=== PATIENT | female | born 1945 | race Caucasian/White ===

== ENCOUNTER 2016-11-19 08:20 | Inpatient (IN) | payer OTHER ==
[~2016-11-19] VITALS: Ht 162.6 cm; Wt 64.3 kg
[~2016-11-19 08:20] MED LIST: ALBU0.08 HHN; ALBUAER3 IN; ASP81EC PO; ATOR20TA50 PO; CARV6.2551 PO; CLOP75TA28 PO; CLOP75TA41 PO; FURO40TA4 PO; LISI-275 PO; NITR0.4S29 SL; POTA10SO11 PO
[2016-11-19 10:46] LABS: Basophils # (auto) 0.1 uL; Basophils % (auto) 0.8 % (0.0-2.0); CONDITION Y; Eosinophils # (auto) 0.1 uL; Eosinophils % (auto) 1.2 % (0.0-7.0); Hematocrit 44.5 % (36.0-46.0); Hemoglobin 14.7 g/dL (12.2-16.2); Lymphocytes # (auto) 2.1 uL; Lymphocytes % (auto) 19.4 % (10.0-50.0); Mean Corpuscular Hemoglobin 28.8 pg (28.0-32.0); Mean Corpuscular Volume 87.4 fL (80.0-100.0); Mean Platelet Volume 8.6 fL (7.4-10.4); Monocytes # (auto) 0.7 uL; Monocytes % (auto) 6.5 % (0.0-12.0); Neutrophils # (auto) 7.7 uL; Neutrophils % (auto) 72.1 % (37.0-80.0); Platelet Count (auto) 249 10^3/uL (140-450); Red Cell Distribution Width 17.2 % (11.6-16.0); White Blood Cell 10.7 10^3/uL (4.4-10.8)
[2016-11-19] MEDS ORDERED: methylPREDNISolone SOD SUCC 125 MG/2 ML VL IV ONE (11:00)
[2016-11-19] MEDS ORDERED: IPRATROPIUM BROM 0.5 MG/2.5ML INH SOL NEB ONE (11:00)
[2016-11-19] MEDS ORDERED: ALBUTEROL SULF 2.5 MG/0.5ML(0.5%) NEB SOLN NEB ONE (11:00)
[2016-11-19] MEDS ORDERED: FUROSEMIDE 20 MG/2 ML VIAL IV ONE (11:00)
[2016-11-19 11:01] LABS: INR 0.96 (0.9-1.15); Partial Thromboplastin Time 25.4 sec (22.64-33.71); Prothrombin Time 10.5 sec (9.37-12.3)
[2016-11-19 11:07] LABS: Albumin 3.6 g/dL (3.4-5.0); BUN/Creatinine Ratio 26.2; Calcium 8.7 mg/dL (8.5-10.1); Potassium 4.8 mmol/L (3.5-5.1)
[2016-11-19 11:10] LABS: Bilirubin, Total 1.2 mg/dL (0.2-1.0); Total Protein 6.7 g/dL (6.4-8.2)
[2016-11-19 11:46] LABS: Urine Bilirubin Negative (Negative); Urine Blood Negative /uL (Negative); Urine Color Yellow (Yellow); Urine Glucose Normal (Normal); Urine Hyaline Cast MOD /lpf (0 - 2); Urine Ketone Negative (Negative); Urine Nitrite Negative (Negative); Urine RBC 1 /hpf (0 - 4); Urine Squamous Epithelial Cell FEW /hpf (<5); Urine Urobilinogen Normal (Negative)
[2016-11-19 12:27] LABS: B-Type Natriuretic Peptide 2614.69 pg/mL (0-100)
[2016-11-19] MEDS ORDERED: ENOXAPARIN SOD 60 MG/0.6 ML SYRINGE SC ONE (12:30)
[2016-11-19] MEDS ORDERED: ONDANSETRON HCL 4 MG/2 ML VIAL IV ONE (12:45)
[2016-11-19] MEDS ORDERED: MORPHINE SULFATE 4 MG/ML SYRG IV ONE (12:45)
[2016-11-19 13:06] LABS: Temperature: 24.1 C (20.0-25.0)
[2016-11-19] MEDS ORDERED: NITROGLYCERIN 0.4 MG SL TAB SL PRN ×2 (15:00)
[2016-11-19] MEDS ORDERED: ZOLPIDEM TARTRATE 5 MG TAB PO PRN (15:00)
[2016-11-19] MEDS ORDERED: cefTRIAXone 1GM/50ML D5W 50 ML IV ONE (15:00)
[2016-11-19] MEDS ORDERED: LORazepam 0.5 MG TAB PO PRN (15:00)
[2016-11-19] MEDS ORDERED: ACETAMINOPHEN 325 MG TAB PO PRN (15:00)
[2016-11-19] MEDS: ONDANSETRON HCL 4 MG/2 ML VIAL IV PRN ×2 (15:26→20:30)
[2016-11-19] MEDS: HYDROmorphone HCL 2 MG/ML VL IV PRN ×2 (15:26→20:25)
[2016-11-19 15:43] VITALS: BP 125/75
[2016-11-19] MEDS: FUROSEMIDE 40 MG/4 ML VIAL IV SCH (18:00)
[2016-11-19 18:06] VITALS: BP 120/80
[2016-11-19] MEDS: ALBUTEROL SULF 2.5 MG/0.5ML(0.5%) NEB SOLN NEB SCH (18:41)
[2016-11-19 19:30] VITALS: BP 124/88
[2016-11-19] MEDS: ATORVASTATIN 20 MG TAB PO SCH (20:30)
[2016-11-19] MEDS: CARVEDILOL 3.125 MG TAB PO SCH (20:31)
[2016-11-19 22:00] VITALS: BP 124/88
[2016-11-19] MEDS: SODIUM CHLOR 0.9% PF (SALINE LOCK) 10ML VIAL IV SCH (22:00)
[2016-11-20] MEDS: ONDANSETRON HCL 4 MG/2 ML VIAL IV PRN ×3 (02:06→18:58)
[2016-11-20] MEDS: HYDROmorphone HCL 2 MG/ML VL IV PRN ×3 (02:06→18:58)
[2016-11-20 05:00] VITALS: BP 115/75
[2016-11-20] MEDS: ALBUTEROL SULF 2.5 MG/0.5ML(0.5%) NEB SOLN NEB SCH ×4 (06:03→19:28)
[2016-11-20 06:06] LABS: Basophils # (auto) 0 uL; Basophils % (auto) 0.5 % (0.0-2.0); CONDITION Y; Eosinophils # (auto) 0 uL; Eosinophils % (auto) 0.1 % (0.0-7.0); Hematocrit 43.8 % (36.0-46.0); Hemoglobin 14.4 g/dL (12.2-16.2); Lymphocytes # (auto) 1.1 uL; Lymphocytes % (auto) 14.7 % (10.0-50.0); Mean Corpuscular Hemoglobin 28.7 pg (28.0-32.0); Monocytes # (auto) 0.3 uL; Monocytes % (auto) 3.5 % (0.0-12.0); Neutrophils # (auto) 6.3 uL; Neutrophils % (auto) 81.2 % (37.0-80.0); Platelet Count (auto) 280 10^3/uL (140-450); Red Cell Distribution Width 16.9 % (11.6-16.0); SUSPECT SEE PRINTOUT; White Blood Cell 7.7 10^3/uL (4.4-10.8)
[2016-11-20] MEDS: FUROSEMIDE 40 MG/4 ML VIAL IV SCH ×2 (06:14→18:00)
[2016-11-20 06:26] LABS: Albumin 3.5 g/dL (3.4-5.0); BUN/Creatinine Ratio 30.3; Bilirubin, Total 0.7 mg/dL (0.2-1.0); Calcium 8.4 mg/dL (8.5-10.1); Magnesium 2.5 mg/dL (1.6-2.6); Potassium 4.3 mmol/L (3.5-5.1); Total Protein 6.5 g/dL (6.4-8.2)
[2016-11-20] MEDS: SODIUM CHLOR 0.9% PF (SALINE LOCK) 10ML VIAL IV SCH ×3 (07:37→22:16)
[2016-11-20 08:00] VITALS: BP 115/75
[2016-11-20 08:28] VITALS: BP 127/84
[2016-11-20] MEDS: cefTRIAXone 1GM/50ML D5W 50 ML IV SCH (09:35)
[2016-11-20] MEDS: CLOPIDOGREL BISULFATE 75 MG TAB PO SCH (09:35)
[2016-11-20] MEDS: ASPirin 81 mg TAB PO SCH (09:36)
[2016-11-20] MEDS: LISINOPRIL 5 MG TAB PO SCH (09:36)
[2016-11-20] MEDS: POTASSIUM CHL 20 Meq TABLET PO SCH (09:36)
[2016-11-20] MEDS: DOCUSATE SOD 100 MG CAP PO SCH (09:36)
[2016-11-20] MEDS: CARVEDILOL 3.125 MG TAB PO SCH ×2 (09:37→22:00)
[2016-11-20] MEDS ORDERED: POTASSIUM CHL 10% (20 MEQ/15ML) ORAL SOLN PO ONE (12:15)
[2016-11-20] MEDS ORDERED: FUROSEMIDE 20 MG/2 ML VIAL IV ONE (12:15)
[2016-11-20 12:59] VITALS: BP 100/60
[2016-11-20 16:28] VITALS: BP 92/48
[2016-11-20] MEDS: ATORVASTATIN 20 MG TAB PO SCH (22:00)
[2016-11-20 22:15] VITALS: BP 104/60
[2016-11-21 05:05] VITALS: BP 103/63
[2016-11-21] MEDS: SODIUM CHLOR 0.9% PF (SALINE LOCK) 10ML VIAL IV SCH ×3 (05:37→21:35)
[2016-11-21] MEDS: FUROSEMIDE 40 MG/4 ML VIAL IV SCH (05:42)
[2016-11-21 06:54] LABS: Basophils # (auto) 0.1 uL; Basophils % (auto) 1.1 % (0.0-2.0); CONDITION Y; Eosinophils # (auto) 0.2 uL; Eosinophils % (auto) 1.7 % (0.0-7.0); Hematocrit 45.7 % (36.0-46.0); Hemoglobin 15.4 g/dL (12.2-16.2); Lymphocytes # (auto) 2.1 uL; Lymphocytes % (auto) 19.1 % (10.0-50.0); Mean Corpuscular Hemoglobin 29.3 pg (28.0-32.0); Mean Corpuscular Hgb Conc. 33.8 g/dL (32.0-36.0); Mean Corpuscular Volume 86.7 fL (80.0-100.0); Mean Platelet Volume 8.8 fL (7.4-10.4); Monocytes # (auto) 0.8 uL; Monocytes % (auto) 6.9 % (0.0-12.0); Neutrophils # (auto) 7.8 uL; Neutrophils % (auto) 71.2 % (37.0-80.0); Platelet Count (auto) 301 10^3/uL (140-450); Red Cell Distribution Width 16.5 % (11.6-16.0); White Blood Cell 10.9 10^3/uL (4.4-10.8)
[2016-11-21] MEDS: ALBUTEROL SULF 2.5 MG/0.5ML(0.5%) NEB SOLN NEB SCH ×4 (07:07→19:42)
[2016-11-21 07:39] LABS: Albumin 3.5 g/dL (3.4-5.0); BUN/Creatinine Ratio 29.7; Bilirubin, Total 0.5 mg/dL (0.2-1.0); Calcium 8.5 mg/dL (8.5-10.1); Magnesium 2.7 mg/dL (1.6-2.6); Potassium 4.4 mmol/L (3.5-5.1); Total Protein 6.8 g/dL (6.4-8.2)
[2016-11-21 09:00] VITALS: BP 98/69
[2016-11-21] MEDS: cefTRIAXone 1GM/50ML D5W 50 ML IV SCH (09:19)
[2016-11-21] MEDS: ASPirin 81 mg TAB PO SCH (09:20)
[2016-11-21] MEDS: POTASSIUM CHL 20 Meq TABLET PO SCH (09:20)
[2016-11-21] MEDS: DOCUSATE SOD 100 MG CAP PO SCH (09:20)
[2016-11-21] MEDS: CLOPIDOGREL BISULFATE 75 MG TAB PO SCH (09:20)
[2016-11-21] MEDS: CARVEDILOL 3.125 MG TAB PO SCH ×2 (09:25→21:49)
[2016-11-21] MEDS: LISINOPRIL 5 MG TAB PO SCH (09:26)
[2016-11-21 13:05] VITALS: BP 106/76
[2016-11-21] MEDS ORDERED: KETOROLAC TROMETH 30 MG/ML 1ML VIAL IV ONE (15:45)
[2016-11-21 17:00] VITALS: BP 95/58
[2016-11-21] MEDS: ONDANSETRON HCL 4 MG/2 ML VIAL IV PRN (20:46)
[2016-11-21] MEDS: ATORVASTATIN 20 MG TAB PO SCH (21:35)
[2016-11-21 22:12] VITALS: BP 101/64
[2016-11-22 05:21] VITALS: BP 114/80
[2016-11-22] MEDS: SODIUM CHLOR 0.9% PF (SALINE LOCK) 10ML VIAL IV SCH ×3 (06:07→21:27)
[2016-11-22] MEDS: ONDANSETRON HCL 4 MG/2 ML VIAL IV PRN ×4 (06:48→21:58)
[2016-11-22 07:01] LABS: BUN/Creatinine Ratio 41.1; Calcium 8.6 mg/dL (8.5-10.1); Potassium 4.9 mmol/L (3.5-5.1)
[2016-11-22 07:08] LABS: B-Type Natriuretic Peptide 440.15 pg/mL (0-100)
[2016-11-22 07:17] LABS: Temperature: 23.9 C (20.0-25.0)
[2016-11-22] MEDS: ALBUTEROL SULF 2.5 MG/0.5ML(0.5%) NEB SOLN NEB SCH ×3 (07:48→19:33)
[2016-11-22 08:00] VITALS: BP 117/73
[2016-11-22 09:00] VITALS: BP 117/73
[2016-11-22] MEDS: CLOPIDOGREL BISULFATE 75 MG TAB PO SCH (09:34)
[2016-11-22] MEDS: ASPirin 81 mg TAB PO SCH (09:34)
[2016-11-22] MEDS: FUROSEMIDE 40 MG TAB PO SCH (09:34)
[2016-11-22] MEDS: DOCUSATE SOD 100 MG CAP PO SCH (09:34)
[2016-11-22] MEDS: LISINOPRIL 5 MG TAB PO SCH (09:35)
[2016-11-22] MEDS: CARVEDILOL 3.125 MG TAB PO SCH ×2 (09:36→21:53)
[2016-11-22] MEDS ORDERED: POTASSIUM CHL 20 Meq TABLET PO SCH (10:00)
[2016-11-22] MEDS ORDERED: FUROSEMIDE 40 MG/4 ML VIAL IV SCH (10:00)
[2016-11-22 12:59] VITALS: BP 125/65
[2016-11-22] MEDS: HYDROcodone-ACET 5/325MG TAB PO PRN ×2 (15:57→20:07)
[2016-11-22 17:13] VITALS: BP 115/67
[2016-11-22] MEDS: ATORVASTATIN 20 MG TAB PO SCH (21:27)
[2016-11-22 22:00] VITALS: BP 109/65
[2016-11-23] VITALS (7 sets, daily range): BP systolic 101–119; BP diastolic 51–74
[2016-11-23] MEDS: ALBUTEROL SULF 2.5 MG/0.5ML(0.5%) NEB SOLN NEB SCH ×3 (02:51→19:15)
[2016-11-23] MEDS: ONDANSETRON HCL 4 MG/2 ML VIAL IV PRN ×2 (02:57→07:54)
[2016-11-23] MEDS: HYDROcodone-ACET 5/325MG TAB PO PRN ×2 (02:57→07:54)
[2016-11-23] MEDS: SODIUM CHLOR 0.9% PF (SALINE LOCK) 10ML VIAL IV SCH ×2 (05:34→13:16)
[2016-11-23 07:38] LABS: BUN/Creatinine Ratio 31.5; Calcium 8.2 mg/dL (8.5-10.1); Potassium 4.7 mmol/L (3.5-5.1)
[2016-11-23] MEDS: CLOPIDOGREL BISULFATE 75 MG TAB PO SCH (09:14)
[2016-11-23] MEDS: DOCUSATE SOD 100 MG CAP PO SCH (09:14)
[2016-11-23] MEDS: ASPirin 81 mg TAB PO SCH (09:14)
[2016-11-23] MEDS: LISINOPRIL 5 MG TAB PO SCH (09:15)
[2016-11-23] MEDS: FUROSEMIDE 40 MG TAB PO SCH (09:15)
[2016-11-23] MEDS: CARVEDILOL 3.125 MG TAB PO SCH (09:15)
[2016-11-23] MEDS ORDERED: ATOR20TA50 PO (10:43)
[2016-11-23] MEDS ORDERED: CAR3125T PO (10:43)
[2016-11-23] MEDS ORDERED: LISI-275 PO (10:43)
[2016-11-23] MEDS ORDERED: FURO40TA4 PO (10:43)
[2016-11-23] MEDS ORDERED: ASP81EC PO (10:43)
[2016-11-23] MEDS ORDERED: CLOP75TA28 PO (10:43)
== END 2016-11-23 22:42 | disposition home or self-care (01) | DRG 291 ==
LOC: EDUNIT# 08:20 → ER 08:24 → TELE 08:25 → TELE-E-ADS 17:45 → TELE-WESTW 19:15
PROVIDERS: ADMIT Internal Medicine; ATTEND Internal Medicine
DX: I13.0 Hypertensive heart and chronic kidney disease with heart failure and stage 1 through stage 4 chronic kidney disease, or unspecified chronic kidney disease (principal); I50.43 Acute on chronic combined systolic (congestive) and diastolic (congestive) heart failure; J44.1 Chronic obstructive pulmonary disease with (acute) exacerbation; J96.11 Chronic respiratory failure with hypoxia; I24.9 Acute ischemic heart disease, unspecified; J44.0 Chronic obstructive pulmonary disease with (acute) lower respiratory infection; R65.10 Systemic inflammatory response syndrome (SIRS) of non-infectious origin without acute organ dysfunction; F15.10 Other stimulant abuse, uncomplicated; I25.10 Atherosclerotic heart disease of native coronary artery without angina pectoris; E78.5 Hyperlipidemia, unspecified; J20.9 Acute bronchitis, unspecified; N18.3 Chronic kidney disease, stage 3 (moderate); I25.5 Ischemic cardiomyopathy; Z99.81 Dependence on supplemental oxygen; Z91.14 Patient's other noncompliance with medication regimen; Z95.810 Presence of automatic (implantable) cardiac defibrillator; Z95.1 Presence of aortocoronary bypass graft; I25.2 Old myocardial infarction; Z90.49 Acquired absence of other specified parts of digestive tract; Z90.89 Acquired absence of other organs; Z90.710 Acquired absence of both cervix and uterus; Z88.5 Allergy status to narcotic agent
CPT/HCPCS: 36415; 70450; 71010; 71020; 80048; 80053; 80061; 80307; 81001; 83735; 83880; 84484; 85025; 85610; 85730; 87040; 93005; 93306; 94640; 96365; 96372; 96375; J0696; J1885; J2405

== ENCOUNTER 2017-06-07 03:04 | Inpatient (IN) | payer MEDICARE, OTHER ==
[~2017-06-07] VITALS: Ht 162.6 cm; Wt 65.3 kg
[~2017-06-07 03:04] MED LIST changes: +ALPR0.254 PO; -ASP81EC PO; +CAR3125T PO; -CARV6.2551 PO; -CLOP75TA41 PO; +DIG0125T PO; +FURO40TA PO; -LISI-275 PO; +MEX150C PO; -NITR0.4S29 SL; +RANO500T2 PO; +TRAM50TA2 PO; +[UNRECOGNIZED DRUG - CODE] PO
[2017-06-07] MEDS ORDERED: HYDROmorphone HCL 2 MG/ML VL IV ONE (04:45)
[2017-06-07] MEDS ORDERED: ONDANSETRON HCL 4 MG/2 ML VIAL IV ONE (04:45)
[2017-06-07 05:42] LABS: Basophils # (auto) 0.1 uL; Basophils % (auto) 0.8 % (0.0-2.0); Eosinophils # (auto) 0.1 uL; Eosinophils % (auto) 0.6 % (0.0-7.0); Hematocrit 45.9 % (36.0-46.0); Hemoglobin 15.7 g/dL (12.2-16.2); Lymphocytes # (auto) 1.7 uL; Lymphocytes % (auto) 15.6 % (10.0-50.0); Mean Corpuscular Hemoglobin 29.8 pg (28.0-32.0); Mean Corpuscular Hgb Conc. 34.1 g/dL (32.0-36.0); Mean Corpuscular Volume 87.4 fL (80.0-100.0); Monocytes # (auto) 0.6 uL; Monocytes % (auto) 5.8 % (0.0-12.0); Neutrophils # (auto) 8.2 uL; Neutrophils % (auto) 77.2 % (37.0-80.0); Nucleated Red Blood Cells % 0.1 %; Platelet Count (auto) 230 10^3/uL (140-450); Red Blood Cells 5.25 10^6/uL (4.0-5.20); Red Cell Distribution Width 14.2 % (11.8-14.3); White Blood Cell 10.7 10^3/uL (4.4-10.8)
[2017-06-07 05:55] LABS: INR 0.95 (0.9-1.15); Partial Thromboplastin Time 31.3 sec (22.64-33.71); Prothrombin Time 10.4 sec (9.37-12.3)
[2017-06-07 05:57] LABS: Albumin 3.6 g/dL (3.4-5.0); BUN/Creatinine Ratio 19.5; Calcium 8.8 mg/dL (8.5-10.1); Potassium 4.1 mmol/L (3.5-5.1)
[2017-06-07 06:01] LABS: Total Protein 7.1 g/dL (6.4-8.2)
[2017-06-07 06:25] LABS: Urine Bacteria NONE SEEN /hpf (None Seen); Urine Blood Negative /uL (Negative); Urine Hyaline Cast FEW /lpf (0 - 2); Urine Mucus FEW (None Seen); Urine Specific Gravity 1.024 (1.001-1.035); Urine WBC 6 /hpf (0 - 5)
[2017-06-07] MEDS ORDERED: FUROSEMIDE 40 MG/4 ML VIAL IV ONE ×2 (07:30→16:30)
[2017-06-07] MEDS ORDERED: LACTULOSE 20Gm/30ML SOLN PO PRN (09:00)
[2017-06-07] MEDS ORDERED: TEMAZEPAM 15 MG CAP PO PRN (09:00)
[2017-06-07] MEDS: cefTRIAXone 1GM/10ml IVPUSH 10 ML IV SCH (09:00)
[2017-06-07] MEDS ORDERED: ALBUTEROL SULF 2.5 MG/0.5ML(0.5%) NEB SOLN NEB PRN (09:00)
[2017-06-07] MEDS ORDERED: NITROGLYCERIN 0.4 MG SL TAB SL PRN (09:00)
[2017-06-07] MEDS ORDERED: ACETAMINOPHEN 500 MG TAB PO PRN (09:00)
[2017-06-07] MEDS ORDERED: HYDROcodone-ACET 5/325MG TAB PO PRN (09:00)
[2017-06-07] MEDS ORDERED: OSELTAMIVIR 75 MG CAP PO ONE (09:00)
[2017-06-07] MEDS ORDERED: ALPRAZolam 0.25 MG TAB PO PRN (09:00)
[2017-06-07] MEDS ORDERED: LORazepam 0.5 MG TAB PO PRN (09:00)
[2017-06-07] MEDS ORDERED: IOHEXOL 350 MG/ML 100ML IJ ONE (09:09)
[2017-06-07] MEDS: ENOXAPARIN SOD 60 MG/0.6 ML SYRINGE SC SCH ×2 (09:53→22:23)
[2017-06-07] MEDS: FUROSEMIDE 40 MG/4 ML VIAL IV SCH (09:54)
[2017-06-07] MEDS: ASPirin 81 mg TAB PO SCH (09:55)
[2017-06-07] MEDS: CARVEDILOL 3.125 MG TAB PO SCH ×2 (09:55→22:00)
[2017-06-07] MEDS: CLOPIDOGREL BISULFATE 75 MG TAB PO SCH (09:55)
[2017-06-07] MEDS: MEXILETINE HYDROCHLORIDE 150 MG CAP PO SCH ×2 (09:56→22:36)
[2017-06-07] MEDS: PANTOPRAZOLE 40 MG TAB PO SCH (09:56)
[2017-06-07] MEDS: ENALAPRIL MALEATE 2.5 MG TAB PO SCH (09:57)
[2017-06-07] MEDS: NITROGLYCERIN 0.2MG/HR TOPICAL PATCH TD SCH (09:59)
[2017-06-07] MEDS ORDERED: DIGOXIN 0.125 MG TAB PO SCH (10:00)
[2017-06-07] MEDS: DOXYCYCLINE HYC 100MG/250ML 250 ML IV SCH ×2 (10:00→22:00)
[2017-06-07] MEDS ORDERED: POTASSIUM CHL 20 Meq TABLET PO SCH (10:00)
[2017-06-07 10:14] LABS: Alcohol, Urine < 3.0 mg/dL (0-5); Amphetamine Screen, Urine POSITIVE (NEGATIVE); Barbiturate Scree,Urine NEGATIVE (NEGATIVE); Benzodiazephine Screen, Urine NEGATIVE (NEGATIVE); Cannabinoid Screen, Urine NEGATIVE (NEGATIVE); Cocaine Screen, Urine NEGATIVE (NEGATIVE); Opiate Scree,Urine NEGATIVE (NEGATIVE); Phencyclidine Screen, Urine NEGATIVE (NEGATIVE)
[2017-06-07] MEDS: PROMETHAZINE HCL 25 MG/ML 1ML IV PRN ×2 (10:34→22:22)
[2017-06-07] MEDS: HYDROmorphone HCL 2 MG/ML VL IV PRN ×4 (10:34→23:05)
[2017-06-07 10:43] VITALS: BP 131/84
[2017-06-07] MEDS: RANOLAZINE ER 500 MG TAB PO SCH ×3 (11:27→23:08)
[2017-06-07] MEDS: POTASSIUM CHL 20 Meq TABLET PO SCH ×2 (12:08→18:25)
[2017-06-07] MEDS: IPRATROPIUM BROM 0.5 MG/2.5ML INH SOL NEB SCH ×2 (12:40→19:53)
[2017-06-07] MEDS: ALBUTEROL SULF 2.5 MG/0.5ML(0.5%) NEB SOLN NEB SCH ×2 (12:40→19:54)
[2017-06-07] MEDS: SODIUM CHLOR 0.9% PF (SALINE LOCK) 10ML VIAL IV SCH ×2 (15:09→22:00)
[2017-06-07 20:00] VITALS: BP 99/81
[2017-06-07] MEDS: ATORVASTATIN 20 MG TAB PO SCH (22:36)
[2017-06-07 22:48] VITALS: BP 98/81
[2017-06-07] MEDS: OSELTAMIVIR 75 MG CAP PO SCH (23:05)
[2017-06-08] MEDS: ALBUTEROL SULF 2.5 MG/0.5ML(0.5%) NEB SOLN NEB SCH ×3 (00:49→12:00)
[2017-06-08] MEDS: IPRATROPIUM BROM 0.5 MG/2.5ML INH SOL NEB SCH ×4 (00:50→18:25)
[2017-06-08] MEDS: PROMETHAZINE HCL 25 MG/ML 1ML IV PRN ×3 (03:50→21:30)
[2017-06-08] MEDS: HYDROmorphone HCL 2 MG/ML VL IV PRN ×3 (03:50→21:30)
[2017-06-08] MEDS: SODIUM CHLOR 0.9% PF (SALINE LOCK) 10ML VIAL IV SCH ×3 (05:45→21:26)
[2017-06-08 05:49] VITALS: BP 82/57
[2017-06-08 07:19] LABS: Basophils # (auto) 0 uL; Basophils % (auto) 0.7 % (0.0-2.0); Eosinophils # (auto) 0.3 uL; Eosinophils % (auto) 4.6 % (0.0-7.0); Hematocrit 51.9 % (36.0-46.0); Hemoglobin 16.7 g/dL (12.2-16.2); Lymphocytes # (auto) 1.4 uL; Lymphocytes % (auto) 23.4 % (10.0-50.0); Mean Corpuscular Hemoglobin 29.6 pg (28.0-32.0); Mean Corpuscular Hgb Conc. 32.2 g/dL (32.0-36.0); Mean Corpuscular Volume 91.9 fL (80.0-100.0); Monocytes # (auto) 0.5 uL; Monocytes % (auto) 9.2 % (0.0-12.0); Neutrophils # (auto) 3.6 uL; Neutrophils % (auto) 62.1 % (37.0-80.0); Nucleated Red Blood Cells % 0.2 %; Platelet Count (auto) 182 10^3/uL (140-450); Red Blood Cells 5.65 10^6/uL (4.0-5.20); Red Cell Distribution Width 15.2 % (11.8-14.3); White Blood Cell 5.9 10^3/uL (4.4-10.8)
[2017-06-08 07:55] LABS: BUN/Creatinine Ratio 19.6; Bilirubin, Total 0.6 mg/dL (0.2-1.0); Potassium 4.4 mmol/L (3.5-5.1); Total Protein 6.4 g/dL (6.4-8.2)
[2017-06-08 08:00] VITALS: BP 99/81
[2017-06-08 09:00] VITALS: BP 101/67
[2017-06-08] MEDS: POTASSIUM CHL 20 Meq TABLET PO SCH ×3 (09:28→18:05)
[2017-06-08] MEDS: cefTRIAXone 1GM/10ml IVPUSH 10 ML IV SCH (09:28)
[2017-06-08] MEDS: ENOXAPARIN SOD 60 MG/0.6 ML SYRINGE SC SCH ×2 (10:00→21:28)
[2017-06-08] MEDS: OSELTAMIVIR 75 MG CAP PO SCH ×3 (10:00→21:55)
[2017-06-08] MEDS: RANOLAZINE ER 500 MG TAB PO SCH ×2 (10:00→21:29)
[2017-06-08] MEDS: DOXYCYCLINE HYC 100MG/250ML 250 ML IV SCH ×2 (10:46→21:30)
[2017-06-08] MEDS: FUROSEMIDE 40 MG/4 ML VIAL IV SCH (10:46)
[2017-06-08] MEDS: ASPirin 81 mg TAB PO SCH (10:46)
[2017-06-08] MEDS: MEXILETINE HYDROCHLORIDE 150 MG CAP PO SCH ×2 (10:48→21:27)
[2017-06-08] MEDS: CLOPIDOGREL BISULFATE 75 MG TAB PO SCH (10:48)
[2017-06-08] MEDS: PANTOPRAZOLE 40 MG TAB PO SCH (10:48)
[2017-06-08] MEDS: CARVEDILOL 3.125 MG TAB PO SCH ×2 (10:48→21:28)
[2017-06-08] MEDS: ENALAPRIL MALEATE 2.5 MG TAB PO SCH (10:50)
[2017-06-08] MEDS: NITROGLYCERIN 0.2MG/HR TOPICAL PATCH TD SCH (10:50)
[2017-06-08 13:00] VITALS: BP 115/76
[2017-06-08 17:00] VITALS: BP 112/67
[2017-06-08] MEDS: ATORVASTATIN 20 MG TAB PO SCH (21:27)
[2017-06-08 22:14] VITALS: BP 121/82
[2017-06-09] VITALS (7 sets, daily range): BP systolic 94–132; BP diastolic 56–90
[2017-06-09] MEDS: IPRATROPIUM BROM 0.5 MG/2.5ML INH SOL NEB SCH ×4 (00:22→18:41)
[2017-06-09] MEDS: PROMETHAZINE HCL 25 MG/ML 1ML IV PRN ×2 (02:35→09:12)
[2017-06-09] MEDS: HYDROmorphone HCL 2 MG/ML VL IV PRN ×2 (02:36→09:11)
[2017-06-09] MEDS: SODIUM CHLOR 0.9% PF (SALINE LOCK) 10ML VIAL IV SCH ×3 (06:52→22:00)
[2017-06-09] MEDS: POTASSIUM CHL 20 Meq TABLET PO SCH ×3 (09:11→17:46)
[2017-06-09] MEDS: cefTRIAXone 1GM/10ml IVPUSH 10 ML IV SCH (09:11)
[2017-06-09] MEDS: FUROSEMIDE 40 MG/4 ML VIAL IV SCH (11:55)
[2017-06-09] MEDS: DOXYCYCLINE HYC 100MG/250ML 250 ML IV SCH (11:55)
[2017-06-09] MEDS: ASPirin 81 mg TAB PO SCH (11:56)
[2017-06-09] MEDS: MEXILETINE HYDROCHLORIDE 150 MG CAP PO SCH ×2 (11:56→22:01)
[2017-06-09] MEDS: CLOPIDOGREL BISULFATE 75 MG TAB PO SCH (11:56)
[2017-06-09] MEDS: PANTOPRAZOLE 40 MG TAB PO SCH (11:56)
[2017-06-09] MEDS: CARVEDILOL 3.125 MG TAB PO SCH ×2 (11:56→22:02)
[2017-06-09] MEDS: RANOLAZINE ER 500 MG TAB PO SCH ×2 (11:57→22:01)
[2017-06-09] MEDS: ENALAPRIL MALEATE 2.5 MG TAB PO SCH (11:57)
[2017-06-09] MEDS: NITROGLYCERIN 0.2MG/HR TOPICAL PATCH TD SCH (11:57)
[2017-06-09] MEDS: ENOXAPARIN SOD 60 MG/0.6 ML SYRINGE SC SCH ×2 (11:57→22:01)
[2017-06-09] MEDS: ATORVASTATIN 20 MG TAB PO SCH (22:01)
[2017-06-09] MEDS: DOXYCYCLINE 100 MG TAB/CAP PO SCH (22:01)
[2017-06-10] VITALS (8 sets, daily range): BP systolic 100–139; BP diastolic 69–84
[2017-06-10] MEDS: IPRATROPIUM BROM 0.5 MG/2.5ML INH SOL NEB SCH ×4 (01:01→19:00)
[2017-06-10] MEDS: SODIUM CHLOR 0.9% PF (SALINE LOCK) 10ML VIAL IV SCH ×3 (06:00→21:30)
[2017-06-10] MEDS: FUROSEMIDE 40 MG/4 ML VIAL IV SCH (10:00)
[2017-06-10] MEDS: POTASSIUM CHL 20 Meq TABLET PO SCH ×3 (10:03→17:45)
[2017-06-10] MEDS: CLOPIDOGREL BISULFATE 75 MG TAB PO SCH (10:40)
[2017-06-10] MEDS: ENOXAPARIN SOD 60 MG/0.6 ML SYRINGE SC SCH ×2 (10:40→21:28)
[2017-06-10] MEDS: DOXYCYCLINE 100 MG TAB/CAP PO SCH ×2 (10:40→21:28)
[2017-06-10] MEDS: MEXILETINE HYDROCHLORIDE 150 MG CAP PO SCH ×2 (10:40→21:28)
[2017-06-10] MEDS: CARVEDILOL 3.125 MG TAB PO SCH ×2 (10:41→22:00)
[2017-06-10] MEDS: ASPirin 81 mg TAB PO SCH (10:41)
[2017-06-10] MEDS: ENALAPRIL MALEATE 10 MG TAB PO SCH (10:42)
[2017-06-10] MEDS: NITROGLYCERIN 0.2MG/HR TOPICAL PATCH TD SCH (10:43)
[2017-06-10] MEDS: PANTOPRAZOLE 40 MG TAB PO SCH (12:50)
[2017-06-10] MEDS: RANOLAZINE ER 500 MG TAB PO SCH ×2 (12:51→21:28)
[2017-06-10] MEDS ORDERED: IPRATROPIUM BROM 0.5 MG/2.5ML INH SOL NEB ONE (13:30)
[2017-06-10] MEDS ORDERED: LEVOFLOXACIN 500 MG TAB PO ONE (13:45)
[2017-06-10] MEDS: ATORVASTATIN 20 MG TAB PO SCH (21:28)
[2017-06-11] MEDS: IPRATROPIUM BROM 0.5 MG/2.5ML INH SOL NEB SCH ×4 (00:35→19:43)
[2017-06-11 05:00] VITALS: BP 125/87
[2017-06-11] MEDS: SODIUM CHLOR 0.9% PF (SALINE LOCK) 10ML VIAL IV SCH ×2 (06:00→14:00)
[2017-06-11 06:23] LABS: Basophils # (auto) 0 uL; Basophils % (auto) 0.7 % (0.0-2.0); Eosinophils # (auto) 0.3 uL; Eosinophils % (auto) 4.8 % (0.0-7.0); Hematocrit 46.2 % (36.0-46.0); Hemoglobin 15.5 g/dL (12.2-16.2); Lymphocytes # (auto) 1.7 uL; Lymphocytes % (auto) 25.8 % (10.0-50.0); Mean Corpuscular Hemoglobin 29.4 pg (28.0-32.0); Mean Corpuscular Hgb Conc. 33.6 g/dL (32.0-36.0); Mean Corpuscular Volume 87.4 fL (80.0-100.0); Monocytes # (auto) 0.8 uL; Monocytes % (auto) 11.8 % (0.0-12.0); Neutrophils # (auto) 3.7 uL; Neutrophils % (auto) 56.9 % (37.0-80.0); Nucleated Red Blood Cells % 0.2 %; Platelet Count (auto) 262 10^3/uL (140-450); Red Blood Cells 5.28 10^6/uL (4.0-5.20); Red Cell Distribution Width 14.4 % (11.8-14.3); White Blood Cell 6.5 10^3/uL (4.4-10.8)
[2017-06-11 06:40] LABS: Albumin 3.1 g/dL (3.4-5.0); BUN/Creatinine Ratio 30.5; Bilirubin, Total 0.6 mg/dL (0.2-1.0); Potassium 4.9 mmol/L (3.5-5.1); Total Protein 6.3 g/dL (6.4-8.2)
[2017-06-11 08:05] VITALS: BP 112/70
[2017-06-11] MEDS: ENALAPRIL MALEATE 10 MG TAB PO SCH (09:56)
[2017-06-11] MEDS: NITROGLYCERIN 0.2MG/HR TOPICAL PATCH TD SCH (09:56)
[2017-06-11] MEDS: PANTOPRAZOLE 40 MG TAB PO SCH (09:56)
[2017-06-11] MEDS: DOXYCYCLINE 100 MG TAB/CAP PO SCH (09:56)
[2017-06-11] MEDS: CLOPIDOGREL BISULFATE 75 MG TAB PO SCH (09:57)
[2017-06-11] MEDS: POTASSIUM CHL 20 Meq TABLET PO SCH ×3 (09:57→18:38)
[2017-06-11] MEDS: ASPirin 81 mg TAB PO SCH (09:57)
[2017-06-11] MEDS: RANOLAZINE ER 500 MG TAB PO SCH (09:57)
[2017-06-11] MEDS: MEXILETINE HYDROCHLORIDE 150 MG CAP PO SCH (09:57)
[2017-06-11] MEDS: CARVEDILOL 3.125 MG TAB PO SCH (09:58)
[2017-06-11] MEDS: FUROSEMIDE 40 MG/4 ML VIAL IV SCH (09:59)
[2017-06-11] MEDS ORDERED: LEVOFLOXACIN 500 MG TAB PO SCH (10:00)
[2017-06-11] MEDS: ENOXAPARIN SOD 60 MG/0.6 ML SYRINGE SC SCH (10:00)
[2017-06-11] MEDS ORDERED: LEVOFLOXACIN 250 MG TAB PO SCH (10:00)
[2017-06-11] MEDS: HYDROmorphone HCL 2 MG/ML VL IV PRN ×2 (10:38→16:43)
[2017-06-11 10:56] VITALS: BP 112/70
[2017-06-11] MEDS ORDERED: FUROSEMIDE 40 MG TAB PO ONE (11:00)
[2017-06-11] MEDS: PROMETHAZINE HCL 25 MG/ML 1ML IV PRN ×2 (11:34→16:42)
[2017-06-11 14:11] VITALS: BP 118/76
[2017-06-11 17:33] VITALS: BP 122/80
[2017-07-12] MEDS ORDERED: ALPR0.254 PO (10:53)
[2017-07-12] MEDS ORDERED: MEX150C PO (10:53)
[2017-07-12] MEDS ORDERED: MUPI2OIN10 EACHNOSTRI (10:57)
== END 2017-06-11 21:40 | disposition home or self-care (01) | DRG 280 ==
LOC: EDBD 03:04 → ER 03:04 → TELE 03:05 → TELE-EAST 14:02
PROVIDERS: ADMIT Internal Medicine; ATTEND Family Medicine
DX: I21.A1 Myocardial infarction type 2 (principal); I50.43 Acute on chronic combined systolic (congestive) and diastolic (congestive) heart failure; E11.22 Type 2 diabetes mellitus with diabetic chronic kidney disease; N18.3 Chronic kidney disease, stage 3 (moderate); J44.1 Chronic obstructive pulmonary disease with (acute) exacerbation; I13.0 Hypertensive heart and chronic kidney disease with heart failure and stage 1 through stage 4 chronic kidney disease, or unspecified chronic kidney disease; N39.0 Urinary tract infection, site not specified; E78.00 Pure hypercholesterolemia, unspecified; E78.5 Hyperlipidemia, unspecified; F15.10 Other stimulant abuse, uncomplicated; I25.10 Atherosclerotic heart disease of native coronary artery without angina pectoris; I25.5 Ischemic cardiomyopathy; Z82.49 Family history of ischemic heart disease and other diseases of the circulatory system; Z83.3 Family history of diabetes mellitus; I25.2 Old myocardial infarction; Z90.710 Acquired absence of both cervix and uterus; Z87.891 Personal history of nicotine dependence; Z95.1 Presence of aortocoronary bypass graft; Z95.810 Presence of automatic (implantable) cardiac defibrillator; Z88.5 Allergy status to narcotic agent; Z79.82 Long term (current) use of aspirin
CPT/HCPCS: 36415; 71045; 80053; 80061; 80307; 81001; 82550; 83880; 84443; 84484; 85025; 85379; 85610; 85652; 85730; 86141; 87086; 87400; 93005; 93970; 94640; 96365; 96375; 96376; J2405; J3490

== ENCOUNTER 2017-07-09 15:44 | Inpatient (IN) | payer MEDICARE ==
[~2017-07-09] VITALS: Ht 162.6 cm; Wt 63.6 kg
[2017-07-09 18:03] LABS: Basophils # (auto) 0 uL; Basophils % (auto) 0.3 % (0.0-2.0); Eosinophils # (auto) 0.2 uL; Eosinophils % (auto) 1.4 % (0.0-7.0); Hematocrit 49.1 % (36.0-46.0); Hemoglobin 16.2 g/dL (12.2-16.2); Lymphocytes # (auto) 3.1 uL; Lymphocytes % (auto) 21.1 % (10.0-50.0); Mean Corpuscular Hemoglobin 28.8 pg (28.0-32.0); Mean Corpuscular Hgb Conc. 33.1 g/dL (32.0-36.0); Mean Corpuscular Volume 86.9 fL (80.0-100.0); Monocytes # (auto) 1.4 uL; Monocytes % (auto) 9.6 % (0.0-12.0); Neutrophils % (auto) 67.6 % (37.0-80.0); Nucleated Red Blood Cells % 0.2 %; Platelet Count (auto) 355 10^3/uL (140-450); Red Blood Cells 5.65 10^6/uL (4.0-5.20); Red Cell Distribution Width 15.4 % (11.8-14.3); White Blood Cell 14.7 10^3/uL (4.4-10.8)
[2017-07-09 18:06] LABS: Albumin 3.8 g/dL (3.4-5.0); BUN/Creatinine Ratio 24.8; Calcium 9.7 mg/dL (8.5-10.1); Magnesium 2.4 mg/dL (1.6-2.6)
[2017-07-09 18:13] LABS: Total Protein 7.3 g/dL (6.4-8.2)
[2017-07-09] MEDS ORDERED: ASPirin 81 mg TAB PO ONE (19:30)
[2017-07-09 23:38] LABS: Urine WBC None Seen /hpf (0 - 5)
[2017-07-10 00:18] LABS: Urine Bacteria NONE SEEN /hpf (None Seen); Urine Blood Negative /uL (Negative); Urine Specific Gravity 1.011 (1.001-1.035)
[2017-07-10] MEDS ORDERED: NITROGLYCERIN 0.4 MG SL TAB SL PRN (00:30)
[2017-07-10] MEDS ORDERED: HYDROmorphone HCL 2 MG/ML VL IV PRN (00:30)
[2017-07-10] MEDS ORDERED: ACETAMINOPHEN 500 MG TAB PO PRN (00:30)
[2017-07-10] MEDS: traMADol HCL 50 MG TAB PO PRN ×2 (01:05→09:12)
[2017-07-10 01:23] LABS: Cholesterol 241 mg/dL (< 200); HDL Cholesterol 72 mg/dL (40-59); LDL Cholesterol 159 mg/dL (< 100); Triglycerides 176 mg/dL (< 150)
[2017-07-10] MEDS: ONDANSETRON HCL 4 MG/2 ML VIAL IV PRN ×4 (01:47→21:42)
[2017-07-10] MEDS: LORazepam 0.5 MG TAB PO PRN (05:29)
[2017-07-10 06:38] LABS: Basophils # (auto) 0.1 uL; Basophils % (auto) 0.6 % (0.0-2.0); Eosinophils # (auto) 0.3 uL; Eosinophils % (auto) 2.8 % (0.0-7.0); Hematocrit 49.5 % (36.0-46.0); Hemoglobin 16.5 g/dL (12.2-16.2); Lymphocytes # (auto) 4.5 uL; Lymphocytes % (auto) 37.8 % (10.0-50.0); Mean Corpuscular Hemoglobin 29.1 pg (28.0-32.0); Mean Corpuscular Hgb Conc. 33.3 g/dL (32.0-36.0); Mean Corpuscular Volume 87.4 fL (80.0-100.0); Monocytes # (auto) 1.1 uL; Monocytes % (auto) 8.9 % (0.0-12.0); Neutrophils % (auto) 49.9 % (37.0-80.0); Nucleated Red Blood Cells % 0.1 %; Platelet Count (auto) 334 10^3/uL (140-450); Red Blood Cells 5.67 10^6/uL (4.0-5.20); Red Cell Distribution Width 15.4 % (11.8-14.3)
[2017-07-10 06:46] LABS: INR 0.98 (0.9-1.15); Partial Thromboplastin Time 26.4 sec (22.64-33.71); Prothrombin Time 10.7 sec (9.37-12.3)
[2017-07-10 06:59] LABS: BUN/Creatinine Ratio 25.7; Calcium 9.8 mg/dL (8.5-10.1); Potassium 4.1 mmol/L (3.5-5.1)
[2017-07-10] MEDS: POTASSIUM CHLORIDE 8 MEQ TAB PO SCH (09:11)
[2017-07-10] MEDS: ASPirin-EC 81 mg tab PO SCH (09:11)
[2017-07-10] MEDS: FUROSEMIDE 20 MG TAB PO SCH (09:12)
[2017-07-10 12:04] VITALS: BP 100/66
[2017-07-10] MEDS ORDERED: IPRATROPIUM BROM 0.5 MG/2.5ML INH SOL NEB PRN (14:45)
[2017-07-10] MEDS ORDERED: CLOPIDOGREL BISULFATE 75 MG TAB PO ONE (14:45)
[2017-07-10] MEDS: HYDROmorphone HCL 2 MG TAB PO PRN ×3 (14:48→23:10)
[2017-07-10 15:24] LABS: Alcohol, Urine < 3.0 mg/dL (0-5); Amphetamine Screen, Urine NEGATIVE (NEGATIVE); Barbiturate Scree,Urine NEGATIVE (NEGATIVE); Benzodiazephine Screen, Urine NEGATIVE (NEGATIVE); Cannabinoid Screen, Urine NEGATIVE (NEGATIVE); Cocaine Screen, Urine NEGATIVE (NEGATIVE); Opiate Scree,Urine NEGATIVE (NEGATIVE); Phencyclidine Screen, Urine NEGATIVE (NEGATIVE)
[2017-07-10 16:00] VITALS: BP 100/66
[2017-07-10 17:32] VITALS: BP 100/66
[2017-07-10] MEDS: ALBUTEROL SULF 2.5 MG/0.5ML(0.5%) NEB SOLN NEB PRN (19:27)
[2017-07-10] MEDS: IPRATROPIUM BROM 0.5 MG/2.5ML INH SOL NEB PRN (19:27)
[2017-07-10 20:00] VITALS: BP 105/65
[2017-07-10] MEDS: MEXILETINE HYDROCHLORIDE 150 MG CAP PO SCH (21:41)
[2017-07-10] MEDS: RANOLAZINE ER 500 MG TAB PO SCH (21:41)
[2017-07-10] MEDS: ATORVASTATIN 20 MG TAB PO SCH (21:41)
[2017-07-10] MEDS: CARVEDILOL 3.125 MG TAB PO SCH (21:41)
[2017-07-10 22:41] VITALS: BP 105/65
[2017-07-11] MEDS: LORazepam 0.5 MG TAB PO PRN ×2 (02:14→12:10)
[2017-07-11 05:14] VITALS: BP 111/75
[2017-07-11 05:55] LABS: Hematocrit 42.8 % (36.0-46.0); Hemoglobin 14.4 g/dL (12.2-16.2); Mean Corpuscular Hemoglobin 29.3 pg (28.0-32.0); Mean Corpuscular Hgb Conc. 33.6 g/dL (32.0-36.0); Mean Corpuscular Volume 87.2 fL (80.0-100.0); Platelet Count (auto) 320 10^3/uL (140-450); Red Cell Distribution Width 15.1 % (11.8-14.3); White Blood Cell 9.7 10^3/uL (4.4-10.8)
[2017-07-11 06:07] LABS: Calcium 8.9 mg/dL (8.5-10.1)
[2017-07-11 06:10] LABS: BUN/Creatinine Ratio 29.5
[2017-07-11 06:24] LABS: Band Neutrophils % (manual) 0; Basophils % (manual) 0 (0.0-2.0); Blast Cells 0; Metamyelocytes % 0; Myelocytes % 0; Promyelocytes % 0; Reactive Lymphocytes 0
[2017-07-11 08:00] LABS: Eosinophils % (manual) 5 (0-7); Lymphocytes % (manual) 40 (10.0-50.0); Monocytes % (manual) 8 (0-12)
[2017-07-11] MEDS: HYDROmorphone HCL 2 MG TAB PO PRN ×4 (08:24→22:38)
[2017-07-11] MEDS: ONDANSETRON HCL 4 MG/2 ML VIAL IV PRN ×3 (08:24→21:50)
[2017-07-11] MEDS: ALBUTEROL SULF 2.5 MG/0.5ML(0.5%) NEB SOLN NEB PRN ×2 (08:58→16:15)
[2017-07-11] MEDS: IPRATROPIUM BROM 0.5 MG/2.5ML INH SOL NEB PRN ×2 (08:58→16:15)
[2017-07-11 09:00] VITALS: BP 104/63
[2017-07-11] MEDS: RANOLAZINE ER 500 MG TAB PO SCH ×2 (09:07→21:50)
[2017-07-11] MEDS: DIGOXIN 0.125 MG TAB PO SCH (09:07)
[2017-07-11] MEDS: ASPirin-EC 81 mg tab PO SCH (09:07)
[2017-07-11] MEDS: POTASSIUM CHLORIDE 8 MEQ TAB PO SCH (09:08)
[2017-07-11] MEDS: CLOPIDOGREL BISULFATE 75 MG TAB PO SCH (09:08)
[2017-07-11] MEDS: FUROSEMIDE 20 MG TAB PO SCH (09:10)
[2017-07-11] MEDS: CARVEDILOL 3.125 MG TAB PO SCH ×2 (09:10→21:49)
[2017-07-11] MEDS: MEXILETINE HYDROCHLORIDE 150 MG CAP PO SCH ×2 (09:35→21:50)
[2017-07-11 13:00] VITALS: BP 98/65
[2017-07-11 17:00] VITALS: BP 110/69
[2017-07-11] MEDS: traMADol HCL 50 MG TAB PO PRN (17:18)
[2017-07-11] MEDS: ATORVASTATIN 20 MG TAB PO SCH (21:49)
[2017-07-11 22:00] VITALS: BP 107/64
[2017-07-12] MEDS: ALBUTEROL SULF 2.5 MG/0.5ML(0.5%) NEB SOLN NEB PRN ×3 (00:29→17:00)
[2017-07-12] MEDS: IPRATROPIUM BROM 0.5 MG/2.5ML INH SOL NEB PRN ×3 (00:29→17:00)
[2017-07-12] MEDS: LORazepam 0.5 MG TAB PO PRN ×2 (01:14→14:41)
[2017-07-12] MEDS: HYDROmorphone HCL 2 MG TAB PO PRN ×4 (03:57→16:52)
[2017-07-12 06:29] VITALS: BP 107/69
[2017-07-12 06:52] LABS: Calcium 8.2 mg/dL (8.5-10.1); Magnesium 2.7 mg/dL (1.6-2.6); Potassium 4.3 mmol/L (3.5-5.1)
[2017-07-12 06:54] LABS: BUN/Creatinine Ratio 24.8
[2017-07-12] MEDS: ONDANSETRON HCL 4 MG/2 ML VIAL IV PRN ×2 (07:03→12:38)
[2017-07-12] MEDS: ASPirin-EC 81 mg tab PO SCH (08:42)
[2017-07-12] MEDS: RANOLAZINE ER 500 MG TAB PO SCH (08:42)
[2017-07-12] MEDS: FUROSEMIDE 20 MG TAB PO SCH (08:42)
[2017-07-12] MEDS: DIGOXIN 0.125 MG TAB PO SCH (08:42)
[2017-07-12] MEDS: CLOPIDOGREL BISULFATE 75 MG TAB PO SCH (08:42)
[2017-07-12] MEDS: POTASSIUM CHLORIDE 8 MEQ TAB PO SCH (08:43)
[2017-07-12] MEDS: CARVEDILOL 3.125 MG TAB PO SCH (08:43)
[2017-07-12] MEDS: MEXILETINE HYDROCHLORIDE 150 MG CAP PO SCH (08:49)
[2017-07-12 09:00] VITALS: BP 91/58
[2017-07-12] MEDS ORDERED: MEX150C PO (10:53)
[2017-07-12] MEDS ORDERED: ALPR0.254 PO (10:53)
[2017-07-12] MEDS ORDERED: MUPI2OIN10 EACHNOSTRI (10:57)
[2017-07-12] MEDS ORDERED: diphenhdrAMINE HCL 25 MG CAP PO ONE (12:30)
[2017-07-12 13:00] VITALS: BP 110/72
[2017-07-12 16:49] VITALS: BP 93/68
== END 2017-07-12 20:40 | disposition home or self-care (01) | DRG 291 ==
LOC: ER 15:46 → TELE 15:47 → TELE-WESTW 07-10 08:35
PROVIDERS: ADMIT Nurse Practitioner Family; ATTEND Internal Medicine
DX: I13.0 Hypertensive heart and chronic kidney disease with heart failure and stage 1 through stage 4 chronic kidney disease, or unspecified chronic kidney disease (principal); I50.23 Acute on chronic systolic (congestive) heart failure; J96.11 Chronic respiratory failure with hypoxia; E11.22 Type 2 diabetes mellitus with diabetic chronic kidney disease; E11.51 Type 2 diabetes mellitus with diabetic peripheral angiopathy without gangrene; R07.89 Other chest pain; I25.10 Atherosclerotic heart disease of native coronary artery without angina pectoris; N18.3 Chronic kidney disease, stage 3 (moderate); E78.5 Hyperlipidemia, unspecified; D72.829 Elevated white blood cell count, unspecified; I25.5 Ischemic cardiomyopathy; I48.91 Unspecified atrial fibrillation; F41.9 Anxiety disorder, unspecified; F15.10 Other stimulant abuse, uncomplicated; Y92.89 Other specified places as the place of occurrence of the external cause; J44.9 Chronic obstructive pulmonary disease, unspecified; Z82.49 Family history of ischemic heart disease and other diseases of the circulatory system; Z99.81 Dependence on supplemental oxygen; Z90.710 Acquired absence of both cervix and uterus; Z91.14 Patient's other noncompliance with medication regimen; Z95.1 Presence of aortocoronary bypass graft; Z95.810 Presence of automatic (implantable) cardiac defibrillator; Z79.82 Long term (current) use of aspirin; Z79.899 Other long term (current) drug therapy; Z88.5 Allergy status to narcotic agent; I25.2 Old myocardial infarction; Z90.49 Acquired absence of other specified parts of digestive tract
CPT/HCPCS: 36415; 71046; 80048; 80053; 80061; 80162; 80307; 81001; 83735; 83880; 84484; 85007; 85025; 85027; 85379; 85610; 85730; 87040; 87081; 93005; 94640; 94761; J2405

== ENCOUNTER 2017-07-22 21:21 | Inpatient (IN) | payer MEDICARE ==
[~2017-07-22] VITALS: Ht 162.6 cm; Wt 63.9 kg
[~2017-07-22 21:21] MED LIST changes: +MUPI2OIN10 EACHNOSTRI
[2017-07-22] MEDS ORDERED: ONDANSETRON HCL 4 MG/2 ML VIAL IV ONE (23:15)
[2017-07-22] MEDS ORDERED: MEPERIDINE HCL (25 MG/ML) 1ML VIAL IV ONE (23:45)
[2017-07-22 23:53] LABS: Hematocrit 49.4 % (36.0-46.0); Hemoglobin 16.3 g/dL (12.2-16.2); Mean Corpuscular Hemoglobin 28.8 pg (28.0-32.0); Mean Corpuscular Hgb Conc. 32.9 g/dL (32.0-36.0); Mean Corpuscular Volume 87.3 fL (80.0-100.0); Platelet Count (auto) 311 10^3/uL (140-450); Red Blood Cells 5.66 10^6/uL (4.0-5.20); Red Cell Distribution Width 16.1 % (11.8-14.3); White Blood Cell 11.8 10^3/uL (4.4-10.8)
[2017-07-23 00:01] LABS: Basophils % (manual) 0 (0.0-2.0); Blast Cells 0; Myelocytes % 0; Promyelocytes % 0; Reactive Lymphocytes 0
[2017-07-23 00:09] LABS: INR 0.99 (0.9-1.15); Partial Thromboplastin Time 29.6 sec (22.64-33.71); Prothrombin Time 10.8 sec (9.37-12.3)
[2017-07-23 00:10] LABS: Albumin 3.7 g/dL (3.4-5.0); BUN/Creatinine Ratio 22.7; Calcium 8.7 mg/dL (8.5-10.1); Potassium 3.6 mmol/L (3.5-5.1)
[2017-07-23 00:12] LABS: Band Neutrophils % (manual) 1; Eosinophils % (manual) 2 (0-7); Lymphocytes % (manual) 35 (10.0-50.0); Metamyelocytes % 1; Monocytes % (manual) 9 (0-12)
[2017-07-23 00:14] LABS: Bilirubin, Total 0.6 mg/dL (0.2-1.0); Total Protein 6.9 g/dL (6.4-8.2)
[2017-07-23] MEDS ORDERED: ACETAMINOPHEN 500 MG TAB PO PRN (06:00)
[2017-07-23] MEDS: FUROSEMIDE 40 MG/4 ML VIAL IV SCH (06:23)
[2017-07-23 06:56] VITALS: BP 115/85
[2017-07-23] MEDS: CARVEDILOL 3.125 MG TAB PO SCH ×2 (10:00→22:16)
[2017-07-23 10:50] LABS: Urine Bacteria NONE SEEN /hpf (None Seen); Urine Blood Negative /uL (Negative); Urine Specific Gravity 1.008 (1.001-1.035); Urine WBC <1 /hpf (0 - 5)
[2017-07-23] MEDS: NITROGLYCERIN 0.4 MG SL TAB SL PRN (10:50)
[2017-07-23 11:00] LABS: BUN/Creatinine Ratio 21.6; Calcium 8.7 mg/dL (8.5-10.1); Potassium 4.1 mmol/L (3.5-5.1)
[2017-07-23 11:09] LABS: Alcohol, Urine < 3.0 mg/dL (0-5); Amphetamine Screen, Urine NEGATIVE (NEGATIVE); Barbiturate Scree,Urine NEGATIVE (NEGATIVE); Benzodiazephine Screen, Urine NEGATIVE (NEGATIVE); Cannabinoid Screen, Urine NEGATIVE (NEGATIVE); Cocaine Screen, Urine NEGATIVE (NEGATIVE); Opiate Scree,Urine NEGATIVE (NEGATIVE); Phencyclidine Screen, Urine NEGATIVE (NEGATIVE)
[2017-07-23 12:07] LABS: Basophils # (auto) 0.1 uL; Basophils % (auto) 1.2 % (0.0-2.0); Eosinophils # (auto) 0.3 uL; Eosinophils % (auto) 3.1 % (0.0-7.0); Hematocrit 47.5 % (36.0-46.0); Hemoglobin 15.8 g/dL (12.2-16.2); Lymphocytes % (auto) 30.8 % (10.0-50.0); Mean Corpuscular Hemoglobin 28.9 pg (28.0-32.0); Mean Corpuscular Hgb Conc. 33.3 g/dL (32.0-36.0); Mean Corpuscular Volume 86.8 fL (80.0-100.0); Monocytes # (auto) 1.1 uL; Monocytes % (auto) 11.6 % (0.0-12.0); Neutrophils # (auto) 5.2 uL; Neutrophils % (auto) 53.3 % (37.0-80.0); Nucleated Red Blood Cells % 0.7 %; Platelet Count (auto) 281 10^3/uL (140-450); Red Blood Cells 5.48 10^6/uL (4.0-5.20); Red Cell Distribution Width 15.7 % (11.8-14.3); White Blood Cell 9.7 10^3/uL (4.4-10.8)
[2017-07-23] MEDS ORDERED: CLOPIDOGREL BISULFATE 75 MG TAB PO ONE (12:30)
[2017-07-23] MEDS: ONDANSETRON HCL 4 MG/2 ML VIAL IV PRN ×2 (13:03→22:17)
[2017-07-23] MEDS: traMADol HCL 50 MG TAB PO PRN ×2 (13:04→22:17)
[2017-07-23] MEDS: ALPRAZolam 0.25 MG TAB PO PRN ×2 (13:04→23:26)
[2017-07-23] MEDS: IPRATROPIUM BROM 0.5 MG/2.5ML INH SOL NEB PRN (18:14)
[2017-07-23] MEDS: ALBUTEROL SULF 2.5 MG/0.5ML(0.5%) NEB SOLN NEB PRN (18:14)
[2017-07-23 21:27] VITALS: BP 115/79
[2017-07-23 22:00] VITALS: BP 115/79
[2017-07-23] MEDS: ATORVASTATIN 20 MG TAB PO SCH (22:16)
[2017-07-24] MEDS: ALBUTEROL SULF 2.5 MG/0.5ML(0.5%) NEB SOLN NEB PRN ×2 (00:50→08:20)
[2017-07-24] MEDS: IPRATROPIUM BROM 0.5 MG/2.5ML INH SOL NEB PRN ×2 (00:50→08:20)
[2017-07-24] MEDS: ONDANSETRON HCL 4 MG/2 ML VIAL IV PRN ×4 (04:51→20:12)
[2017-07-24] MEDS: traMADol HCL 50 MG TAB PO PRN ×4 (04:52→20:13)
[2017-07-24 05:47] VITALS: BP 109/63
[2017-07-24 05:59] LABS: Basophils # (auto) 0.1 uL; Basophils % (auto) 0.9 % (0.0-2.0); Eosinophils # (auto) 0.4 uL; Eosinophils % (auto) 3.8 % (0.0-7.0); Hematocrit 49.3 % (36.0-46.0); Hemoglobin 16.5 g/dL (12.2-16.2); Lymphocytes # (auto) 2.9 uL; Lymphocytes % (auto) 30.3 % (10.0-50.0); Mean Corpuscular Hemoglobin 29.3 pg (28.0-32.0); Mean Corpuscular Hgb Conc. 33.5 g/dL (32.0-36.0); Mean Corpuscular Volume 87.5 fL (80.0-100.0); Monocytes # (auto) 1.1 uL; Monocytes % (auto) 11.8 % (0.0-12.0); Neutrophils # (auto) 5.1 uL; Neutrophils % (auto) 53.2 % (37.0-80.0); Nucleated Red Blood Cells % 0.1 %; Platelet Count (auto) 276 10^3/uL (140-450); Red Blood Cells 5.64 10^6/uL (4.0-5.20); Red Cell Distribution Width 15.7 % (11.8-14.3); White Blood Cell 9.6 10^3/uL (4.4-10.8)
[2017-07-24 06:05] LABS: BUN/Creatinine Ratio 19.5; Calcium 8.7 mg/dL (8.5-10.1); Potassium 3.8 mmol/L (3.5-5.1)
[2017-07-24 08:28] VITALS: BP 111/70
[2017-07-24] MEDS: CARVEDILOL 3.125 MG TAB PO SCH ×2 (08:35→21:30)
[2017-07-24] MEDS: FUROSEMIDE 40 MG/4 ML VIAL IV SCH (08:35)
[2017-07-24] MEDS: NITROGLYCERIN 0.4 MG SL TAB SL PRN ×2 (11:25→11:30)
[2017-07-24 12:18] VITALS: BP 105/70
[2017-07-24] MEDS: ALPRAZolam 0.25 MG TAB PO PRN (14:02)
[2017-07-24 17:00] VITALS: BP 92/66
[2017-07-24] MEDS: ATORVASTATIN 20 MG TAB PO SCH (21:30)
[2017-07-24 22:00] VITALS: BP 94/57
[2017-07-25] MEDS: traMADol HCL 50 MG TAB PO PRN ×2 (02:02→08:26)
[2017-07-25] MEDS: ALPRAZolam 0.25 MG TAB PO PRN ×2 (02:02→14:06)
[2017-07-25] MEDS: ONDANSETRON HCL 4 MG/2 ML VIAL IV PRN ×4 (02:03→18:07)
[2017-07-25 05:00] VITALS: BP 100/66
[2017-07-25 05:52] LABS: Basophils # (auto) 0.1 uL; Eosinophils # (auto) 0.5 uL; Hematocrit 46.5 % (36.0-46.0); Hemoglobin 15.5 g/dL (12.2-16.2); Lymphocytes # (auto) 3.1 uL; Lymphocytes % (auto) 29.7 % (10.0-50.0); Mean Corpuscular Hemoglobin 29.2 pg (28.0-32.0); Mean Corpuscular Hgb Conc. 33.4 g/dL (32.0-36.0); Mean Corpuscular Volume 87.6 fL (80.0-100.0); Monocytes # (auto) 1.4 uL; Monocytes % (auto) 13.4 % (0.0-12.0); Neutrophils # (auto) 5.4 uL; Neutrophils % (auto) 50.9 % (37.0-80.0); Nucleated Red Blood Cells % 0.2 %; Platelet Count (auto) 258 10^3/uL (140-450); Red Blood Cells 5.32 10^6/uL (4.0-5.20); White Blood Cell 10.5 10^3/uL (4.4-10.8)
[2017-07-25 06:13] LABS: BUN/Creatinine Ratio 24.5; Calcium 8.9 mg/dL (8.5-10.1); Potassium 4.2 mmol/L (3.5-5.1)
[2017-07-25 09:00] VITALS: BP 102/77
[2017-07-25] MEDS: CARVEDILOL 3.125 MG TAB PO SCH ×3 (09:20→22:45)
[2017-07-25] MEDS: FUROSEMIDE 40 MG/4 ML VIAL IV SCH (09:20)
[2017-07-25] MEDS: IPRATROPIUM BROM 0.5 MG/2.5ML INH SOL NEB PRN ×2 (09:29→19:20)
[2017-07-25] MEDS: ALBUTEROL SULF 2.5 MG/0.5ML(0.5%) NEB SOLN NEB PRN ×2 (09:29→19:20)
[2017-07-25] MEDS: OXYCODONE W/ ACETAMINOPHEN 5/325MG TABLET PO PRN ×2 (11:53→18:07)
[2017-07-25 12:02] VITALS: BP 94/57
[2017-07-25 17:00] VITALS: BP 92/59
[2017-07-25 22:00] VITALS: BP 97/58
[2017-07-25] MEDS: ATORVASTATIN 20 MG TAB PO SCH (22:44)
[2017-07-25] MEDS ORDERED: TEMAZEPAM 15 MG CAP PO ONE (23:15)
[2017-07-26] VITALS (7 sets, daily range): BP systolic 98–118; BP diastolic 59–76
[2017-07-26] MEDS: OXYCODONE W/ ACETAMINOPHEN 5/325MG TABLET PO PRN ×4 (00:20→18:29)
[2017-07-26] MEDS: ONDANSETRON HCL 4 MG/2 ML VIAL IV PRN ×5 (00:21→21:11)
[2017-07-26] MEDS: ALPRAZolam 0.25 MG TAB PO PRN ×2 (05:11→23:09)
[2017-07-26] MEDS: ALBUTEROL SULF 2.5 MG/0.5ML(0.5%) NEB SOLN NEB PRN ×3 (05:40→20:31)
[2017-07-26] MEDS: IPRATROPIUM BROM 0.5 MG/2.5ML INH SOL NEB PRN ×3 (05:40→20:31)
[2017-07-26 06:31] LABS: Basophils # (auto) 0.1 uL; Basophils % (auto) 1.5 % (0.0-2.0); Eosinophils # (auto) 0.5 uL; Eosinophils % (auto) 6.7 % (0.0-7.0); Hematocrit 44.3 % (36.0-46.0); Hemoglobin 14.8 g/dL (12.2-16.2); Lymphocytes # (auto) 2.6 uL; Lymphocytes % (auto) 34.6 % (10.0-50.0); Mean Corpuscular Hemoglobin 29.2 pg (28.0-32.0); Mean Corpuscular Hgb Conc. 33.4 g/dL (32.0-36.0); Mean Corpuscular Volume 87.5 fL (80.0-100.0); Monocytes % (auto) 12.8 % (0.0-12.0); Neutrophils # (auto) 3.4 uL; Neutrophils % (auto) 44.4 % (37.0-80.0); Nucleated Red Blood Cells % 0.2 %; Platelet Count (auto) 233 10^3/uL (140-450); Red Blood Cells 5.07 10^6/uL (4.0-5.20); Red Cell Distribution Width 15.1 % (11.8-14.3); White Blood Cell 7.6 10^3/uL (4.4-10.8)
[2017-07-26 06:49] LABS: Calcium 8.5 mg/dL (8.5-10.1); Potassium 4.1 mmol/L (3.5-5.1)
[2017-07-26 06:53] LABS: BUN/Creatinine Ratio 27.5
[2017-07-26] MEDS ORDERED: PNEUMOCOCCAL VACC POLYS 25 MCG/0.5 ML VIAL IM ONE (08:15)
[2017-07-26] MEDS: CARVEDILOL 3.125 MG TAB PO SCH ×2 (10:56→23:09)
[2017-07-26] MEDS: FUROSEMIDE 40 MG/4 ML VIAL IV SCH (10:57)
[2017-07-26] MEDS: traMADol HCL 50 MG TAB PO PRN ×2 (10:58→20:06)
[2017-07-26] MEDS ORDERED: D5W/SOD CHL 0.45% 1,000 ML IV ONE (12:00)
[2017-07-26] MEDS ORDERED: fentaNYL CITRATE 100 MCG/2 ML VL ONE (14:01)
[2017-07-26] MEDS ORDERED: MIDAZOLAM HCL 1MG/1ML-2 ML VIAL ONE (14:01)
[2017-07-26] MEDS ORDERED: ANGIOMAX 250 MG VIAL IV ONE (14:06)
[2017-07-26] MEDS ORDERED: SODIUM CHL 0.9% 50 ML ONE (14:06)
[2017-07-26] MEDS ORDERED: IODIXANOL 320MG/ML 100ML BTL IV ONE (14:21)
[2017-07-26] MEDS ORDERED: KETOROLAC TROMETH 30 MG/ML 1ML VIAL ONE (15:19)
[2017-07-26] MEDS: KETOROLAC TROMETH 30 MG/ML 1ML VIAL IV PRN (21:12)
[2017-07-26] MEDS: ATORVASTATIN 20 MG TAB PO SCH (23:09)
[2017-07-27] MEDS: OXYCODONE W/ ACETAMINOPHEN 5/325MG TABLET PO PRN ×2 (00:25→08:45)
[2017-07-27] MEDS: ALBUTEROL SULF 2.5 MG/0.5ML(0.5%) NEB SOLN NEB PRN (01:17)
[2017-07-27] MEDS: IPRATROPIUM BROM 0.5 MG/2.5ML INH SOL NEB PRN (01:18)
[2017-07-27] MEDS: ONDANSETRON HCL 4 MG/2 ML VIAL IV PRN (02:21)
[2017-07-27] MEDS: KETOROLAC TROMETH 30 MG/ML 1ML VIAL IV PRN (02:21)
[2017-07-27 04:30] VITALS: BP 96/56
[2017-07-27] MEDS: traMADol HCL 50 MG TAB PO PRN (04:50)
[2017-07-27 05:45] LABS: Basophils # (auto) 0.1 uL; Basophils % (auto) 0.6 % (0.0-2.0); Eosinophils # (auto) 0.5 uL; Eosinophils % (auto) 5.3 % (0.0-7.0); Hematocrit 43.3 % (36.0-46.0); Hemoglobin 14.5 g/dL (12.2-16.2); Lymphocytes # (auto) 1.7 uL; Lymphocytes % (auto) 19.3 % (10.0-50.0); Mean Corpuscular Hemoglobin 29.3 pg (28.0-32.0); Mean Corpuscular Hgb Conc. 33.5 g/dL (32.0-36.0); Mean Corpuscular Volume 87.6 fL (80.0-100.0); Monocytes % (auto) 11.5 % (0.0-12.0); Neutrophils # (auto) 5.6 uL; Neutrophils % (auto) 63.3 % (37.0-80.0); Nucleated Red Blood Cells % 0.1 %; Platelet Count (auto) 224 10^3/uL (140-450); Red Blood Cells 4.94 10^6/uL (4.0-5.20); Red Cell Distribution Width 15.1 % (11.8-14.3); White Blood Cell 8.8 10^3/uL (4.4-10.8)
[2017-07-27 06:05] LABS: BUN/Creatinine Ratio 25.3; Calcium 8.6 mg/dL (8.5-10.1); Potassium 4.5 mmol/L (3.5-5.1)
[2017-07-27 08:10] VITALS: BP 96/56
[2017-07-27 08:25] VITALS: BP 111/59
[2017-07-27 09:00] VITALS: BP 108/66
[2017-07-27] MEDS: CARVEDILOL 3.125 MG TAB PO SCH (09:57)
[2017-07-27] MEDS: FUROSEMIDE 40 MG/4 ML VIAL IV SCH (09:58)
== END 2017-07-27 14:05 | disposition home or self-care (01) | DRG 286 ==
LOC: ER 21:21 → EDBD 21:21 → TELE 21:22 → TELE-CENTR 07-23 21:29
PROVIDERS: ADMIT Nurse Practitioner Family; ATTEND Internal Medicine
PROC: 4A023N7 Measurement of Cardiac Sampling and Pressure, Left Heart, Percutaneous Approach (ICD-10-PCS; principal; 2017-07-26)
PROC: B2111ZZ Fluoroscopy of Multiple Coronary Arteries using Low Osmolar Contrast (ICD-10-PCS; 2017-07-26)
PROC: B2181ZZ Fluoroscopy of Left Internal Mammary Bypass Graft using Low Osmolar Contrast (ICD-10-PCS; 2017-07-26)
PROC: B2131ZZ Fluoroscopy of Multiple Coronary Artery Bypass Grafts using Low Osmolar Contrast (ICD-10-PCS; 2017-07-26)
PROC: B2151ZZ Fluoroscopy of Left Heart using Low Osmolar Contrast (ICD-10-PCS; 2017-07-26)
DX: T82.858A Stenosis of other vascular prosthetic devices, implants and grafts, initial encounter (principal); I50.33 Acute on chronic diastolic (congestive) heart failure; N17.9 Acute kidney failure, unspecified; J96.11 Chronic respiratory failure with hypoxia; I25.82 Chronic total occlusion of coronary artery; I13.0 Hypertensive heart and chronic kidney disease with heart failure and stage 1 through stage 4 chronic kidney disease, or unspecified chronic kidney disease; T82.855A Stenosis of coronary artery stent, initial encounter; E11.22 Type 2 diabetes mellitus with diabetic chronic kidney disease; N18.3 Chronic kidney disease, stage 3 (moderate); D72.829 Elevated white blood cell count, unspecified; E78.5 Hyperlipidemia, unspecified; I25.10 Atherosclerotic heart disease of native coronary artery without angina pectoris; Y83.8 Other surgical procedures as the cause of abnormal reaction of the patient, or of later complication, without mention of misadventure at the time of the procedure; I25.5 Ischemic cardiomyopathy; I48.91 Unspecified atrial fibrillation; F41.9 Anxiety disorder, unspecified; J44.9 Chronic obstructive pulmonary disease, unspecified; Z82.49 Family history of ischemic heart disease and other diseases of the circulatory system; Z83.3 Family history of diabetes mellitus; Z90.710 Acquired absence of both cervix and uterus; Z91.14 Patient's other noncompliance with medication regimen; Z91.19 Patient's noncompliance with other medical treatment and regimen; Z95.1 Presence of aortocoronary bypass graft; T82.868A Thrombosis due to vascular prosthetic devices, implants and grafts, initial encounter; Z95.810 Presence of automatic (implantable) cardiac defibrillator; Z99.81 Dependence on supplemental oxygen; Z88.5 Allergy status to narcotic agent; Z79.899 Other long term (current) drug therapy; Z90.49 Acquired absence of other specified parts of digestive tract; Z87.891 Personal history of nicotine dependence; Y92.89 Other specified places as the place of occurrence of the external cause; Z71.89 Other specified counseling; Z71.3 Dietary counseling and surveillance; Y83.9 Surgical procedure, unspecified as the cause of abnormal reaction of the patient, or of later complication, without mention of misadventure at the time of the procedure
CPT/HCPCS: 36415; 71045; 76700; 80048; 80053; 80307; 81001; 83880; 84443; 84484; 85007; 85025; 85027; 85379; 85610; 85730; 87081; 93005; 93459; 94640; 96372; 96374; 96375; 99152; 99153; J1885; J2250; J2405; Q9967

== ENCOUNTER 2017-07-30 16:18 | Inpatient (IN) | payer MEDICARE ==
[~2017-07-30] VITALS: Ht 162.6 cm; Wt 63.6 kg
[2017-07-30] MEDS ORDERED: SODIUM CHLORIDE 0.9% 1,000 ML IV ONE (16:21)
[2017-07-30] MEDS ORDERED: HYDROmorphone HCL 2 MG/ML VL IV ONE (16:30)
[2017-07-30] MEDS ORDERED: ONDANSETRON HCL 4 MG/2 ML VIAL IV ONE (16:30)
[2017-07-30 16:52] LABS: Basophils # (auto) 0.1 uL; Basophils % (auto) 0.6 % (0.0-2.0); Eosinophils # (auto) 0.4 uL; Eosinophils % (auto) 4.3 % (0.0-7.0); Hematocrit 44.6 % (36.0-46.0); Hemoglobin 14.6 g/dL (12.2-16.2); Lymphocytes # (auto) 2.3 uL; Lymphocytes % (auto) 25.3 % (10.0-50.0); Mean Corpuscular Hemoglobin 28.8 pg (28.0-32.0); Mean Corpuscular Hgb Conc. 32.7 g/dL (32.0-36.0); Mean Corpuscular Volume 88.2 fL (80.0-100.0); Monocytes # (auto) 0.9 uL; Monocytes % (auto) 10.2 % (0.0-12.0); Neutrophils # (auto) 5.4 uL; Neutrophils % (auto) 59.6 % (37.0-80.0); Nucleated Red Blood Cells % 0.1 %; Platelet Count (auto) 291 10^3/uL (140-450); Red Blood Cells 5.05 10^6/uL (4.0-5.20); Red Cell Distribution Width 15.9 % (11.8-14.3)
[2017-07-30] MEDS ORDERED: NALBUPHINE HCL 10 MG/1ml INJECTION IV ONE (17:00)
[2017-07-30 17:05] LABS: Albumin 3.1 g/dL (3.4-5.0); BUN/Creatinine Ratio 21.9; Calcium 8.7 mg/dL (8.5-10.1); Magnesium 2.3 mg/dL (1.6-2.6); Potassium 5.1 mmol/L (3.5-5.1)
[2017-07-30 17:08] LABS: INR 0.94 (0.9-1.15); Partial Thromboplastin Time 27.5 sec (22.64-33.71); Prothrombin Time 10.2 sec (9.37-12.3)
[2017-07-30 17:10] LABS: Bilirubin, Total 0.6 mg/dL (0.2-1.0); Total Protein 6.5 g/dL (6.4-8.2)
[2017-07-30] MEDS ORDERED: ALPRAZolam 0.25 MG TAB PO PRN (19:15)
[2017-07-30] MEDS ORDERED: ALUM & MAG HYDROX-SIMETH LIQ(MAALOX) 30 ML PO ONE (19:30)
[2017-07-30] MEDS ORDERED: NITROGLYCERIN 0.4 MG SL TAB SL PRN (19:30)
[2017-07-30] MEDS ORDERED: DIGOXIN 0.125 MG TAB PO ONE (19:30)
[2017-07-30] MEDS ORDERED: ZOLPIDEM TARTRATE 5 MG TAB PO PRN (19:30)
[2017-07-30] MEDS ORDERED: FUROSEMIDE 40 MG TAB PO ONE (19:30)
[2017-07-30] MEDS ORDERED: ACETAMINOPHEN 325 MG TAB PO PRN (19:30)
[2017-07-30] MEDS: DOCUSATE SOD 100 MG CAP PO SCH (19:47)
[2017-07-30] MEDS: ASPirin 81 mg TAB PO SCH (19:47)
[2017-07-30] MEDS: HYDROmorphone HCL 2 MG TAB PO PRN (19:48)
[2017-07-30] MEDS: ONDANSETRON HCL 4 MG/2 ML VIAL IV PRN (19:48)
[2017-07-30 21:01] LABS: Urine Bacteria FEW /hpf (None Seen); Urine Blood Negative /uL (Negative); Urine Hyaline Cast FEW /lpf (0 - 2); Urine Specific Gravity 1.009 (1.001-1.035); Urine WBC <1 /hpf (0 - 5)
[2017-07-30] MEDS: CARVEDILOL 3.125 MG TAB PO SCH (21:38)
[2017-07-30] MEDS: SODIUM CHLOR 0.9% PF (SALINE LOCK) 10ML VIAL IV SCH (21:38)
[2017-07-30] MEDS: ATORVASTATIN 20 MG TAB PO SCH (21:39)
[2017-07-30] MEDS: ENOXAPARIN SOD 60 MG/0.6 ML SYRINGE SC SCH (21:39)
[2017-07-30] MEDS: ENALAPRIL MALEATE 2.5 MG TAB PO SCH (21:39)
[2017-07-30] MEDS: MEXILETINE HYDROCHLORIDE 150 MG CAP PO SCH (21:39)
[2017-07-30] MEDS: RANOLAZINE ER 500 MG TAB PO SCH (21:39)
[2017-07-30 22:45] VITALS: BP 137/95
[2017-07-31] VITALS (7 sets, daily range): BP systolic 78–110; BP diastolic 47–72
[2017-07-31] MEDS: ALBUTEROL SULF 2.5 MG/0.5ML(0.5%) NEB SOLN NEB SCH ×4 (00:05→23:54)
[2017-07-31] MEDS: ONDANSETRON HCL 4 MG/2 ML VIAL IV PRN ×6 (04:20→22:38)
[2017-07-31] MEDS: HYDROmorphone HCL 2 MG TAB PO PRN ×6 (04:20→22:38)
[2017-07-31 05:13] LABS: Basophils # (auto) 0 uL; Basophils % (auto) 0.3 % (0.0-2.0); Eosinophils # (auto) 0.4 uL; Eosinophils % (auto) 5.2 % (0.0-7.0); Hemoglobin 15.7 g/dL (12.2-16.2); Lymphocytes # (auto) 2.6 uL; Lymphocytes % (auto) 32.4 % (10.0-50.0); Mean Corpuscular Hemoglobin 29.6 pg (28.0-32.0); Mean Corpuscular Hgb Conc. 33.4 g/dL (32.0-36.0); Mean Corpuscular Volume 88.5 fL (80.0-100.0); Monocytes # (auto) 0.8 uL; Monocytes % (auto) 10.3 % (0.0-12.0); Neutrophils # (auto) 4.1 uL; Neutrophils % (auto) 51.8 % (37.0-80.0); Nucleated Red Blood Cells % 0.1 %; Platelet Count (auto) 257 10^3/uL (140-450); Red Blood Cells 5.31 10^6/uL (4.0-5.20); Red Cell Distribution Width 16.2 % (11.8-14.3)
[2017-07-31 05:31] LABS: Albumin 3.4 g/dL (3.4-5.0); Bilirubin, Total 0.9 mg/dL (0.2-1.0); Calcium 9.1 mg/dL (8.5-10.1); Magnesium 2.3 mg/dL (1.6-2.6); Potassium 4.6 mmol/L (3.5-5.1); Total Protein 6.7 g/dL (6.4-8.2)
[2017-07-31] MEDS: SODIUM CHLOR 0.9% PF (SALINE LOCK) 10ML VIAL IV SCH ×3 (06:14→21:11)
[2017-07-31] MEDS: BOOST PLUS 8 ounce PO SCH ×3 (08:50→17:40)
[2017-07-31] MEDS: DOCUSATE SOD 100 MG CAP PO SCH (10:00)
[2017-07-31] MEDS: ENALAPRIL MALEATE 2.5 MG TAB PO SCH ×2 (10:00→21:03)
[2017-07-31] MEDS ORDERED: POTASSIUM CHL 20 Meq TABLET PO SCH (10:00)
[2017-07-31] MEDS: CARVEDILOL 3.125 MG TAB PO SCH ×2 (10:00→21:02)
[2017-07-31] MEDS: FUROSEMIDE 40 MG TAB PO SCH (10:00)
[2017-07-31] MEDS ORDERED: SODIUM CHLORIDE 0.9 % NEB SOLN 3ML NEB ONE (11:26)
[2017-07-31] MEDS: NITROGLYCERIN 0.4 MG SL TAB SL PRN ×3 (12:00→12:15)
[2017-07-31] MEDS: ASPirin 81 mg TAB PO SCH (12:15)
[2017-07-31] MEDS ORDERED: HYDROmorphone HCL 2 MG/ML VL IV ONE (12:45)
[2017-07-31] MEDS ORDERED: ONDANSETRON HCL 4 MG/2 ML VIAL IV ONE (12:45)
[2017-07-31] MEDS: RANOLAZINE ER 500 MG TAB PO SCH ×2 (12:51→21:11)
[2017-07-31] MEDS: MEXILETINE HYDROCHLORIDE 150 MG CAP PO SCH ×2 (12:51→21:11)
[2017-07-31] MEDS: DIGOXIN 0.125 MG TAB PO SCH (12:51)
[2017-07-31] MEDS: ENOXAPARIN SOD 60 MG/0.6 ML SYRINGE SC SCH ×2 (12:57→21:11)
[2017-07-31] MEDS: ATORVASTATIN 20 MG TAB PO SCH (21:11)
[2017-08-01] VITALS: BP 116/75
[2017-08-01] MEDS: ONDANSETRON HCL 4 MG/2 ML VIAL IV PRN ×2 (03:47→09:49)
[2017-08-01 04:00] VITALS: BP 110/65
[2017-08-01] MEDS: HYDROmorphone HCL 2 MG TAB PO PRN ×2 (04:53→09:49)
[2017-08-01] MEDS: SODIUM CHLOR 0.9% PF (SALINE LOCK) 10ML VIAL IV SCH ×2 (05:12→14:00)
[2017-08-01] MEDS: ALBUTEROL SULF 2.5 MG/0.5ML(0.5%) NEB SOLN NEB SCH ×2 (06:26→13:08)
[2017-08-01 08:00] VITALS: BP 104/63
[2017-08-01] MEDS: BOOST PLUS 8 ounce PO SCH ×3 (08:00→18:11)
[2017-08-01] MEDS: ENOXAPARIN SOD 60 MG/0.6 ML SYRINGE SC SCH ×2 (08:05→09:57)
[2017-08-01] MEDS: FUROSEMIDE 40 MG TAB PO SCH (09:37)
[2017-08-01] MEDS: CARVEDILOL 3.125 MG TAB PO SCH (09:37)
[2017-08-01] MEDS: MEXILETINE HYDROCHLORIDE 150 MG CAP PO SCH (09:38)
[2017-08-01] MEDS: ENALAPRIL MALEATE 2.5 MG TAB PO SCH (09:39)
[2017-08-01] MEDS: DIGOXIN 0.125 MG TAB PO SCH (09:48)
[2017-08-01] MEDS: ASPirin 81 mg TAB PO SCH (09:49)
[2017-08-01] MEDS: DOCUSATE SOD 100 MG CAP PO SCH (09:49)
[2017-08-01] MEDS: RANOLAZINE ER 500 MG TAB PO SCH (09:54)
[2017-08-01 11:51] VITALS: BP 117/74
[2017-08-01 16:00] VITALS: BP 113/90
[2017-08-01 18:45] VITALS: BP 117/74
== END 2017-08-01 18:43 | disposition home or self-care (01) | DRG 280 ==
LOC: EDBD 16:18 → ER 16:18 → TELE 16:19 → DOU IN ICU 22:44
PROVIDERS: ADMIT Internal Medicine; ATTEND Family Medicine
DX: I21.4 Non-ST elevation (NSTEMI) myocardial infarction (principal); I50.33 Acute on chronic diastolic (congestive) heart failure; E44.0 Moderate protein-calorie malnutrition; D68.69 Other thrombophilia; I48.91 Unspecified atrial fibrillation; N18.3 Chronic kidney disease, stage 3 (moderate); J44.1 Chronic obstructive pulmonary disease with (acute) exacerbation; I48.92 Unspecified atrial flutter; J98.4 Other disorders of lung; I13.0 Hypertensive heart and chronic kidney disease with heart failure and stage 1 through stage 4 chronic kidney disease, or unspecified chronic kidney disease; J98.11 Atelectasis; E78.5 Hyperlipidemia, unspecified; I70.0 Atherosclerosis of aorta; I24.9 Acute ischemic heart disease, unspecified; M79.602 Pain in left arm; I25.119 Atherosclerotic heart disease of native coronary artery with unspecified angina pectoris; I70.8 Atherosclerosis of other arteries; I25.2 Old myocardial infarction; Z68.24 Body mass index [BMI] 24.0-24.9, adult; Z90.710 Acquired absence of both cervix and uterus; Z95.1 Presence of aortocoronary bypass graft; Z95.5 Presence of coronary angioplasty implant and graft; Z88.5 Allergy status to narcotic agent; Z95.0 Presence of cardiac pacemaker; Z72.89 Other problems related to lifestyle
CPT/HCPCS: 36415; 71045; 80053; 80061; 81001; 83735; 83880; 84484; 85025; 85610; 85730; 87081; 94640; 96374; 96375; 99291; J2405

== ENCOUNTER 2017-08-17 14:35 | Inpatient (IN) | payer MEDICARE ==
[~2017-08-17] VITALS: Ht 162.6 cm; Wt 66.0 kg
[~2017-08-17 14:35] MED LIST changes: -CLOP75TA28 PO; -DIG0125T PO; -[UNRECOGNIZED DRUG - CODE] PO
[2017-08-17 15:06] LABS: Basophils # (auto) 0.1 uL; Basophils % (auto) 1.3 % (0.0-2.0); Eosinophils # (auto) 0.2 uL; Eosinophils % (auto) 2.2 % (0.0-7.0); Hematocrit 47.2 % (36.0-46.0); Hemoglobin 15.9 g/dL (12.2-16.2); Lymphocytes # (auto) 2.5 uL; Lymphocytes % (auto) 30.1 % (10.0-50.0); Mean Corpuscular Hemoglobin 29.3 pg (28.0-32.0); Mean Corpuscular Hgb Conc. 33.6 g/dL (32.0-36.0); Mean Corpuscular Volume 87.2 fL (80.0-100.0); Monocytes % (auto) 12.3 % (0.0-12.0); Neutrophils # (auto) 4.4 uL; Neutrophils % (auto) 54.1 % (37.0-80.0); Nucleated Red Blood Cells % 0.3 %; Platelet Count (auto) 282 10^3/uL (140-450); Red Blood Cells 5.42 10^6/uL (4.0-5.20); Red Cell Distribution Width 16.5 % (11.8-14.3); White Blood Cell 8.2 10^3/uL (4.4-10.8)
[2017-08-17 15:24] LABS: BUN/Creatinine Ratio 18.8; Bilirubin, Total 0.5 mg/dL (0.2-1.0); Magnesium 2.6 mg/dL (1.6-2.6); Potassium 3.9 mmol/L (3.5-5.1); Total Protein 7.1 g/dL (6.4-8.2)
[2017-08-17] MEDS ORDERED: ENTRESTO (15:50)
[2017-08-17] MEDS ORDERED: HYDR-4069 (15:50)
[2017-08-17] MEDS ORDERED: CLOP75TA41 (15:50)
[2017-08-17] MEDS ORDERED: RANI-226 (15:50)
[2017-08-17] MEDS ORDERED: MEPERIDINE HCL (25 MG/ML) 1ML VIAL IV ONE ×2 (16:30→18:45)
[2017-08-17] MEDS ORDERED: ONDANSETRON HCL 4 MG/2 ML VIAL IV ONE ×2 (16:30→19:15)
[2017-08-17] MEDS ORDERED: ACETAMINOPHEN 500 MG TAB PO PRN (22:00)
[2017-08-17] MEDS ORDERED: HYDROcodone-ACET 5/325MG TAB PO PRN (22:00)
[2017-08-17] MEDS ORDERED: NITROGLYCERIN 0.4 MG SL TAB SL PRN (22:00)
[2017-08-17] MEDS: CARVEDILOL 3.125 MG TAB PO SCH (22:11)
[2017-08-17] MEDS: ATORVASTATIN 20 MG TAB PO SCH (22:11)
[2017-08-17 22:13] LABS: Alcohol, Urine < 3.0 mg/dL (0-5); Amphetamine Screen, Urine NEGATIVE (NEGATIVE); Barbiturate Scree,Urine NEGATIVE (NEGATIVE); Benzodiazephine Screen, Urine NEGATIVE (NEGATIVE); Cannabinoid Screen, Urine NEGATIVE (NEGATIVE); Cocaine Screen, Urine NEGATIVE (NEGATIVE); Opiate Scree,Urine NEGATIVE (NEGATIVE); Phencyclidine Screen, Urine NEGATIVE (NEGATIVE)
[2017-08-17 22:15] LABS: Urine Bacteria FEW /hpf (None Seen); Urine Blood Negative /uL (Negative); Urine Mucus FEW (None Seen); Urine Specific Gravity 1.027 (1.001-1.035); Urine WBC <1 /hpf (0 - 5)
[2017-08-17 23:00] VITALS: BP 150/93
[2017-08-18] MEDS: ONDANSETRON HCL 4 MG/2 ML VIAL IV PRN ×4 (00:50→21:52)
[2017-08-18] MEDS: MEPERIDINE HCL (25 MG/ML) 1ML VIAL IV PRN ×6 (00:51→21:53)
[2017-08-18] MEDS: ALPRAZolam 0.25 MG TAB PO PRN (02:54)
[2017-08-18 04:43] VITALS: BP 133/79
[2017-08-18 05:30] VITALS: BP 100/60
[2017-08-18 05:55] LABS: Basophils # (auto) 0.1 uL; Basophils % (auto) 0.7 % (0.0-2.0); Eosinophils # (auto) 0.2 uL; Eosinophils % (auto) 2.9 % (0.0-7.0); Hematocrit 42.3 % (36.0-46.0); Hemoglobin 14.1 g/dL (12.2-16.2); Lymphocytes # (auto) 2.2 uL; Lymphocytes % (auto) 30.3 % (10.0-50.0); Mean Corpuscular Hemoglobin 29.1 pg (28.0-32.0); Mean Corpuscular Hgb Conc. 33.4 g/dL (32.0-36.0); Mean Corpuscular Volume 87.3 fL (80.0-100.0); Monocytes # (auto) 0.9 uL; Monocytes % (auto) 13.3 % (0.0-12.0); Neutrophils # (auto) 3.8 uL; Neutrophils % (auto) 52.8 % (37.0-80.0); Nucleated Red Blood Cells % 0.4 %; Platelet Count (auto) 260 10^3/uL (140-450); Red Blood Cells 4.85 10^6/uL (4.0-5.20); Red Cell Distribution Width 16.5 % (11.8-14.3); White Blood Cell 7.2 10^3/uL (4.4-10.8)
[2017-08-18 05:56] LABS: BUN/Creatinine Ratio 20.9; Calcium 8.5 mg/dL (8.5-10.1); Potassium 4.1 mmol/L (3.5-5.1)
[2017-08-18] MEDS: CARVEDILOL 3.125 MG TAB PO SCH ×2 (08:10→21:52)
[2017-08-18] MEDS: CLOPIDOGREL BISULFATE 75 MG TAB PO SCH (08:10)
[2017-08-18] MEDS: FUROSEMIDE 40 MG/4 ML VIAL IV SCH (08:11)
[2017-08-18 09:00] VITALS: BP 102/62
[2017-08-18] MEDS ORDERED: FUROSEMIDE 40 MG/4 ML VIAL IV SCH (10:00)
[2017-08-18] MEDS: ALBUTEROL SULF 2.5 MG/0.5ML(0.5%) NEB SOLN NEB PRN (10:49)
[2017-08-18 13:00] VITALS: BP 106/54
[2017-08-18 17:00] VITALS: BP 134/79
[2017-08-18] MEDS: ASCORBIC ACID 500 MG TAB PO SCH (18:47)
[2017-08-18] MEDS: MULTIPLE VITAMINS W/ MINERALS TAB PO SCH (18:47)
[2017-08-18] MEDS: ATORVASTATIN 20 MG TAB PO SCH (21:52)
[2017-08-18 22:51] VITALS: BP 118/72
[2017-08-18] MEDS: TEMAZEPAM 15 MG CAP PO PRN (22:55)
[2017-08-19] MEDS: MEPERIDINE HCL (25 MG/ML) 1ML VIAL IV PRN ×5 (01:55→20:28)
[2017-08-19] MEDS: ALBUTEROL SULF 2.5 MG/0.5ML(0.5%) NEB SOLN NEB PRN ×3 (03:50→19:32)
[2017-08-19 05:09] VITALS: BP 102/69
[2017-08-19] MEDS: ONDANSETRON HCL 4 MG/2 ML VIAL IV PRN ×3 (06:03→22:35)
[2017-08-19 09:00] VITALS: BP 107/72
[2017-08-19] MEDS: ASCORBIC ACID 500 MG TAB PO SCH (10:32)
[2017-08-19] MEDS: MULTIPLE VITAMINS W/ MINERALS TAB PO SCH (10:32)
[2017-08-19] MEDS: CLOPIDOGREL BISULFATE 75 MG TAB PO SCH (10:32)
[2017-08-19] MEDS: FUROSEMIDE 40 MG/4 ML VIAL IV SCH (10:32)
[2017-08-19] MEDS: CARVEDILOL 3.125 MG TAB PO SCH ×2 (10:32→22:36)
[2017-08-19 13:00] VITALS: BP 136/69
[2017-08-19 17:00] VITALS: BP 114/61
[2017-08-19] MEDS: ALPRAZolam 0.25 MG TAB PO PRN (17:43)
[2017-08-19 22:00] VITALS: BP 102/58
[2017-08-19] MEDS: ATORVASTATIN 20 MG TAB PO SCH (22:36)
[2017-08-20] MEDS: TEMAZEPAM 15 MG CAP PO PRN
[2017-08-20] MEDS: MEPERIDINE HCL (25 MG/ML) 1ML VIAL IV PRN ×3 (01:05→10:39)
[2017-08-20] MEDS: ALBUTEROL SULF 2.5 MG/0.5ML(0.5%) NEB SOLN NEB PRN ×3 (01:06→11:34)
[2017-08-20 05:00] VITALS: BP 109/63
[2017-08-20 08:00] VITALS: BP 108/62
[2017-08-20 08:18] VITALS: BP 108/62
[2017-08-20] MEDS: ONDANSETRON HCL 4 MG/2 ML VIAL IV PRN (09:01)
[2017-08-20] MEDS: FUROSEMIDE 40 MG/4 ML VIAL IV SCH (09:01)
[2017-08-20] MEDS: ALPRAZolam 0.25 MG TAB PO PRN (09:02)
[2017-08-20] MEDS: CLOPIDOGREL BISULFATE 75 MG TAB PO SCH (09:02)
[2017-08-20] MEDS: ASCORBIC ACID 500 MG TAB PO SCH (09:02)
[2017-08-20] MEDS: MULTIPLE VITAMINS W/ MINERALS TAB PO SCH (09:02)
[2017-08-20] MEDS: CARVEDILOL 3.125 MG TAB PO SCH (09:03)
[2017-08-20 12:59] VITALS: BP 124/65
[2017-08-20 13:41] VITALS: BP 124/65
== END 2017-08-20 15:50 | disposition home or self-care (01) | DRG 291 ==
LOC: EDBD 14:35 → ER 14:35 → TELE 14:36 → TELE-WESTW 23:32
PROVIDERS: ADMIT Nurse Practitioner Family; ATTEND Family Medicine
DX: I13.0 Hypertensive heart and chronic kidney disease with heart failure and stage 1 through stage 4 chronic kidney disease, or unspecified chronic kidney disease (principal); I50.43 Acute on chronic combined systolic (congestive) and diastolic (congestive) heart failure; E11.22 Type 2 diabetes mellitus with diabetic chronic kidney disease; E11.9 Type 2 diabetes mellitus without complications; J44.9 Chronic obstructive pulmonary disease, unspecified; I25.5 Ischemic cardiomyopathy; I25.10 Atherosclerotic heart disease of native coronary artery without angina pectoris; Z95.5 Presence of coronary angioplasty implant and graft; E78.00 Pure hypercholesterolemia, unspecified; E78.5 Hyperlipidemia, unspecified; F41.9 Anxiety disorder, unspecified; I25.2 Old myocardial infarction; Z82.49 Family history of ischemic heart disease and other diseases of the circulatory system; Z90.710 Acquired absence of both cervix and uterus; Z95.810 Presence of automatic (implantable) cardiac defibrillator; Z88.5 Allergy status to narcotic agent; Z79.899 Other long term (current) drug therapy; Z90.49 Acquired absence of other specified parts of digestive tract; Z90.89 Acquired absence of other organs; N18.3 Chronic kidney disease, stage 3 (moderate)
CPT/HCPCS: 36415; 71045; 80048; 80053; 80307; 81001; 83735; 83880; 84484; 85025; 87081; 93005; 94640; 94761; 96374; 96375; 96376; J2405

== ENCOUNTER 2017-09-18 16:50 | Emergency (ER) | payer MEDICARE ==
[~2017-09-18] VITALS: Ht 162.6 cm; Wt 74.8 kg
[~2017-09-18 16:50] MED LIST changes: +ASP81EC PO; +CLOP75TA41; +ENTRESTO; -FURO40TA PO; +HYDR-4069; -MUPI2OIN10 EACHNOSTRI; +RANI-226
[2017-09-18 18:45] LABS: Hematocrit 44.4 % (36.0-46.0); Hemoglobin 14.8 g/dL (12.2-16.2); Mean Corpuscular Hemoglobin 28.8 pg (28.0-32.0); Mean Corpuscular Hgb Conc. 33.3 g/dL (32.0-36.0); Mean Corpuscular Volume 86.4 fL (80.0-100.0); Platelet Count (auto) 398 10^3/uL (140-450); Red Blood Cells 5.14 10^6/uL (4.0-5.20); Red Cell Distribution Width 16.9 % (11.8-14.3); White Blood Cell 9.1 10^3/uL (4.4-10.8)
[2017-09-18 18:52] LABS: Albumin 3.4 g/dL (3.4-5.0); BUN/Creatinine Ratio 14.2; Bilirubin, Total 0.5 mg/dL (0.2-1.0); Calcium 8.5 mg/dL (8.5-10.1); Magnesium 2.3 mg/dL (1.6-2.6); Potassium 3.5 mmol/L (3.5-5.1); Total Protein 6.5 g/dL (6.4-8.2)
[2017-09-18 18:53] LABS: Band Neutrophils % (manual) 0; Basophils % (manual) 0 (0.0-2.0); Blast Cells 0; Metamyelocytes % 0; Myelocytes % 0; Promyelocytes % 0; Reactive Lymphocytes 0
[2017-09-18 20:17] LABS: Eosinophils % (manual) 4 (0-7); Lymphocytes % (manual) 32 (10.0-50.0); Monocytes % (manual) 10 (0-12)
[2017-09-18 22:06] VITALS: BP 124/84
== END 2017-09-19 00:02 | disposition left against medical advice (07) ==
LOC: EDBD 16:50 → ER 16:53
DX: R53.1 Weakness (principal); Z53.21 Procedure and treatment not carried out due to patient leaving prior to being seen by health care provider
CPT/HCPCS: 36415; 71046; 80053; 83735; 84484; 85007; 85027; 93005

== ENCOUNTER 2017-09-24 18:05 | Inpatient (IN) | payer MEDICARE ==
[~2017-09-24] VITALS: Ht 162.6 cm; Wt 65.0 kg
[2017-09-24 19:29] LABS: Basophils # (auto) 0.1 uL; Basophils % (auto) 0.7 % (0.0-2.0); Eosinophils # (auto) 0.6 uL; Eosinophils % (auto) 3.3 % (0.0-7.0); Hematocrit 41.7 % (36.0-46.0); Lymphocytes # (auto) 1.8 uL; Lymphocytes % (auto) 10.3 % (10.0-50.0); Mean Corpuscular Hemoglobin 29.4 pg (28.0-32.0); Mean Corpuscular Hgb Conc. 33.7 g/dL (32.0-36.0); Mean Corpuscular Volume 87.3 fL (80.0-100.0); Monocytes # (auto) 1.5 uL; Monocytes % (auto) 8.6 % (0.0-12.0); Neutrophils # (auto) 13.4 uL; Neutrophils % (auto) 77.1 % (37.0-80.0); Nucleated Red Blood Cells % 0.1 %; Platelet Count (auto) 355 10^3/uL (140-450); Red Blood Cells 4.77 10^6/uL (4.0-5.20); Red Cell Distribution Width 17.5 % (11.8-14.3); White Blood Cell 17.3 10^3/uL (4.4-10.8)
[2017-09-24 19:53] LABS: Alanine Aminotransferase 17 U/L (13-56); Albumin 3.6 g/dL (3.4-5.0); Alkaline Phosphatase 83 U/L (45-117); Anion Gap 7 (5-15); Aspartate Aminotransferase 17 U/L (15-37); BUN/Creatinine Ratio 17.2; Bilirubin, Total 0.4 mg/dL (0.2-1.0); Blood Urea Nitrogen 20 mg/dL (7-18); Calcium 8.9 mg/dL (8.5-10.1); Carbon Dioxide 22 mmol/L (21-32); Chloride 113 mmol/L (98-107); GFR African American 59 mL/min; GFR Non-African American 49 mL/min; Glucose 102 mg/dL (74-106); Sodium 142 mmol/L (136-145); Total Protein 6.6 g/dL (6.4-8.2)
[2017-09-24] MEDS ORDERED: MORPHINE SULFATE 8mg/ml INJ SDV IV ONE ×2 (21:00→23:45)
[2017-09-24] MEDS ORDERED: ONDANSETRON HCL 4 MG/2 ML VIAL IV ONE ×2 (21:00→23:45)
[2017-09-24 21:23] LABS: Magnesium 2.2 mg/dL (1.6-2.6)
[2017-09-25] MEDS ORDERED: ACETAMINOPHEN 500 MG TAB PO PRN (00:30)
[2017-09-25] MEDS ORDERED: HYDROcodone-ACET 5/325MG TAB PO PRN (00:30)
[2017-09-25] MEDS: SODIUM CHLORIDE 0.9% 1,000 ML IV SCH ×2 (01:01→13:50)
[2017-09-25] MEDS: ONDANSETRON HCL 4 MG/2 ML VIAL IV PRN ×6 (02:40→23:40)
[2017-09-25] MEDS: MORPHINE SULFATE 8mg/ml INJ SDV IV PRN ×5 (03:52→23:30)
[2017-09-25 05:33] LABS: Basophils # (auto) 0.1 uL; Basophils % (auto) 0.6 % (0.0-2.0); Eosinophils # (auto) 0.7 uL; Eosinophils % (auto) 5.2 % (0.0-7.0); Hematocrit 39.4 % (36.0-46.0); Hemoglobin 13.2 g/dL (12.2-16.2); Lymphocytes # (auto) 1.9 uL; Lymphocytes % (auto) 14.7 % (10.0-50.0); Mean Corpuscular Hemoglobin 29.3 pg (28.0-32.0); Mean Corpuscular Hgb Conc. 33.4 g/dL (32.0-36.0); Mean Corpuscular Volume 87.5 fL (80.0-100.0); Neutrophils % (auto) 71.5 % (37.0-80.0); Nucleated Red Blood Cells % 0.1 %; Platelet Count (auto) 318 10^3/uL (140-450); Red Cell Distribution Width 16.9 % (11.8-14.3); White Blood Cell 12.6 10^3/uL (4.4-10.8)
[2017-09-25 05:59] LABS: BUN/Creatinine Ratio 17.6; Calcium 8.2 mg/dL (8.5-10.1); Potassium 3.7 mmol/L (3.5-5.1)
[2017-09-25] MEDS: metroNIDAZOLE 500MG/100ML 100 ML IV SCH ×3 (06:06→22:15)
[2017-09-25] MEDS: ALBUTEROL SULF 2.5 MG/0.5ML(0.5%) NEB SOLN NEB PRN (06:11)
[2017-09-25] MEDS ORDERED: cefTRIAXone 1GM/10ml IVPUSH 10 ML IV SCH (09:00)
[2017-09-25 09:39] VITALS: BP 113/63
[2017-09-25] MEDS: ASPirin-EC 81 mg tab PO SCH (09:39)
[2017-09-25 12:58] VITALS: BP 97/63
[2017-09-25 13:35] VITALS: BP 113/63
[2017-09-25 16:23] LABS: Urine Bacteria NONE SEEN /hpf (None Seen); Urine Blood Negative /uL (Negative); Urine Mucus FEW (None Seen); Urine Specific Gravity 1.021 (1.001-1.035); Urine WBC 11 /hpf (0 - 5)
[2017-09-25 17:17] VITALS: BP 111/59
[2017-09-25] MEDS: ATORVASTATIN 20 MG TAB PO SCH (22:15)
[2017-09-25] MEDS ORDERED: MORPHINE SULFATE 8mg/ml INJ SDV IV ONE (22:25)
[2017-09-25 22:27] VITALS: BP 112/69
[2017-09-26] MEDS: SODIUM CHLORIDE 0.9% 1,000 ML IV SCH ×2 (01:05→16:28)
[2017-09-26] MEDS: ALPRAZolam 0.25 MG TAB PO PRN (01:05)
[2017-09-26] MEDS: MORPHINE SULFATE 8mg/ml INJ SDV IV PRN ×5 (03:28→20:30)
[2017-09-26] MEDS: ONDANSETRON HCL 4 MG/2 ML VIAL IV PRN ×5 (03:29→20:30)
[2017-09-26 04:50] VITALS: BP 105/55
[2017-09-26 05:31] LABS: Hematocrit 36.5 % (36.0-46.0); Hemoglobin 12.3 g/dL (12.2-16.2); Mean Corpuscular Hemoglobin 29.9 pg (28.0-32.0); Mean Corpuscular Hgb Conc. 33.8 g/dL (32.0-36.0); Mean Corpuscular Volume 88.4 fL (80.0-100.0); Platelet Count (auto) 284 10^3/uL (140-450); Red Blood Cells 4.12 10^6/uL (4.0-5.20); Red Cell Distribution Width 17.3 % (11.8-14.3)
[2017-09-26] MEDS: metroNIDAZOLE 500MG/100ML 100 ML IV SCH ×3 (05:32→22:25)
[2017-09-26 05:34] LABS: Band Neutrophils % (manual) 0; Basophils % (manual) 0 (0.0-2.0); Blast Cells 0; Metamyelocytes % 0; Myelocytes % 0; Promyelocytes % 0; Reactive Lymphocytes 0
[2017-09-26 05:52] LABS: BUN/Creatinine Ratio 9.8; Calcium 7.9 mg/dL (8.5-10.1); Potassium 4.1 mmol/L (3.5-5.1)
[2017-09-26 06:41] LABS: Eosinophils % (manual) 15 (0-7); Lymphocytes % (manual) 8 (10.0-50.0); Monocytes % (manual) 6 (0-12)
[2017-09-26] MEDS: ALBUTEROL SULF 2.5 MG/0.5ML(0.5%) NEB SOLN NEB PRN (07:08)
[2017-09-26] MEDS: ASPirin-EC 81 mg tab PO SCH (10:15)
[2017-09-26 13:00] VITALS: BP 110/70
[2017-09-26 16:59] VITALS: BP 106/60
[2017-09-26 22:00] VITALS: BP 120/59
[2017-09-26] MEDS: ATORVASTATIN 20 MG TAB PO SCH (22:25)
[2017-09-27] MEDS: ALBUTEROL SULF 2.5 MG/0.5ML(0.5%) NEB SOLN NEB PRN ×2 (00:26→10:08)
[2017-09-27] MEDS: ONDANSETRON HCL 4 MG/2 ML VIAL IV PRN ×2 (00:30→04:33)
[2017-09-27] MEDS: MORPHINE SULFATE 8mg/ml INJ SDV IV PRN ×6 (00:30→21:43)
[2017-09-27] MEDS: ALPRAZolam 0.25 MG TAB PO PRN ×2 (00:50→23:58)
[2017-09-27 04:48] VITALS: BP 134/78
[2017-09-27] MEDS: SODIUM CHLORIDE 0.9% 1,000 ML IV SCH ×3 (05:41→19:30)
[2017-09-27] MEDS: metroNIDAZOLE 500MG/100ML 100 ML IV SCH ×3 (05:41→21:42)
[2017-09-27 07:12] LABS: Basophils # (auto) 0.1 uL; Basophils % (auto) 0.4 % (0.0-2.0); Hematocrit 37.9 % (36.0-46.0); Hemoglobin 12.6 g/dL (12.2-16.2); Lymphocytes # (auto) 1.6 uL; Lymphocytes % (auto) 12.1 % (10.0-50.0); Mean Corpuscular Hemoglobin 29.2 pg (28.0-32.0); Mean Corpuscular Hgb Conc. 33.1 g/dL (32.0-36.0); Mean Corpuscular Volume 88.3 fL (80.0-100.0); Monocytes # (auto) 1.2 uL; Monocytes % (auto) 9.1 % (0.0-12.0); Neutrophils # (auto) 8.2 uL; Neutrophils % (auto) 63.1 % (37.0-80.0); Nucleated Red Blood Cells % 0.3 %; Platelet Count (auto) 253 10^3/uL (140-450); Red Blood Cells 4.29 10^6/uL (4.0-5.20); Red Cell Distribution Width 17.6 % (11.8-14.3)
[2017-09-27 07:22] LABS: Eosinophils % (auto) 15.3 % (0.0-7.0)
[2017-09-27 07:25] LABS: BUN/Creatinine Ratio 10.2; Calcium 8.3 mg/dL (8.5-10.1); Potassium 4.1 mmol/L (3.5-5.1)
[2017-09-27 08:00] VITALS: BP 131/79
[2017-09-27 08:02] VITALS: BP 131/79
[2017-09-27] MEDS: ASPirin-EC 81 mg tab PO SCH (10:00)
[2017-09-27] MEDS: VANCOMYCIN HCL 125MG/5ML ORAL SOL PO SCH ×3 (12:18→23:58)
[2017-09-27] MEDS: ONDANSETRON ODT 4 MG TAB PO PRN ×3 (12:20→21:42)
[2017-09-27 12:22] VITALS: BP 113/62
[2017-09-27] MEDS: KETOROLAC TROMETH 30 MG/ML 1ML VIAL IV PRN (14:40)
[2017-09-27 16:18] VITALS: BP 137/75
[2017-09-27] MEDS: ATORVASTATIN 20 MG TAB PO SCH (21:42)
[2017-09-27 21:50] VITALS: BP 136/68
[2017-09-28] VITALS (7 sets, daily range): BP systolic 110–133; BP diastolic 59–76
[2017-09-28] MEDS: KETOROLAC TROMETH 30 MG/ML 1ML VIAL IV PRN ×3 (00:05→15:42)
[2017-09-28] MEDS: ONDANSETRON ODT 4 MG TAB PO PRN ×4 (01:54→21:58)
[2017-09-28] MEDS: MORPHINE SULFATE 8mg/ml INJ SDV IV PRN ×3 (01:54→10:00)
[2017-09-28] MEDS: metroNIDAZOLE 500MG/100ML 100 ML IV SCH ×3 (05:41→21:59)
[2017-09-28] MEDS: VANCOMYCIN HCL 125MG/5ML ORAL SOL PO SCH ×3 (05:42→18:21)
[2017-09-28] MEDS: SODIUM CHLORIDE 0.9% 1,000 ML IV SCH ×2 (05:43→15:16)
[2017-09-28 07:34] LABS: Calcium 8.2 mg/dL (8.5-10.1); Potassium 3.7 mmol/L (3.5-5.1)
[2017-09-28 07:59] LABS: Basophils # (auto) 0.1 uL; Basophils % (auto) 0.5 % (0.0-2.0); Eosinophils # (auto) 1.6 uL; Eosinophils % (auto) 12.9 % (0.0-7.0); Hematocrit 37.9 % (36.0-46.0); Hemoglobin 12.4 g/dL (12.2-16.2); Lymphocytes # (auto) 1.5 uL; Lymphocytes % (auto) 11.7 % (10.0-50.0); Mean Corpuscular Hemoglobin 28.9 pg (28.0-32.0); Mean Corpuscular Hgb Conc. 32.7 g/dL (32.0-36.0); Mean Corpuscular Volume 88.2 fL (80.0-100.0); Monocytes # (auto) 1.2 uL; Monocytes % (auto) 9.6 % (0.0-12.0); Neutrophils # (auto) 8.2 uL; Neutrophils % (auto) 65.3 % (37.0-80.0); Platelet Count (auto) 251 10^3/uL (140-450); Red Cell Distribution Width 17.8 % (11.8-14.3); White Blood Cell 12.6 10^3/uL (4.4-10.8)
[2017-09-28] MEDS: ASPirin-EC 81 mg tab PO SCH (09:59)
[2017-09-28] MEDS: MORPHINE SULFATE 4 MG/ML SYR/VIAL IV PRN ×3 (14:05→21:58)
[2017-09-28] MEDS: ALBUTEROL SULF 2.5 MG/0.5ML(0.5%) NEB SOLN NEB PRN (18:21)
[2017-09-28] MEDS: ATORVASTATIN 20 MG TAB PO SCH (21:58)
[2017-09-29] MEDS: VANCOMYCIN HCL 125MG/5ML ORAL SOL PO SCH ×4 (00:09→18:15)
[2017-09-29] MEDS: KETOROLAC TROMETH 30 MG/ML 1ML VIAL IV PRN (00:10)
[2017-09-29] MEDS: ONDANSETRON ODT 4 MG TAB PO PRN ×5 (01:55→21:11)
[2017-09-29] MEDS: SODIUM CHLORIDE 0.9% 1,000 ML IV SCH (01:55)
[2017-09-29] MEDS: MORPHINE SULFATE 4 MG/ML SYR/VIAL IV PRN ×7 (01:55→21:11)
[2017-09-29 05:00] VITALS: BP 139/83
[2017-09-29 05:37] LABS: Basophils # (auto) 0.1 uL; Basophils % (auto) 0.8 % (0.0-2.0); Eosinophils # (auto) 1.1 uL; Hematocrit 40.1 % (36.0-46.0); Hemoglobin 13.2 g/dL (12.2-16.2); Lymphocytes # (auto) 1.4 uL; Lymphocytes % (auto) 15.2 % (10.0-50.0); Mean Corpuscular Hemoglobin 29.2 pg (28.0-32.0); Mean Corpuscular Volume 88.3 fL (80.0-100.0); Monocytes # (auto) 0.8 uL; Monocytes % (auto) 9.1 % (0.0-12.0); Neutrophils # (auto) 5.7 uL; Neutrophils % (auto) 62.9 % (37.0-80.0); Nucleated Red Blood Cells % 0.1 %; Platelet Count (auto) 260 10^3/uL (140-450); Red Blood Cells 4.54 10^6/uL (4.0-5.20); Red Cell Distribution Width 17.4 % (11.8-14.3); White Blood Cell 9.1 10^3/uL (4.4-10.8)
[2017-09-29 05:55] LABS: Calcium 8.2 mg/dL (8.5-10.1)
[2017-09-29] MEDS: metroNIDAZOLE 500MG/100ML 100 ML IV SCH ×3 (05:55→21:11)
[2017-09-29] MEDS: ALBUTEROL SULF 2.5 MG/0.5ML(0.5%) NEB SOLN NEB PRN ×2 (05:56→18:37)
[2017-09-29 05:59] LABS: BUN/Creatinine Ratio 6.8
[2017-09-29 09:00] VITALS: BP 131/79
[2017-09-29] MEDS: D5W/SOD CHL 0.45% 1,000 ML IV SCH ×2 (09:03→17:15)
[2017-09-29] MEDS: ALPRAZolam 0.25 MG TAB PO PRN (09:03)
[2017-09-29] MEDS: ASPirin-EC 81 mg tab PO SCH (09:03)
[2017-09-29] MEDS ORDERED: GASTROGRAFIN 30 ML SOL ONE (09:58)
[2017-09-29 12:52] VITALS: BP 127/81
[2017-09-29 17:00] VITALS: BP 128/77
[2017-09-29] MEDS: ATORVASTATIN 20 MG TAB PO SCH (21:12)
[2017-09-29 21:49] VITALS: BP 138/77
[2017-09-30] MEDS: MORPHINE SULFATE 4 MG/ML SYR/VIAL IV PRN ×8 (00:08→21:24)
[2017-09-30] MEDS: ONDANSETRON ODT 4 MG TAB PO PRN ×4 (00:09→21:25)
[2017-09-30] MEDS: VANCOMYCIN HCL 125MG/5ML ORAL SOL PO SCH ×4 (00:09→18:06)
[2017-09-30] MEDS: ALBUTEROL SULF 2.5 MG/0.5ML(0.5%) NEB SOLN NEB PRN ×2 (01:48→06:15)
[2017-09-30] MEDS: D5W/SOD CHL 0.45% 1,000 ML IV SCH ×2 (03:15→13:29)
[2017-09-30 05:00] VITALS: BP 123/79
[2017-09-30 06:04] LABS: Basophils # (auto) 0.1 uL; Basophils % (auto) 0.9 % (0.0-2.0); Eosinophils # (auto) 0.8 uL; Eosinophils % (auto) 12.5 % (0.0-7.0); Hemoglobin 11.6 g/dL (12.2-16.2); Lymphocytes # (auto) 1.4 uL; Lymphocytes % (auto) 21.3 % (10.0-50.0); Mean Corpuscular Hemoglobin 29.7 pg (28.0-32.0); Mean Corpuscular Hgb Conc. 34.1 g/dL (32.0-36.0); Mean Corpuscular Volume 87.2 fL (80.0-100.0); Monocytes # (auto) 0.9 uL; Monocytes % (auto) 14.4 % (0.0-12.0); Neutrophils # (auto) 3.3 uL; Neutrophils % (auto) 50.9 % (37.0-80.0); Platelet Count (auto) 233 10^3/uL (140-450); Red Cell Distribution Width 17.2 % (11.8-14.3); White Blood Cell 6.4 10^3/uL (4.4-10.8)
[2017-09-30] MEDS: metroNIDAZOLE 500MG/100ML 100 ML IV SCH ×3 (06:05→21:25)
[2017-09-30 06:32] LABS: BUN/Creatinine Ratio 4.3; Calcium 7.7 mg/dL (8.5-10.1); Potassium 3.2 mmol/L (3.5-5.1)
[2017-09-30 07:52] VITALS: BP 133/79
[2017-09-30] MEDS: ASPirin-EC 81 mg tab PO SCH (09:20)
[2017-09-30] MEDS ORDERED: POTASSIUM CHL 20 Meq TABLET PO ONE (10:15)
[2017-09-30] MEDS ORDERED: ONDANSETRON HCL 4 MG/2 ML VIAL IV ONE (11:45)
[2017-09-30] MEDS ORDERED: PANTOPRAZOLE 40 MG/10 ML VIAL IV ONE (11:45)
[2017-09-30] MEDS ORDERED: ONDANSETRON HCL 4 MG/2 ML VIAL IV PRN (11:45)
[2017-09-30 12:12] VITALS: BP_SYST 123; BP_SYST 133; BP_DIAS 74; BP_DIAS 79
[2017-09-30 17:00] VITALS: BP 121/71
[2017-09-30] MEDS: KETOROLAC TROMETH 30 MG/ML 1ML VIAL IV PRN (21:24)
[2017-09-30] MEDS: ATORVASTATIN 20 MG TAB PO SCH (21:25)
[2017-09-30 21:30] VITALS: BP 123/76
[2017-09-30] MEDS: ALPRAZolam 0.25 MG TAB PO PRN (23:09)
[2017-10-01] VITALS (7 sets, daily range): BP systolic 103–128; BP diastolic 67–80
[2017-10-01] MEDS: D5W/SOD CHL 0.45% 1,000 ML IV SCH ×3 (00:22→17:34)
[2017-10-01] MEDS: VANCOMYCIN HCL 125MG/5ML ORAL SOL PO SCH ×4 (00:22→17:34)
[2017-10-01] MEDS: MORPHINE SULFATE 4 MG/ML SYR/VIAL IV PRN ×9 (00:32→21:44)
[2017-10-01] MEDS: ONDANSETRON ODT 4 MG TAB PO PRN ×4 (03:18→21:45)
[2017-10-01] MEDS: KETOROLAC TROMETH 30 MG/ML 1ML VIAL IV PRN ×3 (03:19→21:51)
[2017-10-01 05:50] LABS: Hematocrit 34.9 % (36.0-46.0); Hemoglobin 11.9 g/dL (12.2-16.2); Mean Corpuscular Hemoglobin 29.9 pg (28.0-32.0); Mean Corpuscular Hgb Conc. 34.2 g/dL (32.0-36.0); Mean Corpuscular Volume 87.5 fL (80.0-100.0); Platelet Count (auto) 237 10^3/uL (140-450); Red Blood Cells 3.99 10^6/uL (4.0-5.20); Red Cell Distribution Width 17.8 % (11.8-14.3); White Blood Cell 6.8 10^3/uL (4.4-10.8)
[2017-10-01 05:52] LABS: Band Neutrophils % (manual) 0; Basophils % (manual) 0 (0.0-2.0); Blast Cells 0; Metamyelocytes % 0; Myelocytes % 0; Promyelocytes % 0; Reactive Lymphocytes 0
[2017-10-01] MEDS: metroNIDAZOLE 500MG/100ML 100 ML IV SCH (05:57)
[2017-10-01 06:08] LABS: BUN/Creatinine Ratio 2.3; Calcium 7.8 mg/dL (8.5-10.1); Potassium 3.8 mmol/L (3.5-5.1)
[2017-10-01 06:45] LABS: Eosinophils % (manual) 23 (0-7); Lymphocytes % (manual) 39 (10.0-50.0); Monocytes % (manual) 13 (0-12)
[2017-10-01] MEDS: ALBUTEROL SULF 2.5 MG/0.5ML(0.5%) NEB SOLN NEB PRN (08:49)
[2017-10-01] MEDS: ASPirin-EC 81 mg tab PO SCH (09:40)
[2017-10-01] MEDS: PANTOPRAZOLE 40 MG/10 ML VIAL IV SCH (09:41)
[2017-10-01] MEDS ORDERED: metroNIDAZOLE 500 MG TAB PO SCH (15:00)
[2017-10-01] MEDS: metroNIDAZOLE 500 MG TAB PO SCH (17:34)
[2017-10-01] MEDS: ATORVASTATIN 20 MG TAB PO SCH (21:44)
[2017-10-01] MEDS: ALPRAZolam 0.25 MG TAB PO PRN (21:45)
[2017-10-02] MEDS: MORPHINE SULFATE 4 MG/ML SYR/VIAL IV PRN ×5 (00:45→13:04)
[2017-10-02] MEDS: metroNIDAZOLE 500 MG TAB PO SCH ×4 (00:45→17:54)
[2017-10-02] MEDS: D5W/SOD CHL 0.45% 1,000 ML IV SCH ×2 (00:46→15:17)
[2017-10-02] MEDS: VANCOMYCIN HCL 125MG/5ML ORAL SOL PO SCH ×4 (00:46→17:54)
[2017-10-02] MEDS: KETOROLAC TROMETH 30 MG/ML 1ML VIAL IV PRN (04:02)
[2017-10-02 05:00] VITALS: BP 116/73
[2017-10-02 05:54] LABS: Hematocrit 36.4 % (36.0-46.0); Hemoglobin 12.1 g/dL (12.2-16.2); Mean Corpuscular Hgb Conc. 33.3 g/dL (32.0-36.0); Platelet Count (auto) 259 10^3/uL (140-450); Red Blood Cells 4.18 10^6/uL (4.0-5.20); Red Cell Distribution Width 17.9 % (11.8-14.3); White Blood Cell 7.4 10^3/uL (4.4-10.8)
[2017-10-02 05:57] LABS: Basophils % (manual) 0 (0.0-2.0); Blast Cells 0; Calcium 7.9 mg/dL (8.5-10.1); Metamyelocytes % 0; Myelocytes % 0; Potassium 3.8 mmol/L (3.5-5.1); Promyelocytes % 0; Reactive Lymphocytes 0
[2017-10-02 06:00] LABS: BUN/Creatinine Ratio 2.4
[2017-10-02 06:43] LABS: Band Neutrophils % (manual) 4; Eosinophils % (manual) 16 (0-7); Lymphocytes % (manual) 34 (10.0-50.0); Monocytes % (manual) 11 (0-12)
[2017-10-02 09:00] VITALS: BP 134/71
[2017-10-02] MEDS: ASPirin-EC 81 mg tab PO SCH (09:28)
[2017-10-02] MEDS: PANTOPRAZOLE 40 MG/10 ML VIAL IV SCH (09:28)
[2017-10-02] MEDS: ONDANSETRON ODT 4 MG TAB PO PRN (09:54)
[2017-10-02 13:21] VITALS: BP 143/85
[2017-10-02] MEDS: HYOSCYAMINE SULF 0.125 MG TAB PO PRN ×2 (16:20→20:17)
[2017-10-02 17:19] VITALS: BP 110/97
[2017-10-02] MEDS: ATORVASTATIN 20 MG TAB PO SCH (20:17)
[2017-10-02 22:00] VITALS: BP 126/74
[2017-10-03] MEDS ORDERED: HYOSCYAMINE SULF 0.125 MG TAB ONE ×2 (00:27→00:28)
[2017-10-03] MEDS: VANCOMYCIN HCL 125MG/5ML ORAL SOL PO SCH ×4 (00:30→17:46)
[2017-10-03] MEDS: metroNIDAZOLE 500 MG TAB PO SCH ×4 (00:30→17:46)
[2017-10-03] MEDS: HYOSCYAMINE SULF 0.125 MG TAB PO PRN ×3 (00:30→12:22)
[2017-10-03] MEDS: D5W/SOD CHL 0.45% 1,000 ML IV SCH ×3 (00:31→21:15)
[2017-10-03] MEDS: ALBUTEROL SULF 2.5 MG/0.5ML(0.5%) NEB SOLN NEB PRN ×2 (01:03→22:40)
[2017-10-03] MEDS ORDERED: POTASSIUM CHL 20 Meq TABLET PO ONE (02:00)
[2017-10-03] MEDS ORDERED: FUROSEMIDE 40 MG TAB PO ONE (02:00)
[2017-10-03 06:22] LABS: Basophils # (auto) 0.1 uL; Basophils % (auto) 1.1 % (0.0-2.0); Eosinophils % (auto) 13.4 % (0.0-7.0); Hematocrit 37.7 % (36.0-46.0); Hemoglobin 12.7 g/dL (12.2-16.2); Lymphocytes # (auto) 1.3 uL; Lymphocytes % (auto) 16.5 % (10.0-50.0); Mean Corpuscular Hemoglobin 29.1 pg (28.0-32.0); Mean Corpuscular Hgb Conc. 33.5 g/dL (32.0-36.0); Mean Corpuscular Volume 86.9 fL (80.0-100.0); Monocytes # (auto) 0.8 uL; Monocytes % (auto) 10.6 % (0.0-12.0); Neutrophils # (auto) 4.5 uL; Neutrophils % (auto) 58.4 % (37.0-80.0); Platelet Count (auto) 260 10^3/uL (140-450); Red Blood Cells 4.34 10^6/uL (4.0-5.20); Red Cell Distribution Width 17.7 % (11.8-14.3); White Blood Cell 7.7 10^3/uL (4.4-10.8)
[2017-10-03 06:40] LABS: BUN/Creatinine Ratio 2.4; Calcium 8.3 mg/dL (8.5-10.1)
[2017-10-03 07:54] VITALS: BP 133/82
[2017-10-03 08:00] VITALS: BP 126/74
[2017-10-03] MEDS: ASPirin-EC 81 mg tab PO SCH (09:13)
[2017-10-03] MEDS: POTASSIUM CHL 20 Meq TABLET PO SCH (09:13)
[2017-10-03] MEDS: PANTOPRAZOLE 40 MG/10 ML VIAL IV SCH (09:13)
[2017-10-03] MEDS: FUROSEMIDE 40 MG TAB PO SCH (09:14)
[2017-10-03 13:25] VITALS: BP 136/67
[2017-10-03 16:36] VITALS: BP 118/72
[2017-10-03] MEDS: ATORVASTATIN 20 MG TAB PO SCH (20:06)
[2017-10-03] MEDS: MORPHINE SULFATE 4 MG/ML SYR/VIAL IV PRN ×2 (20:07→22:59)
[2017-10-03] MEDS: ONDANSETRON ODT 4 MG TAB PO PRN (20:15)
[2017-10-03 21:53] VITALS: BP 132/69
[2017-10-04] MEDS: metroNIDAZOLE 500 MG TAB PO SCH ×5 (00:53→23:38)
[2017-10-04] MEDS: VANCOMYCIN HCL 125MG/5ML ORAL SOL PO SCH ×5 (00:53→23:41)
[2017-10-04] MEDS: MORPHINE SULFATE 4 MG/ML SYR/VIAL IV PRN ×6 (02:07→23:38)
[2017-10-04 04:56] VITALS: BP 132/79
[2017-10-04 05:49] LABS: Basophils # (auto) 0.1 uL; Eosinophils # (auto) 0.5 uL; Hematocrit 35.1 % (36.0-46.0); Lymphocytes # (auto) 1.8 uL; Lymphocytes % (auto) 26.8 % (10.0-50.0); Mean Corpuscular Hemoglobin 29.5 pg (28.0-32.0); Mean Corpuscular Hgb Conc. 34.2 g/dL (32.0-36.0); Mean Corpuscular Volume 86.3 fL (80.0-100.0); Monocytes # (auto) 0.9 uL; Monocytes % (auto) 12.7 % (0.0-12.0); Neutrophils # (auto) 3.5 uL; Neutrophils % (auto) 51.5 % (37.0-80.0); Nucleated Red Blood Cells % 0.1 %; Platelet Count (auto) 270 10^3/uL (140-450); Red Blood Cells 4.07 10^6/uL (4.0-5.20); White Blood Cell 6.8 10^3/uL (4.4-10.8)
[2017-10-04 06:22] LABS: Potassium 3.1 mmol/L (3.5-5.1)
[2017-10-04 06:28] LABS: BUN/Creatinine Ratio 3.3; Calcium 7.9 mg/dL (8.5-10.1)
[2017-10-04 06:46] VITALS: BP 132/79
[2017-10-04 09:00] VITALS: BP 116/73
[2017-10-04] MEDS: ALBUTEROL SULF 2.5 MG/0.5ML(0.5%) NEB SOLN NEB PRN ×2 (09:10→18:01)
[2017-10-04] MEDS: HYOSCYAMINE SULF 0.125 MG TAB PO PRN (09:20)
[2017-10-04] MEDS: POTASSIUM CHL 20 Meq TABLET PO SCH (09:58)
[2017-10-04] MEDS: FUROSEMIDE 40 MG TAB PO SCH (09:59)
[2017-10-04] MEDS: ASPirin-EC 81 mg tab PO SCH (09:59)
[2017-10-04] MEDS: PANTOPRAZOLE 40 MG/10 ML VIAL IV SCH (10:00)
[2017-10-04] MEDS: ONDANSETRON ODT 4 MG TAB PO PRN ×3 (10:03→20:30)
[2017-10-04 13:00] VITALS: BP 130/70
[2017-10-04] MEDS: FLORASTOR (S. BOULARDII) 250 MG CAP PO SCH ×2 (15:20→20:30)
[2017-10-04 16:57] VITALS: BP 122/70
[2017-10-04] MEDS: D5W/SOD CHL 0.45% 1,000 ML IV SCH ×2 (17:43→17:44)
[2017-10-04] MEDS: ATORVASTATIN 20 MG TAB PO SCH (20:30)
[2017-10-04 22:00] VITALS: BP 119/67
[2017-10-04] MEDS: ALPRAZolam 0.25 MG TAB PO PRN (23:38)
[2017-10-05] MEDS: ONDANSETRON ODT 4 MG TAB PO PRN (03:23)
[2017-10-05] MEDS: MORPHINE SULFATE 4 MG/ML SYR/VIAL IV PRN ×7 (03:26→21:44)
[2017-10-05 05:00] VITALS: BP 124/71
[2017-10-05 06:17] LABS: Basophils # (auto) 0.3 uL; Basophils % (auto) 3.4 % (0.0-2.0); Eosinophils # (auto) 0.9 uL; Eosinophils % (auto) 10.5 % (0.0-7.0); Hematocrit 37.4 % (36.0-46.0); Hemoglobin 12.7 g/dL (12.2-16.2); Lymphocytes # (auto) 2.5 uL; Lymphocytes % (auto) 30.3 % (10.0-50.0); Mean Corpuscular Hemoglobin 29.2 pg (28.0-32.0); Mean Corpuscular Hgb Conc. 33.9 g/dL (32.0-36.0); Mean Corpuscular Volume 86.2 fL (80.0-100.0); Monocytes # (auto) 1.1 uL; Monocytes % (auto) 13.5 % (0.0-12.0); Neutrophils # (auto) 3.4 uL; Neutrophils % (auto) 42.3 % (37.0-80.0); Nucleated Red Blood Cells % 0.1 %; Platelet Count (auto) 277 10^3/uL (140-450); Red Blood Cells 4.35 10^6/uL (4.0-5.20); Red Cell Distribution Width 17.2 % (11.8-14.3); White Blood Cell 8.1 10^3/uL (4.4-10.8)
[2017-10-05] MEDS: D5W/SOD CHL 0.45% 1,000 ML IV SCH ×2 (06:28→13:44)
[2017-10-05 06:29] LABS: Potassium 3.3 mmol/L (3.5-5.1)
[2017-10-05] MEDS: VANCOMYCIN HCL 125MG/5ML ORAL SOL PO SCH ×3 (06:29→18:21)
[2017-10-05] MEDS: metroNIDAZOLE 500 MG TAB PO SCH ×3 (06:29→18:20)
[2017-10-05 06:32] LABS: BUN/Creatinine Ratio 3.3
[2017-10-05] MEDS: ALBUTEROL SULF 2.5 MG/0.5ML(0.5%) NEB SOLN NEB PRN ×2 (07:02→18:09)
[2017-10-05 09:00] VITALS: BP 125/64
[2017-10-05] MEDS: ASPirin-EC 81 mg tab PO SCH (09:33)
[2017-10-05] MEDS: FUROSEMIDE 40 MG TAB PO SCH (09:33)
[2017-10-05] MEDS: FLORASTOR (S. BOULARDII) 250 MG CAP PO SCH ×2 (09:33→21:44)
[2017-10-05] MEDS: PANTOPRAZOLE 40 MG/10 ML VIAL IV SCH (09:33)
[2017-10-05] MEDS: POTASSIUM CHL 20 Meq TABLET PO SCH (09:34)
[2017-10-05] MEDS ORDERED: POTASSIUM CHL 10 Meq TABLET PO ONE (10:30)
[2017-10-05 13:02] VITALS: BP 124/75
[2017-10-05 17:00] VITALS: BP 114/73
[2017-10-05] MEDS: ATORVASTATIN 20 MG TAB PO SCH (21:44)
[2017-10-05 21:47] VITALS: BP 124/77
[2017-10-06] MEDS: MORPHINE SULFATE 4 MG/ML SYR/VIAL IV PRN ×8 (00:54→23:13)
[2017-10-06] MEDS: D5W/SOD CHL 0.45% 1,000 ML IV SCH ×3 (03:06→19:15)
[2017-10-06 05:00] VITALS: BP 125/72
[2017-10-06] MEDS: VANCOMYCIN HCL 125MG/5ML ORAL SOL PO SCH ×2 (06:00)
[2017-10-06] MEDS: metroNIDAZOLE 500 MG TAB PO SCH ×2 (06:00)
[2017-10-06] MEDS: ALBUTEROL SULF 2.5 MG/0.5ML(0.5%) NEB SOLN NEB PRN (07:07)
[2017-10-06 07:22] LABS: Basophils # (auto) 0.1 uL; Basophils % (auto) 1.2 % (0.0-2.0); Eosinophils # (auto) 1.2 uL; Eosinophils % (auto) 13.8 % (0.0-7.0); Hematocrit 36.8 % (36.0-46.0); Hemoglobin 12.4 g/dL (12.2-16.2); Lymphocytes % (auto) 23.6 % (10.0-50.0); Mean Corpuscular Hgb Conc. 33.6 g/dL (32.0-36.0); Mean Corpuscular Volume 86.2 fL (80.0-100.0); Monocytes % (auto) 12.3 % (0.0-12.0); Neutrophils # (auto) 4.1 uL; Neutrophils % (auto) 49.1 % (37.0-80.0); Nucleated Red Blood Cells % 0.1 %; Platelet Count (auto) 270 10^3/uL (140-450); Red Blood Cells 4.27 10^6/uL (4.0-5.20); Red Cell Distribution Width 17.7 % (11.8-14.3); White Blood Cell 8.4 10^3/uL (4.4-10.8)
[2017-10-06 07:30] LABS: Albumin 2.8 g/dL (3.4-5.0); BUN/Creatinine Ratio 2.5; Bilirubin, Total 0.4 mg/dL (0.2-1.0); Calcium 7.9 mg/dL (8.5-10.1); Potassium 3.3 mmol/L (3.5-5.1); Total Protein 4.8 g/dL (6.4-8.2)
[2017-10-06 09:00] VITALS: BP 125/71
[2017-10-06] MEDS: POTASSIUM CHL 20 Meq TABLET PO SCH (10:42)
[2017-10-06] MEDS: FLORASTOR (S. BOULARDII) 250 MG CAP PO SCH ×2 (10:42→21:10)
[2017-10-06] MEDS: POTASSIUM CHL 10% (20 MEQ/15ML) 15ml ORAL SOLN PO SCH (10:42)
[2017-10-06] MEDS: PANTOPRAZOLE 40 MG/10 ML VIAL IV SCH (10:43)
[2017-10-06] MEDS: FUROSEMIDE 40 MG TAB PO SCH (10:43)
[2017-10-06] MEDS: ASPirin-EC 81 mg tab PO SCH (11:06)
[2017-10-06] MEDS: BOOST PLUS 8 ounce PO SCH ×2 (12:00→18:00)
[2017-10-06 13:00] VITALS: BP 115/69
[2017-10-06 17:00] VITALS: BP 116/70
[2017-10-06] MEDS: ATORVASTATIN 20 MG TAB PO SCH (21:10)
[2017-10-06] MEDS: PANTOPRAZOLE 40 MG TAB PO SCH (21:10)
[2017-10-06 21:45] VITALS: BP 104/67
[2017-10-07] MEDS: MORPHINE SULFATE 4 MG/ML SYR/VIAL IV PRN ×7 (02:17→21:06)
[2017-10-07 04:47] VITALS: BP 126/71
[2017-10-07] MEDS: D5W/SOD CHL 0.45% 1,000 ML IV SCH ×2 (05:40→15:39)
[2017-10-07] MEDS: ALBUTEROL SULF 2.5 MG/0.5ML(0.5%) NEB SOLN NEB PRN ×2 (06:07→19:47)
[2017-10-07 07:04] LABS: BUN/Creatinine Ratio 5.2; Potassium 3.7 mmol/L (3.5-5.1)
[2017-10-07 07:31] LABS: Basophils # (auto) 0.1 uL; Basophils % (auto) 1.3 % (0.0-2.0); Eosinophils # (auto) 1.1 uL; Eosinophils % (auto) 14.2 % (0.0-7.0); Hematocrit 38.7 % (36.0-46.0); Lymphocytes # (auto) 2.3 uL; Lymphocytes % (auto) 28.4 % (10.0-50.0); Mean Corpuscular Hemoglobin 28.7 pg (28.0-32.0); Mean Corpuscular Hgb Conc. 33.5 g/dL (32.0-36.0); Mean Corpuscular Volume 85.9 fL (80.0-100.0); Monocytes % (auto) 12.7 % (0.0-12.0); Neutrophils # (auto) 3.5 uL; Neutrophils % (auto) 43.4 % (37.0-80.0); Nucleated Red Blood Cells % 0.1 %; Platelet Count (auto) 249 10^3/uL (140-450); Red Blood Cells 4.51 10^6/uL (4.0-5.20); White Blood Cell 8.1 10^3/uL (4.4-10.8)
[2017-10-07] MEDS: PANTOPRAZOLE 40 MG TAB PO SCH (08:27)
[2017-10-07] MEDS: BOOST PLUS 8 ounce PO SCH ×3 (08:27→18:59)
[2017-10-07 08:35] VITALS: BP 128/74
[2017-10-07 09:37] VITALS: BP 128/74
[2017-10-07] MEDS ORDERED: FECAL MICROBIOTA TRANSPLANTATION 30mL SUSPENSION NG ONE (10:00)
[2017-10-07] MEDS: PANTOPRAZOLE 40 MG/10 ML VIAL IV SCH (10:29)
[2017-10-07] MEDS: FLORASTOR (S. BOULARDII) 250 MG CAP PO SCH ×2 (10:29→21:31)
[2017-10-07] MEDS: ASPirin-EC 81 mg tab PO SCH (10:29)
[2017-10-07] MEDS: ALPRAZolam 0.25 MG TAB PO PRN (10:29)
[2017-10-07] MEDS: FUROSEMIDE 40 MG TAB PO SCH (10:29)
[2017-10-07] MEDS: POTASSIUM CHL 20 Meq TABLET PO SCH (10:30)
[2017-10-07] MEDS: ONDANSETRON ODT 4 MG TAB PO PRN ×2 (10:30→21:06)
[2017-10-07 11:46] VITALS: BP 119/66
[2017-10-07] MEDS: POTASSIUM CHL 10% (20 MEQ/15ML) 15ml ORAL SOLN PO SCH (14:42)
[2017-10-07 17:00] VITALS: BP 98/60
[2017-10-07] MEDS: ATORVASTATIN 20 MG TAB PO SCH (21:31)
[2017-10-07 22:00] VITALS: BP 98/48
[2017-10-08] VITALS (7 sets, daily range): BP systolic 112–128; BP diastolic 54–74
[2017-10-08] MEDS: MORPHINE SULFATE 4 MG/ML SYR/VIAL IV PRN ×7 (01:00→21:06)
[2017-10-08] MEDS: D5W/SOD CHL 0.45% 1,000 ML IV SCH ×3 (01:15→21:05)
[2017-10-08] MEDS: ALBUTEROL SULF 2.5 MG/0.5ML(0.5%) NEB SOLN NEB PRN ×2 (06:06→22:16)
[2017-10-08 06:10] LABS: Hematocrit 37.1 % (36.0-46.0); Hemoglobin 12.7 g/dL (12.2-16.2); Mean Corpuscular Hemoglobin 29.5 pg (28.0-32.0); Mean Corpuscular Hgb Conc. 34.1 g/dL (32.0-36.0); Mean Corpuscular Volume 86.4 fL (80.0-100.0); Platelet Count (auto) 238 10^3/uL (140-450); Red Blood Cells 4.29 10^6/uL (4.0-5.20); Red Cell Distribution Width 17.2 % (11.8-14.3); White Blood Cell 8.4 10^3/uL (4.4-10.8)
[2017-10-08 06:12] LABS: Basophils % (manual) 0 (0.0-2.0); Blast Cells 0; Metamyelocytes % 0; Myelocytes % 0; Promyelocytes % 0; Reactive Lymphocytes 0
[2017-10-08 06:24] LABS: Calcium 8.1 mg/dL (8.5-10.1); Potassium 3.7 mmol/L (3.5-5.1)
[2017-10-08 06:56] LABS: Band Neutrophils % (manual) 1; Eosinophils % (manual) 14 (0-7); Lymphocytes % (manual) 29 (10.0-50.0); Monocytes % (manual) 12 (0-12)
[2017-10-08] MEDS: ONDANSETRON ODT 4 MG TAB PO PRN ×2 (08:04→21:06)
[2017-10-08] MEDS: PANTOPRAZOLE 40 MG/10 ML VIAL IV SCH (08:51)
[2017-10-08] MEDS: ASPirin-EC 81 mg tab PO SCH (08:52)
[2017-10-08] MEDS: FUROSEMIDE 40 MG TAB PO SCH (08:52)
[2017-10-08] MEDS: FLORASTOR (S. BOULARDII) 250 MG CAP PO SCH ×2 (08:52→21:06)
[2017-10-08] MEDS: POTASSIUM CHL 20 Meq TABLET PO SCH (08:52)
[2017-10-08] MEDS: POTASSIUM CHL 10% (20 MEQ/15ML) 15ml ORAL SOLN PO SCH (08:53)
[2017-10-08] MEDS: BOOST PLUS 8 ounce PO SCH ×3 (08:53→18:00)
[2017-10-08] MEDS: ATORVASTATIN 20 MG TAB PO SCH (21:06)
[2017-10-08] MEDS: HYOSCYAMINE SULF 0.125 MG TAB PO PRN (22:50)
[2017-10-09] MEDS: MORPHINE SULFATE 4 MG/ML SYR/VIAL IV PRN ×8 (00:10→22:06)
[2017-10-09] MEDS: ONDANSETRON ODT 4 MG TAB PO PRN ×2 (03:12→21:58)
[2017-10-09 04:49] VITALS: BP 108/64
[2017-10-09 05:59] LABS: Hemoglobin 11.6 g/dL (12.2-16.2); Mean Corpuscular Hemoglobin 29.3 pg (28.0-32.0); Mean Corpuscular Hgb Conc. 34.1 g/dL (32.0-36.0); Platelet Count (auto) 234 10^3/uL (140-450); Red Blood Cells 3.95 10^6/uL (4.0-5.20); Red Cell Distribution Width 17.1 % (11.8-14.3); White Blood Cell 7.1 10^3/uL (4.4-10.8)
[2017-10-09 06:10] LABS: BUN/Creatinine Ratio 6.5; Basophils % (manual) 0 (0.0-2.0); Blast Cells 0; Calcium 8.1 mg/dL (8.5-10.1); Metamyelocytes % 0; Myelocytes % 0; Potassium 3.7 mmol/L (3.5-5.1); Promyelocytes % 0; Reactive Lymphocytes 0
[2017-10-09] MEDS: D5W/SOD CHL 0.45% 1,000 ML IV SCH ×2 (06:15→16:07)
[2017-10-09 06:54] LABS: Band Neutrophils % (manual) 1; Eosinophils % (manual) 13 (0-7); Lymphocytes % (manual) 32 (10.0-50.0); Monocytes % (manual) 9 (0-12)
[2017-10-09 08:00] VITALS: BP 123/60
[2017-10-09] MEDS: BOOST PLUS 8 ounce PO SCH ×3 (08:00→18:00)
[2017-10-09 08:29] VITALS: BP 98/58
[2017-10-09] MEDS: FLORASTOR (S. BOULARDII) 250 MG CAP PO SCH ×2 (09:10→21:57)
[2017-10-09] MEDS: PANTOPRAZOLE 40 MG/10 ML VIAL IV SCH (09:10)
[2017-10-09] MEDS: ASPirin-EC 81 mg tab PO SCH (09:10)
[2017-10-09] MEDS: POTASSIUM CHL 20 Meq TABLET PO SCH (09:10)
[2017-10-09] MEDS: FUROSEMIDE 40 MG TAB PO SCH (09:12)
[2017-10-09] MEDS: POTASSIUM CHL 10% (20 MEQ/15ML) 15ml ORAL SOLN PO SCH (10:00)
[2017-10-09] MEDS: ALBUTEROL SULF 2.5 MG/0.5ML(0.5%) NEB SOLN NEB PRN ×2 (10:37→18:32)
[2017-10-09 12:37] VITALS: BP 123/72
[2017-10-09 17:14] VITALS: BP 104/58
[2017-10-09 20:00] VITALS: BP 111/66
[2017-10-09] MEDS: ATORVASTATIN 20 MG TAB PO SCH (21:57)
[2017-10-10] VITALS (7 sets, daily range): BP systolic 98–128; BP diastolic 58–72
[2017-10-10] MEDS: D5W/SOD CHL 0.45% 1,000 ML IV SCH ×3 (01:16→23:30)
[2017-10-10] MEDS: MORPHINE SULFATE 4 MG/ML SYR/VIAL IV PRN ×8 (01:16→23:30)
[2017-10-10 05:59] LABS: Hematocrit 36.3 % (36.0-46.0); Hemoglobin 12.3 g/dL (12.2-16.2); Mean Corpuscular Hemoglobin 29.4 pg (28.0-32.0); Mean Corpuscular Volume 86.5 fL (80.0-100.0); Platelet Count (auto) 252 10^3/uL (140-450); Red Blood Cells 4.19 10^6/uL (4.0-5.20); Red Cell Distribution Width 17.8 % (11.8-14.3); White Blood Cell 7.6 10^3/uL (4.4-10.8)
[2017-10-10 06:00] LABS: Basophils % (manual) 0 (0.0-2.0); Blast Cells 0; Metamyelocytes % 0; Myelocytes % 0; Promyelocytes % 0; Reactive Lymphocytes 0
[2017-10-10 06:13] LABS: Calcium 8.6 mg/dL (8.5-10.1)
[2017-10-10 06:16] LABS: BUN/Creatinine Ratio 11.8
[2017-10-10 06:49] LABS: Band Neutrophils % (manual) 2; Eosinophils % (manual) 15 (0-7); Lymphocytes % (manual) 27 (10.0-50.0); Monocytes % (manual) 9 (0-12)
[2017-10-10] MEDS: BOOST PLUS 8 ounce PO SCH ×3 (08:00→18:00)
[2017-10-10] MEDS: ALBUTEROL SULF 2.5 MG/0.5ML(0.5%) NEB SOLN NEB PRN (08:33)
[2017-10-10] MEDS: ASPirin-EC 81 mg tab PO SCH (09:00)
[2017-10-10] MEDS: PANTOPRAZOLE 40 MG/10 ML VIAL IV SCH (09:00)
[2017-10-10] MEDS: POTASSIUM CHL 20 Meq TABLET PO SCH (09:00)
[2017-10-10] MEDS: FLORASTOR (S. BOULARDII) 250 MG CAP PO SCH ×2 (09:00→21:38)
[2017-10-10] MEDS: FUROSEMIDE 40 MG TAB PO SCH (09:01)
[2017-10-10] MEDS: POTASSIUM CHL 10% (20 MEQ/15ML) 15ml ORAL SOLN PO SCH (10:00)
[2017-10-10] MEDS: ONDANSETRON ODT 4 MG TAB PO PRN (11:29)
[2017-10-10] MEDS: ATORVASTATIN 20 MG TAB PO SCH (21:38)
[2017-10-11] MEDS: MORPHINE SULFATE 4 MG/ML SYR/VIAL IV PRN ×5 (02:37→14:43)
[2017-10-11] MEDS: ALBUTEROL SULF 2.5 MG/0.5ML(0.5%) NEB SOLN NEB PRN ×2 (03:26→14:27)
[2017-10-11 04:55] VITALS: BP 118/69
[2017-10-11 05:53] LABS: Basophils # (auto) 0.1 uL; Basophils % (auto) 1.3 % (0.0-2.0); Eosinophils # (auto) 1.2 uL; Eosinophils % (auto) 14.3 % (0.0-7.0); Hematocrit 37.8 % (36.0-46.0); Hemoglobin 12.6 g/dL (12.2-16.2); Lymphocytes # (auto) 2.3 uL; Lymphocytes % (auto) 28.9 % (10.0-50.0); Mean Corpuscular Hemoglobin 29.2 pg (28.0-32.0); Mean Corpuscular Hgb Conc. 33.3 g/dL (32.0-36.0); Mean Corpuscular Volume 87.7 fL (80.0-100.0); Monocytes # (auto) 0.9 uL; Monocytes % (auto) 11.4 % (0.0-12.0); Neutrophils # (auto) 3.5 uL; Neutrophils % (auto) 44.1 % (37.0-80.0); Nucleated Red Blood Cells % 0.1 %; Platelet Count (auto) 231 10^3/uL (140-450); Red Blood Cells 4.32 10^6/uL (4.0-5.20); Red Cell Distribution Width 17.2 % (11.8-14.3)
[2017-10-11 06:14] LABS: BUN/Creatinine Ratio 12.4; Calcium 8.7 mg/dL (8.5-10.1); Potassium 3.9 mmol/L (3.5-5.1)
[2017-10-11] MEDS: BOOST PLUS 8 ounce PO SCH ×3 (08:39→17:51)
[2017-10-11] MEDS: ONDANSETRON ODT 4 MG TAB PO PRN ×3 (08:40→20:36)
[2017-10-11] MEDS: D5W/SOD CHL 0.45% 1,000 ML IV SCH ×2 (08:40→19:15)
[2017-10-11 09:00] VITALS: BP 120/79
[2017-10-11] MEDS: PANTOPRAZOLE 40 MG/10 ML VIAL IV SCH (10:26)
[2017-10-11] MEDS: POTASSIUM CHL 10% (20 MEQ/15ML) 15ml ORAL SOLN PO SCH (10:27)
[2017-10-11] MEDS: FLORASTOR (S. BOULARDII) 250 MG CAP PO SCH ×2 (10:27→20:35)
[2017-10-11] MEDS: POTASSIUM CHL 20 Meq TABLET PO SCH (10:27)
[2017-10-11] MEDS: FUROSEMIDE 40 MG TAB PO SCH (10:27)
[2017-10-11] MEDS: ASPirin-EC 81 mg tab PO SCH (10:27)
[2017-10-11 13:00] VITALS: BP 110/79
[2017-10-11 17:10] VITALS: BP 110/65
[2017-10-11] MEDS: MORPHINE SULFATE 8mg/ml INJ SDV IV PRN ×3 (17:30→23:44)
[2017-10-11] MEDS: ATORVASTATIN 20 MG TAB PO SCH (20:35)
[2017-10-11 21:31] VITALS: BP 108/77
[2017-10-12] VITALS (7 sets, daily range): BP systolic 73–135; BP diastolic 20–79
[2017-10-12] MEDS: MORPHINE SULFATE 8mg/ml INJ SDV IV PRN ×2 (02:33→05:44)
[2017-10-12] MEDS: D5W/SOD CHL 0.45% 1,000 ML IV SCH ×2 (05:00→16:10)
[2017-10-12 05:59] LABS: Basophils # (auto) 0.2 uL; Basophils % (auto) 2.3 % (0.0-2.0); Eosinophils # (auto) 1.1 uL; Eosinophils % (auto) 13.4 % (0.0-7.0); Hematocrit 36.7 % (36.0-46.0); Hemoglobin 12.1 g/dL (12.2-16.2); Lymphocytes # (auto) 2.1 uL; Lymphocytes % (auto) 27.2 % (10.0-50.0); Mean Corpuscular Hemoglobin 29.2 pg (28.0-32.0); Mean Corpuscular Hgb Conc. 32.9 g/dL (32.0-36.0); Mean Corpuscular Volume 88.8 fL (80.0-100.0); Monocytes # (auto) 0.9 uL; Monocytes % (auto) 11.3 % (0.0-12.0); Neutrophils # (auto) 3.6 uL; Neutrophils % (auto) 45.8 % (37.0-80.0); Nucleated Red Blood Cells % 0.1 %; Platelet Count (auto) 240 10^3/uL (140-450); Red Blood Cells 4.14 10^6/uL (4.0-5.20); Red Cell Distribution Width 17.3 % (11.8-14.3); White Blood Cell 7.9 10^3/uL (4.4-10.8)
[2017-10-12 06:32] LABS: BUN/Creatinine Ratio 15.3; Calcium 8.4 mg/dL (8.5-10.1)
[2017-10-12] MEDS: BOOST PLUS 8 ounce PO SCH ×3 (08:00→18:47)
[2017-10-12] MEDS ORDERED: HYDROcodone-ACET 5/325MG TAB PO PRN (08:15)
[2017-10-12] MEDS: ASPirin-EC 81 mg tab PO SCH (10:00)
[2017-10-12] MEDS: POTASSIUM CHL 10% (20 MEQ/15ML) 15ml ORAL SOLN PO SCH (10:00)
[2017-10-12] MEDS: FUROSEMIDE 40 MG TAB PO SCH (10:01)
[2017-10-12] MEDS: OXYCODONE W/ ACETAMINOPHEN 5/325MG TABLET PO PRN ×3 (10:02→20:09)
[2017-10-12] MEDS: PANTOPRAZOLE 40 MG/10 ML VIAL IV SCH (10:02)
[2017-10-12] MEDS: POTASSIUM CHL 20 Meq TABLET PO SCH (10:02)
[2017-10-12] MEDS: FLORASTOR (S. BOULARDII) 250 MG CAP PO SCH ×2 (10:03→21:33)
[2017-10-12] MEDS: ONDANSETRON ODT 4 MG TAB PO PRN (20:09)
[2017-10-12] MEDS: ATORVASTATIN 20 MG TAB PO SCH (21:33)
[2017-10-13] MEDS: ONDANSETRON ODT 4 MG TAB PO PRN ×3 (04:23→18:31)
[2017-10-13] MEDS: OXYCODONE W/ ACETAMINOPHEN 5/325MG TABLET PO PRN ×5 (04:25→22:51)
[2017-10-13] MEDS: D5W/SOD CHL 0.45% 1,000 ML IV SCH ×3 (04:26→22:43)
[2017-10-13 04:53] VITALS: BP 134/80
[2017-10-13 07:51] VITALS: BP 120/69
[2017-10-13] MEDS: BOOST PLUS 8 ounce PO SCH ×3 (08:00→18:00)
[2017-10-13] MEDS: PANTOPRAZOLE 40 MG/10 ML VIAL IV SCH (09:08)
[2017-10-13] MEDS: FLORASTOR (S. BOULARDII) 250 MG CAP PO SCH ×2 (09:09→22:43)
[2017-10-13] MEDS: FUROSEMIDE 40 MG TAB PO SCH (09:10)
[2017-10-13] MEDS: POTASSIUM CHL 20 Meq TABLET PO SCH (09:10)
[2017-10-13] MEDS: ASPirin-EC 81 mg tab PO SCH (09:10)
[2017-10-13] MEDS: POTASSIUM CHL 10% (20 MEQ/15ML) 15ml ORAL SOLN PO SCH (09:11)
[2017-10-13 12:08] VITALS: BP 108/65
[2017-10-13 13:32] VITALS: BP 112/57
[2017-10-13] MEDS: ALPRAZolam 0.25 MG TAB PO PRN (16:12)
[2017-10-13 17:17] VITALS: BP 117/63
[2017-10-13] MEDS: HYOSCYAMINE SULF 0.125 MG TAB PO PRN (18:30)
[2017-10-13 22:00] VITALS: BP 127/68
[2017-10-13] MEDS: ATORVASTATIN 20 MG TAB PO SCH (22:44)
[2017-10-14] MEDS: ALBUTEROL SULF 2.5 MG/0.5ML(0.5%) NEB SOLN NEB PRN ×3 (02:29→16:16)
[2017-10-14] MEDS: OXYCODONE W/ ACETAMINOPHEN 5/325MG TABLET PO PRN ×4 (02:49→23:05)
[2017-10-14 05:30] VITALS: BP 90/43
[2017-10-14 05:39] LABS: Basophils # (auto) 0.1 uL; Basophils % (auto) 0.7 % (0.0-2.0); Eosinophils # (auto) 0.2 uL; Eosinophils % (auto) 1.5 % (0.0-7.0); Hematocrit 36.4 % (36.0-46.0); Hemoglobin 12.1 g/dL (12.2-16.2); Lymphocytes # (auto) 1.2 uL; Lymphocytes % (auto) 8.6 % (10.0-50.0); Mean Corpuscular Hemoglobin 29.2 pg (28.0-32.0); Mean Corpuscular Hgb Conc. 33.3 g/dL (32.0-36.0); Mean Corpuscular Volume 87.7 fL (80.0-100.0); Monocytes # (auto) 1.1 uL; Monocytes % (auto) 7.5 % (0.0-12.0); Neutrophils # (auto) 11.5 uL; Neutrophils % (auto) 81.7 % (37.0-80.0); Platelet Count (auto) 249 10^3/uL (140-450); Red Blood Cells 4.15 10^6/uL (4.0-5.20); Red Cell Distribution Width 17.5 % (11.8-14.3); White Blood Cell 14.1 10^3/uL (4.4-10.8)
[2017-10-14 06:01] LABS: Calcium 8.3 mg/dL (8.5-10.1); Potassium 4.1 mmol/L (3.5-5.1)
[2017-10-14 06:03] LABS: BUN/Creatinine Ratio 15.7
[2017-10-14] MEDS: D5W/SOD CHL 0.45% 1,000 ML IV SCH ×3 (08:24→22:55)
[2017-10-14] MEDS: ONDANSETRON ODT 4 MG TAB PO PRN ×2 (08:25→12:52)
[2017-10-14] MEDS: BOOST PLUS 8 ounce PO SCH ×3 (08:26→18:23)
[2017-10-14 08:46] VITALS: BP 101/61
[2017-10-14] MEDS: FLORASTOR (S. BOULARDII) 250 MG CAP PO SCH ×2 (11:37→22:00)
[2017-10-14] MEDS: PANTOPRAZOLE 40 MG/10 ML VIAL IV SCH (11:37)
[2017-10-14] MEDS: FUROSEMIDE 40 MG TAB PO SCH (11:38)
[2017-10-14] MEDS: POTASSIUM CHL 10% (20 MEQ/15ML) 15ml ORAL SOLN PO SCH (11:38)
[2017-10-14 12:00] VITALS: BP 103/65
[2017-10-14] MEDS: ALPRAZolam 0.25 MG TAB PO PRN (12:51)
[2017-10-14 17:00] VITALS: BP 101/56
[2017-10-14 22:00] VITALS: BP 118/72
[2017-10-14] MEDS: CHOLESTYRAMINE 4 GM POWDER PO SCH (22:36)
[2017-10-15] MEDS: OXYCODONE W/ ACETAMINOPHEN 5/325MG TABLET PO PRN ×5 (04:31→22:17)
[2017-10-15 05:00] VITALS: BP 119/68
[2017-10-15 06:28] LABS: Basophils # (auto) 0.1 uL; Basophils % (auto) 0.8 % (0.0-2.0); Eosinophils # (auto) 0.6 uL; Eosinophils % (auto) 6.1 % (0.0-7.0); Hematocrit 34.6 % (36.0-46.0); Hemoglobin 11.9 g/dL (12.2-16.2); Lymphocytes # (auto) 1.5 uL; Lymphocytes % (auto) 15.2 % (10.0-50.0); Mean Corpuscular Hemoglobin 30.1 pg (28.0-32.0); Mean Corpuscular Hgb Conc. 34.3 g/dL (32.0-36.0); Mean Corpuscular Volume 87.7 fL (80.0-100.0); Monocytes % (auto) 10.3 % (0.0-12.0); Neutrophils # (auto) 6.8 uL; Neutrophils % (auto) 67.6 % (37.0-80.0); Nucleated Red Blood Cells % 0.1 %; Platelet Count (auto) 243 10^3/uL (140-450); Red Blood Cells 3.95 10^6/uL (4.0-5.20); Red Cell Distribution Width 17.1 % (11.8-14.3); White Blood Cell 10.1 10^3/uL (4.4-10.8)
[2017-10-15] MEDS: ALBUTEROL SULF 2.5 MG/0.5ML(0.5%) NEB SOLN NEB PRN ×2 (06:41→19:30)
[2017-10-15 06:42] LABS: BUN/Creatinine Ratio 13.5; Calcium 8.7 mg/dL (8.5-10.1); Potassium 3.9 mmol/L (3.5-5.1)
[2017-10-15] MEDS: BOOST PLUS 8 ounce PO SCH ×3 (08:00→18:16)
[2017-10-15 08:10] VITALS: BP 119/68
[2017-10-15 08:41] VITALS: BP 123/70
[2017-10-15] MEDS: ONDANSETRON ODT 4 MG TAB PO PRN ×2 (09:25→13:40)
[2017-10-15] MEDS: PANTOPRAZOLE 40 MG/10 ML VIAL IV SCH (09:26)
[2017-10-15] MEDS: FLORASTOR (S. BOULARDII) 250 MG CAP PO SCH ×2 (09:26→22:16)
[2017-10-15] MEDS: FUROSEMIDE 40 MG TAB PO SCH (09:26)
[2017-10-15] MEDS: POTASSIUM CHL 10% (20 MEQ/15ML) 15ml ORAL SOLN PO SCH (09:27)
[2017-10-15] MEDS: CHOLESTYRAMINE 4 GM POWDER PO SCH ×3 (11:41→22:17)
[2017-10-15 12:00] VITALS: BP 105/62
[2017-10-15] MEDS: D5W/SOD CHL 0.45% 1,000 ML IV SCH ×2 (13:15→22:17)
[2017-10-15] MEDS: ALPRAZolam 0.25 MG TAB PO PRN (16:31)
[2017-10-15 17:00] VITALS: BP 119/70
[2017-10-15] MEDS: HYOSCYAMINE SULF 0.125 MG TAB PO PRN (17:14)
[2017-10-15 22:00] VITALS: BP 104/67
[2017-10-16] VITALS (7 sets, daily range): BP systolic 106–131; BP diastolic 66–69
[2017-10-16] MEDS: ONDANSETRON ODT 4 MG TAB PO PRN ×3 (01:50→20:04)
[2017-10-16] MEDS: OXYCODONE W/ ACETAMINOPHEN 5/325MG TABLET PO PRN ×2 (03:20→08:26)
[2017-10-16] MEDS: CHOLESTYRAMINE 4 GM POWDER PO SCH ×4 (05:43→21:17)
[2017-10-16 06:47] LABS: Basophils # (auto) 0.1 uL; Basophils % (auto) 1.3 % (0.0-2.0); Eosinophils # (auto) 0.8 uL; Eosinophils % (auto) 10.4 % (0.0-7.0); Hematocrit 36.1 % (36.0-46.0); Lymphocytes # (auto) 1.6 uL; Lymphocytes % (auto) 22.1 % (10.0-50.0); Mean Corpuscular Hemoglobin 29.3 pg (28.0-32.0); Mean Corpuscular Hgb Conc. 33.2 g/dL (32.0-36.0); Mean Corpuscular Volume 88.2 fL (80.0-100.0); Monocytes # (auto) 0.9 uL; Monocytes % (auto) 11.9 % (0.0-12.0); Neutrophils # (auto) 3.9 uL; Neutrophils % (auto) 54.3 % (37.0-80.0); Platelet Count (auto) 253 10^3/uL (140-450); Red Cell Distribution Width 17.2 % (11.8-14.3); White Blood Cell 7.3 10^3/uL (4.4-10.8)
[2017-10-16 06:52] LABS: Calcium 8.7 mg/dL (8.5-10.1); Potassium 4.6 mmol/L (3.5-5.1)
[2017-10-16] MEDS: D5W/SOD CHL 0.45% 1,000 ML IV SCH ×2 (08:27→22:35)
[2017-10-16] MEDS: BOOST PLUS 8 ounce PO SCH ×3 (08:27→18:59)
[2017-10-16] MEDS: HYOSCYAMINE SULF 0.125 MG TAB PO PRN (08:27)
[2017-10-16] MEDS: FLORASTOR (S. BOULARDII) 250 MG CAP PO SCH ×2 (10:22→21:17)
[2017-10-16] MEDS: FUROSEMIDE 40 MG TAB PO SCH (10:22)
[2017-10-16] MEDS: PANTOPRAZOLE 40 MG/10 ML VIAL IV SCH (10:22)
[2017-10-16] MEDS: POTASSIUM CHL 10% (20 MEQ/15ML) 15ml ORAL SOLN PO SCH (10:23)
[2017-10-16] MEDS ORDERED: MORPHINE SULFATE 4 MG/ML SYR/VIAL IV PRN (10:45)
[2017-10-16] MEDS: ALBUTEROL SULF 2.5 MG/0.5ML(0.5%) NEB SOLN NEB PRN (11:05)
[2017-10-16] MEDS ORDERED: NALBUPHINE HCL 10 MG/1ml INJECTION IV PRN (13:00)
[2017-10-16] MEDS: MORPHINE SULFATE 8mg/ml INJ SDV IV PRN ×2 (13:29→20:00)
[2017-10-16] MEDS: ALPRAZolam 0.25 MG TAB PO PRN (13:29)
[2017-10-17] MEDS: MORPHINE SULFATE 8mg/ml INJ SDV IV PRN ×5 (02:42→21:38)
[2017-10-17 05:00] VITALS: BP 108/65
[2017-10-17] MEDS: D5W/SOD CHL 0.45% 1,000 ML IV SCH (05:15)
[2017-10-17] MEDS: CHOLESTYRAMINE 4 GM POWDER PO SCH ×4 (05:28→21:38)
[2017-10-17 05:44] LABS: Basophils # (auto) 0.1 uL; Eosinophils # (auto) 0.8 uL; Eosinophils % (auto) 10.5 % (0.0-7.0); Hematocrit 36.2 % (36.0-46.0); Hemoglobin 12.2 g/dL (12.2-16.2); Lymphocytes # (auto) 1.4 uL; Lymphocytes % (auto) 18.8 % (10.0-50.0); Mean Corpuscular Hemoglobin 29.6 pg (28.0-32.0); Mean Corpuscular Hgb Conc. 33.7 g/dL (32.0-36.0); Mean Corpuscular Volume 87.7 fL (80.0-100.0); Monocytes % (auto) 13.3 % (0.0-12.0); Neutrophils # (auto) 4.3 uL; Neutrophils % (auto) 56.4 % (37.0-80.0); Nucleated Red Blood Cells % 0.1 %; Platelet Count (auto) 253 10^3/uL (140-450); Red Blood Cells 4.13 10^6/uL (4.0-5.20); Red Cell Distribution Width 17.4 % (11.8-14.3); White Blood Cell 7.6 10^3/uL (4.4-10.8)
[2017-10-17 06:03] LABS: Calcium 8.8 mg/dL (8.5-10.1); Potassium 4.3 mmol/L (3.5-5.1)
[2017-10-17 06:05] LABS: BUN/Creatinine Ratio 15.3
[2017-10-17 08:00] VITALS: BP 113/69
[2017-10-17] MEDS: BOOST PLUS 8 ounce PO SCH ×3 (08:00→18:21)
[2017-10-17 08:58] VITALS: BP 120/71
[2017-10-17] MEDS: FUROSEMIDE 40 MG TAB PO SCH (09:01)
[2017-10-17] MEDS: PANTOPRAZOLE 40 MG/10 ML VIAL IV SCH (09:01)
[2017-10-17] MEDS: ONDANSETRON ODT 4 MG TAB PO PRN ×2 (09:02→21:38)
[2017-10-17] MEDS ORDERED: POTASSIUM CHL 20 Meq TABLET PO ONE (09:15)
[2017-10-17] MEDS ORDERED: SODIUM CHLORIDE 0.9 % NEB SOLN 3ML NEB ONE (10:50)
[2017-10-17] MEDS: ALBUTEROL SULF 2.5 MG/0.5ML(0.5%) NEB SOLN NEB PRN (11:13)
[2017-10-17] MEDS: FLORASTOR (S. BOULARDII) 250 MG CAP PO SCH ×2 (12:07→21:38)
[2017-10-17 13:00] VITALS: BP 131/50
[2017-10-17 17:00] VITALS: BP 116/68
[2017-10-17 22:00] VITALS: BP 115/63
[2017-10-18] MEDS: MORPHINE SULFATE 8mg/ml INJ SDV IV PRN ×3 (01:50→10:08)
[2017-10-18] MEDS: ONDANSETRON ODT 4 MG TAB PO PRN ×2 (01:52→06:01)
[2017-10-18 05:00] VITALS: BP 106/65
[2017-10-18] MEDS: CHOLESTYRAMINE 4 GM POWDER PO SCH ×3 (06:03→18:20)
[2017-10-18 06:11] LABS: Potassium 4.6 mmol/L (3.5-5.1)
[2017-10-18 06:13] LABS: Basophils # (auto) 0 uL; Basophils % (auto) 0.3 % (0.0-2.0); Eosinophils # (auto) 0.9 uL; Eosinophils % (auto) 11.2 % (0.0-7.0); Hematocrit 39.7 % (36.0-46.0); Hemoglobin 13.3 g/dL (12.2-16.2); Lymphocytes # (auto) 2.1 uL; Lymphocytes % (auto) 27.4 % (10.0-50.0); Mean Corpuscular Hemoglobin 29.3 pg (28.0-32.0); Mean Corpuscular Hgb Conc. 33.5 g/dL (32.0-36.0); Mean Corpuscular Volume 87.6 fL (80.0-100.0); Monocytes % (auto) 13.2 % (0.0-12.0); Neutrophils # (auto) 3.7 uL; Neutrophils % (auto) 47.9 % (37.0-80.0); Nucleated Red Blood Cells % 0.1 %; Platelet Count (auto) 254 10^3/uL (140-450); Red Blood Cells 4.54 10^6/uL (4.0-5.20); Red Cell Distribution Width 16.8 % (11.8-14.3); White Blood Cell 7.7 10^3/uL (4.4-10.8)
[2017-10-18 06:14] LABS: BUN/Creatinine Ratio 19.5; Calcium 9.4 mg/dL (8.5-10.1)
[2017-10-18] MEDS: BOOST PLUS 8 ounce PO SCH ×3 (08:00→18:20)
[2017-10-18 08:43] VITALS: BP 108/64
[2017-10-18] MEDS ORDERED: HYOSCYAMINE SULF 0.125 MG TAB PO PRN (09:45)
[2017-10-18] MEDS ORDERED: ONDANSETRON ODT 4 MG TAB PO PRN (09:45)
[2017-10-18] MEDS: ALBUTEROL SULF 2.5 MG/0.5ML(0.5%) NEB SOLN NEB PRN (09:53)
[2017-10-18] MEDS ORDERED: FLORASTOR (S. BOULARDII) 250 MG CAP PO SCH (10:00)
[2017-10-18] MEDS ORDERED: POTASSIUM CHL 20 Meq TABLET PO SCH (10:00)
[2017-10-18] MEDS ORDERED: PANTOPRAZOLE 40 MG/10 ML VIAL IV SCH (10:00)
[2017-10-18] MEDS ORDERED: FUROSEMIDE 40 MG TAB PO SCH (10:00)
[2017-10-18 13:00] VITALS: BP 110/66
[2017-10-18] MEDS: OXYCODONE W/ ACETAMINOPHEN 5/325MG TABLET PO PRN ×2 (14:26→18:47)
[2017-10-18 14:39] VITALS: BP 110/66
[2017-10-18 17:00] VITALS: BP 112/64
== END 2017-10-18 20:16 | disposition home or self-care (01) | DRG 372 ==
LOC: EDBD 18:05 → ER 18:13 → TELE 18:14 → TELE-EAST 09-25 09:00 → EAST 10-15 10:06
PROVIDERS: ADMIT Nurse Practitioner Family; ATTEND Internal Medicine Pulmonary Disease
DX: A04.72 Enterocolitis due to Clostridium difficile, not specified as recurrent (principal); N17.9 Acute kidney failure, unspecified; E44.0 Moderate protein-calorie malnutrition; E11.22 Type 2 diabetes mellitus with diabetic chronic kidney disease; K56.7 Ileus, unspecified; I13.0 Hypertensive heart and chronic kidney disease with heart failure and stage 1 through stage 4 chronic kidney disease, or unspecified chronic kidney disease; I50.9 Heart failure, unspecified; I25.5 Ischemic cardiomyopathy; N18.2 Chronic kidney disease, stage 2 (mild); E87.6 Hypokalemia; E78.5 Hyperlipidemia, unspecified; E86.0 Dehydration; F41.9 Anxiety disorder, unspecified; I25.10 Atherosclerotic heart disease of native coronary artery without angina pectoris; I25.2 Old myocardial infarction; I70.0 Atherosclerosis of aorta; J44.9 Chronic obstructive pulmonary disease, unspecified; K44.9 Diaphragmatic hernia without obstruction or gangrene; M51.36 Other intervertebral disc degeneration, lumbar region; Z82.49 Family history of ischemic heart disease and other diseases of the circulatory system; Z90.710 Acquired absence of both cervix and uterus; Z87.891 Personal history of nicotine dependence; Z95.1 Presence of aortocoronary bypass graft; Z68.24 Body mass index [BMI] 24.0-24.9, adult
CPT/HCPCS: 36415; 36569; 71045; 74176; 74177; 80048; 80053; 81001; 82150; 83690; 83735; 84484; 85007; 85025; 85027; 87081; 87493; 93005; 94640; 96374; 96375; 96376; C9113; J1885; J2270; J2405; J3490; Q0162

== ENCOUNTER 2017-12-22 15:23 | Inpatient (IN) | payer MEDICARE ==
[~2017-12-22] VITALS: Ht 162.6 cm; Wt 73.5 kg
[2017-12-22] MEDS ORDERED: ONDANSETRON HCL 4 MG/2 ML VIAL IV ONE ×2 (16:15→18:00)
[2017-12-22] MEDS ORDERED: NITROGLYCERIN 0.2MG/HR TOPICAL PATCH TD ONE (16:15)
[2017-12-22] MEDS ORDERED: KETOROLAC TROMETH 30 MG/ML 1ML VIAL IV ONE (16:15)
[2017-12-22 16:22] LABS: Basophils # (auto) 0.2 uL; Basophils % (auto) 1.9 % (0.0-2.0); Eosinophils # (auto) 0.2 uL; Eosinophils % (auto) 2.4 % (0.0-7.0); Hematocrit 45.9 % (36.0-46.0); Hemoglobin 15.6 g/dL (12.2-16.2); Lymphocytes # (auto) 2.7 uL; Lymphocytes % (auto) 30.6 % (10.0-50.0); Mean Corpuscular Hemoglobin 28.9 pg (28.0-32.0); Mean Corpuscular Hgb Conc. 33.9 g/dL (32.0-36.0); Mean Corpuscular Volume 85.3 fL (80.0-100.0); Monocytes # (auto) 1.1 uL; Monocytes % (auto) 12.6 % (0.0-12.0); Neutrophils # (auto) 4.6 uL; Neutrophils % (auto) 52.5 % (37.0-80.0); Nucleated Red Blood Cells % 0.2 %; Platelet Count (auto) 349 10^3/uL (140-450); Red Blood Cells 5.38 10^6/uL (4.0-5.20); Red Cell Distribution Width 15.5 % (11.8-14.3); White Blood Cell 8.7 10^3/uL (4.4-10.8)
[2017-12-22 16:30] LABS: Albumin 4.1 g/dL (3.4-5.0); BUN/Creatinine Ratio 15.6; Bilirubin, Total 0.8 mg/dL (0.2-1.0); Calcium 9.5 mg/dL (8.5-10.1); Total Protein 7.6 g/dL (6.4-8.2)
[2017-12-22] MEDS ORDERED: MORPHINE SULF INJ 2 MG/ML SYRINGE 1ML IV ONE (18:00)
[2017-12-22] MEDS ORDERED: ALPRAZolam 0.25 MG TAB PO PRN (18:30)
[2017-12-22] MEDS ORDERED: MORPHINE SULF INJ 2 MG/ML SYRINGE 1ML IV PRN (18:30)
[2017-12-22] MEDS ORDERED: HYDROcodone-ACET 5/325MG TAB PO PRN (18:30)
[2017-12-22] MEDS ORDERED: ALBUTEROL SULF 2.5 MG/0.5ML(0.5%) NEB SOLN NEB PRN (18:30)
[2017-12-22] MEDS ORDERED: TEMAZEPAM 15 MG CAP PO PRN (18:30)
[2017-12-22] MEDS ORDERED: LACTULOSE 20Gm/30ML SOLN PO PRN (18:30)
[2017-12-22] MEDS ORDERED: ACETAMINOPHEN 500 MG TAB PO PRN (18:30)
[2017-12-22] MEDS ORDERED: ENOXAPARIN SOD 40 MG/0.4 ML SYRINGE SC SCH (18:51)
[2017-12-22] MEDS ORDERED: SODIUM CHLORIDE 0.9% 1,000 ML IV ONE (19:45)
[2017-12-22] MEDS ORDERED: SODIUM CHLORIDE 0.9% 1,000 ML IV SCH (19:45)
[2017-12-22 19:53] VITALS: BP 122/74
[2017-12-22] MEDS: PROMETHAZINE HCL 25 MG/ML 1ML IV PRN (20:41)
[2017-12-22] MEDS: MORPHINE SULF INJ 2 MG/ML SYRINGE 1ML IV PRN ×2 (20:41→21:40)
[2017-12-22] MEDS ORDERED: ENOXAPARIN SOD 60 MG/0.6 ML SYRINGE SC SCH (22:00)
[2017-12-22] MEDS: ATORVASTATIN 20 MG TAB PO SCH (22:00)
[2017-12-22] MEDS: MEXILETINE HYDROCHLORIDE 150 MG CAP PO SCH (22:00)
[2017-12-22] MEDS: RANOLAZINE ER 500 MG TAB PO SCH (22:00)
[2017-12-22] MEDS: CARVEDILOL 3.125 MG TAB PO SCH (22:29)
[2017-12-22] MEDS: IPRATROPIUM BROM 0.5 MG/2.5ML INH SOL NEB SCH (23:58)
[2017-12-22] MEDS: ALBUTEROL SULF 2.5 MG/0.5ML(0.5%) NEB SOLN NEB SCH (23:58)
[2017-12-23] MEDS: traMADol HCL 50 MG TAB PO SCH ×3 (00:35→14:14)
[2017-12-23] MEDS: MORPHINE SULF INJ 2 MG/ML SYRINGE 1ML IV PRN ×5 (01:42→22:07)
[2017-12-23 07:19] LABS: Basophils # (auto) 0.1 uL; Basophils % (auto) 1.8 % (0.0-2.0); Eosinophils # (auto) 0.3 uL; Eosinophils % (auto) 5.1 % (0.0-7.0); Hematocrit 41.3 % (36.0-46.0); Hemoglobin 13.7 g/dL (12.2-16.2); Lymphocytes # (auto) 2.9 uL; Lymphocytes % (auto) 46.9 % (10.0-50.0); Mean Corpuscular Hemoglobin 28.8 pg (28.0-32.0); Mean Corpuscular Hgb Conc. 33.2 g/dL (32.0-36.0); Mean Corpuscular Volume 86.9 fL (80.0-100.0); Monocytes # (auto) 0.9 uL; Neutrophils % (auto) 32.2 % (37.0-80.0); Nucleated Red Blood Cells % 0.2 %; Platelet Count (auto) 293 10^3/uL (140-450); Red Blood Cells 4.75 10^6/uL (4.0-5.20); Red Cell Distribution Width 15.3 % (11.8-14.3); White Blood Cell 6.2 10^3/uL (4.4-10.8)
[2017-12-23 07:46] LABS: Albumin 3.4 g/dL (3.4-5.0); BUN/Creatinine Ratio 16.5; Bilirubin, Total 0.9 mg/dL (0.2-1.0); Calcium 8.6 mg/dL (8.5-10.1); Potassium 3.9 mmol/L (3.5-5.1); Total Protein 6.3 g/dL (6.4-8.2)
[2017-12-23 09:00] VITALS: BP 120/76
[2017-12-23 09:15] VITALS: BP 120/76
[2017-12-23] MEDS ORDERED: [UNRECOGNIZED DRUG - OTHER] PO SCH (10:00)
[2017-12-23] MEDS ORDERED: ENALAPRIL MALEATE 10 MG TAB PO SCH (10:00)
[2017-12-23] MEDS: RANOLAZINE ER 500 MG TAB PO SCH ×2 (10:00→22:01)
[2017-12-23] MEDS ORDERED: FUROSEMIDE 40 MG TAB PO SCH (10:00)
[2017-12-23] MEDS ORDERED: POTASSIUM CHL 20 Meq TABLET PO SCH (10:00)
[2017-12-23] MEDS: MEXILETINE HYDROCHLORIDE 150 MG CAP PO SCH ×2 (10:08→22:01)
[2017-12-23] MEDS: PROMETHAZINE HCL 25 MG/ML 1ML IV PRN ×3 (10:08→22:03)
[2017-12-23] MEDS: PANTOPRAZOLE 40 MG TAB PO SCH (10:12)
[2017-12-23] MEDS: CLOPIDOGREL BISULFATE 75 MG TAB PO SCH (10:13)
[2017-12-23] MEDS: ENOXAPARIN SOD 60 MG/0.6 ML SYRINGE SC SCH (10:14)
[2017-12-23] MEDS: NITROGLYCERIN 0.2MG/HR TOPICAL PATCH TD SCH (10:18)
[2017-12-23] MEDS: CARVEDILOL 3.125 MG TAB PO SCH ×2 (10:20→22:00)
[2017-12-23] MEDS: ASPirin 81 mg TAB PO SCH (10:27)
[2017-12-23] MEDS: IPRATROPIUM BROM 0.5 MG/2.5ML INH SOL NEB SCH ×2 (12:38→18:30)
[2017-12-23] MEDS: ALBUTEROL SULF 2.5 MG/0.5ML(0.5%) NEB SOLN NEB SCH ×2 (12:38→18:30)
[2017-12-23 13:00] VITALS: BP 130/82
[2017-12-23] MEDS: NITROGLYCERIN 0.4 MG SL TAB SL PRN ×2 (16:44→17:12)
[2017-12-23 17:00] VITALS: BP 107/68
[2017-12-23 21:53] VITALS: BP 103/63
[2017-12-23] MEDS: ATORVASTATIN 20 MG TAB PO SCH (22:01)
[2017-12-24] MEDS: IPRATROPIUM BROM 0.5 MG/2.5ML INH SOL NEB SCH ×5 (00:52→23:55)
[2017-12-24] MEDS: ALBUTEROL SULF 2.5 MG/0.5ML(0.5%) NEB SOLN NEB SCH ×5 (00:52→23:55)
[2017-12-24 05:25] VITALS: BP 118/72
[2017-12-24] MEDS: MORPHINE SULF INJ 2 MG/ML SYRINGE 1ML IV PRN (05:36)
[2017-12-24] MEDS: PROMETHAZINE HCL 25 MG/ML 1ML IV PRN ×2 (05:37→20:35)
[2017-12-24] MEDS: traMADol HCL 50 MG TAB PO SCH ×3 (06:00→11:17)
[2017-12-24 06:35] LABS: Basophils # (auto) 0.1 uL; Basophils % (auto) 1.2 % (0.0-2.0); Eosinophils # (auto) 0.4 uL; Eosinophils % (auto) 7.5 % (0.0-7.0); Hematocrit 40.1 % (36.0-46.0); Hemoglobin 13.2 g/dL (12.2-16.2); Mean Corpuscular Hemoglobin 28.2 pg (28.0-32.0); Mean Corpuscular Volume 85.4 fL (80.0-100.0); Monocytes # (auto) 0.7 uL; Monocytes % (auto) 12.3 % (0.0-12.0); Neutrophils # (auto) 2.5 uL; Nucleated Red Blood Cells % 0.2 %; Platelet Count (auto) 273 10^3/uL (140-450); Red Cell Distribution Width 15.5 % (11.8-14.3); White Blood Cell 5.6 10^3/uL (4.4-10.8)
[2017-12-24 06:49] LABS: BUN/Creatinine Ratio 20.2; Calcium 8.4 mg/dL (8.5-10.1); Potassium 3.9 mmol/L (3.5-5.1)
[2017-12-24 09:00] VITALS: BP 113/67
[2017-12-24] MEDS: RANOLAZINE ER 500 MG TAB PO SCH ×2 (09:36→22:18)
[2017-12-24] MEDS: NITROGLYCERIN 0.2MG/HR TOPICAL PATCH TD SCH (09:37)
[2017-12-24] MEDS: CLOPIDOGREL BISULFATE 75 MG TAB PO SCH (09:38)
[2017-12-24] MEDS: ENOXAPARIN SOD 60 MG/0.6 ML SYRINGE SC SCH (09:38)
[2017-12-24] MEDS: PANTOPRAZOLE 40 MG TAB PO SCH (09:38)
[2017-12-24] MEDS: CARVEDILOL 3.125 MG TAB PO SCH ×2 (09:39→21:23)
[2017-12-24] MEDS: ASPirin 81 mg TAB PO SCH (09:39)
[2017-12-24] MEDS: MEXILETINE HYDROCHLORIDE 150 MG CAP PO SCH ×2 (09:40→22:17)
[2017-12-24 13:00] VITALS: BP 104/78
[2017-12-24] MEDS ORDERED: MORPHINE SULFATE 4 MG/ML SYR/VIAL IV PRN (13:15)
[2017-12-24] MEDS: TROLAMINE SALICYLATE 10% TOP CREAM TOP SCH ×2 (14:22→22:00)
[2017-12-24 17:00] VITALS: BP 88/55
[2017-12-24 21:55] VITALS: BP 90/63
[2017-12-24] MEDS: ATORVASTATIN 20 MG TAB PO SCH (22:17)
[2017-12-25 05:07] VITALS: BP 126/82
[2017-12-25] MEDS: traMADol HCL 50 MG TAB PO SCH ×2 (06:00)
[2017-12-25 06:10] LABS: Basophils # (auto) 0.1 uL; Eosinophils # (auto) 0.4 uL; Eosinophils % (auto) 4.8 % (0.0-7.0); Hematocrit 39.7 % (36.0-46.0); Hemoglobin 13.4 g/dL (12.2-16.2); Lymphocytes # (auto) 1.8 uL; Lymphocytes % (auto) 19.4 % (10.0-50.0); Mean Corpuscular Hemoglobin 28.8 pg (28.0-32.0); Mean Corpuscular Hgb Conc. 33.8 g/dL (32.0-36.0); Mean Corpuscular Volume 85.4 fL (80.0-100.0); Monocytes # (auto) 0.6 uL; Neutrophils # (auto) 6.1 uL; Neutrophils % (auto) 67.8 % (37.0-80.0); Nucleated Red Blood Cells % 0.1 %; Platelet Count (auto) 278 10^3/uL (140-450); Red Blood Cells 4.66 10^6/uL (4.0-5.20); Red Cell Distribution Width 15.6 % (11.8-14.3)
[2017-12-25 06:26] LABS: BUN/Creatinine Ratio 24.8; Calcium 8.5 mg/dL (8.5-10.1); Potassium 4.1 mmol/L (3.5-5.1)
[2017-12-25] MEDS: IPRATROPIUM BROM 0.5 MG/2.5ML INH SOL NEB SCH (07:23)
[2017-12-25] MEDS: ALBUTEROL SULF 2.5 MG/0.5ML(0.5%) NEB SOLN NEB SCH (07:23)
[2017-12-25 09:00] VITALS: BP 122/72
[2017-12-25] MEDS: TROLAMINE SALICYLATE 10% TOP CREAM TOP SCH (09:23)
[2017-12-25] MEDS: ASPirin 81 mg TAB PO SCH (09:24)
[2017-12-25] MEDS: PANTOPRAZOLE 40 MG TAB PO SCH (09:24)
[2017-12-25] MEDS: CLOPIDOGREL BISULFATE 75 MG TAB PO SCH (09:24)
[2017-12-25] MEDS: RANOLAZINE ER 500 MG TAB PO SCH (09:24)
[2017-12-25] MEDS: MEXILETINE HYDROCHLORIDE 150 MG CAP PO SCH (09:24)
[2017-12-25] MEDS: CARVEDILOL 3.125 MG TAB PO SCH (09:27)
[2017-12-25] MEDS: NITROGLYCERIN 0.2MG/HR TOPICAL PATCH TD SCH (09:28)
[2017-12-25] MEDS ORDERED: ENOXAPARIN SOD 80 MG/0.8ML SYRINGE SC SCH (10:00)
== END 2017-12-25 12:40 | disposition home or self-care (01) | DRG 205 ==
LOC: EDBD 15:23 → ER 15:25 → TELE 15:26 → TELE-WESTW 12-23 09:10
PROVIDERS: ADMIT Internal Medicine; ATTEND Internal Medicine
DX: M94.0 Chondrocostal junction syndrome [Tietze] (principal); I50.43 Acute on chronic combined systolic (congestive) and diastolic (congestive) heart failure; I13.0 Hypertensive heart and chronic kidney disease with heart failure and stage 1 through stage 4 chronic kidney disease, or unspecified chronic kidney disease; N18.4 Chronic kidney disease, stage 4 (severe); I25.10 Atherosclerotic heart disease of native coronary artery without angina pectoris; Z82.49 Family history of ischemic heart disease and other diseases of the circulatory system; J44.9 Chronic obstructive pulmonary disease, unspecified; K21.9 Gastro-esophageal reflux disease without esophagitis; E83.51 Hypocalcemia; F41.9 Anxiety disorder, unspecified; E78.5 Hyperlipidemia, unspecified; I25.2 Old myocardial infarction; Z90.49 Acquired absence of other specified parts of digestive tract; Z90.710 Acquired absence of both cervix and uterus; Z95.1 Presence of aortocoronary bypass graft; Z84.89 Family history of other specified conditions; Z95.810 Presence of automatic (implantable) cardiac defibrillator; Z83.3 Family history of diabetes mellitus; Z83.511 Family history of glaucoma; Z95.5 Presence of coronary angioplasty implant and graft; Z79.899 Other long term (current) drug therapy; Z79.82 Long term (current) use of aspirin; Z88.8 Allergy status to other drugs, medicaments and biological substances; Z88.5 Allergy status to narcotic agent; Z87.891 Personal history of nicotine dependence
CPT/HCPCS: 36415; 71045; 78582; 80048; 80053; 80061; 82550; 83880; 84484; 85025; 85379; 85652; 86141; 87081; 93005; 93970; 94640; 96374; 96375; 96376; J1885; J2405

== ENCOUNTER 2018-01-05 20:04 | Inpatient (IN) | payer MEDICARE ==
[~2018-01-05] VITALS: Ht 170.2 cm; Wt 57.3 kg
[2018-01-05] MEDS ORDERED: ONDANSETRON HCL 4 MG/2 ML VIAL IV ONE (20:45)
[2018-01-05] MEDS ORDERED: MORPHINE SULFATE 4 MG/ML SYR/VIAL IV ONE ×2 (20:45→23:00)
[2018-01-05 21:58] LABS: Basophils # (auto) 0.1 uL; Basophils % (auto) 0.7 % (0.0-2.0); Eosinophils # (auto) 0.4 uL; Eosinophils % (auto) 4.6 % (0.0-7.0); Hematocrit 37.5 % (36.0-46.0); Hemoglobin 12.3 g/dL (12.2-16.2); Lymphocytes % (auto) 33.1 % (10.0-50.0); Mean Corpuscular Hemoglobin 27.6 pg (28.0-32.0); Mean Corpuscular Hgb Conc. 32.8 g/dL (32.0-36.0); Mean Corpuscular Volume 84.3 fL (80.0-100.0); Monocytes # (auto) 0.8 uL; Monocytes % (auto) 8.8 % (0.0-12.0); Neutrophils # (auto) 4.8 uL; Neutrophils % (auto) 52.8 % (37.0-80.0); Nucleated Red Blood Cells % 0.2 %; Platelet Count (auto) 223 10^3/uL (140-450); Red Blood Cells 4.45 10^6/uL (4.0-5.20); Red Cell Distribution Width 16.2 % (11.8-14.3)
[2018-01-05 22:05] LABS: Alkaline Phosphatase 86 U/L (45-117); Anion Gap 8 (5-15); Aspartate Aminotransferase 24 U/L (15-37); BUN/Creatinine Ratio 16.2; Blood Urea Nitrogen 19 mg/dL (7-18); Carbon Dioxide 19 mmol/L (21-32); Chloride 116 mmol/L (98-107); GFR African American 58 mL/min; GFR Non-African American 48 mL/min; Glucose 89 mg/dL (74-106); Potassium 3.6 mmol/L (3.5-5.1); Sodium 143 mmol/L (136-145)
[2018-01-05 22:06] LABS: Alanine Aminotransferase 20 U/L (13-56); Albumin 3.3 g/dL (3.4-5.0); Bilirubin, Total 0.5 mg/dL (0.2-1.0); Calcium 7.9 mg/dL (8.5-10.1); Magnesium 2.3 mg/dL (1.6-2.6); Total Protein 6.3 g/dL (6.4-8.2)
[2018-01-05] MEDS ORDERED: FUROSEMIDE 20 MG/2 ML VIAL IV ONE (23:45)
[2018-01-06] MEDS ORDERED: ACETAMINOPHEN 500 MG TAB PO PRN (00:15)
[2018-01-06] MEDS ORDERED: NITROGLYCERIN 0.4 MG SL TAB SL PRN (00:15)
[2018-01-06] MEDS ORDERED: ALBUTEROL SULF 2.5 MG/0.5ML(0.5%) NEB SOLN NEB PRN (00:15)
[2018-01-06] MEDS ORDERED: MORPHINE SULF INJ 2 MG/ML SYRINGE 1ML IV PRN ×2 (00:15→23:15)
[2018-01-06] MEDS ORDERED: traMADol HCL 50 MG TAB PO PRN (00:15)
[2018-01-06] MEDS ORDERED: IPRATROPIUM BROM 0.5 MG/2.5ML INH SOL NEB PRN (00:15)
[2018-01-06] MEDS: ONDANSETRON HCL 4 MG/2 ML VIAL IV PRN ×3 (04:03→21:25)
[2018-01-06] MEDS: HYDROcodone-ACET 5/325MG TAB PO PRN ×4 (04:03→17:21)
[2018-01-06] MEDS: LORazepam 0.5 MG TAB PO PRN ×2 (04:08→23:18)
[2018-01-06] MEDS: FUROSEMIDE 40 MG/4 ML VIAL IV SCH (09:30)
[2018-01-06] MEDS: CARVEDILOL 3.125 MG TAB PO SCH ×3 (09:31→21:58)
[2018-01-06] MEDS: ASPirin-EC 81 mg tab PO SCH (09:31)
[2018-01-06 10:14] LABS: Basophils # (auto) 0.2 uL; Eosinophils # (auto) 0.6 uL; Eosinophils % (auto) 7.6 % (0.0-7.0); Hematocrit 40.8 % (36.0-46.0); Hemoglobin 13.4 g/dL (12.2-16.2); Lymphocytes # (auto) 2.9 uL; Lymphocytes % (auto) 34.7 % (10.0-50.0); Mean Corpuscular Hemoglobin 27.8 pg (28.0-32.0); Mean Corpuscular Hgb Conc. 32.8 g/dL (32.0-36.0); Mean Corpuscular Volume 84.7 fL (80.0-100.0); Monocytes # (auto) 0.6 uL; Monocytes % (auto) 7.1 % (0.0-12.0); Neutrophils % (auto) 48.6 % (37.0-80.0); Platelet Count (auto) 220 10^3/uL (140-450); Red Blood Cells 4.82 10^6/uL (4.0-5.20); Red Cell Distribution Width 15.9 % (11.8-14.3); White Blood Cell 8.2 10^3/uL (4.4-10.8)
[2018-01-06 10:36] LABS: BUN/Creatinine Ratio 16.5; Potassium 3.5 mmol/L (3.5-5.1)
[2018-01-06 10:56] VITALS: BP 128/90
[2018-01-06] MEDS: TROLAMINE SALICYLATE 10% TOP CREAM TOP SCH ×2 (11:33→22:00)
[2018-01-06] MEDS: ISOSORBIDE DINITRATE 10 MG TAB PO SCH (17:24)
[2018-01-06 19:00] VITALS: BP 118/74
[2018-01-06] MEDS ORDERED: ATORVASTATIN 20 MG TAB PO SCH (22:00)
[2018-01-06 22:42] VITALS: BP 100/64
[2018-01-07] MEDS: ISOSORBIDE DINITRATE 10 MG TAB PO SCH ×3 (05:12→18:00)
[2018-01-07 05:33] VITALS: BP 109/79
[2018-01-07] MEDS: ONDANSETRON HCL 4 MG/2 ML VIAL IV PRN (05:39)
[2018-01-07 06:00] LABS: Basophils # (auto) 0.1 uL; Basophils % (auto) 1.1 % (0.0-2.0); Eosinophils # (auto) 0.8 uL; Eosinophils % (auto) 10.5 % (0.0-7.0); Hematocrit 38.9 % (36.0-46.0); Hemoglobin 13.2 g/dL (12.2-16.2); Lymphocytes # (auto) 2.1 uL; Lymphocytes % (auto) 27.9 % (10.0-50.0); Mean Corpuscular Hemoglobin 28.6 pg (28.0-32.0); Mean Corpuscular Hgb Conc. 33.9 g/dL (32.0-36.0); Mean Corpuscular Volume 84.3 fL (80.0-100.0); Monocytes # (auto) 0.6 uL; Monocytes % (auto) 7.8 % (0.0-12.0); Neutrophils # (auto) 3.9 uL; Neutrophils % (auto) 52.7 % (37.0-80.0); Nucleated Red Blood Cells % 0.1 %; Platelet Count (auto) 204 10^3/uL (140-450); Red Blood Cells 4.61 10^6/uL (4.0-5.20); Red Cell Distribution Width 16.1 % (11.8-14.3); White Blood Cell 7.5 10^3/uL (4.4-10.8)
[2018-01-07 06:24] LABS: BUN/Creatinine Ratio 19.3; Calcium 8.5 mg/dL (8.5-10.1)
[2018-01-07 08:00] VITALS: BP 125/80
[2018-01-07 08:36] VITALS: BP 125/80
[2018-01-07] MEDS: CARVEDILOL 3.125 MG TAB PO SCH (10:00)
[2018-01-07] MEDS: FUROSEMIDE 40 MG/4 ML VIAL IV SCH (10:00)
[2018-01-07 11:49] VITALS: BP 103/68
[2018-01-07] MEDS: ASPirin-EC 81 mg tab PO SCH (13:07)
[2018-01-07] MEDS: TROLAMINE SALICYLATE 10% TOP CREAM TOP SCH (13:09)
[2018-01-07 17:29] VITALS: BP 118/79
== END 2018-01-07 21:15 | disposition home or self-care (01) | DRG 205 ==
LOC: ER 20:04 → EDBD 20:04 → TELE 20:05 → TELE-CENTR 01-06 18:33
PROVIDERS: ADMIT Nurse Practitioner Family; ATTEND Internal Medicine
DX: M94.0 Chondrocostal junction syndrome [Tietze] (principal); I50.43 Acute on chronic combined systolic (congestive) and diastolic (congestive) heart failure; I13.0 Hypertensive heart and chronic kidney disease with heart failure and stage 1 through stage 4 chronic kidney disease, or unspecified chronic kidney disease; E44.1 Mild protein-calorie malnutrition; Z68.1 Body mass index [BMI] 19.9 or less, adult; N18.3 Chronic kidney disease, stage 3 (moderate); I25.5 Ischemic cardiomyopathy; E83.51 Hypocalcemia; J02.9 Acute pharyngitis, unspecified; I25.10 Atherosclerotic heart disease of native coronary artery without angina pectoris; E78.5 Hyperlipidemia, unspecified; F41.9 Anxiety disorder, unspecified; J44.9 Chronic obstructive pulmonary disease, unspecified; K21.9 Gastro-esophageal reflux disease without esophagitis; Z87.891 Personal history of nicotine dependence; Z82.49 Family history of ischemic heart disease and other diseases of the circulatory system; Z90.710 Acquired absence of both cervix and uterus; Z91.14 Patient's other noncompliance with medication regimen; Z95.1 Presence of aortocoronary bypass graft; I25.2 Old myocardial infarction; Z95.810 Presence of automatic (implantable) cardiac defibrillator; Z79.82 Long term (current) use of aspirin; Z79.899 Other long term (current) drug therapy; Z88.5 Allergy status to narcotic agent; Z90.49 Acquired absence of other specified parts of digestive tract
CPT/HCPCS: 36415; 71045; 80048; 80053; 83735; 83880; 84484; 85025; 87081; 93005; 94640; 96374; 96375; J2405

== ENCOUNTER 2018-01-09 08:00 | Emergency (ER) | payer MEDICARE ==
[~2018-01-09] VITALS: Ht 154.9 cm; Wt 59.0 kg
[2018-01-09 08:34] LABS: Basophils # (auto) 0.1 uL; Basophils % (auto) 0.9 % (0.0-2.0); Eosinophils # (auto) 0.6 uL; Eosinophils % (auto) 4.9 % (0.0-7.0); Hematocrit 43.1 % (36.0-46.0); Hemoglobin 13.9 g/dL (12.2-16.2); Lymphocytes # (auto) 2.3 uL; Lymphocytes % (auto) 18.5 % (10.0-50.0); Mean Corpuscular Hemoglobin 27.4 pg (28.0-32.0); Mean Corpuscular Hgb Conc. 32.2 g/dL (32.0-36.0); Mean Corpuscular Volume 85.2 fL (80.0-100.0); Monocytes # (auto) 0.9 uL; Monocytes % (auto) 7.4 % (0.0-12.0); Neutrophils # (auto) 8.6 uL; Neutrophils % (auto) 68.3 % (37.0-80.0); Platelet Count (auto) 245 10^3/uL (140-450); Red Blood Cells 5.06 10^6/uL (4.0-5.20); Red Cell Distribution Width 16.2 % (11.8-14.3); White Blood Cell 12.6 10^3/uL (4.4-10.8)
[2018-01-09] MEDS ORDERED: methylPREDNISolone SOD SUCC 125 MG/2 ML VL IV ONE (08:45)
[2018-01-09] MEDS ORDERED: ASPirin 81 mg TAB PO ONE (08:45)
[2018-01-09] MEDS ORDERED: ALBUTEROL SULF 2.5 MG/0.5ML(0.5%) NEB SOLN NEB ONE ×2 (08:45→11:45)
[2018-01-09] MEDS ORDERED: IPRATROPIUM BROM 0.5 MG/2.5ML INH SOL NEB ONE (08:45)
[2018-01-09 08:49] LABS: Alanine Aminotransferase 22 U/L (13-56); Albumin 3.2 g/dL (3.4-5.0); Anion Gap 10 (5-15); Aspartate Aminotransferase 31 U/L (15-37); BUN/Creatinine Ratio 18.5; Blood Urea Nitrogen 17 mg/dL (7-18); Calcium 8.4 mg/dL (8.5-10.1); Carbon Dioxide 22 mmol/L (21-32); Chloride 110 mmol/L (98-107); GFR African American 77 mL/min; GFR Non-African American 64 mL/min; Glucose 86 mg/dL (74-106); Potassium 4.4 mmol/L (3.5-5.1); Sodium 142 mmol/L (136-145)
[2018-01-09 08:57] LABS: Alkaline Phosphatase 96 U/L (45-117); Bilirubin, Total 0.7 mg/dL (0.2-1.0); Total Protein 6.7 g/dL (6.4-8.2)
[2018-01-09] MEDS ORDERED: KETOROLAC TROMETH 30 MG/ML 1ML VIAL IV ONE (09:00)
[2018-01-09] MEDS ORDERED: cefTRIAXone SOD 1,000 MG VL IM ONE (09:15)
[2018-01-09] MEDS ORDERED: cefTRIAXone 1GM/10ml IVPUSH 10 ML IV ONE (09:15)
[2018-01-09] MEDS ORDERED: NITROGLYCERIN 0.4 MG SL TAB SL ONE (10:00)
[2018-01-09] MEDS ORDERED: ONDANSETRON ODT 4 MG TAB PO ONE (11:15)
[2018-01-09] MEDS ORDERED: HYDROcodone-ACET 5/325MG TAB PO ONE (11:45)
[2018-01-09 13:56] VITALS: BP 128/79
== END 2018-01-09 14:53 | disposition home or self-care (01) ==
LOC: EDBD 08:00 → ER 08:00
DX: J44.1 Chronic obstructive pulmonary disease with (acute) exacerbation (principal); I25.810 Atherosclerosis of coronary artery bypass graft(s) without angina pectoris; I11.0 Hypertensive heart disease with heart failure; I50.9 Heart failure, unspecified; I25.2 Old myocardial infarction; E78.5 Hyperlipidemia, unspecified; K21.9 Gastro-esophageal reflux disease without esophagitis; Z96.89 Presence of other specified functional implants; Z88.6 Allergy status to analgesic agent; Z90.710 Acquired absence of both cervix and uterus
CPT/HCPCS: 36415; 71045; 80053; 84484; 85025; 94640; 96374; 96375; J0696; J1885; Q0162

== ENCOUNTER 2018-01-10 21:53 | Inpatient (IN) | payer MEDICARE ==
[~2018-01-10] VITALS: Ht 175.3 cm; Wt 58.7 kg
[2018-01-11] MEDS ORDERED: KETOROLAC TROMETH 60MG/2ML VIAL IM ONE
[2018-01-11 00:29] LABS: Basophils # (auto) 0.2 uL; Basophils % (auto) 1.3 % (0.0-2.0); Eosinophils # (auto) 1.5 uL; Eosinophils % (auto) 9.5 % (0.0-7.0); Hematocrit 37.5 % (36.0-46.0); Hemoglobin 12.1 g/dL (12.2-16.2); Lymphocytes # (auto) 1.9 uL; Lymphocytes % (auto) 12.2 % (10.0-50.0); Mean Corpuscular Hemoglobin 27.2 pg (28.0-32.0); Mean Corpuscular Hgb Conc. 32.3 g/dL (32.0-36.0); Mean Corpuscular Volume 84.2 fL (80.0-100.0); Monocytes # (auto) 0.4 uL; Monocytes % (auto) 2.5 % (0.0-12.0); Neutrophils # (auto) 11.6 uL; Neutrophils % (auto) 74.5 % (37.0-80.0); Nucleated Red Blood Cells % 0.1 %; Platelet Count (auto) 232 10^3/uL (140-450); Red Blood Cells 4.45 10^6/uL (4.0-5.20); Red Cell Distribution Width 16.2 % (11.8-14.3); White Blood Cell 15.6 10^3/uL (4.4-10.8)
[2018-01-11 00:37] LABS: Albumin 3.2 g/dL (3.4-5.0); Calcium 8.4 mg/dL (8.5-10.1); Magnesium 2.2 mg/dL (1.6-2.6); Potassium 4.6 mmol/L (3.5-5.1)
[2018-01-11 00:45] LABS: Partial Thromboplastin Time 29.1 sec (23.78-33.04); Prothrombin Time 10.7 sec (9.27-12.13)
[2018-01-11 00:53] LABS: Bilirubin, Total 0.5 mg/dL (0.2-1.0); Total Protein 6.4 g/dL (6.4-8.2)
[2018-01-11] MEDS ORDERED: MORPHINE SULFATE 4 MG/ML SYR/VIAL IV ONE ×2 (01:15→02:30)
[2018-01-11] MEDS ORDERED: ONDANSETRON HCL 4 MG/2 ML VIAL IV ONE (01:15)
[2018-01-11] MEDS ORDERED: FUROSEMIDE 40 MG/4 ML VIAL IV ONE (02:00)
[2018-01-11] MEDS ORDERED: TEMAZEPAM 15 MG CAP PO PRN (03:15)
[2018-01-11] MEDS ORDERED: ACETAMINOPHEN 325 MG TAB PO PRN (03:15)
[2018-01-11] MEDS ORDERED: NITROGLYCERIN 0.4 MG SL TAB SL PRN (03:15)
[2018-01-11] MEDS ORDERED: ATORVASTATIN 20 MG TAB PO ONE (03:30)
[2018-01-11 03:40] VITALS: BP 143/92
[2018-01-11] MEDS ORDERED: ENOXAPARIN SOD 100 MG/1 ML SYRINGE SC ONE (04:00)
[2018-01-11] MEDS: FUROSEMIDE 20 MG/2 ML VIAL IV SCH ×2 (06:27→18:03)
[2018-01-11] MEDS: ONDANSETRON HCL 4 MG/2 ML VIAL IV PRN ×5 (06:57→22:27)
[2018-01-11] MEDS: MORPHINE SULF INJ 2 MG/ML SYRINGE 1ML IV PRN ×5 (06:57→22:27)
[2018-01-11] MEDS: PANTOPRAZOLE 40 MG TAB PO SCH (08:00)
[2018-01-11 08:48] LABS: Urine Bacteria FEW /hpf (None Seen); Urine Blood Negative /uL (Negative); Urine Hyaline Cast MANY /lpf (0 - 2); Urine WBC 1 /hpf (0 - 5)
[2018-01-11] MEDS: ALBUTEROL SULF 2.5 MG/0.5ML(0.5%) NEB SOLN NEB PRN ×2 (09:00→20:35)
[2018-01-11] MEDS ORDERED: POTASSIUM CHL 20 Meq TABLET PO SCH (10:00)
[2018-01-11] MEDS: CLOPIDOGREL BISULFATE 75 MG TAB PO SCH (10:15)
[2018-01-11] MEDS: ENOXAPARIN SOD 100 MG/1 ML SYRINGE SC SCH ×2 (10:15→21:53)
[2018-01-11] MEDS: MEXILETINE HYDROCHLORIDE 150 MG CAP PO SCH ×2 (10:15→21:54)
[2018-01-11] MEDS: CARVEDILOL 3.125 MG TAB PO SCH ×2 (10:15→21:54)
[2018-01-11] MEDS: ASPirin 81 mg TAB PO SCH (10:15)
[2018-01-11 11:02] LABS: Alcohol, Urine < 3.0 mg/dL (0-5); Amphetamine Screen, Urine NEGATIVE (NEGATIVE); Barbiturate Scree,Urine NEGATIVE (NEGATIVE); Benzodiazephine Screen, Urine NEGATIVE (NEGATIVE); Cannabinoid Screen, Urine NEGATIVE (NEGATIVE); Cocaine Screen, Urine NEGATIVE (NEGATIVE); Opiate Scree,Urine NEGATIVE (NEGATIVE); Phencyclidine Screen, Urine NEGATIVE (NEGATIVE)
[2018-01-11] MEDS ORDERED: IOHEXOL 350 MG/ML 100ML IJ ONE (11:53)
[2018-01-11] MEDS ORDERED: MORPHINE SULF INJ 2 MG/ML SYRINGE 1ML IV PRN (12:00)
[2018-01-11] MEDS: RANOLAZINE ER 500 MG TAB PO SCH ×2 (12:06→21:54)
[2018-01-11] MEDS ORDERED: FUROSEMIDE 40 MG/4 ML VIAL IV SCH (12:15)
[2018-01-11 14:37] VITALS: BP 113/94
[2018-01-11 16:20] VITALS: BP 113/94
[2018-01-11 16:33] VITALS: BP 125/87
[2018-01-11] MEDS: ATORVASTATIN 20 MG TAB PO SCH (21:54)
[2018-01-11 22:00] VITALS: BP 137/88
[2018-01-12] MEDS: ONDANSETRON HCL 4 MG/2 ML VIAL IV PRN ×5 (02:34→23:27)
[2018-01-12] MEDS: MORPHINE SULF INJ 2 MG/ML SYRINGE 1ML IV PRN ×5 (02:34→23:26)
[2018-01-12 05:00] VITALS: BP 127/84
[2018-01-12 05:49] LABS: Basophils # (auto) 0.1 uL; Eosinophils # (auto) 0.5 uL; Eosinophils % (auto) 4.1 % (0.0-7.0); Hemoglobin 13.8 g/dL (12.2-16.2); Lymphocytes # (auto) 2.6 uL; Lymphocytes % (auto) 22.5 % (10.0-50.0); Mean Corpuscular Hemoglobin 28.1 pg (28.0-32.0); Mean Corpuscular Hgb Conc. 32.8 g/dL (32.0-36.0); Mean Corpuscular Volume 85.8 fL (80.0-100.0); Monocytes # (auto) 0.7 uL; Monocytes % (auto) 5.7 % (0.0-12.0); Neutrophils # (auto) 7.8 uL; Neutrophils % (auto) 66.7 % (37.0-80.0); Nucleated Red Blood Cells % 0.1 %; Platelet Count (auto) 244 10^3/uL (140-450); Red Cell Distribution Width 16.3 % (11.8-14.3); White Blood Cell 11.7 10^3/uL (4.4-10.8)
[2018-01-12 06:13] LABS: Albumin 3.4 g/dL (3.4-5.0); BUN/Creatinine Ratio 29.7; Bilirubin, Total 1.1 mg/dL (0.2-1.0); Potassium 4.7 mmol/L (3.5-5.1); Total Protein 6.7 g/dL (6.4-8.2)
[2018-01-12] MEDS: PANTOPRAZOLE 40 MG TAB PO SCH ×2 (06:58→10:17)
[2018-01-12] MEDS: FUROSEMIDE 20 MG/2 ML VIAL IV SCH (06:58)
[2018-01-12 08:00] VITALS: BP 117/83
[2018-01-12 09:06] VITALS: BP 117/83
[2018-01-12] MEDS ORDERED: LOSARTAN POTASSIUM 25 MG TAB PO SCH (10:00)
[2018-01-12] MEDS: ASPirin 81 mg TAB PO SCH (10:17)
[2018-01-12] MEDS: CARVEDILOL 3.125 MG TAB PO SCH ×3 (10:19→22:56)
[2018-01-12] MEDS: ENOXAPARIN SOD 100 MG/1 ML SYRINGE SC SCH ×2 (10:20→22:57)
[2018-01-12] MEDS: RANOLAZINE ER 500 MG TAB PO SCH ×2 (10:20→22:57)
[2018-01-12] MEDS: CLOPIDOGREL BISULFATE 75 MG TAB PO SCH (10:20)
[2018-01-12] MEDS: MEXILETINE HYDROCHLORIDE 150 MG CAP PO SCH ×2 (10:20→22:56)
[2018-01-12 12:52] VITALS: BP 104/73
[2018-01-12] MEDS ORDERED: IOHEXOL 350 MG/ML 100ML IJ ONE (14:29)
[2018-01-12 17:15] VITALS: BP 116/73
[2018-01-12] MEDS: ALBUTEROL SULF 2.5 MG/0.5ML(0.5%) NEB SOLN NEB PRN (20:30)
[2018-01-12 21:46] VITALS: BP 101/68
[2018-01-12] MEDS: ATORVASTATIN 20 MG TAB PO SCH (22:56)
[2018-01-13 05:00] VITALS: BP 112/76
[2018-01-13] MEDS: MORPHINE SULF INJ 2 MG/ML SYRINGE 1ML IV PRN ×4 (06:26→20:16)
[2018-01-13] MEDS: PANTOPRAZOLE 40 MG TAB PO SCH (06:30)
[2018-01-13 07:31] LABS: Basophils # (auto) 0.2 uL; Basophils % (auto) 1.6 % (0.0-2.0); Eosinophils # (auto) 0.8 uL; Hematocrit 41.2 % (36.0-46.0); Hemoglobin 13.8 g/dL (12.2-16.2); Lymphocytes % (auto) 21.6 % (10.0-50.0); Mean Corpuscular Hemoglobin 28.2 pg (28.0-32.0); Mean Corpuscular Hgb Conc. 33.4 g/dL (32.0-36.0); Mean Corpuscular Volume 84.3 fL (80.0-100.0); Monocytes # (auto) 0.7 uL; Monocytes % (auto) 7.5 % (0.0-12.0); Neutrophils # (auto) 5.8 uL; Neutrophils % (auto) 61.3 % (37.0-80.0); Nucleated Red Blood Cells % 0.1 %; Platelet Count (auto) 226 10^3/uL (140-450); Red Blood Cells 4.89 10^6/uL (4.0-5.20); Red Cell Distribution Width 16.3 % (11.8-14.3); White Blood Cell 9.4 10^3/uL (4.4-10.8)
[2018-01-13 07:45] LABS: BUN/Creatinine Ratio 27.7; Calcium 8.7 mg/dL (8.5-10.1); Potassium 4.3 mmol/L (3.5-5.1)
[2018-01-13 09:00] VITALS: BP 123/77
[2018-01-13] MEDS: MEXILETINE HYDROCHLORIDE 150 MG CAP PO SCH ×2 (09:25→22:35)
[2018-01-13] MEDS: LOSARTAN POTASSIUM 25 MG TAB PO SCH (09:27)
[2018-01-13] MEDS: ENOXAPARIN SOD 100 MG/1 ML SYRINGE SC SCH ×2 (09:29→22:36)
[2018-01-13] MEDS: ASPirin 81 mg TAB PO SCH (09:30)
[2018-01-13] MEDS: CLOPIDOGREL BISULFATE 75 MG TAB PO SCH (09:30)
[2018-01-13] MEDS: CARVEDILOL 3.125 MG TAB PO SCH ×2 (09:30→22:00)
[2018-01-13] MEDS: ONDANSETRON HCL 4 MG/2 ML VIAL IV PRN (09:31)
[2018-01-13] MEDS ORDERED: FUROSEMIDE 40 MG TAB PO SCH (10:00)
[2018-01-13] MEDS: ALBUTEROL SULF 2.5 MG/0.5ML(0.5%) NEB SOLN NEB PRN ×3 (10:36→22:46)
[2018-01-13] MEDS: RANOLAZINE ER 500 MG TAB PO SCH ×2 (12:21→22:35)
[2018-01-13 17:00] VITALS: BP 103/69
[2018-01-13] MEDS: PROMETHAZINE HCL 25 MG/ML 1ML IV PRN (17:30)
[2018-01-13] MEDS: BUMETANIDE (0.25MG/ML) 4 ML VIAL IV SCH (17:45)
[2018-01-13] MEDS: HYDROcodone-ACET 5/325MG TAB PO PRN (17:46)
[2018-01-13 20:26] VITALS: BP 103/69
[2018-01-13 22:00] VITALS: BP 82/57
[2018-01-13] MEDS: ATORVASTATIN 20 MG TAB PO SCH (22:35)
[2018-01-14] MEDS: HYDROcodone-ACET 5/325MG TAB PO PRN ×2 (01:12→12:10)
[2018-01-14 05:00] VITALS: BP 96/68
[2018-01-14] MEDS: BUMETANIDE (0.25MG/ML) 4 ML VIAL IV SCH ×2 (06:00→18:00)
[2018-01-14] MEDS: PANTOPRAZOLE 40 MG TAB PO SCH (07:03)
[2018-01-14 07:38] LABS: Basophils # (auto) 0.1 uL; Basophils % (auto) 0.7 % (0.0-2.0); Eosinophils # (auto) 0.6 uL; Eosinophils % (auto) 8.3 % (0.0-7.0); Hematocrit 37.5 % (36.0-46.0); Hemoglobin 12.7 g/dL (12.2-16.2); Lymphocytes # (auto) 2.1 uL; Lymphocytes % (auto) 26.3 % (10.0-50.0); Mean Corpuscular Hemoglobin 28.3 pg (28.0-32.0); Mean Corpuscular Hgb Conc. 33.8 g/dL (32.0-36.0); Mean Corpuscular Volume 83.7 fL (80.0-100.0); Monocytes # (auto) 0.6 uL; Monocytes % (auto) 7.8 % (0.0-12.0); Neutrophils # (auto) 4.4 uL; Neutrophils % (auto) 56.9 % (37.0-80.0); Nucleated Red Blood Cells % 0.2 %; Platelet Count (auto) 237 10^3/uL (140-450); Red Blood Cells 4.48 10^6/uL (4.0-5.20); Red Cell Distribution Width 16.5 % (11.8-14.3); White Blood Cell 7.8 10^3/uL (4.4-10.8)
[2018-01-14 08:02] LABS: BUN/Creatinine Ratio 22.6; Calcium 8.3 mg/dL (8.5-10.1); Potassium 4.4 mmol/L (3.5-5.1)
[2018-01-14 08:49] VITALS: BP 101/68
[2018-01-14] MEDS: CARVEDILOL 3.125 MG TAB PO SCH ×2 (10:00→22:40)
[2018-01-14] MEDS: LOSARTAN POTASSIUM 25 MG TAB PO SCH (10:00)
[2018-01-14] MEDS: ENOXAPARIN SOD 100 MG/1 ML SYRINGE SC SCH ×2 (10:21→22:40)
[2018-01-14] MEDS: ASPirin 81 mg TAB PO SCH (10:21)
[2018-01-14] MEDS: CLOPIDOGREL BISULFATE 75 MG TAB PO SCH (10:21)
[2018-01-14] MEDS: MEXILETINE HYDROCHLORIDE 150 MG CAP PO SCH ×2 (10:21→22:40)
[2018-01-14] MEDS: PROMETHAZINE HCL 25 MG/ML 1ML IV PRN ×2 (10:21→19:02)
[2018-01-14] MEDS: RANOLAZINE ER 500 MG TAB PO SCH ×2 (10:34→22:33)
[2018-01-14 12:58] VITALS: BP 96/60
[2018-01-14] MEDS: MORPHINE SULF INJ 2 MG/ML SYRINGE 1ML IV PRN ×3 (14:51→23:34)
[2018-01-14 17:13] VITALS: BP 107/67
[2018-01-14] MEDS: ALBUTEROL SULF 2.5 MG/0.5ML(0.5%) NEB SOLN NEB PRN (18:50)
[2018-01-14 21:27] VITALS: BP 106/66
[2018-01-14] MEDS: ATORVASTATIN 20 MG TAB PO SCH (22:33)
[2018-01-15] MEDS: PROMETHAZINE HCL 25 MG/ML 1ML IV PRN ×3 (03:36→22:45)
[2018-01-15] MEDS: MORPHINE SULF INJ 2 MG/ML SYRINGE 1ML IV PRN ×5 (03:36→22:45)
[2018-01-15 04:46] VITALS: BP 106/72
[2018-01-15] MEDS: BUMETANIDE (0.25MG/ML) 4 ML VIAL IV SCH ×2 (05:13→18:00)
[2018-01-15] MEDS: PANTOPRAZOLE 40 MG TAB PO SCH (06:47)
[2018-01-15 06:55] LABS: Basophils # (auto) 0.1 uL; Basophils % (auto) 0.8 % (0.0-2.0); Eosinophils # (auto) 0.7 uL; Eosinophils % (auto) 9.6 % (0.0-7.0); Hematocrit 40.5 % (36.0-46.0); Hemoglobin 13.4 g/dL (12.2-16.2); Lymphocytes # (auto) 2.1 uL; Mean Corpuscular Hemoglobin 27.8 pg (28.0-32.0); Mean Corpuscular Hgb Conc. 33.1 g/dL (32.0-36.0); Mean Corpuscular Volume 83.9 fL (80.0-100.0); Monocytes # (auto) 0.8 uL; Monocytes % (auto) 10.9 % (0.0-12.0); Neutrophils # (auto) 3.6 uL; Neutrophils % (auto) 49.7 % (37.0-80.0); Nucleated Red Blood Cells % 0.1 %; Platelet Count (auto) 256 10^3/uL (140-450); Red Blood Cells 4.83 10^6/uL (4.0-5.20); White Blood Cell 7.2 10^3/uL (4.4-10.8)
[2018-01-15 07:13] LABS: BUN/Creatinine Ratio 24.1; Calcium 8.4 mg/dL (8.5-10.1)
[2018-01-15 08:39] VITALS: BP 118/69
[2018-01-15] MEDS: ASPirin 81 mg TAB PO SCH (11:32)
[2018-01-15] MEDS: CARVEDILOL 3.125 MG TAB PO SCH ×2 (11:33→21:48)
[2018-01-15] MEDS: LOSARTAN POTASSIUM 25 MG TAB PO SCH (11:34)
[2018-01-15] MEDS: RANOLAZINE ER 500 MG TAB PO SCH ×2 (11:35→21:47)
[2018-01-15] MEDS: CLOPIDOGREL BISULFATE 75 MG TAB PO SCH (11:35)
[2018-01-15] MEDS: Ensure Enlive Chocolate 8oz Bottle PO SCH ×2 (12:00→18:00)
[2018-01-15] MEDS: ALBUTEROL SULF 2.5 MG/0.5ML(0.5%) NEB SOLN NEB PRN (12:21)
[2018-01-15 12:47] VITALS: BP 104/65
[2018-01-15] MEDS: MEXILETINE HYDROCHLORIDE 150 MG CAP PO SCH ×2 (14:06→21:47)
[2018-01-15 17:00] VITALS: BP 100/65
[2018-01-15 21:47] VITALS: BP 82/48
[2018-01-15] MEDS: ATORVASTATIN 20 MG TAB PO SCH (21:47)
[2018-01-15 22:45] VITALS: BP 100/62
[2018-01-16] MEDS: MORPHINE SULF INJ 2 MG/ML SYRINGE 1ML IV PRN ×2 (02:44→06:30)
[2018-01-16] MEDS: ALBUTEROL SULF 2.5 MG/0.5ML(0.5%) NEB SOLN NEB PRN (03:07)
[2018-01-16 04:53] VITALS: BP 105/68
[2018-01-16 05:59] LABS: Basophils # (auto) 0.1 uL; Basophils % (auto) 0.8 % (0.0-2.0); Eosinophils # (auto) 0.7 uL; Eosinophils % (auto) 8.9 % (0.0-7.0); Hematocrit 38.8 % (36.0-46.0); Hemoglobin 13.1 g/dL (12.2-16.2); Lymphocytes # (auto) 2.3 uL; Lymphocytes % (auto) 30.1 % (10.0-50.0); Mean Corpuscular Hemoglobin 28.3 pg (28.0-32.0); Mean Corpuscular Hgb Conc. 33.9 g/dL (32.0-36.0); Mean Corpuscular Volume 83.6 fL (80.0-100.0); Monocytes % (auto) 13.4 % (0.0-12.0); Neutrophils # (auto) 3.6 uL; Neutrophils % (auto) 46.8 % (37.0-80.0); Nucleated Red Blood Cells % 0.1 %; Platelet Count (auto) 245 10^3/uL (140-450); Red Blood Cells 4.64 10^6/uL (4.0-5.20); Red Cell Distribution Width 15.8 % (11.8-14.3); White Blood Cell 7.8 10^3/uL (4.4-10.8)
[2018-01-16 06:16] LABS: BUN/Creatinine Ratio 32.6; Calcium 8.5 mg/dL (8.5-10.1); Potassium 4.6 mmol/L (3.5-5.1)
[2018-01-16] MEDS: BUMETANIDE (0.25MG/ML) 4 ML VIAL IV SCH (06:23)
[2018-01-16] MEDS: PROMETHAZINE HCL 25 MG/ML 1ML IV PRN (06:29)
[2018-01-16] MEDS: PANTOPRAZOLE 40 MG TAB PO SCH (06:30)
[2018-01-16 08:11] VITALS: BP 101/61
[2018-01-16] MEDS: Ensure Enlive Chocolate 8oz Bottle PO SCH ×2 (08:55→13:23)
[2018-01-16 09:12] VITALS: BP 101/61
[2018-01-16] MEDS: LOSARTAN POTASSIUM 25 MG TAB PO SCH (10:00)
[2018-01-16] MEDS ORDERED: ENOXAPARIN SOD 40 MG/0.4 ML SYRINGE SC SCH (10:00)
[2018-01-16] MEDS: ASPirin 81 mg TAB PO SCH (10:31)
[2018-01-16] MEDS: MEXILETINE HYDROCHLORIDE 150 MG CAP PO SCH (10:32)
[2018-01-16] MEDS: RANOLAZINE ER 500 MG TAB PO SCH (10:33)
[2018-01-16] MEDS: CLOPIDOGREL BISULFATE 75 MG TAB PO SCH (10:33)
[2018-01-16] MEDS: CARVEDILOL 3.125 MG TAB PO SCH (10:34)
[2018-01-16 11:19] VITALS: BP 101/61
[2018-01-16 12:32] VITALS: BP 100/54
== END 2018-01-16 17:38 | disposition hospice, home (50) | DRG 280 ==
LOC: EDBD 21:53 → ER 21:56 → TELE 21:57 → TELE-WESTW 01-11 14:35
PROVIDERS: ADMIT Nurse Practitioner; ATTEND Internal Medicine
DX: I21.4 Non-ST elevation (NSTEMI) myocardial infarction (principal); I50.33 Acute on chronic diastolic (congestive) heart failure; J96.20 Acute and chronic respiratory failure, unspecified whether with hypoxia or hypercapnia; I13.0 Hypertensive heart and chronic kidney disease with heart failure and stage 1 through stage 4 chronic kidney disease, or unspecified chronic kidney disease; I50.84 End stage heart failure; E78.5 Hyperlipidemia, unspecified; I08.3 Combined rheumatic disorders of mitral, aortic and tricuspid valves; I25.10 Atherosclerotic heart disease of native coronary artery without angina pectoris; I25.5 Ischemic cardiomyopathy; I27.20 Pulmonary hypertension, unspecified; F41.9 Anxiety disorder, unspecified; I70.0 Atherosclerosis of aorta; J44.9 Chronic obstructive pulmonary disease, unspecified; K21.9 Gastro-esophageal reflux disease without esophagitis; N18.9 Chronic kidney disease, unspecified; Z82.49 Family history of ischemic heart disease and other diseases of the circulatory system; Z83.3 Family history of diabetes mellitus; Z87.891 Personal history of nicotine dependence; Z90.710 Acquired absence of both cervix and uterus; Z91.19 Patient's noncompliance with other medical treatment and regimen; Z95.810 Presence of automatic (implantable) cardiac defibrillator; I25.2 Old myocardial infarction; Z79.82 Long term (current) use of aspirin; Z79.899 Other long term (current) drug therapy; Z88.5 Allergy status to narcotic agent; Z83.511 Family history of glaucoma; Z95.5 Presence of coronary angioplasty implant and graft; Z95.1 Presence of aortocoronary bypass graft
CPT/HCPCS: 36415; 71045; 71275; 80048; 80053; 80307; 81001; 83735; 83880; 84443; 84484; 85025; 85379; 85610; 85730; 87081; 93005; 94640; 94761; 96372; 96374; 96375; 96376; 99291; J0696; J1885; J2405; Q0162

== ENCOUNTER 2018-02-09 19:17 | Inpatient (IN) | payer MEDICARE ==
[~2018-02-09] VITALS: Ht 162.6 cm; Wt 61.8 kg
[2018-02-09] MEDS ORDERED: SODIUM CHLORIDE 0.9% 1,000 ML IV ONE (19:45)
[2018-02-09] MEDS ORDERED: HYDROmorphone HCL 2 MG/ML VL IV ONE (19:45)
[2018-02-09] MEDS ORDERED: ONDANSETRON HCL 4 MG/2 ML VIAL IV ONE (19:45)
[2018-02-09 20:59] LABS: Basophils # (auto) 0.1 uL; Eosinophils # (auto) 0.2 uL; Eosinophils % (auto) 2.1 % (0.0-7.0); Hematocrit 47.9 % (36.0-46.0); Hemoglobin 15.7 g/dL (12.2-16.2); Lymphocytes # (auto) 1.8 uL; Lymphocytes % (auto) 19.8 % (10.0-50.0); Mean Corpuscular Hemoglobin 27.2 pg (28.0-32.0); Mean Corpuscular Hgb Conc. 32.8 g/dL (32.0-36.0); Monocytes # (auto) 0.8 uL; Monocytes % (auto) 8.6 % (0.0-12.0); Neutrophils # (auto) 6.3 uL; Neutrophils % (auto) 68.5 % (37.0-80.0); Nucleated Red Blood Cells % 0.2 %; Platelet Count (auto) 259 10^3/uL (140-450); Red Blood Cells 5.77 10^6/uL (4.0-5.20); White Blood Cell 9.2 10^3/uL (4.4-10.8)
[2018-02-09 21:14] LABS: INR 1.02 (0.9-1.15); Partial Thromboplastin Time 30.2 sec (23.78-33.04); Prothrombin Time 10.9 sec (9.27-12.13)
[2018-02-09 21:21] LABS: Albumin 3.3 g/dL (3.4-5.0); BUN/Creatinine Ratio 13.6; Bilirubin, Total 0.8 mg/dL (0.2-1.0); Calcium 8.4 mg/dL (8.5-10.1); Magnesium 2.1 mg/dL (1.6-2.6); Total Protein 6.6 g/dL (6.4-8.2)
[2018-02-09 23:14] LABS: Urine Bacteria MOD /hpf (None Seen); Urine Blood Negative /uL (Negative); Urine Hyaline Cast MANY /lpf (0 - 2); Urine Mucus FEW (None Seen); Urine Specific Gravity 1.011 (1.001-1.035); Urine WBC 10 /hpf (0 - 5)
[2018-02-10] MEDS ORDERED: HYDROmorphone HCL 2 MG/ML VL IV ONE (01:15)
[2018-02-10] MEDS ORDERED: ACETAMINOPHEN 500 MG TAB PO PRN (03:15)
[2018-02-10] MEDS ORDERED: HYDROcodone-ACET 7.5/325MG TAB PO PRN (03:15)
[2018-02-10] MEDS ORDERED: TEMAZEPAM 15 MG CAP PO PRN (03:15)
[2018-02-10 06:00] VITALS: BP 116/68
[2018-02-10] MEDS: ALBUTEROL SULF 2.5 MG/0.5ML(0.5%) NEB SOLN NEB PRN ×3 (06:00→22:39)
[2018-02-10] MEDS: metroNIDAZOLE 500MG/100ML 100 ML IV SCH ×3 (06:14→22:29)
[2018-02-10] MEDS: OXYCODONE W/ ACETAMINOPHEN 5/325MG TABLET PO PRN ×3 (08:04→21:02)
[2018-02-10] MEDS: ONDANSETRON HCL 4 MG/2 ML VIAL IV PRN ×3 (08:13→21:02)
[2018-02-10] MEDS ORDERED: FUROSEMIDE 40 MG TAB PO SCH (10:00)
[2018-02-10] MEDS: cefTRIAXone 1GM/10ml IVPUSH 10 ML IV SCH (10:20)
[2018-02-10] MEDS: ASPirin-EC 81 mg tab PO SCH (10:21)
[2018-02-10] MEDS: CLOPIDOGREL BISULFATE 75 MG TAB PO SCH (10:21)
[2018-02-10] MEDS: CARVEDILOL 3.125 MG TAB PO SCH ×2 (10:24→22:00)
[2018-02-10 11:14] LABS: Basophils # (auto) 0.1 uL; Basophils % (auto) 1.1 % (0.0-2.0); Eosinophils # (auto) 0.2 uL; Eosinophils % (auto) 1.8 % (0.0-7.0); Hemoglobin 14.2 g/dL (12.2-16.2); Lymphocytes # (auto) 1.5 uL; Lymphocytes % (auto) 14.5 % (10.0-50.0); Mean Corpuscular Hemoglobin 27.3 pg (28.0-32.0); Mean Corpuscular Volume 82.8 fL (80.0-100.0); Monocytes # (auto) 0.8 uL; Monocytes % (auto) 7.7 % (0.0-12.0); Neutrophils # (auto) 7.6 uL; Neutrophils % (auto) 74.9 % (37.0-80.0); Nucleated Red Blood Cells % 0.1 %; Platelet Count (auto) 256 10^3/uL (140-450); Red Blood Cells 5.19 10^6/uL (4.0-5.20); White Blood Cell 10.1 10^3/uL (4.4-10.8)
[2018-02-10 11:27] LABS: BUN/Creatinine Ratio 17.9; Calcium 8.1 mg/dL (8.5-10.1); Potassium 3.6 mmol/L (3.5-5.1)
[2018-02-10 12:31] VITALS: BP 121/70
[2018-02-10] MEDS: SOD CHL 0.45% 1,000 ML IV SCH (14:05)
[2018-02-10 16:59] VITALS: BP 92/58
[2018-02-10 22:00] VITALS: BP 104/60
[2018-02-10] MEDS ORDERED: ATORVASTATIN 20 MG TAB PO SCH (22:00)
[2018-02-10] MEDS: SODIUM BICARBONATE 650 MG TAB PO SCH (22:30)
[2018-02-11] MEDS: ONDANSETRON HCL 4 MG/2 ML VIAL IV PRN ×3 (02:30→14:33)
[2018-02-11] MEDS: OXYCODONE W/ ACETAMINOPHEN 5/325MG TABLET PO PRN ×3 (02:33→14:33)
[2018-02-11] MEDS: SOD CHL 0.45% 1,000 ML IV SCH (02:34)
[2018-02-11 05:00] VITALS: BP 99/61
[2018-02-11] MEDS: metroNIDAZOLE 500MG/100ML 100 ML IV SCH ×2 (06:52→13:58)
[2018-02-11 08:17] LABS: Basophils # (auto) 0 uL; Basophils % (auto) 0.6 % (0.0-2.0); Eosinophils # (auto) 0.4 uL; Eosinophils % (auto) 6.3 % (0.0-7.0); Hematocrit 41.1 % (36.0-46.0); Hemoglobin 13.6 g/dL (12.2-16.2); Lymphocytes % (auto) 14.7 % (10.0-50.0); Mean Corpuscular Hemoglobin 27.6 pg (28.0-32.0); Mean Corpuscular Volume 83.6 fL (80.0-100.0); Monocytes # (auto) 0.6 uL; Monocytes % (auto) 8.1 % (0.0-12.0); Neutrophils % (auto) 70.3 % (37.0-80.0); Platelet Count (auto) 233 10^3/uL (140-450); Red Blood Cells 4.92 10^6/uL (4.0-5.20); Red Cell Distribution Width 17.1 % (11.8-14.3)
[2018-02-11 08:35] VITALS: BP 117/70
[2018-02-11 08:44] LABS: BUN/Creatinine Ratio 24.8; Calcium 8.2 mg/dL (8.5-10.1); Potassium 3.9 mmol/L (3.5-5.1)
[2018-02-11 08:45] LABS: Phosphorus 3.5 mg/dL (2.5-4.90)
[2018-02-11] MEDS: cefTRIAXone 1GM/10ml IVPUSH 10 ML IV SCH (08:51)
[2018-02-11] MEDS: CARVEDILOL 3.125 MG TAB PO SCH (10:00)
[2018-02-11] MEDS: ASPirin-EC 81 mg tab PO SCH (11:32)
[2018-02-11] MEDS: CLOPIDOGREL BISULFATE 75 MG TAB PO SCH (11:33)
[2018-02-11] MEDS: SODIUM BICARBONATE 650 MG TAB PO SCH (11:33)
[2018-02-11 11:45] VITALS: BP 111/58
[2018-02-11 13:03] VITALS: BP 111/58
[2018-02-11] MEDS: ALBUTEROL SULF 2.5 MG/0.5ML(0.5%) NEB SOLN NEB PRN (14:36)
[2018-02-11 16:52] VITALS: BP 110/60
== END 2018-02-11 18:50 | disposition home or self-care (01) | DRG 391 ==
LOC: EDBD 19:17 → ER 19:17 → TELE 19:18 → TELE-WESTW 02-10 08:22
PROVIDERS: ADMIT Nurse Practitioner Family; ATTEND Internal Medicine
DX: R19.7 Diarrhea, unspecified (principal); N17.0 Acute kidney failure with tubular necrosis; N30.00 Acute cystitis without hematuria; I13.0 Hypertensive heart and chronic kidney disease with heart failure and stage 1 through stage 4 chronic kidney disease, or unspecified chronic kidney disease; E44.1 Mild protein-calorie malnutrition; E87.2 Acidosis; E11.22 Type 2 diabetes mellitus with diabetic chronic kidney disease; E78.5 Hyperlipidemia, unspecified; E86.0 Dehydration; F41.9 Anxiety disorder, unspecified; I25.10 Atherosclerotic heart disease of native coronary artery without angina pectoris; I50.9 Heart failure, unspecified; J44.9 Chronic obstructive pulmonary disease, unspecified; K21.9 Gastro-esophageal reflux disease without esophagitis; N18.3 Chronic kidney disease, stage 3 (moderate); Z82.49 Family history of ischemic heart disease and other diseases of the circulatory system; Z87.891 Personal history of nicotine dependence; Z90.710 Acquired absence of both cervix and uterus; Z95.0 Presence of cardiac pacemaker; Z95.1 Presence of aortocoronary bypass graft; Z68.23 Body mass index [BMI] 23.0-23.9, adult
CPT/HCPCS: 36415; 71045; 74176; 80048; 80053; 81001; 82150; 83690; 83735; 84100; 84484; 85025; 85610; 85730; 87081; 87086; 93005; 94640; 96361; 96374; 96375; 96376; J0696; J2405; J3490

== ENCOUNTER 2018-02-18 16:18 | Inpatient (IN) | payer MEDICARE ==
[~2018-02-18] VITALS: Ht 162.6 cm; Wt 60.2 kg
[2018-02-18] MEDS ORDERED: SODIUM CHLORIDE 0.9% 1,000 ML IVB ONE (17:26)
[2018-02-18] MEDS ORDERED: ASPirin 81 mg TAB PO ONE (17:30)
[2018-02-18 17:56] LABS: Basophils # (auto) 0.1 uL; Basophils % (auto) 0.7 % (0.0-2.0); Eosinophils # (auto) 0.3 uL; Eosinophils % (auto) 3.9 % (0.0-7.0); Hematocrit 41.8 % (36.0-46.0); Hemoglobin 13.5 g/dL (12.2-16.2); Lymphocytes # (auto) 2.4 uL; Mean Corpuscular Hgb Conc. 32.3 g/dL (32.0-36.0); Mean Corpuscular Volume 83.7 fL (80.0-100.0); Monocytes % (auto) 11.9 % (0.0-12.0); Neutrophils % (auto) 56.5 % (37.0-80.0); Nucleated Red Blood Cells % 0.2 %; Platelet Count (auto) 310 10^3/uL (140-450); Red Blood Cells 4.99 10^6/uL (4.0-5.20); Red Cell Distribution Width 17.3 % (11.8-14.3); White Blood Cell 8.8 10^3/uL (4.4-10.8)
[2018-02-18 18:10] LABS: INR 0.97 (0.9-1.15); Partial Thromboplastin Time 29.6 sec (23.78-33.04); Prothrombin Time 10.4 sec (9.27-12.13)
[2018-02-18 18:13] LABS: Albumin 3.2 g/dL (3.4-5.0); BUN/Creatinine Ratio 28.6; Magnesium 2.3 mg/dL (1.6-2.6); Potassium 4.5 mmol/L (3.5-5.1)
[2018-02-18 18:18] LABS: Bilirubin, Total 0.4 mg/dL (0.2-1.0); Total Protein 6.3 g/dL (6.4-8.2)
[2018-02-18] MEDS ORDERED: ONDANSETRON HCL 4 MG/2 ML VIAL IV ONE (19:30)
[2018-02-18] MEDS ORDERED: MORPHINE SULFATE 4 MG/ML SYR/VIAL IV ONE (19:30)
[2018-02-19] VITALS (7 sets, daily range): BP systolic 91–107; BP diastolic 56–63
[2018-02-19] MEDS ORDERED: MORPHINE SULFATE 4 MG/ML SYR/VIAL IV PRN (04:00)
[2018-02-19] MEDS ORDERED: NITROGLYCERIN 0.4 MG SL TAB SL PRN (04:00)
[2018-02-19] MEDS: ALPRAZolam 0.25 MG TAB PO PRN (05:41)
[2018-02-19] MEDS: ONDANSETRON HCL 4 MG/2 ML VIAL IV PRN ×2 (05:42→21:12)
[2018-02-19] MEDS: CARVEDILOL 3.125 MG TAB PO SCH ×2 (08:41→18:00)
[2018-02-19] MEDS: ALBUTEROL SULF 2.5 MG/0.5ML(0.5%) NEB SOLN NEB PRN (08:52)
[2018-02-19] MEDS: CLOPIDOGREL BISULFATE 75 MG TAB PO SCH (10:50)
[2018-02-19] MEDS: ASPirin-EC 81 mg tab PO SCH (10:50)
[2018-02-19] MEDS: traMADol HCL 50 MG TAB PO PRN (21:12)
[2018-02-19] MEDS: ATORVASTATIN 20 MG TAB PO SCH (21:44)
[2018-02-19] MEDS: HYDROcodone-ACET 5/325MG TAB PO PRN (21:45)
[2018-02-20] MEDS: ALPRAZolam 0.25 MG TAB PO PRN ×2 (00:35→20:43)
[2018-02-20] MEDS: ONDANSETRON HCL 4 MG/2 ML VIAL IV PRN ×4 (00:35→20:44)
[2018-02-20] MEDS: traMADol HCL 50 MG TAB PO PRN ×4 (00:35→20:44)
[2018-02-20] MEDS: HYDROcodone-ACET 5/325MG TAB PO PRN ×3 (02:35→23:17)
[2018-02-20] MEDS: ALBUTEROL SULF 2.5 MG/0.5ML(0.5%) NEB SOLN NEB PRN (02:36)
[2018-02-20 05:00] VITALS: BP 97/66
[2018-02-20] MEDS: CARVEDILOL 3.125 MG TAB PO SCH ×2 (08:01→17:53)
[2018-02-20 08:51] VITALS: BP 95/60
[2018-02-20] MEDS: ASPirin-EC 81 mg tab PO SCH (09:29)
[2018-02-20] MEDS: CLOPIDOGREL BISULFATE 75 MG TAB PO SCH (09:29)
[2018-02-20] MEDS ORDERED: PANTOPRAZOLE 40 MG TAB PO ONE (10:15)
[2018-02-20] MEDS: METOCLOPRAMIDE HCL 10 MG TAB PO SCH ×3 (11:38→20:43)
[2018-02-20 13:00] VITALS: BP 92/57
[2018-02-20 17:52] VITALS: BP 97/55
[2018-02-20] MEDS: ATORVASTATIN 20 MG TAB PO SCH (20:44)
[2018-02-20 21:35] VITALS: BP 93/54
[2018-02-21] MEDS: traMADol HCL 50 MG TAB PO PRN ×2 (02:04→09:21)
[2018-02-21] MEDS: ONDANSETRON HCL 4 MG/2 ML VIAL IV PRN ×3 (02:04→09:22)
[2018-02-21 04:30] VITALS: BP 101/56
[2018-02-21] MEDS: METOCLOPRAMIDE HCL 10 MG TAB PO SCH ×2 (05:11→12:12)
[2018-02-21] MEDS: HYDROcodone-ACET 5/325MG TAB PO PRN (05:12)
[2018-02-21 06:14] LABS: Basophils # (auto) 0.1 uL; Eosinophils # (auto) 0.5 uL; Eosinophils % (auto) 8.1 % (0.0-7.0); Hematocrit 38.3 % (36.0-46.0); Hemoglobin 12.5 g/dL (12.2-16.2); Lymphocytes # (auto) 1.7 uL; Lymphocytes % (auto) 26.5 % (10.0-50.0); Mean Corpuscular Hemoglobin 27.4 pg (28.0-32.0); Mean Corpuscular Hgb Conc. 32.6 g/dL (32.0-36.0); Mean Corpuscular Volume 84.1 fL (80.0-100.0); Monocytes # (auto) 0.7 uL; Monocytes % (auto) 11.1 % (0.0-12.0); Neutrophils # (auto) 3.4 uL; Neutrophils % (auto) 53.3 % (37.0-80.0); Nucleated Red Blood Cells % 0.1 %; Platelet Count (auto) 299 10^3/uL (140-450); Red Blood Cells 4.56 10^6/uL (4.0-5.20); Red Cell Distribution Width 17.8 % (11.8-14.3); White Blood Cell 6.4 10^3/uL (4.4-10.8)
[2018-02-21 06:41] LABS: BUN/Creatinine Ratio 34.5; Potassium 4.7 mmol/L (3.5-5.1)
[2018-02-21 09:20] VITALS: BP 108/81
[2018-02-21] MEDS: ASPirin-EC 81 mg tab PO SCH (09:20)
[2018-02-21] MEDS: CLOPIDOGREL BISULFATE 75 MG TAB PO SCH (09:20)
[2018-02-21] MEDS: CARVEDILOL 3.125 MG TAB PO SCH (09:20)
[2018-02-21] MEDS ORDERED: PANTOPRAZOLE 40 MG TAB PO SCH (10:00)
[2018-02-21 11:51] VITALS: BP 95/56
== END 2018-02-21 16:35 | disposition hospice, home (50) | DRG 303 ==
LOC: EDBD 16:18 → ER 16:24 → TELE 16:25 → TELE-EAST 02-19 04:44
PROVIDERS: ADMIT Nurse Practitioner Family; ATTEND Internal Medicine
DX: I25.110 Atherosclerotic heart disease of native coronary artery with unstable angina pectoris (principal); I13.0 Hypertensive heart and chronic kidney disease with heart failure and stage 1 through stage 4 chronic kidney disease, or unspecified chronic kidney disease; I25.5 Ischemic cardiomyopathy; N18.3 Chronic kidney disease, stage 3 (moderate); E11.22 Type 2 diabetes mellitus with diabetic chronic kidney disease; E78.5 Hyperlipidemia, unspecified; F32.9 Major depressive disorder, single episode, unspecified; F41.9 Anxiety disorder, unspecified; G89.29 Other chronic pain; J44.9 Chronic obstructive pulmonary disease, unspecified; K21.9 Gastro-esophageal reflux disease without esophagitis; Z51.5 Encounter for palliative care; Z82.49 Family history of ischemic heart disease and other diseases of the circulatory system; Z86.19 Personal history of other infectious and parasitic diseases; Z87.891 Personal history of nicotine dependence; Z90.710 Acquired absence of both cervix and uterus; Z95.1 Presence of aortocoronary bypass graft; Z95.810 Presence of automatic (implantable) cardiac defibrillator; Z88.5 Allergy status to narcotic agent; Z90.49 Acquired absence of other specified parts of digestive tract
CPT/HCPCS: 36415; 71045; 80048; 80053; 83735; 83880; 84443; 84484; 85025; 85610; 85730; 87081; 93005; 94640; 94761; 96361; 96374; 96375; J2405

== ENCOUNTER 2018-09-11 22:02 | Inpatient (IN) | payer MEDICARE, MEDICAID | END 2018-09-20 16:20 | disposition home or self-care (01) | LOC: CENTRAL 09-17 10:35 → TELE 09-12 05:58 → TELE-CENTR 09-12 11:58 → ER 22:02 | PROC: 0DJ08ZZ Inspection of Upper Intestinal Tract, Via Natural or Artificial Opening Endoscopic (ICD-10-PCS; principal; 2018-09-16 11:25) | DX: I13.0 Hypertensive heart and chronic kidney disease with heart failure and stage 1 through stage 4 chronic kidney disease, or unspecified chronic kidney disease (principal); I50.23 Acute on chronic systolic (congestive) heart failure; N39.0 Urinary tract infection, site not specified; A04.72 Enterocolitis due to Clostridium difficile, not specified as recurrent; F11.20 Opioid dependence, uncomplicated; E86.0 Dehydration; K52.9 Noninfective gastroenteritis and colitis, unspecified; R74.8 Abnormal levels of other serum enzymes; G89.29 Other chronic pain; I42.9 Cardiomyopathy, unspecified; N18.3 Chronic kidney disease, stage 3 (moderate); E11.22 Type 2 diabetes mellitus with diabetic chronic kidney disease; Z98.61 Coronary angioplasty status; Z95.1 Presence of aortocoronary bypass graft; I25.10 Atherosclerotic heart disease of native coronary artery without angina pectoris; I25.2 Old myocardial infarction; K29.70 Gastritis, unspecified, without bleeding ==

== ENCOUNTER 2018-11-05 10:01 | Inpatient (IN) | payer MEDICARE, MEDICAID ==
[~2018-11-05] VITALS: Ht 162.6 cm; Wt 63.7 kg
[~2018-11-05 10:01] MED LIST changes: +ENA2.5T PO; -ENTRESTO; +HYDR2TAB58 PO; +LORA-654 PO; -MEX150C PO; +ONDA4TAB5 PO; +PANT40T PO; -RANI-226; +SUCR1TAB38 OR; +TEMA30CA PO; -TRAM50TA2 PO
[2018-11-05 10:52] LABS: Basophils # (auto) 0.1 uL; Eosinophils # (auto) 0 uL; Eosinophils % (auto) 0.3 % (0.0-7.0); Hemoglobin 15.2 g/dL (12.2-16.2); Lymphocytes # (auto) 1.8 uL; Lymphocytes % (auto) 13.7 % (10.0-50.0); Mean Corpuscular Hemoglobin 30.9 pg (28.0-32.0); Mean Corpuscular Hgb Conc. 33.7 g/dL (32.0-36.0); Mean Corpuscular Volume 91.9 fL (80.0-100.0); Monocytes # (auto) 1.2 uL; Monocytes % (auto) 9.2 % (0.0-12.0); Neutrophils # (auto) 9.7 uL; Neutrophils % (auto) 75.8 % (37.0-80.0); Platelet Count (auto) 265 10^3/uL (140-450); Red Cell Distribution Width 14.6 % (11.8-14.3); White Blood Cell 12.8 10^3/uL (4.4-10.8)
[2018-11-05] MEDS ORDERED: SODIUM CHLORIDE 0.9% 1,000 ML IV ONE (11:02)
[2018-11-05 11:12] LABS: Albumin 3.4 g/dL (3.4-5.0); Calcium 8.4 mg/dL (8.5-10.1); Magnesium 2.2 mg/dL (1.6-2.6); Potassium 3.9 mmol/L (3.5-5.1)
[2018-11-05] MEDS ORDERED: PIPERACILLIN-TAZOB 3.375GM 100 ML IV ONE (11:15)
[2018-11-05] MEDS ORDERED: ASPirin 81 mg TAB PO ONE (11:15)
[2018-11-05 11:17] LABS: Bilirubin, Total 1.7 mg/dL (0.2-1.0); Total Protein 6.8 g/dL (6.4-8.2)
[2018-11-05 12:07] LABS: INR 0.95 (0.9-1.15); Partial Thromboplastin Time 31.9 sec (23.64-32.05)
[2018-11-05] MEDS ORDERED: NITROGLYCERIN 0.4 MG SL TAB SL PRN (12:15)
[2018-11-05] MEDS ORDERED: FUROSEMIDE 40 MG/4 ML VIAL IV ONE (12:15)
[2018-11-05] MEDS ORDERED: MORPHINE SULF INJ 2 MG/ML SYRINGE 1ML IV PRN (12:15)
[2018-11-05] MEDS ORDERED: ACETAMINOPHEN 500 MG TAB PO PRN (12:15)
[2018-11-05] MEDS: HYDROcodone-ACET 5/325MG TAB PO PRN ×2 (12:43→18:55)
[2018-11-05] MEDS: AZITHROMYCIN 500MG/ 250ML 250 ML IV ONE ×2 (12:44→14:13)
[2018-11-05] MEDS: cefTRIAXone 1GM/50ML D5W 50 ML IV ONE ×2 (12:44→12:55)
[2018-11-05] MEDS: ONDANSETRON HCL 4 MG/2 ML VIAL IV PRN ×2 (12:55→18:55)
--- NOTE | 2018-11-05 13:10 | NUR ---
Telemetry admit from ER [facility] admitted to Telemetry unit after SBAR received. Patient oriented to primary RN, unit, room, bed, and unit policies regarding patient care and visiting hours. Patient now on continuous telemetry monitoring, tele box # 32. Patient placed on bedside oxygen, weighed by bedscale and encouraged to call if they need something. All questions and concerns addressed, patient verbalized understanding.
[2018-11-05 13:35] VITALS: BP 125/73
[2018-11-05 13:36] VITALS: BP 125/73
[2018-11-05] MEDS: IPRATROPIUM BROM 0.5 MG/2.5ML INH SOL NEB PRN ×2 (14:07→18:19)
[2018-11-05] MEDS: LEVALBUTEROL HCL 1.25 MG/3 ML NEB NEB PRN ×2 (14:07→18:18)
[2018-11-05 14:12] VITALS: BP 125/73
--- NOTE | 2018-11-05 15:00 | NUR ---
IV line IV line got dislodged as as patient ambulated to bathroom. Patient states she is a hard stick and it usually takes multiple attempts to get IV access. Will follow up with hospitalist to get midline order.
--- NOTE | 2018-11-05 15:50 | NUR ---
Midline Placement Patient educated on need for midline placement. All risks and benefits explained and all questions and concerns addresses prior to procedure. 22g/8cm midline inserted via right brachial vein using Ultrasound. Sterile technique utilized. Blood return obtained from single lumen and flushed easily with NS using proper technique. Midline secured with saline lock; biodisc and occlusive dressing applied. Primary RN notified. Midline lot #[id number].
[2018-11-05 17:00] VITALS: BP 104/65
--- NOTE | 2018-11-05 18:55 | NUR ---
Patient sitting up in bed eating supper. Will endorse care to manufacturing shift supervisor RN.
[2018-11-05 19:02] LABS: Urine Bacteria FEW /hpf (None Seen); Urine Blood Negative /uL (Negative); Urine Hyaline Cast FEW /lpf (0 - 2); Urine Specific Gravity 1.006 (1.001-1.035); Urine WBC 1 /hpf (0 - 5)
--- NOTE | 2018-11-05 19:30 | NUR ---
OPENING NOTE REPORT RECEIVED FROM DAY SHIFT RN PATIENT IS SLEEPING, VISIBLE RISE AND FALL OF CHEST NOTED. FALL PRECAUTIONS/BED EXIT ALARM ON. MIDLINE TO RIGHT UPPER ARM NOTED. CALL LIGHT WITHIN REACH. WILL MONITOR Q1H PRN THROUGHOUT SHIFT.
[2018-11-05] MEDS: CARVEDILOL 3.125 MG TAB PO SCH (21:26)
[2018-11-05] MEDS: FAMOTIDINE (10MG/ML) 2ML VL IV SCH (21:26)
[2018-11-05] MEDS: RANOLAZINE ER 500 MG TAB PO SCH (21:26)
[2018-11-05 22:32] VITALS: BP 106/58
[2018-11-06] MEDS: ONDANSETRON HCL 4 MG/2 ML VIAL IV PRN ×3 (01:29→15:11)
[2018-11-06] MEDS: HYDROcodone-ACET 5/325MG TAB PO PRN (01:30)
[2018-11-06] MEDS: LEVALBUTEROL HCL 1.25 MG/3 ML NEB NEB PRN ×3 (02:38→19:30)
[2018-11-06] MEDS: IPRATROPIUM BROM 0.5 MG/2.5ML INH SOL NEB PRN ×3 (02:38→19:30)
[2018-11-06 05:33] VITALS: BP 95/60
[2018-11-06 06:21] LABS: Basophils # (auto) 0 uL; Basophils % (auto) 0.4 % (0.0-2.0); Eosinophils # (auto) 0.3 uL; Eosinophils % (auto) 4.9 % (0.0-7.0); Hematocrit 40.9 % (36.0-46.0); Hemoglobin 13.9 g/dL (12.2-16.2); Lymphocytes # (auto) 1.3 uL; Lymphocytes % (auto) 20.9 % (10.0-50.0); Mean Corpuscular Hemoglobin 31.4 pg (28.0-32.0); Mean Corpuscular Volume 92.4 fL (80.0-100.0); Monocytes # (auto) 0.4 uL; Monocytes % (auto) 5.9 % (0.0-12.0); Neutrophils # (auto) 4.2 uL; Neutrophils % (auto) 67.9 % (37.0-80.0); Nucleated Red Blood Cells % 0.1 %; Platelet Count (auto) 211 10^3/uL (140-450); Red Blood Cells 4.42 10^6/uL (4.0-5.20); Red Cell Distribution Width 14.8 % (11.8-14.3); White Blood Cell 6.2 10^3/uL (4.4-10.8)
[2018-11-06 06:51] LABS: Albumin 2.8 g/dL (3.4-5.0); Calcium 8.2 mg/dL (8.5-10.1); Potassium 3.5 mmol/L (3.5-5.1)
[2018-11-06 06:54] LABS: BUN/Creatinine Ratio 20.7; Bilirubin, Total 0.7 mg/dL (0.2-1.0)
--- NOTE | 2018-11-06 07:00 | NUR ---
CLOSING NOTE PATIENT SLEEPING AT THIS TIME. NO S/S OF DISTRESS NOTED CALL LIGHT WITHIN REACH WILL ENDORSE CARE TO AM NURSE
--- NOTE | 2018-11-06 07:35 | NUR ---
Opening Shift Note Assumed care of patient, awake and alert lying in bed. No S/S of distress/SOB or pain. Oxygen 2L via nasal canula. Instructed on POC and to call for assist PRN, will continue to monitor for changes Q1hr and PRN.
[2018-11-06 08:00] VITALS: BP 106/66
[2018-11-06] MEDS: MORPHINE SULF INJ 2 MG/ML SYRINGE 1ML IV PRN ×3 (08:44→21:19)
[2018-11-06] MEDS ORDERED: cefTRIAXone 1GM/50ML D5W 50 ML IV SCH (09:00)
[2018-11-06] MEDS: FAMOTIDINE (10MG/ML) 2ML VL IV SCH (09:19)
[2018-11-06] MEDS: ASPirin 81 mg TAB PO SCH (09:20)
[2018-11-06] MEDS: RANOLAZINE ER 500 MG TAB PO SCH ×2 (09:20→21:29)
[2018-11-06] MEDS: CARVEDILOL 3.125 MG TAB PO SCH ×2 (09:21→21:30)
[2018-11-06] MEDS ORDERED: AZITHROMYCIN 500MG/ 250ML 250 ML IV SCH (10:00)
[2018-11-06] MEDS ORDERED: FUROSEMIDE 20 MG/2 ML VIAL IV SCH (10:00)
[2018-11-06 12:00] VITALS: BP 97/55
--- NOTE | 2018-11-06 12:00 | NUR ---
Rounding Hospitalist in to see patient.
[2018-11-06 12:45] LABS: Alcohol, Urine < 3.0 mg/dL (0-5); Amphetamine Screen, Urine POSITIVE (NEGATIVE); Barbiturate Scree,Urine NEGATIVE (NEGATIVE); Benzodiazephine Screen, Urine POSITIVE (NEGATIVE); Cannabinoid Screen, Urine NEGATIVE (NEGATIVE); Cocaine Screen, Urine NEGATIVE (NEGATIVE); Opiate Scree,Urine NEGATIVE (NEGATIVE); Phencyclidine Screen, Urine NEGATIVE (NEGATIVE)
--- NOTE | 2018-11-06 14:30 | NUR ---
Patient's own medications taken to the pharmacy.
--- NOTE | 2018-11-06 16:37 | NUR ---
assessment Patient is a 73 year old female who is alert and oriented. Prior to admission patient lived home with her caregiver and functioned with assistance. Per patient she will return home to her prior living arrangements post discharge. Patient has home 02, hospital bed, fww and a cane. Patient informed me she was on service with [facility] prior to admission. I informed patient she has a right to speak to a nursing home social worker regarding all care. I informed patient she has a right to participate in any and all discharge planning. Patient is aware of visiting hours on the hospital floor. I informed patient she has a right to privacy. Patient does not have a POA and advanced directive. I have offered patient information on POA and advanced directives. I informed the patient the advantages and benefits of having an Advanced Directive. Patient verbalized understanding and agreed to discharge plan. Per consult patient states hospice is not coming to see her as ordered and would like a new hospice company on dc. Patient informed me her hospice nurse has not showed up this week. Patient is willing to talk with [facility] administrator. I have contacted Emma from [facility]. Per Emma she will meet with patient at bedside. Addendum: 11/06/18 at 1640 by Lillie HDEZ Amended: Links added.
[2018-11-06 17:00] VITALS: BP 115/67
[2018-11-06 18:00] VITALS: BP 105/63
--- NOTE | 2018-11-06 19:40 | NUR ---
Respiratory note: MED NEB TX GIVEN VIA MASK, TOLERATED WELL. NO ADVERSE REACTIONS NOTED. WILL CONTINUE TO MONITOR.
--- NOTE | 2018-11-06 20:17 | NUR ---
PAIN PT STATES 10/10 GENERALIZED PAIN AND IS REQUESTING MORPHINE BP ASSESSED AND IS AT 105/60 WILL MEDICATE ORDERED BY
--- NOTE | 2018-11-06 20:25 | NUR ---
WENT TO FLUSH MIDLINE. TOTAL RESISTANCE, UNABLE TO FLUSH WILL WASTE MORPHINE THAT WAS PULLED WILL ATTEMPT A PERIPHERAL LINE
--- NOTE | 2018-11-06 21:00 | NUR ---
IV insertion IV access obtained, via clean sterile technique by inserting 22 gauge catheter at LEFT WRIST after 1 attempt(s). IV secured properly. No trauma to site. Patient tolerated well. NOTE:
[2018-11-06] MEDS: FAMOTIDINE 20 MG TAB PO SCH (21:29)
[2018-11-06] MEDS: POTASSIUM CHL 10 Meq TABLET PO SCH (21:29)
[2018-11-06] MEDS: FUROSEMIDE 20 MG/2 ML VIAL IV SCH (21:30)
[2018-11-07] MEDS: ONDANSETRON HCL 4 MG/2 ML VIAL IV PRN ×5 (01:26→22:57)
[2018-11-07] MEDS: MORPHINE SULF INJ 2 MG/ML SYRINGE 1ML IV PRN ×6 (01:27→22:57)
[2018-11-07 05:20] VITALS: BP 111/74
--- NOTE | 2018-11-07 06:59 | NUR ---
CLOSING NOTE PATIENT IS SLEEPING COMFORTABLY IN BED, NO S/S OF DISTRESS NOTED. FALL PRECAUTIONS IN PLACE, CALL LIGHT WITHIN REACH WILL ENDORSE CARE TO AM NURSE
[2018-11-07 07:06] LABS: BUN/Creatinine Ratio 24.5; Calcium 8.4 mg/dL (8.5-10.1); Potassium 3.9 mmol/L (3.5-5.1)
--- NOTE | 2018-11-07 07:10 | NUR ---
pt assessed for prn hhn tx. pt is on 1.5 liters nasal cannula. no respiratory distress noted at this time. breathing tx not indicated. will continue to monitor.
[2018-11-07 08:00] VITALS: BP 120/69
[2018-11-07 08:24] VITALS: BP 120/69
[2018-11-07] MEDS: POTASSIUM CHL 10 Meq TABLET PO SCH ×2 (09:53→22:30)
[2018-11-07] MEDS: FAMOTIDINE 20 MG TAB PO SCH ×2 (09:54→22:30)
[2018-11-07] MEDS: ASPirin 81 mg TAB PO SCH (09:54)
[2018-11-07] MEDS: FUROSEMIDE 20 MG/2 ML VIAL IV SCH ×2 (09:54→22:30)
[2018-11-07] MEDS: RANOLAZINE ER 500 MG TAB PO SCH ×2 (09:54→22:31)
[2018-11-07] MEDS: CARVEDILOL 3.125 MG TAB PO SCH ×2 (09:58→22:30)
[2018-11-07 14:14] VITALS: BP 120/77
[2018-11-07] MEDS: IPRATROPIUM BROM 0.5 MG/2.5ML INH SOL NEB PRN ×2 (14:30→18:30)
[2018-11-07] MEDS: LEVALBUTEROL HCL 1.25 MG/3 ML NEB NEB PRN ×2 (14:30→18:30)
--- NOTE | 2018-11-07 14:52 | NUR ---
NUTRITION CONSULT/ASSESSMENT NOTES Please refer to link notes of nutrition screen form filed under the intervention section of the plan of care for further details. Est. Needs: 1650 kcal to 1950 kcal (25-30 kcal/kgBW), 65 gms to 85 gms pro (1.0-1.3 gms/kgBW d/t mod hypoalbuminemia). Will continue to monitor pertinent labs and reassess nutrient need prn Thank you for this consult. Addendum: 11/07/18 at [address] Amended: Links added.
[2018-11-07 16:52] VITALS: BP 121/60
[2018-11-07] MEDS: Ensure Enlive Chocolate 8oz Bottle PO SCH (17:59)
--- NOTE | 2018-11-07 20:00 | NUR ---
OPENING SHIFT NOTE: PATIENT IS RESTING IN BED. SHE IS ON 2L NC. SHE IS AMBULATORY WITH A BEDSIDE COMMODE. SHE COMPLAINS OF GENERALIZED BODY PAIN. BED IS LOCKED IN LOWEST POSITION AND SIDE RAILS UP X2. SHE HAS BEEN UPDATED ON HER PLAN OF CARE. WILL CONTINUE TO MONITOR.
[2018-11-07 21:30] VITALS: BP 128/67
--- NOTE | 2018-11-08 00:25 | NUR ---
NOTIFIED BY WOMEN'S SOCCER COACH THAT SHE HAD 5 BEATS OF V-TAC
[2018-11-08] MEDS: MORPHINE SULF INJ 2 MG/ML SYRINGE 1ML IV PRN ×4 (02:58→16:16)
[2018-11-08 04:30] VITALS: BP 113/64
[2018-11-08 07:31] LABS: BUN/Creatinine Ratio 28.2; Calcium 9.1 mg/dL (8.5-10.1); Potassium 4.4 mmol/L (3.5-5.1)
[2018-11-08] MEDS: ONDANSETRON HCL 4 MG/2 ML VIAL IV PRN ×2 (07:59→16:16)
--- NOTE | 2018-11-08 07:59 | NUR ---
Patient stated her pain level at 9/10 at this time, she's nauseous. Morphine Sulf 1 mg IVP given for severe pain, Zofran given for nausea.
[2018-11-08] MEDS: Ensure Enlive Chocolate 8oz Bottle PO SCH ×2 (08:04→18:00)
[2018-11-08 09:00] VITALS: BP 115/63
[2018-11-08] MEDS: FUROSEMIDE 20 MG/2 ML VIAL IV SCH (09:16)
[2018-11-08] MEDS: RANOLAZINE ER 500 MG TAB PO SCH (09:16)
[2018-11-08] MEDS: CARVEDILOL 3.125 MG TAB PO SCH (09:17)
[2018-11-08] MEDS: ASPirin 81 mg TAB PO SCH (09:17)
[2018-11-08] MEDS: POTASSIUM CHL 10 Meq TABLET PO SCH (09:17)
[2018-11-08] MEDS: FAMOTIDINE 20 MG TAB PO SCH (09:17)
--- NOTE | 2018-11-08 10:10 | NUR ---
Dr. Gonsalez at bedside. Patient stated she has O2 at home, her home health is with [facility]. MD to discharge the patient today, remove the Midline, resume home health.
--- NOTE | 2018-11-08 10:12 | NUR ---
Paged Alcohol And Drug Counselor apron cleaner.
--- NOTE | 2018-11-08 10:22 | NUR ---
Financial Services Specialist Lillie called back. Lillie said patient is with [facility], they talked to the patient yesterday, [facility] will not take the patient back. Will ask the patient is she wants another hospice.
--- NOTE | 2018-11-08 10:26 | NUR ---
Explained to patient [facility] will not take her back. Patient stated she does not know other hospice, she needs one, she's okay to have another hospice.
--- NOTE | 2018-11-08 10:27 | NUR ---
Paged Preservative Filler Machine Operator Lillie again.
--- NOTE | 2018-11-08 10:29 | NUR ---
Public Health Assistant Lillie called, made aware patient is okay to have another hospice. Lillie said patient needs orders for Injection Molder Consult: Hospice Evaluation.
--- NOTE | 2018-11-08 10:34 | NUR ---
Dr. Gonsalez made aware [facility] will not take the patient back as per Multi Sensor Operator Lillie, patient okay to have another hospice. ordered Spring Inspector Consult for Hospice Evaluation.
--- NOTE | 2018-11-08 11:45 | NUR ---
Patient stated she's in pain, nauseous, asked for medications. Patient not due for pain and nausea medications at this time.
--- NOTE | 2018-11-08 12:15 | NUR ---
Patient stated her pain level at 9/10 at this time. Morphine Sulf 1 mg IVP given for severe pain as ordered.
--- NOTE | 2018-11-08 12:37 | NUR ---
Jennifer from [facility] came over to see the patient for Hospice Evaluation.
--- NOTE | 2018-11-08 12:45 | NUR ---
Jennifer of [facility] spoke with the patient. Jennifer to call their office, she will give me update regarding the hospice home.
[2018-11-08 12:54] VITALS: BP 120/74
--- NOTE | 2018-11-08 12:58 | NUR ---
Jennifer of [facility] said they will call me back regarding the transportation.
[2018-11-08 13:00] VITALS: BP 120/74
[2018-11-08 13:44] VITALS: BP 120/74
--- NOTE | 2018-11-08 13:44 | NUR ---
Respiratory note: PT ASSESED FOR PRN MEBNEB TX. NO RESPIRATORY DISTRESS NOTED. SPO2 97% ON 2L NC HR 87 RR 20 B/S CLEAR-DIMINISHED. PT AWARE TO HAVE PAGED IF THEY BECOME SOB.
--- NOTE | 2018-11-08 14:15 | NUR ---
Received a call back from [facility] that [facility] will come over to burr picker the patient at 6:00 pm [facility] for hospice home.
--- NOTE | 2018-11-08 16:35 | NUR ---
POM returned to patient.
--- NOTE | 2018-11-08 17:40 | NUR ---
Transport service arrived.
--- NOTE | 2018-11-08 18:00 | NUR ---
Discharge instructions given as ordered. Encourage to follow up with PMD as instructed. All questions and concerns addressed. Patient verbalized understanding. Medication reconciliation form completed and copy given to patient. IV removed with catheter intact, pressure dressing applied; Midline on the right upper arm removed, IV catheter intact, pressure dressing applied. Telemetry unit returned to TOR. Patient taken to vehicle via gurney with portable O2, patient with all personal belongings (including a pink quad cane), accompanied by [facility] personnel. No distress noted at time of departure.
--- NOTE | 2018-11-08 18:40 | NUR ---
Respiratory note: PT IN NO DISTRESS. BREATH SOUNDS ARE CLEAR BILATERALLY. NO NEED FOR MED NEB AT THIS TIME. PT AWARE TO CALL NURSE IF SOB OCCURS.
== END 2018-11-08 18:00 | disposition hospice, home (50) | DRG 291 ==
LOC: EDUNIT# 10:01 → ER 10:07 → TELE 12:13 → CENTRAL 13:10 → TELE-CENTR 11-07 08:18
PROVIDERS: ADMIT Nurse Practitioner Acute Care; ATTEND Internal Medicine
DX: I13.0 Hypertensive heart and chronic kidney disease with heart failure and stage 1 through stage 4 chronic kidney disease, or unspecified chronic kidney disease (principal); I50.43 Acute on chronic combined systolic (congestive) and diastolic (congestive) heart failure; J96.20 Acute and chronic respiratory failure, unspecified whether with hypoxia or hypercapnia; I24.9 Acute ischemic heart disease, unspecified; N39.0 Urinary tract infection, site not specified; I42.9 Cardiomyopathy, unspecified; F15.10 Other stimulant abuse, uncomplicated; J44.9 Chronic obstructive pulmonary disease, unspecified; I25.10 Atherosclerotic heart disease of native coronary artery without angina pectoris; G89.29 Other chronic pain; N18.3 Chronic kidney disease, stage 3 (moderate); Z51.5 Encounter for palliative care; F41.9 Anxiety disorder, unspecified; F32.9 Major depressive disorder, single episode, unspecified; E78.5 Hyperlipidemia, unspecified; K21.9 Gastro-esophageal reflux disease without esophagitis; Z79.899 Other long term (current) drug therapy; Z82.49 Family history of ischemic heart disease and other diseases of the circulatory system; Z83.3 Family history of diabetes mellitus; Z95.1 Presence of aortocoronary bypass graft; Z87.891 Personal history of nicotine dependence; Z90.710 Acquired absence of both cervix and uterus; Z99.81 Dependence on supplemental oxygen; Z88.5 Allergy status to narcotic agent
CPT/HCPCS: 36415; 71045; 71046; 80048; 80053; 80307; 81001; 83605; 83735; 83880; 84484; 85025; 85610; 85730; 87040; 87081; 87086; 93005; 93306; 94640; 96361; 96365; 96367; 96375; G0378; J0696; J2405; J2543; J3490

== ENCOUNTER 2019-01-08 17:31 | Inpatient (IN) | payer MEDICARE, MEDICAID ==
[~2019-01-08] VITALS: Ht 162.6 cm; Wt 54.9 kg
[~2019-01-08 17:31] MED LIST changes: -ALBU0.08 HHN; +ALBU0.08 NEB; -ALBUAER3 IN; -ALPR0.254 PO; +CARI-277 PO; -CLOP75TA41; -ENA2.5T PO; -FURO40TA4 PO; -HYDR-4069; +IPRA0.03 INH; -LORA-654 PO; +LORA0.5T12 PO; +ONDA-144 PO; -ONDA4TAB5 PO; -PANT40T PO; -POTA10SO11 PO; -RANO500T2 PO; -SUCR1TAB38 OR
[2019-01-08 18:23] LABS: Basophils # (auto) 0 uL; Basophils % (auto) 0.3 % (0.0-2.0); Eosinophils # (auto) 0.5 uL; Eosinophils % (auto) 6.6 % (0.0-7.0); Hematocrit 42.3 % (36.0-46.0); Lymphocytes # (auto) 1.8 uL; Lymphocytes % (auto) 27.1 % (10.0-50.0); Mean Corpuscular Hemoglobin 30.2 pg (28.0-32.0); Mean Corpuscular Hgb Conc. 33.2 g/dL (32.0-36.0); Mean Corpuscular Volume 91.1 fL (80.0-100.0); Monocytes # (auto) 0.8 uL; Monocytes % (auto) 11.1 % (0.0-12.0); Neutrophils # (auto) 3.7 uL; Neutrophils % (auto) 54.9 % (37.0-80.0); Nucleated Red Blood Cells % 0.1 %; Platelet Count (auto) 296 10^3/uL (140-450); Red Blood Cells 4.64 10^6/uL (4.0-5.20); Red Cell Distribution Width 14.7 % (11.8-14.3); White Blood Cell 6.8 10^3/uL (4.4-10.8)
[2019-01-08 18:45] LABS: Albumin 3.4 g/dL (3.4-5.0); Calcium 7.9 mg/dL (8.5-10.1); Magnesium 1.7 mg/dL (1.6-2.6)
[2019-01-08 18:51] LABS: BUN/Creatinine Ratio 13.3; Bilirubin, Total 0.5 mg/dL (0.2-1.0); Total Protein 6.3 g/dL (6.4-8.2)
[2019-01-08 18:58] LABS: Potassium 2.9 mmol/L (3.5-5.1)
[2019-01-08] MEDS ORDERED: ALBUTEROL SULF 2.5 MG/0.5ML(0.5%) NEB SOLN NEB ONE (20:15)
[2019-01-08] MEDS ORDERED: IPRATROPIUM BROM 0.5 MG/2.5ML INH SOL NEB ONE (20:15)
[2019-01-08] MEDS ORDERED: POTASSIUM CHL 20MEQ/100ML 100 ML IV ONE (20:15)
[2019-01-08] MEDS ORDERED: SODIUM CHLORIDE 0.9% 1,000 ML IV ONE (20:15)
[2019-01-08] MEDS ORDERED: ONDANSETRON HCL 4 MG/2 ML VIAL IV ONE (22:30)
[2019-01-08] MEDS ORDERED: MORPHINE SULFATE 4 MG/ML SYR/VIAL IV ONE (22:30)
[2019-01-08 22:36] LABS: Urine Bacteria NONE SEEN /hpf (None Seen); Urine Blood Negative /uL (Negative); Urine Hyaline Cast MOD /lpf (0 - 2); Urine Mucus FEW (None Seen); Urine Specific Gravity 1.012 (1.001-1.035); Urine WBC 1 /hpf (0 - 5)
[2019-01-09] MEDS ORDERED: FUROSEMIDE 20 MG/2 ML VIAL IV ONE (01:45)
[2019-01-09] MEDS ORDERED: TEMAZEPAM 15 MG CAP PO PRN (04:45)
[2019-01-09] MEDS ORDERED: ACETAMINOPHEN 500 MG TAB PO PRN (04:45)
[2019-01-09] MEDS ORDERED: MORPHINE SULF INJ 2 MG/ML SYRINGE 1ML IV PRN (04:45)
[2019-01-09] MEDS ORDERED: NITROGLYCERIN 0.4 MG SL TAB SL PRN (04:45)
[2019-01-09 04:49] VITALS: BP 118/79
[2019-01-09 05:47] LABS: Basophils # (auto) 0.1 uL; Basophils % (auto) 1.4 % (0.0-2.0); Eosinophils # (auto) 0.6 uL; Eosinophils % (auto) 7.1 % (0.0-7.0); Hematocrit 42.8 % (36.0-46.0); Hemoglobin 14.4 g/dL (12.2-16.2); Lymphocytes # (auto) 2.9 uL; Lymphocytes % (auto) 37.7 % (10.0-50.0); Mean Corpuscular Hemoglobin 30.2 pg (28.0-32.0); Mean Corpuscular Hgb Conc. 33.7 g/dL (32.0-36.0); Mean Corpuscular Volume 89.9 fL (80.0-100.0); Monocytes # (auto) 0.7 uL; Neutrophils # (auto) 3.5 uL; Neutrophils % (auto) 44.8 % (37.0-80.0); Nucleated Red Blood Cells % 0.2 %; Platelet Count (auto) 272 10^3/uL (140-450); Red Blood Cells 4.76 10^6/uL (4.0-5.20); Red Cell Distribution Width 14.5 % (11.8-14.3); White Blood Cell 7.7 10^3/uL (4.4-10.8)
[2019-01-09 06:03] LABS: Anion Gap 9 (5-15); BUN/Creatinine Ratio 13.9; Blood Urea Nitrogen 17 mg/dL (7-18); Calcium 7.7 mg/dL (8.5-10.1); Carbon Dioxide 26 mmol/L (21-32); Chloride 111 mmol/L (98-107); GFR African American 55 mL/min; GFR Non-African American 46 mL/min; Glucose 81 mg/dL (74-106); Potassium 3.1 mmol/L (3.5-5.1); Sodium 146 mmol/L (136-145)
[2019-01-09] MEDS: ONDANSETRON HCL 4 MG/2 ML VIAL IV PRN ×3 (06:56→20:11)
--- NOTE | 2019-01-09 08:40 | NUR ---
OPENING SHIFT NOTE ASSUMED CARE OF PT. PT ALERT AND ORIENTED X4. NO DISTRESS NOTED. BED IN LOWEST POSITION. CALL LIGHT WITHIN REACH. SIDE RAILS ARE UP X2. WILL CONTINUE TO MONITOR.
[2019-01-09] MEDS: ASPirin-EC 81 mg tab PO SCH (09:31)
[2019-01-09] MEDS: CARVEDILOL 3.125 MG TAB PO SCH ×2 (09:36→22:22)
[2019-01-09] MEDS: MORPHINE SULF INJ 2 MG/ML SYRINGE 1ML IV PRN ×3 (09:37→20:11)
[2019-01-09] MEDS: ALBUTEROL SULF 2.5 MG/0.5ML(0.5%) NEB SOLN NEB PRN ×2 (11:58→20:58)
[2019-01-09] MEDS: IPRATROPIUM BROM 0.5 MG/2.5ML INH SOL NEB PRN ×2 (11:58→20:58)
[2019-01-09 12:00] VITALS: BP 120/77
--- NOTE | 2019-01-09 15:57 | NUR ---
Received referral to see pt who is alert and oriented times 3. Pt was here less that a week ago with the same issue. Pt wanted a power of employment attorney. Pt is familiar with the document as she has filled one out prior. She stated that her daughter would assist her in filling it out. Gave pt a packet of substance abuse resources. Pt did not want to talk about the substance abuse.
--- NOTE | 2019-01-09 16:50 | NUR ---
INFORMED CARLENE LAWRENCE REGARDING HAVING MED NEB TX Q6 FOR PT.
[2019-01-09 17:00] VITALS: BP 109/64
--- NOTE | 2019-01-09 19:35 | NUR ---
Opening Shift Note Assumed care of patient, awake and alert. No S/S of distress/SOB. Patient reporting 9/10 abdominal and back pain, denies chest pain at this time. Will medicate as ordered. Bed in lowest locked position, side rails up x2, call light within reach. Instructed on POC and to call for assist PRN, will continue to monitor for changes Q1hr and PRN.
[2019-01-09 22:00] VITALS: BP 129/72
[2019-01-09] MEDS ORDERED: ATORVASTATIN 20 MG TAB PO SCH (22:00)
[2019-01-10] MEDS: MORPHINE SULF INJ 2 MG/ML SYRINGE 1ML IV PRN ×4 (00:18→13:51)
[2019-01-10] MEDS: ONDANSETRON HCL 4 MG/2 ML VIAL IV PRN ×4 (00:19→13:52)
[2019-01-10] MEDS: ALBUTEROL SULF 2.5 MG/0.5ML(0.5%) NEB SOLN NEB PRN ×3 (03:58→14:27)
[2019-01-10] MEDS: IPRATROPIUM BROM 0.5 MG/2.5ML INH SOL NEB PRN ×3 (03:58→14:27)
[2019-01-10 05:00] VITALS: BP 121/77
[2019-01-10 05:35] LABS: BUN/Creatinine Ratio 21.2; Calcium 8.7 mg/dL (8.5-10.1); Potassium 3.4 mmol/L (3.5-5.1)
--- NOTE | 2019-01-10 06:59 | NUR ---
Closing Note Patient sitting up in bed, awake and alert. No s/s of distress. Care endorsed to dayshift RN.
--- NOTE | 2019-01-10 07:48 | NUR ---
Opening Patient asleep in bed, bed in lowest position, call light within reach. No distress noted at this time. Will continue to monitor this patient and f/u with morning assessment. Cardio consult pending for chest pain CDiff order is pending, but per the patient, no bouts of diarrhea. Will confirm this order. 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
[2019-01-10] MEDS: ASPirin-EC 81 mg tab PO SCH (08:59)
[2019-01-10] MEDS: CARVEDILOL 3.125 MG TAB PO SCH (08:59)
[2019-01-10 09:00] VITALS: BP 134/86
[2019-01-10 09:27] LABS: Alcohol, Urine < 3.0 mg/dL (0-5); Amphetamine Screen, Urine POSITIVE (NEGATIVE); Barbiturate Scree,Urine NEGATIVE (NEGATIVE); Benzodiazephine Screen, Urine NEGATIVE (NEGATIVE); Cannabinoid Screen, Urine NEGATIVE (NEGATIVE); Cocaine Screen, Urine NEGATIVE (NEGATIVE); Opiate Scree,Urine POSITIVE (NEGATIVE); Phencyclidine Screen, Urine NEGATIVE (NEGATIVE)
[2019-01-10] MEDS ORDERED: FUROSEMIDE 20 MG TAB PO SCH (10:00)
[2019-01-10] MEDS ORDERED: BENAZEPRIL HCL 10 MG TAB PO SCH (10:00)
[2019-01-10] MEDS ORDERED: POTASSIUM CHL 20 Meq TABLET PO SCH (10:00)
[2019-01-10 13:00] VITALS: BP 94/62
[2019-01-10 17:00] VITALS: BP 96/69
[2019-01-10] MEDS ORDERED: NITROGLYCERIN 0.4 MG SL TAB SL PRN (18:30)
--- NOTE | 2019-01-10 18:45 | NUR ---
Respiratory note: PT'S PRN MED NEB TX WERE D/C PER DOCTOR'S REQUEST AT THIS TIME, REASON UNKNOWN. WILL NOTIFY RN.
--- NOTE | 2019-01-10 18:53 | NUR ---
julio sanon per the cancellation of breathing treatments, awaiting call back. wanting to know reasoning for cancellation
--- NOTE | 2019-01-10 22:41 | NUR ---
AMA Patient very upset over pain medication and nausea medication being discontinued. Patient asked to speak with charge nurse and to leave AMA. Charge nurse Anastasia CONCEPCION at bedside at 22:00. Patient states that she "just wants to go home, I have more pain meds there". Patient educated on importance of staying continuing with plan of care, patient verbalized understanding, but refuses at this time stating, "I want to leave now, but I have no one who can pick me up." Number provided for local [employer] service by Anastasia CONCEPCION, contacted and told to picking tech patient at ER entrance at [facility]. Patient signed AMA form. IV catheter removed intact. TOR monitor removed and returned to TOR. Patient escorted to ER by staff, no s/s of distress on departure. Addendum: 01/11/19 at 0031 by JOVANY MATHEW RN RN ADDITION: Will page director of consumer affairs hospitalist and inform them of patient leaving AMA.
--- NOTE | 2019-01-12 14:14 | NUR ---
office administration instructor 01/10/19 No call or page on this patient. Per consult frequent admissions, meth use. Patient discharged home prior to being assessed. Addendum: 01/19/19 at 1715 by Lillie Looney Amended: Links added.
[2019-02-15] MEDS ORDERED: CARI-277 PO (14:24)
== END 2019-01-10 23:59 | disposition left against medical advice (07) | DRG 917 ==
LOC: EDUNIT# 17:31 → EDBD 17:31 → ER 17:38 → TELE 17:39 → TELE-WESTW 01-09 08:44
PROVIDERS: ADMIT Nurse Practitioner Family; ATTEND Internal Medicine Pulmonary Disease
DX: T43.621A Poisoning by amphetamines, accidental (unintentional), initial encounter (principal); I50.43 Acute on chronic combined systolic (congestive) and diastolic (congestive) heart failure; J44.1 Chronic obstructive pulmonary disease with (acute) exacerbation; F11.20 Opioid dependence, uncomplicated; E87.6 Hypokalemia; I11.0 Hypertensive heart disease with heart failure; E78.5 Hyperlipidemia, unspecified; F15.10 Other stimulant abuse, uncomplicated; F41.9 Anxiety disorder, unspecified; I25.10 Atherosclerotic heart disease of native coronary artery without angina pectoris; K21.9 Gastro-esophageal reflux disease without esophagitis; F32.9 Major depressive disorder, single episode, unspecified; G89.4 Chronic pain syndrome; Z53.21 Procedure and treatment not carried out due to patient leaving prior to being seen by health care provider; F19.10 Other psychoactive substance abuse, uncomplicated; I25.5 Ischemic cardiomyopathy; Z90.710 Acquired absence of both cervix and uterus; Z91.19 Patient's noncompliance with other medical treatment and regimen; Z95.1 Presence of aortocoronary bypass graft; Z83.3 Family history of diabetes mellitus; I25.2 Old myocardial infarction; Z82.49 Family history of ischemic heart disease and other diseases of the circulatory system; Z87.891 Personal history of nicotine dependence; Z95.810 Presence of automatic (implantable) cardiac defibrillator; Z88.5 Allergy status to narcotic agent; Z90.49 Acquired absence of other specified parts of digestive tract
CPT/HCPCS: 36415; 70450; 71045; 80048; 80053; 80307; 81001; 83605; 83735; 83880; 84132; 84484; 85025; 87081; 93005; 94640; 94761; 96374; 96375; G0378; J2405; J3480

== ENCOUNTER 2019-02-22 23:47 | Inpatient (IN) | payer OTHER, MEDICAID ==
[~2019-02-22] VITALS: Ht 162.6 cm; Wt 65.4 kg
[2019-02-23 00:44] LABS: Basophils # (auto) 0.1 uL; Basophils % (auto) 1.4 % (0.0-2.0); Eosinophils # (auto) 0.5 uL; Eosinophils % (auto) 4.4 % (0.0-7.0); Hematocrit 39.2 % (36.0-46.0); Lymphocytes # (auto) 1.9 uL; Lymphocytes % (auto) 17.9 % (10.0-50.0); Mean Corpuscular Hgb Conc. 33.1 g/dL (32.0-36.0); Mean Corpuscular Volume 87.6 fL (80.0-100.0); Monocytes # (auto) 0.8 uL; Monocytes % (auto) 7.8 % (0.0-12.0); Neutrophils # (auto) 7.1 uL; Neutrophils % (auto) 68.5 % (37.0-80.0); Nucleated Red Blood Cells % 0.1 %; Platelet Count (auto) 202 10^3/uL (140-450); Red Blood Cells 4.47 10^6/uL (4.0-5.20); Red Cell Distribution Width 15.3 % (11.8-14.3); White Blood Cell 10.5 10^3/uL (4.4-10.8)
[2019-02-23] MEDS ORDERED: methylPREDNISolone SOD SUCC 125 MG/2 ML VL IV ONE (00:45)
[2019-02-23] MEDS ORDERED: MORPHINE SULF INJ 2 MG/ML SYRINGE 1ML IV ONE ×2 (00:45→04:00)
[2019-02-23] MEDS ORDERED: ONDANSETRON HCL 4 MG/2 ML VIAL IV ONE (00:45)
[2019-02-23 00:58] LABS: INR 1.02 (0.9-1.15); Partial Thromboplastin Time 25.7 sec (23.64-32.05)
[2019-02-23 01:01] LABS: Albumin 3.2 g/dL (3.4-5.0); BUN/Creatinine Ratio 22.6; Calcium 8.3 mg/dL (8.5-10.1); Potassium 4.3 mmol/L (3.5-5.1)
[2019-02-23 01:11] LABS: Bilirubin, Total 0.7 mg/dL (0.2-1.0); Total Protein 6.3 g/dL (6.4-8.2)
[2019-02-23] MEDS ORDERED: MORPHINE SULF INJ 2 MG/ML SYRINGE 1ML ONE (03:58)
[2019-02-23] MEDS ORDERED: FUROSEMIDE 20 MG/2 ML VIAL IV ONE (05:00)
[2019-02-23] MEDS ORDERED: MORPHINE SULF INJ 2 MG/ML SYRINGE 1ML IV PRN (07:45)
[2019-02-23] MEDS ORDERED: BUMETANIDE 1mg/4ml VIAL (0.25mg/ml) IV ONE ×2 (07:45→10:15)
[2019-02-23] MEDS ORDERED: IPRATROPIUM BROM 0.5 MG/2.5ML INH SOL NEB PRN (07:45)
[2019-02-23] MEDS ORDERED: NITROGLYCERIN 0.4 MG SL TAB SL PRN (07:45)
[2019-02-23] MEDS ORDERED: DOCUSATE SOD 100 MG CAP PO PRN (07:45)
[2019-02-23] MEDS: LORazepam 0.5 MG TAB PO PRN (10:04)
[2019-02-23] MEDS: ASPirin-EC 81 mg tab PO SCH (10:04)
[2019-02-23] MEDS: CARVEDILOL 3.125 MG TAB PO SCH ×2 (10:04→22:07)
[2019-02-23] MEDS: FAMOTIDINE 20 MG TAB PO SCH (10:04)
[2019-02-23] MEDS: HYDROmorphone HCL 2 MG TAB PO PRN ×3 (10:05→22:08)
--- NOTE | 2019-02-23 11:39 | NUR ---
Telemetry admit from ER MONICA JAMES admitted to Telemetry unit after SBAR received. Patient oriented to Amadeo Arreola, primary RN, unit, room, bed, and unit policies regarding patient care and visiting hours. Patient now on continuous telemetry monitoring, tele box #5 and telemetry reading on arrival to unit is Paced-92. Patient placed on bedside oxygen, weighed by bedscale and encouraged to call if they need something. All questions and concerns addressed, patient verbalized understanding.
[2019-02-23] MEDS: IPRATROPIUM BROM 0.5 MG/2.5ML INH SOL NEB SCH ×3 (11:55→23:51)
[2019-02-23] MEDS: BUDESONIDE (INHALATION) 0.5 MG/2 ML NEB NEB SCH ×2 (11:55→18:17)
[2019-02-23] MEDS: LEVALBUTEROL HCL 1.25 MG/3 ML NEB NEB SCH ×3 (11:56→23:51)
[2019-02-23 13:00] VITALS: BP 134/76
[2019-02-23 13:06] VITALS: BP 130/99
[2019-02-23 13:44] VITALS: BP 130/99
[2019-02-23] MEDS: ONDANSETRON HCL 4 MG/2 ML VIAL IV PRN ×2 (16:19→22:07)
[2019-02-23 17:00] VITALS: BP 127/82
--- NOTE | 2019-02-23 19:40 | NUR ---
Opening Shift Note Assumed care of patient, awake and alert x4. Patient is complaining of back pain (pain scale 8/10), will medicate patient as ordered by MD. No signs/symptoms of distress/shortness of breath noted at this time. Instructed on plan of care and to call for assistance as needed, patient verbalized understanding. Bed is locked in lowest position, side rails x 2 are up, call light is within reach, and bed alarm is on.
[2019-02-23 21:27] VITALS: BP 103/64
[2019-02-23] MEDS: ATORVASTATIN 20 MG TAB PO SCH (22:07)
--- NOTE | 2019-02-23 23:00 | NUR ---
IV INSERTION IV access obtained, via clean sterile technique by inserting 22 gauge catheter at left upper arm after 1 attempt. IV secured properly. No trauma to site. Patient tolerated well.
--- NOTE | 2019-02-24 00:13 | NUR ---
ORDERS RECEIVED RE: COUGH Notified Dr. Oakley that patient has a nonproductive cough that is causing her chest to hurt and is not letting her sleep. Orders for Robitussin-dm 10ml four times daily as needed for cough received. Order verified. Will carry out order as received. Addendum: 02/25/19 at 0106 by STEWART ANTHONY RN RN WRONG DATE: 02/24/2019 CORRECT DATE AND TIME OF ORDER RECEIVED: 02/25/2019 AND TIME 0104
[2019-02-24] MEDS: TEMAZEPAM 15 MG CAP PO SCH ×2 (00:28→23:10)
[2019-02-24] MEDS: CARISOPRODOL 350 MG TAB PO PRN ×2 (00:28→23:10)
[2019-02-24] MEDS: LORazepam 0.5 MG TAB PO PRN ×2 (03:56→17:01)
[2019-02-24] MEDS: ONDANSETRON HCL 4 MG/2 ML VIAL IV PRN ×2 (03:57→21:32)
[2019-02-24] MEDS: ALBUTEROL SULF 2.5 MG/0.5ML(0.5%) NEB SOLN NEB PRN ×3 (04:34→22:07)
[2019-02-24 04:40] VITALS: BP 101/63
[2019-02-24] MEDS: IPRATROPIUM BROM 0.5 MG/2.5ML INH SOL NEB SCH ×5 (06:00→22:07)
[2019-02-24] MEDS: LEVALBUTEROL HCL 1.25 MG/3 ML NEB NEB SCH ×3 (06:00→18:26)
--- NOTE | 2019-02-24 08:00 | NUR ---
Opening Shift Note Assumed care of patient, awake and alert. No S/S of distress/SOB 5/10 generalized pain. Instructed on POC and to call for assist PRN, will continue to monitor for changes Q1hr and PRN.
[2019-02-24 09:04] VITALS: BP 112/80
[2019-02-24] MEDS: FUROSEMIDE 40 MG/4 ML VIAL IV SCH (09:49)
[2019-02-24] MEDS: ASPirin-EC 81 mg tab PO SCH (09:50)
[2019-02-24] MEDS: CARVEDILOL 3.125 MG TAB PO SCH ×2 (09:50→21:32)
[2019-02-24] MEDS: FAMOTIDINE 20 MG TAB PO SCH (09:50)
[2019-02-24] MEDS: BUDESONIDE (INHALATION) 0.5 MG/2 ML NEB NEB SCH ×2 (11:24→18:26)
[2019-02-24 13:00] VITALS: BP 117/73
[2019-02-24] MEDS: HYDROmorphone HCL 2 MG TAB PO PRN ×2 (15:00→21:33)
--- NOTE | 2019-02-24 16:40 | NUR ---
assessment Patient is a 73 year old female who is alert and oriented. Prior to admission patient lived home with her [facility] caregiver and functioned with assistance. Per patient she will return home to her prior living arrangements post discharge. Patient has home 02, hospital bed, fww and a cane. I informed patient she has a consult for using meth one week ago. Patient informed me that she had quit using meth, but relapsed when her dog and she used one time. Patient informed me she will not use again. I offered patient resources for substance abuse inpatient and outpatient rehabs. Patient refused. I informed patient she has a right to speak to a outreach and education social worker regarding all care. Patient does not have a POA and advanced directive. I have offered patient information on POA and advanced directives. I informed the patient the advantages and benefits of having an Advanced Directive. Patient may need home health on discharge for safety and medication management. Patient verbalized understanding and agreed to discharge plan home. Addendum: 02/24/19 at 1658 by Lillie HDEZ Amended: Links added.
[2019-02-24 17:00] VITALS: BP 130/72
--- NOTE | 2019-02-24 19:05 | NUR ---
Opening Shift Note Assumed care of patient, awake and alert x4. Patient denies pain at this time. No signs/symptoms of distress/shortness of breath noted at this time. Instructed on plan of care and to call for assistance as needed, patient verbalized understanding. Bed is locked in lowest position, side rails x 2 are up, call light is within reach, and bed alarm is on.
[2019-02-24] MEDS: ATORVASTATIN 20 MG TAB PO SCH (21:32)
[2019-02-24 22:15] VITALS: BP 101/71
[2019-02-24] MEDS ORDERED: guaiFENesin-CODEINE Liq 5 ML UD PO PRN (23:45)
[2019-02-25] MEDS: guaiFENesin-DM 100/10mg/5ml SYR PO PRN ×2 (00:43→06:35)
[2019-02-25] MEDS: ALBUTEROL SULF 2.5 MG/0.5ML(0.5%) NEB SOLN NEB PRN (02:06)
[2019-02-25] MEDS: IPRATROPIUM BROM 0.5 MG/2.5ML INH SOL NEB SCH ×5 (02:06→21:50)
[2019-02-25 05:37] VITALS: BP 108/76
[2019-02-25] MEDS: LEVALBUTEROL HCL 1.25 MG/3 ML NEB NEB SCH ×4 (06:03→21:50)
[2019-02-25] MEDS: BUDESONIDE (INHALATION) 0.5 MG/2 ML NEB NEB SCH ×2 (06:05→17:23)
[2019-02-25 08:00] VITALS: BP 117/77
[2019-02-25] MEDS: CARVEDILOL 3.125 MG TAB PO SCH ×2 (09:01→20:38)
[2019-02-25] MEDS: FUROSEMIDE 40 MG/4 ML VIAL IV SCH (09:01)
[2019-02-25] MEDS: FAMOTIDINE 20 MG TAB PO SCH (09:02)
[2019-02-25] MEDS: ASPirin-EC 81 mg tab PO SCH (09:02)
[2019-02-25] MEDS: HYDROmorphone HCL 2 MG TAB PO PRN ×3 (09:03→21:08)
[2019-02-25 09:04] VITALS: BP 117/77
[2019-02-25] MEDS ORDERED: FUROSEMIDE 40 MG/4 ML VIAL IV ONE (11:30)
[2019-02-25 13:00] VITALS: BP 102/70
[2019-02-25] MEDS: ONDANSETRON HCL 4 MG/2 ML VIAL IV PRN ×2 (15:27→21:44)
[2019-02-25 17:04] VITALS: BP 111/76
--- NOTE | 2019-02-25 20:00 | NUR ---
PATIENT REFUSED IV INSERTION Patient refused IV insertion at this time. Patient educated on the importance of changing IV catheter every 3 days. Patient continued to refuse IV insertion at this time.
[2019-02-25] MEDS: ATORVASTATIN 20 MG TAB PO SCH (20:38)
[2019-02-25 22:00] VITALS: BP 107/73
[2019-02-25] MEDS: TEMAZEPAM 15 MG CAP PO SCH (22:00)
[2019-02-26] VITALS (7 sets, daily range): BP systolic 92–114; BP diastolic 56–79
[2019-02-26] MEDS: IPRATROPIUM BROM 0.5 MG/2.5ML INH SOL NEB SCH ×6 (01:34→23:23)
[2019-02-26] MEDS: LEVALBUTEROL HCL 1.25 MG/3 ML NEB NEB SCH ×6 (01:34→23:24)
[2019-02-26] MEDS: CARISOPRODOL 350 MG TAB PO PRN ×2 (02:00→21:56)
[2019-02-26] MEDS: HYDROmorphone HCL 2 MG TAB PO PRN ×2 (03:55→14:48)
[2019-02-26] MEDS: ONDANSETRON HCL 4 MG/2 ML VIAL IV PRN (03:55)
--- NOTE | 2019-02-26 07:30 | NUR ---
CLOSING SHIFT NOTE Patient is laying in bed with even and unlabored respirations. No signs/symptoms of distress or shortness of breath noted at this time. Patient care endorsed to Karely CONCEPCION.
--- NOTE | 2019-02-26 07:50 | NUR ---
PATIENT REFUSED IV INSERTION Patient refused IV insertion at this time. Patient educated on the importance of changing IV catheter every 3 days. Patient continued to refuse IV insertion at this time PT stated "i dont like getting poked im a hard stick it still works" told pt we will ask to insert later in shift she stated "i will think about it"
[2019-02-26] MEDS: traMADol HCL 50 MG TAB PO PRN ×2 (09:10→20:54)
[2019-02-26] MEDS: LORazepam 0.5 MG TAB PO PRN ×2 (09:10→23:03)
[2019-02-26] MEDS: CARVEDILOL 3.125 MG TAB PO SCH ×2 (09:54→21:42)
[2019-02-26] MEDS: FAMOTIDINE 20 MG TAB PO SCH (09:56)
[2019-02-26] MEDS: ASPirin-EC 81 mg tab PO SCH (09:57)
[2019-02-26] MEDS: FUROSEMIDE 40 MG/4 ML VIAL IV SCH (10:00)
--- NOTE | 2019-02-26 10:22 | NUR ---
noted martha iv infiltrated with hard lump next to iv insertion site, no redness or warmth noted pt states it only hurts when you touch the lump, tried to insert peripheral iv x2 tries on right arm and right shoulder unsuccessful charge nurse made aware of attempts advised to call md zhong to switch lasix and ZOFRAN TO po
--- NOTE | 2019-02-26 10:24 | NUR ---
called md zhong product builder stated he is in label stitcher and will deliver message regarding switching pt med to po awaiting response
[2019-02-26] MEDS: BUDESONIDE (INHALATION) 0.5 MG/2 ML NEB NEB SCH ×2 (10:46→19:05)
--- NOTE | 2019-02-26 13:21 | NUR ---
Initial Assessment: See Interventions for details Estimated needs based on CBW 65.8 kg 1908-9645 kcal (25-30 kcal/kg) 66-79 g protein (1.0-1.2 g/kg) Addendum: 02/26/19 at [address] Amended: Links added.
--- NOTE | 2019-02-26 19:08 | NUR ---
RT NOTE PT WAS SEEN BY RT FOR HHN TX. PT TOLERATES WELL VIA MASK. NO ADVERSE REACTION NOTED. CONT ORDERED Addendum: 02/26/19 at 1909 by Audra Del Valle RT Amended: Links added.
[2019-02-26] MEDS: guaiFENesin-DM 100/10mg/5ml SYR PO PRN (20:53)
--- NOTE | 2019-02-26 20:55 | NUR ---
IV to MERVAT 22 gauge infiltrated. Discontinued IV. Started new IV to left hand however, unsuccessful. Patient refused further insertion at this time. Will continue to monitor.
--- NOTE | 2019-02-26 21:00 | NUR ---
Patient assisted to bedside commode. Patient with moderate amount of soft formed green brown stool. Assisted patient back to bed. Bedside commode cleaned and partial linen change done. Will continue to monitor.
[2019-02-26] MEDS: TEMAZEPAM 15 MG CAP PO SCH (21:42)
[2019-02-26] MEDS: ATORVASTATIN 20 MG TAB PO SCH (21:42)
--- NOTE | 2019-02-26 23:21 | NUR ---
RT NOTE PT WAS SEEN BY RT FOR WHILE AWAKE HHN TX. PT WAS SLEEPING. NO TREATMENT WAS INDICATED. PT WILL CALL IF TX IS NEEDED
[2019-02-27] MEDS: traMADol HCL 50 MG TAB PO PRN ×3 (04:43→17:20)
[2019-02-27 05:00] VITALS: BP 113/75
[2019-02-27 05:57] LABS: Basophils # (auto) 0.1 uL; Basophils % (auto) 1.3 % (0.0-2.0); Eosinophils # (auto) 1.3 uL; Eosinophils % (auto) 11.2 % (0.0-7.0); Hematocrit 41.3 % (36.0-46.0); Hemoglobin 13.6 g/dL (12.2-16.2); Lymphocytes # (auto) 2.7 uL; Lymphocytes % (auto) 23.2 % (10.0-50.0); Mean Corpuscular Hemoglobin 28.6 pg (28.0-32.0); Mean Corpuscular Volume 86.5 fL (80.0-100.0); Monocytes # (auto) 0.9 uL; Monocytes % (auto) 7.9 % (0.0-12.0); Neutrophils # (auto) 6.6 uL; Neutrophils % (auto) 56.4 % (37.0-80.0); Nucleated Red Blood Cells % 0.1 %; Platelet Count (auto) 279 10^3/uL (140-450); Red Blood Cells 4.78 10^6/uL (4.0-5.20); Red Cell Distribution Width 15.1 % (11.8-14.3); White Blood Cell 11.6 10^3/uL (4.4-10.8)
[2019-02-27 06:18] LABS: Albumin 3.2 g/dL (3.4-5.0); Calcium 8.7 mg/dL (8.5-10.1); Potassium 4.3 mmol/L (3.5-5.1)
--- NOTE | 2019-02-27 06:20 | NUR ---
Paged RT for breathing tx as per patient's request.
[2019-02-27 06:24] LABS: BUN/Creatinine Ratio 28.1; Bilirubin, Total 0.7 mg/dL (0.2-1.0); Total Protein 6.1 g/dL (6.4-8.2)
--- NOTE | 2019-02-27 06:24 | NUR ---
Received call back fro RT. Will be at the pt's room in 10-15 minutes. Per patient, she can still wait. Patient not in respiratory distress at this time.
[2019-02-27] MEDS: CARISOPRODOL 350 MG TAB PO PRN ×3 (06:30→22:47)
[2019-02-27] MEDS: LEVALBUTEROL HCL 1.25 MG/3 ML NEB NEB SCH ×5 (06:42→22:26)
[2019-02-27] MEDS: BUDESONIDE (INHALATION) 0.5 MG/2 ML NEB NEB SCH ×2 (06:42→19:04)
[2019-02-27] MEDS: IPRATROPIUM BROM 0.5 MG/2.5ML INH SOL NEB SCH ×5 (06:42→22:26)
--- NOTE | 2019-02-27 07:50 | NUR ---
PT RESTING IN BED. PT REPORTS 01/03 CHEST PAIN FROM COUGHING, NO SOB, TIGHTNESS OR PRESSURE REPORTED. PT REPORTS PAIN IS ALSO IN BACK. NIGHT RN REPORTS SHE ALREADY GAVE SOMA AND ULTRAM. PT ENCOURAGED TO USE CALL LIGHT PRN, WILL CONTINUE TO MONITOR. Addendum: 02/27/19 at 0904 by CARROLL EVANGELISTA RN PT REPORTS SHE WANTS A MIDLINE INSERTED TODAY.
[2019-02-27 08:00] VITALS: BP 105/71
[2019-02-27] MEDS: FUROSEMIDE 40 MG/4 ML VIAL IV SCH (09:52)
[2019-02-27] MEDS: ASPirin-EC 81 mg tab PO SCH (09:55)
[2019-02-27] MEDS: metOLazone 5 MG TAB PO SCH (09:56)
[2019-02-27] MEDS: FAMOTIDINE 20 MG TAB PO SCH (09:57)
[2019-02-27] MEDS: DIGOXIN 0.125 MG TAB PO SCH (09:57)
[2019-02-27] MEDS: CARVEDILOL 3.125 MG TAB PO SCH ×2 (09:58→22:00)
[2019-02-27 12:00] VITALS: BP 92/68
--- NOTE | 2019-02-27 13:00 | NUR ---
Dilcia PICC nurse called, she reports she is by herself today but will try and get patient done after lunch.
--- NOTE | 2019-02-27 15:27 | NUR ---
unable to insert midline after 2 attempts. unable to advance catheter.
--- NOTE | 2019-02-27 15:55 | NUR ---
IV INSERTED BY ULTRASOUND. RAC 20 GAUGE.
[2019-02-27 17:00] VITALS: BP 108/53
[2019-02-27] MEDS: TORSEMIDE 20 MG TAB PO SCH (17:19)
[2019-02-27] MEDS: ONDANSETRON HCL 4 MG/2 ML VIAL IV PRN ×2 (17:20→23:00)
--- NOTE | 2019-02-27 19:30 | NUR ---
OPENING SHIFT NOTE Patient in bed watching tv alert and oriented x 4. Pt verbally coherent able to make needs known. Patient's respiration even and unlabored, complained of general body pain, will administer pain medication as ordered. Plan of care discussed, patient verbalized understanding. All needs attended. Will continue to monitor.
[2019-02-27] MEDS: HYDROmorphone HCL 2 MG TAB PO PRN (19:57)
--- NOTE | 2019-02-27 20:00 | NUR ---
Assisted patient to bedside commode. Patient had a small amount of soft green brown stool. Assisted pt back to bed. All needs attended, will continue to monitor.
--- NOTE | 2019-02-27 21:06 | NUR ---
Provided pt with chrissy and milk as requested.
--- NOTE | 2019-02-27 21:58 | NUR ---
Assisted patient to bedside commode. Patient had a moderate amount of clear yellow urine with no foul odor. Assisted pt back to bed. All needs attended, will continue to monitor.
--- NOTE | 2019-02-27 21:59 | NUR ---
Pt's BP at 91/55 HR 78. Pt asymptomatic. Carvedilol held and returned to pyxis. Will continue to monitor.
[2019-02-27] MEDS: TEMAZEPAM 15 MG CAP PO SCH (22:10)
[2019-02-27] MEDS: ATORVASTATIN 20 MG TAB PO SCH (22:10)
[2019-02-27 22:33] VITALS: BP 91/55
[2019-02-28] MEDS: HYDROmorphone HCL 2 MG TAB PO PRN ×3 (03:23→18:54)
[2019-02-28] MEDS: traMADol HCL 50 MG TAB PO PRN ×2 (04:56→13:46)
[2019-02-28] MEDS: ONDANSETRON HCL 4 MG/2 ML VIAL IV PRN ×3 (04:57→22:29)
[2019-02-28] MEDS: LEVALBUTEROL HCL 1.25 MG/3 ML NEB NEB SCH ×5 (05:37→22:09)
[2019-02-28] MEDS: BUDESONIDE (INHALATION) 0.5 MG/2 ML NEB NEB SCH ×2 (05:37→18:59)
[2019-02-28] MEDS: IPRATROPIUM BROM 0.5 MG/2.5ML INH SOL NEB SCH ×5 (05:37→22:10)
[2019-02-28 05:42] VITALS: BP 107/73
[2019-02-28] MEDS: TORSEMIDE 20 MG TAB PO SCH ×2 (06:09→18:00)
--- NOTE | 2019-02-28 07:49 | NUR ---
PT RESTING IN BED AND REPORTS 8/10 PAIN IN CHEST FROM COUGHING AND PAIN IN BACK. PT REPORTS PAIN IS THE SAME YESTERDAY. PRN PAIN MEDICATION ALREADY GIVEN BY MAT MAKER. PT REPORTS NO SOB OR DIFFICULTY BREATHING AT THIS TIME, WILL CONTINUE TO MONITOR.
[2019-02-28 07:57] LABS: BUN/Creatinine Ratio 23.8; Calcium 9.1 mg/dL (8.5-10.1); Potassium 4.2 mmol/L (3.5-5.1)
--- NOTE | 2019-02-28 08:52 | NUR ---
LEFT MESSAGE FOR DR THOMAS NOTIFYING BNP TRENDING DOWN FROM 2140.0 TO 1259.17 THIS MORNING.
[2019-02-28 09:11] VITALS: BP 115/73
[2019-02-28] MEDS: CARVEDILOL 3.125 MG TAB PO SCH ×2 (10:00→22:00)
--- NOTE | 2019-02-28 10:00 | NUR ---
MORNING COREG HELD. WHEN GIVEN YESTERDAY PT BP DROPPED TO 92/68, HR 79.
[2019-02-28] MEDS: DIGOXIN 0.125 MG TAB PO SCH (10:03)
[2019-02-28] MEDS: FAMOTIDINE 20 MG TAB PO SCH (10:03)
[2019-02-28] MEDS: metOLazone 5 MG TAB PO SCH (10:04)
[2019-02-28] MEDS: ASPirin-EC 81 mg tab PO SCH (10:04)
[2019-02-28 13:00] VITALS: BP 128/78
[2019-02-28 17:00] VITALS: BP 102/56
[2019-02-28] MEDS: LORazepam 0.5 MG TAB PO PRN (19:45)
--- NOTE | 2019-02-28 21:18 | NUR ---
Received call from Delio/RODOLFO. Pt with Afib RVR. Paged Dr. Oakley awaiting call back. Patient assessed while in bed. Pt alert and oriented, respiration even and unlabored. BP 91/57, HR 76, RR 16 and O2 sat 98%. Will continue to monitor. Addendum: 02/28/19 at 2120 by Jennifer Rodríguez RN Pt with no complaint of chest pain.
--- NOTE | 2019-02-28 21:22 | NUR ---
Received call back from Dr. Oakley with new order to start Amiodarone 400 mg po bid, Mag oxide 400 mg po bid and cardio consult with Dr. Oakley. All orders read back noted and carried out. Will continue to monitor.
[2019-02-28 22:00] VITALS: BP 91/57
[2019-02-28] MEDS: AMIODARONE HCL 200 MG TAB PO SCH (22:19)
[2019-02-28] MEDS: TEMAZEPAM 15 MG CAP PO SCH (22:20)
[2019-02-28] MEDS: MAGNESIUM OXIDE 400 MG TAB PO SCH (22:20)
[2019-02-28] MEDS: ATORVASTATIN 20 MG TAB PO SCH (22:20)
[2019-02-28] MEDS: guaiFENesin-DM 100/10mg/5ml SYR PO PRN (22:22)
[2019-03-01] MEDS: ONDANSETRON HCL 4 MG/2 ML VIAL IV PRN ×4 (04:31→23:51)
[2019-03-01] MEDS: HYDROmorphone HCL 2 MG TAB PO PRN ×3 (04:31→23:51)
[2019-03-01 05:00] VITALS: BP 103/66
[2019-03-01] MEDS: IPRATROPIUM BROM 0.5 MG/2.5ML INH SOL NEB SCH ×2 (05:33→09:40)
[2019-03-01] MEDS: LEVALBUTEROL HCL 1.25 MG/3 ML NEB NEB SCH ×5 (05:33→22:08)
[2019-03-01] MEDS: TORSEMIDE 20 MG TAB PO SCH ×2 (06:23→17:32)
[2019-03-01 07:06] VITALS: BP 103/66
--- NOTE | 2019-03-01 07:55 | NUR ---
Opening Note Assumed pt care from [facility] nurse. PT is a/ox4 with no s/s of distress or SOB. PT is currently sitting upright in bed with no complaints other then mild [pain; discussed availability of pain medications. Discussed POC with pt; pt verbalized understanding. Safety measures maintained with call light within reach, bed in lowest position and side rails up. Will continue to monitor for changes q1hr and prn.
[2019-03-01 09:00] VITALS: BP 103/65
[2019-03-01] MEDS: AMIODARONE HCL 200 MG TAB PO SCH ×2 (09:07→21:38)
[2019-03-01] MEDS: DIGOXIN 0.125 MG TAB PO SCH (09:09)
[2019-03-01] MEDS: ASPirin-EC 81 mg tab PO SCH (09:10)
[2019-03-01] MEDS: FAMOTIDINE 20 MG TAB PO SCH (09:10)
[2019-03-01] MEDS: MAGNESIUM OXIDE 400 MG TAB PO SCH ×2 (09:10→21:38)
[2019-03-01] MEDS: metOLazone 5 MG TAB PO SCH (09:11)
[2019-03-01] MEDS: CARVEDILOL 3.125 MG TAB PO SCH (09:12)
[2019-03-01] MEDS: BUDESONIDE (INHALATION) 0.5 MG/2 ML NEB NEB SCH ×2 (09:40→22:08)
[2019-03-01 12:36] LABS: BUN/Creatinine Ratio 25.6; Calcium 8.9 mg/dL (8.5-10.1); Potassium 4.2 mmol/L (3.5-5.1)
[2019-03-01 13:00] VITALS: BP 102/64
[2019-03-01 17:00] VITALS: BP 155/92
[2019-03-01] MEDS: traMADol HCL 50 MG TAB PO PRN (17:07)
[2019-03-01] MEDS: ATORVASTATIN 20 MG TAB PO SCH (21:38)
[2019-03-01] MEDS: TEMAZEPAM 15 MG CAP PO SCH (21:38)
[2019-03-01 22:00] VITALS: BP 103/67
[2019-03-02] MEDS: traMADol HCL 50 MG TAB PO PRN (03:46)
[2019-03-02 05:01] VITALS: BP 106/63
[2019-03-02] MEDS: LEVALBUTEROL HCL 1.25 MG/3 ML NEB NEB SCH ×5 (06:03→22:04)
[2019-03-02] MEDS: TORSEMIDE 20 MG TAB PO SCH ×2 (06:11→16:32)
--- NOTE | 2019-03-02 07:36 | NUR ---
Opening Note Assumed pt care from [facility] nurse. Pt is a/ox4 with no s/s of distress or SOB. Pt is currently laying in bed with no complaints other than mild pain; educated pt on next available pain medication. Discussed POC with pt; pt verbalized understanding. Safety measures maintained with call light within reach, bed in lowest position and side rails up. Will continue to monitor for changes q1hr and prn.
[2019-03-02 08:20] VITALS: BP 110/59
[2019-03-02] MEDS: SACUBITRIL-VALSARTAN 24mg/26mg TAB PO SCH (08:28)
[2019-03-02] MEDS: MAGNESIUM OXIDE 400 MG TAB PO SCH ×2 (08:28→22:12)
[2019-03-02] MEDS: ASPirin-EC 81 mg tab PO SCH (08:28)
[2019-03-02] MEDS: ONDANSETRON HCL 4 MG/2 ML VIAL IV PRN (08:28)
[2019-03-02] MEDS: FAMOTIDINE 20 MG TAB PO SCH (08:29)
[2019-03-02] MEDS: AMIODARONE HCL 200 MG TAB PO SCH ×2 (08:30→22:12)
[2019-03-02] MEDS: HYDROmorphone HCL 2 MG TAB PO PRN (08:30)
[2019-03-02] MEDS: DIGOXIN 0.125 MG TAB PO SCH (08:31)
[2019-03-02] MEDS: metOLazone 5 MG TAB PO SCH (08:32)
[2019-03-02] MEDS: BUDESONIDE (INHALATION) 0.5 MG/2 ML NEB NEB SCH ×2 (10:22→22:04)
--- NOTE | 2019-03-02 12:29 | NUR ---
Decreased Blood Pressure Noted Bp of 84/52 reported with a HR of 70. Assessed pt; she is asymptomatic at this time with no complaints. Encouraged the pt to increase her fluids; provided her with additional liquids. Will re-assess pt and blood pressure. Addendum: 03/02/19 at 1249 by JOSE GALVAN RN RN Reassessed pt; current BP is 83/43 with a HR of 70. Pt states that she is slightly dizzy; but is otherwise asymptomatic. Encouraged pt to intake fluids. Left a message to Dr Oakley. Awaiting a response back. Will continue to monitor. Pt advised to stay in bed during feelings of dizziness. Addendum: 03/02/19 at 1632 by JOSE GALVAN RN RN MARTHA CONTACTED BACK; ORDERS TO HOLD DIURETIC. WILL DO SO AND CONTINUE TO MONITOR. CURRENT BLOOD PRESSURE IS 93/54 HR70
[2019-03-02 12:56] VITALS: BP 84/52
--- NOTE | 2019-03-02 14:16 | NUR ---
Nutrition Follow-up Notes Wt.: 63.0 kg Pt was sleeping with no family by bedside. per nursing pt with no distress noted s/p LHC per records. pt is currently on cardiac diet with adequate PO of > 75% x6 per RN doc. Est. Needs BW (65 kg): 4566-6040 kcal (25-30 kcal/kg) 66-79 g protein (1.0-1.2 g/kg). Will continue to monitor pertinent labs and reassess nutrient need prn Labs: BUN 44 H, CREAT 1.72 H, GLU 114 H, ALB 3.2 L. Skin: Micah scale 21 low risk skin intact per RN doc GI: Pt had 1 BM today per part time flexible clerk. PES: Altered nutrition related lab values r/t acute/chronic medical condition aeb elevated BUN, Cr, BG hepatic panel, mild hypoalbuminemia Will continue to monitor PO intake, skin status, pertinent labs and weight trend. F/u in 3-5 days. Rec.: 1) Continue Cardiac diet as ordered and as tolerated. 2) Consider adding Ensure Enlive BID w/meals for supplementation for fair PO intake
[2019-03-02 16:52] VITALS: BP 93/54
[2019-03-02] MEDS: guaiFENesin-DM 100/10mg/5ml SYR PO PRN (18:53)
[2019-03-02 21:35] VITALS: BP_SYST 86; BP_SYST 91; BP_DIAS 53; BP_DIAS 59
[2019-03-02] MEDS: ATORVASTATIN 20 MG TAB PO SCH (22:12)
[2019-03-02] MEDS: TEMAZEPAM 15 MG CAP PO SCH (22:12)
[2019-03-03 05:31] VITALS: BP 101/56
[2019-03-03] MEDS: TORSEMIDE 20 MG TAB PO SCH ×2 (06:16→17:48)
[2019-03-03] MEDS: LEVALBUTEROL HCL 1.25 MG/3 ML NEB NEB SCH ×5 (07:07→21:37)
[2019-03-03] MEDS: BUDESONIDE (INHALATION) 0.5 MG/2 ML NEB NEB SCH ×2 (07:08→17:52)
[2019-03-03] MEDS: ONDANSETRON HCL 4 MG/2 ML VIAL IV PRN ×2 (08:34→18:56)
[2019-03-03] MEDS: HYDROmorphone HCL 2 MG TAB PO PRN (08:35)
[2019-03-03 09:00] VITALS: BP 116/67
[2019-03-03] MEDS: AMIODARONE HCL 200 MG TAB PO SCH ×2 (09:13→22:51)
[2019-03-03] MEDS: FAMOTIDINE 20 MG TAB PO SCH (09:14)
[2019-03-03] MEDS: DIGOXIN 0.125 MG TAB PO SCH (09:15)
[2019-03-03] MEDS: SACUBITRIL-VALSARTAN 24mg/26mg TAB PO SCH (09:15)
[2019-03-03] MEDS: MAGNESIUM OXIDE 400 MG TAB PO SCH ×2 (09:16→22:52)
[2019-03-03] MEDS: metOLazone 5 MG TAB PO SCH (09:16)
[2019-03-03] MEDS: ASPirin-EC 81 mg tab PO SCH (09:18)
[2019-03-03] MEDS: LORazepam 0.5 MG TAB PO PRN (09:27)
[2019-03-03] MEDS: guaiFENesin-DM 100/10mg/5ml SYR PO PRN (12:47)
[2019-03-03 13:00] VITALS: BP 83/44
[2019-03-03 17:00] VITALS: BP 89/57
[2019-03-03] MEDS: Ensure Enlive Strawberry 8oz Bottle PO SCH (17:49)
--- NOTE | 2019-03-03 21:30 | NUR ---
ASSESSMENT Patient began having diarrhea. She states that this is the first episode of diarrhea since admission. The patient is also complaining of feeling nauseous. She was given Zofran 3 hours prior but her symptom has returned. Will notify Dr. Oakley.
[2019-03-03 21:56] VITALS: BP 93/57
--- NOTE | 2019-03-03 22:10 | NUR ---
Received call back from Dr. Oakley with new orders to check for C Diff, stop antibiotics and to start Phenergan 10 mg IV Q6hr PRN, and Questran 4 g PO BID.
[2019-03-03] MEDS: PROMETHAZINE HCL 25 MG/ML 1ML IV PRN (22:51)
[2019-03-03] MEDS: ATORVASTATIN 20 MG TAB PO SCH (22:52)
[2019-03-03] MEDS: TEMAZEPAM 15 MG CAP PO SCH (23:25)
[2019-03-03] MEDS: CHOLESTYRAMINE 4 GM POWDER PO SCH (23:25)
[2019-03-04 04:51] VITALS: BP 111/81
[2019-03-04] MEDS: LEVALBUTEROL HCL 1.25 MG/3 ML NEB NEB SCH ×5 (05:57→22:09)
[2019-03-04] MEDS: TORSEMIDE 20 MG TAB PO SCH ×2 (06:00→17:14)
[2019-03-04 08:30] VITALS: BP 112/67
[2019-03-04] MEDS: metOLazone 5 MG TAB PO SCH (09:29)
[2019-03-04] MEDS: ASPirin-EC 81 mg tab PO SCH (09:30)
[2019-03-04] MEDS: AMIODARONE HCL 200 MG TAB PO SCH ×2 (09:30→21:55)
[2019-03-04] MEDS: SACUBITRIL-VALSARTAN 24mg/26mg TAB PO SCH (09:31)
[2019-03-04] MEDS: DIGOXIN 0.125 MG TAB PO SCH (09:31)
[2019-03-04] MEDS: FAMOTIDINE 20 MG TAB PO SCH (09:31)
[2019-03-04] MEDS: MAGNESIUM OXIDE 400 MG TAB PO SCH ×2 (09:31→21:55)
[2019-03-04] MEDS: Ensure Enlive Strawberry 8oz Bottle PO SCH ×3 (09:33→18:11)
[2019-03-04] MEDS: BUDESONIDE (INHALATION) 0.5 MG/2 ML NEB NEB SCH ×2 (09:54→18:22)
[2019-03-04] MEDS: PROMETHAZINE HCL 25 MG/ML 1ML IV PRN ×2 (10:44→19:22)
[2019-03-04] MEDS: CHOLESTYRAMINE 4 GM POWDER PO SCH (10:45)
[2019-03-04 12:29] VITALS: BP 111/65
[2019-03-04 14:36] LABS: BUN/Creatinine Ratio 33.6; Calcium 9.6 mg/dL (8.5-10.1); Potassium 3.7 mmol/L (3.5-5.1)
[2019-03-04 18:26] VITALS: BP 114/63
--- NOTE | 2019-03-04 19:20 | NUR ---
Opening Shift Note Assumed care of patient. The patient was asleep but easily arousable and alert. No S/S of distress/SOB or pain. The patient does reports feeling Nauseous and requested nausea medication. Will treat with PRN Phenergan 10 mg IV. Instructed on POC and to call for assist PRN, will continue to monitor for changes Q1hr and PRN.
[2019-03-04 21:48] VITALS: BP 113/73
[2019-03-04] MEDS: ONDANSETRON HCL 4 MG/2 ML VIAL IV PRN (21:54)
[2019-03-04] MEDS: ATORVASTATIN 20 MG TAB PO SCH (21:55)
[2019-03-04] MEDS: TEMAZEPAM 15 MG CAP PO SCH (21:55)
[2019-03-05] VITALS (7 sets, daily range): BP systolic 93–115; BP diastolic 53–77
[2019-03-05] MEDS: CHOLESTYRAMINE 4 GM POWDER PO SCH ×3 (03:44→22:32)
[2019-03-05] MEDS: LEVALBUTEROL HCL 1.25 MG/3 ML NEB NEB SCH ×5 (06:32→21:59)
[2019-03-05] MEDS: TORSEMIDE 20 MG TAB PO SCH ×3 (06:32→18:00)
--- NOTE | 2019-03-05 08:00 | NUR ---
Opening Shift Note Assumed care of patient, awake and alert. No S/S of distress/SOB or pain. Instructed on POC and to call for assist PRN, will continue to monitor for changes Q1hr and PRN.
[2019-03-05] MEDS: PROMETHAZINE HCL 25 MG/ML 1ML IV PRN ×2 (09:35→17:28)
[2019-03-05] MEDS: AMIODARONE HCL 200 MG TAB PO SCH ×2 (09:38→22:30)
[2019-03-05] MEDS: FAMOTIDINE 20 MG TAB PO SCH (09:38)
[2019-03-05] MEDS: MAGNESIUM OXIDE 400 MG TAB PO SCH ×2 (09:38→22:32)
[2019-03-05] MEDS: SACUBITRIL-VALSARTAN 24mg/26mg TAB PO SCH (09:39)
[2019-03-05] MEDS: ASPirin-EC 81 mg tab PO SCH (09:39)
[2019-03-05] MEDS: metOLazone 5 MG TAB PO SCH (09:39)
[2019-03-05] MEDS: DIGOXIN 0.125 MG TAB PO SCH (09:39)
[2019-03-05] MEDS: POTASSIUM CHL 20 Meq TABLET PO SCH (09:40)
[2019-03-05] MEDS: Ensure Enlive Strawberry 8oz Bottle PO SCH ×3 (09:45→18:00)
[2019-03-05] MEDS: BUDESONIDE (INHALATION) 0.5 MG/2 ML NEB NEB SCH ×2 (10:51→21:59)
[2019-03-05] MEDS: ONDANSETRON HCL 4 MG/2 ML VIAL IV PRN (14:30)
--- NOTE | 2019-03-05 16:34 | NUR ---
Discharge planning per consult, patient has orders for home health on dc. Presented patient with a choice letter, she choose: [facility], [facility], and [facility]. Patient did state that she did not want it and I advised that I still have to execute the order but she had the right to refuse when they initiate contact;she verbalized understanding. Order was originally for [facility], however when [facility] health was contacted, rep [facility] advised that they could not accept patient due to insurance. Order revised for home health. Referral was sent to [facility], placed a follow up call, spoke with Dorie and was advised that they will accept the patient and start of care will be within 24-48 hours of discharge. Obtained auth from [facility] [id number]. Nurse Childs was advised of the dc plan. Addendum: 03/05/19 at 1640 by MADELYN KENDALL Amended: Links added.
--- NOTE | 2019-03-05 17:28 | NUR ---
Patient complained of vomiting. Medicated with Phenergan IV as ordered.
--- NOTE | 2019-03-05 18:12 | NUR ---
Patient stated feeling better after administration of Phenergan IV. Stated she is ready to go home. Will contact patient's daughter Dilcia.
--- NOTE | 2019-03-05 18:16 | NUR ---
Unable to get a hold of Dilcia, left a message to patient's daughter Dilcia #[phone]. Patient is ready for discharge. Will try calling again.
--- NOTE | 2019-03-05 18:25 | NUR ---
Patient vomited again. Left a message to Dr. Oakley. Patient stated a bit nauseated still and requested if can be discharged in AM.
--- NOTE | 2019-03-05 18:48 | NUR ---
No reply from Dr. Oakley yet.
--- NOTE | 2019-03-05 19:10 | NUR ---
Gave reports to slot shift supervisor RN. Handed the discharge papers. Patient's daughter Dilcia is supposed to pick her up but not replying. Still waiting for call back from Dr. Oakley re: patient vomited 2x and request to be discharged in AM. car shifter cupola charger Belkis made aware of this, instructions received. Reports also given to slot shift supervisor RN to inform again Dr. Oakley. Patient stated still nauseated and weak.
--- NOTE | 2019-03-05 19:10 | NUR ---
OPENING NOTES RECEIVED REPORT FROM DAY SHIFT NURSE ASHLY. PT IS ALERT AND ORIENTATED X 4 WITH NO S/S OF SOB. PT COMPLAINTS OF PAIN 6/10 BACK. AND REPORTS NAUSEA AND WEAKNESS. PT IS UNABLE TO SIT UP ON BED. DISCHARGED WAS ORDERED FOR TODAY. WILL MAKE MD THOMAS AWARE OF CONDITION. BED IS IN LOWEST POSITION WITH SIDE RAILS UP X 2. BED BRAKES ARE LOCKED AND CALL LIGHT IS WITH IN REACH. HOB IS 30 DEGREES. WILL MONITOR Q 1HR.
--- NOTE | 2019-03-05 19:47 | NUR ---
MD HELTON CALLED BACK AND ORDERED TO HOLD DISCHARGE TIL TOMORROW.
[2019-03-05] MEDS: ATORVASTATIN 20 MG TAB PO SCH (22:31)
[2019-03-05] MEDS: TEMAZEPAM 15 MG CAP PO SCH (22:32)
--- NOTE | 2019-03-06 02:20 | NUR ---
CLOSING NOTES ENDORSED CARE TO [facility] NURSEJEREL.
[2019-03-06 05:00] VITALS: BP 109/68
[2019-03-06] MEDS: TORSEMIDE 20 MG TAB PO SCH ×3 (05:45→17:59)
[2019-03-06] MEDS: LEVALBUTEROL HCL 1.25 MG/3 ML NEB NEB SCH ×5 (06:54→23:06)
[2019-03-06] MEDS: Ensure Enlive Strawberry 8oz Bottle PO SCH ×3 (08:00→18:00)
--- NOTE | 2019-03-06 08:00 | NUR ---
RECEIVED PATIENT ALERT AND ORIENTED X3, NOT IN DISTRESS, LS CLEAR IN BILATERAL UPPER AND DIMINISHED IN LOWER LUNG LOBES, RR=18, SAT=97%, DEEP BREATHING AND COUGHING ENCOURAGED, DEMONSTRATED UNDERSTANDING, HEART V PACE BEATS R=74 ON TELE MONITOR, ABDOMEN SOFT AND FLAT WITH ACTIVE BS, LAST BM=03/05/19 REPORTED, SKIN INTACT WARM TO TOUCH, RADIAL AND PEDAL PULSES PALPABLE, CAP REFILL<3 SECONDS, HEAD OF BED ELEVATED, BED ON LOW POSITION, RAILS UP X2, CALL LIGHT ON REACH, PENDING D/C HOME, WILL CONTINUE MONITORING.
[2019-03-06 09:00] VITALS: BP 101/67
[2019-03-06] MEDS: ONDANSETRON HCL 4 MG/2 ML VIAL IV PRN ×2 (09:55→19:00)
[2019-03-06] MEDS: traMADol HCL 50 MG TAB PO PRN (09:55)
[2019-03-06] MEDS: AMIODARONE HCL 200 MG TAB PO SCH ×2 (09:56→21:54)
[2019-03-06] MEDS: ASPirin-EC 81 mg tab PO SCH (09:57)
[2019-03-06] MEDS: POTASSIUM CHL 20 Meq TABLET PO SCH (09:58)
[2019-03-06] MEDS: SACUBITRIL-VALSARTAN 24mg/26mg TAB PO SCH (09:58)
[2019-03-06] MEDS: DIGOXIN 0.125 MG TAB PO SCH (09:59)
[2019-03-06] MEDS: FAMOTIDINE 20 MG TAB PO SCH (10:00)
[2019-03-06] MEDS: metOLazone 5 MG TAB PO SCH (10:00)
[2019-03-06] MEDS: MAGNESIUM OXIDE 400 MG TAB PO SCH ×2 (10:00→21:55)
[2019-03-06] MEDS: BUDESONIDE (INHALATION) 0.5 MG/2 ML NEB NEB SCH ×2 (11:04→23:06)
[2019-03-06] MEDS: CHOLESTYRAMINE 4 GM POWDER PO SCH ×2 (11:55→22:55)
[2019-03-06] MEDS: CARISOPRODOL 350 MG TAB PO PRN (11:55)
[2019-03-06] MEDS: PROMETHAZINE HCL 25 MG/ML 1ML IV PRN ×2 (11:56→20:09)
--- NOTE | 2019-03-06 12:33 | NUR ---
REFUSED TO EAT BREAKFAST, C/O NAUSEA AND PAIN L=12/03, ZOFRAN IV PRN AND ULTRAM PO PRN WAS GIVEN, PAIN AND NAUSEA DID NOT SUBSIDE, SOMA PO PRN AND PHENERGAN IV PRN WAS GIVEN, ABLE TO BARLEY ABLE TO USE BED SIDE COMMODE WITH ASSISTANCE, ASKING TO D/C HOME WITH [facility], DR. THOMAS WAS CALLED FOR UPDATES AND FOLLOW UP, LEFT A MESSAGE, WAITING FOR CALL BACK.
[2019-03-06 13:00] VITALS: BP 105/78
--- NOTE | 2019-03-06 14:00 | NUR ---
DR. THOMAS CALLED BACK AND STOP D/C WAS ORDERED.
--- NOTE | 2019-03-06 15:15 | NUR ---
Nutrition Follow-up Notes Wt.: 62.6 kg Pt's asleep, no immediate family member at bedside during rounds this morning. Noted pt c/o nausea and pain earlier, currently on Cardiac: 2 gms Na, Low Chol, Low Fat diet with Ensure Enlive 1 carton TID, has fair PO aeb 60% ave. consumed meals (x6) in last 2.5 days. Est. Needs BW (65 kg): 5936-6506 kcal (25-30 kcal/kg) 66-79 g protein (1.0-1.2 g/kg). Will continue to monitor pertinent labs and reassess nutrient need prn Labs: No new labs 03/04/19 Gluc 132 H. Na 134 L, Cl 90 L, CO2 37 H, Ca 7.6 L, Phos 2.26 H; Tpro 6.1 L, Alb 3.2 L. Skin: Micah scale 19, low risk, pt's skin intact per RN doc GI: Pt had 1 BM yesterday per meat apprentice. PES: Altered nutrition related lab values r/t acute/chronic medical condition aeb elevated BUN, Cr, BG hepatic panel, mild hypoalbuminemia Will continue to monitor PO intake, skin status, pertinent labs and weight trend. F/u in 3 to 5 days. Rec.: 1.) Continue close supervision and feeding assistance prn with meals. 2.) Consider to continue monitoring pertinent labs prn; If Albumin continues trending down, consider Prostat 1 pkt BID. 3.) Refer to RD for further nutrition educ. and weight monitoring upon discharge. 4.) Continue current plan of care.
[2019-03-06 17:00] VITALS: BP 93/65
[2019-03-06] MEDS: MORPHINE SULF INJ 2 MG/ML SYRINGE 1ML IV PRN (19:02)
--- NOTE | 2019-03-06 19:10 | NUR ---
Opening Shift Note Assumed care of patient, awake and alert. No S/S of distress/SOB or pain. Safety measures in place bed in lowest position, side rails x2 up, and call light within reach. Instructed on POC and to call for assist PRN, will continue to monitor for changes Q1hr and PRN.
--- NOTE | 2019-03-06 19:32 | NUR ---
TOLERATED ONLY ENSURE FOR LUNCH AND REFUSE DIET TRAY, NOT IN DISTRESS, RESTING ON BED, REPORT WAS GIVEN TO THE FINANCIAL SYSTEMS DIRECTOR RN.
[2019-03-06] MEDS: TEMAZEPAM 15 MG CAP PO SCH (21:54)
[2019-03-06] MEDS: ATORVASTATIN 20 MG TAB PO SCH (21:55)
[2019-03-06 22:00] VITALS: BP 115/55
--- NOTE | 2019-03-06 23:19 | NUR ---
RT NOTE PT CR IS 39-42 AT THIS TIME. PT IS ALERT AND ANSWER QUESTIONS APPROPRIATELY. RT WILL MAKE SURE RN KNOWS. PT IS ON TELE.
--- NOTE | 2019-03-06 23:20 | NUR ---
RT informed patient HR was 39-42 via pulse oximeter, reassessed patient's HR via apical auscultation 82, and radial and pedal palpation HR 84. Will continue to monitor.
--- NOTE | 2019-03-07 04:08 | NUR ---
Patient had an episode of sinus tachycardia with the HR 202. Patient is asymptomatic. Apical HR 82. Will continue to monitor.
--- NOTE | 2019-03-07 04:49 | NUR ---
Patient's HR 39. Assessed patient BP 104/62, HR 70, RR 18, O2 95%. Patient is asymptomatic and denies discomfort. Will continue to monitor.
[2019-03-07 05:00] VITALS: BP 104/62
--- NOTE | 2019-03-07 05:32 | NUR ---
Patient had an episode of VFIB, patient is asymptomatic. Contacted Dr. Oakley awaiting orders.
[2019-03-07] MEDS: TORSEMIDE 20 MG TAB PO SCH ×3 (06:00→17:39)
--- NOTE | 2019-03-07 06:15 | NUR ---
Paged Dr. Oakley, patient had another VFIB occurrence. Patient is asymptomatic. Will continue to monitor.
[2019-03-07] MEDS: LEVALBUTEROL HCL 1.25 MG/3 ML NEB NEB SCH ×5 (06:55→23:00)
--- NOTE | 2019-03-07 07:35 | NUR ---
Opening Shift Note: Assumed care of patient, asleep in bed. No S/S of distress/SOB or pain. Safety precaution in place. Bed in lowest locked position, side rails up x 2, call light with reach. Will instruct patient on POC, will continue to monitor for changes Q1hr and PRN.
[2019-03-07 08:00] VITALS: BP 91/69
[2019-03-07] MEDS: Ensure Enlive Strawberry 8oz Bottle PO SCH ×3 (08:00→18:00)
--- NOTE | 2019-03-07 09:03 | NUR ---
Patient refused breakfast.
[2019-03-07] MEDS: AMIODARONE HCL 200 MG TAB PO SCH ×2 (09:56→21:50)
[2019-03-07] MEDS: POTASSIUM CHL 20 Meq TABLET PO SCH (09:57)
[2019-03-07] MEDS: metOLazone 5 MG TAB PO SCH (09:58)
[2019-03-07] MEDS: DIGOXIN 0.125 MG TAB PO SCH (09:59)
[2019-03-07] MEDS: SACUBITRIL-VALSARTAN 24mg/26mg TAB PO SCH (09:59)
[2019-03-07] MEDS: MAGNESIUM OXIDE 400 MG TAB PO SCH ×2 (10:00→21:50)
[2019-03-07] MEDS: ASPirin-EC 81 mg tab PO SCH (10:00)
[2019-03-07] MEDS: FAMOTIDINE 20 MG TAB PO SCH (10:01)
[2019-03-07] MEDS: BUDESONIDE (INHALATION) 0.5 MG/2 ML NEB NEB SCH ×2 (10:24→23:00)
--- NOTE | 2019-03-07 11:22 | NUR ---
Transfer: attempted to call [facility] to see about other [facility] facilities, no answer Addendum: 03/09/19 at 1105 by Desiree Horne RN CM wrong pt
[2019-03-07] MEDS: CHOLESTYRAMINE 4 GM POWDER PO SCH ×2 (11:52→23:16)
[2019-03-07 12:00] VITALS: BP 93/63
[2019-03-07] MEDS: ONDANSETRON HCL 4 MG/2 ML VIAL IV PRN ×2 (12:16→19:42)
[2019-03-07] MEDS: PROMETHAZINE HCL 25 MG/ML 1ML IV PRN ×2 (15:40→23:16)
--- NOTE | 2019-03-07 15:45 | NUR ---
Patient stating pain and nausea. Medications given. Addendum: 03/07/19 at 1609 by MERCY GALVAN RN RN Patient reassessed. Patient states pain is better but is still nausea. Will continue to monitor.
[2019-03-07] MEDS: MORPHINE SULF INJ 2 MG/ML SYRINGE 1ML IV PRN ×2 (15:47→23:16)
--- NOTE | 2019-03-07 16:56 | NUR ---
Patient resting comfortably in bed. No S/S of distress or pain at this time. Will continue to monitor.
[2019-03-07 17:16] VITALS: BP 103/65
--- NOTE | 2019-03-07 19:50 | NUR ---
Opening Shift Note Assumed care of patient, awake and alert. No S/S of distress/SOB or pain. Instructed on POC and to call for assist PRN. Bed in lowest locked position, call light within reach, side rails up x2, fall precautions in place. Will continue to monitor for changes Q1hr and PRN.
[2019-03-07 21:00] VITALS: BP 103/54
[2019-03-07] MEDS: ATORVASTATIN 20 MG TAB PO SCH (21:50)
[2019-03-07] MEDS: TEMAZEPAM 15 MG CAP PO SCH (21:50)
[2019-03-08] MEDS: ONDANSETRON HCL 4 MG/2 ML VIAL IV PRN ×3 (02:02→14:30)
[2019-03-08 03:14] VITALS: BP 103/54
[2019-03-08 05:00] VITALS: BP 129/67
[2019-03-08] MEDS: MORPHINE SULF INJ 2 MG/ML SYRINGE 1ML IV PRN ×5 (06:18→23:49)
[2019-03-08] MEDS: TORSEMIDE 20 MG TAB PO SCH ×2 (06:19→10:00)
[2019-03-08] MEDS: PROMETHAZINE HCL 25 MG/ML 1ML IV PRN ×2 (06:19→19:48)
[2019-03-08] MEDS: LEVALBUTEROL HCL 1.25 MG/3 ML NEB NEB SCH ×5 (06:40→22:11)
--- NOTE | 2019-03-08 07:25 | NUR ---
Opening Shift Note: Assumed care of patient, asleep in bed. No S/S of distress/SOB or pain. Bed in lowest locked position, side rails up x 2, call light within reach. Room free and clear of any fall risk. Patient will be instructed on POC and to call for assist PRN, will continue to monitor for changes Q1hr and PRN.
[2019-03-08 08:00] VITALS: BP 96/57
[2019-03-08] MEDS: Ensure Enlive Strawberry 8oz Bottle PO SCH ×3 (09:09→18:01)
--- NOTE | 2019-03-08 09:09 | NUR ---
Patient refused breakfast. Would only drink ensure.
[2019-03-08] MEDS: POTASSIUM CHL 20 Meq TABLET PO SCH (09:52)
[2019-03-08] MEDS: BUDESONIDE (INHALATION) 0.5 MG/2 ML NEB NEB SCH ×2 (09:52→18:23)
[2019-03-08] MEDS: metOLazone 5 MG TAB PO SCH (10:00)
[2019-03-08] MEDS: FAMOTIDINE 20 MG TAB PO SCH (10:03)
[2019-03-08] MEDS: SACUBITRIL-VALSARTAN 24mg/26mg TAB PO SCH (10:03)
[2019-03-08] MEDS: ASPirin-EC 81 mg tab PO SCH (10:03)
[2019-03-08] MEDS: DIGOXIN 0.125 MG TAB PO SCH (10:04)
[2019-03-08] MEDS: AMIODARONE HCL 200 MG TAB PO SCH ×2 (10:04→11:30)
[2019-03-08] MEDS: MAGNESIUM OXIDE 400 MG TAB PO SCH ×2 (10:04→21:29)
[2019-03-08] MEDS: CHOLESTYRAMINE 4 GM POWDER PO SCH ×2 (10:31→23:02)
--- NOTE | 2019-03-08 11:19 | NUR ---
IV insertion: IV access obtained, via clean sterile technique by inserting 22 gauge catheter at LEFT FOOT after 1 attempt BY LOGAN HENNESSY. IV secured properly. No trauma to site. Patient tolerated well. Two attempts were made by this nurse.
--- NOTE | 2019-03-08 11:23 | NUR ---
IV removal: IV DC'd with clean sterile technique, catheter fully intact. Pressure dressing applied to site. Patient tolerated well.
[2019-03-08] MEDS ORDERED: TORSEMIDE 20 MG TAB PO SCH (11:30)
[2019-03-08 12:00] VITALS: BP 134/67
--- NOTE | 2019-03-08 12:00 | NUR ---
Assumed care of patient at this time. Verbal report received from CARLENE Garza.
--- NOTE | 2019-03-08 12:00 | NUR ---
Due to staffing purposes, care is endorsed to [facility].
[2019-03-08 12:07] LABS: Basophils # (auto) 0.1 uL; Eosinophils # (auto) 0.2 uL; Eosinophils % (auto) 1.8 % (0.0-7.0)
[2019-03-08 12:08] LABS: Basophils % (auto) 0.7 % (0.0-2.0); Hematocrit 52.4 % (36.0-46.0); Hemoglobin 17.7 g/dL (12.2-16.2); Lymphocytes # (auto) 1.4 uL; Lymphocytes % (auto) 10.8 % (10.0-50.0); Mean Corpuscular Hemoglobin 28.7 pg (28.0-32.0); Mean Corpuscular Hgb Conc. 33.7 g/dL (32.0-36.0); Mean Corpuscular Volume 84.9 fL (80.0-100.0); Monocytes # (auto) 1.3 uL; Monocytes % (auto) 10.2 % (0.0-12.0); Neutrophils % (auto) 76.5 % (37.0-80.0); Nucleated Red Blood Cells % 0.3 %; Platelet Count (auto) 338 10^3/uL (140-450); Red Blood Cells 6.17 10^6/uL (4.0-5.20); Red Cell Distribution Width 15.7 % (11.8-14.3); White Blood Cell 13.1 10^3/uL (4.4-10.8)
[2019-03-08 12:33] LABS: Albumin 3.9 g/dL (3.4-5.0); Potassium 3.3 mmol/L (3.5-5.1)
[2019-03-08 12:36] LABS: BUN/Creatinine Ratio 45.9; Total Protein 8.3 g/dL (6.4-8.2)
--- NOTE | 2019-03-08 13:30 | NUR ---
Dr. Oakley informed of pt's BUN of 105, and Digoxin level of 2.4. Orders received.
[2019-03-08] MEDS: LORazepam 0.5 MG TAB PO PRN (14:17)
[2019-03-08 17:00] VITALS: BP 109/68
[2019-03-08] MEDS ORDERED: SODIUM CHLORIDE 0.9% 500 ML IV ONE (17:00)
--- NOTE | 2019-03-08 19:30 | NUR ---
Opening Shift Note Assumed care of patient, awake and alert. No S/S of distress/SOB but c/o pain 8/10 and nausea. Patient on 3L nasal canula. Bed locked in lowest position, side rails upx2, call light within reach. Instructed on POC and to call for assist PRN, will continue to monitor for changes Q1hr and PRN.
[2019-03-08 21:00] VITALS: BP 120/59
[2019-03-08] MEDS: ATORVASTATIN 20 MG TAB PO SCH (21:29)
[2019-03-08] MEDS: TEMAZEPAM 15 MG CAP PO SCH (21:30)
[2019-03-09] MEDS: PROMETHAZINE HCL 25 MG/ML 1ML IV PRN ×3 (02:54→18:47)
[2019-03-09 04:30] VITALS: BP 125/74
[2019-03-09] MEDS: MORPHINE SULF INJ 2 MG/ML SYRINGE 1ML IV PRN ×5 (04:39→23:10)
--- NOTE | 2019-03-09 04:59 | NUR ---
Patient c/o chest discomfort 02/03. EKG done per protocol shows ventricular paced at 70bpm, placed in chart. Medicated patient with Morphine 1mg IV PRN for pain per MD order. Will continue to monitor.
[2019-03-09] MEDS: LEVALBUTEROL HCL 1.25 MG/3 ML NEB NEB SCH ×5 (06:24→22:21)
--- NOTE | 2019-03-09 07:44 | NUR ---
RECEIVED REPORT AND ASSUMED CARE OF PT. A/OX4. DENIED S/S ACUTE DISTRESS. UPDATE PT WITH POC. BED AT LOWEST POSITION. CALL LIGHT AND BELONGINGS WITHIN REACH. WILL CONT TO MONITOR.
[2019-03-09 08:00] VITALS: BP 102/59
[2019-03-09] MEDS: AMIODARONE HCL 200 MG TAB PO SCH (10:03)
[2019-03-09] MEDS: FAMOTIDINE 20 MG TAB PO SCH (10:04)
[2019-03-09] MEDS: SACUBITRIL-VALSARTAN 24mg/26mg TAB PO SCH (10:04)
[2019-03-09] MEDS: POTASSIUM CHL 20 Meq TABLET PO SCH (10:06)
[2019-03-09] MEDS: MAGNESIUM OXIDE 400 MG TAB PO SCH ×2 (10:06→21:29)
[2019-03-09] MEDS: ASPirin-EC 81 mg tab PO SCH (10:07)
[2019-03-09] MEDS: Ensure Enlive Strawberry 8oz Bottle PO SCH ×3 (10:08→18:14)
[2019-03-09] MEDS: BUDESONIDE (INHALATION) 0.5 MG/2 ML NEB NEB SCH ×2 (10:29→22:21)
[2019-03-09] MEDS: CHOLESTYRAMINE 4 GM POWDER PO SCH ×2 (11:33→23:09)
[2019-03-09 12:00] VITALS: BP 91/56
--- NOTE | 2019-03-09 12:50 | NUR ---
Nutrition Follow-up Notes Wt.: 65.1 kg as of yesterday Pt's on oxygen via nasal cannula, RT at bedside when rounded earlier. Noted pt c/o chest discomfort 9/10 early this morning, currently on Cardiac: 2 gms Na, Low Chol, Low Fat diet with Ensure Enlive 1 carton TID, has fair PO aeb 70% ave. consumed meals (x6) in last 2.5 days. Est. Needs BW (65 kg): 1021-9336 kcal (25-30 kcal/kg) 66-79 g protein (1.0-1.2 g/kg). Will continue to monitor pertinent labs and reassess nutrient need prn Labs: Na 133 L, K 3.3 L, Cl 81 L, CO2 40 H, BUN 105 H, Cr 2.29 H, AST 51 H, ALP 140 H, Tpro 8.3 L Skin: Micah scale 19, low risk, pt's skin intact per mixer wet pour. GI: Pt had 1 BM this morning per mixer wet pour. PES: Altered nutrition related lab values r/t acute/chronic medical condition aeb elevated BUN, Cr, BG hepatic panel, mild hypoalbuminemia Will continue to monitor PO intake, skin status, pertinent labs and weight trend. F/u in 3 to 5 days. Rec.: 1.) Continue close supervision and feeding assistance prn with meals. 2.) If renal labs continue trending up, consider Renal Specific: 60 gms/meal in addition to current therapeutic diet. 3.) Refer to RD for further nutrition educ. and weight monitoring upon discharge. 4.) Continue current plan of care.
[2019-03-09] MEDS: ONDANSETRON HCL 4 MG/2 ML VIAL IV PRN (14:43)
[2019-03-09 16:46] VITALS: BP 105/58
--- NOTE | 2019-03-09 19:40 | NUR ---
Opening Shift Note Assumed care of patient, awake and alert. No S/S of distress/SOB or pain. Patient on 3L nasal canula. Bed locked in lowest position, side rails upx2, call light within reach. Instructed on POC and to call for assist PRN, will continue to monitor for changes Q1hr and PRN.
[2019-03-09] MEDS: TEMAZEPAM 15 MG CAP PO SCH (21:29)
[2019-03-09] MEDS: ATORVASTATIN 20 MG TAB PO SCH (21:29)
[2019-03-09 22:00] VITALS: BP 107/60
--- NOTE | 2019-03-09 22:56 | NUR ---
Patient states she had a fall. Upon assessing patient was in the bed doing her breathing treatment but states that prior to that she got up and tried to walk and fell but got up and walked back to bed. Full assessment done, skin intact. BP 107/60, HR 75. Patient complaining of chronic pain and wants her morphine but told her it isn't due until in another hour. Full bed linen change. Fall precautions in place with side rails upx2, bed in lowest position and bed alarm on. Will continue to monitor patient. Addendum: 03/10/19 at 0006 by KIRSTIE BERNAL RN Post fall BP is 111/59. Dr. Oakley was notified about the incident. Addendum: 03/10/19 at 0541 by KIRSTIE BERNAL RN Patient complained of soreness from sacral area, placed a x-ray per protocol. Notified Dr. Oakley.
[2019-03-10] MEDS: MORPHINE SULF INJ 2 MG/ML SYRINGE 1ML IV PRN ×5 (03:46→22:28)
[2019-03-10] MEDS: PROMETHAZINE HCL 25 MG/ML 1ML IV PRN ×2 (03:46→13:17)
[2019-03-10 05:26] VITALS: BP 102/59
[2019-03-10] MEDS: LEVALBUTEROL HCL 1.25 MG/3 ML NEB NEB SCH ×5 (05:43→22:20)
[2019-03-10] MEDS: BUDESONIDE (INHALATION) 0.5 MG/2 ML NEB NEB SCH ×2 (05:43→20:02)
--- NOTE | 2019-03-10 07:15 | NUR ---
Opening Shift Note: Assumed care of patient. Patient is asleep in bed. Patient has red fall risk socks on, fall risk band on. Bed in lowest locked position, side rails up times 2, call light within reach. Bed alarm is on. No S/S of distress/SOB or pain. Patient will be instructed on POC and to call for assist PRN, will continue to monitor for changes Q1hr and PRN.
--- NOTE | 2019-03-10 08:03 | NUR ---
Patient off unit for xray.
--- NOTE | 2019-03-10 08:27 | NUR ---
Patient back to from xray. Patient back in bed, bed alarm set. Will continue to monitor patient.
[2019-03-10 08:30] VITALS: BP 118/69
[2019-03-10] MEDS: ONDANSETRON HCL 4 MG/2 ML VIAL IV PRN ×2 (09:09→17:53)
[2019-03-10] MEDS: Ensure Enlive Strawberry 8oz Bottle PO SCH ×3 (09:10→19:16)
[2019-03-10] MEDS: CHOLESTYRAMINE 4 GM POWDER PO SCH ×2 (10:52→22:27)
[2019-03-10] MEDS: SACUBITRIL-VALSARTAN 24mg/26mg TAB PO SCH (10:53)
[2019-03-10] MEDS: FAMOTIDINE 20 MG TAB PO SCH (10:53)
[2019-03-10] MEDS: AMIODARONE HCL 200 MG TAB PO SCH (10:53)
[2019-03-10] MEDS: MAGNESIUM OXIDE 400 MG TAB PO SCH ×2 (10:54→22:27)
[2019-03-10] MEDS: POTASSIUM CHL 20 Meq TABLET PO SCH (10:54)
[2019-03-10] MEDS: ASPirin-EC 81 mg tab PO SCH (10:54)
[2019-03-10 11:28] LABS: BUN/Creatinine Ratio 41.6; Calcium 8.8 mg/dL (8.5-10.1); Potassium 3.5 mmol/L (3.5-5.1)
[2019-03-10 12:30] VITALS: BP 99/51
[2019-03-10 16:34] VITALS: BP 101/57
[2019-03-10 22:00] VITALS: BP 95/59
[2019-03-10] MEDS: ATORVASTATIN 20 MG TAB PO SCH (22:27)
[2019-03-10] MEDS: TEMAZEPAM 15 MG CAP PO SCH (22:27)
[2019-03-11 01:51] VITALS: BP 101/57
[2019-03-11 05:56] VITALS: BP 132/68
[2019-03-11] MEDS: LEVALBUTEROL HCL 1.25 MG/3 ML NEB NEB SCH ×4 (06:40→18:53)
[2019-03-11] MEDS: Ensure Enlive Strawberry 8oz Bottle PO SCH ×2 (07:39→12:00)
--- NOTE | 2019-03-11 07:46 | NUR ---
PATIENT ROUNDS PATIENT LYING IN BED, NO DISTRESS NOTED, BED IN LOWEST POSITION, SIDE RAILS UP X2 CALL LIGHT WITHIN REACH. WILL CONTINUE TO MONITOR AND INITIATE PLAN OF CARE.
[2019-03-11 08:00] VITALS: BP 104/59
[2019-03-11] MEDS: ASPirin-EC 81 mg tab PO SCH (10:15)
[2019-03-11] MEDS: AMIODARONE HCL 200 MG TAB PO SCH (10:15)
[2019-03-11] MEDS: FAMOTIDINE 20 MG TAB PO SCH (10:16)
[2019-03-11] MEDS: POTASSIUM CHL 20 Meq TABLET PO SCH (10:16)
[2019-03-11] MEDS: MAGNESIUM OXIDE 400 MG TAB PO SCH (10:16)
[2019-03-11] MEDS: CHOLESTYRAMINE 4 GM POWDER PO SCH (10:16)
[2019-03-11] MEDS: SACUBITRIL-VALSARTAN 24mg/26mg TAB PO SCH (10:16)
[2019-03-11] MEDS: BUDESONIDE (INHALATION) 0.5 MG/2 ML NEB NEB SCH (10:34)
[2019-03-11 12:00] VITALS: BP 101/67
--- NOTE | 2019-03-11 15:39 | NUR ---
Discharge planning per SS consult, patient has orders for SNF placement. On encounter to advise patient of the recommendation for SNF placement, patient refused SNF placement, she said she has a home health. When I asked which company she was using, she advised that she has a personal career development counselor and referenced a male. Nurse Selene was advised of the refusal to advise Dr. Oakley.
--- NOTE | 2019-03-11 16:30 | NUR ---
DC INFORMED DR THOMAS OF PATIENT REFUSING SNF PLACEMENT AND UPDATED ON PATIENT HAVING A CAREGIVER, DR THOMAS ORDERED TO DISCHARGE PATIENT HOME AND TO CONTINUE CURRENT MEDICATIONS.
[2019-03-11 17:00] VITALS: BP 110/57
--- NOTE | 2019-03-11 17:06 | NUR ---
IV removal IV DC'd with clean sterile technique, catheter fully intact. Pressure dressing applied to site. Patient tolerated well. NOTE:
--- NOTE | 2019-03-11 17:11 | NUR ---
[facility] NURSE ANESTHETIST PAGED FOR [facility]. PATIENT DOES NOT HAVE TRANSPORTATION HOME.
--- NOTE | 2019-03-11 17:33 | NUR ---
[facility] ETA [id number]
--- NOTE | 2019-03-11 17:55 | NUR ---
Discharge instructions given as ordered. Encourage to follow up with PMD as instructed. All questions and concerns addressed. Patient verbalized understanding. Medication reconciliation form completed and copy given to patient. IV removed with catheter intact, pressure dressing applied. Telemetry unit returned to ICU. Patient taken to [facility] vehicle via wheelchair with all personal belongings, accompanied by staff member. No distress noted at time of departure.
[2019-03-12] MEDS ORDERED: TORSEMIDE 20 MG TAB PO SCH (10:00)
[2019-03-12] MEDS ORDERED: POTASSIUM CHL 10 Meq TABLET PO SCH (10:00)
== END 2019-03-11 19:06 | disposition home health service (06) | DRG 291 ==
LOC: EDBD 23:47 → ER 23:53 → TELE 23:54 → TELE-EAST 02-23 11:29
PROVIDERS: ADMIT Nurse Practitioner Acute Care; ATTEND Internal Medicine Cardiovascular Disease
DX: I13.0 Hypertensive heart and chronic kidney disease with heart failure and stage 1 through stage 4 chronic kidney disease, or unspecified chronic kidney disease (principal); I50.43 Acute on chronic combined systolic (congestive) and diastolic (congestive) heart failure; J96.20 Acute and chronic respiratory failure, unspecified whether with hypoxia or hypercapnia; J18.9 Pneumonia, unspecified organism; J44.1 Chronic obstructive pulmonary disease with (acute) exacerbation; E44.0 Moderate protein-calorie malnutrition; J44.0 Chronic obstructive pulmonary disease with (acute) lower respiratory infection; N39.0 Urinary tract infection, site not specified; I25.10 Atherosclerotic heart disease of native coronary artery without angina pectoris; Z95.1 Presence of aortocoronary bypass graft; I25.5 Ischemic cardiomyopathy; E78.5 Hyperlipidemia, unspecified; F41.9 Anxiety disorder, unspecified; K21.9 Gastro-esophageal reflux disease without esophagitis; D64.9 Anemia, unspecified; F17.200 Nicotine dependence, unspecified, uncomplicated; I95.9 Hypotension, unspecified; T46.0X5A Adverse effect of cardiac-stimulant glycosides and drugs of similar action, initial encounter; F32.9 Major depressive disorder, single episode, unspecified; I48.91 Unspecified atrial fibrillation; N18.3 Chronic kidney disease, stage 3 (moderate); Z90.710 Acquired absence of both cervix and uterus; Z79.891 Long term (current) use of opiate analgesic; Z68.24 Body mass index [BMI] 24.0-24.9, adult; Z88.1 Allergy status to other antibiotic agents; Z88.5 Allergy status to narcotic agent; Z82.49 Family history of ischemic heart disease and other diseases of the circulatory system; Z91.14 Patient's other noncompliance with medication regimen; Z83.3 Family history of diabetes mellitus; Z90.49 Acquired absence of other specified parts of digestive tract; Y92.89 Other specified places as the place of occurrence of the external cause
CPT/HCPCS: 36415; 36600; 71045; 72220; 80048; 80053; 80162; 82805; 83880; 84484; 85025; 85379; 85610; 85730; 87081; 87493; 93005; 93970; 94640; 96374; 96375; G0378; J2405

== ENCOUNTER 2020-05-29 | Inpatient (IN) | payer MEDICARE, MEDICAID ==
[~2020-05-29] VITALS: Ht 165.1 cm; Wt 67.5 kg
[~2020-05-29] MED LIST changes: -ASP81EC PO; +ASPI-394 PO; -LORA0.5T12 PO; +LORA0.5T20 PO
[2020-05-29 01:48] LABS: Basophils # (auto) 0.1 10 ^3/uL (0-0.2); Eosinophils # (auto) 0.1 10 ^3/uL (0-0.8); Eosinophils % (auto) 0.9 % (0.0-7.0); Hematocrit 48.8 % (36.0-46.0); Hemoglobin 16.5 g/dL (12.2-16.2); Lymphocytes # (auto) 1.8 10 ^3/uL (0.4-5.4); Lymphocytes % (auto) 30.3 % (10.0-50.0); Mean Corpuscular Hemoglobin 30.3 pg (28.0-32.0); Mean Corpuscular Hgb Conc. 33.7 g/dL (32.0-36.0); Mean Corpuscular Volume 89.8 fL (80.0-100.0); Monocytes % (auto) 17.1 % (0.0-12.0); Neutrophils # (auto) 2.9 10 ^3/uL (1.6-8.6); Neutrophils % (auto) 50.7 % (37.0-80.0); Nucleated Red Blood Cells % 0.4 %; Platelet Count (auto) 248 10^3/uL (140-450); Red Blood Cells 5.43 10^6/uL (4.0-5.20); Red Cell Distribution Width 14.6 % (11.8-14.3); White Blood Cell 5.8 10^3/uL (4.4-10.8)
[2020-05-29 02:04] LABS: Albumin 3.2 g/dL (3.4-5.0); Anion Gap 7 (5-15); Blood Urea Nitrogen 29 mg/dL (7-18); Calcium 8.5 mg/dL (8.5-10.1); Carbon Dioxide 24 mmol/L (21-32); Chloride 103 mmol/L (98-107); Glucose 89 mg/dL (74-106); Potassium 3.9 mmol/L (3.5-5.1); Sodium 134 mmol/L (136-145)
[2020-05-29 02:06] LABS: BUN/Creatinine Ratio 25.2; GFR African American 59 mL/min; GFR Non-African American 49 mL/min
[2020-05-29 02:10] LABS: INR 1.06 (0.9-1.15); Partial Thromboplastin Time 35.9 sec (23.0-31.2)
[2020-05-29 02:30] LABS: Alanine Aminotransferase 25 U/L (13-56); Alkaline Phosphatase 98 U/L (45-117); Aspartate Aminotransferase 24 U/L (15-37); Bilirubin, Total 0.2 mg/dL (0.2-1.0); Total Protein 6.4 g/dL (6.4-8.2)
[2020-05-29] MEDS ORDERED: FUROSEMIDE 20 MG/2 ML VIAL IV ONE (04:45)
[2020-05-29] MEDS ORDERED: DOCUSATE SOD 100 MG CAP PO PRN (08:00)
[2020-05-29] MEDS ORDERED: NITROGLYCERIN 0.4 MG SL TAB SL PRN (08:00)
[2020-05-29] MEDS: CARVEDILOL 3.125 MG TAB PO SCH (10:00)
[2020-05-29] MEDS: FAMOTIDINE (10MG/ML) 2ML VL IV SCH (10:31)
[2020-05-29] MEDS: ASPirin-EC 81 mg tab PO SCH (10:32)
[2020-05-29] MEDS: HEPARIN SODIUM (PORCINE) 5000 UNITS/ML 1ML VIAL SC SCH (10:32)
[2020-05-29] MEDS: MULTIPLE VITAMIN TAB PO SCH (10:32)
[2020-05-29] MEDS: ZINC SULFATE 220mg CAP or TAB PO SCH (10:32)
[2020-05-29] MEDS: ASCORBIC ACID 500 MG TAB PO SCH (10:32)
[2020-05-29 12:39] LABS: Basophils # (auto) 0.1 10 ^3/uL (0-0.2); Basophils % (auto) 0.7 % (0.0-2.0); Eosinophils # (auto) 0 10 ^3/uL (0-0.8); Eosinophils % (auto) 0.5 % (0.0-7.0); Hematocrit 50.8 % (36.0-46.0); Hemoglobin 17.2 g/dL (12.2-16.2); Lymphocytes % (auto) 29.6 % (10.0-50.0); Mean Corpuscular Hemoglobin 30.4 pg (28.0-32.0); Mean Corpuscular Hgb Conc. 33.8 g/dL (32.0-36.0); Mean Corpuscular Volume 89.8 fL (80.0-100.0); Monocytes % (auto) 14.9 % (0.0-12.0); Neutrophils # (auto) 3.7 10 ^3/uL (1.6-8.6); Neutrophils % (auto) 54.3 % (37.0-80.0); Nucleated Red Blood Cells % 0.2 %; Platelet Count (auto) 255 10^3/uL (140-450); Red Blood Cells 5.66 10^6/uL (4.0-5.20); Red Cell Distribution Width 14.5 % (11.8-14.3); White Blood Cell 6.9 10^3/uL (4.4-10.8)
[2020-05-29] MEDS ORDERED: LOPERAMIDE HCL 2 MG CAP PO ONE (12:45)
[2020-05-29 12:53] LABS: INR 1.04 (0.9-1.15); Partial Thromboplastin Time 37.2 sec (23.0-31.2)
[2020-05-29 13:02] LABS: Albumin 3.4 g/dL (3.4-5.0); Calcium 9.2 mg/dL (8.5-10.1); Potassium 3.8 mmol/L (3.5-5.1)
[2020-05-29 13:07] LABS: BUN/Creatinine Ratio 23.4; Bilirubin, Total 0.4 mg/dL (0.2-1.0)
[2020-05-29 13:13] LABS: Cholesterol 192 mg/dL (< 200); Triglycerides 125 mg/dL (< 150)
[2020-05-29 13:16] LABS: HDL Cholesterol 46 mg/dL (40-59); LDL Cholesterol 120 mg/dL (< 100)
[2020-05-29] MEDS: MORPHINE SULFATE 4 MG/ML SYR/VIAL IV PRN (13:32)
[2020-05-29] MEDS: ONDANSETRON HCL 4 MG/2 ML VIAL IV PRN (13:32)
[2020-05-29] MEDS: SODIUM CHLOR 0.9% PF (SALINE LOCK) 10ML VIAL/SYR IV SCH (14:09)
[2020-05-29] MEDS ORDERED: LOPERAMIDE HCL 2 MG CAP PO PRN (22:00)
[2020-05-30] MEDS: ASCORBIC ACID 500 MG TAB PO SCH ×3 (01:26→22:48)
[2020-05-30] MEDS: HEPARIN SODIUM (PORCINE) 5000 UNITS/ML 1ML VIAL SC SCH ×3 (01:26→22:41)
[2020-05-30] MEDS: MORPHINE SULFATE 4 MG/ML SYR/VIAL IV PRN ×5 (01:26→21:05)
[2020-05-30] MEDS: ATORVASTATIN 20 MG TAB PO SCH ×2 (01:27→22:48)
[2020-05-30] MEDS: CARVEDILOL 3.125 MG TAB PO SCH ×3 (01:27→22:00)
[2020-05-30] MEDS: SODIUM CHLOR 0.9% PF (SALINE LOCK) 10ML VIAL/SYR IV SCH ×4 (01:27→22:28)
[2020-05-30 06:12] LABS: Basophils # (auto) 0 10 ^3/uL (0-0.2); Basophils % (auto) 0.9 % (0.0-2.0); Eosinophils # (auto) 0 10 ^3/uL (0-0.8); Eosinophils % (auto) 0.4 % (0.0-7.0); Hematocrit 48.8 % (36.0-46.0); Hemoglobin 16.7 g/dL (12.2-16.2); Lymphocytes # (auto) 1.9 10 ^3/uL (0.4-5.4); Lymphocytes % (auto) 34.3 % (10.0-50.0); Mean Corpuscular Hemoglobin 30.8 pg (28.0-32.0); Mean Corpuscular Hgb Conc. 34.2 g/dL (32.0-36.0); Monocytes # (auto) 0.9 10 ^3/uL (0-1.3); Monocytes % (auto) 15.6 % (0.0-12.0); Neutrophils # (auto) 2.8 10 ^3/uL (1.6-8.6); Neutrophils % (auto) 48.8 % (37.0-80.0); Nucleated Red Blood Cells % 0.2 %; Platelet Count (auto) 202 10^3/uL (140-450); Red Blood Cells 5.42 10^6/uL (4.0-5.20); Red Cell Distribution Width 14.2 % (11.8-14.3); White Blood Cell 5.7 10^3/uL (4.4-10.8)
[2020-05-30 06:47] LABS: Potassium 3.7 mmol/L (3.5-5.1)
[2020-05-30 06:55] LABS: Albumin 3.2 g/dL (3.4-5.0); BUN/Creatinine Ratio 27.6; Bilirubin, Total 0.4 mg/dL (0.2-1.0); Calcium 8.3 mg/dL (8.5-10.1); Total Protein 6.3 g/dL (6.4-8.2)
[2020-05-30] MEDS: ONDANSETRON HCL 4 MG/2 ML VIAL IV PRN (08:17)
[2020-05-30 09:19] VITALS: BP 134/81
[2020-05-30] MEDS: FAMOTIDINE (10MG/ML) 2ML VL IV SCH (10:00)
[2020-05-30] MEDS: ASPirin-EC 81 mg tab PO SCH (10:15)
[2020-05-30] MEDS: ZINC SULFATE 220mg CAP or TAB PO SCH (10:15)
[2020-05-30] MEDS: MULTIPLE VITAMIN TAB PO SCH (10:15)
[2020-05-30 16:00] VITALS: BP 103/68
[2020-05-30 16:30] VITALS: BP 103/68
[2020-05-30] MEDS ORDERED: ZOLP10TA6 PO (19:06)
[2020-05-30] MEDS ORDERED: ALPR2TAB6 PO (19:06)
[2020-05-30] MEDS ORDERED: IPRA0.00 IN (19:06)
[2020-05-30] MEDS ORDERED: OXYC325T14 PO (19:06)
[2020-05-30] MEDS ORDERED: FLUO1TAB14 PO (19:09)
[2020-05-30] MEDS ORDERED: FAMO40TA7 PO (19:09)
[2020-05-30] MEDS ORDERED: POTA10TA32 PO (19:10)
[2020-05-30] MEDS ORDERED: DOCU100T23 PO (19:10)
[2020-05-30] MEDS ORDERED: FURO40TA4 PO (19:10)
[2020-05-30] MEDS ORDERED: PREG50CA PO (19:11)
[2020-05-30] MEDS ORDERED: HYOS0.1293 PO (19:12)
[2020-05-30] MEDS ORDERED: NITR0.4S29 SL (19:12)
[2020-05-31] VITALS: BP 82/58
[2020-05-31] MEDS: MORPHINE SULF INJ 2 MG/ML SYRINGE 1ML IV PRN ×2 (01:31→02:16)
[2020-05-31] MEDS ORDERED: KETOROLAC TROMETH 30 MG/ML 1ML VIAL IV ONE (05:00)
[2020-05-31] MEDS ORDERED: ENOXAPARIN SOD 30 MG/0.3 ML SYRINGE IV ONE (05:00)
[2020-05-31] MEDS: SODIUM CHLOR 0.9% PF (SALINE LOCK) 10ML VIAL/SYR IV SCH ×3 (06:16→22:16)
[2020-05-31 08:00] VITALS: BP 105/66
[2020-05-31] MEDS: CARVEDILOL 3.125 MG TAB PO SCH ×2 (10:00→22:00)
[2020-05-31] MEDS: FAMOTIDINE (10MG/ML) 2ML VL IV SCH (10:39)
[2020-05-31] MEDS: ZINC SULFATE 220mg CAP or TAB PO SCH (10:39)
[2020-05-31] MEDS: MORPHINE SULFATE 4 MG/ML SYR/VIAL IV PRN ×2 (10:40→22:33)
[2020-05-31] MEDS: MULTIPLE VITAMIN TAB PO SCH (10:40)
[2020-05-31] MEDS: ASPirin-EC 81 mg tab PO SCH (10:40)
[2020-05-31] MEDS: ASCORBIC ACID 500 MG TAB PO SCH ×2 (10:40→22:33)
[2020-05-31 16:00] VITALS: BP 117/69
[2020-05-31] MEDS: KETOROLAC TROMETH 30 MG/ML 1ML VIAL IV PRN (18:13)
[2020-05-31] MEDS: ATORVASTATIN 20 MG TAB PO SCH (22:32)
[2020-06-01] VITALS: BP 103/60
[2020-06-01] MEDS: MORPHINE SULFATE 4 MG/ML SYR/VIAL IV PRN ×4 (03:01→20:32)
[2020-06-01] MEDS: SODIUM CHLOR 0.9% PF (SALINE LOCK) 10ML VIAL/SYR IV SCH ×3 (05:40→21:57)
[2020-06-01 08:00] VITALS: BP 145/70
[2020-06-01] MEDS: ASPirin-EC 81 mg tab PO SCH (09:43)
[2020-06-01] MEDS: FAMOTIDINE (10MG/ML) 2ML VL IV SCH ×2 (09:43→21:57)
[2020-06-01] MEDS: ZINC SULFATE 220mg CAP or TAB PO SCH (09:43)
[2020-06-01] MEDS: MULTIPLE VITAMIN TAB PO SCH (09:43)
[2020-06-01] MEDS: ASCORBIC ACID 500 MG TAB PO SCH ×2 (09:44→21:58)
[2020-06-01] MEDS: CHOLECALCIFEROL (VITD3) 2,000 UNIT CAP PO SCH (09:44)
[2020-06-01] MEDS: ENOXAPARIN SOD 40 MG/0.4 ML SYRINGE SC SCH (09:44)
[2020-06-01] MEDS: CARVEDILOL 3.125 MG TAB PO SCH ×2 (09:45→21:57)
[2020-06-01] MEDS ORDERED: IVERMECTIN 3 MG TAB PO SCH (10:00)
[2020-06-01 15:48] LABS: Basophils # (auto) 0 10 ^3/uL (0-0.2); Eosinophils # (auto) 0 10 ^3/uL (0-0.8); Eosinophils % (auto) 0.9 % (0.0-7.0); Hematocrit 45.2 % (36.0-46.0); Hemoglobin 15.6 g/dL (12.2-16.2); Lymphocytes # (auto) 1.1 10 ^3/uL (0.4-5.4); Lymphocytes % (auto) 25.4 % (10.0-50.0); Mean Corpuscular Hemoglobin 30.7 pg (28.0-32.0); Mean Corpuscular Hgb Conc. 34.5 g/dL (32.0-36.0); Mean Corpuscular Volume 89.1 fL (80.0-100.0); Monocytes # (auto) 0.8 10 ^3/uL (0-1.3); Monocytes % (auto) 17.2 % (0.0-12.0); Neutrophils # (auto) 2.5 10 ^3/uL (1.6-8.6); Neutrophils % (auto) 55.5 % (37.0-80.0); Platelet Count (auto) 165 10^3/uL (140-450); Red Blood Cells 5.07 10^6/uL (4.0-5.20); Red Cell Distribution Width 14.5 % (11.8-14.3); White Blood Cell 4.5 10^3/uL (4.4-10.8)
[2020-06-01 15:54] LABS: Albumin 2.8 g/dL (3.4-5.0); Calcium 8.4 mg/dL (8.5-10.1); Potassium 4.8 mmol/L (3.5-5.1)
[2020-06-01 15:59] LABS: BUN/Creatinine Ratio 24.5; Bilirubin, Total 0.4 mg/dL (0.2-1.0); Total Protein 5.9 g/dL (6.4-8.2)
[2020-06-01 16:00] VITALS: BP 99/53
[2020-06-01] MEDS: IVERMECTIN 3 MG TAB PO SCH (17:30)
[2020-06-01] MEDS: MORPHINE SULF INJ 2 MG/ML SYRINGE 1ML IV PRN (17:31)
[2020-06-01] MEDS: ATORVASTATIN 20 MG TAB PO SCH (21:57)
[2020-06-02] VITALS: BP 79/44
[2020-06-02] MEDS: MORPHINE SULFATE 4 MG/ML SYR/VIAL IV PRN (02:18)
[2020-06-02 02:57] LABS: Urine Amorphous Crystal FEW /hpf (None Seen); Urine Bacteria FEW /hpf (None Seen); Urine Blood Negative /uL (Negative); Urine Specific Gravity 1.022 (1.001-1.035); Urine WBC 2 /hpf (0 - 5)
[2020-06-02] MEDS: SODIUM CHLOR 0.9% PF (SALINE LOCK) 10ML VIAL/SYR IV SCH ×3 (06:00→22:20)
[2020-06-02 08:00] VITALS: BP 117/65
[2020-06-02] MEDS: KETOROLAC TROMETH 30 MG/ML 1ML VIAL IV PRN (08:50)
[2020-06-02] MEDS: CARVEDILOL 3.125 MG TAB PO SCH ×2 (09:00→22:20)
[2020-06-02] MEDS: ENOXAPARIN SOD 40 MG/0.4 ML SYRINGE SC SCH (09:00)
[2020-06-02] MEDS: ASPirin-EC 81 mg tab PO SCH (09:00)
[2020-06-02] MEDS ORDERED: ANGIOMAX 250 MG VIAL IV ONE (09:57)
[2020-06-02] MEDS ORDERED: fentaNYL CITRATE 100 MCG/2 ML VL ONE (09:57)
[2020-06-02] MEDS ORDERED: MIDAZOLAM HCL 1MG/1ML-2 ML VIAL ONE (09:58)
[2020-06-02] MEDS ORDERED: SODIUM CHL 0.9% 0 ML ONE (09:58)
[2020-06-02] MEDS ORDERED: LIDOCAINE 2%HCL (LOCAL ANESTH.) INJ 20ML MDV ONE (10:01)
[2020-06-02] MEDS ORDERED: IOHEXOL 350 MG/ML 100ML IJ ONE (10:01)
[2020-06-02 15:57] VITALS: BP 108/69
[2020-06-02] MEDS: CHOLECALCIFEROL (VITD3) 2,000 UNIT CAP PO SCH (17:00)
[2020-06-02] MEDS: MULTIPLE VITAMIN TAB PO SCH (17:00)
[2020-06-02] MEDS: ZINC SULFATE 220mg CAP or TAB PO SCH (17:00)
[2020-06-02] MEDS: ASCORBIC ACID 500 MG TAB PO SCH ×2 (17:00→22:20)
[2020-06-02] MEDS: IVERMECTIN 3 MG TAB PO SCH (18:00)
[2020-06-02] MEDS: Glucerna Carbsteady SHAKE Vanilla 8oz PO SCH (22:00)
[2020-06-02] MEDS: ATORVASTATIN 20 MG TAB PO SCH (22:20)
[2020-06-03] VITALS: BP 108/55
[2020-06-03 08:00] VITALS: BP 116/77
[2020-06-03] MEDS: KETOROLAC TROMETH 30 MG/ML 1ML VIAL IV PRN (08:34)
[2020-06-03 09:00] VITALS: BP 116/77
[2020-06-03] MEDS: SODIUM CHLOR 0.9% PF (SALINE LOCK) 10ML VIAL/SYR IV SCH ×3 (11:46→22:00)
[2020-06-03] MEDS: ZINC SULFATE 220mg CAP or TAB PO SCH (11:47)
[2020-06-03] MEDS: FAMOTIDINE (10MG/ML) 2ML VL IV SCH (11:47)
[2020-06-03] MEDS: MULTIPLE VITAMIN TAB PO SCH (11:48)
[2020-06-03] MEDS: ASPirin-EC 81 mg tab PO SCH (11:48)
[2020-06-03] MEDS: CARVEDILOL 3.125 MG TAB PO SCH ×2 (11:48→18:31)
[2020-06-03] MEDS: Glucerna Carbsteady SHAKE Vanilla 8oz PO SCH ×2 (11:48→22:00)
[2020-06-03] MEDS: ASCORBIC ACID 500 MG TAB PO SCH ×2 (11:49→22:00)
[2020-06-03] MEDS: ENOXAPARIN SOD 40 MG/0.4 ML SYRINGE SC SCH (11:49)
[2020-06-03] MEDS: CHOLECALCIFEROL (VITD3) 2,000 UNIT CAP PO SCH (11:49)
[2020-06-03] MEDS: IVERMECTIN 3 MG TAB PO SCH (12:09)
[2020-06-03] MEDS: MORPHINE SULF INJ 2 MG/ML SYRINGE 1ML IV PRN ×2 (12:18→18:33)
[2020-06-03 16:00] VITALS: BP 105/69
[2020-06-03] MEDS: MORPHINE SULFATE 4 MG/ML SYR/VIAL IV PRN (22:00)
[2020-06-03] MEDS: ATORVASTATIN 20 MG TAB PO SCH (22:00)
[2020-06-04] VITALS: BP 115/70
[2020-06-04] MEDS: MORPHINE SULFATE 4 MG/ML SYR/VIAL IV PRN ×2 (03:40→20:00)
[2020-06-04] MEDS: SODIUM CHLOR 0.9% PF (SALINE LOCK) 10ML VIAL/SYR IV SCH ×3 (06:00→22:24)
[2020-06-04 08:00] VITALS: BP 128/79
[2020-06-04] MEDS: FAMOTIDINE (10MG/ML) 2ML VL IV SCH (09:05)
[2020-06-04] MEDS: MORPHINE SULF INJ 2 MG/ML SYRINGE 1ML IV PRN ×2 (09:05→16:03)
[2020-06-04] MEDS: ASPirin-EC 81 mg tab PO SCH (09:05)
[2020-06-04] MEDS: ZINC SULFATE 220mg CAP or TAB PO SCH (09:05)
[2020-06-04] MEDS: MULTIPLE VITAMIN TAB PO SCH (09:06)
[2020-06-04] MEDS: Glucerna Carbsteady SHAKE Vanilla 8oz PO SCH ×2 (09:06→22:24)
[2020-06-04] MEDS: CHOLECALCIFEROL (VITD3) 2,000 UNIT CAP PO SCH (09:06)
[2020-06-04] MEDS: ASCORBIC ACID 500 MG TAB PO SCH ×2 (09:06→22:24)
[2020-06-04] MEDS: ENOXAPARIN SOD 40 MG/0.4 ML SYRINGE SC SCH (09:07)
[2020-06-04] MEDS: CARVEDILOL 3.125 MG TAB PO SCH ×2 (09:08→22:25)
[2020-06-04] MEDS: IVERMECTIN 3 MG TAB PO SCH (09:12)
[2020-06-04 16:00] VITALS: BP 120/77
[2020-06-04] MEDS: ATORVASTATIN 20 MG TAB PO SCH (22:24)
[2020-06-05] VITALS: BP 109/71
[2020-06-05] MEDS: SODIUM CHLOR 0.9% PF (SALINE LOCK) 10ML VIAL/SYR IV SCH ×3 (06:00→22:15)
[2020-06-05 07:51] VITALS: BP 116/75
[2020-06-05] MEDS: FAMOTIDINE (10MG/ML) 2ML VL IV SCH (09:20)
[2020-06-05] MEDS: CARVEDILOL 3.125 MG TAB PO SCH ×2 (09:20→22:15)
[2020-06-05] MEDS: ZINC SULFATE 220mg CAP or TAB PO SCH (09:20)
[2020-06-05] MEDS: MULTIPLE VITAMIN TAB PO SCH (09:21)
[2020-06-05] MEDS: Glucerna Carbsteady SHAKE Vanilla 8oz PO SCH ×2 (09:21→22:15)
[2020-06-05] MEDS: IVERMECTIN 3 MG TAB PO SCH (09:21)
[2020-06-05] MEDS: ASPirin-EC 81 mg tab PO SCH (09:21)
[2020-06-05] MEDS: ENOXAPARIN SOD 40 MG/0.4 ML SYRINGE SC SCH (09:22)
[2020-06-05] MEDS: CHOLECALCIFEROL (VITD3) 2,000 UNIT CAP PO SCH (09:22)
[2020-06-05] MEDS: ASCORBIC ACID 500 MG TAB PO SCH ×2 (09:22→22:15)
[2020-06-05] MEDS: MORPHINE SULF INJ 2 MG/ML SYRINGE 1ML IV PRN ×2 (12:53→23:45)
[2020-06-05 15:49] LABS: Basophils # (auto) 0 10 ^3/uL (0-0.2); Basophils % (auto) 0.7 % (0.0-2.0); Eosinophils # (auto) 0 10 ^3/uL (0-0.8); Eosinophils % (auto) 0.6 % (0.0-7.0); Hematocrit 44.6 % (36.0-46.0); Hemoglobin 15.4 g/dL (12.2-16.2); Lymphocytes # (auto) 1.5 10 ^3/uL (0.4-5.4); Lymphocytes % (auto) 35.1 % (10.0-50.0); Mean Corpuscular Hemoglobin 30.5 pg (28.0-32.0); Mean Corpuscular Hgb Conc. 34.5 g/dL (32.0-36.0); Mean Corpuscular Volume 88.4 fL (80.0-100.0); Monocytes # (auto) 0.7 10 ^3/uL (0-1.3); Monocytes % (auto) 16.8 % (0.0-12.0); Neutrophils % (auto) 46.8 % (37.0-80.0); Nucleated Red Blood Cells % 0.5 %; Platelet Count (auto) 161 10^3/uL (140-450); Red Blood Cells 5.04 10^6/uL (4.0-5.20); Red Cell Distribution Width 14.8 % (11.8-14.3); White Blood Cell 4.3 10^3/uL (4.4-10.8)
[2020-06-05 16:00] VITALS: BP 98/77
[2020-06-05 16:26] LABS: BUN/Creatinine Ratio 23.3; Bilirubin, Total 0.5 mg/dL (0.2-1.0); Calcium 8.4 mg/dL (8.5-10.1); Potassium 4.5 mmol/L (3.5-5.1); Total Protein 6.4 g/dL (6.4-8.2)
[2020-06-05] MEDS: MORPHINE SULFATE 4 MG/ML SYR/VIAL IV PRN (20:03)
[2020-06-05] MEDS: ATORVASTATIN 20 MG TAB PO SCH (22:15)
[2020-06-06] VITALS: BP 105/53
[2020-06-06] MEDS: SODIUM CHLOR 0.9% PF (SALINE LOCK) 10ML VIAL/SYR IV SCH ×3 (05:54→22:00)
[2020-06-06] MEDS: MORPHINE SULFATE 4 MG/ML SYR/VIAL IV PRN ×3 (05:55→20:15)
[2020-06-06 08:00] VITALS: BP 111/66
[2020-06-06] MEDS: ZINC SULFATE 220mg CAP or TAB PO SCH (09:35)
[2020-06-06] MEDS: ASCORBIC ACID 500 MG TAB PO SCH ×2 (09:35→22:00)
[2020-06-06] MEDS: ASPirin-EC 81 mg tab PO SCH (09:35)
[2020-06-06] MEDS: CARVEDILOL 3.125 MG TAB PO SCH ×2 (09:36→22:00)
[2020-06-06] MEDS: CHOLECALCIFEROL (VITD3) 2,000 UNIT CAP PO SCH (09:37)
[2020-06-06] MEDS: MULTIPLE VITAMIN TAB PO SCH (09:37)
[2020-06-06] MEDS: FAMOTIDINE (10MG/ML) 2ML VL IV SCH (09:37)
[2020-06-06] MEDS: ENOXAPARIN SOD 40 MG/0.4 ML SYRINGE SC SCH (09:37)
[2020-06-06] MEDS: Glucerna Carbsteady SHAKE Vanilla 8oz PO SCH ×2 (10:00→22:00)
[2020-06-06 16:00] VITALS: BP 118/70
[2020-06-06] MEDS: ATORVASTATIN 20 MG TAB PO SCH (22:00)
[2020-06-07] VITALS: BP 105/63
[2020-06-07 08:00] VITALS: BP 129/75
[2020-06-07] MEDS: MORPHINE SULFATE 4 MG/ML SYR/VIAL IV PRN ×2 (08:31→14:06)
[2020-06-07] MEDS: Glucerna Carbsteady SHAKE Vanilla 8oz PO SCH (10:00)
[2020-06-07] MEDS: FAMOTIDINE (10MG/ML) 2ML VL IV SCH (10:44)
[2020-06-07] MEDS: ZINC SULFATE 220mg CAP or TAB PO SCH (10:44)
[2020-06-07] MEDS: ASCORBIC ACID 500 MG TAB PO SCH (10:44)
[2020-06-07] MEDS: MULTIPLE VITAMIN TAB PO SCH (10:44)
[2020-06-07] MEDS: CARVEDILOL 3.125 MG TAB PO SCH (10:45)
[2020-06-07] MEDS: ENOXAPARIN SOD 40 MG/0.4 ML SYRINGE SC SCH (10:45)
[2020-06-07] MEDS: ASPirin-EC 81 mg tab PO SCH (10:45)
[2020-06-07] MEDS: CHOLECALCIFEROL (VITD3) 2,000 UNIT CAP PO SCH (10:46)
== END 2020-06-07 14:30 | DRG 177 ==
LOC: EDBD → EDUNIT# → ER → TELE 00:01 → TELE-EAST 05-30 09:42
PROVIDERS: ADMIT Nurse Practitioner Family; ATTEND Internal Medicine Cardiovascular Disease
PROC: 4A023N7 Measurement of Cardiac Sampling and Pressure, Left Heart, Percutaneous Approach (ICD-10-PCS; principal; 2020-06-02)
PROC: B2111ZZ Fluoroscopy of Multiple Coronary Arteries using Low Osmolar Contrast (ICD-10-PCS; 2020-06-02)
PROC: B2131ZZ Fluoroscopy of Multiple Coronary Artery Bypass Grafts using Low Osmolar Contrast (ICD-10-PCS; 2020-06-02)
PROC: B2181ZZ Fluoroscopy of Left Internal Mammary Bypass Graft using Low Osmolar Contrast (ICD-10-PCS; 2020-06-02)
PROC: 05HF33Z Insertion of Infusion Device into Left Cephalic Vein, Percutaneous Approach (ICD-10-PCS; 2020-06-02)
PROC: B54NZZA Ultrasonography of Left Upper Extremity Veins, Guidance (ICD-10-PCS; 2020-06-02)
DX: U07.1 COVID-19 (principal); I50.23 Acute on chronic systolic (congestive) heart failure; J12.82 Pneumonia due to coronavirus disease 2019; I24.9 Acute ischemic heart disease, unspecified; J44.0 Chronic obstructive pulmonary disease with (acute) lower respiratory infection; I13.0 Hypertensive heart and chronic kidney disease with heart failure and stage 1 through stage 4 chronic kidney disease, or unspecified chronic kidney disease; Z66 Do not resuscitate; D75.1 Secondary polycythemia; I25.5 Ischemic cardiomyopathy; E78.5 Hyperlipidemia, unspecified; N18.9 Chronic kidney disease, unspecified; Z51.5 Encounter for palliative care; I25.10 Atherosclerotic heart disease of native coronary artery without angina pectoris; F32.9 Major depressive disorder, single episode, unspecified; F41.9 Anxiety disorder, unspecified; K21.9 Gastro-esophageal reflux disease without esophagitis; E78.00 Pure hypercholesterolemia, unspecified; Z99.81 Dependence on supplemental oxygen; I25.2 Old myocardial infarction; Z82.49 Family history of ischemic heart disease and other diseases of the circulatory system; Z87.891 Personal history of nicotine dependence; Z95.1 Presence of aortocoronary bypass graft; Z90.710 Acquired absence of both cervix and uterus; Z98.61 Coronary angioplasty status; Z95.810 Presence of automatic (implantable) cardiac defibrillator; Z90.49 Acquired absence of other specified parts of digestive tract; Z88.1 Allergy status to other antibiotic agents; Z88.5 Allergy status to narcotic agent
CPT/HCPCS: 36415; 36600; 71045; 80053; 80061; 81001; 82805; 83880; 84484; 85025; 85610; 85730; 86850; 86900; 86901; 87081; 93005; 93459; 99152; G0378; J1885; J2250; J2405; J3490

== ENCOUNTER 2020-07-16 18:41 | Inpatient (IN) | payer MEDICARE, MEDICAID ==
[~2020-07-16] VITALS: Ht 160 cm; Wt 66.7 kg
[~2020-07-16 18:41] MED LIST changes: -ALBU0.08 NEB; +ALPR2TAB6 PO; -ASPI-394 PO; -ATOR20TA50 PO; +DOCU100T23 PO; +FAMO40TA7 PO; +FLUO1TAB14 PO; +FURO40TA4 PO; -HYDR2TAB58 PO; +HYOS0.1293 PO; +IPRA0.00 IN; -IPRA0.03 INH; -LORA0.5T20 PO; +NITR0.4S29 SL; -ONDA-144 PO; +OXYC325T14 PO; +POTA10TA32 PO; +PREG50CA PO; -TEMA30CA PO; +ZOLP10TA6 PO
[2020-07-16] MEDS ORDERED: cefTRIAXone 1GM/50ML D5W 50 ML IV ONE (20:00)
[2020-07-16] MEDS ORDERED: methylPREDNISolone SOD SUCC 125 MG/2 ML VL IV ONE (20:00)
[2020-07-16 20:32] LABS: Hematocrit 36.2 % (36.0-46.0); Hemoglobin 12.2 g/dL (12.2-16.2); Mean Corpuscular Hemoglobin 30.3 pg (28.0-32.0); Mean Corpuscular Hgb Conc. 33.8 g/dL (32.0-36.0); Mean Corpuscular Volume 89.7 fL (80.0-100.0); Platelet Count (auto) 176 10^3/uL (140-450); Red Blood Cells 4.03 10^6/uL (4.0-5.20); Red Cell Distribution Width 15.7 % (11.8-14.3); White Blood Cell 9.1 10^3/uL (4.4-10.8)
[2020-07-16 20:41] LABS: Band Neutrophils % (manual) 0; Basophils % (manual) 0 (0.0-2.0); Blast Cells 0; Metamyelocytes % 0; Myelocytes % 0; Promyelocytes % 0; Reactive Lymphocytes 0
[2020-07-16 20:48] LABS: Albumin 3.1 g/dL (3.4-5.0); Calcium 8.4 mg/dL (8.5-10.1); Potassium 3.8 mmol/L (3.5-5.1)
[2020-07-16 20:49] LABS: INR 1.09 (0.9-1.15); Partial Thromboplastin Time 30.2 sec (23.0-31.2)
[2020-07-16 20:54] LABS: BUN/Creatinine Ratio 17.2; Bilirubin, Total 0.8 mg/dL (0.2-1.0)
[2020-07-16 21:03] LABS: Eosinophils % (manual) 21 (0-7); Lymphocytes % (manual) 30 (10.0-50.0); Monocytes % (manual) 10 (0-12)
[2020-07-16] MEDS ORDERED: FUROSEMIDE 40 MG/4 ML VIAL IV ONE (22:00)
[2020-07-16] MEDS ORDERED: ALBUTEROL SULF 2.5 MG/0.5ML(0.5%) NEB SOLN ONE (22:24)
[2020-07-16] MEDS ORDERED: IPRATROPIUM BROM 0.5 MG/2.5ML INH SOL ONE (22:24)
[2020-07-16] MEDS ORDERED: ALBUTEROL SULF 2.5 MG/0.5ML(0.5%) NEB SOLN NEB ONE (22:45)
[2020-07-16] MEDS ORDERED: IPRATROPIUM BROM 0.5 MG/2.5ML INH SOL NEB ONE (22:45)
[2020-07-16] MEDS ORDERED: MORPHINE SULFATE 4 MG/ML SYR/VIAL IV ONE (23:15)
[2020-07-17] MEDS ORDERED: NITROGLYCERIN 0.4 MG SL TAB SL PRN (00:15)
[2020-07-17] MEDS ORDERED: MORPHINE SULF INJ 2 MG/ML SYRINGE 1ML IV PRN (00:15)
[2020-07-17 00:57] VITALS: BP 124/62
[2020-07-17] MEDS: MORPHINE SULFATE 4 MG/ML SYR/VIAL IV PRN ×4 (03:17→22:55)
[2020-07-17] MEDS: ALBUTEROL SULF 2.5 MG/0.5ML(0.5%) NEB SOLN NEB SCH ×5 (06:00→22:00)
[2020-07-17] MEDS ORDERED: FUROSEMIDE 20 MG/2 ML VIAL IV SCH (06:00)
[2020-07-17] MEDS: IPRATROPIUM BROM 0.5 MG/2.5ML INH SOL NEB SCH ×5 (06:00→22:00)
[2020-07-17] MEDS: SODIUM CHLOR 0.9% PF (SALINE LOCK) 10ML VIAL/SYR IV SCH ×3 (06:38→22:37)
[2020-07-17 07:48] LABS: Urine Bacteria NONE SEEN /hpf (None Seen); Urine Blood Negative /uL (Negative); Urine Specific Gravity 1.014 (1.001-1.035); Urine WBC 1 /hpf (0 - 5)
[2020-07-17 08:07] LABS: Basophils # (auto) 0 10 ^3/uL (0-0.2); Basophils % (auto) 0.4 % (0.0-2.0); Eosinophils # (auto) 0 10 ^3/uL (0-0.8); Eosinophils % (auto) 0.4 % (0.0-7.0); Hematocrit 42.7 % (36.0-46.0); Hemoglobin 14.4 g/dL (12.2-16.2); Lymphocytes # (auto) 0.7 10 ^3/uL (0.4-5.4); Lymphocytes % (auto) 16.1 % (10.0-50.0); Mean Corpuscular Hemoglobin 29.8 pg (28.0-32.0); Mean Corpuscular Hgb Conc. 33.8 g/dL (32.0-36.0); Mean Corpuscular Volume 88.3 fL (80.0-100.0); Monocytes # (auto) 0.1 10 ^3/uL (0-1.3); Monocytes % (auto) 2.4 % (0.0-12.0); Neutrophils # (auto) 3.4 10 ^3/uL (1.6-8.6); Neutrophils % (auto) 80.7 % (37.0-80.0); Nucleated Red Blood Cells % 0.1 %; Platelet Count (auto) 203 10^3/uL (140-450); Red Blood Cells 4.84 10^6/uL (4.0-5.20); Red Cell Distribution Width 15.3 % (11.8-14.3); White Blood Cell 4.2 10^3/uL (4.4-10.8)
[2020-07-17 08:19] LABS: Albumin 3.6 g/dL (3.4-5.0); Calcium 8.8 mg/dL (8.5-10.1); Potassium 3.7 mmol/L (3.5-5.1)
[2020-07-17 08:25] LABS: BUN/Creatinine Ratio 14.4; Bilirubin, Total 1.1 mg/dL (0.2-1.0)
[2020-07-17] MEDS: cefTRIAXone 1GM/50ML D5W 50 ML IV SCH (08:37)
[2020-07-17] MEDS: ONDANSETRON HCL 4 MG/2 ML VIAL IV PRN ×2 (08:38→17:42)
[2020-07-17] MEDS: ASCORBIC ACID 500 MG TAB PO SCH ×2 (09:50→22:38)
[2020-07-17] MEDS: ASPirin 81 mg TAB PO SCH (09:50)
[2020-07-17] MEDS: FLUoxetine HCL 20 MG CAP PO SCH (09:50)
[2020-07-17] MEDS: ZINC SULFATE 220mg CAP or TAB PO SCH (09:50)
[2020-07-17] MEDS: MULTIPLE VITAMIN TAB PO SCH (09:50)
[2020-07-17] MEDS: DexAMETHasone SOD PHOS 10MG/1ML VIAL INJ IV SCH (09:51)
[2020-07-17] MEDS: CARVEDILOL 3.125 MG TAB PO SCH ×2 (09:51→22:37)
[2020-07-17] MEDS: FAMOTIDINE (10MG/ML) 2ML VL IV SCH (09:51)
[2020-07-17] MEDS: ENOXAPARIN SOD 40 MG/0.4 ML SYRINGE SC SCH (09:52)
[2020-07-17] MEDS ORDERED: RANOLAZINE ER 500 MG TAB PO ONE (11:30)
[2020-07-17 16:00] VITALS: BP 134/83
[2020-07-17] MEDS: FUROSEMIDE 40 MG/4 ML VIAL IV SCH (17:41)
[2020-07-17 20:00] VITALS: BP 125/77
[2020-07-17 22:00] VITALS: BP 125/77
[2020-07-17] MEDS: SACUBITRIL-VALSARTAN 24mg/26mg TAB PO SCH (22:37)
[2020-07-17] MEDS: RANOLAZINE ER 500 MG TAB PO SCH (22:38)
[2020-07-17] MEDS: ATORVASTATIN 20 MG TAB PO SCH (22:38)
[2020-07-18 05:00] VITALS: BP 91/55
[2020-07-18] MEDS: FUROSEMIDE 40 MG/4 ML VIAL IV SCH ×2 (06:00→18:00)
[2020-07-18] MEDS: SODIUM CHLOR 0.9% PF (SALINE LOCK) 10ML VIAL/SYR IV SCH ×3 (06:20→21:30)
[2020-07-18] MEDS: IPRATROPIUM BROM 0.5 MG/2.5ML INH SOL NEB SCH ×5 (06:50→22:17)
[2020-07-18] MEDS: ALBUTEROL SULF 2.5 MG/0.5ML(0.5%) NEB SOLN NEB SCH ×5 (06:50→22:17)
[2020-07-18 06:58] LABS: Basophils # (auto) 0 10 ^3/uL (0-0.2); Basophils % (auto) 0.1 % (0.0-2.0); Eosinophils # (auto) 0 10 ^3/uL (0-0.8); Hemoglobin 14.2 g/dL (12.2-16.2); Lymphocytes % (auto) 8.9 % (10.0-50.0); Mean Corpuscular Hemoglobin 29.9 pg (28.0-32.0); Mean Corpuscular Hgb Conc. 33.9 g/dL (32.0-36.0); Mean Corpuscular Volume 88.3 fL (80.0-100.0); Monocytes # (auto) 0.7 10 ^3/uL (0-1.3); Neutrophils # (auto) 9.7 10 ^3/uL (1.6-8.6); Nucleated Red Blood Cells % 0.1 %; Platelet Count (auto) 220 10^3/uL (140-450); Red Blood Cells 4.75 10^6/uL (4.0-5.20); Red Cell Distribution Width 15.4 % (11.8-14.3); White Blood Cell 11.4 10^3/uL (4.4-10.8)
[2020-07-18 07:28] LABS: Potassium 3.6 mmol/L (3.5-5.1)
[2020-07-18 07:43] LABS: Albumin 3.5 g/dL (3.4-5.0); Bilirubin, Total 1.1 mg/dL (0.2-1.0); Calcium 8.7 mg/dL (8.5-10.1); Total Protein 6.8 g/dL (6.4-8.2)
[2020-07-18] MEDS: MORPHINE SULFATE 4 MG/ML SYR/VIAL IV PRN ×3 (08:10→21:45)
[2020-07-18] MEDS: cefTRIAXone 1GM/50ML D5W 50 ML IV SCH (08:11)
[2020-07-18 09:00] VITALS: BP 102/62
[2020-07-18] MEDS: CARVEDILOL 3.125 MG TAB PO SCH ×2 (10:00→22:00)
[2020-07-18] MEDS: ZINC SULFATE 220mg CAP or TAB PO SCH (10:00)
[2020-07-18] MEDS: MULTIPLE VITAMIN TAB PO SCH (10:00)
[2020-07-18] MEDS: ASCORBIC ACID 500 MG TAB PO SCH ×2 (10:00→21:29)
[2020-07-18] MEDS: DexAMETHasone SOD PHOS 10MG/1ML VIAL INJ IV SCH (11:47)
[2020-07-18] MEDS: ASPirin 81 mg TAB PO SCH (11:47)
[2020-07-18] MEDS: FAMOTIDINE (10MG/ML) 2ML VL IV SCH (11:47)
[2020-07-18] MEDS: CLOPIDOGREL BISULFATE 75 MG TAB PO SCH (11:48)
[2020-07-18] MEDS: SACUBITRIL-VALSARTAN 24mg/26mg TAB PO SCH ×2 (11:48→21:29)
[2020-07-18] MEDS: RANOLAZINE ER 500 MG TAB PO SCH ×2 (11:49→21:29)
[2020-07-18] MEDS: ENOXAPARIN SOD 40 MG/0.4 ML SYRINGE SC SCH (11:49)
[2020-07-18] MEDS: FLUoxetine HCL 20 MG CAP PO SCH (11:49)
[2020-07-18 13:00] VITALS: BP 107/57
[2020-07-18] MEDS: ONDANSETRON HCL 4 MG/2 ML VIAL IV PRN ×2 (13:44→21:45)
[2020-07-18 17:00] VITALS: BP 96/50
[2020-07-18] MEDS: Ensure HIGH Protein Chocolate 8oz Bottle PO SCH (18:08)
[2020-07-18] MEDS: ATORVASTATIN 20 MG TAB PO SCH (21:29)
[2020-07-18 22:00] VITALS: BP 102/59
[2020-07-19] MEDS: MORPHINE SULFATE 4 MG/ML SYR/VIAL IV PRN ×4 (03:44→21:58)
[2020-07-19] MEDS: ONDANSETRON HCL 4 MG/2 ML VIAL IV PRN ×2 (03:44→21:58)
[2020-07-19 05:00] VITALS: BP 110/71
[2020-07-19] MEDS: ALBUTEROL SULF 2.5 MG/0.5ML(0.5%) NEB SOLN NEB SCH ×5 (05:53→22:10)
[2020-07-19] MEDS: IPRATROPIUM BROM 0.5 MG/2.5ML INH SOL NEB SCH ×5 (05:53→22:10)
[2020-07-19] MEDS: FUROSEMIDE 40 MG/4 ML VIAL IV SCH ×2 (06:12→17:01)
[2020-07-19] MEDS: SODIUM CHLOR 0.9% PF (SALINE LOCK) 10ML VIAL/SYR IV SCH ×3 (06:12→21:40)
[2020-07-19] MEDS: Ensure HIGH Protein Chocolate 8oz Bottle PO SCH ×3 (07:48→18:15)
[2020-07-19 09:00] VITALS: BP 102/69
[2020-07-19] MEDS: ASPirin 81 mg TAB PO SCH (09:11)
[2020-07-19] MEDS: DexAMETHasone SOD PHOS 10MG/1ML VIAL INJ IV SCH (09:11)
[2020-07-19] MEDS: cefTRIAXone 1GM/50ML D5W 50 ML IV SCH (09:11)
[2020-07-19] MEDS: FAMOTIDINE (10MG/ML) 2ML VL IV SCH ×2 (09:11→21:39)
[2020-07-19] MEDS: ASCORBIC ACID 500 MG TAB PO SCH ×2 (09:12→21:40)
[2020-07-19] MEDS: ENOXAPARIN SOD 40 MG/0.4 ML SYRINGE SC SCH (09:12)
[2020-07-19] MEDS: ZINC SULFATE 220mg CAP or TAB PO SCH (09:12)
[2020-07-19] MEDS: SACUBITRIL-VALSARTAN 24mg/26mg TAB PO SCH ×2 (09:12→21:40)
[2020-07-19] MEDS: MULTIPLE VITAMIN TAB PO SCH (09:12)
[2020-07-19] MEDS: CLOPIDOGREL BISULFATE 75 MG TAB PO SCH (09:12)
[2020-07-19] MEDS: FLUoxetine HCL 20 MG CAP PO SCH (09:12)
[2020-07-19] MEDS: CARVEDILOL 3.125 MG TAB PO SCH ×2 (09:13→21:40)
[2020-07-19] MEDS: RANOLAZINE ER 500 MG TAB PO SCH ×2 (09:13→21:40)
[2020-07-19 09:46] LABS: Albumin 3.3 g/dL (3.4-5.0); Calcium 8.3 mg/dL (8.5-10.1); Potassium 3.3 mmol/L (3.5-5.1)
[2020-07-19 09:49] LABS: BUN/Creatinine Ratio 28.6; Bilirubin, Total 0.7 mg/dL (0.2-1.0); Total Protein 6.6 g/dL (6.4-8.2)
[2020-07-19 12:47] VITALS: BP 100/65
[2020-07-19] MEDS ORDERED: guaiFENesin-DM 100/10mg/5ml SYR PO PRN (13:45)
[2020-07-19] MEDS ORDERED: POTASSIUM CHL 20 Meq TABLET PO ONE (13:45)
[2020-07-19] MEDS ORDERED: OXYCODONE W/ ACETAMINOPHEN 5/325MG TABLET PO PRN (14:15)
[2020-07-19] MEDS ORDERED: ALUM & MAG HYDROX-SIMETH LIQ(MAALOX) 30 ML PO PRN (14:15)
[2020-07-19] MEDS: DOCUSATE SOD 100 MG CAP PO PRN (14:18)
[2020-07-19 16:47] VITALS: BP 97/58
[2020-07-19] MEDS: ATORVASTATIN 20 MG TAB PO SCH (21:40)
[2020-07-19 22:23] VITALS: BP 125/69
[2020-07-20 02:02] VITALS: BP 100/67
[2020-07-20] MEDS: ALBUTEROL SULF 2.5 MG/0.5ML(0.5%) NEB SOLN NEB SCH ×6 (02:54→22:44)
[2020-07-20] MEDS: IPRATROPIUM BROM 0.5 MG/2.5ML INH SOL NEB SCH ×6 (02:54→22:44)
[2020-07-20] MEDS: MORPHINE SULFATE 4 MG/ML SYR/VIAL IV PRN ×4 (02:57→22:33)
[2020-07-20 04:57] VITALS: BP 116/75
[2020-07-20] MEDS: FUROSEMIDE 40 MG/4 ML VIAL IV SCH ×2 (06:04→18:00)
[2020-07-20] MEDS: SODIUM CHLOR 0.9% PF (SALINE LOCK) 10ML VIAL/SYR IV SCH ×3 (06:05→22:33)
[2020-07-20] MEDS: Ensure HIGH Protein Chocolate 8oz Bottle PO SCH ×3 (08:00→18:12)
[2020-07-20 09:00] VITALS: BP 116/72
[2020-07-20] MEDS: cefTRIAXone 1GM/50ML D5W 50 ML IV SCH (09:11)
[2020-07-20] MEDS: FAMOTIDINE (10MG/ML) 2ML VL IV SCH ×2 (09:12→22:33)
[2020-07-20] MEDS: DexAMETHasone SOD PHOS 10MG/1ML VIAL INJ IV SCH (09:12)
[2020-07-20] MEDS: ZINC SULFATE 220mg CAP or TAB PO SCH (09:13)
[2020-07-20] MEDS: MULTIPLE VITAMIN TAB PO SCH (09:13)
[2020-07-20] MEDS: FLUoxetine HCL 20 MG CAP PO SCH (09:13)
[2020-07-20] MEDS: CLOPIDOGREL BISULFATE 75 MG TAB PO SCH (09:13)
[2020-07-20] MEDS: ASCORBIC ACID 500 MG TAB PO SCH ×2 (09:14→22:33)
[2020-07-20] MEDS: RANOLAZINE ER 500 MG TAB PO SCH ×2 (09:14→22:33)
[2020-07-20] MEDS: ENOXAPARIN SOD 40 MG/0.4 ML SYRINGE SC SCH (09:14)
[2020-07-20] MEDS: ONDANSETRON HCL 4 MG/2 ML VIAL IV PRN ×2 (09:14→17:17)
[2020-07-20] MEDS: SACUBITRIL-VALSARTAN 24mg/26mg TAB PO SCH ×2 (10:00→22:33)
[2020-07-20] MEDS: ASPirin 81 mg TAB PO SCH (10:00)
[2020-07-20] MEDS: CARVEDILOL 3.125 MG TAB PO SCH ×2 (10:00→22:33)
[2020-07-20 13:00] VITALS: BP 103/58
[2020-07-20 17:00] VITALS: BP 94/57
[2020-07-20 22:00] VITALS: BP 114/69
[2020-07-20] MEDS: ATORVASTATIN 20 MG TAB PO SCH (22:33)
[2020-07-21] MEDS: MORPHINE SULFATE 4 MG/ML SYR/VIAL IV PRN ×3 (02:35→19:50)
[2020-07-21 05:00] VITALS: BP 100/66
[2020-07-21] MEDS: SODIUM CHLOR 0.9% PF (SALINE LOCK) 10ML VIAL/SYR IV SCH ×3 (06:21→21:35)
[2020-07-21] MEDS: FUROSEMIDE 40 MG/4 ML VIAL IV SCH ×2 (06:21→18:00)
[2020-07-21] MEDS: IPRATROPIUM BROM 0.5 MG/2.5ML INH SOL NEB SCH ×5 (06:25→22:38)
[2020-07-21] MEDS: ALBUTEROL SULF 2.5 MG/0.5ML(0.5%) NEB SOLN NEB SCH ×5 (06:25→22:39)
[2020-07-21 07:09] LABS: Basophils # (auto) 0 10 ^3/uL (0-0.2); Basophils % (auto) 0.3 % (0.0-2.0); Eosinophils # (auto) 0 10 ^3/uL (0-0.8); Eosinophils % (auto) 0.1 % (0.0-7.0); Hematocrit 48.5 % (36.0-46.0); Lymphocytes # (auto) 1.9 10 ^3/uL (0.4-5.4); Lymphocytes % (auto) 15.1 % (10.0-50.0); Mean Corpuscular Hemoglobin 29.5 pg (28.0-32.0); Mean Corpuscular Volume 89.5 fL (80.0-100.0); Monocytes # (auto) 1.2 10 ^3/uL (0-1.3); Monocytes % (auto) 9.5 % (0.0-12.0); Neutrophils # (auto) 9.4 10 ^3/uL (1.6-8.6); Nucleated Red Blood Cells % 0.1 %; Platelet Count (auto) 267 10^3/uL (140-450); Red Blood Cells 5.41 10^6/uL (4.0-5.20); Red Cell Distribution Width 15.5 % (11.8-14.3); White Blood Cell 12.5 10^3/uL (4.4-10.8)
[2020-07-21 07:30] LABS: Albumin 3.4 g/dL (3.4-5.0); Calcium 8.7 mg/dL (8.5-10.1); Magnesium 2.3 mg/dL (1.6-2.6); Potassium 4.4 mmol/L (3.5-5.1)
[2020-07-21 07:34] LABS: BUN/Creatinine Ratio 38.7; Bilirubin, Total 0.5 mg/dL (0.2-1.0); Phosphorus 2.7 mg/dL (2.5-4.90)
[2020-07-21] MEDS: Ensure HIGH Protein Chocolate 8oz Bottle PO SCH ×3 (08:00→18:00)
[2020-07-21 09:00] VITALS: BP_SYST 105; BP_SYST 94; BP_DIAS 61; BP_DIAS 67
[2020-07-21] MEDS: CARVEDILOL 3.125 MG TAB PO SCH ×2 (10:00→21:24)
[2020-07-21] MEDS: ASPirin 81 mg TAB PO SCH (10:00)
[2020-07-21] MEDS: SACUBITRIL-VALSARTAN 24mg/26mg TAB PO SCH (10:00)
[2020-07-21] MEDS: ASCORBIC ACID 500 MG TAB PO SCH ×2 (10:18→21:24)
[2020-07-21] MEDS: ZINC SULFATE 220mg CAP or TAB PO SCH (10:18)
[2020-07-21] MEDS: RANOLAZINE ER 500 MG TAB PO SCH ×2 (10:18→21:23)
[2020-07-21] MEDS: FLUoxetine HCL 20 MG CAP PO SCH (10:18)
[2020-07-21] MEDS: MULTIPLE VITAMIN TAB PO SCH (10:18)
[2020-07-21] MEDS: ONDANSETRON HCL 4 MG/2 ML VIAL IV PRN (10:19)
[2020-07-21] MEDS: FAMOTIDINE (10MG/ML) 2ML VL IV SCH ×2 (10:20→21:23)
[2020-07-21] MEDS: DOCUSATE SOD 100 MG CAP PO PRN (10:20)
[2020-07-21] MEDS: DexAMETHasone SOD PHOS 10MG/1ML VIAL INJ IV SCH (10:20)
[2020-07-21] MEDS: CLOPIDOGREL BISULFATE 75 MG TAB PO SCH (10:20)
[2020-07-21] MEDS: ENOXAPARIN SOD 40 MG/0.4 ML SYRINGE SC SCH (10:21)
[2020-07-21] MEDS: cefTRIAXone 1GM/50ML D5W 50 ML IV SCH (10:21)
[2020-07-21 13:00] VITALS: BP 94/61
[2020-07-21 16:37] VITALS: BP 101/58
[2020-07-21 21:11] LABS: Urine Bacteria NONE SEEN /hpf (None Seen); Urine Blood Negative /uL (Negative); Urine Specific Gravity 1.024 (1.001-1.035); Urine WBC 2 /hpf (0 - 5); Urine WBC Clumps PRESENT /hpf (None Seen)
[2020-07-21] MEDS: ATORVASTATIN 20 MG TAB PO SCH (21:23)
[2020-07-21 22:00] VITALS: BP 115/68
[2020-07-22] MEDS: MORPHINE SULFATE 4 MG/ML SYR/VIAL IV PRN ×5 (00:47→18:14)
[2020-07-22 05:00] VITALS: BP 125/71
[2020-07-22] MEDS: FUROSEMIDE 40 MG/4 ML VIAL IV SCH ×2 (05:21→18:00)
[2020-07-22] MEDS: SODIUM CHLOR 0.9% PF (SALINE LOCK) 10ML VIAL/SYR IV SCH ×2 (05:21→14:09)
[2020-07-22] MEDS: DOCUSATE SOD 100 MG CAP PO PRN (05:21)
[2020-07-22] MEDS: IPRATROPIUM BROM 0.5 MG/2.5ML INH SOL NEB SCH ×4 (06:23→18:16)
[2020-07-22] MEDS: ALBUTEROL SULF 2.5 MG/0.5ML(0.5%) NEB SOLN NEB SCH ×4 (06:23→18:16)
[2020-07-22] MEDS: Ensure HIGH Protein Chocolate 8oz Bottle PO SCH ×3 (08:08→18:07)
[2020-07-22 09:00] VITALS: BP 113/73
[2020-07-22] MEDS: FAMOTIDINE (10MG/ML) 2ML VL IV SCH (09:52)
[2020-07-22] MEDS: DexAMETHasone SOD PHOS 10MG/1ML VIAL INJ IV SCH (09:52)
[2020-07-22] MEDS: ASPirin 81 mg TAB PO SCH (09:53)
[2020-07-22] MEDS: ZINC SULFATE 220mg CAP or TAB PO SCH (09:53)
[2020-07-22] MEDS: MULTIPLE VITAMIN TAB PO SCH (09:53)
[2020-07-22] MEDS: CARVEDILOL 3.125 MG TAB PO SCH (09:53)
[2020-07-22] MEDS: CLOPIDOGREL BISULFATE 75 MG TAB PO SCH (09:54)
[2020-07-22] MEDS: ASCORBIC ACID 500 MG TAB PO SCH (09:54)
[2020-07-22] MEDS: FLUoxetine HCL 20 MG CAP PO SCH (09:54)
[2020-07-22] MEDS: RANOLAZINE ER 500 MG TAB PO SCH (09:54)
[2020-07-22] MEDS: ENOXAPARIN SOD 40 MG/0.4 ML SYRINGE SC SCH (09:54)
[2020-07-22] MEDS ORDERED: SACUBITRIL-VALSARTAN 24mg/26mg TAB PO SCH (10:00)
[2020-07-22 13:00] VITALS: BP 107/71
[2020-07-22] MEDS ORDERED: LACTULOSE 20Gm/30ML SOLN PO ONE (14:30)
[2020-07-22 17:00] VITALS: BP 113/69
[2020-07-22 17:44] VITALS: BP 113/69
[2020-07-22] MEDS: ONDANSETRON HCL 4 MG/2 ML VIAL IV PRN (18:25)
== END 2020-07-22 21:04 | DRG 291 ==
LOC: EDBD 18:41 → ER 18:46 → TELE 07-17 00:16 → TELE-WESTW 07-17 15:21
PROVIDERS: ADMIT Nurse Practitioner Family; ATTEND Internal Medicine
DX: I13.0 Hypertensive heart and chronic kidney disease with heart failure and stage 1 through stage 4 chronic kidney disease, or unspecified chronic kidney disease (principal); I50.43 Acute on chronic combined systolic (congestive) and diastolic (congestive) heart failure; J44.1 Chronic obstructive pulmonary disease with (acute) exacerbation; I25.110 Atherosclerotic heart disease of native coronary artery with unstable angina pectoris; N18.31 Chronic kidney disease, stage 3a; E78.5 Hyperlipidemia, unspecified; F32.9 Major depressive disorder, single episode, unspecified; F41.9 Anxiety disorder, unspecified; E87.6 Hypokalemia; I25.5 Ischemic cardiomyopathy; Z20.822 Contact with and (suspected) exposure to COVID-19; D72.829 Elevated white blood cell count, unspecified; K21.9 Gastro-esophageal reflux disease without esophagitis; Z83.3 Family history of diabetes mellitus; Z82.49 Family history of ischemic heart disease and other diseases of the circulatory system; Z90.710 Acquired absence of both cervix and uterus; Z95.5 Presence of coronary angioplasty implant and graft; Z87.891 Personal history of nicotine dependence; I25.2 Old myocardial infarction; Z95.810 Presence of automatic (implantable) cardiac defibrillator; Z88.5 Allergy status to narcotic agent; Z88.1 Allergy status to other antibiotic agents; Z90.49 Acquired absence of other specified parts of digestive tract
CPT/HCPCS: 36415; 36600; 71045; 80053; 81001; 82728; 82805; 83735; 83880; 84100; 84484; 85007; 85025; 85027; 85610; 85730; 86141; 87081; 87426; 93005; 93306; 94640; 96365; 96375; G0378; J0696; J1100; J2405; J3490

== ENCOUNTER 2020-08-04 07:36 | Day surgery (SDC) | payer MEDICARE, MEDICAID ==
[~2020-08-04] VITALS: Ht 162.6 cm; Wt 63.5 kg
[2020-08-04] MEDS ORDERED: VANCOMYCIN 1GM/250ML 250 ML IV ONE (12:31)
[2020-08-04] MEDS ORDERED: LIDOCAINE 2%HCL (LOCAL ANESTH.) INJ 20ML MDV ONE ×2 (12:44→13:38)
[2020-08-04] MEDS ORDERED: VANCOMYCIN HCL 1000 MG VL ONE (13:01)
[2020-08-04] MEDS ORDERED: fentaNYL CITRATE 100 MCG/2 ML VL ONE (13:01)
[2020-08-04] MEDS ORDERED: MIDAZOLAM HCL 2MG/2ML 2ml VIAL (1mg/ml) ONE (13:01)
[2020-08-04] MEDS ORDERED: ACETAMINOPHEN 325 MG TAB PO PRN (14:30)
[2020-08-04] MEDS ORDERED: HYDROcodone-ACET 5/325MG TAB PO PRN (14:30)
== END 2020-08-04 14:10 | disposition home or self-care (01) ==
LOC: CATH 07:36
PROVIDERS: ATTEND Internal Medicine Cardiovascular Disease
DX: Z45.02 Encounter for adjustment and management of automatic implantable cardiac defibrillator (principal); J44.9 Chronic obstructive pulmonary disease, unspecified; I25.709 Atherosclerosis of coronary artery bypass graft(s), unspecified, with unspecified angina pectoris; F32.9 Major depressive disorder, single episode, unspecified; F41.9 Anxiety disorder, unspecified; I25.2 Old myocardial infarction; I11.0 Hypertensive heart disease with heart failure; K21.9 Gastro-esophageal reflux disease without esophagitis; Z20.822 Contact with and (suspected) exposure to COVID-19; Z87.891 Personal history of nicotine dependence; Z98.890 Other specified postprocedural states; Z79.899 Other long term (current) drug therapy; Z88.8 Allergy status to other drugs, medicaments and biological substances; Z88.5 Allergy status to narcotic agent; Z90.710 Acquired absence of both cervix and uterus; Z95.5 Presence of coronary angioplasty implant and graft; Z90.721 Acquired absence of ovaries, unilateral
CPT/HCPCS: 33263; 36415; 87426; 93005; C1882; J2250; J3010; J3370; J7030; 99152; 99153

== ENCOUNTER → 2020-08-25 | Outpatient (CLI) | payer MEDICARE, MEDICAID | END | disposition home or self-care (01) | LOC: Rad HDHVI 12:36 | PROVIDERS: ATTEND Internal Medicine Cardiovascular Disease | DX: I05.8 Other rheumatic mitral valve diseases (principal); I50.23 Acute on chronic systolic (congestive) heart failure; I25.2 Old myocardial infarction | CPT/HCPCS: 93306 ==

== ENCOUNTER 2020-08-31 23:15 | Emergency (ER) | payer MEDICARE, MEDICAID ==
[~2020-08-31] VITALS: Ht 162.6 cm; Wt 65.3 kg
[~2020-08-31 23:15] MED LIST changes: -ADENOSINE 55 MG in GIVE UN-DILUTED 0 ML IV ONE
[2020-09-01 00:28] LABS: Basophils # (auto) 0 10 ^3/uL (0-0.2); Basophils % (auto) 0.5 % (0.0-2.0); Eosinophils # (auto) 0.2 10 ^3/uL (0-0.8); Eosinophils % (auto) 2.1 % (0.0-7.0); Hematocrit 40.7 % (36.0-46.0); Hemoglobin 13.8 g/dL (12.2-16.2); Lymphocytes # (auto) 2.3 10 ^3/uL (0.4-5.4); Lymphocytes % (auto) 29.8 % (10.0-50.0); Mean Corpuscular Hgb Conc. 33.9 g/dL (32.0-36.0); Mean Corpuscular Volume 91.3 fL (80.0-100.0); Monocytes # (auto) 1.1 10 ^3/uL (0-1.3); Monocytes % (auto) 14.1 % (0.0-12.0); Neutrophils # (auto) 4.1 10 ^3/uL (1.6-8.6); Neutrophils % (auto) 53.5 % (37.0-80.0); Platelet Count (auto) 214 10^3/uL (140-450); Red Blood Cells 4.46 10^6/uL (4.0-5.20); Red Cell Distribution Width 16.1 % (11.8-14.3); White Blood Cell 7.7 10^3/uL (4.4-10.8)
[2020-09-01 00:44] LABS: INR 0.97 (0.9-1.15); Partial Thromboplastin Time 28.8 sec (23.0-31.2)
[2020-09-01 00:49] LABS: Albumin 3.9 g/dL (3.4-5.0); Anion Gap 8 (5-15); BUN/Creatinine Ratio 51.1; Blood Urea Nitrogen 45 mg/dL (7-18); Calcium 8.8 mg/dL (8.5-10.1); Carbon Dioxide 27 mmol/L (21-32); Chloride 106 mmol/L (98-107); GFR African American 80 mL/min; GFR Non-African American 66 mL/min; Glucose 101 mg/dL (74-106); Potassium 4.2 mmol/L (3.5-5.1); Sodium 141 mmol/L (136-145)
[2020-09-01 00:55] LABS: Alanine Aminotransferase 35 U/L (13-56); Alkaline Phosphatase 92 U/L (45-117); Aspartate Aminotransferase 24 U/L (15-37); Bilirubin, Total 0.4 mg/dL (0.2-1.0)
[2020-09-01 02:59] LABS: Urine Amorphous Crystal FEW /hpf (None Seen); Urine Bacteria FEW /hpf (None Seen); Urine Blood Negative /uL (Negative); Urine Mucus FEW (None Seen); Urine Specific Gravity 1.011 (1.001-1.035); Urine WBC 2 /hpf (0 - 5)
[2020-09-01] MEDS ORDERED: MORPHINE SULFATE 4 MG/ML SYR/VIAL IV ONE ×3 (05:30→06:30)
[2020-09-01] MEDS ORDERED: ONDANSETRON HCL 4 MG/2 ML VIAL ONE (05:39)
[2020-09-01] MEDS ORDERED: ONDANSETRON HCL 4 MG/2 ML VIAL IV ONE ×2 (05:45→17:00)
[2020-09-01] MEDS ORDERED: MORPHINE SULF INJ 2 MG/ML SYRINGE 1ML IV ONE (17:00)
[2020-09-01 20:47] VITALS: BP 138/77
== END 2020-09-01 21:00 | disposition home or self-care (01) ==
LOC: EDBD 23:15 → ER 23:18
DX: I13.0 Hypertensive heart and chronic kidney disease with heart failure and stage 1 through stage 4 chronic kidney disease, or unspecified chronic kidney disease (principal); I50.9 Heart failure, unspecified; N18.9 Chronic kidney disease, unspecified; F41.9 Anxiety disorder, unspecified; I25.810 Atherosclerosis of coronary artery bypass graft(s) without angina pectoris; J44.9 Chronic obstructive pulmonary disease, unspecified; K21.9 Gastro-esophageal reflux disease without esophagitis; E78.5 Hyperlipidemia, unspecified; I25.2 Old myocardial infarction; Z20.822 Contact with and (suspected) exposure to COVID-19; Z87.891 Personal history of nicotine dependence; Z95.0 Presence of cardiac pacemaker; Z98.61 Coronary angioplasty status; Z79.899 Other long term (current) drug therapy; Z88.5 Allergy status to narcotic agent
CPT/HCPCS: 36415; 71045; 80053; 81001; 83605; 83880; 84484; 85025; 85610; 85730; 87040; 87426; 93005; 96374; 96375; 96376; 99285; C9803; J2270; J2405; U0003

== ENCOUNTER → 2020-08-31 | Outpatient (CLI) | payer MEDICARE, MEDICAID ==
[~2020-08-31] VITALS: Ht 162.6 cm; Wt 65.8 kg
[~2020-08-31] MED LIST changes: +ADENOSINE 55 MG in GIVE UN-DILUTED 0 ML IV ONE
[2020-08-31 10:17] VITALS: BP 130/75
[2020-08-31 10:30] VITALS: BP 110/67
== END | disposition home or self-care (01) ==
LOC: Rad HDHVI 09:31
PROVIDERS: ATTEND Internal Medicine Cardiovascular Disease
DX: Z01.812 Encounter for preprocedural laboratory examination (principal); I70.0 Atherosclerosis of aorta; M47.814 Spondylosis without myelopathy or radiculopathy, thoracic region; I51.7 Cardiomegaly
CPT/HCPCS: 36415; 71046; 93005; G0463

== ENCOUNTER → 2020-09-08 | Outpatient (CLI) | payer MEDICARE, MEDICAID ==
[~2020-09-08] VITALS: Ht 162.6 cm; Wt 65.3 kg
[~2020-09-08] MED LIST changes: +ADENOSINE 55 MG in GIVE UN-DILUTED 0 ML IV ONE; +ADENOSINE 90 MG/30 ML INJ IV ONE; +ADENOSINE IV ONE; +GIVE UN DILUTED IV ONE
== END | disposition home or self-care (01) ==
LOC: Rad HDHVI 13:59
PROVIDERS: ATTEND Internal Medicine Cardiovascular Disease
DX: I25.10 Atherosclerotic heart disease of native coronary artery without angina pectoris (principal); I10 Essential (primary) hypertension; E78.5 Hyperlipidemia, unspecified; R07.9 Chest pain, unspecified; I25.2 Old myocardial infarction; Z95.0 Presence of cardiac pacemaker; Z95.1 Presence of aortocoronary bypass graft; Z82.49 Family history of ischemic heart disease and other diseases of the circulatory system
CPT/HCPCS: 78452; 93005; 96374; 96375; A9500; J0153

== ENCOUNTER 2020-10-07 08:26 | Inpatient (IN) | payer MEDICARE, MEDICAID ==
[~2020-10-07] VITALS: Ht 162.6 cm; Wt 55.5 kg
[~2020-10-07 08:26] MED LIST changes: -ADENOSINE 55 MG in GIVE UN-DILUTED 0 ML IV ONE; -ADENOSINE 90 MG/30 ML INJ IV ONE; -ADENOSINE IV ONE; -GIVE UN DILUTED IV ONE
[2020-10-07] MEDS ORDERED: IPRATROPIUM BROM 0.5 MG/2.5ML INH SOL NEB ONE (09:15)
[2020-10-07] MEDS ORDERED: ONDANSETRON HCL 4 MG/2 ML VIAL IV ONE ×2 (09:15→13:30)
[2020-10-07] MEDS ORDERED: ALBUTEROL SULF 2.5 MG/0.5ML(0.5%) NEB SOLN NEB ONE (09:15)
[2020-10-07] MEDS ORDERED: SODIUM CHLORIDE 0.9% 1,000 ML IV ONE (09:15)
[2020-10-07] MEDS ORDERED: MORPHINE SULFATE 4 MG/ML SYR/VIAL IV ONE (09:15)
[2020-10-07 09:31] LABS: Basophils # (auto) 0 10 ^3/uL (0-0.2); Basophils % (auto) 0.4 % (0.0-2.0); Eosinophils # (auto) 0.1 10 ^3/uL (0-0.8); Eosinophils % (auto) 0.7 % (0.0-7.0); Hematocrit 43.2 % (36.0-46.0); Hemoglobin 14.6 g/dL (12.2-16.2); Lymphocytes # (auto) 1.3 10 ^3/uL (0.4-5.4); Lymphocytes % (auto) 13.6 % (10.0-50.0); Mean Corpuscular Hemoglobin 31.4 pg (28.0-32.0); Mean Corpuscular Hgb Conc. 33.8 g/dL (32.0-36.0); Monocytes # (auto) 1.1 10 ^3/uL (0-1.3); Monocytes % (auto) 11.1 % (0.0-12.0); Neutrophils % (auto) 74.2 % (37.0-80.0); Nucleated Red Blood Cells % 0.1 %; Platelet Count (auto) 217 10^3/uL (140-450); Red Blood Cells 4.64 10^6/uL (4.0-5.20); Red Cell Distribution Width 13.8 % (11.8-14.3); White Blood Cell 9.5 10^3/uL (4.4-10.8)
[2020-10-07 09:53] LABS: Albumin 3.4 g/dL (3.4-5.0); Anion Gap 7 (5-15); Blood Urea Nitrogen 37 mg/dL (7-18); Calcium 8.8 mg/dL (8.5-10.1); Carbon Dioxide 22 mmol/L (21-32); Chloride 105 mmol/L (98-107); Glucose 99 mg/dL (74-106); Magnesium 2.3 mg/dL (1.6-2.6); Potassium 4.2 mmol/L (3.5-5.1); Sodium 134 mmol/L (136-145)
[2020-10-07 10:01] LABS: BUN/Creatinine Ratio 28.2; GFR African American 51 mL/min; GFR Non-African American 42 mL/min
[2020-10-07 10:02] LABS: Alanine Aminotransferase 16 U/L (13-56); Alkaline Phosphatase 80 U/L (45-117); Aspartate Aminotransferase 21 U/L (15-37); Bilirubin, Total 0.8 mg/dL (0.2-1.0); Total Protein 6.9 g/dL (6.4-8.2)
[2020-10-07 10:11] LABS: Urine Bacteria NONE SEEN /hpf (None Seen); Urine Blood Negative /uL (Negative); Urine Specific Gravity 1.016 (1.001-1.035); Urine WBC 5 /hpf (0 - 5)
[2020-10-07 10:19] LABS: INR 1.07 (0.9-1.15); Partial Thromboplastin Time 30.8 sec (23.0-31.2)
[2020-10-07] MEDS ORDERED: MORPHINE SULF INJ 2 MG/ML SYRINGE 1ML IV ONE (13:30)
[2020-10-07] MEDS ORDERED: ACETAMINOPHEN 500 MG TAB PO ONE (20:15)
[2020-10-07] MEDS ORDERED: predniSONE 20 MG TAB PO ONE (20:45)
[2020-10-07] MEDS ORDERED: DOCUSATE SOD 100 MG CAP PO PRN (20:45)
[2020-10-07] MEDS ORDERED: ALPRAZolam 0.25 MG TAB PO PRN (20:45)
[2020-10-07] MEDS ORDERED: KETOROLAC TROMETH 30 MG/ML 1ML VIAL IV PRN (20:45)
[2020-10-07] MEDS ORDERED: KETOROLAC TROMETH 30 MG/ML 1ML VIAL IV ONE (20:45)
[2020-10-07] MEDS ORDERED: MORPHINE SULF INJ 2 MG/ML SYRINGE 1ML IV PRN (20:45)
[2020-10-07] MEDS ORDERED: NITROGLYCERIN 0.4 MG SL TAB SL PRN (20:45)
[2020-10-07] MEDS ORDERED: HYDROcodone-ACET 10/325MG TAB PO PRN (21:00)
[2020-10-07] MEDS ORDERED: PREGABALIN 25 MG CAP PO PRN (21:00)
[2020-10-07] MEDS ORDERED: FUROSEMIDE 40 MG TAB PO SCH (21:24)
[2020-10-07] MEDS ORDERED: DOXYCYCLINE 100 MG TAB/CAP PO SCH (22:00)
[2020-10-07] MEDS ORDERED: CARVEDILOL 3.125 MG TAB PO SCH (22:00)
[2020-10-07 22:15] VITALS: BP 109/62
[2020-10-07 23:06] VITALS: BP 109/62
[2020-10-08] VITALS (7 sets, daily range): BP systolic 109–147; BP diastolic 62–73
[2020-10-08] MEDS ORDERED: HYDROcodone-ACET 10/325MG TAB PO PRN (04:15)
[2020-10-08] MEDS ORDERED: SODIUM CHLORIDE 0.9% 1,000 ML IV ONE (04:15)
[2020-10-08] MEDS ORDERED: ALPRAZolam 0.25 MG TAB PO PRN (04:15)
[2020-10-08] MEDS ORDERED: DOCUSATE SOD 100 MG CAP PO PRN (04:15)
[2020-10-08] MEDS ORDERED: NITROGLYCERIN 0.4 MG SL TAB SL PRN (04:15)
[2020-10-08] MEDS: FUROSEMIDE 40 MG TAB PO SCH ×2 (05:45→18:38)
[2020-10-08] MEDS: PREGABALIN 25 MG CAP PO PRN ×2 (05:45→13:54)
[2020-10-08] MEDS: CARVEDILOL 3.125 MG TAB PO SCH ×2 (09:22→21:47)
[2020-10-08] MEDS: POTASSIUM CHL 10 Meq TABLET PO SCH (09:22)
[2020-10-08] MEDS: FAMOTIDINE 20 MG TAB PO SCH (09:22)
[2020-10-08] MEDS: FLUoxetine HCL 20 MG CAP PO SCH (09:23)
[2020-10-08] MEDS: KETOROLAC TROMETH 30 MG/ML 1ML VIAL IV PRN ×3 (09:24→22:13)
[2020-10-08] MEDS ORDERED: FAMOTIDINE 20 MG TAB PO SCH (10:00)
[2020-10-08] MEDS ORDERED: FLUoxetine HCL 20 MG CAP PO SCH (10:00)
[2020-10-08] MEDS ORDERED: DOXYCYCLINE 100 MG TAB/CAP PO SCH (10:00)
[2020-10-08] MEDS ORDERED: predniSONE 20 MG TAB PO SCH ×2 (10:00)
[2020-10-08] MEDS ORDERED: POTASSIUM CHL 10 Meq TABLET PO SCH (10:00)
[2020-10-08] MEDS: IPRATROPIUM BROM 0.5 MG/2.5ML INH SOL NEB SCH ×2 (15:07→19:37)
[2020-10-08] MEDS: methylPREDNISolone SOD SUCC 40 MG/ML VL IV SCH (21:47)
[2020-10-09] MEDS: KETOROLAC TROMETH 30 MG/ML 1ML VIAL IV PRN ×3 (05:13→18:10)
[2020-10-09] MEDS: FUROSEMIDE 40 MG TAB PO SCH ×2 (05:14→18:10)
[2020-10-09 05:45] VITALS: BP 130/63
[2020-10-09] MEDS: IPRATROPIUM BROM 0.5 MG/2.5ML INH SOL NEB SCH ×4 (06:10→22:28)
[2020-10-09] MEDS: PREGABALIN 25 MG CAP PO SCH ×4 (06:57→23:31)
[2020-10-09 09:00] VITALS: BP 121/69
[2020-10-09] MEDS: CARVEDILOL 3.125 MG TAB PO SCH ×2 (09:43→23:31)
[2020-10-09] MEDS: FAMOTIDINE 20 MG TAB PO SCH (09:43)
[2020-10-09] MEDS: FLUoxetine HCL 20 MG CAP PO SCH (09:43)
[2020-10-09] MEDS: levoFLOXacin 250MG 50 ML IV SCH (09:44)
[2020-10-09] MEDS: methylPREDNISolone SOD SUCC 40 MG/ML VL IV SCH ×2 (09:44→23:30)
[2020-10-09] MEDS: POTASSIUM CHL 10 Meq TABLET PO SCH (09:45)
[2020-10-09 12:51] VITALS: BP 114/62
[2020-10-09 17:00] VITALS: BP 146/79
[2020-10-09] MEDS: MORPHINE SULF INJ 2 MG/ML SYRINGE 1ML IV PRN ×2 (19:58→21:08)
[2020-10-09 21:20] VITALS: BP 130/73
[2020-10-09] MEDS ORDERED: ENOXAPARIN SOD 30 MG/0.3 ML SYRINGE IV ONE (21:45)
[2020-10-10] MEDS: KETOROLAC TROMETH 30 MG/ML 1ML VIAL IV PRN ×3 (00:16→19:53)
[2020-10-10 05:00] VITALS: BP 130/69
[2020-10-10] MEDS: PREGABALIN 25 MG CAP PO SCH ×3 (05:32→21:52)
[2020-10-10 05:41] LABS: Urine WBC None Seen /hpf (0 - 5)
[2020-10-10] MEDS: FUROSEMIDE 40 MG TAB PO SCH ×2 (05:49→17:40)
[2020-10-10 05:55] LABS: Basophils # (auto) 0 10 ^3/uL (0-0.2); Basophils % (auto) 0.1 % (0.0-2.0); Eosinophils # (auto) 0 10 ^3/uL (0-0.8); Hematocrit 38.7 % (36.0-46.0); Hemoglobin 13.4 g/dL (12.2-16.2); Lymphocytes # (auto) 1.4 10 ^3/uL (0.4-5.4); Lymphocytes % (auto) 8.8 % (10.0-50.0); Mean Corpuscular Hemoglobin 32.2 pg (28.0-32.0); Mean Corpuscular Hgb Conc. 34.7 g/dL (32.0-36.0); Mean Corpuscular Volume 92.6 fL (80.0-100.0); Monocytes # (auto) 0.3 10 ^3/uL (0-1.3); Monocytes % (auto) 2.1 % (0.0-12.0); Neutrophils # (auto) 13.7 10 ^3/uL (1.6-8.6); Platelet Count (auto) 217 10^3/uL (140-450); Red Blood Cells 4.17 10^6/uL (4.0-5.20); Red Cell Distribution Width 13.8 % (11.8-14.3); White Blood Cell 15.4 10^3/uL (4.4-10.8)
[2020-10-10 06:06] LABS: Urine Bacteria NONE SEEN /hpf (None Seen); Urine Blood Negative /uL (Negative); Urine Hyaline Cast FEW /lpf (0 - 2); Urine Specific Gravity 1.011 (1.001-1.035)
[2020-10-10 06:16] LABS: INR 1.03 (0.9-1.15); Partial Thromboplastin Time 28.4 sec (23.0-31.2)
[2020-10-10 06:21] LABS: Potassium 4.1 mmol/L (3.5-5.1)
[2020-10-10 06:38] LABS: Albumin 3.4 g/dL (3.4-5.0); BUN/Creatinine Ratio 37.4; Bilirubin, Total 0.4 mg/dL (0.2-1.0); Calcium 8.6 mg/dL (8.5-10.1); Total Protein 6.5 g/dL (6.4-8.2)
[2020-10-10] MEDS: IPRATROPIUM BROM 0.5 MG/2.5ML INH SOL NEB SCH ×4 (07:57→19:21)
[2020-10-10 08:52] VITALS: BP 134/77
[2020-10-10] MEDS: POTASSIUM CHL 10 Meq TABLET PO SCH (10:04)
[2020-10-10] MEDS: FAMOTIDINE 20 MG TAB PO SCH (10:04)
[2020-10-10] MEDS: FLUoxetine HCL 20 MG CAP PO SCH (10:04)
[2020-10-10] MEDS: CARVEDILOL 3.125 MG TAB PO SCH ×2 (10:05→21:52)
[2020-10-10] MEDS: levoFLOXacin 250MG 50 ML IV SCH (10:05)
[2020-10-10] MEDS: methylPREDNISolone SOD SUCC 40 MG/ML VL IV SCH ×2 (10:08→21:52)
[2020-10-10 13:00] VITALS: BP 121/78
[2020-10-10] MEDS ORDERED: fentaNYL CITRATE 100 MCG/2 ML VL ONE (13:20)
[2020-10-10] MEDS ORDERED: ANGIOMAX 250 MG VIAL IV ONE (13:20)
[2020-10-10] MEDS ORDERED: MIDAZOLAM HCL 1MG/1ML-2 ML VIAL ONE (13:21)
[2020-10-10] MEDS ORDERED: IOHEXOL 350 MG/ML 100ML IJ ONE ×2 (13:21→13:39)
[2020-10-10] MEDS ORDERED: LIDOCAINE 2%HCL (LOCAL ANESTH.) INJ 20ML MDV ONE (13:21)
[2020-10-10] MEDS ORDERED: SODIUM CHL 0.9% 0 ML ONE (13:21)
[2020-10-10 16:56] VITALS: BP 137/75
[2020-10-10] MEDS ORDERED: HYDROcodone-ACET 10/325MG TAB PO PRN (18:15)
[2020-10-10] MEDS: traMADol HCL 50 MG TAB PO SCH (21:53)
[2020-10-10 22:00] VITALS: BP 118/71
[2020-10-11] MEDS: KETOROLAC TROMETH 30 MG/ML 1ML VIAL IV PRN ×3 (02:47→16:18)
[2020-10-11 05:00] VITALS: BP 128/67
[2020-10-11] MEDS: FUROSEMIDE 40 MG TAB PO SCH ×2 (05:45→18:01)
[2020-10-11] MEDS: PREGABALIN 25 MG CAP PO SCH ×3 (05:45→22:40)
[2020-10-11] MEDS: IPRATROPIUM BROM 0.5 MG/2.5ML INH SOL NEB SCH ×3 (07:10→23:53)
[2020-10-11 08:57] VITALS: BP 114/62
[2020-10-11] MEDS: CARVEDILOL 3.125 MG TAB PO SCH ×2 (09:58→22:41)
[2020-10-11] MEDS: FLUoxetine HCL 20 MG CAP PO SCH (09:58)
[2020-10-11] MEDS: POTASSIUM CHL 10 Meq TABLET PO SCH (09:58)
[2020-10-11] MEDS: levoFLOXacin 250MG 50 ML IV SCH (09:58)
[2020-10-11] MEDS: traMADol HCL 50 MG TAB PO SCH ×2 (09:59→22:40)
[2020-10-11] MEDS: methylPREDNISolone SOD SUCC 40 MG/ML VL IV SCH ×2 (09:59→22:46)
[2020-10-11] MEDS: FAMOTIDINE 20 MG TAB PO SCH (10:17)
[2020-10-11] MEDS: SACUBITRIL-VALSARTAN 24mg/26mg TAB PO SCH (10:18)
[2020-10-11 13:00] VITALS: BP 126/73
[2020-10-11 15:46] LABS: Urine Bacteria NONE SEEN /hpf (None Seen); Urine Blood Negative /uL (Negative); Urine Specific Gravity 1.018 (1.001-1.035); Urine WBC 1 /hpf (0 - 5)
[2020-10-11 16:53] VITALS: BP 128/88
[2020-10-11 20:00] VITALS: BP 108/75
[2020-10-11 22:00] VITALS: BP 108/74
[2020-10-12 05:21] VITALS: BP 113/73
[2020-10-12] MEDS: PREGABALIN 25 MG CAP PO SCH ×3 (05:45→22:16)
[2020-10-12] MEDS: KETOROLAC TROMETH 30 MG/ML 1ML VIAL IV PRN ×3 (05:46→19:04)
[2020-10-12] MEDS: FUROSEMIDE 40 MG TAB PO SCH ×2 (05:46→19:03)
[2020-10-12] MEDS: IPRATROPIUM BROM 0.5 MG/2.5ML INH SOL NEB SCH ×3 (06:14→22:53)
[2020-10-12 09:00] VITALS: BP 99/53
[2020-10-12] MEDS: CARVEDILOL 3.125 MG TAB PO SCH ×2 (10:00→22:16)
[2020-10-12] MEDS: methylPREDNISolone SOD SUCC 40 MG/ML VL IV SCH (10:28)
[2020-10-12] MEDS: FLUoxetine HCL 20 MG CAP PO SCH (10:29)
[2020-10-12] MEDS: FAMOTIDINE 20 MG TAB PO SCH (10:29)
[2020-10-12] MEDS: traMADol HCL 50 MG TAB PO SCH ×2 (10:29→22:15)
[2020-10-12] MEDS: SACUBITRIL-VALSARTAN 24mg/26mg TAB PO SCH (10:30)
[2020-10-12] MEDS: POTASSIUM CHL 10 Meq TABLET PO SCH (10:33)
[2020-10-12 12:39] VITALS: BP 142/77
[2020-10-12 16:39] VITALS: BP 95/63
[2020-10-12 20:00] VITALS: BP 114/65
[2020-10-12 22:00] VITALS: BP 114/65
[2020-10-13] MEDS: KETOROLAC TROMETH 30 MG/ML 1ML VIAL IV PRN (01:25)
[2020-10-13] MEDS: FUROSEMIDE 40 MG TAB PO SCH (05:36)
[2020-10-13] MEDS: PREGABALIN 25 MG CAP PO SCH ×2 (05:37→14:56)
[2020-10-13 05:45] VITALS: BP 121/7
[2020-10-13] MEDS: IPRATROPIUM BROM 0.5 MG/2.5ML INH SOL NEB SCH ×2 (07:23→14:12)
[2020-10-13] MEDS: FLUoxetine HCL 20 MG CAP PO SCH (08:51)
[2020-10-13] MEDS: traMADol HCL 50 MG TAB PO SCH (08:51)
[2020-10-13] MEDS: FAMOTIDINE 20 MG TAB PO SCH (08:51)
[2020-10-13] MEDS: POTASSIUM CHL 10 Meq TABLET PO SCH (08:51)
[2020-10-13] MEDS: SACUBITRIL-VALSARTAN 24mg/26mg TAB PO SCH (08:51)
[2020-10-13] MEDS: CARVEDILOL 3.125 MG TAB PO SCH (08:52)
[2020-10-13 09:00] VITALS: BP 125/71
[2020-10-13 11:41] VITALS: BP 123/71
[2020-10-13 12:44] VITALS: BP 98/58
[2020-10-13] MEDS ORDERED: fentaNYL 25MCG/HR 25 MCG/HR PAT TD SCH (16:45)
[2020-10-13 17:00] VITALS: BP 115/73
== END 2020-10-13 17:30 | DRG 286 ==
LOC: ER 08:26 → EDBD 08:26 → TELE-WESTW 20:57 → ER 22:05
PROVIDERS: ADMIT Internal Medicine Cardiovascular Disease; ATTEND Internal Medicine Cardiovascular Disease
PROC: 4A023N7 Measurement of Cardiac Sampling and Pressure, Left Heart, Percutaneous Approach (ICD-10-PCS; principal; 2020-10-10)
PROC: B2111ZZ Fluoroscopy of Multiple Coronary Arteries using Low Osmolar Contrast (ICD-10-PCS; 2020-10-10)
PROC: B2151ZZ Fluoroscopy of Left Heart using Low Osmolar Contrast (ICD-10-PCS; 2020-10-10)
PROC: B21F1ZZ Fluoroscopy of Other Bypass Graft using Low Osmolar Contrast (ICD-10-PCS; 2020-10-10)
PROC: B2181ZZ Fluoroscopy of Left Internal Mammary Bypass Graft using Low Osmolar Contrast (ICD-10-PCS; 2020-10-10)
DX: I25.5 Ischemic cardiomyopathy (principal); I50.23 Acute on chronic systolic (congestive) heart failure; N39.0 Urinary tract infection, site not specified; I13.0 Hypertensive heart and chronic kidney disease with heart failure and stage 1 through stage 4 chronic kidney disease, or unspecified chronic kidney disease; M79.10 Myalgia, unspecified site; J44.9 Chronic obstructive pulmonary disease, unspecified; E78.5 Hyperlipidemia, unspecified; Z20.822 Contact with and (suspected) exposure to COVID-19; E78.00 Pure hypercholesterolemia, unspecified; I25.10 Atherosclerotic heart disease of native coronary artery without angina pectoris; G89.29 Other chronic pain; Z82.49 Family history of ischemic heart disease and other diseases of the circulatory system; Z88.5 Allergy status to narcotic agent; Z86.16 Personal history of COVID-19; Z87.891 Personal history of nicotine dependence; Z90.710 Acquired absence of both cervix and uterus; Z95.1 Presence of aortocoronary bypass graft; Z95.810 Presence of automatic (implantable) cardiac defibrillator; N18.31 Chronic kidney disease, stage 3a
CPT/HCPCS: 36415; 71045; 80053; 81001; 83735; 83880; 84443; 84484; 85025; 85610; 85652; 85730; 86225; 86235; 86850; 86900; 86901; 87040; 87081; 87426; 93005; 93459; 94640; 96361; 96374; 96375; 97163; 99152; G0378; J1885; J2250; J2405

== ENCOUNTER 2020-12-28 21:49 | Inpatient (IN) | payer MEDICARE, MEDICAID ==
[~2020-12-28] VITALS: Ht 165.1 cm; Wt 74.6 kg
[2020-12-28] MEDS ORDERED: ALPRAZolam 0.5 MG TAB PO PRN (22:30)
[2020-12-28] MEDS ORDERED: MORPHINE SULFATE INJECTION 2 MG/2 ML SYRG IV PRN (22:30)
[2020-12-28] MEDS ORDERED: NITROGLYCERIN 0.4 MG SL TAB SL PRN (22:30)
[2020-12-28] MEDS ORDERED: HYDROcodone-ACET 5/325MG TAB PO PRN (22:30)
[2020-12-28 23:19] LABS: Basophils # (auto) 0.1 10 ^3/uL (0-0.2); Basophils % (auto) 0.8 % (0.0-2.0); Eosinophils # (auto) 0.3 10 ^3/uL (0-0.8); Eosinophils % (auto) 3.9 % (0.0-7.0); Hematocrit 43.4 % (36.0-46.0); Hemoglobin 14.5 g/dL (12.2-16.2); Lymphocytes # (auto) 2.6 10 ^3/uL (0.4-5.4); Lymphocytes % (auto) 31.5 % (10.0-50.0); Mean Corpuscular Hemoglobin 30.5 pg (28.0-32.0); Mean Corpuscular Hgb Conc. 33.4 g/dL (32.0-36.0); Mean Corpuscular Volume 91.3 fL (80.0-100.0); Monocytes % (auto) 11.8 % (0.0-12.0); Neutrophils # (auto) 4.3 10 ^3/uL (1.6-8.6); Nucleated Red Blood Cells % 0.1 %; Red Blood Cells 4.76 10^6/uL (4.0-5.20); Red Cell Distribution Width 13.8 % (11.8-14.3); White Blood Cell 8.2 10^3/uL (4.4-10.8)
[2020-12-28 23:35] LABS: INR 1.04 (0.9-1.15); Partial Thromboplastin Time 31.4 sec (23.6-33.0)
[2020-12-28 23:38] LABS: Albumin 3.5 g/dL (3.4-5.0); Anion Gap 4 (5-15); Blood Urea Nitrogen 24 mg/dL (7-18); Calcium 8.7 mg/dL (8.5-10.1); Carbon Dioxide 25 mmol/L (21-32); Chloride 110 mmol/L (98-107); Glucose 99 mg/dL (74-106); Magnesium 2.4 mg/dL (1.6-2.6); Potassium 4.6 mmol/L (3.5-5.1); Sodium 139 mmol/L (136-145)
[2020-12-28 23:41] LABS: Amylase 59 U/L (25-115); BUN/Creatinine Ratio 28.6; GFR African American 85 mL/min; GFR Non-African American 70 mL/min; Lipase 49 U/L (73-393)
[2020-12-28 23:52] LABS: Alanine Aminotransferase 26 U/L (13-56); Alkaline Phosphatase 84 U/L (45-117); Aspartate Aminotransferase 24 U/L (15-37); Bilirubin, Total 0.5 mg/dL (0.2-1.0); Total Protein 6.4 g/dL (6.4-8.2)
[2020-12-29] MEDS: ONDANSETRON HCL 4 MG/2 ML VIAL IV PRN ×6 (00:33→23:14)
[2020-12-29] MEDS: MORPHINE SULFATE INJECTION 2 MG/2 ML SYRG IV PRN ×3 (00:33→09:30)
[2020-12-29 03:15] LABS: Urine Amorphous Crystal FEW /hpf (None Seen); Urine Bacteria NONE SEEN /hpf (None Seen); Urine Blood Negative /uL (Negative); Urine Specific Gravity 1.022 (1.001-1.035); Urine WBC <1 /hpf (0 - 5)
[2020-12-29 08:00] LABS: Basophils # (auto) 0.1 10 ^3/uL (0-0.2); Basophils % (auto) 0.9 % (0.0-2.0); Eosinophils # (auto) 0.4 10 ^3/uL (0-0.8); Eosinophils % (auto) 5.5 % (0.0-7.0); Hematocrit 40.5 % (36.0-46.0); Hemoglobin 13.9 g/dL (12.2-16.2); Lymphocytes # (auto) 2.3 10 ^3/uL (0.4-5.4); Lymphocytes % (auto) 33.8 % (10.0-50.0); Mean Corpuscular Hemoglobin 31.4 pg (28.0-32.0); Mean Corpuscular Hgb Conc. 34.3 g/dL (32.0-36.0); Mean Corpuscular Volume 91.8 fL (80.0-100.0); Monocytes # (auto) 0.9 10 ^3/uL (0-1.3); Monocytes % (auto) 13.8 % (0.0-12.0); Neutrophils # (auto) 3.1 10 ^3/uL (1.6-8.6); Nucleated Red Blood Cells % 0.2 %; Red Blood Cells 4.42 10^6/uL (4.0-5.20); Red Cell Distribution Width 13.3 % (11.8-14.3); White Blood Cell 6.8 10^3/uL (4.4-10.8)
[2020-12-29 08:19] LABS: Potassium 4.4 mmol/L (3.5-5.1)
[2020-12-29 08:26] LABS: Albumin 3.1 g/dL (3.4-5.0); BUN/Creatinine Ratio 29.3; Bilirubin, Total 0.7 mg/dL (0.2-1.0); Calcium 8.6 mg/dL (8.5-10.1); Total Protein 6.2 g/dL (6.4-8.2)
[2020-12-29] MEDS ORDERED: OMNIPAQUE ORAL SOLN 500ml 12mg/ml PO ONE (09:11)
[2020-12-29] MEDS ORDERED: IOHEXOL 300 MG/ML 100ML BOTTLE IJ ONE (09:21)
[2020-12-29] MEDS: PANTOPRAZOLE 40 MG TAB PO SCH ×2 (11:11→21:15)
[2020-12-29] MEDS: SUCRALFATE 1 GM/10 ML ORAL SUSP PO SCH ×3 (11:40→21:15)
[2020-12-29] MEDS ORDERED: PREGABALIN 25 MG CAP PO PRN (12:15)
[2020-12-29] MEDS: MORPHINE SULFATE 4 MG/ML SYR/VIAL IV PRN ×3 (13:53→23:14)
[2020-12-29 22:00] VITALS: BP 143/61
[2020-12-29] MEDS: ZOLPIDEM TARTRATE 5 MG TAB PO SCH (23:13)
[2020-12-30 01:06] VITALS: BP 143/61
[2020-12-30] MEDS ORDERED: LACT1CAP14 PO (03:13)
[2020-12-30] MEDS ORDERED: CRAN425C2 PO (03:13)
[2020-12-30] MEDS ORDERED: ATOR20TA PO (03:13)
[2020-12-30] MEDS ORDERED: MORP15TA PO (03:13)
[2020-12-30] MEDS ORDERED: ASCO500T11 PO (03:13)
[2020-12-30] MEDS ORDERED: ACET-1156 PO (03:13)
[2020-12-30] MEDS ORDERED: BISA10SU45 RE (03:13)
[2020-12-30] MEDS ORDERED: MAGNSUS48 PO (03:13)
[2020-12-30] MEDS ORDERED: ALBUAER3 IN (03:13)
[2020-12-30] MEDS ORDERED: ISOS1TAB28 PO (03:13)
[2020-12-30] MEDS ORDERED: ASPI-498 PO (03:13)
[2020-12-30] MEDS ORDERED: PANT40TA2 PO (03:13)
[2020-12-30] MEDS ORDERED: ZOLP10TA PO (03:16)
[2020-12-30] MEDS: MORPHINE SULFATE 4 MG/ML SYR/VIAL IV PRN ×4 (04:50→22:37)
[2020-12-30] MEDS: ONDANSETRON HCL 4 MG/2 ML VIAL IV PRN ×3 (04:51→22:37)
[2020-12-30 05:00] VITALS: BP 128/67
[2020-12-30] MEDS: SUCRALFATE 1 GM/10 ML ORAL SUSP PO SCH ×4 (06:07→21:10)
[2020-12-30 07:42] LABS: Basophils # (auto) 0.1 10 ^3/uL (0-0.2); Basophils % (auto) 0.9 % (0.0-2.0); Eosinophils # (auto) 0.3 10 ^3/uL (0-0.8); Eosinophils % (auto) 4.4 % (0.0-7.0); Hematocrit 40.4 % (36.0-46.0); Hemoglobin 13.9 g/dL (12.2-16.2); Lymphocytes # (auto) 1.7 10 ^3/uL (0.4-5.4); Lymphocytes % (auto) 27.4 % (10.0-50.0); Mean Corpuscular Hemoglobin 30.9 pg (28.0-32.0); Mean Corpuscular Hgb Conc. 34.4 g/dL (32.0-36.0); Mean Corpuscular Volume 90.1 fL (80.0-100.0); Monocytes # (auto) 0.8 10 ^3/uL (0-1.3); Monocytes % (auto) 12.8 % (0.0-12.0); Neutrophils # (auto) 3.4 10 ^3/uL (1.6-8.6); Neutrophils % (auto) 54.5 % (37.0-80.0); Nucleated Red Blood Cells % 0.1 %; Red Blood Cells 4.49 10^6/uL (4.0-5.20); Red Cell Distribution Width 13.5 % (11.8-14.3); White Blood Cell 6.2 10^3/uL (4.4-10.8)
[2020-12-30 07:58] LABS: Albumin 3.1 g/dL (3.4-5.0); Calcium 8.8 mg/dL (8.5-10.1)
[2020-12-30 08:02] LABS: BUN/Creatinine Ratio 18.8; Total Protein 6.1 g/dL (6.4-8.2)
[2020-12-30 09:00] VITALS: BP 124/69
[2020-12-30] MEDS: DOCUSATE SOD 100 MG CAP PO SCH (09:44)
[2020-12-30] MEDS: FLUoxetine HCL 20 MG CAP PO SCH (09:44)
[2020-12-30] MEDS: PANTOPRAZOLE 40 MG TAB PO SCH ×2 (09:45→21:17)
[2020-12-30 13:11] VITALS: BP 155/76
[2020-12-30] MEDS: HYOSCYAMINE SULF 0.125 MG ODT TAB PO PRN (13:50)
[2020-12-30] MEDS: METOCLOPRAMIDE HCL 5MG/ml INJ 2ml VIAL IV SCH ×2 (14:35→21:10)
[2020-12-30 17:00] VITALS: BP 131/67
[2020-12-30] MEDS: ZOLPIDEM TARTRATE 5 MG TAB PO SCH (21:10)
[2020-12-30 22:00] VITALS: BP 142/64
[2020-12-31] MEDS: ONDANSETRON HCL 4 MG/2 ML VIAL IV PRN ×3 (03:07→20:51)
[2020-12-31] MEDS: MORPHINE SULFATE 4 MG/ML SYR/VIAL IV PRN ×4 (03:07→20:50)
[2020-12-31 05:00] VITALS: BP 139/70
[2020-12-31] MEDS: METOCLOPRAMIDE HCL 5MG/ml INJ 2ml VIAL IV SCH ×3 (05:58→22:34)
[2020-12-31] MEDS: SUCRALFATE 1 GM/10 ML ORAL SUSP PO SCH ×4 (07:00→22:35)
[2020-12-31 08:12] LABS: Basophils # (auto) 0.1 10 ^3/uL (0-0.2); Basophils % (auto) 1.3 % (0.0-2.0); Eosinophils # (auto) 0.3 10 ^3/uL (0-0.8); Eosinophils % (auto) 4.5 % (0.0-7.0); Hematocrit 40.8 % (36.0-46.0); Hemoglobin 14.1 g/dL (12.2-16.2); Lymphocytes # (auto) 2.1 10 ^3/uL (0.4-5.4); Lymphocytes % (auto) 30.1 % (10.0-50.0); Mean Corpuscular Hgb Conc. 34.5 g/dL (32.0-36.0); Mean Corpuscular Volume 89.8 fL (80.0-100.0); Monocytes # (auto) 0.9 10 ^3/uL (0-1.3); Monocytes % (auto) 13.9 % (0.0-12.0); Neutrophils # (auto) 3.4 10 ^3/uL (1.6-8.6); Neutrophils % (auto) 50.2 % (37.0-80.0); Nucleated Red Blood Cells % 0.2 %; Red Blood Cells 4.54 10^6/uL (4.0-5.20); Red Cell Distribution Width 13.3 % (11.8-14.3); White Blood Cell 6.8 10^3/uL (4.4-10.8)
[2020-12-31 08:29] LABS: Potassium 3.8 mmol/L (3.5-5.1)
[2020-12-31 08:36] LABS: Albumin 3.2 g/dL (3.4-5.0); BUN/Creatinine Ratio 18.9; Bilirubin, Total 0.9 mg/dL (0.2-1.0); Calcium 8.6 mg/dL (8.5-10.1); Total Protein 6.4 g/dL (6.4-8.2)
[2020-12-31] MEDS: PANTOPRAZOLE 40 MG TAB PO SCH ×2 (08:51→22:35)
[2020-12-31] MEDS: DOCUSATE SOD 100 MG CAP PO SCH (08:51)
[2020-12-31] MEDS: FLUoxetine HCL 20 MG CAP PO SCH (08:52)
[2020-12-31 09:00] VITALS: BP 139/63
[2020-12-31 13:00] VITALS: BP 143/69
[2020-12-31 17:00] VITALS: BP 138/71
[2020-12-31] MEDS: ZOLPIDEM TARTRATE 5 MG TAB PO SCH (22:35)
[2021-01-01] MEDS: MORPHINE SULFATE 4 MG/ML SYR/VIAL IV PRN ×4 (03:57→18:32)
[2021-01-01 05:00] VITALS: BP 121/46
[2021-01-01] MEDS: SUCRALFATE 1 GM/10 ML ORAL SUSP PO SCH ×4 (06:50→21:54)
[2021-01-01] MEDS: METOCLOPRAMIDE HCL 5MG/ml INJ 2ml VIAL IV SCH ×3 (06:50→21:54)
[2021-01-01 07:36] LABS: Basophils # (auto) 0.1 10 ^3/uL (0-0.2); Basophils % (auto) 1.2 % (0.0-2.0); Eosinophils # (auto) 0.3 10 ^3/uL (0-0.8); Eosinophils % (auto) 4.3 % (0.0-7.0); Hematocrit 41.3 % (36.0-46.0); Hemoglobin 14.1 g/dL (12.2-16.2); Lymphocytes # (auto) 1.9 10 ^3/uL (0.4-5.4); Lymphocytes % (auto) 31.4 % (10.0-50.0); Mean Corpuscular Hemoglobin 30.9 pg (28.0-32.0); Mean Corpuscular Hgb Conc. 34.3 g/dL (32.0-36.0); Mean Corpuscular Volume 90.3 fL (80.0-100.0); Monocytes # (auto) 0.8 10 ^3/uL (0-1.3); Monocytes % (auto) 13.7 % (0.0-12.0); Neutrophils % (auto) 49.4 % (37.0-80.0); Nucleated Red Blood Cells % 0.1 %; Red Blood Cells 4.57 10^6/uL (4.0-5.20); Red Cell Distribution Width 13.5 % (11.8-14.3); White Blood Cell 6.1 10^3/uL (4.4-10.8)
[2021-01-01 07:47] LABS: Potassium 3.4 mmol/L (3.5-5.1)
[2021-01-01 07:59] LABS: Albumin 3.3 g/dL (3.4-5.0); BUN/Creatinine Ratio 18.3; Bilirubin, Total 0.8 mg/dL (0.2-1.0); Total Protein 6.3 g/dL (6.4-8.2)
[2021-01-01 09:00] VITALS: BP 137/62
[2021-01-01] MEDS: PANTOPRAZOLE 40 MG TAB PO SCH ×2 (09:28→21:54)
[2021-01-01] MEDS: DOCUSATE SOD 100 MG CAP PO SCH (09:28)
[2021-01-01] MEDS: FLUoxetine HCL 20 MG CAP PO SCH (09:29)
[2021-01-01] MEDS: ONDANSETRON HCL 4 MG/2 ML VIAL IV PRN ×2 (09:30→18:32)
[2021-01-01] MEDS ORDERED: LACTULOSE 20Gm/30ML SOLN PO PRN (09:45)
[2021-01-01] MEDS: HYOSCYAMINE SULF 0.125 MG ODT TAB PO PRN ×2 (10:01→17:00)
[2021-01-01 13:00] VITALS: BP 135/65
[2021-01-01 17:00] VITALS: BP 150/82
[2021-01-01] MEDS: ZOLPIDEM TARTRATE 5 MG TAB PO SCH (21:54)
[2021-01-01 22:00] VITALS: BP 128/77
[2021-01-02] MEDS: MORPHINE SULFATE 4 MG/ML SYR/VIAL IV PRN ×3 (00:05→15:51)
[2021-01-02 05:00] VITALS: BP 143/70
[2021-01-02] MEDS: METOCLOPRAMIDE HCL 5MG/ml INJ 2ml VIAL IV SCH ×2 (06:52→15:36)
[2021-01-02] MEDS: SUCRALFATE 1 GM/10 ML ORAL SUSP PO SCH ×2 (06:52→12:04)
[2021-01-02 09:00] VITALS: BP 139/68
[2021-01-02] MEDS: FLUoxetine HCL 20 MG CAP PO SCH (09:59)
[2021-01-02] MEDS: PANTOPRAZOLE 40 MG TAB PO SCH (09:59)
[2021-01-02] MEDS: DOCUSATE SOD 100 MG CAP PO SCH (10:00)
[2021-01-02] MEDS: ONDANSETRON HCL 4 MG/2 ML VIAL IV PRN ×2 (10:03→15:52)
[2021-01-02 12:55] VITALS: BP 110/61
[2021-01-02 17:00] VITALS: BP 124/71
== END 2021-01-02 17:50 | DRG 392 ==
LOC: EDBD 21:49 → ER 21:58 → TELE 22:28 → TELE-WESTW 12-29 20:34
PROVIDERS: ADMIT Internal Medicine; ATTEND Internal Medicine
DX: K59.00 Constipation, unspecified (principal); I50.22 Chronic systolic (congestive) heart failure; K21.9 Gastro-esophageal reflux disease without esophagitis; K29.70 Gastritis, unspecified, without bleeding; I25.5 Ischemic cardiomyopathy; E78.5 Hyperlipidemia, unspecified; J44.9 Chronic obstructive pulmonary disease, unspecified; Z83.3 Family history of diabetes mellitus; F32.9 Major depressive disorder, single episode, unspecified; F41.9 Anxiety disorder, unspecified; G89.29 Other chronic pain; Z20.822 Contact with and (suspected) exposure to COVID-19; I11.0 Hypertensive heart disease with heart failure; I25.10 Atherosclerotic heart disease of native coronary artery without angina pectoris; Z79.899 Other long term (current) drug therapy; Z82.49 Family history of ischemic heart disease and other diseases of the circulatory system; Z87.442 Personal history of urinary calculi; Z90.710 Acquired absence of both cervix and uterus; Z95.1 Presence of aortocoronary bypass graft; Z95.810 Presence of automatic (implantable) cardiac defibrillator; Z99.3 Dependence on wheelchair; Z88.5 Allergy status to narcotic agent; Z90.49 Acquired absence of other specified parts of digestive tract; Z79.891 Long term (current) use of opiate analgesic
CPT/HCPCS: 36415; 71045; 74177; 80053; 81001; 82150; 83605; 83690; 83735; 83880; 84484; 85025; 85610; 85730; 87040; 87081; 87426; 93005; 93306; 96374; 96375; 96376; 97163; G0378; J2405

== ENCOUNTER 2021-01-03 22:44 | Emergency (ER) | payer MEDICARE, MEDICAID ==
[~2021-01-03] VITALS: Ht 162.6 cm; Wt 80.7 kg
[~2021-01-03 22:44] MED LIST changes: +ACET-1156 PO; +ALBUAER3 IN; +ASCO500T11 PO; +ASPI-498 PO; +ATOR20TA PO; +BISA10SU45 RE; +CRAN425C2 PO; -FAMO40TA7 PO; +ISOS1TAB28 PO; +LACT1CAP14 PO; +MAGNSUS48 PO; +MORP15TA PO; +PANT40TA2 PO; +ZOLP10TA PO; -ZOLP10TA6 PO
[2021-01-04 03:11] LABS: Alanine Aminotransferase 24 U/L (13-56); Albumin 4.4 g/dL (3.4-5.0); Anion Gap 9 (5-15); Aspartate Aminotransferase 22 U/L (15-37); BUN/Creatinine Ratio 11.6; Blood Urea Nitrogen 10 mg/dL (7-18); Calcium 9.3 mg/dL (8.5-10.1); Carbon Dioxide 27 mmol/L (21-32); Chloride 105 mmol/L (98-107); GFR African American 83 mL/min; GFR Non-African American 68 mL/min; Glucose 89 mg/dL (74-106); Lipase 51 U/L (73-393); Magnesium 2.2 mg/dL (1.6-2.6); Potassium 3.3 mmol/L (3.5-5.1); Sodium 141 mmol/L (136-145)
[2021-01-04 03:12] LABS: Red Blood Cells 5.16 10^6/uL (4.0-5.20); Red Cell Distribution Width 13.5 % (11.8-14.3)
[2021-01-04 03:17] LABS: Alkaline Phosphatase 80 U/L (45-117); Bilirubin, Total 0.9 mg/dL (0.2-1.0); Total Protein 7.7 g/dL (6.4-8.2)
[2021-01-04 03:19] LABS: Hemoglobin 16.2 g/dL (12.2-16.2); Mean Corpuscular Hemoglobin 31.3 pg (28.0-32.0); Mean Corpuscular Hgb Conc. 35.9 g/dL (32.0-36.0); Mean Corpuscular Volume 87.3 fL (80.0-100.0); White Blood Cell 11.5 10^3/uL (4.4-10.8)
[2021-01-04 03:24] LABS: Basophils % (manual) 0 (0.0-2.0); Blast Cells 0; Eosinophils % (manual) 0 (0-7); Metamyelocytes % 0; Myelocytes % 0; Promyelocytes % 0; Reactive Lymphocytes 0
[2021-01-04] MEDS ORDERED: IOHEXOL 300 MG/ML 100ML BOTTLE IJ ONE (03:49)
[2021-01-04 04:30] LABS: Band Neutrophils % (manual) 15; Lymphocytes % (manual) 38 (10.0-50.0); Monocytes % (manual) 6 (0-12)
[2021-01-04] MEDS ORDERED: fentaNYL CITRATE 100 MCG/2 ML VL IV ONE (05:15)
[2021-01-04] MEDS ORDERED: SODIUM CHLORIDE 0.9% 1,000 ML IV ONE (07:00)
[2021-01-04] MEDS ORDERED: POTASSIUM EFFERVESENT TAB 25 MEQ PO ONE (07:45)
[2021-01-04] MEDS ORDERED: FUROSEMIDE 20 MG/2 ML VIAL IV ONE (08:30)
[2021-01-04 08:46] LABS: Urine WBC None Seen /hpf (0 - 5)
[2021-01-04 09:30] LABS: Urine Bacteria NONE SEEN /hpf (None Seen); Urine Blood Negative /uL (Negative); Urine Mucus FEW (None Seen)
[2021-01-04] MEDS ORDERED: MORPHINE SULF INJ 2 MG/ML SYRINGE 1ML IV ONE (09:30)
[2021-01-04] MEDS ORDERED: ONDANSETRON HCL 4 MG/2 ML VIAL IV ONE (09:30)
[2021-01-04] MEDS ORDERED: OXYCODONE W/ ACETAMINOPHEN 5/325MG TABLET PO ONE (18:45)
[2021-01-04 20:19] VITALS: BP 139/87
== END 2021-01-04 20:30 | disposition still patient (30) ==
LOC: ER 22:44 → EDBD 22:44 → EDUNIT# 22:44 → ER 01-04 20:30
DX: R10.13 Epigastric pain (principal); I11.0 Hypertensive heart disease with heart failure; I50.9 Heart failure, unspecified; J44.9 Chronic obstructive pulmonary disease, unspecified; I25.10 Atherosclerotic heart disease of native coronary artery without angina pectoris; I25.2 Old myocardial infarction; K21.9 Gastro-esophageal reflux disease without esophagitis; E78.5 Hyperlipidemia, unspecified; Z95.1 Presence of aortocoronary bypass graft; Z90.49 Acquired absence of other specified parts of digestive tract; Z90.710 Acquired absence of both cervix and uterus; Z95.0 Presence of cardiac pacemaker; Z90.89 Acquired absence of other organs; Z79.899 Other long term (current) drug therapy; Z79.82 Long term (current) use of aspirin; Z88.5 Allergy status to narcotic agent
CPT/HCPCS: 36415; 71045; 74177; 80053; 81001; 83690; 83735; 83880; 84443; 84484; 85007; 85027; 93005; 96361; 96374; 96375; 99285; J1940; J2270; J2405; J3010; J7030; Q9967

== ENCOUNTER 2021-02-16 08:46 | Inpatient (IN) | payer MEDICARE, MEDICAID ==
[~2021-02-16] VITALS: Ht 162.6 cm; Wt 159.0 kg
[2021-02-16 09:38] LABS: Basophils # (auto) 0.1 10 ^3/uL (0-0.2); Basophils % (auto) 0.4 % (0.0-2.0); Eosinophils # (auto) 0.4 10 ^3/uL (0-0.8); Eosinophils % (auto) 2.8 % (0.0-7.0); Hematocrit 41.3 % (36.0-46.0); Hemoglobin 13.1 g/dL (12.2-16.2); Lymphocytes # (auto) 1.3 10 ^3/uL (0.4-5.4); Lymphocytes % (auto) 10.1 % (10.0-50.0); Mean Corpuscular Hemoglobin 29.2 pg (28.0-32.0); Mean Corpuscular Hgb Conc. 31.8 g/dL (32.0-36.0); Mean Corpuscular Volume 91.6 fL (80.0-100.0); Monocytes # (auto) 0.7 10 ^3/uL (0-1.3); Monocytes % (auto) 5.6 % (0.0-12.0); Neutrophils # (auto) 10.3 10 ^3/uL (1.6-8.6); Neutrophils % (auto) 81.1 % (37.0-80.0); Nucleated Red Blood Cells % 0.1 %; Red Blood Cells 4.51 10^6/uL (4.0-5.20); Red Cell Distribution Width 14.8 % (11.8-14.3); White Blood Cell 12.7 10^3/uL (4.4-10.8)
[2021-02-16] MEDS ORDERED: ONDANSETRON HCL 4 MG/2 ML VIAL IV ONE (09:45)
[2021-02-16] MEDS ORDERED: MORPHINE SULFATE INJECTION 2 MG/ML SYRG IV ONE (09:45)
[2021-02-16 10:03] LABS: Calcium 8.7 mg/dL (8.5-10.1)
[2021-02-16 10:09] LABS: Bilirubin, Total 0.6 mg/dL (0.2-1.0); Total Protein 5.9 g/dL (6.4-8.2)
[2021-02-16 11:55] LABS: Urine Bacteria FEW /hpf (None Seen); Urine Blood Negative /uL (Negative); Urine Specific Gravity 1.016 (1.001-1.035); Urine WBC 3 /hpf (0 - 5)
[2021-02-16] MEDS ORDERED: NITROGLYCERIN 0.4 MG SL TAB SL PRN (13:45)
[2021-02-16] MEDS ORDERED: MORPHINE SULFATE INJECTION 2 MG/ML SYRG IV PRN (13:45)
[2021-02-16 15:00] LABS: Albumin 2.9 g/dL (3.4-5.0); BUN/Creatinine Ratio 23.8; Bilirubin, Total 0.6 mg/dL (0.2-1.0); Calcium 8.7 mg/dL (8.5-10.1); Total Protein 6.1 g/dL (6.4-8.2)
[2021-02-16] MEDS ORDERED: SODIUM CHLORIDE 0.9% 500 ML IV ONE (17:30)
[2021-02-16] MEDS ORDERED: ALBUTEROL SULF HFA 90MCG INH 200DOSE IN SCH (18:00)
[2021-02-16] MEDS ORDERED: HYDROcodone-ACET 5/325MG TAB PO PRN (18:00)
[2021-02-16] MEDS: cefTRIAXone 1GM/50ML D5W 50 ML IV SCH (20:04)
[2021-02-16] MEDS: MORPHINE SULFATE 4 MG/ML SYR/VIAL IV PRN (20:04)
[2021-02-16] MEDS ORDERED: IOHEXOL 300 MG/ML 100ML BOTTLE IJ ONE (20:30)
[2021-02-16 22:00] VITALS: BP 125/64
[2021-02-16] MEDS ORDERED: ATORVASTATIN 20 MG TAB PO SCH (22:00)
[2021-02-16 23:40] VITALS: BP 125/64
[2021-02-17] MEDS: MORPHINE SULFATE 4 MG/ML SYR/VIAL IV PRN ×5 (00:42→22:42)
[2021-02-17] MEDS: ONDANSETRON HCL 4 MG/2 ML VIAL IV PRN ×5 (00:42→22:42)
[2021-02-17 05:00] VITALS: BP 110/60
[2021-02-17 06:39] LABS: Potassium 3.8 mmol/L (3.5-5.1)
[2021-02-17 06:49] LABS: Cholesterol 99 mg/dL (< 200); HDL Cholesterol 46 mg/dL (40-59); LDL Cholesterol 50 mg/dL (< 100); Triglycerides 60 mg/dL (< 150)
[2021-02-17 06:57] LABS: Basophils # (auto) 0 10 ^3/uL (0-0.2); Basophils % (auto) 0.3 % (0.0-2.0); Eosinophils # (auto) 0.5 10 ^3/uL (0-0.8); Eosinophils % (auto) 6.6 % (0.0-7.0); Hematocrit 36.9 % (36.0-46.0); Hemoglobin 12.5 g/dL (12.2-16.2); Lymphocytes # (auto) 1.5 10 ^3/uL (0.4-5.4); Lymphocytes % (auto) 19.5 % (10.0-50.0); Mean Corpuscular Hemoglobin 30.1 pg (28.0-32.0); Mean Corpuscular Volume 88.6 fL (80.0-100.0); Monocytes # (auto) 0.3 10 ^3/uL (0-1.3); Monocytes % (auto) 4.1 % (0.0-12.0); Neutrophils # (auto) 5.2 10 ^3/uL (1.6-8.6); Neutrophils % (auto) 69.5 % (37.0-80.0); Red Blood Cells 4.17 10^6/uL (4.0-5.20); Red Cell Distribution Width 14.4 % (11.8-14.3); White Blood Cell 7.5 10^3/uL (4.4-10.8)
[2021-02-17 07:44] LABS: Albumin 2.4 g/dL (3.4-5.0); BUN/Creatinine Ratio 22.2; Bilirubin, Total 0.9 mg/dL (0.2-1.0); Calcium 8.5 mg/dL (8.5-10.1); Total Protein 5.3 g/dL (6.4-8.2)
[2021-02-17 09:00] VITALS: BP 102/53
[2021-02-17] MEDS: cefTRIAXone 1GM/50ML D5W 50 ML IV SCH (09:00)
[2021-02-17] MEDS: ISOSORBIDE MONONITRATE ER 60 MG TAB PO SCH (10:00)
[2021-02-17] MEDS: ASPirin 81 mg TAB PO SCH (10:00)
[2021-02-17] MEDS: CARVEDILOL 3.125 MG TAB PO SCH ×2 (10:00→21:16)
[2021-02-17] MEDS: PANTOPRAZOLE 40 MG/10 ML VIAL INJ IV SCH (10:00)
[2021-02-17] MEDS: LISINOPRIL 5 MG TAB PO SCH (10:00)
[2021-02-17] MEDS: LACTULOSE 20Gm/30ML SOLN PO PRN ×2 (12:29→21:17)
[2021-02-17 13:00] VITALS: BP 119/52
[2021-02-17 16:49] VITALS: BP 116/58
[2021-02-17] MEDS: ATORVASTATIN 20 MG TAB PO SCH (21:17)
[2021-02-17 22:00] VITALS: BP 122/78
[2021-02-18] MEDS: MORPHINE SULFATE 4 MG/ML SYR/VIAL IV PRN ×4 (02:56→22:50)
[2021-02-18] MEDS: ONDANSETRON HCL 4 MG/2 ML VIAL IV PRN ×4 (02:57→22:50)
[2021-02-18 05:00] VITALS: BP 142/70
[2021-02-18 05:54] LABS: Basophils # (auto) 0 10 ^3/uL (0-0.2); Basophils % (auto) 0.5 % (0.0-2.0); Eosinophils # (auto) 0.6 10 ^3/uL (0-0.8); Eosinophils % (auto) 9.7 % (0.0-7.0); Hematocrit 37.1 % (36.0-46.0); Hemoglobin 12.7 g/dL (12.2-16.2); Lymphocytes # (auto) 1.4 10 ^3/uL (0.4-5.4); Lymphocytes % (auto) 21.8 % (10.0-50.0); Mean Corpuscular Hemoglobin 30.1 pg (28.0-32.0); Mean Corpuscular Hgb Conc. 34.2 g/dL (32.0-36.0); Mean Corpuscular Volume 87.9 fL (80.0-100.0); Monocytes # (auto) 0.6 10 ^3/uL (0-1.3); Monocytes % (auto) 9.9 % (0.0-12.0); Neutrophils # (auto) 3.6 10 ^3/uL (1.6-8.6); Neutrophils % (auto) 58.1 % (37.0-80.0); Nucleated Red Blood Cells % 0.1 %; Red Blood Cells 4.22 10^6/uL (4.0-5.20); Red Cell Distribution Width 14.2 % (11.8-14.3); White Blood Cell 6.2 10^3/uL (4.4-10.8)
[2021-02-18 06:07] LABS: Albumin 2.4 g/dL (3.4-5.0); Calcium 8.4 mg/dL (8.5-10.1); Potassium 3.9 mmol/L (3.5-5.1)
[2021-02-18 06:10] LABS: BUN/Creatinine Ratio 19.4; Bilirubin, Total 0.7 mg/dL (0.2-1.0); Total Protein 5.3 g/dL (6.4-8.2)
[2021-02-18 08:43] VITALS: BP 122/63
[2021-02-18] MEDS: cefTRIAXone 1GM/50ML D5W 50 ML IV SCH (09:00)
[2021-02-18] MEDS: ISOSORBIDE MONONITRATE ER 60 MG TAB PO SCH (10:00)
[2021-02-18] MEDS: LISINOPRIL 5 MG TAB PO SCH (10:00)
[2021-02-18] MEDS: PANTOPRAZOLE 40 MG/10 ML VIAL INJ IV SCH (10:00)
[2021-02-18] MEDS: ASPirin 81 mg TAB PO SCH (10:00)
[2021-02-18] MEDS: CARVEDILOL 3.125 MG TAB PO SCH ×2 (10:00→22:00)
[2021-02-18] MEDS: LACTULOSE 20Gm/30ML SOLN PO PRN ×2 (12:30→18:30)
[2021-02-18 12:56] VITALS: BP 97/52
[2021-02-18 17:00] VITALS: BP 100/53
[2021-02-18 22:00] VITALS: BP 106/60
[2021-02-18] MEDS: MUPIROCIN 2% OINT 15gm or 22gm TOP SCH (22:27)
[2021-02-18] MEDS: ATORVASTATIN 20 MG TAB PO SCH (22:27)
[2021-02-18] MEDS: HYOSCYAMINE SULF 0.125 MG ODT TAB PO PRN (22:51)
[2021-02-19 05:00] VITALS: BP 113/65
[2021-02-19] MEDS: MORPHINE SULFATE 4 MG/ML SYR/VIAL IV PRN ×4 (05:01→20:21)
[2021-02-19] MEDS: ONDANSETRON HCL 4 MG/2 ML VIAL IV PRN ×4 (05:02→20:21)
[2021-02-19 05:12] LABS: Basophils # (auto) 0 10 ^3/uL (0-0.2); Basophils % (auto) 0.7 % (0.0-2.0); Eosinophils # (auto) 0.6 10 ^3/uL (0-0.8); Hematocrit 36.8 % (36.0-46.0); Hemoglobin 12.3 g/dL (12.2-16.2); Lymphocytes # (auto) 1.5 10 ^3/uL (0.4-5.4); Lymphocytes % (auto) 28.4 % (10.0-50.0); Mean Corpuscular Hemoglobin 29.8 pg (28.0-32.0); Mean Corpuscular Hgb Conc. 33.4 g/dL (32.0-36.0); Mean Corpuscular Volume 89.2 fL (80.0-100.0); Monocytes # (auto) 0.6 10 ^3/uL (0-1.3); Monocytes % (auto) 11.4 % (0.0-12.0); Neutrophils # (auto) 2.5 10 ^3/uL (1.6-8.6); Neutrophils % (auto) 47.5 % (37.0-80.0); Nucleated Red Blood Cells % 0.1 %; Red Blood Cells 4.12 10^6/uL (4.0-5.20); White Blood Cell 5.3 10^3/uL (4.4-10.8)
[2021-02-19 05:25] LABS: Albumin 2.5 g/dL (3.4-5.0); Calcium 8.7 mg/dL (8.5-10.1); Potassium 3.8 mmol/L (3.5-5.1)
[2021-02-19 05:28] LABS: BUN/Creatinine Ratio 18.8; Bilirubin, Total 0.6 mg/dL (0.2-1.0); Total Protein 5.2 g/dL (6.4-8.2)
[2021-02-19 08:55] VITALS: BP 139/90
[2021-02-19] MEDS: cefTRIAXone 1GM/50ML D5W 50 ML IV SCH ×2 (09:52→10:02)
[2021-02-19] MEDS: PANTOPRAZOLE 40 MG/10 ML VIAL INJ IV SCH (09:52)
[2021-02-19] MEDS: ISOSORBIDE MONONITRATE ER 60 MG TAB PO SCH (09:53)
[2021-02-19] MEDS: CARVEDILOL 3.125 MG TAB PO SCH ×2 (09:53→23:12)
[2021-02-19] MEDS: ASPirin 81 mg TAB PO SCH (09:53)
[2021-02-19] MEDS: LISINOPRIL 5 MG TAB PO SCH (09:54)
[2021-02-19] MEDS: MUPIROCIN 2% OINT 15gm or 22gm TOP SCH ×2 (09:54→23:12)
[2021-02-19 12:22] VITALS: BP_SYST 111; BP_SYST 152; BP_DIAS 55; BP_DIAS 72
[2021-02-19] MEDS: diphenhdrAMINE HCL 50 MG/1 ML VL IV PRN ×2 (16:11→23:14)
[2021-02-19 22:00] VITALS: BP 137/63
[2021-02-19] MEDS: ATORVASTATIN 20 MG TAB PO SCH (23:11)
[2021-02-19] MEDS: TRIAMCINOLONE ACET 0.1% TOPICAL CREAM 15GM TOP SCH (23:12)
[2021-02-20] MEDS: ONDANSETRON HCL 4 MG/2 ML VIAL IV PRN ×4 (00:19→13:14)
[2021-02-20] MEDS: MORPHINE SULFATE 4 MG/ML SYR/VIAL IV PRN ×5 (00:19→21:32)
[2021-02-20 05:00] VITALS: BP 137/72
[2021-02-20 05:58] LABS: Potassium 3.6 mmol/L (3.5-5.1)
[2021-02-20 06:08] LABS: Basophils # (auto) 0.1 10 ^3/uL (0-0.2); Basophils % (auto) 0.9 % (0.0-2.0); Eosinophils # (auto) 0.9 10 ^3/uL (0-0.8); Eosinophils % (auto) 13.4 % (0.0-7.0); Hematocrit 35.6 % (36.0-46.0); Hemoglobin 12.2 g/dL (12.2-16.2); Lymphocytes # (auto) 2.1 10 ^3/uL (0.4-5.4); Lymphocytes % (auto) 31.1 % (10.0-50.0); Mean Corpuscular Hemoglobin 29.9 pg (28.0-32.0); Mean Corpuscular Hgb Conc. 34.2 g/dL (32.0-36.0); Mean Corpuscular Volume 87.3 fL (80.0-100.0); Monocytes # (auto) 0.8 10 ^3/uL (0-1.3); Monocytes % (auto) 12.6 % (0.0-12.0); Neutrophils # (auto) 2.8 10 ^3/uL (1.6-8.6); Nucleated Red Blood Cells % 0.1 %; Red Blood Cells 4.08 10^6/uL (4.0-5.20); White Blood Cell 6.6 10^3/uL (4.4-10.8)
[2021-02-20 06:17] LABS: Albumin 2.6 g/dL (3.4-5.0); BUN/Creatinine Ratio 14.8; Bilirubin, Total 0.6 mg/dL (0.2-1.0); Calcium 8.7 mg/dL (8.5-10.1); Magnesium 2.2 mg/dL (1.6-2.6); Phosphorus 3.2 mg/dL (2.5-4.90); Total Protein 5.5 g/dL (6.4-8.2)
[2021-02-20 08:54] VITALS: BP 137/89
[2021-02-20] MEDS: cefTRIAXone 1GM/50ML D5W 50 ML IV SCH (08:54)
[2021-02-20] MEDS: diphenhdrAMINE HCL 50 MG/1 ML VL IV PRN (08:54)
[2021-02-20] MEDS: PANTOPRAZOLE 40 MG/10 ML VIAL INJ IV SCH (08:55)
[2021-02-20] MEDS: ASPirin 81 mg TAB PO SCH (08:55)
[2021-02-20] MEDS: CARVEDILOL 3.125 MG TAB PO SCH ×2 (08:56→21:30)
[2021-02-20] MEDS: LISINOPRIL 5 MG TAB PO SCH (08:56)
[2021-02-20] MEDS: ISOSORBIDE MONONITRATE ER 60 MG TAB PO SCH (08:57)
[2021-02-20] MEDS: TRIAMCINOLONE ACET 0.1% TOPICAL CREAM 15GM TOP SCH ×2 (08:57→21:31)
[2021-02-20] MEDS: MUPIROCIN 2% OINT 15gm or 22gm TOP SCH ×2 (08:57→21:31)
[2021-02-20 12:41] VITALS: BP 119/65
[2021-02-20] MEDS ORDERED: DOXYCYCLINE 100MG/250ML 250 ML IV SCH (13:00)
[2021-02-20 17:00] VITALS: BP 124/67
[2021-02-20 20:00] VITALS: BP 119/65
[2021-02-20] MEDS: ATORVASTATIN 20 MG TAB PO SCH (21:31)
[2021-02-21] MEDS: MORPHINE SULFATE 4 MG/ML SYR/VIAL IV PRN ×5 (06:20→23:04)
[2021-02-21 06:26] LABS: Basophils # (auto) 0.1 10 ^3/uL (0-0.2); Basophils % (auto) 1.5 % (0.0-2.0); Eosinophils # (auto) 0.8 10 ^3/uL (0-0.8); Eosinophils % (auto) 13.7 % (0.0-7.0); Hematocrit 37.4 % (36.0-46.0); Hemoglobin 13.1 g/dL (12.2-16.2); Lymphocytes # (auto) 1.8 10 ^3/uL (0.4-5.4); Lymphocytes % (auto) 32.2 % (10.0-50.0); Mean Corpuscular Hemoglobin 30.6 pg (28.0-32.0); Mean Corpuscular Volume 87.5 fL (80.0-100.0); Monocytes # (auto) 0.7 10 ^3/uL (0-1.3); Monocytes % (auto) 12.6 % (0.0-12.0); Neutrophils # (auto) 2.3 10 ^3/uL (1.6-8.6); Nucleated Red Blood Cells % 0.1 %; Red Blood Cells 4.27 10^6/uL (4.0-5.20); Red Cell Distribution Width 13.9 % (11.8-14.3); White Blood Cell 5.6 10^3/uL (4.4-10.8)
[2021-02-21 06:39] LABS: Albumin 2.8 g/dL (3.4-5.0); Calcium 8.8 mg/dL (8.5-10.1); Potassium 3.7 mmol/L (3.5-5.1)
[2021-02-21 06:43] LABS: BUN/Creatinine Ratio 13.5; Bilirubin, Total 0.7 mg/dL (0.2-1.0); Total Protein 5.7 g/dL (6.4-8.2)
[2021-02-21] MEDS: ASPirin 81 mg TAB PO SCH (09:53)
[2021-02-21] MEDS: PANTOPRAZOLE 40 MG/10 ML VIAL INJ IV SCH (09:53)
[2021-02-21 09:55] VITALS: BP 136/78
[2021-02-21] MEDS: TRIAMCINOLONE ACET 0.1% TOPICAL CREAM 15GM TOP SCH ×2 (09:55→21:06)
[2021-02-21] MEDS: MUPIROCIN 2% OINT 15gm or 22gm TOP SCH ×2 (09:55→21:06)
[2021-02-21] MEDS: ISOSORBIDE MONONITRATE ER 60 MG TAB PO SCH (09:59)
[2021-02-21] MEDS: CARVEDILOL 3.125 MG TAB PO SCH ×2 (09:59→21:03)
[2021-02-21] MEDS ORDERED: levoFLOXacin 250MG 50 ML IV SCH (10:00)
[2021-02-21] MEDS: LISINOPRIL 5 MG TAB PO SCH (10:00)
[2021-02-21] MEDS: levoFLOXacin 500MG 100 ML IV SCH (10:00)
[2021-02-21] MEDS: ONDANSETRON HCL 4 MG/2 ML VIAL IV PRN ×3 (10:51→23:03)
[2021-02-21 13:00] VITALS: BP 124/72
[2021-02-21] MEDS: diphenhdrAMINE HCL 50 MG/1 ML VL IV PRN ×2 (14:38→21:02)
[2021-02-21] MEDS: HYOSCYAMINE SULF 0.125 MG ODT TAB PO PRN (14:55)
[2021-02-21 17:30] VITALS: BP 114/63
[2021-02-21] MEDS: ATORVASTATIN 20 MG TAB PO SCH (21:03)
[2021-02-21 22:00] VITALS: BP 133/76
[2021-02-22] MEDS: MORPHINE SULFATE 4 MG/ML SYR/VIAL IV PRN ×5 (03:24→23:15)
[2021-02-22] MEDS: ONDANSETRON HCL 4 MG/2 ML VIAL IV PRN ×4 (03:24→23:15)
[2021-02-22 04:50] VITALS: BP 137/72
[2021-02-22] MEDS: diphenhdrAMINE HCL 50 MG/1 ML VL IV PRN ×3 (06:07→16:11)
[2021-02-22 06:23] LABS: Potassium 3.9 mmol/L (3.5-5.1)
[2021-02-22 06:29] LABS: Albumin 2.8 g/dL (3.4-5.0); BUN/Creatinine Ratio 16.7; Bilirubin, Total 0.6 mg/dL (0.2-1.0); Calcium 8.8 mg/dL (8.5-10.1); Total Protein 5.7 g/dL (6.4-8.2)
[2021-02-22 07:09] LABS: Basophils # (auto) 0.1 10 ^3/uL (0-0.2); Hematocrit 37.7 % (36.0-46.0); Hemoglobin 12.7 g/dL (12.2-16.2); Lymphocytes # (auto) 2.1 10 ^3/uL (0.4-5.4); Lymphocytes % (auto) 35.1 % (10.0-50.0); Mean Corpuscular Hemoglobin 29.3 pg (28.0-32.0); Mean Corpuscular Hgb Conc. 33.7 g/dL (32.0-36.0); Monocytes # (auto) 0.7 10 ^3/uL (0-1.3); Monocytes % (auto) 12.4 % (0.0-12.0); Red Blood Cells 4.34 10^6/uL (4.0-5.20); Red Cell Distribution Width 13.8 % (11.8-14.3); White Blood Cell 5.9 10^3/uL (4.4-10.8)
[2021-02-22 07:21] LABS: Eosinophils # (auto) 0.8 10 ^3/uL (0-0.8); Eosinophils % (auto) 14.2 % (0.0-7.0); Neutrophils # (auto) 2.2 10 ^3/uL (1.6-8.6); Neutrophils % (auto) 37.3 % (37.0-80.0)
[2021-02-22 09:00] VITALS: BP 135/67
[2021-02-22] MEDS: PANTOPRAZOLE 40 MG/10 ML VIAL INJ IV SCH (09:33)
[2021-02-22] MEDS: ASPirin 81 mg TAB PO SCH (09:33)
[2021-02-22] MEDS: levoFLOXacin 500MG 100 ML IV SCH (09:33)
[2021-02-22] MEDS: LISINOPRIL 5 MG TAB PO SCH (09:35)
[2021-02-22] MEDS: ISOSORBIDE MONONITRATE ER 60 MG TAB PO SCH (09:35)
[2021-02-22] MEDS: CARVEDILOL 3.125 MG TAB PO SCH ×2 (09:41→21:39)
[2021-02-22] MEDS: MUPIROCIN 2% OINT 15gm or 22gm TOP SCH ×2 (10:00→21:40)
[2021-02-22] MEDS ORDERED: LISINOPRIL 10 MG TAB PO ONE (12:30)
[2021-02-22 13:00] VITALS: BP 115/70
[2021-02-22] MEDS: TRIAMCINOLONE ACET 0.1% TOPICAL CREAM 15GM TOP SCH ×2 (13:27→21:40)
[2021-02-22] MEDS: HYOSCYAMINE SULF 0.125 MG ODT TAB PO PRN (16:11)
[2021-02-22] MEDS: LACTULOSE 20Gm/30ML SOLN PO PRN (16:11)
[2021-02-22 17:19] VITALS: BP 100/50
[2021-02-22] MEDS: ATORVASTATIN 20 MG TAB PO SCH (21:39)
[2021-02-22 22:00] VITALS: BP 125/80
[2021-02-23] MEDS: MORPHINE SULFATE 4 MG/ML SYR/VIAL IV PRN ×4 (04:57→21:33)
[2021-02-23] MEDS: ONDANSETRON HCL 4 MG/2 ML VIAL IV PRN ×4 (04:57→21:33)
[2021-02-23 05:00] VITALS: BP 132/78
[2021-02-23 05:52] LABS: Basophils # (auto) 0.1 10 ^3/uL (0-0.2); Basophils % (auto) 1.1 % (0.0-2.0); Eosinophils % (auto) 13.2 % (0.0-7.0); Hematocrit 37.2 % (36.0-46.0); Lymphocytes # (auto) 2.2 10 ^3/uL (0.4-5.4); Lymphocytes % (auto) 28.8 % (10.0-50.0); Mean Corpuscular Hemoglobin 30.2 pg (28.0-32.0); Mean Corpuscular Volume 86.5 fL (80.0-100.0); Monocytes # (auto) 0.8 10 ^3/uL (0-1.3); Monocytes % (auto) 10.1 % (0.0-12.0); Neutrophils # (auto) 3.6 10 ^3/uL (1.6-8.6); Neutrophils % (auto) 46.8 % (37.0-80.0); Nucleated Red Blood Cells % 0.1 %; Red Cell Distribution Width 14.4 % (11.8-14.3); White Blood Cell 7.8 10^3/uL (4.4-10.8)
[2021-02-23 06:20] LABS: Potassium 4.2 mmol/L (3.5-5.1)
[2021-02-23 06:32] LABS: Albumin 2.9 g/dL (3.4-5.0); BUN/Creatinine Ratio 18.8; Bilirubin, Total 0.5 mg/dL (0.2-1.0); Total Protein 5.7 g/dL (6.4-8.2)
[2021-02-23] MEDS: PANTOPRAZOLE 40 MG/10 ML VIAL INJ IV SCH (08:55)
[2021-02-23] MEDS: diphenhdrAMINE HCL 50 MG/1 ML VL IV PRN ×2 (08:55→19:37)
[2021-02-23] MEDS: ASPirin 81 mg TAB PO SCH (08:56)
[2021-02-23] MEDS: CARVEDILOL 3.125 MG TAB PO SCH ×2 (08:57→21:36)
[2021-02-23] MEDS: ISOSORBIDE MONONITRATE ER 60 MG TAB PO SCH (08:57)
[2021-02-23] MEDS: LISINOPRIL 10 MG TAB PO SCH (08:58)
[2021-02-23 09:00] VITALS: BP 133/71
[2021-02-23] MEDS: levoFLOXacin 500MG 100 ML IV SCH (09:06)
[2021-02-23] MEDS: TRIAMCINOLONE ACET 0.1% TOPICAL CREAM 15GM TOP SCH (09:24)
[2021-02-23] MEDS: MUPIROCIN 2% OINT 15gm or 22gm TOP SCH (09:51)
[2021-02-23 13:00] VITALS: BP 111/68
[2021-02-23 17:00] VITALS: BP 124/69
[2021-02-23] MEDS: ATORVASTATIN 20 MG TAB PO SCH (21:35)
[2021-02-23 22:00] VITALS: BP 131/77
[2021-02-24] MEDS: TRIAMCINOLONE ACET 0.1% TOPICAL CREAM 15GM TOP SCH ×3 (00:14→22:20)
[2021-02-24] MEDS: MUPIROCIN 2% OINT 15gm or 22gm TOP SCH (00:14)
[2021-02-24 05:00] VITALS: BP 134/70
[2021-02-24] MEDS: ONDANSETRON HCL 4 MG/2 ML VIAL IV PRN ×5 (06:05→23:36)
[2021-02-24] MEDS: MORPHINE SULFATE 4 MG/ML SYR/VIAL IV PRN ×5 (06:05→23:36)
[2021-02-24 09:00] VITALS: BP 103/69
[2021-02-24 09:22] LABS: Urine Bacteria NONE SEEN /hpf (None Seen); Urine Blood 1+ /uL (Negative); Urine Specific Gravity 1.018 (1.001-1.035); Urine WBC 2 /hpf (0 - 5)
[2021-02-24] MEDS: PANTOPRAZOLE 40 MG/10 ML VIAL INJ IV SCH (10:22)
[2021-02-24] MEDS: levoFLOXacin 500MG 100 ML IV SCH (10:30)
[2021-02-24] MEDS: ASPirin 81 mg TAB PO SCH (10:36)
[2021-02-24] MEDS: LISINOPRIL 10 MG TAB PO SCH (10:36)
[2021-02-24] MEDS: ISOSORBIDE MONONITRATE ER 60 MG TAB PO SCH (10:36)
[2021-02-24] MEDS: CARVEDILOL 3.125 MG TAB PO SCH ×2 (10:39→21:30)
[2021-02-24] MEDS: LACTULOSE 20Gm/30ML SOLN PO PRN (10:42)
[2021-02-24 13:00] VITALS: BP 132/73
[2021-02-24] MEDS: diphenhdrAMINE HCL 50 MG/1 ML VL IV PRN (13:26)
[2021-02-24 17:00] VITALS: BP 101/63
[2021-02-24 22:00] VITALS: BP 94/48
[2021-02-24] MEDS: ATORVASTATIN 20 MG TAB PO SCH (22:19)
[2021-02-25] MEDS: MORPHINE SULFATE 4 MG/ML SYR/VIAL IV PRN ×4 (05:03→20:12)
[2021-02-25] MEDS: ONDANSETRON HCL 4 MG/2 ML VIAL IV PRN ×4 (05:04→20:12)
[2021-02-25 05:09] VITALS: BP 124/55
[2021-02-25 06:46] LABS: Basophils # (auto) 0.1 10 ^3/uL (0-0.2); Basophils % (auto) 0.8 % (0.0-2.0); Eosinophils # (auto) 0.9 10 ^3/uL (0-0.8); Eosinophils % (auto) 11.4 % (0.0-7.0); Hematocrit 38.5 % (36.0-46.0); Lymphocytes # (auto) 2.3 10 ^3/uL (0.4-5.4); Lymphocytes % (auto) 29.4 % (10.0-50.0); Mean Corpuscular Hemoglobin 29.2 pg (28.0-32.0); Mean Corpuscular Hgb Conc. 33.9 g/dL (32.0-36.0); Mean Corpuscular Volume 86.2 fL (80.0-100.0); Monocytes # (auto) 0.8 10 ^3/uL (0-1.3); Monocytes % (auto) 9.9 % (0.0-12.0); Neutrophils # (auto) 3.7 10 ^3/uL (1.6-8.6); Neutrophils % (auto) 48.5 % (37.0-80.0); Red Blood Cells 4.46 10^6/uL (4.0-5.20); Red Cell Distribution Width 13.9 % (11.8-14.3); White Blood Cell 7.7 10^3/uL (4.4-10.8)
[2021-02-25 07:07] LABS: Albumin 2.8 g/dL (3.4-5.0); Calcium 8.9 mg/dL (8.5-10.1); Magnesium 2.2 mg/dL (1.6-2.6); Potassium 3.9 mmol/L (3.5-5.1)
[2021-02-25 07:09] LABS: Bilirubin, Total 0.6 mg/dL (0.2-1.0); Total Protein 5.8 g/dL (6.4-8.2)
[2021-02-25 09:00] VITALS: BP 113/68
[2021-02-25] MEDS: ASPirin 81 mg TAB PO SCH (09:35)
[2021-02-25] MEDS: ISOSORBIDE MONONITRATE ER 60 MG TAB PO SCH (09:35)
[2021-02-25] MEDS: LISINOPRIL 10 MG TAB PO SCH (09:36)
[2021-02-25] MEDS: CARVEDILOL 3.125 MG TAB PO SCH ×2 (09:38→21:37)
[2021-02-25] MEDS: PANTOPRAZOLE 40 MG/10 ML VIAL INJ IV SCH (09:38)
[2021-02-25] MEDS: levoFLOXacin 500MG 100 ML IV SCH (09:39)
[2021-02-25] MEDS: TRIAMCINOLONE ACET 0.1% TOPICAL CREAM 15GM TOP SCH ×2 (10:21→21:38)
[2021-02-25 12:50] VITALS: BP 127/62
[2021-02-25] MEDS: diphenhdrAMINE HCL 50 MG/1 ML VL IV PRN ×2 (15:44→23:04)
[2021-02-25 17:00] VITALS: BP 100/57
[2021-02-25] MEDS: ATORVASTATIN 20 MG TAB PO SCH (21:38)
[2021-02-25 22:00] VITALS: BP 108/60
[2021-02-26] MEDS: MORPHINE SULFATE 4 MG/ML SYR/VIAL IV PRN ×5 (01:59→20:02)
[2021-02-26] MEDS: ONDANSETRON HCL 4 MG/2 ML VIAL IV PRN ×5 (01:59→20:02)
[2021-02-26 05:00] VITALS: BP 120/66
[2021-02-26] MEDS: levoFLOXacin 500MG 100 ML IV SCH (10:23)
[2021-02-26] MEDS: PANTOPRAZOLE 40 MG/10 ML VIAL INJ IV SCH (10:23)
[2021-02-26] MEDS: ASPirin 81 mg TAB PO SCH (10:24)
[2021-02-26] MEDS: ISOSORBIDE MONONITRATE ER 60 MG TAB PO SCH (10:24)
[2021-02-26] MEDS: CARVEDILOL 3.125 MG TAB PO SCH ×2 (10:24→21:46)
[2021-02-26] MEDS: TRIAMCINOLONE ACET 0.1% TOPICAL CREAM 15GM TOP SCH ×2 (10:25→21:45)
[2021-02-26] MEDS: LISINOPRIL 10 MG TAB PO SCH (10:25)
[2021-02-26 13:00] VITALS: BP 113/64
[2021-02-26] MEDS: ERTAPENEM SOD INJ 1 GM in SODIUM CHL 0.9% 50 ML IV SCH (15:41)
[2021-02-26 17:00] VITALS: BP 107/56
[2021-02-26] MEDS: diphenhdrAMINE HCL 50 MG/1 ML VL IV PRN (17:50)
[2021-02-26] MEDS: ATORVASTATIN 20 MG TAB PO SCH (21:45)
[2021-02-26] MEDS: LACTULOSE 20Gm/30ML SOLN PO PRN (21:45)
[2021-02-26 22:07] VITALS: BP 142/69
[2021-02-27] MEDS: ONDANSETRON HCL 4 MG/2 ML VIAL IV PRN ×4 (00:16→22:52)
[2021-02-27] MEDS: MORPHINE SULFATE 4 MG/ML SYR/VIAL IV PRN ×5 (00:16→22:51)
[2021-02-27 04:43] VITALS: BP 133/68
[2021-02-27] MEDS: diphenhdrAMINE HCL 50 MG/1 ML VL IV PRN (06:05)
[2021-02-27 08:00] VITALS: BP 117/70
[2021-02-27] MEDS: PANTOPRAZOLE 40 MG/10 ML VIAL INJ IV SCH (08:41)
[2021-02-27] MEDS: ASPirin 81 mg TAB PO SCH (08:41)
[2021-02-27] MEDS: ERTAPENEM SOD INJ 1 GM in SODIUM CHL 0.9% 50 ML IV SCH (08:41)
[2021-02-27] MEDS: LISINOPRIL 10 MG TAB PO SCH (09:45)
[2021-02-27] MEDS: ISOSORBIDE MONONITRATE ER 60 MG TAB PO SCH (09:50)
[2021-02-27] MEDS: CARVEDILOL 3.125 MG TAB PO SCH (10:00)
[2021-02-27] MEDS: TRIAMCINOLONE ACET 0.1% TOPICAL CREAM 15GM TOP SCH ×2 (10:30→22:51)
[2021-02-27 12:00] VITALS: BP 86/56
[2021-02-27 17:00] VITALS: BP 137/82
[2021-02-27 22:00] VITALS: BP 124/68
[2021-02-27] MEDS: ATORVASTATIN 20 MG TAB PO SCH (22:52)
[2021-02-28] MEDS: CARVEDILOL 3.125 MG TAB PO SCH ×2 (01:04→11:00)
[2021-02-28] MEDS: ONDANSETRON HCL 4 MG/2 ML VIAL IV PRN ×3 (03:30→14:07)
[2021-02-28] MEDS: MORPHINE SULFATE 4 MG/ML SYR/VIAL IV PRN ×3 (03:30→14:07)
[2021-02-28 05:27] VITALS: BP 117/76
[2021-02-28 09:00] VITALS: BP 139/74
[2021-02-28] MEDS: TRIAMCINOLONE ACET 0.1% TOPICAL CREAM 15GM TOP SCH (10:00)
[2021-02-28] MEDS: LACTULOSE 20Gm/30ML SOLN PO PRN (10:58)
[2021-02-28] MEDS: ASPirin 81 mg TAB PO SCH (10:58)
[2021-02-28] MEDS: HYOSCYAMINE SULF 0.125 MG ODT TAB PO PRN (10:58)
[2021-02-28] MEDS: ISOSORBIDE MONONITRATE ER 60 MG TAB PO SCH (10:59)
[2021-02-28] MEDS: LISINOPRIL 10 MG TAB PO SCH (11:01)
[2021-02-28] MEDS: PANTOPRAZOLE 40 MG/10 ML VIAL INJ IV SCH (11:01)
[2021-02-28] MEDS: ERTAPENEM SOD INJ 1 GM in SODIUM CHL 0.9% 50 ML IV SCH (11:02)
[2021-02-28 12:05] VITALS: BP 139/74
[2021-02-28 13:00] VITALS: BP_SYST 113; BP_SYST 136; BP_DIAS 68; BP_DIAS 70
== END 2021-02-28 16:59 | DRG 205 ==
LOC: EDBD 08:46 → ER 08:46 → TELE 13:37 → TELE-WESTW 23:14
PROVIDERS: ADMIT Internal Medicine; ATTEND Internal Medicine
PROC: 05HB33Z Insertion of Infusion Device into Right Basilic Vein, Percutaneous Approach (ICD-10-PCS; 2021-02-17)
PROC: B54MZZA Ultrasonography of Right Upper Extremity Veins, Guidance (ICD-10-PCS; 2021-02-17)
PROC: 4B02XSZ Measurement of Cardiac Pacemaker, External Approach (ICD-10-PCS; principal; 2021-02-19)
PROC: 05HC33Z Insertion of Infusion Device into Left Basilic Vein, Percutaneous Approach (ICD-10-PCS; 2021-02-27)
PROC: B54NZZA Ultrasonography of Left Upper Extremity Veins, Guidance (ICD-10-PCS; 2021-02-27)
DX: M94.0 Chondrocostal junction syndrome [Tietze] (principal); I50.43 Acute on chronic combined systolic (congestive) and diastolic (congestive) heart failure; N39.0 Urinary tract infection, site not specified; J44.1 Chronic obstructive pulmonary disease with (acute) exacerbation; Z16.12 Extended spectrum beta lactamase (ESBL) resistance; Z20.822 Contact with and (suspected) exposure to COVID-19; K59.00 Constipation, unspecified; I11.0 Hypertensive heart disease with heart failure; I25.10 Atherosclerotic heart disease of native coronary artery without angina pectoris; I25.5 Ischemic cardiomyopathy; K21.9 Gastro-esophageal reflux disease without esophagitis; E78.5 Hyperlipidemia, unspecified; D72.10 Eosinophilia, unspecified; F41.9 Anxiety disorder, unspecified; M10.9 Gout, unspecified; L30.9 Dermatitis, unspecified; M81.0 Age-related osteoporosis without current pathological fracture; Z66 Do not resuscitate; F32.9 Major depressive disorder, single episode, unspecified; T36.95XA Adverse effect of unspecified systemic antibiotic, initial encounter; K57.30 Diverticulosis of large intestine without perforation or abscess without bleeding; Z83.3 Family history of diabetes mellitus; Z83.511 Family history of glaucoma; Z82.49 Family history of ischemic heart disease and other diseases of the circulatory system; Z86.73 Personal history of transient ischemic attack (TIA), and cerebral infarction without residual deficits; Z87.440 Personal history of urinary (tract) infections; Z87.442 Personal history of urinary calculi; Z79.899 Other long term (current) drug therapy; Z87.891 Personal history of nicotine dependence; Z88.5 Allergy status to narcotic agent; Z90.49 Acquired absence of other specified parts of digestive tract; Z90.710 Acquired absence of both cervix and uterus; Z95.1 Presence of aortocoronary bypass graft; Z95.810 Presence of automatic (implantable) cardiac defibrillator; Z99.3 Dependence on wheelchair; Y92.89 Other specified places as the place of occurrence of the external cause; Z88.1 Allergy status to other antibiotic agents
CPT/HCPCS: 36415; 70450; 71045; 73030; 74177; 80053; 80061; 81001; 83690; 83735; 83880; 84100; 84484; 85025; 87040; 87081; 87086; 87088; 87186; 87426; 93005; 93306; 96361; 96365; 96375; 97110; 97116; 97163; 97530; C9113; G0378; J0696; J1335; J1956; J2405

== ENCOUNTER 2021-03-24 15:23 | Inpatient (IN) | payer MEDICARE, MEDICAID ==
[~2021-03-24] VITALS: Ht 162.6 cm; Wt 73.9 kg
[2021-03-24] MEDS ORDERED: methylPREDNISolone SOD SUCC 125 MG/2 ML VL IV ONE (15:45)
[2021-03-24] MEDS ORDERED: MORPHINE SULFATE INJECTION 2 MG/ML SYRG IV ONE ×2 (16:15→18:45)
[2021-03-24] MEDS ORDERED: ONDANSETRON HCL 4 MG/2 ML VIAL IV ONE (16:15)
[2021-03-24 16:37] LABS: Basophils # (auto) 0.1 10 ^3/uL (0-0.2); Basophils % (auto) 1.1 % (0.0-2.0); Eosinophils # (auto) 0.9 10 ^3/uL (0-0.8); Eosinophils % (auto) 12.8 % (0.0-7.0); Hemoglobin 12.9 g/dL (12.2-16.2); Lymphocytes # (auto) 2.6 10 ^3/uL (0.4-5.4); Lymphocytes % (auto) 35.7 % (10.0-50.0); Mean Corpuscular Hemoglobin 29.2 pg (28.0-32.0); Mean Corpuscular Hgb Conc. 33.1 g/dL (32.0-36.0); Mean Corpuscular Volume 88.2 fL (80.0-100.0); Monocytes # (auto) 0.8 10 ^3/uL (0-1.3); Monocytes % (auto) 11.6 % (0.0-12.0); Neutrophils # (auto) 2.8 10 ^3/uL (1.6-8.6); Neutrophils % (auto) 38.8 % (37.0-80.0); Nucleated Red Blood Cells % 0.1 %; Red Blood Cells 4.42 10^6/uL (4.0-5.20); Red Cell Distribution Width 14.6 % (11.8-14.3); White Blood Cell 7.2 10^3/uL (4.4-10.8)
[2021-03-24 16:57] LABS: Albumin 3.1 g/dL (3.4-5.0); BUN/Creatinine Ratio 27.1
[2021-03-24 17:00] LABS: Bilirubin, Total 0.8 mg/dL (0.2-1.0); Total Protein 6.2 g/dL (6.4-8.2)
[2021-03-24] MEDS ORDERED: IOHEXOL 350 MG/ML 100ML IJ ONE (18:54)
[2021-03-24] MEDS ORDERED: MORPHINE SULFATE INJECTION 2 MG/ML SYRG IV PRN (19:00)
[2021-03-24] MEDS ORDERED: HYDROcodone-ACET 5/325MG TAB PO PRN (19:00)
[2021-03-24] MEDS ORDERED: ACETAMINOPHEN 325 MG TAB PO PRN (19:00)
[2021-03-24] MEDS ORDERED: NITROGLYCERIN 0.4 MG SL TAB SL PRN (19:00)
[2021-03-24] MEDS ORDERED: DOCUSATE SOD 100 MG CAP PO PRN (19:00)
[2021-03-24 20:23] VITALS: BP 127/63
[2021-03-24] MEDS: MORPHINE SULFATE INJECTION 2 MG/ML SYRG IV PRN (20:45)
[2021-03-24] MEDS: levoFLOXacin 500MG 100 ML IV SCH (20:53)
[2021-03-24 21:51] LABS: Urine Bacteria NONE SEEN /hpf (None Seen); Urine Blood Negative /uL (Negative); Urine Specific Gravity 1.033 (1.001-1.035); Urine WBC 4 /hpf (0 - 5)
[2021-03-24 22:25] VITALS: BP 129/59
[2021-03-24] MEDS: ENOXAPARIN SOD 40 MG/0.4 ML SYRINGE SC SCH (22:41)
[2021-03-24] MEDS: ASCORBIC ACID 500 MG TAB PO SCH (22:41)
[2021-03-24 22:42] VITALS: BP 129/59
[2021-03-24] MEDS: IPRATROPIUM BROM 0.5 MG/2.5ML INH SOL NEB PRN (22:42)
[2021-03-24] MEDS ORDERED: INFLUENZA QUAD 2021-2022 0.5 ML SYRG IM ONE (23:30)
[2021-03-25] VITALS (7 sets, daily range): BP systolic 94–147; BP diastolic 52–82
[2021-03-25] MEDS: MORPHINE SULFATE INJECTION 2 MG/ML SYRG IV PRN ×3 (00:46→09:19)
[2021-03-25] MEDS: IPRATROPIUM BROM 0.5 MG/2.5ML INH SOL NEB PRN (02:20)
[2021-03-25] MEDS: methylPREDNISolone SOD SUCC 40 MG/ML VL IV SCH ×3 (05:09→22:31)
[2021-03-25 07:15] LABS: Basophils # (auto) 0 10 ^3/uL (0-0.2); Basophils % (auto) 0.2 % (0.0-2.0); Eosinophils # (auto) 0 10 ^3/uL (0-0.8); Eosinophils % (auto) 0.1 % (0.0-7.0); Hematocrit 40.2 % (36.0-46.0); Hemoglobin 13.9 g/dL (12.2-16.2); Lymphocytes % (auto) 17.4 % (10.0-50.0); Mean Corpuscular Hemoglobin 29.8 pg (28.0-32.0); Mean Corpuscular Hgb Conc. 34.5 g/dL (32.0-36.0); Mean Corpuscular Volume 86.4 fL (80.0-100.0); Monocytes # (auto) 0.1 10 ^3/uL (0-1.3); Monocytes % (auto) 1.2 % (0.0-12.0); Neutrophils # (auto) 4.9 10 ^3/uL (1.6-8.6); Neutrophils % (auto) 81.1 % (37.0-80.0); Nucleated Red Blood Cells % 0.1 %; Red Blood Cells 4.66 10^6/uL (4.0-5.20); Red Cell Distribution Width 14.4 % (11.8-14.3)
[2021-03-25 07:38] LABS: Albumin 3.1 g/dL (3.4-5.0); BUN/Creatinine Ratio 25.7; Calcium 9.2 mg/dL (8.5-10.1); Potassium 4.1 mmol/L (3.5-5.1)
[2021-03-25 07:47] LABS: Bilirubin, Total 0.8 mg/dL (0.2-1.0); Total Protein 6.4 g/dL (6.4-8.2)
[2021-03-25] MEDS: MULTIPLE VITAMIN TAB PO SCH (09:14)
[2021-03-25] MEDS: ZINC SULFATE 220mg CAP or TAB PO SCH (09:14)
[2021-03-25] MEDS: ASCORBIC ACID 500 MG TAB PO SCH ×2 (09:15→22:32)
[2021-03-25] MEDS: ONDANSETRON HCL 4 MG/2 ML VIAL IV PRN ×3 (09:20→18:51)
[2021-03-25] MEDS ORDERED: ENOXAPARIN SOD 30 MG/0.3 ML SYRINGE SC SCH (10:00)
[2021-03-25] MEDS ORDERED: HYDROcodone-ACET 10/325MG TAB PO PRN (12:00)
[2021-03-25] MEDS: HYDROmorphone HCL 2 MG/ML VL IV PRN ×2 (13:09→18:50)
[2021-03-25] MEDS ORDERED: FUROSEMIDE 40 MG/4 ML VIAL IV ONE (13:15)
[2021-03-25] MEDS ORDERED: CARISOPRODOL 350 MG TAB PO PRN (13:45)
[2021-03-25] MEDS: ASPirin 81 mg TAB PO SCH (17:00)
[2021-03-25] MEDS: CARVEDILOL 3.125 MG TAB PO SCH (22:00)
[2021-03-25] MEDS: levoFLOXacin 500MG 100 ML IV SCH (22:31)
[2021-03-25] MEDS: ATORVASTATIN 20 MG TAB PO SCH (22:31)
[2021-03-25] MEDS: ENOXAPARIN SOD 40 MG/0.4 ML SYRINGE SC SCH (22:32)
[2021-03-26] MEDS: HYDROmorphone HCL 2 MG/ML VL IV PRN ×5 (02:55→22:00)
[2021-03-26] MEDS: ONDANSETRON HCL 4 MG/2 ML VIAL IV PRN ×5 (02:55→21:59)
[2021-03-26 05:30] VITALS: BP 116/84
[2021-03-26] MEDS: methylPREDNISolone SOD SUCC 40 MG/ML VL IV SCH ×3 (06:26→21:58)
[2021-03-26 08:00] VITALS: BP 130/69
[2021-03-26 09:00] VITALS: BP 130/69
[2021-03-26] MEDS: ASPirin 81 mg TAB PO SCH (09:05)
[2021-03-26] MEDS: ZINC SULFATE 220mg CAP or TAB PO SCH (09:05)
[2021-03-26] MEDS: MULTIPLE VITAMIN TAB PO SCH (09:05)
[2021-03-26] MEDS: ASCORBIC ACID 500 MG TAB PO SCH ×2 (09:05→21:59)
[2021-03-26] MEDS: CARVEDILOL 3.125 MG TAB PO SCH ×2 (09:11→21:59)
[2021-03-26 13:07] VITALS: BP 128/61
[2021-03-26 17:00] VITALS: BP 130/81
[2021-03-26] MEDS: levoFLOXacin 500MG 100 ML IV SCH (20:54)
[2021-03-26] MEDS: ENOXAPARIN SOD 40 MG/0.4 ML SYRINGE SC SCH (21:59)
[2021-03-26] MEDS: ATORVASTATIN 20 MG TAB PO SCH (21:59)
[2021-03-26 22:00] VITALS: BP 135/64
[2021-03-27] MEDS: ONDANSETRON HCL 4 MG/2 ML VIAL IV PRN ×4 (03:30→17:15)
[2021-03-27] MEDS: HYDROmorphone HCL 2 MG/ML VL IV PRN ×5 (03:30→21:34)
[2021-03-27 05:00] VITALS: BP 132/77
[2021-03-27] MEDS: methylPREDNISolone SOD SUCC 40 MG/ML VL IV SCH ×3 (05:22→22:58)
[2021-03-27 08:51] VITALS: BP 124/67
[2021-03-27] MEDS: ASPirin 81 mg TAB PO SCH (09:08)
[2021-03-27] MEDS: ZINC SULFATE 220mg CAP or TAB PO SCH (09:08)
[2021-03-27] MEDS: CARVEDILOL 3.125 MG TAB PO SCH ×2 (09:09→21:35)
[2021-03-27] MEDS: MULTIPLE VITAMIN TAB PO SCH (09:09)
[2021-03-27] MEDS: ASCORBIC ACID 500 MG TAB PO SCH ×2 (09:09→21:35)
[2021-03-27 13:00] VITALS: BP 144/78
[2021-03-27 16:33] VITALS: BP 130/77
[2021-03-27] MEDS: IPRATROPIUM BROM 0.5 MG/2.5ML INH SOL NEB PRN (19:59)
[2021-03-27 20:00] VITALS: BP 128/72
[2021-03-27] MEDS: levoFLOXacin 500MG 100 ML IV SCH (20:39)
[2021-03-27 21:30] VITALS: BP 128/72
[2021-03-27] MEDS: ENOXAPARIN SOD 40 MG/0.4 ML SYRINGE SC SCH (21:34)
[2021-03-27] MEDS: ATORVASTATIN 20 MG TAB PO SCH (21:35)
[2021-03-28] VITALS (7 sets, daily range): BP systolic 105–143; BP diastolic 65–80
[2021-03-28] MEDS: HYDROmorphone HCL 2 MG/ML VL IV PRN ×5 (02:25→19:52)
[2021-03-28] MEDS: ONDANSETRON HCL 4 MG/2 ML VIAL IV PRN ×5 (02:25→19:51)
[2021-03-28] MEDS: methylPREDNISolone SOD SUCC 40 MG/ML VL IV SCH ×3 (05:44→22:12)
[2021-03-28] MEDS: IPRATROPIUM BROM 0.5 MG/2.5ML INH SOL NEB SCH ×3 (06:35→19:20)
[2021-03-28] MEDS: ZINC SULFATE 220mg CAP or TAB PO SCH (10:48)
[2021-03-28] MEDS: ASPirin 81 mg TAB PO SCH (10:48)
[2021-03-28] MEDS: CARVEDILOL 3.125 MG TAB PO SCH ×2 (10:49→22:12)
[2021-03-28] MEDS: MULTIPLE VITAMIN TAB PO SCH (10:50)
[2021-03-28] MEDS: ASCORBIC ACID 500 MG TAB PO SCH ×2 (10:51→22:12)
[2021-03-28] MEDS: levoFLOXacin 500MG 100 ML IV SCH (21:06)
[2021-03-28] MEDS: ATORVASTATIN 20 MG TAB PO SCH (22:12)
[2021-03-28] MEDS: ENOXAPARIN SOD 40 MG/0.4 ML SYRINGE SC SCH (23:43)
[2021-03-29] MEDS: ONDANSETRON HCL 4 MG/2 ML VIAL IV PRN ×5 (00:58→21:41)
[2021-03-29] MEDS: HYDROmorphone HCL 2 MG/ML VL IV PRN ×5 (00:59→21:41)
[2021-03-29] MEDS: IPRATROPIUM BROM 0.5 MG/2.5ML INH SOL NEB SCH ×3 (01:55→18:49)
[2021-03-29 05:00] VITALS: BP 124/71
[2021-03-29] MEDS: methylPREDNISolone SOD SUCC 40 MG/ML VL IV SCH ×2 (05:47→21:39)
[2021-03-29] MEDS: ZINC SULFATE 220mg CAP or TAB PO SCH (08:51)
[2021-03-29] MEDS: MULTIPLE VITAMIN TAB PO SCH (08:51)
[2021-03-29] MEDS: ASCORBIC ACID 500 MG TAB PO SCH ×2 (08:51→21:40)
[2021-03-29] MEDS: ASPirin 81 mg TAB PO SCH (08:52)
[2021-03-29] MEDS: CARVEDILOL 3.125 MG TAB PO SCH ×2 (08:52→21:40)
[2021-03-29 09:00] VITALS: BP 140/90
[2021-03-29 13:00] VITALS: BP 139/70
[2021-03-29 13:41] LABS: INR 1.05 (0.9-1.15); Partial Thromboplastin Time 24.1 sec (23.6-33.0)
[2021-03-29 17:13] VITALS: BP 114/66
[2021-03-29 20:00] VITALS: BP 117/66
[2021-03-29] MEDS: levoFLOXacin 500MG 100 ML IV SCH (20:37)
[2021-03-29] MEDS: ENOXAPARIN SOD 40 MG/0.4 ML SYRINGE SC SCH (21:40)
[2021-03-29] MEDS: ATORVASTATIN 20 MG TAB PO SCH (21:40)
[2021-03-29 22:00] VITALS: BP 117/66
[2021-03-30] MEDS: IPRATROPIUM BROM 0.5 MG/2.5ML INH SOL NEB SCH ×4 (01:46→18:27)
[2021-03-30] MEDS: ONDANSETRON HCL 4 MG/2 ML VIAL IV PRN ×5 (03:12→20:10)
[2021-03-30] MEDS: HYDROmorphone HCL 2 MG/ML VL IV PRN ×5 (03:13→20:10)
[2021-03-30 05:00] VITALS: BP 133/80
[2021-03-30] MEDS: MULTIPLE VITAMIN TAB PO SCH (09:55)
[2021-03-30] MEDS: methylPREDNISolone SOD SUCC 40 MG/ML VL IV SCH ×2 (09:55→22:03)
[2021-03-30] MEDS: ZINC SULFATE 220mg CAP or TAB PO SCH (09:56)
[2021-03-30] MEDS: ASCORBIC ACID 500 MG TAB PO SCH ×2 (09:56→22:04)
[2021-03-30] MEDS: CARVEDILOL 3.125 MG TAB PO SCH ×2 (09:56→22:04)
[2021-03-30] MEDS: ASPirin 81 mg TAB PO SCH (10:00)
[2021-03-30 17:00] VITALS: BP 116/67
[2021-03-30 20:00] VITALS: BP 118/72
[2021-03-30 21:05] VITALS: BP 133/80
[2021-03-30] MEDS ORDERED: LEVO-28 IV ×2 (21:17→21:23)
[2021-03-30] MEDS ORDERED: ZINC220C8 PO (21:21)
[2021-03-30] MEDS ORDERED: MULTTAB99 PO (21:22)
[2021-03-30] MEDS: levoFLOXacin 500MG 100 ML IV SCH (21:40)
[2021-03-30 22:00] VITALS: BP 118/72
[2021-03-30] MEDS: ENOXAPARIN SOD 40 MG/0.4 ML SYRINGE SC SCH (22:00)
[2021-03-30] MEDS: ATORVASTATIN 20 MG TAB PO SCH (22:04)
[2021-03-31] MEDS: IPRATROPIUM BROM 0.5 MG/2.5ML INH SOL NEB SCH ×2 (00:13→07:17)
[2021-03-31] MEDS: HYDROmorphone HCL 2 MG/ML VL IV PRN ×3 (00:29→09:39)
[2021-03-31] MEDS: ONDANSETRON HCL 4 MG/2 ML VIAL IV PRN ×3 (00:29→09:37)
[2021-03-31 05:00] VITALS: BP 136/73
[2021-03-31 08:58] VITALS: BP 111/89
[2021-03-31] MEDS: ASCORBIC ACID 500 MG TAB PO SCH (09:35)
[2021-03-31] MEDS: MULTIPLE VITAMIN TAB PO SCH (09:35)
[2021-03-31] MEDS: ZINC SULFATE 220mg CAP or TAB PO SCH (09:35)
[2021-03-31] MEDS: CARVEDILOL 3.125 MG TAB PO SCH (09:36)
[2021-03-31] MEDS: methylPREDNISolone SOD SUCC 40 MG/ML VL IV SCH (09:37)
[2021-03-31] MEDS: ASPirin 81 mg TAB PO SCH (09:42)
[2021-03-31 12:31] VITALS: BP 144/69
== END 2021-03-31 11:43 | DRG 193 ==
LOC: EDBD 15:23 → ER 15:23 → EDUNIT# 15:23 → TELE-WESTW 18:48
PROVIDERS: ADMIT Internal Medicine; ATTEND Internal Medicine
DX: J18.9 Pneumonia, unspecified organism (principal); J96.01 Acute respiratory failure with hypoxia; I50.23 Acute on chronic systolic (congestive) heart failure; J44.0 Chronic obstructive pulmonary disease with (acute) lower respiratory infection; J98.11 Atelectasis; N39.0 Urinary tract infection, site not specified; J44.1 Chronic obstructive pulmonary disease with (acute) exacerbation; I11.0 Hypertensive heart disease with heart failure; Z88.1 Allergy status to other antibiotic agents; Z66 Do not resuscitate; G89.29 Other chronic pain; I25.10 Atherosclerotic heart disease of native coronary artery without angina pectoris; K21.9 Gastro-esophageal reflux disease without esophagitis; M10.9 Gout, unspecified; E78.5 Hyperlipidemia, unspecified; E11.9 Type 2 diabetes mellitus without complications; F41.9 Anxiety disorder, unspecified; Z20.822 Contact with and (suspected) exposure to COVID-19; F32.A Depression, unspecified; Z79.899 Other long term (current) drug therapy; Z82.49 Family history of ischemic heart disease and other diseases of the circulatory system; Z88.5 Allergy status to narcotic agent; Z83.3 Family history of diabetes mellitus; Z86.73 Personal history of transient ischemic attack (TIA), and cerebral infarction without residual deficits; Z87.440 Personal history of urinary (tract) infections; Z87.442 Personal history of urinary calculi; Z87.891 Personal history of nicotine dependence; Z90.49 Acquired absence of other specified parts of digestive tract; Z90.710 Acquired absence of both cervix and uterus; Z95.1 Presence of aortocoronary bypass graft; Z95.810 Presence of automatic (implantable) cardiac defibrillator; Z99.3 Dependence on wheelchair; N20.0 Calculus of kidney
CPT/HCPCS: 36415; 71045; 71275; 72128; 72131; 74176; 80053; 81001; 82565; 83735; 83880; 84484; 85025; 85379; 85610; 85730; 87081; 87086; 87426; 93005; 94640; 96374; 96375; 96376; 97116; 97163; 97530; 99291; G0378; J1956; J2405

== ENCOUNTER 2021-04-04 22:17 | Emergency (ER) | payer MEDICARE, MEDICAID ==
[~2021-04-04] VITALS: Ht 170.2 cm; Wt 77.1 kg
[~2021-04-04 22:17] MED LIST changes: -ASPI-498 PO; -IPRA0.00 IN; +MULTTAB99 PO; +ZINC220C8 PO
[2021-04-04 22:57] LABS: Basophils # (auto) 0.2 10 ^3/uL (0-0.2); Basophils % (auto) 1.3 % (0.0-2.0); Eosinophils # (auto) 0.4 10 ^3/uL (0-0.8); Eosinophils % (auto) 2.8 % (0.0-7.0); Hematocrit 40.4 % (36.0-46.0); Hemoglobin 13.3 g/dL (12.2-16.2); Lymphocytes # (auto) 2.9 10 ^3/uL (0.4-5.4); Lymphocytes % (auto) 21.6 % (10.0-50.0); Mean Corpuscular Hemoglobin 29.3 pg (28.0-32.0); Mean Corpuscular Hgb Conc. 32.9 g/dL (32.0-36.0); Mean Corpuscular Volume 89.1 fL (80.0-100.0); Monocytes # (auto) 1.4 10 ^3/uL (0-1.3); Monocytes % (auto) 10.6 % (0.0-12.0); Neutrophils # (auto) 8.7 10 ^3/uL (1.6-8.6); Neutrophils % (auto) 63.7 % (37.0-80.0); Red Blood Cells 4.53 10^6/uL (4.0-5.20); Red Cell Distribution Width 15.5 % (11.8-14.3); White Blood Cell 13.6 10^3/uL (4.4-10.8)
[2021-04-04 23:15] LABS: Albumin 2.7 g/dL (3.4-5.0); BUN/Creatinine Ratio 30.7; Calcium 8.1 mg/dL (8.5-10.1); Potassium 4.9 mmol/L (3.5-5.1)
[2021-04-04 23:18] LABS: Bilirubin, Total 0.5 mg/dL (0.2-1.0); Total Protein 5.5 g/dL (6.4-8.2)
[2021-04-05 08:45] VITALS: BP 118/74
== END 2021-04-05 09:59 | disposition home or self-care (01) ==
LOC: EDBD 22:17 → ER 22:17
DX: N20.9 Urinary calculus, unspecified (principal); I11.0 Hypertensive heart disease with heart failure; I50.9 Heart failure, unspecified; I25.2 Old myocardial infarction; Z95.1 Presence of aortocoronary bypass graft; Z86.73 Personal history of transient ischemic attack (TIA), and cerebral infarction without residual deficits; Z90.89 Acquired absence of other organs; Z95.0 Presence of cardiac pacemaker; J44.9 Chronic obstructive pulmonary disease, unspecified; Z79.899 Other long term (current) drug therapy; Z88.6 Allergy status to analgesic agent; Z88.1 Allergy status to other antibiotic agents
CPT/HCPCS: 36415; 80053; 85025

== ENCOUNTER 2021-04-24 09:58 | Inpatient (IN) | payer MEDICARE, MEDICAID ==
[~2021-04-24] VITALS: Ht 162.6 cm; Wt 83.9 kg
[2021-04-24 12:09] LABS: Urine Bacteria NONE SEEN /hpf (None Seen); Urine Blood Negative /uL (Negative); Urine Specific Gravity 1.022 (1.001-1.035); Urine WBC 25 /hpf (0 - 5)
[2021-04-24] MEDS ORDERED: cefTRIAXone 1GM/50ML D5W 50 ML IV ONE (12:30)
[2021-04-24 12:39] LABS: Albumin 2.9 g/dL (3.4-5.0); Calcium 8.6 mg/dL (8.5-10.1); Potassium 4.2 mmol/L (3.5-5.1)
[2021-04-24 12:44] LABS: BUN/Creatinine Ratio 16.9; Bilirubin, Total 0.6 mg/dL (0.2-1.0); Total Protein 6.6 g/dL (6.4-8.2)
[2021-04-24 13:08] LABS: Basophils # (auto) 0.1 10 ^3/uL (0-0.2); Eosinophils # (auto) 1.1 10 ^3/uL (0-0.8); Eosinophils % (auto) 13.2 % (0.0-7.0); Hematocrit 42.5 % (36.0-46.0); Hemoglobin 14.3 g/dL (12.2-16.2); Lymphocytes # (auto) 2.6 10 ^3/uL (0.4-5.4); Lymphocytes % (auto) 32.7 % (10.0-50.0); Mean Corpuscular Hemoglobin 29.3 pg (28.0-32.0); Mean Corpuscular Hgb Conc. 33.6 g/dL (32.0-36.0); Mean Corpuscular Volume 87.2 fL (80.0-100.0); Monocytes # (auto) 1.3 10 ^3/uL (0-1.3); Monocytes % (auto) 16.3 % (0.0-12.0); Neutrophils # (auto) 2.9 10 ^3/uL (1.6-8.6); Neutrophils % (auto) 36.8 % (37.0-80.0); Nucleated Red Blood Cells % 0.1 %; Red Blood Cells 4.88 10^6/uL (4.0-5.20); Red Cell Distribution Width 14.6 % (11.8-14.3)
[2021-04-24] MEDS ORDERED: SODIUM CHLORIDE 0.9% 1,000 ML IV ONE (14:00)
[2021-04-24] MEDS ORDERED: ONDANSETRON HCL 4 MG/2 ML VIAL IV ONE (14:00)
[2021-04-24] MEDS ORDERED: HYDROmorphone HCL 2 MG/ML VL IV ONE (14:00)
[2021-04-24] MEDS ORDERED: ACETAMINOPHEN 325 MG TAB PO PRN (14:45)
[2021-04-24] MEDS ORDERED: TEMAZEPAM 15 MG CAP PO PRN (14:45)
[2021-04-24] MEDS ORDERED: MORPHINE SULFATE INJECTION 2 MG/ML SYRG IV PRN (14:45)
[2021-04-24] MEDS ORDERED: HYDROcodone-ACET 5/325MG TAB PO PRN (14:45)
[2021-04-24] MEDS ORDERED: MORPHINE SULFATE 4 MG/ML SYR/VIAL IV PRN (14:45)
[2021-04-24] MEDS ORDERED: DOCUSATE SOD 100 MG CAP PO PRN (14:45)
[2021-04-24] MEDS ORDERED: NITROGLYCERIN 0.4 MG SL TAB SL PRN (14:45)
[2021-04-24] MEDS: SODIUM CHLORIDE 0.9% 1,000 ML IV SCH (14:55)
[2021-04-24] MEDS ORDERED: KETOROLAC TROMETH 30 MG/ML 1ML VIAL IV PRN (16:00)
[2021-04-24] MEDS: HYDROmorphone HCL 2 MG/ML VL IV PRN ×3 (16:18→22:48)
[2021-04-24] MEDS: ONDANSETRON HCL 4 MG/2 ML VIAL IV PRN ×3 (16:19→22:48)
[2021-04-24 22:00] VITALS: BP 135/72
[2021-04-24 22:14] VITALS: BP 135/72
[2021-04-25] MEDS: HYDROmorphone HCL 2 MG/ML VL IV PRN ×6 (01:57→22:28)
[2021-04-25] MEDS: SODIUM CHLORIDE 0.9% 1,000 ML IV SCH (02:06)
[2021-04-25] MEDS: ONDANSETRON HCL 4 MG/2 ML VIAL IV PRN ×4 (02:59→22:26)
[2021-04-25 03:39] LABS: INR 1.06 (0.9-1.15)
[2021-04-25 05:15] VITALS: BP 125/75
[2021-04-25 06:17] LABS: Basophils # (auto) 0.1 10 ^3/uL (0-0.2); Eosinophils # (auto) 0.9 10 ^3/uL (0-0.8); Eosinophils % (auto) 11.1 % (0.0-7.0); Hematocrit 37.9 % (36.0-46.0); Hemoglobin 12.5 g/dL (12.2-16.2); Lymphocytes # (auto) 2.4 10 ^3/uL (0.4-5.4); Lymphocytes % (auto) 31.7 % (10.0-50.0); Mean Corpuscular Hemoglobin 29.2 pg (28.0-32.0); Mean Corpuscular Hgb Conc. 32.9 g/dL (32.0-36.0); Mean Corpuscular Volume 88.7 fL (80.0-100.0); Monocytes # (auto) 1.4 10 ^3/uL (0-1.3); Monocytes % (auto) 17.8 % (0.0-12.0); Neutrophils # (auto) 2.9 10 ^3/uL (1.6-8.6); Neutrophils % (auto) 38.4 % (37.0-80.0); Red Blood Cells 4.27 10^6/uL (4.0-5.20); Red Cell Distribution Width 14.4 % (11.8-14.3); White Blood Cell 7.7 10^3/uL (4.4-10.8)
[2021-04-25 06:50] LABS: Alanine Aminotransferase 15 U/L (13-56); Albumin 2.6 g/dL (3.4-5.0); Anion Gap 7 (5-15); Aspartate Aminotransferase 26 U/L (15-37); BUN/Creatinine Ratio 20.8; Blood Urea Nitrogen 15 mg/dL (7-18); Calcium 8.3 mg/dL (8.5-10.1); Carbon Dioxide 27 mmol/L (21-32); Chloride 108 mmol/L (98-107); GFR African American 101 mL/min; GFR Non-African American 84 mL/min; Glucose 74 mg/dL (74-106); Potassium 4.5 mmol/L (3.5-5.1); Sodium 142 mmol/L (136-145)
[2021-04-25 06:52] LABS: Alkaline Phosphatase 66 U/L (45-117); Bilirubin, Total 0.6 mg/dL (0.2-1.0); Total Protein 5.3 g/dL (6.4-8.2)
[2021-04-25 08:28] VITALS: BP 120/59
[2021-04-25] MEDS: HEPARIN SODIUM (PORCINE) 5000 UNITS/ML 1ML VIAL SC SCH ×2 (09:08→22:22)
[2021-04-25 12:19] VITALS: BP 127/71
[2021-04-25] MEDS ORDERED: ERTAPENEM SOD INJ 1 GM in SODIUM CHL 0.9% 50 ML IV ONE (16:00)
[2021-04-25 16:32] VITALS: BP 134/69
[2021-04-25 22:00] VITALS: BP 117/66
[2021-04-25] MEDS ORDERED: HEPARIN SODIUM (PORCINE) 5000 UNITS/ML 1ML VIAL ONE (22:08)
[2021-04-26] MEDS: SODIUM CHLORIDE 0.9% 1,000 ML IV SCH ×2 (04:41→18:52)
[2021-04-26] MEDS: HYDROmorphone HCL 2 MG/ML VL IV PRN ×6 (05:15→22:14)
[2021-04-26] MEDS: ONDANSETRON HCL 4 MG/2 ML VIAL IV PRN ×3 (05:15→18:53)
[2021-04-26 05:18] VITALS: BP 137/68
[2021-04-26 08:58] VITALS: BP 128/85
[2021-04-26] MEDS: ERTAPENEM SOD INJ 1 GM in SODIUM CHL 0.9% 50 ML IV SCH (10:16)
[2021-04-26 13:00] VITALS: BP 142/77
[2021-04-26 16:43] VITALS: BP 133/72
[2021-04-26 21:45] VITALS: BP 124/70
[2021-04-27] VITALS (9 sets, daily range): BP systolic 122–144; BP diastolic 69–81
[2021-04-27] MEDS: ONDANSETRON HCL 4 MG/2 ML VIAL IV PRN ×2 (02:09→22:14)
[2021-04-27] MEDS: HYDROmorphone HCL 2 MG/ML VL IV PRN ×4 (02:09→22:14)
[2021-04-27] MEDS ORDERED: fentaNYL CITRATE 100 MCG/2 ML VL ONE (06:56)
[2021-04-27] MEDS ORDERED: MIDAZOLAM HCL 2MG/2ML 2ml VIAL (1mg/ml) ONE (06:56)
[2021-04-27] MEDS ORDERED: PROPOFOL 10 MG/ML 20 ML IV ONE (06:57)
[2021-04-27] MEDS ORDERED: ONDANSETRON HCL 4 MG/2 ML VIAL ONE (06:57)
[2021-04-27] MEDS ORDERED: SUCCINYLCHOLINE CHLORIDE 20 MG/ML 10ML VIAL IV ONE (06:59)
[2021-04-27] MEDS ORDERED: ceFAZolin 1GM/50ML 100 ML IV ONE (07:09)
[2021-04-27] MEDS ORDERED: IOHEXOL 300 MG/ML 100ML BOTTLE IJ ONE ×2 (07:50→07:54)
[2021-04-27] MEDS ORDERED: MORPHINE SULFATE 4 MG/ML SYR/VIAL IV PRN (08:45)
[2021-04-27] MEDS ORDERED: ONDANSETRON HCL 4 MG/2 ML VIAL IV PRN (08:45)
[2021-04-27] MEDS ORDERED: HYDROmorphone HCL 2 MG/ML VL IV PRN (08:45)
[2021-04-27] MEDS ORDERED: FUROSEMIDE 20 MG/2 ML VIAL ONE (09:02)
[2021-04-27] MEDS: SODIUM CHLORIDE 0.9% 1,000 ML IV SCH (10:06)
[2021-04-27] MEDS: ERTAPENEM SOD INJ 1 GM in SODIUM CHL 0.9% 50 ML IV SCH (10:07)
[2021-04-27] MEDS: HEPARIN SODIUM (PORCINE) 5000 UNITS/ML 1ML VIAL SC SCH (22:06)
[2021-04-28] MEDS: HYDROmorphone HCL 2 MG/ML VL IV PRN ×6 (01:15→20:29)
[2021-04-28] MEDS: SODIUM CHLORIDE 0.9% 1,000 ML IV SCH ×2 (03:20→18:56)
[2021-04-28] MEDS: ONDANSETRON HCL 4 MG/2 ML VIAL IV PRN ×5 (04:24→20:29)
[2021-04-28 05:00] VITALS: BP 135/72
[2021-04-28 07:30] VITALS: BP 132/69
[2021-04-28] MEDS: ERTAPENEM SOD INJ 1 GM in SODIUM CHL 0.9% 50 ML IV SCH (08:37)
[2021-04-28] MEDS: HEPARIN SODIUM (PORCINE) 5000 UNITS/ML 1ML VIAL SC SCH ×2 (08:50→20:30)
[2021-04-28 09:00] VITALS: BP 132/69
[2021-04-28 13:00] VITALS: BP 110/56
[2021-04-28] MEDS ORDERED: HYDROcodone-ACET 10/325MG TAB PO PRN (16:15)
[2021-04-28 16:56] VITALS: BP 119/63
[2021-04-28] MEDS: PHENAZOPYRIDINE HCL 100 MG TAB PO SCH (20:27)
[2021-04-29 05:00] VITALS: BP 152/76
[2021-04-29] MEDS: ONDANSETRON HCL 4 MG/2 ML VIAL IV PRN ×4 (07:48→20:30)
[2021-04-29] MEDS: HYDROmorphone HCL 2 MG/ML VL IV PRN ×4 (07:48→20:32)
[2021-04-29 09:00] VITALS: BP 154/87
[2021-04-29] MEDS: ERTAPENEM SOD INJ 1 GM in SODIUM CHL 0.9% 50 ML IV SCH (09:56)
[2021-04-29] MEDS: HEPARIN SODIUM (PORCINE) 5000 UNITS/ML 1ML VIAL SC SCH ×2 (09:57→21:35)
[2021-04-29] MEDS: PHENAZOPYRIDINE HCL 100 MG TAB PO SCH ×2 (09:57→21:35)
[2021-04-29] MEDS: SODIUM CHLORIDE 0.9% 1,000 ML IV SCH (11:47)
[2021-04-29 13:00] VITALS: BP 141/86
[2021-04-29 17:20] VITALS: BP 167/82
[2021-04-29 20:15] VITALS: BP 134/69
[2021-04-29 22:00] VITALS: BP 134/69
[2021-04-30] VITALS (7 sets, daily range): BP systolic 134–163; BP diastolic 68–89
[2021-04-30] MEDS: ONDANSETRON HCL 4 MG/2 ML VIAL IV PRN ×5 (00:50→22:08)
[2021-04-30] MEDS: HYDROmorphone HCL 2 MG/ML VL IV PRN ×4 (00:51→16:08)
[2021-04-30] MEDS: SODIUM CHLORIDE 0.9% 1,000 ML IV SCH ×2 (04:31→20:32)
[2021-04-30] MEDS: ERTAPENEM SOD INJ 1 GM in SODIUM CHL 0.9% 50 ML IV SCH (09:57)
[2021-04-30] MEDS: HEPARIN SODIUM (PORCINE) 5000 UNITS/ML 1ML VIAL SC SCH ×2 (09:57→22:08)
[2021-04-30] MEDS: PHENAZOPYRIDINE HCL 100 MG TAB PO SCH ×2 (09:58→22:07)
[2021-04-30] MEDS: ASPirin 81 mg TAB PO SCH (09:58)
[2021-04-30] MEDS: HYDROmorphone HCL 2 MG TAB PO PRN (22:09)
[2021-05-01] VITALS (7 sets, daily range): BP systolic 126–162; BP diastolic 66–91
[2021-05-01] MEDS: HYDROmorphone HCL 2 MG TAB PO PRN ×2 (08:07→16:49)
[2021-05-01] MEDS: ONDANSETRON HCL 4 MG/2 ML VIAL IV PRN (08:07)
[2021-05-01] MEDS: ERTAPENEM SOD INJ 1 GM in SODIUM CHL 0.9% 50 ML IV SCH (10:06)
[2021-05-01] MEDS: ASPirin 81 mg TAB PO SCH (10:07)
[2021-05-01] MEDS: PHENAZOPYRIDINE HCL 100 MG TAB PO SCH ×2 (10:07→22:03)
[2021-05-01] MEDS: HEPARIN SODIUM (PORCINE) 5000 UNITS/ML 1ML VIAL SC SCH ×2 (10:07→22:07)
[2021-05-01] MEDS: SODIUM CHLORIDE 0.9% 1,000 ML IV SCH (14:05)
[2021-05-01] MEDS ORDERED: ZOLPIDEM TARTRATE 5 MG TAB PO PRN (20:30)
[2021-05-02] MEDS: HYDROmorphone HCL 2 MG TAB PO PRN ×2 (03:52→12:24)
[2021-05-02] MEDS: SODIUM CHLORIDE 0.9% 1,000 ML IV SCH (06:05)
[2021-05-02] MEDS: ONDANSETRON HCL 4 MG/2 ML VIAL IV PRN (06:50)
[2021-05-02 07:06] VITALS: BP 151/75
[2021-05-02 07:50] VITALS: BP 168/86
[2021-05-02 09:00] VITALS: BP 168/86
[2021-05-02] MEDS: ERTAPENEM SOD INJ 1 GM in SODIUM CHL 0.9% 50 ML IV SCH (09:40)
[2021-05-02] MEDS: PHENAZOPYRIDINE HCL 100 MG TAB PO SCH (09:40)
[2021-05-02] MEDS: ASPirin 81 mg TAB PO SCH (09:40)
[2021-05-02] MEDS: HEPARIN SODIUM (PORCINE) 5000 UNITS/ML 1ML VIAL SC SCH (09:43)
== END 2021-05-02 12:45 | DRG 694 ==
LOC: ER 09:58 → TELE 14:32 → TELE-CENTR 22:14
PROVIDERS: ADMIT Internal Medicine; ATTEND Internal Medicine
PROC: 0TF3XZZ Fragmentation in Right Kidney Pelvis, External Approach (ICD-10-PCS; principal; 2021-04-27 07:32)
DX: N20.0 Calculus of kidney (principal); N39.0 Urinary tract infection, site not specified; I50.22 Chronic systolic (congestive) heart failure; I13.0 Hypertensive heart and chronic kidney disease with heart failure and stage 1 through stage 4 chronic kidney disease, or unspecified chronic kidney disease; E44.0 Moderate protein-calorie malnutrition; G89.4 Chronic pain syndrome; E78.00 Pure hypercholesterolemia, unspecified; I25.10 Atherosclerotic heart disease of native coronary artery without angina pectoris; K21.9 Gastro-esophageal reflux disease without esophagitis; E78.5 Hyperlipidemia, unspecified; F41.9 Anxiety disorder, unspecified; N18.30 Chronic kidney disease, stage 3 unspecified; M10.9 Gout, unspecified; F32.A Depression, unspecified; Z20.822 Contact with and (suspected) exposure to COVID-19; Z66 Do not resuscitate; I25.5 Ischemic cardiomyopathy; K56.41 Fecal impaction; J44.9 Chronic obstructive pulmonary disease, unspecified; Z99.3 Dependence on wheelchair; Z95.810 Presence of automatic (implantable) cardiac defibrillator; Z79.82 Long term (current) use of aspirin; Z79.899 Other long term (current) drug therapy; Z82.49 Family history of ischemic heart disease and other diseases of the circulatory system; Z83.3 Family history of diabetes mellitus; Z86.73 Personal history of transient ischemic attack (TIA), and cerebral infarction without residual deficits; Z87.440 Personal history of urinary (tract) infections; Z87.442 Personal history of urinary calculi; Z87.891 Personal history of nicotine dependence; Z88.5 Allergy status to narcotic agent; Z90.49 Acquired absence of other specified parts of digestive tract; Z90.710 Acquired absence of both cervix and uterus; Z95.1 Presence of aortocoronary bypass graft; Z88.1 Allergy status to other antibiotic agents
CPT/HCPCS: 36415; 71045; 74018; 74176; 80053; 81001; 84484; 85025; 85610; 85730; 87081; 87086; 87088; 87426; 93005; 96361; 96374; 96375; 97116; 97163; 97530; G0378; J0330; J0690; J0696; J1335; J2250; J2405; J2704

== ENCOUNTER 2021-05-06 19:00 | Emergency (ER) | payer MEDICARE, MEDICAID ==
[~2021-05-06] VITALS: Ht 162.6 cm; Wt 70.3 kg
[2021-05-06 20:32] LABS: Hematocrit 39.6 % (36.0-46.0); Hemoglobin 13.3 g/dL (12.2-16.2); Mean Corpuscular Hemoglobin 29.7 pg (28.0-32.0); Mean Corpuscular Hgb Conc. 33.6 g/dL (32.0-36.0); Mean Corpuscular Volume 88.2 fL (80.0-100.0); Red Blood Cells 4.49 10^6/uL (4.0-5.20); Red Cell Distribution Width 14.8 % (11.8-14.3); White Blood Cell 10.2 10^3/uL (4.4-10.8)
[2021-05-06 20:43] LABS: Basophils % (manual) 0 (0.0-2.0); Blast Cells 0; Metamyelocytes % 0; Promyelocytes % 0
[2021-05-06] MEDS ORDERED: ONDANSETRON HCL 4 MG/2 ML VIAL IV ONE (20:45)
[2021-05-06] MEDS ORDERED: MORPHINE SULFATE INJECTION 2 MG/ML SYRG IV ONE ×2 (20:45→22:45)
[2021-05-06 20:48] LABS: Magnesium 1.7 mg/dL (1.6-2.6)
[2021-05-06 20:49] LABS: Albumin 3.3 g/dL (3.4-5.0); BUN/Creatinine Ratio 24.2; Calcium 8.3 mg/dL (8.5-10.1); Potassium 4.6 mmol/L (3.5-5.1)
[2021-05-06 20:51] LABS: Bilirubin, Total 0.5 mg/dL (0.2-1.0); Total Protein 6.2 g/dL (6.4-8.2)
[2021-05-06 21:33] LABS: Band Neutrophils % (manual) 4; Eosinophils % (manual) 11 (0-7); Lymphocytes % (manual) 24 (10.0-50.0); Monocytes % (manual) 11 (0-12); Myelocytes % 1; Reactive Lymphocytes 1
[2021-05-07 01:09] LABS: Urine Bacteria NONE SEEN /hpf (None Seen); Urine Blood Negative /uL (Negative); Urine Hyaline Cast FEW /lpf (0 - 2); Urine Mucus FEW (None Seen); Urine Specific Gravity 1.013 (1.001-1.035); Urine WBC 4 /hpf (0 - 5)
[2021-05-07 02:14] LABS: INR 1.07 (0.9-1.15)
[2021-05-07] MEDS ORDERED: SODIUM CHLORIDE 0.9% 500 ML IV ONE (02:15)
[2021-05-07] MEDS ORDERED: KETOROLAC TROMETH 30 MG/ML 1ML VIAL IV ONE (02:15)
[2021-05-07 09:18] VITALS: BP 109/53
== END 2021-05-07 09:20 | disposition home or self-care (01) ==
LOC: EDBD 19:00 → ER 19:05
DX: S61.411A Laceration without foreign body of right hand, initial encounter (principal); S20.211A Contusion of right front wall of thorax, initial encounter; I11.0 Hypertensive heart disease with heart failure; I50.9 Heart failure, unspecified; J44.9 Chronic obstructive pulmonary disease, unspecified; K21.9 Gastro-esophageal reflux disease without esophagitis; E78.5 Hyperlipidemia, unspecified; Z90.710 Acquired absence of both cervix and uterus; Z87.442 Personal history of urinary calculi; W18.39XA Other fall on same level, initial encounter; Y93.89 Activity, other specified; Y92.89 Other specified places as the place of occurrence of the external cause; Y99.8 Other external cause status
CPT/HCPCS: 36415; 70450; 71045; 71250; 72125; 74176; 80053; 81001; 83605; 83735; 83880; 84484; 85007; 85027; 85610; 93005; 96361; 96374; 96375; 96376; 99285; J1885; J2270; J2405; J7040

== ENCOUNTER 2021-05-24 20:45 | Inpatient (IN) | payer MEDICARE, MEDICAID ==
[~2021-05-24] VITALS: Ht 165.1 cm; Wt 72.1 kg
[2021-05-24] MEDS ORDERED: ONDANSETRON HCL 4 MG/2 ML VIAL IV ONE (22:00)
[2021-05-24] MEDS ORDERED: KETOROLAC TROMETH 30 MG/ML 1ML VIAL IV ONE (22:00)
[2021-05-24] MEDS ORDERED: MORPHINE SULFATE 4 MG/ML SYR/VIAL IV ONE (22:00)
[2021-05-24] MEDS ORDERED: SODIUM CHLORIDE 0.9% 500 ML IVB ONE (22:00)
[2021-05-24 22:21] LABS: Basophils # (auto) 0.1 10 ^3/uL (0-0.2); Basophils % (auto) 0.8 % (0.0-2.0); Eosinophils # (auto) 0.5 10 ^3/uL (0-0.8); Eosinophils % (auto) 5.2 % (0.0-7.0); Hematocrit 43.8 % (36.0-46.0); Hemoglobin 14.8 g/dL (12.2-16.2); Lymphocytes # (auto) 2.7 10 ^3/uL (0.4-5.4); Lymphocytes % (auto) 29.5 % (10.0-50.0); Mean Corpuscular Hemoglobin 29.2 pg (28.0-32.0); Mean Corpuscular Hgb Conc. 33.7 g/dL (32.0-36.0); Mean Corpuscular Volume 86.5 fL (80.0-100.0); Monocytes % (auto) 10.8 % (0.0-12.0); Neutrophils % (auto) 53.7 % (37.0-80.0); Red Blood Cells 5.06 10^6/uL (4.0-5.20); Red Cell Distribution Width 15.2 % (11.8-14.3); White Blood Cell 9.3 10^3/uL (4.4-10.8)
[2021-05-24 22:35] LABS: Albumin 3.7 g/dL (3.4-5.0); BUN/Creatinine Ratio 34.6; Calcium 9.7 mg/dL (8.5-10.1); Magnesium 2.3 mg/dL (1.6-2.6); Potassium 3.9 mmol/L (3.5-5.1)
[2021-05-24 22:38] LABS: Bilirubin, Total 0.8 mg/dL (0.2-1.0); Total Protein 6.5 g/dL (6.4-8.2)
[2021-05-25 06:18] LABS: Urine Bacteria FEW /hpf (None Seen); Urine Blood Negative /uL (Negative); Urine Hyaline Cast MANY /lpf (0 - 2); Urine Mucus FEW (None Seen); Urine Specific Gravity 1.014 (1.001-1.035); Urine WBC 12 /hpf (0 - 5)
[2021-05-25] MEDS ORDERED: TEMAZEPAM 15 MG CAP PO PRN (07:45)
[2021-05-25] MEDS ORDERED: MORPHINE SULFATE INJECTION 2 MG/ML SYRG IV PRN (07:45)
[2021-05-25] MEDS ORDERED: ACETAMINOPHEN 325 MG TAB PO PRN (07:45)
[2021-05-25] MEDS ORDERED: MORPHINE SULFATE 4 MG/ML SYR/VIAL IV PRN (07:45)
[2021-05-25] MEDS ORDERED: NITROGLYCERIN 0.4 MG SL TAB SL PRN (07:45)
[2021-05-25] MEDS ORDERED: ONDANSETRON HCL 4 MG/2 ML VIAL IV PRN (07:45)
[2021-05-25] MEDS ORDERED: HYDROcodone-ACET 5/325MG TAB PO PRN (07:45)
[2021-05-25] MEDS: MORPHINE SULFATE INJECTION 2 MG/ML SYRG IV PRN ×3 (08:12→19:16)
[2021-05-25] MEDS: MULTIPLE VITAMIN TAB PO SCH (10:10)
[2021-05-25] MEDS: ASCORBIC ACID 500 MG TAB PO SCH ×2 (10:10→22:04)
[2021-05-25] MEDS: ZINC SULFATE 220mg CAP or TAB PO SCH (10:10)
[2021-05-25 12:55] VITALS: BP 114/59
[2021-05-25 16:58] VITALS: BP 128/65
[2021-05-25 22:25] VITALS: BP 128/65
[2021-05-26] MEDS: MORPHINE SULFATE INJECTION 2 MG/ML SYRG IV PRN ×4 (01:09→20:07)
[2021-05-26 05:00] VITALS: BP 125/72
[2021-05-26 06:34] LABS: Basophils # (auto) 0 10 ^3/uL (0-0.2); Basophils % (auto) 0.6 % (0.0-2.0); Eosinophils # (auto) 0.7 10 ^3/uL (0-0.8); Eosinophils % (auto) 10.2 % (0.0-7.0); Hematocrit 38.7 % (36.0-46.0); Hemoglobin 13.3 g/dL (12.2-16.2); Lymphocytes # (auto) 1.8 10 ^3/uL (0.4-5.4); Lymphocytes % (auto) 26.2 % (10.0-50.0); Mean Corpuscular Hemoglobin 29.4 pg (28.0-32.0); Mean Corpuscular Hgb Conc. 34.4 g/dL (32.0-36.0); Mean Corpuscular Volume 85.5 fL (80.0-100.0); Monocytes # (auto) 0.9 10 ^3/uL (0-1.3); Monocytes % (auto) 12.6 % (0.0-12.0); Neutrophils # (auto) 3.5 10 ^3/uL (1.6-8.6); Neutrophils % (auto) 50.4 % (37.0-80.0); Nucleated Red Blood Cells % 0.1 %; Red Blood Cells 4.53 10^6/uL (4.0-5.20); Red Cell Distribution Width 15.1 % (11.8-14.3)
[2021-05-26 07:08] LABS: Albumin 3.2 g/dL (3.4-5.0); Calcium 8.9 mg/dL (8.5-10.1); Potassium 3.9 mmol/L (3.5-5.1)
[2021-05-26 07:10] LABS: BUN/Creatinine Ratio 39.4
[2021-05-26 07:13] LABS: Bilirubin, Total 0.4 mg/dL (0.2-1.0); Total Protein 5.8 g/dL (6.4-8.2)
[2021-05-26 08:58] VITALS: BP 113/63
[2021-05-26] MEDS: ASCORBIC ACID 500 MG TAB PO SCH ×2 (09:46→23:31)
[2021-05-26] MEDS: MULTIPLE VITAMIN TAB PO SCH (09:46)
[2021-05-26] MEDS: ZINC SULFATE 220mg CAP or TAB PO SCH (09:46)
[2021-05-26 12:30] VITALS: BP 121/69
[2021-05-26 17:12] VITALS: BP 141/82
[2021-05-26 21:30] VITALS: BP 114/79
[2021-05-27] MEDS: MORPHINE SULFATE INJECTION 2 MG/ML SYRG IV PRN ×2 (01:19→09:59)
[2021-05-27 05:00] VITALS: BP 126/74
[2021-05-27 09:00] VITALS: BP 122/76
[2021-05-27] MEDS: ASCORBIC ACID 500 MG TAB PO SCH (09:31)
[2021-05-27] MEDS: MULTIPLE VITAMIN TAB PO SCH (09:31)
[2021-05-27] MEDS: ZINC SULFATE 220mg CAP or TAB PO SCH (09:31)
[2021-05-27 09:59] VITALS: BP 122/76
== END 2021-05-27 10:20 | DRG 694 ==
LOC: EDBD 20:45 → ER 20:51 → TELE 05-25 07:35 → TELE-WESTW 05-25 09:44
PROVIDERS: ADMIT Internal Medicine; ATTEND Internal Medicine
DX: N20.0 Calculus of kidney (principal); E78.5 Hyperlipidemia, unspecified; F41.9 Anxiety disorder, unspecified; G89.4 Chronic pain syndrome; I11.0 Hypertensive heart disease with heart failure; I25.10 Atherosclerotic heart disease of native coronary artery without angina pectoris; I50.9 Heart failure, unspecified; K21.9 Gastro-esophageal reflux disease without esophagitis; M54.50 Low back pain, unspecified; Z20.822 Contact with and (suspected) exposure to COVID-19; G62.9 Polyneuropathy, unspecified; F32.A Depression, unspecified; J44.9 Chronic obstructive pulmonary disease, unspecified; Z76.5 Malingerer [conscious simulation]; Z88.5 Allergy status to narcotic agent; Z79.899 Other long term (current) drug therapy; Z82.49 Family history of ischemic heart disease and other diseases of the circulatory system; Z83.3 Family history of diabetes mellitus; Z86.19 Personal history of other infectious and parasitic diseases; Z87.442 Personal history of urinary calculi; Z90.710 Acquired absence of both cervix and uterus; Z95.1 Presence of aortocoronary bypass graft; Z88.1 Allergy status to other antibiotic agents; Z90.49 Acquired absence of other specified parts of digestive tract
CPT/HCPCS: 36415; 74176; 80053; 81001; 83690; 83735; 85025; 87426; 93005; 96361; 96374; 96375; 97163; G0378; J1885; J2405

== ENCOUNTER 2021-10-25 14:20 | Inpatient (IN) | payer OTHER, MEDICARE, MEDICAID ==
[~2021-10-25] VITALS: Ht 162.6 cm; Wt 77.3 kg
[2021-10-25 16:54] LABS: Basophils # (auto) 0.2 10 ^3/uL (0-0.2); Basophils % (auto) 0.9 % (0.0-2.0); Eosinophils # (auto) 0.2 10 ^3/uL (0-0.8); Eosinophils % (auto) 1.1 % (0.0-7.0); Hematocrit 34.6 % (36.0-46.0); Hemoglobin 11.8 g/dL (12.2-16.2); Lymphocytes # (auto) 2.4 10 ^3/uL (0.4-5.4); Lymphocytes % (auto) 14.3 % (10.0-50.0); Mean Corpuscular Hemoglobin 29.4 pg (28.0-32.0); Mean Corpuscular Volume 86.6 fL (80.0-100.0); Monocytes # (auto) 1.1 10 ^3/uL (0-1.3); Monocytes % (auto) 6.5 % (0.0-12.0); Neutrophils # (auto) 13.2 10 ^3/uL (1.6-8.6); Neutrophils % (auto) 77.2 % (37.0-80.0); Red Cell Distribution Width 14.4 % (11.8-14.3); White Blood Cell 17.1 10^3/uL (4.4-10.8)
[2021-10-25 17:09] LABS: Albumin 2.9 g/dL (3.4-5.0); Calcium 8.4 mg/dL (8.5-10.1); Potassium 3.8 mmol/L (3.5-5.1)
[2021-10-25 17:12] LABS: BUN/Creatinine Ratio 24.2; Bilirubin, Total 0.9 mg/dL (0.2-1.0); Total Protein 6.3 g/dL (6.4-8.2)
[2021-10-25 17:21] LABS: Urine Bacteria FEW /hpf (None Seen); Urine Blood Negative /uL (Negative); Urine Specific Gravity 1.011 (1.001-1.035); Urine WBC 35 /hpf (0 - 5)
[2021-10-25] MEDS ORDERED: IOHEXOL 300 MG/ML 100ML BOTTLE IJ ONE (17:26)
[2021-10-25] MEDS ORDERED: CIPROFLOXACIN 400MG/200ML 200 ML IV ONE (17:30)
[2021-10-25] MEDS ORDERED: KETOROLAC TROMETH 30 MG/ML 1ML VIAL IV ONE (18:00)
[2021-10-25] MEDS ORDERED: MORPHINE SULFATE INJ 2 MG/ml SYRG IV PRN (21:30)
[2021-10-25] MEDS ORDERED: NITROGLYCERIN 0.4 MG SL TAB SL PRN (21:30)
[2021-10-25] MEDS: MORPHINE SULFATE INJ 2 MG/ml SYRG IV PRN (22:08)
[2021-10-25] MEDS: ONDANSETRON HCL 4 MG/2 ML VIAL IV PRN (22:08)
[2021-10-25] MEDS: cefTRIAXone 1GM/50ML D5W 50 ML IV ONE ×2 (22:21→22:28)
[2021-10-26] MEDS ORDERED: FENT25DI2 TD (02:06)
[2021-10-26] MEDS: MORPHINE SULFATE INJ 2 MG/ml SYRG IV PRN ×5 (02:17→20:46)
[2021-10-26 03:04] VITALS: BP 104/45
[2021-10-26 05:00] VITALS: BP 112/52
[2021-10-26 09:00] VITALS: BP 107/60
[2021-10-26] MEDS ORDERED: levoFLOXacin 500MG 100 ML IV ONE (10:00)
[2021-10-26] MEDS ORDERED: levoFLOXacin 500MG 100 ML IV SCH (10:00)
[2021-10-26 13:00] VITALS: BP 110/60
[2021-10-26] MEDS: ONDANSETRON HCL 4 MG/2 ML VIAL IV PRN ×2 (15:26→20:46)
[2021-10-26 16:48] VITALS: BP 112/62
[2021-10-26 22:00] VITALS: BP 123/63
[2021-10-26] MEDS: MUPIROCIN 2% OINT 15gm or 22gm EACHNOSTRI SCH (22:53)
[2021-10-27] MEDS: ONDANSETRON HCL 4 MG/2 ML VIAL IV PRN (03:52)
[2021-10-27] MEDS: MORPHINE SULFATE INJ 2 MG/ml SYRG IV PRN ×4 (03:52→20:43)
[2021-10-27 05:00] VITALS: BP 102/51
[2021-10-27 05:45] LABS: Basophils # (auto) 0.1 10 ^3/uL (0-0.2); Basophils % (auto) 0.9 % (0.0-2.0); Eosinophils # (auto) 0.3 10 ^3/uL (0-0.8); Hematocrit 37.5 % (36.0-46.0); Hemoglobin 12.8 g/dL (12.2-16.2); Lymphocytes # (auto) 1.8 10 ^3/uL (0.4-5.4); Lymphocytes % (auto) 22.3 % (10.0-50.0); Mean Corpuscular Hemoglobin 29.9 pg (28.0-32.0); Mean Corpuscular Hgb Conc. 34.2 g/dL (32.0-36.0); Mean Corpuscular Volume 87.5 fL (80.0-100.0); Monocytes # (auto) 0.6 10 ^3/uL (0-1.3); Monocytes % (auto) 7.7 % (0.0-12.0); Neutrophils # (auto) 5.1 10 ^3/uL (1.6-8.6); Neutrophils % (auto) 65.1 % (37.0-80.0); Nucleated Red Blood Cells % 0.1 %; Red Blood Cells 4.29 10^6/uL (4.0-5.20); Red Cell Distribution Width 14.5 % (11.8-14.3); White Blood Cell 7.9 10^3/uL (4.4-10.8)
[2021-10-27 05:49] LABS: Albumin 2.8 g/dL (3.4-5.0); BUN/Creatinine Ratio 21.8; Calcium 8.6 mg/dL (8.5-10.1)
[2021-10-27 05:51] LABS: Bilirubin, Total 0.5 mg/dL (0.2-1.0); Total Protein 5.9 g/dL (6.4-8.2)
[2021-10-27 08:23] VITALS: BP 130/70
[2021-10-27] MEDS: MUPIROCIN 2% OINT 15gm or 22gm EACHNOSTRI SCH ×2 (09:30→20:43)
[2021-10-27] MEDS ORDERED: levoFLOXacin 250MG 50 ML IV SCH (10:00)
[2021-10-27 13:00] VITALS: BP 133/69
[2021-10-27 16:49] VITALS: BP 142/69
[2021-10-27] MEDS ORDERED: levoFLOXacin 250MG 50 ML IV ONE (17:00)
[2021-10-27] MEDS ORDERED: ERTAPENEM SOD INJ 1 GM in SODIUM CHL 0.9% 50 ML IV SCH (20:00)
[2021-10-27 22:00] VITALS: BP 147/68
[2021-10-28] MEDS: ONDANSETRON HCL 4 MG/2 ML VIAL IV PRN ×2 (03:39→14:21)
[2021-10-28] MEDS: MORPHINE SULFATE INJ 2 MG/ml SYRG IV PRN ×3 (03:40→14:22)
[2021-10-28 05:00] VITALS: BP 145/71
[2021-10-28 09:00] VITALS: BP 136/69
[2021-10-28] MEDS: MUPIROCIN 2% OINT 15gm or 22gm EACHNOSTRI SCH (09:51)
[2021-10-28] MEDS ORDERED: levoFLOXacin 500MG 100 ML IV SCH (10:00)
[2021-10-28] MEDS ORDERED: ERTAPENEM SOD 1 GM INJ VIAL IM SCH (10:00)
[2021-10-28 16:44] VITALS: BP 132/74
== END 2021-10-28 16:53 | DRG 693 ==
LOC: ER 14:20 → EDBD 14:20 → TELE 21:23 → TELE-WESTW 23:42
PROVIDERS: ADMIT Internal Medicine; ATTEND Internal Medicine
PROC: 05H933Z Insertion of Infusion Device into Right Brachial Vein, Percutaneous Approach (ICD-10-PCS; principal; 2021-10-28)
PROC: B54MZZA Ultrasonography of Right Upper Extremity Veins, Guidance (ICD-10-PCS; 2021-10-28)
DX: N20.0 Calculus of kidney (principal); J18.9 Pneumonia, unspecified organism; N39.0 Urinary tract infection, site not specified; I50.22 Chronic systolic (congestive) heart failure; J44.0 Chronic obstructive pulmonary disease with (acute) lower respiratory infection; I11.0 Hypertensive heart disease with heart failure; F32.A Depression, unspecified; F41.9 Anxiety disorder, unspecified; K21.9 Gastro-esophageal reflux disease without esophagitis; Z20.822 Contact with and (suspected) exposure to COVID-19; I25.10 Atherosclerotic heart disease of native coronary artery without angina pectoris; Z79.899 Other long term (current) drug therapy; Z82.49 Family history of ischemic heart disease and other diseases of the circulatory system; Z83.3 Family history of diabetes mellitus; Z83.511 Family history of glaucoma; Z87.440 Personal history of urinary (tract) infections; Z87.442 Personal history of urinary calculi; Z90.710 Acquired absence of both cervix and uterus; Z95.1 Presence of aortocoronary bypass graft; Z95.810 Presence of automatic (implantable) cardiac defibrillator; Z88.5 Allergy status to narcotic agent
CPT/HCPCS: 36415; 74177; 80053; 81001; 85025; 87081; 87086; 87088; 87186; 93005; 96365; 96375; G0378; J0696; J1335; J1885; J1956; J2405

== ENCOUNTER 2021-11-11 16:38 | Inpatient (IN) | payer MEDICARE, MEDICAID ==
[~2021-11-11] VITALS: Ht 162.6 cm; Wt 74.2 kg
[~2021-11-11 16:38] MED LIST changes: +FENT25DI2 TD
[2021-11-11 18:00] LABS: Basophils # (auto) 0 10 ^3/uL (0-0.2); Basophils % (auto) 0.2 % (0.0-2.0); Eosinophils # (auto) 0.3 10 ^3/uL (0-0.8); Eosinophils % (auto) 4.6 % (0.0-7.0); Hematocrit 35.4 % (36.0-46.0); Hemoglobin 12.4 g/dL (12.2-16.2); Lymphocytes # (auto) 2.6 10 ^3/uL (0.4-5.4); Lymphocytes % (auto) 38.3 % (10.0-50.0); Mean Corpuscular Hemoglobin 29.7 pg (28.0-32.0); Mean Corpuscular Hgb Conc. 35.1 g/dL (32.0-36.0); Mean Corpuscular Volume 84.8 fL (80.0-100.0); Monocytes # (auto) 0.8 10 ^3/uL (0-1.3); Monocytes % (auto) 11.9 % (0.0-12.0); Nucleated Red Blood Cells % 0.2 %; Red Blood Cells 4.18 10^6/uL (4.0-5.20); Red Cell Distribution Width 13.9 % (11.8-14.3); White Blood Cell 6.7 10^3/uL (4.4-10.8)
[2021-11-11 18:19] LABS: Albumin 2.9 g/dL (3.4-5.0); Calcium 8.5 mg/dL (8.5-10.1); Potassium 3.8 mmol/L (3.5-5.1)
[2021-11-11 18:22] LABS: BUN/Creatinine Ratio 21.3; Bilirubin, Total 0.6 mg/dL (0.2-1.0); Total Protein 6.5 g/dL (6.4-8.2)
[2021-11-11] MEDS ORDERED: MORPHINE SULFATE 4 MG/ML SYR/VIAL IV ONE (19:15)
[2021-11-11] MEDS ORDERED: levoFLOXacin 500MG 100 ML IV ONE (19:15)
[2021-11-11] MEDS ORDERED: ONDANSETRON HCL 4 MG/2 ML VIAL IV ONE (19:15)
[2021-11-11] MEDS ORDERED: DOCUSATE SOD 100 MG CAP PO PRN (21:30)
[2021-11-11] MEDS ORDERED: IBUPROFEN 400 MG TAB PO PRN (21:30)
[2021-11-11] MEDS: SODIUM CHLOR 0.9% PF (SALINE LOCK) 10ML VIAL/SYR IV SCH (22:23)
[2021-11-11] MEDS: ASCORBIC ACID 500 MG TAB PO SCH (22:53)
[2021-11-11] MEDS ORDERED: NITROGLYCERIN 0.4 MG SL TAB SL PRN (23:00)
[2021-11-11] MEDS ORDERED: MORPHINE SULFATE INJ 2 MG/ml SYRG IV PRN (23:00)
[2021-11-12] MEDS: MORPHINE SULFATE INJ 2 MG/ml SYRG IV PRN ×4 (02:24→22:50)
[2021-11-12] MEDS: ONDANSETRON HCL 4 MG/2 ML VIAL IV PRN ×3 (02:25→22:50)
[2021-11-12] MEDS: SODIUM CHLOR 0.9% PF (SALINE LOCK) 10ML VIAL/SYR IV SCH ×3 (06:00→22:00)
[2021-11-12 08:46] LABS: Basophils # (auto) 0.1 10 ^3/uL (0-0.2); Basophils % (auto) 2.3 % (0.0-2.0); Eosinophils # (auto) 0.5 10 ^3/uL (0-0.8); Eosinophils % (auto) 9.3 % (0.0-7.0); Hematocrit 38.9 % (36.0-46.0); Hemoglobin 13.1 g/dL (12.2-16.2); Lymphocytes % (auto) 36.2 % (10.0-50.0); Mean Corpuscular Hemoglobin 29.2 pg (28.0-32.0); Mean Corpuscular Hgb Conc. 33.7 g/dL (32.0-36.0); Mean Corpuscular Volume 86.7 fL (80.0-100.0); Monocytes # (auto) 0.7 10 ^3/uL (0-1.3); Monocytes % (auto) 12.2 % (0.0-12.0); Neutrophils # (auto) 2.2 10 ^3/uL (1.6-8.6); Red Blood Cells 4.49 10^6/uL (4.0-5.20); Red Cell Distribution Width 14.2 % (11.8-14.3); White Blood Cell 5.5 10^3/uL (4.4-10.8)
[2021-11-12 09:02] LABS: Albumin 3.1 g/dL (3.4-5.0); Calcium 9.2 mg/dL (8.5-10.1); Potassium 4.1 mmol/L (3.5-5.1)
[2021-11-12 09:05] LABS: BUN/Creatinine Ratio 20.6; Bilirubin, Total 0.6 mg/dL (0.2-1.0); Total Protein 6.8 g/dL (6.4-8.2)
[2021-11-12] MEDS: levoFLOXacin 500MG 100 ML IV SCH (10:43)
[2021-11-12] MEDS: ZINC SULFATE 220mg CAP or TAB PO SCH (10:44)
[2021-11-12] MEDS: ENOXAPARIN SOD 40 MG/0.4 ML SYRINGE SC SCH (10:44)
[2021-11-12] MEDS: MULTIPLE VITAMIN TAB PO SCH (10:44)
[2021-11-12] MEDS: ASCORBIC ACID 500 MG TAB PO SCH ×2 (10:44→22:00)
[2021-11-12] MEDS: FAMOTIDINE (10MG/ML) 2ML VL IV SCH (10:44)
[2021-11-12] MEDS ORDERED: ZOLPIDEM TARTRATE 5 MG TAB ONE (22:58)
[2021-11-12] MEDS: ZOLPIDEM TARTRATE 5 MG TAB PO PRN (22:58)
[2021-11-13] MEDS: ONDANSETRON HCL 4 MG/2 ML VIAL IV PRN ×4 (04:36→20:12)
[2021-11-13] MEDS: MORPHINE SULFATE INJ 2 MG/ml SYRG IV PRN ×3 (04:36→16:03)
[2021-11-13 05:00] VITALS: BP 106/59
[2021-11-13] MEDS: SODIUM CHLOR 0.9% PF (SALINE LOCK) 10ML VIAL/SYR IV SCH ×3 (05:42→22:00)
[2021-11-13 09:07] VITALS: BP 116/68
[2021-11-13] MEDS: FAMOTIDINE (10MG/ML) 2ML VL IV SCH (09:44)
[2021-11-13] MEDS: levoFLOXacin 500MG 100 ML IV SCH (09:44)
[2021-11-13] MEDS: ASCORBIC ACID 500 MG TAB PO SCH ×2 (09:45→22:01)
[2021-11-13] MEDS: ENOXAPARIN SOD 40 MG/0.4 ML SYRINGE SC SCH (09:45)
[2021-11-13] MEDS: ZINC SULFATE 220mg CAP or TAB PO SCH (09:45)
[2021-11-13] MEDS: MULTIPLE VITAMIN TAB PO SCH (09:45)
[2021-11-13 13:00] VITALS: BP 113/62
[2021-11-13 13:00] LABS: Urine Bacteria MANY /hpf (None Seen); Urine Blood Negative /uL (Negative); Urine Mucus FEW (None Seen); Urine Specific Gravity 1.021 (1.001-1.035); Urine WBC 89 /hpf (0 - 5)
[2021-11-13] MEDS ORDERED: diphenhdrAMINE HCL 50 MG/1 ML VL IV PRN (14:00)
[2021-11-13] MEDS: MEROPENEM 1GM IVPB 100 ML IV SCH ×2 (15:30→22:00)
[2021-11-13 17:00] VITALS: BP 124/55
[2021-11-13] MEDS ORDERED: IOHEXOL 300 MG/ML 100ML BOTTLE IJ ONE (18:06)
[2021-11-13] MEDS: MORPHINE SULFATE 4 MG/ML SYR/VIAL IV PRN (20:11)
[2021-11-13 21:55] VITALS: BP 131/66
[2021-11-13] MEDS: PHENAZOPYRIDINE HCL 100 MG TAB PO SCH (22:00)
[2021-11-13] MEDS: ZOLPIDEM TARTRATE 5 MG TAB PO PRN (22:01)
[2021-11-13] MEDS: TOLTERODINE TARTRATE 1 MG TAB PO SCH (22:06)
[2021-11-14] MEDS: ONDANSETRON HCL 4 MG/2 ML VIAL IV PRN ×6 (00:18→22:24)
[2021-11-14] MEDS: ZOLPIDEM TARTRATE 5 MG TAB PO PRN (00:18)
[2021-11-14] MEDS: MORPHINE SULFATE 4 MG/ML SYR/VIAL IV PRN ×6 (00:18→22:24)
[2021-11-14 04:51] VITALS: BP 129/61
[2021-11-14] MEDS: MEROPENEM 1GM IVPB 100 ML IV SCH ×3 (05:48→22:28)
[2021-11-14 09:00] VITALS: BP 139/60
[2021-11-14] MEDS: ZINC SULFATE 220mg CAP or TAB PO SCH (09:35)
[2021-11-14] MEDS: PHENAZOPYRIDINE HCL 100 MG TAB PO SCH ×2 (09:35→22:23)
[2021-11-14] MEDS: MULTIPLE VITAMIN TAB PO SCH (09:35)
[2021-11-14] MEDS: FAMOTIDINE (10MG/ML) 2ML VL IV SCH (09:39)
[2021-11-14] MEDS: ASCORBIC ACID 500 MG TAB PO SCH ×2 (09:39→22:23)
[2021-11-14] MEDS: TOLTERODINE TARTRATE 1 MG TAB PO SCH ×2 (09:40→22:23)
[2021-11-14] MEDS: ENOXAPARIN SOD 40 MG/0.4 ML SYRINGE SC SCH (09:40)
[2021-11-14 13:00] VITALS: BP 116/66
[2021-11-14] MEDS: metroNIDAZOLE 500 MG TAB PO SCH ×2 (14:43→22:23)
[2021-11-14] MEDS: SODIUM CHLOR 0.9% PF (SALINE LOCK) 10ML VIAL/SYR IV SCH ×3 (15:00→22:23)
[2021-11-14 17:00] VITALS: BP 130/57
[2021-11-14 22:00] VITALS: BP 133/61
[2021-11-15 05:00] VITALS: BP 129/78
[2021-11-15] MEDS: metroNIDAZOLE 500 MG TAB PO SCH ×3 (05:26→21:43)
[2021-11-15] MEDS: MEROPENEM 1GM IVPB 100 ML IV SCH ×3 (05:26→23:00)
[2021-11-15] MEDS: SODIUM CHLOR 0.9% PF (SALINE LOCK) 10ML VIAL/SYR IV SCH ×3 (05:27→23:00)
[2021-11-15] MEDS: MORPHINE SULFATE 4 MG/ML SYR/VIAL IV PRN ×5 (05:27→23:04)
[2021-11-15] MEDS: ONDANSETRON HCL 4 MG/2 ML VIAL IV PRN ×5 (05:27→23:04)
[2021-11-15 06:27] LABS: INR 1.07 (0.9-1.15)
[2021-11-15] MEDS ORDERED: GOLYTELY 4L KIT PO ONE (09:00)
[2021-11-15 09:08] VITALS: BP 129/69
[2021-11-15] MEDS: FAMOTIDINE (10MG/ML) 2ML VL IV SCH (09:14)
[2021-11-15] MEDS: ZINC SULFATE 220mg CAP or TAB PO SCH (09:14)
[2021-11-15] MEDS: ENOXAPARIN SOD 40 MG/0.4 ML SYRINGE SC SCH (09:15)
[2021-11-15] MEDS: ASCORBIC ACID 500 MG TAB PO SCH ×2 (09:15→21:43)
[2021-11-15] MEDS: MULTIPLE VITAMIN TAB PO SCH (09:15)
[2021-11-15] MEDS: PHENAZOPYRIDINE HCL 100 MG TAB PO SCH ×2 (09:15→21:43)
[2021-11-15] MEDS: TOLTERODINE TARTRATE 1 MG TAB PO SCH ×2 (09:15→21:43)
[2021-11-15 13:00] VITALS: BP 127/50
[2021-11-15] MEDS ORDERED: FENT50DI2 TD (14:39)
[2021-11-15 17:04] VITALS: BP 129/70
[2021-11-15 22:00] VITALS: BP 144/67
[2021-11-16 05:00] VITALS: BP 135/52
[2021-11-16] MEDS: MEROPENEM 1GM IVPB 100 ML IV SCH ×3 (05:52→22:17)
[2021-11-16] MEDS: SODIUM CHLOR 0.9% PF (SALINE LOCK) 10ML VIAL/SYR IV SCH ×3 (05:52→22:18)
[2021-11-16] MEDS: metroNIDAZOLE 500 MG TAB PO SCH ×3 (05:53→22:18)
[2021-11-16 08:25] LABS: Basophils # (auto) 0.1 10 ^3/uL (0-0.2); Basophils % (auto) 0.9 % (0.0-2.0); Eosinophils # (auto) 0.1 10 ^3/uL (0-0.8); Eosinophils % (auto) 1.8 % (0.0-7.0); Hematocrit 38.8 % (36.0-46.0); Hemoglobin 13.2 g/dL (12.2-16.2); Lymphocytes # (auto) 0.9 10 ^3/uL (0.4-5.4); Mean Corpuscular Hemoglobin 29.2 pg (28.0-32.0); Mean Corpuscular Volume 85.9 fL (80.0-100.0); Monocytes # (auto) 0.7 10 ^3/uL (0-1.3); Neutrophils # (auto) 4.5 10 ^3/uL (1.6-8.6); Neutrophils % (auto) 71.3 % (37.0-80.0); Nucleated Red Blood Cells % 0.1 %; Red Blood Cells 4.52 10^6/uL (4.0-5.20); White Blood Cell 6.3 10^3/uL (4.4-10.8)
[2021-11-16 08:39] LABS: INR 1.11 (0.9-1.15); Partial Thromboplastin Time 35.3 sec (23.6-33.0)
[2021-11-16 08:40] LABS: Albumin 3.1 g/dL (3.4-5.0); Calcium 9.1 mg/dL (8.5-10.1)
[2021-11-16 08:45] LABS: BUN/Creatinine Ratio 10.8; Bilirubin, Total 0.6 mg/dL (0.2-1.0); Total Protein 6.4 g/dL (6.4-8.2)
[2021-11-16 09:16] VITALS: BP 155/80
[2021-11-16] MEDS ORDERED: fentaNYL CITRATE 100 MCG/2 ML VL ONE (09:30)
[2021-11-16] MEDS ORDERED: MIDAZOLAM HCL 2MG/2ML 2ml VIAL (1mg/ml) ONE (09:30)
[2021-11-16] MEDS ORDERED: ONDANSETRON HCL 4 MG/2 ML VIAL ONE (09:32)
[2021-11-16] MEDS ORDERED: LIDOCAINE 2% (LOCAL ANESTH.) PF 5ml SDV ONE (09:32)
[2021-11-16] MEDS ORDERED: PROPOFOL 10 MG/ML 20 ML IV ONE (09:32)
[2021-11-16] MEDS: MULTIPLE VITAMIN TAB PO SCH (10:00)
[2021-11-16] MEDS ORDERED: ONDANSETRON HCL 4 MG/2 ML VIAL IV PRN (10:30)
[2021-11-16] MEDS ORDERED: KETAMINE HCL 10 ML ONE (10:54)
[2021-11-16] MEDS: ZINC SULFATE 220mg CAP or TAB PO SCH (11:13)
[2021-11-16] MEDS: FAMOTIDINE (10MG/ML) 2ML VL IV SCH (11:13)
[2021-11-16] MEDS: PHENAZOPYRIDINE HCL 100 MG TAB PO SCH ×2 (11:14→22:19)
[2021-11-16] MEDS: TOLTERODINE TARTRATE 1 MG TAB PO SCH ×2 (11:14→22:18)
[2021-11-16] MEDS: ENOXAPARIN SOD 40 MG/0.4 ML SYRINGE SC SCH (11:15)
[2021-11-16] MEDS: ASCORBIC ACID 500 MG TAB PO SCH ×2 (11:15→22:19)
[2021-11-16 12:35] VITALS: BP 136/70
[2021-11-16] MEDS ORDERED: POTASSIUM CHL 20 Meq TABLET PO ONE ×2 (13:00→18:00)
[2021-11-16 16:44] VITALS: BP 140/62
[2021-11-16 22:19] VITALS: BP 146/71
[2021-11-17 05:05] VITALS: BP 138/70
[2021-11-17] MEDS: metroNIDAZOLE 500 MG TAB PO SCH ×2 (05:58→16:09)
[2021-11-17] MEDS: SODIUM CHLOR 0.9% PF (SALINE LOCK) 10ML VIAL/SYR IV SCH ×2 (05:58→14:00)
[2021-11-17] MEDS: MEROPENEM 1GM IVPB 100 ML IV SCH (05:58)
[2021-11-17] MEDS ORDERED: ERTAPENEM SOD INJ 1 GM in SODIUM CHL 0.9% 50 ML IV SCH (10:00)
[2021-11-17] MEDS: FAMOTIDINE (10MG/ML) 2ML VL IV SCH (11:04)
[2021-11-17] MEDS: TOLTERODINE TARTRATE 1 MG TAB PO SCH (11:05)
[2021-11-17] MEDS: ZINC SULFATE 220mg CAP or TAB PO SCH (11:05)
[2021-11-17] MEDS: MULTIPLE VITAMIN TAB PO SCH (11:06)
[2021-11-17] MEDS: PHENAZOPYRIDINE HCL 100 MG TAB PO SCH (11:06)
[2021-11-17] MEDS: ASCORBIC ACID 500 MG TAB PO SCH (11:06)
[2021-11-17] MEDS: ENOXAPARIN SOD 40 MG/0.4 ML SYRINGE SC SCH (11:07)
[2021-11-17] MEDS: ONDANSETRON HCL 4 MG/2 ML VIAL IV PRN ×2 (11:28→16:10)
[2021-11-17] MEDS: MORPHINE SULFATE 4 MG/ML SYR/VIAL IV PRN ×2 (11:31→16:11)
[2021-11-17 13:00] VITALS: BP 140/67
[2021-11-17 16:41] VITALS: BP 140/67
== END 2021-11-17 16:53 | DRG 690 ==
LOC: EDBD 16:38 → ER 16:38 → OVERFLOW 22:55 → CENTRAL 11-12 19:52
PROVIDERS: ADMIT Nurse Practitioner Family; ATTEND Internal Medicine
PROC: 0DJD8ZZ Inspection of Lower Intestinal Tract, Via Natural or Artificial Opening Endoscopic (ICD-10-PCS; principal; 2021-11-16 09:31)
DX: N39.0 Urinary tract infection, site not specified (principal); I13.0 Hypertensive heart and chronic kidney disease with heart failure and stage 1 through stage 4 chronic kidney disease, or unspecified chronic kidney disease; I50.22 Chronic systolic (congestive) heart failure; N20.2 Calculus of kidney with calculus of ureter; Z16.12 Extended spectrum beta lactamase (ESBL) resistance; E44.1 Mild protein-calorie malnutrition; K52.9 Noninfective gastroenteritis and colitis, unspecified; Z66 Do not resuscitate; E78.5 Hyperlipidemia, unspecified; F32.A Depression, unspecified; F41.9 Anxiety disorder, unspecified; K21.9 Gastro-esophageal reflux disease without esophagitis; G89.29 Other chronic pain; K57.30 Diverticulosis of large intestine without perforation or abscess without bleeding; I25.10 Atherosclerotic heart disease of native coronary artery without angina pectoris; I25.2 Old myocardial infarction; Z87.442 Personal history of urinary calculi; Z95.1 Presence of aortocoronary bypass graft; Z76.5 Malingerer [conscious simulation]; Z79.899 Other long term (current) drug therapy; Z82.49 Family history of ischemic heart disease and other diseases of the circulatory system; Z83.3 Family history of diabetes mellitus; Z83.511 Family history of glaucoma; Z90.49 Acquired absence of other specified parts of digestive tract; Z90.710 Acquired absence of both cervix and uterus; Z95.810 Presence of automatic (implantable) cardiac defibrillator; Z88.1 Allergy status to other antibiotic agents; Z88.5 Allergy status to narcotic agent; Z68.20 Body mass index [BMI] 20.0-20.9, adult
CPT/HCPCS: 36415; 71045; 74178; 76856; 80053; 81001; 83605; 84484; 85025; 85610; 85730; 86850; 86900; 86901; 87086; 87088; 87186; 93005; 96365; 96375; 97163; G0378; J1335; J1956; J2001; J2185; J2250; J2405; J2704; J3490

== ENCOUNTER 2022-03-20 08:19 | Inpatient (IN) | payer MEDICARE, MEDICAID ==
[~2022-03-20] VITALS: Ht 162.6 cm; Wt 75.0 kg
[~2022-03-20 08:19] MED LIST changes: -ACET-1156 PO; -ASCO500T11 PO; -BISA10SU45 RE; -CRAN425C2 PO; -DOCU100T23 PO; -FENT25DI2 TD; +FENT50DI2 TD; -HYOS0.1293 PO; -ISOS1TAB28 PO; -LACT1CAP14 PO; -MAGNSUS48 PO; -MULTTAB99 PO; -OXYC325T14 PO; -ZINC220C8 PO; -ZOLP10TA PO
[2022-03-20] MEDS ORDERED: ONDANSETRON HCL 4 MG/2 ML VIAL IV ONE (08:30)
[2022-03-20 08:58] LABS: Basophils # (auto) 0.1 10 ^3/uL (0-0.2); Basophils % (auto) 1.3 % (0.0-2.0); Eosinophils # (auto) 1.3 10 ^3/uL (0-0.8); Eosinophils % (auto) 14.6 % (0.0-7.0); Hematocrit 39.9 % (36.0-46.0); Hemoglobin 13.5 g/dL (12.2-16.2); Lymphocytes % (auto) 33.8 % (10.0-50.0); Mean Corpuscular Hemoglobin 29.7 pg (28.0-32.0); Mean Corpuscular Hgb Conc. 33.9 g/dL (32.0-36.0); Mean Corpuscular Volume 87.6 fL (80.0-100.0); Monocytes # (auto) 0.9 10 ^3/uL (0-1.3); Monocytes % (auto) 10.1 % (0.0-12.0); Neutrophils # (auto) 3.6 10 ^3/uL (1.6-8.6); Neutrophils % (auto) 40.2 % (37.0-80.0); Nucleated Red Blood Cells % 0.1 %; Red Blood Cells 4.55 10^6/uL (4.0-5.20); White Blood Cell 8.9 10^3/uL (4.4-10.8)
[2022-03-20 09:01] LABS: Albumin 3.5 g/dL (3.4-5.0); BUN/Creatinine Ratio 21.4; Calcium 8.5 mg/dL (8.5-10.1); Magnesium 2.2 mg/dL (1.6-2.6); Potassium 4.2 mmol/L (3.5-5.1); Uric Acid 4.7 mg/dL (2.6-6.0)
[2022-03-20 09:03] LABS: Bilirubin, Total 0.5 mg/dL (0.2-1.0); INR 0.98 (0.9-1.15); Partial Thromboplastin Time 31.3 sec (24.6-33.4); Total Protein 6.3 g/dL (6.4-8.2)
[2022-03-20] MEDS ORDERED: MORPHINE SULFATE 4 MG/ML SYR/VIAL IV ONE (10:15)
[2022-03-20] MEDS ORDERED: NITROGLYCERIN 0.4 MG SL TAB SL PRN (11:15)
[2022-03-20] MEDS ORDERED: CARISOPRODOL 350 MG TAB PO PRN (11:15)
[2022-03-20] MEDS ORDERED: MORPHINE SULFATE INJ 2 MG/ml SYRG IV PRN (11:15)
[2022-03-20] MEDS ORDERED: ENOXAPARIN SOD 40 MG/0.4 ML SYRINGE SC ONE (11:45)
[2022-03-20] MEDS ORDERED: ALBUTEROL SULF 2.5 MG/0.5ML(0.5%) NEB SOLN NEB PRN ×2 (11:45→12:00)
[2022-03-20] MEDS ORDERED: IPRATROPIUM BROM 0.5 MG/2.5ML INH SOL NEB PRN (11:45)
[2022-03-20] MEDS ORDERED: AZITHROMYCIN 500MG/ 250ML 250 ML IV ONE (11:45)
[2022-03-20] MEDS: ALBUTEROL SULF 2.5 MG/0.5ML(0.5%) NEB SOLN NEB SCH ×2 (12:34→19:16)
[2022-03-20] MEDS: IPRATROPIUM BROM 0.5 MG/2.5ML INH SOL NEB SCH ×2 (12:34→19:16)
[2022-03-20] MEDS ORDERED: PREGABALIN 25 MG CAP PO PRN (13:30)
[2022-03-20] MEDS ORDERED: ALBUTEROL SULF HFA 90MCG INH 200DOSE IN SCH (14:00)
[2022-03-20] MEDS: MORPHINE SULF 15mg ER tab PO SCH ×2 (15:25→22:15)
[2022-03-20 16:37] LABS: Urine Bacteria FEW /hpf (None Seen); Urine Blood Negative /uL (Negative); Urine Hyaline Cast FEW /lpf (0 - 2); Urine Mucus FEW (None Seen); Urine Specific Gravity 1.027 (1.001-1.035); Urine WBC 2 /hpf (0 - 5)
[2022-03-20] MEDS: CARVEDILOL 3.125 MG TAB PO SCH (22:17)
[2022-03-20 22:29] VITALS: BP 106/52
[2022-03-21 04:46] VITALS: BP 114/64
[2022-03-21] MEDS: MORPHINE SULF 15mg ER tab PO SCH ×3 (05:25→23:59)
[2022-03-21 05:37] LABS: Basophils # (auto) 0.1 10 ^3/uL (0-0.2); Eosinophils # (auto) 1.1 10 ^3/uL (0-0.8); Eosinophils % (auto) 13.8 % (0.0-7.0); Hematocrit 37.8 % (36.0-46.0); Hemoglobin 13.1 g/dL (12.2-16.2); Lymphocytes # (auto) 2.6 10 ^3/uL (0.4-5.4); Lymphocytes % (auto) 33.7 % (10.0-50.0); Mean Corpuscular Hemoglobin 30.5 pg (28.0-32.0); Mean Corpuscular Hgb Conc. 34.6 g/dL (32.0-36.0); Mean Corpuscular Volume 88.1 fL (80.0-100.0); Monocytes # (auto) 0.8 10 ^3/uL (0-1.3); Monocytes % (auto) 10.7 % (0.0-12.0); Neutrophils # (auto) 3.1 10 ^3/uL (1.6-8.6); Neutrophils % (auto) 40.8 % (37.0-80.0); Nucleated Red Blood Cells % 0.1 %; Red Blood Cells 4.29 10^6/uL (4.0-5.20); Red Cell Distribution Width 13.7 % (11.8-14.3); White Blood Cell 7.7 10^3/uL (4.4-10.8)
[2022-03-21] MEDS: IPRATROPIUM BROM 0.5 MG/2.5ML INH SOL NEB SCH ×3 (06:02→19:03)
[2022-03-21] MEDS: ALBUTEROL SULF 2.5 MG/0.5ML(0.5%) NEB SOLN NEB SCH ×4 (06:02→19:02)
[2022-03-21 07:56] LABS: Calcium 8.3 mg/dL (8.5-10.1); Potassium 4.2 mmol/L (3.5-5.1)
[2022-03-21 08:01] LABS: BUN/Creatinine Ratio 25.6; Bilirubin, Total 0.5 mg/dL (0.2-1.0); Total Protein 5.8 g/dL (6.4-8.2)
[2022-03-21] MEDS: ENOXAPARIN SOD 40 MG/0.4 ML SYRINGE SC SCH (08:33)
[2022-03-21] MEDS: FUROSEMIDE 40 MG/4 ML VIAL IV SCH (08:33)
[2022-03-21] MEDS: AZITHROMYCIN 500MG/ 250ML 250 ML IV SCH (08:34)
[2022-03-21] MEDS: ASPirin 81 mg TAB PO SCH (08:34)
[2022-03-21] MEDS: CARVEDILOL 3.125 MG TAB PO SCH ×2 (08:34→21:50)
[2022-03-21] MEDS: FLUoxetine HCL 20 MG CAP PO SCH (08:35)
[2022-03-21] MEDS: ATORVASTATIN 20 MG TAB PO SCH (08:35)
[2022-03-21] MEDS: PANTOPRAZOLE 40 MG TAB PO SCH (08:35)
[2022-03-21] MEDS: POTASSIUM CHL 10 Meq TABLET PO SCH (08:35)
[2022-03-21 09:00] VITALS: BP 120/61
[2022-03-21] MEDS ORDERED: FUROSEMIDE 40 MG TAB PO SCH (10:00)
[2022-03-21] MEDS: ALPRAZolam 0.5 MG TAB PO PRN ×2 (10:46→18:31)
[2022-03-21 13:00] VITALS: BP 124/61
[2022-03-21 16:38] VITALS: BP 109/73
[2022-03-21 22:02] VITALS: BP 106/40
[2022-03-22 05:00] VITALS: BP 103/61
[2022-03-22] MEDS: MORPHINE SULF 15mg ER tab PO SCH ×3 (07:24→21:45)
[2022-03-22] MEDS: IPRATROPIUM BROM 0.5 MG/2.5ML INH SOL NEB SCH ×3 (08:02→18:44)
[2022-03-22] MEDS: ALBUTEROL SULF 2.5 MG/0.5ML(0.5%) NEB SOLN NEB SCH ×3 (08:02→18:44)
[2022-03-22 09:00] VITALS: BP 107/47
[2022-03-22] MEDS: AZITHROMYCIN 500MG/ 250ML 250 ML IV SCH (09:01)
[2022-03-22] MEDS: ENOXAPARIN SOD 40 MG/0.4 ML SYRINGE SC SCH (09:02)
[2022-03-22] MEDS: FUROSEMIDE 40 MG/4 ML VIAL IV SCH (09:02)
[2022-03-22] MEDS: CARVEDILOL 3.125 MG TAB PO SCH ×2 (09:03→21:48)
[2022-03-22] MEDS: POTASSIUM CHL 10 Meq TABLET PO SCH (09:03)
[2022-03-22] MEDS: FLUoxetine HCL 20 MG CAP PO SCH (09:04)
[2022-03-22] MEDS: PANTOPRAZOLE 40 MG TAB PO SCH (09:04)
[2022-03-22] MEDS: ASPirin 81 mg TAB PO SCH (09:04)
[2022-03-22] MEDS: ATORVASTATIN 20 MG TAB PO SCH (09:04)
[2022-03-22 13:00] VITALS: BP 99/61
[2022-03-22] MEDS: guaiFENesin 200 MG/10 ML UD PO PRN (14:31)
[2022-03-22 16:26] VITALS: BP 100/49
[2022-03-22 20:00] VITALS: BP 112/51
[2022-03-22 22:00] VITALS: BP 112/51
[2022-03-23 04:59] VITALS: BP 112/52
[2022-03-23] MEDS: MORPHINE SULF 15mg ER tab PO SCH ×3 (06:22→21:18)
[2022-03-23] MEDS: ALBUTEROL SULF 2.5 MG/0.5ML(0.5%) NEB SOLN NEB SCH ×3 (06:40→18:33)
[2022-03-23] MEDS: IPRATROPIUM BROM 0.5 MG/2.5ML INH SOL NEB SCH ×3 (06:40→18:33)
[2022-03-23] MEDS: PANTOPRAZOLE 40 MG TAB PO SCH (08:49)
[2022-03-23 09:00] VITALS: BP 109/48
[2022-03-23] MEDS: ASPirin 81 mg TAB PO SCH (09:59)
[2022-03-23] MEDS: CARVEDILOL 3.125 MG TAB PO SCH ×2 (09:59→21:20)
[2022-03-23] MEDS: ENOXAPARIN SOD 40 MG/0.4 ML SYRINGE SC SCH (10:00)
[2022-03-23] MEDS: FLUoxetine HCL 20 MG CAP PO SCH (10:00)
[2022-03-23] MEDS: ATORVASTATIN 20 MG TAB PO SCH (10:00)
[2022-03-23] MEDS: POTASSIUM CHL 10 Meq TABLET PO SCH (10:00)
[2022-03-23] MEDS: AZITHROMYCIN 500MG/ 250ML 250 ML IV SCH (10:45)
[2022-03-23] MEDS: FUROSEMIDE 40 MG/4 ML VIAL IV SCH (10:45)
[2022-03-23 13:00] VITALS: BP 107/58
[2022-03-23 13:31] VITALS: BP 109/48
[2022-03-23] MEDS: HYDROmorphone HCL 2 MG/ML VL/or syr IV PRN ×2 (13:49→21:24)
[2022-03-23 16:31] VITALS: BP 115/53
[2022-03-23] MEDS: levoFLOXacin 500MG 100 ML IV SCH (18:40)
[2022-03-23] MEDS ORDERED: IOHEXOL 300 MG/ML 100ML BOTTLE IJ ONE (20:28)
[2022-03-23 22:00] VITALS: BP 109/56
[2022-03-24] MEDS: HYDROmorphone HCL 2 MG/ML VL/or syr IV PRN ×4 (03:26→23:20)
[2022-03-24 05:00] VITALS: BP 104/38
[2022-03-24] MEDS: MORPHINE SULF 15mg ER tab PO SCH ×3 (05:59→21:49)
[2022-03-24] MEDS: IPRATROPIUM BROM 0.5 MG/2.5ML INH SOL NEB SCH ×3 (07:26→18:33)
[2022-03-24] MEDS: ALBUTEROL SULF 2.5 MG/0.5ML(0.5%) NEB SOLN NEB SCH ×3 (07:26→18:33)
[2022-03-24] MEDS: PANTOPRAZOLE 40 MG TAB PO SCH (07:55)
[2022-03-24 09:00] VITALS: BP 100/49
[2022-03-24] MEDS: CARVEDILOL 3.125 MG TAB PO SCH ×2 (10:41→21:49)
[2022-03-24] MEDS: levoFLOXacin 500MG 100 ML IV SCH (10:41)
[2022-03-24] MEDS: ENOXAPARIN SOD 40 MG/0.4 ML SYRINGE SC SCH (10:42)
[2022-03-24] MEDS: POTASSIUM CHL 10 Meq TABLET PO SCH (10:43)
[2022-03-24] MEDS: FUROSEMIDE 40 MG/4 ML VIAL IV SCH (10:43)
[2022-03-24] MEDS: FLUoxetine HCL 20 MG CAP PO SCH (10:43)
[2022-03-24] MEDS: ATORVASTATIN 20 MG TAB PO SCH (10:43)
[2022-03-24] MEDS: ASPirin 81 mg TAB PO SCH (10:43)
[2022-03-24 13:00] VITALS: BP 106/43
[2022-03-24 17:00] VITALS: BP 103/44
[2022-03-24] MEDS: guaiFENesin 200 MG/10 ML UD PO PRN (21:58)
[2022-03-24 22:00] VITALS: BP 101/51
[2022-03-25 05:00] VITALS: BP 109/43
[2022-03-25] MEDS: MORPHINE SULF 15mg ER tab PO SCH ×3 (06:46→22:04)
[2022-03-25] MEDS: HYDROmorphone HCL 2 MG/ML VL/or syr IV PRN ×3 (06:46→18:59)
[2022-03-25] MEDS: ALBUTEROL SULF 2.5 MG/0.5ML(0.5%) NEB SOLN NEB SCH ×3 (07:21→19:03)
[2022-03-25] MEDS: IPRATROPIUM BROM 0.5 MG/2.5ML INH SOL NEB SCH ×3 (07:21→19:03)
[2022-03-25] MEDS: PANTOPRAZOLE 40 MG TAB PO SCH (07:45)
[2022-03-25 09:01] VITALS: BP 107/47
[2022-03-25] MEDS: levoFLOXacin 500MG 100 ML IV SCH (09:54)
[2022-03-25] MEDS: POTASSIUM CHL 10 Meq TABLET PO SCH (09:54)
[2022-03-25] MEDS: CARVEDILOL 3.125 MG TAB PO SCH ×2 (09:55→22:00)
[2022-03-25] MEDS: ATORVASTATIN 20 MG TAB PO SCH (09:55)
[2022-03-25] MEDS: ASPirin 81 mg TAB PO SCH (09:55)
[2022-03-25] MEDS: FLUoxetine HCL 20 MG CAP PO SCH (09:55)
[2022-03-25] MEDS: ENOXAPARIN SOD 40 MG/0.4 ML SYRINGE SC SCH (09:56)
[2022-03-25] MEDS: FUROSEMIDE 40 MG/4 ML VIAL IV SCH (09:56)
[2022-03-25 13:11] VITALS: BP 98/58
[2022-03-25 16:56] VITALS: BP 94/43
[2022-03-25 20:00] VITALS: BP 162/100
[2022-03-25 22:00] VITALS: BP 109/52
[2022-03-26] VITALS (8 sets, daily range): BP systolic 92–119; BP diastolic 36–63
[2022-03-26] MEDS: HYDROmorphone HCL 2 MG/ML VL/or syr IV PRN ×2 (00:30→06:15)
[2022-03-26] MEDS: MORPHINE SULF 15mg ER tab PO SCH ×3 (06:14→20:41)
[2022-03-26] MEDS: IPRATROPIUM BROM 0.5 MG/2.5ML INH SOL NEB SCH ×3 (07:18→18:29)
[2022-03-26] MEDS: ALBUTEROL SULF 2.5 MG/0.5ML(0.5%) NEB SOLN NEB SCH ×3 (07:18→18:29)
[2022-03-26] MEDS: PANTOPRAZOLE 40 MG TAB PO SCH (07:56)
[2022-03-26] MEDS: levoFLOXacin 500MG 100 ML IV SCH (10:56)
[2022-03-26] MEDS: ASPirin 81 mg TAB PO SCH (10:56)
[2022-03-26] MEDS: CARVEDILOL 3.125 MG TAB PO SCH ×3 (10:57→22:50)
[2022-03-26] MEDS: FUROSEMIDE 40 MG/4 ML VIAL IV SCH (10:57)
[2022-03-26] MEDS: ATORVASTATIN 20 MG TAB PO SCH (10:58)
[2022-03-26] MEDS: POTASSIUM CHL 10 Meq TABLET PO SCH (10:58)
[2022-03-26] MEDS: FLUoxetine HCL 20 MG CAP PO SCH (10:58)
[2022-03-26] MEDS: ENOXAPARIN SOD 40 MG/0.4 ML SYRINGE SC SCH (10:58)
[2022-03-26] MEDS: guaiFENesin 200 MG/10 ML UD PO PRN (20:41)
[2022-03-27 05:00] VITALS: BP 122/60
[2022-03-27] MEDS: ALBUTEROL SULF 2.5 MG/0.5ML(0.5%) NEB SOLN NEB SCH ×2 (07:06→11:12)
[2022-03-27] MEDS: IPRATROPIUM BROM 0.5 MG/2.5ML INH SOL NEB SCH ×2 (07:06→11:12)
[2022-03-27] MEDS: MORPHINE SULF 15mg ER tab PO SCH ×2 (07:49→14:00)
[2022-03-27] MEDS: PANTOPRAZOLE 40 MG TAB PO SCH (07:50)
[2022-03-27 09:00] VITALS: BP_SYST 127; BP_SYST 139; BP_DIAS 45; BP_DIAS 74
[2022-03-27] MEDS: levoFLOXacin 500MG 100 ML IV SCH (10:46)
[2022-03-27] MEDS: ASPirin 81 mg TAB PO SCH (10:47)
[2022-03-27] MEDS: FUROSEMIDE 40 MG/4 ML VIAL IV SCH (10:47)
[2022-03-27] MEDS: FLUoxetine HCL 20 MG CAP PO SCH (10:48)
[2022-03-27] MEDS: POTASSIUM CHL 10 Meq TABLET PO SCH (10:48)
[2022-03-27] MEDS: CARVEDILOL 3.125 MG TAB PO SCH (10:48)
[2022-03-27] MEDS: ATORVASTATIN 20 MG TAB PO SCH (10:48)
[2022-03-27] MEDS: ENOXAPARIN SOD 40 MG/0.4 ML SYRINGE SC SCH (10:49)
[2022-03-27 13:00] VITALS: BP 121/67
== END 2022-03-27 15:50 | DRG 291 ==
LOC: ER 08:19 → EDBD 08:19 → TELE 11:25 → TELE-WESTW 21:15
PROVIDERS: ADMIT Registered Nurse; ATTEND Nurse Practitioner
PROC: 4B02XTZ Measurement of Cardiac Defibrillator, External Approach (ICD-10-PCS; principal; 2022-03-22)
DX: I11.0 Hypertensive heart disease with heart failure (principal); I50.23 Acute on chronic systolic (congestive) heart failure; J96.20 Acute and chronic respiratory failure, unspecified whether with hypoxia or hypercapnia; J98.11 Atelectasis; N39.0 Urinary tract infection, site not specified; I25.110 Atherosclerotic heart disease of native coronary artery with unstable angina pectoris; Z66 Do not resuscitate; K21.9 Gastro-esophageal reflux disease without esophagitis; I25.5 Ischemic cardiomyopathy; Z20.822 Contact with and (suspected) exposure to COVID-19; E78.5 Hyperlipidemia, unspecified; M10.9 Gout, unspecified; J43.9 Emphysema, unspecified; Z79.899 Other long term (current) drug therapy; Z82.49 Family history of ischemic heart disease and other diseases of the circulatory system; Z83.3 Family history of diabetes mellitus; Z86.73 Personal history of transient ischemic attack (TIA), and cerebral infarction without residual deficits; Z88.5 Allergy status to narcotic agent; Z88.6 Allergy status to analgesic agent; Z45.02 Encounter for adjustment and management of automatic implantable cardiac defibrillator; Z86.16 Personal history of COVID-19; Z87.442 Personal history of urinary calculi; Z87.891 Personal history of nicotine dependence; Z95.1 Presence of aortocoronary bypass graft; Z87.440 Personal history of urinary (tract) infections; Z90.710 Acquired absence of both cervix and uterus; Z90.49 Acquired absence of other specified parts of digestive tract; Z95.810 Presence of automatic (implantable) cardiac defibrillator; Z99.3 Dependence on wheelchair
CPT/HCPCS: 36415; 36600; 71045; 74018; 74178; 80053; 81001; 82805; 83605; 83735; 83880; 84484; 84550; 85025; 85610; 85730; 87040; 87086; 87426; 93005; 93306; 94640; 96365; 96372; 96375; 96376; 99291; G0378; J1956; J2405

== ENCOUNTER 2022-04-08 01:33 | Inpatient (IN) | payer MEDICARE, MEDICAID ==
[~2022-04-08] VITALS: Ht 160 cm; Wt 79.2 kg
[2022-04-08 03:08] LABS: Urine Bacteria NONE SEEN /hpf (None Seen); Urine Blood Negative /uL (Negative); Urine Hyaline Cast FEW /lpf (0 - 2); Urine Specific Gravity 1.014 (1.001-1.035); Urine WBC 5 /hpf (0 - 5)
[2022-04-08 03:10] LABS: Basophils # (auto) 0.1 10 ^3/uL (0-0.2); Basophils % (auto) 0.7 % (0.0-2.0); Eosinophils # (auto) 0.5 10 ^3/uL (0-0.8); Eosinophils % (auto) 4.5 % (0.0-7.0); Hematocrit 38.3 % (36.0-46.0); Hemoglobin 13.1 g/dL (12.2-16.2); Lymphocytes # (auto) 2.1 10 ^3/uL (0.4-5.4); Lymphocytes % (auto) 18.3 % (10.0-50.0); Mean Corpuscular Hgb Conc. 34.1 g/dL (32.0-36.0); Mean Corpuscular Volume 87.9 fL (80.0-100.0); Monocytes % (auto) 8.9 % (0.0-12.0); Neutrophils # (auto) 7.9 10 ^3/uL (1.6-8.6); Neutrophils % (auto) 67.6 % (37.0-80.0); Nucleated Red Blood Cells % 0.1 %; Red Blood Cells 4.36 10^6/uL (4.0-5.20); Red Cell Distribution Width 13.8 % (11.8-14.3); White Blood Cell 11.7 10^3/uL (4.4-10.8)
[2022-04-08 03:26] LABS: Albumin 3.4 g/dL (3.4-5.0); BUN/Creatinine Ratio 21.1; Calcium 8.6 mg/dL (8.5-10.1); Potassium 3.7 mmol/L (3.5-5.1)
[2022-04-08 03:28] LABS: Lactic Acid w/Reflex 2.3 mmol/L (0.4-2.0)
[2022-04-08 03:29] LABS: Bilirubin, Total 0.3 mg/dL (0.2-1.0); Total Protein 6.3 g/dL (6.4-8.2)
[2022-04-08] MEDS ORDERED: LACTATED RINGER'S 1,000 ML IV ONE (04:45)
[2022-04-08 05:08] LABS: Alcohol, Urine < 3.0 mg/dL (0-10); Amphetamine Screen, Urine NEGATIVE (NEGATIVE); Barbiturate Scree,Urine NEGATIVE (NEGATIVE); Benzodiazephine Screen, Urine POSITIVE (NEGATIVE); Cannabinoid Screen, Urine NEGATIVE (NEGATIVE); Cocaine Screen, Urine NEGATIVE (NEGATIVE); Opiate Scree,Urine POSITIVE (NEGATIVE); Phencyclidine Screen, Urine NEGATIVE (NEGATIVE)
[2022-04-08] MEDS ORDERED: NITROGLYCERIN 0.4 MG SL TAB SL SCH (09:30)
[2022-04-08] MEDS ORDERED: NITROGLYCERIN 0.4 MG SL TAB SL PRN (09:30)
[2022-04-08] MEDS ORDERED: ONDANSETRON HCL 4 MG/2 ML VIAL IV PRN (09:30)
[2022-04-08] MEDS ORDERED: ALBUTEROL SULF HFA 90MCG INH 200DOSE IN SCH (10:00)
[2022-04-08] MEDS ORDERED: levoFLOXacin 500 MG TAB PO SCH (10:00)
[2022-04-08] MEDS ORDERED: levoFLOXacin 500 MG TAB PO ONE (10:00)
[2022-04-08] MEDS: FUROSEMIDE 40 MG TAB PO SCH (10:09)
[2022-04-08] MEDS: ATORVASTATIN 20 MG TAB PO SCH (10:09)
[2022-04-08] MEDS: CARVEDILOL 3.125 MG TAB PO SCH ×2 (10:09→22:54)
[2022-04-08 11:04] VITALS: BP 113/42
[2022-04-08] MEDS: ALBUTEROL SULF 2.5 MG/0.5ML(0.5%) NEB SOLN NEB SCH ×3 (14:56→23:21)
[2022-04-08] MEDS ORDERED: PREGABALIN 25 MG CAP PO PRN (17:00)
[2022-04-08] MEDS ORDERED: HYDROmorphone HCL 2 MG/ML VL/or syr IV ONE (17:45)
[2022-04-08] MEDS: HYDROmorphone HCL 2 MG TAB PO PRN (21:14)
[2022-04-08] MEDS ORDERED: MORPHINE SULF 15mg ER tab PO SCH (22:00)
[2022-04-09 00:26] VITALS: BP 98/41
[2022-04-09] MEDS: ALBUTEROL SULF 2.5 MG/0.5ML(0.5%) NEB SOLN NEB SCH ×4 (02:17→15:18)
[2022-04-09] MEDS: HYDROmorphone HCL 2 MG TAB PO PRN (03:48)
[2022-04-09 05:00] VITALS: BP 114/47
[2022-04-09 06:29] LABS: Basophils # (auto) 0.1 10 ^3/uL (0-0.2); Basophils % (auto) 0.5 % (0.0-2.0); Eosinophils # (auto) 0.4 10 ^3/uL (0-0.8); Eosinophils % (auto) 3.6 % (0.0-7.0); Hematocrit 36.5 % (36.0-46.0); Hemoglobin 12.4 g/dL (12.2-16.2); Lymphocytes # (auto) 2.9 10 ^3/uL (0.4-5.4); Lymphocytes % (auto) 26.2 % (10.0-50.0); Mean Corpuscular Hemoglobin 30.2 pg (28.0-32.0); Mean Corpuscular Hgb Conc. 33.9 g/dL (32.0-36.0); Monocytes # (auto) 1.1 10 ^3/uL (0-1.3); Monocytes % (auto) 10.4 % (0.0-12.0); Neutrophils # (auto) 6.4 10 ^3/uL (1.6-8.6); Neutrophils % (auto) 59.3 % (37.0-80.0); Nucleated Red Blood Cells % 0.1 %; Red Cell Distribution Width 13.9 % (11.8-14.3); White Blood Cell 10.9 10^3/uL (4.4-10.8)
[2022-04-09 06:41] LABS: Calcium 8.5 mg/dL (8.5-10.1)
[2022-04-09 06:46] LABS: BUN/Creatinine Ratio 17.2; Bilirubin, Total 0.7 mg/dL (0.2-1.0); Total Protein 5.7 g/dL (6.4-8.2)
[2022-04-09] MEDS ORDERED: PANTOPRAZOLE 40 MG TAB PO SCH (08:00)
[2022-04-09] MEDS: CARVEDILOL 3.125 MG TAB PO SCH (10:00)
[2022-04-09] MEDS ORDERED: levoFLOXacin 250 MG TAB PO SCH (10:00)
[2022-04-09] MEDS: FUROSEMIDE 40 MG TAB PO SCH (10:00)
[2022-04-09] MEDS: ATORVASTATIN 20 MG TAB PO SCH (10:38)
[2022-04-09 10:40] VITALS: BP 99/45
[2022-04-09 13:00] VITALS: BP 100/51
[2022-04-09] MEDS ORDERED: HYDROmorphone HCL 2 MG TAB PO PRN (13:45)
[2022-04-09 15:04] VITALS: BP 99/45
== END 2022-04-09 17:03 | DRG 918 ==
LOC: EDBD 01:33 → ER 01:36 → TELE 09:21 → TELE-WESTW 23:36
PROVIDERS: ADMIT Nurse Practitioner; ATTEND Nurse Practitioner
DX: T40.2X1A Poisoning by other opioids, accidental (unintentional), initial encounter (principal); N39.0 Urinary tract infection, site not specified; N17.9 Acute kidney failure, unspecified; J44.9 Chronic obstructive pulmonary disease, unspecified; I25.10 Atherosclerotic heart disease of native coronary artery without angina pectoris; E78.5 Hyperlipidemia, unspecified; I11.0 Hypertensive heart disease with heart failure; F32.A Depression, unspecified; I50.9 Heart failure, unspecified; F41.9 Anxiety disorder, unspecified; M10.9 Gout, unspecified; G89.4 Chronic pain syndrome; Z20.822 Contact with and (suspected) exposure to COVID-19; K21.9 Gastro-esophageal reflux disease without esophagitis; Z82.49 Family history of ischemic heart disease and other diseases of the circulatory system; I25.2 Old myocardial infarction; Z83.3 Family history of diabetes mellitus; Z87.442 Personal history of urinary calculi; Z88.5 Allergy status to narcotic agent; Z88.1 Allergy status to other antibiotic agents; Z90.710 Acquired absence of both cervix and uterus; Z95.1 Presence of aortocoronary bypass graft; Y92.89 Other specified places as the place of occurrence of the external cause
CPT/HCPCS: 36415; 70450; 71045; 80053; 80307; 81001; 82550; 83605; 83880; 84484; 85025; 87040; 87426; 93005; 94640; 96361; 96374; G0378

== ENCOUNTER 2022-08-04 16:51 | Inpatient (IN) | payer MEDICARE, MEDICAID ==
[~2022-08-04] VITALS: Ht 167.6 cm; Wt 74.4 kg
[2022-08-04] MEDS ORDERED: IPRATROPIUM BROM 0.5 MG/2.5ML INH SOL NEB ONE (18:15)
[2022-08-04] MEDS ORDERED: ONDANSETRON HCL 4 MG/2 ML VIAL IV ONE ×2 (18:30→23:30)
[2022-08-04] MEDS ORDERED: MORPHINE SULFATE 4 MG/ML SYR/VIAL IV ONE ×2 (18:30→23:30)
[2022-08-04 18:36] LABS: Basophils # (auto) 0.1 10 ^3/uL (0-0.2); Basophils % (auto) 1.2 % (0.0-2.0); Eosinophils # (auto) 0.2 10 ^3/uL (0-0.8); Eosinophils % (auto) 3.5 % (0.0-7.0); Hematocrit 41.1 % (36.0-46.0); Hemoglobin 13.8 g/dL (12.2-16.2); Lymphocytes # (auto) 1.7 10 ^3/uL (0.4-5.4); Lymphocytes % (auto) 26.6 % (10.0-50.0); Mean Corpuscular Hemoglobin 28.6 pg (28.0-32.0); Mean Corpuscular Hgb Conc. 33.6 g/dL (32.0-36.0); Mean Corpuscular Volume 85.2 fL (80.0-100.0); Monocytes # (auto) 0.8 10 ^3/uL (0-1.3); Monocytes % (auto) 12.1 % (0.0-12.0); Neutrophils # (auto) 3.7 10 ^3/uL (1.6-8.6); Neutrophils % (auto) 56.6 % (37.0-80.0); Red Blood Cells 4.83 10^6/uL (4.0-5.20); Red Cell Distribution Width 13.5 % (11.8-14.3); White Blood Cell 6.6 10^3/uL (4.4-10.8)
[2022-08-04 19:01] LABS: Albumin 3.3 g/dL (3.4-5.0); BUN/Creatinine Ratio 18.2; Calcium 8.6 mg/dL (8.5-10.1); Potassium 3.7 mmol/L (3.5-5.1)
[2022-08-04 19:04] LABS: Total Protein 6.7 g/dL (6.4-8.2)
[2022-08-04 22:44] LABS: Urine Bacteria NONE SEEN /hpf (None Seen); Urine Blood Negative /uL (Negative); Urine Hyaline Cast FEW /lpf (0 - 2); Urine Mucus FEW (None Seen); Urine Specific Gravity 1.017 (1.001-1.035); Urine WBC 1 /hpf (0 - 5)
[2022-08-05] MEDS ORDERED: MORPHINE SULFATE INJ 2 MG/ml SYRG IV PRN
[2022-08-05] MEDS ORDERED: IBUPROFEN 600 MG TAB PO PRN
[2022-08-05] MEDS ORDERED: IPRATROPIUM BROM 0.5 MG/2.5ML INH SOL NEB PRN
[2022-08-05] MEDS ORDERED: NITROGLYCERIN 0.4 MG SL TAB SL PRN
[2022-08-05] MEDS ORDERED: ALBUTEROL SULF 2.5 MG/0.5ML(0.5%) NEB SOLN NEB PRN
[2022-08-05 00:41] VITALS: BP 137/75
[2022-08-05] MEDS: D5W/SOD CHLO 0.9% 1,000 ML IV SCH ×2 (01:30→14:25)
[2022-08-05 05:26] LABS: Basophils # (auto) 0.1 10 ^3/uL (0-0.2); Basophils % (auto) 0.8 % (0.0-2.0); Eosinophils # (auto) 0.3 10 ^3/uL (0-0.8); Eosinophils % (auto) 4.5 % (0.0-7.0); Hematocrit 38.3 % (36.0-46.0); Hemoglobin 13.1 g/dL (12.2-16.2); Lymphocytes # (auto) 1.8 10 ^3/uL (0.4-5.4); Lymphocytes % (auto) 28.6 % (10.0-50.0); Mean Corpuscular Hgb Conc. 34.1 g/dL (32.0-36.0); Mean Corpuscular Volume 85.1 fL (80.0-100.0); Monocytes # (auto) 0.8 10 ^3/uL (0-1.3); Monocytes % (auto) 12.7 % (0.0-12.0); Neutrophils # (auto) 3.4 10 ^3/uL (1.6-8.6); Neutrophils % (auto) 53.4 % (37.0-80.0); Nucleated Red Blood Cells % 0.2 %; Red Cell Distribution Width 13.4 % (11.8-14.3); White Blood Cell 6.3 10^3/uL (4.4-10.8)
[2022-08-05 05:34] LABS: Potassium 3.6 mmol/L (3.5-5.1)
[2022-08-05 05:39] LABS: Albumin 2.9 g/dL (3.4-5.0); Calcium 8.5 mg/dL (8.5-10.1)
[2022-08-05] MEDS: ONDANSETRON HCL 4 MG/2 ML VIAL IV PRN ×3 (05:46→20:47)
[2022-08-05] MEDS: MORPHINE SULFATE INJ 2 MG/ml SYRG IV PRN ×4 (05:47→20:47)
[2022-08-05] MEDS: FAMOTIDINE (10MG/ML) 2ML VL IV SCH (11:11)
[2022-08-05] MEDS: ASPirin 81 mg TAB PO SCH (11:11)
[2022-08-05] MEDS: CARVEDILOL 3.125 MG TAB PO SCH ×2 (11:12→22:39)
[2022-08-05] MEDS ORDERED: DICYCLOMINE HCL 10 MG CAP PO ONE (16:30)
[2022-08-05 22:00] VITALS: BP 133/73
[2022-08-05] MEDS ORDERED: ATORVASTATIN 20 MG TAB PO SCH (22:00)
[2022-08-05] MEDS: DOCUSATE SOD 100 MG CAP PO SCH (22:39)
[2022-08-06] MEDS: ONDANSETRON HCL 4 MG/2 ML VIAL IV PRN ×2 (03:48→09:23)
[2022-08-06] MEDS: MORPHINE SULFATE INJ 2 MG/ml SYRG IV PRN ×3 (03:57→13:44)
[2022-08-06] MEDS: D5W/SOD CHLO 0.9% 1,000 ML IV SCH (03:58)
[2022-08-06 05:00] VITALS: BP 121/73
[2022-08-06 06:20] LABS: Basophils # (auto) 0.1 10 ^3/uL (0-0.2); Eosinophils # (auto) 0.3 10 ^3/uL (0-0.8); Eosinophils % (auto) 4.3 % (0.0-7.0); Hematocrit 38.9 % (36.0-46.0); Hemoglobin 13.9 g/dL (12.2-16.2); Lymphocytes # (auto) 1.3 10 ^3/uL (0.4-5.4); Lymphocytes % (auto) 20.5 % (10.0-50.0); Mean Corpuscular Hemoglobin 29.4 pg (28.0-32.0); Mean Corpuscular Hgb Conc. 35.8 g/dL (32.0-36.0); Mean Corpuscular Volume 82.1 fL (80.0-100.0); Monocytes # (auto) 0.6 10 ^3/uL (0-1.3); Monocytes % (auto) 10.2 % (0.0-12.0); Nucleated Red Blood Cells % 0.3 %; Red Blood Cells 4.74 10^6/uL (4.0-5.20); Red Cell Distribution Width 13.1 % (11.8-14.3); White Blood Cell 6.2 10^3/uL (4.4-10.8)
[2022-08-06 06:38] LABS: Potassium 3.8 mmol/L (3.5-5.1)
[2022-08-06 06:47] LABS: Albumin 3.1 g/dL (3.4-5.0); BUN/Creatinine Ratio 20.2; Calcium 9.1 mg/dL (8.5-10.1)
[2022-08-06 06:49] LABS: Bilirubin, Total 1.3 mg/dL (0.2-1.0); Total Protein 6.4 g/dL (6.4-8.2)
[2022-08-06 08:00] VITALS: BP 126/70
[2022-08-06 09:00] VITALS: BP 126/70
[2022-08-06] MEDS: FAMOTIDINE (10MG/ML) 2ML VL IV SCH (09:07)
[2022-08-06] MEDS: ASPirin 81 mg TAB PO SCH (09:07)
[2022-08-06] MEDS: CARVEDILOL 3.125 MG TAB PO SCH (09:09)
[2022-08-06] MEDS: DOCUSATE SOD 100 MG CAP PO SCH (09:09)
[2022-08-06 13:00] VITALS: BP 131/69
[2022-08-06 14:07] VITALS: BP 131/69
[2022-08-06 15:00] VITALS: BP 131/69
== END 2022-08-06 15:50 | DRG 392 ==
LOC: ER 16:51 → EDBD 16:51 → OVERFLOW 08-05 00:11 → TELE 08-05 01:29 → TELE-WESTW 08-05 21:31
PROVIDERS: ADMIT Nurse Practitioner Family; ATTEND Internal Medicine Pulmonary Disease
DX: R10.9 Unspecified abdominal pain (principal); N39.0 Urinary tract infection, site not specified; E88.09 Other disorders of plasma-protein metabolism, not elsewhere classified; Z20.822 Contact with and (suspected) exposure to COVID-19; F32.A Depression, unspecified; I50.9 Heart failure, unspecified; K21.9 Gastro-esophageal reflux disease without esophagitis; K20.0 Eosinophilic esophagitis; M10.9 Gout, unspecified; F41.9 Anxiety disorder, unspecified; G89.4 Chronic pain syndrome; N20.0 Calculus of kidney; E78.5 Hyperlipidemia, unspecified; J44.9 Chronic obstructive pulmonary disease, unspecified
CPT/HCPCS: 36415; 51702; 71045; 74176; 80053; 81001; 84484; 85025; 87081; 87426; 93005; 94640; 96374; 96375; 96376; G0378; J2405; J3490; J7042

== ENCOUNTER 2022-11-07 17:44 | Inpatient (IN) | payer MEDICARE, MEDICAID ==
[~2022-11-07] VITALS: Ht 162.6 cm; Wt 70.0 kg
[~2022-11-07 17:44] MED LIST changes: -ALBUAER3 IN; +POTA-228 PO; -POTA10TA32 PO
[2022-11-07] MEDS ORDERED: LACTATED RINGER'S 1,000 ML IV ONE (19:45)
[2022-11-07] MEDS ORDERED: MORPHINE SULFATE 4 MG/ML SYR/VIAL IV ONE (22:45)
[2022-11-07] MEDS ORDERED: ONDANSETRON HCL 4 MG/2 ML VIAL IV ONE (22:45)
[2022-11-08 00:27] LABS: Basophils # (auto) 0.1 10 ^3/uL (0-0.2); Basophils % (auto) 0.5 % (0.0-2.0); Eosinophils # (auto) 0.4 10 ^3/uL (0-0.8); Eosinophils % (auto) 2.6 % (0.0-7.0); Hematocrit 43.3 % (36.0-46.0); Hemoglobin 14.3 g/dL (12.2-16.2); Lymphocytes # (auto) 4.9 10 ^3/uL (0.4-5.4); Lymphocytes % (auto) 32.5 % (10.0-50.0); Mean Corpuscular Hemoglobin 28.5 pg (28.0-32.0); Mean Corpuscular Volume 86.4 fL (80.0-100.0); Monocytes # (auto) 1.3 10 ^3/uL (0-1.3); Monocytes % (auto) 8.6 % (0.0-12.0); Neutrophils # (auto) 8.4 10 ^3/uL (1.6-8.6); Neutrophils % (auto) 55.8 % (37.0-80.0); Nucleated Red Blood Cells % 0.1 %; Red Blood Cells 5.01 10^6/uL (4.0-5.20); Red Cell Distribution Width 14.8 % (11.8-14.3); White Blood Cell 15.1 10^3/uL (4.4-10.8)
[2022-11-08 00:56] LABS: Magnesium 2.4 mg/dL (1.6-2.6)
[2022-11-08] MEDS ORDERED: HYDROmorphone HCL 2 MG/ML VL/or syr IV ONE ×2 (01:00→05:30)
[2022-11-08 01:03] LABS: Potassium 4.6 mmol/L (3.5-5.1)
[2022-11-08 01:04] LABS: CRP High Sensitivity 0.425 mg/dL (< 0.3); Total Protein 7.7 g/dL (6.4-8.2)
[2022-11-08 01:15] LABS: BUN/Creatinine Ratio 26.6 (10.0-20.0)
[2022-11-08 01:20] LABS: Bilirubin, Total 0.8 mg/dL (0.2-1.0)
[2022-11-08] MEDS ORDERED: LACTATED RINGER'S 1,000 ML IV ONE (01:45)
[2022-11-08] MEDS ORDERED: VANCOMYCIN 1GM/250ML 250 ML IV ONE (01:45)
[2022-11-08 02:31] LABS: Urine Bacteria NONE SEEN /hpf (None Seen); Urine Blood Negative /uL (Negative); Urine Hyaline Cast FEW /lpf (0 - 2); Urine Specific Gravity 1.014 (1.001-1.035); Urine WBC <1 /hpf (0 - 5)
[2022-11-08] MEDS: PIPERACILLIN-TAZOB 3.375GM 100 ML IV ONE ×2 (06:02→09:21)
[2022-11-08] MEDS ORDERED: ACETAMINOPHEN 325 MG TAB PO PRN (06:45)
[2022-11-08] MEDS ORDERED: HYDROcodone-ACET 5/325MG TAB PO PRN (06:45)
[2022-11-08] MEDS ORDERED: DOCUSATE SOD 100 MG CAP PO PRN (06:45)
[2022-11-08] MEDS ORDERED: SODIUM CHLORIDE 0.9% 1,000 ML IV ONE (07:00)
[2022-11-08] MEDS: ENOXAPARIN SOD 40 MG/0.4 ML SYRINGE SC SCH ×2 (08:21→08:24)
[2022-11-08] MEDS ORDERED: cefTRIAXone 1GM/50ML D5W 50 ML IV SCH (09:00)
[2022-11-08] MEDS ORDERED: ATORVASTATIN 20 MG TAB PO SCH (10:00)
[2022-11-08] MEDS ORDERED: FLUoxetine HCL 20 MG CAP PO SCH (10:00)
[2022-11-08] MEDS ORDERED: AZITHROMYCIN 500MG/ 250ML 250 ML IV SCH (10:00)
[2022-11-08] MEDS ORDERED: CARVEDILOL 3.125 MG TAB PO SCH (10:00)
[2022-11-08] MEDS: MORPHINE SULFATE INJ 2 MG/ml SYRG IV PRN ×2 (13:14→18:05)
[2022-11-08] MEDS: ONDANSETRON HCL 4 MG/2 ML VIAL IV PRN ×2 (13:15→18:05)
[2022-11-08 14:38] LABS: INR 1.07 (0.9-1.15)
[2022-11-08 19:37] VITALS: BP 123/61
== END 2022-11-08 19:39 | DRG 314 ==
LOC: EDBD 17:44 → EDUNIT# 17:44 → ER 17:44 → OVERFLOW 11-08 06:43
PROVIDERS: ADMIT Internal Medicine; ATTEND Internal Medicine Pulmonary Disease
PROC: 05H933Z Insertion of Infusion Device into Right Brachial Vein, Percutaneous Approach (ICD-10-PCS; principal; 2022-11-08)
PROC: B54MZZA Ultrasonography of Right Upper Extremity Veins, Guidance (ICD-10-PCS; 2022-11-08)
DX: T82.514A Breakdown (mechanical) of infusion catheter, initial encounter (principal); J15.6 Pneumonia due to other Gram-negative bacteria; I13.0 Hypertensive heart and chronic kidney disease with heart failure and stage 1 through stage 4 chronic kidney disease, or unspecified chronic kidney disease; J44.0 Chronic obstructive pulmonary disease with (acute) lower respiratory infection; N17.9 Acute kidney failure, unspecified; N39.0 Urinary tract infection, site not specified; Z16.12 Extended spectrum beta lactamase (ESBL) resistance; E87.8 Other disorders of electrolyte and fluid balance, not elsewhere classified; I25.10 Atherosclerotic heart disease of native coronary artery without angina pectoris; Z20.822 Contact with and (suspected) exposure to COVID-19; Y83.8 Other surgical procedures as the cause of abnormal reaction of the patient, or of later complication, without mention of misadventure at the time of the procedure; I50.9 Heart failure, unspecified; N18.9 Chronic kidney disease, unspecified; N20.0 Calculus of kidney; F32.A Depression, unspecified; F41.9 Anxiety disorder, unspecified; K21.9 Gastro-esophageal reflux disease without esophagitis; M10.9 Gout, unspecified; Z82.49 Family history of ischemic heart disease and other diseases of the circulatory system; Z83.3 Family history of diabetes mellitus; Z87.01 Personal history of pneumonia (recurrent); Z87.442 Personal history of urinary calculi; Z90.710 Acquired absence of both cervix and uterus; Z95.1 Presence of aortocoronary bypass graft; Z90.49 Acquired absence of other specified parts of digestive tract; Z88.1 Allergy status to other antibiotic agents; Z88.5 Allergy status to narcotic agent; Y92.89 Other specified places as the place of occurrence of the external cause
CPT/HCPCS: 36415; 74176; 80053; 81001; 83605; 83690; 83735; 85025; 85610; 85652; 86141; 87040; 87426; 96361; 96365; 96375; 96376; G0378; J0696; J2405; J2543

== ENCOUNTER 2023-01-02 17:30 | Inpatient (IN) | payer MEDICARE, MEDICAID ==
[~2023-01-02] VITALS: Ht 162.6 cm; Wt 81.4 kg
[2023-01-02 19:35] VITALS: PULSE 67; RESP 9; O2SAT 95
[2023-01-02 21:01] LABS: Basophils # (auto) 0.1 10 ^3/uL (0-0.2); Basophils % (auto) 0.9 % (0.0-2.0); Eosinophils # (auto) 0.3 10 ^3/uL (0-0.8); Eosinophils % (auto) 2.5 % (0.0-7.0); Hematocrit 35.4 % (36.0-46.0); Hemoglobin 11.5 g/dL (12.2-16.2); Lymphocytes # (auto) 1.5 10 ^3/uL (0.4-5.4); Lymphocytes % (auto) 14.2 % (10.0-50.0); Mean Corpuscular Hemoglobin 27.9 pg (28.0-32.0); Mean Corpuscular Hgb Conc. 32.5 g/dL (32.0-36.0); Monocytes # (auto) 0.8 10 ^3/uL (0-1.3); Monocytes % (auto) 8.2 % (0.0-12.0); Neutrophils # (auto) 7.7 10 ^3/uL (1.6-8.6); Neutrophils % (auto) 74.2 % (37.0-80.0); Nucleated Red Blood Cells % 0.1 %; Red Blood Cells 4.11 10^6/uL (4.0-5.20); Red Cell Distribution Width 16.9 % (11.8-14.3); White Blood Cell 10.3 10^3/uL (4.4-10.8)
[2023-01-02 21:17] LABS: Albumin 2.6 g/dL (3.4-5.0); Calcium 8.2 mg/dL (8.5-10.1); Potassium 4.1 mmol/L (3.5-5.1)
[2023-01-02 21:21] LABS: BUN/Creatinine Ratio 33.3 (10.0-20.0); Bilirubin, Total 0.5 mg/dL (0.2-1.0); Total Protein 5.8 g/dL (6.4-8.2)
[2023-01-02 21:32] LABS: Prothrombin Time 10.5 sec (9.3-11.8)
[2023-01-02] MEDS ORDERED: ASPirin-EC 325mg tab PO ONE (22:30)
[2023-01-02] MEDS ORDERED: CARV3.1240 PO (23:14)
[2023-01-02] MEDS ORDERED: IPRATROPIUM BROM 0.5 MG/2.5ML INH SOL NEB PRN (23:15)
[2023-01-02] MEDS ORDERED: ALBUTEROL SULF 2.5 MG/0.5ML(0.5%) NEB SOLN NEB PRN (23:15)
[2023-01-02] MEDS ORDERED: SODIUM CHLORIDE 0.9% 1,000 ML IV ONE (23:15)
[2023-01-02] MEDS ORDERED: NITROGLYCERIN 0.4 MG SL TAB SL PRN (23:15)
[2023-01-02] MEDS ORDERED: MORPHINE SULFATE INJ 2 MG/ml SYRG IV PRN (23:15)
[2023-01-02] MEDS ORDERED: FUROSEMIDE 20 MG/2 ML VIAL IV ONE (23:15)
[2023-01-02 23:17] VITALS: BP 125/60; PULSE 77; RESP 16; TEMP 98.1; O2SAT 98
[2023-01-02] MEDS ORDERED: methylPREDNISolone SOD SUCC 40 MG/ML VL IV ONE (23:30)
[2023-01-03] VITALS (10 sets, daily range): BP systolic 141; BP diastolic 76; PULSE 61–78; RESP 10–18; TEMP 97.9; O2SAT 92–100
[2023-01-03] MEDS ORDERED: methylPREDNISolone SOD SUCC 125 MG/2 ML VL ONE (00:20)
[2023-01-03 00:37] LABS: Rapid Influenza A Negative (Negative); Rapid Influenza B Negative (Negative)
[2023-01-03 00:38] LABS: COVID19 ANTIGEN SOFIA FIA NEGATIVE (NEGATIVE)
[2023-01-03] MEDS: MORPHINE SULFATE INJ 2 MG/ml SYRG IV PRN ×3 (01:37→23:53)
[2023-01-03] MEDS: ALBUTEROL SULF 2.5 MG/0.5ML(0.5%) NEB SOLN NEB SCH ×3 (06:42→18:19)
[2023-01-03] MEDS: IPRATROPIUM BROM 0.5 MG/2.5ML INH SOL NEB SCH ×3 (06:42→18:19)
[2023-01-03 06:54] LABS: Potassium 4.3 mmol/L (3.5-5.1)
[2023-01-03 07:00] LABS: Albumin 2.7 g/dL (3.4-5.0); BUN/Creatinine Ratio 31.8 (10.0-20.0); Bilirubin, Total 0.6 mg/dL (0.2-1.0); Calcium 8.4 mg/dL (8.5-10.1); Total Protein 6.2 g/dL (6.4-8.2)
[2023-01-03 07:14] LABS: Hematocrit 38.3 % (36.0-46.0); Hemoglobin 12.5 g/dL (12.2-16.2); Mean Corpuscular Hemoglobin 29.3 pg (28.0-32.0); Mean Corpuscular Hgb Conc. 32.7 g/dL (32.0-36.0); Mean Corpuscular Volume 89.7 fL (80.0-100.0); Red Blood Cells 4.27 10^6/uL (4.0-5.20); Red Cell Distribution Width 16.9 % (11.8-14.3); White Blood Cell 10.8 10^3/uL (4.4-10.8)
[2023-01-03 07:21] LABS: Basophils % (manual) 0 (0.0-2.0); Blast Cells 0; Myelocytes % 0; Promyelocytes % 0; Reactive Lymphocytes 0
[2023-01-03 09:42] LABS: Band Neutrophils % (manual) 8
[2023-01-03 09:43] LABS: Eosinophils % (manual) 1 (0-7); Lymphocytes % (manual) 14 (10.0-50.0); Metamyelocytes % 1; Monocytes % (manual) 4 (0-12)
[2023-01-03 09:44] LABS: Anisocytosis Slight; Platelet Estimate Adequate
[2023-01-03] MEDS ORDERED: methylPREDNISolone SOD SUCC 40 MG/ML VL IV SCH (10:00)
[2023-01-03] MEDS: FUROSEMIDE 20 MG/2 ML VIAL IV SCH (10:07)
[2023-01-03] MEDS: PANTOPRAZOLE 40 MG/10 ML VIAL INJ IV SCH (10:07)
[2023-01-03] MEDS: CARVEDILOL 3.125 MG TAB PO SCH ×2 (10:07→23:29)
[2023-01-03] MEDS: ASPirin-EC 81 mg tab PO SCH (10:08)
[2023-01-03] MEDS: ENOXAPARIN SOD 30 MG/0.3 ML SYRINGE SC SCH (10:08)
[2023-01-03] MEDS: ATORVASTATIN 20 MG TAB PO SCH (10:08)
[2023-01-03] MEDS ORDERED: methylPREDNISolone SOD SUCC 125 MG/2 ML VL IV ONE (10:30)
[2023-01-04] VITALS (11 sets, daily range): BP systolic 119–137; BP diastolic 58–83; PULSE 61–71; RESP 16–19; TEMP 96.8–97.9; O2SAT 92–99
[2023-01-04 01:19] LABS: Urine Bacteria NONE SEEN /hpf (None Seen); Urine Blood Negative /uL (Negative); Urine Clarity Clear (Clear); Urine Color Yellow (Yellow); Urine Protein, UAD Negative (Negative); Urine Specific Gravity 1.021 (1.001-1.035); Urine Urobilinogen Normal (Negative); Urine WBC 1 /hpf (0 - 5); Urine pH 6.5 (5.0-8.0)
[2023-01-04 05:20] LABS: BUN/Creatinine Ratio 32.7 (10.0-20.0); Calcium 8.2 mg/dL (8.5-10.1); Potassium 3.7 mmol/L (3.5-5.1)
[2023-01-04] MEDS: IPRATROPIUM BROM 0.5 MG/2.5ML INH SOL NEB SCH ×2 (07:14→11:53)
[2023-01-04] MEDS: ALBUTEROL SULF 2.5 MG/0.5ML(0.5%) NEB SOLN NEB SCH ×2 (07:15→11:53)
[2023-01-04] MEDS: PANTOPRAZOLE 40 MG/10 ML VIAL INJ IV SCH (09:14)
[2023-01-04] MEDS: ATORVASTATIN 20 MG TAB PO SCH (09:14)
[2023-01-04] MEDS: ASPirin-EC 81 mg tab PO SCH (09:14)
[2023-01-04] MEDS: FUROSEMIDE 20 MG/2 ML VIAL IV SCH (09:15)
[2023-01-04] MEDS: CARVEDILOL 3.125 MG TAB PO SCH (09:15)
[2023-01-04] MEDS: ENOXAPARIN SOD 30 MG/0.3 ML SYRINGE SC SCH (09:16)
[2023-01-04] MEDS ORDERED: methylPREDNISolone SOD SUCC 125 MG/2 ML VL IV SCH (10:00)
[2023-01-04] MEDS: KETOROLAC TROMETH 30 MG/ML 1ML VIAL IV ONE ×2 (10:42→10:47)
== END 2023-01-04 17:00 | DRG 189 ==
LOC: EDUNIT# 17:30 → ER 17:30 → EDBD 17:30 → TELE 23:14 → TELE-CENTR 01-03 21:28
PROVIDERS: ADMIT Nurse Practitioner Acute Care; ATTEND Nurse Practitioner Acute Care
DX: J96.21 Acute and chronic respiratory failure with hypoxia (principal); I21.A1 Myocardial infarction type 2; E43 Unspecified severe protein-calorie malnutrition; I50.43 Acute on chronic combined systolic (congestive) and diastolic (congestive) heart failure; G93.41 Metabolic encephalopathy; N17.9 Acute kidney failure, unspecified; J44.1 Chronic obstructive pulmonary disease with (acute) exacerbation; N39.0 Urinary tract infection, site not specified; I11.0 Hypertensive heart disease with heart failure; I25.10 Atherosclerotic heart disease of native coronary artery without angina pectoris; K21.9 Gastro-esophageal reflux disease without esophagitis; Z20.822 Contact with and (suspected) exposure to COVID-19; G89.29 Other chronic pain; F32.A Depression, unspecified; M10.9 Gout, unspecified; F17.210 Nicotine dependence, cigarettes, uncomplicated; E78.5 Hyperlipidemia, unspecified; F41.9 Anxiety disorder, unspecified; E66.01 Morbid (severe) obesity due to excess calories; Z68.30 Body mass index [BMI] 30.0-30.9, adult; Z95.0 Presence of cardiac pacemaker; Z95.1 Presence of aortocoronary bypass graft; Z88.1 Allergy status to other antibiotic agents; Z88.5 Allergy status to narcotic agent; Z88.8 Allergy status to other drugs, medicaments and biological substances; Z87.440 Personal history of urinary (tract) infections; Z79.891 Long term (current) use of opiate analgesic; Z83.3 Family history of diabetes mellitus; Z87.442 Personal history of urinary calculi; Z88.6 Allergy status to analgesic agent; Z90.710 Acquired absence of both cervix and uterus
CPT/HCPCS: 36415; 71045; 74176; 80048; 80053; 81001; 83880; 84484; 85007; 85027; 85379; 85610; 87081; 87426; 87804; 93005; 93306; 94640; 97163; C9113; G0378; J1885

== ENCOUNTER 2023-01-19 08:20 | Emergency (ER) | payer MEDICARE, MEDICAID ==
[~2023-01-19] VITALS: Ht 157.5 cm; Wt 70.0 kg
[~2023-01-19 08:20] MED LIST changes: +CARV3.1240 PO
[2023-01-19 13:00] VITALS: O2SAT 95
[2023-01-19 13:18] LABS: Hematocrit 39.5 % (36.0-46.0); Hemoglobin 12.9 g/dL (12.2-16.2); Mean Corpuscular Hemoglobin 27.8 pg (28.0-32.0); Mean Corpuscular Hgb Conc. 32.5 g/dL (32.0-36.0); Mean Corpuscular Volume 85.4 fL (80.0-100.0); Red Blood Cells 4.63 10^6/uL (4.0-5.20); Red Cell Distribution Width 17.3 % (11.8-14.3); White Blood Cell 8.2 10^3/uL (4.4-10.8)
[2023-01-19 13:19] LABS: INR 1.01 (0.9-1.15); Partial Thromboplastin Time 27.4 SEC (24.5-34.5); Prothrombin Time 10.6 sec (9.3-11.8)
[2023-01-19 13:21] LABS: Basophils % (manual) 0 (0.0-2.0); Blast Cells 0; Eosinophils % (manual) 0 (0-7); Metamyelocytes % 0; Myelocytes % 0; Promyelocytes % 0; Reactive Lymphocytes 0
[2023-01-19 13:46] LABS: Band Neutrophils % (manual) 1; Lymphocytes % (manual) 26 (10.0-50.0); Monocytes % (manual) 9 (0-12)
[2023-01-19 13:47] LABS: Platelet Estimate Adequate
[2023-01-19 16:00] VITALS: BP 132/66; PULSE 82; RESP 16; O2SAT 95
[2023-01-19] MEDS ORDERED: LIDOCAINE 1% (LOCAL ANESTH.) PF 5ml SDV ID ONE (18:15)
[2023-01-19] MEDS ORDERED: SODIUM CHLOR 0.9% PF (SALINE LOCK) 10ML VIAL/SYR IV SCH (22:00)
== END 2023-01-19 18:13 | disposition home or self-care (01) ==
LOC: ER 08:20 → EDBD 08:20 → ER 18:13
DX: Z45.2 Encounter for adjustment and management of vascular access device (principal); F41.9 Anxiety disorder, unspecified; I25.10 Atherosclerotic heart disease of native coronary artery without angina pectoris; I11.0 Hypertensive heart disease with heart failure; I50.9 Heart failure, unspecified; J44.9 Chronic obstructive pulmonary disease, unspecified; F32.9 Major depressive disorder, single episode, unspecified; K21.9 Gastro-esophageal reflux disease without esophagitis; M10.9 Gout, unspecified; E78.5 Hyperlipidemia, unspecified; I25.2 Old myocardial infarction; F17.210 Nicotine dependence, cigarettes, uncomplicated; Z87.442 Personal history of urinary calculi; Z90.710 Acquired absence of both cervix and uterus; Z90.49 Acquired absence of other specified parts of digestive tract; Z98.890 Other specified postprocedural states; Z88.5 Allergy status to narcotic agent; Z88.8 Allergy status to other drugs, medicaments and biological substances; Z79.899 Other long term (current) drug therapy
CPT/HCPCS: 36415; 36569; 71045; 85007; 85027; 85610; 85730; 99285; C1751; J7050

== ENCOUNTER 2023-03-30 01:40 | Inpatient (IN) | payer MEDICARE, MEDICAID ==
[~2023-03-30] VITALS: Ht 170.2 cm; Wt 86.2 kg
[2023-03-30 02:57] LABS: Basophils # (auto) 0.1 10 ^3/uL (0-0.2); Basophils % (auto) 0.9 % (0.0-2.0); Eosinophils # (auto) 0.3 10 ^3/uL (0-0.8); Eosinophils % (auto) 2.1 % (0.0-7.0); Hematocrit 35.8 % (36.0-46.0); Hemoglobin 11.6 g/dL (12.2-16.2); Lymphocytes # (auto) 2.1 10 ^3/uL (0.4-5.4); Lymphocytes % (auto) 17.1 % (10.0-50.0); Mean Corpuscular Hemoglobin 27.1 pg (28.0-32.0); Mean Corpuscular Hgb Conc. 32.5 g/dL (32.0-36.0); Mean Corpuscular Volume 83.4 fL (80.0-100.0); Monocytes # (auto) 1.2 10 ^3/uL (0-1.3); Monocytes % (auto) 9.2 % (0.0-12.0); Neutrophils # (auto) 8.8 10 ^3/uL (1.6-8.6); Neutrophils % (auto) 70.7 % (37.0-80.0); Red Blood Cells 4.29 10^6/uL (4.0-5.20); Red Cell Distribution Width 15.8 % (11.8-14.3); White Blood Cell 12.5 10^3/uL (4.4-10.8)
[2023-03-30 02:58] VITALS: PULSE 67; RESP 14; O2SAT 96
[2023-03-30 03:05] LABS: Alkaline Phosphatase 78 U/L (46-116); Anion Gap 6 (5-15); Aspartate Aminotransferase 18 U/L (13-40); BUN/Creatinine Ratio 22.4 (10.0-20.0); Blood Urea Nitrogen 22 mg/dL (9-23); Calcium 9.2 mg/dL (8.5-10.1); Carbon Dioxide 28 mmol/L (20-30); Chloride 108 mmol/L (98-107); Glucose 99 mg/dL (74-106); Potassium 4.3 mmol/L (3.5-5.1); Sodium 142 mmol/L (136-145)
[2023-03-30 03:06] LABS: Albumin 3.8 g/dL (3.2-4.8); Bilirubin, Total 0.5 mg/dL (0.2-1.0); Total Protein 5.9 g/dL (5.7-8.2)
[2023-03-30 03:15] LABS: Alanine Aminotransferase 9 U/L (7-40)
[2023-03-30 03:17] LABS: INR 1.05 (0.9-1.15); Partial Thromboplastin Time 30.6 SEC (24.5-34.5)
[2023-03-30] MEDS ORDERED: ONDANSETRON HCL 4 MG/2 ML VIAL IV ONE ×2 (04:15→05:45)
[2023-03-30] MEDS ORDERED: HYDROmorphone HCL 2 MG/ML VL/or syr IV ONE ×2 (04:15→05:45)
[2023-03-30 04:39] LABS: Magnesium 1.9 mg/dL (1.6-2.6)
[2023-03-30 08:00] VITALS: PULSE 62; RESP 12; O2SAT 97
[2023-03-30] MEDS ORDERED: SODIUM CHLORIDE 0.9% 1,000 ML IV ONE ×2 (08:30→11:05)
[2023-03-30 10:05] LABS: Basophils # (auto) 0 10 ^3/uL (0-0.2); Basophils % (auto) 0.5 % (0.0-2.0); Eosinophils # (auto) 0.3 10 ^3/uL (0-0.8); Eosinophils % (auto) 3.1 % (0.0-7.0); Hematocrit 34.9 % (36.0-46.0); Hemoglobin 11.5 g/dL (12.2-16.2); Lymphocytes # (auto) 2.1 10 ^3/uL (0.4-5.4); Lymphocytes % (auto) 26.4 % (10.0-50.0); Mean Corpuscular Hemoglobin 27.6 pg (28.0-32.0); Mean Corpuscular Volume 83.7 fL (80.0-100.0); Monocytes # (auto) 1.1 10 ^3/uL (0-1.3); Monocytes % (auto) 13.8 % (0.0-12.0); Neutrophils # (auto) 4.5 10 ^3/uL (1.6-8.6); Neutrophils % (auto) 56.2 % (37.0-80.0); Nucleated Red Blood Cells % 0.1 %; Red Blood Cells 4.17 10^6/uL (4.0-5.20); Red Cell Distribution Width 16.3 % (11.8-14.3); White Blood Cell 8.1 10^3/uL (4.4-10.8)
[2023-03-30 10:23] LABS: Alanine Aminotransferase < 9 U/L (7-40); Albumin 3.5 g/dL (3.2-4.8); Alkaline Phosphatase 77 U/L (46-116); Anion Gap 4 (5-15); Aspartate Aminotransferase 14 U/L (13-40); BUN/Creatinine Ratio 20.5 (10.0-20.0); Bilirubin, Total 0.6 mg/dL (0.2-1.0); Blood Urea Nitrogen 25 mg/dL (9-23); Calcium 8.6 mg/dL (8.7-10.4); Carbon Dioxide 30 mmol/L (20-30); Chloride 109 mmol/L (98-107); Glucose 82 mg/dL (74-106); Magnesium 1.9 mg/dL (1.6-2.6); Potassium 4.2 mmol/L (3.5-5.1); Sodium 143 mmol/L (136-145); Total Protein 5.5 g/dL (5.7-8.2)
[2023-03-30 12:14] LABS: Urine Bacteria NONE SEEN /hpf (None Seen); Urine Blood Negative /uL (Negative); Urine Clarity Clear (Clear); Urine Color Yellow (Yellow); Urine Hyaline Cast FEW /lpf (0 - 2); Urine Protein, UAD Negative (Negative); Urine Specific Gravity 1.016 (1.001-1.035); Urine Urobilinogen Normal (Negative); Urine WBC <1 /hpf (0 - 5); Urine pH 5.5 (5.0-8.0)
[2023-03-30] MEDS ORDERED: AZITHROMYCIN 500MG/ 250ML 250 ML IV ONE (13:45)
[2023-03-30] MEDS ORDERED: ACETAMINOPHEN 325 MG TAB PO PRN (13:45)
[2023-03-30] MEDS ORDERED: NITROGLYCERIN 0.4 MG SL TAB SL PRN (13:45)
[2023-03-30] MEDS ORDERED: MORPHINE SULFATE INJ 2 MG/ml SYRG IV PRN (13:45)
[2023-03-30] MEDS ORDERED: cefTRIAXone 1GM/50ML D5W 50 ML IV ONE (13:45)
[2023-03-30] MEDS ORDERED: ALBUTEROL MEDNEB 2.5 mg/3ml NEB NEB PRN (14:00)
[2023-03-30] MEDS ORDERED: PREGABALIN 25 MG CAP PO PRN (14:15)
[2023-03-30] MEDS: levoFLOXacin 500MG 100 ML IV SCH (14:37)
[2023-03-30] MEDS ORDERED: NOREPINEPHRINE 8 MG/250ML KIT 250 ML IV SCH (14:45)
[2023-03-30 16:02] VITALS: BP 139/67; PULSE 61; RESP 12; O2SAT 96
[2023-03-30] MEDS: MORPHINE SULFATE INJ 2 MG/ml SYRG IV PRN (18:44)
[2023-03-30] MEDS: ONDANSETRON HCL 4 MG/2 ML VIAL IV PRN (18:47)
[2023-03-30 19:31] VITALS: PULSE 70; RESP 14; O2SAT 99
[2023-03-30] MEDS: ATORVASTATIN 20 MG TAB PO SCH (22:15)
[2023-03-30 22:48] VITALS: O2SAT 95
[2023-03-31] MEDS: ONDANSETRON HCL 4 MG/2 ML VIAL IV PRN ×4 (01:53→21:49)
[2023-03-31] MEDS: MORPHINE SULFATE INJ 2 MG/ml SYRG IV PRN ×3 (01:53→21:49)
[2023-03-31 06:15] LABS: Basophils # (auto) 0.1 10 ^3/uL (0-0.2); Basophils % (auto) 1.1 % (0.0-2.0); Eosinophils # (auto) 0.2 10 ^3/uL (0-0.8); Eosinophils % (auto) 2.9 % (0.0-7.0); Hemoglobin 11.8 g/dL (12.2-16.2); Lymphocytes # (auto) 1.6 10 ^3/uL (0.4-5.4); Lymphocytes % (auto) 26.5 % (10.0-50.0); Mean Corpuscular Hemoglobin 27.9 pg (28.0-32.0); Mean Corpuscular Hgb Conc. 32.8 g/dL (32.0-36.0); Mean Corpuscular Volume 85.1 fL (80.0-100.0); Monocytes # (auto) 0.6 10 ^3/uL (0-1.3); Monocytes % (auto) 9.9 % (0.0-12.0); Neutrophils # (auto) 3.7 10 ^3/uL (1.6-8.6); Neutrophils % (auto) 59.6 % (37.0-80.0); Nucleated Red Blood Cells % 0.2 %; Red Blood Cells 4.23 10^6/uL (4.0-5.20); Red Cell Distribution Width 15.8 % (11.8-14.3); White Blood Cell 6.2 10^3/uL (4.4-10.8)
[2023-03-31 08:01] LABS: Alanine Aminotransferase 12 U/L (7-40); Albumin 3.4 g/dL (3.2-4.8); Alkaline Phosphatase 67 U/L (46-116); Anion Gap 7 (5-15); Aspartate Aminotransferase 29 U/L (13-40); BUN/Creatinine Ratio 13.6 (10.0-20.0); Bilirubin, Total 0.6 mg/dL (0.2-1.0); Blood Urea Nitrogen 11 mg/dL (9-23); Calcium 8.4 mg/dL (8.5-10.1); Carbon Dioxide 22 mmol/L (20-30); Chloride 113 mmol/L (98-107); Glucose 82 mg/dL (74-106); Potassium 4.8 mmol/L (3.5-5.1); Sodium 142 mmol/L (136-145); Total Protein 5.5 g/dL (5.7-8.2)
[2023-03-31] MEDS: PANTOPRAZOLE 40 MG TAB PO SCH (08:36)
[2023-03-31] MEDS ORDERED: cefTRIAXone 1GM/50ML D5W 50 ML IV SCH (09:00)
[2023-03-31] MEDS ORDERED: FUROSEMIDE 20 MG/2 ML VIAL IV SCH (10:00)
[2023-03-31] MEDS ORDERED: AZITHROMYCIN 500MG/ 250ML 250 ML IV SCH (10:00)
[2023-03-31] MEDS ORDERED: LACTULOSE 20Gm/30ML SOLN PO PRN (10:00)
[2023-03-31] MEDS ORDERED: ONDANSETRON HCL 4 MG/2 ML VIAL IV PRN (10:00)
[2023-03-31] MEDS ORDERED: TEMAZEPAM 15 MG CAP PO PRN (10:00)
[2023-03-31] MEDS ORDERED: traMADol HCL 50 MG TAB PO PRN (10:00)
[2023-03-31 11:38] VITALS: PULSE 65; RESP 16; O2SAT 97
[2023-03-31] MEDS: ALBUTEROL MEDNEB 2.5 mg/3ml NEB NEB SCH ×2 (11:39→19:28)
[2023-03-31] MEDS: IPRATROPIUM BROM 0.5 MG/2.5ML INH SOL NEB SCH ×2 (11:39→19:28)
[2023-03-31 11:48] VITALS: PULSE 67; RESP 16; O2SAT 99
[2023-03-31] MEDS: levoFLOXacin 500MG 100 ML IV SCH (12:11)
[2023-03-31] MEDS: ENOXAPARIN SOD 40 MG/0.4 ML SYRINGE SC SCH (12:12)
[2023-03-31] MEDS: FLUoxetine HCL 20 MG CAP PO SCH (12:12)
[2023-03-31 14:06] VITALS: BP 103/49; PULSE 66; RESP 16; O2SAT 93
[2023-03-31 19:35] VITALS: PULSE 74; RESP 18; O2SAT 98
[2023-03-31] MEDS: ATORVASTATIN 20 MG TAB PO SCH (22:07)
[2023-03-31 23:39] VITALS: PULSE 70
[2023-03-31 23:58] VITALS: BP 137/68; PULSE 71; RESP 20; TEMP 98.3; O2SAT 98
[2023-04-01] VITALS (15 sets, daily range): BP systolic 124–143; BP diastolic 67–74; PULSE 61–76; RESP 15–20; TEMP 97.5–98.6; O2SAT 94–100
[2023-04-01] MEDS: LORazepam 0.5 MG TAB PO PRN (00:45)
[2023-04-01] MEDS ORDERED: ASCO500T11 PO (00:45)
[2023-04-01] MEDS ORDERED: TRAM50TA2 PO (00:45)
[2023-04-01] MEDS ORDERED: MAGNSUS48 PO (00:45)
[2023-04-01] MEDS ORDERED: SACU1TAB PO (00:45)
[2023-04-01] MEDS ORDERED: BUDE1AER4 IN (00:45)
[2023-04-01] MEDS ORDERED: FURO1TAB33 PO (00:45)
[2023-04-01] MEDS ORDERED: MORP15TA PO (00:45)
[2023-04-01] MEDS ORDERED: LISI-275 PO (00:45)
[2023-04-01] MEDS ORDERED: PREG300C12 PO (00:45)
[2023-04-01] MEDS ORDERED: CLON0.5T4 PO (00:45)
[2023-04-01] MEDS: ALBUTEROL MEDNEB 2.5 mg/3ml NEB NEB SCH ×5 (01:03→23:52)
[2023-04-01] MEDS: IPRATROPIUM BROM 0.5 MG/2.5ML INH SOL NEB SCH ×5 (01:03→23:52)
[2023-04-01] MEDS: MORPHINE SULFATE INJ 2 MG/ml SYRG IV PRN ×4 (02:03→20:57)
[2023-04-01 04:51] LABS: Basophils # (auto) 0.1 10 ^3/uL (0-0.2); Basophils % (auto) 0.7 % (0.0-2.0); Eosinophils # (auto) 0.1 10 ^3/uL (0-0.8); Hematocrit 36.1 % (36.0-46.0); Lymphocytes # (auto) 1.8 10 ^3/uL (0.4-5.4); Lymphocytes % (auto) 24.8 % (10.0-50.0); Mean Corpuscular Hemoglobin 28.1 pg (28.0-32.0); Mean Corpuscular Hgb Conc. 33.3 g/dL (32.0-36.0); Mean Corpuscular Volume 84.3 fL (80.0-100.0); Monocytes # (auto) 0.8 10 ^3/uL (0-1.3); Monocytes % (auto) 10.5 % (0.0-12.0); Neutrophils # (auto) 4.5 10 ^3/uL (1.6-8.6); Nucleated Red Blood Cells % 0.1 %; Red Blood Cells 4.29 10^6/uL (4.0-5.20); Red Cell Distribution Width 15.8 % (11.8-14.3); White Blood Cell 7.2 10^3/uL (4.4-10.8)
[2023-04-01 05:12] LABS: Albumin 3.7 g/dL (3.2-4.8); Alkaline Phosphatase 71 U/L (46-116); Anion Gap 6 (5-15); Aspartate Aminotransferase 17 U/L (13-40); BUN/Creatinine Ratio 14.1 (10.0-20.0); Bilirubin, Total 0.6 mg/dL (0.2-1.0); Blood Urea Nitrogen 13 mg/dL (9-23); Calcium 8.9 mg/dL (8.5-10.1); Carbon Dioxide 27 mmol/L (20-30); Chloride 110 mmol/L (98-107); Glucose 88 mg/dL (74-106); Potassium 4.1 mmol/L (3.5-5.1); Sodium 143 mmol/L (136-145)
[2023-04-01 05:13] LABS: Alanine Aminotransferase < 9 U/L (7-40); Total Protein 5.7 g/dL (5.7-8.2)
[2023-04-01] MEDS: PANTOPRAZOLE 40 MG TAB PO SCH (08:07)
[2023-04-01] MEDS: levoFLOXacin 500MG 100 ML IV SCH (09:27)
[2023-04-01] MEDS: FLUoxetine HCL 20 MG CAP PO SCH (09:27)
[2023-04-01] MEDS: ENOXAPARIN SOD 40 MG/0.4 ML SYRINGE SC SCH (09:27)
[2023-04-01 09:38] LABS: Hepatitis B Surface Antigen Negative (Negative)
[2023-04-01 10:00] LABS: Hepatitis C Antibody Negative (Negative)
[2023-04-01] MEDS ORDERED: traMADol HCL 50 MG TAB PO PRN (14:00)
[2023-04-01] MEDS: ATORVASTATIN 20 MG TAB PO SCH (22:24)
[2023-04-01] MEDS: CARVEDILOL 3.125 MG TAB PO SCH (22:25)
[2023-04-01] MEDS: ASCORBIC ACID 500 MG TAB PO SCH (22:25)
[2023-04-02] VITALS (8 sets, daily range): BP systolic 127–145; BP diastolic 70–93; PULSE 59–70; RESP 16–20; TEMP 98–98.2; O2SAT 95–97
[2023-04-02] MEDS: MORPHINE SULFATE INJ 2 MG/ml SYRG IV PRN ×2 (03:19→13:15)
[2023-04-02] MEDS: LORazepam 0.5 MG TAB PO PRN (04:32)
[2023-04-02] MEDS: IPRATROPIUM BROM 0.5 MG/2.5ML INH SOL NEB SCH ×2 (06:00→12:00)
[2023-04-02] MEDS: ALBUTEROL MEDNEB 2.5 mg/3ml NEB NEB SCH ×2 (06:00→12:00)
[2023-04-02 06:22] LABS: Chloride 111 mmol/L (98-107); Potassium 3.7 mmol/L (3.5-5.1); Sodium 143 mmol/L (136-145)
[2023-04-02 06:23] LABS: Anion Gap 7 (5-15); Carbon Dioxide 25 mmol/L (20-30)
[2023-04-02 06:28] LABS: BUN/Creatinine Ratio 14.5 (10.0-20.0); Blood Urea Nitrogen 11 mg/dL (9-23); Glucose 94 mg/dL (74-106)
[2023-04-02 06:37] LABS: Basophils # (auto) 0.1 10 ^3/uL (0-0.2); Basophils % (auto) 0.7 % (0.0-2.0); Eosinophils # (auto) 0.2 10 ^3/uL (0-0.8); Eosinophils % (auto) 2.3 % (0.0-7.0); Hematocrit 36.1 % (36.0-46.0); Hemoglobin 11.9 g/dL (12.2-16.2); Lymphocytes # (auto) 1.6 10 ^3/uL (0.4-5.4); Lymphocytes % (auto) 20.7 % (10.0-50.0); Mean Corpuscular Hemoglobin 27.5 pg (28.0-32.0); Mean Corpuscular Volume 83.2 fL (80.0-100.0); Monocytes # (auto) 0.8 10 ^3/uL (0-1.3); Monocytes % (auto) 10.4 % (0.0-12.0); Neutrophils # (auto) 5.2 10 ^3/uL (1.6-8.6); Neutrophils % (auto) 65.9 % (37.0-80.0); Nucleated Red Blood Cells % 0.2 %; Red Blood Cells 4.34 10^6/uL (4.0-5.20); Red Cell Distribution Width 15.7 % (11.8-14.3); White Blood Cell 7.9 10^3/uL (4.4-10.8)
[2023-04-02] MEDS: PANTOPRAZOLE 40 MG TAB PO SCH (08:26)
[2023-04-02] MEDS: FLUoxetine HCL 20 MG CAP PO SCH (09:23)
[2023-04-02] MEDS: CARVEDILOL 3.125 MG TAB PO SCH (09:23)
[2023-04-02] MEDS: ASCORBIC ACID 500 MG TAB PO SCH (09:24)
[2023-04-02] MEDS: ENOXAPARIN SOD 40 MG/0.4 ML SYRINGE SC SCH (09:24)
[2023-04-02] MEDS ORDERED: LISINOPRIL 5 MG TAB PO SCH (10:00)
[2023-04-02] MEDS ORDERED: FUROSEMIDE 20 MG TAB PO SCH (10:00)
[2023-04-02] MEDS: levoFLOXacin 500MG 100 ML IV SCH (12:28)
[2023-04-02 14:58] LABS: COVID19 ANTIGEN SOFIA FIA NEGATIVE (NEGATIVE)
== END 2023-04-02 16:48 | DRG 177 ==
LOC: ER 01:40 → EDBD 01:40 → TELE 13:40 → TELE-CENTR 03-31 23:44
PROVIDERS: ADMIT Internal Medicine Geriatric Medicine; ATTEND Student in an Organized Health Care Education/Training Program
DX: J15.69 Pneumonia due to other Gram-negative bacteria (principal); I50.41 Acute combined systolic (congestive) and diastolic (congestive) heart failure; J44.0 Chronic obstructive pulmonary disease with (acute) lower respiratory infection; N17.9 Acute kidney failure, unspecified; J15.9 Unspecified bacterial pneumonia; I11.0 Hypertensive heart disease with heart failure; K21.9 Gastro-esophageal reflux disease without esophagitis; Z20.822 Contact with and (suspected) exposure to COVID-19; D64.9 Anemia, unspecified; E86.0 Dehydration; F41.9 Anxiety disorder, unspecified; G89.4 Chronic pain syndrome; I25.10 Atherosclerotic heart disease of native coronary artery without angina pectoris; M10.9 Gout, unspecified; E78.5 Hyperlipidemia, unspecified; G47.00 Insomnia, unspecified; N20.0 Calculus of kidney; S20.211A Contusion of right front wall of thorax, initial encounter; F17.210 Nicotine dependence, cigarettes, uncomplicated; F32.A Depression, unspecified; W18.39XA Other fall on same level, initial encounter; S70.01XA Contusion of right hip, initial encounter; S80.01XA Contusion of right knee, initial encounter; Z88.8 Allergy status to other drugs, medicaments and biological substances; Z82.49 Family history of ischemic heart disease and other diseases of the circulatory system; Z83.3 Family history of diabetes mellitus; Z87.442 Personal history of urinary calculi; Z88.6 Allergy status to analgesic agent; Z90.710 Acquired absence of both cervix and uterus; Z95.1 Presence of aortocoronary bypass graft; Y93.89 Activity, other specified; Y92.89 Other specified places as the place of occurrence of the external cause; Y99.8 Other external cause status; Z95.810 Presence of automatic (implantable) cardiac defibrillator
CPT/HCPCS: 36415; 71045; 71250; 73562; 74176; 80048; 80053; 81001; 83605; 83735; 83880; 84443; 84484; 85025; 85610; 85730; 86803; 87081; 87340; 87426; 93005; 94640; 97110; 97163; G0378; J1956; J2405

== ENCOUNTER 2023-05-16 22:39 | Inpatient (IN) | payer MEDICARE, MEDICAID ==
[~2023-05-16] VITALS: Ht 162.6 cm; Wt 75.6 kg
[~2023-05-16 22:39] MED LIST changes: +ASCO500T11 PO; +BUDE1AER4 IN; +CLON0.5T4 PO; +FURO1TAB33 PO; +LISI-275 PO; +MAGNSUS48 PO; +PREG300C12 PO; +SACU1TAB PO; +TRAM50TA2 PO
[2023-05-16] MEDS ORDERED: SODIUM CHLORIDE 0.9% 1,000 ML IV ONE (23:00)
[2023-05-16] MEDS ORDERED: PROMETHAZINE HCL 25 MG/ML 1ML IV ONE (23:00)
[2023-05-16 23:36] LABS: Basophils # (auto) 0 10 ^3/uL (0-0.2); Basophils % (auto) 0.4 % (0.0-2.0); Eosinophils # (auto) 0 10 ^3/uL (0-0.8); Eosinophils % (auto) 0.1 % (0.0-7.0); Hematocrit 43.5 % (36.0-46.0); Hemoglobin 14.3 g/dL (12.2-16.2); Lymphocytes # (auto) 0.9 10 ^3/uL (0.4-5.4); Lymphocytes % (auto) 7.2 % (10.0-50.0); Mean Corpuscular Hemoglobin 27.5 pg (28.0-32.0); Mean Corpuscular Hgb Conc. 32.9 g/dL (32.0-36.0); Mean Corpuscular Volume 83.5 fL (80.0-100.0); Monocytes # (auto) 0.8 10 ^3/uL (0-1.3); Monocytes % (auto) 6.7 % (0.0-12.0); Neutrophils # (auto) 10.1 10 ^3/uL (1.6-8.6); Neutrophils % (auto) 85.6 % (37.0-80.0); Nucleated Red Blood Cells % 0.1 %; Red Blood Cells 5.22 10^6/uL (4.0-5.20); Red Cell Distribution Width 16.4 % (11.8-14.3); White Blood Cell 11.8 10^3/uL (4.4-10.8)
[2023-05-16 23:39] LABS: Alanine Aminotransferase 13 U/L (7-40); Albumin 4.5 g/dL (3.2-4.8); Alkaline Phosphatase 104 U/L (46-116); Anion Gap 9 (5-15); Aspartate Aminotransferase 19 U/L (13-40); Bilirubin, Total 1.1 mg/dL (0.2-1.0); Blood Urea Nitrogen 12 mg/dL (9-23); Calcium 9.3 mg/dL (8.7-10.4); Carbon Dioxide 25 mmol/L (20-30); Chloride 103 mmol/L (98-107); Glucose 128 mg/dL (74-106); Potassium 4.2 mmol/L (3.5-5.1); Sodium 137 mmol/L (136-145); Total Protein 7.2 g/dL (5.7-8.2)
[2023-05-16 23:42] VITALS: PULSE 75; RESP 15; O2SAT 95
[2023-05-17] VITALS (9 sets, daily range): BP systolic 132–150; BP diastolic 57–96; PULSE 67–101; RESP 16–22; TEMP 97.9–99.4; O2SAT 94–98
[2023-05-17] MEDS ORDERED: ALBUTEROL SULF 2.5 MG/0.5ML(0.5%) NEB SOLN NEB PRN (10:00)
[2023-05-17] MEDS ORDERED: IPRATROPIUM BROM 0.5 MG/2.5ML INH SOL NEB PRN (10:00)
[2023-05-17] MEDS ORDERED: DOCUSATE SOD 100 MG CAP PO PRN (10:00)
[2023-05-17] MEDS: ONDANSETRON HCL 4 MG/2 ML VIAL IV PRN ×2 (12:23→21:51)
[2023-05-17] MEDS: MORPHINE SULFATE INJ 2 MG/ml SYRG IV PRN (12:53)
[2023-05-17] MEDS: POLYETHYLENE GLYCOL 17 GM PWDR PO SCH (14:49)
[2023-05-17] MEDS: CARVEDILOL 3.125 MG TAB PO SCH ×2 (14:49→21:50)
[2023-05-17] MEDS: SACUBITRIL-VALSARTAN 24mg/26mg TAB PO SCH ×2 (14:49→21:49)
[2023-05-17] MEDS: LISINOPRIL 5 MG TAB PO SCH (14:50)
[2023-05-17] MEDS ORDERED: METOCLOPRAMIDE HCL 5MG/ml INJ 2ml VIAL IV STA (15:53)
[2023-05-17] MEDS: FUROSEMIDE 40 MG/4 ML VIAL IV SCH (17:45)
[2023-05-17] MEDS: ATORVASTATIN 20 MG TAB PO SCH (21:50)
[2023-05-18] VITALS (8 sets, daily range): BP systolic 105–145; BP diastolic 62–79; PULSE 79–97; RESP 18–20; TEMP 97.7–99.9; O2SAT 95–100
[2023-05-18 04:47] LABS: Urine Bacteria FEW /hpf (None Seen); Urine Blood TRACE /uL (Negative); Urine Clarity Clear (Clear); Urine Color Yellow (Yellow); Urine Mucus FEW (None Seen); Urine Protein, UAD TRACE (Negative); Urine Specific Gravity 1.018 (1.001-1.035); Urine Urobilinogen Normal (Negative); Urine WBC <1 /hpf (0 - 5); Urine pH 5.5 (5.0-8.0)
[2023-05-18] MEDS ORDERED: ONDA-188 PO (04:54)
[2023-05-18] MEDS ORDERED: PREG300C49 PO (04:54)
[2023-05-18] MEDS ORDERED: CENO50TA PO (04:54)
[2023-05-18] MEDS ORDERED: MORP1TAB12 PO (04:54)
[2023-05-18] MEDS ORDERED: ZOLP5TAB5 PO (04:54)
[2023-05-18] MEDS ORDERED: NITR100C6 PO (04:54)
[2023-05-18] MEDS ORDERED: FUR20T PO (04:54)
[2023-05-18] MEDS ORDERED: PANT40T PO (04:54)
[2023-05-18] MEDS: FUROSEMIDE 40 MG/4 ML VIAL IV SCH ×2 (05:32→18:58)
[2023-05-18 07:14] LABS: Basophils # (auto) 0.1 10 ^3/uL (0-0.2); Basophils % (auto) 0.5 % (0.0-2.0); Eosinophils # (auto) 0 10 ^3/uL (0-0.8); Hematocrit 46.6 % (36.0-46.0); Hemoglobin 15.4 g/dL (12.2-16.2); Lymphocytes # (auto) 1.4 10 ^3/uL (0.4-5.4); Lymphocytes % (auto) 14.2 % (10.0-50.0); Mean Corpuscular Hemoglobin 27.7 pg (28.0-32.0); Mean Corpuscular Hgb Conc. 32.9 g/dL (32.0-36.0); Monocytes # (auto) 1.2 10 ^3/uL (0-1.3); Monocytes % (auto) 11.5 % (0.0-12.0); Neutrophils # (auto) 7.5 10 ^3/uL (1.6-8.6); Neutrophils % (auto) 73.8 % (37.0-80.0); Nucleated Red Blood Cells % 0.1 %; Red Blood Cells 5.55 10^6/uL (4.0-5.20); Red Cell Distribution Width 16.3 % (11.8-14.3); White Blood Cell 10.1 10^3/uL (4.4-10.8)
[2023-05-18 07:35] LABS: Alanine Aminotransferase 13 U/L (7-40); Albumin 4.4 g/dL (3.2-4.8); Alkaline Phosphatase 94 U/L (46-116); Anion Gap 14 (5-15); Aspartate Aminotransferase 22 U/L (13-40); BUN/Creatinine Ratio 11.2 (10.0-20.0); Bilirubin, Total 0.7 mg/dL (0.2-1.0); Blood Urea Nitrogen 10 mg/dL (9-23); Calcium 9.3 mg/dL (8.5-10.1); Carbon Dioxide 21 mmol/L (20-30); Chloride 102 mmol/L (98-107); Glucose 125 mg/dL (74-106); Potassium 3.6 mmol/L (3.5-5.1); Sodium 137 mmol/L (136-145); Total Protein 7.1 g/dL (5.7-8.2)
[2023-05-18] MEDS: ASPirin 81 mg TAB PO SCH (09:54)
[2023-05-18] MEDS: PANTOPRAZOLE 40 MG TAB PO SCH (09:54)
[2023-05-18] MEDS: SACUBITRIL-VALSARTAN 24mg/26mg TAB PO SCH ×3 (09:54→21:48)
[2023-05-18] MEDS: POLYETHYLENE GLYCOL 17 GM PWDR PO SCH (09:58)
[2023-05-18] MEDS: CARVEDILOL 3.125 MG TAB PO SCH ×2 (09:58→22:00)
[2023-05-18] MEDS: LISINOPRIL 5 MG TAB PO SCH (10:00)
[2023-05-18] MEDS: MORPHINE SULFATE INJ 2 MG/ml SYRG IV PRN (10:04)
[2023-05-18] MEDS: ONDANSETRON HCL 4 MG/2 ML VIAL IV PRN (10:04)
[2023-05-18] MEDS ORDERED: ASCO500T11 PO (15:16)
[2023-05-18] MEDS: ACETAMINOPHEN 325 MG TAB PO PRN (18:15)
[2023-05-18] MEDS ORDERED: LACT10PA2 PO (18:18)
[2023-05-18] MEDS ORDERED: IPR002IS HHN (18:18)
[2023-05-18] MEDS ORDERED: DOCU-94 PO (18:18)
[2023-05-18] MEDS ORDERED: TEMA15CA2 PO (18:18)
[2023-05-18] MEDS ORDERED: VITA400T4 PO (18:18)
[2023-05-18] MEDS ORDERED: ZINC220C10 PO (18:18)
[2023-05-18] MEDS ORDERED: BISA10SU45 RE (18:18)
[2023-05-18] MEDS ORDERED: LACT1CAP14 PO (18:18)
[2023-05-18] MEDS ORDERED: LORA-1123 PO (18:18)
[2023-05-18] MEDS ORDERED: ALB5IS NEB (18:18)
[2023-05-18] MEDS ORDERED: LEVO500T91 PO (18:18)
[2023-05-18] MEDS ORDERED: CRAN450T PO (18:18)
[2023-05-18 19:15] LABS: Rapid Influenza A Negative (Negative); Rapid Influenza B Negative (Negative)
[2023-05-18 19:18] LABS: COVID19 ANTIGEN SOFIA FIA POSITIVE (NEGATIVE)
[2023-05-18] MEDS: ATORVASTATIN 20 MG TAB PO SCH (21:49)
[2023-05-19] VITALS (8 sets, daily range): BP systolic 102–135; BP diastolic 65–78; PULSE 75–84; RESP 17–21; TEMP 98–98.5; O2SAT 97–98
[2023-05-19] MEDS: ACETAMINOPHEN 325 MG TAB PO PRN ×2 (00:35→18:17)
[2023-05-19] MEDS: FUROSEMIDE 40 MG/4 ML VIAL IV SCH ×2 (05:28→18:18)
[2023-05-19] MEDS: POLYETHYLENE GLYCOL 17 GM PWDR PO SCH (08:19)
[2023-05-19] MEDS: ASPirin 81 mg TAB PO SCH (08:20)
[2023-05-19] MEDS: ONDANSETRON HCL 4 MG/2 ML VIAL IV PRN ×3 (08:20→18:18)
[2023-05-19] MEDS: PANTOPRAZOLE 40 MG TAB PO SCH (08:20)
[2023-05-19] MEDS: SACUBITRIL-VALSARTAN 24mg/26mg TAB PO SCH ×2 (08:21→22:03)
[2023-05-19] MEDS: CARVEDILOL 3.125 MG TAB PO SCH ×2 (08:21→22:03)
[2023-05-19] MEDS: MORPHINE SULFATE INJ 2 MG/ml SYRG IV PRN ×2 (08:22→14:33)
[2023-05-19] MEDS ORDERED: CHOLECALCIFEROL (VITD3) 2,000 UNIT CAP/TAB PO ONE (10:15)
[2023-05-19] MEDS ORDERED: ZINC SULFATE 220mg CAP or TAB PO ONE (10:15)
[2023-05-19] MEDS: levoFLOXacin 250MG 50 ML IV SCH (20:34)
[2023-05-19] MEDS: METOCLOPRAMIDE HCL 5MG/ml INJ 2ml VIAL IV PRN (21:19)
[2023-05-19] MEDS: ASCORBIC ACID 500 MG TAB PO SCH (21:22)
[2023-05-19] MEDS: ATORVASTATIN 20 MG TAB PO SCH (21:23)
[2023-05-20] VITALS (8 sets, daily range): BP systolic 92–147; BP diastolic 63–92; PULSE 72–91; RESP 18–20; TEMP 97.8–98.9; O2SAT 92–99
[2023-05-20] MEDS: FUROSEMIDE 40 MG/4 ML VIAL IV SCH ×2 (06:00→18:00)
[2023-05-20] MEDS: PANTOPRAZOLE 40 MG TAB PO SCH (08:04)
[2023-05-20] MEDS: POLYETHYLENE GLYCOL 17 GM PWDR PO SCH (10:00)
[2023-05-20] MEDS: levoFLOXacin 250MG 50 ML IV SCH (10:00)
[2023-05-20] MEDS: CARVEDILOL 3.125 MG TAB PO SCH ×2 (10:03→22:00)
[2023-05-20] MEDS: ASCORBIC ACID 500 MG TAB PO SCH ×2 (10:03→22:00)
[2023-05-20] MEDS: ASPirin 81 mg TAB PO SCH (10:03)
[2023-05-20] MEDS: ZINC SULFATE 220mg CAP or TAB PO SCH (10:04)
[2023-05-20] MEDS: CHOLECALCIFEROL (VITD3) 2,000 UNIT CAP/TAB PO SCH (10:04)
[2023-05-20] MEDS: SACUBITRIL-VALSARTAN 24mg/26mg TAB PO SCH ×2 (10:06→21:59)
[2023-05-20] MEDS: ATORVASTATIN 20 MG TAB PO SCH (22:00)
[2023-05-21] VITALS (8 sets, daily range): BP systolic 94–132; BP diastolic 55–82; PULSE 41–94; RESP 17–18; TEMP 97–98.1; O2SAT 95–99
[2023-05-21] MEDS: FUROSEMIDE 40 MG/4 ML VIAL IV SCH (06:00)
[2023-05-21] MEDS: PANTOPRAZOLE 40 MG TAB PO SCH (08:00)
[2023-05-21] MEDS: ASPirin 81 mg TAB PO SCH (09:45)
[2023-05-21] MEDS: POLYETHYLENE GLYCOL 17 GM PWDR PO SCH (09:45)
[2023-05-21] MEDS: ASCORBIC ACID 500 MG TAB PO SCH ×2 (09:45→21:29)
[2023-05-21] MEDS: SACUBITRIL-VALSARTAN 24mg/26mg TAB PO SCH ×2 (09:45→22:00)
[2023-05-21] MEDS: ZINC SULFATE 220mg CAP or TAB PO SCH (09:45)
[2023-05-21] MEDS: CHOLECALCIFEROL (VITD3) 2,000 UNIT CAP/TAB PO SCH (09:46)
[2023-05-21] MEDS: levoFLOXacin 250MG 50 ML IV SCH (09:46)
[2023-05-21] MEDS: CARVEDILOL 3.125 MG TAB PO SCH ×2 (09:46→22:00)
[2023-05-21] MEDS: ONDANSETRON ODT 4 MG TAB PO PRN ×2 (16:25→22:23)
[2023-05-21] MEDS: OXYCODONE W/ ACETAMINOPHEN 5/325MG TABLET PO PRN (16:26)
[2023-05-21] MEDS: FUROSEMIDE 20 MG TAB PO SCH (16:26)
[2023-05-21] MEDS: ATORVASTATIN 20 MG TAB PO SCH (21:29)
[2023-05-21] MEDS: ACETAMINOPHEN 325 MG TAB PO PRN (22:23)
[2023-05-22 05:00] VITALS: BP 119/59; PULSE 86; RESP 16; TEMP 98; O2SAT 98
[2023-05-22] MEDS: FUROSEMIDE 20 MG TAB PO SCH (05:38)
[2023-05-22 08:00] VITALS: O2SAT 98
[2023-05-22 09:00] VITALS: BP 108/72; PULSE 71; RESP 16; TEMP 97.5; O2SAT 95
[2023-05-22] MEDS: SACUBITRIL-VALSARTAN 24mg/26mg TAB PO SCH (09:48)
[2023-05-22] MEDS: POLYETHYLENE GLYCOL 17 GM PWDR PO SCH (09:48)
[2023-05-22] MEDS: PANTOPRAZOLE 40 MG TAB PO SCH (09:49)
[2023-05-22] MEDS: ASPirin 81 mg TAB PO SCH (09:49)
[2023-05-22] MEDS: ZINC SULFATE 220mg CAP or TAB PO SCH (09:49)
[2023-05-22] MEDS: OXYCODONE W/ ACETAMINOPHEN 5/325MG TABLET PO PRN (09:50)
[2023-05-22] MEDS: CARVEDILOL 3.125 MG TAB PO SCH (09:50)
[2023-05-22] MEDS: ASCORBIC ACID 500 MG TAB PO SCH (09:50)
[2023-05-22] MEDS ORDERED: levoFLOXacin 250 MG TAB PO SCH (10:00)
[2023-05-22] MEDS: CHOLECALCIFEROL (VITD3) 2,000 UNIT CAP/TAB PO SCH (10:00)
[2023-05-22] MEDS ORDERED: LEVO250T58 PO (11:48)
[2023-05-22] MEDS ORDERED: SACU1TAB PO (11:48)
[2023-05-22] MEDS ORDERED: FURO40TA4 PO (11:48)
[2023-05-22] MEDS: METOCLOPRAMIDE HCL 5MG/ml INJ 2ml VIAL IV PRN (13:58)
[2023-05-22 16:46] VITALS: BP 108/72; PULSE 74; TEMP 36.4
== END 2023-05-22 17:27 | DRG 177 ==
LOC: EDBD 22:39 → EDUNIT# 22:39 → ER 22:42 → OVERFLOW 05-17 10:05 → WEST WING 05-17 12:26 → TELE-WESTW 05-17 17:28
PROVIDERS: ADMIT Family Medicine; ATTEND Internal Medicine
DX: U07.1 COVID-19 (principal); I50.23 Acute on chronic systolic (congestive) heart failure; J96.21 Acute and chronic respiratory failure with hypoxia; J44.1 Chronic obstructive pulmonary disease with (acute) exacerbation; N17.9 Acute kidney failure, unspecified; K59.00 Constipation, unspecified; I11.0 Hypertensive heart disease with heart failure; N20.0 Calculus of kidney; F41.9 Anxiety disorder, unspecified; G20.A1 Parkinson's disease without dyskinesia, without mention of fluctuations; Z66 Do not resuscitate; I25.10 Atherosclerotic heart disease of native coronary artery without angina pectoris; J43.9 Emphysema, unspecified; I25.5 Ischemic cardiomyopathy; K21.9 Gastro-esophageal reflux disease without esophagitis; E78.5 Hyperlipidemia, unspecified; F17.210 Nicotine dependence, cigarettes, uncomplicated; K52.9 Noninfective gastroenteritis and colitis, unspecified; K57.30 Diverticulosis of large intestine without perforation or abscess without bleeding; M1A.9XX0 Chronic gout, unspecified, without tophus (tophi); Z74.01 Bed confinement status; Z86.16 Personal history of COVID-19; Z95.1 Presence of aortocoronary bypass graft; Z78.9 Other specified health status; Z99.81 Dependence on supplemental oxygen; Z87.440 Personal history of urinary (tract) infections; Z79.899 Other long term (current) drug therapy; Z82.49 Family history of ischemic heart disease and other diseases of the circulatory system; Z83.3 Family history of diabetes mellitus; Z86.73 Personal history of transient ischemic attack (TIA), and cerebral infarction without residual deficits; Z87.442 Personal history of urinary calculi; Z88.5 Allergy status to narcotic agent; Z88.6 Allergy status to analgesic agent; Z90.49 Acquired absence of other specified parts of digestive tract; Z90.710 Acquired absence of both cervix and uterus; Z95.810 Presence of automatic (implantable) cardiac defibrillator; Z99.3 Dependence on wheelchair; N83.209 Unspecified ovarian cyst, unspecified side; B95.8 Unspecified staphylococcus as the cause of diseases classified elsewhere
CPT/HCPCS: 36415; 71045; 74018; 74176; 80053; 81001; 83605; 83880; 84484; 85025; 87040; 87077; 87081; 87086; 87186; 87426; 87493; 87804; 93005; 96361; 96374; 97110; 97163; G0378; J2405; Q0162

== ENCOUNTER 2023-07-26 15:26 | Inpatient (IN) | payer OTHER, MEDICAID ==
[~2023-07-26] VITALS: Ht 162.6 cm; Wt 76.0 kg
[~2023-07-26 15:26] MED LIST changes: +ALB5IS NEB; -ALPR2TAB6 PO; +BISA10SU45 RE; -BUDE1AER4 IN; -CAR3125T PO; -CARI-277 PO; -CLON0.5T4 PO; +CRAN450T PO; +DOCU-94 PO; -FENT50DI2 TD; +FUR20T PO; -FURO1TAB33 PO; +IPR002IS HHN; +LACT10PA2 PO; +LACT1CAP14 PO; +LEVO250T58 PO; +LEVO500T91 PO; +LORA-1123 PO; -MAGNSUS48 PO; -MORP15TA PO; +MORP1TAB12 PO; -NITR0.4S29 SL; +PANT40T PO; -PANT40TA2 PO; -POTA-228 PO; -PREG300C12 PO; +PREG300C49 PO; -PREG50CA PO; +TEMA15CA2 PO; +VITA400T4 PO; +ZINC220C10 PO
[2023-07-26 15:37] VITALS: PULSE 77; RESP 20; O2SAT 98
[2023-07-26] MEDS: SODIUM CHLORIDE 0.9% 500 ML IV ONE (16:00)
[2023-07-26 16:22] LABS: Urine Bacteria FEW /hpf (None Seen); Urine Blood Negative /uL (Negative); Urine Clarity HAZY (Clear); Urine Color Yellow (Yellow); Urine Protein, UAD Negative (Negative); Urine Specific Gravity 1.023 (1.001-1.035); Urine Urobilinogen Normal (Negative); Urine WBC 3 /hpf (0 - 5); Urine pH 5.5 (5.0-8.0)
[2023-07-26 16:25] LABS: Basophils # (auto) 0.1 10 ^3/uL (0-0.2); Basophils % (auto) 1.1 % (0.0-2.0); Eosinophils # (auto) 0.4 10 ^3/uL (0-0.8); Eosinophils % (auto) 4.3 % (0.0-7.0); Hematocrit 38.2 % (36.0-46.0); Hemoglobin 12.7 g/dL (12.2-16.2); Lymphocytes # (auto) 2.6 10 ^3/uL (0.4-5.4); Mean Corpuscular Hemoglobin 29.4 pg (28.0-32.0); Mean Corpuscular Hgb Conc. 33.4 g/dL (32.0-36.0); Monocytes # (auto) 0.8 10 ^3/uL (0-1.3); Monocytes % (auto) 8.5 % (0.0-12.0); Neutrophils # (auto) 5.2 10 ^3/uL (1.6-8.6); Neutrophils % (auto) 57.1 % (37.0-80.0); Nucleated Red Blood Cells % 0.1 %; Red Blood Cells 4.34 10^6/uL (4.0-5.20); Red Cell Distribution Width 18.1 % (11.8-14.3); White Blood Cell 9.1 10^3/uL (4.4-10.8)
[2023-07-26] MEDS: ONDANSETRON HCL 4 MG/2 ML VIAL IV ONE (16:32)
[2023-07-26] MEDS: MORPHINE SULFATE 4 MG/ML SYR/VIAL IV ONE (16:32)
[2023-07-26 16:40] LABS: Alanine Aminotransferase 20 U/L (7-40); Albumin 4.2 g/dL (3.2-4.8); Alkaline Phosphatase 82 U/L (46-116); Anion Gap 5 (5-15); BUN/Creatinine Ratio 19.5 (10.0-20.0); Bilirubin, Total 0.6 mg/dL (0.2-1.0); Blood Urea Nitrogen 16 mg/dL (9-23); Calcium 9.1 mg/dL (8.7-10.4); Carbon Dioxide 27 mmol/L (20-30); Chloride 109 mmol/L (98-107); Glucose 89 mg/dL (74-106); Lipase 30 U/L (12-53); Potassium 3.9 mmol/L (3.5-5.1); Sodium 141 mmol/L (136-145); Total Protein 6.5 g/dL (5.7-8.2)
[2023-07-26 16:49] LABS: Aspartate Aminotransferase 23 U/L (13-40)
[2023-07-26 19:30] VITALS: PULSE 70; RESP 14; O2SAT 97
[2023-07-26] MEDS ORDERED: ACETAMINOPHEN 325 MG TAB PO PRN (21:00)
[2023-07-26] MEDS ORDERED: ALBUTEROL SULF 2.5 MG/0.5ML(0.5%) NEB SOLN NEB PRN (21:00)
[2023-07-26] MEDS ORDERED: MORPHINE SULFATE INJ 2 MG/ml SYRG IV PRN ×2 (21:00→21:45)
[2023-07-26 21:37] VITALS: BP 140/87; PULSE 70; RESP 20; O2SAT 97
[2023-07-26] MEDS ORDERED: NITROGLYCERIN 0.4 MG SL TAB SL PRN (21:45)
[2023-07-26] MEDS: SODIUM CHLOR 0.9% PF (SALINE LOCK) 10ML VIAL/SYR IV SCH (23:03)
[2023-07-26] MEDS: ATORVASTATIN 20 MG TAB PO SCH (23:12)
[2023-07-26] MEDS: levoFLOXacin 500MG 100 ML IV ONE (23:12)
[2023-07-26] MEDS: CARVEDILOL 3.125 MG TAB PO SCH (23:13)
[2023-07-26] MEDS: ONDANSETRON HCL 4 MG/2 ML VIAL IV PRN (23:20)
[2023-07-26] MEDS: HYDROmorphone HCL 2 MG/ML VL/or syr IV PRN (23:21)
[2023-07-27] VITALS (9 sets, daily range): BP systolic 116–134; BP diastolic 52–70; PULSE 69–70; RESP 15–18; TEMP 97.8–98.8; O2SAT 94–99
[2023-07-27 05:26] LABS: Basophils # (auto) 0.1 10 ^3/uL (0-0.2); Basophils % (auto) 1.2 % (0.0-2.0); Eosinophils # (auto) 0.4 10 ^3/uL (0-0.8); Eosinophils % (auto) 5.1 % (0.0-7.0); Hemoglobin 12.6 g/dL (12.2-16.2); Lymphocytes # (auto) 2.8 10 ^3/uL (0.4-5.4); Lymphocytes % (auto) 34.8 % (10.0-50.0); Mean Corpuscular Hemoglobin 29.6 pg (28.0-32.0); Mean Corpuscular Hgb Conc. 33.2 g/dL (32.0-36.0); Mean Corpuscular Volume 89.2 fL (80.0-100.0); Monocytes # (auto) 0.8 10 ^3/uL (0-1.3); Monocytes % (auto) 10.2 % (0.0-12.0); Neutrophils # (auto) 3.9 10 ^3/uL (1.6-8.6); Neutrophils % (auto) 48.7 % (37.0-80.0); Red Blood Cells 4.25 10^6/uL (4.0-5.20); Red Cell Distribution Width 17.8 % (11.8-14.3)
[2023-07-27 05:56] LABS: Alanine Aminotransferase 21 U/L (7-40); Albumin 3.9 g/dL (3.2-4.8); Alkaline Phosphatase 80 U/L (46-116); Anion Gap 6 (5-15); Aspartate Aminotransferase 24 U/L (13-40); BUN/Creatinine Ratio 14.6 (10.0-20.0); Blood Urea Nitrogen 12 mg/dL (9-23); Calcium 8.8 mg/dL (8.5-10.1); Carbon Dioxide 25 mmol/L (20-30); Chloride 111 mmol/L (98-107); Glucose 86 mg/dL (74-106); Potassium 3.8 mmol/L (3.5-5.1); Sodium 142 mmol/L (136-145)
[2023-07-27 05:57] LABS: Bilirubin, Total 0.7 mg/dL (0.2-1.0); Total Protein 6.2 g/dL (5.7-8.2)
[2023-07-27] MEDS: levoFLOXacin 250MG 50 ML IV SCH (11:19)
[2023-07-27] MEDS: FAMOTIDINE (10MG/ML) 2ML VL IV SCH (11:19)
[2023-07-27] MEDS: FUROSEMIDE 20 MG/2 ML VIAL IV SCH (11:19)
[2023-07-27] MEDS: ASPirin 81 mg TAB PO SCH (11:20)
[2023-07-27] MEDS: OXYCODONE W/ ACETAMINOPHEN 5/325MG TABLET PO PRN (22:15)
[2023-07-28 05:00] VITALS: BP 114/70; PULSE 74; RESP 18; TEMP 98.8; O2SAT 98
[2023-07-28 07:30] VITALS: PULSE 78; RESP 17; O2SAT 99
[2023-07-28 08:54] VITALS: O2SAT 97
[2023-07-28 08:55] VITALS: BP 149/71; PULSE 78; RESP 15; TEMP 98.6; O2SAT 96
[2023-07-28 13:00] VITALS: BP 120/55; PULSE 70; RESP 16; TEMP 98.8; O2SAT 98
[2023-07-28 16:55] VITALS: BP 112/71; PULSE 70; RESP 15; TEMP 98.3; O2SAT 98
[2023-07-29 05:00] VITALS: BP 117/59; PULSE 128; RESP 18; TEMP 98.1; O2SAT 98
[2023-07-29 08:40] VITALS: BP 130/46; PULSE 67; RESP 18; TEMP 98.3; O2SAT 100
[2023-07-29] MEDS: levoFLOXacin 500 MG TAB PO SCH (10:11)
[2023-07-29 12:50] VITALS: BP 119/58; PULSE 70; RESP 20; TEMP 98.1; O2SAT 99
[2023-07-29 16:45] VITALS: BP 118/59; PULSE 70; RESP 18; TEMP 98.4; O2SAT 98
[2023-07-29] MEDS: TAMSULOSIN HYDROCHLORIDE 0.4 MG CAP PO SCH (17:00)
[2023-07-29 20:00] VITALS: PULSE 67; RESP 18; O2SAT 96
[2023-07-29 22:00] VITALS: BP 104/57; PULSE 67; RESP 18; TEMP 98.3; O2SAT 96
[2023-07-30] VITALS (7 sets, daily range): BP systolic 116–137; BP diastolic 62–81; PULSE 62–70; RESP 16–18; TEMP 97.6–98.5; O2SAT 95–99
[2023-07-30 06:09] LABS: Basophils # (auto) 0.1 10 ^3/uL (0-0.2); Basophils % (auto) 0.8 % (0.0-2.0); Eosinophils # (auto) 0.3 10 ^3/uL (0-0.8); Hematocrit 37.4 % (36.0-46.0); Hemoglobin 12.5 g/dL (12.2-16.2); Lymphocytes # (auto) 2.2 10 ^3/uL (0.4-5.4); Lymphocytes % (auto) 29.6 % (10.0-50.0); Mean Corpuscular Hemoglobin 29.5 pg (28.0-32.0); Mean Corpuscular Hgb Conc. 33.5 g/dL (32.0-36.0); Monocytes # (auto) 0.8 10 ^3/uL (0-1.3); Monocytes % (auto) 11.2 % (0.0-12.0); Neutrophils # (auto) 4.1 10 ^3/uL (1.6-8.6); Neutrophils % (auto) 54.4 % (37.0-80.0); Red Blood Cells 4.25 10^6/uL (4.0-5.20); Red Cell Distribution Width 17.5 % (11.8-14.3); White Blood Cell 7.6 10^3/uL (4.4-10.8)
[2023-07-30 06:18] LABS: Chloride 110 mmol/L (98-107); Potassium 3.8 mmol/L (3.5-5.1); Sodium 143 mmol/L (136-145)
[2023-07-30 06:19] LABS: Anion Gap 4 (5-15); Calcium 9.4 mg/dL (8.5-10.1); Carbon Dioxide 29 mmol/L (20-30)
[2023-07-30 06:24] LABS: BUN/Creatinine Ratio 13.9 (10.0-20.0); Blood Urea Nitrogen 11 mg/dL (9-23); Glucose 103 mg/dL (74-106)
[2023-07-30] MEDS ORDERED: LEVO750T40 PO (10:24)
[2023-07-31 05:00] VITALS: BP 130/79; PULSE 83; RESP 16; TEMP 98.4; O2SAT 95
[2023-07-31] MEDS: DOCUSATE SOD 100 MG CAP PO PRN (09:23)
[2023-07-31 12:36] VITALS: BP 141/69; PULSE 70; RESP 16; TEMP 98.1; O2SAT 93
[2023-07-31 16:40] VITALS: BP 137/70; PULSE 97; RESP 16; TEMP 98.5; O2SAT 96
== END 2023-07-31 20:55 | DRG 690 ==
LOC: ER 15:26 → EDBD 15:26 → EDUNIT# 15:26 → CENTRAL 21:37 → OVERFLOW 21:37 → CENTRAL 23:48
PROVIDERS: ADMIT Nurse Practitioner Family; ATTEND Internal Medicine Pulmonary Disease
DX: N10 Acute pyelonephritis (principal); I50.32 Chronic diastolic (congestive) heart failure; J96.11 Chronic respiratory failure with hypoxia; F11.20 Opioid dependence, uncomplicated; N20.0 Calculus of kidney; G89.29 Other chronic pain; N28.89 Other specified disorders of kidney and ureter; I11.0 Hypertensive heart disease with heart failure; J44.9 Chronic obstructive pulmonary disease, unspecified; G20.A1 Parkinson's disease without dyskinesia, without mention of fluctuations; I25.10 Atherosclerotic heart disease of native coronary artery without angina pectoris; F17.210 Nicotine dependence, cigarettes, uncomplicated; K21.9 Gastro-esophageal reflux disease without esophagitis; Z99.81 Dependence on supplemental oxygen; Z95.1 Presence of aortocoronary bypass graft; Z79.899 Other long term (current) drug therapy; Z90.710 Acquired absence of both cervix and uterus; Z83.3 Family history of diabetes mellitus; Z82.49 Family history of ischemic heart disease and other diseases of the circulatory system; Z87.442 Personal history of urinary calculi
CPT/HCPCS: 36415; 74176; 76775; 80048; 80053; 81001; 83690; 83880; 85025; 87081; 87086; 93005; G0378; J1956; J2405; J3490

== ENCOUNTER 2023-09-13 14:15 | Inpatient (IN) | payer OTHER, MEDICAID ==
[~2023-09-13] VITALS: Ht 160 cm; Wt 75.7 kg
[~2023-09-13 14:15] MED LIST changes: -ALB5IS NEB; +ALBU108A5 INH; +ASPI-543 PO; +BISA10SU45 PR; -BISA10SU45 RE; +CARI-579 PO; +CHOL20007 PO; +CLON-853 PO; +CLOP75TA70 PO; +FLUT1AER12 INH; -FUR20T PO; -IPR002IS HHN; +IPRA0.00; -LACT10PA2 PO; -LACT1CAP14 PO; +LACTCAP3 PO; -LEVO250T58 PO; -LEVO500T91 PO; -LISI-275 PO; -LORA-1123 PO; +MAGN400S25 PO; +MORP15TA PO; -MORP1TAB12 PO; +MORP1TAB14 PO; +MULT-1072 PO; +NITR-52 PO; +PERCOT PO; -PREG300C49 PO; -TEMA15CA2 PO; -VITA400T4 PO; -ZINC220C10 PO
[2023-09-13 15:00] VITALS: PULSE 70; RESP 16; O2SAT 100
[2023-09-13 15:04] LABS: Basophils # (auto) 0.1 10 ^3/uL (0-0.2); Basophils % (auto) 0.7 % (0.0-2.0); Eosinophils # (auto) 0.4 10 ^3/uL (0-0.8); Eosinophils % (auto) 4.2 % (0.0-7.0); Hematocrit 41.9 % (36.0-46.0); Lymphocytes # (auto) 2.9 10 ^3/uL (0.4-5.4); Lymphocytes % (auto) 33.4 % (10.0-50.0); Mean Corpuscular Hemoglobin 30.1 pg (28.0-32.0); Mean Corpuscular Hgb Conc. 33.5 g/dL (32.0-36.0); Mean Corpuscular Volume 89.9 fL (80.0-100.0); Monocytes # (auto) 0.8 10 ^3/uL (0-1.3); Monocytes % (auto) 8.8 % (0.0-12.0); Neutrophils # (auto) 4.6 10 ^3/uL (1.6-8.6); Neutrophils % (auto) 52.9 % (37.0-80.0); Nucleated Red Blood Cells % 0.2 %; Red Blood Cells 4.66 10^6/uL (4.0-5.20); Red Cell Distribution Width 13.7 % (11.8-14.3); White Blood Cell 8.6 10^3/uL (4.4-10.8)
[2023-09-13 15:19] LABS: Alanine Aminotransferase 14 U/L (7-40); Albumin 4.3 g/dL (3.2-4.8); Alkaline Phosphatase 87 U/L (46-116); Anion Gap 5 (5-15); Aspartate Aminotransferase 17 U/L (13-40); BUN/Creatinine Ratio 20.6 (10.0-20.0); Bilirubin, Total 0.5 mg/dL (0.2-1.0); Blood Urea Nitrogen 20 mg/dL (9-23); Carbon Dioxide 30 mmol/L (20-30); Chloride 106 mmol/L (98-107); Glucose 106 mg/dL (74-106); Lipase 32 U/L (12-53); Potassium 3.9 mmol/L (3.5-5.1); Sodium 141 mmol/L (136-145); Total Protein 6.6 g/dL (5.7-8.2)
[2023-09-13] MEDS: NITROGLYCERIN 0.4 MG SL TAB SL ONE (16:07)
[2023-09-13 16:25] LABS: Urine Bacteria FEW /hpf (None Seen); Urine Blood Negative /uL (Negative); Urine Clarity Turbid (Clear); Urine Color Yellow (Yellow); Urine Protein, UAD Negative (Negative); Urine Specific Gravity 1.015 (1.001-1.035); Urine Urobilinogen Normal (Negative); Urine WBC 4 /hpf (0 - 5); Urine pH 5.5 (5.0-9.0)
[2023-09-13] MEDS: ONDANSETRON HCL 4 MG/2 ML VIAL IV ONE ×3 (18:05→23:54)
[2023-09-13] MEDS: MORPHINE SULFATE INJ 2 MG/ml SYRG IV ONE ×3 (18:10→23:53)
[2023-09-13 19:15] VITALS: PULSE 60; RESP 12; O2SAT 100
[2023-09-13] MEDS ORDERED: ACETAMINOPHEN 325 MG TAB PO PRN (21:15)
[2023-09-13] MEDS ORDERED: ONDANSETRON HCL 4 MG/2 ML VIAL IV PRN (21:15)
[2023-09-13] MEDS ORDERED: DOCUSATE SOD 100 MG CAP PO PRN (21:15)
[2023-09-13] MEDS: CARVEDILOL 3.125 MG TAB PO SCH (22:00)
[2023-09-13] MEDS: SODIUM CHLOR 0.9% PF (SALINE LOCK) 10ML VIAL/SYR IV SCH (22:27)
[2023-09-13] MEDS: ATORVASTATIN 20 MG TAB PO SCH (22:31)
[2023-09-13] MEDS ORDERED: NITROGLYCERIN 0.4 MG SL TAB SL PRN (23:30)
[2023-09-14] VITALS (7 sets, daily range): BP systolic 101–137; BP diastolic 41–63; PULSE 60–71; RESP 16–20; TEMP 97.7–97.9; O2SAT 97–100
[2023-09-14] MEDS: KETOROLAC TROMETH 30 MG/ML 1ML VIAL IV ONE (02:22)
[2023-09-14] MEDS: MORPHINE SULFATE INJ 2 MG/ml SYRG IV PRN (06:44)
[2023-09-14 07:34] LABS: Basophils # (auto) 0 10 ^3/uL (0-0.2); Basophils % (auto) 0.4 % (0.0-2.0); Eosinophils # (auto) 0.4 10 ^3/uL (0-0.8); Eosinophils % (auto) 4.2 % (0.0-7.0); Hematocrit 41.5 % (36.0-46.0); Hemoglobin 13.6 g/dL (12.2-16.2); Lymphocytes % (auto) 32.8 % (10.0-50.0); Mean Corpuscular Hemoglobin 30.1 pg (28.0-32.0); Mean Corpuscular Hgb Conc. 32.9 g/dL (32.0-36.0); Mean Corpuscular Volume 91.6 fL (80.0-100.0); Monocytes # (auto) 0.8 10 ^3/uL (0-1.3); Monocytes % (auto) 8.8 % (0.0-12.0); Neutrophils # (auto) 4.9 10 ^3/uL (1.6-8.6); Neutrophils % (auto) 53.8 % (37.0-80.0); Nucleated Red Blood Cells % 0.1 %; Red Blood Cells 4.53 10^6/uL (4.0-5.20); Red Cell Distribution Width 14.2 % (11.8-14.3); White Blood Cell 9.1 10^3/uL (4.4-10.8)
[2023-09-14 08:20] LABS: Alanine Aminotransferase 12 U/L (7-40); Albumin 3.7 g/dL (3.2-4.8); Alkaline Phosphatase 78 U/L (46-116); Anion Gap 11 (5-15); Aspartate Aminotransferase 23 U/L (13-40); BUN/Creatinine Ratio 13.3 (10.0-20.0); Bilirubin, Total 0.4 mg/dL (0.2-1.0); Blood Urea Nitrogen 14 mg/dL (9-23); Carbon Dioxide 22 mmol/L (20-30); Chloride 105 mmol/L (98-107); Glucose 84 mg/dL (74-106); Potassium 3.9 mmol/L (3.5-5.1); Sodium 138 mmol/L (136-145); Total Protein 5.7 g/dL (5.7-8.2)
[2023-09-14] MEDS: ASPirin 81 mg TAB PO SCH (08:44)
[2023-09-14] MEDS: FUROSEMIDE 40 MG/4 ML VIAL IV SCH (10:00)
[2023-09-15] VITALS (8 sets, daily range): BP systolic 101–120; BP diastolic 43–51; PULSE 65–72; RESP 18–20; TEMP 97.9–98.6; O2SAT 90–100
[2023-09-15] MEDS: ERTAPENEM SOD INJ 1 GM in SODIUM CHL 0.9% 50 ML IV SCH (10:43)
[2023-09-16] VITALS (8 sets, daily range): BP systolic 99–136; BP diastolic 41–55; PULSE 20–72; RESP 18–95; TEMP 98–98.5; O2SAT 95–98
[2023-09-16] MEDS: AMITRIPTYLINE HCL 10 MG TAB PO ONE (10:31)
[2023-09-16] MEDS: FUROSEMIDE 40 MG TAB PO SCH (10:31)
[2023-09-16] MEDS: RANOLAZINE ER 500 MG TAB PO SCH (10:32)
[2023-09-16 11:09] LABS: Basophils # (auto) 0 10 ^3/uL (0-0.2); Basophils % (auto) 0.6 % (0.0-2.0); Eosinophils # (auto) 0.4 10 ^3/uL (0-0.8); Hematocrit 35.4 % (36.0-46.0); Hemoglobin 11.7 g/dL (12.2-16.2); Lymphocytes # (auto) 1.8 10 ^3/uL (0.4-5.4); Lymphocytes % (auto) 26.4 % (10.0-50.0); Mean Corpuscular Hemoglobin 29.9 pg (28.0-32.0); Mean Corpuscular Hgb Conc. 33.2 g/dL (32.0-36.0); Mean Corpuscular Volume 90.2 fL (80.0-100.0); Monocytes # (auto) 0.6 10 ^3/uL (0-1.3); Monocytes % (auto) 9.6 % (0.0-12.0); Neutrophils # (auto) 3.8 10 ^3/uL (1.6-8.6); Neutrophils % (auto) 57.4 % (37.0-80.0); Red Blood Cells 3.92 10^6/uL (4.0-5.20); Red Cell Distribution Width 13.9 % (11.8-14.3); White Blood Cell 6.6 10^3/uL (4.4-10.8)
[2023-09-16 11:56] LABS: Alanine Aminotransferase 14 U/L (7-40); Albumin 3.6 g/dL (3.2-4.8); Alkaline Phosphatase 76 U/L (46-116); Anion Gap 3 (5-15); Aspartate Aminotransferase 15 U/L (13-40); BUN/Creatinine Ratio 30.3 (10.0-20.0); Bilirubin, Total 0.4 mg/dL (0.2-1.0); Blood Urea Nitrogen 27 mg/dL (9-23); Calcium 9.3 mg/dL (8.7-10.4); Carbon Dioxide 34 mmol/L (20-30); Chloride 104 mmol/L (98-107); Glucose 114 mg/dL (74-106); Magnesium 1.9 mg/dL (1.6-2.6); Potassium 4.6 mmol/L (3.5-5.1); Sodium 141 mmol/L (136-145); Total Protein 5.3 g/dL (5.7-8.2)
[2023-09-16] MEDS ORDERED: RANO500T3 PO (15:28)
[2023-09-16] MEDS ORDERED: AMIT-400 PO (15:28)
[2023-09-16] MEDS ORDERED: traMADol HCL 50 MG TAB PO PRN (15:30)
[2023-09-16] MEDS: traMADol HCL 50 MG TAB PO PRN (16:20)
[2023-09-17] VITALS (7 sets, daily range): BP systolic 102–136; BP diastolic 42–63; PULSE 69–72; RESP 15–20; TEMP 36.5; O2SAT 92–100
[2023-09-17] MEDS: PANTOPRAZOLE 40 MG TAB PO SCH (10:17)
[2023-09-17 12:30] LABS: Basophils # (auto) 0 10 ^3/uL (0-0.2); Basophils % (auto) 0.5 % (0.0-2.0); Eosinophils # (auto) 0.3 10 ^3/uL (0-0.8); Eosinophils % (auto) 4.1 % (0.0-7.0); Hematocrit 40.3 % (36.0-46.0); Hemoglobin 13.3 g/dL (12.2-16.2); Lymphocytes # (auto) 1.8 10 ^3/uL (0.4-5.4); Lymphocytes % (auto) 22.9 % (10.0-50.0); Mean Corpuscular Hemoglobin 30.3 pg (28.0-32.0); Mean Corpuscular Hgb Conc. 33.1 g/dL (32.0-36.0); Mean Corpuscular Volume 91.5 fL (80.0-100.0); Monocytes # (auto) 0.7 10 ^3/uL (0-1.3); Monocytes % (auto) 9.4 % (0.0-12.0); Neutrophils # (auto) 4.9 10 ^3/uL (1.6-8.6); Neutrophils % (auto) 63.1 % (37.0-80.0); Red Cell Distribution Width 13.4 % (11.8-14.3); White Blood Cell 7.8 10^3/uL (4.4-10.8)
[2023-09-17 12:32] LABS: Alanine Aminotransferase 16 U/L (7-40); Albumin 3.8 g/dL (3.2-4.8); Alkaline Phosphatase 79 U/L (46-116); Anion Gap 4 (5-15); Aspartate Aminotransferase 17 U/L (13-40); BUN/Creatinine Ratio 27.7 (10.0-20.0); Bilirubin, Total 0.5 mg/dL (0.2-1.0); Blood Urea Nitrogen 26 mg/dL (9-23); Calcium 9.4 mg/dL (8.7-10.4); Carbon Dioxide 31 mmol/L (20-30); Chloride 105 mmol/L (98-107); Glucose 92 mg/dL (74-106); Magnesium 2.1 mg/dL (1.6-2.6); Potassium 4.4 mmol/L (3.5-5.1); Sodium 140 mmol/L (136-145); Total Protein 5.5 g/dL (5.7-8.2)
[2023-09-17] MEDS ORDERED: AMITRIPTYLINE HCL 10 MG TAB PO SCH (22:00)
== END 2023-09-17 16:50 | disposition home or self-care (01) | DRG 291 ==
LOC: EDBD 14:15 → ER 14:15 → TELE 23:20 → TELE-CENTR 09-14 02:56
PROVIDERS: ADMIT Internal Medicine Pulmonary Disease; ATTEND Internal Medicine Pulmonary Disease
DX: I13.0 Hypertensive heart and chronic kidney disease with heart failure and stage 1 through stage 4 chronic kidney disease, or unspecified chronic kidney disease (principal); I50.23 Acute on chronic systolic (congestive) heart failure; N39.0 Urinary tract infection, site not specified; G89.4 Chronic pain syndrome; J44.9 Chronic obstructive pulmonary disease, unspecified; I25.10 Atherosclerotic heart disease of native coronary artery without angina pectoris; N18.30 Chronic kidney disease, stage 3 unspecified; K21.9 Gastro-esophageal reflux disease without esophagitis; M10.9 Gout, unspecified; E78.5 Hyperlipidemia, unspecified; N20.0 Calculus of kidney; F32.A Depression, unspecified; F41.9 Anxiety disorder, unspecified; Z87.442 Personal history of urinary calculi; I25.2 Old myocardial infarction; Z88.1 Allergy status to other antibiotic agents; Z88.5 Allergy status to narcotic agent; Z95.1 Presence of aortocoronary bypass graft; Z98.61 Coronary angioplasty status; Z95.0 Presence of cardiac pacemaker; Z90.49 Acquired absence of other specified parts of digestive tract; Z90.710 Acquired absence of both cervix and uterus; Z83.3 Family history of diabetes mellitus; Z82.49 Family history of ischemic heart disease and other diseases of the circulatory system; Z90.89 Acquired absence of other organs
CPT/HCPCS: 36415; 71045; 71250; 74176; 78582; 80053; 81001; 83605; 83690; 83735; 83880; 84484; 85025; 85379; 87081; 87086; 93005; 93970; 96374; 96375; 96376; G0378; J1335; J1885; J2405

== ENCOUNTER 2023-09-21 21:03 | Inpatient (IN) | payer OTHER, MEDICAID ==
[~2023-09-21] VITALS: Ht 162.6 cm; Wt 70.0 kg
[~2023-09-21 21:03] MED LIST changes: +AMIT-400 PO; +RANO500T3 PO
[2023-09-21 21:15] VITALS: PULSE 70; RESP 23; O2SAT 100
[2023-09-21] MEDS: ALBUTEROL SULF 2.5 MG/0.5ML(0.5%) NEB SOLN ONE (21:27)
[2023-09-21] MEDS: ALBUTEROL SULF 2.5 MG/0.5ML(0.5%) NEB SOLN NEB ONE (21:27)
[2023-09-21 21:49] LABS: Basophils # (auto) 0.1 10 ^3/uL (0-0.2); Basophils % (auto) 1.1 % (0.0-2.0); Eosinophils # (auto) 0.2 10 ^3/uL (0-0.8); Eosinophils % (auto) 1.7 % (0.0-7.0); Hematocrit 41.4 % (36.0-46.0); Hemoglobin 13.8 g/dL (12.2-16.2); Lymphocytes # (auto) 3.8 10 ^3/uL (0.4-5.4); Lymphocytes % (auto) 40.1 % (10.0-50.0); Mean Corpuscular Hemoglobin 29.8 pg (28.0-32.0); Mean Corpuscular Hgb Conc. 33.3 g/dL (32.0-36.0); Mean Corpuscular Volume 89.4 fL (80.0-100.0); Monocytes # (auto) 0.7 10 ^3/uL (0-1.3); Monocytes % (auto) 7.6 % (0.0-12.0); Neutrophils # (auto) 4.7 10 ^3/uL (1.6-8.6); Neutrophils % (auto) 49.5 % (37.0-80.0); Nucleated Red Blood Cells % 0.1 %; Red Blood Cells 4.63 10^6/uL (4.0-5.20); Red Cell Distribution Width 13.7 % (11.8-14.3); White Blood Cell 9.6 10^3/uL (4.4-10.8)
[2023-09-21 22:07] LABS: Alanine Aminotransferase 11 U/L (7-40); Albumin 4.3 g/dL (3.2-4.8); Alkaline Phosphatase 86 U/L (46-116); Anion Gap 9 (5-15); Aspartate Aminotransferase 17 U/L (13-40); BUN/Creatinine Ratio 16.4 (10.0-20.0); Bilirubin, Total 0.5 mg/dL (0.2-1.0); Blood Urea Nitrogen 22 mg/dL (9-23); Calcium 9.5 mg/dL (8.7-10.4); Carbon Dioxide 25 mmol/L (20-30); Chloride 107 mmol/L (98-107); Glucose 124 mg/dL (74-106); Magnesium 1.9 mg/dL (1.6-2.6); Potassium 3.7 mmol/L (3.5-5.1); Sodium 141 mmol/L (136-145); Total Protein 6.6 g/dL (5.7-8.2)
[2023-09-21] MEDS: FUROSEMIDE 40 MG/4 ML VIAL IV ONE (22:10)
[2023-09-21] MEDS: methylPREDNISolone SOD SUCC 125 MG/2 ML VL IV ONE (22:10)
[2023-09-21] MEDS: SODIUM CHLORIDE 0.9% 500 ML IV ONE (22:11)
[2023-09-21 22:31] LABS: Base Excess 1.4 mmol/L (-2.0-2.0)
[2023-09-21] MEDS: MORPHINE SULFATE 4 MG/ML SYR/VIAL IV ONE (23:30)
[2023-09-21] MEDS: ONDANSETRON HCL 4 MG/2 ML VIAL IV ONE (23:31)
[2023-09-22] VITALS (8 sets, daily range): BP systolic 96–113; BP diastolic 42–60; PULSE 57–86; RESP 16–23; TEMP 97.8–98.6; O2SAT 96–100
[2023-09-22] MEDS ORDERED: IBUPROFEN 600 MG TAB PO PRN (01:00)
[2023-09-22] MEDS ORDERED: DOCUSATE SOD 100 MG CAP PO PRN (01:00)
[2023-09-22] MEDS: diphenhdrAMINE HCL 50 MG/1 ML VL IV ONE (02:47)
[2023-09-22] MEDS ORDERED: NITROGLYCERIN 0.4 MG SL TAB SL PRN (04:00)
[2023-09-22 05:00] LABS: Basophils # (auto) 0 10 ^3/uL (0-0.2); Basophils % (auto) 0.3 % (0.0-2.0); Eosinophils # (auto) 0 10 ^3/uL (0-0.8); Eosinophils % (auto) 0.1 % (0.0-7.0); Hemoglobin 13.1 g/dL (12.2-16.2); Lymphocytes # (auto) 1.1 10 ^3/uL (0.4-5.4); Lymphocytes % (auto) 14.8 % (10.0-50.0); Mean Corpuscular Hemoglobin 29.8 pg (28.0-32.0); Mean Corpuscular Hgb Conc. 32.8 g/dL (32.0-36.0); Monocytes # (auto) 0.2 10 ^3/uL (0-1.3); Monocytes % (auto) 2.6 % (0.0-12.0); Neutrophils # (auto) 5.9 10 ^3/uL (1.6-8.6); Neutrophils % (auto) 82.2 % (37.0-80.0); Nucleated Red Blood Cells % 0.1 %; Red Blood Cells 4.39 10^6/uL (4.0-5.20); Red Cell Distribution Width 13.6 % (11.8-14.3); White Blood Cell 7.2 10^3/uL (4.4-10.8)
[2023-09-22 05:16] LABS: Alanine Aminotransferase 10 U/L (7-40); Albumin 3.9 g/dL (3.2-4.8); Alkaline Phosphatase 78 U/L (46-116); Anion Gap 8 (5-15); Aspartate Aminotransferase 16 U/L (13-40); BUN/Creatinine Ratio 14.4 (10.0-20.0); Blood Urea Nitrogen 20 mg/dL (9-23); Calcium 9.2 mg/dL (8.7-10.4); Carbon Dioxide 25 mmol/L (20-30); Chloride 109 mmol/L (98-107); Glucose 151 mg/dL (74-106); Potassium 3.3 mmol/L (3.5-5.1); Sodium 142 mmol/L (136-145)
[2023-09-22 05:17] LABS: Bilirubin, Total 0.5 mg/dL (0.2-1.0)
[2023-09-22] MEDS: methylPREDNISolone SOD SUCC 40 MG/ML VL IV SCH (06:00)
[2023-09-22] MEDS: SODIUM CHLOR 0.9% PF (SALINE LOCK) 10ML VIAL/SYR IV SCH (06:04)
[2023-09-22] MEDS: ONDANSETRON HCL 4 MG/2 ML VIAL IV PRN (07:12)
[2023-09-22] MEDS: MORPHINE SULFATE INJ 2 MG/ml SYRG IV PRN ×2 (07:13→11:25)
[2023-09-22] MEDS: FUROSEMIDE 40 MG/4 ML VIAL IV SCH (09:41)
[2023-09-22] MEDS: ASPirin 81 mg TAB PO SCH (09:42)
[2023-09-22] MEDS: FAMOTIDINE (10MG/ML) 2ML VL IV SCH (09:42)
[2023-09-22] MEDS: CARVEDILOL 3.125 MG TAB PO SCH (10:00)
[2023-09-22] MEDS: ATORVASTATIN 20 MG TAB PO SCH (22:21)
[2023-09-23] VITALS (11 sets, daily range): BP systolic 101–129; BP diastolic 36–66; PULSE 63–86; RESP 16–20; TEMP 97.9–98.3; O2SAT 93–99
[2023-09-23 05:59] LABS: Basophils # (auto) 0 10 ^3/uL (0-0.2); Eosinophils # (auto) 0 10 ^3/uL (0-0.8); Hematocrit 37.9 % (36.0-46.0); Hemoglobin 12.5 g/dL (12.2-16.2); Lymphocytes # (auto) 1.2 10 ^3/uL (0.4-5.4); Lymphocytes % (auto) 6.2 % (10.0-50.0); Mean Corpuscular Hemoglobin 29.8 pg (28.0-32.0); Mean Corpuscular Hgb Conc. 32.9 g/dL (32.0-36.0); Mean Corpuscular Volume 90.7 fL (80.0-100.0); Monocytes # (auto) 0.2 10 ^3/uL (0-1.3); Monocytes % (auto) 1.3 % (0.0-12.0); Neutrophils # (auto) 17.6 10 ^3/uL (1.6-8.6); Neutrophils % (auto) 92.5 % (37.0-80.0); Red Blood Cells 4.18 10^6/uL (4.0-5.20); Red Cell Distribution Width 13.8 % (11.8-14.3)
[2023-09-23 06:16] LABS: Alanine Aminotransferase 10 U/L (7-40); Albumin 3.9 g/dL (3.2-4.8); Alkaline Phosphatase 79 U/L (46-116); Anion Gap 7 (5-15); Aspartate Aminotransferase 19 U/L (13-40); BUN/Creatinine Ratio 19.2 (10.0-20.0); Bilirubin, Total 0.3 mg/dL (0.2-1.0); Blood Urea Nitrogen 24 mg/dL (9-23); Calcium 9.5 mg/dL (8.5-10.1); Carbon Dioxide 27 mmol/L (20-30); Chloride 107 mmol/L (98-107); Glucose 127 mg/dL (74-106); Potassium 4.5 mmol/L (3.5-5.1); Sodium 141 mmol/L (136-145); Total Protein 6.2 g/dL (5.7-8.2)
[2023-09-23] MEDS: IPRATROPIUM BROM 0.5 MG/2.5ML INH SOL NEB PRN (19:37)
[2023-09-23] MEDS: ALBUTEROL SULF 2.5 MG/0.5ML(0.5%) NEB SOLN NEB PRN (19:37)
[2023-09-24] VITALS (11 sets, daily range): BP systolic 95–120; BP diastolic 37–81; PULSE 57–78; RESP 17–20; TEMP 97.8–98.5; O2SAT 93–99
[2023-09-24 05:24] LABS: Basophils # (auto) 0.1 10 ^3/uL (0-0.2); Basophils % (auto) 0.3 % (0.0-2.0); Eosinophils # (auto) 0 10 ^3/uL (0-0.8); Eosinophils % (auto) 0.1 % (0.0-7.0); Hematocrit 37.6 % (36.0-46.0); Hemoglobin 12.4 g/dL (12.2-16.2); Lymphocytes # (auto) 1.2 10 ^3/uL (0.4-5.4); Lymphocytes % (auto) 6.2 % (10.0-50.0); Monocytes # (auto) 0.3 10 ^3/uL (0-1.3); Monocytes % (auto) 1.8 % (0.0-12.0); Neutrophils # (auto) 17.4 10 ^3/uL (1.6-8.6); Neutrophils % (auto) 91.6 % (37.0-80.0); Red Blood Cells 4.14 10^6/uL (4.0-5.20); Red Cell Distribution Width 14.2 % (11.8-14.3)
[2023-09-24 05:32] LABS: Chloride 106 mmol/L (98-107); Potassium 4.7 mmol/L (3.5-5.1); Sodium 140 mmol/L (136-145)
[2023-09-24 05:33] LABS: Anion Gap 5 (5-15); Calcium 9.4 mg/dL (8.7-10.4); Carbon Dioxide 29 mmol/L (20-30)
[2023-09-24 05:38] LABS: BUN/Creatinine Ratio 24.3 (10.0-20.0); Blood Urea Nitrogen 28 mg/dL (9-23); Glucose 121 mg/dL (74-106)
[2023-09-24] MEDS: AZITHROMYCIN 500MG/ 250ML 250 ML IV SCH (09:35)
[2023-09-25] VITALS (8 sets, daily range): BP systolic 108–147; BP diastolic 52–74; PULSE 58–76; RESP 18–20; TEMP 36.3; O2SAT 94–100
[2023-09-25] MEDS ORDERED: PRED20TA2 PO (08:54)
[2023-09-25] MEDS: methylPREDNISolone SOD SUCC 40 MG/ML VL IV SCH (09:12)
[2023-09-25 10:05] LABS: Anion Gap 5 (5-15); Carbon Dioxide 30 mmol/L (20-30); Chloride 105 mmol/L (98-107); Potassium 4.1 mmol/L (3.5-5.1); Sodium 140 mmol/L (136-145)
[2023-09-25 10:06] LABS: Calcium 8.9 mg/dL (8.5-10.1)
[2023-09-25 10:10] LABS: Basophils # (auto) 0 10 ^3/uL (0-0.2); Basophils % (auto) 0.1 % (0.0-2.0); Eosinophils # (auto) 0 10 ^3/uL (0-0.8); Eosinophils % (auto) 0.2 % (0.0-7.0); Hematocrit 38.9 % (36.0-46.0); Hemoglobin 12.9 g/dL (12.2-16.2); Lymphocytes # (auto) 3.5 10 ^3/uL (0.4-5.4); Lymphocytes % (auto) 26.7 % (10.0-50.0); Mean Corpuscular Hemoglobin 30.4 pg (28.0-32.0); Mean Corpuscular Hgb Conc. 33.1 g/dL (32.0-36.0); Mean Corpuscular Volume 91.9 fL (80.0-100.0); Monocytes # (auto) 1.1 10 ^3/uL (0-1.3); Monocytes % (auto) 8.6 % (0.0-12.0); Neutrophils # (auto) 8.4 10 ^3/uL (1.6-8.6); Neutrophils % (auto) 64.4 % (37.0-80.0); Red Blood Cells 4.23 10^6/uL (4.0-5.20); Red Cell Distribution Width 14.2 % (11.8-14.3); White Blood Cell 13.1 10^3/uL (4.4-10.8)
[2023-09-25 10:11] LABS: BUN/Creatinine Ratio 28.4 (10.0-20.0); Blood Urea Nitrogen 31 mg/dL (9-23); Glucose 122 mg/dL (74-106)
[2023-09-25] MEDS: OXYCODONE W/ ACETAMINOPHEN 5/325MG TABLET PO ONE (11:26)
== END 2023-09-25 16:00 | disposition home or self-care (01) | DRG 189 ==
LOC: EDBD 21:03 → ER 21:03 → TELE 09-22 03:52 → TELE-CENTR 09-22 17:13
PROVIDERS: ADMIT Internal Medicine; ATTEND Internal Medicine Pulmonary Disease
PROC: 5A09357 Assistance with Respiratory Ventilation, Less than 24 Consecutive Hours, Continuous Positive Airway Pressure (ICD-10-PCS; principal; 2023-09-21)
PROC: 5A09357 Assistance with Respiratory Ventilation, Less than 24 Consecutive Hours, Continuous Positive Airway Pressure (ICD-10-PCS; 2023-09-22)
DX: J96.01 Acute respiratory failure with hypoxia (principal); I50.23 Acute on chronic systolic (congestive) heart failure; J44.1 Chronic obstructive pulmonary disease with (acute) exacerbation; I11.0 Hypertensive heart disease with heart failure; Z66 Do not resuscitate; N20.0 Calculus of kidney; I25.10 Atherosclerotic heart disease of native coronary artery without angina pectoris; F32.A Depression, unspecified; F41.9 Anxiety disorder, unspecified; K21.9 Gastro-esophageal reflux disease without esophagitis; M10.9 Gout, unspecified; Z90.710 Acquired absence of both cervix and uterus; Z87.442 Personal history of urinary calculi; Z95.1 Presence of aortocoronary bypass graft; Z88.1 Allergy status to other antibiotic agents; Z88.5 Allergy status to narcotic agent; Z79.899 Other long term (current) drug therapy; Z82.49 Family history of ischemic heart disease and other diseases of the circulatory system; Z83.3 Family history of diabetes mellitus
CPT/HCPCS: 36415; 36600; 71045; 74176; 80048; 80053; 82805; 83605; 83735; 83880; 84484; 85025; 87040; 87081; 93005; 93971; 94640; 94660; 96374; 96375; G0378; J2405; J3490

== ENCOUNTER 2023-10-16 20:25 | Inpatient (IN) | payer OTHER, MEDICAID ==
[~2023-10-16] VITALS: Ht 152.4 cm; Wt 74.0 kg
[~2023-10-16 20:25] MED LIST changes: -IPRA0.00; +IPRA0.00 NEB; +PRED20TA2 PO
[2023-10-16 21:23] VITALS: RESP 18; O2SAT 100
[2023-10-16 21:29] LABS: Basophils # (auto) 0 10 ^3/uL (0-0.2); Basophils % (auto) 0.5 % (0.0-2.0); Eosinophils # (auto) 0.2 10 ^3/uL (0-0.8); Eosinophils % (auto) 2.3 % (0.0-7.0); Hematocrit 37.7 % (36.0-46.0); Hemoglobin 12.6 g/dL (12.2-16.2); Lymphocytes # (auto) 2.9 10 ^3/uL (0.4-5.4); Lymphocytes % (auto) 33.8 % (10.0-50.0); Mean Corpuscular Hgb Conc. 33.3 g/dL (32.0-36.0); Mean Corpuscular Volume 89.9 fL (80.0-100.0); Monocytes % (auto) 12.1 % (0.0-12.0); Neutrophils # (auto) 4.4 10 ^3/uL (1.6-8.6); Neutrophils % (auto) 51.3 % (37.0-80.0); Nucleated Red Blood Cells % 0.4 %; Red Cell Distribution Width 13.9 % (11.8-14.3); White Blood Cell 8.6 10^3/uL (4.4-10.8)
[2023-10-16 21:48] LABS: Alanine Aminotransferase 16 U/L (7-40); Alkaline Phosphatase 72 U/L (46-116); Anion Gap 6 (5-15); Aspartate Aminotransferase 17 U/L (13-40); BUN/Creatinine Ratio 19.1 (10.0-20.0); Bilirubin, Total 0.3 mg/dL (0.2-1.0); Blood Urea Nitrogen 25 mg/dL (9-23); Calcium 9.2 mg/dL (8.5-10.1); Carbon Dioxide 31 mmol/L (20-30); Chloride 103 mmol/L (98-107); Glucose 110 mg/dL (74-106); Potassium 3.8 mmol/L (3.5-5.1); Sodium 140 mmol/L (136-145)
[2023-10-16 21:56] LABS: INR 1.03 (0.9-1.15); Partial Thromboplastin Time 28.7 SEC (24.5-34.5); Prothrombin Time 10.9 sec (9.3-11.8)
[2023-10-16 22:02] LABS: Urine Bacteria FEW /hpf (None Seen); Urine Blood Negative /uL (Negative); Urine Clarity Clear (Clear); Urine Color Light-Yellow (Yellow); Urine Hyaline Cast FEW /lpf (0 - 2); Urine Protein, UAD Negative (Negative); Urine Specific Gravity 1.017 (1.001-1.035); Urine Urobilinogen Normal (Negative); Urine WBC 9 /hpf (0 - 5); Urine pH 5.5 (5.0-9.0)
[2023-10-16 22:18] LABS: COVID19 ANTIGEN SOFIA FIA NEGATIVE (NEGATIVE); Rapid Influenza A Negative (Negative); Rapid Influenza B Negative (Negative)
[2023-10-16] MEDS: MORPHINE SULFATE INJ 2 MG/ml SYRG IV ONE (23:54)
[2023-10-17] VITALS (11 sets, daily range): BP systolic 87–125; BP diastolic 42–68; PULSE 58–70; RESP 14–21; TEMP 97.6–98.5; O2SAT 94–99
[2023-10-17] MEDS: levoFLOXacin 750MG 150 ML IV ONE (00:56)
[2023-10-17] MEDS ORDERED: traMADol HCL 50 MG TAB PO PRN (03:00)
[2023-10-17] MEDS ORDERED: ALBUTEROL SULF 2.5 MG/0.5ML(0.5%) NEB SOLN NEB PRN ×2 (03:00→05:00)
[2023-10-17] MEDS ORDERED: ACETAMINOPHEN 325 MG TAB PO PRN ×2 (03:00→05:15)
[2023-10-17] MEDS ORDERED: ONDANSETRON HCL 4 MG/2 ML VIAL IV PRN ×2 (03:00→05:15)
[2023-10-17] MEDS: traMADol HCL 50 MG TAB PO PRN (05:13)
[2023-10-17] MEDS ORDERED: IOHEXOL 350 MG/ML 100ML IJ ONE (05:42)
[2023-10-17] MEDS: levoFLOXacin 250MG 50 ML IV SCH (09:16)
[2023-10-17] MEDS: CLOPIDOGREL BISULFATE 75 MG TAB PO SCH (09:17)
[2023-10-17] MEDS: SACUBITRIL-VALSARTAN 24mg/26mg TAB PO SCH (09:17)
[2023-10-17] MEDS: FLUoxetine HCL 20 MG CAP PO SCH (09:17)
[2023-10-17] MEDS: RANOLAZINE ER 500 MG TAB PO SCH (09:17)
[2023-10-17] MEDS: FUROSEMIDE 40 MG TAB PO SCH (09:18)
[2023-10-17] MEDS: CARVEDILOL 3.125 MG TAB PO SCH (09:19)
[2023-10-17] MEDS: ASPirin 81 mg TAB PO SCH (09:19)
[2023-10-17] MEDS ORDERED: ASPirin 81 mg TAB PO SCH (10:00)
[2023-10-17] MEDS ORDERED: CLOPIDOGREL BISULFATE 75 MG TAB PO SCH (10:00)
[2023-10-17] MEDS ORDERED: RANOLAZINE ER 500 MG TAB PO SCH (10:00)
[2023-10-17] MEDS ORDERED: FLUoxetine HCL 20 MG CAP PO SCH (10:00)
[2023-10-17] MEDS ORDERED: CARVEDILOL 3.125 MG TAB PO SCH (10:00)
[2023-10-17] MEDS ORDERED: FUROSEMIDE 40 MG TAB PO SCH (10:00)
[2023-10-17] MEDS ORDERED: SACUBITRIL-VALSARTAN 24mg/26mg TAB PO SCH (10:00)
[2023-10-17] MEDS ORDERED: levoFLOXacin 250MG 50 ML IV SCH (10:00)
[2023-10-17 11:47] LABS: Hepatitis B Surface Antigen Negative (Negative)
[2023-10-17 12:08] LABS: Hepatitis C Antibody Negative (Negative)
[2023-10-17] MEDS: methylPREDNISolone SOD SUCC 40 MG/ML VL IV ONE (13:45)
[2023-10-17] MEDS: TAMSULOSIN HYDROCHLORIDE 0.4 MG CAP PO SCH (17:45)
[2023-10-17] MEDS: FUROSEMIDE 40 MG/4 ML VIAL IV SCH (17:46)
[2023-10-17] MEDS: ATORVASTATIN 20 MG TAB PO SCH (21:44)
[2023-10-17] MEDS ORDERED: ATORVASTATIN 20 MG TAB PO SCH (22:00)
[2023-10-18 01:13] VITALS: BP 93/54; PULSE 74; RESP 17; TEMP 98; O2SAT 96
[2023-10-18 05:02] VITALS: BP 102/51; PULSE 71; RESP 17; TEMP 97.9; O2SAT 98
[2023-10-18 06:14] LABS: Basophils # (auto) 0.1 10 ^3/uL (0-0.2); Basophils % (auto) 0.8 % (0.0-2.0); Eosinophils # (auto) 0.2 10 ^3/uL (0-0.8); Eosinophils % (auto) 2.8 % (0.0-7.0); Hematocrit 38.5 % (36.0-46.0); Hemoglobin 13.1 g/dL (12.2-16.2); Lymphocytes # (auto) 2.1 10 ^3/uL (0.4-5.4); Lymphocytes % (auto) 29.8 % (10.0-50.0); Mean Corpuscular Hemoglobin 30.2 pg (28.0-32.0); Mean Corpuscular Hgb Conc. 33.9 g/dL (32.0-36.0); Mean Corpuscular Volume 89.1 fL (80.0-100.0); Monocytes # (auto) 0.9 10 ^3/uL (0-1.3); Monocytes % (auto) 12.8 % (0.0-12.0); Neutrophils # (auto) 3.8 10 ^3/uL (1.6-8.6); Neutrophils % (auto) 53.8 % (37.0-80.0); Nucleated Red Blood Cells % 0.1 %; Red Blood Cells 4.32 10^6/uL (4.0-5.20); Red Cell Distribution Width 13.9 % (11.8-14.3)
[2023-10-18 06:28] LABS: INR 1.09 (0.9-1.15); Partial Thromboplastin Time 31.9 SEC (24.5-34.5); Prothrombin Time 11.5 sec (9.3-11.8)
[2023-10-18 06:40] LABS: Alanine Aminotransferase 11 U/L (7-40); Albumin 4.1 g/dL (3.2-4.8); Alkaline Phosphatase 73 U/L (46-116); Anion Gap 5 (5-15); Aspartate Aminotransferase 16 U/L (13-40); BUN/Creatinine Ratio 14.5 (10.0-20.0); Bilirubin, Total 0.6 mg/dL (0.2-1.0); Blood Urea Nitrogen 21 mg/dL (9-23); Calcium 9.7 mg/dL (8.5-10.1); Carbon Dioxide 32 mmol/L (20-30); Chloride 105 mmol/L (98-107); Cholesterol 178 mg/dL (< 200); Glucose 103 mg/dL (74-106); HDL Cholesterol 50 mg/dL (40-59); LDL Cholesterol 116 mg/dL (< 100); Magnesium 2.2 mg/dL (1.6-2.6); Phosphorus 3.1 mg/dL (2.4-5.1); Potassium 3.9 mmol/L (3.5-5.1); Sodium 142 mmol/L (136-145); Total Protein 6.2 g/dL (5.7-8.2); Triglycerides 97 mg/dL (< 150)
[2023-10-18 07:38] VITALS: O2SAT 98
[2023-10-18 08:00] VITALS: O2SAT 98
[2023-10-18 08:53] VITALS: BP 120/54; PULSE 73; RESP 18; TEMP 98.1; O2SAT 98
[2023-10-18] MEDS: methylPREDNISolone SOD SUCC 40 MG/ML VL IV SCH (09:13)
[2023-10-18] MEDS: FUROSEMIDE 40 MG TAB PO SCH (09:14)
[2023-10-18] MEDS ORDERED: ACET-1882 PO (10:58)
[2023-10-18] MEDS ORDERED: TAMS-35 PO (10:58)
[2023-10-18] MEDS ORDERED: PRED20TA2 PO (10:58)
[2023-10-18] MEDS ORDERED: LEVO250T58 PO (10:58)
[2023-10-18 12:30] VITALS: BP 100/51; PULSE 69; RESP 18; TEMP 98; O2SAT 99
== END 2023-10-18 17:40 | disposition home or self-care (01) | DRG 177 ==
LOC: EDBD 20:25 → ER 20:25 → OVERFLOW 10-17 03:05 → ER 10-17 03:05 → EAST 10-17 05:22
PROVIDERS: ADMIT Internal Medicine Pulmonary Disease; ATTEND Internal Medicine Pulmonary Disease
DX: J15.69 Pneumonia due to other Gram-negative bacteria (principal); I50.23 Acute on chronic systolic (congestive) heart failure; J96.20 Acute and chronic respiratory failure, unspecified whether with hypoxia or hypercapnia; N17.0 Acute kidney failure with tubular necrosis; N39.0 Urinary tract infection, site not specified; J44.1 Chronic obstructive pulmonary disease with (acute) exacerbation; J44.0 Chronic obstructive pulmonary disease with (acute) lower respiratory infection; Z20.822 Contact with and (suspected) exposure to COVID-19; I11.0 Hypertensive heart disease with heart failure; I25.10 Atherosclerotic heart disease of native coronary artery without angina pectoris; G20.A1 Parkinson's disease without dyskinesia, without mention of fluctuations; F41.9 Anxiety disorder, unspecified; F32.A Depression, unspecified; K21.9 Gastro-esophageal reflux disease without esophagitis; J40 Bronchitis, not specified as acute or chronic; I25.5 Ischemic cardiomyopathy; J15.9 Unspecified bacterial pneumonia; G89.29 Other chronic pain; E78.5 Hyperlipidemia, unspecified; Z95.0 Presence of cardiac pacemaker; Z87.442 Personal history of urinary calculi; Z90.710 Acquired absence of both cervix and uterus; Z95.1 Presence of aortocoronary bypass graft; Z90.49 Acquired absence of other specified parts of digestive tract; Z98.61 Coronary angioplasty status; Z83.3 Family history of diabetes mellitus; Z82.49 Family history of ischemic heart disease and other diseases of the circulatory system; Z88.1 Allergy status to other antibiotic agents; Z88.5 Allergy status to narcotic agent; Z87.891 Personal history of nicotine dependence
CPT/HCPCS: 36415; 71045; 71275; 80053; 80061; 81001; 82306; 82607; 83036; 83605; 83735; 83880; 84100; 84443; 84484; 85025; 85379; 85610; 85730; 86803; 87040; 87081; 87340; 87426; 87804; 93005; 96365; 96366; 96375; G0378; J1956

== ENCOUNTER 2023-10-21 16:37 | Inpatient (IN) | payer OTHER, MEDICAID ==
[~2023-10-21] VITALS: Ht 165.1 cm; Wt 74.5 kg
[~2023-10-21 16:37] MED LIST changes: +ACET-1882 PO; -BISA10SU45 PR; -CARI-579 PO; +LEVO250T58 PO; -MORP1TAB14 PO; -NITR-52 PO; -PERCOT PO; +TAMS-35 PO; -TRAM50TA2 PO
[2023-10-21] MEDS: methylPREDNISolone SOD SUCC 125 MG/2 ML VL IV ONE (17:00)
[2023-10-21] MEDS: IPRATROPIUM BROM 0.5 MG/2.5ML INH SOL HHN ONE (17:02)
[2023-10-21] MEDS: ALBUTEROL SULF 2.5 MG/0.5ML(0.5%) NEB SOLN HHN ONE (17:02)
[2023-10-21] MEDS: ONDANSETRON HCL 4 MG/2 ML VIAL IV ONE ×2 (17:15→20:13)
[2023-10-21 17:16] LABS: Basophils # (auto) 0.1 10 ^3/uL (0-0.2); Basophils % (auto) 0.7 % (0.0-2.0); Eosinophils # (auto) 0.2 10 ^3/uL (0-0.8); Eosinophils % (auto) 1.8 % (0.0-7.0); Hematocrit 38.8 % (36.0-46.0); Lymphocytes # (auto) 2.8 10 ^3/uL (0.4-5.4); Lymphocytes % (auto) 29.9 % (10.0-50.0); Mean Corpuscular Hemoglobin 30.3 pg (28.0-32.0); Mean Corpuscular Hgb Conc. 33.5 g/dL (32.0-36.0); Mean Corpuscular Volume 90.2 fL (80.0-100.0); Monocytes # (auto) 1.1 10 ^3/uL (0-1.3); Monocytes % (auto) 11.1 % (0.0-12.0); Neutrophils # (auto) 5.4 10 ^3/uL (1.6-8.6); Neutrophils % (auto) 56.5 % (37.0-80.0); Red Cell Distribution Width 14.3 % (11.8-14.3); White Blood Cell 9.5 10^3/uL (4.4-10.8)
[2023-10-21 17:34] LABS: Alanine Aminotransferase 14 U/L (7-40); Albumin 4.1 g/dL (3.2-4.8); Alkaline Phosphatase 77 U/L (46-116); Anion Gap 8 (5-15); Aspartate Aminotransferase 17 U/L (13-40); BUN/Creatinine Ratio 21.4 (10.0-20.0); Blood Urea Nitrogen 28 mg/dL (9-23); Calcium 9.7 mg/dL (8.5-10.1); Carbon Dioxide 29 mmol/L (20-30); Chloride 106 mmol/L (98-107); Glucose 97 mg/dL (74-106); Potassium 3.9 mmol/L (3.5-5.1); Sodium 143 mmol/L (136-145)
[2023-10-21 17:35] LABS: Bilirubin, Total 0.4 mg/dL (0.2-1.0); Total Protein 5.9 g/dL (5.7-8.2)
[2023-10-21] MEDS: MORPHINE SULFATE 4 MG/ML SYR/VIAL IV ONE ×2 (17:42→20:14)
[2023-10-21 18:37] LABS: Urine Bacteria FEW /hpf (None Seen); Urine Blood Negative /uL (Negative); Urine Clarity Clear (Clear); Urine Color Yellow (Yellow); Urine Hyaline Cast FEW /lpf (0 - 2); Urine Protein, UAD Negative (Negative); Urine Specific Gravity 1.013 (1.001-1.035); Urine Urobilinogen Normal (Negative); Urine WBC 4 /hpf (0 - 5); Urine pH 5.5 (5.0-9.0)
[2023-10-21] MEDS: IPRATROPIUM BROM 0.5 MG/2.5ML INH SOL NEB ONE (19:26)
[2023-10-21] MEDS: ALBUTEROL SULF 2.5 MG/0.5ML(0.5%) NEB SOLN NEB ONE (19:26)
[2023-10-21 19:30] VITALS: PULSE 79; RESP 11; O2SAT 100
[2023-10-21] MEDS: DexAMETHasone SOD PHOS 10MG/1ML VIAL INJ IV ONE (20:13)
[2023-10-21] MEDS ORDERED: NITROGLYCERIN 0.4 MG SL TAB SL PRN (21:00)
[2023-10-21] MEDS ORDERED: DOCUSATE SOD 100 MG CAP PO PRN (21:00)
[2023-10-21] MEDS: levoFLOXacin 500MG 100 ML IV ONE (21:06)
[2023-10-21 21:18] VITALS: BP 94/49; PULSE 80; RESP 15; TEMP 98; O2SAT 100
[2023-10-21] MEDS: LORazepam 2MG/ML-1ML VIAL IV ONE (21:29)
[2023-10-21] MEDS: CARVEDILOL 3.125 MG TAB PO SCH (22:00)
[2023-10-21] MEDS: SODIUM CHLOR 0.9% PF (SALINE LOCK) 10ML VIAL/SYR IV SCH (22:00)
[2023-10-21] MEDS: FAMOTIDINE (10MG/ML) 2ML VL IV SCH (22:00)
[2023-10-21] MEDS: ATORVASTATIN 20 MG TAB PO SCH (22:41)
[2023-10-21] MEDS: CARBIDOPA W LEVODOPA 25/100mg TABLET PO SCH (22:41)
[2023-10-21 23:08] VITALS: PULSE 94; RESP 23; O2SAT 100
[2023-10-21 23:10] VITALS: PULSE 89; RESP 21; O2SAT 98
[2023-10-21] MEDS: ALBUTEROL SULF 2.5 MG/0.5ML(0.5%) NEB SOLN NEB PRN (23:11)
[2023-10-21] MEDS: IPRATROPIUM BROM 0.5 MG/2.5ML INH SOL NEB PRN (23:12)
[2023-10-21] MEDS: MORPHINE SULFATE INJ 2 MG/ml SYRG IV PRN (23:52)
[2023-10-22] VITALS (8 sets, daily range): BP systolic 110–130; BP diastolic 59–80; PULSE 75–99; RESP 16–21; TEMP 97.8–98.2; O2SAT 97–100
[2023-10-22] MEDS: SODIUM CHLORIDE 0.9% 500 ML IV ONE (04:37)
[2023-10-22] MEDS: ONDANSETRON HCL 4 MG/2 ML VIAL IV PRN (06:18)
[2023-10-22] MEDS: methylPREDNISolone SOD SUCC 40 MG/ML VL IV SCH ×2 (06:18→09:59)
[2023-10-22 06:54] LABS: Basophils # (auto) 0 10 ^3/uL (0-0.2); Basophils % (auto) 0.1 % (0.0-2.0); Eosinophils # (auto) 0 10 ^3/uL (0-0.8); Hematocrit 37.1 % (36.0-46.0); Hemoglobin 12.2 g/dL (12.2-16.2); Lymphocytes # (auto) 0.8 10 ^3/uL (0.4-5.4); Lymphocytes % (auto) 8.1 % (10.0-50.0); Mean Corpuscular Hemoglobin 30.2 pg (28.0-32.0); Mean Corpuscular Hgb Conc. 32.9 g/dL (32.0-36.0); Monocytes # (auto) 0.2 10 ^3/uL (0-1.3); Monocytes % (auto) 2.1 % (0.0-12.0); Neutrophils % (auto) 89.7 % (37.0-80.0); Red Blood Cells 4.03 10^6/uL (4.0-5.20); Red Cell Distribution Width 14.5 % (11.8-14.3); White Blood Cell 10.1 10^3/uL (4.4-10.8)
[2023-10-22 07:05] LABS: Albumin 3.9 g/dL (3.2-4.8); Alkaline Phosphatase 63 U/L (46-116); Anion Gap 12 (5-15); Aspartate Aminotransferase 16 U/L (13-40); BUN/Creatinine Ratio 14.6 (10.0-20.0); Blood Urea Nitrogen 24 mg/dL (9-23); Calcium 9.6 mg/dL (8.7-10.4); Carbon Dioxide 23 mmol/L (20-30); Chloride 105 mmol/L (98-107); Glucose 148 mg/dL (74-106); Potassium 4.1 mmol/L (3.5-5.1); Sodium 140 mmol/L (136-145)
[2023-10-22 07:06] LABS: Bilirubin, Total 0.4 mg/dL (0.2-1.0); Total Protein 5.9 g/dL (5.7-8.2)
[2023-10-22 07:12] LABS: Alanine Aminotransferase < 9 U/L (7-40)
[2023-10-22] MEDS: ASPirin 81 mg TAB PO SCH (09:33)
[2023-10-22 10:44] LABS: Lactic Acid w/Reflex 4.2 mmol/L (0.4-2.0)
[2023-10-22 12:41] LABS: Magnesium 1.7 mg/dL (1.6-2.6)
[2023-10-22 12:43] LABS: Phosphorus 3.5 mg/dL (2.4-5.1)
[2023-10-22 13:52] LABS: INR 1.07 (0.9-1.15); Partial Thromboplastin Time 28.2 SEC (24.5-34.5); Prothrombin Time 11.3 sec (9.3-11.8)
[2023-10-22 18:07] LABS: Amphetamine Screen, Urine Neg (NEGATIVE); Barbiturate Scree,Urine Neg (NEGATIVE); Benzodiazephine Screen, Urine Neg (NEGATIVE); Cocaine Screen, Urine Neg (NEGATIVE); Opiate Scree,Urine Pos (NEGATIVE); Phencyclidine Screen, Urine Neg (NEGATIVE)
[2023-10-22 18:08] LABS: Cannabinoid Screen, Urine Neg (NEGATIVE)
[2023-10-22] MEDS: LIDOCAINE 5% TOPICAL PATCH TOP ONE (20:00)
[2023-10-22] MEDS: ENOXAPARIN SOD 40 MG/0.4 ML SYRINGE SC ONE (20:15)
[2023-10-22] MEDS: PANTOPRAZOLE 40 MG/10 ML VIAL INJ IV ONE (20:15)
[2023-10-22] MEDS: BUDESONIDE (INHALATION) 0.5 MG/2 ML NEB NEB SCH (22:00)
[2023-10-22] MEDS: levoFLOXacin 250MG 50 ML IV SCH (22:00)
[2023-10-22] MEDS: LEVALBUTEROL HCL 1.25 MG/3 ML NEB NEB SCH (22:12)
[2023-10-22] MEDS: IPRATROPIUM BROM 0.5 MG/2.5ML INH SOL NEB SCH (22:12)
[2023-10-22] MEDS: ACETYLCYSTEINE 10 %(100MG/ML) SOL 4ML NEB SCH (22:12)
[2023-10-23] VITALS (15 sets, daily range): BP systolic 92–157; BP diastolic 53–67; PULSE 62–100; RESP 16–20; TEMP 97.8–99; O2SAT 94–100
[2023-10-23] MEDS: PANTOPRAZOLE 40 MG/10 ML VIAL INJ IV SCH (08:59)
[2023-10-23] MEDS: methylPREDNISolone SOD SUCC 40 MG/ML VL IV SCH (09:03)
[2023-10-23] MEDS: MORPHINE SULFATE INJ 2 MG/ml SYRG IV PRN (10:46)
[2023-10-23 14:09] LABS: Basophils # (auto) 0 10 ^3/uL (0-0.2); Eosinophils # (auto) 0 10 ^3/uL (0-0.8); Hematocrit 37.1 % (36.0-46.0); Hemoglobin 12.2 g/dL (12.2-16.2); Lymphocytes # (auto) 0.8 10 ^3/uL (0.4-5.4); Lymphocytes % (auto) 3.9 % (10.0-50.0); Mean Corpuscular Volume 90.8 fL (80.0-100.0); Monocytes # (auto) 0.3 10 ^3/uL (0-1.3); Monocytes % (auto) 1.5 % (0.0-12.0); Neutrophils # (auto) 19.4 10 ^3/uL (1.6-8.6); Neutrophils % (auto) 94.6 % (37.0-80.0); Red Blood Cells 4.09 10^6/uL (4.0-5.20); Red Cell Distribution Width 14.7 % (11.8-14.3); White Blood Cell 20.5 10^3/uL (4.4-10.8)
[2023-10-23 14:21] LABS: Alanine Aminotransferase 10 U/L (7-40); Albumin 3.9 g/dL (3.2-4.8); Alkaline Phosphatase 66 U/L (46-116); Anion Gap 7 (5-15); Aspartate Aminotransferase 19 U/L (13-40); BUN/Creatinine Ratio 17.6 (10.0-20.0); Blood Urea Nitrogen 22 mg/dL (9-23); Calcium 9.6 mg/dL (8.7-10.4); Carbon Dioxide 27 mmol/L (20-30); Chloride 108 mmol/L (98-107); Glucose 142 mg/dL (74-106); Magnesium 2.1 mg/dL (1.6-2.6); Potassium 4.1 mmol/L (3.5-5.1); Sodium 142 mmol/L (136-145)
[2023-10-23 14:22] LABS: Bilirubin, Total 0.5 mg/dL (0.2-1.0); Phosphorus 2.6 mg/dL (2.4-5.1); Total Protein 5.8 g/dL (5.7-8.2)
[2023-10-23 14:24] LABS: Lactic Acid w/Reflex 2.1 mmol/L (0.4-2.0)
[2023-10-23] MEDS: ACETAMINOPHEN 325 MG TAB PO PRN (17:10)
[2023-10-23] MEDS: ENOXAPARIN SOD 40 MG/0.4 ML SYRINGE SC SCH (18:28)
[2023-10-23] MEDS: TAMSULOSIN HYDROCHLORIDE 0.4 MG CAP PO SCH (18:28)
[2023-10-23] MEDS: LIDOCAINE 5% TOPICAL PATCH TOP SCH (22:00)
[2023-10-24] VITALS (10 sets, daily range): BP systolic 94–110; BP diastolic 44–50; PULSE 52–76; RESP 17–19; TEMP 98.2–98.4; O2SAT 93–100
[2023-10-24 06:33] LABS: Hematocrit 34.2 % (36.0-46.0); Hemoglobin 11.4 g/dL (12.2-16.2); Mean Corpuscular Hemoglobin 29.9 pg (28.0-32.0); Mean Corpuscular Hgb Conc. 33.4 g/dL (32.0-36.0); Mean Corpuscular Volume 89.3 fL (80.0-100.0); Red Blood Cells 3.83 10^6/uL (4.0-5.20); Red Cell Distribution Width 14.7 % (11.8-14.3); White Blood Cell 13.7 10^3/uL (4.4-10.8)
[2023-10-24 06:46] LABS: Basophils % (manual) 0 (0.0-2.0); Blast Cells 0; Eosinophils % (manual) 0 (0-7); Myelocytes % 0; Promyelocytes % 0; Reactive Lymphocytes 0
[2023-10-24 07:06] LABS: Alanine Aminotransferase 12 U/L (7-40); Albumin 3.6 g/dL (3.2-4.8); Alkaline Phosphatase 60 U/L (46-116); Anion Gap 5 (5-15); Aspartate Aminotransferase 20 U/L (13-40); BUN/Creatinine Ratio 19.5 (10.0-20.0); Blood Urea Nitrogen 23 mg/dL (9-23); Calcium 9.2 mg/dL (8.5-10.1); Carbon Dioxide 28 mmol/L (20-30); Chloride 109 mmol/L (98-107); Glucose 80 mg/dL (74-106); Potassium 3.7 mmol/L (3.5-5.1); Sodium 142 mmol/L (136-145)
[2023-10-24 07:07] LABS: Bilirubin, Total 0.3 mg/dL (0.2-1.0); Phosphorus 2.7 mg/dL (2.4-5.1); Total Protein 5.3 g/dL (5.7-8.2)
[2023-10-24] MEDS ORDERED: MORPHINE SULFATE INJ 2 MG/ml SYRG IV PRN (07:30)
[2023-10-24] MEDS ORDERED: PRED20TA2 PO (07:51)
[2023-10-24] MEDS ORDERED: LEVO500T91 PO (07:51)
[2023-10-24 08:01] LABS: Band Neutrophils % (manual) 1; Lymphocytes % (manual) 21 (10.0-50.0); Metamyelocytes % 1; Monocytes % (manual) 5 (0-12); Platelet Estimate Adequate
[2023-10-24] MEDS ORDERED: METHADONE HCL 10 MG TAB PO PRN (09:45)
[2023-10-24] MEDS ORDERED: METHADONE HCL 10 MG TAB PO SCH (10:00)
[2023-10-24] MEDS: CLOPIDOGREL BISULFATE 75 MG TAB PO SCH (10:32)
[2023-10-24] MEDS: ISOSORBIDE MONONITRATE ER 60 MG TAB PO SCH (10:44)
[2023-10-24] MEDS: SACUBITRIL-VALSARTAN 24mg/26mg TAB PO SCH (10:44)
[2023-10-24] MEDS ORDERED: ATORVASTATIN 20 MG TAB PO SCH (22:00)
== END 2023-10-24 15:20 | disposition home or self-care (01) | DRG 177 ==
LOC: ER 16:37 → EDBD 16:37 → TELE 21:11 → TELE-WESTW 10-22 17:48
PROVIDERS: ADMIT Internal Medicine Pulmonary Disease; ATTEND Internal Medicine Pulmonary Disease
PROC: 05HD33Z Insertion of Infusion Device into Right Cephalic Vein, Percutaneous Approach (ICD-10-PCS; principal; 2023-10-22)
PROC: B54MZZA Ultrasonography of Right Upper Extremity Veins, Guidance (ICD-10-PCS; 2023-10-22)
DX: J15.69 Pneumonia due to other Gram-negative bacteria (principal); I50.23 Acute on chronic systolic (congestive) heart failure; J96.20 Acute and chronic respiratory failure, unspecified whether with hypoxia or hypercapnia; N17.0 Acute kidney failure with tubular necrosis; J44.1 Chronic obstructive pulmonary disease with (acute) exacerbation; N39.0 Urinary tract infection, site not specified; J44.0 Chronic obstructive pulmonary disease with (acute) lower respiratory infection; I11.0 Hypertensive heart disease with heart failure; Z66 Do not resuscitate; I25.10 Atherosclerotic heart disease of native coronary artery without angina pectoris; J15.9 Unspecified bacterial pneumonia; K21.9 Gastro-esophageal reflux disease without esophagitis; K59.00 Constipation, unspecified; E78.5 Hyperlipidemia, unspecified; M10.9 Gout, unspecified; I25.5 Ischemic cardiomyopathy; G89.29 Other chronic pain; G20.A1 Parkinson's disease without dyskinesia, without mention of fluctuations; Z95.1 Presence of aortocoronary bypass graft; Z87.442 Personal history of urinary calculi; Z79.82 Long term (current) use of aspirin; Z79.02 Long term (current) use of antithrombotics/antiplatelets; Z79.899 Other long term (current) drug therapy; Z90.710 Acquired absence of both cervix and uterus; Z90.49 Acquired absence of other specified parts of digestive tract; Z88.5 Allergy status to narcotic agent; Z83.3 Family history of diabetes mellitus; Z82.49 Family history of ischemic heart disease and other diseases of the circulatory system; Z86.16 Personal history of COVID-19; Z95.810 Presence of automatic (implantable) cardiac defibrillator; Z87.891 Personal history of nicotine dependence; Z99.3 Dependence on wheelchair; Z86.73 Personal history of transient ischemic attack (TIA), and cerebral infarction without residual deficits
CPT/HCPCS: 36415; 71045; 80053; 80061; 80307; 81001; 82140; 82306; 82607; 83605; 83735; 83880; 84100; 84443; 84484; 85007; 85025; 85027; 85610; 85730; 87040; 87081; 87086; 93005; 94640; 94644; C9113; G0378; J1100; J1956; J2405; J3490

== ENCOUNTER 2023-10-30 16:19 | Emergency (ER) | payer OTHER, MEDICAID ==
[~2023-10-30] VITALS: Ht 152.4 cm; Wt 81.8 kg
[~2023-10-30 16:19] MED LIST changes: -CLOP75TA70 PO; -LEVO250T58 PO; +LEVO500T91 PO
[2023-10-30] MEDS: IPRATROPIUM BROM 0.5 MG/2.5ML INH SOL NEB ONE (17:45)
[2023-10-30] MEDS: ALBUTEROL SULF 2.5 MG/0.5ML(0.5%) NEB SOLN NEB ONE (17:45)
[2023-10-30 19:25] LABS: Basophils # (auto) 0.1 10 ^3/uL (0-0.2); Basophils % (auto) 0.6 % (0.0-2.0); Eosinophils # (auto) 0.1 10 ^3/uL (0-0.8); Eosinophils % (auto) 1.2 % (0.0-7.0); Hematocrit 38.6 % (36.0-46.0); Hemoglobin 12.8 g/dL (12.2-16.2); Lymphocytes # (auto) 2.5 10 ^3/uL (0.4-5.4); Lymphocytes % (auto) 23.8 % (10.0-50.0); Mean Corpuscular Hemoglobin 29.7 pg (28.0-32.0); Mean Corpuscular Hgb Conc. 33.1 g/dL (32.0-36.0); Mean Corpuscular Volume 89.5 fL (80.0-100.0); Monocytes # (auto) 1.1 10 ^3/uL (0-1.3); Monocytes % (auto) 10.7 % (0.0-12.0); Neutrophils # (auto) 6.8 10 ^3/uL (1.6-8.6); Neutrophils % (auto) 63.7 % (37.0-80.0); Nucleated Red Blood Cells % 0.1 %; Red Blood Cells 4.31 10^6/uL (4.0-5.20); Red Cell Distribution Width 15.4 % (11.8-14.3); White Blood Cell 10.7 10^3/uL (4.4-10.8)
[2023-10-30 19:33] LABS: Alanine Aminotransferase 15 U/L (7-40); Albumin 3.9 g/dL (3.2-4.8); Alkaline Phosphatase 73 U/L (46-116); Anion Gap 6 (5-15); Aspartate Aminotransferase 13 U/L (13-40); BUN/Creatinine Ratio 20.2 (10.0-20.0); Bilirubin, Total 0.4 mg/dL (0.2-1.0); Blood Urea Nitrogen 23 mg/dL (9-23); Calcium 9.7 mg/dL (8.5-10.1); Carbon Dioxide 31 mmol/L (20-30); Chloride 110 mmol/L (98-107); Glucose 95 mg/dL (74-106); Magnesium 1.9 mg/dL (1.6-2.6); Potassium 4.2 mmol/L (3.5-5.1); Sodium 147 mmol/L (136-145); Total Protein 5.5 g/dL (5.7-8.2)
[2023-10-30 23:15] VITALS: RESP 20; TEMP 98.9; O2SAT 99
[2023-10-30] MEDS: OXYCODONE W/ ACETAMINOPHEN 5/325MG TABLET PO ONE (23:28)
[2023-10-30] MEDS: FUROSEMIDE 40 MG/4 ML VIAL IV ONE (23:28)
[2023-10-30] MEDS: methylPREDNISolone SOD SUCC 125 MG/2 ML VL IV ONE (23:29)
[2023-10-31 00:15] LABS: Urine Bacteria None Seen /hpf (None Seen)
[2023-10-31 00:39] LABS: Urine Blood Negative /uL (Negative); Urine Clarity Clear (Clear); Urine Color Light-Yellow (Yellow); Urine Protein, UAD Negative (Negative); Urine Specific Gravity 1.011 (1.001-1.035); Urine Urobilinogen Normal (Negative); Urine WBC 1 /hpf (0 - 5)
[2023-10-31] MEDS: HYDROcodone-ACET 5/325MG TAB PO ONE (09:55)
[2023-10-31 11:30] VITALS: BP 119/64; PULSE 82; RESP 18; O2SAT 98
[2023-10-31] MEDS: ONDANSETRON ODT 4 MG TAB ONE (11:57)
[2023-10-31] MEDS: ONDANSETRON ODT 4 MG TAB PO ONE (11:57)
[2023-10-31] MEDS: OXYCODONE W/ ACETAMINOPHEN 5/325MG TABLET PO ONE (15:46)
== END 2023-10-31 18:33 | disposition short-term general hospital (02) ==
LOC: EDBD 16:19 → ER 16:22
DX: R06.00 Dyspnea, unspecified (principal); R07.9 Chest pain, unspecified; M54.50 Low back pain, unspecified; J44.9 Chronic obstructive pulmonary disease, unspecified; F41.9 Anxiety disorder, unspecified; J45.909 Unspecified asthma, uncomplicated; I25.10 Atherosclerotic heart disease of native coronary artery without angina pectoris; I11.0 Hypertensive heart disease with heart failure; I50.9 Heart failure, unspecified; F32.A Depression, unspecified; K21.9 Gastro-esophageal reflux disease without esophagitis; M1A.9XX0 Chronic gout, unspecified, without tophus (tophi); I25.2 Old myocardial infarction; E78.5 Hyperlipidemia, unspecified; Z87.442 Personal history of urinary calculi; Z90.49 Acquired absence of other specified parts of digestive tract; Z90.710 Acquired absence of both cervix and uterus; Z90.89 Acquired absence of other organs; Z95.1 Presence of aortocoronary bypass graft; Z95.0 Presence of cardiac pacemaker; Z98.61 Coronary angioplasty status; W06.XXXA Fall from bed, initial encounter; Y93.89 Activity, other specified; Y92.238 Other place in hospital as the place of occurrence of the external cause; Y99.8 Other external cause status
CPT/HCPCS: 36415; 71045; 73030; 73060; 74176; 80053; 81001; 83605; 83735; 83880; 84484; 85025; 93005; 96374; 96375; 99285; J1940; J2919; J7644; Q0162

== ENCOUNTER 2023-11-17 12:28 | Emergency (ER) | payer OTHER, MEDICAID ==
[~2023-11-17] VITALS: Ht 162.6 cm; Wt 63.6 kg
[2023-11-17] MEDS: MORPHINE SULFATE 4 MG/ML SYR/VIAL IV ONE (13:19)
[2023-11-17] MEDS: ONDANSETRON HCL 4 MG/2 ML VIAL IV ONE (13:20)
[2023-11-17 13:28] LABS: Urine Bacteria None Seen /hpf (None Seen)
[2023-11-17 13:40] LABS: Urine Blood Negative /uL (Negative); Urine Clarity Clear (Clear); Urine Color Light-Yellow (Yellow); Urine Protein, UAD Negative (Negative); Urine Specific Gravity 1.007 (1.001-1.035); Urine Urobilinogen Normal (Negative); Urine WBC 1 /hpf (0 - 5)
[2023-11-17] MEDS: MORPHINE SULFATE 4 MG/ML SYR/VIAL IV PRN (17:16)
[2023-11-17 20:00] VITALS: TEMP 98.1
[2023-11-18 07:21] VITALS: PULSE 70; RESP 12; O2SAT 98
[2023-11-18] MEDS: ALBUTEROL SULF 2.5 MG/0.5ML(0.5%) NEB SOLN NEB ONE (08:22)
[2023-11-18] MEDS: IPRATROPIUM BROM 0.5 MG/2.5ML INH SOL NEB ONE (08:22)
[2023-11-18] MEDS: EPINEPHrine HCL 0.5 ML NEB NEB ONE (09:25)
[2023-11-18] MEDS: DexAMETHasone SOD PHOS 10MG/1ML VIAL INJ IV ONE (09:44)
[2023-11-18 09:51] VITALS: O2SAT 99
[2023-11-18 10:13] LABS: Base Excess 1.3 mmol/L (-2.0-2.0)
[2023-11-18 10:19] LABS: Basophils # (auto) 0.1 10 ^3/uL (0-0.2); Basophils % (auto) 0.6 % (0.0-2.0); Eosinophils # (auto) 0.2 10 ^3/uL (0-0.8); Eosinophils % (auto) 2.3 % (0.0-7.0); Hematocrit 41.1 % (36.0-46.0); Hemoglobin 13.4 g/dL (12.2-16.2); Lymphocytes % (auto) 45.5 % (10.0-50.0); Mean Corpuscular Hemoglobin 30.6 pg (28.0-32.0); Mean Corpuscular Hgb Conc. 32.6 g/dL (32.0-36.0); Mean Corpuscular Volume 93.8 fL (80.0-100.0); Monocytes % (auto) 11.7 % (0.0-12.0); Neutrophils # (auto) 3.5 10 ^3/uL (1.6-8.6); Neutrophils % (auto) 39.9 % (37.0-80.0); Nucleated Red Blood Cells % 0.2 %; Red Blood Cells 4.38 10^6/uL (4.0-5.20); Red Cell Distribution Width 16.3 % (11.8-14.3); White Blood Cell 8.7 10^3/uL (4.4-10.8)
[2023-11-18] MEDS: ONDANSETRON HCL 4 MG/2 ML VIAL IV ONE ×2 (10:21→13:00)
[2023-11-18 10:38] LABS: INR 1.03 (0.9-1.15); Partial Thromboplastin Time 28.7 SEC (24.5-34.5); Prothrombin Time 10.9 sec (9.3-11.8)
[2023-11-18 11:05] LABS: COVID19 ANTIGEN SOFIA FIA NEGATIVE (NEGATIVE); Rapid Influenza A Negative (Negative); Rapid Influenza B Negative (Negative)
[2023-11-18 11:27] LABS: Lactic Acid w/Reflex 2.3 mmol/L (0.4-2.0)
[2023-11-18 13:55] LABS: Alanine Aminotransferase 18 U/L (7-40); Alkaline Phosphatase 81 U/L (46-116); Anion Gap 10 (5-15); Aspartate Aminotransferase 21 U/L (13-40); BUN/Creatinine Ratio 14.4 (10.0-20.0); Bilirubin, Total 0.6 mg/dL (0.2-1.0); Blood Urea Nitrogen 15 mg/dL (9-23); Calcium 9.6 mg/dL (8.7-10.4); Carbon Dioxide 24 mmol/L (20-30); Chloride 109 mmol/L (98-107); Glucose 89 mg/dL (74-106); Potassium 3.4 mmol/L (3.5-5.1); Sodium 143 mmol/L (136-145)
[2023-11-18 14:16] VITALS: BP 110/44; PULSE 74; RESP 15
== END 2023-11-18 17:41 ==
LOC: EDUNIT# 12:28 → ER 12:28 → EDBD 12:28 → ER 11-18 17:37
DX: S33.5XXA Sprain of ligaments of lumbar spine, initial encounter (principal); S43.401A Unspecified sprain of right shoulder joint, initial encounter; G89.4 Chronic pain syndrome; J38.5 Laryngeal spasm; F41.9 Anxiety disorder, unspecified; J45.909 Unspecified asthma, uncomplicated; I25.10 Atherosclerotic heart disease of native coronary artery without angina pectoris; I11.0 Hypertensive heart disease with heart failure; I50.9 Heart failure, unspecified; J44.9 Chronic obstructive pulmonary disease, unspecified; F32.A Depression, unspecified; K21.9 Gastro-esophageal reflux disease without esophagitis; E78.5 Hyperlipidemia, unspecified; I25.2 Old myocardial infarction; M1A.9XX0 Chronic gout, unspecified, without tophus (tophi); Z90.49 Acquired absence of other specified parts of digestive tract; Z90.710 Acquired absence of both cervix and uterus; Z87.442 Personal history of urinary calculi; Z95.1 Presence of aortocoronary bypass graft; Z90.89 Acquired absence of other organs; Z95.0 Presence of cardiac pacemaker; Z88.5 Allergy status to narcotic agent; Z88.1 Allergy status to other antibiotic agents; Z88.8 Allergy status to other drugs, medicaments and biological substances; Z79.899 Other long term (current) drug therapy; Z98.61 Coronary angioplasty status; Z20.822 Contact with and (suspected) exposure to COVID-19; W06.XXXA Fall from bed, initial encounter; Y93.89 Activity, other specified; Y92.89 Other specified places as the place of occurrence of the external cause; Y99.8 Other external cause status
CPT/HCPCS: 36415; 36600; 71045; 72131; 73200; 80053; 81001; 82805; 83605; 83735; 83880; 84484; 85025; 85379; 85610; 85730; 87040; 87426; 87804; 94640; 96374; 96375; 96376; 99285; J1100; J2270; J2405; J7644

== ENCOUNTER 2023-11-21 14:30 | Inpatient (IN) | payer OTHER, MEDICAID ==
[~2023-11-21] VITALS: Ht 162.6 cm; Wt 74.5 kg
[2023-11-21] VITALS (7 sets, daily range): BP systolic 124–135; BP diastolic 64–89; PULSE 68–78; RESP 16–20; TEMP 98.1; O2SAT 98–100
[2023-11-21 15:58] LABS: Basophils # (auto) 0 10 ^3/uL (0-0.2); Basophils % (auto) 0.3 % (0.0-2.0); Eosinophils # (auto) 0.1 10 ^3/uL (0-0.8); Eosinophils % (auto) 1.3 % (0.0-7.0); Hematocrit 40.8 % (36.0-46.0); Hemoglobin 13.7 g/dL (12.2-16.2); Lymphocytes # (auto) 2.5 10 ^3/uL (0.4-5.4); Lymphocytes % (auto) 24.4 % (10.0-50.0); Mean Corpuscular Hemoglobin 30.3 pg (28.0-32.0); Mean Corpuscular Hgb Conc. 33.5 g/dL (32.0-36.0); Mean Corpuscular Volume 90.5 fL (80.0-100.0); Monocytes % (auto) 10.2 % (0.0-12.0); Neutrophils # (auto) 6.5 10 ^3/uL (1.6-8.6); Neutrophils % (auto) 63.8 % (37.0-80.0); Nucleated Red Blood Cells % 0.2 %; Red Blood Cells 4.51 10^6/uL (4.0-5.20); Red Cell Distribution Width 15.9 % (11.8-14.3); White Blood Cell 10.3 10^3/uL (4.4-10.8)
[2023-11-21 16:09] LABS: Anion Gap 10 (5-15); Carbon Dioxide 27 mmol/L (20-30); Chloride 107 mmol/L (98-107); Potassium 3.7 mmol/L (3.5-5.1); Sodium 144 mmol/L (136-145)
[2023-11-21 16:10] LABS: Calcium 9.7 mg/dL (8.5-10.1)
[2023-11-21 16:15] LABS: BUN/Creatinine Ratio 18.8 (10.0-20.0); Blood Urea Nitrogen 18 mg/dL (9-23); Glucose 100 mg/dL (74-106)
[2023-11-21 16:17] LABS: Urine Bacteria None Seen /hpf (None Seen)
[2023-11-21 16:33] LABS: Urine Blood Negative /uL (Negative); Urine Clarity Clear (Clear); Urine Color Light-Yellow (Yellow); Urine Protein, UAD Negative (Negative); Urine Specific Gravity 1.011 (1.001-1.035); Urine Urobilinogen Normal (Negative); Urine WBC 1 /hpf (0 - 5); Urine pH 5.5 (5.0-9.0)
[2023-11-21] MEDS ORDERED: MILK OF MAGNESIA 30ML SUSP PO PRN (18:00)
[2023-11-21] MEDS ORDERED: MORPHINE SULFATE 15 MG PO PRN (18:00)
[2023-11-21] MEDS ORDERED: ACETAMINOPHEN 325 MG TAB PO PRN (18:00)
[2023-11-21] MEDS ORDERED: TAMSULOSIN HYDROCHLORIDE 0.4 MG CAP PO SCH ×2 (18:00→18:15)
[2023-11-21] MEDS ORDERED: NITROGLYCERIN 0.4 MG SL TAB SL PRN (18:00)
[2023-11-21] MEDS ORDERED: CLONAZEPAM 0.5 MG PO PRN (18:00)
[2023-11-21] MEDS: MORPHINE SULFATE INJ 2 MG/ml SYRG IV PRN ×2 (18:22→22:09)
[2023-11-21 18:30] LABS: Triglycerides 212 mg/dL (< 150)
[2023-11-21 18:31] LABS: LDL Cholesterol 101 mg/dL (< 100)
[2023-11-21 18:32] LABS: Cholesterol 179 mg/dL (< 200); HDL Cholesterol 62 mg/dL (40-59)
[2023-11-21 19:52] LABS: Amphetamine Screen, Urine Neg (NEGATIVE); Barbiturate Scree,Urine Neg (NEGATIVE); Benzodiazephine Screen, Urine Neg (NEGATIVE); Cannabinoid Screen, Urine Neg (NEGATIVE); Cocaine Screen, Urine Neg (NEGATIVE); Opiate Scree,Urine Neg (NEGATIVE); Phencyclidine Screen, Urine Neg (NEGATIVE)
[2023-11-21] MEDS: ONDANSETRON HCL 4 MG/2 ML VIAL IV ONE (19:53)
[2023-11-21] MEDS: CLOPIDOGREL BISULFATE 75 MG TAB PO ONE (19:54)
[2023-11-21] MEDS: CARVEDILOL 3.125 MG TAB PO SCH (21:49)
[2023-11-21] MEDS: DOCUSATE SOD 100 MG CAP PO SCH (21:53)
[2023-11-21] MEDS: ASCORBIC ACID 500 MG TAB PO SCH (21:53)
[2023-11-21] MEDS: MORPHINE SULF 15mg ER tab PO SCH (21:55)
[2023-11-21] MEDS: LACTOBACILLUS ACIDOPHILUS PO SCH (21:58)
[2023-11-21] MEDS ORDERED: PATIENTS OWN MEDICATION (Cholecalciferol (Vitamin D3) 1 TAB) PO SCH (22:00)
[2023-11-21] MEDS ORDERED: CRANBERRY EXTRACT 450 MG PO SCH (22:00)
[2023-11-21] MEDS ORDERED: LACTOBACILLUS ACIDOPHILUS PO SCH (22:00)
[2023-11-21] MEDS: SACUBITRIL-VALSARTAN 24mg/26mg TAB PO SCH (22:08)
[2023-11-21] MEDS: RANOLAZINE ER 500 MG TAB PO SCH (22:08)
[2023-11-21] MEDS: ALBUTEROL SULF 2.5 MG/0.5ML(0.5%) NEB SOLN NEB PRN (22:25)
[2023-11-22] VITALS (13 sets, daily range): BP systolic 94–160; BP diastolic 55–69; PULSE 62–99; RESP 15–20; TEMP 97.8–98.2; O2SAT 94–99
[2023-11-22 08:19] LABS: Basophils # (auto) 0 10 ^3/uL (0-0.2); Basophils % (auto) 0.5 % (0.0-2.0); Eosinophils # (auto) 0.1 10 ^3/uL (0-0.8); Eosinophils % (auto) 1.8 % (0.0-7.0); Hematocrit 38.7 % (36.0-46.0); Hemoglobin 13.1 g/dL (12.2-16.2); Lymphocytes # (auto) 2.4 10 ^3/uL (0.4-5.4); Lymphocytes % (auto) 30.3 % (10.0-50.0); Mean Corpuscular Hemoglobin 30.7 pg (28.0-32.0); Mean Corpuscular Hgb Conc. 33.8 g/dL (32.0-36.0); Mean Corpuscular Volume 90.7 fL (80.0-100.0); Monocytes # (auto) 0.8 10 ^3/uL (0-1.3); Neutrophils # (auto) 4.5 10 ^3/uL (1.6-8.6); Neutrophils % (auto) 57.4 % (37.0-80.0); Nucleated Red Blood Cells % 0.1 %; Red Blood Cells 4.27 10^6/uL (4.0-5.20); Red Cell Distribution Width 15.4 % (11.8-14.3); White Blood Cell 7.9 10^3/uL (4.4-10.8)
[2023-11-22 08:27] LABS: Alanine Aminotransferase 11 U/L (7-40); Albumin 3.8 g/dL (3.2-4.8); Alkaline Phosphatase 77 U/L (46-116); Anion Gap 5 (5-15); Aspartate Aminotransferase 14 U/L (13-40); Blood Urea Nitrogen 12 mg/dL (9-23); Calcium 9.2 mg/dL (8.5-10.1); Carbon Dioxide 29 mmol/L (20-30); Chloride 108 mmol/L (98-107); Glucose 96 mg/dL (74-106); Potassium 3.2 mmol/L (3.5-5.1); Sodium 142 mmol/L (136-145)
[2023-11-22 08:28] LABS: Bilirubin, Total 0.6 mg/dL (0.2-1.0); Total Protein 5.7 g/dL (5.7-8.2)
[2023-11-22] MEDS: CHOLECALCIFEROL (VITD3) 1,000UNIT=25mCg TAB PO SCH (09:12)
[2023-11-22] MEDS: FUROSEMIDE 40 MG TAB PO SCH (09:13)
[2023-11-22] MEDS: MULTIPLE VITAMIN TAB PO SCH (09:13)
[2023-11-22] MEDS: CLOPIDOGREL BISULFATE 75 MG TAB PO SCH (09:14)
[2023-11-22] MEDS: ASPirin-EC 81 mg tab PO SCH (09:14)
[2023-11-22] MEDS: FLUoxetine HCL 20 MG CAP PO SCH (09:14)
[2023-11-22] MEDS: PANTOPRAZOLE 40 MG TAB PO SCH (09:14)
[2023-11-22] MEDS: ENOXAPARIN SOD 40 MG/0.4 ML SYRINGE SC SCH (09:15)
[2023-11-22] MEDS ORDERED: PATIENTS OWN MEDICATION (Fluoxetine HCl (Pmdd) (Fluoxetine HCl) 20 MG) PO SCH (10:00)
[2023-11-22] MEDS ORDERED: ALBUTEROL SULF 2.5 MG/0.5ML(0.5%) NEB SOLN NEB PRN (10:45)
[2023-11-22] MEDS ORDERED: IPRATROPIUM BROM 0.5 MG/2.5ML INH SOL NEB PRN (10:45)
[2023-11-22] MEDS: methylPREDNISolone SOD SUCC 125 MG/2 ML VL IV ONE (12:36)
[2023-11-22] MEDS: POTASSIUM CHL 20 Meq TABLET PO ONE (12:37)
[2023-11-22] MEDS: DOXYCYCLINE 100 MG TAB/CAP PO ONE (12:37)
[2023-11-22] MEDS: ONDANSETRON HCL 4 MG/2 ML VIAL IV PRN (13:04)
[2023-11-22] MEDS: AMITRIPTYLINE HCL 10 MG TAB PO SCH (22:44)
[2023-11-22] MEDS: methylPREDNISolone SOD SUCC 40 MG/ML VL IV SCH (22:44)
[2023-11-22] MEDS: ATORVASTATIN 20 MG TAB PO SCH (22:45)
[2023-11-22] MEDS: DOXYCYCLINE 100 MG TAB/CAP PO SCH (22:45)
[2023-11-23] VITALS (14 sets, daily range): BP systolic 96–121; BP diastolic 46–75; PULSE 63–83; RESP 14–20; TEMP 97.7–98.4; O2SAT 95–99
[2023-11-23] MEDS: CLOPIDOGREL BISULFATE 75 MG TAB PO SCH (10:24)
[2023-11-23 11:26] LABS: Chloride 105 mmol/L (98-107); Potassium 4.1 mmol/L (3.5-5.1); Sodium 140 mmol/L (136-145)
[2023-11-23 11:27] LABS: Anion Gap 6 (5-15); Carbon Dioxide 29 mmol/L (20-30)
[2023-11-23 11:32] LABS: Glucose 131 mg/dL (74-106)
[2023-11-23 11:33] LABS: BUN/Creatinine Ratio 14.6 (10.0-20.0); Blood Urea Nitrogen 15 mg/dL (9-23); Magnesium 1.9 mg/dL (1.6-2.6)
[2023-11-23] MEDS: clonazePAM 0.5 MG TAB PO PRN (17:36)
[2023-11-23] MEDS: ALBUTEROL SULF 2.5 MG/0.5ML(0.5%) NEB SOLN NEB SCH (18:07)
[2023-11-23] MEDS: IPRATROPIUM BROM 0.5 MG/2.5ML INH SOL NEB SCH (18:07)
[2023-11-24] VITALS (22 sets, daily range): BP systolic 106–110; BP diastolic 54–72; PULSE 66–88; RESP 16–24; TEMP 98–98.7; O2SAT 83–100
[2023-11-24] MEDS: guaiFENesin-DM 100/10mg/5ml SYR PO PRN (09:14)
[2023-11-25] VITALS (23 sets, daily range): BP systolic 109–125; BP diastolic 47–58; PULSE 68–85; RESP 16–19; TEMP 97.6–98.5; O2SAT 91–100
[2023-11-26] VITALS (13 sets, daily range): BP systolic 94–125; BP diastolic 51–73; PULSE 59–82; RESP 18–20; TEMP 97.9–98.7; O2SAT 94–100
[2023-11-26 07:29] LABS: Anion Gap 6 (5-15); Calcium 9.5 mg/dL (8.5-10.1); Carbon Dioxide 29 mmol/L (20-30); Chloride 104 mmol/L (98-107); Potassium 4.2 mmol/L (3.5-5.1); Sodium 139 mmol/L (136-145)
[2023-11-26 07:35] LABS: BUN/Creatinine Ratio 18.3 (10.0-20.0); Blood Urea Nitrogen 24 mg/dL (9-23); Glucose 141 mg/dL (74-106)
[2023-11-26] MEDS ORDERED: DOXY1CAP57 PO (09:33)
[2023-11-26] MEDS ORDERED: CLOP75TA70 PO (09:33)
[2023-11-26] MEDS ORDERED: METH4PAK PO (09:33)
== END 2023-11-26 18:00 | disposition home or self-care (01) | DRG 191 ==
LOC: EDBD 14:30 → ER 14:30 → TELE 17:55 → TELE-CENTR 20:55
PROVIDERS: ADMIT Nurse Practitioner Family; ATTEND Internal Medicine Geriatric Medicine
PROC: 4B02XTZ Measurement of Cardiac Defibrillator, External Approach (ICD-10-PCS; principal; 2023-11-25)
DX: J44.1 Chronic obstructive pulmonary disease with (acute) exacerbation (principal); J96.10 Chronic respiratory failure, unspecified whether with hypoxia or hypercapnia; I25.5 Ischemic cardiomyopathy; Z66 Do not resuscitate; I11.0 Hypertensive heart disease with heart failure; K21.9 Gastro-esophageal reflux disease without esophagitis; M10.9 Gout, unspecified; I25.10 Atherosclerotic heart disease of native coronary artery without angina pectoris; E78.5 Hyperlipidemia, unspecified; F32.A Depression, unspecified; G89.29 Other chronic pain; K57.30 Diverticulosis of large intestine without perforation or abscess without bleeding; J43.9 Emphysema, unspecified; K59.00 Constipation, unspecified; Z82.49 Family history of ischemic heart disease and other diseases of the circulatory system; Z79.82 Long term (current) use of aspirin; Z79.899 Other long term (current) drug therapy; Z79.02 Long term (current) use of antithrombotics/antiplatelets; Z99.81 Dependence on supplemental oxygen; Z95.1 Presence of aortocoronary bypass graft; Z88.5 Allergy status to narcotic agent; I25.2 Old myocardial infarction; Z87.442 Personal history of urinary calculi; Z83.3 Family history of diabetes mellitus; Z86.16 Personal history of COVID-19; Z86.73 Personal history of transient ischemic attack (TIA), and cerebral infarction without residual deficits; Z87.891 Personal history of nicotine dependence; Z90.49 Acquired absence of other specified parts of digestive tract; Z90.710 Acquired absence of both cervix and uterus; Z95.810 Presence of automatic (implantable) cardiac defibrillator; Z99.3 Dependence on wheelchair; Z87.440 Personal history of urinary (tract) infections
CPT/HCPCS: 36415; 80048; 80053; 80061; 80307; 81001; 83735; 83880; 84443; 84484; 85025; 87081; 93005; 93306; 94640; 97110; 97163; 97530; G0378; J2405

== ENCOUNTER 2023-11-30 14:05 | Inpatient (IN) | payer OTHER, MEDICAID ==
[~2023-11-30] VITALS: Ht 162.6 cm; Wt 74.4 kg
[~2023-11-30 14:05] MED LIST changes: +CLOP75TA70 PO; +DOXY1CAP57 PO; -LEVO500T91 PO; +METH4PAK PO; -PRED20TA2 PO
[2023-11-30 14:48] VITALS: PULSE 74; RESP 20; O2SAT 98
[2023-11-30] MEDS: IPRATROPIUM BROM 0.5 MG/2.5ML INH SOL NEB ONE ×2 (15:05→17:51)
[2023-11-30] MEDS: ALBUTEROL SULF 2.5 MG/0.5ML(0.5%) NEB SOLN NEB ONE ×2 (15:05→17:51)
[2023-11-30 15:25] LABS: Urine Bacteria None Seen /hpf (None Seen)
[2023-11-30] MEDS: methylPREDNISolone SOD SUCC 125 MG/2 ML VL IV ONE (15:27)
[2023-11-30 15:32] LABS: Basophils # (auto) 0 10 ^3/uL (0-0.2); Basophils % (auto) 0.3 % (0.0-2.0); Eosinophils # (auto) 0.1 10 ^3/uL (0-0.8); Eosinophils % (auto) 0.6 % (0.0-7.0); Hematocrit 44.8 % (36.0-46.0); Hemoglobin 14.8 g/dL (12.2-16.2); Lymphocytes % (auto) 17.2 % (10.0-50.0); Mean Corpuscular Hemoglobin 30.2 pg (28.0-32.0); Mean Corpuscular Hgb Conc. 33.1 g/dL (32.0-36.0); Mean Corpuscular Volume 91.3 fL (80.0-100.0); Monocytes # (auto) 1.5 10 ^3/uL (0-1.3); Monocytes % (auto) 8.7 % (0.0-12.0); Neutrophils # (auto) 12.9 10 ^3/uL (1.6-8.6); Neutrophils % (auto) 73.2 % (37.0-80.0); Nucleated Red Blood Cells % 0.2 %; Red Blood Cells 4.91 10^6/uL (4.0-5.20); Red Cell Distribution Width 15.6 % (11.8-14.3); White Blood Cell 17.7 10^3/uL (4.4-10.8)
[2023-11-30 15:33] LABS: Urine Blood Negative /uL (Negative); Urine Clarity Turbid (Clear); Urine Color Yellow (Yellow); Urine Hyaline Cast MOD /lpf (0 - 2); Urine Mucus FEW (None Seen); Urine Protein, UAD TRACE (Negative); Urine Specific Gravity 1.016 (1.001-1.035); Urine Urobilinogen Normal (Negative); Urine WBC 7 /hpf (0 - 5); Urine pH 5.5 (5.0-9.0)
[2023-11-30 15:39] LABS: Calcium 9.7 mg/dL (8.7-10.4); Chloride 104 mmol/L (98-107); Potassium 3.5 mmol/L (3.5-5.1); Sodium 140 mmol/L (136-145)
[2023-11-30 15:40] LABS: Anion Gap 7 (5-15); Carbon Dioxide 29 mmol/L (20-30)
[2023-11-30 15:45] LABS: BUN/Creatinine Ratio 15.7 (10.0-20.0); Blood Urea Nitrogen 22 mg/dL (9-23); Glucose 120 mg/dL (74-106)
[2023-11-30] MEDS ORDERED: MORPHINE SULFATE INJ 2 MG/ml SYRG IV PRN (17:30)
[2023-11-30] MEDS: guaiFENesin-DM 100/10mg/5ml SYR PO ONE (17:30)
[2023-11-30] MEDS ORDERED: NITROGLYCERIN 0.4 MG SL TAB SL PRN (17:30)
[2023-11-30] MEDS ORDERED: DOCUSATE SOD 100 MG CAP PO PRN (17:30)
[2023-11-30 18:16] VITALS: BP 122/71; PULSE 74; RESP 18; TEMP 98.7; O2SAT 94
[2023-11-30] MEDS: TAMSULOSIN HYDROCHLORIDE 0.4 MG CAP PO SCH (18:16)
[2023-11-30] MEDS: ONDANSETRON HCL 4 MG/2 ML VIAL IV PRN (18:16)
[2023-11-30] MEDS: MORPHINE SULFATE INJ 2 MG/ml SYRG IV PRN (18:16)
[2023-11-30 19:30] VITALS: PULSE 76; RESP 18; O2SAT 98
[2023-11-30] MEDS: IPRATROPIUM BROM 0.5 MG/2.5ML INH SOL ONE (19:30)
[2023-11-30] MEDS: ALBUTEROL SULF 2.5 MG/0.5ML(0.5%) NEB SOLN ONE (19:30)
[2023-11-30] MEDS: SODIUM CHLORIDE 0.9% 500 ML IV ONE (20:19)
[2023-11-30] MEDS: NOREPINEPHRINE 8 MG/250ML KIT 250 ML IV ONE (21:03)
[2023-11-30] MEDS: NOREPINEPHRINE 8 MG/250ML KIT 250 ML IV SCH (21:15)
[2023-11-30] MEDS: AMITRIPTYLINE HCL 10 MG TAB PO SCH (22:00)
[2023-11-30] MEDS: [UNRECOGNIZED DRUG - MIXTURE] IN SCH (22:00)
[2023-11-30] MEDS: LACTOBACILLUS ACIDOPHILUS PO SCH (22:00)
[2023-11-30] MEDS: CARVEDILOL 3.125 MG TAB PO SCH (22:00)
[2023-11-30] MEDS: SACUBITRIL-VALSARTAN 24mg/26mg TAB PO SCH (22:17)
[2023-11-30] MEDS: methylPREDNISolone SOD SUCC 125 MG/2 ML VL IV SCH (22:17)
[2023-11-30] MEDS: clonazePAM 0.5 MG TAB PO PRN (22:18)
[2023-11-30] MEDS: DOCUSATE SOD 100 MG CAP PO SCH (22:19)
[2023-11-30] MEDS: RANOLAZINE ER 500 MG TAB PO SCH (22:19)
[2023-11-30] MEDS: CHOLECALCIFEROL (VITD3) 1,000UNIT=25mCg TAB PO SCH (22:20)
[2023-11-30] MEDS: ASCORBIC ACID 500 MG TAB PO SCH (22:20)
[2023-11-30 22:48] VITALS: PULSE 71; RESP 18; O2SAT 96
[2023-11-30] MEDS: IPRATROPIUM BROM 0.5 MG/2.5ML INH SOL NEB PRN (22:48)
[2023-11-30] MEDS: ALBUTEROL SULF 2.5 MG/0.5ML(0.5%) NEB SOLN NEB PRN (22:48)
[2023-11-30 22:53] VITALS: PULSE 72; RESP 20; O2SAT 99
[2023-11-30] MEDS ORDERED: guaiFENesin-DM 100/10mg/5ml SYR PO PRN (23:30)
[2023-12-01 04:26] LABS: Basophils # (auto) 0.1 10 ^3/uL (0-0.2); Basophils % (auto) 0.6 % (0.0-2.0); Eosinophils # (auto) 0 10 ^3/uL (0-0.8); Hematocrit 39.8 % (36.0-46.0); Hemoglobin 13.5 g/dL (12.2-16.2); Lymphocytes # (auto) 1.1 10 ^3/uL (0.4-5.4); Lymphocytes % (auto) 8.9 % (10.0-50.0); Mean Corpuscular Hemoglobin 30.8 pg (28.0-32.0); Mean Corpuscular Hgb Conc. 34.1 g/dL (32.0-36.0); Mean Corpuscular Volume 90.5 fL (80.0-100.0); Monocytes # (auto) 0.1 10 ^3/uL (0-1.3); Monocytes % (auto) 1.2 % (0.0-12.0); Neutrophils # (auto) 10.6 10 ^3/uL (1.6-8.6); Neutrophils % (auto) 89.3 % (37.0-80.0); Red Cell Distribution Width 15.3 % (11.8-14.3); White Blood Cell 11.9 10^3/uL (4.4-10.8)
[2023-12-01 04:45] LABS: Alanine Aminotransferase 13 U/L (7-40); Albumin 3.8 g/dL (3.2-4.8); Alkaline Phosphatase 69 U/L (46-116); Anion Gap 8 (5-15); Aspartate Aminotransferase 27 U/L (13-40); BUN/Creatinine Ratio 21.1 (10.0-20.0); Blood Urea Nitrogen 27 mg/dL (9-23); Calcium 9.2 mg/dL (8.5-10.1); Carbon Dioxide 28 mmol/L (20-30); Chloride 103 mmol/L (98-107); Glucose 204 mg/dL (74-106); Sodium 139 mmol/L (136-145)
[2023-12-01 04:46] LABS: Bilirubin, Total 0.6 mg/dL (0.2-1.0); Total Protein 5.8 g/dL (5.7-8.2)
[2023-12-01 05:45] VITALS: PULSE 61; RESP 18; O2SAT 99
[2023-12-01 06:00] VITALS: PULSE 75; RESP 20; O2SAT 99
[2023-12-01] MEDS: ACETAMINOPHEN 325 MG TAB PO PRN (07:57)
[2023-12-01 09:48] VITALS: PULSE 68; RESP 20; O2SAT 96
[2023-12-01] MEDS: FUROSEMIDE 40 MG TAB PO SCH (10:00)
[2023-12-01 11:02] LABS: Urine Bacteria None Seen /hpf (None Seen)
[2023-12-01] MEDS: ASPirin-EC 81 mg tab PO SCH (11:12)
[2023-12-01] MEDS: DOXYCYCLINE 100MG/250ML 250 ML IV SCH (11:12)
[2023-12-01] MEDS: MULTIPLE VITAMIN TAB PO SCH (11:12)
[2023-12-01] MEDS: ENOXAPARIN SOD 40 MG/0.4 ML SYRINGE SC SCH (11:13)
[2023-12-01] MEDS: FLUoxetine HCL 20 MG CAP PO SCH (11:13)
[2023-12-01] MEDS: PANTOPRAZOLE 40 MG TAB PO SCH (11:15)
[2023-12-01] MEDS: CLOPIDOGREL BISULFATE 75 MG TAB PO SCH (11:16)
[2023-12-01 11:38] LABS: Urine Blood Negative /uL (Negative); Urine Clarity Clear (Clear); Urine Color Yellow (Yellow); Urine Protein, UAD Negative (Negative); Urine Specific Gravity 1.022 (1.001-1.035); Urine Urobilinogen Normal (Negative); Urine WBC 1 /hpf (0 - 5); Urine pH 5.5 (5.0-9.0)
[2023-12-01 21:52] VITALS: BP 112/49; PULSE 70; RESP 19; TEMP 98; O2SAT 96
[2023-12-01 22:00] VITALS: BP 112/49; PULSE 70; RESP 19; TEMP 98; O2SAT 96
[2023-12-01] MEDS: ATORVASTATIN 20 MG TAB PO SCH (22:21)
[2023-12-02] VITALS (12 sets, daily range): BP systolic 93–122; BP diastolic 31–59; PULSE 70–81; RESP 16–20; TEMP 97.6–98.2; O2SAT 93–98
[2023-12-02 06:54] LABS: Basophils # (auto) 0 10 ^3/uL (0-0.2); Basophils % (auto) 0.1 % (0.0-2.0); Eosinophils # (auto) 0 10 ^3/uL (0-0.8); Hematocrit 39.2 % (36.0-46.0); Hemoglobin 13.4 g/dL (12.2-16.2); Lymphocytes # (auto) 1.1 10 ^3/uL (0.4-5.4); Lymphocytes % (auto) 6.3 % (10.0-50.0); Mean Corpuscular Hgb Conc. 34.2 g/dL (32.0-36.0); Mean Corpuscular Volume 90.6 fL (80.0-100.0); Monocytes # (auto) 0.3 10 ^3/uL (0-1.3); Monocytes % (auto) 1.9 % (0.0-12.0); Neutrophils # (auto) 16.1 10 ^3/uL (1.6-8.6); Neutrophils % (auto) 91.7 % (37.0-80.0); Red Blood Cells 4.32 10^6/uL (4.0-5.20); Red Cell Distribution Width 15.6 % (11.8-14.3); White Blood Cell 17.6 10^3/uL (4.4-10.8)
[2023-12-02 07:16] LABS: Alkaline Phosphatase 64 U/L (46-116)
[2023-12-02 07:17] LABS: Alanine Aminotransferase 12 U/L (7-40); Albumin 3.6 g/dL (3.2-4.8); Anion Gap 6 (5-15); Aspartate Aminotransferase 17 U/L (13-40); BUN/Creatinine Ratio 16.7 (10.0-20.0); Bilirubin, Total 0.6 mg/dL (0.2-1.0); Blood Urea Nitrogen 20 mg/dL (9-23); Calcium 9.5 mg/dL (8.7-10.4); Carbon Dioxide 26 mmol/L (20-30); Chloride 104 mmol/L (98-107); Glucose 128 mg/dL (74-106); Potassium 3.8 mmol/L (3.5-5.1); Sodium 136 mmol/L (136-145); Total Protein 5.7 g/dL (5.7-8.2)
[2023-12-03] VITALS (13 sets, daily range): BP systolic 91–131; BP diastolic 48–63; PULSE 52–101; RESP 16–20; TEMP 97.8–98.9; O2SAT 91–100
[2023-12-03 08:18] LABS: Basophils # (auto) 0.1 10 ^3/uL (0-0.2); Basophils % (auto) 0.3 % (0.0-2.0); Eosinophils # (auto) 0 10 ^3/uL (0-0.8); Eosinophils % (auto) 0.1 % (0.0-7.0); Hematocrit 38.6 % (36.0-46.0); Hemoglobin 12.9 g/dL (12.2-16.2); Lymphocytes # (auto) 2.6 10 ^3/uL (0.4-5.4); Lymphocytes % (auto) 15.2 % (10.0-50.0); Mean Corpuscular Hemoglobin 30.6 pg (28.0-32.0); Mean Corpuscular Hgb Conc. 33.4 g/dL (32.0-36.0); Mean Corpuscular Volume 91.7 fL (80.0-100.0); Monocytes # (auto) 1.4 10 ^3/uL (0-1.3); Monocytes % (auto) 8.3 % (0.0-12.0); Neutrophils # (auto) 13.2 10 ^3/uL (1.6-8.6); Neutrophils % (auto) 76.1 % (37.0-80.0); Red Blood Cells 4.21 10^6/uL (4.0-5.20); Red Cell Distribution Width 15.5 % (11.8-14.3); White Blood Cell 17.3 10^3/uL (4.4-10.8)
[2023-12-03 08:27] LABS: Anion Gap 3 (5-15); Carbon Dioxide 30 mmol/L (20-30); Chloride 106 mmol/L (98-107); Potassium 3.6 mmol/L (3.5-5.1); Sodium 139 mmol/L (136-145)
[2023-12-03 08:28] LABS: Calcium 9.1 mg/dL (8.5-10.1)
[2023-12-03 08:33] LABS: Blood Urea Nitrogen 28 mg/dL (9-23); Glucose 94 mg/dL (74-106)
[2023-12-03] MEDS: methylPREDNISolone SOD SUCC 125 MG/2 ML VL IV SCH (09:22)
[2023-12-04] VITALS (11 sets, daily range): BP systolic 94–122; BP diastolic 51–66; PULSE 58–89; RESP 16–20; TEMP 37.1; O2SAT 93–100
[2023-12-04 07:29] LABS: Hematocrit 40.6 % (36.0-46.0); Hemoglobin 13.7 g/dL (12.2-16.2); Mean Corpuscular Hemoglobin 30.6 pg (28.0-32.0); Mean Corpuscular Hgb Conc. 33.6 g/dL (32.0-36.0); Mean Corpuscular Volume 91.1 fL (80.0-100.0); Red Blood Cells 4.46 10^6/uL (4.0-5.20); Red Cell Distribution Width 15.4 % (11.8-14.3)
[2023-12-04 07:32] LABS: Basophils % (manual) 0 (0.0-2.0); Blast Cells 0; Eosinophils % (manual) 0 (0-7); Metamyelocytes % 0; Myelocytes % 0; Promyelocytes % 0; Reactive Lymphocytes 0
[2023-12-04 07:33] LABS: Chloride 104 mmol/L (98-107); Potassium 3.9 mmol/L (3.5-5.1); Sodium 139 mmol/L (136-145)
[2023-12-04 07:34] LABS: Anion Gap 6 (5-15); Calcium 9.4 mg/dL (8.5-10.1); Carbon Dioxide 29 mmol/L (20-30)
[2023-12-04 07:39] LABS: BUN/Creatinine Ratio 24.6 (10.0-20.0); Blood Urea Nitrogen 31 mg/dL (9-23); Glucose 84 mg/dL (74-106)
[2023-12-04 08:14] LABS: Band Neutrophils % (manual) 8; Lymphocytes % (manual) 28 (10.0-50.0); Monocytes % (manual) 5 (0-12); Platelet Estimate Adequate
[2023-12-04] MEDS: ENOXAPARIN SOD 30 MG/0.3 ML SYRINGE SC SCH (10:00)
[2023-12-04] MEDS ORDERED: PRED20TA2 PO (13:05)
== END 2023-12-04 19:32 | disposition home or self-care (01) | DRG 189 ==
LOC: ER 14:05 → EDBD 14:05 → TELE 17:36 → TELE-EAST 12-01 21:00
PROVIDERS: ADMIT Nurse Practitioner Family; ATTEND Internal Medicine Pulmonary Disease
PROC: 05HF33Z Insertion of Infusion Device into Left Cephalic Vein, Percutaneous Approach (ICD-10-PCS; principal; 2023-11-30)
PROC: B54NZZA Ultrasonography of Left Upper Extremity Veins, Guidance (ICD-10-PCS; 2023-11-30)
PROC: 05HD33Z Insertion of Infusion Device into Right Cephalic Vein, Percutaneous Approach (ICD-10-PCS; 2023-12-01)
PROC: B54MZZA Ultrasonography of Right Upper Extremity Veins, Guidance (ICD-10-PCS; 2023-12-01)
DX: J96.21 Acute and chronic respiratory failure with hypoxia (principal); I50.23 Acute on chronic systolic (congestive) heart failure; J44.1 Chronic obstructive pulmonary disease with (acute) exacerbation; I13.0 Hypertensive heart and chronic kidney disease with heart failure and stage 1 through stage 4 chronic kidney disease, or unspecified chronic kidney disease; J98.11 Atelectasis; N17.9 Acute kidney failure, unspecified; J40 Bronchitis, not specified as acute or chronic; E78.5 Hyperlipidemia, unspecified; F32.A Depression, unspecified; K57.30 Diverticulosis of large intestine without perforation or abscess without bleeding; F41.9 Anxiety disorder, unspecified; I25.10 Atherosclerotic heart disease of native coronary artery without angina pectoris; K21.9 Gastro-esophageal reflux disease without esophagitis; Z66 Do not resuscitate; I25.5 Ischemic cardiomyopathy; M1A.9XX0 Chronic gout, unspecified, without tophus (tophi); J43.9 Emphysema, unspecified; K59.00 Constipation, unspecified; G89.4 Chronic pain syndrome; N20.0 Calculus of kidney; N18.9 Chronic kidney disease, unspecified; Z88.1 Allergy status to other antibiotic agents; Z79.899 Other long term (current) drug therapy; Z79.02 Long term (current) use of antithrombotics/antiplatelets; Z99.81 Dependence on supplemental oxygen; Z95.1 Presence of aortocoronary bypass graft; Z90.710 Acquired absence of both cervix and uterus; Z90.49 Acquired absence of other specified parts of digestive tract; Z87.442 Personal history of urinary calculi; Z83.3 Family history of diabetes mellitus; Z82.49 Family history of ischemic heart disease and other diseases of the circulatory system; Z86.73 Personal history of transient ischemic attack (TIA), and cerebral infarction without residual deficits; Z88.5 Allergy status to narcotic agent; Z79.82 Long term (current) use of aspirin; Z87.891 Personal history of nicotine dependence; Z99.3 Dependence on wheelchair
CPT/HCPCS: 36415; 71045; 80048; 80053; 81001; 83880; 84484; 85007; 85025; 85027; 87081; 87086; 93005; 94640; 96361; 96372; 96374; 96375; 97110; 97116; 97163; 97530; 99291; G0378; J2405; J3490

== ENCOUNTER 2024-01-27 14:50 | Inpatient (IN) | payer OTHER, MEDICAID ==
[~2024-01-27] VITALS: Ht 162.6 cm; Wt 73.5 kg
[~2024-01-27 14:50] MED LIST changes: -CRAN450T PO; -MAGN400S25 PO; -METH4PAK PO; +MORP1TAB12 PO; +POLY335015 PO; +PRED20TA2 PO
[2024-01-27] MEDS: methylPREDNISolone SOD SUCC 125 MG/2 ML VL IV ONE (16:22)
[2024-01-27] MEDS: ALBUTEROL SULF 2.5 MG/0.5ML(0.5%) NEB SOLN NEB ONE (16:30)
[2024-01-27] MEDS: IPRATROPIUM BROM 0.5 MG/2.5ML INH SOL NEB ONE (16:31)
[2024-01-27 17:17] LABS: Basophils # (auto) 0.1 10 ^3/uL (0-0.2); Basophils % (auto) 0.8 % (0.0-2.0); Eosinophils # (auto) 0.1 10 ^3/uL (0-0.8); Eosinophils % (auto) 1.6 % (0.0-7.0); Hematocrit 41.1 % (36.0-46.0); Hemoglobin 13.7 g/dL (12.2-16.2); Lymphocytes # (auto) 3.3 10 ^3/uL (0.4-5.4); Lymphocytes % (auto) 36.6 % (10.0-50.0); Mean Corpuscular Hemoglobin 31.7 pg (28.0-32.0); Mean Corpuscular Hgb Conc. 33.4 g/dL (32.0-36.0); Mean Corpuscular Volume 94.9 fL (80.0-100.0); Monocytes # (auto) 1.1 10 ^3/uL (0-1.3); Monocytes % (auto) 12.5 % (0.0-12.0); Neutrophils # (auto) 4.4 10 ^3/uL (1.6-8.6); Neutrophils % (auto) 48.5 % (37.0-80.0); Nucleated Red Blood Cells % 0.4 %; Platelet Count (auto) 390 10^3/uL (140-450); Red Blood Cells 4.33 10^6/uL (4.0-5.20); Red Cell Distribution Width 15.7 % (11.8-14.3)
[2024-01-27 17:23] LABS: Urine Bacteria MOD /hpf (None Seen); Urine Blood Negative /uL (Negative); Urine Clarity Turbid (Clear); Urine Color Light-Orange (Yellow); Urine Hyaline Cast FEW /lpf (0 - 2); Urine Mucus FEW (None Seen); Urine Protein, UAD Negative (Negative); Urine Specific Gravity 1.011 (1.001-1.035); Urine Urobilinogen Normal (Negative); Urine WBC 34 /hpf (0 - 5); Urine pH 6.5 (5.0-9.0)
[2024-01-27 17:36] LABS: INR 1.01 (0.9-1.15); Partial Thromboplastin Time 23.1 SEC (24.5-34.5); Prothrombin Time 10.7 sec (9.3-11.8)
[2024-01-27 17:49] LABS: Alanine Aminotransferase 19 U/L (7-40); Albumin 4.4 g/dL (3.2-4.8); Alkaline Phosphatase 86 U/L (46-116); Anion Gap 8 (5-15); Aspartate Aminotransferase 22 U/L (13-40); BUN/Creatinine Ratio 11.9 (10.0-20.0); Bilirubin, Total 0.4 mg/dL (0.2-1.0); Blood Urea Nitrogen 15 mg/dL (9-23); Carbon Dioxide 23 mmol/L (20-30); Chloride 111 mmol/L (98-107); Glucose 110 mg/dL (74-106); Magnesium 2.2 mg/dL (1.6-2.6); Sodium 142 mmol/L (136-145)
[2024-01-27 17:50] LABS: Total Protein 7.1 g/dL (5.7-8.2)
[2024-01-27] MEDS ORDERED: hydrALAZINE HCL 20 MG/ML VL IV PRN (19:15)
[2024-01-27] MEDS ORDERED: MORPHINE SULFATE INJ 2 MG/ml SYRG IV PRN (19:15)
[2024-01-27] MEDS: SODIUM CHLORIDE 0.9% 1,000 ML IV ONE (21:00)
[2024-01-27 21:30] VITALS: PULSE 92; RESP 18; O2SAT 96
[2024-01-27] MEDS: MORPHINE SULFATE 4 MG/ML SYR/VIAL IV ONE (21:50)
[2024-01-27] MEDS: ONDANSETRON HCL 4 MG/2 ML VIAL IV ONE (21:54)
[2024-01-27] MEDS: CARVEDILOL 3.125 MG TAB PO SCH (22:09)
[2024-01-27] MEDS: ATORVASTATIN 20 MG TAB PO SCH (22:10)
[2024-01-27] MEDS: SODIUM CHLOR 0.9% PF (SALINE LOCK) 10ML VIAL/SYR IV SCH (22:16)
[2024-01-28] VITALS (10 sets, daily range): BP systolic 146–155; BP diastolic 86–91; PULSE 86–102; RESP 16–20; TEMP 97.9–98.3; O2SAT 95–98
[2024-01-28] MEDS: FUROSEMIDE 40 MG/4 ML VIAL IV ONE (02:00)
[2024-01-28] MEDS: ASPirin 81 mg TAB PO ONE (02:00)
[2024-01-28] MEDS: levoFLOXacin 250MG 50 ML IV ONE (02:01)
[2024-01-28] MEDS: MORPHINE SULFATE INJ 2 MG/ml SYRG IV PRN (02:26)
[2024-01-28 04:29] LABS: Basophils # (auto) 0 10 ^3/uL (0-0.2); Basophils % (auto) 0.2 % (0.0-2.0); Eosinophils # (auto) 0 10 ^3/uL (0-0.8); Hematocrit 36.5 % (36.0-46.0); Hemoglobin 12.6 g/dL (12.2-16.2); Lymphocytes # (auto) 1.1 10 ^3/uL (0.4-5.4); Lymphocytes % (auto) 13.2 % (10.0-50.0); Mean Corpuscular Hgb Conc. 34.4 g/dL (32.0-36.0); Mean Corpuscular Volume 93.2 fL (80.0-100.0); Monocytes # (auto) 0.1 10 ^3/uL (0-1.3); Neutrophils # (auto) 6.8 10 ^3/uL (1.6-8.6); Neutrophils % (auto) 85.6 % (37.0-80.0); Platelet Count (auto) 307 10^3/uL (140-450); Red Blood Cells 3.92 10^6/uL (4.0-5.20); Red Cell Distribution Width 15.6 % (11.8-14.3)
[2024-01-28 04:34] LABS: Alanine Aminotransferase 14 U/L (7-40); Albumin 4.1 g/dL (3.2-4.8); Alkaline Phosphatase 75 U/L (46-116); Anion Gap 7 (5-15); Aspartate Aminotransferase 21 U/L (13-40); BUN/Creatinine Ratio 16.2 (10.0-20.0); Bilirubin, Total 0.4 mg/dL (0.2-1.0); Blood Urea Nitrogen 18 mg/dL (9-23); Calcium 9.2 mg/dL (8.7-10.4); Carbon Dioxide 24 mmol/L (20-30); Chloride 110 mmol/L (98-107); Glucose 158 mg/dL (74-106); Potassium 4.2 mmol/L (3.5-5.1); Sodium 141 mmol/L (136-145); Total Protein 6.6 g/dL (5.7-8.2)
[2024-01-28] MEDS: methylPREDNISolone SOD SUCC 40 MG/ML VL IV SCH ×2 (05:33→22:29)
[2024-01-28] MEDS: ONDANSETRON HCL 4 MG/2 ML VIAL IV PRN (06:40)
[2024-01-28] MEDS: ASPirin 81 mg TAB PO SCH (10:04)
[2024-01-28] MEDS: FUROSEMIDE 40 MG/4 ML VIAL IV SCH (10:04)
[2024-01-28] MEDS: DOCUSATE SOD 100 MG CAP PO PRN (17:37)
[2024-01-28] MEDS: ACETAMINOPHEN 325 MG TAB PO PRN (20:16)
[2024-01-28] MEDS: NITROGLYCERIN 0.4 MG SL TAB SL PRN (20:18)
[2024-01-28] MEDS: levoFLOXacin 250MG 50 ML IV SCH (22:31)
[2024-01-28] MEDS: BUDESONIDE (INHALATION) 0.5 MG/2 ML NEB NEB SCH (22:48)
[2024-01-28] MEDS: ALBUTEROL SULF 2.5 MG/0.5ML(0.5%) NEB SOLN NEB PRN (22:48)
[2024-01-29] VITALS (13 sets, daily range): BP systolic 107–142; BP diastolic 56–90; PULSE 62–99; RESP 16–72; TEMP 97.8–98.2; O2SAT 16–99
[2024-01-29] MEDS ORDERED: PERCOT PO (00:24)
[2024-01-29] MEDS: CLOPIDOGREL BISULFATE 75 MG TAB PO SCH (11:23)
[2024-01-30] VITALS (11 sets, daily range): BP systolic 121–138; BP diastolic 60–93; PULSE 62–76; RESP 16–20; TEMP 97.8–98.7; O2SAT 94–99
[2024-01-30] MEDS: IPRATROPIUM BROM 0.5 MG/2.5ML INH SOL NEB PRN (20:38)
[2024-01-30] MEDS: ZOLPIDEM TARTRATE 5 MG TAB PO PRN (21:22)
[2024-01-31] VITALS (16 sets, daily range): BP systolic 119–159; BP diastolic 52–85; PULSE 68–90; RESP 16–20; TEMP 97–98.1; O2SAT 95–100
[2024-01-31] MEDS: methylPREDNISolone SOD SUCC 40 MG/ML VL IV SCH (10:18)
[2024-01-31 15:25] LABS: COVID19 ANTIGEN SOFIA FIA NEGATIVE (NEGATIVE); Rapid Influenza A Negative (Negative); Rapid Influenza B Negative (Negative)
[2024-01-31] MEDS: guaiFENesin-DM 100/10mg/5ml SYR PO PRN (19:13)
[2024-01-31] MEDS: ARTIFICIAL TEARS 15ml EACHEYE PRN (19:17)
[2024-01-31] MEDS: PHENAZOPYRIDINE HCL 100 MG TAB PO SCH (22:30)
[2024-02-01] VITALS (13 sets, daily range): BP systolic 117–151; BP diastolic 58–82; PULSE 69–89; RESP 17–20; TEMP 97.8–98.7; O2SAT 94–99
[2024-02-02] VITALS (10 sets, daily range): BP systolic 110–139; BP diastolic 55–65; PULSE 54–86; RESP 9–19; TEMP 97.8–98.8; O2SAT 94–98
== END 2024-02-02 18:10 | DRG 291 ==
LOC: ER 14:50 → EDBD 14:50 → TELE-CENTR 19:11 → TELE 19:11 → TELE-CENTR 01-28 21:32
PROVIDERS: ADMIT Nurse Practitioner Family; ATTEND Nurse Practitioner Acute Care
DX: I13.0 Hypertensive heart and chronic kidney disease with heart failure and stage 1 through stage 4 chronic kidney disease, or unspecified chronic kidney disease (principal); I50.23 Acute on chronic systolic (congestive) heart failure; J96.21 Acute and chronic respiratory failure with hypoxia; N30.00 Acute cystitis without hematuria; N17.9 Acute kidney failure, unspecified; J44.1 Chronic obstructive pulmonary disease with (acute) exacerbation; Z66 Do not resuscitate; I25.10 Atherosclerotic heart disease of native coronary artery without angina pectoris; I25.5 Ischemic cardiomyopathy; G20.C Parkinsonism, unspecified; J43.9 Emphysema, unspecified; F41.9 Anxiety disorder, unspecified; N20.0 Calculus of kidney; I49.3 Ventricular premature depolarization; E66.9 Obesity, unspecified; F32.A Depression, unspecified; N18.31 Chronic kidney disease, stage 3a; K59.00 Constipation, unspecified; K21.9 Gastro-esophageal reflux disease without esophagitis; M10.9 Gout, unspecified; K57.30 Diverticulosis of large intestine without perforation or abscess without bleeding; Z20.822 Contact with and (suspected) exposure to COVID-19; Z95.810 Presence of automatic (implantable) cardiac defibrillator; Z98.61 Coronary angioplasty status; Z87.440 Personal history of urinary (tract) infections; Z90.710 Acquired absence of both cervix and uterus; Z87.442 Personal history of urinary calculi; Z82.49 Family history of ischemic heart disease and other diseases of the circulatory system; Z88.1 Allergy status to other antibiotic agents; Z88.5 Allergy status to narcotic agent; Z79.899 Other long term (current) drug therapy; Z79.02 Long term (current) use of antithrombotics/antiplatelets; Z87.891 Personal history of nicotine dependence; Z99.3 Dependence on wheelchair; Z83.3 Family history of diabetes mellitus; Z68.27 Body mass index [BMI] 27.0-27.9, adult; Z86.19 Personal history of other infectious and parasitic diseases; Z79.82 Long term (current) use of aspirin; Z76.5 Malingerer [conscious simulation]; Z86.16 Personal history of COVID-19; Z86.73 Personal history of transient ischemic attack (TIA), and cerebral infarction without residual deficits; Z90.49 Acquired absence of other specified parts of digestive tract
CPT/HCPCS: 36415; 71046; 80053; 81001; 83735; 83880; 84443; 84484; 85025; 85379; 85610; 85730; 87081; 87086; 87426; 87804; 93005; 94640; 97110; 97116; 97163; 97530; G0378; J2405

== ENCOUNTER 2024-02-15 10:12 | Inpatient (IN) | payer OTHER, MEDICAID ==
[~2024-02-15] VITALS: Ht 165.1 cm; Wt 75.3 kg
[~2024-02-15 10:12] MED LIST changes: -ACET-1882 PO; -AMIT-400 PO; -DOXY1CAP57 PO; -MORP15TA PO; +PERCOT PO; -PRED20TA2 PO
[2024-02-15] MEDS: levoFLOXacin 500MG 100 ML IV ONE (10:30)
[2024-02-15] MEDS: ONDANSETRON HCL 4 MG/2 ML VIAL IV ONE (10:30)
[2024-02-15] MEDS: MORPHINE SULFATE INJ 2 MG/ml SYRG IV ONE ×3 (10:30→20:51)
[2024-02-15 10:38] VITALS: PULSE 72; RESP 27; O2SAT 98
[2024-02-15 11:43] LABS: Basophils % (auto) 1.2 % (0.0-2.0); Hematocrit 37.1 % (36.0-46.0); Hemoglobin 12.9 g/dL (12.2-16.2); Lymphocytes % (auto) 29.3 % (10.0-50.0); Mean Corpuscular Volume 89.1 fL (80.0-100.0); Monocytes % (auto) 11.1 % (0.0-12.0); Neutrophils % (auto) 55.4 % (37.0-80.0); Nucleated Red Blood Cells % 0.2 %; Red Blood Cells 4.17 10^6/uL (4.0-5.20); White Blood Cell 8.2 10^3/uL (4.4-10.8)
[2024-02-15 11:44] LABS: Basophils # (auto) 0.1 10 ^3/uL (0-0.2); Eosinophils # (auto) 0.2 10 ^3/uL (0-0.8); Lymphocytes # (auto) 2.4 10 ^3/uL (0.4-5.4); Mean Corpuscular Hgb Conc. 34.8 g/dL (32.0-36.0); Monocytes # (auto) 0.9 10 ^3/uL (0-1.3); Neutrophils # (auto) 4.5 10 ^3/uL (1.6-8.6); Platelet Count (auto) 248 10^3/uL (140-450); Red Cell Distribution Width 14.8 % (11.8-14.3)
[2024-02-15 11:50] LABS: Alanine Aminotransferase 19 U/L (7-40); Albumin 4.4 g/dL (3.2-4.8); Alkaline Phosphatase 84 U/L (46-116); Anion Gap 9 (5-15); Aspartate Aminotransferase 24 U/L (13-40); BUN/Creatinine Ratio 20.4 (10.0-20.0); Blood Urea Nitrogen 20 mg/dL (9-23); Calcium 9.8 mg/dL (8.7-10.4); Carbon Dioxide 25 mmol/L (20-30); Chloride 109 mmol/L (98-107); Glucose 100 mg/dL (74-106); Potassium 3.7 mmol/L (3.5-5.1); Sodium 143 mmol/L (136-145)
[2024-02-15 11:51] LABS: Bilirubin, Total 0.6 mg/dL (0.2-1.0); Total Protein 6.6 g/dL (5.7-8.2)
[2024-02-15 14:05] LABS: Urine Bacteria None Seen /hpf (None Seen)
[2024-02-15 14:29] LABS: Urine Blood Negative /uL (Negative); Urine Protein, UAD Negative (Negative); Urine Specific Gravity 1.007 (1.001-1.035); Urine Urobilinogen Normal (Negative); Urine WBC 2 /hpf (0 - 5)
[2024-02-15 14:30] LABS: Urine Color Straw (Yellow)
[2024-02-15 14:31] LABS: Urine Clarity CLEAR (Clear)
[2024-02-15] MEDS: ASPirin 325 MG TAB PO ONE (14:50)
[2024-02-15] MEDS: NITROGLYCERIN 2% OINT 1GM PKG TD ONE (14:50)
[2024-02-15] MEDS: MORPHINE SULFATE 4 MG/ML SYR/VIAL IV ONE (14:50)
[2024-02-15] MEDS ORDERED: ACETAMINOPHEN 325 MG TAB PO PRN (16:30)
[2024-02-15 16:41] LABS: Triglycerides 112 mg/dL (< 150)
[2024-02-15 16:42] LABS: LDL Cholesterol 73 mg/dL (< 100)
[2024-02-15 16:43] LABS: Cholesterol 127 mg/dL (< 200); HDL Cholesterol 43 mg/dL (40-59)
[2024-02-15] MEDS ORDERED: clonazePAM 0.5 MG TAB PO PRN (16:45)
[2024-02-15 18:19] VITALS: BP 142/63; PULSE 63; TEMP 97.9; O2SAT 97
[2024-02-15] MEDS: TAMSULOSIN HYDROCHLORIDE 0.4 MG CAP PO SCH (18:24)
[2024-02-15] MEDS: OXYCODONE W/ ACETAMINOPHEN 5/325MG TABLET PO SCH (18:26)
[2024-02-15 20:00] VITALS: PULSE 92; RESP 18; O2SAT 97
[2024-02-15 20:54] VITALS: BP 131/76; PULSE 91; RESP 18; TEMP 97.9; O2SAT 98
[2024-02-15] MEDS: ONDANSETRON HCL 4 MG/2 ML VIAL IV PRN (20:56)
[2024-02-15 21:00] VITALS: BP 103/64; PULSE 92; RESP 18; TEMP 97.6; O2SAT 98
[2024-02-15] MEDS: CARVEDILOL 3.125 MG TAB PO SCH (22:00)
[2024-02-15] MEDS: LACTOBACILLUS PO SCH (22:00)
[2024-02-15] MEDS: ATORVASTATIN 20 MG TAB PO SCH (22:07)
[2024-02-15] MEDS: RANOLAZINE ER 500 MG TAB PO SCH (22:07)
[2024-02-15] MEDS: CHOLECALCIFEROL (VITD3) 1,000UNIT=25mCg TAB PO SCH (22:07)
[2024-02-15 22:08] VITALS: O2SAT 98
[2024-02-15] MEDS: SACUBITRIL-VALSARTAN 24mg/26mg TAB PO SCH (22:08)
[2024-02-15] MEDS: ASCORBIC ACID 500 MG TAB PO SCH (22:08)
[2024-02-15] MEDS: MORPHINE SULF 15mg ER tab PO SCH (22:08)
[2024-02-16] VITALS (16 sets, daily range): BP systolic 99–123; BP diastolic 51–99; PULSE 67–94; RESP 18–22; TEMP 97.9–98.7; O2SAT 94–99
[2024-02-16] MEDS: KETOROLAC TROMETH 30 MG/ML 1ML VIAL IV ONE (03:24)
[2024-02-16] MEDS: ALBUTEROL SULF 2.5 MG/0.5ML(0.5%) NEB SOLN NEB PRN (04:50)
[2024-02-16 07:54] LABS: Basophils # (auto) 0 10 ^3/uL (0-0.2); Basophils % (auto) 0.5 % (0.0-2.0); Eosinophils # (auto) 0.2 10 ^3/uL (0-0.8); Hematocrit 36.1 % (36.0-46.0); Hemoglobin 12.3 g/dL (12.2-16.2); Lymphocytes # (auto) 2.2 10 ^3/uL (0.4-5.4); Lymphocytes % (auto) 32.9 % (10.0-50.0); Mean Corpuscular Hemoglobin 30.7 pg (28.0-32.0); Mean Corpuscular Volume 90.3 fL (80.0-100.0); Monocytes # (auto) 0.7 10 ^3/uL (0-1.3); Monocytes % (auto) 10.7 % (0.0-12.0); Neutrophils # (auto) 3.6 10 ^3/uL (1.6-8.6); Neutrophils % (auto) 52.9 % (37.0-80.0); Nucleated Red Blood Cells % 0.1 %; Platelet Count (auto) 300 10^3/uL (140-450); Red Cell Distribution Width 14.7 % (11.8-14.3); White Blood Cell 6.8 10^3/uL (4.4-10.8)
[2024-02-16 08:07] LABS: Alanine Aminotransferase 17 U/L (7-40); Alkaline Phosphatase 79 U/L (46-116); Anion Gap 10 (5-15); Aspartate Aminotransferase 19 U/L (13-40); BUN/Creatinine Ratio 14.3 (10.0-20.0); Blood Urea Nitrogen 20 mg/dL (9-23); Calcium 9.8 mg/dL (8.7-10.4); Carbon Dioxide 26 mmol/L (20-30); Chloride 106 mmol/L (98-107); Glucose 94 mg/dL (74-106); Potassium 3.9 mmol/L (3.5-5.1); Sodium 142 mmol/L (136-145)
[2024-02-16 08:08] LABS: Bilirubin, Total 0.4 mg/dL (0.2-1.0); Total Protein 6.2 g/dL (5.7-8.2)
[2024-02-16] MEDS: ASPirin 81 mg TAB PO SCH (09:38)
[2024-02-16] MEDS: MULTIPLE VITAMIN TAB PO SCH (09:39)
[2024-02-16] MEDS: PANTOPRAZOLE 40 MG TAB PO SCH (09:41)
[2024-02-16] MEDS: FLUoxetine HCL 20 MG CAP PO SCH (09:41)
[2024-02-16] MEDS: CLOPIDOGREL BISULFATE 75 MG TAB PO SCH (09:42)
[2024-02-16] MEDS: FUROSEMIDE 40 MG TAB PO SCH (09:43)
[2024-02-16] MEDS: ENOXAPARIN SOD 40 MG/0.4 ML SYRINGE SC SCH (09:44)
[2024-02-16] MEDS: IPRATROPIUM BROM 0.5 MG/2.5ML INH SOL NEB PRN (20:03)
[2024-02-16 20:49] LABS: Creatinine, Urine 113.74 mg/dL (30.0-125.0)
[2024-02-17] VITALS (14 sets, daily range): BP systolic 90–99; BP diastolic 33–51; PULSE 73–94; RESP 14–21; TEMP 98.3–99.1; O2SAT 93–100
[2024-02-17 06:21] LABS: Basophils # (auto) 0 10 ^3/uL (0-0.2); Basophils % (auto) 0.2 % (0.0-2.0); Eosinophils # (auto) 0.2 10 ^3/uL (0-0.8); Eosinophils % (auto) 1.9 % (0.0-7.0); Hematocrit 36.4 % (36.0-46.0); Hemoglobin 12.2 g/dL (12.2-16.2); Lymphocytes % (auto) 8.7 % (10.0-50.0); Mean Corpuscular Hemoglobin 30.4 pg (28.0-32.0); Mean Corpuscular Hgb Conc. 33.6 g/dL (32.0-36.0); Mean Corpuscular Volume 90.3 fL (80.0-100.0); Monocytes # (auto) 0.7 10 ^3/uL (0-1.3); Monocytes % (auto) 6.4 % (0.0-12.0); Neutrophils # (auto) 9.2 10 ^3/uL (1.6-8.6); Neutrophils % (auto) 82.8 % (37.0-80.0); Nucleated Red Blood Cells % 0.1 %; Platelet Count (auto) 268 10^3/uL (140-450); Red Blood Cells 4.03 10^6/uL (4.0-5.20); Red Cell Distribution Width 14.8 % (11.8-14.3); White Blood Cell 11.1 10^3/uL (4.4-10.8)
[2024-02-17 06:29] LABS: Anion Gap 8 (5-15); Carbon Dioxide 27 mmol/L (20-30); Chloride 104 mmol/L (98-107); Sodium 139 mmol/L (136-145)
[2024-02-17 06:30] LABS: Calcium 9.6 mg/dL (8.7-10.4)
[2024-02-17 06:35] LABS: BUN/Creatinine Ratio 18.1 (10.0-20.0); Blood Urea Nitrogen 28 mg/dL (9-23); Glucose 101 mg/dL (74-106)
[2024-02-17] MEDS: D5W/SOD CHLO 0.9% 500 ML IV SCH (17:44)
[2024-02-17] MEDS: ERTAPENEM SOD INJ 0.5 GM in SODIUM CHL 0.9% 50 ML IV SCH (18:00)
[2024-02-17] MEDS: FLORASTOR (S. BOULARDII) 250 MG CAP PO SCH (21:32)
[2024-02-18] VITALS (14 sets, daily range): BP systolic 98–117; BP diastolic 39–72; PULSE 16–92; RESP 16–71; TEMP 97.8–98.3; O2SAT 91–98
[2024-02-18] MEDS: OXYCODONE W/ ACETAMINOPHEN 5/325MG TABLET PO PRN (08:40)
[2024-02-18] MEDS: FUROSEMIDE 40 MG/4 ML VIAL IV SCH (10:23)
[2024-02-18] MEDS ORDERED: LACTULOSE 20Gm/30ML SOLN PO PRN ×2 (14:45→15:30)
[2024-02-18 15:45] LABS: Basophils # (auto) 0 10 ^3/uL (0-0.2); Basophils % (auto) 0.4 % (0.0-2.0); Eosinophils # (auto) 0.2 10 ^3/uL (0-0.8); Hematocrit 33.6 % (36.0-46.0); Hemoglobin 11.5 g/dL (12.2-16.2); Lymphocytes # (auto) 1.9 10 ^3/uL (0.4-5.4); Lymphocytes % (auto) 26.4 % (10.0-50.0); Mean Corpuscular Hemoglobin 30.5 pg (28.0-32.0); Mean Corpuscular Hgb Conc. 34.4 g/dL (32.0-36.0); Mean Corpuscular Volume 88.8 fL (80.0-100.0); Monocytes # (auto) 1.2 10 ^3/uL (0-1.3); Monocytes % (auto) 16.5 % (0.0-12.0); Neutrophils # (auto) 3.9 10 ^3/uL (1.6-8.6); Neutrophils % (auto) 53.7 % (37.0-80.0); Platelet Count (auto) 270 10^3/uL (140-450); Red Blood Cells 3.78 10^6/uL (4.0-5.20); Red Cell Distribution Width 14.7 % (11.8-14.3); White Blood Cell 7.2 10^3/uL (4.4-10.8)
[2024-02-18 16:14] LABS: Alanine Aminotransferase 51 U/L (7-40); Alkaline Phosphatase 72 U/L (46-116); Anion Gap 6 (5-15); Aspartate Aminotransferase 32 U/L (13-40); BUN/Creatinine Ratio 18.7 (10.0-20.0); Blood Urea Nitrogen 25 mg/dL (9-23); Calcium 9.4 mg/dL (8.7-10.4); Carbon Dioxide 30 mmol/L (20-30); Chloride 104 mmol/L (98-107); Glucose 103 mg/dL (74-106); Potassium 4.5 mmol/L (3.5-5.1); Sodium 140 mmol/L (136-145)
[2024-02-18 16:15] LABS: Bilirubin, Total 0.4 mg/dL (0.2-1.0); Total Protein 6.1 g/dL (5.7-8.2)
[2024-02-18 16:23] LABS: CRP High Sensitivity 3.31 mg/dL (<1.0)
[2024-02-19] VITALS (11 sets, daily range): BP systolic 94–118; BP diastolic 40–67; PULSE 67–74; RESP 16–21; TEMP 97.4–98.5; O2SAT 95–98
[2024-02-19] MEDS: FUROSEMIDE 40 MG TAB PO SCH (10:53)
[2024-02-19 15:17] LABS: Basophils # (auto) 0 10 ^3/uL (0-0.2); Basophils % (auto) 0.5 % (0.0-2.0); Eosinophils # (auto) 0.3 10 ^3/uL (0-0.8); Eosinophils % (auto) 4.5 % (0.0-7.0); Hematocrit 32.4 % (36.0-46.0); Hemoglobin 10.9 g/dL (12.2-16.2); Lymphocytes # (auto) 1.3 10 ^3/uL (0.4-5.4); Lymphocytes % (auto) 23.2 % (10.0-50.0); Mean Corpuscular Hemoglobin 30.1 pg (28.0-32.0); Mean Corpuscular Hgb Conc. 33.8 g/dL (32.0-36.0); Mean Corpuscular Volume 88.9 fL (80.0-100.0); Monocytes # (auto) 0.8 10 ^3/uL (0-1.3); Monocytes % (auto) 14.7 % (0.0-12.0); Neutrophils # (auto) 3.3 10 ^3/uL (1.6-8.6); Neutrophils % (auto) 57.1 % (37.0-80.0); Platelet Count (auto) 247 10^3/uL (140-450); Red Blood Cells 3.64 10^6/uL (4.0-5.20); Red Cell Distribution Width 14.4 % (11.8-14.3); White Blood Cell 5.8 10^3/uL (4.4-10.8)
[2024-02-19 15:30] LABS: Alanine Aminotransferase 34 U/L (7-40); Albumin 3.7 g/dL (3.2-4.8); Alkaline Phosphatase 65 U/L (46-116); Anion Gap 5 (5-15); Aspartate Aminotransferase 17 U/L (13-40); BUN/Creatinine Ratio 19.7 (10.0-20.0); Bilirubin, Total 0.3 mg/dL (0.2-1.0); Blood Urea Nitrogen 25 mg/dL (9-23); Calcium 9.2 mg/dL (8.7-10.4); Carbon Dioxide 30 mmol/L (20-30); Chloride 104 mmol/L (98-107); Glucose 123 mg/dL (74-106); Potassium 4.2 mmol/L (3.5-5.1); Sodium 139 mmol/L (136-145); Total Protein 5.6 g/dL (5.7-8.2)
[2024-02-19 15:39] LABS: CRP High Sensitivity 1.46 mg/dL (<1.0)
[2024-02-20] VITALS (10 sets, daily range): BP systolic 90–127; BP diastolic 40–64; PULSE 70–95; RESP 17–21; TEMP 97.7–98.7; O2SAT 95–100
== END 2024-02-20 15:30 | DRG 682 ==
LOC: ER 10:12 → EDBD 10:12 → OVERFLOW 16:27 → WEST WING 18:10
PROVIDERS: ADMIT Internal Medicine; ATTEND Internal Medicine
PROC: 05H933Z Insertion of Infusion Device into Right Brachial Vein, Percutaneous Approach (ICD-10-PCS; principal; 2024-02-18)
PROC: B54MZZA Ultrasonography of Right Upper Extremity Veins, Guidance (ICD-10-PCS; 2024-02-18)
DX: N17.0 Acute kidney failure with tubular necrosis (principal); I50.23 Acute on chronic systolic (congestive) heart failure; J96.21 Acute and chronic respiratory failure with hypoxia; I13.0 Hypertensive heart and chronic kidney disease with heart failure and stage 1 through stage 4 chronic kidney disease, or unspecified chronic kidney disease; J44.1 Chronic obstructive pulmonary disease with (acute) exacerbation; N30.90 Cystitis, unspecified without hematuria; E78.5 Hyperlipidemia, unspecified; M10.9 Gout, unspecified; K59.00 Constipation, unspecified; G89.4 Chronic pain syndrome; K21.9 Gastro-esophageal reflux disease without esophagitis; N20.0 Calculus of kidney; N18.31 Chronic kidney disease, stage 3a; F32.A Depression, unspecified; F41.9 Anxiety disorder, unspecified; I25.10 Atherosclerotic heart disease of native coronary artery without angina pectoris; Z95.1 Presence of aortocoronary bypass graft; Z90.710 Acquired absence of both cervix and uterus; Z99.81 Dependence on supplemental oxygen; Z83.3 Family history of diabetes mellitus; Z82.49 Family history of ischemic heart disease and other diseases of the circulatory system
CPT/HCPCS: 36415; 70450; 71045; 74176; 80048; 80053; 80061; 81001; 82306; 82570; 83605; 83880; 84300; 84443; 84484; 85025; 86141; 87081; 87086; 87088; 87186; 94640; 96374; 96375; 97110; 97116; 97163; 97530; G0378; J1335; J1885; J1956; J2405

== ENCOUNTER 2024-03-02 15:18 | Inpatient (IN) | payer OTHER, MEDICAID ==
[~2024-03-02] VITALS: Ht 152.4 cm; Wt 70.5 kg
[2024-03-02 16:12] LABS: Basophils # (auto) 0.1 10 ^3/uL (0-0.2); Eosinophils # (auto) 0.2 10 ^3/uL (0-0.8); Eosinophils % (auto) 1.6 % (0.0-7.0); Hematocrit 41.8 % (36.0-46.0); Hemoglobin 13.8 g/dL (12.2-16.2); Lymphocytes # (auto) 2.1 10 ^3/uL (0.4-5.4); Lymphocytes % (auto) 21.3 % (10.0-50.0); Mean Corpuscular Hemoglobin 29.3 pg (28.0-32.0); Mean Corpuscular Hgb Conc. 32.9 g/dL (32.0-36.0); Mean Corpuscular Volume 89.2 fL (80.0-100.0); Monocytes # (auto) 0.8 10 ^3/uL (0-1.3); Monocytes % (auto) 7.9 % (0.0-12.0); Neutrophils # (auto) 6.7 10 ^3/uL (1.6-8.6); Neutrophils % (auto) 68.2 % (37.0-80.0); Platelet Count (auto) 355 10^3/uL (140-450); Red Blood Cells 4.69 10^6/uL (4.0-5.20); Red Cell Distribution Width 15.2 % (11.8-14.3); White Blood Cell 9.8 10^3/uL (4.4-10.8)
[2024-03-02 16:34] LABS: Urine Bacteria None Seen /hpf (None Seen)
[2024-03-02 16:36] LABS: Alanine Aminotransferase 12 U/L (7-40); Albumin 4.5 g/dL (3.2-4.8); Alkaline Phosphatase 95 U/L (46-116); Anion Gap 6 (5-15); Aspartate Aminotransferase 16 U/L (13-40); BUN/Creatinine Ratio 23.8 (10.0-20.0); Bilirubin, Total 1.1 mg/dL (0.2-1.0); Blood Urea Nitrogen 29 mg/dL (9-23); Carbon Dioxide 29 mmol/L (20-31); Chloride 108 mmol/L (98-107); Glucose 95 mg/dL (74-106); Potassium 4.4 mmol/L (3.5-5.1); Sodium 143 mmol/L (136-145); Total Protein 6.8 g/dL (5.7-8.2)
[2024-03-02 16:45] LABS: Urine Blood Negative /uL (Negative); Urine Clarity Clear (Clear); Urine Color Dark-Orange (Yellow); Urine Hyaline Cast FEW /lpf (0 - 2); Urine Protein, UAD Negative (Negative); Urine Specific Gravity 1.013 (1.001-1.035); Urine Urobilinogen 3 mg/dL (Negative); Urine WBC 3 /hpf (0 - 5); Urine pH 5.5 (5.0-9.0)
[2024-03-02] MEDS: METOCLOPRAMIDE HCL 5MG/ml INJ 2ml VIAL IV ONE (17:31)
[2024-03-02] MEDS: MORPHINE SULFATE 4 MG/ML SYR/VIAL IV ONE (17:33)
[2024-03-02] MEDS: SODIUM CHLORIDE 0.9% 1,000 ML IV ONE (17:37)
[2024-03-02 19:00] LABS: Magnesium 2.1 mg/dL (1.6-2.6)
[2024-03-02 19:06] LABS: INR 1.03 (0.9-1.15); Partial Thromboplastin Time 29.1 SEC (24.5-34.5); Prothrombin Time 10.9 sec (9.3-11.8)
[2024-03-02] MEDS: ALBUTEROL SULF 2.5 MG/0.5ML(0.5%) NEB SOLN ONE (21:55)
[2024-03-02 22:00] VITALS: PULSE 70; RESP 13; O2SAT 99
[2024-03-02 22:05] VITALS: O2SAT 97
[2024-03-02] MEDS: levoFLOXacin 250MG 50 ML IV ONE (22:48)
[2024-03-02] MEDS: CARVEDILOL 3.125 MG TAB PO SCH (22:49)
[2024-03-02] MEDS: MORPHINE SULFATE INJ 2 MG/ml SYRG IV PRN (22:49)
[2024-03-02] MEDS: RANOLAZINE ER 500 MG TAB PO SCH (22:50)
[2024-03-02] MEDS: SACUBITRIL-VALSARTAN 24mg/26mg TAB PO SCH (22:50)
[2024-03-02] MEDS: ATORVASTATIN 20 MG TAB PO SCH (22:50)
[2024-03-02 23:07] VITALS: BP 122/43; PULSE 69; RESP 20; TEMP 98.2; O2SAT 97
[2024-03-02 23:53] VITALS: BP 127/67; PULSE 73; RESP 20; TEMP 97.5; O2SAT 100
[2024-03-03] VITALS (9 sets, daily range): BP systolic 90–130; BP diastolic 37–67; PULSE 69–90; RESP 18–20; TEMP 97.5–98.3; O2SAT 96–100
[2024-03-03] MEDS: ACETAMINOPHEN 325 MG TAB PO PRN (01:02)
[2024-03-03] MEDS: TEMAZEPAM 15 MG CAP PO PRN (01:02)
[2024-03-03] MEDS: KETOROLAC TROMETH 30 MG/ML 1ML VIAL IV ONE (03:19)
[2024-03-03] MEDS: ALBUTEROL SULF 2.5 MG/0.5ML(0.5%) NEB SOLN NEB PRN (07:13)
[2024-03-03 07:32] LABS: Basophils # (auto) 0 10 ^3/uL (0-0.2); Basophils % (auto) 0.4 % (0.0-2.0); Eosinophils # (auto) 0.2 10 ^3/uL (0-0.8); Eosinophils % (auto) 2.8 % (0.0-7.0); Hematocrit 35.1 % (36.0-46.0); Hemoglobin 11.4 g/dL (12.2-16.2); Lymphocytes # (auto) 2.2 10 ^3/uL (0.4-5.4); Lymphocytes % (auto) 30.3 % (10.0-50.0); Mean Corpuscular Hemoglobin 29.1 pg (28.0-32.0); Mean Corpuscular Hgb Conc. 32.6 g/dL (32.0-36.0); Mean Corpuscular Volume 89.2 fL (80.0-100.0); Monocytes # (auto) 1.1 10 ^3/uL (0-1.3); Monocytes % (auto) 14.8 % (0.0-12.0); Neutrophils # (auto) 3.8 10 ^3/uL (1.6-8.6); Neutrophils % (auto) 51.7 % (37.0-80.0); Nucleated Red Blood Cells % 0.3 %; Platelet Count (auto) 271 10^3/uL (140-450); Red Blood Cells 3.93 10^6/uL (4.0-5.20); Red Cell Distribution Width 15.3 % (11.8-14.3); White Blood Cell 7.3 10^3/uL (4.4-10.8)
[2024-03-03 07:46] LABS: Alanine Aminotransferase 12 U/L (7-40); Albumin 3.8 g/dL (3.2-4.8); Alkaline Phosphatase 80 U/L (46-116); Anion Gap 5 (5-15); Aspartate Aminotransferase 18 U/L (13-40); BUN/Creatinine Ratio 26.4 (10.0-20.0); Blood Urea Nitrogen 34 mg/dL (9-23); Calcium 9.3 mg/dL (8.7-10.4); Carbon Dioxide 28 mmol/L (20-31); Chloride 112 mmol/L (98-107); Glucose 76 mg/dL (74-106); Potassium 4.4 mmol/L (3.5-5.1); Sodium 145 mmol/L (136-145); Total Protein 5.4 g/dL (5.7-8.2)
[2024-03-03 07:50] LABS: Bilirubin, Total 0.8 mg/dL (0.2-1.0)
[2024-03-03] MEDS ORDERED: CLOPIDOGREL BISULFATE 75 MG TAB PO SCH (10:00)
[2024-03-03] MEDS ORDERED: PANTOPRAZOLE 40 MG/10 ML VIAL INJ IV SCH (10:00)
[2024-03-03] MEDS: levoFLOXacin 250MG 50 ML IV SCH (10:24)
[2024-03-03] MEDS: FLUoxetine HCL 20 MG CAP PO SCH (10:26)
[2024-03-03] MEDS: FUROSEMIDE 40 MG TAB PO SCH (10:26)
[2024-03-03] MEDS: PANTOPRAZOLE 40 MG/10 ML VIAL INJ IV SCH (12:07)
[2024-03-03] MEDS: ONDANSETRON HCL 4 MG/2 ML VIAL IV PRN (13:14)
[2024-03-03] MEDS: ERTAPENEM SOD INJ 1 GM in SODIUM CHL 0.9% 50 ML IV ONE (13:15)
[2024-03-04 01:00] VITALS: BP 127/59; PULSE 70; RESP 17; TEMP 97.5; O2SAT 98
[2024-03-04 03:53] VITALS: O2SAT 95
[2024-03-04 05:00] VITALS: BP 113/55; PULSE 74; RESP 17; TEMP 97.4; O2SAT 97
[2024-03-04 09:00] VITALS: BP 128/59; PULSE 79; RESP 18; TEMP 97.9; O2SAT 95
[2024-03-04 10:00] VITALS: O2SAT 95
[2024-03-04] MEDS: ERTAPENEM SOD INJ 1 GM in SODIUM CHL 0.9% 50 ML IV SCH (10:00)
[2024-03-04 14:22] VITALS: O2SAT 95
== END 2024-03-04 14:19 | disposition home or self-care (01) | DRG 391 ==
LOC: EDBD 15:18 → ER 15:18 → WEST WING 21:31 → OVERFLOW 21:31 → WEST WING 23:41
PROVIDERS: ADMIT Internal Medicine; ATTEND Emergency Medicine
DX: K57.30 Diverticulosis of large intestine without perforation or abscess without bleeding (principal); J96.21 Acute and chronic respiratory failure with hypoxia; J44.1 Chronic obstructive pulmonary disease with (acute) exacerbation; I50.22 Chronic systolic (congestive) heart failure; I13.0 Hypertensive heart and chronic kidney disease with heart failure and stage 1 through stage 4 chronic kidney disease, or unspecified chronic kidney disease; I25.10 Atherosclerotic heart disease of native coronary artery without angina pectoris; Z66 Do not resuscitate; N18.31 Chronic kidney disease, stage 3a; G89.4 Chronic pain syndrome; K21.9 Gastro-esophageal reflux disease without esophagitis; F32.A Depression, unspecified; E78.5 Hyperlipidemia, unspecified; Z95.1 Presence of aortocoronary bypass graft; Z88.1 Allergy status to other antibiotic agents; Z88.5 Allergy status to narcotic agent; Z88.8 Allergy status to other drugs, medicaments and biological substances; Z79.899 Other long term (current) drug therapy; Z79.891 Long term (current) use of opiate analgesic; Z87.442 Personal history of urinary calculi; Z98.61 Coronary angioplasty status; Z95.810 Presence of automatic (implantable) cardiac defibrillator; Z99.3 Dependence on wheelchair; Z99.81 Dependence on supplemental oxygen
CPT/HCPCS: 36415; 71046; 74176; 80053; 81001; 82270; 83690; 83735; 84484; 85025; 85610; 85730; 86850; 86900; 86901; 87081; 87086; 87493; 93005; 94640; G0378; J1335; J1885; J2405; J2470

== ENCOUNTER 2024-03-19 12:29 | Inpatient (IN) | payer OTHER, MEDICAID ==
[2024-03-19] VITALS (8 sets, daily range): BP systolic 113–118; BP diastolic 64; PULSE 73–88; RESP 15–20; TEMP 98.2–98.6; O2SAT 90–98
[~2024-03-19] VITALS: Ht 162.6 cm; Wt 75.1 kg
[~2024-03-19 12:29] MED LIST changes: -DOCU-94 PO; -MORP1TAB12 PO
--- NOTE | 2024-03-19 12:42 | ED.PDOC ---
SOB-HPI HPI Comments 78 y.o female with PMH of CHF, [place], CABG x4, CAD, pacemaker, HLD, PNA, COPD, UTIs, C. diff, MRSA, and ovarian cysts presents to ED via EMS for chief complaint of SOB associated with abdominal pain and chest pain. EMS reports patient's vital signs on scene were unremarkable with a SPO2 of 94% but noted to have bilateral lung wheezing. Patient is on home oxygen due to COPD history. Patient reports SOB presented 2 days ago with a productive cough x 3 days and today noted pain to her abdomen and chest region. Patient denies any other symptoms or pain. Time Seen by MD: 12:25 Primary Care Provider: HORTENCIA Reviewed notes: Nurses Notes, Over Hauler Helper Notes, Medications, Allergies Information Source: Patient, Emergency Med Personnel Mode of Arrival: EMS Severity: Moderate Timing: Days (3-4) Duration: Since onset Context: At Rest History of: COPD Prehospital treatment: 12 Lead EKG, Breathing Tx, Union Representative Modifying Factors: Nothing Associated Signs and Symptoms: Wheeze, Cough, Chest Pain If cough with SOB: Productive Past Medical History PAST MEDICAL HISTORY: Anxiety, Asthma, CAD, CHF, COPD, Depression, GERD, Gout, High Lipids, HTN, Kidney Stones, [place], UTI'S Surgical History: Appendectomy, CABG, Hysterectomy, Pacemaker, PTCA, 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: Ovarian Cysts Family History Family History: Reviewed,noncontributory to illness, Family hx of DM, Family hx of heart gabe Social History Smoker: Non-Smoker Alcohol: Denies ETOH Use Drugs: Denies Drug Use Lives In: Home Constitutional: denies: chills, diaphoresis, fatigue, fever, malaise, sweats, weakness, others EENTM: denies: blurred vision, double vision, ear bleeding, ear discharge, ear drainage, ear pain, ear ringing, eye pain, eye redness, hearing loss, mouth pain, mouth swelling, nasal discharge, nose bleeding, nose congestion, nose pain, photophobia, tearing, throat pain, throat swelling, voice changes, others Respiratory: reports: cough, SOB at rest, shortness of breath; denies: hemoptysis, orthopnea, SOB with excertion, stridor, wheezing, others Cardiovascular: reports: chest pain; denies: dizzy spells, diaphoresis, Dyspnea on exertion, edema, irregular heart beat, left arm pain, lightheadedness, palpitations, PND, syncope, others Gastrointestinal: reports: abdominal pain; denies: abdomen distended, blood streaked bowels, constipated, diarrhea, dysphagia, difficulty swallowing, hematemesis, melena, nausea, poor appetite, poor fluid intake, rectal bleeding, rectal pain, vomiting, others Genitourinary: denies: abnormal vagina bleeding, burning, dyspareunia, dysuria, flank pain, frequency, hematuria, incontinence, pain, , vagina discharge, urgency, others Neurological: denies: dizziness, fainting, headache, left sided numbness, left sided weakness, numbness, paresthesia, pre-existing deficit, right sided numbness, right sided weakness, seizure, speech problems, tingling, tremors, weakness, others Musculoskeletal: denies: back pain, gout, joint pain, joint swelling, muscle pain, muscle stiffness, neck pain, others Integumetry: denies: bruises, change in color, change in hair/nails, dryness, laceration, lesions, lumps, rash, wounds, others Allergic/Immunocompromised: denies: Difficulty Healing, Frequent Infections, Hives, Itching, others Hematologic/Lymphatic: denies: anemia, blood clots, easy bleeding, easy bruis ing, swollen glands, others Endocrine: denies: excessive hunger, excessive sweating, excessive thirst, exc essive urination, flushing, intolerance to cold, intolerance to heat, unexplained weight gain, unexplained weight loss, others Psychiatric: denies: anxiety, bipolar disorder, depression, hopeless, panic disorder, schizophrenia, sleepless, suicidal, others All Other Systems: Reviewed and Negative Physical Exam General Appearance: Moderate Distress HEENT: Normal ENT Inspection, Pharynx Normal, TMs Normal Neck: Full Range of Motion, Non-Tender, Normal, Normal Inspection Respiratory: Respiratory Distress, Other (Coarse breath sounds) Cardiovascular: No Edema, No JVD, No Murmur, No Gallop, Normal Peripheral Pulses, Regular Rate/Rhythm Breast Exam: Deferred Gastrointestinal: No Organomegaly, Non Tender, No Pulsatile Mass, Normal Bowel Sounds, Soft Genitalia: Deferred Pelvic: Deferred Rectal: Deferred Extremities: No calf tenderness, Normal capillary refill, Normal inspection, Normal range of motion, Non-tender, No pedal edema Musculoskeletal : Apperance: Normal Neurologic: Alert, 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 Was a procedure done?: No Differential Dx Differential Diagnosis: Anxiety, Asthma, Bronchitis, COPD, Pneumonia, Pulmonary Embolism, Respiratory Distress, URI X-Ray, Labs, Meds, VS Vital Signs Date Time Temp Pulse Resp B/P (MAP) Pulse Ox O2 Delivery O2 Flow Rate FiO2 03/19/24 15:00 119/56 03/19/24 14:38 70 16 118/67 03/19/24 14:13 70 16 114/44 03/19/24 13:56 73 15 97 Room Air* 0 21 03/19/24 13:53 98.1 72 18 129/74 (92) 98 98.1 03/19/24 13:04 18 93 Room Air* 0 21 03/19/24 13:04 93 Room Air* 0 21 03/19/24 12:41 84 03/19/24 12:38 98.5 91 20 128/84 (99) 99 Lab Test 03/19/24 14:05 03/19/24 13:26 03/19/24 12:56 Range/Units Troponin I High Sensitivity 29 30 </=34 ng/L Urine Color Colorless Yellow Urine Clarity Clear Clear Urine pH 6.5 5.0-9.0 Urine Specific [place] 1.007 1.001-1.035 Urine Protein Negative Negative Urine Ketones Negative Negative Urine Blood Negative Negative /uL Urine Nitrite Negative Negative Urine Bilirubin Negative Negative Urine Urobilinogen Normal Negative mg/dL Urine Leukocyte Esterase 1+ Negative /uL Urine RBC 3 0 - 4 /hpf Urine WBC 3 0 - 5 /hpf Urine Squamous Epithelial Cells None seen <5 /hpf Urine Bacteria None seen None Seen /hpf Urine Glucose Normal Normal mg/dL White Blood Count 7.0 4.4-10.8 10^3/uL Red Blood Count 4.46 4.0-5.20 10^6/uL Hemoglobin 13.3 12.2-16.2 g/dL Hematocrit 40.8 36.0-46.0 % Mean Corpuscular Volume 91.6 80.0-100.0 fL Mean Corpuscular Hemoglobin 29.9 28.0-32.0 pg Mean Corpuscular Hemoglobin Concent 32.6 32.0-36.0 g/dL Red Cell Distribution Width 16.8 H 11.8-14.3 % Platelet Count 286 140-450 10^3/uL Mean Platelet Volume 8.2 6.9-10.8 fL Neutrophils (%) (Auto) 55.3 37.0-80.0 % Lymphocytes (%) (Auto) 29.7 10.0-50.0 % Monocytes (%) (Auto) 8.5 0.0-12.0 % Eosinophils (%) (Auto) 5.8 0.0-7.0 % Basophils (%) (Auto) 0.7 0.0-2.0 % Neutrophils # (Auto) 3.9 1.6-8.6 10 ^3/uL Lymphocytes # (Auto) 2.1 0.4-5.4 10 ^3/uL Monocytes # (Auto) 0.6 0-1.3 10 ^3/uL Eosinophils # (Auto) 0.4 0-0.8 10 ^3/uL Basophils # (Auto) 0 0-0.2 10 ^3/uL Nucleated Red Blood Cells 0.1 % Sodium Level 143 136-145 mmol/L Potassium Level 4.1 3.5-5.1 mmol/L Chloride Level 110 H 98-107 mmol/L Carbon Dioxide Level 26 20-31 mmol/L Anion Gap 7 5-15 Blood Urea Nitrogen 19 9-23 mg/dL Creatinine 1.13 H 0.550-1.02 mg/dL Glomerular Filtration Rate Calc 49 >90 mL/min BUN/Creatinine Ratio 16.8 10.0-20.0 Serum Glucose 109 H 74-106 mg/dL Calcium Level 10.0 8.7-10.4 mg/dL B-Type Natriuretic Peptide 549.58 0-100 pg/mL Current Medications Medications (Trade) Dose Ordered Sig/Asha Route Start Time Stop Time Status Last Admin Methylprednisolone Sodium Succinate (Solu Medrol) 125 mg ONCE ONCE IV 03/19/24 12:45 03/19/24 12:46 DC 03/19/24 12:45 Albuterol (Ventolin Medneb) 5 mg ONCE ONCE NEB 03/19/24 12:45 03/19/24 12:46 DC 03/19/24 13:06 Ipratropium [place] (Atrovent Medneb) 0.5 mg ONCE ONCE NEB 03/19/24 12:45 03/19/24 12:46 DC 03/19/24 13:04 Morphine Sulfate 4 mg ONCE ONCE IV 03/19/24 14:15 03/19/24 14:16 DC 03/19/24 14:13 Ondansetron HCl (Zofran) 4 mg ONCE ONCE IV 03/19/24 14:15 03/19/24 14:16 DC 03/19/24 14:13 Furosemide (Lasix Injection) 40 mg ONCE ONCE IV 03/19/24 15:00 03/19/24 15:01 DC 03/19/24 15:00 Patient alert. Complaining of shortness a breath. Placed on oxygen. Was given steroid. Was given breathing treatment. Was given pain medication. BNP elevated. Was given Lasix. Reviewed her previous visit. Explained to the patient. X-Ray, Labs, Meds, VS Comment EXAM: XY CHEST PORTABLE TECHNIQUE: Single frontal chest radiograph CLINICAL HISTORY: sob COMPARISON: XY CHEST XRAY 1 VIEW on DOS: 02/16/24, XY CHEST PORTABLE on DOS: 12/02/23, XY CHEST PORTABLE on DOS: 11/30/23 Findings/Impression: Frontal chest radiograph demonstrates no acute osseous or superficial soft tissue abnormalities. Left chest wall dual chamber pace maker. The trachea is midline. The cardiac silhouette and mediastinum are within normal limits. Prominent epicardial fat pad. No pneumothorax, pleural effusions, or consolidations. Time of 1ST Reevaluation: 12:36 Reevaluation 1ST: Unchanged Patient Education/Counseling: Diagnosis, Treatment, Prognosis Family Education/Counseling: No Family Present Departure 1 Departure Time of Disposition: 14:48 Impression: Primary Impression: Acute on chronic systolic (congestive) heart failure Disposition: ADMITTED INPATIENT Admit to: Med Surg Condition: Guarded Critical Care Note Critical Care Time?: Yes (45 min-critical care time only) Stability Stability form required: No I personally scribed for AURORA RAMIREZ MD ([email or web address]) on 03/19/24 at 12:42. Electronically submitted by Elyse Perez ([facility]). I personally scribed for AURORA RAMIREZ MD ([email or web address]) on 03/19/24 at 16:28. Electronically submitted by Elyse Perez ([facility]). AURORA RAMIREZ MD Mar 19, 2024 12:42
[2024-03-19] MEDS: methylPREDNISolone SOD SUCC 125 MG/2 ML VL IV ONE (12:45)
[2024-03-19] MEDS: IPRATROPIUM BROM 0.5 MG/2.5ML INH SOL NEB ONE (13:04)
[2024-03-19] MEDS: ALBUTEROL SULF 2.5 MG/0.5ML(0.5%) NEB SOLN NEB ONE (13:06)
--- NOTE | 2024-03-19 13:11 | DVH ---
EXAM: XY CHEST PORTABLE TECHNIQUE: Single frontal chest radiograph CLINICAL HISTORY: sob COMPARISON: XY CHEST XRAY 1 VIEW on DOS: 02/16/24, XY CHEST PORTABLE on DOS: 12/02/23, XY CHEST PORTABLE on DOS: 11/30/23 Findings/Impression: Frontal chest radiograph demonstrates no acute osseous or superficial soft tissue abnormalities. Left chest wall dual chamber pace maker. The trachea is midline. The cardiac silhouette and mediastinum are within normal limits. Prominent ep icardial fat pad. No pneumothorax, pleural effusions, or consolidations.
[2024-03-19 13:26] LABS: Basophils # (auto) 0 10 ^3/uL (0-0.2); Basophils % (auto) 0.7 % (0.0-2.0); Eosinophils # (auto) 0.4 10 ^3/uL (0-0.8); Eosinophils % (auto) 5.8 % (0.0-7.0); Hematocrit 40.8 % (36.0-46.0); Hemoglobin 13.3 g/dL (12.2-16.2); Lymphocytes # (auto) 2.1 10 ^3/uL (0.4-5.4); Lymphocytes % (auto) 29.7 % (10.0-50.0); Mean Corpuscular Hemoglobin 29.9 pg (28.0-32.0); Mean Corpuscular Hgb Conc. 32.6 g/dL (32.0-36.0); Mean Corpuscular Volume 91.6 fL (80.0-100.0); Monocytes # (auto) 0.6 10 ^3/uL (0-1.3); Monocytes % (auto) 8.5 % (0.0-12.0); Neutrophils # (auto) 3.9 10 ^3/uL (1.6-8.6); Neutrophils % (auto) 55.3 % (37.0-80.0); Nucleated Red Blood Cells % 0.1 %; Platelet Count (auto) 286 10^3/uL (140-450); Red Blood Cells 4.46 10^6/uL (4.0-5.20); Red Cell Distribution Width 16.8 % (11.8-14.3)
[2024-03-19 13:27] LABS: Urine Bacteria None Seen /hpf (None Seen)
[2024-03-19 13:36] LABS: Urine Blood Negative /uL (Negative); Urine Clarity Clear (Clear); Urine Color Colorless (Yellow); Urine Protein, UAD Negative (Negative); Urine Specific Gravity 1.007 (1.001-1.035); Urine Urobilinogen Normal (Negative); Urine WBC 3 /hpf (0 - 5); Urine pH 6.5 (5.0-9.0)
[2024-03-19 13:38] LABS: Chloride 110 mmol/L (98-107); Potassium 4.1 mmol/L (3.5-5.1); Sodium 143 mmol/L (136-145)
[2024-03-19 13:39] LABS: Anion Gap 7 (5-15); Carbon Dioxide 26 mmol/L (20-31)
[2024-03-19 13:45] LABS: BUN/Creatinine Ratio 16.8 (10.0-20.0); Blood Urea Nitrogen 19 mg/dL (9-23); Glucose 109 mg/dL (74-106)
[2024-03-19] MEDS: ONDANSETRON HCL 4 MG/2 ML VIAL IV ONE (14:13)
[2024-03-19] MEDS: MORPHINE SULFATE 4 MG/ML SYR/VIAL IV ONE (14:13)
[2024-03-19] MEDS: FUROSEMIDE 40 MG/4 ML VIAL IV ONE (15:00)
[2024-03-19] MEDS ORDERED: HYDROcodone-ACET 5/325MG TAB PO PRN (15:45)
[2024-03-19] MEDS ORDERED: TEMAZEPAM 15 MG CAP PO PRN (15:45)
--- NOTE | 2024-03-19 16:51 | DVHHP2 ---
History of Present Illness Reason for Visit: Shortness of breaths History of Present Illness 78 year old female presented to the ED via EMS for chief complaint of shortness of breath, abdominal pain and chest pain. EMS reported patient's vital signs on scene were unremarkable, SpO2 is 94% and noted to have bilateral lung wheezing. Patient is on chronic home oxygen due to COPD. Patient states shortness of breath started 2 days ago with a productive cough x3 days and today patient noted pain to her abdomen and chest. Patient denies chest pain, headache, dizziness, diaphoresis, abdominal pain, no nausea, vomiting, fever, or chills endorsed by the patient. Patient was admitted for further evaluation medical management. Past Medical History Anxiety, Asthma, CAD, CHF, COPD, Depression, GERD, Gout, High Lipids, HTN, Kidney Stones, [place], UTI'S Past Surgical History Appendectomy, CABG, Hysterectomy, Pacemaker, PTCA, 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 Family History Reviewed noncontributory to the management of this case Smoke: No ALCOHOL: none Drugs: None Lives: with Family Review of Systems Constitutional: No: Fever, Chills, Sweats, Weakness, Malaise, Other Eyes: No: Pain, Vision change, Conjunctivae inflammation, Eyelid inflammation, Other, Redness ENT: No: Ear pain, Ear discharge, Nose pain, Nose discharge, Nose congestion, Mouth pain, Mouth swelling, Throat pain, Throat swelling, Other Respiratory: Cough, Wheezing; No: Dry, Shortness of breath, SOB with excertion, Hemoptysis, Pleuritic Pain, Sputum, Wheezing, Other Cardiovascular: No: Chest Pain, Palpitations, Orthopnea, Paroxysmal Noc. Dyspnea, Edema, Lt Headedness, Other Gastrointestinal: No: Nausea, Vomiting, Abdominal Pain, Diarrhea, Constipation, Melena, Hematochezia, Other Genitourinary: No Dysuria, No Frequency, No Incontinence, No Hematuria, No Retention, No Other Musculoskeletal: No: other, neck pain, shoulder pain, arm pain, back pain, hand pain, leg pain, foot pain Skin: No: Rash, Lesions, Jaundice, Bruising, Other Neurological: No: Weakness, Numbness, Incoordination, Change in speech, Confusion, Seizures, Other Allergies: Coded Allergies: Ceftriaxone (Verified Allergy, Intermediate, generalized rash, 11/08/22) MATERIALS BUYERCARLENE MEJIA Codeine (Verified Allergy, Unknown, 09/01/20) Hydrocodone (Verified Allergy, Unknown, rash, 05/18/23) tylenol is okay per patient Medications Current Medications Medications Dose Ordered Sig/Asha Route Start Time Stop Time Status Last Admin Dose Admin Temazepam 15 mg QHSP PRN PO 03/19/24 15:45 Acetaminophen/ Hydrocodone Bitart 1 tab Q4HP PRN PO 03/19/24 15:45 Ondansetron HCl 4 mg Q4HP PRN IV 03/19/24 15:45 Atorvastatin Calcium 20 mg HS PO 03/19/24 22:00 UNV Carvedilol 3.125 mg BID PO 03/19/24 22:00 UNV Clopidogrel Bisulfate 75 mg DAILY PO 03/20/24 10:00 UNV Furosemide 40 mg DAILY PO 03/20/24 10:00 UNV Pantoprazole Sodium 40 mg DAILY PO 03/20/24 10:00 UNV Ranolazine 500 mg BID PO 03/19/24 22:00 UNV Sacubitril/ Valsartan 1 tab BID PO 03/19/24 22:00 UNV Tamsulosin HCl 0.4 mg QPM PO 03/19/24 18:00 UNV Fluoxetine HCl 20 mg DAILY PO 03/20/24 10:00 UNV Albuterol 2.5 mg Q4HR NEB 03/19/24 18:00 UNV Ipratropium [place] 0.5 mg Q4HR NEB 03/19/24 18:00 UNV Exam Vital Signs Vital Signs Date Time Temp Pulse Resp B/P (MAP) Pulse Ox O2 Delivery O2 Flow Rate FiO2 03/19/24 15:00 119/56 03/19/24 14:38 70 16 03/19/24 13:56 97 Room Air* 0 21 03/19/24 13:53 98.1 98.1 General Appearance: Alert, Oriented X3, Cooperative, No acute distress HEENT: Atraumatic, PERRLA, EOMI, Mucous membr. moist/pink Respiratory: Clear to auscultation, Normal air movement Cardiovascular: Regular rate, Normal S1, Normal S2, No murmurs Abdominal: Normal bowel sounds, Soft, No tenderness, No hepatospenomegaly, No masses Extremities: No clubbing, No cyanosis, No edema, Normal pulses, No tenderness/swelling Skin: No rashes, No breakdown, No significant lesion Neuro: Normal gait, Normal speech, Strength at 5/5 X4 ext, Normal tone, Sensation intact, Cranial nerves 3-12 NL, Reflexes 2+ Psych/Mental Status: Mental status NL, Mood NL Labs/Xrays Labs, imaging and ED notes reviewed Labs Test 03/19/24 15:54 03/19/24 13:26 03/19/24 12:56 Range/Units Urine Color Colorless Yellow Urine Clarity Clear Clear Urine pH 6.5 5.0-9.0 Urine Specific [place] 1.007 1.001-1.035 Urine Protein Negative Negative Urine Ketones Negative Negative Urine Blood Negative Negative /uL Urine Nitrite Negative Negative Urine Bilirubin Negative Negative Urine Urobilinogen Normal Negative mg/dL Urine Leukocyte Esterase 1+ Negative /uL Urine RBC 3 0 - 4 /hpf Urine WBC 3 0 - 5 /hpf Urine Squamous Epithelial Cells None seen <5 /hpf Urine Bacteria None seen None Seen /hpf Urine Glucose Normal Normal mg/dL White Blood Count 7.0 4.4-10.8 10^3/uL Red Blood Count 4.46 4.0-5.20 10^6/uL Hemoglobin 13.3 12.2-16.2 g/dL Hematocrit 40.8 36.0-46.0 % Mean Corpuscular Volume 91.6 80.0-100.0 fL Mean Corpuscular Hemoglobin 29.9 28.0-32.0 pg Mean Corpuscular Hemoglobin Concent 32.6 32.0-36.0 g/dL Red Cell Distribution Width 16.8 H 11.8-14.3 % Platelet Count 286 140-450 10^3/uL Mean Platelet Volume 8.2 6.9-10.8 fL Neutrophils (%) (Auto) 55.3 37.0-80.0 % Lymphocytes (%) (Auto) 29.7 10.0-50.0 % Monocytes (%) (Auto) 8.5 0.0-12.0 % Eosinophils (%) (Auto) 5.8 0.0-7.0 % Basophils (%) (Auto) 0.7 0.0-2.0 % Neutrophils # (Auto) 3.9 1.6-8.6 10 ^3/uL Lymphocytes # (Auto) 2.1 0.4-5.4 10 ^3/uL Monocytes # (Auto) 0.6 0-1.3 10 ^3/uL Eosinophils # (Auto) 0.4 0-0.8 10 ^3/uL Basophils # (Auto) 0 0-0.2 10 ^3/uL Nucleated Red Blood Cells 0.1 % Sodium Level 143 136-145 mmol/L Potassium Level 4.1 3.5-5.1 mmol/L Chloride Level 110 H 98-107 mmol/L Carbon Dioxide Level 26 20-31 mmol/L Anion Gap 7 5-15 Blood Urea Nitrogen 19 9-23 mg/dL Creatinine 1.13 H 0.550-1.02 mg/dL Glomerular Filtration Rate Calc 49 >90 mL/min BUN/Creatinine Ratio 16.8 10.0-20.0 Serum Glucose 109 H 74-106 mg/dL Calcium Level 10.0 8.7-10.4 mg/dL B-Type Natriuretic Peptide 549.58 0-100 pg/mL Assessment/Plan Assessment/Plan Acute on chronic hypoxic respiratory failure Admit to medical/surgical 2 L nasal cannula p.r.n. Supplemental oxygen COPD exacerbation Albuterol/ipratropium q.4 hours Encourage incentive spirometry Acute on chronic systolic heart failure Continue home medications Chronic hyperlipidemia Continue home meds Insomnia Temazepam p.r.n. 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 15:37 Up Ad Chio AME 03/19/24 In Process 15:37 Temazepam (Restoril) PHA 03/19/24 In Process 15:45 Notify Md Of Changes AME 03/19/24 In Process From Base 15:37 Advance Directive AME 03/19/24 In Process 15:37 Basic Metabolic Panel LAB 03/20/24 Verified 04:00 Complete Blood Count LAB 03/20/24 Verified 04:00 Patient Condition ORDERS 03/19/24 Transmitted 15:37 Allergies AME 03/19/24 In Process 15:37 Hydrocodone-Acet PHA 03/19/24 In Process 5/325mg Tab ([place] 15:45 Ondansetron Hcl PHA 03/19/24 In Process (Zofran) 15:45 Cardiac DIET 03/19/24 Transmitted Diet-2gna,Lofat,Lochol Dinner Code Status CODE 03/19/24 Transmitted 16:02 Atorvastatin (Lipitor) PHA 03/19/24 Logged 22:00 Carvedilol Tablet PHA 03/19/24 Logged (Coreg Tablet) 22:00 Clopidogrel Bisulfate PHA 03/20/24 Logged (Plavix) 10:00 Furosemide Tablet PHA 03/20/24 Logged (Lasix Tablet) 10:00 Pantoprazole Tablet PHA 03/20/24 Logged (Protonix Tablet) 10:00 Ranolazine (Ranexa Er) PHA 03/19/24 Logged 22:00 Sacubitril-Valsartan PHA 03/19/24 Logged (Entresto 24-26 Mg 22:00 Tamsulosin PHA 03/19/24 Logged Hydrochloride (Flomax) 18:00 Fluoxetine Capsule PHA 03/20/24 Logged (Prozac Capsule) 10:00 Albuterol Medneb PHA 03/19/24 Logged (Ventolin Medneb) 18:00 Ipratropium Medneb PHA 03/19/24 Logged (Atrovent Medneb) 18:00 Date of Service: Mar 19, 2024 Billing Provider: NANCY COSTELLO Common Visit Codes: 36945-[id number] INP/OBS CARE (HIGH) Secondary Visit Codes: 84223-[id number] CARE PLAN 30 MINUTES NANCY COSTELLO Mar 19, 2024 16:51
[2024-03-19] MEDS: MORPHINE SULFATE INJ 2 MG/ml SYRG IV PRN (17:29)
[2024-03-19] MEDS: TAMSULOSIN HYDROCHLORIDE 0.4 MG CAP PO SCH (17:29)
[2024-03-19] MEDS: ONDANSETRON HCL 4 MG/2 ML VIAL IV PRN (17:30)
[2024-03-19] MEDS: ALBUTEROL SULF 2.5 MG/0.5ML(0.5%) NEB SOLN NEB SCH (18:53)
[2024-03-19] MEDS: IPRATROPIUM BROM 0.5 MG/2.5ML INH SOL NEB SCH (18:53)
--- NOTE | 2024-03-19 19:00 | ECG ---
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
[2024-03-19] MEDS: KETOROLAC TROMETH 30 MG/ML 1ML VIAL IV ONE (20:15)
[2024-03-19] MEDS: CARVEDILOL 3.125 MG TAB PO SCH (21:42)
[2024-03-19] MEDS: SACUBITRIL-VALSARTAN 24mg/26mg TAB PO SCH (21:42)
[2024-03-19] MEDS: RANOLAZINE ER 500 MG TAB PO SCH (21:42)
[2024-03-19] MEDS: ATORVASTATIN 20 MG TAB PO SCH (21:43)
[2024-03-20] VITALS (18 sets, daily range): BP systolic 98–121; BP diastolic 45–64; PULSE 70–86; RESP 16–20; TEMP 98.1–98.6; O2SAT 92–99
[2024-03-20 09:36] LABS: Chloride 103 mmol/L (98-107); Potassium 4.8 mmol/L (3.5-5.1); Sodium 139 mmol/L (136-145)
[2024-03-20 09:37] LABS: Anion Gap 8 (5-15); Calcium 9.9 mg/dL (8.7-10.4); Carbon Dioxide 28 mmol/L (20-31)
[2024-03-20] MEDS: PANTOPRAZOLE 40 MG TAB PO SCH (09:39)
[2024-03-20] MEDS: FLUoxetine HCL 20 MG CAP PO SCH (09:39)
[2024-03-20] MEDS: CLOPIDOGREL BISULFATE 75 MG TAB PO SCH (09:40)
[2024-03-20 09:42] LABS: BUN/Creatinine Ratio 23.3 (10.0-20.0); Glucose 140 mg/dL (74-106)
[2024-03-20] MEDS: FUROSEMIDE 40 MG TAB PO SCH (09:44)
[2024-03-20 09:50] LABS: Basophils # (auto) 0 10 ^3/uL (0-0.2); Basophils % (auto) 0.1 % (0.0-2.0); Eosinophils # (auto) 0 10 ^3/uL (0-0.8); Hematocrit 36.5 % (36.0-46.0); Hemoglobin 11.9 g/dL (12.2-16.2); Lymphocytes # (auto) 1.5 10 ^3/uL (0.4-5.4); Lymphocytes % (auto) 12.4 % (10.0-50.0); Mean Corpuscular Hgb Conc. 32.5 g/dL (32.0-36.0); Monocytes # (auto) 0.8 10 ^3/uL (0-1.3); Monocytes % (auto) 6.4 % (0.0-12.0); Neutrophils # (auto) 9.9 10 ^3/uL (1.6-8.6); Neutrophils % (auto) 81.1 % (37.0-80.0); Platelet Count (auto) 274 10^3/uL (140-450); Red Cell Distribution Width 17.1 % (11.8-14.3); White Blood Cell 12.2 10^3/uL (4.4-10.8)
[2024-03-20 10:07] LABS: Blood Urea Nitrogen 41 mg/dL (9-23)
[2024-03-20 11:11] LABS: Alanine Aminotransferase 15 U/L (7-40); Alkaline Phosphatase 85 U/L (46-116)
[2024-03-20 11:12] LABS: Albumin 4.4 g/dL (3.2-4.8); Aspartate Aminotransferase 15 U/L (13-40); Bilirubin, Direct < 0.1 mg/dL (<0.3); Bilirubin, Total 0.3 mg/dL (0.2-1.0); Total Protein 6.7 g/dL (5.7-8.2)
[2024-03-20 11:37] LABS: INR 1.03 (0.9-1.15); Partial Thromboplastin Time 28.2 SEC (24.5-34.5); Prothrombin Time 10.9 sec (9.3-11.8)
--- NOTE | 2024-03-20 12:09 | DVH ---
Exam: CT CT AB PEL WO CON-NO ORAL OR IV History: diffuse abd pain Comparison Study: CT CT AB PEL WO CON-NO ORAL OR IV on DOS: 03/02/24, CT CT AB PEL WO CON-NO ORAL OR IV on DOS: 02/15/24, CT CT AB PEL WO CON-NO ORAL OR IV on DOS: 10/30/23, CT CT AB PEL WO CON-NO ORAL OR IV on DOS: 09/24/23, CT CT AB PEL WO CON-NO ORAL OR IV on DOS: 09/17/23 Technique: Multidetector spiral CT of the abdomen and pelvis was performed from lung bases to pubic symphysis. Imaging was performed without IV contrast. Axial, coronal and sagittal multiplanar reform ats were obtained from the axial data set by the technologist. Radiation dose : Abdomen/Pelvis: CTDIvol 14.09 mGy, DLP 721.16 mGy*cm. Findings: Evaluation of solid organs is limited due to lack of intravenous contrast use. Lung Bases: There is atelectasis and scarring in the lung bases. Liver: The liver is normal in size. No focal lesions. Gallbladder and biliary Tree: Unremarkable Spleen: Unremarkable Pancreas: The pancreas is grossly normal in appearance. Adrenal Glands: Unremarkable Kidneys: Kidneys are grossly normal without calculi or hydronephrosis. Bladder: Bladder is decompressed with a Joshi catheter and cannot be adequately assessed. Bowel: The stomach is grossly normal in appearance. Small bowel and colon are normal in caliber and d istribution. The appendix is not visualized; however, no secondary findings of acute appendicitis id entified. Diverticulosis is noted. Ascites: Absent Lymphadenopathy: No mesenteric, retroperitoneal or periportal lymphadenopathy. Abdominal wall and Mesentery: Unremarkable. Vasculature: The visualized abdominal aorta is normal in size and caliber. There is extensive athero sclerotic calcification of the aorta and its branches. Evaluation of abdominal and pelvic vessels is limited due to lack of intravenous contrast. Pelvic Organs: The uterus is surgically absent. Musculoskeletal: No aggressive focal bony lesions, acute fractures or dislocation. IMPRESSION: 1. No acute abdominal or pelvic findings. Diverticulosis Radiation optimization: All CT scans at this facility use at least one of these dose optimization lucy hniques: Automated exposure control mA and/or kV adjustment per patient size (includes targeted exams where dose is matched to clinical indication) or iterative reconstruction. HS:Y
[2024-03-20] MEDS ORDERED: LACTATED RINGER'S 1,000 ML IV ONE ×3 (12:45→16:45)
[2024-03-20] MEDS: predniSONE 20 MG TAB PO ONE (13:39)
[2024-03-20] MEDS: AZITHROMYCIN 500MG/ 250ML 250 ML IV ONE (14:04)
[2024-03-20] MEDS: LACTATED RINGER'S 1,000 ML IV ONE (14:05)
--- NOTE | 2024-03-20 15:06 | DVHPNRES ---
Progress Note Date Seen: Mar 20, 2024 Resident Creating Document: RAVIN HOWELL RESIDENT Medical Necessity Reason Pt with a Central, PICC or Fol: Yes The following are medically ne: Joshi Catheter Subjective Review of Systems This is a 70 this is a 78-year-old female patient with PMHx of COPD on 4 L home oxygen, Parkinson's disease-confined to wheelchair, not on any medication for Parkinson, history of 7 WI status post CABG 2010, CHF (EF 10%), multiple UTIs, GERD, gout, hyperlipidemia, hypertension, kidney stones, diverticulosis, mild thickening of the wall of the rectum, CKD 3A who presented to the ER from [facility] with a chief complaint of shortness of breaths and worsening cough along with dysuria. Patient reports shortness of breaths on 4 L home oxygen, but mentioned that nobody titrated up or increased nebulized treatments. She does report chronic cough which is worsening for the past week, is dry and associated with pleuritic chest pain. She also reports diffuse abdominal pain, nausea dysuria and cloudy urine along with frequency but denies vomiting/fevers/recent travel. 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 He is A&O x4. Past medical history COPD on 4 L home oxygen, Parkinson's disease-confined to wheelchair, not on any medication for Parkinson, history of 7 WI status post CABG 2010, CHF (EF 10%), multiple UTIs, GERD, gout, hyperlipidemia, hypertension, kidney stones, diverticulosis, mild thickening of the wall of the rectum, CKD 3A Past surgical history Right ovarian mass status post resection, complete hysterectomy, appendectomy, CAD status post CABG, tonsillectomy Social history Lives at [facility] since August 17, previous living facility was [facility] for the past 4 years Former smoker quit 2010 Denies drinking or illicit drug use PCP Dr. Jackson, cut off man Dr. Mercado Patient seen and examined at bedside. Reports diffuse generalized body ache and abdominal pain, dysuria. Objective vital signs Vital Sign Date Time Temp Pulse Resp B/P (MAP) Pulse Ox O2 Delivery O2 Flow Rate FiO2 03/20/24 14:39 76 18 98 03/20/24 13:07 98.6 108/48 (68) 98.6 03/20/24 06:15 Nasal Cannula* 4 36 Total Intake and Output 03/19/24 03/19/24 03/20/24 15:00 23:00 07:00 Intake Total 340 ml Output Total 900 ml Balance -560 ml medications Current Medications Medications Dose Ordered Sig/Asha Route Start Time Stop Time Status Last Admin Dose Admin Temazepam 15 mg QHSP PRN PO 03/19/24 15:45 Acetaminophen/ Hydrocodone Bitart 1 tab Q4HP PRN PO 03/19/24 15:45 Ondansetron HCl 4 mg Q4HP PRN IV 03/19/24 15:45 03/20/24 11:33 4 MG Atorvastatin Calcium 20 mg HS PO 03/19/24 22:00 03/19/24 21:43 20 MG Carvedilol 3.125 mg BID PO 03/19/24 22:00 03/19/24 21:42 3.125 MG Clopidogrel Bisulfate 75 mg DAILY PO 03/20/24 10:00 03/20/24 09:40 75 MG Furosemide 40 mg DAILY PO 03/20/24 10:00 03/20/24 09:44 40 MG Pantoprazole Sodium 40 mg DAILY PO 03/20/24 10:00 03/20/24 09:39 40 MG Ranolazine 500 mg BID PO 03/19/24 22:00 03/20/24 09:39 500 MG Sacubitril/ Valsartan 1 tab BID PO 03/19/24 22:00 03/20/24 09:40 1 TAB Tamsulosin HCl 0.4 mg QPM PO 03/19/24 18:00 03/19/24 17:29 0.4 MG Fluoxetine HCl 20 mg DAILY PO 03/20/24 10:00 03/20/24 09:39 20 MG Albuterol 2.5 mg Q4HR NEB 03/19/24 18:00 03/20/24 14:33 2.5 MG Ipratropium [place] 0.5 mg Q4HR NEB 03/19/24 18:00 03/20/24 14:33 0.5 MG Morphine Sulfate 2 mg Q4HPRN PRN IV 03/19/24 17:30 03/20/24 11:25 2 MG Azithromycin 250 ml @ 125 mls/hr DAILY IV 03/21/24 10:00 Prednisone 40 mg DAILY PO 03/21/24 10:00 Examination Elderly patient lying in bed, in no acute distress General: Overweight, afebrile, palor, mucosae are dry. Bilateral resting tremors noted in upper extremities. Cardiovascular: Regular S1 and S2. No murmurs, gallops or rubs. No JVD elevation. No pedal edema Respiratory: Bilateral wheezing heard on 4 L home oxygen, saturating 92% Abdomen: Soft, diffuse abdominal tenderness, nondistended, normoactive bowel sounds, no rebound tenderness, no organomegaly, no masses. Right costovertebral tenderness. Joshi catheter is seen draining 20 mL of yellow urine. Genitourinary: Deferred MSK/skin: Mobilizes 4 limbs. Skin is dry and warm Neurological: No motor, no sensitive deficits, normal speech. Pupils are isocoric and reactive. Psych/Mental Status: A/Ox4 laboratory and microbiology Laboratory Tests 03/20/24 09:20 Test 03/20/24 09:20 Range/Units Serum Glucose 140 H 74-106 mg/dL Microbiology Date/Time Source Procedure Growth Status 03/19/24 20:24 Nose MRSA Screen - Final Complete Labs and/or images reviewed: Labs reviewed by me, Image(s) reviewed by me Problem List/Assessment/Plan Problem List/Assessment/Plan Acute COPD exacerbation Continue nebulized treatment with levalbuterol and ipratropium q.4 hourly COVID and influenza testing, MRSA screen pending Azithromycin IV daily starting 03/20 for the next 5 days Patient received IV Solu-Medrol 125 mg on 03/19 by the ER Continue prednisolone 40 mg daily starting 03/20/2020 Elevated WBC secondary to Acute cystitis Patient was recently hospitalized in this facility on 03/02/2024 for UTI due to ESBL Continue ertapenem IV daily Urine culture pending LENORA on CKD 3A LR 500 mL bolus given Maintenance LR at 50 cc/hour - only 1 L Creatinine raised from 1.1-1.7 Anemia normocytic - likely anemia of chronic disease Transfuse if hemoglobin less than 7 Heart failure with reduced ejection fraction - EF 10% - no exacerbation status post Biotronik AICD History of CAD status post CABG Ischemic cardiomyopathy Hypertension-controlled Continue home medication Entresto b.i.d., furosemide 40 mg daily, Coreg 3.125 b.i.d., ranolazine 500 mg b.i.d., aspirin 81 mg daily, clopidogrel 75 mg daily Parkinson disease - on no treatment - wheelchair-bound Physical therapy consulted Dyslipidemia Continue home dose atorvastatin 20 mg daily History of GERD Continue home dose pantoprazole 40 mg daily Diverticulosis Seen on CT completed on 03/20/2024 Monitor Rectal wall thickening Seen on previous CT which showed mild thickening of the wall of the rectum 11-[address] scan completed 03/20/2024-no acute abdominal or pelvic finding. On a diverticulosis DVT prophylaxis Lovenox 40 mg sc daily Physical therapy consulted Plan discussed with patient in which all questions have been answered Goals of care discussed with the patient, DNR status Plan discussed with Dr. Reed. Plan discussed with: Patient My Orders My Orders Orders - RAVIN HOWELL Procedure Category Date Status Time Pt Request For Service PT 03/20/24 Logged 09:07 Covid19 Antigen Mer[facility] LAB 03/20/24 Logged Rapid Influenza A&B LAB 03/20/24 Logged 10:24 Drug Screen LAB 03/20/24 Logged 10:26 Lactated Ringer's PHA 03/20/24 In Process 12:45 Lactated Ringer's PHA 03/20/24 In Process 16:45 Ok To Change Joshi ORDERS 03/20/24 Transmitted 13:21 Date of Service: Mar 20, 2024 Billing Provider: RANJITH REED MD Common Visit Codes: [id number] INP/OBS CARE(HIGH) RAVIN HOWELL RESIDENT Mar 20, 2024 15:06 RANJITH REED MD Mar 20, 2024 17:00
[2024-03-20 18:22] LABS: COVID19 ANTIGEN SOFIA FIA NEGATIVE (NEGATIVE); Rapid Influenza A Negative (Negative); Rapid Influenza B Negative (Negative)
[2024-03-20] MEDS: ENOXAPARIN SOD 30 MG/0.3 ML SYRINGE SC ONE (19:57)
[2024-03-20] MEDS: ERTAPENEM SOD INJ 1 GM in SODIUM CHL 0.9% 50 ML IV ONE (20:00)
[2024-03-21] VITALS (20 sets, daily range): BP systolic 102–123; BP diastolic 41–57; PULSE 67–89; RESP 16–20; TEMP 98–98.1; O2SAT 94–98
[2024-03-21 06:15] LABS: Basophils # (auto) 0.1 10 ^3/uL (0-0.2); Basophils % (auto) 0.5 % (0.0-2.0); Eosinophils # (auto) 0 10 ^3/uL (0-0.8); Hematocrit 33.6 % (36.0-46.0); Hemoglobin 11.2 g/dL (12.2-16.2); Lymphocytes # (auto) 1.2 10 ^3/uL (0.4-5.4); Lymphocytes % (auto) 9.9 % (10.0-50.0); Mean Corpuscular Hemoglobin 29.6 pg (28.0-32.0); Mean Corpuscular Hgb Conc. 33.4 g/dL (32.0-36.0); Mean Corpuscular Volume 88.8 fL (80.0-100.0); Monocytes # (auto) 0.4 10 ^3/uL (0-1.3); Monocytes % (auto) 3.6 % (0.0-12.0); Neutrophils # (auto) 10.4 10 ^3/uL (1.6-8.6); Nucleated Red Blood Cells % 0.1 %; Platelet Count (auto) 200 10^3/uL (140-450); Red Blood Cells 3.79 10^6/uL (4.0-5.20); Red Cell Distribution Width 16.6 % (11.8-14.3); White Blood Cell 12.1 10^3/uL (4.4-10.8)
[2024-03-21 06:18] LABS: Anion Gap 4 (5-15); Carbon Dioxide 27 mmol/L (20-31); Chloride 107 mmol/L (98-107); Potassium 4.6 mmol/L (3.5-5.1); Sodium 138 mmol/L (136-145)
[2024-03-21 06:19] LABS: Calcium 9.2 mg/dL (8.7-10.4)
[2024-03-21 06:23] LABS: Glucose 154 mg/dL (74-106)
[2024-03-21 06:24] LABS: BUN/Creatinine Ratio 22.8 (10.0-20.0)
[2024-03-21 06:32] LABS: Blood Urea Nitrogen 31 mg/dL (9-23)
[2024-03-21] MEDS: ERTAPENEM SOD INJ 0.5 GM in SODIUM CHL 0.9% 50 ML IV SCH (10:00)
[2024-03-21] MEDS: MORPHINE SULFATE 4 MG/ML SYR/VIAL IV ONE (11:13)
[2024-03-21] MEDS: ENOXAPARIN SOD 30 MG/0.3 ML SYRINGE SC SCH (11:14)
[2024-03-21] MEDS: predniSONE 20 MG TAB PO SCH (11:16)
[2024-03-21] MEDS ORDERED: guaiFENesin 200 MG/10 ML UD PO PRN (12:00)
[2024-03-21] MEDS: MILK OF MAGNESIA 30ML SUSP PO ONE (12:00)
[2024-03-21] MEDS: AZITHROMYCIN 500MG/ 250ML 250 ML IV SCH (13:05)
--- NOTE | 2024-03-21 14:27 | DVH ---
CLINICAL HISTORY: Right inguinal tenderness. COMPARISON: Correlation made to CT of the abdomen and pelvis dated 03/20/2024. TECHNIQUE: Grayscale sonographic imaging of the right inguinal region was performed to evaluate the a andre of clinical concern, assisted by color doppler technique. FINDINGS: No mass or fluid collection seen in the right inguinal region. No visualized hernia on ult rasound. IMPRESSION: No sonographic abnormality identified in the area of clinical concern in the right inguinal region.
[2024-03-21 14:35] LABS: Amphetamine Screen, Urine Neg (NEGATIVE)
[2024-03-21 14:36] LABS: Barbiturate Scree,Urine Neg (NEGATIVE); Benzodiazephine Screen, Urine Neg (NEGATIVE); Cannabinoid Screen, Urine Neg (NEGATIVE); Cocaine Screen, Urine Neg (NEGATIVE); Opiate Scree,Urine Neg (NEGATIVE); Phencyclidine Screen, Urine Neg (NEGATIVE)
[2024-03-21] MEDS: ARTIFICIAL TEARS 15ml EACHEYE PRN (15:22)
--- NOTE | 2024-03-21 18:42 | DVHPNRES ---
Progress Note Date Seen: Mar 21, 2024 Resident Creating Document: RAVIN HOWELL RESIDENT Medical Necessity Reason Pt with a Central, PICC or Fol: Yes The following are medically ne: Joshi Catheter Subjective Review of Systems This is a 70 this is a 78-year-old female patient with PMHx of COPD on 4 L home oxygen, Parkinson's disease-confined to wheelchair, not on any medication for Parkinson, history of 7 [place] status post CABG 2010, CHF (EF 10%), multiple UTIs, GERD, gout, hyperlipidemia, hypertension, kidney stones, diverticulosis, mild thickening of the wall of the rectum, CKD 3A who presented to the ER from [facility] with a chief complaint of shortness of breaths and worsening cough along with dysuria. Patient reports shortness of breaths on 4 L home oxygen, but mentioned that nobody titrated up or increased nebulized treatments. She does report chronic cough which is worsening for the past week, is dry and associated with pleuritic chest pain. She also reports diffuse abdominal pain, nausea dysuria and cloudy urine along with frequency but denies vomiting/fevers/recent travel. 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 He is A&O x4. Past medical history COPD on 4 L home oxygen, Parkinson's disease-confined to wheelchair, not on any medication for Parkinson, history of 7 MO status post CABG 2010, CHF (EF 10%), multiple UTIs, GERD, gout, hyperlipidemia, hypertension, kidney stones, diverticulosis, mild thickening of the wall of the rectum, CKD 3A Past surgical history Right ovarian mass status post resection, complete hysterectomy, appendectomy, CAD status post CABG, tonsillectomy Social history Lives at [facility] since August 17, previous living facility was [facility] for the past 4 years Former smoker quit 2010 Denies drinking or illicit drug use PCP Dr. 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 Mercado 03/20-Patient seen and examined at bedside. Reports diffuse generalized body ache and abdominal pain, dysuria. 03/21-patient seen and examined at bedside. Reports feeling better. Patient looks better. Saturating 96 on 4 L. Bilateral wheezing heard. Objective vital signs Vital Sign Date Time Temp Pulse Resp B/P (MAP) Pulse Ox O2 Delivery O2 Flow Rate FiO2 03/21/24 18:28 82 18 98 03/21/24 17:00 98.1 109/41 (63) 98.1 03/21/24 13:59 Nasal Cannula 4.0 03/21/24 13:59 36 Total Intake and Output 03/20/24 03/20/24 03/21/24 15:00 23:00 07:00 Intake Total 1020 ml 200 ml Output Total 400 ml 350 ml Balance 620 ml -150 ml medications Current Medications Medications Dose Ordered Sig/Asha Route Start Time Stop Time Status Last Admin Dose Admin Temazepam 15 mg QHSP PRN PO 03/19/24 15:45 Acetaminophen/ Hydrocodone Bitart 1 tab Q4HP PRN PO 03/19/24 15:45 Ondansetron HCl 4 mg Q4HP PRN IV 03/19/24 15:45 03/21/24 15:36 4 MG Atorvastatin Calcium 20 mg HS PO 03/19/24 22:00 03/20/24 21:47 20 MG Carvedilol 3.125 mg BID PO 03/19/24 22:00 03/21/24 11:15 3.125 MG Clopidogrel Bisulfate 75 mg DAILY PO 03/20/24 10:00 03/21/24 11:15 75 MG Furosemide 40 mg DAILY PO 03/20/24 10:00 03/21/24 11:14 40 MG Pantoprazole Sodium 40 mg DAILY PO 03/20/24 10:00 03/21/24 11:16 40 MG Ranolazine 500 mg BID PO 03/19/24 22:00 03/21/24 11:15 500 MG Sacubitril/ Valsartan 1 tab BID PO 03/19/24 22:00 03/21/24 11:15 1 TAB Tamsulosin HCl 0.4 mg QPM PO 03/19/24 18:00 03/21/24 18:00 0.4 MG Fluoxetine HCl 20 mg DAILY PO 03/20/24 10:00 03/21/24 11:14 20 MG Albuterol 2.5 mg Q4HR NEB 03/19/24 18:00 03/21/24 18:27 2.5 MG Ipratropium [place] 0.5 mg Q4HR NEB 03/19/24 18:00 03/21/24 18:27 0.5 MG Morphine Sulfate 2 mg Q4HPRN PRN IV 03/19/24 17:30 03/21/24 15:32 2 MG Azithromycin 250 ml @ 125 mls/hr DAILY IV 03/21/24 10:00 03/21/24 13:05 125 MLS/HR Prednisone 40 mg DAILY PO 03/21/24 10:00 03/21/24 11:16 40 MG Ertapenem 0.5 gm/ Sodium Chloride 50 ml @ 100 mls/hr DAILY IV 03/21/24 10:00 03/21/24 10:00 100 MLS/HR Enoxaparin Sodium 30 mg DAILY SC 03/21/24 10:00 03/21/24 11:14 30 MG Artificial Tears 1 drop Q6HP PRN EACHEYE 03/21/24 10:45 03/21/24 15:22 1 DROP Guaifenesin 200 mg Q6HP PRN PO 03/21/24 12:00 Examination Elderly patient lying in bed, in no acute distress General: Overweight, afebrile, palor, mucosae are dry. Bilateral resting tremors noted in upper extremities. Cardiovascular: Regular S1 and S2. No murmurs, gallops or rubs. No JVD elevation. No pedal edema Respiratory: Bilateral wheezing heard on 4 L home oxygen, saturating 96% Abdomen: Soft, diffuse abdominal tenderness, nondistended, normoactive bowel sounds, no rebound tenderness, no organomegaly, no masses. Right inguinal ligament region tenderness. Right costovertebral tenderness. Joshi catheter is seen draining 20 mL of yellow urine. Genitourinary: Deferred. Joshi catheter draining 200 mL yellow urine. MSK/skin: Mobilizes 4 limbs. Skin is dry and warm Neurological: No motor, no sensitive deficits, normal speech. Pupils are isocoric and reactive. Psych/Mental Status: A/Ox4 laboratory and microbiology Laboratory Tests 03/21/24 04:45 Test 03/21/24 04:45 Range/Units Serum Glucose 154 H 74-106 mg/dL Microbiology Date/Time Source Procedure Growth Status 03/19/24 20:24 Nose MRSA Screen - Final Complete Labs and/or images reviewed: Labs reviewed by me, Image(s) reviewed by me Problem List/Assessment/Plan Problem List/Assessment/Plan Acute COPD exacerbation Continue nebulized treatment with levalbuterol and ipratropium q.4 hourly COVID and influenza testing, MRSA screen pending Azithromycin IV daily starting 03/20 for the next 5 days Patient received IV Solu-Medrol 125 mg on 03/19 by the ER Continue prednisolone 40 mg daily starting 03/20/2020 Guaifenesin 200 oral for cough Elevated WBC secondary to Acute cystitis Patient was recently hospitalized in this facility on 03/02/2024 for UTI due to ESBL Continue ertapenem IV daily Urine culture pending LENORA on CKD 3A LR 500 mL bolus given 03/20 Maintenance LR at 50 cc/hour - only 1 L-03/20 Creatinine down trended from 1.7-1.3 Anemia normocytic - likely anemia of chronic disease Transfuse if hemoglobin less than 7 Heart failure with reduced ejection fraction - EF 10% - no exacerbation status post Biotronik AICD History of CAD status post CABG Ischemic cardiomyopathy Hypertension-controlled Continue home medication Entresto b.i.d., furosemide 40 mg daily, Coreg 3.125 b.i.d., ranolazine 500 mg b.i.d., aspirin 81 mg daily, clopidogrel 75 mg daily Parkinson disease - on no treatment - wheelchair-bound Physical therapy consulted Dyslipidemia Continue home dose atorvastatin 20 mg daily History of GERD Continue home dose pantoprazole 40 mg daily Diverticulosis Seen on CT completed on 03/20/2024 Monitor Constipation One dose of milk of magnesia ordered. Rectal wall thickening Seen on previous CT which showed mild thickening of the wall of the rectum 11-[address] scan completed 03/20/2024-no acute abdominal or pelvic finding. diverticulosis seen. DVT prophylaxis Lovenox 40 mg sc daily Physical therapy consulted Plan discussed with patient in which all questions have been answered Goals of care discussed with the patient for 20 minutes, DNR status Plan discussed with Dr. Lazo Plan discussed with: Patient, Other (RN) My Orders My Orders Orders - RAVIN HOWELL RESIDENT Procedure Category Date Status Time Strict I & O AME 03/20/24 In Process 18:46 Strict Aspiration AME 03/20/24 In Process Precautions 18:46 Urine Bacterial MELVIN 03/21/24 In Process Culture 11:41 Guaifenesin Plain PHA 03/21/24 In Process Liquid (Robitussin Daniel 12:00 Right Lower Extremity US 03/21/24 Resulted Ultrasou Addendum Addendum Addendum I was physically present for the harris portions of the service provided to patient by THE RESIDENT. I have reviewed the documentation, discussed the case with resident and agree with the resident's documentation except as noted. Also the patient's clinical case was discussed with the patient's nurse. This medical document was created using an electronic medical record system with computerized dictation system. Although this document has been carefully reviewed, there might still be some phonetic and typographical errors. These areas are purely typographical due to imperfections of the software programs, and do not reflect any compromise in the patient's medical care. Late signature. Date of Service: Mar 21, 2024 Billing Provider: ANGELLA LAZO MD Common Visit Codes: [id number] INP/OBS CARE(HIGH) Secondary Visit Codes: [id number] CARE PLAN 30 MINUTES (20 minutes) RAVIN HOWELL RESIDENT Mar 21, 2024 18:42 ANGELLA LAZO MD Mar 22, 2024 04:52
[2024-03-22] VITALS (24 sets, daily range): BP systolic 94–126; BP diastolic 44–56; PULSE 62–82; RESP 16–22; TEMP 97.6–98.4; O2SAT 91–100
[2024-03-22 06:27] LABS: Basophils # (auto) 0 10 ^3/uL (0-0.2); Basophils % (auto) 0.2 % (0.0-2.0); Eosinophils # (auto) 0 10 ^3/uL (0-0.8); Eosinophils % (auto) 0.2 % (0.0-7.0); Hematocrit 34.3 % (36.0-46.0); Hemoglobin 11.5 g/dL (12.2-16.2); Lymphocytes # (auto) 2.1 10 ^3/uL (0.4-5.4); Lymphocytes % (auto) 15.7 % (10.0-50.0); Mean Corpuscular Hemoglobin 29.6 pg (28.0-32.0); Mean Corpuscular Hgb Conc. 33.4 g/dL (32.0-36.0); Mean Corpuscular Volume 88.6 fL (80.0-100.0); Monocytes # (auto) 0.8 10 ^3/uL (0-1.3); Monocytes % (auto) 6.3 % (0.0-12.0); Neutrophils # (auto) 10.3 10 ^3/uL (1.6-8.6); Neutrophils % (auto) 77.6 % (37.0-80.0); Nucleated Red Blood Cells % 0.2 %; Platelet Count (auto) 250 10^3/uL (140-450); Red Blood Cells 3.87 10^6/uL (4.0-5.20); Red Cell Distribution Width 17.1 % (11.8-14.3); White Blood Cell 13.3 10^3/uL (4.4-10.8)
[2024-03-22 06:38] LABS: Chloride 103 mmol/L (98-107); Potassium 4.8 mmol/L (3.5-5.1); Sodium 139 mmol/L (136-145)
[2024-03-22 06:39] LABS: Anion Gap 7 (5-15); Carbon Dioxide 29 mmol/L (20-31)
[2024-03-22 06:40] LABS: Calcium 9.5 mg/dL (8.7-10.4)
[2024-03-22 06:44] LABS: Blood Urea Nitrogen 30 mg/dL (9-23); Glucose 104 mg/dL (74-106)
--- NOTE | 2024-03-22 19:37 | DVHPNRES ---
Progress Note Date Seen: Mar 22, 2024 Resident Creating Document: NIRALI MARTINO RESIDENT Medical Necessity Reason Pt with a Central, PICC or Fol: Yes The following are medically ne: Joshi Catheter Subjective Review of Systems pt seen and examined at bedside. she is currently on 4lt of O2 through nasal canula, which she uses at home. She is mentioning of no improvement in cough, denied any other complaints of chest pain, n/v/headache, dizziness. she is denying cough syrup as per nurse. also mentions of constipation Of systems ROS Constitutional: No: Fever, Chills, Sweats, Weakness, Malaise, Other Eyes: No: Pain, Vision change, Conjunctivae inflammation, Eyelid inflammation, Other, Redness ENT: No: Ear pain, Ear discharge, Nose pain, Nose discharge, Nose congestion, Mouth pain, Mouth swelling, Throat pain, Throat swelling, Other Respiratory: Cough, Dry, NO: Shortness of breath, SOB with excertion, Wheezing, Hemoptysis, Pleuritic Pain, Sputum, Wheezing, Other Cardiovascular: No: Chest Pain, Palpitations, Orthopnea, Paroxysmal Noc. Dyspnea, Edema, Lt Headedness, Other Gastrointestinal: No: Nausea, Vomiting, Abdominal Pain, Diarrhea, Constipation, Melena, Hematochezia, Other Musculoskeletal: No: other, neck pain, shoulder pain, arm pain, back pain, hand pain, leg pain, foot pain Neurological:; No: Weakness, Numbness, Incoordination, Change in speech, Confusion, Seizures Objective vital signs Vital Sign Date Time Temp Pulse Resp B/P (MAP) Pulse Ox O2 Delivery O2 Flow Rate FiO2 03/22/24 18:22 70 18 103/56 03/22/24 17:00 98.1 94 98.1 03/22/24 13:24 Nasal Cannula 4.0 03/22/24 13:24 36 Total Intake and Output 03/21/24 03/21/24 03/22/24 15:00 23:00 07:00 Intake Total 50 ml 1150 ml 510 ml Output Total 1100 ml 525 ml Balance 50 ml 50 ml -15 ml medications Current Medications Medications Dose Ordered Sig/Asha Route Start Time Stop Time Status Last Admin Dose Admin Temazepam 15 mg QHSP PRN PO 03/19/24 15:45 Acetaminophen/ Hydrocodone Bitart 1 tab Q4HP PRN PO 03/19/24 15:45 Ondansetron HCl 4 mg Q4HP PRN IV 03/19/24 15:45 03/22/24 17:51 4 MG Atorvastatin Calcium 20 mg HS PO 03/19/24 22:00 03/21/24 21:32 20 MG Carvedilol 3.125 mg BID PO 03/19/24 22:00 03/22/24 11:02 3.125 MG Clopidogrel Bisulfate 75 mg DAILY PO 03/20/24 10:00 03/22/24 11:02 75 MG Furosemide 40 mg DAILY PO 03/20/24 10:00 03/22/24 11:01 40 MG Pantoprazole Sodium 40 mg DAILY PO 03/20/24 10:00 03/22/24 11:01 40 MG Ranolazine 500 mg BID PO 03/19/24 22:00 03/22/24 11:00 500 MG Sacubitril/ Valsartan 1 tab BID PO 03/19/24 22:00 03/22/24 11:01 1 TAB Tamsulosin HCl 0.4 mg QPM PO 03/19/24 18:00 03/22/24 17:51 0.4 MG Fluoxetine HCl 20 mg DAILY PO 03/20/24 10:00 03/22/24 11:01 20 MG Albuterol 2.5 mg Q4HR NEB 03/19/24 18:00 03/22/24 18:56 2.5 MG Ipratropium [place] 0.5 mg Q4HR NEB 03/19/24 18:00 03/22/24 18:56 0.5 MG Morphine Sulfate 2 mg Q4HPRN PRN IV 03/19/24 17:30 03/22/24 17:52 2 MG Azithromycin 250 ml @ 125 mls/hr DAILY IV 03/21/24 10:00 03/22/24 10:59 125 MLS/HR Prednisone 40 mg DAILY PO 03/21/24 10:00 03/22/24 11:01 40 MG Artificial Tears 1 drop Q6HP PRN EACHEYE 03/21/24 10:45 03/21/24 15:22 1 DROP Guaifenesin 200 mg Q6HP PRN PO 03/21/24 12:00 Enoxaparin Sodium 40 mg DAILY SC 03/23/24 10:00 Ertapenem 1 gm/ Sodium Chloride 50 ml @ 100 mls/hr DAILY IV 03/23/24 10:00 Examination Examination: General Appearance: Alert, Oriented X3, Cooperative, No acute distress HEENT: EOMI Respiratory: bilateral scattered wheezing Cardiovascular: Regular rate, Normal S1, Normal S2 Abdominal: Normal bowel sounds Extremities: No cyanosis, No edema, Normal pulses, No tenderness/swelling Skin: No rashes, No breakdown Neuro: Normal gait, Normal speech, Strength at 5/5 X4 ext, Normal tone, Sensation intact, Cranial nerves 3-12 NL, Reflexes 2+ Psych/Mental Status: Mental status NL, Mood NL laboratory and microbiology Laboratory Tests 03/22/24 04:56 Test 03/22/24 04:56 Range/Units Serum Glucose 104 74-106 mg/dL Microbiology Date/Time Source Procedure Growth Status 03/21/24 13:59 Urine - Joshi [place] Urine Culture - Preliminary Resulted 03/19/24 20:24 Nose MRSA Screen - Final Complete Labs and/or images reviewed: Labs reviewed by me, Image(s) reviewed by me Problem List/Assessment/Plan Problem List/Assessment/Plan Assessment/plan #Acute COPD exacerbation -continue neb with ipratropium and albuterol -continue prednisone -IV azithromycin -maintain SpO2 between 88-92 % #UTI -IV ertapenem based on previous, will de-escalate per culture results -urine culture #LENORA on CKD-improving -received IV fluids; avoid nephrotoxic agents -monitor BMP #HFrEF likely due to ischemic cardiomyopathy -continue home meds #Parkinson disease -currently not on treatment, wheelchair bound #CAD, history of CABG -continue DAPT -Continue statins #Dyslipidemia -continue statins #GERD -continue pantoprazole #Diverticulosis -stable #Constipation -ordered MiraLax #DVT prophylaxis -continue lovenox 40mg SC daily Case discussion with Dr. Jovita WORLEY planning within 24-48 hrs Plan discussed with: Patient, Other (RN) My Orders My Orders Orders - NIRALI MARTINO RESIDENT Procedure Category Date Status Time Ertapenem Sod Inj PHA 03/23/24 In Process (Invanz) 10:00 Addendum Addendum Addendum I was physically present for the harris portions of the service provided to patient by THE RESIDENT. I have reviewed the documentation, discussed the case with resident and agree with the resident's documentation except as noted. Also the patient's clinical case was discussed with the patient's nurse. This medical document was created using an electronic medical record system with computerized dictation system. Although this document has been carefully reviewed, there might still be some phonetic and typographical errors. These areas are purely typographical due to imperfections of the software programs, and do not reflect any compromise in the patient's medical care. Late signature. Date of Service: Mar 22, 2024 Billing Provider: ANGELLA LAZO MD Common Visit Codes: [id number] INP/OBS CARE(HIGH) NIRALI MARTINO RESIDENT Mar 22, 2024 19:37 ANGELLA LAZO MD Mar 23, 2024 05:01
[2024-03-23] VITALS (20 sets, daily range): BP systolic 114–131; BP diastolic 40–75; PULSE 61–87; RESP 14–24; TEMP 97.6–98.7; O2SAT 93–100
[2024-03-23] MEDS: POLYETHYLENE GLYCOL 17 GM PWDR PO ONE (04:59)
[2024-03-23 05:25] LABS: Basophils # (auto) 0 10 ^3/uL (0-0.2); Basophils % (auto) 0.2 % (0.0-2.0); Eosinophils # (auto) 0 10 ^3/uL (0-0.8); Eosinophils % (auto) 0.2 % (0.0-7.0); Hematocrit 35.2 % (36.0-46.0); Hemoglobin 11.9 g/dL (12.2-16.2); Lymphocytes # (auto) 1.8 10 ^3/uL (0.4-5.4); Lymphocytes % (auto) 15.2 % (10.0-50.0); Mean Corpuscular Hemoglobin 30.3 pg (28.0-32.0); Mean Corpuscular Hgb Conc. 33.8 g/dL (32.0-36.0); Mean Corpuscular Volume 89.4 fL (80.0-100.0); Monocytes % (auto) 8.5 % (0.0-12.0); Neutrophils % (auto) 75.9 % (37.0-80.0); Platelet Count (auto) 222 10^3/uL (140-450); Red Blood Cells 3.94 10^6/uL (4.0-5.20); Red Cell Distribution Width 17.1 % (11.8-14.3); White Blood Cell 11.8 10^3/uL (4.4-10.8)
[2024-03-23 05:32] LABS: Chloride 103 mmol/L (98-107); Potassium 4.9 mmol/L (3.5-5.1); Sodium 138 mmol/L (136-145)
[2024-03-23 05:33] LABS: Anion Gap 5 (5-15); Calcium 9.7 mg/dL (8.7-10.4); Carbon Dioxide 30 mmol/L (20-31)
[2024-03-23 05:38] LABS: Glucose 119 mg/dL (74-106)
[2024-03-23 05:39] LABS: Blood Urea Nitrogen 30 mg/dL (9-23); Magnesium 2.5 mg/dL (1.6-2.6)
[2024-03-23] MEDS ORDERED: ERTAPENEM SOD INJ 1 GM in SODIUM CHL 0.9% 50 ML IV SCH (10:00)
[2024-03-23] MEDS: AZITHROMYCIN 250 MG TAB PO SCH (10:23)
[2024-03-23] MEDS: ENOXAPARIN SOD 40 MG/0.4 ML SYRINGE SC SCH (10:23)
--- NOTE | 2024-03-23 14:36 | DVHDSRES ---
Discharge Summary Date of Admission Resident Creating Document: RAVIN HOWELL RESIDENT Mar 19, 2024 at 15:37 Date of Discharge: Mar 23, 2024 Labs/Diagnostic Data: Laboratory Results Test 03/23/24 04:44 03/21/24 13:59 03/20/24 13:34 03/20/24 09:20 White Blood Count 11.8 10^3/uL (4.4-10.8) Red Blood Count 3.94 10^6/uL (4.0-5.20) Hemoglobin 11.9 g/dL (12.2-16.2) Hematocrit 35.2 % (36.0-46.0) Mean Corpuscular Volume 89.4 fL (80.0-100.0) Mean Corpuscular Hemoglobin 30.3 pg (28.0-32.0) Mean Corpuscular Hemoglobin Concent 33.8 g/dL (32.0-36.0) Red Cell Distribution Width 17.1 % (11.8-14.3) Platelet Count 222 10^3/uL (140-450) Mean Platelet Volume 8.4 fL (6.9-10.8) Neutrophils (%) (Auto) 75.9 % (37.0-80.0) Lymphocytes (%) (Auto) 15.2 % (10.0-50.0) Monocytes (%) (Auto) 8.5 % (0.0-12.0) Eosinophils (%) (Auto) 0.2 % (0.0-7.0) Basophils (%) (Auto) 0.2 % (0.0-2.0) Neutrophils # (Auto) 9.0 10 ^3/uL (1.6-8.6) Lymphocytes # (Auto) 1.8 10 ^3/uL (0.4-5.4) Monocytes # (Auto) 1.0 10 ^3/uL (0-1.3) Eosinophils # (Auto) 0 10 ^3/uL (0-0.8) Basophils # (Auto) 0 10 ^3/uL (0-0.2) Nucleated Red Blood Cells 0.0 % Sodium Level 138 mmol/L (136-145) Potassium Level 4.9 mmol/L (3.5-5.1) Chloride Level 103 mmol/L (98-107) Carbon Dioxide Level 30 mmol/L (20-31) Anion Gap 5 (5-15) Blood Urea Nitrogen 30 mg/dL (9-23) Creatinine 1.25 mg/dL (0.550-1.02) Glomerular Filtration Rate Calc 44 mL/min (>90) BUN/Creatinine Ratio 24.0 (10.0-20.0) Serum Glucose 119 mg/dL (74-106) Calcium Level 9.7 mg/dL (8.7-10.4) Magnesium Level 2.5 mg/dL (1.6-2.6) Urine Opiates Screen Neg (NEGATIVE) Urine Fentanyl Screen Neg (NEGATIVE) Urine Barbiturates Screen Neg (NEGATIVE) Urine Phencyclidine Screen Neg (NEGATIVE) Urine Amphetamines Screen Neg (NEGATIVE) Urine Benzodiazepines Screen Neg (NEGATIVE) Urine Cocaine Screen Neg (NEGATIVE) Urine Cannabinoids Screen Neg (NEGATIVE) Influenza Type A Antigen Negative (Negative) Influenza Type B Antigen Negative (Negative) SARS-CoV-2 Antigen (Rapid) Negative (NEGATIVE) Prothrombin Time 10.9 sec (9.3-11.8) Prothrombin Time INR 1.03 (0.9-1.15) Activated Partial Thromboplast Time 28.2 SEC (24.5-34.5) Total Bilirubin 0.3 mg/dL (0.2-1.0) Direct Bilirubin < 0.1 mg/dL (<0.3) Aspartate Amino Transferase (AST) 15 U/L (13-40) Alanine Aminotransferase (ALT) 15 U/L (7-40) Alkaline Phosphatase 85 U/L (46-116) Total Protein 6.7 g/dL (5.7-8.2) Albumin 4.4 g/dL (3.2-4.8) Thyroid Stimulating Hormone (TSH) 0.57 uIU/mL (0.55-4.78) Test 03/19/24 15:54 03/19/24 13:26 03/19/24 12:56 Troponin I High Sensitivity 31 ng/L (</=34) Urine Color Colorless (Yellow) Urine Clarity Clear (Clear) Urine pH 6.5 (5.0-9.0) Urine Specific [place] 1.007 (1.001-1.035) Urine Protein Negative (Negative) Urine Ketones Negative (Negative) Urine Blood Negative /uL (Negative) Urine Nitrite Negative (Negative) Urine Bilirubin Negative (Negative) Urine Urobilinogen Normal mg/dL (Negative) Urine Leukocyte Esterase 1+ /uL (Negative) Urine RBC 3 /hpf (0 - 4) Urine WBC 3 /hpf (0 - 5) Urine Squamous Epithelial Cells None seen /hpf (<5) Urine Bacteria None seen /hpf (None Seen) Urine Glucose Normal mg/dL (Normal) B-Type Natriuretic Peptide 549.58 pg/mL (0-100) Other Laboratory Tests 03/23/24 04:44 Brief Hx & Hospital Course: Niya Scott is a 69 this is a 78-year-old female patient with PMHx of COPD on 4 L home oxygen, Parkinson's disease-confined to wheelchair, not on any medication for Parkinson, history of 7 OR status post CABG 2010, CHF (EF 10%), multiple UTIs, GERD, gout, hyperlipidemia, hypertension, kidney stones, diverticulosis, mild thickening of the wall of the rectum, CKD 3A who [facility] with a chief complaint of shortness of breaths and worsening cough along with dysuria. Patient reports shortness of breaths on 4 L home oxygen, but mentioned that nobody titrated up or increased nebulized treatments. She does report chronic cough which is worsening for the past week, is dry and associated with pleuritic chest pain. She also reports diffuse abdominal pain, nausea dysuria and cloudy urine along with frequency but denies vomiting/fevers/recent travel. Patient says that CABLE TENDER at the custodial was recently diagnosed with COVID-19. He is A&O x4. PCP Dr. Jackson, volleyball assistant coach Dr. Mercado During hospital stay, patient was diagnosed with acute COPD exacerbation and she was started on nebulized treatment, azithromycin IV starting 03/20 along with prednisolone 40 mg daily. For her dry cough, she was started on guaifenesin 200 mg oral. For the acute cystitis, she was started on ertapenem which she received from 03/20 to 03/23 as she has a history of ESBL UTI last month. Urine bacterial culture final report shows no growth after 48 hours of incubation. Ertapenem was discontinued MRSA screen was negative. Patient had LENORA on CKD 3A for which LR 500 mL bolus was given and her creatinine trended down from 1.7 to 1.25. We continued her home medication Entresto, furosemide, Coreg, hydralazine, aspirin, clopidogrel given her heart failure with EF of 10% and history of CAD and ischemic cardiomyopathy. Given her diffuse abdominal tenderness, A CT scan abdomen was completed which showed no acute abdomen or pelvic finding. Other than diverticulosis. 03/23/2024 - patient is clinically stable, hemodynamically stable , saturating 95 on 4 L home oxygen, and therefore is being discharged to her previous living facility. She will be discharged on azithromycin and prednisolone for the next 3 days. Recommended follow up with primary care physician in 7-14 days. Examination Elderly patient lying in bed, in no acute distress General: Overweight, afebrile, palor, mucosae are dry. Bilateral resting tremors noted in upper extremities. Cardiovascular: Regular S1 and S2. No murmurs, gallops or rubs. No JVD elevation. No pedal edema Respiratory: Bilateral wheezing heard on 4 L home oxygen, saturating 96% Abdomen: Soft, diffuse abdominal tenderness, nondistended, normoactive bowel sounds, no rebound tenderness, no organomegaly, no masses. Right inguinal ligament region tenderness. Right costovertebral tenderness. Joshi catheter is seen draining 20 mL of yellow urine. Genitourinary: Deferred. Joshi catheter draining 200 mL yellow urine. MSK/skin: Mobilizes 4 limbs. Skin is dry and warm Neurological: No motor, no sensitive deficits, normal speech. Pupils are isocoric and reactive. Psych/Mental Status: A/Ox4 Operations or Procedures ORDERING PHYSICIAN: RAVIN HOWELL RESIDENT PROCEDURE(s): RLEXT - RIGHT LOWER EXTREMITY ULTRASOU REASON: RIGHT INQUINAL TENDERNESS ORDER NUMBER(s): [id number], ACCESSION NUMBER(s): [id number] CLINICAL HISTORY: Right inguinal tenderness. COMPARISON: Correlation made to CT of the abdomen and pelvis dated 03/20/2024. TECHNIQUE: Grayscale sonographic imaging of the right inguinal region was performed to evaluate the area of clinical concern, assisted by color doppler technique. FINDINGS: No mass or fluid collection seen in the right inguinal region. No visualized hernia on ultrasound. IMPRESSION: No sonographic abnormality identified in the area of clinical concern in the right inguinal region. ATED BY: AAMIR MURDOCK DO DICTATED DATE/TIME: 03/21/24 1424 SIGNED BY: AAMIR MURDOCK DO SIGNED DATE/TIME: 03/21/24 1424 CC: ORDERING PHYSICIAN: NIRALI MARTINO RESIDENT PROCEDURE(s): ABPL - CT AB PEL WO CON-NO ORAL OR IV REASON: diffuse abd pain ORDER NUMBER(s): [id number], ACCESSION NUMBER(s): [id number] Exam: CT CT AB PEL WO CON-NO ORAL OR IV History: diffuse abd pain Comparison Study: CT CT AB PEL WO CON-NO ORAL OR IV on DOS: 03/02/24, CT CT AB PEL WO CON-NO ORAL OR IV on DOS: 02/15/24, CT CT AB PEL WO CON-NO ORAL OR IV on DOS: 10/30/23, CT CT AB PEL WO CON-NO ORAL OR IV on DOS: 09/24/23, CT CT AB PEL WO CON-NO ORAL OR IV on DOS: 09/17/23 Technique: Multidetector spiral CT of the abdomen and pelvis was performed from lung bases to pubic symphysis. Imaging was performed without IV contrast. Axial, coronal and sagittal multiplanar reformats were obtained from the axial data set by the technologist. Radiation dose : Abdomen/Pelvis: CTDIvol 14.09 mGy, DLP 721.16 mGy*cm. Findings: Evaluation of solid organs is limited due to lack of intravenous contrast use. Lung Bases: There is atelectasis and scarring in the lung bases. Liver: The liver is normal in size. No focal lesions. Gallbladder and biliary Tree: Unremarkable Spleen: Unremarkable Pancreas: The pancreas is grossly normal in appearance. Adrenal Glands: Unremarkable Kidneys: Kidneys are grossly normal without calculi or hydronephrosis. Bladder: Bladder is decompressed with a Joshi catheter and cannot be adequately assessed. Bowel: The stomach is grossly normal in appearance. Small bowel and colon are normal in caliber and distribution. The appendix is not visualized; however, no secondary findings of acute appendicitis identified. Diverticulosis is noted. Ascites: Absent Lymphadenopathy: No mesenteric, retroperitoneal or periportal lymphadenopathy. Abdominal wall and Mesentery: Unremarkable. Vasculature: The visualized abdominal aorta is normal in size and caliber. There is extensive atherosclerotic calcification of the aorta and its branches. Evaluation of abdominal and pelvic vessels is limited due to lack of intravenous contrast. Pelvic Organs: The uterus is surgically absent. Musculoskeletal: No aggressive focal bony lesions, acute fractures or dislocation. IMPRESSION: 1. No acute abdominal or pelvic findings. Diverticulosis Radiation optimization: All CT scans at this facility use at least one of these dose optimization techniques: Automated exposure control mA and/or kV adjustment per patient size (includes targeted exams where dose is matched to clinical indication) or iterative reconstruction. HS:Y ATED BY: ADITHYA HEMPHILL MD DICTATED DATE/TIME: 03/20/241206 SIGNED BY: ADITHYA HEMPHILL MD SIGNED DATE/TIME: 03/20/241206 CC: RDERING PHYSICIAN: AURORA RAMIREZ MD PROCEDURE(s): CXRP - CHEST PORTABLE REASON: sob ORDER NUMBER(s): [id number], ACCESSION NUMBER(s): [id number] EXAM: XY CHEST PORTABLE TECHNIQUE: Single frontal chest radiograph CLINICAL HISTORY: sob COMPARISON: XY CHEST XRAY 1 VIEW on DOS: 02/16/24, XY CHEST PORTABLE on DOS: 12/02/23, XY CHEST PORTABLE on DOS: 11/30/23 Findings/Impression: Frontal chest radiograph demonstrates no acute osseous or superficial soft tissue abnormalities. Left chest wall dual chamber pace maker. The trachea is midline. The cardiac silhouette and mediastinum are within normal limits. Prominent epicardial fat pad. No pneumothorax, pleural effusions, or consolidations. ATED BY: TIERRA LEMOS DO DICTATED DATE/TIME: 03/19/241309 SIGNED BY: TIERRA LEMOS DO SIGNED DATE/TIME: 03/19/24 131 CC: Condition at Discharge: Stable Final Diagnosis/Problems List Acute COPD exacerbation Elevated WBC secondary to Acute cystitis LENORA on CKD 3A Anemia normocytic - likely anemia of chronic disease Heart failure with reduced ejection fraction - EF 10% - no exacerbation status post Biotronik AICD CAD, history of CABG Parkinson disease - on no treatment - wheelchair-bound Dyslipidemia History of GERD Diverticulosis Constipation Discharge Disposition: Home Discharge Instruct/Medications Diet: Cardiac 2g Na,low cholest Activity: No Restrictions, As Tolerated Follow Up/Referral: f/u with PCP within 1 week Medications: prednisone azithromycin Discharge Statement: "Patient was advised to return to the ER or call 911 if any headaches, dizziness, shortness of breath, chest pain, abdominal pain, bleeding, fevers, or worsening of medical condition. Patient was counseled about treatment plan, medications, possible side effects, patientverbalized understanding. All questions were answered to the best of my ability. This discharge took greater then 30 minutes in planning, reviewing documentation, counseling the patient, and discussing with other team members." ASSESSMENT ASSESSMENT Assessment copd exacerbation Date of Service: Mar 23, 2024 Billing Provider: ANGELY BULLOCK MD Common Visit Codes: 90215-BJO/OBS DISCH DAY >30min RAVIN HOWELL RESIDENT Mar 23, 2024 14:36 ANGELY BULLOCK MD Mar 23, 2024 19:04
[2024-03-23] MEDS ORDERED: AZIT-43 PO (17:17)
[2024-03-23] MEDS ORDERED: PRED20TA2 PO (17:17)
[2024-03-24] MEDS ORDERED: POLYETHYLENE GLYCOL 17 GM PWDR PO SCH (10:00)
== END 2024-03-23 20:05 | disposition home or self-care (01) | DRG 682 ==
LOC: ER 12:29 → EDBD 12:29 → OVERFLOW 15:37 → CENTRAL 17:58
PROVIDERS: ADMIT Internal Medicine; ATTEND Internal Medicine
DX: N17.0 Acute kidney failure with tubular necrosis (principal); J96.21 Acute and chronic respiratory failure with hypoxia; I13.0 Hypertensive heart and chronic kidney disease with heart failure and stage 1 through stage 4 chronic kidney disease, or unspecified chronic kidney disease; J44.1 Chronic obstructive pulmonary disease with (acute) exacerbation; N30.00 Acute cystitis without hematuria; I50.22 Chronic systolic (congestive) heart failure; Z20.822 Contact with and (suspected) exposure to COVID-19; G47.00 Insomnia, unspecified; E78.5 Hyperlipidemia, unspecified; N18.31 Chronic kidney disease, stage 3a; I25.5 Ischemic cardiomyopathy; I25.10 Atherosclerotic heart disease of native coronary artery without angina pectoris; F41.9 Anxiety disorder, unspecified; K21.9 Gastro-esophageal reflux disease without esophagitis; M10.9 Gout, unspecified; Z66 Do not resuscitate; K57.30 Diverticulosis of large intestine without perforation or abscess without bleeding; G20.A1 Parkinson's disease without dyskinesia, without mention of fluctuations; F32.A Depression, unspecified; K59.00 Constipation, unspecified; D63.8 Anemia in other chronic diseases classified elsewhere; Z95.1 Presence of aortocoronary bypass graft; Z99.81 Dependence on supplemental oxygen; Z90.710 Acquired absence of both cervix and uterus; Z87.442 Personal history of urinary calculi; Z83.3 Family history of diabetes mellitus; Z82.49 Family history of ischemic heart disease and other diseases of the circulatory system; Z90.49 Acquired absence of other specified parts of digestive tract; Z95.0 Presence of cardiac pacemaker; I25.2 Old myocardial infarction; Z88.5 Allergy status to narcotic agent; Z88.1 Allergy status to other antibiotic agents; Z99.3 Dependence on wheelchair
CPT/HCPCS: 36415; 71045; 74176; 76881; 80048; 80076; 80307; 81001; 83735; 83880; 84443; 84484; 85025; 85610; 85730; 87081; 87086; 87426; 87804; 93005; 94640; 97163; 99291; G0378; J1335; J2405

== ENCOUNTER 2024-04-28 18:11 | Emergency (ER) | payer OTHER, MEDICAID ==
[~2024-04-28] VITALS: Ht 152.4 cm; Wt 72.7 kg
[~2024-04-28 18:11] MED LIST changes: +AZIT-43 PO; +PHEN-922 PO; +PRED20TA2 PO; +PRIM50TA5 PO
--- NOTE | 2024-04-28 18:43 | ED.PDOC ---
General HPI Comments 78y F who presents to the ED via EMS for chief complaint of suprapubic pain. Per EMS, pt is resident at [facility] and states she has been having suprapubic pain since earlier this AM. Pt states she thinks she is passing a kidney stone and thus has been having severe suprapubic pain and states she noticed blood when wiping earlier. Pt states the pain is intermittent, sharp in nature, diffusely located, with no associated exacerbating or relieving factors. Pt has associated nausea but denies vomiting, diarrhea, fever, cough, chills, dysuria, chest pain or shortness of breath. Pt states she has history of chronic UTI's and has been hospitalized and given IV antibiotics. EMS states pt was given Zofran with some relief of her nausea prior to ED arrival. Per prior records, pt has been to [facility] 1-2x every month for similar complaints and hospitalized for IV antibiotics and discharged back to [facility] facility. Pt otherwise denies any other symptoms at this time. 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 OPERATORCARLENE MEJIA Codeine (Verified Allergy, Unknown, 09/01/20) Hydrocodone (Verified Allergy, Unknown, rash, 05/18/23) tylenol is okay per patient Home Meds Active Scripts Nitrofurantoin Monohydrate Mac (Macrobid) 100 Mg Cap, 100 MG PO BID for 7 Days, #14 CAP Prov:WILMER LUCERO MD 04/28/24 Phenazopyridine HCl (Phenazopyridine Hydrochlo) 200 Mg Tab, 200 MG PO TID for 3 Days, #9 TAB Prov:NIRALI MARTINO RESIDENT 04/10/24 Primidone (MYSOLINE TABLET) 50 Mg Tb, 25 MG PO HS for 30 Days, #15 TAB Prov:NIRALI MARTINO RESIDENT 04/10/24 Prednisone (Prednisone) 20 Mg Tab, 40 MG PO DAILY for 3 Days, #6 TAB Prov:NIRALI MARTINO RESIDENT 03/23/24 Azithromycin (Azithromycin) 250 Mg Tab, 500 MG PO DAILY for 3 Days, #6 TAB Prov:NIRALI MARTINO RESIDENT 03/23/24 Clopidogrel Bisulfate (CLOPIDOGREL) 75 Mg Tab, 75 MG PO DAILY for 30 Days, #30 TAB 5 Refills Prov:YENNY FRAIRE MD 11/26/23 Tamsulosin Hcl (Flomax) 0.4 Mg Cap, 0.4 MG PO QPM for 30 Days, #30 CAP Prov:BHARAT MICHELLE RESIDENT 10/18/23 Ranolazine (Ranolazine ER) 500 Mg Tab, 500 MG PO BID for 30 Days, #60 TAB 2 Refills Prov:MAGAN RUSS RESIDENT 09/16/23 Sacubitril-Valsartan (Entresto 24-26 mg) 1 Tab Tab, 1 TAB PO BID for 30 Days, #60 TAB 3 Refills Prov:LEANNA BROWN DO 05/22/23 Reported Medications Oxycodone W/ Acetaminophen (Percocet 5/325MG) 1 Tab Tb, 1 TAB PO QID, #120 TAB 01/29/24 Polyethylene Glycol 3350 (Miralax) 17 Gm Pow, 17 GM PO DAILY PRN for FOR CONSTIPATION for 30 Days, #30 01/28/24 Clonazepam (Clonazepam) 1 Mg Tab, 0.5 MG PO TID PRN for ANXIETY, TAB 09/05/23 Lactobacillus (ACIDOPHILUS) Cap, 1 CAP PO BID for 30 Days, #60 09/05/23 Ipratropium-Albuterol (Ipratropium Logan/Albut) 1 Yuli Yuli, 1 VIAL NEB Q6HPRN PRN for SHORTNESS OF BREATH for 13 Days, #180 09/05/23 Fluticasone-Salmeterol (Fluticasone Propionate/SA 250-50 Mcg/Dose) 1 Aer Aer, 1 PUFF INH BID for 30 Days, #60 09/05/23 Albuterol Sulfate (Albuterol Sulfate Hfa) 108 Mcg/Act Aer, 2 PUFF INH Q4HPRN PRN for dyspnea for 17 Days, #18 09/05/23 Cholecalciferol (VITAMIN D3) 2,000 Unit Tab, 1 TAB PO BID for 30 Days, #60 08/28/23 Multiple Vitamin (Tab-A-Radha) Tab, 1 TAB PO DAILY for 30 Days, #30 08/28/23 Aspirin (Aspir-Low) 81 Mg Tab, 1 TAB PO DAILY for 30 Days, #30 08/28/23 Furosemide (Furosemide) 40 Mg Tab, 1 TAB PO DAILY 08/28/23 Ascorbic Acid (VITAMIN C TABLET) 500 Mg Tb, 1 TAB PO BID for 30 Days, #60 05/18/23 Pantoprazole Sodium Sesquihydr (Pantoprazole Sodium) 40 Mg Tab, 1 TAB PO DAILY 05/18/23 Carvedilol (Carvedilol) 3.125 Mg Tab, 1 TAB PO BID for 30 Days, #60 01/02/23 Atorvastatin Calcium (Lipitor) 20 Mg Tab, 1 TAB PO HS for 30 Days, #30 12/30/20 Fluoxetine HCl (Pmdd) (Fluoxetine HCl) 20 Mg Tab, 20 MG PO DAILY, TAB 05/30/20 Information Source: Patient, Emergency Med Personnel Mode of Arrival: EMS Brought in by: EMS Past Medical History PAST MEDICAL HISTORY: Anemia, Anxiety, Asthma, CAD, CHF, COPD, Depression, GERD, Gout, High Lipids, HTN, Kidney Stones, [place], UTI'S Surgical History: Appendectomy, CABG, Hysterectomy, PTCA, 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 History: Ovarian Cysts Family History Family History: Reviewed,noncontributory to illness, Family hx of DM, Family hx of heart gabe Social History Smoker: Non-Smoker Alcohol: Denies ETOH Use Drugs: Denies Drug Use Lives In: Home Constitutional: denies: chills, diaphoresis, fatigue, fever, malaise, sweats, weakness, others EENTM: denies: blurred vision, double vision, ear bleeding, ear discharge, ear drainage, ear pain, ear ringing, eye pain, eye redness, hearing loss, mouth pain, mouth swelling, nasal discharge, nose bleeding, nose congestion, nose pain, photophobia, tearing, throat pain, throat swelling, voice changes, others Respiratory: denies: cough, hemoptysis, orthopnea, SOB at rest, shortness of breath, SOB with excertion, stridor, wheezing, others Cardiovascular: denies: chest pain, dizzy spells, diaphoresis, Dyspnea on exertion, edema, irregular heart beat, left arm pain, lightheadedness, palpitations, PND, syncope, others Gastrointestinal: reports: nausea; denies: abdomen distended, abdominal pain, blood streaked bowels, constipated, diarrhea, dysphagia, difficulty swallowing, hematemesis, melena, poor appetite, poor fluid intake, rectal bleeding, rectal pain, vomiting, others Genitourinary: reports: pain (suprapubic pain); denies: abnormal vagina bleeding, burning, dyspareunia, dysuria, flank pain, frequency, hematuria, incontinence, , vagina discharge, urgency, others Neurological: denies: dizziness, fainting, headache, left sided numbness, left sided weakness, numbness, paresthesia, pre-existing deficit, right sided numbness, right sided weakness, seizure, speech problems, tingling, tremors, weakness, others Musculoskeletal: denies: back pain, gout, joint pain, joint swelling, muscle pain, muscle stiffness, neck pain, others Integumetry: denies: bruises, change in color, change in hair/nails, dryness, laceration, lesions, lumps, rash, wounds, others Allergic/Immunocompromised: denies: Difficulty Healing, Frequent Infections, Hives, Itching, others Hematologic/Lymphatic: denies: anemia, blood clots, easy bleeding, easy bruising, swollen glands, others Endocrine: denies: excessive hunger, excessive sweating, excessive thirst, excessive urination, flushing, intolerance to cold, intolerance to heat, unexpla ined weight gain, unexplained weight loss, others Psychiatric: denies: anxiety, bipolar disorder, depression, hopeless, panic disorder, schizophrenia, sleepless, suicidal, others All Other Systems: Reviewed and Negative Physical Exam General Appearance: No Apparent Distress, Obese HEENT: Other (Pupils symmetric, no facial asymmetry, moist mucous membranes) Neck: Full Range of Motion, Normal Inspection Respiratory: Lungs Clear, No Accessory Muscle Use, No Respiratory Distress, Normal Breath Sounds Cardiovascular: No Edema, No JVD, Regular Rate/Rhythm Breast Exam: Deferred Gastrointestinal: Soft, Suprapubic, Tenderness Genitalia: Deferred Pelvic: Deferred Rectal: Deferred Extremities: Normal inspection, Normal range of motion, Non-tender, No pedal edema Neurologic: Alert (Oriented x4), Other (Moves all extremities, no gross focal deficit) Cerebellar Function: NOT DONE Reflexes: NOT DONE Skin: Dry, Normal Color, Warm Lymphatic: NOT DONE Was a procedure done? Was a procedure done?: No Differential Diagnosis Kidney stone (Female): Musculoskeletal pain, Pyelonephritis, Strain, Other (Narcotic seeking behavior, chronic pain syndrome) Urinary Problem (Female): Pyelonephritis, Urinary retention, UTI X-Ray, Labs, Meds, VS Comment 78-year-old female with a history of prior frequent UTIs and multiple other comorbidities brought in by EMS from group home facility for evaluation of a complaint of dysuria and suprapubic pain. Vitals remarkable for Exam remarkable for suprapubic tenderness to deep palpation. No tenderness to percussion. No rebound or guarding. UA and urine culture pending Previous admission records were reviewed. Nursing facility transfer records were reviewed. Hospitalization was considered, however I discussed the case with Dr. Canas who knows the patient well. He stated the patient has been treated multiple times with broad-spectrum IV antibiotics and continues to complain of urinary symptoms possibly due to chronic pain syndrome and/or narcotic-seeking behavior. He advised me to provide the patient with some pain medication here and discharge the patient back to her facility. He stated the patient does not require any further antibiotic treatment, and has a pain contract in place. Patient treated with the following in the ED: Morphine 6 mg IM, Zofran 4 mg p.o. On re-evaluation, patient appeared to be resting comfortably with stable vitals. Patient will be discharged back to her facility. Time of 1ST Reevaluation: 19:05 Reevaluation 1ST: Unchanged Patient Education/Counseling: Diagnosis, Treatment Family Education/Counseling: No Family Present Departure 1 Departure Time of Disposition: 19:05 Impression: Primary Impression: Suprapubic pain Disposition: 03 RETIREMENT FACILITY Condition: Stable Additional Instructions: I have discussed your case with Dr. Canas, who has taken care of you before and is very familiar with your history. He advised me you do not need IV antibiotics or hospital admission. Per his request, I have prescribed oral antibiotics. Take pain medication according to your pain contract as needed. e-Prescriptions Nitrofurantoin Monohydrate Mac (Macrobid) 100 Mg Cap 100 MG PO BID for 7 Days, #14 CAP Prov: WILMER LUCERO MD 04/28/24 Discharged With: Self Critical Care Note Critical Care Time?: No Stability Stability form required: No Heart Score Heart Score: Heart Score Response (Comments) Value History N/A 0 EKG N/A 0 Age N/A 0 Risk Factors N/A 0 Troponin N/A 0 Total 0 I personally scribed for WILMER LUCREO MD ([email or web address]) on 04/28/24 at 18:43. Electronically submitted by Shelby Sow ([facility]). WILMER LUCERO MD Apr 28, 2024 18:43
[2024-04-28] MEDS ORDERED: NITR-87 PO (19:20)
[2024-04-28] MEDS: ONDANSETRON ODT 4 MG TAB PO ONE (22:26)
[2024-04-28 22:30] VITALS: PULSE 72; RESP 18; O2SAT 97
[2024-04-28] MEDS: MORPHINE SULFATE 4 MG/ML SYR/VIAL IM ONE (22:31)
[2024-04-28 22:55] VITALS: BP 133/97; PULSE 72; RESP 18
[2024-04-28 23:31] LABS: Urine Bacteria None Seen /hpf (None Seen)
[2024-04-28 23:48] LABS: Urine Blood Negative /uL (Negative); Urine Clarity Clear (Clear); Urine Color Yellow (Yellow); Urine Hyaline Cast FEW /lpf (0 - 2); Urine Mucus FEW (None Seen); Urine Protein, UAD Negative (Negative); Urine Specific Gravity 1.022 (1.001-1.035); Urine Urobilinogen Normal (Negative); Urine WBC 18 /hpf (0 - 5)
[2024-04-29] MEDS ORDERED: DULO-141 PO (11:09)
== END 2024-04-28 23:10 ==
LOC: EDBD 18:11 → ER 18:11
DX: R10.9 Unspecified abdominal pain (principal); R11.0 Nausea; I11.0 Hypertensive heart disease with heart failure; I50.9 Heart failure, unspecified; I25.10 Atherosclerotic heart disease of native coronary artery without angina pectoris; F41.9 Anxiety disorder, unspecified; F32.A Depression, unspecified; K21.9 Gastro-esophageal reflux disease without esophagitis; J44.9 Chronic obstructive pulmonary disease, unspecified; M10.9 Gout, unspecified; E78.5 Hyperlipidemia, unspecified; I25.2 Old myocardial infarction; Z86.2 Personal history of diseases of the blood and blood-forming organs and certain disorders involving the immune mechanism; Z98.890 Other specified postprocedural states; Z95.1 Presence of aortocoronary bypass graft; Z90.710 Acquired absence of both cervix and uterus; Z90.49 Acquired absence of other specified parts of digestive tract; Z88.1 Allergy status to other antibiotic agents; Z88.5 Allergy status to narcotic agent; Z88.6 Allergy status to analgesic agent; Z79.02 Long term (current) use of antithrombotics/antiplatelets; Z79.51 Long term (current) use of inhaled steroids; Z79.52 Long term (current) use of systemic steroids; Z79.82 Long term (current) use of aspirin; Z79.899 Other long term (current) drug therapy
CPT/HCPCS: 81001; 87086; 87088; 87186; 96372; 99283; J2270; Q0162

== ENCOUNTER 2024-04-29 01:51 | Inpatient (IN) | payer OTHER, MEDICAID ==
[~2024-04-29] VITALS: Ht 162.6 cm; Wt 76.4 kg
[~2024-04-29 01:51] MED LIST changes: +NITR-87 PO
--- NOTE | 2024-04-29 02:51 | ED.PDOC ---
History of Present Illness HPI Comments 78-year-old female with an extensive PMHx including wheelchair-bound COPD on 4 L oxygen, CHF, CKD, hypertension hyperlipidemia, CAD with status post PTCA, CABG, status post AICD, Parkinson disease presents with multiple chief complaints including chest pain, SOB, cough, nausea, diarrhea, vomiting, and abdominal pain. Patient was just recently seen here at this ER yesterday for abdominal pain and dysuria. Patient reports history of chronic UTIs. She reports history of COPD. Patient states that her pain is localized to her chest, neck, and abdominal area. No other symptoms or modifying factors present at this time. Patient reports chest pain started earlier today. Has been off and on throughout the day. Chief Complaint: Abdominal Pain Time Seen by MD: 02:34 Primary Care Provider: HORTENCIA Reviewed Notes: Medications, Allergies Allergies: Coded Allergies: Ceftriaxone (Verified Allergy, Intermediate, generalized rash, 11/08/22) CONTRACTING MANAGERCARLENE MEJIA Codeine (Verified Allergy, Unknown, 09/01/20) Hydrocodone (Verified Allergy, Unknown, rash, 05/18/23) tylenol is okay per patient Home Meds Active Scripts Nitrofurantoin Monohydrate Mac (Macrobid) 100 Mg Cap, 100 MG PO BID for 7 Days, #14 CAP Prov:WILMER LUCERO MD 04/28/24 Phenazopyridine HCl (Phenazopyridine Hydrochlo) 200 Mg Tab, 200 MG PO TID for 3 Days, #9 TAB Prov:NIRALI MARTINO RESIDENT 04/10/24 Primidone (MYSOLINE TABLET) 50 Mg Tb, 25 MG PO HS for 30 Days, #15 TAB Prov:NIRALI MARTINO RESIDENT 04/10/24 Prednisone (Prednisone) 20 Mg Tab, 40 MG PO DAILY for 3 Days, #6 TAB Prov:NIRALI MARTINO RESIDENT 03/23/24 Azithromycin (Azithromycin) 250 Mg Tab, 500 MG PO DAILY for 3 Days, #6 TAB Prov:NIRALI MARTINO RESIDENT 03/23/24 Clopidogrel Bisulfate (CLOPIDOGREL) 75 Mg Tab, 75 MG PO DAILY for 30 Days, #30 TAB 5 Refills Prov:YENNY FRAIRE MD 11/26/23 Tamsulosin Hcl (Flomax) 0.4 Mg Cap, 0.4 MG PO QPM for 30 Days, #30 CAP Prov:BHARAT MICHELLE RESIDENT 10/18/23 Ranolazine (Ranolazine ER) 500 Mg Tab, 500 MG PO BID for 30 Days, #60 TAB 2 Refills Prov:MAGAN RUSS RESIDENT 09/16/23 Sacubitril-Valsartan (Entresto 24-26 mg) 1 Tab Tab, 1 TAB PO BID for 30 Days, #60 TAB 3 Refills Prov:LEANNA BROWN DO 05/22/23 Reported Medications Oxycodone W/ Acetaminophen (Percocet 5/325MG) 1 Tab Tb, 1 TAB PO QID, #120 TAB 01/29/24 Polyethylene Glycol 3350 (Miralax) 17 Gm Pow, 17 GM PO DAILY PRN for FOR CONSTIPATION for 30 Days, #30 01/28/24 Clonazepam (Clonazepam) 1 Mg Tab, 0.5 MG PO TID PRN for ANXIETY, TAB 09/05/23 Lactobacillus (ACIDOPHILUS) Cap, 1 CAP PO BID for 30 Days, #60 09/05/23 Ipratropium-Albuterol (Ipratropium Cut Off/Albut) 1 Yuli Yuli, 1 VIAL NEB Q6HPRN PRN for SHORTNESS OF BREATH for 13 Days, #180 09/05/23 Fluticasone-Salmeterol (Fluticasone Propionate/SA 250-50 Mcg/Dose) 1 Aer Aer, 1 PUFF INH BID for 30 Days, #60 09/05/23 Albuterol Sulfate (Albuterol Sulfate Hfa) 108 Mcg/Act Aer, 2 PUFF INH Q4HPRN PRN for dyspnea for 17 Days, #18 09/05/23 Cholecalciferol (VITAMIN D3) 2,000 Unit Tab, 1 TAB PO BID for 30 Days, #60 08/28/23 Multiple Vitamin (Tab-A-Radha) Tab, 1 TAB PO DAILY for 30 Days, #30 08/28/23 Aspirin (Aspir-Low) 81 Mg Tab, 1 TAB PO DAILY for 30 Days, #30 08/28/23 Furosemide (Furosemide) 40 Mg Tab, 1 TAB PO DAILY 08/28/23 Ascorbic Acid (VITAMIN C TABLET) 500 Mg Tb, 1 TAB PO BID for 30 Days, #60 05/18/23 Pantoprazole Sodium Sesquihydr (Pantoprazole Sodium) 40 Mg Tab, 1 TAB PO DAILY 05/18/23 Carvedilol (Carvedilol) 3.125 Mg Tab, 1 TAB PO BID for 30 Days, #60 01/02/23 Atorvastatin Calcium (Lipitor) 20 Mg Tab, 1 TAB PO HS for 30 Days, #30 12/30/20 Fluoxetine HCl (Pmdd) (Fluoxetine HCl) 20 Mg Tab, 20 MG PO DAILY, TAB 05/30/20 Information Source: Patient Mode of Arrival: Ambulatory Severity: Moderate Timing: Days Duration: Since onset Prehospital treatment: None Vital Signs Vital Signs Date Time Temp Pulse Resp B/P (MAP) Pulse Ox O2 Delivery O2 Flow Rate FiO2 04/29/24 03:10 77 04/29/24 02:15 98.6 18 101/65 (03) 97 Physical Exam General: Awake, alert and oriented. No acute distress. Skin: Skin in warm, dry and intact. Appropriate color for ethnicity. Nailbeds pink with no cyanosis. HEENT: The head is normocephalic and atraumatic. Conjunctivae are clear without exudates or hemorrhage. Sclera is non-icteric. EOM are intact. No signs of nystagmus. Eyelids are normal in appearance without swelling or lesions. Oral mucosa is pink and moist Neck: The neck is supple with normal range of motion. No JVD. Cardiac: Heart rate and rhythm are normal. No murmurs, gallops, or rubs are auscultated. Respiratory: No signs of respiratory distress. Lung sounds are clear in all lobes bilaterally without rales, ronchi, or wheezes. Abdominal: Abdomen is soft, generalized abdominal tenderness without distention. No guarding or rigidity. Bowel sounds are present and normoactive in all four quadrants. Extremities: Upper and lower extremities are atraumatic in appearance without deformity or edema. Neurological: The patient is awake, alert and oriented to person, place, and time with normal speech. Speech is clear. There is no facial asymmetry. Psychiatric: Appropriate mood and affect. Good judgement and insight. No visual or auditory hallucinations. Review of Systems: REVIEW OF SYSTEMS: No fever, no chills, or fatigue HEENT: No sore throat, no earache, no congestion, no neck pain. Cardiac: Positive chest pain. No palpitations. Lungs: Positive shortness of breath, positive cough. GI: Positive nausea, no vomiting, no diarrhea, positive constipation, positive abdominal pain : Positive dysuria, frequency, or urgency. Positive hematuria. Musculoskeletal: No joint pain , no joint swelling, no extremity edema. Skin: No rash, no itching. 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 Was a procedure done?: No EKG EKG : Pulse Rate (adult): 77 [place]: Normal Cardiac Rhythm: Paced Block: None Hypertrophy: None ST: Normal Differential Dx Considerations may include: Differential diagnoses considered include acute ischemic coronary syndrome, aortic dissection, cardiac tamponade, mediastinitis, pulmonary embolus, pneumothorax, tension pneumothorax, esophageal rupture, coronary artery vasospasm, myocarditis, pericarditis, pneumonia, pulmonary edema, esophageal tear, pancreatitis, aortic stenosis, dilated cardiomyopathy, hypertrophic cardiomyopathy, mitral valve prolapse, malignancy, pleuritis, pneumomediastinum, primary pulmonary hypertension, cholecystitis, esophageal spasm, esophagus, gastritis, GERD, peptic ulcer disease, costochondritis, fibromyalgia, rib fracture, herpes zoster, radicular syndromes, thoracic outlet syndrome, somatization. X-Ray, Labs, Meds, VS Vital Signs Date Time Temp Pulse Resp B/P (MAP) Pulse Ox O2 Delivery O2 Flow Rate FiO2 04/29/24 03:10 77 04/29/24 02:57 77 04/29/24 02:15 98.6 75 18 101/65 (77) 97 Lab Test 04/29/24 05:36 04/29/24 03:29 04/29/24 02:36 Range/Units Troponin I High Sensitivity Pending 31 33 </=34 ng/L White Blood Count 9.7 4.4-10.8 10^3/uL Red Blood Count 5.06 4.0-5.20 10^6/uL Hemoglobin 14.7 12.2-16.2 g/dL Hematocrit 44.8 36.0-46.0 % Mean Corpuscular Volume 88.7 80.0-100.0 fL Mean Corpuscular Hemoglobin 29.1 28.0-32.0 pg Mean Corpuscular Hemoglobin Concent 32.8 32.0-36.0 g/dL Red Cell Distribution Width 17.7 H 11.8-14.3 % Platelet Count 291 140-450 10^3/uL Mean Platelet Volume 7.9 6.9-10.8 fL Neutrophils (%) (Auto) 53.7 37.0-80.0 % Lymphocytes (%) (Auto) 33.7 10.0-50.0 % Monocytes (%) (Auto) 10.0 0.0-12.0 % Eosinophils (%) (Auto) 1.6 0.0-7.0 % Basophils (%) (Auto) 1.0 0.0-2.0 % Neutrophils # (Auto) 5.2 1.6-8.6 10 ^3/uL Lymphocytes # (Auto) 3.3 0.4-5.4 10 ^3/uL Monocytes # (Auto) 1.0 0-1.3 10 ^3/uL Eosinophils # (Auto) 0.2 0-0.8 10 ^3/uL Basophils # (Auto) 0.1 0-0.2 10 ^3/uL Nucleated Red Blood Cells 0.2 % Sodium Level 141 136-145 mmol/L Potassium Level 4.2 3.5-5.1 mmol/L Chloride Level 104 98-107 mmol/L Carbon Dioxide Level 27 20-31 mmol/L Anion Gap 10 5-15 Blood Urea Nitrogen 29 H 9-23 mg/dL Creatinine 1.52 H 0.550-1.02 mg/dL Glomerular Filtration Rate Calc 35 >90 mL/min BUN/Creatinine Ratio 19.1 10.0-20.0 Serum Glucose 100 74-106 mg/dL Lactic Acid Level 1.2 0.4-2.0 mmol/L Calcium Level 10.8 H 8.7-10.4 mg/dL Total Bilirubin 0.7 0.2-1.0 mg/dL Aspartate Amino Transferase (AST) 18 13-40 U/L Alanine Aminotransferase (ALT) 16 7-40 U/L Alkaline Phosphatase 85 46-116 U/L B-Type Natriuretic Peptide 775.08 0-100 pg/mL Total Protein 7.6 5.7-8.2 g/dL Albumin 5.2 H 3.2-4.8 g/dL Lipase 37 12-53 U/L Current Medications Medications (Trade) Dose Ordered Sig/Asha Route Start Time Stop Time Status Last Admin Phenazopyridine HCl (Pyridium Tablet) 200 mg ONCE ONCE PO 04/29/24 03:30 04/29/24 03:31 DC 04/29/24 04:00 Time of 1ST Reevaluation: 03:04 Reevaluation 1ST: Unchanged Patient Education/Counseling: Diagnosis, Treatment, Prognosis Family Education/Counseling: No Family Present Departure 1 Departure Time of Disposition: 05:51 Impression: Primary Impression: Chest pain Additional Impression: Abdominal pain Disposition: 30 STILL A PATIENT Condition: Stable Comments 78-year-old wheelchair-bound female with past medical history of COPD on 4 L oxygen, CHF, CKD, hypertension hyperlipidemia, CAD with status post PTCA, CABG, status post AICD, Parkinson disease presents to the emergency department with chest pain generalized abdominal pain. She was seen in the emergency department yesterday evening for abdominal pain as well and discharge. At this time patient is stable, nontoxic appearing, no peritoneal signs on exam. Vital signs stable. EKG independently interpreted shows atrial paced rhythm with no STEMI. Lab remarkable for elevated NT proBNP, creatinine of 1.5, BUN 29. Signed out to oncoming provider pending CT abdomen and pelvis and chest x-ray results and disposition. I reviewed the following notes from the pt's past medical encounters: Most recent hospitalization in March of this year at this facility. The following tests were ordered, and results were reviewed by me: Labs, EKG. Additional information was gathered from interviewing the following independent historians: Nursing staff familiar with patient from multiple previous ER visit. Critical Care Note Critical Care Time?: No Stability Stability form required: No Heart Score Heart Score: Heart Score Response (Comments) Value History Slightly Suspicious 0 EKG Normal 0 Age >65 2 Risk Factors >3 or Hx ASHD 2 Troponin Normal limit 0 Total 4 I personally scribed for TAMIKO HASSAN MD ([email or web address]) on 04/29/24 at 02:51. Electronically submitted by Frederic Brady ([email or web address]). I personally scribed for TAMIKO HASSAN MD ([email or web address]) on 04/29/24 at 03:10. Electronically submitted by Frederic Brady ([email or web address]). TAMIKO HASSAN MD Apr 29, 2024 02:51
[2024-04-29 02:59] LABS: Basophils # (auto) 0.1 10 ^3/uL (0-0.2); Eosinophils # (auto) 0.2 10 ^3/uL (0-0.8); Eosinophils % (auto) 1.6 % (0.0-7.0); Hematocrit 44.8 % (36.0-46.0); Hemoglobin 14.7 g/dL (12.2-16.2); Lymphocytes # (auto) 3.3 10 ^3/uL (0.4-5.4); Lymphocytes % (auto) 33.7 % (10.0-50.0); Mean Corpuscular Hemoglobin 29.1 pg (28.0-32.0); Mean Corpuscular Hgb Conc. 32.8 g/dL (32.0-36.0); Mean Corpuscular Volume 88.7 fL (80.0-100.0); Neutrophils # (auto) 5.2 10 ^3/uL (1.6-8.6); Neutrophils % (auto) 53.7 % (37.0-80.0); Nucleated Red Blood Cells % 0.2 %; Platelet Count (auto) 291 10^3/uL (140-450); Red Blood Cells 5.06 10^6/uL (4.0-5.20); Red Cell Distribution Width 17.7 % (11.8-14.3); White Blood Cell 9.7 10^3/uL (4.4-10.8)
[2024-04-29 03:04] LABS: Alanine Aminotransferase 16 U/L (7-40); Albumin 5.2 g/dL (3.2-4.8); Alkaline Phosphatase 85 U/L (46-116); Anion Gap 10 (5-15); Aspartate Aminotransferase 18 U/L (13-40); BUN/Creatinine Ratio 19.1 (10.0-20.0); Bilirubin, Total 0.7 mg/dL (0.2-1.0); Blood Urea Nitrogen 29 mg/dL (9-23); Calcium 10.8 mg/dL (8.7-10.4); Carbon Dioxide 27 mmol/L (20-31); Chloride 104 mmol/L (98-107); Glucose 100 mg/dL (74-106); Lipase 37 U/L (12-53); Potassium 4.2 mmol/L (3.5-5.1); Sodium 141 mmol/L (136-145)
[2024-04-29 03:05] LABS: Total Protein 7.6 g/dL (5.7-8.2)
[2024-04-29] MEDS: PHENAZOPYRIDINE HCL 100 MG TAB PO ONE (04:00)
[2024-04-29] MEDS: SODIUM CHLORIDE 0.9% 500 ML IV ONE (05:30)
[2024-04-29] MEDS: IOHEXOL 300 MG/ML 100ML BOTTLE IJ ONE (05:37)
--- NOTE | 2024-04-29 05:53 | DVH ---
Exam: CT CT AB PEL WO CON-NO ORAL OR IV History: ABD PAIN Comparison Study: CT of the abdomen pelvis performed on 03/20/2024. Technique: Multidetector spiral CT of the abdomen and pelvis was performed from lung bases to pubic s ymphysis. Imaging was performed without intravenous contrast. Coronal and sagittal multiplanar refor mats were obtained from the axial data set by the technologist. Radiation Dose : 1. Abdomen/Pelvis: CTDIvol 13.8 mGy, DLP 663.2 mGy*cm. Findings: Evaluation of vasculature and solid organs is limited due to lack of intravenous contrast use. Lung Bases: Lung bases are clear. Cardiomegaly. No pericardial effusion. Coronary artery calcificati ons. Liver: The liver is normal in size. No focal lesions. Gallbladder and Biliary Tree: The gallbladder is unremarkable. No intrahepatic or extrahepatic bilia ry ductal dilatation. Spleen: Unremarkable Pancreas: The pancreas is grossly unremarkable. Adrenal Glands: Unremarkable Kidneys: Punctate left nephrolithiasis. Right kidney is unremarkable. GI tract: The stomach is grossly normal in appearance. No evidence of small bowel wall thickening or abnormal dilatation to suggest bowel obstruction. Sigmoid colon diverticulosis without acute diverti culitis. The appendix is not visualized, however no inflammatory changes in the right lower quadrant to suggest acute appendicitis. Peritoneum/mesentery/retroperitoneum. No evidence of free intraperitoneal air. No ascites. No evidenc e of suspicious lymphadenopathy. Abdominal Wall: Unremarkable. Vasculature: The visualized abdominal aorta is normal in size and caliber. Evaluation of abdominal a nd pelvic vessels is limited due to lack of intravenous contrast. Urinary Bladder: Grossly unremarkable for degree of distention. Pelvic Organs: Unremarkable Musculoskeletal: No aggressive focal bony lesions, acute fractures or dislocation. Multilevel lumbar spondylosis. Soft tissues: Bilateral fat containing inguinal hernias. There is a metallic density in the left ingu inal canal. Bilateral calcified granulomas. IMPRESSION: 1. No acute abdominal or pelvic findings. 2. Sigmoid diverticulosis without acute diverticulitis.
--- NOTE | 2024-04-29 06:27 | DVH ---
CHEST RADIOGRAPH Indication: Chest pain Technique: Single frontal view of the chest was obtained Comparison: XY CHEST PORTABLE on DOS: 03/19/24 FINDINGS: Lines and Tubes: AICD/ pacemaker noted. Catheter overlying the neck. Lungs: No focal consolidation. Pleura: Blunting of the left costophrenic sulcus suggesting small left pleural effusion. Right lung i s clear. No pneumothorax. Cardiomediastinal contours: The heart is normal in size. Bones: No acute osseous abnormality. IMPRESSION: 1. There is a catheter overlying the neck. Please correlate clinically. 2. Small left pleural effusion.
[2024-04-29] MEDS: ASPirin 81 mg TAB PO ONE (06:47)
[2024-04-29] MEDS ORDERED: MORPHINE SULFATE INJ 2 MG/ml SYRG IV PRN (08:15)
[2024-04-29] MEDS ORDERED: ACETAMINOPHEN 325 MG TAB PO PRN (08:15)
[2024-04-29] MEDS ORDERED: DOCUSATE SOD 100 MG CAP PO PRN (08:15)
[2024-04-29] MEDS ORDERED: ONDANSETRON HCL 4 MG/2 ML VIAL IV PRN (08:15)
[2024-04-29] MEDS ORDERED: HYDROcodone-ACET 5/325MG TAB PO PRN (08:15)
[2024-04-29] MEDS ORDERED: NITROGLYCERIN 0.4 MG SL TAB SL PRN (08:15)
[2024-04-29] MEDS ORDERED: ALBUTEROL SULF 2.5 MG/0.5ML(0.5%) NEB SOLN NEB PRN (08:30)
[2024-04-29] MEDS ORDERED: IPRATROPIUM BROM 0.5 MG/2.5ML INH SOL NEB PRN (08:30)
[2024-04-29] MEDS ORDERED: POLYETHYLENE GLYCOL 17 GM PWDR PO PRN (08:30)
--- NOTE | 2024-04-29 08:39 | DVHHP2 ---
History of Present Illness Reason for Visit: Chest pain, abdominal pain History of Present Illness Niya Scott, is a 78-year-old wheelchair-bound female with past medical history of COPD on 4 L oxygen, CHF, CKD, hypertension hyperlipidemia, chronic UTI's, CAD with status post PTCA, CABG, status post AICD, Parkinson disease presented to the ED with a chief complaint of chest pain, abdominal pain, shortness of breath and dysuria. Patient states her pain started yesterday. Cardiovascular: CAD, CHF, HTN, hyperipidemia Pulmonary: COPD Renal/: Chronic renal insuff, UTI, Other (H/O Kidney stones) Past Surgical History: Appendectomy, CABG, Hysterectomy, Other (PTCA), 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 Family History: None Smoke: No ALCOHOL: none Drugs: None Lives: Shelter Domestic Violence: Neg Review of Systems Constitutional: No: Fever, Chills, Sweats, Weakness, Malaise, Other Eyes: No: Pain, Vision change, Conjunctivae inflammation, Eyelid inflammation, Other, Redness ENT: No: Ear pain, Ear discharge, Nose pain, Nose discharge, Nose congestion, Mouth pain, Mouth swelling, Throat pain, Throat swelling, Other Respiratory: Shortness of breath; No: Cough, Dry, SOB with excertion, Wheezing, Hemoptysis, Pleuritic Pain, Sputum, Wheezing, Other Cardiovascular: Chest Pain; No: Palpitations, Orthopnea, Paroxysmal Noc. Dyspnea, Edema, Lt Headedness, Other Gastrointestinal: Abdominal Pain; No: Nausea, Vomiting, Diarrhea, Constipation, Melena, Hematochezia, Other Genitourinary: No Dysuria, No Frequency, No Incontinence, No Hematuria, No Retention, No Other Musculoskeletal: No: other, neck pain, shoulder pain, arm pain, back pain, hand pain, leg pain, foot pain Skin: No: Rash, Lesions, Jaundice, Bruising, Other Neurological: No: Weakness, Numbness, Incoordination, Change in speech, Confusion, Seizures, Other Allergies: Coded Allergies: Ceftriaxone (Verified Allergy, Intermediate, generalized rash, 11/08/22) CANT HOOKERCARLENE MEJIA Codeine (Verified Allergy, Unknown, 09/01/20) Hydrocodone (Verified Allergy, Unknown, rash, 05/18/23) tylenol is okay per patient Exam Vital Signs Vital Signs Date Time Temp Pulse Resp B/P (MAP) Pulse Ox O2 Delivery O2 Flow Rate FiO2 04/29/24 07:32 98.7 74 18 150/89 (109) 95 98.7 General Appearance: Alert, Oriented X3, Cooperative, No acute distress HEENT: Atraumatic, PERRLA Respiratory: Clear to auscultation, Normal air movement Cardiovascular: Regular rate, Normal S1, Normal S2, No murmurs Abdominal: Normal bowel sounds, Soft, Other (C/O pain) Extremities: No clubbing, No cyanosis, No edema, Normal pulses Skin: No rashes, No breakdown, No significant lesion Neuro: Normal speech, Strength at 5/5 X4 ext, Other (Wheel chair bound. ) Psych/Mental Status: Mental status NL, Mood NL Labs/Xrays Labs Test 04/29/24 05:36 04/29/24 02:36 Range/Units Troponin I High Sensitivity 30 </=34 ng/L White Blood Count 9.7 4.4-10.8 10^3/uL Red Blood Count 5.06 4.0-5.20 10^6/uL Hemoglobin 14.7 12.2-16.2 g/dL Hematocrit 44.8 36.0-46.0 % Mean Corpuscular Volume 88.7 80.0-100.0 fL Mean Corpuscular Hemoglobin 29.1 28.0-32.0 pg Mean Corpuscular Hemoglobin Concent 32.8 32.0-36.0 g/dL Red Cell Distribution Width 17.7 H 11.8-14.3 % Platelet Count 291 140-450 10^3/uL Mean Platelet Volume 7.9 6.9-10.8 fL Neutrophils (%) (Auto) 53.7 37.0-80.0 % Lymphocytes (%) (Auto) 33.7 10.0-50.0 % Monocytes (%) (Auto) 10.0 0.0-12.0 % Eosinophils (%) (Auto) 1.6 0.0-7.0 % Basophils (%) (Auto) 1.0 0.0-2.0 % Neutrophils # (Auto) 5.2 1.6-8.6 10 ^3/uL Lymphocytes # (Auto) 3.3 0.4-5.4 10 ^3/uL Monocytes # (Auto) 1.0 0-1.3 10 ^3/uL Eosinophils # (Auto) 0.2 0-0.8 10 ^3/uL Basophils # (Auto) 0.1 0-0.2 10 ^3/uL Nucleated Red Blood Cells 0.2 % Sodium Level 141 136-145 mmol/L Potassium Level 4.2 3.5-5.1 mmol/L Chloride Level 104 98-107 mmol/L Carbon Dioxide Level 27 20-31 mmol/L Anion Gap 10 5-15 Blood Urea Nitrogen 29 H 9-23 mg/dL Creatinine 1.52 H 0.550-1.02 mg/dL Glomerular Filtration Rate Calc 35 >90 mL/min BUN/Creatinine Ratio 19.1 10.0-20.0 Serum Glucose 100 74-106 mg/dL Lactic Acid Level 1.2 0.4-2.0 mmol/L Calcium Level 10.8 H 8.7-10.4 mg/dL Total Bilirubin 0.7 0.2-1.0 mg/dL Aspartate Amino Transferase (AST) 18 13-40 U/L Alanine Aminotransferase (ALT) 16 7-40 U/L Alkaline Phosphatase 85 46-116 U/L B-Type Natriuretic Peptide 775.08 0-100 pg/mL Total Protein 7.6 5.7-8.2 g/dL Albumin 5.2 H 3.2-4.8 g/dL Lipase 37 12-53 U/L CHEST RADIOGRAPH FINDINGS: Lines and Tubes: AICD/ pacemaker noted. Catheter overlying the neck. Lungs: No focal consolidation. Pleura: Blunting of the left costophrenic sulcus suggesting small left pleural effusion. Right lung is clear. No pneumothorax. Cardiomediastinal contours: The heart is normal in size. Bones: No acute osseous abnormality. IMPRESSION: 1. There is a catheter overlying the neck. Please correlate clinically. 2. Small left pleural effusion. Exam: CT CT AB PEL WO CON-NO ORAL OR IV Findings: Evaluation of vasculature and solid organs is limited due to lack of intravenous contrast use. Lung Bases: Lung bases are clear. Cardiomegaly. No pericardial effusion. Coronary artery calcifications. Liver: The liver is normal in size. No focal lesions. Gallbladder and Biliary Tree: The gallbladder is unremarkable. No intrahepatic or extrahepatic biliary ductal dilatation. Spleen: Unremarkable Pancreas: The pancreas is grossly unremarkable. Adrenal Glands: Unremarkable Kidneys: Punctate left nephrolithiasis. Right kidney is unremarkable. GI tract: The stomach is grossly normal in appearance. No evidence of small bowel wall thickening or abnormal dilatation to suggest bowel obstruction. Sigmoid colon diverticulosis without acute diverticulitis. The appendix is not visualized, however no inflammatory changes in the right lower quadrant to suggest acute appendicitis. Peritoneum/mesentery/retroperitoneum. No evidence of free intraperitoneal air. No ascites. No evidence of suspicious lymphadenopathy. Abdominal Wall: Unremarkable. Vasculature: The visualized abdominal aorta is normal in size and caliber. Evaluation of abdominal and pelvic vessels is limited due to lack of intravenous contrast. Urinary Bladder: Grossly unremarkable for degree of distention. Pelvic Organs: Unremarkable Musculoskeletal: No aggressive focal bony lesions, acute fractures or dislocation. Multilevel lumbar spondylosis. Soft tissues: Bilateral fat containing inguinal hernias. There is a metallic density in the left inguinal canal. Bilateral calcified granulomas. IMPRESSION: 1. No acute abdominal or pelvic findings. 2. Sigmoid diverticulosis without acute diverticulitis. Assessment/Plan Assessment/Plan Assessment: [id number] kidney injury, Pleural effusion, Abdominal pain, Diverticulosis, Shortness of breath, Hypertension, Hyperlipidemia, CHF, COPD, Plan: Admit to Tele, IV Hydration, Strict I&O's, Consider nephrology consult if kidney function does not improve, Breathing treatments PRN, Antiemetics, Fall risk, Home medications reconciled, Plan discussed with: Patient My Orders Orders - SAROJ GRIFFIN Procedure Category Date Status Time Admit ADMIT 04/29/24 Verified 08:12 Code Status CODE 04/29/24 Verified 08:12 Sodium Chloride Lock PHA 04/29/24 Verified (Saline Lock Ns) 14:00 Hydrocodone-Acet PHA 04/29/24 Verified 5/325mg Tab ([place] 08:15 Date of Service: Apr 29, 2024 Billing Provider: SAROJ GRIFFIN Common Visit Codes: [id number] INP/OBS CARE (MOD) SAROJ GRIFFIN Apr 29, 2024 08:39
[2024-04-29] MEDS: FUROSEMIDE 40 MG TAB PO SCH (10:00)
[2024-04-29] MEDS: SACUBITRIL-VALSARTAN 24mg/26mg TAB PO SCH (10:00)
[2024-04-29] MEDS: CLOPIDOGREL BISULFATE 75 MG TAB PO SCH (10:00)
[2024-04-29] MEDS: CARVEDILOL 3.125 MG TAB PO SCH (10:00)
[2024-04-29] MEDS: CHOLECALCIFEROL (VITD3) 1,000UNIT=25mCg TAB PO SCH (10:00)
[2024-04-29] MEDS: FLUoxetine HCL 20 MG CAP PO SCH (10:00)
[2024-04-29] MEDS: ASPirin-EC 81 mg tab PO SCH (10:00)
[2024-04-29] MEDS: RANOLAZINE ER 500 MG TAB PO SCH (10:00)
[2024-04-29] MEDS: ASCORBIC ACID 500 MG TAB PO SCH (10:00)
[2024-04-29] MEDS ORDERED: oxyCODONE HCL 5MG TAB PO PRN (10:15)
--- NOTE | 2024-04-29 10:41 | ECG ---
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
[2024-04-29] MEDS ORDERED: DULO-141 PO (11:09)
[2024-04-29 11:37] VITALS: TEMP 97.7; O2SAT 100
[2024-04-29] MEDS: POLYETHYLENE GLYCOL 17 GM PWDR PO ONE (11:39)
[2024-04-29] MEDS: DULoxetine HCL 30 MG CAP PO ONE (11:39)
[2024-04-29 11:56] VITALS: RESP 18
[2024-04-29] MEDS: ONDANSETRON HCL 4 MG/2 ML VIAL IV ONE (12:13)
[2024-04-29] MEDS: MORPHINE SULFATE INJ 2 MG/ml SYRG IV ONE (12:17)
[2024-04-29 12:47] VITALS: BP 126/56; PULSE 70; RESP 16
[2024-04-29] MEDS ORDERED: SODIUM CHLOR 0.9% PF (SALINE LOCK) 10ML VIAL/SYR IV SCH (14:00)
[2024-04-29] MEDS ORDERED: ACETAMINOPHEN 325 MG TAB PO SCH (14:00)
--- NOTE | 2024-04-29 16:45 | DVHDS2 ---
Discharge Summary Date of Admission Apr 29, 2024 at 08:12 Date of Discharge: Apr 29, 2024 Labs/Diagnostic Data: Laboratory Results Test 04/29/24 05:36 04/29/24 02:36 Troponin I High Sensitivity 30 ng/L (</=34) White Blood Count 9.7 10^3/uL (4.4-10.8) Red Blood Count 5.06 10^6/uL (4.0-5.20) Hemoglobin 14.7 g/dL (12.2-16.2) Hematocrit 44.8 % (36.0-46.0) Mean Corpuscular Volume 88.7 fL (80.0-100.0) Mean Corpuscular Hemoglobin 29.1 pg (28.0-32.0) Mean Corpuscular Hemoglobin Concent 32.8 g/dL (32.0-36.0) Red Cell Distribution Width 17.7 % (11.8-14.3) Platelet Count 291 10^3/uL (140-450) Mean Platelet Volume 7.9 fL (6.9-10.8) Neutrophils (%) (Auto) 53.7 % (37.0-80.0) Lymphocytes (%) (Auto) 33.7 % (10.0-50.0) Monocytes (%) (Auto) 10.0 % (0.0-12.0) Eosinophils (%) (Auto) 1.6 % (0.0-7.0) Basophils (%) (Auto) 1.0 % (0.0-2.0) Neutrophils # (Auto) 5.2 10 ^3/uL (1.6-8.6) Lymphocytes # (Auto) 3.3 10 ^3/uL (0.4-5.4) Monocytes # (Auto) 1.0 10 ^3/uL (0-1.3) Eosinophils # (Auto) 0.2 10 ^3/uL (0-0.8) Basophils # (Auto) 0.1 10 ^3/uL (0-0.2) Nucleated Red Blood Cells 0.2 % Sodium Level 141 mmol/L (136-145) Potassium Level 4.2 mmol/L (3.5-5.1) Chloride Level 104 mmol/L (98-107) Carbon Dioxide Level 27 mmol/L (20-31) Anion Gap 10 (5-15) Blood Urea Nitrogen 29 mg/dL (9-23) Creatinine 1.52 mg/dL (0.550-1.02) Glomerular Filtration Rate Calc 35 mL/min (>90) BUN/Creatinine Ratio 19.1 (10.0-20.0) Serum Glucose 100 mg/dL (74-106) Lactic Acid Level 1.2 mmol/L (0.4-2.0) Calcium Level 10.8 mg/dL (8.7-10.4) Total Bilirubin 0.7 mg/dL (0.2-1.0) Aspartate Amino Transferase (AST) 18 U/L (13-40) Alanine Aminotransferase (ALT) 16 U/L (7-40) Alkaline Phosphatase 85 U/L (46-116) B-Type Natriuretic Peptide 775.08 pg/mL (0-100) Total Protein 7.6 g/dL (5.7-8.2) Albumin 5.2 g/dL (3.2-4.8) Lipase 37 U/L (12-53) Other Laboratory Tests 04/29/24 02:36 Brief Hx & Hospital Course: 78-year-old female admitted for LENORA. Chart reviewed, patient with multiple admissions for same, with chronic stable conditions. Patient we will benefit from hospice however seems like patient has use out all her hospice resources. Discussed with patient to follow up with palliative care. Stable to discharge back to nursing facility More than 30 minutes spent in advanced care planning, including discussing code status, medical decision maker, goals of care and disposition planning. Patient wants to be DNR DNI, goals of care comfort, medical decision maker Marcie Gutierrez [phone] Condition at Discharge: Fair Final Diagnosis/Problems List chronic pain chronic systolic heart failure chronic kidney disease stage 3 chornic hypoxic respiratory failure Discharge Disposition: Care Home Facility Discharge Instruct/Medications Diet: Consistent carbohydrate, Cardiac 2g Na,low cholest, Renal Activity: No Restrictions, As Tolerated Follow Up/Referral: follow up with palliative care / hospice, [facility] cardiology, pulmonary, nephrology, urology Medications: cymbalta 30mg daily tylenol 650 three times daily rest of home meds 56 Discharge Statement: "Patient was advised to return to the ER or call 911 if any headaches, dizziness, shortness of breath, chest pain, abdominal pain, bleeding, fevers, or worsening of medical condition. Patient was counseled about treatment plan, medications, possible side effects, patientverbalized understanding. All questions were answered to the best of my ability. 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
[2024-04-29] MEDS ORDERED: TAMSULOSIN HYDROCHLORIDE 0.4 MG CAP PO SCH (18:00)
[2024-04-29] MEDS ORDERED: ATORVASTATIN 20 MG TAB PO SCH (22:00)
[2024-04-30] MEDS ORDERED: DULoxetine HCL 30 MG CAP PO SCH (10:00)
[2024-04-30] MEDS ORDERED: POLYETHYLENE GLYCOL 17 GM PWDR PO SCH (10:00)
== END 2024-04-29 12:58 | DRG 683 ==
LOC: ER 01:51 → TELE 08:12
PROVIDERS: ADMIT Nurse Practitioner Family; ATTEND Student in an Organized Health Care Education/Training Program
DX: N17.9 Acute kidney failure, unspecified (principal); I13.0 Hypertensive heart and chronic kidney disease with heart failure and stage 1 through stage 4 chronic kidney disease, or unspecified chronic kidney disease; I50.22 Chronic systolic (congestive) heart failure; J96.11 Chronic respiratory failure with hypoxia; K57.30 Diverticulosis of large intestine without perforation or abscess without bleeding; I25.10 Atherosclerotic heart disease of native coronary artery without angina pectoris; Z66 Do not resuscitate; G20.A1 Parkinson's disease without dyskinesia, without mention of fluctuations; E78.5 Hyperlipidemia, unspecified; F41.9 Anxiety disorder, unspecified; F32.A Depression, unspecified; K21.9 Gastro-esophageal reflux disease without esophagitis; M10.9 Gout, unspecified; J44.89 Other specified chronic obstructive pulmonary disease; N18.30 Chronic kidney disease, stage 3 unspecified; G89.29 Other chronic pain; Z95.1 Presence of aortocoronary bypass graft; Z98.61 Coronary angioplasty status; Z95.810 Presence of automatic (implantable) cardiac defibrillator; Z99.3 Dependence on wheelchair; Z88.5 Allergy status to narcotic agent; Z90.710 Acquired absence of both cervix and uterus; Z90.49 Acquired absence of other specified parts of digestive tract; Z87.442 Personal history of urinary calculi; Z83.3 Family history of diabetes mellitus; Z82.49 Family history of ischemic heart disease and other diseases of the circulatory system; Z99.81 Dependence on supplemental oxygen
CPT/HCPCS: 36415; 71045; 74176; 80053; 83605; 83690; 83880; 84484; 85025; 93005; 96360; G0378; J2405

== ENCOUNTER 2024-05-03 14:03 | Inpatient (IN) | payer OTHER, MEDICAID ==
[~2024-05-03] VITALS: Ht 162.6 cm; Wt 72.1 kg
[2024-05-03] MEDS: DOXYCYCLINE 100 MG TAB/CAP PO SCH (10:00)
[~2024-05-03 14:03] MED LIST changes: -AZIT-43 PO; -CLON-853 PO; +DULO-141 PO; -NITR-87 PO; -PRED20TA2 PO
--- NOTE | 2024-05-03 14:13 | ECG ---
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
--- NOTE | 2024-05-03 14:23 | ED.PDOC ---
HPI Comments 78 year old female ELTON presents to the ED with chief complaint of chest pain. Patient reports that she feels palpitations causing her pacemaker to initiate pacing, causing her to experience left side chest pain with associated radiation to the left arm and neck along with nausea. Patient relays that her pain woke her up this morning. EMS states patient had received 324mg of Aspirin on route with no relief in chest pain noted. Patient notes she takes Percocet q4 hours, needing a dose soon. Patient denies any cough, dizziness, chills, SOB, headache, or blurred vision. She does report severe burning with urination and expresses concern that she has a recurrent bladder infection. Chief Complaint: Chest Pain Time Seen by MD: 14:18 Primary Care Provider: HORTENCIA Reviewed Notes: Nurses Notes, Cell Attendant Notes, Medications, Allergies Allergies: Coded Allergies: Ceftriaxone (Verified Allergy, Intermediate, generalized rash, 11/08/22) CUTTER DOWNCARLENE MEJIA Codeine (Verified Allergy, Unknown, 09/01/20) Hydrocodone (Verified Allergy, Unknown, rash, 05/18/23) tylenol is okay per patient Home Meds Active Scripts Duloxetine Hydrochloride (Duloxetine Hydrochloride) 30 Mg Cap, 30 MG PO DAILY for 30 Days, #30 CAP Prov:WINSOME GOMEZ MD 04/29/24 Phenazopyridine HCl (Phenazopyridine Hydrochlo) 200 Mg Tab, 200 MG PO TID for 3 Days, #9 TAB Prov:NIRALI MARTINO RESIDENT 04/10/24 Primidone (MYSOLINE TABLET) 50 Mg Tb, 25 MG PO HS for 30 Days, #15 TAB Prov:NIRALI MARTINO RESIDENT 04/10/24 Clopidogrel Bisulfate (CLOPIDOGREL) 75 Mg Tab, 75 MG PO DAILY for 30 Days, #30 TAB 5 Refills Prov:YENNY FRAIRE MD 11/26/23 Tamsulosin Hcl (Flomax) 0.4 Mg Cap, 0.4 MG PO QPM for 30 Days, #30 CAP Prov:BHARAT MICHELLE RESIDENT 10/18/23 Ranolazine (Ranolazine ER) 500 Mg Tab, 500 MG PO BID for 30 Days, #60 TAB 2 Refills Prov:MAGAN RUSS 09/16/23 Sacubitril-Valsartan (Entresto 24-26 mg) 1 Tab Tab, 1 TAB PO BID for 30 Days, #60 TAB 3 Refills Prov:LEANNA BROWN DO 05/22/23 Reported Medications Oxycodone W/ Acetaminophen (Percocet 5/325MG) 1 Tab Tb, 1 TAB PO QID, #120 TAB 01/29/24 Polyethylene Glycol 3350 (Miralax) 17 Gm Pow, 17 GM PO DAILY PRN for FOR CONSTIPATION for 30 Days, #30 01/28/24 Lactobacillus (ACIDOPHILUS) Cap, 1 CAP PO BID for 30 Days, #60 09/05/23 Ipratropium-Albuterol (Ipratropium Ford/Albut) 1 Yuli Yuli, 1 VIAL NEB Q6HPRN PRN for SHORTNESS OF BREATH for 13 Days, #180 09/05/23 Fluticasone-Salmeterol (Fluticasone Propionate/SA 250-50 Mcg/Dose) 1 Aer Aer, 1 PUFF INH BID for 30 Days, #60 09/05/23 Albuterol Sulfate (Albuterol Sulfate Hfa) 108 Mcg/Act Aer, 2 PUFF INH Q4HPRN PRN for dyspnea for 17 Days, #18 09/05/23 Cholecalciferol (VITAMIN D3) 2,000 Unit Tab, 1 TAB PO BID for 30 Days, #60 08/28/23 Multiple Vitamin (Tab-A-Radha) Tab, 1 TAB PO DAILY for 30 Days, #30 08/28/23 Aspirin (Aspir-Low) 81 Mg Tab, 1 TAB PO DAILY for 30 Days, #30 08/28/23 Furosemide (Furosemide) 40 Mg Tab, 1 TAB PO DAILY 08/28/23 Ascorbic Acid (VITAMIN C TABLET) 500 Mg Tb, 1 TAB PO BID for 30 Days, #60 05/18/23 Pantoprazole Sodium Sesquihydr (Pantoprazole Sodium) 40 Mg Tab, 1 TAB PO DAILY 05/18/23 Carvedilol (Carvedilol) 3.125 Mg Tab, 1 TAB PO BID for 30 Days, #60 01/02/23 Atorvastatin Calcium (Lipitor) 20 Mg Tab, 1 TAB PO HS for 30 Days, #30 12/30/20 Fluoxetine HCl (Pmdd) (Fluoxetine HCl) 20 Mg Tab, 20 MG PO DAILY, TAB 05/30/20 Discontinued Reported Medications Clonazepam (Clonazepam) 1 Mg Tab, 0.5 MG PO TID PRN for ANXIETY, TAB 09/05/23 Discontinued Scripts Nitrofurantoin Monohydrate Mac (Macrobid) 100 Mg Cap, 100 MG PO BID for 7 Days, #14 CAP Prov:WILMER LUCERO MD 04/28/24 Prednisone (Prednisone) 20 Mg Tab, 40 MG PO DAILY for 3 Days, #6 TAB Prov:NIRALI MARTINO RESIDENT 03/23/24 Azithromycin (Azithromycin) 250 Mg Tab, 500 MG PO DAILY for 3 Days, #6 TAB Prov:NIRALI MARTINO RESIDENT 03/23/24 Information Source: Patient, Emergency Med Personnel Mode of Arrival: EMS Severity: Moderate Timing: Hours Duration: Since onset Prehospital treatment: ASA Location: Chest (L) Radiation: Neck, Arm (L) Quality: Aching Onset: While Asleep Cardiac Risk Factors: Hyperlipidemia, HTN, Diabetes PE Risk Factors: None Past Medical History PAST MEDICAL HISTORY: Anemia, Anxiety, Asthma, CAD, CHF, COPD, Depression, GERD, Gout, High Lipids, HTN, Kidney Stones, PR, UTI'S Surgical History: Appendectomy, CABG, Hysterectomy, Pacemaker, PTCA, 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 Family History Family History: Reviewed,noncontributory to illness, Family hx of DM, Family hx of heart gabe Social History Smoker: Non-Smoker Alcohol: Denies ETOH Use Drugs: Denies Drug Use Lives In: Home Constitutional: denies: chills, diaphoresis, fatigue, fever, malaise, sweats, weakness, others EENTM: denies: blurred vision, double vision, ear bleeding, ear discharge, ear drainage, ear pain, ear ringing, eye pain, eye redness, hearing loss, mouth pain, mouth swelling, nasal discharge, nose bleeding, nose congestion, nose pain, photophobia, tearing, throat pain, throat swelling, voice changes, others Respiratory: denies: cough, hemoptysis, orthopnea, SOB at rest, shortness of breath, SOB with excertion, stridor, wheezing, others Cardiovascular: reports: chest pain, left arm pain; denies: dizzy spells, diaphoresis, Dyspnea on exertion, edema, irregular heart beat, lightheadedness, palpitations, PND, syncope, others Gastrointestinal: reports: nausea; denies: abdomen distended, abdominal pain, blood streaked bowels, constipated, diarrhea, dysphagia, difficulty swallowing, hematemesis, melena, poor appetite, poor fluid intake, rectal bleeding, rectal pain, vomiting, others Genitourinary: denies: abnormal vagina bleeding, burning, dyspareunia, dysuria, flank pain, frequency, hematuria, incontinence, pain, , vagina discharge, urgency, others Neurological: denies: dizziness, fainting, headache, left sided numbness, left sided weakness, numbness, paresthesia, pre-existing deficit, right sided numbness, right sided weakness, seizure, speech problems, tingling, tremors, weakness, others Musculoskeletal: denies: back pain, gout, joint pain, joint swelling, muscle pain, muscle stiffness, neck pain, others Integumetry: denies: bruises, change in color, change in hair/nails, dryness, laceration, lesions, lumps, rash, wounds, others Allergic/Immunocompromised: denies: Difficulty Healing, Frequent Infections, Hives, Itching, others Hematologic/Lymphatic: denies: anemia, blood clots, easy bleeding, easy bruising, swollen glands, others Endocrine: denies: excessive hunger, excessive sweating, excessive thirst, excessive urination, flushing, intolerance to cold, intolerance to heat, unexplained weight gain, unexplained weight loss, others Psychiatric: denies: anxiety, bipolar disorder, depression, hopeless, panic disorder, schizophrenia, sleepless, suicidal, others All Other Systems: Reviewed and Negative Physical Exam General Appearance: Mild Distress HEENT: Other (Will symmetric, no facial asymmetry, moist mucous membranes, p ursed lipped breathing) Neck: Full Range of Motion, Normal Inspection Respiratory: Decreased Breath Sounds, No Accessory Muscle Use, No Respiratory Distress Cardiovascular: No Edema, No JVD, Regular Rate/Rhythm Breast Exam: Deferred Gastrointestinal: Non Tender, Soft Genitalia: Deferred Pelvic: Deferred Rectal: Deferred Extremities: Normal inspection, Normal range of motion, Non-tender, No pedal edema Musculoskeletal : Apperance: Normal Neurologic: Alert (Oriented x4), Normal Affect, Normal Mood, Other (Moves all extremities. No gross focal deficit.) Cerebellar Function: NOT DONE Reflexes: NOT DONE Skin: Dry, Normal Color, Warm Lymphatic: NOT DONE EKG EKG : Comments Atrial sensed ventricular paced rhythm, rate 82 Was a procedure done? Was a procedure done?: No CP Differential Dx Differential Diagnosis: Angina, Anxiety / Panic Attack, Heart Failure, PR, Pulmonary Embolus Differential Diagnosis: CHF Differential Diagnosis: Aortic dissection, Chest Wall Pain, Esophageal reflux/spasm, Gastritis, Pericarditis, Pneumonia X-Ray, Labs, Meds, VS Vital Signs Date Time Temp Pulse Resp B/P (MAP) Pulse Ox O2 Delivery O2 Flow Rate FiO2 05/03/24 15:16 80 18 98 Nasal Cannula* 2 28 05/03/24 15:16 98.0 80 18 135/84 (101) 98 98.0 05/03/24 14:10 97.6 80 24 153/93 (113) 94 05/03/24 14:08 82 Lab Test 05/03/24 16:08 05/03/24 14:39 Range/Units Lactic Acid Level Pending Troponin I High Sensitivity Pending 29 </=34 ng/L White Blood Count 7.1 # 4.4-10.8 10^3/uL Red Blood Count 4.71 4.0-5.20 10^6/uL Hemoglobin 14.0 12.2-16.2 g/dL Hematocrit 41.6 36.0-46.0 % Mean Corpuscular Volume 88.3 80.0-100.0 fL Mean Corpuscular Hemoglobin 29.7 28.0-32.0 pg Mean Corpuscular Hemoglobin Concent 33.7 32.0-36.0 g/dL Red Cell Distribution Width 18.3 H 11.8-14.3 % Platelet Count 288 140-450 10^3/uL Mean Platelet Volume 8.1 6.9-10.8 fL Neutrophils (%) (Auto) 60.3 37.0-80.0 % Lymphocytes (%) (Auto) 25.0 10.0-50.0 % Monocytes (%) (Auto) 10.3 0.0-12.0 % Eosinophils (%) (Auto) 3.3 0.0-7.0 % Basophils (%) (Auto) 1.1 0.0-2.0 % Neutrophils # (Auto) 4.3 1.6-8.6 10 ^3/uL Lymphocytes # (Auto) 1.8 0.4-5.4 10 ^3/uL Monocytes # (Auto) 0.7 0-1.3 10 ^3/uL Eosinophils # (Auto) 0.2 0-0.8 10 ^3/uL Basophils # (Auto) 0.1 0-0.2 10 ^3/uL Nucleated Red Blood Cells 0.3 % Prothrombin Time 10.9 9.3-11.8 sec Prothrombin Time INR 1.03 0.9-1.15 Activated Partial Thromboplast Time 29.2 24.5-34.5 SEC Sodium Level 142 136-145 mmol/L Potassium Level 4.5 3.5-5.1 mmol/L Chloride Level 108 H 98-107 mmol/L Carbon Dioxide Level 25 20-31 mmol/L Anion Gap 9 5-15 Blood Urea Nitrogen 21 9-23 mg/dL Creatinine 1.03 #H 0.550-1.02 mg/dL Glomerular Filtration Rate Calc 55 >90 mL/min BUN/Creatinine Ratio 20.4 H 10.0-20.0 Serum Glucose 102 74-106 mg/dL Calcium Level 10.1 8.7-10.4 mg/dL Magnesium Level 2.1 1.6-2.6 mg/dL Total Bilirubin 0.6 0.2-1.0 mg/dL Aspartate Amino Transferase (AST) 30 13-40 U/L Alanine Aminotransferase (ALT) 17 7-40 U/L Alkaline Phosphatase 80 46-116 U/L B-Type Natriuretic Peptide 1147.60 0-100 pg/mL Total Protein 6.6 5.7-8.2 g/dL Albumin 4.8 3.2-4.8 g/dL PROCEDURE(s): CXRP - CHEST PORTABLE REASON: ORDER NUMBER(s): [id number], ACCESSION NUMBER(s): [id number] CHEST RADIOGRAPH Indication: CP Technique: Single frontal view of the chest was obtained COMPARISON: XY CHEST XRAY 1 VIEW on DOS: 04/29/24, XY CHEST PORTABLE on DOS: 03/19/24, XY CHEST XRAY 1 VIEW on DOS: 02/16/24, XY CHEST PORTABLE on DOS: 12/02/23, XY CHEST PORTABLE on DOS: 11/30/23 FINDINGS: Lines and Tubes: Pacemaker/AICD in left chest with 2 cardiac leads. Sternal wires in place. Lungs: Clear Pleura: No effusion. No pneumothorax. Cardiomediastinal contours: Unremarkable Bones: Unremarkable IMPRESSION: 1. No acute disease. X-Ray, Labs, Meds, VS Comment 78-year-old female with multiple comorbidities including COPD asthma, CHF, CAD, PR status post CABG and PTCA, diabetes, hypertension and dyslipidemia co mplaining of chest pain Vitals remarkable for BP 153/93, oxygen saturation 94% on 2 L nasal cannula, respiratory rate 24 Exam unremarkable Rhythm strip independently interpreted by me: Atrial sensed ventricular paced rhythm at rate of 82. No ectopy. Chest x-ray no acute disease CBC, CMP, coag panel and 1st troponin unremarkable for any abnormality of acute significance. BNP 11 47.6 UA pending Patient received aspirin 325 mg p.o. administered by EMS In the ED patient received the following: Nitro-Bid 1/2 in to chest wall On re-evaluation, patient states pain has partially improved. Vitals are stable. Plan is to admit the patient for serial troponins and Cardiology evaluation. Time of 1ST Reevaluation: 15:18 Reevaluation 1ST: Unchanged Patient Education/Counseling: Diagnosis, Treatment Family Education/Counseling: No Family Present Departure 1 Departure Time of Disposition: 17:04 Impression: Primary Impression: Acute chest pain Disposition: 09 ADMITTED INPATIENT Admit to: Tele Condition: Guarded Critical Care Note Critical Care Time?: No Stability Stability form required: No Heart Score Heart Score: Heart Score Response (Comments) Value History Highly Suspicious 2 EKG N/A 0 Age >65 2 Risk Factors >3 or Hx ASHD 2 Troponin Normal limit 0 Total 6 I personally scribed for WILMER LUCERO MD ([email or web address]) on 05/03/24 at 14:23. Electronically submitted by Prince Gonzáles ([email or web address]). WILMER LUCERO MD May 03, 2024 14:23
[2024-05-03 14:53] LABS: Basophils # (auto) 0.1 10 ^3/uL (0-0.2); Basophils % (auto) 1.1 % (0.0-2.0); Eosinophils # (auto) 0.2 10 ^3/uL (0-0.8); Eosinophils % (auto) 3.3 % (0.0-7.0); Hematocrit 41.6 % (36.0-46.0); Lymphocytes # (auto) 1.8 10 ^3/uL (0.4-5.4); Mean Corpuscular Hemoglobin 29.7 pg (28.0-32.0); Mean Corpuscular Hgb Conc. 33.7 g/dL (32.0-36.0); Mean Corpuscular Volume 88.3 fL (80.0-100.0); Monocytes # (auto) 0.7 10 ^3/uL (0-1.3); Monocytes % (auto) 10.3 % (0.0-12.0); Neutrophils # (auto) 4.3 10 ^3/uL (1.6-8.6); Neutrophils % (auto) 60.3 % (37.0-80.0); Nucleated Red Blood Cells % 0.3 %; Platelet Count (auto) 288 10^3/uL (140-450); Red Blood Cells 4.71 10^6/uL (4.0-5.20); Red Cell Distribution Width 18.3 % (11.8-14.3); White Blood Cell 7.1 10^3/uL (4.4-10.8)
[2024-05-03 15:10] LABS: INR 1.03 (0.9-1.15); Partial Thromboplastin Time 29.2 SEC (24.5-34.5); Prothrombin Time 10.9 sec (9.3-11.8)
[2024-05-03 15:11] LABS: Alanine Aminotransferase 17 U/L (7-40); Albumin 4.8 g/dL (3.2-4.8); Alkaline Phosphatase 80 U/L (46-116); Anion Gap 9 (5-15); Aspartate Aminotransferase 30 U/L (13-40); BUN/Creatinine Ratio 20.4 (10.0-20.0); Bilirubin, Total 0.6 mg/dL (0.2-1.0); Blood Urea Nitrogen 21 mg/dL (9-23); Calcium 10.1 mg/dL (8.7-10.4); Carbon Dioxide 25 mmol/L (20-31); Glucose 102 mg/dL (74-106); Magnesium 2.1 mg/dL (1.6-2.6); Potassium 4.5 mmol/L (3.5-5.1); Sodium 142 mmol/L (136-145); Total Protein 6.6 g/dL (5.7-8.2)
[2024-05-03 15:12] LABS: Chloride 108 mmol/L (98-107)
[2024-05-03 15:16] VITALS: PULSE 80; RESP 18; O2SAT 98
[2024-05-03] MEDS: NITROGLYCERIN 2% OINT 1GM PKG TD ONE (15:16)
--- NOTE | 2024-05-03 16:17 | DVH ---
CHEST RADIOGRAPH Indication: CP Technique: Single frontal view of the chest was obtained COMPARISON: XY CHEST XRAY 1 VIEW on DOS: 04/29/24, XY CHEST PORTABLE on DOS: 03/19/24, XY CHEST XRAY 1 VIEW on DOS: 02/16/24, XY CHEST PORTABLE on DOS: 12/02/23, XY CHEST PORTABLE on DOS: 11/30/23 FINDINGS: Lines and Tubes: Pacemaker/AICD in left chest with 2 cardiac leads. Sternal wires in place. Lungs: Clear Pleura: No effusion. No pneumothorax. Cardiomediastinal contours: Unremarkable Bones: Unremarkable IMPRESSION: 1. No acute disease.
[2024-05-03] MEDS ORDERED: ACETAMINOPHEN 325 MG TAB PO PRN (17:45)
[2024-05-03] MEDS ORDERED: ALBUTEROL SULF 2.5 MG/0.5ML(0.5%) NEB SOLN NEB PRN (17:45)
[2024-05-03] MEDS ORDERED: IPRATROPIUM BROM 0.5 MG/2.5ML INH SOL NEB PRN (17:45)
[2024-05-03] MEDS ORDERED: MORPHINE SULFATE INJ 2 MG/ml SYRG IV PRN (17:45)
[2024-05-03] MEDS ORDERED: DOCUSATE SOD 100 MG CAP PO PRN (17:45)
[2024-05-03] MEDS ORDERED: POLYETHYLENE GLYCOL 17 GM PWDR PO PRN (17:45)
[2024-05-03] MEDS ORDERED: NITROGLYCERIN 0.4 MG SL TAB SL PRN (17:45)
[2024-05-03] MEDS ORDERED: MAALOX PLUS or MAALOX 30 ML PO PRN (17:45)
--- NOTE | 2024-05-03 17:55 | DVHHP2 ---
History of Present Illness Reason for Visit: Shortness of breath History of Present Illness 78-year-old female obese with a history of COPD, hypertension, CHF, CKD, hypertension, hyperlipidemia, and chronic UTIs history of a CABG as well as an ICD placed patient has come to the ED multiple times for the management of shortness of breath and dyspnea patient was last in the ED 4 days ago where she was admitted for the management of fluid overload and acute exacerbation patient at that time had signs of shortness of breath now comes to the ED with Steri similar complaints and was placed for admission and re-evaluation at this time as well Cardiovascular: CAD Pulmonary: COPD Renal/: Chronic renal failure Review of Systems Constitutional: Yes: Weakness; No: Fever, Chills, Sweats, Malaise, Other Eyes: No: Pain, Vision change, Conjunctivae inflammation, Eyelid inflammation, Other, Redness ENT: No: Ear pain, Ear discharge, Nose pain, Nose discharge, Nose congestion, Mouth pain, Mouth swelling, Throat pain, Throat swelling, Other Respiratory: Cough, Shortness of breath; No: Dry, SOB with excertion, Wheezing, Hemoptysis, Pleuritic Pain, Sputum, Wheezing, Other Cardiovascular: Chest Pain, Palpitations; No: Orthopnea, Paroxysmal Noc. Dyspnea, Edema, Lt Headedness, Other Gastrointestinal: No: Nausea, Vomiting, Abdominal Pain, Diarrhea, Constipation, Melena, Hematochezia, Other Genitourinary: No Dysuria, No Frequency, No Incontinence, No Hematuria, No Retention, No Other Musculoskeletal: No: other, neck pain, shoulder pain, arm pain, back pain, hand pain, leg pain, foot pain Skin: No: Rash, Lesions, Jaundice, Bruising, Other Neurological: No: Weakness, Numbness, Incoordination, Change in speech, Confusion, Seizures, Other Allergies: Coded Allergies: Ceftriaxone (Verified Allergy, Intermediate, generalized rash, 11/08/22) SH[employer] DRIERCARLENE MEJIA Codeine (Verified Allergy, Unknown, 09/01/20) Hydrocodone (Verified Allergy, Unknown, rash, 05/18/23) tylenol is okay per patient Exam Vital Signs Vital Signs Date Time Temp Pulse Resp B/P (MAP) Pulse Ox O2 Delivery O2 Flow Rate FiO2 05/03/24 15:16 80 18 98 Nasal Cannula* 2 28 05/03/24 15:16 98.0 135/84 (101) 98.0 General Appearance: Alert, Oriented X3, Cooperative, moderate distress HEENT: Atraumatic, PERRLA Respiratory: Clear to auscultation (Bilateral crackles), Normal air movement Cardiovascular: Regular rate, Normal S1, Normal S2 Abdominal: Normal bowel sounds, Soft Extremities: No clubbing, No cyanosis Skin: No rashes, No breakdown Neuro: Normal speech Psych/Mental Status: Mood NL Labs/Xrays Labs Test 05/03/24 16:08 05/03/24 14:39 Range/Units Lactic Acid Level 1.1 0.4-2.0 mmol/L Troponin I High Sensitivity 32 </=34 ng/L White Blood Count 7.1 # 4.4-10.8 10^3/uL Red Blood Count 4.71 4.0-5.20 10^6/uL Hemoglobin 14.0 12.2-16.2 g/dL Hematocrit 41.6 36.0-46.0 % Mean Corpuscular Volume 88.3 80.0-100.0 fL Mean Corpuscular Hemoglobin 29.7 28.0-32.0 pg Mean Corpuscular Hemoglobin Concent 33.7 32.0-36.0 g/dL Red Cell Distribution Width 18.3 H 11.8-14.3 % Platelet Count 288 140-450 10^3/uL Mean Platelet Volume 8.1 6.9-10.8 fL Neutrophils (%) (Auto) 60.3 37.0-80.0 % Lymphocytes (%) (Auto) 25.0 10.0-50.0 % Monocytes (%) (Auto) 10.3 0.0-12.0 % Eosinophils (%) (Auto) 3.3 0.0-7.0 % Basophils (%) (Auto) 1.1 0.0-2.0 % Neutrophils # (Auto) 4.3 1.6-8.6 10 ^3/uL Lymphocytes # (Auto) 1.8 0.4-5.4 10 ^3/uL Monocytes # (Auto) 0.7 0-1.3 10 ^3/uL Eosinophils # (Auto) 0.2 0-0.8 10 ^3/uL Basophils # (Auto) 0.1 0-0.2 10 ^3/uL Nucleated Red Blood Cells 0.3 % Prothrombin Time 10.9 9.3-11.8 sec Prothrombin Time INR 1.03 0.9-1.15 Activated Partial Thromboplast Time 29.2 24.5-34.5 SEC Sodium Level 142 136-145 mmol/L Potassium Level 4.5 3.5-5.1 mmol/L Chloride Level 108 H 98-107 mmol/L Carbon Dioxide Level 25 20-31 mmol/L Anion Gap 9 5-15 Blood Urea Nitrogen 21 9-23 mg/dL Creatinine 1.03 #H 0.550-1.02 mg/dL Glomerular Filtration Rate Calc 55 >90 mL/min BUN/Creatinine Ratio 20.4 H 10.0-20.0 Serum Glucose 102 74-106 mg/dL Calcium Level 10.1 8.7-10.4 mg/dL Magnesium Level 2.1 1.6-2.6 mg/dL Total Bilirubin 0.6 0.2-1.0 mg/dL Aspartate Amino Transferase (AST) 30 13-40 U/L Alanine Aminotransferase (ALT) 17 7-40 U/L Alkaline Phosphatase 80 46-116 U/L B-Type Natriuretic Peptide 1147.60 0-100 pg/mL Total Protein 6.6 5.7-8.2 g/dL Albumin 4.8 3.2-4.8 g/dL Assessment/Plan Assessment/Plan Admit to [facility] Acute on chronic kidney disorder Bilateral pleural effusions in the setting of the history of acute on chronic CHF exacerbation History of COPD with acute on chronic COPD exacerbation History of diverticulosis BNP evaluated in the ED with a BNP greater than a 1000 Aggressive fluid management Symptomatic treatment Patient with known CKD stage 3 With acute on chronic respiratory distress patient from alf facility Patient with an extensive past medical history We will continue with home medications Aspirin, atorvastatin, carvedilol, Plavix, Lasix will be given IV b.i.d. Multivitamins Pain management Pantoprazole All home medications will be continued at this point in time Plan discussed with: Patient My Orders Orders - ALONDRA DOTSON MD Procedure Category Date Status Time Ascorbic Acid Tablet PHA 05/03/24 Verified (Vitamin C Tablet) 22:00 Aspirin Enteric PHA 05/04/24 Verified Coated Tablet 10:00 Atorvastatin (Lipitor) PHA 05/03/24 Verified 22:00 Carvedilol Tablet PHA 05/03/24 Verified (Coreg Tablet) 22:00 Clopidogrel Bisulfate PHA 05/04/24 Verified (Plavix) 10:00 Duloxetine Hcl PHA 05/04/24 Verified Capsule (Cymbalta 10:00 Multiple Vitamin PHA 05/04/24 Verified Tablet (Mvi Tab) 10:00 Oxycodone W/ Acet PHA 05/03/24 Verified 5/325mg Tab (Percocet 18:00 Pantoprazole Tablet PHA 05/04/24 Verified (Protonix Tablet) 10:00 Polyethylene Glycol PHA 05/03/24 Verified 17g Powder (Miralax 17:45 Primidone Tablet PHA 05/03/24 Verified (Mysoline Tablet) 22:00 Ranolazine (Ranexa Er) PHA 05/03/24 Verified 22:00 Sacubitril-Valsartan PHA 05/03/24 Verified (Entresto 24-26 Mg 22:00 Tamsulosin [facility] 05/03/24 Verified Hydrochloride (Flomax) 18:00 Albuterol Medneb PHA 05/03/24 Verified (Ventolin Medneb) 17:45 Ipratropium Medneb [facility] 05/03/24 Verified (Atrovent Medneb) 17:45 Med Neb Initial RT 05/03/24 Verified Treatment 17:35 Admit ADMIT 05/03/24 Verified 17:35 Code Status CODE 05/03/24 Verified 17:35 Vital Signs [facility] 05/03/24 Verified 17:35 Review Orders With [facility] 05/03/24 Verified Adm. 17:35 Consistent DIET 05/03/24 Verified Carb(Ccho)Diabetes Dinner Alum & Mag PHA 05/03/24 Verified Hydrox-Simethicone 17:45 Docusate Sodium [facility] 05/03/24 Verified Capsule (Colace 17:45 Acetaminophen Tablet [facility] 05/03/24 Verified (Tylenol Tablet) 17:45 Notify Of Changes [facility] 05/03/24 Verified From Base 17:35 Advance Directive [facility] 05/03/24 Verified 17:35 Basic Metabolic Panel LAB 05/04/24 Verified 04:00 Complete Blood Count LAB 05/04/24 Verified 04:00 Patient Condition ORDERS 05/03/24 Verified 17:35 Allergies [facility] 05/03/24 Verified 17:35 Ondansetron Hcl PHA 05/03/24 Verified (Zofran) 17:45 Morphine 2mg Iv Q4hprn [facility] 12/8/24 Verified 17:45 Nitroglycerin PHA 05/03/24 Verified Sublingual (Ntrostat 17:45 Morphine Sulfate [facility] 05/03/24 Verified Injection 17:45 Stat Ekg For Chest [facility] 05/03/24 Verified Pain 17:35 Notify Md Of Changes [facility] 05/03/24 Verified From Base 17:35 Bracelet Form Coverer For [facility] 05/03/24 Verified 24 Hours 17:35 Emergency Dysrhythmia [facility] 05/03/24 Verified Protocol 17:35 Rhythm Strips Once [facility] 05/03/24 Verified Every Shift 17:35 Oxygen By Nasal 05/03/24 Verified Cannula 17:35 Problem List: (1) COPD with acute exacerbation (2) Acute respiratory distress (3) Pulmonary vascular congestion (4) Shortness of breath (5) COPD exacerbation Date of Service: May 03, 2024 Billing Provider: ALONDRA DOTSON MD Common Visit Codes: [id number] INP/OBS CARE (HIGH) ALONDRA DOTSON MD May 03, 2024 17:55
[2024-05-03] MEDS: TAMSULOSIN HYDROCHLORIDE 0.4 MG CAP PO SCH (18:00)
[2024-05-03] MEDS: ATORVASTATIN 20 MG TAB PO SCH (22:40)
[2024-05-03] MEDS: PRIMIDONE 50 MG TAB PO SCH (22:40)
[2024-05-03] MEDS: SACUBITRIL-VALSARTAN 24mg/26mg TAB PO SCH (22:41)
[2024-05-03] MEDS: CARVEDILOL 3.125 MG TAB PO SCH (22:42)
[2024-05-03] MEDS: ASCORBIC ACID 500 MG TAB PO SCH (22:42)
[2024-05-03] MEDS: RANOLAZINE ER 500 MG TAB PO SCH (22:43)
[2024-05-03] MEDS: MORPHINE SULFATE INJ 2 MG/ml SYRG IV PRN (22:53)
[2024-05-04] VITALS (7 sets, daily range): BP systolic 96–145; BP diastolic 42–86; PULSE 66–82; RESP 16–20; TEMP 98–98.2; O2SAT 92–98
[2024-05-04] MEDS: ONDANSETRON HCL 4 MG/2 ML VIAL IV PRN (04:00)
[2024-05-04 06:54] LABS: Potassium 4.3 mmol/L (3.5-5.1); Sodium 141 mmol/L (136-145)
[2024-05-04 06:55] LABS: Anion Gap 9 (5-15); Carbon Dioxide 24 mmol/L (20-31)
[2024-05-04 06:56] LABS: Calcium 9.6 mg/dL (8.7-10.4)
[2024-05-04 06:58] LABS: Chloride 108 mmol/L (98-107)
[2024-05-04 07:01] LABS: BUN/Creatinine Ratio 17.1 (10.0-20.0); Blood Urea Nitrogen 18 mg/dL (9-23); Glucose 85 mg/dL (74-106)
[2024-05-04 07:22] LABS: Basophils # (auto) 0.1 10 ^3/uL (0-0.2); Basophils % (auto) 0.8 % (0.0-2.0); Eosinophils # (auto) 0.3 10 ^3/uL (0-0.8); Eosinophils % (auto) 3.3 % (0.0-7.0); Hematocrit 40.2 % (36.0-46.0); Hemoglobin 13.4 g/dL (12.2-16.2); Lymphocytes % (auto) 37.8 % (10.0-50.0); Mean Corpuscular Hemoglobin 29.4 pg (28.0-32.0); Mean Corpuscular Hgb Conc. 33.3 g/dL (32.0-36.0); Mean Corpuscular Volume 88.1 fL (80.0-100.0); Monocytes % (auto) 12.9 % (0.0-12.0); Neutrophils # (auto) 3.6 10 ^3/uL (1.6-8.6); Neutrophils % (auto) 45.2 % (37.0-80.0); Nucleated Red Blood Cells % 0.5 %; Platelet Count (auto) 241 10^3/uL (140-450); Red Blood Cells 4.57 10^6/uL (4.0-5.20); Red Cell Distribution Width 17.8 % (11.8-14.3); White Blood Cell 7.9 10^3/uL (4.4-10.8)
[2024-05-04] MEDS: FUROSEMIDE 40 MG/4 ML VIAL IV SCH (09:44)
[2024-05-04] MEDS: DULoxetine HCL 30 MG CAP PO SCH (10:05)
[2024-05-04] MEDS: ASPirin-EC 81 mg tab PO SCH (10:05)
[2024-05-04] MEDS: MULTIPLE VITAMIN TAB PO SCH (10:05)
[2024-05-04] MEDS: PANTOPRAZOLE 40 MG TAB PO SCH (10:06)
[2024-05-04] MEDS: CLOPIDOGREL BISULFATE 75 MG TAB PO SCH (10:06)
--- NOTE | 2024-05-04 11:51 | DVHPN2 ---
Subjective The patient is seen and examined at bedside. Complain of shortness a breath Reviewed: Care Plan, H&P, Labs, Medications, Previous Orders, Radiology Changes from previous H/P or p: No Changes Eyes: No Pain, No Vision change, No Conjunctivae inflammation, No Eyelid inflammation, No Other, No Redness ENT: No Ear pain, No Ear discharge, No Nose pain, No Nose discharge, No Nose congestion, No Mouth pain, No Mouth swelling, No Throat pain, No Throat swelling, No Other Cardiovascular: Chest Pain, Palpitations; No Orthopnea, No Paroxysmal Noc. Dyspnea, No Edema, No Lt Headedness, No Other Respiratory: Cough; No Dry; Shortness of breath; No SOB with excertion, No Wheezing, No Hemoptysis, No Pleuritic Pain, No Sputum, No Other Gastrointestinal: No Nausea, No Vomiting, No Abdominal Pain, No Diarrhea, No Constipation, No Melena, No Hematochezia, No Other Genitourinary: No Dysuria, No Frequency, No Incontinence, No Hematuria, No Retention, No Other Musculoskeletal: No other, No neck pain, No shoulder pain, No arm pain, No back pain, No hand pain, No leg pain, No foot pain Skin: No Rash, No Lesions, No Jaundice, No Bruising, No Other Objective Vitals Vital Signs Date Time Temp Pulse Resp B/P (MAP) Pulse Ox O2 Delivery O2 Flow Rate FiO2 05/04/24 10:30 82 16 135/64 (87) 95 05/04/24 10:30 Nasal Cannula* 2 28 05/04/24 02:09 98.0 98.0 General Appearance: Alert, Oriented X3, Cooperative, No acute distress HEENT: Atraumatic, PERRLA, EOMI, Mucous membr. moist/pink Neck: Supple Lungs: Clear to auscultation, Normal air movement Cardiovascular: Regular rate, Normal S1, Normal S2, No murmurs, Gallops, Rubs Neuro: Cranial nerves 3-12 NL Psych/Mental Status: Mental status NL Medications Current Medications Medications Dose Ordered Sig/Asha Route Start Time Stop Time Status Last Admin Dose Admin Ascorbic Acid 500 mg BID PO 05/03/24 22:00 05/04/24 10:05 500 MG Aspirin 81 mg DAILY PO 05/04/24 10:00 05/04/24 10:05 81 MG Atorvastatin Calcium 20 mg HS PO 05/03/24 22:00 05/03/24 22:40 20 MG Carvedilol 3.125 mg BID PO 05/03/24 22:00 05/04/24 10:07 3.125 MG Clopidogrel Bisulfate 75 mg DAILY PO 05/04/24 10:00 05/04/24 10:06 75 MG Duloxetine HCl 30 mg DAILY PO 05/04/24 10:00 05/04/24 10:05 30 MG Multivitamins 1 tab DAILY PO 05/04/24 10:00 05/04/24 10:05 1 TAB Oxycodone/ Acetaminophen 1 tab QID PO 05/03/24 18:00 Pantoprazole Sodium 40 mg DAILY PO 05/04/24 10:00 05/04/24 10:06 40 MG Polyethylene Glycol 17 gm DAILY PRN PO 05/03/24 17:45 Primidone 25 mg HS PO 05/03/24 22:00 05/03/24 22:40 25 MG Ranolazine 500 mg BID PO 05/03/24 22:00 05/04/24 10:04 500 MG Sacubitril/ Valsartan 1 tab BID PO 05/03/24 22:00 05/04/24 10:04 1 TAB Tamsulosin HCl 0.4 mg QPM PO 05/03/24 18:00 Albuterol 2.5 mg Q4HPRN PRN NEB 05/03/24 17:45 Ipratropium [place] 0.5 mg Q4HPRN PRN NEB 05/03/24 17:45 Al Hydrox/Mg Hydrox/Simethicone 30 ml Q6HP PRN PO 05/03/24 17:45 Docusate Sodium 100 mg BIDPRN PRN PO 05/03/24 17:45 Acetaminophen 650 mg Q6HP PRN PO 05/03/24 17:45 Ondansetron HCl 4 mg Q4HP PRN IV 05/03/24 17:45 05/04/24 09:16 4 MG Morphine Sulfate 2 mg Q4HPRN PRN IV 05/03/24 17:45 05/04/24 09:14 2 MG Nitroglycerin 0.4 mg Q5MINP PRN SL 05/03/24 17:45 Morphine Sulfate 2 mg Q30M PRN IV 05/03/24 17:45 Doxycycline Monohydrate 100 mg BID PO 05/03/24 18:00 05/04/24 10:00 100 MG Furosemide 40 mg BID IV 05/03/24 18:00 05/04/24 09:44 40 MG Laboratory Results Laboratory Tests 05/04/24 05:50 Chemistry Test 05/03/24 14:39 05/04/24 05:50 Albumin 4.8 g/dL (3.2-4.8) Calcium Level 10.1 mg/dL (8.7-10.4) 9.6 mg/dL (8.7-10.4) Magnesium Level 2.1 mg/dL (1.6-2.6) Total Protein 6.6 g/dL (5.7-8.2) Coagulation Test 05/03/24 14:39 Prothrombin Time 10.9 sec (9.3-11.8) Prothrombin Time INR 1.03 (0.9-1.15) Activated Partial Thromboplast Time 29.2 SEC (24.5-34.5) Cardiac Markers Test 05/03/24 14:39 B-Type Natriuretic Peptide 1147.60 pg/mL (0-100) LFT Test 05/03/24 14:39 Alanine Aminotransferase (ALT) 17 U/L (7-40) Alkaline Phosphatase 80 U/L (46-116) Aspartate Amino Transferase (AST) 30 U/L (13-40) Total Bilirubin 0.6 mg/dL (0.2-1.0) Labs and/or images reviewed: Labs reviewed by me Assessment/Plan Assessment/Plan Acute on chronic kidney disorder stage III Bilateral pleural effusions in the setting of the history of acute on chronic CHF exacerbation History of COPD with acute on chronic COPD exacerbation History of diverticulosis BNP evaluated in the ED with a BNP greater than a 1000 Aggressive fluid management Symptomatic treatment Patient with known CKD stage 3 With acute on chronic respiratory distress patient from residential facility Patient with an extensive past medical history We will continue with home medications Aspirin, atorvastatin, carvedilol, Plavix, Lasix will be given IV b.i.d. Multivitamins Pain management Pantoprazole All home medications will be continued at this point in time Encouraged the patient to work with physical therapy. Plan discussed with: Patient Date of Service: May 04, 2024 Billing Provider: LUIS REICH MD Common Visit Codes: [id number] INP/OBS CARE(HIGH) LUIS REICH MD May 04, 2024 11:51
[2024-05-04] MEDS: OXYCODONE W/ ACETAMINOPHEN 5/325MG TABLET PO SCH (12:00)
[2024-05-05] VITALS (9 sets, daily range): BP systolic 84–107; BP diastolic 38–54; PULSE 67–78; RESP 18–20; TEMP 97.7–98; O2SAT 96–98
[2024-05-05 06:40] LABS: Basophils # (auto) 0 10 ^3/uL (0-0.2); Basophils % (auto) 0.7 % (0.0-2.0); Eosinophils # (auto) 0.3 10 ^3/uL (0-0.8); Eosinophils % (auto) 5.3 % (0.0-7.0); Hematocrit 38.2 % (36.0-46.0); Hemoglobin 12.4 g/dL (12.2-16.2); Lymphocytes # (auto) 1.9 10 ^3/uL (0.4-5.4); Lymphocytes % (auto) 33.8 % (10.0-50.0); Mean Corpuscular Hemoglobin 29.1 pg (28.0-32.0); Mean Corpuscular Hgb Conc. 32.6 g/dL (32.0-36.0); Mean Corpuscular Volume 89.5 fL (80.0-100.0); Monocytes # (auto) 0.8 10 ^3/uL (0-1.3); Monocytes % (auto) 13.6 % (0.0-12.0); Neutrophils # (auto) 2.7 10 ^3/uL (1.6-8.6); Neutrophils % (auto) 46.6 % (37.0-80.0); Nucleated Red Blood Cells % 0.1 %; Platelet Count (auto) 250 10^3/uL (140-450); Red Blood Cells 4.27 10^6/uL (4.0-5.20); Red Cell Distribution Width 17.8 % (11.8-14.3); White Blood Cell 5.7 10^3/uL (4.4-10.8)
[2024-05-05 06:58] LABS: Chloride 103 mmol/L (98-107); Potassium 4.6 mmol/L (3.5-5.1); Sodium 141 mmol/L (136-145)
[2024-05-05 06:59] LABS: Anion Gap 9 (5-15); Calcium 9.9 mg/dL (8.7-10.4); Carbon Dioxide 29 mmol/L (20-31)
[2024-05-05 07:04] LABS: BUN/Creatinine Ratio 19.9 (10.0-20.0); Glucose 96 mg/dL (74-106)
[2024-05-05 07:06] LABS: Blood Urea Nitrogen 27 mg/dL (9-23)
--- NOTE | 2024-05-05 15:54 | DVHDS2 ---
Discharge Summary Date of Admission May 03, 2024 at 17:35 Date of Discharge: May 05, 2024 Labs/Diagnostic Data: Laboratory Results Test 05/05/24 05:51 05/03/24 18:28 05/03/24 16:08 05/03/24 14:39 White Blood Count 5.7 10^3/uL (4.4-10.8) Red Blood Count 4.27 10^6/uL (4.0-5.20) Hemoglobin 12.4 g/dL (12.2-16.2) Hematocrit 38.2 % (36.0-46.0) Mean Corpuscular Volume 89.5 fL (80.0-100.0) Mean Corpuscular Hemoglobin 29.1 pg (28.0-32.0) Mean Corpuscular Hemoglobin Concent 32.6 g/dL (32.0-36.0) Red Cell Distribution Width 17.8 % (11.8-14.3) Platelet Count 250 10^3/uL (140-450) Mean Platelet Volume 8.1 fL (6.9-10.8) Neutrophils (%) (Auto) 46.6 % (37.0-80.0) Lymphocytes (%) (Auto) 33.8 % (10.0-50.0) Monocytes (%) (Auto) 13.6 % (0.0-12.0) Eosinophils (%) (Auto) 5.3 % (0.0-7.0) Basophils (%) (Auto) 0.7 % (0.0-2.0) Neutrophils # (Auto) 2.7 10 ^3/uL (1.6-8.6) Lymphocytes # (Auto) 1.9 10 ^3/uL (0.4-5.4) Monocytes # (Auto) 0.8 10 ^3/uL (0-1.3) Eosinophils # (Auto) 0.3 10 ^3/uL (0-0.8) Basophils # (Auto) 0 10 ^3/uL (0-0.2) Nucleated Red Blood Cells 0.1 % Sodium Level 141 mmol/L (136-145) Potassium Level 4.6 mmol/L (3.5-5.1) Chloride Level 103 mmol/L (98-107) Carbon Dioxide Level 29 mmol/L (20-31) Anion Gap 9 (5-15) Blood Urea Nitrogen 27 mg/dL (9-23) Creatinine 1.36 mg/dL (0.550-1.02) Glomerular Filtration Rate Calc 40 mL/min (>90) BUN/Creatinine Ratio 19.9 (10.0-20.0) Serum Glucose 96 mg/dL (74-106) Calcium Level 9.9 mg/dL (8.7-10.4) Troponin I High Sensitivity 35 ng/L (</=34) Lactic Acid Level 1.1 mmol/L (0.4-2.0) Prothrombin Time 10.9 sec (9.3-11.8) Prothrombin Time INR 1.03 (0.9-1.15) Activated Partial Thromboplast Time 29.2 SEC (24.5-34.5) Magnesium Level 2.1 mg/dL (1.6-2.6) Total Bilirubin 0.6 mg/dL (0.2-1.0) Aspartate Amino Transferase (AST) 30 U/L (13-40) Alanine Aminotransferase (ALT) 17 U/L (7-40) Alkaline Phosphatase 80 U/L (46-116) B-Type Natriuretic Peptide 1147.60 pg/mL (0-100) Total Protein 6.6 g/dL (5.7-8.2) Albumin 4.8 g/dL (3.2-4.8) Other Laboratory Tests 05/05/24 05:51 Brief Hx & Hospital Course: Patient 78-year-old female known to our service, l live in [facility], needed for abdominal pain. Patient had recurrent lower urinary tract symptoms, chest pain, shortness of breath., however patient was known to have chronic stable end-stage heart failure, COPD on home oxygen. Patient with clear urine culture with multiple lower urinary tract symptoms, concern of overactive bladder, patient also had chronic pain on multiple medication. Patient would benefit from palliative care, and geriatric assessment which she would get as an outpatient, however as she recurrently get admitted, she was never able to get the appointment. Condition at Discharge: Good Final Diagnosis/Problems List [facility] likely [facility] Discharge Disposition: [facility] Discharge Statement: "Patient was advised to return to the ER or call 911 if any headaches, dizziness, shortness of breath, chest pain, abdominal pain, bleeding, fevers, or worsening of medical condition. Patient was counseled about treatment plan, medications, possible side effects, patientverbalized understanding. All questions were answered to the best of my ability. This discharge took greater then 30 minutes in planning, reviewing documentation, counseling the patient, and discussing with other team members." ASSESSMENT ASSESSMENT Assessment Acute on chronic kidney disorder stage III Bilateral pleural effusions in the setting of the history of acute on chronic CHF exacerbation History of COPD with acute on chronic COPD exacerbation History of diverticulosis BNP evaluated in the ED with a BNP greater than a 1000 Aggressive fluid management Symptomatic treatment Patient with known CKD stage 3 chronic respiratory distress patient from alf facility Date of Service: May 05, 2024 Billing Provider: WINSOME GOMEZ MD Common Visit Codes: [id number] DISCH DAY >30min WINSOME GOMEZ MD May 05, 2024 15:54
[2024-05-06] MEDS ORDERED: FUROSEMIDE 40 MG TAB PO SCH (10:00)
[2024-05-06] MEDS ORDERED: FUROSEMIDE 20 MG TAB PO SCH (10:00)
== END 2024-05-05 20:14 | DRG 291 ==
LOC: ER 14:03 → EDBD 14:03 → OVERFLOW 17:35 → WEST WING 05-04 17:03
PROVIDERS: ADMIT Hospitalist; ATTEND Student in an Organized Health Care Education/Training Program
DX: I13.0 Hypertensive heart and chronic kidney disease with heart failure and stage 1 through stage 4 chronic kidney disease, or unspecified chronic kidney disease (principal); N17.0 Acute kidney failure with tubular necrosis; J44.1 Chronic obstructive pulmonary disease with (acute) exacerbation; I50.9 Heart failure, unspecified; K57.90 Diverticulosis of intestine, part unspecified, without perforation or abscess without bleeding; I50.84 End stage heart failure; I25.10 Atherosclerotic heart disease of native coronary artery without angina pectoris; N32.81 Overactive bladder; K21.9 Gastro-esophageal reflux disease without esophagitis; M10.9 Gout, unspecified; E78.5 Hyperlipidemia, unspecified; N18.30 Chronic kidney disease, stage 3 unspecified; G89.29 Other chronic pain; E66.9 Obesity, unspecified; Z88.5 Allergy status to narcotic agent; Z95.810 Presence of automatic (implantable) cardiac defibrillator; Z90.710 Acquired absence of both cervix and uterus; Z95.1 Presence of aortocoronary bypass graft; Z87.442 Personal history of urinary calculi; Z99.81 Dependence on supplemental oxygen; Z68.27 Body mass index [BMI] 27.0-27.9, adult; Z79.899 Other long term (current) drug therapy
CPT/HCPCS: 36415; 71045; 80048; 80053; 82962; 83605; 83735; 83880; 84484; 85025; 85610; 85730; 87081; 93005; 97163; G0378; J2405

== ENCOUNTER 2024-05-24 15:13 | Inpatient (IN) | payer OTHER, MEDICAID ==
[~2024-05-24] VITALS: Ht 162.6 cm; Wt 72.5 kg
--- NOTE | 2024-05-24 16:28 | ED.PDOC ---
HPI Comments 78Y F with PMHx CHF, HTN, AR, HLD, COPD, UTIs, pacemaker, and CABG presents to ED via EMS for chief complaint chest pain x 2days. Pt states chest pain is left- sided and radiates to left arm. Additional symptoms include flu-like sx, dysuria, burning with urination, nausea, and diarrhea x1week. Pt denies SOB and vomiting. Pt is currently not on abx. Chief Complaint: General Weakness Time Seen by MD: 16:16 Primary Care Provider: HORTENCIA Reviewed Notes: Nurses Notes, Printing Bindery Assistant Notes, Medications, Allergies Allergies: Coded Allergies: Ceftriaxone (Verified Allergy, Intermediate, generalized rash, 11/08/22) [employer] OMEGA MEJIA Codeine (Verified Allergy, Unknown, 09/01/20) Hydrocodone (Verified Allergy, Unknown, rash, 05/18/23) tylenol is okay per patient Home Meds Active Scripts Duloxetine Hydrochloride (Duloxetine Hydrochloride) 30 Mg Cap, 30 MG PO DAILY for 30 Days, #30 CAP Prov:WINSOME GOMEZ MD 04/29/24 Phenazopyridine HCl (Phenazopyridine Hydrochlo) 200 Mg Tab, 200 MG PO TID for 3 Days, #9 TAB Prov:NIRALI MARTINO RESIDENT 04/10/24 Primidone (MYSOLINE TABLET) 50 Mg Tb, 25 MG PO HS for 30 Days, #15 TAB Prov:NIRALI MARTINO RESIDENT 04/10/24 Clopidogrel Bisulfate (CLOPIDOGREL) 75 Mg Tab, 75 MG PO DAILY for 30 Days, #30 TAB 5 Refills Prov:YENNY FRAIRE MD 11/26/23 Tamsulosin Hcl (Flomax) 0.4 Mg Cap, 0.4 MG PO QPM for 30 Days, #30 CAP Prov:BHARAT MICHELLE RESIDENT 10/18/23 Ranolazine (Ranolazine ER) 500 Mg Tab, 500 MG PO BID for 30 Days, #60 TAB 2 Refills Prov:MAGAN RUSS RESIDENT 09/16/23 Sacubitril-Valsartan (Entresto 24-26 mg) 1 Tab Tab, 1 TAB PO BID for 30 Days, #60 TAB 3 Refills Prov:LEANNA BROWN DO 05/22/23 Reported Medications Oxycodone W/ Acetaminophen (Percocet 5/325MG) 1 Tab Tb, 1 TAB PO QID, #120 TAB 01/29/24 Polyethylene Glycol 3350 (Miralax) 17 Gm Pow, 17 GM PO DAILY PRN for FOR CONSTIPATION for 30 Days, #30 01/28/24 Lactobacillus (ACIDOPHILUS) Cap, 1 CAP PO BID for 30 Days, #60 09/05/23 Ipratropium-Albuterol (Ipratropium [place]/Albut) 1 Yuli Yuli, 1 VIAL NEB Q6HPRN PRN for SHORTNESS OF BREATH for 13 Days, #180 09/05/23 Fluticasone-Salmeterol (Fluticasone Propionate/SA 250-50 Mcg/Dose) 1 Aer Aer, 1 PUFF INH BID for 30 Days, #60 09/05/23 Albuterol Sulfate (Albuterol Sulfate Hfa) 108 Mcg/Act Aer, 2 PUFF INH Q4HPRN PRN for dyspnea for 17 Days, #18 09/05/23 Cholecalciferol (VITAMIN D3) 2,000 Unit Tab, 1 TAB PO BID for 30 Days, #60 08/28/23 Multiple Vitamin (Tab-A-Radha) Tab, 1 TAB PO DAILY for 30 Days, #30 08/28/23 Aspirin (Aspir-Low) 81 Mg Tab, 1 TAB PO DAILY for 30 Days, #30 08/28/23 Furosemide (Furosemide) 40 Mg Tab, 1 TAB PO DAILY 08/28/23 Ascorbic Acid (VITAMIN C TABLET) 500 Mg Tb, 1 TAB PO BID for 30 Days, #60 05/18/23 Pantoprazole Sodium Sesquihydr (Pantoprazole Sodium) 40 Mg Tab, 1 TAB PO DAILY 05/18/23 Carvedilol (Carvedilol) 3.125 Mg Tab, 1 TAB PO BID for 30 Days, #60 01/02/23 Atorvastatin Calcium (Lipitor) 20 Mg Tab, 1 TAB PO HS for 30 Days, #30 12/30/20 Fluoxetine HCl (Pmdd) (Fluoxetine HCl) 20 Mg Tab, 20 MG PO DAILY, TAB 05/30/20 Information Source: Patient, Emergency Med Personnel Mode of Arrival: EMS Brought in by: EMS Severity: Moderate Timing: Days Duration: Since onset Prehospital treatment: None Location: Chest (L) Radiation: Arm (L) Quality: Other Onset: At Rest Cardiac Risk Factors: Hyperlipidemia, HTN PE Risk Factors: None History of: AR Modifying Factors: Nothing Associated Signs and Symptoms: Other Past Medical History PAST MEDICAL HISTORY: Anemia, Anxiety, Asthma, CAD, CHF, COPD, Depression, GERD, Gout, High Lipids, HTN, Kidney Stones, AR, UTI'S Surgical History: Appendectomy, CABG, Hysterectomy, Pacemaker, PTCA, 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 Family History Family History: Reviewed,noncontributory to illness, Family hx of DM, Family hx of heart gabe Social History Smoker: Non-Smoker Alcohol: Denies ETOH Use Drugs: Denies Drug Use Lives In: Home Constitutional: reports: fatigue, weakness; denies: chills, diaphoresis, fever, malaise, sweats, others EENTM: denies: blurred vision, double vision, ear bleeding, ear discharge, ear drainage, ear pain, ear ringing, eye pain, eye redness, hearing loss, mouth pa in, mouth swelling, nasal discharge, nose bleeding, nose congestion, nose pain, photophobia, tearing, throat pain, throat swelling, voice changes, others Respiratory: denies: cough, hemoptysis, orthopnea, SOB at rest, shortness of breath, SOB with excertion, stridor, wheezing, others Cardiovascular: reports: chest pain, left arm pain; denies: dizzy spells, diaphoresis, Dyspnea on exertion, edema, irregular heart beat, lightheadedness, palpitations, PND, syncope, others Gastrointestinal: reports: diarrhea, nausea; denies: abdomen distended, abdominal pain, blood streaked bowels, constipated, dysphagia, difficulty swallowing, hematemesis, melena, poor appetite, poor fluid intake, rectal bleeding, rectal pain, vomiting, others Genitourinary: reports: burning, dysuria; denies: abnormal vagina bleeding, dyspareunia, flank pain, frequency, hematuria, incontinence, pain, , vagina discharge, urgency, others Neurological: denies: dizziness, fainting, headache, left sided numbness, left sided weakness, numbness, paresthesia, pre-existing deficit, right sided numbness, right sided weakness, seizure, speech problems, tingling, tremors, weakness, others Musculoskeletal: denies: back pain, gout, joint pain, joint swelling, muscle pain, muscle stiffness, neck pain, others Integumetry: denies: bruises, change in color, change in hair/nails, dryness, laceration, lesions, lumps, rash, wounds, others Allergic/Immunocompromised: denies: Difficulty Healing, Frequent Infections, Hives, Itching, others Hematologic/Lymphatic: denies: anemia, blood clots, easy bleeding, easy bruising, swollen glands, others Endocrine: denies: excessive hunger, excessive sweating, excessive thirst, excessive urination, flushing, intolerance to cold, intolerance to heat, unexplained weight gain, unexplained weight loss, others Psychiatric: denies: anxiety, bipolar disorder, depression, hopeless, panic disorder, schizophrenia, sleepless, suicidal, others All Other Systems: Reviewed and Negative Physical Exam General Appearance: No Apparent Distress, Normal HEENT: Normal ENT Inspection, Pharynx Normal, TMs Normal Neck: Full Range of Motion, Non-Tender, Normal, Normal Inspection Respiratory: Chest Non-Tender, Lungs Clear, No Accessory Muscle Use, No Respiratory Distress, Normal Breath Sounds Cardiovascular: No Edema, No JVD, No Murmur, No Gallop, Normal Peripheral Pulses, Regular Rate/Rhythm Breast Exam: Deferred Gastrointestinal: No Organomegaly, Non Tender, No Pulsatile Mass, Normal Bowel Sounds, Soft Genitalia: Deferred Pelvic: Deferred Rectal: Deferred Extremities: No calf tenderness, Normal capillary refill, Normal inspection, Normal range of motion, Non-tender, No pedal edema Musculoskeletal : Apperance: Normal Neurologic: Alert, socially responsible investment adviser II-XII nml as Tested, No Motor Deficits, Normal Affect, Normal Mood, No Sensory Deficits Cerebellar Function: NOT DONE Reflexes: NOT DONE Skin: Dry, Normal Color, Warm Lymphatic: No Adenopathy Was a procedure done? Was a procedure done?: No CP Differential Dx Differential Diagnosis: A-fib, Electrolyte Disorder, Heart Failure X-Ray, Labs, Meds, VS Vital Signs Date Time Temp Pulse Resp B/P (MAP) Pulse Ox O2 Delivery O2 Flow Rate FiO2 05/24/24 17:54 98.7 73 17 108/54 (72) 94 98.7 05/24/24 17:54 73 17 94 Room Air 2.0 05/24/24 15:31 98.7 64 20 130/78 (95) 98 05/24/24 15:24 75 Lab Test 05/24/24 19:40 05/24/24 19:22 05/24/24 18:13 05/24/24 17:54 Range/Units Troponin I High Sensitivity 27 28 </=34 ng/L Urine Color Yellow Yellow Urine Clarity Clear Clear Urine pH 5.0 5.0-9.0 Urine Specific [place] 1.019 1.001-1.035 Urine Protein Negative Negative Urine Ketones Trace Negative Urine Blood Negative Negative /uL Urine Nitrite Negative Negative Urine Bilirubin Negative Negative Urine Urobilinogen Normal Negative mg/dL Urine Leukocyte Esterase 2+ Negative /uL Urine RBC 5 0 - 4 /hpf Urine WBC 10 0 - 5 /hpf Urine Squamous Epithelial Cells Few <5 /hpf Urine Bacteria None seen None Seen /hpf Urine Hyaline Casts Many 0 - 2 /lpf Urine Mucus Few None Seen Urine Glucose Normal Normal mg/dL White Blood Count 6.2 4.4-10.8 10^3/uL Red Blood Count 5.33 H 4.0-5.20 10^6/uL Hemoglobin 16.0 12.2-16.2 g/dL Hematocrit 48.4 H 36.0-46.0 % Mean Corpuscular Volume 90.8 80.0-100.0 fL Mean Corpuscular Hemoglobin 30.0 28.0-32.0 pg Mean Corpuscular Hemoglobin Concent 33.1 32.0-36.0 g/dL Red Cell Distribution Width 17.0 H 11.8-14.3 % Platelet Count 276 140-450 10^3/uL Mean Platelet Volume 7.9 6.9-10.8 fL Neutrophils (%) (Auto) 49.1 37.0-80.0 % Lymphocytes (%) (Auto) 34.4 10.0-50.0 % Monocytes (%) (Auto) 15.2 H 0.0-12.0 % Eosinophils (%) (Auto) 0.7 0.0-7.0 % Basophils (%) (Auto) 0.6 0.0-2.0 % Neutrophils # (Auto) 3.0 1.6-8.6 10 ^3/uL Lymphocytes # (Auto) 2.1 0.4-5.4 10 ^3/uL Monocytes # (Auto) 0.9 0-1.3 10 ^3/uL Eosinophils # (Auto) 0 0-0.8 10 ^3/uL Basophils # (Auto) 0 0-0.2 10 ^3/uL Nucleated Red Blood Cells 0.1 % Sodium Level 140 136-145 mmol/L Potassium Level 4.4 3.5-5.1 mmol/L Chloride Level 106 98-107 mmol/L Carbon Dioxide Level 22 20-31 mmol/L Anion Gap 12 5-15 Blood Urea Nitrogen 28 H 9-23 mg/dL Creatinine 1.26 H 0.550-1.02 mg/dL Glomerular Filtration Rate Calc 43 >90 mL/min BUN/Creatinine Ratio 22.2 H 10.0-20.0 Serum Glucose 78 74-106 mg/dL Lactic Acid Level 1.4 0.4-2.0 mmol/L Calcium Level 10.3 8.7-10.4 mg/dL Total Bilirubin 0.6 0.2-1.0 mg/dL Aspartate Amino Transferase (AST) 28 13-40 U/L Alanine Aminotransferase (ALT) 19 7-40 U/L Alkaline Phosphatase 86 46-116 U/L B-Type Natriuretic Peptide 490.78 0-100 pg/mL Total Protein 7.0 5.7-8.2 g/dL Albumin 5.0 H 3.2-4.8 g/dL Influenza Type A Antigen Negative Negative Influenza Type B Antigen Negative Negative Test 05/24/24 00:00 Range/Units SARS-CoV-2 Antigen (Rapid) Negative NEGATIVE [place] [address] Ph: [phone] DIAGNOSTIC IMAGING Diagnostic Imaging Report : [id number] Signed PATIENT: MONICA JAMES ACCT: [id number] UNIT: [id number] : 1945 LOC: ER ROOM / BED: / AGE / SEX: 78 / F ADM STATUS: REG ER SERVICE [id number] ORDERING PHYSICIAN: BRANDO SANCHEZ MD PROCEDURE(s): CXRP - CHEST PORTABLE REASON: weakness ORDER NUMBER(s): [id number], ACCESSION NUMBER(s): [id number] CHEST RADIOGRAPH Indication: weakness Technique: Single frontal view of the chest was obtained Comparison: XY CHEST PORTABLE on DOS: 05/03/24, XY CHEST XRAY 1 VIEW on DOS: 04/29/24, XY CHEST PORTABLE on DOS: 03/19/24 FINDINGS: Lines and Tubes: Left-sided approach biventricular lead AICD with intact leads. Lungs: No focal consolidation. Mild interstitial prominence. Pleura: No effusion. No pneumothorax. Cardiomediastinal contours: Unremarkable. Midline sternotomy wires are noted. Bones: No acute osseous abnormality. IMPRESSION: Mild pulmonary vascular congestion. ATED BY: ARELIS ALMONTE DO DICTATED DATE/TIME: 05/24/241847 SIGNED BY: ARELIS ALMONTE DO SIGNED DATE/TIME: 05/24/241847 CC: Time of 1ST Reevaluation: 16:46 Reevaluation 1ST: Unchanged Patient Education/Counseling: Diagnosis, Treatment Family Education/Counseling: No Family Present Departure 1 Departure Time of Disposition: 20:26 (Patient presented with chest pain that was concerning for possible STEMI, ACS, PE, Pneumonia, Muscle Strain, COPD, Dissection. Data: 1. I ordered and reviewed the result of at least 3 labs including a CBC, BMP, and Troponin. 2. I independently interpreted the following tests: EKG which shows paced rhythm and Chest X-ray which shows vascular congestion.Risk:This patient has a high risk of morbidity due to further diagnostic testing or treatment and may suffer from an acute cardiac or respiratory disorder. Workup reveals cocnern for acs and patient should be admitted for further workup and possible expert consultation. ) Impression: Primary Impression: Acute chest pain Additional Impression: Dyspnea Qualified Codes: R06.00 - Dyspnea, unspecified Disposition: ADMITTED INPATIENT Admit to: Med Surg Condition: Serious Critical Care Note Critical Care Time?: Yes Critical care comment: Acute chest pain Authorized and Performed by: Brando Sanchez MD Total critical care time: Approximately 38 minutes Due to a high probability of clinically significant, life threatening deterioration, the patient required my highest level of preparedness to intervene emergently and I personally spent this critical care time directly and personally managing the patient. This critical care time included obtaining a history; examining the patient; pulse oximetry; ordering and review of studies; arranging urgent treatment with development of a management plan; evaluation of patient's response to treatment; frequent reassessment; and, discussions with other providers. This critical care time was performed to assess and manage the high probability of imminent, life-threatening deterioration that could result in multi-organ failure. It was exclusive of separately billable procedures and treating other patients and teaching time. Please see my other sections and the rest of the note for further information on patient assessment and treatment. Stability Stability form required: No Heart Score Heart Score: Heart Score Response (Comments) Value History Slightly Suspicious 0 EKG N/A 0 Age >65 2 Risk Factors 1 or 2 risk factors 1 Troponin N/A 0 Total 3 I personally scribed for BRANDO SANCHEZ MD [facility] on 05/24/24 at 16:28. Cindy ctronically submitted by Kiana Muro ([facility]). I personally scribed for BRANDO SANCHEZ MD ([email or web address]) on 05/24/24 at 20:07. Electronically submitted by Kiana Muro ([facility]). BRANDO SANCHEZ MD May 24, 2024 16:28
[2024-05-24 18:43] LABS: Basophils # (auto) 0 10 ^3/uL (0-0.2); Basophils % (auto) 0.6 % (0.0-2.0); Eosinophils # (auto) 0 10 ^3/uL (0-0.8); Eosinophils % (auto) 0.7 % (0.0-7.0); Hematocrit 48.4 % (36.0-46.0); Lymphocytes # (auto) 2.1 10 ^3/uL (0.4-5.4); Lymphocytes % (auto) 34.4 % (10.0-50.0); Mean Corpuscular Hgb Conc. 33.1 g/dL (32.0-36.0); Mean Corpuscular Volume 90.8 fL (80.0-100.0); Monocytes # (auto) 0.9 10 ^3/uL (0-1.3); Monocytes % (auto) 15.2 % (0.0-12.0); Neutrophils % (auto) 49.1 % (37.0-80.0); Nucleated Red Blood Cells % 0.1 %; Platelet Count (auto) 276 10^3/uL (140-450); Red Blood Cells 5.33 10^6/uL (4.0-5.20); White Blood Cell 6.2 10^3/uL (4.4-10.8)
--- NOTE | 2024-05-24 18:51 | DVH ---
CHEST RADIOGRAPH Indication: weakness Technique: Single frontal view of the chest was obtained Comparison: XY CHEST PORTABLE on DOS: 05/03/24, XY CHEST XRAY 1 VIEW on DOS: 04/29/24, XY CHEST PORTABL E on DOS: 03/19/24 FINDINGS: Lines and Tubes: Left-sided approach biventricular lead AICD with intact leads. Lungs: No focal consolidation. Mild interstitial prominence. Pleura: No effusion. No pneumothorax. Cardiomediastinal contours: Unremarkable. Midline sternotomy wires are noted. Bones: No acute osseous abnormality. IMPRESSION: Mild pulmonary vascular congestion.
[2024-05-24 19:00] LABS: Rapid Influenza A Negative (Negative); Rapid Influenza B Negative (Negative)
[2024-05-24 19:01] LABS: COVID19 ANTIGEN SOFIA FIA NEGATIVE (NEGATIVE)
[2024-05-24 19:03] LABS: Alanine Aminotransferase 19 U/L (7-40); Alkaline Phosphatase 86 U/L (46-116); Anion Gap 12 (5-15); BUN/Creatinine Ratio 22.2 (10.0-20.0); Calcium 10.3 mg/dL (8.7-10.4); Carbon Dioxide 22 mmol/L (20-31); Chloride 106 mmol/L (98-107); Glucose 78 mg/dL (74-106); Potassium 4.4 mmol/L (3.5-5.1); Sodium 140 mmol/L (136-145)
[2024-05-24 19:04] LABS: Aspartate Aminotransferase 28 U/L (13-40); Bilirubin, Total 0.6 mg/dL (0.2-1.0)
[2024-05-24 19:10] LABS: Blood Urea Nitrogen 28 mg/dL (9-23)
[2024-05-24 19:47] LABS: Urine Bacteria None Seen /hpf (None Seen)
[2024-05-24 20:03] LABS: Urine Blood Negative /uL (Negative); Urine Clarity Clear (Clear); Urine Color Yellow (Yellow); Urine Hyaline Cast MANY /lpf (0 - 2); Urine Mucus FEW (None Seen); Urine Protein, UAD Negative (Negative); Urine Specific Gravity 1.019 (1.001-1.035); Urine Squamous Epithelial Cell FEW /hpf (<5); Urine Urobilinogen Normal (Negative); Urine WBC 10 /hpf (0 - 5)
[2024-05-25] VITALS (18 sets, daily range): BP systolic 92–138; BP diastolic 46–71; PULSE 64–82; RESP 14–20; TEMP 97.2–98.3; O2SAT 95–100
[2024-05-25] MEDS: ONDANSETRON HCL 4 MG/2 ML VIAL IV ONE (03:00)
[2024-05-25] MEDS: MORPHINE SULFATE 4 MG/ML SYR/VIAL IV ONE (03:02)
[2024-05-25] MEDS ORDERED: NITROGLYCERIN 0.4 MG SL TAB SL PRN (05:15)
[2024-05-25] MEDS ORDERED: cefTRIAXone 1GM/50ML D5W 50 ML IV ONE (05:30)
--- NOTE | 2024-05-25 05:39 | DVHHPRES ---
History of Present Illness Resident Creating Document: STEFFANY MIJARES RESIDENT History of Present Illness Patient is 78-year-old female with past medical history of Chronic obstructive pulmonary disease on 2-3 L oxygen, Parkinson's, history of KS with 3 times stat placement, history of CABG in 2010, HFrEF ejection fraction 10%, chronic recurrent UTI, Chronic obstructive pulmonary disease, hypertension, hyperlipidemia, CKD, diverticulosis who presented to hospital with a chief complaint of left arm numbness which is ongoing for 3-5 days, on and off chest pain mainly located in substernal, no relieving or aggravating factor, present at rest, mild wheezing as well was difficulty of breathing. As per patient she also has mild lower abdominal pain associated with burning urination. Patient denied any other symptoms. Patient lives in for most and according to her she has iodine to taking medication. No any other complaints including fever, chills, motor weakness, dizziness, any other symptoms. Past surgical history Right ovarian mass status post resection, complete hysterectomy, appendectomy, CAD status post CABG, tonsillectomy Home medications: Aspirin, statin, carvedilol, clonazepam, fluoxetine, rano lazine, Entresto, albuterol inhaler, fluticasone inhalation, zolpidem, oxycodone 5/325 mg every 4 hours as needed, fluoxetine, midodrine, cranberry 450 g tablet, docusate sodium, primidone. Social history Lives at [facility] since August 17, previous living facility was [facility] for the past 4 years Former smoker quit 2010 Denies drinking or illicit drug use PCP Dr. Jackson, community engagement leader Dr. Mercado Review of Systems Review of Systems Eyes: No Pain, No Vision change, No Conjunctivae inflammation, No Eyelid inflammation, No Other, No Redness ENT: No Ear pain, No Ear discharge, No Nose pain, No Nose discharge, No Nose congestion, No Mouth pain, No Mouth swelling, No Throat pain, No Throat swelling, No Other Cardiovascular: Chest Pain, No Palpitations, No Orthopnea, No Paroxysmal Noc. Dyspnea, No Edema, No Lt Headedness, No Other Respiratory: No Cough, No Dry, Shortness of breath, No SOB with excertion, No Wheezing, No Hemoptysis, No Pleuritic Pain, No Sputum, No Other Gastrointestinal: No Nausea, No Vomiting, No Abdominal Pain, No Diarrhea, No Constipation, No Melena, No Hematochezia, No Other Genitourinary: No Dysuria, No Frequency, No Incontinence, No Hematuria, No Retention, No Other Musculoskeletal: No other, No neck pain, No shoulder pain, No arm pain, No back pain, No hand pain, No leg pain, No foot pain Skin: No Rash, No Lesions, No Jaundice, No Bruising, No Other Allergies: Coded Allergies: Ceftriaxone (Verified Allergy, Intermediate, generalized rash, 11/08/22) 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 TRAWLERCARLENE MEJIA Codeine (Verified Allergy, Unknown, 09/01/20) Hydrocodone (Verified Allergy, Unknown, rash, 05/18/23) tylenol is okay per patient Medications Current Medications Medications Dose Ordered Sig/Asha Route Start Time Stop Time Status Last Admin Dose Admin Nitroglycerin 0.4 mg Q5MINP PRN SL 05/25/24 05:15 Morphine Sulfate 2 mg Q30M PRN IV 05/25/24 05:15 Exam Vital Signs Vital Signs Date Time Temp Pulse Resp B/P (MAP) Pulse Ox O2 Delivery O2 Flow Rate FiO2 05/25/24 03:32 83 20 155/79 05/25/24 02:52 99 05/24/24 22:55 98.4 98.4 05/24/24 17:54 Room Air 2.0 Exam General Appearance: Cooperative. Well developed. Well nourished. NAD Head Exam: Normal inspection Neck Exam: Normal inspection. Non-tender. Normal alignment Pulmonary/Respiratory: Chest non-tender. Bilateral lungs wheezing, increased expiratory time. Cardiovascular/Chest: Regular rate and rhythm. No murmurs. No JVD. Peripheral Pulses: 2+ Radial (R). 2+ Radial (L). 2+ Pedal (R). 2+ Pedal (L) Abdominal Exam: Normal bowel sounds. Soft. Nontender. No hepatospenomegaly. No masses Ankle Exam: Negative ankle edema Lower extremities: Negative lower extremity edema Neuro/Mental Status: A&O x4. Coherent Thoughts/Psych: Normal thought pattern. Appropriate mood and affect. Good judgement and insight Appearance: In no acute distress Skin Exam: Normal inspection. Normal color. Warm. Dry Labs/Xrays Labs Test 05/24/24 21:43 05/24/24 19:22 05/24/24 18:13 05/24/24 17:54 Range/Units Troponin I High Sensitivity 27 </=34 ng/L Urine Color Yellow Yellow Urine Clarity Clear Clear Urine pH 5.0 5.0-9.0 Urine Specific Causey 1.019 1.001-1.035 Urine Protein Negative Negative Urine Ketones Trace Negative Urine Blood Negative Negative /uL Urine Nitrite Negative Negative Urine Bilirubin Negative Negative Urine Urobilinogen Normal Negative mg/dL Urine Leukocyte Esterase 2+ Negative /uL Urine RBC 5 0 - 4 /hpf Urine WBC 10 0 - 5 /hpf Urine Squamous Epithelial Cells Few <5 /hpf Urine Bacteria None seen None Seen /hpf Urine Hyaline Casts Many 0 - 2 /lpf Urine Mucus Few None Seen Urine Glucose Normal Normal mg/dL White Blood Count 6.2 4.4-10.8 10^3/uL Red Blood Count 5.33 H 4.0-5.20 10^6/uL Hemoglobin 16.0 12.2-16.2 g/dL Hematocrit 48.4 H 36.0-46.0 % Mean Corpuscular Volume 90.8 80.0-100.0 fL Mean Corpuscular Hemoglobin 30.0 28.0-32.0 pg Mean Corpuscular Hemoglobin Concent 33.1 32.0-36.0 g/dL Red Cell Distribution Width 17.0 H 11.8-14.3 % Platelet Count 276 140-450 10^3/uL Mean Platelet Volume 7.9 6.9-10.8 fL Neutrophils (%) (Auto) 49.1 37.0-80.0 % Lymphocytes (%) (Auto) 34.4 10.0-50.0 % Monocytes (%) (Auto) 15.2 H 0.0-12.0 % Eosinophils (%) (Auto) 0.7 0.0-7.0 % Basophils (%) (Auto) 0.6 0.0-2.0 % Neutrophils # (Auto) 3.0 1.6-8.6 10 ^3/uL Lymphocytes # (Auto) 2.1 0.4-5.4 10 ^3/uL Monocytes # (Auto) 0.9 0-1.3 10 ^3/uL Eosinophils # (Auto) 0 0-0.8 10 ^3/uL Basophils # (Auto) 0 0-0.2 10 ^3/uL Nucleated Red Blood Cells 0.1 % Sodium Level 140 136-145 mmol/L Potassium Level 4.4 3.5-5.1 mmol/L Chloride Level 106 98-107 mmol/L Carbon Dioxide Level 22 20-31 mmol/L Anion Gap 12 5-15 Blood Urea Nitrogen 28 H 9-23 mg/dL Creatinine 1.26 H 0.550-1.02 mg/dL Glomerular Filtration Rate Calc 43 >90 mL/min BUN/Creatinine Ratio 22.2 H 10.0-20.0 Serum Glucose 78 74-106 mg/dL Lactic Acid Level 1.4 0.4-2.0 mmol/L Calcium Level 10.3 8.7-10.4 mg/dL Total Bilirubin 0.6 0.2-1.0 mg/dL Aspartate Amino Transferase (AST) 28 13-40 U/L Alanine Aminotransferase (ALT) 19 7-40 U/L Alkaline Phosphatase 86 46-116 U/L B-Type Natriuretic Peptide 490.78 0-100 pg/mL Total Protein 7.0 5.7-8.2 g/dL Albumin 5.0 H 3.2-4.8 g/dL Influenza Type A Antigen Negative Negative Influenza Type B Antigen Negative Negative Test 05/24/24 00:00 Range/Units SARS-CoV-2 Antigen (Rapid) Negative NEGATIVE Assessment/Plan Assessment/Plan Acute COPD exacerbation on 4 L home oxygen Acute Heart failure with reduced ejection fraction - EF 10% Acute on chronic hypoxic respiratory failure Chest pain rule out ACS CAD, history of CABG and PTCA with 6 stents LENORA likely due to questionable vasomotor nephropathy on CKD 3A Facial numbness rule out CVA Presence of AICD History of chronic recurrent UTI History of Parkinson Dyslipidemia History of GERD Diverticulosis Plan -initiate IV methylprednisolone IV b.i.d., antibiotic with levofloxacin, breathing treatment schedule with ipratropium bromide and albuterol -follow-up CT scan of head and carotid ultrasound for possible CVA. Follow with urine culture as well. -IV Lasix 20 mg daily for pulmonary vascular congestion and acute respiratory failure. Avoid ADRIANNA inhibitor her home medication : Entresto for worsened kidney function. Can resume if it is only CKD. -continue aspirin 81 mg p.o. daily and atorvastatin 20 mg p.o. daily. Cardiology consultation for chronic chest pain. Her community engagement leader is Dr. rocha. -continue ranolazine 500 mg p.o. daily and carvedilol 3.125 mg p.o. b.i.d.. -DVT prophylaxis with enoxaparin 40 mg subQ daily. -PUD prophylaxis with Protonix 40 mg daily. -diet: Cardiac, low-salt diet. Goals of care discussed with the patient for more than 30 minutes, DNR status Plan discussed with: Patient My Orders Orders - STEFFANY MIJARES RESIDENT Procedure Category Date Status Time Head Without Contrast CT 05/25/24 Taken 05:15 Admit ADMIT 05/25/24 Transmitted 05:15 Nitroglycerin PHA 05/25/24 In Process Sublingual (Ntrostat 05:15 Morphine Sulfate PHA 05/25/24 In Process Injection 05:15 Oxygen By Nasal RT 05/25/24 Transmitted Cannula 05:15 Clinic Manager For AME 05/25/24 In Process 24 Hours 05:15 Emergency Dysrhythmia AME 05/25/24 In Process Protocol 05:15 Carotid Duplx W Color US 05/25/24 Logged DOP 05:21 Urine Bacterial MELVIN 05/25/24 Logged Culture 05:21 Methylprednisolone PHA 05/25/24 Logged Sod Succ (Solu Medrol 05:30 Methylprednisolone PHA 05/25/24 Logged Sod Succ (Solu Medrol 10:00 Albuterol Medneb PHA 05/25/24 Logged (Ventolin Medneb) 06:00 Ipratropium Medneb PHA 05/25/24 Logged (Atrovent Medneb) 05:30 Aspirin Tablet PHA 05/25/24 Logged 10:00 Aspirin Tablet PHA 05/26/24 Logged 10:00 Carvedilol Tablet PHA 05/25/24 Logged (Coreg Tablet) 05:30 Carvedilol Tablet PHA 05/25/24 Logged (Coreg Tablet) 22:00 Ranolazine (Ranexa Er) PHA 05/25/24 Logged 05:30 Ranolazine (Ranexa Er) PHA 05/25/24 Logged 10:00 Levofloxacin 500mg PHA 05/25/24 Logged (Levaquin 500mg/ 100m 05:30 Levofloxacin 500mg PHA 05/26/24 Logged (Levaquin 500mg/ 100m 10:00 Atorvastatin (Lipitor) PHA 05/25/24 Logged 05:45 Atorvastatin (Lipitor) PHA 05/25/24 Logged 22:00 Enoxaparin Sodium PHA 05/25/24 Verified (Lovenox) 10:00 Pantoprazole PHA 05/25/24 Verified (Protonix) 10:00 Furosemide Injection PHA 05/25/24 Verified (Lasix Injection) 10:00 Date of Service: May 24, 2024 Billing Provider: STEFFANY MIJARES Common Visit Codes: [id number] INP/OBS CARE (HIGH) STEFFANY MIJARES May 25, 2024 05:39 ANGELY BULLOCK MD May 26, 2024 10:43
--- NOTE | 2024-05-25 05:45 | DVH ---
EXAM: CT HEAD WITHOUT CONTRAST INDICATION: facial numbness TECHNIQUE: CT of the head without intravenous contrast. Radiation Dose : 1. Head: CT Dose: CTDI volume is 53.5 mGy. Dose-length product is 750.77 mGy*cm The dose indicators for CT are the volume Computed Tomography (CT) Dose Index (CTDIvol) and the Dose Length Product (DLP), and are measured in units of mGy and mGy-cm, respectively. These indicators are not patient dose, but values generated from the CT scanner acquisition factors. The report includes radiation exposure data for exposures received during this examination. COMPARISON: CT HEAD WITHOUT CONTRAST on DOS: 02/17/24, CT CHEST WITHOUT CONTRAST on DOS: 09/13/23, HEAD WITHOUT CONTRAST on DOS: 04/08/22 FINDINGS: There is no evidence of acute intracranial hemorrhage, extra-axial collection, mass effect, midline s hift, herniation or hydrocephalus. The ventricles, sulci and cisterns are age appropriate. The obrien-white differentiation is intact. Chronic encephalomalacia in the high posterior right frontal lobe. The visualized paranasal sinuses and mastoid air cells are clear. The surrounding soft tissues and osseous structures are unremarkable. IMPRESSION: No acute intracranial abnormality. Radiation optimization: All CT scans at this facility use at least one of these dose optimization lucy hniques: automated exposure control mA and/or kV adjustment per patient size (includes targeted exam s where dose is matched to clinical indication) or iterative reconstruction.
[2024-05-25] MEDS: methylPREDNISolone SOD SUCC 40 MG/ML VL IV ONE (05:51)
[2024-05-25] MEDS ORDERED: levoFLOXacin 500MG 100 ML IV ONE ×2 (06:00→08:00)
[2024-05-25] MEDS: CARVEDILOL 3.125 MG TAB PO ONE (06:02)
[2024-05-25] MEDS: ATORVASTATIN 20 MG TAB PO ONE (06:09)
[2024-05-25] MEDS: RANOLAZINE ER 500 MG TAB PO ONE (06:09)
[2024-05-25] MEDS: ASPirin 81 mg TAB PO ONE (06:09)
[2024-05-25] MEDS: ALBUTEROL SULF 2.5 MG/0.5ML(0.5%) NEB SOLN NEB SCH (06:22)
[2024-05-25] MEDS: IPRATROPIUM BROM 0.5 MG/2.5ML INH SOL NEB PRN (06:22)
[2024-05-25] MEDS: PANTOPRAZOLE 40 MG/10 ML VIAL INJ IV SCH (07:53)
[2024-05-25] MEDS: FUROSEMIDE 20 MG/2 ML VIAL IV SCH (07:53)
[2024-05-25] MEDS: ENOXAPARIN SOD 40 MG/0.4 ML SYRINGE SC SCH (07:54)
[2024-05-25] MEDS: MORPHINE SULFATE INJ 2 MG/ml SYRG IV PRN (08:09)
[2024-05-25] MEDS: DOXYCYCLINE 100MG/250ML 250 ML IV SCH (08:31)
--- NOTE | 2024-05-25 09:55 | DVH ---
Carotid Duplex Clinical History: Carotid stenosis Comparison: None Technique: Duplex Doppler evaluation of the extracranial carotid and vertebral arteries including color Doppler and spectral/pulsed waveform analysis was performed. Findings: RIGHT SIDE: The peak systolic velocities are 70 cm/s in the CCA, 100 cm/s in the ICA. The ICA/CCA ratio is 1.4. The external carotid artery is patent with peak systolic velocity of 108 cm/s proximally. There is appropriate antegrade flow in the right vertebral artery. LEFT SIDE: The peak systolic velocities are 77 cm/s in the CCA, 94 cm/s in the ICA. The ICA/CCA ratio is 1.2. The external carotid artery is patent with peak systolic velocity of 96 cm/s proximally. There is appropriate antegrade flow in the left vertebral artery. IMPRESSION: No hemodynamically significant stenosis noted in the right carotid system. No hemodynamically significant stenosis noted in the left carotid system. Reference: Radiology 2003; 229:340-346 Normal ICA PSV is <125 cm/sec and no plaque or intimal thickening is visible sonographically additional criteria include ICA/CCA PSV ratio <2.0 and ICA EDV <40 cm/sec <50% ICA stenosis ICA PSV is <125 cm/sec and plaque or intimal thickening is visible sonographically additional criteria include ICA/CCA PSV ratio <2.0 and ICA EDV <40 cm/sec 50-69% ICA stenosis ICA PSV is 125-230 cm/sec and plaque is visible sonographically additional criteria include ICA/CCA PSV ratio of 2.0-4.0 and ICA EDV of 40-100 cm/sec 70% ICA stenosis but less than near occlusion ICA PSV is >230 cm/sec and visible plaque and luminal narrowing are seen at obrien-scale and color Dopp ler ultrasound (the higher the Doppler parameters lie above the threshold of 230 cm/sec, the greater the likelihood of severe disease) additional criteria include ICA/CCA PSV ratio >4 and ICA EDV >100 cm/sec
[2024-05-25] MEDS ORDERED: AZITHROMYCIN 500MG/ 250ML 250 ML IV ONE (10:45)
--- NOTE | 2024-05-25 10:46 | DVHPNRES ---
Progress Note Date Seen: May 25, 2024 Resident Creating Document: JORGE MONTGOMERY RESIDENT Has the PT tested + for MRSA If YES, has PT been informed?: No Medical Necessity Reason Pt with a Central, PICC or Fol: No Subjective Review of Systems Saw the patient at [facility] to [facility] ED. Patient reports: No new complaints Changes from previous H/P or p: No Changes Objective vital signs Vital Sign Date Time Temp Pulse Resp B/P (MAP) Pulse Ox O2 Delivery O2 Flow Rate FiO2 05/25/24 08:46 98.3 66 18 116/60 99 3.0 32 98.3 05/25/24 07:27 Nasal Cannula* medications Current Medications Medications Dose Ordered Sig/Asha Route Start Time Stop Time Status Last Admin Dose Admin Nitroglycerin 0.4 mg Q5MINP PRN SL 05/25/24 05:15 Morphine Sulfate 2 mg Q30M PRN IV 05/25/24 05:15 05/25/24 08:09 2 MG Methylprednisolone Sodium Succinate 40 mg DAILY IV 05/26/24 10:00 Albuterol 1.25 mg Q4HR NEB 05/25/24 06:00 05/25/24 06:22 1.25 MG Ipratropium [place] 0.5 mg Q4HPRN PRN NEB 05/25/24 05:30 05/25/24 06:22 0.5 MG Aspirin 81 mg DAILY PO 05/26/24 10:00 Carvedilol 3.125 mg Q12HR PO 05/25/24 22:00 Ranolazine 500 mg BID PO 05/25/24 22:00 Levofloxacin/ Dextrose 100 ml @ 100 mls/hr Q48H IV 05/26/24 10:00 UNV Atorvastatin Calcium 20 mg HS PO 05/25/24 22:00 Enoxaparin Sodium 40 mg DAILY SC 05/25/24 10:00 05/25/24 07:54 40 MG Pantoprazole Sodium 40 mg DAILY IV 05/25/24 10:00 05/25/24 07:53 40 MG Furosemide 20 mg DAILY IV 05/25/24 10:00 05/25/24 07:53 20 MG Doxycycline Hyclate 250 ml @ 125 mls/hr Q12H IV 05/25/24 08:00 05/25/24 08:31 125 MLS/HR Examination: GENERAL:Normal, HEENT:Normal, NECK:Normal, LUNGS:Normal, CVS:Normal, ABDOMEN:Normal (Patient mentions bilateral lower abdominal pain, CVA angle tenderness cefepime on left side,), SKIN:Normal, NEURO:Abnormal (Bilateral patient has strength 2/Hdp@1234 5, patient has baseline parkinsonism has difficulty of walk has wheelchair bound.) laboratory and microbiology Laboratory Tests 05/24/24 18:13 Test 05/24/24 18:13 Range/Units Serum Glucose 78 74-106 mg/dL Labs and/or images reviewed: Labs reviewed by me, Image(s) reviewed by me Problem List/Assessment/Plan Problem List/Assessment/Plan Hospitalization summary/ Assesment: Ms Scott, A 78-year-old female with a history of COPD on 2-3 L oxygen, Parkinson's, [place] with three stent placements, CABG in 2010, HFrEF with an ejection fraction of 10%, recurrent UTIs, hypertension, hyperlipidemia, CKD, and diverticulosis presented with left arm numbness for 3-5 days, intermittent substernal chest pain at rest, mild wheezing, and difficulty breathing. She also reported mild lower abdominal pain with burning urination but denied other symptoms such as fever, chills, motor weakness, or dizziness. Her past surgical history includes resection of a right ovarian mass, complete hysterectomy, appendectomy, CAD status post CABG, and tonsillectomy. Plan: #Acute COPD exacerbation on 4 L home oxygen-initiate IV methylprednisolone IV b.i.d., antibiotic with levofloxacin, breathing treatment schedule with ipratropium bromide and albuterol #HFrEF (Heart failure with reduced ejection fraction) - LVEF was around 10% noted in 11/22/2023. IV Lasix 20 mg daily for pulmonary vascular congestion and acute respiratory failure. Avoid ADRIANNA inhibitor her home medication : Entresto for worsened kidney function. Can resume if it is only CKD. Entresto 09/13/2025 b.i.d. 30 days. #Acute on chronic hypoxic respiratory failure -Chest pain rule out ACS-continue ranolazine 500 mg p.o. daily and carvedilol 3.125 mg p.o. b.i.d.. #CAD, history of CABG and PTCA with 6 stents-continue aspirin 81 mg p.o. daily and atorvastatin 20 mg p.o. daily. Cardiology consultation for chronic chest pain. Her failure analysis engineer is Dr. Tidwell. #LENORA likely due to questionable vasomotor nephropathy on CKD 3A #Facial numbness rule out [id number] CT scan of head and carotid ultrasound for possible CVA. Follow with urine culture as well. #Urinary tract infection #Biotronik of AICD: Atrial-sensed ventricular-paced rhythm #History of chronic recurrent UTI: Previously patient has Proteus mirabilis and history share coli ESBL patient was on ertapenem #History of Parkinsonism , baseline wheelchair-bound. Fall precaution. #Dyslipidemia #History of GERD #chronic kidney disorder stage III #history of diverticulosis #senior living resident. Lives at [facility] since August 17, previous living facility was [facility] for the past 4 years # vitamin-D deficiency: 2000 units IU daily # acute on acute abdominal pain: Examination unremarkable, no surgical abdomen, chronic abdominal pain use the pain medication # nonspecific neurological symptoms: Patient mentioned left facial tingling, numbness, does not correlate with CT, physical exam, no focal neurological deficits, likely psychological/transient. Continue aspirin atorvastatin Diet: Cardiac diet and 2 gram daily salt restriction with 1.5 L fluid restriction. GI prophylaxis: protonix 40mg daily DVT prophylaxis: Levonox 40mg daily Bowel regimen: Docusate 100 mg b.i.d. as needed Barriers to discharge: Medical diagnosis and managment in progress. Patient lives with SNF. Wheelchair-bound. At improvement we will consider sw input and discharge back to the facility. PCP: Dr. Jackson/ Marco A Camp Specialist Relevent To Admission: Interior Design Principal Dr. Mercado Patient care and plan discussed with Dr. Navarro Disposition: Patient remains in Telemetry. Overall poor prognosis. Might consider Patient is Full Code. Discussed with bedside , 29 minutes of detailed discussion. Plan discussed with: Patient, Other My Orders My Orders Orders - JORGE MONTGOMERY RESIDENT Procedure Category Date Status Time Echo 2d Mode Cardiac US 05/25/24 Logged DOP 10:05 Respiratory Culture MELVIN 05/25/24 Logged W/ Gs 10:35 Ertapenem Sod Inj PHA 05/26/24 Logged (Invanz) 10:00 Ertapenem Sod Inj PHA 05/26/24 Logged (Invanz) 10:00 Azithromycin 500mg/ PHA 05/25/24 Logged 250ml (Zithromax 50 10:45 Azithromycin Tablet PHA 05/26/24 Logged (Zithromax Tablet) 10:00 Date of Service: May 25, 2024 Billing Provider: DELFINO VICENTE MD Common Visit Codes: [id number] INP/OBS CARE(HIGH) JORGE MONTGOMERY RESIDENT May 25, 2024 10:46 DELFINO VICENTE MD May 29, 2024 09:38
[2024-05-25] MEDS: AZITHROMYCIN 250 MG TAB PO ONE (11:38)
--- NOTE | 2024-05-25 13:19 | ECG ---
[facility] Test Date: 2024-05-24 Test Time: 15:24:04 Pat Name: MONICA JAMES [facility] F Technical Implementation Lead: gregg : 1945 Requested By: EMERGENCY EMERGENCY Order Number: [id number] Reading MD: Patty Li Measurements Intervals [place] Rate: 75 P: 50 LA: 173 QRS: 239 QRSD: 126 T: 145 QT: 466 QTc: 521 Interpretive Statements Atrial-sensed ventricular-paced complexes PVC No further analysis attempted due to paced rhythm Electronically Signed On 05-25-2024 22:17:56 PST by Patty Li Please click the below link to view image of tracing.
[2024-05-25 13:49] LABS: Alanine Aminotransferase 19 U/L (7-40); Albumin 4.6 g/dL (3.2-4.8); Alkaline Phosphatase 77 U/L (46-116); Anion Gap 11 (5-15); Aspartate Aminotransferase 33 U/L (13-40); BUN/Creatinine Ratio 19.4 (10.0-20.0); Calcium 9.2 mg/dL (8.7-10.4); Carbon Dioxide 22 mmol/L (20-31); Chloride 105 mmol/L (98-107); Potassium 4.3 mmol/L (3.5-5.1); Sodium 138 mmol/L (136-145)
[2024-05-25 13:50] LABS: Bilirubin, Total 0.5 mg/dL (0.2-1.0)
[2024-05-25 13:54] LABS: Blood Urea Nitrogen 28 mg/dL (9-23); Glucose 125 mg/dL (74-106)
[2024-05-25 13:58] LABS: Hematocrit 43.5 % (36.0-46.0); Hemoglobin 14.1 g/dL (12.2-16.2); Mean Corpuscular Hemoglobin 29.5 pg (28.0-32.0); Mean Corpuscular Hgb Conc. 32.4 g/dL (32.0-36.0); Mean Corpuscular Volume 91.3 fL (80.0-100.0); Platelet Count (auto) 263 10^3/uL (140-450); Red Blood Cells 4.77 10^6/uL (4.0-5.20); Red Cell Distribution Width 16.4 % (11.8-14.3); White Blood Cell 4.3 10^3/uL (4.4-10.8)
[2024-05-25 14:26] LABS: Basophils % (manual) 0 (0.0-2.0); Blast Cells 0; Eosinophils % (manual) 0 (0-7); Metamyelocytes % 0; Myelocytes % 0; Promyelocytes % 0; Reactive Lymphocytes 0
[2024-05-25 17:54] LABS: Band Neutrophils % (manual) 2; Lymphocytes % (manual) 20 (10.0-50.0); Monocytes % (manual) 3 (0-12); Platelet Estimate Adequate
--- NOTE | 2024-05-25 18:02 | DVHINCON2 ---
Date of service: May 25, 2024 History of Present Illness HPI Patient is a 78-year-old female who presented to the hospital with few days of atypical chest discomfort/left jaw numbness and left upper extremity numbness. She also had been experiencing dysuria and diarrhea. Cardiology was involved for cardiac aspects of care. Patient is known to our practice from before and outside. Home Meds Active Scripts Duloxetine Hydrochloride (Duloxetine Hydrochloride) 30 Mg Cap, 30 MG PO DAILY for 30 Days, #30 CAP Prov:WINSOME GOMEZ MD 04/29/24 Phenazopyridine HCl (Phenazopyridine Hydrochlo) 200 Mg Tab, 200 MG PO TID for 3 Days, #9 TAB Prov:NIRALI MARTINO RESIDENT 04/10/24 Primidone (MYSOLINE TABLET) 50 Mg Tb, 25 MG PO HS for 30 Days, #15 TAB Prov:NIRALI MARTINO RESIDENT 04/10/24 Clopidogrel Bisulfate (CLOPIDOGREL) 75 Mg Tab, 75 MG PO DAILY for 30 Days, #30 TAB 5 Refills Prov:YENNY FRAIRE MD 11/26/23 Tamsulosin Hcl (Flomax) 0.4 Mg Cap, 0.4 MG PO QPM for 30 Days, #30 CAP Prov:BHARTA MICHELLE 10/18/23 Ranolazine (Ranolazine ER) 500 Mg Tab, 500 MG PO BID for 30 Days, #60 TAB 2 Refills Prov:MAGAN RUSS RESIDENT 09/16/23 Sacubitril-Valsartan (Entresto 24-26 mg) 1 Tab Tab, 1 TAB PO BID for 30 Days, #60 TAB 3 Refills Prov:LEANNA BROWN DO 05/22/23 Reported Medications Oxycodone W/ Acetaminophen (Percocet 5/325MG) 1 Tab Tb, 1 TAB PO QID, #120 TAB 01/29/24 Polyethylene Glycol 3350 (Miralax) 17 Gm Pow, 17 GM PO DAILY PRN for FOR CONSTIPATION for 30 Days, #30 01/28/24 Lactobacillus (ACIDOPHILUS) Cap, 1 CAP PO BID for 30 Days, #60 09/05/23 Ipratropium-Albuterol (Ipratropium [place]/Albut) 1 Yuli Yuli, 1 VIAL NEB Q6HPRN PRN for SHORTNESS OF BREATH for 13 Days, #180 09/05/23 Fluticasone-Salmeterol (Fluticasone Propionate/SA 250-50 Mcg/Dose) 1 Aer Aer, 1 PUFF INH BID for 30 Days, #60 09/05/23 Albuterol Sulfate (Albuterol Sulfate Hfa) 108 Mcg/Act Aer, 2 PUFF INH Q4HPRN PRN for dyspnea for 17 Days, #18 09/05/23 Cholecalciferol (VITAMIN D3) 2,000 Unit Tab, 1 TAB PO BID for 30 Days, #60 08/28/23 Multiple Vitamin (Tab-A-Radha) Tab, 1 TAB PO DAILY for 30 Days, #30 08/28/23 Aspirin (Aspir-Low) 81 Mg Tab, 1 TAB PO DAILY for 30 Days, #30 08/28/23 Furosemide (Furosemide) 40 Mg Tab, 1 TAB PO DAILY 08/28/23 Ascorbic Acid (VITAMIN C TABLET) 500 Mg Tb, 1 TAB PO BID for 30 Days, #60 05/18/23 Pantoprazole Sodium Sesquihydr (Pantoprazole Sodium) 40 Mg Tab, 1 TAB PO DAILY 05/18/23 Carvedilol (Carvedilol) 3.125 Mg Tab, 1 TAB PO BID for 30 Days, #60 01/02/23 Atorvastatin Calcium (Lipitor) 20 Mg Tab, 1 TAB PO HS for 30 Days, #30 12/30/20 Fluoxetine HCl (Pmdd) (Fluoxetine HCl) 20 Mg Tab, 20 MG PO DAILY, TAB 05/30/20 Past Medical History Others Past medical history includes hypertension, hyperlipidemia, coronary artery disease, history of CABG (2010), systolic heart failure, ischemic cardiomyopathy, gout, kidney stone, s/p ESWL, frequent UTI, history of CVA, Diverticulosis, COPD, s/p COVID, depression, Anxiety, GERD, history of appendectomy/hysterectomy/tonsillectomy, and history of BiV ICD (Biotronik) implantation. She is chronically wheelchair-bound. She was previously in hospice for heart failure. She is allergic to codeine. She quit smoking years ago. She is DNR. She also has diagnosis of parkinsonism. Patient Family History: Cardiovascular disease G8 MOTHER, Onset:Unknown Coronary artery disease G8 MOTHER, Onset:Unknown FH: diabetes mellitus G8 MOTHER, Onset:Unknown FH: heart disease G8 MOTHER, Onset:Unknown FH: hypertension G8 MOTHER, Onset:Unknown FH: lupus 19 CHILD FH: myocardial infarction G8 MOTHER, Onset:Unknown Family history: Cardiovascular disease G8 MOTHER, Onset:Unknown G8 FATHER, Onset:Unknown Glaucoma G8 MOTHER, Onset:Unknown Smoker: No Hx (Negative) Alocohol: None Drugs: None [facility] with: [facility] Review of Systems Constitutional: No symptom reported Ears, Nose, & Throat: No symptom reported Pulmonary/Respiratory: Dyspnea, Pleuritic Chest Pain Cardiovascular: Chest Pain Gastrointestinal: Diarrhea Genitourinary: Dysuria, Frequency All Other Systems 14 point review of system was performed. Relevant findings as per above and as per HPI. Otherwise negative. H&P Exam Vital Signs Vital Signs Date Time Temp Pulse Resp B/P (MAP) Pulse Ox O2 Delivery O2 Flow Rate FiO2 05/25/24 17:00 97.2 74 14 104/71 (82) 100 97.2 05/25/24 15:19 Nasal Cannula* 3 32 General Appeara: Well developed Head Exam: Normal inspection Eye Exam: bilateral eye PERRL Mouth: Normal Inspection Pulmonary/Respiratory: Rhonci Cardiovascular/Chest: Regular rate, Systolic murmur Abdominal Exam: Normal bowel sounds, Soft, No tenderness Neuro/Mental St: Alert, Oriented Appearance: Appropriate appearance Eye contact/ Speech: Cooperative Labs/Xrays Labs Test 05/25/24 13:07 05/24/24 21:43 05/24/24 19:22 05/24/24 18:13 Range/Units White Blood Count 4.3 #L 4.4-10.8 10^3/uL Red Blood Count 4.77 4.0-5.20 10^6/uL Hemoglobin 14.1 12.2-16.2 g/dL Hematocrit 43.5 # 36.0-46.0 % Mean Corpuscular Volume 91.3 80.0-100.0 fL Mean Corpuscular Hemoglobin 29.5 28.0-32.0 pg Mean Corpuscular Hemoglobin Concent 32.4 32.0-36.0 g/dL Red Cell Distribution Width 16.4 H 11.8-14.3 % Platelet Count 263 140-450 10^3/uL Mean Platelet Volume 8.4 6.9-10.8 fL Neutrophils (%) (Auto) 37.0-80.0 % Lymphocytes (%) (Auto) 10.0-50.0 % Monocytes (%) (Auto) 0.0-12.0 % Basophils (%) (Auto) 0.0-2.0 % Neutrophils # (Auto) 1.6-8.6 10 ^3/uL Lymphocytes # (Auto) 0.4-5.4 10 ^3/uL Monocytes # (Auto) 0-1.3 10 ^3/uL Sodium Level 138 136-145 mmol/L Potassium Level 4.3 3.5-5.1 mmol/L Chloride Level 105 98-107 mmol/L Carbon Dioxide Level 22 20-31 mmol/L Anion Gap 11 5-15 Blood Urea Nitrogen 28 H 9-23 mg/dL Creatinine 1.44 H 0.550-1.02 mg/dL Glomerular Filtration Rate Calc 37 >90 mL/min BUN/Creatinine Ratio 19.4 10.0-20.0 Serum Glucose 125 H 74-106 mg/dL Calcium Level 9.2 8.7-10.4 mg/dL Total Bilirubin 0.5 0.2-1.0 mg/dL Aspartate Amino Transferase (AST) 33 13-40 U/L Alanine Aminotransferase (ALT) 19 7-40 U/L Alkaline Phosphatase 77 46-116 U/L Total Protein 7.0 5.7-8.2 g/dL Albumin 4.6 3.2-4.8 g/dL Troponin I High Sensitivity 27 </=34 ng/L Urine Color Yellow Yellow Urine Clarity Clear Clear Urine pH 5.0 5.0-9.0 Urine Specific [place] 1.019 1.001-1.035 Urine Protein Negative Negative Urine Ketones Trace Negative Urine Blood Negative Negative /uL Urine Nitrite Negative Negative Urine Bilirubin Negative Negative Urine Urobilinogen Normal Negative mg/dL Urine Leukocyte Esterase 2+ Negative /uL Urine RBC 5 0 - 4 /hpf Urine WBC 10 0 - 5 /hpf Urine Squamous Epithelial Cells Few <5 /hpf Urine Bacteria None seen None Seen /hpf Urine Hyaline Casts Many 0 - 2 /lpf Urine Mucus Few None Seen Urine Glucose Normal Normal mg/dL Eosinophils (%) (Auto) 0.7 0.0-7.0 % Eosinophils # (Auto) 0 0-0.8 10 ^3/uL Basophils # (Auto) 0 0-0.2 10 ^3/uL Nucleated Red Blood Cells 0.1 % Lactic Acid Level 1.4 0.4-2.0 mmol/L B-Type Natriuretic Peptide 490.78 0-100 pg/mL Test 05/24/24 17:54 05/24/24 00:00 Range/Units Influenza Type A Antigen Negative Negative Influenza Type B Antigen Negative Negative SARS-CoV-2 Antigen (Rapid) Negative NEGATIVE Assessment/Plan Plan Patient is a 78-year-old female who presented to the hospital with few days of atypical chest discomfort/left jaw numbness and left upper extremity numbness. She also had been experiencing dysuria and diarrhea. Patient has poor functional capacity. Chest discomforts been pleuritic. Cardiology was involved for cardiac aspects of care. Patient is known to our practice from before and outside. Last interrogation of the ICD in the office was on April 06, 2024. Does have old history of multiple cardiac problems. She had cardiac catheterization in September 2020. She does has have baseline of systolic/ischemic cardiomyopathy. She was and repeated admissions for the same symptomatology. She likes her pain medications. Lying comfortably flat in bed, no JVD, pink and wet mucosa, no carotid bruit, no goiter, lungs: Not using accessory muscles of breathing, lungs reveal scattered rhonchi, cardiac: Regular regular, no thrill/gallop, 2+murmur in apex, abdomen: Soft, no hepatomegaly, some suprapubic and upper epigastric tenderness is positive, no rebound tenderness, extremities: No edema, dorsalis pedis is 2+ bilateral Past medical history includes hypertension, hyperlipidemia, coronary artery disease, history of CABG (2010), systolic heart failure, ischemic card iomyopathy, gout, kidney stone, s/p ESWL, frequent UTI, history of CVA, Diverticulosis, COPD, s/p COVID, depression, Anxiety, GERD, history of appendectomy/hysterectomy/tonsillectomy, and history of BiV ICD (Biotronik) implantation. She is chronically wheelchair-bound. She was previously in hospice for heart failure. She is allergic to codeine. She quit smoking years ago. She is DNR. She also has diagnosis of parkinsonism. Cardiac catheterization of September 2020 revealed ejection fraction of 20%, CHLORINATOR of S VG to diagonal, patent TAN, patent SVG to OM, patent SVG to PDA and CHLORINATOR of RCA. Echocardiogram of November 22, 2023 revealed: Dilated left ventricle, LVEF of 10%, pacing wire and right-sided chambers, mild mitral regurgitation. Echocardiogram of August 28, 2023 revealed: Dilated left ventricle with significantly reduced systolic function. LVEF of 20%. Elevated LVEDP, dilated four chambers. Pacing wire was seen in right-sided chamber. [id number] MR. Echocardiogram of January 03, 2023 revealed ejection fraction of 20 to 25% and mild left ventricular enlargement Echocardiogram of March 25, 2023 (performed in the office) revealed four- chamber dilatation, LVEF of 20 to 25%, mild to moderate MR, mild TR, trace pulmonary valve insufficiency and right ventricular systolic pressure of 35 mmHg Echocardiogram of March 21, 2022 revealed ejection fraction of around 20%, mild MR/TR Echocardiogram of February 17, 2021 revealed dilated LV, LVEF around 25%, severe diffuse hypokinesis, increased LVEDP, dilated left and right atria, mild to moderate MR, mild TR. Echocardiogram of December 30, 2020 reported ejection fraction less than 20% and di lated left atrium. Echocardiogram of August 2020 revealed ejection fraction less than 25%, right atrial enlargement, left atrial enlargement and moderate MR. Creatinine: 1.26 - 1.44 Potassium: 4.4 - 4.3 BNP: 490.78 Troponin (high sensitive): 28 - 27 - 27 Chest x-ray revealed: IMPRESSION: Mild pulmonary vascular congestion. CT of the head revealed: IMPRESSION: No acute intracranial abnormality. Carotid duplex revealed: IMPRESSION: No hemodynamically significant stenosis noted in the right carotid system. No hemodynamically significant stenosis noted in the left carotid system. EKG shows a sensed, V paced rhythm Tele shows sinus rhythm, V paced Patient is a 78-year-old female coming from nursing facility presented for pleuritic chest pain, numbness of the left side. Does have rhonchi in the lung s. Presentation questions URI/bronchitis/COPD exacerbation. Troponin has been negative. Presentation is not considered acute coronary syndrome She does have an ICD which was interrogated last in 2023. Does have baseline history of ischemic/systolic heart failure which at this point is considered compensated. She is DNR. She did have ischemic work-up/cardiac catheterization in September 2020 with the above findings. At this point no ischemic work-up is indicated. Chest pain, atypical Bronchitis/URI COPD exacerbation Ischemic cardiomyopathy, history of Coronary artery disease, status post CABG Diverticular disease Renal calculi Emphysema Kidney stone, history of Coronary artery disease, SP CABG GERD Hypertension Hyperlipidemia Gout Constipation UTI Cardiac suggestion for management: Manage on telemetry Follow-up electrolytes and kidney function tests and correct abnormalities No indication for ischemic work up at this point Continue Aspirin/Plavix Request for interrogation of ICD: Biotronik Request for echocardiogram Management of URI/bronchitis/COPD exacerbation as per primary team/pulmonology. Further evaluation and management depends on the above and clinical course Thank you for consultation A total of 75 minutes was spent reviewing the patient record, examining the patient, making a diagnostic and therapeutic plan, discussing this plan with medical personnel, following up on diagnostic studies and following the patient for clinical stability excluding any and all procedures. At least 50% of this time was spent in direct, [id number] contact. Thank you for allowing me to participate in this patient's care. Further recommendations will depend on patient's clinical course. Please do not hesitate to contact me if you have any questions or concerns. This medical document was created using electronic medical record system with [employer] computerized dictation system. Although this document has been carefully reviewed, there may still be some phonetic and typographical errors. These areas are purely typographical due to the imperfection of the software programs, and do not reflect any compromise in the patient's medical care. Plan discussed with: Patient, Other (Nurse) RODRIGUEZ LEBRON MD May 25, 2024 18:02
[2024-05-25] MEDS: CARVEDILOL 3.125 MG TAB PO SCH (22:00)
[2024-05-25] MEDS: ATORVASTATIN 20 MG TAB PO SCH (22:19)
[2024-05-25] MEDS: RANOLAZINE ER 500 MG TAB PO SCH (22:20)
[2024-05-26] VITALS (16 sets, daily range): BP systolic 102–145; BP diastolic 45–67; PULSE 66–85; RESP 14–19; TEMP 97.6–98.5; O2SAT 92–100
[2024-05-26] MEDS: MEROPENEM 1GM IVPB 50 ML IV SCH (00:03)
--- NOTE | 2024-05-26 07:46 | DVHPN2 ---
Progress Note - Dictate Date Seen: May 26, 2024 Has the PT tested + for MRSA If YES, has PT been informed?: No Medical Necessity Reason Pt with a Central, PICC or Fol: No vital signs Vital Sign Date Time Temp Pulse Resp B/P (MAP) Pulse Ox O2 Delivery O2 Flow Rate FiO2 05/26/24 01:00 98.4 66 19 102/52 (69) 98 98.4 05/25/24 20:00 Nasal Cannula* 2 28 Total Intake and Output 05/25/24 05/25/24 05/26/24 15:00 23:00 07:00 Intake Total 240 ml 1000 ml Balance 240 ml 1000 ml medications Current Medications Medications Dose Ordered Sig/Asha Route Start Time Stop Time Status Last Admin Dose Admin Nitroglycerin 0.4 mg Q5MINP PRN SL 05/25/24 05:15 Morphine Sulfate 2 mg Q30M PRN IV 05/25/24 05:15 05/25/24 16:08 2 MG Methylprednisolone Sodium Succinate 40 mg DAILY IV 05/26/24 10:00 Albuterol 1.25 mg Q4HR NEB 05/25/24 06:00 05/25/24 22:29 1.25 MG Ipratropium [place] 0.5 mg Q4HPRN PRN NEB 05/25/24 05:30 05/25/24 22:29 0.5 MG Aspirin 81 mg DAILY PO 05/26/24 10:00 Carvedilol 3.125 mg Q12HR PO 05/25/24 22:00 Ranolazine 500 mg BID PO 05/25/24 22:00 05/25/24 22:20 500 MG Levofloxacin/ Dextrose 100 ml @ 100 mls/hr Q48H IV 05/26/24 10:00 UNV Atorvastatin Calcium 20 mg HS PO 05/25/24 22:00 05/25/24 22:19 20 MG Enoxaparin Sodium 40 mg DAILY SC 05/25/24 10:00 05/25/24 07:54 40 MG Pantoprazole Sodium 40 mg DAILY IV 05/25/24 10:00 05/25/24 07:53 40 MG Furosemide 20 mg DAILY IV 05/25/24 10:00 05/25/24 07:53 20 MG Azithromycin 250 mg DAILY PO 05/26/24 10:00 Meropenem 50 ml @ 16 mls/hr Q12HR IV 05/25/24 22:00 05/26/24 00:03 16 MLS/HR laboratory and microbiology Laboratory Tests 05/25/24 13:07 Test 05/25/24 13:07 Range/Units Serum Glucose 125 H 74-106 mg/dL Assessment/Plan Patient is a 78-year-old female who presented to the hospital with few days of atypical chest discomfort/left jaw numbness and left upper extremity numbness. She also had been experiencing dysuria and diarrhea. Patient has poor functional capacity. Chest discomforts been pleuritic. Cardiology was involved for cardiac aspects of care. Patient is known to our practice from before and outside. Last interrogation of the ICD in the office was on April 06, 2024. Does have old history of multiple cardiac problems. She had cardiac catheterization in September 2020. She does has have baseline of systolic/ischemic cardiomyopathy. She was and repeated admissions for the same symptomatology. She likes her pain medications. Lying comfortably flat in bed, no JVD, pink and wet mucosa, no carotid bruit, no goiter, lungs: Not using accessory muscles of breathing, lungs reveal scattered rhonchi, cardiac: Regular regular, no thrill/gallop, 2+murmur in apex, abdomen: Soft, no hepatomegaly, some suprapubic and upper epigastric tenderness is positive, no rebound tenderness, extremities: No edema, dorsalis pedis is 2+ bilateral Past medical history includes hypertension, hyperlipidemia, coronary artery disease, history of CABG (2010), systolic heart failure, ischemic cardiomyopathy, gout, kidney stone, s/p ESWL, frequent UTI, history of CVA, Diverticulosis, COPD, s/p COVID, depression, Anxiety, GERD, history of appendectomy/hysterectomy/tonsillectomy, and history of BiV ICD (Biotronik) implantation. She is chronically wheelchair-bound. She was previously in hospice for heart failure. She is allergic to codeine. She quit smoking years ago. She is DNR. She also has diagnosis of parkinsonism. Cardiac catheterization of September 2020 revealed ejection fraction of 20%, INTERNAL GRINDER SET UP OPERATOR of SVG to diagonal, patent TAN, patent SVG to OM, patent SVG to PDA and INTERNAL GRINDER SET UP OPERATOR of RCA. Echocardiogram of November 22, 2023 revealed: Dilated left ventricle, LVEF of 10%, pacing wire and right-sided chambers, mild mitral regurgitation. Echocardiogram of August 28, 2023 revealed: Dilated left ventricle with significantly reduced systolic function. LVEF of 20%. Elevated LVEDP, dilated four chambers. Pacing wire was seen in right-sided chamber. [id number] MR. Echocardiogram of January 03, 2023 revealed ejection fraction of 20 to 25% and mild left ventricular enlargement Echocardiogram of March 25, 2023 (performed in the office) revealed four- chamber dilatation, LVEF of 20 to 25%, mild to moderate MR, mild TR, trace pulmonary valve insufficiency and right ventricular systolic pressure of 35 mmHg Echocardiogram of March 21, 2022 revealed ejection fraction of around 20%, mild MR/TR Echocardiogram of February 17, 2021 revealed dilated LV, LVEF around 25%, severe diffuse hypokinesis, increased LVEDP, dilated left and right atria, mild to moderate MR, mild TR. Echocardiogram of December 30, 2020 reported ejection fraction less than 20% and dilated left atrium. Echocardiogram of August 2020 revealed ejection fraction less than 25%, right atrial enlargement, left atrial enlargement and moderate MR. Creatinine: 1.26 - 1.44 Potassium: 4.4 - 4.3 BNP: 490.78 Troponin (high sensitive): 28 - 27 - 27 Chest x-ray revealed: IMPRESSION: Mild pulmonary vascular congestion. CT of the head revealed: IMPRESSION: No acute intracranial abnormality. Carotid duplex revealed: IMPRESSION: No hemodynamically significant stenosis noted in the right carotid system. No hemodynamically significant stenosis noted in the left carotid system. EKG shows a sensed, V paced rhythm Tele shows sinus rhythm, V paced Patient is a 78-year-old female coming from nursing facility presented for pleuritic chest pain, numbness of the left side. Does have rhonchi in the lungs. Presentation questions URI/bronchitis/COPD exacerbation. Troponin has been negative. Presentation is not considered acute coronary syndrome She does have an ICD which was interrogated last in 2023. Does have baseline history of ischemic/systolic heart failure which at this point is considered compensated. She is DNR. She did have ischemic work-up/cardiac catheterization in September 2020 with the above findings. At this point no ischemic work-up is indicated. Chest pain, atypical Bronchitis/URI COPD exacerbation Ischemic cardiomyopathy, history of Coronary artery disease, status post CABG Diverticular disease Renal calculi Emphysema Kidney stone, history of Coronary artery disease, SP CABG GERD Hypertension Hyperlipidemia Gout Constipation UTI Cardiac suggestion for management: Manage on telemetry Follow-up electrolytes and kidney function tests and correct abnormalities No indication for ischemic work up at this point Continue Aspirin/Plavix Request for interrogation of ICD: Biotronik Request for echocardiogram Management of URI/bronchitis/COPD exacerbation as per primary team/pulmonology. Further evaluation and management depends on the above and clinical course A total of 55 minutes was spent reviewing the patient record, examining the patient, making a diagnostic and therapeutic plan, discussing this plan with medical personnel, following up on diagnostic studies and following the patient for clinical stability excluding any and all procedures. At least 50% of this time was spent in direct, [id number] contact. Thank you for allowing me to participate in this patient's care. Further recommendations will depend on patient's clinical course. Please do not hesitate to contact me if you have any questions or concerns. This medical document was created using electronic medical record system with [employer] computerized dictation system. Although this document has been carefully reviewed, there may still be some phonetic and typographical errors. These areas are purely typographical due to the imperfection of the software programs, and do not reflect any compromise in the patient's medical care. Plan discussed with: Patient, Other (nurse) RODRIGUEZ LEBRON MD May 26, 2024 07:46
[2024-05-26] MEDS ORDERED: AZITHROMYCIN 250 MG TAB PO SCH (10:00)
[2024-05-26] MEDS ORDERED: levoFLOXacin 500MG 100 ML IV SCH (10:00)
[2024-05-26] MEDS ORDERED: ERTAPENEM SOD 1 GM INJ VIAL IM SCH ×2 (10:00)
[2024-05-26] MEDS: CLOPIDOGREL BISULFATE 75 MG TAB PO SCH (11:49)
[2024-05-26] MEDS: ASPirin 81 mg TAB PO SCH (11:50)
[2024-05-26] MEDS: methylPREDNISolone SOD SUCC 40 MG/ML VL IV SCH (11:51)
[2024-05-26 12:12] LABS: Basophils # (auto) 0 10 ^3/uL (0-0.2); Basophils % (auto) 0.6 % (0.0-2.0); Eosinophils # (auto) 0.1 10 ^3/uL (0-0.8); Eosinophils % (auto) 1.2 % (0.0-7.0); Hematocrit 38.7 % (36.0-46.0); Hemoglobin 13.1 g/dL (12.2-16.2); Lymphocytes # (auto) 2.5 10 ^3/uL (0.4-5.4); Lymphocytes % (auto) 35.6 % (10.0-50.0); Mean Corpuscular Hemoglobin 30.5 pg (28.0-32.0); Mean Corpuscular Hgb Conc. 33.7 g/dL (32.0-36.0); Mean Corpuscular Volume 90.4 fL (80.0-100.0); Monocytes # (auto) 0.9 10 ^3/uL (0-1.3); Monocytes % (auto) 12.1 % (0.0-12.0); Neutrophils # (auto) 3.6 10 ^3/uL (1.6-8.6); Neutrophils % (auto) 50.5 % (37.0-80.0); Nucleated Red Blood Cells % 0.1 %; Platelet Count (auto) 246 10^3/uL (140-450); Red Blood Cells 4.28 10^6/uL (4.0-5.20); Red Cell Distribution Width 16.5 % (11.8-14.3); White Blood Cell 7.1 10^3/uL (4.4-10.8)
[2024-05-26 12:17] LABS: Alanine Aminotransferase 15 U/L (7-40); Albumin 4.3 g/dL (3.2-4.8); Alkaline Phosphatase 70 U/L (46-116); Anion Gap 9 (5-15); Aspartate Aminotransferase 23 U/L (13-40); BUN/Creatinine Ratio 23.9 (10.0-20.0); Calcium 9.9 mg/dL (8.7-10.4); Carbon Dioxide 25 mmol/L (20-31); Chloride 107 mmol/L (98-107); Glucose 99 mg/dL (74-106); Potassium 3.8 mmol/L (3.5-5.1); Sodium 141 mmol/L (136-145)
[2024-05-26 12:18] LABS: Bilirubin, Total 0.6 mg/dL (0.2-1.0); Total Protein 6.3 g/dL (5.7-8.2)
[2024-05-26 12:26] LABS: Blood Urea Nitrogen 32 mg/dL (9-23)
--- NOTE | 2024-05-26 12:39 | MEDREC ---
[facility] ASP Intervention Section I [facility] ASP Intervention: Review courses of therapy (DUE TO PROLONG (QTc > 500) PLEASE CONSIDER SWITCHING AZITHROMYCIN TO DOXYCYLINE) ) TAMAR AQUINO PHARMACIST May 26, 2024 12:39
--- NOTE | 2024-05-26 15:00 | DVHSR ---
APPROVED REPORT EXAM: Two-dimensional and M-mode echocardiogram with Doppler and color Doppler. Blood Pressure: 102/52 mmHg INDICATION HFrEF 10% EF > 6 MONTHS RISK FACTORS Obesity: Height: 5'4, Weight: 163 DIMENSIONS LVDd6.5 (3.8-5.7cm)LA (2D)3.7 (1.9-4.0cm)Aortic Root2.9 (2.0-3.7cm) LVDs5.9 (2.5-4.0cm)LA (MM) (1.9-4.0cm)Aortic Cusp Exc1.3 (1.5-2.0cm) EF (%) 18.0 (55-70%)Rt. Atrium3.8 (1.9-4.0cm)Asc. Aorta cm IVSd0.9 (0.7-1.1cm)RV (D) (1.8-2.4cm) PWd0.8 (0.7-1.1cm) Mitral Valve MitralMitral Stenosis E wave0.47m/sMV Mean GR.mmHg A wave1.15m/sMV Peak GR.107mmHg E/A ratio0.42D MVAcm2 DECEL [id number] 1/2 [place] Aortic Valve Aortic ValveAortic Stenosis V10.90m/Pedro Mean GR.4mmHg V21.31m/Pedro Peak GR.7mmHg LVOT Diameter2.3 (1.8-2.4cm)Doppler AVA2.85cm2 Pulmonic Valve V21.02m/s Conclusion Left ventricle: Left ventricle was dilated with significantly reduced systolic function. LVEF was 1 5-20%. Diffuse hypokinesis of left ventricle with regional variation was seen. Abnormal relaxation of left ventricular diastolic function was observed. Right ventricle revealed reduced systolic function. Mild biatrial enlargement was seen. Pacing wire was seen in the right-sided chambers. Aortic valve was not well visualized. There was no aortic insufficiency/stenosis. There was mild mi tral regurgitation. There was no tricuspid regurgitation. As there was no good tricuspid regurgitat ion jet, right ventricular systolic pressure could not be estimated. Pulmonary valve was not well vi sualized. There was no pericardial effusion.
[2024-05-26] MEDS ORDERED: ONDANSETRON HCL 4 MG/2 ML VIAL IV PRN (16:30)
--- NOTE | 2024-05-26 18:55 | DVHPNRES ---
Progress Note Date Seen: May 26, 2024 Resident Creating Document: JORGE MONTGOMERY RESIDENT Has the PT tested + for MRSA If YES, has PT been informed?: No Medical Necessity Reason Pt with a Central, PICC or Fol: No Subjective Review of Systems Hemodynamically stable asking for pain medications with nonspecific symptoms . waiting for urine culture. Patient reports: No new complaints Changes from previous H/P or p: No Changes Objective vital signs Vital Sign Date Time Temp Pulse Resp B/P (MAP) Pulse Ox O2 Delivery O2 Flow Rate FiO2 05/26/24 17:00 97.7 78 18 106/51 (69) 97 97.7 05/26/24 10:13 Nasal Cannula* 3 32 Total Intake and Output 05/25/24 05/25/24 05/26/24 15:00 23:00 07:00 Intake Total 240 ml 1000 ml Balance 240 ml 1000 ml medications Current Medications Medications Dose Ordered Sig/Asha Route Start Time Stop Time Status Last Admin Dose Admin Nitroglycerin 0.4 mg Q5MINP PRN SL 05/25/24 05:15 Morphine Sulfate 2 mg Q30M PRN IV 05/25/24 05:15 05/25/24 16:08 2 MG Methylprednisolone Sodium Succinate 40 mg DAILY IV 05/26/24 10:00 05/26/24 11:51 40 MG Albuterol 1.25 mg Q4HR NEB 05/25/24 06:00 05/26/24 14:03 1.25 MG Ipratropium [place] 0.5 mg Q4HPRN PRN NEB 05/25/24 05:30 05/26/24 14:03 0.5 MG Aspirin 81 mg DAILY PO 05/26/24 10:00 05/26/24 11:50 81 MG Carvedilol 3.125 mg Q12HR PO 05/25/24 22:00 05/26/24 11:52 3.125 MG Ranolazine 500 mg BID PO 05/25/24 22:00 05/26/24 16:48 500 MG Levofloxacin/ Dextrose 100 ml @ 100 mls/hr Q48H IV 05/26/24 10:00 UNV Atorvastatin Calcium 20 mg HS PO 05/25/24 22:00 05/25/24 22:19 20 MG Enoxaparin Sodium 40 mg DAILY SC 05/25/24 10:00 05/26/24 11:52 40 MG Pantoprazole Sodium 40 mg DAILY IV 05/25/24 10:00 05/26/24 11:50 40 MG Furosemide 20 mg DAILY IV 05/25/24 10:00 05/26/24 11:51 20 MG Azithromycin 250 mg DAILY PO 05/26/24 10:00 Hold Meropenem 50 ml @ 16 mls/hr Q12HR IV 05/25/24 22:00 05/26/24 11:49 16 MLS/HR Clopidogrel Bisulfate 75 mg DAILY PO 05/26/24 10:00 05/26/24 11:49 75 MG Ondansetron HCl 4 mg Q6HPRN PRN IV 05/26/24 16:30 Hold Examination GENERAL:Normal, HEENT:Normal, NECK:Normal, LUNGS:Normal, CVS:Normal, ABDOMEN:Normal (Patient mentions bilateral lower abdominal pain, CVA angle tenderness cefepime on left side,), SKIN:Normal, NEURO:Abnormal (Bilateral patient has strength 2/ 5, patient has baseline parkinsonism has difficulty of walk has wheelchair bound.) laboratory and microbiology Laboratory Tests 05/26/24 11:18 Test 05/26/24 11:18 Range/Units Serum Glucose 99 74-106 mg/dL Microbiology Date/Time Source Procedure Growth Status 05/25/24 07:30 Urine - Midstream Clean Catch Urine Culture - Preliminary Resulted Labs and/or images reviewed: Labs reviewed by me, Image(s) reviewed by me Problem List/Assessment/Plan Problem List/Assessment/Plan Hospitalization summary/ Assesment: Ms Scott, A 78-year-old female with a history of COPD on 2-3 L oxygen, Parkinson's, [place] with three stent placements, CABG in 2010, HFrEF with an ejection fraction of 10%, recurrent UTIs, hypertension, hyperlipidemia, CKD, and diverticulosis presented with left arm numbness for 3-5 days, intermittent substernal chest pain at rest, mild wheezing, and difficulty breathing. She also reported mild lower abdominal pain with burning urination but denied other symptoms such as fever, chills, motor weakness, or dizziness. Her past surgical history includes resection of a right ovarian mass, complete hysterectomy, appendectomy, CAD status post CABG, and tonsillectomy. She is hemodybnamically stable but asking for more pain medications. Plan: #Acute COPD exacerbation on 4 L home oxygen-initiate IV methylprednisolone IV b.i.d., antibiotic with levofloxacin, breathing treatment schedule with ipratropium bromide and albuterol #HFrEF (Heart failure with reduced ejection fraction) - LVEF was around 10% noted in 11/22/2023. IV Lasix 20 mg daily for pulmonary vascular congestion and acute respiratory failure. Avoid ADRIANNA inhibitor her home medication : Entresto for worsened kidney function. Can resume if it is only CKD. Entresto 09/13/2025 b.i.d. 30 days. #Acute on chronic hypoxic respiratory failure -Chest pain rule out ACS-continue ranolazine 500 mg p.o. daily and carvedilol 3.125 mg p.o. b.i.d.. #CAD, history of CABG and PTCA with 6 stents-continue aspirin 81 mg p.o. daily and atorvastatin 20 mg p.o. daily. Cardiology consultation for chronic chest pain. Her personal finance instructor is Dr. Tidwell. #LENORA likely due to questionable vasomotor nephropathy on CKD 3A #Facial numbness rule out [id number] CT scan of head and carotid ultrasound for possible CVA. Follow with urine culture as well. #Urinary tract infection #Biotronik of AICD: Atrial-sensed ventricular-paced rhythm #History of chronic recurrent UTI: Previously patient has Proteus mirabilis and history share coli ESBL patient was on ertapenem #History of Parkinsonism , baseline wheelchair-bound. Fall precaution. #Dyslipidemia #History of GERD #chronic kidney disorder stage III #history of diverticulosis #jail resident. Lives at [facility] since August 17, previous living facility was [facility] for the past 4 years # vitamin-D deficiency: 2000 units IU daily # acute on acute abdominal pain: Examination unremarkable, no surgical abdomen, chronic abdominal pain use the pain medication # nonspecific neurological symptoms: Patient mentioned left facial tingling, numbness, does not correlate with CT, physical exam, no focal neurological deficits, likely psychological/transient. Continue aspirin atorvastatin and plavix appreciate cardiology input. Diet: Cardiac diet and 2 gram daily salt restriction with 1.5 L fluid restriction. GI prophylaxis: protonix 40mg daily DVT prophylaxis: Levonox 40mg daily Bowel regimen: Docusate 100 mg b.i.d. as needed Barriers to discharge: Medical diagnosis and managment in progress. Patient lives with SNF. Wheelchair-bound. At improvement we will consider sw input and discharge back to the facility. PCP: Dr. Jackson/ Marco A Camp Specialist Relevent To Admission: Fruit Thinner Dr. Mercado Patient care and plan discussed with Dr. Navarro Disposition: Patient remains in Telemetry. Overall poor prognosis. Might consider hospice level of care. Patient is Full Code. Discussed with bedside , 29 minutes of detailed discussion. Avoid unnecessary pain medication. Plan discussed with: Patient, Other My Orders My Orders Orders - JORGE MONTGOMERY Procedure Category Date Status Time Ondansetron Hcl PHA 05/26/24 In Process (Zofran) 16:30 Date of Service: May 26, 2024 Billing Provider: DELFINO VICENTE MD Common Visit Codes: [id number] INP/OBS CARE(HIGH) JORGE MONTGOMERY RESIDENT May 26, 2024 18:55 DELFINO VICENTE MD May 29, 2024 09:48
[2024-05-26] MEDS: MORPHINE SULFATE INJ 2 MG/ml SYRG IV ONE (22:16)
[2024-05-26] MEDS: ONDANSETRON HCL 4 MG/2 ML VIAL IV ONE (22:16)
[2024-05-27] VITALS (21 sets, daily range): BP systolic 107–157; BP diastolic 40–66; PULSE 63–85; RESP 14–20; TEMP 98–98.7; O2SAT 92–100
[2024-05-27] MEDS: ONDANSETRON HCL 4 MG/2 ML VIAL IV ONE (05:58)
[2024-05-27] MEDS: MORPHINE SULFATE INJ 2 MG/ml SYRG IV ONE (05:59)
[2024-05-27 06:31] LABS: Basophils # (auto) 0 10 ^3/uL (0-0.2); Basophils % (auto) 0.3 % (0.0-2.0); Eosinophils # (auto) 0 10 ^3/uL (0-0.8); Eosinophils % (auto) 0.1 % (0.0-7.0); Hematocrit 36.3 % (36.0-46.0); Lymphocytes # (auto) 1.7 10 ^3/uL (0.4-5.4); Lymphocytes % (auto) 21.2 % (10.0-50.0); Mean Corpuscular Hgb Conc. 33.1 g/dL (32.0-36.0); Mean Corpuscular Volume 90.8 fL (80.0-100.0); Monocytes # (auto) 0.9 10 ^3/uL (0-1.3); Monocytes % (auto) 11.3 % (0.0-12.0); Neutrophils # (auto) 5.5 10 ^3/uL (1.6-8.6); Neutrophils % (auto) 67.1 % (37.0-80.0); Nucleated Red Blood Cells % 0.1 %; Platelet Count (auto) 216 10^3/uL (140-450); Red Cell Distribution Width 16.2 % (11.8-14.3); White Blood Cell 8.2 10^3/uL (4.4-10.8)
[2024-05-27 07:07] LABS: Alanine Aminotransferase 13 U/L (7-40); Alkaline Phosphatase 62 U/L (46-116); Anion Gap 6 (5-15); Aspartate Aminotransferase 15 U/L (13-40); BUN/Creatinine Ratio 27.7 (10.0-20.0); Bilirubin, Total 0.4 mg/dL (0.2-1.0); Calcium 10.3 mg/dL (8.7-10.4); Carbon Dioxide 27 mmol/L (20-31); Glucose 104 mg/dL (74-106); Potassium 4.5 mmol/L (3.5-5.1); Sodium 140 mmol/L (136-145)
[2024-05-27 07:29] LABS: Blood Urea Nitrogen 33 mg/dL (9-23); Chloride 107 mmol/L (98-107)
--- NOTE | 2024-05-27 13:54 | DVHPNRES ---
Progress Note Date Seen: May 27, 2024 Resident Creating Document: JORGE MONTGOMERY RESIDENT Has the PT tested + for MRSA If YES, has PT been informed?: No Medical Necessity Reason Pt with a Central, PICC or Fol: No Subjective Review of Systems Hemodynamically stable asking for pain medications with nonspecific symptoms . Urine culture grew ESBL E.coli and Proteus. Spoke to Dr. Claudio. Demanding pain medication or leave the hospital. Patient is given home dose of pain medications. Spoke to her bedside and mentioned we will discharge her when culture returns. Patient reports: Other Objective vital signs Vital Sign Date Time Temp Pulse Resp B/P (MAP) Pulse Ox O2 Delivery O2 Flow Rate FiO2 05/27/24 12:47 98.2 70 18 107/42 (63) 98 98.2 05/27/24 10:00 Nasal Cannula* 2 28 Total Intake and Output 05/26/24 05/26/24 05/27/24 15:00 23:00 07:00 Intake Total 50 ml 880 ml 450 ml Balance 50 ml 880 ml 450 ml medications Current Medications Medications Dose Ordered Sig/Asha Route Start Time Stop Time Status Last Admin Dose Admin Nitroglycerin 0.4 mg Q5MINP PRN SL 05/25/24 05:15 Morphine Sulfate 2 mg Q30M PRN IV 05/25/24 05:15 05/25/24 16:08 2 MG Methylprednisolone Sodium Succinate 40 mg DAILY IV 05/26/24 10:00 05/27/24 10:15 40 MG Albuterol 1.25 mg Q4HR NEB 05/25/24 06:00 05/27/24 09:50 1.25 MG Ipratropium [place] 0.5 mg Q4HPRN PRN NEB 05/25/24 05:30 05/27/24 09:50 0.5 MG Aspirin 81 mg DAILY PO 05/26/24 10:00 05/27/24 10:14 81 MG Carvedilol 3.125 mg Q12HR PO 05/25/24 22:00 05/27/24 10:14 3.125 MG Ranolazine 500 mg BID PO 05/25/24 22:00 05/27/24 10:13 500 MG Levofloxacin/ Dextrose 100 ml @ 100 mls/hr Q48H IV 05/26/24 10:00 UNV Atorvastatin Calcium 20 mg HS PO 05/25/24 22:00 05/26/24 22:18 20 MG Enoxaparin Sodium 40 mg DAILY SC 05/25/24 10:00 05/27/24 10:16 40 MG Pantoprazole Sodium 40 mg DAILY IV 05/25/24 10:00 05/27/24 10:14 40 MG Furosemide 20 mg DAILY IV 05/25/24 10:00 05/27/24 10:15 20 MG Clopidogrel Bisulfate 75 mg DAILY PO 05/26/24 10:00 05/27/24 10:14 75 MG Ondansetron HCl 4 mg Q6HPRN PRN IV 05/26/24 16:30 Hold Ertapenem 1 gm DAILY IM 05/28/24 10:00 UNV Examination GENERAL:Normal, HEENT:Normal, NECK:Normal, LUNGS:Normal, CVS:Normal, ABDOMEN:Normal (Patient mentions bilateral lower abdominal pain, CVA angle tenderness cefepime on left side,), SKIN:Normal, NEURO:Abnormal (Bilateral patient has strength 2/ 5, patient has baseline parkinsonism has difficulty of walk has wheelchair bound.) laboratory and microbiology Laboratory Tests 05/27/24 05:15 Test 05/27/24 05:15 Range/Units Serum Glucose 104 74-106 mg/dL Microbiology Date/Time Source Procedure Growth Status 05/25/24 07:30 Urine - Midstream Clean Catch Urine Culture - Final Escherichia coli - ESBL Proteus mirabilis Complete Labs and/or images reviewed: Labs reviewed by me, Image(s) reviewed by me Problem List/Assessment/Plan Problem List/Assessment/Plan Hospitalization Summary/ Assessment: Ms Scott, A 78-year-old female with a history of COPD on 2-3 L oxygen, Parkinson's, [place] with three stent placements, CABG in 2010, HFrEF with an ejection fraction of 10%, recurrent UTIs, hypertension, hyperlipidemia, CKD, and diverticulosis presented with left arm numbness for 3-5 days, intermittent substernal chest pain at rest, mild wheezing, and difficulty breathing. She also reported mild lower abdominal pain with burning urination but denied other symptoms such as fever, chills, motor weakness, or dizziness. Her past surgical history includes resection of a right ovarian mass, complete hysterectomy, appendectomy, CAD status post CABG, and tonsillectomy. She is hemodynamically stable but asking for more pain medications, likely pain seeking behaviour. Urine culture positive for ESBL E.Coli and Proteus both sensitive to Ertepenam. Will need 2 weeks of IV antibiotics with Invanz 1 gm daily for 14 days. Plan: #Acute COPD exacerbation: on 4 L home oxygen-initiate IV methylprednisolone IV b.i.d., antibiotic with levofloxacin, breathing treatment schedule with ipratropium bromide and albuterol #HFrEF (Heart failure with reduced ejection fraction) - LVEF was around 10% noted in 11/22/2023. IV Lasix 20 mg daily for pulmonary vascular congestion and acute respiratory failure. Avoid ADRIANNA inhibitor her home medication : Entresto for worsened kidney function. Can resume if it is only CKD. Entresto 09/13/2025 b.i.d. 30 days. #Acute on chronic hypoxic respiratory failure -Chest pain rule out ACS-continue ranolazine 500 mg p.o. daily and carvedilol 3.125 mg p.o. b.i.d.. #CAD, history of CABG and PTCA with 6 stents-continue aspirin 81 mg p.o. daily and atorvastatin 20 mg p.o. daily. Cardiology consultation for chronic chest pain. Her database designer is Dr. Tidwell. #LENORA: likely due to questionable vasomotor nephropathy on CKD 3A #Facial numbness: rule out [id number] CT scan of head and carotid ultrasound for possible CVA. Follow with urine culture as well. #Urinary tract infection : Urinalysis positive and ESBL E Coli and Proteus positive. #Biotronik of AICD: Atrial-sensed ventricular-paced rhythm #History of chronic recurrent UTI: Previously patient has Proteus mirabilis and history share coli ESBL patient was on ertapenem 14 days 1gm daily. #History of Parkinsonism , baseline wheelchair-bound: Fall precaution. #Dyslipidemia : continue statin. #History of GERD: continue PPI #chronic kidney disorder stage III : monitor , avoid nephrotoxics. #history of diverticulosis # [facility] resident: Lives at [facility] since August 17, previous living facility was [facility] for the past 4 years. Patient needs placement to SNF # vitamin-D deficiency: 2000 units IU daily # acute on acute abdominal pain: Examination unremarkable, no surgical abdomen, chronic abdominal pain use the pain medication. Limit pain medication not exceeding # nonspecific neurological symptoms: Patient mentioned left facial tingling, numbness, does not correlate with CT, physical exam, no focal neurological deficits, likely psychological/transient. Continue aspirin atorvastatin and plavix appreciate cardiology input. # Opioid seeking behaviour: with complaint of nonspecific vague pain symptoms increasing tantrums for opiod pain medications. several counseling done. Avoid unnecessary pain medication. Diet: Cardiac diet and 2 gram daily salt restriction with 1.5 L fluid restriction. GI prophylaxis: protonix 40mg daily DVT prophylaxis: Levonox 40mg daily Bowel regimen: Docusate 100 mg b.i.d. as needed Barriers to discharge: SNF discharge with 14 days of Invanz. Wheelchair-bound. SW input pending. PCP: Dr. Jackson/ Marco A Camp Specialist Relevant To Admission: Bank Messenger Dr. Mercado / Dr. Claudio. Patient care and plan discussed with Dr. Navarro Disposition: Patient remains in Telemetry. Overall poor prognosis. Might consider hospice level of care. Full Code: Discussed with bedside , 29 minutes of detailed discussion. Plan discussed with: Patient, Other (RN, Primary Team, Primary Bank Messenger. ) My Orders My Orders Orders - JORGE MONTGOMERY RESIDENT Procedure Category Date Status Time Ondansetron Hcl PHA 05/26/24 In Process (Zofran) 16:30 Discontinue Tele AME 05/27/24 In Process 10:14 Transfer Orders XFER 05/27/24 Transmitted 10:14 Ertapenem Sod Inj PHA 05/28/24 Logged (Invanz) 10:00 * Receiving Dock Checker CONS 05/27/24 Transmitted Consult Date of Service: May 27, 2024 Billing Provider: DELFINO VICENTE MD Common Visit Codes: [id number] INP/OBS CARE(HIGH) JORGE MONTGOMERY RESIDENT May 27, 2024 13:54 DELFINO VICENTE MD May 29, 2024 09:49
[2024-05-27] MEDS: OXYCODONE W/ ACETAMINOPHEN 5/325MG TABLET PO PRN (17:53)
[2024-05-28] VITALS (20 sets, daily range): BP systolic 103–124; BP diastolic 52–81; PULSE 60–88; RESP 16–20; TEMP 97.6–98.3; O2SAT 96–100
[2024-05-28] MEDS: METOCLOPRAMIDE HCL 5MG/ml INJ 2ml VIAL IV SCH (00:15)
[2024-05-28] MEDS: OXYCODONE W/ ACETAMINOPHEN 5/325MG TABLET PO PRN (04:26)
--- NOTE | 2024-05-28 07:41 | DVHPN2 ---
Progress Note - Dictate Date Seen: May 28, 2024 Has the PT tested + for MRSA If YES, has PT been informed?: No Medical Necessity Reason Pt with a Central, PICC or Fol: No vital signs Vital Sign Date Time Temp Pulse Resp B/P (MAP) Pulse Ox O2 Delivery O2 Flow Rate FiO2 05/28/24 06:55 60 16 98 05/28/24 06:49 Nasal Cannula 3.0 05/28/24 06:49 32 05/28/24 05:00 97.9 104/57 (73) 97.9 Total Intake and Output 05/27/24 05/27/24 05/28/24 15:00 23:00 07:00 Intake Total 50 ml 900 ml 1010 ml Balance 50 ml 900 ml 1010 ml medications Current Medications Medications Dose Ordered Sig/Asha Route Start Time Stop Time Status Last Admin Dose Admin Nitroglycerin 0.4 mg Q5MINP PRN SL 05/25/24 05:15 Morphine Sulfate 2 mg Q30M PRN IV 05/25/24 05:15 05/25/24 16:08 2 MG Methylprednisolone Sodium Succinate 40 mg DAILY IV 05/26/24 10:00 05/27/24 10:15 40 MG Albuterol 1.25 mg Q4HR NEB 05/25/24 06:00 05/28/24 06:49 1.25 MG Ipratropium [place] 0.5 mg Q4HPRN PRN NEB 05/25/24 05:30 05/28/24 01:57 0.5 MG Aspirin 81 mg DAILY PO 05/26/24 10:00 05/27/24 10:14 81 MG Carvedilol 3.125 mg Q12HR PO 05/25/24 22:00 05/27/24 23:20 3.125 MG Ranolazine 500 mg BID PO 05/25/24 22:00 05/27/24 22:00 500 MG Levofloxacin/ Dextrose 100 ml @ 100 mls/hr Q48H IV 05/26/24 10:00 UNV Atorvastatin Calcium 20 mg HS PO 05/25/24 22:00 05/27/24 23:19 20 MG Enoxaparin Sodium 40 mg DAILY SC 05/25/24 10:00 05/27/24 10:16 40 MG Pantoprazole Sodium 40 mg DAILY IV 05/25/24 10:00 05/27/24 10:14 40 MG Furosemide 20 mg DAILY IV 05/25/24 10:00 05/27/24 10:15 20 MG Clopidogrel Bisulfate 75 mg DAILY PO 05/26/24 10:00 05/27/24 10:14 75 MG Ondansetron HCl 4 mg Q6HPRN PRN IV 05/26/24 16:30 Hold Ertapenem 1 gm DAILY IM 05/28/24 10:00 Metoclopramide HCl 5 mg Q8HR IV 05/27/24 23:59 05/28/24 05:34 5 MG Oxycodone/ Acetaminophen 1 tab Q4HP PRN PO 05/28/24 00:00 05/28/24 04:26 1 TAB laboratory and microbiology Laboratory Tests 05/27/24 05:15 Test 05/27/24 05:15 Range/Units Serum Glucose 104 74-106 mg/dL Assessment/Plan Patient is a 78-year-old female who presented to the hospital with few days of atypical chest discomfort/left jaw numbness and left upper extremity numbness. She also had been experiencing dysuria and diarrhea. Patient has poor functional capacity. Chest discomforts been pleuritic. Cardiology was involved for cardiac aspects of care. Patient is known to our practice from before and outside. Last interrogation of the ICD in the office was on April 06, 2024. Does have old history of multiple cardiac problems. She had cardiac catheterization in September 2020. She does has have baseline of systolic/ischemic cardiomyopathy. She was and repeated admissions for the same symptomatology. She likes her pain medications. Lying comfortably flat in bed, no JVD, pink and wet mucosa, no carotid bruit, no goiter, lungs: Not using accessory muscles of breathing, lungs reveal scattered rhonchi, cardiac: Regular regular, no thrill/gallop, 2+murmur in apex, abdomen: Soft, no hepatomegaly, some suprapubic and upper epigastric tenderness is positive, no rebound tenderness, extremities: No edema, dorsalis pedis is 2+ bilateral Past medical history includes hypertension, hyperlipidemia, coronary artery disease, history of CABG (2010), systolic heart failure, ischemic cardiomyopathy, gout, kidney stone, s/p ESWL, frequent UTI, history of CVA, Diverticulosis, COPD, s/p COVID, depression, Anxiety, GERD, history of appendectomy/hysterectomy/tonsillectomy, and history of BiV ICD (Biotronik) implantation. She is chronically wheelchair-bound. She was previously in hospice for heart failure. She is allergic to codeine. She quit smoking years ago. She is DNR. She also has diagnosis of parkinsonism. Cardiac catheterization of September 2020 revealed ejection fraction of 20%, KNOTTER of SVG to diagonal, patent TAN, patent SVG to OM, patent SVG to PDA and KNOTTER of RCA. Echocardiogram of November 22, 2023 revealed: Dilated left ventricle, LVEF of 10%, pacing wire and right-sided chambers, mild mitral regurgitation. Echocardiogram of August 28, 2023 revealed: Dilated left ventricle with significantly reduced systolic function. LVEF of 20%. Elevated LVEDP, dilated four chambers. Pacing wire was seen in right-sided chamber. [id number] MR. Echocardiogram of January 03, 2023 revealed ejection fraction of 20 to 25% and mild left ventricular enlargement Echocardiogram of March 25, 2023 (performed in the office) revealed four- chamber dilatation, LVEF of 20 to 25%, mild to moderate MR, mild TR, trace pulmonary valve insufficiency and right ventricular systolic pressure of 35 mmHg Echocardiogram of March 21, 2022 revealed ejection fraction of around 20%, mild MR/TR Echocardiogram of February 17, 2021 revealed dilated LV, LVEF around 25%, severe diffuse hypokinesis, increased LVEDP, dilated left and right atria, mild to moderate MR, mild TR. Echocardiogram of December 30, 2020 reported ejection fraction less than 20% and dilated left atrium. Echocardiogram of August 2020 revealed ejection fraction less than 25%, right atrial enlargement, left atrial enlargement and moderate MR. Creatinine: 1.26 - 1.44 - 1.34 - 1.19 Potassium: 4.4 - 4.3 - 3.8 - 4.5 BNP: 490.78 Troponin (high sensitive): Chest x-ray revealed: IMPRESSION: Mild pulmonary vascular congestion. CT of the head revealed: IMPRESSION: No acute intracranial abnormality. Carotid duplex revealed: IMPRESSION: No hemodynamically significant stenosis noted in the right carotid system. No hemodynamically significant stenosis noted in the left carotid system. EKG shows a sensed, V paced rhythm Tele shows sinus rhythm, V paced Echocardiogram reported: Left ventricle: Left ventricle was dilated with significantly reduced systolic function. LVEF was 15-20%. Diffuse hypokinesis of left ventricle with regional variation was seen. Abnormal relaxation of left ventricular diastolic function was observed. Right ventricle revealed reduced systolic function. Mild biatrial enlargement was seen. Pacing wire was seen in the right-sided chambers. Aortic valve was not well visualized. There was no aortic insufficiency/stenosis. There was mild mitral regurgitation. There was no tricuspid regurgitation. As there was no good tricuspid regurgitation jet, right ventricular systolic pressure could not be estimated. Pulmonary valve was not well visualized. There was no pericardial effusion. Biotronik Interrogation: Battery status: MOS1; Remaining Battery: 67%; DDDR/BiV: 70/130; Sensing: A3.1/RV14.5/LV8.1 mV; Pacing threshold: A0.7/RV1.2/LV3.5 V; Pacing impedance: A560/RV462/LV638 Ohm; Shock impedance: RV81 Ohm; Atrial burden: 0.0%; Pacing A/LV/BiV/APPLICATIONS TRAINER: //96/97%; No specific episodes Normal Functioning BiV-ICD Patient is a 78-year-old female coming from nursing facility presented for pleuritic chest pain, numbness of the left side. Does have rhonchi in the lungs. Presentation questions URI/bronchitis/COPD exacerbation. Troponin has been negative. Presentation is not considered acute coronary syndrome She does have an ICD which was interrogated last in 2023. Does have baseline history of ischemic/systolic heart failure which at this point is considered compensated. She is DNR. She did have ischemic work-up/cardiac catheterization in September 2020 with the above findings. At this point no ischemic work-up is indicated. Chest pain, atypical Bronchitis/URI COPD exacerbation Ischemic cardiomyopathy, history of Coronary artery disease, status post CABG Diverticular disease Renal calculi Emphysema Kidney stone, history of Coronary artery disease, SP CABG GERD Hypertension Hyperlipidemia Gout Constipation UTI Cardiac suggestion for management: Manage on telemetry Follow-up electrolytes and kidney function tests and correct abnormalities No indication for ischemic work up at this point Continue Aspirin/Plavix Management of URI/bronchitis/COPD exacerbation as per primary team/pulmonology. Cardiac monge is stable and can be followed as outpatient. Further evaluation and management depends on the above and clinical course A total of 55 minutes was spent reviewing the patient record, examining the patient, making a diagnostic and therapeutic plan, discussing this plan with medical personnel, following up on diagnostic studies and following the patient for clinical stability excluding any and all procedures. At least 50% of this time was spent in direct, [id number] contact. Thank you for allowing me to participate in this patient's care. Further recommendations will depend on patient's clinical course. Please do not hesitate to contact me if you have any questions or concerns. This medical document was created using electronic medical record system with [employer] computerized dictation system. Although this document has been carefully reviewed, there may still be some phonetic and typographical errors. These areas are purely typographical due to the imperfection of the software programs, and do not reflect any compromise in the patient's medical care. Plan discussed with: Patient, Other (nurse) RODRIGUEZ LEBRON MD May 28, 2024 07:41
--- NOTE | 2024-05-28 08:09 | DVHNC2 ---
Procedure - Biotronik Interrogation: Battery status: MOS1 Remaining Battery: 67% DDDR/BiV: 70/130 Sensing: A3.1/RV14.5/LV8.1 mV Pacing threshold: A0.7/RV1.2/LV3.5 V Pacing impedance: A560/RV462/LV638 Ohm Shock impedance: RV81 Ohm Atrial burden: 0.0 Pacing A/LV/BiV/MICA PASTER: 28//96/97% No specific episodes Normal Functioning BiV-ICD RODRIGUZE LEBRON MD May 28, 2024 08:09
[2024-05-28] MEDS ORDERED: ERTAPENEM SOD 1 GM INJ VIAL IM SCH (10:00)
[2024-05-28] MEDS ORDERED: ERTAPENEM SOD 1 GM INJ VIAL IV SCH (10:45)
[2024-05-28 12:16] LABS: Basophils # (auto) 0.1 10 ^3/uL (0-0.2); Basophils % (auto) 0.8 % (0.0-2.0); Eosinophils # (auto) 0.1 10 ^3/uL (0-0.8); Eosinophils % (auto) 1.1 % (0.0-7.0); Hematocrit 39.3 % (36.0-46.0); Hemoglobin 13.3 g/dL (12.2-16.2); Lymphocytes # (auto) 2.6 10 ^3/uL (0.4-5.4); Lymphocytes % (auto) 31.9 % (10.0-50.0); Mean Corpuscular Hemoglobin 30.6 pg (28.0-32.0); Mean Corpuscular Hgb Conc. 33.9 g/dL (32.0-36.0); Mean Corpuscular Volume 90.1 fL (80.0-100.0); Monocytes # (auto) 1.1 10 ^3/uL (0-1.3); Monocytes % (auto) 14.2 % (0.0-12.0); Neutrophils # (auto) 4.2 10 ^3/uL (1.6-8.6); Nucleated Red Blood Cells % 0.1 %; Platelet Count (auto) 234 10^3/uL (140-450); Red Blood Cells 4.36 10^6/uL (4.0-5.20); Red Cell Distribution Width 16.7 % (11.8-14.3)
[2024-05-28 12:29] LABS: Alanine Aminotransferase 13 U/L (7-40); Albumin 4.2 g/dL (3.2-4.8); Alkaline Phosphatase 65 U/L (46-116); Anion Gap 5 (5-15); Aspartate Aminotransferase 18 U/L (13-40); BUN/Creatinine Ratio 26.2 (10.0-20.0); Calcium 10.3 mg/dL (8.7-10.4); Carbon Dioxide 29 mmol/L (20-31); Chloride 107 mmol/L (98-107); Glucose 91 mg/dL (74-106); Potassium 4.4 mmol/L (3.5-5.1); Sodium 141 mmol/L (136-145)
[2024-05-28 12:30] LABS: Bilirubin, Total 0.4 mg/dL (0.2-1.0); Blood Urea Nitrogen 28 mg/dL (9-23); Total Protein 6.2 g/dL (5.7-8.2)
[2024-05-28] MEDS: ERTAPENEM SOD INJ 1 GM in SODIUM CHL 0.9% 50 ML IV ONE (17:34)
--- NOTE | 2024-05-28 18:27 | DVHDSRES ---
Discharge Summary Date of Admission Resident Creating Document: JORGE MONTGOMERY RESIDENT May 25, 2024 at 05:15 Date of Discharge: May 28, 2024 Admitting Diagnosis Urinary tract infection COPD exacerbation Labs/Diagnostic Data: Laboratory Results Test 05/28/24 11:42 05/25/24 13:07 05/24/24 21:43 05/24/24 19:22 White Blood Count 8.0 10^3/uL (4.4-10.8) Red Blood Count 4.36 10^6/uL (4.0-5.20) Hemoglobin 13.3 g/dL (12.2-16.2) Hematocrit 39.3 % (36.0-46.0) Mean Corpuscular Volume 90.1 fL (80.0-100.0) Mean Corpuscular Hemoglobin 30.6 pg (28.0-32.0) Mean Corpuscular Hemoglobin Concent 33.9 g/dL (32.0-36.0) Red Cell Distribution Width 16.7 % (11.8-14.3) Platelet Count 234 10^3/uL (140-450) Mean Platelet Volume 8.6 fL (6.9-10.8) Neutrophils (%) (Auto) 52.0 % (37.0-80.0) Lymphocytes (%) (Auto) 31.9 % (10.0-50.0) Monocytes (%) (Auto) 14.2 % (0.0-12.0) Eosinophils (%) (Auto) 1.1 % (0.0-7.0) Basophils (%) (Auto) 0.8 % (0.0-2.0) Neutrophils # (Auto) 4.2 10 ^3/uL (1.6-8.6) Lymphocytes # (Auto) 2.6 10 ^3/uL (0.4-5.4) Monocytes # (Auto) 1.1 10 ^3/uL (0-1.3) Eosinophils # (Auto) 0.1 10 ^3/uL (0-0.8) Basophils # (Auto) 0.1 10 ^3/uL (0-0.2) Nucleated Red Blood Cells 0.1 % Sodium Level 141 mmol/L (136-145) Potassium Level 4.4 mmol/L (3.5-5.1) Chloride Level 107 mmol/L (98-107) Carbon Dioxide Level 29 mmol/L (20-31) Anion Gap 5 (5-15) Blood Urea Nitrogen 28 mg/dL (9-23) Creatinine 1.07 mg/dL (0.550-1.02) Glomerular Filtration Rate Calc 53 mL/min (>90) BUN/Creatinine Ratio 26.2 (10.0-20.0) Serum Glucose 91 mg/dL (74-106) Calcium Level 10.3 mg/dL (8.7-10.4) Total Bilirubin 0.4 mg/dL (0.2-1.0) Aspartate Amino Transferase (AST) 18 U/L (13-40) Alanine Aminotransferase (ALT) 13 U/L (7-40) Alkaline Phosphatase 65 U/L (46-116) Total Protein 6.2 g/dL (5.7-8.2) Albumin 4.2 g/dL (3.2-4.8) Differential Total Cells Counted 100.0 (100) Neutrophils % (Manual) 75 (37.0-80.0) Band Neutrophils % (Manual) 2 Lymphocytes % (Manual) 20 (10.0-50.0) Monocytes % (Manual) 3 (0-12) Eosinophils % (Manual) 0 (0-7) Basophils % (Manual) 0 (0.0-2.0) Metamyelocytes % (manual) 0 Myelocytes % (Manual) 0 Promyelocytes % (Manual) 0 Blast Cells % (Manual) 0 Reactive Lymphocytes 0 Platelet Estimate Adequate Troponin I High Sensitivity 27 ng/L (</=34) Urine Color Yellow (Yellow) Urine Clarity Clear (Clear) Urine pH 5.0 (5.0-9.0) Urine Specific [place] 1.019 (1.001-1.035) Urine Protein Negative (Negative) Urine Ketones Trace (Negative) Urine Blood Negative /uL (Negative) Urine Nitrite Negative (Negative) Urine Bilirubin Negative (Negative) Urine Urobilinogen Normal mg/dL (Negative) Urine Leukocyte Esterase 2+ /uL (Negative) Urine RBC 5 /hpf (0 - 4) Urine WBC 10 /hpf (0 - 5) Urine Squamous Epithelial Cells Few /hpf (<5) Urine Bacteria None seen /hpf (None Seen) Urine Hyaline Casts Many /lpf (0 - 2) Urine Mucus Few (None Seen) Urine Glucose Normal mg/dL (Normal) Test 05/24/24 18:13 05/24/24 17:54 05/24/24 00:00 Lactic Acid Level 1.4 mmol/L (0.4-2.0) B-Type Natriuretic Peptide 490.78 pg/mL (0-100) Influenza Type A Antigen Negative (Negative) Influenza Type B Antigen Negative (Negative) SARS-CoV-2 Antigen (Rapid) Negative (NEGATIVE) Other Laboratory Tests 05/28/24 11:42 Brief Hx & Hospital Course: Hospital Course: 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 She also reported mild lower abdominal pain with burning urination but denied fever, chills, motor weakness, or dizziness. Her past surgeries include ovarian mass resection, hysterectomy, appendectomy, CAD post-CABG, and tonsillectomy. Hemodynamically stable, she requested more pain medication, showing possible pain-seeking behavior. Urine culture revealed ESBL E. Coli and Proteus, sensitive to Ertapenem, requiring 14 days of IV antibiotics. She was given her home dose of pain medication and informed of discharge plans. Medical conditions treated in hospital: #Acute COPD exacerbation: on 4 L home oxygen #HFrEF (Heart failure with reduced ejection fraction) - LVEF was around 10% noted in 11/22/2023 #Acute on chronic hypoxic respiratory failure #CAD, history of CABG and PTCA with 6 stents #LENORA: likely due to questionable vasomotor nephropathy on CKD 3A #Facial numbness: rule out [id number] CT scan of head and carotid ultrasound for possible CVA. Follow with urine culture as well. #Urinary tract infection ESBL E Coli and Proteus positive. #Biotronik of AICD: Atrial-sensed ventricular-paced rhythm #History of chronic recurrent UTI #History of Parkinsonism , baseline wheelchair-bound #Dyslipidemia : continue statin. #History of GERD: continue PPI #chronic kidney disorder stage III #history of diverticulosis # senior care resident # vitamin-D deficiency # acute on acute abdominal pain # nonspecific neurological symptoms # Opioid seeking behaviour PCP Follow up: Dr. Jackson/ Marco A Conrado to follow up in 1-2 weeks of discharge. Specialist Relevant To Admission Follow up: Professor Of Rhetoric Dr. Lebron / Dr. Claudio for HFrEF 10% EF. Medications: [facility] approval for SNF discharge with 14 days of Invanz via [facility]. Wheelchair-bound. SW input appreciated. The patient will go back to [facility] after the IV antibiotics. Patient care and plan discussed with Dr. Navarro. Discharge planning needed total 41 minutes of detailed discussion. Patient agreed with the plans. Consults/Reason for consult Cardiology Operations or Procedures [place] [address] Ph: [phone] DIAGNOSTIC IMAGING Diagnostic Imaging Report : [id number] Signed PATIENT: MONICA SCOTT ACCT: [id number] UNIT: [id number] : 1945 LOC: [facility] ROOM / BED: [address] [place] [address] AGE / SEX: 78 / F ADM STATUS: ADM IN SERVICE 0 ORDERING PHYSICIAN: STEFFANY MIJARES RESIDENT PROCEDURE(s): CARCL - CAROTID DUPLX W COLOR DOP REASON: Carotid stenosis? ORDER NUMBER(s): [id number], ACCESSION NUMBER(s): [id number] Carotid Duplex Clinical History: Carotid stenosis Comparison: None Technique: Duplex Doppler evaluation of the extracranial carotid and vertebral arteries including color Doppler and spectral/pulsed waveform analysis was performed. Findings: RIGHT SIDE: The peak systolic velocities are 70 cm/s in the CCA, 100 cm/s in the ICA. The ICA/CCA ratio is 1.4. The external carotid artery is patent with peak systolic velocity of 108 cm/s proximally. There is appropriate antegrade flow in the right vertebral artery. LEFT SIDE: The peak systolic velocities are 77 cm/s in the CCA, 94 cm/s in the ICA. The ICA/CCA ratio is 1.2. The external carotid artery is patent with peak systolic velocity of 96 cm/s proximally. There is appropriate antegrade flow in the left vertebral artery. IMPRESSION: No hemodynamically significant stenosis noted in the right carotid system. No hemodynamically significant stenosis noted in the left carotid system. Reference: Radiology 2003; 229:340-346 Normal ICA PSV is <125 cm/sec and no plaque or intimal thickening is visible sonographically additional criteria include ICA/CCA PSV ratio <2.0 and ICA EDV <40 cm/sec <50% ICA stenosis ICA PSV is <125 cm/sec and plaque or intimal thickening is visible sonographically additional criteria include ICA/CCA PSV ratio <2.0 and ICA EDV <40 cm/sec 50-69% ICA stenosis ICA PSV is 125-230 cm/sec and plaque is visible sonographically additional criteria include ICA/CCA PSV ratio of 2.0-4.0 and ICA EDV of 40-100 cm/sec 70% ICA stenosis but less than near occlusion ICA PSV is >230 cm/sec and visible plaque and luminal narrowing are seen at obrien-scale and color Doppler ultrasound (the higher the Doppler parameters lie above the threshold of 230 cm/sec, the greater the likelihood of severe disease) additional criteria include ICA/CCA PSV ratio >4 and ICA EDV >100 cm/sec ATED BY: RHETT HUNTER MD DICTATED DATE/TIME: 05/25/24952 SIGNED BY: RHETT HUNTER MD SIGNED DATE/TIME: 05/25/24952 CC: [place] [address] Ph: [phone] DIAGNOSTIC IMAGING Diagnostic Imaging Report : [id number] Signed PATIENT: MONICA SCOTT ACCT: [id number] UNIT: [id number] : 1945 LOC: ER ROOM / BED: / AGE / SEX: 78 / F ADM STATUS: REG ER SERVICE 4 ORDERING PHYSICIAN: STEFFANY MIJARES RESIDENT PROCEDURE(s): HWOCT - HEAD WITHOUT CONTRAST REASON: facial numbness ORDER NUMBER(s): [id number], ACCESSION NUMBER(s): [id number] EXAM: CT HEAD WITHOUT CONTRAST INDICATION: facial numbness TECHNIQUE: CT of the head without intravenous contrast. Radiation Dose : 1. Head: CT Dose: CTDI volume is 53.5 mGy. Dose-length product is 750.77 mGy*cm The dose indicators for CT are the volume Computed Tomography (CT) Dose Index (CTDIvol) and the Dose Length Product (DLP), and are measured in units of mGy and mGy-cm, respectively. These indicators are not patient dose, but values generated from the CT scanner acquisition factors. The report includes radiation exposure data for exposures received during this examination. COMPARISON: CT HEAD WITHOUT CONTRAST on DOS: 02/17/24, CT CHEST WITHOUT CONTRAST on DOS: 09/13/23, HEAD WITHOUT CONTRAST on DOS: 04/08/22 FINDINGS: There is no evidence of acute intracranial hemorrhage, extra-axial collection, mass effect, midline shift, herniation or hydrocephalus. The ventricles, sulci and cisterns are age appropriate. The obrien-white differentiation is intact. Chronic encephalomalacia in the high posterior right frontal lobe. The visualized paranasal sinuses and mastoid air cells are clear. The surrounding soft tissues and osseous structures are unremarkable. IMPRESSION: No acute intracranial abnormality. Radiation optimization: All CT scans at this facility use at least one of these dose optimization techniques: automated exposure control mA and/or kV adjustment per patient size (includes targeted exams where dose is matched to clinical indication) or iterative reconstruction. ATED BY: RHETT HUNTER MD DICTATED DATE/TIME: 05/25/24540 SIGNED BY: RHETT HUNTER MD SIGNED DATE/TIME: 05/25/24540 CC: [place] [address] Ph: [phone] DIAGNOSTIC IMAGING Diagnostic Imaging Report : [id number] Signed PATIENT: MONICA SCOTT ACCT: [id number] UNIT: [id number] : 1945 LOC: ER ROOM / BED: / AGE / SEX: 78 / F ADM STATUS: REG ER SERVICE 6645 ORDERING PHYSICIAN: BRANDO SANCHEZ MD PROCEDURE(s): CXRP - CHEST PORTABLE REASON: weakness ORDER NUMBER(s): [id number], ACCESSION NUMBER(s): [id number] CHEST RADIOGRAPH Indication: weakness Technique: Single frontal view of the chest was obtained Comparison: XY CHEST PORTABLE on DOS: 05/03/24, XY CHEST XRAY 1 VIEW on DOS: 04/29/24, XY CHEST PORTABLE on DOS: 03/19/24 FINDINGS: Lines and Tubes: Left-sided approach biventricular lead AICD with intact leads. Lungs: No focal consolidation. Mild interstitial prominence. Pleura: No effusion. No pneumothorax. Cardiomediastinal contours: Unremarkable. Midline sternotomy wires are noted. Bones: No acute osseous abnormality. IMPRESSION: Mild pulmonary vascular congestion. ATED BY: ARELIS MOROCHO DO DICTATED DATE/TIME: 05/24/241847 SIGNED BY: ARELIS MOROCHO DO SIGNED DATE/TIME: 05/24/241847 CC: [place] [address] Ph: [phone] DIAGNOSTIC IMAGING Diagnostic Imaging Report : [id number] Signed PATIENT: MONICA SCOTT ACCT: [id number] UNIT: [id number] : 1945 LOC: [facility] ROOM / BED: [address] [place] [address] A AGE / SEX: 78 / F ADM STATUS: ADM IN SERVICE 1005 ORDERING PHYSICIAN: JORGE MONTGOMERY RESIDENT PROCEDURE(s): ECIDC - ECHO 2D MODE CARDIAC DOP REASON: HFrEF 10% EF > 6 months. ORDER NUMBER(s): [id number], ACCESSION NUMBER(s): [id number] APPROVED REPORT EXAM: Two-dimensional and M-mode echocardiogram with Doppler and color Doppler. Blood Pressure: 102/52 mmHg INDICATION HFrEF 10% EF > 6 MONTHS RISK FACTORS Obesity: Height: 5'4, Weight: 163 DIMENSIONS LVDd 6.5 (3.8-5.7cm) LA (2D) 3.7 (1.9-4.0cm) Aortic Root 2.9 (2.0- 3.7cm) LVDs 5.9 (2.5-4.0cm) LA (MM) (1.9-4.0cm) Aortic Cusp Exc 1.3 (1.5- 2.0cm) EF (%) 18.0 (55-70%) Rt. Atrium 3.8 (1.9-4.0cm) Asc. Aorta cm IVSd 0.9 (0.7-1.1cm) RV (D) (1.8-2.4cm) PWd 0.8 (0.7-1.1cm) Mitral Valve Mitral Mitral Stenosis E wave 0.47m/s MV Mean GR. mmHg A wave 1.15m/s MV Peak GR. 107mmHg E/A ratio 0.4 2D MVA cm2 DECEL Time 173ms PRESS 1/2 Time ms Aortic Valve Aortic Valve Aortic Stenosis V1 0.90m/s AO Mean GR. 4mmHg V2 1.31m/s AO Peak GR. 7mmHg LVOT Diameter 2.3 (1.8-2.4cm) Doppler GULSHAN 2.85cm2 Pulmonic Valve V2 1.02m/s Conclusion Left ventricle: Left ventricle was dilated with significantly reduced systolic function. LVEF was 15-20%. Diffuse hypokinesis of left ventricle with regional variation was seen. Abnormal relaxation of left ventricular diastolic function was observed. Right ventricle revealed reduced systolic function. Mild biatrial enlargement was seen. Pacing wire was seen in the right-sided chambers. Aortic valve was not well visualized. There was no aortic insufficiency/stenosis. There was mild mitral regurgitation. There was no tricuspid regurgitation. As there was no good tricuspid regurgitation jet, right ventricular systolic pressure could not be estimated. Pulmonary valve was not well visualized. There was no pericardial effusion. SIGNED BY: RODRIGUEZ LEBRON MD SIGNED DATE/TIME: 05/26/24 1500 CC: EKG Name: MONICA SCOTT Acct: [id number] [place] [address] ELECTROCARDIOGRAM REPORT PATIENT: MONICA SCOTT ACCT: [id number] : 1945 LOC: [facility] ROOM / BED: [facility] / A AGE / SEX: 78 / F ADM STATUS: ADM IN SERVICE 1532 UNIT: [id number] ORDERING PHYSICIAN: ER PROCEDURE(s): EKG - ELECTROCARDIGRAM ORDER NUMBER(s): [id number], ACCESSION NUMBER(s): [id number] [facility] Test Date: 2024-05-24 Test Time: 15:24:04 Pat Name: MONICA SCOTT Department: er Room: [facility] 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 DICTATED BY:PATTY LUU MD DICTATED DATE/TIME:05/24/24 1524 ELECTRONICALLY SIGNED BY:PATTY LUU MD 05/25/247 ELECTRONICALLY CO-SIGNED BY: Condition at Discharge: Guarded Final Diagnosis/Problems List #Acute COPD exacerbation: on 4 L home oxygen #HFrEF (Heart failure with reduced ejection fraction) - LVEF was around 10% noted in 11/22/2023 #Acute on chronic hypoxic respiratory failure #CAD, history of CABG and PTCA with 6 stents #LENORA: likely due to questionable vasomotor nephropathy on CKD 3A #Facial numbness: rule out [id number]-[id number] CT scan of head and carotid ultrasound for possible CVA. Follow with urine culture as well. #Urinary tract infection ESBL E Coli and Proteus positive. #Biotronik of AICD: Atrial-sensed ventricular-paced rhythm #History of chronic recurrent UTI #History of Parkinsonism , baseline wheelchair-bound #Dyslipidemia : continue statin. #History of GERD: continue PPI #chronic kidney disorder stage III #history of diverticulosis # senior care resident # vitamin-D deficiency # acute on acute abdominal pain # nonspecific neurological symptoms # Opioid seeking behaviour Discharge Disposition: Alf Facility Discharge Instruct/Medications Diet: Cardiac 2g Na,low cholest Diet comment: 1.2 L / 24 hour fluid restriction Activity: No Restrictions, As Tolerated Follow Up/Referral: Please follow up with PCP in 1-2 weeks of discharge. Please follow up with Dr. Tidwell / Dr. Allan for cardiology follow up. Medications: as per MAR. 1 gm daily invanz via picc line for total 14 days starting from 05/27/2024-06/09/2024 Discharge Statement: "Patient was advised to return to the ER or call 911 if any headaches, dizziness, shortness of breath, chest pain, abdominal pain, bleeding, fevers, or worsening of medical condition. Patient was counseled about treatment plan, medications, possible side effects, patientverbalized understanding. All questions were answered to the best of my ability. This discharge took greater then 30 minutes in planning, reviewing documentation, counseling the patient, and discussing with other team members." ASSESSMENT ASSESSMENT Assessment #Acute COPD exacerbation: on 4 L home oxygen #HFrEF (Heart failure with reduced ejection fraction) - LVEF was around 10% noted in 11/22/2023 #Acute on chronic hypoxic respiratory failure #CAD, history of CABG and PTCA with 6 stents #LENORA: likely due to questionable vasomotor nephropathy on CKD 3A #Facial numbness: rule out [id number]-mqosrt-cy CT scan of head and carotid ultrasound for possible CVA. Follow with urine culture as well. #Urinary tract infection ESBL E Coli and Proteus positive. #Biotronik of AICD: Atrial-sensed ventricular-paced rhythm #History of chronic recurrent UTI #History of Parkinsonism , baseline wheelchair-bound #Dyslipidemia : continue statin. #History of GERD: continue PPI #chronic kidney disorder stage III #history of diverticulosis # senior care resident # vitamin-D deficiency # acute on acute abdominal pain # nonspecific neurological symptoms # Opioid seeking behaviour JORGE MONTGOMERY RESIDENT May 28, 2024 18:27
[2024-05-29] VITALS (11 sets, daily range): BP systolic 125–147; BP diastolic 66–78; PULSE 51–96; RESP 16–19; TEMP 97.6–98; O2SAT 92–99
--- NOTE | 2024-05-29 07:31 | DVHPN2 ---
Progress Note - Dictate Date Seen: May 29, 2024 Has the PT tested + for MRSA If YES, has PT been informed?: No Medical Necessity Reason Pt with a Central, PICC or Fol: No vital signs Vital Sign Date Time Temp Pulse Resp B/P (MAP) Pulse Ox O2 Delivery O2 Flow Rate FiO2 05/29/24 06:43 68 05/29/24 06:36 16 98 05/29/24 06:36 Nasal Cannula* 3 32 05/29/24 01:00 127/66 05/29/24 01:00 97.7 97.7 Total Intake and Output 05/28/24 05/28/24 05/29/24 15:00 23:00 07:00 Intake Total 1050 ml 675 ml Balance 1050 ml 675 ml medications Current Medications Medications Dose Ordered Sig/Asha Route Start Time Stop Time Status Last Admin Dose Admin Nitroglycerin 0.4 mg Q5MINP PRN SL 05/25/24 05:15 Morphine Sulfate 2 mg Q30M PRN IV 05/25/24 05:15 05/25/24 16:08 2 MG Methylprednisolone Sodium Succinate 40 mg DAILY IV 05/26/24 10:00 05/28/24 10:58 40 MG Albuterol 1.25 mg Q4HR NEB 05/25/24 06:00 05/29/24 06:37 1.25 MG Ipratropium [place] 0.5 mg Q4HPRN PRN NEB 05/25/24 05:30 05/29/24 06:36 0.5 MG Aspirin 81 mg DAILY PO 05/26/24 10:00 05/28/24 10:59 81 MG Carvedilol 3.125 mg Q12HR PO 05/25/24 22:00 05/28/24 21:33 3.125 MG Ranolazine 500 mg BID PO 05/25/24 22:00 05/28/24 21:36 500 MG Levofloxacin/ Dextrose 100 ml @ 100 mls/hr Q48H IV 05/26/24 10:00 UNV Atorvastatin Calcium 20 mg HS PO 05/25/24 22:00 05/28/24 21:32 20 MG Enoxaparin Sodium 40 mg DAILY SC 05/25/24 10:00 05/28/24 11:01 40 MG Pantoprazole Sodium 40 mg DAILY IV 05/25/24 10:00 05/28/24 10:59 40 MG Furosemide 20 mg DAILY IV 05/25/24 10:00 05/28/24 10:59 20 MG Clopidogrel Bisulfate 75 mg DAILY PO 05/26/24 10:00 05/28/24 11:01 75 MG Ondansetron HCl 4 mg Q6HPRN PRN IV 05/26/24 16:30 Hold Metoclopramide HCl 5 mg Q8HR IV 05/27/24 23:59 05/29/24 05:45 5 MG Oxycodone/ Acetaminophen 1 tab Q4HP PRN PO 05/28/24 00:00 05/29/24 02:57 1 TAB Ertapenem 1 gm DAILY IV 05/28/24 10:45 Cancel Ertapenem 1 gm/ Sodium Chloride 50 ml @ 100 mls/hr DAILY IV 05/29/24 10:00 laboratory and microbiology Laboratory Tests 05/28/24 11:42 Test 05/28/24 11:42 Range/Units Serum Glucose 91 74-106 mg/dL Assessment/Plan Patient is a 78-year-old female who presented to the hospital with few days of atypical chest discomfort/left jaw numbness and left upper extremity numbness. She also had been experiencing dysuria and diarrhea. Patient has poor functional capacity. Chest discomforts been pleuritic. Cardiology was involved for cardiac aspects of care. Patient is known to our practice from before and outside. Last interrogation of the ICD in the office was on April 06, 2024. Does have old history of multiple cardiac problems. She had cardiac catheterization in September 2020. She does has have baseline of systolic/ischemic cardiomyopathy. She was and repeated admissions for the same symptomatology. She likes her pain medications. Lying comfortably flat in bed, no JVD, pink and wet mucosa, no carotid bruit, no goiter, lungs: Not using accessory muscles of breathing, lungs reveal scattered rhonchi, cardiac: Regular regular, no thrill/gallop, 2+murmur in apex, abdomen: Soft, no hepatomegaly, some suprapubic and upper epigastric tenderness is positive, no rebound tenderness, extremities: No edema, dorsalis pedis is 2+ bilateral Past medical history includes hypertension, hyperlipidemia, coronary artery disease, history of CABG (2010), systolic heart failure, ischemic cardiomyopathy, gout, kidney stone, s/p ESWL, frequent UTI, history of CVA, Diverticulosis, COPD, s/p COVID, depression, Anxiety, GERD, history of appendectomy/hysterectomy/tonsillectomy, and history of BiV ICD (Biotronik) implantation. She is chronically wheelchair-bound. She was previously in hospice for heart failure. She is allergic to codeine. She quit smoking years ago. She is DNR. She also has diagnosis of parkinsonism. Cardiac catheterization of September 2020 revealed ejection fraction of 20%, SECONDARY [employer]UC[employer]ER of SVG to diagonal, patent TAN, patent SVG to OM, patent SVG to PDA and SECOND[employer] EDUC[employer] TE[employer]ER of RCA. Echocardiogram of November 22, 2023 revealed: Dilated left ventricle, LVEF of 10%, pacing wire and right-sided chambers, mild mitral regurgitation. Echocardiogram of August 28, 2023 revealed: Dilated left ventricle with significantly reduced systolic function. LVEF of 20%. Elevated LVEDP, dilated four chambers. Pacing wire was seen in right-sided chamber. [id number] MR. Echocardiogram of January 03, 2023 revealed ejection fraction of 20 to 25% and mild left ventricular enlargement Echocardiogram of March 25, 2023 (performed in the office) revealed four- chamber dilatation, LVEF of 20 to 25%, mild to moderate MR, mild TR, trace pulmonary valve insufficiency and right ventricular systolic pressure of 35 mmHg Echocardiogram of March 21, 2022 revealed ejection fraction of around 20%, mild MR/TR Echocardiogram of February 17, 2021 revealed dilated LV, LVEF around 25%, severe diffuse hypokinesis, increased LVEDP, dilated left and right atria, mild to moderate MR, mild TR. Echocardiogram of December 30, 2020 reported ejection fraction less than 20% and dilated left atrium. Echocardiogram of August 2020 revealed ejection fraction less than 25%, right atrial enlargement, left atrial enlargement and moderate MR. Creatinine: 1.26 - 1.44 - 1.34 - 1.19 - 1.07 Potassium: 4.4 - 4.3 - 3.8 - 4.5 - 4.4 BNP: 490.78 Troponin (high sensitive): Chest x-ray revealed: IMPRESSION: Mild pulmonary vascular congestion. CT of the head revealed: IMPRESSION: No acute intracranial abnormality. Carotid duplex revealed: IMPRESSION: No hemodynamically significant stenosis noted in the right carotid system. No hemodynamically significant stenosis noted in the left carotid system. EKG shows a sensed, V paced rhythm Tele shows sinus rhythm, V paced Echocardiogram reported: Left ventricle: Left ventricle was dilated with significantly reduced systolic function. LVEF was 15-20%. Diffuse hypokinesis of left ventricle with regional variation was seen. Abnormal relaxation of left ventricular diastolic function was observed. Right ventricle revealed reduced systolic function. Mild biatrial enlargement was seen. Pacing wire was seen in the right-sided chambers. Aortic valve was not well visualized. There was no aortic insufficiency/stenosis. There was mild mitral regurgitation. There was no tricuspid regurgitation. As there was no good tricuspid regurgitation jet, right ventricular systolic pressure could not be estimated. Pulmonary valve was not well visualized. There was no pericardial effusion. [employer] Interrogation: Battery status: MOS1; Remaining Battery: 67%; DDDR/BiV: 70/130; Sensing: A3.1/RV14.5/LV8.1 mV; Pacing threshold: A0.7/RV1.2/LV3.5 V; Pacing impedance: A560/RV462/LV638 Ohm; Shock impedance: RV81 Ohm; Atrial burden: 0.0%; Pacing A/LV/BiV/KNIFER UP: 23/06/96/97%; No specific episodes Normal Functioning BiV-ICD Patient is a 78-year-old female coming from nursing facility presented for pleuritic chest pain, numbness of the left side. Does have rhonchi in the lungs. Presentation questions URI/bronchitis/COPD exacerbation. Troponin has been negative. Presentation is not considered acute coronary syndrome She does have an ICD which was interrogated last in 2023. Does have baseline history of ischemic/systolic heart failure which at this point is considered compensated. She is DNR. She did have ischemic work-up/cardiac catheterization in September 2020 with the above findings. At this point no ischemic work-up is indicated. Chest pain, atypical Bronchitis/URI COPD exacerbation Ischemic cardiomyopathy, history of Coronary artery disease, status post CABG Diverticular disease Renal calculi Emphysema Kidney stone, history of Coronary artery disease, SP CABG GERD Hypertension Hyperlipidemia Gout Constipation UTI Cardiac suggestion for management: Manage on telemetry Follow-up electrolytes and kidney function tests and correct abnormalities No indication for ischemic work up at this point Continue Aspirin/Plavix Management of URI/bronchitis/COPD exacerbation as per primary team/pulmonology. Cardiac monge is stable and can be followed as outpatient. Further evaluation and management depends on the above and clinical course A total of 55 minutes was spent reviewing the patient record, examining the patient, making a diagnostic and therapeutic plan, discussing this plan with medical personnel, following up on diagnostic studies and following the patient for clinical stability excluding any and all procedures. At least 50% of this time was spent in direct, [id number] contact. Thank you for allowing me to participate in this patient's care. Further recommendations will depend on patient's clinical course. Please do not hesitate to contact me if you have any questions or concerns. This medical document was created using electronic medical record system with [employer] computerized dictation system. Although this document has been carefully reviewed, there may still be some phonetic and typographical errors. These areas are purely typographical due to the imperfection of the software programs, and do not reflect any compromise in the patient's medical care. Plan discussed with: Patient, Other (nurse) RODRIGUEZ LEBRON MD May 29, 2024 07:31
[2024-05-29] MEDS: ERTAPENEM SOD INJ 1 GM in SODIUM CHL 0.9% 50 ML IV SCH (10:06)
--- NOTE | 2024-05-29 13:53 | DVHPNRES ---
Progress Note Date Seen: May 29, 2024 Resident Creating Document: JORGE MONTGOMERY RESIDENT Has the PT tested + for MRSA If YES, has PT been informed?: No Medical Necessity Reason Pt with a Central, PICC or Fol: No Subjective Review of Systems Patient was supposed to go to the SNF but had difficulty in transport, transfers was held for another day. Patient remained overnight hemodynamically stable, today discharge in p.m.. Patient reports: No new complaints Changes from previous H/P or p: No Changes, Changes Objective vital signs Vital Sign Date Time Temp Pulse Resp B/P (MAP) Pulse Ox O2 Delivery O2 Flow Rate FiO2 05/29/24 12:51 98.0 61 17 125/71 (89) 97 98.0 05/29/24 10:42 Nasal Cannula 3.0 05/29/24 10:42 32 Total Intake and Output 05/28/24 05/28/24 05/29/24 15:00 23:00 07:00 Intake Total 1050 ml 675 ml Balance 1050 ml 675 ml medications Current Medications Medications Dose Ordered Sig/Asha Route Start Time Stop Time Status Last Admin Dose Admin Nitroglycerin 0.4 mg Q5MINP PRN SL 05/25/24 05:15 Morphine Sulfate 2 mg Q30M PRN IV 05/25/24 05:15 05/25/24 16:08 2 MG Methylprednisolone Sodium Succinate 40 mg DAILY IV 05/26/24 10:00 05/29/24 10:06 40 MG Albuterol 1.25 mg Q4HR NEB 05/25/24 06:00 05/29/24 10:41 1.25 MG Ipratropium [place] 0.5 mg Q4HPRN PRN NEB 05/25/24 05:30 05/29/24 10:42 0.5 MG Aspirin 81 mg DAILY PO 05/26/24 10:00 05/29/24 10:05 81 MG Carvedilol 3.125 mg Q12HR PO 05/25/24 22:00 05/29/24 10:05 3.125 MG Ranolazine 500 mg BID PO 05/25/24 22:00 05/29/24 10:04 500 MG Levofloxacin/ Dextrose 100 ml @ 100 mls/hr Q48H IV 05/26/24 10:00 UNV Atorvastatin Calcium 20 mg HS PO 05/25/24 22:00 05/28/24 21:32 20 MG Enoxaparin Sodium 40 mg DAILY SC 05/25/24 10:00 05/29/24 10:07 40 MG Pantoprazole Sodium 40 mg DAILY IV 05/25/24 10:00 05/29/24 10:05 40 MG Furosemide 20 mg DAILY IV 05/25/24 10:00 05/29/24 10:05 20 MG Clopidogrel Bisulfate 75 mg DAILY PO 05/26/24 10:00 05/29/24 10:04 75 MG Ondansetron HCl 4 mg Q6HPRN PRN IV 05/26/24 16:30 Hold Metoclopramide HCl 5 mg Q8HR IV 05/27/24 23:59 05/29/24 13:36 5 MG Oxycodone/ Acetaminophen 1 tab Q4HP PRN PO 05/28/24 00:00 05/29/24 12:27 1 TAB Ertapenem 1 gm DAILY IV 05/28/24 10:45 Cancel Ertapenem 1 gm/ Sodium Chloride 50 ml @ 100 mls/hr DAILY IV 05/29/24 10:00 05/29/24 10:06 100 MLS/HR Examination GENERAL:Normal, HEENT:Normal, NECK:Normal, LUNGS:Normal, CVS:Normal, ABDOMEN:Normal (Patient mentions bilateral lower abdominal pain, CVA angle tenderness cefepime on left side,), SKIN:Normal, NEURO:Abnormal (Bilateral patient has strength 2/ 5, patient has baseline parkinsonism has difficulty of walk has wheelchair bound.) laboratory and microbiology Laboratory Tests 05/28/24 11:42 Test 05/28/24 11:42 Range/Units Serum Glucose 91 74-106 mg/dL Microbiology Date/Time Source Procedure Growth Status 05/25/24 07:30 Urine - Midstream Clean Catch Urine Culture - Final Escherichia coli - ESBL Proteus mirabilis Complete Labs and/or images reviewed: Labs reviewed by me, Image(s) reviewed by me Problem List/Assessment/Plan Problem List/Assessment/Plan Hospital Course: 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 She also reported mild lower abdominal pain with burning urination but denied fever, chills, motor weakness, or dizziness. Her past surgeries include ovarian mass resection, hysterectomy, appendectomy, CAD post-CABG, and tonsillectomy. Hemodynamically stable, she requested more pain medication, showing possible pain-seeking behavior. Urine culture revealed ESBL E. Coli and Proteus, sensitive to Ertapenem, requiring 14 days of IV antibiotics. She was given her home dose of pain medication and informed of discharge plans. Patient remained in hospital overnight, on IV antibiotics hemodynamically stable ready to discharge this afternoon. Medical conditions treated in hospital: #Acute COPD exacerbation: on 4 L home oxygen #HFrEF (Heart failure with reduced ejection fraction) - LVEF was around 10% noted in 11/22/2023 #Acute on chronic hypoxic respiratory failure #CAD, history of CABG and PTCA with 6 stents #LENORA: likely due to questionable vasomotor nephropathy on CKD 3A #Facial numbness: rule out [id number] CT scan of head and carotid ultrasound for possible CVA. Follow with urine culture as well. #Urinary tract infection ESBL E Coli and Proteus positive. #Biotronik of AICD: Atrial-sensed ventricular-paced rhythm #History of chronic recurrent UTI #History of Parkinsonism , baseline wheelchair-bound #Dyslipidemia : continue statin. #History of GERD: continue PPI #chronic kidney disorder stage III #history of diverticulosis # [facility] resident # vitamin-D deficiency # acute on acute abdominal pain # nonspecific neurological symptoms # Opioid seeking behaviour PCP Follow up: Dr. Jackson/ Marco A Camp to follow up in 1-2 weeks of discharge. Specialist Relevant To Admission Follow up: Terminal Supervisor Dr. Mercado / Dr. Claudio for HFrEF 10% EF. Medications: [facility] approval for SNF discharge with 14 days of Invanz via [facility]. Wheelchair-bound. SW input appreciated. The patient will go back to [facility] after the IV antibiotics. Patient care and plan discussed with Dr. Navarro. Discharge planning needed total 41 minutes of detailed discussion. Patient agreed with the plans. Code status: Full, 27 minutes of complex discussion. Plan discussed with: Patient, Other My Orders My Orders Orders - JORGE MONTGOMERY RESIDENT Procedure Category Date Status Time Ertapenem Sod Inj PHA 05/29/24 In Process (Invanz) 10:00 Discharge DISCHARGE 05/29/24 Transmitted 17:56 Date of Service: May 29, 2024 Billing Provider: DELFINO VICENTE MD Common Visit Codes: [id number] INP/OBS CARE(HIGH) JORGE MONTGOMERY RESIDENT May 29, 2024 13:53 DELFINO VICENTE MD Jun 03, 2024 09:03
== END 2024-05-29 14:20 | DRG 682 ==
LOC: EDBD 15:13 → ER 15:13 → TELE 05-25 05:15 → TELE-WESTW 05-25 15:15 → WEST WING 05-27 10:18
PROVIDERS: ADMIT Student in an Organized Health Care Education/Training Program; ATTEND Student in an Organized Health Care Education/Training Program
PROC: 05HF33Z Insertion of Infusion Device into Left Cephalic Vein, Percutaneous Approach (ICD-10-PCS; principal; 2024-05-26)
PROC: B54NZZA Ultrasonography of Left Upper Extremity Veins, Guidance (ICD-10-PCS; 2024-05-26)
PROC: 4B02XSZ Measurement of Cardiac Pacemaker, External Approach (ICD-10-PCS; 2024-05-28)
DX: N17.0 Acute kidney failure with tubular necrosis (principal); I50.23 Acute on chronic systolic (congestive) heart failure; J96.21 Acute and chronic respiratory failure with hypoxia; I13.0 Hypertensive heart and chronic kidney disease with heart failure and stage 1 through stage 4 chronic kidney disease, or unspecified chronic kidney disease; J44.1 Chronic obstructive pulmonary disease with (acute) exacerbation; N39.0 Urinary tract infection, site not specified; Z66 Do not resuscitate; E78.5 Hyperlipidemia, unspecified; G20.C Parkinsonism, unspecified; I25.10 Atherosclerotic heart disease of native coronary artery without angina pectoris; I25.5 Ischemic cardiomyopathy; J06.9 Acute upper respiratory infection, unspecified; J43.9 Emphysema, unspecified; K21.9 Gastro-esophageal reflux disease without esophagitis; K59.00 Constipation, unspecified; M10.9 Gout, unspecified; E55.9 Vitamin D deficiency, unspecified; N18.31 Chronic kidney disease, stage 3a; Z99.3 Dependence on wheelchair; Z95.1 Presence of aortocoronary bypass graft; Z90.49 Acquired absence of other specified parts of digestive tract; Z86.73 Personal history of transient ischemic attack (TIA), and cerebral infarction without residual deficits; Z90.710 Acquired absence of both cervix and uterus; Z95.810 Presence of automatic (implantable) cardiac defibrillator; Z88.5 Allergy status to narcotic agent; Z87.442 Personal history of urinary calculi; Z87.891 Personal history of nicotine dependence; Z83.3 Family history of diabetes mellitus; Z86.16 Personal history of COVID-19; Z79.899 Other long term (current) drug therapy; Z79.82 Long term (current) use of aspirin; Z79.02 Long term (current) use of antithrombotics/antiplatelets; Z82.49 Family history of ischemic heart disease and other diseases of the circulatory system
CPT/HCPCS: 36415; 70450; 71045; 80053; 81001; 83605; 83880; 84484; 85007; 85025; 85027; 87086; 87088; 87186; 87426; 87804; 93005; 93306; 93886; 94640; G0378; J1335; J1956; J2185; J2405; J2470; J3490

== ENCOUNTER 2024-06-18 12:04 | Inpatient (IN) | payer OTHER, MEDICAID ==
[~2024-06-18] VITALS: Ht 167.6 cm; Wt 75.6 kg
--- NOTE | 2024-06-18 13:03 | ED.PDOC ---
General HPI Comments 78 year old female presents to the ED with chief complaint of UTI. Patient reports that 3 weeks ago she was diagnosed with ESBL UTI and needed antibiotics infusions at [facility]. Patient relays that she has continued to have symptoms of abdominal pain, flank pain, and dysuria since finishing her course of antibiotics and was advised to come into the ED by [facility] for further treatment. Patient states that she had done a urinanlysis and urine culture, but her results have not come back yet. Patient denies any N/V/D, dizziness, fever, chills, or chest pain. Chief Complaint: Urinary Time Seen by MD: 13:02 Primary Care Provider: HORTENCIA Reviewed notes: Nurses Notes, Medications, Allergies Allergies: Coded Allergies: Ceftriaxone (Verified Allergy, Intermediate, generalized rash, 11/08/22) SECURITY AUDITORCARLENE MEJIA Codeine (Verified Allergy, Unknown, 09/01/20) Hydrocodone (Verified Allergy, Unknown, rash, 05/18/23) tylenol is okay per patient Home Meds Active Scripts Duloxetine Hydrochloride (Duloxetine Hydrochloride) 30 Mg Cap, 30 MG PO DAILY for 30 Days, #30 CAP Prov:WINSOME GOMEZ MD 04/29/24 Phenazopyridine HCl (Phenazopyridine Hydrochlo) 200 Mg Tab, 200 MG PO TID for 3 Days, #9 TAB Prov:NIRALI MARTINO RESIDENT 04/10/24 Primidone (MYSOLINE TABLET) 50 Mg Tb, 25 MG PO HS for 30 Days, #15 TAB Prov:NIRALI MARTINO RESIDENT 04/10/24 Clopidogrel Bisulfate (CLOPIDOGREL) 75 Mg Tab, 75 MG PO DAILY for 30 Days, #30 TAB 5 Refills Prov:YENNY FRAIRE MD 11/26/23 Tamsulosin Hcl (Flomax) 0.4 Mg Cap, 0.4 MG PO QPM for 30 Days, #30 CAP Prov:BHARAT MICHELLE RESIDENT 10/18/23 Ranolazine (Ranolazine ER) 500 Mg Tab, 500 MG PO BID for 30 Days, #60 TAB 2 Refills Prov:MAGAN URSS 09/16/23 Sacubitril-Valsartan (Entresto 24-26 mg) 1 Tab Tab, 1 TAB PO BID for 30 Days, #60 TAB 3 Refills Prov:LEANNA BROWN DO 05/22/23 Reported Medications Oxycodone W/ Acetaminophen (Percocet 5/325MG) 1 Tab Tb, 1 TAB PO QID, #120 TAB 01/29/24 Polyethylene Glycol 3350 (Miralax) 17 Gm Pow, 17 GM PO DAILY PRN for FOR CONSTIPATION for 30 Days, #30 01/28/24 Lactobacillus (ACIDOPHILUS) Cap, 1 CAP PO BID for 30 Days, #60 09/05/23 Ipratropium-Albuterol (Ipratropium [place]/Albut) 1 Yuli Yuli, 1 VIAL NEB Q6HPRN PRN for SHORTNESS OF BREATH for 13 Days, #180 09/05/23 Fluticasone-Salmeterol (Fluticasone Propionate/SA 250-50 Mcg/Dose) 1 Aer Aer, 1 PUFF INH BID for 30 Days, #60 09/05/23 Albuterol Sulfate (Albuterol Sulfate Hfa) 108 Mcg/Act Aer, 2 PUFF INH Q4HPRN PRN for dyspnea for 17 Days, #18 09/05/23 Cholecalciferol (VITAMIN D3) 2,000 Unit Tab, 1 TAB PO BID for 30 Days, #60 08/28/23 Multiple Vitamin (Tab-A-Radha) Tab, 1 TAB PO DAILY for 30 Days, #30 08/28/23 Aspirin (Aspir-Low) 81 Mg Tab, 1 TAB PO DAILY for 30 Days, #30 08/28/23 Furosemide (Furosemide) 40 Mg Tab, 1 TAB PO DAILY 08/28/23 Ascorbic Acid (VITAMIN C TABLET) 500 Mg Tb, 1 TAB PO BID for 30 Days, #60 05/18/23 Pantoprazole Sodium Sesquihydr (Pantoprazole Sodium) 40 Mg Tab, 1 TAB PO DAILY 05/18/23 Carvedilol (Carvedilol) 3.125 Mg Tab, 1 TAB PO BID for 30 Days, #60 01/02/23 Atorvastatin Calcium (Lipitor) 20 Mg Tab, 1 TAB PO HS for 30 Days, #30 12/30/20 Fluoxetine HCl (Pmdd) (Fluoxetine HCl) 20 Mg Tab, 20 MG PO DAILY, TAB 05/30/20 Information Source: Patient, Emergency Med Personnel Mode of Arrival: EMS Severity: Moderate Timing: Days Duration: Since onset Prehospital treatment: None Onset: Spontaneous Symptoms: Dysuria History of: UTI Location: Abdomen, (R) Flank, (L)Flank associated signs and symptoms: Abdominal Pain, Flank Pain, Dysuria Past Medical History PAST MEDICAL HISTORY: Anemia, Anxiety, Asthma, CAD, CHF, COPD, Depression, GERD, Gout, High Lipids, HTN, Kidney Stones, [place], UTI'S Surgical History: Appendectomy, CABG, Hysterectomy, Pacemaker, PTCA, 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 Family History Family History: Reviewed,noncontributory to illness, Family hx of DM, Family hx of heart gabe Social History Smoker: Non-Smoker Alcohol: Denies ETOH Use Drugs: Denies Drug Use Lives In: Home Constitutional: denies: chills, diaphoresis, fatigue, fever, malaise, sweats, weakness, others EENTM: denies: blurred vision, double vision, ear bleeding, ear discharge, ear drainage, ear pain, ear ringing, eye pain, eye redness, hearing loss, mouth pain, mouth swelling, nasal discharge, nose bleeding, nose congestion, nose pain, photophobia, tearing, throat pain, throat swelling, voice changes, others Respiratory: denies: cough, hemoptysis, orthopnea, SOB at rest, shortness of breath, SOB with excertion, stridor, wheezing, others Cardiovascular: denies: chest pain, dizzy spells, diaphoresis, Dyspnea on exertion, edema, irregular heart beat, left arm pain, lightheadedness, palpitations, PND, syncope, others Gastrointestinal: reports: abdominal pain; denies: abdomen distended, blood streaked bowels, constipated, diarrhea, dysphagia, difficulty swallowing, hematemesis, melena, nausea, poor appetite, poor fluid intake, rectal bleeding, rectal pain, vomiting, others Genitourinary: reports: dysuria, flank pain; denies: abnormal vagina bleeding, burning, dyspareunia, frequency, hematuria, incontinence, pain, , vagina discharge, urgency, others Neurological: denies: dizziness, fainting, headache, left sided numbness, left sided weakness, numbness, paresthesia, pre-existing deficit, right sided numbness, right sided weakness, seizure, speech problems, tingling, tremors, weakness, others Musculoskeletal: denies: back pain, gout, joint pain, joint swelling, muscle pain, muscle stiffness, neck pain, others Integumetry: denies: bruises, change in color, change in hair/nails, dryness, laceration, lesions, lumps, rash, wounds, others Allergic/Immunocompromised: denies: Difficulty Healing, Frequent Infections, Hives, Itching, others Hematologic/Lymphatic: denies: anemia, blood clots, easy bleeding, easy bruising, swollen glands, others Endocrine: denies: excessive hunger, excessive sweating, excessive thirst, excessive urination, flushing, intolerance to cold, intolerance to heat, unexplained weight gain, unexplained weight loss, others Psychiatric: denies: anxiety, bipolar disorder, depression, hopeless, panic disorder, schizophrenia, sleepless, suicidal, others All Other Systems: Reviewed and Negative Physical Exam General Appearance: Moderate Distress, Normal HEENT: Normal ENT Inspection, PERRL/EOMI Neck: Full Range of Motion, Non-Tender, Normal, Normal Inspection Respiratory: Chest Non-Tender, No Accessory Muscle Use, Other (Coarse breath sounds) Cardiovascular: No Edema, No JVD, No Murmur, No Gallop, Normal Peripheral Pulses, Regular Rate/Rhythm Breast Exam: Deferred Gastrointestinal: No Organomegaly, Non Tender, No Pulsatile Mass, Normal Bowel Sounds, Soft Genitalia: Deferred Pelvic: Deferred Rectal: Deferred Extremities: No calf tenderness, Normal capillary refill, Normal inspection, Normal range of motion, Non-tender, No pedal edema Musculoskeletal : Apperance: Normal Neurologic: Alert, certified nutritionist II-XII nml as Tested, No Motor Deficits, Normal Affect, Normal Mood, No Sensory Deficits Cerebellar Function: NOT DONE Reflexes: NOT DONE Skin: Dry, Normal Color, Warm Peripheral Pulses: 3+ Radial (R), 3+ Radial (L) Lymphatic: No Adenopathy Was a procedure done? Was a procedure done?: No Differential Diagnosis Kidney stone (Female): Musculoskeletal pain, Urinary obstruction, Urolithiasis X-Ray, Labs, Meds, VS Vital Signs Date Time Temp Pulse Resp B/P (MAP) Pulse Ox O2 Delivery O2 Flow Rate FiO2 06/18/24 12:13 98.0 85 18 144/92 (109) 96 06/18/24 12:07 79 Lab Test 06/18/24 13:26 06/18/24 12:24 Range/Units White Blood Count 7.8 4.4-10.8 10^3/uL Red Blood Count 4.32 4.0-5.20 10^6/uL Hemoglobin 13.1 12.2-16.2 g/dL Hematocrit 39.5 36.0-46.0 % Mean Corpuscular Volume 91.3 80.0-100.0 fL Mean Corpuscular Hemoglobin 30.3 28.0-32.0 pg Mean Corpuscular Hemoglobin Concent 33.2 32.0-36.0 g/dL Red Cell Distribution Width 14.4 H 11.8-14.3 % Platelet Count 299 140-450 10^3/uL Mean Platelet Volume 7.9 6.9-10.8 fL Neutrophils (%) (Auto) 55.4 37.0-80.0 % Lymphocytes (%) (Auto) 29.7 10.0-50.0 % Monocytes (%) (Auto) 11.1 0.0-12.0 % Eosinophils (%) (Auto) 3.2 0.0-7.0 % Basophils (%) (Auto) 0.6 0.0-2.0 % Neutrophils # (Auto) 4.3 1.6-8.6 10 ^3/uL Lymphocytes # (Auto) 2.3 0.4-5.4 10 ^3/uL Monocytes # (Auto) 0.9 0-1.3 10 ^3/uL Eosinophils # (Auto) 0.3 0-0.8 10 ^3/uL Basophils # (Auto) 0 0-0.2 10 ^3/uL Nucleated Red Blood Cells 0.2 % Sodium Level Pending Potassium Level Pending Chloride Level Pending Carbon Dioxide Level Pending Anion Gap Pending Blood Urea Nitrogen Pending Creatinine Pending Glomerular Filtration Rate Calc Pending BUN/Creatinine Ratio Pending Serum Glucose Pending Calcium Level Pending Troponin I High Sensitivity Pending Urine Color Light-yellow Yellow Urine Clarity Clear Clear Urine pH 5.0 5.0-9.0 Urine Specific [place] 1.012 1.001-1.035 Urine Protein Negative Negative Urine Ketones Negative Negative Urine Blood Negative Negative /uL Urine Nitrite Negative Negative Urine Bilirubin Negative Negative Urine Urobilinogen Normal Negative mg/dL Urine Leukocyte Esterase Negative Negative /uL Urine RBC None seen 0 - 4 /hpf Urine Microscopic WBC < 1 0-5 /HPF Urine Squamous Epithelial Cells Few <5 /hpf Urine Bacteria Few H None Seen /hpf Urine Hyaline Casts Few 0 - 2 /lpf Urine Glucose Normal Normal mg/dL Patient alert. Complaining of cough. States that she has urinary symptoms. Recently discharged from this hospital. Reviewed her previous visit. She does have resistant organism. Establish intravenous access. Was given fluids. Possible sepsis from urinary tract infection. Possible pneumonitis. Explained to the patient. 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 EKG reviewed does not show any acute changes other than paced rhythm. Chest XR: FINDINGS: Lines and Tubes: Left-sided approach biventricular lead AICD with intact leads. Lungs: No focal consolidation. Mild interstitial prominence. Pleura: No effusion. No pneumothorax. Cardiomediastinal contours: Unremarkable. Midline sternotomy wires are noted. Bones: No acute osseous abnormality. IMPRESSION: Mild pulmonary vascular congestion. Time of 1ST Reevaluation: 14:02 Reevaluation 1ST: Unchanged Patient Education/Counseling: Diagnosis, Treatment Family Education/Counseling: No Family Present Departure 1 Departure Time of Disposition: 13:17 Impression: Primary Impression: Pneumonitis Disposition: ADMITTED INPATIENT Admit to: Med Surg Condition: Guarded Critical Care Note Critical Care Time?: No Stability Stability form required: No Heart Score Heart Score: Heart Score Response (Comments) Value History N/A 0 EKG N/A 0 Age N/A 0 Risk Factors N/A 0 Troponin N/A 0 Total 0 I personally scribed for AURORA RAMIREZ MD ([email or web address]) on 06/18/24 at 13:03. Electronically submitted by Prince Gonzáles ([email or web address]). I personally scribed for AURORA RAMIREZ MD ([email or web address]) on 06/18/24 at 13:54. Electronically submitted by Prince Gonzáles ([email or web address]). AURORA RAMIREZ MD Jun 18, 2024 13:03
[2024-06-18 13:39] LABS: Urine Bacteria FEW /hpf (None Seen); Urine Blood Negative /uL (Negative); Urine Clarity Clear (Clear); Urine Color Light-Yellow (Yellow); Urine Hyaline Cast FEW /lpf (0 - 2); Urine Protein, UAD Negative (Negative); Urine Specific Gravity 1.012 (1.001-1.035); Urine Squamous Epithelial Cell FEW /hpf (<5); Urine Urobilinogen Normal (Negative); Urine WBC < 1 /HPF (0-5)
--- NOTE | 2024-06-18 13:39 | DVH ---
CHEST RADIOGRAPH Indication: sob Technique: Single frontal view of the chest was obtained Comparison: XY CHEST PORTABLE on DOS: 05/24/24, XY CHEST PORTABLE on DOS: 05/03/24, XY CHEST XRAY 1 EW on DOS: 04/29/24, XY CHEST PORTABLE on DOS: 03/19/24, XY CHEST XRAY 1 VIEW on DOS: 02/16/24, XY CHES T PORTABLE on DOS: 05/24/24 FINDINGS: Lines and Tubes: Left-sided approach biventricular lead AICD with intact leads. Lungs: No focal consolidation. Mild interstitial prominence. Pleura: No effusion. No pneumothorax. Cardiomediastinal contours: Unremarkable. Midline sternotomy wires are noted. Bones: No acute osseous abnormality. IMPRESSION: Mild pulmonary vascular congestion.
[2024-06-18 13:44] LABS: Basophils # (auto) 0 10 ^3/uL (0-0.2); Basophils % (auto) 0.6 % (0.0-2.0); Eosinophils # (auto) 0.3 10 ^3/uL (0-0.8); Eosinophils % (auto) 3.2 % (0.0-7.0); Hematocrit 39.5 % (36.0-46.0); Hemoglobin 13.1 g/dL (12.2-16.2); Lymphocytes # (auto) 2.3 10 ^3/uL (0.4-5.4); Lymphocytes % (auto) 29.7 % (10.0-50.0); Mean Corpuscular Hemoglobin 30.3 pg (28.0-32.0); Mean Corpuscular Hgb Conc. 33.2 g/dL (32.0-36.0); Mean Corpuscular Volume 91.3 fL (80.0-100.0); Monocytes # (auto) 0.9 10 ^3/uL (0-1.3); Monocytes % (auto) 11.1 % (0.0-12.0); Neutrophils # (auto) 4.3 10 ^3/uL (1.6-8.6); Neutrophils % (auto) 55.4 % (37.0-80.0); Nucleated Red Blood Cells % 0.2 %; Platelet Count (auto) 299 10^3/uL (140-450); Red Blood Cells 4.32 10^6/uL (4.0-5.20); Red Cell Distribution Width 14.4 % (11.8-14.3); White Blood Cell 7.8 10^3/uL (4.4-10.8)
[2024-06-18 13:48] LABS: Potassium 4.5 mmol/L (3.5-5.1); Sodium 141 mmol/L (136-145)
[2024-06-18 13:49] LABS: Anion Gap 8 (5-15); Carbon Dioxide 25 mmol/L (20-31)
[2024-06-18 13:50] LABS: Calcium 9.7 mg/dL (8.7-10.4)
[2024-06-18 13:54] LABS: BUN/Creatinine Ratio 30.4 (10.0-20.0); Glucose 88 mg/dL (74-106)
[2024-06-18 13:57] LABS: Blood Urea Nitrogen 34 mg/dL (9-23); Chloride 108 mmol/L (98-107)
[2024-06-18] MEDS ORDERED: POLYETHYLENE GLYCOL 17 GM PWDR PO PRN (23:15)
--- NOTE | 2024-06-18 23:19 | DVHHPRES ---
History of Present Illness Resident Creating Document: LOLIS KIRBY RESIDENT History of Present Illness 78-year-old female with past medical history of COPD on home oxygen 3 L, Parkinson's disease?, HI s/p CABG 2010, CHF with reduced ejection fraction 15- 20%, recurrent UTI with ESBL positive organisms, GERD, gout, hyperlipidemia, hypertension, nephrolithiasis, diverticulosis, CKD stage 3, who came in due to persistent UTI symptoms. Patient was discharged from the [facility] 3 weeks ago after being found to have ESBL positive UTI, patient was sent to [facility] for Invanz daily for 14 days which the patient says she received the last dose of Invanz a few days ago and is currently awaiting urine cultures that was done at [facility]. At this time, patient is complaining of continued dysuria, lower abdominal cramping, cramping in the groin area along with 1 episode of vomiting earlier today. On review of systems patient is complaining of fatigue, fever, chills, dry cough, dyspnea, shortness of breath, nausea and dysuria along with some anxiety. On physical exam, patient is noted to have trace crackles and suprapubic tenderness to palpation. 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 Dyspnea, Edema, Lt Headedness, Other Gastrointestinal: Nausea, Vomiting, Abdominal Pain; No: Diarrhea, Constipation, Melena, Hematochezia, Other Genitourinary: Dysuria, Frequency; No Incontinence, No Hematuria, No Retention, No Other Musculoskeletal: No: other, neck pain, shoulder pain, arm pain, back pain, hand pain, leg pain, foot pain Skin: No: Rash, Lesions, Jaundice, Bruising, Other Neurological: No: Weakness, Numbness, Incoordination, Change in speech, Confusion, Seizures, Other Allergies: Coded Allergies: Ceftriaxone (Verified Allergy, Intermediate, generalized rash, 11/08/22) FORENSIC BALLISTICS EXPERTCARLENE MEJIA Codeine (Verified Allergy, Unknown, 09/01/20) Hydrocodone (Verified Allergy, Unknown, rash, 05/18/23) tylenol is okay per patient Medications Current Medications Medications Dose Ordered Sig/Asha Route Start Time Stop Time Status Last Admin Dose Admin Acetaminophen 650 mg Q6HP PRN PO 06/18/24 23:15 UNV Enoxaparin Sodium 40 mg DAILY SC 06/19/24 10:00 UNV Aspirin 81 mg DAILY PO 06/19/24 10:00 UNV Atorvastatin Calcium 20 mg HS PO 06/19/24 22:00 UNV Clopidogrel Bisulfate 75 mg DAILY PO 06/19/24 10:00 UNV Oxycodone/ Acetaminophen 1 tab QID PO 06/18/24 23:15 UNV Pantoprazole Sodium 40 mg DAILY PO 06/19/24 10:00 UNV Polyethylene Glycol 17 gm DAILY PRN PO 06/18/24 23:15 UNV Exam Vital Signs Vital Signs Date Time Temp Pulse Resp B/P (MAP) Pulse Ox O2 Delivery O2 Flow Rate FiO2 06/18/24 22:42 97.8 89 28 145/77 (99) 98 97.8 General Appearance: Alert, Oriented X3, Cooperative, mild distress HEENT: Atraumatic, PERRLA, EOMI Respiratory: Other (Trace crackles heard) Cardiovascular: Regular rate, Normal S1, Normal S2 Abdominal: Normal bowel sounds, Soft Extremities: No clubbing, No cyanosis Skin: No rashes, No significant lesion Neuro: Normal speech, Sensation intact Psych/Mental Status: Mental status NL, Mood NL Labs/Xrays Labs Test 06/18/24 13:26 06/18/24 12:24 Range/Units White Blood Count 7.8 4.4-10.8 10^3/uL Red Blood Count 4.32 4.0-5.20 10^6/uL Hemoglobin 13.1 12.2-16.2 g/dL Hematocrit 39.5 36.0-46.0 % Mean Corpuscular Volume 91.3 80.0-100.0 fL Mean Corpuscular Hemoglobin 30.3 28.0-32.0 pg Mean Corpuscular Hemoglobin Concent 33.2 32.0-36.0 g/dL Red Cell Distribution Width 14.4 H 11.8-14.3 % Platelet Count 299 140-450 10^3/uL Mean Platelet Volume 7.9 6.9-10.8 fL Neutrophils (%) (Auto) 55.4 37.0-80.0 % Lymphocytes (%) (Auto) 29.7 10.0-50.0 % Monocytes (%) (Auto) 11.1 0.0-12.0 % Eosinophils (%) (Auto) 3.2 0.0-7.0 % Basophils (%) (Auto) 0.6 0.0-2.0 % Neutrophils # (Auto) 4.3 1.6-8.6 10 ^3/uL Lymphocytes # (Auto) 2.3 0.4-5.4 10 ^3/uL Monocytes # (Auto) 0.9 0-1.3 10 ^3/uL Eosinophils # (Auto) 0.3 0-0.8 10 ^3/uL Basophils # (Auto) 0 0-0.2 10 ^3/uL Nucleated Red Blood Cells 0.2 % Sodium Level 141 136-145 mmol/L Potassium Level 4.5 3.5-5.1 mmol/L Chloride Level 108 H 98-107 mmol/L Carbon Dioxide Level 25 20-31 mmol/L Anion Gap 8 5-15 Blood Urea Nitrogen 34 H 9-23 mg/dL Creatinine 1.12 H 0.550-1.02 mg/dL Glomerular Filtration Rate Calc 50 >90 mL/min BUN/Creatinine Ratio 30.4 H 10.0-20.0 Serum Glucose 88 74-106 mg/dL Calcium Level 9.7 8.7-10.4 mg/dL Troponin I High Sensitivity 24 </=34 ng/L Urine Color Light-yellow Yellow Urine Clarity Clear Clear Urine pH 5.0 5.0-9.0 Urine Specific [place] 1.012 1.001-1.035 Urine Protein Negative Negative Urine Ketones Negative Negative Urine Blood Negative Negative /uL Urine Nitrite Negative Negative Urine Bilirubin Negative Negative Urine Urobilinogen Normal Negative mg/dL Urine Leukocyte Esterase Negative Negative /uL Urine RBC None seen 0 - 4 /hpf Urine Microscopic WBC < 1 0-5 /HPF Urine Squamous Epithelial Cells Few <5 /hpf Urine Bacteria Few H None Seen /hpf Urine Hyaline Casts Few 0 - 2 /lpf Urine Glucose Normal Normal mg/dL Assessment/Plan Assessment/Plan Acute complicated UTI; recurrent. Failed 14 days of INVANZ - IV Zosyn based on urine culture results from 05/27/24; ESBL E coli and proteus sensitive to zosyn - ordered urine cultures - UA: Negative nitrites, negative leukocyte esterase, few bacteria - ordered renal ultrasound: no hydronephrosis Acute on chronic heart failure with reduced ejection fraction 15-20% CAD, s/p PTCA and CABG s/p AICD Dyslipidemia Hypertension - CXR: Mild pulmonary vascular congestion - IV furosemide 20 mg - resumed home medication Coreg 3.125 b.i.d., Entresto 24-26 mg b.i.d., ranolazine 500 mg b.i.d. - aspirin 81 mg daily, atorvastatin 20 mg daily CKD stage 3 - monitor Chronic respiratory failure, on home O2 3 L Chronic obstructive pulmonary disease - SpO2 94 on 3 L O2 via NC - ipratropium and albuterol med nebs - ordered COVID and influenza testing Chronic pain - resumed home medication Percocet 5 mg q.i.d. - acetaminophen 625mg as needed Possible Parkinson's disease versus essential tremors, wheelchair-bound - currently holding home medication primidone PUD prophylaxis: protonix 40mg DVT prophylaxis: Levonox 40mg Goals of care: DNR, discussed for >16 minutes on 06/18/2024; per patient comfort care only. Plan discussed with patient Plan discussed with Dr. Greenwood Plan discussed with: Patient, Other (RN) My Orders Orders - LOLIS KIRBY RESIDENT Procedure Category Date Status Time Admit ADMIT 06/18/24 Transmitted 23:08 Code Status CODE 06/18/24 Transmitted 23:08 Vital Signs [facility] 06/18/24 In Process 23:08 Review Orders With [facility] 06/18/24 In Process Adm. 23:08 Acetaminophen Tablet PHA 06/18/24 Logged (Tylenol Tablet) 23:15 Notify Md Of Changes [facility] 06/18/24 In Process From Base 23:08 Advance Directive [facility]E 06/18/24 In Process 23:08 Blood Culture MELVIN 06/18/24 Logged 23:08 Urine Bacterial MELVIN 06/18/24 In Process Culture 23:08 Patient Condition ORDERS 06/18/24 Transmitted 23:08 Allergies AME 06/18/24 In Process 23:08 Enoxaparin Sodium PHA 06/19/24 Logged (Lovenox) 10:00 Oxygen By Nasal RT 06/18/24 Transmitted Cannula 23:08 Notify Md Of Changes [facility] 06/18/24 In Process From Base 23:08 Aspirin Enteric PHA 06/19/24 Logged Coated Tablet 10:00 Atorvastatin (Lipitor) PHA 06/19/24 Logged 22:00 Clopidogrel Bisulfate PHA 06/19/24 Logged (Plavix) 10:00 Oxycodone W/ Acet PHA 06/18/24 Logged 5/325mg Tab (Percocet 23:15 Pantoprazole Tablet PHA 06/19/24 Logged (Protonix Tablet) 10:00 Polyethylene Glycol PHA 06/18/24 Logged 17g Powder (Miralax 23:15 Kidney US 06/18/24 Logged 23:14 Date of Service: Jun 18, 2024 Billing Provider: ANGELY GREENWOOD MD Common Visit Codes: [id number] INP/OBS CARE (HIGH) LOLIS KIRBY Jun 18, 2024 23:19 ANGELY GREENWOOD MD Jun 19, 2024 23:11
[2024-06-18 23:41] VITALS: PULSE 76; RESP 16; O2SAT 99
[2024-06-19] VITALS (12 sets, daily range): BP systolic 100–137; BP diastolic 48–64; PULSE 51–101; RESP 16–21; TEMP 97.7–98.4; O2SAT 94–100
[2024-06-19] MEDS: OXYCODONE W/ ACETAMINOPHEN 5/325MG TABLET PO SCH (00:34)
[2024-06-19] MEDS: PIPERACILLIN-TAZOB 3.375GM 100 ML IV SCH (00:34)
[2024-06-19] MEDS: FUROSEMIDE 20 MG/2 ML VIAL IV SCH (01:57)
--- NOTE | 2024-06-19 04:26 | DVH ---
INDICATION: complicated uti, ESBL+ TECHNIQUE: Multiple real-time sonographic images of the kidneys and urinary bladder were obtained. COMPARISON: US KIDNEY on DOS: 08/27/23, US KIDNEY on DOS: 07/27/23 FINDINGS: The right kidney measures 9.7 cm in length. Lobular contour of the kidney. The echotexture and trung ical thickness are within normal limits. No hydronephrosis or large masses/calculi are seen. The left kidney measures 9.7 cm in length. Lobular contour. The echotexture and cortical thickness a re within normal limits. No hydronephrosis or large masses/calculi are seen. No echogenic intraluminal masses are seen in the bladder. No urinary bladder wall abnormality. Bilat eral ureteral jets are visualized Prevoid residual measures 65.6 cc. IMPRESSION: 1. No hydronephrosis.
--- NOTE | 2024-06-19 07:01 | ECG ---
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
[2024-06-19] MEDS: ALBUTEROL SULF 2.5 MG/0.5ML(0.5%) NEB SOLN NEB PRN (07:03)
[2024-06-19] MEDS: IPRATROPIUM BROM 0.5 MG/2.5ML INH SOL NEB PRN (07:03)
[2024-06-19] MEDS: RANOLAZINE ER 500 MG TAB PO SCH (10:05)
[2024-06-19] MEDS: SACUBITRIL-VALSARTAN 24mg/26mg TAB PO SCH (10:05)
[2024-06-19] MEDS: PANTOPRAZOLE 40 MG TAB PO SCH (10:05)
[2024-06-19] MEDS: ASPirin-EC 81 mg tab PO SCH (10:06)
[2024-06-19] MEDS: CLOPIDOGREL BISULFATE 75 MG TAB PO SCH (10:06)
[2024-06-19] MEDS: CARVEDILOL 3.125 MG TAB PO SCH (10:07)
[2024-06-19] MEDS: ENOXAPARIN SOD 40 MG/0.4 ML SYRINGE SC SCH (10:10)
--- NOTE | 2024-06-19 16:06 | DVHPNRES ---
Progress Note Date Seen: Jun 19, 2024 Resident Creating Document: JANIA POSADAS RESIDENT Has the PT tested + for MRSA If YES, has PT been informed?: No Medical Necessity Reason Pt with a Central, PICC or Fol: No Subjective Review of Systems 28-year-old female with past medical history of COPD on home oxygen 3 L, Parkinson's disease?, CA s/p CABG 2010, CHF with reduced ejection fraction 15- 20%, recurrent UTI with ESBL positive organisms, GERD, gout, hyperlipidemia, hypertension, nephrolithiasis, diverticulosis, CKD stage 3, who came in due to persistent UTI symptoms. Patient was discharged from the [facility] 3 weeks ago after being found to have ESBL positive UTI, patient was sent to [facility] acute care for Invanz daily for 14 days which the patient says she received the last dose of Invanz a few days ago and is currently awaiting urine cultures that was done at [facility] acute. At this time, patient is complaining of continued dysuria, lower abdominal cramping, cramping in the groin area along with 1 episode of vomiting earlier today. On review of systems patient is complaining of fatigue, fever, chills, dry cough, dyspnea, shortness of breath, nausea and dysuria along with some anxiety. On physical exam, patient is noted to have trace crackles and suprapubic tenderness to palpation. Objective vital signs Vital Sign Date Time Temp Pulse Resp B/P (MAP) Pulse Ox O2 Delivery O2 Flow Rate FiO2 06/19/24 13:00 97.7 63 18 100/49 (66) 97 97.7 06/19/24 12:20 Nasal Cannula* 3 32 Total Intake and Output 06/18/24 06/18/24 06/19/24 15:00 23:00 07:00 Intake Total 50 ml Balance 50 ml medications Current Medications Medications Dose Ordered Sig/Asha Route Start Time Stop Time Status Last Admin Dose Admin Acetaminophen 650 mg Q6HP PRN PO 06/18/24 23:15 Enoxaparin Sodium 40 mg DAILY SC 06/19/24 10:00 06/19/24 10:10 40 MG Aspirin 81 mg DAILY PO 06/19/24 10:00 06/19/24 10:06 81 MG Atorvastatin Calcium 20 mg HS PO 06/19/24 22:00 Clopidogrel Bisulfate 75 mg DAILY PO 06/19/24 10:00 06/19/24 10:06 75 MG Oxycodone/ Acetaminophen 1 tab QID PO 06/18/24 23:15 06/19/24 13:21 1 TAB Pantoprazole Sodium 40 mg DAILY PO 06/19/24 10:00 06/19/24 10:05 40 MG Polyethylene Glycol 17 gm DAILY PRN PO 06/18/24 23:15 Piperacillin Sod/ Tazobactam Sod 100 ml @ 25 mls/hr Q8H IV 06/19/24 00:00 06/19/24 08:20 25 MLS/HR Carvedilol 3.125 mg BID PO 06/19/24 10:00 06/19/24 10:07 3.125 MG Ranolazine 500 mg BID PO 06/19/24 10:00 06/19/24 10:05 500 MG Sacubitril/ Valsartan 1 tab BID PO 06/19/24 10:00 06/19/24 10:05 1 TAB Ipratropium [place] 0.5 mg Q8HPRN PRN NEB 06/18/24 23:45 06/19/24 07:03 0.5 MG Albuterol 2.5 mg Q8HPRN PRN NEB 06/18/24 23:45 06/19/24 07:03 2.5 MG Furosemide 20 mg DAILY IV 06/18/24 23:45 06/19/24 10:07 20 MG Examination General Appearance: Alert, Oriented X3, Cooperative, mild distress HEENT: Atraumatic, PERRLA, EOMI Respiratory: Other (Trace crackles heard) Cardiovascular: Regular rate, Normal S1, Normal S2 Abdominal: Normal bowel sounds, Soft Extremities: No clubbing, No cyanosis Skin: No rashes, No significant lesion Neuro: Normal speech, Sensation intact Psych/Mental Status: Mental status NL, Mood NL laboratory and microbiology Laboratory Tests 06/18/24 13:26 Test 06/18/24 13:26 Range/Units Serum Glucose 88 74-106 mg/dL Problem List/Assessment/Plan Problem List/Assessment/Plan Possible Acute complicated UTI; recurrent. - IV Zosyn based on urine culture results from 05/27/24; ESBL E coli and proteus sensitive to zosyn - ordered urine cultures - UA: Negative nitrites, negative leukocyte esterase, few bacteria - renal ultrasound: no hydronephrosis Acute on chronic heart failure with reduced ejection fraction 15-20% CAD, s/p PTCA and CABG s/p AICD Dyslipidemia Hypertension - CXR: Mild pulmonary vascular congestion - IV furosemide 20 mg - resumed home medication Coreg 3.125 b.i.d., Entresto 24-26 mg b.i.d., ranolazine 500 mg b.i.d. - aspirin 81 mg daily, atorvastatin 20 mg daily CKD stage 3 - monitor Chronic respiratory failure, on home O2 3 L Chronic obstructive pulmonary disease - SpO2 94 on 3 L O2 via NC - ipratropium and albuterol med nebs - ordered COVID and influenza testing Chronic pain - resumed home medication Percocet 5 mg q.i.d. - acetaminophen 625mg as needed Possible Parkinson's disease versus essential tremors, wheelchair-bound - currently holding home medication primidone PUD prophylaxis: protonix 40mg DVT prophylaxis: Levonox 40mg Goals of care: DNR, discussed for >16 minutes on 06/18/2024; per patient comfort care only. Plan discussed with patient Plan discussed with Dr. Suarez Plan discussed with: Patient, Other (rn) Date of Service: Jun 19, 2024 Billing Provider: LUIS SUAREZ MD Common Visit Codes: [id number] INP/OBS CARE(HIGH) JANIA POSADAS RESIDENT Jun 19, 2024 16:06 LUIS SUAREZ MD Jun 20, 2024 09:17
[2024-06-19] MEDS: ONDANSETRON HCL 4 MG/2 ML VIAL IV PRN (20:38)
[2024-06-19] MEDS: ATORVASTATIN 20 MG TAB PO SCH (20:45)
[2024-06-20] VITALS (16 sets, daily range): BP systolic 98–127; BP diastolic 41–65; PULSE 69–87; RESP 16–18; TEMP 96.6–98.1; O2SAT 93–100
[2024-06-20] MEDS: ACETAMINOPHEN 325 MG TAB PO PRN (10:10)
--- NOTE | 2024-06-20 16:46 | DVHDSRES ---
Discharge Summary Date of Admission Resident Creating Document: JANIA POSADAS RESIDENT Jun 18, 2024 at 23:08 Date of Discharge: Jun 20, 2024 Admitting Diagnosis Acute intractable abdominal pain Labs/Diagnostic Data: Laboratory Results Test 06/18/24 13:26 06/18/24 12:24 White Blood Count 7.8 10^3/uL (4.4-10.8) Red Blood Count 4.32 10^6/uL (4.0-5.20) Hemoglobin 13.1 g/dL (12.2-16.2) Hematocrit 39.5 % (36.0-46.0) Mean Corpuscular Volume 91.3 fL (80.0-100.0) Mean Corpuscular Hemoglobin 30.3 pg (28.0-32.0) Mean Corpuscular Hemoglobin Concent 33.2 g/dL (32.0-36.0) Red Cell Distribution Width 14.4 % (11.8-14.3) Platelet Count 299 10^3/uL (140-450) Mean Platelet Volume 7.9 fL (6.9-10.8) Neutrophils (%) (Auto) 55.4 % (37.0-80.0) Lymphocytes (%) (Auto) 29.7 % (10.0-50.0) Monocytes (%) (Auto) 11.1 % (0.0-12.0) Eosinophils (%) (Auto) 3.2 % (0.0-7.0) Basophils (%) (Auto) 0.6 % (0.0-2.0) Neutrophils # (Auto) 4.3 10 ^3/uL (1.6-8.6) Lymphocytes # (Auto) 2.3 10 ^3/uL (0.4-5.4) Monocytes # (Auto) 0.9 10 ^3/uL (0-1.3) Eosinophils # (Auto) 0.3 10 ^3/uL (0-0.8) Basophils # (Auto) 0 10 ^3/uL (0-0.2) Nucleated Red Blood Cells 0.2 % Sodium Level 141 mmol/L (136-145) Potassium Level 4.5 mmol/L (3.5-5.1) Chloride Level 108 mmol/L (98-107) Carbon Dioxide Level 25 mmol/L (20-31) Anion Gap 8 (5-15) Blood Urea Nitrogen 34 mg/dL (9-23) Creatinine 1.12 mg/dL (0.550-1.02) Glomerular Filtration Rate Calc 50 mL/min (>90) BUN/Creatinine Ratio 30.4 (10.0-20.0) Serum Glucose 88 mg/dL (74-106) Calcium Level 9.7 mg/dL (8.7-10.4) Troponin I High Sensitivity 24 ng/L (</=34) B-Type Natriuretic Peptide 564.09 pg/mL (0-100) Urine Color Light-yellow (Yellow) Urine Clarity Clear (Clear) Urine pH 5.0 (5.0-9.0) Urine Specific [place] 1.012 (1.001-1.035) Urine Protein Negative (Negative) Urine Ketones Negative (Negative) Urine Blood Negative /uL (Negative) Urine Nitrite Negative (Negative) Urine Bilirubin Negative (Negative) Urine Urobilinogen Normal mg/dL (Negative) Urine Leukocyte Esterase Negative /uL (Negative) Urine RBC None seen /hpf (0 - 4) Urine Microscopic WBC < 1 /HPF (0-5) Urine Squamous Epithelial Cells Few /hpf (<5) Urine Bacteria Few /hpf (None Seen) Urine Hyaline Casts Few /lpf (0 - 2) Urine Glucose Normal mg/dL (Normal) Other Laboratory Tests 06/18/24 13:26 Brief Hx & Hospital Course: A 78-year-old female with a history of COPD on home oxygen 3L, chronic heart failure with reduced ejection fraction (15-20%), recurrent UTIs with ESBL organisms, CKD stage 3, and Parkinsons disease, presented with complaints of dysuria, abdominal cramping, and fatigue. During her stay, UA was negative for UTI. No signs of hydronephrosis were noted on renal ultrasound, and she demonstrated clinical improvement. Other chronic conditions, including CHF and COPD, were stable on home medications. She is medically optimized and ready for discharge to a [facility] facility for further rehabilitation and monitoring. She no longer requires IV antibiotics, and her care will continue with oral medications as clinically indicated. Goals of care were discussed extensively with the patient and family. Ensure close outpatient follow-up to address her chronic conditions and monitor for any recurrent symptoms. Patient is advised to f/u results of urine culture in DC clinic. General Appearance: Alert, Oriented X3, Cooperative, mild distress HEENT: Atraumatic, PERRLA, EOMI Respiratory: Other (Trace crackles heard) Cardiovascular: Regular rate, Normal S1, Normal S2 Abdominal: Normal bowel sounds, Soft Extremities: No clubbing, No cyanosis Skin: No rashes, No significant lesion Neuro: Normal speech, Sensation intact Psych/Mental Status: Mental status NL, Mood NL Case discussed with Dr Suarez Time spent on care 23 min Operations or Procedures INDICATION: complicated uti, ESBL+ TECHNIQUE: Multiple real-time sonographic images of the kidneys and urinary bladder were obtained. COMPARISON: US KIDNEY on DOS: 08/27/23, US KIDNEY on DOS: 07/27/23 FINDINGS: The right kidney measures 9.7 cm in length. Lobular contour of the kidney. The echotexture and cortical thickness are within normal limits. No hydronephrosis or large masses/calculi are seen. The left kidney measures 9.7 cm in length. Lobular contour. The echotexture and cortical thickness are within normal limits. No hydronephrosis or large masses/calculi are seen. No echogenic intraluminal masses are seen in the bladder. No urinary bladder wall abnormality. Bilateral ureteral jets are visualized Prevoid residual measures 65.6 cc. IMPRESSION: 1. No hydronephrosis. Condition at Discharge: Stable Final Diagnosis/Problems List Acute intractable abdominal pain Possible chronic UTI Acute on chronic heart failure with reduced ejection fraction 15-20% CAD, s/p PTCA and CABG s/p AICD Dyslipidemia Hypertension CKD stage 3 Chronic respiratory failure, on home O2 3 L Chronic obstructive pulmonary disease Chronic pain Possible Parkinson's disease versus essential tremors, wheelchair-bound Discharge Disposition: Assisted Living Facility Discharge Instruct/Medications Diet: Consistent carbohydrate, Cardiac 2g Na,low cholest Activity: Light activity Follow Up/Referral: dc clinic results of urine culture Medications: resume home meds+ oral AB Discharge Statement: "Patient was advised to return to the ER or call 911 if any headaches, dizziness, shortness of breath, chest pain, abdominal pain, bleeding, fevers, or worsening of medical condition. Patient was counseled about treatment plan, medications, possible side effects, patientverbalized understanding. All questions were answered to the best of my ability. This discharge took greater then 30 minutes in planning, reviewing documentation, counseling the patient, and discussing with other team members." ASSESSMENT ASSESSMENT Assessment ACUTE ABDOMINAL PAIN Date of Service: Jun 20, 2024 Billing Provider: LUIS SUAREZ MD Common Visit Codes: 11294-ROR/OBS DISCH DAY >30min JANIA POSADAS RESIDENT Jun 20, 2024 16:46 LUIS SUAREZ MD Jun 20, 2024 23:03
[2024-06-20] MEDS: AMOXICILLIN/CLAVULAN 500 MG TAB PO SCH (21:05)
== END 2024-06-20 23:32 | DRG 291 ==
LOC: EDBD 12:04 → ER 12:04 → OVERFLOW 23:08 → WEST WING 06-19 11:08
PROVIDERS: ADMIT Internal Medicine; ATTEND Internal Medicine
PROC: 05HC33Z Insertion of Infusion Device into Left Basilic Vein, Percutaneous Approach (ICD-10-PCS; principal; 2024-06-19)
PROC: B54NZZA Ultrasonography of Left Upper Extremity Veins, Guidance (ICD-10-PCS; 2024-06-19)
DX: I13.0 Hypertensive heart and chronic kidney disease with heart failure and stage 1 through stage 4 chronic kidney disease, or unspecified chronic kidney disease (principal); I50.23 Acute on chronic systolic (congestive) heart failure; N39.0 Urinary tract infection, site not specified; J96.10 Chronic respiratory failure, unspecified whether with hypoxia or hypercapnia; K21.9 Gastro-esophageal reflux disease without esophagitis; M10.9 Gout, unspecified; J44.89 Other specified chronic obstructive pulmonary disease; G89.29 Other chronic pain; I25.10 Atherosclerotic heart disease of native coronary artery without angina pectoris; F32.A Depression, unspecified; F41.9 Anxiety disorder, unspecified; J98.4 Other disorders of lung; N18.30 Chronic kidney disease, stage 3 unspecified; Z88.1 Allergy status to other antibiotic agents; Z88.5 Allergy status to narcotic agent; Z88.8 Allergy status to other drugs, medicaments and biological substances; Z79.899 Other long term (current) drug therapy; Z90.710 Acquired absence of both cervix and uterus; Z95.1 Presence of aortocoronary bypass graft; Z99.81 Dependence on supplemental oxygen; Z99.3 Dependence on wheelchair; Z87.442 Personal history of urinary calculi
CPT/HCPCS: 36415; 71045; 76775; 80048; 81001; 83880; 84484; 85025; 87040; 87081; 87086; 93005; 94640; G0378; J2405; J2543

== ENCOUNTER 2024-07-12 13:12 | Inpatient (IN) | payer OTHER, MEDICAID ==
[~2024-07-12] VITALS: Ht 162.6 cm; Wt 77.2 kg
--- NOTE | 2024-07-12 13:20 | ED.PDOC ---
History of Present Illness HPI Comments 78-year-old female brought by ambulance because of chest pain shortness a breath cough for the past few days. Chest pain just started this morning. She has been on antibiotics for possible bronchitis. Patient states that her last antibiotic dose was yesterday. She is coming from [facility]. Minda champagne does have a history of coronary artery disease CABG pacemaker hypertension. Was recently discharged from this hospital. Denies any other symptoms. Chief Complaint: Chest Pain Time Seen by MD: 13:14 Primary Care Provider: HORTENCIA Reviewed Notes: Nurses Notes, Medications, Allergies Allergies: Coded Allergies: Ceftriaxone (Verified Allergy, Intermediate, generalized rash, 11/08/22) WRAPPER LAYERCARLENE MEJIA Codeine (Verified Allergy, Unknown, 09/01/20) Hydrocodone (Verified Allergy, Unknown, rash, 05/18/23) tylenol is okay per patient Home Meds Active Scripts Duloxetine Hydrochloride (Duloxetine Hydrochloride) 30 Mg Cap, 30 MG PO DAILY for 30 Days, #30 CAP Prov:WINSOME GOMEZ MD 04/29/24 Phenazopyridine HCl (Phenazopyridine Hydrochlo) 200 Mg Tab, 200 MG PO TID for 3 Days, #9 TAB Prov:NIRALI MARTINO RESIDENT 04/10/24 Primidone (MYSOLINE TABLET) 50 Mg Tb, 25 MG PO HS for 30 Days, #15 TAB Prov:NIRALI MARTINO RESIDENT 04/10/24 Clopidogrel Bisulfate (CLOPIDOGREL) 75 Mg Tab, 75 MG PO DAILY for 30 Days, #30 TAB 5 Refills Prov:YENNY FRAIRE MD 11/26/23 Tamsulosin Hcl (Flomax) 0.4 Mg Cap, 0.4 MG PO QPM for 30 Days, #30 CAP Prov:BHARAT MICHELLE 10/18/23 Ranolazine (Ranolazine ER) 500 Mg Tab, 500 MG PO BID for 30 Days, #60 TAB 2 Refills Prov:MAGAN RUSS RESIDENT 09/16/23 Sacubitril-Valsartan (Entresto 24-26 mg) 1 Tab Tab, 1 TAB PO BID for 30 Days, #60 TAB 3 Refills Prov:LEANNA BROWN DO 05/22/23 Reported Medications Oxycodone W/ Acetaminophen (Percocet 5/325MG) 1 Tab Tb, 1 TAB PO QID, #120 TAB 01/29/24 Polyethylene Glycol 3350 (Miralax) 17 Gm Pow, 17 GM PO DAILY PRN for FOR CONSTIPATION for 30 Days, #30 01/28/24 Lactobacillus (ACIDOPHILUS) Cap, 1 CAP PO BID for 30 Days, #60 09/05/23 Ipratropium-Albuterol (Ipratropium [place]/Albut) 1 Yuli Yuli, 1 VIAL NEB Q6HPRN PRN for SHORTNESS OF BREATH for 13 Days, #180 09/05/23 Fluticasone-Salmeterol (Fluticasone Propionate/SA 250-50 Mcg/Dose) 1 Aer Aer, 1 PUFF INH BID for 30 Days, #60 09/05/23 Albuterol Sulfate (Albuterol Sulfate Hfa) 108 Mcg/Act Aer, 2 PUFF INH Q4HPRN PRN for dyspnea for 17 Days, #18 09/05/23 Cholecalciferol (VITAMIN D3) 2,000 Unit Tab, 1 TAB PO BID for 30 Days, #60 08/28/23 Multiple Vitamin (Tab-A-Radha) Tab, 1 TAB PO DAILY for 30 Days, #30 08/28/23 Aspirin (Aspir-Low) 81 Mg Tab, 1 TAB PO DAILY for 30 Days, #30 08/28/23 Furosemide (Furosemide) 40 Mg Tab, 1 TAB PO DAILY 08/28/23 Ascorbic Acid (VITAMIN C TABLET) 500 Mg Tb, 1 TAB PO BID for 30 Days, #60 05/18/23 Pantoprazole Sodium Sesquihydr (Pantoprazole Sodium) 40 Mg Tab, 1 TAB PO DAILY 05/18/23 Carvedilol (Carvedilol) 3.125 Mg Tab, 1 TAB PO BID for 30 Days, #60 01/02/23 Atorvastatin Calcium (Lipitor) 20 Mg Tab, 1 TAB PO HS for 30 Days, #30 12/30/20 Fluoxetine HCl (Pmdd) (Fluoxetine HCl) 20 Mg Tab, 20 MG PO DAILY, TAB 05/30/20 Information Source: Patient, Emergency Med Personnel Mode of Arrival: EMS Severity: Moderate Timing: Days Duration: Since onset Past Medical History PAST MEDICAL HISTORY: Anemia, Anxiety, Asthma, CAD, CHF, COPD, Depression, GERD, Gout, High Lipids, HTN, Kidney Stones, NC, UTI'S Surgical History: Appendectomy, CABG, Hysterectomy, Pacemaker, PTCA, 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 [employer]PER[employer]OR [employer] History: Ovarian Cysts Family History Family History: Reviewed,noncontributory to illness, Family hx of DM, Family hx of heart gabe Social History Smoker: Non-Smoker Alcohol: Denies ETOH Use Drugs: Denies Drug Use Lives In: Home Constitutional: denies: chills, diaphoresis, fatigue, fever, malaise, sweats, weakness, others EENTM: denies: blurred vision, double vision, ear bleeding, ear discharge, ear drainage, ear pain, ear ringing, eye pain, eye redness, hearing loss, mouth pain, mouth swelling, nasal discharge, nose bleeding, nose congestion, nose pain, photophobia, tearing, throat pain, throat swelling, voice changes, others Respiratory: reports: cough, shortness of breath; denies: hemoptysis, orthopnea, SOB at rest, SOB with excertion, stridor, wheezing, others Cardiovascular: reports: chest pain; denies: dizzy spells, diaphoresis, Dyspnea on exertion, edema, irregular heart beat, left arm pain, lightheadedness, palpitations, PND, syncope, others Gastrointestinal: denies: abdomen distended, abdominal pain, blood streaked bowels, constipated, diarrhea, dysphagia, difficulty swallowing, hematemesis, melena, nausea, poor appetite, poor fluid intake, rectal bleeding, rectal pain, vomiting, others Genitourinary: denies: abnormal vagina bleeding, burning, dyspareunia, dysuria, flank pain, frequency, hematuria, incontinence, pain, , vagina dischar ge, urgency, others Neurological: denies: dizziness, fainting, headache, left sided numbness, left sided weakness, numbness, paresthesia, pre-existing deficit, right sided numbness, right sided weakness, seizure, speech problems, tingling, tremors, weakness, others Musculoskeletal: denies: back pain, gout, joint pain, joint swelling, muscle pain, muscle stiffness, neck pain, others Integumetry: denies: bruises, change in color, change in hair/nails, dryness, laceration, lesions, lumps, rash, wounds, others Allergic/Immunocompromised: denies: Difficulty Healing, Frequent Infections, Hives, Itching, others Hematologic/Lymphatic: denies: anemia, blood clots, easy bleeding, easy bruising, swollen glands, others Endocrine: denies: excessive hunger, excessive sweating, excessive thirst, excessive urination, flushing, intolerance to cold, intolerance to heat, unexplained weight gain, unexplained weight loss, others Psychiatric: denies: anxiety, bipolar disorder, depression, hopeless, panic disorder, schizophrenia, sleepless, suicidal, others Physical Exam General Appearance: Moderate Distress HEENT: Normal ENT Inspection, Pharynx Normal, TMs Normal Neck: Full Range of Motion, Non-Tender, Normal, Normal Inspection Respiratory: Other (Coarse breath sounds) Cardiovascular: No Edema, No JVD, No Murmur, No Gallop, Normal Peripheral Pulses, Regular Rate/Rhythm Breast Exam: Deferred Gastrointestinal: No Organomegaly, Non Tender, No Pulsatile Mass, Normal Bowel Sounds, Soft Genitalia: Deferred Pelvic: Deferred Rectal: Deferred Extremities: No calf tenderness, No pedal edema Musculoskeletal : Apperance: Normal Neurologic: Alert, No Motor Deficits, No Sensory Deficits Cerebellar Function: NOT DONE Reflexes: NOT DONE Skin: Normal Color Peripheral Pulses: 3+ Radial (R), 3+ Radial (L) Lymphatic: No Adenopathy Was a procedure done? Was a procedure done?: No Differential Dx Considerations may include: Pneumonitis Electrolyte imbalance X-Ray, Labs, Meds, VS Vital Signs Date Time Temp Pulse Resp B/P (MAP) Pulse Ox O2 Delivery O2 Flow Rate FiO2 07/12/24 13:15 98.7 89 16 143/72 (95) 98 Patient alert. Complaining of cough shortness a breath chest pain. EKG does show paced rhythm. Vitals stable. Answering all questions. Continues to have cough. Chest x-ray shows pneumonitis. Establish intravenous access. Was given steroid. Was given breathing treatment. Reviewed her previous visit. Explained to the patient. Continue cardiac monitoring. Time of 1ST Reevaluation: 13:22 Reevaluation 1ST: Unchanged Patient Education/Counseling: Diagnosis, Treatment, Prognosis Family Education/Counseling: No Family Present Departure 1 Departure Time of Disposition: 13:24 Impression: Primary Impression: Chest pain of unknown etiology Additional Impression: Pneumonitis Disposition: ADMITTED INPATIENT Admit to: Med Surg Condition: Guarded Critical Care Note Critical Care Time?: Yes (45 min-critical care time only) Critical care comment: On oxygen Stability Stability form required: No Heart Score Heart Score: Heart Score Response (Comments) Value History Slightly Suspicious 0 EKG Normal 0 Age >65 2 Risk Factors >3 or Hx ASHD 2 Troponin Normal limit 0 Total 4 AURORA RAMIREZ MD Jul 12, 2024 13:20
--- NOTE | 2024-07-12 13:31 | ECG ---
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
[2024-07-12] MEDS: IPRATROPIUM BROM 0.5 MG/2.5ML INH SOL NEB ONE (13:45)
[2024-07-12] MEDS: ALBUTEROL SULF 2.5 MG/0.5ML(0.5%) NEB SOLN NEB ONE (13:45)
--- NOTE | 2024-07-12 14:16 | DVH ---
CHEST RADIOGRAPH Indication: sob Technique: Single frontal view of the chest was obtained Comparison: XY CHEST PORTABLE on DOS: 06/18/24, XY CHEST PORTABLE on DOS: 05/24/24, XY CHEST PORTABLE on DOS: 05/03/24, XY CHEST XRAY 1 VIEW on DOS: 04/29/24, XY CHEST PORTABLE on DOS: 03/19/24 FINDINGS: Lines and Tubes: None Lungs: No focal consolidation. Pleura: No effusion. No pneumothorax. Cardiomediastinal contours: Cardiomegaly Bones: No acute osseous abnormality. IMPRESSION: Cardiomegaly with mild CHF
[2024-07-12 14:20] LABS: Basophils # (auto) 0.1 10 ^3/uL (0-0.2); Eosinophils # (auto) 0.3 10 ^3/uL (0-0.8); Eosinophils % (auto) 3.4 % (0.0-7.0); Hematocrit 44.2 % (36.0-46.0); Hemoglobin 14.5 g/dL (12.2-16.2); Lymphocytes # (auto) 2.5 10 ^3/uL (0.4-5.4); Lymphocytes % (auto) 33.4 % (10.0-50.0); Mean Corpuscular Hemoglobin 29.3 pg (28.0-32.0); Mean Corpuscular Hgb Conc. 32.9 g/dL (32.0-36.0); Monocytes # (auto) 0.8 10 ^3/uL (0-1.3); Monocytes % (auto) 10.7 % (0.0-12.0); Neutrophils # (auto) 3.9 10 ^3/uL (1.6-8.6); Neutrophils % (auto) 51.5 % (37.0-80.0); Platelet Count (auto) 283 10^3/uL (140-450); Red Blood Cells 4.97 10^6/uL (4.0-5.20); Red Cell Distribution Width 14.1 % (11.8-14.3); White Blood Cell 7.6 10^3/uL (4.4-10.8)
[2024-07-12 14:52] LABS: Alanine Aminotransferase 16 U/L (7-40); Alkaline Phosphatase 86 U/L (46-116); Anion Gap 7 (5-15); Aspartate Aminotransferase 22 U/L (13-40); BUN/Creatinine Ratio 25.8 (10.0-20.0); Bilirubin, Total 0.5 mg/dL (0.2-1.0); Calcium 10.2 mg/dL (8.7-10.4); Carbon Dioxide 26 mmol/L (20-31); Potassium 4.6 mmol/L (3.5-5.1); Sodium 140 mmol/L (136-145); Total Protein 7.1 g/dL (5.7-8.2)
[2024-07-12 15:04] LABS: Albumin 4.9 g/dL (3.2-4.8); Blood Urea Nitrogen 31 mg/dL (9-23); Chloride 107 mmol/L (98-107); Glucose 118 mg/dL (74-106)
[2024-07-12 16:09] LABS: Urine Bacteria None Seen /hpf (None Seen)
[2024-07-12 16:16] LABS: Urine Blood Negative /uL (Negative); Urine Clarity Clear (Clear); Urine Color Light-Yellow (Yellow); Urine Hyaline Cast MOD /lpf (0 - 2); Urine Mucus FEW (None Seen); Urine Protein, UAD Negative (Negative); Urine Specific Gravity 1.014 (1.001-1.035); Urine Squamous Epithelial Cell FEW /hpf (<5); Urine Urobilinogen Normal (Negative); Urine WBC 2 /HPF (0-5)
[2024-07-12 17:38] VITALS: PULSE 82; RESP 16; O2SAT 93
[2024-07-12] MEDS: NITROGLYCERIN 0.4 MG SL TAB SL ONE (17:42)
[2024-07-12] MEDS: ASPirin 325 MG TAB PO ONE (17:42)
[2024-07-12] MEDS: methylPREDNISolone SOD SUCC 125 MG/2 ML VL IV ONE (18:29)
[2024-07-12] MEDS: MORPHINE SULFATE INJ 2 MG/ml SYRG IV ONE (18:44)
[2024-07-12] MEDS: ONDANSETRON HCL 4 MG/2 ML VIAL IV ONE (18:44)
--- NOTE | 2024-07-12 19:21 | ECG ---
[facility] Test Date: 2024-07-12 Test Time: 14:27:52 Pat Name: MONICA JAMES Department: ER Room: 0203 Gender: F Hand Pattern Marker: BRIA : 1945 Requested By: AURORA RAMIREZ Order Number: [id number] Reading MD: Adair Mijares Measurements Intervals [place] Rate: 74 P: 0 [place]: 167 QRS: -68 QRSD: 134 T: 105 QT: 476 QTc: 529 Interpretive Statements Atrial-ventricular dual-paced complexes No further analysis attempted due to paced rhythm Electronically Signed On 07-13-2024 8:28:34 PST by Adair Mijares Please click the below link to view image of tracing.
[2024-07-12 19:32] VITALS: PULSE 65; RESP 18; O2SAT 95
[2024-07-12] MEDS: IPRATROPIUM BROM 0.5 MG/2.5ML INH SOL NEB PRN (19:32)
[2024-07-12] MEDS: ALBUTEROL SULF 2.5 MG/0.5ML(0.5%) NEB SOLN NEB PRN (19:32)
[2024-07-12 19:38] VITALS: PULSE 80; RESP 18; O2SAT 99
[2024-07-12] MEDS: ACETAMINOPHEN 325 MG TAB PO PRN (20:10)
[2024-07-12] MEDS: FUROSEMIDE 20 MG/2 ML VIAL IV ONE (20:10)
[2024-07-12 20:36] VITALS: BP 120/58; PULSE 68; RESP 18; TEMP 98; O2SAT 96
[2024-07-12 20:56] VITALS: PULSE 76; RESP 18; O2SAT 76
--- NOTE | 2024-07-12 22:32 | DVHHP2 ---
History of Present Illness Reason for Visit: SHORTNESS OF BREATH History of Present Illness 78-YEAR-OLD FEMALE PRESENTS FOR EVALUATION OF SHORTNESS FOR BREATH. PATIENT REPORTS A TWO DAY HISTORY OF WORSENING SHORTNESS FOR BREATH WITH ASSOCIATED LEFT-SIDED CHEST PRESSURE. SHE REPORTS FATIGUE AND GENERALIZED WEAKNESS. SHE REPORTS RECENTLY COMPLETING AN ANTIBIOTIC REGIMEN YESTERDAY. DENIES ANY OTHER ACUTE COMPLAINTS AT THE MOMENT. Past Medical History CONGESTIVE HEART FAILURE, CAD, ASTHMA, COPD, GERD, GOUT, DYSLIPIDEMIA, HYPERTENSION, MD Past Surgical History HYSTERECTOMY, CABG, APPENDECTOMY, PACEMAKER, PTCA, TONSILLECTOMY Family History DIABETES MELLITUS Smoke: No ALCOHOL: none Drugs: None Lives: with Family Review of Systems Review of Systems REVIEW OF SYSTEMS ARE CURRENTLY NEGATIVE OTHERWISE ADDRESSED Allergies: Coded Allergies: Ceftriaxone (Verified Allergy, Intermediate, generalized rash, 11/08/22) [employer] OMEGA MEJIA Codeine (Verified Allergy, Unknown, 09/01/20) Hydrocodone (Verified Allergy, Unknown, rash, 05/18/23) tylenol is okay per patient Medications Current Medications Medications Dose Ordered Sig/Asha Route Start Time Stop Time Status Last Admin Dose Admin Albuterol 2.5 mg Q6HPRN PRN NEB 07/12/24 19:15 07/12/24 19:32 2.5 MG Ipratropium [place] 0.5 mg Q6HPRN PRN NEB 07/12/24 19:15 07/12/24 19:32 0.5 MG Carvedilol 3.125 mg Q12HR PO 07/12/24 22:00 Atorvastatin Calcium 20 mg HS PO 07/12/24 22:00 Clopidogrel Bisulfate 75 mg DAILY PO 07/13/24 10:00 Duloxetine HCl 30 mg DAILY PO 07/13/24 10:00 Aspirin 81 mg DAILY PO 07/13/24 10:00 Furosemide 20 mg DAILY IV 07/13/24 10:00 Ranolazine 500 mg BID PO 07/12/24 22:00 Sacubitril/ Valsartan 1 tab BID PO 07/12/24 22:00 Ondansetron HCl 4 mg Q4HP PRN IV 07/12/24 19:15 Enoxaparin Sodium 30 mg DAILY SC 07/13/24 10:00 Acetaminophen 650 mg Q6HP PRN PO 07/12/24 19:15 07/12/24 20:10 650 MG Exam Vital Signs Vital Signs Date Time Temp Pulse Resp B/P (MAP) Pulse Ox O2 Delivery O2 Flow Rate FiO2 07/12/24 21:02 98.0 75 18 125/58 (80) 95 98.0 07/12/24 20:36 3.0 07/12/24 19:32 Nasal Cannula* 32 Exam GEN: 78-YEAR-OLD FEMALE IN MILD DISTRESS SKIN: WARM, DRY, NORMAL COLOR AND TEXTURE, NO RASH. HEENT: NORMOCEPHALIC ATRAUMATIC, MUCOUS MEMBRANES MOIST AND PINK. NECK: CERVICAL AND SUPRACLAVICULAR NODES NORMAL WITHOUT ENLARGEMENT, TRACHEA IS MIDLINE, THYROID GLAND IS NORMAL WITHOUT MASSES. PULMONARY: CLEAR TO AUSCULTATION AND PERCUSSION BILATERALLY. CARDIAC: REGULAR RATE AND RHYTHM. NO MURMUR ABDOMEN: SOFT, NONTENDER, NONDISTENDED, BOWEL SOUNDS PRESENT ALL 4 QUADRANTS, NO GUARDING, NO RIGIDITY, NO ORGANOMEGALY. EXTREMITIES: NO CYANOSIS, CLUBBING, NO EDEMA NEURO: CRANIAL NERVES II THROUGH XII GROSSLY INTACT, NORMAL AFFECT AND SPEECH, NO FOCAL MOTOR DEFICITS. Labs/Xrays ORDERING PHYSICIAN: AURORA RAMIREZ MD PROCEDURE(s): CXRP - CHEST PORTABLE REASON: sob ORDER NUMBER(s): [id number], ACCESSION NUMBER(s): [id number] CHEST RADIOGRAPH Indication: sob Technique: Single frontal view of the chest was obtained Comparison: XY CHEST PORTABLE on DOS: 06/18/24, XY CHEST PORTABLE on DOS: 05/24/24, XY CHEST PORTABLE on DOS: 05/03/24, XY CHEST XRAY 1 VIEW on DOS: 04/29/24, XY CHEST PORTABLE on DOS: 03/19/24 FINDINGS: Lines and Tubes: None Lungs: No focal consolidation. Pleura: No effusion. No pneumothorax. Cardiomediastinal contours: Cardiomegaly Bones: No acute osseous abnormality. IMPRESSION: Cardiomegaly with mild CHF RING PHYSICIAN: JORGE MONTGOMERY PROCEDURE(s): ECIDC - ECHO 2D MODE CARDIAC DOP REASON: HFrEF 10% EF > 6 months. ORDER NUMBER(s): [id number], ACCESSION NUMBER(s): [id number] APPROVED REPORT EXAM: Two-dimensional and M-mode echocardiogram with Doppler and color Doppler. Blood Pressure: 102/52 mmHg INDICATION HFrEF 10% EF > 6 MONTHS RISK FACTORS Obesity: Height: 5'4, Weight: 163 DIMENSIONS LVDd 6.5 (3.8-5.7cm) LA (2D) 3.7 (1.9-4.0cm) Aortic Root 2.9 (2.0- 3.7cm) LVDs 5.9 (2.5-4.0cm) LA (MM) (1.9-4.0cm) Aortic Cusp Exc 1.3 (1.5- 2.0cm) EF (%) 18.0 (55-70%) Rt. Atrium 3.8 (1.9-4.0cm) Asc. Aorta cm IVSd 0.9 (0.7-1.1cm) RV (D) (1.8-2.4cm) PWd 0.8 (0.7-1.1cm) Mitral Valve Mitral Mitral Stenosis E wave 0.47m/s MV Mean GR. mmHg A wave 1.15m/s MV Peak GR. 107mmHg E/A ratio 0.4 2D MVA cm2 DECEL Time 173ms PRESS 1/2 Time ms Aortic Valve Aortic Valve Aortic Stenosis V1 0.90m/s AO Mean GR. 4mmHg V2 1.31m/s AO Peak GR. 7mmHg LVOT Diameter 2.3 (1.8-2.4cm) Doppler GULSHAN 2.85cm2 Pulmonic Valve V2 1.02m/s Conclusion Left ventricle: Left ventricle was dilated with significantly reduced systolic function. LVEF was 15-20%. Diffuse hypokinesis of left ventricle with regional variation was seen. Abnormal relaxation of left ventricular diastolic function was observed. Right ventricle revealed reduced systolic function. Mild biatrial enlargement was seen. Pacing wire was seen in the right-sided chambers. Aortic valve was not well visualized. There was no aortic insufficiency/stenosis. There was mild mitral regurgitation. There was no tricuspid regurgitation. As there was no good tricuspid regurgitation jet, right ventricular systolic pressure could not be estimated. Pulmonary valve was not well visualized. There was no pericardial effusion. SIGNED BY: RODRIGUEZ LEBRON MD SIGNED DATE/TIME: 05/26/24 7692 Labs Test 07/12/24 16:00 07/12/24 15:22 07/12/24 14:10 Range/Units Urine Color Light-yellow Yellow Urine Clarity Clear Clear Urine pH 5.0 5.0-9.0 Urine Specific [place] 1.014 1.001-1.035 Urine Protein Negative Negative Urine Ketones Negative Negative Urine Blood Negative Negative /uL Urine Nitrite Negative Negative Urine Bilirubin Negative Negative Urine Urobilinogen Normal Negative mg/dL Urine Leukocyte Esterase 1+ Negative /uL Urine RBC 1 0 - 4 /hpf Urine Microscopic WBC 2 0-5 /HPF Urine Squamous Epithelial Cells Few <5 /hpf Urine Bacteria None seen None Seen /hpf Urine Hyaline Casts Mod 0 - 2 /lpf Urine Mucus Few None Seen Urine Glucose Normal Normal mg/dL Troponin I High Sensitivity 29 </=34 ng/L White Blood Count 7.6 4.4-10.8 10^3/uL Red Blood Count 4.97 4.0-5.20 10^6/uL Hemoglobin 14.5 12.2-16.2 g/dL Hematocrit 44.2 36.0-46.0 % Mean Corpuscular Volume 89.0 80.0-100.0 fL Mean Corpuscular Hemoglobin 29.3 28.0-32.0 pg Mean Corpuscular Hemoglobin Concent 32.9 32.0-36.0 g/dL Red Cell Distribution Width 14.1 11.8-14.3 % Platelet Count 283 140-450 10^3/uL Mean Platelet Volume 8.2 6.9-10.8 fL Neutrophils (%) (Auto) 51.5 37.0-80.0 % Lymphocytes (%) (Auto) 33.4 10.0-50.0 % Monocytes (%) (Auto) 10.7 0.0-12.0 % Eosinophils (%) (Auto) 3.4 0.0-7.0 % Basophils (%) (Auto) 1.0 0.0-2.0 % Neutrophils # (Auto) 3.9 1.6-8.6 10 ^3/uL Lymphocytes # (Auto) 2.5 0.4-5.4 10 ^3/uL Monocytes # (Auto) 0.8 0-1.3 10 ^3/uL Eosinophils # (Auto) 0.3 0-0.8 10 ^3/uL Basophils # (Auto) 0.1 0-0.2 10 ^3/uL Nucleated Red Blood Cells 0.0 % Sodium Level 140 136-145 mmol/L Potassium Level 4.6 3.5-5.1 mmol/L Chloride Level 107 98-107 mmol/L Carbon Dioxide Level 26 20-31 mmol/L Anion Gap 7 5-15 Blood Urea Nitrogen 31 H 9-23 mg/dL Creatinine 1.20 H 0.550-1.02 mg/dL Glomerular Filtration Rate Calc 46 >90 mL/min BUN/Creatinine Ratio 25.8 H 10.0-20.0 Serum Glucose 118 H 74-106 mg/dL Calcium Level 10.2 8.7-10.4 mg/dL Total Bilirubin 0.5 0.2-1.0 mg/dL Aspartate Amino Transferase (AST) 22 13-40 U/L Alanine Aminotransferase (ALT) 16 7-40 U/L Alkaline Phosphatase 86 46-116 U/L B-Type Natriuretic Peptide 297.34 0-100 pg/mL Total Protein 7.1 5.7-8.2 g/dL Albumin 4.9 H 3.2-4.8 g/dL Assessment/Plan Assessment/Plan ASSESSMENT ACUTE ON CHRONIC RESPIRATORY FAILURE CHF EXACERBATION COPD CHRONIC KIDNEY DISEASE STATUS POST CABG HYPERTENSION PLAN ADMIT THE PATIENT TO MED SURGE TO THE HOSPITALIST RESUME HOME MEDICATIONS IV LASIX MED NEBS CONTINUE TREATMENT PER ORDERS. Plan discussed with: Patient My Orders Orders - TODD LOPEZ AGACNP Procedure Category Date Status Time Albuterol Medneb PHA 07/12/24 In Process (Ventolin Medneb) 19:15 Ipratropium Medneb PHA 07/12/24 In Process (Atrovent Medneb) 19:15 Carvedilol Tablet PHA 07/12/24 In Process (Coreg Tablet) 22:00 Atorvastatin (Lipitor) PHA 07/12/24 In Process 22:00 Clopidogrel Bisulfate PHA 07/13/24 In Process (Plavix) 10:00 Duloxetine Hcl PHA 07/13/24 In Process Capsule (Cymbalta 10:00 Aspirin Tablet PHA 07/13/24 In Process 10:00 Furosemide Injection PHA 07/13/24 In Process (Lasix Injection) 10:00 Ranolazine (Ranexa Er) PHA 07/12/24 In Process 22:00 Sacubitril-Valsartan PHA 07/12/24 In Process (Entresto 24-26 Mg 22:00 Basic Metabolic Panel LAB 07/13/24 Verified 04:00 Admit ADMIT 07/12/24 Transmitted 19:06 Ondansetron Hcl PHA 07/12/24 In Process (Zofran) 19:15 Cardiac DIET 07/13/24 Transmitted Diet-2gna,Lofat,Lochol Breakfast Condition: Stable AME 07/12/24 In Process 19:06 Enoxaparin Sodium PHA 07/13/24 In Process (Lovenox) 10:00 Acetaminophen Tablet PHA 07/12/24 In Process (Tylenol Tablet) 19:15 Bedrest With Bathroom AME 07/12/24 In Process Privileg 19:06 Troponin-I Hs LAB 07/12/24 Transmitted 22:25 Date of Service: Jul 12, 2024 Billing Provider: TODD LOPEZ Common Visit Codes: [id number] INP/OBS CARE (HIGH) TODD LOPEZ Jul 12, 2024 22:32
[2024-07-12] MEDS: CARVEDILOL 3.125 MG TAB PO SCH (23:30)
[2024-07-12] MEDS: SACUBITRIL-VALSARTAN 24mg/26mg TAB PO SCH (23:31)
[2024-07-12] MEDS: ATORVASTATIN 20 MG TAB PO SCH (23:31)
[2024-07-12] MEDS: RANOLAZINE ER 500 MG TAB PO SCH (23:31)
[2024-07-13] VITALS (18 sets, daily range): BP systolic 101–123; BP diastolic 56–75; PULSE 59–88; RESP 16–19; TEMP 97.4–98.5; O2SAT 91–100
[2024-07-13] MEDS: ONDANSETRON HCL 4 MG/2 ML VIAL IV PRN (04:49)
[2024-07-13 05:41] LABS: Chloride 105 mmol/L (98-107); Potassium 4.3 mmol/L (3.5-5.1); Sodium 140 mmol/L (136-145)
[2024-07-13 05:42] LABS: Anion Gap 9 (5-15); Calcium 9.6 mg/dL (8.7-10.4); Carbon Dioxide 26 mmol/L (20-31)
[2024-07-13 05:47] LABS: BUN/Creatinine Ratio 25.9 (10.0-20.0)
[2024-07-13 06:18] LABS: Blood Urea Nitrogen 36 mg/dL (9-23); Glucose 213 mg/dL (74-106)
[2024-07-13] MEDS: ENOXAPARIN SOD 30 MG/0.3 ML SYRINGE SC SCH (09:27)
[2024-07-13] MEDS: FUROSEMIDE 20 MG/2 ML VIAL IV SCH (09:29)
[2024-07-13] MEDS: ASPirin 81 mg TAB PO SCH (09:30)
[2024-07-13] MEDS: CLOPIDOGREL BISULFATE 75 MG TAB PO SCH (09:30)
[2024-07-13] MEDS: traMADol HCL 50 MG TAB PO ONE (09:30)
[2024-07-13] MEDS: DULoxetine HCL 30 MG CAP PO SCH (09:30)
[2024-07-13] MEDS ORDERED: AZITHROMYCIN 500MG/ 250ML 250 ML IV SCH (10:00)
--- NOTE | 2024-07-13 11:30 | DVHPN2 ---
Subjective The patient seen and examined at bedside. Complains of shortness of breath. Complains of pain. Asking for morphine. Reviewed: Care Plan, H&P, Labs, Medications, Previous Orders, Radiology Changes from previous H/P or p: No Changes Objective Vitals Vital Signs Date Time Temp Pulse Resp B/P (MAP) Pulse Ox O2 Delivery O2 Flow Rate FiO2 07/13/24 09:29 103/57 07/13/24 09:29 68 07/13/24 08:51 97.9 19 92 97.9 07/13/24 06:41 Nasal Cannula* 3 32 Intake/Output Intake and Output 07/13/24 07:00 Intake Total 120 ml Balance 120 ml Intake Oral 120 ml # Voids 1 General Appearance: Alert, Oriented X3, Cooperative HEENT: Atraumatic, PERRLA, EOMI, Mucous membr. moist/pink Neck: Supple Lungs: Clear to auscultation, Normal air movement Cardiovascular: Regular rate, Normal S1, Normal S2, No murmurs, Gallops, Rubs Abdomen: Normal bowel sounds, Soft, No tenderness Neuro: Cranial nerves 3-12 NL Psych/Mental Status: Mental status NL Medications Current Medications Medications Dose Ordered Sig/Asha Route Start Time Stop Time Status Last Admin Dose Admin Albuterol 2.5 mg Q6HPRN PRN NEB 07/12/24 19:15 07/13/24 06:41 2.5 MG Ipratropium [place] 0.5 mg Q6HPRN PRN NEB 07/12/24 19:15 07/13/24 06:41 0.5 MG Carvedilol 3.125 mg Q12HR PO 07/12/24 22:00 07/13/24 09:29 3.125 MG Atorvastatin Calcium 20 mg HS PO 07/12/24 22:00 07/12/24 23:31 20 MG Clopidogrel Bisulfate 75 mg DAILY PO 07/13/24 10:00 07/13/24 09:30 75 MG Duloxetine HCl 30 mg DAILY PO 07/13/24 10:00 07/13/24 09:30 30 MG Aspirin 81 mg DAILY PO 07/13/24 10:00 07/13/24 09:30 81 MG Furosemide 20 mg DAILY IV 07/13/24 10:00 07/13/24 09:29 20 MG Ranolazine 500 mg BID PO 07/12/24 22:00 07/13/24 09:30 500 MG Sacubitril/ Valsartan 1 tab BID PO 07/12/24 22:00 07/13/24 09:29 1 TAB Ondansetron HCl 4 mg Q4HP PRN IV 07/12/24 19:15 07/13/24 10:20 4 MG Enoxaparin Sodium 30 mg DAILY SC 07/13/24 10:00 07/13/24 09:27 30 MG Acetaminophen 650 mg Q6HP PRN PO 07/12/24 19:15 07/13/24 04:48 650 MG Laboratory Results Laboratory Tests 07/12/24 14:10 07/13/24 04:36 Chemistry Test 07/12/24 14:10 07/13/24 04:36 Albumin 4.9 g/dL (3.2-4.8) H Calcium Level 10.2 mg/dL (8.7-10.4) 9.6 mg/dL (8.7-10.4) Total Protein 7.1 g/dL (5.7-8.2) Coagulation Test 07/12/24 23:16 D-Dimer, Quantitative 0.54 mg/L FEU (0.0-0.49) H Cardiac Markers Test 07/12/24 14:10 B-Type Natriuretic Peptide 297.34 pg/mL (0-100) LFT Test 07/12/24 14:10 Alanine Aminotransferase (ALT) 16 U/L (7-40) Alkaline Phosphatase 86 U/L (46-116) Aspartate Amino Transferase (AST) 22 U/L (13-40) Total Bilirubin 0.5 mg/dL (0.2-1.0) Urinalysis Test 07/12/24 16:00 Urine Color Light-yellow (Yellow) Urine Clarity Clear (Clear) Urine pH 5.0 (5.0-9.0) Urine Specific [place] 1.014 (1.001-1.035) Urine Protein Negative (Negative) Urine Ketones Negative (Negative) Urine Blood Negative /uL (Negative) Urine Nitrite Negative (Negative) Urine Bilirubin Negative (Negative) Urine Urobilinogen Normal mg/dL (Negative) Urine Leukocyte Esterase 1+ /uL (Negative) Urine RBC 1 /hpf (0 - 4) Urine Microscopic WBC 2 /HPF (0-5) Urine Squamous Epithelial Cells Few /hpf (<5) Urine Bacteria None seen /hpf (None Seen) Urine Hyaline Casts Mod /lpf (0 - 2) Urine Mucus Few (None Seen) Urine Glucose Normal mg/dL (Normal) Labs and/or images reviewed: Labs reviewed by me Assessment/Plan Assessment/Plan Acute on chronic respiratory failure. CHF exacerbation COPD Chronic kidney disease stage 3 status post CABG Hypertension. Continuing current management. Continuing with oxygen support Continuing with Lasix Continuing with hypertensive medication. I will give the patient morphine 1 mg IV q.4 p.r.n. for pain This medical document was created using an electronic medical record system with [id number] direct computerized dictation system. Although this document has been carefully reviewed, there may still be some phonetic and typographical errors. These areas are purely typographical due to imperfections of the software programs, and do not reflect any compromise in the patient's medical care. Plan discussed with: Patient Date of Service: Jul 13, 2024 Billing Provider: LUIS REICH MD Common Visit Codes: [id number] INP/OBS CARE(HIGH) LUIS REICH MD Jul 13, 2024 11:30
[2024-07-13] MEDS: MORPHINE SULFATE INJ 2 MG/ml SYRG IV PRN (14:24)
[2024-07-13] MEDS: IPRATROPIUM BROM 0.5 MG/2.5ML INH SOL NEB SCH (19:11)
[2024-07-13] MEDS: ALBUTEROL SULF 2.5 MG/0.5ML(0.5%) NEB SOLN NEB SCH (19:11)
[2024-07-14] VITALS (19 sets, daily range): BP systolic 85–116; BP diastolic 41–61; PULSE 70–95; RESP 16–19; TEMP 97.9–98.2; O2SAT 70–100
--- NOTE | 2024-07-14 10:10 | DVHPN2 ---
Subjective The patient seen and examined at bedside. Complains of shortness of breath. Complains of pain. State that the morphine we give her is not enough. Reviewed: Care Plan, H&P, Labs, Medications, Previous Orders, Radiology Changes from previous H/P or p: No Changes Objective Vitals Vital Signs Date Time Temp Pulse Resp B/P (MAP) Pulse Ox O2 Delivery O2 Flow Rate FiO2 07/14/24 09:54 81 18 100 07/14/24 09:48 Nasal Cannula 3.0 07/14/24 09:48 32 07/14/24 09:00 97.9 112/41 (64) 97.9 Intake/Output Intake and Output 07/14/24 07:00 Intake Total 1600 ml Balance 1600 ml Intake Oral 1600 ml # Voids 9 # Bowel Movements 2 General Appearance: Alert, Oriented X3, Cooperative HEENT: Atraumatic, PERRLA, EOMI, Mucous membr. moist/pink Neck: Supple Lungs: Clear to auscultation, Normal air movement Cardiovascular: Regular rate, Normal S1, Normal S2, No murmurs, Gallops, Rubs Abdomen: Normal bowel sounds, Soft, No tenderness Neuro: Cranial nerves 3-12 NL Psych/Mental Status: Mental status NL Medications Current Medications Medications Dose Ordered Sig/Asha Route Start Time Stop Time Status Last Admin Dose Admin Albuterol 2.5 mg Q6HPRN PRN NEB 07/12/24 19:15 07/13/24 14:13 2.5 MG Ipratropium [place] 0.5 mg Q6HPRN PRN NEB 07/12/24 19:15 07/13/24 14:13 0.5 MG Carvedilol 3.125 mg Q12HR PO 07/12/24 22:00 07/14/24 08:04 3.125 MG Atorvastatin Calcium 20 mg HS PO 07/12/24 22:00 07/13/24 21:02 20 MG Clopidogrel Bisulfate 75 mg DAILY PO 07/13/24 10:00 07/14/24 08:05 75 MG Duloxetine HCl 30 mg DAILY PO 07/13/24 10:00 07/14/24 08:05 30 MG Aspirin 81 mg DAILY PO 07/13/24 10:00 07/14/24 08:03 81 MG Furosemide 20 mg DAILY IV 07/13/24 10:00 07/14/24 08:43 20 MG Ranolazine 500 mg BID PO 07/12/24 22:00 07/14/24 08:05 500 MG Sacubitril/ Valsartan 1 tab BID PO 07/12/24 22:00 07/14/24 08:04 1 TAB Ondansetron HCl 4 mg Q4HP PRN IV 07/12/24 19:15 07/14/24 08:05 4 MG Enoxaparin Sodium 30 mg DAILY SC 07/13/24 10:00 07/14/24 08:44 30 MG Acetaminophen 650 mg Q6HP PRN PO 07/12/24 19:15 07/13/24 04:48 650 MG Morphine Sulfate 1 mg Q6HP PRN IV 07/13/24 12:30 07/14/24 03:05 1 MG Albuterol 2.5 mg Q4HR NEB 07/13/24 18:00 07/14/24 09:48 2.5 MG Ipratropium [place] 0.5 mg Q4HR NEB 07/13/24 18:00 07/14/24 09:48 0.5 MG Laboratory Results Laboratory Tests 07/12/24 14:10 07/13/24 04:36 Urinalysis Test 07/12/24 16:00 Urine Color Light-yellow (Yellow) Urine Clarity Clear (Clear) Urine pH 5.0 (5.0-9.0) Urine Specific [place] 1.014 (1.001-1.035) Urine Protein Negative (Negative) Urine Ketones Negative (Negative) Urine Blood Negative /uL (Negative) Urine Nitrite Negative (Negative) Urine Bilirubin Negative (Negative) Urine Urobilinogen Normal mg/dL (Negative) Urine Leukocyte Esterase 1+ /uL (Negative) Urine RBC 1 /hpf (0 - 4) Urine Microscopic WBC 2 /HPF (0-5) Urine Squamous Epithelial Cells Few /hpf (<5) Urine Bacteria None seen /hpf (None Seen) Urine Hyaline Casts Mod /lpf (0 - 2) Urine Mucus Few (None Seen) Urine Glucose Normal mg/dL (Normal) Labs and/or images reviewed: Labs reviewed by me Assessment/Plan Assessment/Plan Acute on chronic respiratory failure. CHF exacerbation COPD Chronic kidney disease stage 3 status post CABG Hypertension. Continuing current management. Continuing with oxygen support Continuing with Lasix Continuing with hypertensive medication. I will not increase her pain medication. The patient sitting comfortable on bed. Continue the patient morphine 1 mg IV q.4 p.r.n. for pain PT to get the patient out of bed and ambulate. Discharge planning. This medical document was created using an electronic medical record system with [employer] direct computerized dictation system. Although this document has been carefully reviewed, there may still be some phonetic and typographical errors. These areas are purely typographical due to imperfections of the software programs, and do not reflect any compromise in the patient's medical care. Plan discussed with: Patient My Orders Orders - LUIS REICH MD Procedure Category Date Status Time Morphine Sulfate PHA 07/13/24 In Process Injection 12:30 Date of Service: Jul 14, 2024 Billing Provider: LUIS REICH MD Common Visit Codes: [id number] INP/OBS CARE(HIGH) LUIS REICH MD Jul 14, 2024 10:10
[2024-07-15] VITALS (14 sets, daily range): BP systolic 104–121; BP diastolic 49–78; PULSE 70–89; RESP 18–20; TEMP 36.8; O2SAT 94–100
[2024-07-15 07:07] LABS: Basophils # (auto) 0.1 10 ^3/uL (0-0.2); Basophils % (auto) 0.8 % (0.0-2.0); Calcium 9.8 mg/dL (8.7-10.4); Chloride 106 mmol/L (98-107); Eosinophils # (auto) 0.3 10 ^3/uL (0-0.8); Eosinophils % (auto) 3.6 % (0.0-7.0); Hematocrit 39.5 % (36.0-46.0); Hemoglobin 12.9 g/dL (12.2-16.2); Lymphocytes # (auto) 2.9 10 ^3/uL (0.4-5.4); Lymphocytes % (auto) 34.6 % (10.0-50.0); Mean Corpuscular Hemoglobin 29.4 pg (28.0-32.0); Mean Corpuscular Hgb Conc. 32.6 g/dL (32.0-36.0); Mean Corpuscular Volume 90.2 fL (80.0-100.0); Monocytes # (auto) 0.9 10 ^3/uL (0-1.3); Monocytes % (auto) 10.3 % (0.0-12.0); Neutrophils # (auto) 4.3 10 ^3/uL (1.6-8.6); Neutrophils % (auto) 50.7 % (37.0-80.0); Nucleated Red Blood Cells % 0.2 %; Platelet Count (auto) 253 10^3/uL (140-450); Potassium 5.1 mmol/L (3.5-5.1); Red Blood Cells 4.38 10^6/uL (4.0-5.20); Red Cell Distribution Width 14.2 % (11.8-14.3); Sodium 140 mmol/L (136-145); White Blood Cell 8.4 10^3/uL (4.4-10.8)
[2024-07-15 07:08] LABS: Anion Gap 5 (5-15); Carbon Dioxide 29 mmol/L (20-31)
[2024-07-15 07:13] LABS: BUN/Creatinine Ratio 28.5 (10.0-20.0); Glucose 84 mg/dL (74-106)
[2024-07-15 07:14] LABS: Blood Urea Nitrogen 39 mg/dL (9-23)
--- NOTE | 2024-07-15 10:49 | ECG ---
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
--- NOTE | 2024-07-15 11:29 | DVHPN2 ---
Subjective The patient seen and examined at bedside. Complains of shortness of breath. Complains of pain. State that the morphine we give her is not enough. Reviewed: Care Plan, H&P, Labs, Medications, Previous Orders, Radiology Objective Vitals Vital Signs Date Time Temp Pulse Resp B/P (MAP) Pulse Ox O2 Delivery O2 Flow Rate FiO2 07/15/24 10:52 76 19 105/51 07/15/24 09:48 98 07/15/24 09:48 Nasal Cannula 3.0 07/15/24 09:48 32 07/15/24 09:00 98.0 98.0 Intake/Output Intake and Output 07/15/24 07:00 Intake Total 1750 ml Balance 1750 ml Intake Oral 1750 ml # Voids 11 General Appearance: Alert, Oriented X3, Cooperative HEENT: Atraumatic, PERRLA, EOMI, Mucous membr. moist/pink Neck: Supple Lungs: Clear to auscultation, Normal air movement Cardiovascular: Regular rate, Normal S1, Normal S2, No murmurs, Gallops, Rubs Abdomen: Normal bowel sounds, Soft, No tenderness Neuro: Cranial nerves 3-12 NL Psych/Mental Status: Mental status NL Medications Current Medications Medications Dose Ordered Sig/Asha Route Start Time Stop Time Status Last Admin Dose Admin Albuterol 2.5 mg Q6HPRN PRN NEB 07/12/24 19:15 07/13/24 14:13 2.5 MG Ipratropium [place] 0.5 mg Q6HPRN PRN NEB 07/12/24 19:15 07/13/24 14:13 0.5 MG Carvedilol 3.125 mg Q12HR PO 07/12/24 22:00 07/14/24 08:04 3.125 MG Atorvastatin Calcium 20 mg HS PO 07/12/24 22:00 07/14/24 22:22 20 MG Clopidogrel Bisulfate 75 mg DAILY PO 07/13/24 10:00 07/15/24 09:28 75 MG Duloxetine HCl 30 mg DAILY PO 07/13/24 10:00 07/15/24 09:28 30 MG Aspirin 81 mg DAILY PO 07/13/24 10:00 07/15/24 09:28 81 MG Furosemide 20 mg DAILY IV 07/13/24 10:00 07/15/24 09:27 20 MG Ranolazine 500 mg BID PO 07/12/24 22:00 07/15/24 09:28 500 MG Sacubitril/ Valsartan 1 tab BID PO 07/12/24 22:00 07/15/24 09:27 1 TAB Ondansetron HCl 4 mg Q4HP PRN IV 07/12/24 19:15 07/15/24 10:50 4 MG Enoxaparin Sodium 30 mg DAILY SC 07/13/24 10:00 07/14/24 08:44 30 MG Acetaminophen 650 mg Q6HP PRN PO 07/12/24 19:15 07/13/24 04:48 650 MG Morphine Sulfate 1 mg Q6HP PRN IV 07/13/24 12:30 07/15/24 10:52 1 MG Albuterol 2.5 mg Q4HR NEB 07/13/24 18:00 07/15/24 09:48 2.5 MG Ipratropium [place] 0.5 mg Q4HR NEB 07/13/24 18:00 07/15/24 09:49 0.5 MG Laboratory Results Laboratory Tests 07/15/24 05:15 Chemistry Test 07/15/24 05:15 Calcium Level 9.8 mg/dL (8.7-10.4) Urinalysis Test 07/12/24 16:00 Urine Color Light-yellow (Yellow) Urine Clarity Clear (Clear) Urine pH 5.0 (5.0-9.0) Urine Specific [place] 1.014 (1.001-1.035) Urine Protein Negative (Negative) Urine Ketones Negative (Negative) Urine Blood Negative /uL (Negative) Urine Nitrite Negative (Negative) Urine Bilirubin Negative (Negative) Urine Urobilinogen Normal mg/dL (Negative) Urine Leukocyte Esterase 1+ /uL (Negative) Urine RBC 1 /hpf (0 - 4) Urine Microscopic WBC 2 /HPF (0-5) Urine Squamous Epithelial Cells Few /hpf (<5) Urine Bacteria None seen /hpf (None Seen) Urine Hyaline Casts Mod /lpf (0 - 2) Urine Mucus Few (None Seen) Urine Glucose Normal mg/dL (Normal) Assessment/Plan Assessment/Plan Acute on chronic respiratory failure. CHF exacerbation COPD Chronic kidney disease stage 3 status post CABG Hypertension. Continuing current management. Continuing with oxygen support Continuing with Lasix Continuing with hypertensive medication. I will not increase her pain medication. The patient sitting comfortable on bed. Continue the patient morphine 1 mg IV q.4 p.r.n. for pain PT to get the patient out of bed and ambulate. Discharge planning. This medical document was created using an electronic medical record system with [employer] direct computerized dictation system. Although this document has been carefully reviewed, there may still be some phonetic and typographical errors. These areas are purely typographical due to imperfections of the software programs, and do not reflect any compromise in the patient's medical care. LUIS REICH MD Jul 15, 2024 11:29
--- NOTE | 2024-07-16 09:51 | ECG ---
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
--- NOTE | 2024-07-16 19:58 | DVHDS2 ---
Discharge Summary Date of Admission Jul 12, 2024 at 19:06 Date of Discharge: Jul 15, 2024 Admitting Diagnosis Acute on chronic respiratory failure. CHF exacerbation COPD Chronic kidney disease stage 3 status post CABG Hypertension. Labs/Diagnostic Data: Laboratory Results Test 07/15/24 05:15 07/12/24 23:16 07/12/24 16:00 07/12/24 14:10 White Blood Count 8.4 10^3/uL (4.4-10.8) Red Blood Count 4.38 10^6/uL (4.0-5.20) Hemoglobin 12.9 g/dL (12.2-16.2) Hematocrit 39.5 % (36.0-46.0) Mean Corpuscular Volume 90.2 fL (80.0-100.0) Mean Corpuscular Hemoglobin 29.4 pg (28.0-32.0) Mean Corpuscular Hemoglobin Concent 32.6 g/dL (32.0-36.0) Red Cell Distribution Width 14.2 % (11.8-14.3) Platelet Count 253 10^3/uL (140-450) Mean Platelet Volume 9.0 fL (6.9-10.8) Neutrophils (%) (Auto) 50.7 % (37.0-80.0) Lymphocytes (%) (Auto) 34.6 % (10.0-50.0) Monocytes (%) (Auto) 10.3 % (0.0-12.0) Eosinophils (%) (Auto) 3.6 % (0.0-7.0) Basophils (%) (Auto) 0.8 % (0.0-2.0) Neutrophils # (Auto) 4.3 10 ^3/uL (1.6-8.6) Lymphocytes # (Auto) 2.9 10 ^3/uL (0.4-5.4) Monocytes # (Auto) 0.9 10 ^3/uL (0-1.3) Eosinophils # (Auto) 0.3 10 ^3/uL (0-0.8) Basophils # (Auto) 0.1 10 ^3/uL (0-0.2) Nucleated Red Blood Cells 0.2 % Sodium Level 140 mmol/L (136-145) Potassium Level 5.1 mmol/L (3.5-5.1) Chloride Level 106 mmol/L (98-107) Carbon Dioxide Level 29 mmol/L (20-31) Anion Gap 5 (5-15) Blood Urea Nitrogen 39 mg/dL (9-23) Creatinine 1.37 mg/dL (0.550-1.02) Glomerular Filtration Rate Calc 39 mL/min (>90) BUN/Creatinine Ratio 28.5 (10.0-20.0) Serum Glucose 84 mg/dL (74-106) Calcium Level 9.8 mg/dL (8.7-10.4) D-Dimer, Quantitative 0.54 mg/L FEU (0.0-0.49) Troponin I High Sensitivity 24 ng/L (</=34) Urine Color Light-yellow (Yellow) Urine Clarity Clear (Clear) Urine pH 5.0 (5.0-9.0) Urine Specific [place] 1.014 (1.001-1.035) Urine Protein Negative (Negative) Urine Ketones Negative (Negative) Urine Blood Negative /uL (Negative) Urine Nitrite Negative (Negative) Urine Bilirubin Negative (Negative) Urine Urobilinogen Normal mg/dL (Negative) Urine Leukocyte Esterase 1+ /uL (Negative) Urine RBC 1 /hpf (0 - 4) Urine Microscopic WBC 2 /HPF (0-5) Urine Squamous Epithelial Cells Few /hpf (<5) Urine Bacteria None seen /hpf (None Seen) Urine Hyaline Casts Mod /lpf (0 - 2) Urine Mucus Few (None Seen) Urine Glucose Normal mg/dL (Normal) Total Bilirubin 0.5 mg/dL (0.2-1.0) Aspartate Amino Transferase (AST) 22 U/L (13-40) Alanine Aminotransferase (ALT) 16 U/L (7-40) Alkaline Phosphatase 86 U/L (46-116) B-Type Natriuretic Peptide 297.34 pg/mL (0-100) Total Protein 7.1 g/dL (5.7-8.2) Albumin 4.9 g/dL (3.2-4.8) Other Laboratory Tests 07/15/24 05:15 Brief Hx & Hospital Course: This is a 78 years old female come into emergency department for severe shortness a breath. The patient had multiple admission for the same complaint. Patient also reports being fatigue and generalized weakness. Patient had two day worsening shortness for breath with left-sided session. The patient had just finished her antibiotic regimen prior to this admission. The patient was admitted. The patient was treated for acute on chronic respiratory failure and COPD exacerbation. The patient was given IV antibiotic, nebulizer, Solu-Medrol. The patient improved and I will discharge her home today. I advised her to follow up with primary care physician 1-2 weeks. Activity as tolerated. Diet per home diet. Physical exam: HEENT: Normocephalic atraumatic pupils equal react to light and accommodation. Extraocular muscles intact, conjunctiva pink, oropharynx moist, no thrush, no exudate. Lymphatic: No lymphadenopathy Cardiovascular exam: S1, S2 was heard. No murmurs, rubs, gallops Lung: Clear on auscultation bilaterally, no wheeze, rale, rhonchi. GI: Abdominal soft, nondistended, nontenderness, positive bowel sounds. Extremity: No crepitus, cyanosis, edema. Pedal pulses present bilateral. Full range of motion. Skin: Normal turgor, no rash. Psych: Alert, oriented x3. Neurology: No focal deficits, cranial nerve II to XII grossly intact. This medical document was created using an electronic medical record system with [employer] direct computerized dictation system. Although this document has been carefully reviewed, there may still be some phonetic and typographical errors. These areas are purely typographical due to imperfections of the software programs, and do not reflect any compromise in the patient's medical care. Condition at Discharge: Stable Final Diagnosis/Problems List Acute on chronic respiratory failure. CHF exacerbation COPD Chronic kidney disease stage 3 status post CABG Hypertension. Discharge Disposition: Home Discharge Instruct/Medications Diet: Regular Activity: No Restrictions, As Tolerated Follow Up/Referral: pcp 1-2 weeks Medications: resume home meds Discharge Statement: "Patient was advised to return to the ER or call 911 if any headaches, dizziness, shortness of breath, chest pain, abdominal pain, bleeding, fevers, or worsening of medical condition. Patient was counseled about treatment plan, medications, possible side effects, patientverbalized understanding. All questions were answered to the best of my ability. This discharge took greater then 30 minutes in planning, reviewing documentation, counseling the patient, and discussing with other team members." ASSESSMENT ASSESSMENT Assessment chest pain Date of Service: Jul 15, 2024 Billing Provider: LUIS REICH MD Common Visit Codes: [id number] INP/OBS CARE(HIGH) LUIS REICH MD Jul 16, 2024 19:58
== END 2024-07-15 16:58 | disposition home or self-care (01) | DRG 291 ==
LOC: EDBD 13:12 → ER 13:12 → OVERFLOW 19:06 → CENTRAL 23:48
PROVIDERS: ADMIT Internal Medicine; ATTEND Internal Medicine
PROC: 05H933Z Insertion of Infusion Device into Right Brachial Vein, Percutaneous Approach (ICD-10-PCS; principal; 2024-07-12)
PROC: B54MZZA Ultrasonography of Right Upper Extremity Veins, Guidance (ICD-10-PCS; 2024-07-12)
DX: I13.0 Hypertensive heart and chronic kidney disease with heart failure and stage 1 through stage 4 chronic kidney disease, or unspecified chronic kidney disease (principal); I50.23 Acute on chronic systolic (congestive) heart failure; J96.20 Acute and chronic respiratory failure, unspecified whether with hypoxia or hypercapnia; N18.30 Chronic kidney disease, stage 3 unspecified; J44.89 Other specified chronic obstructive pulmonary disease; K21.9 Gastro-esophageal reflux disease without esophagitis; E78.5 Hyperlipidemia, unspecified; J98.4 Other disorders of lung; F32.A Depression, unspecified; F41.9 Anxiety disorder, unspecified; M10.9 Gout, unspecified; I25.10 Atherosclerotic heart disease of native coronary artery without angina pectoris; Z88.5 Allergy status to narcotic agent; Z95.1 Presence of aortocoronary bypass graft; Z79.891 Long term (current) use of opiate analgesic; Z79.899 Other long term (current) drug therapy; Z79.82 Long term (current) use of aspirin; Z90.710 Acquired absence of both cervix and uterus; Z83.3 Family history of diabetes mellitus; Z88.1 Allergy status to other antibiotic agents; Z87.442 Personal history of urinary calculi
CPT/HCPCS: 36415; 71045; 80048; 80053; 81001; 83880; 84484; 85025; 85379; 93005; 94640; 96374; 96375; 99291; G0378; J2405

== ENCOUNTER 2024-07-20 18:43 | Inpatient (IN) | payer OTHER, MEDICAID ==
[~2024-07-20] VITALS: Ht 162.6 cm; Wt 72.7 kg
[2024-07-20 20:30] LABS: Basophils # (auto) 0.1 10 ^3/uL (0-0.2); Eosinophils # (auto) 0.3 10 ^3/uL (0-0.8); Eosinophils % (auto) 3.2 % (0.0-7.0); Hematocrit 42.8 % (36.0-46.0); Hemoglobin 13.9 g/dL (12.2-16.2); Lymphocytes # (auto) 2.4 10 ^3/uL (0.4-5.4); Lymphocytes % (auto) 27.9 % (10.0-50.0); Mean Corpuscular Hemoglobin 28.8 pg (28.0-32.0); Mean Corpuscular Hgb Conc. 32.3 g/dL (32.0-36.0); Monocytes % (auto) 11.6 % (0.0-12.0); Neutrophils # (auto) 4.9 10 ^3/uL (1.6-8.6); Neutrophils % (auto) 56.3 % (37.0-80.0); Nucleated Red Blood Cells % 0.1 %; Platelet Count (auto) 292 10^3/uL (140-450); Red Blood Cells 4.81 10^6/uL (4.0-5.20); White Blood Cell 8.7 10^3/uL (4.4-10.8)
[2024-07-20] MEDS: OXYCODONE W/ ACETAMINOPHEN 5/325MG TABLET PO ONE (20:40)
[2024-07-20 20:47] LABS: Alanine Aminotransferase 22 U/L (7-40); Alkaline Phosphatase 80 U/L (46-116); Anion Gap 9 (5-15); Aspartate Aminotransferase 17 U/L (13-40); BUN/Creatinine Ratio 29.7 (10.0-20.0); Calcium 10.3 mg/dL (8.7-10.4); Carbon Dioxide 29 mmol/L (20-31); Chloride 104 mmol/L (98-107); Glucose 97 mg/dL (74-106); Potassium 4.9 mmol/L (3.5-5.1); Sodium 142 mmol/L (136-145); Total Protein 6.7 g/dL (5.7-8.2)
[2024-07-20 20:49] LABS: Albumin 4.8 g/dL (3.2-4.8); Bilirubin, Total 0.3 mg/dL (0.2-1.0); Blood Urea Nitrogen 49 mg/dL (9-23)
[2024-07-20 20:52] LABS: Urine Bacteria FEW /hpf (None Seen); Urine Blood Negative /uL (Negative); Urine Clarity Clear (Clear); Urine Color Yellow (Yellow); Urine Hyaline Cast MOD /lpf (0 - 2); Urine Mucus FEW (None Seen); Urine Protein, UAD Negative (Negative); Urine Specific Gravity 1.022 (1.001-1.035); Urine Squamous Epithelial Cell FEW /hpf (<5); Urine Urobilinogen Normal (Negative); Urine WBC 1 /HPF (0-5)
--- NOTE | 2024-07-20 20:52 | DVH ---
Exam: CT CT AB PEL WO CON-NO ORAL OR IV History: ABDOMINAL PAIN Comparison Study: CT CT AB PEL WO CON-NO ORAL OR IV on DOS: 04/29/24, CT CT AB PEL WO CON-NO ORAL OR IV on DOS: 03/20/24, CT CT AB PEL WO CON-NO ORAL OR IV on DOS: 03/02/24, CT CT AB PEL WO CON-NO ORAL O R IV on DOS: 02/15/24, CT CT AB PEL WO CON-NO ORAL OR IV on DOS: 10/30/23 Technique: Multidetector spiral CT of the abdomen was performed from lung bases to pubic symphysis. Imaging was performed without IV contrast. Axial, coronal and sagittal multiplanar reformats were ob tained from the axial data set by the technologist. Radiation Dose : 1. Abdomen/Pelvis: CTDIvol 18.96 mGy, DLP 959.59 mGy*cm. Findings: Evaluation of solid organs is limited due to lack of intravenous contrast use. Lung Bases: No acute or significant lung base finding. Normal heart size. No pleural or pericardial effusion. Liver: The liver is normal in size. No focal lesions. Gallbladder and Biliary Tree: Unremarkable Spleen: Unremarkable Pancreas: The pancreas is grossly normal in appearance. Adrenal Glands: Unremarkable Kidneys: Kidneys are grossly normal without calculi or hydronephrosis. Bladder: Grossly unremarkable for degree of distention. Bowel: The stomach is grossly normal in appearance. Small bowel and colon are normal in caliber and d istribution. The appendix is not visualized; however, no secondary findings of acute appendicitis id entified. Sigmoid diverticulosis without evidence of diverticulitis. Ascites: Absent Lymphadenopathy: No mesenteric, retroperitoneal or periportal lymphadenopathy. Abdominal Wall and Mesentery: Unremarkable. Vasculature: The visualized abdominal aorta is normal in size and caliber. Evaluation of abdominal a nd pelvic vessels is limited due to lack of intravenous contrast. Diffuse atherosclerotic calcificati ons are seen throughout the aorta. Pelvic Organs: Unremarkable Musculoskeletal: No aggressive focal bony lesions, acute fractures or dislocation. Moderate to severe degenerative changes throughout the thoracic and lumbar spine. IMPRESSION: 1. No acute abdominal or pelvic findings. Radiation optimization: All CT scans at this facility use at least one of these dose optimization lucy hniques: automated exposure control mA and/or kV adjustment per patient size (includes targeted exam s where dose is matched to clinical indication) or iterative reconstruction.
--- NOTE | 2024-07-20 21:35 | ED.PDOC ---
History of Present Illness HPI Comments 69 y/o F presents with c/o bilateral lower quadrant pain and dysuri for the past 1x month that worsened within the past week. She comments on history of frequent UTI's and symptoms feeling similar to when she had them in the past. Rates pain a 10/10 and being sharp in quality. Denies having any nausea, vomi ting, diarrhea, fever, chills, or other associated symptoms or modifiers at this time. Chief Complaint: Pelvic Pain Time Seen by MD: 19:10 Primary Care Provider: HORTENCIA Reviewed Notes: Nurses Notes, Medications, Allergies Allergies: Coded Allergies: Ceftriaxone (Verified Allergy, Intermediate, generalized rash, 11/08/22) ASSOCIATE EMBALMER/FUNERAL DIRECTORCARLENE MEJIA Codeine (Verified Allergy, Unknown, 09/01/20) Hydrocodone (Verified Allergy, Unknown, rash, 05/18/23) tylenol is okay per patient Home Meds Active Scripts Duloxetine Hydrochloride (Duloxetine Hydrochloride) 30 Mg Cap, 30 MG PO DAILY for 30 Days, #30 CAP Prov:WINSOME GOMEZ MD 04/29/24 Phenazopyridine HCl (Phenazopyridine Hydrochlo) 200 Mg Tab, 200 MG PO TID for 3 Days, #9 TAB Prov:NIRALI MARTINO RESIDENT 04/10/24 Primidone (MYSOLINE TABLET) 50 Mg Tb, 25 MG PO HS for 30 Days, #15 TAB Prov:INRALI MARTINO RESIDENT 04/10/24 Clopidogrel Bisulfate (CLOPIDOGREL) 75 Mg Tab, 75 MG PO DAILY for 30 Days, #30 TAB 5 Refills Prov:YENNY FRAIRE MD 11/26/23 Tamsulosin Hcl (Flomax) 0.4 Mg Cap, 0.4 MG PO QPM for 30 Days, #30 CAP Prov:BHARTA MICHELLE RESIDENT 10/18/23 Ranolazine (Ranolazine ER) 500 Mg Tab, 500 MG PO BID for 30 Days, #60 TAB 2 Refills Prov:MAGAN RUSS RESIDENT 09/16/23 Sacubitril-Valsartan (Entresto 24-26 mg) 1 Tab Tab, 1 TAB PO BID for 30 Days, #60 TAB 3 Refills Prov:LEANNA BROWN DO 05/22/23 Reported Medications Oxycodone W/ Acetaminophen (Percocet 5/325MG) 1 Tab Tb, 1 TAB PO QID, #120 TAB 01/29/24 Polyethylene Glycol 3350 (Miralax) 17 Gm Pow, 17 GM PO DAILY PRN for FOR CONSTIPATION for 30 Days, #30 01/28/24 Lactobacillus (ACIDOPHILUS) Cap, 1 CAP PO BID for 30 Days, #60 09/05/23 Ipratropium-Albuterol (Ipratropium [place]/Albut) 1 Yuli Yuli, 1 VIAL NEB Q6HPRN PRN for SHORTNESS OF BREATH for 13 Days, #180 09/05/23 Fluticasone-Salmeterol (Fluticasone Propionate/SA 250-50 Mcg/Dose) 1 Aer Aer, 1 PUFF INH BID for 30 Days, #60 09/05/23 Albuterol Sulfate (Albuterol Sulfate Hfa) 108 Mcg/Act Aer, 2 PUFF INH Q4HPRN PRN for dyspnea for 17 Days, #18 09/05/23 Cholecalciferol (VITAMIN D3) 2,000 Unit Tab, 1 TAB PO BID for 30 Days, #60 08/28/23 Multiple Vitamin (Tab-A-Radha) Tab, 1 TAB PO DAILY for 30 Days, #30 08/28/23 Aspirin (Aspir-Low) 81 Mg Tab, 1 TAB PO DAILY for 30 Days, #30 08/28/23 Furosemide (Furosemide) 40 Mg Tab, 1 TAB PO DAILY 08/28/23 Ascorbic Acid (VITAMIN C TABLET) 500 Mg Tb, 1 TAB PO BID for 30 Days, #60 05/18/23 Pantoprazole Sodium Sesquihydr (Pantoprazole Sodium) 40 Mg Tab, 1 TAB PO DAILY 05/18/23 Carvedilol (Carvedilol) 3.125 Mg Tab, 1 TAB PO BID for 30 Days, #60 01/02/23 Atorvastatin Calcium (Lipitor) 20 Mg Tab, 1 TAB PO HS for 30 Days, #30 12/30/20 Fluoxetine HCl (Pmdd) (Fluoxetine HCl) 20 Mg Tab, 20 MG PO DAILY, TAB 05/30/20 Information Source: Patient, Emergency Med Personnel Mode of Arrival: EMS Severity: Moderate Timing: Hours Duration: Since onset Prehospital treatment: 12 Lead EKG, Reserve Operator Past Medical History PAST MEDICAL HISTORY: Anemia, Anxiety, Asthma, CAD, CHF, COPD, Depression, GERD, Gout, High Lipids, HTN, Kidney Stones, SD, UTI'S Surgical History: Appendectomy, CABG, Hysterectomy, Pacemaker, PTCA, 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 LEAVE MANAGER History: Ovarian Cysts Family History Family History: Reviewed,noncontributory to illness, Family hx of DM, Family hx of heart gabe Social History Smoker: Non-Smoker Alcohol: Denies ETOH Use Drugs: Denies Drug Use Lives In: Home Gastrointestinal: reports: abdominal pain Genitourinary: reports: dysuria All Other Systems: Reviewed and Negative (negative unless otherwise stated above or in HPI) Physical Exam General Appearance: Mild Distress, Obese HEENT: Normal ENT Inspection, Pharynx Normal, TMs Normal Neck: Full Range of Motion, Non-Tender, Normal, Normal Inspection Respiratory: Chest Non-Tender, Lungs Clear, No Accessory Muscle Use, No Respiratory Distress, Normal Breath Sounds Cardiovascular: No Edema, No JVD, No Murmur, No Gallop, Normal Peripheral Pulses, Regular Rate/Rhythm Breast Exam: Deferred Gastrointestinal: LLQ (tenderness ), No Organomegaly, No Pulsatile Mass, Normal Bowel Sounds, RLQ (tenderness ), Soft Genitalia: Deferred Pelvic: Deferred Rectal: Deferred Extremities: No calf tenderness, Normal capillary refill, Normal inspection, Normal range of motion, Non-tender, No pedal edema Musculoskeletal : Apperance: Normal Neurologic: Alert, spun paste machine operator II-XII nml as Tested, No Motor Deficits, Normal Affect, Normal Mood, No Sensory Deficits Cerebellar Function: Normal Reflexes: Normal Skin: Dry, Normal Color, Warm Lymphatic: No Adenopathy Was a procedure done? Was a procedure done?: No Differential Dx Considerations may include: Differential diagnosis includes but is not limited to: ureteral colic / stone, Aortic aneurysm or dissection, pyelonephritis, acute renal failure, musculoskeletal etiology and others X-Ray, Labs, Meds, VS Vital Signs Date Time Temp Pulse Resp B/P (MAP) Pulse Ox O2 Delivery O2 Flow Rate FiO2 07/20/24 19:43 95.7 69 16 104/60 (75) 98 95.7 07/20/24 18:50 98.9 74 18 129/62 (84) 96 Lab Test 07/20/24 20:24 07/20/24 20:11 Range/Units Urine Color Yellow Yellow Urine Clarity Clear Clear Urine pH 5.0 5.0-9.0 Urine Specific [place] 1.022 1.001-1.035 Urine Protein Negative Negative Urine Ketones Negative Negative Urine Blood Negative Negative /uL Urine Nitrite Negative Negative Urine Bilirubin Negative Negative Urine Urobilinogen Normal Negative mg/dL Urine Leukocyte Esterase 1+ Negative /uL Urine RBC 1 0 - 4 /hpf Urine Microscopic WBC 1 0-5 /HPF Urine Squamous Epithelial Cells Few <5 /hpf Urine Bacteria Few H None Seen /hpf Urine Hyaline Casts Mod 0 - 2 /lpf Urine Granular Casts Few 0 /lpf Urine Mucus Few None Seen Urine Glucose Normal Normal mg/dL White Blood Count 8.7 4.4-10.8 10^3/uL Red Blood Count 4.81 4.0-5.20 10^6/uL Hemoglobin 13.9 12.2-16.2 g/dL Hematocrit 42.8 36.0-46.0 % Mean Corpuscular Volume 89.0 80.0-100.0 fL Mean Corpuscular Hemoglobin 28.8 28.0-32.0 pg Mean Corpuscular Hemoglobin Concent 32.3 32.0-36.0 g/dL Red Cell Distribution Width 14.0 11.8-14.3 % Platelet Count 292 140-450 10^3/uL Mean Platelet Volume 8.4 6.9-10.8 fL Neutrophils (%) (Auto) 56.3 37.0-80.0 % Lymphocytes (%) (Auto) 27.9 10.0-50.0 % Monocytes (%) (Auto) 11.6 0.0-12.0 % Eosinophils (%) (Auto) 3.2 0.0-7.0 % Basophils (%) (Auto) 1.0 0.0-2.0 % Neutrophils # (Auto) 4.9 1.6-8.6 10 ^3/uL Lymphocytes # (Auto) 2.4 0.4-5.4 10 ^3/uL Monocytes # (Auto) 1.0 0-1.3 10 ^3/uL Eosinophils # (Auto) 0.3 0-0.8 10 ^3/uL Basophils # (Auto) 0.1 0-0.2 10 ^3/uL Nucleated Red Blood Cells 0.1 % Sodium Level 142 136-145 mmol/L Potassium Level 4.9 3.5-5.1 mmol/L Chloride Level 104 98-107 mmol/L Carbon Dioxide Level 29 20-31 mmol/L Anion Gap 9 5-15 Blood Urea Nitrogen 49 H 9-23 mg/dL Creatinine 1.65 H 0.550-1.02 mg/dL Glomerular Filtration Rate Calc 31 >90 mL/min BUN/Creatinine Ratio 29.7 H 10.0-20.0 Serum Glucose 97 74-106 mg/dL Lactic Acid Level 1.0 0.4-2.0 mmol/L Calcium Level 10.3 8.7-10.4 mg/dL Total Bilirubin 0.3 0.2-1.0 mg/dL Aspartate Amino Transferase (AST) 17 13-40 U/L Alanine Aminotransferase (ALT) 22 7-40 U/L Alkaline Phosphatase 80 46-116 U/L Total Protein 6.7 5.7-8.2 g/dL Albumin 4.8 3.2-4.8 g/dL Current Medications Medications (Trade) Dose Ordered Sig/Asha Route Start Time Stop Time Status Last Admin Oxycodone/ Acetaminophen (Percocet 5/ 325MG Tablet) 2 tab ONCE ONCE PO 07/20/24 20:15 07/20/24 20:16 DC 07/20/24 20:40 [place] [address] Ph: [phone] DIAGNOSTIC IMAGING Diagnostic Imaging Report : [id number] Signed PATIENT: MONICA JAMES ACCT: [id number] UNIT: [id number] : 1945 LOC: ER ROOM / BED: / AGE / SEX: 78 / F ADM STATUS: REG ER SERVICE 56 ORDERING PHYSICIAN: DESTINEE KYLE MD PROCEDURE(s): ABPL - CT AB PEL WO CON-NO ORAL OR IV REASON: ABDOMINAL PAIN ORDER NUMBER(s): [id number], ACCESSION NUMBER(s): [id number] Exam: CT CT AB PEL WO CON-NO ORAL OR IV History: ABDOMINAL PAIN Comparison Study: CT CT AB PEL WO CON-NO ORAL OR IV on DOS: 04/29/24, CT CT AB PEL WO CON-NO ORAL OR IV on DOS: 03/20/24, CT CT AB PEL WO CON-NO ORAL OR IV on DOS: 03/02/24, CT CT AB PEL WO CON-NO ORAL OR IV on DOS: 02/15/24, CT CT AB PEL WO CON-NO ORAL OR IV on DOS: 10/30/23 Technique: Multidetector spiral CT of the abdomen was performed from lung bases to pubic symphysis. Imaging was performed without IV contrast. Axial, coronal and sagittal multiplanar reformats were obtained from the axial data set by the technologist. Radiation Dose : 1. Abdomen/Pelvis: CTDIvol 18.96 mGy, DLP 959.59 mGy*cm. Findings: Evaluation of solid organs is limited due to lack of intravenous contrast use. Lung Bases: No acute or significant lung base finding. Normal heart size. No pleural or pericardial effusion. Liver: The liver is normal in size. No focal lesions. Gallbladder and Biliary Tree: Unremarkable Spleen: Unremarkable Pancreas: The pancreas is grossly normal in appearance. Adrenal Glands: Unremarkable Kidneys: Kidneys are grossly normal without calculi or hydronephrosis. Bladder: Grossly unremarkable for degree of distention. Bowel: The stomach is grossly normal in appearance. Small bowel and colon are normal in caliber and distribution. The appendix is not visualized; however, no secondary findings of acute appendicitis identified. Sigmoid diverticulosis without evidence of diverticulitis. Ascites: Absent Lymphadenopathy: No mesenteric, retroperitoneal or periportal lymphadenopathy. Abdominal Wall and Mesentery: Unremarkable. Vasculature: The visualized abdominal aorta is normal in size and caliber. Evaluation of abdominal and pelvic vessels is limited due to lack of intravenous contrast. Diffuse atherosclerotic calcifications are seen throughout the aorta. Pelvic Organs: Unremarkable Musculoskeletal: No aggressive focal bony lesions, acute fractures or dislocation. Moderate to severe degenerative changes throughout the thoracic and lumbar spine. IMPRESSION: 1. No acute abdominal or pelvic findings. Radiation optimization: All CT scans at this facility use at least one of these dose optimization techniques: automated exposure control mA and/or kV adjustment per patient size (includes targeted exams where dose is matched to clinical indication) or iterative reconstruction. ATED BY: LUIS ELIZONDO MD DICTATED DATE/TIME: 07/20/242049 SIGNED BY: LUIS ELIZONDO MD SIGNED DATE/TIME: 07/20/242049 CC: Time of 1ST Reevaluation: 19:40 Reevaluation 1ST: Unchanged Patient Education/Counseling: Diagnosis, Treatment Family Education/Counseling: No Family Present Departure 1 Departure Time of Disposition: 21:41 Impression: Primary Impression: UTI (urinary tract infection) Additional Impression: LENORA (acute kidney injury) Disposition: 09 ADMITTED INPATIENT Admit to: Tele Condition: Guarded Discharged With: Self Comments Bilateral Lower Abdominal Pain and UTI with Acute Kidney Injury Chief Complaint: Bilateral lower abdominal pain and dysuria History of Present Illness: 78-year-old female presents to the emergency department with bilateral lower abdominal pain and dysuria that has been present for one month but significantly worsened over the past week. Patient has a history of [id number] urinary tract infections. Current presentation is accompanied by worsening dysuria. Laboratory evaluation reveals acute kidney injury with elevated BUN of 49 and creatinine of 1.65, though lactate remains normal at 1.0. Urinalysis is positive for signs of urinary tract infection. Review of Systems: Genitourinary: Positive for dysuria, lower abdominal pain Constitutional: Not specifically mentioned All other systems: Deferred/negative Lab Results: BUN: 49 Creatinine: 1.65 Lactate: 1.0 Urinalysis: Positive for UTI Imaging and Other Relevant Results: No imaging studies documented Medical Decision Making: Summary Statement: 78-year-old female with history of recurrent UTIs presenting with worsening lower abdominal pain, dysuria, and acute kidney injury. Problem List: 1. Urinary Tract Infection/Pyelonephritis 2. Acute Kidney Injury 3. Chronic recurrent UTIs Differential Diagnosis: 1. Pyelonephritis 2. Cystitis 3. Urosepsis 4. Pre-renal acute kidney injury 5. Intrinsic renal disease ED Course: Patient evaluated for UTI with evidence of kidney injury. Shared decision-making discussion held with patient regarding admission. IV fluids and Rocephin initiated. Decision made to admit for continued monitoring and treat ment. Assessment and Plan: 1. Urinary Tract Infection/Pyelonephritis: - Admit to hospital for IV antibiotics (Rocephin initiated) - IV fluid hydration - Monitor response to treatment 2. Acute Kidney Injury: - Likely due to infection and possible dehydration - IV fluid resuscitation - Serial creatinine monitoring - Medication dose adjustments as needed Billing Information: ICD-10: N10 - Acute pyelonephritis ICD-10: N17.9 - Acute kidney failure, unspecified ICD-10: R10.9 - Unspecified abdominal pain Critical Care Note Critical Care Time?: Yes (35 min-critical care time only) Critical care comment: Total critical care time: Approximately 36 minutes Due to a high probability of clinically significant, life threatening deterioration, the patient required my highest level of preparedness to intervene emergently and I personally spent this critical care time directly and personally managing the patient. This critical care time included obtaining a history; examining the patient; pulse oximetry; ordering and review of studies; arranging urgent treatment with development of a management plan; evaluation of patient's response to treatment; frequent reassessment; and, discussions with other providers. This critical care time was performed to assess and manage the high probability of imminent, life-threatening deterioration that could result in multi-organ failure. It was exclusive of separately billable procedures and treating other patients. Stability Stability form required: No Heart Score Heart Score: Heart Score Response (Comments) Value History N/A 0 EKG N/A 0 Age N/A 0 Risk Factors N/A 0 Troponin N/A 0 Total 0 I personally scribed for DESTINEE KYLE MD ([email or web address]) on 07/20/24 at 21:35. Electronically submitted by Abdoul Sanders ([email or web address]). I personally scribed for DESTINEE KYLE MD ([email or web address]) on 07/20/24 at 21:42. Electronically submitted by Abdoul Sanders ([email or web address]). DESTINEE KYLE MD Jul 20, 2024 21:35
[2024-07-20] MEDS ORDERED: ACETAMINOPHEN 325 MG TAB PO PRN (22:45)
--- NOTE | 2024-07-20 23:31 | DVHHP2 ---
History of Present Illness Reason for Visit: Abdominal pain History of Present Illness 78-year-old female presents for evaluation of abdominal pain. Patient reports a three day history of worsening lower abdominal pain with associated dysuria. She also reports occasional nausea. States having intermittent chills. No cardiac or respiratory complaints reported. Past Medical History Anemia, CAD, asthma, CHF, COPD, depression, current, gout, dyslipidemia, hypertension, mi Past Surgical History CABG, hysterectomy, pacemaker, PTCA, tonsillectomy, appendectomy Family History Noncontributory Smoke: No ALCOHOL: none Lives: with Family Review of Systems Review of Systems Review of systems are currently negative otherwise addressed in HPI. 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[employer]LENE MEJIA Codeine (Verified Allergy, Unknown, 09/01/20) Hydrocodone (Verified Allergy, Unknown, rash, 05/18/23) tylenol is okay per patient Medications Current Medications Medications Dose Ordered Sig/Asha Route Start Time Stop Time Status Last Admin Dose Admin Aspirin 81 mg DAILY PO 07/21/24 10:00 Atorvastatin Calcium 40 mg HS PO 07/21/24 22:00 Levofloxacin 50 ml @ 50 mls/hr Q24H IV 07/21/24 23:00 UNV Carvedilol 3.125 mg Q12HR PO 07/21/24 10:00 Clopidogrel Bisulfate 75 mg DAILY PO 07/21/24 10:00 Duloxetine HCl 30 mg DAILY PO 07/21/24 10:00 Furosemide 40 mg DAILY PO 07/21/24 10:00 Pantoprazole Sodium 40 mg DAILY@0600 PO 07/21/24 06:00 Ranolazine 500 mg BID PO 07/21/24 10:00 Sacubitril/ Valsartan 1 tab BID PO 07/21/24 10:00 Ondansetron HCl 4 mg Q4HP PRN IV 07/20/24 22:45 Enoxaparin Sodium 30 mg DAILY SC 07/21/24 10:00 Acetaminophen 650 mg Q6HP PRN PO 07/20/24 22:45 Exam Vital Signs Vital Signs Date Time Temp Pulse Resp B/P (MAP) Pulse Ox O2 Delivery O2 Flow Rate FiO2 07/20/24 19:43 95.7 69 16 104/60 (75) 98 95.7 Exam Gen: 78-year-old female in no apparent distress Skin: Warm, dry, normal color and texture, no rash. HEENT: Normocephalic atraumatic, mucous membranes moist and pink. Neck: Cervical and supraclavicular nodes normal without enlargement, trachea is midline, thyroid gland is normal without masses. Pulmonary: Clear to auscultation and percussion bilaterally. Cardiac: Regular rate and rhythm. No murmur Abdomen: Soft, nontender, nondistended, bowel sounds present all 4 quadrants, no guarding, no rigidity, no organomegaly. Extremities: No cyanosis, clubbing, no edema Neuro: Cranial nerves II through XII grossly intact, normal affect and speech, no focal motor deficits. Labs/Xrays ORDERING PHYSICIAN: DESTINEE KYLE MD PROCEDURE(s): ABPL - CT AB PEL WO CON-NO ORAL OR IV REASON: ABDOMINAL PAIN ORDER NUMBER(s): [id number], ACCESSION NUMBER(s): [id number] Exam: CT CT AB PEL WO CON-NO ORAL OR IV History: ABDOMINAL PAIN Comparison Study: CT CT AB PEL WO CON-NO ORAL OR IV on DOS: 04/29/24, CT CT AB PEL WO CON-NO ORAL OR IV on DOS: 03/20/24, CT CT AB PEL WO CON-NO ORAL OR IV on DOS: 03/02/24, CT CT AB PEL WO CON-NO ORAL OR IV on DOS: 02/15/24, CT CT AB PEL WO CON-NO ORAL OR IV on DOS: 10/30/23 Technique: Multidetector spiral CT of the abdomen was performed from lung bases to pubic symphysis. Imaging was performed without IV contrast. Axial, coronal and sagittal multiplanar reformats were obtained from the axial data set by the technologist. Radiation Dose : 1. Abdomen/Pelvis: CTDIvol 18.96 mGy, DLP 959.59 mGy*cm. Findings: Evaluation of solid organs is limited due to lack of intravenous contrast use. Lung Bases: No acute or significant lung base finding. Normal heart size. No pleural or pericardial effusion. Liver: The liver is normal in size. No focal lesions. Gallbladder and Biliary Tree: Unremarkable Spleen: Unremarkable Pancreas: The pancreas is grossly normal in appearance. Adrenal Glands: Unremarkable Kidneys: Kidneys are grossly normal without calculi or hydronephrosis. Bladder: Grossly unremarkable for degree of distention. Bowel: The stomach is grossly normal in appearance. Small bowel and colon are normal in caliber and distribution. The appendix is not visualized; however, no secondary findings of acute appendicitis identified. Sigmoid diverticulosis without evidence of diverticulitis. Ascites: Absent Lymphadenopathy: No mesenteric, retroperitoneal or periportal lymphadenopathy. Abdominal Wall and Mesentery: Unremarkable. Vasculature: The visualized abdominal aorta is normal in size and caliber. Evaluation of abdominal and pelvic vessels is limited due to lack of intravenous contrast. Diffuse atherosclerotic calcifications are seen throughout the aorta. Pelvic Organs: Unremarkable Musculoskeletal: No aggressive focal bony lesions, acute fractures or dislocation. Moderate to severe degenerative changes throughout the thoracic and lumbar spine. IMPRESSION: 1. No acute abdominal or pelvic findings. Radiation optimization: All CT scans at this facility use at least one of these dose optimization techniques: automated exposure control mA and/or kV adjustment per patient size (includes targeted exams where dose is matched to clinical indication) or iterative reconstruction. Labs Test 07/20/24 20:24 07/20/24 20:11 Range/Units Urine Color Yellow Yellow Urine Clarity Clear Clear Urine pH 5.0 5.0-9.0 Urine Specific [place] 1.022 1.001-1.035 Urine Protein Negative Negative Urine Ketones Negative Negative Urine Blood Negative Negative /uL Urine Nitrite Negative Negative Urine Bilirubin Negative Negative Urine Urobilinogen Normal Negative mg/dL Urine Leukocyte Esterase 1+ Negative /uL Urine RBC 1 0 - 4 /hpf Urine Microscopic WBC 1 0-5 /HPF Urine Squamous Epithelial Cells Few <5 /hpf Urine Bacteria Few H None Seen /hpf Urine Hyaline Casts Mod 0 - 2 /lpf Urine Granular Casts Few 0 /lpf Urine Mucus Few None Seen Urine Glucose Normal Normal mg/dL White Blood Count 8.7 4.4-10.8 10^3/uL Red Blood Count 4.81 4.0-5.20 10^6/uL Hemoglobin 13.9 12.2-16.2 g/dL Hematocrit 42.8 36.0-46.0 % Mean Corpuscular Volume 89.0 80.0-100.0 fL Mean Corpuscular Hemoglobin 28.8 28.0-32.0 pg Mean Corpuscular Hemoglobin Concent 32.3 32.0-36.0 g/dL Red Cell Distribution Width 14.0 11.8-14.3 % Platelet Count 292 140-450 10^3/uL Mean Platelet Volume 8.4 6.9-10.8 fL Neutrophils (%) (Auto) 56.3 37.0-80.0 % Lymphocytes (%) (Auto) 27.9 10.0-50.0 % Monocytes (%) (Auto) 11.6 0.0-12.0 % Eosinophils (%) (Auto) 3.2 0.0-7.0 % Basophils (%) (Auto) 1.0 0.0-2.0 % Neutrophils # (Auto) 4.9 1.6-8.6 10 ^3/uL Lymphocytes # (Auto) 2.4 0.4-5.4 10 ^3/uL Monocytes # (Auto) 1.0 0-1.3 10 ^3/uL Eosinophils # (Auto) 0.3 0-0.8 10 ^3/uL Basophils # (Auto) 0.1 0-0.2 10 ^3/uL Nucleated Red Blood Cells 0.1 % Sodium Level 142 136-145 mmol/L Potassium Level 4.9 3.5-5.1 mmol/L Chloride Level 104 98-107 mmol/L Carbon Dioxide Level 29 20-31 mmol/L Anion Gap 9 5-15 Blood Urea Nitrogen 49 H 9-23 mg/dL Creatinine 1.65 H 0.550-1.02 mg/dL Glomerular Filtration Rate Calc 31 >90 mL/min BUN/Creatinine Ratio 29.7 H 10.0-20.0 Serum Glucose 97 74-106 mg/dL Lactic Acid Level 1.0 0.4-2.0 mmol/L Calcium Level 10.3 8.7-10.4 mg/dL Total Bilirubin 0.3 0.2-1.0 mg/dL Aspartate Amino Transferase (AST) 17 13-40 U/L Alanine Aminotransferase (ALT) 22 7-40 U/L Alkaline Phosphatase 80 46-116 U/L Total Protein 6.7 5.7-8.2 g/dL Albumin 4.8 3.2-4.8 g/dL Assessment/Plan Assessment/Plan Assessment Complicated UTI Acute kidney injury,? ATN Chronic pain syndrome Hypertension COPD Plan Admit the patient to [facility] to the hospitalist Ervin Urine bacterial culture pending Resume home medications Continue treatment per orders. Plan discussed with: Patient My Orders Orders - TODD LOPEZ Procedure Category Date Status Time Urine Bacterial MELVIN 07/20/24 In Process Culture 22:32 Aspirin Tablet PHA 07/21/24 In Process 10:00 Atorvastatin (Lipitor) PHA 07/21/24 In Process 22:00 Levofloxacin 250mg PHA 07/21/24 Pending (Levaquin 250mg) 23:00 Levofloxacin 500mg PHA 07/20/24 In Process (Levaquin 500mg/ 100m 22:45 Carvedilol Tablet PHA 07/21/24 In Process (Coreg Tablet) 10:00 Clopidogrel Bisulfate PHA 07/21/24 In Process (Plavix) 10:00 Duloxetine Hcl PHA 07/21/24 In Process Capsule (Cymbalta 10:00 Furosemide Tablet PHA 07/21/24 In Process (Lasix Tablet) 10:00 Pantoprazole Tablet PHA 07/21/24 In Process (Protonix Tablet) 06:00 Ranolazine (Ranexa Er) PHA 07/21/24 In Process 10:00 Sacubitril-Valsartan PHA 07/21/24 In Process (Entresto 24-26 Mg 10:00 Basic Metabolic Panel LAB 07/21/24 Verified 04:00 Admit ADMIT 07/20/24 Transmitted 22:32 Ondansetron Hcl PHA 07/20/24 In Process (Zofran) 22:45 Complete Blood Count LAB 07/21/24 Verified 04:00 Cardiac DIET 07/21/24 Transmitted Diet-2gna,Lofat,Lochol Breakfast Condition: Stable AME 07/20/24 In Process 22:32 Enoxaparin Sodium PHA 07/21/24 In Process (Lovenox) 10:00 Acetaminophen Tablet PHA 07/20/24 In Process (Tylenol Tablet) 22:45 Bedrest With Bathroom AME 07/20/24 In Process Privileg 22:32 Date of Service: Jul 20, 2024 Billing Provider: TODD LOPEZ Common Visit Codes: [id number] INP/OBS CARE (MOD) TODD LOPEZ Jul 20, 2024 23:31
[2024-07-21 03:05] VITALS: PULSE 97; RESP 17; O2SAT 97
[2024-07-21 04:14] LABS: Basophils # (auto) 0.1 10 ^3/uL (0-0.2); Basophils % (auto) 1.2 % (0.0-2.0); Eosinophils # (auto) 0.3 10 ^3/uL (0-0.8); Eosinophils % (auto) 2.8 % (0.0-7.0); Hematocrit 45.8 % (36.0-46.0); Lymphocytes # (auto) 3.1 10 ^3/uL (0.4-5.4); Lymphocytes % (auto) 32.3 % (10.0-50.0); Mean Corpuscular Hemoglobin 29.4 pg (28.0-32.0); Mean Corpuscular Hgb Conc. 32.9 g/dL (32.0-36.0); Mean Corpuscular Volume 89.5 fL (80.0-100.0); Monocytes # (auto) 1.1 10 ^3/uL (0-1.3); Monocytes % (auto) 11.7 % (0.0-12.0); Platelet Count (auto) 221 10^3/uL (140-450); Red Blood Cells 5.12 10^6/uL (4.0-5.20); Red Cell Distribution Width 14.2 % (11.8-14.3); White Blood Cell 9.6 10^3/uL (4.4-10.8)
[2024-07-21] MEDS: SODIUM CHLORIDE 0.9% 1,000 ML IVB ONE (04:14)
[2024-07-21] MEDS: cefTRIAXone 2GM/50ML D5W 50 ML IV ONE (04:15)
[2024-07-21] MEDS: levoFLOXacin 500MG 100 ML IV ONE (04:23)
[2024-07-21 04:30] LABS: Chloride 104 mmol/L (98-107); Potassium 4.2 mmol/L (3.5-5.1); Sodium 141 mmol/L (136-145)
[2024-07-21 04:31] LABS: Anion Gap 8 (5-15); Calcium 10.4 mg/dL (8.7-10.4); Carbon Dioxide 29 mmol/L (20-31)
[2024-07-21 04:43] LABS: BUN/Creatinine Ratio 28.4 (10.0-20.0)
[2024-07-21 04:52] LABS: Blood Urea Nitrogen 44 mg/dL (9-23); Glucose 107 mg/dL (74-106)
[2024-07-21] MEDS: PANTOPRAZOLE 40 MG TAB PO SCH (06:08)
[2024-07-21] MEDS ORDERED: OXYCODONE W/ ACETAMINOPHEN 5/325MG TABLET PO SCH ×2 (06:45→10:00)
[2024-07-21] MEDS: OXYCODONE W/ ACETAMINOPHEN 5/325MG TABLET PO SCH (08:30)
[2024-07-21] MEDS ORDERED: ACETAMINOPHEN 325 MG TAB PO PRN (08:30)
[2024-07-21] MEDS: MORPHINE SULFATE INJ 2 MG/ml SYRG IV PRN (08:49)
[2024-07-21 09:00] VITALS: BP 116/64; PULSE 68; RESP 16; TEMP 97.4; O2SAT 100
[2024-07-21] MEDS: ENOXAPARIN SOD 30 MG/0.3 ML SYRINGE SC SCH (10:00)
[2024-07-21] MEDS: CARVEDILOL 3.125 MG TAB PO SCH (10:02)
[2024-07-21] MEDS: RANOLAZINE ER 500 MG TAB PO SCH (10:02)
[2024-07-21] MEDS: DULoxetine HCL 30 MG CAP PO SCH ×2 (10:03→22:00)
[2024-07-21] MEDS: ASPirin 81 mg TAB PO SCH (10:03)
[2024-07-21] MEDS: SACUBITRIL-VALSARTAN 24mg/26mg TAB PO SCH (10:03)
[2024-07-21] MEDS: FUROSEMIDE 40 MG TAB PO SCH (10:03)
[2024-07-21] MEDS: CLOPIDOGREL BISULFATE 75 MG TAB PO SCH (10:03)
[2024-07-21] MEDS ORDERED: OXYCODONE W/ ACETAMINOPHEN 5/325MG TABLET PO PRN (10:15)
[2024-07-21] MEDS: MORPHINE SULF 15mg ER tab PO ONE (10:15)
[2024-07-21 10:28] VITALS: BP 116/67; PULSE 68; RESP 16; TEMP 97.4; O2SAT 100
[2024-07-21 13:00] VITALS: BP 111/62; PULSE 69; RESP 15; TEMP 97.4; O2SAT 99
[2024-07-21] MEDS: MEROPENEM 1GM IVPB 50 ML IV SCH (13:28)
[2024-07-21] MEDS: ACETAMINOPHEN 325 MG TAB PO SCH (14:00)
--- NOTE | 2024-07-21 14:46 | DVHPNRES ---
Progress Note Date Seen: Jul 21, 2024 Resident Creating Document: BHARAT MICHELLE RESIDENT Medical Necessity Reason Pt with a Central, PICC or Fol: No Subjective Review of Systems Niya Scott is a 78 year old female patient who presents to ED with chief complaint of lower abdominal pain, dysuria, pollakiuria, fever and chills which started two days before her admission. Denies dyspnea, chest pain, nausea, vomiting, diarrhea, bleeding, palpitations, syncope and motor or sensitive deficits. Past medical history: Hypertension, dyslipidemia, CAD with status post CABG and PCI, ischemic cardiomyopathy with HFrEF (LVEF 20%) status post CHOCOLATE TEMPERER-D, last echocardiogram 08/2023 LVEF 20%, LV dilated with diffuse hypokinesia, moderate MR regurgitation. COPD with requirement of home oxygen with nasal cannula at 2-3 L/min with multiple admissions due to COPD exacerbation, GERD. Non-obstructing kidney stones, treated with morphine, which has been discontinued in assisted living facility, opioid seeking behavior. Surgical history: Hysterectomy, placement of CHOCOLATE TEMPERER-D, CABG, PCI, tonsillectomy, appendicectomy Family history: Non-contributory Social history: Lives in assisted living center ([facility] Ex-smoker (50 pack year history). Denies current tobacco, alcohol and other drug abuse. Allergies: Ceftriaxone, Codeine, hydrocodone Home medication: Albuterol as needed, amitriptyline 10 mg p.o. daily, vitamin C 500 mg p.o. twice daily, aspirin 81 mg p.o. daily, atorvastatin 20 mg p.o. daily, bisacodyl 10 mg p.o. as needed, carisoprodol 1 tablet as needed, carvedilol 3.125 mg p.o. twice daily, vitamin D 3 2000 units p.o. twice daily, clonazepam as needed, clopidogrel 75 mg p.o. daily, fluoxetine 20 mg p.o. daily, fluticasone-salmeterol 1 puff inhaled twice daily, furosemide 40 mg p.o. daily, ipratropium albuterol as needed, lactobacillus 175 mg p.o. twice daily, magnesium 400 mg p.o. daily, morphine p.o. (was discontinued around a month ago), multivitamin 1 tablet p.o. daily, ranolazine 500 mg p.o. twice daily, Entresto 1 tablet p.o. twice daily, pantoprazole 40 mg p.o. daily Patient seen and examined at bedside. Continues with lower abdominal pain. We will continue with IV antibiotics, pending urine culture Objective vital signs Vital Sign Date Time Temp Pulse Resp B/P (MAP) Pulse Ox O2 Delivery O2 Flow Rate FiO2 07/21/24 13:07 69 15 111/62 07/21/24 10:28 97.4 100 97.4 07/21/24 03:05 Nasal Cannula* 2 28 Total Intake and Output 07/20/24 07/20/24 07/21/24 15:00 23:00 07:00 Intake Total 1100 ml Balance 1100 ml medications Current Medications Medications Dose Ordered Sig/Asha Route Start Time Stop Time Status Last Admin Dose Admin Aspirin 81 mg DAILY PO 07/21/24 10:00 07/21/24 10:03 81 MG Atorvastatin Calcium 40 mg HS PO 07/21/24 22:00 Carvedilol 3.125 mg Q12HR PO 07/21/24 10:00 07/21/24 10:02 3.125 MG Clopidogrel Bisulfate 75 mg DAILY PO 07/21/24 10:00 07/21/24 10:03 75 MG Furosemide 40 mg DAILY PO 07/21/24 10:00 07/21/24 10:03 40 MG Pantoprazole Sodium 40 mg DAILY@0600 PO 07/21/24 06:00 07/21/24 06:08 40 MG Ranolazine 500 mg BID PO 07/21/24 10:00 07/21/24 10:02 500 MG Sacubitril/ Valsartan 1 tab BID PO 07/21/24 10:00 07/21/24 10:03 1 TAB Ondansetron HCl 4 mg Q4HP PRN IV 07/20/24 22:45 Enoxaparin Sodium 30 mg DAILY SC 07/21/24 10:00 Morphine Sulfate 2 mg Q4HPRN PRN IV 07/21/24 06:45 07/21/24 13:07 2 MG Acetaminophen 650 mg TID PO 07/21/24 14:00 Oxycodone/ Acetaminophen 1 tab BID PRN PO 07/21/24 10:15 Hold Duloxetine HCl 30 mg BID PO 07/21/24 22:00 Morphine Sulfate 15 mg Q12HR PO 07/21/24 22:00 Meropenem 50 ml @ 17 mls/hr Q12H IV 07/21/24 14:00 07/21/24 13:28 17 MLS/HR Clonazepam 0.5 mg BID PO 07/21/24 22:00 Examination Patient lying in bed, in no acute distress General: Lucid, afebrile, mucosae are moist Cardiovascular: Normal S1 and S2. No murmurs, gallops or rubs Respiratory: Normal ventilation mechanics. Scarce velco rales predominantly on right base, rest of lung auscultation decreased. With nasal cannula at 2 L/min Abdomen: Soft, nontender, no organomegaly, normal bowel sounds MSK/skin: Mobilizes 4 limbs. Skin is dry and warm Neurological: Oriented in 3 spheres. No motor no sensitive deficits. Pupils are isocoric and reactive laboratory and microbiology Laboratory Tests 07/21/24 04:08 07/21/24 03:46 Test 07/21/24 04:08 Range/Units Serum Glucose 107 H 74-106 mg/dL Problem List/Assessment/Plan Problem List/Assessment/Plan # UTI UA with few bacteria. Patient has history of E coli ESBL. Currently on empiric IV antibiotic (meropenem) Completed abdomen and pelvis CT which showed no acute pathological findings # LENORA hemodynamically mediated on CKD We will monitor # Chronic Respiratory failure secondary to COPD and HFrEF - on home oxygen at 2 liters/minute Continue with home oxygen 2 liters/minute through nasal cannula # COPD no exacerbation Continue with home bronchodilator treatment # Chronic systolic congestive heart failure (HFrEF, LVEF 20%) - Status post CABG, PCI and CHOCOLATE TEMPERER-D Continue with home medication. Due to history of multiple severe UTIs, can not indicated empagliflozin. Spironolactone will be added. Continue with Entresto and carvedilol # History of coronary artery disease - status post CABG and PCI Patient continues with aspirin and clopidogrel # History of nonobstructive kidney stones symptomatic by chronic back pain Optimize pain medication # Opioid seeking behavior Optimize medical therapy # History of GERD Continue with pantoprazole Goals of care discussed with patient for over 18 minutes: Full code status Discussed plan with Dr. Gomez, patient and nurses: We will continue with IV antibiotic treatment at this point. Pending urine culture (does have history of UTI secondary to E coli ESBL. Plan discussed with: Patient, Other (Nurses) My Orders My Orders Orders - BHARAT MICHELLE RESIDENT Procedure Category Date Status Time Acetaminophen Tablet PHA 07/21/24 In Process (Tylenol Tablet) 14:00 Oxycodone W/ Acet PHA 07/21/24 In Process 5/325mg Tab (Percocet 10:15 Duloxetine Hcl PHA 07/21/24 In Process Capsule (Cymbalta 22:00 Morphine Extended PHA 07/21/24 In Process Release Tab (Oramorph 22:00 Meropenem 1gm Ivpb PHA 07/21/24 In Process (Merrem 1gm/ Ns) 14:00 Date of Service: Jul 21, 2024 Billing Provider: WINSOME GOMEZ MD Common Visit Codes: [id number] INP/OBS CARE(HIGH) BHARAT MICHELLE RESIDENT Jul 21, 2024 14:46 WINSOME GOMEZ MD Jul 27, 2024 11:34
[2024-07-21 17:00] VITALS: BP 101/58; PULSE 64; RESP 18; TEMP 98.1; O2SAT 98
[2024-07-21] MEDS: ONDANSETRON HCL 4 MG/2 ML VIAL IV PRN (17:16)
[2024-07-21 18:05] LABS: Urine Bacteria None Seen /hpf (None Seen)
[2024-07-21 18:49] LABS: Urine Blood Negative /uL (Negative); Urine Clarity Clear (Clear); Urine Color Colorless (Yellow); Urine Hyaline Cast FEW /lpf (0 - 2); Urine Protein, UAD Negative (Negative); Urine Specific Gravity 1.009 (1.001-1.035); Urine Squamous Epithelial Cell FEW /hpf (<5); Urine Urobilinogen Normal (Negative); Urine WBC 4 /HPF (0-5)
[2024-07-21 20:00] VITALS: BP 108/58; PULSE 67; RESP 18; TEMP 98.2; O2SAT 94
[2024-07-21] MEDS: ATORVASTATIN 20 MG TAB PO SCH (22:00)
[2024-07-21] MEDS: MORPHINE SULF 15mg ER tab PO SCH (22:00)
[2024-07-21] MEDS: clonazePAM 0.5 MG TAB PO SCH (22:01)
[2024-07-21] MEDS ORDERED: levoFLOXacin 250MG 50 ML IV SCH (23:00)
[2024-07-22] VITALS (7 sets, daily range): BP systolic 101–121; BP diastolic 55–66; PULSE 63–74; RESP 16–18; TEMP 97.5–98.1; O2SAT 92–100
[2024-07-22 07:45] LABS: Hematocrit 40.5 % (36.0-46.0); Hemoglobin 13.1 g/dL (12.2-16.2); Mean Corpuscular Hgb Conc. 32.3 g/dL (32.0-36.0); Mean Corpuscular Volume 89.7 fL (80.0-100.0); Platelet Count (auto) 235 10^3/uL (140-450); Red Blood Cells 4.52 10^6/uL (4.0-5.20); Red Cell Distribution Width 13.9 % (11.8-14.3)
[2024-07-22 07:51] LABS: Anion Gap 10 (5-15); Carbon Dioxide 27 mmol/L (20-31); Chloride 106 mmol/L (98-107); Potassium 4.2 mmol/L (3.5-5.1); Sodium 143 mmol/L (136-145)
[2024-07-22 07:52] LABS: Calcium 9.7 mg/dL (8.7-10.4)
[2024-07-22 07:57] LABS: Glucose 94 mg/dL (74-106)
[2024-07-22 07:58] LABS: BUN/Creatinine Ratio 25.4 (10.0-20.0); Magnesium 2.3 mg/dL (1.6-2.6)
[2024-07-22 07:59] LABS: Phosphorus 3.4 mg/dL (2.4-5.1)
[2024-07-22 08:00] LABS: Blood Urea Nitrogen 32 mg/dL (9-23)
[2024-07-22 08:04] LABS: Band Neutrophils % (manual) 0; Basophils % (manual) 0 (0.0-2.0); Blast Cells 0; Metamyelocytes % 0; Myelocytes % 0; Promyelocytes % 0; Reactive Lymphocytes 0
[2024-07-22 08:58] LABS: Eosinophils % (manual) 7 (0-7); Lymphocytes % (manual) 25 (10.0-50.0)
[2024-07-22 08:59] LABS: Opiate Scree,Urine Neg (NEGATIVE); Phencyclidine Screen, Urine Neg (NEGATIVE)
[2024-07-22 08:59] LABS: Monocytes % (manual) 20 (0-12); Platelet Estimate Adequate
[2024-07-22] MEDS ORDERED: MORPHINE SULFATE INJ 2 MG/ml SYRG IV PRN ×2 (09:15)
[2024-07-22 09:22] LABS: Amphetamine Screen, Urine Neg (NEGATIVE); Barbiturate Scree,Urine Neg (NEGATIVE); Benzodiazephine Screen, Urine Neg (NEGATIVE); Cannabinoid Screen, Urine Neg (NEGATIVE); Cocaine Screen, Urine Neg (NEGATIVE)
[2024-07-22] MEDS ORDERED: OXYB5TAB14 PO (09:26)
[2024-07-22] MEDS ORDERED: ACET-1882 PO (09:26)
[2024-07-22] MEDS ORDERED: ATOR20TA50 PO (09:26)
[2024-07-22] MEDS ORDERED: FOSF3POW PO (09:26)
[2024-07-22] MEDS ORDERED: SPIR25TA PO (09:26)
[2024-07-22] MEDS: BUDESONIDE (INHALATION) 0.5 MG/2 ML NEB NEB SCH (09:43)
[2024-07-22] MEDS: FUROSEMIDE 40 MG TAB PO SCH (10:43)
[2024-07-22] MEDS: OXYBUTYNIN CHL 5 MG TAB PO ONE (11:08)
[2024-07-22] MEDS: SPIRONOLACTONE 25 MG TAB PO SCH (11:09)
[2024-07-22] MEDS: LEVALBUTEROL HCL 1.25 MG/3 ML NEB NEB SCH (11:29)
[2024-07-22] MEDS: IPRATROPIUM BROM 0.5 MG/2.5ML INH SOL NEB SCH (11:29)
[2024-07-22] MEDS: OXYCODONE W/ ACETAMINOPHEN 5/325MG TABLET PO PRN (14:12)
--- NOTE | 2024-07-22 14:48 | DVHDSRES ---
Discharge Summary Date of Admission Resident Creating Document: BHARAT MICHELLE RESIDENT Jul 20, 2024 at 22:32 Date of Discharge: Jul 22, 2024 Labs/Diagnostic Data: Laboratory Results Test 07/22/24 07:05 07/21/24 20:24 07/21/24 18:04 07/21/24 03:46 White Blood Count 8.0 10^3/uL (4.4-10.8) Red Blood Count 4.52 10^6/uL (4.0-5.20) Hemoglobin 13.1 g/dL (12.2-16.2) Hematocrit 40.5 % (36.0-46.0) Mean Corpuscular Volume 89.7 fL (80.0-100.0) Mean Corpuscular Hemoglobin 29.0 pg (28.0-32.0) Mean Corpuscular Hemoglobin Concent 32.3 g/dL (32.0-36.0) Red Cell Distribution Width 13.9 % (11.8-14.3) Platelet Count 235 10^3/uL (140-450) Mean Platelet Volume 8.5 fL (6.9-10.8) Neutrophils (%) (Auto) % (37.0-80.0) Lymphocytes (%) (Auto) % (10.0-50.0) Monocytes (%) (Auto) % (0.0-12.0) Basophils (%) (Auto) % (0.0-2.0) Neutrophils # (Auto) 10 ^3/uL (1.6-8.6) Lymphocytes # (Auto) 10 ^3/uL (0.4-5.4) Monocytes # (Auto) 10 ^3/uL (0-1.3) Differential Total Cells Counted 100.0 (100) Neutrophils % (Manual) 48 (37.0-80.0) Band Neutrophils % (Manual) 0 Lymphocytes % (Manual) 25 (10.0-50.0) Monocytes % (Manual) 20 (0-12) Eosinophils % (Manual) 7 (0-7) Basophils % (Manual) 0 (0.0-2.0) Metamyelocytes % (manual) 0 Myelocytes % (Manual) 0 Promyelocytes % (Manual) 0 Blast Cells % (Manual) 0 Reactive Lymphocytes 0 Platelet Estimate Adequate Sodium Level 143 mmol/L (136-145) Potassium Level 4.2 mmol/L (3.5-5.1) Chloride Level 106 mmol/L (98-107) Carbon Dioxide Level 27 mmol/L (20-31) Anion Gap 10 (5-15) Blood Urea Nitrogen 32 mg/dL (9-23) Creatinine 1.26 mg/dL (0.550-1.02) Glomerular Filtration Rate Calc 43 mL/min (>90) BUN/Creatinine Ratio 25.4 (10.0-20.0) Serum Glucose 94 mg/dL (74-106) Calcium Level 9.7 mg/dL (8.7-10.4) Phosphorus Level 3.4 mg/dL (2.4-5.1) Magnesium Level 2.3 mg/dL (1.6-2.6) Urine Opiates Screen Neg (NEGATIVE) Urine Fentanyl Screen Neg (NEGATIVE) Urine Barbiturates Screen Neg (NEGATIVE) Urine Phencyclidine Screen Neg (NEGATIVE) Urine Amphetamines Screen Neg (NEGATIVE) Urine Benzodiazepines Screen Neg (NEGATIVE) Urine Cocaine Screen Neg (NEGATIVE) Urine Cannabinoids Screen Neg (NEGATIVE) Urine Color Colorless (Yellow) Urine Clarity Clear (Clear) Urine pH 5.0 (5.0-9.0) Urine Specific [place] 1.009 (1.001-1.035) Urine Protein Negative (Negative) Urine Ketones Negative (Negative) Urine Blood Negative /uL (Negative) Urine Nitrite Negative (Negative) Urine Bilirubin Negative (Negative) Urine Urobilinogen Normal mg/dL (Negative) Urine Leukocyte Esterase Trace /uL (Negative) Urine RBC 1 /hpf (0 - 4) Urine Microscopic WBC 4 /HPF (0-5) Urine Squamous Epithelial Cells Few /hpf (<5) Urine Bacteria None seen /hpf (None Seen) Urine Hyaline Casts Few /lpf (0 - 2) Urine Glucose Normal mg/dL (Normal) Eosinophils (%) (Auto) 2.8 % (0.0-7.0) Eosinophils # (Auto) 0.3 10 ^3/uL (0-0.8) Basophils # (Auto) 0.1 10 ^3/uL (0-0.2) Nucleated Red Blood Cells 1.0 % Test 07/20/24 20:24 07/20/24 20:11 Urine Granular Casts Few /lpf (0) Urine Mucus Few (None Seen) Lactic Acid Level 1.0 mmol/L (0.4-2.0) Total Bilirubin 0.3 mg/dL (0.2-1.0) Aspartate Amino Transferase (AST) 17 U/L (13-40) Alanine Aminotransferase (ALT) 22 U/L (7-40) Alkaline Phosphatase 80 U/L (46-116) Total Protein 6.7 g/dL (5.7-8.2) Albumin 4.8 g/dL (3.2-4.8) Other Laboratory Tests 07/22/24 07:05 Brief Hx & Hospital Course: Niya Scott is a 78 year old female patient who presents to ED with chief complaint of lower abdominal pain, dysuria, pollakiuria, fever and chills which started two days before her admission. Denies dyspnea, chest pain, nausea, vomiting, diarrhea, bleeding, palpitations, syncope and motor or sensitive deficits. Past medical history: Hypertension, dyslipidemia, CAD with status post CABG and PCI, ischemic cardiomyopathy with HFrEF (LVEF 20%) status post CLINICAL TRIAL ASSOCIATE-D, last echocardiogram 08/2023 LVEF 20%, LV dilated with diffuse hypokinesia, moderate MR regurgitation. COPD with requirement of home oxygen with nasal cannula at 2-3 L/min with multiple admissions due to COPD exacerbation, GERD. Non-obstructing kidney stones, treated with morphine, which has been discontinued in assisted living facility, opioid seeking behavior. Surgical history: Hysterectomy, placement of CLINICAL TRIAL ASSOCIATE-D, CABG, PCI, tonsillectomy, appendicectomy Family history: Non-contributory Social history: Lives in assisted living center ([facility] Ex-smoker (50 pack year history). Denies current tobacco, alcohol and other drug abuse. Allergies: Ceftriaxone, Codeine, hydrocodone Home medication: Albuterol as needed, amitriptyline 10 mg p.o. daily, vitamin C 500 mg p.o. twice daily, aspirin 81 mg p.o. daily, atorvastatin 20 mg p.o. daily, bisacodyl 10 mg p.o. as needed, carisoprodol 1 tablet as needed, carvedilol 3.125 mg p.o. twice daily, vitamin D 3 2000 units p.o. twice daily, clonazepam as needed, clopidogrel 75 mg p.o. daily, fluoxetine 20 mg p.o. daily, fluticasone-salmeterol 1 puff inhaled twice daily, furosemide 40 mg p.o. daily, ipratropium albuterol as needed, lactobacillus 175 mg p.o. twice daily, magnesium 400 mg p.o. daily, morphine p.o. (was discontinued around a month ago), multivitamin 1 tablet p.o. daily, ranolazine 500 mg p.o. twice daily, Entresto 1 tablet p.o. twice daily, pantoprazole 40 mg p.o. daily Brief hospital course: Complicated UTI associated with LENORA on CKD, responding to empiric IV antibiotics (meropenem, was discharged with fosfomycin) and IV fluids. Completed abdomen and pelvis CT which showed no acute findings. Urine culture was obtained, pending results negative at the moment. Optimize pain management. Continued with oxybutynin for urinary incontinence. Patient presents 300 eosinophils, has frequent readmissions due to COPD exacerbation, may benefit from Dupixent, we will refer to follow up as outpatient with pulmonology. Patient hemodynamically stable, asymptomatic, with requirement of normal home oxygen levels, in condition to be discharged home. 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 supervisor painting DIAGNOSIS # Complicated UTI # LENORA hemodynamically mediated on CKD # Chronic Respiratory failure secondary to COPD and HFrEF - on home oxygen at 2 liters/minute # COPD no exacerbation # Chronic systolic congestive heart failure (HFrEF, LVEF 20%) - Status post CABG, PCI and CLINICAL TRIAL ASSOCIATE-D # History of coronary artery disease - status post CABG and PCI # History of nonobstructive kidney stones symptomatic by chronic back pain # Opioid seeking behavior # History of GERD Examination Patient lying in bed, in no acute distress General: Lucid, afebrile, mucosae are moist Cardiovascular: Normal S1 and S2. No murmurs, gallops or rubs Respiratory: Normal ventilation mechanics. Scarce velco rales predominantly on right base, rest of lung auscultation decreased. With nasal cannula at 2 L/min Abdomen: Soft, nontender, no organomegaly, normal bowel sounds MSK/skin: Mobilizes 4 limbs. Skin is dry and warm Neurological: Oriented in 3 spheres. No motor no sensitive deficits. Pupils are isocoric and reactive Goals of care discussed with patient for over 18 minutes: Full code status Discussed plan with Dr. Shepard, patient and nurses. Operations or Procedures Exam: CT CT AB PEL WO CON-NO ORAL OR IV History: ABDOMINAL PAIN Comparison Study: CT CT AB PEL WO CON-NO ORAL OR IV on DOS: 04/29/24, CT CT AB PEL WO CON-NO ORAL OR IV on DOS: 03/20/24, CT CT AB PEL WO CON-NO ORAL OR IV on DOS: 03/02/24, CT CT AB PEL WO CON-NO ORAL OR IV on DOS: 02/15/24, CT CT AB PEL WO CON-NO ORAL OR IV on DOS: 10/30/23 Technique: Multidetector spiral CT of the abdomen was performed from lung bases to pubic symphysis. Imaging was performed without IV contrast. Axial, coronal and sagittal multiplanar reformats were obtained from the axial data set by the technologist. Radiation Dose : 1. Abdomen/Pelvis: CTDIvol 18.96 mGy, DLP 959.59 mGy*cm. Findings: Evaluation of solid organs is limited due to lack of intravenous contrast use. Lung Bases: No acute or significant lung base finding. Normal heart size. No pleural or pericardial effusion. Liver: The liver is normal in size. No focal lesions. Gallbladder and Biliary Tree: Unremarkable Spleen: Unremarkable Pancreas: The pancreas is grossly normal in appearance. Adrenal Glands: Unremarkable Kidneys: Kidneys are grossly normal without calculi or hydronephrosis. Bladder: Grossly unremarkable for degree of distention. Bowel: The stomach is grossly normal in appearance. Small bowel and colon are normal in caliber and distribution. The appendix is not visualized; however, no secondary findings of acute appendicitis identified. Sigmoid diverticulosis without evidence of diverticulitis. Ascites: Absent Lymphadenopathy: No mesenteric, retroperitoneal or periportal lymphadenopathy. Abdominal Wall and Mesentery: Unremarkable. Vasculature: The visualized abdominal aorta is normal in size and caliber. Evaluation of abdominal and pelvic vessels is limited due to lack of intravenous contrast. Diffuse atherosclerotic calcifications are seen throughout the aorta. Pelvic Organs: Unremarkable Musculoskeletal: No aggressive focal bony lesions, acute fractures or dislocation. Moderate to severe degenerative changes throughout the thoracic and lumbar spine. IMPRESSION: 1. No acute abdominal or pelvic findings. Radiation optimization: All CT scans at this facility use at least one of these dose optimization techniques: automated exposure control mA and/or kV adjustment per patient size (includes targeted exams where dose is matched to clinical indication) or iterative reconstruction. ATED BY: LUIS ELIZONDO MD DICTATED DATE/TIME: 07/20/242049 Condition at Discharge: Fair Final Diagnosis/Problems List # Complicated UTI # LENORA hemodynamically mediated on CKD # Chronic Respiratory failure secondary to COPD and HFrEF - on home oxygen at 2 liters/minute # COPD no exacerbation # Chronic systolic congestive heart failure (HFrEF, LVEF 20%) - Status post CABG, PCI and CLINICAL TRIAL ASSOCIATE-D # History of coronary artery disease - status post CABG and PCI # History of nonobstructive kidney stones symptomatic by chronic back pain # Opioid seeking behavior # History of GERD Discharge Disposition: Home SNF Discharge Will this Physician continue t: No Discharge Instruct/Medications Diet: Consistent carbohydrate, Cardiac 2g Na,low cholest, Renal Activity: No Restrictions, As Tolerated Follow Up/Referral: PCP Cardiology Pulmonology Medications: Fosfomycin 3 days Rest per EMR (GDMT for HFrEF except empagliflozin) Discharge Statement: "Patient was advised to return to the ER or call 911 if any headaches, dizziness, shortness of breath, chest pain, abdominal pain, bleeding, fevers, or worsening of medical condition. Patient was counseled about treatment plan, medications, possible side effects, patientverbalized understanding. All questions were answered to the best of my ability. This discharge took greater then 30 minutes in planning, reviewing documentation, counseling the patient, and discussing with other team members." ASSESSMENT ASSESSMENT Assessment Complicated UTI Date of Service: Jul 27, 2024 Billing Provider: WINSOME SHEPARD MD Common Visit Codes: 01822-PCN/OBS DISCH DAY >30min BHARAT MICHELLE RESIDENT Jul 22, 2024 14:48 WINSOME SHEPARD MD Jul 27, 2024 11:35
[2024-07-22] MEDS ORDERED: OXYBUTYNIN CHL 5 MG TAB PO SCH (17:00)
== END 2024-07-22 15:00 | disposition home or self-care (01) | DRG 689 ==
LOC: ER 18:43 → EDBD 18:43 → OVERFLOW 22:32
PROVIDERS: ADMIT Student in an Organized Health Care Education/Training Program; ATTEND Emergency Medicine
DX: N39.0 Urinary tract infection, site not specified (principal); N17.0 Acute kidney failure with tubular necrosis; I13.0 Hypertensive heart and chronic kidney disease with heart failure and stage 1 through stage 4 chronic kidney disease, or unspecified chronic kidney disease; J96.10 Chronic respiratory failure, unspecified whether with hypoxia or hypercapnia; I50.22 Chronic systolic (congestive) heart failure; I25.10 Atherosclerotic heart disease of native coronary artery without angina pectoris; D64.9 Anemia, unspecified; I25.5 Ischemic cardiomyopathy; E78.5 Hyperlipidemia, unspecified; I34.0 Nonrheumatic mitral (valve) insufficiency; F32.A Depression, unspecified; F41.9 Anxiety disorder, unspecified; M54.9 Dorsalgia, unspecified; N18.9 Chronic kidney disease, unspecified; K21.9 Gastro-esophageal reflux disease without esophagitis; G89.4 Chronic pain syndrome; M10.9 Gout, unspecified; J44.9 Chronic obstructive pulmonary disease, unspecified; Z88.1 Allergy status to other antibiotic agents; Z88.5 Allergy status to narcotic agent; Z88.8 Allergy status to other drugs, medicaments and biological substances; Z79.899 Other long term (current) drug therapy; Z79.891 Long term (current) use of opiate analgesic; Z79.82 Long term (current) use of aspirin; Z79.84 Long term (current) use of oral hypoglycemic drugs; Z90.710 Acquired absence of both cervix and uterus; Z95.1 Presence of aortocoronary bypass graft; Z90.49 Acquired absence of other specified parts of digestive tract; Z87.442 Personal history of urinary calculi; Z99.81 Dependence on supplemental oxygen; Z87.440 Personal history of urinary (tract) infections
CPT/HCPCS: 36415; 74176; 80048; 80053; 80307; 81001; 83605; 83735; 84100; 85007; 85025; 85027; 87040; 87081; 87086; 94640; G0378; J1956; J2185; J2405

== ENCOUNTER 2024-07-24 14:31 | Inpatient (IN) | payer OTHER, MEDICAID ==
[~2024-07-24] VITALS: Ht 162.6 cm; Wt 75.5 kg
[~2024-07-24 14:31] MED LIST changes: +ACET-1882 PO; -ATOR20TA PO; +ATOR20TA50 PO; +FOSF3POW PO; +OXYB5TAB14 PO; +SPIR25TA PO; -TAMS-35 PO
[2024-07-24 15:00] VITALS: PULSE 63; RESP 11; O2SAT 97
[2024-07-24] MEDS: MORPHINE SULFATE 4 MG/ML SYR/VIAL IV ONE ×2 (15:00→20:31)
--- NOTE | 2024-07-24 15:00 | ED.PDOC ---
History of Present Illness HPI Comments 79F BIBA w/ prior Hx of WI, HTN, CHF, COPD, CABG, Cardiac Stentx6 and a Pacemaker which all may be associated to the c/c of CP/SOB x1hr.Pt reports that her concentrator and immediately after, started to have the SOB w/ centered CP that radiates to the left arm. EMS report the pt being picked up at her c ardiologists office due from her meeting up w/ Doctor Yaw. When EMS arrived on scene they gave the pt, an aspirin which did not help the pt but instead gave the pt a PAGAN. Pt notes that she was recently here due from a UTI and that she currently has lower ABD pain which radiate to the back bilaterally. PMHx of Anemia, Anxiety, Asthma, CAD, Depression, GERD, Gout, High lipids, Kidney Stones, Uti's. SHx of Appendectomy, Hysterectomy, PTCA and 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. Denies chills, fever, N/V/D, or other associated symptom's, modifiers, or recent injuries or sick contact at this time. Chief Complaint: Shortness of Breath Time Seen by MD: 14:45 Primary Care Provider: HORTENCIA Reviewed Notes: Nurses Notes, Game Designer/Creative Director Notes, Medications, Allergies Allergies: Coded Allergies: Ceftriaxone (Verified Allergy, Intermediate, generalized rash, 11/08/22) LACROSSE COACH OMEGA MEJIA Hydrocodone (Verified Allergy, Unknown, rash, 05/18/23) tylenol is okay per patient Home Meds Active Scripts Fosfomycin Tromethamine (Fosfomycin Tromethamine) 3 Gm Pow, 3 GM PO DAILY for 3 Days, #3 POW Prov:BHARAT MICHELLE RESIDENT 07/22/24 Spironolactone (Aldactone) 25 Mg Tab, 25 MG PO DAILY for 30 Days, #30 TAB Prov:BHARAT MICHELLE RESIDENT 07/22/24 Oxybutynin Chloride (Oxybutynin Chloride) 5 Mg Tab, 5 MG PO Q8HR for 30 Days, #90 TAB Prov:BHARAT MICHELLE RESIDENT 07/22/24 Atorvastatin Calcium (ATORVASTATIN CALCIUM) 20 Mg Tab, 40 MG PO HS for 30 Days, #60 TAB Prov:BHARAT MICHELLE RESIDENT 07/22/24 Acetaminophen (Acetaminophen) 325 Mg Tab, 650 MG PO TID for 10 Days, #60 TAB Prov:BHAART MICHELLE RESIDENT 07/22/24 Duloxetine Hydrochloride (Duloxetine Hydrochloride) 30 Mg Cap, 30 MG PO DAILY for 30 Days, #30 CAP Prov:WINSOME GOMEZ MD 04/29/24 Phenazopyridine HCl (Phenazopyridine Hydrochlo) 200 Mg Tab, 200 MG PO TID for 3 Days, #9 TAB Prov:ARISTID[facility]RIANIRALI [facility] 04/10/24 Primidone (MYSOLINE TABLET) 50 Mg Tb, 25 MG PO HS for 30 Days, #15 TAB Prov[facility] 04/10/24 Clopidogrel Bisulfate (CLOPIDOGREL) 75 Mg Tab, 75 MG PO DAILY for 30 Days, #30 TAB 5 Refills Prov:YENNY FRAIRE MD 11/26/23 Ranolazine (Ranolazine ER) 500 Mg Tab, 500 MG PO BID for 30 Days, #60 TAB 2 Refills Prov:MAGAN RUSS RESIDENT 09/16/23 Sacubitril-Valsartan (Entresto 24-26 mg) 1 Tab Tab, 1 TAB PO BID for 30 Days, #60 TAB 3 Refills Prov:LEANNA BROWN DO 05/22/23 Reported Medications Oxycodone W/ Acetaminophen (Percocet 5/325MG) 1 Tab Tb, 1 TAB PO QID, #120 TAB 01/29/24 Polyethylene Glycol 3350 (Miralax) 17 Gm Pow, 17 GM PO DAILY PRN for FOR CONSTIPATION for 30 Days, #30 01/28/24 Lactobacillus (ACIDOPHILUS) Cap, 1 CAP PO BID for 30 Days, #60 09/05/23 Ipratropium-Albuterol (Ipratropium [place]/Albut) 1 Yuli Yuli, 1 VIAL NEB Q6HPRN PRN for SHORTNESS OF BREATH for 13 Days, #180 09/05/23 Fluticasone-Salmeterol (Fluticasone Propionate/SA 250-50 Mcg/Dose) 1 Aer Aer, 1 PUFF INH BID for 30 Days, #60 09/05/23 Albuterol Sulfate (Albuterol Sulfate Hfa) 108 Mcg/Act Aer, 2 PUFF INH Q4HPRN PRN for dyspnea for 17 Days, #18 09/05/23 Cholecalciferol (VITAMIN D3) 2,000 Unit Tab, 1 TAB PO BID for 30 Days, #60 08/28/23 Multiple Vitamin (Tab-A-Radha) Tab, 1 TAB PO DAILY for 30 Days, #30 08/28/23 Aspirin (Aspir-Low) 81 Mg Tab, 1 TAB PO DAILY for 30 Days, #30 08/28/23 Furosemide (Furosemide) 40 Mg Tab, 1 TAB PO DAILY 08/28/23 Ascorbic Acid (VITAMIN C TABLET) 500 Mg Tb, 1 TAB PO BID for 30 Days, #60 05/18/23 Pantoprazole Sodium Sesquihydr (Pantoprazole Sodium) 40 Mg Tab, 1 TAB PO DAILY 05/18/23 Carvedilol (Carvedilol) 3.125 Mg Tab, 1 TAB PO BID for 30 Days, #60 01/02/23 Fluoxetine HCl (Pmdd) (Fluoxetine HCl) 20 Mg Tab, 20 MG PO DAILY, TAB 05/30/20 Discontinued Reported Medications Atorvastatin Calcium (Lipitor) 20 Mg Tab, 1 TAB PO HS for 30 Days, #30 12/30/20 Discontinued Scripts Tamsulosin Hcl (Flomax) 0.4 Mg Cap, 0.4 MG PO QPM for 30 Days, #30 CAP Prov:BHARAT MICHELLE RESIDENT 10/18/23 Information Source: Patient, Emergency Med Personnel Mode of Arrival: EMS Severity: Moderate Timing: Minutes Duration: Since onset, Minutes Prehospital treatment: Other (Aspirin) Past Medical History PAST MEDICAL HISTORY: Anemia, Anxiety, Asthma, CAD, CHF, COPD, Depression, GERD, Gout, High Lipids, HTN, Kidney Stones, WI, UTI'S Surgical History: Appendectomy, CABG, Hysterectomy, Pacemaker, PTCA, 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 Surgical History (Other): Cardiac Stent x6 MECHANICAL DETAILER 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: 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 Cysts Family History Family History: Reviewed,noncontributory to illness, Unknown Social History Smoker: Non-Smoker Alcohol: Denies ETOH Use Drugs: Denies Drug Use Lives In: Home Constitutional: denies: chills, diaphoresis, fatigue, fever, malaise, sweats, weakness, others EENTM: denies: blurred vision, double vision, ear bleeding, ear discharge, ear drainage, ear pain, ear ringing, eye pain, eye redness, hearing loss, mouth pain, mouth swelling, nasal discharge, nose bleeding, nose congestion, nose pain, photophobia, tearing, throat pain, throat swelling, voice changes, others Respiratory: reports: shortness of breath; denies: cough, hemoptysis, orthopnea, SOB at rest, SOB with excertion, stridor, wheezing, others Cardiovascular: reports: chest pain; denies: dizzy spells, diaphoresis, Dyspnea on exertion, edema, irregular heart beat, left arm pain, lightheadedness, palpitations, PND, syncope, others Gastrointestinal: reports: abdominal pain; denies: abdomen distended, blood streaked bowels, constipated, diarrhea, dysphagia, difficulty swallowing, he matemesis, melena, nausea, poor appetite, poor fluid intake, rectal bleeding, rectal pain, vomiting, others Genitourinary: reports: flank pain; denies: abnormal vagina bleeding, burning, dyspareunia, dysuria, frequency, hematuria, incontinence, pain, , vagina discharge, urgency, others Neurological: denies: dizziness, fainting, headache, left sided numbness, left sided weakness, numbness, paresthesia, pre-existing deficit, right sided numbness, right sided weakness, seizure, speech problems, tingling, tremors, weakness, others Musculoskeletal: reports: back pain; denies: gout, joint pain, joint swelling, muscle pain, muscle stiffness, neck pain, others Integumetry: denies: bruises, change in color, change in hair/nails, dryness, laceration, lesions, lumps, rash, wounds, others Allergic/Immunocompromised: denies: Difficulty Healing, Frequent Infections, Hives, Itching, others Hematologic/Lymphatic: denies: anemia, blood clots, easy bleeding, easy bruising, swollen glands, others Endocrine: denies: excessive hunger, excessive sweating, excessive thirst, excessive urination, flushing, intolerance to cold, intolerance to heat, unexplained weight gain, unexplained weight loss, others Psychiatric: denies: anxiety, bipolar disorder, depression, hopeless, panic disorder, schizophrenia, sleepless, suicidal, others All Other Systems: Reviewed and Negative Physical Exam General Appearance: Moderate Distress HEENT: Normal ENT Inspection, Pharynx Normal, TMs Normal Neck: Full Range of Motion, Non-Tender, Normal, Normal Inspection Respiratory: Chest Non-Tender, Lungs Clear, No Accessory Muscle Use, No Respiratory Distress, Normal Breath Sounds Cardiovascular: No Edema, No JVD, No Murmur, No Gallop, Other (Pacemaker on the chest) Breast Exam: Deferred Gastrointestinal: No Organomegaly, Non Tender, No Pulsatile Mass, Normal Bowel Sounds, Soft Genitalia: Deferred Pelvic: Deferred Rectal: Deferred Extremities: No calf tenderness, Normal capillary refill, Normal inspection, Normal range of motion, Non-tender, No pedal edema Musculoskeletal : Apperance: Normal Neurologic: Alert, venture capitalist II-XII nml as Tested, No Motor Deficits, Normal Affect, Normal Mood, No Sensory Deficits Cerebellar Function: Normal Reflexes: Normal Skin: Dry, Normal Color, Warm Lymphatic: No Adenopathy Was a procedure done? Was a procedure done?: No EKG EKG : Pulse Rate (adult): 70 [place]: Normal Cardiac Rhythm: Paced Hypertrophy: None ST: Nonsp Differential Dx Considerations may include: ACS [place], generalized weakness, CHF X-Ray, Labs, Meds, VS Vital Signs Date Time Temp Pulse Resp B/P (MAP) Pulse Ox O2 Delivery O2 Flow Rate FiO2 07/24/24 16:00 71 07/24/24 15:38 98.8 63 11 174/45 (88) 97 98.8 07/24/24 15:00 63 11 97 Nasal Cannula* 3 32 07/24/24 14:56 20 96 Nasal Cannula* 3 32 07/24/24 14:43 98.4 70 20 140/66 (90) 96 07/24/24 14:38 72 Lab Test 07/24/24 16:22 07/24/24 15:23 Range/Units Troponin I High Sensitivity Pending 22 </=34 ng/L White Blood Count 8.8 4.4-10.8 10^3/uL Red Blood Count 4.57 4.0-5.20 10^6/uL Hemoglobin 13.3 12.2-16.2 g/dL Hematocrit 40.9 36.0-46.0 % Mean Corpuscular Volume 89.5 80.0-100.0 fL Mean Corpuscular Hemoglobin 29.1 28.0-32.0 pg Mean Corpuscular Hemoglobin Concent 32.5 32.0-36.0 g/dL Red Cell Distribution Width 13.9 11.8-14.3 % Platelet Count 244 140-450 10^3/uL Mean Platelet Volume 8.4 6.9-10.8 fL Neutrophils (%) (Auto) 61.2 37.0-80.0 % Lymphocytes (%) (Auto) 27.0 10.0-50.0 % Monocytes (%) (Auto) 8.1 0.0-12.0 % Eosinophils (%) (Auto) 3.1 0.0-7.0 % Basophils (%) (Auto) 0.6 0.0-2.0 % Neutrophils # (Auto) 5.4 1.6-8.6 10 ^3/uL Lymphocytes # (Auto) 2.4 0.4-5.4 10 ^3/uL Monocytes # (Auto) 0.7 0-1.3 10 ^3/uL Eosinophils # (Auto) 0.3 0-0.8 10 ^3/uL Basophils # (Auto) 0.1 0-0.2 10 ^3/uL Nucleated Red Blood Cells 0.1 % Sodium Level 143 136-145 mmol/L Potassium Level 4.3 3.5-5.1 mmol/L Chloride Level 106 98-107 mmol/L Carbon Dioxide Level 29 20-31 mmol/L Anion Gap 8 5-15 Blood Urea Nitrogen 34 H 9-23 mg/dL Creatinine 1.44 H 0.550-1.02 mg/dL Glomerular Filtration Rate Calc 37 >90 mL/min BUN/Creatinine Ratio 23.6 H 10.0-20.0 Serum Glucose 95 74-106 mg/dL Calcium Level 10.1 8.7-10.4 mg/dL Chest x-ray shows: Findings/Impression: Frontal chest radiograph demonstrates no acute osseous or superficial soft tissue abnormalities. Left chest wall ICD. The trachea is midline. Cardiomegaly. No pneumothorax, pleural effusions, or consolidations. IV Hep-Lock was established. The CBC is within normal limits. The chemistry panel shows a BUN of 34 creatinine of 1.44. The troponin level is negative The patient was being admitted at this time. Images Reviewed?: Images reviewed and evaluated by me Time of 1ST Reevaluation: 15:15 Reevaluation 1ST: Unchanged Patient Education/Counseling: Diagnosis, Treatment, Prognosis Family Education/Counseling: No Family Present Departure 1 Departure Time of Disposition: 16:45 Impression: Primary Impression: Acute coronary syndrome Disposition: 09 ADMITTED INPATIENT Admit to: [facility] Condition: Fair Critical Care Note Critical Care Time?: Yes (35 min-critical care time only) Stability Stability form required: Yes Unstable for transfer: Telemetry monitoring (Telemetry monitoring required), ED Physician Assesment (Clinical assesment) Heart Score Heart Score: Heart Score Response (Comments) Value History Slightly Suspicious 0 EKG Normal 0 Age >65 2 Risk Factors >3 or Hx ASHD 2 Troponin Normal limit 0 Total 4 I personally scribed for CHUCK STEWART MD ([email or web address]) on 07/24/24 at 15:00. Electronically submitted by Natalio Baugh ([email or web address]). CHUCK STEWART MD Jul 24, 2024 15:00
--- NOTE | 2024-07-24 15:18 | DVH ---
EXAM: XY CHEST PORTABLE TECHNIQUE: Single frontal chest radiograph CLINICAL HISTORY: cp COMPARISON: XY CHEST PORTABLE on DOS: 07/12/24, XY CHEST PORTABLE on DOS: 06/18/24, XY CHEST PORTABLE o n DOS: 05/24/24 Findings/Impression: Frontal chest radiograph demonstrates no acute osseous or superficial soft tissue abnormalities. Left chest wall ICD. The trachea is midline. Cardiomegaly. No pneumothorax, pleural effusions, or consolidations.
[2024-07-24 15:48] LABS: Basophils # (auto) 0.1 10 ^3/uL (0-0.2); Basophils % (auto) 0.6 % (0.0-2.0); Eosinophils # (auto) 0.3 10 ^3/uL (0-0.8); Eosinophils % (auto) 3.1 % (0.0-7.0); Hematocrit 40.9 % (36.0-46.0); Hemoglobin 13.3 g/dL (12.2-16.2); Lymphocytes # (auto) 2.4 10 ^3/uL (0.4-5.4); Mean Corpuscular Hemoglobin 29.1 pg (28.0-32.0); Mean Corpuscular Hgb Conc. 32.5 g/dL (32.0-36.0); Mean Corpuscular Volume 89.5 fL (80.0-100.0); Monocytes # (auto) 0.7 10 ^3/uL (0-1.3); Monocytes % (auto) 8.1 % (0.0-12.0); Neutrophils # (auto) 5.4 10 ^3/uL (1.6-8.6); Neutrophils % (auto) 61.2 % (37.0-80.0); Nucleated Red Blood Cells % 0.1 %; Platelet Count (auto) 244 10^3/uL (140-450); Red Blood Cells 4.57 10^6/uL (4.0-5.20); Red Cell Distribution Width 13.9 % (11.8-14.3); White Blood Cell 8.8 10^3/uL (4.4-10.8)
[2024-07-24 15:56] LABS: Chloride 106 mmol/L (98-107); Potassium 4.3 mmol/L (3.5-5.1); Sodium 143 mmol/L (136-145)
[2024-07-24 15:57] LABS: Anion Gap 8 (5-15); Carbon Dioxide 29 mmol/L (20-31)
[2024-07-24 15:58] LABS: Calcium 10.1 mg/dL (8.7-10.4)
[2024-07-24 16:02] LABS: BUN/Creatinine Ratio 23.6 (10.0-20.0); Glucose 95 mg/dL (74-106)
[2024-07-24 16:03] LABS: Blood Urea Nitrogen 34 mg/dL (9-23)
[2024-07-24 19:58] LABS: Urine Bacteria None Seen /hpf (None Seen)
[2024-07-24] MEDS: IPRATROPIUM BROM 0.5 MG/2.5ML INH SOL NEB ONE (19:59)
[2024-07-24] MEDS: ALBUTEROL SULF 2.5 MG/0.5ML(0.5%) NEB SOLN NEB ONE (19:59)
[2024-07-24] MEDS: ALBUTEROL SULF 2.5 MG/0.5ML(0.5%) NEB SOLN ONE (20:00)
[2024-07-24] MEDS: IPRATROPIUM BROM 0.5 MG/2.5ML INH SOL ONE (20:00)
[2024-07-24 20:11] LABS: Urine Blood Negative /uL (Negative); Urine Clarity Clear (Clear); Urine Color Light-Yellow (Yellow); Urine Hyaline Cast MOD /lpf (0 - 2); Urine Protein, UAD Negative (Negative); Urine Specific Gravity 1.014 (1.001-1.035); Urine Squamous Epithelial Cell FEW /hpf (<5); Urine Urobilinogen Normal (Negative); Urine WBC 3 /HPF (0-5)
[2024-07-24] MEDS: ONDANSETRON HCL 4 MG/2 ML VIAL IV ONE (20:29)
[2024-07-24] MEDS ORDERED: ACETAMINOPHEN 325 MG TAB PO PRN (21:00)
[2024-07-24] MEDS ORDERED: DOCUSATE SOD 100 MG CAP PO PRN (21:00)
[2024-07-24 21:05] VITALS: PULSE 75; RESP 18; O2SAT 95
[2024-07-24 21:45] VITALS: PULSE 62; RESP 16; O2SAT 96
[2024-07-24] MEDS ORDERED: NITROGLYCERIN 0.4 MG SL TAB SL PRN (22:00)
[2024-07-24] MEDS: CARVEDILOL 3.125 MG TAB PO SCH (22:00)
--- NOTE | 2024-07-24 22:00 | DVHHP2 ---
History of Present Illness Reason for Visit: Acute coronary syndrome History of Present Illness The patient is a 79-year-old female with multiple past medical history including COPD, CHF, Coronary artery disease, asthma hypertension, and hyperlipidemia presented to [facility] with complaint of chest pain. Patient reports symptoms progressively get worse with shortness of breaths, substernal chest pain, radiating to her left arm. 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 She decided to sign for DNR which is in patient's chart. Patient was seen and evaluated in the ED, laboratory data shows WBC 8.8, platelets 244, sodium 143, potassium 4.3, BUN 34, creatinine 1.44, GFR 37, glucose 95, troponin 22, blood pressure 142/59, heart rate 72, temperature 98.6 F, O2 saturation 96% on oxygen. Urinalysis positive for urinary tract infection. Chest x-ray revealing left chest wall ICD, no pneumothorax, pleural effusions, or consolidations. Patient was started on IV antibiotic regimen ciprofloxacin, please see medication orders section in the computer. On my assessment, patient denies chest pain at this moment, no headache, no dizziness, no diaphoresis, currently on oxygen, no nausea, no vomiting, no fever, no chills. Patient was admitted for further evaluation and medical management. Past Medical History Anemia, Anxiety, Asthma, CAD, CHF, COPD, Depression, GERD, Gout, High Lipids, HTN, Kidney Stones, [place], UTI'S, Ovarian Cysts Past Surgical History Appendectomy, CABG, Hysterectomy, Pacemaker, PTCA, 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, Cardiac Stent x6 Family History Reviewed, noncontributory to the management of this case. Past Social History The patient lives at home, denies smoking, alcohol or illicit drugs abuse. Review of Systems Constitutional: Yes: Weakness; No: Fever, Chills, Sweats, Malaise, Other Eyes: No: Pain, Vision change, Conjunctivae inflammation, Eyelid inflammation, Other, Redness ENT: No: Ear pain, Ear discharge, Nose pain, Nose discharge, Nose congestion, Mouth pain, Mouth swelling, Throat pain, Throat swelling, Other Respiratory: Shortness of breath; No: Cough, Dry, SOB with excertion, Wheezing, Hemoptysis, Pleuritic Pain, Sputum, Wheezing, Other Cardiovascular: Chest Pain; No: Palpitations, Orthopnea, Paroxysmal Noc. Dyspnea, Edema, Lt Headedness, Other Gastrointestinal: Abdominal Pain; No: Nausea, Vomiting, Diarrhea, Constipation, Melena, Hematochezia, Other Genitourinary: No Dysuria, No Frequency, No Incontinence, No Hematuria, No Retention, No Other Musculoskeletal: back pain; No: other, neck pain, shoulder pain, arm pain, hand pain, leg pain, foot pain Skin: No: Rash, Lesions, Jaundice, Bruising, Other Neurological: No: Weakness, Numbness, Incoordination, Change in speech, Confusion, Seizures, Other Allergies: Coded Allergies: Ceftriaxone (Verified Allergy, Intermediate, generalized rash, 11/08/22) [employer]PER[employer]CARLENE MEJIA Hydrocodone (Verified Allergy, Unknown, rash, 05/18/23) tylenol is okay per patient Medications Current Medications Medications Dose Ordered Sig/Asha Route Start Time Stop Time Status Last Admin Dose Admin Aspirin 81 mg DAILY PO 07/25/24 10:00 Atorvastatin Calcium 20 mg HS PO 07/24/24 22:00 Clopidogrel Bisulfate 75 mg DAILY PO 07/25/24 10:00 Albuterol 2.5 mg Q4HPRN PRN NEB 07/24/24 21:00 Ipratropium [place] 0.5 mg Q4HPRN PRN NEB 07/24/24 21:00 Pantoprazole Sodium 40 mg DAILY IV 07/25/24 10:00 Furosemide 40 mg DAILY IV 07/25/24 10:00 Carvedilol 3.125 mg Q12HR PO 07/24/24 22:00 Sodium Chloride 10 ml Q8HR IV 07/24/24 22:00 Ondansetron HCl 4 mg Q4HP PRN IV 07/24/24 21:00 Docusate Sodium 100 mg BIDPRN PRN PO 07/24/24 21:00 Acetaminophen 650 mg Q6HP PRN PO 07/24/24 21:00 Ciprofloxacin 200 ml @ 200 mls/hr Q12HR IV 07/24/24 22:00 07/31/24 21:59 Exam Vital Signs Vital Signs Date Time Temp Pulse Resp B/P (MAP) Pulse Ox O2 Delivery O2 Flow Rate FiO2 07/24/24 21:05 75 18 95 3.0 32 07/24/24 20:31 142/59 07/24/24 20:31 98.5 98.5 07/24/24 20:01 Nasal Cannula* General Appearance: Alert, Oriented X3, Cooperative, No acute distress HEENT: Atraumatic, PERRLA, EOMI, Mucous membr. moist/pink Respiratory: Clear to auscultation, Normal air movement Cardiovascular: Regular rate, Normal S1, Normal S2, No murmurs Abdominal: Normal bowel sounds, Soft, No tenderness, No hepatospenomegaly, No masses Extremities: No clubbing, No cyanosis, No edema, Normal pulses, No tenderness/swelling Skin: No rashes, No breakdown, No significant lesion Neuro: Normal speech, Normal tone, Sensation intact, Cranial nerves 3-12 NL, Reflexes 2+, Other (Generalized weakness) Psych/Mental Status: Mental status NL, Mood NL Labs/Xrays Labs Test 07/24/24 19:50 07/24/24 18:41 07/24/24 15:23 Range/Units Urine Color Light-yellow Yellow Urine Clarity Clear Clear Urine pH 5.0 5.0-9.0 Urine Specific [place] 1.014 1.001-1.035 Urine Protein Negative Negative Urine Ketones Negative Negative Urine Blood Negative Negative /uL Urine Nitrite Negative Negative Urine Bilirubin Negative Negative Urine Urobilinogen Normal Negative mg/dL Urine Leukocyte Esterase 2+ Negative /uL Urine RBC 2 0 - 4 /hpf Urine Microscopic WBC 3 0-5 /HPF Urine Squamous Epithelial Cells Few <5 /hpf Urine Bacteria None seen None Seen /hpf Urine Hyaline Casts Mod 0 - 2 /lpf Urine Glucose Normal Normal mg/dL Troponin I High Sensitivity 22 </=34 ng/L White Blood Count 8.8 4.4-10.8 10^3/uL Red Blood Count 4.57 4.0-5.20 10^6/uL Hemoglobin 13.3 12.2-16.2 g/dL Hematocrit 40.9 36.0-46.0 % Mean Corpuscular Volume 89.5 80.0-100.0 fL Mean Corpuscular Hemoglobin 29.1 28.0-32.0 pg Mean Corpuscular Hemoglobin Concent 32.5 32.0-36.0 g/dL Red Cell Distribution Width 13.9 11.8-14.3 % Platelet Count 244 140-450 10^3/uL Mean Platelet Volume 8.4 6.9-10.8 fL Neutrophils (%) (Auto) 61.2 37.0-80.0 % Lymphocytes (%) (Auto) 27.0 10.0-50.0 % Monocytes (%) (Auto) 8.1 0.0-12.0 % Eosinophils (%) (Auto) 3.1 0.0-7.0 % Basophils (%) (Auto) 0.6 0.0-2.0 % Neutrophils # (Auto) 5.4 1.6-8.6 10 ^3/uL Lymphocytes # (Auto) 2.4 0.4-5.4 10 ^3/uL Monocytes # (Auto) 0.7 0-1.3 10 ^3/uL Eosinophils # (Auto) 0.3 0-0.8 10 ^3/uL Basophils # (Auto) 0.1 0-0.2 10 ^3/uL Nucleated Red Blood Cells 0.1 % Sodium Level 143 136-145 mmol/L Potassium Level 4.3 3.5-5.1 mmol/L Chloride Level 106 98-107 mmol/L Carbon Dioxide Level 29 20-31 mmol/L Anion Gap 8 5-15 Blood Urea Nitrogen 34 H 9-23 mg/dL Creatinine 1.44 H 0.550-1.02 mg/dL Glomerular Filtration Rate Calc 37 >90 mL/min BUN/Creatinine Ratio 23.6 H 10.0-20.0 Serum Glucose 95 74-106 mg/dL Calcium Level 10.1 8.7-10.4 mg/dL PATIENT: MONICA JAMES ACCT: [id number] UNIT: [id number] : 1945 LOC: ER ROOM / BED: / AGE / SEX: 79 / F ADM STATUS: REG ER SERVICE 1448 ORDERING PHYSICIAN: CHUCK STEWART MD PROCEDURE(s): CXRP - CHEST PORTABLE REASON: ORDER NUMBER(s): [id number], ACCESSION NUMBER(s): [id number] EXAM: XY CHEST PORTABLE TECHNIQUE: Single frontal chest radiograph CLINICAL HISTORY: COMPARISON: XY CHEST PORTABLE on DOS: 07/12/24, XY CHEST PORTABLE on DOS: 06/18/24, XY CHEST PORTABLE on DOS: 05/24/24 Findings/Impression: Frontal chest radiograph demonstrates no acute osseous or superficial soft tissue abnormalities. Left chest wall ICD. The trachea is midline. Cardiomegaly. No pneumothorax, pleural effusions, or consolidations. Assessment/Plan Assessment/Plan Acute coronary syndrome Abdominal pain Acute renal injury Acute respiratory distress Urinary tract infection Generalized weakness Plan 1. Admit to telemetry unit 2. Breathing treatment 3. Pain control management 4. IV antibiotic management 5. Management of fluids and electrolytes 6. Consultation for hospitalist 7. Diagnostic test chest x-ray 8. DVT prophylaxis on aspirin 9. Repeat labs CBC, CMP in a.m. 10. Home medication reviewed and reconciled 11. Continue with current medical management 12. Treatment plan discussed with patient and RN. Patient verbalized understanding. Plan discussed with: Patient, Other (RN) My Orders Orders - LIBORIO DECKER DNP Procedure Category Date Status Time Aspirin Tablet PHA 07/25/24 In Process 10:00 Atorvastatin (Lipitor) PHA 07/24/24 In Process 22:00 Clopidogrel Bisulfate PHA 07/25/24 In Process (Plavix) 10:00 Albuterol Medneb PHA 07/24/24 In Process (Ventolin Medneb) 21:00 Ipratropium Medneb PHA 07/24/24 In Process (Atrovent Medneb) 21:00 Pantoprazole PHA 07/25/24 In Process (Protonix) 10:00 Furosemide Injection PHA 07/25/24 In Process (Lasix Injection) 10:00 Carvedilol Tablet PHA 07/24/24 In Process (Coreg Tablet) 22:00 B-Type Natriuretic LAB 07/24/24 In Process Peptide 20:52 Allergies AME 07/24/24 In Process 20:52 Sodium Chloride Lock PHA 07/24/24 In Process (Saline Lock Ns) 22:00 Oxygen Per Hour RT 07/24/24 Transmitted 20:52 Ondansetron Hcl PHA 07/24/24 In Process (Zofran) 21:00 Docusate Sodium PHA 07/24/24 In Process Capsule (Colace 21:00 Complete Blood Count LAB 07/25/24 Verified 04:00 Comprehensive LAB 07/25/24 Verified Metabolic Panel 04:00 Cardiac DIET 07/25/24 Transmitted Diet-2gna,Lofat,Lochol Breakfast Condition: Serious AME 07/24/24 In Process 20:52 Acetaminophen Tablet PHA 07/24/24 In Process (Tylenol Tablet) 21:00 Bedrest With Bathroom AME 07/24/24 In Process Privileg 20:52 Sequential AME 07/24/24 In Process Compression Device Urine Bacterial MELVIN 07/24/24 In Process Culture 20:52 Ciprofloxacin PHA 07/24/24 In Process 400mg/200ml (Cipro Iv) 22:00 Admit ADMIT 07/24/24 Verified 21:58 Nitroglycerin [facility] 07/24/24 Verified Sublingual (Ntrostat 22:00 Morphine Sulfate PHA 07/24/24 Verified Injection 22:00 Notify Of Changes [facility] 07/24/24 Verified From Base 21:58 On Site Manager For [facility] 07/24/24 Verified 24 Hours 21:58 Emergency Dysrhythmia [facility] 07/24/24 Verified Protocol 21:58 Rhythm Strips Once [facility] 07/24/24 Verified Every Shift 21:58 Oxygen By Nasal RT 07/24/24 Verified Cannula 21:58 Code Status CODE 07/24/24 Verified 21:58 Problem List: (1) Acute coronary syndrome (2) Abdominal pain (3) UTI (urinary tract infection) (4) Acute renal injury (5) Acute respiratory distress (6) General weakness Date of Service: Jul 24, 2024 Billing Provider: LIBORIO DECKER DNP Common Visit Codes: [id number] INP/OBS CARE (HIGH) LIBORIO DECKER DNP Jul 24, 2024 22:00
[2024-07-24] MEDS: SODIUM CHLOR 0.9% PF (SALINE LOCK) 10ML VIAL/SYR IV SCH (22:18)
[2024-07-24] MEDS: CIPROFLOXACIN 400MG/200ML 200 ML IV SCH (22:24)
[2024-07-24] MEDS: ATORVASTATIN 20 MG TAB PO SCH (22:25)
[2024-07-25] VITALS (11 sets, daily range): BP systolic 104–134; BP diastolic 58–77; PULSE 64–74; RESP 16–20; TEMP 36.8; O2SAT 95–100
[2024-07-25] MEDS: ONDANSETRON HCL 4 MG/2 ML VIAL IV PRN (01:19)
[2024-07-25] MEDS: MORPHINE SULFATE INJ 2 MG/ml SYRG IV ONE (01:21)
[2024-07-25] MEDS: ALBUTEROL SULF 2.5 MG/0.5ML(0.5%) NEB SOLN NEB PRN (08:08)
[2024-07-25] MEDS: IPRATROPIUM BROM 0.5 MG/2.5ML INH SOL NEB PRN (08:08)
[2024-07-25] MEDS: FUROSEMIDE 40 MG/4 ML VIAL IV SCH (09:43)
[2024-07-25] MEDS: PANTOPRAZOLE 40 MG/10 ML VIAL INJ IV SCH (09:43)
[2024-07-25] MEDS: ASPirin 81 mg TAB PO SCH (09:43)
[2024-07-25] MEDS: CLOPIDOGREL BISULFATE 75 MG TAB PO SCH (09:44)
[2024-07-25 10:01] LABS: Basophils # (auto) 0.1 10 ^3/uL (0-0.2); Basophils % (auto) 0.8 % (0.0-2.0); Eosinophils # (auto) 0.3 10 ^3/uL (0-0.8); Eosinophils % (auto) 4.5 % (0.0-7.0); Hematocrit 38.9 % (36.0-46.0); Hemoglobin 13.1 g/dL (12.2-16.2); Lymphocytes % (auto) 26.2 % (10.0-50.0); Mean Corpuscular Hemoglobin 29.8 pg (28.0-32.0); Mean Corpuscular Hgb Conc. 33.6 g/dL (32.0-36.0); Mean Corpuscular Volume 88.6 fL (80.0-100.0); Monocytes # (auto) 0.8 10 ^3/uL (0-1.3); Monocytes % (auto) 10.3 % (0.0-12.0); Neutrophils # (auto) 4.4 10 ^3/uL (1.6-8.6); Neutrophils % (auto) 58.2 % (37.0-80.0); Platelet Count (auto) 234 10^3/uL (140-450); Red Blood Cells 4.39 10^6/uL (4.0-5.20); Red Cell Distribution Width 14.1 % (11.8-14.3); White Blood Cell 7.6 10^3/uL (4.4-10.8)
[2024-07-25 10:21] LABS: Alanine Aminotransferase 10 U/L (7-40); Albumin 4.1 g/dL (3.2-4.8); Alkaline Phosphatase 63 U/L (46-116); Anion Gap 7 (5-15); Aspartate Aminotransferase 29 U/L (13-40); BUN/Creatinine Ratio 16.7 (10.0-20.0); Bilirubin, Total 0.4 mg/dL (0.2-1.0); Calcium 9.3 mg/dL (8.7-10.4); Carbon Dioxide 28 mmol/L (20-31); Chloride 105 mmol/L (98-107); Sodium 140 mmol/L (136-145); Total Protein 6.1 g/dL (5.7-8.2)
[2024-07-25 10:23] LABS: Blood Urea Nitrogen 24 mg/dL (9-23); Glucose 116 mg/dL (74-106)
[2024-07-25] MEDS: MORPHINE SULFATE INJ 2 MG/ml SYRG IV PRN (12:06)
--- NOTE | 2024-07-25 13:03 | DVHPN2 ---
Assessment/Plan My Orders Orders - WINSOME GOMEZ MD Procedure Category Date Status Time Acetaminophen Tablet PHA 07/25/24 Logged (Tylenol Tablet) 14:00 Duloxetine Hcl PHA 07/25/24 Logged Capsule (Cymbalta 22:00 Morphine Extended PHA 07/25/24 Logged Release Tab (Oramorph 14:00 Gabapentin Capsule PHA 07/25/24 Logged (Neurontin Capsule) 14:00 Basic Metabolic Panel LAB 07/26/24 Verified 04:00 Complete Blood Count LAB 07/26/24 Verified 04:00 WINSOME GOMEZ MD Jul 25, 2024 13:03
[2024-07-25] MEDS: GABAPENTIN 300 MG CAP PO SCH (14:23)
[2024-07-25] MEDS: ACETAMINOPHEN 325 MG TAB PO SCH (14:25)
[2024-07-25] MEDS: MORPHINE SULF 15mg ER tab PO SCH (14:25)
--- NOTE | 2024-07-25 15:15 | DVHDS2 ---
Discharge Summary Date of Admission Jul 24, 2024 at 21:58 Date of Discharge: Jul 25, 2024 Labs/Diagnostic Data: Laboratory Results Test 07/25/24 09:39 07/24/24 19:50 07/24/24 18:41 White Blood Count 7.6 10^3/uL (4.4-10.8) Red Blood Count 4.39 10^6/uL (4.0-5.20) Hemoglobin 13.1 g/dL (12.2-16.2) Hematocrit 38.9 % (36.0-46.0) Mean Corpuscular Volume 88.6 fL (80.0-100.0) Mean Corpuscular Hemoglobin 29.8 pg (28.0-32.0) Mean Corpuscular Hemoglobin Concent 33.6 g/dL (32.0-36.0) Red Cell Distribution Width 14.1 % (11.8-14.3) Platelet Count 234 10^3/uL (140-450) Mean Platelet Volume 8.2 fL (6.9-10.8) Neutrophils (%) (Auto) 58.2 % (37.0-80.0) Lymphocytes (%) (Auto) 26.2 % (10.0-50.0) Monocytes (%) (Auto) 10.3 % (0.0-12.0) Eosinophils (%) (Auto) 4.5 % (0.0-7.0) Basophils (%) (Auto) 0.8 % (0.0-2.0) Neutrophils # (Auto) 4.4 10 ^3/uL (1.6-8.6) Lymphocytes # (Auto) 2.0 10 ^3/uL (0.4-5.4) Monocytes # (Auto) 0.8 10 ^3/uL (0-1.3) Eosinophils # (Auto) 0.3 10 ^3/uL (0-0.8) Basophils # (Auto) 0.1 10 ^3/uL (0-0.2) Nucleated Red Blood Cells 0.0 % Sodium Level 140 mmol/L (136-145) Potassium Level 4.0 mmol/L (3.5-5.1) Chloride Level 105 mmol/L (98-107) Carbon Dioxide Level 28 mmol/L (20-31) Anion Gap 7 (5-15) Blood Urea Nitrogen 24 mg/dL (9-23) Creatinine 1.44 mg/dL (0.550-1.02) Glomerular Filtration Rate Calc 37 mL/min (>90) BUN/Creatinine Ratio 16.7 (10.0-20.0) Serum Glucose 116 mg/dL (74-106) Calcium Level 9.3 mg/dL (8.7-10.4) Total Bilirubin 0.4 mg/dL (0.2-1.0) Aspartate Amino Transferase (AST) 29 U/L (13-40) Alanine Aminotransferase (ALT) 10 U/L (7-40) Alkaline Phosphatase 63 U/L (46-116) Total Protein 6.1 g/dL (5.7-8.2) Albumin 4.1 g/dL (3.2-4.8) Urine Color Light-yellow (Yellow) Urine Clarity Clear (Clear) Urine pH 5.0 (5.0-9.0) Urine Specific [place] 1.014 (1.001-1.035) Urine Protein Negative (Negative) Urine Ketones Negative (Negative) Urine Blood Negative /uL (Negative) Urine Nitrite Negative (Negative) Urine Bilirubin Negative (Negative) Urine Urobilinogen Normal mg/dL (Negative) Urine Leukocyte Esterase 2+ /uL (Negative) Urine RBC 2 /hpf (0 - 4) Urine Microscopic WBC 3 /HPF (0-5) Urine Squamous Epithelial Cells Few /hpf (<5) Urine Bacteria None seen /hpf (None Seen) Urine Hyaline Casts Mod /lpf (0 - 2) Urine Glucose Normal mg/dL (Normal) Troponin I High Sensitivity 22 ng/L (</=34) B-Type Natriuretic Peptide 430.12 pg/mL (0-100) Other Laboratory Tests 07/25/24 09:39 Brief Hx & Hospital Course: 79 yo F well known to our service. living in [facility], complained of recurrent abdominal pain, recently discharged with fosfomycin for recurrent UTI and clearing colonization. stable to pr home to resume prior meds. Needs to follow up with outpatient Condition at Discharge: Fair Final Diagnosis/Problems List Acute COPD exacerbation: on 4 L home oxygen HFrEF (Heart failure with reduced ejection fraction) - LVEF was around 10% noted in 11/22/2023 Acute on chronic hypoxic respiratory failure CAD, history of CABG and PTCA with 6 stents LENORA: likely due to questionable vasomotor nephropathy on CKD 3A Facial numbness: rule out [id number] CT scan of head and carotid ultrasound for possible CVA. Follow with urine culture as well. Urinary tract infection, recurrent hx of ESBL Biotronik of AICD: Atrial-sensed ventricular-paced rhythm History of chronic recurrent UTI History of Parkinsonism , baseline wheelchair-bound Dyslipidemia History of GERD: continue PPI chronic kidney disorder stage III history of diverticulosis shelter resident vitamin-D deficiency acute on acute abdominal pain nonspecific neurological symptoms Opioid seeking behaviour Discharge Disposition: Home Discharge Instruct/Medications Diet: Consistent carbohydrate, Cardiac 2g Na,low cholest Activity: No Restrictions, As Tolerated Medications: resume home meds 36 Discharge Statement: "Patient was advised to return to the ER or call 911 if any headaches, dizziness, shortness of breath, chest pain, abdominal pain, bleeding, fevers, or worsening of medical condition. Patient was counseled about treatment plan, medications, possible side effects, patientverbalized understanding. All questions were answered to the best of my ability. This discharge took greater then 30 minutes in planning, reviewing documentation, counseling the patient, and discussing with other team members." ASSESSMENT ASSESSMENT Assessment Acute COPD exacerbation: on 4 L home oxygen HFrEF (Heart failure with reduced ejection fraction) - LVEF was around 10% noted in 11/22/2023 Acute on chronic hypoxic respiratory failure CAD, history of CABG and PTCA with 6 stents LENORA: likely due to questionable vasomotor nephropathy on CKD 3A Facial numbness: rule out [id number] CT scan of head and carotid ultrasound for possible CVA. Follow with urine culture as well. Urinary tract infection, recurrent hx of ESBL Biotronik of AICD: Atrial-sensed ventricular-paced rhythm History of chronic recurrent UTI History of Parkinsonism , baseline wheelchair-bound Dyslipidemia History of GERD: continue PPI chronic kidney disorder stage III history of diverticulosis shelter resident vitamin-D deficiency acute on acute abdominal pain nonspecific neurological symptoms Opioid seeking behaviour Date of Service: Jul 25, 2024 Billing Provider: WINSOME GOMEZ MD Common Visit Codes: 31687-ZXZ/OBS DISCH DAY >30min WINSOME GOMEZ MD Jul 25, 2024 15:15
[2024-07-25] MEDS ORDERED: DULoxetine HCL 30 MG CAP PO SCH (22:00)
--- NOTE | 2024-07-27 10:44 | ECG ---
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
== END 2024-07-25 17:40 | disposition home or self-care (01) | DRG 291 ==
LOC: EDUNIT# 14:31 → ER 14:31 → EDBD 14:31 → OVERFLOW 21:58 → TELE-CENTR 23:48
PROVIDERS: ADMIT Nurse Practitioner Family; ATTEND Nurse Practitioner Family
DX: I13.0 Hypertensive heart and chronic kidney disease with heart failure and stage 1 through stage 4 chronic kidney disease, or unspecified chronic kidney disease (principal); I50.23 Acute on chronic systolic (congestive) heart failure; J96.21 Acute and chronic respiratory failure with hypoxia; N17.0 Acute kidney failure with tubular necrosis; I24.9 Acute ischemic heart disease, unspecified; J44.1 Chronic obstructive pulmonary disease with (acute) exacerbation; N39.0 Urinary tract infection, site not specified; Z66 Do not resuscitate; E55.9 Vitamin D deficiency, unspecified; E78.5 Hyperlipidemia, unspecified; N18.31 Chronic kidney disease, stage 3a; K21.9 Gastro-esophageal reflux disease without esophagitis; G20.C Parkinsonism, unspecified; I25.2 Old myocardial infarction; I25.10 Atherosclerotic heart disease of native coronary artery without angina pectoris; Z79.899 Other long term (current) drug therapy; Z79.51 Long term (current) use of inhaled steroids; Z79.82 Long term (current) use of aspirin; Z90.710 Acquired absence of both cervix and uterus; Z86.19 Personal history of other infectious and parasitic diseases; Z99.3 Dependence on wheelchair; Z95.5 Presence of coronary angioplasty implant and graft; Z88.5 Allergy status to narcotic agent; Z87.442 Personal history of urinary calculi; Z87.440 Personal history of urinary (tract) infections; Z95.1 Presence of aortocoronary bypass graft; Z88.8 Allergy status to other drugs, medicaments and biological substances; Z90.49 Acquired absence of other specified parts of digestive tract
CPT/HCPCS: 36415; 71045; 80048; 80053; 81001; 83880; 84484; 85025; 87081; 87086; 93005; 94640; 96374; 96375; 96376; 99291; G0378; J2405; J2470

== ENCOUNTER 2024-07-29 00:42 | Emergency (ER) | payer OTHER, MEDICAID ==
[~2024-07-29] VITALS: Ht 162.6 cm; Wt 72.7 kg
[2024-07-29 01:16] LABS: Basophils # (auto) 0 10 ^3/uL (0-0.2); Basophils % (auto) 0.7 % (0.0-2.0); Eosinophils # (auto) 0.3 10 ^3/uL (0-0.8); Eosinophils % (auto) 3.8 % (0.0-7.0); Hematocrit 41.4 % (36.0-46.0); Hemoglobin 13.9 g/dL (12.2-16.2); Lymphocytes # (auto) 2.1 10 ^3/uL (0.4-5.4); Lymphocytes % (auto) 30.6 % (10.0-50.0); Mean Corpuscular Hemoglobin 30.1 pg (28.0-32.0); Mean Corpuscular Hgb Conc. 33.7 g/dL (32.0-36.0); Mean Corpuscular Volume 89.4 fL (80.0-100.0); Monocytes # (auto) 0.7 10 ^3/uL (0-1.3); Monocytes % (auto) 11.2 % (0.0-12.0); Neutrophils # (auto) 3.6 10 ^3/uL (1.6-8.6); Neutrophils % (auto) 53.7 % (37.0-80.0); Nucleated Red Blood Cells % 0.1 %; Platelet Count (auto) 253 10^3/uL (140-450); Red Blood Cells 4.63 10^6/uL (4.0-5.20); Red Cell Distribution Width 14.4 % (11.8-14.3); White Blood Cell 6.7 10^3/uL (4.4-10.8)
--- NOTE | 2024-07-29 01:18 | ED.PDOC ---
HPI Comments 79 year old female brought tin by EMS presents to the ED with a chief complaint of chest pain onset 5 days. Per EMS, patient is from [facility], was brought to ED due to substernal chest pain, radiates to LT arm, jaw. Patient states she is also experiencing shortness of breath, abdominal pain, "kidney pain". She was seen in this ED on 07/24/24 for similar symptoms, was admitted but decided to leave due "medication not helping her pain." PMHx LA, CHF, COPD, HLD, HTN, cardiac stents x6, pacemaker, depression, anxiety, asthma, anemia, GERD, GOUT. Denies nausea, vomiting, diarrhea, constiation, dizziness, blurry vision, headache, chills, cough, fever. No other symptoms or modifying factors present at this time. Chief Complaint: Chest Pain Time Seen by MD: 00:48 Primary Care Provider: HORTENCIA Reviewed Notes: Medications, Allergies Allergies: Coded Allergies: Ceftriaxone (Verified Allergy, Intermediate, generalized rash, 11/08/22) SOFTWARE MANAGERCARLENE MEJIA Hydrocodone (Verified Allergy, Unknown, rash, 05/18/23) tylenol is okay per patient Home Meds Active Scripts Fosfomycin Tromethamine (Fosfomycin Tromethamine) 3 Gm Pow, 3 GM PO DAILY for 3 Days, #3 POW Prov:BHARAT MICHELLE RESIDENT 07/22/24 Spironolactone (Aldactone) 25 Mg Tab, 25 MG PO DAILY for 30 Days, #30 TAB Prov:BHARAT MICHELLE RESIDENT 07/22/24 Oxybutynin Chloride (Oxybutynin Chloride) 5 Mg Tab, 5 MG PO Q8HR for 30 Days, #90 TAB Prov:BHARAT MICHELLE RESIDENT 07/22/24 Atorvastatin Calcium (ATORVASTATIN CALCIUM) 20 Mg Tab, 40 MG PO HS for 30 Days, #60 TAB Prov:BHARAT MICHELLE 07/22/24 Acetaminophen (Acetaminophen) 325 Mg Tab, 650 MG PO TID for 10 Days, #60 TAB Prov:BHARAT MICHELLE RESIDENT 07/22/24 Duloxetine Hydrochloride (Duloxetine Hydrochloride) 30 Mg Cap, 30 MG PO DAILY for 30 Days, #30 CAP Prov:WINSOME GOMEZ MD 04/29/24 Phenazopyridine HCl (Phenazopyridine Hydrochlo) 200 Mg Tab, 200 MG PO TID for 3 Days, #9 TAB Prov:NIRALI MARTINO RESIDENT 04/10/24 Primidone (MYSOLINE TABLET) 50 Mg Tb, 25 MG PO HS for 30 Days, #15 TAB Prov:NIRALI MARTINO RESIDENT 04/10/24 Clopidogrel Bisulfate (CLOPIDOGREL) 75 Mg Tab, 75 MG PO DAILY for 30 Days, #30 TAB 5 Refills Prov:YENNY FRAIRE MD 11/26/23 Ranolazine (Ranolazine ER) 500 Mg Tab, 500 MG PO BID for 30 Days, #60 TAB 2 Refills Prov:RUSSMAGAN Lovell RESIDENT 09/16/23 Sacubitril-Valsartan (Entresto 24-26 mg) 1 Tab Tab, 1 TAB PO BID for 30 Days, #60 TAB 3 Refills Prov:LEANNA BROWN DO 05/22/23 Reported Medications Oxycodone W/ Acetaminophen (Percocet 5/325MG) 1 Tab Tb, 1 TAB PO QID, #120 TAB 01/29/24 Polyethylene Glycol 3350 (Miralax) 17 Gm Pow, 17 GM PO DAILY PRN for FOR CONSTIPATION for 30 Days, #30 01/28/24 Lactobacillus (ACIDOPHILUS) Cap, 1 CAP PO BID for 30 Days, #60 09/05/23 Ipratropium-Albuterol (Ipratropium [place]/Albut) 1 Yuli Ylui, 1 VIAL NEB Q6HPRN PRN for SHORTNESS OF BREATH for 13 Days, #180 09/05/23 Fluticasone-Salmeterol (Fluticasone Propionate/SA 250-50 Mcg/Dose) 1 Aer Aer, 1 PUFF INH BID for 30 Days, #60 09/05/23 Albuterol Sulfate (Albuterol Sulfate Hfa) 108 Mcg/Act Aer, 2 PUFF INH Q4HPRN PRN for dyspnea for 17 Days, #18 09/05/23 Cholecalciferol (VITAMIN D3) 2,000 Unit Tab, 1 TAB PO BID for 30 Days, #60 08/28/23 Multiple Vitamin (Tab-A-Radha) Tab, 1 TAB PO DAILY for 30 Days, #30 08/28/23 Aspirin (Aspir-Low) 81 Mg Tab, 1 TAB PO DAILY for 30 Days, #30 4/3/24 Furosemide (Furosemide) 40 Mg Tab, 1 TAB PO DAILY 08/28/23 Ascorbic Acid (VITAMIN C TABLET) 500 Mg Tb, 1 TAB PO BID for 30 Days, #60 05/18/23 Pantoprazole Sodium Sesquihydr (Pantoprazole Sodium) 40 Mg Tab, 1 TAB PO DAILY 05/18/23 Carvedilol (Carvedilol) 3.125 Mg Tab, 1 TAB PO BID for 30 Days, #60 01/02/23 Fluoxetine HCl (Pmdd) (Fluoxetine HCl) 20 Mg Tab, 20 MG PO DAILY, TAB 05/30/20 Discontinued Reported Medications Atorvastatin Calcium (Lipitor) 20 Mg Tab, 1 TAB PO HS for 30 Days, #30 12/30/20 Discontinued Scripts Tamsulosin Hcl (Flomax) 0.4 Mg Cap, 0.4 MG PO QPM for 30 Days, #30 CAP Prov:BHARAT MICHELLE RESIDENT 10/18/23 Information Source: Patient, Emergency Med Personnel Mode of Arrival: EMS Severity: Moderate Timing: Days Duration: Since onset Prehospital treatment: None Location: Substernal Radiation: Jaw, Arm (L) Quality: Sharp, Pressure Onset: At Rest Cardiac Risk Factors: Hyperlipidemia, HTN History of: Similar pain in past, [place] Associated Signs and Symptoms: SOB, Abdominal Pain Past Medical History PAST MEDICAL HISTORY: Anemia, Anxiety, Asthma, CAD, CHF, COPD, Depression, GERD, Gout, High Lipids, HTN, Kidney Stones, LA, UTI'S Surgical History: Appendectomy, CABG, Hysterectomy, Pacemaker, PTCA, 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 [employer]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 Family History Family History: Reviewed,noncontributory to illness, Unknown Social History Smoker: Non-Smoker Alcohol: Denies ETOH Use Drugs: Denies Drug Use Lives In: Assisted Care Constitutional: denies: chills, diaphoresis, fatigue, fever, malaise, sweats, weakness, others EENTM: denies: blurred vision, double vision, ear bleeding, ear discharge, ear drainage, ear pain, ear ringing, eye pain, eye redness, hearing loss, mouth pain, mouth swelling, nasal discharge, nose bleeding, nose congestion, nose pain, photophobia, tearing, throat pain, throat swelling, voice changes, others Respiratory: reports: shortness of breath; denies: cough, hemoptysis, orthopnea, SOB at rest, SOB with excertion, stridor, wheezing, others Cardiovascular: reports: chest pain; denies: dizzy spells, diaphoresis, Dyspnea on exertion, edema, irregular heart beat, left arm pain, lightheadedness, palpitations, PND, syncope, others Gastrointestinal: reports: abdominal pain; denies: abdomen distended, blood streaked bowels, constipated, diarrhea, dysphagia, difficulty swallowing, hematemesis, melena, nausea, poor appetite, poor fluid intake, rectal bleeding, rectal pain, vomiting, others Genitourinary: denies: abnormal vagina bleeding, burning, dyspareunia, dysuria, flank pain, frequency, hematuria, incontinence, pain, , vagina discharge, urgency, others Neurological: reports: numbness (LT arm ); denies: dizziness, fainting, headache, left sided numbness, left sided weakness, paresthesia, pre-existing deficit, right sided numbness, right sided weakness, seizure, speech problems, tingling, tremors, weakness, others Musculoskeletal: reports: others (jaw pain); denies: back pain, gout, joint pain, joint swelling, muscle pain, muscle stiffness, neck pain Integumetry: denies: bruises, change in color, change in hair/nails, dryness, laceration, lesions, lumps, rash, wounds, others Allergic/Immunocompromised: denies: Difficulty Healing, Frequent Infections, Hives, Itching, others Hematologic/Lymphatic: denies: anemia, blood clots, easy bleeding, easy bruising, swollen glands, others Endocrine: denies: excessive hunger, excessive sweating, excessive thirst, excessive urination, flushing, intolerance to cold, intolerance to heat, unexpla ined weight gain, unexplained weight loss, others Psychiatric: denies: anxiety, bipolar disorder, depression, hopeless, panic disorder, schizophrenia, sleepless, suicidal, others All Other Systems: Reviewed and Negative Physical Exam General Appearance: No Apparent Distress, Normal HEENT: Normal ENT Inspection, Pharynx Normal, TMs Normal Neck: Full Range of Motion, Non-Tender, Normal, Normal Inspection Respiratory: Chest Non-Tender, Lungs Clear, No Accessory Muscle Use, No Respiratory Distress, Normal Breath Sounds Cardiovascular: No Edema, No JVD, No Murmur, No Gallop, Normal Peripheral Pulses, Regular Rate/Rhythm Breast Exam: Deferred Gastrointestinal: No Organomegaly, Non Tender, No Pulsatile Mass, Normal Bowel Sounds, Soft Genitalia: Deferred Pelvic: Deferred Rectal: Deferred Extremities: No calf tenderness, Normal capillary refill, Normal inspection, Normal range of motion, Non-tender, No pedal edema Musculoskeletal : Apperance: Normal Neurologic: Alert, english language learner tutor II-XII nml as Tested, No Motor Deficits, Normal Affect, Normal Mood, No Sensory Deficits Cerebellar Function: Normal Reflexes: Normal Skin: Dry, Normal Color, Warm Lymphatic: No Adenopathy Was a procedure done? Was a procedure done?: No CP Differential Dx Differential Diagnosis: Digoxin Toxicity, Hypoxia, MAT, LA Differential Diagnosis: HTN Essential, HTN Accelerated Differential Diagnosis: Gastritis X-Ray, Labs, Meds, VS Vital Signs Date Time Temp Pulse Resp B/P (MAP) Pulse Ox O2 Delivery O2 Flow Rate FiO2 07/29/24 00:50 98.4 71 16 129/83 (98) 97 07/29/24 00:47 64 Lab Test 07/29/24 01:05 Range/Units White Blood Count 6.7 4.4-10.8 10^3/uL Red Blood Count 4.63 4.0-5.20 10^6/uL Hemoglobin 13.9 12.2-16.2 g/dL Hematocrit 41.4 36.0-46.0 % Mean Corpuscular Volume 89.4 80.0-100.0 fL Mean Corpuscular Hemoglobin 30.1 28.0-32.0 pg Mean Corpuscular Hemoglobin Concent 33.7 32.0-36.0 g/dL Red Cell Distribution Width 14.4 H 11.8-14.3 % Platelet Count 253 140-450 10^3/uL Mean Platelet Volume 8.1 6.9-10.8 fL Neutrophils (%) (Auto) 53.7 37.0-80.0 % Lymphocytes (%) (Auto) 30.6 10.0-50.0 % Monocytes (%) (Auto) 11.2 0.0-12.0 % Eosinophils (%) (Auto) 3.8 0.0-7.0 % Basophils (%) (Auto) 0.7 0.0-2.0 % Neutrophils # (Auto) 3.6 1.6-8.6 10 ^3/uL Lymphocytes # (Auto) 2.1 0.4-5.4 10 ^3/uL Monocytes # (Auto) 0.7 0-1.3 10 ^3/uL Eosinophils # (Auto) 0.3 0-0.8 10 ^3/uL Basophils # (Auto) 0 0-0.2 10 ^3/uL Nucleated Red Blood Cells 0.1 % Sodium Level 141 136-145 mmol/L Potassium Level 4.3 3.5-5.1 mmol/L Chloride Level 108 H 98-107 mmol/L Carbon Dioxide Level 25 20-31 mmol/L Anion Gap 8 5-15 Blood Urea Nitrogen Pending Creatinine Pending Glomerular Filtration Rate Calc Pending BUN/Creatinine Ratio Pending Serum Glucose Pending Calcium Level Pending Troponin I High Sensitivity 27 </=34 ng/L Time of 1ST Reevaluation: 01:18 Reevaluation 1ST: Unchanged Patient Education/Counseling: Diagnosis, Treatment, Prognosis Family Education/Counseling: No Family Present Additional Information The following tests were ordered, and results were reviewed by me:EKG -x3, BMP, TROP -x3, XY CHEST Additional Information was gathered from interviewing the following independent historians: EMS I reviewed and agreed with the following test results read by other providers: XY CHEST I discussed treatment and results with medical personnel and: patient Departure 1 Departure Time of Disposition: 01:52 (Patient is well-known to the emergency room and this hospital with a recent very thorough workup within the past week. Patient presents requesting Dilaudid. Patient is low risk for acute coronary syndrome given her recent workup. We will discharge patient home with outpatient follow up) Impression: Primary Impression: Chronic chest pain Disposition: 01 HOME / SELF CARE / HOMELESS Condition: Stable Additional Instructions: You presented today with chest pain. Your workup today was benign including labs, troponin, EKG, chest x-ray. Your pain may be from musculoskeletal strain, acid reflux, anxiety, or many other factors. It is important to follow up with your regular doctor within 1 week. If your symptoms worsen or you have any other concerns please return to the emergency room. Discharged With: Self Critical Care Note Critical Care Time?: No Stability Stability form required: No Heart Score Heart Score: Heart Score Response (Comments) Value History Slightly Suspicious 0 EKG Normal 0 Age >65 2 Risk Factors 1 or 2 risk factors 1 Troponin Normal limit 0 Total 3 I personally scribed for BRANDO SANCHEZ MD ([email or web address]) on 07/29/24 at 01:18. Electronically submitted by Makenzie Mclean ([email or web address]). I personally scribed for BRANDO SANCHEZ MD ([email or web address]) on 07/29/24 at 01:22. Electronically submitted by Makenzie Mclean ([email or web address]). BRANDO SANCHEZ MD Jul 29, 2024 01:18
--- NOTE | 2024-07-29 01:23 | DVH ---
CHEST RADIOGRAPH Indication: chest pain Technique: Single frontal view of the chest was obtained COMPARISON: XY CHEST PORTABLE on DOS: 07/24/24, XY CHEST PORTABLE on DOS: 07/12/24, XY CHEST PORTABLE o n DOS: 06/18/24, XY CHEST PORTABLE on DOS: 05/24/24, XY CHEST PORTABLE on DOS: 05/03/24 FINDINGS: Lines and Tubes: Pacemaker/AICD noted overlying left chest wall. Lungs: Minimal subsegmental atelectasis/scarring in right mid to lower lung, stable compared to the p rior chest x-ray from 07/24/24. Otherwise unremarkable. No pulmonary edema. Pleura: No effusion. No pneumothorax. Cardiomediastinal contours: Mild cardiomegaly. IMPRESSION: No acute abnormality noted.
[2024-07-29 01:47] LABS: Potassium 4.3 mmol/L (3.5-5.1); Sodium 141 mmol/L (136-145)
[2024-07-29 01:48] LABS: Anion Gap 8 (5-15); Carbon Dioxide 25 mmol/L (20-31)
[2024-07-29 01:49] LABS: Calcium 10.3 mg/dL (8.7-10.4); Chloride 108 mmol/L (98-107)
[2024-07-29 01:53] LABS: BUN/Creatinine Ratio 25.8 (10.0-20.0); Glucose 100 mg/dL (74-106)
[2024-07-29 01:54] LABS: Blood Urea Nitrogen 31 mg/dL (9-23)
[2024-07-29 02:15] VITALS: BP 131/79; PULSE 70; RESP 16; TEMP 98.4; O2SAT 99
--- NOTE | 2024-07-29 03:57 | ECG ---
[facility] Test Date: 2024-07-29 Test Time: 00:47:05 Pat Name: MONICA JAMES Department: ED Room: Gender: F Adjudication Specialist: JAIDA : 1945 Requested By: BRANDO SANCHEZ Order Number: [id number] Reading MD: Adair Mijares Measurements Intervals [place] Rate: 64 P: 54 UT: 204 QRS: 246 QRSD: 125 T: 135 QT: 439 QTc: 453 Interpretive Statements Atrial-sensed ventricular-paced rhythm No further analysis attempted due to paced rhythm Baseline wander in lead(s) II Electronically Signed On 08-01-2024 17:49:25 PST by Adair Mijares Please click the below link to view image of tracing.
--- NOTE | 2024-07-29 03:57 | ECG ---
[facility] Test Date: 2024-07-29 Test Time: 01:44:32 Pat Name: MONICA JAMES Department: ED Room: Gender: F Estimator Project Manager: JAIDA : 1945 Requested By: BRANDO SANCHEZ Order Number: [id number] Reading MD: Adair Mijares Measurements Intervals [place] Rate: 73 P: 73 NE: 183 QRS: 244 QRSD: 139 T: 80 QT: 438 QTc: 483 Interpretive Statements Atrial-sensed ventricular-paced rhythm No further analysis attempted due to paced rhythm Baseline wander in lead(s) V3 Electronically Signed On 08-01-2024 17:49:36 PST by Adair Mijares Please click the below link to view image of tracing.
== END 2024-07-29 02:24 | disposition home or self-care (01) ==
LOC: ER 00:42 → EDBD 00:42 → ER 02:16
DX: R07.89 Other chest pain (principal); F41.9 Anxiety disorder, unspecified; I25.10 Atherosclerotic heart disease of native coronary artery without angina pectoris; F32.A Depression, unspecified; E78.5 Hyperlipidemia, unspecified; I11.0 Hypertensive heart disease with heart failure; I50.9 Heart failure, unspecified; J44.9 Chronic obstructive pulmonary disease, unspecified; I25.2 Old myocardial infarction; K21.9 Gastro-esophageal reflux disease without esophagitis; M10.9 Gout, unspecified; Z79.02 Long term (current) use of antithrombotics/antiplatelets; Z79.51 Long term (current) use of inhaled steroids; Z79.82 Long term (current) use of aspirin; Z79.899 Other long term (current) drug therapy; Z90.710 Acquired absence of both cervix and uterus; Z90.49 Acquired absence of other specified parts of digestive tract; Z95.0 Presence of cardiac pacemaker; Z95.1 Presence of aortocoronary bypass graft; Z88.5 Allergy status to narcotic agent; Z88.1 Allergy status to other antibiotic agents
CPT/HCPCS: 36415; 71045; 80048; 84484; 85025; 93005

== ENCOUNTER 2024-09-04 01:39 | Inpatient (IN) | payer OTHER, MEDICAID ==
[2024-09-04] VITALS (12 sets, daily range): BP systolic 93–108; BP diastolic 48–60; PULSE 60–74; RESP 12–20; TEMP 97.6–98.3; O2SAT 95–100
[~2024-09-04] VITALS: Ht 162.6 cm; Wt 73.4 kg
[2024-09-04] MEDS: ASPirin 81 mg TAB PO ONE (02:09)
--- NOTE | 2024-09-04 02:12 | ED.PDOC ---
HPI Comments 79-year-old female who came to the ER by EMS for chest pains. Patient has an extensive cardiac history, including hypertension, coronary artery disease, CHF, COPD, multiple MIs, status post CABG, pacemaker, and cardiac stents. States she was admitted last week at [facility], diagnosed to have another GA, and underwent 2 cardiac stents. Patients states she has been having left sided chest pains since yesterday morning, pressure, constant radiating down her left arm, associated with shortness of breath. States pain is similar to when she had an GA. Chief Complaint: Chest Pain Time Seen by MD: 02:10 Primary Care Provider: HORTENCIA Reviewed Notes: Nurses Notes, Senior Security Engineer Notes Allergies: Coded Allergies: Ceftriaxone (Verified Allergy, Intermediate, generalized rash, 11/08/22) PROGRAM REVIEW DIRECTOR OMEGA MEJIA Hydrocodone (Verified Allergy, Unknown, rash, 05/18/23) tylenol is okay per patient Home Meds Active Scripts Fosfomycin Tromethamine (Fosfomycin Tromethamine) 3 Gm Pow, 3 GM PO DAILY for 3 Days, #3 POW Prov:BHARAT MICHELLE RESIDENT 07/22/24 Spironolactone (Aldactone) 25 Mg Tab, 25 MG PO DAILY for 30 Days, #30 TAB Prov:BHARAT MICHELLE RESIDENT 07/22/24 Oxybutynin Chloride (Oxybutynin Chloride) 5 Mg Tab, 5 MG PO Q8HR for 30 Days, #90 TAB Prov:BHARAT MICHELLE 07/22/24 Atorvastatin Calcium (ATORVASTATIN CALCIUM) 20 Mg Tab, 40 MG PO HS for 30 Days, #60 TAB Prov:BHARAT MICHELLE 07/22/24 Acetaminophen (Acetaminophen) 325 Mg Tab, 650 MG PO TID for 10 Days, #60 TAB Prov:BHARAT MICHELLE RESIDENT 07/22/24 Duloxetine Hydrochloride (Duloxetine Hydrochloride) 30 Mg Cap, 30 MG PO DAILY for 30 Days, #30 CAP Prov:WINSOME GOMEZ MD 04/29/24 Phenazopyridine HCl (Phenazopyridine Hydrochlo) 200 Mg Tab, 200 MG PO TID for 3 Days, #9 TAB Prov:NIRALI MARTINO 04/10/24 Primidone (MYSOLINE TABLET) 50 Mg Tb, 25 MG PO HS for 30 Days, #15 TAB Prov:SALENANIRALI RESIDENT 04/10/24 Clopidogrel Bisulfate (CLOPIDOGREL) 75 Mg Tab, 75 MG PO DAILY for 30 Days, #30 TAB 5 Refills Prov:YENNY FRAIRE MD 11/26/23 Ranolazine (Ranolazine ER) 500 Mg Tab, 500 MG PO BID for 30 Days, #60 TAB 2 Refills Prov:MAGAN RUSS RESIDENT 09/16/23 Sacubitril-Valsartan (Entresto 24-26 mg) 1 Tab Tab, 1 TAB PO BID for 30 Days, #60 TAB 3 Refills Prov:LEANNA BROWN DO 05/22/23 Reported Medications Oxycodone W/ Acetaminophen (Percocet 5/325MG) 1 Tab Tb, 1 TAB PO QID, #120 TAB 01/29/24 Polyethylene Glycol 3350 (Miralax) 17 Gm Pow, 17 GM PO DAILY PRN for FOR CONSTIPATION for 30 Days, #30 01/28/24 Lactobacillus (ACIDOPHILUS) Cap, 1 CAP PO BID for 30 Days, #60 09/05/23 Ipratropium-Albuterol (Ipratropium [place]/Albut) 1 Yuli Yuli, 1 VIAL NEB Q6HPRN PRN for SHORTNESS OF BREATH for 13 Days, #180 09/05/23 Fluticasone-Salmeterol (Fluticasone Propionate/SA 250-50 Mcg/Dose) 1 Aer Aer, 1 PUFF INH BID for 30 Days, #60 09/05/23 Albuterol Sulfate (Albuterol Sulfate Hfa) 108 Mcg/Act Aer, 2 PUFF INH Q4HPRN PRN for dyspnea for 17 Days, #18 09/05/23 Cholecalciferol (VITAMIN D3) 2,000 Unit Tab, 1 TAB PO BID for 30 Days, #60 08/28/23 Multiple Vitamin (Tab-A-Radha) Tab, 1 TAB PO DAILY for 30 Days, #30 08/28/23 Aspirin (Aspir-Low) 81 Mg Tab, 1 TAB PO DAILY for 30 Days, #30 08/28/23 Furosemide (Furosemide) 40 Mg Tab, 1 TAB PO DAILY 08/28/23 Ascorbic Acid (VITAMIN C TABLET) 500 Mg Tb, 1 TAB PO BID for 30 Days, #60 05/18/23 Pantoprazole Sodium Sesquihydr (Pantoprazole Sodium) 40 Mg Tab, 1 TAB PO DAILY 05/18/23 Carvedilol (Carvedilol) 3.125 Mg Tab, 1 TAB PO BID for 30 Days, #60 01/02/23 Fluoxetine HCl (Pmdd) (Fluoxetine HCl) 20 Mg Tab, 20 MG PO DAILY, TAB 05/30/20 Information Source: Patient Mode of Arrival: EMS Severity: Moderate Timing: Hours Duration: Since onset Location: Chest (L) Radiation: Arm (L) Quality: Pressure Onset: With Light Exertion Cardiac Risk Factors: HTN Associated Signs and Symptoms: SOB Review of Systems REVIEW OF SYSTEMS: No fever, no chills, or fatigue HEENT: No sore throat, no earache, no congestion, no neck pain. Cardiac: (+) chest pain. No palpitations. Lungs: (+) shortness of breath, no cough. GI: No nausea, no vomiting, no diarrhea, no constipation, no abdominal pain : No dysuria, frequency, or urgency. No hematuria. Musculoskeletal: No joint pain , no joint swelling, no extremity edema. Skin: No rash, no itching. Neuro: No headache, no dizziness, no weakness Vital Signs Vital Signs Date Time Temp Pulse Resp B/P (MAP) Pulse Ox O2 Delivery O2 Flow Rate FiO2 09/04/24 05:47 97.6 65 14 96/46 (63) 98 97.6 09/04/24 03:55 Nasal Cannula* 3 32 Physical Exam General: Awake, alert and oriented. No acute distress. Skin: Skin in warm, dry and intact. Appropriate color for ethnicity. Nailbeds pink with no cyanosis. HEENT: The head is normocephalic and atraumatic. Conjunctivae are clear without exudates or hemorrhage. Sclera is non-icteric. EOM are intact. No signs of nystagmus. Eyelids are normal in appearance without swelling or lesions. Oral mucosa is pink and moist Neck: The neck is supple with normal range of motion. No JVD. Cardiac: Heart rate and rhythm are normal. No murmurs, gallops, or rubs are auscultated. Respiratory: No signs of respiratory distress. Lung sounds are clear in all lobes bilaterally without rales, rhonchi, or wheezes. Abdominal: Abdomen is soft, non-tender without distention. Bowel sounds are present and normoactive in all four quadrants. Extremities: Upper and lower extremities are atraumatic in appearance without deformity or edema. Neurological: The patient is awake, alert and oriented to person, place, and time with normal speech. Speech is clear. There is no facial asymmetry. Psychiatric: Appropriate mood and affect. Good judgement and insight. No visual or auditory hallucinations. Past Medical History PAST MEDICAL HISTORY: Anemia, Anxiety, Asthma, CAD, CHF, COPD, Depression, GERD, Gout, High Lipids, HTN, Kidney Stones, GA, UTI'S Surgical History: Appendectomy, CABG, Hysterectomy, Pacemaker, PTCA, To nsillectomy CROSSTIE INSPECTOR History: Ovarian Cysts Family History Family History: Reviewed,noncontributory to illness, Unknown Social History Smoker: Non-Smoker Alcohol: Denies ETOH Use Drugs: Denies Drug Use Lives In: Assisted Care EKG EKG : Pulse Rate (adult): 76 Cardiac Rhythm: Paced Was a procedure done? Was a procedure done?: No CP Differential Dx Differential Diagnosis: Angina, Anxiety / Panic Attack Differential Diagnosis: CHF Differential Diagnosis: Angina, Chest Wall Pain, Esophageal reflux/spasm, Gastritis, Myocardial Infarction, Pulmonary Embolus X-Ray, Labs, Meds, VS Vital Signs Date Time Temp Pulse Resp B/P (MAP) Pulse Ox O2 Delivery O2 Flow Rate FiO2 09/04/24 05:47 97.6 65 14 96/46 (63) 98 97.6 09/04/24 04:36 70 14 104/59 09/04/24 04:06 81 18 106/37 09/04/24 04:02 70 09/04/24 04:02 98.0 72 16 106/37 (60) 98 98.0 09/04/24 04:00 80 09/04/24 03:55 70 18 Nasal Cannula* 3 32 09/04/24 02:12 76 09/04/24 01:49 98.7 86 14 114/86 (95) 91 98.7 09/04/24 01:48 74 Lab Test 09/04/24 03:47 09/04/24 02:50 Range/Units Troponin I High Sensitivity 280 *H 263 *H </=34 ng/L Triglycerides Level Pending Cholesterol Level Pending LDL Cholesterol Pending HDL Cholesterol Pending White Blood Count 10.1 4.4-10.8 10^3/uL Red Blood Count 4.17 4.0-5.20 10^6/uL Hemoglobin 12.7 12.2-16.2 g/dL Hematocrit 37.1 36.0-46.0 % Mean Corpuscular Volume 89.1 80.0-100.0 fL Mean Corpuscular Hemoglobin 30.5 28.0-32.0 pg Mean Corpuscular Hemoglobin Concent 34.3 32.0-36.0 g/dL Red Cell Distribution Width 15.6 H 11.8-14.3 % Platelet Count 275 140-450 10^3/uL Mean Platelet Volume 8.2 6.9-10.8 fL Neutrophils (%) (Auto) 63.9 37.0-80.0 % Lymphocytes (%) (Auto) 19.5 10.0-50.0 % Monocytes (%) (Auto) 10.5 0.0-12.0 % Eosinophils (%) (Auto) 5.6 0.0-7.0 % Basophils (%) (Auto) 0.5 0.0-2.0 % Neutrophils # (Auto) 6.5 1.6-8.6 10 ^3/uL Lymphocytes # (Auto) 2.0 0.4-5.4 10 ^3/uL Monocytes # (Auto) 1.1 0-1.3 10 ^3/uL Eosinophils # (Auto) 0.6 0-0.8 10 ^3/uL Basophils # (Auto) 0.1 0-0.2 10 ^3/uL Nucleated Red Blood Cells 0.0 % Sodium Level 142 136-145 mmol/L Potassium Level 4.2 3.5-5.1 mmol/L Chloride Level 111 H 98-107 mmol/L Carbon Dioxide Level 25 20-31 mmol/L Anion Gap 6 5-15 Blood Urea Nitrogen 38 H 9-23 mg/dL Creatinine 1.35 H 0.550-1.02 mg/dL Glomerular Filtration Rate Calc 40 >90 mL/min BUN/Creatinine Ratio 28.1 H 10.0-20.0 Serum Glucose 113 H 74-106 mg/dL Hemoglobin A1c Pending Calcium Level 9.7 8.7-10.4 mg/dL Total Bilirubin 0.6 0.2-1.0 mg/dL Aspartate Amino Transferase (AST) 15 13-40 U/L Alanine Aminotransferase (ALT) 16 7-40 U/L Alkaline Phosphatase 60 46-116 U/L B-Type Natriuretic Peptide 742.92 0-100 pg/mL Total Protein 6.3 5.7-8.2 g/dL Albumin 4.3 3.2-4.8 g/dL Current Medications Medications (Trade) Dose Ordered Sig/Asha Route Start Time Stop Time Status Last Admin Morphine Sulfate 2 mg ONCE ONCE IV 09/04/24 02:00 09/04/24 02:01 DC 09/04/24 04:06 Ondansetron HCl (Zofran) 4 mg ONCE ONCE IV 09/04/24 04:15 09/04/24 04:16 DC 09/04/24 04:13 Time of 1ST Reevaluation: 02:01 Reevaluation 1ST: Unchanged Patient Education/Counseling: Diagnosis, Treatment Family Education/Counseling: No Family Present Departure 1 Departure Time of Disposition: 04:54 Impression: Primary Impression: Chest pain Disposition: ADMITTED INPATIENT Condition: Stable Comments 79-year-old female with presents with 10/10 chest pain radiating to left arm that feels like previous GA. Patient reports she had angioplasty and [facility] last week with 2 new stents placed. Patient has history of coronary artery disease, multiple MIs, history of CABG and PTCA, HFreEF echocardiogram 04/2024 LVEF 15-20%. Biotronik pacemaker. COPD on 4 L home oxygen. EKG showed AV paced rhythm. Troponin elevated however stable. Patient continues to endorse chest pain during the ED observation. Consult placed to cardiology for recommendation on anticoagulation. This with Dr. Felipe. He recommends continue Plavix and aspirin. Continue to trend troponins. No heparin at this time. We will see patient in consult Extensive evaluation was performed in attempt to identify or rule out: (See differential diagnosis section) The following tests were ordered, and results were reviewed by me and discussed with patient: (See diagnostic results section) The following test were independently interpreted by me: EKG, chest x-ray I reviewed and agreed with the following test results read by other providers: Chest Xray I reviewed the following notes from the pt's past medical encounters: N/A Additional information was gathered from interviewing the following independent historians: N/A Discussion of management or test interpretation with external physician/other qualified health pet care attendant: N/A Addressed one or more chronic illnesses with severe exacerbation, progression, or side effects of treatment: Coronary artery disease, chest pain Decision regarding hospitalization or escalation of hospital level of care: Risk and benefits of admission for further treatment of patient's condition was considered. Due to patient's current clinical condition, high risk of decline and poor outcome if discharged and need for further inpatient management and monitoring, patient will be admitted to the hospital. Discussed with patient. Drug therapy requiring intensive monitoring for toxicity: N/A Parenteral controlled substances: IV morphine Decision regarding elective major surgery with identified patient or procedure risk factors: N/A Decision regarding emergency major surgery: N/A Decision not to resuscitate or to de-escalate care because of poor prognosis: N/A Diagnosis or treatment significantly limited by social determinants of health: N/A Critical Care Note Critical Care Time?: Yes (35 min-critical care time only) Stability Stability form required: No Heart Score Heart Score: Heart Score Response (Comments) Value History Moderate Suspicious 1 EKG Repolarization Disturb 1 Age >65 2 Risk Factors >3 or Hx ASHD 2 Troponin Normal limit 0 Total 6 I personally scribed for TAMIKO HASSAN MD ([email or web address]) on 09/04/24 at 02:12. Electronically submitted by Rogelio Rdz ([facility]). TAMIKO HASSAN MD Sep 04, 2024 02:12
--- NOTE | 2024-09-04 02:30 | DVH ---
CHEST RADIOGRAPH Indication: cp Technique: Single frontal view of the chest was obtained COMPARISON: XY CHEST PORTABLE on DOS: 07/29/24, XY CHEST PORTABLE on DOS: 07/24/24, XY CHEST PORTABLE on DOS: 07/12/24, XY CHEST PORTABLE on DOS: 06/18/24, XY CHEST PORTABLE on DOS: 05/24/24 FINDINGS: Lines and Tubes: Permanent pacemaker overlies and obscures the lower left chest with atrial, ventricu lar and coronary sinus wire leads. Lungs: There is poor visualization of the left base which is partially obscured by the pacemaker guero r pack. Pleura: No effusion. No pneumothorax. Cardiomediastinal contours: Unremarkable Bones: The bones are osteopenic. IMPRESSION: 1. No definite acute cardiopulmonary disease. Poor visualization of the left base may be technical.
[2024-09-04 03:19] LABS: Basophils # (auto) 0.1 10 ^3/uL (0-0.2); Basophils % (auto) 0.5 % (0.0-2.0); Eosinophils # (auto) 0.6 10 ^3/uL (0-0.8); Eosinophils % (auto) 5.6 % (0.0-7.0); Hematocrit 37.1 % (36.0-46.0); Hemoglobin 12.7 g/dL (12.2-16.2); Lymphocytes % (auto) 19.5 % (10.0-50.0); Mean Corpuscular Hemoglobin 30.5 pg (28.0-32.0); Mean Corpuscular Hgb Conc. 34.3 g/dL (32.0-36.0); Mean Corpuscular Volume 89.1 fL (80.0-100.0); Monocytes # (auto) 1.1 10 ^3/uL (0-1.3); Monocytes % (auto) 10.5 % (0.0-12.0); Neutrophils # (auto) 6.5 10 ^3/uL (1.6-8.6); Neutrophils % (auto) 63.9 % (37.0-80.0); Platelet Count (auto) 275 10^3/uL (140-450); Red Blood Cells 4.17 10^6/uL (4.0-5.20); Red Cell Distribution Width 15.6 % (11.8-14.3); White Blood Cell 10.1 10^3/uL (4.4-10.8)
[2024-09-04 03:22] LABS: Alanine Aminotransferase 16 U/L (7-40); Albumin 4.3 g/dL (3.2-4.8); Alkaline Phosphatase 60 U/L (46-116); Anion Gap 6 (5-15); Aspartate Aminotransferase 15 U/L (13-40); BUN/Creatinine Ratio 28.1 (10.0-20.0); Calcium 9.7 mg/dL (8.7-10.4); Carbon Dioxide 25 mmol/L (20-31); Potassium 4.2 mmol/L (3.5-5.1); Sodium 142 mmol/L (136-145); Total Protein 6.3 g/dL (5.7-8.2)
[2024-09-04 03:23] LABS: Bilirubin, Total 0.6 mg/dL (0.2-1.0)
[2024-09-04 03:32] LABS: Blood Urea Nitrogen 38 mg/dL (9-23); Chloride 111 mmol/L (98-107); Glucose 113 mg/dL (74-106)
[2024-09-04] MEDS: MORPHINE SULFATE INJ 2 MG/ml SYRG IV ONE (04:06)
[2024-09-04] MEDS: ONDANSETRON HCL 4 MG/2 ML VIAL IV ONE (04:13)
--- NOTE | 2024-09-04 04:53 | ECG ---
[facility] Test Date: 2024-09-04 Test Time: 01:48:13 Pat Name: MONICA JAMES Department: ED Room: 0239T Gender: F Instructor Adjunct Pharmacy Technician: : 1945 Requested By: TAMIKO HASSAN Order Number: [id number] Reading MD: Adair Mijares Measurements Intervals [place] Rate: 74 P: 42 NH: 173 QRS: 250 QRSD: 129 T: 100 QT: 431 QTc: 479 Interpretive Statements Atrial-sensed ventricular-paced rhythm No further analysis attempted due to paced rhythm Electronically Signed On 09-09-2024 20:42:12 PDT by Adair Mijares Please click the below link to view image of tracing.
--- NOTE | 2024-09-04 04:54 | ECG ---
[facility] Test Date: 2024-09-04 Test Time: 04:02:59 Pat Name: MONICA JAMES Department: ED Room: 0239T Gender: F Pockets And Pieces Necktie Operator: : 1945 Requested By: TAMIKO HASSAN Order Number: [id number] Reading MD: Adair Mijares Measurements Intervals [place] Rate: 70 P: 63 MD: 146 QRS: 234 QRSD: 154 T: 71 QT: 491 QTc: 530 Interpretive Statements Atrial-ventricular dual-paced rhythm No further analysis attempted due to paced rhythm Electronically Signed On 09-09-2024 20:44:04 PDT by Adair Mijares Please click the below link to view image of tracing.
--- NOTE | 2024-09-04 05:57 | DVHHPRES ---
History of Present Illness Resident Creating Document: BHARAT MICHELLE History of Present Illness Niya Scott is a 79 year old female patient who presents to ED with chief complaint of nonradiating retrosternal stabbing chest pain which started during the a.m. in functional class IV, intensity 10/10, which worsens with cough and reproduces with palpation, associated with abdominal pain specially in right lower quadrant of abdomen. Patient recently diagnosed with new MA (18 per patient) completed on 09/03/2024 completed coronary angiography with placement of two GUME via right groin access, was discharge today but continued feeling chest discomfort. In ED completed EKG ventricular paced EKG, 1st EKG showed RBBB and 2nd EKG LBBB, troponin positive time (263-280). Denies dyspnea, nausea, vomiting, diarrhea, bleeding, palpitations, syncope and motor or sensitive deficits. 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 COPD with requirement of home oxygen with nasal cannula at 2-3 L/min with multiple admissions due to COPD exacerbation, GERD. Non-obstructing kidney stones, treated with morphine, which has been discontinued in assisted living facility, opioid seeking behavior. Surgical history: Hysterectomy, placement of GARNETT MACHINE OPERATOR HELPER-D, CABG, PCI, tonsillectomy, appendicectomy Family history: Non-contributory Social history: Lives in assisted living center ([facility] Ex-smoker (50 pack year history). Denies current tobacco, alcohol and other drug abuse. Allergies: Ceftriaxone, Codeine, hydrocodone Home medication: Albuterol as needed, amitriptyline 10 mg p.o. daily, vitamin C 500 mg p.o. twice daily, aspirin 81 mg p.o. daily, atorvastatin 20 mg p.o. daily, bisacodyl 10 mg p.o. as needed, carisoprodol 1 tablet as needed, carvedilol 3.125 mg p.o. twice daily, vitamin D 3 2000 units p.o. twice daily, clonazepam as needed, clopidogrel 75 mg p.o. daily, fluoxetine 20 mg p.o. daily, fluticasone-salmeterol 1 puff inhaled twice daily, furosemide 40 mg p.o. daily, ipratropium albuterol as needed, lactobacillus 175 mg p.o. twice daily, magnesium 400 mg p.o. daily, morphine p.o. (was discontinued around a month ago), multivitamin 1 tablet p.o. daily, ranolazine 500 mg p.o. twice daily, Entresto 1 tablet p.o. twice daily, pantoprazole 40 mg p.o. daily Patient seen and examined at bedside. Currently still complains of chest and abdominal pain. Indicated morphine. Ordered abdomen and pelvis CT to rule out peritoneal bleed Past Medical History Per HPI Past Surgical History Per HPI Family History Per HPI Past Social History Per HPI Review of Systems Review of Systems Per HPI Allergies: Coded Allergies: Ceftriaxone (Verified Allergy, Intermediate, generalized rash, 11/08/22) [employer]IA Hydrocodone (Verified Allergy, Unknown, rash, 05/18/23) tylenol is okay per patient Exam Vital Signs Vital Signs Date Time Temp Pulse Resp B/P (MAP) Pulse Ox O2 Delivery O2 Flow Rate FiO2 09/04/24 05:47 97.6 65 14 96/46 (63) 98 97.6 09/04/24 03:55 Nasal Cannula* 3 32 Exam Patient lying in bed, in no acute distress General: Lucid, afebrile, mucosae are moist Cardiovascular: Normal S1 and S2. No murmurs, gallops or rubs Respiratory: Normal ventilation mechanics. Clear lung sounds on auscultation Abdomen: Soft, nontender, no organomegaly, normal bowel sounds MSK/skin: Mobilizes 4 limbs. Skin is dry and cool. Reduced bilateral pedal and DAPHNIE pulses. Hematoma on RLQ Neurological: Oriented in 3 spheres. No motor no sensitive deficits. Pupils are isocoric and reactive Labs/Xrays Labs Test 09/04/24 03:47 09/04/24 02:50 Range/Units Troponin I High Sensitivity 280 *H </=34 ng/L White Blood Count 10.1 4.4-10.8 10^3/uL Red Blood Count 4.17 4.0-5.20 10^6/uL Hemoglobin 12.7 12.2-16.2 g/dL Hematocrit 37.1 36.0-46.0 % Mean Corpuscular Volume 89.1 80.0-100.0 fL Mean Corpuscular Hemoglobin 30.5 28.0-32.0 pg Mean Corpuscular Hemoglobin Concent 34.3 32.0-36.0 g/dL Red Cell Distribution Width 15.6 H 11.8-14.3 % Platelet Count 275 140-450 10^3/uL Mean Platelet Volume 8.2 6.9-10.8 fL Neutrophils (%) (Auto) 63.9 37.0-80.0 % Lymphocytes (%) (Auto) 19.5 10.0-50.0 % Monocytes (%) (Auto) 10.5 0.0-12.0 % Eosinophils (%) (Auto) 5.6 0.0-7.0 % Basophils (%) (Auto) 0.5 0.0-2.0 % Neutrophils # (Auto) 6.5 1.6-8.6 10 ^3/uL Lymphocytes # (Auto) 2.0 0.4-5.4 10 ^3/uL Monocytes # (Auto) 1.1 0-1.3 10 ^3/uL Eosinophils # (Auto) 0.6 0-0.8 10 ^3/uL Basophils # (Auto) 0.1 0-0.2 10 ^3/uL Nucleated Red Blood Cells 0.0 % Sodium Level 142 136-145 mmol/L Potassium Level 4.2 3.5-5.1 mmol/L Chloride Level 111 H 98-107 mmol/L Carbon Dioxide Level 25 20-31 mmol/L Anion Gap 6 5-15 Blood Urea Nitrogen 38 H 9-23 mg/dL Creatinine 1.35 H 0.550-1.02 mg/dL Glomerular Filtration Rate Calc 40 >90 mL/min BUN/Creatinine Ratio 28.1 H 10.0-20.0 Serum Glucose 113 H 74-106 mg/dL Calcium Level 9.7 8.7-10.4 mg/dL Total Bilirubin 0.6 0.2-1.0 mg/dL Aspartate Amino Transferase (AST) 15 13-40 U/L Alanine Aminotransferase (ALT) 16 7-40 U/L Alkaline Phosphatase 60 46-116 U/L B-Type Natriuretic Peptide 742.92 0-100 pg/mL Total Protein 6.3 5.7-8.2 g/dL Albumin 4.3 3.2-4.8 g/dL Assessment/Plan Assessment/Plan Assessment: NSTEMI probable type II Recent MA status post PCI with two GUME Rule out peritoneal hematoma CKD Chronic Respiratory failure secondary to COPD and HFrEF - on home oxygen at 2 liters/minute COPD no exacerbation Chronic systolic congestive heart failure (HFrEF, LVEF 20%) - Status post quadr uple vessel CABG, PCI and GARNETT MACH[employer] OPERATOR HELPER-D History of coronary artery disease - status post CABG and PCI History of nonobstructive kidney stones symptomatic by chronic back pain Opioid seeking behavior History of GERD Plan: Continue with DAPT, optimize pain treatment EKG shows Ventricular paced leads, 1st EKG showed LBBB and 2nd EKG showed RBBB (alternating blocks). Troponin x2 positive (263 and 280). Ordered pending 3rd troponin. Ordered Abdomen and pelvis CT to rule out peritoneal hematoma Optimize breathing treatments Goals of care discussed with patient for over 18 minutes: Full code status Discussed plan with Dr. Greenwood, patient and nurses: Continue with DAPT, ordered Abdomen and pelvis CT, pending. Patient has poor prognosis Plan discussed with: Patient, Other (Nurses) My Orders Orders - BHARAT MCIHELLE RESIDENT Procedure Category Date Status Time Admit ADMIT 09/04/24 Transmitted 05:51 Code Status CODE 09/04/24 Transmitted 05:51 Review Orders With AME 09/04/24 Transmitted Adm. 05:51 Npo (Nothing By DIET 09/04/24 Transmitted Mouth) Diet Breakfast Notify Of Changes [facility] 09/04/24 Transmitted From Base 05:51 Advance Directive [facility] 09/04/24 Transmitted 05:51 Echo 2d Mode Cardiac US 09/04/24 Transmitted DOP 05:51 Lipid Panel LAB 09/04/24 Transmitted 05:51 Patient Condition ORDERS 09/04/24 Transmitted 05:51 Allergies [facility] 09/04/24 Transmitted 05:51 Ondansetron Hcl PHA 09/04/24 Transmitted (Zofran) 06:00 Drug Screen LAB 09/04/24 Transmitted 05:51 Hemoglobin A1c LAB 09/04/24 Transmitted 05:51 Nitroglycerin PHA 09/04/24 Transmitted Sublingual (Ntrostat 06:00 Morphine Sulfate PHA 09/04/24 Transmitted Injection 06:00 Oxygen By Nasal RT 09/04/24 Transmitted Cannula 05:51 Stat Ekg For Chest AME 09/04/24 Transmitted Pain 05:51 Notify Of Changes [facility] 09/04/24 Transmitted From Base 05:51 Automation Design Engineer For [facility] 09/04/24 Transmitted 24 Hours 05:51 Emergency Dysrhythmia [facility] 09/04/24 Transmitted Protocol 05:51 Rhythm Strips Once [facility] 09/04/24 Transmitted Every Shift 05:51 Acetaminophen Tablet [facility] 09/04/24 Transmitted (Tylenol Tablet) 06:00 Albuterol Inhaler [facility] 09/04/24 Transmitted (Ventolin Hfa) 06:00 Ascorbic Acid Tablet [facility] 09/04/24 Transmitted (Vitamin C Tablet) 10:00 Aspirin Enteric PHA 09/04/24 Transmitted Coated Tablet 10:00 Atorvastatin (Lipitor) [facility] 09/04/24 Transmitted 22:00 Carvedilol Tablet [facility] 09/04/24 Transmitted (Coreg Tablet) 10:00 Clopidogrel Bisulfate [facility] 09/04/24 Transmitted (Plavix) 10:00 Duloxetine Hcl [facility] 09/04/24 Transmitted Capsule (Cymbalta 10:00 Furosemide Tablet [facility] 09/04/24 Transmitted (Lasix Tablet) 10:00 Multiple Vitamin [facility] 09/04/24 Transmitted Tablet (Mvi Tab) 10:00 Oxybutynin Chloride [facility] 09/04/24 Transmitted Tablet (Ditropan Tab 06:00 Oxycodone W/ Acet [facility] 09/04/24 Transmitted 5/325mg Tab (Percocet 06:00 Pantoprazole Tablet [facility] 09/04/24 Transmitted (Protonix Tablet) 10:00 Polyethylene Glycol [facility] 09/04/24 Transmitted 17g Powder (Miralax 06:00 Ranolazine (Ranexa Er) [facility] 09/04/24 Transmitted 10:00 Sacubitril-Valsartan [facility] 09/04/24 Transmitted (Entresto 24-26 Mg 10:00 Spironolactone [facility] 09/04/24 Transmitted (Aldactone) 10:00 (Nf) Cholecalciferol [facility] 09/04/24 Transmitted (Vitamin D3) 10:00 (NF) [facility] 09/04/24 Transmitted Fluticasone-Salmeterol 10:00 (NF) [facility] 09/04/24 Transmitted Ipratropium-Albuterol 06:00 Date of Service: Sep 04, 2024 Billing Provider: ANGELY GREENWOOD MD Common Visit Codes: [id number] INP/OBS CARE (HIGH) BHARAT MICHELLE RESIDENT Sep 04, 2024 05:57 ANGELY GREENWOOD MD Sep 04, 2024 19:34
[2024-09-04] MEDS ORDERED: IPRATROPIUM ALBUTEROL NEB PRN (06:00)
[2024-09-04] MEDS ORDERED: ALBUTEROL SULF HFA 90MCG INH 200DOSE IN PRN (06:00)
[2024-09-04] MEDS: OXYCODONE W/ ACETAMINOPHEN 5/325MG TABLET PO SCH (06:00)
[2024-09-04] MEDS: ACETAMINOPHEN 325 MG TAB PO SCH (06:00)
[2024-09-04] MEDS ORDERED: NITROGLYCERIN 0.4 MG SL TAB SL PRN (06:00)
[2024-09-04] MEDS ORDERED: POLYETHYLENE GLYCOL 17 GM PWDR PO PRN (06:00)
[2024-09-04] MEDS: MORPHINE SULFATE INJ 2 MG/ml SYRG IV PRN ×2 (06:27→21:43)
[2024-09-04] MEDS: OXYBUTYNIN CHL 5 MG TAB PO SCH (06:28)
--- NOTE | 2024-09-04 07:15 | DVH ---
EXAM: CT Abdomen and Pelvis Without Intravenous Contrast CLINICAL INDICATION: Abdominal pain post PCI, right femoral access TECHNIQUE: Axial computed tomography images of the abdomen and pelvis without intravenous contrast. This CT exam was performed using one or more of the following dose reduction techniques: automated exposure control, adjustment of the mA and/or kV according to patient size, and/or use of iterative r econstruction technique. CONTRAST: RADIATION DOSE: CTDIvol = 9.38 mGy, DLP = 501.94 mGy-cm COMPARISON: CT CT AB PEL WO CON-NO ORAL OR IV on DOS: 07/20/24, CT CT AB PEL WO CON-NO ORAL OR IV on DOS: 04/29/24, CT CT AB PEL WO CON-NO ORAL OR IV on DOS: 03/20/24, CT CT AB PEL WO CON-NO ORAL OR IV on DOS: 03/02/24, CT CT AB PEL WO CON-NO ORAL OR IV on DOS: 02/15/24 FINDINGS: LUNG BASES: Partially visualized lung emphysema. No consolidation. MEDIASTINUM: Small esophageal hiatal hernia. ABDOMEN: LIVER: Hepatomegaly with fatty infiltration. GALLBLADDER AND BILE DUCTS: Unremarkable. No calcified stones. No ductal dilation. PANCREAS: Unremarkable. No ductal dilation. SPLEEN: Unremarkable. No splenomegaly. ADRENALS: Unremarkable. No mass. KIDNEYS AND URETERS: Punctate left nephrolithiasis without hydronephrosis. Left renal cysts. STOMACH AND BOWEL: Fecal retention in the colon consistent with constipation. No obstruction. No mucosal thickening. PELVIS: APPENDIX: No findings to suggest acute appendicitis. BLADDER: Unremarkable. No stones. REPRODUCTIVE: Unremarkable as visualized. ABDOMEN and PELVIS: INTRAPERITONEAL SPACE: Unremarkable. No free air. No significant fluid collection. BONES/JOINTS: Degenerative disc disease throughout the lumbar spine. Degenerative facet arthropath y throughout the lumbar spine, most prominent in the lower lumbar spine. No acute fracture. No disl ocation. SOFT TISSUES: Umbilical hernia containing fat. No hematoma of the groins, bilaterally. VASCULATURE: Scattered calcified atherosclerotic disease of aorta. No abdominal aortic aneurysm. LYMPH NODES: Unremarkable. No enlarged lymph nodes. OTHER FINDINGS: . . IMPRESSION: 1. No hematoma of the groins, bilaterally. 2. Small esophageal hiatal hernia. 3. Hepatomegaly with fatty infiltration. 4. Punctate left nephrolithiasis without hydronephrosis. 5. Fecal retention in the colon consistent with constipation. 6. Umbilical hernia containing fat. 7. Degenerative changes lumbar spine as described.
[2024-09-04] MEDS: ALBUTEROL SULF 2.5 MG/0.5ML(0.5%) NEB SOLN NEB PRN (07:16)
[2024-09-04] MEDS: IPRATROPIUM BROM 0.5 MG/2.5ML INH SOL NEB PRN (07:16)
[2024-09-04 07:19] LABS: Basophils # (auto) 0.1 10 ^3/uL (0-0.2); Basophils % (auto) 1.1 % (0.0-2.0); Eosinophils # (auto) 0.6 10 ^3/uL (0-0.8); Eosinophils % (auto) 6.1 % (0.0-7.0); Hematocrit 39.2 % (36.0-46.0); Hemoglobin 12.9 g/dL (12.2-16.2); Lymphocytes # (auto) 1.9 10 ^3/uL (0.4-5.4); Lymphocytes % (auto) 20.2 % (10.0-50.0); Mean Corpuscular Volume 90.8 fL (80.0-100.0); Monocytes # (auto) 1.1 10 ^3/uL (0-1.3); Monocytes % (auto) 11.8 % (0.0-12.0); Neutrophils # (auto) 5.8 10 ^3/uL (1.6-8.6); Neutrophils % (auto) 60.8 % (37.0-80.0); Nucleated Red Blood Cells % 0.1 %; Platelet Count (auto) 256 10^3/uL (140-450); Red Blood Cells 4.32 10^6/uL (4.0-5.20); White Blood Cell 9.5 10^3/uL (4.4-10.8)
[2024-09-04 07:27] LABS: Alanine Aminotransferase 17 U/L (7-40); Albumin 4.2 g/dL (3.2-4.8); Alkaline Phosphatase 60 U/L (46-116); Anion Gap 6 (5-15); Aspartate Aminotransferase 19 U/L (13-40); BUN/Creatinine Ratio 30.5 (10.0-20.0); Bilirubin, Total 0.7 mg/dL (0.2-1.0); Calcium 9.7 mg/dL (8.7-10.4); Carbon Dioxide 25 mmol/L (20-31); Glucose 92 mg/dL (74-106); Potassium 4.6 mmol/L (3.5-5.1); Sodium 142 mmol/L (136-145); Total Protein 5.9 g/dL (5.7-8.2)
[2024-09-04 07:30] LABS: INR 1.03 (0.9-1.15); Partial Thromboplastin Time 26.5 SEC (24.5-34.5); Prothrombin Time 10.9 sec (9.3-11.8)
[2024-09-04 07:32] LABS: Blood Urea Nitrogen 39 mg/dL (9-23); Chloride 111 mmol/L (98-107)
[2024-09-04 07:35] LABS: LDL Cholesterol 98 mg/dL (< 100)
[2024-09-04 07:36] LABS: Cholesterol 176 mg/dL (< 200); HDL Cholesterol 50 mg/dL (40-59)
[2024-09-04 07:38] LABS: Triglycerides 214 mg/dL (< 150)
--- NOTE | 2024-09-04 08:32 | DVHINCON2 ---
Date of service: Sep 04, 2024 History of Present Illness HPI Patient is a 79-year-old female who presented with abdominal pain/chest discomfort. Cardiology was involved for cardiac aspects of care. Patient is known to our practice from before. She was recently [facility] and had cardiac catheterization/PCI to LAD. At the time of evaluation, denies chest pains. Right groin access site for left heart catheterization in early August looks acceptable with no side for hematoma. Home Meds Active Scripts Fosfomycin Tromethamine (Fosfomycin Tromethamine) 3 Gm Pow, 3 GM PO DAILY for 3 Days, #3 POW Prov:BHARAT MICHELLE 07/22/24 Spironolactone (Aldactone) 25 Mg Tab, 25 MG PO DAILY for 30 Days, #30 TAB Prov:BHARAT MICHELLE 07/22/24 Oxybutynin Chloride (Oxybutynin Chloride) 5 Mg Tab, 5 MG PO Q8HR for 30 Days, #90 TAB Prov:BHARAT MICHELLE 07/22/24 Atorvastatin Calcium (ATORVASTATIN CALCIUM) 20 Mg Tab, 40 MG PO HS for 30 Days, #60 TAB Prov:BHARAT MICHELLE 07/22/24 Acetaminophen (Acetaminophen) 325 Mg Tab, 650 MG PO TID for 10 Days, #60 TAB Prov:BHARAT MICHELLE 07/22/24 Duloxetine Hydrochloride (Duloxetine Hydrochloride) 30 Mg Cap, 30 MG PO DAILY for 30 Days, #30 CAP Prov:WINSOME GOMEZ MD 04/29/24 Phenazopyridine HCl (Phenazopyridine Hydrochlo) 200 Mg Tab, 200 MG PO TID for 3 Days, #9 TAB Prov:NIRALI MARTINO 04/10/24 Primidone (MYSOLINE TABLET) 50 Mg Tb, 25 MG PO HS for 30 Days, #15 TAB Prov:NIRALI MARTINO RESIDENT 04/10/24 Clopidogrel Bisulfate (CLOPIDOGREL) 75 Mg Tab, 75 MG PO DAILY for 30 Days, #30 TAB 5 Refills Prov:YENNY FRAIRE MD 11/26/23 Ranolazine (Ranolazine ER) 500 Mg Tab, 500 MG PO BID for 30 Days, #60 TAB 2 Refills Prov:MAGAN RUSS 09/16/23 Sacubitril-Valsartan (Entresto 24-26 mg) 1 Tab Tab, 1 TAB PO BID for 30 Days, #60 TAB 3 Refills Prov:LEANNA BROWN DO 05/22/23 Reported Medications Oxycodone W/ Acetaminophen (Percocet 5/325MG) 1 Tab Tb, 1 TAB PO QID, #120 TAB 01/29/24 Polyethylene Glycol 3350 (Miralax) 17 Gm Pow, 17 GM PO DAILY PRN for FOR CONSTIPATION for 30 Days, #30 01/28/24 Lactobacillus (ACIDOPHILUS) Cap, 1 CAP PO BID for 30 Days, #60 09/05/23 Ipratropium-Albuterol (Ipratropium [place]/Albut) 1 Yuli Yuli, 1 VIAL NEB Q6HPRN PRN for SHORTNESS OF BREATH for 13 Days, #180 09/05/23 Fluticasone-Salmeterol (Fluticasone Propionate/SA 250-50 Mcg/Dose) 1 Aer Aer, 1 PUFF INH BID for 30 Days, #60 09/05/23 Albuterol Sulfate (Albuterol Sulfate Hfa) 108 Mcg/Act Aer, 2 PUFF INH Q4HPRN PRN for dyspnea for 17 Days, #18 09/05/23 Cholecalciferol (VITAMIN D3) 2,000 Unit Tab, 1 TAB PO BID for 30 Days, #60 08/28/23 Multiple Vitamin (Tab-A-Radha) Tab, 1 TAB PO DAILY for 30 Days, #30 08/28/23 Aspirin (Aspir-Low) 81 Mg Tab, 1 TAB PO DAILY for 30 Days, #30 08/28/23 Furosemide (Furosemide) 40 Mg Tab, 1 TAB PO DAILY 08/28/23 Ascorbic Acid (VITAMIN C TABLET) 500 Mg Tb, 1 TAB PO BID for 30 Days, #60 05/18/23 Pantoprazole Sodium Sesquihydr (Pantoprazole Sodium) 40 Mg Tab, 1 TAB PO DAILY 05/18/23 Carvedilol (Carvedilol) 3.125 Mg Tab, 1 TAB PO BID for 30 Days, #60 01/02/23 Fluoxetine HCl (Pmdd) (Fluoxetine HCl) 20 Mg Tab, 20 MG PO DAILY, TAB 05/30/20 Past Medical History Others Past medical history includes hypertension, hyperlipidemia, coronary artery disease, history of CABG (2010), systolic heart failure, ischemic cardiomyopathy, gout, kidney stone, s/p ESWL, frequent UTI, history of CVA, Diverticulosis, COPD, s/p COVID, depression, Anxiety, GERD, history of appendectomy/hysterectomy/tonsillectomy, and history of BiV ICD (Biotronik) implantation. She is chronically wheelchair-bound. She was previously in hospice for heart failure. She is allergic to codeine. She quit smoking years ago. She is DNR. She also has diagnosis of parkinsonism. Patient Family History: Cardiovascular disease G8 MOTHER, Onset:Unknown Coronary artery disease G8 MOTHER, Onset:Unknown FH: diabetes mellitus G8 MOTHER, Onset:Unknown FH: heart disease G8 MOTHER, Onset:Unknown FH: hypertension G8 MOTHER, Onset:Unknown FH: lupus 19 CHILD FH: myocardial infarction G8 MOTHER, Onset:Unknown Family history: Cardiovascular disease G8 MOTHER, Onset:Unknown G8 FATHER, Onset:Unknown Glaucoma G8 MOTHER, Onset:Unknown Smoker: No Hx (Negative) Alocohol: None Lives with: Halfway Review of Systems Constitutional: No symptom reported Ears, Nose, & Throat: No symptom reported Pulmonary/Respiratory: Cough, Pleuritic Chest Pain Gastrointestinal: Abdominal Pain Genitourinary: Dysuria All Other Systems 14 point review of system performed. Relevant findings as per above and HPI. Otherwise negative. H&P Exam Vital Signs Vital Signs Date Time Temp Pulse Resp B/P (MAP) Pulse Ox O2 Delivery O2 Flow Rate FiO2 09/04/24 08:18 97.6 70 12 93/55 97 2.0 28 97.6 09/04/24 07:16 Nasal Cannula General Appeara: Well developed, Normal Appearance Head Exam: Normal inspection Eye Exam: bilateral eye PERRL Mouth: Normal Inspection Pulmonary/Respiratory: Rhonci Cardiovascular/Chest: Regular rate, Systolic murmur Peripheral Pulses: 2+ carotid (R), 2+ carotid (L), 2+ femoral (R), 2+ femoral (L), 2+ Radial (R), 2+ Radial (L) Abdominal Exam: Normal bowel sounds Neuro/Mental St: Alert, Oriented Appearance: Appropriate appearance Eye contact/ Speech: Cooperative Labs/Xrays Labs Test 09/04/24 06:10 09/04/24 03:47 09/04/24 02:50 Range/Units White Blood Count 9.5 4.4-10.8 10^3/uL Red Blood Count 4.32 4.0-5.20 10^6/uL Hemoglobin 12.9 12.2-16.2 g/dL Hematocrit 39.2 36.0-46.0 % Mean Corpuscular Volume 90.8 80.0-100.0 fL Mean Corpuscular Hemoglobin 30.0 28.0-32.0 pg Mean Corpuscular Hemoglobin Concent 33.0 32.0-36.0 g/dL Red Cell Distribution Width 16.0 H 11.8-14.3 % Platelet Count 256 140-450 10^3/uL Mean Platelet Volume 8.3 6.9-10.8 fL Neutrophils (%) (Auto) 60.8 37.0-80.0 % Lymphocytes (%) (Auto) 20.2 10.0-50.0 % Monocytes (%) (Auto) 11.8 0.0-12.0 % Eosinophils (%) (Auto) 6.1 0.0-7.0 % Basophils (%) (Auto) 1.1 0.0-2.0 % Neutrophils # (Auto) 5.8 1.6-8.6 10 ^3/uL Lymphocytes # (Auto) 1.9 0.4-5.4 10 ^3/uL Monocytes # (Auto) 1.1 0-1.3 10 ^3/uL Eosinophils # (Auto) 0.6 0-0.8 10 ^3/uL Basophils # (Auto) 0.1 0-0.2 10 ^3/uL Nucleated Red Blood Cells 0.1 % Prothrombin Time 10.9 9.3-11.8 sec Prothrombin Time INR 1.03 0.9-1.15 Activated Partial Thromboplast Time 26.5 24.5-34.5 SEC Sodium Level 142 136-145 mmol/L Potassium Level 4.6 3.5-5.1 mmol/L Chloride Level 111 H 98-107 mmol/L Carbon Dioxide Level 25 20-31 mmol/L Anion Gap 6 5-15 Blood Urea Nitrogen 39 H 9-23 mg/dL Creatinine 1.28 H 0.550-1.02 mg/dL Glomerular Filtration Rate Calc 42 >90 mL/min BUN/Creatinine Ratio 30.5 H 10.0-20.0 Serum Glucose 92 74-106 mg/dL Calcium Level 9.7 8.7-10.4 mg/dL Total Bilirubin 0.7 0.2-1.0 mg/dL Aspartate Amino Transferase (AST) 19 13-40 U/L Alanine Aminotransferase (ALT) 17 7-40 U/L Alkaline Phosphatase 60 46-116 U/L Troponin I High Sensitivity 213 *H </=34 ng/L Total Protein 5.9 5.7-8.2 g/dL Albumin 4.2 3.2-4.8 g/dL Thyroid Stimulating Hormone (TSH) 3.49 0.55-4.78 uIU/mL Triglycerides Level 214 H < 150 mg/dL Cholesterol Level 176 < 200 mg/dL LDL Cholesterol 98 < 100 mg/dL HDL Cholesterol 50 40-59 mg/dL Hemoglobin A1c 5.3 <5.7 % A1C B-Type Natriuretic Peptide 742.92 0-100 pg/mL Assessment/Plan Plan Patient is a 79-year-old female who presented with abdominal pain/chest discomfort. Cardiology was involved for cardiac aspects of care. Patient is known to our practice from before. She was recently [facility] and had cardiac catheterization/PCI to LAD. At the time of evaluation, denies chest pains. Right groin access site for left heart catheterization in early August looks acceptable with no side for hematoma. Patient has poor baseline functional capacity. Does have old history of multiple cardiac problems. She likes her pain medications. Lying comfortably flat in bed, no JVD, pink and wet mucosa, no carotid bruit, no goiter, lungs: Not using accessory muscles of breathing, lungs reveal scattered rhonchi, cardiac: Regular regular, no thrill/gallop, 2+murmur in apex, abdomen: Soft, no hepatomegaly, some suprapubic and upper epigastric tenderness is positive, no rebound tenderness, extremities: No edema, dorsalis pedis is 2+ bilateral. Right femoral/groin area with no hematoma. Past medical history includes hypertension, hyperlipidemia, coronary artery disease, history of CABG (2010), systolic heart failure, ischemic cardiomyopathy, gout, kidney stone, s/p ESWL, frequent UTI, history of CVA, Diverticulosis, COPD, s/p COVID, depression, Anxiety, GERD, history of appendectomy/hysterectomy/tonsillectomy, and history of BiV ICD (Biotronik) implantation. She is chronically wheelchair-bound. She was previously in hospice for heart failure. She is allergic to codeine. She quit smoking years ago. She is DNR. She also has diagnosis of parkinsonism. Cardiac catheterization of August 26, 2024 (performed in [facility]) revealed triple-vessel chitina coronary artery disease. POLICY WRITER of obtuse marginal. POLICY WRITER of RCA. Lad with 75% lesion and status post drug-eluting stent deployment. It is of note that there is patent SVG to obtuse marginal and also patent SVG to RCA. Cardiac catheterization of September 2020 revealed ejection fraction of 20%, POLICY WRITER of SVG to diagonal, patent TAN, patent SVG to OM, patent SVG to PDA and POLICY WRITER of RCA. Echocardiogram of August 25, 2024 (performed in [facility]) for PE old ejection fraction of 20% Echocardiogram of reported: LV EF of 15-20%, biatrial enlargement, pacing wire in the right-sided chambers. Echocardiogram of November 22, 2023 revealed: Dilated left ventricle, LVEF of 10%, pacing wire and right-sided chambers, mild mitral regurgitation. Echocardiogram of August 28, 2023 revealed: Dilated left ventricle with significantly reduced systolic function. LVEF of 20%. Elevated LVEDP, dilated four chambers. Pacing wire was seen in right-sided chamber. [id number] MR. Echocardiogram of January 03, 2023 revealed ejection fraction of 20 to 25% and mild left ventricular enlargement Echocardiogram of March 25, 2023 (performed in the office) revealed four- chamber dilatation, LVEF of 20 to 25%, mild to moderate MR, mild TR, trace pulmonary valve insufficiency and right ventricular systolic pressure of 35 mmHg Echocardiogram of March 21, 2022 revealed ejection fraction of around 20%, mild MR/TR Echocardiogram of February 17, 2021 revealed dilated LV, LVEF around 25%, severe diffuse hypokinesis, increased LVEDP, dilated left and right atria, mild to moderate MR, mild TR. Echocardiogram of December 30, 2020 reported ejection fraction less than 20% and dilated left atrium. Echocardiogram of August 2020 revealed ejection fraction less than 25%, right atrial enlargement, left atrial enlargement and moderate MR. Crampin.35 Potassium: 4.2 BNP: 742.99 Troponin (high sensitive): 263 - 280 - 213 Chest x-ray revealed: IMPRESSION: 1. No definite acute cardiopulmonary disease. Poor visualization of the left base may be technical. Abdomen and pelvis CT scan revealed: IMPRESSION: 1. No hematoma of the groins, bilaterally. 2. Small esophageal hiatal hernia. 3. Hepatomegaly with fatty infiltration. 4. Punctate left nephrolithiasis without hydronephrosis. 5. Fecal retention in the colon consistent with constipation. 6. Umbilical hernia containing fat. 7. Degenerative changes lumbar spine as described. EKG shows a sensed, V paced rhythm Tele shows sinus rhythm, V paced Patient is a 79-year-old female we will came through with atypical chest discomfort/lower abdominal pain. Does have baseline history of elevated chronic troponin. Presentation is not considered acute coronary syndrome. Did have recent PCI in other facility. To be kept on aspirin/Plavix. Presentation questions URI/bronchitis/COPD exacerbation. Does have baseline history of ischemic/systolic heart failure which at this point is considered compensated. She is DNR. At this point no ischemic work-up is indicated. Chest pain, atypical Bronchitis/URI COPD exacerbation Ischemic cardiomyopathy, history of Coronary artery disease, status post CABG Status post PCI Diverticular disease Renal calculi Emphysema Kidney stone, history of Coronary artery disease, SP CABG GERD Hypertension Hyperlipidemia Gout Constipation UTI Cardiac suggestion for management: Manage on telemetry Follow-up electrolytes and kidney function tests and correct abnormalities No indication for ischemic work up at this point Continue Aspirin/Plavix Management of URI/bronchitis/COPD exacerbation as per primary team/pulmonology. Thank you for consultation Further evaluation and management depends on the above and clinical course A total of 75 minutes was spent reviewing the patient record, examining the patient, making a diagnostic and therapeutic plan, discussing this plan with medical personnel, following up on diagnostic studies and following the patient for clinical stability excluding any and all procedures. At least 50% of this time was spent in direct, [id number] contact. Thank you for allowing me to participate in this patient's care. Further recommendations will depend on patient's clinical course. Please do not hesitate to contact me if you have any questions or concerns. This medical document was created using electronic medical record system with [employer] dictation system. Although this document has been carefully reviewed, there may still be some phonetic and typographical errors. These areas are purely typographical due to the imperfection of the software programs, and do not reflect any compromise in the patient's medical care. Plan discussed with: Patient, Other (nurse, medical representative) RODRIGUEZ LEBRON MD Sep 04, 2024 08:32
--- NOTE | 2024-09-04 09:17 | DVH ---
BILATERAL Lower Extremity Arterial Duplex Date: 09/04/2024 08:17 AM Clinical History: Rule out pseudoaneurysm Comparison: None Technique: Duplex Doppler evaluation including color Doppler and spectral/pulsed waveform analysis of the lower extremity arteries was performed. Finding: Velocities within normal limits. Biphasic waveforms REFERENCE VALUES, [facility] ([facility]) vascular Imaging Lab Criteria: Peak systolic velocity ranges (in cm/sec) are as follows: <150 cm/s - <20 % stenosis 150-200 cm/s - 20-49% stenosis 200-300 cm/s - 50-75% stenosis >300 cm/s -> 75% stenosis IMPRESSION: There is no evidence for peripheral vascular insufficiency in the right lower extremity. There is no evidence for peripheral vascular insufficiency in the left lower extremity. No significant focal stenosis is identified.
[2024-09-04] MEDS: CARVEDILOL 3.125 MG TAB PO SCH (10:00)
[2024-09-04] MEDS: FUROSEMIDE 40 MG TAB PO SCH (10:00)
[2024-09-04] MEDS: SPIRONOLACTONE 25 MG TAB PO SCH (10:00)
[2024-09-04] MEDS: CHOLECALCIFEROL (VITD3) 1,000UNIT=25mCg TAB PO SCH (10:45)
[2024-09-04] MEDS: PANTOPRAZOLE 40 MG TAB PO SCH (10:45)
[2024-09-04] MEDS: MULTIPLE VITAMIN TAB PO SCH (10:45)
[2024-09-04] MEDS: ASCORBIC ACID 500 MG TAB PO SCH (10:45)
[2024-09-04] MEDS: DULoxetine HCL 30 MG CAP PO SCH (10:45)
[2024-09-04] MEDS: CLOPIDOGREL BISULFATE 75 MG TAB PO SCH (10:46)
[2024-09-04] MEDS: ASPirin-EC 81 mg tab PO SCH (10:46)
[2024-09-04] MEDS: SACUBITRIL-VALSARTAN 24mg/26mg TAB PO SCH (10:49)
[2024-09-04] MEDS: RANOLAZINE ER 500 MG TAB PO SCH (10:49)
[2024-09-04] MEDS: BUDESONIDE (INHALATION) 0.5 MG/2 ML NEB NEB SCH (11:00)
[2024-09-04] MEDS ORDERED: ALBUTEROL MEDNEB 2.5 mg/3ml NEB NEB SCH (12:00)
[2024-09-04] MEDS: ALBUTEROL SULF 2.5 MG/0.5ML(0.5%) NEB SOLN NEB SCH (13:00)
[2024-09-04] MEDS: LACTULOSE 20Gm/30ML SOLN PO SCH (14:00)
--- NOTE | 2024-09-04 14:14 | DVHPNRES ---
Progress Note Date Seen: Sep 04, 2024 Resident Creating Document: AXEL CARABALLO RESIDENT Has the PT tested + for MRSA If YES, has PT been informed?: No Medical Necessity Reason Pt with a Central, PICC or Fol: No Subjective Review of Systems This is an 79-year-old female with past medical history of hypertension, dyslipidemia, CAD, recent coronary angiogram with 2 GUME placement on 09/03/2024, status post quadruple vessel CABG, ischemic cardiomyopathy with heart failure with reduced ejection fraction of 20%, COPD, GERD, nonobstructive kidney stones, who presented to the ED with chief complaint of nonradiating retrosternal chest pain rated as 10/10 on the pain scale which worsened with cough and reproduces with palpation. The patient also reported associated abdominal tenderness in the right lower quadrant of the abdomen. Patient reported that she got just coronary angiogram at another facility with placement of two stents via groin access. Patient stated that after coronary angiogram she was discharged home but she continued to have chest discomfort reason why she presented to the ED. initial evaluation showed EKG showing right bundle branch block with ventricular paced rhythm no significant changes in the ST segment. Troponins came back slightly elevated at 280. Upon my examination the patient was having chronic cough, mild to moderate shortness of breath requiring 2 L of oxygen through nasal cannula to saturating 97%. Patient will be admitted for further assessment and management of chest pain, to rule out ACS. Patient seen and examined at bedside. Upon my examination, the patient still reports chest discomfort that get worsened and reproducible with palpation to the retrosternal region. Patient also reports that the pain radiates to the left arm. Patient is currently having mild to moderate shortness of breath requiring 2 L of oxygen through nasal cannula to saturating 97%. Patient is currently having chronic cough but lung sounds are grossly clear with decreased breathing sounds on bilateral lung kelly slightly due to history of COPD. We will start the patient on methylprednisolone 40 mg daily IV and respiratory therapy with albuterol and ipratropium for possible COPD exacerbation. Patient had recent history of coronary angiogram with two stents placement, cardiology was consulted and stated that pain is mainly noncardiac in etiology. We will also start azithromycin for possible COPD exacerbation or viral pneumonia (URI). We also ordered a CT of the abdomen since the patient was complaining of right lower quadrant abdominal tenderness. ROS Constitutional: Denies weight loss, fever and chills. HEENT: Denies changes in vision and hearing. Respiratory: Reports mild to moderate shortness of breath and chronic cough. Cardiovascular: Reports chest discomfort located retrosternally that gets exacerbated with slight palpation of the chest. GI: Reports mild to moderate abdominal tenderness to palpation to the right lower quadrant. Denies nausea or vomiting. : Denies dysuria and urinary frequency. Musculoskeletal: Denies myalgias and joint pain Skin: Denies rash and pruritus. Neurological: Denies dizziness, headache, vision or hearing problems Objective vital signs Vital Sign Date Time Temp Pulse Resp B/P (MAP) Pulse Ox O2 Delivery O2 Flow Rate FiO2 09/04/24 12:00 80 15 108/48 (68) 95 09/04/24 08:18 97.6 2.0 28 97.6 09/04/24 07:43 Nasal Cannula* Total Intake and Output 09/03/24 09/03/24 09/04/24 15:00 23:00 07:00 Intake Total 237 ml Balance 237 ml medications Current Medications Medications Dose Ordered Sig/Asha Route Start Time Stop Time Status Last Admin Dose Admin Ondansetron HCl 4 mg Q4HP PRN IV 09/04/24 06:00 Nitroglycerin 0.4 mg Q5MINP PRN SL 09/04/24 06:00 Morphine Sulfate 2 mg Q30M PRN IV 09/04/24 06:00 09/04/24 09:38 2 MG Acetaminophen 650 mg TID PO 09/04/24 06:00 Albuterol 0.5 mcg Q4HPRN PRN IN 09/04/24 06:00 Cancel Ascorbic Acid 500 mg BID PO 09/04/24 10:00 09/04/24 10:45 500 MG Aspirin 81 mg DAILY PO 09/04/24 10:00 09/04/24 10:46 81 MG Atorvastatin Calcium 40 mg HS PO 09/04/24 22:00 Carvedilol 3.125 mg BID PO 09/04/24 10:00 Clopidogrel Bisulfate 75 mg DAILY PO 09/04/24 10:00 09/04/24 10:46 75 MG Duloxetine HCl 30 mg DAILY PO 09/04/24 10:00 09/04/24 10:45 30 MG Furosemide 40 mg DAILY PO 09/04/24 10:00 Multivitamins 1 tab DAILY PO 09/04/24 10:00 09/04/24 10:45 1 TAB Oxybutynin Chloride 5 mg Q8HR PO 09/04/24 06:00 09/04/24 06:28 5 MG Oxycodone/ Acetaminophen 1 tab QID PO 09/04/24 06:00 09/04/24 12:27 1 TAB Pantoprazole Sodium 40 mg DAILY PO 09/04/24 10:00 09/04/24 10:45 40 MG Polyethylene Glycol 17 gm DAILY PRN PO 09/04/24 06:00 Ranolazine 500 mg BID PO 09/04/24 10:00 09/04/24 10:49 500 MG Sacubitril/ Valsartan 1 tab BID PO 09/04/24 10:00 09/04/24 10:49 1 TAB Spironolactone 25 mg DAILY PO 09/04/24 10:00 09/04/24 10:49 25 MG Cholecalciferol 2,000 unit BID PO 09/04/24 10:00 09/04/24 10:45 2,000 UNIT Budesonide 0.5 mg BID NEB 09/04/24 10:00 Patient Own Medication 1 vial Q6HPRN PRN NEB 09/04/24 06:00 UNV Albuterol 2.5 mg Q6HR NEB 09/04/24 12:00 Ipratropium [place] 0.5 mg Q6HR NEB 09/04/24 18:00 UNV Examination Physical Examination General: Patient alert and oriented in person, place and time. Patient following commands. HEENT: Normocephalic, atraumatic, moist mucous membranes Respiratory/pulmonary: There is decreased breath sounds on bilateral lungs there is no major crackles or wheezes at this time. Patient is having persistent cough Cardiovascular: Normal heart sounds S1 and S2 with no associated murmurs Abdomen: Abdomen nondistended, there is moderate tenderness to palpation of the right and left lower quadrant. No abdominal masses at this time. Extremities: There is no peripheral edema present at the lower extremities. Peripheral Pulses: 3+ Radial (R). 3+ Radial (L). 3+ Dorsalis pedis (R). 3+ Dorsalis pedis(L) Skin: No rashes or pruritus, there is no sacral edema present at this time. Neurological: Intact cranial nerves with no focal neurologic deficits laboratory and microbiology Laboratory Tests 09/04/24 06:10 Test 09/04/24 06:10 Range/Units Serum Glucose 92 74-106 mg/dL Problem List/Assessment/Plan Problem List/Assessment/Plan Assessment/Plan Acute chest pain, Ruled out ACS likely non cardiac Acute hypoxic respiratory failure likely due to COPD exacerbation COPD exacerbation Acute on chronic systolic heart failure (HFrEF 20%) S/P coronary angiogram with 2 GUME placement at [facility] Ruled out DVT/PE -currently reports chest pain retrosternally that is reproducible with palpation -EKG showing ventricular paced rhythm no major ST segment abnormalities -troponins elevated at 280 -cardiology on board -continue aspirin 81 mg daily -continue clopidogrel 75 mg daily -continue Entresto one tab b.i.d. -spironolactone 25 mg daily -carvedilol 3.125 mg b.i.d. -Ranolazine 500 mg b.i.d. -furosemide 40 mg daily -start albuterol and ipratropium med nebs q.6 scheduled -start azithromycin IV -start methylprednisolone 40 mg daily -Currently on 2 L of oxygen through nasal cannula saturating 97% -bilateral lower extremity venous Doppler came back showing no DVT Acute abdominal pain likely due to Acute constipation -CT scan of the abdomen show signs of constipation -start lactulose 30 cc b.i.d. -start MiraLax 17 g daily LENORA on CKD Stage IIIB -Cr and BUN improving compare to admission -Monitor kidney function History of coronary artery disease - status post CABG and PCI -continue aspirin 81 mg daily -continue Plavix 75 mg daily -control blood pressure closely History of nonobstructive kidney stones symptomatic by chronic back pain -ct abd showed Punctate left nephrolithiasis without hydronephrosis -continue monitor Goals of care discussed with the patient at bedside for > 25min Plan discussed with Dr. Bullock Plan discussed with: Patient My Orders My Orders Orders - AXEL CARABALLO Procedure Category Date Status Time Urinalysis LAB 09/04/24 Logged 07:05 Ipratropium [place] PHA 09/04/24 Logged (Atrovent Medneb) 18:00 Methylprednisolone PHA 09/04/24 Verified Sod Succ (Solu Medrol 14:20 Date of Service: Sep 04, 2024 Billing Provider: ANGELY BULLOCK MD Common Visit Codes: 44440-[id number] INP/OBS CARE(HIGH) AXEL CARABALLO RESIDENT Sep 04, 2024 14:14 ANGELY BULLOCK MD Sep 04, 2024 19:41
[2024-09-04] MEDS: methylPREDNISolone SOD SUCC 40 MG/ML VL IV SCH (14:35)
[2024-09-04] MEDS ORDERED: AZITHROMYCIN 500MG/ 250ML 250 ML IV SCH (15:00)
[2024-09-04] MEDS: DOXYCYCLINE 100MG/100ML 100 ML IV ONE (15:28)
--- NOTE | 2024-09-04 17:37 | DVHSR ---
APPROVED REPORT EXAM: Two-dimensional and M-mode echocardiogram with Doppler and color Doppler. Blood Pressure: 111/51 mmHg INDICATION NSTEMI, recent PCI RISK FACTORS Obesity: Height: 5'4, Weight: 160 DIMENSIONS LVDd5.9 (3.8-5.7cm)LA (2D)4.1 (1.9-4.0cm)Aortic Root2.8 (2.0-3.7cm) LVDs5.7 (2.5-4.0cm)LA (MM) (1.9-4.0cm)Aortic Cusp Exc1.4 (1.5-2.0cm) EF (%) 10.0 (55-70%)Rt. Atrium3.1 (1.9-4.0cm)Asc. Aorta cm IVSd1.1 (0.7-1.1cm)RV (D)3.8 (1.8-2.4cm) PWd0.9 (0.7-1.1cm) Mitral Valve MitralMitral Stenosis E wave0.41m/sMV Mean GR.mmHg A wave0.90m/sMV Peak GR.61mmHg E/A ratio0.52D MVAcm2 DECEL [id number] 1/2 [place] Aortic Valve Aortic ValveAortic Stenosis V10.83m/Pedro Mean GR.3mmHg V21.12m/Pedro Peak GR.5mmHg LVOT Diameter2.0 (1.8-2.4cm)Doppler AVA2.33cm2 Pulmonic Valve V20.85m/s Other Information Technically limited study due to patient position.body habitus. Conclusion Left ventricle: Left ventricle was dilated. Diffuse hypokinesis with regional variation of the left ventricle was seen. LVEF was around 10%. EDP was assessed to be elevated. Right ventricle was normal-sized with normal systolic function. Left atrium was dilated. Right atri um was normal-sized. Pacing wire was seen in right-sided chambers. Aortic valve was not well visualized. There was no aortic insufficiency/stenosis. Mild mitral regur gitation was seen. There was no tricuspid regurgitation. Pulmonary valve was not well visualized. As there was no good tricuspid regurgitation jet, right ventricular systolic pressure could not be es timated. There was no pericardial effusion.
[2024-09-04] MEDS: IPRATROPIUM BROM 0.5 MG/2.5ML INH SOL NEB SCH (18:58)
[2024-09-04] MEDS: ATORVASTATIN 20 MG TAB PO SCH (22:15)
[2024-09-04] MEDS: DOXYCYCLINE 100MG/100ML 100 ML IV SCH (22:20)
[2024-09-04 22:43] LABS: Urine Bacteria None Seen /hpf (None Seen)
[2024-09-04 22:56] LABS: Urine Blood Negative /uL (Negative); Urine Budding Yeast OCCASIONAL /hpf (None Seen); Urine Clarity Clear (Clear); Urine Color Yellow (Yellow); Urine Hyaline Cast FEW /lpf (0 - 2); Urine Protein, UAD Negative (Negative); Urine Specific Gravity 1.028 (1.001-1.035); Urine Squamous Epithelial Cell FEW /hpf (<5); Urine Urobilinogen Normal (Negative); Urine WBC 9 /HPF (0-5); Urine pH 5.5 (5.0-9.0)
[2024-09-04 23:04] LABS: Amphetamine Screen, Urine Neg (NEGATIVE); Barbiturate Scree,Urine Neg (NEGATIVE); Benzodiazephine Screen, Urine Pos (NEGATIVE); Cannabinoid Screen, Urine Neg (NEGATIVE); Cocaine Screen, Urine Neg (NEGATIVE); Opiate Scree,Urine Pos (NEGATIVE); Phencyclidine Screen, Urine Neg (NEGATIVE)
[2024-09-05] VITALS (18 sets, daily range): BP systolic 92–116; BP diastolic 40–64; PULSE 62–89; RESP 15–19; TEMP 97.7–98; O2SAT 95–100
[2024-09-05 05:44] LABS: Basophils # (auto) 0 10 ^3/uL (0-0.2); Basophils % (auto) 0.2 % (0.0-2.0); Eosinophils # (auto) 0 10 ^3/uL (0-0.8); Hematocrit 39.1 % (36.0-46.0); Hemoglobin 12.8 g/dL (12.2-16.2); Lymphocytes # (auto) 0.8 10 ^3/uL (0.4-5.4); Mean Corpuscular Hemoglobin 29.2 pg (28.0-32.0); Mean Corpuscular Hgb Conc. 32.8 g/dL (32.0-36.0); Mean Corpuscular Volume 88.9 fL (80.0-100.0); Monocytes # (auto) 0.3 10 ^3/uL (0-1.3); Neutrophils # (auto) 4.5 10 ^3/uL (1.6-8.6); Neutrophils % (auto) 79.8 % (37.0-80.0); Nucleated Red Blood Cells % 0.1 %; Platelet Count (auto) 266 10^3/uL (140-450); Red Cell Distribution Width 15.6 % (11.8-14.3); White Blood Cell 5.6 10^3/uL (4.4-10.8)
[2024-09-05 05:51] LABS: Anion Gap 6 (5-15); Carbon Dioxide 26 mmol/L (20-31); Potassium 4.7 mmol/L (3.5-5.1); Sodium 139 mmol/L (136-145)
[2024-09-05 05:52] LABS: Chloride 107 mmol/L (98-107)
[2024-09-05 05:53] LABS: Calcium 9.7 mg/dL (8.7-10.4)
[2024-09-05 05:57] LABS: BUN/Creatinine Ratio 23.1 (10.0-20.0)
[2024-09-05 06:04] LABS: Blood Urea Nitrogen 27 mg/dL (9-23); Glucose 119 mg/dL (74-106)
--- NOTE | 2024-09-05 09:11 | DVHPN2 ---
Progress Note - Dictate Date Seen: Sep 05, 2024 Has the PT tested + for MRSA If YES, has PT been informed?: No Medical Necessity Reason Pt with a Central, PICC or Fol: No vital signs Vital Sign Date Time Temp Pulse Resp B/P (MAP) Pulse Ox O2 Delivery O2 Flow Rate FiO2 09/05/24 06:08 75 18 98 09/05/24 06:04 106/60 09/05/24 05:58 Nasal Cannula* 2 28 09/05/24 04:50 98.0 98.0 Total Intake and Output 09/04/24 09/04/24 09/05/24 15:00 23:00 07:00 Intake Total 0 ml 100 ml Output Total 0 ml 0 ml Balance 0 ml 100 ml medications Current Medications Medications Dose Ordered Sig/Asha Route Start Time Stop Time Status Last Admin Dose Admin Ondansetron HCl 4 mg Q4HP PRN IV 09/04/24 06:00 Nitroglycerin 0.4 mg Q5MINP PRN SL 09/04/24 06:00 Acetaminophen 650 mg TID PO 09/04/24 06:00 Albuterol 0.5 mcg Q4HPRN PRN IN 09/04/24 06:00 Cancel Ascorbic Acid 500 mg BID PO 09/04/24 10:00 09/04/24 22:15 500 MG Aspirin 81 mg DAILY PO 09/04/24 10:00 09/04/24 10:46 81 MG Atorvastatin Calcium 40 mg HS PO 09/04/24 22:00 09/04/24 22:15 40 MG Carvedilol 3.125 mg BID PO 09/04/24 10:00 Clopidogrel Bisulfate 75 mg DAILY PO 09/04/24 10:00 09/04/24 10:46 75 MG Duloxetine HCl 30 mg DAILY PO 09/04/24 10:00 09/04/24 10:45 30 MG Furosemide 40 mg DAILY PO 09/04/24 10:00 Multivitamins 1 tab DAILY PO 09/04/24 10:00 09/04/24 10:45 1 TAB Oxybutynin Chloride 5 mg Q8HR PO 09/04/24 06:00 09/05/24 06:04 5 MG Oxycodone/ Acetaminophen 1 tab QID PO 09/04/24 06:00 09/05/24 06:04 1 TAB Pantoprazole Sodium 40 mg DAILY PO 09/04/24 10:00 09/04/24 10:45 40 MG Ranolazine 500 mg BID PO 09/04/24 10:00 09/04/24 22:15 500 MG Sacubitril/ Valsartan 1 tab BID PO 09/04/24 10:00 09/04/24 22:15 1 TAB Spironolactone 25 mg DAILY PO 09/04/24 10:00 09/04/24 10:49 25 MG Cholecalciferol 2,000 unit BID PO 09/04/24 10:00 09/04/24 22:15 2,000 UNIT Budesonide 0.5 mg BID NEB 09/04/24 10:00 09/05/24 05:57 0.5 MG Patient Own Medication 1 vial Q6HPRN PRN NEB 09/04/24 06:00 UNV Ipratropium [place] 0.5 mg Q6HR NEB 09/04/24 18:00 09/05/24 05:57 0.5 MG Methylprednisolone Sodium Succinate 40 mg DAILY IV 09/04/24 14:20 09/04/24 14:35 40 MG Lactulose 30 ml BID PO 09/04/24 14:00 Polyethylene Glycol 17 gm DAILY PO 09/05/24 10:00 Albuterol 2.5 mg Q6HR NEB 09/04/24 12:00 09/05/24 05:57 2.5 MG Doxycycline Hyclate 100 ml @ 50 mls/hr BID IV 09/04/24 22:00 09/04/24 22:20 50 MLS/HR Morphine Sulfate 1 mg Q6HP PRN IV 09/04/24 16:30 09/05/24 05:22 1 MG laboratory and microbiology Laboratory Tests 09/05/24 05:00 Test 09/05/24 05:00 Range/Units Serum Glucose 119 H 74-106 mg/dL Assessment/Plan Patient is a 79-year-old female who presented with abdominal pain/chest discomfort. Cardiology was involved for cardiac aspects of care. Patient is known to our practice from before. She was recently [facility] and had cardiac catheterization/PCI to LAD. At the time of evaluation, denies chest pains. Right groin access site for left heart catheterization in early August looks acceptable with no side for hematoma. Patient has poor baseline functional capacity. Does have old history of multiple cardiac problems. She likes her pain medications. Lying comfortably flat in bed, no JVD, pink and wet mucosa, no carotid bruit, no goiter, lungs: Not using accessory muscles of breathing, lungs reveal scattered rhonchi, cardiac: Regular regular, no thrill/gallop, 2+murmur in apex, abdomen: Soft, no hepatomegaly, some suprapubic and upper epigastric tenderness is positive, no rebound tenderness, extremities: No edema, dorsalis pedis is 2+ bilateral. Right femoral/groin area with no hematoma. Past medical history includes hypertension, hyperlipidemia, coronary artery disease, history of CABG (2010), systolic heart failure, ischemic cardiomyopathy, gout, kidney stone, s/p ESWL, frequent UTI, history of CVA, Diverticulosis, COPD, s/p COVID, depression, Anxiety, GERD, history of appendectomy/hysterectomy/tonsillectomy, and history of BiV ICD (Biotronik) implantation. She is chronically wheelchair-bound. She was previously in hospice for heart failure. She is allergic to codeine. She quit smoking years ago. She is DNR. She also has diagnosis of parkinsonism. Cardiac catheterization of August 26, 2024 (performed in [facility]) revealed triple-vessel [place] coronary artery disease. BRAND PLANNER of obtuse marginal. BRAND PLANNER of RCA. Lad with 75% lesion and status post drug-eluting stent deployment. It is of note that there is patent SVG to obtuse marginal and also patent SVG to RCA. Cardiac catheterization of September 2020 revealed ejection fraction of 20%, BRAND PLANNER of SVG to diagonal, patent TAN, patent SVG to OM, patent SVG to PDA and BRAND PLANNER of RCA. Echocardiogram of August 25, 2024 (performed in [facility]) for PE old ejection fraction of 20% Echocardiogram of reported: LV EF of 15-20%, biatrial enlargement, pacing wire in the right-sided chambers. Echocardiogram of November 22, 2023 revealed: Dilated left ventricle, LVEF of 10%, pacing wire and right-sided chambers, mild mitral regurgitation. Echocardiogram of August 28, 2023 revealed: Dilated left ventricle with significantly reduced systolic function. LVEF of 20%. Elevated LVEDP, dilated four chambers. Pacing wire was seen in right-sided chamber. [id number] MR. Echocardiogram of January 03, 2023 revealed ejection fraction of 20 to 25% and mild left ventricular enlargement Echocardiogram of March 25, 2023 (performed in the office) revealed four- chamber dilatation, LVEF of 20 to 25%, mild to moderate MR, mild TR, trace pulmonary valve insufficiency and right ventricular systolic pressure of 35 mmHg Echocardiogram of March 21, 2022 revealed ejection fraction of around 20%, mild MR/TR Echocardiogram of February 17, 2021 revealed dilated LV, LVEF around 25%, severe diffuse hypokinesis, increased LVEDP, dilated left and right atria, mild to moderate MR, mild TR. Echocardiogram of December 30, 2020 reported ejection fraction less than 20% and dilated left atrium. Echocardiogram of August 2020 revealed ejection fraction less than 25%, right atrial enlargement, left atrial enlargement and moderate MR. Creat: 1.35 - 1.28 - 1.17 Potassium: 4.2 - 4.6 - 4.7 BNP: 742.99 Troponin (high sensitive): 263 - 280 - 213 TSH: 3.49 U/A: non-revealing Urine toxicology was positive for Benzodiazepine and Opiates Chest x-ray revealed: IMPRESSION: 1. No definite acute cardiopulmonary disease. Poor visualization of the left base may be technical. Abdomen and pelvis CT scan revealed: IMPRESSION: 1. No hematoma of the groins, bilaterally. 2. Small esophageal hiatal hernia. 3. Hepatomegaly with fatty infiltration. 4. Punctate left nephrolithiasis without hydronephrosis. 5. Fecal retention in the colon consistent with constipation. 6. Umbilical hernia containing fat. 7. Degenerative changes lumbar spine as described. EKG shows a sensed, V paced rhythm Tele shows sinus rhythm, V paced Echocardiogram reported: Left ventricle: Left ventricle was dilated. Diffuse hypokinesis with regional variation of the left ventricle was seen. LVEF was around 10%. EDP was assessed to be elevated. Right ventricle was normal-sized with normal systolic function. Left atrium was dilated. Right atrium was normal-sized. Pacing wire was seen in right-sided chambers. Aortic valve was not well visualized. There was no aortic insufficiency/stenosis. Mild mitral regurgitation was seen. There was no tricuspid regurgitation. Pulmonary valve was not well visualized. As there was no good tricuspid regurgitation jet, right ventricular systolic pressure could not be estimated. There was no pericardial effusion. Patient is a 79-year-old female we will came through with atypical chest discomfort/lower abdominal pain. Does have baseline history of elevated chronic troponin. Presentation is not considered acute coronary syndrome. Did have recent PCI in other facility. To be kept on aspirin/Plavix. Presentation questions URI/bronchitis/COPD exacerbation. Does have baseline history of ischemic/systolic heart failure which at this point is considered compensated. She is DNR. At this point no ischemic work-up is indicated. Chest pain, atypical Bronchitis/URI COPD exacerbation Ischemic cardiomyopathy, history of Coronary artery disease, status post CABG Status post PCI Diverticular disease Renal calculi Emphysema Kidney stone, history of Coronary artery disease, SP CABG GERD Hypertension Hyperlipidemia Gout Constipation UTI Cardiac suggestion for management: Manage on telemetry Follow-up electrolytes and kidney function tests and correct abnormalities No indication for ischemic work up at this point Continue Aspirin/Plavix Management of URI/bronchitis/COPD exacerbation as per primary team/pulmonology. Cardiac monge, stable Further evaluation and management depends on the above and clinical course A total of 55 minutes was spent reviewing the patient record, examining the patient, making a diagnostic and therapeutic plan, discussing this plan with medical personnel, following up on diagnostic studies and following the patient for clinical stability excluding any and all procedures. At least 50% of this time was spent in direct, [id number] contact. Thank you for allowing me to participate in this patient's care. Further recommendations will depend on patient's clinical course. Please do not hesitate to contact me if you have any questions or concerns. This medical document was created using electronic medical record system with [employer] computerized dictation system. Although this document has been carefully reviewed, there may still be some phonetic and typographical errors. These areas are purely typographical due to the imperfection of the software programs, and do not reflect any compromise in the patient's medical care. Plan discussed with: Patient, Other (nurse) RODRIGUEZ LEBRON MD Sep 05, 2024 09:11
[2024-09-05] MEDS: POLYETHYLENE GLYCOL 17 GM PWDR PO SCH (09:58)
--- NOTE | 2024-09-05 12:36 | DVHPN2 ---
Subjective Seen and examined at bedside, cont present tx. Possible DC tomorrow. Changes from previous H/P or p: No Changes Objective Vitals Vital Signs Date Time Temp Pulse Resp B/P (MAP) Pulse Ox O2 Delivery O2 Flow Rate FiO2 09/05/24 11:34 70 18 116/47 09/05/24 09:00 97.9 97 97.9 09/05/24 08:00 Nasal Cannula* 2 28 Intake/Output Intake and Output 09/05/24 07:00 Intake Total 100 ml Output Total 0 ml Balance 100 ml Intake Oral 0 ml IV Total 100 ml Output Urine Total 0 ml General Appearance: Alert, Oriented X3, Cooperative Lungs: Clear to auscultation Cardiovascular: Regular rate, Normal S1, Normal S2 Abdomen: Normal bowel sounds Psych/Mental Status: Mental status NL Medications Current Medications Medications Dose Ordered Sig/Asha Route Start Time Stop Time Status Last Admin Dose Admin Ondansetron HCl 4 mg Q4HP PRN IV 09/04/24 06:00 Nitroglycerin 0.4 mg Q5MINP PRN SL 09/04/24 06:00 Acetaminophen 650 mg TID PO 09/04/24 06:00 Albuterol 0.5 mcg Q4HPRN PRN IN 09/04/24 06:00 Cancel Ascorbic Acid 500 mg BID PO 09/04/24 10:00 09/05/24 10:02 500 MG Aspirin 81 mg DAILY PO 09/04/24 10:00 09/05/24 10:01 81 MG Atorvastatin Calcium 40 mg HS PO 09/04/24 22:00 09/04/24 22:15 40 MG Carvedilol 3.125 mg BID PO 09/04/24 10:00 09/05/24 10:03 3.125 MG Clopidogrel Bisulfate 75 mg DAILY PO 09/04/24 10:00 09/05/24 10:02 75 MG Duloxetine HCl 30 mg DAILY PO 09/04/24 10:00 09/05/24 10:04 30 MG Furosemide 40 mg DAILY PO 09/04/24 10:00 09/05/24 10:00 40 MG Multivitamins 1 tab DAILY PO 09/04/24 10:00 09/05/24 10:05 1 TAB Oxybutynin Chloride 5 mg Q8HR PO 09/04/24 06:00 09/05/24 06:04 5 MG Oxycodone/ Acetaminophen 1 tab QID PO 09/04/24 06:00 09/05/24 06:04 1 TAB Pantoprazole Sodium 40 mg DAILY PO 09/04/24 10:00 09/05/24 09:58 40 MG Ranolazine 500 mg BID PO 09/04/24 10:00 09/05/24 10:03 500 MG Sacubitril/ Valsartan 1 tab BID PO 09/04/24 10:00 09/05/24 10:01 1 TAB Spironolactone 25 mg DAILY PO 09/04/24 10:00 09/04/24 10:49 25 MG Cholecalciferol 2,000 unit BID PO 09/04/24 10:00 09/05/24 10:04 2,000 UNIT Budesonide 0.5 mg BID NEB 09/04/24 10:00 09/05/24 05:57 0.5 MG Patient Own Medication 1 vial Q6HPRN PRN NEB 09/04/24 06:00 UNV Ipratropium [place] 0.5 mg Q6HR NEB 09/04/24 18:00 09/05/24 12:21 0.5 MG Methylprednisolone Sodium Succinate 40 mg DAILY IV 09/04/24 14:20 09/04/24 14:35 40 MG Lactulose 30 ml BID PO 09/04/24 14:00 Polyethylene Glycol 17 gm DAILY PO 09/05/24 10:00 Albuterol 2.5 mg Q6HR NEB 09/04/24 12:00 09/05/24 12:21 2.5 MG Doxycycline Hyclate 100 ml @ 50 mls/hr BID IV 09/04/24 22:00 09/05/24 10:01 50 MLS/HR Morphine Sulfate 1 mg Q6HP PRN IV 09/04/24 16:30 09/05/24 11:34 1 MG Laboratory Results Laboratory Tests 09/05/24 05:00 Chemistry Test 09/05/24 05:00 Calcium Level 9.7 mg/dL (8.7-10.4) Urinalysis Test 09/04/24 22:22 Urine Color Yellow (Yellow) Urine Clarity Clear (Clear) Urine pH 5.5 (5.0-9.0) Urine Specific [place] 1.028 (1.001-1.035) Urine Protein Negative (Negative) Urine Ketones Negative (Negative) Urine Blood Negative /uL (Negative) Urine Nitrite Negative (Negative) Urine Bilirubin Negative (Negative) Urine Urobilinogen Normal mg/dL (Negative) Urine Leukocyte Esterase 2+ /uL (Negative) Urine RBC 1 /hpf (0 - 4) Urine Microscopic WBC 9 /HPF (0-5) H Urine Squamous Epithelial Cells Few /hpf (<5) Urine Bacteria None seen /hpf (None Seen) Urine Hyaline Casts Few /lpf (0 - 2) Urine Yeast (Budding) Occasional /hpf (None Urine Glucose Normal mg/dL (Normal) Assessment/Plan Assessment/Plan Acute chest pain, Ruled out ACS likely non cardiac Acute hypoxic respiratory failure likely due to COPD exacerbation COPD exacerbation Acute on chronic systolic heart failure (HFrEF 10%) S/P coronary angiogram with 2 GUME placement [facility] Plan: Seen by Dr. Mercado. [facility]. [place] back to [facility] tomorrow. Plan discussed with: Patient My Orders Orders - ANGELY BULLOCK MD Procedure Category Date Status Time Discontinue Tele AME 09/05/24 In Process 12:32 * Nuclear Power[employer]per CONS 09/05/24 Verified Consult Date of Service: Sep 05, 2024 Billing Provider: ANGELY BULLOCK MD Common Visit Codes: [id number] INP/OBS CARE(LOW) ANGELY BULLOCK MD Sep 05, 2024 12:36
--- NOTE | 2024-09-05 14:26 | DVHPN2 ---
Progress Note - Dictate Date Seen: Sep 05, 2024 Has the PT tested + for MRSA If YES, has PT been informed?: No Medical Necessity Reason Pt with a Central, PICC or Fol: No vital signs Vital Sign Date Time Temp Pulse Resp B/P (MAP) Pulse Ox O2 Delivery O2 Flow Rate FiO2 09/05/24 12:46 97.9 65 17 93/50 (64) 96 97.9 09/05/24 10:00 Nasal Cannula 2.0 09/05/24 10:00 28 Total Intake and Output 09/04/24 09/04/24 09/05/24 15:00 23:00 07:00 Intake Total 0 ml 100 ml Output Total 0 ml 0 ml Balance 0 ml 100 ml medications Current Medications Medications Dose Ordered Sig/Asha Route Start Time Stop Time Status Last Admin Dose Admin Ondansetron HCl 4 mg Q4HP PRN IV 09/04/24 06:00 Nitroglycerin 0.4 mg Q5MINP PRN SL 09/04/24 06:00 Acetaminophen 650 mg TID PO 09/04/24 06:00 Albuterol 0.5 mcg Q4HPRN PRN IN 09/04/24 06:00 Cancel Ascorbic Acid 500 mg BID PO 09/04/24 10:00 09/05/24 10:02 500 MG Aspirin 81 mg DAILY PO 09/04/24 10:00 09/05/24 10:01 81 MG Atorvastatin Calcium 40 mg HS PO 09/04/24 22:00 09/04/24 22:15 40 MG Carvedilol 3.125 mg BID PO 09/04/24 10:00 09/05/24 10:03 3.125 MG Clopidogrel Bisulfate 75 mg DAILY PO 09/04/24 10:00 09/05/24 10:02 75 MG Duloxetine HCl 30 mg DAILY PO 09/04/24 10:00 09/05/24 10:04 30 MG Furosemide 40 mg DAILY PO 09/04/24 10:00 09/05/24 10:00 40 MG Multivitamins 1 tab DAILY PO 09/04/24 10:00 09/05/24 10:05 1 TAB Oxybutynin Chloride 5 mg Q8HR PO 09/04/24 06:00 09/05/24 06:04 5 MG Oxycodone/ Acetaminophen 1 tab QID PO 09/04/24 06:00 09/05/24 13:01 1 TAB Pantoprazole Sodium 40 mg DAILY PO 09/04/24 10:00 09/05/24 09:58 40 MG Ranolazine 500 mg BID PO 09/04/24 10:00 09/05/24 10:03 500 MG Sacubitril/ Valsartan 1 tab BID PO 09/04/24 10:00 09/05/24 10:01 1 TAB Spironolactone 25 mg DAILY PO 09/04/24 10:00 09/04/24 10:49 25 MG Cholecalciferol 2,000 unit BID PO 09/04/24 10:00 09/05/24 10:04 2,000 UNIT Budesonide 0.5 mg BID NEB 09/04/24 10:00 09/05/24 05:57 0.5 MG Patient Own Medication 1 vial Q6HPRN PRN NEB 09/04/24 06:00 UNV Ipratropium [place] 0.5 mg Q6HR NEB 09/04/24 18:00 09/05/24 12:21 0.5 MG Methylprednisolone Sodium Succinate 40 mg DAILY IV 09/04/24 14:20 09/04/24 14:35 40 MG Lactulose 30 ml BID PO 09/04/24 14:00 Polyethylene Glycol 17 gm DAILY PO 09/05/24 10:00 Albuterol 2.5 mg Q6HR NEB 09/04/24 12:00 09/05/24 12:21 2.5 MG Doxycycline Hyclate 100 ml @ 50 mls/hr BID IV 09/04/24 22:00 09/05/24 10:01 50 MLS/HR Morphine Sulfate 1 mg Q6HP PRN IV 09/04/24 16:30 09/05/24 11:34 1 MG laboratory and microbiology Laboratory Tests 09/05/24 05:00 Test 09/05/24 05:00 Range/Units Serum Glucose 119 H 74-106 mg/dL Assessment/Plan Impression Chronic oxygen dependency Acute COPD exacerbation Atelectasis NSTEMI Patient seen and examined Events Low oxygen requirements On 2 liters nasal cannula No acute events Labs and imaging reviewed Management Supplemental oxygen Titrate to maintain sats 90% or above Incentive spirometry Antibiotics Bronchodilators Steroids for COPD management Solumedrol 40mg IV BID Monitor renal function Monitor electrolytes Supplement as needed F/u cardiology DVT prophylaxis Plan discussed with: Patient RYNE PEÑA MD Sep 05, 2024 14:26
[2024-09-05] MEDS: ONDANSETRON HCL 4 MG/2 ML VIAL IV PRN (15:04)
[2024-09-06] VITALS (9 sets, daily range): BP systolic 104–106; BP diastolic 41–54; PULSE 58–73; RESP 16–18; TEMP 98–98.1; O2SAT 95–100
[2024-09-06] MEDS ORDERED: METO25TA93 PO (09:54)
--- NOTE | 2024-09-06 09:57 | DVHDSRES ---
Discharge Summary Date of Admission Resident Creating Document: AXEL CARABALLO RESIDENT Sep 04, 2024 at 05:51 Date of Discharge: Sep 06, 2024 Admitting Diagnosis Acute chest pain Wounds: No wounds present at this time. Labs/Diagnostic Data: Laboratory Results Test 09/05/24 05:00 09/04/24 22:22 09/04/24 06:10 09/04/24 03:47 White Blood Count 5.6 10^3/uL (4.4-10.8) Red Blood Count 4.40 10^6/uL (4.0-5.20) Hemoglobin 12.8 g/dL (12.2-16.2) Hematocrit 39.1 % (36.0-46.0) Mean Corpuscular Volume 88.9 fL (80.0-100.0) Mean Corpuscular Hemoglobin 29.2 pg (28.0-32.0) Mean Corpuscular Hemoglobin Concent 32.8 g/dL (32.0-36.0) Red Cell Distribution Width 15.6 % (11.8-14.3) Platelet Count 266 10^3/uL (140-450) Mean Platelet Volume 8.1 fL (6.9-10.8) Neutrophils (%) (Auto) 79.8 % (37.0-80.0) Lymphocytes (%) (Auto) 15.0 % (10.0-50.0) Monocytes (%) (Auto) 5.0 % (0.0-12.0) Eosinophils (%) (Auto) 0.0 % (0.0-7.0) Basophils (%) (Auto) 0.2 % (0.0-2.0) Neutrophils # (Auto) 4.5 10 ^3/uL (1.6-8.6) Lymphocytes # (Auto) 0.8 10 ^3/uL (0.4-5.4) Monocytes # (Auto) 0.3 10 ^3/uL (0-1.3) Eosinophils # (Auto) 0 10 ^3/uL (0-0.8) Basophils # (Auto) 0 10 ^3/uL (0-0.2) Nucleated Red Blood Cells 0.1 % Sodium Level 139 mmol/L (136-145) Potassium Level 4.7 mmol/L (3.5-5.1) Chloride Level 107 mmol/L (98-107) Carbon Dioxide Level 26 mmol/L (20-31) Anion Gap 6 (5-15) Blood Urea Nitrogen 27 mg/dL (9-23) Creatinine 1.17 mg/dL (0.550-1.02) Glomerular Filtration Rate Calc 47 mL/min (>90) BUN/Creatinine Ratio 23.1 (10.0-20.0) Serum Glucose 119 mg/dL (74-106) Calcium Level 9.7 mg/dL (8.7-10.4) Urine Color Yellow (Yellow) Urine Clarity Clear (Clear) Urine pH 5.5 (5.0-9.0) Urine Specific [place] 1.028 (1.001-1.035) Urine Protein Negative (Negative) Urine Ketones Negative (Negative) Urine Blood Negative /uL (Negative) Urine Nitrite Negative (Negative) Urine Bilirubin Negative (Negative) Urine Urobilinogen Normal mg/dL (Negative) Urine Leukocyte Esterase 2+ /uL (Negative) Urine RBC 1 /hpf (0 - 4) Urine Microscopic WBC 9 /HPF (0-5) Urine Squamous Epithelial Cells Few /hpf (<5) Urine Bacteria None seen /hpf (None Seen) Urine Hyaline Casts Few /lpf (0 - 2) Urine Yeast (Budding) Occasional /hpf (None Urine Glucose Normal mg/dL (Normal) Urine Opiates Screen Pos (NEGATIVE) Urine Fentanyl Screen Neg (NEGATIVE) Urine Barbiturates Screen Neg (NEGATIVE) Urine Phencyclidine Screen Neg (NEGATIVE) Urine Amphetamines Screen Neg (NEGATIVE) Urine Benzodiazepines Screen Pos (NEGATIVE) Urine Cocaine Screen Neg (NEGATIVE) Urine Cannabinoids Screen Neg (NEGATIVE) Prothrombin Time 10.9 sec (9.3-11.8) Prothrombin Time INR 1.03 (0.9-1.15) Activated Partial Thromboplast Time 26.5 SEC (24.5-34.5) Total Bilirubin 0.7 mg/dL (0.2-1.0) Aspartate Amino Transferase (AST) 19 U/L (13-40) Alanine Aminotransferase (ALT) 17 U/L (7-40) Alkaline Phosphatase 60 U/L (46-116) Troponin I High Sensitivity 213 ng/L (</=34) Total Protein 5.9 g/dL (5.7-8.2) Albumin 4.2 g/dL (3.2-4.8) Vitamin B12 Level 734 pg/mL (211-911) Vitamin D 25-Hydroxy 53.7 ng/mL (30.0-100) Thyroid Stimulating Hormone (TSH) 3.49 uIU/mL (0.55-4.78) Triglycerides Level 214 mg/dL (< 150) Cholesterol Level 176 mg/dL (< 200) LDL Cholesterol 98 mg/dL (< 100) HDL Cholesterol 50 mg/dL (40-59) Test 09/04/24 02:50 Hemoglobin A1c 5.3 % A1C (<5.7) B-Type Natriuretic Peptide 742.92 pg/mL (0-100) Other Laboratory Tests 09/05/24 05:00 Brief Hx & Hospital Course: This is an 79-year-old female with past medical history of hypertension, dyslipidemia, CAD, recent coronary angiogram with 2 GUME placement on 09/03/2024, status post quadruple vessel CABG, ischemic cardiomyopathy with heart failure with reduced ejection fraction of 20%, COPD, GERD, nonobstructive kidney stones, who presented to the ED with chief complaint of nonradiating retrosternal chest pain rated as 10/10 on the pain scale which worsened with cough and reproduces with palpation. The patient also reported associated abdominal tenderness in the right lower quadrant of the abdomen. Patient reported that she got just coronary angiogram at another facility with placement of two stents via groin access. Patient stated that after coronary angiogram she was discharged home but she continued to have chest discomfort reason why she presented to the ED. initial evaluation showed EKG showing right bundle branch block with ventricular paced rhythm no significant changes in the ST segment. Troponins came back slightly elevated at 280. Upon my examination the patient was having chronic cough, mild to moderate shortness of breath requiring 2 L of oxygen through nasal cannula to saturating 97%. Initial chest x-ray showed presence of a pacemaker but no evidence of clear consolidations. Senior It Project Manager was on board I suggested that no need of heart ischemic workup at this time. Today, patient was seen and examined at bedside is currently tolerating 2 L of oxygen through nasal cannula which is her baseline. Patient denies chest pain, shortness of breath or any other associated symptoms at this time. Patient will be [facility]. We will stop Entresto and carvedilol at this time due to episode of hypotension. We will continue spironolactone 25 mg daily and we will start metoprolol succinate 25 mg daily since have less alpha 1 activity. Patient agrees and understands the plan. ROS Constitutional: Denies weight loss, fever and chills. HEENT: Denies changes in vision and hearing. Respiratory: Denies shortness of breath and cough Cardiovascular: Denies chest discomfort or palpitations GI: Denies abdominal pain, nausea, vomiting and diarrhea. : Denies dysuria and urinary frequency. Musculoskeletal: Denies myalgias and joint pain Skin: Denies rash and pruritus. Neurological: Denies dizziness, headache, vision or hearing problems Physical Examination General: Patient alert and oriented in person, place and time. Patient following commands. HEENT: Normocephalic, atraumatic, moist mucous membranes Respiratory/pulmonary: Clear lungs bilaterally, no associated crackles or wheezes. on 2L of O2 which is her baseline Cardiovascular: Normal heart sounds S1 and S2 with no associated murmurs Abdomen: Abdomen nondistended, there is no pain to palpation in any of the abdominal quadrants, no palpable masses. Extremities: There is no peripheral edema present at the lower extremities. Peripheral Pulses: 3+ Radial (R). 3+ Radial (L). 3+ Dorsalis pedis (R). 3+ Dorsalis pedis(L) Skin: No rashes or pruritus, there is no sacral edema present at this time. Neurological: Intact cranial nerves with no focal neurologic deficits Consults/Reason for consult Senior It Project Manager to R/O ACS Operations or Procedures CHEST RADIOGRAPH Indication: cp Technique: Single frontal view of the chest was obtained COMPARISON: XY CHEST PORTABLE on DOS: 07/29/24, XY CHEST PORTABLE on DOS: 07/24/24, XY CHEST PORTABLE on DOS: 07/12/24, XY CHEST PORTABLE on DOS: 06/18/24, XY CHEST PORTABLE on DOS: 05/24/24 FINDINGS: Lines and Tubes: Permanent pacemaker overlies and obscures the lower left chest with atrial, ventricular and coronary sinus wire leads. Lungs: There is poor visualization of the left base which is partially obscured by the pacemaker power pack. Pleura: No effusion. No pneumothorax. Cardiomediastinal contours: Unremarkable Bones: The bones are osteopenic. IMPRESSION: 1. No definite acute cardiopulmonary disease. Poor visualization of the left base may be technical. EXAM: CT Abdomen and Pelvis Without Intravenous Contrast CLINICAL INDICATION: Abdominal pain post PCI, right femoral access TECHNIQUE: Axial computed tomography images of the abdomen and pelvis without intravenous contrast. This CT exam was performed using one or more of the following dose reduction techniques: automated exposure control, adjustment of the mA and/or kV according to patient size, and/or use of iterative reconstruction technique. CONTRAST: RADIATION DOSE: CTDIvol = 9.38 mGy, DLP = 501.94 mGy-cm COMPARISON: CT CT AB PEL WO CON-NO ORAL OR IV on DOS: 07/20/24, CT CT AB PEL WO CON-NO ORAL OR IV on DOS: 04/29/24, CT CT AB PEL WO CON-NO ORAL OR IV on DOS: 03/20/24, CT CT AB PEL WO CON-NO ORAL OR IV on DOS: 03/02/24, CT CT AB PEL WO CON-NO ORAL OR IV on DOS: 02/15/24 FINDINGS: LUNG BASES: Partially visualized lung emphysema. No consolidation. MEDIASTINUM: Small esophageal hiatal hernia. ABDOMEN: LIVER: Hepatomegaly with fatty infiltration. GALLBLADDER AND BILE DUCTS: Unremarkable. No calcified stones. No ductal dilation. PANCREAS: Unremarkable. No ductal dilation. SPLEEN: Unremarkable. No splenomegaly. ADRENALS: Unremarkable. No mass. KIDNEYS AND URETERS: Punctate left nephrolithiasis without hydronephrosis. Left renal cysts. STOMACH AND BOWEL: Fecal retention in the colon consistent with constipation. No obstruction. No mucosal thickening. PELVIS: APPENDIX: No findings to suggest acute appendicitis. BLADDER: Unremarkable. No stones. REPRODUCTIVE: Unremarkable as visualized. ABDOMEN and PELVIS: INTRAPERITONEAL SPACE: Unremarkable. No free air. No significant fluid collection. BONES/JOINTS: Degenerative disc disease throughout the lumbar spine. Degenerative facet arthropathy throughout the lumbar spine, most prominent in the lower lumbar spine. No acute fracture. No dislocation. SOFT TISSUES: Umbilical hernia containing fat. No hematoma of the groins, bilaterally. VASCULATURE: Scattered calcified atherosclerotic disease of aorta. No abdominal aortic aneurysm. LYMPH NODES: Unremarkable. No enlarged lymph nodes. OTHER FINDINGS: . . IMPRESSION: 1. No hematoma of the groins, bilaterally. 2. Small esophageal hiatal hernia. 3. Hepatomegaly with fatty infiltration. 4. Punctate left nephrolithiasis without hydronephrosis. 5. Fecal retention in the colon consistent with constipation. 6. Umbilical hernia containing fat. 7. Degenerative changes lumbar spine as described. BILATERAL Lower Extremity Arterial Duplex Date: 09/04/2024 08:17 AM Clinical History: Rule out pseudoaneurysm Comparison: None Technique: Duplex Doppler evaluation including color Doppler and spectral/pulsed waveform analysis of the lower extremity arteries was performed. Finding: Velocities within normal limits. Biphasic waveforms REFERENCE VALUES, [facility] ([facility]) vascular Imaging Lab Criteria: Peak systolic velocity ranges (in cm/sec) are as follows: <150 cm/s - <20 % stenosis 150-200 cm/s - 20-49% stenosis 200-300 cm/s - 50-75% stenosis >300 cm/s -> 75% stenosis IMPRESSION: There is no evidence for peripheral vascular insufficiency in the right lower extremity. There is no evidence for peripheral vascular insufficiency in the left lower extremity. No significant focal stenosis is identified. Condition at Discharge: Stable Final Diagnosis/Problems List Acute chest pain, Ruled out ACS likely non cardiac Acute hypoxic respiratory failure likely due to COPD exacerbation COPD exacerbation Acute on chronic systolic heart failure (HFrEF 10%) S/P coronary angiogram with 2 GUME placement at [facility] Ruled out DVT/PE Acute abdominal pain likely due to Acute constipation LENORA on CKD Stage IIIB History of coronary artery disease - status post CABG and PCI History of nonobstructive kidney stones symptomatic by chronic back pain Discharge Disposition: Assisted Living Facility Discharge Instruct/Medications Diet: Cardiac 2g Na,low cholest Activity: See Comment Follow Up/Referral: F/U with hr PCP in 1 week Medications: DC entresto and carvedilol due severe hypotension continue spironolactone 25mg daily Start metoprolol succinate 25mg daily Continue rest of medications Discharge Statement: "Patient was advised to return to the ER or call 911 if any headaches, dizziness, shortness of breath, chest pain, abdominal pain, bleeding, fevers, or worsening of medical condition. Patient was counseled about treatment plan, medications, possible side effects, patientverbalized understanding. All questions were answered to the best of my ability. This discharge took greater then 30 minutes in planning, reviewing documentation, counseling the patient, and discussing with other team members." ASSESSMENT ASSESSMENT Assessment Acute chest pain, Ruled out ACS likely non cardiac Acute hypoxic respiratory failure likely due to COPD exacerbation COPD exacerbation Acute on chronic systolic heart failure (HFrEF 10%) S/P coronary angiogram with 2 GUME placement at [facility] Ruled out DVT/PE Acute abdominal pain likely due to Acute constipation LENORA on CKD Stage IIIB History of coronary artery disease - status post CABG and PCI History of nonobstructive kidney stones symptomatic by chronic back pain Date of Service: Sep 06, 2024 Billing Provider: ANGELY BULLOCK MD Common Visit Codes: 48004-DHR/OBS DISCH DAY >30min AXEL CARABALLO RESIDENT Sep 06, 2024 09:57 ANGELY BULLOCK MD Sep 06, 2024 13:01
== END 2024-09-06 11:32 | disposition home or self-care (01) | DRG 280 ==
LOC: EDBD 01:39 → ER 01:39 → OVERFLOW 05:51 → TELE-EAST 16:06
PROVIDERS: ADMIT Student in an Organized Health Care Education/Training Program; ATTEND Emergency Medicine
DX: I13.0 Hypertensive heart and chronic kidney disease with heart failure and stage 1 through stage 4 chronic kidney disease, or unspecified chronic kidney disease (principal); I50.23 Acute on chronic systolic (congestive) heart failure; I21.A1 Myocardial infarction type 2; J96.01 Acute respiratory failure with hypoxia; J44.1 Chronic obstructive pulmonary disease with (acute) exacerbation; N17.9 Acute kidney failure, unspecified; N39.0 Urinary tract infection, site not specified; J98.11 Atelectasis; K59.00 Constipation, unspecified; E78.5 Hyperlipidemia, unspecified; G20.C Parkinsonism, unspecified; F32.A Depression, unspecified; F41.9 Anxiety disorder, unspecified; M10.9 Gout, unspecified; N20.0 Calculus of kidney; J43.9 Emphysema, unspecified; K57.30 Diverticulosis of large intestine without perforation or abscess without bleeding; Z66 Do not resuscitate; I45.10 Unspecified right bundle-branch block; R07.89 Other chest pain; D64.9 Anemia, unspecified; K21.9 Gastro-esophageal reflux disease without esophagitis; G89.29 Other chronic pain; M54.9 Dorsalgia, unspecified; I25.5 Ischemic cardiomyopathy; I25.10 Atherosclerotic heart disease of native coronary artery without angina pectoris; N18.32 Chronic kidney disease, stage 3b; Z95.1 Presence of aortocoronary bypass graft; Z88.1 Allergy status to other antibiotic agents; Z88.5 Allergy status to narcotic agent; Z79.1 Long term (current) use of non-steroidal anti-inflammatories (NSAID); Z79.899 Other long term (current) drug therapy; Z79.891 Long term (current) use of opiate analgesic; Z79.82 Long term (current) use of aspirin; Z90.49 Acquired absence of other specified parts of digestive tract; Z90.710 Acquired absence of both cervix and uterus; Z95.0 Presence of cardiac pacemaker; Z87.891 Personal history of nicotine dependence; Z99.81 Dependence on supplemental oxygen; Z79.02 Long term (current) use of antithrombotics/antiplatelets; Z83.3 Family history of diabetes mellitus; Z82.49 Family history of ischemic heart disease and other diseases of the circulatory system; Z99.3 Dependence on wheelchair; Z87.440 Personal history of urinary (tract) infections; Z87.442 Personal history of urinary calculi; Z86.16 Personal history of COVID-19; Z86.73 Personal history of transient ischemic attack (TIA), and cerebral infarction without residual deficits; Z95.5 Presence of coronary angioplasty implant and graft
CPT/HCPCS: 36415; 71045; 74176; 80048; 80053; 80061; 80307; 81001; 82306; 82607; 83036; 83880; 84443; 84484; 85025; 85610; 85730; 87081; 93005; 93306; 93926; 94640; 96365; 96375; 99292; G0378; J2405

== ENCOUNTER 2024-09-20 03:38 | Inpatient (IN) | payer OTHER, MEDICAID ==
[2024-09-20] VITALS (13 sets, daily range): BP systolic 96–131; BP diastolic 44–69; PULSE 62–78; RESP 11–18; TEMP 98–99.5; O2SAT 88–100
[~2024-09-20] VITALS: Ht 162.6 cm; Wt 76.9 kg
[~2024-09-20 03:38] MED LIST changes: -CARV3.1240 PO; -FOSF3POW PO; -FURO40TA4 PO; -LACTCAP3 PO; +METO25TA93 PO; -PERCOT PO; -PHEN-922 PO; -PRIM50TA5 PO; -SACU1TAB PO
--- NOTE | 2024-09-20 03:59 | ED.PDOC ---
HPI Comments 79-year-old female who came to ER via EMS for chest pains. Per EMS, patient picked up at the assisted care facility. She does have an extensive cardiac history, including hypertension, diabetes, dyslipidemia, mi, congestive heart failure, chronic kidney failure, recurrent UTIs. Status post CABG, cardiac stents, pacemaker insertion. Since 8:00 p.m. last night, patient has been experiencing left-sided chest pains, pressure, constant, 10/10 intensity, radiating to the left shoulder, associated with shortness of breath and cough. 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 Allergies: Coded Allergies: Ceftriaxone (Verified Allergy, Intermediate, generalized rash, 11/08/22) ELECTRIC SPOT WELDERCARLENE MEJIA Hydrocodone (Verified Allergy, Unknown, rash, 05/18/23) tylenol is okay per patient Home Meds Active Scripts Metoprolol Succinate (Metoprolol Succinate Er) 25 Mg Tab, 1 TAB PO DAILY for 30 Days, #30 TAB 5 Refills Prov:AXEL CARABALLO 09/06/24 Spironolactone (Aldactone) 25 Mg Tab, 25 MG PO DAILY for 30 Days, #30 TAB Prov:BHARAT MICHELLE 07/22/24 Oxybutynin Chloride (Oxybutynin Chloride) 5 Mg Tab, 5 MG PO Q8HR for 30 Days, #90 TAB Prov:BHARAT MICHELLE RESIDENT 07/22/24 Atorvastatin Calcium (ATORVASTATIN CALCIUM) 20 Mg Tab, 40 MG PO HS for 30 Days, #60 TAB Prov:BHARAT MICHELLE 07/22/24 Acetaminophen (Acetaminophen) 325 Mg Tab, 650 MG PO TID for 10 Days, #60 TAB Prov:BHARAT MICHELLE RESIDENT 07/22/24 Duloxetine Hydrochloride (Duloxetine Hydrochloride) 30 Mg Cap, 30 MG PO DAILY for 30 Days, #30 CAP Prov:WINSOME GOMEZ MD 04/29/24 Clopidogrel Bisulfate (CLOPIDOGREL) 75 Mg Tab, 75 MG PO DAILY for 30 Days, #30 TAB 5 Refills Prov:YENNY FRAIRE MD 11/26/23 Ranolazine (Ranolazine ER) 500 Mg Tab, 500 MG PO BID for 30 Days, #60 TAB 2 Refills Prov:MAGAN RUSS RESIDENT 09/16/23 Reported Medications Polyethylene Glycol 3350 (Miralax) 17 Gm Pow, 17 GM PO DAILY PRN for FOR CONSTIPATION for 30 Days, #30 01/28/24 Ipratropium-Albuterol (Ipratropium [place]/Albut) 1 Yuli Yuli, 1 VIAL NEB Q6HPRN PRN for SHORTNESS OF BREATH for 13 Days, #180 09/05/23 Fluticasone-Salmeterol (Fluticasone Propionate/SA 250-50 Mcg/Dose) 1 Aer Aer, 1 PUFF INH BID for 30 Days, #60 09/05/23 Albuterol Sulfate (Albuterol Sulfate Hfa) 108 Mcg/Act Aer, 2 PUFF INH Q4HPRN PRN for dyspnea for 17 Days, #18 09/05/23 Cholecalciferol (VITAMIN D3) 2,000 Unit Tab, 1 TAB PO BID for 30 Days, #60 08/28/23 Multiple Vitamin (Tab-A-Radha) Tab, 1 TAB PO DAILY for 30 Days, #30 08/28/23 Aspirin (Aspir-Low) 81 Mg Tab, 1 TAB PO DAILY for 30 Days, #30 24 Ascorbic Acid (VITAMIN C TABLET) 500 Mg Tb, 1 TAB PO BID for 30 Days, #60 05/18/23 Pantoprazole Sodium Sesquihydr (Pantoprazole Sodium) 40 Mg Tab, 1 TAB PO DAILY 05/18/23 Fluoxetine HCl (Pmdd) (Fluoxetine HCl) 20 Mg Tab, 20 MG PO DAILY, TAB 05/30/20 Information Source: Patient, Emergency Med Personnel Mode of Arrival: EMS Severity: Moderate Timing: Hours Duration: Since onset Prehospital treatment: 12 Lead EKG, Accucheck, Oxygen Location: Chest (L) Radiation: Shoulder (L) Quality: Pressure Onset: At Rest Past Medical History PAST MEDICAL HISTORY: Anemia, Anxiety, Asthma, CAD, CHF, COPD, Depression, GERD, Gout, High Lipids, HTN, Kidney Stones, [place], UTI'S Surgical History: Appendectomy, CABG, Hysterectomy, Pacemaker, PTCA, 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 History: Ovarian Cysts Family History Family History: Reviewed,noncontributory to illness, Unknown Social History Smoker: Non-Smoker Alcohol: Denies ETOH Use Drugs: Denies Drug Use Lives In: Assisted Care Constitutional: reports: fatigue, weakness; denies: chills, diaphoresis, fever, malaise, sweats, others EENTM: denies: blurred vision, double vision, ear bleeding, ear discharge, ear drainage, ear pain, ear ringing, eye pain, eye redness, hearing loss, mouth pain, mouth swelling, nasal discharge, nose bleeding, nose congestion, nose pain, photophobia, tearing, throat pain, throat swelling, voice changes, others Respiratory: reports: cough, SOB at rest, shortness of breath, SOB with excertion; denies: hemoptysis, orthopnea, stridor, wheezing, others Cardiovascular: reports: chest pain, dizzy spells; denies: diaphoresis, Dyspnea on exertion, edema, irregular heart beat, left arm pain, lightheadedness, palpitations, PND, syncope, others Gastrointestinal: denies: abdomen distended, abdominal pain, blood streaked bowels, constipated, diarrhea, dysphagia, difficulty swallowing, hematemesis, melena, nausea, poor appetite, poor fluid intake, rectal bleeding, rectal pain, vomiting, others Genitourinary: denies: abnormal vagina bleeding, burning, dyspareunia, dysuria, flank pain, frequency, hematuria, incontinence, pain, , vagina discharge, urgency, others Neurological: denies: dizziness, fainting, headache, left sided numbness, left sided weakness, numbness, paresthesia, pre-existing deficit, right sided numbness, right sided weakness, seizure, speech problems, tingling, tremors, weakness, others Musculoskeletal: denies: back pain, gout, joint pain, joint swelling, muscle pain, muscle stiffness, neck pain, others Integumetry: denies: bruises, change in color, change in hair/nails, dryness, laceration, lesions, lumps, rash, wounds, others Allergic/Immunocompromised: denies: Difficulty Healing, Frequent Infections, Hives, Itching, others Hematologic/Lymphatic: denies: anemia, blood clots, easy bleeding, easy bruising, swollen glands, others Endocrine: denies: excessive hunger, excessive sweating, excessive thirst, excessive urination, flushing, intolerance to cold, intolerance to heat, unexplained weight gain, unexplained weight loss, others Psychiatric: denies: anxiety, bipolar disorder, depression, hopeless, panic disorder, schizophrenia, sleepless, suicidal, others Physical Exam General Appearance: No Apparent Distress, Normal HEENT: Normal ENT Inspection, Pharynx Normal, TMs Normal Neck: Full Range of Motion, Non-Tender, Normal, Normal Inspection Respiratory: Chest Non-Tender, Lungs Clear, No Accessory Muscle Use, No Respiratory Distress, Normal Breath Sounds Cardiovascular: No Edema, No JVD, No Murmur, No Gallop, Normal Peripheral Pulses, Regular Rate/Rhythm Breast Exam: Deferred Gastrointestinal: No Organomegaly, Non Tender, No Pulsatile Mass, Normal Bowel Sounds, Soft Genitalia: Deferred Pelvic: Deferred Rectal: Deferred Extremities: No calf tenderness, Normal capillary refill, Normal inspection, Normal range of motion, Non-tender, No pedal edema Musculoskeletal : Apperance: Normal Neurologic: Alert, senior c developer II-XII nml as Tested, No Motor Deficits, Normal Affect, Normal Mood, No Sensory Deficits Cerebellar Function: Normal Reflexes: Normal Skin: Dry, Normal Color, Warm Lymphatic: No Adenopathy EKG EKG : Pulse Rate (adult): 74 Cardiac Rhythm: Paced Was a procedure done? Was a procedure done?: No CP Differential Dx Differential Diagnosis: Angina, Anxiety / Panic Attack Differential Diagnosis: CHF Differential Diagnosis: Angina, Chest Wall Pain, Costochondritis, Esophageal reflux/spasm, Gastritis, Myocardial Infarction, Pneumonia X-Ray, Labs, Meds, VS Vital Signs Date Time Temp Pulse Resp B/P (MAP) Pulse Ox O2 Delivery O2 Flow Rate FiO2 09/20/24 04:32 62 18 121/67 (85) 95 09/20/24 03:59 74 09/20/24 03:47 74 09/20/24 03:40 99.3 74 24 125/71 (89) 99 99.3 Lab Test 09/20/24 05:27 Range/Units White Blood Count Pending Red Blood Count Pending Hemoglobin Pending Hematocrit Pending Mean Corpuscular Volume Pending Mean Corpuscular Hemoglobin Pending Mean Corpuscular Hemoglobin Concent Pending Red Cell Distribution Width Pending Platelet Count Pending Mean Platelet Volume Pending Neutrophils (%) (Auto) Pending Lymphocytes (%) (Auto) Pending Monocytes (%) (Auto) Pending Basophils (%) (Auto) Pending Neutrophils # (Auto) Pending Lymphocytes # (Auto) Pending Monocytes # (Auto) Pending Prothrombin Time Pending Prothrombin Time INR Pending Activated Partial Thromboplast Time Pending Sodium Level Pending Potassium Level Pending Chloride Level Pending Carbon Dioxide Level Pending Anion Gap Pending Blood Urea Nitrogen Pending Creatinine Pending Glomerular Filtration Rate Calc Pending BUN/Creatinine Ratio Pending Serum Glucose Pending Calcium Level Pending Magnesium Level Pending Total Bilirubin Pending Aspartate Amino Transferase (AST) Pending Alanine Aminotransferase (ALT) Pending Alkaline Phosphatase Pending Troponin I High Sensitivity Pending Total Protein Pending Albumin Pending Time of 1ST Reevaluation: 03:53 Reevaluation 1ST: Unchanged Patient Education/Counseling: Diagnosis, Treatment Family Education/Counseling: No Family Present Departure 1 Departure Time of Disposition: 05:56 Impression: Primary Impression: Acute coronary syndrome Disposition: 09 ADMITTED INPATIENT Admit to: Tele Condition: Guarded Comments 79-year-old Female with Chest Pain Chief Complaint: Chest pain History of Present Illness: Patient is an 79-year-old female presenting with chest pain for the past one day. She has significant cardiac history including prior CABG and cardiac stents. Prior to arrival, patient self-administered aspirin. Her presentation is concerning given multiple cardiovascular risk factors including hypertension, hypercholesterolemia, and type 2 diabetes mellitus. Medications: Medication list not provided in roll hand Patient took aspirin prior to arrival Allergies: No known allergies documented Past Medical History: 1. Hypertension 2. Hypercholesterolemia 3. Type 2 Diabetes Mellitus 4. Coronary Artery Disease Past Surgical History: 1. Coronary Artery Bypass Graft (CABG) 2. Cardiac stent placement Physical Exam: Physical examination findings not provided in roll hand Lab Results: CBC: Unremarkable Chemistry panel: Pending Imaging and Other Relevant Results: No imaging results documented in roll hand Medical Decision Making: Summary Statement: 79-year-old female with significant cardiac history presenting with acute chest pain and multiple cardiovascular risk factors. Problem List: 1. Acute chest pain 2. Known CAD with prior CABG and stents 3. Hypertension 4. Hypercholesterolemia 5. Type 2 Diabetes Differential Diagnosis: 1. Acute Coronary Syndrome 2. Unstable Angina 3. NSTEMI 4. STEMI 5. Chest wall pain ED Course: Patient presented with chest pain, took aspirin prior to arrival. Initial labs show unremarkable CBC with chemistry pending. Given multiple risk factors and cardiac history, decision made to admit for acute coronary syndrome workup. Assessment and Plan: 1. Acute Chest Pain/Suspected Acute Coronary Syndrome: - Admit to hospital for further evaluation and management - Continue cardiac monitoring - Await pending chemistry results including cardiac enzymes - Cardiology consultation 2. Chronic Medical Conditions (HTN, HLD, DM): - Continue home medications - Monitor during admission Billing Information: ICD-10: R07.9 - Chest pain, unspecified ICD-10: I25.10 - Atherosclerotic heart disease of [place] coronary artery ICD-10: Z95.1 - Presence of cardiac stents ICD-10: Z95.5 - Presence of coronary artery bypass graft Critical Care Note Critical Care Time?: Yes (45 min-critical care time only) Critical care comment: Active chest pains Total critical care time: Approximately 36 minutes Due to a high probability of clinically significant, life threatening deterioration, the patient required my highest level of preparedness to intervene emergently and I personally spent this critical care time directly and personally managing the patient. This critical care time included obtaining a history; examining the patient; pulse oximetry; ordering and review of studies; arranging urgent treatment with development of a management plan; evaluation of patient's response to treatment; frequent reassessment; and, discussions with other providers. This critical care time was performed to assess and manage the high probability of imminent, life-threatening deterioration that could result in multi-organ failure. It was exclusive of separately billable procedures and treating other patients. Stability Stability form required: No Heart Score Heart Score: Heart Score Response (Comments) Value History Highly Suspicious 2 EKG Repolarization Disturb 1 Age >65 2 Risk Factors >3 or Hx ASHD 2 Troponin Normal limit 0 Total 7 I personally scribed for DESTINEE KYLE MD ([email or web address]) on 09/20/24 at 03:59. Electronically submitted by Rogelio Rdz ([email or web address]). DESTINEE KYLE MD Sep 20, 2024 03:59
--- NOTE | 2024-09-20 04:59 | DVH ---
CHEST RADIOGRAPH Indication: chest pain Technique: Single frontal view of the chest was obtained COMPARISON: XY CHEST XRAY 1 VIEW on DOS: 09/04/24, XY CHEST PORTABLE on DOS: 07/29/24, XY CHEST PORTABLE on DOS: 07/24/24, XY CHEST PORTABLE on DOS: 07/12/24, XY CHEST PORTABLE on DOS: 06/18/24 FINDINGS: Lines and Tubes: Left anterior chest wall cardiac pacing device. Median sternotomy sutures noted. Lungs: Clear Pleura: No effusion. No pneumothorax. Cardiomediastinal contours: Unremarkable Bones: Unremarkable IMPRESSION: 1. No acute disease.
[2024-09-20 05:52] LABS: Basophils # (auto) 0 10 ^3/uL (0-0.2); Basophils % (auto) 0.4 % (0.0-2.0); Eosinophils # (auto) 0.3 10 ^3/uL (0-0.8); Eosinophils % (auto) 3.4 % (0.0-7.0); Hematocrit 39.3 % (36.0-46.0); Lymphocytes # (auto) 1.1 10 ^3/uL (0.4-5.4); Lymphocytes % (auto) 14.5 % (10.0-50.0); Mean Corpuscular Hemoglobin 29.2 pg (28.0-32.0); Mean Corpuscular Hgb Conc. 33.1 g/dL (32.0-36.0); Mean Corpuscular Volume 88.1 fL (80.0-100.0); Monocytes # (auto) 0.8 10 ^3/uL (0-1.3); Monocytes % (auto) 10.7 % (0.0-12.0); Neutrophils # (auto) 5.4 10 ^3/uL (1.6-8.6); Platelet Count (auto) 242 10^3/uL (140-450); Red Blood Cells 4.45 10^6/uL (4.0-5.20); Red Cell Distribution Width 15.9 % (11.8-14.3); White Blood Cell 7.6 10^3/uL (4.4-10.8)
[2024-09-20 06:03] LABS: INR 1.06 (0.9-1.15); Partial Thromboplastin Time 28.3 SEC (24.5-34.5); Prothrombin Time 11.2 sec (9.3-11.8)
[2024-09-20 06:08] LABS: Alanine Aminotransferase 13 U/L (7-40); Albumin 4.2 g/dL (3.2-4.8); Alkaline Phosphatase 74 U/L (46-116); Anion Gap 6 (5-15); Aspartate Aminotransferase 13 U/L (13-40); Blood Urea Nitrogen 23 mg/dL (9-23); Calcium 10.1 mg/dL (8.7-10.4); Carbon Dioxide 28 mmol/L (20-31); Chloride 107 mmol/L (98-107); Glucose 92 mg/dL (74-106); Magnesium 2.2 mg/dL (1.6-2.6); Potassium 4.4 mmol/L (3.5-5.1); Sodium 141 mmol/L (136-145); Total Protein 6.3 g/dL (5.7-8.2)
[2024-09-20 06:09] LABS: Bilirubin, Total 0.9 mg/dL (0.2-1.0)
[2024-09-20] MEDS: OXYCODONE W/ ACETAMINOPHEN 5/325MG TABLET PO ONE (06:09)
[2024-09-20] MEDS ORDERED: ALBUTEROL SULF 2.5 MG/0.5ML(0.5%) NEB SOLN NEB PRN (07:00)
[2024-09-20] MEDS ORDERED: ACETAMINOPHEN 325 MG TAB PO PRN (07:00)
[2024-09-20] MEDS ORDERED: NITROGLYCERIN 0.4 MG SL TAB SL PRN (07:00)
[2024-09-20] MEDS ORDERED: IPRATROPIUM BROM 0.5 MG/2.5ML INH SOL NEB PRN (07:00)
[2024-09-20] MEDS ORDERED: MORPHINE SULFATE INJ 2 MG/ml SYRG IV PRN (07:00)
[2024-09-20 07:02] LABS: Urine Bacteria FEW /hpf (None Seen); Urine Blood Negative /uL (Negative); Urine Clarity Turbid (Clear); Urine Color Yellow (Yellow); Urine Protein, UAD 1+ (Negative); Urine Specific Gravity 1.025 (1.001-1.035); Urine Squamous Epithelial Cell MOD /hpf (<5); Urine Urobilinogen Normal (Negative); Urine WBC 25 /HPF (0-5); Urine pH 7.5 (5.0-9.0)
--- NOTE | 2024-09-20 07:04 | DVHHP2 ---
History of Present Illness Reason for Visit: Chest pain History of Present Illness This 79 year old female with significant cardiac history including CAD s/p CABG, multiple MIs with recent stents placement, presented to the ED via EMS with a chief complaint of chest pains. Patient reports recently undergone a left heart catheterization s/p PCI at [place], reports has not been able to take her medications due being discontinued by her previous doctor. The patient states chest sharp and pressure nonradiating pain started last night. She denies dizziness, diaphoresis, chest palpitations, shortness of breaths, abdominal pain, or history of bleeding. Other past medical history includes Anemia, Anxiety, Asthma, CAD, CHF, EF 10%, COPD, Depression, GERD, Gout, High Lipids, HTN, Kidney Stones, [place], UTI'S, PPM, CABG. Past Medical History As stated in HPI Past Surgical History CABG PTCA PPM Appendectomy 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 Family History Reviewed, non-contributory to the management of this case. Past Social History The patient resides in a nursing facility denies smoking, alcohol or illicit drugs abuse. Review of Systems Constitutional: Yes: Malaise; No: Fever, Chills, Sweats, Weakness, Other Eyes: No: Pain, Vision change, Conjunctivae inflammation, Eyelid inflammation, Other, Redness ENT: No: Ear pain, Ear discharge, Nose pain, Nose discharge, Nose congestion, Mouth pain, Mouth swelling, Throat pain, Throat swelling, Other Respiratory: Cough, Dry; No: Shortness of breath, SOB with excertion, Wheezing, Hemoptysis, Pleuritic Pain, Sputum, Wheezing, Other Cardiovascular: Chest Pain, Paroxysmal Noc. Dyspnea; No: Palpitations, Orthopnea, Edema, Lt Headedness, Other Gastrointestinal: No: Nausea, Vomiting, Abdominal Pain, Diarrhea, Constipation, Melena, Hematochezia, Other Genitourinary: No Dysuria, No Frequency, No Incontinence, No Hematuria, No Retention, No Other Musculoskeletal: No: other, neck pain, shoulder pain, arm pain, back pain, hand pain, leg pain, foot pain Skin: No: Rash, Lesions, Jaundice, Bruising, Other Neurological: No: Weakness, Numbness, Incoordination, Change in speech, Confusion, Seizures, Other Allergies: Coded Allergies: Ceftriaxone (Verified Allergy, Intermediate, generalized rash, 11/08/22) NURSE INFORMATICISTCARLENE MEJIA Hydrocodone (Verified Allergy, Unknown, rash, 05/18/23) tylenol is okay per patient Exam Vital Signs Vital Signs Date Time Temp Pulse Resp B/P (MAP) Pulse Ox O2 Delivery O2 Flow Rate FiO2 09/20/24 06:00 65 18 126/52 (76) 97 09/20/24 04:32 99.5 99.5 09/20/24 04:30 Nasal Cannula* 3 32 General Appearance: Alert, Oriented X3, Cooperative, mild distress HEENT: Atraumatic, PERRLA, EOMI, Mucous membr. moist/pink Respiratory: Clear to auscultation, Normal air movement Cardiovascular: Other (Paced) Abdominal: Normal bowel sounds, Soft Extremities: No clubbing, No cyanosis, No edema, Normal pulses Skin: No breakdown, No significant lesion Neuro: Normal speech Psych/Mental Status: Mental status NL Labs/Xrays Labs Test 09/20/24 06:46 09/20/24 05:27 Range/Units Urine Color Yellow Yellow Urine Clarity Turbid H Clear Urine pH 7.5 5.0-9.0 Urine Specific [place] 1.025 1.001-1.035 Urine Protein 1+ H Negative Urine Ketones Negative Negative Urine Blood Negative Negative /uL Urine Nitrite Negative Negative Urine Bilirubin Negative Negative Urine Urobilinogen Normal Negative mg/dL Urine Leukocyte Esterase 3+ Negative /uL Urine RBC 11 0 - 4 /hpf Urine Microscopic WBC 25 H 0-5 /HPF Urine Squamous Epithelial Cells Mod <5 /hpf Urine Bacteria Few H None Seen /hpf Urine Glucose Normal Normal mg/dL White Blood Count 7.6 4.4-10.8 10^3/uL Red Blood Count 4.45 4.0-5.20 10^6/uL Hemoglobin 13.0 12.2-16.2 g/dL Hematocrit 39.3 36.0-46.0 % Mean Corpuscular Volume 88.1 80.0-100.0 fL Mean Corpuscular Hemoglobin 29.2 28.0-32.0 pg Mean Corpuscular Hemoglobin Concent 33.1 32.0-36.0 g/dL Red Cell Distribution Width 15.9 H 11.8-14.3 % Platelet Count 242 140-450 10^3/uL Mean Platelet Volume 7.9 6.9-10.8 fL Neutrophils (%) (Auto) 71.0 37.0-80.0 % Lymphocytes (%) (Auto) 14.5 10.0-50.0 % Monocytes (%) (Auto) 10.7 0.0-12.0 % Eosinophils (%) (Auto) 3.4 0.0-7.0 % Basophils (%) (Auto) 0.4 0.0-2.0 % Neutrophils # (Auto) 5.4 1.6-8.6 10 ^3/uL Lymphocytes # (Auto) 1.1 0.4-5.4 10 ^3/uL Monocytes # (Auto) 0.8 0-1.3 10 ^3/uL Eosinophils # (Auto) 0.3 0-0.8 10 ^3/uL Basophils # (Auto) 0 0-0.2 10 ^3/uL Nucleated Red Blood Cells 0.0 % Prothrombin Time 11.2 9.3-11.8 sec Prothrombin Time INR 1.06 0.9-1.15 Activated Partial Thromboplast Time 28.3 24.5-34.5 SEC Sodium Level 141 136-145 mmol/L Potassium Level 4.4 3.5-5.1 mmol/L Chloride Level 107 98-107 mmol/L Carbon Dioxide Level 28 20-31 mmol/L Anion Gap 6 5-15 Blood Urea Nitrogen 23 9-23 mg/dL Creatinine 1.00 0.550-1.02 mg/dL Glomerular Filtration Rate Calc 57 >90 mL/min BUN/Creatinine Ratio 23.0 H 10.0-20.0 Serum Glucose 92 74-106 mg/dL Calcium Level 10.1 8.7-10.4 mg/dL Magnesium Level 2.2 1.6-2.6 mg/dL Total Bilirubin 0.9 0.2-1.0 mg/dL Aspartate Amino Transferase (AST) 13 13-40 U/L Alanine Aminotransferase (ALT) 13 7-40 U/L Alkaline Phosphatase 74 46-116 U/L Troponin I High Sensitivity 25 </=34 ng/L Total Protein 6.3 5.7-8.2 g/dL Albumin 4.2 3.2-4.8 g/dL PROCEDURE(s): CXRP - CHEST PORTABLE REASON: chest pain ORDER NUMBER(s): [id number], ACCESSION NUMBER(s): [id number] CHEST RADIOGRAPH Indication: chest pain Technique: Single frontal view of the chest was obtained COMPARISON: XY CHEST XRAY 1 VIEW on DOS: 09/04/24, XY CHEST PORTABLE on DOS: 07/29/24, XY CHEST PORTABLE on DOS: 07/24/24, XY CHEST PORTABLE on DOS: 07/12/24, XY CHEST PORTABLE on DOS: 06/18/24 FINDINGS: Lines and Tubes: Left anterior chest wall cardiac pacing device. Median sternotomy sutures noted. Lungs: Clear Pleura: No effusion. No pneumothorax. Cardiomediastinal contours: Unremarkable Bones: Unremarkable IMPRESSION: 1. No acute disease. Assessment/Plan Assessment/Plan # chest pain to rule out progressive CAD # CAD s/p CABG, including recent cardiac stents # HFrEF 10%, NYHA IV # Presence of PPM Admit to telemetry unit Chest pain protocol Continue with dual antiplatelets aspirin and Plavix Continue ranolazine Metoprolol Cardiology consult with Dr Mercado Monitor troponin and telemetry Daily weight, strict I & O # hypertension Spironolactone Metoprolol Hydralazine as needed # dyslipidemia Statins # COPD on O2 DuoNeb O2 supplement # GERD PPI # anxiety and depression Duloxetine # acute uti with hx of recurrent UTIs # urinary incontinence, overactive bladder Empiric antibiotic UA positive nitrates Oxybutynin Medical plan discussed with patient and RN Plan discussed with: Patient My Orders Orders - MARIO LOCKWOODP Procedure Category Date Status Time Admit ADMIT 09/20/24 Verified 06:57 Code Status CODE 09/20/24 Verified 06:57 Ondansetron Hcl PHA 09/20/24 Verified (Zofran) 07:00 Fall Risk Precautions [facility] 09/20/[address] 06:57 Complete Blood Count LAB 09/21/24 Verified 04:00 Comprehensive LAB 09/21/24 Verified Metabolic Panel 04:00 Cardiac DIET 09/20/24 Verified Diet-2gna,Lofat,Lochol Breakfast Condition: Fair AME 09/20/24 Verified 06:57 Acetaminophen Tablet PHA 09/20/24 Verified (Tylenol Tablet) 07:00 Morphine Sulfate PHA 09/20/24 Verified Injection 07:00 Nitroglycerin PHA 09/20/24 Verified Sublingual (Ntrostat 07:00 Morphine Sulfate PHA 09/20/24 Verified Injection 07:00 Stat Ekg For Chest [facility] 09/20/24 Verified Pain 06:57 Notify Of Changes [facility] 09/20/24 Verified From Base 06:57 Java [employer] For [facility] 09/20/24 Verified 24 Hours 06:57 Emergency Dysrhythmia [facility] 09/20/24 Verified Protocol 06:57 Rhythm Strips Once [facility] 09/20/24 Verified Every Shift 06:57 Oxygen By Nasal RT 09/20/24 Verified Cannula 06:57 *Cons[address] Dr[address] Dominique CONS 09/20/24 Verified Rogelio 06:57 Aspirin Enteric PHA 09/20/24 Verified Coated Tablet 10:00 Atorvastatin (Lipitor) [facility] 09/20/24 Verified 22:00 Clopidogrel Bisulfate PHA 09/20/24 Verified (Plavix) 10:00 Duloxetine Hcl [facility] 09/20/24 Verified Capsule (Cymbalta 10:00 Date of Service: Sep 20, 2024 Billing Provider: MARIO LOCKWOOD Common Visit Codes: [id number] INP/OBS CARE (HIGH) MARIO LOCKWOOD Sep 20, 2024 07:04
--- NOTE | 2024-09-20 07:34 | ECG ---
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
[2024-09-20] MEDS ORDERED: AZTREONAM 1GM INJ 1 GM in D5W 5% 50 ML IV SCH ×2 (08:30→22:00)
[2024-09-20] MEDS ORDERED: hydrALAZINE HCL 20 MG/ML VL IV PRN (08:30)
[2024-09-20] MEDS: ONDANSETRON HCL 4 MG/2 ML VIAL IV ONE (08:36)
[2024-09-20] MEDS: MORPHINE SULFATE 4 MG/ML SYR/VIAL IV ONE (08:36)
--- NOTE | 2024-09-20 09:37 | DVHINCON2 ---
Date of service: Sep 20, 2024 History of Present Illness HPI Patient is a 79-year-old female who presented to the hospital with chest discomfort. She mentions that she was in another facility recently and they stopped all her usual medications. She mentions and she started having some chest discomfort and decided to come to the hospital to restart back her usual medications. Cardiology is involved for cardiac aspects of care. Patient is known to our practice from before and outside. Home Meds Active Scripts Metoprolol Succinate (Metoprolol Succinate Er) 25 Mg Tab, 1 TAB PO DAILY for 30 Days, #30 TAB 5 Refills Prov:AXEL CARABALLO RESIDENT 09/06/24 Spironolactone (Aldactone) 25 Mg Tab, 25 MG PO DAILY for 30 Days, #30 TAB Prov:BHARAT MICHELLE RESIDENT 07/22/24 Oxybutynin Chloride (Oxybutynin Chloride) 5 Mg Tab, 5 MG PO Q8HR for 30 Days, #90 TAB Prov:BHARAT MICHELLE RESIDENT 07/22/24 Atorvastatin Calcium (ATORVASTATIN CALCIUM) 20 Mg Tab, 40 MG PO HS for 30 Days, #60 TAB Prov:BHARAT MICHELLE RESIDENT 07/22/24 Acetaminophen (Acetaminophen) 325 Mg Tab, 650 MG PO TID for 10 Days, #60 TAB Prov:BHARAT MICHELLE RESIDENT 07/22/24 Duloxetine Hydrochloride (Duloxetine Hydrochloride) 30 Mg Cap, 30 MG PO DAILY for 30 Days, #30 CAP Prov:WINSOME GOMEZ MD 04/29/24 Clopidogrel Bisulfate (CLOPIDOGREL) 75 Mg Tab, 75 MG PO DAILY for 30 Days, #30 TAB 5 Refills Prov:YENNY FRAIRE MD 11/26/23 Ranolazine (Ranolazine ER) 500 Mg Tab, 500 MG PO BID for 30 Days, #60 TAB 2 Refills Prov:MAGAN RUSS RESIDENT 09/16/23 Reported Medications Polyethylene Glycol 3350 (Miralax) 17 Gm Pow, 17 GM PO DAILY PRN for FOR CONSTIPATION for 30 Days, #30 01/28/24 Ipratropium-Albuterol (Ipratropium Ovid/Albut) 1 Yuli Yuli, 1 VIAL NEB Q6HPRN PRN for SHORTNESS OF BREATH for 13 Days, #180 09/05/23 Fluticasone-Salmeterol (Fluticasone Propionate/SA 250-50 Mcg/Dose) 1 Aer Aer, 1 PUFF INH BID for 30 Days, #60 09/05/23 Albuterol Sulfate (Albuterol Sulfate Hfa) 108 Mcg/Act Aer, 2 PUFF INH Q4HPRN PRN for dyspnea for 17 Days, #18 09/05/23 Cholecalciferol (VITAMIN D3) 2,000 Unit Tab, 1 TAB PO BID for 30 Days, #60 08/28/23 Multiple Vitamin (Tab-A-Radha) Tab, 1 TAB PO DAILY for 30 Days, #30 08/28/23 Aspirin (Aspir-Low) 81 Mg Tab, 1 TAB PO DAILY for 30 Days, #30 08/28/23 Ascorbic Acid (VITAMIN C TABLET) 500 Mg Tb, 1 TAB PO BID for 30 Days, #60 05/18/23 Pantoprazole Sodium Sesquihydr (Pantoprazole Sodium) 40 Mg Tab, 1 TAB PO DAILY 05/18/23 Fluoxetine HCl (Pmdd) (Fluoxetine HCl) 20 Mg Tab, 20 MG PO DAILY, TAB 05/30/20 Past Medical History Others Past medical history includes hypertension, hyperlipidemia, coronary artery disease, history of CABG (2010), systolic heart failure, ischemic cardiomyopathy, gout, kidney stone, s/p ESWL, frequent UTI, history of CVA, Diverticulosis, COPD, s/p COVID, depression, Anxiety, GERD, history of appendectomy/hysterectomy/tonsillectomy, and history of BiV ICD (Biotronik) implantation. She is chronically wheelchair-bound. She was previously in hospice for heart failure. She is allergic to codeine. She quit smoking years ago. She is DNR. She also has diagnosis of parkinsonism. Family History: CAD Patient Family History: Arthritis Cardiovascular disease G8 MOTHER, Onset:Unknown Cerebrovascular accident (CVA) G8 FATHER Coronary artery disease G8 MOTHER, Onset:Unknown FH: diabetes mellitus G8 MOTHER, Onset:Unknown FH: heart disease G8 MOTHER, Onset:Unknown FH: hypertension G8 MOTHER, Onset:Unknown FH: lupus 19 CHILD FH: myocardial infarction G8 MOTHER, Onset:Unknown Family history: Cardiovascular disease G8 MOTHER, Onset:Unknown G8 FATHER, Onset:Unknown Glaucoma G8 MOTHER, Onset:Unknown Smoker: Quit Alocohol: None Drugs: None Lives with: [facility] Review of Systems Pulmonary/Respiratory: Cough Cardiovascular: Chest Pain Gastrointestinal: Abdominal Pain All Other Systems Fourteen point review of system was performed. Relevant findings as per above and as per HPI. Otherwise negative. H&P Exam Vital Signs Vital Signs Date Time Temp Pulse Resp B/P (MAP) Pulse Ox O2 Delivery O2 Flow Rate FiO2 09/20/24 08:36 63 11 131/69 09/20/24 08:36 99.5 92 2.0 28 99.5 09/20/24 04:30 Nasal Cannula* General Appeara: Well developed Head Exam: Normal inspection Eye Exam: bilateral eye PERRL Nasal Exam: Normal inspection Mouth: Normal Inspection Pulmonary/Respiratory: Lungs clear Cardiovascular/Chest: Regular rate, Systolic murmur, Gallop S3 Peripheral Pulses: 2+ carotid (R), 2+ carotid (L), 2+ femoral (R), 2+ femoral (L), 2+ dorsalis pedis (R), 2+ dorsalis pedis (L), 2+ Radial (R), 2+ Radial (L) Abdominal Exam: Normal bowel sounds, Soft Neuro/Mental St: Alert, Oriented Appearance: Appropriate appearance Eye contact/ Speech: Cooperative Labs/Xrays Labs Test 09/20/24 07:30 09/20/24 06:46 09/20/24 05:27 Range/Units Troponin I High Sensitivity 25 </=34 ng/L Urine Color Yellow Yellow Urine Clarity Turbid H Clear Urine pH 7.5 5.0-9.0 Urine Specific [place] 1.025 1.001-1.035 Urine Protein 1+ H Negative Urine Ketones Negative Negative Urine Blood Negative Negative /uL Urine Nitrite Negative Negative Urine Bilirubin Negative Negative Urine Urobilinogen Normal Negative mg/dL Urine Leukocyte Esterase 3+ Negative /uL Urine RBC 11 0 - 4 /hpf Urine Microscopic WBC 25 H 0-5 /HPF Urine Squamous Epithelial Cells Mod <5 /hpf Urine Bacteria Few H None Seen /hpf Urine Glucose Normal Normal mg/dL White Blood Count 7.6 4.4-10.8 10^3/uL Red Blood Count 4.45 4.0-5.20 10^6/uL Hemoglobin 13.0 12.2-16.2 g/dL Hematocrit 39.3 36.0-46.0 % Mean Corpuscular Volume 88.1 80.0-100.0 fL Mean Corpuscular Hemoglobin 29.2 28.0-32.0 pg Mean Corpuscular Hemoglobin Concent 33.1 32.0-36.0 g/dL Red Cell Distribution Width 15.9 H 11.8-14.3 % Platelet Count 242 140-450 10^3/uL Mean Platelet Volume 7.9 6.9-10.8 fL Neutrophils (%) (Auto) 71.0 37.0-80.0 % Lymphocytes (%) (Auto) 14.5 10.0-50.0 % Monocytes (%) (Auto) 10.7 0.0-12.0 % Eosinophils (%) (Auto) 3.4 0.0-7.0 % Basophils (%) (Auto) 0.4 0.0-2.0 % Neutrophils # (Auto) 5.4 1.6-8.6 10 ^3/uL Lymphocytes # (Auto) 1.1 0.4-5.4 10 ^3/uL Monocytes # (Auto) 0.8 0-1.3 10 ^3/uL Eosinophils # (Auto) 0.3 0-0.8 10 ^3/uL Basophils # (Auto) 0 0-0.2 10 ^3/uL Nucleated Red Blood Cells 0.0 % Prothrombin Time 11.2 9.3-11.8 sec Prothrombin Time INR 1.06 0.9-1.15 Activated Partial Thromboplast Time 28.3 24.5-34.5 SEC Sodium Level 141 136-145 mmol/L Potassium Level 4.4 3.5-5.1 mmol/L Chloride Level 107 98-107 mmol/L Carbon Dioxide Level 28 20-31 mmol/L Anion Gap 6 5-15 Blood Urea Nitrogen 23 9-23 mg/dL Creatinine 1.00 0.550-1.02 mg/dL Glomerular Filtration Rate Calc 57 >90 mL/min BUN/Creatinine Ratio 23.0 H 10.0-20.0 Serum Glucose 92 74-106 mg/dL Calcium Level 10.1 8.7-10.4 mg/dL Magnesium Level 2.2 1.6-2.6 mg/dL Total Bilirubin 0.9 0.2-1.0 mg/dL Aspartate Amino Transferase (AST) 13 13-40 U/L Alanine Aminotransferase (ALT) 13 7-40 U/L Alkaline Phosphatase 74 46-116 U/L B-Type Natriuretic Peptide 901.00 0-100 pg/mL Total Protein 6.3 5.7-8.2 g/dL Albumin 4.2 3.2-4.8 g/dL Assessment/Plan Plan Patient is a 79-year-old female who presented to the hospital with chest discomfort. She mentions that she was in another facility recently and they stopped all her usual medications. She mentions and she started having some chest discomfort and decided to come to the hospital to restart back her usual medications. Cardiology is involved for cardiac aspects of care. Patient is known to our practice from before and outside. Lying comfortably flat in bed, no JVD, pink and wet mucosa, no carotid bruit, no goiter, lungs: Not using accessory muscles of breathing, lungs reveal scattered rhonchi, cardiac: Regular regular, no thrill/gallop, 2+murmur in apex, abdomen: Soft, no hepatomegaly, some suprapubic and upper epigastric tenderness is positive, no rebound tenderness, extremities: No edema, dorsalis pedis is 2+ bilateral. Right femoral/groin area with no hematoma. Past medical history includes hypertension, hyperlipidemia, coronary artery disease, history of CABG (2010), systolic heart failure, ischemic cardiomyopathy, gout, kidney stone, s/p ESWL, frequent UTI, history of CVA, Diverticulosis, COPD, s/p COVID, depression, Anxiety, GERD, history of appendectomy/hysterectomy/tonsillectomy, and history of BiV ICD (Biotronik) implantation. She is chronically wheelchair-bound. She was previously in hospice for heart failure. She is allergic to codeine. She quit smoking years ago. She is DNR. She also has diagnosis of parkinsonism. Cardiac catheterization of August 26, 2024 (performed in [facility]) revealed triple-vessel [place] coronary artery disease. PHYSICIAN OPHTHALMOLOGIST of obtuse marginal. PHYSICIAN OPHTHALMOLOGIST of RCA. Lad with 75% lesion and status post drug-eluting stent deployment. It is of note that there is patent SVG to obtuse marginal and also patent SVG to RCA. Cardiac catheterization of September 2020 revealed ejection fraction of 20%, PHYSICIAN OPHTHALMOLOGIST of SVG to diagonal, patent TAN, patent SVG to OM, patent SVG to PDA and PHYSICIAN OPHTHALMOLOGIST of RCA. Echocardiogram of September 04, 2024 reported: Dilated left ventricle. LVEF of 10%. Increased EDP. Pacing wire in right-sided chambers. Mild mitral regurgitation. As there was no good tricuspid regurgitation jet, right ventricular systolic pressure could not be estimated Echocardiogram of August 25, 2024 (performed in [facility]) for PE old ejection fraction of 20% Echocardiogram of reported: LV EF of 15-20%, biatrial enlargement, pacing wire in the right-sided chambers. Echocardiogram of November 22, 2023 revealed: Dilated left ventricle, LVEF of 10%, pacing wire and right-sided chambers, mild mitral regurgitation. Echocardiogram of August 28, 2023 revealed: Dilated left ventricle with significantly reduced systolic function. LVEF of 20%. Elevated LVEDP, dilated four chambers. Pacing wire was seen in right-sided chamber. [id number] MR. Echocardiogram of January 03, 2023 revealed ejection fraction of 20 to 25% and mild left ventricular enlargement Echocardiogram of March 25, 2023 (performed in the office) revealed four- chamber dilatation, LVEF of 20 to 25%, mild to moderate MR, mild TR, trace pulmonary valve insufficiency and right ventricular systolic pressure of 35 mmHg Echocardiogram of March 21, 2022 revealed ejection fraction of around 20%, mild MR/TR Echocardiogram of February 17, 2021 revealed dilated LV, LVEF around 25%, severe diffuse hypokinesis, increased LVEDP, dilated left and right atria, mild to moderate MR, mild TR. Echocardiogram of December 30, 2020 reported ejection fraction less than 20% and dilated left atrium. Echocardiogram of August 2020 revealed ejection fraction less than 25%, right atrial enlargement, left atrial enlargement and moderate MR. Creatinine: 1.0 Potassium: 4.4 Troponin (high sensitive): 25 - 25 BNP: 901 Chest x-ray revealed: IMPRESSION: 1. No acute disease. EKG shows a sensed, V paced rhythm Tele shows sinus rhythm, V paced Patient is a 79-year-old female we will came through with atypical chest discomfort. Presentation is not considered acute coronary syndrome. To be kept on aspirin/Plavix. Presentation questions URI/bronchitis/COPD exacerbation. Does have baseline history of ischemic/systolic heart failure which at this point is considered compensated. She is DNR. At this point no ischemic work-up is indicated. As per patient, the patient's usual medications were held by mistake in other hospitals visit and were not given to her while she was back to her [facility]. Chest pain, atypical Bronchitis/URI COPD exacerbation Ischemic cardiomyopathy, history of Coronary artery disease, status post CABG Status post PCI Diverticular disease Renal calculi Emphysema Kidney stone, history of Coronary artery disease, SP CABG GERD Hypertension Hyperlipidemia Gout Constipation UTI Cardiac suggestion for management: Manage on telemetry Follow-up electrolytes and kidney function tests and correct abnormalities No indication for ischemic work up at this point Continue Aspirin/Plavix Continue Toprol-XL/Entresto/Aldactone/Ranolazine/Atorvastatin Management of URI/bronchitis/COPD exacerbation as per primary team/pulmonology. Further evaluation and management depends on the above and clinical course Thank you for consultation A total of 75 minutes was spent reviewing the patient record, examining the patient, making a diagnostic and therapeutic plan, discussing this plan with medical personnel, following up on diagnostic studies and following the patient for clinical stability excluding any and all procedures. At least 50% of this time was spent in direct, [id number] contact. Thank you for allowing me to participate in this patient's care. Further recommendations will depend on patient's clinical course. Please do not hesitate to contact me if you have any questions or concerns. This medical document was created using electronic medical record system with [employer] computerized dictation system. Although this document has been carefully reviewed, there may still be some phonetic and typographical errors. These areas are purely typographical due to the imperfection of the software programs, and do not reflect any compromise in the patient's medical care. Plan discussed with: Patient, Other (nurse) RODRIGUEZ LEBRON MD Sep 20, 2024 09:37
[2024-09-20] MEDS ORDERED: FLUoxetine HCL 20 MG CAP PO SCH (10:00)
[2024-09-20] MEDS: SACUBITRIL-VALSARTAN 24mg/26mg TAB PO SCH (10:38)
[2024-09-20] MEDS: DULoxetine HCL 30 MG CAP PO SCH (10:38)
[2024-09-20] MEDS: ASPirin-EC 81 mg tab PO SCH (10:38)
[2024-09-20] MEDS: PANTOPRAZOLE 40 MG TAB PO SCH (10:39)
[2024-09-20] MEDS: CLOPIDOGREL BISULFATE 75 MG TAB PO SCH (10:39)
[2024-09-20] MEDS: SPIRONOLACTONE 25 MG TAB PO SCH (10:39)
[2024-09-20] MEDS: METOPROLOL SUCCINATE XL 50 MG TAB PO SCH (10:40)
[2024-09-20] MEDS: RANOLAZINE ER 500 MG TAB PO SCH (10:40)
[2024-09-20] MEDS: IPRATROPIUM BROM 0.5 MG/2.5ML INH SOL NEB SCH (11:38)
[2024-09-20] MEDS: ALBUTEROL SULF 2.5 MG/0.5ML(0.5%) NEB SOLN NEB SCH (11:38)
[2024-09-20] MEDS: ONDANSETRON HCL 4 MG/2 ML VIAL IV PRN (11:52)
[2024-09-20] MEDS: AZTREONAM 1GM INJ 1 GM in D5W 5% 50 ML IV ONE (11:57)
[2024-09-20] MEDS: MORPHINE SULFATE INJ 2 MG/ml SYRG IV PRN (11:57)
[2024-09-20] MEDS: OXYBUTYNIN CHL 5 MG TAB PO SCH (15:07)
--- NOTE | 2024-09-20 16:09 | DVHPNRES ---
Progress Note Date Seen: Sep 20, 2024 Resident Creating Document: PHILL LEAL RUSTY Has the PT tested + for MRSA If YES, has PT been informed?: No Medical Necessity Reason Pt with a Central, PICC or Fol: No Subjective Review of Systems Year old female with past medical history coronary artery disease and recurrent UTI brought to the hospital from assisted care facility due to abdominal pain and chest pain. Chest pain is localized at left-sided, nonradiating, constant, pressure-like 10/10 and worsened with cough. Abdominal pain is localized at lower abdomen, radiating to back, constant, 7/10 with no clear exacerbating or relieving factor. Patient also reports, bilateral flank discomfort, fever, nausea, dysuria, urgency and frequency. She denies headache, shortness of breaths, or any recent bowel habit changes. Previous hospitalization: Patient was discharged on 09/06/2024, had admitted due to chest pain, ruled out ACS. PMHx: Coronary artery disease (status CABG in 2010, LHC on 08/26/2024 at [facility], revealed triple-vessel disease) systolic heart failure (EF 10%), ischemic cardiomyopathy, gout, kidney stone, s/p ESWL, CVA, diverticulosis, COPD (on home oxygen 2 L/min), status post COVID, anxiety, depression, GERD, and parkinsonism PSHx: 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, appendectomy, hysterectomy, BiV ICD (Biotronik) implantation, CABG Family history: Not contributed Social history: Ex-smoker, wheelchair-bound, lives at the facility, denies current drug use. Home medication: Aspirin, Plavix, atorvastatin, metoprolol, Entresto, Aldactone, ranolazine, inhalers Allergic history: Ceftriaxone and hydrocodone Patient seen and examined at bedside. Patient is still complaining of abdominal pain, urgency, frequency and dysuria. Patient reports: No new complaints Changes from previous H/P or p: No Changes Objective vital signs Vital Sign Date Time Temp Pulse Resp B/P (MAP) Pulse Ox O2 Delivery O2 Flow Rate FiO2 09/20/24 13:00 98.1 62 16 101/64 (76) 96 98.1 09/20/24 11:38 Nasal Cannula 2.0 09/20/24 11:38 28 medications Current Medications Medications Dose Ordered Sig/Asha Route Start Time Stop Time Status Last Admin Dose Admin Ondansetron HCl 4 mg Q4HP PRN IV 09/20/24 07:00 09/20/24 11:52 4 MG Acetaminophen 650 mg Q6HP PRN PO 09/20/24 07:00 Morphine Sulfate 2 mg Q4HPRN PRN IV 09/20/24 07:00 09/20/24 11:57 2 MG Nitroglycerin 0.4 mg Q5MINP PRN SL 09/20/24 07:00 Aspirin 81 mg DAILY PO 09/20/24 10:00 09/20/24 10:38 81 MG Atorvastatin Calcium 40 mg HS PO 09/20/24 22:00 Clopidogrel Bisulfate 75 mg DAILY PO 09/20/24 10:00 09/20/24 10:39 75 MG Duloxetine HCl 30 mg DAILY PO 09/20/24 10:00 09/20/24 10:38 30 MG Oxybutynin Chloride 5 mg Q8HR PO 09/20/24 14:00 09/20/24 15:07 5 MG Pantoprazole Sodium 40 mg DAILY PO 09/20/24 10:00 09/20/24 10:39 40 MG Ranolazine 500 mg BID PO 09/20/24 10:00 09/20/24 10:40 500 MG Spironolactone 25 mg DAILY PO 09/20/24 10:00 09/20/24 10:39 25 MG Fluoxetine HCl 20 mg DAILY PO 09/20/24 10:00 Hold Metoprolol Succinate 25 mg DAILY PO 09/20/24 10:00 09/20/24 10:40 25 MG Albuterol 2.5 mg Q4HPRN PRN NEB 09/20/24 07:00 Ipratropium [place] 0.5 mg Q4HPRN PRN NEB 09/20/24 07:00 Ipratropium [place] 0.5 mg Q6HR NEB 09/20/24 12:00 09/20/24 11:38 0.5 MG Albuterol 2.5 mg Q6HR NEB 09/20/24 12:00 09/20/24 11:38 2.5 MG Hydralazine HCl 10 mg Q6HP PRN IV 09/20/24 08:30 Sacubitril/ Valsartan 1 tab BID PO 09/20/24 10:00 09/20/24 10:38 1 TAB Meropenem 50 ml @ 17 mls/hr Q8HR IV 09/20/24 14:00 UNV Examination General Appearance: Alert, Oriented X3, Cooperative, No acute distress HEENT: Atraumatic, PERRLA, EOMI, Mucous membrane moist/pink Respiratory: Clear to auscultation, Normal air movement Cardiovascular: Regular rate, Normal S1, Normal S2, No murmurs, no chest wall tenderness Abdominal: Abdominal tenderness Extremities: No clubbing, No cyanosis, No edema, Normal pulses, No tenderness/swelling Skin: No rashes, No breakdown, No significant lesion Neuro: Normal gait, Normal speech, Strength at 5/5 X4 ext, Normal tone, Sensation intact, Cranial nerves 3-12 NL, Reflexes 2+ Psych/Mental Status: Mental status NL, Mood NL laboratory and microbiology Laboratory Tests 09/20/24 05:27 Test 09/20/24 05:27 Range/Units Serum Glucose 92 74-106 mg/dL Labs and/or images reviewed: Labs reviewed by me, Image(s) reviewed by me Problem List/Assessment/Plan Problem List/Assessment/Plan Acute complicated UTI UA shows UTI picture Urine culture Empiric antibiotic, meropenem (patient is allergic to Rocephin has history of UTI due to ESBL) IV fluid Pain management Possible post SD angina EKGs shows paced rhythm, with no significant ST or T-wave changes Trop I trend is within normal limits Cardiology consulted, recommended medical management Continue home meds Telemetry History of Coronary artery disease (status CABG in 2010, LHC on 08/26/2024 at [facility], revealed triple-vessel disease) Systolic heart failure (EF 10%) Ischemic cardiomyopathy Gout Kidney stone, s/p ESWL History CVA Diverticulosis COPD (on home oxygen 2 L/min) Status post COVID Anxiety Depression GERD Parkinsonism Continue home meds Breathing treatment DIET: Cardiac diet DVT PROPHYLAXIS: Lovenox GI PROPHYLAXIS:: Protonix CODE STATUS: Goal of care discussed for more than 18 minutes, full code DISPOSITION: Telemetry Patient's status and plan discussed with the patient. Case discussed with Dr. Navarro. Plan discussed with: Patient, Other (RN) My Orders My Orders Orders - PHILL LEAL RESDIDEBRA Procedure Category Date Status Time Electrocardigram EKG 09/20/24 Logged 11:57 Meropenem 1gm Ivpb PHA 4/27/25 Logged (Merrem 1gm/ Ns) 14:00 PHILL LEAL RESDIENT Sep 20, 2024 16:08
[2024-09-20] MEDS: MEROPENEM 1GM IVPB 50 ML IV SCH (18:09)
[2024-09-20] MEDS: ATORVASTATIN 20 MG TAB PO SCH (21:22)
[2024-09-21] VITALS (18 sets, daily range): BP systolic 96–110; BP diastolic 40–45; PULSE 62–73; RESP 14–20; TEMP 98–98.7; O2SAT 92–100
[2024-09-21 06:28] LABS: Basophils # (auto) 0.1 10 ^3/uL (0-0.2); Basophils % (auto) 0.7 % (0.0-2.0); Eosinophils # (auto) 0.4 10 ^3/uL (0-0.8); Eosinophils % (auto) 5.5 % (0.0-7.0); Hematocrit 36.1 % (36.0-46.0); Lymphocytes # (auto) 1.2 10 ^3/uL (0.4-5.4); Lymphocytes % (auto) 16.5 % (10.0-50.0); Mean Corpuscular Hemoglobin 29.2 pg (28.0-32.0); Mean Corpuscular Hgb Conc. 33.3 g/dL (32.0-36.0); Mean Corpuscular Volume 87.7 fL (80.0-100.0); Monocytes # (auto) 1.2 10 ^3/uL (0-1.3); Monocytes % (auto) 16.1 % (0.0-12.0); Neutrophils # (auto) 4.4 10 ^3/uL (1.6-8.6); Neutrophils % (auto) 61.2 % (37.0-80.0); Nucleated Red Blood Cells % 0.1 %; Platelet Count (auto) 212 10^3/uL (140-450); Red Blood Cells 4.11 10^6/uL (4.0-5.20); Red Cell Distribution Width 16.4 % (11.8-14.3); White Blood Cell 7.3 10^3/uL (4.4-10.8)
[2024-09-21 06:39] LABS: Alanine Aminotransferase 10 U/L (7-40); Albumin 3.7 g/dL (3.2-4.8); Alkaline Phosphatase 59 U/L (46-116); Anion Gap 5 (5-15); Aspartate Aminotransferase 13 U/L (13-40); BUN/Creatinine Ratio 20.6 (10.0-20.0); Bilirubin, Total 0.4 mg/dL (0.2-1.0); Calcium 9.1 mg/dL (8.7-10.4); Carbon Dioxide 26 mmol/L (20-31); Glucose 92 mg/dL (74-106); Potassium 4.4 mmol/L (3.5-5.1); Sodium 139 mmol/L (136-145)
[2024-09-21 06:42] LABS: Blood Urea Nitrogen 28 mg/dL (9-23); Chloride 108 mmol/L (98-107); Total Protein 5.5 g/dL (5.7-8.2)
--- NOTE | 2024-09-21 08:37 | DVHPN2 ---
Progress Note - Dictate Date Seen: Sep 21, 2024 Has the PT tested + for MRSA If YES, has PT been informed?: No Medical Necessity Reason Pt with a Central, PICC or Fol: No vital signs Vital Sign Date Time Temp Pulse Resp B/P (MAP) Pulse Ox O2 Delivery O2 Flow Rate FiO2 09/21/24 06:17 68 14 99 09/21/24 06:11 Nasal Cannula 3.0 09/21/24 06:11 32 09/21/24 04:57 98.5 102/45 (64) 98.5 Total Intake and Output 09/20/24 09/20/24 09/21/24 15:00 23:00 07:00 Intake Total 390 ml 350 ml Balance 390 ml 350 ml medications Current Medications Medications Dose Ordered Sig/Asha Route Start Time Stop Time Status Last Admin Dose Admin Ondansetron HCl 4 mg Q4HP PRN IV 09/20/24 07:00 09/21/24 02:22 4 MG Acetaminophen 650 mg Q6HP PRN PO 09/20/24 07:00 Morphine Sulfate 2 mg Q4HPRN PRN IV 09/20/24 07:00 09/21/24 02:22 2 MG Nitroglycerin 0.4 mg Q5MINP PRN SL 09/20/24 07:00 Aspirin 81 mg DAILY PO 09/20/24 10:00 09/20/24 10:38 81 MG Atorvastatin Calcium 40 mg HS PO 09/20/24 22:00 09/20/24 21:22 40 MG Clopidogrel Bisulfate 75 mg DAILY PO 09/20/24 10:00 09/20/24 10:39 75 MG Duloxetine HCl 30 mg DAILY PO 09/20/24 10:00 09/20/24 10:38 30 MG Oxybutynin Chloride 5 mg Q8HR PO 09/20/24 14:00 09/21/24 06:26 5 MG Pantoprazole Sodium 40 mg DAILY PO 09/20/24 10:00 09/20/24 10:39 40 MG Ranolazine 500 mg BID PO 09/20/24 10:00 09/20/24 21:22 500 MG Spironolactone 25 mg DAILY PO 09/20/24 10:00 09/20/24 10:39 25 MG Fluoxetine HCl 20 mg DAILY PO 09/20/24 10:00 Hold Metoprolol Succinate 25 mg DAILY PO 09/20/24 10:00 09/20/24 10:40 25 MG Albuterol 2.5 mg Q4HPRN PRN NEB 09/20/24 07:00 Ipratropium [place] 0.5 mg Q4HPRN PRN NEB 09/20/24 07:00 Ipratropium [place] 0.5 mg Q6HR NEB 09/20/24 12:00 09/21/24 06:09 0.5 MG Albuterol 2.5 mg Q6HR NEB 09/20/24 12:00 09/21/24 06:09 2.5 MG Hydralazine HCl 10 mg Q6HP PRN IV 09/20/24 08:30 Sacubitril/ Valsartan 1 tab BID PO 09/20/24 10:00 09/20/24 21:22 1 TAB Meropenem 50 ml @ 17 mls/hr Q8HR IV 09/20/24 14:00 09/21/24 06:26 17 MLS/HR laboratory and microbiology Laboratory Tests 09/21/24 05:16 Test 09/21/24 05:16 Range/Units Serum Glucose 92 74-106 mg/dL Assessment/Plan Patient is a 79-year-old female who presented to the hospital with chest discomfort. She mentions that she was in another facility recently and they stopped all her usual medications. She mentions and she started having some chest discomfort and decided to come to the hospital to restart back her usual medications. Cardiology is involved for cardiac aspects of care. Patient is known to our practice from before and outside. Lying comfortably flat in bed, no JVD, pink and wet mucosa, no carotid bruit, no goiter, lungs: Not using accessory muscles of breathing, lungs reveal scattered rhonchi, cardiac: Regular regular, no thrill/gallop, 2+murmur in apex, abdomen: Soft, no hepatomegaly, some suprapubic and upper epigastric tenderness is positive, no rebound tenderness, extremities: No edema, dorsalis pedis is 2+ bilateral. Right femoral/groin area with no hematoma. Past medical history includes hypertension, hyperlipidemia, coronary artery disease, history of CABG (2010), systolic heart failure, ischemic cardiomyopathy, gout, kidney stone, s/p ESWL, frequent UTI, history of CVA, Diverticulosis, COPD, s/p COVID, depression, Anxiety, GERD, history of appendectomy/hysterectomy/tonsillectomy, and history of BiV ICD (Biotronik) implantation. She is chronically wheelchair-bound. She was previously in hospice for heart failure. She is allergic to codeine. She quit smoking years ago. She is DNR. She also has diagnosis of parkinsonism. Cardiac catheterization of August 26, 2024 (performed in [facility]) revealed triple-vessel [place] coronary artery disease. OPERATIONS OFFICER of obtuse marginal. OPERATIONS OFFICER of RCA. Lad with 75% lesion and status post drug-eluting stent deployment. It is of note that there is patent SVG to obtuse marginal and also patent SVG to RCA. Cardiac catheterization of September 2020 revealed ejection fraction of 20%, OPERATIONS OFFICER of SVG to diagonal, patent TAN, patent SVG to OM, patent SVG to PDA and OPERATIONS OFFICER of RCA. Echocardiogram of September 04, 2024 reported: Dilated left ventricle. LVEF of 10%. Increased EDP. Pacing wire in right-sided chambers. Mild mitral regurgitation. As there was no good tricuspid regurgitation jet, right ventricular systolic pressure could not be estimated Echocardiogram of August 25, 2024 (performed in [facility]) for PE old ejection fraction of 20% Echocardiogram of reported: LV EF of 15-20%, biatrial enlargement, pacing wire in the right-sided chambers. Echocardiogram of November 22, 2023 revealed: Dilated left ventricle, LVEF of 10%, pacing wire and right-sided chambers, mild mitral regurgitation. Echocardiogram of August 28, 2023 revealed: Dilated left ventricle with significantly reduced systolic function. LVEF of 20%. Elevated LVEDP, dilated four chambers. Pacing wire was seen in right-sided chamber. [id number] MR. Echocardiogram of January 03, 2023 revealed ejection fraction of 20 to 25% and mild left ventricular enlargement Echocardiogram of March 25, 2023 (performed in the office) revealed four- chamber dilatation, LVEF of 20 to 25%, mild to moderate MR, mild TR, trace pulmonary valve insufficiency and right ventricular systolic pressure of 35 mmHg Echocardiogram of March 21, 2022 revealed ejection fraction of around 20%, mild MR/TR Echocardiogram of February 17, 2021 revealed dilated LV, LVEF around 25%, severe diffuse hypokinesis, increased LVEDP, dilated left and right atria, mild to moderate MR, mild TR. Echocardiogram of December 30, 2020 reported ejection fraction less than 20% and dilated left atrium. Echocardiogram of August 2020 revealed ejection fraction less than 25%, right atrial enlargement, left atrial enlargement and moderate MR. Creatinine: 1.0 - 1.36 Potassium: 4.4 - 4.4 Troponin (high sensitive): 25 - 25 - 24 BNP: 901 Chest x-ray revealed: IMPRESSION: 1. No acute disease. EKG shows a sensed, V paced rhythm Tele shows sinus rhythm, V paced Patient is a 79-year-old female we will came through with atypical chest discomfort. Presentation is not considered acute coronary syndrome. To be kept on aspirin/Plavix. Presentation questions URI/bronchitis/COPD exacerbation. Does have baseline history of ischemic/systolic heart failure which at this point is considered compensated. She is DNR. At this point no ischemic work-up is indicated. As per patient, the patient's usual medications were held by mistake in other hospitals visit and were not given to her while she was [facility] to her [facility]. Chest pain, atypical Bronchitis/URI COPD exacerbation Ischemic cardiomyopathy, history of Coronary artery disease, status post CABG Status post PCI Diverticular disease Renal calculi Emphysema Kidney stone, history of Coronary artery disease, SP CABG GERD Hypertension Hyperlipidemia Gout Constipation UTI Cardiac suggestion for management: Manage on telemetry Follow-up electrolytes and kidney function tests and correct abnormalities No indication for ischemic work up at this point Continue Aspirin/Plavix Continue Toprol-XL/Entresto/Aldactone/Ranolazine/Atorvastatin Management of URI/bronchitis/COPD exacerbation as per primary team/pulmonology. Cardiac monge, is stable and can be followed as outpatient Further evaluation and management depends on the above and clinical course A total of 75 minutes was spent reviewing the patient record, examining the patient, making a diagnostic and therapeutic plan, discussing this plan with medical personnel, following up on diagnostic studies and following the patient for clinical stability excluding any and all procedures. At least 50% of this time was spent in direct, [id number] contact. Thank you for allowing me to participate in this patient's care. Further recommendations will depend on patient's clinical course. Please do not hesitate to contact me if you have any questions or concerns. This medical document was created using electronic medical record system with [employer] dictation system. Although this document has been carefully reviewed, there may still be some phonetic and typographical errors. These areas are purely typographical due to the imperfection of the software programs, and do not reflect any compromise in the patient's medical care. Plan discussed with: Patient, Other (nurse) RODRIGUEZ LEBRON MD Sep 21, 2024 08:37
--- NOTE | 2024-09-21 10:48 | ECG ---
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
[2024-09-21] MEDS: SODIUM CHLORIDE 0.9% 250 ML IV ONE (13:32)
--- NOTE | 2024-09-21 14:24 | DVHPNRES ---
Progress Note Date Seen: Sep 21, 2024 Resident Creating Document: PHILL LEAL RUSTY Has the PT tested + for MRSA If YES, has PT been informed?: No Medical Necessity Reason Pt with a Central, PICC or Fol: No Subjective Review of Systems Patient seen and examined at the bedside. Patient is still complaining of abdominal pain and dysuria. Patient reports: No new complaints, Feels better Changes from previous H/P or p: No Changes Objective vital signs Vital Sign Date Time Temp Pulse Resp B/P (MAP) Pulse Ox O2 Delivery O2 Flow Rate FiO2 09/21/24 13:34 68 18 106/44 09/21/24 13:00 98.7 93 98.7 09/21/24 10:00 Nasal Cannula* 2 28 Total Intake and Output 09/20/24 09/20/24 09/21/24 15:00 23:00 07:00 Intake Total 390 ml 350 ml Balance 390 ml 350 ml medications Current Medications Medications Dose Ordered Sig/Asha Route Start Time Stop Time Status Last Admin Dose Admin Ondansetron HCl 4 mg Q4HP PRN IV 09/20/24 07:00 09/21/24 02:22 4 MG Acetaminophen 650 mg Q6HP PRN PO 09/20/24 07:00 Morphine Sulfate 2 mg Q4HPRN PRN IV 09/20/24 07:00 09/21/24 13:34 2 MG Nitroglycerin 0.4 mg Q5MINP PRN SL 09/20/24 07:00 Aspirin 81 mg DAILY PO 09/20/24 10:00 09/21/24 08:54 81 MG Atorvastatin Calcium 40 mg HS PO 09/20/24 22:00 09/20/24 21:22 40 MG Clopidogrel Bisulfate 75 mg DAILY PO 09/20/24 10:00 09/21/24 08:55 75 MG Duloxetine HCl 30 mg DAILY PO 09/20/24 10:00 09/21/24 08:59 30 MG Oxybutynin Chloride 5 mg Q8HR PO 09/20/24 14:00 09/21/24 13:32 5 MG Pantoprazole Sodium 40 mg DAILY PO 09/20/24 10:00 09/21/24 08:54 40 MG Ranolazine 500 mg BID PO 09/20/24 10:00 09/21/24 08:56 500 MG Spironolactone 25 mg DAILY PO 09/20/24 10:00 09/21/24 08:55 25 MG Fluoxetine HCl 20 mg DAILY PO 09/20/24 10:00 Hold Metoprolol Succinate 25 mg DAILY PO 09/20/24 10:00 09/20/24 10:40 25 MG Albuterol 2.5 mg Q4HPRN PRN NEB 09/20/24 07:00 Ipratropium [place] 0.5 mg Q4HPRN PRN NEB 09/20/24 07:00 Ipratropium [place] 0.5 mg Q6HR NEB 09/20/24 12:00 09/21/24 11:14 0.5 MG Albuterol 2.5 mg Q6HR NEB 09/20/24 12:00 09/21/24 11:14 2.5 MG Hydralazine HCl 10 mg Q6HP PRN IV 09/20/24 08:30 Meropenem 50 ml @ 17 mls/hr Q8HR IV 09/20/24 14:00 09/21/24 13:32 17 MLS/HR Oxycodone/ Acetaminophen 2 tab Q4HP PRN PO 09/21/24 12:00 Examination General Appearance: Alert, Oriented X3, Cooperative, No acute distress HEENT: Atraumatic, PERRLA, EOMI, Mucous membrane moist/pink Respiratory: Clear to auscultation, Normal air movement Cardiovascular: Regular rate, Normal S1, Normal S2, No murmurs, no chest wall tenderness Abdominal: Abdominal tenderness Extremities: No clubbing, No cyanosis, No edema, Normal pulses, No tenderness/swelling Skin: No rashes, No breakdown, No significant lesion Neuro: Normal gait, Normal speech, Strength at 5/5 X4 ext, Normal tone, Sensation intact, Cranial nerves 3-12 NL, Reflexes 2+ Psych/Mental Status: Mental status NL, Mood NL laboratory and microbiology Laboratory Tests 09/21/24 05:16 Test 09/21/24 05:16 Range/Units Serum Glucose 92 74-106 mg/dL Microbiology Date/Time Source Procedure Growth Status 09/20/24 12:10 Blood Blood Culture - Preliminary NO GROWTH AFTER 24 HOURS OF INCUBATION. Resulted 09/20/24 10:01 Nose MRSA Screen - Final Complete 09/20/24 06:46 Voided Urine Urine Culture - Preliminary Resulted Labs and/or images reviewed: Labs reviewed by me, Image(s) reviewed by me Problem List/Assessment/Plan Problem List/Assessment/Plan Acute complicated UTI UA shows UTI picture Urine culture pending Empiric antibiotic, meropenem (patient is allergic to Rocephin has history of UTI due to ESBL) IV fluid Pain management Possible post AK angina EKGs shows paced rhythm, with no significant ST or T-wave changes Trop I trend is within normal limits Cardiology consulted, recommended medical management Continue home meds Telemetry History of Coronary artery disease (status CABG in 2010, LHC on 08/26/2024 at [facility], revealed triple-vessel disease) Systolic heart failure (EF 10%) Ischemic cardiomyopathy Gout Kidney stone, s/p ESWL History CVA Diverticulosis COPD (on home oxygen 2 L/min) Status post COVID Anxiety Depression GERD Parkinsonism Continue home meds Breathing treatment DIET: Cardiac diet DVT PROPHYLAXIS: Lovenox GI PROPHYLAXIS:: Protonix CODE STATUS: Goal of care discussed for more than 18 minutes, full code DISPOSITION: Telemetry Patient's status and plan discussed with the patient. Case discussed with Dr. Navarro. Plan discussed with: Patient, Other (RN) My Orders My Orders Orders - PHILL LEAL RESDIENT Procedure Category Date Status Time Oxycodone W/ Acet PHA 09/21/24 In Process 5/325mg Tab (Percocet 12:00 PHILL LEAL RESDIENT Sep 21, 2024 14:24
[2024-09-21] MEDS: OXYCODONE W/ ACETAMINOPHEN 5/325MG TABLET PO PRN (16:50)
[2024-09-21] MEDS: MEROPENEM 1GM IVPB 50 ML IV SCH (21:39)
[2024-09-22] VITALS (16 sets, daily range): BP systolic 100–129; BP diastolic 32–65; PULSE 64–76; RESP 17–20; TEMP 97.8–98.4; O2SAT 94–100
[2024-09-22 06:57] LABS: Basophils # (auto) 0.1 10 ^3/uL (0-0.2); Basophils % (auto) 0.8 % (0.0-2.0); Eosinophils # (auto) 0.6 10 ^3/uL (0-0.8); Eosinophils % (auto) 8.4 % (0.0-7.0); Hematocrit 35.6 % (36.0-46.0); Lymphocytes # (auto) 1.2 10 ^3/uL (0.4-5.4); Lymphocytes % (auto) 17.5 % (10.0-50.0); Mean Corpuscular Hemoglobin 29.3 pg (28.0-32.0); Mean Corpuscular Hgb Conc. 33.8 g/dL (32.0-36.0); Mean Corpuscular Volume 86.7 fL (80.0-100.0); Monocytes # (auto) 1.1 10 ^3/uL (0-1.3); Monocytes % (auto) 16.7 % (0.0-12.0); Neutrophils # (auto) 3.8 10 ^3/uL (1.6-8.6); Neutrophils % (auto) 56.6 % (37.0-80.0); Nucleated Red Blood Cells % 0.1 %; Platelet Count (auto) 199 10^3/uL (140-450); Red Blood Cells 4.11 10^6/uL (4.0-5.20); Red Cell Distribution Width 16.1 % (11.8-14.3); White Blood Cell 6.6 10^3/uL (4.4-10.8)
[2024-09-22 06:59] LABS: Albumin 3.8 g/dL (3.2-4.8); Alkaline Phosphatase 61 U/L (46-116); Anion Gap 5 (5-15); Aspartate Aminotransferase 13 U/L (13-40); BUN/Creatinine Ratio 22.6 (10.0-20.0); Calcium 9.3 mg/dL (8.7-10.4); Carbon Dioxide 27 mmol/L (20-31); Glucose 86 mg/dL (74-106); Potassium 4.3 mmol/L (3.5-5.1); Sodium 140 mmol/L (136-145)
[2024-09-22 07:00] LABS: Bilirubin, Total 0.5 mg/dL (0.2-1.0)
--- NOTE | 2024-09-22 07:00 | DVHPN2 ---
Progress Note - Dictate Date Seen: Sep 22, 2024 Has the PT tested + for MRSA If YES, has PT been informed?: No Medical Necessity Reason Pt with a Central, PICC or Fol: No vital signs Vital Sign Date Time Temp Pulse Resp B/P (MAP) Pulse Ox O2 Delivery O2 Flow Rate FiO2 09/22/24 06:27 66 18 100 09/22/24 06:19 Nasal Cannula* 3 32 09/22/24 05:00 97.8 101/62 (75) 97.8 Total Intake and Output 09/21/24 09/21/24 09/22/24 15:00 23:00 07:00 Intake Total 50 ml 550 ml 50 ml Balance 50 ml 550 ml 50 ml medications Current Medications Medications Dose Ordered Sig/Asha Route Start Time Stop Time Status Last Admin Dose Admin Ondansetron HCl 4 mg Q4HP PRN IV 09/20/24 07:00 09/21/24 21:39 4 MG Acetaminophen 650 mg Q6HP PRN PO 09/20/24 07:00 Morphine Sulfate 2 mg Q4HPRN PRN IV 09/20/24 07:00 09/22/24 00:30 2 MG Nitroglycerin 0.4 mg Q5MINP PRN SL 09/20/24 07:00 Aspirin 81 mg DAILY PO 09/20/24 10:00 09/21/24 08:54 81 MG Atorvastatin Calcium 40 mg HS PO 09/20/24 22:00 09/21/24 21:39 40 MG Clopidogrel Bisulfate 75 mg DAILY PO 09/20/24 10:00 09/21/24 08:55 75 MG Duloxetine HCl 30 mg DAILY PO 09/20/24 10:00 09/21/24 08:59 30 MG Oxybutynin Chloride 5 mg Q8HR PO 09/20/24 14:00 09/22/24 05:37 5 MG Pantoprazole Sodium 40 mg DAILY PO 09/20/24 10:00 09/21/24 08:54 40 MG Ranolazine 500 mg BID PO 09/20/24 10:00 09/21/24 21:40 500 MG Spironolactone 25 mg DAILY PO 09/20/24 10:00 09/21/24 08:55 25 MG Fluoxetine HCl 20 mg DAILY PO 09/20/24 10:00 Hold Metoprolol Succinate 25 mg DAILY PO 09/20/24 10:00 09/20/24 10:40 25 MG Albuterol 2.5 mg Q4HPRN PRN NEB 09/20/24 07:00 Ipratropium [place] 0.5 mg Q4HPRN PRN NEB 09/20/24 07:00 Ipratropium [place] 0.5 mg Q6HR NEB 09/20/24 12:00 09/22/24 06:19 0.5 MG Albuterol 2.5 mg Q6HR NEB 09/20/24 12:00 09/22/24 06:19 2.5 MG Hydralazine HCl 10 mg Q6HP PRN IV 09/20/24 08:30 Oxycodone/ Acetaminophen 2 tab Q4HP PRN PO 09/21/24 12:00 09/22/24 05:38 2 TAB Meropenem 50 ml @ 17 mls/hr Q12HR IV 09/21/24 22:00 09/21/24 21:39 17 MLS/HR laboratory and microbiology Test 09/22/24 05:27 Range/Units Serum Glucose Pending Assessment/Plan Patient is a 79-year-old female who presented to the hospital with chest discomfort. She mentions that she was in another facility recently and they stopped all her usual medications. She mentions and she started having some chest discomfort and decided to come to the hospital to restart back her usual medications. Cardiology is involved for cardiac aspects of care. Patient is known to our practice from before and outside. Lying comfortably flat in bed, no JVD, pink and wet mucosa, no carotid bruit, no goiter, lungs: Not using accessory muscles of breathing, lungs reveal scattered rhonchi, cardiac: Regular regular, no thrill/gallop, 2+murmur in apex, abdomen: Soft, no hepatomegaly, some suprapubic and upper epigastric tenderness is positive, no rebound tenderness, extremities: No edema, dorsalis pedis is 2+ bilateral. Right femoral/groin area with no hematoma. Past medical history includes hypertension, hyperlipidemia, coronary artery dise ase, history of CABG (2010), systolic heart failure, ischemic cardiomyopathy, gout, kidney stone, s/p ESWL, frequent UTI, history of CVA, Diverticulosis, COPD, s/p COVID, depression, Anxiety, GERD, history of appendectomy/hysterectomy/tonsillectomy, and history of BiV ICD (Biotronik) implantation. She is chronically wheelchair-bound. She was previously in hospice for heart failure. She is allergic to codeine. She quit smoking years ago. She is DNR. She also has diagnosis of parkinsonism. Cardiac catheterization of August 26, 2024 (performed in [facility]) revealed triple-vessel knik coronary artery disease. RADIOLOGIST PHYSICIAN of obtuse marginal. RADIOLOGIST PHYSICIAN of RCA. Lad with 75% lesion and status post drug-eluting stent deployment. It is of note that there is patent SVG to obtuse marginal and also patent SVG to RCA. Cardiac catheterization of September 2020 revealed ejection fraction of 20%, RADIOLOGIST PHYSICIAN of SVG to diagonal, patent TAN, patent SVG to OM, patent SVG to PDA and RADIOLOGIST PHYSICIAN of RCA. Echocardiogram of September 04, 2024 reported: Dilated left ventricle. LVEF of 10%. Increased EDP. Pacing wire in right-sided chambers. Mild mitral regurgitation. As there was no good tricuspid regurgitation jet, right ventricular systolic pressure could not be estimated Echocardiogram of August 25, 2024 (performed in [facility]) for PE old ejection fraction of 20% Echocardiogram of reported: LV EF of 15-20%, biatrial enlargement, pacing wire in the right-sided chambers. Echocardiogram of November 22, 2023 revealed: Dilated left ventricle, LVEF of 10%, pacing wire and right-sided chambers, mild mitral regurgitation. Echocardiogram of August 28, 2023 revealed: Dilated left ventricle with significantly reduced systolic function. LVEF of 20%. Elevated LVEDP, dilated four chambers. Pacing wire was seen in right-sided chamber. [id number] MR. Echocardiogram of January 03, 2023 revealed ejection fraction of 20 to 25% and mild left ventricular enlargement Echocardiogram of March 25, 2023 (performed in the office) revealed four- chamber dilatation, LVEF of 20 to 25%, mild to moderate MR, mild TR, trace pulmonary valve insufficiency and right ventricular systolic pressure of 35 mmHg Echocardiogram of March 21, 2022 revealed ejection fraction of around 20%, mild MR/TR Echocardiogram of February 17, 2021 revealed dilated LV, LVEF around 25%, severe diffuse hypokinesis, increased LVEDP, dilated left and right atria, mild to moderate MR, mild TR. Echocardiogram of December 30, 2020 reported ejection fraction less than 20% and dilated left atrium. Echocardiogram of August 2020 revealed ejection fraction less than 25%, right atrial enlargement, left atrial enlargement and moderate MR. Creatinine: 1.0 - 1.36 - 1.06 Potassium: 4.4 - 4.4 - 4.3 Troponin (high sensitive): 25 - 25 - 24 BNP: 901 Chest x-ray revealed: IMPRESSION: 1. No acute disease. EKG shows a sensed, V paced rhythm Tele shows sinus rhythm, V paced Patient is a 79-year-old female we will came through with atypical chest discomfort. Presentation is not considered acute coronary syndrome. To be kept on aspirin/Plavix. Presentation questions URI/bronchitis/COPD exacerbation. Does have baseline history of ischemic/systolic heart failure which at this point is considered compensated. She is DNR. At this point no ischemic work-up is indicated. As per patient, the patient's usual medications were held by mistake in other hospitals visit and were not given to her while she was back to her [place] [facility] facility. Chest pain, atypical Bronchitis/URI COPD exacerbation Ischemic cardiomyopathy, history of Coronary artery disease, status post CABG Status post PCI Diverticular disease Renal calculi Emphysema Kidney stone, history of Coronary artery disease, SP CABG GERD Hypertension Hyperlipidemia Gout Constipation UTI Cardiac suggestion for management: Manage on telemetry Follow-up electrolytes and kidney function tests and correct abnormalities No indication for ischemic work up at this point Continue Aspirin/Plavix Continue Toprol-XL/Entresto/Aldactone/Ranolazine/Atorvastatin Management of URI/bronchitis/COPD exacerbation as per primary team/pulmonology. Cardiac monge, is stable and can be followed as outpatient Further evaluation and management depends on the above and clinical course A total of 75 minutes was spent reviewing the patient record, examining the patient, making a diagnostic and therapeutic plan, discussing this plan with medical personnel, following up on diagnostic studies and following the patient for clinical stability excluding any and all procedures. At least 50% of this time was spent in direct, [id number] contact. Thank you for allowing me to participate in this patient's care. Further recommendations will depend on patient's clinical course. Please do not hesitate to contact me if you have any questions or concerns. This medical document was created using electronic medical record system with [employer] dictation system. Although this document has been carefully reviewed, there may still be some phonetic and typographical errors. These areas are purely typographical due to the imperfection of the software programs, and do not reflect any compromise in the patient's medical care. Plan discussed with: Patient, Other (nurse) RODRIGUEZ LEBRON MD Sep 22, 2024 07:00
[2024-09-22 07:07] LABS: Alanine Aminotransferase < 9 U/L (7-40); Blood Urea Nitrogen 24 mg/dL (9-23); Chloride 108 mmol/L (98-107); Total Protein 5.5 g/dL (5.7-8.2)
--- NOTE | 2024-09-22 13:52 | DVHPNRES ---
Progress Note Date Seen: Sep 22, 2024 Resident Creating Document: PHILL LEAL RUSTY Has the PT tested + for MRSA If YES, has PT been informed?: No Medical Necessity Reason Pt with a Central, PICC or Fol: No Subjective Review of Systems Patient seen and examined at the bedside. Patient is still complaining of abdominal pain and urgency. Patient reports: No new complaints, Feels better Changes from previous H/P or p: Changes Objective vital signs Vital Sign Date Time Temp Pulse Resp B/P (MAP) Pulse Ox O2 Delivery O2 Flow Rate FiO2 09/22/24 10:21 69 18 100 09/22/24 10:13 Nasal Cannula 3.0 09/22/24 10:13 32 09/22/24 10:00 105/41 09/22/24 08:47 98.1 98.1 Total Intake and Output 09/21/24 09/21/24 09/22/24 15:00 23:00 07:00 Intake Total 50 ml 550 ml 50 ml Balance 50 ml 550 ml 50 ml medications Current Medications Medications Dose Ordered Sig/Asha Route Start Time Stop Time Status Last Admin Dose Admin Ondansetron HCl 4 mg Q4HP PRN IV 09/20/24 07:00 09/21/24 21:39 4 MG Acetaminophen 650 mg Q6HP PRN PO 09/20/24 07:00 Morphine Sulfate 2 mg Q4HPRN PRN IV 09/20/24 07:00 09/22/24 08:26 2 MG Nitroglycerin 0.4 mg Q5MINP PRN SL 09/20/24 07:00 Aspirin 81 mg DAILY PO 09/20/24 10:00 09/22/24 10:49 81 MG Atorvastatin Calcium 40 mg HS PO 09/20/24 22:00 09/21/24 21:39 40 MG Clopidogrel Bisulfate 75 mg DAILY PO 09/20/24 10:00 09/22/24 10:49 75 MG Duloxetine HCl 30 mg DAILY PO 09/20/24 10:00 09/22/24 10:50 30 MG Oxybutynin Chloride 5 mg Q8HR PO 09/20/24 14:00 09/22/24 05:37 5 MG Pantoprazole Sodium 40 mg DAILY PO 09/20/24 10:00 09/22/24 10:50 40 MG Ranolazine 500 mg BID PO 09/20/24 10:00 09/22/24 10:51 500 MG Spironolactone 25 mg DAILY PO 09/20/24 10:00 09/22/24 10:52 25 MG Fluoxetine HCl 20 mg DAILY PO 09/20/24 10:00 Hold Metoprolol Succinate 25 mg DAILY PO 09/20/24 10:00 09/20/24 10:40 25 MG Albuterol 2.5 mg Q4HPRN PRN NEB 09/20/24 07:00 Ipratropium [place] 0.5 mg Q4HPRN PRN NEB 09/20/24 07:00 Ipratropium [place] 0.5 mg Q6HR NEB 09/20/24 12:00 09/22/24 10:13 0.5 MG Albuterol 2.5 mg Q6HR NEB 09/20/24 12:00 09/22/24 10:13 2.5 MG Hydralazine HCl 10 mg Q6HP PRN IV 09/20/24 08:30 Oxycodone/ Acetaminophen 2 tab Q4HP PRN PO 09/21/24 12:00 09/22/24 05:38 2 TAB Meropenem 50 ml @ 17 mls/hr Q12HR IV 09/21/24 22:00 09/22/24 10:48 17 MLS/HR Examination General Appearance: Alert, Oriented X3, Cooperative, No acute distress HEENT: Atraumatic, PERRLA, EOMI, Mucous membrane moist/pink Respiratory: Clear to auscultation, Normal air movement Cardiovascular: Regular rate, Normal S1, Normal S2, No murmurs, no chest wall tenderness Abdominal: Abdominal tenderness Extremities: No clubbing, No cyanosis, No edema, Normal pulses, No tenderness/swelling Skin: No rashes, No breakdown, No significant lesion Neuro: Normal gait, Normal speech, Strength at 5/5 X4 ext, Normal tone, Sensation intact, Cranial nerves 3-12 NL, Reflexes 2+ Psych/Mental Status: Mental status NL, Mood NL laboratory and microbiology Laboratory Tests 09/22/24 05:27 Test 09/22/24 05:27 Range/Units Serum Glucose 86 74-106 mg/dL Microbiology Date/Time Source Procedure Growth Status 09/21/24 20:22 Voided Urine Urine Culture - Preliminary Resulted 09/20/24 12:10 Blood Blood Culture - Preliminary NO GROWTH AFTER 48 HOURS OF INCUBATION. Resulted 09/20/24 10:01 Nose MRSA Screen - Final Complete Labs and/or images reviewed: Labs reviewed by me, Image(s) reviewed by me Problem List/Assessment/Plan Problem List/Assessment/Plan Acute complicated UTI Hypotension UA shows UTI picture Urine culture pending Empiric antibiotic, meropenem (patient is allergic to Rocephin has history of UTI due to ESBL) IV fluid Pain management Possible post CA angina EKGs shows paced rhythm, with no significant ST or T-wave changes Trop I trend is within normal limits Cardiology consulted, recommended medical management Continue home meds Telemetry LENORA, likely VMN IV fluid History of Coronary artery disease (status CABG in 2010, LHC on 08/26/2024 at [facility], revealed triple-vessel disease) Systolic heart failure (EF 10%) Ischemic cardiomyopathy Gout Kidney stone, s/p ESWL History CVA Diverticulosis COPD (on home oxygen 2 L/min) Status post COVID Anxiety Depression GERD Parkinsonism Continue home meds Breathing treatment DIET: Cardiac diet DVT PROPHYLAXIS: Lovenox GI PROPHYLAXIS:: Protonix CODE STATUS: Goal of care discussed for more than 18 minutes, full code DISPOSITION: Telemetry Patient's status and plan discussed with the patient. Case discussed with Dr. Navarro. Plan discussed with: Patient, Other (RN) My Orders My Orders Orders - PHILL LEAL Procedure Category Date Status Time Meropenem 1gm Ivpb PHA 09/21/24 In Process (Merrem 1gm/ Ns) 22:00 PHILL LEAL RESDIDEBRA Sep 22, 2024 13:52
[2024-09-22] MEDS: SODIUM CHLORIDE 0.9% 250 ML IV ONE (14:05)
[2024-09-22] MEDS: SODIUM CHLORIDE 0.9% 150 ML IV ONE (14:26)
[2024-09-23] VITALS (15 sets, daily range): BP systolic 110–143; BP diastolic 40–79; PULSE 64–105; RESP 18–20; TEMP 36.8; O2SAT 93–100
[2024-09-23 06:03] LABS: Basophils # (auto) 0 10 ^3/uL (0-0.2); Basophils % (auto) 0.5 % (0.0-2.0); Eosinophils # (auto) 0.6 10 ^3/uL (0-0.8); Eosinophils % (auto) 8.6 % (0.0-7.0); Hematocrit 37.2 % (36.0-46.0); Hemoglobin 12.5 g/dL (12.2-16.2); Lymphocytes # (auto) 1.1 10 ^3/uL (0.4-5.4); Lymphocytes % (auto) 15.4 % (10.0-50.0); Mean Corpuscular Hemoglobin 29.6 pg (28.0-32.0); Mean Corpuscular Hgb Conc. 33.6 g/dL (32.0-36.0); Mean Corpuscular Volume 87.9 fL (80.0-100.0); Monocytes # (auto) 1.2 10 ^3/uL (0-1.3); Monocytes % (auto) 15.7 % (0.0-12.0); Neutrophils # (auto) 4.4 10 ^3/uL (1.6-8.6); Neutrophils % (auto) 59.8 % (37.0-80.0); Nucleated Red Blood Cells % 0.1 %; Platelet Count (auto) 210 10^3/uL (140-450); Red Blood Cells 4.23 10^6/uL (4.0-5.20); Red Cell Distribution Width 16.2 % (11.8-14.3); White Blood Cell 7.4 10^3/uL (4.4-10.8)
[2024-09-23 06:22] LABS: Alanine Aminotransferase 12 U/L (7-40); Albumin 4.2 g/dL (3.2-4.8); Alkaline Phosphatase 69 U/L (46-116); Anion Gap 2 (5-15); Aspartate Aminotransferase 16 U/L (13-40); BUN/Creatinine Ratio 20.2 (10.0-20.0); Bilirubin, Total 0.4 mg/dL (0.2-1.0); Blood Urea Nitrogen 22 mg/dL (9-23); Calcium 9.7 mg/dL (8.7-10.4); Carbon Dioxide 28 mmol/L (20-31); Glucose 89 mg/dL (74-106); Potassium 4.7 mmol/L (3.5-5.1); Sodium 138 mmol/L (136-145); Total Protein 6.2 g/dL (5.7-8.2)
[2024-09-23 06:24] LABS: Chloride 108 mmol/L (98-107)
[2024-09-23] MEDS ORDERED: CEPH500C PO (07:03)
--- NOTE | 2024-09-23 07:03 | DVHDSRES ---
Discharge Summary Date of Admission Resident Creating Document: PHILL LEAL RESDIDBERA Sep 20, 2024 at 07:03 Date of Discharge: Sep 23, 2024 Labs/Diagnostic Data: Laboratory Results Test 09/23/24 05:06 09/20/24 09:37 09/20/24 06:46 09/20/24 05:27 White Blood Count 7.4 10^3/uL (4.4-10.8) Red Blood Count 4.23 10^6/uL (4.0-5.20) Hemoglobin 12.5 g/dL (12.2-16.2) Hematocrit 37.2 % (36.0-46.0) Mean Corpuscular Volume 87.9 fL (80.0-100.0) Mean Corpuscular Hemoglobin 29.6 pg (28.0-32.0) Mean Corpuscular Hemoglobin Concent 33.6 g/dL (32.0-36.0) Red Cell Distribution Width 16.2 % (11.8-14.3) Platelet Count 210 10^3/uL (140-450) Mean Platelet Volume 8.1 fL (6.9-10.8) Neutrophils (%) (Auto) 59.8 % (37.0-80.0) Lymphocytes (%) (Auto) 15.4 % (10.0-50.0) Monocytes (%) (Auto) 15.7 % (0.0-12.0) Eosinophils (%) (Auto) 8.6 % (0.0-7.0) Basophils (%) (Auto) 0.5 % (0.0-2.0) Neutrophils # (Auto) 4.4 10 ^3/uL (1.6-8.6) Lymphocytes # (Auto) 1.1 10 ^3/uL (0.4-5.4) Monocytes # (Auto) 1.2 10 ^3/uL (0-1.3) Eosinophils # (Auto) 0.6 10 ^3/uL (0-0.8) Basophils # (Auto) 0 10 ^3/uL (0-0.2) Nucleated Red Blood Cells 0.1 % Sodium Level 138 mmol/L (136-145) Potassium Level 4.7 mmol/L (3.5-5.1) Chloride Level 108 mmol/L (98-107) Carbon Dioxide Level 28 mmol/L (20-31) Anion Gap 2 (5-15) Blood Urea Nitrogen 22 mg/dL (9-23) Creatinine 1.09 mg/dL (0.550-1.02) Glomerular Filtration Rate Calc 51 mL/min (>90) BUN/Creatinine Ratio 20.2 (10.0-20.0) Serum Glucose 89 mg/dL (74-106) Calcium Level 9.7 mg/dL (8.7-10.4) Total Bilirubin 0.4 mg/dL (0.2-1.0) Aspartate Amino Transferase (AST) 16 U/L (13-40) Alanine Aminotransferase (ALT) 12 U/L (7-40) Alkaline Phosphatase 69 U/L (46-116) Total Protein 6.2 g/dL (5.7-8.2) Albumin 4.2 g/dL (3.2-4.8) Troponin I High Sensitivity 24 ng/L (</=34) Urine Color Yellow (Yellow) Urine Clarity Turbid (Clear) Urine pH 7.5 (5.0-9.0) Urine Specific [place] 1.025 (1.001-1.035) Urine Protein 1+ (Negative) Urine Ketones Negative (Negative) Urine Blood Negative /uL (Negative) Urine Nitrite Negative (Negative) Urine Bilirubin Negative (Negative) Urine Urobilinogen Normal mg/dL (Negative) Urine Leukocyte Esterase 3+ /uL (Negative) Urine RBC 11 /hpf (0 - 4) Urine Microscopic WBC 25 /HPF (0-5) Urine Squamous Epithelial Cells Mod /hpf (<5) Urine Bacteria Few /hpf (None Seen) Urine Glucose Normal mg/dL (Normal) Prothrombin Time 11.2 sec (9.3-11.8) Prothrombin Time INR 1.06 (0.9-1.15) Activated Partial Thromboplast Time 28.3 SEC (24.5-34.5) Magnesium Level 2.2 mg/dL (1.6-2.6) B-Type Natriuretic Peptide 901.00 pg/mL (0-100) Other Laboratory Tests 09/23/24 05:06 Final Diagnosis/Problems List UTI Discharge Disposition: Assisted Living Facility Discharge Instruct/Medications Diet: Cardiac 2g Na,low cholest Activity: No Restrictions, As Tolerated Follow Up/Referral: Follow up with the PCP within 1 week of the discharge. Medications: Keflex 500 mg twice a day for 4 days. Continue home meds Discharge Statement: "Patient was advised to return to the ER or call 911 if any headaches, dizziness, shortness of breath, chest pain, abdominal pain, bleeding, fevers, or worsening of medical condition. Patient was counseled about treatment plan, medications, possible side effects, patientverbalized understanding. All questions were answered to the best of my ability. This discharge took greater then 30 minutes in planning, reviewing documentation, counseling the patient, and discussing with other team members." ASSESSMENT ASSESSMENT Assessment [facility] PHILL LEAL Sep 23, 2024 07:03
--- NOTE | 2024-09-23 07:16 | DVHPN2 ---
Progress Note - Dictate Date Seen: Sep 23, 2024 Has the PT tested + for MRSA If YES, has PT been informed?: No Medical Necessity Reason Pt with a Central, PICC or Fol: No vital signs Vital Sign Date Time Temp Pulse Resp B/P (MAP) Pulse Ox O2 Delivery O2 Flow Rate FiO2 09/23/24 06:27 69 16 117/78 09/23/24 05:36 99 09/23/24 05:30 Nasal Cannula 3.0 09/23/24 05:30 32 09/23/24 05:00 97.9 97.9 Total Intake and Output 09/22/24 09/22/24 09/23/24 15:00 23:00 07:00 Intake Total 530 ml 830 ml 50 ml Output Total 650 ml 400 ml Balance 530 ml 180 ml -350 ml medications Current Medications Medications Dose Ordered Sig/Asha Route Start Time Stop Time Status Last Admin Dose Admin Ondansetron HCl 4 mg Q4HP PRN IV 09/20/24 07:00 09/23/24 04:49 4 MG Acetaminophen 650 mg Q6HP PRN PO 09/20/24 07:00 Morphine Sulfate 2 mg Q4HPRN PRN IV 09/20/24 07:00 09/23/24 06:27 2 MG Nitroglycerin 0.4 mg Q5MINP PRN SL 09/20/24 07:00 Aspirin 81 mg DAILY PO 09/20/24 10:00 09/22/24 10:49 81 MG Atorvastatin Calcium 40 mg HS PO 09/20/24 22:00 09/22/24 23:02 40 MG Clopidogrel Bisulfate 75 mg DAILY PO 09/20/24 10:00 09/22/24 10:49 75 MG Duloxetine HCl 30 mg DAILY PO 09/20/24 10:00 09/22/24 10:50 30 MG Oxybutynin Chloride 5 mg Q8HR PO 09/20/24 14:00 09/23/24 06:18 5 MG Pantoprazole Sodium 40 mg DAILY PO 09/20/24 10:00 09/22/24 10:50 40 MG Ranolazine 500 mg BID PO 09/20/24 10:00 09/22/24 23:03 500 MG Spironolactone 25 mg DAILY PO 09/20/24 10:00 09/22/24 10:52 25 MG Fluoxetine HCl 20 mg DAILY PO 09/20/24 10:00 Hold Metoprolol Succinate 25 mg DAILY PO 09/20/24 10:00 09/20/24 10:40 25 MG Albuterol 2.5 mg Q4HPRN PRN NEB 09/20/24 07:00 Ipratropium [place] 0.5 mg Q4HPRN PRN NEB 09/20/24 07:00 Ipratropium [place] 0.5 mg Q6HR NEB 09/20/24 12:00 09/23/24 05:30 0.5 MG Albuterol 2.5 mg Q6HR NEB 09/20/24 12:00 09/23/24 05:30 2.5 MG Hydralazine HCl 10 mg Q6HP PRN IV 09/20/24 08:30 Oxycodone/ Acetaminophen 2 tab Q4HP PRN PO 09/21/24 12:00 09/23/24 04:50 2 TAB Meropenem 50 ml @ 17 mls/hr Q12HR IV 09/21/24 22:00 09/22/24 23:03 17 MLS/HR laboratory and microbiology Laboratory Tests 09/23/24 05:06 Test 09/23/24 05:06 Range/Units Serum Glucose 89 74-106 mg/dL Assessment/Plan Patient is a 79-year-old female who presented to the hospital with chest discomfort. She mentions that she was in another facility recently and they stopped all her usual medications. She mentions and she started having some chest discomfort and decided to come to the hospital to restart back her usual medications. Cardiology is involved for cardiac aspects of care. Patient is known to our practice from before and outside. Lying comfortably flat in bed, no JVD, pink and wet mucosa, no carotid bruit, no goiter, lungs: Not using accessory muscles of breathing, lungs reveal scattered rhonchi, cardiac: Regular regular, no thrill/gallop, 2+murmur in apex, abdomen: Soft, no hepatomegaly, some suprapubic and upper epigastric tenderness is positive, no rebound tenderness, extremities: No edema, dorsalis pedis is 2+ bilateral. Right femoral/groin area with no hematoma. Past medical history includes hypertension, hyperlipidemia, coronary artery disease, history of CABG (2010), systolic heart failure, ischemic cardiomyopathy, gout, kidney stone, s/p ESWL, frequent UTI, history of CVA, Diverticulosis, COPD, s/p COVID, depression, Anxiety, GERD, history of appendectomy/hysterectomy/tonsillectomy, and history of BiV ICD (Biotronik) implantation. She is chronically wheelchair-bound. She was previously in hospice for heart failure. She is allergic to codeine. She quit smoking years ago. She is DNR. She also has diagnosis of parkinsonism. Cardiac catheterization of August 26, 2024 (performed in [facility]) revealed triple-vessel agdaagux coronary artery disease. FINAL DRESSING CUTTER of obtuse marginal. FINAL DRESSING CUTTER of RCA. Lad with 75% lesion and status post drug-eluting stent deployment. It is of note that there is patent SVG to obtuse marginal and also patent SVG to RCA. Cardiac catheterization of September 2020 revealed ejection fraction of 20%, FINAL DRESSING CUTTER of SVG to diagonal, patent TAN, patent SVG to OM, patent SVG to PDA and FINAL DRESSING CUTTER of RCA. Echocardiogram of September 04, 2024 reported: Dilated left ventricle. LVEF of 10%. Increased EDP. Pacing wire in right-sided chambers. Mild mitral regurgitation. As there was no good tricuspid regurgitation jet, right ventricular systolic pressure could not be estimated Echocardiogram of August 25, 2024 (performed in [facility]) for PE old ejection fraction of 20% Echocardiogram of reported: LV EF of 15-20%, biatrial enlargement, pacing wire in the right-sided chambers. Echocardiogram of November 22, 2023 revealed: Dilated left ventricle, LVEF of 10%, pacing wire and right-sided chambers, mild mitral regurgitation. Echocardiogram of August 28, 2023 revealed: Dilated left ventricle with significantly reduced systolic function. LVEF of 20%. Elevated LVEDP, dilated four chambers. Pacing wire was seen in right-sided chamber. [id number] MR. Echocardiogram of January 03, 2023 revealed ejection fraction of 20 to 25% and mild left ventricular enlargement Echocardiogram of March 25, 2023 (performed in the office) revealed four- chamber dilatation, LVEF of 20 to 25%, mild to moderate MR, mild TR, trace pulmonary valve insufficiency and right ventricular systolic pressure of 35 mmHg Echocardiogram of March 21, 2022 revealed ejection fraction of around 20%, mild MR/TR Echocardiogram of February 17, 2021 revealed dilated LV, LVEF around 25%, severe diffuse hypokinesis, increased LVEDP, dilated left and right atria, mild to moderate MR, mild TR. Echocardiogram of December 30, 2020 reported ejection fraction less than 20% and dilated left atrium. Echocardiogram of August 2020 revealed ejection fraction less than 25%, right atrial enlargement, left atrial enlargement and moderate MR. Creatinine: 1.0 - 1.36 - 1.06 - 1.09 Potassium: 4.4 - 4.4 - 4.3 - 4.7 Troponin (high sensitive): 25 - 25 - 24 BNP: 901 Chest x-ray revealed: IMPRESSION: 1. No acute disease. EKG shows a sensed, V paced rhythm Tele shows sinus rhythm, V paced Patient is a 79-year-old female we will came through with atypical chest discomfort. Presentation is not considered acute coronary syndrome. To be kept on aspirin/Plavix. Presentation questions URI/bronchitis/COPD exacerbation. Does have baseline history of ischemic/systolic heart failure which at this point is considered compensated. She is DNR. At this point no ischemic work-up is indicated. As per patient, the patient's usual medications were held by mistake in other hospitals visit and were not given to her while she was back to her group home. Chest pain, atypical Bronchitis/URI COPD exacerbation Ischemic cardiomyopathy, history of Coronary artery disease, status post CABG Status post PCI Diverticular disease Renal calculi Emphysema Kidney stone, history of Coronary artery disease, SP CABG GERD Hypertension Hyperlipidemia Gout Constipation UTI Cardiac suggestion for management: Manage on telemetry Follow-up electrolytes and kidney function tests and correct abnormalities No indication for ischemic work up at this point Continue Aspirin/Plavix Continue Toprol-XL/Entresto/Aldactone/Ranolazine/Atorvastatin Management of URI/bronchitis/COPD exacerbation as per primary team/pulmonology. Cardiac monge, is stable and can be followed as outpatient Further evaluation and management depends on the above and clinical course A total of 75 minutes was spent reviewing the patient record, examining the patient, making a diagnostic and therapeutic plan, discussing this plan with medical personnel, following up on diagnostic studies and following the patient for clinical stability excluding any and all procedures. At least 50% of this time was spent in direct, [id number] contact. Thank you for allowing me to participate in this patient's care. Further recommendations will depend on patient's clinical course. Please do not hesitate to contact me if you have any questions or concerns. This medical document was created using electronic medical record system with [employer] computerized dictation system. Although this document has been carefully reviewed, there may still be some phonetic and typographical errors. These areas are purely typographical due to the imperfection of the software programs, and do not reflect any compromise in the patient's medical care. Dietary Evaluation Review Comments: Follow the cardiac diet. Monitor PO intake to meet 75% of her needs Expected Outcomes/Goals: gradual wt loss. Plan discussed with: Patient, Other (nurse) RODRIGUEZ LEBRON MD Sep 23, 2024 07:16
[2024-09-23] MEDS ORDERED: [UNRECOGNIZED DRUG - CODE] PO (11:15)
--- NOTE | 2024-09-23 11:18 | DVHDSRES ---
Discharge Summary Date of Admission Resident Creating Document: PHILL LEAL RESDIENT Sep 20, 2024 at 07:03 Date of Discharge: Sep 23, 2024 Admitting Diagnosis UTI Labs/Diagnostic Data: Laboratory Results Test 09/23/24 05:06 09/20/24 09:37 09/20/24 06:46 09/20/24 05:27 White Blood Count 7.4 10^3/uL (4.4-10.8) Red Blood Count 4.23 10^6/uL (4.0-5.20) Hemoglobin 12.5 g/dL (12.2-16.2) Hematocrit 37.2 % (36.0-46.0) Mean Corpuscular Volume 87.9 fL (80.0-100.0) Mean Corpuscular Hemoglobin 29.6 pg (28.0-32.0) Mean Corpuscular Hemoglobin Concent 33.6 g/dL (32.0-36.0) Red Cell Distribution Width 16.2 % (11.8-14.3) Platelet Count 210 10^3/uL (140-450) Mean Platelet Volume 8.1 fL (6.9-10.8) Neutrophils (%) (Auto) 59.8 % (37.0-80.0) Lymphocytes (%) (Auto) 15.4 % (10.0-50.0) Monocytes (%) (Auto) 15.7 % (0.0-12.0) Eosinophils (%) (Auto) 8.6 % (0.0-7.0) Basophils (%) (Auto) 0.5 % (0.0-2.0) Neutrophils # (Auto) 4.4 10 ^3/uL (1.6-8.6) Lymphocytes # (Auto) 1.1 10 ^3/uL (0.4-5.4) Monocytes # (Auto) 1.2 10 ^3/uL (0-1.3) Eosinophils # (Auto) 0.6 10 ^3/uL (0-0.8) Basophils # (Auto) 0 10 ^3/uL (0-0.2) Nucleated Red Blood Cells 0.1 % Sodium Level 138 mmol/L (136-145) Potassium Level 4.7 mmol/L (3.5-5.1) Chloride Level 108 mmol/L (98-107) Carbon Dioxide Level 28 mmol/L (20-31) Anion Gap 2 (5-15) Blood Urea Nitrogen 22 mg/dL (9-23) Creatinine 1.09 mg/dL (0.550-1.02) Glomerular Filtration Rate Calc 51 mL/min (>90) BUN/Creatinine Ratio 20.2 (10.0-20.0) Serum Glucose 89 mg/dL (74-106) Calcium Level 9.7 mg/dL (8.7-10.4) Total Bilirubin 0.4 mg/dL (0.2-1.0) Aspartate Amino Transferase (AST) 16 U/L (13-40) Alanine Aminotransferase (ALT) 12 U/L (7-40) Alkaline Phosphatase 69 U/L (46-116) Total Protein 6.2 g/dL (5.7-8.2) Albumin 4.2 g/dL (3.2-4.8) Troponin I High Sensitivity 24 ng/L (</=34) Urine Color Yellow (Yellow) Urine Clarity Turbid (Clear) Urine pH 7.5 (5.0-9.0) Urine Specific [place] 1.025 (1.001-1.035) Urine Protein 1+ (Negative) Urine Ketones Negative (Negative) Urine Blood Negative /uL (Negative) Urine Nitrite Negative (Negative) Urine Bilirubin Negative (Negative) Urine Urobilinogen Normal mg/dL (Negative) Urine Leukocyte Esterase 3+ /uL (Negative) Urine RBC 11 /hpf (0 - 4) Urine Microscopic WBC 25 /HPF (0-5) Urine Squamous Epithelial Cells Mod /hpf (<5) Urine Bacteria Few /hpf (None Seen) Urine Glucose Normal mg/dL (Normal) Prothrombin Time 11.2 sec (9.3-11.8) Prothrombin Time INR 1.06 (0.9-1.15) Activated Partial Thromboplast Time 28.3 SEC (24.5-34.5) Magnesium Level 2.2 mg/dL (1.6-2.6) B-Type Natriuretic Peptide 901.00 pg/mL (0-100) Other Laboratory Tests 09/23/24 05:06 Brief Hx & Hospital Course: Year old female with past medical history coronary artery disease and recurrent UTI brought to the hospital from assisted care facility due to abdominal pain and chest pain. Chest pain is localized at left-sided, nonradiating, constant, pressure-like 10/10 and worsened with cough. Abdominal pain is localized at lower abdomen, radiating to back, constant, 7/10 with no clear exacerbating or relieving factor. Patient also reports, bilateral flank discomfort, fever, nausea, dysuria, urgency and frequency. She denies headache, shortness of breaths, or any recent bowel habit changes. Previous hospitalization: Patient was discharged on 09/06/2024, had admitted due to chest pain, ruled out ACS. PMHx: Coronary artery disease (status CABG in 2010, [facility] on 08/26/2024 at [facility], revealed triple-vessel disease) systolic heart failure (EF 10%), ischemic cardiomyopathy, gout, kidney stone, s/p ESWL, CVA, diverticulosis, COPD (on home oxygen 2 L/min), status post COVID, anxiety, depression, GERD, and parkinsonism PSHx: 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, appendectomy, hysterectomy, BiV ICD (Biotronik) implantation, CABG Family history: Not contributed Social history: Ex-smoker, wheelchair-bound, lives at the facility, denies current drug use. Home medication: Aspirin, Plavix, atorvastatin, metoprolol, Entresto, Aldactone, ranolazine, inhalers Allergic history: Ceftriaxone and hydrocodone Hospital course: Patient was admitted on the line of acute complicated UTI. Patient was started on empiric antibiotic of empiric opinion ( patient is allergic to Rocephin has history of UTI due to ESBL). Patient was also complaining of chest pain, EKGs shows paced rhythm, with no significant ST or T-wave changes, Trop I trend is within normal limits, Cardiology consulted, recommended medical management. Cardiac home medication were continued. Urine culture result negative. Home oxygen, 2 L/min were continued during hospital admission. On , the patient was feeling better since admission. Discharge plan discussed with the patient the patient discharged home. Discharge plan: Continue with the PCP within 1 week after discharge Keflex 500 mg b.i.d. for 4 days Phenazopyridine 100 mg t.i.d. for 10 days Continue home meds Condition at Discharge: Stable Final Diagnosis/Problems List Acute complicated UTI Chest pain, Possible post VA angina LENORA, likely VMN Ruled out ACS History of Coronary artery disease (status CABG in 2010, LHC on 08/26/2024 at [facility], revealed triple-vessel disease) Chronic Systolic heart failure (EF 10%), NYHA class 4 Status post pacemaker Urinary incontinence, overactive bladder Ischemic cardiomyopathy Gout Kidney stone, s/p ESWL History CVA Diverticulosis COPD (on home oxygen 2 L/min), stable, no exacerbation Status post COVID Anxiety Depression GERD Parkinsonism Renal calculi Emphysema Hyperlipidemia Constipation Discharge Disposition: Home Discharge Instruct/Medications Diet: Cardiac 2g Na,low cholest Activity: No Restrictions, As Tolerated Follow Up/Referral: Follow up with the PCP within 1 week of the discharge. Medications: Keflex 500 mg twice a day for 4 days. Phenazopyridine three times a day, after meal Continue home meds Discharge Statement: "Patient was advised to return to the ER or call 911 if any headaches, dizziness, shortness of breath, chest pain, abdominal pain, bleeding, fevers, or worsening of medical condition. Patient was counseled about treatment plan, medications, possible side effects, patientverbalized understanding. All questions were answered to the best of my ability. This discharge took greater then 30 minutes in planning, reviewing documentation, counseling the patient, and discussing with other team members." ASSESSMENT ASSESSMENT Assessment UTI PHILL LEAL Sep 23, 2024 11:17
== END 2024-09-23 12:40 | disposition home or self-care (01) | DRG 314 ==
LOC: EDBD 03:38 → ER 03:38 → OVERFLOW 07:03 → TELE-CENTR 10:59
PROVIDERS: ADMIT Student in an Organized Health Care Education/Training Program; ATTEND Emergency Medicine
DX: I23.7 Postinfarction angina (principal); N17.0 Acute kidney failure with tubular necrosis; I50.22 Chronic systolic (congestive) heart failure; N39.0 Urinary tract infection, site not specified; I13.0 Hypertensive heart and chronic kidney disease with heart failure and stage 1 through stage 4 chronic kidney disease, or unspecified chronic kidney disease; K21.9 Gastro-esophageal reflux disease without esophagitis; N20.0 Calculus of kidney; I25.10 Atherosclerotic heart disease of native coronary artery without angina pectoris; I25.5 Ischemic cardiomyopathy; M10.9 Gout, unspecified; J06.9 Acute upper respiratory infection, unspecified; E78.00 Pure hypercholesterolemia, unspecified; F41.9 Anxiety disorder, unspecified; N32.81 Overactive bladder; R32 Unspecified urinary incontinence; J43.9 Emphysema, unspecified; K59.00 Constipation, unspecified; N18.9 Chronic kidney disease, unspecified; E11.22 Type 2 diabetes mellitus with diabetic chronic kidney disease; Z66 Do not resuscitate; K57.30 Diverticulosis of large intestine without perforation or abscess without bleeding; D64.9 Anemia, unspecified; G20.C Parkinsonism, unspecified; I25.2 Old myocardial infarction; Z87.440 Personal history of urinary (tract) infections; Z82.49 Family history of ischemic heart disease and other diseases of the circulatory system; Z88.1 Allergy status to other antibiotic agents; Z88.5 Allergy status to narcotic agent; Z88.8 Allergy status to other drugs, medicaments and biological substances; Z79.899 Other long term (current) drug therapy; Z79.1 Long term (current) use of non-steroidal anti-inflammatories (NSAID); Z79.82 Long term (current) use of aspirin; Z90.710 Acquired absence of both cervix and uterus; Z95.1 Presence of aortocoronary bypass graft; Z90.49 Acquired absence of other specified parts of digestive tract; Z87.442 Personal history of urinary calculi; Z99.81 Dependence on supplemental oxygen; Z79.02 Long term (current) use of antithrombotics/antiplatelets; Z82.3 Family history of stroke; Z87.891 Personal history of nicotine dependence; Z99.3 Dependence on wheelchair; Z83.3 Family history of diabetes mellitus; Z95.5 Presence of coronary angioplasty implant and graft; Z86.16 Personal history of COVID-19; Z86.73 Personal history of transient ischemic attack (TIA), and cerebral infarction without residual deficits; Z95.810 Presence of automatic (implantable) cardiac defibrillator; J44.9 Chronic obstructive pulmonary disease, unspecified
CPT/HCPCS: 36415; 71045; 80053; 81001; 83735; 83880; 84484; 85025; 85610; 85730; 87040; 87081; 87086; 93005; 94640; 96374; 96375; G0378; J2185; J2405; J7060

== ENCOUNTER 2024-09-25 13:30 | Inpatient (IN) | payer OTHER, MEDICAID ==
[~2024-09-25] VITALS: Ht 160 cm; Wt 49.0 kg
[~2024-09-25 13:30] MED LIST changes: +CEPH500C PO; +[UNRECOGNIZED DRUG - CODE] PO
--- NOTE | 2024-09-25 13:54 | ED.PDOC ---
History of Present Illness HPI Comments 79F BIBA w/ prior MHx of Anemia, Anxiety, Asthma, CAD, CHF, COPD, Depression, GERD, Gout, High Lipids, HTN, Kidney Stones, ND recently in 2 1/2 weeks w/ total of 8; SHx of PTCA x8, Appendectomy, 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, Pacemaker, Hysterectomy, CABG, Back Sx and c/c Left sided CP which radiates down to the left lower rib.Pt reports on being discharged from [facility] 2 days ago for a UTI and immediately after having CP. Pt was pciked up via [facility]. Pt notes a 03/05 CP. Denies chills, fever, N/V/D, SOB. Chief Complaint: Chest Pain Time Seen by MD: 13:30 Primary Care Provider: HORTENCIA Reviewed Notes: Nurses Notes, Industrial Laborer Notes, Medications, Allergies Allergies: Coded Allergies: Ceftriaxone (Verified Allergy, Intermediate, generalized rash, 11/08/22) MANAGER ENGINECARLENE MEJIA Hydrocodone (Verified Allergy, Unknown, rash, 05/18/23) tylenol is okay per patient Home Meds Active Scripts Phenazopyridine HCl (Eq Urinary Pain Relief Ma) 99.5 Mg Tab, 99.5 MG PO TID for 10 Days, #30 TAB Prov:PHILL LEAL RESDIENT 09/23/24 Cephalexin Monohydrate (Cephalexin) 500 Mg Cap, 1 CAP PO BID for 4 Days, #10 CAP Prov:PHILL LEAL RESDIENT 09/23/24 Metoprolol Succinate (Metoprolol Succinate Er) 25 Mg Tab, 1 TAB PO DAILY for 30 Days, #30 TAB 5 Refills Prov:AXEL CARABALLO RESIDENT 09/06/24 Spironolactone (Aldactone) 25 Mg Tab, 25 MG PO DAILY for 30 Days, #30 TAB Prov:BHARAT MICHELLE RESIDENT 07/22/24 Oxybutynin Chloride (Oxybutynin Chloride) 5 Mg Tab, 5 MG PO Q8HR for 30 Days, #90 TAB Prov:BHARAT MICHELLE RESIDENT 07/22/24 Atorvastatin Calcium (ATORVASTATIN CALCIUM) 20 Mg Tab, 40 MG PO HS for 30 Days, #60 TAB Prov:BHARAT MICHELLE RESIDENT 07/22/24 Acetaminophen (Acetaminophen) 325 Mg Tab, 650 MG PO TID for 10 Days, #60 TAB Prov:BHARAT MICHELLE RESIDENT 07/22/24 Duloxetine Hydrochloride (Duloxetine Hydrochloride) 30 Mg Cap, 30 MG PO DAILY for 30 Days, #30 CAP Prov:WINSOME GOMEZ MD 04/29/24 Clopidogrel Bisulfate (CLOPIDOGREL) 75 Mg Tab, 75 MG PO DAILY for 30 Days, #30 TAB 5 Refills Prov:YENNY FRAIRE MD 11/26/23 Ranolazine (Ranolazine ER) 500 Mg Tab, 500 MG PO BID for 30 Days, #60 TAB 2 Refills Prov:MAGAN RUSS RESIDENT 09/16/23 Reported Medications Polyethylene Glycol 3350 (Miralax) 17 Gm Pow, 17 GM PO DAILY PRN for FOR CONSTIP ATION for 30 Days, #30 01/28/24 Ipratropium-Albuterol (Ipratropium Roxana/Albut) 1 Yuli Yuli, 1 VIAL NEB Q6HPRN PRN for SHORTNESS OF BREATH for 13 Days, #180 09/05/23 Fluticasone-Salmeterol (Fluticasone Propionate/SA 250-50 Mcg/Dose) 1 Aer Aer, 1 PUFF INH BID for 30 Days, #60 09/05/23 Albuterol Sulfate (Albuterol Sulfate Hfa) 108 Mcg/Act Aer, 2 PUFF INH Q4HPRN PRN for dyspnea for 17 Days, #18 09/05/23 Cholecalciferol (VITAMIN D3) 2,000 Unit Tab, 1 TAB PO BID for 30 Days, #60 08/28/23 Multiple Vitamin (Tab-A-Radha) Tab, 1 TAB PO DAILY for 30 Days, #30 08/28/23 Aspirin (Aspir-Low) 81 Mg Tab, 1 TAB PO DAILY for 30 Days, #30 08/28/23 Ascorbic Acid (VITAMIN C TABLET) 500 Mg Tb, 1 TAB PO BID for 30 Days, #60 05/18/23 Pantoprazole Sodium Sesquihydr (Pantoprazole Sodium) 40 Mg Tab, 1 TAB PO DAILY 05/18/23 Fluoxetine HCl (Pmdd) (Fluoxetine HCl) 20 Mg Tab, 20 MG PO DAILY, TAB 05/30/20 Information Source: Patient, Emergency Med Personnel Mode of Arrival: EMS Severity: Moderate Timing: Days Duration: Since onset, Days Prehospital treatment: None Past Medical History PAST MEDICAL HISTORY: Anemia, Anxiety, Asthma, CAD, CHF, CKF (Stage 3), COPD, CVA, Depression, GERD, Gout, High Lipids, HTN, Kidney Stones, ND (recently being 2 1/2 weeks of a total of 8 ND's), UTI'S Past Medical History (Other): Home O2 of 2L Surgical History: Appendectomy, CABG, Hysterectomy, Pacemaker, PTCA (total of 8), 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 Surgical History (Other): Back Sx FIBER ARTIST History: Ovarian Cysts Family History Family History: Reviewed,noncontributory to illness, Unknown Social History Smoker: Non-Smoker Alcohol: Denies ETOH Use Drugs: Denies Drug Use Lives In: Assisted Care Constitutional: denies: chills, diaphoresis, fatigue, fever, malaise, sweats, weakness, others EENTM: denies: blurred vision, double vision, ear bleeding, ear discharge, ear drainage, ear pain, ear ringing, eye pain, eye redness, hearing loss, mouth pain, mouth swelling, nasal discharge, nose bleeding, nose congestion, nose pain, photophobia, tearing, throat pain, throat swelling, voice changes, others Respiratory: denies: cough, hemoptysis, orthopnea, SOB at rest, shortness of breath, SOB with excertion, stridor, wheezing, others Cardiovascular: reports: chest pain; denies: dizzy spells, diaphoresis, Dyspnea on exertion, edema, irregular heart beat, left arm pain, lightheadedness, palpitations, PND, syncope, others Gastrointestinal: reports: nausea; denies: abdomen distended, abdominal pain, blood streaked bowels, constipated, diarrhea, dysphagia, difficulty swallowing, hematemesis, melena, poor appetite, poor fluid intake, rectal bleeding, rectal pain, vomiting, others Genitourinary: denies: abnormal vagina bleeding, burning, dyspareunia, dysuria, flank pain, frequency, hematuria, incontinence, pain, , vagina discharge, urgency, others Neurological: denies: dizziness, fainting, headache, left sided numbness, left sided weakness, numbness, paresthesia, pre-existing deficit, right sided numbness, right sided weakness, seizure, speech problems, tingling, tremors, weakness, others Musculoskeletal: denies: back pain, gout, joint pain, joint swelling, muscle pain, muscle stiffness, neck pain, others Integumetry: denies: bruises, change in color, change in hair/nails, dryness, laceration, lesions, lumps, rash, wounds, others Allergic/Immunocompromised: denies: Difficulty Healing, Frequent Infections, Hives, Itching, others Hematologic/Lymphatic: denies: anemia, blood clots, easy bleeding, easy bruising, swollen glands, others Endocrine: denies: excessive hunger, excessive sweating, excessive thirst, excessive urination, flushing, intolerance to cold, intolerance to heat, unexplained weight gain, unexplained weight loss, others Psychiatric: denies: anxiety, bipolar disorder, depression, hopeless, panic disorder, schizophrenia, sleepless, suicidal, others All Other Systems: Reviewed and Negative Physical Exam General Appearance: Moderate Distress HEENT: Pale Conjuntivae (L), Pale Conjuntivae (R), Pharynx Normal, TMs Normal Neck: Full Range of Motion, Non-Tender, Normal, Normal Inspection Respiratory: Chest Non-Tender, Lungs Clear, No Accessory Muscle Use, No Respiratory Distress, Normal Breath Sounds Cardiovascular: No Edema, No JVD, No Murmur, No Gallop, Normal Peripheral Pulses, Regular Rate/Rhythm, Other (Pacer in place) Breast Exam: Deferred Gastrointestinal: No Organomegaly, Non Tender, No Pulsatile Mass, Normal Bowel Sounds, Soft Genitalia: Deferred Pelvic: Deferred Rectal: Deferred Extremities: No calf tenderness, Normal capillary refill, Normal inspection, Normal range of motion, Non-tender, No pedal edema Musculoskeletal : Apperance: Normal Neurologic: Alert, material engineer II-XII nml as Tested, Motor Weakness, Normal Affect, Normal Mood, No Sensory Deficits Cerebellar Function: Normal Reflexes: Normal Skin: Dry, Pallor, Warm Lymphatic: No Adenopathy Was a procedure done? Was a procedure done?: Yes Sedation Sedation?: No Central Line Recorder of insertion practice: Culinary Arts Teacher Occupation of pin inserter: Attending Physician Indication: Hypotension, Volume resuscitation, Suspected infection Room prepared for procedure: Yes Culinary Arts Teacher performed hand hygien: Yes Maximal sterile barrier precau: Mask/Eye shield, Sterile gown, Cap, Sterlie gloves, Large sterlie drape Skin Preparation: Chlorhexidine gluconate Skin preparation completely dr: Yes Insertion site: Right, Femoral Central line catheter type: [id number] dialysis Number of lumens: 3 Central line exchanged over a: No Antiseptic ointment applied to: Yes Informed consent obtained: Yes Risks/benefits/alt described: Yes EKG EKG : Pulse Rate (adult): 79 [place]: Normal Cardiac Rhythm: Paced Block: None Differential Dx Considerations may include: Sepsis, generalized weakness, electrolyte imbalance, dehydration X-Ray, Labs, Meds, VS Vital Signs Date Time Temp Pulse Resp B/P (MAP) Pulse Ox O2 Delivery O2 Flow Rate FiO2 09/25/24 15:49 89 09/25/24 14:25 92 09/25/24 13:33 98.2 75 16 99/72 (81) 92 98.2 09/25/24 13:30 75 Lab Test 09/25/24 16:10 09/25/24 15:39 09/25/24 15:08 09/25/24 13:55 Range/Units Troponin I High Sensitivity 32 42 *H </=34 ng/L POC Glucose 148 H 70-106 mg/dl Sodium Level 143 # 136-145 mmol/L Potassium Level 4.6 3.5-5.1 mmol/L Chloride Level 104 98-107 mmol/L Carbon Dioxide Level 24 20-31 mmol/L Anion Gap 15 5-15 Blood Urea Nitrogen 29 H 9-23 mg/dL Creatinine 1.42 #H 0.550-1.02 mg/dL Glomerular Filtration Rate Calc 37 >90 mL/min BUN/Creatinine Ratio 20.4 H 10.0-20.0 Serum Glucose 125 H 74-106 mg/dL Calcium Level 11.7 H 8.7-10.4 mg/dL White Blood Count 14.8 #H 4.4-10.8 10^3/uL Red Blood Count 5.65 H 4.0-5.20 10^6/uL Hemoglobin 16.8 #H 12.2-16.2 g/dL Hematocrit 50.1 #H 36.0-46.0 % Mean Corpuscular Volume 88.6 80.0-100.0 fL Mean Corpuscular Hemoglobin 29.7 28.0-32.0 pg Mean Corpuscular Hemoglobin Concent 33.5 32.0-36.0 g/dL Red Cell Distribution Width 16.4 H 11.8-14.3 % Platelet Count 316 140-450 10^3/uL Mean Platelet Volume 8.2 6.9-10.8 fL Neutrophils (%) (Auto) 80.3 H 37.0-80.0 % Lymphocytes (%) (Auto) 11.2 10.0-50.0 % Monocytes (%) (Auto) 6.0 0.0-12.0 % Eosinophils (%) (Auto) 2.0 0.0-7.0 % Basophils (%) (Auto) 0.5 0.0-2.0 % Neutrophils # (Auto) 11.9 H 1.6-8.6 10 ^3/uL Lymphocytes # (Auto) 1.7 0.4-5.4 10 ^3/uL Monocytes # (Auto) 0.9 0-1.3 10 ^3/uL Eosinophils # (Auto) 0.3 0-0.8 10 ^3/uL Basophils # (Auto) 0.1 0-0.2 10 ^3/uL Nucleated Red Blood Cells 0.0 % IV Hep-Lock was established. The CBC shows an elevated white blood cell count 14.8 The rest of the CBC is within normal limits. CAT scan of the abdomen and pelvis shows: IMPRESSION: 1. Punctate nonobstructing calculus lower pole left kidney 2. 11-12 mm hypodense cortical cysts left kidney 3. Bilateral laminectomy at L3-4 and 5 with bony fusion of the articular facets bilaterally. The chest x-ray shows: No sign of any abnormalities The patient's CBC shows an elevated white blood cell count of 14.8 The rest of the CBC is within normal limits The chemistry panel shows a BUN of 29 a creatinine of 1.42 The troponin level was elevated at 42 but has come down to 32 We are going to hydrate the patient as in sepsis protocol There is a concern because the patient was hypotensive The patient will receive vancomycin as well as Levaquin Blood cultures and lactic acid level is being drawn The patient was being admitted at this time While in the emergency department's the patient had a hypotensive episode Images Reviewed?: Images reviewed and evaluated by me Time of 1ST Reevaluation: 14:00 Reevaluation 1ST: Unchanged Time of 2ND Reevaluation: 15:41 Reevaluation 2ND: Unchanged Patient Education/Counseling: Diagnosis, Treatment, Prognosis Family Education/Counseling: No Family Present Departure 1 Departure Time of Disposition: 15:41 Impression: Primary Impression: Acute chest pain Additional Impressions: Acute coronary syndrome Hypotension Qualified Codes: I95.9 - Hypotension, unspecified Disposition: 09 ADMITTED INPATIENT Admit to: TOR Condition: Fair Critical Care Note Critical Care Time?: Yes (45 min-critical care time only) Stability Stability form required: Yes Unstable for transfer: ICU, CCU, PCU, TOR (Intensive VS monitoring), ED Physician Assesment (Clinical assesment) Heart Score Heart Score: Heart Score Response (Comments) Value History Moderate Suspicious 1 EKG Repolarization Disturb 1 Age >65 2 Risk Factors >3 or Hx ASHD 2 Troponin Normal limit 0 Total 6 I personally scribed for CHUCK STEWART MD ([email or web address]) on 09/25/24 at 13:54. Electronically submitted by Natalio Baugh ([email or web address]). CHUCK STEWART MD September 25, 2024 13:54
[2024-09-25 14:06] LABS: Basophils # (auto) 0.1 10 ^3/uL (0-0.2); Basophils % (auto) 0.5 % (0.0-2.0); Eosinophils # (auto) 0.3 10 ^3/uL (0-0.8); Hematocrit 50.1 % (36.0-46.0); Hemoglobin 16.8 g/dL (12.2-16.2); Lymphocytes # (auto) 1.7 10 ^3/uL (0.4-5.4); Lymphocytes % (auto) 11.2 % (10.0-50.0); Mean Corpuscular Hemoglobin 29.7 pg (28.0-32.0); Mean Corpuscular Hgb Conc. 33.5 g/dL (32.0-36.0); Mean Corpuscular Volume 88.6 fL (80.0-100.0); Monocytes # (auto) 0.9 10 ^3/uL (0-1.3); Neutrophils # (auto) 11.9 10 ^3/uL (1.6-8.6); Neutrophils % (auto) 80.3 % (37.0-80.0); Platelet Count (auto) 316 10^3/uL (140-450); Red Blood Cells 5.65 10^6/uL (4.0-5.20); Red Cell Distribution Width 16.4 % (11.8-14.3); White Blood Cell 14.8 10^3/uL (4.4-10.8)
--- NOTE | 2024-09-25 14:19 | DVH ---
EXAM: XY CHEST PORTABLE Indication: sob Technique: Single frontal view of the chest was obtained Comparison: XY CHEST PORTABLE on DOS: 09/20/24, XY CHEST XRAY 1 VIEW on DOS: 09/04/24, XY CHEST PORTABL E on DOS: 07/29/24, XY CHEST PORTABLE on DOS: 07/24/24, XY CHEST PORTABLE on DOS: 07/12/24 FINDINGS: Lines and Tubes: Cardiac pacemaker projects over left chest wall. Lungs: No focal consolidation. Pleura: No effusion. No pneumothorax. Cardiomediastinal contours: Unremarkable Bones: No acute osseous abnormality. IMPRESSION: No acute cardiopulmonary disease.
[2024-09-25 15:46] LABS: Chloride 104 mmol/L (98-107); Potassium 4.6 mmol/L (3.5-5.1); Sodium 143 mmol/L (136-145)
[2024-09-25 15:47] LABS: Anion Gap 15 (5-15); Calcium 11.7 mg/dL (8.7-10.4); Carbon Dioxide 24 mmol/L (20-31)
[2024-09-25 15:52] LABS: BUN/Creatinine Ratio 20.4 (10.0-20.0)
[2024-09-25 15:55] LABS: Blood Urea Nitrogen 29 mg/dL (9-23); Glucose 125 mg/dL (74-106)
[2024-09-25 16:05] VITALS: PULSE 82; RESP 20; O2SAT 95
--- NOTE | 2024-09-25 16:57 | DVH ---
Exam: CT CT AB PEL WO CON-NO ORAL OR IV History: pain Comparison Study: None available at time of dictation. TECHNIQUE: Multidetector CT of the abdomen was performed from lung bases to pubic symphysis. Imaging was performed without IV contrast. Axial, coronal and sagittal multiplanar reformats were obtained fr om the axial data set by the technologist. Radiation Dose Information: CT Dose: CTDI volume is 10.48 mGy. Dose-length product is 549.15 mGy*cm FINDINGS: Evaluation of solid organs is limited due to lack of intravenous contrast use. Findings: Lung Bases: No acute or significant lung base finding. Normal heart size. No pleural or pericardial effusion. Liver: The liver is normal in size. No focal lesions. Gallbladder and Biliary Tree: Unremarkable Spleen: Unremarkable Pancreas: The pancreas is grossly normal in appearance. Adrenal Glands: Unremarkable Kidneys: Punctate nonobstructing calculus lower pole left kidney. 11-12 mm hyperdense cyst left kidn ey. Bladder: Grossly unremarkable for degree of distention. Bowel: The stomach is grossly normal in appearance. Small bowel and colon are normal in caliber and d istribution. The appendix is not visualized; however, no secondary findings of acute appendicitis id entified. Ascites: Absent Lymphadenopathy: No mesenteric, retroperitoneal or periportal lymphadenopathy. Abdominal Wall and Mesentery: Unremarkable. Vasculature: The visualized abdominal aorta is normal in size and caliber. Evaluation of abdominal a nd pelvic vessels is limited due to lack of intravenous contrast. Pelvic Organs: Unremarkable Musculoskeletal: No aggressive focal bony lesions, acute fractures or dislocation. Bony fusion of the facets bilaterally at L3-4 and 5. Bilateral laminectomy and L3, L4, L5. Soft tissues: Calcified injection granulomas over both hips. IMPRESSION: 1. Punctate nonobstructing calculus lower pole left kidney 2. 11-12 mm hypodense cortical cysts left kidney 3. Bilateral laminectomy at L3-4 and 5 with bony fusion of the articular facets bilaterally. Radiation optimization: All CT scans at this facility use at least one of these dose optimization lucy hniques: automated exposure control mA and/or kV adjustment per patient size (includes targeted exam s where dose is matched to clinical indication) or iterative reconstruction.
[2024-09-25] MEDS: ONDANSETRON HCL 4 MG/2 ML VIAL IV ONE ×2 (17:18→20:55)
[2024-09-25] MEDS: MORPHINE SULFATE 4 MG/ML SYR/VIAL IV ONE ×2 (17:19→20:55)
[2024-09-25 18:07] LABS: Urine Bacteria None Seen /hpf (None Seen)
[2024-09-25] MEDS: VANCOMYCIN 1GM/200ML PM 200 ML IV ONE (18:07)
[2024-09-25] MEDS: levoFLOXacin 500MG 100 ML IV ONE (18:07)
[2024-09-25] MEDS: SODIUM CHLORIDE 0.9% 1,650 ML IV ONE (18:07)
[2024-09-25 18:17] LABS: Urine Blood Negative /uL (Negative); Urine Clarity Clear (Clear); Urine Color Light-Yellow (Yellow); Urine Protein, UAD Negative (Negative); Urine Specific Gravity 1.008 (1.001-1.035); Urine Squamous Epithelial Cell FEW /hpf (<5); Urine Urobilinogen Normal (Negative); Urine WBC 1 /HPF (0-5)
--- NOTE | 2024-09-25 19:07 | ECG ---
[facility] Test Date: 2024-09-25 Test Time: 13:23:15 Pat Name: MONICA JAMES Department: ED Room: 0233T Gender: F Code Number Stamper: JOHNSON : 1945 Requested By: CHUCK STEWART Order Number: [id number] Reading MD: Adair Mijares Measurements Intervals [place] Rate: 75 P: 44 AR: 181 QRS: -84 QRSD: 124 T: 87 QT: 450 QTc: 503 Interpretive Statements Atrial-sensed ventricular-paced rhythm No further analysis attempted due to paced rhythm Electronically Signed On 10-01-2024 20:21:14 PDT by Adair Mijares Please click the below link to view image of tracing.
--- NOTE | 2024-09-25 19:07 | ECG ---
[facility] Test Date: 2024-09-25 Test Time: 15:49:26 Pat Name: MONICA JAMES Department: ED Room: 0233T Gender: F Mold Sheet Cleaner: JOHNSON : 1945 Requested By: CHUCK STEWART Order Number: [id number] Reading MD: Adair Mijares Measurements Intervals [place] Rate: 89 P: 31 FL: 166 QRS: -86 QRSD: 147 T: 91 QT: 429 QTc: 523 Interpretive Statements Ventricular-paced complexes No further analysis attempted due to paced rhythm Electronically Signed On 10-01-2024 20:21:41 PDT by Adair Mijares Please click the below link to view image of tracing.
[2024-09-25 19:19] VITALS: PULSE 66; RESP 10; O2SAT 98
[2024-09-25] MEDS ORDERED: DOCUSATE SOD 100 MG CAP PO PRN (21:00)
[2024-09-25] MEDS ORDERED: VANCOMYCIN PER PHARMACY 0 MG IV SCH (21:00)
[2024-09-25] MEDS ORDERED: HYDROcodone-ACET 5/325MG TAB PO PRN (21:00)
[2024-09-25 21:16] VITALS: BP 100/53; PULSE 66; RESP 16; TEMP 97.9; O2SAT 98
[2024-09-25] MEDS: METOPROLOL TARTRATE 25 MG TAB PO SCH (22:00)
[2024-09-25] MEDS: SODIUM CHLOR 0.9% PF (SALINE LOCK) 10ML VIAL/SYR IV SCH (22:20)
[2024-09-25] MEDS: ATORVASTATIN 20 MG TAB PO SCH (22:20)
--- NOTE | 2024-09-25 22:23 | DVHHP2 ---
History of Present Illness Reason for Visit: Acute chest pain History of Present Illness The patient is a 79-year-old female with multiple past medical history including COPD, depression, GERD, CHF, and anxiety who presented to [facility] ED with complaint of acute chest pain. Patient reports symptoms progressively get worse with left-sided chest pain which radiates down to the left lower rib, rating 7/10 numeric scale, nausea, getting worse that prompted this visit. Patient was seen and evaluated in the ED, laboratory data shows WBC 14.8, hemoglobin 16.8, hematocrit 50.1, platelets 316, sodium 143, potassium 4.6, BUN 29, creatinine 1.42, glucose 125, calcium 11.7, troponin 28. Patient was given IV morphine sulfate 4 mg x1, please see medication orders section in the computer. On my assessment, patient denied chest pain at this moment, no headache, no dizziness, no diaphoresis, no shortness of breaths, no nausea, no vomiting, no fever, no chills. Patient was admitted for further evaluation and medical management. Past Medical History Anemia, Anxiety, Asthma, CAD, CHF, CKF (Stage 3), COPD, CVA, Depression, GERD, Gout, High Lipids, HTN, Kidney Stones, OH (recently being 2 1/2 weeks of a total of 8 OH's), UTI'S, Ovarian Cysts Home O2 of 2L Past Surgical History Appendectomy, CABG, Hysterectomy, Pacemaker, PTCA (total of 8), 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, Back surgery Family History Reviewed, noncontributory to the management of this case. Past Social History The patient lives at home, denies smoking, alcohol or illicit drugs abuse. Review of Systems Constitutional: No: Fever, Chills, Sweats, Weakness, Malaise, Other Eyes: No: Pain, Vision change, Conjunctivae inflammation, Eyelid inflammation, Other, Redness ENT: No: Ear pain, Ear discharge, Nose pain, Nose discharge, Nose congestion, Mouth pain, Mouth swelling, Throat pain, Throat swelling, Other Respiratory: No: Cough, Dry, Shortness of breath, SOB with excertion, Wheezing, Hemoptysis, Pleuritic Pain, Sputum, Wheezing, Other Cardiovascular: Chest Pain; No: Palpitations, Orthopnea, Paroxysmal Noc. 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 Hydrocodone (Verified Allergy, Unknown, rash, 05/18/23) tylenol is okay per patient Medications Current Medications Medications Dose Ordered Sig/Asha Route Start Time Stop Time Status Last Admin Dose Admin Aspirin 81 mg DAILY PO 09/26/24 10:00 Atorvastatin Calcium 20 mg HS PO 09/25/24 22:00 09/25/24 22:20 20 MG Metoprolol Tartrate 12.5 mg BID PO 09/25/24 22:00 Clopidogrel Bisulfate 75 mg DAILY PO 09/26/24 10:00 Vancomycin HCl 0 ml @ 0 mls/hr UD IV 09/25/24 21:00 UNV Albuterol 2.5 mg Q4HPRN PRN NEB 09/25/24 21:00 Ipratropium [place] 0.5 mg Q4HPRN PRN NEB 09/25/24 21:00 Sodium Chloride 10 ml Q8HR IV 09/25/24 22:00 09/25/24 22:20 10 ML Acetaminophen/ Hydrocodone Bitart 1 tab Q4HP PRN PO 09/25/24 21:00 UNV Ondansetron HCl 4 mg Q4HP PRN IV 09/25/24 21:00 Docusate Sodium 100 mg BIDPRN PRN PO 09/25/24 21:00 Acetaminophen 650 mg Q6HP PRN PO 09/25/24 21:00 Exam Vital Signs Vital Signs Date Time Temp Pulse Resp B/P (MAP) Pulse Ox O2 Delivery O2 Flow Rate FiO2 09/25/24 22:00 75 101/60 09/25/24 21:25 17 09/25/24 21:16 97.9 98 3.0 32 97.9 09/25/24 19:19 Nasal Cannula* General Appearance: Alert, Oriented X3, Cooperative, No acute distress HEENT: Atraumatic, PERRLA, EOMI, Mucous membr. moist/pink Respiratory: Clear to auscultation, Normal air movement Cardiovascular: Regular rate, Normal S1, Normal S2, No murmurs Abdominal: Normal bowel sounds, Soft, No tenderness, No hepatospenomegaly, No masses Extremities: No clubbing, No cyanosis, No edema, Normal pulses, No tenderness/swelling Skin: No rashes, No breakdown, No significant lesion Neuro: Normal speech, Normal tone, Sensation intact, Cranial nerves 3-12 NL, Reflexes 2+, Other (Generalized weakness) Psych/Mental Status: Mental status NL, Mood NL Labs/Xrays Labs Test 09/25/24 18:23 09/25/24 18:05 09/25/24 15:39 09/25/24 15:08 Range/Units Lactic Acid Level 2.0 0.4-2.0 mmol/L Troponin I High Sensitivity 28 </=34 ng/L Urine Color Light-yellow Yellow Urine Clarity Clear Clear Urine pH 6.0 5.0-9.0 Urine Specific [place] 1.008 1.001-1.035 Urine Protein Negative Negative Urine Ketones Negative Negative Urine Blood Negative Negative /uL Urine Nitrite Negative Negative Urine Bilirubin Negative Negative Urine Urobilinogen Normal Negative mg/dL Urine Leukocyte Esterase Negative Negative /uL Urine RBC 1 0 - 4 /hpf Urine Microscopic WBC 1 0-5 /HPF Urine Squamous Epithelial Cells Few <5 /hpf Urine Bacteria None seen None Seen /hpf Urine Glucose Normal Normal mg/dL POC Glucose 148 H 70-106 mg/dl Sodium Level 143 # 136-145 mmol/L Potassium Level 4.6 3.5-5.1 mmol/L Chloride Level 104 98-107 mmol/L Carbon Dioxide Level 24 20-31 mmol/L Anion Gap 15 5-15 Blood Urea Nitrogen 29 H 9-23 mg/dL Creatinine 1.42 #H 0.550-1.02 mg/dL Glomerular Filtration Rate Calc 37 >90 mL/min BUN/Creatinine Ratio 20.4 H 10.0-20.0 Serum Glucose 125 H 74-106 mg/dL Calcium Level 11.7 H 8.7-10.4 mg/dL Test 09/25/24 13:55 Range/Units White Blood Count 14.8 #H 4.4-10.8 10^3/uL Red Blood Count 5.65 H 4.0-5.20 10^6/uL Hemoglobin 16.8 #H 12.2-16.2 g/dL Hematocrit 50.1 #H 36.0-46.0 % Mean Corpuscular Volume 88.6 80.0-100.0 fL Mean Corpuscular Hemoglobin 29.7 28.0-32.0 pg Mean Corpuscular Hemoglobin Concent 33.5 32.0-36.0 g/dL Red Cell Distribution Width 16.4 H 11.8-14.3 % Platelet Count 316 140-450 10^3/uL Mean Platelet Volume 8.2 6.9-10.8 fL Neutrophils (%) (Auto) 80.3 H 37.0-80.0 % Lymphocytes (%) (Auto) 11.2 10.0-50.0 % Monocytes (%) (Auto) 6.0 0.0-12.0 % Eosinophils (%) (Auto) 2.0 0.0-7.0 % Basophils (%) (Auto) 0.5 0.0-2.0 % Neutrophils # (Auto) 11.9 H 1.6-8.6 10 ^3/uL Lymphocytes # (Auto) 1.7 0.4-5.4 10 ^3/uL Monocytes # (Auto) 0.9 0-1.3 10 ^3/uL Eosinophils # (Auto) 0.3 0-0.8 10 ^3/uL Basophils # (Auto) 0.1 0-0.2 10 ^3/uL Nucleated Red Blood Cells 0.0 % PATIENT: MONICA JAMES ACCT: [id number] UNIT: [id number] : 1945 LOC: ER ROOM / BED: / AGE / SEX: 79 / F ADM STATUS: REG ER SERVICE [id number] ORDERING PHYSICIAN: CHUCK STEWART MD PROCEDURE(s): ABPL - CT AB PEL WO CON-NO ORAL OR IV REASON: pain ORDER NUMBER(s): [id number], ACCESSION NUMBER(s): [id number] Exam: CT CT AB PEL WO CON-NO ORAL OR IV History: pain Comparison Study: None available at time of dictation. TECHNIQUE: Multidetector CT of the abdomen was performed from lung bases to pubic symphysis. Imaging was performed without IV contrast. Axial, coronal and sagittal multiplanar reformats were obtained from the axial data set by the technologist. Radiation Dose Information: CT Dose: CTDI volume is 10.48 mGy. Dose-length product is 549.15 mGy*cm FINDINGS: Evaluation of solid organs is limited due to lack of intravenous contrast use. Findings: Lung Bases: No acute or significant lung base finding. Normal heart size. No pleural or pericardial effusion. Liver: The liver is normal in size. No focal lesions. Gallbladder and Biliary Tree: Unremarkable Spleen: Unremarkable Pancreas: The pancreas is grossly normal in appearance. Adrenal Glands: Unremarkable Kidneys: Punctate nonobstructing calculus lower pole left kidney. 11-12 mm hyperdense cyst left kidney. Bladder: Grossly unremarkable for degree of distention. Bowel: The stomach is grossly normal in appearance. Small bowel and colon are normal in caliber and distribution. The appendix is not visualized; however, no secondary findings of acute appendicitis identified. Ascites: Absent Lymphadenopathy: No mesenteric, retroperitoneal or periportal lymphadenopathy. Abdominal Wall and Mesentery: Unremarkable. Vasculature: The visualized abdominal aorta is normal in size and caliber. Evaluation of abdominal and pelvic vessels is limited due to lack of intravenous contrast. Pelvic Organs: Unremarkable Musculoskeletal: No aggressive focal bony lesions, acute fractures or dislocation. Bony fusion of the facets bilaterally at L3-4 and 5. Bilateral laminectomy and L3, L4, L5. Soft tissues: Calcified injection granulomas over both hips. IMPRESSION: 1. Punctate nonobstructing calculus lower pole left kidney 2. 11-12 mm hypodense cortical cysts left kidney 3. Bilateral laminectomy at L3-4 and 5 with bony fusion of the articular facets bilaterally. ORDERING PHYSICIAN: CHUCK STEWART MD PROCEDURE(s): CXRP - CHEST PORTABLE REASON: sob ORDER NUMBER(s): [id number], ACCESSION NUMBER(s): [id number] EXAM: XY CHEST PORTABLE Indication: sob Technique: Single frontal view of the chest was obtained Comparison: XY CHEST PORTABLE on DOS: 09/20/24, XY CHEST XRAY 1 VIEW on DOS: 09/04/24, XY CHEST PORTABLE on DOS: 07/29/24, XY CHEST PORTABLE on DOS: 07/24/24, XY CHEST PORTABLE on DOS: 07/12/24 FINDINGS: Lines and Tubes: Cardiac pacemaker projects over left chest wall. Lungs: No focal consolidation. Pleura: No effusion. No pneumothorax. Cardiomediastinal contours: Unremarkable Bones: No acute osseous abnormality. IMPRESSION: No acute cardiopulmonary disease. Assessment/Plan Assessment/Plan Acute chest pain Generalized weakness Acute renal injury Hypotension, unspecified Acute coronary syndrome Leukocytosis, unspecified Plan 1. Admit to telemetry unit 2. Breathing treatment 3. Pain control management 4. IV antibiotic management 5. Management of fluids and electrolytes 6. Consultation for hospitalist 7. Diagnostic test chest x-ray 8. DVT prophylaxis-on aspirin 9. Repeat labs CBC, CMP in a.m. 10. Home medication reviewed and reconciled 11. Continue with current medical management 12. Treatment plan discussed with patient and RN. Patient verbalized under standing. Plan discussed with: Patient, Other (RN) My Orders Orders - LIBORIO DECKER DNP Procedure Category Date Status Time Aspirin Tablet PHA 09/26/24 In Process 10:00 Atorvastatin (Lipitor) PHA 09/25/24 In Process 22:00 Metoprolol Tartrate PHA 09/25/24 In Process Tablet (Lopressor Ta 22:00 Clopidogrel Bisulfate PHA 09/26/24 In Process (Plavix) 10:00 Vancomycin Per PHA 09/25/24 Pending Pharmacy 21:00 Albuterol Medneb PHA 09/25/24 In Process (Ventolin Medneb) 21:00 Ipratropium Medneb PHA 09/25/24 In Process (Atrovent Medneb) 21:00 Allergies AME 09/25/24 In Process 21:00 Code Status CODE 09/25/24 Transmitted 21:00 Sodium Chloride Lock PHA 09/25/24 In Process (Saline Lock Ns) 22:00 Oxygen Per Hour RT 09/25/24 Transmitted 21:00 Hydrocodone-Acet PHA 09/25/24 Pending 5/325mg Tab ([place] 21:00 Ondansetron Hcl PHA 09/25/24 In Process (Zofran) 21:00 Docusate Sodium PHA 09/25/24 In Process Capsule (Colace 21:00 Fall Risk Precautions AME 09/25/[address] 21:00 Complete Blood Count LAB 09/26/24 Verified 04:00 Comprehensive LAB 09/26/24 Verified Metabolic Panel 04:00 Cardiac DIET 09/26/24 Transmitted Diet-2gna,Lofat,Lochol Breakfast Condition: Serious AME 09/25/24 In Process 21:00 Acetaminophen Tablet PHA 09/25/24 In Process (Tylenol Tablet) 21:00 Bedrest With Bathroom AME 09/25/24 In Process Privileg 21:00 Sequential [facility] 09/25/24 In Process Compression Device Admit ADMIT 09/25/24 Transmitted 22:22 Nitroglycerin [facility] 09/25/24 Verified Sublingual (Ntrostat 22:30 Morphine Sulfate PHA 09/25/24 Verified Injection 22:30 Notify Md Of Changes [facility] 09/25/24 Verified From Base 22:22 Code Inspector For [facility] 09/25/24 Verified 24 Hours 22:22 Emergency Dysrhythmia [facility] 09/25/24 Verified Protocol 22:22 Rhythm Strips Once [facility] 09/25/24 Verified Every Shift 22:22 Oxygen By Nasal 09/25/24 Verified Cannula 22:22 Problem List: (1) Acute chest pain (2) Generalized weakness (3) Acute renal injury (4) Acute coronary syndrome (5) Hypotension, unspecified (6) Leukocytosis, unspecified Date of Service: September 25, 2024 Billing Provider: LIBORIO DECKER DNP Common Visit Codes: [id number] INP/OBS CARE (HIGH) LIBORIO DECKER DNP September 25, 2024 22:23
[2024-09-25] MEDS ORDERED: NITROGLYCERIN 0.4 MG SL TAB SL PRN (22:30)
[2024-09-26] VITALS (11 sets, daily range): BP systolic 112–137; BP diastolic 53–64; PULSE 68–104; RESP 17–20; TEMP 98–99.6; O2SAT 92–97
[2024-09-26] MEDS: ACETAMINOPHEN 325 MG TAB PO PRN (00:56)
[2024-09-26] MEDS: MORPHINE SULFATE INJ 2 MG/ml SYRG IV PRN ×2 (04:34→10:16)
[2024-09-26 05:02] LABS: Basophils # (auto) 0.1 10 ^3/uL (0-0.2); Basophils % (auto) 0.4 % (0.0-2.0); Eosinophils # (auto) 0.1 10 ^3/uL (0-0.8); Eosinophils % (auto) 0.5 % (0.0-7.0); Hemoglobin 13.1 g/dL (12.2-16.2); Lymphocytes # (auto) 1.6 10 ^3/uL (0.4-5.4); Mean Corpuscular Hemoglobin 29.3 pg (28.0-32.0); Mean Corpuscular Hgb Conc. 33.7 g/dL (32.0-36.0); Mean Corpuscular Volume 86.8 fL (80.0-100.0); Monocytes # (auto) 1.4 10 ^3/uL (0-1.3); Monocytes % (auto) 7.6 % (0.0-12.0); Neutrophils # (auto) 14.7 10 ^3/uL (1.6-8.6); Neutrophils % (auto) 82.5 % (37.0-80.0); Nucleated Red Blood Cells % 0.2 %; Platelet Count (auto) 262 10^3/uL (140-450); Red Blood Cells 4.49 10^6/uL (4.0-5.20); White Blood Cell 17.9 10^3/uL (4.4-10.8)
[2024-09-26 05:23] LABS: Alanine Aminotransferase 12 U/L (7-40); Albumin 3.9 g/dL (3.2-4.8); Alkaline Phosphatase 95 U/L (46-116); Anion Gap 10 (5-15); Aspartate Aminotransferase 18 U/L (13-40); BUN/Creatinine Ratio 24.3 (10.0-20.0); Bilirubin, Total 0.7 mg/dL (0.2-1.0); Calcium 9.3 mg/dL (8.7-10.4); Carbon Dioxide 23 mmol/L (20-31); Chloride 106 mmol/L (98-107); Potassium 3.7 mmol/L (3.5-5.1); Sodium 139 mmol/L (136-145); Total Protein 5.9 g/dL (5.7-8.2)
[2024-09-26 05:27] LABS: Blood Urea Nitrogen 36 mg/dL (9-23); Glucose 106 mg/dL (74-106)
--- NOTE | 2024-09-26 08:04 | ECG ---
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
[2024-09-26] MEDS: CLOPIDOGREL BISULFATE 75 MG TAB PO SCH (10:14)
[2024-09-26] MEDS: ASPirin 81 mg TAB PO SCH (10:14)
[2024-09-26] MEDS: VANCOMYCIN 750MG KIT 100 ML IV ONE (13:10)
--- NOTE | 2024-09-26 14:23 | DVHPN2 ---
Reviewed: Care Plan, H&P, Labs, Medications, Previous Orders, Radiology Changes from previous H/P or p: No Changes Eyes: No Pain, No Vision change, No Conjunctivae inflammation, No Eyelid inflammation, No Other, No Redness ENT: No Ear pain, No Ear discharge, No Nose pain, No Nose discharge, No Nose congestion, No Mouth pain, No Mouth swelling, No Throat pain, No Throat swelling, No Other Cardiovascular: Chest Pain; No Palpitations, No Orthopnea, No Paroxysmal Noc. Dyspnea, No Edema, No Lt Headedness, No Other Respiratory: No Cough, No Dry, No Shortness of breath, No SOB with excertion, No Wheezing, No Hemoptysis, No Pleuritic Pain, No Sputum, No Other Gastrointestinal: Nausea; No Vomiting, No Abdominal Pain, No Diarrhea, No Constipation, No Melena, No Hematochezia, No Other Genitourinary: No Dysuria, No Frequency, No Incontinence, No Hematuria, No Retention, No Other Musculoskeletal: No other, No neck pain, No shoulder pain, No arm pain, No back pain, No hand pain, No leg pain, No foot pain Skin: No Rash, No Lesions, No Jaundice, No Bruising, No Other Objective Vitals Vital Signs Date Time Temp Pulse Resp B/P (MAP) Pulse Ox O2 Delivery O2 Flow Rate FiO2 09/26/24 11:15 79 125/67 09/26/24 11:06 18 09/26/24 09:15 94 Nasal Cannula 2.0 09/26/24 09:15 28 09/26/24 09:00 98.0 98.0 Intake/Output Intake and Output 09/26/24 07:00 Intake Total 2200 ml Output Total 300 ml Balance 1900 ml Intake Oral 250 ml IV Total 1950 ml Output Urine Total 300 ml Medications Current Medications Medications Dose Ordered Sig/Asha Route Start Time Stop Time Status Last Admin Dose Admin Aspirin 81 mg DAILY PO 09/26/24 10:00 09/26/24 10:14 81 MG Atorvastatin Calcium 20 mg HS PO 09/25/24 22:00 09/25/24 22:20 20 MG Metoprolol Tartrate 12.5 mg BID PO 09/25/24 22:00 09/26/24 10:15 12.5 MG Clopidogrel Bisulfate 75 mg DAILY PO 09/26/24 10:00 09/26/24 10:14 75 MG Vancomycin HCl 0 ml @ 0 mls/hr UD IV 09/25/24 21:00 Albuterol 2.5 mg Q4HPRN PRN NEB 09/25/24 21:00 Ipratropium [place] 0.5 mg Q4HPRN PRN NEB 09/25/24 21:00 Sodium Chloride 10 ml Q8HR IV 09/25/24 22:00 09/26/24 05:02 10 ML Ondansetron HCl 4 mg Q4HP PRN IV 09/25/24 21:00 Docusate Sodium 100 mg BIDPRN PRN PO 09/25/24 21:00 Acetaminophen 650 mg Q6HP PRN PO 09/25/24 21:00 09/26/24 00:56 650 MG Nitroglycerin 0.4 mg Q5MINP PRN SL 09/25/24 22:30 Morphine Sulfate 2 mg Q30M PRN IV 09/25/24 22:30 09/26/24 04:34 2 MG Morphine Sulfate 2 mg Q4HPRN PRN IV 09/25/24 23:30 09/26/24 10:16 2 MG Laboratory Results Laboratory Tests 09/26/24 04:36 Chemistry Test 09/25/24 15:08 09/26/24 04:36 Calcium Level 11.7 mg/dL (8.7-10.4) H 9.3 mg/dL (8.7-10.4) Albumin 3.9 g/dL (3.2-4.8) Total Protein 5.9 g/dL (5.7-8.2) LFT Test 09/26/24 04:36 Alanine Aminotransferase (ALT) 12 U/L (7-40) Alkaline Phosphatase 95 U/L (46-116) Aspartate Amino Transferase (AST) 18 U/L (13-40) Total Bilirubin 0.7 mg/dL (0.2-1.0) Urinalysis Test 09/25/24 18:05 Urine Color Light-yellow (Yellow) Urine Clarity Clear (Clear) Urine pH 6.0 (5.0-9.0) Urine Specific [place] 1.008 (1.001-1.035) Urine Protein Negative (Negative) Urine Ketones Negative (Negative) Urine Blood Negative /uL (Negative) Urine Nitrite Negative (Negative) Urine Bilirubin Negative (Negative) Urine Urobilinogen Normal mg/dL (Negative) Urine Leukocyte Esterase Negative /uL (Negative) Urine RBC 1 /hpf (0 - 4) Urine Microscopic WBC 1 /HPF (0-5) Urine Squamous Epithelial Cells Few /hpf (<5) Urine Bacteria None seen /hpf (None Seen) Urine Glucose Normal mg/dL (Normal) Microbiology Microbiology Date/Time Source Procedure Growth Status 09/26/24 04:45 Nose MRSA Screen - Final Complete Labs and/or images reviewed: Labs reviewed by me, Image(s) reviewed by me Assessment/Plan Assessment/Plan Sepsis unknown etiology: Blood cultures urine cultures vancomycin Acute chest pain troponin negative, cardiology consult for Dr. Felipe Generalized weakness Acute renal injury Hypotension, unspecified Acute coronary syndrome Leukocytosis, unspecified Chest x-ray negative CT head neg Continue home medications Time spent 70 minutes Advanced care planning time 20 minutes Patient is full code [facility] Plan discussed with: Patient Date of Service: September 26, 2024 Billing Provider: JANE VEGA MD Common Visit Codes: [id number] CARE 30-74 MIN JANE VEGA MD September 26, 2024 14:23
[2024-09-26] MEDS: ONDANSETRON HCL 4 MG/2 ML VIAL IV PRN (14:57)
[2024-09-26] MEDS: IPRATROPIUM BROM 0.5 MG/2.5ML INH SOL NEB PRN (21:06)
[2024-09-26] MEDS: ALBUTEROL SULF 2.5 MG/0.5ML(0.5%) NEB SOLN NEB PRN (21:06)
[2024-09-27] VITALS (11 sets, daily range): BP systolic 108–125; BP diastolic 42–71; PULSE 69–94; RESP 17–19; TEMP 98–98.8; O2SAT 92–99
[2024-09-27] MEDS: VANCOMYCIN 750MG KIT 100 ML IV SCH (06:13)
--- NOTE | 2024-09-27 10:04 | DVHPN2 ---
Reviewed: Care Plan, H&P, Labs, Medications, Previous Orders, Radiology Changes from previous H/P or p: No Changes Eyes: No Pain, No Vision change, No Conjunctivae inflammation, No Eyelid inflammation, No Other, No Redness ENT: No Ear pain, No Ear discharge, No Nose pain, No Nose discharge, No Nose congestion, No Mouth pain, No Mouth swelling, No Throat pain, No Throat swelling, No Other Cardiovascular: Chest Pain; No Palpitations, No Orthopnea, No Paroxysmal Noc. Dyspnea, No Edema, No Lt Headedness, No Other Respiratory: No Cough, No Dry, No Shortness of breath, No SOB with excertion, No Wheezing, No Hemoptysis, No Pleuritic Pain, No Sputum, No Other Gastrointestinal: Nausea; No Vomiting, No Abdominal Pain, No Diarrhea, No Constipation, No Melena, No Hematochezia, No Other Genitourinary: No Dysuria, No Frequency, No Incontinence, No Hematuria, No Retention, No Other Musculoskeletal: No other, No neck pain, No shoulder pain, No arm pain, No back pain, No hand pain, No leg pain, No foot pain Skin: No Rash, No Lesions, No Jaundice, No Bruising, No Other Objective Vitals Vital Signs Date Time Temp Pulse Resp B/P (MAP) Pulse Ox O2 Delivery O2 Flow Rate FiO2 09/27/24 09:07 78 120/65 09/27/24 08:00 18 95 Nasal Cannula* 3 32 09/27/24 05:00 98.0 98.0 Intake/Output Intake and Output 09/27/24 07:00 Intake Total 1100 ml Output Total 700 ml Balance 400 ml Intake Oral 1000 ml IV Total 100 ml Output Urine Total 700 ml # Bowel Movements 1 Medications Current Medications Medications Dose Ordered Sig/Asha Route Start Time Stop Time Status Last Admin Dose Admin Aspirin 81 mg DAILY PO 09/26/24 10:00 09/27/24 09:07 81 MG Atorvastatin Calcium 20 mg HS PO 09/25/24 22:00 09/26/24 21:13 20 MG Metoprolol Tartrate 12.5 mg BID PO 09/25/24 22:00 09/27/24 09:07 12.5 MG Clopidogrel Bisulfate 75 mg DAILY PO 09/26/24 10:00 09/27/24 09:07 75 MG Vancomycin HCl 0 ml @ 0 mls/hr UD IV 09/25/24 21:00 Albuterol 2.5 mg Q4HPRN PRN NEB 09/25/24 21:00 09/26/24 21:06 2.5 MG Ipratropium [place] 0.5 mg Q4HPRN PRN NEB 09/25/24 21:00 09/26/24 21:06 0.5 MG Sodium Chloride 10 ml Q8HR IV 09/25/24 22:00 09/27/24 06:13 10 ML Ondansetron HCl 4 mg Q4HP PRN IV 09/25/24 21:00 09/26/24 14:57 4 MG Docusate Sodium 100 mg BIDPRN PRN PO 09/25/24 21:00 Acetaminophen 650 mg Q6HP PRN PO 09/25/24 21:00 09/26/24 00:56 650 MG Nitroglycerin 0.4 mg Q5MINP PRN SL 09/25/24 22:30 Morphine Sulfate 2 mg Q30M PRN IV 09/25/24 22:30 09/26/24 04:34 2 MG Morphine Sulfate 2 mg Q4HPRN PRN IV 09/25/24 23:30 09/27/24 05:04 2 MG Vancomycin HCl 100 ml @ 100 mls/hr Q24H IV 09/27/24 06:00 09/27/24 06:13 100 MLS/HR Laboratory Results Laboratory Tests 09/26/24 04:36 09/27/24 04:40 Urinalysis Test 09/25/24 18:05 Urine Color Light-yellow (Yellow) Urine Clarity Clear (Clear) Urine pH 6.0 (5.0-9.0) Urine Specific [place] 1.008 (1.001-1.035) Urine Protein Negative (Negative) Urine Ketones Negative (Negative) Urine Blood Negative /uL (Negative) Urine Nitrite Negative (Negative) Urine Bilirubin Negative (Negative) Urine Urobilinogen Normal mg/dL (Negative) Urine Leukocyte Esterase Negative /uL (Negative) Urine RBC 1 /hpf (0 - 4) Urine Microscopic WBC 1 /HPF (0-5) Urine Squamous Epithelial Cells Few /hpf (<5) Urine Bacteria None seen /hpf (None Seen) Urine Glucose Normal mg/dL (Normal) Microbiology Microbiology Date/Time Source Procedure Growth Status 09/26/24 04:45 Nose MRSA Screen - Final Complete 09/25/24 18:23 Blood Blood Culture - Preliminary NO GROWTH AFTER 24 HOURS OF INCUBATION. Resulted Labs and/or images reviewed: Labs reviewed by me, Image(s) reviewed by me Assessment/Plan Assessment/Plan Sepsis unknown etiology: Blood cultures negative, urinalysis negative, continue vancomycin Acute chest pain troponin negative, cardiology consult for Dr. Felipe Generalized weakness Acute renal injury Hypertension Acute coronary syndrome Leukocytosis, unspecified Chest x-ray negative CT head neg Continue home medications Time spent 45 minutes Patient is full code [facility] Plan discussed with: Patient Date of Service: September 27, 2024 Billing Provider: JANE VEGA MD Common Visit Codes: [id number] INP/OBS CARE(HIGH) JANE VEGA MD September 27, 2024 10:04
[2024-09-28] VITALS (11 sets, daily range): BP systolic 107–128; BP diastolic 39–61; PULSE 68–76; RESP 15–19; TEMP 98–98.7; O2SAT 91–99
--- NOTE | 2024-09-28 08:07 | DVHINCON2 ---
Date of service: September 28, [address] Vivien Cheek Reason for Consultation Chest Pain Family History: Arthritis Cardiovascular disease G8 MOTHER, Onset:Unknown Cerebrovascular accident (CVA) G8 FATHER Coronary artery disease G8 MOTHER, Onset:Unknown FH: diabetes mellitus G8 MOTHER, Onset:Unknown FH: heart disease G8 MOTHER, Onset:Unknown FH: hypertension G8 MOTHER, Onset:Unknown FH: lupus 19 CHILD FH: myocardial infarction G8 MOTHER, Onset:Unknown Family history: Cardiovascular disease G8 MOTHER, Onset:Unknown G8 FATHER, Onset:Unknown Glaucoma G8 MOTHER, Onset:Unknown Allergies: Coded Allergies: Ceftriaxone (Verified Allergy, Intermediate, generalized rash, 11/08/22) [employer]JIA Hydrocodone (Verified Allergy, Unknown, rash, 05/18/23) tylenol is okay per patient Home Meds Active Scripts Phenazopyridine HCl (Eq Urinary Pain Relief Ma) 99.5 Mg Tab, 99.5 MG PO TID for 10 Days, #30 TAB Prov:PHILL LEAL RESDIENT 09/23/24 Cephalexin Monohydrate (Cephalexin) 500 Mg Cap, 1 CAP PO BID for 4 Days, #10 CAP Prov:PHILL LEAL RESDIENT 09/23/24 Metoprolol Succinate (Metoprolol Succinate Er) 25 Mg Tab, 1 TAB PO DAILY for 30 Days, #30 TAB 5 Refills Prov:AXEL CARABALLO RESIDENT 09/06/24 Spironolactone (Aldactone) 25 Mg Tab, 25 MG PO DAILY for 30 Days, #30 TAB Prov:BHARAT MICHELLE RESIDENT 07/22/24 Oxybutynin Chloride (Oxybutynin Chloride) 5 Mg Tab, 5 MG PO Q8HR for 30 Days, #90 TAB Prov:BHARAT MICHELLE RESIDENT 07/22/24 Atorvastatin Calcium (ATORVASTATIN CALCIUM) 20 Mg Tab, 40 MG PO HS for 30 Days, #60 TAB Prov:BHARAT MICHELLE [facility] 07/22/24 Acetaminophen (Acetaminophen) 325 Mg Tab, 650 MG PO TID for 10 Days, #60 TAB Prov:BHARAT MICHELLE RESIDENT 07/22/24 Duloxetine Hydrochloride (Duloxetine Hydrochloride) 30 Mg Cap, 30 MG PO DAILY for 30 Days, #30 CAP Prov:WINSOME GOMEZ MD 04/29/24 Clopidogrel Bisulfate (CLOPIDOGREL) 75 Mg Tab, 75 MG PO DAILY for 30 Days, #30 TAB 5 Refills Prov:YENNY FRAIRE MD 11/26/23 Ranolazine (Ranolazine ER) 500 Mg Tab, 500 MG PO BID for 30 Days, #60 TAB 2 Refills Prov:MAGAN RUSS RESIDENT 09/16/23 Reported Medications Polyethylene Glycol 3350 (Miralax) 17 Gm Pow, 17 GM PO DAILY PRN for FOR CONSTIPATION for 30 Days, #30 01/28/24 Ipratropium-Albuterol (Ipratropium [place]/Albut) 1 Yuli Yuli, 1 VIAL NEB Q6HPRN PRN for SHORTNESS OF BREATH for 13 Days, #180 09/05/23 Fluticasone-Salmeterol (Fluticasone Propionate/SA 250-50 Mcg/Dose) 1 Aer Aer, 1 PUFF INH BID for 30 Days, #60 09/05/23 Albuterol Sulfate (Albuterol Sulfate Hfa) 108 Mcg/Act Aer, 2 PUFF INH Q4HPRN PRN for dyspnea for 17 Days, #18 09/05/23 Cholecalciferol (VITAMIN D3) 2,000 Unit Tab, 1 TAB PO BID for 30 Days, #60 08/28/23 Multiple Vitamin (Tab-A-Radha) Tab, 1 TAB PO DAILY for 30 Days, #30 08/28/23 Aspirin (Aspir-Low) 81 Mg Tab, 1 TAB PO DAILY for 30 Days, #30 08/28/23 Ascorbic Acid (VITAMIN C TABLET) 500 Mg Tb, 1 TAB PO BID for 30 Days, #60 05/18/23 Pantoprazole Sodium Sesquihydr (Pantoprazole Sodium) 40 Mg Tab, 1 TAB PO DAILY 05/18/23 Fluoxetine HCl (Pmdd) (Fluoxetine HCl) 20 Mg Tab, 20 MG PO DAILY, TAB 05/30/20 Vital Signs Vital Signs Date Time Temp Pulse Resp B/P (MAP) Pulse Ox O2 Delivery O2 Flow Rate FiO2 09/28/24 05:23 71 18 107/61 09/28/24 05:00 98.0 95 98.0 09/27/24 19:30 Nasal Cannula* 2 28 Physical Exam Lying comfortably flat in bed, no JVD, pink and wet mucosa, no carotid bruit, no goiter, lungs: Not using accessory muscles of breathing, lungs reveal scattered rhonchi, cardiac: Regular regular, no thrill/gallop, 2+murmur in apex, abdomen: Soft, no hepatomegaly, some suprapubic and upper epigastric tenderness is positive, no rebound tenderness, extremities: No edema, dorsalis pedis is 2+ bilateral. Right femoral/groin area with no hematoma. Labs/Diagnostic Data Labs Test 09/28/24 05:16 09/26/24 04:36 09/25/24 18:23 09/25/24 18:05 Range/Units Creatinine 0.98 0.550-1.02 mg/dL Glomerular Filtration Rate Calc 58 >90 mL/min Vancomycin Level Trough 8.7 5-10 ug/mL White Blood Count 17.9 H 4.4-10.8 10^3/uL Red Blood Count 4.49 4.0-5.20 10^6/uL Hemoglobin 13.1 # 12.2-16.2 g/dL Hematocrit 39.0 # 36.0-46.0 % Mean Corpuscular Volume 86.8 80.0-100.0 fL Mean Corpuscular Hemoglobin 29.3 28.0-32.0 pg Mean Corpuscular Hemoglobin Concent 33.7 32.0-36.0 g/dL Red Cell Distribution Width 16.0 H 11.8-14.3 % Platelet Count 262 140-450 10^3/uL Mean Platelet Volume 8.3 6.9-10.8 fL Neutrophils (%) (Auto) 82.5 H 37.0-80.0 % Lymphocytes (%) (Auto) 9.0 L 10.0-50.0 % Monocytes (%) (Auto) 7.6 0.0-12.0 % Eosinophils (%) (Auto) 0.5 0.0-7.0 % Basophils (%) (Auto) 0.4 0.0-2.0 % Neutrophils # (Auto) 14.7 H 1.6-8.6 10 ^3/uL Lymphocytes # (Auto) 1.6 0.4-5.4 10 ^3/uL Monocytes # (Auto) 1.4 H 0-1.3 10 ^3/uL Eosinophils # (Auto) 0.1 0-0.8 10 ^3/uL Basophils # (Auto) 0.1 0-0.2 10 ^3/uL Nucleated Red Blood Cells 0.2 % Sodium Level 139 136-145 mmol/L Potassium Level 3.7 3.5-5.1 mmol/L Chloride Level 106 98-107 mmol/L Carbon Dioxide Level 23 20-31 mmol/L Anion Gap 10 5-15 Blood Urea Nitrogen 36 H 9-23 mg/dL BUN/Creatinine Ratio 24.3 H 10.0-20.0 Serum Glucose 106 74-106 mg/dL Calcium Level 9.3 8.7-10.4 mg/dL Total Bilirubin 0.7 0.2-1.0 mg/dL Aspartate Amino Transferase (AST) 18 13-40 U/L Alanine Aminotransferase (ALT) 12 7-40 U/L Alkaline Phosphatase 95 46-116 U/L Total Protein 5.9 5.7-8.2 g/dL Albumin 3.9 3.2-4.8 g/dL Lactic Acid Level 2.0 0.4-2.0 mmol/L Troponin I High Sensitivity 28 </=34 ng/L Urine Color Light-yellow Yellow Urine Clarity Clear Clear Urine pH 6.0 5.0-9.0 Urine Specific [place] 1.008 1.001-1.035 Urine Protein Negative Negative Urine Ketones Negative Negative Urine Blood Negative Negative /uL Urine Nitrite Negative Negative Urine Bilirubin Negative Negative Urine Urobilinogen Normal Negative mg/dL Urine Leukocyte Esterase Negative Negative /uL Urine RBC 1 0 - 4 /hpf Urine Microscopic WBC 1 0-5 /HPF Urine Squamous Epithelial Cells Few <5 /hpf Urine Bacteria None seen None Seen /hpf Urine Glucose Normal Normal mg/dL Test 09/25/24 15:39 Range/Units POC Glucose 148 H 70-106 mg/dl Microbiology Date/Time Source Procedure Growth Status 09/26/24 04:45 Nose MRSA Screen - Final Complete 09/25/24 18:23 Blood Blood Culture - Preliminary NO GROWTH AFTER 48 HOURS OF INCUBATION. Resulted Plan/Recommendation ASSESSMENT: This is an 79-year-old female resident of [facility] known outside to our practice who initially presented with reported chest discomfort. Upon ED arrival initial 12-lead electrocardiogram had revealed a ventricular paced rhythm at 89bpm with no evidence for acute ischemic changes. Initial HS troponin was found to be 42 with subsequent repeat level of 32, and 28. Initial WBC count was found elevated which chest imaging and urinalysis had revealed no evidence for any acute infectious process. Blood cultures were found negative. Subsequent CT imaging of the abdominal pelvis had revealed a punctate non-obstructing calculus involving the lower pole of left kidney. At present, denies any further chest pain. Denies any further cardiac related symptoms. As the patient presented with chest discomfort, Cardiology services were involved for cardiac aspects of care. Past medical history includes hypertension, hyperlipidemia, coronary artery disease, history of CABG (2010), systolic heart failure, ischemic cardiomyopathy, gout, kidney stone, s/p ESWL, frequent UTI, history of CVA, Diverticulosis, COPD, s/p COVID, depression, Anxiety, GERD, history of appendectomy/hysterectomy/tonsillectomy, and history of BiV ICD (Biotronik) implantation. She is chronically wheelchair-bound. She was previously in hospice for heart failure. She is allergic to codeine. She quit smoking years ago. She is DNR. She also has diagnosis of parkinsonism. Cardiac catheterization of August 26, 2024 (performed in [facility]) revealed triple-vessel [place] coronary artery disease. SUPERINTENDENT of obtuse marginal. SUPERINTENDENT of RCA. Lad with 75% lesion and status post drug-eluting stent deployment. It is of note that there is patent SVG to obtuse marginal and also patent SVG to RCA. Cardiac catheterization of September 2020 revealed ejection fraction of 20%, SUPERINTENDENT of SVG to diagonal, patent TAN, patent SVG to OM, patent SVG to PDA and SUPERINTENDENT of RCA. Echocardiogram of September 04, 2024 reported: Dilated left ventricle. LVEF of 10%. Increased EDP. Pacing wire in right-sided chambers. Mild mitral reg urgitation. As there was no good tricuspid regurgitation jet, right ventricular systolic pressure could not be estimated Echocardiogram of August 25, 2024 (performed in [facility]) for PE old ejection fraction of 20% Echocardiogram of reported: LV EF of 15-20%, biatrial enlargement, pacing wire in the right-sided chambers. Echocardiogram of November 22, 2023 revealed: Dilated left ventricle, LVEF of 10%, pacing wire and right-sided chambers, mild mitral regurgitation. Echocardiogram of August 28, 2023 revealed: Dilated left ventricle with significantly reduced systolic function. LVEF of 20%. Elevated LVEDP, dilated four chambers. Pacing wire was seen in right-sided chamber. [id number] MR. Echocardiogram of January 03, 2023 revealed ejection fraction of 20 to 25% and mild left ventricular enlargement Echocardiogram of March 25, 2023 (performed in the office) revealed four- chamber dilatation, LVEF of 20 to 25%, mild to moderate MR, mild TR, trace pulmonary valve insufficiency and right ventricular systolic pressure of 35 mmHg Echocardiogram of March 21, 2022 revealed ejection fraction of around 20%, mild MR/TR Echocardiogram of February 17, 2021 revealed dilated LV, LVEF around 25%, severe diffuse hypokinesis, increased LVEDP, dilated left and right atria, mild to moderate MR, mild TR. Echocardiogram of December 30, 2020 reported ejection fraction less than 20% and dilated left atrium. Echocardiogram of August 2020 revealed ejection fraction less than 25%, right atrial enlargement, left atrial enlargement and moderate MR. Chest pain (atypical), ACS not considered Coronary artery disease, status post previous CABG/PCI Presence of Biotronik AICD, recent interrogation revealed appropriate function Ischemic cardiomyopathy, history of Acute kidney injury, now resolved Diverticular disease, history of Emphysema/COPD Left renal calculus Gout, history of Hyperlipidemia Leukocytosis Hypertension GERD CARDIAC SUGGESTIONS FOR MANAGEMENT: No indication for ischemic work up at this point Proceed with optimized medical therapy/risk factor modification Proceed with GDMT for systolic heart failure as concurrent conditions permit Proceed with correction/treatment of ongoing concurrent medical conditions Continue home medications Toprol-XL/Entresto/Aldactone/Ranolazine/Atorvastatin Continue DAPT with Aspirin/Plavix On IV antibiotic therapy Management of leukocytosis as per primary team Proceed with close observation for overt signs of fluid overload Proceed with strict intakes, outputs, and daily weights Proceed with close rate and rhythm surveillance Proceed with close hemodynamic surveillance Proceed with optimized blood pressure control Transfuse to sustain HGB level above 7.0 Sustain Magnesium level greater than 2.0 Sustain Potassium level greater than 4.0 Follow up renal function and electrolytes Management in telemetry Will proceed to follow from a cardiac perspective Further recommendations per clinical progression All available diagnostic labs, EKG's, and images were personally reviewed Patient's status, findings, and plan of care was reviewed and discussed with supervising physician Dr. Claudio, who is in agreement with current plan of care. Plan of care discussed with and agreed upon by patient / primary RN Prognosis: Guarded Thank you for allowing me to participate in the care of this patient. Further recommendations based on patients clinical course and progression, primary attending, and other consultants. Will continue to follow with primary attending. If you have any questions or concerns, please do not hesitate to contact me. A total of 75 minutes was spent reviewing the patient record, examining the patient, making a diagnostic and therapeutic plan, discussing this plan with medical personnel, following up on diagnostic studies and following the patient for clinical stability excluding any and all procedures. At least 50% of this time was spent in direct, [id number] contact. Plan discussed with: Patient (Patient and primary RN ) NO FISCHER September 28, 2024 08:07
--- NOTE | 2024-09-28 10:33 | DVHPN2 ---
Reviewed: Care Plan, H&P, Labs, Medications, Previous Orders, Radiology Changes from previous H/P or p: No Changes Eyes: No Pain, No Vision change, No Conjunctivae inflammation, No Eyelid inflammation, No Other, No Redness ENT: No Ear pain, No Ear discharge, No Nose pain, No Nose discharge, No Nose congestion, No Mouth pain, No Mouth swelling, No Throat pain, No Throat swelling, No Other Cardiovascular: Chest Pain; No Palpitations, No Orthopnea, No Paroxysmal Noc. Dyspnea, No Edema, No Lt Headedness, No Other Respiratory: No Cough, No Dry, No Shortness of breath, No SOB with excertion, No Wheezing, No Hemoptysis, No Pleuritic Pain, No Sputum, No Other Gastrointestinal: Nausea; No Vomiting, No Abdominal Pain, No Diarrhea, No Constipation, No Melena, No Hematochezia, No Other Genitourinary: No Dysuria, No Frequency, No Incontinence, No Hematuria, No Retention, No Other Musculoskeletal: No other, No neck pain, No shoulder pain, No arm pain, No back pain, No hand pain, No leg pain, No foot pain Skin: No Rash, No Lesions, No Jaundice, No Bruising, No Other Objective Vitals Vital Signs Date Time Temp Pulse Resp B/P (MAP) Pulse Ox O2 Delivery O2 Flow Rate FiO2 09/28/24 10:01 71 93/48 09/28/24 09:54 16 09/28/24 09:00 98.7 92 98.7 09/28/24 07:40 Nasal Cannula 2.0 09/28/24 07:40 28 Intake/Output Intake and Output 09/28/24 07:00 Intake Total 500 ml Output Total 650 ml Balance -150 ml Intake Oral 400 ml IV Total 100 ml Output Urine Total 650 ml Medications Current Medications Medications Dose Ordered Sig/Asha Route Start Time Stop Time Status Last Admin Dose Admin Aspirin 81 mg DAILY PO 09/26/24 10:00 09/28/24 10:00 81 MG Atorvastatin Calcium 20 mg HS PO 09/25/24 22:00 09/27/24 20:42 20 MG Metoprolol Tartrate 12.5 mg BID PO 09/25/24 22:00 09/28/24 10:01 12.5 MG Clopidogrel Bisulfate 75 mg DAILY PO 09/26/24 10:00 09/28/24 10:00 75 MG Vancomycin HCl 0 ml @ 0 mls/hr UD IV 09/25/24 21:00 Albuterol 2.5 mg Q4HPRN PRN NEB 09/25/24 21:00 09/27/24 18:51 2.5 MG Ipratropium [place] 0.5 mg Q4HPRN PRN NEB 09/25/24 21:00 09/27/24 18:51 0.5 MG Sodium Chloride 10 ml Q8HR IV 09/25/24 22:00 09/28/24 04:53 10 ML Ondansetron HCl 4 mg Q4HP PRN IV 09/25/24 21:00 09/28/24 09:22 4 MG Docusate Sodium 100 mg BIDPRN PRN PO 09/25/24 21:00 Acetaminophen 650 mg Q6HP PRN PO 09/25/24 21:00 09/26/24 00:56 650 MG Nitroglycerin 0.4 mg Q5MINP PRN SL 09/25/24 22:30 Morphine Sulfate 2 mg Q30M PRN IV 09/25/24 22:30 09/26/24 04:34 2 MG Morphine Sulfate 2 mg Q4HPRN PRN IV 09/25/24 23:30 09/28/24 09:24 2 MG Vancomycin HCl 100 ml @ 100 mls/hr Q24H IV 09/27/24 06:00 09/28/24 08:06 100 MLS/HR Laboratory Results Laboratory Tests 09/26/24 04:36 09/28/24 05:16 Urinalysis Test 09/25/24 18:05 Urine Color Light-yellow (Yellow) Urine Clarity Clear (Clear) Urine pH 6.0 (5.0-9.0) Urine Specific [place] 1.008 (1.001-1.035) Urine Protein Negative (Negative) Urine Ketones Negative (Negative) Urine Blood Negative /uL (Negative) Urine Nitrite Negative (Negative) Urine Bilirubin Negative (Negative) Urine Urobilinogen Normal mg/dL (Negative) Urine Leukocyte Esterase Negative /uL (Negative) Urine RBC 1 /hpf (0 - 4) Urine Microscopic WBC 1 /HPF (0-5) Urine Squamous Epithelial Cells Few /hpf (<5) Urine Bacteria None seen /hpf (None Seen) Urine Glucose Normal mg/dL (Normal) Microbiology Microbiology Date/Time Source Procedure Growth Status 09/26/24 04:45 Nose MRSA Screen - Final Complete 09/25/24 18:23 Blood Blood Culture - Preliminary NO GROWTH AFTER 48 HOURS OF INCUBATION. Resulted Labs and/or images reviewed: Labs reviewed by me, Image(s) reviewed by me Assessment/Plan Assessment/Plan Sepsis unknown etiology: Blood cultures negative, urinalysis negative, continue vancomycin Acute chest pain troponin negative, cardiology consult for Dr Mercado appreciated Generalized weakness Severe cardiomyopathy ejection fraction 10 % on 09/04/2024 Acute renal injury Hypertension Acute coronary syndrome Leukocytosis, unspecified Chest x-ray negative CT head neg Continue home medications Time spent 45 minutes Patient is full code [facility] Patient on [facility] health Plan discussed with: Patient My Orders Orders - JANE VGEA MD Procedure Category Date Status Time * Cardiology Consult CONS 09/27/24 Transmitted 10:48 Date of Service: September 28, 2024 Billing Provider: JANE VEGA MD Common Visit Codes: [id number] INP/OBS CARE(HIGH) JANE VEGA MD September 28, 2024 10:33
--- NOTE | 2024-09-28 12:14 | DVH ---
EXAM: XY CHEST XRAY 1 VIEW Indication: Shortness of breath Technique: Single frontal view of the chest was obtained Comparison: XY CHEST PORTABLE on DOS: 09/25/24, XY CHEST PORTABLE on DOS: 09/20/24, XY CHEST XRAY 1 VIEW on DOS: 09/04/24, XY CHEST PORTABLE on DOS: 07/29/24, XY CHEST PORTABLE on DOS: 07/24/24 FINDINGS: Lines and Tubes: Cardiac pacemaker projects over left chest wall. Lungs: No focal consolidation. Pleura: No effusion. No pneumothorax. Cardiomediastinal contours: Mild cardiomegaly. Bones: No acute osseous abnormality. IMPRESSION: No acute cardiopulmonary disease.
[2024-09-28] MEDS: VANCOMYCIN 1GM/250ML KIT 250 ML IV SCH (21:04)
[2024-09-29] VITALS (8 sets, daily range): BP systolic 109–130; BP diastolic 51–62; PULSE 71–76; RESP 15–19; TEMP 97.5–98.2; O2SAT 94–97
--- NOTE | 2024-09-29 05:11 | DVHPN2 ---
Progress Note - Dictate Date Seen: September 29, 2024 Medical Necessity Reason Pt with a Central, PICC or Fol: No vital signs Vital Sign Date Time Temp Pulse Resp B/P (MAP) Pulse Ox O2 Delivery O2 Flow Rate FiO2 09/29/24 05:00 97.5 73 15 109/51 (70) 96 97.5 09/28/24 21:00 2.0 09/28/24 20:00 Nasal Cannula* 28 Total Intake and Output 09/28/24 09/28/24 09/29/24 15:00 23:00 07:00 Intake Total 100 ml 700 ml 150 ml Output Total 200 ml Balance 100 ml 700 ml -50 ml medications Current Medications Medications Dose Ordered Sig/Asha Route Start Time Stop Time Status Last Admin Dose Admin Aspirin 81 mg DAILY PO 09/26/24 10:00 09/28/24 10:00 81 MG Atorvastatin Calcium 20 mg HS PO 09/25/24 22:00 09/28/24 22:17 20 MG Metoprolol Tartrate 12.5 mg BID PO 09/25/24 22:00 09/28/24 10:01 12.5 MG Clopidogrel Bisulfate 75 mg DAILY PO 09/26/24 10:00 09/28/24 10:00 75 MG Vancomycin HCl 0 ml @ 0 mls/hr UD IV 09/25/24 21:00 Albuterol 2.5 mg Q4HPRN PRN NEB 09/25/24 21:00 09/28/24 16:15 2.5 MG Ipratropium [place] 0.5 mg Q4HPRN PRN NEB 09/25/24 21:00 09/28/24 16:15 0.5 MG Sodium Chloride 10 ml Q8HR IV 09/25/24 22:00 09/28/24 22:18 10 ML Ondansetron HCl 4 mg Q4HP PRN IV 09/25/24 21:00 09/29/24 03:56 4 MG Docusate Sodium 100 mg BIDPRN PRN PO 09/25/24 21:00 Acetaminophen 650 mg Q6HP PRN PO 09/25/24 21:00 09/26/24 00:56 650 MG Nitroglycerin 0.4 mg Q5MINP PRN SL 09/25/24 22:30 Morphine Sulfate 2 mg Q30M PRN IV 09/25/24 22:30 09/29/24 03:55 2 MG Morphine Sulfate 2 mg Q4HPRN PRN IV 09/25/24 23:30 09/28/24 22:31 2 MG Vancomycin HCl 250 ml @ 200 mls/hr Q24H IV 09/28/24 17:00 09/28/24 21:04 200 MLS/HR laboratory and microbiology Laboratory Tests 09/28/24 05:16 09/26/24 04:36 Test 09/26/24 04:36 Range/Units Serum Glucose 106 74-106 mg/dL Assessment/Plan ASSESSMENT: This is an 79-year-old female resident of [facility] known outside to our practice who initially presented with reported chest discomfort. Upon ED arrival initial 12-lead electrocardiogram had revealed a ventricular paced rhythm at 89bpm with no evidence for acute ischemic changes. Initial HS troponin was found to be 42 with subsequent repeat level of 32, and 28. Initial WBC count was found elevated which chest imaging and urinalysis had revealed no evidence for any acute infectious process. Blood cultures were found negative. Subsequent CT imaging of the abdominal pelvis had revealed a punctate non-obstructing calculus involving the lower pole of left kidney. At present, denies any further chest pain. Denies any further cardiac related symptoms. As the patient presented with chest discomfort, Cardiology services were involved for cardiac aspects of care. Past medical history includes hypertension, hyperlipidemia, coronary artery disease, history of CABG (2010), systolic heart failure, ischemic cardiomyopathy, gout, kidney stone, s/p ESWL, frequent UTI, history of CVA, Diverticulosis, COPD, s/p COVID, depression, Anxiety, GERD, history of appendectomy/hysterectomy/tonsillectomy, and history of BiV ICD (Biotronik) implantation. She is chronically wheelchair-bound. She was previously in hospice for heart failure. She is allergic to codeine. She quit smoking years ago. She is DNR. She also has diagnosis of parkinsonism. Cardiac catheterization of August 26, 2024 (performed in [facility]) revealed triple-vessel blackfeet coronary artery disease. TRAWL NET MAKER of obtuse marginal. TRAWL NET MAKER of RCA. Lad with 75% lesion and status post drug-eluting stent deployment. It is of note that there is patent SVG to obtuse marginal and also patent SVG to RCA. Cardiac catheterization of September 2020 revealed ejection fraction of 20%, TRAWL NET MAKER of SVG to diagonal, patent TAN, patent SVG to OM, patent SVG to PDA and TRAWL NET MAKER of RCA. Echocardiogram of September 04, 2024 reported: Dilated left ventricle. LVEF of 10%. Increased EDP. Pacing wire in right-sided chambers. Mild mitral regurgitation. As there was no good tricuspid regurgitation jet, right ventricular systolic pressure could not be estimated Echocardiogram of August 25, 2024 (performed in [facility]) for PE old ejection fraction of 20% Echocardiogram of reported: LV EF of 15-20%, biatrial enlargement, pacing wire in the right-sided chambers. Echocardiogram of November 22, 2023 revealed: Dilated left ventricle, LVEF of 10%, pacing wire and right-sided chambers, mild mitral regurgitation. Echocardiogram of August 28, 2023 revealed: Dilated left ventricle with significantly reduced systolic function. LVEF of 20%. Elevated LVEDP, dilated four chambers. Pacing wire was seen in right-sided chamber. [id number] MR. Echocardiogram of January 03, 2023 revealed ejection fraction of 20 to 25% and mild left ventricular enlargement Echocardiogram of March 25, 2023 (performed in the office) revealed four- chamber dilatation, LVEF of 20 to 25%, mild to moderate MR, mild TR, trace pulmonary valve insufficiency and right ventricular systolic pressure of 35 mmHg Echocardiogram of March 21, 2022 revealed ejection fraction of around 20%, mild MR/TR Echocardiogram of February 17, 2021 revealed dilated LV, LVEF around 25%, severe diffuse hypokinesis, increased LVEDP, dilated left and right atria, mild to moderate MR, mild TR. Echocardiogram of December 30, 2020 reported ejection fraction less than 20% and dilated left atrium. Echocardiogram of August 2020 revealed ejection fraction less than 25%, right atrial enlargement, left atrial enlargement and moderate MR. Chest pain (atypical), ACS not considered Coronary artery disease, status post previous CABG/PCI Presence of Logic Nationronik AICD, recent interrogation revealed appropriate function Ischemic cardiomyopathy, history of Acute kidney injury, now resolved Diverticular disease, history of Emphysema/COPD Left renal calculus Gout, history of Hyperlipidemia Leukocytosis Hypertension GERD CARDIAC SUGGESTIONS FOR MANAGEMENT: No indication for ischemic work up at this point Proceed with optimized medical therapy/risk factor modification Proceed with GDMT for systolic heart failure as concurrent conditions permit Proceed with correction/treatment of ongoing concurrent medical conditions Continue home medications Toprol-XL/Entresto/Aldactone/Ranolazine/Atorvastatin Continue DAPT with Aspirin/Plavix On IV antibiotic therapy Management of leukocytosis as per primary team Proceed with close observation for overt signs of fluid overload Proceed with strict intakes, outputs, and daily weights Proceed with close rate and rhythm surveillance Proceed with close hemodynamic surveillance Proceed with optimized blood pressure control Transfuse to sustain HGB level above 7.0 Sustain Magnesium level greater than 2.0 Sustain Potassium level greater than 4.0 Follow up renal function and electrolytes Management in telemetry Will proceed to follow from a cardiac perspective Further recommendations per clinical progression All available diagnostic labs, EKG's, and images were personally reviewed Patient's status, findings, and plan of care was reviewed and discussed with supervising physician Dr. Claudio, who is in agreement with current plan of care. Plan of care discussed with and agreed upon by patient / primary RN Prognosis: Guarded Thank you for allowing me to participate in the care of this patient. Further recommendations based on patients clinical course and progression, primary attending, and other consultants. Will continue to follow with primary attending. If you have any questions or concerns, please do not hesitate to contact me. A total of 75 minutes was spent reviewing the patient record, examining the patient, making a diagnostic and therapeutic plan, discussing this plan with medical personnel, following up on diagnostic studies and following the patient for clinical stability excluding any and all procedures. At least 50% of this time was spent in direct, [id number] contact. Plan discussed with: Patient (Patient and primary RN ) Dietary Evaluation Review Comments: 1. Continue current diet as tolerated 2. Encourage PO intakes >50% of meals; appropriate goal given advanced age 3. Will monitor intakes and assess need for oral supplements on FU Expected Outcomes/Goals: Maintain weight, adequate nutritional intakes. Plan discussed with: Patient AMADONO SUTTON Tiffany WALLER September 29, 2024 05:11
[2024-09-29 06:22] LABS: Basophils # (auto) 0.1 10 ^3/uL (0-0.2); Basophils % (auto) 0.7 % (0.0-2.0); Eosinophils # (auto) 0.7 10 ^3/uL (0-0.8); Hematocrit 32.8 % (36.0-46.0); Hemoglobin 11.3 g/dL (12.2-16.2); Lymphocytes # (auto) 1.4 10 ^3/uL (0.4-5.4); Lymphocytes % (auto) 19.6 % (10.0-50.0); Mean Corpuscular Hemoglobin 29.5 pg (28.0-32.0); Mean Corpuscular Hgb Conc. 34.3 g/dL (32.0-36.0); Mean Corpuscular Volume 85.9 fL (80.0-100.0); Monocytes % (auto) 13.8 % (0.0-12.0); Neutrophils # (auto) 4.1 10 ^3/uL (1.6-8.6); Neutrophils % (auto) 55.9 % (37.0-80.0); Nucleated Red Blood Cells % 0.1 %; Platelet Count (auto) 272 10^3/uL (140-450); Red Blood Cells 3.81 10^6/uL (4.0-5.20); Red Cell Distribution Width 16.3 % (11.8-14.3); White Blood Cell 7.3 10^3/uL (4.4-10.8)
[2024-09-29] MEDS ORDERED: PERCOT PO ×2 (09:07→09:59)
--- NOTE | 2024-09-29 09:11 | DVHPN2 ---
Reviewed: Care Plan, H&P, Labs, Medications, Previous Orders, Radiology Changes from previous H/P or p: No Changes Eyes: No Pain, No Vision change, No Conjunctivae inflammation, No Eyelid inflammation, No Other, No Redness ENT: No Ear pain, No Ear discharge, No Nose pain, No Nose discharge, No Nose congestion, No Mouth pain, No Mouth swelling, No Throat pain, No Throat swelling, No Other Cardiovascular: Chest Pain; No Palpitations, No Orthopnea, No Paroxysmal Noc. Dyspnea, No Edema, No Lt Headedness, No Other Respiratory: No Cough, No Dry, No Shortness of breath, No SOB with excertion, No Wheezing, No Hemoptysis, No Pleuritic Pain, No Sputum, No Other Gastrointestinal: Nausea; No Vomiting, No Abdominal Pain, No Diarrhea, No Constipation, No Melena, No Hematochezia, No Other Genitourinary: No Dysuria, No Frequency, No Incontinence, No Hematuria, No Retention, No Other Musculoskeletal: No other, No neck pain, No shoulder pain, No arm pain, No back pain, No hand pain, No leg pain, No foot pain Skin: No Rash, No Lesions, No Jaundice, No Bruising, No Other Objective Vitals Vital Signs Date Time Temp Pulse Resp B/P (MAP) Pulse Ox O2 Delivery O2 Flow Rate FiO2 09/29/24 08:40 76 17 115/62 09/29/24 06:24 94 Nasal Cannula 1.0 09/29/24 06:24 24 09/29/24 05:00 97.5 97.5 Intake/Output Intake and Output 09/29/24 07:00 Intake Total 950 ml Output Total 200 ml Balance 750 ml Intake Oral 850 ml IV Total 100 ml Output Urine Total 200 ml # Voids 1 Medications Current Medications Medications Dose Ordered Sig/Asha Route Start Time Stop Time Status Last Admin Dose Admin Aspirin 81 mg DAILY PO 09/26/24 10:00 09/28/24 10:00 81 MG Atorvastatin Calcium 20 mg HS PO 09/25/24 22:00 09/28/24 22:17 20 MG Metoprolol Tartrate 12.5 mg BID PO 09/25/24 22:00 09/28/24 10:01 12.5 MG Clopidogrel Bisulfate 75 mg DAILY PO 09/26/24 10:00 09/28/24 10:00 75 MG Vancomycin HCl 0 ml @ 0 mls/hr UD IV 09/25/24 21:00 Albuterol 2.5 mg Q4HPRN PRN NEB 09/25/24 21:00 09/28/24 16:15 2.5 MG Ipratropium [place] 0.5 mg Q4HPRN PRN NEB 09/25/24 21:00 09/28/24 16:15 0.5 MG Sodium Chloride 10 ml Q8HR IV 09/25/24 22:00 09/29/24 05:48 10 ML Ondansetron HCl 4 mg Q4HP PRN IV 09/25/24 21:00 09/29/24 08:39 4 MG Docusate Sodium 100 mg BIDPRN PRN PO 09/25/24 21:00 Acetaminophen 650 mg Q6HP PRN PO 09/25/24 21:00 09/26/24 00:56 650 MG Nitroglycerin 0.4 mg Q5MINP PRN SL 09/25/24 22:30 Morphine Sulfate 2 mg Q30M PRN IV 09/25/24 22:30 09/29/24 03:55 2 MG Morphine Sulfate 2 mg Q4HPRN PRN IV 09/25/24 23:30 09/29/24 08:40 2 MG Vancomycin HCl 250 ml @ 200 mls/hr Q24H IV 09/28/24 17:00 09/28/24 21:04 200 MLS/HR Laboratory Results Laboratory Tests 09/26/24 04:36 09/29/24 05:15 Urinalysis Test 09/25/24 18:05 Urine Color Light-yellow (Yellow) Urine Clarity Clear (Clear) Urine pH 6.0 (5.0-9.0) Urine Specific [place] 1.008 (1.001-1.035) Urine Protein Negative (Negative) Urine Ketones Negative (Negative) Urine Blood Negative /uL (Negative) Urine Nitrite Negative (Negative) Urine Bilirubin Negative (Negative) Urine Urobilinogen Normal mg/dL (Negative) Urine Leukocyte Esterase Negative /uL (Negative) Urine RBC 1 /hpf (0 - 4) Urine Microscopic WBC 1 /HPF (0-5) Urine Squamous Epithelial Cells Few /hpf (<5) Urine Bacteria None seen /hpf (None Seen) Urine Glucose Normal mg/dL (Normal) Microbiology Microbiology Date/Time Source Procedure Growth Status 09/26/24 04:45 Nose MRSA Screen - Final Complete 09/25/24 18:23 Blood Blood Culture - Preliminary NO GROWTH AFTER 72 HOURS OF INCUBATION. Resulted Labs and/or images reviewed: Labs reviewed by me, Image(s) reviewed by me Assessment/Plan Assessment/Plan Sepsis unknown etiology resolved: Blood cultures negative, urinalysis negative, treated with vancomycin Acute chest pain troponin negative, cardiology consult for Dr Rogelio hill, advised to continue home medications and no further cardiac workup Generalized weakness Severe cardiomyopathy ejection fraction 10 % on 09/04/2024 Acute renal injury Hypertension Acute coronary syndrome Leukocytosis, unspecified Chest x-ray negative CT head neg CT abdomen pelvis without contrast neg Continue home medications Time spent 45 minutes Patient is full code Patient [facility] from [facility] Patient on [facility] Plan discussed with: Patient My Orders Orders - JANE VEGA MD Procedure Category Date Status Time Chest Xray 1 View XY 09/28/24 Resulted 10:32 Date of Service: September 29, 2024 Billing Provider: JANE VEGA MD Common Visit Codes: [id number] INP/OBS CARE(HIGH) JANE VEGA MD September 29, 2024 09:11
--- NOTE | 2024-09-29 09:16 | DVHDS2 ---
Discharge Summary Date of Admission September 25, 2024 at 22:22 Date of Discharge: September 29, 2024 Admitting Diagnosis Chest pain Wounds: None Labs/Diagnostic Data: Laboratory Results Test 09/29/24 05:15 09/28/24 05:16 09/26/24 04:36 09/25/24 18:23 White Blood Count 7.3 10^3/uL (4.4-10.8) Red Blood Count 3.81 10^6/uL (4.0-5.20) Hemoglobin 11.3 g/dL (12.2-16.2) Hematocrit 32.8 % (36.0-46.0) Mean Corpuscular Volume 85.9 fL (80.0-100.0) Mean Corpuscular Hemoglobin 29.5 pg (28.0-32.0) Mean Corpuscular Hemoglobin Concent 34.3 g/dL (32.0-36.0) Red Cell Distribution Width 16.3 % (11.8-14.3) Platelet Count 272 10^3/uL (140-450) Mean Platelet Volume 8.3 fL (6.9-10.8) Neutrophils (%) (Auto) 55.9 % (37.0-80.0) Lymphocytes (%) (Auto) 19.6 % (10.0-50.0) Monocytes (%) (Auto) 13.8 % (0.0-12.0) Eosinophils (%) (Auto) 10.0 % (0.0-7.0) Basophils (%) (Auto) 0.7 % (0.0-2.0) Neutrophils # (Auto) 4.1 10 ^3/uL (1.6-8.6) Lymphocytes # (Auto) 1.4 10 ^3/uL (0.4-5.4) Monocytes # (Auto) 1.0 10 ^3/uL (0-1.3) Eosinophils # (Auto) 0.7 10 ^3/uL (0-0.8) Basophils # (Auto) 0.1 10 ^3/uL (0-0.2) Nucleated Red Blood Cells 0.1 % Creatinine 0.92 mg/dL (0.550-1.02) Glomerular Filtration Rate Calc 63 mL/min (>90) Vancomycin Level Trough 8.7 ug/mL (5-10) Sodium Level 139 mmol/L (136-145) Potassium Level 3.7 mmol/L (3.5-5.1) Chloride Level 106 mmol/L (98-107) Carbon Dioxide Level 23 mmol/L (20-31) Anion Gap 10 (5-15) Blood Urea Nitrogen 36 mg/dL (9-23) BUN/Creatinine Ratio 24.3 (10.0-20.0) Serum Glucose 106 mg/dL (74-106) Calcium Level 9.3 mg/dL (8.7-10.4) Total Bilirubin 0.7 mg/dL (0.2-1.0) Aspartate Amino Transferase (AST) 18 U/L (13-40) Alanine Aminotransferase (ALT) 12 U/L (7-40) Alkaline Phosphatase 95 U/L (46-116) Total Protein 5.9 g/dL (5.7-8.2) Albumin 3.9 g/dL (3.2-4.8) Lactic Acid Level 2.0 mmol/L (0.4-2.0) Troponin I High Sensitivity 28 ng/L (</=34) Test 09/25/24 18:05 09/25/24 15:39 Urine Color Light-yellow (Yellow) Urine Clarity Clear (Clear) Urine pH 6.0 (5.0-9.0) Urine Specific [place] 1.008 (1.001-1.035) Urine Protein Negative (Negative) Urine Ketones Negative (Negative) Urine Blood Negative /uL (Negative) Urine Nitrite Negative (Negative) Urine Bilirubin Negative (Negative) Urine Urobilinogen Normal mg/dL (Negative) Urine Leukocyte Esterase Negative /uL (Negative) Urine RBC 1 /hpf (0 - 4) Urine Microscopic WBC 1 /HPF (0-5) Urine Squamous Epithelial Cells Few /hpf (<5) Urine Bacteria None seen /hpf (None Seen) Urine Glucose Normal mg/dL (Normal) POC Glucose 148 mg/dl (70-106) Other Laboratory Tests 09/29/24 05:15 09/26/24 04:36 Brief Hx & Hospital Course: 79-year-old female with severe cardiomyopathy with the ejection fraction 10 % 09/04/2024 hypotension coronary artery disease came in for chest pain troponin negative x3 seen by general expeditor Dr. Mercado advised to continue home medications no further cardiac workup . patient uses 2 L of oxygen [place] [id number] blood cultures negative treated with Rocephin urine analysis negative also complained of lower abdominal pain CT abdomen pelvis without contrast negative chest x-ray negative CT head negative. Patient being [facility] home health. Prescription for Percocet transmitted to the pharmacy. Reviewed all her home medications. She will continue all her home medications. Follow up with the primary Dr Dr. Garcia. Consults/Reason for consult Cardiology Dr. Mercado Operations or Procedures CT abdomen pelvis without contrast Condition at Discharge: Fair Final Diagnosis/Problems List Sepsis unknown etiology : Blood cultures negative, urinalysis negative, continue vancomycin Acute chest pain troponin negative, cardiology consult for Dr Mercado appreciated, advised to continue home medications and no further cardiac workup Generalized weakness Severe cardiomyopathy ejection fraction 10 % on 09/04/2024 Acute renal injury Hypertension Acute coronary syndrome Leukocytosis, unspecified Chest x-ray negative CT head neg CT abdomen pelvis without contrast neg Discharge Disposition: Assisted Living Facility Discharge Instruct/Medications Diet: Cardiac 2g Na,low cholest Activity: Light activity Follow Up/Referral: Follow up with the primary Dr Dr. garcia general expeditor Dr. Mercado Resume all previous home medications Medications: Percocet [facility] (Time taken for discharge summary 39 minutes) Discharge Statement: "Patient was advised to return to the ER or call 911 if any headaches, dizziness, shortness of breath, chest pain, abdominal pain, bleeding, fevers, or worsening of medical condition. Patient was counseled about treatment plan, medications, possible side effects, patientverbalized understanding. All questions were answered to the best of my ability. This discharge took greater then 30 minutes in planning, reviewing documentation, counseling the patient, and discussing with other team members." ASSESSMENT ASSESSMENT Hospital Course Improved Assessment Sepsis unknown etiology : Blood cultures negative, urinalysis negative, continue vancomycin Acute chest pain troponin negative, cardiology consult for Dr Mercado appreciated, advised to continue home medications and no further cardiac workup Generalized weakness Severe cardiomyopathy ejection fraction 10 % on 09/04/2024 Acute renal injury Hypertension Acute coronary syndrome Leukocytosis, unspecified Chest x-ray negative CT head neg CT abdomen pelvis without contrast neg Date of Service: September 29, 2024 Billing Provider: JANE VEGA MD Common Visit Codes: [id number] DISCH DAY >30min JANE VEGA MD September 29, 2024 09:16
[2024-09-29] MEDS ORDERED: CIPR-173 PO (11:33)
== END 2024-09-29 16:15 | disposition home health service (06) | DRG 871 ==
LOC: ER 13:30 → EDBD 13:30 → OVERFLOW 22:22 → TELE-EAST 23:53
PROVIDERS: ADMIT Family Medicine; ATTEND Family Medicine
PROC: 06HY33Z Insertion of Infusion Device into Lower Vein, Percutaneous Approach (ICD-10-PCS; principal; 2024-09-25)
DX: A41.9 Sepsis, unspecified organism (principal); N17.0 Acute kidney failure with tubular necrosis; I24.9 Acute ischemic heart disease, unspecified; I50.22 Chronic systolic (congestive) heart failure; I95.9 Hypotension, unspecified; J43.9 Emphysema, unspecified; Z66 Do not resuscitate; N20.0 Calculus of kidney; M10.9 Gout, unspecified; K57.30 Diverticulosis of large intestine without perforation or abscess without bleeding; K21.9 Gastro-esophageal reflux disease without esophagitis; J44.89 Other specified chronic obstructive pulmonary disease; E78.5 Hyperlipidemia, unspecified; G20.C Parkinsonism, unspecified; I11.0 Hypertensive heart disease with heart failure; I25.10 Atherosclerotic heart disease of native coronary artery without angina pectoris; F32.A Depression, unspecified; F41.9 Anxiety disorder, unspecified; I25.5 Ischemic cardiomyopathy; I25.82 Chronic total occlusion of coronary artery; Z90.49 Acquired absence of other specified parts of digestive tract; Z90.710 Acquired absence of both cervix and uterus; Z88.5 Allergy status to narcotic agent; Z87.891 Personal history of nicotine dependence; Z87.442 Personal history of urinary calculi; Z87.440 Personal history of urinary (tract) infections; Z86.73 Personal history of transient ischemic attack (TIA), and cerebral infarction without residual deficits; Z86.16 Personal history of COVID-19; Z83.3 Family history of diabetes mellitus; Z82.49 Family history of ischemic heart disease and other diseases of the circulatory system; Z82.3 Family history of stroke; Z95.1 Presence of aortocoronary bypass graft; Z95.5 Presence of coronary angioplasty implant and graft; Z95.810 Presence of automatic (implantable) cardiac defibrillator; Z99.3 Dependence on wheelchair; Z88.1 Allergy status to other antibiotic agents
CPT/HCPCS: 36415; 71045; 74176; 80048; 80053; 80202; 81001; 82565; 82962; 83605; 84484; 85025; 87040; 87081; 93005; 94640; 96361; 96374; 96375; 97163; 99291; G0378; J1956; J2405

== ENCOUNTER 2024-10-09 16:16 | Inpatient (IN) | payer OTHER, MEDICAID ==
[~2024-10-09] VITALS: Ht 162.6 cm; Wt 80.1 kg
[2024-10-09] VITALS (9 sets, daily range): BP systolic 94–131; BP diastolic 42–83; PULSE 56–80; RESP 12–18; TEMP 97.4–97.6; O2SAT 92–98
[~2024-10-09 16:16] MED LIST changes: +CIPR-173 PO; +PERCOT PO
[2024-10-09] MEDS: HEPARIN IN NS 1000Units/500mL 1,500 ML ONE (16:42)
[2024-10-09] MEDS: IODIXANOL 320MG/ML 100ML BTL IV ONE ×2 (16:42→17:45)
[2024-10-09] MEDS: ANGIOMAX 250 MG VIAL IV ONE (16:47)
[2024-10-09] MEDS: fentaNYL CITRATE 100 MCG/2 ML VL ONE (16:47)
[2024-10-09] MEDS: LIDOCAINE 2%HCL (LOCAL ANESTH.) INJ 20ML MDV ONE (16:48)
[2024-10-09] MEDS: MIDAZOLAM HCL 2MG/2ML 2ml VIAL (1mg/ml) ONE (16:48)
[2024-10-09] MEDS: SODIUM CHL 0.9% 50 ML ONE (16:48)
[2024-10-09 16:54] LABS: Basophils # (auto) 0.1 10 ^3/uL (0-0.2); Basophils % (auto) 1.4 % (0.0-2.0); Eosinophils # (auto) 0.4 10 ^3/uL (0-0.8); Eosinophils % (auto) 4.6 % (0.0-7.0); Hematocrit 38.6 % (36.0-46.0); Hemoglobin 12.9 g/dL (12.2-16.2); Lymphocytes # (auto) 1.9 10 ^3/uL (0.4-5.4); Mean Corpuscular Hemoglobin 29.5 pg (28.0-32.0); Mean Corpuscular Hgb Conc. 33.5 g/dL (32.0-36.0); Mean Corpuscular Volume 88.3 fL (80.0-100.0); Monocytes # (auto) 1.1 10 ^3/uL (0-1.3); Monocytes % (auto) 14.4 % (0.0-12.0); Neutrophils # (auto) 4.2 10 ^3/uL (1.6-8.6); Neutrophils % (auto) 54.6 % (37.0-80.0); Nucleated Red Blood Cells % 0.2 %; Platelet Count (auto) 385 10^3/uL (140-450); Red Blood Cells 4.37 10^6/uL (4.0-5.20); Red Cell Distribution Width 16.2 % (11.8-14.3); White Blood Cell 7.7 10^3/uL (4.4-10.8)
--- NOTE | 2024-10-09 16:57 | DVHINCON2 ---
Date Seen: October 09, 2024 Referring Physician Jelly Levy MD Reason for Consultation STEMI History of Present Illness This is a pleasant 79-year-old female who presented to the emergency room via EMS with a chief complaint of chest pain since last night. Describes her chest pain to the lower substernal area close to the epigastric area, pressure/sharp in nature, nonradiating, non provoked, intermittent, associated with a dry cough, and rated as 8/10. The patient took Percocet at home with no relief of symptoms. She was also medicated with ASA 324 mg without any relief. She underwent a 12 lead electrocardiogram reviewed by on-call washing machine assembler, Dr. Mijares, deemed to be a STEMI with code activated at that time. The patient reports a recent admission to [facility] where she underwent a cardiac catheterization on 08/26/2024 revealing triple-vessel mus[place]ogee coronary artery disease, CT of obtuse marginal, SVP MONETIZATION of RCA, and LAD with 75% lesion status post drug-eluting stent deployment. It is of note that there was patent SVG to obtuse marginal and also patent SVG to RCA. States she has been compliant with DAPT. Baseline troponin level is 21 ng/L. Follows up with primary washing machine assembler Dr. Mercado. Past medical history includes severe coronary artery disease status post quadruple vessel CABG in 2010 status post PTCA including 1DES to graft on 08/26/2024, ischemic cardiomyopathy, congestive heart failure, status post explantation of Bi-V AICD and implantation of new Bi-V AICD on 08/04/2020 (Biotronik), hypertension, dyslipidemia, history of CVA, gout, nephrolithiasis status post ESWL, frequent UTIs, diverticulosis, COPD, depression, anxiety, GERD, and obesity. Past Medical History Past medical history reviewed. No other significant than mentioned above. Past Surgical History PTCA including 1DES to LAD, 08/26/2024 Explantation of Bi-V AICD and implantation of new Bi-V AICD (Biotronik), 08/04/2020 Quadruple vessel CABG, 2010 Family History: Arthritis Cardiovascular disease G8 MOTHER, Onset:Unknown Cerebrovascular accident (CVA) G8 FATHER Coronary artery disease G8 MOTHER, Onset:Unknown FH: diabetes mellitus G8 MOTHER, Onset:Unknown FH: heart disease G8 MOTHER, Onset:Unknown FH: hypertension G8 MOTHER, Onset:Unknown FH: lupus 19 CHILD FH: myocardial infarction G8 MOTHER, Onset:Unknown Family history: Cardiovascular disease G8 MOTHER, Onset:Unknown G8 FATHER, Onset:Unknown Glaucoma G8 MOTHER, Onset:Unknown Family History Family history reviewed. Social History Denies the use of illicit drugs, alcohol, or tobacco use. Allergies: Coded Allergies: Ceftriaxone (Verified Allergy, Intermediate, generalized rash, 11/08/22) SENIOR PRINCIPAL SOFTWARE ENGINEERCARLENE MEJIA Hydrocodone (Verified Allergy, Unknown, rash, 05/18/23) tylenol is okay per patient Home Meds Active Scripts Ciprofloxacin Hcl (Cipro) 500 Mg Tab, 1 TAB PO BID, #20 TAB Prov:JANE VEGA MD 09/29/24 Oxycodone W/ Acetaminophen (Percocet 5/325MG) 1 Tab Tb, 1 TAB PO QID, #30 TAB Prov:JANE VEGA MD 09/29/24 Phenazopyridine HCl (Eq Urinary Pain Relief Ma) 99.5 Mg Tab, 99.5 MG PO TID for 10 Days, #30 TAB Prov:PHILL LEAL RESDIENT 09/23/24 Cephalexin Monohydrate (Cephalexin) 500 Mg Cap, 1 CAP PO BID for 4 Days, #10 CAP Prov:PHILL LEAL RESDIENT 09/23/24 Metoprolol Succinate (Metoprolol Succinate Er) 25 Mg Tab, 1 TAB PO DAILY for 30 Days, #30 TAB 5 Refills Prov:AXEL CARABALLO RESIDENT 09/06/24 Spironolactone (Aldactone) 25 Mg Tab, 25 MG PO DAILY for 30 Days, #30 TAB Prov:BHARAT MICHELLE RESIDENT 07/22/24 Oxybutynin Chloride (Oxybutynin Chloride) 5 Mg Tab, 5 MG PO Q8HR for 30 Days, #90 TAB Prov:BHARAT MICHELLE RESIDENT 07/22/24 Atorvastatin Calcium (ATORVASTATIN CALCIUM) 20 Mg Tab, 40 MG PO HS for 30 Days, #60 TAB Prov:BHARAT MICHELLE RESIDENT 07/22/24 Acetaminophen (Acetaminophen) 325 Mg Tab, 650 MG PO TID for 10 Days, #60 TAB Prov:BHARAT MICHELLE RESIDENT 07/22/24 Duloxetine Hydrochloride (Duloxetine Hydrochloride) 30 Mg Cap, 30 MG PO DAILY for 30 Days, #30 CAP Prov:WINSOME GOMEZ MD 04/29/24 Clopidogrel Bisulfate (CLOPIDOGREL) 75 Mg Tab, 75 MG PO DAILY for 30 Days, #30 TAB 5 Refills Prov:YENNY FRAIRE MD 11/26/23 Ranolazine (Ranolazine ER) 500 Mg Tab, 500 MG PO BID for 30 Days, #60 TAB 2 Refills Prov:MAGAN RUSS [facility] 09/16/23 Reported Medications Polyethylene Glycol 3350 (Miralax) 17 Gm Pow, 17 GM PO DAILY PRN for FOR CONSTIPATION for 30 Days, #30 01/28/24 Ipratropium-Albuterol (Ipratropium Conner/Albut) 1 Yuli Yuli, 1 VIAL NEB Q6HPRN PRN for SHORTNESS OF BREATH for 13 Days, #180 09/05/23 Fluticasone-Salmeterol (Fluticasone Propionate/SA 250-50 Mcg/Dose) 1 Aer Aer, 1 PUFF INH BID for 30 Days, #60 09/05/23 Albuterol Sulfate (Albuterol Sulfate Hfa) 108 Mcg/Act Aer, 2 PUFF INH Q4HPRN PRN for dyspnea for 17 Days, #18 09/05/23 Cholecalciferol (VITAMIN D3) 2,000 Unit Tab, 1 TAB PO BID for 30 Days, #60 08/28/23 Multiple Vitamin (Tab-A-Radha) Tab, 1 TAB PO DAILY for 30 Days, #30 08/28/23 Aspirin (Aspir-Low) 81 Mg Tab, 1 TAB PO DAILY for 30 Days, #30 08/28/23 Ascorbic Acid (VITAMIN C TABLET) 500 Mg Tb, 1 TAB PO BID for 30 Days, #60 05/18/23 Pantoprazole Sodium Sesquihydr (Pantoprazole Sodium) 40 Mg Tab, 1 TAB PO DAILY 05/18/23 Fluoxetine HCl (Pmdd) (Fluoxetine HCl) 20 Mg Tab, 20 MG PO DAILY, TAB 05/30/20 Home Meds Home medications reviewed. Review of Systems Constitutional: No symptom reported Ears, Nose, & Throat: No symptom reported Eyes: No symptom reported Neurological: No symptoms reported Pulmonary/Respiratory: No symptom reported Cardiovascular: Lower substernal chest pain Gastrointestinal: Epigastric pain Genitourinary: No symptom reported Musculoskeletal: No symptom reported Skin: No symptom reported Psychiatric: No symptom reported Endocrine: No symptom reported Hemotologic/Lymphatic: No symptom reported Vital Signs Vital Signs Date Time Temp Pulse Resp B/P (MAP) Pulse Ox O2 Delivery O2 Flow Rate FiO2 10/09/24 16:17 73 10/09/24 16:16 98.9 20 112/70 (84) 95 98.9 Physical Exam General Appearance: Cooperative. Well developed. Obese. In no acute distress Head Exam: Normal inspection Neck Exam: Normal inspection. Non-tender. Normal alignment Pulmonary/Respiratory: Chest non-tender. Clear bilateral breath sounds Cardiovascular/Chest: Regular rate and rhythm. S1, S2. Paced rhythm with underlying sinus rhythm. No murmurs. No JVD. Peripheral Pulses: 2+ Radial (R). 2+ Radial (L). 2+ Pedal (R). 2+ Pedal (L) Abdominal Exam: Normal bowel sounds. Soft. Nontender. No hepatospenomegaly. No masses Ankle Exam: Negative ankle edema Lower extremities: Negative lower extremity edema Neuro/Mental Status: A&O x4. Coherent Thoughts/Psych: Normal thought pattern. Appropriate mood and affect. Good judgement and insight Appearance: In no acute distress Skin Exam: Normal inspection. Normal color. Warm. Dry Labs/Diagnostic Data Labs Test 10/09/24 14:55 Range/Units White Blood Count 7.7 4.4-10.8 10^3/uL Red Blood Count 4.37 4.0-5.20 10^6/uL Hemoglobin 12.9 12.2-16.2 g/dL Hematocrit 38.6 36.0-46.0 % Mean Corpuscular Volume 88.3 80.0-100.0 fL Mean Corpuscular Hemoglobin 29.5 28.0-32.0 pg Mean Corpuscular Hemoglobin Concent 33.5 32.0-36.0 g/dL Red Cell Distribution Width 16.2 H 11.8-14.3 % Platelet Count 385 140-450 10^3/uL Mean Platelet Volume 7.9 6.9-10.8 fL Neutrophils (%) (Auto) 54.6 37.0-80.0 % Lymphocytes (%) (Auto) 25.0 10.0-50.0 % Monocytes (%) (Auto) 14.4 H 0.0-12.0 % Eosinophils (%) (Auto) 4.6 0.0-7.0 % Basophils (%) (Auto) 1.4 0.0-2.0 % Neutrophils # (Auto) 4.2 1.6-8.6 10 ^3/uL Lymphocytes # (Auto) 1.9 0.4-5.4 10 ^3/uL Monocytes # (Auto) 1.1 0-1.3 10 ^3/uL Eosinophils # (Auto) 0.4 0-0.8 10 ^3/uL Basophils # (Auto) 0.1 0-0.2 10 ^3/uL Nucleated Red Blood Cells 0.2 % Assessment Acute ST-elevation myocardial infarction Ischemic cardiomyopathy with LVEF of 10% Severe coronary artery disease status post quadruple vessel CABG status post PCI of the LAD x 1DES Presence of Bi-V AICD (Biotronik) Hypertension Dyslipidemia GERD Plan/Recommendation (Dr. Mijares) Code STEMI called by Dr. Mijares. Scheduled for emergent cardiac catheterization and coronary angiogram at first available. All risks and benefits of the procedure were discussed with the patient who agrees to proceed with interve ntion. All questions answered. The patient underwent a recent transthoracic echocardiogram revealing a LVEF of 10%. Continue GDMT for CHF as renal function hemodynamics permit. The patient will be referred to primary washing machine assembler Dr. Mercado for further assessment and recommendations. Thank you for allowing us to participate in this patient's care. Please call if you have any questions or concerns. Critical care time: 45 min. This medical document was created using an electronic medical record system with voice recognition software and computerized dictation system. Although this document has been carefully revi ewed, there might still be some phonetic and typographical errors. Occasional wrong-word or ``sound-alike substitutions may have occurred due to the inherent limitations of voice recognition software. These areas are purely typographical due to imperfections of the software programs and do not reflect any compromise in the patient's medical care. Please read the chart carefully and recognize, using context, where these substitutions have occurred. Plan discussed with: Patient, Other NYHA Physical activity limitations: Class3(Marked) ordinary (activity causes symtoms) Date of Service: October 09, 2024 Billing Provider: HUNTER ZHANG Cardiology Common Codes: 95354-XHWDSCBV CARE 30-74 MIN HUNTER ZHANG October 09, 2024 16:57
[2024-10-09 17:09] LABS: INR 1.02 (0.9-1.15); Partial Thromboplastin Time 20.9 SEC (24.5-34.5); Prothrombin Time 10.8 sec (9.3-11.8)
[2024-10-09 17:12] LABS: Albumin 4.2 g/dL (3.2-4.8); Alkaline Phosphatase 68 U/L (46-116); Anion Gap 7 (5-15); Aspartate Aminotransferase 33 U/L (13-40); Bilirubin, Total 0.4 mg/dL (0.2-1.0); Calcium 9.6 mg/dL (8.7-10.4); Carbon Dioxide 22 mmol/L (20-31); Glucose 102 mg/dL (74-106); Sodium 139 mmol/L (136-145); Total Protein 6.5 g/dL (5.7-8.2)
[2024-10-09 17:14] LABS: Alanine Aminotransferase 14 U/L (7-40); BUN/Creatinine Ratio 17.5 (10.0-20.0); Blood Urea Nitrogen 21 mg/dL (9-23); Chloride 110 mmol/L (98-107); Potassium 4.5 mmol/L (3.5-5.1)
--- NOTE | 2024-10-09 17:18 | DVH ---
INDICATION: cp TECHNIQUE: Frontal view of the chest. COMPARISON: XY CHEST XRAY 1 VIEW on DOS: 09/28/24, XY CHEST PORTABLE on DOS: 09/25/24, XY CHEST PORTABLE on DOS: 09/20/24, XY CHEST XRAY 1 VIEW on DOS: 09/04/24, XY CHEST PORTABLE on DOS: 07/29/24 FINDINGS: Finding:. The heart mildly enlarged with median sternotomy. Left-sided AICD with leads in right atriu m and right ventricle. There is uncoiling atherosclerotic change thoracic aorta. mediastinal contours are grossly unremarkable. There is no evidence of pleural disease. The lungs are clear. The bony structures of the chest are intact without fracture. IMPRESSION: 1. No evidence of acute disease. 2. Mild cardiomegaly with median sternotomy
[2024-10-09] MEDS ORDERED: NITROGLYCERIN 0.4 MG SL TAB SL PRN (18:00)
[2024-10-09] MEDS ORDERED: MORPHINE SULFATE INJ 2 MG/ml SYRG IV PRN (18:00)
[2024-10-09] MEDS: ATROPINE SULF 1 MG/10ml SYR ONE (18:00)
--- NOTE | 2024-10-09 18:12 | DVHOP2 ---
Operative Report - 2 Report Details Date: 10/09/24 Preop Diagnosis: ST-elevation myocardial infarction Postop Diagnosis: Three-vessel coronary artery disease. Stable. Cardiomyopathy. Surgeon: Merari Mijares MD Anesthesiologist: Conscious sedation Anesthesia: Mac, Local Consent: The patient was informed of the risks and benefits of the procedure. These include but are not limited to complications of anesthesia, postoperative infection, incomplete relief of symptoms, recurrence of symptoms, damage to blood vessels, nerves and tendons, deep venous thrombosis, pulmonary embolism and possible need for repeat surgery in the future. Complications: No complications Findings: Open saphenous grafts. Patent LAD and circumflex. Patent saphenous grafts to the RCA in marginal branches. Indications for Surgery: Chest pain. Left bundle-branch block Name of Procedure Performed Left heart catheterization bilateral cine coronary angiography. Left ventriculography. Visualization of saphenous venous grafts. Procedure Details Procedure Details: Prior local anesthesia with 2% lidocaine to the right groin and full informed consent obtained the patient was prepped and draped in usual fashion followed by placement of a six [place] sheath into the right femoral artery through which six Gib[place]tarian Owen catheters were used to cannulate both right and left coronary ostia and a six [place] pigtail catheter was used for ventriculography. A six [place]tarian multipurpose guide was used to evaluate the saphenous graft to the RCA. No complications. Hemodynamics: Aortic blood pressure was 110/70. End-diastolic pressure was 20. There was no gradient across the aortic valve on pullback. Coronary anatomy: The RCA is 100% occluded in its mid section. Left main is a medium vessel that is normal. The circumflex has moderate plaquing in his long and the circumflex proper reaches the inferior lateral wall left ventricle without critical lesions. There is moderate plaquing throughout its proximal section. The 1st obtuse marginal branch is 100% occluded. The left anterior descending coronary artery is a large vessel it has been stented proximally. It is patent. The mid and distal segments are free of significant disease. The 1st diagonal branches rather small and not amenable to angioplasty. Saphenous graft to the PDA with retrograde filling of the posterolateral branches normal. The anatomy at the level of the posterolateral and PDA is within normal limits. Good retrograde flow to the posterolateral and good antegrade flow from the graft to the distal PDA. The saphenous graft to the marginal branches patent it is normal. The saphenous graft anastomosed and the site of the 1st marginal branch is also showing a good anastomosis. Marginal branch itself is free of significant disease. No retrograde filling to the [place] circumflex given an occlusion at the proximal marginal. There is a 3rd saphenous graft however it is occluded. Its anastomosis target vessel is unknown. Left internal mammary artery was not visualized. Ventriculography in the BRYANT projection shows an EF of 10% Impression: 1. Elevated left ventricular end-diastolic pressure at rest with decreased left ventricular ejection fraction. Three-vessel coronary artery disease as delineated above. No need for revascularization. Recommendations: Continue medical therapy. Risk factor modification to contin ue Condition Guarded Disposition Still a Patient Date of Service: October 09, 2024 Billing Provider: MERARI MIJARES Sr., MD Cardiology Common Codes: 17535-TNSXXES INP/OBS CARE (High) Cardiology Procedure Codes: 48553-QIK NONCORN ART BYPASS GTF, 84163-MCXU ADD CORONARY BRANCH, 80389-SFPP HEART CATH W/INTRA INJ MERARI MIJARES Sr., MD October 09, 2024 18:12
--- NOTE | 2024-10-09 18:51 | ECG ---
[facility] Test Date: 2024-10-09 Test Time: 16:17:15 Pat Name: MONICA JAMES Department: ED Room: 0290T Gender: F Orthopedics Pediatric Physician: chema : [id number] Requested By: WILMER MOREAU Order Number: [id number] Reading MD: Adair iMjares Measurements Intervals [place] Rate: 73 P: 176 VA: 121 QRS: 216 QRSD: 199 T: 52 QT: 509 QTc: 561 Interpretive Statements Ventricular-paced rhythm No further analysis attempted due to paced rhythm Electronically Signed On 10-10-2024 21:04:02 PDT by Adair Mijares Please click the below link to view image of tracing.
[2024-10-09] MEDS: MORPHINE SULFATE INJ 2 MG/ml SYRG IV PRN (21:59)
[2024-10-09] MEDS: ATORVASTATIN 20 MG TAB PO SCH (22:41)
[2024-10-09] MEDS: SACUBITRIL-VALSARTAN 24mg/26mg TAB PO SCH (22:41)
[2024-10-09] MEDS: RANOLAZINE ER 500 MG TAB PO SCH (22:42)
[2024-10-10] VITALS (8 sets, daily range): BP systolic 107–129; BP diastolic 47–58; PULSE 61–72; RESP 16–17; TEMP 97.6–98.4; O2SAT 94–99
[2024-10-10 04:31] LABS: Urine Bacteria None Seen /hpf (None Seen)
[2024-10-10 04:48] LABS: Urine Blood Negative /uL (Negative); Urine Clarity Clear (Clear); Urine Color Yellow (Yellow); Urine Protein, UAD TRACE (Negative); Urine Squamous Epithelial Cell FEW /hpf (<5); Urine Urobilinogen Normal (Negative); Urine WBC 10 /HPF (0-5)
[2024-10-10 04:51] LABS: Urine Specific Gravity > 1.050 (1.001-1.035)
[2024-10-10] MEDS: ONDANSETRON HCL 4 MG/2 ML VIAL IV PRN (06:30)
[2024-10-10] MEDS: METOPROLOL SUCCINATE XL 50 MG TAB PO SCH (10:00)
[2024-10-10] MEDS: CLOPIDOGREL BISULFATE 75 MG TAB PO SCH (10:46)
[2024-10-10] MEDS: ASPirin 81 mg TAB PO SCH (10:46)
[2024-10-10] MEDS: EZETIMIBE 10 MG TAB PO SCH (10:46)
[2024-10-10] MEDS: SPIRONOLACTONE 25 MG TAB PO SCH (10:46)
[2024-10-10] MEDS: MORPHINE SULFATE 4 MG/ML SYR/VIAL IV PRN (16:38)
--- NOTE | 2024-10-10 16:58 | DVHINCON2 ---
Date of service: October 10, 2024 History of Present Illness HPI Patient is a 79-year-old female who presented to the hospital with chest discomfort. On presentation, there was a question about STEMI on EKG and the patient had cardiac catheterization by other overlock collar setter (Dr Mijares). There was no indication for any intervention. She is known to me from prior visits on outside. Denies any chest pain at the time of evaluation. High sensitive troponin has been negative. Home Meds Active Scripts Ciprofloxacin Hcl (Cipro) 500 Mg Tab, 1 TAB PO BID, #20 TAB Prov:JANE VEGA MD 09/29/24 Oxycodone W/ Acetaminophen (Percocet 5/325MG) 1 Tab Tb, 1 TAB PO QID, #30 TAB Prov:JANE VEGA MD 09/29/24 Phenazopyridine HCl (Eq Urinary Pain Relief Ma) 99.5 Mg Tab, 99.5 MG PO TID for 10 Days, #30 TAB Prov:PHILL LEAL RESDIENT 09/23/24 Cephalexin Monohydrate (Cephalexin) 500 Mg Cap, 1 CAP PO BID for 4 Days, #10 CAP Prov:PHILL LEAL RESDIENT 09/23/24 Metoprolol Succinate (Metoprolol Succinate Er) 25 Mg Tab, 1 TAB PO DAILY for 30 Days, #30 TAB 5 Refills Prov:AXEL CARABALLO RESIDENT 09/06/24 Spironolactone (Aldactone) 25 Mg Tab, 25 MG PO DAILY for 30 Days, #30 TAB Prov:BHARAT MICHELLE RESIDENT 07/22/24 Oxybutynin Chloride (Oxybutynin Chloride) 5 Mg Tab, 5 MG PO Q8HR for 30 Days, #90 TAB Prov:BHARAT MICHELLE 07/22/24 Atorvastatin Calcium (ATORVASTATIN CALCIUM) 20 Mg Tab, 40 MG PO HS for 30 Days, #60 TAB Prov:BHARAT MICHELLE 07/22/24 Acetaminophen (Acetaminophen) 325 Mg Tab, 650 MG PO TID for 10 Days, #60 TAB Prov:BHARAT MICHELLE RESIDENT 07/22/24 Duloxetine Hydrochloride (Duloxetine Hydrochloride) 30 Mg Cap, 30 MG PO DAILY for 30 Days, #30 CAP Prov:WINSOME GOMEZ MD 04/29/24 Clopidogrel Bisulfate (CLOPIDOGREL) 75 Mg Tab, 75 MG PO DAILY for 30 Days, #30 TAB 5 Refills Prov:YENNY FRAIRE MD 11/26/23 Ranolazine (Ranolazine ER) 500 Mg Tab, 500 MG PO BID for 30 Days, #60 TAB 2 Refills Prov:BLAISE RUSSU RESIDENT 09/16/23 Reported Medications Polyethylene Glycol 3350 (Miralax) 17 Gm Pow, 17 GM PO DAILY PRN for FOR CONSTIPATION for 30 Days, #30 01/28/24 Ipratropium-Albuterol (Ipratropium [place]/Albut) 1 Yuli Yuli, 1 VIAL NEB Q6HPRN PRN for SHORTNESS OF BREATH for 13 Days, #180 09/05/23 Fluticasone-Salmeterol (Fluticasone Propionate/SA 250-50 Mcg/Dose) 1 Aer Aer, 1 PUFF INH BID for 30 Days, #60 09/05/23 Albuterol Sulfate (Albuterol Sulfate Hfa) 108 Mcg/Act Aer, 2 PUFF INH Q4HPRN PRN for dyspnea for 17 Days, #18 09/05/23 Cholecalciferol (VITAMIN D3) 2,000 Unit Tab, 1 TAB PO BID for 30 Days, #60 08/28/23 Multiple Vitamin (Tab-A-Radha) Tab, 1 TAB PO DAILY for 30 Days, #30 08/28/23 Aspirin (Aspir-Low) 81 Mg Tab, 1 TAB PO DAILY for 30 Days, #30 08/28/23 Ascorbic Acid (VITAMIN C TABLET) 500 Mg Tb, 1 TAB PO BID for 30 Days, #60 05/18/23 Pantoprazole Sodium Sesquihydr (Pantoprazole Sodium) 40 Mg Tab, 1 TAB PO DAILY 05/18/23 Fluoxetine HCl (Pmdd) (Fluoxetine HCl) 20 Mg Tab, 20 MG PO DAILY, TAB 05/30/20 Past Medical History Others Past medical history includes hypertension, hyperlipidemia, coronary artery disease, history of CABG (2010), systolic heart failure, ischemic cardiomyopathy, gout, kidney stone, s/p ESWL, frequent UTI, history of CVA, Diverticulosis, COPD, s/p COVID, depression, Anxiety, GERD, history of appendec carlos/hysterectomy/tonsillectomy, and history of BiV ICD (Biotronik) implantation. She is chronically wheelchair-bound. She was previously in hospice for heart failure. She is allergic to codeine. She quit smoking years ago. She is DNR. She also has diagnosis of parkinsonism. Patient Family History: Arthritis Cardiovascular disease G8 MOTHER, Onset:Unknown Cerebrovascular accident (CVA) G8 FATHER Coronary artery disease G8 MOTHER, Onset:Unknown FH: diabetes mellitus G8 MOTHER, Onset:Unknown FH: heart disease G8 MOTHER, Onset:Unknown FH: hypertension G8 MOTHER, Onset:Unknown FH: lupus 19 CHILD FH: myocardial infarction G8 MOTHER, Onset:Unknown Family history: Cardiovascular disease G8 MOTHER, Onset:Unknown G8 FATHER, Onset:Unknown Glaucoma G8 MOTHER, Onset:Unknown Smoker: No Hx (Negative) Alocohol: None Lives with: Detention Review of Systems All Other Systems Ten point review of system was performed. Relevant findings as per above and as per HPI. Otherwise negative H&P Exam Vital Signs Vital Signs Date Time Temp Pulse Resp B/P (MAP) Pulse Ox O2 Delivery O2 Flow Rate FiO2 10/10/24 16:38 72 18 111/58 10/10/24 13:00 98.4 99 98.4 10/10/24 08:15 Nasal Cannula* 2 28 General Appeara: Well developed Head Exam: Normal inspection Eye Exam: bilateral eye PERRL Mouth: Normal Inspection Pulmonary/Respiratory: Lungs clear Cardiovascular/Chest: Regular rate, Systolic murmur Neuro/Mental St: Alert, Oriented Appearance: Appropriate appearance Eye contact/ Speech: Cooperative Labs/Xrays Labs Test 10/10/24 04:20 10/09/24 14:55 Range/Units Urine Color Yellow Yellow Urine Clarity Clear Clear Urine pH 6.0 5.0-9.0 Urine Specific [place] > 1.050 H 1.001-1.035 Urine Protein Trace H Negative Urine Ketones Negative Negative Urine Blood Negative Negative /uL Urine Nitrite Negative Negative Urine Bilirubin Negative Negative Urine Urobilinogen Normal Negative mg/dL Urine Leukocyte Esterase Negative Negative /uL Urine RBC 3 0 - 4 /hpf Urine Microscopic WBC 10 H 0-5 /HPF Urine Squamous Epithelial Cells Few <5 /hpf Urine Bacteria None seen None Seen /hpf Urine Glucose Normal Normal mg/dL White Blood Count 7.7 4.4-10.8 10^3/uL Red Blood Count 4.37 4.0-5.20 10^6/uL Hemoglobin 12.9 12.2-16.2 g/dL Hematocrit 38.6 36.0-46.0 % Mean Corpuscular Volume 88.3 80.0-100.0 fL Mean Corpuscular Hemoglobin 29.5 28.0-32.0 pg Mean Corpuscular Hemoglobin Concent 33.5 32.0-36.0 g/dL Red Cell Distribution Width 16.2 H 11.8-14.3 % Platelet Count 385 140-450 10^3/uL Mean Platelet Volume 7.9 6.9-10.8 fL Neutrophils (%) (Auto) 54.6 37.0-80.0 % Lymphocytes (%) (Auto) 25.0 10.0-50.0 % Monocytes (%) (Auto) 14.4 H 0.0-12.0 % Eosinophils (%) (Auto) 4.6 0.0-7.0 % Basophils (%) (Auto) 1.4 0.0-2.0 % Neutrophils # (Auto) 4.2 1.6-8.6 10 ^3/uL Lymphocytes # (Auto) 1.9 0.4-5.4 10 ^3/uL Monocytes # (Auto) 1.1 0-1.3 10 ^3/uL Eosinophils # (Auto) 0.4 0-0.8 10 ^3/uL Basophils # (Auto) 0.1 0-0.2 10 ^3/uL Nucleated Red Blood Cells 0.2 % Prothrombin Time 10.8 9.3-11.8 sec Prothrombin Time INR 1.02 0.9-1.15 Activated Partial Thromboplast Time 20.9 L 24.5-34.5 SEC Sodium Level 139 136-145 mmol/L Potassium Level 4.5 3.5-5.1 mmol/L Chloride Level 110 H 98-107 mmol/L Carbon Dioxide Level 22 20-31 mmol/L Anion Gap 7 5-15 Blood Urea Nitrogen 21 9-23 mg/dL Creatinine 1.20 H 0.550-1.02 mg/dL Glomerular Filtration Rate Calc 46 >90 mL/min BUN/Creatinine Ratio 17.5 10.0-20.0 Serum Glucose 102 74-106 mg/dL Calcium Level 9.6 8.7-10.4 mg/dL Total Bilirubin 0.4 0.2-1.0 mg/dL Aspartate Amino Transferase (AST) 33 13-40 U/L Alanine Aminotransferase (ALT) 14 7-40 U/L Alkaline Phosphatase 68 46-116 U/L Troponin I High Sensitivity 21 </=34 ng/L B-Type Natriuretic Peptide 516.12 0-100 pg/mL Total Protein 6.5 5.7-8.2 g/dL Albumin 4.2 3.2-4.8 g/dL Assessment/Plan Plan Patient is a 79-year-old female who presented to the hospital with chest discomfort. On presentation, there was a question about STEMI on EKG and the patient had cardiac catheterization by other overlock collar setter (Dr Mijares). There was no indication for any intervention. She is known to me from prior visits on outside. Denies any chest pain at the time of evaluation. High sensitive troponin has been negative. Lying comfortably flat in bed, no JVD, pink and wet mucosa, no carotid bruit, no goiter, lungs: Not using accessory muscles of breathing, lungs reveal scattered rhonchi, cardiac: Regular regular, no thrill/gallop, 2+murmur in apex, abdomen: Soft, no hepatomegaly, some suprapubic and upper epigastric tenderness is positive, no rebound tenderness, extremities: No edema, dorsalis pedis is 2+ bilateral. Right femoral/groin area with no hematoma. Past medical history includes hypertension, hyperlipidemia, coronary artery disease, history of CABG (2010), systolic heart failure, ischemic cardiomyopathy, gout, kidney stone, s/p ESWL, frequent UTI, history of CVA, Diverticulosis, COPD, s/p COVID, depression, Anxiety, GERD, history of appendectomy/hysterectomy/tonsillectomy, and history of BiV ICD (Biotronik) implantation. She is chronically wheelchair-bound. She was previously in hospice for heart failure. She is allergic to codeine. She quit smoking years ago. She is DNR. She also has diagnosis of parkinsonism. Cardiac catheterization of August 26, 2024 (performed in [facility]) revealed triple-vessel [facility] coronary artery disease. WASTEWATER PROCESS ENGINEER of obtuse marginal. WASTEWATER PROCESS ENGINEER of RCA. Lad with 75% lesion and status post drug-eluting stent deployment. It is of note that there is patent SVG to obtuse marginal and also patent SVG to RCA. Cardiac catheterization of September 2020 revealed ejection fraction of 20%, WASTEWATER PROCESS ENGINEER of SVG to diagonal, patent TAN, patent SVG to OM, patent SVG to PDA and WASTEWATER PROCESS ENGINEER of RCA. Echocardiogram of September 04, 2024 reported: Dilated left ventricle. LVEF of 10%. Increased EDP. Pacing wire in right-sided chambers. Mild mitral regurgitation. As there was no good tricuspid regurgitation jet, right ventricular systolic pressure could not be estimated Echocardiogram of August 25, 2024 (performed in [facility]) for PE old ejection fraction of 20% Echocardiogram of reported: LV EF of 15-20%, biatrial enlargement, pacing wire in the right-sided chambers. Echocardiogram of November 22, 2023 revealed: Dilated left ventricle, LVEF of 10%, pacing wire and right-sided chambers, mild mitral regurgitation. Echocardiogram of August 28, 2023 revealed: Dilated left ventricle with significantly reduced systolic function. LVEF of 20%. Elevated LVEDP, dilated four chambers. Pacing wire was seen in right-sided chamber. [id number] MR. Echocardiogram of January 03, 2023 revealed ejection fraction of 20 to 25% and mi ld left ventricular enlargement Echocardiogram of March 25, 2023 (performed in the office) revealed four- chamber dilatation, LVEF of 20 to 25%, mild to moderate MR, mild TR, trace pulmonary valve insufficiency and right ventricular systolic pressure of 35 mmHg Echocardiogram of March 21, 2022 revealed ejection fraction of around 20%, mild MR/TR Echocardiogram of February 17, 2021 revealed dilated LV, LVEF around 25%, severe diffuse hypokinesis, increased LVEDP, dilated left and right atria, mild to moderate MR, mild TR. Echocardiogram of December 30, 2020 reported ejection fraction less than 20% and dilated left atrium. Echocardiogram of August 2020 revealed ejection fraction less than 25%, right atrial enlargement, left atrial enlargement and moderate MR. Creatinine: 1.2 Potassium: 4.5 BNP: 516.12 Troponin (high sensitive): 21 Chest x-ray reported: EKG reviewed: Revealed sinus rhythm with paced ventricular rhythm Cardiac catheterization revealed: Significantly reduced systolic function. LAD with patent stent. WASTEWATER PROCESS ENGINEER of RCA and obtuse marginal. Patent SVG to obtuse marginal and patent SVG to RCA. Patient is a 79-year-old female presented with chest pain. There was question about STEMI and the patient had cardiac catheterization which revealed no indication for any intervention. It did reveal previously known findings. Patient is on dual antiplatelet therapy for previously implanted stent. To be kept on aspirin/Plavix. Does have baseline history of ischemic/systolic heart failure which at this point is considered compensated. She is DNR. Does complain of dysuria and has history of UTIs Chest pain, atypical Bronchitis/URI COPD exacerbation Ischemic cardiomyopathy, history of Coronary artery disease, status post CABG Status post PCI Diverticular disease Renal calculi Emphysema Kidney stone, history of Coronary artery disease, SP CABG GERD Hypertension Hyperlipidemia Gout Constipation UTI Cardiac suggestion for management: Manage on telemetry Follow-up electrolytes and kidney function tests and correct abnormalities Continue Aspirin/Plavix Continue Toprol-XL/Entresto/Aldactone/Ranolazine/Atorvastatin Evaluation and management of UTI/dysuria as per primary Further evaluation and management depends on the above and clinical course A total of 75 minutes was spent reviewing the patient record, examining the patient, making a diagnostic and therapeutic plan, discussing this plan with medical personnel, following up on diagnostic studies and following the patient for clinical stability excluding any and all procedures. At least 50% of this time was spent in direct, [id number] contact. Thank you for allowing me to participate in this patient's care. Further recommendations will depend on patient's clinical course. Please do not hesitate to contact me if you have any questions or concerns. This medical document was created using electronic medical record system with [employer] computerized dictation system. Although this document has been carefully reviewed, there may still be some phonetic and typographical errors. These areas are purely typographical due to the imperfection of the software programs, and do not reflect any compromise in the patient's medical care. Plan discussed with: Patient, Other (nurse) RODRIGUEZ LEBRON MD October 10, 2024 16:58
--- NOTE | 2024-10-10 18:26 | DVHHP2 ---
History of Present Illness Reason for Visit: STEMI History of Present Illness 79-year-old female with a history of coronary artery disease status post CABG presented to the emergency room with chest pain She was diagnosed with a STEMI Cardiology recommended an angiogram, was done by Dr. Mijares, showed three-vessel coronary artery disease, stable with cardiomyopathy, medical management was recommended She has cardiomyopathy ejection fraction 10% She has a CABG in the past She had PCI of the LAD She has a biventricular ICD Hypertension Dyslipidemia GERD Cardiovascular: CAD, CHF, HTN, hyperipidemia Pulmonary: COPD GI: Constipation, GERD Rheumatologic: Gout Review of Systems Cardiovascular: Chest Pain Allergies: Coded Allergies: Ceftriaxone (Verified Allergy, Intermediate, generalized rash, 11/08/22) DIRECTOR SOFTWARE DEVELOPMENTCARLENE MEJIA Hydrocodone (Verified Allergy, Unknown, rash, 05/18/23) tylenol is okay per patient Medications Current Medications Medications Dose Ordered Sig/Asha Route Start Time Stop Time Status Last Admin Dose Admin Spironolactone 25 mg DAILY PO 10/10/24 10:00 10/10/24 10:46 25 MG Ranolazine 500 mg BID PO 10/09/24 22:00 10/10/24 10:47 500 MG Aspirin 81 mg DAILY PO 10/10/24 10:00 10/10/24 10:46 81 MG Clopidogrel Bisulfate 75 mg DAILY PO 10/10/24 10:00 10/10/24 10:46 75 MG Metoprolol Succinate 25 mg DAILY PO 10/10/24 10:00 Atorvastatin Calcium 40 mg HS PO 10/09/24 22:00 10/09/24 22:41 40 MG EZETIMIBE 10 mg DAILY PO 10/10/24 10:00 10/10/24 10:46 10 MG Sacubitril/ Valsartan 1 tab BID PO 10/09/24 22:00 10/09/24 22:41 1 TAB Nitroglycerin 0.4 mg Q5MINP PRN SL 10/09/24 18:00 Morphine Sulfate 2 mg Q30M PRN IV 10/09/24 18:00 Ondansetron HCl 4 mg Q4HPRN PRN IV 10/10/24 04:45 10/10/24 14:41 4 MG Morphine Sulfate 4 mg Q4HPRN PRN IV 10/10/24 11:30 10/10/24 16:38 4 MG Oxycodone/ Acetaminophen 2 tab Q4HP PRN PO 10/10/24 15:45 Exam Vital Signs Vital Signs Date Time Temp Pulse Resp B/P (MAP) Pulse Ox O2 Delivery O2 Flow Rate FiO2 10/10/24 17:00 98.2 70 17 111/58 (75) 94 98.2 10/10/24 08:15 Nasal Cannula* 2 28 General Appearance: Alert, Oriented X3, Cooperative, No acute distress Respiratory: Clear to auscultation, Normal air movement Cardiovascular: Regular rate, Normal S1, Normal S2, No murmurs Abdominal: Normal bowel sounds, Soft, No tenderness Extremities: No edema Labs/Xrays Labs Test 10/10/24 04:20 10/09/24 14:55 Range/Units Urine Color Yellow Yellow Urine Clarity Clear Clear Urine pH 6.0 5.0-9.0 Urine Specific [place] > 1.050 H 1.001-1.035 Urine Protein Trace H Negative Urine Ketones Negative Negative Urine Blood Negative Negative /uL Urine Nitrite Negative Negative Urine Bilirubin Negative Negative Urine Urobilinogen Normal Negative mg/dL Urine Leukocyte Esterase Negative Negative /uL Urine RBC 3 0 - 4 /hpf Urine Microscopic WBC 10 H 0-5 /HPF Urine Squamous Epithelial Cells Few <5 /hpf Urine Bacteria None seen None Seen /hpf Urine Glucose Normal Normal mg/dL White Blood Count 7.7 4.4-10.8 10^3/uL Red Blood Count 4.37 4.0-5.20 10^6/uL Hemoglobin 12.9 12.2-16.2 g/dL Hematocrit 38.6 36.0-46.0 % Mean Corpuscular Volume 88.3 80.0-100.0 fL Mean Corpuscular Hemoglobin 29.5 28.0-32.0 pg Mean Corpuscular Hemoglobin Concent 33.5 32.0-36.0 g/dL Red Cell Distribution Width 16.2 H 11.8-14.3 % Platelet Count 385 140-450 10^3/uL Mean Platelet Volume 7.9 6.9-10.8 fL Neutrophils (%) (Auto) 54.6 37.0-80.0 % Lymphocytes (%) (Auto) 25.0 10.0-50.0 % Monocytes (%) (Auto) 14.4 H 0.0-12.0 % Eosinophils (%) (Auto) 4.6 0.0-7.0 % Basophils (%) (Auto) 1.4 0.0-2.0 % Neutrophils # (Auto) 4.2 1.6-8.6 10 ^3/uL Lymphocytes # (Auto) 1.9 0.4-5.4 10 ^3/uL Monocytes # (Auto) 1.1 0-1.3 10 ^3/uL Eosinophils # (Auto) 0.4 0-0.8 10 ^3/uL Basophils # (Auto) 0.1 0-0.2 10 ^3/uL Nucleated Red Blood Cells 0.2 % Prothrombin Time 10.8 9.3-11.8 sec Prothrombin Time INR 1.02 0.9-1.15 Activated Partial Thromboplast Time 20.9 L 24.5-34.5 SEC Sodium Level 139 136-145 mmol/L Potassium Level 4.5 3.5-5.1 mmol/L Chloride Level 110 H 98-107 mmol/L Carbon Dioxide Level 22 20-31 mmol/L Anion Gap 7 5-15 Blood Urea Nitrogen 21 9-23 mg/dL Creatinine 1.20 H 0.550-1.02 mg/dL Glomerular Filtration Rate Calc 46 >90 mL/min BUN/Creatinine Ratio 17.5 10.0-20.0 Serum Glucose 102 74-106 mg/dL Calcium Level 9.6 8.7-10.4 mg/dL Total Bilirubin 0.4 0.2-1.0 mg/dL Aspartate Amino Transferase (AST) 33 13-40 U/L Alanine Aminotransferase (ALT) 14 7-40 U/L Alkaline Phosphatase 68 46-116 U/L Troponin I High Sensitivity 21 </=34 ng/L B-Type Natriuretic Peptide 516.12 0-100 pg/mL Total Protein 6.5 5.7-8.2 g/dL Albumin 4.2 3.2-4.8 g/dL Assessment/Plan Assessment/Plan Acute STEMI Ischemic cardiomyopathy EF 10% Hypertension Mixed hyperlipidemia GERD History of biventricular ICD Severe coronary artery disease status post CABG and PCI Acute kidney injury due to vasomotor nephropathy COPD Chronic respiratory failure on home O2 Diverticulosis History of renal calculi Gout Constipation Plan Aspirin Lipitor Plavix Zetia Metoprolol Ranexa Entresto Aldactone Cardiology consult Dr. Mercado Monitor closely Full code Advance directives discussed with the patient for 20 minutes Plan discussed with: Patient Date of Service: October 10, 2024 Billing Provider: YENNY FRAIRE MD Common Visit Codes: [id number] INP/OBS CARE (HIGH) Secondary Visit Codes: [id number] CARE PLAN 30 MINUTES YENNY FRAIRE MD October 10, 2024 18:26
--- NOTE | 2024-10-10 21:36 | DVHPN2 ---
Subjective feels better Reviewed: Care Plan, Labs, Medications, Previous Orders, Radiology, Other (cardio) Changes from previous H/P or p: No Changes Cardiovascular: Chest Pain Objective Vitals Vital Signs Date Time Temp Pulse Resp B/P (MAP) Pulse Ox O2 Delivery O2 Flow Rate FiO2 10/10/24 20:47 61 18 126/51 10/10/24 17:00 98.2 94 98.2 10/10/24 08:15 Nasal Cannula* 2 28 Intake/Output Intake and Output 10/10/24 07:00 Intake Total 280 ml Balance 280 ml Intake Oral 280 ml # Voids 1 General Appearance: Alert, Oriented X3, Cooperative, No acute distress HEENT: Atraumatic Lungs: Clear to auscultation, Other (few crackles) Cardiovascular: Regular rate Abdomen: Normal bowel sounds, Soft, Other (minimal usual tenderness) Extremities: Other (mild edema BLE) Medications Current Medications Medications Dose Ordered Sig/Asha Route Start Time Stop Time Status Last Admin Dose Admin Spironolactone 25 mg DAILY PO 10/10/24 10:00 10/10/24 10:46 25 MG Ranolazine 500 mg BID PO 10/09/24 22:00 10/10/24 10:47 500 MG Aspirin 81 mg DAILY PO 10/10/24 10:00 10/10/24 10:46 81 MG Clopidogrel Bisulfate 75 mg DAILY PO 10/10/24 10:00 10/10/24 10:46 75 MG Metoprolol Succinate 25 mg DAILY PO 10/10/24 10:00 Atorvastatin Calcium 40 mg HS PO 10/09/24 22:00 10/09/24 22:41 40 MG EZETIMIBE 10 mg DAILY PO 10/10/24 10:00 10/10/24 10:46 10 MG Sacubitril/ Valsartan 1 tab BID PO 10/09/24 22:00 10/09/24 22:41 1 TAB Nitroglycerin 0.4 mg Q5MINP PRN SL 10/09/24 18:00 Morphine Sulfate 2 mg Q30M PRN IV 10/09/24 18:00 Ondansetron HCl 4 mg Q4HPRN PRN IV 10/10/24 04:45 10/10/24 20:31 4 MG Morphine Sulfate 4 mg Q4HPRN PRN IV 10/10/24 11:30 10/10/24 20:47 4 MG Oxycodone/ Acetaminophen 2 tab Q4HP PRN PO 10/10/24 15:45 Laboratory Results Laboratory Tests 10/09/24 14:55 Urinalysis Test 10/10/24 04:20 Urine Color Yellow (Yellow) Urine Clarity Clear (Clear) Urine pH 6.0 (5.0-9.0) Urine Specific [place] > 1.050 (1.001-1.035) Urine Protein Trace (Negative) H Urine Ketones Negative (Negative) Urine Blood Negative /uL (Negative) Urine Nitrite Negative (Negative) Urine Bilirubin Negative (Negative) Urine Urobilinogen Normal mg/dL (Negative) Urine Leukocyte Esterase Negative /uL (Negative) Urine RBC 3 /hpf (0 - 4) Urine Microscopic WBC 10 /HPF (0-5) H Urine Squamous Epithelial Cells Few /hpf (<5) Urine Bacteria None seen /hpf (None Seen) Urine Glucose Normal mg/dL (Normal) Assessment/Plan Assessment/Plan STEMI/CAD/Hx of CABG S/P CARDIAC ANGIOGRAM THIS ADMISSION WITHOUT INTERVENTION CHRONIC PAIN SYNDROME CHF/ HFrEF - 10% COPD HLD GERD GOUT HTN CHRONIC ABD PAIN PLAN CONTINUE CURRENT PLAN PER CARDIO. PAIN CONTROL Plan discussed with: Patient My Orders Orders - BEL BURNETT MD Procedure Category Date Status Time Morphine Sulfate PHA 10/10/24 In Process Injection 11:30 Oxycodone W/ Acet PHA 10/10/24 In Process 5/325mg Tab (Percocet 15:45 Date of Service: October 10, 2024 Billing Provider: BEL BURNETT MD Common Visit Codes: [id number] INP/OBS CARE(HIGH) BEL BURNETT MD October 10, 2024 21:36
[2024-10-10] MEDS ORDERED: CIPROFLOXACIN HYDROCHLORIDE 250 MG TAB PO SCH (22:00)
[2024-10-11] VITALS (9 sets, daily range): BP systolic 81–108; BP diastolic 39–62; PULSE 56–70; RESP 16–17; TEMP 97.3–98; O2SAT 92–96
[2024-10-11 06:47] LABS: Alanine Aminotransferase 10 U/L (7-40); Alkaline Phosphatase 65 U/L (46-116); Anion Gap 6 (5-15); Aspartate Aminotransferase 18 U/L (13-40); BUN/Creatinine Ratio 21.4 (10.0-20.0); Bilirubin, Total 0.4 mg/dL (0.2-1.0); Blood Urea Nitrogen 22 mg/dL (9-23); Calcium 9.8 mg/dL (8.7-10.4); Carbon Dioxide 27 mmol/L (20-31); Glucose 96 mg/dL (74-106); Potassium 4.2 mmol/L (3.5-5.1); Sodium 140 mmol/L (136-145); Total Protein 5.8 g/dL (5.7-8.2)
[2024-10-11 06:51] LABS: Chloride 107 mmol/L (98-107)
--- NOTE | 2024-10-11 07:32 | DVHPN2 ---
Progress Note - Dictate Date Seen: October 11, 2024 Medical Necessity Reason Pt with a Central, PICC or Fol: No vital signs Vital Sign Date Time Temp Pulse Resp B/P (MAP) Pulse Ox O2 Delivery O2 Flow Rate FiO2 10/11/24 05:38 68 16 103/62 10/11/24 05:00 98.0 94 98.0 10/10/24 20:00 Nasal Cannula* 2 28 Total Intake and Output 10/10/24 10/10/24 10/11/24 15:00 23:00 07:00 Intake Total 905 ml 240 ml Output Total 100 ml Balance 905 ml 140 ml medications Current Medications Medications Dose Ordered Sig/Asha Route Start Time Stop Time Status Last Admin Dose Admin Spironolactone 25 mg DAILY PO 10/10/24 10:00 10/10/24 10:46 25 MG Ranolazine 500 mg BID PO 10/09/24 22:00 10/10/24 22:02 500 MG Aspirin 81 mg DAILY PO 10/10/24 10:00 10/10/24 10:46 81 MG Clopidogrel Bisulfate 75 mg DAILY PO 10/10/24 10:00 10/10/24 10:46 75 MG Metoprolol Succinate 25 mg DAILY PO 10/10/24 10:00 Atorvastatin Calcium 40 mg HS PO 10/09/24 22:00 10/10/24 22:03 40 MG EZETIMIBE 10 mg DAILY PO 10/10/24 10:00 10/10/24 10:46 10 MG Sacubitril/ Valsartan 1 tab BID PO 10/09/24 22:00 10/10/24 22:02 1 TAB Nitroglycerin 0.4 mg Q5MINP PRN SL 10/09/24 18:00 Morphine Sulfate 2 mg Q30M PRN IV 10/09/24 18:00 Ondansetron HCl 4 mg Q4HPRN PRN IV 10/10/24 04:45 10/11/24 04:59 4 MG Morphine Sulfate 4 mg Q4HPRN PRN IV 10/10/24 11:30 10/11/24 05:08 4 MG Oxycodone/ Acetaminophen 2 tab Q4HP PRN PO 10/10/24 15:45 Ciprofloxacin 250 mg Q12HR PO 10/10/24 22:00 UNV laboratory and microbiology Laboratory Tests 10/11/24 06:02 5/16/25 14:55 Test 10/11/24 06:02 Range/Units Serum Glucose 96 74-106 mg/dL Assessment/Plan Patient is a 79-year-old female who presented to the hospital with chest discomfort. On presentation, there was a question about STEMI on EKG and the patient had cardiac catheterization by other account specialist (Dr Mijares). There was no indication for any intervention. She is known to me from prior visits on outside. Denies any chest pain at the time of evaluation. High sensitive troponin has been negative. Lying comfortably flat in bed, no JVD, pink and wet mucosa, no carotid bruit, no goiter, lungs: Not using accessory muscles of breathing, lungs reveal scattered rhonchi, cardiac: Regular regular, no thrill/gallop, 2+murmur in apex, abdomen: Soft, no hepatomegaly, some suprapubic and upper epigastric tenderness is positive, no rebound tenderness, extremities: No edema, dorsalis pedis is 2+ bilateral. Right femoral/groin area with no hematoma. Past medical history includes hypertension, hyperlipidemia, coronary artery disease, history of CABG (2010), systolic heart failure, ischemic cardiomyopathy, gout, kidney stone, s/p ESWL, frequent UTI, history of CVA, Diverticulosis, COPD, s/p COVID, depression, Anxiety, GERD, history of appendectomy/hysterectomy/tonsillectomy, and history of BiV ICD (Biotronik) implantation. She is chronically wheelchair-bound. She was previously in hospice for heart failure. She is allergic to codeine. She quit smoking years ago. She is DNR. She also has diagnosis of parkinsonism. Cardiac catheterization of August 26, 2024 (performed in [facility]) revealed triple-vessel [place] coronary artery disease. PIER HAND of obtuse marginal. PIER HAND of RCA. Lad with 75% lesion and status post drug-eluting stent deployment. It is of note that there is patent SVG to obtuse marginal and also patent SVG to RCA. Cardiac catheterization of September 2020 revealed ejection fraction of 20%, PIER HAND of SVG to diagonal, patent TAN, patent SVG to OM, patent SVG to PDA and PIER HAND of RCA. Echocardiogram of September 04, 2024 reported: Dilated left ventricle. LVEF of 10%. Increased EDP. Pacing wire in right-sided chambers. Mild mitral regurgitation. As there was no good tricuspid regurgitation jet, right ventricular systolic pressure could not be estimated Echocardiogram of August 25, 2024 (performed in [facility]) for PE old ejection fraction of 20% Echocardiogram of reported: LV EF of 15-20%, biatrial enlargement, pacing wire in the right-sided chambers. Echocardiogram of November 22, 2023 revealed: Dilated left ventricle, LVEF of 10%, pacing wire and right-sided chambers, mild mitral regurgitation. Echocardiogram of August 28, 2023 revealed: Dilated left ventricle with significantly reduced systolic function. LVEF of 20%. Elevated LVEDP, dilated four chambers. Pacing wire was seen in right-sided chamber. [id number] MR. Echocardiogram of January 03, 2023 revealed ejection fraction of 20 to 25% and mild left ventricular enlargement Echocardiogram of March 25, 2023 (performed in the office) revealed four- chamber dilatation, LVEF of 20 to 25%, mild to moderate MR, mild TR, trace pulmonary valve insufficiency and right ventricular systolic pressure of 35 mmHg Echocardiogram of March 21, 2022 revealed ejection fraction of around 20%, mild MR/TR Echocardiogram of February 17, 2021 revealed dilated LV, LVEF around 25%, severe diffuse hypokinesis, increased LVEDP, dilated left and right atria, mild to moderate MR, mild TR. Echocardiogram of December 30, 2020 reported ejection fraction less than 20% and dilated left atrium. Echocardiogram of August 2020 revealed ejection fraction less than 25%, right atrial enlargement, left atrial enlargement and moderate MR. Creatinine: 1.2 - 1.03 Potassium: 4.5 - 4.2 BNP: 516.12 Troponin (high sensitive): 21 Chest x-ray reported: IMPRESSION: 1. No evidence of acute disease. 2. Mild cardiomegaly with median sternotomy EKG reviewed: Revealed sinus rhythm with paced ventricular rhythm Cardiac catheterization revealed: Significantly reduced systolic function. LAD with patent stent. PIER HAND of RCA and obtuse marginal. Patent SVG to obtuse marginal and patent SVG to RCA. Patient is a 79-year-old female presented with chest pain. There was question about STEMI and the patient had cardiac catheterization which revealed no indication for any intervention. It did reveal previously known findings. Patient is on dual antiplatelet therapy for previously implanted stent. To be kept on aspirin/Plavix. Does have baseline history of ischemic/systolic heart failure which at this point is considered compensated. She is DNR. Does complain of dysuria and has history of UTIs Chest pain, atypical Bronchitis/URI COPD exacerbation Ischemic cardiomyopathy, history of Coronary artery disease, status post CABG Status post PCI Diverticular disease Renal calculi Emphysema Kidney stone, history of Coronary artery disease, SP CABG GERD Hypertension Hyperlipidemia Gout Constipation UTI Cardiac suggestion for management: Manage on telemetry Follow-up electrolytes and kidney function tests and correct abnormalities Continue Aspirin/Plavix Continue Toprol-XL/Entresto/Aldactone/Ranolazine/Atorvastatin Evaluation and management of UTI/dysuria as per primary Cardiac monge, stable Further evaluation and management depends on the above and clinical course A total of 55 minutes was spent reviewing the patient record, examining the patient, making a diagnostic and therapeutic plan, discussing this plan with medical personnel, following up on diagnostic studies and following the patient for clinical stability excluding any and all procedures. At least 50% of this time was spent in direct, [id number] contact. Thank you for allowing me to participate in this patient's care. Further recommendations will depend on patient's clinical course. Please do not hesitate to contact me if you have any questions or concerns. This medical document was created using electronic medical record system with [employer] computerized dictation system. Although this document has been carefully reviewed, there may still be some phonetic and typographical errors. These areas are purely typographical due to the imperfection of the software programs, and do not reflect any compromise in the patient's medical care. Plan discussed with: Patient, Other (nurse) RODRIGUEZ LEBRON MD October 11, 2024 07:32
[2024-10-11] MEDS ORDERED: CIPROFLOXACIN HYDROCHLORIDE 250 MG TAB PO ONE (10:45)
[2024-10-11] MEDS: OXYCODONE W/ ACETAMINOPHEN 5/325MG TABLET PO PRN (11:11)
--- NOTE | 2024-10-11 14:34 | DVHPN2 ---
Subjective She is complaining of bilateral flank pain today No chest pain Reviewed: Care Plan, Labs, Medications, Previous Orders, Radiology, Other (cardio) Changes from previous H/P or p: Changes Cardiovascular: Chest Pain Objective Vitals Vital Signs Date Time Temp Pulse Resp B/P (MAP) Pulse Ox O2 Delivery O2 Flow Rate FiO2 10/11/24 10:00 70 98/53 10/11/24 09:00 97.9 17 94 97.9 10/11/24 08:24 Nasal Cannula* 2 28 Intake/Output Intake and Output 10/11/24 07:00 Intake Total 1145 ml Output Total 100 ml Balance 1045 ml Intake Oral 1145 ml Output Urine Total 100 ml # Voids 4 General Appearance: Alert, Oriented X3, Cooperative, No acute distress HEENT: Atraumatic Lungs: Clear to auscultation, Other (few crackles) Cardiovascular: Regular rate Abdomen: Normal bowel sounds, Soft, Other (minimal usual tenderness) Extremities: Other (mild edema BLE) Medications Current Medications Medications Dose Ordered Sig/Asha Route Start Time Stop Time Status Last Admin Dose Admin Spironolactone 25 mg DAILY PO 10/10/24 10:00 10/10/24 10:46 25 MG Ranolazine 500 mg BID PO 10/09/24 22:00 10/11/24 09:51 500 MG Aspirin 81 mg DAILY PO 10/10/24 10:00 10/11/24 09:50 81 MG Clopidogrel Bisulfate 75 mg DAILY PO 10/10/24 10:00 10/11/24 09:50 75 MG Metoprolol Succinate 25 mg DAILY PO 10/10/24 10:00 Atorvastatin Calcium 40 mg HS PO 10/09/24 22:00 10/10/24 22:03 40 MG EZETIMIBE 10 mg DAILY PO 10/10/24 10:00 10/11/24 09:50 10 MG Sacubitril/ Valsartan 1 tab BID PO 10/09/24 22:00 10/11/24 09:50 1 TAB Nitroglycerin 0.4 mg Q5MINP PRN SL 10/09/24 18:00 Morphine Sulfate 2 mg Q30M PRN IV 10/09/24 18:00 Ondansetron HCl 4 mg Q4HPRN PRN IV 10/10/24 04:45 10/11/24 04:59 4 MG Morphine Sulfate 4 mg Q4HPRN PRN IV 10/10/24 11:30 10/11/24 05:08 4 MG Oxycodone/ Acetaminophen 2 tab Q4HP PRN PO 10/10/24 15:45 10/11/24 11:11 2 TAB Laboratory Results Laboratory Tests 10/09/24 14:55 10/11/24 06:02 Chemistry Test 10/11/24 06:02 Albumin 4.0 g/dL (3.2-4.8) Calcium Level 9.8 mg/dL (8.7-10.4) Total Protein 5.8 g/dL (5.7-8.2) LFT Test 10/11/24 06:02 Alanine Aminotransferase (ALT) 10 U/L (7-40) Alkaline Phosphatase 65 U/L (46-116) Aspartate Amino Transferase (AST) 18 U/L (13-40) Total Bilirubin 0.4 mg/dL (0.2-1.0) Urinalysis Test 10/10/24 04:20 Urine Color Yellow (Yellow) Urine Clarity Clear (Clear) Urine pH 6.0 (5.0-9.0) Urine Specific [place] > 1.050 (1.001-1.035) Urine Protein Trace (Negative) H Urine Ketones Negative (Negative) Urine Blood Negative /uL (Negative) Urine Nitrite Negative (Negative) Urine Bilirubin Negative (Negative) Urine Urobilinogen Normal mg/dL (Negative) Urine Leukocyte Esterase Negative /uL (Negative) Urine RBC 3 /hpf (0 - 4) Urine Microscopic WBC 10 /HPF (0-5) H Urine Squamous Epithelial Cells Few /hpf (<5) Urine Bacteria None seen /hpf (None Seen) Urine Glucose Normal mg/dL (Normal) Assessment/Plan Assessment/Plan Acute STEMI Ischemic cardiomyopathy EF 10% Hypertension Mixed hyperlipidemia GERD History of biventricular ICD Severe coronary artery disease status post CABG and PCI Acute kidney injury due to vasomotor nephropathy COPD Chronic respiratory failure on home O2 Diverticulosis History of renal calculi Gout Constipation Plan Aspirin Lipitor Plavix Zetia Metoprolol Ranexa Entresto Aldactone Cardiology consult Dr. Mercado Monitor closely Full code Advance directives discussed with the patient for 20 minutes 10/11/2024: UTI: Discontinue Cipro and start Macrobid Coronary artery disease with ischemic cardiomyopathy Hypertension COPD Acute kidney injury due to vasomotor nephropathy Chronic respiratory failure on home O2 Continue aspirin, Lipitor, Plavix, metoprolol, Zetia, Ranexa, Aldactone, Entresto Dr. Mercado is following Monitor the patient closely Discharge planning for tomorrow Plan discussed with: Patient My Orders Orders - YENNY FRAIRE MD Procedure Category Date Status Time Code Status CODE 10/10/24 Transmitted 18:24 Date of Service: October 11, 2024 Billing Provider: YENNY FRAIRE MD Common Visit Codes: [id number] INP/OBS CARE(HIGH) YENNY FRAIRE MD October 11, 2024 14:34
[2024-10-11] MEDS: NITROFURANTOIN 100 mg CAP PO ONE (15:31)
[2024-10-11] MEDS: NITROFURANTOIN 100 mg CAP PO SCH (22:03)
[2024-10-12] VITALS (11 sets, daily range): BP systolic 102–147; BP diastolic 45–84; PULSE 54–84; RESP 15–17; TEMP 97.5–99.2; O2SAT 92–98
--- NOTE | 2024-10-12 08:16 | DVHPN2 ---
Progress Note - Dictate Date Seen: October 12, 2024 Medical Necessity Reason Pt with a Central, PICC or Fol: No vital signs Vital Sign Date Time Temp Pulse Resp B/P (MAP) Pulse Ox O2 Delivery O2 Flow Rate FiO2 10/12/24 05:00 97.5 71 15 109/45 (66) 98 97.5 10/11/24 20:00 Nasal Cannula* 2 28 Total Intake and Output 10/11/24 10/11/24 10/12/24 15:00 23:00 07:00 Intake Total 876 ml 345 ml Output Total 800 ml Balance 876 ml -455 ml medications Current Medications Medications Dose Ordered Sig/Asha Route Start Time Stop Time Status Last Admin Dose Admin Spironolactone 25 mg DAILY PO 10/10/24 10:00 10/10/24 10:46 25 MG Ranolazine 500 mg BID PO 10/09/24 22:00 10/11/24 22:04 500 MG Aspirin 81 mg DAILY PO 10/10/24 10:00 10/11/24 09:50 81 MG Clopidogrel Bisulfate 75 mg DAILY PO 10/10/24 10:00 10/11/24 09:50 75 MG Metoprolol Succinate 25 mg DAILY PO 10/10/24 10:00 Atorvastatin Calcium 40 mg HS PO 10/09/24 22:00 10/11/24 22:04 40 MG EZETIMIBE 10 mg DAILY PO 10/10/24 10:00 10/11/24 09:50 10 MG Sacubitril/ Valsartan 1 tab BID PO 10/09/24 22:00 10/11/24 22:04 1 TAB Nitroglycerin 0.4 mg Q5MINP PRN SL 10/09/24 18:00 Morphine Sulfate 2 mg Q30M PRN IV 10/09/24 18:00 Ondansetron HCl 4 mg Q4HPRN PRN IV 10/10/24 04:45 10/11/24 22:06 4 MG Morphine Sulfate 4 mg Q4HPRN PRN IV 10/10/24 11:30 10/11/24 22:11 4 MG Oxycodone/ Acetaminophen 2 tab Q4HP PRN PO 10/10/24 15:45 10/12/24 02:13 2 TAB Nitrofurantoin Macrocrystals 100 mg BID PO 10/11/24 22:00 10/11/24 22:03 100 MG laboratory and microbiology Laboratory Tests 10/11/24 06:02 10/09/24 14:55 Test 10/11/24 06:02 Range/Units Serum Glucose 96 74-106 mg/dL Assessment/Plan Patient is a 79-year-old female who presented to the hospital with chest discomfort. On presentation, there was a question about STEMI on EKG and the patient had cardiac catheterization by other technical project manager (Dr Mijares). There was no indication for any intervention. She is known to me from prior visits on outside. Denies any chest pain at the time of evaluation. High sensitive troponin has been negative. Lying comfortably flat in bed, no JVD, pink and wet mucosa, no carotid bruit, no goiter, lungs: Not using accessory muscles of breathing, lungs reveal scattered rhonchi, cardiac: Regular regular, no thrill/gallop, 2+murmur in apex, abdomen: Soft, no hepatomegaly, some suprapubic and upper epigastric tenderness is positive, no rebound tenderness, extremities: No edema, dorsalis pedis is 2+ bilateral. Right femoral/groin area with no hematoma. Past medical history includes hypertension, hyperlipidemia, coronary artery disease, history of CABG (2010), systolic heart failure, ischemic cardiomyopathy, gout, kidney stone, s/p ESWL, frequent UTI, history of CVA, Diverticulosis, COPD, s/p COVID, depression, Anxiety, GERD, history of appendectomy/hysterectomy/tonsillectomy, and history of BiV ICD (Biotronik) implantation. She is chronically wheelchair-bound. She was previously in hospice for heart failure. She is allergic to codeine. She quit smoking years ago. She is DNR. She also has diagnosis of parkinsonism. Cardiac catheterization of August 26, 2024 (performed in [facility]) revealed triple-vessel [place] coronary artery disease. STRETCHING MACHINE OPERATOR of obtuse marginal. STRETCHING MACHINE OPERATOR of RCA. Lad with 75% lesion and status post drug-eluting stent deployment. It is of note that there is patent SVG to obtuse marginal and also patent SVG to RCA. Cardiac catheterization of September 2020 revealed ejection fraction of 20%, STRETCHING MACHINE OPERATOR of SVG to diagonal, patent TAN, patent SVG to OM, patent SVG to PDA and STRETCHING MACHINE OPERATOR of RCA. Echocardiogram of September 04, 2024 reported: Dilated left ventricle. LVEF of 10%. Increased EDP. Pacing wire in right-sided chambers. Mild mitral regurgitation. As there was no good tricuspid regurgitation jet, right ventricular systolic pressure could not be estimated Echocardiogram of August 25, 2024 (performed in [facility]) for PE old ejection fraction of 20% Echocardiogram of reported: LV EF of 15-20%, biatrial enlargement, pacing wire in the right-sided chambers. Echocardiogram of November 22, 2023 revealed: Dilated left ventricle, LVEF of 10%, pacing wire and right-sided chambers, mild mitral regurgitation. Echocardiogram of August 28, 2023 revealed: Dilated left ventricle with significantly reduced systolic function. LVEF of 20%. Elevated LVEDP, dilated four chambers. Pacing wire was seen in right-sided chamber. [id number] MR. Echocardiogram of January 03, 2023 revealed ejection fraction of 20 to 25% and mild left ventricular enlargement Echocardiogram of March 25, 2023 (performed in the office) revealed four- chamber dilatation, LVEF of 20 to 25%, mild to moderate MR, mild TR, trace pulmonary valve insufficiency and right ventricular systolic pressure of 35 mmHg Echocardiogram of March 21, 2022 revealed ejection fraction of around 20%, mild MR/TR Echocardiogram of February 17, 2021 revealed dilated LV, LVEF around 25%, severe diffuse hypokinesis, increased LVEDP, dilated left and right atria, mild to moderate MR, mild TR. Echocardiogram of December 30, 2020 reported ejection fraction less than 20% and dilated left atrium. Echocardiogram of August 2020 revealed ejection fraction less than 25%, right atrial enlargement, left atrial enlargement and moderate MR. Creatinine: 1.2 - 1.03 Potassium: 4.5 - 4.2 BNP: 516.12 Troponin (high sensitive): 21 Chest x-ray reported: IMPRESSION: 1. No evidence of acute disease. 2. Mild cardiomegaly with median sternotomy EKG reviewed: Revealed sinus rhythm with paced ventricular rhythm Cardiac catheterization revealed: Significantly reduced systolic function. LAD with patent stent. STRETCHING MACHINE OPERATOR of RCA and obtuse marginal. Patent SVG to obtuse marginal and patent SVG to RCA. Patient is a 79-year-old female presented with chest pain. There was question about STEMI and the patient had cardiac catheterization which revealed no indication for any intervention. It did reveal previously known findings. Patient is on dual antiplatelet therapy for previously implanted stent. To be kept on aspirin/Plavix. Does have baseline history of ischemic/systolic heart failure which at this point is considered compensated. She is DNR. Does complain of dysuria and has history of UTIs Chest pain, atypical Bronchitis/URI COPD exacerbation Ischemic cardiomyopathy, history of Coronary artery disease, status post CABG Status post PCI Diverticular disease Renal calculi Emphysema Kidney stone, history of Coronary artery disease, SP CABG GERD Hypertension Hyperlipidemia Gout Constipation UTI Cardiac suggestion for management: Manage on telemetry Follow-up electrolytes and kidney function tests and correct abnormalities Continue Aspirin/Plavix Continue Toprol-XL/Entresto/Aldactone/Ranolazine/Atorvastatin Evaluation and management of UTI/dysuria as per primary Cardiac monge, stable Further evaluation and management depends on the above and clinical course A total of 55 minutes was spent reviewing the patient record, examining the patient, making a diagnostic and therapeutic plan, discussing this plan with medical personnel, following up on diagnostic studies and following the patient for clinical stability excluding any and all procedures. At least 50% of this time was spent in direct, [id number] contact. Thank you for allowing me to participate in this patient's care. Further recommendations will depend on patient's clinical course. Please do not hesitate to contact me if you have any questions or concerns. This medical document was created using electronic medical record system with [employer] computerized dictation system. Although this document has been carefully reviewed, there may still be some phonetic and typographical errors. These areas are purely typographical due to the imperfection of the software programs, and do not reflect any compromise in the patient's medical care. Plan discussed with: Patient, Other (nurse) RODRIGUEZ LEBRON MD October 12, 2024 08:16
--- NOTE | 2024-10-12 14:50 | DVHPN2 ---
Subjective Complains of shortness of breaths Reviewed: Care Plan, Labs, Medications, Previous Orders, Radiology, Other (cardio) Changes from previous H/P or p: Changes Cardiovascular: Chest Pain Objective Vitals Vital Signs Date Time Temp Pulse Resp B/P (MAP) Pulse Ox O2 Delivery O2 Flow Rate FiO2 10/12/24 13:35 61 16 102/52 10/12/24 13:00 97.5 95 97.5 10/12/24 08:15 Nasal Cannula* 2 28 Intake/Output Intake and Output 10/12/24 07:00 Intake Total 1221 ml Output Total 800 ml Balance 421 ml Intake Oral 1221 ml Output Urine Total 800 ml # Voids 2 General Appearance: Alert, Oriented X3, Cooperative, No acute distress HEENT: Atraumatic Lungs: Clear to auscultation, Other (few crackles) Cardiovascular: Regular rate Abdomen: Normal bowel sounds, Soft, Other (minimal usual tenderness) Extremities: Other (mild edema BLE) Medications Current Medications Medications Dose Ordered Sig/Asha Route Start Time Stop Time Status Last Admin Dose Admin Spironolactone 25 mg DAILY PO 10/10/24 10:00 10/12/24 09:34 25 MG Ranolazine 500 mg BID PO 10/09/24 22:00 10/12/24 09:34 500 MG Aspirin 81 mg DAILY PO 10/10/24 10:00 10/12/24 09:34 81 MG Clopidogrel Bisulfate 75 mg DAILY PO 10/10/24 10:00 10/12/24 09:34 75 MG Metoprolol Succinate 25 mg DAILY PO 10/10/24 10:00 Atorvastatin Calcium 40 mg HS PO 10/09/24 22:00 10/11/24 22:04 40 MG EZETIMIBE 10 mg DAILY PO 10/10/24 10:00 10/12/24 09:33 10 MG Sacubitril/ Valsartan 1 tab BID PO 10/09/24 22:00 10/12/24 10:03 1 TAB Nitroglycerin 0.4 mg Q5MINP PRN SL 10/09/24 18:00 Morphine Sulfate 2 mg Q30M PRN IV 10/09/24 18:00 Ondansetron HCl 4 mg Q4HPRN PRN IV 10/10/24 04:45 10/12/24 13:35 4 MG Morphine Sulfate 4 mg Q4HPRN PRN IV 10/10/24 11:30 10/12/24 13:35 4 MG Oxycodone/ Acetaminophen 2 tab Q4HP PRN PO 10/10/24 15:45 10/12/24 02:13 2 TAB Nitrofurantoin Macrocrystals 100 mg BID PO 10/11/24 22:00 10/12/24 09:34 100 MG Laboratory Results Laboratory Tests 10/09/24 14:55 10/11/24 06:02 Urinalysis Test 10/10/24 04:20 Urine Color Yellow (Yellow) Urine Clarity Clear (Clear) Urine pH 6.0 (5.0-9.0) Urine Specific [place] > 1.050 (1.001-1.035) Urine Protein Trace (Negative) H Urine Ketones Negative (Negative) Urine Blood Negative /uL (Negative) Urine Nitrite Negative (Negative) Urine Bilirubin Negative (Negative) Urine Urobilinogen Normal mg/dL (Negative) Urine Leukocyte Esterase Negative /uL (Negative) Urine RBC 3 /hpf (0 - 4) Urine Microscopic WBC 10 /HPF (0-5) H Urine Squamous Epithelial Cells Few /hpf (<5) Urine Bacteria None seen /hpf (None Seen) Urine Glucose Normal mg/dL (Normal) Microbiology Microbiology Date/Time Source Procedure Growth Status 10/10/24 23:25 Voided Urine Urine Culture - Preliminary Resulted 10/09/24 22:10 Nose MRSA Screen - Final Complete Assessment/Plan Assessment/Plan Acute STEMI Ischemic cardiomyopathy EF 10% Hypertension Mixed hyperlipidemia GERD History of biventricular ICD Severe coronary artery disease status post CABG and PCI Acute kidney injury due to vasomotor nephropathy COPD Chronic respiratory failure on home O2 Diverticulosis History of renal calculi Gout Constipation UTI Plan Aspirin Lipitor Plavix Zetia Metoprolol Ranexa Entresto Aldactone Cardiology consult Dr. Mercado Monitor closely Full code Advance directives discussed with the patient for 20 minutes 10/11/2024: UTI: Discontinue Cipro and start Macrobid Coronary artery disease with ischemic cardiomyopathy Hypertension COPD Acute kidney injury due to vasomotor nephropathy Chronic respiratory failure on home O2 Continue aspirin, Lipitor, Plavix, metoprolol, Zetia, Ranexa, Aldactone, Entresto Dr. Mercado is following Monitor the patient closely Discharge planning for tomorrow 10/12/2024: Order med neb treatments as needed with albuterol and Atrovent Macrobid for UTI Urine culture showed Gram-negative rods, sensitivity is pending Aspirin and Lipitor and Plavix Zetia and metoprolol Entresto and Aldactone Ranexa Monitor closely The rest of the management will depend on the hospital course Plan discussed with: Patient Date of Service: October 12, 2024 Billing Provider: YENNY FRAIRE MD Common Visit Codes: [id number] INP/OBS CARE(HIGH) YENNY FRAIRE MD October 12, 2024 14:50
[2024-10-12] MEDS: ALBUTEROL SULF 2.5 MG/0.5ML(0.5%) NEB SOLN NEB PRN (20:24)
[2024-10-12] MEDS: IPRATROPIUM BROM 0.5 MG/2.5ML INH SOL NEB PRN (20:24)
[2024-10-13] VITALS (15 sets, daily range): BP systolic 102–119; BP diastolic 30–57; PULSE 60–87; RESP 15–18; TEMP 98–98.4; O2SAT 93–100
--- NOTE | 2024-10-13 07:54 | DVHPN2 ---
Progress Note - Dictate Date Seen: October 13, 2024 Medical Necessity Reason Pt with a Central, PICC or Fol: No vital signs Vital Sign Date Time Temp Pulse Resp B/P (MAP) Pulse Ox O2 Delivery O2 Flow Rate FiO2 10/13/24 06:06 64 16 101/66 10/13/24 05:00 98.0 96 98.0 10/13/24 00:36 Nasal Cannula 2.0 10/13/24 00:36 28 Total Intake and Output 10/12/24 10/12/24 10/13/24 15:00 23:00 07:00 Intake Total 817 ml 250 ml Output Total 1700 ml Balance 817 ml -1450 ml medications Current Medications Medications Dose Ordered Sig/Asha Route Start Time Stop Time Status Last Admin Dose Admin Spironolactone 25 mg DAILY PO 10/10/24 10:00 10/12/24 09:34 25 MG Ranolazine 500 mg BID PO 10/09/24 22:00 10/12/24 22:14 500 MG Aspirin 81 mg DAILY PO 10/10/24 10:00 10/12/24 09:34 81 MG Clopidogrel Bisulfate 75 mg DAILY PO 10/10/24 10:00 10/12/24 09:34 75 MG Metoprolol Succinate 25 mg DAILY PO 10/10/24 10:00 Atorvastatin Calcium 40 mg HS PO 10/09/24 22:00 10/12/24 22:14 40 MG EZETIMIBE 10 mg DAILY PO 10/10/24 10:00 10/12/24 09:33 10 MG Sacubitril/ Valsartan 1 tab BID PO 10/09/24 22:00 10/12/24 22:15 1 TAB Nitroglycerin 0.4 mg Q5MINP PRN SL 10/09/24 18:00 Morphine Sulfate 2 mg Q30M PRN IV 10/09/24 18:00 Ondansetron HCl 4 mg Q4HPRN PRN IV 10/10/24 04:45 10/13/24 05:35 4 MG Morphine Sulfate 4 mg Q4HPRN PRN IV 10/10/24 11:30 10/13/24 05:36 4 MG Oxycodone/ Acetaminophen 2 tab Q4HP PRN PO 10/10/24 15:45 10/12/24 02:13 2 TAB Nitrofurantoin Macrocrystals 100 mg BID PO 10/11/24 22:00 10/12/24 22:15 100 MG Albuterol 2.5 mg Q4HPRN PRN NEB 10/12/24 15:00 10/13/24 00:36 2.5 MG Ipratropium [place] 0.5 mg Q4HPRN PRN NEB 10/12/24 15:00 10/13/24 00:36 0.5 MG laboratory and microbiology Laboratory Tests 10/11/24 06:02 10/09/24 14:55 Test 10/11/24 06:02 Range/Units Serum Glucose 96 74-106 mg/dL Assessment/Plan Patient is a 79-year-old female who presented to the hospital with chest discomfort. On presentation, there was a question about STEMI on EKG and the patient had cardiac catheterization by other radio aerial installer (Dr Mijares). There was no indication for any intervention. She is known to me from prior visits on outside. Denies any chest pain at the time of evaluation. High sensitive troponin has been negative. Lying comfortably flat in bed, no JVD, pink and wet mucosa, no carotid bruit, no goiter, lungs: Not using accessory muscles of breathing, lungs reveal scattered rhonchi, cardiac: Regular regular, no thrill/gallop, 2+murmur in apex, abdomen: Soft, no hepatomegaly, some suprapubic and upper epigastric tenderness is positive, no rebound tenderness, extremities: No edema, dorsalis pedis is 2+ bilateral. Right femoral/groin area with no hematoma. Past medical history includes hypertension, hyperlipidemia, coronary artery disease, history of CABG (2010), systolic heart failure, ischemic cardiomyopathy, gout, kidney stone, s/p ESWL, frequent UTI, history of CVA, Diverticulosis, COPD, s/p COVID, depression, Anxiety, GERD, history of appendectomy/hysterectomy/tonsillectomy, and history of BiV ICD (Biotronik) implantation. She is chronically wheelchair-bound. She was previously in hospice for heart failure. She is allergic to codeine. She quit smoking years ago. She is DNR. She also has diagnosis of parkinsonism. Cardiac catheterization of August 26, 2024 (performed in [facility]) revealed triple-vessel match-[id number]-be-nash-she-wish band coronary artery disease. CRUISE COUNSELOR of obtuse marginal. CRUISE COUNSELOR of RCA. Lad with 75% lesion and status post drug-eluting stent deployment. It is of note that there is patent SVG to obtuse marginal and also patent SVG to RCA. Cardiac catheterization of September 2020 revealed ejection fraction of 20%, CRUISE COUNSELOR of SVG to diagonal, patent TAN, patent SVG to OM, patent SVG to PDA and CRUISE COUNSELOR of RCA. Echocardiogram of September 04, 2024 reported: Dilated left ventricle. LVEF of 10%. Increased EDP. Pacing wire in right-sided chambers. Mild mitral regurgitation. As there was no good tricuspid regurgitation jet, right ventricular systolic pressure could not be estimated Echocardiogram of August 25, 2024 (performed in [facility]) for PE old ejection fraction of 20% Echocardiogram of reported: LV EF of 15-20%, biatrial enlargement, pacing wire in the right-sided chambers. Echocardiogram of November 22, 2023 revealed: Dilated left ventricle, LVEF of 10%, pacing wire and right-sided chambers, mild mitral regurgitation. Echocardiogram of August 28, 2023 revealed: Dilated left ventricle with significantly reduced systolic function. LVEF of 20%. Elevated LVEDP, dilated four chambers. Pacing wire was seen in right-sided chamber. [id number] MR. Echocardiogram of January 03, 2023 revealed ejection fraction of 20 to 25% and mild left ventricular enlargement Echocardiogram of March 25, 2023 (performed in the office) revealed four- chamber dilatation, LVEF of 20 to 25%, mild to moderate MR, mild TR, trace pulmonary valve insufficiency and right ventricular systolic pressure of 35 mmHg Echocardiogram of March 21, 2022 revealed ejection fraction of around 20%, mild MR/TR Echocardiogram of February 17, 2021 revealed dilated LV, LVEF around 25%, severe diffuse hypokinesis, increased LVEDP, dilated left and right atria, mild to moderate MR, mild TR. Echocardiogram of December 30, 2020 reported ejection fraction less than 20% and dilated left atrium. Echocardiogram of August 2020 revealed ejection fraction less than 25%, right atrial enlargement, left atrial enlargement and moderate MR. Creatinine: 1.2 - 1.03 Potassium: 4.5 - 4.2 BNP: 516.12 Troponin (high sensitive): 21 Chest x-ray reported: IMPRESSION: 1. No evidence of acute disease. 2. Mild cardiomegaly with median sternotomy EKG reviewed: Revealed sinus rhythm with paced ventricular rhythm Cardiac catheterization revealed: Significantly reduced systolic function. LAD with patent stent. CRUISE COUNSELOR of RCA and obtuse marginal. Patent SVG to obtuse marginal and patent SVG to RCA. Patient is a 79-year-old female presented with chest pain. There was question about STEMI and the patient had cardiac catheterization which revealed no indication for any intervention. It did reveal previously known findings. Patient is on dual antiplatelet therapy for previously implanted stent. To be kept on aspirin/Plavix. Does have baseline history of ischemic/systolic heart failure which at this point is considered compensated. She is DNR. Does complain of dysuria and has history of UTIs Chest pain, atypical Bronchitis/URI COPD exacerbation Ischemic cardiomyopathy, history of Coronary artery disease, status post CABG Status post PCI Diverticular disease Renal calculi Emphysema Kidney stone, history of Coronary artery disease, SP CABG GERD Hypertension Hyperlipidemia Gout Constipation UTI Cardiac suggestion for management: Manage on telemetry Follow-up electrolytes and kidney function tests and correct abnormalities Continue Aspirin/Plavix Continue Toprol-XL/Entresto/Aldactone/Ranolazine/Atorvastatin Evaluation and management of UTI/dysuria as per primary Cardiac monge, stable Further evaluation and management depends on the above and clinical course A total of 55 minutes was spent reviewing the patient record, examining the patient, making a diagnostic and therapeutic plan, discussing this plan with medical personnel, following up on diagnostic studies and following the patient for clinical stability excluding any and all procedures. At least 50% of this time was spent in direct, [id number] contact. Thank you for allowing me to participate in this patient's care. Further recommendations will depend on patient's clinical course. Please do not hesitate to contact me if you have any questions or concerns. This medical document was created using electronic medical record system with [employer] computerized dictation system. Although this document has been carefully reviewed, there may still be some phonetic and typographical errors. These areas are purely typographical due to the imperfection of the software programs, and do not reflect any compromise in the patient's medical care. Plan discussed with: Patient, Other (nurse) RODRIGUEZ LEBRON MD October 13, 2024 07:54
--- NOTE | 2024-10-13 12:48 | DVHPN2 ---
Subjective She complains of shortness of breaths and bilateral lower back pain Urine culture shows mixed zach Reviewed: Care Plan, Labs, Medications, Previous Orders, Radiology, Other (cardio) Changes from previous H/P or p: Changes Cardiovascular: Chest Pain Objective Vitals Vital Signs Date Time Temp Pulse Resp B/P (MAP) Pulse Ox O2 Delivery O2 Flow Rate FiO2 10/13/24 11:04 69 18 118/60 10/13/24 09:00 98.1 95 98.1 10/13/24 00:36 Nasal Cannula 2.0 10/13/24 00:36 28 Intake/Output Intake and Output 10/13/24 07:00 Intake Total 1067 ml Output Total 1700 ml Balance -633 ml Intake Oral 1067 ml Output Urine Total 1700 ml # Voids 4 General Appearance: Alert, Oriented X3, Cooperative, No acute distress HEENT: Atraumatic Lungs: Clear to auscultation, Other (few crackles) Cardiovascular: Regular rate Abdomen: Normal bowel sounds, Soft, Other (minimal usual tenderness) Extremities: Other (mild edema BLE) Medications Current Medications Medications Dose Ordered Sig/Asha Route Start Time Stop Time Status Last Admin Dose Admin Spironolactone 25 mg DAILY PO 10/10/24 10:00 10/13/24 10:31 25 MG Ranolazine 500 mg BID PO 10/09/24 22:00 10/13/24 10:31 500 MG Aspirin 81 mg DAILY PO 10/10/24 10:00 10/13/24 10:31 81 MG Clopidogrel Bisulfate 75 mg DAILY PO 10/10/24 10:00 10/13/24 10:31 75 MG Metoprolol Succinate 25 mg DAILY PO 10/10/24 10:00 Atorvastatin Calcium 40 mg HS PO 10/09/24 22:00 10/12/24 22:14 40 MG EZETIMIBE 10 mg DAILY PO 10/10/24 10:00 10/13/24 10:32 10 MG Sacubitril/ Valsartan 1 tab BID PO 10/09/24 22:00 10/13/24 10:55 1 TAB Nitroglycerin 0.4 mg Q5MINP PRN SL 10/09/24 18:00 Morphine Sulfate 2 mg Q30M PRN IV 10/09/24 18:00 Ondansetron HCl 4 mg Q4HPRN PRN IV 10/10/24 04:45 10/13/24 10:34 4 MG Morphine Sulfate 4 mg Q4HPRN PRN IV 10/10/24 11:30 10/13/24 10:34 4 MG Oxycodone/ Acetaminophen 2 tab Q4HP PRN PO 10/10/24 15:45 10/12/24 02:13 2 TAB Nitrofurantoin Macrocrystals 100 mg BID PO 10/11/24 22:00 10/13/24 10:31 100 MG Albuterol 2.5 mg Q4HPRN PRN NEB 10/12/24 15:00 10/13/24 00:36 2.5 MG Ipratropium [place] 0.5 mg Q4HPRN PRN NEB 10/12/24 15:00 10/13/24 00:36 0.5 MG Laboratory Results Laboratory Tests 10/09/24 14:55 10/11/24 06:02 Urinalysis Test 10/10/24 04:20 Urine Color Yellow (Yellow) Urine Clarity Clear (Clear) Urine pH 6.0 (5.0-9.0) Urine Specific [place] > 1.050 (1.001-1.035) Urine Protein Trace (Negative) H Urine Ketones Negative (Negative) Urine Blood Negative /uL (Negative) Urine Nitrite Negative (Negative) Urine Bilirubin Negative (Negative) Urine Urobilinogen Normal mg/dL (Negative) Urine Leukocyte Esterase Negative /uL (Negative) Urine RBC 3 /hpf (0 - 4) Urine Microscopic WBC 10 /HPF (0-5) H Urine Squamous Epithelial Cells Few /hpf (<5) Urine Bacteria None seen /hpf (None Seen) Urine Glucose Normal mg/dL (Normal) Microbiology Microbiology Date/Time Source Procedure Growth Status 10/10/24 23:25 Voided Urine Urine Culture - Final Complete 10/09/24 22:10 Nose MRSA Screen - Final Complete Assessment/Plan Assessment/Plan Acute STEMI Ischemic cardiomyopathy EF 10% Hypertension Mixed hyperlipidemia GERD History of biventricular ICD Severe coronary artery disease status post CABG and PCI Acute kidney injury due to vasomotor nephropathy COPD Chronic respiratory failure on home O2 Diverticulosis History of renal calculi Gout Constipation UTI Plan Aspirin Lipitor Plavix Zetia Metoprolol Ranexa Entresto Aldactone Cardiology consult Dr. Mercado Monitor closely Full code Advance directives discussed with the patient for 20 minutes 10/11/2024: UTI: Discontinue Cipro and start Macrobid Coronary artery disease with ischemic cardiomyopathy Hypertension COPD Acute kidney injury due to vasomotor nephropathy Chronic respiratory failure on home O2 Continue aspirin, Lipitor, Plavix, metoprolol, Zetia, Ranexa, Aldactone, Entresto Dr. Mercado is following Monitor the patient closely Discharge planning for tomorrow 10/12/2024: Order med neb treatments as needed with albuterol and Atrovent Macrobid for UTI Urine culture showed Gram-negative rods, sensitivity is pending Aspirin and Lipitor and Plavix Zetia and metoprolol Entresto and Aldactone Ranexa Monitor closely The rest of the management will depend on the hospital course 10/13/2024: Continue current management for another day Macrobid for UTI Oxycodone p.r.n. for pain Continue the other management including aspirin and Plavix and Lipitor and Zetia and metoprolol and Ranexa and Entresto and Aldactone Plan discussed with: Patient My Orders Orders - YENNY FRAIRE MD Procedure Category Date Status Time Albuterol Medneb PHA 10/12/24 In Process (Ventolin Medneb) 15:00 Ipratropium Medneb PHA 10/12/24 In Process (Atrovent Medneb) 15:00 Date of Service: October 13, 2024 Billing Provider: YENNY FRAIRE MD Common Visit Codes: [id number] INP/OBS CARE(MOD) YENNY FRAIRE MD October 13, 2024 12:48
[2024-10-14] VITALS (8 sets, daily range): BP systolic 102–136; BP diastolic 47–79; PULSE 65–87; RESP 15–18; TEMP 97.8–99.1; O2SAT 92–99
--- NOTE | 2024-10-14 06:15 | DVHPN2 ---
Progress Note - Dictate Date Seen: October 14, 2024 Medical Necessity Reason Pt with a Central, PICC or Fol: No vital signs Vital Sign Date Time Temp Pulse Resp B/P (MAP) Pulse Ox O2 Delivery O2 Flow Rate FiO2 10/14/24 05:00 99.1 68 15 111/47 (68) 93 99.1 10/13/24 21:30 Nasal Cannula 2.0 10/13/24 21:30 28 Total Intake and Output 10/13/24 10/13/24 10/14/24 15:00 23:00 07:00 Intake Total 1125 ml 480 ml Output Total 600 ml 500 ml Balance 525 ml -20 ml medications Current Medications Medications Dose Ordered Sig/Asha Route Start Time Stop Time Status Last Admin Dose Admin Spironolactone 25 mg DAILY PO 10/10/24 10:00 10/13/24 10:31 25 MG Ranolazine 500 mg BID PO 10/09/24 22:00 10/13/24 21:08 500 MG Aspirin 81 mg DAILY PO 10/10/24 10:00 10/13/24 10:31 81 MG Clopidogrel Bisulfate 75 mg DAILY PO 10/10/24 10:00 10/13/24 10:31 75 MG Metoprolol Succinate 25 mg DAILY PO 10/10/24 10:00 Atorvastatin Calcium 40 mg HS PO 10/09/24 22:00 10/13/24 21:08 40 MG EZETIMIBE 10 mg DAILY PO 10/10/24 10:00 10/13/24 10:32 10 MG Sacubitril/ Valsartan 1 tab BID PO 10/09/24 22:00 10/13/24 21:08 1 TAB Nitroglycerin 0.4 mg Q5MINP PRN SL 10/09/24 18:00 Morphine Sulfate 2 mg Q30M PRN IV 10/09/24 18:00 Ondansetron HCl 4 mg Q4HPRN PRN IV 10/10/24 04:45 10/13/24 20:58 4 MG Morphine Sulfate 4 mg Q4HPRN PRN IV 10/10/24 11:30 10/13/24 20:57 4 MG Oxycodone/ Acetaminophen 2 tab Q4HP PRN PO 10/10/24 15:45 10/12/24 02:13 2 TAB Nitrofurantoin Macrocrystals 100 mg BID PO 10/11/24 22:00 10/13/24 21:08 100 MG Albuterol 2.5 mg Q4HPRN PRN NEB 10/12/24 15:00 10/13/24 21:42 2.5 MG Ipratropium [place] 0.5 mg Q4HPRN PRN NEB 10/12/24 15:00 10/13/24 15:52 0.5 MG laboratory and microbiology Laboratory Tests 10/11/24 06:02 10/09/24 14:55 Test 10/11/24 06:02 Range/Units Serum Glucose 96 74-106 mg/dL Assessment/Plan Patient is a 79-year-old female who presented to the hospital with chest discomfort. On presentation, there was a question about STEMI on EKG and the patient had cardiac catheterization by other investigator operator (Dr Mijares). There was no indication for any intervention. She is known to me from prior visits on outside. Denies any chest pain at the time of evaluation. High sensitive troponin has been negative. Lying comfortably flat in bed, no JVD, pink and wet mucosa, no carotid bruit, no goiter, lungs: Not using accessory muscles of breathing, lungs reveal scattered rhonchi, cardiac: Regular regular, no thrill/gallop, 2+murmur in apex, abdomen: Soft, no hepatomegaly, some suprapubic and upper epigastric tenderness is positive, no rebound tenderness, extremities: No edema, dorsalis pedis is 2+ bilateral. Right femoral/groin area with no hematoma. Past medical history includes hypertension, hyperlipidemia, coronary artery disease, history of CABG (2010), systolic heart failure, ischemic cardiomyopathy, gout, kidney stone, s/p ESWL, frequent UTI, history of CVA, Diverticulosis, COPD, s/p COVID, depression, Anxiety, GERD, history of appendectomy/hysterectomy/tonsillectomy, and history of BiV ICD (Biotronik) implantation. She is chronically wheelchair-bound. She was previously in hospice for heart failure. She is allergic to codeine. She quit smoking years ago. She is DNR. She also has diagnosis of parkinsonism. Cardiac catheterization of August 26, 2024 (performed in [facility]) revealed triple-vessel wales coronary artery disease. [employer] of obtuse marginal. 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 Lad with 75% lesion and status post drug-eluting stent deployment. It is of note that there is patent SVG to obtuse marginal and also patent SVG to RCA. Cardiac catheterization of September 2020 revealed ejection fraction of 20%, [employer] of SVG to diagonal, patent TAN, patent SVG to OM, patent SVG to PDA and [employer]OR of RCA. Echocardiogram of September 04, 2024 reported: Dilated left ventricle. LVEF of 10%. Increased EDP. Pacing wire in right-sided chambers. Mild mitral regurgitation. As there was no good tricuspid regurgitation jet, right ventricular systolic pressure could not be estimated Echocardiogram of August 25, 2024 (performed in [facility]) for PE old ejection fraction of 20% Echocardiogram of reported: LV EF of 15-20%, biatrial enlargement, pacing wire in the right-sided chambers. Echocardiogram of November 22, 2023 revealed: Dilated left ventricle, LVEF of 10%, pacing wire and right-sided chambers, mild mitral regurgitation. Echocardiogram of August 28, 2023 revealed: Dilated left ventricle with significantly reduced systolic function. LVEF of 20%. Elevated LVEDP, dilated four chambers. Pacing wire was seen in right-sided chamber. [id number] MR. Echocardiogram of January 03, 2023 revealed ejection fraction of 20 to 25% and mild left ventricular enlargement Echocardiogram of March 25, 2023 (performed in the office) revealed four- chamber dilatation, LVEF of 20 to 25%, mild to moderate MR, mild TR, trace pulmonary valve insufficiency and right ventricular systolic pressure of 35 mmHg Echocardiogram of March 21, 2022 revealed ejection fraction of around 20%, mild MR/TR Echocardiogram of February 17, 2021 revealed dilated LV, LVEF around 25%, severe diffuse hypokinesis, increased LVEDP, dilated left and right atria, mild to moderate MR, mild TR. Echocardiogram of December 30, 2020 reported ejection fraction less than 20% and dilated left atrium. Echocardiogram of August 2020 revealed ejection fraction less than 25%, right atrial enlargement, left atrial enlargement and moderate MR. Creatinine: 1.2 - 1.03 Potassium: 4.5 - 4.2 BNP: 516.12 Troponin (high sensitive): 21 Chest x-ray reported: IMPRESSION: 1. No evidence of acute disease. 2. Mild cardiomegaly with median sternotomy EKG reviewed: Revealed sinus rhythm with paced ventricular rhythm Cardiac catheterization revealed: Significantly reduced systolic function. LAD with patent stent. 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 Patent SVG to obtuse marginal and patent SVG to RCA. Patient is a 79-year-old female presented with chest pain. There was question about STEMI and the patient had cardiac catheterization which revealed no indication for any intervention. It did reveal previously known findings. Patient is on dual antiplatelet therapy for previously implanted stent. To be kept on aspirin/Plavix. Does have baseline history of ischemic/systolic heart failure which at this point is considered compensated. She is DNR. Does complain of dysuria and has history of UTIs Chest pain, atypical Bronchitis/URI COPD exacerbation Ischemic cardiomyopathy, history of Coronary artery disease, status post CABG Status post PCI Diverticular disease Renal calculi Emphysema Kidney stone, history of Coronary artery disease, SP CABG GERD Hypertension Hyperlipidemia Gout Constipation UTI Cardiac suggestion for management: Manage on telemetry Follow-up electrolytes and kidney function tests and correct abnormalities Continue Aspirin/Plavix Continue Toprol-XL/Entresto/Aldactone/Ranolazine/Atorvastatin Evaluation and management of UTI/dysuria as per primary Cardiac monge, stable Further evaluation and management depends on the above and clinical course A total of 55 minutes was spent reviewing the patient record, examining the patient, making a diagnostic and therapeutic plan, discussing this plan with medical personnel, following up on diagnostic studies and following the patient for clinical stability excluding any and all procedures. At least 50% of this time was spent in direct, [id number] contact. Thank you for allowing me to participate in this patient's care. Further recommendations will depend on patient's clinical course. Please do not hesitate to contact me if you have any questions or concerns. This medical document was created using electronic medical record system with [employer] computerized dictation system. Although this document has been carefully reviewed, there may still be some phonetic and typographical errors. These areas are purely typographical due to the imperfection of the software programs, and do not reflect any compromise in the patient's medical care. Dietary Evaluation Review Comments: Continue current POC Expected Outcomes/Goals: To meet >75% estimated needs Fu 3-5 days Plan discussed with: Patient, Other (nurse) RODRIGUEZ LEBRON MD October 14, 2024 06:15
[2024-10-14] MEDS ORDERED: NITR-87 PO (11:49)
--- NOTE | 2024-10-14 22:50 | DVHDS2 ---
Discharge Summary Date of Admission October 09, 2024 at 20:41 Date of Discharge: October 14, 2024 Labs/Diagnostic Data: Laboratory Results Test 10/11/24 06:02 10/10/24 04:20 10/09/24 14:55 Sodium Level 140 mmol/L (136-145) Potassium Level 4.2 mmol/L (3.5-5.1) Chloride Level 107 mmol/L (98-107) Carbon Dioxide Level 27 mmol/L (20-31) Anion Gap 6 (5-15) Blood Urea Nitrogen 22 mg/dL (9-23) Creatinine 1.03 mg/dL (0.550-1.02) Glomerular Filtration Rate Calc 55 mL/min (>90) BUN/Creatinine Ratio 21.4 (10.0-20.0) Serum Glucose 96 mg/dL (74-106) Calcium Level 9.8 mg/dL (8.7-10.4) Total Bilirubin 0.4 mg/dL (0.2-1.0) Aspartate Amino Transferase (AST) 18 U/L (13-40) Alanine Aminotransferase (ALT) 10 U/L (7-40) Alkaline Phosphatase 65 U/L (46-116) Total Protein 5.8 g/dL (5.7-8.2) Albumin 4.0 g/dL (3.2-4.8) Urine Color Yellow (Yellow) Urine Clarity Clear (Clear) Urine pH 6.0 (5.0-9.0) Urine Specific [place] > 1.050 (1.001-1.035) Urine Protein Trace (Negative) Urine Ketones Negative (Negative) Urine Blood Negative /uL (Negative) Urine Nitrite Negative (Negative) Urine Bilirubin Negative (Negative) Urine Urobilinogen Normal mg/dL (Negative) Urine Leukocyte Esterase Negative /uL (Negative) Urine RBC 3 /hpf (0 - 4) Urine Microscopic WBC 10 /HPF (0-5) Urine Squamous Epithelial Cells Few /hpf (<5) Urine Bacteria None seen /hpf (None Seen) Urine Glucose Normal mg/dL (Normal) White Blood Count 7.7 10^3/uL (4.4-10.8) Red Blood Count 4.37 10^6/uL (4.0-5.20) Hemoglobin 12.9 g/dL (12.2-16.2) Hematocrit 38.6 % (36.0-46.0) Mean Corpuscular Volume 88.3 fL (80.0-100.0) Mean Corpuscular Hemoglobin 29.5 pg (28.0-32.0) Mean Corpuscular Hemoglobin Concent 33.5 g/dL (32.0-36.0) Red Cell Distribution Width 16.2 % (11.8-14.3) Platelet Count 385 10^3/uL (140-450) Mean Platelet Volume 7.9 fL (6.9-10.8) Neutrophils (%) (Auto) 54.6 % (37.0-80.0) Lymphocytes (%) (Auto) 25.0 % (10.0-50.0) Monocytes (%) (Auto) 14.4 % (0.0-12.0) Eosinophils (%) (Auto) 4.6 % (0.0-7.0) Basophils (%) (Auto) 1.4 % (0.0-2.0) Neutrophils # (Auto) 4.2 10 ^3/uL (1.6-8.6) Lymphocytes # (Auto) 1.9 10 ^3/uL (0.4-5.4) Monocytes # (Auto) 1.1 10 ^3/uL (0-1.3) Eosinophils # (Auto) 0.4 10 ^3/uL (0-0.8) Basophils # (Auto) 0.1 10 ^3/uL (0-0.2) Nucleated Red Blood Cells 0.2 % Prothrombin Time 10.8 sec (9.3-11.8) Prothrombin Time INR 1.02 (0.9-1.15) Activated Partial Thromboplast Time 20.9 SEC (24.5-34.5) Troponin I High Sensitivity 21 ng/L (</=34) B-Type Natriuretic Peptide 516.12 pg/mL (0-100) Other Laboratory Tests 10/11/24 06:02 10/09/24 14:55 Brief Hx & Hospital Course: Final Diagnosis: ACUTE STEMI ISCHEMIC CARDIOMYOPATHY EF 10% MIXED HYPERLIPEDEMIA HYPERTENSION BIVENTRICULAR ICD CORONARY ARTERY DISEASE CABG ACUTE KIDNEY INJURY NEUROPATHY COPD RESPIRATORY FAILURE HOME O2 DIVERTICULOSIS RENAL CALCULI GOUT CONSTIPATION URINARY TRACT INFECTION 79-year-old female with a history of coronary artery disease status post CABG presented to the emergency room with chest pain She was diagnosed with a STEMI Cardiology recommended an angiogram, was done by Dr. Mijares, showed three-vessel coronary artery disease, stable with cardiomyopathy, medical management was recommended She has cardiomyopathy ejection fraction 10% She has a CABG in the past She had PCI of the LAD She has a biventricular ICD Hypertension Dyslipidemia GERD She also had a UTI and therefore she was started on Macrobid Her COPD was treated with the breathing treatments and oxygen Overall she did well She was stable No asymptomatic She was discharged home today on Macrobid for the UTI and the rest of her medications and follow up with her primary care physician as soon as possible. Condition at Discharge: Stable Final Diagnosis/Problems List ACUTE STEMI ISCHEMIC CARDIOMYOPATHY EF 10% MIXED HYPERLIPEDEMIA HYPERTENSION BIVENTRICULAR ICD CORONARY ARTERY DISEASE CABG ACUTE KIDNEY INJURY NEUROPATHY COPD RESPIRATORY FAILURE HOME O2 DIVERTICULOSIS RENAL CALCULI GOUT CONSTIPATION URINARY TRACT INFECTION Discharge Disposition: Home SNF Discharge Will this Physician continue t: No Discharge Instruct/Medications Diet: Cardiac 2g Na,low cholest Activity: No Restrictions, As Tolerated Follow Up/Referral: PCP as soon as possible Medications: Same home medications Discharge Statement: "Patient was advised to return to the ER or call 911 if any headaches, dizziness, shortness of breath, chest pain, abdominal pain, bleeding, fevers, or worsening of medical condition. Patient was counseled about treatment plan, medications, possible side effects, patientverbalized understanding. All questions were answered to the best of my ability. This discharge took greater then 30 minutes in planning, reviewing documentation, counseling the patient, and discussing with other team members." ASSESSMENT ASSESSMENT Assessment ACUTE STEMI ISCHEMIC CARDIOMYOPATHY EF 10% MIXED HYPERLIPEDEMIA HYPERTENSION BIVENTRICULAR ICD CORONARY ARTERY DISEASE CABG ACUTE KIDNEY INJURY NEUROPATHY COPD RESPIRATORY FAILURE HOME O2 DIVERTICULOSIS RENAL CALCULI GOUT CONSTIPATION URINARY TRACT INFECTION Date of Service: October 14, 2024 Billing Provider: YENNY FRAIRE MD Common Visit Codes: 49455-BOK/OBS DISCH DAY >30min YENNY FRAIRE MD October 14, 2024 22:49
== END 2024-10-14 20:43 | disposition home health service (06) | DRG 280 ==
LOC: EDBD 16:16 → ER 16:20 → OVERFLOW 20:41 → TELE-WESTW 20:57
PROVIDERS: ADMIT Internal Medicine Geriatric Medicine; ATTEND Internal Medicine Geriatric Medicine
PROC: B211YZZ Fluoroscopy of Multiple Coronary Arteries using Other Contrast (ICD-10-PCS; principal; 2024-10-09)
PROC: B215YZZ Fluoroscopy of Left Heart using Other Contrast (ICD-10-PCS; 2024-10-09)
PROC: 4A023N7 Measurement of Cardiac Sampling and Pressure, Left Heart, Percutaneous Approach (ICD-10-PCS; 2024-10-09)
PROC: B212YZZ Fluoroscopy of Single Coronary Artery Bypass Graft using Other Contrast (ICD-10-PCS; 2024-10-09)
DX: I21.3 ST elevation (STEMI) myocardial infarction of unspecified site (principal); N17.0 Acute kidney failure with tubular necrosis; I50.22 Chronic systolic (congestive) heart failure; J96.10 Chronic respiratory failure, unspecified whether with hypoxia or hypercapnia; N39.0 Urinary tract infection, site not specified; J44.1 Chronic obstructive pulmonary disease with (acute) exacerbation; Z66 Do not resuscitate; I25.10 Atherosclerotic heart disease of native coronary artery without angina pectoris; E78.2 Mixed hyperlipidemia; G89.29 Other chronic pain; I11.0 Hypertensive heart disease with heart failure; I25.5 Ischemic cardiomyopathy; K21.9 Gastro-esophageal reflux disease without esophagitis; K57.30 Diverticulosis of large intestine without perforation or abscess without bleeding; M10.9 Gout, unspecified; J43.9 Emphysema, unspecified; K59.00 Constipation, unspecified; I44.7 Left bundle-branch block, unspecified; N20.0 Calculus of kidney; G62.9 Polyneuropathy, unspecified; E66.9 Obesity, unspecified; Z95.1 Presence of aortocoronary bypass graft; Z95.810 Presence of automatic (implantable) cardiac defibrillator; Z88.1 Allergy status to other antibiotic agents; Z88.5 Allergy status to narcotic agent; Z79.899 Other long term (current) drug therapy; Z87.442 Personal history of urinary calculi; Z82.49 Family history of ischemic heart disease and other diseases of the circulatory system; Z82.3 Family history of stroke; Z83.3 Family history of diabetes mellitus; Z79.02 Long term (current) use of antithrombotics/antiplatelets; Z79.82 Long term (current) use of aspirin; Z99.3 Dependence on wheelchair; Z87.891 Personal history of nicotine dependence; Z86.73 Personal history of transient ischemic attack (TIA), and cerebral infarction without residual deficits; I25.2 Old myocardial infarction; Z86.16 Personal history of COVID-19; Z87.440 Personal history of urinary (tract) infections; Z90.49 Acquired absence of other specified parts of digestive tract; Z90.710 Acquired absence of both cervix and uterus; Z95.5 Presence of coronary angioplasty implant and graft; Z99.81 Dependence on supplemental oxygen; Z68.27 Body mass index [BMI] 27.0-27.9, adult
CPT/HCPCS: 36415; 71045; 80053; 81001; 83880; 84484; 85025; 85610; 85730; 87081; 87086; 93005; 93459; 94640; 97163; 99152; C1887; G0378; J2250; J2405; Q9967

== ENCOUNTER 2024-10-17 13:58 | Inpatient (IN) | payer OTHER, MEDICAID ==
[~2024-10-17] VITALS: Ht 162.6 cm; Wt 80.5 kg
[~2024-10-17 13:58] MED LIST changes: -CEPH500C PO; -CIPR-173 PO; +NITR-87 PO
--- NOTE | 2024-10-17 14:33 | ED.PDOC ---
History of Present Illness HPI Comments 79F BIBA w/ prior MHx of Anemia, Anxiety, Asthma, CAD, CHF, CKF (Stage 3), COPD,Ovarian Cysts CVA, Depression, GERD, Gout, High Lipids, HTN, Kidney Stones, [place] (recently being 2 1/2 weeks of a total of 8 WA's), UTI'S, Home O2 of 2L; SHx of Appendectomy, CABG, Hysterectomy, Pacemaker, PTCA (total of 8), Tonsil lectomy, Back Sx and the c/c of Urinary problems. EMS reports on the [facility] and being admitted into the ER on and discharged on 10/15/24 and was not sent antibiotics for the UTI that the pt has. Pt reports on having Kidney pain w/ burning w/ urination and pressure like CP. Pt notes that she did fall into the bathroom. Denies chills, fever, N/V/D, SOB. Denies any other associated symptom's, modifiers, or recent injuries or sick contact at this time. Chief Complaint: Urinary Time Seen by MD: 14:00 Primary Care Provider: HORTENCIA Reviewed Notes: Nurses Notes, Manager Implementation Notes, Medications, Allergies Allergies: Coded Allergies: Ceftriaxone (Verified Allergy, Intermediate, generalized rash, 11/08/22) SHOP LEAD OMEGA MEJIA Hydrocodone (Verified Allergy, Unknown, rash, 05/18/23) tylenol is okay per patient Home Meds Active Scripts Nitrofurantoin Monohydrate Mac (Macrobid) 100 Mg Cap, 100 MG PO BID for 5 Days, #10 CAP Prov:YENNY FRAIRE MD 10/14/24 Oxycodone W/ Acetaminophen (Percocet 5/325MG) 1 Tab Tb, 1 TAB PO QID, #30 TAB Prov:JANE VEGA MD 09/29/24 Phenazopyridine HCl (Eq Urinary Pain Relief Ma) 99.5 Mg Tab, 99.5 MG PO TID for 10 Days, #30 TAB Prov:PHILL LEAL RESDIENT 09/23/24 Metoprolol Succinate (Metoprolol Succinate Er) 25 Mg Tab, 1 TAB PO DAILY for 30 Days, #30 TAB 5 Refills Prov:AXEL CARABALLO RESIDENT 09/06/24 Spironolactone (Aldactone) 25 Mg Tab, 25 MG PO DAILY for 30 Days, #30 TAB Prov:BHARAT MICHELLE RESIDENT 07/22/24 Oxybutynin Chloride (Oxybutynin Chloride) 5 Mg Tab, 5 MG PO Q8HR for 30 Days, #90 TAB Prov:BHARAT MICHELLE [facility] 07/22/24 Atorvastatin Calcium (ATORVASTATIN CALCIUM) 20 Mg Tab, 40 MG PO HS for 30 Days, #60 TAB Prov:ANGIEBRADDAVISBHARAT RESIDENT 07/22/24 Acetaminophen (Acetaminophen) 325 Mg Tab, 650 MG PO TID for 10 Days, #60 TAB Prov:BHARAT MICHELLE [facility] 07/22/24 Duloxetine Hydrochloride (Duloxetine Hydrochloride) 30 Mg Cap, 30 MG PO DAILY for 30 Days, #30 CAP Prov:WINSOME GOMEZ MD 04/29/24 Clopidogrel Bisulfate (CLOPIDOGREL) 75 Mg Tab, 75 MG PO DAILY for 30 Days, #30 TAB 5 Refills Prov:YENNY FRAIRE MD 11/26/23 Ranolazine (Ranolazine ER) 500 Mg Tab, 500 MG PO BID for 30 Days, #60 TAB 2 Refills Prov:MAGAN RUSS [facility] 09/16/23 Reported Medications Polyethylene Glycol 3350 (Miralax) 17 Gm Pow, 17 GM PO DAILY PRN for FOR CONSTIPATION for 30 Days, #30 01/28/24 Ipratropium-Albuterol (Ipratropium [place]/Albut) 1 Yuli Yuli, 1 VIAL NEB Q6HPRN PRN for SHORTNESS OF BREATH for 13 Days, #180 09/05/23 Fluticasone-Salmeterol (Fluticasone Propionate/SA 250-50 Mcg/Dose) 1 Aer Aer, 1 PUFF INH BID for 30 Days, #60 09/05/23 Albuterol Sulfate (Albuterol Sulfate Hfa) 108 Mcg/Act Aer, 2 PUFF INH Q4HPRN PRN for dyspnea for 17 Days, #18 09/05/23 Cholecalciferol (VITAMIN D3) 2,000 Unit Tab, 1 TAB PO BID for 30 Days, #60 08/28/23 Multiple Vitamin (Tab-A-Radha) Tab, 1 TAB PO DAILY for 30 Days, #30 08/28/23 Aspirin (Aspir-Low) 81 Mg Tab, 1 TAB PO DAILY for 30 Days, #30 4/3/24 Ascorbic Acid (VITAMIN C TABLET) 500 Mg Tb, 1 TAB PO BID for 30 Days, #60 05/18/23 Pantoprazole Sodium Sesquihydr (Pantoprazole Sodium) 40 Mg Tab, 1 TAB PO DAILY 05/18/23 Fluoxetine HCl (Pmdd) (Fluoxetine HCl) 20 Mg Tab, 20 MG PO DAILY, TAB 05/30/20 Discontinued Scripts Ciprofloxacin Hcl (Cipro) 500 Mg Tab, 1 TAB PO BID, #20 TAB Prov:JANE VEGA MD 09/29/24 Cephalexin Monohydrate (Cephalexin) 500 Mg Cap, 1 CAP PO BID for 4 Days, #10 CAP Prov:PEBBLESPHILL REA RESDIDEBRA 09/23/24 Information Source: Patient, Emergency Med Personnel Mode of Arrival: EMS Severity: Moderate Timing: Days Duration: Since onset, Days Prehospital treatment: None Past Medical History PAST MEDICAL HISTORY: Anemia, Anxiety, Asthma, CAD, CHF, CKF, COPD, CVA, Depression, GERD, Gout, High Lipids, HTN, Kidney Stones, [place] (Past Medical History), UTI'S Past Medical History (Other): Home O2 of 2L Surgical History: Appendectomy, CABG, Hysterectomy, Pacemaker, PTCA (8 total), 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 Surgical History (Other): Back Sx 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 History: Ovarian Cysts Family History Family History: Reviewed,noncontributory to illness, Unknown Social History Smoker: Non-Smoker Alcohol: Denies ETOH Use Drugs: Denies Drug Use Lives In: Assisted Care Constitutional: denies: chills, diaphoresis, fatigue, fever, malaise, sweats, weakness, others EENTM: denies: blurred vision, double vision, ear bleeding, ear discharge, ear drainage, ear pain, ear ringing, eye pain, eye redness, hearing loss, mouth pain, mouth swelling, nasal discharge, nose bleeding, nose congestion, nose pain, photophobia, tearing, throat pain, throat swelling, voice changes, others Respiratory: denies: cough, hemoptysis, orthopnea, SOB at rest, shortness of breath, SOB with excertion, stridor, wheezing, others Cardiovascular: reports: chest pain; denies: dizzy spells, diaphoresis, Dyspnea on exertion, edema, irregular heart beat, left arm pain, lightheadedness, palpitations, PND, syncope, others Gastrointestinal: reports: abdominal pain; denies: abdomen distended, blood streaked bowels, constipated, diarrhea, dysphagia, difficulty swallowing, hematemesis, melena, nausea, poor appetite, poor fluid intake, rectal bleeding, rectal pain, vomiting, others Genitourinary: reports: burning; denies: abnormal vagina bleeding, dyspareunia, dysuria, flank pain, frequency, hematuria, incontinence, pain, , vagina discharge, urgency, others Neurological: denies: dizziness, fainting, headache, left sided numbness, left sided weakness, numbness, paresthesia, pre-existing deficit, right sided numbness, right sided weakness, seizure, speech problems, tingling, tremors, weakness, others Musculoskeletal: denies: back pain, gout, joint pain, joint swelling, muscle pain, muscle stiffness, neck pain, others Integumetry: denies: bruises, change in color, change in hair/nails, dryness, laceration, lesions, lumps, rash, wounds, others Allergic/Immunocompromised: denies: Difficulty Healing, Frequent Infections, Hives, Itching, others Hematologic/Lymphatic: denies: anemia, blood clots, easy bleeding, easy bruising, swollen glands, others Endocrine: denies: excessive hunger, excessive sweating, excessive thirst, excessive urination, flushing, intolerance to cold, intolerance to heat, unexplained weight gain, unexplained weight loss, others Psychiatric: denies: anxiety, bipolar disorder, depression, hopeless, panic disorder, schizophrenia, sleepless, suicidal, others All Other Systems: Reviewed and Negative Physical Exam General Appearance: Moderate Distress, Normal HEENT: Normal ENT Inspection, Pharynx Normal, TMs Normal Neck: Full Range of Motion, Non-Tender, Normal, Normal Inspection Respiratory: Chest Non-Tender, Lungs Clear, No Accessory Muscle Use, No Respiratory Distress, Normal Breath Sounds Cardiovascular: No Edema, No JVD, No Murmur, No Gallop, Normal Peripheral Pulses, Regular Rate/Rhythm Breast Exam: Deferred Gastrointestinal: No Organomegaly, Non Tender, No Pulsatile Mass, Normal Bowel Sounds, Soft Genitalia: Deferred Pelvic: Deferred Rectal: Deferred Extremities: No calf tenderness, Normal capillary refill, Normal inspection, Normal range of motion, Non-tender, No pedal edema Musculoskeletal : Apperance: Normal Neurologic: Alert, flat locker II-XII nml as Tested, No Motor Deficits, Normal Affect, Normal Mood, No Sensory Deficits Cerebellar Function: NOT DONE Reflexes: NOT DONE Skin: Dry, Normal Color, Warm Peripheral Pulses: 3+ Radial (R), 3+ Radial (L) Lymphatic: No Adenopathy Was a procedure done? Was a procedure done?: No Differential Dx Considerations may include: Urosepsis Electrolyte imbalance X-Ray, Labs, Meds, VS Vital Signs Date Time Temp Pulse Resp B/P (MAP) Pulse Ox O2 Delivery O2 Flow Rate FiO2 10/17/24 14:45 Nasal Cannula* 3 32 10/17/24 14:40 98.4 60 16 104/54 (71) 96 98.4 10/17/24 14:15 98.4 58 16 111/87 (95) 96 98.4 Lab Test 10/17/24 14:28 10/17/24 14:22 Range/Units White Blood Count 6.8 4.4-10.8 10^3/uL Red Blood Count 4.20 4.0-5.20 10^6/uL Hemoglobin 12.4 12.2-16.2 g/dL Hematocrit 37.0 36.0-46.0 % Mean Corpuscular Volume 88.1 80.0-100.0 fL Mean Corpuscular Hemoglobin 29.6 28.0-32.0 pg Mean Corpuscular Hemoglobin Concent 33.6 32.0-36.0 g/dL Red Cell Distribution Width 16.3 H 11.8-14.3 % Platelet Count 244 140-450 10^3/uL Mean Platelet Volume 8.3 6.9-10.8 fL Neutrophils (%) (Auto) 56.6 37.0-80.0 % Lymphocytes (%) (Auto) 26.0 10.0-50.0 % Monocytes (%) (Auto) 13.6 H 0.0-12.0 % Eosinophils (%) (Auto) 2.9 0.0-7.0 % Basophils (%) (Auto) 0.9 0.0-2.0 % Neutrophils # (Auto) 3.8 1.6-8.6 10 ^3/uL Lymphocytes # (Auto) 1.8 0.4-5.4 10 ^3/uL Monocytes # (Auto) 0.9 0-1.3 10 ^3/uL Eosinophils # (Auto) 0.2 0-0.8 10 ^3/uL Basophils # (Auto) 0.1 0-0.2 10 ^3/uL Nucleated Red Blood Cells 0.1 % Sodium Level 140 136-145 mmol/L Potassium Level 4.3 3.5-5.1 mmol/L Chloride Level 107 98-107 mmol/L Carbon Dioxide Level 24 20-31 mmol/L Anion Gap 9 5-15 Blood Urea Nitrogen 36 H 9-23 mg/dL Creatinine 1.65 #H 0.550-1.02 mg/dL Glomerular Filtration Rate Calc 31 >90 mL/min BUN/Creatinine Ratio 21.8 H 10.0-20.0 Serum Glucose 103 74-106 mg/dL Calcium Level 9.8 8.7-10.4 mg/dL Troponin I High Sensitivity 21 </=34 ng/L Urine Color Yellow Yellow Urine Clarity Clear Clear Urine pH 5.5 5.0-9.0 Urine Specific [place] 1.011 1.001-1.035 Urine Protein Negative Negative Urine Ketones Negative Negative Urine Blood Negative Negative /uL Urine Nitrite Negative Negative Urine Bilirubin Negative Negative Urine Urobilinogen Normal Negative mg/dL Urine Leukocyte Esterase 1+ Negative /uL Urine RBC 2 0 - 4 /hpf Urine Microscopic WBC 10 H 0-5 /HPF Urine Squamous Epithelial Cells Few <5 /hpf Urine Bacteria None seen None Seen /hpf Urine Hyaline Casts Mod 0 - 2 /lpf Urine Glucose Normal Normal mg/dL Patient alert. States that she has dysuria. Was recently discharged from this hospital. Establish intravenous access. Was given fluids. Placed on nasal cannula. She is on home oxygen. Urinalysis shows UTI. Was given Bactrim. Continue monitor. Urine creatinine elevated. Possible ATN. Explained to the patient that she will be admitted for possible sepsis due to urine. Time of 1ST Reevaluation: 14:30 Reevaluation 1ST: Unchanged Patient Education/Counseling: Diagnosis, Treatment, Prognosis Family Education/Counseling: No Family Present Departure 1 Departure Time of Disposition: 15:56 Impression: Primary Impression: Sepsis due to urinary tract infection Additional Impression: Acute tubular necrosis Disposition: ADMITTED INPATIENT Admit to: Med Surg Condition: Guarded Critical Care Note Critical Care Time?: No Stability Stability form required: No Heart Score Heart Score: Heart Score Response (Comments) Value History Slightly Suspicious 0 EKG Normal 0 Age >65 2 Risk Factors >3 or Hx ASHD 2 Troponin Normal limit 0 Total 4 I personally scribed for AURORA RAMIREZ MD ([email or web address]) on 10/17/24 at 14:33. Electronically submitted by Natalio Baugh ([email or web address]). AURORA RAMIREZ MD October 17, 2024 14:33
--- NOTE | 2024-10-17 14:42 | DVH ---
CHEST RADIOGRAPH Indication: sob Technique: Single frontal view of the chest was obtained Comparison: XY CHEST PORTABLE on DOS: 10/09/24, XY CHEST XRAY 1 VIEW on DOS: 09/28/24, XY CHEST PORTABLE on DOS: 09/25/24 FINDINGS: Lines and Tubes: None Lungs: No focal consolidation. Pleura: No effusion. No pneumothorax. Cardiomediastinal contours: Mild cardiomegaly Bones: No acute osseous abnormality. IMPRESSION: 1. No acute cardiopulmonary disease. 2. No significant change from 0 10 09 2024 HS:Y
[2024-10-17 14:48] LABS: Basophils # (auto) 0.1 10 ^3/uL (0-0.2); Basophils % (auto) 0.9 % (0.0-2.0); Eosinophils # (auto) 0.2 10 ^3/uL (0-0.8); Eosinophils % (auto) 2.9 % (0.0-7.0); Hemoglobin 12.4 g/dL (12.2-16.2); Lymphocytes # (auto) 1.8 10 ^3/uL (0.4-5.4); Mean Corpuscular Hemoglobin 29.6 pg (28.0-32.0); Mean Corpuscular Hgb Conc. 33.6 g/dL (32.0-36.0); Mean Corpuscular Volume 88.1 fL (80.0-100.0); Monocytes # (auto) 0.9 10 ^3/uL (0-1.3); Monocytes % (auto) 13.6 % (0.0-12.0); Neutrophils # (auto) 3.8 10 ^3/uL (1.6-8.6); Neutrophils % (auto) 56.6 % (37.0-80.0); Nucleated Red Blood Cells % 0.1 %; Platelet Count (auto) 244 10^3/uL (140-450); Red Cell Distribution Width 16.3 % (11.8-14.3); White Blood Cell 6.8 10^3/uL (4.4-10.8)
[2024-10-17 14:56] LABS: Potassium 4.3 mmol/L (3.5-5.1); Sodium 140 mmol/L (136-145)
[2024-10-17 14:57] LABS: Anion Gap 9 (5-15); Calcium 9.8 mg/dL (8.7-10.4); Carbon Dioxide 24 mmol/L (20-31)
[2024-10-17 14:58] LABS: Urine Bacteria None Seen /hpf (None Seen)
[2024-10-17 15:02] LABS: BUN/Creatinine Ratio 21.8 (10.0-20.0); Glucose 103 mg/dL (74-106)
[2024-10-17 15:06] LABS: Urine Blood Negative /uL (Negative); Urine Clarity Clear (Clear); Urine Color Yellow (Yellow); Urine Hyaline Cast MOD /lpf (0 - 2); Urine Protein, UAD Negative (Negative); Urine Specific Gravity 1.011 (1.001-1.035); Urine Squamous Epithelial Cell FEW /hpf (<5); Urine Urobilinogen Normal (Negative); Urine WBC 10 /HPF (0-5); Urine pH 5.5 (5.0-9.0)
[2024-10-17 15:13] LABS: Blood Urea Nitrogen 36 mg/dL (9-23); Chloride 107 mmol/L (98-107)
--- NOTE | 2024-10-17 16:22 | DVHHP2 ---
Admitting Diagnosis: urinary problem History of Present Illness 79F BIBA w/ prior MHx of Anemia, Anxiety, Asthma, CAD, CHF, CKF (Stage 3), COPD,Ovarian Cysts CVA, Depression, GERD, Gout, High Lipids, HTN, Kidney Stones, [place] (recently being 2 1/2 weeks of a total of 8 NM's), UTI'S, Home O2 of 2L; SHx of Appendectomy, CABG, Hysterectomy, Pacemaker, PTCA (total of 8), 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, Back Sx and the c/c of Urinary problems. EMS reports on the [facility] and being admitted into the ER on and discharged on 10/15/24 and was not sent antibiotics for the UTI that the pt has. Pt reports on having Kidney pain w/ burning w/ urination and pressure like CP. Pt notes that she did fall into the bathroom. Denies chills, fever, N/V/D, SOB. Denies any other associated symptom's, modifiers, or recent injuries or sick contact at this time. 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 History: Ovarian Cysts Family History: Reviewed,noncontributory to illness, Unknown Social History Smoker: Non-Smoker Alcohol: Denies ETOH Use Drugs: Denies Drug Use Lives In: Assisted Care Patient Family History: Arthritis Cardiovascular disease G8 MOTHER, Onset:Unknown Cerebrovascular accident (CVA) G8 FATHER Coronary artery disease G8 MOTHER, Onset:Unknown FH: diabetes mellitus G8 MOTHER, Onset:Unknown FH: heart disease G8 MOTHER, Onset:Unknown FH: hypertension G8 MOTHER, Onset:Unknown FH: lupus 19 CHILD FH: myocardial infarction G8 MOTHER, Onset:Unknown Family history: Cardiovascular disease G8 MOTHER, Onset:Unknown G8 FATHER, Onset:Unknown Glaucoma G8 MOTHER, Onset:Unknown Allergies: Coded Allergies: Ceftriaxone (Verified Allergy, Intermediate, generalized rash, 11/08/22) TICK SEWERCARLENE MEJIA Hydrocodone (Verified Allergy, Unknown, rash, 05/18/23) tylenol is okay per patient Home Meds Active Scripts Nitrofurantoin Monohydrate Mac (Macrobid) 100 Mg Cap, 100 MG PO BID for 5 Days, #10 CAP Prov:YENNY FRAIRE MD 10/14/24 Oxycodone W/ Acetaminophen (Percocet 5/325MG) 1 Tab Tb, 1 TAB PO QID, #30 TAB Prov:JANE VEGA MD 09/29/24 Phenazopyridine HCl (Eq Urinary Pain Relief Ma) 99.5 Mg Tab, 99.5 MG PO TID for 10 Days, #30 TAB Prov:PHILL LEAL RESDIENT 09/23/24 Metoprolol Succinate (Metoprolol Succinate Er) 25 Mg Tab, 1 TAB PO DAILY for 30 Days, #30 TAB 5 Refills Prov:AXEL CARABALLO RESIDENT 09/06/24 Spironolactone (Aldactone) 25 Mg Tab, 25 MG PO DAILY for 30 Days, #30 TAB Prov:BHARAT MICHELLE 07/22/24 Oxybutynin Chloride (Oxybutynin Chloride) 5 Mg Tab, 5 MG PO Q8HR for 30 Days, #90 TAB Prov:BHARAT MICHELLE 07/22/24 Atorvastatin Calcium (ATORVASTATIN CALCIUM) 20 Mg Tab, 40 MG PO HS for 30 Days, #60 TAB Prov:BHARAT MICHELLE 07/22/24 Acetaminophen (Acetaminophen) 325 Mg Tab, 650 MG PO TID for 10 Days, #60 TAB Prov:BHARAT MICHELLE RESIDENT 07/22/24 Duloxetine Hydrochloride (Duloxetine Hydrochloride) 30 Mg Cap, 30 MG PO DAILY for 30 Days, #30 CAP Prov:WINSOME GOMEZ MD 04/29/24 Clopidogrel Bisulfate (CLOPIDOGREL) 75 Mg Tab, 75 MG PO DAILY for 30 Days, #30 TAB 5 Refills Prov:YENNY FRAIRE MD 11/26/23 Ranolazine (Ranolazine ER) 500 Mg Tab, 500 MG PO BID for 30 Days, #60 TAB 2 Refills Prov:MAGAN RUSS 09/16/23 Reported Medications Polyethylene Glycol 3350 (Miralax) 17 Gm Pow, 17 GM PO DAILY PRN for FOR CONSTIPATION for 30 Days, #30 01/28/24 Ipratropium-Albuterol (Ipratropium [place]/Albut) 1 Yuli Yuli, 1 VIAL NEB Q6HPRN PRN for SHORTNESS OF BREATH for 13 Days, #180 09/05/23 Fluticasone-Salmeterol (Fluticasone Propionate/SA 250-50 Mcg/Dose) 1 Aer Aer, 1 PUFF INH BID for 30 Days, #60 09/05/23 Albuterol Sulfate (Albuterol Sulfate Hfa) 108 Mcg/Act Aer, 2 PUFF INH Q4HPRN PRN for dyspnea for 17 Days, #18 09/05/23 Cholecalciferol (VITAMIN D3) 2,000 Unit Tab, 1 TAB PO BID for 30 Days, #60 08/28/23 Multiple Vitamin (Tab-A-Radha) Tab, 1 TAB PO DAILY for 30 Days, #30 08/28/23 Aspirin (Aspir-Low) 81 Mg Tab, 1 TAB PO DAILY for 30 Days, #30 08/28/23 Ascorbic Acid (VITAMIN C TABLET) 500 Mg Tb, 1 TAB PO BID for 30 Days, #60 05/18/23 Pantoprazole Sodium Sesquihydr (Pantoprazole Sodium) 40 Mg Tab, 1 TAB PO DAILY 05/18/23 Fluoxetine HCl (Pmdd) (Fluoxetine HCl) 20 Mg Tab, 20 MG PO DAILY, TAB 05/30/20 Discontinued Scripts Ciprofloxacin Hcl (Cipro) 500 Mg Tab, 1 TAB PO BID, #20 TAB Prov:JANE VEGA MD 09/29/24 Cephalexin Monohydrate (Cephalexin) 500 Mg Cap, 1 CAP PO BID for 4 Days, #10 CAP Prov:PHILL LEAL RESDIENT 09/23/24 Vital Signs Vital Signs Date Time Temp Pulse Resp B/P (MAP) Pulse Ox O2 Delivery O2 Flow Rate FiO2 10/17/24 16:30 59 18 97/59 (72) 98 10/17/24 14:45 Nasal Cannula* 3 32 10/17/24 14:40 98.4 98.4 Results Labs Test 10/17/24 14:28 10/17/24 14:22 Range/Units White Blood Count 6.8 4.4-10.8 10^3/uL Red Blood Count 4.20 4.0-5.20 10^6/uL Hemoglobin 12.4 12.2-16.2 g/dL Hematocrit 37.0 36.0-46.0 % Mean Corpuscular Volume 88.1 80.0-100.0 fL Mean Corpuscular Hemoglobin 29.6 28.0-32.0 pg Mean Corpuscular Hemoglobin Concent 33.6 32.0-36.0 g/dL Red Cell Distribution Width 16.3 H 11.8-14.3 % Platelet Count 244 140-450 10^3/uL Mean Platelet Volume 8.3 6.9-10.8 fL Neutrophils (%) (Auto) 56.6 37.0-80.0 % Lymphocytes (%) (Auto) 26.0 10.0-50.0 % Monocytes (%) (Auto) 13.6 H 0.0-12.0 % Eosinophils (%) (Auto) 2.9 0.0-7.0 % Basophils (%) (Auto) 0.9 0.0-2.0 % Neutrophils # (Auto) 3.8 1.6-8.6 10 ^3/uL Lymphocytes # (Auto) 1.8 0.4-5.4 10 ^3/uL Monocytes # (Auto) 0.9 0-1.3 10 ^3/uL Eosinophils # (Auto) 0.2 0-0.8 10 ^3/uL Basophils # (Auto) 0.1 0-0.2 10 ^3/uL Nucleated Red Blood Cells 0.1 % Sodium Level 140 136-145 mmol/L Potassium Level 4.3 3.5-5.1 mmol/L Chloride Level 107 98-107 mmol/L Carbon Dioxide Level 24 20-31 mmol/L Anion Gap 9 5-15 Blood Urea Nitrogen 36 H 9-23 mg/dL Creatinine 1.65 #H 0.550-1.02 mg/dL Glomerular Filtration Rate Calc 31 >90 mL/min BUN/Creatinine Ratio 21.8 H 10.0-20.0 Serum Glucose 103 74-106 mg/dL Calcium Level 9.8 8.7-10.4 mg/dL Troponin I High Sensitivity 21 </=34 ng/L Urine Color Yellow Yellow Urine Clarity Clear Clear Urine pH 5.5 5.0-9.0 Urine Specific [place] 1.011 1.001-1.035 Urine Protein Negative Negative Urine Ketones Negative Negative Urine Blood Negative Negative /uL Urine Nitrite Negative Negative Urine Bilirubin Negative Negative Urine Urobilinogen Normal Negative mg/dL Urine Leukocyte Esterase 1+ Negative /uL Urine RBC 2 0 - 4 /hpf Urine Microscopic WBC 10 H 0-5 /HPF Urine Squamous Epithelial Cells Few <5 /hpf Urine Bacteria None seen None Seen /hpf Urine Hyaline Casts Mod 0 - 2 /lpf Urine Glucose Normal Normal mg/dL Primary Diagnosis Acute urinary tract infection LENORA on CKD Plan UA mild positive Start ceftriaxone 1 g daily. Follow with the urine culture Check CRP, protocol Fluids gently current Resume home meds Hold metoprolol in view of bradycardia and hypotension For full code Lovenox for DVT prophylaxis No GI prophylaxis needed Renal diet Plan discussed with: Patient Problems List: (1) UTI (urinary tract infection) Status: Acute (2) CKD (chronic kidney disease), stage III Status: Chronic Date of Service: October 17, 2024 Billing Provider: MONROE ARNETT MD Common Visit Codes: [id number] INP/OBS CARE (MOD) MONROE ARNETT MD October 17, 2024 16:22
[2024-10-17] MEDS ORDERED: ACETAMINOPHEN 325 MG TAB PO PRN (17:45)
[2024-10-17] MEDS: LACTATED RINGER'S 1,000 ML IV ONE (17:45)
[2024-10-17] MEDS: OXYCODONE W/ ACETAMINOPHEN 5/325MG TABLET PO PRN (18:16)
[2024-10-17] MEDS: HYDROmorphone HCL 2 MG/ML VL/or syr IV PRN (20:23)
[2024-10-17] MEDS: ONDANSETRON HCL 4 MG/2 ML VIAL IV PRN (20:24)
[2024-10-17 20:57] VITALS: BP 119/66; PULSE 71; RESP 19; TEMP 98; O2SAT 99
[2024-10-17 20:59] VITALS: PULSE 82; RESP 16
[2024-10-17] MEDS: [UNRECOGNIZED DRUG - OTHER] IN SCH (22:00)
[2024-10-17] MEDS: FLUTICASONE SALMETEROL IN SCH (22:00)
[2024-10-18] VITALS (15 sets, daily range): BP systolic 85–133; BP diastolic 40–75; PULSE 57–92; RESP 14–21; TEMP 97.5–98.1; O2SAT 96–100
[2024-10-18] MEDS: SODIUM CHLOR 0.9% PF (SALINE LOCK) 10ML VIAL/SYR IV SCH (00:12)
[2024-10-18] MEDS: RANOLAZINE ER 500 MG TAB PO SCH (00:14)
[2024-10-18] MEDS: ASCORBIC ACID 500 MG TAB PO SCH (00:14)
[2024-10-18] MEDS: ATORVASTATIN 20 MG TAB PO SCH (00:14)
[2024-10-18] MEDS: PHENAZOPYRIDINE HCL 100 MG TAB PO SCH (00:15)
[2024-10-18] MEDS: CHOLECALCIFEROL (VITD3) 1,000UNIT=25mCg TAB PO SCH (00:16)
[2024-10-18] MEDS: OXYBUTYNIN CHL 5 MG TAB PO SCH (00:38)
[2024-10-18] MEDS: levoFLOXacin 500MG 100 ML IV ONE (03:10)
[2024-10-18] MEDS: FLUoxetine HCL 20 MG CAP PO SCH (10:10)
[2024-10-18] MEDS: ASPirin-EC 81 mg tab PO SCH (10:11)
[2024-10-18] MEDS: PANTOPRAZOLE 40 MG TAB PO SCH (10:11)
[2024-10-18] MEDS: DULoxetine HCL 30 MG CAP PO SCH (10:11)
[2024-10-18] MEDS: MULTIPLE VITAMIN TAB PO SCH (10:11)
[2024-10-18] MEDS: CLOPIDOGREL BISULFATE 75 MG TAB PO SCH (10:11)
[2024-10-18] MEDS: SPIRONOLACTONE 25 MG TAB PO SCH (10:12)
[2024-10-18] MEDS: levoFLOXacin 250MG 50 ML IV SCH (10:12)
[2024-10-18] MEDS: ENOXAPARIN SOD 30 MG/0.3 ML SYRINGE SC SCH (10:18)
--- NOTE | 2024-10-18 12:02 | DVHPN2 ---
Subjective 79-year-old female came back to the hospital because of complaints of" kidney pain" and lower abdominal pain Changes from previous H/P or p: Changes Objective Vitals Vital Signs Date Time Temp Pulse Resp B/P (MAP) Pulse Ox O2 Delivery O2 Flow Rate FiO2 10/18/24 10:13 73 18 117/52 10/18/24 09:00 98.1 98 98.1 10/17/24 20:59 Nasal Cannula* 3 32 Intake/Output Intake and Output 10/18/24 07:00 Intake Total 420 ml Balance 420 ml Intake Oral 420 ml General Appearance: Alert, Oriented X3, Cooperative, No acute distress Lungs: Clear to auscultation, Normal air movement Cardiovascular: Regular rate, Normal S1, Normal S2 Abdomen: Normal bowel sounds, Soft, No tenderness Extremities: No edema Medications Current Medications Medications Dose Ordered Sig/Asha Route Start Time Stop Time Status Last Admin Dose Admin Levofloxacin 50 ml @ 50 mls/hr DAILY IV 10/18/24 10:00 10/18/24 10:12 50 MLS/HR Sodium Chloride 10 ml Q8HR IV 10/17/24 22:00 10/18/24 07:30 10 ML Docusate Sodium 100 mg BIDPRN PRN PO 10/17/24 17:45 Acetaminophen 650 mg Q6HP PRN PO 10/17/24 17:45 Hydromorphone HCl 0.5 mg Q4HP PRN IV 10/17/24 17:45 10/18/24 10:13 0.5 MG Ondansetron HCl 4 mg Q4HP PRN IV 10/17/24 17:45 10/18/24 10:12 4 MG Enoxaparin Sodium 30 mg DAILY SC 10/18/24 10:00 10/18/24 10:18 30 MG Oxycodone/ Acetaminophen 1 tab Q6H PRN PO 10/17/24 17:45 10/17/24 18:16 1 TAB Ascorbic Acid 500 mg BID PO 10/17/24 22:00 10/18/24 10:10 500 MG Aspirin 81 mg DAILY PO 10/18/24 10:00 10/18/24 10:11 81 MG Atorvastatin Calcium 40 mg HS PO 10/17/24 22:00 10/18/24 00:14 40 MG Clopidogrel Bisulfate 75 mg DAILY PO 10/18/24 10:00 10/18/24 10:11 75 MG Duloxetine HCl 30 mg DAILY PO 10/18/24 10:00 10/18/24 10:11 30 MG Multivitamins 1 tab DAILY PO 10/18/24 10:00 10/18/24 10:11 1 TAB Oxybutynin Chloride 5 mg Q8HR PO 10/17/24 22:00 10/18/24 07:30 5 MG Pantoprazole Sodium 40 mg DAILY PO 10/18/24 10:00 10/18/24 10:11 40 MG Polyethylene Glycol 17 gm DAILY PRN PO 10/17/24 17:45 Ranolazine 500 mg BID PO 10/17/24 22:00 10/18/24 10:10 500 MG Spironolactone 25 mg DAILY PO 10/18/24 10:00 10/18/24 10:12 25 MG Cholecalciferol 2,000 unit BID PO 10/17/24 22:00 10/18/24 10:11 2,000 UNIT Fluoxetine HCl 20 mg DAILY PO 10/18/24 10:00 10/18/24 10:10 20 MG Patient Own Medication 1 puff BID IN 10/17/24 22:00 Phenazopyridine HCl 100 mg TID PO 10/17/24 22:00 10/18/24 07:30 100 MG Laboratory Results Laboratory Tests 10/17/24 14:28 Chemistry Test 10/17/24 14:28 Calcium Level 9.8 mg/dL (8.7-10.4) Urinalysis Test 10/17/24 14:22 Urine Color Yellow (Yellow) Urine Clarity Clear (Clear) Urine pH 5.5 (5.0-9.0) Urine Specific [place] 1.011 (1.001-1.035) Urine Protein Negative (Negative) Urine Ketones Negative (Negative) Urine Blood Negative /uL (Negative) Urine Nitrite Negative (Negative) Urine Bilirubin Negative (Negative) Urine Urobilinogen Normal mg/dL (Negative) Urine Leukocyte Esterase 1+ /uL (Negative) Urine RBC 2 /hpf (0 - 4) Urine Microscopic WBC 10 /HPF (0-5) H Urine Squamous Epithelial Cells Few /hpf (<5) Urine Bacteria None seen /hpf (None Seen) Urine Hyaline Casts Mod /lpf (0 - 2) Urine Glucose Normal mg/dL (Normal) Microbiology Microbiology Date/Time Source Procedure Growth Status 10/17/24 14:22 Voided Urine Urine Culture - Preliminary Resulted Assessment/Plan Assessment/Plan Back pain UTI Coronary artery disease with a history of CABG Ischemic cardiomyopathy ejection fraction 10% Mixed hyperlipidemia Hypertension Biventricular ICD COPD Chronic respiratory failure on home O2 History of diverticulosis Gout Plan IV antibiotics Levaquin Urine culture Med neb treatments Oxygen as needed Pain management as needed Physical therapy Continue the home medications Monitor closely The rest of the management will depend on the hospital course Full code Advance directives discussed for 20 minutes Plan discussed with: Patient Date of Service: October 18, 2024 Billing Provider: YENNY FRAIRE MD Common Visit Codes: [id number] INP/OBS CARE(HIGH) Secondary Visit Codes: [id number] CARE PLAN 30 MINUTES YENNY FRAIRE MD October 18, 2024 12:02
--- NOTE | 2024-10-18 13:26 | DVHINCON2 ---
Date of service: October 18, [address] Ramirez Reason for Consultation LENORA on CKD History of Present Illness Patient is an 79 y/o female with a hx of HTN, nephrolithiasis, recurrent UTIs, CVA, IA, CAD, CHF, COPD, gout, anemia, anxiety. Admitted for UTI, and LENORA on CKD. Pt denies known hx of CKD, and she does not follow nephrology outpt. Pt had recent hospital admission for STEMI, and last known GFR was 55 on 10/11 which was obtained through the chart. During this admission pt was found to have BUN 36, creat 1.65, GFR 31. Reports blood pressures are well controlled, however does admit to occasional hypotension. Denies NSAID use. Received consult for LENORA on CKD. Past Medical History HTN, nephrolithiasis, recurrent UTIs, CVA, IA, CAD, CHF, COPD, gout, anemia, anxiety. Allergies: Coded Allergies: Ceftriaxone (Verified Allergy, Intermediate, generalized rash, 11/08/22) TECHNICAL SUPPORT MANAGERCARLENE MEJIA Hydrocodone (Verified Allergy, Unknown, rash, 05/18/23) tylenol is okay per patient Home Meds Active Scripts Nitrofurantoin Monohydrate Mac (Macrobid) 100 Mg Cap, 100 MG PO BID for 5 Days, #10 CAP Prov:YENNY FRAIRE MD 10/14/24 Oxycodone W/ Acetaminophen (Percocet 5/325MG) 1 Tab Tb, 1 TAB PO QID, #30 TAB Prov:JANE VEGA MD 09/29/24 Phenazopyridine HCl (Eq Urinary Pain Relief Ma) 99.5 Mg Tab, 99.5 MG PO TID for 10 Days, #30 TAB Prov:PHILL LEAL RESDIENT 09/23/24 Metoprolol Succinate (Metoprolol Succinate Er) 25 Mg Tab, 1 TAB PO DAILY for 30 Days, #30 TAB 5 Refills Prov:AXEL CARABALLO RESIDENT 09/06/24 Spironolactone (Aldactone) 25 Mg Tab, 25 MG PO DAILY for 30 Days, #30 TAB Prov:BHARAT MICHELLE RESIDENT 07/22/24 Oxybutynin Chloride (Oxybutynin Chloride) 5 Mg Tab, 5 MG PO Q8HR for 30 Days, #90 TAB Prov:BHARAT MICHELLE RESIDENT 07/22/24 Atorvastatin Calcium (ATORVASTATIN CALCIUM) 20 Mg Tab, 40 MG PO HS for 30 Days, #60 TAB Prov:BHARAT MICHELLE RESIDENT 07/22/24 Acetaminophen (Acetaminophen) 325 Mg Tab, 650 MG PO TID for 10 Days, #60 TAB Prov:GRETELADRIANEBHARAT CANNON RESIDENT 07/22/24 Duloxetine Hydrochloride (Duloxetine Hydrochloride) 30 Mg Cap, 30 MG PO DAILY for 30 Days, #30 CAP Prov:WINSOME GOMEZ MD 04/29/24 Clopidogrel Bisulfate (CLOPIDOGREL) 75 Mg Tab, 75 MG PO DAILY for 30 Days, #30 TAB 5 Refills Prov:YENNY FRAIRE MD 11/26/23 Ranolazine (Ranolazine ER) 500 Mg Tab, 500 MG PO BID for 30 Days, #60 TAB 2 Refills Prov:JEBMAGAN RESIDENT 09/16/23 Reported Medications Polyethylene Glycol 3350 (Miralax) 17 Gm Pow, 17 GM PO DAILY PRN for FOR CONSTIPATION for 30 Days, #30 01/28/24 Ipratropium-Albuterol (Ipratropium [place]/Albut) 1 Yuli Yuli, 1 VIAL NEB Q6HPRN PRN for SHORTNESS OF BREATH for 13 Days, #180 09/05/23 Fluticasone-Salmeterol (Fluticasone Propionate/SA 250-50 Mcg/Dose) 1 Aer Aer, 1 PUFF INH BID for 30 Days, #60 09/05/23 Albuterol Sulfate (Albuterol Sulfate Hfa) 108 Mcg/Act Aer, 2 PUFF INH Q4HPRN PRN for dyspnea for 17 Days, #18 09/05/23 Cholecalciferol (VITAMIN D3) 2,000 Unit Tab, 1 TAB PO BID for 30 Days, #60 08/28/23 Multiple Vitamin (Tab-A-Radha) Tab, 1 TAB PO DAILY for 30 Days, #30 08/28/23 Aspirin (Aspir-Low) 81 Mg Tab, 1 TAB PO DAILY for 30 Days, #30 08/28/23 Ascorbic Acid (VITAMIN C TABLET) 500 Mg Tb, 1 TAB PO BID for 30 Days, #60 05/18/23 Pantoprazole Sodium Sesquihydr (Pantoprazole Sodium) 40 Mg Tab, 1 TAB PO DAILY 05/18/23 Fluoxetine HCl (Pmdd) (Fluoxetine HCl) 20 Mg Tab, 20 MG PO DAILY, TAB 05/30/20 Discontinued Scripts Ciprofloxacin Hcl (Cipro) 500 Mg Tab, 1 TAB PO BID, #20 TAB Prov:JANE VEGA MD 09/29/24 Cephalexin Monohydrate (Cephalexin) 500 Mg Cap, 1 CAP PO BID for 4 Days, #10 CAP Prov:PHILL LEAL RESDIENT 09/23/24 Current Medications Current Medications Medications (Trade) Dose Ordered Sig/Asha Route PRN Reason Start Time Stop Time Status Last Admin Levofloxacin 50 ml @ 50 mls/hr DAILY IV 10/18/24 10:00 10/18/24 10:12 Sodium Chloride (Saline Lock Ns) 10 ml Q8HR IV 10/17/24 22:00 10/18/24 14:00 Docusate Sodium (Colace Capsule) 100 mg BIDPRN PRN PO FOR CONSTIPATION 10/17/24 17:45 Acetaminophen (Tylenol Tablet) 650 mg Q6HP PRN PO PAIN SCALE 1-3 OR TEMP>100.4 10/17/24 17:45 Hydromorphone HCl (Dilaudid Injection) 0.5 mg Q4HP PRN IV SEVERE PAIN (7-10 PAIN SCALE) 10/17/24 17:45 10/18/24 10:13 Ondansetron HCl (Zofran) 4 mg Q4HP PRN IV NAUSEA / VOMITING 10/17/24 17:45 10/18/24 10:12 Enoxaparin Sodium (Lovenox) 30 mg DAILY SC 10/18/24 10:00 10/18/24 10:18 Oxycodone/ Acetaminophen (Percocet 5/ 325MG Tablet) 1 tab Q6H PRN PO Moderate pain 10/17/24 17:45 10/18/24 14:45 Ascorbic Acid (Vitamin C Tablet) 500 mg BID PO 10/17/24 22:00 10/18/24 10:10 Aspirin (Ecotrin Enteric Coated Tablet) 81 mg DAILY PO 10/18/24 10:00 10/18/24 10:11 Atorvastatin Calcium (Lipitor) 40 mg HS PO 10/17/24 22:00 10/18/24 00:14 Clopidogrel Bisulfate (Plavix) 75 mg DAILY PO 10/18/24 10:00 10/18/24 10:11 Duloxetine HCl (Cymbalta Capsule) 30 mg DAILY PO 10/18/24 10:00 10/18/24 10:11 Multivitamins (Mvi Tab) 1 tab DAILY PO 10/18/24 10:00 10/18/24 10:11 Oxybutynin Chloride (Ditropan Tablet) 5 mg Q8HR PO 10/17/24 22:00 10/18/24 14:44 Pantoprazole Sodium (Protonix Tablet) 40 mg DAILY PO 10/18/24 10:00 10/18/24 10:11 Polyethylene Glycol (Miralax 17GM Powder) 17 gm DAILY PRN PO FOR CONSTIPATION 10/17/24 17:45 Ranolazine (Ranexa ER) 500 mg BID PO 10/17/24 22:00 10/18/24 10:10 Spironolactone (Aldactone) 25 mg DAILY PO 10/18/24 10:00 10/18/24 10:12 Cholecalciferol (Vitamin D3 Tablet) 2,000 unit BID PO 10/17/24 22:00 10/18/24 10:11 Fluoxetine HCl (PROzac CAPSULE) 20 mg DAILY PO 10/18/24 10:00 10/18/24 10:10 Patient Own Medication 1 puff BID IN 10/17/24 22:00 Phenazopyridine HCl (Pyridium Tablet) 100 mg TID PO 10/17/24 22:00 10/18/24 14:45 Albuterol (Ventolin Medneb) 2.5 mg Q4HPRN PRN NEB SHORTNESS OF BREATH 10/18/24 12:00 10/18/24 15:00 DC 10/18/24 14:44 Ipratropium [place] (Atrovent Medneb) 0.5 mg Q4HPRN PRN NEB SHORTNESS OF BREATH 10/18/24 12:00 10/18/24 15:00 DC 10/18/24 14:44 Albuterol (Ventolin Medneb) 2.5 mg Q4HWA NEB 10/18/24 18:00 Ipratropium [place] (Atrovent Medneb) 0.5 mg Q4HWA NEB 10/18/24 18:00 Family History: Arthritis Cardiovascular disease G8 MOTHER, Onset:Unknown Cerebrovascular accident (CVA) G8 FATHER Coronary artery disease G8 MOTHER, Onset:Unknown FH: diabetes mellitus G8 MOTHER, Onset:Unknown FH: heart disease G8 MOTHER, Onset:Unknown FH: hypertension G8 MOTHER, Onset:Unknown FH: lupus 19 CHILD FH: myocardial infarction G8 MOTHER, Onset:Unknown Family history: Cardiovascular disease G8 MOTHER, Onset:Unknown G8 FATHER, Onset:Unknown Glaucoma G8 MOTHER, Onset:Unknown Review of Systems 10 systems reviewed and negative except as per HPI. H&P Exam Vital Signs/I&O Vital Sign Date Time Temp Pulse Resp B/P (MAP) Pulse Ox O2 Delivery O2 Flow Rate FiO2 10/18/24 15:40 98.0 74 18 85/58 97 2.0 98.0 10/18/24 14:44 Nasal Cannula* 28 Intake and Output 10/17/24 10/18/24 19:00 07:00 Intake Total 420 ml Balance 420 ml Intake Oral 420 ml Physical Exam Gen: Appears stated age, NAD HEENT: PERRLA, Mucous membranes moist Lungs: Bilateral air entry. No rales Heart: RRR, normal S1 and S2 Abd: normoactive bowel sounds, nontender Ext: No edema Neuro: A&O x4 Labs/Diagnostic Data Labs/Diagnostic Data Laboratory Tests Test 10/17/24 14:28 10/17/24 14:22 Range/Units White Blood Count 6.8 4.4-10.8 10^3/uL Red Blood Count 4.20 4.0-5.20 10^6/uL Hemoglobin 12.4 12.2-16.2 g/dL Hematocrit 37.0 36.0-46.0 % Mean Corpuscular Volume 88.1 80.0-100.0 fL Mean Corpuscular Hemoglobin 29.6 28.0-32.0 pg Mean Corpuscular Hemoglobin Concent 33.6 32.0-36.0 g/dL Red Cell Distribution Width 16.3 H 11.8-14.3 % Platelet Count 244 140-450 10^3/uL Mean Platelet Volume 8.3 6.9-10.8 fL Neutrophils (%) (Auto) 56.6 37.0-80.0 % Lymphocytes (%) (Auto) 26.0 10.0-50.0 % Monocytes (%) (Auto) 13.6 H 0.0-12.0 % Eosinophils (%) (Auto) 2.9 0.0-7.0 % Basophils (%) (Auto) 0.9 0.0-2.0 % Neutrophils # (Auto) 3.8 1.6-8.6 10 ^3/uL Lymphocytes # (Auto) 1.8 0.4-5.4 10 ^3/uL Monocytes # (Auto) 0.9 0-1.3 10 ^3/uL Eosinophils # (Auto) 0.2 0-0.8 10 ^3/uL Basophils # (Auto) 0.1 0-0.2 10 ^3/uL Nucleated Red Blood Cells 0.1 % Sodium Level 140 136-145 mmol/L Potassium Level 4.3 3.5-5.1 mmol/L Chloride Level 107 98-107 mmol/L Carbon Dioxide Level 24 20-31 mmol/L Anion Gap 9 5-15 Blood Urea Nitrogen 36 H 9-23 mg/dL Creatinine 1.65 #H 0.550-1.02 mg/dL Glomerular Filtration Rate Calc 31 >90 mL/min BUN/Creatinine Ratio 21.8 H 10.0-20.0 Serum Glucose 103 74-106 mg/dL Calcium Level 9.8 8.7-10.4 mg/dL Troponin I High Sensitivity 21 </=34 ng/L Urine Color Yellow Yellow Urine Clarity Clear Clear Urine pH 5.5 5.0-9.0 Urine Specific [place] 1.011 1.001-1.035 Urine Protein Negative Negative Urine Ketones Negative Negative Urine Blood Negative Negative /uL Urine Nitrite Negative Negative Urine Bilirubin Negative Negative Urine Urobilinogen Normal Negative mg/dL Urine Leukocyte Esterase 1+ Negative /uL Urine RBC 2 0 - 4 /hpf Urine Microscopic WBC 10 H 0-5 /HPF Urine Squamous Epithelial Cells Few <5 /hpf Urine Bacteria None seen None Seen /hpf Urine Hyaline Casts Mod 0 - 2 /lpf Urine Glucose Normal Normal mg/dL Plan/Recommendation IMP 1.LENORA hemodynamically mediated 2.CKD stage 3?- baseline serum creat unknown 3. + UTI 4. Hx of recurrent UTIs 5. Hx of nephrolithiasis REC - Serial chemistry panels, CBC, urine studies, phos, TSH, renal U/S - Avoidance of ACEI, ARB, contrast studies during time course of LENORA - Strict I&Os - Will continue to follow Thank you for the consult Case discussed with Dr. Armando Ha Plan discussed with: Patient AVIS ENGEL DIESEL ENGINE ASSEMBLER October 18, 2024 13:26
[2024-10-18] MEDS: IPRATROPIUM BROM 0.5 MG/2.5ML INH SOL NEB PRN (14:44)
[2024-10-18] MEDS: ALBUTEROL SULF 2.5 MG/0.5ML(0.5%) NEB SOLN NEB PRN (14:44)
--- NOTE | 2024-10-18 16:43 | DVH ---
RENAL ULTRASOUND History: LENORA Comparison: US KIDNEY on DOS: 06/19/24, US KIDNEY on DOS: 08/27/23, US KIDNEY on DOS: 07/27/23 Technique: Multiple real-time sonographic images of the kidney and bladder were obtained in conjuncti on with Doppler imaging. Findings: The bilateral kidneys are echogenic. The right kidney measures 8.8 cm and demonstrates no evidence of hydronephrosis, perinephric fluid co llection, or shadowing stone. Right renal lower pole cyst measuring 2.4 cm. The left kidney measures 9.4 cm and demonstrates no evidence of hydronephrosis, perinephric fluid col lection, or shadowing stone. Urinary bladder: Prevoid urinary bladder volume is 119 mL. Impression: 1. Echogenic and small kidneys, consistent with medical renal disease
[2024-10-18] MEDS: IPRATROPIUM BROM 0.5 MG/2.5ML INH SOL NEB SCH (18:59)
[2024-10-18] MEDS: ALBUTEROL SULF 2.5 MG/0.5ML(0.5%) NEB SOLN NEB SCH (18:59)
[2024-10-18 20:53] LABS: Creatinine, Urine 122.43 mg/dL (30.0-125.0)
[2024-10-18 21:37] LABS: Urine Bacteria FEW /hpf (None Seen); Urine Blood Negative /uL (Negative); Urine Clarity Clear (Clear); Urine Color Dark-Orange (Yellow); Urine Protein, UAD TRACE (Negative); Urine Specific Gravity 1.023 (1.001-1.035); Urine Squamous Epithelial Cell MOD /hpf (<5); Urine Urobilinogen 6 mg/dL (Negative); Urine WBC 1 /HPF (0-5)
[2024-10-19] VITALS (20 sets, daily range): BP systolic 103–134; BP diastolic 51–62; PULSE 60–81; RESP 16–22; TEMP 96.8–98.6; O2SAT 95–100
[2024-10-19 07:01] LABS: Basophils # (auto) 0 10 ^3/uL (0-0.2); Basophils % (auto) 0.9 % (0.0-2.0); Eosinophils # (auto) 0.2 10 ^3/uL (0-0.8); Hematocrit 34.5 % (36.0-46.0); Hemoglobin 11.6 g/dL (12.2-16.2); Lymphocytes # (auto) 1.7 10 ^3/uL (0.4-5.4); Lymphocytes % (auto) 33.6 % (10.0-50.0); Mean Corpuscular Hemoglobin 29.6 pg (28.0-32.0); Mean Corpuscular Hgb Conc. 33.6 g/dL (32.0-36.0); Mean Corpuscular Volume 88.2 fL (80.0-100.0); Monocytes # (auto) 0.9 10 ^3/uL (0-1.3); Monocytes % (auto) 17.3 % (0.0-12.0); Neutrophils # (auto) 2.1 10 ^3/uL (1.6-8.6); Neutrophils % (auto) 43.2 % (37.0-80.0); Nucleated Red Blood Cells % 0.3 %; Platelet Count (auto) 222 10^3/uL (140-450); Red Blood Cells 3.91 10^6/uL (4.0-5.20); White Blood Cell 4.9 10^3/uL (4.4-10.8)
[2024-10-19 07:03] LABS: Albumin 3.9 g/dL (3.2-4.8); Alkaline Phosphatase 60 U/L (46-116); Anion Gap 4 (5-15); Aspartate Aminotransferase 14 U/L (13-40); BUN/Creatinine Ratio 18.3 (10.0-20.0); Blood Urea Nitrogen 23 mg/dL (9-23); Calcium 8.9 mg/dL (8.7-10.4); Carbon Dioxide 29 mmol/L (20-31); Glucose 88 mg/dL (74-106); Potassium 4.4 mmol/L (3.5-5.1); Sodium 141 mmol/L (136-145); Uric Acid 4.8 mg/dL (3.1-7.8)
[2024-10-19 07:04] LABS: Bilirubin, Total 0.4 mg/dL (0.2-1.0)
[2024-10-19 07:22] LABS: Alanine Aminotransferase < 9 U/L (7-40); Chloride 108 mmol/L (98-107); Total Protein 5.6 g/dL (5.7-8.2)
--- NOTE | 2024-10-19 11:40 | DVHPN2 ---
Subjective No new complaints Changes from previous H/P or p: Changes Objective Vitals Vital Signs Date Time Temp Pulse Resp B/P (MAP) Pulse Ox O2 Delivery O2 Flow Rate FiO2 10/19/24 11:14 76 16 120/62 10/19/24 10:00 96 Nasal Cannula 2.0 10/19/24 10:00 28 10/19/24 09:00 98.5 98.5 Intake/Output Intake and Output 10/19/24 07:00 Intake Total 1224 ml Output Total 4 ml Balance 1220 ml Intake Oral 1174 ml IV Total 50 ml Output Urine Total 4 ml # Voids 2 General Appearance: Alert, Oriented X3, Cooperative, No acute distress Lungs: Clear to auscultation, Normal air movement Cardiovascular: Regular rate, Normal S1, Normal S2 Abdomen: Normal bowel sounds, Soft, No tenderness Extremities: No edema Medications Current Medications Medications Dose Ordered Sig/Asha Route Start Time Stop Time Status Last Admin Dose Admin Levofloxacin 50 ml @ 50 mls/hr DAILY IV 10/18/24 10:00 10/19/24 09:43 50 MLS/HR Sodium Chloride 10 ml Q8HR IV 10/17/24 22:00 10/19/24 05:22 10 ML Docusate Sodium 100 mg BIDPRN PRN PO 10/17/24 17:45 Acetaminophen 650 mg Q6HP PRN PO 10/17/24 17:45 Hydromorphone HCl 0.5 mg Q4HP PRN IV 10/17/24 17:45 10/19/24 11:14 0.5 MG Ondansetron HCl 4 mg Q4HP PRN IV 10/17/24 17:45 10/19/24 11:14 4 MG Enoxaparin Sodium 30 mg DAILY SC 10/18/24 10:00 10/19/24 09:43 30 MG Oxycodone/ Acetaminophen 1 tab Q6H PRN PO 10/17/24 17:45 10/18/24 14:45 1 TAB Ascorbic Acid 500 mg BID PO 10/17/24 22:00 10/19/24 09:43 500 MG Aspirin 81 mg DAILY PO 10/18/24 10:00 10/19/24 09:42 81 MG Atorvastatin Calcium 40 mg HS PO 10/17/24 22:00 10/18/24 21:59 40 MG Clopidogrel Bisulfate 75 mg DAILY PO 10/18/24 10:00 10/19/24 09:42 75 MG Duloxetine HCl 30 mg DAILY PO 10/18/24 10:00 10/19/24 09:42 30 MG Multivitamins 1 tab DAILY PO 10/18/24 10:00 10/19/24 09:42 1 TAB Oxybutynin Chloride 5 mg Q8HR PO 10/17/24 22:00 10/19/24 05:22 5 MG Pantoprazole Sodium 40 mg DAILY PO 10/18/24 10:00 10/19/24 09:43 40 MG Polyethylene Glycol 17 gm DAILY PRN PO 10/17/24 17:45 Ranolazine 500 mg BID PO 10/17/24 22:00 10/19/24 09:42 500 MG Spironolactone 25 mg DAILY PO 10/18/24 10:00 10/19/24 09:43 25 MG Cholecalciferol 2,000 unit BID PO 10/17/24 22:00 10/19/24 09:42 2,000 UNIT Fluoxetine HCl 20 mg DAILY PO 10/18/24 10:00 10/19/24 09:42 20 MG Patient Own Medication 1 puff BID IN 10/17/24 22:00 Phenazopyridine HCl 100 mg TID PO 10/17/24 22:00 10/19/24 05:22 100 MG Albuterol 2.5 mg Q4HWA [facility] 10/18/24 18:00 10/19/24 06:14 2.5 MG Ipratropium [place] 0.5 mg Q4HWA [facility] 10/18/24 18:00 10/19/24 06:14 0.5 MG Laboratory Results Laboratory Tests 10/19/24 06:10 Chemistry Test 10/19/24 06:10 Albumin 3.9 g/dL (3.2-4.8) Calcium Level 8.9 mg/dL (8.7-10.4) Phosphorus Level 3.0 mg/dL (2.4-5.1) Total Protein 5.6 g/dL (5.7-8.2) L LFT Test 10/19/24 06:10 Alanine Aminotransferase (ALT) < 9 U/L (7-40) Alkaline Phosphatase 60 U/L (46-116) Aspartate Amino Transferase (AST) 14 U/L (13-40) Total Bilirubin 0.4 mg/dL (0.2-1.0) HgA1c, TSH Test 10/19/24 06:10 Thyroid Stimulating Hormone (TSH) 3.52 uIU/mL (0.55-4.78) Urinalysis Test 10/17/24 14:22 10/18/24 20:05 Urine Hyaline Casts Mod /lpf (0 - 2) Urine Color Dark-orange (Yellow) Urine Clarity Clear (Clear) Urine pH 6.0 (5.0-9.0) Urine Specific [place] 1.023 (1.001-1.035) Urine Protein Trace (Negative) H Urine Ketones Negative (Negative) Urine Blood Negative /uL (Negative) Urine Nitrite 2+ (Negative) H Urine Bilirubin 2+ (Negative) H Urine Urobilinogen 6 mg/dL (Negative) Urine Leukocyte Esterase Negative /uL (Negative) Urine RBC 1 /hpf (0 - 4) Urine Microscopic WBC 1 /HPF (0-5) Urine Squamous Epithelial Cells Mod /hpf (<5) Urine Bacteria Few /hpf (None Seen) H Urine Creatinine 122.43 mg/dL (30.0-125.0) Urine Sodium 34 mmol/L (40-220) L Urine Glucose Normal mg/dL (Normal) Urine Total Protein 17.0 mg/dL (1-14) H Microbiology Microbiology Date/Time Source Procedure Growth Status 10/17/24 14:22 Voided Urine Urine Culture - Final Complete Assessment/Plan Assessment/Plan Back pain UTI Coronary artery disease with a history of CABG Ischemic cardiomyopathy ejection fraction 10% Mixed hyperlipidemia Hypertension Biventricular ICD COPD Chronic respiratory failure on home O2 History of diverticulosis Gout Plan IV antibiotics Levaquin Urine culture Med neb treatments Oxygen as needed Pain management as needed Physical therapy Continue the home medications Monitor closely The rest of the management will depend on the hospital course Full code Advance directives discussed for 20 minutes 10/19/2024: Continue the current management Urine culture showing Gram-negative mixed zach Continue IV Levaquin Physical therapy evaluation Monitor closely Plan discussed with: Patient My Orders Orders - YENNY FRAIRE MD Procedure Category Date Status Time Pt Request For Service PT 10/18/24 Logged 12:00 Albuterol Medneb PHA 10/18/24 In Process (Ventolin Medneb) 18:00 Ipratropium Medneb PHA 10/18/24 In Process (Atrovent Medneb) 18:00 Date of Service: October 19, 2024 Billing Provider: YENNY FRAIRE MD Common Visit Codes: [id number] INP/OBS CARE(HIGH) YENNY FRAIRE MD October 19, 2024 11:40
--- NOTE | 2024-10-19 14:38 | DVHPN2 ---
Progress Note - Dictate Date Seen: October 19, 2024 Medical Necessity Reason Pt with a Central, PICC or Fol: No Subjective Resting comfortably this afternoon vital signs Vital Sign Date Time Temp Pulse Resp B/P (MAP) Pulse Ox O2 Delivery O2 Flow Rate FiO2 10/19/24 14:18 71 18 100 10/19/24 14:11 Nasal Cannula 2.0 10/19/24 14:11 28 10/19/24 13:00 96.8 103/55 (71) 96.8 Total Intake and Output 10/18/24 10/18/24 10/19/24 15:00 23:00 07:00 Intake Total 50 ml 724 ml 450 ml Output Total 4 ml Balance 50 ml 720 ml 450 ml medications Current Medications Medications Dose Ordered Sig/Asha Route Start Time Stop Time Status Last Admin Dose Admin Levofloxacin 50 ml @ 50 mls/hr DAILY IV 10/18/24 10:00 10/19/24 09:43 50 MLS/HR Sodium Chloride 10 ml Q8HR IV 10/17/24 22:00 10/19/24 05:22 10 ML Docusate Sodium 100 mg BIDPRN PRN PO 10/17/24 17:45 Acetaminophen 650 mg Q6HP PRN PO 10/17/24 17:45 Hydromorphone HCl 0.5 mg Q4HP PRN IV 10/17/24 17:45 10/19/24 11:14 0.5 MG Ondansetron HCl 4 mg Q4HP PRN IV 10/17/24 17:45 10/19/24 11:14 4 MG Enoxaparin Sodium 30 mg DAILY SC 10/18/24 10:00 10/19/24 09:43 30 MG Oxycodone/ Acetaminophen 1 tab Q6H PRN PO 10/17/24 17:45 10/18/24 14:45 1 TAB Ascorbic Acid 500 mg BID PO 10/17/24 22:00 10/19/24 09:43 500 MG Aspirin 81 mg DAILY PO 10/18/24 10:00 10/19/24 09:42 81 MG Atorvastatin Calcium 40 mg HS PO 10/17/24 22:00 10/18/24 21:59 40 MG Clopidogrel Bisulfate 75 mg DAILY PO 10/18/24 10:00 10/19/24 09:42 75 MG Duloxetine HCl 30 mg DAILY PO 10/18/24 10:00 10/19/24 09:42 30 MG Multivitamins 1 tab DAILY PO 10/18/24 10:00 10/19/24 09:42 1 TAB Oxybutynin Chloride 5 mg Q8HR PO 10/17/24 22:00 10/19/24 05:22 5 MG Pantoprazole Sodium 40 mg DAILY PO 10/18/24 10:00 10/19/24 09:43 40 MG Polyethylene Glycol 17 gm DAILY PRN PO 10/17/24 17:45 Ranolazine 500 mg BID PO 10/17/24 22:00 10/19/24 09:42 500 MG Spironolactone 25 mg DAILY PO 10/18/24 10:00 10/19/24 09:43 25 MG Cholecalciferol 2,000 unit BID PO 10/17/24 22:00 10/19/24 09:42 2,000 UNIT Fluoxetine HCl 20 mg DAILY PO 10/18/24 10:00 10/19/24 09:42 20 MG Patient Own Medication 1 puff BID IN 10/17/24 22:00 Phenazopyridine HCl 100 mg TID PO 10/17/24 22:00 10/19/24 05:22 100 MG Albuterol 2.5 mg Q4HWA [facility] 10/18/24 18:00 10/19/24 14:08 2.5 MG Ipratropium [place] 0.5 mg Q4HWA [facility] 10/18/24 18:00 10/19/24 14:08 0.5 MG objective Gen: nad heent: nc/at, mmm lungs: cta anteriorly cvs: no rub abd: soft, bowel sounds audible ext: no edema skin: no rash neuro: alert and oriented laboratory and microbiology Laboratory Tests 10/19/24 06:10 Test 10/19/24 06:10 Range/Units Serum Glucose 88 74-106 mg/dL Assessment/Plan IMP 1.LENORA hemodynamically mediated - prerenal state, low FeNa 2.CKD stage 3a 3. + UTI 4. Hx of recurrent UTIs 5. Hx of nephrolithiasis REC - brisk improvement in kidney function - approaching baseline creatinine of around one - clinically stable for discharge from Nephrology perspective - we will follow up in outpatient CKD Clinic two weeks post discharge. Plan discussed with: Other REYES MEYERS MD October 19, 2024 14:38
[2024-10-20] VITALS (19 sets, daily range): BP systolic 109–150; BP diastolic 45–65; PULSE 59–82; RESP 14–22; TEMP 97.2–98.3; O2SAT 93–100
--- NOTE | 2024-10-20 08:58 | DVHPN2 ---
Subjective She is complaining of a dry cough now She feels more short of breath Changes from previous H/P or p: Changes Objective Vitals Vital Signs Date Time Temp Pulse Resp B/P (MAP) Pulse Ox O2 Delivery O2 Flow Rate FiO2 10/20/24 07:08 79 18 98 10/20/24 07:03 Nasal Cannula 3.0 10/20/24 07:03 32 10/20/24 05:48 121/69 10/20/24 05:00 97.7 97.7 Intake/Output Intake and Output 10/20/24 07:00 Intake Total 854 ml Balance 854 ml Intake Oral 804 ml IV Total 50 ml # Voids 5 General Appearance: Alert, Oriented X3, Cooperative, No acute distress Lungs: Clear to auscultation, Normal air movement Cardiovascular: Regular rate, Normal S1, Normal S2 Abdomen: Normal bowel sounds, Soft, No tenderness Extremities: No edema Medications Current Medications Medications Dose Ordered Sig/Asha Route Start Time Stop Time Status Last Admin Dose Admin Levofloxacin 50 ml @ 50 mls/hr DAILY IV 10/18/24 10:00 10/19/24 09:43 50 MLS/HR Sodium Chloride 10 ml Q8HR IV 10/17/24 22:00 10/20/24 05:21 10 ML Docusate Sodium 100 mg BIDPRN PRN PO 10/17/24 17:45 Acetaminophen 650 mg Q6HP PRN PO 10/17/24 17:45 Hydromorphone HCl 0.5 mg Q4HP PRN IV 10/17/24 17:45 10/20/24 05:18 0.5 MG Ondansetron HCl 4 mg Q4HP PRN IV 10/17/24 17:45 10/20/24 05:17 4 MG Enoxaparin Sodium 30 mg DAILY SC 10/18/24 10:00 10/19/24 09:43 30 MG Oxycodone/ Acetaminophen 1 tab Q6H PRN PO 10/17/24 17:45 10/18/24 14:45 1 TAB Ascorbic Acid 500 mg BID PO 10/17/24 22:00 10/19/24 22:10 500 MG Aspirin 81 mg DAILY PO 10/18/24 10:00 10/19/24 09:42 81 MG Atorvastatin Calcium 40 mg HS PO 10/17/24 22:00 10/19/24 22:04 40 MG Clopidogrel Bisulfate 75 mg DAILY PO 10/18/24 10:00 10/19/24 09:42 75 MG Duloxetine HCl 30 mg DAILY PO 10/18/24 10:00 10/19/24 09:42 30 MG Multivitamins 1 tab DAILY PO 10/18/24 10:00 10/19/24 09:42 1 TAB Oxybutynin Chloride 5 mg Q8HR PO 10/17/24 22:00 10/20/24 05:17 5 MG Pantoprazole Sodium 40 mg DAILY PO 10/18/24 10:00 10/19/24 09:43 40 MG Polyethylene Glycol 17 gm DAILY PRN PO 10/17/24 17:45 Ranolazine 500 mg BID PO 10/17/24 22:00 10/19/24 22:04 500 MG Spironolactone 25 mg DAILY PO 10/18/24 10:00 10/19/24 09:43 25 MG Cholecalciferol 2,000 unit BID PO 10/17/24 22:00 10/19/24 22:04 2,000 UNIT Fluoxetine HCl 20 mg DAILY PO 10/18/24 10:00 10/19/24 09:42 20 MG Patient Own Medication 1 puff BID IN 10/17/24 22:00 Phenazopyridine HCl 100 mg TID PO 10/17/24 22:00 10/20/24 05:17 100 MG Albuterol 2.5 mg Q4HWA [facility] 10/18/24 18:00 10/20/24 07:03 2.5 MG Ipratropium [place] 0.5 mg Q4HWA [facility] 10/18/24 18:00 10/20/24 07:03 0.5 MG Laboratory Results Laboratory Tests 10/19/24 06:10 Urinalysis Test 10/17/24 14:22 10/18/24 20:05 Urine Hyaline Casts Mod /lpf (0 - 2) Urine Color Dark-orange (Yellow) Urine Clarity Clear (Clear) Urine pH 6.0 (5.0-9.0) Urine Specific [place] 1.023 (1.001-1.035) Urine Protein Trace (Negative) H Urine Ketones Negative (Negative) Urine Blood Negative /uL (Negative) Urine Nitrite 2+ (Negative) H Urine Bilirubin 2+ (Negative) H Urine Urobilinogen 6 mg/dL (Negative) Urine Leukocyte Esterase Negative /uL (Negative) Urine RBC 1 /hpf (0 - 4) Urine Microscopic WBC 1 /HPF (0-5) Urine Squamous Epithelial Cells Mod /hpf (<5) Urine Bacteria Few /hpf (None Seen) H Urine Creatinine 122.43 mg/dL (30.0-125.0) Urine Sodium 34 mmol/L (40-220) L Urine Glucose Normal mg/dL (Normal) Urine Total Protein 17.0 mg/dL (1-14) H Microbiology Microbiology Date/Time Source Procedure Growth Status 10/17/24 14:22 Voided Urine Urine Culture - Final Complete Assessment/Plan Assessment/Plan Back pain UTI Coronary artery disease with a history of CABG Ischemic cardiomyopathy ejection fraction 10% Mixed hyperlipidemia Hypertension Biventricular ICD COPD Chronic respiratory failure on home O2 History of diverticulosis Gout Plan IV antibiotics Levaquin Urine culture Med neb treatments Oxygen as needed Pain management as needed Physical therapy Continue the home medications Monitor closely The rest of the management will depend on the hospital course Full code Advance directives discussed for 20 minutes 10/19/2024: Continue the current management Urine culture showing Gram-negative mixed zach Continue IV Levaquin Physical therapy evaluation Monitor closely 10/20/2024: COPD: Get a chest x-ray, start IV steroids Continue IV antibiotics Levaquin Oxygen as needed Med neb treatments Plan discussed with: Patient My Orders Orders - YENNY FRAIRE MD Procedure Category Date Status Time Chest Portable XY 10/20/24 Transmitted 08:56 Date of Service: October 20, 2024 Billing Provider: YENNY FRAIRE MD Common Visit Codes: [id number] INP/OBS CARE(HIGH) YENNY FRAIRE MD October 20, 2024 08:58
--- NOTE | 2024-10-20 11:06 | DVH ---
EXAM: XY CHEST PORTABLE Indication: cough Technique: Single frontal view of the chest was obtained Comparison: XY CHEST PORTABLE on DOS: 10/17/24, XY CHEST PORTABLE on DOS: 10/09/24, XY CHEST XRAY 1 VIE W on DOS: 09/28/24, XY CHEST PORTABLE on DOS: 09/25/24, XY CHEST PORTABLE on DOS: 09/20/24 FINDINGS: Lines and Tubes: Cardiac pacemaker projects over left chest wall. Lungs: No focal consolidation. Mild pulmonary vascular congestion. Pleura: No effusion. No pneumothorax. Cardiomediastinal contours: Mild cardiomegaly. Bones: No acute osseous abnormality. IMPRESSION: Mild pulmonary vascular congestion.
[2024-10-20] MEDS: methylPREDNISolone SOD SUCC 40 MG/ML VL IV SCH (11:14)
--- NOTE | 2024-10-20 18:42 | DVHPN2 ---
Progress Note - Dictate Date Seen: October 20, 2024 Medical Necessity Reason Pt with a Central, PICC or Fol: No Subjective Patient seen earlier this morning, lying supine no acute distress vital signs Vital Sign Date Time Temp Pulse Resp B/P (MAP) Pulse Ox O2 Delivery O2 Flow Rate FiO2 10/20/24 18:38 82 18 118/65 10/20/24 17:00 98.3 98 98.3 10/20/24 14:39 Nasal Cannula 3.0 10/20/24 14:39 32 Total Intake and Output 10/19/24 10/19/24 10/20/24 15:00 23:00 07:00 Intake Total 50 ml 488 ml 316 ml Balance 50 ml 488 ml 316 ml medications Current Medications Medications Dose Ordered Sig/Asha Route Start Time Stop Time Status Last Admin Dose Admin Levofloxacin 50 ml @ 50 mls/hr DAILY IV 10/18/24 10:00 10/20/24 09:00 50 MLS/HR Sodium Chloride 10 ml Q8HR IV 10/17/24 22:00 10/20/24 13:24 10 ML Docusate Sodium 100 mg BIDPRN PRN PO 10/17/24 17:45 Acetaminophen 650 mg Q6HP PRN PO 10/17/24 17:45 Hydromorphone HCl 0.5 mg Q4HP PRN IV 10/17/24 17:45 10/20/24 18:38 0.5 MG Ondansetron HCl 4 mg Q4HP PRN IV 10/17/24 17:45 10/20/24 18:36 4 MG Enoxaparin Sodium 30 mg DAILY SC 10/18/24 10:00 10/20/24 09:03 30 MG Oxycodone/ Acetaminophen 1 tab Q6H PRN PO 10/17/24 17:45 10/18/24 14:45 1 TAB Ascorbic Acid 500 mg BID PO 10/17/24 22:00 10/20/24 09:02 500 MG Aspirin 81 mg DAILY PO 10/18/24 10:00 10/20/24 09:02 81 MG Atorvastatin Calcium 40 mg HS PO 10/17/24 22:00 10/19/24 22:04 40 MG Clopidogrel Bisulfate 75 mg DAILY PO 10/18/24 10:00 10/20/24 09:01 75 MG Duloxetine HCl 30 mg DAILY PO 10/18/24 10:00 10/20/24 09:02 30 MG Multivitamins 1 tab DAILY PO 10/18/24 10:00 10/20/24 09:02 1 TAB Oxybutynin Chloride 5 mg Q8HR PO 10/17/24 22:00 10/20/24 13:22 5 MG Pantoprazole Sodium 40 mg DAILY PO 10/18/24 10:00 10/20/24 09:01 40 MG Polyethylene Glycol 17 gm DAILY PRN PO 10/17/24 17:45 Ranolazine 500 mg BID PO 10/17/24 22:00 10/20/24 09:00 500 MG Spironolactone 25 mg DAILY PO 10/18/24 10:00 10/20/24 09:01 25 MG Cholecalciferol 2,000 unit BID PO 10/17/24 22:00 10/20/24 09:01 2,000 UNIT Fluoxetine HCl 20 mg DAILY PO 10/18/24 10:00 10/20/24 09:01 20 MG Patient Own Medication 1 puff BID IN 10/17/24 22:00 Phenazopyridine HCl 100 mg TID PO 10/17/24 22:00 10/20/24 13:22 100 MG Albuterol 2.5 mg Q4HWA [facility] 10/18/24 18:00 10/20/24 14:39 2.5 MG Ipratropium [place] 0.5 mg Q4HWA [facility] 10/18/24 18:00 10/20/24 14:39 0.5 MG Methylprednisolone Sodium Succinate 40 mg BID IV 10/20/24 10:00 10/20/24 11:14 40 MG objective Gen: nad heent: nc/at, mmm lungs: cta anteriorly cvs: no rub abd: soft, bowel sounds audible ext: no edema skin: no rash neuro: alert and oriented laboratory and microbiology Laboratory Tests 10/19/24 06:10 Test 10/19/24 06:10 Range/Units Serum Glucose 88 74-106 mg/dL Assessment/Plan IMP 1.LENORA hemodynamically mediated - prerenal state, low FeNa 2.CKD stage 3a 3. + UTI 4. Hx of recurrent UTIs 5. Hx of nephrolithiasis REC - resolving acute kidney injury, plan to repeat basic chemistry panel in a.m. Dietary Evaluation Review Comments: Renal diet with protein restriction at 60g Expected Outcomes/Goals: maintain wt, less uremic symptoms. Plan discussed with: REYES Lynn MD October 20, 2024 18:42
[2024-10-21] VITALS (19 sets, daily range): BP systolic 97–122; BP diastolic 48–64; PULSE 68–89; RESP 16–22; TEMP 98–98.5; O2SAT 92–98
[2024-10-21 06:52] LABS: Anion Gap 7 (5-15); Calcium 9.6 mg/dL (8.7-10.4); Carbon Dioxide 25 mmol/L (20-31); Potassium 4.6 mmol/L (3.5-5.1); Sodium 140 mmol/L (136-145)
[2024-10-21 06:58] LABS: BUN/Creatinine Ratio 17.7 (10.0-20.0); Blood Urea Nitrogen 22 mg/dL (9-23)
[2024-10-21 07:05] LABS: Chloride 108 mmol/L (98-107); Glucose 217 mg/dL (74-106)
--- NOTE | 2024-10-21 09:09 | DVHPN2 ---
Subjective Her cough is better Chest x-ray did not show pneumonia Changes from previous H/P or p: Changes Objective Vitals Vital Signs Date Time Temp Pulse Resp B/P (MAP) Pulse Ox O2 Delivery O2 Flow Rate FiO2 10/21/24 08:37 77 16 109/59 96 2.0 28 10/21/24 06:44 Nasal Cannula 10/21/24 05:00 98.0 98.0 Intake/Output Intake and Output 10/21/24 07:00 Intake Total 1622 ml Balance 1622 ml Intake Oral 1572 ml IV Total 50 ml # Voids 7 General Appearance: Alert, Oriented X3, Cooperative, No acute distress Lungs: Clear to auscultation, Normal air movement Cardiovascular: Regular rate, Normal S1, Normal S2 Abdomen: Normal bowel sounds, Soft, No tenderness Extremities: No edema Medications Current Medications Medications Dose Ordered Sig/Asha Route Start Time Stop Time Status Last Admin Dose Admin Levofloxacin 50 ml @ 50 mls/hr DAILY IV 10/18/24 10:00 10/20/24 09:00 50 MLS/HR Sodium Chloride 10 ml Q8HR IV 10/17/24 22:00 10/21/24 05:38 10 ML Docusate Sodium 100 mg BIDPRN PRN PO 10/17/24 17:45 Acetaminophen 650 mg Q6HP PRN PO 10/17/24 17:45 Hydromorphone HCl 0.5 mg Q4HP PRN IV 10/17/24 17:45 10/21/24 07:07 0.5 MG Ondansetron HCl 4 mg Q4HP PRN IV 10/17/24 17:45 10/21/24 07:06 4 MG Enoxaparin Sodium 30 mg DAILY SC 10/18/24 10:00 10/20/24 09:03 30 MG Oxycodone/ Acetaminophen 1 tab Q6H PRN PO 10/17/24 17:45 10/18/24 14:45 1 TAB Ascorbic Acid 500 mg BID PO 10/17/24 22:00 10/20/24 21:01 500 MG Aspirin 81 mg DAILY PO 10/18/24 10:00 10/20/24 09:02 81 MG Atorvastatin Calcium 40 mg HS PO 10/17/24 22:00 10/20/24 21:00 40 MG Clopidogrel Bisulfate 75 mg DAILY PO 10/18/24 10:00 10/20/24 09:01 75 MG Duloxetine HCl 30 mg DAILY PO 10/18/24 10:00 10/20/24 09:02 30 MG Multivitamins 1 tab DAILY PO 10/18/24 10:00 10/20/24 09:02 1 TAB Oxybutynin Chloride 5 mg Q8HR PO 10/17/24 22:00 10/21/24 05:38 5 MG Pantoprazole Sodium 40 mg DAILY PO 10/18/24 10:00 10/20/24 09:01 40 MG Polyethylene Glycol 17 gm DAILY PRN PO 10/17/24 17:45 Ranolazine 500 mg BID PO 10/17/24 22:00 10/20/24 21:00 500 MG Spironolactone 25 mg DAILY PO 10/18/24 10:00 10/20/24 09:01 25 MG Cholecalciferol 2,000 unit BID PO 10/17/24 22:00 10/20/24 21:01 2,000 UNIT Fluoxetine HCl 20 mg DAILY PO 10/18/24 10:00 10/20/24 09:01 20 MG Patient Own Medication 1 puff BID IN 10/17/24 22:00 Phenazopyridine HCl 100 mg TID PO 10/17/24 22:00 10/21/24 05:38 100 MG Albuterol 2.5 mg Q4HWA [facility] 10/18/24 18:00 10/21/24 06:42 2.5 MG Ipratropium [place] 0.5 mg Q4HWA [facility] 10/18/24 18:00 10/21/24 06:43 0.5 MG Methylprednisolone Sodium Succinate 40 mg BID IV 10/20/24 10:00 10/20/24 21:12 40 MG Laboratory Results Laboratory Tests 10/19/24 06:10 10/21/24 05:45 Chemistry Test 10/21/24 05:45 Calcium Level 9.6 mg/dL (8.7-10.4) Urinalysis Test 10/17/24 14:22 10/18/24 20:05 Urine Hyaline Casts Mod /lpf (0 - 2) Urine Color Dark-orange (Yellow) Urine Clarity Clear (Clear) Urine pH 6.0 (5.0-9.0) Urine Specific [place] 1.023 (1.001-1.035) Urine Protein Trace (Negative) H Urine Ketones Negative (Negative) Urine Blood Negative /uL (Negative) Urine Nitrite 2+ (Negative) H Urine Bilirubin 2+ (Negative) H Urine Urobilinogen 6 mg/dL (Negative) Urine Leukocyte Esterase Negative /uL (Negative) Urine RBC 1 /hpf (0 - 4) Urine Microscopic WBC 1 /HPF (0-5) Urine Squamous Epithelial Cells Mod /hpf (<5) Urine Bacteria Few /hpf (None Seen) H Urine Creatinine 122.43 mg/dL (30.0-125.0) Urine Sodium 34 mmol/L (40-220) L Urine Glucose Normal mg/dL (Normal) Urine Total Protein 17.0 mg/dL (1-14) H Microbiology Microbiology Date/Time Source Procedure Growth Status 10/17/24 14:22 Voided Urine Urine Culture - Final Complete Assessment/Plan Assessment/Plan Back pain UTI Coronary artery disease with a history of CABG Ischemic cardiomyopathy ejection fraction 10% Mixed hyperlipidemia Hypertension Biventricular ICD COPD Chronic respiratory failure on home O2 History of diverticulosis Gout Plan IV antibiotics Levaquin Urine culture Med neb treatments Oxygen as needed Pain management as needed Physical therapy Continue the home medications Monitor closely The rest of the management will depend on the hospital course Full code Advance directives discussed for 20 minutes 10/19/2024: Continue the current management Urine culture showing Gram-negative mixed zach Continue IV Levaquin Physical therapy evaluation Monitor closely 10/20/2024: COPD: Get a chest x-ray, start IV steroids Continue IV antibiotics Levaquin Oxygen as needed Med neb treatments 10/21/2024: Chest x-ray is negative Continue the current management with steroids and IV antibiotics and med neb treatments and oxygen as needed Monitor closely Plan discussed with: Patient Date of Service: October 21, 2024 Billing Provider: YENNY FRAIRE MD Common Visit Codes: [id number] INP/OBS CARE(HIGH) YENNY FRAIRE MD October 21, 2024 09:09
[2024-10-21] MEDS: DOCUSATE SOD 100 MG CAP PO PRN (21:26)
[2024-10-22] VITALS (18 sets, daily range): BP systolic 102–129; BP diastolic 55–81; PULSE 63–101; RESP 14–18; TEMP 98–98.8; O2SAT 92–99
[2024-10-22] MEDS: POLYETHYLENE GLYCOL 17 GM PWDR PO PRN (10:07)
--- NOTE | 2024-10-22 15:50 | DVHPN2 ---
Subjective c/o SOB and wheezing c/o back pain c/o dysuria Changes from previous H/P or p: Changes Objective Vitals Vital Signs Date Time Temp Pulse Resp B/P (MAP) Pulse Ox O2 Delivery O2 Flow Rate FiO2 10/22/24 14:44 101 18 112/81 10/22/24 14:10 96 10/22/24 12:50 98.8 98.8 10/22/24 10:00 Nasal Cannula* 2 28 Intake/Output Intake and Output 10/22/24 07:00 Intake Total 850 ml Balance 850 ml Intake Oral 800 ml IV Total 50 ml # Voids 5 General Appearance: Alert, Oriented X3, Cooperative, No acute distress Lungs: Clear to auscultation, Normal air movement Cardiovascular: Regular rate, Normal S1, Normal S2 Abdomen: Normal bowel sounds, Soft, No tenderness Extremities: No edema Medications Current Medications Medications Dose Ordered Sig/Asha Route Start Time Stop Time Status Last Admin Dose Admin Levofloxacin 50 ml @ 50 mls/hr DAILY IV 10/18/24 10:00 10/22/24 10:11 50 MLS/HR Sodium Chloride 10 ml Q8HR IV 10/17/24 22:00 10/22/24 14:43 10 ML Docusate Sodium 100 mg BIDPRN PRN PO 10/17/24 17:45 10/21/24 21:26 100 MG Acetaminophen 650 mg Q6HP PRN PO 10/17/24 17:45 Hydromorphone HCl 0.5 mg Q4HP PRN IV 10/17/24 17:45 10/22/24 14:44 0.5 MG Ondansetron HCl 4 mg Q4HP PRN IV 10/17/24 17:45 10/22/24 14:44 4 MG Enoxaparin Sodium 30 mg DAILY SC 10/18/24 10:00 10/22/24 10:12 30 MG Oxycodone/ Acetaminophen 1 tab Q6H PRN PO 10/17/24 17:45 10/18/24 14:45 1 TAB Ascorbic Acid 500 mg BID PO 10/17/24 22:00 10/22/24 10:08 500 MG Aspirin 81 mg DAILY PO 10/18/24 10:00 10/22/24 10:07 81 MG Atorvastatin Calcium 40 mg HS PO 10/17/24 22:00 10/21/24 21:27 40 MG Clopidogrel Bisulfate 75 mg DAILY PO 10/18/24 10:00 10/22/24 10:08 75 MG Duloxetine HCl 30 mg DAILY PO 10/18/24 10:00 10/22/24 10:18 30 MG Multivitamins 1 tab DAILY PO 10/18/24 10:00 10/22/24 10:08 1 TAB Oxybutynin Chloride 5 mg Q8HR PO 10/17/24 22:00 10/22/24 14:43 5 MG Pantoprazole Sodium 40 mg DAILY PO 10/18/24 10:00 10/22/24 10:08 40 MG Polyethylene Glycol 17 gm DAILY PRN PO 10/17/24 17:45 10/22/24 10:07 17 GM Ranolazine 500 mg BID PO 10/17/24 22:00 10/22/24 10:08 500 MG Spironolactone 25 mg DAILY PO 10/18/24 10:00 10/22/24 10:08 25 MG Cholecalciferol 2,000 unit BID PO 10/17/24 22:00 10/22/24 10:08 2,000 UNIT Fluoxetine HCl 20 mg DAILY PO 10/18/24 10:00 10/22/24 10:08 20 MG Patient Own Medication 1 puff BID IN 10/17/24 22:00 Phenazopyridine HCl 100 mg TID PO 10/17/24 22:00 10/22/24 14:43 100 MG Albuterol 2.5 mg Q4HWA [facility] 10/18/24 18:00 10/22/24 14:04 2.5 MG Ipratropium [place] 0.5 mg Q4HWA [facility] 10/18/24 18:00 10/22/24 14:04 0.5 MG Methylprednisolone Sodium Succinate 40 mg BID IV 10/20/24 10:00 10/22/24 10:10 40 MG Alprazolam 0.25 mg Q8HP PRN PO 10/22/24 15:00 UNV Laboratory Results Laboratory Tests 10/19/24 06:10 10/21/24 05:45 Urinalysis Test 10/17/24 14:22 10/18/24 20:05 Urine Hyaline Casts Mod /lpf (0 - 2) Urine Color Dark-orange (Yellow) Urine Clarity Clear (Clear) Urine pH 6.0 (5.0-9.0) Urine Specific [place] 1.023 (1.001-1.035) Urine Protein Trace (Negative) H Urine Ketones Negative (Negative) Urine Blood Negative /uL (Negative) Urine Nitrite 2+ (Negative) H Urine Bilirubin 2+ (Negative) H Urine Urobilinogen 6 mg/dL (Negative) Urine Leukocyte Esterase Negative /uL (Negative) Urine RBC 1 /hpf (0 - 4) Urine Microscopic WBC 1 /HPF (0-5) Urine Squamous Epithelial Cells Mod /hpf (<5) Urine Bacteria Few /hpf (None Seen) H Urine Creatinine 122.43 mg/dL (30.0-125.0) Urine Sodium 34 mmol/L (40-220) L Urine Glucose Normal mg/dL (Normal) Urine Total Protein 17.0 mg/dL (1-14) H Microbiology Microbiology Date/Time Source Procedure Growth Status 10/17/24 14:22 Voided Urine Urine Culture - Final Complete Assessment/Plan Assessment/Plan Back pain UTI Coronary artery disease with a history of CABG Ischemic cardiomyopathy ejection fraction 10% Mixed hyperlipidemia Hypertension Biventricular ICD COPD Chronic respiratory failure on home O2 History of diverticulosis Gout Plan IV antibiotics Levaquin Urine culture Med neb treatments Oxygen as needed Pain management as needed Physical therapy Continue the home medications Monitor closely The rest of the management will depend on the hospital course Full code Advance directives discussed for 20 minutes 10/19/2024: Continue the current management Urine culture showing Gram-negative mixed zach Continue IV Levaquin Physical therapy evaluation Monitor closely 10/20/2024: COPD: Get a chest x-ray, start IV steroids Continue IV antibiotics Levaquin Oxygen as needed Med neb treatments 10/21/2024: Chest x-ray is negative Continue the current management with steroids and IV antibiotics and med neb treatments and oxygen as needed Monitor closely 10/22/24: Continue O2 Med-Nebs prn IV Levaquin Aspirin Plavix Lipitor IV steroids Physical therapy Plan discussed with: Patient My Orders Orders - YENNY FRAIRE MD Procedure Category Date Status Time Alprazolam Tablet PHA 10/22/24 Logged (Xanax Tablet) 15:00 Date of Service: October 22, 2024 Billing Provider: YENNY FRAIRE MD Common Visit Codes: [id number] INP/OBS CARE(HIGH) YENNY FRAIRE MD October 22, 2024 15:50
[2024-10-22] MEDS: ALPRAZolam 0.25 MG TAB PO PRN (20:37)
[2024-10-23] VITALS (17 sets, daily range): BP systolic 106–128; BP diastolic 65–82; PULSE 66–93; RESP 14–18; TEMP 97.7–98.1; O2SAT 93–97
--- NOTE | 2024-10-23 14:24 | DVHPN2 ---
Reviewed: Care Plan, H&P, Labs, Medications, Previous Orders, Radiology Changes from previous H/P or p: No Changes Objective Vitals Vital Signs Date Time Temp Pulse Resp B/P (MAP) Pulse Ox O2 Delivery O2 Flow Rate FiO2 10/23/24 13:29 88 18 95 10/23/24 13:23 Nasal Cannula 3.0 10/23/24 13:23 32 10/23/24 13:00 106/78 10/23/24 09:00 97.9 97.9 Intake/Output Intake and Output 10/23/24 07:00 Intake Total 905 ml Output Total 650 ml Balance 255 ml Intake Oral 855 ml IV Total 50 ml Output Urine Total 650 ml # Voids 2 General Appearance: Alert, Oriented X3, Cooperative, No acute distress Lungs: Clear to auscultation, Normal air movement Cardiovascular: Regular rate, Normal S1, Normal S2 Abdomen: Normal bowel sounds, Soft, No tenderness Extremities: No edema Medications Current Medications Medications Dose Ordered Sig/Asha Route Start Time Stop Time Status Last Admin Dose Admin Levofloxacin 50 ml @ 50 mls/hr DAILY IV 10/18/24 10:00 10/23/24 10:28 50 MLS/HR Sodium Chloride 10 ml Q8HR IV 10/17/24 22:00 10/23/24 13:28 10 ML Docusate Sodium 100 mg BIDPRN PRN PO 10/17/24 17:45 10/23/24 10:27 100 MG Acetaminophen 650 mg Q6HP PRN PO 10/17/24 17:45 Hydromorphone HCl 0.5 mg Q4HP PRN IV 10/17/24 17:45 10/23/24 10:29 0.5 MG Ondansetron HCl 4 mg Q4HP PRN IV 10/17/24 17:45 10/23/24 10:28 4 MG Enoxaparin Sodium 30 mg DAILY SC 10/18/24 10:00 10/23/24 10:28 30 MG Oxycodone/ Acetaminophen 1 tab Q6H PRN PO 10/17/24 17:45 10/23/24 06:43 1 TAB Ascorbic Acid 500 mg BID PO 10/17/24 22:00 10/23/24 10:27 500 MG Aspirin 81 mg DAILY PO 10/18/24 10:00 10/23/24 10:25 81 MG Atorvastatin Calcium 40 mg HS PO 10/17/24 22:00 10/22/24 23:00 40 MG Clopidogrel Bisulfate 75 mg DAILY PO 10/18/24 10:00 10/23/24 10:26 75 MG Duloxetine HCl 30 mg DAILY PO 10/18/24 10:00 10/23/24 10:26 30 MG Multivitamins 1 tab DAILY PO 10/18/24 10:00 10/23/24 10:26 1 TAB Oxybutynin Chloride 5 mg Q8HR PO 10/17/24 22:00 10/23/24 13:28 5 MG Pantoprazole Sodium 40 mg DAILY PO 10/18/24 10:00 10/23/24 10:27 40 MG Polyethylene Glycol 17 gm DAILY PRN PO 10/17/24 17:45 10/23/24 10:25 17 GM Ranolazine 500 mg BID PO 10/17/24 22:00 10/23/24 10:25 500 MG Spironolactone 25 mg DAILY PO 10/18/24 10:00 10/23/24 10:26 25 MG Cholecalciferol 2,000 unit BID PO 10/17/24 22:00 10/23/24 10:27 2,000 UNIT Fluoxetine HCl 20 mg DAILY PO 10/18/24 10:00 10/23/24 10:27 20 MG Patient Own Medication 1 puff BID IN 10/17/24 22:00 Phenazopyridine HCl 100 mg TID PO 10/17/24 22:00 10/23/24 13:28 100 MG Albuterol 2.5 mg Q4HWA [facility] 10/18/24 18:00 10/23/24 13:23 2.5 MG Ipratropium [place] 0.5 mg Q4HWA [facility] 10/18/24 18:00 10/23/24 13:23 0.5 MG Methylprednisolone Sodium Succinate 40 mg BID IV 10/20/24 10:00 10/23/24 10:28 40 MG Alprazolam 0.25 mg Q8HP PRN PO 10/22/24 15:00 10/22/24 20:37 0.25 MG Laboratory Results Laboratory Tests 10/19/24 06:10 10/21/24 05:45 Urinalysis Test 10/17/24 14:22 10/18/24 20:05 Urine Hyaline Casts Mod /lpf (0 - 2) Urine Color Dark-orange (Yellow) Urine Clarity Clear (Clear) Urine pH 6.0 (5.0-9.0) Urine Specific [place] 1.023 (1.001-1.035) Urine Protein Trace (Negative) H Urine Ketones Negative (Negative) Urine Blood Negative /uL (Negative) Urine Nitrite 2+ (Negative) H Urine Bilirubin 2+ (Negative) H Urine Urobilinogen 6 mg/dL (Negative) Urine Leukocyte Esterase Negative /uL (Negative) Urine RBC 1 /hpf (0 - 4) Urine Microscopic WBC 1 /HPF (0-5) Urine Squamous Epithelial Cells Mod /hpf (<5) Urine Bacteria Few /hpf (None Seen) H Urine Creatinine 122.43 mg/dL (30.0-125.0) Urine Sodium 34 mmol/L (40-220) L Urine Glucose Normal mg/dL (Normal) Urine Total Protein 17.0 mg/dL (1-14) H Microbiology Microbiology Date/Time Source Procedure Growth Status 10/17/24 14:22 Voided Urine Urine Culture - Final Complete Labs and/or images reviewed: Labs reviewed by me, Image(s) reviewed by me Assessment/Plan Assessment/Plan Covering for Dr. Velazquez Acute on chronic Back pain: Pain meds UTI : Urine cultures mixed, continue Levaquin Coronary artery disease with a history of CABG Ischemic cardiomyopathy ejection fraction 10% Mixed hyperlipidemia Hypertension Biventricular ICD COPD Chronic respiratory failure on home O2 History of diverticulosis Gout Plan discussed with: Patient Date of Service: October 23, 2024 Billing Provider: JANE VEGA MD Common Visit Codes: [id number] INP/OBS CARE(HIGH) JANE VEGA MD October 23, 2024 14:24
[2024-10-24] VITALS (18 sets, daily range): BP systolic 101–136; BP diastolic 55–79; PULSE 67–87; RESP 14–19; TEMP 97.7–98.4; O2SAT 93–99
--- NOTE | 2024-10-24 07:43 | DVHPN2 ---
Reviewed: Care Plan, H&P, Labs, Medications, Previous Orders, Radiology Changes from previous H/P or p: No Changes Objective Vitals Vital Signs Date Time Temp Pulse Resp B/P (MAP) Pulse Ox O2 Delivery O2 Flow Rate FiO2 10/24/24 06:33 82 17 136/82 10/24/24 05:55 98 10/24/24 05:47 Nasal Cannula 3.0 10/24/24 05:47 32 10/24/24 05:00 97.8 97.8 Intake/Output Intake and Output 10/24/24 07:00 Intake Total 1348 ml Output Total 400 ml Balance 948 ml Intake Oral 1298 ml IV Total 50 ml Output Urine Total 400 ml # Voids 4 General Appearance: Alert, Oriented X3, Cooperative, No acute distress Lungs: Clear to auscultation, Normal air movement Cardiovascular: Regular rate, Normal S1, Normal S2 Abdomen: Normal bowel sounds, Soft, No tenderness Extremities: No edema Medications Current Medications Medications Dose Ordered Sig/Asha Route Start Time Stop Time Status Last Admin Dose Admin Levofloxacin 50 ml @ 50 mls/hr DAILY IV 10/18/24 10:00 10/23/24 10:28 50 MLS/HR Sodium Chloride 10 ml Q8HR IV 10/17/24 22:00 10/24/24 06:03 10 ML Docusate Sodium 100 mg BIDPRN PRN PO 10/17/24 17:45 10/23/24 10:27 100 MG Acetaminophen 650 mg Q6HP PRN PO 10/17/24 17:45 Hydromorphone HCl 0.5 mg Q4HP PRN IV 10/17/24 17:45 10/24/24 06:03 0.5 MG Ondansetron HCl 4 mg Q4HP PRN IV 10/17/24 17:45 10/23/24 19:45 4 MG Enoxaparin Sodium 30 mg DAILY SC 10/18/24 10:00 10/23/24 10:28 30 MG Oxycodone/ Acetaminophen 1 tab Q6H PRN PO 10/17/24 17:45 10/23/24 06:43 1 TAB Ascorbic Acid 500 mg BID PO 10/17/24 22:00 10/23/24 22:06 500 MG Aspirin 81 mg DAILY PO 10/18/24 10:00 10/23/24 10:25 81 MG Atorvastatin Calcium 40 mg HS PO 10/17/24 22:00 10/23/24 22:06 40 MG Clopidogrel Bisulfate 75 mg DAILY PO 10/18/24 10:00 10/23/24 10:26 75 MG Duloxetine HCl 30 mg DAILY PO 10/18/24 10:00 10/23/24 10:26 30 MG Multivitamins 1 tab DAILY PO 10/18/24 10:00 10/23/24 10:26 1 TAB Oxybutynin Chloride 5 mg Q8HR PO 10/17/24 22:00 10/24/24 06:02 5 MG Pantoprazole Sodium 40 mg DAILY PO 10/18/24 10:00 10/23/24 10:27 40 MG Polyethylene Glycol 17 gm DAILY PRN PO 10/17/24 17:45 10/23/24 10:25 17 GM Ranolazine 500 mg BID PO 10/17/24 22:00 10/23/24 22:06 500 MG Spironolactone 25 mg DAILY PO 10/18/24 10:00 10/23/24 10:26 25 MG Cholecalciferol 2,000 unit BID PO 10/17/24 22:00 10/23/24 22:06 2,000 UNIT Fluoxetine HCl 20 mg DAILY PO 10/18/24 10:00 10/23/24 10:27 20 MG Patient Own Medication 1 puff BID IN 10/17/24 22:00 Phenazopyridine HCl 100 mg TID PO 10/17/24 22:00 10/24/24 06:02 100 MG Albuterol 2.5 mg Q4HWA [facility] 10/18/24 18:00 10/24/24 05:46 2.5 MG Ipratropium [place] 0.5 mg Q4HWA NEB 10/18/24 18:00 10/24/24 05:46 0.5 MG Methylprednisolone Sodium Succinate 40 mg BID IV 10/20/24 10:00 10/23/24 22:06 40 MG Alprazolam 0.25 mg Q8HP PRN PO 10/22/24 15:00 10/23/24 17:19 0.25 MG Laboratory Results Laboratory Tests 10/19/24 06:10 10/21/24 05:45 Urinalysis Test 10/17/24 14:22 10/18/24 20:05 Urine Hyaline Casts Mod /lpf (0 - 2) Urine Color Dark-orange (Yellow) Urine Clarity Clear (Clear) Urine pH 6.0 (5.0-9.0) Urine Specific [place] 1.023 (1.001-1.035) Urine Protein Trace (Negative) H Urine Ketones Negative (Negative) Urine Blood Negative /uL (Negative) Urine Nitrite 2+ (Negative) H Urine Bilirubin 2+ (Negative) H Urine Urobilinogen 6 mg/dL (Negative) Urine Leukocyte Esterase Negative /uL (Negative) Urine RBC 1 /hpf (0 - 4) Urine Microscopic WBC 1 /HPF (0-5) Urine Squamous Epithelial Cells Mod /hpf (<5) Urine Bacteria Few /hpf (None Seen) H Urine Creatinine 122.43 mg/dL (30.0-125.0) Urine Sodium 34 mmol/L (40-220) L Urine Glucose Normal mg/dL (Normal) Urine Total Protein 17.0 mg/dL (1-14) H Microbiology Microbiology Date/Time Source Procedure Growth Status 10/17/24 14:22 Voided Urine Urine Culture - Final Complete Labs and/or images reviewed: Labs reviewed by me, Image(s) reviewed by me Assessment/Plan Assessment/Plan Covering for Dr. Velazquez Acute on chronic Back pain: Pain meds UTI : Urine cultures mixed, continue Levaquin Coronary artery disease with a history of CABG Ischemic cardiomyopathy ejection fraction 10% Mixed hyperlipidemia Hypertension Biventricular ICD COPD Chronic respiratory failure on home O2 History of diverticulosis Gout No new complaints Plan discussed with: Patient Date of Service: October 24, 2024 Billing Provider: JANE VEGA MD Common Visit Codes: [id number] INP/OBS CARE(HIGH) JANE VEGA MD October 24, 2024 07:42
[2024-10-25] VITALS (17 sets, daily range): BP systolic 112–125; BP diastolic 41–73; PULSE 62–74; RESP 17–20; TEMP 97.1–98.5; O2SAT 93–99
--- NOTE | 2024-10-25 08:44 | DVHPN2 ---
Reviewed: Care Plan, H&P, Labs, Medications, Previous Orders, Radiology Changes from previous H/P or p: No Changes Objective Vitals Vital Signs Date Time Temp Pulse Resp B/P (MAP) Pulse Ox O2 Delivery O2 Flow Rate FiO2 10/25/24 08:00 Nasal Cannula* 2 28 10/25/24 06:21 68 17 114/56 10/25/24 06:09 96 10/25/24 05:00 98.5 98.5 Intake/Output Intake and Output 10/25/24 07:00 Intake Total 710 ml Output Total 200 ml Balance 510 ml Intake Oral 660 ml IV Total 50 ml Output Urine Total 200 ml # Voids 1 General Appearance: Alert, Oriented X3, Cooperative, No acute distress Lungs: Clear to auscultation, Normal air movement Cardiovascular: Regular rate, Normal S1, Normal S2 Abdomen: Normal bowel sounds, Soft, No tenderness Extremities: No edema Medications Current Medications Medications Dose Ordered Sig/Asha Route Start Time Stop Time Status Last Admin Dose Admin Levofloxacin 50 ml @ 50 mls/hr DAILY IV 10/18/24 10:00 10/24/24 09:30 50 MLS/HR Sodium Chloride 10 ml Q8HR IV 10/17/24 22:00 10/25/24 05:52 10 ML Docusate Sodium 100 mg BIDPRN PRN PO 10/17/24 17:45 10/24/24 19:51 100 MG Acetaminophen 650 mg Q6HP PRN PO 10/17/24 17:45 Hydromorphone HCl 0.5 mg Q4HP PRN IV 10/17/24 17:45 10/25/24 05:51 0.5 MG Ondansetron HCl 4 mg Q4HP PRN IV 10/17/24 17:45 10/25/24 05:45 4 MG Enoxaparin Sodium 30 mg DAILY SC 10/18/24 10:00 10/24/24 09:30 30 MG Oxycodone/ Acetaminophen 1 tab Q6H PRN PO 10/17/24 17:45 10/23/24 06:43 1 TAB Ascorbic Acid 500 mg BID PO 10/17/24 22:00 10/24/24 21:07 500 MG Aspirin 81 mg DAILY PO 10/18/24 10:00 10/24/24 09:31 81 MG Atorvastatin Calcium 40 mg HS PO 10/17/24 22:00 10/24/24 21:06 40 MG Clopidogrel Bisulfate 75 mg DAILY PO 10/18/24 10:00 10/24/24 09:32 75 MG Duloxetine HCl 30 mg DAILY PO 10/18/24 10:00 10/24/24 09:31 30 MG Multivitamins 1 tab DAILY PO 10/18/24 10:00 10/24/24 09:31 1 TAB Oxybutynin Chloride 5 mg Q8HR PO 10/17/24 22:00 10/25/24 05:52 5 MG Pantoprazole Sodium 40 mg DAILY PO 10/18/24 10:00 10/24/24 09:32 40 MG Polyethylene Glycol 17 gm DAILY PRN PO 10/17/24 17:45 10/23/24 10:25 17 GM Ranolazine 500 mg BID PO 10/17/24 22:00 10/24/24 21:06 500 MG Spironolactone 25 mg DAILY PO 10/18/24 10:00 10/24/24 09:32 25 MG Cholecalciferol 2,000 unit BID PO 10/17/24 22:00 10/24/24 21:07 2,000 UNIT Fluoxetine HCl 20 mg DAILY PO 10/18/24 10:00 10/24/24 09:31 20 MG Patient Own Medication 1 puff BID IN 10/17/24 22:00 Phenazopyridine HCl 100 mg TID PO 10/17/24 22:00 10/25/24 05:52 100 MG Albuterol 2.5 mg Q4HWA [facility] 10/18/24 18:00 10/25/24 06:03 2.5 MG Ipratropium [place] 0.5 mg Q4HWA NEB 10/18/24 18:00 10/25/24 06:03 0.5 MG Methylprednisolone Sodium Succinate 40 mg BID IV 10/20/24 10:00 10/24/24 21:08 40 MG Alprazolam 0.25 mg Q8HP PRN PO 10/22/24 15:00 10/24/24 19:24 0.25 MG Laboratory Results Laboratory Tests 10/19/24 06:10 10/21/24 05:45 Urinalysis Test 10/17/24 14:22 10/18/24 20:05 Urine Hyaline Casts Mod /lpf (0 - 2) Urine Color Dark-orange (Yellow) Urine Clarity Clear (Clear) Urine pH 6.0 (5.0-9.0) Urine Specific [place] 1.023 (1.001-1.035) Urine Protein Trace (Negative) H Urine Ketones Negative (Negative) Urine Blood Negative /uL (Negative) Urine Nitrite 2+ (Negative) H Urine Bilirubin 2+ (Negative) H Urine Urobilinogen 6 mg/dL (Negative) Urine Leukocyte Esterase Negative /uL (Negative) Urine RBC 1 /hpf (0 - 4) Urine Microscopic WBC 1 /HPF (0-5) Urine Squamous Epithelial Cells Mod /hpf (<5) Urine Bacteria Few /hpf (None Seen) H Urine Creatinine 122.43 mg/dL (30.0-125.0) Urine Sodium 34 mmol/L (40-220) L Urine Glucose Normal mg/dL (Normal) Urine Total Protein 17.0 mg/dL (1-14) H Microbiology Microbiology Date/Time Source Procedure Growth Status 10/17/24 14:22 Voided Urine Urine Culture - Final Complete Labs and/or images reviewed: Labs reviewed by me, Image(s) reviewed by me Assessment/Plan Assessment/Plan Covering for Dr. Velazquez Acute on chronic Back pain: Pain meds UTI : Urine cultures mixed, continue Levaquin Coronary artery disease with a history of CABG Ischemic cardiomyopathy ejection fraction 10% Mixed hyperlipidemia Hypertension Biventricular ICD COPD Chronic respiratory failure on home O2 History of diverticulosis Gout No new complaints Continue current management Plan discussed with: Patient Date of Service: Oct 25, 2024 Billing Provider: JANE VEGA MD Common Visit Codes: [id number] INP/OBS CARE(HIGH) JANE VEGA MD Oct 25, 2024 08:44
--- NOTE | 2024-10-25 17:06 | MEDREC ---
[facility] Intervention Section I [facility] Intervention: Review courses of therapy (9 DAYS ON LEVOFLOXACIN FOR UTI - COURSE OF THERAPY COMPLETE - PLEASE CONSIDER D/C ANTIBIOTIC ) TAMAR AQUINO PHARMACIST Oct 25, 2024 17:06
[2024-10-26] VITALS (13 sets, daily range): BP systolic 114–139; BP diastolic 60–74; PULSE 66–81; RESP 14–19; TEMP 36.8; O2SAT 93–100
--- NOTE | 2024-10-26 08:38 | DVHDS2 ---
Discharge Summary Date of Admission October 17, 2024 at 17:42 Date of Discharge: Oct 26, 2024 Labs/Diagnostic Data: Laboratory Results Test 10/21/24 05:45 10/19/24 06:10 10/18/24 20:05 10/17/24 14:28 Sodium Level 140 mmol/L (136-145) Potassium Level 4.6 mmol/L (3.5-5.1) Chloride Level 108 mmol/L (98-107) Carbon Dioxide Level 25 mmol/L (20-31) Anion Gap 7 (5-15) Blood Urea Nitrogen 22 mg/dL (9-23) Creatinine 1.24 mg/dL (0.550-1.02) Glomerular Filtration Rate Calc 44 mL/min (>90) BUN/Creatinine Ratio 17.7 (10.0-20.0) Serum Glucose 217 mg/dL (74-106) Calcium Level 9.6 mg/dL (8.7-10.4) White Blood Count 4.9 10^3/uL (4.4-10.8) Red Blood Count 3.91 10^6/uL (4.0-5.20) Hemoglobin 11.6 g/dL (12.2-16.2) Hematocrit 34.5 % (36.0-46.0) Mean Corpuscular Volume 88.2 fL (80.0-100.0) Mean Corpuscular Hemoglobin 29.6 pg (28.0-32.0) Mean Corpuscular Hemoglobin Concent 33.6 g/dL (32.0-36.0) Red Cell Distribution Width 16.0 % (11.8-14.3) Platelet Count 222 10^3/uL (140-450) Mean Platelet Volume 8.6 fL (6.9-10.8) Neutrophils (%) (Auto) 43.2 % (37.0-80.0) Lymphocytes (%) (Auto) 33.6 % (10.0-50.0) Monocytes (%) (Auto) 17.3 % (0.0-12.0) Eosinophils (%) (Auto) 5.0 % (0.0-7.0) Basophils (%) (Auto) 0.9 % (0.0-2.0) Neutrophils # (Auto) 2.1 10 ^3/uL (1.6-8.6) Lymphocytes # (Auto) 1.7 10 ^3/uL (0.4-5.4) Monocytes # (Auto) 0.9 10 ^3/uL (0-1.3) Eosinophils # (Auto) 0.2 10 ^3/uL (0-0.8) Basophils # (Auto) 0 10 ^3/uL (0-0.2) Nucleated Red Blood Cells 0.3 % Uric Acid 4.8 mg/dL (3.1-7.8) Phosphorus Level 3.0 mg/dL (2.4-5.1) Total Bilirubin 0.4 mg/dL (0.2-1.0) Aspartate Amino Transferase (AST) 14 U/L (13-40) Alanine Aminotransferase (ALT) < 9 U/L (7-40) Alkaline Phosphatase 60 U/L (46-116) Total Protein 5.6 g/dL (5.7-8.2) Albumin 3.9 g/dL (3.2-4.8) Thyroid Stimulating Hormone (TSH) 3.52 uIU/mL (0.55-4.78) Urine Color Dark-orange (Yellow) Urine Clarity Clear (Clear) Urine pH 6.0 (5.0-9.0) Urine Specific [place] 1.023 (1.001-1.035) Urine Protein Trace (Negative) Urine Ketones Negative (Negative) Urine Blood Negative /uL (Negative) Urine Nitrite 2+ (Negative) Urine Bilirubin 2+ (Negative) Urine Urobilinogen 6 mg/dL (Negative) Urine Leukocyte Esterase Negative /uL (Negative) Urine RBC 1 /hpf (0 - 4) Urine Microscopic WBC 1 /HPF (0-5) Urine Squamous Epithelial Cells Mod /hpf (<5) Urine Bacteria Few /hpf (None Seen) Urine Creatinine 122.43 mg/dL (30.0-125.0) Urine Sodium 34 mmol/L (40-220) Urine Glucose Normal mg/dL (Normal) Urine Total Protein 17.0 mg/dL (1-14) Troponin I High Sensitivity 21 ng/L (</=34) Test 10/17/24 14:22 Urine Hyaline Casts Mod /lpf (0 - 2) Other Laboratory Tests 10/21/24 05:45 10/19/24 06:10 Brief Hx & Hospital Course: 79-year-old female with a history of COPD and chronic respiratory failure on home O2, coronary artery disease with a history of CABG, ischemic cardiomyopathy ejection fraction 10%, hypertension, COPD, diverticulosis, came with lower back pain and flank pain and "kidney pain" She uses treated for UTI last admission was sent home on Macrobid The urine culture this time is negative She was given IV antibiotics with IV Levaquin She was continued on oxygen med neb treatments At times she was having wheezing and cough and she was given IV steroids and continued on IV Levaquin and oxygen Her urinary symptoms improved also with treatment The culture came back negative Overall she is doing better and she is stable for discharge now Final diagnoses Chronic low back pain UTI Acute hypoxic respiratory failure Coronary artery disease with a history of CABG Ischemic cardiomyopathy ejection fraction 10% Chronic systolic heart failure Mixed hyperlipidemia Hypertension Biventricular ICD COPD Chronic respiratory failure on home O2 History of diverticulosis Gout Condition at Discharge: Stable Final Diagnosis/Problems List Chronic low back pain UTI Acute hypoxic respiratory failure Chronic respiratory failure on home O2 Coronary artery disease with a history of CABG Ischemic cardiomyopathy ejection fraction 10% Mixed hyperlipidemia Hypertension Biventricular ICD COPD History of diverticulosis Gout Discharge Disposition: Home SNF Discharge Will this Physician continue t: No Discharge Instruct/Medications Diet: Consistent carbohydrate, Cardiac 2g Na,low cholest Activity: No Restrictions, As Tolerated Follow Up/Referral: PCP KM Medications: Same home meds Discharge Statement: "Patient was advised to return to the ER or call 911 if any headaches, dizziness, shortness of breath, chest pain, abdominal pain, bleeding, fevers, or worsening of medical condition. Patient was counseled about treatment plan, medications, possible side effects, patientverbalized understanding. All questions were answered to the best of my ability. This discharge took greater then 30 minutes in planning, reviewing documentation, counseling the patient, and discussing with other team members." ASSESSMENT ASSESSMENT Assessment Chronic low back pain UTI Acute hypoxic respiratory failure Chronic respiratory failure on home O2 Coronary artery disease with a history of CABG Ischemic cardiomyopathy ejection fraction 10% Mixed hyperlipidemia Hypertension Biventricular ICD COPD History of diverticulosis Gout Date of Service: Oct 26, 2024 Billing Provider: YENNY FRAIRE MD Common Visit Codes: 03939-LAJ/OBS DISCH DAY >30min YENNY FRAIRE MD Oct 26, 2024 08:38
== END 2024-10-26 18:30 | disposition home or self-care (01) | DRG 682 ==
LOC: EDBD 13:58 → ER 13:58 → OVERFLOW 17:42 → CENTRAL 20:57
PROVIDERS: ADMIT Internal Medicine Geriatric Medicine; ATTEND Internal Medicine Geriatric Medicine
DX: N17.0 Acute kidney failure with tubular necrosis (principal); J96.21 Acute and chronic respiratory failure with hypoxia; I13.0 Hypertensive heart and chronic kidney disease with heart failure and stage 1 through stage 4 chronic kidney disease, or unspecified chronic kidney disease; N39.0 Urinary tract infection, site not specified; I50.22 Chronic systolic (congestive) heart failure; N18.31 Chronic kidney disease, stage 3a; G89.29 Other chronic pain; E78.2 Mixed hyperlipidemia; I25.10 Atherosclerotic heart disease of native coronary artery without angina pectoris; J44.89 Other specified chronic obstructive pulmonary disease; F32.A Depression, unspecified; F41.9 Anxiety disorder, unspecified; K21.9 Gastro-esophageal reflux disease without esophagitis; M54.50 Low back pain, unspecified; I25.5 Ischemic cardiomyopathy; M10.9 Gout, unspecified; Z87.442 Personal history of urinary calculi; Z99.81 Dependence on supplemental oxygen; Z95.1 Presence of aortocoronary bypass graft; Z90.710 Acquired absence of both cervix and uterus; Z88.5 Allergy status to narcotic agent; Z86.73 Personal history of transient ischemic attack (TIA), and cerebral infarction without residual deficits; Z83.3 Family history of diabetes mellitus; I25.2 Old myocardial infarction; Z82.49 Family history of ischemic heart disease and other diseases of the circulatory system; Z82.3 Family history of stroke
CPT/HCPCS: 36415; 71045; 76775; 80048; 80053; 81001; 82570; 84100; 84156; 84300; 84443; 84484; 84550; 85025; 87086; 94640; 96365; 96367; 97110; 97116; 97163; G0378; J1956; J2405

== ENCOUNTER 2024-11-09 20:40 | Emergency (ER) | payer OTHER, MEDICAID ==
[~2024-11-09] VITALS: Ht 165.1 cm; Wt 90.9 kg
[~2024-11-09 20:40] MED LIST changes: -NITR-87 PO
--- NOTE | 2024-11-09 20:51 | ECG ---
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
--- NOTE | 2024-11-09 21:11 | ED.PDOC ---
HPI Comments 79y F who presents to the ED via EMS for chief complaint of chest pain. EMS states pt is resident at [facility] and states she been having chest pain since earlier this AM at approx 0800. Pt states her pain is epigastric and substernal in location, rating the pain 8/10,sharp in nature, with pain radiating to the L arm, with no associated exacerbating or relieving factors. EMS arrived on scene and pt had stable vitals and pt was offered nitro but pt refused but was given 324 ASA and 4 mg Zofran. Pt in the ED, otherwise states her pain is still 8/10, with change in her chest pain. Pt otherwise denies any other symptoms at this time. Pt has extensive medical history with history of 8 CO's and multiple visits to [facility]. 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 OF [employer]TER[employer]MEGA MEJIA Hydrocodone (Verified Allergy, Unknown, rash, 05/18/23) tylenol is okay per patient Home Meds Active Scripts Oxycodone W/ Acetaminophen (Percocet 5/325MG) 1 Tab Tb, 1 TAB PO QID, #30 TAB Prov:JANE VEGA MD 09/29/24 Phenazopyridine HCl (Eq Urinary Pain Relief Ma) 99.5 Mg Tab, 99.5 MG PO TID for 10 Days, #30 TAB Prov:PHILL LEALENT 09/23/24 Metoprolol Succinate (Metoprolol Succinate Er) 25 Mg Tab, 1 TAB PO DAILY for 30 Days, #30 TAB 5 Refills Prov:AXEL CARABALLO RESIDENT 09/06/24 Spironolactone (Aldactone) 25 Mg Tab, 25 MG PO DAILY for 30 Days, #30 TAB Prov:BHARAT MICHELLE RESIDENT 07/22/24 Oxybutynin Chloride (Oxybutynin Chloride) 5 Mg Tab, 5 MG PO Q8HR for 30 Days, #90 TAB Prov:BHARAT MICHELLE RESIDENT 07/22/24 Atorvastatin Calcium (ATORVASTATIN CALCIUM) 20 Mg Tab, 40 MG PO HS for 30 Days, #60 TAB Prov:BHARAT MICHELLE RESIDENT 07/22/24 Acetaminophen (Acetaminophen) 325 Mg Tab, 650 MG PO TID for 10 Days, #60 TAB Prov:BHARAT MICHELLE RESIDENT 07/22/24 Duloxetine Hydrochloride (Duloxetine Hydrochloride) 30 Mg Cap, 30 MG PO DAILY for 30 Days, #30 CAP Prov:WINSOME GOMEZ MD 04/29/24 Clopidogrel Bisulfate (CLOPIDOGREL) 75 Mg Tab, 75 MG PO DAILY for 30 Days, #30 TAB 5 Refills Prov:YENNY FRAIRE MD 11/26/23 Ranolazine (Ranolazine ER) 500 Mg Tab, 500 MG PO BID for 30 Days, #60 TAB 2 Refills Prov:MAGAN RUSS RESIDENT 09/16/23 Reported Medications Polyethylene Glycol 3350 (Miralax) 17 Gm Pow, 17 GM PO DAILY PRN for FOR CONSTIPATION for 30 Days, #30 01/28/24 Ipratropium-Albuterol (Ipratropium [place]/Albut) 1 Yuli Yuli, 1 VIAL NEB Q6HPRN PRN for SHORTNESS OF BREATH for 13 Days, #180 09/05/23 Fluticasone-Salmeterol (Fluticasone Propionate/SA 250-50 Mcg/Dose) 1 Aer Aer, 1 PUFF INH BID for 30 Days, #60 09/05/23 Albuterol Sulfate (Albuterol Sulfate Hfa) 108 Mcg/Act Aer, 2 PUFF INH Q4HPRN PRN for dyspnea for 17 Days, #18 09/05/23 Cholecalciferol (VITAMIN D3) 2,000 Unit Tab, 1 TAB PO BID for 30 Days, #60 08/28/23 Multiple Vitamin (Tab-A-Radha) Tab, 1 TAB PO DAILY for 30 Days, #30 08/28/23 Aspirin (Aspir-Low) 81 Mg Tab, 1 TAB PO DAILY for 30 Days, #30 08/28/23 Ascorbic Acid (VITAMIN C TABLET) 500 Mg Tb, 1 TAB PO BID for 30 Days, #60 05/18/23 Pantoprazole Sodium Sesquihydr (Pantoprazole Sodium) 40 Mg Tab, 1 TAB PO DAILY 05/18/23 Fluoxetine HCl (Pmdd) (Fluoxetine HCl) 20 Mg Tab, 20 MG PO DAILY, TAB 05/30/20 Information Source: Patient, Emergency Med Personnel Mode of Arrival: EMS Brought in by: EMS Past Medical History PAST MEDICAL HISTORY: Anemia, Anxiety, Asthma, CAD, CHF, CKF, COPD, CVA, Depression, GERD, Gout, High Lipids, HTN, Kidney Stones, CO, UTI'S Surgical History: Appendectomy, CABG, Hysterectomy, Pacemaker, PTCA, 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 Family History Family History: Reviewed,noncontributory to illness, Unknown Social History Smoker: Non-Smoker Alcohol: Denies ETOH Use Drugs: Denies Drug Use Lives In: Assisted Care Constitutional: denies: chills, diaphoresis, fatigue, fever, malaise, sweats, weakness, others EENTM: denies: blurred vision, double vision, ear bleeding, ear discharge, ear drainage, ear pain, ear ringing, eye pain, eye redness, hearing loss, mouth pain, mouth swelling, nasal discharge, nose bleeding, nose congestion, nose pain, photophobia, tearing, throat pain, throat swelling, voice changes, others Respiratory: denies: cough, hemoptysis, orthopnea, SOB at rest, shortness of breath, SOB with excertion, stridor, wheezing, others Cardiovascular: reports: chest pain; denies: dizzy spells, diaphoresis, Dyspnea on exertion, edema, irregular heart beat, left arm pain, lightheadedness, palpitations, PND, syncope, others Gastrointestinal: denies: abdomen distended, abdominal pain, blood streaked bowels, constipated, diarrhea, dysphagia, difficulty swallowing, hematemesis, melena, nausea, poor appetite, poor fluid intake, rectal bleeding, rectal pain, vomiting, others Genitourinary: denies: abnormal vagina bleeding, burning, dyspareunia, dysuria, flank pain, frequency, hematuria, incontinence, pain, , vagina discharge, urgency, others Neurological: denies: dizziness, fainting, headache, left sided numbness, left sided weakness, numbness, paresthesia, pre-existing deficit, right sided numbness, right sided weakness, seizure, speech problems, tingling, tremors, weakness, others Musculoskeletal: denies: back pain, gout, joint pain, joint swelling, muscle pain, muscle stiffness, neck pain, others Integumetry: denies: bruises, change in color, change in hair/nails, dryness, laceration, lesions, lumps, rash, wounds, others Allergic/Immunocompromised: denies: Difficulty Healing, Frequent Infections, Hives, Itching, others Hematologic/Lymphatic: denies: anemia, blood clots, easy bleeding, easy bruising, swollen glands, others Endocrine: denies: excessive hunger, excessive sweating, excessive thirst, excessive urination, flushing, intolerance to cold, intolerance to heat, unexplained weight gain, unexplained weight loss, others Psychiatric: denies: anxiety, bipolar disorder, depression, hopeless, panic disorder, schizophrenia, sleepless, suicidal, others All Other Systems: Reviewed and Negative Physical Exam General Appearance: No Apparent Distress, Normal HEENT: Normal ENT Inspection, Pharynx Normal, TMs Normal Neck: Full Range of Motion, Non-Tender, Normal, Normal Inspection Respiratory: Chest Non-Tender, Lungs Clear, No Accessory Muscle Use, No Resp iratory Distress, Normal Breath Sounds Cardiovascular: Other (midepigastric and substernal chest tenderness to palpation) Breast Exam: Deferred Gastrointestinal: No Organomegaly, Non Tender, No Pulsatile Mass, Normal Bowel Sounds, Soft Genitalia: Deferred Pelvic: Deferred Rectal: Deferred Extremities: No calf tenderness, Normal capillary refill, Normal inspection, Normal range of motion, Non-tender, No pedal edema Musculoskeletal : Apperance: Normal Neurologic: Alert, 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 Was a procedure done?: No CP Differential Dx Differential Diagnosis: A-fib, A-Flutter, Angina, Anxiety / Panic Attack, Electrolyte Disorder, Heart Failure, CO, PVC's, Sinus Tachycardia Differential Diagnosis: HTN Essential, HTN Accelerated X-Ray, Labs, Meds, VS Vital Signs Date Time Temp Pulse Resp B/P (MAP) Pulse Ox O2 Delivery O2 Flow Rate FiO2 11/09/24 23:00 75 11/09/24 23:00 97.7 81 18 124/62 (82) 98 97.7 11/09/24 23:00 81 18 98 Room Air 11/09/24 20:47 98.0 80 18 119/70 (86) 98 98.0 11/09/24 20:43 74 Lab Test 11/09/24 23:53 11/09/24 22:42 Range/Units Troponin I High Sensitivity 32 31 </=34 ng/L White Blood Count 7.2 4.4-10.8 10^3/uL Red Blood Count 4.61 4.0-5.20 10^6/uL Hemoglobin 14.1 12.2-16.2 g/dL Hematocrit 42.2 36.0-46.0 % Mean Corpuscular Volume 91.5 80.0-100.0 fL Mean Corpuscular Hemoglobin 30.7 28.0-32.0 pg Mean Corpuscular Hemoglobin Concent 33.5 32.0-36.0 g/dL Red Cell Distribution Width 16.8 H 11.8-14.3 % Platelet Count 306 140-450 10^3/uL Mean Platelet Volume 7.8 6.9-10.8 fL Neutrophils (%) (Auto) 54.3 37.0-80.0 % Lymphocytes (%) (Auto) 27.0 10.0-50.0 % Monocytes (%) (Auto) 13.7 H 0.0-12.0 % Eosinophils (%) (Auto) 4.0 0.0-7.0 % Basophils (%) (Auto) 1.0 0.0-2.0 % Neutrophils # (Auto) 3.9 1.6-8.6 10 ^3/uL Lymphocytes # (Auto) 2.0 0.4-5.4 10 ^3/uL Monocytes # (Auto) 1.0 0-1.3 10 ^3/uL Eosinophils # (Auto) 0.3 0-0.8 10 ^3/uL Basophils # (Auto) 0.1 0-0.2 10 ^3/uL Nucleated Red Blood Cells 0.2 % Sodium Level 143 136-145 mmol/L Potassium Level 4.4 3.5-5.1 mmol/L Chloride Level 109 H 98-107 mmol/L Carbon Dioxide Level 25 20-31 mmol/L Anion Gap 9 5-15 Blood Urea Nitrogen 20 9-23 mg/dL Creatinine 1.10 H 0.550-1.02 mg/dL Glomerular Filtration Rate Calc 51 >90 mL/min BUN/Creatinine Ratio 18.2 10.0-20.0 Serum Glucose 86 74-106 mg/dL Calcium Level 10.6 H 8.7-10.4 mg/dL B-Type Natriuretic Peptide 709.15 0-100 pg/mL X-Ray, Labs, Meds, VS Comment Imaging: X-rays and CT scans were reviewed and interpreted by this provider, imaging shows no fractures and no pathological disease. Pending radiology review. Laboratory: Labs reviewed and interpreted by this provider. No significant abnormalities noted. Patient has prior medical visits reviewed. Med reconciliation performed Vital signs reviewed Time of 1ST Reevaluation: 21:50 Reevaluation 1ST: Unchanged Patient Education/Counseling: Diagnosis, Treatment, Need For Follow Up (Follow up with the PCP in 2-4 days. Return here in the emergency department in the next 24 hours if symptoms worsen.) Family Education/Counseling: No Family Present SEPSIS Sepsis Screen Date sepsis recognized/suspect: Nov 09, 2024 Time Sepsis recognized/suspect: 2039 Recent Procedure: No On Antibiotic Therapy: No Respiratory Rate >20: No Heart Rate >90: No Temp<36 C (96.8 F) or >38.3 C: No SBP <90 or MAP <65 mmHG: No New Acute Mental Status Change: No Is the patient on CPAP, BIPAP,: No Orders/Vitals/Labs Physician Orders Urinalysis (11/09/24 20:54) Chest Xray 1 View (11/09/24 20:54) Ct Ab Pel Wo Con-No Oral Or Iv (11/09/24 20:54) Troponin-I Hs (11/09/24 23:54) Vital Signs Date Time Temp Pulse Resp B/P (MAP) Pulse Ox O2 Delivery O2 Flow Rate FiO2 11/09/24 23:00 75 11/09/24 23:00 97.7 81 18 124/62 (82) 98 97.7 11/09/24 23:00 81 18 98 Room Air 11/09/24 20:47 98.0 80 18 119/70 (86) 98 98.0 11/09/24 20:43 74 Laboratory Tests Test 11/09/24 22:42 White Blood Count 7.2 10^3/uL (4.4-10.8) Departure 1 Departure Time of Disposition: 00:33 Impression: Primary Impression: Musculoskeletal chest pain Additional Impressions: CHF (congestive heart failure) Qualified Codes: I50.22 - Chronic systolic (congestive) heart failure Gastroenteritis Disposition: HOME / SELF CARE / HOMELESS Condition: Fair Discharged With: Self Critical Care Note Critical Care Time?: No Stability Stability form required: No Heart Score Heart Score: Heart Score Response (Comments) Value History Slightly Suspicious 0 EKG Normal 0 Age >65 2 Risk Factors >3 or Hx ASHD 2 Troponin Normal limit 0 Total 4 I personally scribed for BORIS RAMIREZ ([email or web address]) on 11/09/24 at 21:11. Electronically submitted by Shelby Sow ([email or web address]). I personally scribed for BORIS RAMIREZ ([email or web address]) on 11/09/24 at 21:22. Electronically submitted by Shelby Sow ([email or web address]). BORIS RAMIREZ Nov 09, 2024 21:11
--- NOTE | 2024-11-09 21:45 | DVH ---
Exam: CT CT AB PEL WO CON-NO ORAL OR IV History: abd pain Comparison Study: CT CT AB PEL WO CON-NO ORAL OR IV on DOS: 09/25/24, CT CT AB PEL WO CON-NO ORAL OR IV on DOS: 09/04/24, CT CT AB PEL WO CON-NO ORAL OR IV on DOS: 07/20/24 TECHNIQUE: Multidetector CT of the abdomen was performed from lung bases to pubic symphysis. Imaging was performed without IV contrast. Axial, coronal and sagittal multiplanar reformats were obtained fr om the axial data set by the technologist. Radiation Dose Information: CT Dose: CTDI volume is 1212.6 mGy. Dose-length product is 696.99 mGy*cm FINDINGS: Evaluation of solid organs is limited due to lack of intravenous contrast use. Findings: Lung Bases: No acute or significant lung base finding. Normal heart size. Coronary artery calcificat ions. No pleural or pericardial effusion. Liver: The liver is normal in size. No focal lesions. Gallbladder and Biliary Tree: Unremarkable Spleen: Unremarkable Pancreas: The pancreas is grossly normal in appearance. Adrenal Glands: Unremarkable Kidneys: Kidneys are grossly normal without calculi or hydronephrosis. Small 12 mm hyperdense cortica l cyst left kidney. Punctate nonobstructing calculus lower pole left kidney. Bladder: Grossly unremarkable for degree of distention. Bowel: The stomach is grossly normal in appearance. Small bowel and colon are normal in caliber and d istribution. The appendix is not visualized; however, no secondary findings of acute appendicitis id entified. Ascites: Absent Lymphadenopathy: No mesenteric, retroperitoneal or periportal lymphadenopathy. Abdominal Wall and Mesentery: Unremarkable. Vasculature: The visualized abdominal aorta is normal in size and caliber. Evaluation of abdominal a nd pelvic vessels is limited due to lack of intravenous contrast. Pelvic Organs: Unremarkable Musculoskeletal: No aggressive focal bony lesions, acute fractures or dislocation. Soft tissues: Unremarkable IMPRESSION: 1. Small hyperdense cortical cysts left kidney. 2. Punctate calculus nonobstructing lower pole left kidney. Radiation optimization: All CT scans at this facility use at least one of these dose optimization lucy hniques: automated exposure control mA and/or kV adjustment per patient size (includes targeted exam s where dose is matched to clinical indication) or iterative reconstruction. HS:Y
--- NOTE | 2024-11-09 21:48 | DVH ---
CHEST RADIOGRAPH Indication: abd pain Technique: Single frontal view of the chest was obtained Comparison: XY CHEST PORTABLE on DOS: 10/20/24, XY CHEST PORTABLE on DOS: 10/17/24, XY CHEST PORTABLE o n DOS: 10/09/24 FINDINGS: Lines and Tubes: Pacemaker in place unchanged. Lungs: No focal consolidation. Pleura: No effusion. No pneumothorax. Cardiomediastinal contours: Unremarkable Bones: No acute osseous abnormality. IMPRESSION: 1. Pacemaker in place without significant change from 10/20 2024
[2024-11-09 23:00] VITALS: BP 124/62; PULSE 75; RESP 18; TEMP 97.7; O2SAT 98
[2024-11-09 23:00] LABS: Basophils # (auto) 0.1 10 ^3/uL (0-0.2); Eosinophils # (auto) 0.3 10 ^3/uL (0-0.8); Hematocrit 42.2 % (36.0-46.0); Hemoglobin 14.1 g/dL (12.2-16.2); Mean Corpuscular Hemoglobin 30.7 pg (28.0-32.0); Mean Corpuscular Hgb Conc. 33.5 g/dL (32.0-36.0); Mean Corpuscular Volume 91.5 fL (80.0-100.0); Monocytes % (auto) 13.7 % (0.0-12.0); Neutrophils # (auto) 3.9 10 ^3/uL (1.6-8.6); Neutrophils % (auto) 54.3 % (37.0-80.0); Nucleated Red Blood Cells % 0.2 %; Platelet Count (auto) 306 10^3/uL (140-450); Red Blood Cells 4.61 10^6/uL (4.0-5.20); Red Cell Distribution Width 16.8 % (11.8-14.3); White Blood Cell 7.2 10^3/uL (4.4-10.8)
[2024-11-09 23:09] LABS: Anion Gap 9 (5-15); Carbon Dioxide 25 mmol/L (20-31); Potassium 4.4 mmol/L (3.5-5.1); Sodium 143 mmol/L (136-145)
[2024-11-09 23:11] LABS: Calcium 10.6 mg/dL (8.7-10.4); Chloride 109 mmol/L (98-107)
[2024-11-09 23:14] LABS: Glucose 86 mg/dL (74-106)
[2024-11-09 23:15] LABS: BUN/Creatinine Ratio 18.2 (10.0-20.0); Blood Urea Nitrogen 20 mg/dL (9-23)
--- NOTE | 2024-11-10 12:45 | ECG ---
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
== END 2024-11-10 00:52 | disposition home or self-care (01) ==
LOC: EDBD 20:40 → ER 20:40
DX: K52.9 Noninfective gastroenteritis and colitis, unspecified (principal); R07.89 Other chest pain; I13.0 Hypertensive heart and chronic kidney disease with heart failure and stage 1 through stage 4 chronic kidney disease, or unspecified chronic kidney disease; N18.9 Chronic kidney disease, unspecified; E78.5 Hyperlipidemia, unspecified; F32.A Depression, unspecified; F41.9 Anxiety disorder, unspecified; J44.9 Chronic obstructive pulmonary disease, unspecified; K21.9 Gastro-esophageal reflux disease without esophagitis; I25.10 Atherosclerotic heart disease of native coronary artery without angina pectoris; Z79.02 Long term (current) use of antithrombotics/antiplatelets; Z79.51 Long term (current) use of inhaled steroids; Z79.82 Long term (current) use of aspirin; Z79.899 Other long term (current) drug therapy; Z86.73 Personal history of transient ischemic attack (TIA), and cerebral infarction without residual deficits; Z87.440 Personal history of urinary (tract) infections; Z88.1 Allergy status to other antibiotic agents; Z88.5 Allergy status to narcotic agent; Z88.6 Allergy status to analgesic agent; Z90.49 Acquired absence of other specified parts of digestive tract; Z90.710 Acquired absence of both cervix and uterus; Z95.0 Presence of cardiac pacemaker; Z95.1 Presence of aortocoronary bypass graft; Z86.2 Personal history of diseases of the blood and blood-forming organs and certain disorders involving the immune mechanism; Z87.442 Personal history of urinary calculi
CPT/HCPCS: 36415; 71045; 74176; 80048; 83880; 84484; 85025; 93005

== ENCOUNTER 2024-11-30 02:01 | Inpatient (IN) | payer OTHER, MEDICAID ==
[~2024-11-30] VITALS: Ht 162.6 cm; Wt 71.6 kg
[2024-11-30 03:53] LABS: Hematocrit 43.6 % (36.0-46.0); Hemoglobin 14.4 g/dL (12.2-16.2); Mean Corpuscular Hemoglobin 29.7 pg (28.0-32.0); Mean Corpuscular Volume 89.6 fL (80.0-100.0); Nucleated Red Blood Cells % 0.2 %
[2024-11-30 03:54] LABS: Anion Gap 10 (5-15); Carbon Dioxide 21 mmol/L (20-31); Potassium 4.3 mmol/L (3.5-5.1); Sodium 140 mmol/L (136-145)
[2024-11-30 03:55] LABS: Calcium 9.9 mg/dL (8.7-10.4)
--- NOTE | 2024-11-30 03:56 | ED.PDOC ---
History of Present Illness HPI Comments 79-year-old female is brought in by ambulance from half-way facility after her AICD went off and shock her twice, this morning. Patient reports on being short of breath, lightheaded, and nauseated prior to initial shock. Second shock is stated to have occurred moments later. Patient denies having a ny chest pain, palpitations, vomiting, or further additional acute symptoms at this time. States on dealing with current urinary symptoms for chronic UTIs she has been dealing with several months, with no improvement after completing most recent antibiotic course of Cipro. Patient also states on having sent CO with the accompanying stent placement 2 weeks ago. Significant history that includes: Anemia, asthma, CAD, CHF, CHF, COPD, CVA, GERD, gout, hyperlipidemia, hypertension, kidney stones, CO, UTI with, quadruple bypass, pacemaker, PTCA, biventricular ICD, ischemic cardiomyopathy, and acute hypoxic respiratory failure. 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 OMEGA MEJIA Hydrocodone (Verified Allergy, Unknown, rash, 05/18/23) tylenol is okay per patient Home Meds Active Scripts Oxycodone W/ Acetaminophen (Percocet 5/325MG) 1 Tab Tb, 1 TAB PO QID, #30 TAB Prov:JANE VEGA MD 09/29/24 Phenazopyridine HCl (Eq Urinary Pain Relief Ma) 99.5 Mg Tab, 99.5 MG PO TID for 10 Days, #30 TAB Prov:PHILL LEAL 09/23/24 Metoprolol Succinate (Metoprolol Succinate Er) 25 Mg Tab, 1 TAB PO DAILY for 30 Days, #30 TAB 5 Refills Prov:AXEL CARABALLO RESIDENT 09/06/24 Spironolactone (Aldactone) 25 Mg Tab, 25 MG PO DAILY for 30 Days, #30 TAB Prov:BHARAT MICHELLE RESIDENT 07/22/24 Oxybutynin Chloride (Oxybutynin Chloride) 5 Mg Tab, 5 MG PO Q8HR for 30 Days, #90 TAB Prov:BHARAT MICHELLE RESIDENT 07/22/24 Atorvastatin Calcium (ATORVASTATIN CALCIUM) 20 Mg Tab, 40 MG PO HS for 30 Days, #60 TAB Prov:BHARAT MICHELLE RESIDENT 07/22/24 Acetaminophen (Acetaminophen) 325 Mg Tab, 650 MG PO TID for 10 Days, #60 TAB Prov:BHARAT MICHELLE RESIDENT 07/22/24 Duloxetine Hydrochloride (Duloxetine Hydrochloride) 30 Mg Cap, 30 MG PO DAILY for 30 Days, #30 CAP Prov:WINSOME GOMEZ MD 04/29/24 Clopidogrel Bisulfate (CLOPIDOGREL) 75 Mg Tab, 75 MG PO DAILY for 30 Days, #30 TAB 5 Refills Prov:YENNY FRAIRE MD 11/26/23 Ranolazine (Ranolazine ER) 500 Mg Tab, 500 MG PO BID for 30 Days, #60 TAB 2 Refills Prov:MAGAN RUSS RESIDENT 09/16/23 Reported Medications Polyethylene Glycol 3350 (Miralax) 17 Gm Pow, 17 GM PO DAILY PRN for FOR CONSTIPATION for 30 Days, #30 01/28/24 Ipratropium-Albuterol (Ipratropium [place]/Albut) 1 Yuli Yuli, 1 VIAL NEB Q6HPRN PRN for SHORTNESS OF BREATH for 13 Days, #180 09/05/23 Fluticasone-Salmeterol (Fluticasone Propionate/SA 250-50 Mcg/Dose) 1 Aer Aer, 1 PUFF INH BID for 30 Days, #60 09/05/23 Albuterol Sulfate (Albuterol Sulfate Hfa) 108 Mcg/Act Aer, 2 PUFF INH Q4HPRN PRN for dyspnea for 17 Days, #18 09/05/23 Cholecalciferol (VITAMIN D3) 2,000 Unit Tab, 1 TAB PO BID for 30 Days, #60 08/28/23 Multiple Vitamin (Tab-A-Radha) Tab, 1 TAB PO DAILY for 30 Days, #30 08/28/23 Aspirin (Aspir-Low) 81 Mg Tab, 1 TAB PO DAILY for 30 Days, #30 08/28/23 Ascorbic Acid (VITAMIN C TABLET) 500 Mg Tb, 1 TAB PO BID for 30 Days, #60 05/18/23 Pantoprazole Sodium Sesquihydr (Pantoprazole Sodium) 40 Mg Tab, 1 TAB PO DAILY 05/18/23 Fluoxetine HCl (Pmdd) (Fluoxetine HCl) 20 Mg Tab, 20 MG PO DAILY, TAB 05/30/20 Information Source: Patient, Emergency Med Personnel Mode of Arrival: Ambulatory Severity: Moderate Timing: Hours Duration: Since onset Prehospital treatment: 12 Lead EKG, Advertising Supervisor Review of Systems: REVIEW OF SYSTEMS: No fever, no chills, or fatigue HEENT: No sore throat, no earache, no congestion, no neck pain. Cardiac: AICD shock. Lightheadedness. No chest pain. No palpitations. Lungs: Shortness of breath, no cough. GI: Nausea, no vomiting, no diarrhea, no constipation, no abdominal pain : No dysuria, frequency, or urgency. No hematuria. Musculoskeletal: No joint pain , no joint swelling, no extremity edema. Skin: No rash, no itching. Neuro: No headache, no dizziness, no weakness Vital Signs Vital Signs Date Time Temp Pulse Resp B/P (MAP) Pulse Ox O2 Delivery O2 Flow Rate FiO2 11/30/24 08:05 70 11/30/24 07:46 97.8 16 111/76 (88) 98 97.8 Physical Exam General: Awake, alert and oriented. No acute distress. Skin: Skin in warm, dry and intact. Appropriate color for ethnicity. HEENT: The head is normocephalic and atraumatic. Conjunctivae are clear without exudates or hemorrhage. Sclera is non-icteric. EOM are intact. No signs of nystagmus. Eyelids are normal in appearance without swelling or lesions. Oral mucosa is pink and moist Neck: The neck is supple with normal range of motion. No JVD. Cardiac: Heart rate and rhythm are normal. No murmurs, gallops, or rubs are auscultated. Respiratory: No signs of respiratory distress. Lung sounds are clear in all lobes bilaterally without rales, rhonchi, or wheezes. Abdominal: Suprapubic tenderness. Otherwise, remaining abdomen is soft, non- tender without distention, guarding or rigidity. Bowel sounds are present and normoactive in all four quadrants. Extremities: Upper and lower extremities are atraumatic in appearance without deformity or edema. Neurological: The patient is awake, alert and oriented to person, place, and time with normal speech. Speech is clear. There is no facial asymmetry. Psychiatric: Appropriate mood and affect. Good judgement and insight. 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 Was a procedure done?: No EKG EKG : Pulse Rate (adult): 77 Arnett: Normal Cardiac Rhythm: Paced (Atrial sensed ventricularly paced) Block: None Hypertrophy: None ST: Normal Differential Dx Considerations may include: Differential diagnoses considered include acute ischemic coronary syndrome, aortic dissection, cardiac tamponade, mediastinitis, pulmonary embolus, pneumothorax, tension pneumothorax, esophageal rupture, coronary artery vasospasm, myocarditis, pericarditis, pneumonia, pulmonary edema, esophageal tear, pancreatitis, aortic stenosis, dilated cardiomyopathy, hypertrophic cardiomyopathy, mitral valve prolapse, malignancy, pleuritis, pneumomediastinum, primary pulmonary hypertension, cholecystitis, esophageal spasm, esophagus, gastritis, GERD, peptic ulcer disease, costochondritis, fibromyalgia, rib fracture, herpes zoster, radicular syndromes, thoracic outlet syndrome, somatiz ation, AICD malfunction X-Ray, Labs, Meds, VS Vital Signs Date Time Temp Pulse Resp B/P (MAP) Pulse Ox O2 Delivery O2 Flow Rate FiO2 11/30/24 08:05 70 11/30/24 07:46 97.8 76 16 111/76 (88) 98 97.8 11/30/24 05:34 67 11/30/24 03:56 77 11/30/24 03:25 79 11/30/24 03:04 98.2 66 16 101/59 (73) 97 98.2 11/30/24 02:24 77 11/30/24 02:17 98.2 86 16 111/84 (93) 100 98.2 Lab Test 11/30/24 05:53 11/30/24 03:54 11/30/24 02:57 Range/Units Troponin I High Sensitivity 28 31 33 </=34 ng/L White Blood Count 8.9 4.4-10.8 10^3/uL Red Blood Count 4.86 4.0-5.20 10^6/uL Hemoglobin 14.4 12.2-16.2 g/dL Hematocrit 43.6 36.0-46.0 % Mean Corpuscular Volume 89.6 80.0-100.0 fL Mean Corpuscular Hemoglobin 29.7 28.0-32.0 pg Mean Corpuscular Hemoglobin Concent 33.1 32.0-36.0 g/dL Red Cell Distribution Width 16.1 H 11.8-14.3 % Platelet Count 268 140-450 10^3/uL Mean Platelet Volume 8.6 6.9-10.8 fL Neutrophils (%) (Auto) 63.6 37.0-80.0 % Lymphocytes (%) (Auto) 22.2 10.0-50.0 % Monocytes (%) (Auto) 12.5 H 0.0-12.0 % Eosinophils (%) (Auto) 1.2 0.0-7.0 % Basophils (%) (Auto) 0.5 0.0-2.0 % Neutrophils # (Auto) 5.7 1.6-8.6 10 ^3/uL Lymphocytes # (Auto) 2.0 0.4-5.4 10 ^3/uL Monocytes # (Auto) 1.1 0-1.3 10 ^3/uL Eosinophils # (Auto) 0.1 0-0.8 10 ^3/uL Basophils # (Auto) 0 0-0.2 10 ^3/uL Nucleated Red Blood Cells 0.2 % Sodium Level 140 136-145 mmol/L Potassium Level 4.3 3.5-5.1 mmol/L Chloride Level 109 H 98-107 mmol/L Carbon Dioxide Level 21 20-31 mmol/L Anion Gap 10 5-15 Blood Urea Nitrogen 27 H 9-23 mg/dL Creatinine 1.17 H 0.550-1.02 mg/dL Glomerular Filtration Rate Calc 47 >90 mL/min BUN/Creatinine Ratio 23.1 H 10.0-20.0 Serum Glucose 101 74-106 mg/dL Calcium Level 9.9 8.7-10.4 mg/dL B-Type Natriuretic Peptide 618.59 0-100 pg/mL Time of 1ST Reevaluation: 03:10 Reevaluation 1ST: Unchanged Patient Education/Counseling: Treatment, Other (Need for admission) Family Education/Counseling: No Family Present SEPSIS Sepsis Screen Date sepsis recognized/suspect: Nov 30, 2024 Time Sepsis recognized/suspect: 214 Recent Procedure: No On Antibiotic Therapy: No Respiratory Rate >20: No Heart Rate >90: No Temp<36 C (96.8 F) or >38.3 C: No SBP <90 or MAP <65 mmHG: No New Acute Mental Status Change: No Is the patient on CPAP, BIPAP,: No Physician Orders Chest Xray 1 View (11/30/24 02:39) Vital Signs Q1HR (11/30/24 02:39) Titrate Oxygen (11/30/24 02:39) Oxygen (11/30/24 ) Continous Pulse Oximetry (11/30/24 02:39) Saline Lock (11/30/24 02:39) Advertising Supervisor (11/30/24 ) Assess Pacemaker Function (11/30/24 02:39) Urinalysis (11/30/24 02:44) Urine Bacterial Culture (11/30/24 02:44) * Cardiology Consult (11/30/24 08:09) Vital Signs Date Time Temp Pulse Resp B/P (MAP) Pulse Ox O2 Delivery O2 Flow Rate FiO2 11/30/24 08:05 70 11/30/24 07:46 97.8 76 16 111/76 (88) 98 97.8 11/30/24 05:34 67 11/30/24 03:56 77 11/30/24 03:25 79 11/30/24 03:04 98.2 66 16 101/59 (73) 97 98.2 11/30/24 02:24 77 11/30/24 02:17 98.2 86 16 111/84 (93) 100 98.2 Laboratory Tests Test 11/30/24 02:57 White Blood Count 8.9 10^3/uL (4.4-10.8) Departure 1 Departure Time of Disposition: 04:45 Impression: Primary Impression: Chest pain Additional Impressions: AICD discharge Lower urinary tract symptoms (LUTS) Disposition: ADMITTED INPATIENT Condition: Stable Comments Patient admitted to hospitalist service for further treatment, evaluation and monitoring. Extensive evaluation was performed in attempt to identify or rule out: (See differential diagnosis section) The following tests were ordered, and results were reviewed by me and discussed with patient: (See diagnostic results section) The following test were independently interpreted by me: EKG I reviewed and agreed with the following test results read by other providers: Chest x-ray I reviewed the following notes from the pt's past medical encounters: July 29, 2024, September 04, 2024, September 20, 2024, September 25, 2024, October 09, 2024, October 18, 2019, and November 09, 2024 encounters for chronic chest pain, NSTEMI, chest pain, acute chest pain, STEMI, acute UTI, and musculoskeletal chest pain, respectfully Additional information was gathered from interviewing the following independent historians: EMS Discussion of management or test interpretation with external physician/other qualified health wound care rn: N/A Decision regarding hospitalization or escalation of hospital level of care: Risk and benefits of admission for further treatment of patient's condition was co nsidered. Due to patient's current clinical condition, high risk of decline and poor outcome if discharged and need for further inpatient management and monitoring, patient will be admitted to the hospital. Critical Care Note Critical Care Time?: No Stability Stability form required: No Heart Score Heart Score: Heart Score Response (Comments) Value History Moderate Suspicious 1 EKG Normal 0 Age >65 2 Risk Factors >3 or Hx ASHD 2 Troponin Normal limit 0 Total 5 I personally scribed for TAMIKO HASSAN MD ([email or web address]) on 11/30/24 at 03:56. Electronically submitted by Abdoul Sanders [email or web address]). TAMIKO HASSAN MD Nov 30, 2024 03:56
[2024-11-30 04:00] LABS: BUN/Creatinine Ratio 23.1 (10.0-20.0); Glucose 101 mg/dL (74-106)
[2024-11-30 04:05] LABS: Blood Urea Nitrogen 27 mg/dL (9-23); Chloride 109 mmol/L (98-107)
--- NOTE | 2024-11-30 05:17 | DVH ---
CHEST RADIOGRAPH Indication: cp Technique: Single frontal view of the chest was obtained COMPARISON: XY CHEST XRAY 1 VIEW on DOS: 11/09/24, XY CHEST PORTABLE on DOS: 10/20/24, XY CHEST PORTABL E on DOS: 10/17/24, XY CHEST PORTABLE on DOS: 10/09/24, XY CHEST XRAY 1 VIEW on DOS: 09/28/24 FINDINGS: Lines and Tubes: Median sternotomy. Left chest AICD. Lungs: Increased interstitial prominence Pleura: Small left pleural effusion No pneumothorax. Cardiomediastinal contours: Unremarkable Bones: Unremarkable IMPRESSION: Mild pulmonary vascular congestion
[2024-11-30] MEDS ORDERED: HYDROcodone-ACET 5/325MG TAB PO PRN (08:30)
[2024-11-30] MEDS ORDERED: DOCUSATE SOD 100 MG CAP PO PRN (08:30)
[2024-11-30] MEDS ORDERED: NITROGLYCERIN 0.4 MG SL TAB SL PRN (08:30)
[2024-11-30] MEDS ORDERED: POLYETHYLENE GLYCOL 17 GM PWDR PO PRN (08:30)
--- NOTE | 2024-11-30 08:56 | DVHHP2 ---
History of Present Illness Reason for Visit: AICD discharge History of Present Illness Niya Scott is an 79-year-old female with past medical history of hypertension, hyperlipidemia, CHF, coronary artery disease, CABG, STEMI in September 2024, PTCA 2024, AICD, GERD, CVA, and GERD who came to the hospital due to her AICD firing. Patient states she called for EMS after her AICD fired twice this morning. She states it has never done that before. She states she has been experiencing chest pain for the last couple of weeks. She did have chest pain this morning prior to it firing. She also states that she felt dizzy. 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: CVA GI: GERD Past Surgical History: Appendectomy, CABG (x 4), Hysterectomy, Other (AICD, PTCA, ), 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 Smoke: No ALCOHOL: none Drugs: None Lives: with Family Domestic Violence: Neg Review of Systems Constitutional: Yes: Weakness; No: Fever, Chills, Sweats, Malaise, Other Eyes: No: Pain, Vision change, Conjunctivae inflammation, Eyelid inflammation, Other, Redness ENT: No: Ear pain, Ear discharge, Nose pain, Nose discharge, Nose congestion, Mouth pain, Mouth swelling, Throat pain, Throat swelling, Other Respiratory: No: Cough, Dry, Shortness of breath, SOB with excertion, Wheezing, Hemoptysis, Pleuritic Pain, Sputum, Wheezing, Other Cardiovascular: Chest Pain; No: Palpitations, Orthopnea, Paroxysmal Noc. Dyspnea, Edema, Lt Headedness, Other Gastrointestinal: No: Nausea, Vomiting, Abdominal Pain, Diarrhea, Constipation, Melena, Hematochezia, Other Genitourinary: No Dysuria, No Frequency, No Incontinence, No Hematuria, No Retention, No Other Musculoskeletal: No: other, neck pain, shoulder pain, arm pain, back pain, hand pain, leg pain, foot pain Skin: No: Rash, Lesions, Jaundice, Bruising, Other Neurological: No: Weakness, Numbness, Incoordination, Change in speech, Confusion, Seizures, Other Allergies: Coded Allergies: Ceftriaxone (Verified Allergy, Intermediate, generalized rash, 11/08/22) MANAGED CARE LIAISONCARLENE MEJIA Hydrocodone (Verified Allergy, Unknown, rash, 05/18/23) tylenol is okay per patient Medications Current Medications Medications Dose Ordered Sig/Asha Route Start Time Stop Time Status Last Admin Dose Admin Sodium Chloride 10 ml Q8HR IV 11/30/24 14:00 UNV Acetaminophen/ Hydrocodone Bitart 1 tab Q4HP PRN PO 11/30/24 08:30 UNV Ondansetron HCl 4 mg Q4HP PRN IV 11/30/24 08:30 UNV Docusate Sodium 100 mg BIDPRN PRN PO 11/30/24 08:30 UNV Acetaminophen 650 mg Q6HP PRN PO 11/30/24 08:30 UNV Nitroglycerin 0.4 mg Q5MINP PRN SL 11/30/24 08:30 UNV Morphine Sulfate 2 mg Q30M PRN IV 11/30/24 08:30 UNV Exam Vital Signs Vital Signs Date Time Temp Pulse Resp B/P (MAP) Pulse Ox O2 Delivery O2 Flow Rate FiO2 11/30/24 08:05 70 11/30/24 07:46 97.8 16 111/76 (88) 98 97.8 General Appearance: Alert, Oriented X3, Cooperative, mild distress HEENT: Atraumatic, PERRLA, Mucous membr. moist/pink Respiratory: Clear to auscultation, Normal air movement Cardiovascular: Regular rate, Normal S1, Normal S2 Abdominal: Normal bowel sounds, Soft, No tenderness, No hepatospenomegaly Extremities: No clubbing, No cyanosis Skin: No rashes, No breakdown, No significant lesion Neuro: Normal gait, Normal speech, Strength at 5/5 X4 ext Psych/Mental Status: Mental status NL, Mood NL Labs/Xrays Labs Test 11/30/24 05:53 11/30/24 02:57 Range/Units Troponin I High Sensitivity 28 </=34 ng/L White Blood Count 8.9 4.4-10.8 10^3/uL Red Blood Count 4.86 4.0-5.20 10^6/uL Hemoglobin 14.4 12.2-16.2 g/dL Hematocrit 43.6 36.0-46.0 % Mean Corpuscular Volume 89.6 80.0-100.0 fL Mean Corpuscular Hemoglobin 29.7 28.0-32.0 pg Mean Corpuscular Hemoglobin Concent 33.1 32.0-36.0 g/dL Red Cell Distribution Width 16.1 H 11.8-14.3 % Platelet Count 268 140-450 10^3/uL Mean Platelet Volume 8.6 6.9-10.8 fL Neutrophils (%) (Auto) 63.6 37.0-80.0 % Lymphocytes (%) (Auto) 22.2 10.0-50.0 % Monocytes (%) (Auto) 12.5 H 0.0-12.0 % Eosinophils (%) (Auto) 1.2 0.0-7.0 % Basophils (%) (Auto) 0.5 0.0-2.0 % Neutrophils # (Auto) 5.7 1.6-8.6 10 ^3/uL Lymphocytes # (Auto) 2.0 0.4-5.4 10 ^3/uL Monocytes # (Auto) 1.1 0-1.3 10 ^3/uL Eosinophils # (Auto) 0.1 0-0.8 10 ^3/uL Basophils # (Auto) 0 0-0.2 10 ^3/uL Nucleated Red Blood Cells 0.2 % Sodium Level 140 136-145 mmol/L Potassium Level 4.3 3.5-5.1 mmol/L Chloride Level 109 H 98-107 mmol/L Carbon Dioxide Level 21 20-31 mmol/L Anion Gap 10 5-15 Blood Urea Nitrogen 27 H 9-23 mg/dL Creatinine 1.17 H 0.550-1.02 mg/dL Glomerular Filtration Rate Calc 47 >90 mL/min BUN/Creatinine Ratio 23.1 H 10.0-20.0 Serum Glucose 101 74-106 mg/dL Calcium Level 9.9 8.7-10.4 mg/dL B-Type Natriuretic Peptide 618.59 0-100 pg/mL CHEST RADIOGRAPH FINDINGS: Lines and Tubes: Median sternotomy. Left chest AICD. Lungs: Increased interstitial prominence Pleura: Small left pleural effusion No pneumothorax. Cardiomediastinal contours: Unremarkable Bones: Unremarkable IMPRESSION: Mild pulmonary vascular congestion Assessment/Plan Assessment/Plan Assessment: AICD discharge, CAD, CHF, Hypertension, Hyperlipidemia, GERD, Plan: Admit to Tele, Cardiology consult, Chest pain protocol, Continuous telemetry monitoring, Home medications reconciled, Plan discussed with: Patient My Orders Orders - SAROJ GRIFFIN Procedure Category Date Status Time * Cardiology Consult CONS 11/30/24 Transmitted 08:09 Admit ADMIT 11/30/24 Transmitted 08:20 Code Status CODE 11/30/24 Transmitted 08:20 Sodium Chloride Lock PHA 11/30/24 Logged (Saline Lock Ns) 14:00 Hydrocodone-Acet PHA 11/30/24 Logged 5/325mg Tab ([place] 08:30 Ondansetron Hcl PHA 11/30/24 Logged (Zofran) 08:30 Docusate Sodium PHA 11/30/24 Logged Capsule ([place] 08:30 Complete Blood Count LAB 12/01/24 Verified 04:00 Comprehensive LAB 12/01/24 Verified Metabolic Panel 04:00 Cardiac DIET 11/30/24 Transmitted Diet-2gna,Lofat,Lochol Breakfast Condition: Serious AME 11/30/24 In Process 08:20 Acetaminophen Tablet [facility] 11/30/24 Logged (Tylenol Tablet) 08:30 Nitroglycerin [facility] 11/30/24 Logged Sublingual (Ntrostat 08:30 Morphine Sulfate [facility] 11/30/24 Logged Injection 08:30 Stat Ekg For Chest [facility] 11/30/24 In Process Pain 08:20 Notify Md Of Changes [facility] 11/30/24 In Process From Base 08:20 General Maintenance Mechanic For [facility] 11/30/24 In Process 24 Hours 08:20 Emergency Dysrhythmia [facility] 11/30/24 In Process Protocol 08:20 Rhythm Strips Once [facility] 11/30/24 In Process Every Shift 08:20 Oxygen By Nasal RT 11/30/24 Transmitted Cannula 08:20 Date of Service: Nov 30, 2024 Billing Provider: SAROJ GRIFFIN Common Visit Codes: [id number] INP/OBS CARE (MOD) SAROJ GRIFFIN Nov 30, 2024 08:56
--- NOTE | 2024-11-30 09:29 | DVHINCON2 ---
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 She herself mentions she was alert and lying in bed when this happened. Denies any chest pain prior to. Denies any shortness of breath prior showed. Mentions some lightheadedness prior to the episode. There is questionable nausea feeding prior to the episode. She also remembers stent a 2nd episode happened few minutes later without any warning signs. Cardiology is involved for cardiac aspects of care. She is known to our practice from before. She does have history of systolic heart failure. Serial high sensitive troponin has been negative. Home Meds Active Scripts Oxycodone W/ Acetaminophen (Percocet 5/325MG) 1 Tab Tb, 1 TAB PO QID, #30 TAB Prov:JANE VEGA MD 09/29/24 Phenazopyridine HCl (Eq Urinary Pain Relief Ma) 99.5 Mg Tab, 99.5 MG PO TID for 10 Days, #30 TAB Prov:PHILL LEAL RESDIDEBRA 09/23/24 Metoprolol Succinate (Metoprolol Succinate Er) 25 Mg Tab, 1 TAB PO DAILY for 30 Days, #30 TAB 5 Refills Prov:AXEL CARABALLO RESIDENT 09/06/24 Spironolactone (Aldactone) 25 Mg Tab, 25 MG PO DAILY for 30 Days, #30 TAB Prov:BHARAT MICHELLE RESIDENT 07/22/24 Oxybutynin Chloride (Oxybutynin Chloride) 5 Mg Tab, 5 MG PO Q8HR for 30 Days, #90 TAB Prov:BHARAT MICHELLE RESIDENT 07/22/24 Atorvastatin Calcium (ATORVASTATIN CALCIUM) 20 Mg Tab, 40 MG PO HS for 30 Days, #60 TAB Prov:BHARAT MICHELLE RESIDENT 07/22/24 Acetaminophen (Acetaminophen) 325 Mg Tab, 650 MG PO TID for 10 Days, #60 TAB Prov:BHARAT MICHELLE RESIDENT 07/22/24 Duloxetine Hydrochloride (Duloxetine Hydrochloride) 30 Mg Cap, 30 MG PO DAILY for 30 Days, #30 CAP Prov:WINSOME GOMEZ MD 04/29/24 Clopidogrel Bisulfate (CLOPIDOGREL) 75 Mg Tab, 75 MG PO DAILY for 30 Days, #30 TAB 5 Refills Prov:YENNY FRAIRE MD 11/26/23 Ranolazine (Ranolazine ER) 500 Mg Tab, 500 MG PO BID for 30 Days, #60 TAB 2 Refills Prov:MAGAN RUSS RESIDENT 09/16/23 Reported Medications Polyethylene Glycol 3350 (Miralax) 17 Gm Pow, 17 GM PO DAILY PRN for FOR CONSTIPATION for 30 Days, #30 01/28/24 Ipratropium-Albuterol (Ipratropium [place]/Albut) 1 Y[place], 1 VIAL NEB Q6HPRN PRN for SHORTNESS OF BREATH for 13 Days, #180 09/05/23 Fluticasone-Salmeterol (Fluticasone Propionate/SA 250-50 Mcg/Dose) 1 Aer Aer, 1 PUFF INH BID for 30 Days, #60 09/05/23 Albuterol Sulfate (Albuterol Sulfate Hfa) 108 Mcg/Act Aer, 2 PUFF INH Q4HPRN PRN for dyspnea for 17 Days, #18 09/05/23 Cholecalciferol (VITAMIN D3) 2,000 Unit Tab, 1 TAB PO BID for 30 Days, #60 08/28/23 Multiple Vitamin (Tab-A-Radha) Tab, 1 TAB PO DAILY for 30 Days, #30 08/28/23 Aspirin (Aspir-Low) 81 Mg Tab, 1 TAB PO DAILY for 30 Days, #30 08/28/23 Ascorbic Acid (VITAMIN C TABLET) 500 Mg Tb, 1 TAB PO BID for 30 Days, #60 05/18/23 Pantoprazole Sodium Sesquihydr (Pantoprazole Sodium) 40 Mg Tab, 1 TAB PO DAILY 05/18/23 Fluoxetine HCl (Pmdd) (Fluoxetine HCl) 20 Mg Tab, 20 MG PO DAILY, TAB 05/30/20 Past Medical History Others Past medical history includes hypertension, hyperlipidemia, coronary artery disease, history of CABG (2010), systolic heart failure, ischemic cardiomyopathy, gout, kidney stone, s/p ESWL, frequent UTI, history of CVA, Diverticulosis, COPD, s/p COVID, depression, Anxiety, GERD, history of appendectomy/hysterectomy/tonsillectomy, and history of BiV ICD (Biotronik) implantation. She is chronically wheelchair-bound. She was previously in hospice for heart failure. She is allergic to codeine. She quit smoking years ago. She is DNR. She also has diagnosis of parkinsonism. Patient Family History: Arthritis Cardiovascular disease G8 MOTHER, Onset:Unknown Cerebrovascular accident (CVA) G8 FATHER Coronary artery disease G8 MOTHER, Onset:Unknown FH: diabetes mellitus G8 MOTHER, Onset:Unknown FH: heart disease G8 MOTHER, Onset:Unknown FH: hypertension G8 MOTHER, Onset:Unknown FH: lupus 19 CHILD FH: myocardial infarction G8 MOTHER, Onset:Unknown Family history: Cardiovascular disease G8 MOTHER, Onset:Unknown G8 FATHER, Onset:Unknown Glaucoma G8 MOTHER, Onset:Unknown Smoker: No Hx (Negative) Alocohol: None Drugs: None Lives with: Shelter Review of Systems Constitutional: No symptom reported Ears, Nose, & Throat: No symptom reported Eyes: No symptom reported Pulmonary/Respiratory: No symptom reported Cardiovascular: Lt Headedness Gastrointestinal: No symptom reported Genitourinary: Dysuria Musculoskeletal: No symptom reported Skin: No symptom reported Psychiatric: No symptom reported Endocrine: No symptom reported Hemotologic/Lymphatic: No symptom reported All Other Systems 14 point review of system was performed. Relevant findings as per above and as per HPI. Otherwise, negative. H&P Exam Vital Signs Vital Signs Date Time Temp Pulse Resp B/P (MAP) Pulse Ox O2 Delivery O2 Flow Rate FiO2 11/30/24 08:05 70 11/30/24 07:46 97.8 16 111/76 (88) 98 97.8 General Appeara: Well developed Head Exam: Normal inspection Eye Exam: bilateral eye PERRL Mouth: Normal Inspection Pulmonary/Respiratory: Lungs clear Cardiovascular/Chest: Regular rate, Systolic murmur Peripheral Pulses: 2+ carotid (R), 2+ carotid (L), 2+ femoral (R), 2+ femoral (L), 2+ Radial (R), 2+ Radial (L) Abdominal Exam: Normal bowel sounds, Soft Neuro/Mental St: Alert, Oriented Appearance: Appropriate appearance Eye contact/ Speech: Cooperative Labs/Xrays Labs Test 11/30/24 05:53 11/30/24 02:57 Range/Units Troponin I High Sensitivity 28 </=34 ng/L White Blood Count 8.9 4.4-10.8 10^3/uL Red Blood Count 4.86 4.0-5.20 10^6/uL Hemoglobin 14.4 12.2-16.2 g/dL Hematocrit 43.6 36.0-46.0 % Mean Corpuscular Volume 89.6 80.0-100.0 fL Mean Corpuscular Hemoglobin 29.7 28.0-32.0 pg Mean Corpuscular Hemoglobin Concent 33.1 32.0-36.0 g/dL Red Cell Distribution Width 16.1 H 11.8-14.3 % Platelet Count 268 140-450 10^3/uL Mean Platelet Volume 8.6 6.9-10.8 fL Neutrophils (%) (Auto) 63.6 37.0-80.0 % Lymphocytes (%) (Auto) 22.2 10.0-50.0 % Monocytes (%) (Auto) 12.5 H 0.0-12.0 % Eosinophils (%) (Auto) 1.2 0.0-7.0 % Basophils (%) (Auto) 0.5 0.0-2.0 % Neutrophils # (Auto) 5.7 1.6-8.6 10 ^3/uL Lymphocytes # (Auto) 2.0 0.4-5.4 10 ^3/uL Monocytes # (Auto) 1.1 0-1.3 10 ^3/uL Eosinophils # (Auto) 0.1 0-0.8 10 ^3/uL Basophils # (Auto) 0 0-0.2 10 ^3/uL Nucleated Red Blood Cells 0.2 % Sodium Level 140 136-145 mmol/L Potassium Level 4.3 3.5-5.1 mmol/L Chloride Level 109 H 98-107 mmol/L Carbon Dioxide Level 21 20-31 mmol/L Anion Gap 10 5-15 Blood Urea Nitrogen 27 H 9-23 mg/dL Creatinine 1.17 H 0.550-1.02 mg/dL Glomerular Filtration Rate Calc 47 >90 mL/min BUN/Creatinine Ratio 23.1 H 10.0-20.0 Serum Glucose 101 74-106 mg/dL Calcium Level 9.9 8.7-10.4 mg/dL B-Type Natriuretic Peptide 618.59 0-100 pg/mL Assessment/Plan Plan Patient is a 79 year female was 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 She herself mentions she was alert and lying in bed when this happened. Denies any chest pain prior to. Denies any shortness of breath prior showed. Mentions some lightheadedness prior to the episode. There is questionable nausea feeding prior to the episode. She also remembers stent a 2nd episode happened few minutes later without any warning signs. Cardiology is involved for cardiac aspects of care. She is known to our practice from before. She does have history of systolic heart failure. Serial high sensitive troponin has been negative. Lying comfortably flat in bed, no JVD, pink and wet mucosa, no carotid bruit, no goiter, lungs: Not using accessory muscles of breathing, lungs reveal scattered rhonchi, cardiac: Regular regular, no thrill/gallop, 2+murmur in apex, abdomen: Soft, no hepatomegaly, some suprapubic and upper epigastric tenderness is positive, no rebound tenderness, extremities: No edema, dorsalis pedis is 2+ bilateral. Right femoral/groin area with no hematoma. Past medical history includes hypertension, hyperlipidemia, coronary artery disease, history of CABG (2010), systolic heart failure, ischemic cardiomyopathy, gout, kidney stone, s/p ESWL, frequent UTI, history of CVA, Diverticulosis, COPD, s/p COVID, depression, Anxiety, GERD, history of appendectomy/hysterectomy/tonsillectomy, and history of BiV ICD (Biotronik) implantation. She is chronically wheelchair-bound. She was previously in hospice for heart failure. She is allergic to codeine. She quit smoking years ago. She is DNR. She also has diagnosis of parkinsonism. Cardiac catheterization of August 26, 2024 (performed in [facility]) revealed triple-vessel [place] coronary artery disease. HOUSE DIRECTOR of obtuse marginal. HOUSE DIRECTOR of RCA. Lad with 75% lesion and status post drug-eluting stent deployment. It is of note that there is patent SVG to obtuse marginal and also patent SVG to RCA. Cardiac catheterization of September 2020 revealed ejection fraction of 20%, HOUSE DIRECTOR of SVG to diagonal, patent TAN, patent SVG to OM, patent SVG to PDA and HOUSE DIRECTOR of RCA. Echocardiogram of September 04, 2024 reported: Dilated left ventricle. LVEF of 10%. Increased EDP. Pacing wire in right-sided chambers. Mild mitral regurgitation. As there was no good tricuspid regurgitation jet, right ventricular systolic pressure could not be estimated Echocardiogram of August 25, 2024 (performed in [facility]) for PE old ejection fraction of 20% Echocardiogram of reported: LV EF of 15-20%, biatrial enlargement, pacing wire in the right-sided chambers. Echocardiogram of November 22, 2023 revealed: Dilated left ventricle, LVEF of 10%, pacing wire and right-sided chambers, mild mitral regurgitation. Echocardiogram of August 28, 2023 revealed: Dilated left ventricle with significantly reduced systolic function. LVEF of 20%. Elevated LVEDP, dilated four chambers. Pacing wire was seen in right-sided chamber. [id number] MR. Echocardiogram of January 03, 2023 revealed ejection fraction of 20 to 25% and mild left ventricular enlargement Echocardiogram of March 25, 2023 (performed in the office) revealed four- chamber dilatation, LVEF of 20 to 25%, mild to moderate MR, mild TR, trace pulmonary valve insufficiency and right ventricular systolic pressure of 35 mmHg Echocardiogram of March 21, 2022 revealed ejection fraction of around 20%, mild MR/TR Echocardiogram of February 17, 2021 revealed dilated LV, LVEF around 25%, severe diffuse hypokinesis, increased LVEDP, dilated left and right atria, mild to moderate MR, mild TR. Echocardiogram of December 30, 2020 reported ejection fraction less than 20% and dilated left atrium. Echocardiogram of August 2020 revealed ejection fraction less than 25%, right atrial enlargement, left atrial enlargement and moderate MR. Creatinine: 1.17 Potassium: 4.3 Troponin (high sensitive): 33 - 31 - 28 BNP: 618.59 Chest x-ray reported: IMPRESSION: Mild pulmonary vascular congestion EKG reviewed: Revealed sinus rhythm with paced ventricular rhythm Patient is a 79-year-old female presented with post ICD firing. Denies any c hest pain prior to the episode. Mentions compliance with medications. Serial high sensitive troponin has been negative and acute coronary syndrome is not considered. Patient had recent ischemic workup/cardiac catheterization and repeat ischemic workup is not indicated at this point. To restart outside medications and will add amiodarone at this point. Patient is on dual antipla telet therapy for previously implanted stent. To be kept on aspirin/Plavix. Does have baseline history of ischemic/systolic heart failure which at this point is considered compensated. She is DNR. Does complain of dysuria and has history of UTIs (not new). Interrogation of ICD is advised. ICD firing (as per patient) Ischemic cardiomyopathy, history of Systolic CHF s/p BiV-ICD implantation Coronary artery disease, status post CABG Status post PCI Diverticular disease Renal calculi Emphysema Kidney stone, history of Coronary artery disease, SP CABG GERD Hypertension Hyperlipidemia Gout Constipation UTI Cardiac suggestion for management: Manage on telemetry Follow-up electrolytes and kidney function tests and correct abnormalities. Keep potassium above 4 and magnesium above 2 Continue Aspirin/Plavix Request for interrogation of ICD (Biotronik) TFT Mg level Echocardiogram Amiodarone for now Continue Toprol-XL/Entresto/Aldactone/Ranolazine/Atorvastatin Evaluation and management of UTI/dysuria as per primary Further evaluation and management depends on the above and clinical course Thank you for Consultation A total of 75 minutes was spent reviewing the patient record, examining the patient, making a diagnostic and therapeutic plan, discussing this plan with medical personnel, following up on diagnostic studies and following the patient for clinical stability excluding any and all procedures. At least 50% of this time was spent in direct, [id number] contact. Thank you for allowing me to participate in this patient's care. Further recommendations will depend on patient's clinical course. Please do not hesitate to contact me if you have any questions or concerns. This medical document was created using electronic medical record system with [employer] computerized dictation system. Although this document has been carefully reviewed, there may still be some phonetic and typographical errors. These areas are purely typographical due to the imperfection of the software programs, and do not reflect any compromise in the patient's medical care. Plan discussed with: Patient, Other (nurse) RODRIGUEZ LEBRON MD Nov 30, 2024 09:29
[2024-11-30] MEDS ORDERED: PATIENTS OWN MEDICATION (Metoprolol Succinate (Metoprolol Succinate Er) 1 TAB) PO SCH (10:00)
[2024-11-30] MEDS ORDERED: CLOPIDOGREL BISULFATE 75 MG TAB PO SCH (10:00)
[2024-11-30] MEDS ORDERED: ASPirin-EC 81 mg tab PO SCH (10:00)
[2024-11-30] MEDS ORDERED: RANOLAZINE ER 500 MG TAB PO SCH (10:00)
[2024-11-30] MEDS: PANTOPRAZOLE 40 MG TAB PO SCH (10:17)
[2024-11-30] MEDS: AMIODARONE HCL 200 MG TAB PO SCH (10:18)
[2024-11-30] MEDS: METOPROLOL SUCCINATE XL 50 MG TAB PO SCH (10:18)
[2024-11-30] MEDS: ASCORBIC ACID 500 MG TAB PO SCH (10:18)
[2024-11-30] MEDS: SPIRONOLACTONE 25 MG TAB PO SCH (10:18)
[2024-11-30] MEDS: SACUBITRIL-VALSARTAN 24mg/26mg TAB PO SCH (10:42)
[2024-11-30] MEDS: CLOPIDOGREL BISULFATE 75 MG TAB PO SCH (10:43)
[2024-11-30] MEDS: RANOLAZINE ER 500 MG TAB PO SCH (10:43)
--- NOTE | 2024-11-30 11:25 | ECG ---
[facility] Test Date: 2024-11-30 Test Time: 02:07:58 Pat Name: MONICA JAMES Department: ED Room: 0291T Gender: F Skip Locator: : 1945 Requested By: TAMIKO HASSAN Order Number: [id number] Reading MD: Adair Mijares Measurements Intervals [place] Rate: 77 P: 80 IA: 213 QRS: 244 QRSD: 114 T: 170 QT: 425 QTc: 482 Interpretive Statements Atrial-sensed ventricular-paced rhythm No further analysis attempted due to paced rhythm Electronically Signed On 12-03-2024 18:56:36 PDT by Adair Mijares Please click the below link to view image of tracing.
--- NOTE | 2024-11-30 11:26 | ECG ---
[facility] Test Date: 2024-11-30 Test Time: 05:11:46 Pat Name: MONICA JAMES Department: ED Room: 0291T Gender: F Service Line Layer: : 1945 Requested By: TAMIKO HASSAN Order Number: [id number] Reading MD: Adair Mijares Measurements Intervals [place] Rate: 67 P: 40 VT: 203 QRS: 239 QRSD: 114 T: 149 QT: 446 QTc: 471 Interpretive Statements Atrial-sensed ventricular-paced rhythm No further analysis attempted due to paced rhythm Electronically Signed On 12-03-2024 18:56:54 PDT by Adair Mijares Please click the below link to view image of tracing.
--- NOTE | 2024-11-30 11:26 | ECG ---
[facility] Test Date: 2024-11-30 Test Time: 03:09:22 Pat Name: MONICA JAMES Department: ED Room: 0291T Gender: F Chair Upholsterer: : 1945 Requested By: TAMIKO HASSAN Order Number: [id number] Reading MD: Adair Mijares Measurements Intervals [place] Rate: 79 P: 0 ND: 160 QRS: -77 QRSD: 160 T: 93 QT: 455 QTc: 522 Interpretive Statements Atrial-sensed ventricular-paced complexes No further analysis attempted due to paced rhythm Electronically Signed On 12-03-2024 18:56:44 PDT by Adair Mijares Please click the below link to view image of tracing.
[2024-11-30] MEDS: FLUTICASONE SALMETEROL IN SCH (11:28)
[2024-11-30] MEDS: CHOLECALCIFEROL (VITD3) 1,000UNIT=25mCg TAB PO SCH (11:31)
[2024-11-30] MEDS: KETOROLAC TROMETH 30 MG/ML 1ML VIAL IV PRN (13:30)
[2024-11-30] MEDS: ONDANSETRON HCL 4 MG/2 ML VIAL IV PRN (13:31)
[2024-11-30] MEDS: SODIUM CHLOR 0.9% PF (SALINE LOCK) 10ML VIAL/SYR IV SCH (14:09)
[2024-11-30] MEDS: ACETAMINOPHEN 325 MG TAB PO PRN (18:49)
[2024-11-30 19:35] VITALS: PULSE 67; RESP 14; O2SAT 96
[2024-11-30 23:49] VITALS: BP 118/71; PULSE 63; RESP 17; RESP 7; TEMP 98.3; O2SAT 94
[2024-12-01] VITALS (8 sets, daily range): BP systolic 102–125; BP diastolic 60–71; PULSE 63–80; RESP 16–18; TEMP 98–98.4; O2SAT 93–97
--- NOTE | 2024-12-01 07:49 | DVHPN2 ---
Progress Note - Dictate Date Seen: Dec 01, 2024 Medical Necessity Reason Pt with a Central, PICC or Fol: No vital signs Vital Sign Date Time Temp Pulse Resp B/P (MAP) Pulse Ox O2 Delivery O2 Flow Rate FiO2 12/01/24 05:00 98.0 75 18 124/68 (86) 93 98.0 11/30/24 23:49 Nasal Cannula* 2 28 Total Intake and Output 11/30/24 11/30/24 12/01/24 15:00 23:00 07:00 Intake Total 200 ml Balance 200 ml medications Current Medications Medications Dose Ordered Sig/Asha Route Start Time Stop Time Status Last Admin Dose Admin Sodium Chloride 10 ml Q8HR IV 11/30/24 14:00 12/01/24 05:55 10 ML Acetaminophen/ Hydrocodone Bitart 1 tab Q4HP PRN PO 11/30/24 08:30 Hold Ondansetron HCl 4 mg Q4HP PRN IV 11/30/24 08:30 12/01/24 02:23 4 MG Docusate Sodium 100 mg BIDPRN PRN PO 11/30/24 08:30 Acetaminophen 650 mg Q6HP PRN PO 11/30/24 08:30 12/01/24 01:19 650 MG Nitroglycerin 0.4 mg Q5MINP PRN SL 11/30/24 08:30 Morphine Sulfate 2 mg Q30M PRN IV 11/30/24 08:30 Ascorbic Acid 500 mg BID PO 11/30/24 10:00 11/30/24 22:08 500 MG Aspirin 81 mg DAILY PO 11/30/24 10:00 UNV Clopidogrel Bisulfate 75 mg DAILY PO 11/30/24 10:00 UNV Pantoprazole Sodium 40 mg DAILY PO 11/30/24 10:00 11/30/24 10:17 40 MG Polyethylene Glycol 17 gm DAILY PRN PO 11/30/24 08:30 Ranolazine 500 mg BID PO 11/30/24 10:00 UNV Cholecalciferol 2,000 unit BID PO 11/30/24 10:00 11/30/24 22:08 2,000 UNIT Fluoxetine HCl 20 mg DAILY PO 11/30/24 10:00 11/30/24 10:00 20 MG Patient Own Medication 1 puff BID IN 11/30/24 10:00 Patient Own Medication 1 tab DAILY PO 11/30/24 10:00 UNV Aspirin 81 mg DAILY PO 11/30/24 10:00 11/30/24 10:42 81 MG Amiodarone HCl 200 mg Q12HR PO 11/30/24 10:00 11/30/24 22:07 200 MG Spironolactone 25 mg DAILY PO 11/30/24 10:00 11/30/24 10:18 25 MG Ranolazine 500 mg BID PO 11/30/24 10:00 11/30/24 22:09 500 MG Clopidogrel Bisulfate 75 mg DAILY PO 11/30/24 10:00 11/30/24 10:43 75 MG Metoprolol Succinate 25 mg DAILY PO 11/30/24 10:00 11/30/24 10:18 25 MG Sacubitril/ Valsartan 1 tab BID PO 11/30/24 10:00 11/30/24 22:08 1 TAB Ketorolac Tromethamine 15 mg Q6HPRN PRN IV 11/30/24 12:45 12/05/24 12:44 12/01/24 02:22 15 MG laboratory and microbiology Laboratory Tests 11/30/24 02:57 Test 11/30/24 02:57 Range/Units Serum Glucose 101 74-106 mg/dL Assessment/Plan Patient is a 79 year female was 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 She herself mentions she was alert and lying in bed when this happened. Denies any chest pain prior to. Denies any shortness of breath prior showed. Mentions some lightheadedness prior to the episode. There is questionable nausea feeding prior to the episode. She also remembers stent a 2nd episode happened few minutes later without any warning signs. Cardiology is involved for cardiac aspects of care. She is known to our practice from before. She does have history of systolic heart failure. Serial high sensitive troponin has been negative. Lying comfortably flat in bed, no JVD, pink and wet mucosa, no carotid bruit, no goiter, lungs: Not using accessory muscles of breathing, lungs reveal scattered rhonchi, cardiac: Regular regular, no thrill/gallop, 2+murmur in apex, abdomen: Soft, no hepatomegaly, some suprapubic and upper epigastric tenderness is positive, no rebound tenderness, extremities: No edema, dorsalis pedis is 2+ bilateral. Right femoral/groin area with no hematoma. Past medical history includes hypertension, hyperlipidemia, coronary artery disease, history of CABG (2010), systolic heart failure, ischemic cardiomyopathy, gout, kidney stone, s/p ESWL, frequent UTI, history of CVA, Diverticulosis, COPD, s/p COVID, depression, Anxiety, GERD, history of appendectomy/hysterectomy/tonsillectomy, and history of BiV ICD (Biotronik) implantation. She is chronically wheelchair-bound. She was previously in hospice for heart failure. She is allergic to codeine. She quit smoking years ago. She is DNR. She also has diagnosis of parkinsonism. Cardiac catheterization of August 26, 2024 (performed in [facility]) revealed triple-vessel [place] coronary artery disease. COLLAR POINTER of obtuse marginal. COLLAR POINTER of RCA. Lad with 75% lesion and status post drug-eluting stent deployment. It is of note that there is patent SVG to obtuse marginal and also patent SVG to RCA. Cardiac catheterization of September 2020 revealed ejection fraction of 20%, COLLAR POINTER of SVG to diagonal, patent TAN, patent SVG to OM, patent SVG to PDA and COLLAR POINTER of RCA. Echocardiogram of September 04, 2024 reported: Dilated left ventricle. LVEF of 10%. Increased EDP. Pacing wire in right-sided chambers. Mild mitral regurgitation. As there was no good tricuspid regurgitation jet, right ventricular systolic pressure could not be estimated Echocardiogram of August 25, 2024 (performed in [facility]) for PE old ejection fraction of 20% Echocardiogram of reported: LV EF of 15-20%, biatrial enlargement, pacing wire in the right-sided chambers. Echocardiogram of November 22, 2023 revealed: Dilated left ventricle, LVEF of 10%, pacing wire and right-sided chambers, mild mitral regurgitation. Echocardiogram of August 28, 2023 revealed: Dilated left ventricle with significantly reduced systolic function. LVEF of 20%. Elevated LVEDP, dilated four chambers. Pacing wire was seen in right-sided chamber. [id number] MR. Echocardiogram of January 03, 2023 revealed ejection fraction of 20 to 25% and mild left ventricular enlargement Echocardiogram of March 25, 2023 (performed in the office) revealed four- chamber dilatation, LVEF of 20 to 25%, mild to moderate MR, mild TR, trace pulmonary valve insufficiency and right ventricular systolic pressure of 35 mmHg Echocardiogram of March 21, 2022 revealed ejection fraction of around 20%, mild MR/TR Echocardiogram of February 17, 2021 revealed dilated LV, LVEF around 25%, severe diffuse hypokinesis, increased LVEDP, dilated left and right atria, mild to moderate MR, mild TR. Echocardiogram of December 30, 2020 reported ejection fraction less than 20% and dilated left atrium. Echocardiogram of August 2020 revealed ejection fraction less than 25%, right atrial enlargement, left atrial enlargement and moderate MR. Creatinine: 1.17 Potassium: 4.3 M.1 Troponin (high sensitive): 33 - 31 - 28 BNP: 618.59 TSH: 1.32 D-Dimer: 0.33 Chest x-ray reported: IMPRESSION: Mild pulmonary vascular congestion EKG reviewed: Revealed sinus rhythm with paced ventricular rhythm Tele revealed: A sense V paced rhythm Echocardiogram revealed: Left ventricle: Dilated left ventricle was observed. Diffuse hypokinesis of left ventricle with regional variation was seen. The LVEF was around 10%. Filling pressure of left ventricle was increased. Right ventricle was not well-visualized. Systolic function of right ventricle was reduced. Both atria were normal sized. Pacing wire in the right sided chambers was seen. Aortic valve was not well visualized. There was no aortic insufficiency/emesis. There was mild mitral regurgitation. There was trace tricuspid regurgitation. Pulmonary valve was not well visualized. As there was no acute tricuspid regurgitation jet, right ventricular systolic pressure could not be estimated. There was no pericardial effusion. Patient is a 79-year-old female presented with post ICD firing. Denies any chest pain prior to the episode. Mentions compliance with medications. Serial high sensitive troponin has been negative and acute coronary syndrome is not considered. Patient had recent ischemic workup/cardiac catheterization and repeat ischemic workup is not indicated at this point. To restart outside medications and will add amiodarone at this point. Patient is on dual antiplatelet therapy for previously implanted stent. To be kept on aspirin/Plavix. Does have baseline history of ischemic/systolic heart failure which at this point is considered compensated. She is DNR. Does complain of dysuria and has history of UTIs (not new). Interrogation of ICD is advised. ICD firing (as per patient) Ischemic cardiomyopathy, history of Systolic CHF s/p BiV-ICD implantation Coronary artery disease, status post CABG Status post PCI Diverticular disease Renal calculi Emphysema Kidney stone, history of Coronary artery disease, SP CABG GERD Hypertension Hyperlipidemia Gout Constipation UTI Cardiac suggestion for management: Manage on telemetry Follow-up electrolytes and kidney function tests and correct abnormalities. Keep potassium above 4 and magnesium above 2 Continue Aspirin/Plavix Awaiting interrogation of ICD (Biotronik) Amiodarone for now Continue Toprol-XL/Entresto/Aldactone/Ranolazine/Atorvastatin Evaluation and management of UTI/dysuria as per primary Further evaluation and management depends on the above and clinical course A total of 55 minutes was spent reviewing the patient record, examining the patient, making a diagnostic and therapeutic plan, discussing this plan with medical personnel, following up on diagnostic studies and following the patient for clinical stability excluding any and all procedures. At least 50% of this time was spent in direct, [id number] contact. Thank you for allowing me to participate in this patient's care. Further recommendations will depend on patient's clinical course. Please do not hesitate to contact me if you have any questions or concerns. This medical document was created using electronic medical record system with [employer] computerized dictation system. Although this document has been carefully reviewed, there may still be some phonetic and typographical errors. These areas are purely typographical due to the imperfection of the software programs, and do not reflect any compromise in the patient's medical care. Plan discussed with: Patient, Other (nurse) RODRIGUEZ LEBRON MD Dec 01, 2024 07:49
--- NOTE | 2024-12-01 07:49 | DVHSR ---
APPROVED REPORT EXAM: Two-dimensional and M-mode echocardiogram with Doppler and color Doppler. Blood Pressure: 111/76 mmHg INDICATION Chest Pain Surgery/Intervention Pacemaker: CABG: RISK FACTORS Height: 5'6", Weight: 174 DIMENSIONS LVDd7.8 (3.8-5.7cm)LA (2D)3.5 (1.9-4.0cm)Aortic Root3.5 (2.0-3.7cm) LVDs7.4 (2.5-4.0cm)LA (MM) (1.9-4.0cm)Aortic Cusp Exc1.6 (1.5-2.0cm) EF (%) 11.0 (55-70%)Rt. Atrium2.9 (1.9-4.0cm)Asc. Aorta cm IVSd0.8 (0.7-1.1cm)RV (D) (1.8-2.4cm) PWd0.9 (0.7-1.1cm) Mitral Valve MitralMitral Stenosis E wave0.42m/sMV Mean GR.mmHg A wave1.16m/sMV Peak GR.mmHg E/A ratio0.42D MVAcm2 Aortic Valve Aortic ValveAortic Stenosis V10.72m/Pedro Mean GR.3mmHg V21.26m/Pedro Peak GR.6mmHg LVOT Diameter2.1 (1.8-2.4cm)Doppler AVA1.98cm2 Pulmonic Valve V20.79m/s Other Information Technically limited study due to body habitus. Conclusion Left ventricle: Dilated left ventricle was observed. Diffuse hypokinesis of left ventricle with reg ional variation was seen. The LVEF was around 10%. Filling pressure of left ventricle was increased . Right ventricle was not well-visualized. Systolic function of right ventricle was reduced. Both atr ia were normal sized. Pacing wire in the right sided chambers was seen. Aortic valve was not well visualized. There was no aortic insufficiency/emesis. There was mild mitr al regurgitation. There was trace tricuspid regurgitation. Pulmonary valve was not well visualized. As there was no acute tricuspid regurgitation jet, right ventricular systolic pressure could not be e stimated. There was no pericardial effusion.
[2024-12-01 10:46] LABS: Hematocrit 46.9 % (36.0-46.0); Hemoglobin 15.5 g/dL (12.2-16.2); Mean Corpuscular Hemoglobin 30.0 pg (28.0-32.0); Mean Corpuscular Volume 90.8 fL (80.0-100.0); Nucleated Red Blood Cells % 0.2 %
[2024-12-01 11:05] LABS: Alanine Aminotransferase 14 U/L (7-40); Albumin 4.3 g/dL (3.2-4.8); Alkaline Phosphatase 75 U/L (46-116); Anion Gap 7 (5-15); BUN/Creatinine Ratio 22.4 (10.0-20.0); Bilirubin, Total 0.5 mg/dL (0.2-1.0); Blood Urea Nitrogen 33 mg/dL (9-23); Calcium 9.8 mg/dL (8.7-10.4); Carbon Dioxide 24 mmol/L (20-31); Chloride 113 mmol/L (98-107); Glucose 107 mg/dL (74-106); Potassium 5.2 mmol/L (3.5-5.1); Sodium 144 mmol/L (136-145); Total Protein 6.0 g/dL (5.7-8.2)
--- NOTE | 2024-12-01 15:09 | DVHPN2 ---
Subjective Patient doing well, no complaints of firing of AICD currently. Reviewed: H&P Changes from previous H/P or p: No Changes General: Per HPI Eyes: No Pain, No Vision change, No Conjunctivae inflammation, No Eyelid inflammation, No Other, No Redness ENT: No Ear pain, No Ear discharge, No Nose pain, No Nose discharge, No Nose congestion, No Mouth pain, No Mouth swelling, No Throat pain, No Throat swelling, No Other Cardiovascular: Chest Pain; No Palpitations, No Orthopnea, No Paroxysmal Noc. Dyspnea, No Edema, No Lt Headedness, No Other Respiratory: No Cough, No Dry, No Shortness of breath, No SOB with excertion, No Wheezing, No Hemoptysis, No Pleuritic Pain, No Sputum, No Other Gastrointestinal: No Nausea, No Vomiting, No Abdominal Pain, No Diarrhea, No Constipation, No Melena, No Hematochezia, No Other Genitourinary: No Dysuria, No Frequency, No Incontinence, No Hematuria, No Retention, No Other Musculoskeletal: No other, No neck pain, No shoulder pain, No arm pain, No back pain, No hand pain, No leg pain, No foot pain Skin: No Rash, No Lesions, No Jaundice, No Bruising, No Other Objective Vitals Vital Signs Date Time Temp Pulse Resp B/P (MAP) Pulse Ox O2 Delivery O2 Flow Rate FiO2 12/01/24 13:00 98.3 72 16 120/70 (87) 94 98.3 12/01/24 08:00 Nasal Cannula* 2 28 Intake/Output Intake and Output 12/01/24 07:00 Intake Total 200 ml Balance 200 ml Intake Oral 200 ml Exam GEN: Healthy appearing, well-developed, NAD. HEENT: NC/AT; MMM. CV: RRR, no m/r/g. LUNGS: CTAB, no w/r/c. ABD: Soft, NT/ND, NBS, no masses or organomegaly. EXT: skin Warm, well perfused. no rashes. No clubbing, cyanosis, or edema. NEURO: Ambulating with no limitations. No focal deficits. Medications Current Medications Medications Dose Ordered Sig/Asha Route Start Time Stop Time Status Last Admin Dose Admin Sodium Chloride 10 ml Q8HR IV 11/30/24 14:00 12/01/24 05:55 10 ML Acetaminophen/ Hydrocodone Bitart 1 tab Q4HP PRN PO 11/30/24 08:30 Hold Ondansetron HCl 4 mg Q4HP PRN IV 11/30/24 08:30 12/01/24 09:49 4 MG Docusate Sodium 100 mg BIDPRN PRN PO 11/30/24 08:30 Acetaminophen 650 mg Q6HP PRN PO 11/30/24 08:30 12/01/24 01:19 650 MG Nitroglycerin 0.4 mg Q5MINP PRN SL 11/30/24 08:30 Morphine Sulfate 2 mg Q30M PRN IV 11/30/24 08:30 Ascorbic Acid 500 mg BID PO 11/30/24 10:00 12/01/24 09:48 500 MG Aspirin 81 mg DAILY PO 11/30/24 10:00 UNV Clopidogrel Bisulfate 75 mg DAILY PO 11/30/24 10:00 UNV Pantoprazole Sodium 40 mg DAILY PO 11/30/24 10:00 12/01/24 09:48 40 MG Polyethylene Glycol 17 gm DAILY PRN PO 11/30/24 08:30 Ranolazine 500 mg BID PO 11/30/24 10:00 UNV Cholecalciferol 2,000 unit BID PO 11/30/24 10:00 12/01/24 09:48 2,000 UNIT Fluoxetine HCl 20 mg DAILY PO 11/30/24 10:00 12/01/24 09:49 20 MG Patient Own Medication 1 puff BID IN 11/30/24 10:00 Patient Own Medication 1 tab DAILY PO 11/30/24 10:00 UNV Aspirin 81 mg DAILY PO 11/30/24 10:00 12/01/24 09:49 81 MG Amiodarone HCl 200 mg Q12HR PO 11/30/24 10:00 12/01/24 09:48 200 MG Spironolactone 25 mg DAILY PO 11/30/24 10:00 12/01/24 09:48 25 MG Ranolazine 500 mg BID PO 11/30/24 10:00 12/01/24 09:48 500 MG Clopidogrel Bisulfate 75 mg DAILY PO 11/30/24 10:00 12/01/24 09:48 75 MG Metoprolol Succinate 25 mg DAILY PO 11/30/24 10:00 12/01/24 09:48 25 MG Sacubitril/ Valsartan 1 tab BID PO 11/30/24 10:00 12/01/24 09:48 1 TAB Ketorolac Tromethamine 15 mg Q6HPRN PRN IV 11/30/24 12:45 12/05/24 12:44 12/01/24 09:49 15 MG Laboratory Results Laboratory Tests 12/01/24 10:21 Chemistry Test 12/01/24 10:21 Albumin 4.3 g/dL (3.2-4.8) Calcium Level 9.8 mg/dL (8.7-10.4) Total Protein 6.0 g/dL (5.7-8.2) LFT Test 12/01/24 10:21 Alanine Aminotransferase (ALT) 14 U/L (7-40) Alkaline Phosphatase 75 U/L (46-116) Aspartate Amino Transferase (AST) 23 U/L (13-40) Total Bilirubin 0.5 mg/dL (0.2-1.0) Labs and/or images reviewed: Labs reviewed by me, Image(s) reviewed by me Assessment/Plan Assessment/Plan 12/01 - patient here for AICD firing discharge x2. Hospice revocation status. Patient is full code status right now. Cardiology following and waiting for interrogation of AICD Biotronik. We will continue to follows alongside with cardiology. No evidence of UTI,no urine culture. AICD discharge, LENORA on CKD, VMN likely, hyperkalemia CAD, CHF, Hypertension, Hyperlipidemia, GERD, PLAN: per cards: Manage on telemetry. Continue Aspirin/Plavix. Awaiting interrogation of ICD (Biotronik). Amiodarone for now. Continue Toprol- XL/Entresto/Aldactone/Ranolazine/Atorvastatin. No evidence UTI. in hospice for recurrent UTI. - continue other home medications. Diet regular DVT prophylaxis-Lovenox GI prophylaxis-tolerating p.o. Tele Full code Plan discussed with: Other Date of Service: Dec 01, 2024 Billing Provider: DELFINO VICENTE MD Common Visit Codes: [id number] INP/OBS CARE(HIGH) DELFINO VICENTE MD Dec 01, 2024 15:09
[2024-12-01 20:24] LABS: Potassium 5.1 mmol/L (3.5-5.1); Sodium 144 mmol/L (136-145)
[2024-12-01 20:25] LABS: Anion Gap 12 (5-15)
[2024-12-01 20:26] LABS: Calcium 10.3 mg/dL (8.7-10.4)
[2024-12-01 20:30] LABS: BUN/Creatinine Ratio 24.3 (10.0-20.0)
[2024-12-01 20:34] LABS: Blood Urea Nitrogen 36 mg/dL (9-23); Carbon Dioxide 18 mmol/L (20-31); Chloride 114 mmol/L (98-107); Glucose 160 mg/dL (74-106)
[2024-12-01] MEDS: SODIUM CHLORIDE 0.9% 1,000 ML IV SCH (21:29)
[2024-12-01] MEDS: PHENAZOPYRIDINE HCL 100 MG TAB PO SCH (21:33)
[2024-12-02] VITALS (7 sets, daily range): BP systolic 110–121; BP diastolic 56–68; PULSE 60–72; RESP 16–19; TEMP 96.1–98.7; O2SAT 97–99
[2024-12-02 06:27] LABS: Urine Protein, UAD TRACE (Negative); Urine WBC Clumps PRESENT /hpf (None Seen)
--- NOTE | 2024-12-02 06:34 | DVHPN2 ---
Progress Note - Dictate Date Seen: Dec 02, 2024 Medical Necessity Reason Pt with a Central, PICC or Fol: No vital signs Vital Sign Date Time Temp Pulse Resp B/P (MAP) Pulse Ox O2 Delivery O2 Flow Rate FiO2 12/02/24 05:00 96.1 65 16 113/63 (80) 99 96.1 12/01/24 20:00 Nasal Cannula* 2 28 Total Intake and Output 12/01/24 12/01/24 12/02/24 15:00 23:00 07:00 Intake Total 100 ml 236 ml Balance 100 ml 236 ml medications Current Medications Medications Dose Ordered Sig/Asha Route Start Time Stop Time Status Last Admin Dose Admin Sodium Chloride 10 ml Q8HR IV 11/30/24 14:00 12/02/24 05:02 10 ML Acetaminophen/ Hydrocodone Bitart 1 tab Q4HP PRN PO 11/30/24 08:30 Hold Ondansetron HCl 4 mg Q4HP PRN IV 11/30/24 08:30 12/02/24 05:03 4 MG Docusate Sodium 100 mg BIDPRN PRN PO 11/30/24 08:30 Acetaminophen 650 mg Q6HP PRN PO 11/30/24 08:30 12/01/24 21:33 650 MG Nitroglycerin 0.4 mg Q5MINP PRN SL 11/30/24 08:30 Morphine Sulfate 2 mg Q30M PRN IV 11/30/24 08:30 Ascorbic Acid 500 mg BID PO 11/30/24 10:00 12/01/24 21:32 500 MG Aspirin 81 mg DAILY PO 11/30/24 10:00 UNV Clopidogrel Bisulfate 75 mg DAILY PO 11/30/24 10:00 UNV Pantoprazole Sodium 40 mg DAILY PO 11/30/24 10:00 12/01/24 09:48 40 MG Polyethylene Glycol 17 gm DAILY PRN PO 11/30/24 08:30 Ranolazine 500 mg BID PO 11/30/24 10:00 UNV Cholecalciferol 2,000 unit BID PO 11/30/24 10:00 12/01/24 21:32 2,000 UNIT Fluoxetine HCl 20 mg DAILY PO 11/30/24 10:00 12/01/24 09:49 20 MG Patient Own Medication 1 puff BID IN 11/30/24 10:00 Patient Own Medication 1 tab DAILY PO 11/30/24 10:00 UNV Aspirin 81 mg DAILY PO 11/30/24 10:00 12/01/24 09:49 81 MG Amiodarone HCl 200 mg Q12HR PO 11/30/24 10:00 12/01/24 21:33 200 MG Spironolactone 25 mg DAILY PO 11/30/24 10:00 12/01/24 09:48 25 MG Ranolazine 500 mg BID PO 11/30/24 10:00 12/01/24 21:32 500 MG Clopidogrel Bisulfate 75 mg DAILY PO 11/30/24 10:00 12/01/24 09:48 75 MG Metoprolol Succinate 25 mg DAILY PO 11/30/24 10:00 12/01/24 09:48 25 MG Sacubitril/ Valsartan 1 tab BID PO 11/30/24 10:00 12/01/24 21:33 1 TAB Ketorolac Tromethamine 15 mg Q6HPRN PRN IV 11/30/24 12:45 12/05/24 12:44 12/02/24 05:03 15 MG Phenazopyridine HCl 100 mg BID PO 12/01/24 22:00 12/01/24 21:33 100 MG laboratory and microbiology Laboratory Tests 12/01/24 19:38 12/01/24 10:21 Test 12/01/24 19:38 Range/Units Serum Glucose 160 H 74-106 mg/dL Assessment/Plan Patient is a 79 year female was 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 She herself mentions she was alert and lying in bed when this happened. Denies any chest pain prior to. Denies any shortness of breath prior showed. Mentions some lightheadedness prior to the episode. There is questionable nausea feeding prior to the episode. She also remembers stent a 2nd episode happened few minutes later without any warning signs. Cardiology is involved for cardiac aspects of care. She is known to our practice from before. She does have history of systolic heart failure. Serial high sensitive troponin has been negative. Lying comfortably flat in bed, no JVD, pink and wet mucosa, no carotid bruit, no goiter, lungs: Not using accessory muscles of breathing, lungs reveal scattered rhonchi, cardiac: Regular regular, no thrill/gallop, 2+murmur in apex, abdomen: Soft, no hepatomegaly, some suprapubic and upper epigastric tenderness is positive, no rebound tenderness, extremities: No edema, dorsalis pedis is 2+ bilateral. Right femoral/groin area with no hematoma. Past medical history includes hypertension, hyperlipidemia, coronary artery disease, history of CABG (2010), systolic heart failure, ischemic cardiomyopathy, gout, kidney stone, s/p ESWL, frequent UTI, history of CVA, Diverticulosis, COPD, s/p COVID, depression, Anxiety, GERD, history of appendectomy/hysterectomy/tonsillectomy, and history of BiV ICD (Biotronik) implantation. She is chronically wheelchair-bound. She was previously in hospice for heart failure. She is allergic to codeine. She quit smoking years ago. She is DNR. She also has diagnosis of parkinsonism. Cardiac catheterization of August 26, 2024 (performed in [facility]) revealed triple-vessel [place] coronary artery disease. [employer]ODUCTION MACHINE OPERATOR of obtuse marginal. VENE[employer] PRODUCTION MACHINE OPERATOR of RCA. Lad with 75% lesion and status post drug-eluting stent deployment. It is of note that there is patent SVG to obtuse marginal and also patent SVG to RCA. Cardiac catheterization of September 2020 revealed ejection fraction of 20%, [employer]ENE[employer] PRODUCTION MACHINE OPERATOR of SVG to diagonal, patent TAN, patent SVG to OM, patent SVG to PDA and VENE[employer] PRODUCTION MACHINE OPERATOR of RCA. Echocardiogram of September 04, 2024 reported: Dilated left ventricle. LVEF of 10%. Increased EDP. Pacing wire in right-sided chambers. Mild mitral regurgitation. As there was no good tricuspid regurgitation jet, right ventricular systolic pressure could not be estimated Echocardiogram of August 25, 2024 (performed in [facility]) for PE old ejection fraction of 20% Echocardiogram of reported: LV EF of 15-20%, biatrial enlargement, pacing wire in the right-sided chambers. Echocardiogram of November 22, 2023 revealed: Dilated left ventricle, LVEF of 10%, pacing wire and right-sided chambers, mild mitral regurgitation. Echocardiogram of August 28, 2023 revealed: Dilated left ventricle with significantly reduced systolic function. LVEF of 20%. Elevated LVEDP, dilated four chambers. Pacing wire was seen in right-sided chamber. [id number] MR. Echocardiogram of January 03, 2023 revealed ejection fraction of 20 to 25% and mild left ventricular enlargement Echocardiogram of March 25, 2023 (performed in the office) revealed four- chamber dilatation, LVEF of 20 to 25%, mild to moderate MR, mild TR, trace pulmonary valve insufficiency and right ventricular systolic pressure of 35 mmHg Echocardiogram of March 21, 2022 revealed ejection fraction of around 20%, mild MR/TR Echocardiogram of February 17, 2021 revealed dilated LV, LVEF around 25%, severe diffuse hypokinesis, increased LVEDP, dilated left and right atria, mild to moderate MR, mild TR. Echocardiogram of December 30, 2020 reported ejection fraction less than 20% and dilated left atrium. Echocardiogram of August 2020 revealed ejection fraction less than 25%, right atrial enlargement, left atrial enlargement and moderate MR. Creatinine: 1.17 - 1.47 - 1.48 Potassium: 4.3 - 5.2 - 5.1 M.1 Troponin (high sensitive): 33 - 31 - 28 BNP: 618.59 TSH: 1.32 D-Dimer: 0.33 Chest x-ray reported: IMPRESSION: Mild pulmonary vascular congestion EKG reviewed: Revealed sinus rhythm with paced ventricular rhythm Tele revealed: A sense V paced rhythm Echocardiogram revealed: Left ventricle: Dilated left ventricle was observed. Diffuse hypokinesis of left ventricle with regional variation was seen. The LVEF was around 10%. Filling pressure of left ventricle was increased. Right ventricle was not well-visualized. Systolic function of right ventricle was reduced. Both atria were normal sized. Pacing wire in the right sided chambers was seen. Aortic valve was not well visualized. There was no aortic insufficiency/emesis. There was mild mitral regurgitation. There was trace tricuspid regurgitation. Pulmonary valve was not well visualized. As there was no acute tricuspid regurgitation jet, right ventricular systolic pressure could not be estimated. There was no pericardial effusion. Patient is a 79-year-old female presented with post ICD firing. Denies any chest pain prior to the episode. Mentions compliance with medications. Serial high sensitive troponin has been negative and acute coronary syndrome is not considered. Patient had recent ischemic workup/cardiac catheterization and repeat ischemic workup is not indicated at this point. To restart outside medications and will add amiodarone at this point. Patient is on dual antiplatelet therapy for previously implanted stent. To be kept on aspirin/Plavix. Does have baseline history of ischemic/systolic heart failure which at this point is considered compensated. She is DNR. Does complain of dysuria and has history of UTIs (not new). Interrogation of ICD is advised. ICD firing (as per patient) Ischemic cardiomyopathy, history of Systolic CHF s/p BiV-ICD implantation Coronary artery disease, status post CABG Status post PCI Diverticular disease Renal calculi Emphysema Kidney stone, history of Coronary artery disease, SP CABG GERD Hypertension Hyperlipidemia Gout Constipation UTI Cardiac suggestion for management: Manage on telemetry Follow-up electrolytes and kidney function tests and correct abnormalities. Keep potassium above 4 and magnesium above 2 Continue Aspirin/Plavix Awaiting interrogation of ICD (Biotronik) Amiodarone for now Continue Toprol-XL/Entresto/Aldactone/Ranolazine/Atorvastatin Evaluation and management of UTI/dysuria as per primary Further evaluation and management depends on the above and clinical course A total of 55 minutes was spent reviewing the patient record, examining the patient, making a diagnostic and therapeutic plan, discussing this plan with medical personnel, following up on diagnostic studies and following the patient for clinical stability excluding any and all procedures. At least 50% of this time was spent in direct, [id number] contact. Thank you for allowing me to participate in this patient's care. Further recommendations will depend on patient's clinical course. Please do not hesitate to contact me if you have any questions or concerns. This medical document was created using electronic medical record system with [employer] computerized dictation system. Although this document has been carefully reviewed, there may still be some phonetic and typographical errors. These areas are purely typographical due to the imperfection of the software programs, and do not reflect any compromise in the patient's medical care. Plan discussed with: Patient, Other (nurse) RODRIGUEZ LEBRON MD Dec 02, 2024 06:34
[2024-12-02 08:19] LABS: Anion Gap 10 (5-15); Carbon Dioxide 22 mmol/L (20-31); Potassium 4.7 mmol/L (3.5-5.1)
[2024-12-02 08:20] LABS: Calcium 10.1 mg/dL (8.7-10.4)
[2024-12-02 08:25] LABS: BUN/Creatinine Ratio 22.9 (10.0-20.0); Glucose 100 mg/dL (74-106)
[2024-12-02 08:37] LABS: Blood Urea Nitrogen 36 mg/dL (9-23); Chloride 114 mmol/L (98-107); Sodium 146 mmol/L (136-145)
[2024-12-02] MEDS ORDERED: cefTRIAXone 1GM/50ML D5W 50 ML IV ONE (16:00)
[2024-12-02] MEDS: MORPHINE SULFATE INJ 2 MG/ml SYRG IV PRN (16:12)
[2024-12-02] MEDS ORDERED: cefTRIAXone 1GM/50ML D5W 50 ML IV SCH (16:49)
--- NOTE | 2024-12-02 16:56 | DVHPN2 ---
Subjective Patient doing well, no complaints of firing of AICD currently. Reviewed: H&P Changes from previous H/P or p: No Changes General: Per HPI Eyes: No Pain, No Vision change, No Conjunctivae inflammation, No Eyelid inflammation, No Other, No Redness ENT: No Ear pain, No Ear discharge, No Nose pain, No Nose discharge, No Nose congestion, No Mouth pain, No Mouth swelling, No Throat pain, No Throat swelling, No Other Cardiovascular: Chest Pain; No Palpitations, No Orthopnea, No Paroxysmal Noc. Dyspnea, No Edema, No Lt Headedness, No Other Respiratory: No Cough, No Dry, No Shortness of breath, No SOB with excertion, No Wheezing, No Hemoptysis, No Pleuritic Pain, No Sputum, No Other Gastrointestinal: No Nausea, No Vomiting, No Abdominal Pain, No Diarrhea, No Constipation, No Melena, No Hematochezia, No Other Genitourinary: No Dysuria, No Frequency, No Incontinence, No Hematuria, No Retention, No Other Musculoskeletal: No other, No neck pain, No shoulder pain, No arm pain, No back pain, No hand pain, No leg pain, No foot pain Skin: No Rash, No Lesions, No Jaundice, No Bruising, No Other Objective Vitals Vital Signs Date Time Temp Pulse Resp B/P (MAP) Pulse Ox O2 Delivery O2 Flow Rate FiO2 12/02/24 16:42 98.5 60 19 116/56 (76) 99 98.5 12/02/24 08:00 Nasal Cannula* 2 28 Intake/Output Intake and Output 12/02/24 07:00 Intake Total 336 ml Balance 336 ml Intake Oral 336 ml # Voids 2 Exam GEN: Healthy appearing, well-developed, NAD. HEENT: NC/AT; MMM. CV: RRR, no m/r/g. LUNGS: CTAB, no w/r/c. ABD: Soft, NT/ND, NBS, no masses or organomegaly. EXT: skin Warm, well perfused. no rashes. No clubbing, cyanosis, or edema. NEURO: Ambulating with no limitations. No focal deficits. Medications Current Medications Medications Dose Ordered Sig/Asha Route Start Time Stop Time Status Last Admin Dose Admin Sodium Chloride 10 ml Q8HR IV 11/30/24 14:00 12/02/24 13:27 10 ML Ondansetron HCl 4 mg Q4HP PRN IV 11/30/24 08:30 12/02/24 16:11 4 MG Docusate Sodium 100 mg BIDPRN PRN PO 11/30/24 08:30 Acetaminophen 650 mg Q6HP PRN PO 11/30/24 08:30 12/01/24 21:33 650 MG Nitroglycerin 0.4 mg Q5MINP PRN SL 11/30/24 08:30 Morphine Sulfate 2 mg Q30M PRN IV 11/30/24 08:30 Ascorbic Acid 500 mg BID PO 11/30/24 10:00 12/02/24 09:43 500 MG Aspirin 81 mg DAILY PO 11/30/24 10:00 UNV Clopidogrel Bisulfate 75 mg DAILY PO 11/30/24 10:00 UNV Pantoprazole Sodium 40 mg DAILY PO 11/30/24 10:00 12/02/24 09:44 40 MG Polyethylene Glycol 17 gm DAILY PRN PO 11/30/24 08:30 Ranolazine 500 mg BID PO 11/30/24 10:00 UNV Cholecalciferol 2,000 unit BID PO 11/30/24 10:00 12/02/24 09:43 2,000 UNIT Fluoxetine HCl 20 mg DAILY PO 11/30/24 10:00 12/02/24 09:43 20 MG Patient Own Medication 1 puff BID IN 11/30/24 10:00 Patient Own Medication 1 tab DAILY PO 11/30/24 10:00 UNV Aspirin 81 mg DAILY PO 11/30/24 10:00 12/02/24 09:43 81 MG Amiodarone HCl 200 mg Q12HR PO 11/30/24 10:00 12/02/24 09:44 200 MG Spironolactone 25 mg DAILY PO 11/30/24 10:00 12/02/24 09:45 25 MG Ranolazine 500 mg BID PO 11/30/24 10:00 12/02/24 09:44 500 MG Clopidogrel Bisulfate 75 mg DAILY PO 11/30/24 10:00 12/02/24 09:45 75 MG Metoprolol Succinate 25 mg DAILY PO 11/30/24 10:00 12/02/24 09:44 25 MG Sacubitril/ Valsartan 1 tab BID PO 11/30/24 10:00 12/02/24 09:45 1 TAB Ketorolac Tromethamine 15 mg Q6HPRN PRN IV 11/30/24 12:45 12/05/24 12:44 12/02/24 11:03 15 MG Phenazopyridine HCl 100 mg BID PO 12/01/24 22:00 12/02/24 09:44 100 MG Morphine Sulfate 2 mg Q4HPRN PRN IV 12/02/24 16:00 12/02/24 16:12 2 MG Oxycodone/ Acetaminophen 2 tab Q6HP PRN PO 12/02/24 16:00 Ceftriaxone Sodium 50 ml @ 100 mls/hr DAILY@09 IV 12/02/24 16:49 UNV Laboratory Results Laboratory Tests 12/01/24 10:21 12/02/24 07:13 Chemistry Test 12/01/24 19:38 12/02/24 07:13 Calcium Level 10.3 mg/dL (8.7-10.4) 10.1 mg/dL (8.7-10.4) Urinalysis Test 12/02/24 05:51 Urine Color Dark-brown (Yellow) Urine Clarity Turbid (Clear) H Urine pH 5.5 (5.0-9.0) Urine Specific [place] 1.031 (1.001-1.035) Urine Protein Trace (Negative) H Urine Ketones Negative (Negative) Urine Blood Negative /uL (Negative) Urine Nitrite 1+ (Negative) H Urine Bilirubin 1+ (Negative) H Urine Urobilinogen 3 mg/dL (Negative) H Urine Leukocyte Esterase 3+ /uL (Negative) Urine RBC 13 /hpf (0 - 4) Urine WBC Clumps Present /hpf (None Seen) Urine Microscopic WBC 290 /HPF (0-5) H Urine Squamous Epithelial Cells Few /hpf (<5) Urine Bacteria Many /hpf (None Seen) H Urine Mucus Few (None Seen) Urine Glucose Normal mg/dL (Normal) Labs and/or images reviewed: Labs reviewed by me, Image(s) reviewed by me Assessment/Plan Assessment/Plan 12/01 - patient here for AICD firing discharge x2. Hospice revocation status. Patient is full code status right now. Cardiology following and waiting for interrogation of AICD Biotronik. We will continue to follows alongside with cardiology. No evidence of UTI,no urine culture. 12/02 UA was taken and showing recurrent UTI similar to her prior multiple visits. We will start ceftriaxone. Biotronik rep to come today to do device interrogation. Nurses following up. AICD discharge, LENORA on CKD, VMN likely, Acute complicated cystitis, multiple recurrences. hyperkalemia CAD, CHF, Hypertension, Hyperlipidemia, GERD, PLAN: per cards: Manage on telemetry. Continue Aspirin/Plavix. Awaiting interrogation of ICD (Biotronik). Amiodarone for now. Continue Toprol- XL/Entresto/Aldactone/Ranolazine/Atorvastatin. -concern UTI unasyn. in hospice for recurrent UTI. - continue other home medications. Diet regular DVT prophylaxis-Lovenox GI prophylaxis-tolerating p.o. Tele Full code Plan discussed with: Patient My Orders Orders - DELFINO VICENTE MD Procedure Category Date Status Time Phenazopyridine Hcl PHA 12/01/24 In Process Tablet (Pyridium Tab 22:00 Buying Agent To Assess ORDERS 12/02/24 Transmitted Pacemaker 08:47 Morphine Sulfate PHA 12/02/24 In Process Injection 16:00 Oxycodone W/ Acet PHA 12/02/24 In Process 5/325mg Tab (Percocet 16:00 Ceftriaxone 1gm/50ml PHA 12/02/24 Pending D5w (Rocephin) 16:49 Date of Service: Dec 02, 2024 Billing Provider: DELFINO VICENTE MD Common Visit Codes: 72945-[id number] INP/OBS CARE(HIGH) DELFINO VICENTE MD Dec 02, 2024 16:56
[2024-12-02] MEDS: OXYCODONE W/ ACETAMINOPHEN 5/325MG TABLET PO PRN (18:09)
[2024-12-02] MEDS: AMPICILLIN & SULBACTAM SODIUM 3 GM in SODIUM CHL 0.9% 100 ML IV SCH (18:10)
[2024-12-03] VITALS (11 sets, daily range): BP systolic 102–132; BP diastolic 37–70; PULSE 63–80; RESP 14–20; TEMP 97.7–98.7; O2SAT 96–98
--- NOTE | 2024-12-03 06:45 | DVHPN2 ---
Progress Note - Dictate Date Seen: Dec 03, 2024 Medical Necessity Reason Pt with a Central, PICC or Fol: No vital signs Vital Sign Date Time Temp Pulse Resp B/P (MAP) Pulse Ox O2 Delivery O2 Flow Rate FiO2 12/03/24 05:01 67 15 120/63 12/03/24 05:00 98.0 97 98.0 12/02/24 20:00 Nasal Cannula* 2 28 Total Intake and Output 12/02/24 12/02/24 12/03/24 15:00 23:00 07:00 Intake Total 540 ml 450 ml Balance 540 ml 450 ml medications Current Medications Medications Dose Ordered Sig/Asha Route Start Time Stop Time Status Last Admin Dose Admin Sodium Chloride 10 ml Q8HR IV 11/30/24 14:00 12/03/24 06:10 10 ML Ondansetron HCl 4 mg Q4HP PRN IV 11/30/24 08:30 12/03/24 04:27 4 MG Docusate Sodium 100 mg BIDPRN PRN PO 11/30/24 08:30 Acetaminophen 650 mg Q6HP PRN PO 11/30/24 08:30 12/01/24 21:33 650 MG Nitroglycerin 0.4 mg Q5MINP PRN SL 11/30/24 08:30 Morphine Sulfate 2 mg Q30M PRN IV 11/30/24 08:30 Ascorbic Acid 500 mg BID PO 11/30/24 10:00 12/02/24 22:27 500 MG Aspirin 81 mg DAILY PO 11/30/24 10:00 UNV Clopidogrel Bisulfate 75 mg DAILY PO 11/30/24 10:00 UNV Pantoprazole Sodium 40 mg DAILY PO 11/30/24 10:00 12/02/24 09:44 40 MG Polyethylene Glycol 17 gm DAILY PRN PO 11/30/24 08:30 Ranolazine 500 mg BID PO 11/30/24 10:00 UNV Cholecalciferol 2,000 unit BID PO 11/30/24 10:00 12/02/24 22:28 2,000 UNIT Fluoxetine HCl 20 mg DAILY PO 11/30/24 10:00 12/02/24 09:43 20 MG Patient Own Medication 1 puff BID IN 11/30/24 10:00 Patient Own Medication 1 tab DAILY PO 11/30/24 10:00 UNV Aspirin 81 mg DAILY PO 11/30/24 10:00 12/02/24 09:43 81 MG Amiodarone HCl 200 mg Q12HR PO 11/30/24 10:00 12/02/24 22:27 200 MG Spironolactone 25 mg DAILY PO 11/30/24 10:00 12/02/24 09:45 25 MG Ranolazine 500 mg BID PO 11/30/24 10:00 12/02/24 22:27 500 MG Clopidogrel Bisulfate 75 mg DAILY PO 11/30/24 10:00 12/02/24 09:45 75 MG Metoprolol Succinate 25 mg DAILY PO 11/30/24 10:00 12/02/24 09:44 25 MG Sacubitril/ Valsartan 1 tab BID PO 11/30/24 10:00 12/02/24 22:27 1 TAB Ketorolac Tromethamine 15 mg Q6HPRN PRN IV 11/30/24 12:45 12/05/24 12:44 12/02/24 11:03 15 MG Phenazopyridine HCl 100 mg BID PO 12/01/24 22:00 12/02/24 22:27 100 MG Morphine Sulfate 2 mg Q4HPRN PRN IV 12/02/24 16:00 12/03/24 04:31 2 MG Oxycodone/ Acetaminophen 2 tab Q6HP PRN PO 12/02/24 16:00 12/03/24 06:00 2 TAB Ampicillin Sodium/ Sulbactam Sodium 3 gm/Sodium Chloride 100 ml @ 100 mls/hr Q6H IV 12/02/24 17:00 12/03/24 04:39 100 MLS/HR laboratory and microbiology Laboratory Tests 12/02/24 07:13 Test 12/02/24 07:13 Range/Units Serum Glucose 100 74-106 mg/dL Assessment/Plan Patient is a 79 year female was 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 She herself mentions she was alert and lying in bed when this happened. Denies any chest pain prior to. Denies any shortness of breath prior showed. Mentions some lightheadedness prior to the episode. There is questionable nausea feeding prior to the episode. She also remembers stent a 2nd episode happened few minutes later without any warning signs. Cardiology is involved for cardiac aspects of care. She is known to our practice from before. She does have history of systolic heart failure. Serial high sensitive troponin has been negative. Lying comfortably flat in bed, no JVD, pink and wet mucosa, no carotid bruit, no goiter, lungs: Not using accessory muscles of breathing, lungs reveal scattered rhonchi, cardiac: Regular regular, no thrill/gallop, 2+murmur in apex, abdomen: Soft, no hepatomegaly, some suprapubic and upper epigastric tenderness is positive, no rebound tenderness, extremities: No edema, dorsalis pedis is 2+ bilateral. Right femoral/groin area with no hematoma. Past medical history includes hypertension, hyperlipidemia, coronary artery disease, history of CABG (2010), systolic heart failure, ischemic cardiomyopathy, gout, kidney stone, s/p ESWL, frequent UTI, history of CVA, Diverticulosis, COPD, s/p COVID, depression, Anxiety, GERD, history of appendectomy/hysterectomy/tonsillectomy, and history of BiV ICD (Biotronik) implantation. She is chronically wheelchair-bound. She was previously in hospice for heart failure. She is allergic to codeine. She quit smoking years ago. She is DNR. She also has diagnosis of parkinsonism. Cardiac catheterization of August 26, 2024 (performed in [facility]) revealed triple-vessel [place] coronary artery disease. GRAVEL WHEELER of obtuse marginal. GRAVEL WHEELER of RCA. Lad with 75% lesion and status post drug-eluting stent deployment. It is of note that there is patent SVG to obtuse marginal and also patent SVG to RCA. Cardiac catheterization of September 2020 revealed ejection fraction of 20%, GRAVEL WHEELER of SVG to diagonal, patent TAN, patent SVG to OM, patent SVG to PDA and GRAVEL WHEELER of RCA. Echocardiogram of September 04, 2024 reported: Dilated left ventricle. LVEF of 10%. Increased EDP. Pacing wire in right-sided chambers. Mild mitral regurgitation. As there was no good tricuspid regurgitation jet, right ventricular systolic pressure could not be estimated Echocardiogram of August 25, 2024 (performed in [facility]) for PE old ejection fraction of 20% Echocardiogram of reported: LV EF of 15-20%, biatrial enlargement, pacing wire in the right-sided chambers. Echocardiogram of November 22, 2023 revealed: Dilated left ventricle, LVEF of 10%, pacing wire and right-sided chambers, mild mitral regurgitation. Echocardiogram of August 28, 2023 revealed: Dilated left ventricle with significantly reduced systolic function. LVEF of 20%. Elevated LVEDP, dilated four chambers. Pacing wire was seen in right-sided chamber. [id number] MR. Echocardiogram of January 03, 2023 revealed ejection fraction of 20 to 25% and mild left ventricular enlargement Echocardiogram of March 25, 2023 (performed in the office) revealed four- chamber dilatation, LVEF of 20 to 25%, mild to moderate MR, mild TR, trace pulmonary valve insufficiency and right ventricular systolic pressure of 35 mmHg Echocardiogram of March 21, 2022 revealed ejection fraction of around 20%, mild MR/TR Echocardiogram of February 17, 2021 revealed dilated LV, LVEF around 25%, severe diffuse hypokinesis, increased LVEDP, dilated left and right atria, mild to moderate MR, mild TR. Echocardiogram of December 30, 2020 reported ejection fraction less than 20% and dilated left atrium. Echocardiogram of August 2020 revealed ejection fraction less than 25%, right atrial enlargement, left atrial enlargement and moderate MR. Creatinine: 1.17 - 1.47 - 1.48 - 1.57 Potassium: 4.3 - 5.2 - 5.1 - 146 M.1 Troponin (high sensitive): 33 - 31 - 28 BNP: 618.59 TSH: 1.32 D-Dimer: 0.33 Chest x-ray reported: IMPRESSION: Mild pulmonary vascular congestion EKG reviewed: Revealed sinus rhythm with paced ventricular rhythm Tele revealed: A sense V paced rhythm Echocardiogram revealed: Left ventricle: Dilated left ventricle was observed. Diffuse hypokinesis of left ventricle with regional variation was seen. The LVEF was around 10%. Filling pressure of left ventricle was increased. Right ventricle was not well-visualized. Systolic function of right ventricle was reduced. Both atria were normal sized. Pacing wire in the right sided chambers was seen. Aortic valve was not well visualized. There was no aortic insufficiency/emesis. There was mild mitral regurgitation. There was trace tricuspid regurgitation. Pulmonary valve was not well visualized. As there was no acute tricuspid regurgitation jet, right ventricular systolic pressure could not be estimated. There was no pericardial effusion. [employer] BiV-ICD interrogation: DDDR/BiV: 70/130; Battery voltage: 2.89 volts; Remaining battery capacity: 57%; Underlying rhythm: Normal sinus rhythm, rate: 64 bpm; Sensing amplitude: A3.4/RV17.3/LV7.5 mV; Pacing threshold: A0.7/RV1.0/LV2.6 volts; Pacing impedance: A560/RV423/LV579 Ohms; Shock impedance: RV82 Ohms; Pacing A/LV/BiV/ORGAN BUILDER: 41/1/98/99%; Atrial burden: 0.0%; No recent tachycardia recordings; No therapy delivered by ICD; Normal functioning BiV-ICD, no recent events, no therapy delivered by ICD, no recent AFib Patient is a 79-year-old female presented with post ICD firing. Denies any chest pain prior to the episode. Mentions compliance with medications. Serial high sensitive troponin has been negative and acute coronary syndrome is not considered. Patient had recent ischemic workup/cardiac catheterization and repeat ischemic workup is not indicated at this point. To restart outside medications and will add amiodarone at this point. Patient is on dual antiplatelet therapy for previously implanted stent. To be kept on aspirin/Plavix. Does have baseline history of ischemic/systolic heart failure which at this point is considered compensated. She is DNR. Does complain of dysuria and has history of UTIs (not new). Interrogation of ICD was performed and ruled out any recent episode or treatment. ICD firing (as per patient), Interrogation of ICD ruled out any recent episode and shock Ischemic cardiomyopathy, history of Systolic CHF s/p BiV-ICD implantation Coronary artery disease, status post CABG Status post PCI Diverticular disease Renal calculi Emphysema Kidney stone, history of Coronary artery disease, SP CABG GERD Hypertension Hyperlipidemia Gout Constipation UTI Cardiac suggestion for management: Manage on telemetry Follow-up electrolytes and kidney function tests and correct abnormalities. Keep potassium above 4 and magnesium above 2 Continue Aspirin/Plavix Decrease Amiodarone to 100 mg HS Continue Toprol-XL/Entresto/Aldactone/Ranolazine/Atorvastatin Evaluation and management of UTI/dysuria as per primary Cardiac monge, can be followed as outpatient Further evaluation and management depends on the above and clinical course A total of 55 minutes was spent reviewing the patient record, examining the patient, making a diagnostic and therapeutic plan, discussing this plan with medical personnel, following up on diagnostic studies and following the patient for clinical stability excluding any and all procedures. At least 50% of this time was spent in direct, [id number] contact. Thank you for allowing me to participate in this patient's care. Further recommendations will depend on patient's clinical course. Please do not hesitate to contact me if you have any questions or concerns. This medical document was created using electronic medical record system with [employer] computerized dictation system. Although this document has been carefully reviewed, there may still be some phonetic and typographical errors. These areas are purely typographical due to the imperfection of the software programs, and do not reflect any compromise in the patient's medical care. Plan discussed with: Patient, Other (nurse) RODRIGUEZ LEBRON MD Dec 03, 2024 06:45
[2024-12-03 07:32] LABS: Hematocrit 40.9 % (36.0-46.0); Hemoglobin 13.6 g/dL (12.2-16.2); Mean Corpuscular Hemoglobin 29.7 pg (28.0-32.0); Mean Corpuscular Volume 89.6 fL (80.0-100.0); Nucleated Red Blood Cells % 0.0 %
--- NOTE | 2024-12-03 08:05 | DVHNC2 ---
Procedure - [employer] BiV-ICD interrogation: DDDR/BiV: 70/130 Battery voltage: 2.89 volts Remaining battery capacity: 57% Underlying rhythm: Normal sinus rhythm, rate: 64 bpm Sensing amplitude: A3.4/RV17.3/LV7.5 mV PC threshold: A0.7/RV1.0/LV2.6 volts Pacing impedance: A560/RV423/LV579 Ohms Shock impedance: RV82 Ohms Pacing A/LV/BiV/FLANGING MACHINE OPERATOR: 41/1/98/99% Atrial burden: 0.0% No recent tachycardia recordings No therapy delivered by ICD Normal functioning BiV-ICD, no recent events, no therapy delivered by ICD, no recent AFib RODRIGUEZ LEBRON MD Dec 03, 2024 08:05
[2024-12-03] MEDS: IPRATROPIUM BROM 0.5 MG/2.5ML INH SOL NEB PRN (20:11)
[2024-12-03] MEDS: ALBUTEROL SULF 2.5 MG/0.5ML(0.5%) NEB SOLN NEB PRN (20:11)
[2024-12-03] MEDS: AMIODARONE HCL 200 MG TAB PO SCH (22:28)
[2024-12-04] VITALS (11 sets, daily range): BP systolic 101–123; BP diastolic 56–99; PULSE 61–74; RESP 16–19; TEMP 97.6–98.6; O2SAT 94–99
--- NOTE | 2024-12-04 07:46 | DVHPN2 ---
Progress Note - Dictate Date Seen: Dec 04, 2024 Medical Necessity Reason Pt with a Central, PICC or Fol: No vital signs Vital Sign Date Time Temp Pulse Resp B/P (MAP) Pulse Ox O2 Delivery O2 Flow Rate FiO2 12/04/24 05:00 98.0 74 16 101/64 (76) 94 98.0 12/03/24 20:15 2.0 28 12/03/24 20:11 Nasal Cannula* Total Intake and Output 12/03/24 12/03/24 12/04/24 15:00 23:00 07:00 Intake Total 100 ml 945 ml 1145 ml Output Total 350 ml Balance 100 ml 945 ml 795 ml medications Current Medications Medications Dose Ordered Sig/Asha Route Start Time Stop Time Status Last Admin Dose Admin Sodium Chloride 10 ml Q8HR IV 11/30/24 14:00 12/04/24 05:27 10 ML Ondansetron HCl 4 mg Q4HP PRN IV 11/30/24 08:30 12/04/24 03:16 4 MG Docusate Sodium 100 mg BIDPRN PRN PO 11/30/24 08:30 Acetaminophen 650 mg Q6HP PRN PO 11/30/24 08:30 12/01/24 21:33 650 MG Nitroglycerin 0.4 mg Q5MINP PRN SL 11/30/24 08:30 Morphine Sulfate 2 mg Q30M PRN IV 11/30/24 08:30 Ascorbic Acid 500 mg BID PO 11/30/24 10:00 12/03/24 22:26 500 MG Aspirin 81 mg DAILY PO 11/30/24 10:00 UNV Clopidogrel Bisulfate 75 mg DAILY PO 11/30/24 10:00 UNV Pantoprazole Sodium 40 mg DAILY PO 11/30/24 10:00 12/03/24 09:21 40 MG Polyethylene Glycol 17 gm DAILY PRN PO 11/30/24 08:30 Ranolazine 500 mg BID PO 11/30/24 10:00 UNV Cholecalciferol 2,000 unit BID PO 11/30/24 10:00 12/03/24 22:26 2,000 UNIT Fluoxetine HCl 20 mg DAILY PO 11/30/24 10:00 12/03/24 09:23 20 MG Patient Own Medication 1 puff BID IN 11/30/24 10:00 Patient Own Medication 1 tab DAILY PO 11/30/24 10:00 UNV Aspirin 81 mg DAILY PO 11/30/24 10:00 12/03/24 09:24 81 MG Spironolactone 25 mg DAILY PO 11/30/24 10:00 12/03/24 09:23 25 MG Ranolazine 500 mg BID PO 11/30/24 10:00 12/03/24 22:26 500 MG Clopidogrel Bisulfate 75 mg DAILY PO 11/30/24 10:00 12/03/24 09:23 75 MG Metoprolol Succinate 25 mg DAILY PO 11/30/24 10:00 12/03/24 09:22 25 MG Sacubitril/ Valsartan 1 tab BID PO 11/30/24 10:00 12/03/24 22:27 1 TAB Ketorolac Tromethamine 15 mg Q6HPRN PRN IV 11/30/24 12:45 12/05/24 12:44 12/03/24 16:37 15 MG Phenazopyridine HCl 100 mg BID PO 12/01/24 22:00 12/03/24 22:27 100 MG Morphine Sulfate 2 mg Q4HPRN PRN IV 12/02/24 16:00 12/04/24 03:19 2 MG Oxycodone/ Acetaminophen 2 tab Q6HP PRN PO 12/02/24 16:00 12/03/24 06:00 2 TAB Ampicillin Sodium/ Sulbactam Sodium 3 gm/Sodium Chloride 100 ml @ 100 mls/hr Q6H IV 12/02/24 17:00 12/04/24 05:27 100 MLS/HR Amiodarone HCl 100 mg HS PO 12/03/24 22:00 12/03/24 22:28 100 MG Albuterol 2.5 mg Q6HPRN PRN NEB 12/03/24 17:00 12/03/24 20:11 2.5 MG Ipratropium [place] 0.5 mg Q6HPRN PRN NEB 12/03/24 17:00 12/03/24 20:11 0.5 MG laboratory and microbiology Laboratory Tests 12/03/24 05:18 12/02/24 07:13 Test 12/02/24 07:13 Range/Units Serum Glucose 100 74-106 mg/dL Assessment/Plan Patient is a 79 year female was 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 She herself mentions she was alert and lying in bed when this happened. Denies any chest pain prior to. Denies any shortness of breath prior showed. Mentions some lightheadedness prior to the episode. There is questionable nausea feeding prior to the episode. She also remembers stent a 2nd episode happened few minutes later without any warning signs. Cardiology is involved for cardiac aspects of care. She is known to our practice from before. She does have history of systolic heart failure. Serial high sensitive troponin has been negative. Lying comfortably flat in bed, no JVD, pink and wet mucosa, no carotid bruit, no goiter, lungs: Not using accessory muscles of breathing, lungs reveal scattered rhonchi, cardiac: Regular regular, no thrill/gallop, 2+murmur in apex, abdomen: Soft, no hepatomegaly, some suprapubic and upper epigastric tenderness is positive, no rebound tenderness, extremities: No edema, dorsalis pedis is 2+ bilateral. Right femoral/groin area with no hematoma. Past medical history includes hypertension, hyperlipidemia, coronary artery disease, history of CABG (2010), systolic heart failure, ischemic cardiomyopathy, gout, kidney stone, s/p ESWL, frequent UTI, history of CVA, Diverticulosis, COPD, s/p COVID, depression, Anxiety, GERD, history of appendectomy/hysterectomy/tonsillectomy, and history of BiV ICD (Biotronik) implantation. She is chronically wheelchair-bound. She was previously in hospice for heart failure. She is allergic to codeine. She quit smoking years ago. She is DNR. She also has diagnosis of parkinsonism. Cardiac catheterization of August 26, 2024 (performed in [facility]) revealed triple-vessel [place] coronary artery disease. RECEIVING SUPERVISOR of obtuse marginal. RECEIVING SUPERVISOR of RCA. Lad with 75% lesion and status post drug-eluting stent deployment. It is of note that there is patent SVG to obtuse marginal and also patent SVG to RCA. Cardiac catheterization of September 2020 revealed ejection fraction of 20%, RECEIVING SUPERVISOR of SVG to diagonal, patent TAN, patent SVG to OM, patent SVG to PDA and RECEIVING SUPERVISOR of RCA. Echocardiogram of September 04, 2024 reported: Dilated left ventricle. LVEF of 10%. Increased EDP. Pacing wire in right-sided chambers. Mild mitral regurgitation. As there was no good tricuspid regurgitation jet, right ventricular systolic pressure could not be estimated Echocardiogram of August 25, 2024 (performed in [facility]) for PE old ejection fraction of 20% Echocardiogram of reported: LV EF of 15-20%, biatrial enlargement, pacing wire in the right-sided chambers. Echocardiogram of November 22, 2023 revealed: Dilated left ventricle, LVEF of 10%, pacing wire and right-sided chambers, mild mitral regurgitation. Echocardiogram of August 28, 2023 revealed: Dilated left ventricle with significantly reduced systolic function. LVEF of 20%. Elevated LVEDP, dilated four chambers. Pacing wire was seen in right-sided chamber. [id number] MR. Echocardiogram of January 03, 2023 revealed ejection fraction of 20 to 25% and mild left ventricular enlargement Echocardiogram of March 25, 2023 (performed in the office) revealed four- chamber dilatation, LVEF of 20 to 25%, mild to moderate MR, mild TR, trace pulmonary valve insufficiency and right ventricular systolic pressure of 35 mmHg Echocardiogram of March 21, 2022 revealed ejection fraction of around 20%, mild MR/TR Echocardiogram of February 17, 2021 revealed dilated LV, LVEF around 25%, severe diffuse hypokinesis, increased LVEDP, dilated left and right atria, mild to moderate MR, mild TR. Echocardiogram of December 30, 2020 reported ejection fraction less than 20% and dilated left atrium. Echocardiogram of August 2020 revealed ejection fraction less than 25%, right atrial enlargement, left atrial enlargement and moderate MR. Creatinine: 1.17 - 1.47 - 1.48 - 1.57 Potassium: 4.3 - 5.2 - 5.1 - 146 M.1 Troponin (high sensitive): 33 - - 28 BNP: 618.59 TSH: 1.32 D-Dimer: 0.33 Chest x-ray reported: IMPRESSION: Mild pulmonary vascular congestion EKG reviewed: Revealed sinus rhythm with paced ventricular rhythm Tele revealed: A sense V paced rhythm Echocardiogram revealed: Left ventricle: Dilated left ventricle was observed. Diffuse hypokinesis of left ventricle with regional variation was seen. The LVEF was around 10%. Filling pressure of left ventricle was increased. Right ventricle was not well-visualized. Systolic function of right ventricle was reduced. Both atria were normal sized. Pacing wire in the right sided chambers was seen. Aortic valve was not well visualized. There was no aortic insufficiency/emesis. There was mild mitral regurgitation. There was trace tricuspid regurgitation. Pulmonary valve was not well visualized. As there was no acute tricuspid regurgitation jet, right ventricular systolic pressure could not be estimated. There was no pericardial effusion. [employer] BiV-ICD interrogation: DDDR/BiV: 70/130; Battery voltage: 2.89 volts; Remaining battery capacity: 57%; Underlying rhythm: Normal sinus rhythm, rate: 64 bpm; Sensing amplitude: A3.4/RV17.3/LV7.5 mV; Pacing threshold: A0.7/RV1.0/LV2.6 volts; Pacing impedance: A560/RV423/LV579 Ohms; Shock impedance: RV82 Ohms; Pacing A/LV/BiV/INSULATOR TESTER: 41/1/98/99%; Atrial burden: 0.0%; No recent tachycardia recordings; No therapy delivered by ICD; Normal functioning BiV-ICD, no recent events, no therapy delivered by ICD, no recent AFib Patient is a 79-year-old female presented with post ICD firing. Denies any chest pain prior to the episode. Mentions compliance with medications. Serial high sensitive troponin has been negative and acute coronary syndrome is not considered. Patient had recent ischemic workup/cardiac catheterization and repeat ischemic workup is not indicated at this point. To restart outside medications and will add amiodarone at this point. Patient is on dual antiplatelet therapy for previously implanted stent. To be kept on aspirin/Plavix. Does have baseline history of ischemic/systolic heart failure which at this point is considered compensated. She is DNR. Does complain of dysuria and has history of UTIs (not new). Interrogation of ICD was performed and ruled out any recent episode or treatment. ICD firing (as per patient), Interrogation of ICD ruled out any recent episode and shock Ischemic cardiomyopathy, history of Systolic CHF s/p BiV-ICD implantation Coronary artery disease, status post CABG Status post PCI Diverticular disease Renal calculi Emphysema Kidney stone, history of Coronary artery disease, SP CABG GERD Hypertension Hyperlipidemia Gout Constipation UTI Cardiac suggestion for management: Manage on telemetry Follow-up electrolytes and kidney function tests and correct abnormalities. Keep potassium above 4 and magnesium above 2 Continue Aspirin/Plavix Decrease Amiodarone to 100 mg HS Continue Toprol-XL/Entresto/Aldactone/Ranolazine/Atorvastatin Evaluation and management of UTI/dysuria as per primary Cardiac monge, can be followed as outpatient Further evaluation and management depends on the above and clinical course A total of 55 minutes was spent reviewing the patient record, examining the patient, making a diagnostic and therapeutic plan, discussing this plan with medical personnel, following up on diagnostic studies and following the patient for clinical stability excluding any and all procedures. At least 50% of this time was spent in direct, [id number] contact. Thank you for allowing me to participate in this patient's care. Further recommendations will depend on patient's clinical course. Please do not hesitate to contact me if you have any questions or concerns. This medical document was created using electronic medical record system with [employer] computerized dictation system. Although this document has been carefully reviewed, there may still be some phonetic and typographical errors. These areas are purely typographical due to the imperfection of the software programs, and do not reflect any compromise in the patient's medical care. Plan discussed with: Patient, Other (nurse) RODRIGUEZ LEBRON MD Dec 04, 2024 07:46
--- NOTE | 2024-12-04 10:04 | DVHPN2 ---
Subjective Patient doing well, no complaints of firing of AICD currently. Reviewed: H&P Changes from previous H/P or p: No Changes General: Per HPI Eyes: No Pain, No Vision change, No Conjunctivae inflammation, No Eyelid inflammation, No Other, No Redness ENT: No Ear pain, No Ear discharge, No Nose pain, No Nose discharge, No Nose congestion, No Mouth pain, No Mouth swelling, No Throat pain, No Throat swelling, No Other Cardiovascular: Chest Pain; No Palpitations, No Orthopnea, No Paroxysmal Noc. Dyspnea, No Edema, No Lt Headedness, No Other Respiratory: No Cough, No Dry, No Shortness of breath, No SOB with excertion, No Wheezing, No Hemoptysis, No Pleuritic Pain, No Sputum, No Other Gastrointestinal: No Nausea, No Vomiting, No Abdominal Pain, No Diarrhea, No Constipation, No Melena, No Hematochezia, No Other Genitourinary: No Dysuria, No Frequency, No Incontinence, No Hematuria, No Retention, No Other Musculoskeletal: No other, No neck pain, No shoulder pain, No arm pain, No back pain, No hand pain, No leg pain, No foot pain Skin: No Rash, No Lesions, No Jaundice, No Bruising, No Other Objective Vitals Vital Signs Date Time Temp Pulse Resp B/P (MAP) Pulse Ox O2 Delivery O2 Flow Rate FiO2 12/04/24 09:00 97.9 69 18 110/56 (74) 95 97.9 12/04/24 08:00 Nasal Cannula* 2 28 Intake/Output Intake and Output 12/04/24 07:00 Intake Total 2190 ml Output Total 350 ml Balance 1840 ml Intake Oral 1790 ml IV Total 400 ml Output Urine Total 350 ml # Voids 2 Exam GEN: Healthy appearing, well-developed, NAD. HEENT: NC/AT; MMM. CV: RRR, no m/r/g. LUNGS: CTAB, no w/r/c. ABD: Soft, NT/ND, NBS, no masses or organomegaly. EXT: skin Warm, well perfused. no rashes. No clubbing, cyanosis, or edema. NEURO: Ambulating with no limitations. No focal deficits. Medications Current Medications Medications Dose Ordered Sig/Asha Route Start Time Stop Time Status Last Admin Dose Admin Sodium Chloride 10 ml Q8HR IV 11/30/24 14:00 12/04/24 05:27 10 ML Ondansetron HCl 4 mg Q4HP PRN IV 11/30/24 08:30 12/04/24 03:16 4 MG Docusate Sodium 100 mg BIDPRN PRN PO 11/30/24 08:30 Acetaminophen 650 mg Q6HP PRN PO 11/30/24 08:30 12/01/24 21:33 650 MG Nitroglycerin 0.4 mg Q5MINP PRN SL 11/30/24 08:30 Morphine Sulfate 2 mg Q30M PRN IV 11/30/24 08:30 Ascorbic Acid 500 mg BID PO 11/30/24 10:00 12/03/24 22:26 500 MG Aspirin 81 mg DAILY PO 11/30/24 10:00 UNV Clopidogrel Bisulfate 75 mg DAILY PO 11/30/24 10:00 UNV Pantoprazole Sodium 40 mg DAILY PO 11/30/24 10:00 12/03/24 09:21 40 MG Polyethylene Glycol 17 gm DAILY PRN PO 11/30/24 08:30 Ranolazine 500 mg BID PO 11/30/24 10:00 UNV Cholecalciferol 2,000 unit BID PO 11/30/24 10:00 12/03/24 22:26 2,000 UNIT Fluoxetine HCl 20 mg DAILY PO 11/30/24 10:00 12/03/24 09:23 20 MG Patient Own Medication 1 puff BID IN 11/30/24 10:00 Patient Own Medication 1 tab DAILY PO 11/30/24 10:00 UNV Aspirin 81 mg DAILY PO 11/30/24 10:00 12/03/24 09:24 81 MG Spironolactone 25 mg DAILY PO 11/30/24 10:00 12/03/24 09:23 25 MG Ranolazine 500 mg BID PO 11/30/24 10:00 12/03/24 22:26 500 MG Clopidogrel Bisulfate 75 mg DAILY PO 11/30/24 10:00 12/03/24 09:23 75 MG Metoprolol Succinate 25 mg DAILY PO 11/30/24 10:00 12/03/24 09:22 25 MG Sacubitril/ Valsartan 1 tab BID PO 11/30/24 10:00 12/03/24 22:27 1 TAB Ketorolac Tromethamine 15 mg Q6HPRN PRN IV 11/30/24 12:45 12/05/24 12:44 12/03/24 16:37 15 MG Phenazopyridine HCl 100 mg BID PO 12/01/24 22:00 12/03/24 22:27 100 MG Morphine Sulfate 2 mg Q4HPRN PRN IV 12/02/24 16:00 12/04/24 03:19 2 MG Oxycodone/ Acetaminophen 2 tab Q6HP PRN PO 12/02/24 16:00 12/03/24 06:00 2 TAB Ampicillin Sodium/ Sulbactam Sodium 3 gm/Sodium Chloride 100 ml @ 100 mls/hr Q6H IV 12/02/24 17:00 12/04/24 05:27 100 MLS/HR Amiodarone HCl 100 mg HS PO 12/03/24 22:00 12/03/24 22:28 100 MG Albuterol 2.5 mg Q6HPRN PRN NEB 12/03/24 17:00 12/03/24 20:11 2.5 MG Ipratropium [place] 0.5 mg Q6HPRN PRN NEB 12/03/24 17:00 12/03/24 20:11 0.5 MG Laboratory Results Laboratory Tests 12/02/24 07:13 12/03/24 05:18 Urinalysis Test 12/02/24 05:51 Urine Color Dark-brown (Yellow) Urine Clarity Turbid (Clear) H Urine pH 5.5 (5.0-9.0) Urine Specific [place] 1.031 (1.001-1.035) Urine Protein Trace (Negative) H Urine Ketones Negative (Negative) Urine Blood Negative /uL (Negative) Urine Nitrite 1+ (Negative) H Urine Bilirubin 1+ (Negative) H Urine Urobilinogen 3 mg/dL (Negative) H Urine Leukocyte Esterase 3+ /uL (Negative) Urine RBC 13 /hpf (0 - 4) Urine WBC Clumps Present /hpf (None Seen) Urine Microscopic WBC 290 /HPF (0-5) H Urine Squamous Epithelial Cells Few /hpf (<5) Urine Bacteria Many /hpf (None Seen) H Urine Mucus Few (None Seen) Urine Glucose Normal mg/dL (Normal) Microbiology Microbiology Date/Time Source Procedure Growth Status 12/02/24 05:51 Urine - Midstream Clean Catch Urine Culture - Preliminary Resulted Labs and/or images reviewed: Labs reviewed by me, Image(s) reviewed by me Assessment/Plan Assessment/Plan Note for 12/03/2024 7/8 - patient here for AICD firing discharge x2. Hospice revocation status. Patient is full code status right now. Cardiology following and waiting for interrogation of AICD [employer]. We will continue to follows alongside with cardiology. No evidence of UTI,no urine culture. 12/02 UA was taken and showing recurrent UTI similar to her prior multiple visits. We will start ceftriaxone. [employer] rep to come today to do device interrogation. Nurses following up. 12/03 urine culture has not resulted. Device interrogation is unconcerning. Patient wants to go back to hospice we will touch base with social. AICD discharge, LENORA on CKD, VMN likely, Acute complicated cystitis, multiple recurrences. hyperkalemia CAD, CHF, Hypertension, Hyperlipidemia, GERD, PLAN: per cards: Manage on telemetry. Continue Aspirin/Plavix. Awaiting interrogation of ICD ([employer]ron[employer]). Amiodarone for now. Continue Toprol- XL/Entresto/Aldactone/Ranolazine/Atorvastatin. -concern UTI unasyn. in hospice for recurrent UTI. - continue other home medications. Diet regular DVT prophylaxis-Lovenox GI prophylaxis-tolerating p.o. Tele Full code Note for 12/03/2024 Plan discussed with: Patient My Orders Orders - DELFINO VICENTE MD Procedure Category Date Status Time Albuterol Medneb PHA 12/03/24 In Process (Ventolin Medneb) 17:00 Ipratropium Medneb PHA 12/03/24 In Process (Atrovent Medneb) 17:00 Cont Med Neb Intial Tx RT 12/03/24 Logged 16:50 Date of Service: Dec 03, 2024 Billing Provider: DELFINO VICENTE MD Common Visit Codes: [id number] INP/OBS CARE(HIGH) DELFINO VICENTE MD Dec 04, 2024 10:04
--- NOTE | 2024-12-04 18:56 | DVHDS2 ---
Discharge Summary Date of Admission Nov 30, 2024 at 08:20 Date of Discharge: Dec 04, 2024 Labs/Diagnostic Data: Laboratory Results Test 12/03/24 05:18 12/02/24 07:13 12/02/24 05:51 12/01/24 10:21 White Blood Count 14.6 10^3/uL (4.4-10.8) Red Blood Count 4.57 10^6/uL (4.0-5.20) Hemoglobin 13.6 g/dL (12.2-16.2) Hematocrit 40.9 % (36.0-46.0) Mean Corpuscular Volume 89.6 fL (80.0-100.0) Mean Corpuscular Hemoglobin 29.7 pg (28.0-32.0) Mean Corpuscular Hemoglobin Concent 33.1 g/dL (32.0-36.0) Red Cell Distribution Width 16.5 % (11.8-14.3) Platelet Count 228 10^3/uL (140-450) Mean Platelet Volume 8.7 fL (6.9-10.8) Neutrophils (%) (Auto) 80.1 % (37.0-80.0) Lymphocytes (%) (Auto) 11.3 % (10.0-50.0) Monocytes (%) (Auto) 7.1 % (0.0-12.0) Eosinophils (%) (Auto) 1.3 % (0.0-7.0) Basophils (%) (Auto) 0.2 % (0.0-2.0) Neutrophils # (Auto) 11.7 10 ^3/uL (1.6-8.6) Lymphocytes # (Auto) 1.7 10 ^3/uL (0.4-5.4) Monocytes # (Auto) 1.0 10 ^3/uL (0-1.3) Eosinophils # (Auto) 0.2 10 ^3/uL (0-0.8) Basophils # (Auto) 0 10 ^3/uL (0-0.2) Nucleated Red Blood Cells 0.0 % Sodium Level 146 mmol/L (136-145) Potassium Level 4.7 mmol/L (3.5-5.1) Chloride Level 114 mmol/L (98-107) Carbon Dioxide Level 22 mmol/L (20-31) Anion Gap 10 (5-15) Blood Urea Nitrogen 36 mg/dL (9-23) Creatinine 1.57 mg/dL (0.550-1.02) Glomerular Filtration Rate Calc 33 mL/min (>90) BUN/Creatinine Ratio 22.9 (10.0-20.0) Serum Glucose 100 mg/dL (74-106) Calcium Level 10.1 mg/dL (8.7-10.4) Urine Color Dark-brown (Yellow) Urine Clarity Turbid (Clear) Urine pH 5.5 (5.0-9.0) Urine Specific [place] 1.031 (1.001-1.035) Urine Protein Trace (Negative) Urine Ketones Negative (Negative) Urine Blood Negative /uL (Negative) Urine Nitrite 1+ (Negative) Urine Bilirubin 1+ (Negative) Urine Urobilinogen 3 mg/dL (Negative) Urine Leukocyte Esterase 3+ /uL (Negative) Urine RBC 13 /hpf (0 - 4) Urine WBC Clumps Present /hpf (None Seen) Urine Microscopic WBC 290 /HPF (0-5) Urine Squamous Epithelial Cells Few /hpf (<5) Urine Bacteria Many /hpf (None Seen) Urine Mucus Few (None Seen) Urine Glucose Normal mg/dL (Normal) Total Bilirubin 0.5 mg/dL (0.2-1.0) Aspartate Amino Transferase (AST) 23 U/L (13-40) Alanine Aminotransferase (ALT) 14 U/L (7-40) Alkaline Phosphatase 75 U/L (46-116) Total Protein 6.0 g/dL (5.7-8.2) Albumin 4.3 g/dL (3.2-4.8) Test 11/30/24 09:48 11/30/24 05:53 11/30/24 02:57 D-Dimer, Quantitative 0.33 mg/L FEU (0.0-0.49) Magnesium Level 2.1 mg/dL (1.6-2.6) Thyroid Stimulating Hormone (TSH) 1.32 uIU/mL (0.55-4.78) Troponin I High Sensitivity 28 ng/L (</=34) B-Type Natriuretic Peptide 618.59 pg/mL (0-100) Other Laboratory Tests 12/03/24 05:18 12/02/24 07:13 Brief Hx & Hospital Course: History of Present Illness Niya Scott is an 79-year-old female with past medical history of hypertension, hyperlipidemia, CHF, coronary artery disease, CABG, STEMI in September 2024, PTCA 2024, AICD, GERD, CVA, and GERD who came to the hospital due to her AICD firing. Patient states she called for EMS after her AICD fired twice this morning. She states it has never done that before. She states she has been experiencing chest pain for the last couple of weeks. She did have chest pain this morning prior to it firing. She also states that she felt dizzy. Summary: 12/01 - patient here for AICD firing discharge x2. Hospice revocation status. Patient is full code status right now. Cardiology following and waiting for interrogation of AICD [employer]. We will continue to follows alongside with cardiology. No evidence of UTI,no urine culture. 12/02 UA was taken and showing recurrent UTI similar to her prior multiple visits. We will start ceftriaxone. [employer] rep to come today to do device interrogation. Nurses following up. 12/03 urine culture has not resulted. Device interrogation is unconcerning. Patient wants to go back to hospice we will touch base with social. 12/04- patient doing well today. She complains of some growing pain which will be controlled with p.r.n. pain control. Cardiology has reviewed the case in his ready for discharge patient with outpatient follow up. Her urine symptoms appear to be improving,. Cultures multi floor and will be have to based on prior urine cultures. Patient is stable for discharge as per plan below. Discharge diagnosis: AICD discharge Ruled out arrhythmias ruled out LENORA on CKD, VMN likely, Acute complicated cystitis, multiple recurrences. hyperkalemia, resolved Hypertension, Hyperlipidemia, GERD, Ischemic cardiomyopathy, history of Systolic CHF s/p BiV-ICD implantation Coronary artery disease, status post CABG Status post PCI hx Diverticular disease Coronary artery disease, SP CABG GERD Gout discharge plan: -can return to primary residence foremost with hospice care as prior. -Social work consulted to help patient back to primary residence. -Take Macrobid 100 mg twice daily for 7 days -Take Keflex 500 mg twice daily for 7 days -Increase amiodarone 200 nightly -Continue Toprol-XL/Entresto/Aldactone/Ranolazine/Atorvastatin -continue other home medications not mentioned above -Follow up with PCP to review discharge Condition at Discharge: Guarded Final Diagnosis/Problems List Discharge diagnosis: AICD discharge Ruled out arrhythmias ruled out LENORA on CKD, VMN likely, Acute complicated cystitis, multiple recurrences. hyperkalemia, resolved Hypertension, Hyperlipidemia, GERD, Ischemic cardiomyopathy, history of Systolic CHF s/p BiV-ICD implantation Coronary artery disease, status post CABG Status post PCI hx Diverticular disease Coronary artery disease, SP CABG GERD Gout Discharge Disposition: Snf Facility Discharge Instruct/Medications Diet: Cardiac 2g Na,low cholest Activity: No Restrictions, As Tolerated Follow Up/Referral: See below Medications: See below Scheduled Acetaminophen (Acetaminophen), 650 MG PO TID Ascorbic Acid (Vitamin C Tablet), 1 TAB PO BID, (Reported) Aspirin (Aspir-Low), 1 TAB PO DAILY, (Reported) Atorvastatin Calcium (Atorvastatin Calcium), 40 MG PO HS Cholecalciferol (Vitamin D3), 1 TAB PO BID, (Reported) Clopidogrel Bisulfate (Clopidogrel), 75 MG PO DAILY Duloxetine Hydrochloride (Duloxetine Hydrochloride), 30 MG PO DAILY Fluoxetine HCl (Pmdd) (Fluoxetine HCl), 20 MG PO DAILY, (Reported) Fluticasone-Salmeterol (Fluticasone Propionate/SA 250-50 Mcg/Dose), 1 PUFF INH BID, (Reported) Metoprolol Succinate (Metoprolol Succinate Er), 1 TAB PO DAILY Multiple Vitamin (Tab-A-Radha), 1 TAB PO DAILY, (Reported) Oxybutynin Chloride (Oxybutynin Chloride), 5 MG PO Q8HR Oxycodone W/ Acetaminophen (Percocet 5/325MG), 1 TAB PO QID Pantoprazole Sodium Sesquihydr (Pantoprazole Sodium), 1 TAB PO DAILY, (Reported) Phenazopyridine HCl (Eq Urinary Pain Relief Ma), 99.5 MG PO TID Ranolazine (Ranolazine ER), 500 MG PO BID Spironolactone (Aldactone), 25 MG PO DAILY Scheduled PRN Albuterol Sulfate (Albuterol Sulfate Hfa), 2 PUFF INH Q4HPRN PRN for dyspnea, (Reported) Ipratropium-Albuterol (Ipratropium [place]/Albut), 1 VIAL NEB Q6HPRN PRN for SHORTNESS OF BREATH, (Reported) Polyethylene Glycol 3350 (Miralax), 17 GM PO DAILY PRN for FOR CONSTIPATION, (Reported) Discharge Statement: "Patient was advised to return to the ER or call 911 if any headaches, dizziness, shortness of breath, chest pain, abdominal pain, bleeding, fevers, or worsening of medical condition. Patient was counseled about treatment plan, medications, possible side effects, patientverbalized understanding. All questions were answered to the best of my ability. This discharge took greater then 30 minutes in planning, reviewing documentation, counseling the patient, and discussing with other team members." Date of Service: Dec 04, 2024 Billing Provider: DELFINO VICENTE MD Common Visit Codes: 49184-PST/OBS DISCH DAY >30min DELFINO VICENTE MD Dec 04, 2024 18:55
[2024-12-05] VITALS (13 sets, daily range): BP systolic 100–123; BP diastolic 48–61; PULSE 61–76; RESP 16–19; TEMP 97.2–98.9; O2SAT 95–98
[2024-12-05 00:49] LABS: Urine Protein, UAD TRACE (Negative)
--- NOTE | 2024-12-05 08:29 | DVHPN2 ---
Progress Note - Dictate Date Seen: Dec 05, 2024 Medical Necessity Reason Pt with a Central, PICC or Fol: No vital signs Vital Sign Date Time Temp Pulse Resp B/P (MAP) Pulse Ox O2 Delivery O2 Flow Rate FiO2 12/05/24 06:30 96 Nasal Cannula* 2 28 12/05/24 05:29 70 15 124/46 12/05/24 05:00 98.1 98.1 Total Intake and Output 12/04/24 12/04/24 12/05/24 15:00 23:00 07:00 Intake Total 100 ml 402 ml 440 ml Balance 100 ml 402 ml 440 ml medications Current Medications Medications Dose Ordered Sig/Asha Route Start Time Stop Time Status Last Admin Dose Admin Sodium Chloride 10 ml Q8HR IV 11/30/24 14:00 12/05/24 04:54 10 ML Ondansetron HCl 4 mg Q4HP PRN IV 11/30/24 08:30 12/05/24 04:54 4 MG Docusate Sodium 100 mg BIDPRN PRN PO 11/30/24 08:30 Acetaminophen 650 mg Q6HP PRN PO 11/30/24 08:30 12/01/24 21:33 650 MG Nitroglycerin 0.4 mg Q5MINP PRN SL 11/30/24 08:30 Morphine Sulfate 2 mg Q30M PRN IV 11/30/24 08:30 Ascorbic Acid 500 mg BID PO 11/30/24 10:00 12/04/24 22:35 500 MG Aspirin 81 mg DAILY PO 11/30/24 10:00 UNV Clopidogrel Bisulfate 75 mg DAILY PO 11/30/24 10:00 UNV Pantoprazole Sodium 40 mg DAILY PO 11/30/24 10:00 12/04/24 11:20 40 MG Polyethylene Glycol 17 gm DAILY PRN PO 11/30/24 08:30 Ranolazine 500 mg BID PO 11/30/24 10:00 UNV Cholecalciferol 2,000 unit BID PO 11/30/24 10:00 12/04/24 22:37 2,000 UNIT Fluoxetine HCl 20 mg DAILY PO 11/30/24 10:00 12/04/24 11:19 20 MG Patient Own Medication 1 puff BID IN 11/30/24 10:00 Patient Own Medication 1 tab DAILY PO 11/30/24 10:00 UNV Aspirin 81 mg DAILY PO 11/30/24 10:00 12/04/24 11:19 81 MG Spironolactone 25 mg DAILY PO 11/30/24 10:00 12/04/24 11:19 25 MG Ranolazine 500 mg BID PO 11/30/24 10:00 12/04/24 22:35 500 MG Clopidogrel Bisulfate 75 mg DAILY PO 11/30/24 10:00 12/04/24 11:19 75 MG Metoprolol Succinate 25 mg DAILY PO 11/30/24 10:00 12/04/24 11:20 25 MG Sacubitril/ Valsartan 1 tab BID PO 11/30/24 10:00 12/04/24 22:37 1 TAB Ketorolac Tromethamine 15 mg Q6HPRN PRN IV 11/30/24 12:45 12/05/24 12:44 12/04/24 12:55 15 MG Phenazopyridine HCl 100 mg BID PO 12/01/24 22:00 12/04/24 22:38 100 MG Morphine Sulfate 2 mg Q4HPRN PRN IV 12/02/24 16:00 12/05/24 04:59 2 MG Oxycodone/ Acetaminophen 2 tab Q6HP PRN PO 12/02/24 16:00 12/03/24 06:00 2 TAB Ampicillin Sodium/ Sulbactam Sodium 3 gm/Sodium Chloride 100 ml @ 100 mls/hr Q6H IV 12/02/24 17:00 12/05/24 04:54 100 MLS/HR Amiodarone HCl 100 mg HS PO 12/03/24 22:00 12/04/24 22:36 100 MG Albuterol 2.5 mg Q6HPRN PRN NEB 12/03/24 17:00 12/04/24 11:41 2.5 MG Ipratropium [place] 0.5 mg Q6HPRN PRN NEB 12/03/24 17:00 12/04/24 11:41 0.5 MG laboratory and microbiology Laboratory Tests 12/03/24 05:18 12/02/24 07:13 Test 12/02/24 07:13 Range/Units Serum Glucose 100 74-106 mg/dL Assessment/Plan Patient is a 79 year female was 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 She herself mentions she was alert and lying in bed when this happened. Denies any chest pain prior to. Denies any shortness of breath prior showed. Mentions some lightheadedness prior to the episode. There is questionable nausea feeding prior to the episode. She also remembers stent a 2nd episode happened few minutes later without any warning signs. Cardiology is involved for cardiac aspects of care. She is known to our practice from before. She does have history of systolic heart failure. Serial high sensitive troponin has been negative. Lying comfortably flat in bed, no JVD, pink and wet mucosa, no carotid bruit, no goiter, lungs: Not using accessory muscles of breathing, lungs reveal scattered rhonchi, cardiac: Regular regular, no thrill/gallop, 2+murmur in apex, abdomen: Soft, no hepatomegaly, some suprapubic and upper epigastric tenderness is positive, no rebound tenderness, extremities: No edema, dorsalis pedis is 2+ bilateral. Right femoral/groin area with no hematoma. Past medical history includes hypertension, hyperlipidemia, coronary artery disease, history of CABG (2010), systolic heart failure, ischemic cardiomyopathy, gout, kidney stone, s/p ESWL, frequent UTI, history of CVA, Diverticulosis, COPD, s/p COVID, depression, Anxiety, GERD, history of appendectomy/hysterectomy/tonsillectomy, and history of BiV ICD (Biotronik) implantation. She is chronically wheelchair-bound. She was previously in hospice for heart failure. She is allergic to codeine. She quit smoking years ago. She is DNR. She also has diagnosis of parkinsonism. Cardiac catheterization of August 26, 2024 (performed in [facility]) revealed triple-vessel [place] coronary artery disease. [employer]INE[employer] of obtuse marginal. [employer] ENGINEER of RCA. Lad with 75% lesion and status post drug-eluting stent deployment. It is of note that there is patent SVG to obtuse marginal and also patent SVG to RCA. Cardiac catheterization of September 2020 revealed ejection fraction of 20%, [employer] ENG[employer]ER of SVG to diagonal, patent TAN, patent SVG to OM, patent SVG to PDA and [employer] ENGINEER of RCA. Echocardiogram of September 04, 2024 reported: Dilated left ventricle. LVEF of 10%. Increased EDP. Pacing wire in right-sided chambers. Mild mitral regurgitation. As there was no good tricuspid regurgitation jet, right ventricular systolic pressure could not be estimated Echocardiogram of August 25, 2024 (performed in [facility]) for PE old ejection fraction of 20% Echocardiogram of reported: LV EF of 15-20%, biatrial enlargement, pacing wire in the right-sided chambers. Echocardiogram of November 22, 2023 revealed: Dilated left ventricle, LVEF of 10%, pacing wire and right-sided chambers, mild mitral regurgitation. Echocardiogram of August 28, 2023 revealed: Dilated left ventricle with significantly reduced systolic function. LVEF of 20%. Elevated LVEDP, dilated four chambers. Pacing wire was seen in right-sided chamber. [id number] MR. Echocardiogram of January 03, 2023 revealed ejection fraction of 20 to 25% and mild left ventricular enlargement Echocardiogram of March 25, 2023 (performed in the office) revealed four- chamber dilatation, LVEF of 20 to 25%, mild to moderate MR, mild TR, trace pulmonary valve insufficiency and right ventricular systolic pressure of 35 mmHg Echocardiogram of March 21, 2022 revealed ejection fraction of around 20%, mild MR/TR Echocardiogram of February 17, 2021 revealed dilated LV, LVEF around 25%, severe diffuse hypokinesis, increased LVEDP, dilated left and right atria, mild to moderate MR, mild TR. Echocardiogram of December 30, 2020 reported ejection fraction less than 20% and dilated left atrium. Echocardiogram of August 2020 revealed ejection fraction less than 25%, right atrial enlargement, left atrial enlargement and moderate MR. Creatinine: 1.17 - 1.47 - 1.48 - 1.57 Potassium: 4.3 - 5.2 - 5.1 - 146 M.1 Troponin (high sensitive): 33 - 31 - 28 BNP: 618.59 TSH: 1.32 D-Dimer: 0.33 Chest x-ray reported: IMPRESSION: Mild pulmonary vascular congestion EKG reviewed: Revealed sinus rhythm with paced ventricular rhythm Tele revealed: A sense V paced rhythm Echocardiogram revealed: Left ventricle: Dilated left ventricle was observed. Diffuse hypokinesis of left ventricle with regional variation was seen. The LVEF was around 10%. Filling pressure of left ventricle was increased. Right ventricle was not well-visualized. Systolic function of right ventricle was reduced. Both atria were normal sized. Pacing wire in the right sided chambers was seen. Aortic valve was not well visualized. There was no aortic insufficiency/emesis. There was mild mitral regurgitation. There was trace tricuspid regurgitation. Pulmonary valve was not well visualized. As there was no acute tricuspid regurgitation jet, right ventricular systolic pressure could not be estimated. There was no pericardial effusion. [employer] BiV-ICD interrogation: DDDR/BiV: 70/130; Battery voltage: 2.89 volts; Remaining battery capacity: 57%; Underlying rhythm: Normal sinus rhythm, rate: 64 bpm; Sensing amplitude: A3.4/RV17.3/LV7.5 mV; Pacing threshold: A0.7/RV1.0/LV2.6 volts; Pacing impedance: A560/RV423/LV579 Ohms; Shock impedance: RV82 Ohms; Pacing A/LV/BiV/SNOW REMOVER: 41/1/98/99%; Atrial burden: 0.0%; No recent tachycardia recordings; No therapy delivered by ICD; Normal functioning BiV-ICD, no recent events, no therapy delivered by ICD, no recent AFib Patient is a 79-year-old female presented with post ICD firing. Denies any chest pain prior to the episode. Mentions compliance with medications. Serial high sensitive troponin has been negative and acute coronary syndrome is not considered. Patient had recent ischemic workup/cardiac catheterization and repeat ischemic workup is not indicated at this point. To restart outside medications and will add amiodarone at this point. Patient is on dual antiplatelet therapy for previously implanted stent. To be kept on aspirin/Plavix. Does have baseline history of ischemic/systolic heart failure which at this point is considered compensated. She is DNR. Does complain of dysuria and has history of UTIs (not new). Interrogation of ICD was performed and ruled out any recent episode or treatment. ICD firing (as per patient), Interrogation of ICD ruled out any recent episode and shock Ischemic cardiomyopathy, history of Systolic CHF s/p BiV-ICD implantation Coronary artery disease, status post CABG Status post PCI Diverticular disease Renal calculi Emphysema Kidney stone, history of Coronary artery disease, SP CABG GERD Hypertension Hyperlipidemia Gout Constipation UTI Cardiac suggestion for management: Manage on telemetry Follow-up electrolytes and kidney function tests and correct abnormalities. Keep potassium above 4 and magnesium above 2 Continue Aspirin/Plavix Amiodarone: 100 mg HS Continue Toprol-XL/Entresto/Aldactone/Ranolazine/Atorvastatin Evaluation and management of UTI/dysuria as per primary Cardiac monge, can be followed as outpatient Further evaluation and management depends on the above and clinical course A total of 55 minutes was spent reviewing the patient record, examining the patient, making a diagnostic and therapeutic plan, discussing this plan with medical personnel, following up on diagnostic studies and following the patient for clinical stability excluding any and all procedures. At least 50% of this time was spent in direct, [id number] contact. Thank you for allowing me to participate in this patient's care. Further recommendations will depend on patient's clinical course. Please do not hesitate to contact me if you have any questions or concerns. This medical document was created using electronic medical record system with [employer] computerized dictation system. Although this document has been carefully reviewed, there may still be some phonetic and typographical errors. These areas are purely typographical due to the imperfection of the software programs, and do not reflect any compromise in the patient's medical care. Plan discussed with: Patient, Other (nurse) RODRIGUEZ LEBRON MD Dec 05, 2024 08:29
[2024-12-05] MEDS: MORPHINE SULFATE INJ 2 MG/ml SYRG IV PRN (14:30)
--- NOTE | 2024-12-05 15:49 | DVHPN2 ---
Subjective Patient doing well, no complaints of firing of AICD currently. Reviewed: H&P Changes from previous H/P or p: No Changes General: Per HPI Eyes: No Pain, No Vision change, No Conjunctivae inflammation, No Eyelid inflammation, No Other, No Redness ENT: No Ear pain, No Ear discharge, No Nose pain, No Nose discharge, No Nose congestion, No Mouth pain, No Mouth swelling, No Throat pain, No Throat swelling, No Other Cardiovascular: Chest Pain; No Palpitations, No Orthopnea, No Paroxysmal Noc. Dyspnea, No Edema, No Lt Headedness, No Other Respiratory: No Cough, No Dry, No Shortness of breath, No SOB with excertion, No Wheezing, No Hemoptysis, No Pleuritic Pain, No Sputum, No Other Gastrointestinal: No Nausea, No Vomiting, No Abdominal Pain, No Diarrhea, No Constipation, No Melena, No Hematochezia, No Other Genitourinary: No Dysuria, No Frequency, No Incontinence, No Hematuria, No Retention, No Other Musculoskeletal: No other, No neck pain, No shoulder pain, No arm pain, No back pain, No hand pain, No leg pain, No foot pain Skin: No Rash, No Lesions, No Jaundice, No Bruising, No Other Objective Vitals Vital Signs Date Time Temp Pulse Resp B/P (MAP) Pulse Ox O2 Delivery O2 Flow Rate FiO2 12/05/24 14:30 76 16 119/48 12/05/24 13:00 98.1 98 98.1 12/05/24 09:44 Room Air 0.0 12/05/24 09:44 21 Intake/Output Intake and Output 12/05/24 07:00 Intake Total 942 ml Balance 942 ml Intake Oral 542 ml IV Total 400 ml # Voids 7 Exam GEN: Healthy appearing, well-developed, NAD. HEENT: NC/AT; MMM. CV: RRR, no m/r/g. LUNGS: CTAB, no w/r/c. ABD: Soft, NT/ND, NBS, no masses or organomegaly. EXT: skin Warm, well perfused. no rashes. No clubbing, cyanosis, or edema. NEURO: Ambulating with no limitations. No focal deficits. Medications Current Medications Medications Dose Ordered Sig/Asha Route Start Time Stop Time Status Last Admin Dose Admin Sodium Chloride 10 ml Q8HR IV 11/30/24 14:00 12/05/24 14:31 10 ML Ondansetron HCl 4 mg Q4HP PRN IV 11/30/24 08:30 12/05/24 14:29 4 MG Docusate Sodium 100 mg BIDPRN PRN PO 11/30/24 08:30 Acetaminophen 650 mg Q6HP PRN PO 11/30/24 08:30 12/01/24 21:33 650 MG Nitroglycerin 0.4 mg Q5MINP PRN SL 11/30/24 08:30 Morphine Sulfate 2 mg Q30M PRN IV 11/30/24 08:30 12/05/24 14:30 2 MG Ascorbic Acid 500 mg BID PO 11/30/24 10:00 12/05/24 09:42 500 MG Aspirin 81 mg DAILY PO 11/30/24 10:00 UNV Clopidogrel Bisulfate 75 mg DAILY PO 11/30/24 10:00 UNV Pantoprazole Sodium 40 mg DAILY PO 11/30/24 10:00 12/05/24 09:42 40 MG Polyethylene Glycol 17 gm DAILY PRN PO 11/30/24 08:30 Ranolazine 500 mg BID PO 11/30/24 10:00 UNV Cholecalciferol 2,000 unit BID PO 11/30/24 10:00 12/05/24 09:43 2,000 UNIT Fluoxetine HCl 20 mg DAILY PO 11/30/24 10:00 12/05/24 09:41 20 MG Patient Own Medication 1 puff BID IN 11/30/24 10:00 Patient Own Medication 1 tab DAILY PO 11/30/24 10:00 UNV Aspirin 81 mg DAILY PO 11/30/24 10:00 12/05/24 09:42 81 MG Spironolactone 25 mg DAILY PO 11/30/24 10:00 12/05/24 09:42 25 MG Ranolazine 500 mg BID PO 11/30/24 10:00 12/05/24 09:43 500 MG Clopidogrel Bisulfate 75 mg DAILY PO 11/30/24 10:00 12/05/24 09:43 75 MG Metoprolol Succinate 25 mg DAILY PO 11/30/24 10:00 12/05/24 09:42 25 MG Sacubitril/ Valsartan 1 tab BID PO 11/30/24 10:00 12/05/24 09:43 1 TAB Phenazopyridine HCl 100 mg BID PO 12/01/24 22:00 12/05/24 09:43 100 MG Morphine Sulfate 2 mg Q4HPRN PRN IV 12/02/24 16:00 12/05/24 09:44 2 MG Oxycodone/ Acetaminophen 2 tab Q6HP PRN PO 12/02/24 16:00 12/03/24 06:00 2 TAB Ampicillin Sodium/ Sulbactam Sodium 3 gm/Sodium Chloride 100 ml @ 100 mls/hr Q6H IV 12/02/24 17:00 12/05/24 10:49 100 MLS/HR Amiodarone HCl 100 mg HS PO 12/03/24 22:00 12/04/24 22:36 100 MG Albuterol 2.5 mg Q6HPRN PRN NEB 12/03/24 17:00 12/04/24 11:41 2.5 MG Ipratropium [place] 0.5 mg Q6HPRN PRN NEB 12/03/24 17:00 12/04/24 11:41 0.5 MG Laboratory Results Laboratory Tests 12/02/24 07:13 12/03/24 05:18 Urinalysis Test 12/02/24 05:51 12/04/24 23:59 Urine WBC Clumps Present /hpf (None Seen) Urine Color Dark-orange (Yellow) Urine Clarity Clear (Clear) Urine pH 5.5 (5.0-9.0) Urine Specific [place] 1.030 (1.001-1.035) Urine Protein Trace (Negative) H Urine Ketones Negative (Negative) Urine Blood Negative /uL (Negative) Urine Nitrite 1+ (Negative) H Urine Bilirubin 1+ (Negative) H Urine Urobilinogen 2 mg/dL (Negative) H Urine Leukocyte Esterase Negative /uL (Negative) Urine RBC 1 /hpf (0 - 4) Urine Microscopic WBC 2 /HPF (0-5) Urine Squamous Epithelial Cells Few /hpf (<5) Urine Bacteria None seen /hpf (None Seen) Urine Hyaline Casts Few /lpf (0 - 2) Urine Mucus Few (None Seen) Urine Glucose Normal mg/dL (Normal) Microbiology Microbiology Date/Time Source Procedure Growth Status 12/02/24 05:51 Urine - Midstream Clean Catch Urine Culture - Final Complete Labs and/or images reviewed: Labs reviewed by me, Image(s) reviewed by me Assessment/Plan Assessment/Plan Note for 12/03/202412/01 - patient here for AICD firing discharge x2. Hospice revocation status. Patient is full code status right now. Cardiology following and waiting for interrogation of AICD Bi[employer]. We will continue to follows alongside with cardiology. No evidence of UTI,no urine culture. 12/02 UA was taken and showing recurrent UTI similar to her prior multiple visits. We will start ceftriaxone. Bi[employer]ronik rep to come today to do device interrogation. Nurses following up. 12/03 urine culture has not resulted. Device interrogation is unconcerning. Patient wants to go back to hospice we will touch base with social. 12/04 patient has been discharge. See discharge summary for complete details 12/05 patient pending transfer back to primary facility. Social workers consulted. Patient complaining of right hip pain, we will get portable x-ray to evaluate, likely osteoarthritis chronic. Continue pain control PRN. AICD discharge, LENORA on CKD, VMN likely, Acute complicated cystitis, multiple recurrences. hyperkalemia CAD, CHF, Hypertension, Hyperlipidemia, GERD, PLAN: per cards: Manage on telemetry. Continue Aspirin/Plavix. Awaiting interrogation of ICD (Biotronik). Amiodarone for now. Continue Toprol- XL/Entresto/Aldactone/Ranolazine/Atorvastatin. -concern UTI unasyn. in hospice for recurrent UTI. - continue other home medications. Diet regular DVT prophylaxis-Lovenox GI prophylaxis-tolerating p.o. Tele Full code Note for 12/03/2024 Plan discussed with: Patient My Orders Orders - DELFINO VICENTE MD Procedure Category Date Status Time Discharge DISCHARGE 12/04/24 Transmitted 18:45 * [employer] CONS 12/04/24 Transmitted Consult Date of Service: Dec 05, 2024 Billing Provider: DELFINO VICENTE MD Common Visit Codes: [id number] INP/OBS CARE(MOD) DELFINO VICENTE MD Dec 05, 2024 15:49
--- NOTE | 2024-12-05 19:59 | DVH ---
CLINICAL INDICATION: Right hip pain TECHNIQUE: 1 radiographic views of the right hip were obtained. Comparison: None FINDINGS/IMPRESSION: Normal bony alignment no fracture or dislocation. Mild osteoarthritic changes.
[2024-12-06] VITALS (11 sets, daily range): BP systolic 117–141; BP diastolic 62–96; PULSE 62–97; RESP 16–18; TEMP 96.9–98.6; O2SAT 94–98
--- NOTE | 2024-12-06 14:56 | DVHPN2 ---
Progress Note - Dictate Date Seen: Dec 06, 2024 Medical Necessity Reason Pt with a Central, PICC or Fol: No vital signs Vital Sign Date Time Temp Pulse Resp B/P (MAP) Pulse Ox O2 Delivery O2 Flow Rate FiO2 12/06/24 14:16 66 18 118/69 12/06/24 13:00 98.1 98 98.1 12/06/24 08:00 Nasal Cannula* 2 28 Total Intake and Output 12/05/24 12/05/24 12/06/24 14:59 22:59 06:59 Intake Total 882 ml 580 ml Balance 882 ml 580 ml medications Current Medications Medications Dose Ordered Sig/Asha Route Start Time Stop Time Status Last Admin Dose Admin Sodium Chloride 10 ml Q8HR IV 11/30/24 14:00 12/06/24 14:06 10 ML Ondansetron HCl 4 mg Q4HP PRN IV 11/30/24 08:30 12/06/24 14:15 4 MG Docusate Sodium 100 mg BIDPRN PRN PO 11/30/24 08:30 Acetaminophen 650 mg Q6HP PRN PO 11/30/24 08:30 12/01/24 21:33 650 MG Nitroglycerin 0.4 mg Q5MINP PRN SL 11/30/24 08:30 Morphine Sulfate 2 mg Q30M PRN IV 11/30/24 08:30 12/06/24 09:11 2 MG Ascorbic Acid 500 mg BID PO 11/30/24 10:00 12/06/24 09:02 500 MG Aspirin 81 mg DAILY PO 11/30/24 10:00 UNV Clopidogrel Bisulfate 75 mg DAILY PO 11/30/24 10:00 UNV Pantoprazole Sodium 40 mg DAILY PO 11/30/24 10:00 12/06/24 09:03 40 MG Polyethylene Glycol 17 gm DAILY PRN PO 11/30/24 08:30 Ranolazine 500 mg BID PO 11/30/24 10:00 UNV Cholecalciferol 2,000 unit BID PO 11/30/24 10:00 12/06/24 09:04 2,000 UNIT Fluoxetine HCl 20 mg DAILY PO 11/30/24 10:00 12/06/24 09:03 20 MG Patient Own Medication 1 puff BID IN 11/30/24 10:00 Patient Own Medication 1 tab DAILY PO 11/30/24 10:00 UNV Aspirin 81 mg DAILY PO 11/30/24 10:00 12/06/24 09:02 81 MG Spironolactone 25 mg DAILY PO 11/30/24 10:00 12/06/24 11:44 25 MG Ranolazine 500 mg BID PO 11/30/24 10:00 12/06/24 11:40 500 MG Clopidogrel Bisulfate 75 mg DAILY PO 11/30/24 10:00 12/06/24 09:03 75 MG Metoprolol Succinate 25 mg DAILY PO 11/30/24 10:00 12/06/24 09:04 25 MG Sacubitril/ Valsartan 1 tab BID PO 11/30/24 10:00 12/06/24 11:40 1 TAB Phenazopyridine HCl 100 mg BID PO 12/01/24 22:00 12/06/24 11:40 100 MG Morphine Sulfate 2 mg Q4HPRN PRN IV 12/02/24 16:00 12/06/24 14:16 2 MG Oxycodone/ Acetaminophen 2 tab Q6HP PRN PO 12/02/24 16:00 12/06/24 04:10 2 TAB Ampicillin Sodium/ Sulbactam Sodium 3 gm/Sodium Chloride 100 ml @ 100 mls/hr Q6H IV 12/02/24 17:00 12/06/24 11:40 100 MLS/HR Amiodarone HCl 100 mg HS PO 12/03/24 22:00 12/05/24 20:09 100 MG Albuterol 2.5 mg Q6HPRN PRN NEB 12/03/24 17:00 12/05/24 22:29 2.5 MG Ipratropium [place] 0.5 mg Q6HPRN PRN NEB 12/03/24 17:00 12/05/24 22:29 0.5 MG laboratory and microbiology Laboratory Tests 12/03/24 05:18 12/02/24 07:13 Test 12/02/24 07:13 Range/Units Serum Glucose 100 74-106 mg/dL Assessment/Plan Patient is a 79 year female was 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 She herself mentions she was alert and lying in bed when this happened. Denies any chest pain prior to. Denies any shortness of breath prior showed. Mentions some lightheadedness prior to the episode. There is questionable nausea feeding prior to the episode. She also remembers stent a 2nd episode happened few minutes later without any warning signs. Cardiology is involved for cardiac aspects of care. She is known to our practice from before. She does have history of systolic heart failure. Serial high sensitive troponin has been negative. Lying comfortably flat in bed, no JVD, pink and wet mucosa, no carotid bruit, no goiter, lungs: Not using accessory muscles of breathing, lungs reveal scattered rhonchi, cardiac: Regular regular, no thrill/gallop, 2+murmur in apex, abdomen: Soft, no hepatomegaly, some suprapubic and upper epigastric tenderness is positive, no rebound tenderness, extremities: No edema, dorsalis pedis is 2+ bilateral. Right femoral/groin area with no hematoma. Past medical history includes hypertension, hyperlipidemia, coronary artery disease, history of CABG (2010), systolic heart failure, ischemic cardiomyopathy, gout, kidney stone, s/p ESWL, frequent UTI, history of CVA, Diverticulosis, COPD, s/p COVID, depression, Anxiety, GERD, history of appendectomy/hysterectomy/tonsillectomy, and history of BiV ICD (Biotronik) implantation. She is chronically wheelchair-bound. She was previously in hospice for heart failure. She is allergic to codeine. She quit smoking years ago. She is DNR. She also has diagnosis of parkinsonism. Cardiac catheterization of August 26, 2024 (performed in [facility]) revealed triple-vessel [place] coronary artery disease. REGIONAL LOSS PREVENTION MANAGER of obtuse marginal. REGIONAL LOSS PREVENTION MANAGER of RCA. Lad with 75% lesion and status post drug-eluting stent deployment. It is of note that there is patent SVG to obtuse marginal and also patent SVG to RCA. Cardiac catheterization of September 2020 revealed ejection fraction of 20%, REGIONAL LOSS PREVENTION MANAGER of SVG to diagonal, patent TAN, patent SVG to OM, patent SVG to PDA and REGIONAL LOSS PREVENTION MANAGER of RCA. Echocardiogram of September 04, 2024 reported: Dilated left ventricle. LVEF of 10%. Increased EDP. Pacing wire in right-sided chambers. Mild mitral regurgitation. As there was no good tricuspid regurgitation jet, right ventricular systolic pressure could not be estimated Echocardiogram of August 25, 2024 (performed in [facility]) for PE old ejection fraction of 20% Echocardiogram of reported: LV EF of 15-20%, biatrial enlargement, pacing wire in the right-sided chambers. Echocardiogram of November 22, 2023 revealed: Dilated left ventricle, LVEF of 10%, pacing wire and right-sided chambers, mild mitral regurgitation. Echocardiogram of August 28, 2023 revealed: Dilated left ventricle with significantly reduced systolic function. LVEF of 20%. Elevated LVEDP, dilated four chambers. Pacing wire was seen in right-sided chamber. [id number] MR. Echocardiogram of January 03, 2023 revealed ejection fraction of 20 to 25% and mild left ventricular enlargement Echocardiogram of March 25, 2023 (performed in the office) revealed four- chamber dilatation, LVEF of 20 to 25%, mild to moderate MR, mild TR, trace pulmonary valve insufficiency and right ventricular systolic pressure of 35 mmHg Echocardiogram of March 21, 2022 revealed ejection fraction of around 20%, mild MR/TR Echocardiogram of February 17, 2021 revealed dilated LV, LVEF around 25%, severe diffuse hypokinesis, increased LVEDP, dilated left and right atria, mild to moderate MR, mild TR. Echocardiogram of December 30, 2020 reported ejection fraction less than 20% and dilated left atrium. Echocardiogram of August 2020 revealed ejection fraction less than 25%, right atrial enlargement, left atrial enlargement and moderate MR. Creatinine: 1.17 - 1.47 - 1.48 - 1.57 Potassium: 4.3 - 5.2 - 5.1 - 146 M.1 Troponin (high sensitive): 33 - 31 - 28 BNP: 618.59 TSH: 1.32 D-Dimer: 0.33 Chest x-ray reported: IMPRESSION: Mild pulmonary vascular congestion Right Hip xry revealed: FINDINGS/IMPRESSION: Normal bony alignment no fracture or dislocation. Mild osteoarthritic changes. EKG reviewed: Revealed sinus rhythm with paced ventricular rhythm Tele revealed: A sense V paced rhythm Echocardiogram revealed: Left ventricle: Dilated left ventricle was observed. Diffuse hypokinesis of left ventricle with regional variation was seen. The LVEF was around 10%. Filling pressure of left ventricle was increased. Right ventricle was not well-visualized. Systolic function of right ventricle was reduced. Both atria were normal sized. Pacing wire in the right sided chambers was seen. Aortic valve was not well visualized. There was no aortic insufficiency/emesis. There was mild mitral regurgitation. There was trace tricuspid regurgitation. Pulmonary valve was not well visualized. As there was no acute tricuspid regurgitation jet, right ventricular systolic pressure could not be estimated. There was no pericardial effusion. [employer] BiV-ICD interrogation: DDDR/BiV: 70/130; Battery voltage: 2.89 volts; Remaining battery capacity: 57%; Underlying rhythm: Normal sinus rhythm, rate: 64 bpm; Sensing amplitude: A3.4/RV17.3/LV7.5 mV; Pacing threshold: A0.7/RV1.0/LV2.6 volts; Pacing impedance: A560/RV423/LV579 Ohms; Shock impedance: RV82 Ohms; Pacing A/LV/BiV/CYBER SOFTWARE ENGINEER: 41/1/98/99%; Atrial burden: 0.0%; No recent tachycardia recordings; No therapy delivered by ICD; Normal functioning BiV-ICD, no recent events, no therapy delivered by ICD, no recent AFib Patient is a 79-year-old female presented with post ICD firing. Denies any chest pain prior to the episode. Mentions compliance with medications. Serial high sensitive troponin has been negative and acute coronary syndrome is not considered. Patient had recent ischemic workup/cardiac catheterization and repeat ischemic workup is not indicated at this point. To restart outside medications and will add amiodarone at this point. Patient is on dual antiplatelet therapy for previously implanted stent. To be kept on aspirin/Plavix. Does have baseline history of ischemic/systolic heart failure which at this point is considered compensated. She is DNR. Does complain of dysuria and has history of UTIs (not new). Interrogation of ICD was performed and ruled out any recent episode or treatment. ICD firing (as per patient), Interrogation of ICD ruled out any recent episode and shock Ischemic cardiomyopathy, history of Systolic CHF s/p BiV-ICD implantation Coronary artery disease, status post CABG Status post PCI Diverticular disease Renal calculi Emphysema Kidney stone, history of Coronary artery disease, SP CABG GERD Hypertension Hyperlipidemia Gout Constipation UTI Cardiac suggestion for management: Manage on telemetry Follow-up electrolytes and kidney function tests and correct abnormalities. Keep potassium above 4 and magnesium above 2 Continue Aspirin/Plavix Amiodarone: 100 mg HS Continue Toprol-XL/Entresto/Aldactone/Ranolazine/Atorvastatin Evaluation and management of UTI/dysuria as per primary Cardiac monge, can be followed as outpatient Further evaluation and management depends on the above and clinical course A total of 55 minutes was spent reviewing the patient record, examining the patient, making a diagnostic and therapeutic plan, discussing this plan with medical personnel, following up on diagnostic studies and following the patient for clinical stability excluding any and all procedures. At least 50% of this time was spent in direct, [id number] contact. Thank you for allowing me to participate in this patient's care. Further recommendations will depend on patient's clinical course. Please do not hesitate to contact me if you have any questions or concerns. This medical document was created using electronic medical record system with [employer] computerized dictation system. Although this document has been carefully reviewed, there may still be some phonetic and typographical errors. These areas are purely typographical due to the imperfection of the software programs, and do not reflect any compromise in the patient's medical care. Dietary Evaluation Review Comments: continue current POC Expected Outcomes/Goals: To meet 75% estimated needs fu 3-5 days Plan discussed with: Patient, Other (nurse) RODRIGUEZ LEBRON MD Dec 06, 2024 14:56
--- NOTE | 2024-12-06 17:40 | DVHPN2 ---
Subjective Patient doing well, no complaints of firing of AICD currently. Reviewed: H&P Changes from previous H/P or p: No Changes General: Per HPI Eyes: No Pain, No Vision change, No Conjunctivae inflammation, No Eyelid inflammation, No Other, No Redness ENT: No Ear pain, No Ear discharge, No Nose pain, No Nose discharge, No Nose congestion, No Mouth pain, No Mouth swelling, No Throat pain, No Throat swelling, No Other Cardiovascular: Chest Pain; No Palpitations, No Orthopnea, No Paroxysmal Noc. Dyspnea, No Edema, No Lt Headedness, No Other Respiratory: No Cough, No Dry, No Shortness of breath, No SOB with excertion, No Wheezing, No Hemoptysis, No Pleuritic Pain, No Sputum, No Other Gastrointestinal: No Nausea, No Vomiting, No Abdominal Pain, No Diarrhea, No Constipation, No Melena, No Hematochezia, No Other Genitourinary: No Dysuria, No Frequency, No Incontinence, No Hematuria, No Retention, No Other Musculoskeletal: No other, No neck pain, No shoulder pain, No arm pain, No back pain, No hand pain, No leg pain, No foot pain Skin: No Rash, No Lesions, No Jaundice, No Bruising, No Other Objective Vitals Vital Signs Date Time Temp Pulse Resp B/P (MAP) Pulse Ox O2 Delivery O2 Flow Rate FiO2 12/06/24 16:59 97.6 97 16 117/64 (81) 97 97.6 12/06/24 08:00 Nasal Cannula* 2 28 Intake/Output Intake and Output 12/06/24 07:00 Intake Total 1462 ml Balance 1462 ml Intake Oral 1362 ml IV Total 100 ml # Voids 8 # Bowel Movements 1 Exam GEN: Healthy appearing, well-developed, NAD. HEENT: NC/AT; MMM. CV: RRR, no m/r/g. LUNGS: CTAB, no w/r/c. ABD: Soft, NT/ND, NBS, no masses or organomegaly. EXT: skin Warm, well perfused. no rashes. No clubbing, cyanosis, or edema. NEURO: Ambulating with no limitations. No focal deficits. Medications Current Medications Medications Dose Ordered Sig/Asha Route Start Time Stop Time Status Last Admin Dose Admin Sodium Chloride 10 ml Q8HR IV 11/30/24 14:00 12/06/24 14:06 10 ML Ondansetron HCl 4 mg Q4HP PRN IV 11/30/24 08:30 12/06/24 14:15 4 MG Docusate Sodium 100 mg BIDPRN PRN PO 11/30/24 08:30 Acetaminophen 650 mg Q6HP PRN PO 11/30/24 08:30 12/01/24 21:33 650 MG Nitroglycerin 0.4 mg Q5MINP PRN SL 11/30/24 08:30 Morphine Sulfate 2 mg Q30M PRN IV 11/30/24 08:30 12/06/24 09:11 2 MG Ascorbic Acid 500 mg BID PO 11/30/24 10:00 12/06/24 09:02 500 MG Aspirin 81 mg DAILY PO 11/30/24 10:00 UNV Clopidogrel Bisulfate 75 mg DAILY PO 11/30/24 10:00 UNV Pantoprazole Sodium 40 mg DAILY PO 11/30/24 10:00 12/06/24 09:03 40 MG Polyethylene Glycol 17 gm DAILY PRN PO 11/30/24 08:30 Ranolazine 500 mg BID PO 11/30/24 10:00 UNV Cholecalciferol 2,000 unit BID PO 11/30/24 10:00 12/06/24 09:04 2,000 UNIT Fluoxetine HCl 20 mg DAILY PO 11/30/24 10:00 12/06/24 09:03 20 MG Patient Own Medication 1 puff BID IN 11/30/24 10:00 Patient Own Medication 1 tab DAILY PO 11/30/24 10:00 UNV Aspirin 81 mg DAILY PO 11/30/24 10:00 12/06/24 09:02 81 MG Spironolactone 25 mg DAILY PO 11/30/24 10:00 12/06/24 11:44 25 MG Ranolazine 500 mg BID PO 11/30/24 10:00 12/06/24 11:40 500 MG Clopidogrel Bisulfate 75 mg DAILY PO 11/30/24 10:00 12/06/24 09:03 75 MG Metoprolol Succinate 25 mg DAILY PO 11/30/24 10:00 12/06/24 09:04 25 MG Sacubitril/ Valsartan 1 tab BID PO 11/30/24 10:00 12/06/24 11:40 1 TAB Phenazopyridine HCl 100 mg BID PO 12/01/24 22:00 12/06/24 11:40 100 MG Morphine Sulfate 2 mg Q4HPRN PRN IV 12/02/24 16:00 12/06/24 14:16 2 MG Oxycodone/ Acetaminophen 2 tab Q6HP PRN PO 12/02/24 16:00 12/06/24 04:10 2 TAB Ampicillin Sodium/ Sulbactam Sodium 3 gm/Sodium Chloride 100 ml @ 100 mls/hr Q6H IV 12/02/24 17:00 12/06/24 11:40 100 MLS/HR Amiodarone HCl 100 mg HS PO 12/03/24 22:00 12/05/24 20:09 100 MG Albuterol 2.5 mg Q6HPRN PRN NEB 12/03/24 17:00 12/05/24 22:29 2.5 MG Ipratropium [place] 0.5 mg Q6HPRN PRN NEB 12/03/24 17:00 12/05/24 22:29 0.5 MG Laboratory Results Laboratory Tests 12/02/24 07:13 12/03/24 05:18 Urinalysis Test 12/02/24 05:51 12/04/24 23:59 Urine WBC Clumps Present /hpf (None Seen) Urine Color Dark-orange (Yellow) Urine Clarity Clear (Clear) Urine pH 5.5 (5.0-9.0) Urine Specific [place] 1.030 (1.001-1.035) Urine Protein Trace (Negative) H Urine Ketones Negative (Negative) Urine Blood Negative /uL (Negative) Urine Nitrite 1+ (Negative) H Urine Bilirubin 1+ (Negative) H Urine Urobilinogen 2 mg/dL (Negative) H Urine Leukocyte Esterase Negative /uL (Negative) Urine RBC 1 /hpf (0 - 4) Urine Microscopic WBC 2 /HPF (0-5) Urine Squamous Epithelial Cells Few /hpf (<5) Urine Bacteria None seen /hpf (None Seen) Urine Hyaline Casts Few /lpf (0 - 2) Urine Mucus Few (None Seen) Urine Glucose Normal mg/dL (Normal) Microbiology Microbiology Date/Time Source Procedure Growth Status 12/02/24 05:51 Urine - Midstream Clean Catch Urine Culture - Final Complete Labs and/or images reviewed: Labs reviewed by me, Image(s) reviewed by me Assessment/Plan Assessment/Plan Note for 12/03/202412/01 - patient here for AICD firing discharge x2. Hospice revocation status. Patient is full code status right now. Cardiology following and waiting for interrogation of AICD Biotronik. We will continue to follows alongside with cardiology. No evidence of UTI,no urine culture. 12/02 UA was taken and showing recurrent UTI similar to her prior multiple visits. We will start ceftriaxone. Biotronik rep to come today to do device interrogation. Nurses following up. 12/03 urine culture has not resulted. Device interrogation is unconcerning. Patient wants to go back to hospice we will touch base with social. 12/04 patient has been discharge. See discharge summary for complete details 12/05 patient pending transfer back to primary facility. Social workers consulted. Patient complaining of right hip pain, we will get portable x-ray to evaluate, likely osteoarthritis chronic. Continue pain control PRN. 12/06 Patient has been stable for discharge. We evaluated right hip pain with x- ray which shows chronic osteoarthritis. Can give patient baclofen for pain relief as she goes back home to her living facility foremost with hospice. RN and social workers [facility] notified that patient has been stable for discharge. AICD discharge, LENORA on CKD, VMN likely, Acute complicated cystitis, multiple recurrences. hyperkalemia CAD, CHF, Hypertension, Hyperlipidemia, GERD, PLAN: per cards: Manage on telemetry. Continue Aspirin/Plavix. Awaiting interrogation of ICD (Biotronik). Amiodarone for now. Continue Toprol- XL/Entresto/Aldactone/Ranolazine/Atorvastatin. -concern UTI unasyn. in hospice for recurrent UTI. - continue other home medications. Diet regular DVT prophylaxis-Lovenox GI prophylaxis-tolerating p.o. Tele Full code Note for 12/03/2024 Plan discussed with: Patient Date of Service: Dec 06, 2024 Billing Provider: DELFINO VICENTE MD Common Visit Codes: [id number] INP/OBS CARE(MOD) DELFINO VICENTE MD Dec 06, 2024 17:40
[2024-12-06] MEDS ORDERED: BACLOFEN 10 MG TAB PO ONE (17:45)
[2024-12-07] VITALS (9 sets, daily range): BP systolic 110–129; BP diastolic 59–79; PULSE 62–70; RESP 14–18; TEMP 97.9–98.6; O2SAT 94–98
--- NOTE | 2024-12-07 07:30 | DVHPN2 ---
Progress Note - Dictate Date Seen: Dec 07, 2024 Medical Necessity Reason Pt with a Central, PICC or Fol: No vital signs Vital Sign Date Time Temp Pulse Resp B/P (MAP) Pulse Ox O2 Delivery O2 Flow Rate FiO2 12/07/24 05:00 98.0 69 15 120/63 (82) 95 98.0 12/06/24 20:52 Nasal Cannula* 2 28 Total Intake and Output 12/06/24 12/06/24 12/07/24 15:00 23:00 07:00 Intake Total 1200 ml 845 ml Output Total 600 ml Balance 1200 ml 245 ml medications Current Medications Medications Dose Ordered Sig/Asha Route Start Time Stop Time Status Last Admin Dose Admin Sodium Chloride 10 ml Q8HR IV 11/30/24 14:00 12/07/24 06:17 10 ML Ondansetron HCl 4 mg Q4HP PRN IV 11/30/24 08:30 12/07/24 04:17 4 MG Docusate Sodium 100 mg BIDPRN PRN PO 11/30/24 08:30 Acetaminophen 650 mg Q6HP PRN PO 11/30/24 08:30 12/01/24 21:33 650 MG Nitroglycerin 0.4 mg Q5MINP PRN SL 11/30/24 08:30 Morphine Sulfate 2 mg Q30M PRN IV 11/30/24 08:30 12/06/24 09:11 2 MG Ascorbic Acid 500 mg BID PO 11/30/24 10:00 12/06/24 19:57 500 MG Aspirin 81 mg DAILY PO 11/30/24 10:00 UNV Clopidogrel Bisulfate 75 mg DAILY PO 11/30/24 10:00 UNV Pantoprazole Sodium 40 mg DAILY PO 11/30/24 10:00 12/06/24 09:03 40 MG Polyethylene Glycol 17 gm DAILY PRN PO 11/30/24 08:30 Ranolazine 500 mg BID PO 11/30/24 10:00 UNV Cholecalciferol 2,000 unit BID PO 11/30/24 10:00 12/06/24 19:57 2,000 UNIT Fluoxetine HCl 20 mg DAILY PO 11/30/24 10:00 12/06/24 09:03 20 MG Patient Own Medication 1 puff BID IN 11/30/24 10:00 Patient Own Medication 1 tab DAILY PO 11/30/24 10:00 UNV Aspirin 81 mg DAILY PO 11/30/24 10:00 12/06/24 09:02 81 MG Spironolactone 25 mg DAILY PO 11/30/24 10:00 12/06/24 11:44 25 MG Ranolazine 500 mg BID PO 11/30/24 10:00 12/06/24 19:56 500 MG Clopidogrel Bisulfate 75 mg DAILY PO 11/30/24 10:00 12/06/24 09:03 75 MG Metoprolol Succinate 25 mg DAILY PO 11/30/24 10:00 12/06/24 09:04 25 MG Sacubitril/ Valsartan 1 tab BID PO 11/30/24 10:00 12/06/24 19:57 1 TAB Phenazopyridine HCl 100 mg BID PO 12/01/24 22:00 12/06/24 19:57 100 MG Morphine Sulfate 2 mg Q4HPRN PRN IV 12/02/24 16:00 12/07/24 04:18 2 MG Oxycodone/ Acetaminophen 2 tab Q6HP PRN PO 12/02/24 16:00 12/06/24 04:10 2 TAB Ampicillin Sodium/ Sulbactam Sodium 3 gm/Sodium Chloride 100 ml @ 100 mls/hr Q6H IV 12/02/24 17:00 12/07/24 06:13 100 MLS/HR Amiodarone HCl 100 mg HS PO 12/03/24 22:00 12/06/24 19:56 100 MG Albuterol 2.5 mg Q6HPRN PRN NEB 12/03/24 17:00 12/05/24 22:29 2.5 MG Ipratropium [place] 0.5 mg Q6HPRN PRN NEB 12/03/24 17:00 12/05/24 22:29 0.5 MG laboratory and microbiology Laboratory Tests 12/03/24 05:18 12/02/24 07:13 Test 12/02/24 07:13 Range/Units Serum Glucose 100 74-106 mg/dL Assessment/Plan Patient is a 79 year female was 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 She herself mentions she was alert and lying in bed when this happened. Denies any chest pain prior to. Denies any shortness of breath prior showed. Mentions some lightheadedness prior to the episode. There is questionable nausea feeding prior to the episode. She also remembers stent a 2nd episode happened few minutes later without any warning signs. Cardiology is involved for cardiac aspects of care. She is known to our practice from before. She does have history of systolic heart failure. Serial high sensitive troponin has been negative. Lying comfortably flat in bed, no JVD, pink and wet mucosa, no carotid bruit, no goiter, lungs: Not using accessory muscles of breathing, lungs reveal scattered rhonchi, cardiac: Regular regular, no thrill/gallop, 2+murmur in apex, abdomen: Soft, no hepatomegaly, some suprapubic and upper epigastric tenderness is positive, no rebound tenderness, extremities: No edema, dorsalis pedis is 2+ bilateral. Right femoral/groin area with no hematoma. Past medical history includes hypertension, hyperlipidemia, coronary artery disease, history of CABG (2010), systolic heart failure, ischemic cardiomyopathy, gout, kidney stone, s/p ESWL, frequent UTI, history of CVA, Diverticulosis, COPD, s/p COVID, depression, Anxiety, GERD, history of appendectomy/hysterectomy/tonsillectomy, and history of BiV ICD (Biotronik) implantation. She is chronically wheelchair-bound. She was previously in hospice for heart failure. She is allergic to codeine. She quit smoking years ago. She is DNR. She also has diagnosis of parkinsonism. Cardiac catheterization of August 26, 2024 (performed in [facility]) revealed triple-vessel la posta coronary artery disease. HOOK UP DRIVER of obtuse marginal. HOOK UP DRIVER of RCA. Lad with 75% lesion and status post drug-eluting stent deployment. It is of note that there is patent SVG to obtuse marginal and also patent SVG to RCA. Cardiac catheterization of September 2020 revealed ejection fraction of 20%, HOOK UP DRIVER of SVG to diagonal, patent TAN, patent SVG to OM, patent SVG to PDA and HOOK UP DRIVER of RCA. Echocardiogram of September 04, 2024 reported: Dilated left ventricle. LVEF of 10%. Increased EDP. Pacing wire in right-sided chambers. Mild mitral regurgitation. As there was no good tricuspid regurgitation jet, right ventricular systolic pressure could not be estimated Echocardiogram of August 25, 2024 (performed in [facility]) for PE old ejection fraction of 20% Echocardiogram of reported: LV EF of 15-20%, biatrial enlargement, pacing wire in the right-sided chambers. Echocardiogram of November 22, 2023 revealed: Dilated left ventricle, LVEF of 10%, pacing wire and right-sided chambers, mild mitral regurgitation. Echocardiogram of August 28, 2023 revealed: Dilated left ventricle with significantly reduced systolic function. LVEF of 20%. Elevated LVEDP, dilated four chambers. Pacing wire was seen in right-sided chamber. [id number] MR. Echocardiogram of January 03, 2023 revealed ejection fraction of 20 to 25% and mild left ventricular enlargement Echocardiogram of March 25, 2023 (performed in the office) revealed four- chamber dilatation, LVEF of 20 to 25%, mild to moderate MR, mild TR, trace pulmonary valve insufficiency and right ventricular systolic pressure of 35 mmHg Echocardiogram of March 21, 2022 revealed ejection fraction of around 20%, mild MR/TR Echocardiogram of February 17, 2021 revealed dilated LV, LVEF around 25%, severe diffuse hypokinesis, increased LVEDP, dilated left and right atria, mild to moderate MR, mild TR. Echocardiogram of December 30, 2020 reported ejection fraction less than 20% and dilated left atrium. Echocardiogram of August 2020 revealed ejection fraction less than 25%, right atrial enlargement, left atrial enlargement and moderate MR. Creatinine: 1.17 - 1.47 - 1.48 - 1.57 Potassium: 4.3 - 5.2 - 5.1 - 146 M.1 Troponin (high sensitive): 33 - 31 - 28 BNP: 618.59 TSH: 1.32 D-Dimer: 0.33 Chest x-ray reported: IMPRESSION: Mild pulmonary vascular congestion Right Hip xry revealed: FINDINGS/IMPRESSION: Normal bony alignment no fracture or dislocation. Mild osteoarthritic changes. EKG reviewed: Revealed sinus rhythm with paced ventricular rhythm Tele revealed: A sense V paced rhythm Echocardiogram revealed: Left ventricle: Dilated left ventricle was observed. Diffuse hypokinesis of left ventricle with regional variation was seen. The LVEF was around 10%. Filling pressure of left ventricle was increased. Right ventricle was not well-visualized. Systolic function of right ventricle was reduced. Both atria were normal sized. Pacing wire in the right sided chambers was seen. Aortic valve was not well visualized. There was no aortic insufficiency/emesis. There was mild mitral regurgitation. There was trace tricuspid regurgitation. Pulmonary valve was not well visualized. As there was no acute tricuspid regurgitation jet, right ventricular systolic pressure could not be estimated. There was no pericardial effusion. [employer] BiV-ICD interrogation: DDDR/BiV: 70/130; Battery voltage: 2.89 volts; Remaining battery capacity: 57%; Underlying rhythm: Normal sinus rhythm, rate: 64 bpm; Sensing amplitude: A3.4/RV17.3/LV7.5 mV; Pacing threshold: A0.7/RV1.0/LV2.6 volts; Pacing impedance: A560/RV423/LV579 Ohms; Shock impedance: RV82 Ohms; Pacing A/LV/BiV/C[employer]: 41/1/98/99%; Atrial burden: 0.0%; No recent tachycardia recordings; No therapy delivered by ICD; Normal functioning BiV-ICD, no recent events, no therapy delivered by ICD, no recent AFib Patient is a 79-year-old female presented with post ICD firing. Denies any chest pain prior to the episode. Mentions compliance with medications. Serial high sensitive troponin has been negative and acute coronary syndrome is not considered. Patient had recent ischemic workup/cardiac catheterization and repeat ischemic workup is not indicated at this point. To restart outside medications and will add amiodarone at this point. Patient is on dual antiplatelet therapy for previously implanted stent. To be kept on aspirin/Plavix. Does have baseline history of ischemic/systolic heart failure which at this point is considered compensated. She is DNR. Does complain of dysuria and has history of UTIs (not new). Interrogation of ICD was performed and ruled out any recent episode or treatment. ICD firing (as per patient), Interrogation of ICD ruled out any recent episode and shock Ischemic cardiomyopathy, history of Systolic CHF s/p BiV-ICD implantation Coronary artery disease, status post CABG Status post PCI Diverticular disease Renal calculi Emphysema Kidney stone, history of Coronary artery disease, SP CABG GERD Hypertension Hyperlipidemia Gout Constipation UTI Cardiac suggestion for management: Manage on telemetry Follow-up electrolytes and kidney function tests and correct abnormalities. Keep potassium above 4 and magnesium above 2 Continue Aspirin/Plavix Amiodarone: 100 mg HS Continue Toprol-XL/Entresto/Aldactone/Ranolazine/Atorvastatin Evaluation and management of UTI/dysuria as per primary Cardiac monge, can be followed as outpatient Further evaluation and management depends on the above and clinical course A total of 55 minutes was spent reviewing the patient record, examining the patient, making a diagnostic and therapeutic plan, discussing this plan with medical personnel, following up on diagnostic studies and following the patient for clinical stability excluding any and all procedures. At least 50% of this time was spent in direct, [id number] contact. Thank you for allowing me to participate in this patient's care. Further recommendations will depend on patient's clinical course. Please do not hesitate to contact me if you have any questions or concerns. This medical document was created using electronic medical record system with [employer] computerized dictation system. Although this document has been carefully reviewed, there may still be some phonetic and typographical errors. These areas are purely typographical due to the imperfection of the software programs, and do not reflect any compromise in the patient's medical care. Dietary Evaluation Review Comments: continue current POC Expected Outcomes/Goals: To meet 75% estimated needs fu 3-5 days Plan discussed with: Patient, Other (nurse) RODRIGUEZ LEBRON MD Dec 07, 2024 07:30
--- NOTE | 2024-12-07 16:14 | DVHPN2 ---
Subjective Patient doing well, no complaints of firing of AICD currently. Reviewed: H&P Changes from previous H/P or p: No Changes General: Per HPI Eyes: No Pain, No Vision change, No Conjunctivae inflammation, No Eyelid inflammation, No Other, No Redness ENT: No Ear pain, No Ear discharge, No Nose pain, No Nose discharge, No Nose congestion, No Mouth pain, No Mouth swelling, No Throat pain, No Throat swelling, No Other Cardiovascular: Chest Pain; No Palpitations, No Orthopnea, No Paroxysmal Noc. Dyspnea, No Edema, No Lt Headedness, No Other Respiratory: No Cough, No Dry, No Shortness of breath, No SOB with excertion, No Wheezing, No Hemoptysis, No Pleuritic Pain, No Sputum, No Other Gastrointestinal: No Nausea, No Vomiting, No Abdominal Pain, No Diarrhea, No Constipation, No Melena, No Hematochezia, No Other Genitourinary: No Dysuria, No Frequency, No Incontinence, No Hematuria, No Retention, No Other Musculoskeletal: No other, No neck pain, No shoulder pain, No arm pain, No back pain, No hand pain, No leg pain, No foot pain Skin: No Rash, No Lesions, No Jaundice, No Bruising, No Other Objective Vitals Vital Signs Date Time Temp Pulse Resp B/P (MAP) Pulse Ox O2 Delivery O2 Flow Rate FiO2 12/07/24 13:00 97.9 62 15 110/59 (76) 94 97.9 12/07/24 11:39 Nasal Cannula 2.0 12/07/24 11:39 28 Intake/Output Intake and Output 12/07/24 07:00 Intake Total 2045 ml Output Total 600 ml Balance 1445 ml Intake Oral 2045 ml Output Urine Total 600 ml # Voids 5 # Bowel Movements 1 Exam GEN: Healthy appearing, well-developed, NAD. HEENT: NC/AT; MMM. CV: RRR, no m/r/g. LUNGS: CTAB, no w/r/c. ABD: Soft, NT/ND, NBS, no masses or organomegaly. EXT: skin Warm, well perfused. no rashes. No clubbing, cyanosis, or edema. NEURO: Ambulating with no limitations. No focal deficits. Medications Current Medications Medications Dose Ordered Sig/Asha Route Start Time Stop Time Status Last Admin Dose Admin Sodium Chloride 10 ml Q8HR IV 11/30/24 14:00 12/07/24 09:27 10 ML Ondansetron HCl 4 mg Q4HP PRN IV 11/30/24 08:30 12/07/24 09:21 4 MG Docusate Sodium 100 mg BIDPRN PRN PO 11/30/24 08:30 Acetaminophen 650 mg Q6HP PRN PO 11/30/24 08:30 12/01/24 21:33 650 MG Nitroglycerin 0.4 mg Q5MINP PRN SL 11/30/24 08:30 Morphine Sulfate 2 mg Q30M PRN IV 11/30/24 08:30 12/06/24 09:11 2 MG Ascorbic Acid 500 mg BID PO 11/30/24 10:00 12/07/24 09:27 500 MG Aspirin 81 mg DAILY PO 11/30/24 10:00 UNV Clopidogrel Bisulfate 75 mg DAILY PO 11/30/24 10:00 UNV Pantoprazole Sodium 40 mg DAILY PO 11/30/24 10:00 12/07/24 09:27 40 MG Polyethylene Glycol 17 gm DAILY PRN PO 11/30/24 08:30 Ranolazine 500 mg BID PO 11/30/24 10:00 UNV Cholecalciferol 2,000 unit BID PO 11/30/24 10:00 12/07/24 09:27 2,000 UNIT Fluoxetine HCl 20 mg DAILY PO 11/30/24 10:00 12/07/24 09:25 20 MG Patient Own Medication 1 puff BID IN 11/30/24 10:00 Patient Own Medication 1 tab DAILY PO 11/30/24 10:00 UNV Aspirin 81 mg DAILY PO 11/30/24 10:00 12/07/24 09:25 81 MG Spironolactone 25 mg DAILY PO 11/30/24 10:00 12/07/24 09:25 25 MG Ranolazine 500 mg BID PO 11/30/24 10:00 12/07/24 09:26 500 MG Clopidogrel Bisulfate 75 mg DAILY PO 11/30/24 10:00 12/07/24 09:26 75 MG Metoprolol Succinate 25 mg DAILY PO 11/30/24 10:00 12/07/24 09:27 25 MG Sacubitril/ Valsartan 1 tab BID PO 11/30/24 10:00 12/07/24 09:25 1 TAB Phenazopyridine HCl 100 mg BID PO 12/01/24 22:00 12/07/24 09:25 100 MG Morphine Sulfate 2 mg Q4HPRN PRN IV 12/02/24 16:00 12/07/24 09:23 2 MG Oxycodone/ Acetaminophen 2 tab Q6HP PRN PO 12/02/24 16:00 12/06/24 04:10 2 TAB Ampicillin Sodium/ Sulbactam Sodium 3 gm/Sodium Chloride 100 ml @ 100 mls/hr Q6H IV 12/02/24 17:00 12/07/24 06:13 100 MLS/HR Amiodarone HCl 100 mg HS PO 12/03/24 22:00 12/06/24 19:56 100 MG Albuterol 2.5 mg Q6HPRN PRN NEB 12/03/24 17:00 12/07/24 11:39 2.5 MG Ipratropium [place] 0.5 mg Q6HPRN PRN NEB 12/03/24 17:00 12/07/24 11:39 0.5 MG Laboratory Results Laboratory Tests 12/02/24 07:13 12/03/24 05:18 Urinalysis Test 12/02/24 05:51 12/04/24 23:59 Urine WBC Clumps Present /hpf (None Seen) Urine Color Dark-orange (Yellow) Urine Clarity Clear (Clear) Urine pH 5.5 (5.0-9.0) Urine Specific [place] 1.030 (1.001-1.035) Urine Protein Trace (Negative) H Urine Ketones Negative (Negative) Urine Blood Negative /uL (Negative) Urine Nitrite 1+ (Negative) H Urine Bilirubin 1+ (Negative) H Urine Urobilinogen 2 mg/dL (Negative) H Urine Leukocyte Esterase Negative /uL (Negative) Urine RBC 1 /hpf (0 - 4) Urine Microscopic WBC 2 /HPF (0-5) Urine Squamous Epithelial Cells Few /hpf (<5) Urine Bacteria None seen /hpf (None Seen) Urine Hyaline Casts Few /lpf (0 - 2) Urine Mucus Few (None Seen) Urine Glucose Normal mg/dL (Normal) Microbiology Microbiology Date/Time Source Procedure Growth Status 12/02/24 05:51 Urine - Midstream Clean Catch Urine Culture - Final Complete Labs and/or images reviewed: Labs reviewed by me, Image(s) reviewed by me Assessment/Plan Assessment/Plan 12/01 - patient here for AICD firing discharge x2. Hospice revocation status. Patient is full code status right now. Cardiology following and waiting for interrogation of AICD Biotronik. We will continue to follows alongside with cardiology. No evidence of UTI,no urine culture. 12/02 UA was taken and showing recurrent UTI similar to her prior multiple visits. We will start ceftriaxone. Biotronik rep to come today to do device interrogation. Nurses following up. 12/03 urine culture has not resulted. Device interrogation is unconcerning. Patient wants to go back to hospice we will touch base with social. 12/04 patient has been discharge. See discharge summary for complete details 12/05 patient pending transfer back to primary facility. Social workers consulted. Patient complaining of right hip pain, we will get portable x-ray to evaluate, likely osteoarthritis chronic. Continue pain control PRN. 12/06 Patient has been stable for discharge. We evaluated right hip pain with x- ray which shows chronic osteoarthritis. Can give patient baclofen for pain relief as she goes back home to her living facility foremost with hospice. RN and social workers [facility] notified that patient has been stable for discharge. 12/07 - stable for discharge. patient stable. AICD discharge, LENORA on CKD, VMN likely, Acute complicated cystitis, multiple recurrences. hyperkalemia CAD, CHF, Hypertension, Hyperlipidemia, GERD, PLAN: per cards: Manage on telemetry. Continue Aspirin/Plavix. Awaiting interrogation of ICD (Biotronik). Amiodarone for now. Continue Toprol- XL/Entresto/Aldactone/Ranolazine/Atorvastatin. -concern UTI unasyn. in hospice for recurrent UTI. - continue other home medications. Diet regular DVT prophylaxis-Lovenox GI prophylaxis-tolerating p.o. Tele Full code Plan discussed with: Patient Date of Service: Dec 07, 2024 Billing Provider: DELFINO VICENTE MD Common Visit Codes: [id number] INP/OBS CARE(MOD) DELFINO VICENTE MD Dec 07, 2024 16:14
== END 2024-12-07 15:30 | disposition hospice, inpatient (51) | DRG 291 ==
LOC: EDBD 02:01 → ER 02:01 → OVERFLOW 08:20 → TELE-WESTW 23:48
PROVIDERS: ADMIT Student in an Organized Health Care Education/Training Program; ATTEND Student in an Organized Health Care Education/Training Program
PROC: 05H933Z Insertion of Infusion Device into Right Brachial Vein, Percutaneous Approach (ICD-10-PCS; 2024-11-30)
PROC: B54MZZA Ultrasonography of Right Upper Extremity Veins, Guidance (ICD-10-PCS; 2024-11-30)
PROC: 4B02XTZ Measurement of Cardiac Defibrillator, External Approach (ICD-10-PCS; principal; 2024-12-03)
DX: I13.0 Hypertensive heart and chronic kidney disease with heart failure and stage 1 through stage 4 chronic kidney disease, or unspecified chronic kidney disease (principal); I50.43 Acute on chronic combined systolic (congestive) and diastolic (congestive) heart failure; N17.0 Acute kidney failure with tubular necrosis; N30.00 Acute cystitis without hematuria; J96.10 Chronic respiratory failure, unspecified whether with hypoxia or hypercapnia; I25.10 Atherosclerotic heart disease of native coronary artery without angina pectoris; Z51.5 Encounter for palliative care; E78.5 Hyperlipidemia, unspecified; Z66 Do not resuscitate; K21.9 Gastro-esophageal reflux disease without esophagitis; I25.5 Ischemic cardiomyopathy; K59.00 Constipation, unspecified; E87.5 Hyperkalemia; G89.29 Other chronic pain; M10.9 Gout, unspecified; K57.30 Diverticulosis of large intestine without perforation or abscess without bleeding; J43.9 Emphysema, unspecified; J44.89 Other specified chronic obstructive pulmonary disease; N18.9 Chronic kidney disease, unspecified; F41.9 Anxiety disorder, unspecified; F32.A Depression, unspecified; G20.C Parkinsonism, unspecified; Z87.442 Personal history of urinary calculi; Z99.3 Dependence on wheelchair; Z95.810 Presence of automatic (implantable) cardiac defibrillator; Z79.899 Other long term (current) drug therapy; Z88.1 Allergy status to other antibiotic agents; Z88.8 Allergy status to other drugs, medicaments and biological substances; Z79.82 Long term (current) use of aspirin; Z95.5 Presence of coronary angioplasty implant and graft; Z90.710 Acquired absence of both cervix and uterus; Z95.1 Presence of aortocoronary bypass graft; Z86.73 Personal history of transient ischemic attack (TIA), and cerebral infarction without residual deficits; Z88.5 Allergy status to narcotic agent; Z79.02 Long term (current) use of antithrombotics/antiplatelets; Z83.3 Family history of diabetes mellitus; Z82.49 Family history of ischemic heart disease and other diseases of the circulatory system; Z86.16 Personal history of COVID-19; I25.2 Old myocardial infarction; Z87.440 Personal history of urinary (tract) infections; Z87.891 Personal history of nicotine dependence; Z90.49 Acquired absence of other specified parts of digestive tract
CPT/HCPCS: 36415; 71045; 73501; 80048; 80053; 81001; 83735; 83880; 84443; 84484; 85025; 85379; 87086; 93005; 93306; 94640; G0378; J1885; J2405

== ENCOUNTER 2024-12-19 16:10 | Inpatient (IN) | payer OTHER, MEDICAID ==
[~2024-12-19] VITALS: Ht 165.1 cm; Wt 70.2 kg
--- NOTE | 2024-12-19 16:21 | ED.PDOC ---
HPI Comments HPI: Past Medical history: AICD discharge Ruled out arrhythmias ruled out LENORA on CKD, VMN likely, Acute complicated cystitis, multiple recurrences. hyperkalemia, resolved Hypertension, Hyperlipidemia, GERD, Ischemic cardiomyopathy, history of Systolic CHF s/p BiV-ICD implantation Coronary artery disease, status post CABG Status post PCI hx Diverticular disease Coronary artery disease, SP CABG GERD Gout Past Surgical history: Appendectomy, CABG (x 4), Hysterectomy, Other (AICD, PTCA, ), 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 Medications: ASA, Plavix Social History: Denies smoking, ETOH, and drug use. Allergies: NKA HPI: Poor Historian. REVIEW OF SYSTEMS: CONSTITUTIONAL: Denies acute: fever, diaphoresis, chills, HEAD: Denies acute: headache, photophobia Eyes: Denies acute: Double vision, vision loss, eye pain, eye discharge. EARS: Denies acute: tinnitus, hearing loss, ear discharge, ear pain, THROAT: Denies acute: sore throat, swelling, difficulty swallowing , pain with swallowing, change in voice. NECK: Denies acute: neck pain, neck swelling, stiff neck. HEART: Denies acute : palpitations, LUNGS: Denies acute: SOB, wheezing, cough, hemoptysis ABDOMEN: Denies acute: Nausea, Vomiting, diarrhea, melena , hematemesis, hematochezia SKIN: Denies acute: rash, redness, lesions, itchiness. EXTREMITIES: Denies acute: calf pain, numbness, tingling, weakness, denies pain in extremity. Denies acute: Low back pain. Neuro: Denies acute: focal neurological deficit, motor or sensory focal neurological deficit, tremors, seizure like activity, confusion, dizziness, change in mental status, loss of bowel or bladder function, cauda equina like symptoms. : Denies acute: dysuria, hematuria, flank pain, increase in urinary frequency. PSYCH: Denies acute: hallucination, suicidal ideation, homicidal ideation. FEMALE: Denies acute: abnormal vaginal bleeding, foul odor, unusual discharge. PHYSICAL EXAM: General: -----[id number]---acute distress, awake and alert. Head: normocephalic, atraumatic. Neck: supple, trachea is midline, no swelling. Throat: Normal phonation. Eyes:, no erythema, no purulent discharge, no proptosis, no icterus. Heart: regular rate, regular rhythm, no significant murmur appreciated. Lungs: no apparent respiratory distress, Able to speak in full sentences. No wheezing, no rhonchi, no crackles. No stridors Clear to auscultation bilaterally. Abdomen: Mild nonspecific lower abdominal tender to palpation, non distended, soft, no guarding, no rebound, + bowel sounds. Neuro: Awake, Alert, oriented to name, self, situation, follows commands GCS=15. Speech is normal. Skin: no petechia, no purpura, no cyanosis, non-pale, not jaundice. Lower extremities: --no - Pitting edema no deformity, no focal swelling, no calf TTP. Makes eye contact. moves all four extremities. No CVA tenderness to percussion. Face: no apparent facial droop. ED COURSE: DISCLAIMER: This medical document was created using an electronic medical record system with voice recognition software and computerized dictation system. Although this document has been carefully reviewed, there might still be some phonetic and typographical errors. Occasional wrong-word or "sound-alike" substitutions may have occurred due to the inherent limitations of voice recognition software. These areas are purely typographical due to imperfections of the software programs and do not reflect any compromise in the patient's medical care. Please read the chart carefully and recognize, using context, where these substitutions have occurred. 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 MEJIA Hydrocodone (Verified Allergy, Unknown, rash, 05/18/23) tylenol is okay per patient Home Meds Active Scripts Oxycodone W/ Acetaminophen (Percocet 5/325MG) 1 Tab Tb, 1 TAB PO QID, #30 TAB Prov:JANE VEGA MD 09/29/24 Phenazopyridine HCl (Eq Urinary Pain Relief Ma) 99.5 Mg Tab, 99.5 MG PO TID for 10 Days, #30 TAB Prov:PHILL LEAL RESDIENT 09/23/24 Metoprolol Succinate (Metoprolol Succinate Er) 25 Mg Tab, 1 TAB PO DAILY for 30 Days, #30 TAB 5 Refills Prov:JAVIER Francisco JavierAXEL RESIDENT 09/06/24 Spironolactone (Aldactone) 25 Mg Tab, 25 MG PO DAILY for 30 Days, #30 TAB Prov:BHARAT MICHELLE RESIDENT 07/22/24 Oxybutynin Chloride (Oxybutynin Chloride) 5 Mg Tab, 5 MG PO Q8HR for 30 Days, #90 TAB Prov:BHARAT MICHELLE RESIDENT 07/22/24 Atorvastatin Calcium (ATORVASTATIN CALCIUM) 20 Mg Tab, 40 MG PO HS for 30 Days, #60 TAB Prov:BHARAT MICHELLE [facility] 07/22/24 Acetaminophen (Acetaminophen) 325 Mg Tab, 650 MG PO TID for 10 Days, #60 TAB Prov:BHARAT MICHELLE [facility] 07/22/24 Duloxetine Hydrochloride (Duloxetine Hydrochloride) 30 Mg Cap, 30 MG PO DAILY for 30 Days, #30 CAP Prov:WINSOME GOMEZ MD 04/29/24 Clopidogrel Bisulfate (CLOPIDOGREL) 75 Mg Tab, 75 MG PO DAILY for 30 Days, #30 T AB 5 Refills Prov:YENNY FRAIRE MD 11/26/23 Ranolazine (Ranolazine ER) 500 Mg Tab, 500 MG PO BID for 30 Days, #60 TAB 2 Refills Prov:MAGAN RUSS RESIDENT 09/16/23 Reported Medications Polyethylene Glycol 3350 (Miralax) 17 Gm Pow, 17 GM PO DAILY PRN for FOR CONSTIPATION for 30 Days, #30 01/28/24 Ipratropium-Albuterol (Ipratropium [place]/Albut) 1 Yuli Yuli, 1 VIAL NEB Q6HPRN PRN for SHORTNESS OF BREATH for 13 Days, #180 09/05/23 Fluticasone-Salmeterol (Fluticasone Propionate/SA 250-50 Mcg/Dose) 1 Aer Aer, 1 PUFF INH BID for 30 Days, #60 09/05/23 Albuterol Sulfate (Albuterol Sulfate Hfa) 108 Mcg/Act Aer, 2 PUFF INH Q4HPRN PRN for dyspnea for 17 Days, #18 09/05/23 Cholecalciferol (VITAMIN D3) 2,000 Unit Tab, 1 TAB PO BID for 30 Days, #60 08/28/23 Multiple Vitamin (Tab-A-Radha) Tab, 1 TAB PO DAILY for 30 Days, #30 08/28/23 Aspirin (Aspir-Low) 81 Mg Tab, 1 TAB PO DAILY for 30 Days, #30 08/28/23 Ascorbic Acid (VITAMIN C TABLET) 500 Mg Tb, 1 TAB PO BID for 30 Days, #60 05/18/23 Pantoprazole Sodium Sesquihydr (Pantoprazole Sodium) 40 Mg Tab, 1 TAB PO DAILY 05/18/23 Fluoxetine HCl (Pmdd) (Fluoxetine HCl) 20 Mg Tab, 20 MG PO DAILY, TAB 05/30/20 Information Source: Emergency Med Personnel Mode of Arrival: EMS Past Medical History PAST MEDICAL HISTORY: Anemia, Anxiety, Asthma, CAD, CHF, CKF, COPD, CVA, Depression, GERD, Gout, High Lipids, HTN, Kidney Stones, RI, UTI'S Surgical History: Appendectomy, CABG, Hysterectomy, Pacemaker, PTCA, 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 Was a procedure done?: No CP Differential Dx Differential Diagnosis: N/A Differential Diagnosis: Other (Ddx include but not limitied to gastritis, musculoskeletal pain, radiculopathy, atypical chest pain, dissection, aneurysm, ACS, unstable angina, hiatal hernia, GERD, anxiety, costochondritis, PE, pneumothroax, neoplasm, cardiac ischemia, drug abuse, anemia.) X-Ray, Labs, Meds, VS Vital Signs Date Time Temp Pulse Resp B/P (MAP) Pulse Ox O2 Delivery O2 Flow Rate FiO2 12/19/24 18:44 124/59 12/19/24 18:31 80 14 124/59 (80) 99 12/19/24 17:00 70 12/19/24 16:37 99.2 80 14 114/54 (74) 97 99.2 12/19/24 16:37 80 14 97 Nasal Cannula 2.0 12/19/24 16:16 98.1 77 16 173/83 (113) 98 98.1 12/19/24 16:13 77 Lab Test 12/19/24 17:37 12/19/24 16:52 12/19/24 16:33 Range/Units Troponin I High Sensitivity 32 33 </=34 ng/L Urine Color [place] H Yellow Urine Clarity Turbid H Clear Urine pH 5.5 5.0-9.0 Urine Specific [place] 1.033 1.001-1.035 Urine Protein 1+ H Negative Urine Ketones Negative Negative Urine Blood Negative Negative /uL Urine Nitrite Negative Negative Urine Bilirubin Negative Negative Urine Urobilinogen 2 H Negative mg/dL Urine Leukocyte Esterase 1+ Negative /uL Urine RBC 6 0 - 4 /hpf Urine Microscopic WBC 12 H 0-5 /HPF Urine Squamous Epithelial Cells Few <5 /hpf Urine Bacteria Few H None Seen /hpf Urine Hyaline Casts Few 0 - 2 /lpf Urine Mucus Few None Seen Urine Glucose Normal Normal mg/dL White Blood Count 9.5 4.4-10.8 10^3/uL Red Blood Count 4.34 4.0-5.20 10^6/uL Hemoglobin 13.1 12.2-16.2 g/dL Hematocrit 39.1 36.0-46.0 % Mean Corpuscular Volume 90.2 80.0-100.0 fL Mean Corpuscular Hemoglobin 30.3 28.0-32.0 pg Mean Corpuscular Hemoglobin Concent 33.6 32.0-36.0 g/dL Red Cell Distribution Width 17.2 H 11.8-14.3 % Platelet Count 313 140-450 10^3/uL Mean Platelet Volume 7.5 6.9-10.8 fL Neutrophils (%) (Auto) 72.2 37.0-80.0 % Lymphocytes (%) (Auto) 15.3 10.0-50.0 % Monocytes (%) (Auto) 9.9 0.0-12.0 % Eosinophils (%) (Auto) 2.0 0.0-7.0 % Basophils (%) (Auto) 0.6 0.0-2.0 % Neutrophils # (Auto) 6.9 1.6-8.6 10 ^3/uL Lymphocytes # (Auto) 1.5 0.4-5.4 10 ^3/uL Monocytes # (Auto) 0.9 0-1.3 10 ^3/uL Eosinophils # (Auto) 0.2 0-0.8 10 ^3/uL Basophils # (Auto) 0.1 0-0.2 10 ^3/uL Nucleated Red Blood Cells 0.0 % Sodium Level 142 136-145 mmol/L Potassium Level 4.6 3.5-5.1 mmol/L Chloride Level 107 98-107 mmol/L Carbon Dioxide Level 28 20-31 mmol/L Anion Gap 7 5-15 Blood Urea Nitrogen 18 9-23 mg/dL Creatinine 0.95 0.550-1.02 mg/dL Glomerular Filtration Rate Calc 61 >90 mL/min BUN/Creatinine Ratio 18.9 10.0-20.0 Serum Glucose 109 H 74-106 mg/dL Lactic Acid Level 1.4 0.4-2.0 mmol/L Calcium Level 9.4 8.7-10.4 mg/dL Total Bilirubin 0.6 0.2-1.0 mg/dL Aspartate Amino Transferase (AST) 18 13-40 U/L Alanine Aminotransferase (ALT) 10 7-40 U/L Alkaline Phosphatase 67 46-116 U/L B-Type Natriuretic Peptide 999.78 0-100 pg/mL Total Protein 6.3 5.7-8.2 g/dL Albumin 4.4 3.2-4.8 g/dL Lipase 27 12-53 U/L Current Medications Medications (Trade) Dose Ordered Sig/Asha Route Start Time Stop Time Status Last Admin Furosemide (Lasix Injection) 40 mg ONCE ONCE IV 12/19/24 18:00 12/19/24 18:01 DC 12/19/24 18:44 Levofloxacin (Levaquin Tablet) 500 mg ONCE ONCE PO 12/19/24 18:45 12/19/24 18:46 IA 12/19/24 18:40 [place] [address] Ph: [phone] DIAGNOSTIC IMAGING Diagnostic Imaging Report : [id number] Signed PATIENT: MONICA JAMES ACCT: [id number] UNIT: [id number] : 1945 LOC: ER ROOM / BED: / AGE / SEX: 79 / F ADM STATUS: REG ER SERVICE 1620 ORDERING PHYSICIAN: MIRIAN SANON DO PROCEDURE(s): CXRP - CHEST PORTABLE REASON: cp ORDER NUMBER(s): [id number], ACCESSION NUMBER(s): [id number] CHEST RADIOGRAPH Indication: cp Technique: Single frontal view of the chest was obtained Comparison: XY CHEST XRAY 1 VIEW on DOS: 11/30/24, XY CHEST XRAY 1 VIEW on DOS: 11/09/24, XY CHEST PORTABLE on DOS: 10/20/24 FINDINGS: Lines and Tubes: None Lungs: Element of atelectasis medially in the right base. Pleura: No effusion. No pneumothorax. Cardiomediastinal contours: Unremarkable Bones: No acute osseous abnormality. IMPRESSION: 1. Atelectasis right lower lobe. 2. Change in position of the pacemaker ATED BY: LIEN MENG Jr., DO DICTATED DATE/TIME: 12/19/241701 SIGNED BY: LIEN MENG Jr., SIGNED DATE/TIME: 12/19/241701 CC: [place] [address] Ph: [phone] DIAGNOSTIC IMAGING Diagnostic Imaging Report : [id number] Signed PATIENT: MONICA JAMES ACCT: [id number] UNIT: [id number] : 1945 LOC: ER ROOM / BED: / AGE / SEX: 79 / F ADM STATUS: REG ER SERVICE 1620 ORDERING PHYSICIAN: MIRIAN SANON DO PROCEDURE(s): ABPL - CT AB PEL WO CON-NO ORAL OR IV REASON: lower abd pain, flank pain ORDER NUMBER(s): [id number], ACCESSION NUMBER(s): [id number] Exam: CT CT AB PEL WO CON-NO ORAL OR IV History: lower abd pain, flank pain Comparison Study: CT CT AB PEL WO CON-NO ORAL OR IV on DOS: 11/09/24, CT CT AB PEL WO CON-NO ORAL OR IV on DOS: 09/25/24, CT CT AB PEL WO CON-NO ORAL OR IV on DOS: 09/04/24 TECHNIQUE: Multidetector CT of the abdomen and pelvis without IV contrast. Axial, coronal and sagittal multiplanar reformats were obtained from the axial data set by the technologist. Radiation Dose Information: CT Dose: CTDI volume is 9.5 mGy. Dose-length product is 436.24 mGy*cm FINDINGS: Bibasilar atelectasis. Partially visualized heart is unremarkable. Mild atrophy of the spleen. Liver, gallbladder, pancreas and adrenal glands are unremarkable. 8 mm hyperdense left renal upper pole to interpolar region lesion which may represent a hemorrhagic / proteinaceous cyst. Punctate nonobstructing left renal lower pole calculus. 1.8 cm right renal lower pole cyst. No hydronephrosis bilaterally. Urinary bladder is decompressed with adjacent fat stranding. Status post hysterectomy. Small hiatal hernia. Stomach is unremarkable. Small bowel loops are unremarkable. Appendix is unremarkable. Moderate amount of fecal material within the colon. Sigmoid diverticulosis without diverticulitis. No evidence of intraperitoneal free air or free fluid. No evidence of aortic aneurysm. Heavy atherosclerotic calcification of the aorta and bilateral iliacs. No significant lymphadenopathy. Tiny fat containing umbilical hernia. Small fat containing bilateral inguinal hernias. Surgical clips are noted over the left anterior inferior pelvis. No evidence of acute bony abnormalities. Multilevel moderate to severe degenerative changes of the lumbar spine. IMPRESSION: Urinary bladder is decompressed with mild wall thickening adjacent fat stranding. Recommend correlation with urinalysis for possible cystitis. Moderate amount of fecal material within the colon. Sigmoid diverticulosis without diverticulitis. Right renal cyst. Punctate nonobstructing left renal calculus with a possible subcentimeter left renal hemorrhagic/proteinaceous cyst. Additional findings as above. ATED BY: ARELIS ALMONTE DO DICTATED DATE/TIME: 12/19/248 SIGNED BY: ARELIS ALMONTE DO SIGNED DATE/TIME: 12/19/241717 CC: Time of 1ST Reevaluation: 19:13 Reevaluation 1ST: Improved Patient Education/Counseling: Diagnosis, Treatment Family Education/Counseling: No Family Present Comments MDM: patient presented with the above HPI.--chest pain and abdominal pain-- --workup was initiated. patient was found with the above mentioned diagnosis. the following medications were ordered: please refer to order lists of meds and tests obtained by myself Dr. Sanon. Patient ED course and VS have been stabilized. Patient has been reassessed in the ED and remained in a stable condition. Pertinent incidental findings were discussed with the patient and/or family. Patient/family voices understanding and is agreeable with plan. Patient has been observed in the ED adequate length of time to insure improvement/stability. Escalation of care considered: Consideration of escalation to observation or admission Patient was found with elevated BNP. Lasix was ordered Patient was ADMITTED to the medicine team for further evaluation and treatment of their presentation. All the reports of any imaging studies that were ordered by myself were reviewed by myself. SEPSIS Sepsis Screen Physician Orders Officer Captain (12/19/24 ) Chest Portable (12/19/24 16:20) Ct Ab Pel Wo Con-No Oral Or Iv (12/19/24 16:20) Troponin-I Hs (12/19/24 19:20) Saline Lock (12/19/24 16:22) Insert Joshi Catheter QSHIFT (12/19/24 17:59) Vital Signs Date Time Temp Pulse Resp B/P (MAP) Pulse Ox O2 Delivery O2 Flow Rate FiO2 12/19/24 18:44 124/59 12/19/24 18:31 80 14 124/59 (80) 99 12/19/24 17:00 70 12/19/24 16:37 99.2 80 14 114/54 (74) 97 99.2 12/19/24 16:37 80 14 97 Nasal Cannula 2.0 12/19/24 16:16 98.1 77 16 173/83 (113) 98 98.1 12/19/24 16:13 77 Laboratory Tests Test 12/19/24 16:33 Lactic Acid Level 1.4 mmol/L (0.4-2.0) White Blood Count 9.5 10^3/uL (4.4-10.8) Medications Medications Dose Ordered Sig/Asha Route Start Time Stop Time Status Last Admin Dose Admin Furosemide 40 mg ONCE ONCE IV 12/19/24 18:00 12/19/24 18:01 DC 12/19/24 18:44 Levofloxacin 500 mg ONCE ONCE PO 12/19/24 18:45 12/19/24 18:46 DC 12/19/24 18:40 Departure 1 Departure Time of Disposition: 17:57 Impression: Primary Impression: Chest pain Additional Impressions: CHF exacerbation UTI (urinary tract infection) Disposition: ADMITTED INPATIENT Admit to: Tele Condition: Guarded Discharged With: Self Critical Care Note Critical Care Time?: Yes (45 min-critical care time only) Heart Score Heart Score: Heart Score Response (Comments) Value History Moderate Suspicious 1 EKG N/A (Paced rhythm) 0 Age >65 2 Risk Factors >3 or Hx ASHD 2 Troponin Normal limit 0 Total 5 I personally scribed for MIRIAN SANON DO ([email or web address]) on 12/19/24 at 16:21. Electronically submitted by Shelby Sow ([employer]). I personally scribed for MIRIAN SANON DO ([email or web address]) on 12/19/24 at 16:24. Electronically submitted by Shelby Sow ([employer]). I personally scribed for MIRIAN SANON DO ([email or web address]) on 12/19/24 at 17:39. Electronically submitted by Shelby Sow ([employer]). MIRIAN SANON DO Dec 19, 2024 16:21
[2024-12-19 16:43] LABS: Hematocrit 39.1 % (36.0-46.0); Hemoglobin 13.1 g/dL (12.2-16.2); Mean Corpuscular Hemoglobin 30.3 pg (28.0-32.0); Mean Corpuscular Volume 90.2 fL (80.0-100.0); Nucleated Red Blood Cells % 0.0 %
[2024-12-19 17:01] LABS: Alanine Aminotransferase 10 U/L (7-40); Albumin 4.4 g/dL (3.2-4.8); Alkaline Phosphatase 67 U/L (46-116); Anion Gap 7 (5-15); BUN/Creatinine Ratio 18.9 (10.0-20.0); Blood Urea Nitrogen 18 mg/dL (9-23); Calcium 9.4 mg/dL (8.7-10.4); Carbon Dioxide 28 mmol/L (20-31); Chloride 107 mmol/L (98-107); Lipase 27 U/L (12-53); Potassium 4.6 mmol/L (3.5-5.1); Sodium 142 mmol/L (136-145); Total Protein 6.3 g/dL (5.7-8.2)
[2024-12-19 17:02] LABS: Bilirubin, Total 0.6 mg/dL (0.2-1.0); Glucose 109 mg/dL (74-106)
--- NOTE | 2024-12-19 17:05 | DVH ---
CHEST RADIOGRAPH Indication: cp Technique: Single frontal view of the chest was obtained Comparison: XY CHEST XRAY 1 VIEW on DOS: 11/30/24, XY CHEST XRAY 1 VIEW on DOS: 11/09/24, XY CHEST GONZALEZ BLE on DOS: 10/20/24 FINDINGS: Lines and Tubes: None Lungs: Element of atelectasis medially in the right base. Pleura: No effusion. No pneumothorax. Cardiomediastinal contours: Unremarkable Bones: No acute osseous abnormality. IMPRESSION: 1. Atelectasis right lower lobe. 2. Change in position of the pacemaker
--- NOTE | 2024-12-19 17:20 | DVH ---
Exam: CT CT AB PEL WO CON-NO ORAL OR IV History: lower abd pain, flank pain Comparison Study: CT CT AB PEL WO CON-NO ORAL OR IV on DOS: 11/09/24, CT CT AB PEL WO CON-NO ORAL OR I V on DOS: 09/25/24, CT CT AB PEL WO CON-NO ORAL OR IV on DOS: 09/04/24 TECHNIQUE: Multidetector CT of the abdomen and pelvis without IV contrast. Axial, coronal and sagitta l multiplanar reformats were obtained from the axial data set by the technologist. Radiation Dose Information: CT Dose: CTDI volume is 9.5 mGy. Dose-length product is 436.24 mGy*cm FINDINGS: Bibasilar atelectasis. Partially visualized heart is unremarkable. Mild atrophy of the spleen. Liver, gallbladder, pancreas and adrenal glands are unremarkable. 8 mm hyperdense left renal upper pole to interpolar region lesion which may represent a hemorrhagic / proteinaceous cyst. Punctate nonobstructing left renal lower pole calculus. 1.8 cm right renal lower pole cyst. No hydronephrosis bilaterally. Urinary bladder is decompressed with adjacent fat strandin g. Status post hysterectomy. Small hiatal hernia. Stomach is unremarkable. Small bowel loops are unremarkable. Appendix is unrema rkable. Moderate amount of fecal material within the colon. Sigmoid diverticulosis without diverticul itis. No evidence of intraperitoneal free air or free fluid. No evidence of aortic aneurysm. Heavy atherosclerotic calcification of the aorta and bilateral iliac s. No significant lymphadenopathy. Tiny fat containing umbilical hernia. Small fat containing bilateral inguinal hernias. Surgical clips are noted over the left anterior inferior pelvis. No evidence of acute bony abnormalities. Multilevel moderate to severe degenerative changes of the azucena mbar spine. IMPRESSION: Urinary bladder is decompressed with mild wall thickening adjacent fat stranding. Recommend correlat ion with urinalysis for possible cystitis. Moderate amount of fecal material within the colon. Sigmoid diverticulosis without diverticulitis. Right renal cyst. Punctate nonobstructing left renal calculus with a possible subcentimeter left edgar al hemorrhagic/proteinaceous cyst. Additional findings as above.
[2024-12-19 18:10] LABS: Urine Protein, UAD 1+ (Negative)
[2024-12-19] MEDS: levoFLOXacin 500 MG TAB PO ONE (18:40)
[2024-12-19] MEDS: FUROSEMIDE 40 MG/4 ML VIAL IV ONE (18:44)
--- NOTE | 2024-12-19 18:53 | ECG ---
[facility] Test Date: 2024-12-19 Test Time: 16:13:22 Pat Name: MONICA JAMES Department: ED Room: 0296T Gender: F Pediatric Registered Nurse: chema : 1945 Requested By: MIRIAN SANON Order Number: [id number] Reading MD: Adair Mijares Measurements Intervals [place] Rate: 77 P: 89 TN: 198 QRS: 254 QRSD: 117 T: 87 QT: 431 QTc: 488 Interpretive Statements Atrial-sensed ventricular-paced rhythm No further analysis attempted due to paced rhythm Electronically Signed On 12-23-2024 17:47:38 PDT by Adair Mijares Please click the below link to view image of tracing.
[2024-12-19] MEDS ORDERED: HYDROcodone-ACET 5/325MG TAB PO PRN (20:15)
[2024-12-19] MEDS ORDERED: ALBUTEROL SULF HFA 90MCG INH 200DOSE IN PRN (20:15)
[2024-12-19] MEDS ORDERED: IPRATROPIUM ALBUTEROL NEB PRN (20:15)
[2024-12-19] MEDS ORDERED: POLYETHYLENE GLYCOL 17 GM PWDR PO PRN (20:15)
--- NOTE | 2024-12-19 20:30 | DVHHP2 ---
Admitting Diagnosis: chest pain History of Present Illness pt is 79 y.o. woman, AICD discharge Ruled out, arrhythmias ruled out, LENORA on CKD, VMN likely, Acute complicated cystitis, multiple recurrences,h yperkalemia, resolved, Hypertension, Hyperlipidemia, GERD, Ischemic cardiomyopathy, history of Systolic CHF, s/p BiV-ICD implantation, Coronary artery disease, status post CABG, Status post PCI, hx Diverticular disease, Coronary artery disease, SP CABG, GERD, Gout, presented to hospital with chest pain. pt states chest pain started today with localized to left chest. Pt lower leg swelling is worsening. no fever, chills, n/v/,c/d/ headache, numbness or tingling. Past Surgical history: Appendectomy, CABG (x 4), Hysterectomy, Other (AICD, PTCA, ), 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 Medications: ASA, Plavix Social History: Denies smoking, ETOH, and drug use. Allergies: NKA REVIEW OF SYSTEMS: CONSTITUTIONAL: denies acute: fever, diaphoresis, chills, HEAD:Denies acute: headache, photophobia Eyes:Denies acute: Double vision, vision loss, eye pain, eye discharge. EARS: Denies acute: tinnitus, hearing loss, ear discharge, ear pain, THROAT: Denies acute: sore throat, swelling, difficulty swallowing , pain with swallowing, change in voice. NECK:Denies acute: neck pain, neck swelling, stiff neck. HEART:Denies acute : palpitations, LUNGS:Denies acute: SOB, wheezing, cough, hemoptysis ABDOMEN:Denies acute: Nausea, Vomiting, diarrhea, melena , hematemesis, hematochezia SKIN:Denies acute: rash, redness, lesions, itchiness. EXTREMITIES:Denies acute: calf pain, numbness, tingling, weakness, denies pain in extremity. Denies acute: Low back pain. Neuro:Denies acute: focal neurological deficit, motor or sensory focal neur ological deficit, tremors, seizure like activity, confusion, dizziness, change in mental status, loss of bowel or bladder function, cauda equina like symptoms. : Denies acute: dysuria, hematuria, flank pain, increase in urinary frequency. 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: Ovarian Cysts Family History: Reviewed,noncontributory to illness, Unknown Smoker: Non-Smoker Alcohol: Denies ETOH Use Drugs: Denies Drug Use Lives In: Assisted Care Patient Family History: Arthritis Cardiovascular disease G8 MOTHER, Onset:Unknown Cerebrovascular accident (CVA) G8 FATHER Coronary artery disease G8 MOTHER, Onset:Unknown FH: diabetes mellitus G8 MOTHER, Onset:Unknown FH: heart disease G8 MOTHER, Onset:Unknown FH: hypertension G8 MOTHER, Onset:Unknown FH: lupus 19 CHILD FH: myocardial infarction G8 MOTHER, Onset:Unknown Family history: Cardiovascular disease G8 MOTHER, Onset:Unknown G8 FATHER, Onset:Unknown Glaucoma G8 MOTHER, Onset:Unknown Allergies: Coded Allergies: Ceftriaxone (Verified Allergy, Intermediate, generalized rash, 11/08/22) C[employer] FINISHERCARLENE MEJIA Hydrocodone (Verified Allergy, Unknown, rash, 05/18/23) tylenol is okay per patient Home Meds Active Scripts Oxycodone W/ Acetaminophen (Percocet 5/325MG) 1 Tab Tb, 1 TAB PO QID, #30 TAB Prov:JANE VEGA MD 09/29/24 Phenazopyridine HCl (Eq Urinary Pain Relief Ma) 99.5 Mg Tab, 99.5 MG PO TID for 10 Days, #30 TAB Prov:PHILL LEAL RESDIENT 09/23/24 Metoprolol Succinate (Metoprolol Succinate Er) 25 Mg Tab, 1 TAB PO DAILY for 30 Days, #30 TAB 5 Refills Prov:AXEL CARABALLO RESIDENT 09/06/24 Spironolactone (Aldactone) 25 Mg Tab, 25 MG PO DAILY for 30 Days, #30 TAB Prov:BHARAT MICHELLE RESIDENT 07/22/24 Oxybutynin Chloride (Oxybutynin Chloride) 5 Mg Tab, 5 MG PO Q8HR for 30 Days, #90 TAB Prov:BHARAT MICHELLE RESIDENT 07/22/24 Atorvastatin Calcium (ATORVASTATIN CALCIUM) 20 Mg Tab, 40 MG PO HS for 30 Days, #60 TAB Prov:BHARAT MICHELLE RESIDENT 07/22/24 Acetaminophen (Acetaminophen) 325 Mg Tab, 650 MG PO TID for 10 Days, #60 TAB Prov:BHARAT MICHELLE RESIDENT 07/22/24 Duloxetine Hydrochloride (Duloxetine Hydrochloride) 30 Mg Cap, 30 MG PO DAILY for 30 Days, #30 CAP Prov:WINSOME GOMEZ MD 04/29/24 Clopidogrel Bisulfate (CLOPIDOGREL) 75 Mg Tab, 75 MG PO DAILY for 30 Days, #30 TAB 5 Refills Prov:YENNY FRAIRE MD 11/26/23 Ranolazine (Ranolazine ER) 500 Mg Tab, 500 MG PO BID for 30 Days, #60 TAB 2 Refills Prov:RUSSMAGAN RESIDENT 09/16/23 Reported Medications Polyethylene Glycol 3350 (Miralax) 17 Gm Pow, 17 GM PO DAILY PRN for FOR CONSTIPATION for 30 Days, #30 01/28/24 Ipratropium-Albuterol (Ipratropium [place]/Albut) 1 Uyli Yuli, 1 VIAL NEB Q6HPRN PRN for SHORTNESS OF BREATH for 13 Days, #180 09/05/23 Fluticasone-Salmeterol (Fluticasone Propionate/SA 250-50 Mcg/Dose) 1 Aer Aer, 1 PUFF INH BID for 30 Days, #60 09/05/23 Albuterol Sulfate (Albuterol Sulfate Hfa) 108 Mcg/Act Aer, 2 PUFF INH Q4HPRN PRN for dyspnea for 17 Days, #18 09/05/23 Cholecalciferol (VITAMIN D3) 2,000 Unit Tab, 1 TAB PO BID for 30 Days, #60 08/28/23 Multiple Vitamin (Tab-A-Radha) Tab, 1 TAB PO DAILY for 30 Days, #30 08/28/23 Aspirin (Aspir-Low) 81 Mg Tab, 1 TAB PO DAILY for 30 Days, #30 08/28/23 Ascorbic Acid (VITAMIN C TABLET) 500 Mg Tb, 1 TAB PO BID for 30 Days, #60 05/18/23 Pantoprazole Sodium Sesquihydr (Pantoprazole Sodium) 40 Mg Tab, 1 TAB PO DAILY 05/18/23 Fluoxetine HCl (Pmdd) (Fluoxetine HCl) 20 Mg Tab, 20 MG PO DAILY, TAB 05/30/20 Current Medications Current Medications Medications (Trade) Dose Ordered Sig/Asha Route PRN Reason Start Time Stop Time Status Last Admin Sodium Chloride (Saline Lock Ns) 10 ml Q8HR IV 12/19/24 22:00 Docusate Sodium (Colace Capsule) 100 mg BIDPRN PRN PO FOR CONSTIPATION 12/19/24 20:15 Acetaminophen (Tylenol Tablet) 650 mg Q6HP PRN PO PAIN SCALE 1-3 OR TEMP>100.4 12/19/24 20:15 Acetaminophen/ Hydrocodone Bitart ([place] 5/325MG Tab) 1 tab Q4HP PRN PO MODERATE PAIN (4-6 PAIN SCALE) 12/19/24 20:15 UNV Hydromorphone HCl (Dilaudid Injection) 0.5 mg Q4HP PRN IV SEVERE PAIN (7-10 PAIN SCALE) 12/19/24 20:15 UNV Ondansetron HCl (Zofran) 4 mg Q4HP PRN IV NAUSEA / VOMITING 12/19/24 20:15 Enoxaparin Sodium (Lovenox) 40 mg DAILY SC 12/20/24 10:00 Ceftriaxone Sodium 50 ml @ 100 mls/hr DAILY IV 12/20/24 10:00 UNV Furosemide (Lasix Injection) 40 mg BID IV 12/19/24 22:00 Albuterol (Ventolin Hfa) 108 mcg Q4HPRN PRN IN dyspnea 12/19/24 20:15 UNV Ascorbic Acid (Vitamin C Tablet) 500 mg BID PO 12/19/24 22:00 Aspirin (Ecotrin Enteric Coated Tablet) 81 mg DAILY PO 12/20/24 10:00 Atorvastatin Calcium (Lipitor) 40 mg HS PO 12/19/24 22:00 Clopidogrel Bisulfate (Plavix) 75 mg DAILY PO 12/20/24 10:00 Duloxetine HCl (Cymbalta Capsule) 30 mg DAILY PO 12/20/24 10:00 Multivitamins (Mvi Tab) 1 tab DAILY PO 12/20/24 10:00 Oxybutynin Chloride (Ditropan Tablet) 5 mg Q8HR PO 12/19/24 22:00 Pantoprazole Sodium (Protonix Tablet) 40 mg DAILY PO 12/20/24 10:00 Polyethylene Glycol (Miralax 17GM Powder) 17 gm DAILY PRN PO FOR CONSTIPATION 12/19/24 20:15 Ranolazine (Ranexa ER) 500 mg BID PO 12/19/24 22:00 Spironolactone (Aldactone) 25 mg DAILY PO 12/20/24 10:00 Patient Own Medication 1 tab BID PO 12/19/24 22:00 UNV Patient Own Medication 20 mg DAILY PO 12/20/24 10:00 UNV Patient Own Medication 1 puff BID INH 12/19/24 22:00 UNV Patient Own Medication 1 vial Q6HPRN PRN NEB SHORTNESS OF BREATH 12/19/24 20:15 UNV Patient Own Medication 1 tab DAILY PO 12/20/24 10:00 UNV Patient Own Medication 99.5 mg TID PO 12/19/24 22:00 UNV Vital Signs Vital Signs Date Time Temp Pulse Resp B/P (MAP) Pulse Ox O2 Delivery O2 Flow Rate FiO2 12/19/24 20:00 63 12/19/24 18:44 124/59 12/19/24 18:31 14 99 12/19/24 16:37 99.2 99.2 12/19/24 16:37 Nasal Cannula 2.0 Physical Exam gen 79 y.o. wn, wd, resting in bed. NAD. HEENT: AT/NC Heart: RRR Lung: CTA b/l Abd: soft, non-tender, non-distended Msk: pedal edema, no cyanosis Neuro: AOx3, no focal deficit SEPSIS Sepsis Screen Date sepsis recognized/suspect: Dec 19, 2024 Time Sepsis recognized/suspect: 1614 Recent Procedure: No On Antibiotic Therapy: No Respiratory Rate >20: No Heart Rate >90: No Temp<36 C (96.8 F) or >38.3 C: No SBP <90 or MAP <65 mmHG: No New Acute Mental Status Change: No Is the patient on CPAP, BIPAP,: No Physician Orders Engraver Flatware (12/19/24 ) Chest Portable (12/19/24 16:20) Ct Ab Pel Wo Con-No Oral Or Iv (12/19/24 16:20) Saline Lock (12/19/24 16:22) Insert Joshi Catheter QSHIFT (12/19/24 17:59) Admit (12/19/24 20:02) Code Status (12/19/24 20:02) Vital Signs .PER UNIT PROTOCOL (12/19/24 20:02) Review Orders With Adm. (12/19/24 20:02) Encourage Activity As Tolerate (12/19/24 20:02) Sodium Chloride Lock (Saline Lock Ns) (12/19/24 22:00) Docusate Sodium Capsule (Colace Capsule) (12/19/24 20:15) Acetaminophen Tablet (Tylenol Tablet) (12/19/24 20:15) Notify Md Of Changes From Base (12/19/24 20:02) Advance Directive (12/19/24 20:02) Patient Condition (12/19/24 20:02) Allergies (12/19/24 20:02) Hydrocodone-Acet 5/325mg Tab ([place] 5/32 (12/19/24 20:15) Hydromorphone Injection (Dilaudid Inject (12/19/24 20:15) Ondansetron Hcl (Zofran) (12/19/24 20:15) Enoxaparin Sodium (Lovenox) (12/20/24 10:00) Ceftriaxone 1gm/50ml D5w (Rocephin) (12/20/24 10:00) Urine Bacterial Culture (12/19/24 20:02) Furosemide Injection (Lasix Injection) (12/19/24 22:00) Cardiac Diet-2gna,Lofat,Lochol (12/20/24 Breakfast) Albuterol Inhaler (Ventolin Hfa) (12/19/24 20:15) Ascorbic Acid Tablet (Vitamin C Tablet) (12/19/24 22:00) Aspirin Enteric Coated Tablet (Ecotrin E (12/20/24 10:00) Atorvastatin (Lipitor) (12/19/24 22:00) Clopidogrel Bisulfate (Plavix) (12/20/24 10:00) Duloxetine Hcl Capsule (Cymbalta Capsule (12/20/24 10:00) Multiple Vitamin Tablet (Mvi Tab) (12/20/24 10:00) Oxybutynin Chloride Tablet (Ditropan Tab (12/19/24 22:00) Pantoprazole Tablet (Protonix Tablet) (12/20/24 10:00) Polyethylene Glycol 17g Powder (Miralax (12/19/24 20:15) Ranolazine (Ranexa Er) (12/19/24 22:00) Spironolactone (Aldactone) (12/20/24 10:00) (Nf) Cholecalciferol (Vitamin D3) (12/19/24 22:00) (Nf) Fluoxetine Hcl (Pmdd) (Fluoxetine H (12/20/24 10:00) (Nf) Fluticasone-Salmeterol (Fluticasone (12/19/24 22:00) (Nf) Ipratropium-Albuterol (Ipratropium (12/19/24 20:15) (Nf) Metoprolol Succinate (Metoprolol Pleitez (12/20/24 10:00) (Nf) Phenazopyridine Hcl (Eq Urinary Blayne (12/19/24 22:00) Comprehensive Metabolic Panel (12/20/24 05:00) Comprehensive Metabolic Panel (12/21/24 05:00) Comprehensive Metabolic Panel (12/22/24 05:00) Comprehensive Metabolic Panel (12/23/24 05:00) Comprehensive Metabolic Panel (12/24/24 05:00) Complete Blood Count (12/20/24 05:00) Complete Blood Count (12/21/24 05:00) Complete Blood Count (12/22/24 05:00) Complete Blood Count (12/23/24 05:00) Complete Blood Count (12/24/24 05:00) Magnesium (12/20/24 05:00) Magnesium (12/21/24 05:00) Magnesium (12/22/24 05:00) Magnesium (12/23/24 05:00) Magnesium (12/24/24 05:00) Vital Signs Date Time Temp Pulse Resp B/P (MAP) Pulse Ox O2 Delivery O2 Flow Rate FiO2 12/19/24 20:00 63 12/19/24 18:44 124/59 12/19/24 18:31 80 14 124/59 (80) 99 12/19/24 17:00 70 12/19/24 16:37 99.2 80 14 114/54 (74) 97 99.2 12/19/24 16:37 80 14 97 Nasal Cannula 2.0 12/19/24 16:16 98.1 77 16 173/83 (113) 98 98.1 12/19/24 16:13 77 Laboratory Tests Test 12/19/24 16:33 Lactic Acid Level 1.4 mmol/L (0.4-2.0) White Blood Count 9.5 10^3/uL (4.4-10.8) Medications Medications Dose Ordered Sig/Asha Route Start Time Stop Time Status Last Admin Dose Admin Furosemide 40 mg ONCE ONCE IV 12/19/24 18:00 12/19/24 18:01 DC 12/19/24 18:44 Levofloxacin 500 mg ONCE ONCE PO 12/19/24 18:45 12/19/24 18:46 DC 12/19/24 18:40 Results Labs Test 12/19/24 19:30 12/19/24 16:52 12/19/24 16:33 Range/Units Troponin I High Sensitivity 34 </=34 ng/L Urine Color [place] H Yellow Urine Clarity Turbid H Clear Urine pH 5.5 5.0-9.0 Urine Specific [place] 1.033 1.001-1.035 Urine Protein 1+ H Negative Urine Ketones Negative Negative Urine Blood Negative Negative /uL Urine Nitrite Negative Negative Urine Bilirubin Negative Negative Urine Urobilinogen 2 H Negative mg/dL Urine Leukocyte Esterase 1+ Negative /uL Urine RBC 6 0 - 4 /hpf Urine Microscopic WBC 12 H 0-5 /HPF Urine Squamous Epithelial Cells Few <5 /hpf Urine Bacteria Few H None Seen /hpf Urine Hyaline Casts Few 0 - 2 /lpf Urine Mucus Few None Seen Urine Glucose Normal Normal mg/dL White Blood Count 9.5 4.4-10.8 10^3/uL Red Blood Count 4.34 4.0-5.20 10^6/uL Hemoglobin 13.1 12.2-16.2 g/dL Hematocrit 39.1 36.0-46.0 % Mean Corpuscular Volume 90.2 80.0-100.0 fL Mean Corpuscular Hemoglobin 30.3 28.0-32.0 pg Mean Corpuscular Hemoglobin Concent 33.6 32.0-36.0 g/dL Red Cell Distribution Width 17.2 H 11.8-14.3 % Platelet Count 313 140-450 10^3/uL Mean Platelet Volume 7.5 6.9-10.8 fL Neutrophils (%) (Auto) 72.2 37.0-80.0 % Lymphocytes (%) (Auto) 15.3 10.0-50.0 % Monocytes (%) (Auto) 9.9 0.0-12.0 % Eosinophils (%) (Auto) 2.0 0.0-7.0 % Basophils (%) (Auto) 0.6 0.0-2.0 % Neutrophils # (Auto) 6.9 1.6-8.6 10 ^3/uL Lymphocytes # (Auto) 1.5 0.4-5.4 10 ^3/uL Monocytes # (Auto) 0.9 0-1.3 10 ^3/uL Eosinophils # (Auto) 0.2 0-0.8 10 ^3/uL Basophils # (Auto) 0.1 0-0.2 10 ^3/uL Nucleated Red Blood Cells 0.0 % Sodium Level 142 136-145 mmol/L Potassium Level 4.6 3.5-5.1 mmol/L Chloride Level 107 98-107 mmol/L Carbon Dioxide Level 28 20-31 mmol/L Anion Gap 7 5-15 Blood Urea Nitrogen 18 9-23 mg/dL Creatinine 0.95 0.550-1.02 mg/dL Glomerular Filtration Rate Calc 61 >90 mL/min BUN/Creatinine Ratio 18.9 10.0-20.0 Serum Glucose 109 H 74-106 mg/dL Lactic Acid Level 1.4 0.4-2.0 mmol/L Calcium Level 9.4 8.7-10.4 mg/dL Total Bilirubin 0.6 0.2-1.0 mg/dL Aspartate Amino Transferase (AST) 18 13-40 U/L Alanine Aminotransferase (ALT) 10 7-40 U/L Alkaline Phosphatase 67 46-116 U/L B-Type Natriuretic Peptide 999.78 0-100 pg/mL Total Protein 6.3 5.7-8.2 g/dL Albumin 4.4 3.2-4.8 g/dL Lipase 27 12-53 U/L Primary Diagnosis chest pain r/o acs Acute CHF exacerbation UTI Plan iv lasix 40mg bid check echo daily weight strict in/o fluid restriction K> 4, Mg > 2 levaquin for uti check urine culture cardiac diet resume home meds full code lovenox for dvt ppx ppi for gi ppx Plan discussed with: Patient Problems List: (1) Chest pain (2) UTI (urinary tract infection) Status: Acute Date of Service: Dec 19, 2024 Billing Provider: MONROE ARNETT MD Common Visit Codes: [id number] INP/OBS CARE (MOD) MONROE ARNETT MD Dec 19, 2024 20:30
[2024-12-19 20:40] VITALS: BP 124/59; PULSE 64; RESP 18; TEMP 99.2; O2SAT 97
[2024-12-19] MEDS: HYDROmorphone HCL 2 MG/ML VL/or syr IV PRN (20:56)
[2024-12-19] MEDS: ONDANSETRON HCL 4 MG/2 ML VIAL IV PRN (21:02)
[2024-12-19 21:42] VITALS: PULSE 66; RESP 14; O2SAT 97
[2024-12-19 21:59] VITALS: PULSE 71; RESP 18; O2SAT 95
[2024-12-19] MEDS: ALBUTEROL SULF 2.5 MG/0.5ML(0.5%) NEB SOLN NEB SCH (21:59)
[2024-12-19] MEDS: IPRATROPIUM BROM 0.5 MG/2.5ML INH SOL NEB SCH (21:59)
[2024-12-19] MEDS: SODIUM CHLOR 0.9% PF (SALINE LOCK) 10ML VIAL/SYR IV SCH (22:00)
[2024-12-19] MEDS: ASCORBIC ACID 500 MG TAB PO SCH (22:00)
[2024-12-19] MEDS: OXYBUTYNIN CHL 5 MG TAB PO SCH (22:00)
[2024-12-19] MEDS: ATORVASTATIN 20 MG TAB PO SCH (22:00)
[2024-12-19] MEDS: FUROSEMIDE 40 MG/4 ML VIAL IV SCH (22:00)
[2024-12-19] MEDS: RANOLAZINE ER 500 MG TAB PO SCH (22:00)
[2024-12-19] MEDS ORDERED: PHENAZOPYRIDINE HCL 99.5 MG PO SCH (22:00)
[2024-12-19] MEDS ORDERED: FLUTICASONE SALMETEROL INH SCH (22:00)
[2024-12-19] MEDS ORDERED: [UNRECOGNIZED DRUG - OTHER] INH SCH (22:00)
[2024-12-19] MEDS: CHOLECALCIFEROL (VITD3) 1,000UNIT=25mCg TAB PO SCH (22:00)
[2024-12-19 22:05] VITALS: PULSE 75; RESP 18; O2SAT 98
[2024-12-19 22:56] VITALS: BP 137/92; PULSE 62; RESP 18; TEMP 98; O2SAT 97
[2024-12-19 23:20] VITALS: BP 137/92; PULSE 62; RESP 18; TEMP 98; O2SAT 97
[2024-12-19] MEDS ORDERED: PHENAZOPYRIDINE HCL 100 MG TAB PO PRN (23:45)
[2024-12-20] VITALS (18 sets, daily range): BP systolic 102–130; BP diastolic 42–98; PULSE 61–80; RESP 17–20; TEMP 96.6–98.3; O2SAT 91–100
[2024-12-20 07:55] LABS: Hematocrit 38.9 % (36.0-46.0); Hemoglobin 13.2 g/dL (12.2-16.2); Mean Corpuscular Hemoglobin 30.3 pg (28.0-32.0); Mean Corpuscular Volume 89.3 fL (80.0-100.0); Nucleated Red Blood Cells % 0.2 %
[2024-12-20 08:12] LABS: Albumin 4.6 g/dL (3.2-4.8); Alkaline Phosphatase 68 U/L (46-116); Anion Gap 11 (5-15); BUN/Creatinine Ratio 12.9 (10.0-20.0); Blood Urea Nitrogen 17 mg/dL (9-23); Carbon Dioxide 28 mmol/L (20-31); Chloride 102 mmol/L (98-107); Glucose 94 mg/dL (74-106); Magnesium 2.2 mg/dL (1.6-2.6); Potassium 4.0 mmol/L (3.5-5.1); Sodium 141 mmol/L (136-145); Total Protein 6.7 g/dL (5.7-8.2)
[2024-12-20 08:13] LABS: Bilirubin, Total 0.6 mg/dL (0.2-1.0)
[2024-12-20 08:15] LABS: Alanine Aminotransferase < 9 U/L (7-40); Calcium 10.5 mg/dL (8.7-10.4)
[2024-12-20] MEDS: BUDESONIDE (INHALATION) 0.5 MG/2 ML NEB NEB SCH (09:49)
[2024-12-20] MEDS ORDERED: PATIENTS OWN MEDICATION (Fluoxetine HCl (Pmdd) (Fluoxetine HCl) 20 MG) PO SCH (10:00)
[2024-12-20] MEDS ORDERED: cefTRIAXone 1GM/50ML D5W 50 ML IV SCH (10:00)
[2024-12-20] MEDS: MULTIPLE VITAMIN TAB PO SCH (10:06)
[2024-12-20] MEDS: PANTOPRAZOLE 40 MG TAB PO SCH (10:06)
[2024-12-20] MEDS: CLOPIDOGREL BISULFATE 75 MG TAB PO SCH (10:06)
[2024-12-20] MEDS: SPIRONOLACTONE 25 MG TAB PO SCH (10:08)
[2024-12-20] MEDS: METOPROLOL SUCCINATE XL 50 MG TAB PO SCH (10:08)
[2024-12-20] MEDS: ASPirin-EC 81 mg tab PO SCH (10:08)
[2024-12-20] MEDS: ENOXAPARIN SOD 40 MG/0.4 ML SYRINGE SC SCH (10:09)
[2024-12-20] MEDS: HYDROmorphone HCL 2 MG/ML VL/or syr IV PRN (15:36)
--- NOTE | 2024-12-20 17:35 | DVHPN2 ---
Subjective Feels better but she is asking for more pain medications/Dilaudid Reviewed: Care Plan, H&P, Labs, Medications, Previous Orders, Radiology Changes from previous H/P or p: No Changes Objective Vitals Vital Signs Date Time Temp Pulse Resp B/P (MAP) Pulse Ox O2 Delivery O2 Flow Rate FiO2 12/20/24 14:11 65 18 100 12/20/24 14:05 Nasal Cannula* 2 28 12/20/24 12:45 98.3 108/51 (70) 98.3 Intake/Output Intake and Output 12/20/24 07:00 Intake Total 250 ml Output Total 2300 ml Balance -2050 ml Intake Oral 250 ml Output Urine Total 2300 ml General Appearance: Alert, Oriented X3, Cooperative, No acute distress HEENT: Atraumatic Lungs: Other (Few crackles and wheezes bilateral lungs) Cardiovascular: Regular rate Abdomen: Normal bowel sounds, Soft Extremities: Other (Some bilateral lower extremity edema) Medications Current Medications Medications Dose Ordered Sig/Asha Route Start Time Stop Time Status Last Admin Dose Admin Sodium Chloride 10 ml Q8HR IV 12/19/24 22:00 12/20/24 14:35 10 ML Docusate Sodium 100 mg BIDPRN PRN PO 12/19/24 20:15 Acetaminophen 650 mg Q6HP PRN PO 12/19/24 20:15 Ondansetron HCl 4 mg Q4HP PRN IV 12/19/24 20:15 12/20/24 10:10 4 MG Enoxaparin Sodium 40 mg DAILY SC 12/20/24 10:00 12/20/24 10:09 40 MG Furosemide 40 mg BID IV 12/19/24 22:00 12/20/24 10:10 40 MG Ascorbic Acid 500 mg BID PO 12/19/24 22:00 12/20/24 10:08 500 MG Aspirin 81 mg DAILY PO 12/20/24 10:00 12/20/24 10:08 81 MG Atorvastatin Calcium 40 mg HS PO 12/19/24 22:00 12/19/24 22:00 40 MG Clopidogrel Bisulfate 75 mg DAILY PO 12/20/24 10:00 12/20/24 10:06 75 MG Duloxetine HCl 30 mg DAILY PO 12/20/24 10:00 12/20/24 10:06 30 MG Multivitamins 1 tab DAILY PO 12/20/24 10:00 12/20/24 10:06 1 TAB Oxybutynin Chloride 5 mg Q8HR PO 12/19/24 22:00 12/20/24 14:35 5 MG Pantoprazole Sodium 40 mg DAILY PO 12/20/24 10:00 12/20/24 10:06 40 MG Polyethylene Glycol 17 gm DAILY PRN PO 12/19/24 20:15 Ranolazine 500 mg BID PO 12/19/24 22:00 12/20/24 10:06 500 MG Spironolactone 25 mg DAILY PO 12/20/24 10:00 12/20/24 10:08 25 MG Cholecalciferol 2,000 unit BID PO 12/19/24 22:00 12/20/24 10:08 2,000 UNIT Metoprolol Succinate 25 mg DAILY PO 12/20/24 10:00 12/20/24 10:08 25 MG Levofloxacin/ Dextrose 100 ml @ 100 mls/hr DAILY IV 12/20/24 10:00 12/20/24 10:09 100 MLS/HR Albuterol 2.5 mg Q4HR NEB 12/19/24 22:00 12/20/24 14:05 2.5 MG Ipratropium [place] 0.5 mg Q4HR NEB 12/19/24 22:00 12/20/24 14:05 0.5 MG Fluoxetine HCl 20 mg DAILY PO 12/20/24 10:00 12/20/24 10:08 20 MG Budesonide 0.5 mg BID NEB 12/20/24 10:00 12/20/24 09:49 0.5 MG Phenazopyridine HCl 100 mg TID PRN PO 12/19/24 23:45 Hydromorphone HCl 0.5 mg Q6HP PRN IV 12/20/24 13:45 Hydromorphone HCl 1 mg Q6HP PRN IV 12/20/24 14:00 Laboratory Results Laboratory Tests 12/20/24 06:54 Chemistry Test 12/20/24 06:54 Albumin 4.6 g/dL (3.2-4.8) Calcium Level 10.5 mg/dL (8.7-10.4) H Magnesium Level 2.2 mg/dL (1.6-2.6) Total Protein 6.7 g/dL (5.7-8.2) LFT Test 12/20/24 06:54 Alanine Aminotransferase (ALT) < 9 U/L (7-40) Alkaline Phosphatase 68 U/L (46-116) Aspartate Amino Transferase (AST) 22 U/L (13-40) Total Bilirubin 0.6 mg/dL (0.2-1.0) Urinalysis Test 12/19/24 16:52 Urine Color Clever (Yellow) H Urine Clarity Turbid (Clear) H Urine pH 5.5 (5.0-9.0) Urine Specific [place] 1.033 (1.001-1.035) Urine Protein 1+ (Negative) H Urine Ketones Negative (Negative) Urine Blood Negative /uL (Negative) Urine Nitrite Negative (Negative) Urine Bilirubin Negative (Negative) Urine Urobilinogen 2 mg/dL (Negative) H Urine Leukocyte Esterase 1+ /uL (Negative) Urine RBC 6 /hpf (0 - 4) Urine Microscopic WBC 12 /HPF (0-5) H Urine Squamous Epithelial Cells Few /hpf (<5) Urine Bacteria Few /hpf (None Seen) H Urine Hyaline Casts Few /lpf (0 - 2) Urine Mucus Few (None Seen) Urine Glucose Normal mg/dL (Normal) Microbiology Microbiology Date/Time Source Procedure Growth Status 12/19/24 16:52 Voided Urine Urine Culture - Preliminary Resulted Assessment/Plan Assessment/Plan Acute on chronic heart failure with systolic dysfunction/HFrEF/ischemic cardiomyopathy Chest pains UTI Chronic pain syndrome COPD with mild exacerbation Coronary artery disease and history of CABG GERD Hypertension Dyslipidemia Gout Plan: Continue current plan of care Plan discussed with: Patient My Orders Orders - BEL BURNETT MD Procedure Category Date Status Time Hydromorphone PHA 12/20/24 In Process Injection (Dilaudid 13:45 Hydromorphone PHA 12/20/24 In Process Injection (Dilaudid 14:00 Date of Service: Dec 20, 2024 Billing Provider: BEL BURNETT MD Common Visit Codes: [id number] INP/OBS CARE(HIGH) BEL BURNETT MD Dec 20, 2024 17:35
[2024-12-20] MEDS ORDERED: ALBUTEROL SULF 2.5 MG/0.5ML(0.5%) NEB SOLN NEB PRN (18:00)
[2024-12-20] MEDS: methylPREDNISolone SOD SUCC 40 MG/ML VL IV SCH (18:42)
[2024-12-20] MEDS: ALBUTEROL SULF 2.5 MG/0.5ML(0.5%) NEB SOLN NEB SCH (18:50)
[2024-12-20] MEDS: IPRATROPIUM BROM 0.5 MG/2.5ML INH SOL NEB SCH (18:50)
[2024-12-21] VITALS (18 sets, daily range): BP systolic 106–141; BP diastolic 52–67; PULSE 62–93; RESP 14–20; TEMP 95.4–98.7; O2SAT 91–100
[2024-12-21 09:05] LABS: Hematocrit 36.9 % (36.0-46.0); Hemoglobin 12.5 g/dL (12.2-16.2); Mean Corpuscular Hemoglobin 30.4 pg (28.0-32.0); Mean Corpuscular Volume 89.8 fL (80.0-100.0); Nucleated Red Blood Cells % 0.1 %
[2024-12-21 09:23] LABS: Albumin 4.4 g/dL (3.2-4.8); Alkaline Phosphatase 61 U/L (46-116); Anion Gap 10 (5-15); BUN/Creatinine Ratio 16.9 (10.0-20.0); Bilirubin, Total 0.5 mg/dL (0.2-1.0); Calcium 10.4 mg/dL (8.7-10.4); Carbon Dioxide 27 mmol/L (20-31); Chloride 99 mmol/L (98-107); Magnesium 2.0 mg/dL (1.6-2.6); Potassium 4.5 mmol/L (3.5-5.1); Total Protein 6.2 g/dL (5.7-8.2)
[2024-12-21 09:24] LABS: Alanine Aminotransferase < 9 U/L (7-40); Blood Urea Nitrogen 28 mg/dL (9-23); Glucose 225 mg/dL (74-106); Sodium 136 mmol/L (136-145)
[2024-12-21] MEDS: HYDROmorphone HCL 2 MG/ML VL/or syr IV PRN (09:47)
[2024-12-21] MEDS: ACETAMINOPHEN 325 MG TAB PO PRN (23:32)
--- NOTE | 2024-12-21 23:42 | DVHPN2 ---
Subjective The patient seen and examined at bedside. Complain of severe pain. Requiring oxycodone for breakthrough. The patient already on IV Dilaudid. Reviewed: Care Plan, H&P, Labs, Medications, Previous Orders, Radiology Changes from previous H/P or p: No Changes Objective Vitals Vital Signs Date Time Temp Pulse Resp B/P (MAP) Pulse Ox O2 Delivery O2 Flow Rate FiO2 12/21/24 21:47 78 18 141/53 12/21/24 21:00 98.3 95 98.3 12/21/24 19:10 Nasal Cannula 2.0 12/21/24 19:10 28 Intake/Output Intake and Output 12/21/24 07:00 Intake Total 1622 ml Output Total 1550 ml Balance 72 ml Intake Oral 1522 ml IV Total 100 ml Output Urine Total 1550 ml General Appearance: Alert, Oriented X3, Cooperative, No acute distress HEENT: Atraumatic Lungs: Other (Few crackles and wheezes bilateral lungs) Cardiovascular: Regular rate Abdomen: Normal bowel sounds, Soft Extremities: Other (Some bilateral lower extremity edema) Medications Current Medications Medications Dose Ordered Sig/Asha Route Start Time Stop Time Status Last Admin Dose Admin Sodium Chloride 10 ml Q8HR IV 12/19/24 22:00 12/21/24 21:23 10 ML Docusate Sodium 100 mg BIDPRN PRN PO 12/19/24 20:15 Acetaminophen 650 mg Q6HP PRN PO 12/19/24 20:15 12/21/24 23:32 650 MG Ondansetron HCl 4 mg Q4HP PRN IV 12/19/24 20:15 12/21/24 21:47 4 MG Enoxaparin Sodium 40 mg DAILY SC 12/20/24 10:00 12/21/24 09:49 40 MG Furosemide 40 mg BID IV 12/19/24 22:00 12/21/24 21:23 40 MG Ascorbic Acid 500 mg BID PO 12/19/24 22:00 12/21/24 21:24 500 MG Aspirin 81 mg DAILY PO 12/20/24 10:00 12/21/24 09:48 81 MG Atorvastatin Calcium 40 mg HS PO 12/19/24 22:00 12/21/24 21:25 40 MG Clopidogrel Bisulfate 75 mg DAILY PO 12/20/24 10:00 12/21/24 09:49 75 MG Duloxetine HCl 30 mg DAILY PO 12/20/24 10:00 12/21/24 09:48 30 MG Multivitamins 1 tab DAILY PO 12/20/24 10:00 12/21/24 09:50 1 TAB Oxybutynin Chloride 5 mg Q8HR PO 12/19/24 22:00 12/21/24 21:25 5 MG Pantoprazole Sodium 40 mg DAILY PO 12/20/24 10:00 12/21/24 09:49 40 MG Polyethylene Glycol 17 gm DAILY PRN PO 12/19/24 20:15 Ranolazine 500 mg BID PO 12/19/24 22:00 12/21/24 21:25 500 MG Spironolactone 25 mg DAILY PO 12/20/24 10:00 12/21/24 09:49 25 MG Cholecalciferol 2,000 unit BID PO 12/19/24 22:00 12/21/24 21:25 2,000 UNIT Metoprolol Succinate 25 mg DAILY PO 12/20/24 10:00 12/21/24 09:49 25 MG Levofloxacin/ Dextrose 100 ml @ 100 mls/hr DAILY IV 12/20/24 10:00 12/21/24 09:58 100 MLS/HR Fluoxetine HCl 20 mg DAILY PO 12/20/24 10:00 12/21/24 09:48 20 MG Budesonide 0.5 mg BID NEB 12/20/24 10:00 12/21/24 19:16 0.5 MG Phenazopyridine HCl 100 mg TID PRN PO 12/19/24 23:45 Hydromorphone HCl 1 mg Q6HP PRN IV 12/20/24 14:00 12/21/24 21:47 1 MG Albuterol 2.5 mg Q6HR NEB 12/20/24 18:00 12/21/24 19:15 2.5 MG Albuterol 2.5 mg Q3HPRN PRN NEB 12/20/24 18:00 Ipratropium [place] 0.5 mg Q6HR NEB 12/20/24 18:00 12/21/24 19:15 0.5 MG Methylprednisolone Sodium Succinate 40 mg Q12H IV 12/20/24 18:00 12/21/24 17:38 40 MG Oxycodone HCl 15 mg Q8HPRN PRN PO 12/21/24 14:00 12/21/24 17:32 15 MG Laboratory Results Laboratory Tests 12/21/24 08:39 Chemistry Test 12/21/24 08:39 Albumin 4.4 g/dL (3.2-4.8) Calcium Level 10.4 mg/dL (8.7-10.4) Magnesium Level 2.0 mg/dL (1.6-2.6) Total Protein 6.2 g/dL (5.7-8.2) LFT Test 12/21/24 08:39 Alanine Aminotransferase (ALT) < 9 U/L (7-40) Alkaline Phosphatase 61 U/L (46-116) Aspartate Amino Transferase (AST) 15 U/L (13-40) Total Bilirubin 0.5 mg/dL (0.2-1.0) Urinalysis Test 12/19/24 16:52 Urine Color [place] (Yellow) H Urine Clarity Turbid (Clear) H Urine pH 5.5 (5.0-9.0) Urine Specific [place] 1.033 (1.001-1.035) Urine Protein 1+ (Negative) H Urine Ketones Negative (Negative) Urine Blood Negative /uL (Negative) Urine Nitrite Negative (Negative) Urine Bilirubin Negative (Negative) Urine Urobilinogen 2 mg/dL (Negative) H Urine Leukocyte Esterase 1+ /uL (Negative) Urine RBC 6 /hpf (0 - 4) Urine Microscopic WBC 12 /HPF (0-5) H Urine Squamous Epithelial Cells Few /hpf (<5) Urine Bacteria Few /hpf (None Seen) H Urine Hyaline Casts Few /lpf (0 - 2) Urine Mucus Few (None Seen) Urine Glucose Normal mg/dL (Normal) Microbiology Microbiology Date/Time Source Procedure Growth Status 12/21/24 05:20 Nose MRSA Screen - Final Complete 12/19/24 16:52 Voided Urine Urine Culture - Preliminary Resulted Labs and/or images reviewed: Labs reviewed by me Assessment/Plan Assessment/Plan chest pain r/o acs Acute CHF exacerbation UTI Chronic pain syndrome Continuing current management. We will add oxycodone for breakthrough pain. Continuing with IV Dilaudid. We will follow up with echo. Keep potassium greater than four and magnesium greater than two Continuing IV Levaquin for UTI. Continuing with IV Lasix Discharge planning This medical document was created using an electronic medical record system with [employer] computerized dictation system. Although this document has been carefully reviewed, there may still be some phonetic and typographical errors. These areas are purely typographical due to imperfections of the software programs, and do not reflect any compromise in the patient's medical care. Plan discussed with: Patient My Orders Orders - LUIS REICH MD Procedure Category Date Status Time Oxycodone Immediate PHA 12/21/24 In Process Rel Tablet 14:00 Date of Service: Dec 21, 2024 Billing Provider: LUIS REICH MD Common Visit Codes: [id number] INP/OBS CARE(HIGH) LUIS REICH MD Dec 21, 2024 23:42
[2024-12-22] VITALS (15 sets, daily range): BP systolic 100–154; BP diastolic 55–69; PULSE 52–94; RESP 16–20; TEMP 97.7–98.4; O2SAT 94–100
[2024-12-22 11:28] LABS: Hematocrit 38.2 % (36.0-46.0); Hemoglobin 12.6 g/dL (12.2-16.2); Mean Corpuscular Hemoglobin 29.7 pg (28.0-32.0); Mean Corpuscular Volume 90.1 fL (80.0-100.0)
--- NOTE | 2024-12-22 11:37 | DVHPN2 ---
Subjective The patient seen and examined at bedside. Complain of severe pain. the patient fall at night and now complains of right ankle, hip pain. Reviewed: Care Plan, H&P, Labs, Medications, Previous Orders, Radiology Changes from previous H/P or p: No Changes Objective Vitals Vital Signs Date Time Temp Pulse Resp B/P (MAP) Pulse Ox O2 Delivery O2 Flow Rate FiO2 12/22/24 11:36 77 16 96 12/22/24 11:30 Nasal Cannula 2.0 12/22/24 11:30 28 12/22/24 10:11 130/80 12/22/24 05:00 97.9 97.9 Intake/Output Intake and Output 12/22/24 07:00 Intake Total 2540 ml Output Total 1450 ml Balance 1090 ml Intake Oral 2540 ml Output Urine Total 1450 ml General Appearance: Alert, Cooperative, No acute distress HEENT: Atraumatic Lungs: Other (Few crackles and wheezes bilateral lungs) Cardiovascular: Regular rate Abdomen: Normal bowel sounds, Soft Extremities: Other (Some bilateral lower extremity edema) Medications Current Medications Medications Dose Ordered Sig/Asha Route Start Time Stop Time Status Last Admin Dose Admin Sodium Chloride 10 ml Q8HR IV 12/19/24 22:00 12/22/24 06:05 10 ML Docusate Sodium 100 mg BIDPRN PRN PO 12/19/24 20:15 Acetaminophen 650 mg Q6HP PRN PO 12/19/24 20:15 12/21/24 23:32 650 MG Ondansetron HCl 4 mg Q4HP PRN IV 12/19/24 20:15 12/22/24 10:28 4 MG Enoxaparin Sodium 40 mg DAILY SC 12/20/24 10:00 12/22/24 10:07 40 MG Furosemide 40 mg BID IV 12/19/24 22:00 12/22/24 10:11 40 MG Ascorbic Acid 500 mg BID PO 12/19/24 22:00 12/22/24 10:09 500 MG Aspirin 81 mg DAILY PO 12/20/24 10:00 12/22/24 10:08 81 MG Atorvastatin Calcium 40 mg HS PO 12/19/24 22:00 12/21/24 21:25 40 MG Clopidogrel Bisulfate 75 mg DAILY PO 12/20/24 10:00 12/22/24 10:08 75 MG Duloxetine HCl 30 mg DAILY PO 12/20/24 10:00 12/22/24 10:08 30 MG Multivitamins 1 tab DAILY PO 12/20/24 10:00 12/22/24 10:08 1 TAB Oxybutynin Chloride 5 mg Q8HR PO 12/19/24 22:00 12/21/24 21:25 5 MG Pantoprazole Sodium 40 mg DAILY PO 12/20/24 10:00 12/22/24 10:09 40 MG Polyethylene Glycol 17 gm DAILY PRN PO 12/19/24 20:15 Ranolazine 500 mg BID PO 12/19/24 22:00 12/22/24 10:08 500 MG Spironolactone 25 mg DAILY PO 12/20/24 10:00 12/22/24 10:10 25 MG Cholecalciferol 2,000 unit BID PO 12/19/24 22:00 12/22/24 10:09 2,000 UNIT Metoprolol Succinate 25 mg DAILY PO 12/20/24 10:00 12/22/24 10:11 25 MG Levofloxacin/ Dextrose 100 ml @ 100 mls/hr DAILY IV 12/20/24 10:00 12/22/24 10:23 100 MLS/HR Fluoxetine HCl 20 mg DAILY PO 12/20/24 10:00 12/22/24 10:08 20 MG Budesonide 0.5 mg BID NEB 12/20/24 10:00 12/22/24 07:17 0.5 MG Phenazopyridine HCl 100 mg TID PRN PO 12/19/24 23:45 Albuterol 2.5 mg Q6HR NEB 12/20/24 18:00 12/22/24 11:29 2.5 MG Albuterol 2.5 mg Q3HPRN PRN NEB 12/20/24 18:00 Ipratropium [place] 0.5 mg Q6HR NEB 12/20/24 18:00 12/22/24 11:30 0.5 MG Methylprednisolone Sodium Succinate 40 mg Q12H IV 12/20/24 18:00 12/22/24 06:05 40 MG Hydromorphone HCl 0.5 mg Q6HP PRN IV 12/22/24 11:15 UNV Laboratory Results Laboratory Tests 12/22/24 10:27 Chemistry Test 12/22/24 10:27 Albumin Pending Calcium Level Pending Magnesium Level Pending Total Protein Pending LFT Test 12/22/24 10:27 Alanine Aminotransferase (ALT) Pending Alkaline Phosphatase Pending Aspartate Amino Transferase (AST) Pending Total Bilirubin Pending Urinalysis Test 12/19/24 16:52 Urine Color [place] (Yellow) H Urine Clarity Turbid (Clear) H Urine pH 5.5 (5.0-9.0) Urine Specific [place] 1.033 (1.001-1.035) Urine Protein 1+ (Negative) H Urine Ketones Negative (Negative) Urine Blood Negative /uL (Negative) Urine Nitrite Negative (Negative) Urine Bilirubin Negative (Negative) Urine Urobilinogen 2 mg/dL (Negative) H Urine Leukocyte Esterase 1+ /uL (Negative) Urine RBC 6 /hpf (0 - 4) Urine Microscopic WBC 12 /HPF (0-5) H Urine Squamous Epithelial Cells Few /hpf (<5) Urine Bacteria Few /hpf (None Seen) H Urine Hyaline Casts Few /lpf (0 - 2) Urine Mucus Few (None Seen) Urine Glucose Normal mg/dL (Normal) Microbiology Microbiology Date/Time Source Procedure Growth Status 12/21/24 05:20 Nose MRSA Screen - Final Complete 12/19/24 16:52 Voided Urine Urine Culture - Final Complete Labs and/or images reviewed: Labs reviewed by me Assessment/Plan Assessment/Plan chest pain r/o acs Acute CHF exacerbation UTI Chronic pain syndrome s/p mechanical fall Continuing current management. We will follow up with echo. Keep potassium greater than four and magnesium greater than two Continuing IV Levaquin for UTI. Continuing with IV Lasix I will dc oxycodone. I will cut dilaudid down to 0.5mg IV q6hPRN I will order XRay of right ankle, hip and CT head r/o CVA or bleeding. Discharge planning This medical document was created using an electronic medical record system with [employer] computerized dictation system. Although this document has been carefully reviewed, there may still be some phonetic and typographical errors. These areas are purely typographical due to imperfections of the software programs, and do not reflect any compromise in the patient's medical care. Plan discussed with: Patient, Other (RN) My Orders Orders - LUIS REICH MD Procedure Category Date Status Time Hydromorphone PHA 12/22/24 Logged Injection (Dilaudid 11:[address] 12/22/24 Logged 11:04 R Hip Complete Xray XY 12/22/24 Logged 11:04 R Shoulder 2+ View XY 12/22/24 Logged Xray 11:04 R Ankle 2 View Xray XY 12/22/24 Logged 11:04 Sodium Chloride 0.9% PHA 12/22/24 Logged 11:15 Date of Service: Dec 22, 2024 Billing Provider: LUIS REICH MD Common Visit Codes: [id number] INP/OBS CARE(HIGH) LUIS REICH MD Dec 22, 2024 11:37
[2024-12-22 11:44] LABS: Albumin 4.7 g/dL (3.2-4.8); Alkaline Phosphatase 60 U/L (46-116); Anion Gap 13 (5-15); BUN/Creatinine Ratio 17.7 (10.0-20.0); Carbon Dioxide 27 mmol/L (20-31); Chloride 99 mmol/L (98-107); Magnesium 2.4 mg/dL (1.6-2.6); Potassium 4.3 mmol/L (3.5-5.1); Sodium 139 mmol/L (136-145); Total Protein 6.8 g/dL (5.7-8.2)
[2024-12-22 11:45] LABS: Alanine Aminotransferase 9 U/L (7-40); Bilirubin, Total 0.4 mg/dL (0.2-1.0); Blood Urea Nitrogen 37 mg/dL (9-23); Calcium 10.7 mg/dL (8.7-10.4); Glucose 120 mg/dL (74-106)
--- NOTE | 2024-12-22 12:42 | DVH ---
CT HEAD WITHOUT CONTRAST INDICATION: Fall EXAM DATE: 12/22/2024 12:12 PM COMPARISON: CT HEAD WITHOUT CONTRAST on DOS: 05/25/24, CT HEAD WITHOUT CONTRAST on DOS: 02/17/24, HEAD WITHOUT CONTRAST on DOS: 04/08/22 RADIATION DOSE: CTDIvol: 56 mGy, DLP: 1000 mGy*cm PROCEDURE: CT scans of the head were obtained from the vertex to the skull base. Sagittal and coronal reconstructions were provided. All CT scans at this medical facility are performed using dose modulation techniques as appropriate t o a performed exam including the following: Automated exposure control was utilized; adjustment of th e MA and/or KV according to patient size; and use of iterative reconstruction technique. 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 There is sulcal and ventricular prominence. The brain otherwise shows normal morphology and obrien-white matter differentia tion, without intracranial hemorrhage, extra-axial fluid collection, mass effect or acute large vesse l infarct. The ventricles are normal in size. The basal cisterns are patent. The skull and visible fa cial bones are intact. The paranasal sinuses, mastoid air cells and middle ear cavities are well-aera nevaeh. The soft tissues of the scalp are unremarkable. 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 No acute intracranial abnormality.
[2024-12-22] MEDS: SODIUM CHLORIDE 0.9% 500 ML IV ONE (12:50)
[2024-12-22 13:02] LABS: Total Cells Counted 100.0 (100)
--- NOTE | 2024-12-22 13:06 | DVH ---
EXAM: XY R SHOULDER 2+ VIEW XRAY CLINICAL INDICATION: Fall TECHNIQUE: XY R SHOULDER 2+ VIEW XRAY Comparison: XY R SHOULDER 2+ VIEW XRAY on DOS: 10/30/23 FINDINGS/IMPRESSION: There is no evidence of acute fracture or dislocation. The visualized joint space is well maintained. The alignment is anatomical. There is no radiopaque foreign body.
--- NOTE | 2024-12-22 13:09 | DVH ---
INDICATION: fall TECHNIQUE: Single AP view of the pelvis was obtained. COMPARISON: None FINDINGS: Vague lucency involving right femoral neck . CT suggested. IMPRESSION: Vague lucency involving right femoral neck . CT suggested.
--- NOTE | 2024-12-22 13:10 | DVH ---
EXAM: XY R ANKLE 2 VIEW XRAY CLINICAL INDICATION: Fall TECHNIQUE: XY R ANKLE 2 VIEW XRAY Comparison: None FINDINGS/IMPRESSION: There is no evidence of acute fracture or dislocation. The visualized joint space is well maintained. The alignment is anatomical. There is no radiopaque foreign body.
--- NOTE | 2024-12-22 16:57 | DVH ---
Indication: Fall Technique: CT axial images of the right hip are obtained without contrast. Coronal and sagittal refor mats were obtained. Radiation Dose Information: CTDI volume is 11.5 mGy. Dose-length product is 338.09 mGy*cm Comparison: None FINDINGS: There are moderate degenerative changes right hip. Moderate right sacroiliac degenerative joint disea se. No acute fracture. Atherosclerotic disease. No inguinal lymphadenopathy. IMPRESSION: Moderate degenerative changes right hip.
[2024-12-23] VITALS (16 sets, daily range): BP systolic 100–121; BP diastolic 57–68; PULSE 62–78; RESP 14–18; TEMP 97.7–98.3; O2SAT 92–100
[2024-12-23 08:26] LABS: Hematocrit 38.4 % (36.0-46.0); Hemoglobin 12.7 g/dL (12.2-16.2); Mean Corpuscular Hemoglobin 29.9 pg (28.0-32.0); Mean Corpuscular Volume 90.0 fL (80.0-100.0); Nucleated Red Blood Cells % 0.0 %
[2024-12-23 08:41] LABS: Albumin 4.6 g/dL (3.2-4.8); Alkaline Phosphatase 57 U/L (46-116); Anion Gap 10 (5-15); BUN/Creatinine Ratio 23.6 (10.0-20.0); Carbon Dioxide 29 mmol/L (20-31); Chloride 101 mmol/L (98-107); Magnesium 2.3 mg/dL (1.6-2.6); Potassium 3.9 mmol/L (3.5-5.1); Sodium 140 mmol/L (136-145); Total Protein 6.5 g/dL (5.7-8.2)
[2024-12-23 08:42] LABS: Bilirubin, Total 0.5 mg/dL (0.2-1.0)
[2024-12-23 08:44] LABS: Alanine Aminotransferase 9 U/L (7-40); Blood Urea Nitrogen 41 mg/dL (9-23); Calcium 10.5 mg/dL (8.7-10.4); Glucose 119 mg/dL (74-106)
[2024-12-23] MEDS: HYDROmorphone HCL 2 MG/ML VL/or syr IV PRN (10:42)
[2024-12-23] MEDS ORDERED: LEVO500T91 PO (11:51)
--- NOTE | 2024-12-23 22:09 | DVHDS2 ---
Discharge Summary Date of Admission Dec 19, 2024 at 20:02 Date of Discharge: Dec 23, 2024 Admitting Diagnosis chest pain r/o acs Acute CHF exacerbation UTI Chronic pain syndrome Labs/Diagnostic Data: Laboratory Results Test 12/23/24 07:37 12/22/24 10:27 12/19/24 19:30 12/19/24 16:52 White Blood Count 12.6 10^3/uL (4.4-10.8) Red Blood Count 4.26 10^6/uL (4.0-5.20) Hemoglobin 12.7 g/dL (12.2-16.2) Hematocrit 38.4 % (36.0-46.0) Mean Corpuscular Volume 90.0 fL (80.0-100.0) Mean Corpuscular Hemoglobin 29.9 pg (28.0-32.0) Mean Corpuscular Hemoglobin Concent 33.2 g/dL (32.0-36.0) Red Cell Distribution Width 17.7 % (11.8-14.3) Platelet Count 260 10^3/uL (140-450) Mean Platelet Volume 8.2 fL (6.9-10.8) Neutrophils (%) (Auto) 87.1 % (37.0-80.0) Lymphocytes (%) (Auto) 7.1 % (10.0-50.0) Monocytes (%) (Auto) 5.8 % (0.0-12.0) Eosinophils (%) (Auto) 0.0 % (0.0-7.0) Basophils (%) (Auto) 0.0 % (0.0-2.0) Neutrophils # (Auto) 11.0 10 ^3/uL (1.6-8.6) Lymphocytes # (Auto) 0.9 10 ^3/uL (0.4-5.4) Monocytes # (Auto) 0.7 10 ^3/uL (0-1.3) Eosinophils # (Auto) 0 10 ^3/uL (0-0.8) Basophils # (Auto) 0 10 ^3/uL (0-0.2) Nucleated Red Blood Cells 0.0 % Sodium Level 140 mmol/L (136-145) Potassium Level 3.9 mmol/L (3.5-5.1) Chloride Level 101 mmol/L (98-107) Carbon Dioxide Level 29 mmol/L (20-31) Anion Gap 10 (5-15) Blood Urea Nitrogen 41 mg/dL (9-23) Creatinine 1.74 mg/dL (0.550-1.02) Glomerular Filtration Rate Calc 29 mL/min (>90) BUN/Creatinine Ratio 23.6 (10.0-20.0) Serum Glucose 119 mg/dL (74-106) Calcium Level 10.5 mg/dL (8.7-10.4) Magnesium Level 2.3 mg/dL (1.6-2.6) Total Bilirubin 0.5 mg/dL (0.2-1.0) Aspartate Amino Transferase (AST) 23 U/L (13-40) Alanine Aminotransferase (ALT) 9 U/L (7-40) Alkaline Phosphatase 57 U/L (46-116) Total Protein 6.5 g/dL (5.7-8.2) Albumin 4.6 g/dL (3.2-4.8) Differential Total Cells Counted 100.0 (100) Neutrophils % (Manual) 90 (37.0-80.0) Band Neutrophils % (Manual) 0 Lymphocytes % (Manual) 5 (10.0-50.0) Monocytes % (Manual) 5 (0-12) Eosinophils % (Manual) 0 (0-7) Basophils % (Manual) 0 (0.0-2.0) Metamyelocytes % (manual) 0 Myelocytes % (Manual) 0 Promyelocytes % (Manual) 0 Blast Cells % (Manual) 0 Reactive Lymphocytes 0 Platelet Estimate Adequate Troponin I High Sensitivity 34 ng/L (</=34) Urine Color [place] (Yellow) Urine Clarity Turbid (Clear) Urine pH 5.5 (5.0-9.0) Urine Specific [place] 1.033 (1.001-1.035) Urine Protein 1+ (Negative) Urine Ketones Negative (Negative) Urine Blood Negative /uL (Negative) Urine Nitrite Negative (Negative) Urine Bilirubin Negative (Negative) Urine Urobilinogen 2 mg/dL (Negative) Urine Leukocyte Esterase 1+ /uL (Negative) Urine RBC 6 /hpf (0 - 4) Urine Microscopic WBC 12 /HPF (0-5) Urine Squamous Epithelial Cells Few /hpf (<5) Urine Bacteria Few /hpf (None Seen) Urine Hyaline Casts Few /lpf (0 - 2) Urine Mucus Few (None Seen) Urine Glucose Normal mg/dL (Normal) Test 12/19/24 16:33 Lactic Acid Level 1.4 mmol/L (0.4-2.0) B-Type Natriuretic Peptide 999.78 pg/mL (0-100) Lipase 27 U/L (12-53) Other Laboratory Tests 12/23/24 07:37 Brief Hx & Hospital Course: This is a 79 years old female with multiple medical history including AICD placement, arrhythmia, acute kidney injury, chronic kidney disease stage 3, multiple urinary tract infection, hypertension, hyperlipidemia, ischemic cardiomyopathy, GERD, coronary artery disease status post CABG and PCI, gout came to emergency department for chest pain that radiates to the left shoulder. Patient also complained of bilateral lower extremity edema. The patient had multiple admission with the same complaint. The patient was admitted. The patient EKG showed no change. The patient's troponin level remained normal. The patient was put on IV Lasix, IV antibiotic with Levaquin. So far urine culture remained contaminant. Her bilateral edema improved. The patient had an episode of fall when she tried to get out of bed at night. The patient had Dilaudid and oxycodone. Is has been discontinuing to prevent her to be too drowsy and risks for fall. Imaging was done after her for including CT head, CT hip, right hip x-ray, right shoulder x-ray, right ankle x-ray. All of the remained negative for acute fracture. 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 No acute intracranial abnormality. Hip Xray showed: Vague lucency involving right femoral neck . CT suggested. CT right hip showed: There are moderate degenerative changes right hip. Moderate right sacroiliac degenerative joint disease. No acute fracture.Atherosclerotic disease. No inguinal lymphadenopathy. Right ankle and shoulder X-ray was done after her for and remained negative. CT right hip also negative for acute fracture. Today her leg edema improved. No fever no chill. No dysuria or polyuria. The patient ambulate. I am going to discharge her back to [facility]. Resume hospice. Advised her to follow up with PCP 1-2 weeks. Follow up with reliability specialist per schedule. Activity as tolerated. Diet per home diet. Recommend low-salt low-cholesterol diet. Physical exam: HEENT: Normocephalic atraumatic pupils equal react to light and accommodation. Extraocular muscles intact, conjunctiva pink, oropharynx moist, no thrush, no exudate. Lymphatic: No lymphadenopathy Cardiovascular exam: S1, S2 was heard. No murmurs, rubs, gallops Lung: Clear on auscultation bilaterally, no wheeze, rale, rhonchi. GI: Abdominal soft, nondistended, nontenderness, positive bowel sounds. Extremity: No crepitus, cyanosis, edema. Pedal pulses present bilateral. Full range of motion. Skin: Normal turgor, no rash. Psych: Alert, oriented x3. Neurology: No focal deficits, cranial nerve II to XII grossly intact. ADDEDUM: The patient refused to be discharge. Patient has stated she does not like to live in [facility]. She stated that she wanted to stay in the hospital instead. She stated that she will fill appeal with Medicare. I explained to her that she is medically stable. No further need of medical treatment. She can continue antibiotic as oral med as outpatient. This medical document was created using an electronic medical record system with [employer] direct computerized dictation system. Although this document has been carefully reviewed, there may still be some phonetic and typographical errors. These areas are purely typographical due to imperfections of the software programs, and do not reflect any compromise in the patient's medical care. Condition at Discharge: Stable Final Diagnosis/Problems List chest pain r/o acs Acute CHF exacerbation UTI Chronic pain syndrome s/p mechanical fall Discharge Disposition: Home Discharge Instruct/Medications Diet: Cardiac 2g Na,low cholest Activity: No Restrictions, As Tolerated Follow Up/Referral: pcp 1-2 weeks Medications: levaquin 500mg daily resume home meds Scheduled Acetaminophen (Acetaminophen), 650 MG PO TID Ascorbic Acid (Vitamin C Tablet), 1 TAB PO BID, (Reported) Aspirin (Aspir-Low), 1 TAB PO DAILY, (Reported) Atorvastatin Calcium (Atorvastatin Calcium), 40 MG PO HS Cholecalciferol (Vitamin D3), 1 TAB PO BID, (Reported) Clopidogrel Bisulfate (Clopidogrel), 75 MG PO DAILY Duloxetine Hydrochloride (Duloxetine Hydrochloride), 30 MG PO DAILY Fluoxetine HCl (Pmdd) (Fluoxetine HCl), 20 MG PO DAILY, (Reported) Fluticasone-Salmeterol (Fluticasone Propionate/SA 250-50 Mcg/Dose), 1 PUFF INH BID, (Reported) Levofloxacin Hemihydrate (Levaquin 500 Mg), 1 TAB PO DAILY Metoprolol Succinate (Metoprolol Succinate Er), 1 TAB PO DAILY Multiple Vitamin (Tab-A-Radha), 1 TAB PO DAILY, (Reported) Oxybutynin Chloride (Oxybutynin Chloride), 5 MG PO Q8HR Oxycodone W/ Acetaminophen (Percocet 5/325MG), 1 TAB PO QID Pantoprazole Sodium Sesquihydr (Pantoprazole Sodium), 1 TAB PO DAILY, (Reported) Phenazopyridine HCl (Eq Urinary Pain Relief Ma), 99.5 MG PO TID Ranolazine (Ranolazine ER), 500 MG PO BID Spironolactone (Aldactone), 25 MG PO DAILY Scheduled PRN Albuterol Sulfate (Albuterol Sulfate Hfa), 2 PUFF INH Q4HPRN PRN for dyspnea, (Reported) Ipratropium-Albuterol (Ipratropium [place]/Albut), 1 VIAL NEB Q6HPRN PRN for SHORTNESS OF BREATH, (Reported) Polyethylene Glycol 3350 (Miralax), 17 GM PO DAILY PRN for FOR CONSTIPATION, (Reported) Discharge Statement: "Patient was advised to return to the ER or call 911 if any headaches, dizziness, shortness of breath, chest pain, abdominal pain, bleeding, fevers, or worsening of medical condition. Patient was counseled about treatment plan, medications, possible side effects, patientverbalized understanding. All questions were answered to the best of my ability. This discharge took greater then 30 minutes in planning, reviewing documentation, counseling the patient, and discussing with other team members." ASSESSMENT ASSESSMENT Assessment UTI Date of Service: Dec 23, 2024 Billing Provider: LUIS REICH MD Common Visit Codes: [id number]/[id number] DISCH DAY >30min LUIS REICH MD Dec 23, 2024 22:09
[2024-12-24] VITALS (13 sets, daily range): BP systolic 111–136; BP diastolic 52–65; PULSE 63–90; RESP 14–19; TEMP 36.7; O2SAT 94–99
[2024-12-24] MEDS: DOCUSATE SOD 100 MG CAP PO PRN (05:20)
[2024-12-24 09:55] LABS: Hematocrit 40.5 % (36.0-46.0); Hemoglobin 13.4 g/dL (12.2-16.2); Mean Corpuscular Hemoglobin 29.6 pg (28.0-32.0); Mean Corpuscular Volume 89.2 fL (80.0-100.0); Nucleated Red Blood Cells % 0.1 %
[2024-12-24 10:15] LABS: Alanine Aminotransferase 11 U/L (7-40); Albumin 4.4 g/dL (3.2-4.8); Alkaline Phosphatase 55 U/L (46-116); Anion Gap 12 (5-15); BUN/Creatinine Ratio 21.6 (10.0-20.0); Bilirubin, Total 0.6 mg/dL (0.2-1.0); Carbon Dioxide 28 mmol/L (20-31); Chloride 100 mmol/L (98-107); Glucose 84 mg/dL (74-106); Magnesium 2.3 mg/dL (1.6-2.6); Sodium 140 mmol/L (136-145); Total Protein 6.3 g/dL (5.7-8.2)
[2024-12-24 10:16] LABS: Blood Urea Nitrogen 38 mg/dL (9-23); Calcium 10.4 mg/dL (8.7-10.4); Potassium 3.3 mmol/L (3.5-5.1)
--- NOTE | 2024-12-24 11:43 | DVHPN2 ---
Subjective The patient seen and examined at bedside. Complain of severe pain. the patient fall at night and now complains of right ankle, hip pain. Reviewed: Care Plan, H&P, Labs, Medications, Previous Orders, Radiology Objective Vitals Vital Signs Date Time Temp Pulse Resp B/P (MAP) Pulse Ox O2 Delivery O2 Flow Rate FiO2 12/24/24 10:16 63 136/52 12/24/24 09:00 98.0 16 95 98.0 12/24/24 08:00 Nasal Cannula* 2 28 Intake/Output Intake and Output 12/24/24 07:00 Intake Total 1310 ml Output Total 550 ml Balance 760 ml Intake Oral 1210 ml IV Total 100 ml Output Urine Total 550 ml # Voids 2 General Appearance: Alert, Cooperative, No acute distress HEENT: Atraumatic Lungs: Other (Few crackles and wheezes bilateral lungs) Cardiovascular: Regular rate Abdomen: Normal bowel sounds, Soft Extremities: Other (Some bilateral lower extremity edema) Medications Current Medications Medications Dose Ordered Sig/Asha Route Start Time Stop Time Status Last Admin Dose Admin Sodium Chloride 10 ml Q8HR IV 12/19/24 22:00 12/24/24 05:22 10 ML Docusate Sodium 100 mg BIDPRN PRN PO 12/19/24 20:15 12/24/24 05:20 100 MG Acetaminophen 650 mg Q6HP PRN PO 12/19/24 20:15 12/24/24 05:21 650 MG Ondansetron HCl 4 mg Q4HP PRN IV 12/19/24 20:15 12/24/24 09:57 4 MG Enoxaparin Sodium 40 mg DAILY SC 12/20/24 10:00 12/24/24 09:56 40 MG Furosemide 40 mg BID IV 12/19/24 22:00 12/24/24 10:15 40 MG Ascorbic Acid 500 mg BID PO 12/19/24 22:00 12/24/24 09:57 500 MG Aspirin 81 mg DAILY PO 12/20/24 10:00 12/24/24 09:57 81 MG Atorvastatin Calcium 40 mg HS PO 12/19/24 22:00 12/23/24 21:53 40 MG Clopidogrel Bisulfate 75 mg DAILY PO 12/20/24 10:00 12/24/24 09:57 75 MG Duloxetine HCl 30 mg DAILY PO 12/20/24 10:00 12/24/24 09:57 30 MG Multivitamins 1 tab DAILY PO 12/20/24 10:00 12/24/24 09:57 1 TAB Oxybutynin Chloride 5 mg Q8HR PO 12/19/24 22:00 12/24/24 05:20 5 MG Pantoprazole Sodium 40 mg DAILY PO 12/20/24 10:00 12/24/24 09:58 40 MG Polyethylene Glycol 17 gm DAILY PRN PO 12/19/24 20:15 Ranolazine 500 mg BID PO 12/19/24 22:00 12/24/24 10:06 500 MG Spironolactone 25 mg DAILY PO 12/20/24 10:00 12/24/24 10:06 25 MG Cholecalciferol 2,000 unit BID PO 12/19/24 22:00 12/24/24 09:58 2,000 UNIT Metoprolol Succinate 25 mg DAILY PO 12/20/24 10:00 12/24/24 10:16 25 MG Fluoxetine HCl 20 mg DAILY PO 12/20/24 10:00 12/24/24 09:57 20 MG Budesonide 0.5 mg BID [facility] 12/20/24 10:00 12/24/24 06:22 0.5 MG Phenazopyridine HCl 100 mg TID PRN PO 12/19/24 23:45 Albuterol 2.5 mg Q6HR [facility] 12/20/24 18:00 12/24/24 11:39 2.5 MG Albuterol 2.5 mg Q3HPRN PRN [facility] 12/20/24 18:00 Ipratropium Jessie 0.5 mg Q6HR [facility] 12/20/24 18:00 12/24/24 11:39 0.5 MG Laboratory Results Laboratory Tests 12/24/24 08:42 Chemistry Test 12/24/24 08:42 Albumin 4.4 g/dL (3.2-4.8) Calcium Level 10.4 mg/dL (8.7-10.4) Magnesium Level 2.3 mg/dL (1.6-2.6) Total Protein 6.3 g/dL (5.7-8.2) LFT Test 12/24/24 08:42 Alanine Aminotransferase (ALT) 11 U/L (7-40) Alkaline Phosphatase 55 U/L (46-116) Aspartate Amino Transferase (AST) 23 U/L (13-40) Total Bilirubin 0.6 mg/dL (0.2-1.0) Urinalysis Test 12/19/24 16:52 Urine Color [place] (Yellow) H Urine Clarity [place] (Clear) H Urine pH 5.5 (5.0-9.0) Urine Specific [place] 1.033 (1.001-1.035) Urine Protein 1+ (Negative) H Urine Ketones Negative (Negative) Urine Blood Negative /uL (Negative) Urine Nitrite Negative (Negative) Urine Bilirubin Negative (Negative) Urine Urobilinogen 2 mg/dL (Negative) H Urine Leukocyte Esterase 1+ /uL (Negative) Urine RBC 6 /hpf (0 - 4) Urine Microscopic WBC 12 /HPF (0-5) H Urine Squamous Epithelial Cells Few /hpf (<5) Urine Bacteria Few /hpf (None Seen) H Urine Hyaline Casts Few /lpf (0 - 2) Urine Mucus Few (None Seen) Urine Glucose Normal mg/dL (Normal) Microbiology Microbiology Date/Time Source Procedure Growth Status 12/21/24 05:20 Nose MRSA Screen - Final Complete 12/19/24 16:52 Voided Urine Urine Culture - Final Complete Assessment/Plan Assessment/Plan chest pain r/o acs Acute CHF exacerbation UTI Chronic pain syndrome s/p mechanical fall Continuing current management. We will follow up with echo. Keep potassium greater than four and magnesium greater than two Continuing IV Levaquin for UTI. Continuing with IV Lasix I will dc oxycodone. I will cut dilaudid down to 0.5mg IV q6hPRN I will order XRay of right ankle, hip and CT head r/o CVA or bleeding. Discharge planning This medical document was created using an electronic medical record system with [email or web address] direct computerized dictation system. Although this document has been carefully reviewed, there may still be some phonetic and typographical errors. These areas are purely typographical due to imperfections of the software programs, and do not reflect any compromise in the patient's medical care. My Orders Orders - LUIS REICH MD Procedure Category Date Status Time Discharge DISCHARGE 12/23/24 Transmitted 11:51 * Register Repairer CONS 12/23/24 Transmitted Consult * Register Repairer CONS 12/24/24 Transmitted Consult LUIS REICH MD Dec 24, 2024 11:43
--- NOTE | 2024-12-28 09:55 | DVHPN2 ---
Subjective The patient seen and examined at bedside. The patient did not went home yesterday because she was waiting for a new hospice company to take her case. Reviewed: Care Plan, H&P, Labs, Medications, Previous Orders, Radiology Changes from previous H/P or p: No Changes Objective General Appearance: Alert, Cooperative, No acute distress HEENT: Atraumatic Lungs: Other (Few crackles and wheezes bilateral lungs) Cardiovascular: Regular rate Abdomen: Normal bowel sounds, Soft Extremities: Other (Some bilateral lower extremity edema) Laboratory Results Laboratory Tests 12/24/24 08:42 Urinalysis Test 12/19/24 16:52 Urine Color [place] (Yellow) H Urine Clarity Turbid (Clear) H Urine pH 5.5 (5.0-9.0) Urine Specific [place] 1.033 (1.001-1.035) Urine Protein 1+ (Negative) H Urine Ketones Negative (Negative) Urine Blood Negative /uL (Negative) Urine Nitrite Negative (Negative) Urine Bilirubin Negative (Negative) Urine Urobilinogen 2 mg/dL (Negative) H Urine Leukocyte Esterase 1+ /uL (Negative) Urine RBC 6 /hpf (0 - 4) Urine Microscopic WBC 12 /HPF (0-5) H Urine Squamous Epithelial Cells Few /hpf (<5) Urine Bacteria Few /hpf (None Seen) H Urine Hyaline Casts Few /lpf (0 - 2) Urine Mucus Few (None Seen) Urine Glucose Normal mg/dL (Normal) Microbiology Microbiology Date/Time Source Procedure Growth Status 12/21/24 05:20 Nose MRSA Screen - Final Complete 12/19/24 16:52 Voided Urine Urine Culture - Final Complete Labs and/or images reviewed: Labs reviewed by me Assessment/Plan Assessment/Plan chest pain r/o acs Acute CHF exacerbation UTI Chronic pain syndrome s/p mechanical fall Continuing current management. We will follow up with echo. Keep potassium greater than four and magnesium greater than two Continuing IV Levaquin for UTI. Continuing with IV Lasix I will dc oxycodone. I will cut dilaudid down to 0.5mg IV q6hPRN I will order XRay of right ankle, hip and CT head r/o CVA or bleeding. Discharge home today. This medical document was created using an electronic medical record system with [employer] direct computerized dictation system. Although this document has been carefully reviewed, there may still be some phonetic and typographical errors. These areas are purely typographical due to imperfections of the software programs, and do not reflect any compromise in the patient's medical care. Plan discussed with: Patient Date of Service: Dec 24, 2024 Billing Provider: LUIS REICH MD Common Visit Codes: 88695-[id number] INP/OBS CARE(HIGH) LUIS REICH MD Dec 28, 2024 09:55
== END 2024-12-24 18:55 | disposition home or self-care (01) | DRG 291 ==
LOC: ER 16:10 → EDBD 16:10 → OVERFLOW 20:02 → TELE-WESTW 20:37
PROVIDERS: ADMIT Internal Medicine; ATTEND Internal Medicine
DX: I13.0 Hypertensive heart and chronic kidney disease with heart failure and stage 1 through stage 4 chronic kidney disease, or unspecified chronic kidney disease (principal); I50.23 Acute on chronic systolic (congestive) heart failure; J96.21 Acute and chronic respiratory failure with hypoxia; I24.9 Acute ischemic heart disease, unspecified; N39.0 Urinary tract infection, site not specified; J44.1 Chronic obstructive pulmonary disease with (acute) exacerbation; K21.9 Gastro-esophageal reflux disease without esophagitis; I25.10 Atherosclerotic heart disease of native coronary artery without angina pectoris; G89.4 Chronic pain syndrome; M10.9 Gout, unspecified; E78.5 Hyperlipidemia, unspecified; I25.5 Ischemic cardiomyopathy; N18.30 Chronic kidney disease, stage 3 unspecified; Z98.61 Coronary angioplasty status; Z95.810 Presence of automatic (implantable) cardiac defibrillator; Z95.1 Presence of aortocoronary bypass graft; Z90.710 Acquired absence of both cervix and uterus; Z90.49 Acquired absence of other specified parts of digestive tract; Z88.5 Allergy status to narcotic agent; Z87.442 Personal history of urinary calculi; Z86.73 Personal history of transient ischemic attack (TIA), and cerebral infarction without residual deficits; Z83.3 Family history of diabetes mellitus; Z82.49 Family history of ischemic heart disease and other diseases of the circulatory system; Z82.3 Family history of stroke; Z88.1 Allergy status to other antibiotic agents; Z79.82 Long term (current) use of aspirin; Z79.899 Other long term (current) drug therapy
CPT/HCPCS: 36415; 70450; 71045; 73030; 73502; 73600; 73700; 74176; 80053; 81001; 83605; 83690; 83735; 83880; 84484; 85007; 85025; 85027; 87081; 87086; 93005; 94640; 96374; 99291; G0378; J1956; J2405

== ENCOUNTER 2025-01-03 10:46 | Inpatient (IN) | payer OTHER, MEDICAID ==
[~2025-01-03] VITALS: Ht 162.6 cm; Wt 69.1 kg
[~2025-01-03 10:46] MED LIST changes: +LEVO500T91 PO
--- NOTE | 2025-01-03 12:09 | ED.PDOC ---
History of Present Illness HPI Comments 79-year-old female brought by paramedics for chest pain. Chest pain started 2 hours ago. Chest pain radiating into the jaw. Chest pain upon rest. She does have a history of COPD coronary artery disease CABG on home oxygen. She does have a pacer in place. Paced rhythm at 79. Denies nausea vomiting sweating. Denies any other symptoms. 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 Hydrocodone (Verified Allergy, Unknown, rash, 05/18/23) tylenol is okay per patient Home Meds Active Scripts Levofloxacin Hemihydrate (LEVAQUIN 500 MG) 500 Mg Tab, 1 TAB PO DAILY, #7 TAB Prov:LUIS REICH MD 12/23/24 Oxycodone W/ Acetaminophen (Percocet 5/325MG) 1 Tab Tb, 1 TAB PO QID, #30 TAB Prov:JANE VEGA MD 09/29/24 Phenazopyridine HCl (Eq Urinary Pain Relief Ma) 99.5 Mg Tab, 99.5 MG PO TID for 10 Days, #30 TAB Prov:PHILL LEAL 09/23/24 Metoprolol Succinate (Metoprolol Succinate Er) 25 Mg Tab, 1 TAB PO DAILY for 30 Days, #30 TAB 5 Refills Prov:AXEL CARABALLO RESIDENT 09/06/24 Spironolactone (Aldactone) 25 Mg Tab, 25 MG PO DAILY for 30 Days, #30 TAB Prov:BHARAT MICHELLE RESIDENT 07/22/24 Oxybutynin Chloride (Oxybutynin Chloride) 5 Mg Tab, 5 MG PO Q8HR for 30 Days, #90 TAB Prov:BHARAT MICHELLE 07/22/24 Atorvastatin Calcium (ATORVASTATIN CALCIUM) 20 Mg Tab, 40 MG PO HS for 30 Days, #60 TAB Prov:BHARAT MICHELLE 07/22/24 Acetaminophen (Acetaminophen) 325 Mg Tab, 650 MG PO TID for 10 Days, #60 TAB Prov:BHARAT MICHELLE RESIDENT 07/22/24 Duloxetine Hydrochloride (Duloxetine Hydrochloride) 30 Mg Cap, 30 MG PO DAILY for 30 Days, #30 CAP Prov:WINSOME GOMEZ MD 04/29/24 Clopidogrel Bisulfate (CLOPIDOGREL) 75 Mg Tab, 75 MG PO DAILY for 30 Days, #30 TAB 5 Refills Prov:YENNY FRAIRE MD 11/26/23 Ranolazine (Ranolazine ER) 500 Mg Tab, 500 MG PO BID for 30 Days, #60 TAB 2 Refills Prov:MAGAN RUSS RESIDENT 09/16/23 Reported Medications Polyethylene Glycol 3350 (Miralax) 17 Gm Pow, 17 GM PO DAILY PRN for FOR CONSTIPATION for 30 Days, #30 01/28/24 Ipratropium-Albuterol (Ipratropium [place]/Albut) 1 Yuli Yuli, 1 VIAL NEB Q6HPRN PRN for SHORTNESS OF BREATH for 13 Days, #180 09/05/23 Fluticasone-Salmeterol (Fluticasone Propionate/SA 250-50 Mcg/Dose) 1 Aer Aer, 1 PUFF INH BID for 30 Days, #60 09/05/23 Albuterol Sulfate (Albuterol Sulfate Hfa) 108 Mcg/Act Aer, 2 PUFF INH Q4HPRN PRN for dyspnea for 17 Days, #18 09/05/23 Cholecalciferol (VITAMIN D3) 2,000 Unit Tab, 1 TAB PO BID for 30 Days, #60 08/28/23 Multiple Vitamin (Tab-A-Radha) Tab, 1 TAB PO DAILY for 30 Days, #30 08/28/23 Aspirin (Aspir-Low) 81 Mg Tab, 1 TAB PO DAILY for 30 Days, #30 08/28/23 Ascorbic Acid (VITAMIN C TABLET) 500 Mg Tb, 1 TAB PO BID for 30 Days, #60 05/18/23 Pantoprazole Sodium Sesquihydr (Pantoprazole Sodium) 40 Mg Tab, 1 TAB PO DAILY 05/18/23 Fluoxetine HCl (Pmdd) (Fluoxetine HCl) 20 Mg Tab, 20 MG PO DAILY, TAB 05/30/20 Information Source: Patient, Emergency Med Personnel Mode of Arrival: EMS Severity: Moderate Timing: Hours Past Medical History PAST MEDICAL HISTORY: Anemia, Anxiety, Asthma, CAD, CHF, CKF, COPD, CVA, Depression, GERD, Gout, High Lipids, HTN, Kidney Stones, TX, UTI'S Surgical History: Appendectomy, CABG, Hysterectomy, Pacemaker, PTCA, 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 Family History Family History: Reviewed,noncontributory to illness, Unknown Social History Smoker: Non-Smoker Alcohol: Denies ETOH Use Drugs: Denies Drug Use Lives In: Assisted Care Constitutional: denies: chills, diaphoresis, fatigue, fever, malaise, sweats, weakness, others EENTM: denies: blurred vision, double vision, ear bleeding, ear discharge, ear drainage, ear pain, ear ringing, eye pain, eye redness, hearing loss, mouth pain, mouth swelling, nasal discharge, nose bleeding, nose congestion, nose pain, photophobia, tearing, throat pain, throat swelling, voice changes, others Respiratory: denies: cough, hemoptysis, orthopnea, SOB at rest, shortness of breath, SOB with excertion, stridor, wheezing, others Cardiovascular: reports: chest pain; denies: dizzy spells, diaphoresis, Dyspnea on exertion, edema, irregular heart beat, left arm pain, lightheadedness, palpitations, PND, syncope, others Gastrointestinal: denies: abdomen distended, abdominal pain, blood streaked bowels, constipated, diarrhea, dysphagia, difficulty swallowing, hematemesis, melena, nausea, poor appetite, poor fluid intake, rectal bleeding, rectal pain, vomiting, others Genitourinary: denies: abnormal vagina bleeding, burning, dyspareunia, dysuria, flank pain, frequency, hematuria, incontinence, pain, , vagina discharge, urgency, others Neurological: denies: dizziness, fainting, headache, left sided numbness, left sided weakness, numbness, paresthesia, pre-existing deficit, right sided numbness, right sided weakness, seizure, speech problems, tingling, tremors, weakness, others Musculoskeletal: denies: back pain, gout, joint pain, joint swelling, muscle pain, muscle stiffness, neck pain, others Integumetry: denies: bruises, change in color, change in hair/nails, dryness, laceration, lesions, lumps, rash, wounds, others Allergic/Immunocompromised: denies: Difficulty Healing, Frequent Infections, Hives, Itching, others Hematologic/Lymphatic: denies: anemia, blood clots, easy bleeding, easy bruising, swollen glands, others Endocrine: denies: excessive hunger, excessive sweating, excessive thirst, excessive urination, flushing, intolerance to cold, intolerance to heat, unexplained weight gain, unexplained weight loss, others Psychiatric: denies: anxiety, bipolar disorder, depression, hopeless, panic disorder, schizophrenia, sleepless, suicidal, others Physical Exam General Appearance: Moderate Distress HEENT: Normal ENT Inspection, Pharynx Normal, TMs Normal Neck: Full Range of Motion, Non-Tender, Normal, Normal Inspection Respiratory: Other (Coarse breath sounds) Cardiovascular: No Edema, No JVD, No Murmur, No Gallop, Normal Peripheral Pulses, Regular Rate/Rhythm Breast Exam: Deferred Gastrointestinal: No Organomegaly, Non Tender, No Pulsatile Mass, Normal Bowel Sounds, Soft Genitalia: Deferred Pelvic: Deferred Rectal: Deferred Extremities: No calf tenderness, Normal capillary refill, Normal inspection, Normal range of motion, Non-tender, No pedal edema Musculoskeletal : Apperance: Normal Neurologic: Alert, social science instructor II-XII nml as Tested, No Motor Deficits, Normal Affect, Normal Mood, No Sensory Deficits Cerebellar Function: Normal Reflexes: Normal Skin: Dry, Normal Color, Warm Peripheral Pulses: 3+ Radial (R), 3+ Radial (L) Lymphatic: No Adenopathy Was a procedure done? Was a procedure done?: No EKG EKG : Pulse Rate (adult): 79 Cardiac Rhythm: Paced Differential Dx Considerations may include: Chest pain Electrolyte imbalance X-Ray, Labs, Meds, VS Vital Signs Date Time Temp Pulse Resp B/P (MAP) Pulse Ox O2 Delivery O2 Flow Rate FiO2 01/03/25 10:52 79 01/03/25 10:50 99.0 70 18 108/70 97 99.0 Lab Test 01/03/25 11:11 Range/Units Troponin I High Sensitivity 25 </=34 ng/L Patient alert. Continues to have chest pain. Vitals stable. Answering questions. Reviewed her previous visit. EKG shows paced rhythm. Cardiac marker within normal limits pain Placed on oxygen. Explained to the patient. Continue monitoring. Time of 1ST Reevaluation: 12:07 Reevaluation 1ST: Unchanged Patient Education/Counseling: Diagnosis, Treatment, Prognosis Family Education/Counseling: No Family Present SEPSIS Sepsis Screen Date sepsis recognized/suspect: Jan 03, 2025 Time Sepsis recognized/suspect: 1050 Recent Procedure: No On Antibiotic Therapy: No Respiratory Rate >20: No Heart Rate >90: No Temp<36 C (96.8 F) or >38.3 C: No SBP <90 or MAP <65 mmHG: No New Acute Mental Status Change: No Is the patient on CPAP, BIPAP,: No Physician Orders Troponin-I Hs (01/03/25 11:50) Troponin-I Hs (01/03/25 13:50) Electrocardigram (01/03/25 10:50) Electrocardigram (01/03/25 11:50) Electrocardigram (01/03/25 13:50) Complete Blood Count (01/03/25 11:26) Urinalysis (01/03/25 11:26) Basic Metabolic Panel (01/03/25 11:26) Vital Signs Date Time Temp Pulse Resp B/P (MAP) Pulse Ox O2 Delivery O2 Flow Rate FiO2 01/03/25 10:52 79 01/03/25 10:50 99.0 70 18 108/70 97 99.0 Departure 1 Departure Time of Disposition: 12:08 Impression: Primary Impression: Chest pain of unknown etiology Disposition: ADMITTED INPATIENT Admit to: Med Surg Condition: Guarded Critical Care Note Critical Care Time?: Yes (90 min-critical care time only) Critical care comment: Placed on oxygen Stability Stability form required: No Heart Score Heart Score: Heart Score Response (Comments) Value History Slightly Suspicious 0 EKG Normal 0 Age >65 2 Risk Factors >3 or Hx ASHD 2 Troponin Normal limit 0 Total 4 AURORA RAMIREZ MD Jan 03, 2025 12:09
[2025-01-03] MEDS ORDERED: NITROGLYCERIN 0.4 MG SL TAB SL PRN ×2 (13:00)
[2025-01-03] MEDS ORDERED: IPRATROPIUM ALBUTEROL NEB PRN (13:00)
[2025-01-03] MEDS ORDERED: POLYETHYLENE GLYCOL 17 GM PWDR PO PRN (13:00)
[2025-01-03 13:21] LABS: Potassium 4.7 mmol/L (3.5-5.1); Sodium 141 mmol/L (136-145)
[2025-01-03 13:22] LABS: Anion Gap 10 (5-15); Carbon Dioxide 22 mmol/L (20-31)
[2025-01-03 13:23] LABS: Calcium 9.6 mg/dL (8.7-10.4); Chloride 109 mmol/L (98-107)
[2025-01-03 13:27] LABS: BUN/Creatinine Ratio 11.8 (10.0-20.0); Blood Urea Nitrogen 14 mg/dL (9-23); Glucose 84 mg/dL (74-106)
[2025-01-03 13:45] LABS: Hematocrit 43.2 % (36.0-46.0); Hemoglobin 13.8 g/dL (12.2-16.2); Mean Corpuscular Hemoglobin 29.4 pg (28.0-32.0); Mean Corpuscular Volume 92.0 fL (80.0-100.0); Nucleated Red Blood Cells % 0.0 %
--- NOTE | 2025-01-03 14:04 | DVH ---
INDICATION: sob TECHNIQUE: Frontal view of the chest. COMPARISON: XY CHEST PORTABLE on DOS: 12/19/24, XY CHEST XRAY 1 VIEW on DOS: 11/30/24, XY CHEST XRAY 1 V IEW on DOS: 11/09/24, XY CHEST PORTABLE on DOS: 10/20/24, XY CHEST PORTABLE on DOS: 10/17/24 FINDINGS: Cardiomegaly . Median sternotomy. Left pacemaker There is no evidence of pleural disease. The lungs a re clear. The bony structures of the chest are intact without fracture. IMPRESSION: 1. No evidence of acute disease.
[2025-01-03] MEDS: OXYBUTYNIN CHL 5 MG TAB PO SCH (16:40)
[2025-01-03] MEDS: ONDANSETRON HCL 4 MG/2 ML VIAL IV PRN (16:40)
[2025-01-03] MEDS: MORPHINE SULFATE 4 MG/ML SYR/VIAL IV PRN (16:41)
--- NOTE | 2025-01-03 16:44 | DVHHP2 ---
History of Present Illness Reason for Visit: chest pain firing of pacemaker History of Present Illness 79-year-old female with a past medical history of hypertension, kidney stones, hyperlipidemia, gout, GERD, COPD, CAD status post CABG on 23 L home oxygen, pacemaker placement, anemia, anxiety, asthma, CVA, depression, overactive bladder, NM, and recurrent UTIs, with surgical history notable for CABG, oophorectomy, appendectomy, hysterectomy, PTCA, and tonsillectomy, presents with left-sided chest pain. She reports that her pacemaker has been firing multiple times throughout the day. She states it has been some time since her last pacemaker check and that her last stress test was years ago not able to provide much information to provider. She follows with Dr. Mercado for her cardiac care. She uses oxygen at home and was also concerned about a possible urinary tract infection due to burning with urination. She reports no alcohol, tobacco, or illicit drug use. She resides at a formal assisted living facility but feels she is unable to care for herself there and would prefer transfer to a fpc facility. In the ED, troponin was negative. Review of her chart shows an echocardiogram from November 30, 2024, with an EF of 10% and pacemaker in place. No additional labs or imaging were completed prior to this admission. will admit for further workup and cardaic care. Past Medical History See HPI above Past Surgical History See HPI above Family History Reviewed, non-contributory to the management of this case. Past Social History The patient lives at home, denies smoking, alcohol or illicit drugs abuse. Review of Systems Constitutional: No: Fever, Chills, Sweats, Weakness, Malaise, Other Eyes: No: Pain, Vision change, Conjunctivae inflammation, Eyelid inflammation, Other, Redness ENT: No: Ear pain, Ear discharge, Nose pain, Nose discharge, Nose congestion, Mouth pain, Mouth swelling, Throat pain, Throat swelling, Other Respiratory: Shortness of breath; No: Cough, Dry, SOB with excertion, Wheezing, Hemoptysis, Pleuritic Pain, Sputum, Wheezing, Other Cardiovascular: Chest Pain; No: Palpitations, Orthopnea, Paroxysmal Noc. Dyspnea, Edema, Lt Headedness, Other Gastrointestinal: No: Nausea, Vomiting, Abdominal Pain, Diarrhea, Constipation, Melena, Hematochezia, Other Genitourinary: No Dysuria, No Frequency, No Incontinence, No Hematuria, No Retention, No Other Musculoskeletal: No: other, neck pain, shoulder pain, arm pain, back pain, hand pain, leg pain, foot pain Skin: No: Rash, Lesions, Jaundice, Bruising, Other Neurological: No: Weakness, Numbness, Incoordination, Change in speech, Confusion, Seizures, Other Allergies: Coded Allergies: Ceftriaxone (Verified Allergy, Intermediate, generalized rash, 11/08/22) FEED MILLERCARLENE MEJIA Hydrocodone (Verified Allergy, Unknown, rash, 05/18/23) tylenol is okay per patient Medications Current Medications Medications Dose Ordered Sig/Asha Route Start Time Stop Time Status Last Admin Dose Admin Ascorbic Acid 500 mg BID PO 01/03/25 22:00 Aspirin 81 mg DAILY PO 01/04/25 10:00 Atorvastatin Calcium 40 mg HS PO 01/03/25 22:00 Clopidogrel Bisulfate 75 mg DAILY PO 01/04/25 10:00 Duloxetine HCl 30 mg DAILY PO 01/04/25 10:00 Multivitamins 1 tab DAILY PO 01/04/25 10:00 Oxybutynin Chloride 5 mg Q8HR PO 01/03/25 14:00 Pantoprazole Sodium 40 mg DAILY@0700 PO 01/04/25 07:00 Polyethylene Glycol 17 gm DAILY PRN PO 01/03/25 13:00 Ranolazine 500 mg BID PO 01/03/25 22:00 Spironolactone 25 mg DAILY PO 01/04/25 10:00 Patient Own Medication 1 tab BID PO 01/03/25 22:00 UNV Patient Own Medication 20 mg DAILY PO 01/04/25 10:00 UNV Patient Own Medication 1 puff BID INH 01/03/25 22:00 UNV Patient Own Medication 1 vial Q6HPRN PRN NEB 01/03/25 13:00 UNV Patient Own Medication 1 tab DAILY PO 01/04/25 10:00 UNV Morphine Sulfate 2 mg Q30MP PRN IV 01/03/25 13:00 Acetaminophen 325 mg Q4HP PRN PO 01/03/25 13:00 Docusate Sodium 100 mg DAILY PO 01/04/25 10:00 Nitroglycerin 0.4 mg Q5MINP PRN SL 01/03/25 13:00 Ondansetron HCl 4 mg Q4HP PRN IV 01/03/25 13:00 Exam Vital Signs Vital Signs Date Time Temp Pulse Resp B/P (MAP) Pulse Ox O2 Delivery O2 Flow Rate FiO2 01/03/25 15:35 98.0 81 16 112/61 (78) 97 98.0 General Appearance: Alert, Oriented X3, Cooperative, No acute distress HEENT: Atraumatic, PERRLA, EOMI, Mucous membr. moist/pink Respiratory: Clear to auscultation, Normal air movement, Other (erica sounds throughout) Cardiovascular: Regular rate, Normal S1, Normal S2, No murmurs Abdominal: Normal bowel sounds, Soft, No tenderness, No hepatospenomegaly Extremities: No clubbing, No cyanosis, No edema, Normal pulses, No tenderness/swelling Skin: No rashes, No breakdown, No significant lesion Neuro: Normal gait, Normal speech, Strength at 5/5 X4 ext, Normal tone, Sensation intact, Cranial nerves 3-12 NL Psych/Mental Status: Mental status NL, Mood NL Labs/Xrays I reviewed labs, imaging CT scan abdomen pelvis, EKG and all diagnostic studies on this patient from ED records and the medical chart Reviewed echo from 11/30/2024 EF 10% Labs Test 01/03/25 15:14 01/03/25 12:53 01/03/25 11:11 Range/Units Troponin I High Sensitivity 25 </=34 ng/L Sodium Level 141 136-145 mmol/L Potassium Level 4.7 3.5-5.1 mmol/L Chloride Level 109 H 98-107 mmol/L Carbon Dioxide Level 22 20-31 mmol/L Anion Gap 10 5-15 Blood Urea Nitrogen 14 9-23 mg/dL Creatinine 1.19 H 0.550-1.02 mg/dL Glomerular Filtration Rate Calc 46 >90 mL/min BUN/Creatinine Ratio 11.8 10.0-20.0 Serum Glucose 84 74-106 mg/dL Calcium Level 9.6 8.7-10.4 mg/dL White Blood Count 13.5 H 4.4-10.8 10^3/uL Red Blood Count 4.69 4.0-5.20 10^6/uL Hemoglobin 13.8 12.2-16.2 g/dL Hematocrit 43.2 36.0-46.0 % Mean Corpuscular Volume 92.0 80.0-100.0 fL Mean Corpuscular Hemoglobin 29.4 28.0-32.0 pg Mean Corpuscular Hemoglobin Concent 32.0 32.0-36.0 g/dL Red Cell Distribution Width 17.7 H 11.8-14.3 % Platelet Count 289 140-450 10^3/uL Mean Platelet Volume 8.0 6.9-10.8 fL Neutrophils (%) (Auto) 73.4 37.0-80.0 % Lymphocytes (%) (Auto) 15.2 10.0-50.0 % Monocytes (%) (Auto) 8.5 0.0-12.0 % Eosinophils (%) (Auto) 2.3 0.0-7.0 % Basophils (%) (Auto) 0.6 0.0-2.0 % Neutrophils # (Auto) 9.9 H 1.6-8.6 10 ^3/uL Lymphocytes # (Auto) 2.1 0.4-5.4 10 ^3/uL Monocytes # (Auto) 1.1 0-1.3 10 ^3/uL Eosinophils # (Auto) 0.3 0-0.8 10 ^3/uL Basophils # (Auto) 0.1 0-0.2 10 ^3/uL Nucleated Red Blood Cells 0.0 % Magnesium Level 2.2 1.6-2.6 mg/dL SEPSIS Sepsis Screen Date sepsis recognized/suspect: Jan 03, 2025 Time Sepsis recognized/suspect: 1050 Recent Procedure: No On Antibiotic Therapy: No Respiratory Rate >20: No Heart Rate >90: No Temp<36 C (96.8 F) or >38.3 C: No SBP <90 or MAP <65 mmHG: No New Acute Mental Status Change: No Is the patient on CPAP, BIPAP,: No Physician Orders Electrocardigram (01/03/25 10:50) Electrocardigram (01/03/25 11:50) Electrocardigram (01/03/25 13:50) Urinalysis (01/03/25 11:26) Chest Portable (01/03/25 12:09) Ascorbic Acid Tablet (Vitamin C Tablet) (01/03/25 22:00) Aspirin Enteric Coated Tablet (Ecotrin E (01/04/25 10:00) Atorvastatin (Lipitor) (01/03/25 22:00) Clopidogrel Bisulfate (Plavix) (01/04/25 10:00) Duloxetine Hcl Capsule (Cymbalta Capsule (01/04/25 10:00) Multiple Vitamin Tablet (Mvi Tab) (01/04/25 10:00) Oxybutynin Chloride Tablet (Ditropan Tab (01/03/25 14:00) Pantoprazole Tablet (Protonix Tablet) (01/04/25 07:00) Polyethylene Glycol 17g Powder (Miralax (01/03/25 13:00) Ranolazine (Ranexa Er) (01/03/25 22:00) Spironolactone (Aldactone) (01/04/25 10:00) (Nf) Cholecalciferol (Vitamin D3) (01/03/25 22:00) (Nf) Fluoxetine Hcl (Pmdd) (Fluoxetine H (01/04/25 10:00) (Nf) Fluticasone-Salmeterol (Fluticasone (01/03/25 22:00) (Nf) Ipratropium-Albuterol (Ipratropium (01/03/25 13:00) (Nf) Metoprolol Succinate (Metoprolol Pleitez (01/04/25 10:00) *Consult Dr. Trip Mercado (01/03/25 12:58) Admit (01/03/25 12:58) Code Status (01/03/25 12:58) Vital Signs .PER UNIT PROTOCOL (01/03/25 12:58) Diagram Clerk (01/03/25 12:58) May Elevate Hob ____ Degrees (01/03/25 12:58) Cardiac Diet-2gna,Lofat,Lochol (01/03/25 Lunch) Morphine Sulfate Injection (01/03/25 13:00) Acetaminophen Tablet (Tylenol Tablet) (01/03/25 13:00) Docusate Sodium Capsule (Colace Capsule) (01/04/25 10:00) Pulse Oximeter Check (01/03/25 12:58) Oxygen By Nasal Cannula (01/03/25 12:58) Complete Blood Count (01/04/25 04:00) Comprehensive Metabolic Panel (01/04/25 04:00) Nitroglycerin Sublingual (Ntrostat Subli (01/03/25 13:00) Ondansetron Hcl (Zofran) (01/03/25 13:00) Cardiac Rehabilitation - Outpa (01/03/25 ) Stat Ekg For Chest Pain (01/03/25 12:58) Notify Md Of Changes From Base (01/03/25 12:58) Executive Administrator For 24 Hours (01/03/25 12:58) Emergency Dysrhythmia Protocol (01/03/25 12:58) Rhythm Strips Once Every Shift (01/03/25 12:58) Oxygen By Nasal Cannula (01/03/25 12:58) Vital Signs Date Time Temp Pulse Resp B/P (MAP) Pulse Ox O2 Delivery O2 Flow Rate FiO2 01/03/25 15:35 98.0 81 16 112/61 (78) 97 98.0 01/03/25 12:09 79 01/03/25 10:52 79 01/03/25 10:50 99.0 70 18 108/70 97 99.0 Laboratory Tests Test 01/03/25 11:11 White Blood Count 13.5 10^3/uL (4.4-10.8) H Assessment/Plan Assessment/Plan 79 yr old female with Symptomatic pacemaker firing and chest pain in a patient with advanced heart failure and EF 10% requiring inpatient cardiac workup and cardiology evaluation. acute Symptomatic pacemaker firing / chest pain ordered cxr fu results Admit for cardiac monitoring Cardiology consult for pacemaker interrogation and evaluation Dr Tidwell pt cards specialist Continuous telemetry Serial troponins x3 first trop negative EKG no stemi Monitor for arrhythmias or device malfunction Supplemental O2 to maintain SpO2 >92% acute Severe systolic heart failure, EF 10% Continue home heart failure regimen will need to confirm medications with [facility] Daily weights, strict I/O Low-sodium diet Monitor for volume overload acute COPD on 2 L home O2 Continue home O2 Monitor respiratory status Bronchodilators PRN with albuterol and atrovent Possible urinary tract infection Ordered UA with culture will hold off on antibotics at this time until urine return Monitor for fever, leukocytosis chronic problems Hyperlipidemia Hypertension Gout Depression kidney stone COPD CAD s/p CABG Heart failure with reduced EF Pacemaker in situ ordered for pacemaker for interrogation CVA, history without deficits Anemia GERD Recurrent UTI asthma on home o2 2l nc FEN/PPx: Fluids: hl Electrolytes: Monitor and replete as needed Nutrition: Cardiac diet, low sodium DVT Prophylaxis: SCDs, GI Prophylaxis: Continue home PPI for GERD Disposition: Admit for cardiac monitoring, cardiology evaluation, and pacemaker interrogation. Anticipate discharge to SNF once medically stable and placement arranged by case management. Assess psychosocial needs in the setting of desire for SNF placement Plan discussed with: Patient My Orders Orders - ROSE MARY BEY DNP Procedure Category Date Status Time Ascorbic Acid Tablet PHA 01/03/25 In Process (Vitamin C Tablet) 22:00 Aspirin Enteric PHA 01/04/25 In Process Coated Tablet 10:00 Atorvastatin (Lipitor) PHA 01/03/25 In Process 22:00 Clopidogrel Bisulfate PHA 01/04/25 In Process (Plavix) 10:00 Duloxetine Hcl PHA 01/04/25 In Process Capsule (Cymbalta 10:00 Multiple Vitamin PHA 01/04/25 In Process Tablet (Mvi Tab) 10:00 Oxybutynin Chloride PHA 01/03/25 In Process Tablet (Ditropan Tab 14:00 Pantoprazole Tablet PHA 01/04/25 In Process (Protonix Tablet) 07:00 Polyethylene Glycol PHA 01/03/25 In Process 17g Powder (Miralax 13:00 Ranolazine (Ranexa Er) PHA 01/03/25 In Process 22:00 Spironolactone PHA 01/04/25 In Process (Aldactone) 10:00 (Nf) Cholecalciferol PHA 01/03/25 Logged (Vitamin D3) 22:00 (Nf) Fluoxetine Hcl PHA 01/04/25 Logged (Pmdd) (Fluoxetine H 10:00 (NF) PHA 01/03/25 Logged Fluticasone-Salmeterol 22:00 (NF) PHA 01/03/25 Logged Ipratropium-Albuterol 13:00 (Nf) Metoprolol PHA 01/04/25 Logged Succinate (Metoprolol 10:00 *Consult Dr. Dominique CONS 01/03/25 Transmitted Rogelio 12:58 Admit ADMIT 01/03/25 Transmitted 12:58 Code Status CODE 01/03/25 Transmitted 12:58 Vital Signs AME 01/03/25 In Process 12:58 Diagram Clerk AME 01/03/25 In Process 12:58 May Elevate Hob ____ AME 01/03/25 In Process Degrees 12:58 Cardiac DIET 01/03/25 Transmitted Diet-2gna,Lofat,Lochol Lunch Morphine Sulfate PHA 01/03/25 In Process Injection 13:00 Acetaminophen Tablet PHA 01/03/25 In Process (Tylenol Tablet) 13:00 Docusate Sodium PHA 01/04/25 In Process Capsule (Colace 10:00 Pulse Oximeter Check RT 01/03/25 Logged 12:58 Oxygen By Nasal RT 01/03/25 Transmitted Cannula 12:58 Complete Blood Count LAB 01/04/25 Verified 04:00 Comprehensive LAB 01/04/25 Verified Metabolic Panel 04:00 Nitroglycerin PHA 01/03/25 In Process Sublingual (Ntrostat 13:00 Ondansetron Hcl PHA 01/03/25 In Process (Zofran) 13:00 Cardiac AME 01/03/25 In Process Rehabilitation - Outpa Stat Ekg For Chest AME 01/03/25 In Process Pain 12:58 Notify Of Changes AME 01/03/25 In Process From Base 12:58 Executive Administrator For AME 01/03/25 In Process 24 Hours 12:58 Emergency Dysrhythmia AME 01/03/25 In Process Protocol 12:58 Rhythm Strips Once AME 01/03/25 In Process Every Shift 12:58 Oxygen By Nasal RT 01/03/25 Transmitted Cannula 12:58 Date of Service: Jan 03, 2025 Billing Provider: ROSE MARY BEY DNP Common Visit Codes: [id number] INP/OBS CARE (HIGH) ROSE MARY BEY DNP Jan 03, 2025 16:44
--- NOTE | 2025-01-03 18:09 | ECG ---
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
[2025-01-03 19:30] VITALS: BP 103/53; PULSE 78; RESP 20; O2SAT 96
[2025-01-03] MEDS ORDERED: RANOLAZINE ER 500 MG TAB PO SCH (22:00)
[2025-01-03] MEDS: FLUTICASONE SALMETEROL IN SCH (22:00)
[2025-01-04] VITALS (7 sets, daily range): BP systolic 106–110; BP diastolic 51–88; PULSE 65–96; RESP 14–20; TEMP 97.8; O2SAT 94–100
[2025-01-04] MEDS: CHOLECALCIFEROL (VITD3) 1,000UNIT=25mCg TAB PO SCH (00:29)
[2025-01-04] MEDS: ASCORBIC ACID 500 MG TAB PO SCH (00:29)
[2025-01-04] MEDS: RANOLAZINE ER 500 MG TAB PO SCH (00:30)
[2025-01-04] MEDS: ATORVASTATIN 20 MG TAB PO SCH (00:30)
[2025-01-04] MEDS: HYDROcodone-ACET 5/325MG TAB PO ONE ×2 (01:30→03:16)
[2025-01-04 05:42] LABS: Hematocrit 38.2 % (36.0-46.0); Hemoglobin 12.5 g/dL (12.2-16.2); Mean Corpuscular Hemoglobin 29.8 pg (28.0-32.0); Mean Corpuscular Volume 91.2 fL (80.0-100.0); Nucleated Red Blood Cells % 0.1 %
[2025-01-04 06:10] LABS: Albumin 3.9 g/dL (3.2-4.8); Alkaline Phosphatase 57 U/L (46-116); Anion Gap 9 (5-15); BUN/Creatinine Ratio 16.7 (10.0-20.0); Blood Urea Nitrogen 18 mg/dL (9-23); Calcium 8.9 mg/dL (8.7-10.4); Carbon Dioxide 22 mmol/L (20-31); Potassium 4.8 mmol/L (3.5-5.1); Sodium 140 mmol/L (136-145)
[2025-01-04 06:11] LABS: Bilirubin, Total 0.8 mg/dL (0.2-1.0)
[2025-01-04 06:18] LABS: Alanine Aminotransferase < 9 U/L (7-40); Chloride 109 mmol/L (98-107); Glucose 73 mg/dL (74-106); Total Protein 5.6 g/dL (5.7-8.2)
[2025-01-04 06:57] LABS: Urine Protein, UAD TRACE (Negative)
[2025-01-04] MEDS: PANTOPRAZOLE 40 MG TAB PO SCH (07:08)
[2025-01-04] MEDS: SPIRONOLACTONE 25 MG TAB PO SCH (10:00)
[2025-01-04] MEDS: METOPROLOL SUCCINATE XL 50 MG TAB PO SCH (10:00)
--- NOTE | 2025-01-04 10:15 | DVHINCON2 ---
Date of service: Jan 04, 2025 History of Present Illness HPI Patient is a 79-year-old female who presented to the hospital with lower abdominal pain. She mentions that she has pain while urinating. She denies any recent chest pain. Emergency room physicians had documented that the patient presented with chest pain. Patient denies any recent chest pain. Patient does have history of coronary artery disease for which has been following with us/cardiology. Patient does have history of repeated admissions for chest discomfort and also bladder problems. Home Meds Active Scripts Levofloxacin Hemihydrate (LEVAQUIN 500 MG) 500 Mg Tab, 1 TAB PO DAILY, #7 TAB Prov:LUIS REICH MD 12/23/24 Oxycodone W/ Acetaminophen (Percocet 5/325MG) 1 Tab Tb, 1 TAB PO QID, #30 TAB Prov:JANE VEGA MD 09/29/24 Phenazopyridine HCl (Eq Urinary Pain Relief Ma) 99.5 Mg Tab, 99.5 MG PO TID for 10 Days, #30 TAB Prov:PHILL LEAL RESDIDEBRA 09/23/24 Metoprolol Succinate (Metoprolol Succinate Er) 25 Mg Tab, 1 TAB PO DAILY for 30 Days, #30 TAB 5 Refills Prov:AXEL CARABALLO 09/06/24 Spironolactone (Aldactone) 25 Mg Tab, 25 MG PO DAILY for 30 Days, #30 TAB Prov:BHARAT MICHELLE RESIDENT 07/22/24 Oxybutynin Chloride (Oxybutynin Chloride) 5 Mg Tab, 5 MG PO Q8HR for 30 Days, #90 TAB Prov:BHARAT MICHELLE 07/22/24 Atorvastatin Calcium (ATORVASTATIN CALCIUM) 20 Mg Tab, 40 MG PO HS for 30 Days, #60 TAB Prov:BHARAT MICHELLE RESIDENT 07/22/24 Acetaminophen (Acetaminophen) 325 Mg Tab, 650 MG PO TID for 10 Days, #60 TAB Prov:BHARAT MICHELLE 07/22/24 Duloxetine Hydrochloride (Duloxetine Hydrochloride) 30 Mg Cap, 30 MG PO DAILY for 30 Days, #30 CAP Prov:WINSOME GOMEZ MD 04/29/24 Clopidogrel Bisulfate (CLOPIDOGREL) 75 Mg Tab, 75 MG PO DAILY for 30 Days, #30 TAB 5 Refills Prov:YENNY FRAIRE MD 11/26/23 Ranolazine (Ranolazine ER) 500 Mg Tab, 500 MG PO BID for 30 Days, #60 TAB 2 Refills Prov:MAGAN RUSS RESIDENT 09/16/23 Reported Medications Polyethylene Glycol 3350 (Miralax) 17 Gm Pow, 17 GM PO DAILY PRN for FOR CONSTIPATION for 30 Days, #30 01/28/24 Ipratropium-Albuterol (Ipratropium [place]/Albut) 1 Yuli Yuli, 1 VIAL NEB Q6HPRN PRN for SHORTNESS OF BREATH for 13 Days, #180 09/05/23 Fluticasone-Salmeterol (Fluticasone Propionate/SA 250-50 Mcg/Dose) 1 Aer Aer, 1 PUFF INH BID for 30 Days, #60 09/05/23 Albuterol Sulfate (Albuterol Sulfate Hfa) 108 Mcg/Act Aer, 2 PUFF INH Q4HPRN PRN for dyspnea for 17 Days, #18 09/05/23 Cholecalciferol (VITAMIN D3) 2,000 Unit Tab, 1 TAB PO BID for 30 Days, #60 08/28/23 Multiple Vitamin (Tab-A-Radha) Tab, 1 TAB PO DAILY for 30 Days, #30 08/28/23 Aspirin (Aspir-Low) 81 Mg Tab, 1 TAB PO DAILY for 30 Days, #30 08/28/23 Ascorbic Acid (VITAMIN C TABLET) 500 Mg Tb, 1 TAB PO BID for 30 Days, #60 05/18/23 Pantoprazole Sodium Sesquihydr (Pantoprazole Sodium) 40 Mg Tab, 1 TAB PO DAILY 05/18/23 Fluoxetine HCl (Pmdd) (Fluoxetine HCl) 20 Mg Tab, 20 MG PO DAILY, TAB 05/30/20 Past Medical History Others Past medical history includes hypertension, hyperlipidemia, coronary artery disease, history of CABG (2010), systolic heart failure, ischemic cardiomyopathy, gout, kidney stone, s/p ESWL, frequent UTI, history of CVA, Diverticulosis, COPD, s/p COVID, depression, Anxiety, GERD, history of appendectomy/hysterectomy/tonsillectomy, and history of BiV ICD (Biotronik) implantation. She is chronically wheelchair-bound. She was previously in hospice for heart failure. She is allergic to codeine. She quit smoking years ago. She is DNR. She also has diagnosis of parkinsonism. Patient Family History: Arthritis Cardiovascular disease G8 MOTHER, Onset:Unknown Cerebrovascular accident (CVA) G8 FATHER Coronary artery disease G8 MOTHER, Onset:Unknown FH: diabetes mellitus G8 MOTHER, Onset:Unknown FH: heart disease G8 MOTHER, Onset:Unknown FH: hypertension G8 MOTHER, Onset:Unknown FH: lupus 19 CHILD FH: myocardial infarction G8 MOTHER, Onset:Unknown Family history: Cardiovascular disease G8 MOTHER, Onset:Unknown G8 FATHER, Onset:Unknown Glaucoma G8 MOTHER, Onset:Unknown Smoker: No Hx (Negative) Lives with: Long Term Review of Systems Constitutional: No symptom reported Ears, Nose, & Throat: No symptom reported Gastrointestinal: Abdominal Pain All Other Systems 14 point review of system was performed. Relevant findings as per above and as per HPI. Otherwise negative. H&P Exam Vital Signs Vital Signs Date Time Temp Pulse Resp B/P (MAP) Pulse Ox O2 Delivery O2 Flow Rate FiO2 01/04/25 09:48 96 Nasal Cannula 2.0 01/04/25 09:48 28 01/04/25 08:00 64 01/03/25 19:30 20 103/53 01/03/25 19:30 98.2 98.2 General Appeara: Well developed Head Exam: Normal inspection Eye Exam: bilateral eye PERRL Mouth: Normal Inspection Pulmonary/Respiratory: Lungs clear Cardiovascular/Chest: Normal inspection, Regular rate, Systolic murmur Peripheral Pulses: 2+ carotid (R), 2+ carotid (L), 2+ femoral (R), 2+ femoral (L), 2+ dorsalis pedis (R), 2+ dorsalis pedis (L), 2+ Radial (R), 2+ Radial (L) Abdominal Exam: Normal bowel sounds Neuro/Mental St: Alert, Oriented Appearance: Appropriate appearance Eye contact/ Speech: Cooperative Labs/Xrays Labs Test 01/04/25 06:00 01/04/25 04:48 01/03/25 15:14 01/03/25 11:11 Range/Units Urine Color Yellow Yellow Urine Clarity Turbid H Clear Urine pH 5.5 5.0-9.0 Urine Specific [place] 1.023 1.001-1.035 Urine Protein Trace H Negative Urine Ketones Negative Negative Urine Blood Negative Negative /uL Urine Nitrite 1+ H Negative Urine Bilirubin Negative Negative Urine Urobilinogen Normal Negative mg/dL Urine Leukocyte Esterase 3+ Negative /uL Urine Glucose Normal Normal mg/dL White Blood Count 12.1 H 4.4-10.8 10^3/uL Red Blood Count 4.19 4.0-5.20 10^6/uL Hemoglobin 12.5 12.2-16.2 g/dL Hematocrit 38.2 # 36.0-46.0 % Mean Corpuscular Volume 91.2 80.0-100.0 fL Mean Corpuscular Hemoglobin 29.8 28.0-32.0 pg Mean Corpuscular Hemoglobin Concent 32.7 32.0-36.0 g/dL Red Cell Distribution Width 17.3 H 11.8-14.3 % Platelet Count 243 140-450 10^3/uL Mean Platelet Volume 7.8 6.9-10.8 fL Neutrophils (%) (Auto) 75.7 37.0-80.0 % Lymphocytes (%) (Auto) 14.3 10.0-50.0 % Monocytes (%) (Auto) 8.0 0.0-12.0 % Eosinophils (%) (Auto) 1.7 0.0-7.0 % Basophils (%) (Auto) 0.3 0.0-2.0 % Neutrophils # (Auto) 9.2 H 1.6-8.6 10 ^3/uL Lymphocytes # (Auto) 1.7 0.4-5.4 10 ^3/uL Monocytes # (Auto) 1.0 0-1.3 10 ^3/uL Eosinophils # (Auto) 0.2 0-0.8 10 ^3/uL Basophils # (Auto) 0 0-0.2 10 ^3/uL Nucleated Red Blood Cells 0.1 % Sodium Level 140 136-145 mmol/L Potassium Level 4.8 3.5-5.1 mmol/L Chloride Level 109 H 98-107 mmol/L Carbon Dioxide Level 22 20-31 mmol/L Anion Gap 9 5-15 Blood Urea Nitrogen 18 9-23 mg/dL Creatinine 1.08 H 0.550-1.02 mg/dL Glomerular Filtration Rate Calc 52 >90 mL/min BUN/Creatinine Ratio 16.7 10.0-20.0 Serum Glucose 73 L 74-106 mg/dL Calcium Level 8.9 8.7-10.4 mg/dL Total Bilirubin 0.8 0.2-1.0 mg/dL Aspartate Amino Transferase (AST) 18 13-40 U/L Alanine Aminotransferase (ALT) < 9 7-40 U/L Alkaline Phosphatase 57 46-116 U/L Total Protein 5.6 L 5.7-8.2 g/dL Albumin 3.9 3.2-4.8 g/dL Troponin I High Sensitivity 25 </=34 ng/L Magnesium Level 2.2 1.6-2.6 mg/dL Assessment/Plan Plan Patient is a 79-year-old female who presented to the hospital with lower abdominal pain. She mentions that she has pain while urinating. She denies any recent chest pain. Emergency room physicians had documented that the patient pr esented with chest pain. Patient denies any recent chest pain. Patient does have history of coronary artery disease for which has been following with us/cardiology. Patient does have history of repeated admissions for chest discomfort and also bladder problems. Cardiology is involved for cardiac aspects of care. She does have history of systolic heart failure. Serial high sensitive troponin has been negative. Lying comfortably flat in bed, no JVD, pink and wet mucosa, no carotid bruit, no goiter, lungs: Not using accessory muscles of breathing, lungs reveal scattered rhonchi, cardiac: Regular regular, no thrill/gallop, 2+murmur in apex, abdomen: Soft, no hepatomegaly, some suprapubic tenderness is positive, no rebound tenderness, extremities: No edema, dorsalis pedis is 2+ bilateral. Right femoral/groin area with no hematoma. Past medical history includes hypertension, hyperlipidemia, coronary artery disease, history of CABG (2010), systolic heart failure, ischemic cardiomyopathy, gout, kidney stone, s/p ESWL, frequent UTI, history of CVA, Diverticulosis, COPD, s/p COVID, depression, Anxiety, GERD, history of appendectomy/hysterectomy/tonsillectomy, and history of BiV ICD (Biotronik) implantation. She is chronically wheelchair-bound. She was previously in hospice for heart failure. She is allergic to codeine. She quit smoking years ago. She is DNR. She also has diagnosis of parkinsonism. Cardiac catheterization of August 26, 2024 (performed in [facility]) revealed triple-vessel [place] coronary artery disease. COUNT TEAM MEMBER of obtuse marginal. COUNT TEAM MEMBER of RCA. Lad with 75% lesion and status post drug-eluting stent deployment. It is of note that there is patent SVG to obtuse marginal and also patent SVG to RCA. Cardiac catheterization of September 2020 revealed ejection fraction of 20%, COUNT TEAM MEMBER of SVG to diagonal, patent TAN, patent SVG to OM, patent SVG to PDA and COUNT TEAM MEMBER of RCA. Echocardiogram of reported: Dilated left ventricle, LVEF of around 10%. Pacing wire was seen in the right-sided chambers. There was mild mitral regurgitation. There was trace tricuspid regurgitation. As there was no good tricuspid regurgitation jet, right ventricular systolic pressure could not be estimated. Echocardiogram of September 04, 2024 reported: Dilated left ventricle. LVEF of 10%. Increased EDP. Pacing wire in right-sided chambers. Mild mitral regurgitation. As there was no good tricuspid regurgitation jet, right ventricular systolic pressure could not be estimated Echocardiogram of August 25, 2024 (performed in [facility]) for PE old ejection fraction of 20% Echocardiogram of reported: LV EF of 15-20%, biatrial enlargement, pacing wire in the right-sided chambers. Echocardiogram of November 22, 2023 revealed: Dilated left ventricle, LVEF of 10%, pacing wire and right-sided chambers, mild mitral regurgitation. Echocardiogram of August 28, 2023 revealed: Dilated left ventricle with significantly reduced systolic function. LVEF of 20%. Elevated LVEDP, dilated four chambers. Pacing wire was seen in right-sided chamber. [id number] MR. Echocardiogram of January 03, 2023 revealed ejection fraction of 20 to 25% and mild left ventricular enlargement Echocardiogram of March 25, 2023 (performed in the office) revealed four- chamber dilatation, LVEF of 20 to 25%, mild to moderate MR, mild TR, trace pulmonary valve insufficiency and right ventricular systolic pressure of 35 mmHg Echocardiogram of March 21, 2022 revealed ejection fraction of around 20%, mild MR/TR Echocardiogram of February 17, 2021 revealed dilated LV, LVEF around 25%, severe diffuse hypokinesis, increased LVEDP, dilated left and right atria, mild to moderate MR, mild TR. Echocardiogram of December 30, 2020 reported ejection fraction less than 20% and dilated left atrium. Echocardiogram of August 2020 revealed ejection fraction less than 25%, right atrial enlargement, left atrial enlargement and moderate MR. WBC: 13.5 - 12.1 Troponin (high sensitive): 25 - 29 - 25 Magnesium: 2.2 Creatinine: 1.19 - 1.08 Potassium: 4.7 - 4.8 Chest x-ray reported: IMPRESSION: 1. No evidence of acute disease. EKG reviewed: Revealed sinus rhythm with paced ventricular rhythm Tele revealed: A sense V paced rhythm Patient is a 79-year-old female presented with lower abdominal pain. Does have history of repeated UTIs which could have contributed to the clinical picture. Patient does have baseline history of coronary artery disease and systolic heart failure. Presentation is not considered acute coronary syndrome. Cardiac-monge, the patient is compensated Serial high sensitive troponin has been negative and acute coronary syndrome is not considered. Patient is on dual antiplatelet therapy for previously implanted stent. To be kept on aspirin/Plavix. Does have baseline history of ischemic/systolic heart failure which at this point is considered compensated. She is DNR. Does complain of dysuria and has history of UTIs (not new). UTI Ischemic cardiomyopathy, history of Systolic CHF s/p BiV-ICD implantation Coronary artery disease, status post CABG Status post PCI Diverticular disease Renal calculi Emphysema Kidney stone, history of Coronary artery disease, SP CABG GERD Hypertension Hyperlipidemia Gout Constipation Cardiac suggestion for management: Manage on telemetry Follow-up electrolytes and kidney function tests and correct abnormalities. Keep potassium above 4 and magnesium above 2 Continue Aspirin/Plavix Continue Toprol-XL/Entresto/Aldactone/Ranolazine/Atorvastatin No indication to repeat ischemic workup/echocardiogram Evaluation and management of UTI/dysuria as per primary Further evaluation and management depends on the above and clinical course A total of 75 minutes was spent reviewing the patient record, examining the patient, making a diagnostic and therapeutic plan, discussing this plan with medical personnel, following up on diagnostic studies and following the patient for clinical stability excluding any and all procedures. At least 50% of this time was spent in direct, [id number] contact. Thank you for allowing me to participate in this patient's care. Further recommendations will depend on patient's clinical course. Please do not hesitate to contact me if you have any questions or concerns. This medical document was created using electronic medical record system with [employer] dictation system. Although this document has been carefully reviewed, there may still be some phonetic and typographical errors. These areas are purely typographical due to the imperfection of the software programs, and do not reflect any compromise in the patient's medical care. Plan discussed with: Other (Nurse) RODRIGUEZ LEBRON MD Jan 04, 2025 10:14
[2025-01-04] MEDS: CLOPIDOGREL BISULFATE 75 MG TAB PO SCH (12:15)
[2025-01-04] MEDS: SACUBITRIL-VALSARTAN 24mg/26mg TAB PO SCH (12:15)
[2025-01-04] MEDS: DOCUSATE SOD 100 MG CAP PO SCH (12:15)
[2025-01-04] MEDS: MULTIPLE VITAMIN TAB PO SCH (12:15)
[2025-01-04] MEDS: ASPirin-EC 81 mg tab PO SCH (12:16)
[2025-01-04] MEDS: ACETAMINOPHEN 325 MG TAB PO PRN (12:16)
--- NOTE | 2025-01-04 15:27 | DVHPN2 ---
Subjective Overnight events noted. Patient does complaining of lower abdominal pain and dysuria but denies any chest pain. Changes from previous H/P or p: No Changes Eyes: No Pain, No Vision change, No Conjunctivae inflammation, No Eyelid inflammation, No Other, No Redness ENT: No Ear pain, No Ear discharge, No Nose pain, No Nose discharge, No Nose congestion, No Mouth pain, No Mouth swelling, No Throat pain, No Throat swelling, No Other Cardiovascular: Chest Pain; No Palpitations, No Orthopnea, No Paroxysmal Noc. Dyspnea, No Edema, No Lt Headedness, No Other Respiratory: No Cough, No Dry; Shortness of breath; No SOB with excertion, No Wheezing, No Hemoptysis, No Pleuritic Pain, No Sputum, No Other Gastrointestinal: No Nausea, No Vomiting, No Abdominal Pain, No Diarrhea, No Constipation, No Melena, No Hematochezia, No Other Genitourinary: No Dysuria, No Frequency, No Incontinence, No Hematuria, No Retention, No Other Musculoskeletal: No other, No neck pain, No shoulder pain, No arm pain, No back pain, No hand pain, No leg pain, No foot pain Skin: No Rash, No Lesions, No Jaundice, No Bruising, No Other Objective Vitals Vital Signs Date Time Temp Pulse Resp B/P (MAP) Pulse Ox O2 Delivery O2 Flow Rate FiO2 01/04/25 09:48 96 Nasal Cannula 2.0 01/04/25 09:48 28 01/04/25 08:00 64 01/03/25 19:30 20 103/53 01/03/25 19:30 98.2 98.2 Exam HEENT pupils are reactive Neck is supple CV is S1-S2 regular rate and rhythm Respiratory bilateral clear GI positive bowel sound Extremity no edema 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 Medications Current Medications Medications Dose Ordered Sig/Asha Route Start Time Stop Time Status Last Admin Dose Admin Ascorbic Acid 500 mg BID PO 01/03/25 22:00 01/04/25 12:17 500 MG Aspirin 81 mg DAILY PO 01/04/25 10:00 01/04/25 12:16 81 MG Atorvastatin Calcium 40 mg HS PO 01/03/25 22:00 01/04/25 00:30 40 MG Clopidogrel Bisulfate 75 mg DAILY PO 01/04/25 10:00 01/04/25 12:15 75 MG Duloxetine HCl 30 mg DAILY PO 01/04/25 10:00 01/04/25 12:16 30 MG Multivitamins 1 tab DAILY PO 01/04/25 10:00 01/04/25 12:15 1 TAB Oxybutynin Chloride 5 mg Q8HR PO 01/03/25 14:00 01/04/25 07:08 5 MG Pantoprazole Sodium 40 mg DAILY@0700 PO 01/04/25 07:00 01/04/25 07:08 40 MG Polyethylene Glycol 17 gm DAILY PRN PO 01/03/25 13:00 Spironolactone 25 mg DAILY PO 01/04/25 10:00 Cholecalciferol 2,000 unit BID PO 01/03/25 22:00 01/04/25 12:16 2,000 UNIT Fluoxetine HCl 20 mg DAILY PO 01/04/25 10:00 01/04/25 12:15 20 MG Patient Own Medication 1 puff BID IN 01/03/25 22:00 Metoprolol Succinate 25 mg DAILY PO 01/04/25 10:00 Morphine Sulfate 2 mg Q30MP PRN IV 01/03/25 13:00 01/03/25 16:41 2 MG Acetaminophen 325 mg Q4HP PRN PO 01/03/25 13:00 01/04/25 12:16 325 MG Docusate Sodium 100 mg DAILY PO 01/04/25 10:00 01/04/25 12:15 100 MG Nitroglycerin 0.4 mg Q5MINP PRN SL 01/03/25 13:00 Ondansetron HCl 4 mg Q4HP PRN IV 01/03/25 13:00 01/04/25 00:50 4 MG Albuterol 2.5 mg Q4HPRN PRN NEB 01/03/25 16:45 Ipratropium [place] 0.5 mg Q4HPRN PRN NEB 01/03/25 16:45 Levofloxacin 50 ml @ 50 mls/hr DAILY IV 01/04/25 10:00 Hold Ranolazine 500 mg BID@0000,1200 PO 01/04/25 00:00 01/04/25 12:16 500 MG Sacubitril/ Valsartan 1 tab BID PO 01/04/25 10:00 01/04/25 12:15 1 TAB Amiodarone HCl 100 mg HS PO 01/04/25 22:00 Laboratory Results Laboratory Tests 01/04/25 04:48 Chemistry Test 01/04/25 04:48 Albumin 3.9 g/dL (3.2-4.8) Calcium Level 8.9 mg/dL (8.7-10.4) Total Protein 5.6 g/dL (5.7-8.2) L LFT Test 01/04/25 04:48 Alanine Aminotransferase (ALT) < 9 U/L (7-40) Alkaline Phosphatase 57 U/L (46-116) Aspartate Amino Transferase (AST) 18 U/L (13-40) Total Bilirubin 0.8 mg/dL (0.2-1.0) Urinalysis Test 01/04/25 06:00 Urine Color Yellow (Yellow) Urine Clarity Turbid (Clear) H Urine pH 5.5 (5.0-9.0) Urine Specific [place] 1.023 (1.001-1.035) Urine Protein Trace (Negative) H Urine Ketones Negative (Negative) Urine Blood Negative /uL (Negative) Urine Nitrite 1+ (Negative) H Urine Bilirubin Negative (Negative) Urine Urobilinogen Normal mg/dL (Negative) Urine Leukocyte Esterase 3+ /uL (Negative) Urine Glucose Normal mg/dL (Normal) Assessment/Plan Assessment/Plan 79-year-old female with a known history of CAD status post CABG, status post PCI, emphysema, chronic respiratory failure on home O2, ischemic cardiomyopathy, systolic congestive heart failure, biventricular ICD presented to the hospital with a lower abdominal pain and dysuria found to have 1. UTI 2. Known CAD status post CABG, status post PCI 3. Chronic respiratory failure on home O2 4. Emphysema/COPD currently not in exacerbation 4. Status post biventricular ICD 5. Ischemic cardiomyopathy with EF of 10% -IV antibiotics, follow up urine culture, follow up Cardiology recommendation -PT evaluation and treatment. Plan discussed with: Patient, Other Date of Service: Jan 04, 2025 Billing Provider: MARGA LALA MD Common Visit Codes: [id number] INP/OBS CARE(MOD) MARGA LALA MD Jan 04, 2025 15:27
[2025-01-04] MEDS: ALBUTEROL SULF 2.5 MG/0.5ML(0.5%) NEB SOLN NEB PRN (19:40)
[2025-01-04] MEDS: IPRATROPIUM BROM 0.5 MG/2.5ML INH SOL NEB PRN (19:40)
[2025-01-04] MEDS: NOREPINEPHRINE 8 MG/250ML KIT 250 ML IV SCH (21:51)
[2025-01-04] MEDS: AMIODARONE HCL 200 MG TAB PO SCH (22:43)
[2025-01-05] VITALS (24 sets, daily range): BP systolic 86–115; BP diastolic 41–64; PULSE 60–80; RESP 10–20; TEMP 97.8–98.2; O2SAT 97–100
--- NOTE | 2025-01-05 08:00 | DVHPN2 ---
Progress Note - Dictate Date Seen: Jan 05, 2025 Medical Necessity Reason Pt with a Central, PICC or Fol: No vital signs Vital Sign Date Time Temp Pulse Resp B/P (MAP) Pulse Ox O2 Delivery O2 Flow Rate FiO2 01/05/25 07:00 112/55 01/05/25 07:00 65 15 98 01/04/25 23:30 97.9 97.9 01/04/25 23:00 Room Air* 0 21 medications Current Medications Medications Dose Ordered Sig/Asha Route Start Time Stop Time Status Last Admin Dose Admin Ascorbic Acid 500 mg BID PO 01/03/25 22:00 01/04/25 22:43 500 MG Aspirin 81 mg DAILY PO 01/04/25 10:00 01/04/25 12:16 81 MG Atorvastatin Calcium 40 mg HS PO 01/03/25 22:00 01/04/25 22:44 40 MG Clopidogrel Bisulfate 75 mg DAILY PO 01/04/25 10:00 01/04/25 12:15 75 MG Duloxetine HCl 30 mg DAILY PO 01/04/25 10:00 01/04/25 12:16 30 MG Multivitamins 1 tab DAILY PO 01/04/25 10:00 01/04/25 12:15 1 TAB Oxybutynin Chloride 5 mg Q8HR PO 01/03/25 14:00 01/05/25 05:44 5 MG Pantoprazole Sodium 40 mg DAILY@0700 PO 01/04/25 07:00 01/04/25 07:08 40 MG Polyethylene Glycol 17 gm DAILY PRN PO 01/03/25 13:00 Spironolactone 25 mg DAILY PO 01/04/25 10:00 Cholecalciferol 2,000 unit BID PO 01/03/25 22:00 01/04/25 22:44 2,000 UNIT Fluoxetine HCl 20 mg DAILY PO 01/04/25 10:00 01/04/25 12:15 20 MG Patient Own Medication 1 puff BID IN 01/03/25 22:00 Metoprolol Succinate 25 mg DAILY PO 01/04/25 10:00 Morphine Sulfate 2 mg Q30MP PRN IV 01/03/25 13:00 01/05/25 05:45 2 MG Acetaminophen 325 mg Q4HP PRN PO 01/03/25 13:00 01/04/25 18:24 325 MG Docusate Sodium 100 mg DAILY PO 01/04/25 10:00 01/04/25 12:15 100 MG Nitroglycerin 0.4 mg Q5MINP PRN SL 01/03/25 13:00 Ondansetron HCl 4 mg Q4HP PRN IV 01/03/25 13:00 01/05/25 05:45 4 MG Albuterol 2.5 mg Q4HPRN PRN NEB 01/03/25 16:45 01/04/25 19:40 2.5 MG Ipratropium [place] 0.5 mg Q4HPRN PRN NEB 01/03/25 16:45 01/04/25 19:40 0.5 MG Levofloxacin 50 ml @ 50 mls/hr DAILY IV 01/04/25 10:00 Hold Ranolazine 500 mg BID@0000,1200 PO 01/04/25 00:00 01/05/25 00:00 500 MG Sacubitril/ Valsartan 1 tab BID PO 01/04/25 10:00 01/04/25 22:47 1 TAB Amiodarone HCl 100 mg HS PO 01/04/25 22:00 01/04/25 22:43 100 MG Norepinephrine Bitartrate 250 ml @ 3.75 mls/hr Q24H IV 01/04/25 21:30 01/04/25 21:51 3.75 MLS/HR laboratory and microbiology Laboratory Tests 01/04/25 04:48 Test 01/04/25 04:48 Range/Units Serum Glucose 73 L 74-106 mg/dL Assessment/Plan Patient is a 79-year-old female who presented to the hospital with lower abdominal pain. She mentions that she has pain while urinating. She denies any recent chest pain. Emergency room physicians had documented that the patient presented with chest pain. Patient denies any recent chest pain. Patient does have history of coronary artery disease for which has been following with us/cardiology. Patient does have history of repeated admissions for chest discomfort and also bladder problems. Cardiology is involved for cardiac aspects of care. She does have history of systolic heart failure. Serial high sensitive troponin has been negative. Lying comfortably flat in bed, no JVD, pink and wet mucosa, no carotid bruit, no goiter, lungs: Not using accessory muscles of breathing, lungs reveal scattered rhonchi, cardiac: Regular regular, no thrill/gallop, 2+murmur in apex, abdomen: Soft, no hepatomegaly, some suprapubic tenderness is positive, no rebound tenderness, extremities: No edema, dorsalis pedis is 2+ bilateral. Right femoral/groin area with no hematoma. Past medical history includes hypertension, hyperlipidemia, coronary artery disease, history of CABG (2010), systolic heart failure, ischemic cardiomyopathy, gout, kidney stone, s/p ESWL, frequent UTI, history of CVA, Diverticulosis, COPD, s/p COVID, depression, Anxiety, GERD, history of appendectomy/hysterectomy/tonsillectomy, and history of BiV ICD (Biotronik) implantation. She is chronically wheelchair-bound. She was previously in hospice for heart failure. She is allergic to codeine. She quit smoking years ago. She is DNR. She also has diagnosis of parkinsonism. Cardiac catheterization of August 26, 2024 (performed in [facility]) revealed triple-vessel [place] coronary artery disease. MAINTENANCE ADVISOR of obtuse marginal. MAINTENANCE ADVISOR of RCA. Lad with 75% lesion and status post drug-eluting stent deployment. It is of note that there is patent SVG to obtuse marginal and also patent SVG to RCA. Cardiac catheterization of September 2020 revealed ejection fraction of 20%, MAINTENANCE ADVISOR of SVG to diagonal, patent TAN, patent SVG to OM, patent SVG to PDA and MAINTENANCE ADVISOR of RCA. Echocardiogram of reported: Dilated left ventricle, LVEF of around 10%. Pacing wire was seen in the right-sided chambers. There was mild mitral regurgitation. There was trace tricuspid regurgitation. As there was no good tricuspid regurgitation jet, right ventricular systolic pressure could not be estimated. Echocardiogram of September 04, 2024 reported: Dilated left ventricle. LVEF of 10%. Increased EDP. Pacing wire in right-sided chambers. Mild mitral regurgitation. As there was no good tricuspid regurgitation jet, right ventricular systolic pressure could not be estimated Echocardiogram of August 25, 2024 (performed in [facility]) for PE old ejection fraction of 20% Echocardiogram of reported: LV EF of 15-20%, biatrial enlargement, pacing wire in the right-sided chambers. Echocardiogram of November 22, 2023 revealed: Dilated left ventricle, LVEF of 10%, pacing wire and right-sided chambers, mild mitral regurgitation. Echocardiogram of August 28, 2023 revealed: Dilated left ventricle with significantly reduced systolic function. LVEF of 20%. Elevated LVEDP, dilated four chambers. Pacing wire was seen in right-sided chamber. [id number] MR. Echocardiogram of January 03, 2023 revealed ejection fraction of 20 to 25% and mild left ventricular enlargement Echocardiogram of March 25, 2023 (performed in the office) revealed four- chamber dilatation, LVEF of 20 to 25%, mild to moderate MR, mild TR, trace pulmonary valve insufficiency and right ventricular systolic pressure of 35 mmHg Echocardiogram of March 21, 2022 revealed ejection fraction of around 20%, mild MR/TR Echocardiogram of February 17, 2021 revealed dilated LV, LVEF around 25%, severe diffuse hypokinesis, increased LVEDP, dilated left and right atria, mild to moderate MR, mild TR. Echocardiogram of December 30, 2020 reported ejection fraction less than 20% and dilated left atrium. Echocardiogram of August 2020 revealed ejection fraction less than 25%, right atrial enlargement, left atrial enlargement and moderate MR. WBC: 13.5 - 12.1 Troponin (high sensitive): 25 - 29 - 25 Magnesium: 2.2 Creatinine: 1.19 - 1.08 Potassium: 4.7 - 4.8 Chest x-ray reported: IMPRESSION: 1. No evidence of acute disease. EKG reviewed: Revealed sinus rhythm with paced ventricular rhythm Tele revealed: A sense V paced rhythm Patient is a 79-year-old female presented with lower abdominal pain. Does have history of repeated UTIs which could have contributed to the clinical picture. Patient does have baseline history of coronary artery disease and systolic heart failure. Presentation is not considered acute coronary syndrome. Cardiac-monge, the patient is compensated Serial high sensitive troponin has been negative and acute coronary syndrome is not considered. Patient is on dual antiplatelet therapy for previously implanted stent. To be kept on aspirin/Plavix. Does have baseline history of ischemic/systolic heart failure which at this point is considered compensated. She is DNR. Does complain of dysuria and has history of UTIs (not new). Was started on Levophed for hypotension. UTI Ischemic cardiomyopathy, history of Systolic CHF s/p BiV-ICD implantation Coronary artery disease, status post CABG Status post PCI Diverticular disease Renal calculi Emphysema Kidney stone, history of Coronary artery disease, SP CABG GERD Hypertension Hyperlipidemia Gout Constipation Cardiac suggestion for management: Manage on telemetry Follow-up electrolytes and kidney function tests and correct abnormalities. Keep potassium above 4 and magnesium above 2 Continue Aspirin/Plavix Continue Toprol-XL/Entresto/Aldactone/Ranolazine/Atorvastatin Keep MAP above 60 (you can use Levophed) No indication to repeat ischemic workup/echocardiogram Evaluation and management of UTI/dysuria as per primary Further evaluation and management depends on the above and clinical course A total of 75 minutes was spent reviewing the patient record, examining the patient, making a diagnostic and therapeutic plan, discussing this plan with medical personnel, following up on diagnostic studies and following the patient for clinical stability excluding any and all procedures. At least 50% of this time was spent in direct, [id number] contact. Thank you for allowing me to participate in this patient's care. Further recommendations will depend on patient's clinical course. Please do not hesitate to contact me if you have any questions or concerns. This medical document was created using electronic medical record system with [employer] computerized dictation system. Although this document has been carefully reviewed, there may still be some phonetic and typographical errors. These areas are purely typographical due to the imperfection of the software programs, and do not reflect any compromise in the patient's medical care. Plan discussed with: Patient, Other (nurse) RODRIGUEZ LEBRON MD Jan 05, 2025 08:00
--- NOTE | 2025-01-05 13:59 | DVHPN2 ---
Subjective Overnight events noted. Patient does complaining of lower abdominal pain and dysuria but denies any chest pain. Changes from previous H/P or p: No Changes Eyes: No Pain, No Vision change, No Conjunctivae inflammation, No Eyelid inflammation, No Other, No Redness ENT: No Ear pain, No Ear discharge, No Nose pain, No Nose discharge, No Nose congestion, No Mouth pain, No Mouth swelling, No Throat pain, No Throat swelling, No Other Cardiovascular: Chest Pain; No Palpitations, No Orthopnea, No Paroxysmal Noc. Dyspnea, No Edema, No Lt Headedness, No Other Respiratory: No Cough, No Dry; Shortness of breath; No SOB with excertion, No Wheezing, No Hemoptysis, No Pleuritic Pain, No Sputum, No Other Gastrointestinal: No Nausea, No Vomiting, No Abdominal Pain, No Diarrhea, No Constipation, No Melena, No Hematochezia, No Other Genitourinary: No Dysuria, No Frequency, No Incontinence, No Hematuria, No Retention, No Other Musculoskeletal: No other, No neck pain, No shoulder pain, No arm pain, No back pain, No hand pain, No leg pain, No foot pain Skin: No Rash, No Lesions, No Jaundice, No Bruising, No Other Objective Vitals Vital Signs Date Time Temp Pulse Resp B/P (MAP) Pulse Ox O2 Delivery O2 Flow Rate FiO2 01/05/25 13:00 106/55 01/05/25 12:30 70 12 98 01/05/25 11:21 Nasal Cannula* 2 28 01/04/25 23:30 97.9 97.9 Exam HEENT pupils are reactive Neck is supple CV is S1-S2 regular rate and rhythm Respiratory bilateral clear GI positive bowel sound Extremity no edema [employer] no motor deficit. Medications Current Medications Medications Dose Ordered Sig/Asha Route Start Time Stop Time Status Last Admin Dose Admin Ascorbic Acid 500 mg BID PO 01/03/25 22:00 01/05/25 09:32 500 MG Aspirin 81 mg DAILY PO 01/04/25 10:00 01/05/25 09:33 81 MG Atorvastatin Calcium 40 mg HS PO 01/03/25 22:00 01/04/25 22:44 40 MG Clopidogrel Bisulfate 75 mg DAILY PO 01/04/25 10:00 01/05/25 09:34 75 MG Duloxetine HCl 30 mg DAILY PO 01/04/25 10:00 01/05/25 09:33 30 MG Multivitamins 1 tab DAILY PO 01/04/25 10:00 01/05/25 09:34 1 TAB Oxybutynin Chloride 5 mg Q8HR PO 01/03/25 14:00 01/05/25 05:44 5 MG Pantoprazole Sodium 40 mg DAILY@0700 PO 01/04/25 07:00 01/05/25 08:05 40 MG Polyethylene Glycol 17 gm DAILY PRN PO 01/03/25 13:00 Spironolactone 25 mg DAILY PO 01/04/25 10:00 01/05/25 09:34 25 MG Cholecalciferol 2,000 unit BID PO 01/03/25 22:00 01/05/25 09:34 2,000 UNIT Fluoxetine HCl 20 mg DAILY PO 01/04/25 10:00 01/05/25 09:34 20 MG Patient Own Medication 1 puff BID IN 01/03/25 22:00 Metoprolol Succinate 25 mg DAILY PO 01/04/25 10:00 01/05/25 09:46 25 MG Morphine Sulfate 2 mg Q30MP PRN IV 01/03/25 13:00 01/05/25 05:45 2 MG Acetaminophen 325 mg Q4HP PRN PO 01/03/25 13:00 01/04/25 18:24 325 MG Docusate Sodium 100 mg DAILY PO 01/04/25 10:00 01/04/25 12:15 100 MG Nitroglycerin 0.4 mg Q5MINP PRN SL 01/03/25 13:00 Ondansetron HCl 4 mg Q4HP PRN IV 01/03/25 13:00 01/05/25 05:45 4 MG Albuterol 2.5 mg Q4HPRN PRN NEB 01/03/25 16:45 01/04/25 19:40 2.5 MG Ipratropium [place] 0.5 mg Q4HPRN PRN NEB 01/03/25 16:45 01/04/25 19:40 0.5 MG Levofloxacin 50 ml @ 50 mls/hr DAILY IV 01/04/25 10:00 Hold Ranolazine 500 mg BID@0000,1200 PO 01/04/25 00:00 01/05/25 12:13 500 MG Sacubitril/ Valsartan 1 tab BID PO 01/04/25 10:00 01/05/25 09:33 1 TAB Amiodarone HCl 100 mg HS PO 01/04/25 22:00 01/04/25 22:43 100 MG Norepinephrine Bitartrate 250 ml @ 3.75 mls/hr Q24H IV 01/04/25 21:30 01/04/25 21:51 3.75 MLS/HR Laboratory Results Laboratory Tests 01/04/25 04:48 Urinalysis Test 01/04/25 06:00 Urine Color Yellow (Yellow) Urine Clarity Turbid (Clear) H Urine pH 5.5 (5.0-9.0) Urine Specific [place] 1.023 (1.001-1.035) Urine Protein Trace (Negative) H Urine Ketones Negative (Negative) Urine Blood Negative /uL (Negative) Urine Nitrite 1+ (Negative) H Urine Bilirubin Negative (Negative) Urine Urobilinogen Normal mg/dL (Negative) Urine Leukocyte Esterase 3+ /uL (Negative) Urine Glucose Normal mg/dL (Normal) Assessment/Plan Assessment/Plan 79-year-old female with a known history of CAD status post CABG, status post PCI, emphysema, chronic respiratory failure on home O2, ischemic cardiomyopathy, systolic congestive heart failure, biventricular ICD presented to the hospital with a lower abdominal pain and dysuria found to have 1. UTI 2. Known CAD status post CABG, status post PCI 3. Chronic respiratory failure on home O2 4. Emphysema/COPD currently not in exacerbation 4. Status post biventricular ICD 5. Ischemic cardiomyopathy with EF of 10% -IV antibiotics, follow up urine culture, follow up Cardiology recommendation -PT evaluation and treatment. Plan discussed with: Patient My Orders Orders - MARGA LALA MD Procedure Category Date Status Time Urine Bacterial MELVIN 01/05/25 Logged Culture 12:00 Date of Service: Jan 05, 2025 Billing Provider: MARGA LALA MD Common Visit Codes: [id number] INP/OBS CARE(MOD) MARGA LALA MD Jan 05, 2025 13:59
[2025-01-05] MEDS: MORPHINE SULFATE INJ 2 MG/ml SYRG IV PRN (17:45)
[2025-01-05] MEDS: NOREPINEPHRINE 8 MG/250ML KIT 250 ML IV SCH (22:00)
[2025-01-05] MEDS: METOCLOPRAMIDE HCL 5MG/ml INJ 2ml VIAL IV ONE (22:15)
[2025-01-05] MEDS: KETOROLAC TROMETH 30 MG/ML 1ML VIAL IV ONE (22:16)
[2025-01-06] VITALS (95 sets, daily range): BP systolic 82–156; BP diastolic 20–84; PULSE 60–86; RESP 11–24; TEMP 98–99.2; O2SAT 69–99
[2025-01-06 03:25] LABS: Hematocrit 42.5 % (36.0-46.0); Hemoglobin 14.1 g/dL (12.2-16.2); Mean Corpuscular Hemoglobin 30.1 pg (28.0-32.0); Mean Corpuscular Volume 90.6 fL (80.0-100.0); Nucleated Red Blood Cells % 0.2 %
[2025-01-06 03:44] LABS: Albumin 4.0 g/dL (3.2-4.8); Alkaline Phosphatase 57 U/L (46-116); Anion Gap 10 (5-15); BUN/Creatinine Ratio 15.1 (10.0-20.0); Blood Urea Nitrogen 21 mg/dL (9-23); Calcium 9.2 mg/dL (8.7-10.4); Carbon Dioxide 23 mmol/L (20-31); Potassium 4.7 mmol/L (3.5-5.1); Sodium 141 mmol/L (136-145); Total Protein 5.8 g/dL (5.7-8.2)
[2025-01-06 03:45] LABS: Bilirubin, Total 0.3 mg/dL (0.2-1.0)
[2025-01-06 03:58] LABS: Alanine Aminotransferase 9 U/L (7-40); Chloride 108 mmol/L (98-107); Glucose 128 mg/dL (74-106)
--- NOTE | 2025-01-06 04:51 | DVH ---
EXAM: XY CHEST PORTABLE DATE OF SERVICE: 01/06/2025 04:34 AM INDICATION: RESP FAILURE TECHNIQUE: Single frontal view. COMPARISON: XY CHEST PORTABLE on DOS: 01/03/25, XY CHEST PORTABLE on DOS: 12/19/24, XY CHEST XRAY 1 VIE W on DOS: 11/30/24, XY CHEST XRAY 1 VIEW on DOS: 11/09/24, XY CHEST PORTABLE on DOS: 10/20/24 FINDINGS: No focal consolidations. Mild pulmonary vascular congestion. No pleural effusion or pneumothorax. Moderate cardiomegaly. Left chest pacer. Median sternotomy wires. IMPRESSION: 1. Mild pulmonary vascular congestion. Moderate cardiomegaly. 2. No focal consolidations.
--- NOTE | 2025-01-06 06:51 | DVHPN2 ---
Progress Note - Dictate Date Seen: Jan 06, 2025 Medical Necessity Reason Pt with a Central, PICC or Fol: No vital signs Vital Sign Date Time Temp Pulse Resp B/P (MAP) Pulse Ox O2 Delivery O2 Flow Rate FiO2 01/06/25 06:43 70 16 113/53 01/06/25 05:01 98 01/06/25 04:00 99.2 99.2 01/06/25 04:00 Nasal Cannula* 2 28 Total Intake and Output 01/05/25 01/05/25 01/06/25 15:00 23:00 07:00 Intake Total 78.125 ml 30.00 ml Output Total 450 ml Balance -371.875 ml 30.00 ml medications Current Medications Medications Dose Ordered Sig/Asha Route Start Time Stop Time Status Last Admin Dose Admin Ascorbic Acid 500 mg BID PO 01/03/25 22:00 01/05/25 21:47 500 MG Aspirin 81 mg DAILY PO 01/04/25 10:00 01/05/25 09:33 81 MG Atorvastatin Calcium 40 mg HS PO 01/03/25 22:00 01/05/25 21:47 40 MG Clopidogrel Bisulfate 75 mg DAILY PO 01/04/25 10:00 01/05/25 09:34 75 MG Duloxetine HCl 30 mg DAILY PO 01/04/25 10:00 01/05/25 09:33 30 MG Multivitamins 1 tab DAILY PO 01/04/25 10:00 01/05/25 09:34 1 TAB Oxybutynin Chloride 5 mg Q8HR PO 01/03/25 14:00 01/06/25 06:42 5 MG Pantoprazole Sodium 40 mg DAILY@0700 PO 01/04/25 07:00 01/06/25 06:42 40 MG Polyethylene Glycol 17 gm DAILY PRN PO 01/03/25 13:00 Spironolactone 25 mg DAILY PO 01/04/25 10:00 01/05/25 09:34 25 MG Cholecalciferol 2,000 unit BID PO 01/03/25 22:00 01/05/25 21:47 2,000 UNIT Fluoxetine HCl 20 mg DAILY PO 01/04/25 10:00 01/05/25 09:34 20 MG Patient Own Medication 1 puff BID IN 01/03/25 22:00 Metoprolol Succinate 25 mg DAILY PO 01/04/25 10:00 Hold 01/05/25 09:46 25 MG Morphine Sulfate 2 mg Q30MP PRN IV 01/03/25 13:00 01/05/25 05:45 2 MG Acetaminophen 325 mg Q4HP PRN PO 01/03/25 13:00 01/05/25 16:49 325 MG Docusate Sodium 100 mg DAILY PO 01/04/25 10:00 01/04/25 12:15 100 MG Nitroglycerin 0.4 mg Q5MINP PRN SL 01/03/25 13:00 Ondansetron HCl 4 mg Q4HP PRN IV 01/03/25 13:00 01/05/25 05:45 4 MG Albuterol 2.5 mg Q4HPRN PRN NEB 01/03/25 16:45 01/05/25 21:12 2.5 MG Ipratropium [place] 0.5 mg Q4HPRN PRN NEB 01/03/25 16:45 01/05/25 21:12 0.5 MG Levofloxacin 50 ml @ 50 mls/hr DAILY IV 01/04/25 10:00 Hold Ranolazine 500 mg BID@0000,1200 PO 01/04/25 00:00 01/05/25 23:58 500 MG Sacubitril/ Valsartan 1 tab BID PO 01/04/25 10:00 01/05/25 09:33 1 TAB Amiodarone HCl 100 mg HS PO 01/04/25 22:00 01/05/25 21:46 100 MG Morphine Sulfate 2 mg Q6HPRN PRN IV 01/05/25 17:45 01/06/25 06:43 2 MG Norepinephrine Bitartrate 250 ml @ 1.875 mls/ hr Q24H IV 01/05/25 22:00 Albuterol 2.5 mg Q4HR NEB 01/06/25 10:00 Ipratropium [place] 0.5 mg Q4HR NEB 01/06/25 10:00 laboratory and microbiology Laboratory Tests 01/06/25 02:35 Test 01/06/25 02:35 Range/Units Serum Glucose 128 H 74-106 mg/dL Assessment/Plan Patient is a 79-year-old female who presented to the hospital with lower abdominal pain. She mentions that she has pain while urinating. She denies any recent chest pain. Emergency room physicians had documented that the patient presented with chest pain. Patient denies any recent chest pain. Patient does have history of coronary artery disease for which has been following with us/cardiology. Patient does have history of repeated admissions for chest discomfort and also bladder problems. Cardiology is involved for cardiac aspects of care. She does have history of systolic heart failure. Serial high sensitive troponin has been negative. Lying comfortably flat in bed, no JVD, pink and wet mucosa, no carotid bruit, no goiter, lungs: Not using accessory muscles of breathing, lungs reveal scattered rhonchi, cardiac: Regular regular, no thrill/gallop, 2+murmur in apex, abdomen: Soft, no hepatomegaly, some suprapubic tenderness is positive, no rebound tenderness, extremities: No edema, dorsalis pedis is 2+ bilateral. Right femoral/groin area with no hematoma. Past medical history includes hypertension, hyperlipidemia, coronary artery disease, history of CABG (2010), systolic heart failure, ischemic cardiomyopathy, gout, kidney stone, s/p ESWL, frequent UTI, history of CVA, Diverticulosis, COPD, s/p COVID, depression, Anxiety, GERD, history of appendectomy/hysterectomy/tonsillectomy, and history of BiV ICD (Biotronik) implantation. She is chronically wheelchair-bound. She was previously in hospice for heart failure. She is allergic to codeine. She quit smoking years ago. She is DNR. She also has diagnosis of parkinsonism. Cardiac catheterization of August 26, 2024 (performed in [facility]) revealed triple-vessel benton coronary artery disease. [employer] of obtuse marginal. [employer] OFFICER of RCA. Lad with 75% lesion and status post drug-eluting stent deployment. It is of note that there is patent SVG to obtuse marginal and also patent SVG to RCA. Cardiac catheterization of September 2020 revealed ejection fraction of 20%, [employer] OFFICER of SVG to diagonal, patent TAN, patent SVG to OM, patent SVG to PDA and [employer] OFFICER of RCA. Echocardiogram of reported: Dilated left ventricle, LVEF of around 10%. Pacing wire was seen in the right-sided chambers. There was mild mitral regurgitation. There was trace tricuspid regurgitation. As there was no good tricuspid regurgitation jet, right ventricular systolic pressure could not be estimated. Echocardiogram of September 04, 2024 reported: Dilated left ventricle. LVEF of 10%. Increased EDP. Pacing wire in right-sided chambers. Mild mitral regurgitation. As there was no good tricuspid regurgitation jet, right ventricular systolic pressure could not be estimated Echocardiogram of August 25, 2024 (performed in [facility]) for PE old ejection fraction of 20% Echocardiogram of reported: LV EF of 15-20%, biatrial enlargement, pacing wire in the right-sided chambers. Echocardiogram of November 22, 2023 revealed: Dilated left ventricle, LVEF of 10%, pacing wire and right-sided chambers, mild mitral regurgitation. Echocardiogram of August 28, 2023 revealed: Dilated left ventricle with significantly reduced systolic function. LVEF of 20%. Elevated LVEDP, dilated four chambers. Pacing wire was seen in right-sided chamber. [id number] MR. Echocardiogram of January 03, 2023 revealed ejection fraction of 20 to 25% and mild left ventricular enlargement Echocardiogram of March 25, 2023 (performed in the office) revealed four- chamber dilatation, LVEF of 20 to 25%, mild to moderate MR, mild TR, trace pulmonary valve insufficiency and right ventricular systolic pressure of 35 mmHg Echocardiogram of March 21, 2022 revealed ejection fraction of around 20%, mild MR/TR Echocardiogram of February 17, 2021 revealed dilated LV, LVEF around 25%, severe diffuse hypokinesis, increased LVEDP, dilated left and right atria, mild to moderate MR, mild TR. Echocardiogram of December 30, 2020 reported ejection fraction less than 20% and dilated left atrium. Echocardiogram of August 2020 revealed ejection fraction less than 25%, right atrial enlargement, left atrial enlargement and moderate MR. WBC: 13.5 - 12.1 - 8.7 Troponin (high sensitive): 25 - 29 - 25 Magnesium: 2.2 - Creatinine: 1.19 - 1.08 - 1.39 Potassium: 4.7 - 4.8 - 4.7 Chest x-ray reported: IMPRESSION: 1. No evidence of acute disease. Repeat chest xry revealed: IMPRESSION: 1. Mild pulmonary vascular congestion. Moderate cardiomegaly. 2. No focal consolidations. EKG reviewed: Revealed sinus rhythm with paced ventricular rhythm Tele revealed: A sense V paced rhythm Patient is a 79-year-old female presented with lower abdominal pain. Does have history of repeated UTIs which could have contributed to the clinical picture. Patient does have baseline history of coronary artery disease and systolic heart failure. Presentation is not considered acute coronary syndrome. Cardiac-monge, the patient is compensated Serial high sensitive troponin has been negative and acute coronary syndrome is not considered. Patient is on dual antiplatelet therapy for previously implanted stent. To be kept on aspirin/Plavix. Does have baseline history of ischemic/systolic heart failure which at this point is considered compensated. She is DNR. Does complain of dysuria and has history of UTIs (not new). Was started on Levophed for hypotension. UTI Ischemic cardiomyopathy, history of Systolic CHF s/p BiV-ICD implantation Coronary artery disease, status post CABG Status post PCI Diverticular disease Renal calculi Emphysema Kidney stone, history of Coronary artery disease, SP CABG GERD Hypertension Hyperlipidemia Gout Constipation Cardiac suggestion for management: Manage on telemetry Follow-up electrolytes and kidney function tests and correct abnormalities. Keep potassium above 4 and magnesium above 2 Continue Aspirin/Plavix Continue Toprol-XL/Entresto/Aldactone/Ranolazine/Atorvastatin Keep MAP above 60 (you can use Levophed) No indication to repeat ischemic workup/echocardiogram Evaluation and management of UTI/dysuria as per primary Further evaluation and management depends on the above and clinical course A total of 75 minutes was spent reviewing the patient record, examining the patient, making a diagnostic and therapeutic plan, discussing this plan with medical personnel, following up on diagnostic studies and following the patient for clinical stability excluding any and all procedures. At least 50% of this time was spent in direct, [id number] contact. Thank you for allowing me to participate in this patient's care. Further recommendations will depend on patient's clinical course. Please do not hesitate to contact me if you have any questions or concerns. This medical document was created using electronic medical record system with [employer] dictation system. Although this document has been carefully reviewed, there may still be some phonetic and typographical errors. These areas are purely typographical due to the imperfection of the software programs, and do not reflect any compromise in the patient's medical care. Plan discussed with: Patient, Other (nurse) RODRIGUEZ LEBRON MD Jan 06, 2025 06:51
[2025-01-06] MEDS: IPRATROPIUM BROM 0.5 MG/2.5ML INH SOL NEB SCH (09:25)
[2025-01-06] MEDS: ALBUTEROL SULF 2.5 MG/0.5ML(0.5%) NEB SOLN NEB SCH (09:26)
[2025-01-06] MEDS: MORPHINE SULFATE INJ 2 MG/ml SYRG IV PRN (11:24)
--- NOTE | 2025-01-06 15:12 | DVHPN2 ---
Subjective Overnight events noted. Patient was upgraded to ICU as patient is currently on Levophed. Changes from previous H/P or p: No Changes Eyes: No Pain, No Vision change, No Conjunctivae inflammation, No Eyelid inflammation, No Other, No Redness ENT: No Ear pain, No Ear discharge, No Nose pain, No Nose discharge, No Nose congestion, No Mouth pain, No Mouth swelling, No Throat pain, No Throat swelling, No Other Cardiovascular: Chest Pain; No Palpitations, No Orthopnea, No Paroxysmal Noc. Dyspnea, No Edema, No Lt Headedness, No Other Respiratory: No Cough, No Dry; Shortness of breath; No SOB with excertion, No Wheezing, No Hemoptysis, No Pleuritic Pain, No Sputum, No Other Gastrointestinal: No Nausea, No Vomiting, No Abdominal Pain, No Diarrhea, No Constipation, No Melena, No Hematochezia, No Other Genitourinary: No Dysuria, No Frequency, No Incontinence, No Hematuria, No Retention, No Other Musculoskeletal: No other, No neck pain, No shoulder pain, No arm pain, No back pain, No hand pain, No leg pain, No foot pain Skin: No Rash, No Lesions, No Jaundice, No Bruising, No Other Objective Vitals Vital Signs Date Time Temp Pulse Resp B/P (MAP) Pulse Ox O2 Delivery O2 Flow Rate FiO2 01/06/25 14:00 18 98 Nasal Cannula* 2 28 01/06/25 14:00 79 01/06/25 11:54 111/56 01/06/25 04:00 99.2 99.2 Intake/Output Intake and Output 01/06/25 07:00 Intake Total 396.875 ml Output Total 700 ml Balance -303.125 ml Intake Oral 290 ml IV Total 106.875 ml Output Urine Total 700 ml Stool Total 0 ml Exam HEENT pupils are reactive Neck is supple CV is S1-S2 regular rate and rhythm Respiratory bilateral clear GI positive bowel sound Extremity no edema 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 Medications Current Medications Medications Dose Ordered Sig/Asha Route Start Time Stop Time Status Last Admin Dose Admin Ascorbic Acid 500 mg BID PO 01/03/25 22:00 01/06/25 10:12 500 MG Aspirin 81 mg DAILY PO 01/04/25 10:00 01/06/25 10:13 81 MG Atorvastatin Calcium 40 mg HS PO 01/03/25 22:00 01/05/25 21:47 40 MG Clopidogrel Bisulfate 75 mg DAILY PO 01/04/25 10:00 01/06/25 10:13 75 MG Duloxetine HCl 30 mg DAILY PO 01/04/25 10:00 01/06/25 10:13 30 MG Multivitamins 1 tab DAILY PO 01/04/25 10:00 01/06/25 10:13 1 TAB Oxybutynin Chloride 5 mg Q8HR PO 01/03/25 14:00 01/06/25 12:52 5 MG Pantoprazole Sodium 40 mg DAILY@0700 PO 01/04/25 07:00 01/06/25 06:42 40 MG Polyethylene Glycol 17 gm DAILY PRN PO 01/03/25 13:00 Spironolactone 25 mg DAILY PO 01/04/25 10:00 01/06/25 10:13 25 MG Cholecalciferol 2,000 unit BID PO 01/03/25 22:00 01/06/25 10:12 2,000 UNIT Fluoxetine HCl 20 mg DAILY PO 01/04/25 10:00 01/06/25 10:13 20 MG Patient Own Medication 1 puff BID IN 01/03/25 22:00 Metoprolol Succinate 25 mg DAILY PO 01/04/25 10:00 Hold 01/05/25 09:46 25 MG Morphine Sulfate 2 mg Q30MP PRN IV 01/03/25 13:00 01/05/25 05:45 2 MG Acetaminophen 325 mg Q4HP PRN PO 01/03/25 13:00 01/06/25 10:18 325 MG Docusate Sodium 100 mg DAILY PO 01/04/25 10:00 01/06/25 10:12 100 MG Nitroglycerin 0.4 mg Q5MINP PRN SL 01/03/25 13:00 Ondansetron HCl 4 mg Q4HP PRN IV 01/03/25 13:00 01/05/25 05:45 4 MG Albuterol 2.5 mg Q4HPRN PRN NEB 01/03/25 16:45 01/05/25 21:12 2.5 MG Ipratropium [place] 0.5 mg Q4HPRN PRN NEB 01/03/25 16:45 01/05/25 21:12 0.5 MG Levofloxacin 50 ml @ 50 mls/hr DAILY IV 01/04/25 10:00 Hold Ranolazine 500 mg BID@0000,1200 PO 01/04/25 00:00 01/06/25 12:52 500 MG Sacubitril/ Valsartan 1 tab BID PO 01/04/25 10:00 01/05/25 09:33 1 TAB Amiodarone HCl 100 mg HS PO 01/04/25 22:00 01/05/25 21:46 100 MG Norepinephrine Bitartrate 250 ml @ 1.875 mls/ hr Q24H IV 01/05/25 22:00 Albuterol 2.5 mg Q4HR NEB 01/06/25 10:00 01/06/25 13:42 2.5 MG Ipratropium [place] 0.5 mg Q4HR NEB 01/06/25 10:00 01/06/25 13:42 0.5 MG Morphine Sulfate 2 mg Q4HP PRN IV 01/06/25 11:15 01/06/25 11:24 2 MG Laboratory Results Laboratory Tests 01/06/25 02:35 Chemistry Test 01/06/25 02:35 Albumin 4.0 g/dL (3.2-4.8) Calcium Level 9.2 mg/dL (8.7-10.4) Total Protein 5.8 g/dL (5.7-8.2) LFT Test 01/06/25 02:35 Alanine Aminotransferase (ALT) 9 U/L (7-40) Alkaline Phosphatase 57 U/L (46-116) Aspartate Amino Transferase (AST) 17 U/L (13-40) Total Bilirubin 0.3 mg/dL (0.2-1.0) Urinalysis Test 01/04/25 06:00 Urine Color Yellow (Yellow) Urine Clarity Turbid (Clear) H Urine pH 5.5 (5.0-9.0) Urine Specific [place]an 1.023 (1.001-1.035) Urine Protein Trace (Negative) H Urine Ketones Negative (Negative) Urine Blood Negative /uL (Negative) Urine Nitrite 1+ (Negative) H Urine Bilirubin Negative (Negative) Urine Urobilinogen Normal mg/dL (Negative) Urine Leukocyte Esterase 3+ /uL (Negative) Urine Glucose Normal mg/dL (Normal) Microbiology Microbiology Date/Time Source Procedure Growth Status 01/05/25 22:00 Nose MRSA Screen - Final Complete 01/05/25 20:10 Voided Urine Urine Culture - Preliminary Resulted Assessment/Plan Assessment/Plan 79-year-old female with a known history of CAD status post CABG, status post PCI, emphysema, chronic respiratory failure on home O2, ischemic cardiomyopathy, systolic congestive heart failure, biventricular ICD presented to the hospital with a lower abdominal pain and dysuria found to have 1. Relative hypotension with a history of hypertension, hold BP meds 2. Known CAD status post CABG, status post PCI 3. Chronic respiratory failure on home O2 4. Emphysema/COPD currently not in exacerbation 4. Status post biventricular ICD 5. Ischemic cardiomyopathy with EF of 10% 6. Urinary tract infection -titrate Levophed -IV antibiotics, follow up urine culture, follow up Cardiology recommendation -PT evaluation and treatment. Plan discussed with: Patient My Orders Orders - MARGA LALA MD Procedure Category Date Status Time Code Status CODE 01/05/25 Transmitted 19:10 * Scale Balancer CONS 01/05/25 Transmitted Consult Chest Portable XY 01/06/25 Resulted 04:00 Morphine Sulfate PHA 01/06/25 In Process Injection 11:15 Date of Service: Jan 06, 2025 Billing Provider: MARGA LALA MD Common Visit Codes: [id number] INP/OBS CARE(MOD), [id number] INP/OBS CARE(HIGH) MARGA LALA MD Jan 06, 2025 15:12
[2025-01-06] MEDS: NOREPINEPHRINE 8 MG/250ML KIT 250 ML IV SCH (17:00)
[2025-01-07] VITALS (93 sets, daily range): BP systolic 84–144; BP diastolic 32–74; PULSE 61–97; RESP 10–22; TEMP 97.8–98; O2SAT 87–100
--- NOTE | 2025-01-07 04:44 | DVH ---
Exam: CT CT AB PEL WO CON-NO ORAL OR IV History: flank pain Comparison Study: CT CT AB PEL WO CON-NO ORAL OR IV on DOS: 12/19/24 Technique: Multidetector spiral CT of the abdomen and pelvis was performed from lung bases to pubic s ymphysis. Imaging was performed without intravenous contrast. Coronal and sagittal multiplanar reform ats were obtained from the axial data set by the technologist. Radiation Dose : 1. Abdomen/Pelvis: CTDIvol 8.97 mGy, DLP 3.92 mGy*cm. Findings: Evaluation of vasculature and solid organs is limited due to lack of intravenous contrast use. Lung Bases: Lung bases are clear. The heart is normal in size. Coronary artery calcifications. No per icardial effusion. Liver: The liver is normal in size. No focal lesions. Gallbladder and Biliary Tree: The gallbladder is unremarkable. No intrahepatic or extrahepatic biliar y ductal dilatation. Spleen: Unremarkable Pancreas: The pancreas is grossly unremarkable. Adrenal Glands: Unremarkable Kidneys: Nonobstructive left intrarenal calculus measuring 0.3 cm. No hydronephrosis. There is a 5 mm hyperdense lesion in the upper pole of the left kidney representing a proteinaceous or hemorrhagic c yst. GI tract: The stomach is grossly normal in appearance. No evidence of small bowel wall thickening or abnormal dilatation to suggest bowel obstruction. The colon is unremarkable. The appendix is not visu alized, however no inflammatory changes in the right lower quadrant to suggest acute appendicitis. Peritoneum/mesentery/retroperitoneum. No evidence of free intraperitoneal air. No ascites. No evidenc e of suspicious lymphadenopathy. Abdominal Wall: Unremarkable. Vasculature: The visualized abdominal aorta is normal in size and caliber. Evaluation of abdominal a nd pelvic vessels is limited due to lack of intravenous contrast. There are atherosclerotic calcifica tions in the aorta. Urinary Bladder: Urinary bladder is under distended. There is a Joshi catheter in the urinary bladder . Pelvic Organs: Clips in the left hemipelvis. Hysterectomy. Musculoskeletal: No aggressive focal bony lesions, acute fractures or dislocation. Multilevel thoraci c spondylosis. IMPRESSION: 1. No acute abdominal or pelvic findings. 2. Nonobstructive left nephrolithiasis measuring 0.3 cm.
[2025-01-07 04:47] LABS: Hematocrit 39.9 % (36.0-46.0); Hemoglobin 13.2 g/dL (12.2-16.2); Mean Corpuscular Hemoglobin 30.2 pg (28.0-32.0); Mean Corpuscular Volume 91.3 fL (80.0-100.0); Nucleated Red Blood Cells % 0.0 %
[2025-01-07 05:02] LABS: Albumin 3.8 g/dL (3.2-4.8); Alkaline Phosphatase 55 U/L (46-116); Anion Gap 9 (5-15); BUN/Creatinine Ratio 21.8 (10.0-20.0); Bilirubin, Total 0.3 mg/dL (0.2-1.0); Calcium 9.2 mg/dL (8.7-10.4); Carbon Dioxide 24 mmol/L (20-31); Magnesium 2.0 mg/dL (1.6-2.6); Potassium 4.8 mmol/L (3.5-5.1); Sodium 140 mmol/L (136-145)
[2025-01-07 05:07] LABS: Alanine Aminotransferase < 9 U/L (7-40); Blood Urea Nitrogen 26 mg/dL (9-23); Chloride 107 mmol/L (98-107); Glucose 108 mg/dL (74-106); Total Protein 5.5 g/dL (5.7-8.2)
--- NOTE | 2025-01-07 05:34 | DVH ---
CHEST RADIOGRAPH Indication: resp distress Technique: Single frontal view of the chest was obtained Comparison: XY CHEST PORTABLE on DOS: 01/06/25 FINDINGS: Lines and Tubes: AICD/ pacemaker noted. Lungs: No focal consolidation. Pleura: Small left pleural effusion. No pneumothorax. Cardiomediastinal contours: Unremarkable. Bones: No acute osseous abnormality. Status post median sternotomy. IMPRESSION: 1. Small left pleural effusion.
--- NOTE | 2025-01-07 08:53 | DVHPN2 ---
Progress Note - Dictate Date Seen: Jan 07, 2025 Medical Necessity Reason Pt with a Central, PICC or Fol: No vital signs Vital Sign Date Time Temp Pulse Resp B/P (MAP) Pulse Ox O2 Delivery O2 Flow Rate FiO2 01/07/25 08:45 68 19 104/46 (65) 98 01/07/25 08:00 Nasal Cannula* 2 28 01/07/25 07:45 97.9 97.9 Total Intake and Output 01/06/25 01/06/25 01/07/25 15:00 23:00 07:00 Intake Total 502.250 ml 575.376 ml 260.626 ml Output Total 200 ml 300 ml Balance 502.250 ml 375.376 ml -39.374 ml medications Current Medications Medications Dose Ordered Sig/Asha Route Start Time Stop Time Status Last Admin Dose Admin Ascorbic Acid 500 mg BID PO 01/03/25 22:00 01/06/25 22:00 500 MG Aspirin 81 mg DAILY PO 01/04/25 10:00 01/06/25 10:13 81 MG Atorvastatin Calcium 40 mg HS PO 01/03/25 22:00 01/06/25 22:00 40 MG Clopidogrel Bisulfate 75 mg DAILY PO 01/04/25 10:00 01/06/25 10:13 75 MG Duloxetine HCl 30 mg DAILY PO 01/04/25 10:00 01/06/25 10:13 30 MG Multivitamins 1 tab DAILY PO 01/04/25 10:00 01/06/25 10:13 1 TAB Oxybutynin Chloride 5 mg Q8HR PO 01/03/25 14:00 01/07/25 06:48 5 MG Pantoprazole Sodium 40 mg DAILY@0700 PO 01/04/25 07:00 01/07/25 06:48 40 MG Polyethylene Glycol 17 gm DAILY PRN PO 01/03/25 13:00 Spironolactone 25 mg DAILY PO 01/04/25 10:00 01/06/25 10:13 25 MG Cholecalciferol 2,000 unit BID PO 01/03/25 22:00 01/06/25 22:00 2,000 UNIT Fluoxetine HCl 20 mg DAILY PO 01/04/25 10:00 01/06/25 10:13 20 MG Patient Own Medication 1 puff BID IN 01/03/25 22:00 Metoprolol Succinate 25 mg DAILY PO 01/04/25 10:00 Hold 01/05/25 09:46 25 MG Morphine Sulfate 2 mg Q30MP PRN IV 01/03/25 13:00 01/05/25 05:45 2 MG Acetaminophen 325 mg Q4HP PRN PO 01/03/25 13:00 01/06/25 10:18 325 MG Docusate Sodium 100 mg DAILY PO 01/04/25 10:00 01/06/25 10:12 100 MG Nitroglycerin 0.4 mg Q5MINP PRN SL 01/03/25 13:00 Ondansetron HCl 4 mg Q4HP PRN IV 01/03/25 13:00 01/07/25 08:17 4 MG Albuterol 2.5 mg Q4HPRN PRN NEB 01/03/25 16:45 01/05/25 21:12 2.5 MG Ipratropium Ida 0.5 mg Q4HPRN PRN NEB 01/03/25 16:45 01/05/25 21:12 0.5 MG Levofloxacin 50 ml @ 50 mls/hr DAILY IV 01/04/25 10:00 Hold Ranolazine 500 mg BID@0000,1200 PO 01/04/25 00:00 01/07/25 00:07 500 MG Sacubitril/ Valsartan 1 tab BID PO 01/04/25 10:00 01/05/25 09:33 1 TAB Amiodarone HCl 100 mg HS PO 01/04/25 22:00 01/06/25 22:00 100 MG Albuterol 2.5 mg Q4HR NEB 01/06/25 10:00 01/07/25 06:39 2.5 MG Ipratropium Ida 0.5 mg Q4HR NEB 01/06/25 10:00 01/07/25 06:39 0.5 MG Morphine Sulfate 2 mg Q4HP PRN IV 01/06/25 11:15 01/07/25 08:19 2 MG Norepinephrine Bitartrate 250 ml @ 1.875 mls/ hr Q24H IV 01/06/25 17:00 01/06/25 17:00 1.875 MLS/HR laboratory and microbiology Laboratory Tests 01/07/25 04:01 Test 01/07/25 04:01 Range/Units Serum Glucose 108 H 74-106 mg/dL Assessment/Plan Patient is a 79-year-old female who presented to the hospital with lower abdominal pain. She mentions that she has pain while urinating. She denies any recent chest pain. Emergency room physicians had documented that the patient presented with chest pain. Patient denies any recent chest pain. Patient does have history of coronary artery disease for which has been following with us/cardiology. Patient does have history of repeated admissions for chest discomfort and also bladder problems. Cardiology is involved for cardiac aspects of care. She does have history of systolic heart failure. Serial high sensitive troponin has been negative. Lying comfortably flat in bed, no JVD, pink and wet mucosa, no carotid bruit, no goiter, lungs: Not using accessory muscles of breathing, lungs reveal scattered rhonchi, cardiac: Regular regular, no thrill/gallop, 2+murmur in apex, abdomen: Soft, no hepatomegaly, some suprapubic tenderness is positive, no rebound tenderness, extremities: No edema, dorsalis pedis is 2+ bilateral. Right femoral/groin area with no hematoma. Past medical history includes hypertension, hyperlipidemia, coronary artery disease, history of CABG (2010), systolic heart failure, ischemic cardiomyopathy, gout, kidney stone, s/p ESWL, frequent UTI, history of CVA, Diverticulosis, COPD, s/p COVID, depression, Anxiety, GERD, history of appendectomy/hysterectomy/tonsillectomy, and history of BiV ICD (Biotronik) implantation. She is chronically wheelchair-bound. She was previously in hospice for heart failure. She is allergic to codeine. She quit smoking years ago. She is DNR. She also has diagnosis of parkinsonism. Cardiac catheterization of August 26, 2024 (performed in [facility]) revealed triple-vessel [place] coronary artery disease. STOCK SUPERVISOR of obtuse marginal. STOCK SUPERVISOR of RCA. Lad with 75% lesion and status post drug-eluting stent deployment. It is of note that there is patent SVG to obtuse marginal and also patent SVG to RCA. Cardiac catheterization of September 2020 revealed ejection fraction of 20%, STOCK SUPERVISOR of SVG to diagonal, patent TAN, patent SVG to OM, patent SVG to PDA and STOCK SUPERVISOR of RCA. Echocardiogram of reported: Dilated left ventricle, LVEF of around 10%. Pacing wire was seen in the right-sided chambers. There was mild mitral regurgitation. There was trace tricuspid regurgitation. As there was no good tricuspid regurgitation jet, right ventricular systolic pressure could not be estimated. Echocardiogram of September 04, 2024 reported: Dilated left ventricle. LVEF of 10%. Increased EDP. Pacing wire in right-sided chambers. Mild mitral regurgitation. As there was no good tricuspid regurgitation jet, right ventricular systolic pressure could not be estimated Echocardiogram of August 25, 2024 (performed in [facility]) for PE old ejection fraction of 20% Echocardiogram of reported: LV EF of 15-20%, biatrial enlargement, pacing wire in the right-sided chambers. Echocardiogram of November 22, 2023 revealed: Dilated left ventricle, LVEF of 10%, pacing wire and right-sided chambers, mild mitral regurgitation. Echocardiogram of August 28, 2023 revealed: Dilated left ventricle with significantly reduced systolic function. LVEF of 20%. Elevated LVEDP, dilated four chambers. Pacing wire was seen in right-sided chamber. [id number] MR. Echocardiogram of January 03, 2023 revealed ejection fraction of 20 to 25% and mild left ventricular enlargement Echocardiogram of March 25, 2023 (performed in the office) revealed four- chamber dilatation, LVEF of 20 to 25%, mild to moderate MR, mild TR, trace pulmonary valve insufficiency and right ventricular systolic pressure of 35 mmHg Echocardiogram of March 21, 2022 revealed ejection fraction of around 20%, mild MR/TR Echocardiogram of February 17, 2021 revealed dilated LV, LVEF around 25%, severe diffuse hypokinesis, increased LVEDP, dilated left and right atria, mild to moderate MR, mild TR. Echocardiogram of December 30, 2020 reported ejection fraction less than 20% and dilated left atrium. Echocardiogram of August 2020 revealed ejection fraction less than 25%, right atrial enlargement, left atrial enlargement and moderate MR. WBC: 13.5 - 12.1 - 8.7 - 9.5 Troponin (high sensitive): 25 - 29 - 25 Magnesium: 2.2 - 2.0 Creatinine: 1.19 - 1.08 - 1.39 - 1.19 Potassium: 4.7 - 4.8 - 4.7 - 4.8 Chest x-ray reported: IMPRESSION: 1. No evidence of acute disease. Repeat chest xry revealed: IMPRESSION: 1. Mild pulmonary vascular congestion. Moderate cardiomegaly. 2. No focal consolidations. Repeat chest xry revealed: IMPRESSION: 1. Small left pleural effusion. Abdomen and Pelvic CT revealed: IMPRESSION: 1. No acute abdominal or pelvic findings. 2. Nonobstructive left nephrolithiasis measuring 0.3 cm. EKG reviewed: Revealed sinus rhythm with paced ventricular rhythm Tele revealed: A sense V paced rhythm Patient is a 79-year-old female presented with lower abdominal pain. Does have history of repeated UTIs which could have contributed to the clinical picture. Patient does have baseline history of coronary artery disease and systolic heart failure. Presentation is not considered acute coronary syndrome. Cardiac-monge, the patient is compensated Serial high sensitive troponin has been negative and acute coronary syndrome is not considered. Patient is on dual antiplatelet therapy for previously implanted stent. To be kept on aspirin/Plavix. Does have baseline history of ischemic/systolic heart failure which at this point is considered compensated. She is DNR. Does complain of dysuria and has history of UTIs (not new). Was started on Levophed for hypotension. UTI Ischemic cardiomyopathy, history of Systolic CHF s/p BiV-ICD implantation Coronary artery disease, status post CABG Status post PCI Diverticular disease Renal calculi Emphysema Kidney stone, history of Coronary artery disease, SP CABG GERD Hypertension Hyperlipidemia Gout Constipation Cardiac suggestion for management: Manage on telemetry Follow-up electrolytes and kidney function tests and correct abnormalities. Keep potassium above 4 and magnesium above 2 Continue Aspirin/Plavix Continue Toprol-XL/Entresto/Aldactone/Ranolazine/Atorvastatin Keep MAP above 55 (you can use Levophed) No indication to repeat ischemic workup/echocardiogram Evaluation and management of UTI/dysuria as per primary Further evaluation and management depends on the above and clinical course A total of 75 minutes was spent reviewing the patient record, examining the patient, making a diagnostic and therapeutic plan, discussing this plan with medical personnel, following up on diagnostic studies and following the patient for clinical stability excluding any and all procedures. At least 50% of this time was spent in direct, [id number] contact. Thank you for allowing me to participate in this patient's care. Further recommendations will depend on patient's clinical course. Please do not hesitate to contact me if you have any questions or concerns. This medical document was created using electronic medical record system with [employer] dictation system. Although this document has been carefully reviewed, there may still be some phonetic and typographical errors. These areas are purely typographical due to the imperfection of the software programs, and do not reflect any compromise in the patient's medical care. Dietary Evaluation Review Comments: 1) Consider Ensure Enlive 240ml TID if PO intake <50% 2) Monitor PO intake, lab values, weight trend, and I/O Expected Outcomes/Goals: To meet >75% estimated needs Lab values to improve Fu 3-5 days Plan discussed with: Other (nurse) RODRIGUEZ LEBRON MD Jan 07, 2025 08:52
--- NOTE | 2025-01-07 16:22 | DVHPN2 ---
Subjective Overnight events noted. Patient is currently off of Levophed, can be downgraded to telemetry. Changes from previous H/P or p: No Changes Eyes: No Pain, No Vision change, No Conjunctivae inflammation, No Eyelid inflammation, No Other, No Redness ENT: No Ear pain, No Ear discharge, No Nose pain, No Nose discharge, No Nose congestion, No Mouth pain, No Mouth swelling, No Throat pain, No Throat swelling, No Other Cardiovascular: Chest Pain; No Palpitations, No Orthopnea, No Paroxysmal Noc. Dyspnea, No Edema, No Lt Headedness, No Other Respiratory: No Cough, No Dry; Shortness of breath; No SOB with excertion, No Wheezing, No Hemoptysis, No Pleuritic Pain, No Sputum, No Other Gastrointestinal: No Nausea, No Vomiting, No Abdominal Pain, No Diarrhea, No Constipation, No Melena, No Hematochezia, No Other Genitourinary: No Dysuria, No Frequency, No Incontinence, No Hematuria, No Retention, No Other Musculoskeletal: No other, No neck pain, No shoulder pain, No arm pain, No back pain, No hand pain, No leg pain, No foot pain Skin: No Rash, No Lesions, No Jaundice, No Bruising, No Other Objective Vitals Vital Signs Date Time Temp Pulse Resp B/P (MAP) Pulse Ox O2 Delivery O2 Flow Rate FiO2 01/07/25 13:57 69 16 100 01/07/25 13:51 Nasal Cannula 2.0 01/07/25 13:51 28 01/07/25 13:45 120/57 (78) 01/07/25 07:45 97.9 97.9 Intake/Output Intake and Output 01/07/25 07:00 Intake Total 1338.252 ml Output Total 500 ml Balance 838.252 ml Intake Oral 1252 ml IV Total 86.252 ml Output Urine Total 500 ml Stool Total 0 ml Exam HEENT pupils are reactive Neck is supple CV is S1-S2 regular rate and rhythm Respiratory bilateral clear GI positive bowel sound Extremity no edema CON[facility]CT [facility] REP no motor deficit. Medications Current Medications Medications Dose Ordered Sig/Asha Route Start Time Stop Time Status Last Admin Dose Admin Ascorbic Acid 500 mg BID PO 01/03/25 22:00 01/07/25 09:18 500 MG Aspirin 81 mg DAILY PO 01/04/25 10:00 01/07/25 09:18 81 MG Atorvastatin Calcium 40 mg HS PO 01/03/25 22:00 01/06/25 22:00 40 MG Clopidogrel Bisulfate 75 mg DAILY PO 01/04/25 10:00 01/07/25 09:17 75 MG Duloxetine HCl 30 mg DAILY PO 01/04/25 10:00 01/07/25 09:18 30 MG Multivitamins 1 tab DAILY PO 01/04/25 10:00 01/07/25 09:17 1 TAB Oxybutynin Chloride 5 mg Q8HR PO 01/03/25 14:00 01/07/25 13:51 5 MG Pantoprazole Sodium 40 mg DAILY@0700 PO 01/04/25 07:00 01/07/25 06:48 40 MG Polyethylene Glycol 17 gm DAILY PRN PO 01/03/25 13:00 Spironolactone 25 mg DAILY PO 01/04/25 10:00 01/07/25 09:18 25 MG Cholecalciferol 2,000 unit BID PO 01/03/25 22:00 01/07/25 09:16 2,000 UNIT Fluoxetine HCl 20 mg DAILY PO 01/04/25 10:00 01/07/25 09:18 20 MG Patient Own Medication 1 puff BID IN 01/03/25 22:00 Metoprolol Succinate 25 mg DAILY PO 01/04/25 10:00 Hold 01/05/25 09:46 25 MG Morphine Sulfate 2 mg Q30MP PRN IV 01/03/25 13:00 01/05/25 05:45 2 MG Acetaminophen 325 mg Q4HP PRN PO 01/03/25 13:00 01/06/25 10:18 325 MG Docusate Sodium 100 mg DAILY PO 01/04/25 10:00 01/07/25 09:17 100 MG Nitroglycerin 0.4 mg Q5MINP PRN SL 01/03/25 13:00 Ondansetron HCl 4 mg Q4HP PRN IV 01/03/25 13:00 01/07/25 12:30 4 MG Albuterol 2.5 mg Q4HPRN PRN NEB 01/03/25 16:45 01/05/25 21:12 2.5 MG Ipratropium Wolf 0.5 mg Q4HPRN PRN NEB 01/03/25 16:45 01/05/25 21:12 0.5 MG Levofloxacin 50 ml @ 50 mls/hr DAILY IV 01/04/25 10:00 Hold Ranolazine 500 mg BID@0000,1200 PO 01/04/25 00:00 01/07/25 13:51 500 MG Sacubitril/ Valsartan 1 tab BID PO 01/04/25 10:00 01/07/25 09:29 1 TAB Amiodarone HCl 100 mg HS PO 01/04/25 22:00 01/06/25 22:00 100 MG Albuterol 2.5 mg Q4HR NEB 01/06/25 10:00 01/07/25 13:51 2.5 MG Ipratropium Wolf 0.5 mg Q4HR NEB 01/06/25 10:00 01/07/25 13:51 0.5 MG Morphine Sulfate 2 mg Q4HP PRN IV 01/06/25 11:15 01/07/25 12:31 2 MG Norepinephrine Bitartrate 250 ml @ 1.875 mls/ hr Q24H IV 01/06/25 17:00 01/06/25 17:00 1.875 MLS/HR Laboratory Results Laboratory Tests 01/07/25 04:01 Chemistry Test 01/07/25 04:01 Albumin 3.8 g/dL (3.2-4.8) Calcium Level 9.2 mg/dL (8.7-10.4) Magnesium Level 2.0 mg/dL (1.6-2.6) Total Protein 5.5 g/dL (5.7-8.2) L LFT Test 01/07/25 04:01 Alanine Aminotransferase (ALT) < 9 U/L (7-40) Alkaline Phosphatase 55 U/L (46-116) Aspartate Amino Transferase (AST) 16 U/L (13-40) Total Bilirubin 0.3 mg/dL (0.2-1.0) Urinalysis Test 01/04/25 06:00 Urine Color Yellow (Yellow) Urine Clarity Turbid (Clear) H Urine pH 5.5 (5.0-9.0) Urine Specific [place] 1.023 (1.001-1.035) Urine Protein Trace (Negative) H Urine Ketones Negative (Negative) Urine Blood Negative /uL (Negative) Urine Nitrite 1+ (Negative) H Urine Bilirubin Negative (Negative) Urine Urobilinogen Normal mg/dL (Negative) Urine Leukocyte Esterase 3+ /uL (Negative) Urine Glucose Normal mg/dL (Normal) Microbiology Microbiology Date/Time Source Procedure Growth Status 01/05/25 22:00 Nose MRSA Screen - Final Complete 01/05/25 20:10 Voided Urine Urine Culture - Preliminary Resulted Assessment/Plan Assessment/Plan 79-year-old female with a known history of CAD status post CABG, status post PCI, emphysema, chronic respiratory failure on home O2, ischemic cardiomyopathy, systolic congestive heart failure, biventricular ICD presented to the hospital with a lower abdominal pain and dysuria found to have 1. Relative hypotension with a history of hypertension, hold BP meds, resolved 2. Known CAD status post CABG, status post PCI 3. Chronic respiratory failure on home O2 4. Emphysema/COPD currently not in exacerbation 4. Status post biventricular ICD 5. Ischemic cardiomyopathy with EF of 10% 6. Urinary tract infection -off of Levophed, downgraded to telemetry -IV antibiotics, follow up urine culture, follow up Cardiology recommendation -PT evaluation and treatment. Plan discussed with: Patient My Orders Orders - MARGA LALA MD Procedure Category Date Status Time Norepinephrine 8 PHA 01/06/25 In Process Mg/250ml Kit 17:00 Ct Ab Pel Wo Con-No CT 01/06/25 Resulted Oral Or Iv 17:01 Chest Portable XY 01/07/25 Resulted 04:00 Communication Order ORDERS 01/07/25 Transmitted 13:04 Date of Service: Jan 07, 2025 Billing Provider: MARGA LALA MD Common Visit Codes: [id number] INP/OBS CARE(MOD), [id number] INP/OBS CARE(HIGH) MARGA LALA MD Jan 07, 2025 16:22
[2025-01-08] VITALS (72 sets, daily range): BP systolic 77–115; BP diastolic 32–66; PULSE 60–90; RESP 10–26; TEMP 97.1–98.8; O2SAT 39–100
[2025-01-08 04:03] LABS: Hematocrit 38.5 % (36.0-46.0); Hemoglobin 12.8 g/dL (12.2-16.2); Mean Corpuscular Hemoglobin 30.2 pg (28.0-32.0); Mean Corpuscular Volume 90.5 fL (80.0-100.0); Nucleated Red Blood Cells % 0.1 %
[2025-01-08 04:21] LABS: Calcium 9.0 mg/dL (8.7-10.4); Chloride 107 mmol/L (98-107); Potassium 5.0 mmol/L (3.5-5.1); Sodium 139 mmol/L (136-145)
[2025-01-08 04:22] LABS: Anion Gap 6 (5-15); Carbon Dioxide 26 mmol/L (20-31)
[2025-01-08 04:27] LABS: BUN/Creatinine Ratio 21.4 (10.0-20.0); Blood Urea Nitrogen 21 mg/dL (9-23)
[2025-01-08 04:35] LABS: Glucose 72 mg/dL (74-106)
[2025-01-08 05:32] LABS: COVID19 ANTIGEN SOFIA FIA NEGATIVE (NEGATIVE)
--- NOTE | 2025-01-08 05:53 | DVH ---
CHEST RADIOGRAPH Indication: RESP DISTRESS Technique: Single frontal view. COMPARISON: XY CHEST PORTABLE on DOS: 01/07/25, XY CHEST PORTABLE on DOS: 01/06/25, XY CHEST PORTABLE o n DOS: 01/03/25, XY CHEST PORTABLE on DOS: 12/19/24, XY CHEST XRAY 1 VIEW on DOS: 11/30/24, XY CHEST PORT ABLE on DOS: 01/06/25 FINDINGS: No focal consolidations. Mild pulmonary vascular congestion. No pleural effusion or pneumothorax. Moderate cardiomegaly. Left chest pacer. Median sternotomy wires. IMPRESSION: Mild pulmonary vascular congestion. Moderate cardiomegaly. No focal consolidations.
[2025-01-08] MEDS: SODIUM ZIRCONIUM CYCL 10 GM PAK PO ONE (06:24)
--- NOTE | 2025-01-08 08:16 | DVHPN2 ---
Progress Note - Dictate Date Seen: Jan 08, 2025 Medical Necessity Reason Pt with a Central, PICC or Fol: No vital signs Vital Sign Date Time Temp Pulse Resp B/P (MAP) Pulse Ox O2 Delivery O2 Flow Rate FiO2 01/08/25 07:09 70 13 99/58 01/08/25 07:00 95 01/08/25 06:30 Nasal Cannula* 2 28 01/08/25 04:00 98.1 98.1 Total Intake and Output 01/07/25 01/07/25 01/08/25 15:00 23:00 07:00 Intake Total 1.876 ml 100 ml 240 ml Output Total 650 ml 500 ml Balance 1.876 ml -550 ml -260 ml medications Current Medications Medications Dose Ordered Sig/Asha Route Start Time Stop Time Status Last Admin Dose Admin Ascorbic Acid 500 mg BID PO 01/03/25 22:00 01/07/25 22:19 500 MG Aspirin 81 mg DAILY PO 01/04/25 10:00 01/07/25 09:18 81 MG Atorvastatin Calcium 40 mg HS PO 01/03/25 22:00 01/07/25 22:19 40 MG Clopidogrel Bisulfate 75 mg DAILY PO 01/04/25 10:00 01/07/25 09:17 75 MG Duloxetine HCl 30 mg DAILY PO 01/04/25 10:00 01/07/25 09:18 30 MG Multivitamins 1 tab DAILY PO 01/04/25 10:00 01/07/25 09:17 1 TAB Oxybutynin Chloride 5 mg Q8HR PO 01/03/25 14:00 01/08/25 06:24 5 MG Pantoprazole Sodium 40 mg DAILY@0700 PO 01/04/25 07:00 01/08/25 06:24 40 MG Polyethylene Glycol 17 gm DAILY PRN PO 01/03/25 13:00 Spironolactone 25 mg DAILY PO 01/04/25 10:00 01/07/25 09:18 25 MG Cholecalciferol 2,000 unit BID PO 01/03/25 22:00 01/07/25 22:19 2,000 UNIT Fluoxetine HCl 20 mg DAILY PO 01/04/25 10:00 01/07/25 09:18 20 MG Patient Own Medication 1 puff BID IN 01/03/25 22:00 Metoprolol Succinate 25 mg DAILY PO 01/04/25 10:00 Hold 01/05/25 09:46 25 MG Morphine Sulfate 2 mg Q30MP PRN IV 01/03/25 13:00 01/05/25 05:45 2 MG Acetaminophen 325 mg Q4HP PRN PO 01/03/25 13:00 01/06/25 10:18 325 MG Docusate Sodium 100 mg DAILY PO 01/04/25 10:00 01/07/25 09:17 100 MG Nitroglycerin 0.4 mg Q5MINP PRN SL 01/03/25 13:00 Ondansetron HCl 4 mg Q4HP PRN IV 01/03/25 13:00 01/08/25 07:09 4 MG Albuterol 2.5 mg Q4HPRN PRN NEB 01/03/25 16:45 01/05/25 21:12 2.5 MG Ipratropium [place] 0.5 mg Q4HPRN PRN NEB 01/03/25 16:45 01/05/25 21:12 0.5 MG Levofloxacin 50 ml @ 50 mls/hr DAILY IV 01/04/25 10:00 Hold Ranolazine 500 mg BID@0000,1200 PO 01/04/25 00:00 01/08/25 00:30 500 MG Sacubitril/ Valsartan 1 tab BID PO 01/04/25 10:00 01/07/25 22:19 1 TAB Amiodarone HCl 100 mg HS PO 01/04/25 22:00 01/07/25 22:19 100 MG Albuterol 2.5 mg Q4HR NEB 01/06/25 10:00 01/08/25 06:30 2.5 MG Ipratropium [place] 0.5 mg Q4HR NEB 01/06/25 10:00 01/08/25 06:30 0.5 MG Morphine Sulfate 2 mg Q4HP PRN IV 01/06/25 11:15 01/08/25 07:09 2 MG laboratory and microbiology Laboratory Tests 01/08/25 02:31 Test 01/08/25 02:31 Range/Units Serum Glucose 72 L 74-106 mg/dL Assessment/Plan Patient is a 79-year-old female who presented to the hospital with lower abdominal pain. She mentions that she has pain while urinating. She denies any recent chest pain. Emergency room physicians had documented that the patient presented with chest pain. Patient denies any recent chest pain. Patient does have history of coronary artery disease for which has been following with us/cardiology. Patient does have history of repeated admissions for chest discomfort and also bladder problems. Cardiology is involved for cardiac aspects of care. She does have history of systolic heart failure. Serial high sensitive troponin has been negative. Lying comfortably flat in bed, no JVD, pink and wet mucosa, no carotid bruit, no goiter, lungs: Not using accessory muscles of breathing, lungs reveal scattered rhonchi, cardiac: Regular regular, no thrill/gallop, 2+murmur in apex, abdomen: Soft, no hepatomegaly, some suprapubic tenderness is positive, no rebound tenderness, extremities: No edema, dorsalis pedis is 2+ bilateral. Right femoral/groin area with no hematoma. Past medical history includes hypertension, hyperlipidemia, coronary artery disease, history of CABG (2010), systolic heart failure, ischemic cardiomyopathy, gout, kidney stone, s/p ESWL, frequent UTI, history of CVA, Diverticulosis, COPD, s/p COVID, depression, Anxiety, GERD, history of appendectomy/hysterectomy/tonsillectomy, and history of BiV ICD (Biotronik) implantation. She is chronically wheelchair-bound. She was previously in hospice for heart failure. She is allergic to codeine. She quit smoking years ago. She is DNR. She also has diagnosis of parkinsonism. Cardiac catheterization of August 26, 2024 (performed in [facility]) revealed triple-vessel [place] coronary artery disease. 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 NUCLEAR FUELS RESEARCH ENGINEER of RCA. Lad with 75% lesion and status post drug-eluting stent deployment. It is of note that there is patent SVG to obtuse marginal and also patent SVG to RCA. Cardiac catheterization of September 2020 revealed ejection fraction of 20%, NUCLEAR FUELS RESEARCH ENGINEER of SVG to diagonal, patent TAN, patent SVG to OM, patent SVG to PDA and NUCLEAR FUELS RESEARCH ENGINEER of RCA. Echocardiogram of reported: Dilated left ventricle, LVEF of around 10%. Pacing wire was seen in the right-sided chambers. There was mild mitral regurgitation. There was trace tricuspid regurgitation. As there was no good tricuspid regurgitation jet, right ventricular systolic pressure could not be estimated. Echocardiogram of September 04, 2024 reported: Dilated left ventricle. LVEF of 10%. Increased EDP. Pacing wire in right-sided chambers. Mild mitral regurgitation. As there was no good tricuspid regurgitation jet, right ventricular systolic pressure could not be estimated Echocardiogram of August 25, 2024 (performed in [facility]) for PE old ejection fraction of 20% Echocardiogram of reported: LV EF of 15-20%, biatrial enlargement, pacing wire in the right-sided chambers. Echocardiogram of November 22, 2023 revealed: Dilated left ventricle, LVEF of 10%, pacing wire and right-sided chambers, mild mitral regurgitation. Echocardiogram of August 28, 2023 revealed: Dilated left ventricle with significantly reduced systolic function. LVEF of 20%. Elevated LVEDP, dilated four chambers. Pacing wire was seen in right-sided chamber. [id number] MR. Echocardiogram of January 03, 2023 revealed ejection fraction of 20 to 25% and mild left ventricular enlargement Echocardiogram of March 25, 2023 (performed in the office) revealed four- chamber dilatation, LVEF of 20 to 25%, mild to moderate MR, mild TR, trace pulmonary valve insufficiency and right ventricular systolic pressure of 35 mmHg Echocardiogram of March 21, 2022 revealed ejection fraction of around 20%, mild MR/TR Echocardiogram of February 17, 2021 revealed dilated LV, LVEF around 25%, severe diffuse hypokinesis, increased LVEDP, dilated left and right atria, mild to moderate MR, mild TR. Echocardiogram of December 30, 2020 reported ejection fraction less than 20% and dilated left atrium. Echocardiogram of August 2020 revealed ejection fraction less than 25%, right atrial enlargement, left atrial enlargement and moderate MR. WBC: 13.5 - 12.1 - 8.7 - 9.5 - 5.9 Troponin (high sensitive): 25 - 29 - 25 Magnesium: 2.2 - 2.0 Creatinine: 1.19 - 1.08 - 1.39 - 1.19 - 0.98 Potassium: 4.7 - 4.8 - 4.7 - 4.8 - 5.0 Chest x-ray reported: IMPRESSION: 1. No evidence of acute disease. Repeat chest xry revealed: IMPRESSION: 1. Mild pulmonary vascular congestion. Moderate cardiomegaly. 2. No focal consolidations. Repeat chest xry revealed: IMPRESSION: 1. Small left pleural effusion. Repeat chest xry revealed: IMPRESSION: Mild pulmonary vascular congestion. Moderate cardiomegaly. No focal consolidations. Abdomen and Pelvic CT revealed: IMPRESSION: 1. No acute abdominal or pelvic findings. 2. Nonobstructive left nephrolithiasis measuring 0.3 cm. EKG reviewed: Revealed sinus rhythm with paced ventricular rhythm Tele revealed: A sense V paced rhythm Patient is a 79-year-old female presented with lower abdominal pain. Does have history of repeated UTIs which could have contributed to the clinical picture. Patient does have baseline history of coronary artery disease and systolic heart failure. Presentation is not considered acute coronary syndrome. Cardiac-monge, the patient is compensated Serial high sensitive troponin has been negative and acute coronary syndrome is not considered. Patient is on dual antiplatelet therapy for previously implanted stent. To be kept on aspirin/Plavix. Does have baseline history of ischemic/systolic heart failure which at this point is considered compensated. She is DNR. Does complain of dysuria and has history of UTIs (not new). Was started on Levophed for hypotension. UTI Ischemic cardiomyopathy, history of Systolic CHF s/p BiV-ICD implantation Coronary artery disease, status post CABG Status post PCI Diverticular disease Renal calculi Emphysema Kidney stone, history of Coronary artery disease, SP CABG GERD Hypertension Hyperlipidemia Gout Constipation Cardiac suggestion for management: Manage on telemetry Follow-up electrolytes and kidney function tests and correct abnormalities. Keep potassium above 4 and magnesium above 2 Continue Aspirin/Plavix Continue Toprol-XL/Entresto/Aldactone/Ranolazine/Atorvastatin Keep MAP above 55 (you can use Levophed) No indication to repeat ischemic workup/echocardiogram Evaluation and management of UTI/dysuria as per primary Further evaluation and management depends on the above and clinical course A total of 75 minutes was spent reviewing the patient record, examining the patient, making a diagnostic and therapeutic plan, discussing this plan with medical personnel, following up on diagnostic studies and following the patient for clinical stability excluding any and all procedures. At least 50% of this time was spent in direct, [id number] contact. Thank you for allowing me to participate in this patient's care. Further recommendations will depend on patient's clinical course. Please do not hesitate to contact me if you have any questions or concerns. This medical document was created using electronic medical record system with [employer] dictation system. Although this document has been carefully reviewed, there may still be some phonetic and typographical errors. These areas are purely typographical due to the imperfection of the software programs, and do not reflect any compromise in the patient's medical care. Dietary Evaluation Review Comments: 1) Consider Ensure Enlive 240ml TID if PO intake <50% 2) Monitor PO intake, lab values, weight trend, and I/O Expected Outcomes/Goals: To meet >75% estimated needs Lab values to improve Fu 3-5 days Plan discussed with: Patient, Other (nurse) RODRIGUEZ LEBRON MD Jan 08, 2025 08:16
--- NOTE | 2025-01-08 17:02 | DVHPN2 ---
Subjective Overnight events noted. Patient is currently off of Levophed, she has a tele downgraded orders but there was no bed upstairs yet. Changes from previous H/P or p: No Changes Eyes: No Pain, No Vision change, No Conjunctivae inflammation, No Eyelid inflammation, No Other, No Redness ENT: No Ear pain, No Ear discharge, No Nose pain, No Nose discharge, No Nose congestion, No Mouth pain, No Mouth swelling, No Throat pain, No Throat swelling, No Other Cardiovascular: Chest Pain; No Palpitations, No Orthopnea, No Paroxysmal Noc. Dyspnea, No Edema, No Lt Headedness, No Other Respiratory: No Cough, No Dry; Shortness of breath; No SOB with excertion, No Wheezing, No Hemoptysis, No Pleuritic Pain, No Sputum, No Other Gastrointestinal: No Nausea, No Vomiting, No Abdominal Pain, No Diarrhea, No Constipation, No Melena, No Hematochezia, No Other Genitourinary: No Dysuria, No Frequency, No Incontinence, No Hematuria, No Retention, No Other Musculoskeletal: No other, No neck pain, No shoulder pain, No arm pain, No back pain, No hand pain, No leg pain, No foot pain Skin: No Rash, No Lesions, No Jaundice, No Bruising, No Other Objective Vitals Vital Signs Date Time Temp Pulse Resp B/P (MAP) Pulse Ox O2 Delivery O2 Flow Rate FiO2 01/08/25 15:28 67 94 118/43 01/08/25 14:30 93 01/08/25 14:12 Nasal Cannula 2.0 01/08/25 14:12 28 01/08/25 12:00 98.2 98.2 Intake/Output Intake and Output 01/08/25 07:00 Intake Total 341.876 ml Output Total 1150 ml Balance -808.124 ml Intake Oral 340 ml IV Total 1.876 ml Output Urine Total 1150 ml Stool Total 0 ml Exam HEENT pupils are reactive Neck is supple CV is S1-S2 regular rate and rhythm Respiratory bilateral clear GI positive bowel sound Extremity no edema 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 Medications Current Medications Medications Dose Ordered Sig/Asha Route Start Time Stop Time Status Last Admin Dose Admin Ascorbic Acid 500 mg BID PO 01/03/25 22:00 01/08/25 09:24 500 MG Aspirin 81 mg DAILY PO 01/04/25 10:00 01/08/25 09:24 81 MG Atorvastatin Calcium 40 mg HS PO 01/03/25 22:00 01/07/25 22:19 40 MG Clopidogrel Bisulfate 75 mg DAILY PO 01/04/25 10:00 01/08/25 09:24 75 MG Duloxetine HCl 30 mg DAILY PO 01/04/25 10:00 01/08/25 09:23 30 MG Multivitamins 1 tab DAILY PO 01/04/25 10:00 01/08/25 09:24 1 TAB Oxybutynin Chloride 5 mg Q8HR PO 01/03/25 14:00 01/08/25 14:27 5 MG Pantoprazole Sodium 40 mg DAILY@0700 PO 01/04/25 07:00 01/08/25 06:24 40 MG Polyethylene Glycol 17 gm DAILY PRN PO 01/03/25 13:00 Spironolactone 25 mg DAILY PO 01/04/25 10:00 01/08/25 09:22 25 MG Cholecalciferol 2,000 unit BID PO 01/03/25 22:00 01/08/25 09:23 2,000 UNIT Fluoxetine HCl 20 mg DAILY PO 01/04/25 10:00 01/08/25 09:24 20 MG Patient Own Medication 1 puff BID IN 01/03/25 22:00 Metoprolol Succinate 25 mg DAILY PO 01/04/25 10:00 Hold 01/05/25 09:46 25 MG Morphine Sulfate 2 mg Q30MP PRN IV 01/03/25 13:00 01/05/25 05:45 2 MG Acetaminophen 325 mg Q4HP PRN PO 01/03/25 13:00 01/06/25 10:18 325 MG Docusate Sodium 100 mg DAILY PO 01/04/25 10:00 01/07/25 09:17 100 MG Nitroglycerin 0.4 mg Q5MINP PRN SL 01/03/25 13:00 Ondansetron HCl 4 mg Q4HP PRN IV 01/03/25 13:00 01/08/25 15:27 4 MG Albuterol 2.5 mg Q4HPRN PRN NEB 01/03/25 16:45 01/05/25 21:12 2.5 MG Ipratropium [place] 0.5 mg Q4HPRN PRN NEB 01/03/25 16:45 01/05/25 21:12 0.5 MG Levofloxacin 50 ml @ 50 mls/hr DAILY IV 01/04/25 10:00 Hold Ranolazine 500 mg BID@0000,1200 PO 01/04/25 00:00 01/08/25 14:27 500 MG Sacubitril/ Valsartan 1 tab BID PO 01/04/25 10:00 01/08/25 09:24 1 TAB Amiodarone HCl 100 mg HS PO 01/04/25 22:00 01/07/25 22:19 100 MG Albuterol 2.5 mg Q4HR NEB 01/06/25 10:00 01/08/25 14:12 2.5 MG Ipratropium [place] 0.5 mg Q4HR NEB 01/06/25 10:00 01/08/25 14:12 0.5 MG Morphine Sulfate 2 mg Q4HP PRN IV 01/06/25 11:15 01/08/25 15:28 2 MG Laboratory Results Laboratory Tests 01/08/25 02:31 Chemistry Test 01/08/25 02:31 Calcium Level 9.0 mg/dL (8.7-10.4) Urinalysis Test 01/04/25 06:00 Urine Color Yellow (Yellow) Urine Clarity Turbid (Clear) H Urine pH 5.5 (5.0-9.0) Urine Specific [place] 1.023 (1.001-1.035) Urine Protein Trace (Negative) H Urine Ketones Negative (Negative) Urine Blood Negative /uL (Negative) Urine Nitrite 1+ (Negative) H Urine Bilirubin Negative (Negative) Urine Urobilinogen Normal mg/dL (Negative) Urine Leukocyte Esterase 3+ /uL (Negative) Urine Glucose Normal mg/dL (Normal) Microbiology Microbiology Date/Time Source Procedure Growth Status 01/05/25 22:00 Nose MRSA Screen - Final Complete 01/05/25 20:10 Voided Urine Urine Culture - Final Complete Assessment/Plan Assessment/Plan 79-year-old female with a known history of CAD status post CABG, status post PCI, emphysema, chronic respiratory failure on home O2, ischemic cardiomyopathy, systolic congestive heart failure, biventricular ICD presented to the hospital with a lower abdominal pain and dysuria found to have 1. Relative hypotension with a history of hypertension, hold BP meds, resolved 2. Known CAD status post CABG, status post PCI 3. Chronic respiratory failure on home O2 4. Emphysema/COPD currently not in exacerbation 4. Status post biventricular ICD 5. Ischemic cardiomyopathy with EF of 10% 6. Urinary tract infection -off of Levophed, downgraded to telemetry -IV antibiotics, follow up urine culture, follow up Cardiology recommendation -PT evaluation and treatment. Plan discussed with: Patient My Orders Orders - MARGA LALA MD Procedure Category Date Status Time Transfer Orders XFER 01/07/25 Transmitted 17:39 Chest Portable XY 01/08/25 Resulted 04:00 Pt Request For Service PT 01/08/25 Logged 12:43 Date of Service: Jan 08, 2025 Billing Provider: MARGA LALA MD Common Visit Codes: [id number] INP/OBS CARE(MOD) MARGA LALA MD Jan 08, 2025 17:02
[2025-01-09] VITALS (22 sets, daily range): BP systolic 93–110; BP diastolic 43–63; PULSE 64–83; RESP 16–20; TEMP 97–97.9; O2SAT 94–100
--- NOTE | 2025-01-09 10:04 | DVHPN2 ---
Progress Note - Dictate Date Seen: Jan 09, 2025 Medical Necessity Reason Pt with a Central, PICC or Fol: No vital signs Vital Sign Date Time Temp Pulse Resp B/P (MAP) Pulse Ox O2 Delivery O2 Flow Rate FiO2 01/09/25 09:52 71 16 100 01/09/25 09:00 97.5 96/44 (61) 97.5 01/09/25 08:00 Nasal Cannula* 2 28 Total Intake and Output 01/08/25 01/08/25 01/09/25 15:00 23:00 07:00 Intake Total 0 ml 200 ml Output Total 500 ml Balance 0 ml -300 ml medications Current Medications Medications Dose Ordered Sig/Asha Route Start Time Stop Time Status Last Admin Dose Admin Ascorbic Acid 500 mg BID PO 01/03/25 22:00 01/09/25 09:31 500 MG Aspirin 81 mg DAILY PO 01/04/25 10:00 01/09/25 09:32 81 MG Atorvastatin Calcium 40 mg HS PO 01/03/25 22:00 01/08/25 22:17 40 MG Clopidogrel Bisulfate 75 mg DAILY PO 01/04/25 10:00 01/09/25 09:31 75 MG Duloxetine HCl 30 mg DAILY PO 01/04/25 10:00 01/09/25 09:32 30 MG Multivitamins 1 tab DAILY PO 01/04/25 10:00 01/09/25 09:31 1 TAB Oxybutynin Chloride 5 mg Q8HR PO 01/03/25 14:00 01/09/25 06:12 5 MG Pantoprazole Sodium 40 mg DAILY@0700 PO 01/04/25 07:00 01/09/25 06:12 40 MG Polyethylene Glycol 17 gm DAILY PRN PO 01/03/25 13:00 Spironolactone 25 mg DAILY PO 01/04/25 10:00 01/09/25 09:31 25 MG Cholecalciferol 2,000 unit BID PO 01/03/25 22:00 01/09/25 09:31 2,000 UNIT Fluoxetine HCl 20 mg DAILY PO 01/04/25 10:00 01/09/25 09:31 20 MG Patient Own Medication 1 puff BID IN 01/03/25 22:00 Metoprolol Succinate 25 mg DAILY PO 01/04/25 10:00 Hold 01/05/25 09:46 25 MG Morphine Sulfate 2 mg Q30MP PRN IV 01/03/25 13:00 01/05/25 05:45 2 MG Acetaminophen 325 mg Q4HP PRN PO 01/03/25 13:00 01/06/25 10:18 325 MG Docusate Sodium 100 mg DAILY PO 01/04/25 10:00 01/09/25 09:31 100 MG Nitroglycerin 0.4 mg Q5MINP PRN SL 01/03/25 13:00 Ondansetron HCl 4 mg Q4HP PRN IV 01/03/25 13:00 01/09/25 06:46 4 MG Albuterol 2.5 mg Q4HPRN PRN NEB 01/03/25 16:45 01/05/25 21:12 2.5 MG Ipratropium [place] 0.5 mg Q4HPRN PRN NEB 01/03/25 16:45 01/05/25 21:12 0.5 MG Levofloxacin 50 ml @ 50 mls/hr DAILY IV 01/04/25 10:00 Hold Ranolazine 500 mg BID@0000,1200 PO 01/04/25 00:00 01/09/25 01:01 500 MG Sacubitril/ Valsartan 1 tab BID PO 01/04/25 10:00 01/09/25 09:32 1 TAB Amiodarone HCl 100 mg HS PO 01/04/25 22:00 01/08/25 22:18 100 MG Albuterol 2.5 mg Q4HR NEB 01/06/25 10:00 01/09/25 09:42 2.5 MG Ipratropium [place] 0.5 mg Q4HR NEB 01/06/25 10:00 01/09/25 09:42 0.5 MG Morphine Sulfate 2 mg Q4HP PRN IV 01/06/25 11:15 01/09/25 06:55 2 MG laboratory and microbiology Laboratory Tests 01/08/25 02:31 Test 01/08/25 02:31 Range/Units Serum Glucose 72 L 74-106 mg/dL Assessment/Plan Patient is a 79-year-old female who presented to the hospital with lower abdominal pain. She mentions that she has pain while urinating. She denies any recent chest pain. Emergency room physicians had documented that the patient presented with chest pain. Patient denies any recent chest pain. Patient does have history of coronary artery disease for which has been following with us/cardiology. Patient does have history of repeated admissions for chest discomfort and also bladder problems. Cardiology is involved for cardiac aspects of care. She does have history of systolic heart failure. Serial high sensitive troponin has been negative. Lying comfortably flat in bed, no JVD, pink and wet mucosa, no carotid bruit, no goiter, lungs: Not using accessory muscles of breathing, lungs reveal scattered rhonchi, cardiac: Regular regular, no thrill/gallop, 2+murmur in apex, abdomen: Soft, no hepatomegaly, some suprapubic tenderness is positive, no rebound tenderness, extremities: No edema, dorsalis pedis is 2+ bilateral. Right femoral/groin area with no hematoma. Past medical history includes hypertension, hyperlipidemia, coronary artery disease, history of CABG (2010), systolic heart failure, ischemic cardiomyopathy, gout, kidney stone, s/p ESWL, frequent UTI, history of CVA, Diverticulosis, COPD, s/p COVID, depression, Anxiety, GERD, history of appendectomy/hysterectomy/tonsillectomy, and history of BiV ICD (Biotronik) implantation. She is chronically wheelchair-bound. She was previously in hospice for heart failure. She is allergic to codeine. She quit smoking years ago. She is DNR. She also has diagnosis of parkinsonism. Cardiac catheterization of August 26, 2024 (performed in [facility]) revealed triple-vessel [place] coronary artery disease. CARE WORKER of obtuse marginal. CARE WORKER of RCA. Lad with 75% lesion and status post drug-eluting stent deployment. It is of note that there is patent SVG to obtuse marginal and also patent SVG to RCA. Cardiac catheterization of September 2020 revealed ejection fraction of 20%, CARE WORKER of SVG to diagonal, patent TAN, patent SVG to OM, patent SVG to PDA and CARE WORKER of RCA. Echocardiogram of reported: Dilated left ventricle, LVEF of around 10%. Pacing wire was seen in the right-sided chambers. There was mild mitral regurgitation. There was trace tricuspid regurgitation. As there was no good tricuspid regurgitation jet, right ventricular systolic pressure could not be estimated. Echocardiogram of September 04, 2024 reported: Dilated left ventricle. LVEF of 10%. Increased EDP. Pacing wire in right-sided chambers. Mild mitral regurgitation. As there was no good tricuspid regurgitation jet, right ventricular systolic pressure could not be estimated Echocardiogram of August 25, 2024 (performed in [facility]) for PE old ejection fraction of 20% Echocardiogram of reported: LV EF of 15-20%, biatrial enlargement, pacing wire in the right-sided chambers. Echocardiogram of November 22, 2023 revealed: Dilated left ventricle, LVEF of 10%, pacing wire and right-sided chambers, mild mitral regurgitation. Echocardiogram of August 28, 2023 revealed: Dilated left ventricle with significantly reduced systolic function. LVEF of 20%. Elevated LVEDP, dilated four chambers. Pacing wire was seen in right-sided chamber. [id number] MR. Echocardiogram of January 03, 2023 revealed ejection fraction of 20 to 25% and mild left ventricular enlargement Echocardiogram of March 25, 2023 (performed in the office) revealed four- chamber dilatation, LVEF of 20 to 25%, mild to moderate MR, mild TR, trace pulmonary valve insufficiency and right ventricular systolic pressure of 35 mmHg Echocardiogram of March 21, 2022 revealed ejection fraction of around 20%, mild MR/TR Echocardiogram of February 17, 2021 revealed dilated LV, LVEF around 25%, severe diffuse hypokinesis, increased LVEDP, dilated left and right atria, mild to moderate MR, mild TR. Echocardiogram of December 30, 2020 reported ejection fraction less than 20% and dilated left atrium. Echocardiogram of August 2020 revealed ejection fraction less than 25%, right atrial enlargement, left atrial enlargement and moderate MR. WBC: 13.5 - 12.1 - 8.7 - 9.5 - 5.9 Troponin (high sensitive): 25 - 29 - 25 Magnesium: 2.2 - 2.0 Creatinine: 1.19 - 1.08 - 1.39 - 1.19 - 0.98 Potassium: 4.7 - 4.8 - 4.7 - 4.8 - 5.0 Chest x-ray reported: IMPRESSION: 1. No evidence of acute disease. Repeat chest xry revealed: IMPRESSION: 1. Mild pulmonary vascular congestion. Moderate cardiomegaly. 2. No focal consolidations. Repeat chest xry revealed: IMPRESSION: 1. Small left pleural effusion. Repeat chest xry revealed: IMPRESSION: Mild pulmonary vascular congestion. Moderate cardiomegaly. No focal consolidations. Abdomen and Pelvic CT revealed: IMPRESSION: 1. No acute abdominal or pelvic findings. 2. Nonobstructive left nephrolithiasis measuring 0.3 cm. EKG reviewed: Revealed sinus rhythm with paced ventricular rhythm Tele revealed: A sense V paced rhythm Patient is a 79-year-old female presented with lower abdominal pain. Does have history of repeated UTIs which could have contributed to the clinical picture. Patient does have baseline history of coronary artery disease and systolic heart failure. Presentation is not considered acute coronary syndrome. Cardiac-monge, the patient is compensated Serial high sensitive troponin has been negative and acute coronary syndrome is not considered. Patient is on dual antiplatelet therapy for previously implanted stent. To be kept on aspirin/Plavix. Does have baseline history of ischemic/systolic heart failure which at this point is considered compensated. She is DNR. Does complain of dysuria and has history of UTIs (not new). Was started on Levophed for hypotension. UTI Ischemic cardiomyopathy, history of Systolic CHF s/p BiV-ICD implantation Coronary artery disease, status post CABG Status post PCI Diverticular disease Renal calculi Emphysema Kidney stone, history of Coronary artery disease, SP CABG GERD Hypertension Hyperlipidemia Gout Constipation Cardiac suggestion for management: Manage on telemetry Follow-up electrolytes and kidney function tests and correct abnormalities. Keep potassium above 4 and magnesium above 2 Continue Aspirin/Plavix Continue Toprol-XL/Entresto/Aldactone/Ranolazine/Atorvastatin No indication to repeat ischemic workup/echocardiogram Evaluation and management of UTI/dysuria as per primary Cardiac monge, stable and can be followed as outpatient Further evaluation and management depends on the above and clinical course A total of 75 minutes was spent reviewing the patient record, examining the patient, making a diagnostic and therapeutic plan, discussing this plan with medical personnel, following up on diagnostic studies and following the patient for clinical stability excluding any and all procedures. At least 50% of this time was spent in direct, [id number] contact. Thank you for allowing me to participate in this patient's care. Further recommendations will depend on patient's clinical course. Please do not hesitate to contact me if you have any questions or concerns. This medical document was created using electronic medical record system with Luminate dictation system. Although this document has been carefully reviewed, there may still be some phonetic and typographical errors. These areas are purely typographical due to the imperfection of the software programs, and do not reflect any compromise in the patient's medical care. Dietary Evaluation Review Comments: 1) Consider Ensure Enlive 240ml TID if PO intake <50% 2) Monitor PO intake, lab values, weight trend, and I/O Expected Outcomes/Goals: To meet >75% estimated needs Lab values to improve Fu 3-5 days Plan discussed with: Patient, Other (nurse) RODRIGUEZ LEBRON MD Jan 09, 2025 10:04
--- NOTE | 2025-01-09 16:16 | DVHPN2 ---
Subjective Patient is currently on telemetry floor, physical therapy evaluation and treatment, discharge plan. Changes from previous H/P or p: No Changes Eyes: No Pain, No Vision change, No Conjunctivae inflammation, No Eyelid inflammation, No Other, No Redness ENT: No Ear pain, No Ear discharge, No Nose pain, No Nose discharge, No Nose congestion, No Mouth pain, No Mouth swelling, No Throat pain, No Throat swelling, No Other Cardiovascular: Chest Pain; No Palpitations, No Orthopnea, No Paroxysmal Noc. Dyspnea, No Edema, No Lt Headedness, No Other Respiratory: No Cough, No Dry; Shortness of breath; No SOB with excertion, No Wheezing, No Hemoptysis, No Pleuritic Pain, No Sputum, No Other Gastrointestinal: No Nausea, No Vomiting, No Abdominal Pain, No Diarrhea, No Constipation, No Melena, No Hematochezia, No Other Genitourinary: No Dysuria, No Frequency, No Incontinence, No Hematuria, No Retention, No Other Musculoskeletal: No other, No neck pain, No shoulder pain, No arm pain, No back pain, No hand pain, No leg pain, No foot pain Skin: No Rash, No Lesions, No Jaundice, No Bruising, No Other Objective Vitals Vital Signs Date Time Temp Pulse Resp B/P (MAP) Pulse Ox O2 Delivery O2 Flow Rate FiO2 01/09/25 14:27 70 18 99 01/09/25 13:00 97.3 93/55 (68) 97.3 01/09/25 10:00 Nasal Cannula 2.0 01/09/25 10:00 28 Intake/Output Intake and Output 01/09/25 07:00 Intake Total 200 ml Output Total 500 ml Balance -300 ml Intake Oral 200 ml Output Urine Total 500 ml Exam HEENT pupils are reactive Neck is supple CV is S1-S2 regular rate and rhythm Respiratory bilateral clear GI positive bowel sound Extremity no 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 Medications Current Medications Medications Dose Ordered Sig/Asha Route Start Time Stop Time Status Last Admin Dose Admin Ascorbic Acid 500 mg BID PO 01/03/25 22:00 01/09/25 09:31 500 MG Aspirin 81 mg DAILY PO 01/04/25 10:00 01/09/25 09:32 81 MG Atorvastatin Calcium 40 mg HS PO 01/03/25 22:00 01/08/25 22:17 40 MG Clopidogrel Bisulfate 75 mg DAILY PO 01/04/25 10:00 01/09/25 09:31 75 MG Duloxetine HCl 30 mg DAILY PO 01/04/25 10:00 01/09/25 09:32 30 MG Multivitamins 1 tab DAILY PO 01/04/25 10:00 01/09/25 09:31 1 TAB Oxybutynin Chloride 5 mg Q8HR PO 01/03/25 14:00 01/09/25 14:00 5 MG Pantoprazole Sodium 40 mg DAILY@0700 PO 01/04/25 07:00 01/09/25 06:12 40 MG Polyethylene Glycol 17 gm DAILY PRN PO 01/03/25 13:00 Spironolactone 25 mg DAILY PO 01/04/25 10:00 01/09/25 09:31 25 MG Cholecalciferol 2,000 unit BID PO 01/03/25 22:00 01/09/25 09:31 2,000 UNIT Fluoxetine HCl 20 mg DAILY PO 01/04/25 10:00 01/09/25 09:31 20 MG Patient Own Medication 1 puff BID IN 01/03/25 22:00 Metoprolol Succinate 25 mg DAILY PO 01/04/25 10:00 Hold 01/05/25 09:46 25 MG Morphine Sulfate 2 mg Q30MP PRN IV 01/03/25 13:00 01/05/25 05:45 2 MG Acetaminophen 325 mg Q4HP PRN PO 01/03/25 13:00 01/06/25 10:18 325 MG Docusate Sodium 100 mg DAILY PO 01/04/25 10:00 01/09/25 09:31 100 MG Nitroglycerin 0.4 mg Q5MINP PRN SL 01/03/25 13:00 Ondansetron HCl 4 mg Q4HP PRN IV 01/03/25 13:00 01/09/25 12:24 4 MG Albuterol 2.5 mg Q4HPRN PRN NEB 01/03/25 16:45 01/05/25 21:12 2.5 MG Ipratropium [place] 0.5 mg Q4HPRN PRN NEB 01/03/25 16:45 01/05/25 21:12 0.5 MG Levofloxacin 50 ml @ 50 mls/hr DAILY IV 01/04/25 10:00 Hold Ranolazine 500 mg BID@0000,1200 PO 01/04/25 00:00 01/09/25 12:23 500 MG Sacubitril/ Valsartan 1 tab BID PO 01/04/25 10:00 01/09/25 09:32 1 TAB Amiodarone HCl 100 mg HS PO 01/04/25 22:00 01/08/25 22:18 100 MG Albuterol 2.5 mg Q4HR NEB 01/06/25 10:00 01/09/25 14:17 2.5 MG Ipratropium [place] 0.5 mg Q4HR NEB 01/06/25 10:00 01/09/25 14:17 0.5 MG Morphine Sulfate 2 mg Q4HP PRN IV 01/06/25 11:15 01/09/25 12:25 2 MG Laboratory Results Laboratory Tests 01/08/25 02:31 Urinalysis Test 01/04/25 06:00 Urine Color Yellow (Yellow) Urine Clarity Turbid (Clear) H Urine pH 5.5 (5.0-9.0) Urine Specific [place] 1.023 (1.001-1.035) Urine Protein Trace (Negative) H Urine Ketones Negative (Negative) Urine Blood Negative /uL (Negative) Urine Nitrite 1+ (Negative) H Urine Bilirubin Negative (Negative) Urine Urobilinogen Normal mg/dL (Negative) Urine Leukocyte Esterase 3+ /uL (Negative) Urine Glucose Normal mg/dL (Normal) Microbiology Microbiology Date/Time Source Procedure Growth Status 01/05/25 22:00 Nose MRSA Screen - Final Complete 01/05/25 20:10 Voided Urine Urine Culture - Final Complete Assessment/Plan Assessment/Plan 79-year-old female with a known history of CAD status post CABG, status post PCI, emphysema, chronic respiratory failure on home O2, ischemic cardiomyopathy, systolic congestive heart failure, biventricular ICD presented to the hospital with a lower abdominal pain and dysuria found to have 1. Relative hypotension with a history of hypertension, hold BP meds, resolved 2. Known CAD status post CABG, status post PCI 3. Chronic respiratory failure on home O2 4. Emphysema/COPD currently not in exacerbation 4. Status post biventricular ICD 5. Ischemic cardiomyopathy with EF of 10% 6. Urinary tract infection 7. Physical deconditioning - -IV antibiotics, urine culture probably contaminated, cardiology cleared the patient to be discharge -PT evaluation and treatment. -patient will be discharged back to assisted living facility. Plan discussed with: Patient Date of Service: Jan 09, 2025 Billing Provider: MARGA LALA MD Common Visit Codes: [id number] INP/OBS CARE(MOD) MARGA LALA MD Jan 09, 2025 16:16
[2025-01-10] VITALS (16 sets, daily range): BP systolic 94–137; BP diastolic 51–62; PULSE 66–76; RESP 16–20; TEMP 97.1–97.5; O2SAT 92–99
--- NOTE | 2025-01-10 08:07 | DVHPN2 ---
Progress Note - Dictate Date Seen: Jan 10, 2025 Medical Necessity Reason Pt with a Central, PICC or Fol: No vital signs Vital Sign Date Time Temp Pulse Resp B/P (MAP) Pulse Ox O2 Delivery O2 Flow Rate FiO2 01/10/25 06:35 70 17 105/59 01/10/25 06:14 98 01/10/25 05:03 97.5 97.5 01/10/25 02:20 Nasal Cannula 2.0 01/10/25 02:20 28 Total Intake and Output 01/09/25 01/09/25 01/10/25 15:00 23:00 07:00 Intake Total 400 ml 275 ml Output Total 550 ml 300 ml Balance -150 ml -25 ml medications Current Medications Medications Dose Ordered Sig/Asha Route Start Time Stop Time Status Last Admin Dose Admin Ascorbic Acid 500 mg BID PO 01/03/25 22:00 01/09/25 21:59 500 MG Aspirin 81 mg DAILY PO 01/04/25 10:00 01/09/25 09:32 81 MG Atorvastatin Calcium 40 mg HS PO 01/03/25 22:00 01/09/25 21:59 40 MG Clopidogrel Bisulfate 75 mg DAILY PO 01/04/25 10:00 01/09/25 09:31 75 MG Duloxetine HCl 30 mg DAILY PO 01/04/25 10:00 01/09/25 09:32 30 MG Multivitamins 1 tab DAILY PO 01/04/25 10:00 01/09/25 09:31 1 TAB Oxybutynin Chloride 5 mg Q8HR PO 01/03/25 14:00 01/10/25 06:33 5 MG Pantoprazole Sodium 40 mg DAILY@0700 PO 01/04/25 07:00 01/10/25 06:33 40 MG Polyethylene Glycol 17 gm DAILY PRN PO 01/03/25 13:00 Spironolactone 25 mg DAILY PO 01/04/25 10:00 01/09/25 09:31 25 MG Cholecalciferol 2,000 unit BID PO 01/03/25 22:00 01/09/25 21:59 2,000 UNIT Fluoxetine HCl 20 mg DAILY PO 01/04/25 10:00 01/09/25 09:31 20 MG Patient Own Medication 1 puff BID IN 01/03/25 22:00 Metoprolol Succinate 25 mg DAILY PO 01/04/25 10:00 Hold 8/12/25 09:46 25 MG Morphine Sulfate 2 mg Q30MP PRN IV 01/03/25 13:00 01/05/25 05:45 2 MG Acetaminophen 325 mg Q4HP PRN PO 01/03/25 13:00 01/06/25 10:18 325 MG Docusate Sodium 100 mg DAILY PO 01/04/25 10:00 01/09/25 09:31 100 MG Nitroglycerin 0.4 mg Q5MINP PRN SL 01/03/25 13:00 Ondansetron HCl 4 mg Q4HP PRN IV 01/03/25 13:00 01/10/25 06:34 4 MG Albuterol 2.5 mg Q4HPRN PRN NEB 01/03/25 16:45 01/05/25 21:12 2.5 MG Ipratropium [place] 0.5 mg Q4HPRN PRN NEB 01/03/25 16:45 01/05/25 21:12 0.5 MG Levofloxacin 50 ml @ 50 mls/hr DAILY IV 01/04/25 10:00 Hold Ranolazine 500 mg BID@0000,1200 PO 01/04/25 00:00 01/09/25 23:51 500 MG Sacubitril/ Valsartan 1 tab BID PO 01/04/25 10:00 01/09/25 09:32 1 TAB Amiodarone HCl 100 mg HS PO 01/04/25 22:00 01/09/25 22:20 100 MG Albuterol 2.5 mg Q4HR NEB 01/06/25 10:00 01/10/25 06:03 2.5 MG Ipratropium [place] 0.5 mg Q4HR NEB 01/06/25 10:00 01/10/25 06:03 0.5 MG Morphine Sulfate 2 mg Q4HP PRN IV 01/06/25 11:15 01/10/25 06:35 2 MG laboratory and microbiology Laboratory Tests 01/08/25 02:31 Test 01/08/25 02:31 Range/Units Serum Glucose 72 L 74-106 mg/dL Assessment/Plan Patient is a 79-year-old female who presented to the hospital with lower abdominal pain. She mentions that she has pain while urinating. She denies any recent chest pain. Emergency room physicians had documented that the patient presented with chest pain. Patient denies any recent chest pain. Patient does have history of coronary artery disease for which has been following with us/cardiology. Patient does have history of repeated admissions for chest discomfort and also bladder problems. Cardiology is involved for cardiac aspects of care. She does have history of systolic heart failure. Serial high sensitive troponin has been negative. Lying comfortably flat in bed, no JVD, pink and wet mucosa, no carotid bruit, no goiter, lungs: Not using accessory muscles of breathing, lungs reveal scattered rhonchi, cardiac: Regular regular, no thrill/gallop, 2+murmur in apex, abdomen: Soft, no hepatomegaly, some suprapubic tenderness is positive, no rebound tenderness, extremities: No edema, dorsalis pedis is 2+ bilateral. Right femoral/groin area with no hematoma. Past medical history includes hypertension, hyperlipidemia, coronary artery disease, history of CABG (2010), systolic heart failure, ischemic cardiomyopathy, gout, kidney stone, s/p ESWL, frequent UTI, history of CVA, Diverticulosis, COPD, s/p COVID, depression, Anxiety, GERD, history of appendectomy/hysterectomy/tonsillectomy, and history of BiV ICD (Biotronik) implantation. She is chronically wheelchair-bound. She was previously in hospice for heart failure. She is allergic to codeine. She quit smoking years ago. She is DNR. She also has diagnosis of parkinsonism. Cardiac catheterization of August 26, 2024 (performed in [facility]) revealed triple-vessel [place] coronary artery disease. 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 VISITING TEACHER of RCA. Lad with 75% lesion and status post drug-eluting stent deployment. It is of note that there is patent SVG to obtuse marginal and also patent SVG to RCA. Cardiac catheterization of September 2020 revealed ejection fraction of 20%, VISITING TEACHER of SVG to diagonal, patent TAN, patent SVG to OM, patent SVG to PDA and VISITING TEACHER of RCA. Echocardiogram of reported: Dilated left ventricle, LVEF of around 10%. Pacing wire was seen in the right-sided chambers. There was mild mitral regurgitation. There was trace tricuspid regurgitation. As there was no good tricuspid regurgitation jet, right ventricular systolic pressure could not be estimated. Echocardiogram of September 04, 2024 reported: Dilated left ventricle. LVEF of 10%. Increased EDP. Pacing wire in right-sided chambers. Mild mitral regurgitation. As there was no good tricuspid regurgitation jet, right ventricular systolic pressure could not be estimated Echocardiogram of August 25, 2024 (performed in [facility]) for PE old ejection fraction of 20% Echocardiogram of reported: LV EF of 15-20%, biatrial enlargement, pacing wire in the right-sided chambers. Echocardiogram of November 22, 2023 revealed: Dilated left ventricle, LVEF of 10%, pacing wire and right-sided chambers, mild mitral regurgitation. Echocardiogram of August 28, 2023 revealed: Dilated left ventricle with significantly reduced systolic function. LVEF of 20%. Elevated LVEDP, dilated four chambers. Pacing wire was seen in right-sided chamber. [id number] MR. Echocardiogram of January 03, 2023 revealed ejection fraction of 20 to 25% and mild left ventricular enlargement Echocardiogram of March 25, 2023 (performed in the office) revealed four- chamber dilatation, LVEF of 20 to 25%, mild to moderate MR, mild TR, trace pulmonary valve insufficiency and right ventricular systolic pressure of 35 mmHg Echocardiogram of March 21, 2022 revealed ejection fraction of around 20%, mild MR/TR Echocardiogram of February 17, 2021 revealed dilated LV, LVEF around 25%, severe diffuse hypokinesis, increased LVEDP, dilated left and right atria, mild to moderate MR, mild TR. Echocardiogram of December 30, 2020 reported ejection fraction less than 20% and dilated left atrium. Echocardiogram of August 2020 revealed ejection fraction less than 25%, right atrial enlargement, left atrial enlargement and moderate MR. WBC: 13.5 - 12.1 - 8.7 - 9.5 - 5.9 Troponin (high sensitive): 25 - 29 - 25 Magnesium: 2.2 - 2.0 Creatinine: 1.19 - 1.08 - 1.39 - 1.19 - 0.98 Potassium: 4.7 - 4.8 - 4.7 - 4.8 - 5.0 Chest x-ray reported: IMPRESSION: 1. No evidence of acute disease. Repeat chest xry revealed: IMPRESSION: 1. Mild pulmonary vascular congestion. Moderate cardiomegaly. 2. No focal consolidations. Repeat chest xry revealed: IMPRESSION: 1. Small left pleural effusion. Repeat chest xry revealed: IMPRESSION: Mild pulmonary vascular congestion. Moderate cardiomegaly. No focal consolidations. Abdomen and Pelvic CT revealed: IMPRESSION: 1. No acute abdominal or pelvic findings. 2. Nonobstructive left nephrolithiasis measuring 0.3 cm. EKG reviewed: Revealed sinus rhythm with paced ventricular rhythm Tele revealed: A sense V paced rhythm Patient is a 79-year-old female presented with lower abdominal pain. Does have history of repeated UTIs which could have contributed to the clinical picture. Patient does have baseline history of coronary artery disease and systolic heart failure. Presentation is not considered acute coronary syndrome. Cardiac-monge, the patient is compensated Serial high sensitive troponin has been negative and acute coronary syndrome is not considered. Patient is on dual antiplatelet therapy for previously implanted stent. To be kept on aspirin/Plavix. Does have baseline history of ischemic/systolic heart failure which at this point is considered compensated. She is DNR. Does complain of dysuria and has history of UTIs (not new). Was started on Levophed for hypotension. UTI Ischemic cardiomyopathy, history of Systolic CHF s/p BiV-ICD implantation Coronary artery disease, status post CABG Status post PCI Diverticular disease Renal calculi Emphysema Kidney stone, history of Coronary artery disease, SP CABG GERD Hypertension Hyperlipidemia Gout Constipation Cardiac suggestion for management: Manage on telemetry Follow-up electrolytes and kidney function tests and correct abnormalities. Keep potassium above 4 and magnesium above 2 Continue Aspirin/Plavix Continue Toprol-XL/Entresto/Aldactone/Ranolazine/Atorvastatin No indication to repeat ischemic workup/echocardiogram Evaluation and management of UTI/dysuria as per primary Cardiac monge, stable and can be followed as outpatient Further evaluation and management depends on the above and clinical course A total of 75 minutes was spent reviewing the patient record, examining the patient, making a diagnostic and therapeutic plan, discussing this plan with medical personnel, following up on diagnostic studies and following the patient for clinical stability excluding any and all procedures. At least 50% of this time was spent in direct, [id number] contact. Thank you for allowing me to participate in this patient's care. Further recommendations will depend on patient's clinical course. Please do not hesitate to contact me if you have any questions or concerns. This medical document was created using electronic medical record system with [employer] dictation system. Although this document has been carefully reviewed, there may still be some phonetic and typographical errors. These areas are purely typographical due to the imperfection of the software programs, and do not reflect any compromise in the patient's medical care. Dietary Evaluation Review Comments: 1) Consider Ensure Enlive 240ml TID if PO intake <50% 2) Monitor PO intake, lab values, weight trend, and I/O Expected Outcomes/Goals: To meet >75% estimated needs Lab values to improve Fu 3-5 days Plan discussed with: Patient, Other (nurse) RODRIGUEZ LEBRON MD Jan 10, 2025 08:06
[2025-01-10] MEDS: LACTULOSE 20Gm/30ML SOLN PO PRN (10:58)
[2025-01-10] MEDS: SENNA 8.6 MG TAB PO ONE (10:58)
--- NOTE | 2025-01-10 15:35 | DVHDS2 ---
Discharge Summary Date of Admission Jan 03, 2025 at 12:58 Date of Discharge: Jan 10, 2025 Labs/Diagnostic Data: Laboratory Results Test 01/08/25 03:00 01/08/25 02:31 01/07/25 04:01 01/04/25 06:00 Influenza Type A Antigen Negative (Negative) Influenza Type B Antigen Negative (Negative) SARS-CoV-2 Antigen (Rapid) Negative (NEGATIVE) White Blood Count 5.9 10^3/uL (4.4-10.8) Red Blood Count 4.25 10^6/uL (4.0-5.20) Hemoglobin 12.8 g/dL (12.2-16.2) Hematocrit 38.5 % (36.0-46.0) Mean Corpuscular Volume 90.5 fL (80.0-100.0) Mean Corpuscular Hemoglobin 30.2 pg (28.0-32.0) Mean Corpuscular Hemoglobin Concent 33.4 g/dL (32.0-36.0) Red Cell Distribution Width 16.8 % (11.8-14.3) Platelet Count 236 10^3/uL (140-450) Mean Platelet Volume 8.0 fL (6.9-10.8) Neutrophils (%) (Auto) 53.9 % (37.0-80.0) Lymphocytes (%) (Auto) 25.8 % (10.0-50.0) Monocytes (%) (Auto) 14.9 % (0.0-12.0) Eosinophils (%) (Auto) 4.6 % (0.0-7.0) Basophils (%) (Auto) 0.8 % (0.0-2.0) Neutrophils # (Auto) 3.2 10 ^3/uL (1.6-8.6) Lymphocytes # (Auto) 1.5 10 ^3/uL (0.4-5.4) Monocytes # (Auto) 0.9 10 ^3/uL (0-1.3) Eosinophils # (Auto) 0.3 10 ^3/uL (0-0.8) Basophils # (Auto) 0 10 ^3/uL (0-0.2) Nucleated Red Blood Cells 0.1 % Sodium Level 139 mmol/L (136-145) Potassium Level 5.0 mmol/L (3.5-5.1) Chloride Level 107 mmol/L (98-107) Carbon Dioxide Level 26 mmol/L (20-31) Anion Gap 6 (5-15) Blood Urea Nitrogen 21 mg/dL (9-23) Creatinine 0.98 mg/dL (0.550-1.02) Glomerular Filtration Rate Calc 58 mL/min (>90) BUN/Creatinine Ratio 21.4 (10.0-20.0) Serum Glucose 72 mg/dL (74-106) Calcium Level 9.0 mg/dL (8.7-10.4) Magnesium Level 2.0 mg/dL (1.6-2.6) Total Bilirubin 0.3 mg/dL (0.2-1.0) Aspartate Amino Transferase (AST) 16 U/L (13-40) Alanine Aminotransferase (ALT) < 9 U/L (7-40) Alkaline Phosphatase 55 U/L (46-116) Total Protein 5.5 g/dL (5.7-8.2) Albumin 3.8 g/dL (3.2-4.8) Urine Color Yellow (Yellow) Urine Clarity Turbid (Clear) Urine pH 5.5 (5.0-9.0) Urine Specific [place] 1.023 (1.001-1.035) Urine Protein Trace (Negative) Urine Ketones Negative (Negative) Urine Blood Negative /uL (Negative) Urine Nitrite 1+ (Negative) Urine Bilirubin Negative (Negative) Urine Urobilinogen Normal mg/dL (Negative) Urine Leukocyte Esterase 3+ /uL (Negative) Urine Glucose Normal mg/dL (Normal) Test 01/03/25 15:14 Troponin I High Sensitivity 25 ng/L (</=34) Other Laboratory Tests 01/08/25 02:31 Brief Hx & Hospital Course: 79-year-old female with a known history of CAD status post CABG, status post PCI, emphysema, chronic respiratory failure on home O2, ischemic cardiomyopathy, systolic congestive heart failure, biventricular ICD presented to the hospital with a lower abdominal pain and dysuria found to have relative hypotension with a history of hypertension. Patient was eventually admitted initially kept in ICU because of Levophed requirement. Patient does have ischemic cardiomyopathy with EF of 10%. Patient subsequently off of Levophed downgraded to telemetry floor. Patient is being discharged under stable condition. Patient was treated for UTI as well. Patient is being discharged to assisted living facility. Condition at Discharge: Stable Final Diagnosis/Problems List 79-year-old female with a known history of CAD status post CABG, status post PCI, emphysema, chronic respiratory failure on home O2, ischemic cardiomyopathy, systolic congestive heart failure, biventricular ICD presented to the hospital with a lower abdominal pain and dysuria found to have 1. Relative hypotension with a history of hypertension, hold BP meds, resolved 2. Known CAD status post CABG, status post PCI 3. Chronic respiratory failure on home O2 4. Emphysema/COPD currently not in exacerbation 4. Status post biventricular ICD 5. Ischemic cardiomyopathy with EF of 10% 6. Urinary tract infection 7. Physical deconditioning Discharge Disposition: Assisted Living Facility SNF Discharge Will this Physician continue t: No Discharge Instruct/Medications Diet: Cardiac 2g Na,low cholest Activity: No Restrictions, As Tolerated Scheduled Acetaminophen (Acetaminophen), 650 MG PO TID Ascorbic Acid (Vitamin C Tablet), 1 TAB PO BID, (Reported) Aspirin (Aspir-Low), 1 TAB PO DAILY, (Reported) Atorvastatin Calcium (Atorvastatin Calcium), 40 MG PO HS Cholecalciferol (Vitamin D3), 1 TAB PO BID, (Reported) Clopidogrel Bisulfate (Clopidogrel), 75 MG PO DAILY Duloxetine Hydrochloride (Duloxetine Hydrochloride), 30 MG PO DAILY Fluoxetine HCl (Pmdd) (Fluoxetine HCl), 20 MG PO DAILY, (Reported) Fluticasone-Salmeterol (Fluticasone Propionate/SA 250-50 Mcg/Dose), 1 PUFF INH BID, (Reported) Levofloxacin Hemihydrate (Levaquin 500 Mg), 1 TAB PO DAILY Metoprolol Succinate (Metoprolol Succinate Er), 1 TAB PO DAILY Multiple Vitamin (Tab-A-Radha), 1 TAB PO DAILY, (Reported) Oxybutynin Chloride (Oxybutynin Chloride), 5 MG PO Q8HR Oxycodone W/ Acetaminophen (Percocet 5/325MG), 1 TAB PO QID Pantoprazole Sodium Sesquihydr (Pantoprazole Sodium), 1 TAB PO DAILY, (Reported) Phenazopyridine HCl (Eq Urinary Pain Relief Ma), 99.5 MG PO TID Ranolazine (Ranolazine ER), 500 MG PO BID Spironolactone (Aldactone), 25 MG PO DAILY Scheduled PRN Albuterol Sulfate (Albuterol Sulfate Hfa), 2 PUFF INH Q4HPRN PRN for dyspnea, (Reported) Ipratropium-Albuterol (Ipratropium [place]/Albut), 1 VIAL NEB Q6HPRN PRN for SHORTNESS OF BREATH, (Reported) Polyethylene Glycol 3350 (Miralax), 17 GM PO DAILY PRN for FOR CONSTIPATION, (Reported) Discharge Statement: "Patient was advised to return to the ER or call 911 if any headaches, dizziness, shortness of breath, chest pain, abdominal pain, bleeding, fevers, or worsening of medical condition. Patient was counseled about treatment plan, medications, possible side effects, patientverbalized understanding. All questions were answered to the best of my ability. This discharge took greater then 30 minutes in planning, reviewing documentation, counseling the patient, and discussing with other team members." ASSESSMENT ASSESSMENT Assessment 79-year-old female with a known history of CAD status post CABG, status post PCI, emphysema, chronic respiratory failure on home O2, ischemic cardiomyopathy, systolic congestive heart failure, biventricular ICD presented to the hospital with a lower abdominal pain and dysuria found to have 1. Relative hypotension with a history of hypertension, hold BP meds, resolved 2. Known CAD status post CABG, status post PCI 3. Chronic respiratory failure on home O2 4. Emphysema/COPD currently not in exacerbation 4. Status post biventricular ICD 5. Ischemic cardiomyopathy with EF of 10% 6. Urinary tract infection 7. Physical deconditioning Date of Service: Jan 10, 2025 Billing Provider: MARGA LALA MD Common Visit Codes: 87435-VOO/OBS DISCH DAY >30min MARGA LALA MD Jan 10, 2025 15:35
[2025-01-10] MEDS ORDERED: SENNA 8.6 MG TAB PO SCH (22:00)
[2025-01-10] MEDS ORDERED: DOCUSATE SOD 100 MG CAP PO SCH (22:00)
== END 2025-01-10 17:10 | disposition home or self-care (01) | DRG 314 ==
LOC: EDBD 10:46 → ER 10:46 → EDUNIT# 10:46 → OVERFLOW 12:58 → ICU WEST 01-05 22:53 → TELE-CENTR 01-08 15:40
PROVIDERS: ADMIT Hospitalist; ATTEND Hospitalist
PROC: 05HA33Z Insertion of Infusion Device into Left Brachial Vein, Percutaneous Approach (ICD-10-PCS; principal; 2025-01-03)
PROC: B54NZZA Ultrasonography of Left Upper Extremity Veins, Guidance (ICD-10-PCS; 2025-01-03)
PROC: 4B02XSZ Measurement of Cardiac Pacemaker, External Approach (ICD-10-PCS; 2025-01-05)
DX: I95.89 Other hypotension (principal); I50.23 Acute on chronic systolic (congestive) heart failure; N17.0 Acute kidney failure with tubular necrosis; N39.0 Urinary tract infection, site not specified; J96.10 Chronic respiratory failure, unspecified whether with hypoxia or hypercapnia; E86.0 Dehydration; Z66 Do not resuscitate; I11.0 Hypertensive heart disease with heart failure; J43.9 Emphysema, unspecified; I25.5 Ischemic cardiomyopathy; E78.5 Hyperlipidemia, unspecified; K59.00 Constipation, unspecified; K21.9 Gastro-esophageal reflux disease without esophagitis; Z20.822 Contact with and (suspected) exposure to COVID-19; F32.A Depression, unspecified; F41.9 Anxiety disorder, unspecified; G20.C Parkinsonism, unspecified; K57.30 Diverticulosis of large intestine without perforation or abscess without bleeding; M10.9 Gout, unspecified; J44.89 Other specified chronic obstructive pulmonary disease; I25.10 Atherosclerotic heart disease of native coronary artery without angina pectoris; N20.0 Calculus of kidney; Z99.81 Dependence on supplemental oxygen; Z95.1 Presence of aortocoronary bypass graft; Z79.02 Long term (current) use of antithrombotics/antiplatelets; Z79.82 Long term (current) use of aspirin; Z79.899 Other long term (current) drug therapy; Z82.49 Family history of ischemic heart disease and other diseases of the circulatory system; Z83.3 Family history of diabetes mellitus; Z86.73 Personal history of transient ischemic attack (TIA), and cerebral infarction without residual deficits; Z87.891 Personal history of nicotine dependence; Z88.5 Allergy status to narcotic agent; Z90.49 Acquired absence of other specified parts of digestive tract; Z90.710 Acquired absence of both cervix and uterus; Z95.5 Presence of coronary angioplasty implant and graft; Z95.810 Presence of automatic (implantable) cardiac defibrillator; Z99.3 Dependence on wheelchair; Z88.1 Allergy status to other antibiotic agents; Z88.8 Allergy status to other drugs, medicaments and biological substances
CPT/HCPCS: 36415; 71045; 74176; 80048; 80053; 81003; 83735; 84484; 85025; 87081; 87086; 87426; 87804; 93005; 94640; 99291; 99292; G0378; J1885; J1956; J2405

== ENCOUNTER 2025-01-14 10:42 | Inpatient (IN) | payer OTHER, MEDICAID ==
[~2025-01-14] VITALS: Ht 160 cm; Wt 67.9 kg
--- NOTE | 2025-01-14 11:43 | ED.PDOC ---
History of Present Illness HPI Comments 79-year-old female BIBA with prior medical history ofAnemia, anxiety, asthma, CAD, CHF, CKD, COPD, CVA, depression, GERD, gallop, high lipids, hypertension, kidney stones, mi, UTI: Surgical history of Appendectomy, CABG, hysterectomy, pacemaker, PTCA, tonsillectomy and a chief complaint of generalized weakness. EMS report that the patient was recently discharged from ICU two days ago for a UTI and was stating ICU for one week. Patient is picked up at [facility] for a dry cough in her blood pressure on scene of 137/62. Denies chills, fever, N/V/D, SOB, CP. No other associated symptoms, modifiers, recent injuries or sick contacts present at this time. Time Seen by MD: 11:10 Primary Care Provider: HORTENCIA Reviewed Notes: Nurses Notes, Medications, Allergies Allergies: Coded Allergies: Ceftriaxone (Verified Allergy, Intermediate, generalized rash, 11/08/22) TRIAGE ASSISTANT OMEGA MEJIA Hydrocodone (Verified Allergy, Unknown, rash, 05/18/23) tylenol is okay per patient Home Meds Active Scripts Levofloxacin Hemihydrate (LEVAQUIN 500 MG) 500 Mg Tab, 1 TAB PO DAILY, #7 TAB Prov:LUIS REICH MD 12/23/24 Oxycodone W/ Acetaminophen (Percocet 5/325MG) 1 Tab Tb, 1 TAB PO QID, #30 TAB Prov:JANE VEGA MD 09/29/24 Phenazopyridine HCl (Eq Urinary Pain Relief Ma) 99.5 Mg Tab, 99.5 MG PO TID for 10 Days, #30 TAB Prov:PHILL LEAL RESDIENT 09/23/24 Metoprolol Succinate (Metoprolol Succinate Er) 25 Mg Tab, 1 TAB PO DAILY for 30 Days, #30 TAB 5 Refills Prov:AXEL CARABALLO RESIDENT 09/06/24 Spironolactone (Aldactone) 25 Mg Tab, 25 MG PO DAILY for 30 Days, #30 TAB Prov:BHARAT MICHELLE RESIDENT 07/22/24 Oxybutynin Chloride (Oxybutynin Chloride) 5 Mg Tab, 5 MG PO Q8HR for 30 Days, #90 TAB Prov:BHARAT MICHELLE RESIDENT 07/22/24 Atorvastatin Calcium (ATORVASTATIN CALCIUM) 20 Mg Tab, 40 MG PO HS for 30 Days, #60 TAB Prov:BHARAT MICHELLE RESIDENT 07/22/24 Acetaminophen (Acetaminophen) 325 Mg Tab, 650 MG PO TID for 10 Days, #60 TAB Prov:BHARAT MICHELLE RESIDENT 07/22/24 Duloxetine Hydrochloride (Duloxetine Hydrochloride) 30 Mg Cap, 30 MG PO DAILY for 30 Days, #30 CAP Prov:WINSOME GOMEZ MD 04/29/24 Clopidogrel Bisulfate (CLOPIDOGREL) 75 Mg Tab, 75 MG PO DAILY for 30 Days, #30 TAB 5 Refills Prov:YENNY FRAIRE MD 11/26/23 Ranolazine (Ranolazine ER) 500 Mg Tab, 500 MG PO BID for 30 Days, #60 TAB 2 Refills Prov:RUSSMAGAN RESIDENT 09/16/23 Reported Medications Polyethylene Glycol 3350 (Miralax) 17 Gm Pow, 17 GM PO DAILY PRN for FOR CONSTIPATION for 30 Days, #30 01/28/24 Ipratropium-Albuterol (Ipratropium [place]/Albut) 1 Yuli Yuli, 1 VIAL NEB Q6HPRN PRN for SHORTNESS OF BREATH for 13 Days, #180 09/05/23 Fluticasone-Salmeterol (Fluticasone Propionate/SA 250-50 Mcg/Dose) 1 Aer Aer, 1 PUFF INH BID for 30 Days, #60 09/05/23 Albuterol Sulfate (Albuterol Sulfate Hfa) 108 Mcg/Act Aer, 2 PUFF INH Q4HPRN PRN for dyspnea for 17 Days, #18 09/05/23 Cholecalciferol (VITAMIN D3) 2,000 Unit Tab, 1 TAB PO BID for 30 Days, #60 08/28/23 Multiple Vitamin (Tab-A-Radha) Tab, 1 TAB PO DAILY for 30 Days, #30 08/28/23 Aspirin (Aspir-Low) 81 Mg Tab, 1 TAB PO DAILY for 30 Days, #30 08/28/23 Ascorbic Acid (VITAMIN C TABLET) 500 Mg Tb, 1 TAB PO BID for 30 Days, #60 05/18/23 Pantoprazole Sodium Sesquihydr (Pantoprazole Sodium) 40 Mg Tab, 1 TAB PO DAILY 05/18/23 Fluoxetine HCl (Pmdd) (Fluoxetine HCl) 20 Mg Tab, 20 MG PO DAILY, TAB 05/30/20 Information Source: Patient, Emergency Med Personnel Mode of Arrival: EMS Severity: Moderate Timing: Came on: Gradually Duration: Since onset Prehospital treatment: None Past Medical History PAST MEDICAL HISTORY: Anemia, Anxiety, Asthma, CAD, CHF, CKF, COPD, CVA, Depression, GERD, Gout, High Lipids, HTN, Kidney Stones, NM, UTI'S Surgical History: Appendectomy, CABG, Hysterectomy, Pacemaker, PTCA, 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 [employer] 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 Family History Family History: Reviewed,noncontributory to illness, Unknown Social History Smoker: Non-Smoker Alcohol: Denies ETOH Use Drugs: Denies Drug Use Lives In: Assisted Care Constitutional: reports: weakness; denies: chills, diaphoresis, fatigue, fever, malaise, sweats, others EENTM: denies: blurred vision, double vision, ear bleeding, ear discharge, ear drainage, ear pain, ear ringing, eye pain, eye redness, hearing loss, mouth pain, mouth swelling, nasal discharge, nose bleeding, nose congestion, nose pain, photophobia, tearing, throat pain, throat swelling, voice changes, others Respiratory: reports: cough (dry); denies: hemoptysis, orthopnea, SOB at rest, shortness of breath, SOB with excertion, stridor, wheezing, others Cardiovascular: denies: chest pain, dizzy spells, diaphoresis, Dyspnea on exertion, edema, irregular heart beat, left arm pain, lightheadedness, palpitations, PND, syncope, others Gastrointestinal: denies: abdomen distended, abdominal pain, blood streaked bowels, constipated, diarrhea, dysphagia, difficulty swallowing, hematemesis, melena, nausea, poor appetite, poor fluid intake, rectal bleeding, rectal pain, vomiting, others Genitourinary: denies: abnormal vagina bleeding, burning, dyspareunia, dysuria, flank pain, frequency, hematuria, incontinence, pain, , vagina discharge, urgency, others Neurological: denies: dizziness, fainting, headache, left sided numbness, left sided weakness, numbness, paresthesia, pre-existing deficit, right sided numbness, right sided weakness, seizure, speech problems, tingling, tremors, weakness, others Musculoskeletal: denies: back pain, gout, joint pain, joint swelling, muscle pain, muscle stiffness, neck pain, others Integumetry: denies: bruises, change in color, change in hair/nails, dryness, laceration, lesions, lumps, rash, wounds, others Allergic/Immunocompromised: denies: Difficulty Healing, Frequent Infections, Hives, Itching, others Hematologic/Lymphatic: denies: anemia, blood clots, easy bleeding, easy bruising, swollen glands, others Endocrine: denies: excessive hunger, excessive sweating, excessive thirst, excessive urination, flushing, intolerance to cold, intolerance to heat, unexplained weight gain, unexplained weight loss, others Psychiatric: denies: anxiety, bipolar disorder, depression, hopeless, panic disorder, schizophrenia, sleepless, suicidal, others All Other Systems: Reviewed and Negative Physical Exam General Appearance: Moderate Distress, Normal HEENT: Normal ENT Inspection, Pharynx Normal, TMs Normal Neck: Full Range of Motion, Non-Tender, Normal, Normal Inspection Respiratory: Chest Non-Tender, Lungs Clear, No Accessory Muscle Use, No Respiratory Distress, Normal Breath Sounds Cardiovascular: No Edema, No JVD, No Murmur, No Gallop, Normal Peripheral Pulses, Regular Rate/Rhythm Breast Exam: Deferred Gastrointestinal: No Organomegaly, Non Tender, No Pulsatile Mass, Normal Bowel Sounds, Soft Genitalia: Deferred Pelvic: Deferred Rectal: Deferred Extremities: No calf tenderness, Normal capillary refill, Normal inspection, Normal range of motion, Non-tender, No pedal edema Musculoskeletal : Apperance: Normal Neurologic: Alert, tool and die maker level five II-XII nml as Tested, No Motor Deficits, Normal Affect, Normal Mood, No Sensory Deficits Cerebellar Function: NOT DONE Reflexes: NOT DONE Skin: Dry, Normal Color, Warm Peripheral Pulses: 3+ Radial (R), 3+ Radial (L) Lymphatic: No Adenopathy Was a procedure done? Was a procedure done?: No Differential Dx Considerations may include: Anemia Electrolyte imbalance X-Ray, Labs, Meds, VS Vital Signs Date Time Temp Pulse Resp B/P (MAP) Pulse Ox O2 Delivery O2 Flow Rate FiO2 01/14/25 12:10 98.5 58 14 137/62 93 98.5 Lab Test 01/14/25 15:25 01/14/25 13:20 01/14/25 12:04 Range/Units Troponin I High Sensitivity 23 26 29 </=34 ng/L White Blood Count 6.7 4.4-10.8 10^3/uL Red Blood Count 4.33 4.0-5.20 10^6/uL Hemoglobin 13.0 12.2-16.2 g/dL Hematocrit 39.1 36.0-46.0 % Mean Corpuscular Volume 90.2 80.0-100.0 fL Mean Corpuscular Hemoglobin 30.1 28.0-32.0 pg Mean Corpuscular Hemoglobin Concent 33.3 32.0-36.0 g/dL Red Cell Distribution Width 16.6 H 11.8-14.3 % Platelet Count 266 140-450 10^3/uL Mean Platelet Volume 8.1 6.9-10.8 fL Neutrophils (%) (Auto) 52.7 37.0-80.0 % Lymphocytes (%) (Auto) 29.4 10.0-50.0 % Monocytes (%) (Auto) 13.2 H 0.0-12.0 % Eosinophils (%) (Auto) 4.1 0.0-7.0 % Basophils (%) (Auto) 0.6 0.0-2.0 % Neutrophils # (Auto) 3.5 1.6-8.6 10 ^3/uL Lymphocytes # (Auto) 2.0 0.4-5.4 10 ^3/uL Monocytes # (Auto) 0.9 0-1.3 10 ^3/uL Eosinophils # (Auto) 0.3 0-0.8 10 ^3/uL Basophils # (Auto) 0 0-0.2 10 ^3/uL Nucleated Red Blood Cells 0.1 % Sodium Level 142 136-145 mmol/L Potassium Level 4.1 3.5-5.1 mmol/L Chloride Level 108 H 98-107 mmol/L Carbon Dioxide Level 26 20-31 mmol/L Anion Gap 8 5-15 Blood Urea Nitrogen 16 9-23 mg/dL Creatinine 1.02 0.550-1.02 mg/dL Glomerular Filtration Rate Calc 56 >90 mL/min BUN/Creatinine Ratio 15.7 10.0-20.0 Serum Glucose 99 74-106 mg/dL Calcium Level 9.0 8.7-10.4 mg/dL Patient alert. Vitals stable. Was recently discharged from this hospital. WBC within normal limits. Hemoglobin within normal limits. Cardiac marker within normal limits. Establish intravenous access. Was given fluids. Reviewed her previous visit. Explained to the patient. Continue monitoring. EKG reviewed does not show any acute changes. Possibly will need placement. She continues to have weakness. No sign of any stroke. Time of 1ST Reevaluation: 17:04 Reevaluation 1ST: Unchanged Patient Education/Counseling: Diagnosis, Treatment, Prognosis Family Education/Counseling: No Family Present SEPSIS Sepsis Screen Physician Orders Chest Portable (01/14/25 11:47) Urinalysis (01/14/25 11:47) Vital Signs Date Time Temp Pulse Resp B/P (MAP) Pulse Ox O2 Delivery O2 Flow Rate FiO2 01/14/25 12:10 98.5 58 14 137/62 93 98.5 Laboratory Tests Test 01/14/25 12:04 White Blood Count 6.7 10^3/uL (4.4-10.8) Departure 1 Departure Time of Disposition: 17:07 Impression: Primary Impression: TIA (transient ischemic attack) Additional Impression: Generalized weakness Disposition: ADMITTED INPATIENT Admit to: Med Surg Condition: Guarded Critical Care Note Critical Care Time?: No Stability Stability form required: No Heart Score Heart Score: Heart Score Response (Comments) Value History Slightly Suspicious 0 EKG Normal 0 Age >65 2 Risk Factors >3 or Hx ASHD 2 Troponin Normal limit 0 Total 4 I personally scribed for AURORA RAMIREZ MD ([email or web address]) on 01/14/25 at 11:43. Electronically submitted by Natalio Baugh ([email or web address]). AURORA RAMIREZ MD Jan 14, 2025 11:43
[2025-01-14] MEDS: SODIUM CHLORIDE 0.9% 1,000 ML IV ONE (12:00)
[2025-01-14 12:42] LABS: Hematocrit 39.1 % (36.0-46.0); Hemoglobin 13.0 g/dL (12.2-16.2); Mean Corpuscular Hemoglobin 30.1 pg (28.0-32.0); Mean Corpuscular Volume 90.2 fL (80.0-100.0); Nucleated Red Blood Cells % 0.1 %
[2025-01-14 12:50] LABS: Potassium 4.1 mmol/L (3.5-5.1); Sodium 142 mmol/L (136-145)
[2025-01-14 12:51] LABS: Calcium 9.0 mg/dL (8.7-10.4); Chloride 108 mmol/L (98-107)
[2025-01-14 12:56] LABS: BUN/Creatinine Ratio 15.7 (10.0-20.0); Blood Urea Nitrogen 16 mg/dL (9-23); Glucose 99 mg/dL (74-106)
--- NOTE | 2025-01-14 13:06 | DVH ---
CHEST RADIOGRAPH Indication: sob Technique: Single frontal view of the chest was obtained COMPARISON: XY CHEST PORTABLE on DOS: 01/08/25, XY CHEST PORTABLE on DOS: 01/07/25, XY CHEST PORTABLE o n DOS: 01/06/25, XY CHEST PORTABLE on DOS: 01/03/25, XY CHEST PORTABLE on DOS: 12/19/24 FINDINGS: Lines and Tubes: Median sternotomy. Left chest AICD Lungs: Clear Pleura: No effusion. No pneumothorax. Cardiomediastinal contours: Unremarkable Bones: Unremarkable IMPRESSION: No acute disease.
[2025-01-14 13:08] LABS: Anion Gap 8 (5-15); Carbon Dioxide 26 mmol/L (20-31)
[2025-01-14 19:40] VITALS: PULSE 70; RESP 17; O2SAT 99
[2025-01-14 20:25] LABS: Urine Protein, UAD Negative (Negative)
[2025-01-14] MEDS ORDERED: DOCUSATE SOD 100 MG CAP PO PRN (21:45)
[2025-01-14] MEDS: SODIUM CHLOR 0.9% PF (SALINE LOCK) 10ML VIAL/SYR IV SCH (22:00)
[2025-01-14 22:09] VITALS: BP 107/46; PULSE 70; RESP 18; O2SAT 98
[2025-01-14] MEDS: ACETAMINOPHEN 325 MG TAB PO PRN (22:15)
[2025-01-14] MEDS: MORPHINE SULFATE INJ 2 MG/ml SYRG ONE (23:04)
[2025-01-14] MEDS: ONDANSETRON HCL 4 MG/2 ML VIAL IV PRN (23:06)
[2025-01-14] MEDS: ATORVASTATIN 20 MG TAB PO SCH (23:11)
[2025-01-14] MEDS: FAMOTIDINE (10MG/ML) 2ML VL IV SCH (23:11)
--- NOTE | 2025-01-14 23:24 | DVHHP2 ---
History of Present Illness Reason for Visit: Generalized weakness History of Present Illness The patient is a 79-year-old female with multiple past medical history including asthma, Coronary artery disease, COPD, depression, and hypertension who presented to [facility] ED from [facility] with complaint of generalized weakness and dry cough. Patient was recently discharged from ICU two days ago for UTI. Patient was seen and evaluated in the ED, laboratory data shows WBC 6.7, platelets 266, sodium 142, potassium 4.1, BUN 16, creatinine 1.02, GFR 56, glucose 99, calcium 9.0, troponin 23, blood pressure 107/46, heart rate 70, temperature 97.9 F, O2 saturation 97% on oxygen. Urinalysis positive for urinary tract infection. Chest x-ray show no acute disease. Patient was started on IV antibiotic regimen levofloxacin, please see medication orders section in the computer. On my assessment, patient denied chest pain, no headache, no dizziness, no diaphoresis, currently on oxygen, no nausea, no vomiting, no fever, no chills. Patient was admitted for further evaluation and medical management. Past Medical History Anemia, Anxiety, Asthma, CAD, CHF, CKF, COPD, CVA, Depression, GERD, Gout, High Lipids, HTN, Kidney Stones, VT, UTI'S, Ovarian Cysts Past Surgical History Appendectomy, CABG, Hysterectomy, Pacemaker, PTCA, 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 Family History Reviewed, noncontributory to the management of this case. Past Social History The patient lives at home, denies smoking, alcohol or illicit drugs abuse. Review of Systems Constitutional: Yes: Weakness; No: Fever, Chills, Sweats, Malaise, Other Eyes: No: Pain, Vision change, Conjunctivae inflammation, Eyelid inflammation, Other, Redness ENT: No: Ear pain, Ear discharge, Nose pain, Nose discharge, Nose congestion, Mouth pain, Mouth swelling, Throat pain, Throat swelling, Other Respiratory: Cough, Dry, Shortness of breath; No: SOB with excertion, Wheezing, Hemoptysis, Pleuritic Pain, Sputum, Wheezing, Other Cardiovascular: No: Chest Pain, Palpitations, Orthopnea, Paroxysmal Noc. Dyspnea, Edema, Lt Headedness, Other Gastrointestinal: No: Nausea, Vomiting, Abdominal Pain, Diarrhea, Constipation, Melena, Hematochezia, Other Genitourinary: No Dysuria, No Frequency, No Incontinence, No Hematuria, No Retention, No Other Musculoskeletal: No: other, neck pain, shoulder pain, arm pain, back pain, hand pain, leg pain, foot pain Skin: No: Rash, Lesions, Jaundice, Bruising, Other Neurological: No: Weakness, Numbness, Incoordination, Change in speech, Confusion, Seizures, Other Allergies: Coded Allergies: Ceftriaxone (Verified Allergy, Intermediate, generalized rash, 11/08/22) PHARMACOLOGY PROFESSOR OMEGA MEJIA Hydrocodone (Verified Allergy, Unknown, rash, 05/18/23) tylenol is okay per patient Medications Current Medications Medications Dose Ordered Sig/Asha Route Start Time Stop Time Status Last Admin Dose Admin Levofloxacin/ Dextrose 100 ml @ 100 mls/hr Q48H IV 01/15/25 22:00 Aspirin 81 mg DAILY PO 01/15/25 10:00 Atorvastatin Calcium 20 mg HS PO 01/14/25 22:00 01/14/25 23:11 20 MG Fluoxetine HCl 20 mg DAILY PO 01/15/25 10:00 Albuterol 2.5 mg Q4HPRN PRN NEB 01/14/25 21:45 Ipratropium [place] 0.5 mg Q4HPRN PRN NEB 01/14/25 21:45 Famotidine 20 mg DAILY IV 01/14/25 22:00 01/14/25 23:11 20 MG Sodium Chloride 10 ml Q8HR IV 01/14/25 22:00 01/14/25 22:00 10 ML Ondansetron HCl 4 mg Q4HP PRN IV 01/14/25 21:45 01/14/25 23:06 4 MG Docusate Sodium 100 mg BIDPRN PRN PO 01/14/25 21:45 Multivitamins 1 tab DAILY PO 01/15/25 10:00 Acetaminophen 650 mg Q6HP PRN PO 01/14/25 21:45 Exam Vital Signs Vital Signs Date Time Temp Pulse Resp B/P (MAP) Pulse Ox O2 Delivery O2 Flow Rate FiO2 01/14/25 23:04 70 18 118/64 01/14/25 22:09 98 2.0 28 01/14/25 19:51 Nasal Cannula* 01/14/25 18:20 97.9 97.9 General Appearance: Alert, Oriented X3, Cooperative, No acute distress, mild distress HEENT: Atraumatic, PERRLA, EOMI, Mucous membr. moist/pink Respiratory: Normal air movement Cardiovascular: Regular rate, Normal S1, Normal S2, No murmurs Abdominal: Normal bowel sounds, Soft, No tenderness, No hepatospenomegaly, No masses Extremities: No clubbing, No cyanosis, No edema, Normal pulses, No tenderness/swelling Skin: No rashes, No breakdown, No significant lesion Neuro: Normal speech, Normal tone, Sensation intact, Cranial nerves 3-12 NL, Reflexes 2+, Other (Generalized weakness) Psych/Mental Status: Mental status NL, Mood NL Labs/Xrays Labs Test 01/14/25 19:56 01/14/25 19:25 01/14/25 15:25 01/14/25 12:04 Range/Units Urine Color Yellow Yellow Urine Clarity Clear Clear Urine pH 5.5 5.0-9.0 Urine Specific [place] 1.025 1.001-1.035 Urine Protein Negative Negative Urine Ketones Negative Negative Urine Blood Negative Negative /uL Urine Nitrite 2+ H Negative Urine Bilirubin Negative Negative Urine Urobilinogen Normal Negative mg/dL Urine Leukocyte Esterase 2+ Negative /uL Urine RBC 2 0 - 4 /hpf Urine Microscopic WBC 54 H 0-5 /HPF Urine Squamous Epithelial Cells Few <5 /hpf Urine Bacteria Many H None Seen /hpf Urine Hyaline Casts Few 0 - 2 /lpf Urine Mucus Few None Seen Urine Glucose Normal Normal mg/dL POC Glucose 97 70-106 mg/dl Troponin I High Sensitivity 23 </=34 ng/L White Blood Count 6.7 4.4-10.8 10^3/uL Red Blood Count 4.33 4.0-5.20 10^6/uL Hemoglobin 13.0 12.2-16.2 g/dL Hematocrit 39.1 36.0-46.0 % Mean Corpuscular Volume 90.2 80.0-100.0 fL Mean Corpuscular Hemoglobin 30.1 28.0-32.0 pg Mean Corpuscular Hemoglobin Concent 33.3 32.0-36.0 g/dL Red Cell Distribution Width 16.6 H 11.8-14.3 % Platelet Count 266 140-450 10^3/uL Mean Platelet Volume 8.1 6.9-10.8 fL Neutrophils (%) (Auto) 52.7 37.0-80.0 % Lymphocytes (%) (Auto) 29.4 10.0-50.0 % Monocytes (%) (Auto) 13.2 H 0.0-12.0 % Eosinophils (%) (Auto) 4.1 0.0-7.0 % Basophils (%) (Auto) 0.6 0.0-2.0 % Neutrophils # (Auto) 3.5 1.6-8.6 10 ^3/uL Lymphocytes # (Auto) 2.0 0.4-5.4 10 ^3/uL Monocytes # (Auto) 0.9 0-1.3 10 ^3/uL Eosinophils # (Auto) 0.3 0-0.8 10 ^3/uL Basophils # (Auto) 0 0-0.2 10 ^3/uL Nucleated Red Blood Cells 0.1 % Sodium Level 142 136-145 mmol/L Potassium Level 4.1 3.5-5.1 mmol/L Chloride Level 108 H 98-107 mmol/L Carbon Dioxide Level 26 20-31 mmol/L Anion Gap 8 5-15 Blood Urea Nitrogen 16 9-23 mg/dL Creatinine 1.02 0.550-1.02 mg/dL Glomerular Filtration Rate Calc 56 >90 mL/min BUN/Creatinine Ratio 15.7 10.0-20.0 Serum Glucose 99 74-106 mg/dL Calcium Level 9.0 8.7-10.4 mg/dL B-Type Natriuretic Peptide 544.65 0-100 pg/mL PATIENT: MONICA JAMES ACCT: [id number] UNIT: [id number] : 1945 LOC: ER ROOM / BED: / AGE / SEX: 79 / F ADM STATUS: REG ER SERVICE 1147 ORDERING PHYSICIAN: AURORA RAMIREZ MD PROCEDURE(s): CXRP - CHEST PORTABLE REASON: sob ORDER NUMBER(s): [id number], ACCESSION NUMBER(s): [id number] CHEST RADIOGRAPH Indication: sob Technique: Single frontal view of the chest was obtained COMPARISON: XY CHEST PORTABLE on DOS: 01/08/25, XY CHEST PORTABLE on DOS: 01/07/25, XY CHEST PORTABLE on DOS: 01/06/25, XY CHEST PORTABLE on DOS: 01/03/25, XY CHEST PORTABLE on DOS: 12/19/24 FINDINGS: Lines and Tubes: Median sternotomy. Left chest AICD Lungs: Clear Pleura: No effusion. No pneumothorax. Cardiomediastinal contours: Unremarkable Bones: Unremarkable IMPRESSION: No acute disease. SEPSIS Sepsis Screen Date sepsis recognized/suspect: Jan 14, 2025 Time Sepsis recognized/suspect: 1948 Recent Procedure: No On Antibiotic Therapy: No Respiratory Rate >20: No Heart Rate >90: No Temp<36 C (96.8 F) or >38.3 C: No SBP <90 or MAP <65 mmHG: No New Acute Mental Status Change: No Is the patient on CPAP, BIPAP,: No Physician Orders Insert/Manage Urinary Catheter QSHIFT (01/14/25 19:40) Field Liability Generalist (01/14/25 ) Urine Bacterial Culture (01/14/25 21:43) Levofloxacin 500mg (Levaquin 500mg/ 100m (01/15/25 22:00) Aspirin Tablet (01/15/25 10:00) Atorvastatin (Lipitor) (01/14/25 22:00) Fluoxetine Capsule (Prozac Capsule) (01/15/25 10:00) Albuterol Medneb (Ventolin Medneb) (01/14/25 21:45) Ipratropium Medneb (Atrovent Medneb) (01/14/25 21:45) Famotidine Injection (Pepcid Injection) (01/14/25 22:00) Allergies (01/14/25 21:43) Code Status (01/14/25 21:43) Sodium Chloride Lock (Saline Lock Ns) (01/14/25 22:00) Oxygen Per Hour (01/14/25 21:43) Ondansetron Hcl (Zofran) (01/14/25 21:45) Docusate Sodium Capsule (Colace Capsule) (01/14/25 21:45) Multiple Vitamin Tablet (Mvi Tab) (01/15/25 10:00) Fall Risk Precautions In Place QSHIFT (01/14/25 21:43) Complete Blood Count (01/15/25 04:00) Comprehensive Metabolic Panel (01/15/25 04:00) Cardiac Diet-2gna,Lofat,Lochol (01/15/25 Breakfast) Condition: Serious (01/14/25 21:43) Acetaminophen Tablet (Tylenol Tablet) (01/14/25 21:45) Maintain Bed Rest (01/14/25 21:43) Sequential Compression Device (01/14/25 ) Admit (01/14/25 23:23) Nitroglycerin Sublingual (Ntrostat Subli (01/14/25 23:30) Morphine Sulfate Injection (01/14/25 23:30) Stat Ekg For Chest Pain (01/14/25 23:23) Vital Signs Date Time Temp Pulse Resp B/P (MAP) Pulse Ox O2 Delivery O2 Flow Rate FiO2 01/14/25 23:04 70 18 118/64 01/14/25 22:09 70 18 107/46 98 2.0 28 01/14/25 20:00 61 18 107/46 (66) 97 01/14/25 20:00 70 01/14/25 19:51 98 Nasal Cannula* 2 28 01/14/25 19:40 70 17 99 Nasal Cannula* 2 28 01/14/25 18:20 71 18 97 Room Air 01/14/25 18:20 97.9 71 18 120/68 (85) 97 97.9 Laboratory Tests Test 01/14/25 12:04 White Blood Count 6.7 10^3/uL (4.4-10.8) Medications Medications Dose Ordered Sig/Asha Route Start Time Stop Time Status Last Admin Dose Admin Atorvastatin Calcium 20 mg HS PO 01/14/25 22:00 01/14/25 23:11 20 MG Famotidine 20 mg DAILY IV 01/14/25 22:00 01/14/25 23:11 20 MG Levofloxacin/ Dextrose 100 ml @ 100 mls/hr ONCE ONCE IV 01/14/25 21:45 01/14/25 22:44 DC 01/14/25 21:45 100 MLS/HR Morphine Sulfate 2 mg STK-MED ONCE .ROUTE 01/14/25 22:50 01/14/25 22:48 DC 01/14/25 23:04 2 MG Ondansetron HCl 4 mg Q4HP PRN IV 01/14/25 21:45 01/14/25 23:06 4 MG Sodium Chloride 10 ml Q8HR IV 01/14/25 22:00 01/14/25 22:00 10 ML Assessment/Plan Assessment/Plan Generalized weakness Urinary tract infection Acute respiratory distress TIA (transient ischemic attack) Plan 1. Admit to telemetry unit 2. Breathing treatment 3. Pain control management 4. Management of fluids and electrolytes 5. Consultation for hospitalist 6. Diagnostic tests chest x-ray 7. DVT prophylaxis-on SCDs 8. Repeat labs CBC, CMP in a.m. 9. Continue with current medical management 10. Treatment plan discussed with patient and RN. Patient verbalized understanding. Plan discussed with: Patient, Other (RN) My Orders Orders - LIBORIO DECKER DNP Procedure Category Date Status Time Urine Bacterial MELVIN 01/14/25 In Process Culture 21:43 Levofloxacin 500mg PHA 01/15/25 In Process (Levaquin 500mg/ 100m 22:00 Aspirin Tablet PHA 01/15/25 In Process 10:00 Atorvastatin (Lipitor) PHA 01/14/25 In Process 22:00 Fluoxetine Capsule PHA 01/15/25 In Process (Prozac Capsule) 10:00 Albuterol Medneb PHA 01/14/25 In Process (Ventolin Medneb) 21:45 Ipratropium Medneb PHA 01/14/25 In Process (Atrovent Medneb) 21:45 Famotidine Injection PHA 01/14/25 In Process (Pepcid Injection) 22:00 Allergies AME 01/14/25 In Process 21:43 Code Status CODE 01/14/25 Transmitted 21:43 Sodium Chloride Lock PHA 01/14/25 In Process (Saline Lock Ns) 22:00 Oxygen Per Hour RT 01/14/25 Transmitted 21:43 Ondansetron Hcl PHA 01/14/25 In Process (Zofran) 21:45 Docusate Sodium PHA 01/14/25 In Process Capsule (Colace 21:45 Multiple Vitamin PHA 01/15/25 In Process Tablet (Mvi Tab) 10:00 Fall Risk Precautions AME 01/14/[address] 21:43 Complete Blood Count LAB 01/15/25 Verified 04:00 Comprehensive LAB 01/15/25 Verified Metabolic Panel 04:00 Cardiac DIET 01/15/25 Transmitted Diet-2gna,Lofat,Lochol Breakfast Condition: Serious AME 01/14/25 In Process 21:43 Acetaminophen Tablet PHA 01/14/25 In Process (Tylenol Tablet) 21:45 Maintain Bed Rest AME 01/14/25 In Process 21:43 Sequential AME 01/14/25 In Process Compression Device Admit ADMIT 01/14/25 Verified 23:23 Nitroglycerin PHA 01/14/25 Verified Sublingual (Ntrostat 23:30 Morphine Sulfate PHA 01/14/25 Verified Injection 23:30 Stat Ekg For Chest AME 01/14/25 Verified Pain 23:23 Problem List: (1) Generalized weakness (2) UTI (urinary tract infection) (3) Acute respiratory distress (4) TIA (transient ischemic attack) Date of Service: Jan 14, 2025 Billing Provider: LIBORIO DECKER DNP Common Visit Codes: [id number] INP/OBS CARE (HIGH) LIBORIO DECKER DNP Jan 14, 2025 23:24
[2025-01-14] MEDS ORDERED: NITROGLYCERIN 0.4 MG SL TAB SL PRN (23:30)
[2025-01-15] VITALS (16 sets, daily range): BP systolic 104–115; BP diastolic 41–87; PULSE 63–72; RESP 12–20; TEMP 97.9–98; O2SAT 95–100
[2025-01-15] MEDS: IPRATROPIUM BROM 0.5 MG/2.5ML INH SOL NEB PRN (01:24)
[2025-01-15] MEDS: ALBUTEROL SULF 2.5 MG/0.5ML(0.5%) NEB SOLN NEB PRN (01:24)
[2025-01-15] MEDS: MORPHINE SULFATE INJ 2 MG/ml SYRG IV PRN ×2 (01:39→11:05)
[2025-01-15 07:03] LABS: Hematocrit 38.3 % (36.0-46.0); Hemoglobin 12.6 g/dL (12.2-16.2); Mean Corpuscular Hemoglobin 30.0 pg (28.0-32.0); Mean Corpuscular Volume 90.9 fL (80.0-100.0); Nucleated Red Blood Cells % 0.1 %
[2025-01-15 07:04] LABS: Alanine Aminotransferase 14 U/L (7-40); Alkaline Phosphatase 59 U/L (46-116); Anion Gap 9 (5-15); BUN/Creatinine Ratio 23.1 (10.0-20.0); Blood Urea Nitrogen 21 mg/dL (9-23); Calcium 8.9 mg/dL (8.7-10.4); Carbon Dioxide 25 mmol/L (20-31); Glucose 78 mg/dL (74-106); Potassium 4.7 mmol/L (3.5-5.1); Sodium 143 mmol/L (136-145)
[2025-01-15 07:05] LABS: Albumin 3.9 g/dL (3.2-4.8); Bilirubin, Total 0.5 mg/dL (0.2-1.0)
[2025-01-15 07:10] LABS: Chloride 109 mmol/L (98-107); Total Protein 5.3 g/dL (5.7-8.2)
--- NOTE | 2025-01-15 07:51 | DVHPNRES ---
Progress Note Date Seen: Jan 15, 2025 Resident Creating Document: ALAN ADAMSON RESIDENT Medical Necessity Reason Pt with a Central, PICC or Fol: Yes Subjective Review of Systems Niya Scott is a 79-year-old female with past medical history of HFrEF, CAD, CKD class 3, COPD group B, CVA, anxiety or depression, GERD, high lipids, hypertension, kidney stones, recurrent UTI, ovarian cyst, presented to the ER with chief complain of worsening cough. She also complains of chest pain since last 3 days, pain is substernal, pressure-like, 10 on 10 on intensity. She also complained of difficulty breathing, which has been worsening with eating, coughing. She reports living in an assisted living facility, where everyone has a cough. Previous hospitalization: ICU admission this month PMHx: Anemia, Anxiety, Asthma, CAD, CHF, CKF, COPD, CVA, Depression, GERD, Gout, High Lipids, HTN, Kidney Stones, PR, UTI'S, Ovarian Cysts, recurrent UTI PSHx: Appendectomy, CABG, Hysterectomy, Pacemaker, PTCA, 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 Home medication: She is unsure Allergic history: Ceftriaxone, hydrocodone ROS: Constitutional: Denies weight loss, fever and chills. HEENT: Denies changes in vision and hearing. Respiratory: Shortness of breath and cough Cardiovascular: Chest pain, difficulty breathing GI: Denies abdominal pain, nausea, vomiting and diarrhea. : Denies dysuria and urinary frequency. Musculoskeletal: Denies myalgias and joint pain Skin: Denies rash and pruritus. Neurological: Denies dizziness, headache, vision or hearing problems She was examined on bedside today, vitals stable. She is continuously coughing. She is complaining of difficulty breathing, mild substernal chest pain. Objective vital signs Vital Sign Date Time Temp Pulse Resp B/P (MAP) Pulse Ox O2 Delivery O2 Flow Rate FiO2 01/15/25 06:44 70 14 117/55 01/15/25 05:47 100 01/15/25 05:41 Nasal Cannula 2.0 01/15/25 05:41 28 01/14/25 18:20 97.9 97.9 Total Intake and Output 01/14/25 01/14/25 01/15/25 15:00 23:00 07:00 Output Total 300 ml Balance -300 ml medications Current Medications Medications Dose Ordered Sig/Asha Route Start Time Stop Time Status Last Admin Dose Admin Levofloxacin/ Dextrose 100 ml @ 100 mls/hr Q48H IV 01/15/25 22:00 Aspirin 81 mg DAILY PO 01/15/25 10:00 Atorvastatin Calcium 20 mg HS PO 01/14/25 22:00 01/14/25 23:11 20 MG Fluoxetine HCl 20 mg DAILY PO 01/15/25 10:00 Albuterol 2.5 mg Q4HPRN PRN NEB 01/14/25 21:45 01/15/25 05:41 2.5 MG Ipratropium [place] 0.5 mg Q4HPRN PRN NEB 01/14/25 21:45 01/15/25 01:24 0.5 MG Famotidine 20 mg DAILY IV 01/14/25 22:00 01/14/25 23:11 20 MG Sodium Chloride 10 ml Q8HR IV 01/14/25 22:00 01/15/25 06:00 10 ML Ondansetron HCl 4 mg Q4HP PRN IV 01/14/25 21:45 01/14/25 23:06 4 MG Docusate Sodium 100 mg BIDPRN PRN PO 01/14/25 21:45 Multivitamins 1 tab DAILY PO 01/15/25 10:00 Acetaminophen 650 mg Q6HP PRN PO 01/14/25 21:45 01/14/25 22:15 650 MG Nitroglycerin 0.4 mg Q5MINP PRN SL 01/14/25 23:30 Morphine Sulfate 2 mg Q30M PRN IV 01/14/25 23:30 01/15/25 06:44 2 MG Examination General: Patient alert and oriented in person, place and time. Patient following commands. HEENT: Normocephalic, atraumatic, moist mucous membranes Respiratory/pulmonary: Clear lungs bilaterally, vesicular murmurs present in almost all lung kelly, no associated crackles or wheezes. Cardiovascular: Normal heart sounds S1 and S2 with no associated murmurs Abdomen: Generalized, suprapubic abdominal tenderness Extremities: There is no peripheral edema present at the lower extremities. Peripheral Pulses: 3+ Radial (R). 3+ Radial (L). 3+ Dorsalis pedis (R). 3+ Dorsalis pedis(L) Skin: No rashes or pruritus, there is no sacral edema present at this time. Neurological: Intact cranial nerves with no focal neurologic deficits laboratory and microbiology Laboratory Tests 01/15/25 05:57 Test 01/15/25 05:57 Range/Units Serum Glucose 78 74-106 mg/dL Problem List/Assessment/Plan Problem List/Assessment/Plan Acute exacerbation of COPD Acute exacerbation of asthma, possible Continue on med neb treatment, IV fluids Influenza, COVID negative Complicated UTI History of ESBL, Proteus mirabilis UTI Continue on levofloxacin, urine culture sent History of HLD/HTN/CAD/CVA/PR/depression/GERD/gout/ovarian cyst Medicine reconciled Generalized weakness Urinary tract infection History of TIA (transient ischemic attack) DIET: Cardiac DVT prophylaxis SCD CODE STATUS: Goals of care discussed with patient at bedside for more than 35 minutes. Full code DISPOSITION: Med/surge Patient's status and plan discussed with the patient. Case discussed with Dr. Shepard. Plan discussed with: Patient Date of Service: Jan 15, 2025 Billing Provider: WINSOME SHEPARD MD Common Visit Codes: [id number] INP/OBS CARE(HIGH) ALAN ADAMSON RESIDENT Jan 15, 2025 07:51 WINSOME SHEPARD MD Jan 21, 2025 22:02
[2025-01-15] MEDS: MULTIPLE VITAMIN TAB PO SCH (10:14)
[2025-01-15] MEDS ORDERED: MORPHINE SULFATE INJ 2 MG/ml SYRG IV PRN (10:45)
[2025-01-15 12:54] LABS: COVID19 ANTIGEN SOFIA FIA NEGATIVE (NEGATIVE)
[2025-01-15] MEDS: ALBUTEROL SULF 2.5 MG/0.5ML(0.5%) NEB SOLN NEB SCH (19:01)
[2025-01-15] MEDS: IPRATROPIUM BROM 0.5 MG/2.5ML INH SOL NEB SCH (19:02)
[2025-01-16] VITALS (17 sets, daily range): BP systolic 108–120; BP diastolic 52–85; PULSE 62–82; RESP 18–20; TEMP 97.8–98.4; O2SAT 85–100
--- NOTE | 2025-01-16 10:51 | DVHPNRES ---
Progress Note Date Seen: Jan 16, 2025 Resident Creating Document: SUZANNE KHAN RESIDENT Medical Necessity Reason Pt with a Central, PICC or Fol: Yes Subjective Review of Systems Patient seen at bedside. She still complains of cough, shortness of breath and dysuria. On examination there is tenderness to the suprapubic area and bilateral flanks. On levofloxacin. Following urine culture. Objective vital signs Vital Sign Date Time Temp Pulse Resp B/P (MAP) Pulse Ox O2 Delivery O2 Flow Rate FiO2 01/16/25 10:31 66 18 147/63 01/16/25 09:40 99 01/16/25 09:34 Nasal Cannula 2.0 01/16/25 09:34 28 01/16/25 08:00 97.8 97.8 Total Intake and Output 01/15/25 01/15/25 01/16/25 15:00 23:00 07:00 Intake Total 400 ml 250 ml Output Total 400 ml 275 ml Balance 0 ml -25 ml medications Current Medications Medications Dose Ordered Sig/Asha Route Start Time Stop Time Status Last Admin Dose Admin Levofloxacin/ Dextrose 100 ml @ 100 mls/hr Q48H IV 01/15/25 22:00 01/15/25 21:11 100 MLS/HR Aspirin 81 mg DAILY PO 01/15/25 10:00 01/16/25 09:11 81 MG Atorvastatin Calcium 20 mg HS PO 01/14/25 22:00 01/15/25 21:11 20 MG Fluoxetine HCl 20 mg DAILY PO 01/15/25 10:00 01/16/25 09:11 20 MG Famotidine 20 mg DAILY IV 01/14/25 22:00 01/16/25 09:11 20 MG Sodium Chloride 10 ml Q8HR IV 01/14/25 22:00 01/16/25 05:23 10 ML Ondansetron HCl 4 mg Q4HP PRN IV 01/14/25 21:45 01/16/25 10:30 4 MG Multivitamins 1 tab DAILY PO 01/15/25 10:00 01/16/25 09:11 1 TAB Acetaminophen 650 mg Q6HP PRN PO 01/14/25 21:45 01/14/25 22:15 650 MG Nitroglycerin 0.4 mg Q5MINP PRN SL 01/14/25 23:30 Morphine Sulfate 2 mg Q30M PRN IV 01/14/25 23:30 01/15/25 16:41 2 MG Morphine Sulfate 2 mg Q4HPRN PRN IV 01/15/25 10:45 01/16/25 10:31 2 MG Albuterol 2.5 mg Q4HWA NEB 01/15/25 14:00 01/16/25 09:33 2.5 MG Ipratropium [place] 0.5 mg Q4HWA NEB 01/15/25 14:00 01/16/25 09:34 0.5 MG Examination General Appearance: Alert, Oriented X3, Cooperative, No acute distress HEENT: Atraumatic, PERRLA, EOMI, Mucous membrane moist/pink Respiratory: Clear to auscultation, Normal air movement Cardiovascular: Regular rate, Normal S1, Normal S2, No murmurs, no chest wall tenderness Abdominal: Tenderness to the suprapubic area and bilateral flags present Extremities: No clubbing, No cyanosis, No edema, Normal pulses, No tenderness/swelling Skin: No rashes, No breakdown, No significant lesion Neuro: Normal gait, Normal speech, Strength at 5/5 X4 ext, Normal tone, Sensation intact, Cranial nerves 3-12 NL, Reflexes 2+ Psych/Mental Status: Mental status NL, Mood NL laboratory and microbiology Laboratory Tests 01/15/25 05:57 Test 01/15/25 05:57 Range/Units Serum Glucose 78 74-106 mg/dL Microbiology Date/Time Source Procedure Growth Status 01/14/25 19:56 Voided Urine Urine Culture - Preliminary Resulted Problem List/Assessment/Plan Problem List/Assessment/Plan Acute exacerbation of COPD Acute exacerbation of asthma, possible Continue on med neb treatment, IV fluids Influenza, COVID negative Complicated UTI History of ESBL, Proteus mirabilis UTI Continue on levofloxacin, urine culture sent History of HLD/HTN/CAD/CVA/MA/depression/GERD/gout/ovarian cyst Medicine reconciled Generalized weakness Urinary tract infection History of TIA (transient ischemic attack) DIET: Cardiac DVT prophylaxis SCD CODE STATUS: Goals of care discussed with patient at bedside for more than 35 minutes. Full code DISPOSITION: Med/surge Patient's status and plan discussed with the patient. Case discussed with Dr. Shepard. Plan discussed with: Patient Plan discussed with: Patient Date of Service: Jan 16, 2025 Billing Provider: LUIS REICH MD Common Visit Codes: [id number] INP/OBS CARE(HIGH) SUZANNE KHAN RESIDENT Jan 16, 2025 10:50 LUIS REICH MD Jan 17, 2025 09:25
[2025-01-17] VITALS (20 sets, daily range): BP systolic 112–134; BP diastolic 50–78; PULSE 68–94; RESP 17–20; TEMP 97.2–98.6; O2SAT 6–100
[2025-01-17] MEDS ORDERED: LEVO750T40 PO (12:38)
--- NOTE | 2025-01-17 16:28 | DVHPNRES ---
Progress Note Date Seen: Jan 17, 2025 Resident Creating Document: ALAN ADAMSON RESIDENT Medical Necessity Reason Pt with a Central, PICC or Fol: Yes Subjective Review of Systems Brief history and review of system on admission: Niya Scott is a 79-year-old female with past medical history of HFrEF, CAD, CKD class 3, COPD group B, CVA, anxiety or depression, GERD, high lipids, hypertension, kidney stones, recurrent UTI, ovarian cyst, presented to the ER with chief complain of worsening cough. She also complains of chest pain since last 3 days, pain is substernal, pressure-like, 10 on 10 on intensity. She also complained of difficulty breathing, which has been worsening with eating, coughing. She reports living in an assisted living facility, where everyone has a cough. Previous hospitalization: ICU admission this month PMHx: Anemia, Anxiety, Asthma, CAD, CHF, CKF, COPD, CVA, Depression, GERD, Gout, High Lipids, HTN, Kidney Stones, [place], UTI'S, Ovarian Cysts, recurrent UTI PSHx: Appendectomy, CABG, Hysterectomy, Pacemaker, PTCA, 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 Home medication: She is unsure Allergic history: Ceftriaxone, hydrocodone ROS: Constitutional: Denies weight loss, fever and chills. HEENT: Denies changes in vision and hearing. Respiratory: Shortness of breath and cough Cardiovascular: Chest pain, difficulty breathing GI: Denies abdominal pain, nausea, vomiting and diarrhea. : Denies dysuria and urinary frequency. Musculoskeletal: Denies myalgias and joint pain Skin: Denies rash and pruritus. Neurological: Denies dizziness, headache, vision or hearing problems 01/16/2024:Vitals stable. She is continuously coughing. She is complaining of difficulty breathing, mild substernal chest pain. 01/17/2025: She was examined at bedside today. She continues to complain of pain abdomen. PT consulted for evaluation of SNF. Objective vital signs Vital Sign Date Time Temp Pulse Resp B/P (MAP) Pulse Ox O2 Delivery O2 Flow Rate FiO2 01/17/25 15:20 77 18 122/72 01/17/25 14:47 100 01/17/25 14:41 Nasal Cannula* 2 28 01/17/25 12:48 97.5 97.5 Total Intake and Output 801/16/25 01/17/25 15:00 23:00 07:00 Intake Total 700 ml 260 ml Output Total 300 ml 150 ml Balance 400 ml 110 ml medications Current Medications Medications Dose Ordered Sig/Asha Route Start Time Stop Time Status Last Admin Dose Admin Levofloxacin/ Dextrose 100 ml @ 100 mls/hr Q48H IV 01/15/25 22:00 01/15/25 21:11 100 MLS/HR Aspirin 81 mg DAILY PO 01/15/25 10:00 01/17/25 09:31 81 MG Atorvastatin Calcium 20 mg HS PO 01/14/25 22:00 01/16/25 20:48 20 MG Fluoxetine HCl 20 mg DAILY PO 01/15/25 10:00 01/17/25 09:31 20 MG Famotidine 20 mg DAILY IV 01/14/25 22:00 01/17/25 09:31 20 MG Sodium Chloride 10 ml Q8HR IV 01/14/25 22:00 01/17/25 15:22 10 ML Ondansetron HCl 4 mg Q4HP PRN IV 01/14/25 21:45 01/17/25 15:20 4 MG Multivitamins 1 tab DAILY PO 01/15/25 10:00 01/17/25 09:31 1 TAB Acetaminophen 650 mg Q6HP PRN PO 01/14/25 21:45 01/14/25 22:15 650 MG Nitroglycerin 0.4 mg Q5MINP PRN SL 01/14/25 23:30 Morphine Sulfate 2 mg Q30M PRN IV 01/14/25 23:30 01/17/25 05:05 2 MG Morphine Sulfate 2 mg Q4HPRN PRN IV 01/15/25 10:45 01/17/25 15:20 2 MG Albuterol 2.5 mg Q4HWA NEB 01/15/25 14:00 01/17/25 14:41 2.5 MG Ipratropium [place] 0.5 mg Q4HWA [facility] 01/15/25 14:00 01/17/25 14:41 0.5 MG Examination General: Patient alert and oriented in person, place and time. Patient following commands. HEENT: Normocephalic, atraumatic, moist mucous membranes Respiratory/pulmonary: Clear lungs bilaterally, vesicular murmurs present in almost all lung kelly, no associated crackles or wheezes. Cardiovascular: Normal heart sounds S1 and S2 with no associated murmurs Abdomen: Mild tenderness in bilateral flank, suprapubic region Extremities: There is no peripheral edema present at the lower extremities. Peripheral Pulses: 3+ Radial (R). 3+ Radial (L). 3+ Dorsalis pedis (R). 3+ Dorsalis pedis(L) Skin: No rashes or pruritus, there is no sacral edema present at this time. Neurological: Intact cranial nerves with no focal neurologic deficits laboratory and microbiology Laboratory Tests 01/15/25 05:57 Test 01/15/25 05:57 Range/Units Serum Glucose 78 74-106 mg/dL Microbiology Date/Time Source Procedure Growth Status 01/16/25 00:20 Nose MRSA Screen - Final Complete 01/15/25 14:25 Blood Blood Culture - Preliminary NO GROWTH AFTER 48 HOURS OF INCUBATION. Resulted 01/14/25 19:56 Voided Urine Urine Culture - Final Complete Problem List/Assessment/Plan Problem List/Assessment/Plan Acute exacerbation of COPD Acute exacerbation of asthma, possible Continue on med neb treatment, IV fluids Influenza, COVID negative Complicated UTI History of ESBL, Proteus mirabilis UTI Continue on levofloxacin, urine culture revealed mixed zach History of HLD/HTN/CAD/CVA/AL/depression/GERD/gout/ovarian cyst Medicine reconciled Generalized weakness Urinary tract infection History of TIA (transient ischemic attack) DIET: Cardiac DVT prophylaxis SCD CODE STATUS: Goals of care discussed with patient at bedside for more than 25 minutes. Full code DISPOSITION: Med/surge Patient's status and plan discussed with the patient. Case discussed with Dr. Reich Plan discussed with: Patient My Orders My Orders Orders - AALN ADAMSON RESIDENT Procedure Category Date Status Time Pt Request For Service PT 01/17/25 Logged 12:43 Dietary Evaluation Review Comments: 1) Initiate Ensure High Protein qd 2) Encourage optimal PO intake 3) Follow-up with cardiology, pulmonology, and urology 4) Continue to monitor I&O, labs, and skin integrity Expected Outcomes/Goals: 1) appetite and labs to improve 2) f/u in 3-5 days Date of Service: Jan 17, 2025 Billing Provider: LUIS REICH MD Common Visit Codes: [id number] INP/OBS CARE(HIGH) ALAN ADAMSON RESIDENT Jan 17, 2025 16:28 LUIS REICH MD Jan 17, 2025 23:09
[2025-01-18] VITALS (20 sets, daily range): BP systolic 106–133; BP diastolic 57–80; PULSE 66–94; RESP 14–20; TEMP 97.6–98.8; O2SAT 93–100
[2025-01-18] MEDS: ONDANSETRON HCL 4 MG/2 ML VIAL IV PRN (10:18)
[2025-01-18] MEDS: OXYBUTYNIN CHL 5 MG TAB PO ONE (15:28)
--- NOTE | 2025-01-18 19:19 | DVHPNRES ---
Progress Note Date Seen: Jan 18, 2025 Resident Creating Document: JANIA CABRAL RESIDENT Medical Necessity Reason Pt with a Central, PICC or Fol: Yes Subjective Review of Systems Brief history and review of system on admission: Niya Scott is a 79-year-old female with past medical history of HFrEF, CAD, CKD class 3, COPD group B, CVA, anxiety or depression, GERD, high lipids, hypertension, kidney stones, recurrent UTI, ovarian cyst, presented to the ER with chief complain of worsening cough. She also complains of chest pain since last 3 days, pain is substernal, pressure-like, 10 on 10 on intensity. She also complained of difficulty breathing, which has been worsening with eating, coughing. She reports living in an assisted living facility, where everyone has a cough. Previous hospitalization: ICU admission this month PMHx: Anemia, Anxiety, Asthma, CAD, CHF, CKF, COPD, CVA, Depression, GERD, Gout, High Lipids, HTN, Kidney Stones, [place], UTI'S, Ovarian Cysts, recurrent UTI PSHx: Appendectomy, CABG, Hysterectomy, Pacemaker, PTCA, 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 Home medication: She is unsure Allergic history: Ceftriaxone, hydrocodone 01/18/2025 interval events: Today the patient reports having mild shortness of breath, urinary frequency, urgency and burning sensation. Levofloxacin continued. All her previous urine cultures noted mixed bacteria. The patient was started on oxybutynin to improved the symptoms of frequency. She denies any chest pain, shortness of breath, fever, abdominal pain or any other complaints today. Objective vital signs Vital Sign Date Time Temp Pulse Resp B/P (MAP) Pulse Ox O2 Delivery O2 Flow Rate FiO2 01/18/25 18:46 86 16 96 01/18/25 18:40 Nasal Cannula 2.0 01/18/25 18:40 28 01/18/25 17:04 98.5 111/77 (88) 98.5 Total Intake and Output 01/17/25 01/17/25 01/18/25 15:00 23:00 07:00 Intake Total 476 ml 400 ml 250 ml Output Total 550 ml 275 ml Balance 476 ml -150 ml -25 ml medications Current Medications Medications Dose Ordered Sig/Asha Route Start Time Stop Time Status Last Admin Dose Admin Levofloxacin/ Dextrose 100 ml @ 100 mls/hr Q48H IV 01/15/25 22:00 01/17/25 20:53 100 MLS/HR Aspirin 81 mg DAILY PO 01/15/25 10:00 01/18/25 09:39 81 MG Atorvastatin Calcium 20 mg HS PO 01/14/25 22:00 01/17/25 20:46 20 MG Fluoxetine HCl 20 mg DAILY PO 01/15/25 10:00 01/18/25 09:39 20 MG Famotidine 20 mg DAILY IV 01/14/25 22:00 01/18/25 09:39 20 MG Sodium Chloride 10 ml Q8HR IV 01/14/25 22:00 01/18/25 09:40 10 ML Multivitamins 1 tab DAILY PO 01/15/25 10:00 01/18/25 09:39 1 TAB Acetaminophen 650 mg Q6HP PRN PO 01/14/25 21:45 01/18/25 17:43 650 MG Morphine Sulfate 2 mg Q30M PRN IV 01/14/25 23:30 01/17/25 05:05 2 MG Morphine Sulfate 2 mg Q4HPRN PRN IV 01/15/25 10:45 01/18/25 15:28 2 MG Albuterol 2.5 mg Q4HWA NEB 01/15/25 14:00 01/18/25 18:40 2.5 MG Ipratropium [place] 0.5 mg Q4HWA NEB 01/15/25 14:00 01/18/25 18:39 0.5 MG Ondansetron HCl 4 mg Q4HPRN PRN IV 01/18/25 09:30 01/18/25 15:28 4 MG Oxybutynin Chloride 5 mg Q12HR PO 01/18/25 22:00 Examination Pt is lying on bed General Appearance: Alert, Oriented X3, Cooperative, Mild distress HEENT: Atraumatic, Mucous membranes moist/pink Respiratory: Clear to auscultation, Normal air movement, No added sounds Cardiovascular: Regular rate, Normal S1, Normal S2, No murmurs Abdominal/ : Active bowel sounds, Soft, no distention, lower abdomen tenderness Extremities: No edema, Normal pulses, No tenderness/swelling Skin: No Significant rash, except past surgical scars Neuro: Normal speech, sensorimotor deficits none Psych/Mental Status: Mental status NL, Mood NL Nurse was there as mask designer during examination laboratory and microbiology Laboratory Tests 01/15/25 05:57 Test 01/15/25 05:57 Range/Units Serum Glucose 78 74-106 mg/dL Microbiology Date/Time Source Procedure Growth Status 01/16/25 00:20 Nose MRSA Screen - Final Complete 01/15/25 14:25 Blood Blood Culture - Preliminary NO GROWTH AFTER 72 HOURS OF INCUBATION. Resulted 01/14/25 19:56 Voided Urine Urine Culture - Final Complete Problem List/Assessment/Plan Problem List/Assessment/Plan Acute exacerbation of COPD Acute exacerbation of asthma, possible Continue on med neb treatment, IV fluids Influenza, COVID negative Complicated UTI History of ESBL, Proteus mirabilis UTI Continue on levofloxacin, urine culture revealed mixed zach Oxybutynin started History of HLD/HTN/CAD/CVA/MD/depression/GERD/gout/ovarian cyst Medicine reconciled Generalized weakness Urinary tract infection History of TIA (transient ischemic attack) DIET: Cardiac DVT prophylaxis SCD Diet: Cardiac Goals of care discussed with the patient for more than 27 minutes: Full code status Case discussed with Dr. Shepard, patient and RN Cosigning senior Resident: No Michelle, agree with progress note Plan discussed with: Patient, Other (RN) Dietary Evaluation Review Comments: 1) Initiate Ensure High Protein qd 2) Encourage optimal PO intake 3) Follow-up with cardiology, pulmonology, and urology 4) Continue to monitor I&O, labs, and skin integrity Expected Outcomes/Goals: 1) appetite and labs to improve 2) f/u in 3-5 days Date of Service: Jan 18, 2025 Billing Provider: WINSOME SHEPARD MD Common Visit Codes: [id number] INP/OBS CARE(HIGH) JANIA CABRAL RESIDENT Jan 18, 2025 19:19 NO MICHELLE RESIDENT Jan 20, 2025 00:04 WINSOME SHEPARD MD Jan 21, 2025 22:41
[2025-01-18 20:39] LABS: Hematocrit 38.8 % (36.0-46.0); Hemoglobin 13.0 g/dL (12.2-16.2); Mean Corpuscular Hemoglobin 30.2 pg (28.0-32.0); Mean Corpuscular Volume 90.3 fL (80.0-100.0); Nucleated Red Blood Cells % 0.1 %
[2025-01-18 20:57] LABS: Alanine Aminotransferase 11 U/L (7-40); Albumin 3.9 g/dL (3.2-4.8); Alkaline Phosphatase 64 U/L (46-116); Anion Gap 8 (5-15); BUN/Creatinine Ratio 16.7 (10.0-20.0); Blood Urea Nitrogen 17 mg/dL (9-23); Calcium 9.2 mg/dL (8.7-10.4); Carbon Dioxide 27 mmol/L (20-31); Potassium 4.4 mmol/L (3.5-5.1); Sodium 143 mmol/L (136-145)
[2025-01-18 20:58] LABS: Bilirubin, Total 0.4 mg/dL (0.2-1.0)
[2025-01-18 21:05] LABS: Chloride 108 mmol/L (98-107); Glucose 123 mg/dL (74-106); Total Protein 5.3 g/dL (5.7-8.2)
[2025-01-18] MEDS: OXYBUTYNIN CHL 5 MG TAB PO SCH (21:08)
[2025-01-19] VITALS (10 sets, daily range): BP systolic 117–131; BP diastolic 47–83; PULSE 67–89; RESP 14–20; TEMP 98–98.7; O2SAT 93–96
--- NOTE | 2025-01-19 15:07 | DVHDSRES ---
Discharge Summary Date of Admission Resident Creating Document: JANIA POSADAS RESIDENT Jan 14, 2025 at 23:23 Date of Discharge: Jan 19, 2025 Admitting Diagnosis Acute exacerbation of COPD Possible asthma exacerbation Complicated UTI, history of ESBL/Proteus UTI Labs/Diagnostic Data: Laboratory Results Test 01/18/25 20:13 01/15/25 14:25 01/15/25 10:33 01/15/25 05:57 White Blood Count 10.0 10^3/uL (4.4-10.8) Red Blood Count 4.30 10^6/uL (4.0-5.20) Hemoglobin 13.0 g/dL (12.2-16.2) Hematocrit 38.8 % (36.0-46.0) Mean Corpuscular Volume 90.3 fL (80.0-100.0) Mean Corpuscular Hemoglobin 30.2 pg (28.0-32.0) Mean Corpuscular Hemoglobin Concent 33.4 g/dL (32.0-36.0) Red Cell Distribution Width 16.7 % (11.8-14.3) Platelet Count 291 10^3/uL (140-450) Mean Platelet Volume 8.2 fL (6.9-10.8) Neutrophils (%) (Auto) 65.2 % (37.0-80.0) Lymphocytes (%) (Auto) 22.0 % (10.0-50.0) Monocytes (%) (Auto) 10.1 % (0.0-12.0) Eosinophils (%) (Auto) 2.3 % (0.0-7.0) Basophils (%) (Auto) 0.4 % (0.0-2.0) Neutrophils # (Auto) 6.5 10 ^3/uL (1.6-8.6) Lymphocytes # (Auto) 2.2 10 ^3/uL (0.4-5.4) Monocytes # (Auto) 1.0 10 ^3/uL (0-1.3) Eosinophils # (Auto) 0.2 10 ^3/uL (0-0.8) Basophils # (Auto) 0 10 ^3/uL (0-0.2) Nucleated Red Blood Cells 0.1 % Sodium Level 143 mmol/L (136-145) Potassium Level 4.4 mmol/L (3.5-5.1) Chloride Level 108 mmol/L (98-107) Carbon Dioxide Level 27 mmol/L (20-31) Anion Gap 8 (5-15) Blood Urea Nitrogen 17 mg/dL (9-23) Creatinine 1.02 mg/dL (0.550-1.02) Glomerular Filtration Rate Calc 56 mL/min (>90) BUN/Creatinine Ratio 16.7 (10.0-20.0) Serum Glucose 123 mg/dL (74-106) Calcium Level 9.2 mg/dL (8.7-10.4) Total Bilirubin 0.4 mg/dL (0.2-1.0) Aspartate Amino Transferase (AST) 20 U/L (13-40) Alanine Aminotransferase (ALT) 11 U/L (7-40) Alkaline Phosphatase 64 U/L (46-116) Total Protein 5.3 g/dL (5.7-8.2) Albumin 3.9 g/dL (3.2-4.8) Lactic Acid Level 1.4 mmol/L (0.4-2.0) Influenza Type A Antigen Negative (Negative) Influenza Type B Antigen Negative (Negative) SARS-CoV-2 Antigen (Rapid) Negative (NEGATIVE) Lipase 15 U/L (12-53) Test 01/14/25 19:56 01/14/25 19:25 01/14/25 15:25 01/14/25 12:04 Urine Color Yellow (Yellow) Urine Clarity Clear (Clear) Urine pH 5.5 (5.0-9.0) Urine Specific [place] 1.025 (1.001-1.035) Urine Protein Negative (Negative) Urine Ketones Negative (Negative) Urine Blood Negative /uL (Negative) Urine Nitrite 2+ (Negative) Urine Bilirubin Negative (Negative) Urine Urobilinogen Normal mg/dL (Negative) Urine Leukocyte Esterase 2+ /uL (Negative) Urine RBC 2 /hpf (0 - 4) Urine Microscopic WBC 54 /HPF (0-5) Urine Squamous Epithelial Cells Few /hpf (<5) Urine Bacteria Many /hpf (None Seen) Urine Hyaline Casts Few /lpf (0 - 2) Urine Mucus Few (None Seen) Urine Glucose Normal mg/dL (Normal) POC Glucose 97 mg/dl (70-106) Troponin I High Sensitivity 23 ng/L (</=34) B-Type Natriuretic Peptide 544.65 pg/mL (0-100) Other Laboratory Tests 01/18/25 20:13 Brief Hx & Hospital Course: Ms. Niya Scott, with a significant past medical history of HFrEF s/p STRUCTURAL WELDER- D, CAD s/p CABG and multiple PCI, CKD stage 3, COPD group B, CVA, anxiety, GERD, hyperlipidemia, hypertension, recurrent UTIs, and ovarian cysts, presented with worsening cough, dyspnea, and chest discomfort of pressure-like quality. She also reported increased shortness of breath with exertion, eating, and coughing. She resides in an assisted living facility. On admission, she was treated for acute COPD exacerbation with nebulized bronchodilators, IV fluids, IV steroids, and supportive care. Infectious workup for influenza and COVID was negative. She was also evaluated for complicated UTI given her history of recurrent infections, ESBL, and Proteus mirabilis. Current urine cultures revealed mixed zach. She was maintained on levofloxacin and started on oxybutynin for bladder symptoms, with subsequent improvement in urgency and frequency. Her comorbid conditionsincluding hypertension, CAD, prior CVA, depression, GERD, gout, and ovarian cystwere addressed, and her medications were reconciled. She remained hemodynamically stable and did not report chest pain, worsening dyspnea, or abdominal pain during her hospital stay. In condition to be discharged to assisted living facility. Was granted under optimal medical therapy, gave her advice on healthy lifestyle habits and follow-up with PCP, resume specialist, converter supervisor and urologist. Discharge Medications: Continue home medications as reconciled Levofloxacin Oxybutynin for urinary symptoms Follow-up: Primary Care Provider within 1 week for medication and symptom review General Appearance: Alert, Oriented X3, Cooperative, Mild distress HEENT: Atraumatic, Mucous membranes moist/pink Respiratory: Clear to auscultation, Normal air movement, No added sounds Cardiovascular: Regular rate, Normal S1, Normal S2, No murmurs Abdominal/ : Active bowel sounds, Soft, no distention, lower abdomen tenderness Extremities: No edema, Normal pulses, No tenderness/swelling Skin: No Significant rash, except past surgical scars Neuro: Normal speech, sensorimotor deficits none Psych/Mental Status: Mental status NL, Mood NL Nurse was there as sequins stringer during examination Case discussed with Dr Devyn Chavarria senior Resident: No Michelle, agree with discharge summary Operations or Procedures CHEST RADIOGRAPH Indication: sob Technique: Single frontal view of the chest was obtained COMPARISON: XY CHEST PORTABLE on DOS: 01/08/25, XY CHEST PORTABLE on DOS: 01/07/25, XY CHEST PORTABLE on DOS: 01/06/25, XY CHEST PORTABLE on DOS: 01/03/25, XY CHEST PORTABLE on DOS: 12/19/24 FINDINGS: Lines and Tubes: Median sternotomy. Left chest AICD Lungs: Clear Pleura: No effusion. No pneumothorax. Cardiomediastinal contours: Unremarkable Bones: Unremarkable IMPRESSION: No acute disease Condition at Discharge: Stable Final Diagnosis/Problems List Acute exacerbation of COPD Possible asthma exacerbation Complicated UTI, history of ESBL/Proteus UTI Hypertension CAD s/p CABG and multiple PCI CKD stage 3 Prior CVA HFrEF s/p STRUCTURAL WELDER-D Depression GERD Gout Hyperlipidemia Ovarian cysts Generalized weakness Discharge Disposition: Assisted Living Facility Discharge Instruct/Medications Diet: Consistent carbohydrate, Cardiac 2g Na,low cholest Activity: Light activity Follow Up/Referral: dc clinic Medications: see prescription Scheduled Acetaminophen (Acetaminophen), 650 MG PO TID Ascorbic Acid (Vitamin C Tablet), 1 TAB PO BID, (Reported) Aspirin (Aspir-Low), 1 TAB PO DAILY, (Reported) Atorvastatin Calcium (Atorvastatin Calcium), 40 MG PO HS Cholecalciferol (Vitamin D3), 1 TAB PO BID, (Reported) Clopidogrel Bisulfate (Clopidogrel), 75 MG PO DAILY Duloxetine Hydrochloride (Duloxetine Hydrochloride), 30 MG PO DAILY Fluticasone-Salmeterol (Fluticasone Propionate/SA 250-50 Mcg/Dose), 1 PUFF INH BID, (Reported) Levofloxacin Hemihydrate (Levaquin 500 Mg), 1 TAB PO DAILY Levofloxacin Hemihydrate (Levofloxacin), 750 MG PO DAILY Metoprolol Succinate (Metoprolol Succinate Er), 1 TAB PO DAILY Multiple Vitamin (Tab-A-Radha), 1 TAB PO DAILY, (Reported) Oxybutynin Chloride (Oxybutynin Chloride), 5 MG PO Q8HR Oxycodone W/ Acetaminophen (Percocet 5/325MG), 1 TAB PO QID Pantoprazole Sodium Sesquihydr (Pantoprazole Sodium), 1 TAB PO DAILY, (Reported) Phenazopyridine HCl (Eq Urinary Pain Relief Ma), 99.5 MG PO TID Ranolazine (Ranolazine ER), 500 MG PO BID Spironolactone (Aldactone), 25 MG PO DAILY Scheduled PRN Albuterol Sulfate (Albuterol Sulfate Hfa), 2 PUFF INH Q4HPRN PRN for dyspnea, (Reported) Ipratropium-Albuterol (Ipratropium [place]/Albut), 1 VIAL NEB Q6HPRN PRN for SHORTNESS OF BREATH, (Reported) Polyethylene Glycol 3350 (Miralax), 17 GM PO DAILY PRN for FOR CONSTIPATION, (Reported) Discontinued Medications Fluoxetine HCl (Pmdd) (Fluoxetine HCl), 20 MG PO DAILY, (Reported) Discharge Statement: "Patient was advised to return to the ER or call 911 if any headaches, dizziness, shortness of breath, chest pain, abdominal pain, bleeding, fevers, or worsening of medical condition. Patient was counseled about treatment plan, medications, possible side effects, patientverbalized understanding. All questions were answered to the best of my ability. This discharge took greater then 30 minutes in planning, reviewing documentation, counseling the patient, and discussing with other team members." ASSESSMENT ASSESSMENT Assessment generalized weakness Date of Service: Jan 19, 2025 Billing Provider: WINSOME GOMEZ MD Common Visit Codes: 90427-SIO/OBS DISCH DAY >30min JANIA POSADAS RESIDENT Jan 19, 2025 15:07 NO MICHELLE RESIDENT Jan 21, 2025 21:38 WINSOME GOMEZ MD Jan 26, 2025 21:28
== END 2025-01-19 12:45 | disposition home or self-care (01) | DRG 202 ==
LOC: EDBD 10:42 → ER 10:42 → OVERFLOW 23:23 → TELE-WESTW 01-15 15:24
PROVIDERS: ADMIT Student in an Organized Health Care Education/Training Program; ATTEND Emergency Medicine
DX: J45.901 Unspecified asthma with (acute) exacerbation (principal); G45.9 Transient cerebral ischemic attack, unspecified; J44.1 Chronic obstructive pulmonary disease with (acute) exacerbation; I13.0 Hypertensive heart and chronic kidney disease with heart failure and stage 1 through stage 4 chronic kidney disease, or unspecified chronic kidney disease; N39.0 Urinary tract infection, site not specified; I50.22 Chronic systolic (congestive) heart failure; N18.30 Chronic kidney disease, stage 3 unspecified; Z20.822 Contact with and (suspected) exposure to COVID-19; F41.9 Anxiety disorder, unspecified; E78.5 Hyperlipidemia, unspecified; K21.9 Gastro-esophageal reflux disease without esophagitis; I25.10 Atherosclerotic heart disease of native coronary artery without angina pectoris; I25.2 Old myocardial infarction; Z95.1 Presence of aortocoronary bypass graft; Z90.710 Acquired absence of both cervix and uterus; Z90.49 Acquired absence of other specified parts of digestive tract; Z88.5 Allergy status to narcotic agent; Z88.1 Allergy status to other antibiotic agents; Z87.442 Personal history of urinary calculi; Z86.73 Personal history of transient ischemic attack (TIA), and cerebral infarction without residual deficits
CPT/HCPCS: 36415; 71045; 80048; 80053; 81001; 82962; 83605; 83690; 83880; 84484; 85025; 87040; 87081; 87086; 87426; 87804; 94640; 96365; 97110; 97116; 97163; G0378; J1956; J2405; J3490

== ENCOUNTER 2025-02-04 06:06 | Inpatient (IN) | payer OTHER, MEDICAID ==
[~2025-02-04] VITALS: Ht 162.6 cm; Wt 66.8 kg
[~2025-02-04 06:06] MED LIST changes: -FLUO1TAB14 PO; +LEVO750T40 PO
--- NOTE | 2025-02-04 06:46 | ED.PDOC ---
Netta. trauma (HPI) HPI Comments 79 y/o F, BIBA, with PMHx of anemia, anxiety, asthma, CAD, CHF, COPD, CVA, HLD, HTN, and NJ presents to the ED for CC of left-hip pain. EMS reports, patient is coming from home where she c/o left-hip pain following a mechanical fall x1 week ago. Per EMS, patient was seen at [facility] following trauma; told her left hip is fracture however, it would not require surgery. Upon arrival to the ED, patient c/o 10/10 pain to her left hip. Patient denies any new trauma, injury, or fall. No other symptoms or modifying factors are present at this time. Chief Complaint: Lower Extremity Time Seen by MD: 06:40 Primary Care Provider: HORTENCIA Reviewed notes: Nurses Notes, Medications, Allergies Allergies: Coded Allergies: Ceftriaxone (Verified Allergy, Intermediate, generalized rash, 11/08/22) CHANNEL DIRECTORCARLENE MEJIA Hydrocodone (Verified Allergy, Unknown, rash, 05/18/23) tylenol is okay per patient Home Meds Active Scripts Levofloxacin Hemihydrate (LEVOFLOXACIN) 750 Mg Tab, 750 MG PO DAILY for 5 Days, #5 TAB Prov:PHILL LEAL RESDIENT 01/17/25 Levofloxacin Hemihydrate (LEVAQUIN 500 MG) 500 Mg Tab, 1 TAB PO DAILY, #7 TAB Prov:LUIS REICH MD 12/23/24 Oxycodone W/ Acetaminophen (Percocet 5/325MG) 1 Tab Tb, 1 TAB PO QID, #30 TAB Prov:JANE VEGA MD 09/29/24 Phenazopyridine HCl (Eq Urinary Pain Relief Ma) 99.5 Mg Tab, 99.5 MG PO TID for 10 Days, #30 TAB Prov:PHILL LEAL RESDIENT 09/23/24 Metoprolol Succinate (Metoprolol Succinate Er) 25 Mg Tab, 1 TAB PO DAILY for 30 Days, #30 TAB 5 Refills Prov:AXEL CARABALLO RESIDENT 09/06/24 Spironolactone (Aldactone) 25 Mg Tab, 25 MG PO DAILY for 30 Days, #30 TAB Prov:BHARAT MICHELLE RESIDENT 07/22/24 Oxybutynin Chloride (Oxybutynin Chloride) 5 Mg Tab, 5 MG PO Q8HR for 30 Days, #90 TAB Prov:BHARAT MICHELLE RESIDENT 07/22/24 Atorvastatin Calcium (ATORVASTATIN CALCIUM) 20 Mg Tab, 40 MG PO HS for 30 Days, #60 TAB Prov:BHARAT MICHELLE RESIDENT 07/22/24 Acetaminophen (Acetaminophen) 325 Mg Tab, 650 MG PO TID for 10 Days, #60 TAB Prov:BHARAT MICHELLE RESIDENT 07/22/24 Duloxetine Hydrochloride (Duloxetine Hydrochloride) 30 Mg Cap, 30 MG PO DAILY for 30 Days, #30 CAP Prov:WINSOME GOMEZ MD 04/29/24 Clopidogrel Bisulfate (CLOPIDOGREL) 75 Mg Tab, 75 MG PO DAILY for 30 Days, #30 TAB 5 Refills Prov:YENNY FRAIRE MD 11/26/23 Ranolazine (Ranolazine ER) 500 Mg Tab, 500 MG PO BID for 30 Days, #60 TAB 2 Refills Prov:MAGAN RUSS RESIDENT 09/16/23 Reported Medications Polyethylene Glycol 3350 (Miralax) 17 Gm Pow, 17 GM PO DAILY PRN for FOR CONSTIPATION for 30 Days, #30 01/28/24 Ipratropium-Albuterol (Ipratropium [place]/Albut) 1 Yuli Yuli, 1 VIAL NEB Q6HPRN PRN for SHORTNESS OF BREATH for 13 Days, #180 09/05/23 Fluticasone-Salmeterol (Fluticasone Propionate/SA 250-50 Mcg/Dose) 1 Aer Aer, 1 PUFF INH BID for 30 Days, #60 09/05/23 Albuterol Sulfate (Albuterol Sulfate Hfa) 108 Mcg/Act Aer, 2 PUFF INH Q4HPRN PRN for dyspnea for 17 Days, #18 09/05/23 Cholecalciferol (VITAMIN D3) 2,000 Unit Tab, 1 TAB PO BID for 30 Days, #60 08/28/23 Multiple Vitamin (Tab-A-Radha) Tab, 1 TAB PO DAILY for 30 Days, #30 08/28/23 Aspirin (Aspir-Low) 81 Mg Tab, 1 TAB PO DAILY for 30 Days, #30 08/28/23 Ascorbic Acid (VITAMIN C TABLET) 500 Mg Tb, 1 TAB PO BID for 30 Days, #60 05/18/23 Pantoprazole Sodium Sesquihydr (Pantoprazole Sodium) 40 Mg Tab, 1 TAB PO DAILY 05/18/23 Information Source: Patient Mode of Arrival: EMS Severity: Moderate Timing: Weeks Duration: Since onset Prehospital treatment: None Location: (L) Hip Location of laceration: None Mechanism: Fall Associated signs and symtoms: None Past Medical History PAST MEDICAL HISTORY: Anemia, Anxiety, Asthma, CAD, CHF, CKF, COPD, CVA, Depression, GERD, Gout, High Lipids, HTN, Kidney Stones, NJ, UTI'S Surgical History: Appendectomy, CABG, Hysterectomy, Pacemaker, PTCA, 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 BLOCKER HEATED METAL FORMS History: Ovarian Cysts Family History Family History: Reviewed,noncontributory to illness, Unknown Social History Smoker: Non-Smoker Alcohol: Denies ETOH Use Drugs: Denies Drug Use Lives In: Assisted Care Constitutional: denies: chills, diaphoresis, fatigue, fever, malaise, sweats, weakness, others EENTM: denies: blurred vision, double vision, ear bleeding, ear discharge, ear drainage, ear pain, ear ringing, eye pain, eye redness, hearing loss, mouth pain, mouth swelling, nasal discharge, nose bleeding, nose congestion, nose pain, photophobia, tearing, throat pain, throat swelling, voice changes, others Respiratory: denies: cough, hemoptysis, orthopnea, SOB at rest, shortness of breath, SOB with excertion, stridor, wheezing, others Cardiovascular: denies: chest pain, dizzy spells, diaphoresis, Dyspnea on exertion, edema, irregular heart beat, left arm pain, lightheadedness, palpitations, PND, syncope, others Gastrointestinal: denies: abdomen distended, abdominal pain, blood streaked bowels, constipated, diarrhea, dysphagia, difficulty swallowing, hematemesis, melena, nausea, poor appetite, poor fluid intake, rectal bleeding, rectal pain, vomiting, others Genitourinary: denies: abnormal vagina bleeding, burning, dyspareunia, dysuria, flank pain, frequency, hematuria, incontinence, pain, , vagina discharge, urgency, others Neurological: denies: dizziness, fainting, headache, left sided numbness, left sided weakness, numbness, paresthesia, pre-existing deficit, right sided numbness, right sided weakness, seizure, speech problems, tingling, tremors, weakness, others Musculoskeletal: reports: others (left hip pain); denies: back pain, gout, joint pain, joint swelling, muscle pain, muscle stiffness, neck pain Integumetry: denies: bruises, change in color, change in hair/nails, dryness, laceration, lesions, lumps, rash, wounds, others Allergic/Immunocompromised: denies: Difficulty Healing, Frequent Infections, Hives, Itching, others Hematologic/Lymphatic: denies: anemia, blood clots, easy bleeding, easy bruising, swollen glands, others Endocrine: denies: excessive hunger, excessive sweating, excessive thirst, excessive urination, flushing, intolerance to cold, intolerance to heat, unexplained weight gain, unexplained weight loss, others Psychiatric: denies: anxiety, bipolar disorder, depression, hopeless, panic disorder, schizophrenia, sleepless, suicidal, others All Other Systems: Reviewed and Negative Physical Exam General Appearance: No Apparent Distress, Normal HEENT: Normal ENT Inspection, Pharynx Normal Neck: Full Range of Motion, Non-Tender, Normal, Normal Inspection Respiratory: Chest Non-Tender, Lungs Clear, No Accessory Muscle Use, No Respiratory Distress, Normal Breath Sounds Cardiovascular: No Edema, No Murmur, No Gallop, Normal Peripheral Pulses, Regular Rate/Rhythm Breast Exam: Deferred Gastrointestinal: No Organomegaly, Non Tender, No Pulsatile Mass, Normal Bowel Sounds, Soft Genitalia: Deferred Pelvic: Deferred Rectal: Deferred Extremities: No calf tenderness, Normal capillary refill, Normal inspection, Normal range of motion, Non-tender, No pedal edema Musculoskeletal : Apperance: Normal Neurologic: Alert, flat bed operator II-XII nml as Tested, No Motor Deficits, Normal Affect, Normal Mood, No Sensory Deficits Cerebellar Function: Normal Reflexes: Normal Skin: Dry, Normal Color, Warm Lymphatic: No Adenopathy Was a procedure done? Was a procedure done?: No Differential Diagnosis Multiple Trauma: Fractures, Contusion, Hematoma X-Ray, Labs, Meds, VS Vital Signs Date Time Temp Pulse Resp B/P (MAP) Pulse Ox O2 Delivery O2 Flow Rate FiO2 02/04/25 07:30 70 17 99 Room Air* 0 21 02/04/25 07:30 98.2 70 17 111/63 (79) 99 98.2 02/04/25 06:10 99.2 60 16 136/81 93 99.2 Lab Test 02/04/25 10:22 Range/Units White Blood Count Pending Red Blood Count Pending Hemoglobin Pending Hematocrit Pending Mean Corpuscular Volume Pending Mean Corpuscular Hemoglobin Pending Mean Corpuscular Hemoglobin Concent Pending Red Cell Distribution Width Pending Platelet Count Pending Mean Platelet Volume Pending Neutrophils (%) (Auto) Pending Lymphocytes (%) (Auto) Pending Monocytes (%) (Auto) Pending Basophils (%) (Auto) Pending Neutrophils # (Auto) Pending Lymphocytes # (Auto) Pending Monocytes # (Auto) Pending Sodium Level Pending Potassium Level Pending Chloride Level Pending Carbon Dioxide Level Pending Anion Gap Pending Blood Urea Nitrogen Pending Creatinine Pending Glomerular Filtration Rate Calc Pending BUN/Creatinine Ratio Pending Serum Glucose Pending Calcium Level Pending Current Medications Medications (Trade) Dose Ordered Sig/Asha Route Start Time Stop Time Status Last Admin Oxycodone/ Acetaminophen (Percocet 5/ 325MG Tablet) 1 tab ONCE ONCE PO 02/04/25 08:00 02/04/25 08:43 DC 02/04/25 09:31 [place] [id number] Ph: [phone] DIAGNOSTIC IMAGING Diagnostic Imaging Report : [id number] Signed PATIENT: MONICA JAMES ACCT: [id number] UNIT: [id number] : 1945 LOC: ER ROOM / BED: / AGE / SEX: 79 / F ADM STATUS: REG ER SERVICE [id number] ORDERING PHYSICIAN: BRANDO SANCHEZ MD PROCEDURE(s): LHIP - L HIP COMPLETE XRAY REASON: fall ORDER NUMBER(s): [id number], ACCESSION NUMBER(s): [id number] CLINICAL INFORMATION: Fall injury. TECHNIQUE: 3 views of the pelvis and left hip were obtained. COMPARISON: XY R HIP COMPLETE XRAY on DOS: 12/22/24 FINDINGS: There are irregular lucencies in the greater trochanter. Possible nondisplaced fracture at the greater trochanter. No other evidence of acute fracture [id number] joint space narrowing in both hips. There are surgical clips in the right inguinal region and in the left hemipelvis. Likely dystrophic calcifications are seen projecting superior to the iliac crests. IMPRESSION: Irregular lucencies at the greater trochanter, suspected nondisplaced fracture. Can not exclude extension to the intertrochanteric region. CT could be considered to further characterize if clinically indicated. ATED BY: GARCIA MURDOCK DO DICTATED DATE/TIME: 02/04/25801 SIGNED BY: GARCIA MURDOCK DO SIGNED DATE/TIME: 02/04/25801 CC: Time of 1ST Reevaluation: 07:10 Reevaluation 1ST: Unchanged Patient Education/Counseling: Diagnosis, Treatment Family Education/Counseling: No Family Present Departure 1 Departure Time of Disposition: 10:40 (Patient with a worsening weakness and inability to ambulate. X-ray with concern for possible fracture. We will admit patient for pain control and consult orthopedics for further management.) Impression: Primary Impression: Left hip pain Additional Impressions: Fall Qualified Codes: W19.XXXA - Unspecified fall, initial encounter Inability to walk Intractable pain Disposition: ADMITTED INPATIENT Admit to: Med Surg Condition: Serious Critical Care Note Critical Care Time?: No Stability Stability form required: No Heart Score Heart Score: Heart Score Response (Comments) Value History N/A 0 EKG N/A 0 Age N/A 0 Risk Factors N/A 0 Troponin N/A 0 Total 0 I personally scribed for BRANDO SANCHEZ MD ([email or web address]) on 02/04/25 at 06:46. Electronically submitted by Laurita Nicole ([email or web address]). I personally scribed for BRANDO SANCHEZ MD ([email or web address]) on 02/04/25 at 08:02. Electronically submitted by Laurita Nicole ([email or web address]). I personally scribed for BRANDO SANCHEZ MD ([email or web address]) on 02/04/25 at 08:30. Electronically submitted by Laurita Nicole [email or web address]). BRANDO SANCHEZ MD Feb 04, 2025 06:46
[2025-02-04 07:30] VITALS: PULSE 70; RESP 17; O2SAT 99
--- NOTE | 2025-02-04 08:04 | DVH ---
CLINICAL INFORMATION: Fall injury. TECHNIQUE: 3 views of the pelvis and left hip were obtained. COMPARISON: XY R HIP COMPLETE XRAY on DOS: 12/22/24 FINDINGS: There are irregular lucencies in the greater trochanter. Possible nondisplaced fracture at the greater trochanter. No other evidence of acute fracture [id number] joint space narrowing i n both hips. There are surgical clips in the right inguinal region and in the left hemipelvis. Likely dystrophic calcifications are seen projecting superior to the iliac crests. IMPRESSION: Irregular lucencies at the greater trochanter, suspected nondisplaced fracture. Can not exclude exten rocky to the intertrochanteric region. CT could be considered to further characterize if clinically in dicated.
[2025-02-04] MEDS: OXYCODONE W/ ACETAMINOPHEN 5/325MG TABLET PO ONE (09:31)
[2025-02-04 10:41] LABS: Hematocrit 38.1 % (36.0-46.0); Hemoglobin 12.8 g/dL (12.2-16.2); Mean Corpuscular Hemoglobin 29.3 pg (28.0-32.0); Mean Corpuscular Volume 87.2 fL (80.0-100.0); Nucleated Red Blood Cells % 0.1 %
[2025-02-04 10:50] LABS: Potassium 4.3 mmol/L (3.5-5.1); Sodium 144 mmol/L (136-145)
[2025-02-04 10:51] LABS: Anion Gap 7 (5-15); Calcium 9.6 mg/dL (8.7-10.4); Carbon Dioxide 29 mmol/L (20-31)
[2025-02-04 10:54] LABS: Chloride 108 mmol/L (98-107)
[2025-02-04 10:56] LABS: BUN/Creatinine Ratio 16.5 (10.0-20.0); Blood Urea Nitrogen 18 mg/dL (9-23); Glucose 87 mg/dL (74-106)
[2025-02-04 13:20] VITALS: PULSE 70; RESP 12; O2SAT 93
--- NOTE | 2025-02-04 13:21 | DVHHP2 ---
History of Present Illness Reason for Visit: Left hip pain History of Present Illness 79-year-old female past medical history anemia anxiety asthma CAD COPD CVA hyperlipidemia hypertension RI UTI surgical history appendectomy CABG hysterectomy pacemaker PTCA tonsillectomy chief complaint patient states that she fell couple of days ago she was seen at outside hospital [facility] saw her and stated there was no surgical intervention so she comes in because she has a intractable left hip pain. Patient denies any recent fall since the diagnosis of with a fracture of the hip. She states she does walk with a walker but severe pain with ambulation. Patient denies any chest pain no shortness a breath no calf pain or leg swelling. When evaluating patient's labs and imaging from ED Zofran morphine [place] was given CBC was unremarkable CMP unremarkable creatinine is 1.09 chest x-ray of the left hip showed nondisplaced fracture. We will admit order CT scan of the hip this see the severity of the fracture if severe and abnormal can consult ortho. We will admit for pain management Past Medical History See HPI above Past Surgical History See HPI above Family History Reviewed, non-contributory to the management of this case. Past Social History The patient lives at home, denies smoking, alcohol or illicit drugs abuse. Review of Systems Constitutional: No: Fever, Chills, Sweats, Weakness, Malaise, Other Eyes: No: Pain, Vision change, Conjunctivae inflammation, Eyelid inflammation, Other, Redness ENT: No: Ear pain, Ear discharge, Nose pain, Nose discharge, Nose congestion, Mouth pain, Mouth swelling, Throat pain, Throat swelling, Other Respiratory: No: Cough, Dry, Shortness of breath, SOB with excertion, Wheezing, Hemoptysis, Pleuritic Pain, Sputum, Wheezing, Other Cardiovascular: No: Chest Pain, Palpitations, Orthopnea, Paroxysmal Noc. Dyspnea, Edema, Lt Headedness, Other Gastrointestinal: No: Nausea, Vomiting, Abdominal Pain, Diarrhea, Constipation, Melena, Hematochezia, Other Genitourinary: No Dysuria, No Frequency, No Incontinence, No Hematuria, No Retention, No Other Musculoskeletal: other (Left hip pain); No: neck pain, shoulder pain, arm pain, back pain, hand pain, leg pain, foot pain Skin: No: Rash, Lesions, Jaundice, Bruising, Other Neurological: No: Weakness, Numbness, Incoordination, Change in speech, Confusion, Seizures, Other Allergies: Coded Allergies: Ceftriaxone (Verified Allergy, Intermediate, generalized rash, 11/08/22) DISMANTLER OMEGA MEJIA Hydrocodone (Verified Allergy, Unknown, rash, 05/18/23) tylenol is okay per patient Exam Vital Signs Vital Signs Date Time Temp Pulse Resp B/P (MAP) Pulse Ox O2 Delivery O2 Flow Rate FiO2 02/04/25 07:30 70 17 99 Room Air* 0 21 02/04/25 07:30 98.2 111/63 (79) 98.2 General Appearance: Alert, Oriented X3, Cooperative, No acute distress HEENT: Atraumatic, PERRLA, EOMI, Mucous membr. moist/pink Respiratory: Clear to auscultation, Normal air movement Cardiovascular: Regular rate, Normal S1, Normal S2, No murmurs Abdominal: Normal bowel sounds, Soft, No tenderness, No hepatospenomegaly, No masses Extremities: No clubbing, No cyanosis, No edema, Normal pulses, No tenderness/swelling Skin: No rashes, No breakdown, No significant lesion Neuro: Normal speech, Strength at 5/5 X4 ext, Normal tone, Sensation intact, Cranial nerves 3-12 NL Psych/Mental Status: Mental status NL, Mood NL Labs/Xrays X-ray of the right hip shows nondisplaced fracture I reviewed labs, imaging CT scan abdomen pelvis, EKG and all diagnostic studies on this patient from ED records and the medical chart Labs Test 02/04/25 10:22 Range/Units White Blood Count 7.7 4.4-10.8 10^3/uL Red Blood Count 4.37 4.0-5.20 10^6/uL Hemoglobin 12.8 12.2-16.2 g/dL Hematocrit 38.1 36.0-46.0 % Mean Corpuscular Volume 87.2 80.0-100.0 fL Mean Corpuscular Hemoglobin 29.3 28.0-32.0 pg Mean Corpuscular Hemoglobin Concent 33.6 32.0-36.0 g/dL Red Cell Distribution Width 17.1 H 11.8-14.3 % Platelet Count 390 140-450 10^3/uL Mean Platelet Volume 7.7 6.9-10.8 fL Neutrophils (%) (Auto) 52.9 37.0-80.0 % Lymphocytes (%) (Auto) 28.6 10.0-50.0 % Monocytes (%) (Auto) 14.2 H 0.0-12.0 % Eosinophils (%) (Auto) 3.3 0.0-7.0 % Basophils (%) (Auto) 1.0 0.0-2.0 % Neutrophils # (Auto) 4.1 1.6-8.6 10 ^3/uL Lymphocytes # (Auto) 2.2 0.4-5.4 10 ^3/uL Monocytes # (Auto) 1.1 0-1.3 10 ^3/uL Eosinophils # (Auto) 0.3 0-0.8 10 ^3/uL Basophils # (Auto) 0.1 0-0.2 10 ^3/uL Nucleated Red Blood Cells 0.1 % Sodium Level 144 136-145 mmol/L Potassium Level 4.3 3.5-5.1 mmol/L Chloride Level 108 H 98-107 mmol/L Carbon Dioxide Level 29 20-31 mmol/L Anion Gap 7 5-15 Blood Urea Nitrogen 18 9-23 mg/dL Creatinine 1.09 H 0.550-1.02 mg/dL Glomerular Filtration Rate Calc 51 >90 mL/min BUN/Creatinine Ratio 16.5 10.0-20.0 Serum Glucose 87 74-106 mg/dL Calcium Level 9.6 8.7-10.4 mg/dL SEPSIS Sepsis Screen Date sepsis recognized/suspect: Feb 04, 2025 Time Sepsis recognized/suspect: 0610 Recent Procedure: No On Antibiotic Therapy: No Respiratory Rate >20: No Heart Rate >90: No Temp<36 C (96.8 F) or >38.3 C: No SBP <90 or MAP <65 mmHG: No New Acute Mental Status Change: No Is the patient on CPAP, BIPAP,: No Physician Orders L Hip Complete Xray (02/04/25 06:40) Covid19 Antigen Merlene (02/04/25 ) * Orthopedic Consult (02/04/25 10:02) Insert Midline (02/04/25 10:41) Vital Signs Date Time Temp Pulse Resp B/P (MAP) Pulse Ox O2 Delivery O2 Flow Rate FiO2 02/04/25 07:30 70 17 99 Room Air* 0 21 02/04/25 07:30 98.2 70 17 111/63 (79) 99 98.2 02/04/25 06:10 99.2 60 16 136/81 93 99.2 Laboratory Tests Test 02/04/25 10:22 White Blood Count 7.7 10^3/uL (4.4-10.8) Medications Medications Dose Ordered Sig/Asha Route Start Time Stop Time Status Last Admin Dose Admin Oxycodone/ Acetaminophen 1 tab ONCE ONCE PO 02/04/25 08:00 02/04/25 08:43 DC 02/04/25 09:31 1 TAB Assessment/Plan Assessment/Plan acute left hip fracture/pain found on xray ordered ct scan left hip depending results consider ortho ordered morphine prn pain ordered zofran prn PT consult fu results fall precautions ortho consulted fu results chronic problems anemia anxiety asthma cad copd cva hld htn uti mi pacemaker ptca cabg fen/ppx diet hl scd heparin protonix plan admit to medicine PT consult Plan discussed with: Patient Date of Service: Feb 04, 2025 Billing Provider: ROSE MARY BEY DNP Common Visit Codes: [id number] INP/OBS CARE (HIGH) ROSE MARY BEY DNP Feb 04, 2025 13:21
[2025-02-04] MEDS ORDERED: NITROGLYCERIN 0.4 MG SL TAB SL PRN (13:30)
[2025-02-04] MEDS ORDERED: DOCUSATE SOD 100 MG CAP PO PRN (13:30)
--- NOTE | 2025-02-04 14:21 | DVH ---
EXAM: CT CT L HIP WITH OUT CONTRAST INDICATION: eval for left hip fx TECHNIQUE: Axial images of left hip without contrast have been obtained along with coronal and sagitt al reformatted images. All CT scans at this facility use dose modulation, iterative reconstruction, a nd/or weight based dosing when appropriate to reduce radiation dose to as low as reasonably achievabl e. COMPARISON: XY L HIP COMPLETE XRAY on DOS: 02/04/25 FINDINGS: BONES: Nondisplaced fracture of the left greater trochanter. Fracture extension minimally into the le ft intertrochanteric region. No fracture involvement of the lesser trochanter no extension to the tra nscervical region. MUSCLES: No abnormal attenuation. JOINT SPACES: No joint effusion. TENDONS/LIGAMENTS: Intact. OTHER: Postsurgical changes in the region of the sigmoid colon fat containing left inguinal hernia IMPRESSION: 1. Nondisplaced fracture of the left greater trochanter. Fracture extension minimally into the left i ntertrochanteric region. No fracture involvement of the lesser trochanter no extension to the transce rvical region.
[2025-02-04] MEDS: ONDANSETRON HCL 4 MG/2 ML VIAL IV ONE (15:43)
[2025-02-04] MEDS: MORPHINE SULFATE 4 MG/ML SYR/VIAL IV ONE (15:54)
[2025-02-04] MEDS: ONDANSETRON HCL 4 MG/2 ML VIAL IV PRN (18:14)
[2025-02-04] MEDS: MORPHINE SULFATE INJ 2 MG/ml SYRG IV PRN (18:15)
[2025-02-04 19:35] VITALS: PULSE 70; RESP 13; O2SAT 94
[2025-02-04 21:28] LABS: Urine Amorphous Crystal MOD /hpf (None Seen); Urine Protein, UAD 2+ (Negative)
[2025-02-04 21:56] LABS: COVID19 ANTIGEN SOFIA FIA NEGATIVE (NEGATIVE)
[2025-02-04 22:19] VITALS: BP 133/66; PULSE 80; RESP 17; TEMP 98; O2SAT 94
[2025-02-05] VITALS (15 sets, daily range): BP systolic 107–136; BP diastolic 52–70; PULSE 62–81; RESP 15–18; TEMP 97.7–98.1; O2SAT 95–100
[2025-02-05 06:31] LABS: Hematocrit 37.8 % (36.0-46.0); Hemoglobin 12.9 g/dL (12.2-16.2); Mean Corpuscular Hemoglobin 29.7 pg (28.0-32.0); Mean Corpuscular Volume 86.8 fL (80.0-100.0); Nucleated Red Blood Cells % 0.0 %
[2025-02-05] MEDS: IPRATROPIUM BROM 0.5 MG/2.5ML INH SOL NEB SCH (06:48)
[2025-02-05] MEDS: ALBUTEROL SULF 2.5 MG/0.5ML(0.5%) NEB SOLN NEB SCH (06:49)
[2025-02-05 06:52] LABS: Albumin 3.9 g/dL (3.2-4.8); Alkaline Phosphatase 80 U/L (46-116); Anion Gap 9 (5-15); BUN/Creatinine Ratio 12.9 (10.0-20.0); Bilirubin, Total 0.4 mg/dL (0.2-1.0); Blood Urea Nitrogen 13 mg/dL (9-23); Calcium 9.0 mg/dL (8.7-10.4); Carbon Dioxide 26 mmol/L (20-31); Chloride 107 mmol/L (98-107); Potassium 4.0 mmol/L (3.5-5.1); Sodium 142 mmol/L (136-145); Total Protein 6.1 g/dL (5.7-8.2)
[2025-02-05 06:58] LABS: Alanine Aminotransferase 9 U/L (7-40); Glucose 119 mg/dL (74-106)
[2025-02-05] MEDS: ENOXAPARIN SOD 40 MG/0.4 ML SYRINGE SC SCH (10:36)
[2025-02-05 10:54] LABS: INR 1.07 (0.9-1.15); Prothrombin Time 11.3 sec (9.3-11.8)
--- NOTE | 2025-02-05 11:28 | DVHPN2 ---
Subjective Status post a fall 2 days ago Changes from previous H/P or p: Changes Eyes: No Pain, No Vision change, No Conjunctivae inflammation, No Eyelid inflammation, No Other, No Redness ENT: No Ear pain, No Ear discharge, No Nose pain, No Nose discharge, No Nose congestion, No Mouth pain, No Mouth swelling, No Throat pain, No Throat swelling, No Other Cardiovascular: No Chest Pain, No Palpitations, No Orthopnea, No Paroxysmal Noc. Dyspnea, No Edema, No Lt Headedness, No Other Respiratory: No Cough, No Dry, No Shortness of breath, No SOB with excertion, No Wheezing, No Hemoptysis, No Pleuritic Pain, No Sputum, No Other Gastrointestinal: No Nausea, No Vomiting, No Abdominal Pain, No Diarrhea, No Constipation, No Melena, No Hematochezia, No Other Genitourinary: No Dysuria, No Frequency, No Incontinence, No Hematuria, No Retention, No Other Musculoskeletal: other (Left hip pain); No neck pain, No shoulder pain, No arm pain, No back pain, No hand pain, No leg pain, No foot pain Skin: No Rash, No Lesions, No Jaundice, No Bruising, No Other Objective Vitals Vital Signs Date Time Temp Pulse Resp B/P (MAP) Pulse Ox O2 Delivery O2 Flow Rate FiO2 02/05/25 11:17 68 18 116/58 02/05/25 10:57 98.0 98 2.0 98.0 02/05/25 07:45 Nasal Cannula* 32 General Appearance: Alert, Oriented X3, Cooperative, No acute distress Lungs: Clear to auscultation, Normal air movement Cardiovascular: Regular rate, Normal S1, Normal S2 Abdomen: Normal bowel sounds, Soft, No tenderness Extremities: No edema Medications Current Medications Medications Dose Ordered Sig/Asha Route Start Time Stop Time Status Last Admin Dose Admin Ondansetron HCl 4 mg Q4HP PRN IV 02/04/25 13:30 02/05/25 11:17 4 MG Docusate Sodium 100 mg BIDPRN PRN PO 02/04/25 13:30 Enoxaparin Sodium 40 mg DAILY SC 02/05/25 10:00 02/05/25 10:36 40 MG Morphine Sulfate 2 mg Q4HPRN PRN IV 02/04/25 13:30 02/05/25 11:17 2 MG Nitroglycerin 0.4 mg Q5MINP PRN SL 02/04/25 13:30 Albuterol 2.5 mg Q6HR NEB 02/05/25 06:00 02/05/25 06:49 2.5 MG Ipratropium [place] 0.5 mg Q6HR NEB 02/05/25 06:00 02/05/25 06:48 0.5 MG Laboratory Results Laboratory Tests 02/05/25 06:15 Chemistry Test 02/05/25 06:15 Albumin 3.9 g/dL (3.2-4.8) Calcium Level 9.0 mg/dL (8.7-10.4) Total Protein 6.1 g/dL (5.7-8.2) Coagulation Test 02/05/25 10:25 Prothrombin Time 11.3 sec (9.3-11.8) Prothrombin Time INR 1.07 (0.9-1.15) LFT Test 02/05/25 06:15 Alanine Aminotransferase (ALT) 9 U/L (7-40) Alkaline Phosphatase 80 U/L (46-116) Aspartate Amino Transferase (AST) 21 U/L (13-40) Total Bilirubin 0.4 mg/dL (0.2-1.0) Urinalysis Test 02/04/25 10:53 Urine Color Yellow (Yellow) Urine Clarity Ex.turbid (Clear) Urine pH 8.5 (5.0-9.0) Urine Specific [place] 1.021 (1.001-1.035) Urine Protein 2+ (Negative) H Urine Ketones Negative (Negative) Urine Blood Negative /uL (Negative) Urine Nitrite 2+ (Negative) H Urine Bilirubin Negative (Negative) Urine Urobilinogen Normal mg/dL (Negative) Urine Leukocyte Esterase 3+ /uL (Negative) Urine RBC 1 /hpf (0 - 4) Urine Microscopic WBC 54 /HPF (0-5) H Urine Squamous Epithelial Cells Few /hpf (<5) Urine Transitional Epithelial Cells Few /hpf (<2) Urine Amorphous Crystals Mod /hpf (None Seen) Urine Bacteria None seen /hpf (None Seen) Urine Glucose Normal mg/dL (Normal) Assessment/Plan Assessment/Plan Left hip fracture Chronic anemia Anxiety Asthma Coronary artery disease COPD History of CVA Hypertension Mixed hyperlipidemia Status post pacemaker Status post CABG Plan Orthopedic consult is pending Cardiology consult Lovenox subcutaneously Med neb treatments as needed Pain management as needed Full code Advance directives discussed for 20 minute Plan discussed with: Patient Date of Service: Feb 05, 2025 Billing Provider: YENNY FRAIRE MD Common Visit Codes: [id number] INP/OBS CARE(HIGH) Secondary Visit Codes: [id number] CARE PLAN 30 MINUTES YENNY FRAIRE MD Feb 05, 2025 11:28
[2025-02-05] MEDS ORDERED: ACETAMINOPHEN 325 MG TAB PO PRN (11:30)
--- NOTE | 2025-02-05 12:01 | DVHINCON2 ---
Date of service: Feb 05, 2025 Reason for Consultation Left hip fracture History of Present Illness 79 yo F sp mechanical fall a few days ago she said. She has been unable to bear weight secondary to the fall. Pain in hip/groin. No current cp/sob/abd pain Past Medical History anemia anxiety asthma CAD COPD CVA hyperlipidemia hypertension [place] appendectomy CABG hysterectomy pacemaker PTCA tonsillectomy Family History: Arthritis Cardiovascular disease G8 MOTHER, Onset:Unknown Cerebrovascular accident (CVA) G8 FATHER Coronary artery disease G8 MOTHER, Onset:Unknown FH: diabetes mellitus G8 MOTHER, Onset:Unknown FH: heart disease G8 MOTHER, Onset:Unknown FH: hypertension G8 MOTHER, Onset:Unknown FH: lupus 19 CHILD FH: myocardial infarction G8 MOTHER, Onset:Unknown Family history: Cardiovascular disease G8 MOTHER, Onset:Unknown G8 FATHER, Onset:Unknown Glaucoma G8 MOTHER, Onset:Unknown Allergies: Coded Allergies: Ceftriaxone (Verified Allergy, Intermediate, generalized rash, 11/08/22) DERRICK BOAT LEVERMANCARLENE MEJIA Hydrocodone (Verified Allergy, Unknown, rash, 05/18/23) tylenol is okay per patient Home Meds Active Scripts Levofloxacin Hemihydrate (LEVOFLOXACIN) 750 Mg Tab, 750 MG PO DAILY for 5 Days, #5 TAB Prov:PHILL LEAL RESDIENT 01/17/25 Oxycodone W/ Acetaminophen (Percocet 5/325MG) 1 Tab Tb, 1 TAB PO QID, #30 TAB Prov:JANE VEGA MD 09/29/24 Phenazopyridine HCl (Eq Urinary Pain Relief Ma) 99.5 Mg Tab, 99.5 MG PO TID for 10 Days, #30 TAB Prov:PHILL LEAL RESDIENT 09/23/24 Metoprolol Succinate (Metoprolol Succinate Er) 25 Mg Tab, 1 TAB PO DAILY for 30 Days, #30 TAB 5 Refills Prov:AXEL CARABALLO RESIDENT 09/06/24 Spironolactone (Aldactone) 25 Mg Tab, 25 MG PO DAILY for 30 Days, #30 TAB Prov:BHARAT MICHELLE RESIDENT 07/22/24 Oxybutynin Chloride (Oxybutynin Chloride) 5 Mg Tab, 5 MG PO Q8HR for 30 Days, #90 TAB Prov:BHARAT MICHELLE RESIDENT 07/22/24 Atorvastatin Calcium (ATORVASTATIN CALCIUM) 20 Mg Tab, 40 MG PO HS for 30 Days, #60 TAB Prov:BHARAT MICHELLE RESIDENT 07/22/24 Duloxetine Hydrochloride (Duloxetine Hydrochloride) 30 Mg Cap, 30 MG PO DAILY for 30 Days, #30 CAP Prov:WINSOME GOMEZ MD 04/29/24 Clopidogrel Bisulfate (CLOPIDOGREL) 75 Mg Tab, 75 MG PO DAILY for 30 Days, #30 TAB 5 Refills Prov:YENNY FRAIRE MD 11/26/23 Ranolazine (Ranolazine ER) 500 Mg Tab, 500 MG PO BID for 30 Days, #60 TAB 2 Refills Prov:MAGAN RUSS RESIDENT 09/16/23 Reported Medications Polyethylene Glycol 3350 (Miralax) 17 Gm Pow, 17 GM PO DAILY PRN for FOR CONSTIPATION for 30 Days, #30 01/28/24 Ipratropium-Albuterol (Ipratropium [place]/Albut) 1 Yuli Yuli, 1 VIAL NEB Q6HPRN PRN for SHORTNESS OF BREATH for 13 Days, #180 09/05/23 Fluticasone-Salmeterol (Fluticasone Propionate/SA 250-50 Mcg/Dose) 1 Aer Aer, 1 PUFF INH BID for 30 Days, #60 09/05/23 Albuterol Sulfate (Albuterol Sulfate Hfa) 108 Mcg/Act Aer, 2 PUFF INH Q4HPRN PRN for dyspnea for 17 Days, #18 09/05/23 Cholecalciferol (VITAMIN D3) 2,000 Unit Tab, 1 TAB PO BID for 30 Days, #60 08/28/23 Multiple Vitamin (Tab-A-Radha) Tab, 1 TAB PO DAILY for 30 Days, #30 08/28/23 Aspirin (Aspir-Low) 81 Mg Tab, 1 TAB PO DAILY for 30 Days, #30 08/28/23 Ascorbic Acid (VITAMIN C TABLET) 500 Mg Tb, 1 TAB PO BID for 30 Days, #60 05/18/23 Pantoprazole Sodium Sesquihydr (Pantoprazole Sodium) 40 Mg Tab, 1 TAB PO DAILY 05/18/23 Current Medications Current Medications Medications (Trade) Dose Ordered Sig/Asha Route PRN Reason Start Time Stop Time Status Last Admin Ondansetron HCl (Zofran) 4 mg Q4HP PRN IV NAUSEA / VOMITING 02/04/25 13:30 02/05/25 11:17 Docusate Sodium (Colace Capsule) 100 mg BIDPRN PRN PO FOR CONSTIPATION 02/04/25 13:30 Enoxaparin Sodium (Lovenox) 40 mg DAILY SC 02/05/25 10:00 02/05/25 10:36 Morphine Sulfate 2 mg Q4HPRN PRN IV SEVERE PAIN (7-10 PAIN SCALE) 02/04/25 13:30 02/05/25 11:17 Nitroglycerin (Ntrostat Sublingual) 0.4 mg Q5MINP PRN SL FOR CHEST PAIN 02/04/25 13:30 Albuterol (Ventolin Medneb) 2.5 mg Q6HR NEB 02/05/25 06:00 02/05/25 06:49 Ipratropium [place] (Atrovent Medneb) 0.5 mg Q6HR NEB 02/05/25 06:00 02/05/25 06:48 Acetaminophen (Tylenol Tablet) 650 mg Q6HP PRN PO MILD PAIN OR PAGAN 02/05/25 11:30 UNV Review of Systems 10 point ROS is neg except per HPI Vital Signs Vital Signs Date Time Temp Pulse Resp B/P (MAP) Pulse Ox O2 Delivery O2 Flow Rate FiO2 02/05/25 11:17 68 18 116/58 02/05/25 10:57 98.0 98 2.0 98.0 02/05/25 07:45 Nasal Cannula* 32 Physical Exam NAD LLE: no rotational deformity noted +TA/GS/EHL/FHL pain with PROM at hip SILT L3-S1 foot wwp Labs/Diagnostic Data Labs Test 02/05/25 10:25 02/05/25 06:15 02/04/25 20:43 02/04/25 10:53 Range/Units Prothrombin Time 11.3 9.3-11.8 sec Prothrombin Time INR 1.07 0.9-1.15 White Blood Count 7.4 4.4-10.8 10^3/uL Red Blood Count 4.36 4.0-5.20 10^6/uL Hemoglobin 12.9 12.2-16.2 g/dL Hematocrit 37.8 36.0-46.0 % Mean Corpuscular Volume 86.8 80.0-100.0 fL Mean Corpuscular Hemoglobin 29.7 28.0-32.0 pg Mean Corpuscular Hemoglobin Concent 34.2 32.0-36.0 g/dL Red Cell Distribution Width 16.9 H 11.8-14.3 % Platelet Count 398 140-450 10^3/uL Mean Platelet Volume 7.7 6.9-10.8 fL Neutrophils (%) (Auto) 64.2 37.0-80.0 % Lymphocytes (%) (Auto) 21.5 10.0-50.0 % Monocytes (%) (Auto) 10.5 0.0-12.0 % Eosinophils (%) (Auto) 2.8 0.0-7.0 % Basophils (%) (Auto) 1.0 0.0-2.0 % Neutrophils # (Auto) 4.8 1.6-8.6 10 ^3/uL Lymphocytes # (Auto) 1.6 0.4-5.4 10 ^3/uL Monocytes # (Auto) 0.8 0-1.3 10 ^3/uL Eosinophils # (Auto) 0.2 0-0.8 10 ^3/uL Basophils # (Auto) 0.1 0-0.2 10 ^3/uL Nucleated Red Blood Cells 0.0 % Sodium Level 142 136-145 mmol/L Potassium Level 4.0 3.5-5.1 mmol/L Chloride Level 107 98-107 mmol/L Carbon Dioxide Level 26 20-31 mmol/L Anion Gap 9 5-15 Blood Urea Nitrogen 13 9-23 mg/dL Creatinine 1.01 0.550-1.02 mg/dL Glomerular Filtration Rate Calc 56 >90 mL/min BUN/Creatinine Ratio 12.9 10.0-20.0 Serum Glucose 119 H 74-106 mg/dL Calcium Level 9.0 8.7-10.4 mg/dL Total Bilirubin 0.4 0.2-1.0 mg/dL Aspartate Amino Transferase (AST) 21 13-40 U/L Alanine Aminotransferase (ALT) 9 7-40 U/L Alkaline Phosphatase 80 46-116 U/L Total Protein 6.1 5.7-8.2 g/dL Albumin 3.9 3.2-4.8 g/dL SARS-CoV-2 Antigen (Rapid) Negative NEGATIVE Urine Color Yellow Yellow Urine Clarity Ex.turbid Clear Urine pH 8.5 5.0-9.0 Urine Specific [place] 1.021 1.001-1.035 Urine Protein 2+ H Negative Urine Ketones Negative Negative Urine Blood Negative Negative /uL Urine Nitrite 2+ H Negative Urine Bilirubin Negative Negative Urine Urobilinogen Normal Negative mg/dL Urine Leukocyte Esterase 3+ Negative /uL Urine RBC 1 0 - 4 /hpf Urine Microscopic WBC 54 H 0-5 /HPF Urine Squamous Epithelial Cells Few <5 /hpf Urine Transitional Epithelial Cells Few <2 /hpf Urine Amorphous Crystals Mod None Seen /hpf Urine Bacteria None seen None Seen /hpf Urine Glucose Normal Normal mg/dL Plan/Recommendation 79 Yo F with left greater troch fracture with extension into intertroch 1. I had a long and thorough discussion with patient regarding her condition. Nonop and operative measures discussed in depth 2. Cardiology consult (patient of Dr. Tidwell) - cardiac clearance for possible hip surgery 3. echo pending 4. pain control 5. No weight on left leg for now 6. DVT ppx Plan discussed with: Patient JORGE DUMONT MD Feb 05, 2025 12:01
--- NOTE | 2025-02-05 14:11 | DVH ---
CHEST RADIOGRAPH Indication: cad Technique: Single frontal view of the chest was obtained Comparison: XY CHEST PORTABLE on DOS: 01/14/25, XY CHEST PORTABLE on DOS: 01/08/25, XY CHEST PORTABLE o n DOS: 01/07/25, XY CHEST PORTABLE on DOS: 01/06/25, XY CHEST PORTABLE on DOS: 01/03/25 FINDINGS: Lines and Tubes: Left pacemaker/AICD. Lungs: No focal consolidation. Pleura: No effusion. No pneumothorax. Cardiomediastinal contours: Cardiomegaly. Bones: No acute osseous abnormality. IMPRESSION: No acute cardiopulmonary disease.
[2025-02-06] VITALS (17 sets, daily range): BP systolic 104–134; BP diastolic 52–79; PULSE 76–87; RESP 16–18; TEMP 97.8–100.3; O2SAT 93–98
--- NOTE | 2025-02-06 10:44 | DVHPN2 ---
Subjective She was seen by Orthopedic surgery and was recommended for possible surgery however because of her comorbidities she needs a cardiology clearance first Changes from previous H/P or p: Changes Eyes: No Pain, No Vision change, No Conjunctivae inflammation, No Eyelid inflammation, No Other, No Redness ENT: No Ear pain, No Ear discharge, No Nose pain, No Nose discharge, No Nose congestion, No Mouth pain, No Mouth swelling, No Throat pain, No Throat swelling, No Other Cardiovascular: No Chest Pain, No Palpitations, No Orthopnea, No Paroxysmal Noc. Dyspnea, No Edema, No Lt Headedness, No Other Respiratory: No Cough, No Dry, No Shortness of breath, No SOB with excertion, No Wheezing, No Hemoptysis, No Pleuritic Pain, No Sputum, No Other Gastrointestinal: No Nausea, No Vomiting, No Abdominal Pain, No Diarrhea, No Constipation, No Melena, No Hematochezia, No Other Genitourinary: No Dysuria, No Frequency, No Incontinence, No Hematuria, No Retention, No Other Musculoskeletal: other (Left hip pain); No neck pain, No shoulder pain, No arm pain, No back pain, No hand pain, No leg pain, No foot pain Skin: No Rash, No Lesions, No Jaundice, No Bruising, No Other Objective Vitals Vital Signs Date Time Temp Pulse Resp B/P (MAP) Pulse Ox O2 Delivery O2 Flow Rate FiO2 02/06/25 09:26 77 17 123/52 02/06/25 09:00 98.9 98 98.9 02/06/25 06:24 Nasal Cannula* 2 28 Intake/Output Intake and Output 02/06/25 07:00 Intake Total 840 ml Output Total 450 ml Balance 390 ml Intake Oral 840 ml Output Urine Total 450 ml General Appearance: Alert, Oriented X3, Cooperative, No acute distress Lungs: Clear to auscultation, Normal air movement Cardiovascular: Regular rate, Normal S1, Normal S2 Abdomen: Normal bowel sounds, Soft, No tenderness Extremities: No edema Medications Current Medications Medications Dose Ordered Sig/Asha Route Start Time Stop Time Status Last Admin Dose Admin Ondansetron HCl 4 mg Q4HP PRN IV 02/04/25 13:30 02/06/25 09:26 4 MG Docusate Sodium 100 mg BIDPRN PRN PO 02/04/25 13:30 Enoxaparin Sodium 40 mg DAILY SC 02/05/25 10:00 02/05/25 10:36 40 MG Morphine Sulfate 2 mg Q4HPRN PRN IV 02/04/25 13:30 02/06/25 09:26 2 MG Nitroglycerin 0.4 mg Q5MINP PRN SL 02/04/25 13:30 Albuterol 2.5 mg Q6HR NEB 02/05/25 06:00 02/06/25 06:33 2.5 MG Ipratropium [place] 0.5 mg Q6HR NEB 02/05/25 06:00 02/06/25 06:33 0.5 MG Acetaminophen 650 mg Q6HP PRN PO 02/05/25 11:30 Laboratory Results Laboratory Tests 02/05/25 06:15 Urinalysis Test 02/04/25 10:53 Urine Color Yellow (Yellow) Urine Clarity Ex.turbid (Clear) Urine pH 8.5 (5.0-9.0) Urine Specific [place] 1.021 (1.001-1.035) Urine Protein 2+ (Negative) H Urine Ketones Negative (Negative) Urine Blood Negative /uL (Negative) Urine Nitrite 2+ (Negative) H Urine Bilirubin Negative (Negative) Urine Urobilinogen Normal mg/dL (Negative) Urine Leukocyte Esterase 3+ /uL (Negative) Urine RBC 1 /hpf (0 - 4) Urine Microscopic WBC 54 /HPF (0-5) H Urine Squamous Epithelial Cells Few /hpf (<5) Urine Transitional Epithelial Cells Few /hpf (<2) Urine Amorphous Crystals Mod /hpf (None Seen) Urine Bacteria None seen /hpf (None Seen) Urine Glucose Normal mg/dL (Normal) Assessment/Plan Assessment/Plan Left hip fracture Chronic anemia Anxiety Asthma Coronary artery disease COPD History of CVA Hypertension Mixed hyperlipidemia Status post pacemaker Status post CABG Plan Orthopedic consult is pending Cardiology consult Lovenox subcutaneously Med neb treatments as needed Pain management as needed Full code Advance directives discussed for 20 minute 02/06/2025: Consult cardiology Dr. Mercado Orthopedic evaluation is ongoing if she is cleared by Cardiology then she would be a candidate for surgery The patient is high-risk for surgery due to her coronary artery disease and COPD and underlying comorbidities Plan discussed with: Patient My Orders Orders - YENNY FRAIRE MD Procedure Category Date Status Time Acetaminophen Tablet PHA 02/05/25 In Process (Tylenol Tablet) 11:30 * Cardiology Consult CONS 9/13/25 Transmitted 09:01 Date of Service: Feb 06, 2025 Billing Provider: YENNY FRAIRE MD Common Visit Codes: [id number] INP/OBS CARE(HIGH) YENNY FRAIRE MD Feb 06, 2025 10:44
[2025-02-07] VITALS (14 sets, daily range): BP systolic 113–134; BP diastolic 57–71; PULSE 73–97; RESP 16–20; TEMP 97.9–99.3; O2SAT 95–100
--- NOTE | 2025-02-07 06:39 | DVHINCON2 ---
Date of service: Feb 07, 2025 Reason for Consultation Cardiac Risk Stratification History of Present Illness This is an 79-year old female known outside to our practice who initially pre sented with left-sided hip pain status post reported fall approximately 1 weeks found to have an acute left hip fracture pending tentative surgical intervention 02/08/2025 by orthopedic services. Cardiology was subsequently requested for cardiac pre-operative risk assessment. Patient is known to have coronary artery disease for which she is status post previous 3-V CABG with most recent PCI involving LAD 08/26/2024 on DAPT (Plavix/Aspirin). She is furthermore known to have baseline history ischemic cardiomyopathy with last known LVEF of 10% as per Echocardiogram findings 11/30/2024 which she is status post previous Biotronik biventricular AICD implantation. Recent device interrogation performed in November of 2024 during previous admission had revealed an overall appropriate functioning device. At present, initial 12-lead electrocardiogram had revealed an A-V paced rhythm at 75 bpm with no evidence for acute ischemic changes. Chest imaging was performed and had revealed no evidence for acute cardiopulmonary abnormalities. At present denies any active chest pains, shortness of breath, palpitations, dizziness, syncope, orthopnea, paroxysmal nocturnal dyspnea, or any further cardiac related symptoms. Cardiology services were subsequently involved for cardiac pre-operative risk assessment. Past medical history includes hypertension, hyperlipidemia, coronary artery disease, history of CABG (2010), systolic heart failure, ischemic cardiomyopathy, gout, kidney stone, s/p ESWL, frequent UTI, history of CVA, Diverticulosis, COPD, s/p COVID, depression, Anxiety, GERD, history of appendectomy/hysterectomy/tonsillectomy, and history of BiV ICD (Biotronik) implantation. She is chronically wheelchair-bound. She was previously in hospice for heart failure. She is allergic to codeine. She quit smoking years ago. She is DNR. She also has diagnosis of parkinsonism. Cardiac catheterization of August 26, 2024 (performed in [facility]) revealed triple-vessel big sandy coronary artery disease. LOCK TENDER CHIEF OPERATOR of obtuse marginal. LOCK TENDER CHIEF OPERATOR of RCA. Lad with 75% lesion and status post drug-eluting stent deployment. It is of note that there is patent SVG to obtuse marginal and also patent SVG to RCA. Cardiac catheterization of September 2020 revealed ejection fraction of 20%, LOCK TENDER CHIEF OPERATOR of SVG to diagonal, patent TAN, patent SVG to OM, patent SVG to PDA and LOCK TENDER CHIEF OPERATOR of RCA. Echocardiogram of November 30, 2024 revealed Dilated left ventricle, LVEF of around 10%. Pacing wire was seen in the right-sided chambers. There was mild mitral regurgitation. There was trace tricuspid regurgitation. As there was no good tricuspid regurgitation jet, right ventricular systolic pressure could not be estimated. Echocardiogram of September 04, 2024 reported: Dilated left ventricle. LVEF of 10%. Increased EDP. Pacing wire in right-sided chambers. Mild mitral regurgitation. As there was no good tricuspid regurgitation jet, right ventricular systolic pressure could not be estimated Echocardiogram of August 25, 2024 (performed in [facility]) for PE old ejection fraction of 20% Echocardiogram of reported: LV EF of 15-20%, biatrial enlargement, pacing wire in the right-sided chambers. Echocardiogram of November 22, 2023 revealed: Dilated left ventricle, LVEF of 10%, pacing wire and right-sided chambers, mild mitral regurgitation. Echocardiogram of August 28, 2023 revealed: Dilated left ventricle with significantly reduced systolic function. LVEF of 20%. Elevated LVEDP, dilated four chambers. Pacing wire was seen in right-sided chamber. [id number] MR. Echocardiogram of January 03, 2023 revealed ejection fraction of 20 to 25% and mild left ventricular enlargement Echocardiogram of March 25, 2023 (performed in the office) revealed four- chamber dilatation, LVEF of 20 to 25%, mild to moderate MR, mild TR, trace pulmonary valve insufficiency and right ventricular systolic pressure of 35 mmHg Echocardiogram of March 21, 2022 revealed ejection fraction of around 20%, mild MR/TR Echocardiogram of February 17, 2021 revealed dilated LV, LVEF around 25%, severe diffuse hypokinesis, increased LVEDP, dilated left and right atria, mild to moderate MR, mild TR. Echocardiogram of December 30, 2020 reported ejection fraction less than 20% and dilated left atrium. Echocardiogram of August 2020 revealed ejection fraction less than 25%, right atrial enlargement, left atrial enlargement and moderate MR. Past Medical History Reviewed Past Surgical History Reviewed Family History: Arthritis Cardiovascular disease G8 MOTHER, Onset:Unknown Cerebrovascular accident (CVA) G8 FATHER Coronary artery disease G8 MOTHER, Onset:Unknown FH: diabetes mellitus G8 MOTHER, Onset:Unknown FH: heart disease G8 MOTHER, Onset:Unknown FH: hypertension G8 MOTHER, Onset:Unknown FH: lupus 19 CHILD FH: myocardial infarction G8 MOTHER, Onset:Unknown Family history: Cardiovascular disease G8 MOTHER, Onset:Unknown G8 FATHER, Onset:Unknown Glaucoma G8 MOTHER, Onset:Unknown Allergies: Coded Allergies: Ceftriaxone (Verified Allergy, Intermediate, generalized rash, 11/08/22) [employer]PER[employer]OR [employer]LENE MEJIA Hydrocodone (Verified Allergy, Unknown, rash, 05/18/23) tylenol is okay per patient Home Meds Active Scripts Levofloxacin Hemihydrate (LEVOFLOXACIN) 750 Mg Tab, 750 MG PO DAILY for 5 Days, #5 TAB Prov:PHILL LEAL RESDIENT 01/17/25 Oxycodone W/ Acetaminophen (Percocet 5/325MG) 1 Tab Tb, 1 TAB PO QID, #30 TAB Prov:JANE VEGA MD 09/29/24 Phenazopyridine HCl (Eq Urinary Pain Relief Ma) 99.5 Mg Tab, 99.5 MG PO TID for 10 Days, #30 TAB Prov:PHILL LEAL RESDIENT 09/23/24 Metoprolol Succinate (Metoprolol Succinate Er) 25 Mg Tab, 1 TAB PO DAILY for 30 Days, #30 TAB 5 Refills Prov:AXEL CARABALLO RESIDENT 09/06/24 Spironolactone (Aldactone) 25 Mg Tab, 25 MG PO DAILY for 30 Days, #30 TAB Prov:BHARAT MICHELLE RESIDENT 07/22/24 Oxybutynin Chloride (Oxybutynin Chloride) 5 Mg Tab, 5 MG PO Q8HR for 30 Days, #90 TAB Prov:HBARAT MICHELLE RESIDENT 07/22/24 Atorvastatin Calcium (ATORVASTATIN CALCIUM) 20 Mg Tab, 40 MG PO HS for 30 Days, #60 TAB Prov:BHARAT MICHELLE RESIDENT 07/22/24 Duloxetine Hydrochloride (Duloxetine Hydrochloride) 30 Mg Cap, 30 MG PO DAILY for 30 Days, #30 CAP Prov:WINSOME GOMEZ MD 04/29/24 Clopidogrel Bisulfate (CLOPIDOGREL) 75 Mg Tab, 75 MG PO DAILY for 30 Days, #30 TAB 5 Refills Prov:YENNY FRAIRE MD 11/26/23 Ranolazine (Ranolazine ER) 500 Mg Tab, 500 MG PO BID for 30 Days, #60 TAB 2 Refills Prov:MAGAN RUSS RESIDENT 09/16/23 Reported Medications Polyethylene Glycol 3350 (Miralax) 17 Gm Pow, 17 GM PO DAILY PRN for FOR CONSTIPATION for 30 Days, #30 01/28/24 Ipratropium-Albuterol (Ipratropium Mcbrides/Albut) 1 Yuli Yuli, 1 VIAL NEB Q6HPRN PRN for SHORTNESS OF BREATH for 13 Days, #180 09/05/23 Fluticasone-Salmeterol (Fluticasone Propionate/SA 250-50 Mcg/Dose) 1 Aer Aer, 1 PUFF INH BID for 30 Days, #60 09/05/23 Albuterol Sulfate (Albuterol Sulfate Hfa) 108 Mcg/Act Aer, 2 PUFF INH Q4HPRN PRN for dyspnea for 17 Days, #18 09/05/23 Cholecalciferol (VITAMIN D3) 2,000 Unit Tab, 1 TAB PO BID for 30 Days, #60 08/28/23 Multiple Vitamin (Tab-A-Radha) Tab, 1 TAB PO DAILY for 30 Days, #30 08/28/23 Aspirin (Aspir-Low) 81 Mg Tab, 1 TAB PO DAILY for 30 Days, #30 24 Ascorbic Acid (VITAMIN C TABLET) 500 Mg Tb, 1 TAB PO BID for 30 Days, #60 05/18/23 Pantoprazole Sodium Sesquihydr (Pantoprazole Sodium) 40 Mg Tab, 1 TAB PO DAILY 05/18/23 Review of Systems A 14-point review of systems is negative unless otherwise noted above Vital Signs Vital Signs Date Time Temp Pulse Resp B/P (MAP) Pulse Ox O2 Delivery O2 Flow Rate FiO2 02/07/25 05:51 83 18 97 02/07/25 05:46 Nasal Cannula* 2 28 02/07/25 05:00 98.0 121/71 (88) 98.0 Physical Exam Heart: S1 and S2 regular. The patient is in sinus rhythm. Lungs: Scattered rhonchi. Abdomen: Benign. Extremities: Distal pulses palpable, 2+. No evidence for peripheral edema Labs/Diagnostic Data Labs Test 02/05/25 10:25 02/05/25 06:15 02/04/25 20:43 02/04/25 10:53 Range/Units Prothrombin Time 11.3 9.3-11.8 sec Prothrombin Time INR 1.07 0.9-1.15 White Blood Count 7.4 4.4-10.8 10^3/uL Red Blood Count 4.36 4.0-5.20 10^6/uL Hemoglobin 12.9 12.2-16.2 g/dL Hematocrit 37.8 36.0-46.0 % Mean Corpuscular Volume 86.8 80.0-100.0 fL Mean Corpuscular Hemoglobin 29.7 28.0-32.0 pg Mean Corpuscular Hemoglobin Concent 34.2 32.0-36.0 g/dL Red Cell Distribution Width 16.9 H 11.8-14.3 % Platelet Count 398 140-450 10^3/uL Mean Platelet Volume 7.7 6.9-10.8 fL Neutrophils (%) (Auto) 64.2 37.0-80.0 % Lymphocytes (%) (Auto) 21.5 10.0-50.0 % Monocytes (%) (Auto) 10.5 0.0-12.0 % Eosinophils (%) (Auto) 2.8 0.0-7.0 % Basophils (%) (Auto) 1.0 0.0-2.0 % Neutrophils # (Auto) 4.8 1.6-8.6 10 ^3/uL Lymphocytes # (Auto) 1.6 0.4-5.4 10 ^3/uL Monocytes # (Auto) 0.8 0-1.3 10 ^3/uL Eosinophils # (Auto) 0.2 0-0.8 10 ^3/uL Basophils # (Auto) 0.1 0-0.2 10 ^3/uL Nucleated Red Blood Cells 0.0 % Sodium Level 142 136-145 mmol/L Potassium Level 4.0 3.5-5.1 mmol/L Chloride Level 107 98-107 mmol/L Carbon Dioxide Level 26 20-31 mmol/L Anion Gap 9 5-15 Blood Urea Nitrogen 13 9-23 mg/dL Creatinine 1.01 0.550-1.02 mg/dL Glomerular Filtration Rate Calc 56 >90 mL/min BUN/Creatinine Ratio 12.9 10.0-20.0 Serum Glucose 119 H 74-106 mg/dL Calcium Level 9.0 8.7-10.4 mg/dL Total Bilirubin 0.4 0.2-1.0 mg/dL Aspartate Amino Transferase (AST) 21 13-40 U/L Alanine Aminotransferase (ALT) 9 7-40 U/L Alkaline Phosphatase 80 46-116 U/L Total Protein 6.1 5.7-8.2 g/dL Albumin 3.9 3.2-4.8 g/dL SARS-CoV-2 Antigen (Rapid) Negative NEGATIVE Urine Color Yellow Yellow Urine Clarity Ex.turbid Clear Urine pH 8.5 5.0-9.0 Urine Specific Sylvester 1.021 1.001-1.035 Urine Protein 2+ H Negative Urine Ketones Negative Negative Urine Blood Negative Negative /uL Urine Nitrite 2+ H Negative Urine Bilirubin Negative Negative Urine Urobilinogen Normal Negative mg/dL Urine Leukocyte Esterase 3+ Negative /uL Urine RBC 1 0 - 4 /hpf Urine Microscopic WBC 54 H 0-5 /HPF Urine Squamous Epithelial Cells Few <5 /hpf Urine Transitional Epithelial Cells Few <2 /hpf Urine Amorphous Crystals Mod None Seen /hpf Urine Bacteria None seen None Seen /hpf Urine Glucose Normal Normal mg/dL Plan/Recommendation This is an 79-year old female known outside to our practice who initially presented with left-sided hip pain status post reported fall approximately 1 week ago found to have an acute left hip fracture pending tentative surgical intervention 02/08/2025 by orthopedic services. Cardiology services were subsequently requested for cardiac pre-operative risk assessment. Patient herself is known to have coronary artery disease for which she is status post previous 3-V CABG with most recent PCI involving LAD 08/26/2024 on DAPT (Plavix/Aspirin). She is furthermore known to have baseline history ischemic cardiomyopathy with last known LVEF of 10% as per Echocardiogram findings 11/30/2024 which she is status post previous Biotronik biventricular AICD i mplantation. Recent device interrogation performed in November of 2024 during previous admission had revealed an overall appropriate functioning device. At present, initial 12-lead electrocardiogram had revealed an A-V paced rhythm at 75 bpm with no evidence for acute ischemic changes. Chest imaging was performed and had revealed no evidence for acute cardiopulmonary abnormalities. At present denies any active chest pains, shortness of breath, palpitations, dizziness, syncope, orthopnea, paroxysmal nocturnal dyspnea, or any further cardiac related symptoms. Cardiology services were subsequently involved for cardiac pre- operative risk assessment. Past medical history includes hypertension, hyperlipidemia, coronary artery disease, history of CABG (2010), systolic heart failure, ischemic cardiomyopathy, gout, kidney stone, s/p ESWL, frequent UTI, history of CVA, Diverticulosis, COPD, s/p COVID, depression, Anxiety, GERD, history of appendectomy/hysterectomy/tonsillectomy, and history of BiV ICD (Biotronik) implantation. She is chronically wheelchair-bound. She was previously in hospice for heart failure. She is allergic to codeine. She quit smoking years ago. She is DNR. She also has diagnosis of parkinsonism. Cardiac catheterization of August 26, 2024 (performed in [facility]) revealed triple-vessel big sandy coronary artery disease. LOCK TENDER CHIEF OPERATOR of obtuse marginal. LOCK TENDER CHIEF OPERATOR of RCA. Lad with 75% lesion and status post drug-eluting stent deployment. It is of note that there is patent SVG to obtuse marginal and also patent SVG to RCA. Cardiac catheterization of September 2020 revealed ejection fraction of 20%, LOCK TENDER CHIEF OPERATOR of SVG to diagonal, patent TAN, patent SVG to OM, patent SVG to PDA and LOCK TENDER CHIEF OPERATOR of RCA. Echocardiogram of November 30, 2024 revealed Dilated left ventricle, LVEF of around 10%. Pacing wire was seen in the right-sided chambers. There was mild mitral regurgitation. There was trace tricuspid regurgitation. As there was no good tricuspid regurgitation jet, right ventricular systolic pressure could not be estimated. Echocardiogram of September 04, 2024 reported: Dilated left ventricle. LVEF of 10%. Increased EDP. Pacing wire in right-sided chambers. Mild mitral regurgitation. As there was no good tricuspid regurgitation jet, right ventricular systolic pressure could not be estimated Echocardiogram of August 25, 2024 (performed in [facility]) for PE old ejection fraction of 20% Echocardiogram of reported: LV EF of 15-20%, biatrial enlargement, pacing wire in the right-sided chambers. Echocardiogram of November 22, 2023 revealed: Dilated left ventricle, LVEF of 10%, pacing wire and right-sided chambers, mild mitral regurgitation. Echocardiogram of August 28, 2023 revealed: Dilated left ventricle with significantly reduced systolic function. LVEF of 20%. Elevated LVEDP, dilated four chambers. Pacing wire was seen in right-sided chamber. [id number] MR. Echocardiogram of January 03, 2023 revealed ejection fraction of 20 to 25% and mild left ventricular enlargement Echocardiogram of March 25, 2023 (performed in the office) revealed four- chamber dilatation, LVEF of 20 to 25%, mild to moderate MR, mild TR, trace pulmonary valve insufficiency and right ventricular systolic pressure of 35 mmHg Echocardiogram of March 21, 2022 revealed ejection fraction of around 20%, mild MR/TR Echocardiogram of February 17, 2021 revealed dilated LV, LVEF around 25%, deborah re diffuse hypokinesis, increased LVEDP, dilated left and right atria, mild to moderate MR, mild TR. Echocardiogram of December 30, 2020 reported ejection fraction less than 20% and dilated left atrium. Echocardiogram of August 2020 revealed ejection fraction less than 25%, right atrial enlargement, left atrial enlargement and moderate MR. ASSESSMENT: Patient is an 79-year old female known outside to our practice who initially presented with left-sided hip pain status post reported fall approximately 1 week ago found to have an acute left hip fracture pending tentative surgical intervention 02/08/2025 by orthopedic services. Cardiology services were subsequently requested for cardiac pre-operative risk assessment. Patient herself is known to have coronary artery disease for which she is status post previous 3-V CABG with most recent PCI involving LAD 08/26/2024 on DAPT (Plavix/Aspirin). She is furthermore known to have baseline history ischemic cardiomyopathy with last known LVEF of 10% as per Echocardiogram findings 11/30/2024 which she is status post previous Biotronik biventricular AICD implantation. Recent device interrogation performed in November of 2024 during previous admission had revealed an overall appropriately functioning device. At present, initial 12-lead electrocardiogram had revealed an A-V paced rhythm at 75 bpm with no evidence for acute ischemic changes. Chest imaging was performed and had revealed no evidence for acute cardiopulmonary abnormalities. At present denies any active chest pains, shortness of breath, palpitations, dizziness, syncope, orthopnea, paroxysmal nocturnal dyspnea, or any further cardiac related symptoms. Evidence for left hip fracture Coronary artery disease, status post previous CABG/PCI Presence of Biotronik biventricular AICD Ischemic cardiomyopathy, history of Hypertension, controlled Hyperlipidemia Acute cystitis CARDIAC SUGGESTIONS FOR MANAGEMENT: Recognizing the above mentioned, cardiac-monge the patient is considered compensated at this point. Cardiac-monge, Niya is considered moderate-risk patient for tentative plan of undergoing moderate-risk ORIF involving left hip fracture under appropriate intra-operative and post-operative cardiac/hemodyn amic monitoring with further recommendation to avoid hypotension. Planned for tentative left ORIF 02/08/2025 as per orthopedic surgery DAPT (Aspirin/Plavix) currently held due to tentative plan of surgery Plan to resume DAPT post-operatively once cleared from orthopedic perspective Proceed with GDMT for systolic heart failure as concurrent conditions permit Continue Toprol-XL/Entresto/Aldactone/Ranolazine/Atorvastatin Proceed with optimized medical therapy/risk factor modification On IV antibiotic therapy as managed by primary team Follow up orthopedic surgery recommendations Proceed with close observation for overt signs of fluid overload Proceed with strict intakes, outputs, and daily weights Proceed with close rate and rhythm surveillance Proceed with close hemodynamic surveillance Proceed with optimized blood pressure control Transfuse to sustain HGB level above 7.0 Sustain Magnesium level greater than 2.0 Sustain Potassium level greater than 4.0 Follow up renal function and electrolytes Management in telemetry Will proceed to follow from a cardiac perspective Further recommendations per clinical progression All available diagnostic labs, EKG's, and images were personally reviewed Patient's status, findings, and plan of care was reviewed and discussed with supervising physician Dr. Claudio, who is in agreement with current plan of care. Plan of care discussed with and agreed upon by patient / primary RN Prognosis: Guarded Thank you for allowing me to participate in the care of this patient. Further recommendations based on patients clinical course and progression, primary attending, and other consultants. Will continue to follow with primary attending. If you have any questions or concerns, please do not hesitate to contact me. A total of 75 minutes was spent reviewing the patient record, examining the patient, making a diagnostic and therapeutic plan, discussing this plan with medical personnel, following up on diagnostic studies and following the patient for clinical stability excluding any and all procedures. At least 50% of this time was spent in direct, [id number] contact. Plan discussed with: Patient (Patient and Primary RN ) NO FISCHER Feb 07, 2025 06:39
[2025-02-07] MEDS ORDERED: HYDROmorphone HCL 2 MG/ML VL/or syr IV PRN (08:00)
--- NOTE | 2025-02-07 08:45 | DVHPN2 ---
Progress Note Date Seen: Feb 07, 2025 Medical Necessity Reason Pt with a Central, PICC or Fol: No Subjective Patient reports: Feels worse (Patient states she feels like she has a UTI with burning; pain in left leg getting worse) Objective vital signs Vital Sign Date Time Temp Pulse Resp B/P (MAP) Pulse Ox O2 Delivery O2 Flow Rate FiO2 02/07/25 07:34 Nasal Cannula* 3 32 02/07/25 07:13 80 20 128/79 02/07/25 05:51 97 02/07/25 05:00 98.0 98.0 Total Intake and Output 02/06/25 02/06/25 02/07/25 15:00 23:00 07:00 Intake Total 600 ml 480 ml Output Total 25 ml 200 ml Balance 575 ml 280 ml medications Current Medications Medications Dose Ordered Sig/Asha Route Start Time Stop Time Status Last Admin Dose Admin Ondansetron HCl 4 mg Q4HP PRN IV 02/04/25 13:30 02/07/25 06:42 4 MG Docusate Sodium 100 mg BIDPRN PRN PO 02/04/25 13:30 Enoxaparin Sodium 40 mg DAILY SC 02/05/25 10:00 02/05/25 10:36 40 MG Morphine Sulfate 2 mg Q4HPRN PRN IV 02/04/25 13:30 02/07/25 06:43 2 MG Nitroglycerin 0.4 mg Q5MINP PRN SL 02/04/25 13:30 Albuterol 2.5 mg Q6HR NEB 02/05/25 06:00 02/07/25 05:46 2.5 MG Ipratropium [place] 0.5 mg Q6HR NEB 02/05/25 06:00 02/07/25 05:46 0.5 MG Acetaminophen 650 mg Q6HP PRN PO 02/05/25 11:30 Cefepime HCl 50 ml @ 12.5 mls/hr Q8HR IV 02/07/25 14:00 Hydromorphone HCl 1 mg Q3HPRN PRN IV 02/07/25 08:00 Oxycodone/ Acetaminophen 1 tab Q4HPRN PRN PO 02/07/25 08:00 Examination: GENERAL:Abnormal, MSK:Abnormal laboratory and microbiology Laboratory Tests 02/05/25 06:15 Test 02/05/25 06:15 Range/Units Serum Glucose 119 H 74-106 mg/dL Problem List/Assessment/Plan Problem List/Assessment/Plan 79 yo F with left hip greater troch fracture extending into intertroch 1. Plan for ORIF Left hip fracture 02/08/25 2. Cardiac clearance pending 3. pain control 4. Urinalysis to rule out UTI as she is having burning; start on IV abx Plan discussed with: Patient My Orders My Orders Orders - JORGE DUMONT MD Procedure Category Date Status Time Urinalysis LAB 02/07/25 Logged 07:48 Cefepime 1gm/50ml PHA 02/07/25 In Process (Maxipime 1gm/50ml) 14:00 Npo (Nothing By DIET 02/08/25 Transmitted Mouth) Diet Breakfast Type And Screen BBK 02/07/25 Logged 07:48 Obtain Consent For: ORDERS 02/07/25 Transmitted 07:48 Obtain Consent For AME 02/07/25 In Process Anesthesia 07:48 Hydromorphone PHA 02/07/25 In Process Injection (Dilaudid 08:00 Oxycodone W/ Acet PHA 02/07/25 In Process 5/325mg Tab (Percocet 08:00 Dietary Evaluation Review Comments: 1) Ensure enliuve 240ml BID 2) Monitor PO intake, lab values, weight trend, and I/O Expected Outcomes/Goals: To meet >75% estimated needs Fu 3-5 days JORGE DUMONT MD Feb 07, 2025 08:45
--- NOTE | 2025-02-07 11:15 | DVHPN2 ---
Subjective Complains of pain of the left hip Changes from previous H/P or p: Changes Eyes: No Pain, No Vision change, No Conjunctivae inflammation, No Eyelid inflammation, No Other, No Redness ENT: No Ear pain, No Ear discharge, No Nose pain, No Nose discharge, No Nose congestion, No Mouth pain, No Mouth swelling, No Throat pain, No Throat swelling, No Other Cardiovascular: No Chest Pain, No Palpitations, No Orthopnea, No Paroxysmal Noc. Dyspnea, No Edema, No Lt Headedness, No Other Respiratory: No Cough, No Dry, No Shortness of breath, No SOB with excertion, No Wheezing, No Hemoptysis, No Pleuritic Pain, No Sputum, No Other Gastrointestinal: No Nausea, No Vomiting, No Abdominal Pain, No Diarrhea, No Constipation, No Melena, No Hematochezia, No Other Genitourinary: No Dysuria, No Frequency, No Incontinence, No Hematuria, No Retention, No Other Musculoskeletal: other (Left hip pain); No neck pain, No shoulder pain, No arm pain, No back pain, No hand pain, No leg pain, No foot pain Skin: No Rash, No Lesions, No Jaundice, No Bruising, No Other Objective Vitals Vital Signs Date Time Temp Pulse Resp B/P (MAP) Pulse Ox O2 Delivery O2 Flow Rate FiO2 02/07/25 11:05 78 18 96 02/07/25 11:05 Nasal Cannula 2.0 02/07/25 11:05 28 02/07/25 10:47 124/65 02/07/25 09:00 97.9 97.9 Intake/Output Intake and Output 02/07/25 07:00 Intake Total 1080 ml Output Total 225 ml Balance 855 ml Intake Oral 1080 ml Output Urine Total 225 ml # Bowel Movements 1 General Appearance: Alert, Oriented X3, Cooperative, No acute distress Lungs: Clear to auscultation, Normal air movement Cardiovascular: Regular rate, Normal S1, Normal S2 Abdomen: Normal bowel sounds, Soft, No tenderness Extremities: No edema Medications Current Medications Medications Dose Ordered Sig/Asha Route Start Time Stop Time Status Last Admin Dose Admin Ondansetron HCl 4 mg Q4HP PRN IV 02/04/25 13:30 02/07/25 10:45 4 MG Docusate Sodium 100 mg BIDPRN PRN PO 02/04/25 13:30 Enoxaparin Sodium 40 mg DAILY SC 02/05/25 10:00 02/05/25 10:36 40 MG Morphine Sulfate 2 mg Q4HPRN PRN IV 02/04/25 13:30 02/07/25 10:47 2 MG Nitroglycerin 0.4 mg Q5MINP PRN SL 02/04/25 13:30 Albuterol 2.5 mg Q6HR NEB 02/05/25 06:00 02/07/25 11:05 2.5 MG Ipratropium [place] 0.5 mg Q6HR NEB 02/05/25 06:00 02/07/25 11:05 0.5 MG Acetaminophen 650 mg Q6HP PRN PO 02/05/25 11:30 Cefepime HCl 50 ml @ 12.5 mls/hr Q8HR IV 02/07/25 14:00 Hydromorphone HCl 1 mg Q3HPRN PRN IV 02/07/25 08:00 Oxycodone/ Acetaminophen 1 tab Q4HPRN PRN PO 02/07/25 08:00 Laboratory Results Laboratory Tests 02/05/25 06:15 Urinalysis Test 02/04/25 10:53 Urine Color Yellow (Yellow) Urine Clarity Ex.turbid (Clear) Urine pH 8.5 (5.0-9.0) Urine Specific [place] 1.021 (1.001-1.035) Urine Protein 2+ (Negative) H Urine Ketones Negative (Negative) Urine Blood Negative /uL (Negative) Urine Nitrite 2+ (Negative) H Urine Bilirubin Negative (Negative) Urine Urobilinogen Normal mg/dL (Negative) Urine Leukocyte Esterase 3+ /uL (Negative) Urine RBC 1 /hpf (0 - 4) Urine Microscopic WBC 54 /HPF (0-5) H Urine Squamous Epithelial Cells Few /hpf (<5) Urine Transitional Epithelial Cells Few /hpf (<2) Urine Amorphous Crystals Mod /hpf (None Seen) Urine Bacteria None seen /hpf (None Seen) Urine Glucose Normal mg/dL (Normal) Assessment/Plan Assessment/Plan Left hip fracture Chronic anemia Anxiety Asthma Coronary artery disease COPD History of CVA Hypertension Mixed hyperlipidemia Status post pacemaker Status post CABG Plan Orthopedic consult is pending Cardiology consult Lovenox subcutaneously Med neb treatments as needed Pain management as needed Full code Advance directives discussed for 20 minute 02/06/2025: Consult cardiology Dr. Mercado Orthopedic evaluation is ongoing if she is cleared by Cardiology then she would be a candidate for surgery The patient is high-risk for surgery due to her coronary artery disease and COPD and underlying comorbidities 02/07/2025: UTI: Starts IV antibiotics cefepime Orthopedic consult recommended surgery, awaiting cardiology clearance Cardiac consultation Pain management Plan discussed with: Patient My Orders Orders - YENNY FRAIRE MD Procedure Category Date Status Time Discontinue Joshi AME 02/06/25 In Process Catheter 18:25 Insert Joshi Catheter AME 02/06/25 In Process 18:25 Date of Service: Feb 07, 2025 Billing Provider: YENNY FRAIRE MD Common Visit Codes: [id number] INP/OBS CARE(HIGH) YENNY FRAIRE MD Feb 07, 2025 11:15
[2025-02-07] MEDS: CEFEPIME 1GM/50ML 50 ML IV SCH (14:20)
[2025-02-07] MEDS: HYDROMORPHONE HCL 1 MG/ML INJ IV PRN (16:18)
[2025-02-08] VITALS (18 sets, daily range): BP systolic 103–136; BP diastolic 44–79; PULSE 16–77; RESP 15–71; TEMP 97.8–99.5; O2SAT 94–100
[2025-02-08 05:11] LABS: Urine Protein, UAD 1+ (Negative); Urine WBC Clumps PRESENT /hpf (None Seen)
--- NOTE | 2025-02-08 08:32 | DVHPN2 ---
Subjective The patient does not want to have surgery Changes from previous H/P or p: Changes Eyes: No Pain, No Vision change, No Conjunctivae inflammation, No Eyelid inflammation, No Other, No Redness ENT: No Ear pain, No Ear discharge, No Nose pain, No Nose discharge, No Nose congestion, No Mouth pain, No Mouth swelling, No Throat pain, No Throat swelling, No Other Cardiovascular: No Chest Pain, No Palpitations, No Orthopnea, No Paroxysmal Noc. Dyspnea, No Edema, No Lt Headedness, No Other Respiratory: No Cough, No Dry, No Shortness of breath, No SOB with excertion, No Wheezing, No Hemoptysis, No Pleuritic Pain, No Sputum, No Other Gastrointestinal: No Nausea, No Vomiting, No Abdominal Pain, No Diarrhea, No Constipation, No Melena, No Hematochezia, No Other Genitourinary: No Dysuria, No Frequency, No Incontinence, No Hematuria, No Retention, No Other Musculoskeletal: other (Left hip pain); No neck pain, No shoulder pain, No arm pain, No back pain, No hand pain, No leg pain, No foot pain Skin: No Rash, No Lesions, No Jaundice, No Bruising, No Other Objective Vitals Vital Signs Date Time Temp Pulse Resp B/P (MAP) Pulse Ox O2 Delivery O2 Flow Rate FiO2 02/08/25 06:50 77 18 136/69 02/08/25 05:42 99 02/08/25 05:36 Nasal Cannula* 2 28 02/08/25 05:00 97.8 97.8 Intake/Output Intake and Output 02/08/25 07:00 Intake Total 1270 ml Output Total 600 ml Balance 670 ml Intake Oral 1170 ml IV Total 100 ml Output Urine Total 600 ml # Voids 4 General Appearance: Alert, Oriented X3, Cooperative, No acute distress Lungs: Clear to auscultation, Normal air movement Cardiovascular: Regular rate, Normal S1, Normal S2 Abdomen: Normal bowel sounds, Soft, No tenderness Extremities: No edema Medications Current Medications Medications Dose Ordered Sig/Asha Route Start Time Stop Time Status Last Admin Dose Admin Ondansetron HCl 4 mg Q4HP PRN IV 02/04/25 13:30 02/08/25 05:01 4 MG Docusate Sodium 100 mg BIDPRN PRN PO 02/04/25 13:30 Enoxaparin Sodium 40 mg DAILY SC 02/05/25 10:00 02/05/25 10:36 40 MG Nitroglycerin 0.4 mg Q5MINP PRN SL 02/04/25 13:30 Albuterol 2.5 mg Q6HR NEB 02/05/25 06:00 02/08/25 05:36 2.5 MG Ipratropium [place] 0.5 mg Q6HR NEB 02/05/25 06:00 02/08/25 05:36 0.5 MG Cefepime HCl 50 ml @ 12.5 mls/hr Q8HR IV 02/07/25 14:00 02/08/25 06:20 12.5 MLS/HR Oxycodone/ Acetaminophen 1 tab Q4HPRN PRN PO 02/07/25 08:00 Hydromorphone HCl 1 mg Q3HPRN PRN IV 02/07/25 15:00 02/08/25 06:20 1 MG Laboratory Results Laboratory Tests 02/05/25 06:15 Urinalysis Test 02/04/25 10:53 02/08/25 04:42 Urine Transitional Epithelial Cells Few /hpf (<2) Urine Amorphous Crystals Mod /hpf (None Seen) Urine Color Colorless (Yellow) Urine Clarity Ex.turbid (Clear) Urine pH 7.5 (5.0-9.0) Urine Specific [place] 1.020 (1.001-1.035) Urine Protein 1+ (Negative) H Urine Ketones Negative (Negative) Urine Blood Trace /uL (Negative) H Urine Nitrite 1+ (Negative) H Urine Bilirubin Negative (Negative) Urine Urobilinogen Normal mg/dL (Negative) Urine Leukocyte Esterase 2+ /uL (Negative) Urine RBC 45 /hpf (0 - 4) Urine WBC Clumps Present /hpf (None Seen) Urine Microscopic WBC 1151 /HPF (0-5) H Urine Squamous Epithelial Cells Few /hpf (<5) Urine Bacteria Few /hpf (None Seen) H Urine Glucose Normal mg/dL (Normal) Assessment/Plan Assessment/Plan Left hip fracture Chronic anemia Anxiety Asthma Coronary artery disease COPD History of CVA Hypertension Mixed hyperlipidemia Status post pacemaker Status post CABG Plan Orthopedic consult is pending Cardiology consult Lovenox subcutaneously Med neb treatments as needed Pain management as needed Full code Advance directives discussed for 20 minute 02/06/2025: Consult cardiology Dr. Mercado Orthopedic evaluation is ongoing if she is cleared by Cardiology then she would be a candidate for surgery The patient is high-risk for surgery due to her coronary artery disease and COPD and underlying comorbidities 02/07/2025: UTI: Starts IV antibiotics cefepime Orthopedic consult recommended surgery, awaiting cardiology clearance Cardiac consultation Pain management 02/08/2025: Discussed her surgical options again and she says she does not want to have surgery She would like to discuss her condition with her account receivable clerk Dr. Mercado Surgery has been canceled for now Consult delinquency prevention social worker to arrange SNF for PT and pain management Plan discussed with: Patient My Orders Orders - YENNY FRAIRE MD Procedure Category Date Status Time Cardiac DIET 02/08/25 Transmitted Diet-2gna,Lofat,Lochol Breakfast Date of Service: Feb 08, 2025 Billing Provider: YENNY FRAIRE MD Common Visit Codes: [id number] INP/OBS CARE(HIGH) YENNY FRAIRE MD Feb 08, 2025 08:32
--- NOTE | 2025-02-08 08:48 | DVHPN2 ---
Progress Note - Dictate Date Seen: Feb 08, 2025 Medical Necessity Reason Pt with a Central, PICC or Fol: No vital signs Vital Sign Date Time Temp Pulse Resp B/P (MAP) Pulse Ox O2 Delivery O2 Flow Rate FiO2 02/08/25 06:50 77 18 136/69 02/08/25 05:42 99 02/08/25 05:36 Nasal Cannula* 2 28 02/08/25 05:00 97.8 97.8 Total Intake and Output 02/07/25 02/07/25 02/08/25 15:00 23:00 07:00 Intake Total 480 ml 290 ml 500 ml Output Total 600 ml Balance 480 ml 290 ml -100 ml medications Current Medications Medications Dose Ordered Sig/Asha Route Start Time Stop Time Status Last Admin Dose Admin Ondansetron HCl 4 mg Q4HP PRN IV 02/04/25 13:30 02/08/25 05:01 4 MG Docusate Sodium 100 mg BIDPRN PRN PO 02/04/25 13:30 Enoxaparin Sodium 40 mg DAILY SC 02/05/25 10:00 02/05/25 10:36 40 MG Nitroglycerin 0.4 mg Q5MINP PRN SL 02/04/25 13:30 Albuterol 2.5 mg Q6HR NEB 02/05/25 06:00 02/08/25 05:36 2.5 MG Ipratropium [place] 0.5 mg Q6HR NEB 02/05/25 06:00 02/08/25 05:36 0.5 MG Cefepime HCl 50 ml @ 12.5 mls/hr Q8HR IV 02/07/25 14:00 02/08/25 06:20 12.5 MLS/HR Oxycodone/ Acetaminophen 1 tab Q4HPRN PRN PO 02/07/25 08:00 Hydromorphone HCl 1 mg Q3HPRN PRN IV 02/07/25 15:00 02/08/25 06:20 1 MG Artificial Tears 1 drop Q2HP PRN EACHEYE 02/08/25 08:30 UNV laboratory and microbiology Laboratory Tests 02/05/25 06:15 Test 02/05/25 06:15 Range/Units Serum Glucose 119 H 74-106 mg/dL Assessment/Plan This is an 79-year old female known outside to our practice who initially presented with left-sided hip pain status post reported fall approximately 1 week ago found to have an acute left hip fracture pending tentative surgical intervention 02/08/2025 by orthopedic services. Cardiology services were subsequently requested for cardiac pre-operative risk assessment. Patient herself is known to have coronary artery disease for which she is status post previous 3-V CABG with most recent PCI involving LAD 08/26/2024 on DAPT (Plavix/Aspirin). She is furthermore known to have baseline history ischemic cardiomyopathy with last known LVEF of 10% as per Echocardiogram findings 11/30/2024 which she is status post previous Biotronik biventricular AICD implantation. Recent device interrogation performed in November of 2024 during previous admission had revealed an overall appropriate functioning device. At present, initial 12-lead electrocardiogram had revealed an A-V paced rhythm at 75 bpm with no evidence for acute ischemic changes. Chest imaging was performed and had revealed no evidence for acute cardiopulmonary abnormalities. At present denies any active chest pains, shortness of breath, palpitations, dizziness, syncope, orthopnea, paroxysmal nocturnal dyspnea, or any further cardiac related symptoms. Cardiology services were subsequently involved for cardiac pre- operative risk assessment. Past medical history includes hypertension, hyperlipidemia, coronary artery disease, history of CABG (2010), systolic heart failure, ischemic cardiomyopathy, gout, kidney stone, s/p ESWL, frequent UTI, history of CVA, Diverticulosis, COPD, Emphysema, s/p COVID, depression, Anxiety, GERD, history of appendectomy/hysterectomy/tonsillectomy, and history of BiV ICD (Biotronik) implantation. She is chronically wheelchair-bound. She was previously in hospice for heart failure. She is allergic to codeine. She quit smoking years ago. She is DNR. She also has diagnosis of parkinsonism. Cardiac catheterization of August 26, 2024 (performed in [facility]) revealed triple-vessel [place] coronary artery disease. CYBER ENGINEER of obtuse marginal. CYBER ENGINEER of RCA. Lad with 75% lesion and status post drug-eluting stent deployment. It is of note that there is patent SVG to obtuse marginal and also patent SVG to RCA. Cardiac catheterization of September 2020 revealed ejection fraction of 20%, CYBER ENGINEER of SVG to diagonal, patent TAN, patent SVG to OM, patent SVG to PDA and CYBER ENGINEER of RCA. Echocardiogram of November 30, 2024 revealed Dilated left ventricle, LVEF of around 10%. Pacing wire was seen in the right-sided chambers. There was mild mitral regurgitation. There was trace tricuspid regurgitation. As there was no good tricuspid regurgitation jet, right ventricular systolic pressure could not be estimated. Echocardiogram of September 04, 2024 reported: Dilated left ventricle. LVEF of 10%. Increased EDP. Pacing wire in right-sided chambers. Mild mitral regurgitation. As there was no good tricuspid regurgitation jet, right ventricular systolic pressure could not be estimated Echocardiogram of August 25, 2024 (performed in [facility]) for PE old ejection fraction of 20% Echocardiogram of reported: LV EF of 15-20%, biatrial enlargement, pacing wire in the right-sided chambers. Echocardiogram of November 22, 2023 revealed: Dilated left ventricle, LVEF of 10%, pacing wire and right-sided chambers, mild mitral regurgitation. Echocardiogram of August 28, 2023 revealed: Dilated left ventricle with significantly reduced systolic function. LVEF of 20%. Elevated LVEDP, dilated four chambers. Pacing wire was seen in right-sided chamber. [id number] MR. Echocardiogram of January 03, 2023 revealed ejection fraction of 20 to 25% and mild left ventricular enlargement Echocardiogram of March 25, 2023 (performed in the office) revealed four- chamber dilatation, LVEF of 20 to 25%, mild to moderate MR, mild TR, trace pulmonary valve insufficiency and right ventricular systolic pressure of 35 mmHg Echocardiogram of March 21, 2022 revealed ejection fraction of around 20%, mild MR/TR Echocardiogram of February 17, 2021 revealed dilated LV, LVEF around 25%, severe diffuse hypokinesis, increased LVEDP, dilated left and right atria, mild to moderate MR, mild TR. Echocardiogram of December 30, 2020 reported ejection fraction less than 20% and dilated left atrium. Echocardiogram of August 2020 revealed ejection fraction less than 25%, right atrial enlargement, left atrial enlargement and moderate MR. Hgb: 12.8 - 12.9 Creat: 1.09 - 1.01 K: 4.3 - 4.0 Chest xry revealed: IMPRESSION: No acute cardiopulmonary disease. Hip CT revealed: IMPRESSION: 1. Nondisplaced fracture of the left greater trochanter. Fracture extension minimally into the left intertrochanteric region. No fracture involvement of the lesser trochanter no extension to the transcervical region. Hip Xry revealed: IMPRESSION: Irregular lucencies at the greater trochanter, suspected nondisplaced fracture. Can not exclude extension to the intertrochanteric region. CT could be considered to further characterize if clinically indicated. ASSESSMENT: Patient is an 79-year old female known outside to our practice who initially presented with left-sided hip pain status post reported fall approximately 1 week ago found to have an acute left hip fracture pending tentative surgical intervention 02/08/2025 by orthopedic services. Cardiology services were subsequently requested for cardiac pre-operative risk assessment. Patient herself is known to have coronary artery disease for which she is status post previous 3-V CABG with most recent PCI involving LAD 08/26/2024 on DAPT (Plavix/Aspirin). She is furthermore known to have baseline history ischemic cardiomyopathy with last known LVEF of 10% as per Echocardiogram findings 11/30/2024 which she is status post previous Biotronik biventricular AICD implantation. Recent device interrogation performed in November of 2024 during previous admission had revealed an overall appropriately functioning device. At present, initial 12-lead electrocardiogram had revealed an A-V paced rhythm at 75 bpm with no evidence for acute ischemic changes. Chest imaging was performed and had revealed no evidence for acute cardiopulmonary abnormalities. At present denies any active chest pains, shortness of breath, palpitations, dizziness, syncope, orthopnea, paroxysmal nocturnal dyspnea, or any further cardiac related symptoms. Evidence for left hip fracture Coronary artery disease, status post previous CABG/PCI Presence of Biotronik biventricular AICD Ischemic cardiomyopathy, history of Hypertension, controlled Hyperlipidemia Acute cystitis CARDIAC SUGGESTIONS FOR MANAGEMENT: Recognizing the above mentioned, cardiac-monge the patient is considered compensated at this point. Cardiac-monge, Niya is considered moderate-risk patient for tentative plan of undergoing moderate-risk ORIF involving left hip fracture under appropriate intra-operative and post-operative cardiac/hemodynamic monitoring with further recommendation to avoid hypotension. Planned for tentative left ORIF 02/08/2025 as per orthopedic surgery DAPT (Aspirin/Plavix) currently were held due to tentative plan of surgery Plan to resume DAPT post-operatively once cleared from orthopedic perspective Proceed with GDMT for systolic heart failure as concurrent conditions permit Continue Toprol-XL/Entresto/Aldactone/Ranolazine/Atorvastatin Proceed with optimized medical therapy/risk factor modification On IV antibiotic therapy as managed by primary team Follow up orthopedic surgery recommendations Patient is mentioning that she is not in favor of offered surgery. If she chooses against the surgery and if no surgery is to be performed: ASA: 81 mg daily and Clopidogrel (Plavix): 75 mg daily Proceed with close observation for overt signs of fluid overload Proceed with strict intakes, outputs, and daily weights Proceed with close rate and rhythm surveillance Proceed with close hemodynamic surveillance Proceed with optimized blood pressure control Transfuse to sustain HGB level above 7.0 Sustain Magnesium level greater than 2.0 Sustain Potassium level greater than 4.0 Follow up renal function and electrolytes Management in telemetry Will proceed to follow from a cardiac perspective Further recommendations per clinical progression All available diagnostic labs, EKG's, and images were personally reviewed Plan of care discussed with and agreed upon by patient / primary RN Prognosis: Guarded A total of 75 minutes was spent reviewing the patient record, examining the patient, making a diagnostic and therapeutic plan, discussing this plan with medical personnel, following up on diagnostic studies and following the patient for clinical stability excluding any and all procedures. At least 50% of this time was spent in direct, [id number] contact. Thank you for allowing me to participate in this patient's care. Further recommendations will depend on patient's clinical course. Please do not hesitate to contact me if you have any questions or concerns. This medical document was created using electronic medical record system with [employer] computerized dictation system. Although this document has been carefully reviewed, there may still be some phonetic and typographical errors. These areas are purely typographical due to the imperfection of the software programs, and do not reflect any compromise in the patient's medical care. Dietary Evaluation Review Comments: 1) Ensure enliuve 240ml BID 2) Monitor PO intake, lab values, weight trend, and I/O Expected Outcomes/Goals: To meet >75% estimated needs Fu 3-5 days Plan discussed with: Patient, Other (nurse) RODRIGUEZ LEBRON MD Feb 08, 2025 08:48
--- NOTE | 2025-02-08 11:37 | DVHPN2 ---
Progress Note Date Seen: Feb 08, 2025 Medical Necessity Reason Pt with a Central, PICC or Fol: No Subjective Patient reports: No new complaints Objective vital signs Vital Sign Date Time Temp Pulse Resp B/P (MAP) Pulse Ox O2 Delivery O2 Flow Rate FiO2 02/08/25 11:26 73 18 96 02/08/25 11:21 Nasal Cannula* 2 28 02/08/25 11:03 118/52 02/08/25 09:00 98.4 98.4 Total Intake and Output 02/07/25 02/07/25 02/08/25 15:00 23:00 07:00 Intake Total 480 ml 290 ml 500 ml Output Total 600 ml Balance 480 ml 290 ml -100 ml medications Current Medications Medications Dose Ordered Sig/Asha Route Start Time Stop Time Status Last Admin Dose Admin Ondansetron HCl 4 mg Q4HP PRN IV 02/04/25 13:30 02/08/25 10:28 4 MG Docusate Sodium 100 mg BIDPRN PRN PO 02/04/25 13:30 Enoxaparin Sodium 40 mg DAILY SC 02/05/25 10:00 02/08/25 09:48 40 MG Nitroglycerin 0.4 mg Q5MINP PRN SL 02/04/25 13:30 Albuterol 2.5 mg Q6HR NEB 02/05/25 06:00 02/08/25 11:20 2.5 MG Ipratropium [place] 0.5 mg Q6HR NEB 02/05/25 06:00 02/08/25 11:21 0.5 MG Cefepime HCl 50 ml @ 12.5 mls/hr Q8HR IV 02/07/25 14:00 02/08/25 06:20 12.5 MLS/HR Oxycodone/ Acetaminophen 1 tab Q4HPRN PRN PO 02/07/25 08:00 Hydromorphone HCl 1 mg Q3HPRN PRN IV 02/07/25 15:00 02/08/25 10:33 1 MG Artificial Tears 1 drop Q2HP PRN EACHEYE 02/08/25 08:30 Aspirin 81 mg DAILY PO 02/08/25 10:00 Clopidogrel Bisulfate 75 mg DAILY PO 02/08/25 10:00 Atorvastatin Calcium 40 mg HS PO 02/08/25 22:00 Spironolactone 25 mg DAILY PO 02/08/25 10:00 Metoprolol Succinate 25 mg DAILY PO 02/08/25 10:00 Ranolazine 500 mg BID PO 02/08/25 10:00 Sacubitril/ Valsartan 1 tab BID PO 02/08/25 10:00 Amiodarone HCl 100 mg HS PO 02/08/25 22:00 Examination: GENERAL:Abnormal, MSK:Abnormal laboratory and microbiology Laboratory Tests 02/05/25 06:15 Test 02/05/25 06:15 Range/Units Serum Glucose 119 H 74-106 mg/dL Problem List/Assessment/Plan Problem List/Assessment/Plan 79 yo F with left hip greater troch fracture extending into intertroch -- Patient does not want surgery 1.NWB LLE 2. pain control 3. DVT ppx 4. fu in [facility] Ortho clinic in 2 weeks with left hip xray Plan discussed with: Patient My Orders My Orders Orders - JORGE DUMONT MD Procedure Category Date Status Time Hydromorphone Hcl Inj PHA 02/07/25 In Process (Dilaudid Injectio 15:00 Dietary Evaluation Review Comments: 1) Ensure enliuve 240ml BID 2) Monitor PO intake, lab values, weight trend, and I/O Expected Outcomes/Goals: To meet >75% estimated needs Fu 3-5 days JORGE DUMONT MD Feb 08, 2025 11:37
[2025-02-08] MEDS: SPIRONOLACTONE 25 MG TAB PO SCH (12:10)
[2025-02-08] MEDS: RANOLAZINE ER 500 MG TAB PO SCH (12:11)
[2025-02-08] MEDS: SACUBITRIL-VALSARTAN 24mg/26mg TAB PO SCH (12:11)
[2025-02-08] MEDS: CLOPIDOGREL BISULFATE 75 MG TAB PO SCH (12:11)
[2025-02-08] MEDS: METOPROLOL SUCCINATE XL 50 MG TAB PO SCH (12:12)
[2025-02-08] MEDS: ARTIFICIAL TEARS 15ml EACHEYE PRN (14:21)
[2025-02-08] MEDS: HYDROMORPHONE HCL 1 MG/ML INJ ONE ×3 (17:50→17:51)
[2025-02-08] MEDS: CEFEPIME 1GM/50ML 50 ML IV ONE (17:50)
[2025-02-08] MEDS: AMIODARONE HCL 200 MG TAB PO SCH (21:45)
[2025-02-08] MEDS: ATORVASTATIN 20 MG TAB PO SCH (21:45)
[2025-02-09] VITALS (14 sets, daily range): BP systolic 96–118; BP diastolic 43–66; PULSE 60–100; RESP 14–20; TEMP 98.1–98.8; O2SAT 92–100
--- NOTE | 2025-02-09 07:53 | ECG ---
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
--- NOTE | 2025-02-09 08:39 | DVHPN2 ---
Progress Note - Dictate Date Seen: Feb 09, 2025 Medical Necessity Reason Pt with a Central, PICC or Fol: No vital signs Vital Sign Date Time Temp Pulse Resp B/P (MAP) Pulse Ox O2 Delivery O2 Flow Rate FiO2 02/09/25 08:03 98.1 69 20 106/59 (75) 94 98.1 02/09/25 06:14 Nasal Cannula 2.0 02/09/25 06:14 28 Total Intake and Output 02/08/25 02/08/25 02/09/25 15:00 23:00 07:00 Intake Total 50 ml 500 ml 750 ml Output Total 1200 ml 400 ml Balance 50 ml -700 ml 350 ml medications Current Medications Medications Dose Ordered Sig/Asha Route Start Time Stop Time Status Last Admin Dose Admin Ondansetron HCl 4 mg Q4HP PRN IV 02/04/25 13:30 02/09/25 07:00 4 MG Docusate Sodium 100 mg BIDPRN PRN PO 02/04/25 13:30 Enoxaparin Sodium 40 mg DAILY SC 02/05/25 10:00 02/08/25 09:48 40 MG Nitroglycerin 0.4 mg Q5MINP PRN SL 02/04/25 13:30 Albuterol 2.5 mg Q6HR NEB 02/05/25 06:00 02/09/25 06:14 2.5 MG Ipratropium [place] 0.5 mg Q6HR NEB 02/05/25 06:00 02/09/25 06:14 0.5 MG Cefepime HCl 50 ml @ 12.5 mls/hr Q8HR IV 02/07/25 14:00 02/09/25 05:17 12.5 MLS/HR Oxycodone/ Acetaminophen 1 tab Q4HPRN PRN PO 02/07/25 08:00 Hydromorphone HCl 1 mg Q3HPRN PRN IV 02/07/25 15:00 02/09/25 07:01 1 MG Artificial Tears 1 drop Q2HP PRN EACHEYE 02/08/25 08:30 02/09/25 05:30 1 DROP Aspirin 81 mg DAILY PO 02/08/25 10:00 02/08/25 12:10 81 MG Clopidogrel Bisulfate 75 mg DAILY PO 02/08/25 10:00 02/08/25 12:11 75 MG Atorvastatin Calcium 40 mg HS PO 02/08/25 22:00 02/08/25 21:45 40 MG Spironolactone 25 mg DAILY PO 02/08/25 10:00 02/08/25 12:10 25 MG Metoprolol Succinate 25 mg DAILY PO 02/08/25 10:00 02/08/25 12:12 25 MG Ranolazine 500 mg BID PO 02/08/25 10:00 02/08/25 21:44 500 MG Sacubitril/ Valsartan 1 tab BID PO 02/08/25 10:00 02/08/25 21:45 1 TAB Amiodarone HCl 100 mg HS PO 02/08/25 22:00 02/08/25 21:45 100 MG laboratory and microbiology Laboratory Tests 02/05/25 06:15 Test 02/05/25 06:15 Range/Units Serum Glucose 119 H 74-106 mg/dL Assessment/Plan This is an 79-year old female known outside to our practice who initially presented with left-sided hip pain status post reported fall approximately 1 week ago found to have an acute left hip fracture pending tentative surgical intervention 02/08/2025 by orthopedic services. Cardiology services were subsequently requested for cardiac pre-operative risk assessment. Patient herself is known to have coronary artery disease for which she is status post previous 3-V CABG with most recent PCI involving LAD 08/26/2024 on DAPT (Plavix/Aspirin). She is furthermore known to have baseline history ischemic cardiomyopathy with last known LVEF of 10% as per Echocardiogram findings 11/30/2024 which she is status post previous Biotronik biventricular AICD implantation. Recent device interrogation performed in November of 2024 during previous admission had revealed an overall appropriate functioning device. At present, initial 12-lead electrocardiogram had revealed an A-V paced rhythm at 75 bpm with no evidence for acute ischemic changes. Chest imaging was performed and had revealed no evidence for acute cardiopulmonary abnormalities. At present denies any active chest pains, shortness of breath, palpitations, dizziness, syncope, orthopnea, paroxysmal nocturnal dyspnea, or any further cardiac related symptoms. Cardiology services were subsequently involved for cardiac pre- operative risk assessment. Past medical history includes hypertension, hyperlipidemia, coronary artery disease, history of CABG (2010), systolic heart failure, ischemic cardiomyopathy, gout, kidney stone, s/p ESWL, frequent UTI, history of CVA, Diverticulosis, COPD, Emphysema, s/p COVID, depression, Anxiety, GERD, history of appendectomy/hysterectomy/tonsillectomy, and history of BiV ICD (Biotronik) implantation. She is chronically wheelchair-bound. She was previously in hospice for heart failure. She is allergic to codeine. She quit smoking years ago. She is DNR. She also has diagnosis of parkinsonism. Cardiac catheterization of August 26, 2024 (performed in [facility]) revealed triple-vessel nondalton coronary artery disease. 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 PERSONNEL ASSISTANT of RCA. Lad with 75% lesion and status post drug-eluting stent deployment. It is of note that there is patent SVG to obtuse marginal and also patent SVG to RCA. Cardiac catheterization of September 2020 revealed ejection fraction of 20%, PERSONNEL ASSISTANT of SVG to diagonal, patent TAN, patent SVG to OM, patent SVG to PDA and PERSONNEL ASSISTANT of RCA. Echocardiogram of November 30, 2024 revealed Dilated left ventricle, LVEF of around 10%. Pacing wire was seen in the right-sided chambers. There was mild mitral regurgitation. There was trace tricuspid regurgitation. As there was no good tricuspid regurgitation jet, right ventricular systolic pressure could not be estimated. Echocardiogram of September 04, 2024 reported: Dilated left ventricle. LVEF of 10%. Increased EDP. Pacing wire in right-sided chambers. Mild mitral regurgitation. As there was no good tricuspid regurgitation jet, right ventricular systolic pressure could not be estimated Echocardiogram of August 25, 2024 (performed in [facility]) for PE old ejection fraction of 20% Echocardiogram of reported: LV EF of 15-20%, biatrial enlargement, pacing wire in the right-sided chambers. Echocardiogram of November 22, 2023 revealed: Dilated left ventricle, LVEF of 10%, pacing wire and right-sided chambers, mild mitral regurgitation. Echocardiogram of August 28, 2023 revealed: Dilated left ventricle with significantly reduced systolic function. LVEF of 20%. Elevated LVEDP, dilated four chambers. Pacing wire was seen in right-sided chamber. [id number] MR. Echocardiogram of January 03, 2023 revealed ejection fraction of 20 to 25% and mild left ventricular enlargement Echocardiogram of March 25, 2023 (performed in the office) revealed four- chamber dilatation, LVEF of 20 to 25%, mild to moderate MR, mild TR, trace pulmonary valve insufficiency and right ventricular systolic pressure of 35 mmHg Echocardiogram of March 21, 2022 revealed ejection fraction of around 20%, mild MR/TR Echocardiogram of February 17, 2021 revealed dilated LV, LVEF around 25%, severe diffuse hypokinesis, increased LVEDP, dilated left and right atria, mild to moderate MR, mild TR. Echocardiogram of December 30, 2020 reported ejection fraction less than 20% and dilated left atrium. Echocardiogram of August 2020 revealed ejection fraction less than 25%, right atrial enlargement, left atrial enlargement and moderate MR. Hgb: 12.8 - 12.9 Creat: 1.09 - 1.01 K: 4.3 - 4.0 Chest xry revealed: IMPRESSION: No acute cardiopulmonary disease. Hip CT revealed: IMPRESSION: 1. Nondisplaced fracture of the left greater trochanter. Fracture extension minimally into the left intertrochanteric region. No fracture involvement of the lesser trochanter no extension to the transcervical region. Hip Xry revealed: IMPRESSION: Irregular lucencies at the greater trochanter, suspected nondisplaced fracture. Can not exclude extension to the intertrochanteric region. CT could be considered to further characterize if clinically indicated. ASSESSMENT: Patient is an 79-year old female known outside to our practice who initially presented with left-sided hip pain status post reported fall approximately 1 week ago found to have an acute left hip fracture pending tentative surgical intervention 02/08/2025 by orthopedic services. Cardiology services were subsequently requested for cardiac pre-operative risk assessment. Patient herself is known to have coronary artery disease for which she is status post previous 3-V CABG with most recent PCI involving LAD 08/26/2024 on DAPT (Plavix/Aspirin). She is furthermore known to have baseline history ischemic cardiomyopathy with last known LVEF of 10% as per Echocardiogram findings 11/30/2024 which she is status post previous Biotronik biventricular AICD implantation. Recent device interrogation performed in November of 2024 during previous admission had revealed an overall appropriately functioning device. At present, initial 12-lead electrocardiogram had revealed an A-V paced rhythm at 75 bpm with no evidence for acute ischemic changes. Chest imaging was performed and had revealed no evidence for acute cardiopulmonary abnormalities. At present denies any active chest pains, shortness of breath, palpitations, dizziness, syncope, orthopnea, paroxysmal nocturnal dyspnea, or any further cardiac related symptoms. Evidence for left hip fracture Coronary artery disease, status post previous CABG/PCI Presence of Biotronik biventricular AICD Ischemic cardiomyopathy, history of Hypertension, controlled Hyperlipidemia Acute cystitis CARDIAC SUGGESTIONS FOR MANAGEMENT: Recognizing the above mentioned, cardiac-monge the patient is considered compensated at this point. Cardiac-monge, Niya is considered moderate-risk patient for tentative plan of undergoing moderate-risk ORIF involving left hip fracture under appropriate intra-operative and post-operative cardiac/hemodynamic monitoring with further recommendation to avoid hypotension. Planned for tentative left ORIF 02/08/2025 as per orthopedic surgery, patient refused. DAPT (Aspirin/Plavix) currently were held due to tentative plan of surgery, restarted Proceed with GDMT for systolic heart failure as concurrent conditions permit Continue Toprol-XL/Entresto/Aldactone/Ranolazine/Atorvastatin Proceed with optimized medical therapy/risk factor modification On IV antibiotic therapy as managed by primary team Follow up orthopedic surgery recommendations Patient is mentioning that she is not in favor of offered surgery. If she chooses against the surgery and if no surgery is to be performed: ASA: 81 mg daily and Clopidogrel (Plavix): 75 mg daily: started Proceed with close observation for overt signs of fluid overload Proceed with strict intakes, outputs, and daily weights Proceed with close rate and rhythm surveillance Proceed with close hemodynamic surveillance Proceed with optimized blood pressure control Transfuse to sustain HGB level above 7.0 Sustain Magnesium level greater than 2.0 Sustain Potassium level greater than 4.0 Follow up renal function and electrolytes Management in telemetry Will proceed to follow from a cardiac perspective Further recommendations per clinical progression Cardiac monge: stable All available diagnostic labs, EKG's, and images were personally reviewed Plan of care discussed with and agreed upon by patient / primary RN Prognosis: Guarded A total of 75 minutes was spent reviewing the patient record, examining the patient, making a diagnostic and therapeutic plan, discussing this plan with medical personnel, following up on diagnostic studies and following the patient for clinical stability excluding any and all procedures. At least 50% of this time was spent in direct, [id number] contact. Thank you for allowing me to participate in this patient's care. Further recommendations will depend on patient's clinical course. Please do not hesitate to contact me if you have any questions or concerns. This medical document was created using electronic medical record system with MModal computerized dictation system. Although this document has been carefully reviewed, there may still be some phonetic and typographical errors. These areas are purely typographical due to the imperfection of the software programs, and do not reflect any compromise in the patient's medical care. Dietary Evaluation Review Comments: 1) Ensure enliuve 240ml BID 2) Monitor PO intake, lab values, weight trend, and I/O Expected Outcomes/Goals: To meet >75% estimated needs Fu 3-5 days Plan discussed with: Patient, Other (nurse) RODRIGUEZ LEBRON MD Feb 09, 2025 08:39
[2025-02-09] MEDS ORDERED: PERCOT PO (09:26)
[2025-02-09] MEDS ORDERED: CIPR-273 PO (09:29)
--- NOTE | 2025-02-09 09:33 | DVHDS2 ---
Discharge Summary Date of Admission Feb 04, 2025 at 13:16 Date of Discharge: Feb 09, 2025 Labs/Diagnostic Data: Laboratory Results Test 02/08/25 04:42 02/05/25 10:25 02/05/25 06:15 02/04/25 20:43 Urine Color Colorless (Yellow) Urine Clarity Ex.turbid (Clear) Urine pH 7.5 (5.0-9.0) Urine Specific [place] 1.020 (1.001-1.035) Urine Protein 1+ (Negative) Urine Ketones Negative (Negative) Urine Blood Trace /uL (Negative) Urine Nitrite 1+ (Negative) Urine Bilirubin Negative (Negative) Urine Urobilinogen Normal mg/dL (Negative) Urine Leukocyte Esterase 2+ /uL (Negative) Urine RBC 45 /hpf (0 - 4) Urine WBC Clumps Present /hpf (None Seen) Urine Microscopic WBC 1151 /HPF (0-5) Urine Squamous Epithelial Cells Few /hpf (<5) Urine Bacteria Few /hpf (None Seen) Urine Glucose Normal mg/dL (Normal) Prothrombin Time 11.3 sec (9.3-11.8) Prothrombin Time INR 1.07 (0.9-1.15) White Blood Count 7.4 10^3/uL (4.4-10.8) Red Blood Count 4.36 10^6/uL (4.0-5.20) Hemoglobin 12.9 g/dL (12.2-16.2) Hematocrit 37.8 % (36.0-46.0) Mean Corpuscular Volume 86.8 fL (80.0-100.0) Mean Corpuscular Hemoglobin 29.7 pg (28.0-32.0) Mean Corpuscular Hemoglobin Concent 34.2 g/dL (32.0-36.0) Red Cell Distribution Width 16.9 % (11.8-14.3) Platelet Count 398 10^3/uL (140-450) Mean Platelet Volume 7.7 fL (6.9-10.8) Neutrophils (%) (Auto) 64.2 % (37.0-80.0) Lymphocytes (%) (Auto) 21.5 % (10.0-50.0) Monocytes (%) (Auto) 10.5 % (0.0-12.0) Eosinophils (%) (Auto) 2.8 % (0.0-7.0) Basophils (%) (Auto) 1.0 % (0.0-2.0) Neutrophils # (Auto) 4.8 10 ^3/uL (1.6-8.6) Lymphocytes # (Auto) 1.6 10 ^3/uL (0.4-5.4) Monocytes # (Auto) 0.8 10 ^3/uL (0-1.3) Eosinophils # (Auto) 0.2 10 ^3/uL (0-0.8) Basophils # (Auto) 0.1 10 ^3/uL (0-0.2) Nucleated Red Blood Cells 0.0 % Sodium Level 142 mmol/L (136-145) Potassium Level 4.0 mmol/L (3.5-5.1) Chloride Level 107 mmol/L (98-107) Carbon Dioxide Level 26 mmol/L (20-31) Anion Gap 9 (5-15) Blood Urea Nitrogen 13 mg/dL (9-23) Creatinine 1.01 mg/dL (0.550-1.02) Glomerular Filtration Rate Calc 56 mL/min (>90) BUN/Creatinine Ratio 12.9 (10.0-20.0) Serum Glucose 119 mg/dL (74-106) Calcium Level 9.0 mg/dL (8.7-10.4) Total Bilirubin 0.4 mg/dL (0.2-1.0) Aspartate Amino Transferase (AST) 21 U/L (13-40) Alanine Aminotransferase (ALT) 9 U/L (7-40) Alkaline Phosphatase 80 U/L (46-116) Total Protein 6.1 g/dL (5.7-8.2) Albumin 3.9 g/dL (3.2-4.8) SARS-CoV-2 Antigen (Rapid) Negative (NEGATIVE) Test 02/04/25 10:53 Urine Transitional Epithelial Cells Few /hpf (<2) Urine Amorphous Crystals Mod /hpf (None Seen) Other Laboratory Tests 02/05/25 06:15 Brief Hx & Hospital Course: Diagnoses: Left hip fracture Chronic anemia Anxiety Asthma Coronary artery disease COPD History of CVA Hypertension Mixed hyperlipidemia Status post pacemaker Status post CABG UTI 79-year-old female was admitted for a fall and fracture of the left hip She was evaluated by Orthopedic surgery and was recommended to have surgery Because of the comorbidities she was hesitant about having surgery and asked for Cardiology consult from her senior svp Dr. Mercado who saw the patient and recommended that she can have surgery if she agrees to with the acceptable risks factors that she has however she is very hesitant to have the surgery and after several discussions with the orthopedic surgeon and with the cardiology team she decided against having surgery She would like to go [facility] and have physical therapy and made Pain Management there The patient can be discharged with home health today She will be given Percocet for p.r.n. for pain Resume the other home medications including aspirin and Plavix Follow up with Dr. Horton in 2 weeks as an outpatient Condition at Discharge: Stable Final Diagnosis/Problems List Left hip fracture Chronic anemia Anxiety Asthma Coronary artery disease COPD History of CVA Hypertension Mixed hyperlipidemia Status post pacemaker Status post CABG Discharge Disposition: Home with Health Services SNF Discharge Will this Physician continue t: No Discharge Instruct/Medications Diet: Consistent carbohydrate, Cardiac 2g Na,low cholest Activity: Light activity Follow Up/Referral: PCP KM Medications: Percocet prn Cipro 250 mg bid x 5 days Scheduled Ascorbic Acid (Vitamin C Tablet), 1 TAB PO BID, (Reported) Aspirin (Aspir-Low), 1 TAB PO DAILY, (Reported) Atorvastatin Calcium (Atorvastatin Calcium), 40 MG PO HS Cholecalciferol (Vitamin D3), 1 TAB PO BID, (Reported) Ciprofloxacin Hcl (Cipro), 250 MG PO BID Clopidogrel Bisulfate (Clopidogrel), 75 MG PO DAILY Duloxetine Hydrochloride (Duloxetine Hydrochloride), 30 MG PO DAILY Fluticasone-Salmeterol (Fluticasone Propionate/SA 250-50 Mcg/Dose), 1 PUFF INH BID, (Reported) Levofloxacin Hemihydrate (Levofloxacin), 750 MG PO DAILY Metoprolol Succinate (Metoprolol Succinate Er), 1 TAB PO DAILY Multiple Vitamin (Tab-A-Radha), 1 TAB PO DAILY, (Reported) Oxybutynin Chloride (Oxybutynin Chloride), 5 MG PO Q8HR Oxycodone W/ Acetaminophen (Percocet 5/325MG), 1 TAB PO QID Pantoprazole Sodium Sesquihydr (Pantoprazole Sodium), 1 TAB PO DAILY, (Reported) Phenazopyridine HCl (Eq Urinary Pain Relief Ma), 99.5 MG PO TID Ranolazine (Ranolazine ER), 500 MG PO BID Spironolactone (Aldactone), 25 MG PO DAILY Scheduled PRN Albuterol Sulfate (Albuterol Sulfate Hfa), 2 PUFF INH Q4HPRN PRN for dyspnea, (Reported) Ipratropium-Albuterol (Ipratropium [place]/Albut), 1 VIAL NEB Q6HPRN PRN for SHORTNESS OF BREATH, (Reported) Polyethylene Glycol 3350 (Miralax), 17 GM PO DAILY PRN for FOR CONSTIPATION, (Reported) Discharge Statement: "Patient was advised to return to the ER or call 911 if any headaches, dizziness, shortness of breath, chest pain, abdominal pain, bleeding, fevers, or worsening of medical condition. Patient was counseled about treatment plan, medications, possible side effects, patientverbalized understanding. All questions were answered to the best of my ability. This discharge took greater then 30 minutes in planning, reviewing documentation, counseling the patient, and discussing with other team members." ASSESSMENT ASSESSMENT Assessment Left hip fracture Chronic anemia Anxiety Asthma Coronary artery disease COPD History of CVA Hypertension Mixed hyperlipidemia Status post pacemaker Status post CABG Date of Service: Feb 09, 2025 Billing Provider: YENNY FRAIRE MD Common Visit Codes: 02946-TNR/OBS DISCH DAY >30min YENNY FRAIRE MD Feb 09, 2025 09:33
[2025-02-09] MEDS: OXYCODONE W/ ACETAMINOPHEN 5/325MG TABLET PO PRN (11:17)
== END 2025-02-09 18:00 | disposition home health service (06) | DRG 536 ==
LOC: EDBD 06:06 → ER 06:06 → EDUNIT# 06:06 → OVERFLOW 13:16 → CENTRAL 23:44
PROVIDERS: ADMIT Internal Medicine Geriatric Medicine; ATTEND Internal Medicine Geriatric Medicine
PROC: 05HA33Z Insertion of Infusion Device into Left Brachial Vein, Percutaneous Approach (ICD-10-PCS; principal; 2025-02-04)
PROC: B54NZZA Ultrasonography of Left Upper Extremity Veins, Guidance (ICD-10-PCS; 2025-02-04)
DX: S72.092A Other fracture of head and neck of left femur, initial encounter for closed fracture (principal); N30.00 Acute cystitis without hematuria; Z20.822 Contact with and (suspected) exposure to COVID-19; Z66 Do not resuscitate; F41.9 Anxiety disorder, unspecified; E78.2 Mixed hyperlipidemia; D64.9 Anemia, unspecified; I25.10 Atherosclerotic heart disease of native coronary artery without angina pectoris; G20.C Parkinsonism, unspecified; I11.0 Hypertensive heart disease with heart failure; J44.89 Other specified chronic obstructive pulmonary disease; Z86.73 Personal history of transient ischemic attack (TIA), and cerebral infarction without residual deficits; Z88.2 Allergy status to sulfonamides; Z79.82 Long term (current) use of aspirin; Z79.899 Other long term (current) drug therapy; Z99.3 Dependence on wheelchair; Z95.810 Presence of automatic (implantable) cardiac defibrillator; Z95.1 Presence of aortocoronary bypass graft; Z90.710 Acquired absence of both cervix and uterus; Z90.49 Acquired absence of other specified parts of digestive tract; Z88.5 Allergy status to narcotic agent; Z83.3 Family history of diabetes mellitus; Z82.49 Family history of ischemic heart disease and other diseases of the circulatory system; Z82.3 Family history of stroke; Z95.5 Presence of coronary angioplasty implant and graft; Z87.891 Personal history of nicotine dependence; W18.39XA Other fall on same level, initial encounter; Y93.89 Activity, other specified; Y92.89 Other specified places as the place of occurrence of the external cause; Y99.8 Other external cause status
CPT/HCPCS: 36415; 71045; 73502; 73700; 80048; 80053; 81001; 85025; 85610; 86850; 86900; 86901; 87426; 93005; 94640; 96374; 96375; 97110; 97116; 97163; 97530; G0378; J2405

== ENCOUNTER 2025-02-10 19:36 | Inpatient (IN) | payer OTHER, MEDICAID ==
[~2025-02-10] VITALS: Ht 170.2 cm; Wt 71.7 kg
[~2025-02-10 19:36] MED LIST changes: -ACET-1882 PO; +CIPR-273 PO; -LEVO500T91 PO
--- NOTE | 2025-02-10 20:08 | ED.PDOC ---
Musculoskeletal HPI Comments This is an 79 year-old female who presents to the ED via EMS with a chief complaint of L hip pain as of today S/P fall today. Patient reports fracturing her L hip X2 weeks ago. Patient fell onto the L hip minutes ago while walking to the restroom. Patient states she typically takes Percocets for the pain. Patient has no further complaints at this time and otherwise denies LOC, N/V/D, head trauma, dizziness, or headache. During previous admission She was evaluated by Orthopedic surgery and was recommended to have surgery Because of the comorbidities she was hesitant about having surgery and asked for Cardiology consult from her skin peeling machine operator Dr. Mercado who saw the patient and recommended that she can have surgery if she agrees to with the acceptable risks factors that she has however she is very hesitant to have the surgery and after several discussions with the orthopedic surgeon and with the cardiology team she decided against having surgery REVIEW OF SYSTEMS: General: No fever, no chills, no fatigue HEENT: No sore throat, no earache, no congestion, no neck pain. Cardiac: No chest pain. No palpitations. Lungs: No shortness of breath, no cough. GI: No abdominal pain. No nausea. No vomiting. no diarrhea, no constipation : No flank pain. No dysuria, frequency, or urgency. Musculoskeletal: Positive joint pain. Positive joint swelling, no extremity edema. Skin: No rash, no itching. Neuro: No headache, dizziness, or weakness PHYSICAL EXAM: General: Awake, alert and oriented. No acute distress. Skin: Skin in warm, dry and intact. Appropriate color for ethnicity. HEENT: The head is normocephalic and atraumatic. Conjunctivae are clear without exudates or hemorrhage. Sclera is non-icteric. EOM are intact. No signs of nystagmus. Eyelids are normal in appearance without swelling or lesions. Oral mucosa is pink and moist Neck: The neck is supple with painful range of motion. No JVD. Cardiac: Heart rate and rhythm are normal. No murmurs, gallops, or rubs are auscultated. Respiratory: No signs of respiratory distress. Lung sounds are clear in all lobes bilaterally without rales, rhonchi, or wheezes. Abdominal: No abdominal tenderness. Abdomen is soft, without distention, guarding or rigidity. Bowel sounds are present and normoactive in all four quadrants. Extremities: Decreased ROM of the L hip with L hip tenderness. Neurological: The patient is awake, alert and oriented to person, place, and time with normal speech. Speech is clear. There is no facial asymmetry. Psychiatric: Appropriate mood and affect. Good judgement and insight. 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 Notes, Medications, Allergies Allergies: Coded Allergies: Ceftriaxone (Verified Allergy, Intermediate, generalized rash, 11/08/22) [employer] Hydrocodone (Verified Allergy, Unknown, rash, 05/18/23) tylenol is okay per patient Home Meds Active Scripts Ciprofloxacin Hcl (Cipro) 250 Mg Tab, 250 MG PO BID for 5 Days, #10 TAB Prov:YENNY FRAIRE MD 02/09/25 Oxycodone W/ Acetaminophen (Percocet 5/325MG) 1 Tab Tb, 1 TAB PO QID PRN, #20 TAB Prov:YENNY FRAIRE MD 02/09/25 Levofloxacin Hemihydrate (LEVOFLOXACIN) 750 Mg Tab, 750 MG PO DAILY for 5 Days, #5 TAB Prov:PHILL LEAL RESDIENT 01/17/25 Oxycodone W/ Acetaminophen (Percocet 5/325MG) 1 Tab Tb, 1 TAB PO QID, #30 TAB Prov:JANE VEGA MD 09/29/24 Phenazopyridine HCl (Eq Urinary Pain Relief Ma) 99.5 Mg Tab, 99.5 MG PO TID for 10 Days, #30 TAB Prov:PHILL LEAL RESDIENT 09/23/24 Metoprolol Succinate (Metoprolol Succinate Er) 25 Mg Tab, 1 TAB PO DAILY for 30 Days, #30 TAB 5 Refills Prov:AXEL CARABALLO RESIDENT 09/06/24 Spironolactone (Aldactone) 25 Mg Tab, 25 MG PO DAILY for 30 Days, #30 TAB Prov:BHARAT MICHELLE RESIDENT 07/22/24 Oxybutynin Chloride (Oxybutynin Chloride) 5 Mg Tab, 5 MG PO Q8HR for 30 Days, #90 TAB Prov:BHARAT MICHELLE RESIDENT 07/22/24 Atorvastatin Calcium (ATORVASTATIN CALCIUM) 20 Mg Tab, 40 MG PO HS for 30 Days, #60 TAB Prov:BHARAT MICHELLE RESIDENT 07/22/24 Duloxetine Hydrochloride (Duloxetine Hydrochloride) 30 Mg Cap, 30 MG PO DAILY for 30 Days, #30 CAP Prov:WINSOME GOMEZ MD 04/29/24 Clopidogrel Bisulfate (CLOPIDOGREL) 75 Mg Tab, 75 MG PO DAILY for 30 Days, #30 TAB 5 Refills Prov:YENNY FRAIRE MD 11/26/23 Ranolazine (Ranolazine ER) 500 Mg Tab, 500 MG PO BID for 30 Days, #60 TAB 2 Refills Prov:MAGAN RUSS RESIDENT 09/16/23 Reported Medications Polyethylene Glycol 3350 (Miralax) 17 Gm Pow, 17 GM PO DAILY PRN for FOR CONSTIPATION for 30 Days, #30 01/28/24 Ipratropium-Albuterol (Ipratropium Latta/Albut) 1 Yuli Yuli, 1 VIAL NEB Q6HPRN PRN for SHORTNESS OF BREATH for 13 Days, #180 09/05/23 Fluticasone-Salmeterol (Fluticasone Propionate/SA 250-50 Mcg/Dose) 1 Aer Aer, 1 PUFF INH BID for 30 Days, #60 09/05/23 Albuterol Sulfate (Albuterol Sulfate Hfa) 108 Mcg/Act Aer, 2 PUFF INH Q4HPRN PRN for dyspnea for 17 Days, #18 09/05/23 Cholecalciferol (VITAMIN D3) 2,000 Unit Tab, 1 TAB PO BID for 30 Days, #60 08/28/23 Multiple Vitamin (Tab-A-Radha) Tab, 1 TAB PO DAILY for 30 Days, #30 08/28/23 Aspirin (Aspir-Low) 81 Mg Tab, 1 TAB PO DAILY for 30 Days, #30 08/28/23 Ascorbic Acid (VITAMIN C TABLET) 500 Mg Tb, 1 TAB PO BID for 30 Days, #60 05/18/23 Pantoprazole Sodium Sesquihydr (Pantoprazole Sodium) 40 Mg Tab, 1 TAB PO DAILY 05/18/23 Information Source: Patient, Emergency Med Personnel Mode of Arrival: EMS Location: Left Extremity Location: Hip Timing: Weeks Prehospital treatment: None Severity: Moderate Bear Weight: Limited Pain: Moderate Circumstances: Fall Onset of Symptoms: After Trauma Symptoms: Pain History of: Hip Fracture Associated signs and symptoms: Hip pain Past Medical History PAST MEDICAL HISTORY: Anemia, Anxiety, Asthma, CAD, CHF, CKF, COPD, CVA, Depression, GERD, Gout, High Lipids, HTN, Kidney Stones, VA, UTI'S Surgical History: Appendectomy, CABG, Hysterectomy, Pacemaker, PTCA, 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 RADIOLOGIST History: Ovarian Cysts Family History Family History: Reviewed,noncontributory to illness, Unknown Social History Smoker: Non-Smoker Alcohol: Denies ETOH Use Drugs: Denies Drug Use Lives In: Assisted Care Was a procedure done? Was a procedure done?: No Differential Diagnosis EXT Differential Diagnosis: Fracture, Sprain, Dislocation X-Ray, Labs, Meds, VS Vital Signs Date Time Temp Pulse Resp B/P (MAP) Pulse Ox O2 Delivery O2 Flow Rate FiO2 02/10/25 23:03 72 18 113/64 (80) 97 02/10/25 23:02 72 18 113/64 02/10/25 19:40 98.2 82 18 122/72 97 98.2 Lab Test 02/10/25 21:07 Range/Units White Blood Count 10.4 # 4.4-10.8 10^3/uL Red Blood Count 5.42 H 4.0-5.20 10^6/uL Hemoglobin 16.2 # 12.2-16.2 g/dL Hematocrit 47.1 #H 36.0-46.0 % Mean Corpuscular Volume 86.9 80.0-100.0 fL Mean Corpuscular Hemoglobin 29.8 28.0-32.0 pg Mean Corpuscular Hemoglobin Concent 34.3 32.0-36.0 g/dL Red Cell Distribution Width 16.6 H 11.8-14.3 % Platelet Count 462 H 140-450 10^3/uL Mean Platelet Volume 8.1 6.9-10.8 fL Neutrophils (%) (Auto) 71.2 37.0-80.0 % Lymphocytes (%) (Auto) 13.6 10.0-50.0 % Monocytes (%) (Auto) 9.3 0.0-12.0 % Eosinophils (%) (Auto) 4.7 0.0-7.0 % Basophils (%) (Auto) 1.2 0.0-2.0 % Neutrophils # (Auto) 7.4 1.6-8.6 10 ^3/uL Lymphocytes # (Auto) 1.4 0.4-5.4 10 ^3/uL Monocytes # (Auto) 1.0 0-1.3 10 ^3/uL Eosinophils # (Auto) 0.5 0-0.8 10 ^3/uL Basophils # (Auto) 0.1 0-0.2 10 ^3/uL Nucleated Red Blood Cells 0.1 % Sodium Level 140 136-145 mmol/L Potassium Level 4.8 3.5-5.1 mmol/L Chloride Level 105 98-107 mmol/L Carbon Dioxide Level 24 20-31 mmol/L Anion Gap 11 5-15 Blood Urea Nitrogen 27 H 9-23 mg/dL Creatinine 1.04 H 0.550-1.02 mg/dL Glomerular Filtration Rate Calc 54 >90 mL/min BUN/Creatinine Ratio 26.0 H 10.0-20.0 Serum Glucose 123 H 74-106 mg/dL Calcium Level 10.3 8.7-10.4 mg/dL Current Medications Medications (Trade) Dose Ordered Sig/Asha Route Start Time Stop Time Status Last Admin Oxycodone/ Acetaminophen (Percocet 5/ 325MG Tablet) 1 tab ONCE ONCE PO 02/10/25 20:15 02/10/25 20:16 DC 02/10/25 20:58 Ondansetron HCl (Zofran) 4 mg ONCE ONCE IV 02/10/25 23:00 02/10/25 23:01 DC 02/10/25 23:03 Morphine Sulfate 2 mg ONCE ONCE IV 02/10/25 23:00 02/10/25 23:01 DC 02/10/25 23:02 [place] [id number] Ph: [phone] DIAGNOSTIC IMAGING Diagnostic Imaging Report : [id number] Signed PATIENT: MONICA JAMES ACCT: [id number] UNIT: [id number] : 1945 LOC: ER ROOM / BED: / AGE / SEX: 79 / F ADM STATUS: REG ER SERVICE 43 ORDERING PHYSICIAN: MIRIAN SANON DO PROCEDURE(s): ABPL - CT AB PEL WO CON-NO ORAL OR IV REASON: hip pain ORDER NUMBER(s): [id number], ACCESSION NUMBER(s): [id number] Exam: CT CT AB PEL WO CON-NO ORAL OR IV History: hip pain Comparison Study: CT CT AB PEL WO CON-NO ORAL OR IV on DOS: 01/07/25, CT CT AB PEL WO CON-NO ORAL OR IV on DOS: 12/19/24, CT CT AB PEL WO CON-NO ORAL OR IV on DOS: 11/09/24 TECHNIQUE: Multidetector CT of the abdomen was performed from lung bases to pubic symphysis. Imaging was performed without IV contrast. Axial, coronal and sagittal multiplanar reformats were obtained from the axial data set by the technologist. Radiation Dose Information: CT Dose: CTDI volume is 8.24 mGy. Dose-length product is 425.63 mGy*cm FINDINGS: Evaluation of solid organs is limited due to lack of intravenous contrast use. Findings: Lung Bases: No acute or significant lung base finding. Normal heart size. No pleural or pericardial effusion. Coronary artery calcifications. Liver: The liver is normal in size. No focal lesions. Gallbladder and Biliary Tree: Unremarkable Spleen: Unremarkable Pancreas: The pancreas is grossly normal in appearance. Adrenal Glands: Unremarkable Kidneys: Punctate nonobstructing calculus lower pole left kidney. Cortical scarring left kidney. There is a 4-5 mm calcification near the right ureterovesical junction Bladder: Grossly unremarkable for degree of distention. Bowel: The stomach is grossly normal in appearance. Small bowel and colon are normal in caliber and distribution. The appendix is not visualized; however, no secondary findings of acute appendicitis identified. Ascites: Absent Lymphadenopathy: No mesenteric, retroperitoneal or periportal lymphadenopathy. Abdominal Wall and Mesentery: Unremarkable. Vasculature: The visualized abdominal aorta is normal in size and caliber. Evaluation of abdominal and pelvic vessels is limited due to lack of intravenous contrast. Pelvic Organs: Unremarkable Musculoskeletal: No aggressive focal bony lesions, acute fractures or dislocation. Bilateral laminectomy from L3 through S1. There is bony fusion of the facets bilaterally from L3 through S1. Mild degenerative arthritic changes bilaterally. Soft tissues: Bilateral calcified injection granulomas. IMPRESSION: 1. Arthritic changes of both hips right slightly worse than left. 2. No fractures of the proximal femurs. 3. 4-5 mm calculus in the distal right ureter near the ureterovesical junction. (Series 2 images 75-78). 4. Bilateral laminectomy from L3 through S1. 5. Bony fusion of the facets bilaterally from L3 through S1. Radiation optimization: All CT scans at this facility use at least one of these dose optimization techniques: automated exposure control mA and/or kV adjustment per patient size (includes targeted exams where dose is matched to clinical indication) or iterative reconstruction. Images Reviewed?: Images reviewed and evaluated by me Time of 1ST Reevaluation: 20:23 Reevaluation 1ST: Unchanged Patient Education/Counseling: Other (Need for admission) Family Education/Counseling: No Family Present Medical Screening: No EMC Exist At This Time Departure 1 Departure Time of Disposition: 21:56 Impression: Primary Impression: Left hip pain Additional Impression: Fracture of left hip Disposition: ADMITTED INPATIENT Condition: Stable Comments Patient admitted to hospitalist service for further treatment, evaluation and monitoring. Critical Care Note Critical Care Time?: No Stability Stability form required: No Heart Score Heart Score: Heart Score Response (Comments) Value History N/A 0 EKG N/A 0 Age N/A 0 Risk Factors N/A 0 Troponin N/A 0 Total 0 I personally scribed for TAMIKO HASSAN MD ([email or web address]) on 02/10/25 at 20:08. Electronically submitted by Lisa Bey ([email or web address]). I personally scribed for TAMIKO HASSAN MD ([email or web address]) on 02/10/25 at 20:58. Electronically submitted by Lisa Bey [email or web address]). TAMIKO HASSAN MD Feb 10, 2025 20:08
--- NOTE | 2025-02-10 20:55 | DVH ---
Exam: CT CT AB PEL WO CON-NO ORAL OR IV History: hip pain Comparison Study: CT CT AB PEL WO CON-NO ORAL OR IV on DOS: 01/07/25, CT CT AB PEL WO CON-NO ORAL OR I V on DOS: 12/19/24, CT CT AB PEL WO CON-NO ORAL OR IV on DOS: 11/09/24 TECHNIQUE: Multidetector CT of the abdomen was performed from lung bases to pubic symphysis. Imaging was performed without IV contrast. Axial, coronal and sagittal multiplanar reformats were obtained fr om the axial data set by the technologist. Radiation Dose Information: CT Dose: CTDI volume is 8.24 mGy. Dose-length product is 425.63 mGy*cm FINDINGS: Evaluation of solid organs is limited due to lack of intravenous contrast use. Findings: Lung Bases: No acute or significant lung base finding. Normal heart size. No pleural or pericardial effusion. Coronary artery calcifications. Liver: The liver is normal in size. No focal lesions. Gallbladder and Biliary Tree: Unremarkable Spleen: Unremarkable Pancreas: The pancreas is grossly normal in appearance. Adrenal Glands: Unremarkable Kidneys: Punctate nonobstructing calculus lower pole left kidney. Cortical scarring left kidney. Ther e is a 4-5 mm calcification near the right ureterovesical junction Bladder: Grossly unremarkable for degree of distention. Bowel: The stomach is grossly normal in appearance. Small bowel and colon are normal in caliber and d istribution. The appendix is not visualized; however, no secondary findings of acute appendicitis id entified. Ascites: Absent Lymphadenopathy: No mesenteric, retroperitoneal or periportal lymphadenopathy. Abdominal Wall and Mesentery: Unremarkable. Vasculature: The visualized abdominal aorta is normal in size and caliber. Evaluation of abdominal a nd pelvic vessels is limited due to lack of intravenous contrast. Pelvic Organs: Unremarkable Musculoskeletal: No aggressive focal bony lesions, acute fractures or dislocation. Bilateral laminect william from L3 through S1. There is bony fusion of the facets bilaterally from L3 through S1. Mild degenerative arthritic changes bilaterally. Soft tissues: Bilateral calcified injection granulomas. IMPRESSION: 1. Arthritic changes of both hips right slightly worse than left. 2. No fractures of the proximal femurs. 3. 4-5 mm calculus in the distal right ureter near the ureterovesical junction. (Series 2 images [id number] 8). 4. Bilateral laminectomy from L3 through S1. 5. Bony fusion of the facets bilaterally from L3 through S1. Radiation optimization: All CT scans at this facility use at least one of these dose optimization te chniques: automated exposure control mA and/or kV adjustment per patient size (includes targeted exa ms where dose is matched to clinical indication) or iterative reconstruction.
[2025-02-10] MEDS: OXYCODONE W/ ACETAMINOPHEN 5/325MG TABLET PO ONE (20:58)
[2025-02-10 21:23] LABS: Hematocrit 47.1 % (36.0-46.0); Hemoglobin 16.2 g/dL (12.2-16.2); Mean Corpuscular Hemoglobin 29.8 pg (28.0-32.0); Mean Corpuscular Volume 86.9 fL (80.0-100.0); Nucleated Red Blood Cells % 0.1 %
[2025-02-10 21:30] LABS: Chloride 105 mmol/L (98-107); Potassium 4.8 mmol/L (3.5-5.1); Sodium 140 mmol/L (136-145)
[2025-02-10 21:31] LABS: Anion Gap 11 (5-15); Carbon Dioxide 24 mmol/L (20-31)
[2025-02-10 21:32] LABS: Calcium 10.3 mg/dL (8.7-10.4)
[2025-02-10 21:36] LABS: BUN/Creatinine Ratio 26.0 (10.0-20.0)
[2025-02-10 21:38] LABS: Blood Urea Nitrogen 27 mg/dL (9-23); Glucose 123 mg/dL (74-106)
[2025-02-10] MEDS: MORPHINE SULFATE INJ 2 MG/ml SYRG IV ONE (23:02)
[2025-02-10] MEDS: ONDANSETRON HCL 4 MG/2 ML VIAL IV ONE (23:03)
[2025-02-10] MEDS ORDERED: MORPHINE SULFATE INJ 2 MG/ml SYRG IV PRN (23:30)
[2025-02-10] MEDS ORDERED: NITROGLYCERIN 0.4 MG SL TAB SL PRN (23:30)
[2025-02-11] VITALS (13 sets, daily range): BP systolic 108–128; BP diastolic 59–76; PULSE 68–102; RESP 16–20; TEMP 96.4–98.2; O2SAT 93–100
[2025-02-11 00:28] LABS: INR 1.07 (0.9-1.15); Partial Thromboplastin Time 32.0 SEC (24.5-34.5); Prothrombin Time 11.3 sec (9.3-11.8)
[2025-02-11] MEDS: MORPHINE SULFATE INJ 2 MG/ml SYRG IV PRN (03:45)
[2025-02-11] MEDS: ONDANSETRON HCL 4 MG/2 ML VIAL IV PRN (03:45)
--- NOTE | 2025-02-11 03:52 | DVHHP2 ---
History of Present Illness Reason for Visit: Left hip pain History of Present Illness 79-year-old female presents for evaluation of left hip pain. Patient reports her left leg giving out while using her walker and falling onto her left side. She complaints of worsening left hip pain. Of note, patient was admitted a week ago and evaluated for left hip surgery due to fracture. Patient opted to be discharged home and be seen as an outpatient. Today she returns and wants to be evaluated again for surgery. Past Medical History Asthma, CAD, CHF, chronic kidney disease, hypertension, CVA, COPD Past Surgical History Appendectomy, CABG, hysterectomy, pacemaker PTCA, tonsillectomy Family History Noncontributory Smoke: No ALCOHOL: none Drugs: None Lives: with Family Review of Systems Review of Systems Review of systems are currently negative otherwise addressed in HPI. Allergies: Coded Allergies: Ceftriaxone (Verified Allergy, Intermediate, generalized rash, 11/08/22) SECTION [employer] WARDENCARLENE MEJIA Hydrocodone (Verified Allergy, Unknown, rash, 05/18/23) tylenol is okay per patient Medications Current Medications Medications Dose Ordered Sig/Asha Route Start Time Stop Time Status Last Admin Dose Admin Albuterol 2.5 mg Q6HPRN PRN NEB 02/10/25 23:30 Ranolazine 500 mg BID PO 02/11/25 10:00 Atorvastatin Calcium 40 mg HS PO 02/11/25 22:00 Spironolactone 25 mg DAILY PO 02/11/25 10:00 Clopidogrel Bisulfate 75 mg DAILY PO 02/11/25 10:00 Ondansetron HCl 4 mg Q4HP PRN IV 02/10/25 23:30 02/11/25 03:45 4 MG Acetaminophen 650 mg Q6HP PRN PO 02/10/25 23:30 Morphine Sulfate 2 mg Q4HPRN PRN IV 02/10/25 23:30 02/11/25 03:45 2 MG Nitroglycerin 0.4 mg Q5MINP PRN SL 02/10/25 23:30 Morphine Sulfate 2 mg Q30M PRN IV 02/10/25 23:30 Exam Vital Signs Vital Signs Date Time Temp Pulse Resp B/P (MAP) Pulse Ox O2 Delivery O2 Flow Rate FiO2 02/11/25 03:45 77 18 117/61 02/11/25 02:47 98.5 94 98.5 02/11/25 02:15 Nasal Cannula* 1 24 Exam Gen: 79-year-old female in mild distress Skin: Warm, dry, normal color and texture, no rash. HEENT: Normocephalic atraumatic, mucous membranes moist and pink. Neck: Cervical and supraclavicular nodes normal without enlargement, trachea is midline, thyroid gland is normal without masses. Pulmonary: Clear to auscultation and percussion bilaterally. Cardiac: Regular rate and rhythm. No murmur Abdomen: Soft, nontender, nondistended, bowel sounds present all 4 quadrants, no guarding, no rigidity, no organomegaly. Extremities: No cyanosis, clubbing, no edema Neuro: Cranial nerves II through XII grossly intact, normal affect and speech, no focal motor deficits. Labs/Xrays ORDERING PHYSICIAN: MIRIAN SANON DO PROCEDURE(s): ABPL - CT AB PEL WO CON-NO ORAL OR IV REASON: hip pain ORDER NUMBER(s): [id number], ACCESSION NUMBER(s): [id number] Exam: CT CT AB PEL WO CON-NO ORAL OR IV History: hip pain Comparison Study: CT CT AB PEL WO CON-NO ORAL OR IV on DOS: 01/07/25, CT CT AB PEL WO CON-NO ORAL OR IV on DOS: 12/19/24, CT CT AB PEL WO CON-NO ORAL OR IV on DOS: 11/09/24 TECHNIQUE: Multidetector CT of the abdomen was performed from lung bases to pubic symphysis. Imaging was performed without IV contrast. Axial, coronal and sagittal multiplanar reformats were obtained from the axial data set by the technologist. Radiation Dose Information: CT Dose: CTDI volume is 8.24 mGy. Dose-length product is 425.63 mGy*cm FINDINGS: Evaluation of solid organs is limited due to lack of intravenous contrast use. Findings: Lung Bases: No acute or significant lung base finding. Normal heart size. No pleural or pericardial effusion. Coronary artery calcifications. Liver: The liver is normal in size. No focal lesions. Gallbladder and Biliary Tree: Unremarkable Spleen: Unremarkable Pancreas: The pancreas is grossly normal in appearance. Adrenal Glands: Unremarkable Kidneys: Punctate nonobstructing calculus lower pole left kidney. Cortical scarring left kidney. There is a 4-5 mm calcification near the right ureterovesical junction Bladder: Grossly unremarkable for degree of distention. Bowel: The stomach is grossly normal in appearance. Small bowel and colon are normal in caliber and distribution. The appendix is not visualized; however, no secondary findings of acute appendicitis identified. Ascites: Absent Lymphadenopathy: No mesenteric, retroperitoneal or periportal lymphadenopathy. Abdominal Wall and Mesentery: Unremarkable. Vasculature: The visualized abdominal aorta is normal in size and caliber. Evaluation of abdominal and pelvic vessels is limited due to lack of intravenous contrast. Pelvic Organs: Unremarkable Musculoskeletal: No aggressive focal bony lesions, acute fractures or dislocation. Bilateral laminectomy from L3 through S1. There is bony fusion of the facets bilaterally from L3 through S1. Mild degenerative arthritic changes bilaterally. Soft tissues: Bilateral calcified injection granulomas. IMPRESSION: 1. Arthritic changes of both hips right slightly worse than left. 2. No fractures of the proximal femurs. 3. 4-5 mm calculus in the distal right ureter near the ureterovesical junction. (Series 2 images 75-78). 4. Bilateral laminectomy from L3 through S1. 5. Bony fusion of the facets bilaterally from L3 through S1. Radiation optimization: All CT scans at this facility use at least one of these dose optimization techniques: automated exposure control mA and/or kV adjustment per patient size (includes targeted exams where dose is matched to clinical indication) or iterative reconstruction. RING PHYSICIAN: ROSE MARY BEY DNP [facility]ED[facility] CONTRAST REASON: eval for left hip fx ORDER NUMBER(s): [id number], ACCESSION NUMBER(s): [id number] EXAM: CT CT L HIP WITH OUT CONTRAST INDICATION: eval for left hip fx TECHNIQUE: Axial images of left hip without contrast have been obtained along with coronal and sagittal reformatted images. All CT scans at this facility use dose modulation, iterative reconstruction, and/or weight based dosing when ap propriate to reduce radiation dose to as low as reasonably achievable. COMPARISON: XY L HIP COMPLETE XRAY on DOS: 02/04/25 FINDINGS: BONES: Nondisplaced fracture of the left greater trochanter. Fracture extension minimally into the left intertrochanteric region. No fracture involvement of the lesser trochanter no extension to the transcervical region. MUSCLES: No abnormal attenuation. JOINT SPACES: No joint effusion. TENDONS/LIGAMENTS: Intact. OTHER: Postsurgical changes in the region of the sigmoid colon fat containing left inguinal hernia IMPRESSION: 1. Nondisplaced fracture of the left greater trochanter. Fracture extension minimally into the left intertrochanteric region. No fracture involvement of the lesser trochanter no extension to the transcervical region. ATED BY: ROGERIO DUMONT MD DICTATED DATE/TIME: 02/04/25 1419 SIGNED BY: ROGERIO DUMONT MD Labs Test 02/10/25 23:58 02/10/25 21:07 Range/Units Prothrombin Time 11.3 9.3-11.8 sec Prothrombin Time INR 1.07 0.9-1.15 Activated Partial Thromboplast Time 32.0 24.5-34.5 SEC White Blood Count 10.4 # 4.4-10.8 10^3/uL Red Blood Count 5.42 H 4.0-5.20 10^6/uL Hemoglobin 16.2 # 12.2-16.2 g/dL Hematocrit 47.1 #H 36.0-46.0 % Mean Corpuscular Volume 86.9 80.0-100.0 fL Mean Corpuscular Hemoglobin 29.8 28.0-32.0 pg Mean Corpuscular Hemoglobin Concent 34.3 32.0-36.0 g/dL Red Cell Distribution Width 16.6 H 11.8-14.3 % Platelet Count 462 H 140-450 10^3/uL Mean Platelet Volume 8.1 6.9-10.8 fL Neutrophils (%) (Auto) 71.2 37.0-80.0 % Lymphocytes (%) (Auto) 13.6 10.0-50.0 % Monocytes (%) (Auto) 9.3 0.0-12.0 % Eosinophils (%) (Auto) 4.7 0.0-7.0 % Basophils (%) (Auto) 1.2 0.0-2.0 % Neutrophils # (Auto) 7.4 1.6-8.6 10 ^3/uL Lymphocytes # (Auto) 1.4 0.4-5.4 10 ^3/uL Monocytes # (Auto) 1.0 0-1.3 10 ^3/uL Eosinophils # (Auto) 0.5 0-0.8 10 ^3/uL Basophils # (Auto) 0.1 0-0.2 10 ^3/uL Nucleated Red Blood Cells 0.1 % Sodium Level 140 136-145 mmol/L Potassium Level 4.8 3.5-5.1 mmol/L Chloride Level 105 98-107 mmol/L Carbon Dioxide Level 24 20-31 mmol/L Anion Gap 11 5-15 Blood Urea Nitrogen 27 H 9-23 mg/dL Creatinine 1.04 H 0.550-1.02 mg/dL Glomerular Filtration Rate Calc 54 >90 mL/min BUN/Creatinine Ratio 26.0 H 10.0-20.0 Serum Glucose 123 H 74-106 mg/dL Calcium Level 10.3 8.7-10.4 mg/dL SEPSIS Sepsis Screen Date sepsis recognized/suspect: Feb 10, 2025 Time Sepsis recognized/suspect: 1939 Recent Procedure: No On Antibiotic Therapy: No Respiratory Rate >20: No Heart Rate >90: No Temp<36 C (96.8 F) or >38.3 C: No SBP <90 or MAP <65 mmHG: No New Acute Mental Status Change: No Is the patient on CPAP, BIPAP,: No Physician Orders Albuterol Medneb (Ventolin Medneb) (02/10/25 23:30) Ranolazine (Ranexa Er) (02/11/25 10:00) Atorvastatin (Lipitor) (02/11/25 22:00) Spironolactone (Aldactone) (02/11/25 10:00) Clopidogrel Bisulfate (Plavix) (02/11/25 10:00) *Consult Dr. Rudolph Dumont (02/10/25 23:25) Basic Metabolic Panel (02/11/25 04:00) Admit (02/10/25 23:25) Ondansetron Hcl (Zofran) (02/10/25 23:30) Complete Blood Count (02/11/25 04:00) Cardiac Diet-2gna,Lofat,Lochol (02/11/25 Breakfast) Condition: Stable (02/10/25 23:25) Acetaminophen Tablet (Tylenol Tablet) (02/10/25 23:30) Bedrest With Bathroom Privileg (02/10/25 23:25) Morphine Sulfate Injection (02/10/25 23:30) Nitroglycerin Sublingual (Ntrostat Subli (02/10/25 23:30) Morphine Sulfate Injection (02/10/25 23:30) Stat Ekg For Chest Pain (02/10/25 23:25) Notify Of Changes From Base (02/10/25 23:25) Knitter Helper For 24 Hours (02/10/25 23:25) Emergency Dysrhythmia Protocol (02/10/25 23:25) Rhythm Strips Once Every Shift (02/10/25 23:25) Oxygen By Nasal Cannula (02/10/25 23:25) Electrocardigram (02/11/25 01:48) Vital Signs Date Time Temp Pulse Resp B/P (MAP) Pulse Ox O2 Delivery O2 Flow Rate FiO2 02/11/25 03:45 77 18 117/61 02/11/25 02:47 98.5 72 18 110/65 (80) 94 98.5 02/11/25 02:15 98 Nasal Cannula* 1 24 02/11/25 02:15 98 Nasal Cannula 0.5 02/11/25 02:15 98.2 102 20 113/64 98 0.5 22 98.2 02/11/25 01:37 74 02/10/25 23:32 74 18 106/66 02/10/25 23:03 72 18 113/64 (80) 97 02/10/25 23:02 72 18 113/64 Laboratory Tests Test 02/10/25 21:07 White Blood Count 10.4 10^3/uL (4.4-10.8) # Medications Medications Dose Ordered Sig/Asha Route Start Time Stop Time Status Last Admin Dose Admin Morphine Sulfate 2 mg ONCE ONCE IV 02/10/25 23:00 02/10/25 23:01 DC 02/10/25 23:02 2 MG Morphine Sulfate 2 mg Q4HPRN PRN IV 02/10/25 23:30 02/11/25 03:45 2 MG Ondansetron HCl 4 mg ONCE ONCE IV 02/10/25 23:00 02/10/25 23:01 DC 02/10/25 23:03 4 MG Ondansetron HCl 4 mg Q4HP PRN IV 02/10/25 23:30 02/11/25 03:45 4 MG Oxycodone/ Acetaminophen 1 tab ONCE ONCE PO 02/10/25 20:15 02/10/25 20:16 DC 02/10/25 20:58 1 TAB Assessment/Plan Assessment/Plan Assessment Left hip fracture Acute kidney injury Hypertension COPD Plan Admit the patient to Med surge to the hospitalist Orthopedic consultation Resume home medications Pain management Continue treatment per orders. Plan discussed with: Patient My Orders Orders - TODD LOPEZ AGACNP Procedure Category Date Status Time Albuterol Medneb PHA 02/10/25 In Process (Ventolin Medneb) 23:30 Ranolazine (Ranexa Er) PHA 02/11/25 In Process 10:00 Atorvastatin (Lipitor) PHA 02/11/25 In Process 22:00 Spironolactone PHA 02/11/25 In Process (Aldactone) 10:00 Clopidogrel Bisulfate PHA 02/11/25 In Process (Plavix) 10:00 *Consult Dr. Galdamez CONS 02/10/25 Transmitted Sol 23:25 Basic Metabolic Panel LAB 02/11/25 Logged 04:00 Admit ADMIT 02/10/25 Transmitted 23:25 Ondansetron Hcl PHA 02/10/25 In Process (Zofran) 23:30 Complete Blood Count LAB 02/11/25 Logged 04:00 Cardiac DIET 02/11/25 Transmitted Diet-2gna,Lofat,Lochol Breakfast Condition: Stable AME 02/10/25 In Process 23:25 Acetaminophen Tablet PHA 02/10/25 In Process (Tylenol Tablet) 23:30 Bedrest With Bathroom AME 02/10/25 In Process Privileg 23:25 Morphine Sulfate PHA 02/10/25 In Process Injection 23:30 Nitroglycerin PHA 02/10/25 In Process Sublingual (Ntrostat 23:30 Morphine Sulfate PHA 02/10/25 In Process Injection 23:30 Stat Ekg For Chest AME 02/10/25 In Process Pain 23:25 Notify Of Changes [facility] 02/10/25 In Process From Base 23:25 Knitter Helper For [facility] 02/10/25 In Process 24 Hours 23:25 Emergency Dysrhythmia AME 02/10/25 In Process Protocol 23:25 Rhythm Strips Once [facility] 02/10/25 In Process Every Shift 23:25 Oxygen By Nasal RT 02/10/25 Transmitted Cannula 23:25 Date of Service: Feb 10, 2025 Billing Provider: TODD LOPEZ Common Visit Codes: [id number] INP/OBS CARE (HIGH) TODD LOPEZ Feb 11, 2025 03:52
--- NOTE | 2025-02-11 06:15 | ECG ---
[facility] Test Date: 2025-02-11 Test Time: 01:37:23 Pat Name: MONICA JAMES Department: ED Room: 0207 A Gender: F Building Dismantler: am : 1945 Requested By: TAMIKO HASSAN Order Number: [id number] Reading MD: Adair Mijares Measurements Intervals [place] Rate: 74 P: 34 [place]: 189 QRS: 266 QRSD: 139 T: 90 QT: 464 QTc: 515 Interpretive Statements Atrial-sensed ventricular-paced rhythm No further analysis attempted due to paced rhythm Electronically Signed On 02-11-2025 16:41:50 PDT by Adair Mijares Please click the below link to view image of tracing.
[2025-02-11] MEDS: ALBUTEROL SULF 2.5 MG/0.5ML(0.5%) NEB SOLN NEB PRN (06:21)
[2025-02-11] MEDS: RANOLAZINE ER 500 MG TAB PO SCH (09:09)
[2025-02-11] MEDS: SPIRONOLACTONE 25 MG TAB PO SCH (09:09)
[2025-02-11] MEDS: CLOPIDOGREL BISULFATE 75 MG TAB PO SCH (09:12)
[2025-02-11 09:22] LABS: Hematocrit 42.5 % (36.0-46.0); Hemoglobin 13.9 g/dL (12.2-16.2); Mean Corpuscular Hemoglobin 29.2 pg (28.0-32.0); Mean Corpuscular Volume 89.2 fL (80.0-100.0); Nucleated Red Blood Cells % 0.1 %
[2025-02-11 09:35] LABS: Chloride 105 mmol/L (98-107); Potassium 4.6 mmol/L (3.5-5.1); Sodium 140 mmol/L (136-145)
[2025-02-11 09:36] LABS: Anion Gap 9 (5-15); Carbon Dioxide 26 mmol/L (20-31)
[2025-02-11 09:37] LABS: Calcium 9.7 mg/dL (8.7-10.4)
[2025-02-11 09:41] LABS: BUN/Creatinine Ratio 21.7 (10.0-20.0)
--- NOTE | 2025-02-11 10:07 | DVH ---
CLINICAL INDICATION: hip pain post fall left TECHNIQUE: 1 radiographic views of the pelvis and 2 views of the left hip were obtained. Comparison: CT CT L HIP WITH OUT CONTRAST on DOS: 02/04/25, XY L HIP COMPLETE XRAY on DOS: 02/04/25, XY R HIP COMPLETE XRAY on DOS: 12/22/24, XY R HIP 1V XRAY on DOS: 12/05/24 FINDINGS/IMPRESSION: Nondisplaced fracture of the left greater trochanter.
[2025-02-11 10:10] LABS: Blood Urea Nitrogen 28 mg/dL (9-23); Glucose 124 mg/dL (74-106)
[2025-02-11] MEDS ORDERED: ARTIFICIAL TEARS 15ml EACHEYE PRN (15:00)
--- NOTE | 2025-02-11 16:00 | DVHPN2 ---
Subjective Having hip pain, seen at bedside today,. Reviewed: H&P Changes from previous H/P or p: No Changes General: Per HPI Objective Vitals Vital Signs Date Time Temp Pulse Resp B/P (MAP) Pulse Ox O2 Delivery O2 Flow Rate FiO2 02/11/25 13:22 75 17 110/73 02/11/25 13:00 97.8 98 97.8 02/11/25 10:00 Room Air* 0 21 Exam Gen: 79-year-old female in mild distress Skin: Warm, dry, normal color and texture, no rash. HEENT: Normocephalic atraumatic, mucous membranes moist and pink. Neck: Cervical and supraclavicular nodes normal without enlargement, trachea is midline, thyroid gland is normal without masses. Pulmonary: Clear to auscultation and percussion bilaterally. Cardiac: Regular rate and rhythm. No murmur Abdomen: Soft, nontender, nondistended, bowel sounds present all 4 quadrants, no guarding, no rigidity, no organomegaly. Extremities: No cyanosis, clubbing, no edema Neuro: Cranial nerves II through XII grossly intact, normal affect and speech, no focal motor deficits. Medications Current Medications Medications Dose Ordered Sig/Asha Route Start Time Stop Time Status Last Admin Dose Admin Albuterol 2.5 mg Q6HPRN PRN NEB 02/10/25 23:30 02/11/25 06:21 2.5 MG Ranolazine 500 mg BID PO 02/11/25 10:00 02/11/25 09:09 500 MG Atorvastatin Calcium 40 mg HS PO 02/11/25 22:00 Spironolactone 25 mg DAILY PO 02/11/25 10:00 02/11/25 09:09 25 MG Clopidogrel Bisulfate 75 mg DAILY PO 02/11/25 10:00 Ondansetron HCl 4 mg Q4HP PRN IV 02/10/25 23:30 02/11/25 13:20 4 MG Acetaminophen 650 mg Q6HP PRN PO 02/10/25 23:30 Nitroglycerin 0.4 mg Q5MINP PRN SL 02/10/25 23:30 Morphine Sulfate 2 mg Q30M PRN IV 02/10/25 23:30 Hydromorphone HCl 0.5 mg Q4HPRN PRN IV 02/11/25 15:00 Artificial Tears 1 drop [id number] PRN EACHEYE 02/11/25 15:00 Laboratory Results Laboratory Tests 02/11/25 09:03 Chemistry Test 02/10/25 21:07 02/11/25 09:03 Calcium Level 10.3 mg/dL (8.7-10.4) 9.7 mg/dL (8.7-10.4) Coagulation Test 02/10/25 23:58 Prothrombin Time 11.3 sec (9.3-11.8) Prothrombin Time INR 1.07 (0.9-1.15) Activated Partial Thromboplast Time 32.0 SEC (24.5-34.5) Labs and/or images reviewed: Labs reviewed by me, Image(s) reviewed by me Assessment/Plan Assessment/Plan 79-year-old female presents for evaluation of left hip pain. Patient reports her left leg giving out while using her walker and falling onto her left side. She complaints of worsening left hip pain. Of note, patient was admitted a week ago and evaluated for left hip surgery due to fracture. Patient opted to be discharged home and be seen as an outpatient. Today she returns and wants to be evaluated again for surgery. 02/11. : Consult for ortho has been placed, pending recs. We will make patient NPO midnight preemptively, labs in a.m.. Until then continue pain control. Patient wants Joshi she has trouble moving, we will get UA. Patient wants DNR as per her prior decision. We will give eyedrops due to dry. dx: acute Left hip fracture Acute kidney injury Chronic anemia Anxiety Asthma Coronary artery disease COPD History of CVA Hypertension Mixed hyperlipidemia Status post pacemaker Status post CABG UTI plan: Pain control PRN IV fluids Ortho consult Continue other home medications, Lipitor, Plavix, Ranexa ER, Aldactone,. Med surge DNR Plan discussed with: Patient My Orders Orders - DELFINO VICENTE MD Procedure Category Date Status Time Insert Joshi Catheter AME 02/11/25 In Process 14:55 Urinalysis LAB 02/11/25 Uncollected 14:55 Hydromorphone PHA 02/11/25 In Process Injection (Dilaudid 15:00 Artificial Tear 15ml PHA 02/11/25 In Process Opthalmic (Tears Na 15:00 Date of Service: Feb 11, 2025 Billing Provider: DELFINO VICENTE MD Common Visit Codes: [id number] INP/OBS CARE(HIGH) DELFINO VICENTE MD Feb 11, 2025 16:00
--- NOTE | 2025-02-11 17:10 | DVHINCON2 ---
Date of service: Feb 11, 2025 Referring Physician ED Reason for Consultation Left hip pain, possible fracture History of Present Illness 79-year-old female presents for evaluation of left hip pain. Patient reports her left leg giving out while using her walker and falling onto her left side. She complaints of worsening left hip pain. Of note, patient was admitted a week ago and evaluated for left hip surgery due to fracture. Today she returns and wants to be evaluated again for surgery. Patient has a history of multiple fall s over the last week or two. She was seen here last week and as well at [facility] where she was told that she had an acute SD. patient reportedly has severe cardiomyopathy with a 10% ejection fraction. Patient lives in an assisted living facility. She is a household ambulator with walker. She denies any chest pain, dizziness, or neurologic symptoms associated with this fall. Past Medical History Asthma, CAD, CHF, chronic kidney disease, hypertension, CVA, COPD Past Surgical History Appendectomy, CABG, hysterectomy, pacemaker PTCA, tonsillectomy Family History Noncontributory Smoke: No ALCOHOL: none Drugs: None Lives: with Family Family History: Arthritis Cardiovascular disease G8 MOTHER, Onset:Unknown Cerebrovascular accident (CVA) G8 FATHER Coronary artery disease G8 MOTHER, Onset:Unknown FH: diabetes mellitus G8 MOTHER, Onset:Unknown FH: heart disease G8 MOTHER, Onset:Unknown FH: hypertension G8 MOTHER, Onset:Unknown FH: lupus 19 CHILD FH: myocardial infarction G8 MOTHER, Onset:Unknown Family history: Cardiovascular disease G8 MOTHER, Onset:Unknown G8 FATHER, Onset:Unknown Glaucoma G8 MOTHER, Onset:Unknown Allergies: Coded Allergies: Ceftriaxone (Verified Allergy, Intermediate, generalized rash, 11/08/22) [employer]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 Hydrocodone (Verified Allergy, Unknown, rash, 05/18/23) tylenol is okay per patient Home Meds Active Scripts Ciprofloxacin Hcl (Cipro) 250 Mg Tab, 250 MG PO BID for 5 Days, #10 TAB Prov:YENNY FRAIRE MD 02/09/25 Oxycodone W/ Acetaminophen (Percocet 5/325MG) 1 Tab Tb, 1 TAB PO QID PRN, #20 TAB Prov:YENNY FRAIRE MD 02/09/25 Levofloxacin Hemihydrate (LEVOFLOXACIN) 750 Mg Tab, 750 MG PO DAILY for 5 Days, #5 TAB Prov:PHILL LEAL RESDIENT 01/17/25 Oxycodone W/ Acetaminophen (Percocet 5/325MG) 1 Tab Tb, 1 TAB PO QID, #30 TAB Prov:JANE VEGA MD 09/29/24 Phenazopyridine HCl (Eq Urinary Pain Relief Ma) 99.5 Mg Tab, 99.5 MG PO TID for 10 Days, #30 TAB Prov:PHILL LEAL RESDIENT 09/23/24 Metoprolol Succinate (Metoprolol Succinate Er) 25 Mg Tab, 1 TAB PO DAILY for 30 Days, #30 TAB 5 Refills Prov:AXEL CARABALLO RESIDENT 09/06/24 Spironolactone (Aldactone) 25 Mg Tab, 25 MG PO DAILY for 30 Days, #30 TAB Prov:BHARAT MICHELLE RESIDENT 07/22/24 Oxybutynin Chloride (Oxybutynin Chloride) 5 Mg Tab, 5 MG PO Q8HR for 30 Days, #90 TAB Prov:BHARAT MICHELLE RESIDENT 07/22/24 Atorvastatin Calcium (ATORVASTATIN CALCIUM) 20 Mg Tab, 40 MG PO HS for 30 Days, #60 TAB Prov:BHARAT MICHELLE RESIDENT 07/22/24 Duloxetine Hydrochloride (Duloxetine Hydrochloride) 30 Mg Cap, 30 MG PO DAILY for 30 Days, #30 CAP Prov:WINSOME GOMEZ MD 04/29/24 Clopidogrel Bisulfate (CLOPIDOGREL) 75 Mg Tab, 75 MG PO DAILY for 30 Days, #30 TAB 5 Refills Prov:YENNY FRAIRE MD 11/26/23 Ranolazine (Ranolazine ER) 500 Mg Tab, 500 MG PO BID for 30 Days, #60 TAB 2 Refills Prov:MAGAN RUSS RESIDENT 09/16/23 Reported Medications Polyethylene Glycol 3350 (Miralax) 17 Gm Pow, 17 GM PO DAILY PRN for FOR CONSTIPATION for 30 Days, #30 01/28/24 Ipratropium-Albuterol (Ipratropium [place]/Albut) 1 Yuli Yuli, 1 VIAL NEB Q6HPRN PRN for SHORTNESS OF BREATH for 13 Days, #180 09/05/23 Fluticasone-Salmeterol (Fluticasone Propionate/SA 250-50 Mcg/Dose) 1 Aer Aer, 1 PUFF INH BID for 30 Days, #60 09/05/23 Albuterol Sulfate (Albuterol Sulfate Hfa) 108 Mcg/Act Aer, 2 PUFF INH Q4HPRN PRN for dyspnea for 17 Days, #18 09/05/23 Cholecalciferol (VITAMIN D3) 2,000 Unit Tab, 1 TAB PO BID for 30 Days, #60 08/28/23 Multiple Vitamin (Tab-A-Radha) Tab, 1 TAB PO DAILY for 30 Days, #30 08/28/23 Aspirin (Aspir-Low) 81 Mg Tab, 1 TAB PO DAILY for 30 Days, #30 08/28/23 Ascorbic Acid (VITAMIN C TABLET) 500 Mg Tb, 1 TAB PO BID for 30 Days, #60 05/18/23 Pantoprazole Sodium Sesquihydr (Pantoprazole Sodium) 40 Mg Tab, 1 TAB PO DAILY 05/18/23 Current Medications Current Medications Medications (Trade) Dose Ordered Sig/Asha Route PRN Reason Start Time Stop Time Status Last Admin Albuterol (Ventolin Medneb) 2.5 mg Q6HPRN PRN NEB SHORTNESS OF BREATH 02/10/25 23:30 02/11/25 16:07 Ranolazine (Ranexa ER) 500 mg BID PO 02/11/25 10:00 02/11/25 09:09 Atorvastatin Calcium (Lipitor) 40 mg HS PO 02/11/25 22:00 Spironolactone (Aldactone) 25 mg DAILY PO 02/11/25 10:00 02/11/25 09:09 Clopidogrel Bisulfate (Plavix) 75 mg DAILY PO 02/11/25 10:00 Ondansetron HCl (Zofran) 4 mg Q4HP PRN IV NAUSEA / VOMITING 02/10/25 23:30 02/11/25 13:20 Acetaminophen (Tylenol Tablet) 650 mg Q6HP PRN PO PAIN SCALE 1-3 OR TEMP>100.4 02/10/25 23:30 Morphine Sulfate 2 mg Q4HPRN PRN IV SEVERE PAIN (7-10 PAIN SCALE) 02/10/25 23:30 02/11/25 14:58 DC 02/11/25 13:22 Nitroglycerin (Ntrostat Sublingual) 0.4 mg Q5MINP PRN SL FOR CHEST PAIN 02/10/25 23:30 Morphine Sulfate 2 mg Q30M PRN IV FOR CHEST PAIN 02/10/25 23:30 Hydromorphone HCl (Dilaudid Injection) 0.5 mg Q4HPRN PRN IV SEVERE PAIN (7-10 PAIN SCALE) 02/11/25 15:00 Artificial Tears (Tears Naturale) 1 drop [id number] PRN EACHEYE DRY EYES 02/11/25 15:00 Review of Systems Negative on 10 point review except as above Vital Signs Vital Signs Date Time Temp Pulse Resp B/P (MAP) Pulse Ox O2 Delivery O2 Flow Rate FiO2 02/11/25 17:00 98.1 74 17 108/59 (75) 97 98.1 02/11/25 16:07 Nasal Cannula 1.0 02/11/25 16:07 24 Physical Exam Alert and oriented x4 Well-developed obese elderly female in no acute distress Passive range of motion of the left hip causes mild discomfort There was no distal edema Intact ankle flexion-extension Intact distal DP pulse Sensation subjectively intact X-rays and CT from this admission reveals a possible nondisplaced greater trochanter fracture. Previous CT suggested a possibility of some incomplete extension into the intertroch area. Labs/Diagnostic Data Labs Test 02/11/25 09:03 02/10/25 23:58 Range/Units White Blood Count 7.7 # 4.4-10.8 10^3/uL Red Blood Count 4.76 4.0-5.20 10^6/uL Hemoglobin 13.9 12.2-16.2 g/dL Hematocrit 42.5 36.0-46.0 % Mean Corpuscular Volume 89.2 80.0-100.0 fL Mean Corpuscular Hemoglobin 29.2 28.0-32.0 pg Mean Corpuscular Hemoglobin Concent 32.8 32.0-36.0 g/dL Red Cell Distribution Width 16.8 H 11.8-14.3 % Platelet Count 378 140-450 10^3/uL Mean Platelet Volume 8.0 6.9-10.8 fL Neutrophils (%) (Auto) 60.2 37.0-80.0 % Lymphocytes (%) (Auto) 22.9 10.0-50.0 % Monocytes (%) (Auto) 12.0 0.0-12.0 % Eosinophils (%) (Auto) 4.0 0.0-7.0 % Basophils (%) (Auto) 0.9 0.0-2.0 % Neutrophils # (Auto) 4.6 1.6-8.6 10 ^3/uL Lymphocytes # (Auto) 1.8 0.4-5.4 10 ^3/uL Monocytes # (Auto) 0.9 0-1.3 10 ^3/uL Eosinophils # (Auto) 0.3 0-0.8 10 ^3/uL Basophils # (Auto) 0.1 0-0.2 10 ^3/uL Nucleated Red Blood Cells 0.1 % Sodium Level 140 136-145 mmol/L Potassium Level 4.6 3.5-5.1 mmol/L Chloride Level 105 98-107 mmol/L Carbon Dioxide Level 26 20-31 mmol/L Anion Gap 9 5-15 Blood Urea Nitrogen 28 H 9-23 mg/dL Creatinine 1.29 H 0.550-1.02 mg/dL Glomerular Filtration Rate Calc 42 >90 mL/min BUN/Creatinine Ratio 21.7 H 10.0-20.0 Serum Glucose 124 H 74-106 mg/dL Calcium Level 9.7 8.7-10.4 mg/dL Prothrombin Time 11.3 9.3-11.8 sec Prothrombin Time INR 1.07 0.9-1.15 Activated Partial Thromboplast Time 32.0 24.5-34.5 SEC Assessment Left hip pain possible fracture Extensive comorbidities Plan/Recommendation The patient is high risk for surgery. Reportedly has advanced cardiomyopathy and has had multiple cardiac events in the past. Patient is not a candidate for MRI due to defibrillator. I am ordering bone scan to rule out a complete intertroch fracture versus a nondisplaced greater troch fracture. In addition, I am requesting another cardiac consultation due to patient's reported history of having recent SD. Further recommendations to follow results of the bone scan and cardiology consultation. Plan discussed with: Patient, Other (nurse) LAURYN ROBIN MD Feb 11, 2025 17:10
[2025-02-11] MEDS: HYDROmorphone HCL 2 MG/ML VL/or syr IV PRN (17:39)
[2025-02-11 18:31] LABS: Urine Protein, UAD Negative (Negative)
[2025-02-11] MEDS: ACETAMINOPHEN 325 MG TAB PO PRN (20:10)
[2025-02-11] MEDS: ATORVASTATIN 20 MG TAB PO SCH (21:44)
[2025-02-12] VITALS (14 sets, daily range): BP systolic 102–129; BP diastolic 55–65; PULSE 61–84; RESP 16–18; TEMP 97.8–98.5; O2SAT 93–99
[2025-02-12 07:01] LABS: Hematocrit 41.7 % (36.0-46.0); Hemoglobin 13.6 g/dL (12.2-16.2); Mean Corpuscular Hemoglobin 29.0 pg (28.0-32.0); Mean Corpuscular Volume 88.6 fL (80.0-100.0); Nucleated Red Blood Cells % 0.0 %
[2025-02-12 07:10] LABS: INR 1.01 (0.9-1.15); Prothrombin Time 10.7 sec (9.3-11.8)
--- NOTE | 2025-02-12 07:42 | DVHPN2 ---
Subjective Having hip pain, seen at bedside today,. Reviewed: H&P Changes from previous H/P or p: No Changes General: Per HPI Objective Vitals Vital Signs Date Time Temp Pulse Resp B/P (MAP) Pulse Ox O2 Delivery O2 Flow Rate FiO2 02/12/25 06:01 78 18 126/75 02/12/25 05:00 98.0 98 98.0 02/11/25 20:01 Nasal Cannula* 1 24 Intake/Output Intake and Output 02/12/25 07:00 Intake Total 1030 ml Output Total 300 ml Balance 730 ml Intake Oral 1030 ml Output Urine Total 300 ml # Bowel Movements 1 Exam Gen: 79-year-old female in mild distress Skin: Warm, dry, normal color and texture, no rash. HEENT: Normocephalic atraumatic, mucous membranes moist and pink. Neck: Cervical and supraclavicular nodes normal without enlargement, trachea is midline, thyroid gland is normal without masses. Pulmonary: Clear to auscultation and percussion bilaterally. Cardiac: Regular rate and rhythm. No murmur Abdomen: Soft, nontender, nondistended, bowel sounds present all 4 quadrants, no guarding, no rigidity, no organomegaly. Extremities: No cyanosis, clubbing, no edema Neuro: Cranial nerves II through XII grossly intact, normal affect and speech, no focal motor deficits. Medications Current Medications Medications Dose Ordered Sig/Asha Route Start Time Stop Time Status Last Admin Dose Admin Albuterol 2.5 mg Q6HPRN PRN NEB 02/10/25 23:30 02/12/25 02:16 2.5 MG Ranolazine 500 mg BID PO 02/11/25 10:00 02/11/25 21:44 500 MG Atorvastatin Calcium 40 mg HS PO 02/11/25 22:00 02/11/25 21:44 40 MG Spironolactone 25 mg DAILY PO 02/11/25 10:00 02/11/25 09:09 25 MG Clopidogrel Bisulfate 75 mg DAILY PO 02/11/25 10:00 Ondansetron HCl 4 mg Q4HP PRN IV 02/10/25 23:30 02/12/25 06:01 4 MG Acetaminophen 650 mg Q6HP PRN PO 02/10/25 23:30 02/11/25 20:10 650 MG Nitroglycerin 0.4 mg Q5MINP PRN SL 02/10/25 23:30 Morphine Sulfate 2 mg Q30M PRN IV 02/10/25 23:30 Hydromorphone HCl 0.5 mg Q4HPRN PRN IV 02/11/25 15:00 02/12/25 06:01 0.5 MG Artificial Tears 1 drop [id number] PRN EACHEYE 02/11/25 15:00 Laboratory Results Laboratory Tests 02/12/25 05:22 Chemistry Test 02/11/25 09:03 02/12/25 05:22 Calcium Level 9.7 mg/dL (8.7-10.4) Pending Albumin Pending Total Protein Pending Coagulation Test 02/12/25 05:22 Prothrombin Time 10.7 sec (9.3-11.8) Prothrombin Time INR 1.01 (0.9-1.15) LFT Test 02/12/25 05:22 Alanine Aminotransferase (ALT) Pending Alkaline Phosphatase Pending Aspartate Amino Transferase (AST) Pending Total Bilirubin Pending Urinalysis Test 02/11/25 16:20 Urine Color Yellow (Yellow) Urine Clarity Clear (Clear) Urine pH 5.5 (5.0-9.0) Urine Specific [place] 1.022 (1.001-1.035) Urine Protein Negative (Negative) Urine Ketones Negative (Negative) Urine Blood Negative /uL (Negative) Urine Nitrite Negative (Negative) Urine Bilirubin Negative (Negative) Urine Urobilinogen Normal mg/dL (Negative) Urine Leukocyte Esterase 1+ /uL (Negative) Urine RBC 3 /hpf (0 - 4) Urine Microscopic WBC 23 /HPF (0-5) H Urine Squamous Epithelial Cells Few /hpf (<5) Urine Bacteria Few /hpf (None Seen) H Urine Mucus Few (None Seen) Urine Glucose Normal mg/dL (Normal) Labs and/or images reviewed: Labs reviewed by me, Image(s) reviewed by me Assessment/Plan Assessment/Plan 79-year-old female presents for evaluation of left hip pain. Patient reports her left leg giving out while using her walker and falling onto her left side. She complaints of worsening left hip pain. Of note, patient was admitted a week ago and evaluated for left hip surgery due to fracture. Patient opted to be discharged home and be seen as an outpatient. Today she returns and wants to be evaluated again for surgery. 02/11. : Consult for ortho has been placed, pending recs. We will make patient NPO midnight preemptively, labs in a.m.. Until then continue pain control. Patient wants Joshi she has trouble moving, we will get UA. Patient wants DNR as per her prior decision. We will give eyedrops due to dry. 02/12: Patient continues to left hip pain. Asking for increase pain meds, increasing Dilaudid, pending cardiology clearance for preop, UA still concerning for UTI, she is complaining of urinary symptoms. She has allergies to ceftriaxone, given prior history we will start with meropenem 1 g t.i.d.. dx: acute Left hip fracture Acute kidney injury Acute cystitis, recurrent Chronic anemia Anxiety Asthma Coronary artery disease COPD History of CVA Hypertension Mixed hyperlipidemia Status post pacemaker Status post CABG plan: Pain control PRN IV fluids Ortho consult Continue other home medications, Lipitor, Plavix, Ranexa ER, Aldactone,. Med surge DNR Plan discussed with: Patient My Orders Orders - DELFINO VICENTE MD Procedure Category Date Status Time Insert Joshi Catheter AME 02/11/25 In Process 14:55 Hydromorphone PHA 02/11/25 In Process Injection (Dilaudid 15:00 Artificial Tear 15ml PHA 02/11/25 In Process Opthalmic (Tears Na 15:00 Comprehensive LAB 02/12/25 In Process Metabolic Panel 04:00 Date of Service: Feb 12, 2025 Billing Provider: DELFINO VICENTE MD Common Visit Codes: [id number] INP/OBS CARE(HIGH) DELFINO VICENTE MD Feb 12, 2025 07:42
[2025-02-12 09:01] LABS: Anion Gap 8 (5-15)
[2025-02-12 09:12] LABS: Albumin 4.1 g/dL (3.2-4.8); Alkaline Phosphatase 110 U/L (46-116); Bilirubin, Total 0.4 mg/dL (0.2-1.0); Calcium 9.1 mg/dL (8.7-10.4); Carbon Dioxide 25 mmol/L (20-31); Chloride 105 mmol/L (98-107); Glucose 145 mg/dL (74-106); Sodium 138 mmol/L (136-145); Total Protein 6.5 g/dL (5.7-8.2)
[2025-02-12 09:13] LABS: BUN/Creatinine Ratio 28.7 (10.0-20.0); Blood Urea Nitrogen 33 mg/dL (9-23); Potassium 4.6 mmol/L (3.5-5.1)
[2025-02-12 09:14] LABS: Alanine Aminotransferase < 9 U/L (7-40)
[2025-02-12] MEDS: SACUBITRIL-VALSARTAN 24mg/26mg TAB PO SCH (09:41)
[2025-02-12] MEDS: METOPROLOL SUCCINATE XL 50 MG TAB PO SCH (09:42)
[2025-02-12] MEDS: HYDROmorphone HCL 2 MG/ML VL/or syr IV PRN (10:04)
--- NOTE | 2025-02-12 10:33 | DVHINCON2 ---
Date of service: Feb 12, 2025 History of Present Illness HPI Patient is a 79-year-old female who presented to the hospital after fall in assisted living facility. She was recently in the hospital for the same and at that point she was found to have hip fracture. At that point the patient was seen by Cardiology and Orthopedics. At that point, the suggestion by Orthopedics was to proceed with hip surgery after cardiac clearance. Patient was risk stratified by Cardiology/us. Patient herself decided against any surgery at that point. At this time, the patient is reconsidering the offer for surgery. Cardiology is involved for cardiac catheterization with self-care and cardiac risk stratification. Home Meds Active Scripts Ciprofloxacin Hcl (Cipro) 250 Mg Tab, 250 MG PO BID for 5 Days, #10 TAB Prov:YENNY FRAIRE MD 02/09/25 Oxycodone W/ Acetaminophen (Percocet 5/325MG) 1 Tab Tb, 1 TAB PO QID PRN, #20 TAB Prov:YENNY FRAIRE MD 02/09/25 Levofloxacin Hemihydrate (LEVOFLOXACIN) 750 Mg Tab, 750 MG PO DAILY for 5 Days, #5 TAB Prov:PHILL LEAL RESDIENT 01/17/25 Oxycodone W/ Acetaminophen (Percocet 5/325MG) 1 Tab Tb, 1 TAB PO QID, #30 TAB Prov:JANE VEGA MD 09/29/24 Phenazopyridine HCl (Eq Urinary Pain Relief Ma) 99.5 Mg Tab, 99.5 MG PO TID for 10 Days, #30 TAB Prov:PHILL LEAL RESDIENT 09/23/24 Metoprolol Succinate (Metoprolol Succinate Er) 25 Mg Tab, 1 TAB PO DAILY for 30 Days, #30 TAB 5 Refills Prov:AXEL CARABALLO RESIDENT 09/06/24 Spironolactone (Aldactone) 25 Mg Tab, 25 MG PO DAILY for 30 Days, #30 TAB Prov:BHARAT MICHELLE RESIDENT 07/22/24 Oxybutynin Chloride (Oxybutynin Chloride) 5 Mg Tab, 5 MG PO Q8HR for 30 Days, #90 TAB Prov:BHARAT MICHELLE RESIDENT 07/22/24 Atorvastatin Calcium (ATORVASTATIN CALCIUM) 20 Mg Tab, 40 MG PO HS for 30 Days, #60 TAB Prov:BHARAT MICHELLE RESIDENT 07/22/24 Duloxetine Hydrochloride (Duloxetine Hydrochloride) 30 Mg Cap, 30 MG PO DAILY for 30 Days, #30 CAP Prov:WINSOME GOMEZ MD 04/29/24 Clopidogrel Bisulfate (CLOPIDOGREL) 75 Mg Tab, 75 MG PO DAILY for 30 Days, #30 TAB 5 Refills Prov:YENNY FRAIRE MD 11/26/23 Ranolazine (Ranolazine ER) 500 Mg Tab, 500 MG PO BID for 30 Days, #60 TAB 2 Refills Prov:MAGAN RUSS RESIDENT 09/16/23 Reported Medications Polyethylene Glycol 3350 (Miralax) 17 Gm Pow, 17 GM PO DAILY PRN for FOR CONSTIPATION for 30 Days, #30 01/28/24 Ipratropium-Albuterol (Ipratropium [place]/Albut) 1 Yuli Yuli, 1 VIAL NEB Q6HPRN PRN for SHORTNESS OF BREATH for 13 Days, #180 09/05/23 Fluticasone-Salmeterol (Fluticasone Propionate/SA 250-50 Mcg/Dose) 1 Aer Aer, 1 PUFF INH BID for 30 Days, #60 09/05/23 Albuterol Sulfate (Albuterol Sulfate Hfa) 108 Mcg/Act Aer, 2 PUFF INH Q4HPRN PRN for dyspnea for 17 Days, #18 09/05/23 Cholecalciferol (VITAMIN D3) 2,000 Unit Tab, 1 TAB PO BID for 30 Days, #60 24 Multiple Vitamin (Tab-A-Radha) Tab, 1 TAB PO DAILY for 30 Days, #30 08/28/23 Aspirin (Aspir-Low) 81 Mg Tab, 1 TAB PO DAILY for 30 Days, #30 08/28/23 Ascorbic Acid (VITAMIN C TABLET) 500 Mg Tb, 1 TAB PO BID for 30 Days, #60 05/18/23 Pantoprazole Sodium Sesquihydr (Pantoprazole Sodium) 40 Mg Tab, 1 TAB PO DAILY 05/18/23 Past Medical History Others Past medical history includes hypertension, hyperlipidemia, coronary artery disease, history of CABG (2010), systolic heart failure, ischemic cardiomy opathy, gout, kidney stone, s/p ESWL, frequent UTI, history of CVA, Diverticulosis, COPD, Emphysema, s/p COVID, depression, Anxiety, GERD, history of appendectomy/hysterectomy/tonsillectomy, and history of BiV ICD (Biotronik) implantation. She is chronically wheelchair-bound. She was previously in hospice for heart failure. She is allergic to codeine. She quit smoking years ago. She is DNR. She also has diagnosis of parkinsonism. Cardiac catheterization of August 26, 2024 (performed in [facility]) revealed triple-vessel [place] coronary artery disease. PRINTING TABLE HAND of obtuse marginal. PRINTING TABLE HAND of RCA. Lad with 75% lesion and status post drug-eluting stent deployment. It is of note that there is patent SVG to obtuse marginal and also patent SVG to RCA. Patient Family History: Arthritis Cardiovascular disease G8 MOTHER, Onset:Unknown Cerebrovascular accident (CVA) G8 FATHER Coronary artery disease G8 MOTHER, Onset:Unknown FH: diabetes mellitus G8 MOTHER, Onset:Unknown FH: heart disease G8 MOTHER, Onset:Unknown FH: hypertension G8 MOTHER, Onset:Unknown FH: lupus 19 CHILD FH: myocardial infarction G8 MOTHER, Onset:Unknown Family history: Cardiovascular disease G8 MOTHER, Onset:Unknown G8 FATHER, Onset:Unknown Glaucoma G8 MOTHER, Onset:Unknown Drugs: None Review of Systems Constitutional: No symptom reported Ears, Nose, & Throat: No symptom reported Pulmonary/Respiratory: No symptom reported Cardiovascular: No symptom reported Gastrointestinal: No symptom reported All Other Systems 14 point review of system was performed. Relevant findings as per above and as per HPI. Otherwise negative. H&P Exam Vital Signs Vital Signs Date Time Temp Pulse Resp B/P (MAP) Pulse Ox O2 Delivery O2 Flow Rate FiO2 02/12/25 10:04 80 18 107/61 02/12/25 09:00 98.5 98 98.5 02/12/25 08:00 Nasal Cannula* 2 28 General Appeara: Well developed Head Exam: Normal inspection Eye Exam: bilateral eye Normal inspection Mouth: Normal Inspection Pulmonary/Respiratory: Lungs clear Cardiovascular/Chest: Regular rate, Systolic murmur Peripheral Pulses: 2+ carotid (R), 2+ carotid (L), 2+ femoral (R), 2+ femoral (L), 2+ dorsalis pedis (R), 2+ dorsalis pedis (L), 2+ Radial (R), 2+ Radial (L) Abdominal Exam: Normal bowel sounds, Soft Neuro/Mental St: Alert, Oriented Appearance: Appropriate appearance Eye contact/ Speech: Cooperative Labs/Xrays Labs Test 02/12/25 08:37 02/12/25 05:22 02/11/25 16:20 02/10/25 23:58 Range/Units Sodium Level 138 136-145 mmol/L Potassium Level 4.6 3.5-5.1 mmol/L Chloride Level 105 98-107 mmol/L Carbon Dioxide Level 25 20-31 mmol/L Anion Gap 8 5-15 Blood Urea Nitrogen 33 H 9-23 mg/dL Creatinine 1.15 H 0.550-1.02 mg/dL Glomerular Filtration Rate Calc 48 >90 mL/min BUN/Creatinine Ratio 28.7 H 10.0-20.0 Serum Glucose 145 H 74-106 mg/dL Calcium Level 9.1 8.7-10.4 mg/dL Total Bilirubin 0.4 0.2-1.0 mg/dL Aspartate Amino Transferase (AST) 20 13-40 U/L Alanine Aminotransferase (ALT) < 9 7-40 U/L Alkaline Phosphatase 110 46-116 U/L Total Protein 6.5 5.7-8.2 g/dL Albumin 4.1 3.2-4.8 g/dL White Blood Count 7.2 4.4-10.8 10^3/uL Red Blood Count 4.70 4.0-5.20 10^6/uL Hemoglobin 13.6 12.2-16.2 g/dL Hematocrit 41.7 36.0-46.0 % Mean Corpuscular Volume 88.6 80.0-100.0 fL Mean Corpuscular Hemoglobin 29.0 28.0-32.0 pg Mean Corpuscular Hemoglobin Concent 32.8 32.0-36.0 g/dL Red Cell Distribution Width 17.5 H 11.8-14.3 % Platelet Count 353 140-450 10^3/uL Mean Platelet Volume 8.4 6.9-10.8 fL Neutrophils (%) (Auto) 47.0 37.0-80.0 % Lymphocytes (%) (Auto) 27.5 10.0-50.0 % Monocytes (%) (Auto) 14.5 H 0.0-12.0 % Eosinophils (%) (Auto) 10.3 H 0.0-7.0 % Basophils (%) (Auto) 0.7 0.0-2.0 % Neutrophils # (Auto) 3.4 1.6-8.6 10 ^3/uL Lymphocytes # (Auto) 2.0 0.4-5.4 10 ^3/uL Monocytes # (Auto) 1.0 0-1.3 10 ^3/uL Eosinophils # (Auto) 0.7 0-0.8 10 ^3/uL Basophils # (Auto) 0.1 0-0.2 10 ^3/uL Nucleated Red Blood Cells 0.0 % Prothrombin Time 10.7 9.3-11.8 sec Prothrombin Time INR 1.01 0.9-1.15 Urine Color Yellow Yellow Urine Clarity Clear Clear Urine pH 5.5 5.0-9.0 Urine Specific [place] 1.022 1.001-1.035 Urine Protein Negative Negative Urine Ketones Negative Negative Urine Blood Negative Negative /uL Urine Nitrite Negative Negative Urine Bilirubin Negative Negative Urine Urobilinogen Normal Negative mg/dL Urine Leukocyte Esterase 1+ Negative /uL Urine RBC 3 0 - 4 /hpf Urine Microscopic WBC 23 H 0-5 /HPF Urine Squamous Epithelial Cells Few <5 /hpf Urine Bacteria Few H None Seen /hpf Urine Mucus Few None Seen Urine Glucose Normal Normal mg/dL Activated Partial Thromboplast Time 32.0 24.5-34.5 SEC Assessment/Plan Plan Patient is a 79-year-old female who presented to the hospital after fall in assisted living facility. She was recently in the hospital for the same and at that point she was found to have hip fracture. At that point the patient was seen by Cardiology and Orthopedics. At that point, the suggestion by Orthopedics was to proceed with hip surgery after cardiac clearance. Patient was risk stratified by Cardiology/us. Patient herself decided against any surgery at that point. At this time, the patient is reconsidering the offer for surgery. Cardiology is involved for cardiac catheterization with self-care and cardiac risk stratification. Patient herself is known to have coronary artery disease for which she is status post previous 3-V CABG with most recent PCI involving LAD 08/26/2024 on DAPT (Plavix/Aspirin). She is furthermore known to have baseline history ischemic cardiomyopathy with last known LVEF of 10% as per Echocardiogram findings 11/30/2024 which she is status post previous Biotronik biventricular AICD implantation. Recent device interrogation performed in November of 2024 during previous admission had revealed an overall appropriate functioning device. At present denies any active chest pains, shortness of breath, palpitations, dizziness, syncope, orthopnea, paroxysmal nocturnal dyspnea, or any further cardiac related symptoms. Not in acute distress. No JVD. Mucosa is pink and wet. No carotid bruit. Not using accessory muscles of breathing. Lungs are clear to auscultation. Cardiac: Regular, no thrill/gallop. Systolic murmur 2/6 in apex is heard. Abdomen is soft. Bowel sound is positive. No hepatomegaly. Extremities do not reveal edema. Dorsalis pedis is 2+ bilateral Past medical history includes hypertension, hyperlipidemia, coronary artery disease, history of CABG (2010), systolic heart failure, ischemic cardiomyopathy, gout, kidney stone, s/p ESWL, frequent UTI, history of CVA, Diverticulosis, COPD, Emphysema, s/p COVID, depression, Anxiety, GERD, history of appendectomy/hysterectomy/tonsillectomy, and history of BiV ICD (Biotronik) implantation. She is chronically wheelchair-bound. She was previously in hospice for heart failure. She is allergic to codeine. She quit smoking years ago. She is DNR. She also has diagnosis of parkinsonism. Cardiac catheterization of August 26, 2024 (performed in [facility]) revealed triple-vessel [place] coronary artery disease. PRINTING TABLE HAND of obtuse marginal. PRINTING TABLE HAND of RCA. Lad with 75% lesion and status post drug-eluting stent deployment. It is of note that there is patent SVG to obtuse marginal and also patent SVG to RCA. Cardiac catheterization of September 2020 revealed ejection fraction of 20%, PRINTING TABLE HAND of SVG to diagonal, patent TAN, patent SVG to OM, patent SVG to PDA and PRINTING TABLE HAND of RCA. Echocardiogram of November 30, 2024 revealed Dilated left ventricle, LVEF of around 10%. Pacing wire was seen in the right-sided chambers. There was mild mitral regurgitation. There was trace tricuspid regurgitation. As there was no good tricuspid regurgitation jet, right ventricular systolic pressure could not be estimated. Echocardiogram of September 04, 2024 reported: Dilated left ventricle. LVEF of 10%. Increased EDP. Pacing wire in right-sided chambers. Mild mitral regurgitation. As there was no good tricuspid regurgitation jet, right ventricular systolic pressure could not be estimated Echocardiogram of August 25, 2024 (performed in [facility]) for PE old ejection fraction of 20% Echocardiogram of reported: LV EF of 15-20%, biatrial enlargement, pacing wire in the right-sided chambers. Echocardiogram of November 22, 2023 revealed: Dilated left ventricle, LVEF of 10%, pacing wire and right-sided chambers, mild mitral regurgitation. Echocardiogram of August 28, 2023 revealed: Dilated left ventricle with significantly reduced systolic function. LVEF of 20%. Elevated LVEDP, dilated four chambers. Pacing wire was seen in right-sided chamber. [id number] MR. Echocardiogram of January 03, 2023 revealed ejection fraction of 20 to 25% and mild left ventricular enlargement Echocardiogram of March 25, 2023 (performed in the office) revealed four- chamber dilatation, LVEF of 20 to 25%, mild to moderate MR, mild TR, trace pulmonary valve insufficiency and right ventricular systolic pressure of 35 mmHg Echocardiogram of March 21, 2022 revealed ejection fraction of around 20%, mild MR/TR Echocardiogram of February 17, 2021 revealed dilated LV, LVEF around 25%, severe diffuse hypokinesis, increased LVEDP, dilated left and right atria, mild to moderate MR, mild TR. Echocardiogram of December 30, 2020 reported ejection fraction less than 20% and dilated left atrium. Echocardiogram of August 2020 revealed ejection fraction less than 25%, right atrial enlargement, left atrial enlargement and moderate MR. Creatinine: 1.04 - 1.29 Potassium: 4.8 - 4.[address] revealed: IMPRESSION: 1. Arthritic changes of both hips right slightly worse than left. 2. No fractures of the proximal femurs. 3. 4-5 mm calculus in the distal right ureter near the ureterovesical junction. (Series 2 images 75-78). 4. Bilateral laminectomy from L3 through S1. 5. Bony fusion of the facets bilaterally from L3 through S1. Hip x-ray revealed: FINDINGS/IMPRESSION: Nondisplaced fracture of the left greater trochanter. EKG reveals paced ventricular rhythm Patient is an 79-year old female known outside to our practice who initially presented with left-sided hip pain status post reported fall with diagnosis of left hip fracture. In previous hospitalization patient was not in favor of orthopedic surgery/management. At that point, Cardiology services were requested for cardiac pre-operative risk assessment. Patient herself is known to have coronary artery disease for which she is status post previous 3-V CABG with most recent PCI involving LAD 08/26/2024 on DAPT (Plavix/Aspirin). She is furthermore known to have baseline history ischemic cardiomyopathy with last known LVEF of 10% as per Echocardiogram findings 11/30/2024 which she is status post previous Biotronik biventricular AICD implantation. Recent device interrogation performed in November of 2024 during previous admission had revealed an overall appropriately functioning device. At present, initial 12-lead electrocardiogram had revealed an A-V paced rhythm. At present denies any active chest pains, shortness of breath, palpitations, dizziness, syncope, orthopnea, paroxysmal nocturnal dyspnea, or any further cardiac related symptoms. Evidence for left hip fracture? Coronary artery disease, status post previous CABG/PCI Presence of Biotronik biventricular AICD Ischemic cardiomyopathy, history of Hypertension, controlled Hyperlipidemia Acute cystitis CARDIAC SUGGESTIONS FOR MANAGEMENT: Recognizing the above mentioned, cardiac-monge the patient is considered compensated at this point. Cardiac-monge, Niya is considered moderate-risk patient for tentative plan of undergoing moderate-risk ORIF involving left hip fracture under appropriate intra-operative and post-operative cardiac/hemodynamic monitoring with further recommendation to avoid hypotension. You can hold aspirin/Plavix prior to procedure and restart after procedure. DAPT (Aspirin/Plavix) can be held Restart aspirin/Plavix, if there is no plan for surgery or the decision is made against surgery Proceed with GDMT for systolic heart failure as concurrent conditions permit Continue Toprol-XL/Entresto/Aldactone/Ranolazine/Atorvastatin Proceed with optimized medical therapy/risk factor modification Follow up orthopedic surgery recommendations Proceed with close observation for overt signs of fluid overload Proceed with strict intakes, outputs, and daily weights Proceed with close rate and rhythm surveillance Proceed with close hemodynamic surveillance Proceed with optimized blood pressure control Transfuse to sustain HGB level above 7.0 Sustain Magnesium level greater than 2.0 Sustain Potassium level greater than 4.0 Follow up renal function and electrolytes Management in telemetry Will proceed to follow from a cardiac perspective Further recommendations per clinical progression All available diagnostic labs, EKG's, and images were personally reviewed Prognosis: Guarded Thank you for consultation A total of 75 minutes was spent reviewing the patient record, examining the patient, making a diagnostic and therapeutic plan, discussing this plan with medical personnel, following up on diagnostic studies and following the patient for clinical stability excluding any and all procedures. At least 50% of this time was spent in direct, [id number] contact. Thank you for allowing me to participate in this patient's care. Further recommendations will depend on patient's clinical course. Please do not hesitate to contact me if you have any questions or concerns. This medical document was created using electronic medical record system with [employer] computerized dictation system. Although this document has been carefully reviewed, there may still be some phonetic and typographical errors. These areas are purely typographical due to the imperfection of the software programs, and do not reflect any compromise in the patient's medical care. Plan discussed with: Patient, Other (nurse) RODRIGUEZ LEBRON MD Feb 12, 2025 10:33
[2025-02-12] MEDS: MEROPENEM 1GM IVPB 50 ML IV SCH (14:12)
--- NOTE | 2025-02-12 15:36 | DVH ---
Procedure: [facility] BONE 3 PHASE Exam Date: 02/12/2025 09:53 AM Clinical History: rule out occult intertrochanteric left proximal femur fractu Comparison Study: None Nuclear Medicine Three-Phase Bone Scan Technique: Following the intravenous administration of 26.5 millicuries of technetium 99m MDP dynamic blood flow images and static and blood pool images were obtained. Delayed planar images were obtained at 3 ekta rs. Findings/ IMPRESSION: Increased activity is present in the left intertrochanteric femur region on flow and delayed static i mages. This is a nonspecific finding but may represent inflammatory changes associated with fracture .
[2025-02-12] MEDS: AMIODARONE HCL 200 MG TAB PO SCH (22:11)
[2025-02-13] VITALS (10 sets, daily range): BP systolic 101–138; BP diastolic 53–67; PULSE 60–72; RESP 17–19; TEMP 97.1–98; O2SAT 92–99
[2025-02-13 06:14] LABS: Anion Gap 11 (5-15); Carbon Dioxide 21 mmol/L (20-31); Chloride 107 mmol/L (98-107); Sodium 139 mmol/L (136-145)
[2025-02-13 06:20] LABS: BUN/Creatinine Ratio 42.0 (10.0-20.0)
[2025-02-13 06:52] LABS: Blood Urea Nitrogen 37 mg/dL (9-23); Calcium 8.1 mg/dL (8.7-10.4); Glucose 108 mg/dL (74-106); Potassium 6.1 mmol/L (3.5-5.1)
--- NOTE | 2025-02-13 08:22 | DVHPN2 ---
Progress Note - Dictate Date Seen: Feb 13, 2025 Medical Necessity Reason Pt with a Central, PICC or Fol: No vital signs Vital Sign Date Time Temp Pulse Resp B/P (MAP) Pulse Ox O2 Delivery O2 Flow Rate FiO2 02/13/25 06:46 74 18 105/70 02/13/25 05:00 98.0 99 98.0 02/12/25 19:53 Nasal Cannula* 1 24 Total Intake and Output 02/12/25 02/12/25 02/13/25 15:00 23:00 07:00 Intake Total 400 ml 750 ml Output Total 250 ml 240 ml Balance 150 ml 510 ml medications Current Medications Medications Dose Ordered Sig/Asha Route Start Time Stop Time Status Last Admin Dose Admin Albuterol 2.5 mg Q6HPRN PRN NEB 02/10/25 23:30 02/12/25 15:15 2.5 MG Ranolazine 500 mg BID PO 02/11/25 10:00 02/12/25 22:11 500 MG Atorvastatin Calcium 40 mg HS PO 02/11/25 22:00 02/12/25 22:10 40 MG Spironolactone 25 mg DAILY PO 02/11/25 10:00 02/12/25 09:41 25 MG Clopidogrel Bisulfate 75 mg DAILY PO 02/11/25 10:00 Ondansetron HCl 4 mg Q4HP PRN IV 02/10/25 23:30 02/13/25 06:15 4 MG Acetaminophen 650 mg Q6HP PRN PO 02/10/25 23:30 02/11/25 20:10 650 MG Nitroglycerin 0.4 mg Q5MINP PRN SL 02/10/25 23:30 Morphine Sulfate 2 mg Q30M PRN IV 02/10/25 23:30 Artificial Tears 1 drop [id number] PRN EACHEYE 02/11/25 15:00 Hydromorphone HCl 0.75 mg Q4HPRN PRN IV 02/12/25 07:45 02/13/25 06:16 0.75 MG Sacubitril/ Valsartan 1 tab BID PO 02/12/25 10:00 02/12/25 22:11 1 TAB Amiodarone HCl 100 mg HS PO 02/12/25 22:00 02/12/25 22:11 100 MG Metoprolol Succinate 25 mg DAILY PO 02/12/25 10:00 02/12/25 09:42 25 MG Meropenem 50 ml @ 17 mls/hr Q8HR IV 02/12/25 14:00 02/13/25 06:15 17 MLS/HR laboratory and microbiology Laboratory Tests 02/13/25 05:07 02/12/25 05:22 Test 02/13/25 05:07 Range/Units Serum Glucose 108 H 74-106 mg/dL Assessment/Plan Patient is a 79-year-old female who presented to the hospital after fall in assisted living facility. She was recently in the hospital for the same and at that point she was found to have hip fracture. At that point the patient was seen by Cardiology and Orthopedics. At that point, the suggestion by Orthopedics was to proceed with hip surgery after cardiac clearance. Patient was risk stratified by Cardiology/us. Patient herself decided against any surgery at that point. At this time, the patient is reconsidering the offer for surgery. Cardiology is involved for cardiac catheterization with self-care and cardiac risk stratification. Patient herself is known to have coronary artery disease for which she is status post previous 3-V CABG with most recent PCI involving LAD 08/26/2024 on DAPT (Plavix/Aspirin). She is furthermore known to have baseline history ischemic cardiomyopathy with last known LVEF of 10% as per Echocardiogram findings 11/30/2024 which she is status post previous Biotronik biventricular AICD implantation. Recent device interrogation performed in November of 2024 during previous admission had revealed an overall appropriate functioning device. At present denies any active chest pains, shortness of breath, palpitations, dizziness, syncope, orthopnea, paroxysmal nocturnal dyspnea, or any further cardiac related symptoms. Not in acute distress. No JVD. Mucosa is pink and wet. No carotid bruit. Not using accessory muscles of breathing. Lungs are clear to auscultation. Cardiac: Regular, no thrill/gallop. Systolic murmur 2/6 in apex is heard. Abdomen is soft. Bowel sound is positive. No hepatomegaly. Extremities do not reveal edema. Dorsalis pedis is 2+ bilateral Past medical history includes hypertension, hyperlipidemia, coronary artery disease, history of CABG (2010), systolic heart failure, ischemic cardiomyopathy, gout, kidney stone, s/p ESWL, frequent UTI, history of CVA, Diverticulosis, COPD, Emphysema, s/p COVID, depression, Anxiety, GERD, history of appendectomy/hysterectomy/tonsillectomy, and history of BiV ICD (Biotronik) implantation. She is chronically wheelchair-bound. She was previously in hospice for heart failure. She is allergic to codeine. She quit smoking years ago. She is DNR. She also has diagnosis of parkinsonism. Cardiac catheterization of August 26, 2024 (performed in [facility]) revealed triple-vessel [place] coronary artery disease. AWNING HANGER of obtuse marginal. AWNING HANGER of RCA. Lad with 75% lesion and status post drug-eluting stent deployment. It is of note that there is patent SVG to obtuse marginal and also patent SVG to RCA. Cardiac catheterization of September 2020 revealed ejection fraction of 20%, AWNING HANGER of SVG to diagonal, patent TAN, patent SVG to OM, patent SVG to PDA and AWNING HANGER of RCA. Echocardiogram of November 30, 2024 revealed Dilated left ventricle, LVEF of around 10%. Pacing wire was seen in the right-sided chambers. There was mild mitral regurgitation. There was trace tricuspid regurgitation. As there was no good tricuspid regurgitation jet, right ventricular systolic pressure could not be estimated. Echocardiogram of September 04, 2024 reported: Dilated left ventricle. LVEF of 10%. Increased EDP. Pacing wire in right-sided chambers. Mild mitral regurgitation. As there was no good tricuspid regurgitation jet, right ventricular systolic pressure could not be estimated Echocardiogram of August 25, 2024 (performed in [facility]) for PE old ejection fraction of 20% Echocardiogram of reported: LV EF of 15-20%, biatrial enlargement, pacing wire in the right-sided chambers. Echocardiogram of November 22, 2023 revealed: Dilated left ventricle, LVEF of 10%, pacing wire and right-sided chambers, mild mitral regurgitation. Echocardiogram of August 28, 2023 revealed: Dilated left ventricle with significantly reduced systolic function. LVEF of 20%. Elevated LVEDP, dilated four chambers. Pacing wire was seen in right-sided chamber. [id number] MR. Echocardiogram of January 03, 2023 revealed ejection fraction of 20 to 25% and mild left ventricular enlargement Echocardiogram of March 25, 2023 (performed in the office) revealed four- chamber dilatation, LVEF of 20 to 25%, mild to moderate MR, mild TR, trace pulmonary valve insufficiency and right ventricular systolic pressure of 35 mmHg Echocardiogram of March 21, 2022 revealed ejection fraction of around 20%, mild MR/TR Echocardiogram of February 17, 2021 revealed dilated LV, LVEF around 25%, severe diffuse hypokinesis, increased LVEDP, dilated left and right atria, mild to moderate MR, mild TR. Echocardiogram of December 30, 2020 reported ejection fraction less than 20% and dilated left atrium. Echocardiogram of August 2020 revealed ejection fraction less than 25%, right atrial enlargement, left atrial enlargement and moderate MR. Creatinine: 1.04 - 1.29 - 1.15 - 0.88 Potassium: 4.8 - 4.6 - 4.6 - 6.[address] revealed: IMPRESSION: 1. Arthritic changes of both hips right slightly worse than left. 2. No fractures of the proximal femurs. 3. 4-5 mm calculus in the distal right ureter near the ureterovesical junction. (Series 2 images 75-78). 4. Bilateral laminectomy from L3 through S1. 5. Bony fusion of the facets bilaterally from L3 through S1. Hip x-ray revealed: FINDINGS/IMPRESSION: Nondisplaced fracture of the left greater trochanter. Bone scan revealed: IMPRESSION: Increased activity is present in the left intertrochanteric femur region on flow and delayed static images. This is a nonspecific finding but may represent inflammatory changes associated with fracture. EKG reveals paced ventricular rhythm Patient is an 79-year old female known outside to our practice who initially presented with left-sided hip pain status post reported fall with diagnosis of left hip fracture. In previous hospitalization patient was not in favor of orthopedic surgery/management. At that point, Cardiology services were requested for cardiac pre-operative risk assessment. Patient herself is known to have coronary artery disease for which she is status post previous 3-V CABG with most recent PCI involving LAD 08/26/2024 on DAPT (Plavix/Aspirin). She is furthermore known to have baseline history ischemic cardiomyopathy with last known LVEF of 10% as per Echocardiogram findings 11/30/2024 which she is status post previous Biotronik biventricular AICD implantation. Recent device interrogation performed in November of 2024 during previous admission had revealed an overall appropriately functioning device. At present, initial 12-lead electrocardiogram had revealed an A-V paced rhythm. At present denies any active chest pains, shortness of breath, palpitations, dizziness, syncope, orthopnea, paroxysmal nocturnal dyspnea, or any further cardiac related symptoms. Evidence for left hip fracture? Coronary artery disease, status post previous CABG/PCI Presence of Biotronik biventricular AICD Ischemic cardiomyopathy, history of Hypertension, controlled Hyperlipidemia Acute cystitis CARDIAC SUGGESTIONS FOR MANAGEMENT: Recognizing the above mentioned, cardiac-monge the patient is considered compensated at this point. Cardiac-monge, Niya is considered moderate-risk patient for tentative plan of undergoing moderate-risk ORIF involving left hip fracture under appropriate intra-operative and post-operative cardiac/hemodynamic monitoring with further recommendation to avoid hypotension. You can hold aspirin/Plavix prior to procedure and restart after procedure. Ortho follow up DAPT (Aspirin/Plavix) can be held Restart aspirin/Plavix, if there is no plan for surgery or the decision is made against surgery Proceed with GDMT for systolic heart failure as concurrent conditions permit Continue Toprol-XL/Entresto/Aldactone/Ranolazine/Atorvastatin Proceed with optimized medical therapy/risk factor modification Follow up orthopedic surgery recommendations Proceed with close observation for overt signs of fluid overload Proceed with strict intakes, outputs, and daily weights Proceed with close rate and rhythm surveillance Proceed with close hemodynamic surveillance Proceed with optimized blood pressure control Transfuse to sustain HGB level above 7.0 Sustain Magnesium level greater than 2.0 Sustain Potassium level greater than 4.0 Follow up renal function and electrolytes Management in telemetry Will proceed to follow from a cardiac perspective Further recommendations per clinical progression All available diagnostic labs, EKG's, and images were personally reviewed Prognosis: Guarded A total of 55 minutes was spent reviewing the patient record, examining the patient, making a diagnostic and therapeutic plan, discussing this plan with medical personnel, following up on diagnostic studies and following the patient for clinical stability excluding any and all procedures. At least 50% of this time was spent in direct, [id number] contact. Thank you for allowing me to participate in this patient's care. Further recommendations will depend on patient's clinical course. Please do not hesitate to contact me if you have any questions or concerns. This medical document was created using electronic medical record system with [email or web address] dictation system. Although this document has been carefully reviewed, there may still be some phonetic and typographical errors. These areas are purely typographical due to the imperfection of the software programs, and do not reflect any compromise in the patient's medical care. Plan discussed with: Patient, Other (nurse) RODRIGUEZ LEBRON MD Feb 13, 2025 08:22
[2025-02-13] MEDS: DEXTROSE (50%) 50ML SYRG IV ONE (10:01)
[2025-02-13] MEDS: SODIUM ZIRCONIUM CYCL 10 GM PAK PO ONE (10:04)
[2025-02-13] MEDS: SODIUM BICARB 8.4% 50Meq/50ml SYR INJ IV ONE (10:04)
[2025-02-13] MEDS: CALCIUM GLUC 1,000mg/50ml-NS 50 ML IV ONE (10:04)
[2025-02-13] MEDS: InsuLIN REG 1unit/0.01ml Soln (100units/ml) IV ONE (10:20)
--- NOTE | 2025-02-13 10:51 | DVHPN2 ---
Subjective pain is better/had bm yesterday/ Reviewed: H&P Changes from previous H/P or p: No Changes General: Per HPI Objective Vitals Vital Signs Date Time Temp Pulse Resp B/P (MAP) Pulse Ox O2 Delivery O2 Flow Rate FiO2 02/13/25 10:27 66 17 108/66 02/13/25 09:51 99 02/13/25 09:45 Nasal Cannula 2.0 02/13/25 09:45 28 02/13/25 09:00 98.0 98.0 Intake/Output Intake and Output 02/13/25 07:00 Intake Total 1150 ml Output Total 490 ml Balance 660 ml Intake Oral 1050 ml IV Total 100 ml Output Urine Total 490 ml General Appearance: Alert, Oriented X3, Cooperative, No acute distress, mild distress Lungs: Clear to auscultation Cardiovascular: Normal S1, Normal S2 Abdomen: Normal bowel sounds, Soft, No tenderness, No hepatospenomegaly Musculoskeletal: Normal sensory function, Normal motor function Neuro: Normal speech, Strength at 5/5 X4 ext, Normal tone, Sensation intact, C ranial nerves 3-12 NL Psych/Mental Status: Mental status NL Medications Current Medications Medications Dose Ordered Sig/Asha Route Start Time Stop Time Status Last Admin Dose Admin Albuterol 2.5 mg Q6HPRN PRN NEB 02/10/25 23:30 02/13/25 09:45 2.5 MG Ranolazine 500 mg BID PO 02/11/25 10:00 02/13/25 10:03 500 MG Atorvastatin Calcium 40 mg HS PO 02/11/25 22:00 02/12/25 22:10 40 MG Spironolactone 25 mg DAILY PO 02/11/25 10:00 02/13/25 10:03 25 MG Clopidogrel Bisulfate 75 mg DAILY PO 02/11/25 10:00 02/13/25 10:04 75 MG Ondansetron HCl 4 mg Q4HP PRN IV 02/10/25 23:30 02/13/25 10:26 4 MG Acetaminophen 650 mg Q6HP PRN PO 02/10/25 23:30 02/11/25 20:10 650 MG Nitroglycerin 0.4 mg Q5MINP PRN SL 02/10/25 23:30 Morphine Sulfate 2 mg Q30M PRN IV 02/10/25 23:30 Artificial Tears 1 drop [id number] PRN EACHEYE 02/11/25 15:00 Hydromorphone HCl 0.75 mg Q4HPRN PRN IV 02/12/25 07:45 02/13/25 10:27 0.75 MG Sacubitril/ Valsartan 1 tab BID PO 02/12/25 10:00 02/13/25 10:03 1 TAB Amiodarone HCl 100 mg HS PO 02/12/25 22:00 02/12/25 22:11 100 MG Metoprolol Succinate 25 mg DAILY PO 02/12/25 10:00 02/12/25 09:42 25 MG Meropenem 50 ml @ 17 mls/hr Q8HR IV 02/12/25 14:00 02/13/25 06:15 17 MLS/HR Laboratory Results Laboratory Tests 02/12/25 05:22 02/13/25 05:07 Chemistry Test 02/13/25 05:07 Calcium Level 8.1 mg/dL (8.7-10.4) L Urinalysis Test 02/11/25 16:20 Urine Color Yellow (Yellow) Urine Clarity Clear (Clear) Urine pH 5.5 (5.0-9.0) Urine Specific [place] 1.022 (1.001-1.035) Urine Protein Negative (Negative) Urine Ketones Negative (Negative) Urine Blood Negative /uL (Negative) Urine Nitrite Negative (Negative) Urine Bilirubin Negative (Negative) Urine Urobilinogen Normal mg/dL (Negative) Urine Leukocyte Esterase 1+ /uL (Negative) Urine RBC 3 /hpf (0 - 4) Urine Microscopic WBC 23 /HPF (0-5) H Urine Squamous Epithelial Cells Few /hpf (<5) Urine Bacteria Few /hpf (None Seen) H Urine Mucus Few (None Seen) Urine Glucose Normal mg/dL (Normal) Microbiology Microbiology Date/Time Source Procedure Growth Status 02/11/25 08:00 Nose MRSA Screen - Final Complete Labs and/or images reviewed: Labs reviewed by me Assessment/Plan Assessment/Plan s/p fall left intertrochanteric fracture- per ortho high risk for surgery/med management/placement/physical therapy/pain control cardiomyopathy cad chronic systolic chf stable dvt prophylaxis hyperkalemia- meds adjusted/recheck Plan discussed with: Patient, Other Date of Service: Feb 13, 2025 Billing Provider: RUY MOSS MD Common Visit Codes: [id number] INP/OBS CARE(HIGH) RUY MOSS MD Feb 13, 2025 10:51
[2025-02-13] MEDS: OXYCODONE W/ ACETAMINOPHEN 5/325MG TABLET PO PRN (13:02)
--- NOTE | 2025-02-13 15:16 | DVHPN2 ---
Progress Note - Dictate Date Seen: Feb 13, 2025 Has the PT tested + for MRSA If YES, has PT been informed?: No Medical Necessity Reason Pt with a Central, PICC or Fol: No Subjective No new complaints vital signs Vital Sign Date Time Temp Pulse Resp B/P (MAP) Pulse Ox O2 Delivery O2 Flow Rate FiO2 02/13/25 12:54 97.5 62 19 101/60 (74) 96 97.5 02/13/25 09:45 Nasal Cannula 2.0 02/13/25 09:45 28 Total Intake and Output 02/12/25 02/12/25 02/13/25 15:00 23:00 07:00 Intake Total 400 ml 750 ml Output Total 250 ml 240 ml Balance 150 ml 510 ml medications Current Medications Medications Dose Ordered Sig/Asha Route Start Time Stop Time Status Last Admin Dose Admin Ranolazine 500 mg BID PO 02/11/25 10:00 02/13/25 10:03 500 MG Atorvastatin Calcium 40 mg HS PO 02/11/25 22:00 02/12/25 22:10 40 MG Clopidogrel Bisulfate 75 mg DAILY PO 02/11/25 10:00 02/13/25 10:04 75 MG Acetaminophen 650 mg Q6HP PRN PO 02/10/25 23:30 02/11/25 20:10 650 MG Artificial Tears 1 drop [id number] PRN EACHEYE 02/11/25 15:00 Amiodarone HCl 100 mg HS PO 02/12/25 22:00 02/12/25 22:11 100 MG Metoprolol Succinate 25 mg DAILY PO 02/12/25 10:00 02/12/25 09:42 25 MG Meropenem 50 ml @ 17 mls/hr Q8HR IV 02/12/25 14:00 02/13/25 14:31 17 MLS/HR Oxycodone/ Acetaminophen 1 tab Q6HP PRN PO 02/13/25 12:45 02/13/25 13:02 1 TAB Ondansetron HCl 4 mg Q4HPRN PRN IV 02/13/25 12:45 objective Alert and oriented x4 Painful range of motion left hip No deformity No distal edema Distal neurovascularly intact Recent bone scan suggest that she does in fact have a complete nondisplaced intertrochanteric fracture laboratory and microbiology Laboratory Tests 02/13/25 11:10 02/13/25 05:07 02/12/25 05:22 Test 02/13/25 05:07 Range/Units Serum Glucose 108 H 74-106 mg/dL Assessment/Plan Left proximal femur nondisplaced intertrochanteric fracture Extensive comorbidities Plan: My recommendations are for cephalomedullary nail. I explained the diagnosis, prognosis, treatment options and risks which include but are not limited to infection, bleeding, transfusion, nerve injury, fixation failure, DVT, PE, and even . Patient is high risk with multiple comorbidities she has undergone an detailed cardiology evaluation and Dr. Mercado feels the patient is optimized for surgery his recommendations are in the chart in detail. NPO post midnight. Ancef preop Plan discussed with: Patient LAURYN ROBIN MD Feb 13, 2025 15:16
[2025-02-13] MEDS: HYDROMORPHONE HCL 1 MG/ML INJ IV PRN (16:21)
[2025-02-13] MEDS: ONDANSETRON HCL 4 MG/2 ML VIAL IV PRN (16:21)
[2025-02-13] MEDS ORDERED: HYDROmorphone HCL 2 MG/ML VL/or syr IV PRN (17:00)
[2025-02-13] MEDS ORDERED: ONDANSETRON HCL 4 MG/2 ML VIAL IV PRN (17:00)
--- NOTE | 2025-02-13 17:40 | DVH ---
CHEST RADIOGRAPH Indication: PRE-OP Technique: Single frontal view of the chest was obtained Comparison: XY CHEST XRAY 1 VIEW on DOS: 02/05/25, XY CHEST PORTABLE on DOS: 01/14/25, XY CHEST PORTABL E on DOS: 01/08/25 FINDINGS: Lines and Tubes: Maker in place 02/05/2025 Lungs: No focal consolidation. Pleura: No effusion. No pneumothorax. Cardiomediastinal contours: Unremarkable Bones: No acute osseous abnormality. IMPRESSION: 1. No acute cardiopulmonary disease. 2. Significant change from 02/05/2025
[2025-02-13] MEDS: ACETAMINOPHEN IV 1000 MG/100ML (10MG/ML) IV ONE (17:50)
[2025-02-14] VITALS (10 sets, daily range): BP systolic 98–134; BP diastolic 54–81; PULSE 63–90; RESP 17–41; TEMP 97–98; O2SAT 94–99
[2025-02-14 09:36] LABS: Hematocrit 41.0 % (36.0-46.0); Hemoglobin 13.3 g/dL (12.2-16.2); Mean Corpuscular Hemoglobin 28.7 pg (28.0-32.0); Mean Corpuscular Volume 88.3 fL (80.0-100.0); Nucleated Red Blood Cells % 0.0 %
[2025-02-14 09:45] LABS: Chloride 107 mmol/L (98-107)
[2025-02-14 09:46] LABS: Anion Gap 7 (5-15); Carbon Dioxide 28 mmol/L (20-31); Potassium 4.4 mmol/L (3.5-5.1); Sodium 142 mmol/L (136-145)
[2025-02-14 09:47] LABS: Calcium 9.5 mg/dL (8.7-10.4)
[2025-02-14 09:52] LABS: BUN/Creatinine Ratio 19.2 (10.0-20.0); Blood Urea Nitrogen 19 mg/dL (9-23); Glucose 92 mg/dL (74-106); Magnesium 2.2 mg/dL (1.6-2.6)
--- NOTE | 2025-02-14 12:48 | DVHPN2 ---
Subjective Complains of pain in the hip Reviewed: H&P Changes from previous H/P or p: Changes General: Per HPI Objective Vitals Vital Signs Date Time Temp Pulse Resp B/P (MAP) Pulse Ox O2 Delivery O2 Flow Rate FiO2 02/14/25 10:30 69 14 129/66 02/14/25 10:00 98 Nasal Cannula* 2 28 02/14/25 08:34 97.2 97.2 Intake/Output Intake and Output 02/14/25 06:59 Intake Total 550 ml Output Total 1150 ml Balance -600 ml Intake Oral 400 ml IV Total 150 ml Output Urine Total 1150 ml General Appearance: Alert, Oriented X3, Cooperative, No acute distress, mild distress Lungs: Clear to auscultation Cardiovascular: Normal S1, Normal S2 Abdomen: Normal bowel sounds, Soft, No tenderness, No hepatospenomegaly Musculoskeletal: Normal sensory function, Normal motor function Neuro: Normal speech, Strength at 5/5 X4 ext, Normal tone, Sensation intact, C ranial nerves 3-12 NL Psych/Mental Status: Mental status NL Medications Current Medications Medications Dose Ordered Sig/Asha Route Start Time Stop Time Status Last Admin Dose Admin Ranolazine 500 mg BID PO 02/11/25 10:00 02/13/25 21:48 500 MG Atorvastatin Calcium 40 mg HS PO 02/11/25 22:00 02/13/25 21:49 40 MG Clopidogrel Bisulfate 75 mg DAILY PO 02/11/25 10:00 02/13/25 10:04 75 MG Acetaminophen 650 mg Q6HP PRN PO 02/10/25 23:30 02/11/25 20:10 650 MG Artificial Tears 1 drop [id number] PRN EACHEYE 02/11/25 15:00 Amiodarone HCl 100 mg HS PO 02/12/25 22:00 02/13/25 21:48 100 MG Metoprolol Succinate 25 mg DAILY PO 02/12/25 10:00 02/12/25 09:42 25 MG Meropenem 50 ml @ 17 mls/hr Q8HR IV 02/12/25 14:00 02/14/25 05:51 17 MLS/HR Oxycodone/ Acetaminophen 1 tab Q6HP PRN PO 02/13/25 12:45 02/13/25 13:02 1 TAB Ondansetron HCl 4 mg Q4HPRN PRN IV 02/13/25 12:45 02/14/25 10:01 4 MG Hydromorphone HCl 0.5 mg Q4HPRN PRN IV 02/13/25 16:00 02/14/25 10:00 0.5 MG Laboratory Results Laboratory Tests 02/14/25 09:22 Chemistry Test 02/14/25 09:22 Calcium Level 9.5 mg/dL (8.7-10.4) Magnesium Level 2.2 mg/dL (1.6-2.6) Urinalysis Test 02/11/25 16:20 Urine Color Yellow (Yellow) Urine Clarity Clear (Clear) Urine pH 5.5 (5.0-9.0) Urine Specific [place] 1.022 (1.001-1.035) Urine Protein Negative (Negative) Urine Ketones Negative (Negative) Urine Blood Negative /uL (Negative) Urine Nitrite Negative (Negative) Urine Bilirubin Negative (Negative) Urine Urobilinogen Normal mg/dL (Negative) Urine Leukocyte Esterase 1+ /uL (Negative) Urine RBC 3 /hpf (0 - 4) Urine Microscopic WBC 23 /HPF (0-5) H Urine Squamous Epithelial Cells Few /hpf (<5) Urine Bacteria Few /hpf (None Seen) H Urine Mucus Few (None Seen) Urine Glucose Normal mg/dL (Normal) Microbiology Microbiology Date/Time Source Procedure Growth Status 02/11/25 08:00 Nose MRSA Screen - Final Complete Assessment/Plan Assessment/Plan Left intertrochanteric fracture due to a mechanical fall History of ischemic cardiomyopathy last ejection fraction 10% Coronary artery disease status post CABG and PCI History of ICD Hypertension Mixed hyperlipidemia UTI Hyperkalemia Anxiety COPD History of CVA CKD stage 2 to 3 Plan Surgery is planned for today Cardiology saw the patient and recommended the patient is optimized with the known risks Pain control as needed IV antibiotics with the meropenem for UTI Monitor closely Hold Plavix for the surgery Plan discussed with: Patient My Orders Orders - YENNY FRAIRE MD Procedure Category Date Status Time Hydromorphone Hcl Inj PHA 02/13/25 In Process (Dilaudid Injectio 16:00 Date of Service: Feb 14, 2025 Billing Provider: YENNY FRAIRE MD Common Visit Codes: [id number] INP/OBS CARE(HIGH) YENNY FRAIRE MD Feb 14, 2025 12:48
[2025-02-14] MEDS ORDERED: LIDOCAINE 1% INJ PF 5ML AMP ONE ×2 (12:49→13:08)
[2025-02-14] MEDS ORDERED: KETOROLAC TROMETH 30 MG/ML 1ML VIAL ONE (12:49)
[2025-02-14] MEDS ORDERED: ONDANSETRON HCL 4 MG/2 ML VIAL ONE (12:49)
[2025-02-14] MEDS ORDERED: GLYCOPYRROLATE 0.2 MG/ML 1ML VIAL ONE (12:50)
[2025-02-14] MEDS ORDERED: PROPOFOL 10 MG/ML 20 ML IV ONE ×3 (12:50→16:18)
[2025-02-14] MEDS ORDERED: PHENYLEPHRINE HCL 10 MG/ML VL ONE (13:46)
[2025-02-14] MEDS ORDERED: SODIUM CHLORIDE LOCK 10 ML ONE ×3 (13:46→15:56)
--- NOTE | 2025-02-14 14:25 | DVHOP2 ---
Operative Report - 2 Report Details Date: 02/14/25 Preop Diagnosis: Left proximal femur intertrochanteric fracture Postop Diagnosis: Left proximal femur intertrochanteric fracture Surgeon: Lauryn Robin MD Anesthesiologist: David Leger CRNA Anesthesia: Regional Implant: Marie cephalomedullary nail with 90 mm hip screw and 36 mm distal locking screw Consent: The patient was informed of the risks and benefits of the procedure. These include but are not limited to complications of anesthesia, postoperative infection, incomplete relief of symptoms, recurrence of symptoms, damage to blood vessels, nerves and tendons, deep venous thrombosis, pulmonary embolism and possible need for repeat surgery in the future. Complications: None Estimated Blood Loss: 20 cc Fluids: See anesthesia record Findings: Nondisplaced left proximal femur intertrochanteric fracture Indications for Surgery: Potentially unstable hip fracture with persistent pain and patient inability to transfer and ambulate Name of Procedure Performed Left proximal femur intertrochanteric fracture cephalomedullary nail, C-arm fluoroscopy Procedure Details Procedure Details: The patient was brought to the operating room and placed on the [place] table in the supine position. The patient was given nerve block and conscious sedation anesthetic. Preop patient received IV Ancef. Nonoperative extremity was placed in the well-leg cole. Operative extremity placed in boot traction. Position verified with C-arm fluoroscopy in AP and lateral views. Surgical timeout performed verifying patient, laterality and procedure. Operative extremity was prepped and draped in sterile fashion. Incision was made proximal to the greater trochanter then I incised the fascia. I passed a guidewire into the proximal femur and adjusted the position based on AP and lateral views with C arm. I used the soft tissue protector and reamed over the guidewire then guidewire was removed. I then inserted the previously templated nail until appropriate depth was reached based on C-arm fluoroscopy. I then passed the hip screw cannula to skin then made skin and fascial incision and passed it to bone. I inserted a guidewire into the proximal femoral neck and head and again adjusted position based on C arm. I measured for length. I then reamed and inserted the hip screw. Guidewire and cannula were removed. I tightened the proximal locking device and then turned back half turn to allow it to slide. I then used the distal locking screw cannula through the static hole passing it to skin and making skin and fascial incision then passing it to bone. I drilled and measured length off the drill bit and inserted distal locking screw. I obtain C arm views AP and lateral throughout the length of the construct to verify fracture reduction and hardware placement. Wounds were irrigated with normal saline. Fascial tissue closed with 0 Vicryl. Subcu closed with 2-0 Vicryl. Skin closed with yajaira. Wounds dressed sterilely. Patient tolerated procedure well was brought to recovery in stable condition. Condition Stable Disposition Still a Patient LAURYN ROBIN MD Feb 14, 2025 14:25
[2025-02-14] MEDS ORDERED: fentaNYL CITRATE 100 MCG/2 ML VL IV PRN (14:45)
[2025-02-14] MEDS ORDERED: FLUMAZENIL 0.1 MG/ML INJ 10ML MDV IV PRN (14:45)
[2025-02-14] MEDS ORDERED: NALOXONE HCL 0.4 MG/ML VIAL IV PRN (14:45)
[2025-02-14] MEDS ORDERED: ONDANSETRON HCL 4 MG/2 ML VIAL IV PRN (14:45)
[2025-02-14] MEDS ORDERED: hydrALAZINE HCL 20 MG/ML VL IV PRN (14:45)
[2025-02-14] MEDS ORDERED: HYDROmorphone HCL 2 MG/ML VL/or syr IV PRN (14:45)
[2025-02-14] MEDS: HYDROmorphone HCL 2 MG/ML VL/or syr ONE (14:45)
[2025-02-14] MEDS ORDERED: BUPIVACAINE/DEXTROSE MPF 0.75% 2 ML AMP IT ONE (15:21)
[2025-02-14] MEDS ORDERED: METOPROLOL TARTRATE 1MG/1ML-5ML VIAL IV ONE (15:21)
--- NOTE | 2025-02-14 16:05 | DVHPN2 ---
Progress Note - Dictate Date Seen: Feb 14, 2025 Has the PT tested + for MRSA If YES, has PT been informed?: No Medical Necessity Reason Pt with a Central, PICC or Fol: No vital signs Vital Sign Date Time Temp Pulse Resp B/P (MAP) Pulse Ox O2 Delivery O2 Flow Rate FiO2 02/14/25 15:39 66 12 114/50 (71) 97 02/14/25 15:10 Nasal Cannula 3.0 02/14/25 14:24 97.0 97.0 02/14/25 10:00 28 Total Intake and Output 02/13/25 02/13/25 02/14/25 15:00 23:00 07:00 Intake Total 100 ml 400 ml 50 ml Output Total 250 ml 900 ml Balance 100 ml 150 ml -850 ml medications Current Medications Medications Dose Ordered Sig/Asha Route Start Time Stop Time Status Last Admin Dose Admin Ranolazine 500 mg BID PO 02/11/25 10:00 02/13/25 21:48 500 MG Atorvastatin Calcium 40 mg HS PO 02/11/25 22:00 02/13/25 21:49 40 MG Acetaminophen 650 mg Q6HP PRN PO 02/10/25 23:30 02/11/25 20:10 650 MG Artificial Tears 1 drop [id number] PRN EACHEYE 02/11/25 15:00 Amiodarone HCl 100 mg HS PO 02/12/25 22:00 02/13/25 21:48 100 MG Metoprolol Succinate 25 mg DAILY PO 02/12/25 10:00 02/12/25 09:42 25 MG Meropenem 50 ml @ 17 mls/hr Q8HR IV 02/12/25 14:00 02/14/25 05:51 17 MLS/HR Oxycodone/ Acetaminophen 1 tab Q6HP PRN PO 02/13/25 12:45 02/13/25 13:02 1 TAB Ondansetron HCl 4 mg Q4HPRN PRN IV 02/13/25 12:45 02/14/25 10:01 4 MG Hydromorphone HCl 0.5 mg Q4HPRN PRN IV 02/13/25 16:00 02/14/25 10:00 0.5 MG Lactated Ringer's 1,000 ml @ 100 mls/hr Q10H IV 02/14/25 14:30 Sodium Chloride 10 ml Q8HR IV 02/14/25 22:00 Enoxaparin Sodium 40 mg DAILY SC 02/15/25 10:00 Cefazolin Sodium/ Dextrose 50 ml @ 50 mls/hr Q8HR IV 02/14/25 22:00 02/15/25 06:59 Oxycodone HCl 10 mg ONCE PRN PO 02/14/25 14:45 laboratory and microbiology Laboratory Tests 02/14/25 09:22 Test 02/14/25 09:22 Range/Units Serum Glucose 92 74-106 mg/dL Assessment/Plan s/p ortho surgery Patient is a 79-year-old female who presented to the hospital after fall in assisted living facility. She was recently in the hospital for the same and at that point she was found to have hip fracture. At that point the patient was seen by Cardiology and Orthopedics. At that point, the suggestion by Orthopedics was to proceed with hip surgery after cardiac clearance. Patient was risk stratified by Cardiology/us. Patient herself decided against any surgery at that point. At this time, the patient is reconsidering the offer for surgery. Cardiology is involved for cardiac catheterization with self-care and cardiac risk stratification. Patient herself is known to have coronary artery disease for which she is status post previous 3-V CABG with most recent PCI involving LAD 08/26/2024 on DAPT (Plavix/Aspirin). She is furthermore known to have baseline history ischemic cardiomyopathy with last known LVEF of 10% as per Echocardiogram findings 11/30/2024 which she is status post previous Biotronik biventricular AICD implantation. Recent device interrogation performed in November of 2024 during previous admission had revealed an overall appropriate functioning device. At present denies any active chest pains, shortness of breath, palpitations, dizziness, syncope, orthopnea, paroxysmal nocturnal dyspnea, or any further cardiac related symptoms. Not in acute distress. No JVD. Mucosa is pink and wet. No carotid bruit. Not using accessory muscles of breathing. Lungs are clear to auscultation. Cardiac: Regular, no thrill/gallop. Systolic murmur 2/6 in apex is heard. Abdomen is soft. Bowel sound is positive. No hepatomegaly. Extremities do not reveal edema. Dorsalis pedis is 2+ bilateral Past medical history includes hypertension, hyperlipidemia, coronary artery disease, history of CABG (2010), systolic heart failure, ischemic cardiomyopathy, gout, kidney stone, s/p ESWL, frequent UTI, history of CVA, Diverticulosis, COPD, Emphysema, s/p COVID, depression, Anxiety, GERD, history of appendectomy/hysterectomy/tonsillectomy, and history of BiV ICD (Biotronik) implantation. She is chronically wheelchair-bound. She was previously in hospice for heart failure. She is allergic to codeine. She quit smoking years ago. She is DNR. She also has diagnosis of parkinsonism. Cardiac catheterization of August 26, 2024 (performed in [facility]) revealed triple-vessel [place] coronary artery disease. MECHANICAL INSPECTOR of obtuse marginal. MECHANICAL INSPECTOR of RCA. Lad with 75% lesion and status post drug-eluting stent deployment. It is of note that there is patent SVG to obtuse marginal and also patent SVG to RCA. Cardiac catheterization of September 2020 revealed ejection fraction of 20%, MECHANICAL INSPECTOR of SVG to diagonal, patent TAN, patent SVG to OM, patent SVG to PDA and MECHANICAL INSPECTOR of RCA. Echocardiogram of November 30, 2024 revealed Dilated left ventricle, LVEF of around 10%. Pacing wire was seen in the right-sided chambers. There was mild mitral regurgitation. There was trace tricuspid regurgitation. As there was no good tricuspid regurgitation jet, right ventricular systolic pressure could not be estimated. Echocardiogram of September 04, 2024 reported: Dilated left ventricle. LVEF of 10%. Increased EDP. Pacing wire in right-sided chambers. Mild mitral regurgitation. As there was no good tricuspid regurgitation jet, right ventricular systolic pressure could not be estimated Echocardiogram of August 25, 2024 (performed in [facility]) for PE old ejection fraction of 20% Echocardiogram of reported: LV EF of 15-20%, biatrial enlargement, pacing wire in the right-sided chambers. Echocardiogram of November 22, 2023 revealed: Dilated left ventricle, LVEF of 10%, pacing wire and right-sided chambers, mild mitral regurgitation. Echocardiogram of August 28, 2023 revealed: Dilated left ventricle with significantly reduced systolic function. LVEF of 20%. Elevated LVEDP, dilated four chambers. Pacing wire was seen in right-sided chamber. Ejic-df-toxmizli MR. Echocardiogram of January 03, 2023 revealed ejection fraction of 20 to 25% and mild left ventricular enlargement Echocardiogram of March 25, 2023 (performed in the office) revealed four- chamber dilatation, LVEF of 20 to 25%, mild to moderate MR, mild TR, trace pulmonary valve insufficiency and right ventricular systolic pressure of 35 mmHg Echocardiogram of March 21, 2022 revealed ejection fraction of around 20%, mild MR/TR Echocardiogram of February 17, 2021 revealed dilated LV, LVEF around 25%, severe diffuse hypokinesis, increased LVEDP, dilated left and right atria, mild to moderate MR, mild TR. Echocardiogram of December 30, 2020 reported ejection fraction less than 20% and dilated left atrium. Echocardiogram of August 2020 revealed ejection fraction less than 25%, right atrial enlargement, left atrial enlargement and moderate MR. Creatinine: 1.04 - 1.29 - 1.15 - 0.88 - 0.99 Potassium: 4.8 - 4.6 - 4.6 - 6.1 - 4.0 - 4.[address] revealed: IMPRESSION: 1. Arthritic changes of both hips right slightly worse than left. 2. No fractures of the proximal femurs. 3. 4-5 mm calculus in the distal right ureter near the ureterovesical junction. (Series 2 images 75-78). 4. Bilateral laminectomy from L3 through S1. 5. Bony fusion of the facets bilaterally from L3 through S1. Hip x-ray revealed: FINDINGS/IMPRESSION: Nondisplaced fracture of the left greater trochanter. Bone scan revealed: IMPRESSION: Increased activity is present in the left intertrochanteric femur region on flow and delayed static images. This is a nonspecific finding but may represent inflammatory changes associated with fracture. Chest xry revealed: IMPRESSION: 1. No acute cardiopulmonary disease. 2. Significant change from 02/05/2025 EKG reveals paced ventricular rhythm Patient is an 79-year old female known outside to our practice who initially presented with left-sided hip pain status post reported fall with diagnosis of left hip fracture. In previous hospitalization patient was not in favor of orthopedic surgery/management. At that point, Cardiology services were requested for cardiac pre-operative risk assessment. Patient herself is known to have coronary artery disease for which she is status post previous 3-V CABG with most recent PCI involving LAD 08/26/2024 on DAPT (Plavix/Aspirin). She is furthermore known to have baseline history ischemic cardiomyopathy with last known LVEF of 10% as per Echocardiogram findings 11/30/2024 which she is status post previous Biotronik biventricular AICD implantation. Recent device interrogation performed in November of 2024 during previous admission had revealed an overall appropriately functioning device. At present, initial 12-lead electrocardiogram had revealed an A-V paced rhythm. At present denies any active chest pains, shortness of breath, palpitations, dizziness, syncope, orthopnea, paroxysmal nocturnal dyspnea, or any further cardiac related symptoms. Evidence for left hip fracture? Coronary artery disease, status post previous CABG/PCI Presence of Biotronik biventricular AICD Ischemic cardiomyopathy, history of Hypertension, controlled Hyperlipidemia Acute cystitis s/p ortho surgery CARDIAC SUGGESTIONS FOR MANAGEMENT: Recognizing the above mentioned, cardiac-monge the patient is considered compensated at this point. Cardiac-monge, Niya is considered moderate-risk patient for tentative plan of undergoing moderate-risk ORIF involving left hip fracture under appropriate intra-operative and post-operative cardiac/hemodynamic monitoring with further recommendation to avoid hypotension. You can hold aspirin/Plavix prior to procedure and restart after procedure. s/p ortho surgery without immediate complication. Ortho follow up DAPT (Aspirin/Plavix) can be held Restart aspirin/Plavix, if there is no plan for surgery or the decision is made against surgery Proceed with GDMT for systolic heart failure as concurrent conditions permit Continue Toprol-XL/Entresto/Aldactone/Ranolazine/Atorvastatin Proceed with optimized medical therapy/risk factor modification Follow up orthopedic surgery recommendations Proceed with close observation for overt signs of fluid overload Proceed with strict intakes, outputs, and daily weights Proceed with close rate and rhythm surveillance Proceed with close hemodynamic surveillance Proceed with optimized blood pressure control Transfuse to sustain HGB level above 7.0 Sustain Magnesium level greater than 2.0 Sustain Potassium level greater than 4.0 Follow up renal function and electrolytes Management in telemetry Will proceed to follow from a cardiac perspective Further recommendations per clinical progression All available diagnostic labs, EKG's, and images were personally reviewed Prognosis: Guarded A total of 55 minutes was spent reviewing the patient record, examining the patient, making a diagnostic and therapeutic plan, discussing this plan with medical personnel, following up on diagnostic studies and following the patient for clinical stability excluding any and all procedures. At least 50% of this time was spent in direct, [id number] contact. Thank you for allowing me to participate in this patient's care. Further recommendations will depend on patient's clinical course. Please do not hesitate to contact me if you have any questions or concerns. This medical document was created using electronic medical record system with [employer] ([employer]) computerized dictation system. Although this document has been carefully reviewed, there may still be some phonetic and typographical errors. These areas are purely typographical due to the imperfection of the software programs, and do not reflect any compromise in the patient's medical care. Dietary Evaluation Review Recommendations by RD: Dietary education by RD Comments: 1) Advance to 60g CCHO cardiac diet when medically feasible 2) Encourage optimal PO intake 3) Collect HbA1c 4) Refer to outpatient RD/CDCES for weight management 5) Follow-up with orthopedic surgeon, cardiology, pulmonology, and nephrology 6) Continue to monitor I&O, labs, and skin integrity Expected Outcomes/Goals: 1) labs to improve 2) diet to advance 3) gradual wt loss 4) f/u in 3-5 days Plan discussed with: Other (nurse) RODRIGUEZ LEBRON MD Feb 14, 2025 16:05
[2025-02-14] MEDS: BUPIVACAINE HCL 50 ML ONE (17:38)
[2025-02-14] MEDS: ceFAZolin 2 GM/D5W50ml 50 ML IV ONE (17:38)
--- NOTE | 2025-02-14 17:38 | DVH ---
C-ARM FLUOROSCOPY: PROCEDURE: Fluoroscopy for intraoperative left hip FLUOROSCOPY TIME: 43.6 seconds DAP 7.1 mgy FINDINGS: Film not submitted. IMPRESSION: 1. Please refer to surgical report for detailed findings.
[2025-02-14] MEDS: LACTATED RINGER'S 1,000 ML IV SCH (17:39)
[2025-02-14] MEDS: ACETAMINOPHEN IV 1000 MG/100ML (10MG/ML) IV ONE (17:39)
--- NOTE | 2025-02-14 17:39 | DVH ---
RIGHTLEFT HIP RADIOGRAPH. CLINICAL INDICATION: ORIF LT HIP TECHNIQUE: 4 views of the left hip were obtained. FINDINGS: Intraoperative films of the left hip submitted, please refer to surgical report. IMPRESSION: 1. Intraoperative views of the left hip, please refer to surgical report
[2025-02-14] MEDS: ceFAZolin 2 GM/D5W50ml 50 ML IV SCH (21:41)
[2025-02-14] MEDS: SODIUM CHLOR 0.9% PF (SALINE LOCK) 10ML VIAL/SYR IV SCH (21:58)
[2025-02-15] VITALS (15 sets, daily range): BP systolic 103–130; BP diastolic 54–77; PULSE 72–90; RESP 16–21; TEMP 97.8–99.4; O2SAT 94–100
--- NOTE | 2025-02-15 08:06 | DVHPN2 ---
Progress Note - Dictate Date Seen: Feb 15, 2025 Has the PT tested + for MRSA If YES, has PT been informed?: No Medical Necessity Reason Pt with a Central, PICC or Fol: No vital signs Vital Sign Date Time Temp Pulse Resp B/P (MAP) Pulse Ox O2 Delivery O2 Flow Rate FiO2 02/15/25 05:00 97.8 79 17 114/71 (85) 96 97.8 02/14/25 20:20 Nasal Cannula* 2 28 Total Intake and Output 02/14/25 02/14/25 02/15/25 15:00 23:00 07:00 Intake Total 100 ml 50 ml 0 ml Balance 100 ml 50 ml 0 ml medications Current Medications Medications Dose Ordered Sig/Asha Route Start Time Stop Time Status Last Admin Dose Admin Ranolazine 500 mg BID PO 02/11/25 10:00 02/14/25 21:34 500 MG Atorvastatin Calcium 40 mg HS PO 02/11/25 22:00 02/14/25 21:34 40 MG Acetaminophen 650 mg Q6HP PRN PO 02/10/25 23:30 02/11/25 20:10 650 MG Artificial Tears 1 drop [id number] PRN EACHEYE 02/11/25 15:00 Amiodarone HCl 100 mg HS PO 02/12/25 22:00 02/14/25 21:35 100 MG Metoprolol Succinate 25 mg DAILY PO 02/12/25 10:00 02/12/25 09:42 25 MG Meropenem 50 ml @ 17 mls/hr Q8HR IV 02/12/25 14:00 02/15/25 06:17 17 MLS/HR Oxycodone/ Acetaminophen 1 tab Q6HP PRN PO 02/13/25 12:45 02/14/25 18:09 1 TAB Ondansetron HCl 4 mg Q4HPRN PRN IV 02/13/25 12:45 02/15/25 04:22 4 MG Hydromorphone HCl 0.5 mg Q4HPRN PRN IV 02/13/25 16:00 02/15/25 04:23 0.5 MG Lactated Ringer's 1,000 ml @ 100 mls/hr Q10H IV 02/14/25 14:30 02/15/25 02:19 100 MLS/HR Sodium Chloride 10 ml Q8HR IV 02/14/25 22:00 02/15/25 06:25 10 ML Enoxaparin Sodium 40 mg DAILY SC 02/15/25 10:00 Oxycodone HCl 10 mg ONCE PRN PO 02/14/25 14:45 laboratory and microbiology Laboratory Tests 02/14/25 09:22 Test 02/14/25 09:22 Range/Units Serum Glucose 92 74-106 mg/dL Assessment/Plan s/p ortho surgery Patient is a 79-year-old female who presented to the hospital after fall in assisted living facility. She was recently in the hospital for the same and at that point she was found to have hip fracture. At that point the patient was seen by Cardiology and Orthopedics. At that point, the suggestion by Orthopedics was to proceed with hip surgery after cardiac clearance. Patient was risk stratified by Cardiology/us. Patient herself decided against any surgery at that point. At this time, the patient is reconsidering the offer for surgery. Cardiology is involved for cardiac catheterization with self-care and cardiac risk stratification. Patient herself is known to have coronary artery disease for which she is status post previous 3-V CABG with most recent PCI involving LAD 08/26/2024 on DAPT (Plavix/Aspirin). She is furthermore known to have baseline history ischemic cardiomyopathy with last known LVEF of 10% as per Echocardiogram findings 11/30/2024 which she is status post previous Biotronik biventricular AICD implantation. Recent device interrogation performed in November of 2024 during previous admission had revealed an overall appropriate functioning device. At present denies any active chest pains, shortness of breath, palpitations, dizziness, syncope, orthopnea, paroxysmal nocturnal dyspnea, or any further cardiac related symptoms. Not in acute distress. No JVD. Mucosa is pink and wet. No carotid bruit. Not using accessory muscles of breathing. Lungs are clear to auscultation. Cardiac: Regular, no thrill/gallop. Systolic murmur 2/6 in apex is heard. Abdomen is soft. Bowel sound is positive. No hepatomegaly. Extremities do not reveal edema. Dorsalis pedis is 2+ bilateral Past medical history includes hypertension, hyperlipidemia, coronary artery disease, history of CABG (2010), systolic heart failure, ischemic cardiomyopathy, gout, kidney stone, s/p ESWL, frequent UTI, history of CVA, Diverticulosis, COPD, Emphysema, s/p COVID, depression, Anxiety, GERD, history of appendectomy/hysterectomy/tonsillectomy, and history of BiV ICD (Biotronik) implantation. She is chronically wheelchair-bound. She was previously in hospice for heart failure. She is allergic to codeine. She quit smoking years ago. She is DNR. She also has diagnosis of parkinsonism. Cardiac catheterization of August 26, 2024 (performed in [facility]) revealed triple-vessel benton coronary artery disease. DIRECTOR OF RECRUITMENT AND ADMISSIONS of obtuse marginal. DIRECTOR OF RECRUITMENT AND ADMISSIONS of RCA. Lad with 75% lesion and status post drug-eluting stent deployment. It is of note that there is patent SVG to obtuse marginal and also patent SVG to RCA. Cardiac catheterization of September 2020 revealed ejection fraction of 20%, DIRECTOR OF RECRUITMENT AND ADMISSIONS of SVG to diagonal, patent TAN, patent SVG to OM, patent SVG to PDA and DIRECTOR OF RECRUITMENT AND ADMISSIONS of RCA. Echocardiogram of November 30, 2024 revealed Dilated left ventricle, LVEF of around 10%. Pacing wire was seen in the right-sided chambers. There was mild mitral regurgitation. There was trace tricuspid regurgitation. As there was no good tricuspid regurgitation jet, right ventricular systolic pressure could not be estimated. Echocardiogram of September 04, 2024 reported: Dilated left ventricle. LVEF of 10%. Increased EDP. Pacing wire in right-sided chambers. Mild mitral regurgitation. As there was no good tricuspid regurgitation jet, right ventricular systolic pressure could not be estimated Echocardiogram of August 25, 2024 (performed in [facility]) for PE old ejection fraction of 20% Echocardiogram of reported: LV EF of 15-20%, biatrial enlargement, pacing wire in the right-sided chambers. Echocardiogram of November 22, 2023 revealed: Dilated left ventricle, LVEF of 10%, pacing wire and right-sided chambers, mild mitral regurgitation. Echocardiogram of August 28, 2023 revealed: Dilated left ventricle with significantly reduced systolic function. LVEF of 20%. Elevated LVEDP, dilated four chambers. Pacing wire was seen in right-sided chamber. [id number] MR. Echocardiogram of January 03, 2023 revealed ejection fraction of 20 to 25% and mild left ventricular enlargement Echocardiogram of March 25, 2023 (performed in the office) revealed four- chamber dilatation, LVEF of 20 to 25%, mild to moderate MR, mild TR, trace pulmonary valve insufficiency and right ventricular systolic pressure of 35 mmHg Echocardiogram of March 21, 2022 revealed ejection fraction of around 20%, mild MR/TR Echocardiogram of February 17, 2021 revealed dilated LV, LVEF around 25%, severe diffuse hypokinesis, increased LVEDP, dilated left and right atria, mild to moderate MR, mild TR. Echocardiogram of December 30, 2020 reported ejection fraction less than 20% and dilated left atrium. Echocardiogram of August 2020 revealed ejection fraction less than 25%, right atrial enlargement, left atrial enlargement and moderate MR. Creatinine: 1.04 - 1.29 - 1.15 - 0.88 - 0.99 Potassium: 4.8 - 4.6 - 4.6 - 6.1 - 4.0 - 4.[address] revealed: IMPRESSION: 1. Arthritic changes of both hips right slightly worse than left. 2. No fractures of the proximal femurs. 3. 4-5 mm calculus in the distal right ureter near the ureterovesical junction. (Series 2 images 75-78). 4. Bilateral laminectomy from L3 through S1. 5. Bony fusion of the facets bilaterally from L3 through S1. Hip x-ray revealed: FINDINGS/IMPRESSION: Nondisplaced fracture of the left greater trochanter. Bone scan revealed: IMPRESSION: Increased activity is present in the left intertrochanteric femur region on flow and delayed static images. This is a nonspecific finding but may represent inflammatory changes associated with fracture. Chest xry revealed: IMPRESSION: 1. No acute cardiopulmonary disease. 2. Significant change from 02/05/2025 EKG reveals paced ventricular rhythm Patient is an 79-year old female known outside to our practice who initially presented with left-sided hip pain status post reported fall with diagnosis of left hip fracture. In previous hospitalization patient was not in favor of orthopedic surgery/management. At that point, Cardiology services were requested for cardiac pre-operative risk assessment. Patient herself is known to have coronary artery disease for which she is status post previous 3-V CABG with most recent PCI involving LAD 08/26/2024 on DAPT (Plavix/Aspirin). She is furthermore known to have baseline history ischemic cardiomyopathy with last known LVEF of 10% as per Echocardiogram findings 11/30/2024 which she is status post previous Biotronik biventricular AICD implantation. Recent device interrogation performed in November of 2024 during previous admission had revealed an overall appropriately functioning device. At present, initial 12-lead electrocardiogram had revealed an A-V paced rhythm. At present denies any active chest pains, shortness of breath, palpitations, dizziness, syncope, orthopnea, paroxysmal nocturnal dyspnea, or any further cardiac related symptoms. Evidence for left hip fracture? Coronary artery disease, status post previous CABG/PCI Presence of Biotronik biventricular AICD Ischemic cardiomyopathy, history of Hypertension, controlled Hyperlipidemia Acute cystitis s/p ortho surgery CARDIAC SUGGESTIONS FOR MANAGEMENT: Recognizing the above mentioned, cardiac-monge the patient is considered compensated at this point. Cardiac-monge, Niya is considered moderate-risk patient for tentative plan of undergoing moderate-risk ORIF involving left hip fracture under appropriate intra-operative and post-operative cardiac/hemodynamic monitoring with further recommendation to avoid hypotension. You can hold aspirin/Plavix prior to procedure and restart after procedure. s/p ortho surgery without immediate complication. Ortho follow up DAPT (Aspirin/Plavix) to be restarted Restart aspirin/Plavix, if there is no plan for surgery or the decision is made against surgery Proceed with GDMT for systolic heart failure as concurrent conditions permit Toprol-XL/Entresto/Aldactone/Ranolazine/Atorvastatin Proceed with optimized medical therapy/risk factor modification Follow up orthopedic surgery recommendations Proceed with close observation for overt signs of fluid overload Proceed with strict intakes, outputs, and daily weights Proceed with close rate and rhythm surveillance Proceed with close hemodynamic surveillance Proceed with optimized blood pressure control Transfuse to sustain HGB level above 7.0 Sustain Magnesium level greater than 2.0 Sustain Potassium level greater than 4.0 Follow up renal function and electrolytes Management in telemetry Will proceed to follow from a cardiac perspective Further recommendations per clinical progression All available diagnostic labs, EKG's, and images were personally reviewed Prognosis: Guarded A total of 55 minutes was spent reviewing the patient record, examining the patient, making a diagnostic and therapeutic plan, discussing this plan with medical personnel, following up on diagnostic studies and following the patient for clinical stability excluding any and all procedures. At least 50% of this time was spent in direct, [id number] contact. Thank you for allowing me to participate in this patient's care. Further recommendations will depend on patient's clinical course. Please do not hesitate to contact me if you have any questions or concerns. This medical document was created using electronic medical record system with MModal computerized dictation system. Although this document has been carefully reviewed, there may still be some phonetic and typographical errors. These areas are purely typographical due to the imperfection of the software programs, and do not reflect any compromise in the patient's medical care. Dietary Evaluation Review Recommendations by RD: Dietary education by RD Comments: 1) Advance to 60g CCHO cardiac diet when medically feasible 2) Encourage optimal PO intake 3) Collect HbA1c 4) Refer to outpatient RD/CDCES for weight management 5) Follow-up with orthopedic surgeon, cardiology, pulmonology, and nephrology 6) Continue to monitor I&O, labs, and skin integrity Expected Outcomes/Goals: 1) labs to improve 2) diet to advance 3) gradual wt loss 4) f/u in 3-5 days Plan discussed with: Patient, Other RODRIGUEZ LEBRON MD Feb 15, 2025 08:06
[2025-02-15] MEDS: ENOXAPARIN SOD 40 MG/0.4 ML SYRINGE SC SCH (09:03)
[2025-02-15] MEDS: SACUBITRIL-VALSARTAN 24mg/26mg TAB PO SCH (10:13)
[2025-02-15] MEDS: SPIRONOLACTONE 25 MG TAB PO SCH (10:13)
[2025-02-15] MEDS: CLOPIDOGREL BISULFATE 75 MG TAB PO SCH (10:14)
[2025-02-15] MEDS ORDERED: clonazePAM 0.5 MG TAB PO PRN (10:15)
[2025-02-15 10:47] LABS: Hematocrit 34.8 % (36.0-46.0); Hemoglobin 11.7 g/dL (12.2-16.2); Mean Corpuscular Hemoglobin 29.8 pg (28.0-32.0); Mean Corpuscular Volume 88.8 fL (80.0-100.0); Nucleated Red Blood Cells % 0.1 %
[2025-02-15] MEDS: IPRATROPIUM BROM 0.5 MG/2.5ML INH SOL NEB PRN (10:48)
[2025-02-15 11:04] LABS: Albumin 3.9 g/dL (3.2-4.8); Anion Gap 9 (5-15); BUN/Creatinine Ratio 29.0 (10.0-20.0); Bilirubin, Total 0.4 mg/dL (0.2-1.0); Calcium 9.1 mg/dL (8.7-10.4); Carbon Dioxide 24 mmol/L (20-31); Chloride 107 mmol/L (98-107); Magnesium 1.7 mg/dL (1.6-2.6); Potassium 4.5 mmol/L (3.5-5.1); Sodium 140 mmol/L (136-145); Total Protein 5.7 g/dL (5.7-8.2)
[2025-02-15 11:05] LABS: Alanine Aminotransferase < 9 U/L (7-40); Alkaline Phosphatase 116 U/L (46-116); Blood Urea Nitrogen 36 mg/dL (9-23); Glucose 221 mg/dL (74-106)
--- NOTE | 2025-02-15 12:13 | DVHPN2 ---
Subjective Having hip pain, seen at bedside today,. Reviewed: H&P Changes from previous H/P or p: No Changes General: Per HPI Objective Vitals Vital Signs Date Time Temp Pulse Resp B/P (MAP) Pulse Ox O2 Delivery O2 Flow Rate FiO2 02/15/25 10:54 82 16 100 02/15/25 10:48 Nasal Cannula* 2 28 02/15/25 09:34 119/71 02/15/25 09:00 99.4 99.4 Intake/Output Intake and Output 02/15/25 07:00 Intake Total 150 ml Balance 150 ml Intake Oral 0 ml IV Total 150 ml # Voids 5 Exam Gen: 79-year-old female in mild distress Skin: Warm, dry, normal color and texture, no rash. HEENT: Normocephalic atraumatic, mucous membranes moist and pink. Neck: Cervical and supraclavicular nodes normal without enlargement, trachea is midline, thyroid gland is normal without masses. Pulmonary: Clear to auscultation and percussion bilaterally. Cardiac: Regular rate and rhythm. No murmur Abdomen: Soft, nontender, nondistended, bowel sounds present all 4 quadrants, no guarding, no rigidity, no organomegaly. Extremities: No cyanosis, clubbing, no edema Neuro: Cranial nerves II through XII grossly intact, normal affect and speech, no focal motor deficits. General Appearance: Alert, Oriented X3, Cooperative, No acute distress, mild distress Lungs: Clear to auscultation Cardiovascular: Normal S1, Normal S2 Abdomen: Normal bowel sounds, Soft, No tenderness, No hepatospenomegaly Musculoskeletal: Normal sensory function, Normal motor function Neuro: Normal speech, Strength at 5/5 X4 ext, Normal tone, Sensation intact, C ranial nerves 3-12 NL Psych/Mental Status: Mental status NL Medications Current Medications Medications Dose Ordered Sig/Asha Route Start Time Stop Time Status Last Admin Dose Admin Ranolazine 500 mg BID PO 02/11/25 10:00 02/15/25 09:02 500 MG Atorvastatin Calcium 40 mg HS PO 02/11/25 22:00 02/14/25 21:34 40 MG Acetaminophen 650 mg Q6HP PRN PO 02/10/25 23:30 02/11/25 20:10 650 MG Artificial Tears 1 drop [id number] PRN EACHEYE 02/11/25 15:00 Amiodarone HCl 100 mg HS PO 02/12/25 22:00 02/14/25 21:35 100 MG Metoprolol Succinate 25 mg DAILY PO 02/12/25 10:00 02/15/25 09:03 25 MG Meropenem 50 ml @ 17 mls/hr Q8HR IV 02/12/25 14:00 02/15/25 06:17 17 MLS/HR Oxycodone/ Acetaminophen 1 tab Q6HP PRN PO 02/13/25 12:45 02/14/25 18:09 1 TAB Ondansetron HCl 4 mg Q4HPRN PRN IV 02/13/25 12:45 02/15/25 09:02 4 MG Hydromorphone HCl 0.5 mg Q4HPRN PRN IV 02/13/25 16:00 02/15/25 09:04 0.5 MG Lactated Ringer's 1,000 ml @ 100 mls/hr Q10H IV 02/14/25 14:30 02/15/25 10:14 100 MLS/HR Sodium Chloride 10 ml Q8HR IV 02/14/25 22:00 02/15/25 06:25 10 ML Enoxaparin Sodium 40 mg DAILY SC 02/15/25 10:00 02/15/25 09:03 40 MG Oxycodone HCl 10 mg ONCE PRN PO 02/14/25 14:45 Spironolactone 25 mg DAILY PO 02/15/25 10:00 02/15/25 10:13 25 MG Sacubitril/ Valsartan 2 tab BID PO 02/15/25 10:00 02/15/25 10:13 2 TAB Aspirin 81 mg DAILY PO 02/15/25 10:00 02/15/25 10:14 81 MG Clopidogrel Bisulfate 75 mg DAILY PO 02/15/25 10:00 02/15/25 10:14 75 MG Ipratropium [place] 0.5 mg Q6HPRN PRN NEB 02/15/25 10:15 02/15/25 10:48 0.5 MG Clonazepam 0.5 mg Q8HP PRN PO 02/15/25 10:15 Laboratory Results Laboratory Tests 02/15/25 10:30 Chemistry Test 02/15/25 10:30 Albumin 3.9 g/dL (3.2-4.8) Calcium Level 9.1 mg/dL (8.7-10.4) Magnesium Level 1.7 mg/dL (1.6-2.6) Total Protein 5.7 g/dL (5.7-8.2) LFT Test 02/15/25 10:30 Alanine Aminotransferase (ALT) < 9 U/L (7-40) Alkaline Phosphatase 116 U/L (46-116) Aspartate Amino Transferase (AST) 19 U/L (13-40) Total Bilirubin 0.4 mg/dL (0.2-1.0) Urinalysis Test 02/11/25 16:20 Urine Color Yellow (Yellow) Urine Clarity Clear (Clear) Urine pH 5.5 (5.0-9.0) Urine Specific [place] 1.022 (1.001-1.035) Urine Protein Negative (Negative) Urine Ketones Negative (Negative) Urine Blood Negative /uL (Negative) Urine Nitrite Negative (Negative) Urine Bilirubin Negative (Negative) Urine Urobilinogen Normal mg/dL (Negative) Urine Leukocyte Esterase 1+ /uL (Negative) Urine RBC 3 /hpf (0 - 4) Urine Microscopic WBC 23 /HPF (0-5) H Urine Squamous Epithelial Cells Few /hpf (<5) Urine Bacteria Few /hpf (None Seen) H Urine Mucus Few (None Seen) Urine Glucose Normal mg/dL (Normal) Microbiology Microbiology Date/Time Source Procedure Growth Status 02/11/25 08:00 Nose MRSA Screen - Final Complete Labs and/or images reviewed: Labs reviewed by me, Image(s) reviewed by me Assessment/Plan Assessment/Plan 79-year-old female presents for evaluation of left hip pain. Patient reports her left leg giving out while using her walker and falling onto her left side. She complaints of worsening left hip pain. Of note, patient was admitted a week ago and evaluated for left hip surgery due to fracture. Patient opted to be discharged home and be seen as an outpatient. Today she returns and wants to be evaluated again for surgery. 02/11. : Consult for ortho has been placed, pending recs. We will make patient NPO midnight preemptively, labs in a.m.. Until then continue pain control. Patient wants Joshi she has trouble moving, we will get UA. Patient wants DNR as per her prior decision. We will give eyedrops due to dry. 02/12: Patient continues to left hip pain. Asking for increase pain meds, increasing Dilaudid, pending cardiology clearance for preop, UA still concerning for UTI, she is complaining of urinary symptoms. She has allergies to ceftriaxone, given prior history we will start with meropenem 1 g t.i.d.. 02/15: Patient went to OR yesterday for repair left hip fracture., unclear if patient is WBAT or and WP on left side but PT is following. We will continue to follow up for PT recommendations, we will likely need rehab. Keeps asking for increasing pain medication doses, appears to be comfortable. We will continue Dilaudid 0.5, she also is asking for Klonopin p.o. for? Restless leg for Parkinson's, she does have this medication at home, we will continue low-dose. dx: acute Left hip fracture Acute kidney injury Acute cystitis, recurrent Chronic anemia Anxiety Asthma Coronary artery disease COPD History of CVA Hypertension Mixed hyperlipidemia Status post pacemaker Status post CABG plan: Pain control PRN IV fluids Ortho consult Continue other home medications, Lipitor, Plavix, Ranexa ER, Aldactone,. Med surge DNR Plan discussed with: Patient My Orders Orders - DELFINO VICENTE MD Procedure Category Date Status Time Ipratropium Medneb PHA 02/15/25 In Process (Atrovent Medneb) 10:15 Cont Med Neb Intial Tx RT 02/15/25 Verified 10:06 Clonazepam Tablet PHA 02/15/25 In Process (Klonopin Tablet) 10:15 Date of Service: Feb 15, 2025 Billing Provider: DELFINO VICENTE MD Common Visit Codes: [id number] INP/OBS CARE(HIGH) DELFINO VICENTE MD Feb 15, 2025 12:13
[2025-02-15] MEDS ORDERED: KETAMINE 50mg/ML 1ml syringe IV ONE (13:13)
--- NOTE | 2025-02-15 19:11 | DVHPN2 ---
Progress Note Progress Note Progress Note Diagnosis: Left hip fracture, status post cephalomedullary nail fixation Subjective: Patient with history of ground-level fall, treated with cephalomedullary nail of the left hip. Reports persistent pain not well controlled, which is limiting ability to participate in physical therapy. Patient also reports inability to sleep at night due to pain. No other new concerns at this time. Objective: Surgical incision clean, dry, and intact. No evidence of strike-through drainage. Neurovascular exam grossly intact. Patient has not started PT due to inadequate pain control. Assessment: left hip fracture, status post cephalomedullary nail fixation. Recovery progression limited by pain and poor sleep. Plan: Optimize pain management in coordination with hospital team. Gabapentin prescribed to assist with neuropathic pain and sleep disturbance. Nursing to monitor closely for adverse effects; if side effects occur, disco ntinue gabapentin. If tolerated, patient may continue to use gabapentin at night for sleep. Encourage initiation of physical therapy once pain is better managed. WBAT with walker. Fall precautions discussed with patient. Patient will be cleared for discharge once pain is adequately controlled and cleared by physical therapy. All questions addressed; patient agrees with plan. Plan discussed with: Patient, Other (bedside nurse) Visit Coding Surgery Date of Service if different f: Feb 15, 2025 Billing Provider: CHIRAG PATRICIA Surgery Visit Codes: 21971 - INP CONSULT <55 MIN CHIRAG PATRICIA Feb 15, 2025 19:11
[2025-02-15] MEDS: GABAPENTIN 100 MG CAP PO SCH (22:00)
[2025-02-16] VITALS (13 sets, daily range): BP systolic 103–112; BP diastolic 53–76; PULSE 61–96; RESP 16–18; TEMP 97.3–98; O2SAT 93–97
--- NOTE | 2025-02-16 07:42 | DVHPN2 ---
Progress Note - Dictate Date Seen: Feb 16, 2025 Has the PT tested + for MRSA If YES, has PT been informed?: No Medical Necessity Reason Pt with a Central, PICC or Fol: No vital signs Vital Sign Date Time Temp Pulse Resp B/P (MAP) Pulse Ox O2 Delivery O2 Flow Rate FiO2 02/16/25 06:56 68 16 95 02/16/25 06:56 Nasal Cannula* 2 28 02/16/25 06:35 115/77 02/16/25 05:00 97.9 97.9 Total Intake and Output 02/15/25 02/15/25 02/16/25 15:00 23:00 07:00 Intake Total 50 ml 150 ml 200 ml Balance 50 ml 150 ml 200 ml medications Current Medications Medications Dose Ordered Sig/Asha Route Start Time Stop Time Status Last Admin Dose Admin Ranolazine 500 mg BID PO 02/11/25 10:00 02/15/25 22:11 500 MG Atorvastatin Calcium 40 mg HS PO 02/11/25 22:00 02/15/25 22:12 40 MG Acetaminophen 650 mg Q6HP PRN PO 02/10/25 23:30 02/11/25 20:10 650 MG Artificial Tears 1 drop [id number] PRN EACHEYE 02/11/25 15:00 Amiodarone HCl 100 mg HS PO 02/12/25 22:00 02/15/25 22:11 100 MG Metoprolol Succinate 25 mg DAILY PO 02/12/25 10:00 02/15/25 09:03 25 MG Meropenem 50 ml @ 17 mls/hr Q8HR IV 02/12/25 14:00 02/16/25 05:41 17 MLS/HR Oxycodone/ Acetaminophen 1 tab Q6HP PRN PO 02/13/25 12:45 02/14/25 18:09 1 TAB Ondansetron HCl 4 mg Q4HPRN PRN IV 02/13/25 12:45 02/16/25 06:34 4 MG Hydromorphone HCl 0.5 mg Q4HPRN PRN IV 02/13/25 16:00 02/16/25 06:35 0.5 MG Lactated Ringer's 1,000 ml @ 100 mls/hr Q10H IV 02/14/25 14:30 02/15/25 10:14 100 MLS/HR Sodium Chloride 10 ml Q8HR IV 02/14/25 22:00 02/16/25 06:34 10 ML Enoxaparin Sodium 40 mg DAILY SC 02/15/25 10:00 02/15/25 09:03 40 MG Oxycodone HCl 10 mg ONCE PRN PO 02/14/25 14:45 Spironolactone 25 mg DAILY PO 02/15/25 10:00 02/15/25 10:13 25 MG Sacubitril/ Valsartan 2 tab BID PO 02/15/25 10:00 02/15/25 10:13 2 TAB Aspirin 81 mg DAILY PO 02/15/25 10:00 02/15/25 10:14 81 MG Clopidogrel Bisulfate 75 mg DAILY PO 02/15/25 10:00 02/15/25 10:14 75 MG Ipratropium [place] 0.5 mg Q6HPRN PRN NEB 02/15/25 10:15 02/16/25 06:56 0.5 MG Clonazepam 0.5 mg Q8HP PRN PO 02/15/25 10:15 Gabapentin 100 mg HS PO 02/15/25 22:00 laboratory and microbiology Laboratory Tests 02/15/25 10:30 Test 02/15/25 10:30 Range/Units Serum Glucose 221 H 74-106 mg/dL Assessment/Plan s/p ortho surgery Patient is a 79-year-old female who presented to the hospital after fall in assisted living facility. She was recently in the hospital for the same and at that point she was found to have hip fracture. At that point the patient was seen by Cardiology and Orthopedics. At that point, the suggestion by Orthopedics was to proceed with hip surgery after cardiac clearance. Patient was risk stratified by Cardiology/us. Patient herself decided against any surgery at that point. At this time, the patient is reconsidering the offer for surgery. Cardiology is involved for cardiac catheterization with self-care and cardiac risk stratification. Patient herself is known to have coronary artery disease for which she is status post previous 3-V CABG with most recent PCI involving LAD 08/26/2024 on DAPT (Plavix/Aspirin). She is furthermore known to have baseline history ischemic cardiomyopathy with last known LVEF of 10% as per Echocardiogram findings 11/30/2024 which she is status post previous Biotronik biventricular AICD implantation. Recent device interrogation performed in November of 2024 during previous admission had revealed an overall appropriate functioning device. At present denies any active chest pains, shortness of breath, palpitations, dizziness, syncope, orthopnea, paroxysmal nocturnal dyspnea, or any further cardiac related symptoms. Not in acute distress. No JVD. Mucosa is pink and wet. No carotid bruit. Not using accessory muscles of breathing. Lungs are clear to auscultation. Cardiac: Regular, no thrill/gallop. Systolic murmur 2/6 in apex is heard. Abdomen is soft. Bowel sound is positive. No hepatomegaly. Extremities do not reveal edema. Dorsalis pedis is 2+ bilateral Past medical history includes hypertension, hyperlipidemia, coronary artery disease, history of CABG (2010), systolic heart failure, ischemic cardiomyopathy, gout, kidney stone, s/p ESWL, frequent UTI, history of CVA, Diverticulosis, COPD, Emphysema, s/p COVID, depression, Anxiety, GERD, history of appendectomy/hysterectomy/tonsillectomy, and history of BiV ICD (Biotronik) implantation. She is chronically wheelchair-bound. She was previously in hospice for heart failure. She is allergic to codeine. She quit smoking years ago. She is DNR. She also has diagnosis of parkinsonism. Cardiac catheterization of August 26, 2024 (performed in [facility]) revealed triple-vessel [place] coronary artery disease. MOBILE APPLICATION ARCHITECT of obtuse marginal. MOBILE APPLICATION ARCHITECT of RCA. Lad with 75% lesion and status post drug-eluting stent deployment. It is of note that there is patent SVG to obtuse marginal and also patent SVG to RCA. Cardiac catheterization of September 2020 revealed ejection fraction of 20%, MOBILE APPLICATION ARCHITECT of SVG to diagonal, patent TAN, patent SVG to OM, patent SVG to PDA and MOBILE APPLICATION ARCHITECT of RCA. Echocardiogram of November 30, 2024 revealed Dilated left ventricle, LVEF of around 10%. Pacing wire was seen in the right-sided chambers. There was mild mitral regurgitation. There was trace tricuspid regurgitation. As there was no good tricuspid regurgitation jet, right ventricular systolic pressure could not be estimated. Echocardiogram of September 04, 2024 reported: Dilated left ventricle. LVEF of 10%. Increased EDP. Pacing wire in right-sided chambers. Mild mitral regurgitation. As there was no good tricuspid regurgitation jet, right ventricular systolic pressure could not be estimated Echocardiogram of August 25, 2024 (performed in [facility]) for PE old ejection fraction of 20% Echocardiogram of reported: LV EF of 15-20%, biatrial enlargement, pacing wire in the right-sided chambers. Echocardiogram of November 22, 2023 revealed: Dilated left ventricle, LVEF of 10%, pacing wire and right-sided chambers, mild mitral regurgitation. Echocardiogram of August 28, 2023 revealed: Dilated left ventricle with significantly reduced systolic function. LVEF of 20%. Elevated LVEDP, dilated four chambers. Pacing wire was seen in right-sided chamber. [id number] MR. Echocardiogram of January 03, 2023 revealed ejection fraction of 20 to 25% and mild left ventricular enlargement Echocardiogram of March 25, 2023 (performed in the office) revealed four- chamber dilatation, LVEF of 20 to 25%, mild to moderate MR, mild TR, trace pulmonary valve insufficiency and right ventricular systolic pressure of 35 mmHg Echocardiogram of March 21, 2022 revealed ejection fraction of around 20%, mild MR/TR Echocardiogram of February 17, 2021 revealed dilated LV, LVEF around 25%, severe diffuse hypokinesis, increased LVEDP, dilated left and right atria, mild to moderate MR, mild TR. Echocardiogram of December 30, 2020 reported ejection fraction less than 20% and dilated left atrium. Echocardiogram of August 2020 revealed ejection fraction less than 25%, right atrial enlargement, left atrial enlargement and moderate MR. Creatinine: 1.04 - 1.29 - 1.15 - 0.88 - 0.99 - 1.24 Potassium: 4.8 - 4.6 - 4.6 - 6.1 - 4.0 - 4.4 - 4.[address] revealed: IMPRESSION: 1. Arthritic changes of both hips right slightly worse than left. 2. No fractures of the proximal femurs. 3. 4-5 mm calculus in the distal right ureter near the ureterovesical junction. (Series 2 images 75-78). 4. Bilateral laminectomy from L3 through S1. 5. Bony fusion of the facets bilaterally from L3 through S1. Hip x-ray revealed: FINDINGS/IMPRESSION: Nondisplaced fracture of the left greater trochanter. Bone scan revealed: IMPRESSION: Increased activity is present in the left intertrochanteric femur region on flow and delayed static images. This is a nonspecific finding but may represent inflammatory changes associated with fracture. Chest xry revealed: IMPRESSION: 1. No acute cardiopulmonary disease. 2. Significant change from 02/05/2025 EKG reveals paced ventricular rhythm Patient is an 79-year old female known outside to our practice who initially presented with left-sided hip pain status post reported fall with diagnosis of left hip fracture. In previous hospitalization patient was not in favor of orthopedic surgery/management. At that point, Cardiology services were requested for cardiac pre-operative risk assessment. Patient herself is known to have coronary artery disease for which she is status post previous 3-V CABG with most recent PCI involving LAD 08/26/2024 on DAPT (Plavix/Aspirin). She is furthermore known to have baseline history ischemic cardiomyopathy with last known LVEF of 10% as per Echocardiogram findings 11/30/2024 which she is status post previous Biotronik biventricular AICD implantation. Recent device interrogation performed in November of 2024 during previous admission had revealed an overall appropriately functioning device. At present, initial 12-lead electrocardiogram had revealed an A-V paced rhythm. At present denies any active chest pains, shortness of breath, palpitations, dizziness, syncope, orthopnea, paroxysmal nocturnal dyspnea, or any further cardiac related symptoms. Evidence for left hip fracture? Coronary artery disease, status post previous CABG/PCI Presence of Biotronik biventricular AICD Ischemic cardiomyopathy, history of Hypertension, controlled Hyperlipidemia Acute cystitis s/p ortho surgery CARDIAC SUGGESTIONS FOR MANAGEMENT: Recognizing the above mentioned, cardiac-monge the patient is considered compensated at this point. Cardiac-monge, Niya is considered moderate-risk patient for tentative plan of undergoing moderate-risk ORIF involving left hip fracture under appropriate intra-operative and post-operative cardiac/hemodynamic monitoring with further recommendation to avoid hypotension. You can hold aspirin/Plavix prior to procedure and restart after procedure. s/p ortho surgery without immediate complication. Ortho follow up DAPT (Aspirin/Plavix) to be restarted Restart aspirin/Plavix, if there is no plan for surgery or the decision is made against surgery Proceed with GDMT for systolic heart failure as concurrent conditions permit Toprol-XL/Entresto/Aldactone/Ranolazine/Atorvastatin Proceed with optimized medical therapy/risk factor modification Follow up orthopedic surgery recommendations Proceed with close observation for overt signs of fluid overload Proceed with strict intakes, outputs, and daily weights Proceed with close rate and rhythm surveillance Proceed with close hemodynamic surveillance Proceed with optimized blood pressure control Transfuse to sustain HGB level above 7.0 Sustain Magnesium level greater than 2.0 Sustain Potassium level greater than 4.0 Follow up renal function and electrolytes Management in telemetry Will proceed to follow from a cardiac perspective Further recommendations per clinical progression Cardiac monge, stable All available diagnostic labs, EKG's, and images were personally reviewed Prognosis: Guarded A total of 55 minutes was spent reviewing the patient record, examining the patient, making a diagnostic and therapeutic plan, discussing this plan with medical personnel, following up on diagnostic studies and following the patient for clinical stability excluding any and all procedures. At least 50% of this time was spent in direct, [id number] contact. Thank you for allowing me to participate in this patient's care. Further recommendations will depend on patient's clinical course. Please do not hesitate to contact me if you have any questions or concerns. This medical document was created using electronic medical record system with [employer] computerized dictation system. Although this document has been carefully reviewed, there may still be some phonetic and typographical errors. These areas are purely typographical due to the imperfection of the software programs, and do not reflect any compromise in the patient's medical care. Dietary Evaluation Review Recommendations by RD: Dietary education by RD Comments: 1) Advance to 60g CCHO cardiac diet when medically feasible 2) Encourage optimal PO intake 3) Collect HbA1c 4) Refer to outpatient RD/CDCES for weight management 5) Follow-up with orthopedic surgeon, cardiology, pulmonology, and nephrology 6) Continue to monitor I&O, labs, and skin integrity Expected Outcomes/Goals: 1) labs to improve 2) diet to advance 3) gradual wt loss 4) f/u in 3-5 days Plan discussed with: Patient, Other (nurse) RODRIGUEZ LEBRON MD Feb 16, 2025 07:42
[2025-02-16] MEDS: HYDROMORPHONE HCL 1 MG/ML INJ IV PRN (11:35)
--- NOTE | 2025-02-16 15:34 | DVHPN2 ---
Subjective Having hip pain, seen at bedside today,. Reviewed: H&P Changes from previous H/P or p: No Changes General: Per HPI Objective Vitals Vital Signs Date Time Temp Pulse Resp B/P (MAP) Pulse Ox O2 Delivery O2 Flow Rate FiO2 02/16/25 12:30 97.7 66 16 109/69 (82) 93 97.7 02/16/25 10:00 Nasal Cannula 2.0 02/16/25 10:00 28 Intake/Output Intake and Output 02/16/25 07:00 Intake Total 400 ml Balance 400 ml Intake Oral 300 ml IV Total 100 ml # Voids 4 Exam Gen: 79-year-old female in mild distress Skin: Warm, dry, normal color and texture, no rash. HEENT: Normocephalic atraumatic, mucous membranes moist and pink. Neck: Cervical and supraclavicular nodes normal without enlargement, trachea is midline, thyroid gland is normal without masses. Pulmonary: Clear to auscultation and percussion bilaterally. Cardiac: Regular rate and rhythm. No murmur Abdomen: Soft, nontender, nondistended, bowel sounds present all 4 quadrants, no guarding, no rigidity, no organomegaly. Extremities: No cyanosis, clubbing, no edema Neuro: Cranial nerves II through XII grossly intact, normal affect and speech, no focal motor deficits. General Appearance: Alert, Oriented X3, Cooperative, No acute distress, mild distress Lungs: Clear to auscultation Cardiovascular: Normal S1, Normal S2 Abdomen: Normal bowel sounds, Soft, No tenderness, No hepatospenomegaly Musculoskeletal: Normal sensory function, Normal motor function Neuro: Normal speech, Strength at 5/5 X4 ext, Normal tone, Sensation intact, C ranial nerves 3-12 NL Psych/Mental Status: Mental status NL Medications Current Medications Medications Dose Ordered Sig/Asha Route Start Time Stop Time Status Last Admin Dose Admin Ranolazine 500 mg BID PO 02/11/25 10:00 02/16/25 09:53 500 MG Atorvastatin Calcium 40 mg HS PO 02/11/25 22:00 02/15/25 22:12 40 MG Acetaminophen 650 mg Q6HP PRN PO 02/10/25 23:30 02/11/25 20:10 650 MG Artificial Tears 1 drop [id number] PRN EACHEYE 02/11/25 15:00 Amiodarone HCl 100 mg HS PO 02/12/25 22:00 02/15/25 22:11 100 MG Metoprolol Succinate 25 mg DAILY PO 02/12/25 10:00 02/15/25 09:03 25 MG Meropenem 50 ml @ 17 mls/hr Q8HR IV 02/12/25 14:00 02/16/25 14:38 17 MLS/HR Oxycodone/ Acetaminophen 1 tab Q6HP PRN PO 02/13/25 12:45 02/14/25 18:09 1 TAB Ondansetron HCl 4 mg Q4HPRN PRN IV 02/13/25 12:45 02/16/25 06:34 4 MG Lactated Ringer's 1,000 ml @ 100 mls/hr Q10H IV 02/14/25 14:30 02/15/25 10:14 100 MLS/HR Sodium Chloride 10 ml Q8HR IV 02/14/25 22:00 02/16/25 14:00 10 ML Enoxaparin Sodium 40 mg DAILY SC 02/15/25 10:00 02/16/25 09:53 40 MG Oxycodone HCl 10 mg ONCE PRN PO 02/14/25 14:45 Spironolactone 25 mg DAILY PO 02/15/25 10:00 02/16/25 09:53 25 MG Sacubitril/ Valsartan 2 tab BID PO 02/15/25 10:00 02/15/25 10:13 2 TAB Aspirin 81 mg DAILY PO 02/15/25 10:00 02/16/25 09:52 81 MG Clopidogrel Bisulfate 75 mg DAILY PO 02/15/25 10:00 02/16/25 09:53 75 MG Ipratropium [place] 0.5 mg Q6HPRN PRN NEB 02/15/25 10:15 02/16/25 06:56 0.5 MG Clonazepam 0.5 mg Q8HP PRN PO 02/15/25 10:15 Gabapentin 100 mg HS PO 02/15/25 22:00 Hydromorphone HCl 0.75 mg Q4HPRN PRN IV 02/16/25 10:38 02/16/25 11:35 0.75 MG Laboratory Results Laboratory Tests 02/15/25 10:30 Urinalysis Test 02/11/25 16:20 Urine Color Yellow (Yellow) Urine Clarity Clear (Clear) Urine pH 5.5 (5.0-9.0) Urine Specific [place] 1.022 (1.001-1.035) Urine Protein Negative (Negative) Urine Ketones Negative (Negative) Urine Blood Negative /uL (Negative) Urine Nitrite Negative (Negative) Urine Bilirubin Negative (Negative) Urine Urobilinogen Normal mg/dL (Negative) Urine Leukocyte Esterase 1+ /uL (Negative) Urine RBC 3 /hpf (0 - 4) Urine Microscopic WBC 23 /HPF (0-5) H Urine Squamous Epithelial Cells Few /hpf (<5) Urine Bacteria Few /hpf (None Seen) H Urine Mucus Few (None Seen) Urine Glucose Normal mg/dL (Normal) Microbiology Microbiology Date/Time Source Procedure Growth Status 02/11/25 08:00 Nose MRSA Screen - Final Complete Labs and/or images reviewed: Labs reviewed by me, Image(s) reviewed by me Assessment/Plan Assessment/Plan 79-year-old female presents for evaluation of left hip pain. Patient reports her left leg giving out while using her walker and falling onto her left side. She complaints of worsening left hip pain. Of note, patient was admitted a week ago and evaluated for left hip surgery due to fracture. Patient opted to be discharged home and be seen as an outpatient. Today she returns and wants to be evaluated again for surgery. 02/11. : Consult for ortho has been placed, pending recs. We will make patient NPO midnight preemptively, labs in a.m.. Until then continue pain control. Patient wants Joshi she has trouble moving, we will get UA. Patient wants DNR as per her prior decision. We will give eyedrops due to dry. 02/12: Patient continues to left hip pain. Asking for increase pain meds, increasing Dilaudid, pending cardiology clearance for preop, UA still concerning for UTI, she is complaining of urinary symptoms. She has allergies to ceftriaxone, given prior history we will start with meropenem 1 g t.i.d.. 02/15: Patient went to OR yesterday for repair left hip fracture., unclear if patient is WBAT or and WP on left side but PT is following. We will continue to follow up for PT recommendations, we will likely need rehab. Keeps asking for increasing pain medication doses, appears to be comfortable. We will continue Dilaudid 0.5, she also is asking for Klonopin p.o. for? Restless leg for Parkinson's, she does have this medication at home, we will continue low-dose. 02/16: Patient asking for increase Dilaudid dose, we will increase to 0.75 q.4. Waiting for PT eval today. Likely we will need rehab. Patient is weight- bearing as tolerated unaffected left leg status post repair for left hip fracture. dx: acute Left hip fracture Acute kidney injury Acute cystitis, recurrent Chronic anemia Anxiety Asthma Coronary artery disease COPD History of CVA Hypertension Mixed hyperlipidemia Status post pacemaker Status post CABG plan: Pain control PRN IV fluids Ortho consult Continue other home medications, Lipitor, Plavix, Ranexa ER, Aldactone,. Med surge DNR Plan discussed with: Patient My Orders Orders - DELFINO VICENTE MD Procedure Category Date Status Time Hydromorphone Hcl Inj PHA 02/16/25 In Process (Dilaudid Injectio 10:38 Date of Service: Feb 16, 2025 Billing Provider: DELFINO VICENTE MD Common Visit Codes: [id number] INP/OBS CARE(HIGH) DELFINO VICENTE MD Feb 16, 2025 15:34
[2025-02-16] MEDS: LACTULOSE 20Gm/30ML SOLN PO SCH (17:14)
[2025-02-17] VITALS (12 sets, daily range): BP systolic 96–150; BP diastolic 56–74; PULSE 67–85; RESP 16–19; TEMP 97.6–98.4; O2SAT 94–100
--- NOTE | 2025-02-17 06:45 | DVHPN2 ---
Progress Note - Dictate Date Seen: Feb 17, 2025 Has the PT tested + for MRSA If YES, has PT been informed?: No Medical Necessity Reason Pt with a Central, PICC or Fol: No vital signs Vital Sign Date Time Temp Pulse Resp B/P (MAP) Pulse Ox O2 Delivery O2 Flow Rate FiO2 02/17/25 05:00 97.7 83 17 122/60 (80) 98 97.7 02/16/25 20:00 Nasal Cannula* 2 28 Total Intake and Output 02/16/25 02/16/25 02/17/25 15:00 23:00 07:00 Intake Total 50 ml 450 ml 584 ml Balance 50 ml 450 ml 584 ml medications Current Medications Medications Dose Ordered Sig/Asha Route Start Time Stop Time Status Last Admin Dose Admin Ranolazine 500 mg BID PO 02/11/25 10:00 02/16/25 22:08 500 MG Atorvastatin Calcium 40 mg HS PO 02/11/25 22:00 02/16/25 22:09 40 MG Acetaminophen 650 mg Q6HP PRN PO 02/10/25 23:30 02/11/25 20:10 650 MG Artificial Tears 1 drop [id number] PRN EACHEYE 02/11/25 15:00 Amiodarone HCl 100 mg HS PO 02/12/25 22:00 02/16/25 22:09 100 MG Metoprolol Succinate 25 mg DAILY PO 02/12/25 10:00 02/15/25 09:03 25 MG Meropenem 50 ml @ 17 mls/hr Q8HR IV 02/12/25 14:00 02/17/25 05:57 17 MLS/HR Oxycodone/ Acetaminophen 1 tab Q6HP PRN PO 02/13/25 12:45 02/14/25 18:09 1 TAB Ondansetron HCl 4 mg Q4HPRN PRN IV 02/13/25 12:45 02/17/25 01:13 4 MG Lactated Ringer's 1,000 ml @ 100 mls/hr Q10H IV 02/14/25 14:30 02/16/25 17:10 100 MLS/HR Sodium Chloride 10 ml Q8HR IV 02/14/25 22:00 02/17/25 05:56 10 ML Enoxaparin Sodium 40 mg DAILY SC 02/15/25 10:00 02/16/25 09:53 40 MG Oxycodone HCl 10 mg ONCE PRN PO 02/14/25 14:45 Spironolactone 25 mg DAILY PO 02/15/25 10:00 02/16/25 09:53 25 MG Sacubitril/ Valsartan 2 tab BID PO 02/15/25 10:00 02/15/25 10:13 2 TAB Aspirin 81 mg DAILY PO 02/15/25 10:00 02/16/25 09:52 81 MG Clopidogrel Bisulfate 75 mg DAILY PO 02/15/25 10:00 02/16/25 09:53 75 MG Ipratropium [place] 0.5 mg Q6HPRN PRN NEB 02/15/25 10:15 02/16/25 21:57 0.5 MG Clonazepam 0.5 mg Q8HP PRN PO 02/15/25 10:15 Gabapentin 100 mg HS PO 02/15/25 22:00 02/16/25 22:10 100 MG Hydromorphone HCl 0.75 mg Q4HPRN PRN IV 02/16/25 10:38 02/17/25 01:20 0.75 MG Lactulose 30 ml BID PO 02/16/25 15:30 02/16/25 22:08 30 ML laboratory and microbiology Laboratory Tests 02/15/25 10:30 Test 02/15/25 10:30 Range/Units Serum Glucose 221 H 74-106 mg/dL Assessment/Plan s/p ortho surgery Patient is a 79-year-old female who presented to the hospital after fall in assisted living facility. She was recently in the hospital for the same and at that point she was found to have hip fracture. At that point the patient was seen by Cardiology and Orthopedics. At that point, the suggestion by Orthopedics was to proceed with hip surgery after cardiac clearance. Patient was risk stratified by Cardiology/us. Patient herself decided against any surgery at that point. At this time, the patient is reconsidering the offer for surgery. Cardiology is involved for cardiac catheterization with self-care and cardiac risk stratification. Patient herself is known to have coronary artery disease for which she is status post previous 3-V CABG with most recent PCI involving LAD 08/26/2024 on DAPT (Plavix/Aspirin). She is furthermore known to have baseline history ischemic cardiomyopathy with last known LVEF of 10% as per Echocardiogram findings 11/30/2024 which she is status post previous Biotronik biventricular AICD implantation. Recent device interrogation performed in November of 2024 during previous admission had revealed an overall appropriate functioning device. At present denies any active chest pains, shortness of breath, palpitations, dizziness, syncope, orthopnea, paroxysmal nocturnal dyspnea, or any further cardiac related symptoms. Not in acute distress. No JVD. Mucosa is pink and wet. No carotid bruit. Not using accessory muscles of breathing. Lungs are clear to auscultation. Cardiac: Regular, no thrill/gallop. Systolic murmur 2/6 in apex is heard. Abdomen is soft. Bowel sound is positive. No hepatomegaly. Extremities do not reveal edema. Dorsalis pedis is 2+ bilateral Past medical history includes hypertension, hyperlipidemia, coronary artery disease, history of CABG (2010), systolic heart failure, ischemic cardiomyopathy, gout, kidney stone, s/p ESWL, frequent UTI, history of CVA, Diverticulosis, COPD, Emphysema, s/p COVID, depression, Anxiety, GERD, history of appendectomy/hysterectomy/tonsillectomy, and history of BiV ICD (Biotronik) implantation. She is chronically wheelchair-bound. She was previously in hospice for heart failure. She is allergic to codeine. She quit smoking years ago. She is DNR. She also has diagnosis of parkinsonism. Cardiac catheterization of August 26, 2024 (performed in [facility]) revealed triple-vessel napaimute coronary artery disease. OPTICAL GLASS SILVERER of obtuse marginal. OPTICAL GLASS SILVERER of RCA. Lad with 75% lesion and status post drug-eluting stent deployment. It is of note that there is patent SVG to obtuse marginal and also patent SVG to RCA. Cardiac catheterization of September 2020 revealed ejection fraction of 20%, OPTICAL GLASS SILVERER of SVG to diagonal, patent TAN, patent SVG to OM, patent SVG to PDA and OPTICAL GLASS SILVERER of RCA. Echocardiogram of November 30, 2024 revealed Dilated left ventricle, LVEF of around 10%. Pacing wire was seen in the right-sided chambers. There was mild mitral regurgitation. There was trace tricuspid regurgitation. As there was no good tricuspid regurgitation jet, right ventricular systolic pressure could not be estimated. Echocardiogram of September 04, 2024 reported: Dilated left ventricle. LVEF of 10%. Increased EDP. Pacing wire in right-sided chambers. Mild mitral regurgitation. As there was no good tricuspid regurgitation jet, right ventricular systolic pressure could not be estimated Echocardiogram of August 25, 2024 (performed in [facility]) for PE old ejection fraction of 20% Echocardiogram of reported: LV EF of 15-20%, biatrial enlargement, pacing wire in the right-sided chambers. Echocardiogram of November 22, 2023 revealed: Dilated left ventricle, LVEF of 10%, pacing wire and right-sided chambers, mild mitral regurgitation. Echocardiogram of August 28, 2023 revealed: Dilated left ventricle with significantly reduced systolic function. LVEF of 20%. Elevated LVEDP, dilated four chambers. Pacing wire was seen in right-sided chamber. [id number] MR. Echocardiogram of January 03, 2023 revealed ejection fraction of 20 to 25% and mild left ventricular enlargement Echocardiogram of March 25, 2023 (performed in the office) revealed four- chamber dilatation, LVEF of 20 to 25%, mild to moderate MR, mild TR, trace pulmonary valve insufficiency and right ventricular systolic pressure of 35 mmHg Echocardiogram of March 21, 2022 revealed ejection fraction of around 20%, mild MR/TR Echocardiogram of February 17, 2021 revealed dilated LV, LVEF around 25%, severe diffuse hypokinesis, increased LVEDP, dilated left and right atria, mild to moderate MR, mild TR. Echocardiogram of December 30, 2020 reported ejection fraction less than 20% and dilated left atrium. Echocardiogram of August 2020 revealed ejection fraction less than 25%, right atrial enlargement, left atrial enlargement and moderate MR. Creatinine: 1.04 - 1.29 - 1.15 - 0.88 - 0.99 - 1.24 Potassium: 4.8 - 4.6 - 4.6 - 6.1 - 4.0 - 4.4 - 4.[address] revealed: IMPRESSION: 1. Arthritic changes of both hips right slightly worse than left. 2. No fractures of the proximal femurs. 3. 4-5 mm calculus in the distal right ureter near the ureterovesical junction. (Series 2 images 75-78). 4. Bilateral laminectomy from L3 through S1. 5. Bony fusion of the facets bilaterally from L3 through S1. Hip x-ray revealed: FINDINGS/IMPRESSION: Nondisplaced fracture of the left greater trochanter. Bone scan revealed: IMPRESSION: Increased activity is present in the left intertrochanteric femur region on flow and delayed static images. This is a nonspecific finding but may represent inflammatory changes associated with fracture. Chest xry revealed: IMPRESSION: 1. No acute cardiopulmonary disease. 2. Significant change from 02/05/2025 EKG reveals paced ventricular rhythm Patient is an 79-year old female known outside to our practice who initially presented with left-sided hip pain status post reported fall with diagnosis of left hip fracture. In previous hospitalization patient was not in favor of orthopedic surgery/management. At that point, Cardiology services were requested for cardiac pre-operative risk assessment. Patient herself is known to have coronary artery disease for which she is status post previous 3-V CABG with most recent PCI involving LAD 08/26/2024 on DAPT (Plavix/Aspirin). She is furthermore known to have baseline history ischemic cardiomyopathy with last known LVEF of 10% as per Echocardiogram findings 11/30/2024 which she is status post previous Biotronik biventricular AICD implantation. Recent device interrogation performed in November of 2024 during previous admission had revealed an overall appropriately functioning device. At present, initial 12-lead electrocardiogram had revealed an A-V paced rhythm. At present denies any active chest pains, shortness of breath, palpitations, dizziness, syncope, orthopnea, paroxysmal nocturnal dyspnea, or any further cardiac related symptoms. Evidence for left hip fracture? Coronary artery disease, status post previous CABG/PCI Presence of Biotronik biventricular AICD Ischemic cardiomyopathy, history of Hypertension, controlled Hyperlipidemia Acute cystitis s/p ortho surgery CARDIAC SUGGESTIONS FOR MANAGEMENT: Recognizing the above mentioned, cardiac-monge the patient is considered compensated at this point. Cardiac-monge, Niya is considered moderate-risk patient for tentative plan of undergoing moderate-risk ORIF involving left hip fracture under appropriate intra-operative and post-operative cardiac/hemodynamic monitoring with further recommendation to avoid hypotension. You can hold aspirin/Plavix prior to procedure and restart after procedure. s/p ortho surgery without immediate complication. Ortho follow up DAPT (Aspirin/Plavix) to be restarted Restart aspirin/Plavix, if there is no plan for surgery or the decision is made against surgery Proceed with GDMT for systolic heart failure as concurrent conditions permit Toprol-XL/Entresto/Aldactone/Ranolazine/Atorvastatin Proceed with optimized medical therapy/risk factor modification Follow up orthopedic surgery recommendations Proceed with close observation for overt signs of fluid overload Proceed with strict intakes, outputs, and daily weights Proceed with close rate and rhythm surveillance Proceed with close hemodynamic surveillance Proceed with optimized blood pressure control Transfuse to sustain HGB level above 7.0 Sustain Magnesium level greater than 2.0 Sustain Potassium level greater than 4.0 Follow up renal function and electrolytes Management in telemetry Will proceed to follow from a cardiac perspective Further recommendations per clinical progression Cardiac monge, stable All available diagnostic labs, EKG's, and images were personally reviewed Prognosis: Guarded A total of 55 minutes was spent reviewing the patient record, examining the patient, making a diagnostic and therapeutic plan, discussing this plan with medical personnel, following up on diagnostic studies and following the patient for clinical stability excluding any and all procedures. At least 50% of this time was spent in direct, [id number] contact. Thank you for allowing me to participate in this patient's care. Further recommendations will depend on patient's clinical course. Please do not hesitate to contact me if you have any questions or concerns. This medical document was created using electronic medical record system with [employer] computerized dictation system. Although this document has been carefully reviewed, there may still be some phonetic and typographical errors. These areas are purely typographical due to the imperfection of the software programs, and do not reflect any compromise in the patient's medical care. Dietary Evaluation Review Recommendations by RD: Dietary education by RD Comments: 1) Advance to 60g CCHO cardiac diet when medically feasible 2) Encourage optimal PO intake 3) Collect HbA1c 4) Refer to outpatient RD/CDCES for weight management 5) Follow-up with orthopedic surgeon, cardiology, pulmonology, and nephrology 6) Continue to monitor I&O, labs, and skin integrity Expected Outcomes/Goals: 1) labs to improve 2) diet to advance 3) gradual wt loss 4) f/u in 3-5 days Plan discussed with: Patient, Other (nurse) RODRIGUEZ LEBRON MD Feb 17, 2025 06:45
--- NOTE | 2025-02-17 11:33 | DVHPN2 ---
Subjective Having hip pain, seen at bedside today,. Reviewed: H&P Changes from previous H/P or p: No Changes General: Per HPI Objective Vitals Vital Signs Date Time Temp Pulse Resp B/P (MAP) Pulse Ox O2 Delivery O2 Flow Rate FiO2 02/17/25 09:39 86 19 96/55 02/17/25 08:35 97.6 97 97.6 02/17/25 06:20 Nasal Cannula 2.0 02/17/25 06:20 28 Intake/Output Intake and Output 02/17/25 07:00 Intake Total 1084 ml Balance 1084 ml Intake Oral 534 ml IV Total 550 ml # Voids 8 # Bowel Movements 4 Exam Gen: 79-year-old female in mild distress Skin: Warm, dry, normal color and texture, no rash. HEENT: Normocephalic atraumatic, mucous membranes moist and pink. Neck: Cervical and supraclavicular nodes normal without enlargement, trachea is midline, thyroid gland is normal without masses. Pulmonary: Clear to auscultation and percussion bilaterally. Cardiac: Regular rate and rhythm. No murmur Abdomen: Soft, nontender, nondistended, bowel sounds present all 4 quadrants, no guarding, no rigidity, no organomegaly. Extremities: No cyanosis, clubbing, no edema Neuro: Cranial nerves II through XII grossly intact, normal affect and speech, no focal motor deficits. General Appearance: Alert, Oriented X3, Cooperative, No acute distress, mild distress Lungs: Clear to auscultation Cardiovascular: Normal S1, Normal S2 Abdomen: Normal bowel sounds, Soft, No tenderness, No hepatospenomegaly Musculoskeletal: Normal sensory function, Normal motor function Neuro: Normal speech, Strength at 5/5 X4 ext, Normal tone, Sensation intact, C ranial nerves 3-12 NL Psych/Mental Status: Mental status NL Medications Current Medications Medications Dose Ordered Sig/Asha Route Start Time Stop Time Status Last Admin Dose Admin Ranolazine 500 mg BID PO 02/11/25 10:00 02/17/25 09:10 500 MG Atorvastatin Calcium 40 mg HS PO 02/11/25 22:00 02/16/25 22:09 40 MG Acetaminophen 650 mg Q6HP PRN PO 02/10/25 23:30 02/11/25 20:10 650 MG Artificial Tears 1 drop [id number] PRN EACHEYE 02/11/25 15:00 Amiodarone HCl 100 mg HS PO 02/12/25 22:00 02/16/25 22:09 100 MG Metoprolol Succinate 25 mg DAILY PO 02/12/25 10:00 02/15/25 09:03 25 MG Meropenem 50 ml @ 17 mls/hr Q8HR IV 02/12/25 14:00 02/17/25 05:57 17 MLS/HR Oxycodone/ Acetaminophen 1 tab Q6HP PRN PO 02/13/25 12:45 02/14/25 18:09 1 TAB Ondansetron HCl 4 mg Q4HPRN PRN IV 02/13/25 12:45 02/17/25 09:08 4 MG Lactated Ringer's 1,000 ml @ 100 mls/hr Q10H IV 02/14/25 14:30 02/16/25 17:10 100 MLS/HR Sodium Chloride 10 ml Q8HR IV 02/14/25 22:00 02/17/25 05:56 10 ML Enoxaparin Sodium 40 mg DAILY SC 02/15/25 10:00 02/17/25 09:06 40 MG Oxycodone HCl 10 mg ONCE PRN PO 02/14/25 14:45 Spironolactone 25 mg DAILY PO 02/15/25 10:00 02/17/25 09:07 25 MG Sacubitril/ Valsartan 2 tab BID PO 02/15/25 10:00 02/17/25 09:07 2 TAB Aspirin 81 mg DAILY PO 02/15/25 10:00 02/17/25 09:07 81 MG Clopidogrel Bisulfate 75 mg DAILY PO 02/15/25 10:00 02/17/25 09:07 75 MG Ipratropium [place] 0.5 mg Q6HPRN PRN NEB 02/15/25 10:15 02/16/25 21:57 0.5 MG Clonazepam 0.5 mg Q8HP PRN PO 02/15/25 10:15 Gabapentin 100 mg HS PO 02/15/25 22:00 02/16/25 22:10 100 MG Hydromorphone HCl 0.75 mg Q4HPRN PRN IV 02/16/25 10:38 02/17/25 09:09 0.75 MG Lactulose 30 ml BID PO 02/16/25 15:30 02/16/25 22:08 30 ML Laboratory Results Laboratory Tests 02/15/25 10:30 Urinalysis Test 02/11/25 16:20 Urine Color Yellow (Yellow) Urine Clarity Clear (Clear) Urine pH 5.5 (5.0-9.0) Urine Specific [place] 1.022 (1.001-1.035) Urine Protein Negative (Negative) Urine Ketones Negative (Negative) Urine Blood Negative /uL (Negative) Urine Nitrite Negative (Negative) Urine Bilirubin Negative (Negative) Urine Urobilinogen Normal mg/dL (Negative) Urine Leukocyte Esterase 1+ /uL (Negative) Urine RBC 3 /hpf (0 - 4) Urine Microscopic WBC 23 /HPF (0-5) H Urine Squamous Epithelial Cells Few /hpf (<5) Urine Bacteria Few /hpf (None Seen) H Urine Mucus Few (None Seen) Urine Glucose Normal mg/dL (Normal) Microbiology Microbiology Date/Time Source Procedure Growth Status 02/11/25 08:00 Nose MRSA Screen - Final Complete Labs and/or images reviewed: Labs reviewed by me, Image(s) reviewed by me Assessment/Plan Assessment/Plan 79-year-old female presents for evaluation of left hip pain. Patient reports her left leg giving out while using her walker and falling onto her left side. She complaints of worsening left hip pain. Of note, patient was admitted a week ago and evaluated for left hip surgery due to fracture. Patient opted to be discharged home and be seen as an outpatient. Today she returns and wants to be evaluated again for surgery. 02/11. : Consult for ortho has been placed, pending recs. We will make patient NPO midnight preemptively, labs in a.m.. Until then continue pain control. Patient wants Joshi she has trouble moving, we will get UA. Patient wants DNR as per her prior decision. We will give eyedrops due to dry. 02/12: Patient continues to left hip pain. Asking for increase pain meds, increasing Dilaudid, pending cardiology clearance for preop, UA still concerning for UTI, she is complaining of urinary symptoms. She has allergies to ceftriaxone, given prior history we will start with meropenem 1 g t.i.d.. 02/15: Patient went to OR yesterday for repair left hip fracture., unclear if patient is WBAT or and WP on left side but PT is following. We will continue to follow up for PT recommendations, we will likely need rehab. Keeps asking for increasing pain medication doses, appears to be comfortable. We will continue Dilaudid 0.5, she also is asking for Klonopin p.o. for? Restless leg for Parkinson's, she does have this medication at home, we will continue low-dose. 02/16: Patient asking for increase Dilaudid dose, we will increase to 0.75 q.4. Waiting for PT eval today. Likely we will need rehab. Patient is weight- bearing as tolerated unaffected left leg status post repair for left hip fracture. 02/17: PT to eval today, we will finalize disposition soon as PT eval was done., likely we will need SNF rehab. dx: acute Left hip fracture Acute kidney injury Acute cystitis, recurrent Chronic anemia Anxiety Asthma Coronary artery disease COPD History of CVA Hypertension Mixed hyperlipidemia Status post pacemaker Status post CABG plan: Pain control PRN IV fluids Ortho consult Continue other home medications, Lipitor, Plavix, Ranexa ER, Aldactone,. Med surge DNR Plan discussed with: Patient My Orders Orders - DELFINO VICENTE MD Procedure Category Date Status Time Lactulose Oral PHA 02/16/25 In Process 15:30 Date of Service: Feb 17, 2025 Billing Provider: DELFINO VICENTE MD Common Visit Codes: [id number] INP/OBS CARE(HIGH) DELFINO VICENTE MD Feb 17, 2025 11:33
[2025-02-18] VITALS (10 sets, daily range): BP systolic 90–113; BP diastolic 39–62; PULSE 61–77; RESP 16–17; TEMP 97.4–98.4; O2SAT 93–100
--- NOTE | 2025-02-18 07:21 | DVHPN2 ---
Progress Note - Dictate Date Seen: Feb 18, 2025 Has the PT tested + for MRSA If YES, has PT been informed?: No Medical Necessity Reason Pt with a Central, PICC or Fol: No vital signs Vital Sign Date Time Temp Pulse Resp B/P (MAP) Pulse Ox O2 Delivery O2 Flow Rate FiO2 02/18/25 06:50 68 17 108/46 02/18/25 05:00 97.4 97 97.4 02/17/25 20:06 Nasal Cannula* 2 28 Total Intake and Output 02/17/25 02/17/25 02/18/25 15:00 23:00 07:00 Intake Total 600 ml 467 ml Balance 600 ml 467 ml medications Current Medications Medications Dose Ordered Sig/Asha Route Start Time Stop Time Status Last Admin Dose Admin Ranolazine 500 mg BID PO 02/11/25 10:00 02/17/25 21:16 500 MG Atorvastatin Calcium 40 mg HS PO 02/11/25 22:00 02/17/25 21:17 40 MG Acetaminophen 650 mg Q6HP PRN PO 02/10/25 23:30 02/11/25 20:10 650 MG Artificial Tears 1 drop [id number] PRN EACHEYE 02/11/25 15:00 Amiodarone HCl 100 mg HS PO 02/12/25 22:00 02/17/25 21:17 100 MG Metoprolol Succinate 25 mg DAILY PO 02/12/25 10:00 02/15/25 09:03 25 MG Meropenem 50 ml @ 17 mls/hr Q8HR IV 02/12/25 14:00 02/18/25 05:14 17 MLS/HR Oxycodone/ Acetaminophen 1 tab Q6HP PRN PO 02/13/25 12:45 02/14/25 18:09 1 TAB Ondansetron HCl 4 mg Q4HPRN PRN IV 02/13/25 12:45 02/18/25 06:46 4 MG Lactated Ringer's 1,000 ml @ 100 mls/hr Q10H IV 02/14/25 14:30 02/16/25 17:10 100 MLS/HR Sodium Chloride 10 ml Q8HR IV 02/14/25 22:00 02/18/25 05:14 10 ML Enoxaparin Sodium 40 mg DAILY SC 02/15/25 10:00 02/17/25 09:06 40 MG Oxycodone HCl 10 mg ONCE PRN PO 02/14/25 14:45 02/17/25 18:14 10 MG Spironolactone 25 mg DAILY PO 02/15/25 10:00 02/17/25 09:07 25 MG Sacubitril/ Valsartan 2 tab BID PO 02/15/25 10:00 02/17/25 09:07 2 TAB Aspirin 81 mg DAILY PO 02/15/25 10:00 02/17/25 09:07 81 MG Clopidogrel Bisulfate 75 mg DAILY PO 02/15/25 10:00 02/17/25 09:07 75 MG Ipratropium [place] 0.5 mg Q6HPRN PRN NEB 02/15/25 10:15 02/17/25 20:06 0.5 MG Clonazepam 0.5 mg Q8HP PRN PO 02/15/25 10:15 Gabapentin 100 mg HS PO 02/15/25 22:00 02/17/25 21:17 100 MG Hydromorphone HCl 0.75 mg Q4HPRN PRN IV 02/16/25 10:38 02/18/25 06:50 0.75 MG Lactulose 30 ml BID PO 02/16/25 15:30 02/16/25 22:08 30 ML laboratory and microbiology Laboratory Tests 02/15/25 10:30 Test 02/15/25 10:30 Range/Units Serum Glucose 221 H 74-106 mg/dL Assessment/Plan s/p ortho surgery Patient is a 79-year-old female who presented to the hospital after fall in assisted living facility. She was recently in the hospital for the same and at that point she was found to have hip fracture. At that point the patient was seen by Cardiology and Orthopedics. At that point, the suggestion by Orthopedics was to proceed with hip surgery after cardiac clearance. Patient was risk stratified by Cardiology/us. Patient herself decided against any surgery at that point. At this time, the patient is reconsidering the offer for surgery. Cardiology is involved for cardiac catheterization with self-care and cardiac risk stratification. Patient herself is known to have coronary artery disease for which she is status post previous 3-V CABG with most recent PCI involving LAD 08/26/2024 on DAPT (Plavix/Aspirin). She is furthermore known to have baseline history ischemic cardiomyopathy with last known LVEF of 10% as per Echocardiogram findings 11/30/2024 which she is status post previous Biotronik biventricular AICD implantation. Recent device interrogation performed in November of 2024 during previous admission had revealed an overall appropriate functioning device. At present denies any active chest pains, shortness of breath, palpitations, dizziness, syncope, orthopnea, paroxysmal nocturnal dyspnea, or any further cardiac related symptoms. Not in acute distress. No JVD. Mucosa is pink and wet. No carotid bruit. Not using accessory muscles of breathing. Lungs are clear to auscultation. Cardiac: Regular, no thrill/gallop. Systolic murmur 2/6 in apex is heard. Abdomen is soft. Bowel sound is positive. No hepatomegaly. Extremities do not reveal edema. Dorsalis pedis is 2+ bilateral Past medical history includes hypertension, hyperlipidemia, coronary artery disease, history of CABG (2010), systolic heart failure, ischemic cardiomyopathy, gout, kidney stone, s/p ESWL, frequent UTI, history of CVA, Diverticulosis, COPD, Emphysema, s/p COVID, depression, Anxiety, GERD, history of appendectomy/hysterectomy/tonsillectomy, and history of BiV ICD (Biotronik) implantation. She is chronically wheelchair-bound. She was previously in hospice for heart failure. She is allergic to codeine. She quit smoking years ago. She is DNR. She also has diagnosis of parkinsonism. Cardiac catheterization of August 26, 2024 (performed in [facility]) revealed triple-vessel [place] coronary artery disease. EGG PASTEURIZER of obtuse marginal. EGG PASTEURIZER of RCA. Lad with 75% lesion and status post drug-eluting stent deployment. It is of note that there is patent SVG to obtuse marginal and also patent SVG to RCA. Cardiac catheterization of September 2020 revealed ejection fraction of 20%, EGG PASTEURIZER of SVG to diagonal, patent TAN, patent SVG to OM, patent SVG to PDA and EGG PASTEURIZER of RCA. Echocardiogram of November 30, 2024 revealed Dilated left ventricle, LVEF of around 10%. Pacing wire was seen in the right-sided chambers. There was mild mitral regurgitation. There was trace tricuspid regurgitation. As there was no good tricuspid regurgitation jet, right ventricular systolic pressure could not be estimated. Echocardiogram of September 04, 2024 reported: Dilated left ventricle. LVEF of 10%. Increased EDP. Pacing wire in right-sided chambers. Mild mitral regurgitation. As there was no good tricuspid regurgitation jet, right ventricular systolic pressure could not be estimated Echocardiogram of August 25, 2024 (performed in [facility]) for PE old ejection fraction of 20% Echocardiogram of reported: LV EF of 15-20%, biatrial enlargement, pacing wire in the right-sided chambers. Echocardiogram of November 22, 2023 revealed: Dilated left ventricle, LVEF of 10%, pacing wire and right-sided chambers, mild mitral regurgitation. Echocardiogram of August 28, 2023 revealed: Dilated left ventricle with significantly reduced systolic function. LVEF of 20%. Elevated LVEDP, dilated four chambers. Pacing wire was seen in right-sided chamber. [id number] MR. Echocardiogram of January 03, 2023 revealed ejection fraction of 20 to 25% and mild left ventricular enlargement Echocardiogram of March 25, 2023 (performed in the office) revealed four- chamber dilatation, LVEF of 20 to 25%, mild to moderate MR, mild TR, trace pulmonary valve insufficiency and right ventricular systolic pressure of 35 mmHg Echocardiogram of March 21, 2022 revealed ejection fraction of around 20%, mild MR/TR Echocardiogram of February 17, 2021 revealed dilated LV, LVEF around 25%, severe diffuse hypokinesis, increased LVEDP, dilated left and right atria, mild to moderate MR, mild TR. Echocardiogram of December 30, 2020 reported ejection fraction less than 20% and dilated left atrium. Echocardiogram of August 2020 revealed ejection fraction less than 25%, right atrial enlargement, left atrial enlargement and moderate MR. Creatinine: 1.04 - 1.29 - 1.15 - 0.88 - 0.99 - 1.24 Potassium: 4.8 - 4.6 - 4.6 - 6.1 - 4.0 - 4.4 - 4.[address] revealed: IMPRESSION: 1. Arthritic changes of both hips right slightly worse than left. 2. No fractures of the proximal femurs. 3. 4-5 mm calculus in the distal right ureter near the ureterovesical junction. (Series 2 images 75-78). 4. Bilateral laminectomy from L3 through S1. 5. Bony fusion of the facets bilaterally from L3 through S1. Hip x-ray revealed: FINDINGS/IMPRESSION: Nondisplaced fracture of the left greater trochanter. Bone scan revealed: IMPRESSION: Increased activity is present in the left intertrochanteric femur region on flow and delayed static images. This is a nonspecific finding but may represent inflammatory changes associated with fracture. Chest xry revealed: IMPRESSION: 1. No acute cardiopulmonary disease. 2. Significant change from 02/05/2025 EKG reveals paced ventricular rhythm Patient is an 79-year old female known outside to our practice who initially presented with left-sided hip pain status post reported fall with diagnosis of left hip fracture. In previous hospitalization patient was not in favor of orthopedic surgery/management. At that point, Cardiology services were requested for cardiac pre-operative risk assessment. Patient herself is known to have coronary artery disease for which she is status post previous 3-V CABG with most recent PCI involving LAD 08/26/2024 on DAPT (Plavix/Aspirin). She is furthermore known to have baseline history ischemic cardiomyopathy with last known LVEF of 10% as per Echocardiogram findings 11/30/2024 which she is status post previous Biotronik biventricular AICD implantation. Recent device interrogation performed in November of 2024 during previous admission had revealed an overall appropriately functioning device. At present, initial 12-lead electrocardiogram had revealed an A-V paced rhythm. At present denies any active chest pains, shortness of breath, palpitations, dizziness, syncope, orthopnea, paroxysmal nocturnal dyspnea, or any further cardiac related symptoms. Evidence for left hip fracture? Coronary artery disease, status post previous CABG/PCI Presence of Biotronik biventricular AICD Ischemic cardiomyopathy, history of Hypertension, controlled Hyperlipidemia Acute cystitis s/p ortho surgery CARDIAC SUGGESTIONS FOR MANAGEMENT: Recognizing the above mentioned, cardiac-monge the patient is considered compensated at this point. Cardiac-monge, Niya is considered moderate-risk patient for tentative plan of undergoing moderate-risk ORIF involving left hip fracture under appropriate intra-operative and post-operative cardiac/hemodynamic monitoring with further recommendation to avoid hypotension. You can hold aspirin/Plavix prior to procedure and restart after procedure. s/p ortho surgery without immediate complication. Ortho follow up DAPT (Aspirin/Plavix) to be restarted Restart aspirin/Plavix, if there is no plan for surgery or the decision is made against surgery Proceed with GDMT for systolic heart failure as concurrent conditions permit Toprol-XL/Entresto/Aldactone/Ranolazine/Atorvastatin Proceed with optimized medical therapy/risk factor modification Follow up orthopedic surgery recommendations Proceed with close observation for overt signs of fluid overload Proceed with strict intakes, outputs, and daily weights Proceed with close rate and rhythm surveillance Proceed with close hemodynamic surveillance Proceed with optimized blood pressure control Transfuse to sustain HGB level above 7.0 Sustain Magnesium level greater than 2.0 Sustain Potassium level greater than 4.0 Follow up renal function and electrolytes Management in telemetry Will proceed to follow from a cardiac perspective Further recommendations per clinical progression Cardiac monge, stable All available diagnostic labs, EKG's, and images were personally reviewed Prognosis: Guarded A total of 55 minutes was spent reviewing the patient record, examining the patient, making a diagnostic and therapeutic plan, discussing this plan with medical personnel, following up on diagnostic studies and following the patient for clinical stability excluding any and all procedures. At least 50% of this time was spent in direct, [id number] contact. Thank you for allowing me to participate in this patient's care. Further recommendations will depend on patient's clinical course. Please do not hesitate to contact me if you have any questions or concerns. This medical document was created using electronic medical record system with [employer] computerized dictation system. Although this document has been carefully reviewed, there may still be some phonetic and typographical errors. These areas are purely typographical due to the imperfection of the software programs, and do not reflect any compromise in the patient's medical care. Dietary Evaluation Review Recommendations by RD: Dietary education by RD Comments: 1) Advance to 60g CCHO cardiac diet when medically feasible 2) Encourage optimal PO intake 3) Collect HbA1c 4) Refer to outpatient RD/CDCES for weight management 5) Follow-up with orthopedic surgeon, cardiology, pulmonology, and nephrology 6) Continue to monitor I&O, labs, and skin integrity Expected Outcomes/Goals: 1) labs to improve 2) diet to advance 3) gradual wt loss 4) f/u in 3-5 days Plan discussed with: Patient, Other (nurse) RODRIGUEZ LEBRON MD Feb 18, 2025 07:21
--- NOTE | 2025-02-18 07:42 | DVHDS2 ---
Discharge Summary Date of Admission Feb 10, 2025 at 23:25 Date of Discharge: Feb 18, 2025 Labs/Diagnostic Data: Laboratory Results Test 02/15/25 10:30 02/13/25 10:10 02/12/25 05:22 02/11/25 16:20 White Blood Count 10.9 10^3/uL (4.4-10.8) Red Blood Count 3.92 10^6/uL (4.0-5.20) Hemoglobin 11.7 g/dL (12.2-16.2) Hematocrit 34.8 % (36.0-46.0) Mean Corpuscular Volume 88.8 fL (80.0-100.0) Mean Corpuscular Hemoglobin 29.8 pg (28.0-32.0) Mean Corpuscular Hemoglobin Concent 33.6 g/dL (32.0-36.0) Red Cell Distribution Width 16.4 % (11.8-14.3) Platelet Count 289 10^3/uL (140-450) Mean Platelet Volume 7.9 fL (6.9-10.8) Neutrophils (%) (Auto) 88.7 % (37.0-80.0) Lymphocytes (%) (Auto) 7.3 % (10.0-50.0) Monocytes (%) (Auto) 3.9 % (0.0-12.0) Eosinophils (%) (Auto) 0.0 % (0.0-7.0) Basophils (%) (Auto) 0.1 % (0.0-2.0) Neutrophils # (Auto) 9.7 10 ^3/uL (1.6-8.6) Lymphocytes # (Auto) 0.8 10 ^3/uL (0.4-5.4) Monocytes # (Auto) 0.4 10 ^3/uL (0-1.3) Eosinophils # (Auto) 0 10 ^3/uL (0-0.8) Basophils # (Auto) 0 10 ^3/uL (0-0.2) Nucleated Red Blood Cells 0.1 % Sodium Level 140 mmol/L (136-145) Potassium Level 4.5 mmol/L (3.5-5.1) Chloride Level 107 mmol/L (98-107) Carbon Dioxide Level 24 mmol/L (20-31) Anion Gap 9 (5-15) Blood Urea Nitrogen 36 mg/dL (9-23) Creatinine 1.24 mg/dL (0.550-1.02) Glomerular Filtration Rate Calc 44 mL/min (>90) BUN/Creatinine Ratio 29.0 (10.0-20.0) Serum Glucose 221 mg/dL (74-106) Calcium Level 9.1 mg/dL (8.7-10.4) Magnesium Level 1.7 mg/dL (1.6-2.6) Total Bilirubin 0.4 mg/dL (0.2-1.0) Aspartate Amino Transferase (AST) 19 U/L (13-40) Alanine Aminotransferase (ALT) < 9 U/L (7-40) Alkaline Phosphatase 116 U/L (46-116) Total Protein 5.7 g/dL (5.7-8.2) Albumin 3.9 g/dL (3.2-4.8) POC Glucose 371 mg/dl (70-106) Prothrombin Time 10.7 sec (9.3-11.8) Prothrombin Time INR 1.01 (0.9-1.15) Urine Color Yellow (Yellow) Urine Clarity Clear (Clear) Urine pH 5.5 (5.0-9.0) Urine Specific [place] 1.022 (1.001-1.035) Urine Protein Negative (Negative) Urine Ketones Negative (Negative) Urine Blood Negative /uL (Negative) Urine Nitrite Negative (Negative) Urine Bilirubin Negative (Negative) Urine Urobilinogen Normal mg/dL (Negative) Urine Leukocyte Esterase 1+ /uL (Negative) Urine RBC 3 /hpf (0 - 4) Urine Microscopic WBC 23 /HPF (0-5) Urine Squamous Epithelial Cells Few /hpf (<5) Urine Bacteria Few /hpf (None Seen) Urine Mucus Few (None Seen) Urine Glucose Normal mg/dL (Normal) Test 02/10/25 23:58 Activated Partial Thromboplast Time 32.0 SEC (24.5-34.5) Other Laboratory Tests 02/15/25 10:30 Brief Hx & Hospital Course: 79-year-old female presents for evaluation of left hip pain. Patient reports her left leg giving out while using her walker and falling onto her left side. She complaints of worsening left hip pain. Of note, patient was admitted a week ago and evaluated for left hip surgery due to fracture. Patient opted to be discharged home and be seen as an outpatient. Today she returns and wants to be evaluated again for surgery. 02/11. : Consult for ortho has been placed, pending recs. We will make patient NPO midnight preemptively, labs in a.m.. Until then continue pain control. Patient wants Joshi she has trouble moving, we will get UA. Patient wants DNR as per her prior decision. We will give eyedrops due to dry. 02/12: Patient continues to left hip pain. Asking for increase pain meds, increasing Dilaudid, pending cardiology clearance for preop, UA still concerning for UTI, she is complaining of urinary symptoms. She has allergies to ceftriaxone, given prior history we will start with meropenem 1 g t.i.d.. 02/15: Patient went to OR yesterday for repair left hip fracture., unclear if patient is WBAT or and WP on left side but PT is following. We will continue to follow up for PT recommendations, we will likely need rehab. Keeps asking for increasing pain medication doses, appears to be comfortable. We will continue Dilaudid 0.5, she also is asking for Klonopin p.o. for? Restless leg for Parkinson's, she does have this medication at home, we will continue low-dose. 02/16: Patient asking for increase Dilaudid dose, we will increase to 0.75 q.4. Waiting for PT eval today. Likely we will need rehab. Patient is weight- bearing as tolerated unaffected left leg status post repair for left hip fracture. 02/17: PT to eval today, we will finalize disposition soon as PT eval was done., likely we will need SNF rehab.PT recommends SNF, left leg WBAT dx: acute Left hip fracture , Nondisplaced left proximal femur intertrochanteric fracture s/p repair cephalomedullary nail Acute kidney injury Acute cystitis, recurrent Chronic anemia Anxiety Asthma Coronary artery disease COPD History of CVA Hypertension Mixed hyperlipidemia Status post pacemaker Status post CABG plan: - transfer to SNF - continue home meds Condition at Discharge: Stable Final Diagnosis/Problems List acute Left hip fracture , Nondisplaced left proximal femur intertrochanteric fracture s/p repair cephalomedullary nail Acute kidney injury Acute cystitis, recurrent Chronic anemia Anxiety Asthma Coronary artery disease COPD History of CVA Hypertension Mixed hyperlipidemia Status post pacemaker Status post CABG Discharge Disposition: Senior Living Facility Discharge Instruct/Medications Scheduled Ascorbic Acid (Vitamin C Tablet), 1 TAB PO BID, (Reported) Aspirin (Aspir-Low), 1 TAB PO DAILY, (Reported) Atorvastatin Calcium (Atorvastatin Calcium), 40 MG PO HS Cholecalciferol (Vitamin D3), 1 TAB PO BID, (Reported) Ciprofloxacin Hcl (Cipro), 250 MG PO BID Clopidogrel Bisulfate (Clopidogrel), 75 MG PO DAILY Duloxetine Hydrochloride (Duloxetine Hydrochloride), 30 MG PO DAILY Fluticasone-Salmeterol (Fluticasone Propionate/SA 250-50 Mcg/Dose), 1 PUFF INH BID, (Reported) Levofloxacin Hemihydrate (Levofloxacin), 750 MG PO DAILY Metoprolol Succinate (Metoprolol Succinate Er), 1 TAB PO DAILY Multiple Vitamin (Tab-A-Radha), 1 TAB PO DAILY, (Reported) Oxybutynin Chloride (Oxybutynin Chloride), 5 MG PO Q8HR Oxycodone W/ Acetaminophen (Percocet 5/325MG), 1 TAB PO QID Pantoprazole Sodium Sesquihydr (Pantoprazole Sodium), 1 TAB PO DAILY, (Reported) Phenazopyridine HCl (Eq Urinary Pain Relief Ma), 99.5 MG PO TID Ranolazine (Ranolazine ER), 500 MG PO BID Spironolactone (Aldactone), 25 MG PO DAILY Scheduled PRN Albuterol Sulfate (Albuterol Sulfate Hfa), 2 PUFF INH Q4HPRN PRN for dyspnea, (Reported) Ipratropium-Albuterol (Ipratropium [place]/Albut), 1 VIAL NEB Q6HPRN PRN for SHORTNESS OF BREATH, (Reported) Oxycodone W/ Acetaminophen (Percocet 5/325MG), 1 TAB PO QID PRN Polyethylene Glycol 3350 (Miralax), 17 GM PO DAILY PRN for FOR CONSTIPATION, (Reported) Discharge Statement: "Patient was advised to return to the ER or call 911 if any headaches, dizziness, shortness of breath, chest pain, abdominal pain, bleeding, fevers, or worsening of medical condition. Patient was counseled about treatment plan, medications, possible side effects, patientverbalized understanding. All questions were answered to the best of my ability. This discharge took greater then 30 minutes in planning, reviewing documentation, counseling the patient, and discussing with other team members." Date of Service: Feb 18, 2025 Billing Provider: DELFINO VICENTE MD Common Visit Codes: 50190-FIZ/OBS DISCH DAY >30min DELFINO VICENTE MD Feb 18, 2025 07:42
--- NOTE | 2025-02-18 17:05 | DVHPN2 ---
Subjective Having hip pain, seen at bedside today,. Reviewed: H&P Changes from previous H/P or p: No Changes General: Per HPI Objective Vitals Vital Signs Date Time Temp Pulse Resp B/P (MAP) Pulse Ox O2 Delivery O2 Flow Rate FiO2 02/18/25 13:21 98.4 67 17 96 02/18/25 13:00 90/56 (67) 02/18/25 10:36 2.0 28 02/18/25 10:00 Nasal Cannula Intake/Output Intake and Output 02/18/25 07:00 Intake Total 1067 ml Balance 1067 ml Intake Oral 1017 ml IV Total 50 ml # Voids 5 # Bowel Movements 2 Exam Gen: 79-year-old female in mild distress Skin: Warm, dry, normal color and texture, no rash. HEENT: Normocephalic atraumatic, mucous membranes moist and pink. Neck: Cervical and supraclavicular nodes normal without enlargement, trachea is midline, thyroid gland is normal without masses. Pulmonary: Clear to auscultation and percussion bilaterally. Cardiac: Regular rate and rhythm. No murmur Abdomen: Soft, nontender, nondistended, bowel sounds present all 4 quadrants, no guarding, no rigidity, no organomegaly. Extremities: No cyanosis, clubbing, no edema Neuro: Cranial nerves II through XII grossly intact, normal affect and speech, no focal motor deficits. General Appearance: Alert, Oriented X3, Cooperative, No acute distress, mild distress Lungs: Clear to auscultation Cardiovascular: Normal S1, Normal S2 Abdomen: Normal bowel sounds, Soft, No tenderness, No hepatospenomegaly Musculoskeletal: Normal sensory function, Normal motor function Neuro: Normal speech, Strength at 5/5 X4 ext, Normal tone, Sensation intact, C ranial nerves 3-12 NL Psych/Mental Status: Mental status NL Laboratory Results Laboratory Tests 02/15/25 10:30 Urinalysis Test 02/11/25 16:20 Urine Color Yellow (Yellow) Urine Clarity Clear (Clear) Urine pH 5.5 (5.0-9.0) Urine Specific [place] 1.022 (1.001-1.035) Urine Protein Negative (Negative) Urine Ketones Negative (Negative) Urine Blood Negative /uL (Negative) Urine Nitrite Negative (Negative) Urine Bilirubin Negative (Negative) Urine Urobilinogen Normal mg/dL (Negative) Urine Leukocyte Esterase 1+ /uL (Negative) Urine RBC 3 /hpf (0 - 4) Urine Microscopic WBC 23 /HPF (0-5) H Urine Squamous Epithelial Cells Few /hpf (<5) Urine Bacteria Few /hpf (None Seen) H Urine Mucus Few (None Seen) Urine Glucose Normal mg/dL (Normal) Microbiology Microbiology Date/Time Source Procedure Growth Status 02/11/25 08:00 Nose MRSA Screen - Final Complete Labs and/or images reviewed: Labs reviewed by me, Image(s) reviewed by me Assessment/Plan Assessment/Plan 79-year-old female presents for evaluation of left hip pain. Patient reports her left leg giving out while using her walker and falling onto her left side. She complaints of worsening left hip pain. Of note, patient was admitted a week ago and evaluated for left hip surgery due to fracture. Patient opted to be discharged home and be seen as an outpatient. Today she returns and wants to be evaluated again for surgery. 02/11. : Consult for ortho has been placed, pending recs. We will make patient NPO midnight preemptively, labs in a.m.. Until then continue pain control. Patient wants Joshi she has trouble moving, we will get UA. Patient wants DNR as per her prior decision. We will give eyedrops due to dry. 02/12: Patient continues to left hip pain. Asking for increase pain meds, increasing Dilaudid, pending cardiology clearance for preop, UA still concerning for UTI, she is complaining of urinary symptoms. She has allergies to ceftriaxone, given prior history we will start with meropenem 1 g t.i.d.. 02/15: Patient went to OR yesterday for repair left hip fracture., unclear if patient is WBAT or and WP on left side but PT is following. We will continue to follow up for PT recommendations, we will likely need rehab. Keeps asking for increasing pain medication doses, appears to be comfortable. We will continue Dilaudid 0.5, she also is asking for Klonopin p.o. for? Restless leg for Parkinson's, she does have this medication at home, we will continue low-dose. 02/16: Patient asking for increase Dilaudid dose, we will increase to 0.75 q.4. Waiting for PT eval today. Likely we will need rehab. Patient is weight- bearing as tolerated unaffected left leg status post repair for left hip fracture. 02/17: PT to eval today, we will finalize disposition soon as PT eval was done., likely we will need SNF rehab. 02/18: Patient continues to work with PT, patient stable for discharge today and continue PT rehab at SNF facility. dx: acute Left hip fracture Acute kidney injury Acute cystitis, recurrent Chronic anemia Anxiety Asthma Coronary artery disease COPD History of CVA Hypertension Mixed hyperlipidemia Status post pacemaker Status post CABG plan: Pain control PRN IV fluids Ortho consult Continue other home medications, Lipitor, Plavix, Ranexa ER, Aldactone,. Med surge DNR Plan discussed with: Patient My Orders Orders - DELFINO VICENTE MD Procedure Category Date Status Time Discharge DISCHARGE 02/18/25 Transmitted 07:42 * Wraparound Facilitator CONS 02/18/25 Transmitted Consult Date of Service: Feb 18, 2025 Billing Provider: DELFINO VICENTE MD Common Visit Codes: [id number] INP/OBS CARE(MOD) DELFINO VICENTE MD Feb 18, 2025 17:05
== END 2025-02-18 16:00 | DRG 480 ==
LOC: EDBD 19:36 → ER 19:36 → OVERFLOW 23:25 → CENTRAL 02-11 04:43 → TELE-CENTR 02-12 08:30
PROVIDERS: ADMIT Student in an Organized Health Care Education/Training Program; ATTEND Student in an Organized Health Care Education/Training Program
PROC: 0QS736Z Reposition Left Upper Femur with Intramedullary Internal Fixation Device, Percutaneous Approach (ICD-10-PCS; principal; 2025-02-14 13:18)
DX: S72.145A Nondisplaced intertrochanteric fracture of left femur, initial encounter for closed fracture (principal); J96.01 Acute respiratory failure with hypoxia; I13.0 Hypertensive heart and chronic kidney disease with heart failure and stage 1 through stage 4 chronic kidney disease, or unspecified chronic kidney disease; I50.22 Chronic systolic (congestive) heart failure; N17.9 Acute kidney failure, unspecified; N20.1 Calculus of ureter; N30.00 Acute cystitis without hematuria; D64.9 Anemia, unspecified; E78.2 Mixed hyperlipidemia; F41.9 Anxiety disorder, unspecified; E87.5 Hyperkalemia; G20.A1 Parkinson's disease without dyskinesia, without mention of fluctuations; G47.00 Insomnia, unspecified; G25.81 Restless legs syndrome; I25.10 Atherosclerotic heart disease of native coronary artery without angina pectoris; J43.9 Emphysema, unspecified; J44.89 Other specified chronic obstructive pulmonary disease; F32.A Depression, unspecified; K21.9 Gastro-esophageal reflux disease without esophagitis; M10.9 Gout, unspecified; J45.909 Unspecified asthma, uncomplicated; W18.39XA Other fall on same level, initial encounter; N18.30 Chronic kidney disease, stage 3 unspecified; Z79.02 Long term (current) use of antithrombotics/antiplatelets; Z79.82 Long term (current) use of aspirin; Z79.899 Other long term (current) drug therapy; Z82.3 Family history of stroke; Z82.49 Family history of ischemic heart disease and other diseases of the circulatory system; Z83.3 Family history of diabetes mellitus; Z86.16 Personal history of COVID-19; Z86.73 Personal history of transient ischemic attack (TIA), and cerebral infarction without residual deficits; Z87.440 Personal history of urinary (tract) infections; Z87.442 Personal history of urinary calculi; Z87.891 Personal history of nicotine dependence; Z88.5 Allergy status to narcotic agent; Z90.49 Acquired absence of other specified parts of digestive tract; Z90.710 Acquired absence of both cervix and uterus; Z95.1 Presence of aortocoronary bypass graft; Z95.5 Presence of coronary angioplasty implant and graft; Z95.810 Presence of automatic (implantable) cardiac defibrillator; Z99.3 Dependence on wheelchair; Y93.89 Activity, other specified; Y92.89 Other specified places as the place of occurrence of the external cause; Y99.8 Other external cause status; Z88.1 Allergy status to other antibiotic agents
CPT/HCPCS: 36415; 71045; 73502; 74176; 76000; 78315; 80048; 80053; 81001; 82962; 83735; 84132; 85025; 85610; 85730; 86850; 86900; 86901; 87081; 93005; 94640; 97110; 97116; 97163; 97530; G0378; J0131; J0169; J1100; J1815; J1885; J2185; J2405; J2704; J3490

== ENCOUNTER 2025-03-17 14:59 | Inpatient (IN) | payer OTHER, MEDICAID ==
[~2025-03-17] VITALS: Ht 162.6 cm; Wt 66.3 kg
--- NOTE | 2025-03-17 15:21 | ED.PDOC ---
HPI Comments This is an 79-year-old female who comes in with chief complaint of chest pain. The patient states that the pain is substernal in nature x2 days. The pain is a 9/10. The patient is also having some lightheadedness as well as nausea and shortness a breath. She denies any cough or recent trauma to the chest. 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 She states that the pain feels somewhat similar. EN route, the EMS gave the patient aspirin x1. The patient is also on oxygen at 2 L nasal cannula for her COPD which was continued. The patient was given Zofran 4 mg p.o. because of the nausea. She is still complaining of some shortness for breath upon arrival. The patient states that she was making her bed when the chest pain started. Chief Complaint: Chest Pain Time Seen by MD: 15:05 Primary Care Provider: HORTENCIA Reviewed Notes: Nurses Notes, Dieing Out Machine Operator Notes, Medications, Allergies (Allergies listed above) Allergies: Coded Allergies: Ceftriaxone (Verified Allergy, Intermediate, generalized rash, 11/08/22) [facility] RE[employer] OMEGA MEJIA Hydrocodone (Verified Allergy, Unknown, rash, 05/18/23) tylenol is okay per patient Home Meds Active Scripts Ciprofloxacin Hcl (Cipro) 250 Mg Tab, 250 MG PO BID for 5 Days, #10 TAB Prov:YENNY FRAIRE MD 02/09/25 Oxycodone W/ Acetaminophen (Percocet 5/325MG) 1 Tab Tb, 1 TAB PO QID PRN, #20 TAB Prov:YENNY FARIRE MD 02/09/25 Levofloxacin Hemihydrate (LEVOFLOXACIN) 750 Mg Tab, 750 MG PO DAILY for 5 Days, #5 TAB Prov:PHILL LEAL RESDIENT 01/17/25 Oxycodone W/ Acetaminophen (Percocet 5/325MG) 1 Tab Tb, 1 TAB PO QID, #30 TAB Prov:JANE VEGA MD 09/29/24 Phenazopyridine HCl (Eq Urinary Pain Relief Ma) 99.5 Mg Tab, 99.5 MG PO TID for 10 Days, #30 TAB Prov:PHILL LEAL RESDIENT 09/23/24 Metoprolol Succinate (Metoprolol Succinate Er) 25 Mg Tab, 1 TAB PO DAILY for 30 Days, #30 TAB 5 Refills Prov:AXEL CARABALLO RESIDENT 09/06/24 Spironolactone (Aldactone) 25 Mg Tab, 25 MG PO DAILY for 30 Days, #30 TAB Prov:BHARAT MICHELLE RESIDENT 07/22/24 Oxybutynin Chloride (Oxybutynin Chloride) 5 Mg Tab, 5 MG PO Q8HR for 30 Days, #90 TAB Prov:BHARAT MICHELLE RESIDENT 07/22/24 Atorvastatin Calcium (ATORVASTATIN CALCIUM) 20 Mg Tab, 40 MG PO HS for 30 Days, #60 TAB Prov:BHARAT MICHELLE RESIDENT 07/22/24 Duloxetine Hydrochloride (Duloxetine Hydrochloride) 30 Mg Cap, 30 MG PO DAILY for 30 Days, #30 CAP Prov:WINSOME GOMEZ MD 04/29/24 Clopidogrel Bisulfate (CLOPIDOGREL) 75 Mg Tab, 75 MG PO DAILY for 30 Days, #30 TAB 5 Refills Prov:YENNY FRAIRE MD 11/26/23 Ranolazine (Ranolazine ER) 500 Mg Tab, 500 MG PO BID for 30 Days, #60 TAB 2 Refills Prov:MAGAN RUSS RESIDENT 09/16/23 Reported Medications Polyethylene Glycol 3350 (Miralax) 17 Gm Pow, 17 GM PO DAILY PRN for FOR CONSTIPATION for 30 Days, #30 01/28/24 Ipratropium-Albuterol (Ipratropium [place]/Albut) 1 Yuli Yuli, 1 VIAL NEB Q6HPRN PRN for SHORTNESS OF BREATH for 13 Days, #180 09/05/23 Fluticasone-Salmeterol (Fluticasone Propionate/SA 250-50 Mcg/Dose) 1 Aer Aer, 1 PUFF INH BID for 30 Days, #60 09/05/23 Albuterol Sulfate (Albuterol Sulfate Hfa) 108 Mcg/Act Aer, 2 PUFF INH Q4HPRN PRN for dyspnea for 17 Days, #18 09/05/23 Cholecalciferol (VITAMIN D3) 2,000 Unit Tab, 1 TAB PO BID for 30 Days, #60 08/28/23 Multiple Vitamin (Tab-A-Radha) Tab, 1 TAB PO DAILY for 30 Days, #30 08/28/23 Aspirin (Aspir-Low) 81 Mg Tab, 1 TAB PO DAILY for 30 Days, #30 08/28/23 Ascorbic Acid (VITAMIN C TABLET) 500 Mg Tb, 1 TAB PO BID for 30 Days, #60 05/18/23 Pantoprazole Sodium Sesquihydr (Pantoprazole Sodium) 40 Mg Tab, 1 TAB PO DAILY 05/18/23 Information Source: Patient, Emergency Med Personnel Mode of Arrival: EMS Severity: Moderate Timing: Days (Started two days ago) Duration: Since onset Prehospital treatment: ASA, Regional Safety Manager Location: Substernal Radiation: No Radiation Quality: Squeezing, Pressure Onset: At Rest Cardiac Risk Factors: Smoker, Family History, Hyperlipidemia, HTN PE Risk Factors: None History of: Similar pain in past, [place] Modifying Factors: Nothing Associated Signs and Symptoms: SOB, N/V, Other (Lightheadedness) Past Medical History PAST MEDICAL HISTORY: Anemia, Anxiety, Asthma, CAD, CHF, CKF, COPD, CVA, Depression, GERD, Gout, High Lipids, HTN, Kidney Stones, [place], UTI'S Surgical History: Appendectomy, CABG, Hysterectomy, Pacemaker, PTCA, 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 Surgical History (Other): Back surgery, left hip surgery on 02/13 of this year [employer] 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 Family History Family History: Reviewed,noncontributory to illness, Unknown Social History Smoker: Quit Greater Than 1 Year Alcohol: Denies ETOH Use Drugs: Denies Drug Use Lives In: Assisted Care Constitutional: denies: chills, diaphoresis, fatigue, fever, malaise, sweats, weakness, others EENTM: denies: blurred vision, double vision, ear bleeding, ear discharge, ear drainage, ear pain, ear ringing, eye pain, eye redness, hearing loss, mouth pain, mouth swelling, nasal discharge, nose bleeding, nose congestion, nose pain, photophobia, tearing, throat pain, throat swelling, voice changes, others Respiratory: reports: shortness of breath; denies: cough, hemoptysis, orthopnea, SOB at rest, SOB with excertion, stridor, wheezing, others Cardiovascular: reports: chest pain; denies: dizzy spells, diaphoresis, Dyspnea on exertion, edema, irregular heart beat, left arm pain, lightheadedness, palpitations, PND, syncope, others Gastrointestinal: denies: abdomen distended, abdominal pain, blood streaked bowels, constipated, diarrhea, dysphagia, difficulty swallowing, hematemesis, melena, nausea, poor appetite, poor fluid intake, rectal bleeding, rectal pain, vomiting, others Genitourinary: denies: abnormal vagina bleeding, burning, dyspareunia, dysuria, flank pain, frequency, hematuria, incontinence, pain, , vagina discharge, urgency, others Neurological: denies: dizziness, fainting, headache, left sided numbness, left sided weakness, numbness, paresthesia, pre-existing deficit, right sided numbness, right sided weakness, seizure, speech problems, tingling, tremors, weakness, others Musculoskeletal: denies: back pain, gout, joint pain, joint swelling, muscle pain, muscle stiffness, neck pain, others Integumetry: denies: bruises, change in color, change in hair/nails, dryness, laceration, lesions, lumps, rash, wounds, others Allergic/Immunocompromised: denies: Difficulty Healing, Frequent Infections, Hives, Itching, others Hematologic/Lymphatic: denies: anemia, blood clots, easy bleeding, easy bruising, swollen glands, others Endocrine: denies: excessive hunger, excessive sweating, excessive thirst, excessive urination, flushing, intolerance to cold, intolerance to heat, unexplained weight gain, unexplained weight loss, others Psychiatric: denies: anxiety, bipolar disorder, depression, hopeless, panic disorder, schizophrenia, sleepless, suicidal, others Physical Exam General Appearance: Moderate Distress, Obese HEENT: Normal ENT Inspection, Pharynx Normal, TMs Normal Neck: Full Range of Motion, Non-Tender, Normal, Normal Inspection Respiratory: Chest Non-Tender, Lungs Clear, No Accessory Muscle Use, No Respiratory Distress, Normal Breath Sounds Cardiovascular: No Edema, No JVD, No Murmur, No Gallop, Normal Peripheral Pulses, Regular Rate/Rhythm, Other (Pacemaker to the chest) Breast Exam: Deferred Gastrointestinal: No Organomegaly, Non Tender, No Pulsatile Mass, Normal Bowel Sounds, Soft Genitalia: Deferred Pelvic: Deferred Rectal: Deferred Extremities: No calf tenderness, Normal capillary refill, Normal inspection, Normal range of motion, Non-tender, No pedal edema Musculoskeletal : Apperance: Normal Neurologic: Alert, senior consumer insights consultant II-XII nml as Tested, No Motor Deficits, Normal Affect, Normal Mood, No Sensory Deficits Cerebellar Function: Normal Reflexes: Normal Skin: Dry, Normal Color, Warm Lymphatic: No Adenopathy EKG EKG : Pulse Rate (adult): 65 [place]: Normal Cardiac Rhythm: Paced Was a procedure done? Was a procedure done?: No CP Differential Dx Differential Diagnosis: Angina, [place], Pulmonary Embolus Differential Diagnosis: CHF Differential Diagnosis: Pericarditis X-Ray, Labs, Meds, VS Vital Signs Date Time Temp Pulse Resp B/P (MAP) Pulse Ox O2 Delivery O2 Flow Rate FiO2 03/17/25 17:29 69 03/17/25 15:21 65 03/17/25 15:07 65 03/17/25 15:03 99.0 78 16 119/62 96 99.0 Lab Test 03/17/25 17:38 03/17/25 15:43 Range/Units Troponin I High Sensitivity 23 22 </=34 ng/L White Blood Count 7.5 4.4-10.8 10^3/uL Red Blood Count 4.30 4.0-5.20 10^6/uL Hemoglobin 13.0 12.2-16.2 g/dL Hematocrit 38.9 36.0-46.0 % Mean Corpuscular Volume 90.6 80.0-100.0 fL Mean Corpuscular Hemoglobin 30.2 28.0-32.0 pg Mean Corpuscular Hemoglobin Concent 33.3 32.0-36.0 g/dL Red Cell Distribution Width 16.6 H 11.8-14.3 % Platelet Count 251 140-450 10^3/uL Mean Platelet Volume 8.3 6.9-10.8 fL Neutrophils (%) (Auto) 57.4 37.0-80.0 % Lymphocytes (%) (Auto) 27.2 10.0-50.0 % Monocytes (%) (Auto) 12.3 H 0.0-12.0 % Eosinophils (%) (Auto) 2.6 0.0-7.0 % Basophils (%) (Auto) 0.5 0.0-2.0 % Neutrophils # (Auto) 4.3 1.6-8.6 10 ^3/uL Lymphocytes # (Auto) 2.0 0.4-5.4 10 ^3/uL Monocytes # (Auto) 0.9 0-1.3 10 ^3/uL Eosinophils # (Auto) 0.2 0-0.8 10 ^3/uL Basophils # (Auto) 0 0-0.2 10 ^3/uL Nucleated Red Blood Cells 0.1 % Sodium Level 144 136-145 mmol/L Potassium Level 4.5 3.5-5.1 mmol/L Chloride Level 110 H 98-107 mmol/L Carbon Dioxide Level 23 20-31 mmol/L Anion Gap 11 5-15 Blood Urea Nitrogen 25 H 9-23 mg/dL Creatinine 1.21 H 0.550-1.02 mg/dL Glomerular Filtration Rate Calc 45 >90 mL/min BUN/Creatinine Ratio 20.7 H 10.0-20.0 Serum Glucose 103 74-106 mg/dL Calcium Level 9.3 8.7-10.4 mg/dL B-Type Natriuretic Peptide 564.93 0-100 pg/mL IMPRESSION: 1. No radiographic evidence of acute cardiopulmonary abnormality. Images Reviewed?: Images reviewed and evaluated by me Time of 1ST Reevaluation: 15:21 Reevaluation 1ST: Unchanged Patient Education/Counseling: Diagnosis, Treatment, Prognosis Family Education/Counseling: No Family Present SEPSIS Sepsis Screen Physician Orders Chest Portable (03/17/25 15:14) Heplock Iv (03/17/25 15:14) Regional Safety Manager (03/17/25 15:14) Blood Pressure (03/17/25 15:14) Oxygen (03/17/25 15:14) Pulse Oximetry (03/17/25 15:14) Urinalysis (03/17/25 15:14) Troponin-I Hs (03/17/25 18:14) Electrocardigram (03/17/25 16:14) Electrocardigram (03/17/25 18:14) Vital Signs Date Time Temp Pulse Resp B/P (MAP) Pulse Ox O2 Delivery O2 Flow Rate FiO2 03/17/25 17:29 69 03/17/25 15:21 65 03/17/25 15:07 65 03/17/25 15:03 99.0 78 16 119/62 96 99.0 Laboratory Tests Test 03/17/25 15:43 White Blood Count 7.5 10^3/uL (4.4-10.8) Departure 1 Departure Time of Disposition: 19:19 Impression: Primary Impression: Acute myocardial ischemia Additional Impression: Acute chest pain Disposition: 09 ADMITTED INPATIENT Admit to: Tele Condition: Fair Critical Care Note Critical Care Time?: Yes (45 min-critical care time only) Stability Stability form required: Yes Unstable for transfer: Telemetry monitoring (Telemetry monitoring required), ED Physician Assesment (Clinical assesment) Heart Score Heart Score: Heart Score Response (Comments) Value History Moderate Suspicious 1 EKG Repolarization Disturb 1 Age >65 2 Risk Factors >3 or Hx ASHD 2 Troponin Normal limit 0 Total 6 I personally scribed for CHUCK STEWART MD ([email or web address]) on 03/17/25 at 18:03. Electronically submitted by Natalio Baugh ([email or web address]). CHUCK STEWART MD Mar 17, 2025 15:21
[2025-03-17 16:23] LABS: Hematocrit 38.9 % (36.0-46.0); Hemoglobin 13.0 g/dL (12.2-16.2); Mean Corpuscular Hemoglobin 30.2 pg (28.0-32.0); Mean Corpuscular Volume 90.6 fL (80.0-100.0); Nucleated Red Blood Cells % 0.1 %
[2025-03-17 16:31] LABS: Potassium 4.5 mmol/L (3.5-5.1); Sodium 144 mmol/L (136-145)
[2025-03-17 16:32] LABS: Anion Gap 11 (5-15); Carbon Dioxide 23 mmol/L (20-31)
[2025-03-17 16:33] LABS: Calcium 9.3 mg/dL (8.7-10.4)
[2025-03-17 16:34] LABS: Chloride 110 mmol/L (98-107)
[2025-03-17 16:37] LABS: Glucose 103 mg/dL (74-106)
[2025-03-17 16:38] LABS: BUN/Creatinine Ratio 20.7 (10.0-20.0); Blood Urea Nitrogen 25 mg/dL (9-23)
--- NOTE | 2025-03-17 17:32 | DVH ---
CHEST RADIOGRAPH Indication: CP Technique: Single frontal view of the chest was obtained COMPARISON: XY CHEST XRAY 1 VIEW on DOS: 02/13/25, XY CHEST XRAY 1 VIEW on DOS: 02/05/25, XY CHEST PORT ABLE on DOS: 01/14/25, XY CHEST PORTABLE on DOS: 01/08/25, XY CHEST PORTABLE on DOS: 01/07/25 FINDINGS: Lines and Tubes: Pacemaker/ AICD in the left upper chest with multiple cardiac leads. Sternal wires in place. Lungs: Clear Pleura: No effusion. No pneumothorax. Cardiomediastinal contours: Unremarkable Bones: Unremarkable IMPRESSION: 1. No radiographic evidence of acute cardiopulmonary abnormality.
--- NOTE | 2025-03-17 18:38 | ECG ---
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
--- NOTE | 2025-03-17 21:14 | DVHHP2 ---
History of Present Illness HPI This is an 79-year-old female who comes in with chief complaint of chest pain. The patient states that the pain is substernal in nature x2 days. The pain is a 9/10. The patient is also having some lightheadedness as well as nausea and shortness a breath. She denies any cough or recent trauma to the chest. 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 She states that the pain feels somewhat similar. EN route, the EMS gave the patient aspirin x1. The patient is also on oxygen at 2 L nasal cannula for her COPD which was continued. The patient was given Zofran 4 mg p.o. because of the nausea. She is still complaining of some shortness for breath upon arrival. The patient states that she was making her bed when the chest pain started. Home Meds Active Scripts Ciprofloxacin Hcl (Cipro) 250 Mg Tab, 250 MG PO BID for 5 Days, #10 TAB Prov:YENNY FRAIRE MD 02/09/25 Oxycodone W/ Acetaminophen (Percocet 5/325MG) 1 Tab Tb, 1 TAB PO QID PRN, #20 T AB Prov:YENNY FRAIRE MD 02/09/25 Levofloxacin Hemihydrate (LEVOFLOXACIN) 750 Mg Tab, 750 MG PO DAILY for 5 Days, #5 TAB Prov:PHILL LEAL RESDIENT 01/17/25 Oxycodone W/ Acetaminophen (Percocet 5/325MG) 1 Tab Tb, 1 TAB PO QID, #30 TAB Prov:JANE VEGA MD 09/29/24 Phenazopyridine HCl (Eq Urinary Pain Relief Ma) 99.5 Mg Tab, 99.5 MG PO TID for 10 Days, #30 TAB Prov:PHILL LEAL RESDIENT 09/23/24 Metoprolol Succinate (Metoprolol Succinate Er) 25 Mg Tab, 1 TAB PO DAILY for 30 Days, #30 TAB 5 Refills Prov:AXEL CARABALLO RESIDENT 09/06/24 Spironolactone (Aldactone) 25 Mg Tab, 25 MG PO DAILY for 30 Days, #30 TAB Prov:BHARAT MICHELLE RESIDENT 07/22/24 Oxybutynin Chloride (Oxybutynin Chloride) 5 Mg Tab, 5 MG PO Q8HR for 30 Days, #90 TAB Prov:BHARAT MICHELLE RESIDENT 07/22/24 Atorvastatin Calcium (ATORVASTATIN CALCIUM) 20 Mg Tab, 40 MG PO HS for 30 Days, #60 TAB Prov:BHARAT MICHELLE RESIDENT 07/22/24 Duloxetine Hydrochloride (Duloxetine Hydrochloride) 30 Mg Cap, 30 MG PO DAILY for 30 Days, #30 CAP Prov:WINSOME GOMEZ MD 04/29/24 Clopidogrel Bisulfate (CLOPIDOGREL) 75 Mg Tab, 75 MG PO DAILY for 30 Days, #30 TAB 5 Refills Prov:YENNY FRAIRE MD 11/26/23 Ranolazine (Ranolazine ER) 500 Mg Tab, 500 MG PO BID for 30 Days, #60 TAB 2 Refills Prov:MAGAN RUSS RESIDENT 09/16/23 Reported Medications Polyethylene Glycol 3350 (Miralax) 17 Gm Pow, 17 GM PO DAILY PRN for FOR CONSTIPATION for 30 Days, #30 01/28/24 Ipratropium-Albuterol (Ipratropium [place]/Albut) 1 Yuli Yuli, 1 VIAL NEB Q6HPRN PRN for SHORTNESS OF BREATH for 13 Days, #180 09/05/23 Fluticasone-Salmeterol (Fluticasone Propionate/SA 250-50 Mcg/Dose) 1 Aer Aer, 1 PUFF INH BID for 30 Days, #60 09/05/23 Albuterol Sulfate (Albuterol Sulfate Hfa) 108 Mcg/Act Aer, 2 PUFF INH Q4HPRN PRN for dyspnea for 17 Days, #18 09/05/23 Cholecalciferol (VITAMIN D3) 2,000 Unit Tab, 1 TAB PO BID for 30 Days, #60 08/28/23 Multiple Vitamin (Tab-A-Radha) Tab, 1 TAB PO DAILY for 30 Days, #30 08/28/23 Aspirin (Aspir-Low) 81 Mg Tab, 1 TAB PO DAILY for 30 Days, #30 08/28/23 Ascorbic Acid (VITAMIN C TABLET) 500 Mg Tb, 1 TAB PO BID for 30 Days, #60 05/18/23 Pantoprazole Sodium Sesquihydr (Pantoprazole Sodium) 40 Mg Tab, 1 TAB PO DAILY 05/18/23 Past Medical History Patient Family History: Arthritis Cardiovascular disease G8 MOTHER, Onset:Unknown Cerebrovascular accident (CVA) G8 FATHER Coronary artery disease G8 MOTHER, Onset:Unknown FH: diabetes mellitus G8 MOTHER, Onset:Unknown FH: heart disease G8 MOTHER, Onset:Unknown FH: hypertension G8 MOTHER, Onset:Unknown FH: lupus 19 CHILD FH: myocardial infarction G8 MOTHER, Onset:Unknown Family history: Cardiovascular disease G8 MOTHER, Onset:Unknown G8 FATHER, Onset:Unknown Glaucoma G8 MOTHER, Onset:Unknown Review of Systems Constitutional: No symptom reported Pulmonary/Respiratory: Dyspnea Cardiovascular: Chest Pain Genitourinary: No symptom reported Skin: No symptom reported H&P Exam Vital Signs Vital Signs Date Time Temp Pulse Resp B/P (MAP) Pulse Ox O2 Delivery O2 Flow Rate FiO2 03/17/25 17:29 69 03/17/25 15:03 99.0 16 119/62 96 99.0 General Appeara: Well developed Head Exam: Normal inspection Neck Exam: Normal inspection Abdominal Exam: Normal bowel sounds Back Exam: Normal inspection SEPSIS Sepsis Screen Date sepsis recognized/suspect: Mar 17, 2025 Time Sepsis recognized/suspect: 1503 Recent Procedure: No On Antibiotic Therapy: No Respiratory Rate >20: No Heart Rate >90: No Temp<36 C (96.8 F) or >38.3 C: No SBP <90 or MAP <65 mmHG: No New Acute Mental Status Change: No Is the patient on CPAP, BIPAP,: No Physician Orders Chest Portable (03/17/25 15:14) Heplock Iv (03/17/25 15:14) Pool Coordinator (03/17/25 15:14) Blood Pressure (03/17/25 15:14) Oxygen (03/17/25 15:14) Pulse Oximetry (03/17/25 15:14) Urinalysis (03/17/25 15:14) Electrocardigram (03/17/25 16:14) Electrocardigram (03/17/25 18:14) Vital Signs Date Time Temp Pulse Resp B/P (MAP) Pulse Ox O2 Delivery O2 Flow Rate FiO2 03/17/25 17:29 69 03/17/25 15:21 65 03/17/25 15:07 65 03/17/25 15:03 99.0 78 16 119/62 96 99.0 Laboratory Tests Test 03/17/25 15:43 White Blood Count 7.5 10^3/uL (4.4-10.8) Labs/Xrays Labs Test 03/17/25 19:41 03/17/25 15:43 Range/Units Troponin I High Sensitivity 24 </=34 ng/L White Blood Count 7.5 4.4-10.8 10^3/uL Red Blood Count 4.30 4.0-5.20 10^6/uL Hemoglobin 13.0 12.2-16.2 g/dL Hematocrit 38.9 36.0-46.0 % Mean Corpuscular Volume 90.6 80.0-100.0 fL Mean Corpuscular Hemoglobin 30.2 28.0-32.0 pg Mean Corpuscular Hemoglobin Concent 33.3 32.0-36.0 g/dL Red Cell Distribution Width 16.6 H 11.8-14.3 % Platelet Count 251 140-450 10^3/uL Mean Platelet Volume 8.3 6.9-10.8 fL Neutrophils (%) (Auto) 57.4 37.0-80.0 % Lymphocytes (%) (Auto) 27.2 10.0-50.0 % Monocytes (%) (Auto) 12.3 H 0.0-12.0 % Eosinophils (%) (Auto) 2.6 0.0-7.0 % Basophils (%) (Auto) 0.5 0.0-2.0 % Neutrophils # (Auto) 4.3 1.6-8.6 10 ^3/uL Lymphocytes # (Auto) 2.0 0.4-5.4 10 ^3/uL Monocytes # (Auto) 0.9 0-1.3 10 ^3/uL Eosinophils # (Auto) 0.2 0-0.8 10 ^3/uL Basophils # (Auto) 0 0-0.2 10 ^3/uL Nucleated Red Blood Cells 0.1 % Sodium Level 144 136-145 mmol/L Potassium Level 4.5 3.5-5.1 mmol/L Chloride Level 110 H 98-107 mmol/L Carbon Dioxide Level 23 20-31 mmol/L Anion Gap 11 5-15 Blood Urea Nitrogen 25 H 9-23 mg/dL Creatinine 1.21 H 0.550-1.02 mg/dL Glomerular Filtration Rate Calc 45 >90 mL/min BUN/Creatinine Ratio 20.7 H 10.0-20.0 Serum Glucose 103 74-106 mg/dL Calcium Level 9.3 8.7-10.4 mg/dL B-Type Natriuretic Peptide 564.93 0-100 pg/mL Assessment/Plan Primary Diagnosis chest pain rule out ACS Chronic systolic heart failure due to ischemic cardiomyopathy Coronary artery disease, status post CABG Chronic kidney disease, stage 3a (GFR 45) Chest pain, non-ischemic in presentation Status post Biotronik ICD implantation History of cerebrovascular accident Depression and anxiety Urinary tract infection Hyperlipidemia Hypertension COPD, stable Acute kidney injury Urinary tract infection admitted consult to nephro consult to cardio time: >45 minutes in the coordination of care Plan discussed with: Patient BROWNLEANNA Cordova Felicity JC Mar 17, 2025 21:13
[2025-03-17] MEDS ORDERED: NITROGLYCERIN 0.4 MG SL TAB SL PRN (21:15)
[2025-03-17] MEDS ORDERED: ONDANSETRON HCL 4 MG/2 ML VIAL IV PRN (21:15)
[2025-03-17] MEDS ORDERED: ACETAMINOPHEN 325 MG TAB PO PRN (21:15)
[2025-03-17] MEDS ORDERED: HYDROcodone-ACET 5/325MG TAB PO PRN (21:15)
[2025-03-17] MEDS ORDERED: DOCUSATE SOD 100 MG CAP PO PRN (21:15)
[2025-03-17] MEDS ORDERED: MORPHINE SULFATE INJ 2 MG/ml SYRG IV PRN ×2 (21:15)
[2025-03-18 07:40] VITALS: PULSE 70; RESP 15; O2SAT 97
--- NOTE | 2025-03-18 08:03 | ECG ---
[facility] Test Date: 2025-03-17 Test Time: 15:07:06 Pat Name: MONICA JAMES Department: [facility] ED Patient ID: [id number] Room: [facility]7T Gender: F Medical Specialist: gurwinder : [id number] Requested By: CHUCK STEWART Order Number: [id number] Reading MD: Adair Mijares Measurements Intervals [place] Rate: 65 P: 22 DE: 207 QRS: 235 QRSD: 125 T: 130 QT: 461 QTc: 480 Interpretive Statements Atrial-sensed ventricular-paced rhythm No further analysis attempted due to paced rhythm Electronically Signed On 03-22-2025 14:20:28 PDT by Adair Mijares Please click the below link to view image of tracing.
[2025-03-18] MEDS ORDERED: MORPHINE SULFATE INJ 2 MG/ml SYRG IV PRN ×2 (10:15→10:30)
[2025-03-18] MEDS ORDERED: DOCUSATE SOD 100 MG CAP PO PRN (10:15)
[2025-03-18] MEDS ORDERED: HYDROcodone-ACET 5/325MG TAB PO PRN (10:15)
[2025-03-18] MEDS ORDERED: ACETAMINOPHEN 325 MG TAB PO PRN (10:15)
[2025-03-18] MEDS ORDERED: NITROGLYCERIN 0.4 MG SL TAB SL PRN (10:30)
[2025-03-18] MEDS: HYDROmorphone HCL 2 MG/ML VL/or syr IV ONE ×2 (11:04→11:41)
[2025-03-18 12:52] LABS: Urine Protein, UAD Negative (Negative)
[2025-03-18 17:00] VITALS: BP 129/79; PULSE 71; RESP 16; TEMP 98.8; O2SAT 96
[2025-03-18] MEDS: ONDANSETRON HCL 4 MG/2 ML VIAL IV PRN (17:38)
[2025-03-18] MEDS: HYDROmorphone HCL 2 MG/ML VL/or syr IV PRN (17:40)
[2025-03-18 20:00] VITALS: PULSE 65; RESP 18
[2025-03-18 21:00] VITALS: BP 114/64; PULSE 60; RESP 18; TEMP 97.8; O2SAT 96
[2025-03-19] VITALS (9 sets, daily range): BP systolic 108–147; BP diastolic 63–79; PULSE 60–84; RESP 16–20; TEMP 97.3–98.3; O2SAT 96–98
--- NOTE | 2025-03-19 21:26 | DVHPN2 ---
Progress Note Date Seen: Mar 18, 2025 Medical Necessity Reason Pt with a Central, PICC or Fol: No Objective vital signs Vital Sign Date Time Temp Pulse Resp B/P (MAP) Pulse Ox O2 Delivery O2 Flow Rate FiO2 03/19/25 18:40 61 18 128/63 03/19/25 17:00 98.3 96 98.3 03/19/25 08:27 Nasal Cannula* 2 28 Total Intake and Output 03/18/25 03/18/25 03/19/25 15:00 23:00 07:00 Intake Total 100 ml 120 ml Balance 100 ml 120 ml medications Current Medications Medications Dose Ordered Sig/Asha Route Start Time Stop Time Status Last Admin Dose Admin Acetaminophen/ Hydrocodone Bitart 1 tab Q4HP PRN PO 03/18/25 10:15 Ondansetron HCl 4 mg Q4HP PRN IV 03/18/25 10:15 03/19/25 18:11 4 MG Docusate Sodium 100 mg BIDPRN PRN PO 03/18/25 10:15 Acetaminophen 650 mg Q6HP PRN PO 03/18/25 10:15 Morphine Sulfate 2 mg Q4HPRN PRN IV 03/18/25 10:15 Hold Nitroglycerin 0.4 mg Q5MINP PRN SL 03/18/25 10:30 Morphine Sulfate 2 mg Q30M PRN IV 03/18/25 10:30 Hydromorphone HCl 0.25 mg Q6HPRN PRN IV 03/18/25 17:15 03/19/25 18:10 0.25 MG laboratory and microbiology Laboratory Tests 03/17/25 15:43 Test 03/17/25 15:43 Range/Units Serum Glucose 103 74-106 mg/dL Microbiology Date/Time Source Procedure Growth Status 03/18/25 18:45 Nose MRSA Screen - Final Methicillin Resistant S.aureus Complete Labs and/or images reviewed: Labs reviewed by me Problem List/Assessment/Plan Problem List/Assessment/Plan chest pain rule out ACS Chronic systolic heart failure due to ischemic cardiomyopathy Coronary artery disease, status post CABG Chronic kidney disease, stage 3a (GFR 45) Chest pain, non-ischemic in presentation Status post Biotronik ICD implantation History of cerebrovascular accident Depression and anxiety Urinary tract infection Hyperlipidemia Hypertension COPD, stable Acute kidney injury Urinary tract infection Plan discussed with: Patient BROWNLEANNA DO Mar 19, 2025 21:26
--- NOTE | 2025-03-19 21:26 | DVHPN2 ---
Progress Note Date Seen: Mar 19, 2025 Medical Necessity Reason Pt with a Central, PICC or Fol: No Subjective Review of Systems: HEENT:Normal, CVS:Normal, RESPIRATORY:Normal Objective vital signs Vital Sign Date Time Temp Pulse Resp B/P (MAP) Pulse Ox O2 Delivery O2 Flow Rate FiO2 03/19/25 18:40 61 18 128/63 03/19/25 17:00 98.3 96 98.3 03/19/25 08:27 Nasal Cannula* 2 28 Total Intake and Output 03/18/25 03/18/25 03/19/25 15:00 23:00 07:00 Intake Total 100 ml 120 ml Balance 100 ml 120 ml medications Current Medications Medications Dose Ordered Sig/Asha Route Start Time Stop Time Status Last Admin Dose Admin Acetaminophen/ Hydrocodone Bitart 1 tab Q4HP PRN PO 03/18/25 10:15 Ondansetron HCl 4 mg Q4HP PRN IV 03/18/25 10:15 03/19/25 18:11 4 MG Docusate Sodium 100 mg BIDPRN PRN PO 03/18/25 10:15 Acetaminophen 650 mg Q6HP PRN PO 03/18/25 10:15 Morphine Sulfate 2 mg Q4HPRN PRN IV 03/18/25 10:15 Hold Nitroglycerin 0.4 mg Q5MINP PRN SL 03/18/25 10:30 Morphine Sulfate 2 mg Q30M PRN IV 03/18/25 10:30 Hydromorphone HCl 0.25 mg Q6HPRN PRN IV 03/18/25 17:15 03/19/25 18:10 0.25 MG Examination: GENERAL:Normal, HEENT:Normal, NECK:Normal, LUNGS:Normal laboratory and microbiology Laboratory Tests 03/17/25 15:43 Test 03/17/25 15:43 Range/Units Serum Glucose 103 74-106 mg/dL Microbiology Date/Time Source Procedure Growth Status 03/18/25 18:45 Nose MRSA Screen - Final Methicillin Resistant S.aureus Complete Labs and/or images reviewed: Labs reviewed by me, Image(s) reviewed by me Problem List/Assessment/Plan Problem List/Assessment/Plan chest pain rule out ACS Chronic systolic heart failure due to ischemic cardiomyopathy Coronary artery disease, status post CABG Chronic kidney disease, stage 3a (GFR 45) Chest pain, non-ischemic in presentation Status post Biotronik ICD implantation History of cerebrovascular accident Depression and anxiety Urinary tract infection Hyperlipidemia Hypertension COPD, stable Acute kidney injury Urinary tract infection pending evaluation by cardiology Plan discussed with: Patient LEANNA BROWN DO Mar 19, 2025 21:26
[2025-03-20] VITALS (8 sets, daily range): BP systolic 121–151; BP diastolic 70–80; PULSE 63–81; RESP 15–18; TEMP 97.2–98.5; O2SAT 94–97
--- NOTE | 2025-03-20 12:02 | DVHPN2 ---
Progress Note Date Seen: Mar 20, 2025 Medical Necessity Reason Pt with a Central, PICC or Fol: No Subjective Review of Systems: HEENT:Normal, CVS:Normal, RESPIRATORY:Normal, GI:Normal, :Normal Objective vital signs Vital Sign Date Time Temp Pulse Resp B/P (MAP) Pulse Ox O2 Delivery O2 Flow Rate FiO2 03/20/25 08:40 98.1 68 16 132/76 (94) 94 98.1 03/20/25 08:00 Nasal Cannula* 2 28 Total Intake and Output 03/19/25 03/19/25 03/20/25 15:00 23:00 07:00 Intake Total 240 ml 236 ml 100 ml Balance 240 ml 236 ml 100 ml medications Current Medications Medications Dose Ordered Sig/Asha Route Start Time Stop Time Status Last Admin Dose Admin Acetaminophen/ Hydrocodone Bitart 1 tab Q4HP PRN PO 03/18/25 10:15 Ondansetron HCl 4 mg Q4HP PRN IV 03/18/25 10:15 03/20/25 06:10 4 MG Docusate Sodium 100 mg BIDPRN PRN PO 03/18/25 10:15 Acetaminophen 650 mg Q6HP PRN PO 03/18/25 10:15 Morphine Sulfate 2 mg Q4HPRN PRN IV 03/18/25 10:15 Hold Nitroglycerin 0.4 mg Q5MINP PRN SL 03/18/25 10:30 Morphine Sulfate 2 mg Q30M PRN IV 03/18/25 10:30 Hydromorphone HCl 0.5 mg Q4HP PRN IV 03/20/25 12:00 UNV Oxycodone HCl 20 mg Q12HR PO 03/20/25 22:00 UNV Clopidogrel Bisulfate 75 mg DAILY PO 03/21/25 10:00 UNV Metoprolol Succinate 25 mg DAILY PO 03/21/25 10:00 UNV Ceftriaxone Sodium 50 ml @ 100 mls/hr DAILY@09 IV 03/21/25 09:00 UNV Ranolazine 500 mg BID PO 03/20/25 22:00 UNV Examination: GENERAL:Normal, HEENT:Normal, NECK:Normal laboratory and microbiology Laboratory Tests 03/17/25 15:43 Test 03/17/25 15:43 Range/Units Serum Glucose 103 74-106 mg/dL Microbiology Date/Time Source Procedure Growth Status 03/18/25 18:45 Nose MRSA Screen - Final Methicillin Resistant S.aureus Complete Labs and/or images reviewed: Labs reviewed by me, Image(s) reviewed by me Problem List/Assessment/Plan Problem List/Assessment/Plan chest pain rule out ACS Chronic systolic heart failure due to ischemic cardiomyopathy Coronary artery disease, status post CABG Chronic kidney disease, stage 3a (GFR 45) Chest pain, non-ischemic in presentation Status post Biotronik ICD implantation History of cerebrovascular accident Depression and anxiety Urinary tract infection Hyperlipidemia Hypertension COPD, stable Acute kidney injury Urinary tract infection pending evaluation by cardiology Plan discussed with: Patient My Orders My Orders Orders - LEANNA BROWN DO Procedure Category Date Status Time *Dr. Georgette Bowens CONS 03/20/25 Transmitted 11:46 Hydromorphone PHA 03/20/25 Logged Injection (Dilaudid 12:00 Oxycodone Er Tablet PHA 03/20/25 Logged (Oxycontin Er Tablet 22:00 Clopidogrel Bisulfate PHA 03/21/25 Logged (Plavix) 10:00 Metoprolol Xl PHA 03/21/25 Logged Succinate (Toprol Xl) 10:00 Ceftriaxone 1gm/50ml PHA 03/21/25 Logged (Rocephin) 09:00 DNR AME 03/20/25 In Process 11:56 Ranolazine (Ranexa Er) PHA 03/20/25 Logged 22:00 Dietary Evaluation Review Comments: 1) Continue cardiac diet 2) Encourage optimal PO intake 3) Follow-up with cardiology and pulmonology 4) Continue to monitor I&O, labs, and skin integrity Expected Outcomes/Goals: 1) appetite and labs to improve 2) f/u in 3-5 days LEANNA BROWN DO Mar 20, 2025 12:02
[2025-03-20] MEDS: HYDROmorphone HCL 2 MG/ML VL/or syr IV PRN (12:35)
[2025-03-20] MEDS: CLOPIDOGREL BISULFATE 75 MG TAB PO SCH (14:22)
[2025-03-20] MEDS: RANOLAZINE ER 500 MG TAB PO SCH (14:22)
[2025-03-20] MEDS: METOPROLOL SUCCINATE XL 50 MG TAB PO SCH (14:23)
--- NOTE | 2025-03-20 17:04 | DVHINCON2 ---
Date of service: Mar 20, 2025 Referring Physician Iftikhar Zuniga MD Reason for Consultation Acute kidney injury History of Present Illness Niya Scott is a 79-year-old F who presented to the hospital with complaint of chest pain x 2 days associated with lightheadedness, nausea and shortness of breath. 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 While in ED, EKG showed paced rhythm, 65 bpm. Chest x-ray reported no radiographic evidence of acute cardiopulmonary abnormality. Labs are remarkable for Creatinine 1.21 with BUN of 25. eGFR 45. K is wnl. She currently reports feeling better. Denies any current chest pain or shortness of breath. Pending p acemaker interrogation. Patient complains of left leg pain,s/p recent surgery. 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 Hydrocodone (Verified Allergy, Unknown, rash, 05/18/23) tylenol is okay per patient Home Meds Active Scripts Ciprofloxacin Hcl (Cipro) 250 Mg Tab, 250 MG PO BID for 5 Days, #10 TAB Prov:YENNY FRAIRE MD 02/09/25 Oxycodone W/ Acetaminophen (Percocet 5/325MG) 1 Tab Tb, 1 TAB PO QID PRN, #20 TAB Prov:YENNY FRAIRE MD 02/09/25 Levofloxacin Hemihydrate (LEVOFLOXACIN) 750 Mg Tab, 750 MG PO DAILY for 5 Days, #5 TAB Prov:HPILL LEAL RESDIENT 01/17/25 Oxycodone W/ Acetaminophen (Percocet 5/325MG) 1 Tab Tb, 1 TAB PO QID, #30 TAB Prov:JANE VEGA MD 09/29/24 Phenazopyridine HCl (Eq Urinary Pain Relief Ma) 99.5 Mg Tab, 99.5 MG PO TID for 10 Days, #30 TAB Prov:PHILL LEAL RESDIENT 09/23/24 Metoprolol Succinate (Metoprolol Succinate Er) 25 Mg Tab, 1 TAB PO DAILY for 30 Days, #30 TAB 5 Refills Prov:AXEL CARABALLO RESIDENT 09/06/24 Spironolactone (Aldactone) 25 Mg Tab, 25 MG PO DAILY for 30 Days, #30 TAB Prov:BHARAT MICHELLE RESIDENT 07/22/24 Oxybutynin Chloride (Oxybutynin Chloride) 5 Mg Tab, 5 MG PO Q8HR for 30 Days, #90 TAB Prov:BHARAT MICHELLE RESIDENT 07/22/24 Atorvastatin Calcium (ATORVASTATIN CALCIUM) 20 Mg Tab, 40 MG PO HS for 30 Days, #60 TAB Prov:BHARAT MICHELLE RESIDENT 07/22/24 Duloxetine Hydrochloride (Duloxetine Hydrochloride) 30 Mg Cap, 30 MG PO DAILY for 30 Days, #30 CAP Prov:WINSOME GOMEZ MD 04/29/24 Clopidogrel Bisulfate (CLOPIDOGREL) 75 Mg Tab, 75 MG PO DAILY for 30 Days, #30 TAB 5 Refills Prov:YENNY FRAIRE MD 11/26/23 Ranolazine (Ranolazine ER) 500 Mg Tab, 500 MG PO BID for 30 Days, #60 TAB 2 Refills Prov:RUSSBLAISE LovellU [facility] 09/16/23 Reported Medications Polyethylene Glycol 3350 (Miralax) 17 Gm Pow, 17 GM PO DAILY PRN for FOR CONSTIPATION for 30 Days, #30 01/28/24 Ipratropium-Albuterol (Ipratropium [place]/Albut) 1 Yuli Yuli, 1 VIAL NEB Q6HPRN PRN for SHORTNESS OF BREATH for 13 Days, #180 09/05/23 Fluticasone-Salmeterol (Fluticasone Propionate/SA 250-50 Mcg/Dose) 1 Aer Aer, 1 PUFF INH BID for 30 Days, #60 09/05/23 Albuterol Sulfate (Albuterol Sulfate Hfa) 108 Mcg/Act Aer, 2 PUFF INH Q4HPRN PRN for dyspnea for 17 Days, #18 09/05/23 Cholecalciferol (VITAMIN D3) 2,000 Unit Tab, 1 TAB PO BID for 30 Days, #60 08/28/23 Multiple Vitamin (Tab-A-Radha) Tab, 1 TAB PO DAILY for 30 Days, #30 08/28/23 Aspirin (Aspir-Low) 81 Mg Tab, 1 TAB PO DAILY for 30 Days, #30 08/28/23 Ascorbic Acid (VITAMIN C TABLET) 500 Mg Tb, 1 TAB PO BID for 30 Days, #60 05/18/23 Pantoprazole Sodium Sesquihydr (Pantoprazole Sodium) 40 Mg Tab, 1 TAB PO DAILY 05/18/23 Current Medications Current Medications Medications (Trade) Dose Ordered Sig/Asha Route PRN Reason Start Time Stop Time Status Last Admin Hydromorphone HCl (Dilaudid Injection) 0.5 mg Q4HP PRN IV SEVERE PAIN (7-10 PAIN SCALE) 03/20/25 12:00 03/20/25 16:44 Oxycodone HCl (OxyCONTIN ER Tablet) 20 mg Q12HR PO 03/20/25 22:00 03/20/25 13:52 DC Clopidogrel Bisulfate (Plavix) 75 mg DAILY PO 03/20/25 12:49 03/20/25 14:22 Metoprolol Succinate (Toprol Xl) 25 mg DAILY PO 03/20/25 12:49 03/20/25 14:23 Ceftriaxone Sodium 50 ml @ 100 mls/hr DAILY@09 IV 03/21/25 09:00 03/20/25 13:52 DC Ranolazine (Ranexa ER) 500 mg BID PO 03/20/25 12:50 03/20/25 14:22 Oxycodone HCl 20 mg Q12HP PO 03/20/25 22:00 Levofloxacin/ Dextrose 100 ml @ 100 mls/hr DAILY IV 03/21/25 20:00 03/20/25 16:38 DC Levofloxacin/ Dextrose 100 ml @ 100 mls/hr DAILY IV 03/20/25 20:00 Mupirocin (Bactroban 2% Ointment) 1 applic BID EACHNOSTRI 03/20/25 22:00 03/25/25 21:59 Family History: Arthritis Cardiovascular disease G8 MOTHER, Onset:Unknown Cerebrovascular accident (CVA) G8 FATHER Coronary artery disease G8 MOTHER, Onset:Unknown FH: diabetes mellitus G8 MOTHER, Onset:Unknown FH: heart disease G8 MOTHER, Onset:Unknown FH: hypertension G8 MOTHER, Onset:Unknown FH: lupus 19 CHILD FH: myocardial infarction G8 MOTHER, Onset:Unknown Family history: Cardiovascular disease G8 MOTHER, Onset:Unknown G8 FATHER, Onset:Unknown Glaucoma G8 MOTHER, Onset:Unknown Review of Systems Constitutional: denies: chills, diaphoresis, fatigue, fever, malaise, sweats, weakness, others EENTM: denies: blurred vision, double vision, ear bleeding, ear discharge, ear drainage, ear pain, ear ringing, eye pain, eye redness, hearing loss, mouth pain, mouth swelling, nasal discharge, Respiratory: reports: shortness of breath; denies: cough, hemoptysis, orthopnea, SOB at rest, SOB with excertion, stridor, wheezing, others Cardiovascular: reports: chest pain; denies: dizzy spells, diaphoresis, Dyspnea on exertion, edema, irregular heart beat, left arm pain, lightheadedness, palpitations, PND, syncope, others Gastrointestinal: denies: abdomen distended, abdominal pain, blood streaked bowels, constipated, diarrhea, dysphagia, difficulty swallowing Neurological: denies: dizziness, fainting, headache, left sided numbness, left sided weakness, numbness, paresthesia, pre-existing deficit, right sided numbness, right sided weakness, seizure, speech problems, tingling, tremors, weakness, others Musculoskeletal: Left leg pain. denies: back pain, gout, joint pain, joint swelling, muscle pain, muscle stiffness, neck pain, others Psychiatric: denies: anxiety, bipolar disorder, depression, hopeless, panic disorder, schizophrenia, sleepless, suicidal, others Other systems reviewed and negative unless otherwise noted in HPI. H&P Exam Vital Signs/I&O Vital Sign Date Time Temp Pulse Resp B/P (MAP) Pulse Ox O2 Delivery O2 Flow Rate FiO2 03/20/25 16:55 98.0 70 16 126/70 (88) 96 98.0 03/20/25 08:00 Nasal Cannula* 2 28 Intake and Output 03/19/25 03/20/25 19:00 07:00 Intake Total 476 ml 100 ml Balance 476 ml 100 ml Intake Oral 476 ml 100 ml # Voids 5 4 # Bowel Movements 1 2 Physical Exam Vitals and nursing notes reviewed. General Appearance: In no acute distress, Obese HEENT: Normal ENT Inspection, Pharynx Normal Neck: Full Range of Motion, Non-Tender, Normal, Normal Inspection Respiratory: Lungs Clear, No Accessory Muscle Use, No Respiratory Distress, Normal Breath Sounds Cardiovascular: No Edema, No JVD, No Murmur, No Gallop, Normal Peripheral Pulses, Regular Rate/Rhythm, Other (Pacemaker to the chest) Gastrointestinal: No Organomegaly, Non Tender, No Pulsatile Mass, Normal Bowel Sounds, Soft Extremities: No calf tenderness, Normal capillary refill, Normal inspection, Normal range of motion, Non-tender, No pedal edema Musculoskeletal : Normal Neurologic: Alert, cardiac rehabilitation specialist II-XII nml as Tested, No Motor Deficits, Normal Affect, Normal Mood, No Sensory Deficits Skin: Dry, Normal Color, Warm Labs/Diagnostic Data Labs/Diagnostic Data Laboratory Tests Test 03/18/25 12:09 03/17/25 19:41 03/17/25 17:38 03/17/25 15:43 Range/Units Urine Color Yellow Yellow Urine Clarity Clear Clear Urine pH 5.5 5.0-9.0 Urine Specific [place] 1.023 1.001-1.035 Urine Protein Negative Negative Urine Ketones Negative Negative Urine Blood Negative Negative /uL Urine Nitrite Negative Negative Urine Bilirubin Negative Negative Urine Urobilinogen Normal Negative mg/dL Urine Leukocyte Esterase 3+ Negative /uL Urine RBC 5 0 - 4 /hpf Urine Microscopic WBC 29 H 0-5 /HPF Urine Squamous Epithelial Cells Few <5 /hpf Urine Bacteria Few H None Seen /hpf Urine Glucose Normal Normal mg/dL Troponin I High Sensitivity 24 23 22 </=34 ng/L White Blood Count 7.5 4.4-10.8 10^3/uL Red Blood Count 4.30 4.0-5.20 10^6/uL Hemoglobin 13.0 12.2-16.2 g/dL Hematocrit 38.9 36.0-46.0 % Mean Corpuscular Volume 90.6 80.0-100.0 fL Mean Corpuscular Hemoglobin 30.2 28.0-32.0 pg Mean Corpuscular Hemoglobin Concent 33.3 32.0-36.0 g/dL Red Cell Distribution Width 16.6 H 11.8-14.3 % Platelet Count 251 140-450 10^3/uL Mean Platelet Volume 8.3 6.9-10.8 fL Neutrophils (%) (Auto) 57.4 37.0-80.0 % Lymphocytes (%) (Auto) 27.2 10.0-50.0 % Monocytes (%) (Auto) 12.3 H 0.0-12.0 % Eosinophils (%) (Auto) 2.6 0.0-7.0 % Basophils (%) (Auto) 0.5 0.0-2.0 % Neutrophils # (Auto) 4.3 1.6-8.6 10 ^3/uL Lymphocytes # (Auto) 2.0 0.4-5.4 10 ^3/uL Monocytes # (Auto) 0.9 0-1.3 10 ^3/uL Eosinophils # (Auto) 0.2 0-0.8 10 ^3/uL Basophils # (Auto) 0 0-0.2 10 ^3/uL Nucleated Red Blood Cells 0.1 % Sodium Level 144 136-145 mmol/L Potassium Level 4.5 3.5-5.1 mmol/L Chloride Level 110 H 98-107 mmol/L Carbon Dioxide Level 23 20-31 mmol/L Anion Gap 11 5-15 Blood Urea Nitrogen 25 H 9-23 mg/dL Creatinine 1.21 H 0.550-1.02 mg/dL Glomerular Filtration Rate Calc 45 >90 mL/min BUN/Creatinine Ratio 20.7 H 10.0-20.0 Serum Glucose 103 74-106 mg/dL Calcium Level 9.3 8.7-10.4 mg/dL B-Type Natriuretic Peptide 564.93 0-100 pg/mL Microbiology Date/Time Source Procedure Growth Status 03/18/25 18:45 Nose MRSA Screen - Final Methicillin Resistant S.aureus Complete Assessment Chest pain Acute kidney injury Urinary tract infection Code Status: DNR Plan/Recommendation Agreement with your ongoing assessment and plan of care. Cardiology consult. Pacemaker interrogation pending. Surgery consult. Daily lab monitoring to include renal function and electrolytes. Electrolyte replacement prn. IV Levofloxacin. MRSA nares positive. Continued on Mupirocin. Pain management prn. Additional plan as per the hospital course. Plan discussed with: Other (RN) MARIBETH GUTIERRES DO Mar 20, 2025 17:04
[2025-03-20] MEDS: MUPIROCIN 2% OINT 15gm or 22gm FOR MRSA NARES EACHNOSTRI SCH (20:23)
--- NOTE | 2025-03-20 20:31 | DVHINCON2 ---
Date of service: Mar 20, 2025 History of Present Illness HPI The patient is an 79-year-old female who initially presented to the emergency department on 03/19/2025 with complaints of chest pain that began two days prior to presentation. She describes the pain as a dull substernal pressure, non- radiating, and associated with episodes of lightheadedness, nausea, and shortness of breath. The patient also reported that, although uncertain, she felt as if her pacemaker may have fired. At present, she reports mild improvement in her chest discomfort but continues to experience exertional shortness of breath. She denies palpitations, dizziness, orthopnea, or paroxysmal nocturnal dyspnea. Initial electrocardiogram demonstrated AV-paced rhythm at 69 bpm with no acute ST or T wave changes. Laboratory results revealed hemoglobin 13.0, high- sensitivity troponin 22 ? 23 ? 24, potassium 4.5, creatinine 1.21 with GFR 45. Urinalysis was positive for leukocytes and WBCs. BNP was 564. Chest X-ray demonstrated no evidence of acute cardiopulmonary abnormality. Past Medical History: Hypertension, hyperlipidemia, coronary artery disease, status post CABG (2010), systolic heart failure due to ischemic cardiomyopathy, gout, kidney stones status post ESWL, frequent urinary tract infections, history of cerebrovascular accident, diverticulosis, COPD, status post COVID-19 infection, depression, anxiety, GERD, history of appendectomy, hysterectomy, and tonsillectomy. The patient also has a Biotronik ICD in place and is chronically wheelchair-bound. She was previously on hospice for advanced heart failure. The patient is allergic to codeine, is a former smoker, and is currently DNR. Cardiac Testing History: Cardiac Catheterization (August 26, [address] [facility]): Revealed triple-vessel [place] coronary artery disease with chronic total occlusion (MEDICAL PRACTICE ADMINISTRATOR) of the obtuse marginal and RCA. LAD showed a 75% lesion, status post drug-eluting stent deployment. Patent SVG to obtuse marginal and patent SVG to RCA were noted. Cardiac Catheterization (September 2020): Ejection fraction 20%. MEDICAL PRACTICE ADMINISTRATOR of SVG to diagonal. Patent TAN, patent SVG to OM, patent SVG to PDA, and MEDICAL PRACTICE ADMINISTRATOR of RCA. Echocardiogram (11/30/2024): Dilated left ventricle was observed. Diffuse hypokinesis of left ventricle with regional variation was seen. The LVEF was around 10%. Filling pressure of left ventricle was increased. Right ventricle was not well-visualized. Systolic function of right ventricle was reduced. Both atria were normal sized. Pacing wire in the right sided chambers was seen. Aortic valve was not well visualized. There was no aortic insufficiency/emesis. There was mild mitral regurgitation. There was trace tricuspid regurgitation. Pulmonary valve was not well visualized. As there was no acute tricuspid regurgitation jet, right ventricular systolic pressure could not be estimated. There was no pericardial effusion. Echocardiogram (September 04, 2024): Dilated left ventricle with LVEF 10%. Increased LV end-diastolic pressure. Pacing wire seen in right-sided chambers. Mild mitral regurgitation. No measurab le TR jet to estimate RVSP. Echocardiogram (August 25, [address] [facility]): LVEF approximately 20%. Echocardiogram (May 26, 2024): LVEF 1520%. Biatrial enlargement. Pacing wire visualized in right-sided chambers. Echocardiogram (August 28, 2023): Dilated left ventricle with significantly reduced systolic function (LVEF 20%). Elevated LVEDP. Four-chamber dilation noted. Pacing wire in right-sided chambers. Mild to moderate mitral regurgitation. Echocardiogram (March 25, 2023): Four-chamber dilation. LVEF 2025%. Mild to moderate mitral regurgitation. Mild tricuspid regurgitation. Trace pulmonary insufficiency. RVSP 35 mmHg. Echocardiogram (January 03, 2023): LVEF 2025%. Mild left ventricular enlargement. Echocardiogram (March 21, 2022): LVEF approximately 20%. Mild mitral and tricuspid regurgitation. Echocardiogram (February 17, 2021): Dilated left ventricle with LVEF 25%. Severe diffuse hypokinesis. Increased LVEDP. Dilated left and right atria. Mild to moderate MR. Mild TR. Echocardiogram (December 30, 2020): LVEF <20%. Dilated left atrium. Echocardiogram (August 2020): LVEF <25%. Right and left atrial enlargement. Moderate mitral regurgitation. Home Meds Active Scripts Ciprofloxacin Hcl (Cipro) 250 Mg Tab, 250 MG PO BID for 5 Days, #10 TAB Prov:YENNY FRAIRE MD 02/09/25 Oxycodone W/ Acetaminophen (Percocet 5/325MG) 1 Tab Tb, 1 TAB PO QID PRN, #20 TAB Prov:YENNY FRAIRE MD 02/09/25 Levofloxacin Hemihydrate (LEVOFLOXACIN) 750 Mg Tab, 750 MG PO DAILY for 5 Days, #5 TAB Prov:PHILL LEAL RESDIENT 01/17/25 Oxycodone W/ Acetaminophen (Percocet 5/325MG) 1 Tab Tb, 1 TAB PO QID, #30 TAB Prov:JANE VEGA MD 09/29/24 Phenazopyridine HCl (Eq Urinary Pain Relief Ma) 99.5 Mg Tab, 99.5 MG PO TID for 10 Days, #30 TAB Prov:PHILL LEAL RESDIENT 09/23/24 Metoprolol Succinate (Metoprolol Succinate Er) 25 Mg Tab, 1 TAB PO DAILY for 30 Days, #30 TAB 5 Refills Prov:AXEL CARABALLO RESIDENT 09/06/24 Spironolactone (Aldactone) 25 Mg Tab, 25 MG PO DAILY for 30 Days, #30 TAB Prov:BHARAT MICHELLE RESIDENT 07/22/24 Oxybutynin Chloride (Oxybutynin Chloride) 5 Mg Tab, 5 MG PO Q8HR for 30 Days, #90 TAB Prov:BHARAT MICHELLE RESIDENT 07/22/24 Atorvastatin Calcium (ATORVASTATIN CALCIUM) 20 Mg Tab, 40 MG PO HS for 30 Days, #60 TAB Prov:BHARAT MICHELLE RESIDENT 07/22/24 Duloxetine Hydrochloride (Duloxetine Hydrochloride) 30 Mg Cap, 30 MG PO DAILY for 30 Days, #30 CAP Prov:WINSOME GOMEZ MD 04/29/24 Clopidogrel Bisulfate (CLOPIDOGREL) 75 Mg Tab, 75 MG PO DAILY for 30 Days, #30 TAB 5 Refills Prov:YENNY FRAIRE MD 11/26/23 Ranolazine (Ranolazine ER) 500 Mg Tab, 500 MG PO BID for 30 Days, #60 TAB 2 Refills Prov:MAGAN RUSS RESIDENT 09/16/23 Reported Medications Polyethylene Glycol 3350 (Miralax) 17 Gm Pow, 17 GM PO DAILY PRN for FOR CONSTIPATION for 30 Days, #30 01/28/24 Ipratropium-Albuterol (Ipratropium [place]/Albut) 1 Yuli Yuli, 1 VIAL NEB Q6HPRN PRN for SHORTNESS OF BREATH for 13 Days, #180 09/05/23 Fluticasone-Salmeterol (Fluticasone Propionate/SA 250-50 Mcg/Dose) 1 Aer Aer, 1 PUFF INH BID for 30 Days, #60 09/05/23 Albuterol Sulfate (Albuterol Sulfate Hfa) 108 Mcg/Act Aer, 2 PUFF INH Q4HPRN PRN for dyspnea for 17 Days, #18 09/05/23 Cholecalciferol (VITAMIN D3) 2,000 Unit Tab, 1 TAB PO BID for 30 Days, #60 08/28/23 Multiple Vitamin (Tab-A-Radha) Tab, 1 TAB PO DAILY for 30 Days, #30 08/28/23 Aspirin (Aspir-Low) 81 Mg Tab, 1 TAB PO DAILY for 30 Days, #30 08/28/23 Ascorbic Acid (VITAMIN C TABLET) 500 Mg Tb, 1 TAB PO BID for 30 Days, #60 05/18/23 Pantoprazole Sodium Sesquihydr (Pantoprazole Sodium) 40 Mg Tab, 1 TAB PO DAILY 05/18/23 Past Medical History Patient Family History: Arthritis Cardiovascular disease G8 MOTHER, Onset:Unknown Cerebrovascular accident (CVA) G8 FATHER Coronary artery disease G8 MOTHER, Onset:Unknown FH: diabetes mellitus G8 MOTHER, Onset:Unknown FH: heart disease G8 MOTHER, Onset:Unknown FH: hypertension G8 MOTHER, Onset:Unknown FH: lupus 19 CHILD FH: myocardial infarction G8 MOTHER, Onset:Unknown Family history: Cardiovascular disease G8 MOTHER, Onset:Unknown G8 FATHER, Onset:Unknown Glaucoma G8 MOTHER, Onset:Unknown Review of Systems Comments A 14-point review of systems is negative unless otherwise noted in HPI H&P Exam Vital Signs Vital Signs Date Time Temp Pulse Resp B/P (MAP) Pulse Ox O2 Delivery O2 Flow Rate FiO2 03/20/25 17:30 74 17 122/67 03/20/25 16:55 98.0 96 98.0 03/20/25 08:00 Nasal Cannula* 2 28 Comments Heart: S1 and S2 present. The patient is in an AV-paced rhythm. Lungs: Clear to auscultation. Abdomen: Benign. Extremities: Distal pulses palpable, 2+. No evidence for peripheral edema Labs/Xrays Labs Test 03/18/25 12:09 03/17/25 19:41 03/17/25 15:43 Range/Units Urine Color Yellow Yellow Urine Clarity Clear Clear Urine pH 5.5 5.0-9.0 Urine Specific [place] 1.023 1.001-1.035 Urine Protein Negative Negative Urine Ketones Negative Negative Urine Blood Negative Negative /uL Urine Nitrite Negative Negative Urine Bilirubin Negative Negative Urine Urobilinogen Normal Negative mg/dL Urine Leukocyte Esterase 3+ Negative /uL Urine RBC 5 0 - 4 /hpf Urine Microscopic WBC 29 H 0-5 /HPF Urine Squamous Epithelial Cells Few <5 /hpf Urine Bacteria Few H None Seen /hpf Urine Glucose Normal Normal mg/dL Troponin I High Sensitivity 24 </=34 ng/L White Blood Count 7.5 4.4-10.8 10^3/uL Red Blood Count 4.30 4.0-5.20 10^6/uL Hemoglobin 13.0 12.2-16.2 g/dL Hematocrit 38.9 36.0-46.0 % Mean Corpuscular Volume 90.6 80.0-100.0 fL Mean Corpuscular Hemoglobin 30.2 28.0-32.0 pg Mean Corpuscular Hemoglobin Concent 33.3 32.0-36.0 g/dL Red Cell Distribution Width 16.6 H 11.8-14.3 % Platelet Count 251 140-450 10^3/uL Mean Platelet Volume 8.3 6.9-10.8 fL Neutrophils (%) (Auto) 57.4 37.0-80.0 % Lymphocytes (%) (Auto) 27.2 10.0-50.0 % Monocytes (%) (Auto) 12.3 H 0.0-12.0 % Eosinophils (%) (Auto) 2.6 0.0-7.0 % Basophils (%) (Auto) 0.5 0.0-2.0 % Neutrophils # (Auto) 4.3 1.6-8.6 10 ^3/uL Lymphocytes # (Auto) 2.0 0.4-5.4 10 ^3/uL Monocytes # (Auto) 0.9 0-1.3 10 ^3/uL Eosinophils # (Auto) 0.2 0-0.8 10 ^3/uL Basophils # (Auto) 0 0-0.2 10 ^3/uL Nucleated Red Blood Cells 0.1 % Sodium Level 144 136-145 mmol/L Potassium Level 4.5 3.5-5.1 mmol/L Chloride Level 110 H 98-107 mmol/L Carbon Dioxide Level 23 20-31 mmol/L Anion Gap 11 5-15 Blood Urea Nitrogen 25 H 9-23 mg/dL Creatinine 1.21 H 0.550-1.02 mg/dL Glomerular Filtration Rate Calc 45 >90 mL/min BUN/Creatinine Ratio 20.7 H 10.0-20.0 Serum Glucose 103 74-106 mg/dL Calcium Level 9.3 8.7-10.4 mg/dL B-Type Natriuretic Peptide 564.93 0-100 pg/mL Microbiology Date/Time Source Procedure Growth Status 03/18/25 18:45 Nose MRSA Screen - Final Methicillin Resistant S.aureus Complete Assessment/Plan Plan Recognizing the patients presentation, electrocardiogram findings, and laboratory results, acute coronary syndrome is not considered at this time. As ACS is not suspected, no inpatient ischemic workup is warranted at this time. However, given the patients report of possible device activity and her complex cardiac history, recommend device interrogation to evaluate for any recent arrhythmias, episodes of ventricular tachycardia or fibrillation, or inappropriate shocks that may correlate with her symptoms. Continue to monitor on telemetry for rhythm abnormalities or pacing irregularities. Continue guideline-directed medical therapy for chronic systolic heart failure and ischemic cardiomyopathy. Assessment: Chronic systolic heart failure due to ischemic cardiomyopathy Coronary artery disease, status post CABG Chronic kidney disease, stage 3a (GFR 45) Chest pain, non-ischemic in presentation Status post Biotronik ICD implantation History of cerebrovascular accident Depression and anxiety Urinary tract infection Hyperlipidemia Hypertension COPD, stable Cardiology Recommendations: Request for device interrogation Proceed with close rate and rhythm surveillance Proceed with close hemodynamic surveillance Proceed with optimized blood pressure control Transfuse to sustain HGB levels above 7.0 Sustain Magnesium level greater than 2.0 Sustain Potassium level greater than 4.0 Follow up renal function and electrolytes Management in Telemetry Will proceed to follow from a cardiac perspective Further recommendations per clinical progression All available labs, EKGs, and images were personally reviewed Patient's status, findings, and plan of care was discussed and reviewed with supervising physician Dr. Claudio, who is in agreement with current plan of care. Plan of care discussed with and agreed upon by patient/family/Primary RN. Prognosis: Guarded Thank you for allowing me to participate in the care of this patient. Further recommendations will depend on clinical progression, hospitalist, and other consultants. Will continue to follow with Primary. If you have any questions, please do not hesitate to contact me. A total of 75 minutes was spent reviewing the patient record, examining the patient, making a diagnostic and therapeutic plan, discussing this plan with medical personnel, following up on diagnostic studies and following the patient for clinical stability excluding any and all procedures. At least 50% of this time was spent in direct, [id number] contact. Plan discussed with: Patient, Other (Primary RN) REJI VILLEDA NP Mar 20, 2025 20:31
[2025-03-21] VITALS (8 sets, daily range): BP systolic 122–137; BP diastolic 63–82; PULSE 64–80; RESP 13–18; TEMP 97.5–98.9; O2SAT 96–98
--- NOTE | 2025-03-21 09:52 | DVHPN2 ---
Progress Note - Dictate Date Seen: Mar 21, 2025 Medical Necessity Reason Pt with a Central, PICC or Fol: No Subjective Patient seen and examined at the bedside within Telemetry. Vital signs stable. Chart reviewed. Patient's medications, allergies, past medical, surgical, social and family histories were obtained and reviewed as appropriate. vital signs Vital Sign Date Time Temp Pulse Resp B/P (MAP) Pulse Ox O2 Delivery O2 Flow Rate FiO2 03/21/25 09:00 98.7 70 18 129/71 (90) 98 98.7 03/20/25 20:00 Nasal Cannula* 2 28 Total Intake and Output 03/20/25 03/20/25 03/21/25 15:00 23:00 07:00 Intake Total 240 ml 700 ml 118 ml Balance 240 ml 700 ml 118 ml medications Current Medications Medications Dose Ordered Sig/Asha Route Start Time Stop Time Status Last Admin Dose Admin Acetaminophen/ Hydrocodone Bitart 1 tab Q4HP PRN PO 03/18/25 10:15 Ondansetron HCl 4 mg Q4HP PRN IV 03/18/25 10:15 03/21/25 06:08 4 MG Docusate Sodium 100 mg BIDPRN PRN PO 03/18/25 10:15 Acetaminophen 650 mg Q6HP PRN PO 03/18/25 10:15 Morphine Sulfate 2 mg Q4HPRN PRN IV 03/18/25 10:15 Hold Nitroglycerin 0.4 mg Q5MINP PRN SL 03/18/25 10:30 Morphine Sulfate 2 mg Q30M PRN IV 03/18/25 10:30 Hydromorphone HCl 0.5 mg Q4HP PRN IV 03/20/25 12:00 03/21/25 06:09 0.5 MG Clopidogrel Bisulfate 75 mg DAILY PO 03/20/25 12:49 03/20/25 14:22 75 MG Metoprolol Succinate 25 mg DAILY PO 03/20/25 12:49 03/20/25 14:23 25 MG Ranolazine 500 mg BID PO 03/20/25 12:50 03/20/25 20:12 500 MG Oxycodone HCl 20 mg Q12HP PO 03/20/25 22:00 03/20/25 20:12 20 MG Levofloxacin/ Dextrose 100 ml @ 100 mls/hr DAILY IV 03/20/25 20:00 03/20/25 20:14 100 MLS/HR Mupirocin 1 applic BID EACHNOSTRI 03/20/25 22:00 03/25/25 21:59 03/20/25 20:23 1 APPLIC laboratory and microbiology Laboratory Tests 03/17/25 15:43 Test 03/17/25 15:43 Range/Units Serum Glucose 103 74-106 mg/dL Assessment/Plan The patient is an 79-year-old female who initially presented to the emergency department on 03/19/2025 with complaints of chest pain that began two days prior to presentation. She describes the pain as a dull substernal pressure, non- radiating, and associated with episodes of lightheadedness, nausea, and shortness of breath. The patient also reported that, although uncertain, she felt as if her pacemaker may have fired. At present, she reports mild improvement in her chest discomfort but continues to experience exertional shortness of breath. She denies palpitations, dizziness, orthopnea, or paroxysmal nocturnal dyspnea. Initial electrocardiogram demonstrated AV-paced rhythm at 69 bpm with no acute ST or T wave changes. Laboratory results revealed hemoglobin 13.0, high- sensitivity troponin 22 - 23 - 24, potassium 4.5, creatinine 1.21 with GFR 45. Urinalysis was positive for leukocytes and WBCs. BNP was 564. Chest X-ray demonstrated no evidence of acute cardiopulmonary abnormality. Past Medical History: Hypertension, hyperlipidemia, coronary artery disease, status post CABG (2010), systolic heart failure due to ischemic cardiomyopathy, gout, kidney stones status post ESWL, frequent urinary tract infections, history of cerebrovascular accident, diverticulosis, COPD, status post COVID-19 infection, depression, anxiety, GERD, history of appendectomy, hysterectomy, and tonsillectomy. The patient also has a Biotronik ICD in place and is chronically wheelchair-bound. She was previously on hospice for advanced heart failure. The patient is allergic to codeine, is a former smoker, and is currently DNR. Cardiac Testing History: Cardiac Catheterization (August 26, 2024 [facility]): Revealed triple-vessel [place] coronary artery disease with chronic total occlusion (FOOD SERVICE SPECIALIST) of the obtuse marginal and RCA. LAD showed a 75% lesion, status post drug-eluting stent deployment. Patent SVG to obtuse marginal and patent SVG to RCA were noted. Cardiac Catheterization (September 2020): Ejection fraction 20%. FOOD SERVICE SPECIALIST of SVG to diagonal. Patent TAN, patent SVG to OM, patent SVG to PDA, and FOOD SERVICE SPECIALIST of RCA. Echocardiogram (11/30/2024): Dilated left ventricle was observed. Diffuse hypokinesis of left ventricle with regional variation was seen. The LVEF was around 10%. Filling pressure of left ventricle was increased. Right ventricle was not well-visualized. Systolic function of right ventricle was reduced. Both atria were normal sized. Pacing wire in the right sided chambers was seen. Aortic valve was not well visualized. There was no aortic insufficiency/emesis. There was mild mitral regurgitation. There was trace tricuspid regurgitation. Pulmonary valve was not well visualized. As there was no acute tricuspid regurgitation jet, right ventricular systolic pressure could not be estimated. There was no pericardial effusion. Echocardiogram (September 04, 2024): Dilated left ventricle with LVEF 10%. Increased LV end-diastolic pressure. Pacing wire seen in right-sided chambers. Mild mitral regurgitation. No measurable TR jet to estimate RVSP. Echocardiogram (August 25, 2024 [facility]): LVEF approximately 20%. Echocardiogram (May 26, 2024): LVEF 1520%. Biatrial enlargement. Pacing wire visualized in right-sided chambers. Echocardiogram (August 28, 2023): Dilated left ventricle with significantly reduced systolic function (LVEF 20%). Elevated LVEDP. Four-chamber dilation noted. Pacing wire in right-sided chambers. Mild to moderate mitral regurgitation. Echocardiogram (March 25, 2023): Four-chamber dilation. LVEF 2025%. Mild to moderate mitral regurgitation. Mild tricuspid regurgitation. Trace pulmonary insufficiency. RVSP 35 mmHg. Echocardiogram (January 03, 2023): LVEF 2025%. Mild left ventricular enlargement. Echocardiogram (March 21, 2022): LVEF approximately 20%. Mild mitral and tricuspid regurgitation. Echocardiogram (February 17, 2021): Dilated left ventricle with LVEF 25%. Severe diffuse hypokinesis. Increased LVEDP. Dilated left and right atria. Mild to moderate MR. Mild TR. Echocardiogram (December 30, 2020): LVEF <20%. Dilated left atrium. Echocardiogram (August 2020): LVEF <25%. Right and left atrial enlargement. Moderate mitral regurgitation. Recognizing the patients presentation, electrocardiogram findings, and laboratory results, acute coronary syndrome is not considered at this time. As ACS is not suspected, no inpatient ischemic workup is warranted at this time. However, given the patients report of possible device activity and her complex cardiac history, recommend device interrogation to evaluate for any recent arrhythmias, episodes of ventricular tachycardia or fibrillation, or inappropriate shocks that may correlate with her symptoms. Continue to monitor on telemetry for rhythm abnormalities or pacing irregularities. Continue guideline-directed medical therapy for chronic systolic heart failure and ischemic cardiomyopathy. Assessment: Chronic systolic heart failure due to ischemic cardiomyopathy Coronary artery disease, status post CABG Chronic kidney disease, stage 3a (GFR 45) Chest pain, non-ischemic in presentation Status post Biotronik ICD implantation History of cerebrovascular accident Depression and anxiety Urinary tract infection Hyperlipidemia Hypertension COPD, stable Cardiology Recommendations: Request for device interrogation (Pending) Proceed with close rate and rhythm surveillance Proceed with close hemodynamic surveillance Proceed with optimized blood pressure control Transfuse to sustain HGB levels above 7.0 Sustain Magnesium level greater than 2.0 Sustain Potassium level greater than 4.0 Follow up renal function and electrolytes Management in Telemetry Will proceed to follow from a cardiac perspective Further recommendations per clinical progression All available labs, EKGs, and images were personally reviewed Patient's status, findings, and plan of care was discussed and reviewed with supervising physician Dr. Claudio, who is in agreement with current plan of care. Plan of care discussed with and agreed upon by patient/family/Primary RN. Prognosis: Guarded Thank you for allowing me to participate in the care of this patient. Further recommendations will depend on clinical progression, hospitalist, and other consultants. Will continue to follow with Primary. If you have any questions, please do not hesitate to contact me. A total of 75 minutes was spent reviewing the patient record, examining the patient, making a diagnostic and therapeutic plan, discussing this plan with medical personnel, following up on diagnostic studies and following the patient for clinical stability excluding any and all procedures. At least 50% of this time was spent in direct, [id number] contact. Dietary Evaluation Review Comments: 1) Continue cardiac diet 2) Encourage optimal PO intake 3) Follow-up with cardiology and pulmonology 4) Continue to monitor I&O, labs, and skin integrity Expected Outcomes/Goals: 1) appetite and labs to improve 2) f/u in 3-5 days Plan discussed with: Patient REJI VILLEDA SHREDDING MACHINE TENDER Mar 21, 2025 09:52
--- NOTE | 2025-03-21 18:54 | DVHPN2 ---
Progress Note - Dictate Date Seen: Mar 21, 2025 Has the PT tested + for MRSA If YES, has PT been informed?: No Medical Necessity Reason Pt with a Central, PICC or Fol: No Subjective Patient was seen and evaluated in follow up. No acute events overnight. No new complaints. Awaiting Giftbarronik ICD interrogation. vital signs Vital Sign Date Time Temp Pulse Resp B/P (MAP) Pulse Ox O2 Delivery O2 Flow Rate FiO2 03/21/25 18:25 69 16 126/71 03/21/25 17:00 98.9 98 98.9 03/21/25 08:00 Nasal Cannula* 2 28 Total Intake and Output 03/20/25 03/20/25 03/21/25 15:00 23:00 07:00 Intake Total 240 ml 700 ml 118 ml Balance 240 ml 700 ml 118 ml medications Current Medications Medications Dose Ordered Sig/Asha Route Start Time Stop Time Status Last Admin Dose Admin Acetaminophen/ Hydrocodone Bitart 1 tab Q4HP PRN PO 03/18/25 10:15 Ondansetron HCl 4 mg Q4HP PRN IV 03/18/25 10:15 03/21/25 18:25 4 MG Docusate Sodium 100 mg BIDPRN PRN PO 03/18/25 10:15 Acetaminophen 650 mg Q6HP PRN PO 03/18/25 10:15 Morphine Sulfate 2 mg Q4HPRN PRN IV 03/18/25 10:15 Hold Nitroglycerin 0.4 mg Q5MINP PRN SL 03/18/25 10:30 Morphine Sulfate 2 mg Q30M PRN IV 03/18/25 10:30 Hydromorphone HCl 0.5 mg Q4HP PRN IV 03/20/25 12:00 03/21/25 18:25 0.5 MG Clopidogrel Bisulfate 75 mg DAILY PO 03/20/25 12:49 03/21/25 10:39 75 MG Metoprolol Succinate 25 mg DAILY PO 03/20/25 12:49 03/21/25 10:40 25 MG Ranolazine 500 mg BID PO 03/20/25 12:50 03/21/25 10:39 500 MG Oxycodone HCl 20 mg Q12HP PO 03/20/25 22:00 03/20/25 20:12 20 MG Mupirocin 1 applic BID EACHNOSTRI 03/20/25 22:00 03/25/25 21:59 03/21/25 10:38 1 APPLIC Levofloxacin 50 ml @ 50 mls/hr DAILY IV 03/22/25 10:00 objective Vitals and nursing notes reviewed. General Appearance: In no acute distress, Obese HEENT: Normal ENT Inspection, Pharynx Normal Neck: Full Range of Motion, Non-Tender, Normal, Normal Inspection Respiratory: Lungs Clear, No Respiratory Distress, Normal Breath Sounds Cardiovascular: No Edema, Regular Rate/Rhythm, Other (Pacemaker to the chest) Gastrointestinal: No Organomegaly, Non Tender, No Pulsatile Mass, Normal Bowel Sounds, Soft Extremities: No calf tenderness, Non-tender, No pedal edema Musculoskeletal : Normal Neurologic: Alert, engineering psychologist II-XII nml as Tested, No Motor Deficits, Normal Affect, Normal Mood, No Sensory Deficits Skin: Dry, Normal Color, Warm laboratory and microbiology Laboratory Tests 03/17/25 15:43 Test 03/17/25 15:43 Range/Units Serum Glucose 103 74-106 mg/dL Problem List Chest pain Acute kidney injury Urinary tract infection Code Status: DNR Assessment/Plan Agree with current supportive medical care. Currently resides in SNF. Possible discharge back tomorrow. Cardiology consult. Orthopedic Surgery consult. F/u labs. Electrolyte replacement prn. IV Levofloxacin. MRSA nares positive. Continued on Mupirocin. Pain management prn. Additional plan as per the hospital course. Dietary Evaluation Review Comments: 1) Continue cardiac diet 2) Encourage optimal PO intake 3) Follow-up with cardiology and pulmonology 4) Continue to monitor I&O, labs, and skin integrity Expected Outcomes/Goals: 1) appetite and labs to improve 2) f/u in 3-5 days Plan discussed with: Patient, Other (RN) MARIBETH GUTIERRES DO Mar 21, 2025 18:54
[2025-03-22] VITALS (8 sets, daily range): BP systolic 103–123; BP diastolic 55–74; PULSE 61–84; RESP 17–18; TEMP 96.4–98.2; O2SAT 92–97
--- NOTE | 2025-03-22 08:28 | DVHPN2 ---
Progress Note - Dictate Date Seen: Mar 22, 2025 Has the PT tested + for MRSA If YES, has PT been informed?: No Medical Necessity Reason Pt with a Central, PICC or Fol: No vital signs Vital Sign Date Time Temp Pulse Resp B/P (MAP) Pulse Ox O2 Delivery O2 Flow Rate FiO2 03/22/25 07:15 70 16 121/67 03/22/25 05:00 98.2 97 98.2 03/21/25 20:00 Nasal Cannula* 2 28 Total Intake and Output 03/21/25 03/21/25 03/22/25 15:00 23:00 07:00 Intake Total 250 ml 845 ml 545 ml Output Total 0 ml Balance 250 ml 845 ml 545 ml medications Current Medications Medications Dose Ordered Sig/Asha Route Start Time Stop Time Status Last Admin Dose Admin Acetaminophen/ Hydrocodone Bitart 1 tab Q4HP PRN PO 03/18/25 10:15 Ondansetron HCl 4 mg Q4HP PRN IV 03/18/25 10:15 03/22/25 07:15 4 MG Docusate Sodium 100 mg BIDPRN PRN PO 03/18/25 10:15 Acetaminophen 650 mg Q6HP PRN PO 03/18/25 10:15 Morphine Sulfate 2 mg Q4HPRN PRN IV 03/18/25 10:15 Hold Nitroglycerin 0.4 mg Q5MINP PRN SL 03/18/25 10:30 Morphine Sulfate 2 mg Q30M PRN IV 03/18/25 10:30 Hydromorphone HCl 0.5 mg Q4HP PRN IV 03/20/25 12:00 03/22/25 07:15 0.5 MG Clopidogrel Bisulfate 75 mg DAILY PO 03/20/25 12:49 03/21/25 10:39 75 MG Metoprolol Succinate 25 mg DAILY PO 03/20/25 12:49 03/21/25 10:40 25 MG Ranolazine 500 mg BID PO 03/20/25 12:50 03/21/25 19:46 500 MG Oxycodone HCl 20 mg Q12HP PO 03/20/25 22:00 03/20/25 20:12 20 MG Mupirocin 1 applic BID EACHNOSTRI 03/20/25 22:00 03/25/25 21:59 03/21/25 19:47 1 APPLIC Levofloxacin 50 ml @ 50 mls/hr DAILY IV 03/22/25 10:00 laboratory and microbiology Laboratory Tests 03/17/25 15:43 Test 03/17/25 15:43 Range/Units Serum Glucose 103 74-106 mg/dL Assessment/Plan Patient is a 79-year-old female who presented to the hospital for chest pain and questioning if the ICD has fired. Cardiology is involved for cardiac aspects of care. Patient herself is known to have coronary artery disease for which she is status post previous 3-V CABG and PCI involving LAD 08/26/2024 on DAPT (Plavix/Aspirin). She is furthermore known to have baseline history ischemic cardiomyopathy with last known LVEF of 10% as per Echocardiogram findings 11/30/2024 which she is status post previous Biotronik biventricular AICD implantation. Not in acute distress. No JVD. Mucosa is pink and wet. No carotid bruit. Not using accessory muscles of breathing. Lungs are clear to auscultation. Cardiac: Regular, no thrill/gallop. Systolic murmur 2/6 in apex is heard. Abdomen is soft. Bowel sound is positive. No hepatomegaly. Extremities do not reveal edema. Dorsalis pedis is 2+ bilateral Past medical history includes hypertension, hyperlipidemia, coronary artery disease, history of CABG (2010), systolic heart failure, ischemic cardiomyopathy, gout, kidney stone, s/p ESWL, frequent UTI, history of CVA, Diverticulosis, COPD, Emphysema, s/p COVID, depression, Anxiety, GERD, Hip fracture and s/p ORIF, history of appendectomy/hysterectomy/tonsillectomy, and history of BiV ICD (Biotronik) implantation. She is chronically wheelchair- bound. She was previously in hospice for heart failure. She is allergic to codeine. She quit smoking years ago. She is DNR. She also has diagnosis of parkinsonism. Cardiac catheterization of August 26, 2024 (performed in [facility]) revealed triple-vessel [place] coronary artery disease. DOPE WORKER of obtuse marginal. DOPE WORKER of RCA. Lad with 75% lesion and status post drug-eluting stent deployment. It is of note that there is patent SVG to obtuse marginal and also patent SVG to RCA. Cardiac catheterization of September 2020 revealed ejection fraction of 20%, DOPE WORKER of SVG to diagonal, patent TAN, patent SVG to OM, patent SVG to PDA and DOPE WORKER of RCA. Echocardiogram of November 30, 2024 revealed Dilated left ventricle, LVEF of around 10%. Pacing wire was seen in the right-sided chambers. There was mild mitral regurgitation. There was trace tricuspid regurgitation. As there was no good tricuspid regurgitation jet, right ventricular systolic pressure could not be estimated. Echocardiogram of September 04, 2024 reported: Dilated left ventricle. LVEF of 10%. Increased EDP. Pacing wire in right-sided chambers. Mild mitral regurgitation. As there was no good tricuspid regurgitation jet, right ventricular systolic pressure could not be estimated Echocardiogram of August 25, 2024 (performed in [facility]) for PE old ejection fraction of 20% Echocardiogram of reported: LV EF of 15-20%, biatrial enlargement, pacing wire in the right-sided chambers. Echocardiogram of November 22, 2023 revealed: Dilated left ventricle, LVEF of 10%, pacing wire and right-sided chambers, mild mitral regurgitation. Echocardiogram of August 28, 2023 revealed: Dilated left ventricle with significantly reduced systolic function. LVEF of 20%. Elevated LVEDP, dilated four chambers. Pacing wire was seen in right-sided chamber. [id number] MR. Echocardiogram of January 03, 2023 revealed ejection fraction of 20 to 25% and mild left ventricular enlargement Echocardiogram of March 25, 2023 (performed in the office) revealed four- chamber dilatation, LVEF of 20 to 25%, mild to moderate MR, mild TR, trace pulmonary valve insufficiency and right ventricular systolic pressure of 35 mmHg Echocardiogram of March 21, 2022 revealed ejection fraction of around 20%, mild MR/TR Echocardiogram of February 17, 2021 revealed dilated LV, LVEF around 25%, severe diffuse hypokinesis, increased LVEDP, dilated left and right atria, mild to moderate MR, mild TR. Echocardiogram of December 30, 2020 reported ejection fraction less than 20% and dilated left atrium. Echocardiogram of August 2020 revealed ejection fraction less than 25%, right atrial enlargement, left atrial enlargement and moderate MR. Creatinine: 1.21 Potassium: 4.5 Trop (high sensitive): 22 - 23 - 24 BNP: 564.93 Chest xry revealed: IMPRESSION: 1. No radiographic evidence of acute cardiopulmonary abnormality. EKG reveals paced ventricular rhythm Patient is 79 year old female who came with atypical chest pain. IA/ACS ruled out and not considered. Does have ICD and its interrogation is suggested. Atypical chest pain Coronary artery disease, status post previous CABG/PCI Presence of Biotronik biventricular AICD Ischemic cardiomyopathy, history of Hypertension, controlled Hyperlipidemia Acute cystitis s/p ortho surgery CARDIAC SUGGESTIONS FOR MANAGEMENT: Manage on telemetry Follow-up electrolytes and kidney function tests and correct abnormalities. Keep potassium above 4 and magnesium above 2 Continue Aspirin/Plavix Awaiting Biotronik interrogation. Continue Toprol-XL/Entresto/Aldactone/Ranolazine/Atorvastatin No indication to repeat ischemic workup/echocardiogram Evaluation and management of UTI/dysuria as per primary Further evaluation and management depends on the above and clinical course A total of 55 minutes was spent reviewing the patient record, examining the patient, making a diagnostic and therapeutic plan, discussing this plan with medical personnel, following up on diagnostic studies and following the patient for clinical stability excluding any and all procedures. At least 50% of this time was spent in direct, [id number] contact. Thank you for allowing me to participate in this patient's care. Further recommendations will depend on patient's clinical course. Please do not hesitate to contact me if you have any questions or concerns. This medical document was created using electronic medical record system with [employer] computerized dictation system. Although this document has been carefully reviewed, there may still be some phonetic and typographical errors. These areas are purely typographical due to the imperfection of the software programs, and do not reflect any compromise in the patient's medical care. Dietary Evaluation Review Comments: 1) Continue cardiac diet 2) Encourage optimal PO intake 3) Follow-up with cardiology and pulmonology 4) Continue to monitor I&O, labs, and skin integrity Expected Outcomes/Goals: 1) appetite and labs to improve 2) f/u in 3-5 days Plan discussed with: Patient, Other (nurse) RODRIGUEZ LEBRON MD Mar 22, 2025 08:28
[2025-03-22 10:51] LABS: Hematocrit 39.6 % (36.0-46.0); Hemoglobin 13.1 g/dL (12.2-16.2); Mean Corpuscular Hemoglobin 30.4 pg (28.0-32.0); Mean Corpuscular Volume 91.8 fL (80.0-100.0); Nucleated Red Blood Cells % 0.2 %
[2025-03-22 10:59] LABS: Potassium 4.3 mmol/L (3.5-5.1); Sodium 141 mmol/L (136-145)
[2025-03-22 11:00] LABS: Anion Gap 6 (5-15); Calcium 9.1 mg/dL (8.7-10.4); Carbon Dioxide 27 mmol/L (20-31)
[2025-03-22] MEDS: SACUBITRIL-VALSARTAN 24mg/26mg TAB PO SCH (11:00)
[2025-03-22] MEDS: SPIRONOLACTONE 25 MG TAB PO SCH (11:00)
[2025-03-22 11:05] LABS: BUN/Creatinine Ratio 16.3 (10.0-20.0); Blood Urea Nitrogen 14 mg/dL (9-23); Glucose 99 mg/dL (74-106)
[2025-03-22 11:14] LABS: Chloride 108 mmol/L (98-107)
--- NOTE | 2025-03-22 20:21 | DVHPN2 ---
Progress Note - Dictate Date Seen: Mar 22, 2025 Has the PT tested + for MRSA If YES, has PT been informed?: No Medical Necessity Reason Pt with a Central, PICC or Fol: No Subjective Patient was seen and evaluated in follow up. No acute events overnight. No complaints. Still awaiting Biotronik ICD interrogation. Renal function improved. vital signs Vital Sign Date Time Temp Pulse Resp B/P (MAP) Pulse Ox O2 Delivery O2 Flow Rate FiO2 03/22/25 17:00 98.0 84 18 103/55 (71) 92 98.0 03/22/25 08:00 Nasal Cannula* 2 28 Total Intake and Output 03/21/25 03/21/25 03/22/25 15:00 23:00 07:00 Intake Total 250 ml 845 ml 545 ml Output Total 0 ml Balance 250 ml 845 ml 545 ml medications Current Medications Medications Dose Ordered Sig/Asha Route Start Time Stop Time Status Last Admin Dose Admin Acetaminophen/ Hydrocodone Bitart 1 tab Q4HP PRN PO 03/18/25 10:15 Ondansetron HCl 4 mg Q4HP PRN IV 03/18/25 10:15 03/22/25 16:12 4 MG Docusate Sodium 100 mg BIDPRN PRN PO 03/18/25 10:15 Acetaminophen 650 mg Q6HP PRN PO 03/18/25 10:15 Morphine Sulfate 2 mg Q4HPRN PRN IV 03/18/25 10:15 Hold Nitroglycerin 0.4 mg Q5MINP PRN SL 03/18/25 10:30 Morphine Sulfate 2 mg Q30M PRN IV 03/18/25 10:30 Hydromorphone HCl 0.5 mg Q4HP PRN IV 03/20/25 12:00 03/22/25 16:12 0.5 MG Clopidogrel Bisulfate 75 mg DAILY PO 03/20/25 12:49 03/22/25 11:00 75 MG Metoprolol Succinate 25 mg DAILY PO 03/20/25 12:49 03/22/25 11:01 25 MG Ranolazine 500 mg BID PO 03/20/25 12:50 03/22/25 11:00 500 MG Oxycodone HCl 20 mg Q12HP PO 03/20/25 22:00 03/20/25 20:12 20 MG Mupirocin 1 applic BID EACHNOSTRI 03/20/25 22:00 03/25/25 21:59 03/22/25 10:58 1 APPLIC Levofloxacin 50 ml @ 50 mls/hr DAILY IV 03/22/25 10:00 03/22/25 10:59 50 MLS/HR Atorvastatin Calcium 40 mg HS PO 03/22/25 22:00 Aspirin 81 mg DAILY PO 03/22/25 10:00 03/22/25 10:59 81 MG Sacubitril/ Valsartan 1 tab BID PO 03/22/25 10:00 03/22/25 11:00 1 TAB Spironolactone 25 mg DAILY PO 03/22/25 10:00 03/22/25 11:00 25 MG objective Vitals and nursing notes reviewed. General Appearance: In no acute distress, Obese HEENT: Normal ENT Inspection, Pharynx Normal Neck: Full Range of Motion, Non-Tender, Normal, Normal Inspection Respiratory: Lungs Clear, No Respiratory Distress, Normal Breath Sounds Cardiovascular: No Edema, Regular Rate/Rhythm, Other (Pacemaker to the chest) Gastrointestinal: No Organomegaly, Non Tender, No Pulsatile Mass, Normal Bowel Sounds, Soft Extremities: No calf tenderness, Non-tender, No pedal edema Musculoskeletal : Normal Neurologic: Alert, metal and plastic heater II-XII nml as Tested, No Motor Deficits, Normal Affect, Normal Mood, No Sensory Deficits Skin: Dry, Normal Color, Warm laboratory and microbiology Laboratory Tests 03/22/25 10:35 Test 03/22/25 10:35 Range/Units Serum Glucose 99 74-106 mg/dL Problem List Chest pain Acute kidney injury Urinary tract infection Code Status: DNR Assessment/Plan Agree with current supportive medical care. Cardiology following. Pending device interrogation. Orthopedic Surgery consult. Electrolyte replacement prn. IV Levofloxacin. MRSA nares positive. Continued on Mupirocin. Home medications as ordered. Pain management prn. Will discharge back to SNF once stable. Additional plan as per the hospital course. Dietary Evaluation Review Comments: 1) Continue cardiac diet 2) Encourage optimal PO intake 3) Follow-up with cardiology and pulmonology 4) Continue to monitor I&O, labs, and skin integrity Expected Outcomes/Goals: 1) appetite and labs to improve 2) f/u in 3-5 days Plan discussed with: Patient, Other (RN) MARIBETH GUTIERRES DO Mar 22, 2025 20:21
[2025-03-22] MEDS: ATORVASTATIN 20 MG TAB PO SCH (21:00)
[2025-03-23] VITALS (7 sets, daily range): BP systolic 102–132; BP diastolic 55–71; PULSE 53–66; RESP 17–18; TEMP 97.7–98.1; O2SAT 96–100
--- NOTE | 2025-03-23 07:21 | DVHPN2 ---
Progress Note - Dictate Date Seen: Mar 23, 2025 Has the PT tested + for MRSA If YES, has PT been informed?: No Medical Necessity Reason Pt with a Central, PICC or Fol: No vital signs Vital Sign Date Time Temp Pulse Resp B/P (MAP) Pulse Ox O2 Delivery O2 Flow Rate FiO2 03/23/25 05:46 65 16 98/50 03/23/25 04:59 98.0 99 98.0 03/22/25 20:00 Nasal Cannula* 2 28 Total Intake and Output 03/22/25 03/22/25 03/23/25 15:00 23:00 07:00 Intake Total 480 ml 550 ml Balance 480 ml 550 ml medications Current Medications Medications Dose Ordered Sig/Asha Route Start Time Stop Time Status Last Admin Dose Admin Acetaminophen/ Hydrocodone Bitart 1 tab Q4HP PRN PO 03/18/25 10:15 Ondansetron HCl 4 mg Q4HP PRN IV 03/18/25 10:15 03/23/25 05:16 4 MG Docusate Sodium 100 mg BIDPRN PRN PO 03/18/25 10:15 Acetaminophen 650 mg Q6HP PRN PO 03/18/25 10:15 Morphine Sulfate 2 mg Q4HPRN PRN IV 03/18/25 10:15 Hold Nitroglycerin 0.4 mg Q5MINP PRN SL 03/18/25 10:30 Morphine Sulfate 2 mg Q30M PRN IV 03/18/25 10:30 Hydromorphone HCl 0.5 mg Q4HP PRN IV 03/20/25 12:00 03/23/25 05:16 0.5 MG Clopidogrel Bisulfate 75 mg DAILY PO 03/20/25 12:49 03/22/25 11:00 75 MG Metoprolol Succinate 25 mg DAILY PO 03/20/25 12:49 03/22/25 11:01 25 MG Ranolazine 500 mg BID PO 03/20/25 12:50 03/22/25 20:57 500 MG Oxycodone HCl 20 mg Q12HP PO 03/20/25 22:00 03/20/25 20:12 20 MG Mupirocin 1 applic BID EACHNOSTRI 03/20/25 22:00 03/25/25 21:59 03/22/25 21:00 1 APPLIC Levofloxacin 50 ml @ 50 mls/hr DAILY IV 10/27/25 10:00 03/22/25 10:59 50 MLS/HR Atorvastatin Calcium 40 mg HS PO 03/22/25 22:00 03/22/25 21:00 40 MG Aspirin 81 mg DAILY PO 03/22/25 10:00 03/22/25 10:59 81 MG Sacubitril/ Valsartan 1 tab BID PO 03/22/25 10:00 03/22/25 21:00 1 TAB Spironolactone 25 mg DAILY PO 03/22/25 10:00 03/22/25 11:00 25 MG laboratory and microbiology Laboratory Tests 03/22/25 10:35 Test 03/22/25 10:35 Range/Units Serum Glucose 99 74-106 mg/dL Assessment/Plan Patient is a 79-year-old female who presented to the hospital for chest pain and questioning if the ICD has fired. Cardiology is involved for cardiac aspects of care. Patient herself is known to have coronary artery disease for which she is status post previous 3-V CABG and PCI involving LAD 08/26/2024 on DAPT (Plavix/Aspirin). She is furthermore known to have baseline history ischemic cardiomyopathy with last known LVEF of 10% as per Echocardiogram findings 11/30/2024 which she is status post previous Biotronik biventricular AICD implantation. Not in acute distress. No JVD. Mucosa is pink and wet. No carotid bruit. Not using accessory muscles of breathing. Lungs are clear to auscultation. Cardiac: Regular, no thrill/gallop. Systolic murmur 2/6 in apex is heard. Abdomen is soft. Bowel sound is positive. No hepatomegaly. Extremities do not reveal edema. Dorsalis pedis is 2+ bilateral Past medical history includes hypertension, hyperlipidemia, coronary artery disease, history of CABG (2010), systolic heart failure, ischemic cardiomyopathy, gout, kidney stone, s/p ESWL, frequent UTI, history of CVA, Diverticulosis, COPD, Emphysema, s/p COVID, depression, Anxiety, GERD, Hip fracture and s/p ORIF, history of appendectomy/hysterectomy/tonsillectomy, and history of BiV ICD (Biotronik) implantation. She is chronically wheelchair- bound. She was previously in hospice for heart failure. She is allergic to codeine. She quit smoking years ago. She is DNR. She also has diagnosis of parkinsonism. Cardiac catheterization of August 26, 2024 (performed in [facility]) revealed triple-vessel [place] coronary artery disease. GLUE LINE OPERATOR of obtuse marginal. GLUE LINE OPERATOR of RCA. Lad with 75% lesion and status post drug-eluting stent deployment. It is of note that there is patent SVG to obtuse marginal and also patent SVG to RCA. Cardiac catheterization of September 2020 revealed ejection fraction of 20%, GLUE LINE OPERATOR of SVG to diagonal, patent TAN, patent SVG to OM, patent SVG to PDA and GLUE LINE OPERATOR of RCA. Echocardiogram of November 30, 2024 revealed Dilated left ventricle, LVEF of around 10%. Pacing wire was seen in the right-sided chambers. There was mild mitral regurgitation. There was trace tricuspid regurgitation. As there was no good tricuspid regurgitation jet, right ventricular systolic pressure could not be estimated. Echocardiogram of September 04, 2024 reported: Dilated left ventricle. LVEF of 10%. Increased EDP. Pacing wire in right-sided chambers. Mild mitral regurgitation. As there was no good tricuspid regurgitation jet, right ventricular systolic pressure could not be estimated Echocardiogram of August 25, 2024 (performed in [facility]) for PE old ejection fraction of 20% Echocardiogram of reported: LV EF of 15-20%, biatrial enlargement, pacing wire in the right-sided chambers. Echocardiogram of November 22, 2023 revealed: Dilated left ventricle, LVEF of 10%, pacing wire and right-sided chambers, mild mitral regurgitation. Echocardiogram of August 28, 2023 revealed: Dilated left ventricle with significantly reduced systolic function. LVEF of 20%. Elevated LVEDP, dilated four chambers. Pacing wire was seen in right-sided chamber. [id number] MR. Echocardiogram of January 03, 2023 revealed ejection fraction of 20 to 25% and mild left ventricular enlargement Echocardiogram of March 25, 2023 (performed in the office) revealed four- chamber dilatation, LVEF of 20 to 25%, mild to moderate MR, mild TR, trace pulmonary valve insufficiency and right ventricular systolic pressure of 35 mmHg Echocardiogram of March 21, 2022 revealed ejection fraction of around 20%, mild MR/TR Echocardiogram of February 17, 2021 revealed dilated LV, LVEF around 25%, severe diffuse hypokinesis, increased LVEDP, dilated left and right atria, mild to moderate MR, mild TR. Echocardiogram of December 30, 2020 reported ejection fraction less than 20% and dilated left atrium. Echocardiogram of August 2020 revealed ejection fraction less than 25%, right atrial enlargement, left atrial enlargement and moderate MR. Creatinine: 1.21 - 0.86 Potassium: 4.5 - 4.3 Trop (high sensitive): 22 - 23 - 24 BNP: 564.93 Chest xry revealed: IMPRESSION: 1. No radiographic evidence of acute cardiopulmonary abnormality. EKG reveals paced ventricular rhythm Biotronik Interrogation: Battery status: MOS1; Remaining Battery capacity: 51%; DDDR/BiV: 65/130; Sensing Amplitude: A3.4/RV13.6/LV8.0 mV; Pacing Threshold: A0.9/RV1.0/LV3.0 V; Pacing impedance: A540/RV423/BF6957 Ohms; Shock impedance: 79 Ohms; Atrial [place]: 0.0%; Pacing A/LV/BiV/CARGO INSPECTOR: 39/1/97/98%; No recent episode of arrhythmia. Last episode was 5 minutes of SVT in ; Normal functioning BiV-ICD. No recent episodes of arrhythmia Patient is 79 year old female who came with atypical chest pain. NM/ACS ruled out and not considered. Does have ICD and its interrogation is suggested. Atypical chest pain Coronary artery disease, status post previous CABG/PCI Presence of Biotronik biventricular AICD Ischemic cardiomyopathy, history of Hypertension, controlled Hyperlipidemia Acute cystitis s/p ortho surgery CARDIAC SUGGESTIONS FOR MANAGEMENT: Manage on telemetry Follow-up electrolytes and kidney function tests and correct abnormalities. Keep potassium above 4 and magnesium above 2 Continue Aspirin/Plavix Continue Toprol-XL/Entresto/Aldactone/Ranolazine/Atorvastatin No indication to repeat ischemic workup/echocardiogram Cardiac monge, is stable. Further evaluation and management depends on the above and clinical course A total of 55 minutes was spent reviewing the patient record, examining the patient, making a diagnostic and therapeutic plan, discussing this plan with medical personnel, following up on diagnostic studies and following the patient for clinical stability excluding any and all procedures. At least 50% of this time was spent in direct, [id number] contact. Thank you for allowing me to participate in this patient's care. Further recommendations will depend on patient's clinical course. Please do not hesitate to contact me if you have any questions or concerns. This medical document was created using electronic medical record system with [employer] computerized dictation system. Although this document has been carefully reviewed, there may still be some phonetic and typographical errors. These areas are purely typographical due to the imperfection of the software programs, and do not reflect any compromise in the patient's medical care. Dietary Evaluation Review Comments: 1) Continue cardiac diet 2) Encourage optimal PO intake 3) Follow-up with cardiology and pulmonology 4) Continue to monitor I&O, labs, and skin integrity Expected Outcomes/Goals: 1) appetite and labs to improve 2) f/u in 3-5 days Plan discussed with: Patient, Other (nurse) RODRIGUEZ LEBRON MD Mar 23, 2025 07:21
--- NOTE | 2025-03-23 09:22 | DVHNC2 ---
Procedure - Biotronik Interrogation: Battery status: MOS1 Remaining Battery capacity: 51% DDDR/BiV: 65/130 Sensing Amplitude: A3.4/RV13.6/LV8.0 mV Pacing Threshold: A0.9/RV1.0/LV3.0 V Pacing impedance: A540/RV423/IU6232 Ohms Shock impedance: 79 Ohms Atrial [place]: 0.0% Pacing A/LV/BiV/COMMUNITY LIVING SPECIALIST: 39/1/97/98% No recent episode of arrhythmia. Last episode was 5 minutes of SVT in Normal functioning BiV-ICD. No recent episodes of arrhythmia RODRIGUEZ LEBRON MD Mar 23, 2025 09:22
--- NOTE | 2025-03-23 14:24 | DVHPN2 ---
Progress Note Date Seen: Mar 22, 2025 Has the PT tested + for MRSA If YES, has PT been informed?: No Medical Necessity Reason Pt with a Central, PICC or Fol: No Objective vital signs Vital Sign Date Time Temp Pulse Resp B/P (MAP) Pulse Ox O2 Delivery O2 Flow Rate FiO2 03/23/25 13:06 68 17 128/68 03/23/25 13:00 97.8 96 97.8 03/23/25 08:00 Nasal Cannula* 2 28 Total Intake and Output 03/22/25 03/22/25 03/23/25 15:00 23:00 07:00 Intake Total 480 ml 550 ml Balance 480 ml 550 ml medications Current Medications Medications Dose Ordered Sig/Asha Route Start Time Stop Time Status Last Admin Dose Admin Acetaminophen/ Hydrocodone Bitart 1 tab Q4HP PRN PO 03/18/25 10:15 Ondansetron HCl 4 mg Q4HP PRN IV 03/18/25 10:15 03/23/25 13:07 4 MG Docusate Sodium 100 mg BIDPRN PRN PO 03/18/25 10:15 Acetaminophen 650 mg Q6HP PRN PO 03/18/25 10:15 Morphine Sulfate 2 mg Q4HPRN PRN IV 03/18/25 10:15 Hold Nitroglycerin 0.4 mg Q5MINP PRN SL 03/18/25 10:30 Morphine Sulfate 2 mg Q30M PRN IV 03/18/25 10:30 Hydromorphone HCl 0.5 mg Q4HP PRN IV 03/20/25 12:00 03/23/25 13:06 0.5 MG Clopidogrel Bisulfate 75 mg DAILY PO 03/20/25 12:49 03/23/25 09:29 75 MG Metoprolol Succinate 25 mg DAILY PO 03/20/25 12:49 03/23/25 09:30 25 MG Ranolazine 500 mg BID PO 03/20/25 12:50 03/23/25 09:29 500 MG Oxycodone HCl 20 mg Q12HP PO 03/20/25 22:00 03/20/25 20:12 20 MG Mupirocin 1 applic BID EACHNOSTRI 03/20/25 22:00 03/25/25 21:59 03/23/25 09:27 1 APPLIC Levofloxacin 50 ml @ 50 mls/hr DAILY IV 03/22/25 10:00 03/23/25 09:27 50 MLS/HR Atorvastatin Calcium 40 mg HS PO 03/22/25 22:00 03/22/25 21:00 40 MG Aspirin 81 mg DAILY PO 03/22/25 10:00 03/23/25 09:28 81 MG Sacubitril/ Valsartan 1 tab BID PO 03/22/25 10:00 03/23/25 09:28 1 TAB Spironolactone 25 mg DAILY PO 03/22/25 10:00 03/23/25 09:28 25 MG laboratory and microbiology Laboratory Tests 03/22/25 10:35 Test 03/22/25 10:35 Range/Units Serum Glucose 99 74-106 mg/dL Microbiology Date/Time Source Procedure Growth Status 03/22/25 03:06 Voided Urine Urine Culture - Preliminary Resulted 03/18/25 18:45 Nose MRSA Screen - Final Methicillin Resistant S.aureus Complete Labs and/or images reviewed: Labs reviewed by me, Image(s) reviewed by me Problem List/Assessment/Plan Problem List/Assessment/Plan chest pain rule out ACS Chronic systolic heart failure due to ischemic cardiomyopathy Coronary artery disease, status post CABG Chronic kidney disease, stage 3a (GFR 45) Chest pain, non-ischemic in presentation Status post Biotronik ICD implantation History of cerebrovascular accident Depression and anxiety Urinary tract infection Hyperlipidemia Hypertension COPD, stable Acute kidney injury Urinary tract infection pending evaluation by cardiology Plan discussed with: Patient Dietary Evaluation Review Comments: 1) Continue cardiac diet 2) Encourage optimal PO intake 3) Follow-up with cardiology and pulmonology 4) Continue to monitor I&O, labs, and skin integrity Expected Outcomes/Goals: 1) appetite and labs to improve 2) f/u in 3-5 days LEANNA BROWN DO Mar 23, 2025 14:24
--- NOTE | 2025-03-23 19:47 | DVHPN2 ---
Progress Note - Dictate Date Seen: Mar 23, 2025 Has the PT tested + for MRSA If YES, has PT been informed?: No Medical Necessity Reason Pt with a Central, PICC or Fol: No Subjective Patient was seen and evaluated in follow up. No acute events overnight. No new complaints. ACS ruled out per cardiology. Patient is planned for transfer back to assisted living facility. LENORA resolved. vital signs Vital Sign Date Time Temp Pulse Resp B/P (MAP) Pulse Ox O2 Delivery O2 Flow Rate FiO2 03/23/25 17:34 64 18 122/68 03/23/25 17:00 97.8 99 97.8 03/23/25 08:00 Nasal Cannula* 2 28 Total Intake and Output 03/22/25 03/22/25 03/23/25 15:00 23:00 07:00 Intake Total 480 ml 550 ml Balance 480 ml 550 ml medications Current Medications Medications Dose Ordered Sig/Asha Route Start Time Stop Time Status Last Admin Dose Admin Acetaminophen/ Hydrocodone Bitart 1 tab Q4HP PRN PO 03/18/25 10:15 Ondansetron HCl 4 mg Q4HP PRN IV 03/18/25 10:15 03/23/25 17:35 4 MG Docusate Sodium 100 mg BIDPRN PRN PO 03/18/25 10:15 Acetaminophen 650 mg Q6HP PRN PO 03/18/25 10:15 Morphine Sulfate 2 mg Q4HPRN PRN IV 03/18/25 10:15 Hold Nitroglycerin 0.4 mg Q5MINP PRN SL 03/18/25 10:30 Morphine Sulfate 2 mg Q30M PRN IV 03/18/25 10:30 Hydromorphone HCl 0.5 mg Q4HP PRN IV 03/20/25 12:00 03/23/25 17:34 0.5 MG Clopidogrel Bisulfate 75 mg DAILY PO 03/20/25 12:49 03/23/25 09:29 75 MG Metoprolol Succinate 25 mg DAILY PO 03/20/25 12:49 03/23/25 09:30 25 MG Ranolazine 500 mg BID PO 03/20/25 12:50 03/23/25 09:29 500 MG Oxycodone HCl 20 mg Q12HP PO 03/20/25 22:00 03/20/25 20:12 20 MG Mupirocin 1 applic BID EACHNOSTRI 03/20/25 22:00 03/25/25 21:59 03/23/25 09:27 1 APPLIC Levofloxacin 50 ml @ 50 mls/hr DAILY IV 03/22/25 10:00 03/23/25 09:27 50 MLS/HR Atorvastatin Calcium 40 mg HS PO 03/22/25 22:00 03/22/25 21:00 40 MG Aspirin 81 mg DAILY PO 03/22/25 10:00 03/23/25 09:28 81 MG Sacubitril/ Valsartan 1 tab BID PO 03/22/25 10:00 03/23/25 09:28 1 TAB Spironolactone 25 mg DAILY PO 03/22/25 10:00 03/23/25 09:28 25 MG objective Vitals and nursing notes reviewed. General Appearance: In no acute distress, Obese HEENT: Normal ENT Inspection, Pharynx Normal Neck: Full Range of Motion, Non-Tender, Normal, Normal Inspection Respiratory: Lungs Clear, No Respiratory Distress, Normal Breath Sounds Cardiovascular: No Edema, Regular Rate/Rhythm, Other (Pacemaker to the chest) Gastrointestinal: No Organomegaly, Non Tender, No Pulsatile Mass, Normal Bowel Sounds, Soft Extremities: No calf tenderness, Non-tender, No pedal edema Musculoskeletal : Normal Neurologic: Alert, employee wellness/fitness coordinator II-XII nml as Tested, No Motor Deficits, Normal Affect, Normal Mood, No Sensory Deficits Skin: Dry, Normal Color, Warm laboratory and microbiology Laboratory Tests 03/22/25 10:35 Test 03/22/25 10:35 Range/Units Serum Glucose 99 74-106 mg/dL Problem List Chest pain Acute kidney injury Urinary tract infection Code Status: DNR Assessment/Plan DC planning in progress. Cleared for discharge from Nephrology standpoint. Dietary Evaluation Review Comments: 1) Continue cardiac diet 2) Encourage optimal PO intake 3) Follow-up with cardiology and pulmonology 4) Continue to monitor I&O, labs, and skin integrity Expected Outcomes/Goals: 1) appetite and labs to improve 2) f/u in 3-5 days Plan discussed with: Patient, Other (RN) MARIBETH GUTIERRES DO Mar 23, 2025 19:47
--- NOTE | 2025-03-26 11:31 | DVHDS2 ---
Discharge Summary Date of Admission Mar 17, 2025 at 21:14 Date of Discharge: Mar 23, 2025 Labs/Diagnostic Data: Laboratory Results Test 03/22/25 10:35 03/18/25 12:09 03/17/25 19:41 03/17/25 15:43 White Blood Count 6.7 10^3/uL (4.4-10.8) Red Blood Count 4.31 10^6/uL (4.0-5.20) Hemoglobin 13.1 g/dL (12.2-16.2) Hematocrit 39.6 % (36.0-46.0) Mean Corpuscular Volume 91.8 fL (80.0-100.0) Mean Corpuscular Hemoglobin 30.4 pg (28.0-32.0) Mean Corpuscular Hemoglobin Concent 33.2 g/dL (32.0-36.0) Red Cell Distribution Width 17.1 % (11.8-14.3) Platelet Count 234 10^3/uL (140-450) Mean Platelet Volume 8.2 fL (6.9-10.8) Neutrophils (%) (Auto) 57.1 % (37.0-80.0) Lymphocytes (%) (Auto) 26.6 % (10.0-50.0) Monocytes (%) (Auto) 10.8 % (0.0-12.0) Eosinophils (%) (Auto) 4.9 % (0.0-7.0) Basophils (%) (Auto) 0.6 % (0.0-2.0) Neutrophils # (Auto) 3.8 10 ^3/uL (1.6-8.6) Lymphocytes # (Auto) 1.8 10 ^3/uL (0.4-5.4) Monocytes # (Auto) 0.7 10 ^3/uL (0-1.3) Eosinophils # (Auto) 0.3 10 ^3/uL (0-0.8) Basophils # (Auto) 0 10 ^3/uL (0-0.2) Nucleated Red Blood Cells 0.2 % Sodium Level 141 mmol/L (136-145) Potassium Level 4.3 mmol/L (3.5-5.1) Chloride Level 108 mmol/L (98-107) Carbon Dioxide Level 27 mmol/L (20-31) Anion Gap 6 (5-15) Blood Urea Nitrogen 14 mg/dL (9-23) Creatinine 0.86 mg/dL (0.550-1.02) Glomerular Filtration Rate Calc 68 mL/min (>90) BUN/Creatinine Ratio 16.3 (10.0-20.0) Serum Glucose 99 mg/dL (74-106) Calcium Level 9.1 mg/dL (8.7-10.4) Urine Color Yellow (Yellow) Urine Clarity Clear (Clear) Urine pH 5.5 (5.0-9.0) Urine Specific [place] 1.023 (1.001-1.035) Urine Protein Negative (Negative) Urine Ketones Negative (Negative) Urine Blood Negative /uL (Negative) Urine Nitrite Negative (Negative) Urine Bilirubin Negative (Negative) Urine Urobilinogen Normal mg/dL (Negative) Urine Leukocyte Esterase 3+ /uL (Negative) Urine RBC 5 /hpf (0 - 4) Urine Microscopic WBC 29 /HPF (0-5) Urine Squamous Epithelial Cells Few /hpf (<5) Urine Bacteria Few /hpf (None Seen) Urine Glucose Normal mg/dL (Normal) Troponin I High Sensitivity 24 ng/L (</=34) B-Type Natriuretic Peptide 564.93 pg/mL (0-100) Other Laboratory Tests 03/22/25 10:35 Brief Hx & Hospital Course: chest pain rule out ACS Chronic systolic heart failure due to ischemic cardiomyopathy Coronary artery disease, status post CABG Chronic kidney disease, stage 3a (GFR 45) Chest pain, non-ischemic in presentation Status post Biotronik ICD implantation History of cerebrovascular accident Depression and anxiety Urinary tract infection Hyperlipidemia Hypertension COPD, stable Acute kidney injury Urinary tract infection pending evaluation by cardiology Condition at Discharge: Fair Final Diagnosis/Problems List see above Discharge Disposition: Assisted Living Facility Discharge Instruct/Medications Diet: Cardiac 2g Na,low cholest Activity: No Restrictions, As Tolerated Scheduled Ascorbic Acid (Vitamin C Tablet), 1 TAB PO BID, (Reported) Aspirin (Aspir-Low), 1 TAB PO DAILY, (Reported) Atorvastatin Calcium (Atorvastatin Calcium), 40 MG PO HS Cholecalciferol (Vitamin D3), 1 TAB PO BID, (Reported) Ciprofloxacin Hcl (Cipro), 250 MG PO BID Clopidogrel Bisulfate (Clopidogrel), 75 MG PO DAILY Duloxetine Hydrochloride (Duloxetine Hydrochloride), 30 MG PO DAILY Fluticasone-Salmeterol (Fluticasone Propionate/SA 250-50 Mcg/Dose), 1 PUFF INH BID, (Reported) Levofloxacin Hemihydrate (Levofloxacin), 750 MG PO DAILY Metoprolol Succinate (Metoprolol Succinate Er), 1 TAB PO DAILY Multiple Vitamin (Tab-A-Radha), 1 TAB PO DAILY, (Reported) Oxybutynin Chloride (Oxybutynin Chloride), 5 MG PO Q8HR Oxycodone W/ Acetaminophen (Percocet 5/325MG), 1 TAB PO QID Pantoprazole Sodium Sesquihydr (Pantoprazole Sodium), 1 TAB PO DAILY, (Reported) Phenazopyridine HCl (Eq Urinary Pain Relief Ma), 99.5 MG PO TID Ranolazine (Ranolazine ER), 500 MG PO BID Spironolactone (Aldactone), 25 MG PO DAILY Scheduled PRN Albuterol Sulfate (Albuterol Sulfate Hfa), 2 PUFF INH Q4HPRN PRN for dyspnea, (Reported) Ipratropium-Albuterol (Ipratropium [place]/Albut), 1 VIAL NEB Q6HPRN PRN for SHORTNESS OF BREATH, (Reported) Oxycodone W/ Acetaminophen (Percocet 5/325MG), 1 TAB PO QID PRN Polyethylene Glycol 3350 (Miralax), 17 GM PO DAILY PRN for FOR CONSTIPATION, (Reported) Discharge Statement: "Patient was advised to return to the ER or call 911 if any headaches, dizziness, shortness of breath, chest pain, abdominal pain, bleeding, fevers, or worsening of medical condition. Patient was counseled about treatment plan, medications, possible side effects, patientverbalized understanding. All questions were answered to the best of my ability. This discharge took greater then 30 minutes in planning, reviewing documentation, counseling the patient, and discussing with other team members." ASSESSMENT ASSESSMENT Assessment LEANNA BROWN DO Mar 26, 2025 00:53
== END 2025-03-23 20:10 | disposition home or self-care (01) | DRG 303 ==
LOC: EDBD 14:59 → ER 15:11 → OVERFLOW 21:14 → ER 21:14 → TELE-WESTW 03-18 14:51
PROVIDERS: ADMIT Internal Medicine; ATTEND Internal Medicine
PROC: 05H933Z Insertion of Infusion Device into Right Brachial Vein, Percutaneous Approach (ICD-10-PCS; principal; 2025-03-18)
PROC: B54MZZA Ultrasonography of Right Upper Extremity Veins, Guidance (ICD-10-PCS; 2025-03-18)
PROC: 4B02XTZ Measurement of Cardiac Defibrillator, External Approach (ICD-10-PCS; 2025-03-23)
DX: I25.10 Atherosclerotic heart disease of native coronary artery without angina pectoris (principal); I13.0 Hypertensive heart and chronic kidney disease with heart failure and stage 1 through stage 4 chronic kidney disease, or unspecified chronic kidney disease; I50.22 Chronic systolic (congestive) heart failure; N17.9 Acute kidney failure, unspecified; N30.00 Acute cystitis without hematuria; E78.5 Hyperlipidemia, unspecified; F32.A Depression, unspecified; F41.9 Anxiety disorder, unspecified; I25.5 Ischemic cardiomyopathy; I34.0 Nonrheumatic mitral (valve) insufficiency; N18.31 Chronic kidney disease, stage 3a; I25.2 Old myocardial infarction; J43.9 Emphysema, unspecified; K21.9 Gastro-esophageal reflux disease without esophagitis; I51.3 Intracardiac thrombosis, not elsewhere classified; M10.9 Gout, unspecified; J44.89 Other specified chronic obstructive pulmonary disease; Z66 Do not resuscitate; Z79.02 Long term (current) use of antithrombotics/antiplatelets; Z79.82 Long term (current) use of aspirin; Z82.3 Family history of stroke; Z79.899 Other long term (current) drug therapy; Z82.49 Family history of ischemic heart disease and other diseases of the circulatory system; Z83.3 Family history of diabetes mellitus; Z86.16 Personal history of COVID-19; Z86.73 Personal history of transient ischemic attack (TIA), and cerebral infarction without residual deficits; Z87.440 Personal history of urinary (tract) infections; Z87.442 Personal history of urinary calculi; Z87.891 Personal history of nicotine dependence; Z88.5 Allergy status to narcotic agent; Z90.49 Acquired absence of other specified parts of digestive tract; Z90.710 Acquired absence of both cervix and uterus; Z95.1 Presence of aortocoronary bypass graft; Z95.5 Presence of coronary angioplasty implant and graft; Z95.810 Presence of automatic (implantable) cardiac defibrillator; Z99.3 Dependence on wheelchair; Z88.1 Allergy status to other antibiotic agents
CPT/HCPCS: 36415; 71045; 80048; 81001; 83880; 84484; 85025; 87081; 87086; 93005; 97110; 97116; 97163; 97530; 99291; G0378; J1956; J2405

== ENCOUNTER 2025-03-30 16:03 | Outpatient (CLI) | payer OTHER, MEDICAID ==
[2025-03-30 16:36] LABS: Urine Protein, UAD Negative (Negative)
== END 2025-03-30 17:00 | disposition home or self-care (01) ==
LOC: LAB 16:03
PROVIDERS: ATTEND Internal Medicine
DX: N39.0 Urinary tract infection, site not specified (principal)
CPT/HCPCS: 81003; 87086

== ENCOUNTER 2025-04-04 13:59 | Emergency (ER) | payer OTHER, MEDICAID ==
[~2025-04-04] VITALS: Ht 162.6 cm; Wt 66.4 kg
--- NOTE | 2025-04-04 14:39 | ECG ---
[facility] Test Date: 2025-04-04 Test Time: 14:13:04 Pat Name: MONICA JAMES Department: [facility] ED Patient ID: [facility]-[id number] Room: Gender: F Strategic Marketing Specialist: edgard : 1945 Requested By: EMERGENCY EMERGENCY Order Number: [id number] Reading MD: Adair Mijares Measurements Intervals [place] Rate: 65 P: 0 ID: [id number] QRS: 198 QRSD: 147 T: 68 QT: 480 QTc: 500 Interpretive Statements Atrial-sensed ventricular-paced complexes No further analysis attempted due to paced rhythm Electronically Signed On 04-05-2025 10:59:07 PST by Adair Mijares Please click the below link to view image of tracing.
--- NOTE | 2025-04-04 14:56 | ED.PDOC ---
General HPI Comments 79 y.o female with extensive medical history, presents to the ED via EMS for a chief complaint of dysuria that started 2 weeks ago. Patient reports being diagnosed with a UTI by PCP, was suppose to be on antibiotics however PCP never sent the RX. Patient denies any hematuria, fever, chills, nausea, vomiting or abdominal pain. Additionally, she c/p of left hip pain radiating down to her ankle s/p hip replacement sx on 02/13/25. She is unsure who her surgeon is nor if she has a f/u coming soon. She states pain has increased over the past couple of days. No swelling or redness noted. 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 MEJIA Hydrocodone (Verified Allergy, Unknown, rash, 05/18/23) tylenol is okay per patient Home Meds Active Scripts Ciprofloxacin Hcl (Cipro) 500 Mg Tab, 1 TAB PO BID, #14 TAB Prov:CHUCK STEWART MD 04/04/25 Ciprofloxacin Hcl (Cipro) 250 Mg Tab, 250 MG PO BID for 5 Days, #10 TAB Prov:YENNY FRAIRE MD 02/09/25 Oxycodone W/ Acetaminophen (Percocet 5/325MG) 1 Tab Tb, 1 TAB PO QID PRN, #20 TAB Prov:YENNY FRAIRE MD 02/09/25 Levofloxacin Hemihydrate (LEVOFLOXACIN) 750 Mg Tab, 750 MG PO DAILY for 5 Days, #5 TAB Prov:PHILL LEAL RESDIENT 01/17/25 Oxycodone W/ Acetaminophen (Percocet 5/325MG) 1 Tab Tb, 1 TAB PO QID, #30 TAB Prov:JANE VEGA MD 09/29/24 Phenazopyridine HCl (Eq Urinary Pain Relief Ma) 99.5 Mg Tab, 99.5 MG PO TID for 10 Days, #30 TAB Prov:PHILL LEAL RESDIENT 09/23/24 Metoprolol Succinate (Metoprolol Succinate Er) 25 Mg Tab, 1 TAB PO DAILY for 30 Days, #30 TAB 5 Refills Prov:AXEL CARABALLO RESIDENT 09/06/24 Spironolactone (Aldactone) 25 Mg Tab, 25 MG PO DAILY for 30 Days, #30 TAB Prov:BHARAT MICHELLE RESIDENT 07/22/24 Oxybutynin Chloride (Oxybutynin Chloride) 5 Mg Tab, 5 MG PO Q8HR for 30 Days, #90 TAB Prov:BHARAT MICHELLE RESIDENT 07/22/24 Atorvastatin Calcium (ATORVASTATIN CALCIUM) 20 Mg Tab, 40 MG PO HS for 30 Days, #60 TAB Prov:BHARAT MICHELLE RESIDENT 07/22/24 Duloxetine Hydrochloride (Duloxetine Hydrochloride) 30 Mg Cap, 30 MG PO DAILY for 30 Days, #30 CAP Prov:WINSOME GOMEZ MD 04/29/24 Clopidogrel Bisulfate (CLOPIDOGREL) 75 Mg Tab, 75 MG PO DAILY for 30 Days, #30 TAB 5 Refills Prov:YENNY FRAIRE MD 11/26/23 Ranolazine (Ranolazine ER) 500 Mg Tab, 500 MG PO BID for 30 Days, #60 TAB 2 Refills Prov:MAGAN RUSS RESIDENT 09/16/23 Reported Medications Polyethylene Glycol 3350 (Miralax) 17 Gm Pow, 17 GM PO DAILY PRN for FOR CONSTIPATION for 30 Days, #30 01/28/24 Ipratropium-Albuterol (Ipratropium [place]/Albut) 1 [place], 1 VIAL NEB Q6HPRN PRN for SHORTNESS OF BREATH for 13 Days, #180 09/05/23 Fluticasone-Salmeterol (Fluticasone Propionate/SA 250-50 Mcg/Dose) 1 Aer Aer, 1 PUFF INH BID for 30 Days, #60 09/05/23 Albuterol Sulfate (Albuterol Sulfate Hfa) 108 Mcg/Act Aer, 2 PUFF INH Q4HPRN PRN for dyspnea for 17 Days, #18 09/05/23 Cholecalciferol (VITAMIN D3) 2,000 Unit Tab, 1 TAB PO BID for 30 Days, #60 08/28/23 Multiple Vitamin (Tab-A-Radha) Tab, 1 TAB PO DAILY for 30 Days, #30 08/28/23 Aspirin (Aspir-Low) 81 Mg Tab, 1 TAB PO DAILY for 30 Days, #30 08/28/23 Ascorbic Acid (VITAMIN C TABLET) 500 Mg Tb, 1 TAB PO BID for 30 Days, #60 05/18/23 Pantoprazole Sodium Sesquihydr (Pantoprazole Sodium) 40 Mg Tab, 1 TAB PO DAILY 05/18/23 Information Source: Patient Mode of Arrival: EMS Severity: Moderate Timing: Weeks (2) Duration: Since onset Onset: Spontaneous Symptoms: Dysuria History of: UTI Location: None Modifying factors: None associated signs and symptoms: Dysuria Past Medical History PAST MEDICAL HISTORY: Anemia, Anxiety, Asthma, CAD, CHF, CKF, COPD, CVA, Depression, GERD, Gout, High Lipids, HTN, Kidney Stones, PR, UTI'S Surgical History: Appendectomy, CABG, Hysterectomy, Pacemaker, PTCA, 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 Family History Family History: Reviewed,noncontributory to illness, Unknown Social History Smoker: Quit Greater Than 1 Year Alcohol: Denies ETOH Use Drugs: Denies Drug Use Lives In: Assisted Care Constitutional: denies: chills, diaphoresis, fatigue, fever, malaise, sweats, weakness, others EENTM: denies: blurred vision, double vision, ear bleeding, ear discharge, ear drainage, ear pain, ear ringing, eye pain, eye redness, hearing loss, mouth pain, mouth swelling, nasal discharge, nose bleeding, nose congestion, nose pain, photophobia, tearing, throat pain, throat swelling, voice changes, others Respiratory: denies: cough, hemoptysis, orthopnea, SOB at rest, shortness of breath, SOB with excertion, stridor, wheezing, others Cardiovascular: denies: chest pain, dizzy spells, diaphoresis, Dyspnea on exertion, edema, irregular heart beat, left arm pain, lightheadedness, pal pitations, PND, syncope, others Gastrointestinal: denies: abdomen distended, abdominal pain, blood streaked bowels, constipated, diarrhea, dysphagia, difficulty swallowing, hematemesis, melena, nausea, poor appetite, poor fluid intake, rectal bleeding, rectal pain, vomiting, others Genitourinary: reports: dysuria; denies: abnormal vagina bleeding, burning, dyspareunia, flank pain, frequency, hematuria, incontinence, pain, , vagina discharge, urgency, others Neurological: denies: dizziness, fainting, headache, left sided numbness, left sided weakness, numbness, paresthesia, pre-existing deficit, right sided numbness, right sided weakness, seizure, speech problems, tingling, tremors, weakness, others Musculoskeletal: reports: others; denies: back pain, gout, joint pain, joint swelling, muscle pain, muscle stiffness, neck pain Integumetry: denies: bruises, change in color, change in hair/nails, dryness, laceration, lesions, lumps, rash, wounds, others Allergic/Immunocompromised: denies: Difficulty Healing, Frequent Infections, Hives, Itching, others Hematologic/Lymphatic: denies: anemia, blood clots, easy bleeding, easy bruising, swollen glands, others Endocrine: denies: excessive hunger, excessive sweating, excessive thirst, excessive urination, flushing, intolerance to cold, intolerance to heat, unexplained weight gain, unexplained weight loss, others Psychiatric: denies: anxiety, bipolar disorder, depression, hopeless, panic disorder, schizophrenia, sleepless, suicidal, others All Other Systems: Reviewed and Negative Physical Exam General Appearance: No Apparent Distress HEENT: Normal ENT Inspection, Pharynx Normal, TMs Normal Neck: Full Range of Motion, Non-Tender, Normal, Normal Inspection Respiratory: Chest Non-Tender, Lungs Clear, No Accessory Muscle Use, No Respiratory Distress, Normal Breath Sounds Cardiovascular: No Edema, No JVD, No Murmur, No Gallop, Normal Peripheral Pu lses, Regular Rate/Rhythm Breast Exam: Deferred Gastrointestinal: No Organomegaly, No Pulsatile Mass, Normal Bowel Sounds, Soft, Suprapubic, Tenderness Genitalia: Deferred Pelvic: Deferred Rectal: Deferred Extremities: No calf tenderness, Normal capillary refill, Normal inspection, Normal range of motion, Non-tender, No pedal edema Musculoskeletal : Location: Left Extremity Location: Leg Apperance: Swelling, Tenderness: Mild Neurologic: Alert, director packaging II-XII nml as Tested, No Motor Deficits, Normal Affect, Normal Mood, No Sensory Deficits Cerebellar Function: Normal Reflexes: Normal Skin: Dry, Normal Color, Warm Lymphatic: No Adenopathy Was a procedure done? Was a procedure done?: No Differential Diagnosis Kidney stone (Female): N/A Urinary Problem (Female): PID, Urolithiasis, UTI, Vaginitis X-Ray, Labs, Meds, VS Vital Signs Date Time Temp Pulse Resp B/P (MAP) Pulse Ox O2 Delivery O2 Flow Rate FiO2 04/04/25 15:00 97.8 65 18 126/61 (82) 95 97.8 04/04/25 14:13 65 04/04/25 14:05 98.7 96 16 152/79 92 98.7 Clinical History: LEFT LOWER EXTREMITY pain Impression: 1. No left deep venous thrombosis. 2. If clinical concern/symptoms persist or worsen, short-interval follow-up study is suggested. The urine test is pending but the symptoms dictate that the patient will receive Cipro for UTI The patient will return to the emergency department's condition worsens. Images Reviewed?: Images reviewed and evaluated by me Time of 1ST Reevaluation: 14:52 Reevaluation 1ST: Unchanged Patient Education/Counseling: Diagnosis, Treatment, Prognosis, Need For Follow Up Family Education/Counseling: No Family Present SEPSIS Sepsis Screen Date sepsis recognized/suspect: Apr 04, 2025 Time Sepsis recognized/suspect: 1405 Recent Procedure: No On Antibiotic Therapy: No Respiratory Rate >20: No Heart Rate >90: No Temp<36 C (96.8 F) or >38.3 C: No SBP <90 or MAP <65 mmHG: No New Acute Mental Status Change: No Is the patient on CPAP, BIPAP,: No Physician Orders Urinalysis (04/04/25 14:50) Lt Lower Dvt (04/04/25 14:50) Vital Signs Date Time Temp Pulse Resp B/P (MAP) Pulse Ox O2 Delivery O2 Flow Rate FiO2 04/04/25 15:00 97.8 65 18 126/61 (82) 95 97.8 04/04/25 14:13 65 04/04/25 14:05 98.7 96 16 152/79 92 98.7 Departure 1 Departure Time of Disposition: 17:33 Impression: Primary Impression: Left leg pain Additional Impression: UTI (urinary tract infection) Qualified Codes: N30.00 - Acute cystitis without hematuria Disposition: 01 HOME / SELF CARE / HOMELESS Condition: Fair e-Prescriptions Ciprofloxacin Hcl (Cipro) 500 Mg Tab 1 TAB PO BID, #14 TAB Prov: CHUCK STEWART MD 04/04/25 Discharged With: Self Critical Care Note Critical Care Time?: No Stability Stability form required: No I personally scribed for CHUCK STEWART MD ([email or web address]) on 04/04/25 at 14:55. Electronically submitted by Elyse Perez ([facility]). I personally scribed for CHUCK STEWART MD ([email or web address]) on 04/04/25 at 17:10. Electronically submitted by Elyse Perez ([facility]). CHUCK STEWART MD Apr 04, 2025 14:55
[2025-04-04 15:00] VITALS: BP 126/61; PULSE 65; RESP 18; TEMP 97.8; O2SAT 95
--- NOTE | 2025-04-04 16:11 | DVH ---
Clinical History: LEFT LOWER EXTREMITY pain Comparison: US UPPER DVT on DOS: 09/25/23, US BILAT LOWER DVT on DOS: 09/15/23 Technique: Duplex Doppler evaluation of the deep venous system of the left lower extremity from the common femoral vein to the popliteal vein including color Doppler and spectral/pulsed waveform analysis was performed. Findings: The common femoral vein demonstrates appropriate compressibility and waveform variability. There is compressibility/patency of the great saphenous vein at the proximal thigh. The femoral vein demonstrates appropriate compressibility and waveform variability. The deep femoral vein demonstrates appropriate compressibility and waveform variability. The popliteal vein demonstrates appropriate compressibility and waveform variability. There is normal compressibility at the tibioperoneal trunk. Impression: 1. No left deep venous thrombosis. 2. If clinical concern/symptoms persist or worsen, short-interval follow-up study is suggested.
[2025-04-04] MEDS ORDERED: CIPR-173 PO (17:32)
== END 2025-04-04 22:41 | disposition home or self-care (01) ==
LOC: ER 13:59 → EDBD 13:59 → ER 22:37
DX: N39.0 Urinary tract infection, site not specified (principal); M25.552 Pain in left hip; I13.0 Hypertensive heart and chronic kidney disease with heart failure and stage 1 through stage 4 chronic kidney disease, or unspecified chronic kidney disease; N18.9 Chronic kidney disease, unspecified; I50.9 Heart failure, unspecified; F41.9 Anxiety disorder, unspecified; F32.A Depression, unspecified; E78.5 Hyperlipidemia, unspecified; I25.10 Atherosclerotic heart disease of native coronary artery without angina pectoris; I82.409 Acute embolism and thrombosis of unspecified deep veins of unspecified lower extremity; J44.89 Other specified chronic obstructive pulmonary disease; M10.9 Gout, unspecified; Z79.899 Other long term (current) drug therapy; Z87.891 Personal history of nicotine dependence; Z86.718 Personal history of other venous thrombosis and embolism; Z79.82 Long term (current) use of aspirin; Z79.51 Long term (current) use of inhaled steroids; Z79.02 Long term (current) use of antithrombotics/antiplatelets; Z88.1 Allergy status to other antibiotic agents; Z87.442 Personal history of urinary calculi; Z87.440 Personal history of urinary (tract) infections; Z86.73 Personal history of transient ischemic attack (TIA), and cerebral infarction without residual deficits; Z90.710 Acquired absence of both cervix and uterus; Z88.6 Allergy status to analgesic agent; Z95.1 Presence of aortocoronary bypass graft; Z95.0 Presence of cardiac pacemaker; Z96.649 Presence of unspecified artificial hip joint; Z88.5 Allergy status to narcotic agent; Z90.49 Acquired absence of other specified parts of digestive tract
CPT/HCPCS: 93005; 93971

== ENCOUNTER 2025-04-12 13:49 | Inpatient (IN) | payer MEDICARE, MEDICAID ==
[~2025-04-12] VITALS: Ht 175.3 cm; Wt 71.7 kg
[2025-04-12 01:00] VITALS: BP 121/71; PULSE 53; RESP 14; TEMP 98.1; O2SAT 97
[~2025-04-12 13:49] MED LIST changes: +CIPR-173 PO
[2025-04-12 13:58] VITALS: PULSE 66; RESP 12; O2SAT 98
--- NOTE | 2025-04-12 14:05 | ED.PDOC ---
HPI Comments 79 year old female with PMHx of anemia, anxiety, asthma, CAD, CHF, CKF, COPD, CVA, depression, GERD, Gout, HLD, HTN, KS, pacemaker, cardiac stents presents to the ED via EMS with a chief complaint of chest pain onset 3 days. Per EMS, patient had an KS about 3 months ago, had cardiac stents placed at [facility] by Dr. Tidwell. Patient's last discharge from [facility] was on 03/26/25, has been admitted several times due to chest pain. Patient states she has been experiencing substernal chest pain, worsens with palpation, currently rates pain 8/10. In route to ED, EMS was concerned for possible STEMI due to EKG results, upon ED arrival, EKG was done, no STEMI. Denies shortness of breath, nausea, vomiting, diarrhea, headache, dizziness, fever, chills, cough, cold, congestion, numbness/tingling. No other symptoms or modifying factors present at this time. Chief Complaint: Chest Pain Time Seen by MD: 13:55 Primary Care Provider: HORTENCIA Reviewed Notes: Medications, Allergies Allergies: Coded Allergies: Ceftriaxone (Verified Allergy, Intermediate, generalized rash, 11/08/22) [employer] Hydrocodone (Verified Allergy, Unknown, rash, 05/18/23) tylenol is okay per patient Home Meds Active Scripts Ciprofloxacin Hcl (Cipro) 500 Mg Tab, 1 TAB PO BID, #14 TAB Prov:CHUCK STEWART MD 04/04/25 Ciprofloxacin Hcl (Cipro) 250 Mg Tab, 250 MG PO BID for 5 Days, #10 TAB Prov:YENNY FRAIRE MD 02/09/25 Oxycodone W/ Acetaminophen (Percocet 5/325MG) 1 Tab Tb, 1 TAB PO QID PRN, #20 TAB Prov:YENNY FRAIRE MD 02/09/25 Levofloxacin Hemihydrate (LEVOFLOXACIN) 750 Mg Tab, 750 MG PO DAILY for 5 Days, #5 TAB Prov:PHILL LEAL 01/17/25 Oxycodone W/ Acetaminophen (Percocet 5/325MG) 1 Tab Tb, 1 TAB PO QID, #30 TAB Prov:JANE VEGA MD 09/29/24 Phenazopyridine HCl (Eq Urinary Pain Relief Ma) 99.5 Mg Tab, 99.5 MG PO TID for 10 Days, #30 TAB Prov:ADAMARISMARADAMARIS ALCANTARAEdu RESDIENT 09/23/24 Metoprolol Succinate (Metoprolol Succinate Er) 25 Mg Tab, 1 TAB PO DAILY for 30 Days, #30 TAB 5 Refills Prov:AXEL CARABALLO RESIDENT 09/06/24 Spironolactone (Aldactone) 25 Mg Tab, 25 MG PO DAILY for 30 Days, #30 TAB Prov:BHARAT MICHELLE RESIDENT 07/22/24 Oxybutynin Chloride (Oxybutynin Chloride) 5 Mg Tab, 5 MG PO Q8HR for 30 Days, #90 TAB Prov:BHARAT MICHELLE RESIDENT 07/22/24 Atorvastatin Calcium (ATORVASTATIN CALCIUM) 20 Mg Tab, 40 MG PO HS for 30 Days, #60 TAB Prov:BHARAT MICHELLE RESIDENT 07/22/24 Duloxetine Hydrochloride (Duloxetine Hydrochloride) 30 Mg Cap, 30 MG PO DAILY for 30 Days, #30 CAP Prov:WINSOME GOMEZ MD 04/29/24 Clopidogrel Bisulfate (CLOPIDOGREL) 75 Mg Tab, 75 MG PO DAILY for 30 Days, #30 TAB 5 Refills Prov:YENNY FRAIRE MD 11/26/23 Ranolazine (Ranolazine ER) 500 Mg Tab, 500 MG PO BID for 30 Days, #60 TAB 2 Refills Prov:RUSSMAGAN RESIDENT 09/16/23 Reported Medications Polyethylene Glycol 3350 (Miralax) 17 Gm Pow, 17 GM PO DAILY PRN for FOR CONSTIPATION for 30 Days, #30 01/28/24 Ipratropium-Albuterol (Ipratropium [place]/Albut) 1 Yuli Yuli, 1 VIAL NEB Q6HPRN PRN for SHORTNESS OF BREATH for 13 Days, #180 09/05/23 Fluticasone-Salmeterol (Fluticasone Propionate/SA 250-50 Mcg/Dose) 1 Aer Aer, 1 PUFF INH BID for 30 Days, #60 09/05/23 Albuterol Sulfate (Albuterol Sulfate Hfa) 108 Mcg/Act Aer, 2 PUFF INH Q4HPRN PRN for dyspnea for 17 Days, #18 09/05/23 Cholecalciferol (VITAMIN D3) 2,000 Unit Tab, 1 TAB PO BID for 30 Days, #60 08/28/23 Multiple Vitamin (Tab-A-Radha) Tab, 1 TAB PO DAILY for 30 Days, #30 08/28/23 Aspirin (Aspir-Low) 81 Mg Tab, 1 TAB PO DAILY for 30 Days, #30 08/28/23 Ascorbic Acid (VITAMIN C TABLET) 500 Mg Tb, 1 TAB PO BID for 30 Days, #60 05/18/23 Pantoprazole Sodium Sesquihydr (Pantoprazole Sodium) 40 Mg Tab, 1 TAB PO DAILY 05/18/23 Information Source: Patient, Emergency Med Personnel Mode of Arrival: EMS Severity: Moderate Timing: Days Duration: Since onset Prehospital treatment: 12 Lead EKG Location: Substernal Radiation: No Radiation Quality: Pressure Onset: At Rest Cardiac Risk Factors: Hyperlipidemia, HTN, Diabetes PE Risk Factors: Recent Surgery History of: Similar pain in past, KS Modifying Factors: Nothing Past Medical History PAST MEDICAL HISTORY: Anemia, Anxiety, Asthma, CAD, CHF, CKF, COPD, CVA, Depression, GERD, Gout, High Lipids, HTN, Kidney Stones, KS, UTI'S Surgical History: Appendectomy, CABG, Hysterectomy, Pacemaker, PTCA, 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 [employer] History: Ovarian Cysts Family History Family History: Reviewed,noncontributory to illness, Unknown Social History Smoker: Quit Greater Than 1 Year Alcohol: Denies ETOH Use Drugs: Denies Drug Use Lives In: Assisted Care Constitutional: denies: chills, diaphoresis, fatigue, fever, malaise, sweats, weakness, others EENTM: denies: blurred vision, double vision, ear bleeding, ear discharge, ear drainage, ear pain, ear ringing, eye pain, eye redness, hearing loss, mouth pain, mouth swelling, nasal discharge, nose bleeding, nose congestion, nose pain, photophobia, tearing, throat pain, throat swelling, voice changes, others Respiratory: denies: cough, hemoptysis, orthopnea, SOB at rest, shortness of breath, SOB with excertion, stridor, wheezing, others Cardiovascular: reports: chest pain; denies: dizzy spells, diaphoresis, Dyspnea on exertion, edema, irregular heart beat, left arm pain, lightheadedness, palpitations, PND, syncope, others Gastrointestinal: denies: abdomen distended, abdominal pain, blood streaked bowels, constipated, diarrhea, dysphagia, difficulty swallowing, hematemesis, melena, nausea, poor appetite, poor fluid intake, rectal bleeding, rectal pain, vomiting, others Genitourinary: denies: abnormal vagina bleeding, burning, dyspareunia, dysuria, flank pain, frequency, hematuria, incontinence, pain, , vagina discharge, urgency, others Neurological: denies: dizziness, fainting, headache, left sided numbness, left sided weakness, numbness, paresthesia, pre-existing deficit, right sided numbness, right sided weakness, seizure, speech problems, tingling, tremors, weakness, others Musculoskeletal: denies: back pain, gout, joint pain, joint swelling, muscle pain, muscle stiffness, neck pain, others Integumetry: denies: bruises, change in color, change in hair/nails, dryness, laceration, lesions, lumps, rash, wounds, others Allergic/Immunocompromised: denies: Difficulty Healing, Frequent Infections, Hives, Itching, others Hematologic/Lymphatic: denies: anemia, blood clots, easy bleeding, easy bruising, swollen glands, others Endocrine: denies: excessive hunger, excessive sweating, excessive thirst, excessive urination, flushing, intolerance to cold, intolerance to heat, unexplained weight gain, unexplained weight loss, others Psychiatric: denies: anxiety, bipolar disorder, depression, hopeless, panic disorder, schizophrenia, sleepless, suicidal, others All Other Systems: Reviewed and Negative Physical Exam General Appearance: Normal HEENT: Normal ENT Inspection, Pharynx Normal, TMs Normal Neck: Full Range of Motion, Non-Tender, Normal, Normal Inspection Respiratory: Chest Non-Tender, Lungs Clear, No Accessory Muscle Use, No Respiratory Distress, Normal Breath Sounds Cardiovascular: No Edema, No JVD, No Murmur, No Gallop, Normal Peripheral Pulses, Regular Rate/Rhythm Breast Exam: Deferred Gastrointestinal: No Organomegaly, Non Tender, No Pulsatile Mass, Normal Bowel Sounds, Soft Genitalia: Deferred Pelvic: Deferred Rectal: Deferred Extremities: No calf tenderness, Normal capillary refill, Normal inspection, Normal range of motion, Non-tender, No pedal edema Musculoskeletal : Apperance: Normal Neurologic: Alert, addiction specialist II-XII nml as Tested, No Motor Deficits, Normal Affect, Normal Mood, No Sensory Deficits Cerebellar Function: Normal Reflexes: Normal Skin: Dry, Normal Color, Warm Lymphatic: No Adenopathy Was a procedure done? Was a procedure done?: No CP Differential Dx Differential Diagnosis: Hypoxia, MAT, KS Differential Diagnosis: Medical NonCompliance, Induced Differential Diagnosis: Gastritis, Myocardial Infarction, Pericarditis X-Ray, Labs, Meds, VS Vital Signs Date Time Temp Pulse Resp B/P (MAP) Pulse Ox O2 Delivery O2 Flow Rate FiO2 04/12/25 15:02 67 17 126/68 04/12/25 14:46 64 04/12/25 14:20 62 04/12/25 14:11 98.4 64 12 137/75 (95) 97 98.4 04/12/25 13:58 66 12 98 Nasal Cannula* 2 28 04/12/25 13:49 98.9 69 16 149/79 100 98.9 04/12/25 13:49 76 Lab Test 04/12/25 14:19 Range/Units White Blood Count 7.3 4.4-10.8 10^3/uL Red Blood Count 4.47 4.0-5.20 10^6/uL Hemoglobin 13.6 12.2-16.2 g/dL Hematocrit 40.5 36.0-46.0 % Mean Corpuscular Volume 90.5 80.0-100.0 fL Mean Corpuscular Hemoglobin 30.3 28.0-32.0 pg Mean Corpuscular Hemoglobin Concent 33.5 32.0-36.0 g/dL Red Cell Distribution Width 16.6 H 11.8-14.3 % Platelet Count 234 140-450 10^3/uL Mean Platelet Volume 7.8 6.9-10.8 fL Neutrophils (%) (Auto) 62.7 37.0-80.0 % Lymphocytes (%) (Auto) 23.4 10.0-50.0 % Monocytes (%) (Auto) 10.5 0.0-12.0 % Eosinophils (%) (Auto) 2.8 0.0-7.0 % Basophils (%) (Auto) 0.6 0.0-2.0 % Neutrophils # (Auto) 4.6 1.6-8.6 10 ^3/uL Lymphocytes # (Auto) 1.7 0.4-5.4 10 ^3/uL Monocytes # (Auto) 0.8 0-1.3 10 ^3/uL Eosinophils # (Auto) 0.2 0-0.8 10 ^3/uL Basophils # (Auto) 0 0-0.2 10 ^3/uL Nucleated Red Blood Cells 0.0 % Sodium Level 143 136-145 mmol/L Potassium Level 4.0 3.5-5.1 mmol/L Chloride Level 112 H 98-107 mmol/L Carbon Dioxide Level 24 20-31 mmol/L Anion Gap 7 5-15 Blood Urea Nitrogen 12 9-23 mg/dL Creatinine 0.83 0.550-1.02 mg/dL Glomerular Filtration Rate Calc 71 >90 mL/min BUN/Creatinine Ratio 14.5 10.0-20.0 Serum Glucose 94 74-106 mg/dL Calcium Level 9.1 8.7-10.4 mg/dL Troponin I High Sensitivity 29 </=34 ng/L B-Type Natriuretic Peptide 1107.06 0-100 pg/mL Current Medications Medications (Trade) Dose Ordered Sig/Asha Route Start Time Stop Time Status Last Admin Morphine Sulfate 4 mg ONCE ONCE IV 04/12/25 14:45 04/12/25 14:46 DC 04/12/25 15:02 Ondansetron HCl (Zofran) 4 mg ONCE ONCE IV 04/12/25 14:45 04/12/25 14:46 DC 04/12/25 15:02 Time of 1ST Reevaluation: 14:25 Reevaluation 1ST: Unchanged Patient Education/Counseling: Diagnosis, Treatment, Prognosis Family Education/Counseling: No Family Present SEPSIS Sepsis Screen Physician Orders Chest Portable (04/12/25 13:59) Troponin-I Hs (04/12/25 14:55) Troponin-I Hs (04/12/25 16:55) Electrocardigram (04/12/25 14:55) Electrocardigram (04/12/25 16:55) Vital Signs Date Time Temp Pulse Resp B/P (MAP) Pulse Ox O2 Delivery O2 Flow Rate FiO2 04/12/25 15:02 67 17 126/68 04/12/25 14:46 64 04/12/25 14:20 62 04/12/25 14:11 98.4 64 12 137/75 (95) 97 98.4 04/12/25 13:58 66 12 98 Nasal Cannula* 2 28 04/12/25 13:49 98.9 69 16 149/79 100 98.9 04/12/25 13:49 76 Laboratory Tests Test 04/12/25 14:19 White Blood Count 7.3 10^3/uL (4.4-10.8) Medications Medications Dose Ordered Sig/Asha Route Start Time Stop Time Status Last Admin Dose Admin Morphine Sulfate 4 mg ONCE ONCE IV 04/12/25 14:45 04/12/25 14:46 DC 04/12/25 15:02 Ondansetron HCl 4 mg ONCE ONCE IV 04/12/25 14:45 04/12/25 14:46 DC 04/12/25 15:02 Departure 1 Departure Time of Disposition: 15:19 (? High Complexity ProblemsAcute illness posing threat to life or bodily function (suspected ACS)? High Complexity DataMultiple unique labsIndependent interpretation of X-ray and EKGDiscussion/coordination of care with admitting team? High Risk of Morbidity/MortalityDecision regarding hospitalizationCritical care performedPotential for sudden deteriorationMEDICAL DECISION MAKING (HIGH COMPLEXITY LEVEL 5):The patient presents with acute chest pain highly concerning for acute coronary syndrome (ACS), an acute illness with potential for significant morbidity and mortality. Despite a normal initial diagnostic workup, ACSincluding unstable anginacannot be excluded and remains the leading concern.Data Reviewed / Independent Interpretation:I independently reviewed and interpreted all labs and imaging. CBC and BMP were within normal l imits. High-sensitivity troponin was normal, but a single normal value does not exclude ACS. Chest X-ray was independently reviewed by me and demonstrated no acute cardiopulmonary abnormalities. I independently reviewed the EKG, which showed normal sinus rhythm without ischemic changes.Despite these benign findings, the patient continues to describe exertional and pressure-like chest pain radiating in a pattern consistent with possible ACS. Unstable angina may present with normal biomarkers and nondiagnostic EKGs, and therefore this diagnosis remains a high-risk, active consideration.Differential Diagnosis & Management:The differential included ACS/unstable angina, pulmonary embolism, aortic dissection, pneumothorax, arrhythmia, and esophageal or musculoskeletal etiologies. Given the symptom pattern and cardiac risk profile, ACS remains the most concerning and cannot be safely ruled out in the ED. Serial troponins, telemetry monitoring, and further cardiac evaluationincluding possible stress testing or cardiology consultationare medically necessary.Risk / Disposition:Due to the ongoing concern for evolving cardiac ischemia, the inab ility to exclude ACS at this stage, and the potential for rapid deterioration, I determined that inpatient admission is required for continued monitoring and further diagnostic evaluation. I discussed the case and plan of care with the admitting inpatient team. The patient understands and agrees with admission.CRITICAL CARE TIME: 38 MINUTESA total of 38 minutes of critical care time was provided, exclusive of separately billable procedures. Time was spent in high-intensity evaluation and management due to the risk of sudden clinical deterioration from suspected ACS. Activities included:Continuous cardiac monitoringSerial reassessment of vital signs and symptomsIndependent interpretation of EKG and imagingReview and integration of diagnostic dataCoordination of care and discussion with nursing and the admitting serviceDevelopment of treatment and monitoring planFrequent bedside reasse ssmentsCritical care services were medically necessary due to the immediate potential for life-threatening cardiac ischemia.) Impression: Primary Impression: Acute chest pain Additional Impression: Acute on chronic systolic (congestive) heart failure Disposition: ADMITTED INPATIENT Admit to: Tele Condition: Guarded Critical Care Note Critical Care Time?: Yes Stability Stability form required: No Heart Score Heart Score: Heart Score Response (Comments) Value History N/A 0 EKG N/A 0 Age N/A 0 Risk Factors N/A 0 Troponin N/A 0 Total 0 I personally scribed for BRANDO SANCHEZ MD ([email or web address]) on 04/12/25 at 14:05. Electronically submitted by Makenzie Mclean ([email or web address]). BRANDO SANCHEZ MD Apr 12, 2025 14:05
--- NOTE | 2025-04-12 14:23 | DVH ---
INDICATION: cp TECHNIQUE: Frontal view of the chest. COMPARISON: XY CHEST PORTABLE on DOS: 03/17/25, XY CHEST XRAY 1 VIEW on DOS: 02/13/25, XY CHEST XRAY 1 VIEW on DOS: 02/05/25, XY CHEST PORTABLE on DOS: 01/14/25, XY CHEST PORTABLE on DOS: 01/08/25 FINDINGS: Left-sided pacemaker.. The heart and mediastinal contours are grossly unremarkable. There is no evidence of pleural disease. The lungs are clear. The bony structures of the chest are intact without fracture. IMPRESSION: 1. No evidence of acute disease.
[2025-04-12 14:30] LABS: Hematocrit 40.5 % (36.0-46.0); Hemoglobin 13.6 g/dL (12.2-16.2); Mean Corpuscular Hemoglobin 30.3 pg (28.0-32.0); Mean Corpuscular Volume 90.5 fL (80.0-100.0); Nucleated Red Blood Cells % 0.0 %
[2025-04-12 14:36] LABS: Potassium 4.0 mmol/L (3.5-5.1); Sodium 143 mmol/L (136-145)
[2025-04-12 14:37] LABS: Anion Gap 7 (5-15); Carbon Dioxide 24 mmol/L (20-31)
[2025-04-12 14:38] LABS: Calcium 9.1 mg/dL (8.7-10.4)
[2025-04-12 14:39] LABS: Chloride 112 mmol/L (98-107)
[2025-04-12 14:42] LABS: BUN/Creatinine Ratio 14.5 (10.0-20.0); Blood Urea Nitrogen 12 mg/dL (9-23); Glucose 94 mg/dL (74-106)
--- NOTE | 2025-04-12 14:47 | ECG ---
[facility] Test Date: 2025-04-12 Test Time: 14:46:11 Pat Name: MONICA JAMES Department: ED Room: 0233 Gender: F Analytics Leader: gp : 1945 Requested By: BRANDO SANCHEZ Order Number: [id number] Reading MD: Adair Mijares Measurements Intervals [place] Rate: 64 P: 202 OR: 194 QRS: -57 QRSD: 136 T: 72 QT: 473 QTc: 488 Interpretive Statements Atrial-sensed ventricular-paced rhythm No further analysis attempted due to paced rhythm Electronically Signed On 04-13-2025 17:58:40 PST by Adair Mijares Please click the below link to view image of tracing.
[2025-04-12] MEDS: MORPHINE SULFATE 4 MG/ML SYR/VIAL IV ONE (15:02)
[2025-04-12] MEDS: ONDANSETRON HCL 4 MG/2 ML VIAL IV ONE (15:02)
--- NOTE | 2025-04-12 17:09 | ECG ---
[facility] Test Date: 2025-04-12 Test Time: 13:49:31 Pat Name: MONICA JAMES Department: ED Room: 0233 Gender: F Granular Operator: gp : 1945 Requested By: BRANDO SANCHEZ Order Number: [id number] Reading MD: Adair Mijares Measurements Intervals [place] Rate: 76 P: 0 DC: 160 QRS: 248 QRSD: 163 T: 102 QT: 476 QTc: 536 Interpretive Statements Atrial-sensed ventricular-paced complexes No further analysis attempted due to paced rhythm Electronically Signed On 04-13-2025 17:58:27 PST by Adair Mijares Please click the below link to view image of tracing.
--- NOTE | 2025-04-12 17:14 | ECG ---
[facility] Test Date: 2025-04-12 Test Time: 16:54:10 Pat Name: MONICA JAMES Department: ED Room: 0233 Gender: F Lactation Consultant: adrian : 1945 Requested By: BRANDO SANCHEZ Order Number: [id number] Reading MD: Adair Mijares Measurements Intervals [place] Rate: 63 P: 186 [place]: 197 QRS: 257 QRSD: 133 T: 110 QT: 477 QTc: 489 Interpretive Statements Atrial-sensed ventricular-paced complexes No further analysis attempted due to paced rhythm Electronically Signed On 04-13-2025 17:58:49 PST by Adair Mijares Please click the below link to view image of tracing.
[2025-04-12 19:00] VITALS: PULSE 61; RESP 11; O2SAT 98
[2025-04-12] MEDS ORDERED: NITROGLYCERIN 0.4 MG SL TAB SL PRN (20:15)
[2025-04-12] MEDS ORDERED: MORPHINE SULFATE INJ 2 MG/ml SYRG IV PRN (20:15)
[2025-04-12] MEDS ORDERED: HYDROcodone-ACET 5/325MG TAB PO PRN (20:15)
--- NOTE | 2025-04-12 20:17 | DVHHP2 ---
History of Present Illness HPI 79 year old female with PMHx of anemia, anxiety, asthma, CAD, CHF, CKF, COPD, CVA, depression, GERD, Gout, HLD, HTN, MS, pacemaker, cardiac stents presents to the ED via EMS with a chief complaint of chest pain onset 3 days. Per EMS, patient had an MS about 3 months ago, had cardiac stents placed at [facility] by Dr. Tidwell. Patient's last discharge from [facility] was on 03/26/25, has been admitted several times due to chest pain. Patient states she has been experiencing substernal chest pain, worsens with palpation, currently rates pain 8/10. In route to ED, EMS was concerned for possible STEMI due to EKG results, upon ED arrival, EKG was done, no STEMI. Denies shortness of breath, nausea, vomiting, diarrhea, headache, dizziness, fever, chills, cough, cold, congestion, numbness/tingling. No other symptoms or modifying factors present at this time. Home Meds Active Scripts Ciprofloxacin Hcl (Cipro) 500 Mg Tab, 1 TAB PO BID, #14 TAB Prov:CHUCK STEWART MD 04/04/25 Ciprofloxacin Hcl (Cipro) 250 Mg Tab, 250 MG PO BID for 5 Days, #10 TAB Prov:YENNY FRAIRE MD 02/09/25 Oxycodone W/ Acetaminophen (Percocet 5/325MG) 1 Tab Tb, 1 TAB PO QID PRN, #20 TA B Prov:YENNY FRAIRE MD 02/09/25 Levofloxacin Hemihydrate (LEVOFLOXACIN) 750 Mg Tab, 750 MG PO DAILY for 5 Days, #5 TAB Prov:PHILL LEAL RESDIENT 01/17/25 Oxycodone W/ Acetaminophen (Percocet 5/325MG) 1 Tab Tb, 1 TAB PO QID, #30 TAB Prov:JANE VEGA MD 09/29/24 Phenazopyridine HCl (Eq Urinary Pain Relief Ma) 99.5 Mg Tab, 99.5 MG PO TID for 10 Days, #30 TAB Prov:PHILL LEAL RESDIENT 09/23/24 Metoprolol Succinate (Metoprolol Succinate Er) 25 Mg Tab, 1 TAB PO DAILY for 30 Days, #30 TAB 5 Refills Prov:AXEL CARABALLO 09/06/24 Spironolactone (Aldactone) 25 Mg Tab, 25 MG PO DAILY for 30 Days, #30 TAB Prov:BHARAT MICHELLE RESIDENT 07/22/24 Oxybutynin Chloride (Oxybutynin Chloride) 5 Mg Tab, 5 MG PO Q8HR for 30 Days, #90 TAB Prov:BHARAT MICHELLE RESIDENT 07/22/24 Atorvastatin Calcium (ATORVASTATIN CALCIUM) 20 Mg Tab, 40 MG PO HS for 30 Days, #60 TAB Prov:BHARAT MICHELLE RESIDENT 07/22/24 Duloxetine Hydrochloride (Duloxetine Hydrochloride) 30 Mg Cap, 30 MG PO DAILY for 30 Days, #30 CAP Prov:WINSOME GOMEZ MD 04/29/24 Clopidogrel Bisulfate (CLOPIDOGREL) 75 Mg Tab, 75 MG PO DAILY for 30 Days, #30 TAB 5 Refills Prov:YENNY FRAIRE MD 11/26/23 Ranolazine (Ranolazine ER) 500 Mg Tab, 500 MG PO BID for 30 Days, #60 TAB 2 Refills Prov:MAGAN RUSS RESIDENT 09/16/23 Reported Medications Polyethylene Glycol 3350 (Miralax) 17 Gm Pow, 17 GM PO DAILY PRN for FOR CONSTIPATION for 30 Days, #30 01/28/24 Ipratropium-Albuterol (Ipratropium [place]ansen/Albut) 1 Yuli Yuli, 1 VIAL NEB Q6HPRN PRN for SHORTNESS OF BREATH for 13 Days, #180 09/05/23 Fluticasone-Salmeterol (Fluticasone Propionate/SA 250-50 Mcg/Dose) 1 Aer Aer, 1 PUFF INH BID for 30 Days, #60 09/05/23 Albuterol Sulfate (Albuterol Sulfate Hfa) 108 Mcg/Act Aer, 2 PUFF INH Q4HPRN PRN for dyspnea for 17 Days, #18 09/05/23 Cholecalciferol (VITAMIN D3) 2,000 Unit Tab, 1 TAB PO BID for 30 Days, #60 08/28/23 Multiple Vitamin (Tab-A-Radha) Tab, 1 TAB PO DAILY for 30 Days, #30 08/28/23 Aspirin (Aspir-Low) 81 Mg Tab, 1 TAB PO DAILY for 30 Days, #30 4/3/24 Ascorbic Acid (VITAMIN C TABLET) 500 Mg Tb, 1 TAB PO BID for 30 Days, #60 05/18/23 Pantoprazole Sodium Sesquihydr (Pantoprazole Sodium) 40 Mg Tab, 1 TAB PO DAILY 05/18/23 Past Medical History Patient Family History: Arthritis Cardiovascular disease G8 MOTHER, Onset:Unknown Cerebrovascular accident (CVA) G8 FATHER Coronary artery disease G8 MOTHER, Onset:Unknown FH: diabetes mellitus G8 MOTHER, Onset:Unknown FH: heart disease G8 MOTHER, Onset:Unknown FH: hypertension G8 MOTHER, Onset:Unknown FH: lupus 19 CHILD FH: myocardial infarction G8 MOTHER, Onset:Unknown Family history: Cardiovascular disease G8 MOTHER, Onset:Unknown G8 FATHER, Onset:Unknown Glaucoma G8 MOTHER, Onset:Unknown Review of Systems Constitutional: No symptom reported Ears, Nose, & Throat: No symptom reported Eyes: No symptom reported Cardiovascular: Chest Pain Gastrointestinal: No symptom reported Genitourinary: No symptom reported Musculoskeletal: No symptom reported H&P Exam Vital Signs Vital Signs Date Time Temp Pulse Resp B/P (MAP) Pulse Ox O2 Delivery O2 Flow Rate FiO2 04/12/25 18:22 59 18 117/49 (71) 96 04/12/25 14:11 98.4 98.4 04/12/25 13:58 Nasal Cannula* 2 28 General Appeara: Well developed, Well nourished Nasal Exam: Normal inspection Mouth: Normal Inspection Pulmonary/Respiratory: Normal inspection Cardiovascular/Chest: Normal inspection SEPSIS Sepsis Screen Date sepsis recognized/suspect: Apr 12, 2025 Time Sepsis recognized/suspect: 1349 Recent Procedure: No On Antibiotic Therapy: No Respiratory Rate >20: No Heart Rate >90: No Temp<36 C (96.8 F) or >38.3 C: No SBP <90 or MAP <65 mmHG: No New Acute Mental Status Change: No Is the patient on CPAP, BIPAP,: No Physician Orders Chest Portable (04/12/25 13:59) Admit (04/12/25 20:14) Code Status (04/12/25 20:14) 2 Gm Sodium Diet (04/13/25 Breakfast) Hydrocodone-Acet 5/325mg Tab (Finley 5/32 (04/12/25 20:15) Ondansetron Hcl (Zofran) (04/12/25 20:15) Enoxaparin Sodium (Lovenox) (04/13/25 10:00) Complete Blood Count (04/13/25 04:00) Comprehensive Metabolic Panel (04/13/25 04:00) Condition: Serious (04/12/25 20:14) Acetaminophen Tablet (Tylenol Tablet) (04/12/25 20:15) Morphine Sulfate Injection (04/12/25 20:15) Nitroglycerin Sublingual (Ntrostat Subli (04/12/25 20:15) Morphine Sulfate Injection (04/12/25 20:15) Stat Ekg For Chest Pain (04/12/25 20:14) Notify Md Of Changes From Base (04/12/25 20:14) C.O.D. Audit Clerk For 24 Hours (04/12/25 20:14) Emergency Dysrhythmia Protocol (04/12/25 20:14) Rhythm Strips Once Every Shift (04/12/25 20:14) Oxygen By Nasal Cannula (04/12/25 20:14) Vital Signs Date Time Temp Pulse Resp B/P (MAP) Pulse Ox O2 Delivery O2 Flow Rate FiO2 04/12/25 18:22 59 18 117/49 (71) 96 04/12/25 18:09 60 04/12/25 16:54 63 04/12/25 16:22 61 13 122/56 (78) 96 04/12/25 16:18 63 13 122/56 04/12/25 15:02 67 17 126/68 04/12/25 14:46 64 04/12/25 14:20 62 04/12/25 14:11 98.4 64 12 137/75 (95) 97 98.4 04/12/25 13:58 66 12 98 Nasal Cannula* 2 28 04/12/25 13:49 98.9 69 16 149/79 100 98.9 04/12/25 13:49 76 Laboratory Tests Test 04/12/25 14:19 White Blood Count 7.3 10^3/uL (4.4-10.8) Medications Medications Dose Ordered Sig/Asha Route Start Time Stop Time Status Last Admin Dose Admin Morphine Sulfate 4 mg ONCE ONCE IV 04/12/25 14:45 04/12/25 14:46 DC 04/12/25 15:02 4 MG Ondansetron HCl 4 mg ONCE ONCE IV 04/12/25 14:45 04/12/25 14:46 DC 04/12/25 15:02 4 MG Labs/Xrays Labs Test 04/12/25 17:05 04/12/25 14:19 Range/Units Troponin I High Sensitivity 28 </=34 ng/L White Blood Count 7.3 4.4-10.8 10^3/uL Red Blood Count 4.47 4.0-5.20 10^6/uL Hemoglobin 13.6 12.2-16.2 g/dL Hematocrit 40.5 36.0-46.0 % Mean Corpuscular Volume 90.5 80.0-100.0 fL Mean Corpuscular Hemoglobin 30.3 28.0-32.0 pg Mean Corpuscular Hemoglobin Concent 33.5 32.0-36.0 g/dL Red Cell Distribution Width 16.6 H 11.8-14.3 % Platelet Count 234 140-450 10^3/uL Mean Platelet Volume 7.8 6.9-10.8 fL Neutrophils (%) (Auto) 62.7 37.0-80.0 % Lymphocytes (%) (Auto) 23.4 10.0-50.0 % Monocytes (%) (Auto) 10.5 0.0-12.0 % Eosinophils (%) (Auto) 2.8 0.0-7.0 % Basophils (%) (Auto) 0.6 0.0-2.0 % Neutrophils # (Auto) 4.6 1.6-8.6 10 ^3/uL Lymphocytes # (Auto) 1.7 0.4-5.4 10 ^3/uL Monocytes # (Auto) 0.8 0-1.3 10 ^3/uL Eosinophils # (Auto) 0.2 0-0.8 10 ^3/uL Basophils # (Auto) 0 0-0.2 10 ^3/uL Nucleated Red Blood Cells 0.0 % Sodium Level 143 136-145 mmol/L Potassium Level 4.0 3.5-5.1 mmol/L Chloride Level 112 H 98-107 mmol/L Carbon Dioxide Level 24 20-31 mmol/L Anion Gap 7 5-15 Blood Urea Nitrogen 12 9-23 mg/dL Creatinine 0.83 0.550-1.02 mg/dL Glomerular Filtration Rate Calc 71 >90 mL/min BUN/Creatinine Ratio 14.5 10.0-20.0 Serum Glucose 94 74-106 mg/dL Calcium Level 9.1 8.7-10.4 mg/dL B-Type Natriuretic Peptide 1107.06 0-100 pg/mL Assessment/Plan Primary Diagnosis 79 year old female with PMHx of anemia, anxiety, asthma, CAD, CHF, CKF, COPD, CVA, depression, GERD, Gout, HLD, HTN, MS, pacemaker, cardiac stents presents to the ED via EMS with a chief complaint of chest pain onset 3 days. Per EMS, patient had an MS about 3 months ago, had cardiac stents placed at [facility] by Dr. Tidwell. Patient's last discharge from [facility] was on 03/26/25, has been admitted several times due to chest pain. Patient states she has been experiencing substernal chest pain, worsens with palpation, currently rates pain 8/10. In route to ED, EMS was concerned for possible STEMI due to EKG results, upon ED arrival, EKG was done, no STEMI. Denies shortness of breath, nausea, vomiting, diarrhea, headache, dizziness, fever, chills, cough, cold, congestion, numbness/tingling. No other symptoms or modifying factors present at this time. acute chest pain suspected copd exacerbation suspected bacterial PNA weakness CAD with MS CKD CVA depression GERD HLD HTN admitted consult cardiology Plan discussed with: Patient LEANNA BROWN DO Apr 12, 2025 20:17
[2025-04-12] MEDS: MORPHINE SULFATE INJ 2 MG/ml SYRG IV PRN (21:34)
[2025-04-12 23:46] VITALS: BP 103/61; PULSE 62; RESP 16; TEMP 98; O2SAT 97
[2025-04-13] VITALS (8 sets, daily range): BP systolic 99–121; BP diastolic 45–71; PULSE 53–65; RESP 14–20; TEMP 97.5–98.1; O2SAT 94–98
--- NOTE | 2025-04-13 01:02 | DVHINCON2 ---
Date of service: Apr 12, 2025 Referring Physician Nadia Reason for Consultation Chest pain History of Present Illness This is a 79 year old female with a PMH of anemia, anxiety, asthma, CAD, CHF, CKF, COPD, CVA, depression, GERD, Gout, HLD, HTN, [place], pacemaker, cardiac stents who was brought in by EMS with complaints of chest pain x 3 days. Per EMS, patient had an [place] about 3 months ago, had cardiac stents placed at [facility] by Dr. Tidwell. Patient's last discharge from [facility] was on 03/26/25, has been admitted several times due to chest pain. Patient states she has been experiencing substernal chest pain, worsens with palpation. Patient currently rates pain 8/. EKG shows atrial-sensed ventricular-paced complexes. Troponin is negative x3. CBC and chemistry are WNL. Patient was admitted to the hospital. I am asked to consult on this patient. Family History: Arthritis Cardiovascular disease G8 MOTHER, Onset:Unknown Cerebrovascular accident (CVA) G8 FATHER Coronary artery disease G8 MOTHER, Onset:Unknown FH: diabetes mellitus G8 MOTHER, Onset:Unknown FH: heart disease G8 MOTHER, Onset:Unknown FH: hypertension G8 MOTHER, Onset:Unknown FH: lupus 19 CHILD FH: myocardial infarction G8 MOTHER, Onset:Unknown Family history: Cardiovascular disease G8 MOTHER, Onset:Unknown G8 FATHER, Onset:Unknown Glaucoma G8 MOTHER, Onset:Unknown Allergies: Coded Allergies: Ceftriaxone (Verified Allergy, Intermediate, generalized rash, 11/08/22) COMPLAINT ANALYSTCARLENE MEJIA Hydrocodone (Verified Allergy, Unknown, rash, 05/18/23) tylenol is okay per patient Home Meds Active Scripts Ciprofloxacin Hcl (Cipro) 500 Mg Tab, 1 TAB PO BID, #14 TAB Prov:CHUCK STEWART MD 04/04/25 Ciprofloxacin Hcl (Cipro) 250 Mg Tab, 250 MG PO BID for 5 Days, #10 TAB Prov:YENNY FRAIRE MD 02/09/25 Oxycodone W/ Acetaminophen (Percocet 5/325MG) 1 Tab Tb, 1 TAB PO QID PRN, #20 TAB Prov:YENNY FRAIRE MD 02/09/25 Levofloxacin Hemihydrate (LEVOFLOXACIN) 750 Mg Tab, 750 MG PO DAILY for 5 Days, #5 TAB Prov:PHILL LEALENT 01/17/25 Oxycodone W/ Acetaminophen (Percocet 5/325MG) 1 Tab Tb, 1 TAB PO QID, #30 TAB Prov:JANE VEGA MD 09/29/24 Phenazopyridine HCl (Eq Urinary Pain Relief Ma) 99.5 Mg Tab, 99.5 MG PO TID for 10 Days, #30 TAB Prov:PHILL LEAL RESDIENT 09/23/24 Metoprolol Succinate (Metoprolol Succinate Er) 25 Mg Tab, 1 TAB PO DAILY for 30 Days, #30 TAB 5 Refills Prov:AXEL CARABALLO RESIDENT 09/06/24 Spironolactone (Aldactone) 25 Mg Tab, 25 MG PO DAILY for 30 Days, #30 TAB Prov:BHARAT MICHELLE RESIDENT 07/22/24 Oxybutynin Chloride (Oxybutynin Chloride) 5 Mg Tab, 5 MG PO Q8HR for 30 Days, #90 TAB Prov:BHARAT MICHELLE RESIDENT 07/22/24 Atorvastatin Calcium (ATORVASTATIN CALCIUM) 20 Mg Tab, 40 MG PO HS for 30 Days, #60 TAB Prov:BHARAT MICHELLE RESIDENT 07/22/24 Duloxetine Hydrochloride (Duloxetine Hydrochloride) 30 Mg Cap, 30 MG PO DAILY for 30 Days, #30 CAP Prov:WINSOME GOMEZ MD 04/29/24 Clopidogrel Bisulfate (CLOPIDOGREL) 75 Mg Tab, 75 MG PO DAILY for 30 Days, #30 TAB 5 Refills Prov:YENNY FRAIRE MD 11/26/23 Ranolazine (Ranolazine ER) 500 Mg Tab, 500 MG PO BID for 30 Days, #60 TAB 2 Refills Prov:MAGAN RUSS RESIDENT 09/16/23 Reported Medications Polyethylene Glycol 3350 (Miralax) 17 Gm Pow, 17 GM PO DAILY PRN for FOR CONSTIPATION for 30 Days, #30 01/28/24 Ipratropium-Albuterol (Ipratropium [place]/Albut) 1 Yuli Yuli, 1 VIAL NEB Q6HPRN PRN for SHORTNESS OF BREATH for 13 Days, #180 09/05/23 Fluticasone-Salmeterol (Fluticasone Propionate/SA 250-50 Mcg/Dose) 1 Aer Aer, 1 PUFF INH BID for 30 Days, #60 09/05/23 Albuterol Sulfate (Albuterol Sulfate Hfa) 108 Mcg/Act Aer, 2 PUFF INH Q4HPRN PRN for dyspnea for 17 Days, #18 09/05/23 Cholecalciferol (VITAMIN D3) 2,000 Unit Tab, 1 TAB PO BID for 30 Days, #60 08/28/23 Multiple Vitamin (Tab-A-Radha) Tab, 1 TAB PO DAILY for 30 Days, #30 08/28/23 Aspirin (Aspir-Low) 81 Mg Tab, 1 TAB PO DAILY for 30 Days, #30 08/28/23 Ascorbic Acid (VITAMIN C TABLET) 500 Mg Tb, 1 TAB PO BID for 30 Days, #60 05/18/23 Pantoprazole Sodium Sesquihydr (Pantoprazole Sodium) 40 Mg Tab, 1 TAB PO DAILY 05/18/23 Current Medications Current Medications Medications (Trade) Dose Ordered Sig/Asha Route PRN Reason Start Time Stop Time Status Last Admin Acetaminophen/ Hydrocodone Bitart (Roca 5/325MG Tab) 1 tab Q4HP PRN PO MODERATE PAIN (4-6 PAIN SCALE) 04/12/25 20:15 Hold Ondansetron HCl (Zofran) 4 mg Q4HP PRN IV NAUSEA / VOMITING 04/12/25 20:15 Enoxaparin Sodium (Lovenox) 40 mg DAILY SC 04/13/25 10:00 Acetaminophen (Tylenol Tablet) 650 mg Q6HP PRN PO PAIN SCALE 1-3 OR TEMP>100.4 04/12/25 20:15 Morphine Sulfate 2 mg Q4HPRN PRN IV SEVERE PAIN (7-10 PAIN SCALE) 04/12/25 20:15 04/12/25 21:34 Nitroglycerin (Ntrostat Sublingual) 0.4 mg Q5MINP PRN SL FOR CHEST PAIN 04/12/25 20:15 Morphine Sulfate 2 mg Q30M PRN IV FOR CHEST PAIN 04/12/25 20:15 Review of Systems Constitutional: denies: chills, diaphoresis, fatigue, fever, malaise, sweats, weakness, others EENTM: denies: blurred vision, double vision, ear bleeding, ear discharge, ear drainage, ear pain, ear ringing, eye pain, eye redness, hearing loss, mouth pain, mouth swelling, nasal discharge, nose bleeding, nose congestion, nose pain, photophobia, tearing, throat pain, throat swelling, voice changes, others Respiratory: denies: cough, hemoptysis, orthopnea, SOB at rest, shortness of breath, SOB with excertion, stridor, wheezing, others Cardiovascular: reports: chest pain; denies: dizzy spells, diaphoresis, Dyspnea on exertion, edema, irregular heart beat, left arm pain, lightheadedness, palpitations, PND, syncope, others Gastrointestinal: denies: abdomen distended, abdominal pain, blood streaked bowels, constipated, diarrhea, dysphagia, difficulty swallowing, hematemesis, melena, nausea, poor appetite, poor fluid intake, rectal bleeding, rectal pain, vomiting, others Genitourinary: denies: abnormal vagina bleeding, burning, dyspareunia, dysuria, flank pain, frequency, hematuria, incontinence, pain, , vagina discharge, urgency, others Neurological: denies: dizziness, fainting, headache, left sided numbness, left sided weakness, numbness, paresthesia, pre-existing deficit, right sided numbness, right sided weakness, seizure, speech problems, tingling, tremors, weakness, others Musculoskeletal: denies: back pain, gout, joint pain, joint swelling, muscle pain, muscle stiffness, neck pain, others Integumetry: denies: bruises, change in color, change in hair/nails, dryness, laceration, lesions, lumps, rash, wounds, others Allergic/Immunocompromised: denies: Difficulty Healing, Frequent Infections, Hives, Itching, others Hematologic/Lymphatic: denies: anemia, blood clots, easy bleeding, easy bruising, swollen glands, others Endocrine: denies: excessive hunger, excessive sweating, excessive thirst, excessive urination, flushing, intolerance to cold, intolerance to heat, unexplained weight gain, unexplained weight loss, others Psychiatric: denies: anxiety, bipolar disorder, depression, hopeless, panic disorder, schizophrenia, sleepless, suicidal, others All Other Systems: Reviewed and Negative Vital Signs Vital Signs Date Time Temp Pulse Resp B/P (MAP) Pulse Ox O2 Delivery O2 Flow Rate FiO2 04/12/25 22:58 65 13 126/57 04/12/25 20:00 93 04/12/25 19:15 98.2 98.2 04/12/25 19:00 Nasal Cannula* 2 28 Physical Exam GENERAL: Alert and oriented x 3. No acute distress. EYES: PERRL, EOMI. Anicteric. HENT: Moist mucous membranes. LUNGS: Clear to auscultation bilaterally. CARDIOVASCULAR: Regular rate and rhythm. ABDOMEN: Soft, non-tender and non-distended. EXTREMITIES: No edema. NEUROLOGIC: No focal neurological deficits. SKIN: Warm, dry. Labs/Diagnostic Data Labs Test 04/12/25 17:05 04/12/25 14:19 Range/Units Troponin I High Sensitivity 28 </=34 ng/L White Blood Count 7.3 4.4-10.8 10^3/uL Red Blood Count 4.47 4.0-5.20 10^6/uL Hemoglobin 13.6 12.2-16.2 g/dL Hematocrit 40.5 36.0-46.0 % Mean Corpuscular Volume 90.5 80.0-100.0 fL Mean Corpuscular Hemoglobin 30.3 28.0-32.0 pg Mean Corpuscular Hemoglobin Concent 33.5 32.0-36.0 g/dL Red Cell Distribution Width 16.6 H 11.8-14.3 % Platelet Count 234 140-450 10^3/uL Mean Platelet Volume 7.8 6.9-10.8 fL Neutrophils (%) (Auto) 62.7 37.0-80.0 % Lymphocytes (%) (Auto) 23.4 10.0-50.0 % Monocytes (%) (Auto) 10.5 0.0-12.0 % Eosinophils (%) (Auto) 2.8 0.0-7.0 % Basophils (%) (Auto) 0.6 0.0-2.0 % Neutrophils # (Auto) 4.6 1.6-8.6 10 ^3/uL Lymphocytes # (Auto) 1.7 0.4-5.4 10 ^3/uL Monocytes # (Auto) 0.8 0-1.3 10 ^3/uL Eosinophils # (Auto) 0.2 0-0.8 10 ^3/uL Basophils # (Auto) 0 0-0.2 10 ^3/uL Nucleated Red Blood Cells 0.0 % Sodium Level 143 136-145 mmol/L Potassium Level 4.0 3.5-5.1 mmol/L Chloride Level 112 H 98-107 mmol/L Carbon Dioxide Level 24 20-31 mmol/L Anion Gap 7 5-15 Blood Urea Nitrogen 12 9-23 mg/dL Creatinine 0.83 0.550-1.02 mg/dL Glomerular Filtration Rate Calc 71 >90 mL/min BUN/Creatinine Ratio 14.5 10.0-20.0 Serum Glucose 94 74-106 mg/dL Calcium Level 9.1 8.7-10.4 mg/dL B-Type Natriuretic Peptide 1107.06 0-100 pg/mL Assessment Acute chest pain. Acute on chronic systolic (congestive) heart failure. Anxiety and depression. Asthma. CAD. COPD. History of CVA. GERD. Gout. HLD. HTN. History of [place] with stents. History of pacemaker. Plan/Recommendation I agree with your ongoing assessment and care of plan. DVT prophylactics. Morphine for pain management. Nitro SL. Additional plan as per the hospital course. A total of 45 minutes was spent reviewing the patient record, examining the patient, making a diagnostic and therapeutic plan, discussing this plan with medical personnel, following up on diagnostic studies and following the patient for clinical stability excluding any and all procedures. At least 50% of this time was spent in direct, [id number]-ea-hfeq contact. Plan discussed with: Patient CARLA GUTIERRES MD Apr 13, 2025 01:02
[2025-04-13] MEDS: ONDANSETRON HCL 4 MG/2 ML VIAL IV PRN (04:09)
[2025-04-13 05:32] LABS: Hematocrit 36.9 % (36.0-46.0); Hemoglobin 12.7 g/dL (12.2-16.2); Mean Corpuscular Hemoglobin 30.7 pg (28.0-32.0); Mean Corpuscular Volume 89.4 fL (80.0-100.0); Nucleated Red Blood Cells % 0.2 %
[2025-04-13 05:52] LABS: Alkaline Phosphatase 89 U/L (46-116)
[2025-04-13 05:53] LABS: Albumin 3.7 g/dL (3.2-4.8); Anion Gap 8 (5-15); BUN/Creatinine Ratio 18.8 (10.0-20.0); Bilirubin, Total 0.5 mg/dL (0.2-1.0); Blood Urea Nitrogen 15 mg/dL (9-23); Calcium 8.9 mg/dL (8.7-10.4); Carbon Dioxide 25 mmol/L (20-31); Potassium 3.6 mmol/L (3.5-5.1); Sodium 144 mmol/L (136-145)
[2025-04-13 06:14] LABS: Alanine Aminotransferase 9 U/L (7-40); Chloride 111 mmol/L (98-107); Glucose 117 mg/dL (74-106); Total Protein 5.7 g/dL (5.7-8.2)
[2025-04-13] MEDS: ENOXAPARIN SOD 40 MG/0.4 ML SYRINGE SC SCH (10:28)
--- NOTE | 2025-04-13 23:32 | DVHPN2 ---
Progress Note - Dictate Date Seen: Apr 13, 2025 Medical Necessity Reason Pt with a Central, PICC or Fol: No Subjective Patient was seen and evaluated in follow up. Patient is complaining of generalized discomfort. CL 111. vital signs Vital Sign Date Time Temp Pulse Resp B/P (MAP) Pulse Ox O2 Delivery O2 Flow Rate FiO2 04/13/25 13:00 98.0 65 16 114/63 (80) 98 98.0 04/13/25 00:40 Room Air* 0 21 Total Intake and Output 04/12/25 04/12/25 04/13/25 15:00 23:00 07:00 Intake Total 480 ml Balance 480 ml medications Current Medications Medications Dose Ordered Sig/Asha Route Start Time Stop Time Status Last Admin Dose Admin Acetaminophen/ Hydrocodone Bitart 1 tab Q4HP PRN PO 04/12/25 20:15 Hold Ondansetron HCl 4 mg Q4HP PRN IV 04/12/25 20:15 04/13/25 04:09 4 MG Enoxaparin Sodium 40 mg DAILY SC 04/13/25 10:00 04/13/25 10:28 40 MG Acetaminophen 650 mg Q6HP PRN PO 04/12/25 20:15 Morphine Sulfate 2 mg Q4HPRN PRN IV 04/12/25 20:15 04/13/25 09:16 2 MG Nitroglycerin 0.4 mg Q5MINP PRN SL 04/12/25 20:15 Morphine Sulfate 2 mg Q30M PRN IV 04/12/25 20:15 objective GENERAL: Alert and oriented x 3. No acute distress. EYES: PERRL, EOMI. Anicteric. HENT: Moist mucous membranes. LUNGS: Clear to auscultation bilaterally. CARDIOVASCULAR: Regular rate and rhythm. ABDOMEN: Soft, non-tender and non-distended. EXTREMITIES: No edema. NEUROLOGIC: No focal neurological deficits. SKIN: Warm, dry. laboratory and microbiology Laboratory Tests 04/13/25 04:40 Test 04/13/25 04:40 Range/Units Serum Glucose 117 H 74-106 mg/dL Problem List Acute chest pain. Acute on chronic systolic (congestive) heart failure. Anxiety and depression. Asthma. CAD. COPD. History of CVA. GERD. Gout. HLD. HTN. History of [place] with stents. History of pacemaker. Assessment/Plan Continued all current supportive medical care. DVT prophylactics. Morphine and Tylenol for pain management. Nitro SL. Additional plan as per the hospital course. Plan discussed with: Patient CARLA GUTIERRES MD Apr 13, 2025 13:53
[2025-04-14] VITALS (8 sets, daily range): BP systolic 111–139; BP diastolic 57–80; PULSE 61–73; RESP 16–19; TEMP 97.1–98.2; O2SAT 94–98
--- NOTE | 2025-04-14 15:56 | DVHPN2 ---
Progress Note - Dictate Date Seen: Apr 14, 2025 Medical Necessity Reason Pt with a Central, PICC or Fol: No Subjective Patient was seen and evaluated in follow up. No overnight events. Patient has no complaints. BS are WNL. Stress test is ordered. vital signs Vital Sign Date Time Temp Pulse Resp B/P (MAP) Pulse Ox O2 Delivery O2 Flow Rate FiO2 04/14/25 12:33 98.1 64 17 111/61 (78) 97 98.1 04/14/25 08:00 Room Air* 0 21 Total Intake and Output 04/13/25 04/13/25 04/14/25 15:00 23:00 07:00 Intake Total 600 ml 400 ml Output Total 190 ml 500 ml Balance 410 ml -100 ml medications Current Medications Medications Dose Ordered Sig/Asha Route Start Time Stop Time Status Last Admin Dose Admin Acetaminophen/ Hydrocodone Bitart 1 tab Q4HP PRN PO 04/12/25 20:15 Hold Ondansetron HCl 4 mg Q4HP PRN IV 04/12/25 20:15 04/14/25 04:25 4 MG Enoxaparin Sodium 40 mg DAILY SC 04/13/25 10:00 04/14/25 11:37 40 MG Acetaminophen 650 mg Q6HP PRN PO 04/12/25 20:15 Morphine Sulfate 2 mg Q4HPRN PRN IV 04/12/25 20:15 04/14/25 09:12 2 MG Nitroglycerin 0.4 mg Q5MINP PRN SL 04/12/25 20:15 Morphine Sulfate 2 mg Q30M PRN IV 04/12/25 20:15 objective GENERAL: Alert and oriented x 3. No acute distress. EYES: PERRL, EOMI. Anicteric. HENT: Moist mucous membranes. LUNGS: Clear to auscultation bilaterally. CARDIOVASCULAR: Regular rate and rhythm. ABDOMEN: Soft, non-tender and non-distended. EXTREMITIES: No edema. NEUROLOGIC: No focal neurological deficits. SKIN: Warm, dry. laboratory and microbiology Laboratory Tests 04/13/25 04:40 Test 04/13/25 04:40 Range/Units Serum Glucose 117 H 74-106 mg/dL Problem List Acute chest pain. Acute on chronic systolic (congestive) heart failure. Anxiety and depression. Asthma. CAD. COPD. History of CVA. GERD. Gout. HLD. HTN. History of [place] with stents. History of pacemaker. Assessment/Plan Continued all current supportive medical care. Stress test. DVT prophylactics. Morphine and Tylenol for pain management. Nitro SL. Additional plan as per the hospital course. Plan discussed with: Patient CARLA GUTIERRES MD Apr 14, 2025 12:51
[2025-04-15 01:00] VITALS: BP 123/67; PULSE 61; RESP 12; TEMP 97; O2SAT 96
[2025-04-15 05:00] VITALS: BP 145/77; PULSE 67; RESP 18; TEMP 98.6; O2SAT 99
[2025-04-15 08:00] VITALS: PULSE 55; PULSE 66; RESP 16; O2SAT 96
[2025-04-15 09:00] VITALS: BP 121/82; PULSE 68; RESP 17; TEMP 97.7; O2SAT 97
[2025-04-15] MEDS: REGADENOSON 0.4 MG/5 ML SYRG IV ONE ×2 (09:21)
[2025-04-15 13:00] VITALS: BP 147/147; PULSE 70; RESP 17; TEMP 99; O2SAT 98
--- NOTE | 2025-04-15 13:22 | DVHPN2 ---
Progress Note Date Seen: Apr 14, 2025 Medical Necessity Reason Pt with a Central, PICC or Fol: No Objective vital signs Vital Sign Date Time Temp Pulse Resp B/P (MAP) Pulse Ox O2 Delivery O2 Flow Rate FiO2 04/15/25 10:33 69 18 140/71 04/15/25 09:00 97.7 97 97.7 04/15/25 08:00 Room Air* 0 21 Total Intake and Output 04/14/25 04/14/25 04/15/25 15:00 23:00 07:00 Intake Total 750 ml 150 ml Output Total 300 ml 200 ml Balance 450 ml -50 ml medications Current Medications Medications Dose Ordered Sig/Asha Route Start Time Stop Time Status Last Admin Dose Admin Acetaminophen/ Hydrocodone Bitart 1 tab Q4HP PRN PO 04/12/25 20:15 Hold Ondansetron HCl 4 mg Q4HP PRN IV 04/12/25 20:15 04/14/25 04:25 4 MG Enoxaparin Sodium 40 mg DAILY SC 04/13/25 10:00 04/15/25 10:03 40 MG Acetaminophen 650 mg Q6HP PRN PO 04/12/25 20:15 Morphine Sulfate 2 mg Q4HPRN PRN IV 04/12/25 20:15 04/15/25 10:03 2 MG Nitroglycerin 0.4 mg Q5MINP PRN SL 04/12/25 20:15 Morphine Sulfate 2 mg Q30M PRN IV 04/12/25 20:15 laboratory and microbiology Laboratory Tests 04/13/25 04:40 Test 04/13/25 04:40 Range/Units Serum Glucose 117 H 74-106 mg/dL Labs and/or images reviewed: Labs reviewed by me, Image(s) reviewed by me Problem List/Assessment/Plan Problem List/Assessment/Plan 79 year old female with PMHx of anemia, anxiety, asthma, CAD, CHF, CKF, COPD, CVA, depression, GERD, Gout, HLD, HTN, [place], pacemaker, cardiac stents presents to the ED via EMS with a chief complaint of chest pain onset 3 days. Per EMS, patient had an [place] about 3 months ago, had cardiac stents placed at [facility] by Dr. Tidwell. Patient's last discharge from [facility] was on 03/26/25, has been admitted several times due to chest pain. Patient states she has been experiencing substernal chest pain, worsens with palpation, currently rates pain 8/10. In route to ED, EMS was concerned for possible STEMI due to EKG results, upon ED arrival, EKG was done, no STEMI. Denies shortness of breath, nausea, vomiting, diarrhea, headache, dizziness, fever, chills, cough, cold, congestion, numbness/tingling. No other symptoms or modifying factors present at this time. acute chest pain suspected copd exacerbation suspected bacterial PNA weakness CAD with [place] CKD CVA depression GERD HLD HTN admitted consult cardiology resuming home HH started on iv abx Plan discussed with: Patient My Orders My Orders Orders - LEANNA BROWN DO Procedure Category Date Status Time Electrocardigram EKG 04/14/25 Logged 14:39 Electrocardigram EKG 04/14/25 Logged 16:01 Pt Request For Service PT 04/15/25 Logged 13:15 * Newspaper Photographer CONS 04/15/25 Transmitted Consult Azithromycin 500mg/ PHA 04/16/25 Verified 250ml (Zithromax 50 10:00 LEANNA BROWN DO Apr 15, 2025 13:22
--- NOTE | 2025-04-15 13:23 | DVHPN2 ---
Progress Note Date Seen: Apr 15, 2025 Medical Necessity Reason Pt with a Central, PICC or Fol: No Objective vital signs Vital Sign Date Time Temp Pulse Resp B/P (MAP) Pulse Ox O2 Delivery O2 Flow Rate FiO2 04/15/25 10:33 69 18 140/71 04/15/25 09:00 97.7 97 97.7 04/15/25 08:00 Room Air* 0 21 Total Intake and Output 04/14/25 04/14/25 04/15/25 15:00 23:00 07:00 Intake Total 750 ml 150 ml Output Total 300 ml 200 ml Balance 450 ml -50 ml medications Current Medications Medications Dose Ordered Sig/Asha Route Start Time Stop Time Status Last Admin Dose Admin Acetaminophen/ Hydrocodone Bitart 1 tab Q4HP PRN PO 04/12/25 20:15 Hold Ondansetron HCl 4 mg Q4HP PRN IV 04/12/25 20:15 04/14/25 04:25 4 MG Enoxaparin Sodium 40 mg DAILY SC 04/13/25 10:00 04/15/25 10:03 40 MG Acetaminophen 650 mg Q6HP PRN PO 04/12/25 20:15 Morphine Sulfate 2 mg Q4HPRN PRN IV 04/12/25 20:15 04/15/25 10:03 2 MG Nitroglycerin 0.4 mg Q5MINP PRN SL 04/12/25 20:15 Morphine Sulfate 2 mg Q30M PRN IV 04/12/25 20:15 laboratory and microbiology Laboratory Tests 04/13/25 04:40 Test 04/13/25 04:40 Range/Units Serum Glucose 117 H 74-106 mg/dL Problem List/Assessment/Plan Problem List/Assessment/Plan 79 year old female with PMHx of anemia, anxiety, asthma, CAD, CHF, CKF, COPD, CVA, depression, GERD, Gout, HLD, HTN, [place], pacemaker, cardiac stents presents to the ED via EMS with a chief complaint of chest pain onset 3 days. Per EMS, patient had an [place] about 3 months ago, had cardiac stents placed at [facility] by Dr. Tidwell. Patient's last discharge from [facility] was on 03/26/25, has been admitted several times due to chest pain. Patient states she has been experiencing substernal chest pain, worsens with palpation, currently rates pain 8/10. In route to ED, EMS was concerned for possible STEMI due to EKG results, upon ED arrival, EKG was done, no STEMI. Denies shortness of breath, nausea, vomiting, diarrhea, headache, dizziness, fever, chills, cough, cold, congestion, numbness/tingling. No other symptoms or modifying factors present at this time. acute chest pain suspected copd exacerbation suspected bacterial PNA weakness CAD with [place] CKD CVA depression GERD HLD HTN admitted consult cardiology resuming home HH started on iv abx Plan discussed with: Patient My Orders My Orders Orders - LEANNA BROWN DO Procedure Category Date Status Time Electrocardigram EKG 04/14/25 Logged 14:39 Electrocardigram EKG 04/14/25 Logged 16:01 Pt Request For Service PT 04/15/25 Logged 13:15 * Paper Baling Machine Operator CONS 04/15/25 Transmitted Consult Azithromycin 500mg/ PHA 04/16/25 Verified 250ml (Zithromax 50 10:00 LEANNA BROWN DO Apr 15, 2025 13:23
--- NOTE | 2025-04-15 16:54 | DVHSR ---
APPROVED REPORT Exam: Nuclear Stress Test BMI: 0 Stress Test Details Stress Test: Pharmacologic stress testing performed using 0.4 mg of regadenoson per 5 mL given IV over 10 seconds. HR Resting HR: 78 bpm Max Heart Rate (APMHR): 140.236573 bpm Max HR Achieved: 96 bpm Target HR (85% APMHR): 119.389094 bpm % of APMHR: 68.57 Recovery HR: 86 bpm BP Resting BP: 130/76 mmHg Recovery BP: 151/75 mmHg ECG Resting ECG: Sinus Rhythm Clinical Reason for Termination: Completed protocol Nurse Comments Recieved pt. from [facility]. A/Ox4 on RA. Connected to cardiac rehab nurse, VS stable. PIV flushes well. Reviewed POC. Pt. verbalized understanding of procedure including risks and side effects, agrees for stress testing. Lexiscan stress test performed per protocol. [facility] tech administered Cardiolite. Pt. tolerated well. Pt. stable, no change on exam. VS returned to baseline. Transferred to [facility] via bed w/ tech. Stress ECG Conclusion end stage HF LVEF 14% anterior wall and inferior wall infarct full thickness, lateral wall infarct NM EXAM: Myocardial Perfusion REST/STRESS Imaging Protocol: Rest Tc-99m/Stress Tc-99m 1 day Resting Data Rest SPECT myocardial perfusion imaging was performed in supine position 60 minutes following the intravenous injection of 9.3 mCi of Tc-99m Sestamibi. Time of rest injection: 07:49 Date: 04/15/2025 Time of rest imagin:49 Date: 04/15/2025 Administration Route: IV Administration Site: Right Arm Pharmacologic Stress Pharmacologic stress test was performed by injecting Regadenoson 0.4 mg IV push followed by the intravenous injection of 27.1 mCi of Tc-99m Sestamibi. Time of stress injection: 09:27 Date: 04/15/2025 Time of stress imagin:27 Date: 04/15/2025 Administration Route: IV Administration Site: Right Arm Gated Stress SPECT was performed 60 minutes after stress injection. The images were gated to evaluate regional wall motion and calculate left ventricular ejection fraction. Stress only was performed in the Supine position. Nuclear Conclusion Nuclear Findings: negative for ischemia end stage HF LVEF 14% anterior wall and inferior wall infarct full thickness, lateral wall infarct
[2025-04-15 21:00] VITALS: BP 126/37; PULSE 68; RESP 18; TEMP 98.1; O2SAT 96
--- NOTE | 2025-04-15 21:40 | DVHPN2 ---
Progress Note - Dictate Date Seen: Apr 15, 2025 Medical Necessity Reason Pt with a Central, PICC or Fol: No Subjective Patient was seen and evaluated in follow up. Nuclear Stress Test: negative for ischemia, end stage HF, LVEF 14%, anterior wall and inferior wall infarct full thickness, lateral wall infarct. Pacemaker pending interrogation. vital signs Vital Sign Date Time Temp Pulse Resp B/P (MAP) Pulse Ox O2 Delivery O2 Flow Rate FiO2 04/15/25 10:33 69 18 140/71 04/15/25 09:00 97.7 97 97.7 04/15/25 08:00 Room Air* 0 21 Total Intake and Output 04/14/25 04/14/25 04/15/25 15:00 23:00 07:00 Intake Total 750 ml 150 ml Output Total 300 ml 200 ml Balance 450 ml -50 ml medications Current Medications Medications Dose Ordered Sig/Asha Route Start Time Stop Time Status Last Admin Dose Admin Acetaminophen/ Hydrocodone Bitart 1 tab Q4HP PRN PO 04/12/25 20:15 Hold Ondansetron HCl 4 mg Q4HP PRN IV 04/12/25 20:15 04/14/25 04:25 4 MG Enoxaparin Sodium 40 mg DAILY SC 04/13/25 10:00 04/15/25 10:03 40 MG Acetaminophen 650 mg Q6HP PRN PO 04/12/25 20:15 Morphine Sulfate 2 mg Q4HPRN PRN IV 04/12/25 20:15 04/15/25 10:03 2 MG Nitroglycerin 0.4 mg Q5MINP PRN SL 04/12/25 20:15 Morphine Sulfate 2 mg Q30M PRN IV 04/12/25 20:15 objective GENERAL: Alert and oriented x 3. No acute distress. EYES: PERRL, EOMI. Anicteric. HENT: Moist mucous membranes. LUNGS: Clear to auscultation bilaterally. CARDIOVASCULAR: Regular rate and rhythm. ABDOMEN: Soft, non-tender and non-distended. EXTREMITIES: No edema. NEUROLOGIC: No focal neurological deficits. SKIN: Warm, dry. laboratory and microbiology Laboratory Tests 04/13/25 04:40 Test 04/13/25 04:40 Range/Units Serum Glucose 117 H 74-106 mg/dL Problem List Acute chest pain. Acute on chronic systolic (congestive) heart failure. Anxiety and depression. Asthma. CAD. COPD. History of CVA. GERD. Gout. HLD. HTN. History of [place] with stents. History of pacemaker. Assessment/Plan Continued all current supportive medical care. DVT prophylactics. Morphine and Tylenol for pain management. Nitro SL. Additional plan as per the hospital course. Plan discussed with: Patient CARLA GUTIERRES MD Apr 15, 2025 11:54
[2025-04-16] VITALS (8 sets, daily range): BP systolic 123–147; BP diastolic 73–87; PULSE 71–86; RESP 16–18; TEMP 97.3–99.3; O2SAT 96–98
[2025-04-16] MEDS: AZITHROMYCIN 500MG/250ML 250 ML IV SCH (09:13)
--- NOTE | 2025-04-16 13:49 | DVHPN2 ---
Progress Note - Dictate Date Seen: Apr 16, 2025 Medical Necessity Reason Pt with a Central, PICC or Fol: No Subjective Patient was seen and evaluated in follow up. No overnight events. She is on 2 LPM NC. Patient c/o abdominal pain. Urine culture is pending. vital signs Vital Sign Date Time Temp Pulse Resp B/P (MAP) Pulse Ox O2 Delivery O2 Flow Rate FiO2 04/16/25 09:44 69 17 135/74 04/16/25 09:00 99.3 97 99.3 04/16/25 08:00 Nasal Cannula* 2 28 Total Intake and Output 04/15/25 04/15/25 04/16/25 15:00 23:00 07:00 Intake Total 400 ml 100 ml Balance 400 ml 100 ml medications Current Medications Medications Dose Ordered Sig/Asha Route Start Time Stop Time Status Last Admin Dose Admin Acetaminophen/ Hydrocodone Bitart 1 tab Q4HP PRN PO 04/12/25 20:15 Hold Ondansetron HCl 4 mg Q4HP PRN IV 04/12/25 20:15 04/14/25 04:25 4 MG Enoxaparin Sodium 40 mg DAILY SC 04/13/25 10:00 04/16/25 09:13 40 MG Acetaminophen 650 mg Q6HP PRN PO 04/12/25 20:15 Morphine Sulfate 2 mg Q4HPRN PRN IV 04/12/25 20:15 04/16/25 09:14 2 MG Nitroglycerin 0.4 mg Q5MINP PRN SL 04/12/25 20:15 Morphine Sulfate 2 mg Q30M PRN IV 04/12/25 20:15 Azithromycin 250 ml @ 125 mls/hr DAILY IV 04/16/25 10:00 04/16/25 09:13 125 MLS/HR Ceftriaxone Sodium 50 ml @ 100 mls/hr DAILY@09 IV 04/16/25 09:00 Hold objective GENERAL: Alert and oriented x 3. No acute distress. EYES: PERRL, EOMI. Anicteric. HENT: Moist mucous membranes. LUNGS: Clear to auscultation bilaterally. CARDIOVASCULAR: Regular rate and rhythm. ABDOMEN: Soft, non-tender and non-distended. EXTREMITIES: No edema. NEUROLOGIC: No focal neurological deficits. SKIN: Warm, dry. laboratory and microbiology Laboratory Tests 04/13/25 04:40 Test 04/13/25 04:40 Range/Units Serum Glucose 117 H 74-106 mg/dL Problem List Acute chest pain. Acute on chronic systolic (congestive) heart failure. Anxiety and depression. Asthma. CAD. COPD. History of CVA. GERD. Gout. HLD. HTN. History of [place] with stents. History of pacemaker. Assessment/Plan Continued all current supportive medical care. Nitro SL. DVT prophylactics. IV antibiotics as ordered. Morphine and Tylenol for pain management. Additional plan as per the hospital course. Plan discussed with: Patient CARLA GUTIERRES MD Apr 16, 2025 12:31
--- NOTE | 2025-04-16 14:07 | ECG ---
[facility] Test Date: 2025-04-14 Test Time: 14:36:19 Pat Name: MONICA JAMES Department: Respiratoy Room: 0250 A Gender: F Boat Person: KAYLYN : 1945 Requested By: LEANNA BROWN Order Number: [id number] Reading MD: Adair Mijares Measurements Intervals [place] Rate: 76 P: 51 ID: [id number] QRS: -68 QRSD: 147 T: 98 QT: 432 QTc: 486 Interpretive Statements Atrial-sensed ventricular-paced complexes No further rhythm analysis attempted due to paced rhythm Left atrial enlargement Nonspecific IVCD with LAD Left ventricular hypertrophy Borderline abnrm T, anterolateral leads ST depression V1-V3, suggest recording posterior leads Baseline wander in lead(s) II,III,aVF Electronically Signed On 04-16-2025 15:04:36 PST by Adair Mijares Please click the below link to view image of tracing.
[2025-04-16] MEDS: HYDROMORPHONE HCL 1 MG/ML INJ ONE (22:26)
[2025-04-16] MEDS: HYDROmorphone HCL 2 MG/ML VL/or syr IV ONE (22:41)
[2025-04-17] VITALS (8 sets, daily range): BP systolic 105–151; BP diastolic 62–83; PULSE 49–87; RESP 17–18; TEMP 97.8–98.8; O2SAT 96–98
[2025-04-17] MEDS: HYDROmorphone HCL 2 MG/ML VL/or syr ONE (02:32)
[2025-04-17] MEDS: HYDROmorphone HCL 2 MG/ML VL/or syr IV ONE (02:37)
--- NOTE | 2025-04-17 21:19 | DVHPN2 ---
Progress Note - Dictate Date Seen: Apr 17, 2025 Medical Necessity Reason Pt with a Central, PICC or Fol: No Subjective Patient was seen and evaluated in follow up. Patient is maintained on 2 LPM NC. Patient is c/o abdominal pain with radiation to her lower back. Patient states Dilaudid is more effective for her pain. Telemetry reviewed. vital signs Vital Sign Date Time Temp Pulse Resp B/P (MAP) Pulse Ox O2 Delivery O2 Flow Rate FiO2 04/17/25 10:53 80 16 122/78 04/17/25 08:58 98.0 97 98.0 04/16/25 20:00 Nasal Cannula* 2 28 Total Intake and Output 04/16/25 04/16/25 04/17/25 15:00 23:00 07:00 Intake Total 230 ml 120 ml Output Total 280 ml 200 ml Balance -50 ml -80 ml medications Current Medications Medications Dose Ordered Sig/Asha Route Start Time Stop Time Status Last Admin Dose Admin Acetaminophen/ Hydrocodone Bitart 1 tab Q4HP PRN PO 04/12/25 20:15 Hold Ondansetron HCl 4 mg Q4HP PRN IV 04/12/25 20:15 04/14/25 04:25 4 MG Enoxaparin Sodium 40 mg DAILY SC 04/13/25 10:00 04/17/25 10:52 40 MG Acetaminophen 650 mg Q6HP PRN PO 04/12/25 20:15 Morphine Sulfate 2 mg Q4HPRN PRN IV 04/12/25 20:15 04/17/25 10:53 2 MG Nitroglycerin 0.4 mg Q5MINP PRN SL 04/12/25 20:15 Morphine Sulfate 2 mg Q30M PRN IV 04/12/25 20:15 Azithromycin 250 ml @ 125 mls/hr DAILY IV 04/16/25 10:00 04/17/25 10:00 125 MLS/HR Ceftriaxone Sodium 50 ml @ 100 mls/hr DAILY@09 IV 04/16/25 09:00 Hold objective GENERAL: Alert and oriented x 3. No acute distress. EYES: PERRL, EOMI. Anicteric. HENT: Moist mucous membranes. LUNGS: Clear to auscultation bilaterally. CARDIOVASCULAR: Regular rate and rhythm. ABDOMEN: Soft, non-tender and non-distended. EXTREMITIES: No edema. NEUROLOGIC: No focal neurological deficits. SKIN: Warm, dry. laboratory and microbiology Laboratory Tests 04/13/25 04:40 Test 04/13/25 04:40 Range/Units Serum Glucose 117 H 74-106 mg/dL Problem List Acute chest pain. Acute on chronic systolic (congestive) heart failure. Anxiety and depression. Asthma. CAD. COPD. History of CVA. GERD. Gout. HLD. HTN. History of [place] with stents. History of pacemaker. Assessment/Plan Continued all current supportive medical care. Nitro SL. DVT prophylactics. IV antibiotics as ordered. Morphine and Tylenol for pain management. Additional plan as per the hospital course. Plan discussed with: Patient CARLA GUTIERRES MD Apr 17, 2025 11:32
[2025-04-18] VITALS (7 sets, daily range): BP systolic 118–140; BP diastolic 66–87; PULSE 76–88; RESP 16–18; TEMP 97.9–98.4; O2SAT 94–98
--- NOTE | 2025-04-18 11:35 | DVHPN2 ---
Progress Note Date Seen: Apr 16, 2025 Medical Necessity Reason Pt with a Central, PICC or Fol: No Objective vital signs Vital Sign Date Time Temp Pulse Resp B/P (MAP) Pulse Ox O2 Delivery O2 Flow Rate FiO2 04/18/25 11:31 88 18 140/87 04/18/25 09:00 97.9 96 97.9 04/18/25 08:00 Nasal Cannula* 2 28 Total Intake and Output 04/17/25 04/17/25 04/18/25 15:00 23:00 07:00 Intake Total 990 ml 400 ml Output Total 600 ml 400 ml Balance 390 ml 0 ml medications Current Medications Medications Dose Ordered Sig/Asha Route Start Time Stop Time Status Last Admin Dose Admin Acetaminophen/ Hydrocodone Bitart 1 tab Q4HP PRN PO 04/12/25 20:15 Hold Ondansetron HCl 4 mg Q4HP PRN IV 04/12/25 20:15 04/17/25 22:33 4 MG Enoxaparin Sodium 40 mg DAILY SC 04/13/25 10:00 04/18/25 10:21 40 MG Acetaminophen 650 mg Q6HP PRN PO 04/12/25 20:15 Morphine Sulfate 2 mg Q4HPRN PRN IV 04/12/25 20:15 04/18/25 11:31 2 MG Nitroglycerin 0.4 mg Q5MINP PRN SL 04/12/25 20:15 Morphine Sulfate 2 mg Q30M PRN IV 04/12/25 20:15 Azithromycin 250 ml @ 125 mls/hr DAILY IV 04/16/25 10:00 04/18/25 10:22 125 MLS/HR Ceftriaxone Sodium 50 ml @ 100 mls/hr DAILY@09 IV 04/16/25 09:00 Hold laboratory and microbiology Laboratory Tests 04/13/25 04:40 Test 04/13/25 04:40 Range/Units Serum Glucose 117 H 74-106 mg/dL Microbiology Date/Time Source Procedure Growth Status 04/15/25 16:04 Voided Urine Urine Culture - Preliminary Resulted Problem List/Assessment/Plan Problem List/Assessment/Plan 79 year old female with PMHx of anemia, anxiety, asthma, CAD, CHF, CKF, COPD, CVA, depression, GERD, Gout, HLD, HTN, [place], pacemaker, cardiac stents presents to the ED via EMS with a chief complaint of chest pain onset 3 days. Per EMS, patient had an [place] about 3 months ago, had cardiac stents placed at [facility] by Dr. Tidwell. Patient's last discharge from [facility] was on 03/26/25, has been admitted several times due to chest pain. Patient states she has been experiencing substernal chest pain, worsens with palpation, currently rates pain 8/10. In route to ED, EMS was concerned for possible STEMI due to EKG results, upon ED arrival, EKG was done, no STEMI. Denies shortness of breath, nausea, vomiting, diarrhea, headache, dizziness, fever, chills, cough, cold, congestion, numbness/tingling. No other symptoms or modifying factors present at this time. acute chest pain suspected copd exacerbation suspected bacterial PNA weakness CAD with [place] CKD CVA depression GERD HLD HTN admitted consult cardiology resuming home HH started on iv abx Plan discussed with: Patient Dietary Evaluation Review Comments: Monitor PO intake, lab values, weight trend, and I/O Expected Outcomes/Goals: Intake to meet >75% estimated needs FU 3-5 days LEANNA BROWN DO Apr 18, 2025 11:35
--- NOTE | 2025-04-18 11:50 | DVHPN2 ---
Progress Note Date Seen: Apr 16, 2025 Medical Necessity Reason Pt with a Central, PICC or Fol: No Objective vital signs Vital Sign Date Time Temp Pulse Resp B/P (MAP) Pulse Ox O2 Delivery O2 Flow Rate FiO2 04/18/25 11:31 88 18 140/87 04/18/25 09:00 97.9 96 97.9 04/18/25 08:00 Nasal Cannula* 2 28 Total Intake and Output 04/17/25 04/17/25 04/18/25 15:00 23:00 07:00 Intake Total 990 ml 400 ml Output Total 600 ml 400 ml Balance 390 ml 0 ml medications Current Medications Medications Dose Ordered Sig/Asha Route Start Time Stop Time Status Last Admin Dose Admin Acetaminophen/ Hydrocodone Bitart 1 tab Q4HP PRN PO 04/12/25 20:15 Hold Ondansetron HCl 4 mg Q4HP PRN IV 04/12/25 20:15 04/17/25 22:33 4 MG Enoxaparin Sodium 40 mg DAILY SC 04/13/25 10:00 04/18/25 10:21 40 MG Acetaminophen 650 mg Q6HP PRN PO 04/12/25 20:15 Morphine Sulfate 2 mg Q4HPRN PRN IV 04/12/25 20:15 04/18/25 11:31 2 MG Nitroglycerin 0.4 mg Q5MINP PRN SL 04/12/25 20:15 Morphine Sulfate 2 mg Q30M PRN IV 04/12/25 20:15 Azithromycin 250 ml @ 125 mls/hr DAILY IV 04/16/25 10:00 04/18/25 10:22 125 MLS/HR Ceftriaxone Sodium 50 ml @ 100 mls/hr DAILY@09 IV 04/16/25 09:00 Hold laboratory and microbiology Laboratory Tests 04/13/25 04:40 Test 04/13/25 04:40 Range/Units Serum Glucose 117 H 74-106 mg/dL Microbiology Date/Time Source Procedure Growth Status 04/15/25 16:04 Voided Urine Urine Culture - Preliminary Resulted Labs and/or images reviewed: Labs reviewed by me, Image(s) reviewed by me Problem List/Assessment/Plan Problem List/Assessment/Plan 79 year old female with PMHx of anemia, anxiety, asthma, CAD, CHF, CKF, COPD, CVA, depression, GERD, Gout, HLD, HTN, [place], pacemaker, cardiac stents presents to the ED via EMS with a chief complaint of chest pain onset 3 days. Per EMS, patient had an [place] about 3 months ago, had cardiac stents placed at [facility] by Dr. Tidwell. Patient's last discharge from [facility] was on 03/26/25, has been admitted several times due to chest pain. Patient states she has been experiencing substernal chest pain, worsens with palpation, currently rates pain 8/10. In route to ED, EMS was concerned for possible STEMI due to EKG results, upon ED arrival, EKG was done, no STEMI. Denies shortness of breath, nausea, vomiting, diarrhea, headache, dizziness, fever, chills, cough, cold, congestion, numbness/tingling. No other symptoms or modifying factors present at this time. acute chest pain suspected copd exacerbation suspected bacterial PNA weakness CAD with [place] CKD CVA depression GERD HLD HTN admitted consult cardiology resuming home HH started on iv abx Plan discussed with: Patient My Orders My Orders Orders - LEANNA BROWN DO Procedure Category Date Status Time *Consult CONS 04/18/25 Transmitted 11:35 Clopidogrel Bisulfate PHA 04/19/25 Logged (Plavix) 10:00 Metoprolol Tartrate PHA 04/18/25 Logged Tablet (Lopressor Ta 22:00 Spironolactone PHA 04/19/25 Transmitted (Aldactone) 10:00 Atorvastatin (Lipitor) PHA 04/18/25 Logged 22:00 Duloxetine Hcl PHA 04/19/25 Transmitted Capsule (Cymbalta 10:00 Dietary Evaluation Review Comments: Monitor PO intake, lab values, weight trend, and I/O Expected Outcomes/Goals: Intake to meet >75% estimated needs FU 3-5 days LEANNA BROWN DO Apr 18, 2025 11:50
--- NOTE | 2025-04-18 11:51 | DVHPN2 ---
Progress Note Date Seen: Apr 17, 2025 Medical Necessity Reason Pt with a Central, PICC or Fol: No Objective vital signs Vital Sign Date Time Temp Pulse Resp B/P (MAP) Pulse Ox O2 Delivery O2 Flow Rate FiO2 04/18/25 11:31 88 18 140/87 04/18/25 09:00 97.9 96 97.9 04/18/25 08:00 Nasal Cannula* 2 28 Total Intake and Output 04/17/25 04/17/25 04/18/25 15:00 23:00 07:00 Intake Total 990 ml 400 ml Output Total 600 ml 400 ml Balance 390 ml 0 ml medications Current Medications Medications Dose Ordered Sig/Asha Route Start Time Stop Time Status Last Admin Dose Admin Acetaminophen/ Hydrocodone Bitart 1 tab Q4HP PRN PO 04/12/25 20:15 Hold Ondansetron HCl 4 mg Q4HP PRN IV 04/12/25 20:15 04/17/25 22:33 4 MG Enoxaparin Sodium 40 mg DAILY SC 04/13/25 10:00 04/18/25 10:21 40 MG Acetaminophen 650 mg Q6HP PRN PO 04/12/25 20:15 Morphine Sulfate 2 mg Q4HPRN PRN IV 04/12/25 20:15 04/18/25 11:31 2 MG Nitroglycerin 0.4 mg Q5MINP PRN SL 04/12/25 20:15 Morphine Sulfate 2 mg Q30M PRN IV 04/12/25 20:15 Azithromycin 250 ml @ 125 mls/hr DAILY IV 04/16/25 10:00 04/18/25 10:22 125 MLS/HR Ceftriaxone Sodium 50 ml @ 100 mls/hr DAILY@09 IV 04/16/25 09:00 Hold laboratory and microbiology Laboratory Tests 04/13/25 04:40 Test 04/13/25 04:40 Range/Units Serum Glucose 117 H 74-106 mg/dL Microbiology Date/Time Source Procedure Growth Status 04/15/25 16:04 Voided Urine Urine Culture - Preliminary Resulted Labs and/or images reviewed: Labs reviewed by me, Image(s) reviewed by me Problem List/Assessment/Plan Problem List/Assessment/Plan 79 year old female with PMHx of anemia, anxiety, asthma, CAD, CHF, CKF, COPD, CVA, depression, GERD, Gout, HLD, HTN, [place], pacemaker, cardiac stents presents to the ED via EMS with a chief complaint of chest pain onset 3 days. Per EMS, patient had an GA about 3 months ago, had cardiac stents placed at [facility] by Dr. Tidwell. Patient's last discharge from [facility] was on 03/26/25, has been admitted several times due to chest pain. Patient states she has been experiencing substernal chest pain, worsens with palpation, currently rates pain 8/10. In route to ED, EMS was concerned for possible STEMI due to EKG results, upon ED arrival, EKG was done, no STEMI. Denies shortness of breath, nausea, vomiting, diarrhea, headache, dizziness, fever, chills, cough, cold, congestion, numbness/tingling. No other symptoms or modifying factors present at this time. acute chest pain suspected copd exacerbation suspected bacterial PNA weakness CAD with [place] CKD CVA depression GERD HLD HTN admitted consult cardiology resuming home HH started on iv abx Plan discussed with: Patient My Orders My Orders Orders - LEANNA BROWN DO Procedure Category Date Status Time *Consult CONS 04/18/25 Transmitted 11:35 Clopidogrel Bisulfate PHA 04/19/25 Logged (Plavix) 10:00 Metoprolol Tartrate PHA 04/18/25 Logged Tablet (Lopressor Ta 22:00 Spironolactone PHA 04/19/25 Transmitted (Aldactone) 10:00 Atorvastatin (Lipitor) PHA 04/18/25 Logged 22:00 Duloxetine Hcl PHA 04/19/25 Transmitted Capsule (Cymbalta 10:00 Dietary Evaluation Review Comments: Monitor PO intake, lab values, weight trend, and I/O Expected Outcomes/Goals: Intake to meet >75% estimated needs FU 3-5 days LEANNA BROWN DO Apr 18, 2025 11:51
--- NOTE | 2025-04-18 11:51 | DVHPN2 ---
Progress Note Date Seen: Apr 18, 2025 Medical Necessity Reason Pt with a Central, PICC or Fol: No Objective vital signs Vital Sign Date Time Temp Pulse Resp B/P (MAP) Pulse Ox O2 Delivery O2 Flow Rate FiO2 04/18/25 11:31 88 18 140/87 04/18/25 09:00 97.9 96 97.9 04/18/25 08:00 Nasal Cannula* 2 28 Total Intake and Output 04/17/25 04/17/25 04/18/25 15:00 23:00 07:00 Intake Total 990 ml 400 ml Output Total 600 ml 400 ml Balance 390 ml 0 ml medications Current Medications Medications Dose Ordered Sig/Asha Route Start Time Stop Time Status Last Admin Dose Admin Acetaminophen/ Hydrocodone Bitart 1 tab Q4HP PRN PO 04/12/25 20:15 Hold Ondansetron HCl 4 mg Q4HP PRN IV 04/12/25 20:15 04/17/25 22:33 4 MG Enoxaparin Sodium 40 mg DAILY SC 04/13/25 10:00 04/18/25 10:21 40 MG Acetaminophen 650 mg Q6HP PRN PO 04/12/25 20:15 Morphine Sulfate 2 mg Q4HPRN PRN IV 04/12/25 20:15 04/18/25 11:31 2 MG Nitroglycerin 0.4 mg Q5MINP PRN SL 04/12/25 20:15 Morphine Sulfate 2 mg Q30M PRN IV 04/12/25 20:15 Azithromycin 250 ml @ 125 mls/hr DAILY IV 04/16/25 10:00 04/18/25 10:22 125 MLS/HR Ceftriaxone Sodium 50 ml @ 100 mls/hr DAILY@09 IV 04/16/25 09:00 Hold laboratory and microbiology Laboratory Tests 04/13/25 04:40 Test 04/13/25 04:40 Range/Units Serum Glucose 117 H 74-106 mg/dL Microbiology Date/Time Source Procedure Growth Status 04/15/25 16:04 Voided Urine Urine Culture - Preliminary Resulted Labs and/or images reviewed: Labs reviewed by me, Image(s) reviewed by me Problem List/Assessment/Plan Problem List/Assessment/Plan 79 year old female with PMHx of anemia, anxiety, asthma, CAD, CHF, CKF, COPD, CVA, depression, GERD, Gout, HLD, HTN, [place], pacemaker, cardiac stents presents to the ED via EMS with a chief complaint of chest pain onset 3 days. Per EMS, patient had an [place] about 3 months ago, had cardiac stents placed at [facility] by Dr. Tidwell. Patient's last discharge from [facility] was on 03/26/25, has been admitted several times due to chest pain. Patient states she has been experiencing substernal chest pain, worsens with palpation, currently rates pain 8/10. In route to ED, EMS was concerned for possible STEMI due to EKG results, upon ED arrival, EKG was done, no STEMI. Denies shortness of breath, nausea, vomiting, diarrhea, headache, dizziness, fever, chills, cough, cold, congestion, numbness/tingling. No other symptoms or modifying factors present at this time. acute chest pain suspected copd exacerbation suspected bacterial PNA weakness CAD with [place] CKD CVA depression GERD HLD HTN admitted consult cardiology resuming home HH started on iv abx Plan discussed with: Patient My Orders My Orders Orders - LEANNA BROWN DO Procedure Category Date Status Time *Consult CONS 04/18/25 Transmitted 11:35 Clopidogrel Bisulfate PHA 04/19/25 Logged (Plavix) 10:00 Metoprolol Tartrate PHA 04/18/25 Logged Tablet (Lopressor Ta 22:00 Spironolactone PHA 04/19/25 Transmitted (Aldactone) 10:00 Atorvastatin (Lipitor) PHA 04/18/25 Logged 22:00 Duloxetine Hcl PHA 04/19/25 Transmitted Capsule (Cymbalta 10:00 Dietary Evaluation Review Comments: Monitor PO intake, lab values, weight trend, and I/O Expected Outcomes/Goals: Intake to meet >75% estimated needs FU 3-5 days LEANNA BROWN DO Apr 18, 2025 11:51
--- NOTE | 2025-04-18 14:36 | DVHINCON2 ---
Date of service: Apr 17, [address] Zuniga Reason for Consultation copd History of Present Illness HPI pt is an 79 yo female, with a h/o copd/emphysema, known to our service from previous admissions. She presented with UTI symptoms and chest pain/shortness of breath/wheezing. Pt also has ah/o CAD, previous CABG and CHF. admitted for iv abx. CXR unremarkable Home Meds Active Scripts Ciprofloxacin Hcl (Cipro) 500 Mg Tab, 1 TAB PO BID, #14 TAB Prov:CHUCK STEWART MD 04/04/25 Ciprofloxacin Hcl (Cipro) 250 Mg Tab, 250 MG PO BID for 5 Days, #10 TAB Prov:YENNY FRAIRE MD 02/09/25 Oxycodone W/ Acetaminophen (Percocet 5/325MG) 1 Tab Tb, 1 TAB PO QID PRN, #20 TAB Prov:YENNY FRAIRE MD 02/09/25 Levofloxacin Hemihydrate (LEVOFLOXACIN) 750 Mg Tab, 750 MG PO DAILY for 5 Days, #5 TAB Prov:PHILL LAEL RESDIENT 01/17/25 Oxycodone W/ Acetaminophen (Percocet 5/325MG) 1 Tab Tb, 1 TAB PO QID, #30 TAB Prov:JANE VEGA MD 09/29/24 Phenazopyridine HCl (Eq Urinary Pain Relief Ma) 99.5 Mg Tab, 99.5 MG PO TID for 10 Days, #30 TAB Prov:PHILL LEAL RESDIENT 09/23/24 Metoprolol Succinate (Metoprolol Succinate Er) 25 Mg Tab, 1 TAB PO DAILY for 30 Days, #30 TAB 5 Refills Prov:AXEL CARABALLO RESIDENT 09/06/24 Spironolactone (Aldactone) 25 Mg Tab, 25 MG PO DAILY for 30 Days, #30 TAB Prov:BHARAT MICHELLE 07/22/24 Oxybutynin Chloride (Oxybutynin Chloride) 5 Mg Tab, 5 MG PO Q8HR for 30 Days, #90 TAB Prov:BHARAT MICHELLE RESIDENT 07/22/24 Atorvastatin Calcium (ATORVASTATIN CALCIUM) 20 Mg Tab, 40 MG PO HS for 30 Days, #60 TAB Prov:BHARAT IMCHELLE RESIDENT 07/22/24 Duloxetine Hydrochloride (Duloxetine Hydrochloride) 30 Mg Cap, 30 MG PO DAILY for 30 Days, #30 CAP Prov:WINSOME GOMEZ MD 04/29/24 Clopidogrel Bisulfate (CLOPIDOGREL) 75 Mg Tab, 75 MG PO DAILY for 30 Days, #30 T AB 5 Refills Prov:YENNY FRAIRE MD 11/26/23 Ranolazine (Ranolazine ER) 500 Mg Tab, 500 MG PO BID for 30 Days, #60 TAB 2 Refills Prov:MAGAN RUSS 09/16/23 Reported Medications Polyethylene Glycol 3350 (Miralax) 17 Gm Pow, 17 GM PO DAILY PRN for FOR CONSTIPATION for 30 Days, #30 01/28/24 Ipratropium-Albuterol (Ipratropium [place]/Albut) 1 Yuli Yuli, 1 VIAL NEB Q6HPRN PRN for SHORTNESS OF BREATH for 13 Days, #180 09/05/23 Fluticasone-Salmeterol (Fluticasone Propionate/SA 250-50 Mcg/Dose) 1 Aer Aer, 1 PUFF INH BID for 30 Days, #60 09/05/23 Albuterol Sulfate (Albuterol Sulfate Hfa) 108 Mcg/Act Aer, 2 PUFF INH Q4HPRN PRN for dyspnea for 17 Days, #18 09/05/23 Cholecalciferol (VITAMIN D3) 2,000 Unit Tab, 1 TAB PO BID for 30 Days, #60 08/28/23 Multiple Vitamin (Tab-A-Radha) Tab, 1 TAB PO DAILY for 30 Days, #30 08/28/23 Aspirin (Aspir-Low) 81 Mg Tab, 1 TAB PO DAILY for 30 Days, #30 08/28/23 Ascorbic Acid (VITAMIN C TABLET) 500 Mg Tb, 1 TAB PO BID for 30 Days, #60 05/18/23 Pantoprazole Sodium Sesquihydr (Pantoprazole Sodium) 40 Mg Tab, 1 TAB PO DAILY 05/18/23 Past Medical History Cardiac: CAD, CHF Pulmonary: COPD Central Nervous System: No pertinent Hx GI: No pertinent Hx Hemotology/Oncology: No pertinent Hx Hepatobiliary: No pertinent Hx Psychiatric: No pertinent Hx Musculoskeletal: No pertinent Hx Rheumotologic: No pertinent Hx Infectious Disease: No peritnent Hx ENT: No pertinent Hx Renal/: No pertinent Hx Endocrine: No pertinent Hx Dermatology: No pertinent Hx Past Surgical History: CABG Patient Family History: Arthritis Cardiovascular disease G8 MOTHER, Onset:Unknown Cerebrovascular accident (CVA) G8 FATHER Coronary artery disease G8 MOTHER, Onset:Unknown FH: diabetes mellitus G8 MOTHER, Onset:Unknown FH: heart disease G8 MOTHER, Onset:Unknown FH: hypertension G8 MOTHER, Onset:Unknown FH: lupus 19 CHILD FH: myocardial infarction G8 MOTHER, Onset:Unknown Family history: Cardiovascular disease G8 MOTHER, Onset:Unknown G8 FATHER, Onset:Unknown Glaucoma G8 MOTHER, Onset:Unknown Review of Systems Constitutional: Weakness Ears, Nose, & Throat: No symptom reported Eyes: No symptom reported Pulmonary/Respiratory: Dyspnea, Cough, Pleuritic Chest Pain Cardiovascular: No symptom reported Gastrointestinal: No symptom reported Genitourinary: No symptom reported Musculoskeletal: No symptom reported Skin: No symptom reported Psychiatric: No symptom reported Endocrine: No symptom reported Hemotologic/Lymphatic: No symptom reported H&P Exam Vital Signs Vital Signs Date Time Temp Pulse Resp B/P (MAP) Pulse Ox O2 Delivery O2 Flow Rate FiO2 04/18/25 12:48 98.0 88 18 140/87 (104) 96 98.0 04/18/25 08:00 Nasal Cannula* 2 28 General Appeara: Well developed, Well nourished, Normal Appearance Head Exam: Normal inspection Neck Exam: Normal inspection, Non-tender, Normal alignment Eye Exam: bilateral eye Normal inspection, bilateral eye PERRL, bilateral eye EOMI Ear Exam: bilateral ear Auricle normal, bilateral ear Canal normal, bilateral ear TM normal Nasal Exam: Normal inspection Mouth: Normal Inspection Pulmonary/Respiratory: Normal inspection, Normal breath sounds, Chest non- tender Cardiovascular/Chest: Normal inspection Peripheral Pulses: 4+ carotid (R), 4+ carotid (L) Abdominal Exam: Normal bowel sounds, Soft Labs/Xrays Labs Test 04/14/25 14:38 04/13/25 04:40 04/12/25 17:05 04/12/25 14:19 Range/Units POC Glucose 103 70-106 mg/dl White Blood Count 6.3 4.4-10.8 10^3/uL Red Blood Count 4.13 4.0-5.20 10^6/uL Hemoglobin 12.7 12.2-16.2 g/dL Hematocrit 36.9 36.0-46.0 % Mean Corpuscular Volume 89.4 80.0-100.0 fL Mean Corpuscular Hemoglobin 30.7 28.0-32.0 pg Mean Corpuscular Hemoglobin Concent 34.4 32.0-36.0 g/dL Red Cell Distribution Width 16.1 H 11.8-14.3 % Platelet Count 216 140-450 10^3/uL Mean Platelet Volume 8.3 6.9-10.8 fL Neutrophils (%) (Auto) 56.9 37.0-80.0 % Lymphocytes (%) (Auto) 27.2 10.0-50.0 % Monocytes (%) (Auto) 12.0 0.0-12.0 % Eosinophils (%) (Auto) 3.0 0.0-7.0 % Basophils (%) (Auto) 0.9 0.0-2.0 % Neutrophils # (Auto) 3.6 1.6-8.6 10 ^3/uL Lymphocytes # (Auto) 1.7 0.4-5.4 10 ^3/uL Monocytes # (Auto) 0.7 0-1.3 10 ^3/uL Eosinophils # (Auto) 0.2 0-0.8 10 ^3/uL Basophils # (Auto) 0.1 0-0.2 10 ^3/uL Nucleated Red Blood Cells 0.2 % Sodium Level 144 136-145 mmol/L Potassium Level 3.6 3.5-5.1 mmol/L Chloride Level 111 H 98-107 mmol/L Carbon Dioxide Level 25 20-31 mmol/L Anion Gap 8 5-15 Blood Urea Nitrogen 15 9-23 mg/dL Creatinine 0.80 0.550-1.02 mg/dL Glomerular Filtration Rate Calc 74 >90 mL/min BUN/Creatinine Ratio 18.8 10.0-20.0 Serum Glucose 117 H 74-106 mg/dL Calcium Level 8.9 8.7-10.4 mg/dL Total Bilirubin 0.5 0.2-1.0 mg/dL Aspartate Amino Transferase (AST) 18 13-40 U/L Alanine Aminotransferase (ALT) 9 7-40 U/L Alkaline Phosphatase 89 46-116 U/L Total Protein 5.7 5.7-8.2 g/dL Albumin 3.7 3.2-4.8 g/dL Troponin I High Sensitivity 28 </=34 ng/L B-Type Natriuretic Peptide 1107.06 0-100 pg/mL Microbiology Date/Time Source Procedure Growth Status 04/17/25 16:24 Nose MRSA Screen - Final Complete 04/15/25 16:04 Voided Urine Urine Culture - Final Complete Assessment/Plan Plan copd stable chronic dependency on 02 emphysema previous smoker CAD plan 02 support abx cx inc sp re-start nebs cardiac work up dvt proph full code Plan discussed with: Patient RYNE PEÑA MD Apr 18, 2025 14:36
--- NOTE | 2025-04-18 18:34 | DVHPN2 ---
Progress Note - Dictate Date Seen: Apr 18, 2025 Medical Necessity Reason Pt with a Central, PICC or Fol: No Subjective Patient was seen and evaluated in follow up. Patient is stable on 2 LPM NC. Patient is complaining of abdominal pain with radiation to her lower back. Final urine culture grew >100,000 CFU/mL Mixed Gram Negative Layne 3 Adel Types. Telemetry reviewed. vital signs Vital Sign Date Time Temp Pulse Resp B/P (MAP) Pulse Ox O2 Delivery O2 Flow Rate FiO2 04/18/25 12:48 98.0 88 18 140/87 (104) 96 98.0 04/18/25 08:00 Nasal Cannula* 2 28 Total Intake and Output 04/17/25 04/17/25 04/18/25 15:00 23:00 07:00 Intake Total 990 ml 400 ml Output Total 600 ml 400 ml Balance 390 ml 0 ml medications Current Medications Medications Dose Ordered Sig/Asha Route Start Time Stop Time Status Last Admin Dose Admin Acetaminophen/ Hydrocodone Bitart 1 tab Q4HP PRN PO 04/12/25 20:15 Hold Ondansetron HCl 4 mg Q4HP PRN IV 04/12/25 20:15 04/17/25 22:33 4 MG Enoxaparin Sodium 40 mg DAILY SC 04/13/25 10:00 04/18/25 10:21 40 MG Acetaminophen 650 mg Q6HP PRN PO 04/12/25 20:15 Morphine Sulfate 2 mg Q4HPRN PRN IV 04/12/25 20:15 04/18/25 11:31 2 MG Nitroglycerin 0.4 mg Q5MINP PRN SL 04/12/25 20:15 Morphine Sulfate 2 mg Q30M PRN IV 04/12/25 20:15 Azithromycin 250 ml @ 125 mls/hr DAILY IV 04/16/25 10:00 04/18/25 10:22 125 MLS/HR Ceftriaxone Sodium 50 ml @ 100 mls/hr DAILY@09 IV 04/16/25 09:00 Hold Clopidogrel Bisulfate 75 mg DAILY PO 04/19/25 10:00 Metoprolol Tartrate 25 mg BID PO 04/18/25 22:00 Spironolactone 25 mg DAILY PO 04/19/25 10:00 Atorvastatin Calcium 40 mg HS PO 04/18/25 22:00 Duloxetine HCl 30 mg DAILY PO 04/19/25 10:00 objective GENERAL: Alert and oriented x 3. No acute distress. EYES: PERRL, EOMI. Anicteric. HENT: Moist mucous membranes. LUNGS: Clear to auscultation bilaterally. CARDIOVASCULAR: Regular rate and rhythm. ABDOMEN: Soft, non-tender and non-distended. EXTREMITIES: No edema. NEUROLOGIC: No focal neurological deficits. SKIN: Warm, dry. laboratory and microbiology Laboratory Tests 04/13/25 04:40 Test 04/13/25 04:40 Range/Units Serum Glucose 117 H 74-106 mg/dL Problem List Acute chest pain. Acute on chronic systolic (congestive) heart failure. Anxiety and depression. Asthma. CAD. COPD. History of CVA. GERD. Gout. HLD. HTN. History of [place] with stents. History of pacemaker. Assessment/Plan Continued all current supportive medical care. Nitro SL. Aldactone. Lipitor, Plavix, Metoprolol. DVT prophylactics. IV antibiotics as ordered. Morphine and Tylenol for pain management. Additional plan as per the hospital course. Dietary Evaluation Review Comments: Monitor PO intake, lab values, weight trend, and I/O Expected Outcomes/Goals: Intake to meet >75% estimated needs FU 3-5 days Plan discussed with: Patient CARLA GUTIERRES MD Apr 18, 2025 13:34
[2025-04-18] MEDS: ATORVASTATIN 20 MG TAB PO SCH (19:51)
[2025-04-18] MEDS: METOPROLOL TARTRATE 25 MG TAB PO SCH (20:03)
[2025-04-19] VITALS (9 sets, daily range): BP systolic 111–139; BP diastolic 58–75; PULSE 65–77; RESP 16–18; TEMP 97–98.6; O2SAT 95–98
[2025-04-19] MEDS: ACETAMINOPHEN 325 MG TAB PO PRN (07:08)
[2025-04-19] MEDS: CLOPIDOGREL BISULFATE 75 MG TAB PO SCH (10:10)
[2025-04-19] MEDS: SPIRONOLACTONE 25 MG TAB PO SCH (10:10)
--- NOTE | 2025-04-19 16:47 | DVHPN2 ---
Progress Note - Dictate Date Seen: Apr 19, 2025 Medical Necessity Reason Pt with a Central, PICC or Fol: No Subjective Patient was seen and evaluated in follow up. No overnight events. Patient is on 2 LPM NC. MRSA is negative. Telemetry reviewed. vital signs Vital Sign Date Time Temp Pulse Resp B/P (MAP) Pulse Ox O2 Delivery O2 Flow Rate FiO2 04/19/25 13:00 98.6 66 16 115/71 (86) 97 98.6 04/19/25 08:00 Nasal Cannula* 2 28 Total Intake and Output 04/18/25 04/18/25 04/19/25 15:00 23:00 07:00 Intake Total 910 ml 400 ml Output Total 500 ml 350 ml Balance 410 ml 50 ml medications Current Medications Medications Dose Ordered Sig/Asha Route Start Time Stop Time Status Last Admin Dose Admin Acetaminophen/ Hydrocodone Bitart 1 tab Q4HP PRN PO 04/12/25 20:15 Hold Ondansetron HCl 4 mg Q4HP PRN IV 04/12/25 20:15 04/17/25 22:33 4 MG Enoxaparin Sodium 40 mg DAILY SC 04/13/25 10:00 04/19/25 10:09 40 MG Acetaminophen 650 mg Q6HP PRN PO 04/12/25 20:15 04/19/25 07:08 650 MG Morphine Sulfate 2 mg Q4HPRN PRN IV 04/12/25 20:15 04/19/25 12:03 2 MG Nitroglycerin 0.4 mg Q5MINP PRN SL 04/12/25 20:15 Morphine Sulfate 2 mg Q30M PRN IV 04/12/25 20:15 Azithromycin 250 ml @ 125 mls/hr DAILY IV 04/16/25 10:00 04/19/25 10:10 125 MLS/HR Ceftriaxone Sodium 50 ml @ 100 mls/hr DAILY@09 IV 04/16/25 09:00 Hold Clopidogrel Bisulfate 75 mg DAILY PO 04/19/25 10:00 04/19/25 10:10 75 MG Metoprolol Tartrate 25 mg BID PO 04/18/25 22:00 04/19/25 10:10 25 MG Spironolactone 25 mg DAILY PO 04/19/25 10:00 04/19/25 10:10 25 MG Atorvastatin Calcium 40 mg HS PO 04/18/25 22:00 04/18/25 19:51 40 MG Duloxetine HCl 30 mg DAILY PO 04/19/25 10:00 04/19/25 10:10 30 MG objective GENERAL: Alert and oriented x 3. No acute distress. EYES: PERRL, EOMI. Anicteric. HENT: Moist mucous membranes. LUNGS: Clear to auscultation bilaterally. CARDIOVASCULAR: Regular rate and rhythm. ABDOMEN: Soft, non-tender and non-distended. EXTREMITIES: No edema. NEUROLOGIC: No focal neurological deficits. SKIN: Warm, dry. laboratory and microbiology Laboratory Tests 04/13/25 04:40 Test 04/13/25 04:40 Range/Units Serum Glucose 117 H 74-106 mg/dL Problem List Acute chest pain. Acute on chronic systolic (congestive) heart failure. Anxiety and depression. Asthma. CAD. COPD. History of CVA. GERD. Gout. HLD. HTN. History of [place] with stents. History of pacemaker. Assessment/Plan Continued all current supportive medical care. Lipitor, Plavix, Metoprolol. IV antibiotics as ordered. DVT prophylactics. Aldactone. Morphine for pain management. Additional plan as per the hospital course. Dietary Evaluation Review Comments: Monitor PO intake, lab values, weight trend, and I/O Expected Outcomes/Goals: Intake to meet >75% estimated needs FU 3-5 days Plan discussed with: Patient CARLA GUTIERRES MD Apr 19, 2025 16:47
--- NOTE | 2025-04-19 16:55 | DVHPN2 ---
Progress Note - Dictate Date Seen: Apr 19, 2025 Medical Necessity Reason Pt with a Central, PICC or Fol: No vital signs Vital Sign Date Time Temp Pulse Resp B/P (MAP) Pulse Ox O2 Delivery O2 Flow Rate FiO2 04/19/25 13:00 98.6 66 16 115/71 (86) 97 98.6 04/19/25 08:00 Nasal Cannula* 2 28 Total Intake and Output 04/18/25 04/18/25 04/19/25 15:00 23:00 07:00 Intake Total 910 ml 400 ml Output Total 500 ml 350 ml Balance 410 ml 50 ml medications Current Medications Medications Dose Ordered Sig/Asha Route Start Time Stop Time Status Last Admin Dose Admin Acetaminophen/ Hydrocodone Bitart 1 tab Q4HP PRN PO 04/12/25 20:15 Hold Ondansetron HCl 4 mg Q4HP PRN IV 04/12/25 20:15 04/17/25 22:33 4 MG Enoxaparin Sodium 40 mg DAILY SC 04/13/25 10:00 04/19/25 10:09 40 MG Acetaminophen 650 mg Q6HP PRN PO 04/12/25 20:15 04/19/25 07:08 650 MG Morphine Sulfate 2 mg Q4HPRN PRN IV 04/12/25 20:15 04/19/25 12:03 2 MG Nitroglycerin 0.4 mg Q5MINP PRN SL 04/12/25 20:15 Morphine Sulfate 2 mg Q30M PRN IV 04/12/25 20:15 Azithromycin 250 ml @ 125 mls/hr DAILY IV 04/16/25 10:00 04/19/25 10:10 125 MLS/HR Ceftriaxone Sodium 50 ml @ 100 mls/hr DAILY@09 IV 04/16/25 09:00 Hold Clopidogrel Bisulfate 75 mg DAILY PO 04/19/25 10:00 04/19/25 10:10 75 MG Metoprolol Tartrate 25 mg BID PO 04/18/25 22:00 04/19/25 10:10 25 MG Spironolactone 25 mg DAILY PO 04/19/25 10:00 04/19/25 10:10 25 MG Atorvastatin Calcium 40 mg HS PO 04/18/25 22:00 04/18/25 19:51 40 MG Duloxetine HCl 30 mg DAILY PO 04/19/25 10:00 04/19/25 10:10 30 MG laboratory and microbiology Laboratory Tests 04/13/25 04:40 Test 04/13/25 04:40 Range/Units Serum Glucose 117 H 74-106 mg/dL Assessment/Plan copd stable chronic dependency on 02 emphysema previous smoker CAD imaging CXR unremarkable management plan 02 support abx cx withold steroids inc spirometry alb/atr cardiac work up dvt proph full code Dietary Evaluation Review Comments: Monitor PO intake, lab values, weight trend, and I/O Expected Outcomes/Goals: Intake to meet >75% estimated needs FU 3-5 days Plan discussed with: Patient RYNE PEÑA MD Apr 19, 2025 16:55
[2025-04-19] MEDS: MORPHINE SULFATE 4 MG/ML SYR/VIAL IV PRN (17:26)
--- NOTE | 2025-04-19 23:09 | DVHPN2 ---
Progress Note Date Seen: Apr 19, 2025 Medical Necessity Reason Pt with a Central, PICC or Fol: No Objective vital signs Vital Sign Date Time Temp Pulse Resp B/P (MAP) Pulse Ox O2 Delivery O2 Flow Rate FiO2 04/19/25 21:45 66 18 127/64 04/19/25 21:00 97.0 98 97.0 04/19/25 20:00 Nasal Cannula* 2 28 Total Intake and Output 04/18/25 04/18/25 04/19/25 15:00 23:00 07:00 Intake Total 910 ml 400 ml Output Total 500 ml 350 ml Balance 410 ml 50 ml medications Current Medications Medications Dose Ordered Sig/Asha Route Start Time Stop Time Status Last Admin Dose Admin Acetaminophen/ Hydrocodone Bitart 1 tab Q4HP PRN PO 04/12/25 20:15 Hold Ondansetron HCl 4 mg Q4HP PRN IV 04/12/25 20:15 04/19/25 21:51 4 MG Enoxaparin Sodium 40 mg DAILY SC 04/13/25 10:00 04/19/25 10:09 40 MG Acetaminophen 650 mg Q6HP PRN PO 04/12/25 20:15 04/19/25 07:08 650 MG Nitroglycerin 0.4 mg Q5MINP PRN SL 04/12/25 20:15 Morphine Sulfate 2 mg Q30M PRN IV 04/12/25 20:15 Azithromycin 250 ml @ 125 mls/hr DAILY IV 04/16/25 10:00 04/19/25 10:10 125 MLS/HR Ceftriaxone Sodium 50 ml @ 100 mls/hr DAILY@09 IV 04/16/25 09:00 Hold Clopidogrel Bisulfate 75 mg DAILY PO 04/19/25 10:00 04/19/25 10:10 75 MG Metoprolol Tartrate 25 mg BID PO 04/18/25 22:00 04/19/25 21:44 25 MG Spironolactone 25 mg DAILY PO 04/19/25 10:00 04/19/25 10:10 25 MG Atorvastatin Calcium 40 mg HS PO 04/18/25 22:00 04/19/25 21:44 40 MG Duloxetine HCl 30 mg DAILY PO 04/19/25 10:00 04/19/25 10:10 30 MG Morphine Sulfate 2 mg Q4HPRN PRN IV 04/19/25 17:00 04/19/25 21:45 2 MG laboratory and microbiology Laboratory Tests 04/13/25 04:40 Test 04/13/25 04:40 Range/Units Serum Glucose 117 H 74-106 mg/dL Microbiology Date/Time Source Procedure Growth Status 04/17/25 16:24 Nose MRSA Screen - Final Complete 04/15/25 16:04 Voided Urine Urine Culture - Final Complete Labs and/or images reviewed: Labs reviewed by me, Image(s) reviewed by me Problem List/Assessment/Plan Problem List/Assessment/Plan 79 year old female with PMHx of anemia, anxiety, asthma, CAD, CHF, CKF, COPD, CVA, depression, GERD, Gout, HLD, HTN, ME, pacemaker, cardiac stents presents to the ED via EMS with a chief complaint of chest pain onset 3 days. Per EMS, patient had an ME about 3 months ago, had cardiac stents placed at [facility] by Dr. Tidwell. Patient's last discharge from [facility] was on 03/26/25, has been admitted several times due to chest pain. Patient states she has been experiencing substernal chest pain, worsens with palpation, currently rates pain 8/10. In route to ED, EMS was concerned for possible STEMI due to EKG results, upon ED arrival, EKG was done, no STEMI. Denies shortness of breath, nausea, vomiting, diarrhea, headache, dizziness, fever, chills, cough, cold, congestion, numbness/tingling. No other symptoms or modifying factors present at this time. acute chest pain suspected copd exacerbation suspected bacterial PNA weakness CAD with ME CKD CVA depression GERD HLD HTN admitted consult cardiology resuming home HH started on iv abx Plan discussed with: Patient My Orders My Orders Orders - LEANNA BROWN DO Procedure Category Date Status Time Morphine Sulfate PHA 04/19/25 In Process Injection 17:00 Dietary Evaluation Review Comments: Monitor PO intake, lab values, weight trend, and I/O Expected Outcomes/Goals: Intake to meet >75% estimated needs FU 3-5 days LEANNA BROWN DO Apr 19, 2025 23:09
[2025-04-20] VITALS (9 sets, daily range): BP systolic 104–129; BP diastolic 63–90; PULSE 61–70; RESP 16–19; TEMP 36.7; O2SAT 95–99
--- NOTE | 2025-04-20 17:33 | DVHPN2 ---
Progress Note - Dictate Date Seen: Apr 20, 2025 Medical Necessity Reason Pt with a Central, PICC or Fol: No vital signs Vital Sign Date Time Temp Pulse Resp B/P (MAP) Pulse Ox O2 Delivery O2 Flow Rate FiO2 04/20/25 17:00 98.0 70 18 110/66 (81) 97 98.0 04/20/25 08:00 Nasal Cannula* 2 28 Total Intake and Output 04/19/25 04/19/25 04/20/25 14:59 22:59 06:59 Intake Total 840 ml 1200 ml Output Total 250 ml Balance 590 ml 1200 ml medications Current Medications Medications Dose Ordered Sig/Asha Route Start Time Stop Time Status Last Admin Dose Admin Acetaminophen/ Hydrocodone Bitart 1 tab Q4HP PRN PO 04/12/25 20:15 Hold Ondansetron HCl 4 mg Q4HP PRN IV 04/12/25 20:15 04/20/25 06:10 4 MG Enoxaparin Sodium 40 mg DAILY SC 04/13/25 10:00 04/20/25 10:30 40 MG Acetaminophen 650 mg Q6HP PRN PO 04/12/25 20:15 04/19/25 07:08 650 MG Nitroglycerin 0.4 mg Q5MINP PRN SL 04/12/25 20:15 Morphine Sulfate 2 mg Q30M PRN IV 04/12/25 20:15 Azithromycin 250 ml @ 125 mls/hr DAILY IV 04/16/25 10:00 04/20/25 10:28 125 MLS/HR Ceftriaxone Sodium 50 ml @ 100 mls/hr DAILY@09 IV 04/16/25 09:00 Hold Clopidogrel Bisulfate 75 mg DAILY PO 04/19/25 10:00 04/20/25 10:28 75 MG Metoprolol Tartrate 25 mg BID PO 04/18/25 22:00 04/19/25 21:44 25 MG Spironolactone 25 mg DAILY PO 04/19/25 10:00 04/20/25 10:28 25 MG Atorvastatin Calcium 40 mg HS PO 04/18/25 22:00 04/19/25 21:44 40 MG Duloxetine HCl 30 mg DAILY PO 04/19/25 10:00 04/20/25 10:41 30 MG Morphine Sulfate 2 mg Q4HPRN PRN IV 04/19/25 17:00 04/20/25 14:45 2 MG laboratory and microbiology Laboratory Tests 04/13/25 04:40 Test 04/13/25 04:40 Range/Units Serum Glucose 117 H 74-106 mg/dL Assessment/Plan copd stable chronic dependency on 02 emphysema previous smoker CAD events low oxygen requirements on 2 liters nasal cannula no acute events imaging management plan 02 support abx cx withold steroids inc spirometry alb/atr cardiac work up dvt proph full code Dietary Evaluation Review Comments: Monitor PO intake, lab values, weight trend, and I/O Expected Outcomes/Goals: Intake to meet >75% estimated needs FU 3-5 days Plan discussed with: Patient RYNE PEÑA MD Apr 20, 2025 17:33
--- NOTE | 2025-04-21 00:28 | DVHPN2 ---
Progress Note - Dictate Date Seen: Apr 20, 2025 Medical Necessity Reason Pt with a Central, PICC or Fol: No Subjective Patient was seen and evaluated in follow up. Patient has no new complaints at this time. Patient denies any cardiac symptoms. Patient is cardiac stable for discharge. Telemetry reviewed. vital signs Vital Sign Date Time Temp Pulse Resp B/P (MAP) Pulse Ox O2 Delivery O2 Flow Rate FiO2 04/20/25 13:00 97.9 66 18 117/65 (82) 95 97.9 04/19/25 20:00 Nasal Cannula* 2 28 Total Intake and Output 04/19/25 04/19/25 04/20/25 15:00 23:00 07:00 Intake Total 840 ml 1200 ml Output Total 250 ml Balance 590 ml 1200 ml medications Current Medications Medications Dose Ordered Sig/Asha Route Start Time Stop Time Status Last Admin Dose Admin Acetaminophen/ Hydrocodone Bitart 1 tab Q4HP PRN PO 04/12/25 20:15 Hold Ondansetron HCl 4 mg Q4HP PRN IV 04/12/25 20:15 04/20/25 06:10 4 MG Enoxaparin Sodium 40 mg DAILY SC 04/13/25 10:00 04/20/25 10:30 40 MG Acetaminophen 650 mg Q6HP PRN PO 04/12/25 20:15 04/19/25 07:08 650 MG Nitroglycerin 0.4 mg Q5MINP PRN SL 04/12/25 20:15 Morphine Sulfate 2 mg Q30M PRN IV 04/12/25 20:15 Azithromycin 250 ml @ 125 mls/hr DAILY IV 04/16/25 10:00 04/20/25 10:28 125 MLS/HR Ceftriaxone Sodium 50 ml @ 100 mls/hr DAILY@09 IV 04/16/25 09:00 Hold Clopidogrel Bisulfate 75 mg DAILY PO 04/19/25 10:00 04/20/25 10:28 75 MG Metoprolol Tartrate 25 mg BID PO 04/18/25 22:00 04/19/25 21:44 25 MG Spironolactone 25 mg DAILY PO 04/19/25 10:00 04/20/25 10:28 25 MG Atorvastatin Calcium 40 mg HS PO 04/18/25 22:00 04/19/25 21:44 40 MG Duloxetine HCl 30 mg DAILY PO 04/19/25 10:00 04/20/25 10:41 30 MG Morphine Sulfate 2 mg Q4HPRN PRN IV 04/19/25 17:00 04/20/25 10:29 2 MG objective GENERAL: Alert and oriented x 3. No acute distress. EYES: PERRL, EOMI. Anicteric. HENT: Moist mucous membranes. LUNGS: Clear to auscultation bilaterally. CARDIOVASCULAR: Regular rate and rhythm. ABDOMEN: Soft, non-tender and non-distended. EXTREMITIES: No edema. NEUROLOGIC: No focal neurological deficits. SKIN: Warm, dry. laboratory and microbiology Laboratory Tests 04/13/25 04:40 Test 04/13/25 04:40 Range/Units Serum Glucose 117 H 74-106 mg/dL Problem List Acute chest pain. Acute on chronic systolic (congestive) heart failure. Anxiety and depression. Asthma. CAD. COPD. History of CVA. GERD. Gout. HLD. HTN. History of NV with stents. History of pacemaker. Assessment/Plan Continued all current supportive medical care. Plavix. IV antibiotics as ordered. DVT prophylactics. Aldactone. Morphine for pain management. Additional plan as per the hospital course. Dietary Evaluation Review Comments: Monitor PO intake, lab values, weight trend, and I/O Expected Outcomes/Goals: Intake to meet >75% estimated needs FU 3-5 days Plan discussed with: Patient CARLA GUTIERRES MD Apr 20, 2025 13:49
[2025-04-26] MEDS ORDERED: CIPR-173 PO (14:30)
--- NOTE | 2025-04-29 00:41 | DVHDS2 ---
Discharge Summary Date of Admission Apr 12, 2025 at 20:14 Date of Discharge: Apr 20, 2025 Labs/Diagnostic Data: Laboratory Results Test 04/14/25 14:38 04/13/25 04:40 04/12/25 17:05 04/12/25 14:19 POC Glucose 103 mg/dl (70-106) White Blood Count 6.3 10^3/uL (4.4-10.8) Red Blood Count 4.13 10^6/uL (4.0-5.20) Hemoglobin 12.7 g/dL (12.2-16.2) Hematocrit 36.9 % (36.0-46.0) Mean Corpuscular Volume 89.4 fL (80.0-100.0) Mean Corpuscular Hemoglobin 30.7 pg (28.0-32.0) Mean Corpuscular Hemoglobin Concent 34.4 g/dL (32.0-36.0) Red Cell Distribution Width 16.1 % (11.8-14.3) Platelet Count 216 10^3/uL (140-450) Mean Platelet Volume 8.3 fL (6.9-10.8) Neutrophils (%) (Auto) 56.9 % (37.0-80.0) Lymphocytes (%) (Auto) 27.2 % (10.0-50.0) Monocytes (%) (Auto) 12.0 % (0.0-12.0) Eosinophils (%) (Auto) 3.0 % (0.0-7.0) Basophils (%) (Auto) 0.9 % (0.0-2.0) Neutrophils # (Auto) 3.6 10 ^3/uL (1.6-8.6) Lymphocytes # (Auto) 1.7 10 ^3/uL (0.4-5.4) Monocytes # (Auto) 0.7 10 ^3/uL (0-1.3) Eosinophils # (Auto) 0.2 10 ^3/uL (0-0.8) Basophils # (Auto) 0.1 10 ^3/uL (0-0.2) Nucleated Red Blood Cells 0.2 % Sodium Level 144 mmol/L (136-145) Potassium Level 3.6 mmol/L (3.5-5.1) Chloride Level 111 mmol/L (98-107) Carbon Dioxide Level 25 mmol/L (20-31) Anion Gap 8 (5-15) Blood Urea Nitrogen 15 mg/dL (9-23) Creatinine 0.80 mg/dL (0.550-1.02) Glomerular Filtration Rate Calc 74 mL/min (>90) BUN/Creatinine Ratio 18.8 (10.0-20.0) Serum Glucose 117 mg/dL (74-106) Calcium Level 8.9 mg/dL (8.7-10.4) Total Bilirubin 0.5 mg/dL (0.2-1.0) Aspartate Amino Transferase (AST) 18 U/L (13-40) Alanine Aminotransferase (ALT) 9 U/L (7-40) Alkaline Phosphatase 89 U/L (46-116) Total Protein 5.7 g/dL (5.7-8.2) Albumin 3.7 g/dL (3.2-4.8) Troponin I High Sensitivity 28 ng/L (</=34) B-Type Natriuretic Peptide 1107.06 pg/mL (0-100) Other Laboratory Tests 04/13/25 04:40 Brief Hx & Hospital Course: 79 year old female with PMHx of anemia, anxiety, asthma, CAD, CHF, CKF, COPD, CVA, depression, GERD, Gout, HLD, HTN, RI, pacemaker, cardiac stents presents to the ED via EMS with a chief complaint of chest pain onset 3 days. Per EMS, patient had an RI about 3 months ago, had cardiac stents placed at [facility] by Dr. Tidwell. Patient's last discharge from [facility] was on 03/26/25, has been admitted several times due to chest pain. Patient states she has been experiencing substernal chest pain, worsens with palpation, currently rates pain 8/10. In route to ED, EMS was concerned for possible STEMI due to EKG results, upon ED arrival, EKG was done, no STEMI. Denies shortness of breath, nausea, vomiting, diarrhea, headache, dizziness, fever, chills, cough, cold, congestion, numbness/tingling. No other symptoms or modifying factors present at this time. acute chest pain suspected copd exacerbation suspected bacterial PNA weakness CAD with RI CKD CVA depression GERD HLD HTN discharged Condition at Discharge: Fair Final Diagnosis/Problems List CHEST PAIN Discharge Disposition: Assisted Living Facility Discharge Instruct/Medications Diet: Cardiac 2g Na,low cholest Activity: No Restrictions, As Tolerated Scheduled Ascorbic Acid (Vitamin C Tablet), 1 TAB PO BID, (Reported) Aspirin (Aspir-Low), 1 TAB PO DAILY, (Reported) Atorvastatin Calcium (Atorvastatin Calcium), 40 MG PO HS Cholecalciferol (Vitamin D3), 1 TAB PO BID, (Reported) Ciprofloxacin Hcl (Cipro), 250 MG PO BID Ciprofloxacin Hcl (Cipro), 1 TAB PO BID Clopidogrel Bisulfate (Clopidogrel), 75 MG PO DAILY Duloxetine Hydrochloride (Duloxetine Hydrochloride), 30 MG PO DAILY Fluticasone-Salmeterol (Fluticasone Propionate/SA 250-50 Mcg/Dose), 1 PUFF INH BID, (Reported) Levofloxacin Hemihydrate (Levofloxacin), 750 MG PO DAILY Metoprolol Succinate (Metoprolol Succinate Er), 1 TAB PO DAILY Multiple Vitamin (Tab-A-Radha), 1 TAB PO DAILY, (Reported) Oxybutynin Chloride (Oxybutynin Chloride), 5 MG PO Q8HR Oxycodone W/ Acetaminophen (Percocet 5/325MG), 1 TAB PO QID Pantoprazole Sodium Sesquihydr (Pantoprazole Sodium), 1 TAB PO DAILY, (Reported) Phenazopyridine HCl (Eq Urinary Pain Relief Ma), 99.5 MG PO TID Ranolazine (Ranolazine ER), 500 MG PO BID Spironolactone (Aldactone), 25 MG PO DAILY Scheduled PRN Albuterol Sulfate (Albuterol Sulfate Hfa), 2 PUFF INH Q4HPRN PRN for dyspnea, (Reported) Ipratropium-Albuterol (Ipratropium [place]/Albut), 1 VIAL NEB Q6HPRN PRN for SHORTNESS OF BREATH, (Reported) Oxycodone W/ Acetaminophen (Percocet 5/325MG), 1 TAB PO QID PRN Polyethylene Glycol 3350 (Miralax), 17 GM PO DAILY PRN for FOR CONSTIPATION, (Reported) Discharge Statement: "Patient was advised to return to the ER or call 911 if any headaches, dizziness, shortness of breath, chest pain, abdominal pain, bleeding, fevers, or worsening of medical condition. Patient was counseled about treatment plan, medications, possible side effects, patientverbalized understanding. All questions were answered to the best of my ability. This discharge took greater then 30 minutes in planning, reviewing documentation, counseling the patient, and discussing with other team members." ASSESSMENT ASSESSMENT Assessment CHEST PAIN LEANNA BROWN DO Apr 29, 2025 00:41
== END 2025-04-20 23:04 | disposition home or self-care (01) | DRG 193 ==
LOC: EDBD 13:49 → ER 13:49 → OVERFLOW 20:14 → EAST 23:46 → TELE-EAST 04-17 03:34
PROVIDERS: ADMIT Internal Medicine; ATTEND Internal Medicine
PROC: 05H933Z Insertion of Infusion Device into Right Brachial Vein, Percutaneous Approach (ICD-10-PCS; principal; 2025-04-20)
PROC: B54MZZA Ultrasonography of Right Upper Extremity Veins, Guidance (ICD-10-PCS; 2025-04-20)
DX: J15.9 Unspecified bacterial pneumonia (principal); I50.23 Acute on chronic systolic (congestive) heart failure; I13.0 Hypertensive heart and chronic kidney disease with heart failure and stage 1 through stage 4 chronic kidney disease, or unspecified chronic kidney disease; Z99.81 Dependence on supplemental oxygen; Z79.02 Long term (current) use of antithrombotics/antiplatelets; J44.1 Chronic obstructive pulmonary disease with (acute) exacerbation; F32.A Depression, unspecified; N18.9 Chronic kidney disease, unspecified; Z95.1 Presence of aortocoronary bypass graft; E78.5 Hyperlipidemia, unspecified; F41.9 Anxiety disorder, unspecified; K21.9 Gastro-esophageal reflux disease without esophagitis; M10.9 Gout, unspecified; I25.10 Atherosclerotic heart disease of native coronary artery without angina pectoris; J43.9 Emphysema, unspecified; I25.2 Old myocardial infarction; Z86.73 Personal history of transient ischemic attack (TIA), and cerebral infarction without residual deficits; Z88.5 Allergy status to narcotic agent; Z88.1 Allergy status to other antibiotic agents; Z95.5 Presence of coronary angioplasty implant and graft; Z90.710 Acquired absence of both cervix and uterus; Z95.0 Presence of cardiac pacemaker; Z90.49 Acquired absence of other specified parts of digestive tract; Z87.442 Personal history of urinary calculi; Z87.891 Personal history of nicotine dependence; Z82.49 Family history of ischemic heart disease and other diseases of the circulatory system; Z82.3 Family history of stroke; Z83.3 Family history of diabetes mellitus; Z82.61 Family history of arthritis; Z79.899 Other long term (current) drug therapy; Z79.82 Long term (current) use of aspirin
CPT/HCPCS: 36415; 71045; 78452; 80048; 80053; 82962; 83880; 84484; 85025; 87081; 87086; 92610; 93005; 93017; 96374; 97110; 97116; 97163; 97530; 99291; G0378; J2405

== ENCOUNTER 2025-04-21 13:10 | Emergency (ER) | payer OTHER, MEDICAID ==
[~2025-04-21] VITALS: Ht 162.6 cm; Wt 61.8 kg
[2025-04-21 13:32] VITALS: PULSE 60
--- NOTE | 2025-04-21 13:49 | ED.PDOC ---
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 EMS reports on picking the pt up at [facility] from having sternal CP which radiates to the left shoulder associated w/ left flank pain which radiates down the ureter to the groin area and N/V which all started earlier today. Pt notes on being D/C from [facility] yesterday. Pt does have an 8/10 on the pain scale. Pt was given 324 of aspirin and 4mg of Zofran en rout to the ED. Denies any symptoms at this time. Patient denies any SOB, dizziness, numbness, weakness, tingling, fever, chills, or recent fall. 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 MEJIA Hydrocodone (Verified Allergy, Unknown, rash, 05/18/23) tylenol is okay per patient Home Meds Active Scripts Ciprofloxacin Hcl (Cipro) 500 Mg Tab, 1 TAB PO BID, #14 TAB Prov:CHUCK STEWART MD 04/04/25 Ciprofloxacin Hcl (Cipro) 250 Mg Tab, 250 MG PO BID for 5 Days, #10 TAB Prov:YENNY FRAIRE MD 02/09/25 Oxycodone W/ Acetaminophen (Percocet 5/325MG) 1 Tab Tb, 1 TAB PO QID PRN, #20 TAB Prov:YENNY FRAIRE MD 02/09/25 Levofloxacin Hemihydrate (LEVOFLOXACIN) 750 Mg Tab, 750 MG PO DAILY for 5 Days, #5 TAB Prov:PHILL LEAL RESDIENT 01/17/25 Oxycodone W/ Acetaminophen (Percocet 5/325MG) 1 Tab Tb, 1 TAB PO QID, #30 TAB Prov:JANE VEGA MD 09/29/24 Phenazopyridine HCl (Eq Urinary Pain Relief Ma) 99.5 Mg Tab, 99.5 MG PO TID for 10 Days, #30 TAB Prov:ADAMARISMARQUINTONPEBBLESANTONELLA RESDIENT 09/23/24 Metoprolol Succinate (Metoprolol Succinate Er) 25 Mg Tab, 1 TAB PO DAILY for 30 Days, #30 TAB 5 Refills Prov:AXEL CARABALLO RESIDENT 09/06/24 Spironolactone (Aldactone) 25 Mg Tab, 25 MG PO DAILY for 30 Days, #30 TAB Prov:BHARAT MICHELLE RESIDENT 07/22/24 Oxybutynin Chloride (Oxybutynin Chloride) 5 Mg Tab, 5 MG PO Q8HR for 30 Days, #90 TAB Prov:BHARAT MICHELLE RESIDENT 07/22/24 Atorvastatin Calcium (ATORVASTATIN CALCIUM) 20 Mg Tab, 40 MG PO HS for 30 Days, #60 TAB Prov:BHARAT MICHELLE RESIDENT 07/22/24 Duloxetine Hydrochloride (Duloxetine Hydrochloride) 30 Mg Cap, 30 MG PO DAILY for 30 Days, #30 CAP Prov:WINSOME GOMEZ MD 04/29/24 Clopidogrel Bisulfate (CLOPIDOGREL) 75 Mg Tab, 75 MG PO DAILY for 30 Days, #30 TAB 5 Refills Prov:YENNY FRAIRE MD 11/26/23 Ranolazine (Ranolazine ER) 500 Mg Tab, 500 MG PO BID for 30 Days, #60 TAB 2 Refills Prov:RUSSMAGAN RESIDENT 09/16/23 Reported Medications Polyethylene Glycol 3350 (Miralax) 17 Gm Pow, 17 GM PO DAILY PRN for FOR CONST IPATION for 30 Days, #30 01/28/24 Ipratropium-Albuterol (Ipratropium [place]/Albut) 1 Yuli Yuli, 1 VIAL NEB Q6HPRN PRN for SHORTNESS OF BREATH for 13 Days, #180 09/05/23 Fluticasone-Salmeterol (Fluticasone Propionate/SA 250-50 Mcg/Dose) 1 Aer Aer, 1 PUFF INH BID for 30 Days, #60 09/05/23 Albuterol Sulfate (Albuterol Sulfate Hfa) 108 Mcg/Act Aer, 2 PUFF INH Q4HPRN PRN for dyspnea for 17 Days, #18 09/05/23 Cholecalciferol (VITAMIN D3) 2,000 Unit Tab, 1 TAB PO BID for 30 Days, #60 08/28/23 Multiple Vitamin (Tab-A-Radha) Tab, 1 TAB PO DAILY for 30 Days, #30 08/28/23 Aspirin (Aspir-Low) 81 Mg Tab, 1 TAB PO DAILY for 30 Days, #30 08/28/23 Ascorbic Acid (VITAMIN C TABLET) 500 Mg Tb, 1 TAB PO BID for 30 Days, #60 05/18/23 Pantoprazole Sodium Sesquihydr (Pantoprazole Sodium) 40 Mg Tab, 1 TAB PO DAILY 05/18/23 Information Source: Patient, Emergency Med Personnel Mode of Arrival: EMS Severity: Moderate Timing: Hours Duration: Since onset, Hours Prehospital treatment: None Past Medical History PAST MEDICAL HISTORY: Anemia, Anxiety, Asthma, CAD, CHF, CKF, COPD, CVA, Depression, GERD, Gout, High Lipids, HTN, Kidney Stones, MT, UTI'S Surgical History: Appendectomy, CABG, Hysterectomy, Pacemaker, PTCA, 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 History: Ovarian Cysts Family History Family History: Reviewed,noncontributory to illness, Unknown Social History Smoker: Quit Greater Than 1 Year Alcohol: Denies ETOH Use Drugs: Denies Drug Use Lives In: Assisted Care Constitutional: denies: chills, diaphoresis, fatigue, fever, malaise, sweats, weakness, others EENTM: denies: blurred vision, double vision, ear bleeding, ear discharge, ear drainage, ear pain, ear ringing, eye pain, eye redness, hearing loss, mouth pain, mouth swelling, nasal discharge, nose bleeding, nose congestion, nose pain, photophobia, tearing, throat pain, throat swelling, voice changes, others Respiratory: denies: cough, hemoptysis, orthopnea, SOB at rest, shortness of breath, SOB with excertion, stridor, wheezing, others Cardiovascular: reports: chest pain; denies: dizzy spells, diaphoresis, Dyspnea on exertion, edema, irregular heart beat, left arm pain, lightheadedness, palpitations, PND, syncope, others Gastrointestinal: denies: abdomen distended, abdominal pain, blood streaked bowels, constipated, diarrhea, dysphagia, difficulty swallowing, hematemesis, melena, nausea, poor appetite, poor fluid intake, rectal bleeding, rectal pain, vomiting, others Genitourinary: reports: flank pain; denies: abnormal vagina bleeding, burning, dyspareunia, dysuria, frequency, hematuria, incontinence, pain, , vagina discharge, urgency, others Neurological: denies: dizziness, fainting, headache, left sided numbness, left sided weakness, numbness, paresthesia, pre-existing deficit, right sided numbness, right sided weakness, seizure, speech problems, tingling, tremors, weakness, others Musculoskeletal: denies: back pain, gout, joint pain, joint swelling, muscle pain, muscle stiffness, neck pain, others Integumetry: denies: bruises, change in color, change in hair/nails, dryness, laceration, lesions, lumps, rash, wounds, others Allergic/Immunocompromised: denies: Difficulty Healing, Frequent Infections, Hives, Itching, others Hematologic/Lymphatic: denies: anemia, blood clots, easy bleeding, easy bruising, swollen glands, others Endocrine: denies: excessive hunger, excessive sweating, excessive thirst, excessive urination, flushing, intolerance to cold, intolerance to heat, unexplained weight gain, unexplained weight loss, others Psychiatric: denies: anxiety, bipolar disorder, depression, hopeless, panic disorder, schizophrenia, sleepless, suicidal, others All Other Systems: Reviewed and Negative Physical Exam General Appearance: Moderate Distress, Normal HEENT: Normal ENT Inspection, Pharynx Normal, TMs Normal Neck: Full Range of Motion, Non-Tender, Normal, Normal Inspection Respiratory: Chest Non-Tender, Lungs Clear, No Accessory Muscle Use, No Respiratory Distress, Normal Breath Sounds Cardiovascular: No Edema, No JVD, No Murmur, No Gallop, Normal Peripheral Pulses, Regular Rate/Rhythm Breast Exam: Deferred Gastrointestinal: No Organomegaly, Non Tender, No Pulsatile Mass, Normal Bowel Sounds, Soft Genitalia: Deferred Pelvic: Deferred Rectal: Deferred Extremities: No calf tenderness, Normal capillary refill, Normal inspection, Normal range of motion, Non-tender, No pedal edema Musculoskeletal : Apperance: Normal Neurologic: Alert, bilingual trainer II-XII nml as Tested, No Motor Deficits, Normal Affect, Normal Mood, No Sensory Deficits Cerebellar Function: NOT DONE Reflexes: NOT DONE Skin: Dry, Normal Color, Warm Peripheral Pulses: 3+ Radial (R), 3+ Radial (L) Lymphatic: No Adenopathy Was a procedure done? Was a procedure done?: No EKG EKG : Pulse Rate (adult): 76 Comments 1st EKG:Atrial Sensed Ventricular Paced Rythm Differential Dx Considerations may include: Anemia Electrolyte imbalance X-Ray, Labs, Meds, VS Vital Signs Date Time Temp Pulse Resp B/P (MAP) Pulse Ox O2 Delivery O2 Flow Rate FiO2 04/21/25 13:59 61 04/21/25 13:49 76 04/21/25 13:32 60 04/21/25 13:32 98.0 60 16 126/54 (78) 96 98.0 04/21/25 13:20 98.0 69 22 116/59 97 98.0 04/21/25 13:11 76 Lab Test 04/21/25 15:34 04/21/25 14:42 Range/Units Urine Color Pending Urine Clarity Pending Urine pH Pending Urine Specific [place] Pending Urine Protein Pending Urine Ketones Pending Urine Blood Pending Urine Nitrite Pending Urine Bilirubin Pending Urine Urobilinogen Pending Urine Leukocyte Esterase Pending Urine RBC Pending Urine Microscopic WBC Pending Urine Squamous Epithelial Cells Pending Urine Bacteria Pending Urine Glucose Pending White Blood Count 8.0 4.4-10.8 10^3/uL Red Blood Count 4.01 4.0-5.20 10^6/uL Hemoglobin 12.1 L 12.2-16.2 g/dL Hematocrit 36.8 36.0-46.0 % Mean Corpuscular Volume 91.7 80.0-100.0 fL Mean Corpuscular Hemoglobin 30.1 28.0-32.0 pg Mean Corpuscular Hemoglobin Concent 32.8 32.0-36.0 g/dL Red Cell Distribution Width 15.5 H 11.8-14.3 % Platelet Count 175 140-450 10^3/uL Mean Platelet Volume 8.2 6.9-10.8 fL Neutrophils (%) (Auto) 67.1 37.0-80.0 % Lymphocytes (%) (Auto) 19.2 10.0-50.0 % Monocytes (%) (Auto) 9.3 0.0-12.0 % Eosinophils (%) (Auto) 3.8 0.0-7.0 % Basophils (%) (Auto) 0.6 0.0-2.0 % Neutrophils # (Auto) 5.4 1.6-8.6 10 ^3/uL Lymphocytes # (Auto) 1.5 0.4-5.4 10 ^3/uL Monocytes # (Auto) 0.7 0-1.3 10 ^3/uL Eosinophils # (Auto) 0.3 0-0.8 10 ^3/uL Basophils # (Auto) 0 0-0.2 10 ^3/uL Nucleated Red Blood Cells 0.1 % Sodium Level 144 136-145 mmol/L Potassium Level 4.9 3.5-5.1 mmol/L Chloride Level 109 H 98-107 mmol/L Carbon Dioxide Level 30 20-31 mmol/L Anion Gap 5 5-15 Blood Urea Nitrogen 22 9-23 mg/dL Creatinine 0.96 0.550-1.02 mg/dL Glomerular Filtration Rate Calc 60 >90 mL/min BUN/Creatinine Ratio 22.9 H 10.0-20.0 Serum Glucose 87 74-106 mg/dL Calcium Level 9.3 8.7-10.4 mg/dL Troponin I High Sensitivity 25 </=34 ng/L Patient alert. Came in because of chest pain. Vitals stable. Answering all questions. She has been here many times for same symptom. EKG reviewed does not show any acute changes. Spoke with her physician. He wanted the patient to be discharged. Dr. Zuniga is her hospitalist at this hospital. He has a written a note for discharge. Cardiac marker within normal limits. She is chest pain-free. No leg swelling. No shortness a breath. Reviewed her previous visit. Explained to the patient. Was told to follow up with her primary care physician. Was told to come back if there is any problem. Time of 1ST Reevaluation: 14:15 Reevaluation 1ST: Unchanged Patient Education/Counseling: Diagnosis, Treatment, Prognosis Family Education/Counseling: No Family Present SEPSIS Sepsis Screen Date sepsis recognized/suspect: Apr 21, 2025 Time Sepsis recognized/suspect: 1320 Recent Procedure: No On Antibiotic Therapy: No Respiratory Rate >20: No Heart Rate >90: No Temp<36 C (96.8 F) or >38.3 C: No SBP <90 or MAP <65 mmHG: No New Acute Mental Status Change: No Is the patient on CPAP, BIPAP,: No Physician Orders Electrocardigram (04/21/25 14:18) Electrocardigram (04/21/25 16:18) Urinalysis (04/21/25 14:24) Insert Midline (04/21/25 14:40) Vital Signs Date Time Temp Pulse Resp B/P (MAP) Pulse Ox O2 Delivery O2 Flow Rate FiO2 04/21/25 13:59 61 04/21/25 13:49 76 04/21/25 13:32 60 04/21/25 13:32 98.0 60 16 126/54 (78) 96 98.0 04/21/25 13:20 98.0 69 22 116/59 97 98.0 04/21/25 13:11 76 Laboratory Tests Test 04/21/25 14:42 White Blood Count 8.0 10^3/uL (4.4-10.8) Departure 1 Departure Time of Disposition: 14:35 Impression: Primary Impression: Chest pain of unknown etiology Disposition: ADMITTED INPATIENT Admit to: Med Surg Condition: Guarded Critical Care Note Critical Care Time?: Yes (90 min-critical care time only) Stability Stability form required: No Heart Score Heart Score: Heart Score Response (Comments) Value History Slightly Suspicious 0 EKG Normal 0 Age >65 2 Risk Factors >3 or Hx ASHD 2 Troponin Normal limit 0 Total 4 I personally scribed for AURORA RAMIREZ MD ([email or web address]) on 04/21/25 at 13:49. Electronically submitted by Natalio Baugh ([email or web address]). AURORA RAMIREZ MD Apr 21, 2025 13:49
--- NOTE | 2025-04-21 14:02 | ECG ---
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
[2025-04-21 14:57] LABS: Hematocrit 36.8 % (36.0-46.0); Hemoglobin 12.1 g/dL (12.2-16.2); Mean Corpuscular Hemoglobin 30.1 pg (28.0-32.0); Mean Corpuscular Volume 91.7 fL (80.0-100.0); Nucleated Red Blood Cells % 0.1 %
[2025-04-21 15:04] LABS: Potassium 4.9 mmol/L (3.5-5.1); Sodium 144 mmol/L (136-145)
[2025-04-21 15:05] LABS: Anion Gap 5 (5-15); Carbon Dioxide 30 mmol/L (20-31)
[2025-04-21 15:06] LABS: Calcium 9.3 mg/dL (8.7-10.4)
[2025-04-21 15:10] LABS: Glucose 87 mg/dL (74-106)
[2025-04-21 15:11] LABS: BUN/Creatinine Ratio 22.9 (10.0-20.0); Blood Urea Nitrogen 22 mg/dL (9-23)
[2025-04-21 15:25] LABS: Chloride 109 mmol/L (98-107)
[2025-04-21 15:54] LABS: Urine Protein, UAD Negative (Negative)
--- NOTE | 2025-04-21 17:21 | DVHINCON2 ---
Date of service: Apr 21, 2025 Family History: Arthritis Cardiovascular disease G8 MOTHER, Onset:Unknown Cerebrovascular accident (CVA) G8 FATHER Coronary artery disease G8 MOTHER, Onset:Unknown FH: diabetes mellitus G8 MOTHER, Onset:Unknown FH: heart disease G8 MOTHER, Onset:Unknown FH: hypertension G8 MOTHER, Onset:Unknown FH: lupus 19 CHILD FH: myocardial infarction G8 MOTHER, Onset:Unknown Family history: Cardiovascular disease G8 MOTHER, Onset:Unknown G8 FATHER, Onset:Unknown Glaucoma G8 MOTHER, Onset:Unknown Allergies: Coded Allergies: Ceftriaxone (Verified Allergy, Intermediate, generalized rash, 11/08/22) VISUAL AND STOCK ASSOCIATECARLENE MEJIA Hydrocodone (Verified Allergy, Unknown, rash, 05/18/23) tylenol is okay per patient Home Meds Active Scripts Ciprofloxacin Hcl (Cipro) 500 Mg Tab, 1 TAB PO BID, #14 TAB Prov:CHUCK STEWART MD 04/04/25 Ciprofloxacin Hcl (Cipro) 250 Mg Tab, 250 MG PO BID for 5 Days, #10 TAB Prov:YENNY FRAIRE MD 02/09/25 Oxycodone W/ Acetaminophen (Percocet 5/325MG) 1 Tab Tb, 1 TAB PO QID PRN, #20 TAB Prov:YENNY FRAIRE MD 02/09/25 Levofloxacin Hemihydrate (LEVOFLOXACIN) 750 Mg Tab, 750 MG PO DAILY for 5 Days, #5 TAB Prov:PHILL LEAL RESDIENT 01/17/25 Oxycodone W/ Acetaminophen (Percocet 5/325MG) 1 Tab Tb, 1 TAB PO QID, #30 TAB Prov:JANE VEGA MD 09/29/24 Phenazopyridine HCl (Eq Urinary Pain Relief Ma) 99.5 Mg Tab, 99.5 MG PO TID for 10 Days, #30 TAB Prov:PHILL LEAL RESDIENT 09/23/24 Metoprolol Succinate (Metoprolol Succinate Er) 25 Mg Tab, 1 TAB PO DAILY for 30 Days, #30 TAB 5 Refills Prov:AXEL CARABALLO RESIDENT 09/06/24 Spironolactone (Aldactone) 25 Mg Tab, 25 MG PO DAILY for 30 Days, #30 TAB Prov:BHARAT MICHELLE RESIDENT 07/22/24 Oxybutynin Chloride (Oxybutynin Chloride) 5 Mg Tab, 5 MG PO Q8HR for 30 Days, #90 TAB Prov:BHARAT MICHELLE RESIDENT 07/22/24 Atorvastatin Calcium (ATORVASTATIN CALCIUM) 20 Mg Tab, 40 MG PO HS for 30 Days, #60 TAB Prov:BHARAT MICHELLE RESIDENT 07/22/24 Duloxetine Hydrochloride (Duloxetine Hydrochloride) 30 Mg Cap, 30 MG PO DAILY for 30 Days, #30 CAP Prov:WINSOME GOMEZ MD 04/29/24 Clopidogrel Bisulfate (CLOPIDOGREL) 75 Mg Tab, 75 MG PO DAILY for 30 Days, #30 TAB 5 Refills Prov:YENNY FRAIRE MD 11/26/23 Ranolazine (Ranolazine ER) 500 Mg Tab, 500 MG PO BID for 30 Days, #60 TAB 2 Refills Prov:RUSSMAGAN RESIDENT 09/16/23 Reported Medications Polyethylene Glycol 3350 (Miralax) 17 Gm Pow, 17 GM PO DAILY PRN for FOR CONSTIPATION for 30 Days, #30 01/28/24 Ipratropium-Albuterol (Ipratropium [place]/Albut) 1 Yuli Yuli, 1 VIAL NEB Q6HPRN PRN for SHORTNESS OF BREATH for 13 Days, #180 09/05/23 Fluticasone-Salmeterol (Fluticasone Propionate/SA 250-50 Mcg/Dose) 1 Aer Aer, 1 PUFF INH BID for 30 Days, #60 09/05/23 Albuterol Sulfate (Albuterol Sulfate Hfa) 108 Mcg/Act Aer, 2 PUFF INH Q4HPRN PRN for dyspnea for 17 Days, #18 09/05/23 Cholecalciferol (VITAMIN D3) 2,000 Unit Tab, 1 TAB PO BID for 30 Days, #60 08/28/23 Multiple Vitamin (Tab-A-Radha) Tab, 1 TAB PO DAILY for 30 Days, #30 08/28/23 Aspirin (Aspir-Low) 81 Mg Tab, 1 TAB PO DAILY for 30 Days, #30 08/28/23 Ascorbic Acid (VITAMIN C TABLET) 500 Mg Tb, 1 TAB PO BID for 30 Days, #60 05/18/23 Pantoprazole Sodium Sesquihydr (Pantoprazole Sodium) 40 Mg Tab, 1 TAB PO DAILY 05/18/23 Vital Signs Vital Signs Date Time Temp Pulse Resp B/P (MAP) Pulse Ox O2 Delivery O2 Flow Rate FiO2 04/21/25 15:32 97.5 65 18 117/54 (75) 97 97.5 Labs/Diagnostic Data Labs Test 04/21/25 15:34 04/21/25 14:42 Range/Units Urine Color Yellow Yellow Urine Clarity Clear Clear Urine pH 6.5 5.0-9.0 Urine Specific [place] 1.023 1.001-1.035 Urine Protein Negative Negative Urine Ketones Negative Negative Urine Blood Negative Negative /uL Urine Nitrite Negative Negative Urine Bilirubin Negative Negative Urine Urobilinogen Normal Negative mg/dL Urine Leukocyte Esterase Negative Negative /uL Urine RBC 1 0 - 4 /hpf Urine Microscopic WBC < 1 0-5 /HPF Urine Squamous Epithelial Cells Few <5 /hpf Urine Bacteria None seen None Seen /hpf Urine Glucose Normal Normal mg/dL White Blood Count 8.0 4.4-10.8 10^3/uL Red Blood Count 4.01 4.0-5.20 10^6/uL Hemoglobin 12.1 L 12.2-16.2 g/dL Hematocrit 36.8 36.0-46.0 % Mean Corpuscular Volume 91.7 80.0-100.0 fL Mean Corpuscular Hemoglobin 30.1 28.0-32.0 pg Mean Corpuscular Hemoglobin Concent 32.8 32.0-36.0 g/dL Red Cell Distribution Width 15.5 H 11.8-14.3 % Platelet Count 175 140-450 10^3/uL Mean Platelet Volume 8.2 6.9-10.8 fL Neutrophils (%) (Auto) 67.1 37.0-80.0 % Lymphocytes (%) (Auto) 19.2 10.0-50.0 % Monocytes (%) (Auto) 9.3 0.0-12.0 % Eosinophils (%) (Auto) 3.8 0.0-7.0 % Basophils (%) (Auto) 0.6 0.0-2.0 % Neutrophils # (Auto) 5.4 1.6-8.6 10 ^3/uL Lymphocytes # (Auto) 1.5 0.4-5.4 10 ^3/uL Monocytes # (Auto) 0.7 0-1.3 10 ^3/uL Eosinophils # (Auto) 0.3 0-0.8 10 ^3/uL Basophils # (Auto) 0 0-0.2 10 ^3/uL Nucleated Red Blood Cells 0.1 % Sodium Level 144 136-145 mmol/L Potassium Level 4.9 3.5-5.1 mmol/L Chloride Level 109 H 98-107 mmol/L Carbon Dioxide Level 30 20-31 mmol/L Anion Gap 5 5-15 Blood Urea Nitrogen 22 9-23 mg/dL Creatinine 0.96 0.550-1.02 mg/dL Glomerular Filtration Rate Calc 60 >90 mL/min BUN/Creatinine Ratio 22.9 H 10.0-20.0 Serum Glucose 87 74-106 mg/dL Calcium Level 9.3 8.7-10.4 mg/dL Troponin I High Sensitivity 25 </=34 ng/L Assessment I am aware of this pt from [facility]. She often complains of chest pain however, a full work up within the past admission showed no risk of ACS. Pt was admitted recently for >5 days wiithout any issue and was discharged back to [facility]. She often calls 911 to come back to [facility] to be admitted, and often asked for pain meds. pt is stable to be discharged. LEANNA BROWN DO Apr 21, 2025 17:21
[2025-04-21 17:45] VITALS: TEMP 97.6
--- NOTE | 2025-04-21 18:05 | ECG ---
[facility] Test Date: 2025-04-21 Test Time: 13:11:33 Pat Name: MONICA JAMES Department: ED Room: Gender: F Assistant Housekeeping Manager: TRENTON : 1945 Requested By: AURORA RAMIREZ Order Number: [id number] Reading MD: Measurements Intervals [place] Rate: 76 P: 50 ME: 42 QRS: 265 QRSD: 122 T: 106 QT: 439 QTc: 494 Interpretive Statements Atrial-sensed ventricular-paced rhythm No further analysis attempted due to paced rhythm Please click the below link to view image of tracing.
[2025-04-21 20:16] VITALS: BP 114/53
[2025-04-21 20:19] VITALS: PULSE 77; RESP 16; O2SAT 94
== END 2025-04-21 20:15 | disposition home or self-care (01) ==
LOC: ER 13:10 → EDBD 13:10 → ER 20:15
DX: R07.9 Chest pain, unspecified (principal); M25.512 Pain in left shoulder; R10.9 Unspecified abdominal pain; R11.2 Nausea with vomiting, unspecified; I11.0 Hypertensive heart disease with heart failure; I50.9 Heart failure, unspecified; J44.89 Other specified chronic obstructive pulmonary disease; M10.9 Gout, unspecified; Z79.82 Long term (current) use of aspirin; Z79.899 Other long term (current) drug therapy; Z86.73 Personal history of transient ischemic attack (TIA), and cerebral infarction without residual deficits; Z87.440 Personal history of urinary (tract) infections; Z87.442 Personal history of urinary calculi; Z88.1 Allergy status to other antibiotic agents; Z90.49 Acquired absence of other specified parts of digestive tract; Z90.710 Acquired absence of both cervix and uterus; Z95.0 Presence of cardiac pacemaker; Z95.1 Presence of aortocoronary bypass graft; Z88.5 Allergy status to narcotic agent; Z88.6 Allergy status to analgesic agent
CPT/HCPCS: 36415; 80048; 81001; 84484; 85025; 93005

== ENCOUNTER 2025-04-26 11:17 | Emergency (ER) | payer OTHER, MEDICAID ==
[~2025-04-26] VITALS: Ht 162.6 cm; Wt 60.0 kg
--- NOTE | 2025-04-26 11:53 | ED.PDOC ---
History of Present Illness HPI Comments This is an 79-year-old female who comes in with chief complaint of lower abdominal pain. The patient came by EMS. She states that she is currently at a post acute facility secondary to her recent fall. The patient was at [facility] yesterday and diagnosed with a UTI but currently the patient is not on any antibiotics. At this time she states that the pain is a 10/10 in the lower abdominal area. The the patient is having burning on urination. There has been no fever or chills. The patient has been at our facility multiple times and she also states that she was having some mild shortness for breath. She is able to give us her entire medical history. Chief Complaint: Shortness of Breath Time Seen by MD: 11:36 Primary Care Provider: HORTENCIA Reviewed Notes: Nurses Notes, Medications, Allergies (Allergies listed above) Allergies: Coded Allergies: Ceftriaxone (Verified Allergy, Intermediate, generalized rash, 11/08/22) LAMINATOR PRINTED CIRCUIT BOARDSCARLENE MEJIA Hydrocodone (Verified Allergy, Unknown, rash, 05/18/23) tylenol is okay per patient Home Meds Active Scripts Ciprofloxacin Hcl (Cipro) 500 Mg Tab, 1 TAB PO BID, #14 TAB Prov:CHUCK STEWART MD 04/26/25 Ciprofloxacin Hcl (Cipro) 250 Mg Tab, 250 MG PO BID for 5 Days, #10 TAB Prov:YENNY FRAIRE MD 02/09/25 Oxycodone W/ Acetaminophen (Percocet 5/325MG) 1 Tab Tb, 1 TAB PO QID PRN, #20 TAB Prov:YENNY FRAIRE MD 02/09/25 Levofloxacin Hemihydrate (LEVOFLOXACIN) 750 Mg Tab, 750 MG PO DAILY for 5 Days, #5 TAB Prov:PHILL LEAL RESDIENT 01/17/25 Oxycodone W/ Acetaminophen (Percocet 5/325MG) 1 Tab Tb, 1 TAB PO QID, #30 TAB Prov:JANE VEGA MD 09/29/24 Phenazopyridine HCl (Eq Urinary Pain Relief Ma) 99.5 Mg Tab, 99.5 MG PO TID for 10 Days, #30 TAB Prov:PHILL LEAL RESDIENT 09/23/24 Metoprolol Succinate (Metoprolol Succinate Er) 25 Mg Tab, 1 TAB PO DAILY for 30 Days, #30 TAB 5 Refills Prov:AXEL CARABALLO RESIDENT 09/06/24 Spironolactone (Aldactone) 25 Mg Tab, 25 MG PO DAILY for 30 Days, #30 TAB Prov:BHARAT MICHELLE RESIDENT 07/22/24 Oxybutynin Chloride (Oxybutynin Chloride) 5 Mg Tab, 5 MG PO Q8HR for 30 Days, #90 TAB Prov:BHARAT MICHELLE RESIDENT 07/22/24 Atorvastatin Calcium (ATORVASTATIN CALCIUM) 20 Mg Tab, 40 MG PO HS for 30 Days, #60 TAB Prov:BHARAT MICHELLE RESIDENT 07/22/24 Duloxetine Hydrochloride (Duloxetine Hydrochloride) 30 Mg Cap, 30 MG PO DAILY for 30 Days, #30 CAP Prov:WINSOME GOMEZ MD 04/29/24 Clopidogrel Bisulfate (CLOPIDOGREL) 75 Mg Tab, 75 MG PO DAILY for 30 Days, #30 TAB 5 Refills Prov:YENNY FRAIRE MD 11/26/23 Ranolazine (Ranolazine ER) 500 Mg Tab, 500 MG PO BID for 30 Days, #60 TAB 2 Refills Prov:MAGAN RUSS RESIDENT 09/16/23 Reported Medications Polyethylene Glycol 3350 (Miralax) 17 Gm Pow, 17 GM PO DAILY PRN for FOR CONSTIPATION for 30 Days, #30 01/28/24 Ipratropium-Albuterol (Ipratropium [place]/Albut) 1 Yuli Yuli, 1 VIAL NEB Q6HPRN PRN for SHORTNESS OF BREATH for 13 Days, #180 09/05/23 Fluticasone-Salmeterol (Fluticasone Propionate/SA 250-50 Mcg/Dose) 1 Aer Aer, 1 PUFF INH BID for 30 Days, #60 09/05/23 Albuterol Sulfate (Albuterol Sulfate Hfa) 108 Mcg/Act Aer, 2 PUFF INH Q4HPRN PRN for dyspnea for 17 Days, #18 09/05/23 Cholecalciferol (VITAMIN D3) 2,000 Unit Tab, 1 TAB PO BID for 30 Days, #60 08/28/23 Multiple Vitamin (Tab-A-Radha) Tab, 1 TAB PO DAILY for 30 Days, #30 08/28/23 Aspirin (Aspir-Low) 81 Mg Tab, 1 TAB PO DAILY for 30 Days, #30 08/28/23 Ascorbic Acid (VITAMIN C TABLET) 500 Mg Tb, 1 TAB PO BID for 30 Days, #60 05/18/23 Pantoprazole Sodium Sesquihydr (Pantoprazole Sodium) 40 Mg Tab, 1 TAB PO DAILY 05/18/23 Information Source: Patient, Emergency Med Personnel Mode of Arrival: EMS Severity: Moderate Timing: Hours Duration: Since onset Prehospital treatment: None Associated signs and symptoms Lower abdominal pain with nausea Past Medical History PAST MEDICAL HISTORY: Anemia, Anxiety, Asthma, CAD, CHF, CKF, COPD, CVA, De pression, GERD, Gout, High Lipids, HTN, Kidney Stones, MO, UTI'S Surgical History: Appendectomy, CABG, Hysterectomy, Pacemaker, PTCA, 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 DIRECTOR OF SCIENTIFIC RESEARCH History: Ovarian Cysts Family History Family History: Reviewed,noncontributory to illness, Unknown Social History Smoker: Quit Greater Than 1 Year Alcohol: Denies ETOH Use Drugs: Denies Drug Use Lives In: Assisted Care Constitutional: denies: chills, diaphoresis, fatigue, fever, malaise, sweats, weakness, others EENTM: denies: blurred vision, double vision, ear bleeding, ear discharge, ear drainage, ear pain, ear ringing, eye pain, eye redness, hearing loss, mouth pain, mouth swelling, nasal discharge, nose bleeding, nose congestion, nose pain, photophobia, tearing, throat pain, throat swelling, voice changes, others Respiratory: denies: cough, hemoptysis, orthopnea, SOB at rest, shortness of breath, SOB with excertion, stridor, wheezing, others Cardiovascular: denies: chest pain, dizzy spells, diaphoresis, Dyspnea on exertion, edema, irregular heart beat, left arm pain, lightheadedness, palpitations, PND, syncope, others Gastrointestinal: reports: abdominal pain, nausea; denies: abdomen distended, blood streaked bowels, constipated, diarrhea, dysphagia, difficulty swallowing, hematemesis, melena, poor appetite, poor fluid intake, rectal bleeding, rectal pain, vomiting, others Genitourinary: reports: dysuria; denies: abnormal vagina bleeding, burning, dyspareunia, flank pain, frequency, hematuria, incontinence, pain, , vagina discharge, urgency, others Neurological: denies: dizziness, fainting, headache, left sided numbness, left sided weakness, numbness, paresthesia, pre-existing deficit, right sided numbness, right sided weakness, seizure, speech problems, tingling, tremors, weakness, others Musculoskeletal: denies: back pain, gout, joint pain, joint swelling, muscle pain, muscle stiffness, neck pain, others Integumetry: denies: bruises, change in color, change in hair/nails, dryness, laceration, lesions, lumps, rash, wounds, others Allergic/Immunocompromised: denies: Difficulty Healing, Frequent Infections, Hives, Itching, others Hematologic/Lymphatic: denies: anemia, blood clots, easy bleeding, easy bruis ing, swollen glands, others Endocrine: denies: excessive hunger, excessive sweating, excessive thirst, exc essive urination, flushing, intolerance to cold, intolerance to heat, unexplained weight gain, unexplained weight loss, others Psychiatric: denies: anxiety, bipolar disorder, depression, hopeless, panic disorder, schizophrenia, sleepless, suicidal, others Physical Exam General Appearance: Mild Distress HEENT: Normal ENT Inspection, Pharynx Normal, TMs Normal Neck: Full Range of Motion, Non-Tender, Normal, Normal Inspection Respiratory: Chest Non-Tender, Lungs Clear, No Accessory Muscle Use, No Respiratory Distress, Normal Breath Sounds Cardiovascular: No Edema, No JVD, No Murmur, No Gallop, Normal Peripheral Pulses, Regular Rate/Rhythm Breast Exam: Deferred Gastrointestinal: No Organomegaly, No Pulsatile Mass, Normal Bowel Sounds, Soft, Suprapubic, Tenderness Genitalia: Deferred Pelvic: Deferred Rectal: Deferred Extremities: No calf tenderness, Normal capillary refill, Normal inspection, Normal range of motion, Non-tender, No pedal edema Musculoskeletal : Apperance: Normal Neurologic: Alert, cellar hand II-XII nml as Tested, No Motor Deficits, Normal Affect, Normal Mood, No Sensory Deficits Cerebellar Function: Normal Reflexes: Normal Skin: Dry, Normal Color, Warm Lymphatic: No Adenopathy Was a procedure done? Was a procedure done?: No Differential Dx Considerations may include: UTI, generalized weakness, electrolyte imbalance, pyelonephritis X-Ray, Labs, Meds, VS Vital Signs Date Time Temp Pulse Resp B/P (MAP) Pulse Ox O2 Delivery O2 Flow Rate FiO2 04/26/25 14:35 Nasal Cannula* 3 32 04/26/25 14:35 60 18 126/70 (88) 99 04/26/25 14:14 60 18 126/70 04/26/25 11:24 97.6 77 16 123/71 96 97.6 Lab Test 04/26/25 13:32 04/26/25 12:00 Range/Units Urine Color Yellow Yellow Urine Clarity Clear Clear Urine pH 5.5 5.0-9.0 Urine Specific [place] 1.026 1.001-1.035 Urine Protein Negative Negative Urine Ketones Negative Negative Urine Blood Negative Negative /uL Urine Nitrite Negative Negative Urine Bilirubin Negative Negative Urine Urobilinogen Normal Negative mg/dL Urine Leukocyte Esterase 2+ Negative /uL Urine RBC 4 0 - 4 /hpf Urine Microscopic WBC 7 H 0-5 /HPF Urine Squamous Epithelial Cells Few <5 /hpf Urine Transitional Epithelial Cells Few <2 /hpf Urine Bacteria Few H None Seen /hpf Urine Mucus Few None Seen Urine Glucose Normal Normal mg/dL White Blood Count 10.2 # 4.4-10.8 10^3/uL Red Blood Count 4.58 4.0-5.20 10^6/uL Hemoglobin 14.1 # 12.2-16.2 g/dL Hematocrit 41.3 # 36.0-46.0 % Mean Corpuscular Volume 90.1 80.0-100.0 fL Mean Corpuscular Hemoglobin 30.7 28.0-32.0 pg Mean Corpuscular Hemoglobin Concent 34.0 32.0-36.0 g/dL Red Cell Distribution Width 15.8 H 11.8-14.3 % Platelet Count 304 140-450 10^3/uL Mean Platelet Volume 8.3 6.9-10.8 fL Neutrophils (%) (Auto) 69.7 37.0-80.0 % Lymphocytes (%) (Auto) 17.7 10.0-50.0 % Monocytes (%) (Auto) 8.7 0.0-12.0 % Eosinophils (%) (Auto) 3.3 0.0-7.0 % Basophils (%) (Auto) 0.6 0.0-2.0 % Neutrophils # (Auto) 7.1 1.6-8.6 10 ^3/uL Lymphocytes # (Auto) 1.8 0.4-5.4 10 ^3/uL Monocytes # (Auto) 0.9 0-1.3 10 ^3/uL Eosinophils # (Auto) 0.3 0-0.8 10 ^3/uL Basophils # (Auto) 0.1 0-0.2 10 ^3/uL Nucleated Red Blood Cells 0.2 % Sodium Level 146 H 136-145 mmol/L Potassium Level 4.2 3.5-5.1 mmol/L Chloride Level 111 H 98-107 mmol/L Carbon Dioxide Level 27 20-31 mmol/L Anion Gap 8 5-15 Blood Urea Nitrogen 18 9-23 mg/dL Creatinine 0.99 0.550-1.02 mg/dL Glomerular Filtration Rate Calc 58 >90 mL/min BUN/Creatinine Ratio 18.2 10.0-20.0 Serum Glucose 97 74-106 mg/dL Calcium Level 10.0 8.7-10.4 mg/dL Current Medications Medications (Trade) Dose Ordered Sig/Asha Route Start Time Stop Time Status Last Admin Sodium Chloride 500 ml @ 500 mls/hr Q1H ONCE IV 04/26/25 11:45 04/26/25 12:44 DC 04/26/25 14:22 Ondansetron HCl (Zofran) 4 mg ONCE ONCE IV 04/26/25 11:45 04/26/25 11:46 DC 04/26/25 14:13 Morphine Sulfate 4 mg ONCE ONCE IV 04/26/25 11:45 04/26/25 11:46 DC 04/26/25 14:14 IV Hep-Lock was established The patient was given morphine 4 mg IV push The patient was given Zofran 4 mg IV push for the nausea At this time, the patient's urine test is positive for UTI The CBC and chemistry panel are within normal limits The patient is being discharged on Cipro The patient will return to the emergency department's the condition worsens. Time of 1ST Reevaluation: 11:52 Reevaluation 1ST: Unchanged Patient Education/Counseling: Diagnosis, Treatment, Prognosis, Need For Follow Up Family Education/Counseling: No Family Present SEPSIS Sepsis Screen Date sepsis recognized/suspect: Apr 26, 2025 Time Sepsis recognized/suspect: 1125 Recent Procedure: No On Antibiotic Therapy: No Respiratory Rate >20: No Heart Rate >90: No Temp<36 C (96.8 F) or >38.3 C: No SBP <90 or MAP <65 mmHG: No New Acute Mental Status Change: No Is the patient on CPAP, BIPAP,: No Physician Orders Heplock Iv (04/26/25 11:40) Air Cargo Ground Operations Supervisor (04/26/25 11:40) Blood Pressure (04/26/25 11:40) Pulse Oximetry (04/26/25 11:40) Vital Signs Date Time Temp Pulse Resp B/P (MAP) Pulse Ox O2 Delivery O2 Flow Rate FiO2 04/26/25 14:35 Nasal Cannula* 3 32 04/26/25 14:35 60 18 126/70 (88) 99 04/26/25 14:14 60 18 126/70 04/26/25 11:24 97.6 77 16 123/71 96 97.6 Laboratory Tests Test 04/26/25 12:00 White Blood Count 10.2 10^3/uL (4.4-10.8) # Medications Medications Dose Ordered Sig/Asha Route Start Time Stop Time Status Last Admin Dose Admin Morphine Sulfate 4 mg ONCE ONCE IV 04/26/25 11:45 04/26/25 11:46 DC 04/26/25 14:14 Ondansetron HCl 4 mg ONCE ONCE IV 04/26/25 11:45 04/26/25 11:46 DC 04/26/25 14:13 Sodium Chloride 500 ml @ 500 mls/hr Q1H ONCE IV 04/26/25 11:45 04/26/25 12:44 DC 04/26/25 14:22 Departure 1 Departure Time of Disposition: 15:08 Impression: Primary Impression: Abdominal pain Qualified Codes: R10.9 - Unspecified abdominal pain Additional Impression: UTI (urinary tract infection) Qualified Codes: N30.00 - Acute cystitis without hematuria Disposition: 01 HOME / SELF CARE / HOMELESS Condition: Fair e-Prescriptions Ciprofloxacin Hcl (Cipro) 500 Mg Tab 1 TAB PO BID, #14 TAB Prov: CHUCK STEWART MD 04/26/25 Discharged With: Self Critical Care Note Critical Care Time?: No Stability Stability form required: Yes Unstable for transfer: ED Physician Assesment (Clinical assesment) Heart Score Heart Score: Heart Score Response (Comments) Value History N/A 0 EKG N/A 0 Age N/A 0 Risk Factors N/A 0 Troponin N/A 0 Total 0 CHUCK STEWART MD Apr 26, 2025 11:53
[2025-04-26 12:39] LABS: Hematocrit 41.3 % (36.0-46.0); Hemoglobin 14.1 g/dL (12.2-16.2); Mean Corpuscular Hemoglobin 30.7 pg (28.0-32.0); Mean Corpuscular Volume 90.1 fL (80.0-100.0); Nucleated Red Blood Cells % 0.2 %
[2025-04-26 12:50] LABS: Potassium 4.2 mmol/L (3.5-5.1)
[2025-04-26 12:51] LABS: Anion Gap 8 (5-15); Carbon Dioxide 27 mmol/L (20-31)
[2025-04-26 12:52] LABS: Calcium 10.0 mg/dL (8.7-10.4)
[2025-04-26 12:56] LABS: Glucose 97 mg/dL (74-106)
[2025-04-26 12:57] LABS: BUN/Creatinine Ratio 18.2 (10.0-20.0); Blood Urea Nitrogen 18 mg/dL (9-23)
[2025-04-26 12:59] LABS: Chloride 111 mmol/L (98-107); Sodium 146 mmol/L (136-145)
[2025-04-26] MEDS: ONDANSETRON HCL 4 MG/2 ML VIAL IV ONE (14:13)
[2025-04-26] MEDS: MORPHINE SULFATE 4 MG/ML SYR/VIAL IV ONE (14:14)
[2025-04-26 14:20] LABS: Urine Protein, UAD Negative (Negative)
[2025-04-26] MEDS: SODIUM CHLORIDE 0.9% 500 ML IV ONE (14:22)
[2025-04-26 15:28] VITALS: TEMP 98.3; O2SAT 94
[2025-04-26] MEDS: HYDROmorphone HCL 2 MG/ML VL/or syr IM ONE (18:42)
[2025-04-26] MEDS: ONDANSETRON HCL 4 MG/2 ML VIAL IM ONE (18:43)
[2025-04-26 19:08] VITALS: BP 122/89; PULSE 78; RESP 16
== END 2025-04-26 15:05 | disposition home or self-care (01) ==
LOC: EDBD 11:17 → ER 11:17
DX: N39.0 Urinary tract infection, site not specified (principal); I13.0 Hypertensive heart and chronic kidney disease with heart failure and stage 1 through stage 4 chronic kidney disease, or unspecified chronic kidney disease; E11.22 Type 2 diabetes mellitus with diabetic chronic kidney disease; N18.9 Chronic kidney disease, unspecified; I50.9 Heart failure, unspecified; F41.9 Anxiety disorder, unspecified; F32.A Depression, unspecified; D64.9 Anemia, unspecified; E78.5 Hyperlipidemia, unspecified; M10.9 Gout, unspecified; Z79.82 Long term (current) use of aspirin; Z79.899 Other long term (current) drug therapy; Z86.73 Personal history of transient ischemic attack (TIA), and cerebral infarction without residual deficits; Z87.440 Personal history of urinary (tract) infections; Z87.442 Personal history of urinary calculi; Z88.1 Allergy status to other antibiotic agents; Z88.5 Allergy status to narcotic agent; Z88.6 Allergy status to analgesic agent; Z90.49 Acquired absence of other specified parts of digestive tract; Z90.710 Acquired absence of both cervix and uterus; Z95.0 Presence of cardiac pacemaker; Z95.1 Presence of aortocoronary bypass graft
CPT/HCPCS: 36415; 80048; 81001; 85025; 96372; 96374; 96375; 99285; J1171; J2270; J2405; J7040

== ENCOUNTER 2025-05-06 05:54 | Outpatient (CLI) | payer OTHER, MEDICAID | END 2025-05-06 17:00 | disposition home or self-care (01) | LOC: LAB 05:54 | PROVIDERS: ATTEND Internal Medicine | DX: N39.0 Urinary tract infection, site not specified (principal) | CPT/HCPCS: 87086 ==

== ENCOUNTER 2025-05-07 08:17 | Emergency (ER) | payer OTHER, MEDICAID ==
[~2025-05-07] VITALS: Ht 165.1 cm; Wt 81.1 kg
--- NOTE | 2025-05-07 08:38 | ED.PDOC ---
History of Present Illness HPI Comments An 79 year-old female, with a Hx of Anxiety, Asthma, CHF, COPD, CVA, HTN, and IN presents to the ED via EMS for cough, chest wall pain, and sore throat for X2 days. Patient has no further complaints or modifying factors at this time. Patient denies symptoms of SOB, palpitations, hemoptysis, L sided weakness /numbness, fever, or chills. 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 Hydrocodone (Verified Allergy, Unknown, rash, 05/18/23) tylenol is okay per patient Home Meds Active Scripts Ciprofloxacin Hcl (Cipro) 500 Mg Tab, 1 TAB PO BID, #14 TAB Prov:CHUCK STEWART MD 04/26/25 Ciprofloxacin Hcl (Cipro) 250 Mg Tab, 250 MG PO BID for 5 Days, #10 TAB Prov:YENNY FRAIRE MD 02/09/25 Oxycodone W/ Acetaminophen (Percocet 5/325MG) 1 Tab Tb, 1 TAB PO QID PRN, #20 TAB Prov:YENNY FRAIRE MD 02/09/25 Levofloxacin Hemihydrate (LEVOFLOXACIN) 750 Mg Tab, 750 MG PO DAILY for 5 Days, #5 TAB Prov:PHILL LEAL RESDIENT 01/17/25 Oxycodone W/ Acetaminophen (Percocet 5/325MG) 1 Tab Tb, 1 TAB PO QID, #30 TAB Prov:JAEN VEGA MD 09/29/24 Phenazopyridine HCl (Eq Urinary Pain Relief Ma) 99.5 Mg Tab, 99.5 MG PO TID for 10 Days, #30 TAB Prov:PHILL LEAL RESDIENT 09/23/24 Metoprolol Succinate (Metoprolol Succinate Er) 25 Mg Tab, 1 TAB PO DAILY for 30 Days, #30 TAB 5 Refills Prov:AXEL CARABALLO RESIDENT 09/06/24 Spironolactone (Aldactone) 25 Mg Tab, 25 MG PO DAILY for 30 Days, #30 TAB Prov:BHARAT MICHELLE RESIDENT 07/22/24 Oxybutynin Chloride (Oxybutynin Chloride) 5 Mg Tab, 5 MG PO Q8HR for 30 Days, #90 TAB Prov:BHARAT MICHELLE RESIDENT 07/22/24 Atorvastatin Calcium (ATORVASTATIN CALCIUM) 20 Mg Tab, 40 MG PO HS for 30 Days, #60 TAB Prov:BHARAT MICHELLE RESIDENT 07/22/24 Duloxetine Hydrochloride (Duloxetine Hydrochloride) 30 Mg Cap, 30 MG PO DAILY for 30 Days, #30 CAP Prov:WINSOME GOMEZ MD 04/29/24 Clopidogrel Bisulfate (CLOPIDOGREL) 75 Mg Tab, 75 MG PO DAILY for 30 Days, #30 TAB 5 Refills Prov:YENNY FRAIRE MD 11/26/23 Ranolazine (Ranolazine ER) 500 Mg Tab, 500 MG PO BID for 30 Days, #60 TAB 2 Refills Prov:RUSSMAGAN RESIDENT 09/16/23 Reported Medications Polyethylene Glycol 3350 (Miralax) 17 Gm Pow, 17 GM PO DAILY PRN for FOR CONSTIPATION for 30 Days, #30 01/28/24 Ipratropium-Albuterol (Ipratropium [place]/Albut) 1 [place], 1 VIAL NEB Q6HPRN PRN for SHORTNESS OF BREATH for 13 Days, #180 09/05/23 Fluticasone-Salmeterol (Fluticasone Propionate/SA 250-50 Mcg/Dose) 1 Aer Aer, 1 PUFF INH BID for 30 Days, #60 09/05/23 Albuterol Sulfate (Albuterol Sulfate Hfa) 108 Mcg/Act Aer, 2 PUFF INH Q4HPRN PRN for dyspnea for 17 Days, #18 09/05/23 Cholecalciferol (VITAMIN D3) 2,000 Unit Tab, 1 TAB PO BID for 30 Days, #60 08/28/23 Multiple Vitamin (Tab-A-Radha) Tab, 1 TAB PO DAILY for 30 Days, #30 08/28/23 Aspirin (Aspir-Low) 81 Mg Tab, 1 TAB PO DAILY for 30 Days, #30 08/28/23 Ascorbic Acid (VITAMIN C TABLET) 500 Mg Tb, 1 TAB PO BID for 30 Days, #60 05/18/23 Pantoprazole Sodium Sesquihydr (Pantoprazole Sodium) 40 Mg Tab, 1 TAB PO DAILY 05/18/23 Information Source: Patient, Emergency Med Personnel Mode of Arrival: EMS Severity: Mild Timing: Days Duration: Since onset Associated signs and symptoms chest wall pain, sore throat, cough Past Medical History PAST MEDICAL HISTORY: Anemia, Anxiety, Asthma, CAD, CHF, CKF, COPD, CVA, Depression, GERD, Gout, High Lipids, HTN, Kidney Stones, IN, UTI'S Surgical History: Appendectomy, CABG, Hysterectomy, Pacemaker, PTCA, Tonsillect william 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 Family History Family History: Reviewed,noncontributory to illness, Unknown Social History Smoker: Quit Greater Than 1 Year Alcohol: Denies ETOH Use Drugs: Denies Drug Use Lives In: Assisted Care Constitutional: denies: chills, diaphoresis, fatigue, fever, malaise, sweats, weakness, others EENTM: reports: throat pain; denies: blurred vision, double vision, ear bleeding, ear discharge, ear drainage, ear pain, ear ringing, eye pain, eye redness, hearing loss, mouth pain, mouth swelling, nasal discharge, nose ble eding, nose congestion, nose pain, photophobia, tearing, throat swelling, voice changes, others Respiratory: reports: cough; denies: hemoptysis, orthopnea, SOB at rest, shortness of breath, SOB with excertion, stridor, wheezing, others Cardiovascular: reports: chest pain; denies: dizzy spells, diaphoresis, Dyspnea on exertion, edema, irregular heart beat, left arm pain, lightheadedness, palpitations, PND, syncope, others Gastrointestinal: denies: abdomen distended, abdominal pain, blood streaked bowels, constipated, diarrhea, dysphagia, difficulty swallowing, hematemesis, melena, nausea, poor appetite, poor fluid intake, rectal bleeding, rectal pain, vomiting, others Genitourinary: denies: abnormal vagina bleeding, burning, dyspareunia, dysuria, flank pain, frequency, hematuria, incontinence, pain, , vagina discharge, urgency, others Neurological: denies: dizziness, fainting, headache, left sided numbness, left sided weakness, numbness, paresthesia, pre-existing deficit, right sided numbness, right sided weakness, seizure, speech problems, tingling, tremors, weakness, others Musculoskeletal: denies: back pain, gout, joint pain, joint swelling, muscle pain, muscle stiffness, neck pain, others Integumetry: denies: bruises, change in color, change in hair/nails, dryness, laceration, lesions, lumps, rash, wounds, others Allergic/Immunocompromised: denies: Difficulty Healing, Frequent Infections, Hives, Itching, others Hematologic/Lymphatic: denies: anemia, blood clots, easy bleeding, easy bruising, swollen glands, others Endocrine: denies: excessive hunger, excessive sweating, excessive thirst, excessive urination, flushing, intolerance to cold, intolerance to heat, unexplained weight gain, unexplained weight loss, others Psychiatric: denies: anxiety, bipolar disorder, depression, hopeless, panic disorder, schizophrenia, sleepless, suicidal, others All Other Systems: Reviewed and Negative Physical Exam General Appearance: Mild Distress, Obese HEENT: Normal ENT Inspection Neck: Non-Tender, Normal, Normal Inspection Respiratory: No Respiratory Distress, Normal Breath Sounds Cardiovascular: No Edema, No JVD, No Murmur, No Gallop, Normal Peripheral Pulses, Regular Rate/Rhythm Breast Exam: Deferred Gastrointestinal: No Organomegaly, Non Tender, No Pulsatile Mass, Normal Bowel Sounds, Soft Genitalia: Deferred Pelvic: Deferred Rectal: Deferred Extremities: No calf tenderness, Normal capillary refill, Normal inspection, Normal range of motion, Non-tender, No pedal edema Musculoskeletal : Apperance: Normal Neurologic: Alert, No Motor Deficits, Normal Affect, Normal Mood, No Sensory Deficits Cerebellar Function: Normal Reflexes: Normal Skin: Dry, Normal Color, Warm Lymphatic: No Adenopathy Was a procedure done? Was a procedure done?: No Differential Dx Considerations may include: Viral Syndrome, Pneumonia, Anxiety, Pharyngitis X-Ray, Labs, Meds, VS Vital Signs Date Time Temp Pulse Resp B/P (MAP) Pulse Ox O2 Delivery O2 Flow Rate FiO2 05/07/25 08:40 98.4 65 14 115/57 (76) 92 98.4 05/07/25 08:31 98.9 88 15 128/89 100 98.9 05/07/25 08:18 70 Lab Test 05/07/25 08:53 Range/Units White Blood Count 9.1 4.4-10.8 10^3/uL Red Blood Count 4.86 4.0-5.20 10^6/uL Hemoglobin 14.5 12.2-16.2 g/dL Hematocrit 43.9 36.0-46.0 % Mean Corpuscular Volume 90.5 80.0-100.0 fL Mean Corpuscular Hemoglobin 29.9 28.0-32.0 pg Mean Corpuscular Hemoglobin Concent 33.1 32.0-36.0 g/dL Red Cell Distribution Width 15.9 H 11.8-14.3 % Platelet Count 277 140-450 10^3/uL Mean Platelet Volume 8.0 6.9-10.8 fL Neutrophils (%) (Auto) 65.5 37.0-80.0 % Lymphocytes (%) (Auto) 22.2 10.0-50.0 % Monocytes (%) (Auto) 7.8 0.0-12.0 % Eosinophils (%) (Auto) 3.7 0.0-7.0 % Basophils (%) (Auto) 0.8 0.0-2.0 % Neutrophils # (Auto) 6.0 1.6-8.6 10 ^3/uL Lymphocytes # (Auto) 2.0 0.4-5.4 10 ^3/uL Monocytes # (Auto) 0.7 0-1.3 10 ^3/uL Eosinophils # (Auto) 0.3 0-0.8 10 ^3/uL Basophils # (Auto) 0.1 0-0.2 10 ^3/uL Nucleated Red Blood Cells 0.0 % Sodium Level 144 136-145 mmol/L Potassium Level 4.5 3.5-5.1 mmol/L Chloride Level 112 H 98-107 mmol/L Carbon Dioxide Level 25 20-31 mmol/L Anion Gap 7 5-15 Blood Urea Nitrogen 15 9-23 mg/dL Creatinine 1.05 H 0.550-1.02 mg/dL Glomerular Filtration Rate Calc 54 >90 mL/min BUN/Creatinine Ratio 14.3 10.0-20.0 Serum Glucose 93 74-106 mg/dL Calcium Level 9.5 8.7-10.4 mg/dL Troponin I High Sensitivity 30 </=34 ng/L B-Type Natriuretic Peptide Pending Time of 1ST Reevaluation: 09:26 Reevaluation 1ST: Unchanged Patient Education/Counseling: Diagnosis, Treatment Family Education/Counseling: No Family Present SEPSIS Sepsis Screen Physician Orders B-Type Natriuretic Peptide (05/07/25 08:29) Chest Portable (05/07/25 08:29) Electrocardigram (05/07/25 08:29) Troponin-I Hs (05/07/25 09:29) Troponin-I Hs (05/07/25 11:29) Electrocardigram (05/07/25 09:29) Electrocardigram (05/07/25 11:29) Vital Signs Date Time Temp Pulse Resp B/P (MAP) Pulse Ox O2 Delivery O2 Flow Rate FiO2 05/07/25 08:40 98.4 65 14 115/57 (76) 92 98.4 05/07/25 08:31 98.9 88 15 128/89 100 98.9 05/07/25 08:18 70 Laboratory Tests Test 05/07/25 08:53 White Blood Count 9.1 10^3/uL (4.4-10.8) Departure 1 Departure Time of Disposition: 09:25 (Patient presented with chest pain that was concerning for possible STEMI, ACS, PE, Pneumonia, Muscle Strain, COPD, Dissection. Data: 1. I ordered and reviewed the result of at least 3 labs including a CBC, BMP, and Troponin. 2. I independently interpreted the following tests: EKG which shows sinus arrhythmia and Chest X-ray which shows benign chest.Risk:This patient has a high risk of morbidity due to further diagnostic testing or treatment and may suffer from an acute cardiac or respiratory disorder. Workup reveals concern for ACS and patient should be admitted for further workup and possible expert consultation. ) Impression: Primary Impression: Acute chest pain Additional Impression: Cough Disposition: ADMITTED INPATIENT Admit to: Tele Condition: Guarded Critical Care Note Critical Care Time?: No Stability Stability form required: No Heart Score Heart Score: Heart Score Response (Comments) Value History N/A 0 EKG N/A 0 Age N/A 0 Risk Factors N/A 0 Troponin N/A 0 Total 0 I personally scribed for BRANDO SANCHEZ MD ([email or web address]) on 05/07/25 at 08:38. Electronically submitted by Lisa Seg[employer]). BRANDO SANCHEZ MD May 07, 2025 08:38
[2025-05-07 08:40] VITALS: PULSE 69; RESP 16; TEMP 98.4; O2SAT 94
[2025-05-07 09:12] LABS: Hematocrit 43.9 % (36.0-46.0); Hemoglobin 14.5 g/dL (12.2-16.2); Mean Corpuscular Hemoglobin 29.9 pg (28.0-32.0); Mean Corpuscular Volume 90.5 fL (80.0-100.0); Nucleated Red Blood Cells % 0.0 %
[2025-05-07 09:13] LABS: Anion Gap 7 (5-15); Carbon Dioxide 25 mmol/L (20-31); Potassium 4.5 mmol/L (3.5-5.1); Sodium 144 mmol/L (136-145)
[2025-05-07 09:14] LABS: Calcium 9.5 mg/dL (8.7-10.4); Chloride 112 mmol/L (98-107)
[2025-05-07 09:19] LABS: BUN/Creatinine Ratio 14.3 (10.0-20.0); Blood Urea Nitrogen 15 mg/dL (9-23); Glucose 93 mg/dL (74-106)
--- NOTE | 2025-05-07 09:20 | DVH ---
CHEST RADIOGRAPH Indication: cp, cough Technique: Single frontal view of the chest was obtained COMPARISON: XY CHEST PORTABLE on DOS: 04/12/25, XY CHEST PORTABLE on DOS: 03/17/25, XY CHEST XRAY 1 VIEW on DOS: 02/13/25, XY CHEST XRAY 1 VIEW on DOS: 02/05/25, XY CHEST PORTABLE on DOS: 01/14/25 FINDINGS: Lines and Tubes: Left chest pacemaker. Lungs: Congestion. Pleura: Small left pleural effusion. No pneumothorax. Cardiomediastinal contours: Median sternotomy. Cardiomegaly. Bones: Unremarkable IMPRESSION: Cardiomegaly and pulmonary vascular congestion. Small left pleural effusion.
--- NOTE | 2025-05-07 10:08 | ED.PDOC ---
Departure 1 Departure Time of Disposition: 09:25 (Discussed with the case with the patient's physician at the retirement. Dr. Zuniga recommends discharging home and he will continue to follow up with the patient at the facility.) Impression: Primary Impression: Acute chest pain Additional Impressions: Cough Viral syndrome Disposition: 01 HOME / SELF CARE / HOMELESS Condition: Stable BRANDO SANCHEZ MD May 07, 2025 10:08
[2025-05-07] MEDS: FUROSEMIDE 40 MG TAB PO ONE (10:26)
[2025-05-07 11:17] VITALS: O2SAT 96
[2025-05-07] MEDS: MORPHINE SULFATE 4 MG/ML SYR/VIAL IV ONE (11:34)
[2025-05-07] MEDS: ONDANSETRON HCL 4 MG/2 ML VIAL IV ONE (11:35)
[2025-05-07 12:13] VITALS: BP 118/50; PULSE 61; RESP 18
--- NOTE | 2025-05-09 10:06 | ECG ---
[facility] Test Date: 2025-05-07 Test Time: 08:18:57 Pat Name: MONICA JAMES Department: ED Room: Gender: F Legal Specialist: JOHNSON : 1945 Requested By: BRANDO SANCHEZ Order Number: [id number] Reading MD: Adair Mijares Measurements Intervals [place] Rate: 70 P: 51 NM: 176 QRS: 268 QRSD: 141 T: 94 QT: 406 QTc: 439 Interpretive Statements Atrial-sensed ventricular-paced complexes No further analysis attempted due to paced rhythm Artifact in lead(s) I,III,aVR,aVL,aVF Electronically Signed On 05-13-2025 8:26:59 PST by Adair Mijares Please click the below link to view image of tracing.
--- NOTE | 2025-05-09 10:06 | ECG ---
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
== END 2025-05-07 14:47 | disposition home or self-care (01) ==
LOC: EDBD 08:17 → ER 08:17
DX: R07.89 Other chest pain (principal); R05.9 Cough, unspecified; Z79.899 Other long term (current) drug therapy; Z95.1 Presence of aortocoronary bypass graft; Z90.710 Acquired absence of both cervix and uterus; Z90.49 Acquired absence of other specified parts of digestive tract; Z88.6 Allergy status to analgesic agent; Z88.5 Allergy status to narcotic agent; Z88.1 Allergy status to other antibiotic agents; Z86.73 Personal history of transient ischemic attack (TIA), and cerebral infarction without residual deficits
CPT/HCPCS: 36415; 71045; 80048; 83880; 84484; 85025; 93005; 96374; 96375; 99285; J2270; J2405

== ENCOUNTER 2025-05-09 05:52 | Emergency (ER) | payer OTHER, MEDICAID ==
[~2025-05-09] VITALS: Ht 162.6 cm; Wt 63.5 kg
[2025-05-09 06:20] VITALS: O2SAT 95
[2025-05-09 06:31] LABS: Hematocrit 39.3 % (36.0-46.0); Hemoglobin 13.1 g/dL (12.2-16.2); Mean Corpuscular Hemoglobin 30.2 pg (28.0-32.0); Mean Corpuscular Volume 90.6 fL (80.0-100.0); Nucleated Red Blood Cells % 0.0 %
--- NOTE | 2025-05-09 06:35 | ED.PDOC ---
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 Patient reports to the ER via EMS due from able to feel her pacemaker firing. Patient was here on 05/07/2025 for acute chest pain. In route EMS gave the patient 324 mg of aspirin. Denies any other symptoms at this time. Denies chills, fever, N/V/D, SOB. No other associated symptoms, modifiers, recent injuries or sick contacts present at this time. Chief Complaint: Chest Pain Time Seen by MD: 06:30 Primary Care Provider: HORTENCIA Reviewed Notes: Nurses Notes, Medications, Allergies Allergies: Coded Allergies: Ceftriaxone (Verified Allergy, Intermediate, generalized rash, 11/08/22) RECRUITING INTERN OMEGA MEJIA Hydrocodone (Verified Allergy, Unknown, rash, 05/18/23) tylenol is okay per patient Home Meds Active Scripts Ciprofloxacin Hcl (Cipro) 500 Mg Tab, 1 TAB PO BID, #14 TAB Prov:CHUCK STEWART MD 04/26/25 Ciprofloxacin Hcl (Cipro) 250 Mg Tab, 250 MG PO BID for 5 Days, #10 TAB Prov:YENNY FRAIRE MD 02/09/25 Oxycodone W/ Acetaminophen (Percocet 5/325MG) 1 Tab Tb, 1 TAB PO QID PRN, #20 TAB Prov:YENNY FRAIRE MD 02/09/25 Levofloxacin Hemihydrate (LEVOFLOXACIN) 750 Mg Tab, 750 MG PO DAILY for 5 Days, #5 TAB Prov:PHILL LEAL RESDIENT 01/17/25 Oxycodone W/ Acetaminophen (Percocet 5/325MG) 1 Tab Tb, 1 TAB PO QID, #30 TAB Prov:JANE VEGA MD 09/29/24 Phenazopyridine HCl (Eq Urinary Pain Relief Ma) 99.5 Mg Tab, 99.5 MG PO TID for 10 Days, #30 TAB Prov:PHILL LEAL RESDIENT 4/30/25 Metoprolol Succinate (Metoprolol Succinate Er) 25 Mg Tab, 1 TAB PO DAILY for 30 Days, #30 TAB 5 Refills Prov:AXEL CARABALLO RESIDENT 09/06/24 Spironolactone (Aldactone) 25 Mg Tab, 25 MG PO DAILY for 30 Days, #30 TAB Prov:BHARAT MICHELLE RESIDENT 07/22/24 Oxybutynin Chloride (Oxybutynin Chloride) 5 Mg Tab, 5 MG PO Q8HR for 30 Days, #90 TAB Prov:BHARAT MICHELLE RESIDENT 07/22/24 Atorvastatin Calcium (ATORVASTATIN CALCIUM) 20 Mg Tab, 40 MG PO HS for 30 Days, #60 TAB Prov:BHARAT MICHELLE RESIDENT 07/22/24 Duloxetine Hydrochloride (Duloxetine Hydrochloride) 30 Mg Cap, 30 MG PO DAILY for 30 Days, #30 CAP Prov:WINSOME GOMEZ MD 04/29/24 Clopidogrel Bisulfate (CLOPIDOGREL) 75 Mg Tab, 75 MG PO DAILY for 30 Days, #30 TAB 5 Refills Prov:YENNY FRAIRE MD 11/26/23 Ranolazine (Ranolazine ER) 500 Mg Tab, 500 MG PO BID for 30 Days, #60 TAB 2 Refills Prov:MAGAN RUSS RESIDENT 09/16/23 Reported Medications Polyethylene Glycol 3350 (Miralax) 17 Gm Pow, 17 GM PO DAILY PRN for FOR CONSTIPATION for 30 Days, #30 01/28/24 Ipratropium-Albuterol (Ipratropium [place]/Albut) 1 [place], 1 VIAL NEB Q6HPRN PRN for SHORTNESS OF BREATH for 13 Days, #180 09/05/23 Fluticasone-Salmeterol (Fluticasone Propionate/SA 250-50 Mcg/Dose) 1 Aer Aer, 1 PUFF INH BID for 30 Days, #60 09/05/23 Albuterol Sulfate (Albuterol Sulfate Hfa) 108 Mcg/Act Aer, 2 PUFF INH Q4HPRN PRN for dyspnea for 17 Days, #18 09/05/23 Cholecalciferol (VITAMIN D3) 2,000 Unit Tab, 1 TAB PO BID for 30 Days, #60 08/28/23 Multiple Vitamin (Tab-A-Radha) Tab, 1 TAB PO DAILY for 30 Days, #30 08/28/23 Aspirin (Aspir-Low) 81 Mg Tab, 1 TAB PO DAILY for 30 Days, #30 08/28/23 Ascorbic Acid (VITAMIN C TABLET) 500 Mg Tb, 1 TAB PO BID for 30 Days, #60 05/18/23 Pantoprazole Sodium Sesquihydr (Pantoprazole Sodium) 40 Mg Tab, 1 TAB PO DAILY 05/18/23 Information Source: Patient Mode of Arrival: EMS Severity: Moderate Timing: Hours Duration: Since onset, Hours Prehospital treatment: None Past Medical History PAST MEDICAL HISTORY: Anemia, Anxiety, Asthma, CAD, CHF, CKF, COPD, CVA, Depression, GERD, Gout, High Lipids, HTN, Kidney Stones, MS, UTI'S Surgical History: Appendectomy, CABG, Hysterectomy, Pacemaker, PTCA, 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 Family History Family History: Reviewed,noncontributory to illness, Unknown Social History Smoker: Quit Greater Than 1 Year Alcohol: Denies ETOH Use Drugs: Denies Drug Use Lives In: Assisted Care Constitutional: denies: chills, diaphoresis, fatigue, fever, malaise, sweats, weakness, others EENTM: denies: blurred vision, double vision, ear bleeding, ear discharge, ear drainage, ear pain, ear ringing, eye pain, eye redness, hearing loss, mouth pain, mouth swelling, nasal discharge, nose bleeding, nose congestion, nose pain, photophobia, tearing, throat pain, throat swelling, voice changes, others Respiratory: denies: cough, hemoptysis, orthopnea, SOB at rest, shortness of breath, SOB with excertion, stridor, wheezing, others Cardiovascular: reports: chest pain; denies: dizzy spells, diaphoresis, Dyspnea on exertion, edema, irregular heart beat, left arm pain, lightheadedness, palpitations, PND, syncope, others Gastrointestinal: denies: abdomen distended, abdominal pain, blood streaked bowels, constipated, diarrhea, dysphagia, difficulty swallowing, hematemesis, melena, nausea, poor appetite, poor fluid intake, rectal bleeding, rectal pain, vomiting, others Genitourinary: denies: abnormal vagina bleeding, burning, dyspareunia, dysuria, flank pain, frequency, hematuria, incontinence, pain, , vagina discharge, urgency, others Neurological: denies: dizziness, fainting, headache, left sided numbness, left sided weakness, numbness, paresthesia, pre-existing deficit, right sided numbness, right sided weakness, seizure, speech problems, tingling, tremors, weakness, others Musculoskeletal: denies: back pain, gout, joint pain, joint swelling, muscle pain, muscle stiffness, neck pain, others Integumetry: denies: bruises, change in color, change in hair/nails, dryness, laceration, lesions, lumps, rash, wounds, others Allergic/Immunocompromised: denies: Difficulty Healing, Frequent Infections, Hives, Itching, others Hematologic/Lymphatic: denies: anemia, blood clots, easy bleeding, easy bruising, swollen glands, others Endocrine: denies: excessive hunger, excessive sweating, excessive thirst, excessive urination, flushing, intolerance to cold, intolerance to heat, unexplained weight gain, unexplained weight loss, others Psychiatric: denies: anxiety, bipolar disorder, depression, hopeless, panic disorder, schizophrenia, sleepless, suicidal, others All Other Systems: Reviewed and Negative Physical Exam Exam Comments Appears uncomfortable General Appearance: No Apparent Distress, Normal HEENT: Normal ENT Inspection, Pharynx Normal, TMs Normal Neck: Full Range of Motion, Non-Tender, Normal, Normal Inspection Respiratory: Chest Non-Tender, Lungs Clear, No Accessory Muscle Use, No Respiratory Distress, Normal Breath Sounds Cardiovascular: No Edema, No JVD, No Murmur, No Gallop, Normal Peripheral Pulses, Regular Rate/Rhythm Breast Exam: Deferred Gastrointestinal: No Organomegaly, Non Tender, No Pulsatile Mass, Normal Bowel Sounds, Soft Genitalia: Deferred Pelvic: Deferred Rectal: Deferred Extremities: No calf tenderness, Normal capillary refill, Normal inspection, Normal range of motion, Non-tender, No pedal edema Musculoskeletal : Apperance: Normal Neurologic: Alert, supervisor orchard II-XII nml as Tested, No Motor Deficits, Normal Affect, Normal Mood, No Sensory Deficits Cerebellar Function: Normal Reflexes: Normal Skin: Dry, Normal Color, Warm Lymphatic: No Adenopathy Was a procedure done? Was a procedure done?: No EKG EKG : Pulse Rate (adult): 74 [place]: Normal Cardiac Rhythm: Paced Block: None Hypertrophy: None ST: Normal Comments EK 74 A-V Dual Paced Rythm w/ Inhibition Differential Dx Considerations may include: ACS, CVA, viral syndrome, electrolyte abnormality X-Ray, Labs, Meds, VS Vital Signs Date Time Temp Pulse Resp B/P (MAP) Pulse Ox O2 Delivery O2 Flow Rate FiO2 05/09/25 12:14 58 16 121/60 (80) 99 05/09/25 10:22 62 16 122/56 (78) 98 05/09/25 09:08 65 05/09/25 08:53 65 16 121/66 05/09/25 08:04 63 16 119/61 05/09/25 08:03 74 05/09/25 07:22 64 12 98 Nasal Cannula* 4 36 05/09/25 07:22 98.8 64 12 113/67 (82) 98 98.8 05/09/25 07:18 65 05/09/25 06:20 95 Nasal Cannula* 2 28 05/09/25 06:06 98.8 55 16 113/69 (84) 99 98.8 05/09/25 06:01 98.0 65 18 122/88 96 98.0 05/09/25 05:59 74 Lab Test 05/09/25 09:35 05/09/25 08:45 05/09/25 07:30 05/09/25 06:20 Range/Units Troponin I High Sensitivity 23 28 26 </=34 ng/L Urine Color Yellow Yellow Urine Clarity Clear Clear Urine pH 5.5 5.0-9.0 Urine Specific [place] 1.027 1.001-1.035 Urine Protein Negative Negative Urine Ketones Negative Negative Urine Blood Negative Negative /uL Urine Nitrite Negative Negative Urine Bilirubin Negative Negative Urine Urobilinogen Normal Negative mg/dL Urine Leukocyte Esterase 3+ Negative /uL Urine RBC 6 0 - 4 /hpf Urine Microscopic WBC 55 H 0-5 /HPF Urine Squamous Epithelial Cells Few <5 /hpf Urine Bacteria None seen None Seen /hpf Urine Hyaline Casts Few 0 - 2 /lpf Urine Glucose Normal Normal mg/dL White Blood Count 8.1 4.4-10.8 10^3/uL Red Blood Count 4.34 4.0-5.20 10^6/uL Hemoglobin 13.1 12.2-16.2 g/dL Hematocrit 39.3 # 36.0-46.0 % Mean Corpuscular Volume 90.6 80.0-100.0 fL Mean Corpuscular Hemoglobin 30.2 28.0-32.0 pg Mean Corpuscular Hemoglobin Concent 33.3 32.0-36.0 g/dL Red Cell Distribution Width 15.7 H 11.8-14.3 % Platelet Count 245 140-450 10^3/uL Mean Platelet Volume 7.9 6.9-10.8 fL Neutrophils (%) (Auto) 53.1 37.0-80.0 % Lymphocytes (%) (Auto) 29.6 10.0-50.0 % Monocytes (%) (Auto) 11.6 0.0-12.0 % Eosinophils (%) (Auto) 4.8 0.0-7.0 % Basophils (%) (Auto) 0.9 0.0-2.0 % Neutrophils # (Auto) 4.3 1.6-8.6 10 ^3/uL Lymphocytes # (Auto) 2.4 0.4-5.4 10 ^3/uL Monocytes # (Auto) 0.9 0-1.3 10 ^3/uL Eosinophils # (Auto) 0.4 0-0.8 10 ^3/uL Basophils # (Auto) 0.1 0-0.2 10 ^3/uL Nucleated Red Blood Cells 0.0 % Sodium Level 142 136-145 mmol/L Potassium Level 4.7 3.5-5.1 mmol/L Chloride Level 110 H 98-107 mmol/L Carbon Dioxide Level 26 20-31 mmol/L Anion Gap 6 5-15 Blood Urea Nitrogen 27 #H 9-23 mg/dL Creatinine 1.15 H 0.550-1.02 mg/dL Glomerular Filtration Rate Calc 48 >90 mL/min BUN/Creatinine Ratio 23.5 H 10.0-20.0 Serum Glucose 90 74-106 mg/dL Calcium Level 9.7 8.7-10.4 mg/dL Total Bilirubin 0.4 0.2-1.0 mg/dL Aspartate Amino Transferase (AST) 18 13-40 U/L Alanine Aminotransferase (ALT) 10 7-40 U/L Alkaline Phosphatase 87 46-116 U/L Total Protein 6.4 5.7-8.2 g/dL Albumin 4.2 3.2-4.8 g/dL Current Medications Medications (Trade) Dose Ordered Sig/Asha Route Start Time Stop Time Status Last Admin Ondansetron HCl (Zofran) 4 mg ONCE ONCE IV 05/09/25 08:00 05/09/25 08:01 DC 05/09/25 08:03 Morphine Sulfate 4 mg ONCE ONCE IV 05/09/25 08:00 05/09/25 08:01 DC 05/09/25 08:04 Time of 1ST Reevaluation: 07:00 Reevaluation 1ST: Unchanged Patient Education/Counseling: Diagnosis, Treatment, Prognosis Family Education/Counseling: No Family Present SEPSIS Sepsis Screen Date sepsis recognized/suspect: May 09, 2025 Time Sepsis recognized/suspect: 557 Recent Procedure: No On Antibiotic Therapy: No Respiratory Rate >20: No Heart Rate >90: No Temp<36 C (96.8 F) or >38.3 C: No SBP <90 or MAP <65 mmHG: No New Acute Mental Status Change: No Is the patient on CPAP, BIPAP,: No Physician Orders Chest Portable (05/09/25 05:59) Vital Signs Date Time Temp Pulse Resp B/P (MAP) Pulse Ox O2 Delivery O2 Flow Rate FiO2 05/09/25 12:14 58 16 121/60 (80) 99 05/09/25 10:22 62 16 122/56 (78) 98 05/09/25 09:08 65 05/09/25 08:53 65 16 121/66 05/09/25 08:04 63 16 119/61 05/09/25 08:03 74 05/09/25 07:22 64 12 98 Nasal Cannula* 4 36 05/09/25 07:22 98.8 64 12 113/67 (82) 98 98.8 05/09/25 07:18 65 05/09/25 06:20 95 Nasal Cannula* 2 28 05/09/25 06:06 98.8 55 16 113/69 (84) 99 98.8 05/09/25 06:01 98.0 65 18 122/88 96 98.0 05/09/25 05:59 74 Laboratory Tests Test 05/09/25 06:20 White Blood Count 8.1 10^3/uL (4.4-10.8) Medications Medications Dose Ordered Sig/Asha Route Start Time Stop Time Status Last Admin Dose Admin Morphine Sulfate 4 mg ONCE ONCE IV 05/09/25 08:00 05/09/25 08:01 DC 05/09/25 08:04 Ondansetron HCl 4 mg ONCE ONCE IV 05/09/25 08:00 05/09/25 08:01 DC 05/09/25 08:03 Departure 1 Departure Time of Disposition: 12:30 (Patient well known to the ER. Patient's workup is benign. Discussed the case with the patient's primary care doctor would like her discharge back to facility. We will discharge patient) Impression: Primary Impression: Acute chest pain Disposition: 03 HALFWAY FACILITY Condition: Stable Additional Instructions: You presented today with chest pain. Your workup today was benign including labs, troponin, EKG, chest x-ray. Your pain may be from musculoskeletal strain, acid reflux, anxiety, or many other factors. It is important to follow up with your regular doctor within 1 week. If your symptoms worsen or you have any other concerns please return to the emergency room. Discharged With: Self Critical Care Note Critical Care Time?: No Stability Stability form required: No I personally scribed for BRANDO SANCHEZ MD ([email or web address]) on 05/09/25 at 06:35. Electronically submitted by Natalio Baugh ([email or web address]). I personally scribed for BRANDO SANCHEZ MD ([email or web address]) on 05/09/25 at 08:03. Electronically submitted by Natalio Baugh ([email or web address]). BRANDO SANCHEZ MD May 09, 2025 06:35
--- NOTE | 2025-05-09 06:43 | DVH ---
INDICATION: CP TECHNIQUE: Frontal view of the chest. COMPARISON: XY CHEST PORTABLE on DOS: 05/07/25, XY CHEST PORTABLE on DOS: 04/12/25, XY CHEST PORTABLE on DOS: 03/17/25, XY CHEST XRAY 1 VIEW on DOS: 02/13/25, XY CHEST XRAY 1 VIEW on DOS: 02/05/25 FINDINGS: Left pacemaker/AICD. Median sternotomy.. The heart and mediastinal contours are grossly unremarkable. Small left pleural effusion. The lungs are clear. The bony structures of the chest are intact without fracture. IMPRESSION: 1. Small left pleural effusion
[2025-05-09 06:46] LABS: Alanine Aminotransferase 10 U/L (7-40); Albumin 4.2 g/dL (3.2-4.8); Alkaline Phosphatase 87 U/L (46-116); Anion Gap 6 (5-15); BUN/Creatinine Ratio 23.5 (10.0-20.0); Bilirubin, Total 0.4 mg/dL (0.2-1.0); Calcium 9.7 mg/dL (8.7-10.4); Carbon Dioxide 26 mmol/L (20-31); Glucose 90 mg/dL (74-106); Potassium 4.7 mmol/L (3.5-5.1); Sodium 142 mmol/L (136-145); Total Protein 6.4 g/dL (5.7-8.2)
[2025-05-09 06:47] LABS: Blood Urea Nitrogen 27 mg/dL (9-23); Chloride 110 mmol/L (98-107)
--- NOTE | 2025-05-09 07:19 | ECG ---
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
[2025-05-09 07:22] VITALS: PULSE 64; RESP 12; TEMP 98.8; O2SAT 98
[2025-05-09] MEDS: ONDANSETRON HCL 4 MG/2 ML VIAL IV ONE (08:03)
[2025-05-09] MEDS: MORPHINE SULFATE 4 MG/ML SYR/VIAL IV ONE (08:04)
[2025-05-09 09:05] LABS: Urine Protein, UAD Negative (Negative)
--- NOTE | 2025-05-09 09:10 | ECG ---
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
--- NOTE | 2025-05-09 10:11 | ECG ---
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
[2025-05-09] MEDS: HYDROcodone-ACET 5/325MG TAB PO ONE (12:42)
[2025-05-09] MEDS: KETOROLAC TROMETH 30 MG/ML 1ML VIAL IV ONE (12:46)
[2025-05-09 14:01] VITALS: BP 123/57; PULSE 65; RESP 16; O2SAT 98
== END 2025-05-09 15:53 ==
LOC: ER 05:52 → EDBD 05:52 → ER 15:52
DX: R07.89 Other chest pain (principal); F32.A Depression, unspecified; I25.10 Atherosclerotic heart disease of native coronary artery without angina pectoris; Z79.899 Other long term (current) drug therapy; Z86.73 Personal history of transient ischemic attack (TIA), and cerebral infarction without residual deficits; Z88.5 Allergy status to narcotic agent; Z87.442 Personal history of urinary calculi; Z88.6 Allergy status to analgesic agent; Z88.1 Allergy status to other antibiotic agents; Z90.49 Acquired absence of other specified parts of digestive tract; Z95.0 Presence of cardiac pacemaker; Z90.710 Acquired absence of both cervix and uterus
CPT/HCPCS: 36415; 71045; 80053; 81001; 84484; 85025; 93005; 96374; 96375; 99285; J1885; J2270; J2405

== ENCOUNTER 2025-05-15 00:57 | Inpatient (IN) | payer MEDICARE, MEDICAID ==
[~2025-05-15] VITALS: Ht 162.6 cm; Wt 71.2 kg
--- NOTE | 2025-05-15 01:31 | ED.PDOC ---
General HPI Comments azra, HPI: Poor Historian. Just completed a course of Cipro proximally a week ago for UTI. 79-year-old female [facility] for nonspecific chest pain that started approximately hour and half prior to arrival with the associated bilateral flank pain. Patient has some dysuria. Patient is wearing a diaper. Per EMS, pre-hospital course vital signs were stable. She also mentioned some nonspecific midsternal chest discomfort/tightness. Past Medical History: COPD, CHF, coronary artery disease, hyperlipidemia, patient is oxygen dependent, frequent UTIs Past Surgical History: Coronary stenting, CABG REVIEW OF SYSTEMS: CONSTITUTIONAL: Denies acute: fever, diaphoresis, chills, generalized weakness. HEAD: Denies acute: headache, photophobia Eyes: Denies acute: Double vision, vision loss, eye pain, eye discharge. EARS: Denies acute: tinnitus, hearing loss, ear discharge, ear pain, THROAT: Denies acute: sore throat, swelling, difficulty swallowing , pain with swallowing, change in voice. NECK: Denies acute: neck pain, neck swelling, stiff neck. HEART: Denies acute : chest pain, palpitations, LUNGS: Denies acute: SOB, wheezing, cough, hemoptysis ABDOMEN: Denies acute: abdominal pain, Nausea, Vomiting, diarrhea, melena , hematemesis, hematochezia SKIN: Denies acute: rash, redness, lesions, itchiness. EXTREMITIES: Denies acute: calf pain, numbness, tingling, weakness, denies pain in extremity. Denies acute: Low back pain. Neuro: Denies acute: focal neurological deficit, motor or sensory focal neurological deficit, tremors, seizure like activity, confusion, dizziness, change in mental status, loss of bowel or bladder function, cauda equina like symptoms. : Denies acute: , hematuria, increase in urinary frequency. PSYCH: Denies acute: hallucination, suicidal ideation, homicidal ideation. FEMALE: Denies acute: abnormal vaginal bleeding, foul odor, unusual discharge. PHYSICAL EXAM: General: ----mild----acute distress, awake and alert. Head: normocephalic, atraumatic. No raccoon's eyes, no hare sign. Neck: supple, trachea is midline, no swelling. Throat: Normal phonation. Eyes:, no erythema, no purulent discharge, no proptosis, no icterus. Heart: regular rate, regular rhythm, no significant murmur appreciated. Lungs: no apparent respiratory distress, Able to speak in full sentences. Bilateral wheezing, no rhonchi, no crackles. No stridors Abdomen: non tender to palpation, non distended, soft, no guarding, no rebound, + bowel sounds. Neuro: Awake, Alert, oriented to name, self, situation, follows commands GCS=15. Speech is normal. Skin: no petechia, no purpura, no cyanosis, non-pale, not jaundice. Lower extremities: --no - Pitting edema no deformity, no focal swelling, no calf TTP. Makes eye contact. moves all four extremities. Face: no apparent facial droop. CVA tenderness to percussion bilaterally. ED COURSE: DISCLAIMER: This medical document was created using an electronic medical record system with voice recognition software and computerized dictation system. Although this document has been carefully reviewed, there might still be some phonetic and typographical errors. Occasional wrong-word or "sound-alike" substitutions may have occurred due to the inherent limitations of voice recognition software. These areas are purely typographical due to imperfections of the software programs and do not reflect any compromise in the patient's medical care. Please read the chart carefully and recognize, using context, where these substitutions have occurred. 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 MEJIA Hydrocodone (Verified Allergy, Unknown, rash, 05/18/23) tylenol is okay per patient Home Meds Active Scripts Ciprofloxacin Hcl (Cipro) 500 Mg Tab, 1 TAB PO BID, #14 TAB Prov:CHUCK STEWART MD 04/26/25 Ciprofloxacin Hcl (Cipro) 250 Mg Tab, 250 MG PO BID for 5 Days, #10 TAB Prov:YENNY FRAIRE MD 02/09/25 Oxycodone W/ Acetaminophen (Percocet 5/325MG) 1 Tab Tb, 1 TAB PO QID PRN, #20 TAB Prov:YENNY FRAIRE MD 02/09/25 Levofloxacin Hemihydrate (LEVOFLOXACIN) 750 Mg Tab, 750 MG PO DAILY for 5 Days, #5 TAB Prov:PHILL LEAL RESDIENT 01/17/25 Oxycodone W/ Acetaminophen (Percocet 5/325MG) 1 Tab Tb, 1 TAB PO QID, #30 TAB Prov:JANE VEGA MD 09/29/24 Phenazopyridine HCl (Eq Urinary Pain Relief Ma) 99.5 Mg Tab, 99.5 MG PO TID for 10 Days, #30 TAB Prov:PHILL LEAL RESDIENT 09/23/24 Metoprolol Succinate (Metoprolol Succinate Er) 25 Mg Tab, 1 TAB PO DAILY for 30 Days, #30 TAB 5 Refills Prov:AXEL CARABALLO RESIDENT 09/06/24 Spironolactone (Aldactone) 25 Mg Tab, 25 MG PO DAILY for 30 Days, #30 TAB Prov:BHARAT MICHELLE RESIDENT 07/22/24 Oxybutynin Chloride (Oxybutynin Chloride) 5 Mg Tab, 5 MG PO Q8HR for 30 Days, #90 TAB Prov:BHARAT MICHELLE RESIDENT 07/22/24 Atorvastatin Calcium (ATORVASTATIN CALCIUM) 20 Mg Tab, 40 MG PO HS for 30 Days, #60 TAB Prov:BHARAT MICHELLE RESIDENT 07/22/24 Duloxetine Hydrochloride (Duloxetine Hydrochloride) 30 Mg Cap, 30 MG PO DAILY for 30 Days, #30 CAP Prov:WINSOME GOMEZ MD 04/29/24 Clopidogrel Bisulfate (CLOPIDOGREL) 75 Mg Tab, 75 MG PO DAILY for 30 Days, #30 TAB 5 Refills Prov:YENNY FRAIRE MD 11/26/23 Ranolazine (Ranolazine ER) 500 Mg Tab, 500 MG PO BID for 30 Days, #60 TAB 2 Refills Prov:MAGAN RUSS RESIDENT 09/16/23 Reported Medications Polyethylene Glycol 3350 (Miralax) 17 Gm Pow, 17 GM PO DAILY PRN for FOR CONSTIPATION for 30 Days, #30 01/28/24 Ipratropium-Albuterol (Ipratropium Dixon/Albut) 1 Yuli Yuli, 1 VIAL NEB Q6HPRN PRN for SHORTNESS OF BREATH for 13 Days, #180 09/05/23 Fluticasone-Salmeterol (Fluticasone Propionate/SA 250-50 Mcg/Dose) 1 Aer Aer, 1 PUFF INH BID for 30 Days, #60 09/05/23 Albuterol Sulfate (Albuterol Sulfate Hfa) 108 Mcg/Act Aer, 2 PUFF INH Q4HPRN PRN for dyspnea for 17 Days, #18 09/05/23 Cholecalciferol (VITAMIN D3) 2,000 Unit Tab, 1 TAB PO BID for 30 Days, #60 08/28/23 Multiple Vitamin (Tab-A-Radha) Tab, 1 TAB PO DAILY for 30 Days, #30 08/28/23 Aspirin (Aspir-Low) 81 Mg Tab, 1 TAB PO DAILY for 30 Days, #30 08/28/23 Ascorbic Acid (VITAMIN C TABLET) 500 Mg Tb, 1 TAB PO BID for 30 Days, #60 05/18/23 Pantoprazole Sodium Sesquihydr (Pantoprazole Sodium) 40 Mg Tab, 1 TAB PO DAILY 05/18/23 Information Source: Patient, Emergency Med Personnel Mode of Arrival: EMS Past Medical History PAST MEDICAL HISTORY: Anemia, Anxiety, Asthma, CAD, CHF, CKF, COPD, CVA, Depression, GERD, Gout, High Lipids, HTN, Kidney Stones, NH, UTI'S Surgical History: Appendectomy, CABG, Hysterectomy, Pacemaker, PTCA, To nsillectomy MUSHROOM CULTIVATOR History: Ovarian Cysts Family History Family History: Reviewed,noncontributory to illness, Unknown Social History Smoker: Quit Greater Than 1 Year Alcohol: Denies ETOH Use Drugs: Denies Drug Use Lives In: Assisted Care Was a procedure done? Was a procedure done?: No Differential Diagnosis Kidney stone (Female): Other (Flank Pain;DDX include Nephrolethiasis, obstructive uropathy, kidney cancer, renal infarct, intraabdominal neoplasm, lower lobe pneumonia, retroperitoneal hemorrhage, pancreatitis, aneurysm, dissection, musculoskeletal, rib contusion/trauma, hematoma, PYLONEPHRITIS, muscle strain, spinal disease. ) Other Differential Diagnosis As far as chest pain: Ddx include but not limitied to gastritis, musculoskeletal pain, radiculopathy, atypical chest pain, dissection, aneurysm, ACS, unstable angina, hiatal hernia, GERD, anxiety, costochondritis, PE, pneumothroax, neoplasm, cardiac ischemia, drug abuse, anemia. X-Ray, Labs, Meds, VS Vital Signs Date Time Temp Pulse Resp B/P (MAP) Pulse Ox O2 Delivery O2 Flow Rate FiO2 05/15/25 01:59 66 05/15/25 01:49 17 97 Nasal Cannula* 2 28 05/15/25 01:15 65 05/15/25 01:14 99.0 66 16 114/61 (78) 95 99.0 05/15/25 01:14 Room Air* 0 21 05/15/25 00:57 98.9 98 18 143/76 97 98.9 Lab Test 05/15/25 02:37 05/15/25 02:01 05/15/25 01:36 Range/Units Troponin I High Sensitivity 22 25 </=34 ng/L Urine Color Yellow Yellow Urine Clarity Clear Clear Urine pH 5.5 5.0-9.0 Urine Specific Anita 1.028 1.001-1.035 Urine Protein Negative Negative Urine Ketones Negative Negative Urine Blood Negative Negative /uL Urine Nitrite Negative Negative Urine Bilirubin Negative Negative Urine Urobilinogen Normal Negative mg/dL Urine Leukocyte Esterase Negative Negative /uL Urine RBC <1 0 - 4 /hpf Urine Microscopic WBC 2 0-5 /HPF Urine Squamous Epithelial Cells Few <5 /hpf Urine Bacteria None seen None Seen /hpf Urine Hyaline Casts Few 0 - 2 /lpf Urine Mucus Few None Seen Urine Glucose Normal Normal mg/dL White Blood Count 7.0 4.4-10.8 10^3/uL Red Blood Count 4.26 4.0-5.20 10^6/uL Hemoglobin 13.1 12.2-16.2 g/dL Hematocrit 39.1 36.0-46.0 % Mean Corpuscular Volume 91.7 80.0-100.0 fL Mean Corpuscular Hemoglobin 30.7 28.0-32.0 pg Mean Corpuscular Hemoglobin Concent 33.5 32.0-36.0 g/dL Red Cell Distribution Width 15.6 H 11.8-14.3 % Platelet Count 228 140-450 10^3/uL Mean Platelet Volume 8.0 6.9-10.8 fL Neutrophils (%) (Auto) 51.0 37.0-80.0 % Lymphocytes (%) (Auto) 30.8 10.0-50.0 % Monocytes (%) (Auto) 11.3 0.0-12.0 % Eosinophils (%) (Auto) 6.3 0.0-7.0 % Basophils (%) (Auto) 0.6 0.0-2.0 % Neutrophils # (Auto) 3.6 1.6-8.6 10 ^3/uL Lymphocytes # (Auto) 2.2 0.4-5.4 10 ^3/uL Monocytes # (Auto) 0.8 0-1.3 10 ^3/uL Eosinophils # (Auto) 0.4 0-0.8 10 ^3/uL Basophils # (Auto) 0 0-0.2 10 ^3/uL Nucleated Red Blood Cells 0.1 % Sodium Level 143 136-145 mmol/L Potassium Level 5.0 3.5-5.1 mmol/L Chloride Level 112 H 98-107 mmol/L Carbon Dioxide Level 26 20-31 mmol/L Anion Gap 5 5-15 Blood Urea Nitrogen 32 H 9-23 mg/dL Creatinine 1.08 H 0.550-1.02 mg/dL Glomerular Filtration Rate Calc 52 >90 mL/min BUN/Creatinine Ratio 29.6 H 10.0-20.0 Serum Glucose 88 74-106 mg/dL Lactic Acid Level 0.7 0.4-2.0 mmol/L Calcium Level 9.3 8.7-10.4 mg/dL Total Bilirubin 0.3 0.2-1.0 mg/dL Aspartate Amino Transferase (AST) 23 13-40 U/L Alanine Aminotransferase (ALT) 13 7-40 U/L Alkaline Phosphatase 80 46-116 U/L Total Protein 5.8 5.7-8.2 g/dL Albumin 4.0 3.2-4.8 g/dL Current Medications Medications (Trade) Dose Ordered Sig/Asha Route Start Time Stop Time Status Last Admin Albuterol (Ventolin Medneb) 2.5 mg ONCE ONCE NEB 05/15/25 01:30 05/15/25 01:34 DC 05/15/25 01:48 Ipratropium Dixon (Atrovent Medneb) 1 mg ONCE ONCE NEB 05/15/25 01:30 05/15/25 01:34 DC 05/15/25 01:49 Methylprednisolone Sodium Succinate (Solu Medrol) 125 mg ONCE ONCE IV 05/15/25 01:30 05/15/25 01:34 DC 05/15/25 02:24 X-Ray, Labs, Meds, VS Comment [address] [address] Ph: [phone] DIAGNOSTIC IMAGING Diagnostic Imaging Report : [id number] Signed PATIENT: MONICA JAMES ACCT: [id number] UNIT: [id number] : 1945 LOC: ER ROOM / BED: / AGE / SEX: 79 / F ADM STATUS: REG ER SERVICE 023 ORDERING PHYSICIAN: MIRIAN SANON DO PROCEDURE(s): ABPL - CT AB PEL WO CON-NO ORAL OR IV REASON: flank pain, uti ORDER NUMBER(s): [id number], ACCESSION NUMBER(s): [id number] EXAM: CT CT AB PEL WO CON-NO ORAL OR IV History: flank pain, uti Comparison Study: CT CT AB PEL WO CON-NO ORAL OR IV on DOS: 02/10/25, CT CT AB PEL WO CON-NO ORAL OR IV on DOS: 01/07/25, CT CT AB PEL WO CON-NO ORAL OR IV on DOS: 12/19/24 TECHNIQUE: Multidetector CT of the abdomen and pelvis was performed from lung bases to pubic symphysis. Imaging was performed without IV contrast. Axial, coronal and sagittal multiplanar reformats were obtained from the axial data set by the technologist. Radiation optimization: All CT scans at this facility use at least one of these dose optimization techniques: automated exposure control mA and/or kV adjustment per patient size (includes targeted exams where dose is matched to clinical indication) or iterative reconstruction. Radiation Dose Information: CT Dose: CTDI volume is 12.19 mGy. Dose-length product is 693.11 mGy*cm FINDINGS: Evaluation of solid organs is limited due to lack of intravenous contrast use. Imaged portions of the lung bases demonstrate chronic appearing interstitial thickening. Liver, gallbladder, spleen, and adrenal glands appear unremarkable. The kidneys appear symmetric without hydronephrosis. There is a 2 mm nonobstructing left renal calculus and a 0.7 cm left upper pole hyperdense cyst. 2.0 cm right lower pole renal cyst. No evidence of bowel obstruction or focal bowel wall thickening. There is colonic diverticulosis. Appendix not well appreciated, however no secondary signs of appendicitis in the right lower quadrant. Postsurgical changes left inguinal region. No free fluid, free air, or adenopathy. Moderate to severe degenerative changes of the spine. IMPRESSION: 1. No acute abdominal or pelvic finding. ATED BY: KAVIN PICKERING MD DICTATED DATE/TIME: 05/15/25322 SIGNED BY: KAVIN PICKERING MD SIGNED DATE/TIME: 05/15/25322 CC: [place] [id number] Ph: [phone] DIAGNOSTIC IMAGING Diagnostic Imaging Report : [id number] Signed PATIENT: MONICA JAMES ACCT: [id number] UNIT: [id number] : 1945 LOC: ER ROOM / BED: / AGE / SEX: 79 / F ADM STATUS: REG ER SERVICE 4 ORDERING PHYSICIAN: MIRIAN SANON DO PROCEDURE(s): CXRP - CHEST PORTABLE REASON: cp ORDER NUMBER(s): [id number], ACCESSION NUMBER(s): [id number] CHEST RADIOGRAPH INDICATION: cp TECHNIQUE: Single frontal view of the chest was obtained COMPARISON: XY CHEST PORTABLE on DOS: 05/09/25, XY CHEST PORTABLE on DOS: 05/07/25, XY CHEST PORTABLE on DOS: 04/12/25 IMPRESSION: Heart is enlarged with median sternotomy wires and a multi lead left cardiac device. No focal airspace opacity or sizable effusion. Possible trace effusion versus scarring at the left lung base. No pneumothorax. ATED BY: KAVIN PICKERING MD DICTATED DATE/TIME: 05/15/25317 SIGNED BY: KAVIN PICKERING MD SIGNED DATE/TIME: 05/15/25317 CC: Departure 1 Departure Time of Disposition: 01:32 Impression: Primary Impression: Acute chest pain Additional Impressions: COPD exacerbation Bilateral flank pain Disposition: ADMITTED INPATIENT Admit to: Tele Condition: Guarded Discharged With: Self Heart Score Heart Score: Heart Score Response (Comments) Value History Slightly Suspicious 0 EKG Normal 0 Age >65 2 Risk Factors >3 or Hx ASHD 2 Troponin Normal limit 0 Total 4 MIRIAN SANON DO May 15, 2025 01:31
[2025-05-15] MEDS: ALBUTEROL SULF 2.5 MG/0.5ML(0.5%) NEB SOLN NEB ONE (01:48)
[2025-05-15] MEDS: IPRATROPIUM BROM 0.5 MG/2.5ML INH SOL NEB ONE (01:49)
[2025-05-15 01:59] LABS: Hematocrit 39.1 % (36.0-46.0); Hemoglobin 13.1 g/dL (12.2-16.2); Mean Corpuscular Hemoglobin 30.7 pg (28.0-32.0); Mean Corpuscular Volume 91.7 fL (80.0-100.0); Nucleated Red Blood Cells % 0.1 %
--- NOTE | 2025-05-15 02:01 | ECG ---
[facility] Test Date: 2025-05-15 Test Time: 01:59:35 Pat Name: MONICA JAMES Department: [facility] ED Patient ID: [facility]-[id number] Room: 0270T Gender: F Site Specialist: : 1945 Requested By: MIRIAN SANON Order Number: [id number] Reading MD: Adair Mijares Measurements Intervals [place] Rate: 66 P: 236 [place]: 49 QRS: 245 QRSD: 161 T: 76 QT: 543 QTc: 570 Interpretive Statements Atrial-ventricular dual-paced complexes No further analysis attempted due to paced rhythm Electronically Signed On 05-17-2025 15:26:10 PST by Adair Mijares Please click the below link to view image of tracing.
[2025-05-15 02:12] LABS: Urine Protein, UAD Negative (Negative)
[2025-05-15 02:18] LABS: Alanine Aminotransferase 13 U/L (7-40); Albumin 4.0 g/dL (3.2-4.8); Alkaline Phosphatase 80 U/L (46-116); Anion Gap 5 (5-15); BUN/Creatinine Ratio 29.6 (10.0-20.0); Bilirubin, Total 0.3 mg/dL (0.2-1.0); Calcium 9.3 mg/dL (8.7-10.4); Carbon Dioxide 26 mmol/L (20-31); Glucose 88 mg/dL (74-106); Potassium 5.0 mmol/L (3.5-5.1); Sodium 143 mmol/L (136-145); Total Protein 5.8 g/dL (5.7-8.2)
[2025-05-15] MEDS: methylPREDNISolone SOD SUCC 125 MG/2 ML VL IV ONE (02:24)
[2025-05-15 02:49] LABS: Blood Urea Nitrogen 32 mg/dL (9-23); Chloride 112 mmol/L (98-107)
--- NOTE | 2025-05-15 03:19 | DVH ---
CHEST RADIOGRAPH INDICATION: cp TECHNIQUE: Single frontal view of the chest was obtained COMPARISON: XY CHEST PORTABLE on DOS: 05/09/25, XY CHEST PORTABLE on DOS: 05/07/25, XY CHEST PORTABLE on DOS: 04/12/25 IMPRESSION: Heart is enlarged with median sternotomy wires and a multi lead left cardiac device. No focal airspace opacity or sizable effusion. Possible trace effusion versus scarring at the left lung base. No pneumothorax.
--- NOTE | 2025-05-15 03:23 | DVH ---
EXAM: CT CT AB PEL WO CON-NO ORAL OR IV History: flank pain, uti Comparison Study: CT CT AB PEL WO CON-NO ORAL OR IV on DOS: 02/10/25, CT CT AB PEL WO CON-NO ORAL OR IV on DOS: 01/07/25, CT CT AB PEL WO CON-NO ORAL OR IV on DOS: 12/19/24 TECHNIQUE: Multidetector CT of the abdomen and pelvis was performed from lung bases to pubic symphysis. Imaging was performed without IV contrast. Axial, coronal and sagittal multiplanar reformats were obtained from the axial data set by the technologist. Radiation optimization: All CT scans at this facility use at least one of these dose optimization techniques: automated exposure control mA and/or kV adjustment per patient size (includes targeted exams where dose is matched to clinical indication) or iterative reconstruction. Radiation Dose Information: CT Dose: CTDI volume is 12.19 mGy. Dose-length product is 693.11 mGy*cm FINDINGS: Evaluation of solid organs is limited due to lack of intravenous contrast use. Imaged portions of the lung bases demonstrate chronic appearing interstitial thickening. Liver, gallbladder, spleen, and adrenal glands appear unremarkable. The kidneys appear symmetric without hydronephrosis. There is a 2 mm nonobstructing left renal calculus and a 0.7 cm left upper pole hyperdense cyst. 2.0 cm right lower pole renal cyst. No evidence of bowel obstruction or focal bowel wall thickening. There is colonic diverticulosis. Appendix not well appreciated, however no secondary signs of appendicitis in the right lower quadrant. Postsurgical changes left inguinal region. No free fluid, free air, or adenopathy. Moderate to severe degenerative changes of the spine. IMPRESSION: 1. No acute abdominal or pelvic finding.
--- NOTE | 2025-05-15 04:03 | ECG ---
[facility] Test Date: 2025-05-15 Test Time: 04:01:24 Pat Name: MONICA JAMES Department: [facility] ED Patient ID: [facility]-[id number] Room: [facility]T Gender: F Mcat Tutor: MEIR : 1945 Requested By: MIRIAN SANON Order Number: [id number] Reading MD: Adair Mijares Measurements Intervals [place] Rate: 65 P: 0 FL: 187 QRS: -72 QRSD: 147 T: 95 QT: 496 QTc: 516 Interpretive Statements Atrial-ventricular dual-paced complexes No further analysis attempted due to paced rhythm Electronically Signed On 05-17-2025 15:26:14 PST by Adair Mijares Please click the below link to view image of tracing.
[2025-05-15] MEDS: ASPirin-EC 325mg tab PO ONE (04:23)
[2025-05-15] MEDS: NITROGLYCERIN 0.4 MG SL TAB SL ONE (04:23)
[2025-05-15] MEDS ORDERED: NITROGLYCERIN 0.4 MG SL TAB SL PRN (04:30)
[2025-05-15] MEDS: MORPHINE SULFATE 4 MG/ML SYR/VIAL IV PRN (04:48)
--- NOTE | 2025-05-15 06:54 | ECG ---
[facility] Test Date: 2025-05-15 Test Time: 01:06:28 Pat Name: MONICA JAMES Department: [facility] ED Patient ID: [facility]-[id number] Room: [facility]0T Gender: F Frontload Driver: : 1945 Requested By: MIRIAN SANON Order Number: [id number] Reading MD: Adair Mijares Measurements Intervals [place] Rate: 65 P: 69 [place]: 192 QRS: 256 QRSD: 136 T: 100 QT: 456 QTc: 475 Interpretive Statements Atrial-sensed ventricular-paced rhythm No further analysis attempted due to paced rhythm Electronically Signed On 05-17-2025 15:26:06 PST by Adair Mijares Please click the below link to view image of tracing.
[2025-05-15 07:42] VITALS: PULSE 63; RESP 16; O2SAT 96
[2025-05-15 09:00] VITALS: BP 111/37; PULSE 64; RESP 16; TEMP 92; O2SAT 97
[2025-05-15] MEDS: KETOROLAC TROMETH 30 MG/ML 1ML VIAL IV PRN (10:10)
[2025-05-15] MEDS: ENOXAPARIN SOD 40 MG/0.4 ML SYRINGE SC SCH (10:13)
[2025-05-15 13:00] VITALS: BP 112/57; PULSE 68; RESP 16; TEMP 96.7; O2SAT 98
[2025-05-15 16:30] VITALS: BP 145/77; PULSE 68; RESP 20; TEMP 98; O2SAT 99
[2025-05-15 20:00] VITALS: PULSE 74; PULSE 81; RESP 16; O2SAT 97
[2025-05-15 21:00] VITALS: BP 133/72; PULSE 74; RESP 16; TEMP 97.5; O2SAT 97
[2025-05-16] VITALS (8 sets, daily range): BP systolic 125–159; BP diastolic 64–85; PULSE 66–79; RESP 17–20; TEMP 96.8–98.6; O2SAT 90–98
[2025-05-16] MEDS: ONDANSETRON HCL 4 MG/2 ML VIAL IV PRN (00:32)
[2025-05-16] MEDS: OXYCODONE W/ ACETAMINOPHEN 5/325MG TABLET PO PRN ×2 (00:33→17:28)
[2025-05-16 06:24] LABS: Hematocrit 39.4 % (36.0-46.0); Hemoglobin 13.4 g/dL (12.2-16.2); Mean Corpuscular Hemoglobin 30.6 pg (28.0-32.0); Mean Corpuscular Volume 90.2 fL (80.0-100.0); Nucleated Red Blood Cells % 0.0 %
[2025-05-16 06:36] LABS: Alanine Aminotransferase 12 U/L (7-40); Albumin 4.0 g/dL (3.2-4.8); Alkaline Phosphatase 79 U/L (46-116); BUN/Creatinine Ratio 26.8 (10.0-20.0); Calcium 9.4 mg/dL (8.7-10.4); Glucose 105 mg/dL (74-106); Potassium 4.7 mmol/L (3.5-5.1); Sodium 141 mmol/L (136-145); Total Protein 6.2 g/dL (5.7-8.2)
[2025-05-16 06:39] LABS: Bilirubin, Total 0.3 mg/dL (0.2-1.0); Blood Urea Nitrogen 30 mg/dL (9-23); Chloride 110 mmol/L (98-107)
[2025-05-16 06:40] LABS: Anion Gap 8 (5-15); Carbon Dioxide 23 mmol/L (20-31)
[2025-05-17] VITALS (9 sets, daily range): BP systolic 124–169; BP diastolic 55–80; PULSE 70–103; RESP 17–18; TEMP 97.8–98.2; O2SAT 95–99
--- NOTE | 2025-05-17 15:16 | DVHHP2 ---
History of Present Illness HPI Just completed a course of Cipro proximally a week ago for UTI. 79-year-old female [facility] for nonspecific chest pain that started approximately hour and half prior to arrival with the associated bilateral flank pain. Patient has some dysuria. Patient is wearing a diaper. Per EMS, pre-hospital course vital signs were stable. She also mentioned some nonspecific midsternal chest discomfort/tightness. Home Meds Active Scripts Ciprofloxacin Hcl (Cipro) 500 Mg Tab, 1 TAB PO BID, #14 TAB Prov:CHUCK STEWART MD 04/26/25 Ciprofloxacin Hcl (Cipro) 250 Mg Tab, 250 MG PO BID for 5 Days, #10 TAB Prov:YENNY FRAIRE MD 02/09/25 Oxycodone W/ Acetaminophen (Percocet 5/325MG) 1 Tab Tb, 1 TAB PO QID PRN, #20 TAB Prov:YENNY FRAIRE MD 02/09/25 Levofloxacin Hemihydrate (LEVOFLOXACIN) 750 Mg Tab, 750 MG PO DAILY for 5 Days, #5 TAB Prov:PHILL LEAL RESDIENT 01/17/25 Oxycodone W/ Acetaminophen (Percocet 5/325MG) 1 Tab Tb, 1 TAB PO QID, #30 TAB Prov:JANE VEGA MD 09/29/24 Phenazopyridine HCl (Eq Urinary Pain Relief Ma) 99.5 Mg Tab, 99.5 MG PO TID for 10 Days, #30 TAB Prov:PHILL LEAL RESDIENT 09/23/24 Metoprolol Succinate (Metoprolol Succinate Er) 25 Mg Tab, 1 TAB PO DAILY for 30 Days, #30 TAB 5 Refills Prov:AXEL CARABALLO RESIDENT 09/06/24 Spironolactone (Aldactone) 25 Mg Tab, 25 MG PO DAILY for 30 Days, #30 TAB Prov:BHARAT MICHELLE RESIDENT 07/22/24 Oxybutynin Chloride (Oxybutynin Chloride) 5 Mg Tab, 5 MG PO Q8HR for 30 Days, #90 TAB Prov:BHARAT MICHELLE RESIDENT 07/22/24 Atorvastatin Calcium (ATORVASTATIN CALCIUM) 20 Mg Tab, 40 MG PO HS for 30 Days, #60 TAB Prov:BHARAT MICHELLE RESIDENT 07/22/24 Duloxetine Hydrochloride (Duloxetine Hydrochloride) 30 Mg Cap, 30 MG PO DAILY f or 30 Days, #30 CAP Prov:WINSOME GOMEZ MD 04/29/24 Clopidogrel Bisulfate (CLOPIDOGREL) 75 Mg Tab, 75 MG PO DAILY for 30 Days, #30 TAB 5 Refills Prov:YENNY FRAIRE MD 11/26/23 Ranolazine (Ranolazine ER) 500 Mg Tab, 500 MG PO BID for 30 Days, #60 TAB 2 Refills Prov:MAGAN RUSS RESIDENT 09/16/23 Reported Medications Polyethylene Glycol 3350 (Miralax) 17 Gm Pow, 17 GM PO DAILY PRN for FOR CONSTIPATION for 30 Days, #30 01/28/24 Ipratropium-Albuterol (Ipratropium [place]/Albut) 1 Yuli Yuli, 1 VIAL NEB Q6HPRN PRN for SHORTNESS OF BREATH for 13 Days, #180 09/05/23 Fluticasone-Salmeterol (Fluticasone Propionate/SA 250-50 Mcg/Dose) 1 Aer Aer, 1 PUFF INH BID for 30 Days, #60 09/05/23 Albuterol Sulfate (Albuterol Sulfate Hfa) 108 Mcg/Act Aer, 2 PUFF INH Q4HPRN PRN for dyspnea for 17 Days, #18 09/05/23 Cholecalciferol (VITAMIN D3) 2,000 Unit Tab, 1 TAB PO BID for 30 Days, #60 08/28/23 Multiple Vitamin (Tab-A-Radha) Tab, 1 TAB PO DAILY for 30 Days, #30 08/28/23 Aspirin (Aspir-Low) 81 Mg Tab, 1 TAB PO DAILY for 30 Days, #30 08/28/23 Ascorbic Acid (VITAMIN C TABLET) 500 Mg Tb, 1 TAB PO BID for 30 Days, #60 05/18/23 Pantoprazole Sodium Sesquihydr (Pantoprazole Sodium) 40 Mg Tab, 1 TAB PO DAILY 05/18/23 Past Medical History Patient Family History: Arthritis Cardiovascular disease G8 MOTHER, Onset:Unknown Cerebrovascular accident (CVA) G8 FATHER Coronary artery disease G8 MOTHER, Onset:Unknown FH: diabetes mellitus G8 MOTHER, Onset:Unknown FH: heart disease G8 MOTHER, Onset:Unknown FH: hypertension G8 MOTHER, Onset:Unknown FH: lupus 19 CHILD FH: myocardial infarction G8 MOTHER, Onset:Unknown Family history: Cardiovascular disease G8 MOTHER, Onset:Unknown G8 FATHER, Onset:Unknown Glaucoma G8 MOTHER, Onset:Unknown Review of Systems Constitutional: No symptom reported Eyes: No symptom reported Pulmonary/Respiratory: No symptom reported Cardiovascular: No symptom reported H&P Exam Vital Signs Vital Signs Date Time Temp Pulse Resp B/P (MAP) Pulse Ox O2 Delivery O2 Flow Rate FiO2 05/17/25 13:00 97.9 70 18 144/77 (99) 98 97.9 05/17/25 08:00 Nasal Cannula* 3 32 General Appeara: Well developed, Well nourished Head Exam: Normal inspection Neck Exam: Normal inspection Pulmonary/Respiratory: Normal inspection Cardiovascular/Chest: Normal inspection SEPSIS Sepsis Screen Date sepsis recognized/suspect: May 15, 2025 Time Sepsis recognized/suspect: 0745 Recent Procedure: No On Antibiotic Therapy: No Respiratory Rate >20: No Heart Rate >90: Yes Temp<36 C (96.8 F) or >38.3 C: No SBP <90 or MAP <65 mmHG: No New Acute Mental Status Change: No Is the patient on CPAP, BIPAP,: No Physician Orders Discharge (05/17/25 15:15) Vital Signs Date Time Temp Pulse Resp B/P (MAP) Pulse Ox O2 Delivery O2 Flow Rate FiO2 05/17/25 13:00 97.9 70 18 144/77 (99) 98 97.9 05/17/25 10:00 131/55 (80) 05/17/25 09:00 97.8 80 18 169/78 (108) 95 97.8 05/17/25 08:00 95 Nasal Cannula* 3 32 Labs/Xrays Labs Test 05/16/25 04:38 05/15/25 02:37 05/15/25 02:01 05/15/25 01:36 Range/Units White Blood Count 12.4 #H 4.4-10.8 10^3/uL Red Blood Count 4.37 4.0-5.20 10^6/uL Hemoglobin 13.4 12.2-16.2 g/dL Hematocrit 39.4 36.0-46.0 % Mean Corpuscular Volume 90.2 80.0-100.0 fL Mean Corpuscular Hemoglobin 30.6 28.0-32.0 pg Mean Corpuscular Hemoglobin Concent 33.9 32.0-36.0 g/dL Red Cell Distribution Width 15.4 H 11.8-14.3 % Platelet Count 225 140-450 10^3/uL Mean Platelet Volume 8.6 6.9-10.8 fL Neutrophils (%) (Auto) 80.4 H 37.0-80.0 % Lymphocytes (%) (Auto) 13.0 10.0-50.0 % Monocytes (%) (Auto) 6.4 0.0-12.0 % Eosinophils (%) (Auto) 0.1 0.0-7.0 % Basophils (%) (Auto) 0.1 0.0-2.0 % Neutrophils # (Auto) 10.0 H 1.6-8.6 10 ^3/uL Lymphocytes # (Auto) 1.6 0.4-5.4 10 ^3/uL Monocytes # (Auto) 0.8 0-1.3 10 ^3/uL Eosinophils # (Auto) 0 0-0.8 10 ^3/uL Basophils # (Auto) 0 0-0.2 10 ^3/uL Nucleated Red Blood Cells 0.0 % Sodium Level 141 136-145 mmol/L Potassium Level 4.7 3.5-5.1 mmol/L Chloride Level 110 H 98-107 mmol/L Carbon Dioxide Level 23 20-31 mmol/L Anion Gap 8 5-15 Blood Urea Nitrogen 30 H 9-23 mg/dL Creatinine 1.12 H 0.550-1.02 mg/dL Glomerular Filtration Rate Calc 50 >90 mL/min BUN/Creatinine Ratio 26.8 H 10.0-20.0 Serum Glucose 105 74-106 mg/dL Calcium Level 9.4 8.7-10.4 mg/dL Total Bilirubin 0.3 0.2-1.0 mg/dL Aspartate Amino Transferase (AST) 20 13-40 U/L Alanine Aminotransferase (ALT) 12 7-40 U/L Alkaline Phosphatase 79 46-116 U/L Total Protein 6.2 5.7-8.2 g/dL Albumin 4.0 3.2-4.8 g/dL Troponin I High Sensitivity 22 </=34 ng/L Urine Color Yellow Yellow Urine Clarity Clear Clear Urine pH 5.5 5.0-9.0 Urine Specific [place] 1.028 1.001-1.035 Urine Protein Negative Negative Urine Ketones Negative Negative Urine Blood Negative Negative /uL Urine Nitrite Negative Negative Urine Bilirubin Negative Negative Urine Urobilinogen Normal Negative mg/dL Urine Leukocyte Esterase Negative Negative /uL Urine RBC <1 0 - 4 /hpf Urine Microscopic WBC 2 0-5 /HPF Urine Squamous Epithelial Cells Few <5 /hpf Urine Bacteria None seen None Seen /hpf Urine Hyaline Casts Few 0 - 2 /lpf Urine Mucus Few None Seen Urine Glucose Normal Normal mg/dL Lactic Acid Level 0.7 0.4-2.0 mmol/L Microbiology Date/Time Source Procedure Growth Status 05/16/25 10:55 Nose MRSA Screen - Final Complete 05/15/25 02:01 Voided Urine Urine Culture - Final Complete Assessment/Plan Primary Diagnosis THIS NOTE IS FOR SERVICES RENDERED ON MAY 15, 2025 Just completed a course of Cipro proximally a week ago for UTI. 79-year-old female brought in by EMS from [facility] facility for nonspecific chest pain that started approximately hour and half prior to arrival with the associated bilateral flank pain. Patient has some dysuria. Patient is wearing a diaper. Per EMS, pre-hospital course vital signs were stable. She also mentioned some nonspecific midsternal chest discomfort/tightness. chest pain, ACS vs costochondritis hx of ACS and NSTEMi in the past, high risk recent UTI weakness CKD close monitoring chest pain work up if needed Plan discussed with: Patient LEANNA BROWN DO May 17, 2025 15:16
--- NOTE | 2025-05-17 15:19 | DVHPN2 ---
Progress Note Date Seen: May 16, 2025 Medical Necessity Reason Pt with a Central, PICC or Fol: No Subjective Patient reports: No new complaints Review of Systems: HEENT:Normal, CVS:Normal Objective vital signs Vital Sign Date Time Temp Pulse Resp B/P (MAP) Pulse Ox O2 Delivery O2 Flow Rate FiO2 05/17/25 13:00 97.9 70 18 144/77 (99) 98 97.9 05/17/25 08:00 Nasal Cannula* 3 32 Total Intake and Output 05/16/25 05/16/25 05/17/25 15:00 23:00 07:00 Intake Total 550 ml 800 ml Balance 550 ml 800 ml medications Current Medications Medications Dose Ordered Sig/Asha Route Start Time Stop Time Status Last Admin Dose Admin Enoxaparin Sodium 40 mg DAILY SC 05/15/25 10:00 05/17/25 09:08 40 MG Nitroglycerin 0.4 mg Q5MINP PRN SL 05/15/25 04:30 Morphine Sulfate 2 mg Q30M PRN IV 05/15/25 04:45 05/15/25 04:48 2 MG Ketorolac Tromethamine 30 mg Q8HPRN PRN IV 05/15/25 09:15 05/20/25 09:14 05/15/25 18:29 30 MG Ondansetron HCl 4 mg Q6HPRN PRN IV 05/16/25 00:15 05/17/25 13:42 4 MG Oxycodone/ Acetaminophen 1 tab Q4HPRN PRN PO 05/16/25 17:00 05/17/25 13:43 1 TAB laboratory and microbiology Laboratory Tests 05/16/25 04:38 Test 05/16/25 04:38 Range/Units Serum Glucose 105 74-106 mg/dL Microbiology Date/Time Source Procedure Growth Status 05/16/25 10:55 Nose MRSA Screen - Final Complete 05/15/25 02:01 Voided Urine Urine Culture - Final Complete Labs and/or images reviewed: Labs reviewed by me, Image(s) reviewed by me Problem List/Assessment/Plan Problem List/Assessment/Plan THIS NOTE IS FOR SERVICES RENDERED ON MAY 15, 2025 Just completed a course of Cipro proximally a week ago for UTI. 79-year-old female [facility] for nonspecific chest pain that started approximately hour and half prior to arrival with the associated bilateral flank pain. Patient has some dysuria. Patient is wearing a diaper. Per EMS, pre-hospital course vital signs were stable. She also mentioned some nonspecific midsternal chest discomfort/tightness. chest pain, ACS vs costochondritis hx of ACS and NSTEMi in the past, high risk recent UTI weakness CKD close monitoring chest pain work up if needed My Orders My Orders Orders - LEANNA BROWN DO Procedure Category Date Status Time Oxycodone W/ Acet PHA 05/16/25 In Process 5/325mg Tab (Percocet 17:00 Discharge DISCHARGE 05/17/25 Verified 15:15 LEANNA BROWN DO May 17, 2025 15:19
--- NOTE | 2025-05-17 20:06 | DVHDS2 ---
Discharge Summary Date of Admission May 15, 2025 at 04:41 Date of Discharge: May 17, 2025 Labs/Diagnostic Data: Laboratory Results Test 05/16/25 04:38 05/15/25 02:37 05/15/25 02:01 05/15/25 01:36 White Blood Count 12.4 10^3/uL (4.4-10.8) Red Blood Count 4.37 10^6/uL (4.0-5.20) Hemoglobin 13.4 g/dL (12.2-16.2) Hematocrit 39.4 % (36.0-46.0) Mean Corpuscular Volume 90.2 fL (80.0-100.0) Mean Corpuscular Hemoglobin 30.6 pg (28.0-32.0) Mean Corpuscular Hemoglobin Concent 33.9 g/dL (32.0-36.0) Red Cell Distribution Width 15.4 % (11.8-14.3) Platelet Count 225 10^3/uL (140-450) Mean Platelet Volume 8.6 fL (6.9-10.8) Neutrophils (%) (Auto) 80.4 % (37.0-80.0) Lymphocytes (%) (Auto) 13.0 % (10.0-50.0) Monocytes (%) (Auto) 6.4 % (0.0-12.0) Eosinophils (%) (Auto) 0.1 % (0.0-7.0) Basophils (%) (Auto) 0.1 % (0.0-2.0) Neutrophils # (Auto) 10.0 10 ^3/uL (1.6-8.6) Lymphocytes # (Auto) 1.6 10 ^3/uL (0.4-5.4) Monocytes # (Auto) 0.8 10 ^3/uL (0-1.3) Eosinophils # (Auto) 0 10 ^3/uL (0-0.8) Basophils # (Auto) 0 10 ^3/uL (0-0.2) Nucleated Red Blood Cells 0.0 % Sodium Level 141 mmol/L (136-145) Potassium Level 4.7 mmol/L (3.5-5.1) Chloride Level 110 mmol/L (98-107) Carbon Dioxide Level 23 mmol/L (20-31) Anion Gap 8 (5-15) Blood Urea Nitrogen 30 mg/dL (9-23) Creatinine 1.12 mg/dL (0.550-1.02) Glomerular Filtration Rate Calc 50 mL/min (>90) BUN/Creatinine Ratio 26.8 (10.0-20.0) Serum Glucose 105 mg/dL (74-106) Calcium Level 9.4 mg/dL (8.7-10.4) Total Bilirubin 0.3 mg/dL (0.2-1.0) Aspartate Amino Transferase (AST) 20 U/L (13-40) Alanine Aminotransferase (ALT) 12 U/L (7-40) Alkaline Phosphatase 79 U/L (46-116) Total Protein 6.2 g/dL (5.7-8.2) Albumin 4.0 g/dL (3.2-4.8) Troponin I High Sensitivity 22 ng/L (</=34) Urine Color Yellow (Yellow) Urine Clarity Clear (Clear) Urine pH 5.5 (5.0-9.0) Urine Specific [place] 1.028 (1.001-1.035) Urine Protein Negative (Negative) Urine Ketones Negative (Negative) Urine Blood Negative /uL (Negative) Urine Nitrite Negative (Negative) Urine Bilirubin Negative (Negative) Urine Urobilinogen Normal mg/dL (Negative) Urine Leukocyte Esterase Negative /uL (Negative) Urine RBC <1 /hpf (0 - 4) Urine Microscopic WBC 2 /HPF (0-5) Urine Squamous Epithelial Cells Few /hpf (<5) Urine Bacteria None seen /hpf (None Seen) Urine Hyaline Casts Few /lpf (0 - 2) Urine Mucus Few (None Seen) Urine Glucose Normal mg/dL (Normal) Lactic Acid Level 0.7 mmol/L (0.4-2.0) Other Laboratory Tests 05/16/25 04:38 Discharge Disposition: Assisted Living Facility Discharge Instruct/Medications Diet: Cardiac 2g Na,low cholest Activity: No Restrictions, As Tolerated Scheduled Ascorbic Acid (Vitamin C Tablet), 1 TAB PO BID, (Reported) Aspirin (Aspir-Low), 1 TAB PO DAILY, (Reported) Atorvastatin Calcium (Atorvastatin Calcium), 40 MG PO HS Cholecalciferol (Vitamin D3), 1 TAB PO BID, (Reported) Ciprofloxacin Hcl (Cipro), 250 MG PO BID Ciprofloxacin Hcl (Cipro), 1 TAB PO BID Clopidogrel Bisulfate (Clopidogrel), 75 MG PO DAILY Duloxetine Hydrochloride (Duloxetine Hydrochloride), 30 MG PO DAILY Fluticasone-Salmeterol (Fluticasone Propionate/SA 250-50 Mcg/Dose), 1 PUFF INH BID, (Reported) Levofloxacin Hemihydrate (Levofloxacin), 750 MG PO DAILY Metoprolol Succinate (Metoprolol Succinate Er), 1 TAB PO DAILY Multiple Vitamin (Tab-A-Radha), 1 TAB PO DAILY, (Reported) Oxybutynin Chloride (Oxybutynin Chloride), 5 MG PO Q8HR Oxycodone W/ Acetaminophen (Percocet 5/325MG), 1 TAB PO QID Pantoprazole Sodium Sesquihydr (Pantoprazole Sodium), 1 TAB PO DAILY, (Reported) Phenazopyridine HCl (Eq Urinary Pain Relief Ma), 99.5 MG PO TID Ranolazine (Ranolazine ER), 500 MG PO BID Spironolactone (Aldactone), 25 MG PO DAILY Scheduled PRN Albuterol Sulfate (Albuterol Sulfate Hfa), 2 PUFF INH Q4HPRN PRN for dyspnea, (Reported) Ipratropium-Albuterol (Ipratropium [place]/Albut), 1 VIAL NEB Q6HPRN PRN for SHORTNESS OF BREATH, (Reported) Oxycodone W/ Acetaminophen (Percocet 5/325MG), 1 TAB PO QID PRN Polyethylene Glycol 3350 (Miralax), 17 GM PO DAILY PRN for FOR CONSTIPATION, (Reported) Discharge Statement: "Patient was advised to return to the ER or call 911 if any headaches, dizziness, shortness of breath, chest pain, abdominal pain, bleeding, fevers, or worsening of medical condition. Patient was counseled about treatment plan, medications, possible side effects, patientverbalized understanding. All questions were answered to the best of my ability. This discharge took greater then 30 minutes in planning, reviewing documentation, counseling the patient, and discussing with other team members." ASSESSMENT ASSESSMENT Assessment LEANNA BROWN DO May 17, 2025 20:05
[2025-05-18 01:00] VITALS: BP 123/70; PULSE 58; RESP 18; TEMP 98.7; O2SAT 97
== END 2025-05-18 00:59 | disposition home or self-care (01) | DRG 205 ==
LOC: EDBD 00:57 → ER 00:57 → OVERFLOW 04:29 → UNDOADMIN 04:29 → OVERFLOW 04:41 → TELE-WESTW 15:04
PROVIDERS: ADMIT Internal Medicine; ATTEND Internal Medicine
DX: M94.0 Chondrocostal junction syndrome [Tietze] (principal); J96.01 Acute respiratory failure with hypoxia; I24.9 Acute ischemic heart disease, unspecified; I50.9 Heart failure, unspecified; J44.1 Chronic obstructive pulmonary disease with (acute) exacerbation; I13.0 Hypertensive heart and chronic kidney disease with heart failure and stage 1 through stage 4 chronic kidney disease, or unspecified chronic kidney disease; N18.9 Chronic kidney disease, unspecified; I25.10 Atherosclerotic heart disease of native coronary artery without angina pectoris; E78.5 Hyperlipidemia, unspecified; K21.9 Gastro-esophageal reflux disease without esophagitis; F41.9 Anxiety disorder, unspecified; M10.9 Gout, unspecified; Z87.442 Personal history of urinary calculi; Z87.891 Personal history of nicotine dependence; Z90.710 Acquired absence of both cervix and uterus; Z99.81 Dependence on supplemental oxygen; Z95.1 Presence of aortocoronary bypass graft; Z95.5 Presence of coronary angioplasty implant and graft; Z79.2 Long term (current) use of antibiotics; Z79.82 Long term (current) use of aspirin; Z79.899 Other long term (current) drug therapy; Z82.3 Family history of stroke; Z83.3 Family history of diabetes mellitus; Z82.49 Family history of ischemic heart disease and other diseases of the circulatory system; Z87.440 Personal history of urinary (tract) infections
CPT/HCPCS: 36415; 71045; 74176; 80053; 81001; 83605; 84484; 85025; 87081; 87086; 93005; 94640; G0378; J1885; J2405